=== PATIENT | male | born 1980 | race Caucasian/White ===

== ENCOUNTER 2024-12-29 11:30 | Inpatient (IN) | payer MEDICAID, SELFPAY ==
[2024-12-29] VITALS (58 sets, daily range): BP systolic 33–172; BP diastolic 22–91; PULSE 70–128; RESP 16–33; TEMP 34.8–36.3; O2SAT 35–100; BMI 43.0; BMI 41.1
--- NOTE | 2024-12-29 11:44 | CT_ITS ---
PROCEDURE: BRAIN/HEAD WITHOUT CONTRAST 12/29/2024 REASON FOR EXAM: MENTAL STATUS CHANGE TECHNIQUE: Procedure Code: CTBR Modality: CT Procedure: BRAIN/HEAD WITHOUT CONTRAST Coronal and Sagittal reconstruction series were provided. One or more dose reduction techniques were used (e.g., Automated exposure control, adjustment of the mA and/or kV according to patient size, use of iterative reconstruction technique. RADIATION DOSE SUMMARY: CTDlvol: 44.99 mGy DLP: 846.73 mGycm COMPARISON: None FINDINGS: There is loss of the normal dey-white matter differentiation and narrowing of the ventricles and near-complete effacement of the basilar cisterns consistent with diffuse cerebral edema. There is no clearly defined hyperdense subarachnoid hemorrhage. There is normal hyperdensity along the tentorium. There is no midline shift No skull fracture or scalp hematoma, there is extensive paranasal sinusitis CT/Brain/Head without Contrast IMPRESSION: Diffuse cerebral edema with loss of the dey-white matter differentiation, narr owing of the lateral ventricles and near-complete effacement of the basilar cisterns. Findings suggest anoxia No demonstrated acute hemorrhage or midline shift. Hyperdensity along the tent orium is normal No skull fracture or scalp hematoma Paranasal sinusitis Reading Location: [id number]
--- NOTE | 2024-12-29 11:45 | EKG12_ITS ---
Test Reason : Blood Pressure : */* mmHG Vent. Rate : 63 BPM Atrial Rate : 63 BPM P-R Int : 262 ms QRS Dur : 148 ms QT Int : 494 ms P-R-T Axes : 50 185 83 degrees QTcB Int : 505 ms Sinus rhythm with 1st degree A-V block with occasional Premature ventricular complexes Right bundle branch block Cannot rule out Inferior infarct , age undetermined Abnormal ECG No previous ECGs available Confirmed by ULICES ACKERMAN, MARCELA ([id number]), field map editor EMELI OLIVER ([id number]) on 12/30/2024 1:25:57 PM Referred By: Confirmed By: MARCELA ELENA MD
[2024-12-29] MEDS: Norepinephrine 8 MG in 0.9% Normal Saline (250mL Bag) 242 ML 9.4 MG CONT INF (11:47)
--- NOTE | 2024-12-29 11:47 | EX.ED.CRITCA ---
HPI History of Present Illness Chief Complaint: Cardiac Arrest Narrative Narrative: History and physical limited secondary to patient condition. History obtained from EMS. Didi reported that this was at 910 on a hanging up. It was an open call for about 20 minutes. When law enforcement arrived, patient was found outside, unresponsive, and cardiac arrest. Reportedly law enforcement performed compressions for approximately 10 minutes. Upon arrival, EMS reports that they placed him on a Arpan device and continued CPR. Patient received 3 rounds of epinephrine, then return of circulation spontaneously with palpable pulse. They gave 2 push doses of epinephrine and brought him to the emergency department. However, on arrival, patient was pulseless and cyanotic. 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 CHF (congestive heart failure) CAD (coronary artery disease) Afib Home Medications Medication Instructions Recorded Last Taken Type amiodarone 200 mg tablet 200 mg PO DAILY 12/29/24 Unknown History empagliflozin 10 mg tablet 10 mg PO DAILY 12/29/24 Unknown History (Jardiance) furosemide 40 mg tablet 40 mg PO BID 12/29/24 Unknown History metoprolol tartrate 25 mg tablet 25 mg PO BID 12/29/24 Unknown History oxycodone 5 mg tablet 5 mg PO Q6H PRN PRN pain 12/29/24 Unknown History warfarin 2 mg tablet 2 mg PO DAILY 12/29/24 Unknown History warfarin 4 mg tablet PO 12/29/24 Unknown History Allergy/AdvReac Type Severity Reaction Status Date / Time Penicillins Allergy edema Verified 12/29/24 12:40 Social History Smoking Status: Unknown if ever smoked ROS ROS ED ROS Narrative Review of systems unable to obtain from patient secondary to current condition. EXAM Physical Exam Narrative Exam Narrative: Skin cyanotic, no spontaneous respirations, no palpable pulse. Pupils fixed and dilated. No corneal reflex. Positive open wounds on bilateral thighs with surrounding erythema. Const Vital Signs: 12/29/24 11:34 12/29/24 11:40 12/29/24 11:41 Temperature 94.7 F L Temperature Source Rectal Pulse Rate 72 70 Pulse Rate [2] Respiratory Rate 18 18 Respiratory Effort Respiratory Pattern Normal Blood Pressure 85/45 L Blood Pressure Mean 58 Blood Pressure Source Blood Pressure Location Pulse Ox 92 99 Oxygen Delivery Method Mechanical Ventilator Oxygen Flow Rate (L/min) Fraction of Inspired Oxygen (FIO2) 100 12/29/24 11:44 12/29/24 11:47 12/29/24 11:52 Temperature Temperature Source Pulse Rate Pulse Rate [2] 72 Respiratory Rate Respiratory Effort Respiratory Pattern Blood Pressure 45/30 L 65/36 L Blood Pressure Mean 35 45 Blood Pressure Source Monitor Monitor Blood Pressure Location Left Arm Left Arm Pulse Ox Oxygen Delivery Method Ambu-Bag Oxygen Flow Rate (L/min) 15 Fraction of Inspired Oxygen (FIO2) 12/29/24 11:58 12/29/24 12:09 12/29/24 12:15 Temperature Temperature Source Pulse Rate 89 Pulse Rate [2] Respiratory Rate 22 H Respiratory Effort Respiratory Pattern Blood Pressure 69/36 L 85/48 L 114/54 L Blood Pressure Mean 47 60 74 Blood Pressure Source Monitor Monitor Blood Pressure Location Left Arm Left Arm Pulse Ox 97 Oxygen Delivery Method Mechanical Ventilator Oxygen Flow Rate (L/min) Fraction of Inspired Oxygen (FIO2) 12/29/24 12:18 12/29/24 12:30 12/29/24 12:30 Temperature 95.8 F L Temperature Source Temporal Pulse Rate 97 81 90 Pulse Rate [2] Respiratory Rate 19 H 18 20 H Respiratory Effort Respiratory Pattern Normal Normal Blood Pressure 149/69 H Blood Pressure Mean 95 Blood Pressure Source Blood Pressure Location Pulse Ox 97 98 97 Oxygen Delivery Method Mechanical Ventilator Oxygen Flow Rate (L/min) Fraction of Inspired Oxygen (FIO2) 70 40 12/29/24 12:34 12/29/24 12:45 12/29/24 12:47 Temperature 96 F L Temperature Source Temporal Pulse Rate 75 Pulse Rate [2] Respiratory Rate 20 H Respiratory Effort Mechanically Ventilated Respiratory Pattern Normal Blood Pressure 149/69 H 133/52 H Blood Pressure Mean 95 79 Blood Pressure Source Monitor Blood Pressure Location Pulse Ox 96 Oxygen Delivery Method Mechanical Ventilator Oxygen Flow Rate (L/min) Fraction of Inspired Oxygen (FIO2) 12/29/24 13:00 12/29/24 13:10 12/29/24 13:30 Temperature 95.5 F L Temperature Source Temporal Pulse Rate 71 72 Pulse Rate [2] Respiratory Rate 18 18 Respiratory Effort Respiratory Pattern Blood Pressure 172/76 H 172/76 H 146/65 H Blood Pressure Mean 108 108 92 Blood Pressure Source Monitor Blood Pressure Location Left Arm Pulse Ox 96 95 Oxygen Delivery Method Mechanical Ventilator Mechanical Ventilator Oxygen Flow Rate (L/min) Fraction of Inspired Oxygen (FIO2) 12/29/24 14:00 12/29/24 14:30 12/29/24 14:30 Temperature 96 F L Temperature Source Temporal Pulse Rate 78 80 78 Pulse Rate [2] Respiratory Rate 19 H 19 H 20 H Respiratory Effort Respiratory Pattern Normal Blood Pressure 129/78 H 124/75 H Blood Pressure Mean 95 91 Blood Pressure Source Blood Pressure Location Pulse Ox 97 98 97 Oxygen Delivery Method Mechanical Ventilator Mechanical Ventilator Oxygen Flow Rate (L/min) Fraction of Inspired Oxygen (FIO2) 40 12/29/24 15:00 Temperature 96.6 F L Temperature Source Temporal Pulse Rate 78 Pulse Rate [2] Respiratory Rate 20 H Respiratory Effort Respiratory Pattern Blood Pressure 137/70 H Blood Pressure Mean 92 Blood Pressure Source Blood Pressure Location Pulse Ox 97 Oxygen Delivery Method Mechanical Ventilator Oxygen Flow Rate (L/min) Fraction of Inspired Oxygen (FIO2) MDM MDM MDM Narrative Medical decision making narrative: Patient arrived in cardiac arrest. Arpan device was removed and compressions started immediately upon arrival. Patient did receive 1 ampoule of epinephrine and bicarbonate. He had spontaneous was return of circulation. Rectal temperature low at 94.7, placed on a Melanie hugger. Initial blood pressure 85/45. He was bolused an additional 1 L and placed on the nursing program manager. Igel replaced with endotracheal tube. 8.0 ET tube inserted to 26 at the lips with good color change. He did have equal breath sounds initially without epigastric noise, but ET tube had been pulled back to 26 at the lips after initial placement. CT of the brain, chest x-ray, basic laboratory work and lactic acid obtained including troponins. EKG was obtained and interpreted by myself independently normal sinus rhythm with first-degree block with occasional premature ventricular complexes at 63 bpm but no acute ST changes. No STEMI. I reviewed his laboratory work and he has a leukocytosis of 18.7, hemoglobin 12.9 with hematocrit 45.5, platelet count normal at 261. Carbon dioxide is low at 15.4, BUN is 26 with creatinine 2.35. Glucose is elevated at 275 so I do not think this was a hypoglycemic episode. Anion gap is elevated at 25. I do not feel this is diabetic ketoacidosis considering that he was in cardiac arrest. Hence, I do feel this is why his lactic acid is elevated at 12.8 and I do not think he is septic. AST elevated 97 with ALT 80 which may be secondary to hypotension/shock liver. Initial high-sensitivity troponin is 17. His xqveg-[id number]-hmck glucose was 200. Initial ABG showed pH low at 6.9 with a pCO2 elevated at 80 and pO2 328. Vent settings were changed by respiratory and repeat ABG obtained, now with a pH of 7.1 with pCO2 of 54 with pO2 at 96.5. Bicarb remains low. He is most likely acidotic from cardiac arrest. Patient was bolused a second liter of IV fluids. Additionally he was started on Levophed through the peripheral line. Received a call from the radiologist regarding the CT of the brain results. He has diffuse cerebral edema findings are consistent with diffuse anoxia. Chest x-ray in 1 view interpreted by myself independently shows the tip of the ET tube to be in good position, 2 cm above the iman. There are no pulmonary infiltrates. I reviewed the radiology report which confirms my independent interpretation. I did review outpatient information, and patient reportedly has history of renal cell carcinoma with metastasis to bone. He also has atrial fibrillation on amiodarone and warfarin. INR is currently pending. Given the severity of the results of the CT of the brain, his sister is on the way to the emergency department. His condition will be discussed with both his sister and his mother who will be on the telephone as well. I did receive the results of his INR which he takes for his atrial fibrillation and it is extremely supratherapeutic and elevated at 19. He was administered vitamin K 10 mg intravenously. In discussion with the radiologist, there was no evidence of an acute hemorrhage on the CT scan of the brain. At this point in time, in conversation with his mother and his sister, they are uncomfortable with withdrawal of care at this point in time and would like him admitted to the ICU for social work and palliative care/hospice consultation. I discussed the patient with the hospitalist for admission. Critical care time 33 minutes including time spent with direct care at bedside, arranging admission, and discussion with family. Patient in critical condition. Of note, patient is currently no longer requiring Levophed. The patient began having blood coming from his OG as well as rectally. I had a discussion with his sister currently. She is trying to have her father and her mother arrive, but knows that the signs of hemorrhage are concerning. Patient may be in DIC currently. In discussion with his sister, she is willing to sign a DNR Comfort Care only form. Hence, I do feel that since he is already intubated, that he could remain intubated and be admitted to the ICU here. She acknowledged that no further interventions would be warranted or initiated. If his blood pressure drops, pressors would not be started. She is agreeable to this. I will rediscussed the patient with Dr. Cui for admission to the ICU and palliative care/hospice consult. History & Record Review Discussion w/independent historian: EMS personnel and Family Lab Data Attestation: I reviewed the patient's lab results. Labs: Laboratory Results - last 24 hr 12/29/24 12/29/24 12/29/24 11:32 11:35 13:30 WBC 18.7 H RBC 4.70 Hgb 12.9 L Hct 45.5 MCV 96.8 H MCH 27.4 MCHC 28.4 L RDW Std Deviation 71.7 H RDW Coeff of Lee 20.1 H Plt Count 261 MPV 9.9 Neut % (Auto) Not Reportable Absolute Neuts (auto) 14.4 H Absolute Lymphs (auto) 2.98 Total Counted 100 Neutrophils % (Manual) 71 H Band Neutrophils % 6 H Lymphocytes % (Manual) 16 L Eosinophils % (Manual) 3 Metamyelocytes % 2 H Myelocytes % 2 H Diff Path Review May foll Platelet Estimate ADEQUATE RBC Morphology N CHROM Anisocytosis 1+ PT > 120.0 H INR > 19.5 H* Sodium 141 Potassium 5.0 Chloride 101 Carbon Dioxide 15.4 L Anion Gap 25 H BUN 26 H Creatinine 2.35 H Estim Creat Clear Calc 55.18 Est GFR (MDRD) Non-Af 34 L BUN/Creatinine Ratio 10.9 Glucose 275 H Lactic Acid 12.8 H* Calcium 8.6 Total Bilirubin 0.43 AST 97 H ALT 80 H Alkaline Phosphatase 96 Troponin T High Sens 17 Troponin T Hi Sens 2 Hr Total Protein 6.2 Albumin 3.4 L Globulin 2.8 Albumin/Globulin Ratio 1.2 Urine Color Urine Clarity Urine pH Ur Specific [place] Urine Protein Urine Glucose (UA) Urine Ketones Urine Occult Blood Urine Nitrite Urine Bilirubin Urine Urobilinogen Ur Leukocyte Esterase Urine RBC Urine WBC Ur Squamous Epith Cells Urine Bacteria Urine Mucus POC Glucose 200 H 12/29/24 12/29/24 13:40 14:10 WBC RBC Hgb Hct MCV MCH MCHC RDW Std Deviation RDW Coeff of Lee Plt Count MPV Neut % (Auto) Absolute Neuts (auto) Absolute Lymphs (auto) Total Counted Neutrophils % (Manual) Band Neutrophils % Lymphocytes % (Manual) Eosinophils % (Manual) Metamyelocytes % Myelocytes % Diff Path Review Platelet Estimate RBC Morphology Anisocytosis PT INR Sodium Potassium Chloride Carbon Dioxide Anion Gap BUN Creatinine Estim Creat Clear Calc Est GFR (MDRD) Non-Af BUN/Creatinine Ratio Glucose Lactic Acid Calcium Total Bilirubin AST ALT Alkaline Phosphatase Troponin T High Sens Troponin T Hi Sens 2 Hr 45 H Total Protein Albumin Globulin Albumin/Globulin Ratio Urine Color Yellow Urine Clarity Sl. Cloudy Urine pH 6.5 Ur Specific [place] 1.020 Urine Protein 500 H Urine Glucose (UA) 1000 H Urine Ketones Negative Urine Occult Blood 250 H Urine Nitrite Negative Urine Bilirubin Negative Urine Urobilinogen Normal Ur Leukocyte Esterase 25 H Urine RBC 10-25 SEEN Urine WBC 10-25 SEEN Ur Squamous Epith Cells 5-10 SEEN Urine Bacteria 0 SEEN Urine Mucus 0 SEEN POC Glucose ABG Data ABG results: ABG 12/29/24 12/29/24 12:03 13:16 Specimen Type ART ART Sample Site L Radial L Radial pH 6.92 L* 7.12 L* Bicarbonate Actual 16.6 L 17.6 L Total CO2 19 19 Base Excess -16 L -12 L O2 Saturation 100 H 94 O2 % 100.0 40.0 ABG pCO2 80.6 H* 54.0 H ABG pO2 328 H* 97 Irineo Test Positive Positive Respiration Rate 18 18 O2 Delivery Device Not entered Adult Vent Vent Mode AC AC Tidal Volume 500.0 500.0 POC PEEP 10 5 Crit Call To/Read Back Yes Yes Blood Gas Notified Whom dr jose luis guzman Blood Gas Notified Time 12:05:07 13:18:41 Radiography Chest X-Ray - ED: 1 View, Read by ED Physician, Read by Radiologist and No Acute Disease Diagnostic Testing: Clinical Impression(s) from Imaging Studies Brain CT 12/29/24 11:44 IMPRESSION: Diffuse cerebral edema with loss of the dey-white matter differentiation, narrowing of the lateral ventricles and near-complete effacement of the basilar cisterns. Findings suggest anoxia No demonstrated acute hemorrhage or midline shift. Hyperdensity along the tentorium is normal No skull fracture or scalp hematoma Paranasal sinusitis Reading Location: [id number] Chest X-Ray 12/29/24 12:01 IMPRESSION: No acute pulmonary process Support lines and tubes as described, no complications Reading Location: [facility] Management Discussion w/another healthcare provider: Hospitalist and hardboard factory worker/Case management Critical Care Time Critical care time (excluding procedures): 30-74 minutes (33), Including time spent:, Discussing w/Patient &/or Family/Sanitation Truck Cleaner, Discussing w/Consultants, Arranging Admission or Transfer and Performing Direct Patient Care at Bedside Discharge Plan Dx/Rx/DC Orders Clinical Impression: Cardiopulmonary arrest, Coma after anoxic event, Supratherapeutic INR, Anoxic cerebral edema, Respiratory failure Disposition Disposition: Acute Care [facility]
--- OUTSIDE RECORDS SUMMARY | 2024-12-29 11:52 | XMS RPT_ITS | CCD ---
Author Organization [facility] Care Team Providers Care Conservation Science Teacher Name Role Phone LOKI DR PROSPER ALSTON Primary Care Physician [phone] Prosper Manjarrez Unavailable Oncology Consult Unavailable Unavailable Supportive Oncology Unavailable Unavailable AbuGeorgia Sifuentes Unavailable Unavailable Cardiac Surgery Unavailable Unavailable Severo, Raju Unavailable Doron Gonzalez Unavailable Dr. Prosper Manjarrez Primary Care Unavaila Dr. Rivka Hinton Attending Unavailable AbuBear, Dr. Dorman Referring Unavailable Prosper Manjarrez Unavailable Unavailable Unavailable Loki, Dr. Prosper Carballo Primary Care UnavailMD GEORGIA Harris Attending Unavailable Georgia Brady Admitting Unavailable Han Stover Admitting Unavailable Loki, Dr. Prosper Carballo Primary Care UnavailHan Fuchs Attending Unavailable Loki, Dr. Prosper Carballo Primary Care UnavailDr. Lance Davila Admitting Unavailable Patient, Unavailable Referring Unavailable MD GEORGIA BRADY Attending Unavailable Loki, Dr. Prosper Carballo Primary Care UnavailMD GEORGIA Harris Attending Unavailable DORON GONZALEZ Attending Unavailable PROSPER MANJARREZ Primary Care Unavailable LOKIPROSPER Shea Primary Care Unavailable Loki Prosper ALSTON Primary Care Provider Rachael vailable SEVERORIVKA Referring Unavailable PROSPER MANJARREZ Primary Care Unavailable SEVERO RAJU Referring Unavailable LOKIPROSPER Shea Primary Care Unavailable Mayito Rounding Nurse, Robert Unavailable Unavai lable Garza, Estella S Unavailable Unavailable LOKI DO, DR PROSPER Valenzuela Primary Care Unavailabl e BHAVIK TRIANA Attending Unavailable LOKI DO, DR PROSPER Valenzuela Primary Care Unavailabl e BHAVIK TRIANA Attending Unavailable LOKI DO, DR PROSPER Valenzuela Primary Care Unavailabl e BHAVIK TRIANA Attending Unavailable LOKI DO, DR PROSPER Valenzuela Primary Care Unavailabl e BHAVIK TRIANA Admitting Unavailable BHAVIK TRIANA Attending Unavailable LOKI DO, DR PROSPER Valenzuela Primary Care Unavailabl e BHAVIK TRIANA Attending Unavailable LOKI DO, DR PROSPER Valenzuela Primary Care Unavailabl e LOKI DO, DR PROSPER Valenzuela Attending Unavailabl e JILL WHEAT Consulting Unavaila ble KAPPER EKG MONITOR-WORD PROCESSING SPECIALIST, MURALI Saldaña Referring Unavaila ble KAPPER EKG MONITOR-WORD PROCESSING SPECIALIST, MURALI Saldaña Attending Unavaila ble KAPPER EKG MONITOR-WORD PROCESSING SPECIALIST, MURALI Saldaña Admitting Unavaila ble LOKI DO, DR PROSPER Valenzuela Primary Care Unavailabl e LAURA ACKERMAN, REGINA Consulting Unavailable MARIO COCHRAN MD Attending Unavailable LOKI DO, DR PROSPER Valenzuela Primary Care Unavailabl e LOKI DO, DR PROSPER Valenzuela Primary Care Unavailabl e BHAVIK TRIANA Attending Unavailable ANDI STINSON MD Consulting Unavailable PRISCILLA BULL MD Attending Unavailable REGINA SANCHEZ MD Admitting Unavailable LOKI DO, DR PROSPER Valenzuela Primary Care Unavailabl e NOAH SEPULVEDA MD Consulting Unavailable EMILIO LOPEZ Consulting Unavailable LOKI DO, DR PROSPER Valenzuela Consulting Unavailabl e CORBY REESE MD Consulting Unavaila ble JANINA SEPULVEDA Consulting Unavai lable LOKI DO, DR PROSPER Valenzuela Primary Care Unavailabl e BHAVIK TRIANA Attending Unavailable LIAN FUNG MD Attending Unavailable LOKI DO, DR PROSPER Valenzuela Primary Care Unavailabl LIAN Mayorga MD Attending Unavailable LOKI DO, DR PROSPER Valenzuela Primary Care Unavailabl LIAN Mayorga MD Attending Unavailable LOKI DO, DR PROSPER Valenzuela Primary Care Unavailabl e LOKI DO, DR PROSPER Valenzuela Primary Care Unavailabl e BHAVIK TRIANA Attending Unavailable LOKI DO, DR PROSPER Valenzuela Primary Care Unavailabl e BHAVIK TRIANA Attending Unavailable LOKI DO, DR PROSPER Valenzuela Primary Care Unavailabl e BHAVIK TRIANA Attending Unavailable LOKI DO, DR PROSPER Valenzuela Primary Care Unavailabl e BHAVIK TRIANA Attending Unavailable LOKI DO, DR PROSPER Valenzuela Primary Care Unavailabl BHAVIK Dobbs Attending Unavailable LOKI DO, DR PROSPER Valenzuela Primary Care Unavailabl e BHAVIK TRIANA Attending Unavailable Yessi ACKERMAN, Noah Saldaña Unavailable [place] [address], [facility] Referring Unavailable [facility], [facility] Primary Care Unavailable Estella Hanson Attending Unavailable LOKI, PROSPER DO Consulting Unavailable LOKI, PROSPER DO Referring Unavailable SANCHEZ, SOURAV DO Admitting Unavailable SANCHEZ, SOURAV DO Primary Care Unavailable SANCHEZ, SOURAV DO Attending Unavailable PROVIDER, UNKNOWN Consulting Unavailable SANCHEZ, SOURAV DO Admitting Unavailable SANCHEZ, SOURAV DO Primary Care Unavailable SANCHEZ, SOURAV DO Attending Unavailable LOKI, PROSPER DO Consulting Unavailable PROVIDER, UNKNOWN Consulting Unavailable RIDER DO, DR LISBET Tay Attending Unavailable LOIK DO, DR PROSPER Valenzuela Primary Care Unavailabl LIAN Mayorga Attending Unavailable LOKI DO, DR PROSPER Valenzuela Primary Care Unavailabl e OLKI DO, DR PROSPER Valenzuela Primary Care Unavailabl e LOKI DO, DR PROSPER Valenzuela Attending Unavailabl e LOKI DO, DR PROSPER Valenzuela Primary Care Unavailabl e DONNA MOCK MD Attending Unavail able ELVIS MILLER, EZEQUIEL Attending Unavail able LOKI DO, DR PROSPER Valenzuela Primary Care Unavailabl e ELVIS MILLER, EZEQUIEL Attending Unavail able LOKI DO, DR PROSPER Valenzuela Primary Care Unavailabl e LOKI DO, DR PROSPER Valenzuela Primary Care Unavailabl e EZEQUIEL MULLER Attending Unavail able NIRALI ACKERMAN, DR GUTIERRES Attending Unavailable LOKI DO, DR PROSPER Valenzuela Primary Care Unavailabl rosalio TRIANA MD, DR GUTIERRES Attending Unavailable LOKI DO, DR PROSPER Valenzuela Primary Care Unavailabl e LOKI DO, DR PROSPER Valenzuela Attending Unavailabl e LOKI DO, DR PROSPER Valenzuela Primary Care Unavailabl e HERMAN MURILLO Attending Unava ilable LOKI DO, DR PROSPER Valenzuela Primary Care Unavailabl rosalio TRIANA MD, DR GUTIERRES Attending Unavailable LOKI DO, DR PROSPER Valenzuela Primary Care Unavailabl rosalio TRIANA MD, DR GUTIERRES Attending Unavailable LOKI DO, DR PROSPER Valenzuela Primary Care Unavailabl e ELVIS MILLER, EZEQUIEL Attending Unavail able LOKI DO, DR PROSPER Valenzuela Primary Care Unavailabl e LOKI DO, DR PROSPER Valenzuela Primary Care Unavailabl e LOKI DO, DR PROSPER Valenzuela Attending Unavailabl e LOKI DO, DR PROSPER Valenzuela Attending Unavailabl e LOKI DO, DR PROSPER Valenzuela Primary Care Unavailabl e LOKI DO, DR PROSPER Valenzuela Primary Care Unavailabl e FROMMELT DO, NORMA Attending Unavailable NIRALI ACKERMAN, DR GUTIERRES Attending Unavailable LOKI DO, DR PROSPER Valenzuela Primary Care Unavailadrian TRIANA MD, DR GUTIERRES Attending Unavailable LOKI DO, DR CHENG A Primary Care Unavailadrian TRIANA MD, DR GUTIERRES Attending Unavailable LOKI DO, DR PROSPER Valenzuela Primary Care Unavailabl e ELVIS MILLER, EZEUQIEL Attending Unavail able LOKI DO, DR PROSPER Valenzuela Primary Care Unavailabl e ELVIS MILLER, EZEQUIEL Attending Unavail able LOKI DO, DR PROSPER Valenzuela Primary Care Unavailadrian TRIANA MD, DR GUTIERRES Attending Unavailable LOKI DO, DR PROSPER Valenzuela Primary Care Unavailadrian TRIANA MD, DR GUTIERRES Attending Unavailable LOKI DO, DR PROSPER Valenzuela Primary Care Unavailabl e ELVIS MILLER, EZEQUIEL Attending Unavail able LOKI DO, DR CHENG A Primary Care Unavailadrian TRIANA MD, DR GUTIERRES Attending Unavailable LOKI DO, DR PROSPER Valenzuela Primary Care Unavailadrian TRIANA MD, DR GUTIERRES Attending Unavailable LOKI DO, DR PROSPER Valenzuela Primary Care Unavailabl e LOKI DO, DR CHENG A Primary Care Unavailadrian TRIANA MD, DR GUTIERRES Attending Unavailable LOKI DO, DR PROSPER Valenzuela Primary Care Unavailabl e ELVIS MILLRE, EZEQUIEL Attending Unavail able LORNA ACKERMAN, PAM HAMLIN MD, AISHWARYA Admitting Unavailable AISHWARYA HAMLIN MD Attending Unavailable LOKI DO, DR CHENG A Primary Care Unavailabl e ELVIS MILLER, EZEQUIEL Attending Unavail able LOKI DO, DR CHENG A Primary Care UnavailLIAN Archuleta MD Attending Unavailable LOKI DO, DR PROSPER Valenzuela Primary Care Unavailadrian TRIANA MD, DR GUTIERRES Attending Unavailable LOKI DO, DR CHENG A Primary Care Unavailabl rosalio HAMLIN MD, AISHWARYA Attending Unavailable LOKI DO, DR CHENG A [facility] Allergies Allergy Classification Reported Allergen(s) Allergy Type Date of Onset Reaction(s) Facility Penicillins (antibiotic) (2 sources) Penicillin; Translations: [penicillins] Drug Allergy Swelling [facility] (20 sources) Penicillin; Translations: [penicillins] Drug Allergy Swelling, Throat Swelling, Facial Swelling [facility] (6 sources) Penicillins; Translations: [Penicillins] Allergy to drug (finding) 3 [facility] (2 sources) Penicillins Propensity to adverse reactions 3 [facility] (1 source) Penicillin Drug Allergy [facility] Medications Current Medications Medication Drug Class(es) Dates Sig (Normalized) Sig (Original) acetaminophen 325 mg oral tablet (1 source) take 2 tablets by mouth every four hours as needed acetaminophen 325 mg oral tablet ; 2 tab(s) orally every 4 hours, As Needed for mild to moderate pain Quantity: 0 Refills: 0 Ordered: 29-Aug-2022 Sally Johnson Generic Substitution Allowed acetaminophen 325 mg / HYDROcodone bitartrate 5 mg oral tablet (1 source) Opioid Agonist Start: 10-26-2023 End: 10-29-2023 take 1 tablet by mouth every six hours as needed for pain [place] 325- 5 mg oral tablet Dose = 1 tab(s), Oral, q6h, PRN as needed for pain, X 3 day(s), # 12 tab(s), 0 Refill(s), Abscess, 154.2 Start Date: 10/26/23 Stop Date: 10/29/23 Status: Ordered amiodarone hydrochloride 200 mg oral tablet (20 sources) Antiarrhythmic Start: 10-22-2024 amiodarone 200 mg oral tablet Dose : 200 mg = 1 tab(s), Oral, qDay, # 30 tab(s), 5 Refill(s), Pharmacy: [facility]/pharmacy #[id number], 172.5, cm, 10/22/24 10:08:00 EDT, Height, kg, 10/22/24 10:08:00 EDT, Dosing Weight Start Date: 10/22/24 Status: Ordered Medication Dispense Status: Completed Quantity: 30.0 Unit: tab(s) Total Allowed Fills: 6 Fills Dispensed: 0 Start: 07-10-2024 amiodarone 200 mg oral tablet Dose : 200 mg = 1 tab(s), Oral, qDay, # 30 tab(s), 2 Refill(s), [id number], 172.2, cm, 07/03/24 11:40:00 EDT, Height, kg, 07/03/24 11:40:00 EDT, Dosing Weight Start Date: 07/10/24 Status: Ordered Medication Dispense Status: Completed Quantity: 30.0 Unit: tab(s) Total Allowed Fills: 3 Fills Dispensed: 0 Start: 05-15-2024 amiodarone 200 mg oral tablet Dose : 200 mg = 1 tab(s), Oral, qDay, # 30 tab(s), 0 Refill(s), [id number], 172.2, cm, 05/15/24 14:44:00 EDT, Height, kg, 05/15/24 14:44:00 EDT, Dosing Weight Start Date: 05/15/24 Status: Ordered Quantity: 30.0 Unit: tab(s) Repeat number: 1 Start: 09-05-2022 Amiodarone HCl - 200 MG Oral Tablet Quantity: 0 Refills: 0 Ordered: 05-Sep-2022 DO Start : 05-Sep-2022 Active Start: 08-29-2022 End: 09-27-2022 amiodarone 200 mg oral table t Dose : 200 mg = 1 tab(s), Oral, qDay, # 90 tab(s), 0 Refill(s) Start Date: 09/01/22 Status: Ordered Quantity: 90.0 Unit: tab(s) Repeat number: 1 aspirin 81 mg delayed release oral tablet (1 source) Platelet Aggregation Inhibitor, Nonsteroidal Anti-inflammatory Drug Start: 08-25-2022 take 1 tablet by mouth once daily aspirin 81 mg oral delayed release tablet ; 1 tab(s) orally once a day Quantity: 0 Refills: 0 Ordered: 25-Aug-2022 Sally Johnson Start: 25-Aug-2022 Generic Substitution Allowed betamethasone 0.5 mg/ml / clotrimazole 10 mg/ml topical cream (20 sources) Azole Antifungal, Corticosteroid Start: 11-30-2023 betamethasone-hua trimazole 0.05%-1% topical cream Apply 1 julia, Topical, BID, for 2 weeks then take 1 week off, may repeat if needed, # 45 gram(s), 0 Refill(s), Pharmacy: [facility]/pharmacy #[id number], Cream, 173.5, cm, 11/30/23 15:22:00 EDT, Height, 141.9, kg, 11/30/23 15:22:00 EDT, Dosing Weight Start Date: 11/30/23 Status: Ordered Medication Dispense Status: Completed Quantity: 45.0 Unit: g Total Allowed Fills: 1 Fills Dispensed: 0 Indications: Rash and other nonspecific skin eruption; cephalexin 500 mg oral capsule (3 sources) Cephalosporin Antibacterial Start: 01-25-2024 End: 02-04-2024 cephalexin 500 mg oral capsule Dose : 500 mg = 1 cap(s), Oral, QID, X 10 day(s), # 40 cap(s), 0 Refill(s), 02/04/24 1:22:00 AM EST, 136.4 Start Date: 01/25/24 Stop Date: 02/04/24 Status: Ordered Start: 09-12-2023 cephalexin 500 mg oral capsule 0 Refill(s), 181.8 Start Date: 09/12/23 Status: Ordered Start: 08-31-2023 End: 09-07-2023 cephalexin 500 mg oral capsu le Dose : 500 mg = 1 cap(s), Oral, q6hr, X 7 day(s), # 28 cap(s), 0 Refill(s), 09/07/23 6:55:00 PM EDT, 181.8 Start Date: 08/31/23 Stop Date: 09/07/23 Status: Ordered clindamycin 10 mg/ml topical lotion (5 sources) Lincosamide Antibacterial Start: 08-24-2023 clindamycin 1% topical lotion Apply 1 julia, Topical, BID, # 60 mL, 0 Refill(s), 181 Start Date: 08/24/23 Status: Ordered Start: 09-01-2021 clindamycin 15 0 mg oral capsule Dose : 150 mg = 1 cap(s), 0 Refill(s), 163.5 Start Date: 09/01/21 Status: Ordered Start: 08-03-2021 End: 08-10-2021 clindamycin 300 mg oral caps ule Dose : 300 mg = 1 cap(s), Oral, q6h, X 7 day(s), # 28 cap(s), 0 Refill(s), 08/10/21 11:28:00 EDT, 168.1 Start Date: 08/03/21 Stop Date: 08/10/21 Status: Ordered DME MISCellaneous (12 sources) Start: 08-28-2024 DME MISCellane ous See Instructions, 4x4 nonadherent gauze pads. 1 box., # 1 EA, 2 Refill(s), Surgical wound present, 124.8 Start Date: 08/28/24 Status: Ordered Medication Dispense Status: Completed Quantity: 1.0 Unit: EA Total Allowed Fills: 3 Fills Dispensed: 0 Indications: Other injury of unspecified body region, initial encounter; Start: 08-28-2024 DME MISCellane ous See Instructions, 3x4 inch nonadherent bandage. #50, # 1 EA, 2 Refill(s), Surgical wound present, 124.8 Start Date: 08/28/24 Status: Ordered Medication Dispense Status: Completed Quantity: 1.0 Unit: EA Total Allowed Fills: 3 Fills Dispensed: 0 Indications: Other injury of unspecified body region, initial encounter; Start: 08-28-2024 DME MISCellane ous See Instructions, paper tape. 1 roll, # 1 EA, 2 Refill(s), Surgical wound present, 124.8 Start Date: 08/28/24 Status: Ordered Medication Dispense Status: Completed Quantity: 1.0 Unit: EA Total Allowed Fills: 3 Fills Dispensed: 0 Indications: Other injury of unspecified body region, initial encounter; doxycycline hyclate 100 mg oral capsule (5 sources) Tetracycline-class Drug Start: 10-26-2023 End: 11-05-2023 doxycycline hyclate 100 mg oral capsule Dose : 100 mg = 1 cap(s), Oral, BID, X 10 day(s), # 20 cap(s), 0 Refill(s), 11/05/23 2:18:00 PM EDT, 154.2 Start Date: 10/26/23 Stop Date: 11/05/23 Status: Ordered Start: 10-20-2022 End: 10-30-2022 doxycycline hyclate 100 mg o ral capsule Dose : 100 mg = 1 cap(s), Oral, BID, X 10 day(s), # 20 cap(s), 0 Refill(s), 10/30/22 11:04:00 AM EDT, [id number], Folliculitis, 173, cm, 10/20/22 10:27:00 EDT, Height, 172.1, kg, 10/20/22 10:27:00 EDT, Dosing Weight Start Date: 10/20/22 Stop Date: 10/30/22 Status: Ordered empagliflozin 10 mg oral tablet (20 sources) Sodium-Glucose Cotransporter 2 Inhibitor Start: 05-15-2024 End: 02-22-2025 Jardiance 10 mg oral tablet Dose : 10 mg = 1 tab(s), Oral, qAM, # 90 tab(s), 3 Refill(s), [id number], 172.2, cm, 08/09/24 9:40:00 EDT, Height, kg, 08/09/24 9:40:00 EDT, Dosing Weight Start Date: 08/26/24 Stop Date: 02/22/25 Status: Ordered Medication Dispense Status: Completed Quantity: 90.0 Unit: tab(s) Total Allowed Fills: 4 Fills Dispensed: 0 Start: 09-26-2023 End: 05-13-2024 Jardiance 10 mg oral tablet Dose : 10 mg = 1 tab(s), Oral, qAM, # 30 tab(s), 5 Refill(s), Pharmacy: [facility]/pharmacy #[id number], 172.7, cm, 10/31/23 7:00:00 EDT, Height, kg, 10/31/23 7:00:00 EDT, Dosing Weight Start Date: 11/15/23 Stop Date: 05/13/24 Status: Ordered Quantity: 30.0 Unit: tab(s) Repeat number: 6 famotidine 20 mg oral tablet (20 sources) Histamine-2 Receptor Antagonist Start: 03-11-2024 take 1 tablet by mouth twice daily as needed famotidine 20 mg oral tablet See Instructions, 1 tab(s) Oral BID as needed for heart burn, # 60 tab(s), 5 Refill(s), [id number], 172.5, cm, 03/04/24 13:37:00 EST, Height, kg, 03/04/24 13:37:00 EST, Dosing Weight Start Date: 03/11/24 Status: Ordered Medication Dispense Status: Completed Quantity: 60.0 Unit: tab(s) Total Allowed Fills: 6 Fills Dispensed: 0 Start: 01-22-2024 take 1 tablet by danyelle twice daily as needed famotidine 20 mg oral tablet See Instructions, 1 tab(s) Oral BID as needed for heart burn, # 30 tab(s), 0 Refill(s), [id number], 172.7, cm, 12/27/23 10:34:00 EST, Height, kg, 01/22/24 11:23:00 EST, Dosing Weight Start Date: 01/22/24 Status: Ordered Quantity: 30.0 Unit: tab(s) Repeat number: 1 FLUoxetine 10 mg oral capsule (5 sources) Serotonin Reuptake Inhibitor Start: 08-07-2024 FLUoxetine 10 mg ora l capsule Dose : 10 mg = 1 cap(s), Oral, qDay, # 30 cap(s), 0 Refill(s) Start Date: 08/07/24 Status: Ordered Medication Dispense Status: Completed Quantity: 30.0 Unit: cap(s) Total Allowed Fills: 1 Fills Dispensed: 0 furosemide 40 mg oral tablet (20 sources) Loop Diuretic Start: 04-02-2024 Lasix 40 mg or al tablet Dose : 40 mg = 1 tab(s), Oral, BID, # 180 tab(s), 3 Refill(s), Pharmacy: [facility]/pharmacy #[id number], 172, cm, 03/11/24 15:17:00 EST, Height, kg, 04/02/24 11:06:00 EST, Dosing Weight Start Date: 04/02/24 Status: Ordered Medication Dispense Status: Completed Quantity: 180.0 Unit: tab(s) Total Allowed Fills: 4 Fills Dispensed: 0 Start: 09-27-2023 End: 03-29-2024 Lasix 40 mg oral tablet Dose : 40 mg = 1 tab(s), Oral, BID, # 60 tab(s), 4 Refill(s), Pharmacy: [facility]/pharmacy #[id number], 172.7, cm, 10/31/23 7:00:00 EDT, Height, kg, 10/31/23 7:00:00 EDT, Dosing Weight Start Date: 10/31/23 Stop Date: 03/29/24 Status: Ordered Quantity: 60.0 Unit: tab(s) Repeat number: 5 hydrOXYzine pamoate 25 mg oral capsule (1 source) Antihistamine Start: 01-26-2022 End: 02-02-2022 Vistaril 25 mg oral capsule Dose : 25 mg = 1 cap(s), Oral, QID, PRN as needed for anxiety, X 7 day(s), # 30 cap(s), 0 Refill(s), 02/02/22 11:16:00 EST, Anxiety Start Date: 01/26/22 Stop Date: 02/02/22 Status: Ordered iv contrast (will be provided with radiology test) (1 source) Start: 11-23-2023 End: 11-24-2023 iv contrast (will be provided with radiology test) Indications: Other secondary pulmonary hypertension (HCC) , CTEPH (chronic thromboembolic pulmonary hypertension) (HCC) , SOB (shortness of breath) CT Chest PE -Inject, intravenously, once for 1 dose.No IV access, insert saline lock prior to the beginning of sedation, infusion, injection of imaging exam. Discontinue saline lock post exam. If Pt. has a central line or IVAD, may access for administration according to line specific nursing protocol. Once exam is complete flush line and de-access according to line specific nursing protocol in the CT contrast administration guidelines link. 1 Each 11/23/2023 11/24/2023 Active ketoconazole 20 mg/ml medicated shampoo (3 sources) Azole Antifungal Start: 08-24-2023 ketoconazole 2% topical shampoo USE A WASH TO GROIN FOLDS ONCE DAILY FOR TWO WEEKS THEN DECREASE TO 2-3X WEEKLY FOR MAINTENANCE Start Date: 08/24/23 Status: Ordered linezolid 600 mg oral tablet (6 sources) Oxazolidinone Antibacterial Start: 07-22-2024 End: 07-29-2024 linezolid 600 mg oral tablet Dose : 600 mg = 1 tab(s), Oral, q12h, X 7 day(s), # 14 tab(s), 0 Refill(s), 07/29/24 3:04:00 PM EDT, Pharmacy: [facility]/pharmacy #[id number], Abscess of right thigh, 172, cm, 07/22/24 13:47:00 EDT, Height, 123, kg, 07/22/24 13:47:00 EDT, Dosing Weight Start Date: 07/22/24 Stop Date: 07/29/24 Status: Ordered Quantity: 14.0 Unit: tab(s) Repeat number: 1 Indications: Cutaneous abscess of right lower limb; Start: 02-26-2024 End: 03-07-2024 linezolid 600 mg oral tablet mg = tab(s), Oral, q12h, 0 Refill(s), 135.4 Start Date: 03/04/24 Status: Ordered Repeat number: 1 Lopressor 25mg--USE metoprolol tartrate 25 mg oral tablet (17 sources) Start: 09-01-2022 take 1 tablet by mouth once daily Lopressor 25mg--USE metoprolol tartrate 25 mg oral tablet qDay, 0 Refill(s) Start Date: 09/01/22 Status: Ordered Start: 09-01-2022 take 1 tablet by danyelle th twice daily Lopressor 25mg--USE metoprolol tartrate 25 mg oral tablet BID, 0 Refill(s) Start Date: 09/01/22 Status: Ordered Start: 09-01-2022 Lopressor 25mg --USE metoprolol tartrate 25 mg oral tablet 0 Refill(s) Start Date: 09/01/22 Status: Ordered melatonin 5 mg oral tablet (1 source) take 1 tablet by mouth once daily at bedtime melatonin 5 mg oral tablet ; 1 tab(s) orally once a day (at bedtime) Quantity: 0 Refills: 0 Ordered: 25-Aug-2022 Sally Johnson Generic Substitution Allowed meloxicam 15 mg oral tablet (1 source) Nonsteroidal Anti-inflammatory Drug Start: meloxicam 15 mg oral tablet Dose : 15 mg = 1 tab(s), Oral, qDay, # 30 tab(s), 0 Refill(s), Pharmacy: [facility]/pharmacy #[id number], Arthropathy of right shoulder, 172, cm, 12/08/21 10:24:00 EDT, Height Start Date: 12/08/21 Status: Ordered methylPREDNISolone 4 mg oral tablet (1 source) Corticosteroid Start: End: Medrol Dosepak 4 mg oral tablet 1 packet(s), Oral, qDay, as directed on package labeling, X 6 day(s), # 21 tab(s), 0 Refill(s), 08/02/23 3:37:00 PM EDT, [id number], 174, cm, 07/27/23 14:18:00 EDT, Height, kg, 07/27/23 14:18:00 EDT, Dosing Weight Start Date: 07/27/23 Stop Date: 08/02/23 Status: Ordered metoprolol tartrate 25 mg oral tablet (20 sources) beta-Adrenergic Nitesh Start: metoprolol tartrate 25 mg oral tablet Dose : 25 mg = 1 tab(s), Oral, BID, # 200 tab(s), 3 Refill(s), [id number], 172.7, cm, 10/30/24 14:33:00 EDT, Height, kg, 10/30/24 14:33:00 EDT, Dosing Weight Start Date: 10/30/24 Status: Ordered Medication Dispense Status: Completed Quantity: 200.0 Unit: tab(s) Total Allowed Fills: 4 Fills Dispensed: 0 Start: 10-22-2024 metoprolol tar trate 25 mg oral tablet Dose : 25 mg = 1 tab(s), Oral, BID, # 60 tab(s), 5 Refill(s), Pharmacy: [facility]/pharmacy #[id number], 172.5, cm, 10/22/24 10:08:00 EDT, Height, kg, 10/22/24 10:08:00 EDT, Dosing Weight Start Date: 10/22/24 Status: Ordered Medication Dispense Status: Completed Quantity: 60.0 Unit: tab(s) Total Allowed Fills: 6 Fills Dispensed: 0 Start: 10-31-2023 End: 06-19-2025 metoprolol tartrate 25 mg or al tablet Dose : 25 mg = 1 tab(s), Oral, BID, 0 Refill(s) Start Date: 10/31/23 Status: Ordered Medication Dispense Status: Completed Total Allowed Fills: 1 Fills Dispensed: 0 Start: 09-25-2023 End: 09-25-2023 Toprol-XL Start: 09/25/23 8:0 0:00 AM EDT, Dose = 25 mg, = 1 tab(s), Oral, 09/18/23 17:00:00 EDT Start Date: 09/25/23 Stop Date: 09/25/23 Status: Completed Start: 09-24-2023 End: 09-24-2023 Toprol-XL Start: 09/24/23 5:0 0:00 PM EDT, Dose = 25 mg, = 1 tab(s), Oral, 09/18/23 17:00:00 EDT Start Date: 09/24/23 Stop Date: 09/24/23 Status: Completed Start: 09-17-2023 End: 09-17-2023 Metoprolol Tartrate 25 mg or al tablet Start: 09/17/23 5:00:00 PM EDT, Dose = 25 mg, = 1 tab(s), Oral, 0, 09/12/23 17:35:00 EDT Start Date: 09/17/23 Stop Date: 09/17/23 Status: Completed Start: 09-17-2023 End: 09-17-2023 Metoprolol Tartrate 25 mg or al tablet Start: 09/17/23 8:00:00 AM EDT, Dose = 25 mg, = 1 tab(s), Oral, 0, 09/12/23 17:35:00 EDT Start Date: 09/17/23 Stop Date: 09/17/23 Status: Completed Start: 08-29-2022 End: 09-27-2022 take 1 tablet by mouth twice daily Metoprolol Tartrate 25 MG Oral Tablet TAKE 1 TABLET TWICE DAILY. Quantity: 180 Refills: 3 Ordered: 16-Sep-2022 Rivka Elkins MD Start : 16-Sep-2022 Active 09/16 tyson woodard sent in error. Start: 08-09-2022 End: 08-09-2022 Lopressor Start: 08/09/22 16 :00:00 EDT, Dose = 100 mg, = 1 tab(s), Oral, Hold if SBP (mmHg) Start Date: 08/09/22 Stop Date: 08/09/22 Status: Completed Start: 08-09-2022 End: 08-09-2022 Lopressor Start: 08/09/22 8: 00:00 EDT, Dose = 100 mg, = 1 tab(s), Oral, Hold if SBP (mmHg) Start Date: 08/09/22 Stop Date: 08/09/22 Status: Completed Start: 08-09-2022 End: 08-09-2022 Lopressor Start: 08/09/22 0: 00:00 EDT, Dose = 100 mg, = 1 tab(s), Oral, Hold if SBP (mmHg) Start Date: 08/09/22 Stop Date: 08/09/22 Status: Completed metroNIDAZOLE 500 mg oral tablet (4 sources) Nitroimidazole Antimicrobial Start: 07-30-2024 End: 08-21-2024 metroNIDAZOLE 500 mg oral tablet Dose : 500 mg = 1 tab(s), Oral, q8h, # 42 tab(s), 0 Refill(s), 125.6 Start Date: 08/07/24 Stop Date: 08/21/24 Status: Ordered Quantity: 42.0 Unit: tab(s) Repeat number: 1 minocycline 100 mg oral capsule (3 sources) Tetracycline-class Drug Start: 07-30-2024 End: 08-13-2024 minocycline 100 mg oral capsule Dose : 100 mg = 1 cap(s), Oral, q12hr, X 14 day(s), # 28 cap(s), 0 Refill(s), 08/13/24 4:59:00 PM EDT, Pharmacy: [facility]/pharmacy #[id number], 172.7, cm, 07/30/24 13:53:00 EDT, Height, 122, kg, 07/30/24 13:53:00 EDT, Dosing Weight Start Date: 07/30/24 Stop Date: 08/13/24 Status: Ordered Quantity: 28.0 Unit: cap(s) Repeat number: 1 Multiple Vitamins with Minerals oral tablet (1 source) Start: 08-25-2022 take 1 tablet by mouth once daily Multiple Vitamins with Minerals oral tablet ; 1 tab(s) orally once a day Quantity: 0 Refills: 0 Ordered: 25-Aug-2022 Sally Johnson Start: 25-Aug-2022 Generic Substitution Allowed 24 hr nicotine 0.875 mg/hr transdermal system (6 sources) Cholinergic Nicotinic Agonist Start: 10-20-2022 End: 11-10-2022 apply 1 dose transdermal route once daily nicotine 14mg / 24hrs transdermal patch Dose = 1 patch(es), Transdermal, qDay, use after 21 mg patches, X 21 day(s), # 21 patch(es), 0 Refill(s), [id number], Current smoker, 173, cm, 10/20/22 10:27:00 EDT, Height, kg, 10/20/22 10:27:00 EDT, Dosing Weight Start Date: 10/20/22 Stop Date: 11/10/22 Status: Ordered Start: 10-20-2022 End: 11-10-2022 apply 1 dose transdermal route once daily nicotine 21mg / 24hrs transdermal patch Dose = 1 patch(es), Transdermal, qDay, X 21 day(s), # 21 patch(es), 0 Refill(s), [id number], Current smoker, 173, cm, 10/20/22 10:27:00 EDT, Height, kg, 10/20/22 10:27:00 EDT, Dosing Weight Start Date: 10/20/22 Stop Date: 11/10/22 Status: Ordered Start: 10-20-2022 End: 11-10-2022 apply 1 dose transdermal route once daily nicotine 7mg / 24hrs transdermal patch Dose = 1 patch(es), Transdermal, qDay, use after 14mg patches, X 21 day(s), # 21 patch(es), 0 Refill(s), [id number], Current smoker, 173, cm, 10/20/22 10:27:00 EDT, Height, kg, 10/20/22 10:27:00 EDT, Dosing Weight Start Date: 10/20/22 Stop Date: 11/10/22 Status: Ordered nicotine 21 mg/24 hr transdermal film, extended release (4 sources) Start: 11-06-2020 nicotine 21 mg/24 hr transdermal film, extended release Apply 1 patch(es), Transdermal, qDay, # 21 patch(es), 0 Refill(s), Pharmacy: [facility]/pharmacy #[id number], Tobacco abuse, 172.7, cm, 10/13/20 20:19:00 EDT, Height, 168.6, kg, 11/06/20 9:50:00 EDT, Dosing Weight Start Date: 11/06/20 Status: Ordered nystatin 184729 unt/ml topical cream (1 source) Polyene Antifungal Start: 08-29-2022 nystatin 100,000 units/g topical cream ; Apply topically to affected area (abdomen/groin) 3 times a day Quantity: 15 Refills: 0 Ordered: 29-Aug-2022 Sally Johnson Start: 29-Aug-2022 Generic Substitution Allowed Comments: For external use only. Comment on above: For external use onl y. 60 actuat olodaterol 0.0025 mg/actuat / tiotropium 0.0025 mg/actuat inhalation spray (3 sources) Anticholinergic, beta2-Adrenergic Agonist Start: 07-28-2023 take 1 dose by inhalation every twenty-four hours Stiolto Respimat 60 ACT 2.5 mcg-2.5 mcg/inh inhalation aerosol Dose = 2 puff(s), Inhalation, q24h, replace order for Trelegy due to insurance., # 4 gram(s), 11 Refill(s), [id number], COPD without exacerbation, 173, cm, 07/28/23 10:25:00 EDT, Height, kg, 07/28/23 10:25:00 EDT, Dosing Weight Start Date: 07/28/23 Status: Ordered ondansetron 4 mg oral tablet (20 sources) Serotonin-3 Receptor Antagonist Start: 10-31-2023 Zofran 4 mg oral tablet Dose : 4 mg = 1 tab(s), Oral, q6h, PRN Nausea/Vomiting, 0 Refill(s) Start Date: 10/31/23 Status: Ordered Medication Dispense Status: Completed Total Allowed Fills: 1 Fills Dispensed: 0 Start: 10-26-2023 End: 10-30-2023 ondansetron 4 mg oral tablet , disintegrating Dose : 4 mg = 1 tab(s), Oral, q6h, X 4 day(s), # 16 tab(s), 0 Refill(s), 10/30/23 2:19:00 PM EDT Start Date: 10/26/23 Stop Date: 10/30/23 Status: Ordered oxyCODONE hydrochloride 5 mg oral tablet (20 sources) Opioid Agonist Start: 07-03-2024 oxyCODONE 5 mg oral tablet ( IMMEDIATE release ) Dose : 5 mg = 1 tab(s), Oral, q6hr, PRN for pain, may fill on 11/02/24 Frequency increased, # 120 tab(s), 0 Refill(s), Pharmacy: [facility]/pharmacy #[id number], Cancer related pain Metastatic renal cell carcinoma. S/P Left cytoreductive nephrectomy 08/14/20. 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., 172.5, cm, 10/22/24 10:08:00 EDT, Height, 132.4, kg, 10/22/24 10:08:00 EDT, Dosing Weight Start Date: 10/22/24 Status: Ordered Medication Dispense Status: Completed Quantity: 120.0 Unit: tab(s) Total Allowed Fills: 1 Fills Dispensed: 0 Indications: Neoplasm related pain (acute) (chronic); Malignant neoplasm of unspecified kidney, except renal pelvis; Start: 06-05-2024 oxyCODONE 5 mg oral tablet ( IMMEDIATE release ) Dose : 5 mg = 1 tab(s), Oral, q8h, PRN for pain, # 90 tab(s), 0 Refill(s), Pharmacy: [facility]/pharmacy #[id number], Cancer related pain Metastatic renal cell carcinoma. S/P Left cytoreductive nephrectomy 08/14/20. 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., 172.2, cm, 06/05/24 11:37:00 EDT, Height, 134.3, kg, 06/05/24 10:15:00 EDT, Dosing Weight Start Date: 06/05/24 Status: Ordered Quantity: 90.0 Unit: tab(s) Repeat number: 1 Indications: Malignant neoplasm of unspecified kidney, except renal pelvis; Neoplasm related pain (acute) (chronic); Start: 03-04-2024 oxyCODONE 5 mg oral tablet ( IMMEDIATE release ) Dose : 5 mg = 1 tab(s), Oral, q8h, PRN for pain, # 90 tab(s), 0 Refill(s), [id number], Renal cancer, 172.5, cm, 03/04/24 13:37:00 EST, Height, 135.4, kg, 03/04/24 13:37:00 EST, Dosing Weight Start Date: 03/04/24 Status: Ordered Quantity: 90.0 Unit: tab(s) Repeat number: 1 Indication: Malignant neoplasm of unspecified kidney, except renal pelvis Start: 02-01-2024 oxyCODONE 5 mg oral tablet ( IMMEDIATE release ) Dose : 5 mg = 1 tab(s), Oral, q8h, PRN for pain, # 90 tab(s), 0 Refill(s), [id number], Renal cancer, 172.7, cm, 02/01/24 12:00:00 EST, Height, 135.6, kg, 02/01/24 12:00:00 EST, Dosing Weight Start Date: 02/01/24 Status: Ordered Quantity: 90.0 Unit: tab(s) Repeat number: 1 Indication: Malignant neoplasm of unspecified kidney, except renal pelvis Start: 01-10-2024 oxyCODONE 5 mg oral tablet ( IMMEDIATE release ) Dose : 5 mg = 1 tab(s), Oral, q8h, PRN for pain, # 90 tab(s), 0 Refill(s), [id number], Renal cancer, 172.7, cm, 12/27/23 10:34:00 EST, Height, 141.5, kg, 12/27/23 10:34:00 EST, Dosing Weight Start Date: 01/10/24 Status: Ordered Start: 12-11-2023 oxyCODONE 5 mg oral tablet ( IMMEDIATE release ) Dose : 5 mg = 1 tab(s), Oral, q8h, PRN for pain, # 90 tab(s), 0 Refill(s), [id number], Renal cancer, 173.5, cm, 11/30/23 15:22:00 EDT, Height, 141.9, kg, 11/30/23 15:22:00 EDT, Dosing Weight Start Date: 12/11/23 Status: Ordered Start: 11-16-2023 oxyCODONE 5 mg oral tablet ( IMMEDIATE release ) Dose : 5 mg = 1 tab(s), Oral, q8h, PRN for pain, # 90 tab(s), 0 Refill(s), Pharmacy: [facility]/pharmacy #[id number], Renal cancer, 172.7, cm, 11/16/23 11:33:00 EDT, Height, 142, kg, 11/16/23 11:33:00 EDT, Dosing Weight Start Date: 11/16/23 Status: Ordered Start: 10-18-2023 oxyCODONE 5 mg oral tablet ( IMMEDIATE release ) Dose : 5 mg = 1 tab(s), Oral, q8h, PRN for pain, # 90 tab(s), 0 Refill(s), Pharmacy: [facility]/pharmacy #[id number], Renal cancer, 172.7, cm, 10/06/23 14:19:00 EDT, Height, 150, kg, 10/06/23 14:19:00 EDT, Dosing Weight Start Date: 10/18/23 Status: Ordered Start: 10-06-2023 take 1 tablet by danyelle th every eight hours as needed for pain oxyCODONE 5 mg oral tablet ( IMMEDIATE release ) TAKE 1 TABLET BY MOUTH EVERY 8 HOURS NEEDED FOR PAIN Start Date: 10/06/23 Status: Ordered Start: 09-06-2023 oxyCODONE 5 mg oral tablet ( IMMEDIATE release ) Dose : 5 mg = 1 tab(s), Oral, q8h, PRN as needed for pain, # 90 tab(s), 0 Refill(s), Pharmacy: [facility]/pharmacy #[id number], Renal cancer, 170, cm, 08/24/23 15:59:00 EDT, Height, 181.8, kg, 08/31/23 14:50:00 EDT, Dosing Weight Start Date: 09/06/23 Status: Ordered Start: 08-09-2023 oxyCODONE 5 mg oral tablet ( IMMEDIATE release ) Dose : 5 mg = 1 tab(s), Oral, q8h, PRN as needed for pain, # 90 tab(s), 0 Refill(s), Pharmacy: [facility]/pharmacy #[id number], Renal cancer, 172.7, cm, 08/09/23 8:36:00 EDT, Height, 181, kg, 08/09/23 8:36:00 EDT, Dosing Weight Start Date: 08/09/23 Status: Ordered Start: 03-16-2023 oxyCODONE 5 mg oral tablet ( IMMEDIATE release ) Dose : 5 mg = 1 tab(s), Oral, q8h, PRN as needed for pain, # 90 tab(s), 0 Refill(s), Pharmacy: [id number], Renal cancer, 172.7, cm, 02/16/23 12:03:00 EST, Height, 177.1, kg, 02/16/23 12:03:00 EST, Dosing Weight Start Date: 03/16/23 Status: Ordered Start: 02-03-2023 oxyCODONE 5 mg oral tablet ( IMMEDIATE release ) Dose : 5 mg = 1 tab(s), Oral, q8h, PRN as needed for pain, # 90 tab(s), 0 Refill(s), [id number], Renal cancer, 172.7, cm, 01/19/23 11:28:00 EST, Height, 169.7, kg, 01/19/23 11:28:00 EST, Dosing Weight Start Date: 02/03/23 Status: Ordered Start: 01-19-2023 oxyCODONE 5 mg oral tablet ( IMMEDIATE release ) Dose : 5 mg = 1 tab(s), Oral, q8h, PRN as needed for pain, may fill on 03/04/23, # 90 tab(s), 0 Refill(s), [id number], Renal cancer, 172.7, cm, 01/19/23 11:28:00 EST, Height, 169.7, kg, 01/19/23 11:28:00 EST, Dosing Weight Start Date: 01/19/23 Status: Ordered Start: 12-01-2022 oxyCODONE 5 mg oral tablet ( IMMEDIATE release ) Dose : 5 mg = 1 tab(s), Oral, q8h, PRN as needed for pain, # 90 tab(s), 0 Refill(s), Pharmacy: [facility]/pharmacy #[id number], Renal cancer, 172.7, cm, 11/24/22 11:41:00 EDT, Height, 169.3, kg, 11/24/22 11:41:00 EDT, Dosing Weight Start Date: 12/01/22 Status: Ordered Start: 10-24-2022 oxyCODONE 5 mg oral tablet ( IMMEDIATE release ) Dose : 5 mg = 1 tab(s), Oral, q8h, PRN as needed for pain, # 90 tab(s), 0 Refill(s), Pharmacy: [facility]/pharmacy #[id number], Renal cancer, 173, cm, 10/24/22 14:03:00 EDT, Height, 172.1, kg, 10/20/22 10:27:00 EDT, Dosing Weight Start Date: 10/24/22 Status: Ordered Start: 09-29-2022 oxyCODONE 5 mg oral tablet ( IMMEDIATE release ) Dose : 5 mg = 1 tab(s), Oral, q8h, PRN as needed for pain, # 90 tab(s), 0 Refill(s), Pharmacy: [facility]/pharmacy #[id number], Renal cancer, 172.7, cm, 09/29/22 10:52:00 EDT, Height, 169.2, kg, 09/29/22 10:52:00 EDT, Dosing Weight Start Date: 09/29/22 Status: Ordered Start: 09-01-2020 oxyCODONE 5 mg oral tablet ( IMMEDIATE release ) Dose : 5 mg = 1 tab(s), Oral, q8h, PRN PRN as needed for pain, # 90 tab(s), 0 Refill(s), Pharmacy: [facility]acy #[id number], Renal cancer, 172.7, cm, 06/09/22 11:10:00 EDT, Height, 166.7, kg, 06/09/22 11:10:00 EDT, Dosing Weight Start Date: 06/21/22 Status: Ordered Miralax (20 sources) Osmotic Laxative Start: 01-20-2022 take 255 g by mouth once daily as needed for congestion Miralax 255 gm bottle gram(s) =, Oral, qDay, PRN Congestion, 0 Refill(s) Start Date: 01/20/22 Status: Ordered Start: 01-20-2022 take 255 g by mouth once daily Miralax 255 gm bottle gram(s) =, Oral, qDay, 0 Refill(s) Start Date: 01/20/22 Status: Ordered Start: 11-06-2020 polyethylene g lycol 3350 oral powder for reconstitution Dose : 17 gram(s) =, Oral, qDay, dissolve in water or juice. may use 1-2 times daily., # 255 gram(s), 5 Refill(s), [id number], 172.7, cm, 10/13/20 20:19:00 EDT, Height, kg, 11/06/20 9:50:00 EDT, Dosing Weight Start Date: 11/06/20 Status: Ordered polyethylene gly col 3350 oral powder for reconstitution ; 17 gram(s) orally once a day, As Needed for constipation. May buy Miralax over the counter. Quantity: 0 Refills: 0 Ordered: 29-Aug-2022 Sally Johnson Generic Substitution Allowed polyethylene glycol 3350 oral powder for reconstitution (11 sources) Start: 11-06-2020 polyethylene glycol 3350 oral powder for reconstitution Dose : 17 gram(s) =, Oral, qDay, dissolve in water or juice. may use 1-2 times daily., # 255 gram(s), 5 Refill(s), [id number], 172.7, cm, 10/13/20 20:19:00 EDT, Height, kg, 11/06/20 9:50:00 EDT, Dosing Weight Start Date: 11/06/20 Status: Ordered predniSONE 20 mg oral tablet (1 source) Start: 12-25-2020 End: 01-01-2021 take 2 tablets by mouth once daily, then take 1 tablet by mouth once daily predniSONE 20 mg oral tablet See Instructions, 2 tabs daily for 5 days, then 1 tab daily for 2 days., # 12 tab(s), 0 Refill(s), 01/01/21 14:06:00 EST, [id number], 172, cm, 12/25/20 13:33:00 EST, Height, kg, 12/25/20 13:33:00 EST, Dosing Weight Start Date: 12/25/20 Stop Date: 01/01/21 Status: Ordered riociguat 2.5 mg oral tablet (20 sources) Soluble Guanylate Cyclase Stimulator Start: 07-26-2024 Adempas 2.5 mg oral tablet Dose : 2.5 mg = 1 tab(s), Oral, TID Start Date: 07/26/24 Status: Ordered Medication Dispense Status: Completed Total Allowed Fills: 1 Fills Dispensed: 0 Start: 05-15-2024 Adempas 1 mg o ral tablet Dose : 1 mg = 1 tab(s), Oral, TID, # 90 tab(s), 1 Refill(s), Pharmacy: [facility] #[id number], Pulmonary hypertension, 172.2, cm, 05/15/24 14:44:00 EDT, Height, kg, 05/15/24 14:44:00 EDT, Dosing Weight Start Date: 05/15/24 Status: Ordered Quantity: 90.0 Unit: tab(s) Repeat number: 2 Indications: Pulmonary hypertension, unspecified; Start: 12-14-2023 Adempas 1 mg o ral tablet Dose : 1 mg = 1 tab(s), Oral, TID, # 90 tab(s), 0 Refill(s) Start Date: 12/14/23 Status: Ordered Quantity: 90.0 Unit: tab(s) Repeat number: 1 Start: 11-21-2023 Adempas 0.5 mg oral tablet Dose : 0.5 mg = 1 tab(s), Oral, TID, # 90 tab(s), 0 Refill(s) Start Date: 11/21/23 Status: Ordered Senna Leaves (11 sources) Start: 11-17-2020 senna 8.6 mg o ral tablet Dose : 17.2 mg = 2 tab(s), Oral, BID, PRN as needed for constipation, # 20 tab(s), 0 Refill(s) Start Date: 11/17/20 Status: Ordered sennosides, fdc 8.6 mg oral tablet (20 sources) Start: 10-07-2024 senna (sennosi isamar) 8.6 mg oral tablet Dose : 17.2 mg = 2 tab(s), Oral, BID, PRN as needed for constipation, # 120 tab(s), 5 Refill(s), Pharmacy: [facility]/pharmacy #[id number], 172.7, cm, 09/17/24 10:34:00 EDT, Height, kg, 09/17/24 10:34:00 EDT, Dosing Weight Start Date: 10/07/24 Status: Ordered Medication Dispense Status: Completed Quantity: 120.0 Unit: tab(s) Total Allowed Fills: 6 Fills Dispensed: 0 Start: 11-16-2023 senna (sennosi isamar) 8.6 mg oral tablet Dose : 17.2 mg = 2 tab(s), Oral, BID, PRN as needed for constipation, # 120 tab(s), 3 Refill(s), Pharmacy: [facility]acy #[id number], 172.7, cm, 11/16/23 11:33:00 EDT, Height, kg, 11/16/23 11:33:00 EDT, Dosing Weight Start Date: 11/16/23 Status: Ordered Medication Dispense Status: Completed Quantity: 120.0 Unit: tab(s) Total Allowed Fills: 4 Fills Dispensed: 0 Start: 08-09-2023 senna (sennosi isamar) 8.6 mg oral tablet Dose : 17.2 mg = 2 tab(s), Oral, BID, PRN as needed for constipation, # 120 tab(s), 3 Refill(s), Pharmacy: [facility] #[id number], 172.7, cm, 08/09/23 8:36:00 EDT, Height, kg, 08/09/23 8:36:00 EDT, Dosing Weight Start Date: 08/09/23 Status: Ordered Start: 09-01-2022 senna (sennosi isamar) 8.6 mg oral tablet Dose : 17.2 mg = 2 tab(s), Oral, BID, PRN as needed for constipation, # 120 tab(s), 3 Refill(s), Pharmacy: [facility]acy #[id number], 172.7, cm, 09/01/22 9:58:00 EDT, Height, kg, 09/01/22 9:58:00 EDT, Dosing Weight Start Date: 09/01/22 Status: Ordered Start: 11-17-2020 senna 8.6 mg o ral tablet Dose : 17.2 mg = 2 tab(s), Oral, BID, PRN as needed for constipation, # 20 tab(s), 0 Refill(s) Start Date: 11/17/20 Status: Ordered take [address] [facility] twice daily as needed senna (sennosides) 8.6 mg oral tablet ; 2 tab(s) orally 2 times a day, As Needed Quantity: 0 Refills: 0 Ordered: 11-Aug-2022 Felipe Darlin Generic Substitution Allowed spironolactone 25 mg oral tablet (20 sources) Aldosterone Antagonist Start: 11-04-2024 Aldactone 25 mg oral tablet Dose : 25 mg = 1 tab(s), Oral, qDay, Take with food, # 30 tab(s), 2 Refill(s), Pharmacy: [facility]/pharmacy #[id number], 172.7, cm, 10/30/24 14:33:00 EDT, Height, kg, 10/30/24 14:33:00 EDT, Dosing Weight Start Date: 11/04/24 Status: Ordered Medication Dispense Status: Completed Quantity: 30.0 Unit: tab(s) Total Allowed Fills: 3 Fills Dispensed: 0 Start: 04-08-2024 Aldactone 25 m g oral tablet Dose : 25 mg = 1 tab(s), Oral, qDay, Take with food, # 30 tab(s), 8 Refill(s), Pharmacy: [facility]acy #[id number], 172, cm, 04/04/24 13:44:00 EST, Height, kg, 04/04/24 13:44:00 EST, Dosing Weight Start Date: 04/08/24 Status: Ordered Medication Dispense Status: Completed Quantity: 30.0 Unit: tab(s) Total Allowed Fills: 9 Fills Dispensed: 0 Start: 03-20-2024 Aldactone 25 m g oral tablet Dose : 25 mg = 1 tab(s), Oral, qDay, Take with food, # 30 tab(s), 8 Refill(s), Pharmacy: [facility] #[id number], 172, cm, 03/11/24 15:17:00 EST, Height, kg, 03/11/24 15:30:00 EST, Dosing Weight Start Date: 03/20/24 Status: Ordered Quantity: 30.0 Unit: tab(s) Repeat number: 9 Start: 11-23-2023 Aldactone 25 m g oral tablet Dose : 25 mg = 1 tab(s), Oral, qDay, Take with food, # 30 tab(s), 3 Refill(s), [id number], 172.7, cm, 11/16/23 11:33:00 EDT, Height, kg, 11/16/23 11:33:00 EDT, Dosing Weight Start Date: 11/23/23 Status: Ordered Quantity: 30.0 Unit: tab(s) Repeat number: 4 Start: 10-31-2023 Aldactone 25 m g oral tablet Dose : 25 mg = 1 tab(s), Oral, qDay, Take with food, # 30 tab(s), 3 Refill(s), Pharmacy: [facility] #[id number], 172.7, cm, 10/31/23 7:00:00 EDT, Height, kg, 10/31/23 7:00:00 EDT, Dosing Weight Start Date: 10/31/23 Status: Ordered sulfamethoxazole 800 mg / trimethoprim 160 mg oral tablet (3 sources) Dihydrofolate Reductase Inhibitor Antibacterial, Sulfonamide Antimicrobial Start: 10-20-2024 End: 10-30-2024 take 1 tablet by mouth twice daily sulfamethoxazole-trimethoprim 800 mg-160 mg oral tablet Dose = 1 tab(s), Oral, BID, replace minocycline due to wound culture sensitivity, X 10 day(s), # 20 tab(s), 0 Refill(s), [id number], 172.5, cm, 10/16/24 13:43:00 EDT, Height, 130.5, kg, 10/16/24 13:43:00 EDT, Dosing Weight Start Date: 10/20/24 Stop Date: 10/30/24 Status: Ordered Medication Dispense Status: Completed Quantity: 20.0 Unit: tab(s) Total Allowed Fills: 1 Fills Dispensed: 0 Start: 01-25-2024 End: 02-04-2024 take 1 tablet by mouth twice daily Bactrim DS 800 mg-160 mg oral tablet Dose = 1 tab(s), Oral, BID, X 10 day(s), # 20 tab(s), 0 Refill(s), 136.4 Start Date: 01/25/24 Stop Date: 02/04/24 Status: Ordered Trelegy Ellipta 100 mcg-62.5 mcg-25 mcg/inh inhalation powder (14 sources) Start: 07-28-2023 take 1 dose by mouth once daily Trelegy Ellipta 100 mcg-62.5 mcg-25 mcg/inh inhalation powder Dose = 1 puff(s), Inhalation, qDay, at the same time every day. Following administration, rinse mouth with water after use (do not swallow)., # 1 EA, 11 Refill(s), Pharmacy: [facility][id number], COPD - Chronic obstructive pulmonary disease, 173, cm, 07/28/23 10:25:00 EDT, Height, kg, 07/28/23 10:25:00 EDT, Dosing Weight Start Date: 07/28/23 Status: Ordered Start: 04-14-2023 take 1 dose by mouth once daily Trelegy Ellipta 100 mcg-62.5 mcg-25 mcg/inh inhalation powder Dose = 1 puff(s), Inhalation, qDay, at the same time every day. Following administration, rinse mouth with water after use (do not swallow)., # 1 EA, 0 Refill(s), COPD - Chronic obstructive pulmonary disease Start Date: 04/14/23 Status: Ordered triamcinolone acetonide 1 mg/ml topical cream (12 sources) Corticosteroid Start: 09-12-2023 triamcinolone 0.1% topical cream Apply 1 julia, Topical, BID, # 80 gram(s), 0 Refill(s), Cream, 181.8 Start Date: 09/12/23 Status: Ordered Start: 02-15-2023 triamcinolone 0.1% topical cream Apply 1 julia, Topical, BID, apply a thin film to affected area, # 160 gram(s), 3 Refill(s), Pharmacy: [facility]acy #[id number], Cream, 172.7, cm, 01/19/23 11:28:00 EST, Height, 169.7, kg, 01/19/23 11:28:00 EST, Dosing Weight Start Date: 02/15/23 Status: Ordered Start: 12-01-2022 triamcinolone 0.1% topical cream Apply 1 julia, Topical, BID, apply a thin film to affected area, # 160 gram(s), 3 Refill(s), Pharmacy: [facility]/pharmacy #[id number], Cream, 172.7, cm, 11/24/22 11:41:00 EDT, Height, 169.3, kg, 11/24/22 11:41:00 EDT, Dosing Weight Start Date: 12/01/22 Status: Ordered Start: 11-15-2022 triamcinolone 0.1% topical cream Apply 1 julia, Topical, BID, apply a thin film to affected area, # 80 gram(s), 2 Refill(s), [id number], Cream, 173, cm, 10/27/22 10:35:00 EDT, Height, 176.6, kg, 10/27/22 10:35:00 EDT, Dosing Weight Start Date: 11/15/22 Status: Ordered Start: 10-24-2022 triamcinolone 0.1% topical cream Apply 1 julia, Topical, BID, apply a thin film to affected area, # 80 gram(s), 1 Refill(s), [id number], Cream, 173, cm, 10/24/22 14:03:00 EDT, Height, 172.1, kg, 10/20/22 10:27:00 EDT, Dosing Weight Start Date: 10/24/22 Status: Ordered warfarin sodium 2 mg oral tablet (20 sources) Vitamin K Antagonist Start: 11-04-2024 warfarin 2 mg oral tablet Dose : 2 mg = 1 tab(s), Oral, qDay, # 30 tab(s), 5 Refill(s), [id number], 172.7, cm, 10/30/24 14:33:00 EDT, Height, kg, 10/30/24 14:33:00 EDT, Dosing Weight Start Date: 11/04/24 Status: Ordered Medication Dispense Status: Completed Quantity: 30.0 Unit: tab(s) Total Allowed Fills: 6 Fills Dispensed: 0 Start: 11-04-2024 warfarin 4 mg oral tablet Dose : 4 mg = 1 tab(s), Oral, qDay, 4mg tabs: 1 1/2 tabs MWF 2 tabs all other days, # 30 tab(s), 5 Refill(s), [id number], 172.7, cm, 10/30/24 14:33:00 EDT, Height, kg, 10/30/24 14:33:00 EDT, Dosing Weight Start Date: 11/04/24 Status: Ordered Medication Dispense Status: Completed Quantity: 30.0 Unit: tab(s) Total Allowed Fills: 6 Fills Dispensed: 0 Start: 06-24-2024 warfarin 2 mg oral tablet Dose : 2 mg = 1 tab(s), Oral, qDay, # 30 tab(s), 2 Refill(s), [id number], 172.2, cm, 06/05/24 12:53:00 EDT, Height, kg, 06/05/24 12:53:00 EDT, Dosing Weight Start Date: 06/24/24 Status: Ordered Medication Dispense Status: Completed Quantity: 30.0 Unit: tab(s) Total Allowed Fills: 3 Fills Dispensed: 0 Start: 02-19-2024 warfarin 2 mg oral tablet Dose : 2 mg = 1 tab(s), Oral, qDay, # 30 tab(s), 2 Refill(s), [id number], 172.7, cm, 02/19/24 10:49:00 EST, Height, kg, 02/19/24 10:49:00 EST, Dosing Weight Start Date: 02/19/24 Status: Ordered Quantity: 30.0 Unit: tab(s) Repeat number: 3 Start: 11-15-2023 warfarin 2 mg oral tablet Dose : 2 mg = 1 tab(s), Oral, qDay, # 30 tab(s), 2 Refill(s), [id number], 172.7, cm, 10/31/23 7:00:00 EDT, Height, kg, 10/31/23 7:00:00 EDT, Dosing Weight Start Date: 11/15/23 Status: Ordered Quantity: 30.0 Unit: tab(s) Repeat number: 3 Start: 09-25-2023 End: 09-19-2024 warfarin 5 mg oral tablet Do se : 5 mg = 1 tab(s), Oral, Monday, 0 Refill(s) Start Date: 10/31/23 Status: Ordered Start: 10-20-2022 warfarin 5 mg oral tablet 0 Refill(s) Start Date: 09/12/23 Status: Ordered Start: 09-05-2022 Warfarin Yarau m 5 MG Oral Tablet Quantity: 0 Refills: 0 Ordered: 05-Sep-2022 DO Start : 05-Sep-2022 Active Start: 09-01-2022 warfarin 5 mg oral tablet Dose : 5 mg = 1 tab(s), Oral, qDay, # 30 tab(s), 0 Refill(s) Start Date: 09/01/22 Status: Ordered Start: 08-29-2022 take 1 tablet by danyelle th once daily in the evening warfarin 5 mg oral tablet ; 1 tab(s) orally once a day (in the evening) Quantity: 30 Refills: 0 Ordered: 29-Aug-2022 Sally Johnson Start: 29-Aug-2022 Generic Substitution Allowed Completed/Discontinued Medications Medication Drug Class(es) Dates Sig (Normalized) Sig (Original) acetaminophen 325 mg / oxyCODONE hydrochloride 5 mg oral tablet (4 sources) Opioid Agonist Start: 09-05-2022 oxyCODONE-Acetaminophe n 5-325 MG Oral Tablet Quantity: 0 Refills: 0 Ordered: 05-Sep-2022 DO Start : 05-Sep-2022 Active Cardizem (1 source) Calcium Channel Nitesh Start: 08-01-2022 End: 08-01-2022 Cardizem Start: 08/01/22 17:30:00 EDT, Dose = 15 mg, = 3 mL, IV Push, Once, Stop: 08/01/22 17:30:00 EDT, 08/01/22 17:29:00 EDT Notes: Give BOLUS over 2 minutesPediatric patients: give BOLUS over 5 minutes ( Start Date: 08/01/22 Stop Date: 08/01/22 Status: Completed 0.8 ml enoxaparin sodium 150 mg/ml prefilled syringe (3 sources) Low Molecular Weight Heparin Start: 07-24-2024 End: 07-31-2024 inject 0.8 mL by subcutaneous injection every twelve hours Lovenox 120 mg/0.8 mL injectable solution Dose : 120 mg = 0.8 mL, Subcutaneous, q12h, X 7 day(s), # 11.2 mL, 0 Refill(s), 07/31/24 3:20:00 PM EDT, Pharmacy: [facility]/pharmacy #[id number], 172.7, cm, 07/24/24 14:57:00 EDT, Height, kg, 07/24/24 14:57:00 EDT, Dosing Weight Start Date: 07/24/24 Stop Date: 07/31/24 Status: Ordered Quantity: 11.2 Unit: mL Repeat number: 1 Laxative Formula Oral Tablet (4 sources) Start: 09-05-2022 Laxative Formula Oral Tablet Quantity: 0 Refills: 0 Ordered: 05-Sep-2022 DO Start : 05-Sep-2022 Active perflutren lipid microspheres (Definity) injection 0.5 mL (1 source) Start: 11-23-2022 End: 11-23-2022 perflutren lipid microspheres (Definity) injection 0.5 mL PURELAX 17 GRAM/DOSE POWDER (GRAM) (3 sources) Start: 08-24-2023 PURELAX 17 GRAM/DOSE POWDER (GRAM) PURELAX 17 GRAM/DOSE POWDER (GRAM), 1cup powder, Oral, qDay, PRN Constipation, 0 Refill(s), 181 Start Date: 08/24/23 Status: Ordered Stool Softener TABS (4 sources) Start: 09-05-2022 Stool Softener TABS Quantity: 0 Refills: 0 Ordered: 05-Sep-2022 DO Start : 05-Sep-2022 Active Problems Active Problems Problem Classification Problem Date Documented Da te Episodic/Chronic Acute and unspecified renal failure (2 sources) Acute kidney failure, unspecified; Translations: [Acute renal failure syndrome] Onset: 08-29-2022 Episodic Acute posthemorrhagic anemia (1 source) Acute posthemorrhagic anemia; Translations: [Acute posthemorrhagic anemia] Onset: 09-22-2022 Episodic Administrative/social admission (1 source) Advance directive discussed with patient; Translations: [Other specified counseling] 08-17-2022 Episodic Alcohol-related disorders (20 sources) Alcohol abuse; Translations: [Alcohol abuse, uncomplicated] Onset: 11-27-2022 07-18-2020 Chronic Allergic reactions (1 source) Allergy status to penicillin; Translations: [Allergy status to penicillin] Onset: 08-29-2022 Episodic Anxiety disorders (4 sources) Anxiety disorder; Translations: [Anxiety disorder, unspecified] Onset: 01-26-2022 Chronic Cancer of kidney and renal pelvis (20 sources) Renal cell carcinoma; Translations: [Malignant tumor of kidney] Onset: 05-05-2021 12-02-2020 Chronic Cancer of kidney and renal pelvis (7 sources) History of malignant neoplasm of kidney; Translations: [Personal history of malignant neoplasm of kidney] Onset: 11-27-2022 11-27-2022 Episodic Comment on above: metastatic ... 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 Congestive heart failure; nonhypertensive (10 sources) Congestive heart failure; Translations: [Congestive heart failure, unspecified] Onset: 08-19-2022 08-19-2022 Chronic Congestive heart failure; nonhypertensive (2 sources) Congestive heart failure; nonhypertensive 08-10-2022 Coronary atherosclerosis and other heart disease (1 source) Atherosclerotic heart disease of [place] coronary artery without angina pectoris; Translations: [Athscl heart disease of [place] coronary artery w/o ang pctrs] Onset: 08-29-2022 Chronic Deficiency and other anemia (2 sources) Deficiency and other anemia 08-20-2022 Essential hypertension (1 source) Essential (primary) hypertension; Translations: [Essential (primary) hypertension] Onset: 09-22-2022 Chronic Fluid and electrolyte disorders (7 sources) Hypo-osmolality and or hyponatremia; Translations: [Hypo-osmolality and hyponatremia] Onset: 08-29-2022 Episodic Genitourinary symptoms and ill-defined conditions (2 sources) Hematuria, unspecified; Translations: [Blood in urine] Onset: 08-29-2022 Episodic Hypertension with complications and secondary hypertension (1 source) Hypertensive heart disease with heart failure; Translations: [Hypertensive heart disease with heart failure] Onset: 08-29-2022 Chronic Inflammatory conditions of male genital organs (2 sources) Cellulitis of penis; Translations: [Cellulitis of corpus cavernosum and penis] Onset: 09-12-2023 Chronic Intestinal infection (20 sources) Viral gastroenteritis 07-02-2019 Episodic Lymphadenitis (1 source) Localized enlarged lymph nodes; Translations: [Localized enlarged lymph nodes] Episodic Mood disorders (6 sources) Moderate major depression 08-09-2024 Chronic Other aftercare (12 sources) Long-term current use of drug therapy; Translations: [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] Onset: 12-23-2021 Episodic Other aftercare (3 sources) Patient encounter status; Translations: [Encounter for palliative care] 08-17-2022 Episodic Other aftercare (1 source) Drug therapy finding; Translations: [Encounter for therapeutic drug monitoring] 08-26-2022 Episodic Other aftercare (4 sources) Post-discharge follow-up; Translations: [Other follow-up examination] Episodic Other aftercare (1 source) Encounter for therapeutic drug level monitoring; Translations: [Encounter for therapeutic drug level monitoring] Onset: 09-22-2022 Episodic Other aftercare (1 source) Other care home (current) drug therapy; Translations: [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] Onset: 08-29-2022 Episodic Other aftercare (4 sources) Seen by palliative care medicine service; Translations: [Encounter for palliative care] Onset: 11-16-2023 Episodic Other aftercare (6 sources) Surgical follow-up 08-29-2024 Episodic Other and ill-defined heart disease (9 sources) Mass of thoracic structure; Translations: [Other ill-defined heart diseases] Onset: 11-27-2022 08-10-2022 Chronic Comment on above: found on BONNIE 07/2022 s/p resection; Other and ill-defined heart disease (1 source) Structural disorder of heart; Translations: [Other ill-defined heart diseases] 08-11-2022 Chronic Other and ill-defined heart disease (8 sources) Other ill-defined heart diseases; Translations: [Other ill-defined heart diseases] Onset: 09-22-2022 Chronic Other and ill-defined heart disease (3 sources) Intracardiac thrombosis, not elsewhere classified; Translations: [Intracardiac thrombosis, not elsewhere classified] Onset: 08-10-2022 Chronic Other and unspecified benign neoplasm (2 sources) Benign neoplasm of heart; Translations: [Benign neoplasm of heart] Onset: 08-18-2022 08-19-2022 Episodic Other bone disease and musculoskeletal deformities (1 source) Disorder of bone, unspecified; Translations: [Disorder of bone, unspecified] Onset: 08-29-2022 Episodic Other circulatory disease (2 sources) Low blood pressure; Translations: [Hypotension, unspecified] 08-19-2022 Episodic Other circulatory disease (1 source) Hypotension, unspecified; Translations: [Hypotension, unspecified] Onset: 09-22-2022 Episodic Other circulatory disease (1 source) History of cerebrovascular disease; Translations: [Personal history of other diseases of the circulatory system] Episodic Other connective tissue disease (1 source) Bilateral localized swelling of lower limbs; Translations: [Swelling of limb] 08-26-2022 Episodic Other connective tissue disease (1 source) Disorder of soft tissue; Translations: [Other specified soft tissue disorders] Episodic Other diseases of kidney and ureters (20 sources) Renal mass; Translations: [Other specified disorders of kidney and ureter] Onset: 11-27-2022 08-14-2020 Chronic Other diseases of kidney and ureters (1 source) Disorder of kidney and/or ureter; Translations: [Other specified disorders of kidney and ureter] Onset: 01-20-2022 Chronic Other fractures (6 sources) Fracture of eleventh thoracic vertebra; Translations: [Closed fracture of dorsal [thoracic] vertebra without mention of spinal cord injury] Onset: 11-27-2022 11-27-2022 Episodic Comment on above: d/t lytic bone lesio n; Other gastrointestinal disorders (20 sources) Therapeutic opioid induced constipation; Translations: [Other constipation] 08-23-2022 Episodic Other gastrointestinal disorders (1 source) Ascites; Translations: [Other ascites] Episodic Other gastrointestinal disorders (1 source) Constipation, unspecified; Translations: [Constipation, unspecified] Episodic Other gastrointestinal disorders (4 sources) Drug-induced constipation; Translations: [Drug induced constipation] Onset: 11-16-2023 Episodic Other lower respiratory disease (20 sources) Multiple nodules of lung; Translations: [Other nonspecific abnormal finding of lung field] Onset: 11-27-2022 12-02-2020 Episodic Other lower respiratory disease (1 source) Radiologic infiltrate of lung ; Translations: [Other nonspecific abnormal finding of lung field] 08-11-2022 Episodic Other lower respiratory disease (8 sources) Dyspnea on exertion; Translations: [Shortness of breath] Onset: 11-27-2022 11-23-2022 Episodic Other lower respiratory disease (1 source) Other nonspecific abnormal finding of lung field; Translations: [Other nonspecific abnormal finding of lung field] Onset: 09-22-2022 Episodic Other lower respiratory disease (1 source) Hemoptysis; Translations: [Hemoptysis] Onset: 08-29-2022 Episodic Other lower respiratory disease (1 source) Dyspnea; Translations: [Shortness of breath] 11-23-2023 Episodic Other nervous system disorders (2 sources) Neoplasm related pain (acute) (chronic); Translations: [Neoplasm related pain (acute) (chronic)] Onset: 09-22-2022 Chronic Other nervous system disorders (20 sources) Pain due to neoplastic disease; Translations: [Neoplasm related pain (acute) (chronic)] Onset: 11-16-2023 Chronic Other nervous system disorders (2 sources) Postoperative pain ; Translations: [Other acute postoperative pain] 08-23-2022 Episodic Other nervous system disorders (1 source) Other acute postprocedural pain; Translations: [Other acute postprocedural pain] Onset: 09-22-2022 Episodic Other nutritional; endocrine; and metabolic disorders (3 sources) Body mass index 40+ - severely obese; Translations: [Body mass index (BMI) 50.0-59.9, adult] Onset: 09-12-2023 Chronic Other nutritional; endocrine; and metabolic disorders (4 sources) Obesity; Translations: [Obesity, unspecified] Onset: 03-04-2024 Chronic Other nutritional; endocrine; and metabolic disorders (20 sources) Morbid obesity; Translations: [Morbid (severe) obesity due to excess calories] Onset: 11-27-2022 Chronic Other nutritional; endocrine; and metabolic disorders (1 source) Body mass index (BMI) 50.0-59.9, adult; Translations: [Body mass index [BMI] 50.0-59.9, adult] Onset: 09-22-2022 Chronic Other nutritional; endocrine; and metabolic disorders (1 source) Hypomagnesemia; Translations: [Hypomagnesemia] Onset: 08-29-2022 Chronic Other nutritional; endocrine; and metabolic disorders (3 sources) Morbid (severe) obesity due to excess calories; Translations: [Morbid (severe) obesity due to excess calories] Onset: 08-29-2022 Chronic Other nutritional; endocrine; and metabolic disorders (3 sources) Extreme obesity with alveolar hypoventilation; Translations: [Morbid (severe) obesity with alveolar hypoventilation] Onset: 03-04-2024 Chronic Other nutritional; endocrine; and metabolic disorders (1 source) Obesity, unspecified; Translations: [Obesity, unspecified] Onset: 09-17-2024 Chronic Other nutritional; endocrine; and metabolic disorders (1 source) Morbid (severe) obesity with alveolar hypoventilation; Translations: [Morbid (severe) obesity with alveolar hypoventilation] Onset: 09-17-2024 Chronic Other screening for suspected conditions (not mental disorders or infectious disease) (2 sources) Blood culture positive for microorganism; Translations: [Other nonspecific findings on examination of blood] 08-11-2022 Episodic Other upper respiratory infections (1 source) Acute upper respiratory infection; Translations: [Acute upper respiratory infection, unspecified] Episodic Pathological fracture (3 sources) Pathological fracture, other site, initial encounter for fracture; Translations: [Pathological fracture] Onset: 08-29-2022 Episodic Pleurisy; pneumothorax; pulmonary collapse (2 sources) Atelectasis; Translations: [Pleural effusion, not elsewhere classified] Onset: 10-10-2022 Episodic Pneumonia (except that caused by tuberculosis or sexually transmitted disease) (1 source) Pneumonia, unspecified organism; Translations: [Pneumonia, unspecified organism] Onset: 08-29-2022 Episodic Pulmonary heart disease (13 sources) Pulmonary hypertension; Translations: [Other chronic pulmonary heart diseases] Onset: 09-22-2022 08-19-2022 Chronic Pulmonary heart disease (20 sources) Other pulmonary embolism without acute cor pulmonale; Translations: [Pulmonary embolism] Onset: 08-29-2022 Episodic Comment on above: 07/2022 s/p ECOS Ackerman man; Residual codes; unclassified (6 sources) Obstructive sleep apnea of adult; Translations: [Obstructive sleep apnea (adult)(pediatric)] Onset: 11-27-2022 11-27-2022 Chronic Residual codes; unclassified (2 sources) Obstructive sleep apnea (adult) (pediatric); Translations: [Obstructive sleep apnea (adult) (pediatric)] Onset: 08-29-2022 Chronic Residual codes; unclassified (1 source) Sleep apnea; Translations: [Sleep apnea, unspecified] Onset: 09-12-2023 Chronic Residual codes; unclassified (2 sources) Obstructive sleep apnea syndrome; Translations: [Obstructive sleep apnea (adult) (pediatric)] Onset: 09-17-2024 Chronic Residual codes; unclassified (20 sources) Tobacco user; Translations: [Tobacco use] Onset: 03-04-2024 07-18-2020 Episodic Residual codes; unclassified (1 source) Current drinker; Translations: [Alcohol use, unspecified, uncomplicated] Episodic Residual codes; unclassified (1 source) Acquired absence of kidney; Translations: [Acquired absence of kidney] Onset: 09-22-2022 Episodic Residual codes; unclassified (1 source) Edema; Translations: [Edema, unspecified] Onset: 09-15-2023 Episodic Residual codes; unclassified (1 source) Absent kidney; Translations: [Acquired absence of kidney] Episodic Residual codes; unclassified (1 source) Edema, generalized; Translations: [Generalized edema] Episodic Residual codes; unclassified (1 source) H/O: radiation exposure; Translations: [Personal history of irradiation] Episodic Residual codes; unclassified (1 source) H/O: chemotherapy; Translations: [Personal history of antineoplastic chemotherapy] Episodic Residual codes; unclassified (1 source) Insomnia; Translations: [Insomnia, unspecified] Onset: 09-17-2024 Episodic Respiratory failure; insufficiency; arrest (adult) (2 sources) Acute respiratory failure; Translations: [Acute respiratory failure with hypoxia] Onset: 08-29-2022 Episodic Respiratory failure; insufficiency; arrest (adult) (2 sources) Respiratory failure; insufficiency; arrest (adult) 08-19-2022 Secondary malignancies (20 sources) Secondary malignant neoplasm of bone; Translations: [Secondary malignant neoplasm of bone] Onset: 11-27-2022 12-02-2020 Chronic Secondary malignancies (20 sources) Metastatic renal cell carcinoma 12-22-2020 Chronic Secondary malignancies (20 sources) Secondary malignant neoplasm of bone; Translations: [Secondary malignant neoplasm of bone] Onset: 09-22-2022 Chronic Septicemia (except in labor) (1 source) Septic arterial embolism; Translations: [Septic arterial embolism] Onset: 08-29-2022 Episodic Skin and subcutaneous tissue infections (20 sources) Cellulitis of abdominal wall ; Translations: [Cellulitis of abdominal wall] Onset: 09-12-2023 Episodic Substance-related disorders (20 sources) Cigarette smoker ; Translations: [Nicotine dependence, unspecified, uncomplicated] Onset: 08-29-2022 12-02-2020 Chronic Substance-related disorders (20 sources) Marijuana user; Translations: [Cannabis use, unspecified, uncomplicated] Onset: 11-27-2022 12-02-2020 Episodic Unclassified (20 sources) Chronic disease absent 07-28-2014 Unclassified (20 sources) Fracture of eleventh thoracic vertebra 02-04-2021 Unclassified (2 sources) ATRIAL CLOT 08-09-2022 Comment on above: ATRIAL CLOT Unclassified (2 sources) Body mass index [BMI] 50.0-59.9, adult 08-12-2022 Unclassified (2 sources) Primary hypertension 08-18-2022 Unclassified (1 source) PULMONARY EMBOLECTOMY 08-29-2022 Comment on above: PULMONARY EMBOLECTOM Y Unclassified (1 source) XRAY 40 MINUTES PRIOR TO VISIT 08-24-2022 Comment on above: XRAY 40 MINUTES PRIO R TO VISIT Unclassified (1 source) RN PHONE VISIT 08-24-2022 Comment on above: RN PHONE VISIT Unclassified (1 source) HOSP FUV POST RIGHT ATRIAL MASS REMOVAL EST CARE 08-25-2022 Comment on above: HOSP FUV POST RIGHT ATRIAL MASS REMOVAL EST CARE Unclassified (2 sources) Right atrial mass 08-10-2022 Unclassified (1 source) Pulmonary infiltrates 08-11-2022 Unclassified (1 source) Blood culture positive for microorganism 08-11-2022 Unclassified (1 source) Mass of heart 08-11-2022 Unclassified (1 source) Counseling regarding advance directives and goals of care 08-17-2022 Unclassified (1 source) Constipation due to opioid therapy 08-23-2022 Unclassified (1 source) Anticoagulation management encounter 08-26-2022 Unclassified (1 source) Encounter for monitoring bridging anticoagulation therapy 08-26-2022 Unclassified (1 source) Localized swelling of both lower extremities 08-26-2022 Unclassified (1 source) Thrombus in heart chamber 08-29-2022 Unclassified (1 source) H/O pulmonary thrombosis 08-29-2022 Unclassified (1 source) Contact with and (suspected) exposure to COVID-19; Translations: [Contact with and (suspected) exposure to COVID-19] Onset: 08-29-2022 Unclassified (20 sources) Patient encounter status; Translations: [Encounter for other specified prophylactic measures] Onset: 07-03-2024 11-14-2023 Unclassified (1 source) Encounter for other specified prophylactic measures; Translations: [Encounter for other specified prophylactic measures] Onset: 11-19-2024 Urinary tract infections (1 source) Cystitis; Translations: [Cystitis, unspecified without hematuria] Onset: 08-31-2023 Episodic Past or Other Problems Problem Classification Problem Date Documented Da te Episodic/Chronic Other aftercare (1 source) Encounter for palliative care; Translations: [Encounter for palliative care] Onset: 09-17-2024 Episodic Other gastrointestinal disorders (1 source) Drug induced constipation; Translations: [Drug induced constipation] Onset: 09-17-2024 Episodic Other lower respiratory disease (2 sources) Shortness of breath; Translations: [Shortness of breath] Onset: 11-23-2022 Episodic Other skin disorders (2 sources) Hidradenitis suppurativa; Translations: [Hidradenitis suppurativa] Onset: 01-31-2024 Episodic Residual codes; unclassified (2 sources) Insomnia, unspecified; Translations: [Insomnia, unspecified] Onset: 08-29-2022 Episodic Results Test Name Value Interpretation Reference Range Facility CV VENOUS LEG RT CV VENOUS LEG RT [address] ? [place] [address] ? Patient: LYNDSAY LOPEZ Phone#: : 1980 Age: 44 Gender: M Pt. Type: Out Account: [id number] Location: [facility] Ordering: SOURAV BRADFORD Exam Date: 11/27/2024/7:14 Family Phys: PROSPER LOKI Charge Code: 798371 Physician: [place] Order #: [id number] Dose#: PROCEDURE: VENOUS DOPPLER RT LEG COMPARISON: None. INDICATIONS: R/o DVT TECHNIQUE: Color duplex Doppler ultrasound evaluation analysis was performed in the usual manner. AIR INTELLIGENCE OFFICER: SHANKAR MENENDEZ RVT [facility] RISK FACTORS FOR VENOUS DISEASE: Other R/o DVT EXAMINATION: RIGHT +Present -Reduced o Absent LEFT SPONT PHASIC AUG REFLUX COMP SPONT PHASIC AUG REFLUX COMP + + + o + CFV + + + o + + SFJ + + + o + FV (prox) + FV (mid) + FV (dist) + + + o + POP V + + + o + T/P TRUNK + + + o + PTV + + + o + PERONEAL V + GSV GASTROC SOLEAL V AIR INTELLIGENCE OFFICER'S NOTES: FINDINGS: Continued Report - Page 2 of 2 Patient: LYNDSAY LOPEZ Phone#: : 1980 Age: 44 Gender: M Pt. Type: Out Account: [id number] Location: [facility] Ordering: SOURAV BRADFORD Exam Date: 11/27/2024/7:14 Family Phys: PROSPER LOKI Charge Code: 632773 Physician: [place] Order #: [id number] Dose#: THROMBI: None visible. COMPRESSIBILITY: Normal. OTHER: Negative. CONCLUSION: 1. There is no evidence of superficial or deep vein thrombus. Dictated by: Lisa Barker MD on 11/27/2024 at 9:37 Approved by: Lisa Barker MD on 11/27/2024 at 9:38 Normal [facility] APTTon 11-26-2024 aPTT Coag (Bld) [Time] 45.7 s High 25.4 - 38.4 J [facility] Comment on above: Performed By: #### [id number] #### [facility],[address] [place] [address] [id number] D-DIMER, QUANTITATIVEon 11-13 D-DIMER QUANT <200 Normal 0 - 230 [facility] Comment on above: Performed By: #### [id number] #### [facility],[address] [place] [address] 12648 D-DIMER, QUANTITATIVE Normal [facility] Comment on above: Result Comment: VADIM T D-DIMER Performed By: #### [id number] #### [facility],[address] [place] [address] ED MED ADMINISTRATION DETAIL on 11-26-2024 ED MED ADMINISTRATION DETAIL 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 Given (Tylenol) PO 650 Allergies verified and confirmed 5 rights. Information 21:59 11/25/2024 mg (NOW x1) reviewed with patient including reason for taking this Bandar Roberto, R.N. medication. Verbalizes understanding. - 21:59 Bandar Roberto, Scanned R.N. 1 of 1 Normal [facility] ED NURSES CLINICAL NOTEon ED NURSES CLINICAL NOTE Nurse Narrative - LYNDSAY LOPEZ, : 1980, , Nurse Clinical Narrative [address] [address] [id number] 11/25/2024 20:48:00 Patient: LYNDSAY LOPEZ Sex: Male : 1980 Age: 44y Disposition: Discharge to Home Disposition Decision Time: 01:38 11/26/2024 Departure Time: 01:42 11/26/2024 TRIAGE Acuity: LEVEL 3. Chief Complaint: SKIN LESION and POSSIBLE INSECT BITE . area of ecchymosis, pain and swelling since Monday evening. 19:13 11/25/24. Alert. No acute distress. Reported as (right posterior lower extremity above the calf into the posterior popliteal fossa). It is described as mildly itchy and painful. The patient has had itching- resolved since initially noticed the area of redness. No fever, muscle aches or headache. Treatment BACK PANEL PADDER: None. SEPSIS SCREEN: NEGATIVE. SIRS criteria negative. No possible sources of infection. -- 21:11/25/24 EDT Norma High R.N. Arrived by private vehicle. Historian: (patient). Triage time: 20:59 11/25/2024. -- 20:59 11/25/24 EDT Norma High R.N. 21:11/25/24. BP: 151/93 MAP: 112. HR: 95. RR: 16. O2 saturation: 96% on room air. Temperature: 98.3 F (oral). Pain level now 3/10. Describes the pain as throbbing. -- 21:11/25/24 EDT Norma High R.N. Nurse Narrative - LYNDASY LOPEZ, : 1980, , Measurements: 21:11/25/24 Wt: 122.5 kg, Ht/Hernando: 68.0 in, BMI: 41.05 -- 21:11/25/24 EDT Norma High R.N. Medications: Adempas 2.5 mg tablet -- 21:11/25/24 EDT Norma High R.N. Adempas 2.5 mg tablet -- 21:11/25/24 EDT Norma High R.N.Updated through eRx -- 21:11/25/24 EDT Norma High R.N. Adempas 2.5 mg tablet -- 21:11/25/24 EDT Norma High R.N.Updated through eRx -- 21:11/25/24 EDT Norma High R.N. Adempas 2.5 mg tablet -- 21:11/25/24 EDT Norma High R.N.Updated through eRx -- 21:22 11/25/24 EDT Norma High R.N. Adempas 2.5 mg tablet -- 21:11/25/24 EDT Norma High R.N.Updated through eRx -- 21:22 11/25/24 EDT Norma High R.N. Adempas 2.5 mg tablet -- 21:11 11/25/24 EDT Norma High R.N.Updated through eRx -- 21:22 11/25/24 EDT Norma High R.N. Adempas 2.5 mg tablet -- 21:11 11/25/24 EDT Norma High R.N.Updated through eRx -- 21:22 11/25/24 EDT Norma High R.N. Adempas 2.5 mg tablet -- 21:11 11/25/24 EDT Norma High R.N.Updated through eRx -- 21:22 11/25/24 EDT Norma High R.N. Adempas 2.5 mg tablet -- 21:11 11/25/24 EDT Norma High R.N.Updated through eRx -- 21:22 11/25/24 EDT Norma High R.N. Adempas 2.5 mg tablet -- 21:11 11/25/24 EDT Norma High R.N.Updated through eRx -- 21:22 11/25/24 EDT Norma High R.N. Adempas 2.5 mg tablet -- 21:11 11/25/24 EDT Norma High R.N.Updated through eRx -- 21:22 11/25/24 EDT Norma High R.N. Adempas 2.5 mg tablet -- 21:11 11/25/24 EDT Norma High R.N.Updated through eRx -- 21:22 11/25/24 EDT Norma High R.N. Adempas 2.5 mg tablet -- 21:11 11/25/24 EDT Norma High R.N.Updated through eRx -- 21:22 11/25/24 EDT Norma High R.N. Adempas 2.5 mg tablet -- 21:11 11/25/24 EDT Norma High R.N.Updated through eRx -- 21:22 11/25/24 EDT Norma High R.N. Adempas 2.5 mg tablet -- 21:11 11/25/24 EDT Norma High R.N.Updated through eRx -- 21:22 11/25/24 EDT Norma High R.N. Adempas 2.5 mg tablet -- 21:11 11/25/24 EDT Norma High R.N.Updated through eRx -- 21:22 11/25/24 EDT Norma High R.N. Adempas 2.5 mg tablet -- 21:11 11/25/24 EDT Norma High R.N.Updated through eRx -- 21:22 11/25/24 EDT Norma High R.N. Nurse Enma - LYNDSAY LOPEZ, : 1980, , Adempas 2.5 mg tablet -- 21:11 11/25/24 EDT Norma High R.N.Updated through eRx -- 21:22 11/25/24 EDT Norma High R.N. Adempas 2.5 mg tablet -- 21:11/25/24 EDT Norma High R.N.Updated through eRx -- 21:22 11/25/24 EDT Norma High R.N. Adempas 2.5 mg tablet -- 21:11/25/24 EDT Norma High R.N.Updated through eRx -- 21:22 11/25/24 EDT Norma High R.N. Adempas 2.5 mg tablet -- 21:11/25/24 EDT Norma High R.N.Updated through eRx -- 21:22 11/25/24 EDT Norma High R.N. Adempas 2.5 mg tablet -- 21:11/25/24 EDT Norma High R.N.Updated through eRx -- 21:22 11/25/24 EDT Norma High R.N. Adempas 2.5 mg tablet -- 21:11 11/25/24 EDT Norma High R.N.Updated through eRx -- 21:22 11/25/24 EDT Norma High R.N. Adempas 2.5 mg tablet -- 21:11 11/25/24 EDT Norma High R.N.Updated through eRx -- 21:22 11/25/24 EDT Norma High R.N. Adempas 2.5 mg tablet -- 21:11 11/25/24 EDT Norma High R.N.Updated through eRx -- 21:22 11/25/24 EDT Norma High R.N. Adempas 2.5 mg tablet -- 21:11 11/25/24 EDT Norma Nicole (more content not included)... Normal [facility] ED ORDER SHEET (CPOE ONLY)on 11-26-2024 ED ORDER SHEET (CPOE ONLY) Order Sheet - LYNDSAY LOPEZ, : 1980, , Order Sheet [address] [address] [id number] 11/25/2024 Patient: LYNDSAY LOPEZ Sex: Male : 1980 Age: 44y MEASUREMENTS: Wt: 122.5 kg, Ht/Hernando: 68.0 in, BMI: 41.05 ALLERGIES: Penicillins MEDICATION/IV/DRIP/FLUI D ORDERS Acknowledge Order Description Priority Entered d Completed Acetaminophen (Tylenol) 21:48 11/25/2024 21:50 21:59 PO650 mg (NOW x1) Sourav Bradford D.O. 11/25/2024 11/25/2024 Bandar Trinidad R.N. R.N. Reason for ordering with Clinical consideration given --21:48 11/25/2024 Sourav alerts: Davie Bradford LAB ORDERS Acknowledge Order Description Priority Entered d Collected Completed D-Dimer Stat Stat 21:48 21:50 22:06 11/25/2024 11/25/2024 11/25/2024 Bandar Ching R.N. Seth Lapp, R.N. D.O. PT with INR Stat Stat 21:48 21:50 22:06 11/25/2024 11/25/2024 11/25/2024 1 of 2 Order Sheet - LYNDSAY LOPEZ, : 1980, , Bandar Ching R.N. Seth Lapp, R.N. D.O. PTT Stat Stat 21:48 21:50 22:06 11/25/2024 11/25/2024 11/25/2024 Bandar Ching R.N. Seth Lapp, R.N. D.O. DIAGNOSTIC STUDY ORDERS Acknowledge Order Description Priority Entered d Completed STAFF ORDERS Acknowledge Order Description Priority Entered d Collected Completed [Electronically signed by Sourav Bradford D.O. (11/26/2024 02:08 EDT)] 2 of 2 Normal [facility] ED PHYSICIAN CLINICAL REPORT on 11-26-2024 ED PHYSICIAN CLINICAL REPORT Narrative - LYNDSAY LOPEZ : 1980, , Physician Clinical Narrative [address] [address] [id number] 11/25/2024 20:48:00 Patient: LYNDSAY LOPEZ Sex: Male : 1980 Age: 44y Disposition: Discharge to Home Disposition Decision Time: 01:38 11/26/2024 Measurements Wt: 122.5 kg, Ht/Hernando: 68.0 in, BMI: 41.05 Initial Vital Sign Measured Lamonte Time BP MAP HR RR O2Sat ETCO2 Temp n GCS RTS 21:09 151/93 112 95 16 96% RA 98.3 F 3 11/25/2024 Time Seen: 21:34 11/25/2024. Arrived- By private vehicle. Historian- patient. HISTORY OF PRESENT ILLNESS Chief Complaint: LOWER EXTREMITY PAIN and SWELLING. Symptoms located in the area of the right leg. Additional history - ( Patient presents chief complaint of right lower extremity pain and swelling. Patient has a history of pulmonary embolism and is currently on warfarin. The patient states that he missed his doses of warfarin on 11-22 and 11-23. He states that on 11 he began to notice a tender spot on his posterior right calf approximately 3 inches inferior to the right popliteal fossa. Patient cannot recur any injury or inciting event. She states it may be a spider bite but cannot recall any recent bites or exposures. Pain worsened throughout the weekend and is accompanied by erythema and bruising around the site. He describes dull aching pain that is intermittent and worsened with activity especially walking. No relieving factors noted. 1 of 8 Enma - LYNDSAY LOPEZ DOB: 1980, , Denies fevers chills chest pain shortness of breath nausea or vomiting). REVIEW OF SYSTEMS Focused review of systems was performed. Pertinent positive and negative features per HPI. 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 Stopped 11/25/2024. Adempas 2.5 mg tablet: Stopped 11/25/2024. Adempas 2.5 mg tablet: Stopped 11/25/2024. Adempas 2.5 mg tablet: Stopped 11/25/2024. Adempas 2.5 mg tablet: Stopped 11/25/2024. Adempas 2.5 mg tablet: Stopped 11/25/2024. Adempas 2.5 mg tablet: Stopped 11/25/2024. Adempas 2.5 mg tablet: Stopped 11/25/2024. Adempas 2.5 mg tablet: Stopped 11/25/2024. Adempas 2.5 mg tablet: Stopped 11/25/2024. Adempas 2.5 mg tablet: Stopped 11/25/2024. Adempas 2.5 mg tablet: Stopped 11/25/2024. Adempas 2.5 mg tablet: Stopped 11/25/2024. Adempas 2.5 mg tablet: Stopped 11/25/2024. Adempas 2.5 mg tablet: Stopped 11/25/2024. Adempas 2.5 mg tablet: Stopped 11/25/2024. 2 of 8 Enma - LYNDSAY LOPEZ DOB: 1980, , Adempas 2.5 mg tablet: Stopped 11/25/2024. Adempas 2.5 mg tablet: Stopped 11/25/2024. Adempas 2.5 mg tablet: Stopped 11/25/2024. Adempas 2.5 mg tablet: Stopped 11/25/2024. Adempas 2.5 mg tablet: Stopped 11/25/2024. Adempas 2.5 mg tablet: Stopped 11/25/2024. Adempas 2.5 mg tablet: Stopped 11/25/2024. Adempas 2.5 mg tablet: Stopped 11/25/2024. Adempas 2.5 mg tablet: Stopped 11/25/2024. Adempas 2.5 mg tablet: Stopped 11/25/2024. Adempas 2.5 mg tablet: Stopped 11/25/2024. Adempas 2.5 mg tablet: Stopped 11/25/2024. Adempas 2.5 mg tablet: Stopped 11/25/2024. Adempas 2.5 mg tablet: Stopped 11/25/2024. Adempas 2.5 mg tablet: Stopped 11/25/2024. Adempas 2.5 mg tablet: Stopped 11/25/2024. Adempas 2.5 mg tablet: Stopped 11/25/2024. Adempas 2.5 mg tablet: Stopped 11/25/2024. Adempas 2.5 mg tablet: Stopped 11/25/2024. Adempas 2.5 mg tablet: Stopped 11/25/2024. Adempas 2.5 mg tablet: Stopped 11/25/2024. Adempas 2.5 mg tablet: Stopped 11/25/2024. Adempas 2.5 mg tablet: Stopped 11/25/2024. Adempas 2.5 mg tablet: Stopped 11/25/2024. Adempas 2.5 mg tablet: Stopped 11/25/2024. Adempas 2.5 mg tablet: Stopped 11/25/2024. Adempas 2.5 mg tablet: Stopped 11/25/2024. Adempas 2.5 mg tablet: Stopped 11/25/2024. Adempas 2.5 mg tablet: Stopped 11/25/2024. Adempas 2.5 mg tablet: Stopped 11/25/2024. Adempas 2.5 mg tablet: Stopped 11/25/2024. Adempas 2.5 mg tablet: Stopped 11/25/2024. Adempas 2.5 mg tablet: Stopped 11/25/2024. Adempas 2.5 mg tablet: Stopped 11/25/2024. Adempas 2.5 mg tablet: Stopped 11/25/2024. Adempas 2.5 mg tablet: Stopped 11/25/2024. Adempas 2.5 mg tablet: Stopped 11/25/2024. Adempas 2.5 mg tablet: Stopped 11/25/2024. Adempas 2.5 mg tablet: Stopped 11/25/2024. 3 of 8 Narrative - LYNDSAY LOPEZ, : 1980, , Adempas 2.5 mg tablet: Stopped 11/25/2024. Adempas 2.5 mg tablet: Stopped 11/25/2024. Adempas 2.5 mg tablet: Stopped 11/25/2024. Adempas 2.5 mg tablet: Stopped (more content not included)... Normal [facility] ED SUPER BILLon 11-26-2024 ED [facility] LYNDSAY Haskins, : 1980, , [address] [address] [id number] 11/25/2024 Patient: LYNDSAY LOPEZ Sex: Male : 1980 Age: 44y Item Facility Profession Category Description Code al Code Quantity Fee Total Nurse/E/M EMERGENCY 774002 1 $0.00 $0.00 DEPARTMEN T VISIT MODERATE SEVERITY (99091-16) Grand Total $0.00 Providers Sourav Bradford D.O. Chief Complaint LOWER EXTREMITY PAIN and SWELLING. Principal Diagnosis Acute right lower leg pain. ICD-10 Codes 1 of 2 LYNDSAY Haskins, : 1980, , M79.661: Pain in right lower leg 2 of 2 Normal [facility] ED VISIT SUMMARYon ED VISIT SUMMARY Visit Overview - LYNDSAY DUFFY : 1980, , [place] [address] [id number] 11/25/2024 Patient: LYNDSAY LOPEZ Sex: Male : 1980 Age: 44y 11/26/2024 02:23 AM EDT ED Arrival:20:48 11/25/2024 Status: Recent Travel:no EDT Language:eng Adv Directive:No Isolation Status: Infectious Disease Ethnicity:N Fall Risk:no risk Exposure:no Measurements:5'8" / 172.7 Self-Harm Status:risk Sepsis Screen:negative cm 270.0 lb / 122.5 kg Chief Complaint:POSSIBLE INSECT BITE, SKIN LESION, (area of ecchymosis, pain and swelling since Monday evening), (resolved since initially noticed the area of redness), and (right posterior lower extremity above the calf into the posterior popliteal fossa) ALLERGIES 1 of 6 Visit Overview - LYNDSAY LOPEZ, : 1980, , Penicillins HOME MEDICATIONS Adempas 2.5 mg tablet Adempas 2.5 mg tablet: Stopped 11/25/2024. Adempas 2.5 mg tablet: Stopped 11/25/2024. Adempas 2.5 mg tablet: Stopped 11/25/2024. Adempas 2.5 mg tablet: Stopped 11/25/2024. Adempas 2.5 mg tablet: Stopped 11/25/2024. Adempas 2.5 mg tablet: Stopped 11/25/2024. Adempas 2.5 mg tablet: Stopped 11/25/2024. Adempas 2.5 mg tablet: Stopped 11/25/2024. Adempas 2.5 mg tablet: Stopped 11/25/2024. Adempas 2.5 mg tablet: Stopped 11/25/2024. Adempas 2.5 mg tablet: Stopped 11/25/2024. Adempas 2.5 mg tablet: Stopped 11/25/2024. Adempas 2.5 mg tablet: Stopped 11/25/2024. Adempas 2.5 mg tablet: Stopped 11/25/2024. Adempas 2.5 mg tablet: Stopped 11/25/2024. Adempas 2.5 mg tablet: Stopped 11/25/2024. Adempas 2.5 mg tablet: Stopped 11/25/2024. Adempas 2.5 mg tablet: Stopped 11/25/2024. Adempas 2.5 mg tablet: Stopped 11/25/2024. Adempas 2.5 mg tablet: Stopped 11/25/2024. Adempas 2.5 mg tablet: Stopped 11/25/2024. Adempas 2.5 mg tablet: Stopped 11/25/2024. Adempas 2.5 mg tablet: Stopped 11/25/2024. Adempas 2.5 mg tablet: Stopped 11/25/2024. Adempas 2.5 mg tablet: Stopped 11/25/2024. Adempas 2.5 mg tablet: Stopped 11/25/2024. Adempas 2.5 mg tablet: Stopped 11/25/2024. Adempas 2.5 mg tablet: Stopped 11/25/2024. Adempas 2.5 mg tablet: Stopped 11/25/2024. Adempas 2.5 mg tablet: Stopped 11/25/2024. Adempas 2.5 mg tablet: Stopped 11/25/2024. Adempas 2.5 mg tablet: Stopped 11/25/2024. Adempas 2.5 mg tablet: Stopped 11/25/2024. Adempas 2.5 mg tablet: Stopped 11/25/2024. 2 of 6 Visit Overview - LYNDSAY LOPEZ DOB: 1980, , Adempas 2.5 mg tablet: Stopped 11/25/2024. Adempas 2.5 mg tablet: Stopped 11/25/2024. Adempas 2.5 mg tablet: Stopped 11/25/2024. Adempas 2.5 mg tablet: Stopped 11/25/2024. Adempas 2.5 mg tablet: Stopped 11/25/2024. Adempas 2.5 mg tablet: Stopped 11/25/2024. Adempas 2.5 mg tablet: Stopped 11/25/2024. Adempas 2.5 mg tablet: Stopped 11/25/2024. Adempas 2.5 mg tablet: Stopped 11/25/2024. Adempas 2.5 mg tablet: Stopped 11/25/2024. Adempas 2.5 mg tablet: Stopped 11/25/2024. Adempas 2.5 mg tablet: Stopped 11/25/2024. Adempas 2.5 mg tablet: Stopped 11/25/2024. Adempas 2.5 mg tablet: Stopped 11/25/2024. Adempas 2.5 mg tablet: Stopped 11/25/2024. Adempas 2.5 mg tablet: Stopped 11/25/2024. Adempas 2.5 mg tablet: Stopped 11/25/2024. Adempas 2.5 mg tablet: Stopped 11/25/2024. Adempas 2.5 mg tablet: Stopped 11/25/2024. Adempas 2.5 mg tablet: Stopped 11/25/2024. Adempas 2.5 mg tablet: Stopped 11/25/2024. Adempas 2.5 mg tablet: Stopped 11/25/2024. Adempas 2.5 mg tablet: Stopped 11/25/2024. Adempas 2.5 mg tablet: Stopped 11/25/2024. Adempas 2.5 mg tablet: Stopped 11/25/2024. Adempas 2.5 mg tablet: Stopped 11/25/2024. Adempas 2.5 mg tablet: Stopped 11/25/2024. Adempas 2.5 mg tablet: Stopped 11/25/2024. Adempas 2.5 mg tablet: Stopped 11/25/2024. Adempas 2.5 mg tablet: Stopped 11/25/2024. Adempas 2.5 mg tablet: Stopped 11/25/2024. Adempas 2.5 mg tablet: Stopped 11/25/2024. Adempas 2.5 mg tablet: Stopped 11/25/2024. Adempas 2.5 mg tablet: Stopped 11/25/2024. Adempas 2.5 mg tablet: Stopped 11/25/2024. Adempas 2.5 mg tablet: Stopped 11/25/2024. Adempas 2.5 mg tablet: Stopped 11/25/2024. Adempas 2.5 mg tablet: Stopped 11/25/2024. 3 of 6 Visit Overview - LYNDSAY LOPEZ, : 1980, , Adempas 2.5 mg tablet: Stopped 11/25/2024. Adempas 2.5 mg tablet: Stopped 11/25/2024. Adempas 2.5 mg tablet: Stopped 11/25/2024. Adempas 2.5 mg tablet: Stopped 11/25/2024. Adempas 2.5 mg tablet: Stopped 11/25/2024. Adempas 2.5 mg tablet: Stopped 11/25/2024. Adempas 2.5 mg tablet: Stopped 11/25/2024. Adempas 2.5 mg tablet: Stopped 11/25/2024. Adempas 2.5 mg tablet: Stopped 11/25/2024. Adempas 2.5 mg tablet: Stopped 11/25/2024. Adempas 2.5 mg tablet: Stopped 11/25/2024. Adempas 2. (more content not included)... Normal [facility] ED VITALS FLOW SHEETon 11-26 ED VITALS FLOW SHEET Vitals - BHAVNA LOPEZ ELIJAH, : 1980, , Vital Sign Flow Sheet [place] [id number] [place] [address] [id number] 11/25/2024 Patient: LYNDSAY LOPEZ Sex: Male : 1980 Age: 44y Measurements Wt: 122.5 kg, Ht/Hernando: 68.0 in, BMI: 41.05 Measured Lamonte Time BP MAP HR RR O2Sat ETCO2 Temp n GCS RTS 01:22 134/70 91 68 18 98% 11/26/2024 21:09 151/93 112 95 16 96% RA 98.3 F 3 11/25/2024 1 of 1 Normal [facility] PROTHROMBIN TIME AND INRon 1 INR Coag (PPP) [Relative time] 2.8 {INR} High 0.8 - 1.2 [facility] Comment on above: Result Comment: T HE HEMOSIL THROMBOPLASTIN REAGENT USED IN THE PROTHROMBIN TIME TEST INTERACTS WITH THE DRUG CUBICIN (DAPTOMYCIN) AND WILL RESULT IN FALSELY ELEVATED PT / INR RESULTS INR INTERPRETATION INR INDICATION PREVENTION AND TREATMENT OF THROMBOEMBOLISM ASSOCIATED WITH: 2.0 - 3.0 ATRIAL FIBRILLATION, BIOPROSTHETIC HEART VALVES, PULMONARY EMBOLISM, VENOUS THROMBOSIS, SYSTEMIC EMBOLISM POST MYOCARDIAL INFARCTION 2.5 - 3.5 MECHANICAL HEART VALVES Performed By: #### [id number] #### [facility],[address] [place] [address] PROTHROMBIN TIME AND INR Normal [facility] Comment on above: Result Comment: PROT HROMBIN TIME AND INR Performed By: #### [id number] #### [facility],[address] [place] [address] PT-COUMADIN 30.2 sec High 9.3 - 14.1 [facility] Comment on above: Performed By: #### [id number] #### [facility],[address] [place], [place] [id number] .Auto Diffon 11-19-2024 Basophil, Absolute 0.1 10 3/mcL Normal 0.0-0.3 [facility] Comment on above: Performed By: #### T SH, FT3, JUANCARLOS, LD, FT4, ADIFF, GFR, ANEU, CBC, CMP #### [address] [address] Basophils/100 WBC (Bld) 0.7 % Normal 0.0-2.5 [facility] Comment on above: Performed By: #### T SH, FT3, JUANCARLOS, LD, FT4, ADIFF, GFR, ANEU, CBC, CMP #### [address] [address] Eosinophil, Absolute 0.7 10 3/mcL Normal 0.0-0.7 [facility] Comment on above: Performed By: #### T SH, FT3, JUANCARLOS, LD, FT4, ADIFF, GFR, ANEU, CBC, CMP #### [address] [address] Eosinophils/100 WBC (Bld) 8.4 % High 0.0-6.0 [facility] Comment on above: Performed By: #### T SH, FT3, JUANCARLOS, LD, FT4, ADIFF, GFR, ANEU, CBC, CMP #### [address] [address] Lymphocyte, Absolute 2.0 10 3/mcL Normal 0.9-4.3 [facility] Comment on above: Performed By: #### T SH, FT3, JUANCARLOS, LD, FT4, ADIFF, GFR, ANEU, CBC, CMP #### [address] [address] Lymphocytes/100 WBC (Bld) 24.2 % Normal 20.0-40.0 [facility] Comment on above: Performed By: #### T SH, FT3, JUANCARLOS, LD, FT4, ADIFF, GFR, ANEU, CBC, CMP #### [address] [address] Monocyte, Absolute 0.7 10 3/mcL Normal 0.1-1.4 [facility] Comment on above: Performed By: #### T SH, FT3, JUANCARLOS, LD, FT4, ADIFF, GFR, ANEU, CBC, CMP #### [address] [address] Monocytes/100 WBC (Bld) 8.2 % Normal 2.0-13.0 [facility] Comment on above: Performed By: #### T SH, FT3, JUANCARLOS, LD, FT4, ADIFF, GFR, ANEU, CBC, CMP #### [address] [address] Neutrophils/100 WBC (Bld) 58.5 % Normal 50.0-75.0 [facility] Comment on above: Performed By: #### T SH, FT3, JUANCARLOS, LD, FT4, ADIFF, GFR, ANEU, CBC, CMP #### [place] [address] .GFRon 11-19-2024 Estimated Glomerular Filtration Rate 79 ml/min/1.73sqm Normal [facility] Comment on above: Result Comment: Stages of Chronic Kidney Disease (CKD) Stage Description eGFR(ml/min/1.73 sq.m.) CKD 1 Normal kidney function or >=90 normal kindney function with possible kidney damage (ex. Proteinuria) CKD 2 Kidney damage with mild loss 60-89 of kidney function CKD 3a Mild to moderate loss of kidney 45-59 function CKD 3b Moderate to severe loss of 30-44 of kindey function CKD 4 Severe loss of kidney function 15-29 CKD 5 Kidney failure <15 Note: (go live 2024) the eGFR calculation was updated to the 2020 CKD-EPI creatinine equation without a race factor to calculate the eGFR results. Performed By: #### T SH, FT3, JUANCARLOS, LD, FT4, ADIFF, GFR, ANEU, CBC, CMP #### [place] [address] .NEUABSon 11-19-2024 Neutrophil, Absolute 4.9 10 3/mcL Normal 2.3-8.1 [facility] Comment on above: Performed By: #### T SH, FT3, JUANCARLOS, LD, FT4, ADIFF, GFR, ANEU, CBC, CMP #### [place] [address] CBCon 11-19-2024 Erythrocyte distribution width (RBC) [Ratio] 18.1 % High 11.5-15.5 [facility] Comment on above: Performed By: #### T SH, FT3, JUANCARLOS, LD, FT4, ADIFF, GFR, ANEU, CBC, CMP #### [place] [address] Hematocrit (Bld) [Volume fraction] 44.2 % Normal 40.0-52.0 [facility] Comment on above: Performed By: #### T SH, FT3, JUANCARLOS, LD, FT4, ADIFF, GFR, ANEU, CBC, CMP #### [place] [address] Hgb 14.3 G/dL Normal 13.0-17.5 [facility] Comment on above: Performed By: #### T SH, FT3, JUANCARLOS, LD, FT4, ADIFF, GFR, ANEU, CBC, CMP #### [place] [id number] MCH (RBC) [Entitic mass] 27.5 pg Normal 27.0-33.0 [facility] Comment on above: Performed By: #### T SH, FT3, JUANCARLOS, LD, FT4, ADIFF, GFR, ANEU, CBC, CMP #### [place] [id number] MCHC 32.5 G/dL Normal 32.0-36.0 [facility] Comment on above: Performed By: #### T SH, FT3, JUANCARLOS, LD, FT4, ADIFF, GFR, ANEU, CBC, CMP #### [place] [address] MCV (RBC) [Entitic vol] 84.7 fL Normal 81.0-100.0 [facility] Comment on above: Performed By: #### T SH, FT3, JUANCARLOS, LD, FT4, ADIFF, GFR, ANEU, CBC, CMP #### [place] [address] Platelet 268 10 3/mcL Normal 150-450 [facility] Comment on above: Performed By: #### T SH, FT3, JUANCARLOS, LD, FT4, ADIFF, GFR, ANEU, CBC, CMP #### [place] [address] Platelet mean volume (Bld) [Entitic vol] 7.5 fL Normal 6.4-10.5 [facility] Comment on above: Performed By: #### T SH, FT3, JUANCARLOS, LD, FT4, ADIFF, GFR, ANEU, CBC, CMP #### [place] [address] RBC 5.21 10 6/mcL Normal 4.50-6.00 [facility] Comment on above: Performed By: #### T SH, FT3, JUANCARLOS, LD, FT4, ADIFF, GFR, ANEU, CBC, CMP #### [place] [address] WBC 8.3 10 3/mcL Normal 4.5-10.8 [facility] Comment on above: Performed By: #### T SH, FT3, JUANCARLOS, LD, FT4, ADIFF, GFR, ANEU, CBC, CMP #### [place] [address] CMPon 11-19-2024 Albumin Level 3.4 G/dL Normal 3.2-4.8 [facility] Comment on above: Performed By: #### T SH, FT3, JUANCARLOS, LD, FT4, ADIFF, GFR, ANEU, CBC, CMP #### [place] [address] Albumin/Globulin [Mass ratio] 1.1 {ratio} Normal 0.9-1.6 [facility] Comment on above: Performed By: #### T SH, FT3, JUANCARLOS, LD, FT4, ADIFF, GFR, ANEU, CBC, CMP #### [address] [address] ALP [Catalytic activity/Vol] 82 U/L Normal 38-126 [facility] Comment on above: Performed By: #### T SH, FT3, JUANCARLOS, LD, FT4, ADIFF, GFR, ANEU, CBC, CMP #### [place] [id number] ALT [Catalytic activity/Vol] 16 U/L Normal 12-55 [facility] Comment on above: Performed By: #### T SH, FT3, JUANCARLOS, LD, FT4, ADIFF, GFR, ANEU, CBC, CMP #### [place] [id number] AST [Catalytic activity/Vol] 17 U/L Normal 8-34 [facility] Comment on above: Performed By: #### T SH, FT3, JUANCARLOS, LD, FT4, ADIFF, GFR, ANEU, CBC, CMP #### [address] [address] Bili Total 0.30 mg/dL Normal 0.20-1.20 [facility] Comment on above: Result Comment: Use of this assay is not recommended for patients undergoing treatment with eltrombopag due to the potential for falsely elevated results. Performed By: #### T SH, FT3, JUANCARLOS, LD, FT4, ADIFF, GFR, ANEU, CBC, CMP #### [place] [id number] BUN/Creatinine Ratio 8.6 ratio Low 10.0-22.0 [facility] Comment on above: Performed By: #### T SH, FT3, JUANCARLOS, LD, FT4, ADIFF, GFR, ANEU, CBC, CMP #### [place] [address] Calcium [Mass/Vol] 8.3 mg/dL Low 8.7-10.4 [facility] Comment on above: Performed By: #### T SH, FT3, JUANCARLOS, LD, FT4, ADIFF, GFR, ANEU, CBC, CMP #### [address] [address] Chloride [Moles/Vol] 108 mmol/L Normal 98-110 [facility] Comment on above: Performed By: #### T SH, FT3, JUANCARLOS, LD, FT4, ADIFF, GFR, ANEU, CBC, CMP #### [address] [address] CO2 [Moles/Vol] 23 mmol/L Normal 22-32 [facility] Comment on above: Performed By: #### T SH, FT3, JUANCARLOS, LD, FT4, ADIFF, GFR, ANEU, CBC, CMP #### [address] [address] Creatinine [Mass/Vol] 1.16 mg/dL Normal 0.60-1.40 [facility] Comment on above: Result Comment: Test ing performed on [employer] analyzer using enzymatic creatinine methodology. Performed By: #### T SH, FT3, JUANCARLOS, LD, FT4, ADIFF, GFR, ANEU, CBC, CMP #### [address] [address] Electrolyte Balance 10.0 mEq/L Normal 4.0-15.0 [facility] Comment on above: Performed By: #### T SH, FT3, JUANCARLOS, LD, FT4, ADIFF, GFR, ANEU, CBC, CMP #### [address] [address] Globulin 3.2 G/dL Normal 2.5-4.2 [facility] Comment on above: Performed By: #### T SH, FT3, JUANCARLOS, LD, FT4, ADIFF, GFR, ANEU, CBC, CMP #### [place] [id number] Glucose [Mass/Vol] 81 mg/dL Normal 70-110 [facility] Comment on above: Performed By: #### T SH, FT3, JUANCARLOS, LD, FT4, ADIFF, GFR, ANEU, CBC, CMP #### [address] [address] Potassium [Moles/Vol] 4.1 mmol/L Normal 3.5-5.0 [facility] Comment on above: Performed By: #### T SH, FT3, JUANCARLOS, LD, FT4, ADIFF, GFR, ANEU, CBC, CMP #### [place] [id number] Sodium [Moles/Vol] 141 mmol/L Normal 136-145 [facility] Comment on above: Performed By: #### T SH, FT3, JUANCARLOS, LD, FT4, ADIFF, GFR, ANEU, CBC, CMP #### [address] [address] Total Protein 6.6 G/dL Normal 5.7-8.2 [facility] Comment on above: Performed By: #### T SH, FT3, JUANCARLOS, LD, FT4, ADIFF, GFR, ANEU, CBC, CMP #### [address] [address] Urea nitrogen [Mass/Vol] 10.0 mg/dL Normal 8.0-22.0 [facility] Comment on above: Performed By: #### T SH, FT3, JUANCARLOS, LD, FT4, ADIFF, GFR, ANEU, CBC, CMP #### [place] [address] CORTon 11-19-2024 Cortisol Level 12.1 mcg/dL Normal [facility] Comment on above: Result Comment: Juancarlos isol AM Reference Range 6.5-26.0 mcg/dL Cortisol PM Reference Range 3.5-15.0 mcg/dL Performed By: #### T SH, FT3, JUANCARLOS, LD, FT4, ADIFF, GFR, ANEU, CBC, CMP #### [place] [address] FT3on 11-19-2024 Free T3 [Mass/Vol] 3.49 pg/mL Normal 2.30-4.20 [facility] Comment on above: Performed By: #### T SH, FT3, JUANCARLOS, LD, FT4, ADIFF, GFR, ANEU, CBC, CMP #### [place] [address] FT4on 11-19-2024 Free T4 [Mass/Vol] 1.56 ng/dL Normal 0.89-1.76 [facility] Comment on above: Result Comment: No te - New Reference Range in effect 19 Performed By: #### T SH, FT3, JUANCARLOS, LD, FT4, ADIFF, GFR, ANEU, CBC, CMP #### [place] [address] LABORATORYOrdered By: SYSTEM SYSTEM on 11-19-2024 Albumin BCP dye [Mass/Vol] 3.4 G/dL Normal 3.2 - 4.8 G/dL ADM SS Albumin/Globulin [Mass ratio] 1.1 {ratio} Normal 0.9 - 1.6 ratio AH ADM SS ALP [Catalytic activity/Vol] 82 U/L Normal 38 - 126 U/L ADM SS ALT No additional P-5'-P [Catalytic activity/Vol] 16 U/L Normal 12 - 55 U/L ADM SS AST [Catalytic activity/Vol] 17 U/L Normal 8 - 34 U/L ADM SS Basophils (Bld) [#/Vol] 0.1 103/mcL Normal 0.0 - 0.3 10^3/mcL Workflow SS Basophils/100 WBC (Bld) 0.7 % Normal 0.0 - 2.5 % Workflow SS Bilirubin [Mass/Vol] 0.30 mg/dL Normal 0.20 - 1.20 mg/dL ADM SS Comment on above: Interpretive Data: U se of this assay is not recommended for patients undergoing treatment with eltrombopag due to the potential for falsely elevated results. Calcium [Mass/Vol] 8.3 mg/dL Low 8.7 - 10. 4 mg/dL ADM SS Chloride [Moles/Vol] 108 mmol/L Normal 98 - 11 0 mEq/L ADM SS CO2 [Moles/Vol] 23 mmol/L Normal 22 - 32 mEq/L ADM SS Cortisol [Mass/Vol] 12.1 ug/dL Invalid Interpretation Code ADM SS Comment on above: Interpretive Data: C ortisol AM Reference Range 6.5-26.0 mcg/dL Cortisol PM Reference Range 3.5-15.0 mcg/dL Creatinine [Mass/Vol] 1.16 mg/dL Normal 0.60 - 1.40 mg/dL ADM Comment on above: Interpretive Data: T esting performed on [employer] analyzer using enzymatic creatinine methodology. Electrolyte Balance 10.0 mEq/L Normal 4.0 - 15 .0 mEq/L ADM SS Eosinophils (Bld) [#/Vol] 0.7 103/mcL Normal 0.0 - 0.7 10^3/mcL Workflow SS Eosinophils/100 WBC (Bld) 8.4 % High 0.0 - 6.0 % Workflow SS Erythrocyte distribution width (RBC) [Ratio] 18.1 % High 11.5 - 15.5 % Workflow SS Free T3 [Mass/Vol] 3.49 pg/mL Normal 2.30 - 4. 20 pg/mL ADM SS Free T4 [Mass/Vol] 1.56 ng/dL Normal 0.89 - 1. 76 ng/dL ADM SS Comment on above: Interpretive Data: * *Note - New Reference Range in effect 19 Globulin 3.2 G/dL Normal 2.5 - 4.2 G/dL ADM GLOMERULAR FILTRATION RATE/1.73 SQ M.PREDICTED:ARVRAT:PT: SER/PLAS/BLD:QN:CREATI NINE-BASED FORMULA (CKD-EPI 2020) 79 ml/min/1.73sqm Invalid Interpretation Code ADM SS Comment on above: Interpretive Data: Stages of Chronic Kidney Disease (CKD) Stage Description eGFR(ml/min/1.73 sq.m.) CKD 1 Normal kidney function or >=90 normal kindney function with possible kidney damage (ex. Proteinuria) CKD 2 Kidney damage with mild loss 60-89 of kidney function CKD 3a Mild to moderate loss of kidney 45-59 function CKD 3b Moderate to severe loss of 30-44 of kindey function CKD 4 Severe loss of kidney function 15-29 CKD 5 Kidney failure <15 Note: (go live 2024) the eGFR calculation was updated to the 2020 CKD-EPI creatinine equation without a race factor to calculate the eGFR results. Glucose [Mass/Vol] 81 mg/dL Normal 70 - 110 mg/dL ADM SS Hematocrit (Bld) [Volume fraction] 44.2 % Normal 40.0 - 52.0 % Workflow SS Hemoglobin (Bld) [Mass/Vol] 14.3 G/dL Normal 13.0 - 17.5 G/dL Workflow SS LDH Lactate to pyruvate reaction [Catalytic activity/Vol] 188 1 Normal 120 - 246 U/L ADM SS Lymphocytes (Bld) [#/Vol] 2.0 103/mcL Normal 0.9 - 4.3 10^3/mcL AH Workflow SS Lymphocytes/100 WBC (Bld) 24.2 % Normal 20.0 - 40.0 % AH Workflow SS MCH (RBC) [Entitic mass] 27.5 pg Normal 27.0 - 33.0 pg AH Workflow SS MCHC 32.5 G/dL Normal 32.0 - 36.0 G/dL AH Workflow SS MCV (RBC) [Entitic vol] 84.7 fL Normal 81.0 - 100.0 fL Workflow SS Monocytes (Bld) [#/Vol] 0.7 103/mcL Normal 0.1 - 1.4 10^3/mcL AH Workflow SS Monocytes/100 WBC (Bld) 8.2 % Normal 2.0 - 13.0 % Workflow SS Neutrophils (Bld) [#/Vol] 4.9 103/mcL Normal 2.3 - 8.1 10^3/mcL AH Workflow SS Neutrophils/100 WBC (Bld) 58.5 % Normal 50.0 - 75.0 % Workflow SS Platelet mean volume (Bld) [Entitic vol] 7.5 fL Normal 6.4 - 10.5 fL Workflow SS Platelets (Bld) [#/Vol] 268 103/mcL Normal 150 - 450 10^3/mcL Workflow SS Potassium [Moles/Vol] 4.1 mmol/L Normal 3.5 - 5.0 mEq/L ADM SS Protein [Mass/Vol] 6.6 G/dL Normal 5.7 - 8.2 G/dL ADM SS RBC (Bld) [#/Vol] 5.21 106/mcL Normal 4.50 - 6.0 0 10^6/mcL Workflow SS Sodium [Moles/Vol] 141 mmol/L Normal 136 - 145 mEq/L ADM SS TSH Qn 1.855 mIU/mL Normal 0.550 - 4.780 mIU/mL ADM SS Urea nitrogen [Mass/Vol] 10.0 mg/dL Normal 8.0 - 22.0 mg/dL ADM SS Urea nitrogen/Creatinine [Mass ratio] 8.6 ratio Low 10.0 - 22.0 ratio ADM SS WBC (Bld) [#/Vol] 8.3 103/mcL Normal 4.5 - 10.8 10^3/mcL Workflow SS LDHon 11-19-2024 LDH 188 U/L Normal 120-246 [facility] Comment on above: Performed By: #### T SH, FT3, JUANCARLOS, LD, FT4, ADIFF, GFR, ANEU, CBC, CMP #### [place] [id number] TSHon 11-19-2024 TSH 1.855 mIU/mL Normal 0.550-4.780 [facility] Comment on above: Performed By: #### T SH, FT3, JUANCARLOS, LD, FT4, ADIFF, GFR, ANEU, CBC, CMP #### [address] [address] .Auto Diffon 10-22-2024 Basophil, Absolute 0.1 10 3/mcL Normal 0.0-0.3 [facility] Comment on above: Performed By: #### T SH, FT3, JUANCARLOS, LD, FT4, ADIFF, GFR, ANEU, CBC, CMP #### [address] [address] Basophils/100 WBC (Bld) 0.8 % Normal 0.0-2.5 [facility] Comment on above: Performed By: #### T SH, FT3, JUANCARLOS, LD, FT4, ADIFF, GFR, ANEU, CBC, CMP #### [address] [address] Eosinophil, Absolute 0.8 10 3/mcL High 0.0-0.7 [facility] Comment on above: Performed By: #### T SH, FT3, JUANCARLOS, LD, FT4, ADIFF, GFR, ANEU, CBC, CMP #### [address] [address] Eosinophils/100 WBC (Bld) 8.4 % High 0.0-6.0 [facility] Comment on above: Performed By: #### T SH, FT3, JUANCARLOS, LD, FT4, ADIFF, GFR, ANEU, CBC, CMP #### [address] [address] Lymphocyte, Absolute 1.4 10 3/mcL Normal 0.9-4.3 [facility] Comment on above: Performed By: #### T SH, FT3, JUANCARLOS, LD, FT4, ADIFF, GFR, ANEU, CBC, CMP #### [address] [address] Lymphocytes/100 WBC (Bld) 14.0 % Low 20.0-40.0 [facility] Comment on above: Performed By: #### T SH, FT3, JUANCARLOS, LD, FT4, ADIFF, GFR, ANEU, CBC, CMP #### [address] [address] Monocyte, Absolute 0.7 10 3/mcL Normal 0.1-1.4 [facility] Comment on above: Performed By: #### T SH, FT3, JUANCARLOS, LD, FT4, ADIFF, GFR, ANEU, CBC, CMP #### [address] [address] Monocytes/100 WBC (Bld) 7.4 % Normal 2.0-13.0 [facility] Comment on above: Performed By: #### T SH, FT3, JUANCARLOS, LD, FT4, ADIFF, GFR, ANEU, CBC, CMP #### [address] [address] Neutrophils/100 WBC (Bld) 69.4 % Normal 50.0-75.0 [facility] Comment on above: Performed By: #### T SH, FT3, JUANCARLOS, LD, FT4, ADIFF, GFR, ANEU, CBC, CMP #### [address] [address] .GFRon 10-22-2024 Estimated Glomerular Filtration Rate 64 ml/min/1.73sqm Normal [facility] Comment on above: Result Comment: Stages of Chronic Kidney Disease (CKD) Stage Description eGFR(ml/min/1.73 sq.m.) CKD 1 Normal kidney function or >=90 normal kindney function with possible kidney damage (ex. Proteinuria) CKD 2 Kidney damage with mild loss 60-89 of kidney function CKD 3a Mild to moderate loss of kidney 45-59 function CKD 3b Moderate to severe loss of 30-44 of kindey function CKD 4 Severe loss of kidney function 15-29 CKD 5 Kidney failure <15 Note: (go live 2024) the eGFR calculation was updated to the 2020 CKD-EPI creatinine equation without a race factor to calculate the eGFR results. Performed By: #### T SH, FT3, JUANCARLOS, LD, FT4, ADIFF, GFR, ANEU, CBC, CMP #### [address] [address] .NEUABSon 10-22-2024 Neutrophil, Absolute 6.9 10 3/mcL Normal 2.3-8.1 [facility] Comment on above: Performed By: #### T SH, FT3, JUANCARLOS, LD, FT4, ADIFF, GFR, ANEU, CBC, CMP #### [address] [address] CBCon 10-22-2024 Erythrocyte distribution width (RBC) [Ratio] 17.0 % High 11.5-15.5 [facility] Comment on above: Performed By: #### T SH, FT3, JUANCARLOS, LD, FT4, ADIFF, GFR, ANEU, CBC, CMP #### [place] [address] Hematocrit (Bld) [Volume fraction] 40.8 % Normal 40.0-52.0 [facility] Comment on above: Performed By: #### T SH, FT3, JUANCARLOS, LD, FT4, ADIFF, GFR, ANEU, CBC, CMP #### [place] [address] Hgb 13.4 G/dL Normal 13.0-17.5 [facility] Comment on above: Performed By: #### T SH, FT3, JUANCARLOS, LD, FT4, ADIFF, GFR, ANEU, CBC, CMP #### [place] [address] MCH (RBC) [Entitic mass] 28.2 pg Normal 27.0-33.0 [facility] Comment on above: Performed By: #### T SH, FT3, JUANCARLOS, LD, FT4, ADIFF, GFR, ANEU, CBC, CMP #### [place] [address] MCHC 32.7 G/dL Normal 32.0-36.0 [facility] Comment on above: Performed By: #### T SH, FT3, JUANCARLOS, LD, FT4, ADIFF, GFR, ANEU, CBC, CMP #### [place] [address] MCV (RBC) [Entitic vol] 86.1 fL Normal 81.0-100.0 [facility] Comment on above: Performed By: #### T SH, FT3, JUANCARLOS, LD, FT4, ADIFF, GFR, ANEU, CBC, CMP #### [place] [address] Platelet 245 10 3/mcL Normal 150-450 [facility] Comment on above: Performed By: #### T SH, FT3, JUANCARLOS, LD, FT4, ADIFF, GFR, ANEU, CBC, CMP #### [facility] [address] [place], [place] [address] Platelet mean volume (Bld) [Entitic vol] 6.9 fL Normal 6.4-10.5 [facility] Comment on above: Performed By: #### T SH, FT3, JUANCARLOS, LD, FT4, ADIFF, GFR, ANEU, CBC, CMP #### [place] [address] RBC 4.74 10 6/mcL Normal 4.50-6.00 [facility] Comment on above: Performed By: #### T SH, FT3, JUANCARLOS, LD, FT4, ADIFF, GFR, ANEU, CBC, CMP #### [place] [address] WBC 9.9 10 3/mcL Normal 4.5-10.8 [facility] Comment on above: Performed By: #### T SH, FT3, JUANCARLOS, LD, FT4, ADIFF, GFR, ANEU, CBC, CMP #### [place] [address] CMPon 10-22-2024 Albumin Level 3.4 G/dL Normal 3.2-4.8 [facility] Comment on above: Performed By: #### T SH, FT3, JUANCARLOS, LD, FT4, ADIFF, GFR, ANEU, CBC, CMP #### [place] [address] Albumin/Globulin [Mass ratio] 1.0 {ratio} Normal 0.9-1.6 [facility] Comment on above: Performed By: #### T SH, FT3, JUANCARLOS, LD, FT4, ADIFF, GFR, ANEU, CBC, CMP #### [place] [address] ALP [Catalytic activity/Vol] 91 U/L Normal 38-126 [facility] Comment on above: Performed By: #### T SH, FT3, JUANCARLOS, LD, FT4, ADIFF, GFR, ANEU, CBC, CMP #### [place] [id number] ALT [Catalytic activity/Vol] 11 U/L Low 12-55 [facility] Comment on above: Performed By: #### T SH, FT3, JUANCARLOS, LD, FT4, ADIFF, GFR, ANEU, CBC, CMP #### [address] [address] AST [Catalytic activity/Vol] 12 U/L Normal 8-34 [facility] Comment on above: Performed By: #### T SH, FT3, JUANCARLOS, LD, FT4, ADIFF, GFR, ANEU, CBC, CMP #### [address] [address] Bili Total 0.40 mg/dL Normal 0.20-1.20 [facility] Comment on above: Result Comment: Use of this assay is not recommended for patients undergoing treatment with eltrombopag due to the potential for falsely elevated results. Performed By: #### T SH, FT3, JUANCARLOS, LD, FT4, ADIFF, GFR, ANEU, CBC, CMP #### [address] [address] BUN/Creatinine Ratio 10.1 ratio Normal 10.0-22.0 [facility] Comment on above: Performed By: #### T SH, FT3, JUANCARLOS, LD, FT4, ADIFF, GFR, ANEU, CBC, CMP #### [address] [address] Calcium [Mass/Vol] 9.4 mg/dL Normal 8.7-10.4 [facility] Comment on above: Performed By: #### T SH, FT3, JUANCARLOS, LD, FT4, ADIFF, GFR, ANEU, CBC, CMP #### [address] [address] Chloride [Moles/Vol] 107 mmol/L Normal 98-110 [facility] Comment on above: Performed By: #### T SH, FT3, JUANCARLOS, LD, FT4, ADIFF, GFR, ANEU, CBC, CMP #### [address] [address] CO2 [Moles/Vol] 30 mmol/L Normal 22-32 [facility] Comment on above: Performed By: #### T SH, FT3, JUANCARLOS, LD, FT4, ADIFF, GFR, ANEU, CBC, CMP #### [address] [address] Creatinine [Mass/Vol] 1.38 mg/dL Normal 0.60-1.40 [facility] Comment on above: Result Comment: Test ing performed on [employer] analyzer using enzymatic creatinine methodology. Performed By: #### T SH, FT3, JUANCARLOS, LD, FT4, ADIFF, GFR, ANEU, CBC, CMP #### [address] [address] Electrolyte Balance 4.0 mEq/L Normal 4.0-15.0 [facility] Comment on above: Performed By: #### T SH, FT3, JUANCARLOS, LD, FT4, ADIFF, GFR, ANEU, CBC, CMP #### [address] [address] Globulin 3.3 G/dL Normal 2.5-4.2 [facility] Comment on above: Performed By: #### T SH, FT3, JUANCARLOS, LD, FT4, ADIFF, GFR, ANEU, CBC, CMP #### [address] [address] Glucose [Mass/Vol] 98 mg/dL Normal 70-110 [facility] Comment on above: Performed By: #### T SH, FT3, JUANCARLOS, LD, FT4, ADIFF, GFR, ANEU, CBC, CMP #### [address] [address] Potassium [Moles/Vol] 3.9 mmol/L Normal 3.5-5.0 [facility] Comment on above: Performed By: #### T SH, FT3, JUANCARLOS, LD, FT4, ADIFF, GFR, ANEU, CBC, CMP #### [address] [address] Sodium [Moles/Vol] 141 mmol/L Normal 136-145 [facility] Comment on above: Performed By: #### T SH, FT3, JUANCARLOS, LD, FT4, ADIFF, GFR, ANEU, CBC, CMP #### [address] [address] Total Protein 6.7 G/dL Normal 5.7-8.2 [facility] Comment on above: Performed By: #### T SH, FT3, JUANCARLOS, LD, FT4, ADIFF, GFR, ANEU, CBC, CMP #### [place] [address] Urea nitrogen [Mass/Vol] 14.0 mg/dL Normal 8.0-22.0 [facility] Comment on above: Performed By: #### T SH, FT3, JUANCARLOS, LD, FT4, ADIFF, GFR, ANEU, CBC, CMP #### [place] [address] CORTon 10-22-2024 Cortisol Level 11.6 mcg/dL Normal [facility] Comment on above: Result Comment: Juancarlos isol AM Reference Range 6.5-26.0 mcg/dL Cortisol PM Reference Range 3.5-15.0 mcg/dL Performed By: #### T SH, FT3, JUANCARLOS, LD, FT4, ADIFF, GFR, ANEU, CBC, CMP #### [place] [address] FT3on 10-22-2024 Free T3 [Mass/Vol] 3.59 pg/mL Normal 2.30-4.20 [facility] Comment on above: Performed By: #### T SH, FT3, JUANCARLOS, LD, FT4, ADIFF, GFR, ANEU, CBC, CMP #### [place] [address] FT4on 10-22-2024 Free T4 [Mass/Vol] 1.50 ng/dL Normal 0.89-1.76 [facility] Comment on above: Result Comment: No te - New Reference Range in effect 19 Performed By: #### T SH, FT3, JUANCARLOS, LD, FT4, ADIFF, GFR, ANEU, CBC, CMP #### [place] [address] LABORATORYOrdered By: SYSTEM SYSTEM on 10-22-2024 Albumin BCP dye [Mass/Vol] 3.4 G/dL Normal 3.2 - 4.8 G/dL AH ADM SS Albumin/Globulin [Mass ratio] 1.0 {ratio} Normal 0.9 - 1.6 ratio AH ADM SS ALP [Catalytic activity/Vol] 91 U/L Normal 38 - 126 U/L ADM SS ALT No additional P-5'-P [Catalytic activity/Vol] 11 U/L Low 12 - 55 U/L ADM SS AST [Catalytic activity/Vol] 12 U/L Normal 8 - 34 U/L ADM SS Basophils (Bld) [#/Vol] 0.1 103/mcL Normal 0.0 - 0.3 10^3/mcL Workflow SS Basophils/100 WBC (Bld) 0.8 % Normal 0.0 - 2.5 % Workflow SS Bilirubin [Mass/Vol] 0.40 mg/dL Normal 0.20 - 1.20 mg/dL ADM SS Comment on above: Interpretive Data: U se of this assay is not recommended for patients undergoing treatment with eltrombopag due to the potential for falsely elevated results. Calcium [Mass/Vol] 9.4 mg/dL Normal 8.7 - 10. 4 mg/dL ADM SS Chloride [Moles/Vol] 107 mmol/L Normal 98 - 11 0 mEq/L ADM SS CO2 [Moles/Vol] 30 mmol/L Normal 22 - 32 mEq/L ADM SS Cortisol [Mass/Vol] 11.6 ug/dL Invalid Interpretation Code [facility] Comment on above: Interpretive Data: C ortisol AM Reference Range 6.5-26.0 mcg/dL Cortisol PM Reference Range 3.5-15.0 mcg/dL Creatinine [Mass/Vol] 1.38 mg/dL Normal 0.60 - 1.40 mg/dL [facility] Comment on above: Interpretive Data: T esting performed on [employer] analyzer using enzymatic creatinine methodology. Electrolyte Balance 4.0 mEq/L Normal 4.0 - 15 .0 mEq/L ADM SS Eosinophils (Bld) [#/Vol] 0.8 103/mcL High 0.0 - 0.7 10^3/mcL Workflow SS Eosinophils/100 WBC (Bld) 8.4 % High 0.0 - 6.0 % Workflow SS Erythrocyte distribution width (RBC) [Ratio] 17.0 % High 11.5 - 15.5 % Workflow Estimated Glomerular Filtration Rate 64 ml/min/1.73sqm Invalid Interpretation Code ADM SS Comment on above: Interpretive Data: Stages of Chronic Kidney Disease (CKD) Stage Description eGFR(ml/min/1.73 sq.m.) CKD 1 Normal kidney function or >=90 normal kindney function with possible kidney damage (ex. Proteinuria) CKD 2 Kidney damage with mild loss 60-89 of kidney function CKD 3a Mild to moderate loss of kidney 45-59 function CKD 3b Moderate to severe loss of 30-44 of kindey function CKD 4 Severe loss of kidney function 15-29 CKD 5 Kidney failure <15 Note: (go live 2024) the eGFR calculation was updated to the 2020 CKD-EPI creatinine equation without a race factor to calculate the eGFR results. Free T3 [Mass/Vol] 3.59 pg/mL Normal 2.30 - 4. 20 pg/mL ADM SS Free T4 [Mass/Vol] 1.50 ng/dL Normal 0.89 - 1. 76 ng/dL AH ADM SS Comment on above: Interpretive Data: * *Note - New Reference Range in effect 19 Globulin 3.3 G/dL Normal 2.5 - 4.2 G/dL ADM SS Glucose [Mass/Vol] 98 mg/dL Normal 70 - 110 mg/dL ADM SS Hematocrit (Bld) [Volume fraction] 40.8 % Normal 40.0 - 52.0 % AH Workflow SS Hemoglobin (Bld) [Mass/Vol] 13.4 G/dL Normal 13.0 - 17.5 G/dL AH Workflow SS LDH Lactate to pyruvate reaction [Catalytic activity/Vol] 165 1 Normal 120 - 246 U/L ADM SS Lymphocytes (Bld) [#/Vol] 1.4 103/mcL Normal 0.9 - 4.3 10^3/mcL AH Workflow SS Lymphocytes/100 WBC (Bld) 14.0 % Low 20.0 - 40.0 % AH Workflow SS MCH (RBC) [Entitic mass] 28.2 pg Normal 27.0 - 33.0 pg AH Workflow SS MCHC 32.7 G/dL Normal 32.0 - 36.0 G/dL AH Workflow SS MCV (RBC) [Entitic vol] 86.1 fL Normal 81.0 - 100.0 fL AH Workflow SS Monocytes (Bld) [#/Vol] 0.7 103/mcL Normal 0.1 - 1.4 10^3/mcL AH Workflow SS Monocytes/100 WBC (Bld) 7.4 % Normal 2.0 - 13.0 % Workflow SS Neutrophils (Bld) [#/Vol] 6.9 103/mcL Normal 2.3 - 8.1 10^3/mcL AH Workflow SS Neutrophils/100 WBC (Bld) 69.4 % Normal 50.0 - 75.0 % Workflow SS Platelet mean volume (Bld) [Entitic vol] 6.9 fL Normal 6.4 - 10.5 fL Workflow SS Platelets (Bld) [#/Vol] 245 103/mcL Normal 150 - 450 10^3/mcL AH Workflow SS Potassium [Moles/Vol] 3.9 mmol/L Normal 3.5 - 5.0 mEq/L ADM SS Protein [Mass/Vol] 6.7 G/dL Normal 5.7 - 8.2 G/dL ADM SS RBC (Bld) [#/Vol] 4.74 106/mcL Normal 4.50 - 6.0 0 10^6/mcL Workflow SS Sodium [Moles/Vol] 141 mmol/L Normal 136 - 145 mEq/L ADM SS TSH Qn 3.249 mIU/mL Normal 0.550 - 4.780 mIU/mL ADM SS Urea nitrogen [Mass/Vol] 14.0 mg/dL Normal 8.0 - 22.0 mg/dL ADM SS Urea nitrogen/Creatinine [Mass ratio] 10.1 ratio Normal 10.0 - 22.0 ratio ADM SS WBC (Bld) [#/Vol] 9.9 103/mcL Normal 4.5 - 10.8 10^3/mcL Workflow SS LDHon 10-22-2024 LDH 165 U/L Normal 120-246 [facility] Comment on above: Performed By: #### T SH, FT3, JUANCARLOS, LD, FT4, ADIFF, GFR, ANEU, CBC, CMP #### [address] [address] TSHon 10-22-2024 TSH 3.249 mIU/mL Normal 0.550-4.780 [facility] Comment on above: Performed By: #### T SH, FT3, JUANCARLOS, LD, FT4, ADIFF, GFR, ANEU, CBC, CMP #### [address] [address] CEFTAZIDIME+AVIBACTAM:SUSC:P T:ISOLATE:ORDQN:MICon 10-16-2024 cefTAZidime+Avibactam KEN [Susc] Few Proteus mirabilis [employer] B Beta Hemolytic Strep (Strep agalactiae) Sensitivity testing is not recommended for one of the following reasons: 1. Established susceptibility patterns are available or 2. Interpretative criteria are not available. [facility] cefTAZidime+Avibactam KEN [S usc]on 10-16-2024 GS 1+ Polymorphonuclear cells 1+ Mononuclear cells 1+ Gram Positive Cocci [facility] Proteus mirabilis Proteus mirabilis [facility] CT ABDOMEN/PELVIS W/ORAL CON TRAST ONLYon 10-10-2024 CT ABDOMEN/PELVIS W/ORAL CONTRAST ONLY ORIGINAL EXAMINATION: CT OF THE ABDOMEN AND PELVIS WITHOUT CONTRAST 10/08/2024 12:01 pm TECHNIQUE: CT of the abdomen and pelvis was performed without the administration of intravenous contrast. Multiplanar reformatted images are provided for review. Automated exposure control, iterative reconstruction, and/or weight based adjustment of the mA/kV was utilized to reduce the radiation dose to as low as reasonably achievable. COMPARISON: 06/26/2024. HISTORY: ORDERING SYSTEM PROVIDED HISTORY: Reason for Exam: renal cancer surveillance renal cancer surveillance FINDINGS: Note: RECIST 1.1 is not applicable, as disease is not "evaluable" without IV contrast. LOWER CHEST: CT chest performed same day and reported separately. ORGANS: Scattered stable hepatic cysts. No focal liver lesions. Visualized portions of the spleen, pancreas, and adrenal glands demonstrate no acute abnormality. There is layering hyperdensity within the gallbladder which likely represents small stones or sludge. KIDNEYS AND URINARY TRACT: There is a left nephrectomy. Stable nephrectomy bed. The right kidney is unremarkable.No renal calculi are identified. No evidence for hydronephrosis. PELVIS: The bladder and pelvic organs are unremarkable. GI/BOWEL: No bowel obstruction. Scattered sigmoid diverticulosis diverticulitis. The appendix is unremarkable. There is a left posterolateral flank hernia which contains small the portions of the descending colon. PERITONEUM/RETROPERITON EUM: No lymphadenopathy is noted.No free air or free fluid.There is mild nonaneurysmal aortoiliac atherosclerosis. BONES/SOFT TISSUES: The osseous structures demonstrate no acute abnormality. Pathologic compression deformity of T11. Degenerative changes noted in the lumbar spine. IMPRESSION: Status post left nephrectomy with no evidence of new or recurrent disease. I have personally reviewed the images of this examination and agree with the resident's findings and interpretation. Interpreted by: Rachell Dennis MD Preliminary Report By: Lyndsay Wolfe MD Electronically signed By Rachell Dennis MD Dictated Date: 10/10/2024 8:52:56 AM Prelim Date: 10/10/2024 11:38:10 AM Sign Date: 10/10/2024 11:38:10 AM Ordering Provider: EZEQUIEL LEAL [facility] CT THORAX W/O CONTRASTon CT THORAX W/O CONTRAST ORIGINAL EXAMINATION: CT CHEST WITHOUT CONTRAST 10/08/2024 12:00 pm HISTORY: ORDERING SYSTEM PROVIDED HISTORY: Reason for Exam: renal cancer surveillance renal cancer surveillance. TECHNIQUE: Multiple-row detector helical CT examination of the thorax without IV contrast. Axial, sagittal, and coronal reconstructed images. This exam was performed according to the departmental dose-optimization program which includes automated exposure control, adjustment of the mA and/or kV according to patient size and/or use of iterative reconstruction technique. COMPARISON: CT thorax, 06/26/2024 FINDINGS: Left thyroid nodule measures 1.7 cm. Central vascular catheter seen from a right chest wall approach. The heart is borderline in size.Severe coronary artery calcifications seen. No pericardial effusion. The great vessels are normal in caliber. There is no visible lymphadenopathy within the limits imposed by lack of IV contrast. New nodule with surrounding ground-glass in the right lower lobe measures 7 mm. There other new ground-glass densities in the right lower. Tiny nodule and ground-glass seen in the right lower lobe on image 42. There is a new subpleural nodular density in the left lower lobe measuring 5 mm on image 29. there is no pneumothorax or pleural fluid. No endotracheal or endobronchial lesion identified. Pathologic compression fracture at T11 is unchanged. CT abdomen and pelvis reported separately. Recist 1.1: Lesions from the initial RECIST exam. POTENTIAL TARGET TUMOR LESIONS: None POTENTIAL TARGET LYMPH NODES: None NONTARGET LESIONS (Definite tumor lesions, nontarget lymph nodes, immeasurable lesions such as lymphangitic involvement, ascites, pleural effusions, etc.): Unchanged pathologic compression fracture at approximately T11 IMPRESSION: 1. There are new nodules and ground-glass opacities in the lungs. These lesions could be inflammatory or neoplastic. Close surveillance advised. 2. Unchanged pathologic compression fracture at T11. 3. Incidental left thyroid nodule measuring 1.7 cm. Recommend non-emergent thyroid ultrasound. Reference: J Am Gregoria Radiol. 2015 Mar;12(2): 143-50 4. Other incidental findings, as above. Interpreted by: Helio Francis MD Preliminary Report By: Helio Francis MD Electronically signed By Helio Francis MD Dictated Date: 10/10/2024 11:22:40 AM Prelim Date: 10/10/2024 11:30:58 AM Sign Date: 10/10/2024 11:30:58 AM Ordering Provider: [facility] .Auto Diffon 09-17-2024 Basophil, Absolute 0.1 10 3/mcL Normal 0.0-0.3 [facility] Comment on above: Performed By: #### T SH, FT3, JUANCARLOS, LD, FT4, ADIFF, GFR, ANEU, CBC, CMP #### [address] [address] Basophils/100 WBC (Bld) 1.0 % Normal 0.0-2.5 [facility] Comment on above: Performed By: #### T SH, FT3, JUANCARLOS, LD, FT4, ADIFF, GFR, ANEU, CBC, CMP #### [address] [address] Eosinophil, Absolute 0.7 10 3/mcL Normal 0.0-0.7 [facility] Comment on above: Performed By: #### T SH, FT3, JUANCARLOS, LD, FT4, ADIFF, GFR, ANEU, CBC, CMP #### [address] [address] Eosinophils/100 WBC (Bld) 7.1 % High 0.0-6.0 [facility] Comment on above: Performed By: #### T SH, FT3, JUANCARLOS, LD, FT4, ADIFF, GFR, ANEU, CBC, CMP #### [address] [address] Lymphocyte, Absolute 1.6 10 3/mcL Normal 0.9-4.3 [facility] Comment on above: Performed By: #### T SH, FT3, JUANCARLOS, LD, FT4, ADIFF, GFR, ANEU, CBC, CMP #### [address] [address] Lymphocytes/100 WBC (Bld) 16.1 % Low 20.0-40.0 [facility] Comment on above: Performed By: #### T SH, FT3, JUANCARLOS, LD, FT4, ADIFF, GFR, ANEU, CBC, CMP #### [address] [address] Monocyte, Absolute 0.7 10 3/mcL Normal 0.1-1.4 [facility] Comment on above: Performed By: #### T SH, FT3, JUANCARLOS, LD, FT4, ADIFF, GFR, ANEU, CBC, CMP #### [address] [address] Monocytes/100 WBC (Bld) 6.6 % Normal 2.0-13.0 [facility] Comment on above: Performed By: #### T SH, FT3, JUANCARLOS, LD, FT4, ADIFF, GFR, ANEU, CBC, CMP #### [address] [address] Neutrophils/100 WBC (Bld) 69.2 % Normal 50.0-75.0 [facility] Comment on above: Performed By: #### T SH, FT3, JUANCARLOS, LD, FT4, ADIFF, GFR, ANEU, CBC, CMP #### [address] [address] .GFRon 09-17-2024 Estimated Glomerular Filtration Rate 55 ml/min/1.73sqm Normal [facility] Comment on above: Result Comment: Stages of Chronic Kidney Disease (CKD) Stage Description eGFR(ml/min/1.73 sq.m.) CKD 1 Normal kidney function or >=90 normal kindney function with possible kidney damage (ex. Proteinuria) CKD 2 Kidney damage with mild loss 60-89 of kidney function CKD 3a Mild to moderate loss of kidney 45-59 function CKD 3b Moderate to severe loss of 30-44 of kindey function CKD 4 Severe loss of kidney function 15-29 CKD 5 Kidney failure <15 Note: (go live 2024) the eGFR calculation was updated to the 2020 CKD-EPI creatinine equation without a race factor to calculate the eGFR results. Performed By: #### T SH, FT3, JUANCARLOS, LD, FT4, ADIFF, GFR, ANEU, CBC, CMP #### [place] [address] .NEUABSon 09-17-2024 Neutrophil, Absolute 6.8 10 3/mcL Normal 2.3-8.1 [facility] Comment on above: Performed By: #### T SH, FT3, JUANCARLOS, LD, FT4, ADIFF, GFR, ANEU, CBC, CMP #### [place] [address] CBCon 09-17-2024 Erythrocyte distribution width (RBC) [Ratio] 17.0 % High 11.5-15.5 [facility] Comment on above: Performed By: #### T SH, FT3, JUANCARLOS, LD, FT4, ADIFF, GFR, ANEU, CBC, CMP #### [place] [address] Hematocrit (Bld) [Volume fraction] 36.5 % Low 40.0-52.0 [facility] Comment on above: Performed By: #### T SH, FT3, JUANCARLOS, LD, FT4, ADIFF, GFR, ANEU, CBC, CMP #### [place] [address] Hgb 12.2 G/dL Low 13.0-17.5 [facility] Comment on above: Performed By: #### T SH, FT3, JUANCARLOS, LD, FT4, ADIFF, GFR, ANEU, CBC, CMP #### [place] [address] MCH (RBC) [Entitic mass] 29.7 pg Normal 27.0-33.0 [facility] Comment on above: Performed By: #### T SH, FT3, JUANCARLOS, LD, FT4, ADIFF, GFR, ANEU, CBC, CMP #### [place] [address] MCHC 33.4 G/dL Normal 32.0-36.0 [facility] Comment on above: Performed By: #### T SH, FT3, JUANCARLOS, LD, FT4, ADIFF, GFR, ANEU, CBC, CMP #### [place] [address] MCV (RBC) [Entitic vol] 88.8 fL Normal 81.0-100.0 [facility] Comment on above: Performed By: #### T SH, FT3, JUANCARLOS, LD, FT4, ADIFF, GFR, ANEU, CBC, CMP #### [place] [address] Platelet 288 10 3/mcL Normal 150-450 [facility] Comment on above: Performed By: #### T SH, FT3, JUANCARLOS, LD, FT4, ADIFF, GFR, ANEU, CBC, CMP #### [place] [address] Platelet mean volume (Bld) [Entitic vol] 7.3 fL Normal 6.4-10.5 [facility] Comment on above: Performed By: #### T SH, FT3, JUANCARLOS, LD, FT4, ADIFF, GFR, ANEU, CBC, CMP #### [place] [address] RBC 4.11 10 6/mcL Low 4.50-6.00 [facility] Comment on above: Performed By: #### T SH, FT3, JUANCARLOS, LD, FT4, ADIFF, GFR, ANEU, CBC, CMP #### [place] [address] WBC 9.8 10 3/mcL Normal 4.5-10.8 [facility] Comment on above: Performed By: #### T SH, FT3, JUANCARLOS, LD, FT4, ADIFF, GFR, ANEU, CBC, CMP #### [place] [address] CMPon 09-17-2024 Albumin Level 3.3 G/dL Normal 3.2-4.8 [facility] Comment on above: Performed By: #### T SH, FT3, JUANCARLOS, LD, FT4, ADIFF, GFR, ANEU, CBC, CMP #### [place] [address] Albumin/Globulin [Mass ratio] 1.1 {ratio} Normal 0.9-1.6 [facility] Comment on above: Performed By: #### T SH, FT3, JUANCARLOS, LD, FT4, ADIFF, GFR, ANEU, CBC, CMP #### [place] [address] ALP [Catalytic activity/Vol] 94 U/L Normal 38-126 [facility] Comment on above: Performed By: #### T SH, FT3, JUANCARLOS, LD, FT4, ADIFF, GFR, ANEU, CBC, CMP #### [place] [id number] ALT [Catalytic activity/Vol] 9 U/L Low 12-55 [facility] Comment on above: Performed By: #### T SH, FT3, JUANCARLOS, LD, FT4, ADIFF, GFR, ANEU, CBC, CMP #### [place] [id number] AST [Catalytic activity/Vol] 11 U/L Normal 8-34 [facility] Comment on above: Performed By: #### T SH, FT3, JUANCARLOS, LD, FT4, ADIFF, GFR, ANEU, CBC, CMP #### [place] [address] Bili Total 0.40 mg/dL Normal 0.20-1.20 [facility] Comment on above: Result Comment: Use of this assay is not recommended for patients undergoing treatment with eltrombopag due to the potential for falsely elevated results. Performed By: #### T SH, FT3, JUANCARLOS, LD, FT4, ADIFF, GFR, ANEU, CBC, CMP #### [place] [address] BUN/Creatinine Ratio 13.4 ratio Normal 10.0-22.0 [facility] Comment on above: Performed By: #### T SH, FT3, JUANCARLOS, LD, FT4, ADIFF, GFR, ANEU, CBC, CMP #### [address] [address] Calcium [Mass/Vol] 8.4 mg/dL Low 8.7-10.4 [facility] Comment on above: Performed By: #### T SH, FT3, JUANCARLOS, LD, FT4, ADIFF, GFR, ANEU, CBC, CMP #### [address] [address] Chloride [Moles/Vol] 106 mmol/L Normal 98-110 [facility] Comment on above: Performed By: #### T SH, FT3, JUANCARLOS, LD, FT4, ADIFF, GFR, ANEU, CBC, CMP #### [address] [address] CO2 [Moles/Vol] 25 mmol/L Normal 22-32 [facility] Comment on above: Performed By: #### T SH, FT3, JUANCARLOS, LD, FT4, ADIFF, GFR, ANEU, CBC, CMP #### [address] [address] Creatinine [Mass/Vol] 1.57 mg/dL High 0.60-1.40 [facility] Comment on above: Result Comment: Test ing performed on [employer] analyzer using enzymatic creatinine methodology. Performed By: #### T SH, FT3, JUANCARLOS, LD, FT4, ADIFF, GFR, ANEU, CBC, CMP #### [place] [id number] Electrolyte Balance 10.0 mEq/L Normal 4.0-15.0 [facility] Comment on above: Performed By: #### T SH, FT3, JUANCARLOS, LD, FT4, ADIFF, GFR, ANEU, CBC, CMP #### [place] [id number] Globulin 2.9 G/dL Normal 2.5-4.2 [facility] Comment on above: Performed By: #### T SH, FT3, JUANCARLOS, LD, FT4, ADIFF, GFR, ANEU, CBC, CMP #### [address] [address] Glucose [Mass/Vol] 130 mg/dL High 70-110 [facility] Comment on above: Performed By: #### T SH, FT3, JUANCARLOS, LD, FT4, ADIFF, GFR, ANEU, CBC, CMP #### [address] [address] Potassium [Moles/Vol] 3.6 mmol/L Normal 3.5-5.0 [facility] Comment on above: Performed By: #### T SH, FT3, JUANCARLOS, LD, FT4, ADIFF, GFR, ANEU, CBC, CMP #### [address] [address] Sodium [Moles/Vol] 141 mmol/L Normal 136-145 [facility] Comment on above: Performed By: #### T SH, FT3, JUANCARLOS, LD, FT4, ADIFF, GFR, ANEU, CBC, CMP #### [address] [address] Total Protein 6.2 G/dL Normal 5.7-8.2 [facility] Comment on above: Performed By: #### T SH, FT3, JUANCARLOS, LD, FT4, ADIFF, GFR, ANEU, CBC, CMP #### [place] [id number] Urea nitrogen [Mass/Vol] 21.0 mg/dL Normal 8.0-22.0 [facility] Comment on above: Performed By: #### T SH, FT3, JUANCARLOS, LD, FT4, ADIFF, GFR, ANEU, CBC, CMP #### [address] [address] CORTon 09-17-2024 Cortisol Level 15.6 mcg/dL Normal [facility] Comment on above: Result Comment: Juancarlos isol AM Reference Range 6.5-26.0 mcg/dL Cortisol PM Reference Range 3.5-15.0 mcg/dL Performed By: #### T SH, FT3, JUANCARLOS, LD, FT4, ADIFF, GFR, ANEU, CBC, CMP #### [facility] [address] [place] [address] FT3on 09-17-2024 Free T3 [Mass/Vol] 3.84 pg/mL Normal 2.30-4.20 [facility] Comment on above: Performed By: #### T SH, FT3, JUANCARLOS, LD, FT4, ADIFF, GFR, ANEU, CBC, CMP #### [place] [id number] [place] [address] FT4on 09-17-2024 Free T4 [Mass/Vol] 1.51 ng/dL Normal 0.89-1.76 [facility] Comment on above: Result Comment: No te - New Reference Range in effect 19 Performed By: #### T SH, FT3, JUANCARLOS, LD, FT4, ADIFF, GFR, ANEU, CBC, CMP #### [address] [address] LABORATORYOrdered By: SYSTEM SYSTEM on 09-17-2024 Albumin BCP dye [Mass/Vol] 3.3 G/dL Normal 3.2 - 4.8 G/dL ADM SS Albumin/Globulin [Mass ratio] 1.1 {ratio} Normal 0.9 - 1.6 ratio AH ADM SS ALP [Catalytic activity/Vol] 94 U/L Normal 38 - 126 U/L ADM SS ALT No additional P-5'-P [Catalytic activity/Vol] 9 U/L Low 12 - 55 U/L ADM SS AST [Catalytic activity/Vol] 11 U/L Normal 8 - 34 U/L ADM SS Basophils (Bld) [#/Vol] 0.1 103/mcL Normal 0.0 - 0.3 10^3/mcL Workflow SS Basophils/100 WBC (Bld) 1.0 % Normal 0.0 - 2.5 % Workflow SS Bilirubin [Mass/Vol] 0.40 mg/dL Normal 0.20 - 1.20 mg/dL ADM SS Comment on above: Interpretive Data: U se of this assay is not recommended for patients undergoing treatment with eltrombopag due to the potential for falsely elevated results. Calcium [Mass/Vol] 8.4 mg/dL Low 8.7 - 10. 4 mg/dL ADM SS Chloride [Moles/Vol] 106 mmol/L Normal 98 - 11 0 mEq/L AH ADM SS CO2 [Moles/Vol] 25 mmol/L Normal 22 - 32 mEq/L AH ADM SS Cortisol [Mass/Vol] 15.6 ug/dL Invalid Interpretation Code AH ADM SS Comment on above: Interpretive Data: C ortisol AM Reference Range 6.5-26.0 mcg/dL Cortisol PM Reference Range 3.5-15.0 mcg/dL Creatinine [Mass/Vol] 1.57 mg/dL High 0.60 - 1.40 mg/dL AH ADM SS Comment on above: Interpretive Data: T esting performed on [employer] analyzer using enzymatic creatinine methodology. Electrolyte Balance 10.0 mEq/L Normal 4.0 - 15 .0 mEq/L ADM SS Eosinophils (Bld) [#/Vol] 0.7 103/mcL Normal 0.0 - 0.7 10^3/mcL Workflow SS Eosinophils/100 WBC (Bld) 7.1 % High 0.0 - 6.0 % Workflow SS Erythrocyte distribution width (RBC) [Ratio] 17.0 % High 11.5 - 15.5 % AH Workflow SS Estimated Glomerular Filtration Rate 55 ml/min/1.73sqm Invalid Interpretation Code ADM SS Comment on above: Interpretive Data: Stages of Chronic Kidney Disease (CKD) Stage Description eGFR(ml/min/1.73 sq.m.) CKD 1 Normal kidney function or >=90 normal kindney function with possible kidney damage (ex. Proteinuria) CKD 2 Kidney damage with mild loss 60-89 of kidney function CKD 3a Mild to moderate loss of kidney 45-59 function CKD 3b Moderate to severe loss of 30-44 of kindey function CKD 4 Severe loss of kidney function 15-29 CKD 5 Kidney failure <15 Note: (go live 2024) the eGFR calculation was updated to the 2020 CKD-EPI creatinine equation without a race factor to calculate the eGFR results. Free T3 [Mass/Vol] 3.84 pg/mL Normal 2.30 - 4. 20 pg/mL AH ADM SS Free T4 [Mass/Vol] 1.51 ng/dL Normal 0.89 - 1. 76 ng/dL AH ADM SS Comment on above: Interpretive Data: * *Note - New Reference Range in effect 19 Globulin 2.9 G/dL Normal 2.5 - 4.2 G/dL ADM SS Glucose [Mass/Vol] 130 mg/dL High 70 - 110 mg/dL ADM SS Hematocrit (Bld) [Volume fraction] 36.5 % Low 40.0 - 52.0 % AH Workflow SS Hemoglobin (Bld) [Mass/Vol] 12.2 G/dL Low 13.0 - 17.5 G/dL AH Workflow SS Lymphocytes (Bld) [#/Vol] 1.6 103/mcL Normal 0.9 - 4.3 10^3/mcL AH Workflow SS Lymphocytes/100 WBC (Bld) 16.1 % Low 20.0 - 40.0 % Workflow SS MCH (RBC) [Entitic mass] 29.7 pg Normal 27.0 - 33.0 pg AH Workflow SS MCHC 33.4 G/dL Normal 32.0 - 36.0 G/dL Workflow SS MCV (RBC) [Entitic vol] 88.8 fL Normal 81.0 - 100.0 fL Workflow SS Monocytes (Bld) [#/Vol] 0.7 103/mcL Normal 0.1 - 1.4 10^3/mcL AH Workflow SS Monocytes/100 WBC (Bld) 6.6 % Normal 2.0 - 13.0 % AH Workflow SS Neutrophils (Bld) [#/Vol] 6.8 103/mcL Normal 2.3 - 8.1 10^3/mcL AH Workflow SS Neutrophils/100 WBC (Bld) 69.2 % Normal 50.0 - 75.0 % AH Workflow SS Platelet mean volume (Bld) [Entitic vol] 7.3 fL Normal 6.4 - 10.5 fL Workflow SS Platelets (Bld) [#/Vol] 288 103/mcL Normal 150 - 450 10^3/mcL AH Workflow SS Potassium [Moles/Vol] 3.6 mmol/L Normal 3.5 - 5.0 mEq/L ADM SS Protein [Mass/Vol] 6.2 G/dL Normal 5.7 - 8.2 G/dL ADM SS RBC (Bld) [#/Vol] 4.11 106/mcL Low 4.50 - 6.0 0 10^6/mcL AH Workflow SS Sodium [Moles/Vol] 141 mmol/L Normal 136 - 145 mEq/L ADM SS TSH Qn 2.913 mIU/mL Normal 0.550 - 4.780 mIU/mL ADM SS Urea nitrogen [Mass/Vol] 21.0 mg/dL Normal 8.0 - 22.0 mg/dL ADM SS Urea nitrogen/Creatinine [Mass ratio] 13.4 ratio Normal 10.0 - 22.0 ratio ADM SS WBC (Bld) [#/Vol] 9.8 103/mcL Normal 4.5 - 10.8 10^3/mcL Workflow SS TSHon 09-17-2024 TSH 2.913 mIU/mL Normal 0.550-4.[address] [facility] Comment on above: Performed By: #### T SH, FT3, JUANCARLOS, LD, FT4, ADIFF, GFR, ANEU, CBC, CMP #### [place] [address] .Auto Diffon 08-06-2024 Basophil, Absolute 0.1 10 3/mcL Normal 0.0-0.3 [facility] Comment on above: Performed By: #### C ORT #### [place] [address] #### ADIFF, LD, FT3, TSH, GFR, ANEU, FT4, CMP, CBC #### [address] [address] Basophils/100 WBC (Bld) 0.6 % Normal 0.0-2.5 [facility] Comment on above: Performed By: #### C ORT #### [place] [address] #### ADIFF, LD, FT3, TSH, GFR, ANEU, FT4, CMP, CBC #### [address] [address] Eosinophil, Absolute 0.7 10 3/mcL Normal 0.0-0.7 [facility] Comment on above: Performed By: #### C ORT #### [place] [address] #### ADIFF, LD, FT3, TSH, GFR, ANEU, FT4, CMP, CBC #### [address] [address] Eosinophils/100 WBC (Bld) 6.6 % High 0.0-6.0 [facility] Comment on above: Performed By: #### C ORT #### [place] [address] #### ADIFF, LD, FT3, TSH, GFR, ANEU, FT4, CMP, CBC #### [address] [address] Lymphocyte, Absolute 1.8 10 3/mcL Normal 0.9-4.3 [facility] Comment on above: Performed By: #### C ORT #### [place] [address] #### ADIFF, LD, FT3, TSH, GFR, ANEU, FT4, CMP, CBC #### [address] [address] Lymphocytes/100 WBC (Bld) 17.7 % Low 20.0-40.0 [facility] Comment on above: Performed By: #### C ORT #### [place] [address] #### ADIFF, LD, FT3, TSH, GFR, ANEU, FT4, CMP, CBC #### [address] [address] Monocyte, Absolute 0.9 10 3/mcL Normal 0.1-1.4 [facility] Comment on above: Performed By: #### C ORT #### [place] [address] #### ADIFF, LD, FT3, TSH, GFR, ANEU, FT4, CMP, CBC #### [address] [address] Monocytes/100 WBC (Bld) 8.7 % Normal 2.0-13.0 [facility] Comment on above: Performed By: #### C ORT #### [place] [address] #### ADIFF, LD, FT3, TSH, GFR, ANEU, FT4, CMP, CBC #### [address] [address] Neutrophils/100 WBC (Bld) 66.4 % Normal 50.0-75.0 [facility] Comment on above: Performed By: #### C ORT #### [address] [address] #### ADIFF, LD, FT3, TSH, GFR, ANEU, FT4, CMP, CBC #### [address] [address] .GFRon 08-06-2024 Estimated Glomerular Filtration Rate 46 ml/min/1.73sqm Normal [facility] Comment on above: Result Comment: Stages of Chronic Kidney Disease (CKD) Stage Description eGFR(ml/min/1.73 sq.m.) CKD 1 Normal kidney function or >=90 normal kindney function with possible kidney damage (ex. Proteinuria) CKD 2 Kidney damage with mild loss 60-89 of kidney function CKD 3a Mild to moderate loss of kidney 45-59 function CKD 3b Moderate to severe loss of 30-44 of kindey function CKD 4 Severe loss of kidney function 15-29 CKD 5 Kidney failure <15 Note: (go live 2024) the eGFR calculation was updated to the 2020 CKD-EPI creatinine equation without a race factor to calculate the eGFR results. Performed By: #### U ESTEFANY Valenzuela #### [address] [address] .NEUABSon 08-06-2024 Neutrophil, Absolute 6.7 10 3/mcL Normal 2.3-8.1 [facility] Comment on above: Performed By: #### C ORT #### [address] [address] #### ADIFF, LD, FT3, TSH, GFR, ANEU, FT4, CMP, CBC #### [address] [address] CBCon 08-06-2024 Erythrocyte distribution width (RBC) [Ratio] 17.7 % High 11.5-15.5 [facility] Comment on above: Performed By: #### C ORT #### [address] [address] #### ADIFF, LD, FT3, TSH, GFR, ANEU, FT4, CMP, CBC #### [address] [address] Hematocrit (Bld) [Volume fraction] 38.8 % Low 40.0-52.0 [facility] Comment on above: Performed By: #### C ORT #### [place] [address] #### ADIFF, LD, FT3, TSH, GFR, ANEU, FT4, CMP, CBC #### [place] [address] Hgb 12.7 G/dL Low 13.0-17.5 [facility] Comment on above: Performed By: #### C ORT #### [place] [address] #### ADIFF, LD, FT3, TSH, GFR, ANEU, FT4, CMP, CBC #### [place] [address] MCH (RBC) [Entitic mass] 31.7 pg Normal 27.0-33.0 [facility] Comment on above: Performed By: #### C ORT #### [place] [address] #### ADIFF, LD, FT3, TSH, GFR, ANEU, FT4, CMP, CBC #### [place] [address] MCHC 32.7 G/dL Normal 32.0-36.0 [facility] Comment on above: Performed By: #### C ORT #### [place] [address] #### ADIFF, LD, FT3, TSH, GFR, ANEU, FT4, CMP, CBC #### [place] [id number] MCV (RBC) [Entitic vol] 96.7 fL Normal 81.0-100.0 [facility] Comment on above: Performed By: #### C ORT #### [place] [address] #### ADIFF, LD, FT3, TSH, GFR, ANEU, FT4, CMP, CBC #### [address] [address] Platelet 286 10 3/mcL Normal 150-450 [facility] Comment on above: Performed By: #### C ORT #### [place] [address] #### ADIFF, LD, FT3, TSH, GFR, ANEU, FT4, CMP, CBC #### [address] [address] Platelet mean volume (Bld) [Entitic vol] 8.0 fL Normal 6.4-10.5 [facility] Comment on above: Performed By: #### C ORT #### [place] [address] #### ADIFF, LD, FT3, TSH, GFR, ANEU, FT4, CMP, CBC #### [address] [address] RBC 4.01 10 6/mcL Low 4.50-6.00 [facility] Comment on above: Performed By: #### C ORT #### [place] [address] #### ADIFF, LD, FT3, TSH, GFR, ANEU, FT4, CMP, CBC #### [address] [address] WBC 10.0 10 3/mcL Normal 4.5-10.8 [facility] Comment on above: Performed By: #### C ORT #### [place] [address] #### ADIFF, LD, FT3, TSH, GFR, ANEU, FT4, CMP, CBC #### [address] [address] CMPon 08-06-2024 Albumin Level 3.4 G/dL Low 3.5-5.0 [facility] Comment on above: Performed By: #### U Nicolas UAMICAO #### [address] [address] Albumin/Globulin [Mass ratio] 0.9 {ratio} Low 1.1-2.5 [facility] Comment on above: Performed By: #### U A, UAMICAO #### [address] [address] ALP [Catalytic activity/Vol] 70 U/L Normal 40-135 [facility] Comment on above: Performed By: #### U Nicolas UAMICAO #### [address] [address] ALT [Catalytic activity/Vol] 36 U/L Normal 16-63 [facility] Comment on above: Performed By: #### U Nicolas UAMICAO #### [address] [address] AST [Catalytic activity/Vol] 26 U/L Normal 10-40 [facility] Comment on above: Performed By: #### Nabil Valenzuela UAMICAO #### [address] [address] Bili Total 0.4 mg/dL Normal 0.2-1.0 [facility] Comment on above: Result Comment: Use of this assay is not recommended for patients undergoing treatment with eltrombopag due to the potential for falsely elevated results. Performed By: #### U Nicolas UAMICAO #### [address] [address] BUN/Creatinine Ratio 21 ratio Normal 7-27 [facility] Comment on above: Performed By: #### U Nicolas UAMICAO #### [address] [address] Calcium [Mass/Vol] 8.9 mg/dL Normal 8.4-10.2 [facility] Comment on above: Performed By: #### U Nicolas, UAMICAO #### [address] [address] Chloride [Moles/Vol] 106 mmol/L Normal 98-107 [facility] Comment on above: Performed By: #### U A, UAMICAO #### [address] [address] CO2 [Moles/Vol] 29 mmol/L Normal 22-29 [facility] Comment on above: Performed By: #### U A, UAMICAO #### [address] [address] Creatinine [Mass/Vol] 1.84 mg/dL High 0.67-1.17 [facility] Comment on above: Performed By: #### U A, [place] #### [address] [address] Electrolyte Balance 7.0 mEq/L Normal 4.0-15.0 [facility] Comment on above: Performed By: #### U A, [place] #### [address] [address] Globulin 3.9 G/dL Normal 2.7-4.4 [facility] Comment on above: Performed By: #### U A, [place] #### [address] [address] Glucose [Mass/Vol] 111 mg/dL High 70-105 [facility] Comment on above: Performed By: #### U A, [place] #### [address] [address] Potassium [Moles/Vol] 4.0 mmol/L Normal 3.5-5.1 [facility] Comment on above: Performed By: #### U A, [place] #### [address] [address] Sodium [Moles/Vol] 142 mmol/L Normal 136-145 [facility] Comment on above: Performed By: #### U A, [place] #### [address] [address] Total Protein 7.3 G/dL Normal 6.4-8.2 [facility] Comment on above: Performed By: #### ESTEFANY Ellis #### [address] [address] Urea nitrogen [Mass/Vol] 39 mg/dL High 7-18 [facility] Comment on above: Performed By: #### U ESTEFANY Valenzuela #### [address] [address] CORTon 08-06-2024 Cortisol Level 14.6 mcg/dL Normal [facility] Comment on above: Result Comment: Juancarlos isol AM Reference Range 6.5-26.0 mcg/dL Cortisol PM Reference Range 3.5-15.0 mcg/dL Performed By: #### ESTEFANY Ellis #### [place] [id number] FT3on 08-06-2024 Free T3 [Mass/Vol] 3.43 pg/mL Normal 2.30-4.00 [facility] Comment on above: Performed By: #### C ORT #### [place] [address] #### ADIFF, LD, FT3, TSH, GFR, ANEU, FT4, CMP, CBC #### [place] [id number] FT4on 08-06-2024 Free T4 [Mass/Vol] 1.09 ng/dL Normal 0.76-1.46 [facility] Comment on above: Performed By: #### C ORT #### [place] [address] #### ADIFF, LD, FT3, TSH, GFR, ANEU, FT4, CMP, CBC #### [address] [address] LABORATORYOrdered By: SYSTEM SYSTEM on 08-06-2024 Albumin BCP dye [Mass/Vol] 3.4 G/dL Low 3.5 - 5.0 G/dL AO ADM SS Albumin/Globulin [Mass ratio] 0.9 {ratio} Low 1.1 - 2.5 ratio AO ADM SS ALP [Catalytic activity/Vol] 70 U/L Normal 40 - 135 U/L AO ADM SS ALT With P-5'-P [Catalytic activity/Vol] 36 U/L Normal 16 - 63 U/L AO ADM SS AST With P-5'-P [Catalytic activity/Vol] 26 U/L Normal 10 - 40 U/L AO ADM SS Basophils (Bld) [#/Vol] 0.1 103/mcL Normal 0.0 - 0.3 10^3/mcL AO Workflow SS Basophils/100 WBC (Bld) 0.6 % Normal 0.0 - 2.5 % AO Workflow SS Bilirubin [Mass/Vol] 0.4 mg/dL Normal 0.2 - 1 .0 mg/dL AO ADM SS Comment on above: Interpretive Data: U se of this assay is not recommended for patients undergoing treatment with eltrombopag due to the potential for falsely elevated results. Calcium [Mass/Vol] 8.9 mg/dL Normal 8.4 - 10. 2 mg/dL AO ADM SS Chloride [Moles/Vol] 106 mmol/L Normal 98 - 10 7 mmol/L AO ADM SS CO2 [Moles/Vol] 29 mmol/L Normal 22 - 29 mmol/L AO ADM SS Cortisol [Mass/Vol] 14.6 ug/dL Invalid Interpretation Code AH ADM SS Comment on above: Interpretive Data: C ortisol AM Reference Range 6.5-26.0 mcg/dL Cortisol PM Reference Range 3.5-15.0 mcg/dL Creatinine [Mass/Vol] 1.84 mg/dL High 0.67 - 1.17 mg/dL AO ADM SS Electrolyte Balance 7.0 mEq/L Normal 4.0 - 15 .0 mEq/L AO ADM SS Eosinophil, Absolute 0.7 103/mcL Normal 0.0 - 0 .7 10^3/mcL AO Workflow SS Eosinophils/100 WBC (Bld) 6.6 % High 0.0 - 6.0 % AO Workflow SS Erythrocyte distribution width (RBC) [Ratio] 17.7 % High 11.5 - 15.5 % AO Workflow SS Estimated Glomerular Filtration Rate 46 ml/min/1.73sqm Invalid Interpretation Code AO Chemistry S Comment on above: Interpretive Data: Stages of Chronic Kidney Disease (CKD) Stage Description eGFR(ml/min/1.73 sq.m.) CKD 1 Normal kidney function or >=90 normal kindney function with possible kidney damage (ex. Proteinuria) CKD 2 Kidney damage with mild loss 60-89 of kidney function CKD 3a Mild to moderate loss of kidney 45-59 function CKD 3b Moderate to severe loss of 30-44 of kindey function CKD 4 Severe loss of kidney function 15-29 CKD 5 Kidney failure <15 Note: (go live 2024) the eGFR calculation was updated to the 2020 CKD-EPI creatinine equation without a race factor to calculate the eGFR results. Free T3 [Mass/Vol] 3.43 pg/mL Normal 2.30 - 4. 00 pg/mL AO ADM SS Free T4 [Mass/Vol] 1.09 ng/dL Normal 0.76 - 1. 46 ng/dL AO ADM SS Globulin 3.9 G/dL Normal 2.7 - 4.4 G/dL AO ADM SS Glucose [Mass/Vol] 111 mg/dL High 70 - 105 mg/dL AO ADM SS Hematocrit (Bld) [Volume fraction] 38.8 % Low 40.0 - 52.0 % AO Workflow SS Hemoglobin (Bld) [Mass/Vol] 12.7 G/dL Low 13.0 - 17.5 G/dL AO Workflow SS LDH [Catalytic activity/Vol] 155 U/L Normal 85 - 227 U/L AO ADM SS Lymphocytes (Bld) [#/Vol] 1.8 103/mcL Normal 0.9 - 4.3 10^3/mcL AO Workflow SS Lymphocytes/100 WBC (Bld) 17.7 % Low 20.0 - 40.0 % AO Workflow SS MCH (RBC) [Entitic mass] 31.7 pg Normal 27.0 - 33.0 pg AO Workflow SS MCHC 32.7 G/dL Normal 32.0 - 36.0 G/dL AO Workflow SS MCV (RBC) [Entitic vol] 96.7 fL Normal 81.0 - 100.0 fL AO Workflow SS Monocytes (Bld) [#/Vol] 0.9 103/mcL Normal 0.1 - 1.4 10^3/mcL AO Workflow SS Monocytes/100 WBC (Bld) 8.7 % Normal 2.0 - 13.0 % AO Workflow SS Neutrophils (Bld) [#/Vol] 6.7 103/mcL Normal 2.3 - 8.1 10^3/mcL AO Workflow SS Neutrophils/100 WBC (Bld) 66.4 % Normal 50.0 - 75.0 % AO Workflow SS Platelet mean volume (Bld) [Entitic vol] 8.0 fL Normal 6.4 - 10.5 fL AO Workflow SS Platelets (Bld) [#/Vol] 286 103/mcL Normal 150 - 450 10^3/mcL AO Workflow SS Potassium [Moles/Vol] 4.0 mmol/L Normal 3.5 - 5.1 mmol/L AO ADM SS Protein [Mass/Vol] 7.3 G/dL Normal 6.4 - 8.2 G/dL AO ADM SS RBC (Bld) [#/Vol] 4.01 106/mcL Low 4.50 - 6.0 0 10^6/mcL AO Workflow SS Sodium [Moles/Vol] 142 mmol/L Normal 136 - 145 mmol/L AO ADM SS TSH Qn 0.62 m[IU]/L Normal 0.36 - 3.74 mcIU/mL AO ADM SS Urea nitrogen [Mass/Vol] 39 mg/dL High 7 - 18 mg/dL AO ADM SS Urea nitrogen/Creatinine [Mass ratio] 21 ratio Normal 7 - 27 ratio AO ADM SS WBC (Bld) [#/Vol] 10.0 103/mcL Normal 4.5 - 10.8 10^3/mcL AO Workflow SS LDHon 08-06-2024 LDH 155 U/L Normal 85-227 [facility] Comment on above: Performed By: #### C ORT #### [place] [address] #### ADIFF, LD, FT3, TSH, GFR, ANEU, FT4, CMP, CBC #### [address] [address] TSHon 08-06-2024 TSH Qn 0.62 m[IU]/L Normal 0.36-3.74 [facility] Comment on above: Performed By: #### C ORT #### [place] [address] #### ADIFF, LD, FT3, TSH, GFR, ANEU, FT4, CMP, CBC #### [address] [address] .Auto Diffon 08-01-2024 Basophil, Absolute 0.0 10 3/mcL Normal 0.0-0.3 [facility] Comment on above: Performed By: #### T SH, FT3, JUANCARLOS, LD, FT4, ADIFF, GFR, ANEU, CBC, CMP #### [address] [address] Basophils/100 WBC (Bld) 0.2 % Normal 0.0-2.5 [facility] Comment on above: Performed By: #### T SH, FT3, JUANCARLOS, LD, FT4, ADIFF, GFR, ANEU, CBC, CMP #### [address] [address] Eosinophil, Absolute 0.0 10 3/mcL Normal 0.0-0.7 [facility] Comment on above: Performed By: #### T SH, FT3, JUANCARLOS, LD, FT4, ADIFF, GFR, ANEU, CBC, CMP #### [address] [address] Eosinophils/100 WBC (Bld) 0.2 % Normal 0.0-6.0 [facility] Comment on above: Performed By: #### T SH, FT3, JUANCARLOS, LD, FT4, ADIFF, GFR, ANEU, CBC, CMP #### [address] [address] Lymphocyte, Absolute 1.7 10 3/mcL Normal 0.9-4.3 [facility] Comment on above: Performed By: #### T SH, FT3, JUANCARLOS, LD, FT4, ADIFF, GFR, ANEU, CBC, CMP #### [address] [address] Lymphocytes/100 WBC (Bld) 17.0 % Low 20.0-40.0 [facility] Comment on above: Performed By: #### T SH, FT3, JUANCARLOS, LD, FT4, ADIFF, GFR, ANEU, CBC, CMP #### [address] [address] Monocyte, Absolute 0.5 10 3/mcL Normal 0.1-1.4 [facility] Comment on above: Performed By: #### T SH, FT3, JUANCARLOS, LD, FT4, ADIFF, GFR, ANEU, CBC, CMP #### [address] [address] Monocytes/100 WBC (Bld) 4.8 % Normal 2.0-13.0 [facility] Comment on above: Performed By: #### T SH, FT3, JUANCARLOS, LD, FT4, ADIFF, GFR, ANEU, CBC, CMP #### [address] [address] Neutrophils/100 WBC (Bld) 77.8 % High 50.0-75.0 [facility] Comment on above: Performed By: #### T SH, FT3, JUANCARLOS, LD, FT4, ADIFF, GFR, ANEU, CBC, CMP #### [address] [address] .GFRon 08-01-2024 Estimated Glomerular Filtration Rate 53 ml/min/1.73sqm Normal [facility] Comment on above: Result Comment: Stages of Chronic Kidney Disease (CKD) Stage Description eGFR(ml/min/1.73 sq.m.) CKD 1 Normal kidney function or >=90 normal kindney function with possible kidney damage (ex. Proteinuria) CKD 2 Kidney damage with mild loss 60-89 of kidney function CKD 3a Mild to moderate loss of kidney 45-59 function CKD 3b Moderate to severe loss of 30-44 of kindey function CKD 4 Severe loss of kidney function 15-29 CKD 5 Kidney failure <15 Note: (go live 2024) the eGFR calculation was updated to the 2020 CKD-EPI creatinine equation without a race factor to calculate the eGFR results. Performed By: #### T SH, FT3, JUANCARLOS, LD, FT4, ADIFF, GFR, ANEU, CBC, CMP #### [address] [address] .NEUABSon 08-01-2024 Neutrophil, Absolute 7.9 10 3/mcL Normal 2.3-8.1 [facility] Comment on above: Performed By: #### T SH, FT3, JUANCARLOS, LD, FT4, ADIFF, GFR, ANEU, CBC, CMP #### [address] [address] BMPon 08-01-2024 BUN/Creatinine Ratio 11.7 ratio Normal 10.0-22.0 [facility] Comment on above: Performed By: #### T SH, FT3, JUANCARLOS, LD, FT4, ADIFF, GFR, ANEU, CBC, CMP #### [address] [address] Calcium [Mass/Vol] 8.4 mg/dL Low 8.7-10.4 [facility] Comment on above: Performed By: #### T SH, FT3, JUANCARLOS, LD, FT4, ADIFF, GFR, ANEU, CBC, CMP #### [place] [id number] Chloride [Moles/Vol] 111 mmol/L High 98-110 [facility] Comment on above: Performed By: #### T SH, FT3, JUANCARLOS, LD, FT4, ADIFF, GFR, ANEU, CBC, CMP #### [place] [id number] CO2 [Moles/Vol] 21 mmol/L Low 22-32 [facility] Comment on above: Performed By: #### T SH, FT3, JUANCARLOS, LD, FT4, ADIFF, GFR, ANEU, CBC, CMP #### [place] [id number] Creatinine [Mass/Vol] 1.62 mg/dL High 0.60-1.40 [facility] Comment on above: Result Comment: Test ing performed on [employer] analyzer using enzymatic creatinine methodology. Performed By: #### T SH, FT3, JUANCARLOS, LD, FT4, ADIFF, GFR, ANEU, CBC, CMP #### [address] [address] Electrolyte Balance 12.0 mEq/L Normal 4.0-15.0 [facility] Comment on above: Performed By: #### T SH, FT3, JUANCARLOS, LD, FT4, ADIFF, GFR, ANEU, CBC, CMP #### [address] [address] Glucose [Mass/Vol] 128 mg/dL High 70-110 [facility] Comment on above: Performed By: #### T SH, FT3, JUANCARLOS, LD, FT4, ADIFF, GFR, ANEU, CBC, CMP #### [place] [address] Potassium [Moles/Vol] 4.2 mmol/L Normal 3.5-5.0 [facility] Comment on above: Performed By: #### T SH, FT3, JUANCARLOS, LD, FT4, ADIFF, GFR, ANEU, CBC, CMP #### [place] [address] Sodium [Moles/Vol] 144 mmol/L Normal 136-145 [facility] Comment on above: Performed By: #### T SH, FT3, JUANCARLOS, LD, FT4, ADIFF, GFR, ANEU, CBC, CMP #### [place] [address] Urea nitrogen [Mass/Vol] 19.0 mg/dL Normal 8.0-22.0 [facility] Comment on above: Performed By: #### T SH, FT3, JUANCARLOS, LD, FT4, ADIFF, GFR, ANEU, CBC, CMP #### [place] [address] CBCon 08-01-2024 Erythrocyte distribution width (RBC) [Ratio] 16.5 % High 11.5-15.5 [facility] Comment on above: Performed By: #### T SH, FT3, JUANCARLOS, LD, FT4, ADIFF, GFR, ANEU, CBC, CMP #### [place] [address] Hematocrit (Bld) [Volume fraction] 32.7 % Low 40.0-52.0 [facility] Comment on above: Performed By: #### T SH, FT3, JUANCARLOS, LD, FT4, ADIFF, GFR, ANEU, CBC, CMP #### [place] [address] Hgb 11.0 G/dL Low 13.0-17.5 [facility] Comment on above: Performed By: #### T SH, FT3, JUANCARLOS, LD, FT4, ADIFF, GFR, ANEU, CBC, CMP #### [place] [address] MCH (RBC) [Entitic mass] 31.7 pg Normal 27.0-33.0 [facility] Comment on above: Performed By: #### T SH, FT3, JUANCARLOS, LD, FT4, ADIFF, GFR, ANEU, CBC, CMP #### [place] [address] MCHC 33.5 G/dL Normal 32.0-36.0 [facility] Comment on above: Performed By: #### T SH, FT3, JUANCARLOS, LD, FT4, ADIFF, GFR, ANEU, CBC, CMP #### [place] [address] MCV (RBC) [Entitic vol] 94.7 fL Normal 81.0-100.0 [facility] Comment on above: Performed By: #### T SH, FT3, JUANCARLOS, LD, FT4, ADIFF, GFR, ANEU, CBC, CMP #### [place] [address] Platelet 201 10 3/mcL Normal 150-450 [facility] Comment on above: Performed By: #### T SH, FT3, JUANCARLOS, LD, FT4, ADIFF, GFR, ANEU, CBC, CMP #### [place] [address] Platelet mean volume (Bld) [Entitic vol] 7.3 fL Normal 6.4-10.5 [facility] Comment on above: Performed By: #### T SH, FT3, JUANCARLOS, LD, FT4, ADIFF, GFR, ANEU, CBC, CMP #### [place] [address] RBC 3.45 10 6/mcL Low 4.50-6.00 [facility] Comment on above: Performed By: #### T SH, FT3, JUANCARLOS, LD, FT4, ADIFF, GFR, ANEU, CBC, CMP #### [place] [address] WBC 10.1 10 3/mcL Normal 4.5-10.8 [facility] Comment on above: Performed By: #### T SH, FT3, JUANCARLOS, LD, FT4, ADIFF, GFR, ANEU, CBC, CMP #### [place] [address] Final Surgical Pathology Rep reny 08-01-2024 Final Surgical Pathology Report . Pathology Reports Accession: Collected Date/Time: Received Date/Time: Pathologist: [id number] 07/30/2024 17:34 EDT 07/31/2024 08:34 EDT DEMI LONG MD Final Surgical Pathology Report DIAGNOSIS: RIGHT THIGH ABSCESS: - SKIN AND SUBCUTANEOUS TISSUE WITH ORGANIZING ACUTE AND CHRONIC INFLAMMATION - SEE COMMENT Comment: In some areas, inflammation surrounds trapped squamous epithelium in the dermis, suggestive of benign inclusion cyst. Clinical correlation recommended. CLINICAL INFORMATION: Procedure: INCISION AND DRAINAGE OF RIGHT THIGH DUE TO MULTIPLE ABSCESSES Preoperative diagnosis: MULTIPLE RIGHT THIGH ABSCESSES Postoperative diagnosis: MULTIPLE RIGHT THIGH ABSCESSES SPECIMEN: A RIGHT THIGH ABSCESS GROSS DESCRIPTION: All parts labelled with patient name and [id number] Received in formalin labelled "right thigh abscess" Are 3 irregular patel wrinkled portions of skin ranging from 2 x 1 x 0.4 cm to 4.1 x 2.1 x 1.1 cm. The excision margins are inked black. RS-1 Eduin Palacios, Pathologists' Automation And Controls Manager (ASCP) Performed by EDUIN PALACIOS MICROSCOPIC DESCRIPTION: The microscopic examination is performed, except in the case of Gross Only. Verified by Pathology Report verified by [facility] DEMI LONG Sign out Date: 08/01/2024 11:25 Performing Lab: [facility], [address] [place] [address] Pathology Dept Disclaimer If ancillary studies were utilized, the following Laboratory Developed Test (LDT) disclaimer will apply: Under CLIA requirements, [facility] is qualified to perform high complexity testing. For all ancillary stains, positive and negative controls stain appropriately. Performance characteristics of immunohistochemical and chromogenic in-situ hybridization tests have been determined by [facility]. These tests are used for clinical purposes, They should not be regarded as investigational or for research. Normal [facility] Final Surgical Pathology Report Event Display: SP Gross All parts labelled with patient name and [id number] Received in formalin labelled "right thigh abscess" Are 3 irregular patel wrinkled portions of skin ranging from 2 x 1 x 0.4 cm to 4.1 x 2.1 x 1.1 cm. The excision margins are inked black. RS-1 Eduin Palacios, Pathologists' Automation And Controls Manager (ASCP) Performed by DEMI PHAM MD:VERIFY; Authored Date: [facility] Final Surgical Pathology Report Event Display: SP Signature Pathology Report verified by [facility] DEMI LONG Sign out Date: 08/01/2024 11:25 Performing Lab: [facility], [address] [place] [address] Pathology Dept DEMI LONG MD:VERIFY; Authored Date: [id number] [facility] Final Surgical Pathology Report Event Display: SP Specimen ARIGHT THIGH ABSCESS DEMI LONG MD:VERIFY; Authored Date: [id number] [facility] Final Surgical Pathology Report Event Display: SP Disclaimer If ancillary studies were utilized, the following Laboratory Developed Test (LDT) disclaimer will apply: Under CLIA requirements, [facility] is qualified to perform high complexity testing. For all ancillary stains, positive and negative controls stain appropriately. Performance characteristics of immunohistochemical and chromogenic in-situ hybridization tests have been determined by [facility]. These tests are used for clinical purposes, They should not be regarded as investigational or for research. DEMI LONG MD:VERIFY; Authored Date: [facility] Final Surgical Pathology Report Event Display: SP Micro The microscopic examination is performed, except in the case of Gross Only. DEMI LONG MD:VERIFY; Authored Date: [facility] Final Surgical Pathology Report Event Display: SP Dx RIGHT THIGH ABSCESS: - SKIN AND SUBCUTANEOUS TISSUE WITH ORGANIZING ACUTE AND CHRONIC INFLAMMATION - SEE COMMENT Comment: In some areas, inflammation surrounds trapped squamous epithelium in the dermis, suggestive of benign inclusion cyst. Clinical correlation recommended. DEMI LONG MD:VERIFY; Authored Date: [facility] LABORATORYOrdered By: SYSTEM SYSTEM on 08-01-2024 Basophils (Bld) [#/Vol] 0.0 103/mcL Normal 0.0 - 0.3 10^3/mcL AH Workflow SS Basophils/100 WBC (Bld) 0.2 % Normal 0.0 - 2.5 % AH Workflow SS Calcium [Mass/Vol] 8.4 mg/dL Low 8.7 - 10. 4 mg/dL AH ADM SS Chloride [Moles/Vol] 111 mmol/L High 98 - 11 0 mEq/L AH ADM SS CO2 [Moles/Vol] 21 mmol/L Low 22 - 32 mEq/L AH ADM SS Creatinine [Mass/Vol] 1.62 mg/dL High 0.60 - 1.40 mg/dL AH ADM SS Comment on above: Interpretive Data: T esting performed on [employer] analyzer using enzymatic creatinine methodology. Electrolyte Balance 12.0 mEq/L Normal 4.0 - 15 .0 mEq/L AH ADM SS Eosinophils (Bld) [#/Vol] 0.0 103/mcL Normal 0.0 - 0.7 10^3/mcL AH Workflow SS Eosinophils/100 WBC (Bld) 0.2 % Normal 0.0 - 6.0 % AH Workflow SS Erythrocyte distribution width (RBC) [Ratio] 16.5 % High 11.5 - 15.5 % AH Workflow SS Estimated Glomerular Filtration Rate 53 ml/min/1.73sqm Invalid Interpretation Code Chemistry S Comment on above: Interpretive Data: Stages of Chronic Kidney Disease (CKD) Stage Description eGFR(ml/min/1.73 sq.m.) CKD 1 Normal kidney function or >=90 normal kindney function with possible kidney damage (ex. Proteinuria) CKD 2 Kidney damage with mild loss 60-89 of kidney function CKD 3a Mild to moderate loss of kidney 45-59 function CKD 3b Moderate to severe loss of 30-44 of kindey function CKD 4 Severe loss of kidney function 15-29 CKD 5 Kidney failure <15 Note: (go live 2024) the eGFR calculation was updated to the 2020 CKD-EPI creatinine equation without a race factor to calculate the eGFR results. Glucose [Mass/Vol] 128 mg/dL High 70 - 110 mg/dL AH ADM SS Hematocrit (Bld) [Volume fraction] 32.7 % Low 40.0 - 52.0 % AH Workflow SS Hemoglobin (Bld) [Mass/Vol] 11.0 G/dL Low 13.0 - 17.5 G/dL AH Workflow SS Lymphocytes (Bld) [#/Vol] 1.7 103/mcL Normal 0.9 - 4.3 10^3/mcL AH Workflow SS Lymphocytes/100 WBC (Bld) 17.0 % Low 20.0 - 40.0 % AH Workflow SS MCH (RBC) [Entitic mass] 31.7 pg Normal 27.0 - 33.0 pg AH Workflow SS MCHC 33.5 G/dL Normal 32.0 - 36.0 G/dL AH Workflow SS MCV (RBC) [Entitic vol] 94.7 fL Normal 81.0 - 100.0 fL Workflow SS Monocytes (Bld) [#/Vol] 0.5 103/mcL Normal 0.1 - 1.4 10^3/mcL AH Workflow SS Monocytes/100 WBC (Bld) 4.8 % Normal 2.0 - 13.0 % AH Workflow SS Neutrophils (Bld) [#/Vol] 7.9 103/mcL Normal 2.3 - 8.1 10^3/mcL AH Workflow SS Neutrophils/100 WBC (Bld) 77.8 % High 50.0 - 75.0 % AH Workflow SS Platelet mean volume (Bld) [Entitic vol] 7.3 fL Normal 6.4 - 10.5 fL Workflow SS Platelets (Bld) [#/Vol] 201 103/mcL Normal 150 - 450 10^3/mcL Workflow SS Potassium [Moles/Vol] 4.2 mmol/L Normal 3.5 - 5.0 mEq/L ADM SS PT Coag (PPP) [Time] 14.6 s High 9.0 - 1 4.4 seconds [facility] SS Comment on above: Interpretive Data: E ffective 08/28/07, Protime results may be affected by some antibiotics (i.e. Ciprofloxacin, Azithromycin, Bactrim) which may potentiate the action of oral anticoagulants, with further increases in Protime/INR. PT International Ratio 1.3 ratio Invalid Interpretation Code [facility] SS Comment on above: Interpretive Data: Cindy briggs [place] (CHEST, 1991, 102:312S-25S) recommended therapeutic range for oral anticoagulant therapy is: LOW RISK: Prophylaxis of venous thrombosis INR: 2.0-3.0 Treatment of pulmonary embolism 2.0-3.0 Prevention of systemic embolism 2.0-3.0 HIGH RISK: Mechanical prosthetic valves 2.5-3.5 RBC (Bld) [#/Vol] 3.45 106/mcL Low 4.50 - 6.0 0 10^6/mcL AH Workflow SS Sodium [Moles/Vol] 144 mmol/L Normal 136 - 145 mEq/L ADM SS Urea nitrogen [Mass/Vol] 19.0 mg/dL Normal 8.0 - 22.0 mg/dL ADM SS Urea nitrogen/Creatinine [Mass ratio] 11.7 ratio Normal 10.0 - 22.0 ratio ADM SS WBC (Bld) [#/Vol] 10.1 103/mcL Normal 4.5 - 10.8 10^3/mcL Workflow SS PROon 08-01-2024 INR Coag (PPP) [Relative time] 1.3 {INR} Normal [facility] Comment on above: Result Comment: [employer] [place] (CHEST, 1991, 102:312S-25S) recommended therapeutic range for oral anticoagulant therapy is: LOW RISK: Prophylaxis of venous thrombosis INR: 2.0-3.0 Treatment of pulmonary embolism 2.0-3.0 Prevention of systemic embolism 2.0-3.0 HIGH RISK: Mechanical prosthetic valves 2.5-3.5 Performed By: #### T SH, FT3, JUANCARLOS, LD, FT4, ADIFF, GFR, ANEU, CBC, CMP #### [place] [id number] [address] [place] [address] PT Coag (PPP) [Time] 14.6 s High 9.0-14.4 [facility] Comment on above: Result Comment: Effe ctive 08/28/07, Protime results may be affected by some antibiotics (i.e. Ciprofloxacin, Azithromycin, Bactrim) which may potentiate the action of oral anticoagulants, with further increases in Protime/INR. Performed By: #### T SH, FT3, JUANCARLOS, LD, FT4, ADIFF, GFR, ANEU, CBC, CMP #### [address] [address] .Auto Diffon 07-31-2024 Basophil, Absolute 0.0 10 3/mcL Normal 0.0-0.3 [facility] Comment on above: Performed By: #### T SH, FT3, JUANCARLOS, LD, FT4, ADIFF, GFR, ANEU, CBC, CMP #### [address] [address] Basophils/100 WBC (Bld) 0.2 % Normal 0.0-2.5 [facility] Comment on above: Performed By: #### T SH, FT3, JUANCARLOS, LD, FT4, ADIFF, GFR, ANEU, CBC, CMP #### [address] [address] Eosinophil, Absolute 0.0 10 3/mcL Normal 0.0-0.7 [facility] Comment on above: Performed By: #### T SH, FT3, JUANCARLOS, LD, FT4, ADIFF, GFR, ANEU, CBC, CMP #### [address] [address] Eosinophils/100 WBC (Bld) 0.0 % Normal 0.0-6.0 [facility] Comment on above: Performed By: #### T SH, FT3, JUANCARLOS, LD, FT4, ADIFF, GFR, ANEU, CBC, CMP #### [address] [address] Lymphocyte, Absolute 0.7 10 3/mcL Low 0.9-4.3 [facility] Comment on above: Performed By: #### T SH, FT3, JUANCARLOS, LD, FT4, ADIFF, GFR, ANEU, CBC, CMP #### [address] [address] Lymphocytes/100 WBC (Bld) 6.4 % Low 20.0-40.0 [facility] Comment on above: Performed By: #### T SH, FT3, JUANCARLOS, LD, FT4, ADIFF, GFR, ANEU, CBC, CMP #### [address] [address] Monocyte, Absolute 0.1 10 3/mcL Normal 0.1-1.4 [facility] Comment on above: Performed By: #### T SH, FT3, JUANCARLOS, LD, FT4, ADIFF, GFR, ANEU, CBC, CMP #### [address] [address] Monocytes/100 WBC (Bld) 1.1 % Low 2.0-13.0 [facility] Comment on above: Performed By: #### T SH, FT3, JUANCARLOS, LD, FT4, ADIFF, GFR, ANEU, CBC, CMP #### [address] [address] Neutrophils/100 WBC (Bld) 92.3 % High 50.0-75.0 [facility] Comment on above: Performed By: #### T SH, FT3, JUANCARLOS, LD, FT4, ADIFF, GFR, ANEU, CBC, CMP #### [place] [id number] .GFRon 07-31-2024 Estimated Glomerular Filtration Rate 57 ml/min/1.73sqm Normal [facility] Comment on above: Result Comment: Stages of Chronic Kidney Disease (CKD) Stage Description eGFR(ml/min/1.73 sq.m.) CKD 1 Normal kidney function or >=90 normal kindney function with possible kidney damage (ex. Proteinuria) CKD 2 Kidney damage with mild loss 60-89 of kidney function CKD 3a Mild to moderate loss of kidney 45-59 function CKD 3b Moderate to severe loss of 30-44 of kindey function CKD 4 Severe loss of kidney function 15-29 CKD 5 Kidney failure <15 Note: (go live 2024) the eGFR calculation was updated to the 2020 CKD-EPI creatinine equation without a race factor to calculate the eGFR results. Performed By: #### T SH, FT3, JUANCARLOS, LD, FT4, ADIFF, GFR, ANEU, CBC, CMP #### [place] [id number] .NEUABSon 07-31-2024 Neutrophil, Absolute 9.7 10 3/mcL High 2.3-8.1 [facility] Comment on above: Performed By: #### T SH, FT3, JUANCARLOS, LD, FT4, ADIFF, GFR, ANEU, CBC, CMP #### [address] [id number] [facility]20[facility] BUN/Creatinine Ratio 9.8 ratio Low 10.0-22.0 [facility] Comment on above: Performed By: #### T SH, FT3, JUANCARLOS, LD, FT4, ADIFF, GFR, ANEU, CBC, CMP #### [place] [id number] Calcium [Mass/Vol] 8.8 mg/dL Normal 8.7-10.4 [facility] Comment on above: Performed By: #### T SH, FT3, JUANCARLOS, LD, FT4, ADIFF, GFR, ANEU, CBC, CMP #### [place] [id number] Chloride [Moles/Vol] 111 mmol/L High 98-110 [facility] Comment on above: Performed By: #### T SH, FT3, JUANCARLOS, LD, FT4, ADIFF, GFR, ANEU, CBC, CMP #### [place] [id number] CO2 [Moles/Vol] 24 mmol/L Normal 22-32 [facility] Comment on above: Performed By: #### T SH, FT3, JUANCARLOS, LD, FT4, ADIFF, GFR, ANEU, CBC, CMP #### [place] [id number] Creatinine [Mass/Vol] 1.53 mg/dL High 0.60-1.40 [facility] Comment on above: Result Comment: Test ing performed on [employer] analyzer using enzymatic creatinine methodology. Performed By: #### T SH, FT3, JUANCARLOS, LD, FT4, ADIFF, GFR, ANEU, CBC, CMP #### [place] [address] Electrolyte Balance 4.0 mEq/L Normal 4.0-15.0 [facility] Comment on above: Performed By: #### T SH, FT3, JUANCARLOS, LD, FT4, ADIFF, GFR, ANEU, CBC, CMP #### [address] [address] Glucose [Mass/Vol] 114 mg/dL High 70-110 [facility] Comment on above: Performed By: #### T SH, FT3, JUANCARLOS, LD, FT4, ADIFF, GFR, ANEU, CBC, CMP #### [address] [address] Potassium [Moles/Vol] 5.8 mmol/L High 3.5-5.0 [facility] Comment on above: Performed By: #### T SH, FT3, JUANCARLOS, LD, FT4, ADIFF, GFR, ANEU, CBC, CMP #### [place] [id number] Sodium [Moles/Vol] 139 mmol/L Normal 136-145 [facility] Comment on above: Performed By: #### T SH, FT3, JUANCARLOS, LD, FT4, ADIFF, GFR, ANEU, CBC, CMP #### [place] [id number] Urea nitrogen [Mass/Vol] 15.0 mg/dL Normal 8.0-22.0 [facility] Comment on above: Performed By: #### T SH, FT3, JUANCARLOS, LD, FT4, ADIFF, GFR, ANEU, CBC, CMP #### [address] [address] CBCon 07-31-2024 Erythrocyte distribution width (RBC) [Ratio] 16.5 % High 11.5-15.5 [facility] Comment on above: Performed By: #### T SH, FT3, JUANCARLOS, LD, FT4, ADIFF, GFR, ANEU, CBC, CMP #### [place] [id number] Hematocrit (Bld) [Volume fraction] 41.1 % Normal 40.0-52.0 [facility] Comment on above: Performed By: #### T SH, FT3, JUANCARLOS, LD, FT4, ADIFF, GFR, ANEU, CBC, CMP #### [address] [address] Hgb 13.9 G/dL Normal 13.0-17.5 [facility] Comment on above: Performed By: #### T SH, FT3, JUANCARLOS, LD, FT4, ADIFF, GFR, ANEU, CBC, CMP #### [place] [address] MCH (RBC) [Entitic mass] 32.4 pg Normal 27.0-33.0 [facility] Comment on above: Performed By: #### T SH, FT3, JUANCARLOS, LD, FT4, ADIFF, GFR, ANEU, CBC, CMP #### [place] [address] MCHC 33.8 G/dL Normal 32.0-36.0 [facility] Comment on above: Performed By: #### T SH, FT3, JUANCARLOS, LD, FT4, ADIFF, GFR, ANEU, CBC, CMP #### [place] [address] MCV (RBC) [Entitic vol] 95.9 fL Normal 81.0-100.0 [facility] Comment on above: Performed By: #### T SH, FT3, JUANCARLOS, LD, FT4, ADIFF, GFR, ANEU, CBC, CMP #### [place] [address] Platelet 243 10 3/mcL Normal 150-450 [facility] Comment on above: Performed By: #### T SH, FT3, JUANCARLOS, LD, FT4, ADIFF, GFR, ANEU, CBC, CMP #### [place] [address] Platelet mean volume (Bld) [Entitic vol] 7.3 fL Normal 6.4-10.5 [facility] Comment on above: Performed By: #### T SH, FT3, JUANCARLOS, LD, FT4, ADIFF, GFR, ANEU, CBC, CMP #### [place] [address] RBC 4.29 10 6/mcL Low 4.50-6.00 [facility] Comment on above: Performed By: #### T SH, FT3, JUANCARLOS, LD, FT4, ADIFF, GFR, ANEU, CBC, CMP #### [address] [address] WBC 10.5 10 3/mcL Normal 4.5-10.8 [facility] Comment on above: Performed By: #### T SH, FT3, JUANCARLOS, LD, FT4, ADIFF, GFR, ANEU, CBC, CMP #### [address] [address] Amauri 07-31-2024 Potassium [Moles/Vol] 4.5 mmol/L Normal 3.5-5.0 [facility] Comment on above: Performed By: #### T SH, FT3, JUANCARLOS, LD, FT4, ADIFF, GFR, ANEU, CBC, CMP #### [address] [address] LABORATORYOrdered By: SYSTEM SYSTEM on 07-31-2024 Potassium [Moles/Vol] 4.5 mmol/L Normal 3.5 - 5.0 mEq/L AH ADM SS Basophils (Bld) [#/Vol] 0.0 103/mcL Normal 0.0 - 0.3 10^3/mcL Workflow SS Basophils/100 WBC (Bld) 0.2 % Normal 0.0 - 2.5 % Workflow SS Calcium [Mass/Vol] 8.8 mg/dL Normal 8.7 - 10. 4 mg/dL ADM SS Chloride [Moles/Vol] 111 mmol/L High 98 - 11 0 mEq/L ADM SS CO2 [Moles/Vol] 24 mmol/L Normal 22 - 32 mEq/L ADM SS Creatinine [Mass/Vol] 1.53 mg/dL High 0.60 - 1.40 mg/dL ADM SS Comment on above: Interpretive Data: T esting performed on [employer] analyzer using enzymatic creatinine methodology. Electrolyte Balance 4.0 mEq/L Normal 4.0 - 15 .0 mEq/L AH ADM SS Eosinophils (Bld) [#/Vol] 0.0 103/mcL Normal 0.0 - 0.7 10^3/mcL AH Workflow SS Eosinophils/100 WBC (Bld) 0.0 % Normal 0.0 - 6.0 % AH Workflow SS Erythrocyte distribution width (RBC) [Ratio] 16.5 % High 11.5 - 15.5 % AH Workflow SS Estimated Glomerular Filtration Rate 57 ml/min/1.73sqm Invalid Interpretation Code Chemistry S Comment on above: Interpretive Data: Stages of Chronic Kidney Disease (CKD) Stage Description eGFR(ml/min/1.73 sq.m.) CKD 1 Normal kidney function or >=90 normal kindney function with possible kidney damage (ex. Proteinuria) CKD 2 Kidney damage with mild loss 60-89 of kidney function CKD 3a Mild to moderate loss of kidney 45-59 function CKD 3b Moderate to severe loss of 30-44 of kindey function CKD 4 Severe loss of kidney function 15-29 CKD 5 Kidney failure <15 Note: (go live 2024) the eGFR calculation was updated to the 2020 CKD-EPI creatinine equation without a race factor to calculate the eGFR results. Glucose [Mass/Vol] 114 mg/dL High 70 - 110 mg/dL ADM SS Hematocrit (Bld) [Volume fraction] 41.1 % Normal 40.0 - 52.0 % AH Workflow SS Hemoglobin (Bld) [Mass/Vol] 13.9 G/dL Normal 13.0 - 17.5 G/dL AH Workflow SS Lymphocytes (Bld) [#/Vol] 0.7 103/mcL Low 0.9 - 4.3 10^3/mcL Workflow SS Lymphocytes/100 WBC (Bld) 6.4 % Low 20.0 - 40.0 % AH Workflow SS MCH (RBC) [Entitic mass] 32.4 pg Normal 27.0 - 33.0 pg AH Workflow SS MCHC 33.8 G/dL Normal 32.0 - 36.0 G/dL AH Workflow SS MCV (RBC) [Entitic vol] 95.9 fL Normal 81.0 - 100.0 fL AH Workflow SS Monocytes (Bld) [#/Vol] 0.1 103/mcL Normal 0.1 - 1.4 10^3/mcL Workflow SS Monocytes/100 WBC (Bld) 1.1 % Low 2.0 - 13.0 % AH Workflow SS Neutrophils (Bld) [#/Vol] 9.7 103/mcL High 2.3 - 8.1 10^3/mcL AH Workflow SS Neutrophils/100 WBC (Bld) 92.3 % High 50.0 - 75.0 % AH Workflow SS Platelet mean volume (Bld) [Entitic vol] 7.3 fL Normal 6.4 - 10.5 fL AH Workflow SS Platelets (Bld) [#/Vol] 243 103/mcL Normal 150 - 450 10^3/mcL AH Workflow SS Potassium [Moles/Vol] 5.8 mmol/L High 3.5 - 5.0 mEq/L AH ADM SS RBC (Bld) [#/Vol] 4.29 106/mcL Low 4.50 - 6.0 0 10^6/mcL AH Workflow SS Sodium [Moles/Vol] 139 mmol/L Normal 136 - 145 mEq/L AH ADM SS Urea nitrogen [Mass/Vol] 15.0 mg/dL Normal 8.0 - 22.0 mg/dL AH ADM SS Urea nitrogen/Creatinine [Mass ratio] 9.8 ratio Low 10.0 - 22.0 ratio AH ADM SS WBC (Bld) [#/Vol] 10.5 103/mcL Normal 4.5 - 10.8 10^3/mcL AH Workflow SS .GFRon 07-30-2024 Estimated Glomerular Filtration Rate 67 ml/min/1.73sqm Normal [facility] Comment on above: Result Comment: Stages of Chronic Kidney Disease (CKD) Stage Description eGFR(ml/min/1.73 sq.m.) CKD 1 Normal kidney function or >=90 normal kindney function with possible kidney damage (ex. Proteinuria) CKD 2 Kidney damage with mild loss 60-89 of kidney function CKD 3a Mild to moderate loss of kidney 45-59 function CKD 3b Moderate to severe loss of 30-44 of kindey function CKD 4 Severe loss of kidney function 15-29 CKD 5 Kidney failure <15 Note: (go live 2024) the eGFR calculation was updated to the 2020 CKD-EPI creatinine equation without a race factor to calculate the eGFR results. Performed By: #### T SH, FT3, JUANCARLOS, LD, FT4, ADIFF, GFR, ANEU, CBC, CMP #### [address] [address] APTTon 07-30-2024 aPTT Coag (Bld) [Time] 31.2 s Normal 25.0-35.0 [facility] Comment on above: Result Comment: For Heparin anticoagulation therapy, the recommended therapeutic range is: 54-77 seconds (APTT Correlation with Anti-Xa therapeutic range of 0.3-0.7 units/ml). PLEASE REFERENCE THE PHARMACY PROTOCOL FOR DOSING. Performed By: #### T SH, FT3, JUANCARLOS, LD, FT4, ADIFF, GFR, ANEU, CBC, CMP #### [address] [address] BMPon 07-30-2024 BUN/Creatinine Ratio 10.4 ratio Normal 10.0-22.0 [facility] Comment on above: Performed By: #### T SH, FT3, JUANCARLOS, LD, FT4, ADIFF, GFR, ANEU, CBC, CMP #### [place] [address] Calcium [Mass/Vol] 9.1 mg/dL Normal 8.7-10.4 [facility] Comment on above: Performed By: #### T SH, FT3, JUANCARLOS, LD, FT4, ADIFF, GFR, ANEU, CBC, CMP #### [place] [id number] Chloride [Moles/Vol] 110 mmol/L Normal 98-110 [facility] Comment on above: Performed By: #### T SH, FT3, JUANCARLOS, LD, FT4, ADIFF, GFR, ANEU, CBC, CMP #### [place] [id number] CO2 [Moles/Vol] 22 mmol/L Normal 22-32 [facility] Comment on above: Performed By: #### T SH, FT3, JUANCARLOS, LD, FT4, ADIFF, GFR, ANEU, CBC, CMP #### [place] [address] Creatinine [Mass/Vol] 1.34 mg/dL Normal 0.60-1.40 [facility] Comment on above: Result Comment: Test ing performed on [employer] analyzer using enzymatic creatinine methodology. Performed By: #### T SH, FT3, JUANCARLOS, LD, FT4, ADIFF, GFR, ANEU, CBC, CMP #### [place] [address] Electrolyte Balance 9.0 mEq/L Normal 4.0-15.0 [facility] Comment on above: Performed By: #### T SH, FT3, JUANCARLOS, LD, FT4, ADIFF, GFR, ANEU, CBC, CMP #### [place] [id number] Glucose [Mass/Vol] 96 mg/dL Normal 70-110 [facility] Comment on above: Performed By: #### T SH, FT3, JUANCARLOS, LD, FT4, ADIFF, GFR, ANEU, CBC, CMP #### [place] [id number] Potassium [Moles/Vol] 3.8 mmol/L Normal 3.5-5.0 [facility] Comment on above: Performed By: #### T SH, FT3, JUANCARLOS, LD, FT4, ADIFF, GFR, ANEU, CBC, CMP #### [place] [id number] Sodium [Moles/Vol] 141 mmol/L Normal 136-145 [facility] Comment on above: Performed By: #### T SH, FT3, JUANCARLOS, LD, FT4, ADIFF, GFR, ANEU, CBC, CMP #### [place] [id number] Urea nitrogen [Mass/Vol] 14.0 mg/dL Normal 8.0-22.0 [facility] Comment on above: Performed By: #### T SH, FT3, JUANCARLOS, LD, FT4, ADIFF, GFR, ANEU, CBC, CMP #### [place] [id number] [facility]1983on 07-30-2024 Fibrinogen 488 mg/dL Normal 250-560 [facility] Comment on above: Performed By: #### T SH, FT3, JUANCARLOS, LD, FT4, ADIFF, GFR, ANEU, CBC, CMP #### [place] [id number] [facility] 07-30-2024 Hematocrit (Bld) [Volume fraction] 44.2 % Normal 40.0-52.0 [facility] Comment on above: Performed By: #### T SH, FT3, JUANCARLOS, LD, FT4, ADIFF, GFR, ANEU, CBC, CMP #### [place] [id number] [address] [place] [address] Hgb 14.7 G/dL Normal 13.0-17.5 [facility] Comment on above: Performed By: #### T SH, FT3, JUANCARLOS, LD, FT4, ADIFF, GFR, ANEU, CBC, CMP #### [address] [address] LABORATORYOrdered By: SYSTEM SYSTEM on 07-30-2024 Hematocrit (Bld) [Volume fraction] 44.2 % Normal 40.0 - 52.0 % Workflow SS Hemoglobin (Bld) [Mass/Vol] 14.7 G/dL Normal 13.0 - 17.5 G/dL Workflow SS aPTT Coag (Bld) [Time] 31.2 s Normal 25.0 - 35.0 seconds [facility] SS Comment on above: Interpretive Data: F or Heparin anticoagulation therapy, the recommended therapeutic range is: 54-77 seconds (APTT Correlation with Anti-Xa therapeutic range of 0.3-0.7 units/ml). PLEASE REFERENCE THE PHARMACY PROTOCOL FOR DOSING. Calcium [Mass/Vol] 9.1 mg/dL Normal 8.7 - 10. 4 mg/dL ADM SS Chloride [Moles/Vol] 110 mmol/L Normal 98 - 11 0 mEq/L AH ADM SS CO2 [Moles/Vol] 22 mmol/L Normal 22 - 32 mEq/L ADM SS Creatinine [Mass/Vol] 1.34 mg/dL Normal 0.60 - 1.40 mg/dL AH ADM SS Comment on above: Interpretive Data: T esting performed on [employer] analyzer using enzymatic creatinine methodology. Electrolyte Balance 9.0 mEq/L Normal 4.0 - 15 .0 mEq/L ADM SS Estimated Glomerular Filtration Rate 67 ml/min/1.73sqm Invalid Interpretation Code Chemistry S Comment on above: Interpretive Data: Stages of Chronic Kidney Disease (CKD) Stage Description eGFR(ml/min/1.73 sq.m.) CKD 1 Normal kidney function or >=90 normal kindney function with possible kidney damage (ex. Proteinuria) CKD 2 Kidney damage with mild loss 60-89 of kidney function CKD 3a Mild to moderate loss of kidney 45-59 function CKD 3b Moderate to severe loss of 30-44 of kindey function CKD 4 Severe loss of kidney function 15-29 CKD 5 Kidney failure <15 Note: (go live 2024) the eGFR calculation was updated to the 2020 CKD-EPI creatinine equation without a race factor to calculate the eGFR results. Fibrinogen 488 mg/dL Normal 250 - 560 mg/dL [facility] SS Glucose [Mass/Vol] 96 mg/dL Normal 70 - 110 mg/dL ADM SS Platelets (Bld) [#/Vol] 234 103/mcL Normal 150 - 450 10^3/mcL Workflow SS PT Coag (PPP) [Time] 13.2 s Normal 9.0 - 1 4.4 seconds [facility] Comment on above: Interpretive Data: E ffective 08/28/07, Protime results may be affected by some antibiotics (i.e. Ciprofloxacin, Azithromycin, Bactrim) which may potentiate the action of oral anticoagulants, with further increases in Protime/INR. PT International Ratio 1.2 ratio Invalid Interpretation Code [facility] Comment on above: Interpretive Data: Cindy briggs [employer] (CHEST, 1991, 102:312S-25S) recommended therapeutic range for oral anticoagulant therapy is: LOW RISK: Prophylaxis of venous thrombosis INR: 2.0-3.0 Treatment of pulmonary embolism 2.0-3.0 Prevention of systemic embolism 2.0-3.0 HIGH RISK: Mechanical prosthetic valves 2.5-3.5 Sodium [Moles/Vol] 141 mmol/L Normal 136 - 145 mEq/L ADM SS Urea nitrogen [Mass/Vol] 14.0 mg/dL Normal 8.0 - 22.0 mg/dL ADM SS Urea nitrogen/Creatinine [Mass ratio] 10.4 ratio Normal 10.0 - 22.0 ratio ADM SS PLTon 07-30-2024 Platelet 234 10 3/mcL Normal 150-450 [facility] Comment on above: Performed By: #### T SH, FT3, JUANCARLOS, LD, FT4, ADIFF, GFR, ANEU, CBC, CMP #### [address] [address] PROon 07-30-2024 INR Coag (PPP) [Relative time] 1.2 {INR} Normal [facility] Comment on above: Result Comment: The [place] (CHEST, 1991, 102:312S-25S) recommended therapeutic range for oral anticoagulant therapy is: LOW RISK: Prophylaxis of venous thrombosis INR: 2.0-3.0 Treatment of pulmonary embolism 2.0-3.0 Prevention of systemic embolism 2.0-3.0 HIGH RISK: Mechanical prosthetic valves 2.5-3.5 Performed By: #### T SH, FT3, JUANCARLOS, LD, FT4, ADIFF, GFR, ANEU, CBC, CMP #### [place] [id number] [address] [place] [address] PT Coag (PPP) [Time] 13.2 s Normal 9.0-14.4 [facility] Comment on above: Result Comment: Effe ctive 08/28/07, Protime results may be affected by some antibiotics (i.e. Ciprofloxacin, Azithromycin, Bactrim) which may potentiate the action of oral anticoagulants, with further increases in Protime/INR. Performed By: #### T SH, FT3, JUANCARLOS, LD, FT4, ADIFF, GFR, ANEU, CBC, CMP #### [place] [id number] [address] [place] [address] LABORATORYOrdered By: SYSTEM SYSTEM on 07-27-2024 INR Coag (PPP) [Relative time] 1.2 {INR} Invalid Interpretation Code AO [facility] Comment on above: Interpretive Data: Cindy briggs [place] (CHEST, 1991, 102:312S-25S) recommended therapeutic range for oral anticoagulant therapy is: LOW RISK: Prophylaxis of venous thrombosis INR: 2.0-3.0 Treatment of pulmonary embolism 2.0-3.0 Prevention of systemic embolism 2.0-3.0 HIGH RISK: Mechanical prosthetic valves 2.5-3.5 PT Coag (PPP) [Time] 14.3 s Normal 9.0 - 1 4.4 seconds AO [facility] SS PROon 07-27-2024 PT Coag (PPP) [Time] 14.3 s Normal 9.0-14.4 [facility] Comment on above: Performed By: #### C VFLURV #### [facility] [address] [place], [place] [address] PT International Ratio 1.2 Normal [facility] Comment on above: Result Comment: The [place] [employer] (CHEST, 1992, 102:312S-25S) recommended therapeutic range for oral anticoagulant therapy is: LOW RISK: Prophylaxis of venous thrombosis INR: 2.0-3.0 Treatment of pulmonary embolism 2.0-3.0 Prevention of systemic embolism 2.0-3.0 HIGH RISK: Mechanical prosthetic valves 2.5-3.5 Performed By: #### C VFLURV #### [place] [address] UFENTSon 07-27-2024 Fentanyl (u) Negative Normal Negative [facility] Comment on above: Result Comment: Test ing has been performed FOR MEDICAL PURPOSES ONLY. Performed By: #### C VFLURV #### [place] [address] UOXYSon 07-27-2024 Oxycodone (u) Negative Normal Negative [facility] Comment on above: Result Comment: Test ing has been performed FOR MEDICAL PURPOSES ONLY. Performed By: #### C VFLURV #### [place] [address] .Auto Diffon 07-26-2024 Basophil, Absolute 0.1 10 3/mcL Normal 0.0-0.3 [facility] Comment on above: Performed By: #### ESTEFANY Ellis #### [place] [id number] Basophils/100 WBC (Bld) 1.0 % Normal 0.0-2.5 [facility] Comment on above: Performed By: #### RADHA EllisMICAO #### [address] [address] Eosinophil, Absolute 0.6 10 3/mcL Normal 0.0-0.7 [facility] Comment on above: Performed By: #### RADHA EllisMICINEZ #### [address] [address] Eosinophils/100 WBC (Bld) 5.7 % Normal 0.0-6.0 [facility] Comment on above: Performed By: #### ESTEFANY Ellis #### [address] [address] Lymphocyte, Absolute 1.6 10 3/mcL Normal 0.9-4.3 [facility] Comment on above: Performed By: #### ESTEFANY Ellis #### [address] [address] Lymphocytes/100 WBC (Bld) 15.7 % Low 20.0-40.0 [facility] Comment on above: Performed By: #### JANET EllisAO #### [address] [address] Monocyte, Absolute 0.8 10 3/mcL Normal 0.1-1.4 [facility] Comment on above: Performed By: #### ESTEFANY Ellis #### [address] [address] Monocytes/100 WBC (Bld) 8.5 % Normal 2.0-13.0 [facility] Comment on above: Performed By: #### ESTEFANY Ellis #### [address] [address] Neutrophils/100 WBC (Bld) 69.1 % Normal 50.0-75.0 [facility] Comment on above: Performed By: #### ESTEFANY Ellis #### [address] [address] .GFRon 07-26-2024 Estimated Glomerular Filtration Rate 39 ml/min/1.73sqm Normal [facility] Comment on above: Result Comment: Stages of Chronic Kidney Disease (CKD) Stage Description eGFR(ml/min/1.73 sq.m.) CKD 1 Normal kidney function or >=90 normal kindney function with possible kidney damage (ex. Proteinuria) CKD 2 Kidney damage with mild loss 60-89 of kidney function CKD 3a Mild to moderate loss of kidney 45-59 function CKD 3b Moderate to severe loss of 30-44 of kindey function CKD 4 Severe loss of kidney function 15-29 CKD 5 Kidney failure <15 Note: (go live 2024) the eGFR calculation was updated to the 2020 CKD-EPI creatinine equation without a race factor to calculate the eGFR results. Performed By: #### C VFLURV #### [place] [address] .MDWon 07-26-2024 Monocyte Distribution Width 16.89 Normal 0.00-20.00 [facility] Comment on above: Result Comment: For ED adult patients suspected of sepsis, MDW<=20.0 does not rule out sepsis or risk of sepsis Performed By: #### ESTEFANY Ellis #### [place] [address] .NEUABSon 07-26-2024 Neutrophil, Absolute 6.8 10 3/mcL Normal 2.3-8.1 [facility] Comment on above: Performed By: #### ESTEFANY Ellis #### [place] [address] ACETAon 07-26-2024 Acetaminophen [Mass/Vol] 0.0 ug/mL Low 10.0-30.0 [facility] Comment on above: Performed By: #### ESTEFANY Ellis #### [place] [address] Timmy 07-26-2024 Ethanol Level <3 Normal [facility] Comment on above: Performed By: #### ESTEFANY Ellis #### [place] [address] CBCon 07-26-2024 Erythrocyte distribution width (RBC) [Ratio] 16.6 % High 11.5-15.5 [facility] Comment on above: Performed By: #### ESTEFANY Ellis #### [place] [address] Hematocrit (Bld) [Volume fraction] 47.9 % Normal 40.0-52.0 [facility] Comment on above: Performed By: #### ESTEFANY Ellis #### [place] [address] Hgb 16.2 G/dL Normal 13.0-17.5 [facility] Comment on above: Performed By: #### ESTEFANY Ellis #### [address] [address] MCH (RBC) [Entitic mass] 31.6 pg Normal 27.0-33.0 [facility] Comment on above: Performed By: #### Nabil Valenzuela UAIGNACIO #### [address] [address] MCHC 33.8 G/dL Normal 32.0-36.0 [facility] Comment on above: Performed By: #### ESTEFANY Ellis #### [address] [address] MCV (RBC) [Entitic vol] 93.5 fL Normal 81.0-100.0 [facility] Comment on above: Performed By: #### ESTEFANY Ellis #### [address] [address] Platelet 237 10 3/mcL Normal 150-450 [facility] Comment on above: Performed By: #### ESTEFANY Ellis #### [address] [address] Platelet mean volume (Bld) [Entitic vol] 7.4 fL Normal 6.4-10.5 [facility] Comment on above: Performed By: #### ESTEFANY Ellis #### [address] [address] RBC 5.12 10 6/mcL Normal 4.50-6.00 [facility] Comment on above: Performed By: #### ESTEFANY Ellis #### [address] [address] WBC 9.9 10 3/mcL Normal 4.5-10.8 [facility] Comment on above: Performed By: #### ESTEFANY Ellis #### [address] [address] CMPon 07-26-2024 Albumin Level 3.6 G/dL Normal 3.5-5.0 [facility] Comment on above: Performed By: #### C VFLURV #### [address] [address] Albumin/Globulin [Mass ratio] 0.9 {ratio} Low 1.1-2.5 [facility] Comment on above: Performed By: #### C VFLURV #### [address] [address] ALP [Catalytic activity/Vol] 94 U/L Normal 40-135 [facility] Comment on above: Performed By: #### C VFLURV #### [address] [address] ALT [Catalytic activity/Vol] 29 U/L Normal 16-63 [facility] Comment on above: Performed By: #### C VFLURV #### [address] [address] AST [Catalytic activity/Vol] 16 U/L Normal 10-40 [facility] Comment on above: Performed By: #### C VFLURV #### [address] [address] Bili Total 0.7 mg/dL Normal 0.2-1.0 [facility] Comment on above: Result Comment: Use of this assay is not recommended for patients undergoing treatment with eltrombopag due to the potential for falsely elevated results. Performed By: #### C VFLURV #### [address] [address] BUN/Creatinine Ratio 11 ratio Normal 7-27 [facility] Comment on above: Performed By: #### C VFLURV #### [address] [address] Calcium [Mass/Vol] 9.1 mg/dL Normal 8.4-10.2 [facility] Comment on above: Performed By: #### C VFLURV #### [address] [address] Chloride [Moles/Vol] 103 mmol/L Normal 98-107 [facility] Comment on above: Performed By: #### C VFLURV #### [address] [address] CO2 [Moles/Vol] 27 mmol/L Normal 22-29 [facility] Comment on above: Performed By: #### C VFLURV #### [address] [address] Creatinine [Mass/Vol] 2.09 mg/dL High 0.67-1.17 [facility] Comment on above: Performed By: #### C VFLURV #### [address] [address] Electrolyte Balance 9.0 mEq/L Normal 4.0-15.0 [facility] Comment on above: Performed By: #### C VFLURV #### [address] [address] Globulin 3.9 G/dL Normal 2.7-4.4 [facility] Comment on above: Performed By: #### C VFLURV #### [address] [address] Glucose [Mass/Vol] 126 mg/dL High 70-105 [facility] Comment on above: Performed By: #### C VFLURV #### [address] [address] Potassium [Moles/Vol] 3.5 mmol/L Normal 3.5-5.1 [facility] Comment on above: Performed By: #### C VFLURV #### [address] [address] Sodium [Moles/Vol] 139 mmol/L Normal 136-145 [facility] Comment on above: Performed By: #### C VFLURV #### [address] [address] Total Protein 7.5 G/dL Normal 6.4-8.2 [facility] Comment on above: Performed By: #### C VFLURV #### [address] [address] Urea nitrogen [Mass/Vol] 22 mg/dL High 7-18 [facility] Comment on above: Performed By: #### C VFLURV #### [place] [id number] CVFLURVon 07-26-2024 FLU A PCR Negative Normal Negative [facility] Comment on above: Performed By: #### C VFLURV #### [place] [address] FLU B PCR Negative Normal Negative [facility] Comment on above: Performed By: #### C VFLURV #### [place] [address] RSV PCR Negative Normal Negative [facility] Comment on above: Performed By: #### C VFLURV #### [place] [address] SARS-CoV-2 (COVID-19) RNA GILMAR+probe Ql (Unsp spec) Negative Normal Negative [facility] Comment on above: Result Comment: Resu lts from the Xpert Xpress CoV-2/Flu/RSV plus test should be correlated with the clinical history, epidemiological data, and other data available to the clinical evaluating the patient. Performance of the Xpert Xpress CoV-2/Flu/RSV plus test has only been established in nasopharyngeal swab specimen. Erroneous test results might occur from improper specimen collection, failure to follow the recommended sample collection, handling and storage procedures, technical error, or sample mix-up. False negative results may occur if a virus is present at a level below the analytical limit of detection. Viral nucleic acid may persist in vivo, independent of virus viability. Detection of analyte target(s) does not imply that the corresponding virus(es) are infectious or are the causative agents for clinical symptoms. Recent patient exposure to FluMist or other live attenuated influenza vaccines may cause inaccurate positive results. Performed By: #### C VFLURV #### [place] [address] LABORATORYOrdered By: Carmen Rome on 07-26-2024 Acetaminophen [Mass/Vol] 0.0 ug/mL Low 10.0 - 30.0 mcg/mL AO Chemistry S Amphetamines Screen Ql (U) Negative *NA* (6/13/25 8:36 PM) Invalid Interpretation Code Negative AO ADM SS Appearance (U) Clear (07/26/24 8:36 PM) Normal Clear AO Auto Urine SS Barbiturates Screen Ql (U) Negative *NA* (07/26/24 8:36 PM) Invalid Interpretation Code Negative AO ADM SS Benzodiazepines Ql (U) Negative *NA* (07/26/24 8:36 PM) Invalid Interpretation Code Negative AO ADM SS Benzoylecgonine Screen Ql (U) Negative *NA* (07/26/24 8:36 PM) Invalid Interpretation Code Negative AO ADM SS Bilirubin Ql (U) Small *ABN* (07/26/24 8:36 PM) Invalid Interpretation Code Negative AO Auto Urine SS Cannabinoids Screen Ql (U) Positive *ABN* (07/26/24 8:36 PM) Invalid Interpretation Code Negative AO ADM SS Color (U) Yellow (07/26/24 8:36 PM) Normal AO Auto Urine SS FLUAV RNA GILMAR+probe Ql (Resp) Negative (07/26/24 8:36 PM) Normal Negative AO Auto Urine SS FLUBV RNA GILMAR+probe Ql (Resp) Negative (07/26/24 8:36 PM) Normal Negative AO Auto Urine SS Glucose Test strip (U) [Mass/Vol] 500 mg/dL Invalid Interpretation Code Negative AO Auto Urine SS Hemoglobin Auto test strip (U) [Mass/Vol] Negative (07/26/24 8:36 PM) Normal Negative AO Auto Urine SS Ketones Ql (U) Trace mg/dL Invalid Interpretation Code Negative AO Auto Urine SS Methadone Screen Ql (U) Negative *NA* (07/26/24 8:36 PM) Invalid Interpretation Code Negative AO ADM SS Opiates Screen Ql (U) Negative *NA* (07/26/24 8:36 PM) Invalid Interpretation Code Negative AO ADM SS Phencyclidine Ql (U) Negative *NA* (07/26/24 8:36 PM) Invalid Interpretation Code Negative AO ADM SS RSV RNA GILMAR+probe Ql (Resp) Negative (07/26/24 8:36 PM) Normal Negative AO Auto Urine SS SARS-CoV-2 (COVID-19) RNA GILMAR+probe Ql (Resp) Negative 8 (07/26/24 8:36 PM) Normal Negative AO Auto Urine SS Comment on above: Interpretive Data: R esults from the Xpert Xpress CoV-2/Flu/RSV plus test should be correlated with the clinical history, epidemiological data, and other data available to the clinical evaluating the patient. Performance of the Xpert Xpress CoV-2/Flu/RSV plus test has only been established in nasopharyngeal swab specimen. Erroneous test results might occur from improper specimen collection, failure to follow the recommended sample collection, handling and storage procedures, technical error, or sample mix-up. False negative results may occur if a virus is present at a level below the analytical limit of detection. Viral nucleic acid may persist in vivo, independent of virus viability. Detection of analyte target(s) does not imply that the corresponding virus(es) are infectious or are the causative agents for clinical symptoms. Recent patient exposure to FluMist or other live attenuated influenza vaccines may cause inaccurate positive results. UA Leuk Est Negative (07/26/24 8:36 PM) Normal Negative AO Auto Urine SS UA Nitrite Negative (07/26/24 8:36 PM) Normal Negative AO Auto Urine SS UA pH 6.0 (07/26/24 8:36 PM) Normal 5.0 - 8.0 AO Auto Urine SS UA Protein Negative Normal Negative AO Auto Urine SS UA Spec Grav 1.015 (07/26/24 8:36 PM) Normal 1.015-1.025 AO Auto Urine SS UA Specimen Type Void (07/26/24 8:36 PM) Normal AO Auto Urine SS UA Urobilinogen 0.2 E.U./dL Normal 0.2-1.0 AO Auto Urine SS Urine Drugs screened: See Below 6 (07/26/24 8:36 PM) Normal AO Chemistry S Comment on above: Interpretive Data: T his drug screen is a presumptive screening only. No confirmation will be performed unless requested. Drugs screened include: Threshold Amphetamines/Methamphetamines 1,000 ng/mL Barbiturates 200 ng/mL Benzodiazepine metabolites 200 ng/mL Cannabinoids (THC metabolites) 50 ng/mL Cocaine 300 ng/mL Opiates 300 ng/mL Methadone 300 ng/mL Phencyclidine (PCP) 25 ng/mL Testing has been performed FOR MEDICAL PURPOSES ONLY. LABORATORYOrdered By: SYSTEM SYSTEM on 07-26-2024 Albumin BCP dye [Mass/Vol] 3.6 G/dL Normal 3.5 - 5.0 G/dL AO ADM SS Albumin/Globulin [Mass ratio] 0.9 {ratio} Low 1.1 - 2.5 ratio AO ADM SS ALP [Catalytic activity/Vol] 94 U/L Normal 40 - 135 U/L AO ADM SS ALT With P-5'-P [Catalytic activity/Vol] 29 U/L Normal 16 - 63 U/L AO ADM SS AST With P-5'-P [Catalytic activity/Vol] 16 U/L Normal 10 - 40 U/L AO ADM SS Basophils (Bld) [#/Vol] 0.1 103/mcL Normal 0.0 - 0.3 10^3/mcL AO Workflow SS Basophils/100 WBC (Bld) 1.0 % Normal 0.0 - 2.5 % AO Workflow SS Bilirubin [Mass/Vol] 0.7 mg/dL Normal 0.2 - 1 .0 mg/dL AO ADM SS Comment on above: Interpretive Data: U se of this assay is not recommended for patients undergoing treatment with eltrombopag due to the potential for falsely elevated results. Calcium [Mass/Vol] 9.1 mg/dL Normal 8.4 - 10. 2 mg/dL AO ADM SS Chloride [Moles/Vol] 103 mmol/L Normal 98 - 10 7 mmol/L AO ADM SS CO2 [Moles/Vol] 27 mmol/L Normal 22 - 29 mmol/L AO ADM SS Creatinine [Mass/Vol] 2.09 mg/dL High 0.67 - 1.17 mg/dL AO ADM SS Electrolyte Balance 9.0 mEq/L Normal 4.0 - 15 .0 mEq/L AO ADM SS Eosinophil, Absolute 0.6 103/mcL Normal 0.0 - 0 .7 10^3/mcL AO Workflow SS Eosinophils/100 WBC (Bld) 5.7 % Normal 0.0 - 6.0 % AO Workflow SS Erythrocyte distribution width (RBC) [Ratio] 16.6 % High 11.5 - 15.5 % AO Workflow SS Estimated Glomerular Filtration Rate 39 ml/min/1.73sqm Invalid Interpretation Code AO Chemistry S Comment on above: Interpretive Data: Stages of Chronic Kidney Disease (CKD) Stage Description eGFR(ml/min/1.73 sq.m.) CKD 1 Normal kidney function or >=90 normal kindney function with possible kidney damage (ex. Proteinuria) CKD 2 Kidney damage with mild loss 60-89 of kidney function CKD 3a Mild to moderate loss of kidney 45-59 function CKD 3b Moderate to severe loss of 30-44 of kindey function CKD 4 Severe loss of kidney function 15-29 CKD 5 Kidney failure <15 Note: (go live 2024) the eGFR calculation was updated to the 2020 CKD-EPI creatinine equation without a race factor to calculate the eGFR results. Ethanol [Mass/Vol] mg/dL Invalid Interpretation Code AO ADM SS Globulin 3.9 G/dL Normal 2.7 - 4.4 G/dL AO ADM SS Glucose [Mass/Vol] 126 mg/dL High 70 - 105 mg/dL AO ADM SS Hematocrit (Bld) [Volume fraction] 47.9 % Normal 40.0 - 52.0 % AO Workflow SS Hemoglobin (Bld) [Mass/Vol] 16.2 G/dL Normal 13.0 - 17.5 G/dL AO Workflow SS Lymphocytes (Bld) [#/Vol] 1.6 103/mcL Normal 0.9 - 4.3 10^3/mcL AO Workflow SS Lymphocytes/100 WBC (Bld) 15.7 % Low 20.0 - 40.0 % AO Workflow SS MCH (RBC) [Entitic mass] 31.6 pg Normal 27.0 - 33.0 pg AO Workflow SS MCHC 33.8 G/dL Normal 32.0 - 36.0 G/dL AO Workflow SS MCV (RBC) [Entitic vol] 93.5 fL Normal 81.0 - 100.0 fL AO Workflow SS Monocyte distribution width Auto (Bld) [Entitic vol] 16.89 1 Normal 0.00 - 20.00 AO Workflow SS Comment on above: Result Comment: For ED adult patients suspected of sepsis, MDW<=20.0 does not rule out sepsis or risk of sepsis Monocytes (Bld) [#/Vol] 0.8 103/mcL Normal 0.1 - 1.4 10^3/mcL AO Workflow SS Monocytes/100 WBC (Bld) 8.5 % Normal 2.0 - 13.0 % AO Workflow SS Neutrophils (Bld) [#/Vol] 6.8 103/mcL Normal 2.3 - 8.1 10^3/mcL AO Workflow SS Neutrophils/100 WBC (Bld) 69.1 % Normal 50.0 - 75.0 % AO Workflow SS Platelet mean volume (Bld) [Entitic vol] 7.4 fL Normal 6.4 - 10.5 fL AO Workflow SS Platelets (Bld) [#/Vol] 237 103/mcL Normal 150 - 450 10^3/mcL AO Workflow SS Potassium [Moles/Vol] 3.5 mmol/L Normal 3.5 - 5.1 mmol/L AO ADM SS Protein [Mass/Vol] 7.5 G/dL Normal 6.4 - 8.2 G/dL AO ADM SS RBC (Bld) [#/Vol] 5.12 106/mcL Normal 4.50 - 6.0 0 10^6/mcL AO Workflow SS Salicylates [Mass/Vol] 3.7 mg/dL Normal 2.8 - 20.0 mg/dL AO ADM SS Sodium [Moles/Vol] 139 mmol/L Normal 136 - 145 mmol/L AO ADM SS Urea nitrogen [Mass/Vol] 22 mg/dL High 7 - 18 mg/dL AO ADM SS Urea nitrogen/Creatinine [Mass ratio] 11 ratio Normal 7 - 27 ratio AO ADM SS WBC (Bld) [#/Vol] 9.9 103/mcL Normal 4.5 - 10.8 10^3/mcL AO Workflow SS LABORATORYOrdered By: Domonique Luna on 07-26-2024 fentaNYL Screen Ql (U) Negative 2 *NA* (07/26/24 8:36 PM) Invalid Interpretation Code Negative ADM SS Comment on above: Interpretive Data: T esting has been performed FOR MEDICAL PURPOSES ONLY. oxyCODONE Ql (U) Negative 3 *NA* (07/26/24 8:36 PM) Invalid Interpretation Code Negative [facility] SS Comment on above: Interpretive Data: T esting has been performed FOR MEDICAL PURPOSES ONLY. SALon 07-26-2024 Salicylate Level 3.7 mg/dL Normal 2.8-20.0 [facility] Comment on above: Performed By: #### U A, UAMICAO #### [address] [address] UDRUGon 07-26-2024 Amphetamine (u) Negative Normal Negative [facility] Comment on above: Performed By: #### C VFLURV #### [address] [address] Barbiturate (u) Negative Normal Negative [facility] Comment on above: Performed By: #### C VFLURV #### [address] [address] Benzodiazepine (u) Negative Normal Negative [facility] Comment on above: Performed By: #### C VFLURV #### [address] [address] Cannabinoid (u) Positive Abnormal Negative [facility] Comment on above: Performed By: #### C VFLURV #### [place] [address] Cocaine Ql (U) Negative Normal Negative [facility] Comment on above: Performed By: #### C VFLURV #### [place] [address] Methadone Ql (U) Negative Normal Negative [facility] Comment on above: Performed By: #### C VFLURV #### [place] [address] Opiate (u) Negative Normal Negative [facility] Comment on above: Performed By: #### C VFLURV #### [place] [address] PCP (u) Negative Normal Negative [facility] Comment on above: Performed By: #### C VFLURV #### [address] [address] Urine Drugs screened: See Below [facility] Comment on above: Result Comment: This drug screen is a presumptive screening only. No confirmation will be performed unless requested. Drugs screened include: Threshold Amphetamines/Methamphetamines 1,000 ng/mL Barbiturates 200 ng/mL Benzodiazepine metabolites 200 ng/mL Cannabinoids (THC metabolites) 50 ng/mL Cocaine 300 ng/mL Opiates 300 ng/mL Methadone 300 ng/mL Phencyclidine (PCP) 25 ng/mL Testing has been performed FOR MEDICAL PURPOSES ONLY. Performed By: #### C VFLURV #### [place] [address] URINon 07-26-2024 Color (U) Yellow Normal [facility] Comment on above: Performed By: #### C VFLURV #### [address] [address] Glucose (U) [Mass/Vol] 500 mg/dL Abnormal Negative [facility] Comment on above: Performed By: #### C VFLURV #### [address] [address] Ketones Ql (U) Trace Abnormal Negative [facility] Comment on above: Performed By: #### C VFLURV #### [address] [address] UA Appear Clear Normal Clear [facility] Comment on above: Performed By: #### C VFLURV #### [address] [address] UA Bili Small Abnormal Negative [facility] Comment on above: Performed By: #### C VFLURV #### [address] [address] UA Blood Negative Normal Negative [facility] Comment on above: Performed By: #### C VFLURV #### [address] [address] UA Leuk Est Negative Normal Negative [facility] Comment on above: Performed By: #### C VFLURV #### [address] [address] UA Nitrite Negative Normal Negative [facility] Comment on above: Performed By: #### C VFLURV #### [address] [address] UA pH 6.0 Normal 5.0 - 8.0 [facility] Comment on above: Performed By: #### C VFLURV #### [address] [address] UA Protein Negative Normal Negative [facility] Comment on above: Performed By: #### C VFLURV #### [address] [address] UA Spec Grav 1.015 Normal 1.015-1.025 [facility] Comment on above: Performed By: #### C VFLURV #### [facility] [address] [place], [place] [address] UA Specimen Type Void Normal [facility] Comment on above: Performed By: #### C VFLURV #### [facility] [address] [place], [place] [address] UA Urobilinogen 0.2 E.U./dL Normal 0.2-1.0 [facility] Comment on above: Performed By: #### C VFLURV #### [facility] [address] [place], [place] [address] LEVOFLOXACIN:SUSC:PT:ISOLATE :ORDQN:MICon 07-22-2024 levoFLOXacin KEN [Susc] Few Group B Beta Hemolytic Strep (Strep agalactiae) Sensitivity testing is not recommended for one of the following reasons: 1. Established susceptibility patterns are available or 2. Interpretative criteria are not available. 2 colonies Escherichia coli ESBL Extended-Spectrum B-Lactamase isolate may be clinically resistant to therapy with Penicillins, Cephalosporinsor Aztreonam despite apparent "in vitro" susceptibility to some of these agents. Use of Imipenem is currently restricted to Infectious Disease /Intensivists. Please consult Physicians accordingly. Light Bacteroides fragilis Beta-Lactamase: Positive Susceptibility testing on anaerobic bacteria not done. Many technical and interpretive difficulties are associated with this testing and in many cases antimicrobial therapy is used as an adjunct to primary surgical management. Please contact Microbiology with any questions ([phone]). Few normal skin monie present Sensitivity testing not indicated. [facility] levoFLOXacin KEN [Susc]on Bacteroides fragilis Bacteroides fragilis [facility] Escherichia coli ESBL Escherichia coli ESBL [facility] No organisms seen. [facility] .Auto Diffon 07-03-2024 Basophil, Absolute 0.1 10 3/mcL Normal 0.0-0.3 [facility] Comment on above: Performed By: #### T SH, FT3, JUANCARLOS, LD, FT4, ADIFF, GFR, ANEU, CBC, CMP #### [address] [address] Basophils/100 WBC (Bld) 1.0 % Normal 0.0-2.5 [facility] Comment on above: Performed By: #### T SH, FT3, JUANCARLOS, LD, FT4, ADIFF, GFR, ANEU, CBC, CMP #### [address] [address] Eosinophil, Absolute 0.6 10 3/mcL Normal 0.0-0.7 [facility] Comment on above: Performed By: #### T SH, FT3, JUANCARLOS, LD, FT4, ADIFF, GFR, ANEU, CBC, CMP #### [address] [address] Eosinophils/100 WBC (Bld) 7.4 % High 0.0-6.0 [facility] Comment on above: Performed By: #### T SH, FT3, JUANCARLOS, LD, FT4, ADIFF, GFR, ANEU, CBC, CMP #### [address] [address] Lymphocyte, Absolute 1.3 10 3/mcL Normal 0.9-4.3 [facility] Comment on above: Performed By: #### T SH, FT3, JUANCARLOS, LD, FT4, ADIFF, GFR, ANEU, CBC, CMP #### [address] [address] Lymphocytes/100 WBC (Bld) 15.4 % Low 20.0-40.0 [facility] Comment on above: Performed By: #### T SH, FT3, JUANCARLOS, LD, FT4, ADIFF, GFR, ANEU, CBC, CMP #### [address] [address] Monocyte, Absolute 0.7 10 3/mcL Normal 0.1-1.4 [facility] Comment on above: Performed By: #### T SH, FT3, JUANCARLOS, LD, FT4, ADIFF, GFR, ANEU, CBC, CMP #### [address] [address] Monocytes/100 WBC (Bld) 8.7 % Normal 2.0-13.0 [facility] Comment on above: Performed By: #### T SH, FT3, JUANCARLOS, LD, FT4, ADIFF, GFR, ANEU, CBC, CMP #### [address] [address] Neutrophils/100 WBC (Bld) 67.5 % Normal 50.0-75.0 [facility] Comment on above: Performed By: #### T SH, FT3, JUANCARLOS, LD, FT4, ADIFF, GFR, ANEU, CBC, CMP #### [place] [id number] .GFRon 07-03-2024 Estimated Glomerular Filtration Rate 49 ml/min/1.73sqm Normal [facility] Comment on above: Result Comment: Stages of Chronic Kidney Disease (CKD) Stage Description eGFR(ml/min/1.73 sq.m.) CKD 1 Normal kidney function or >=90 normal kindney function with possible kidney damage (ex. Proteinuria) CKD 2 Kidney damage with mild loss 60-89 of kidney function CKD 3a Mild to moderate loss of kidney 45-59 function CKD 3b Moderate to severe loss of 30-44 of kindey function CKD 4 Severe loss of kidney function 15-29 CKD 5 Kidney failure <15 Note: (go live 2024) the eGFR calculation was updated to the 2020 CKD-EPI creatinine equation without a race factor to calculate the eGFR results. Performed By: #### T SH, FT3, JUANCARLOS, LD, FT4, ADIFF, GFR, ANEU, CBC, CMP #### [address] [address] .NEUABSon 07-03-2024 Neutrophil, Absolute 5.8 10 3/mcL Normal 2.3-8.1 [facility] Comment on above: Performed By: #### T SH, FT3, JUANCARLOS, LD, FT4, ADIFF, GFR, ANEU, CBC, CMP #### [place] [id number] CBCon 07-03-2024 Erythrocyte distribution width (RBC) [Ratio] 16.9 % High 11.5-15.5 [facility] Comment on above: Performed By: #### T SH, FT3, JUANCARLOS, LD, FT4, ADIFF, GFR, ANEU, CBC, CMP #### [place] [address] Hematocrit (Bld) [Volume fraction] 45.6 % Normal 40.0-52.0 [facility] Comment on above: Performed By: #### T SH, FT3, JUANCARLOS, LD, FT4, ADIFF, GFR, ANEU, CBC, CMP #### [place] [address] Hgb 15.6 G/dL Normal 13.0-17.5 [facility] Comment on above: Performed By: #### T SH, FT3, JUANCARLOS, LD, FT4, ADIFF, GFR, ANEU, CBC, CMP #### [place] [address] MCH (RBC) [Entitic mass] 32.8 pg Normal 27.0-33.0 [facility] Comment on above: Performed By: #### T SH, FT3, JUANCARLOS, LD, FT4, ADIFF, GFR, ANEU, CBC, CMP #### [place] [address] MCHC 34.1 G/dL Normal 32.0-36.0 [facility] Comment on above: Performed By: #### T SH, FT3, JUANCARLOS, LD, FT4, ADIFF, GFR, ANEU, CBC, CMP #### [place] [address] MCV (RBC) [Entitic vol] 96.2 fL Normal 81.0-100.0 [facility] Comment on above: Performed By: #### T SH, FT3, JUANCARLOS, LD, FT4, ADIFF, GFR, ANEU, CBC, CMP #### [place] [address] Platelet 234 10 3/mcL Normal 150-450 [facility] Comment on above: Performed By: #### T SH, FT3, JUANCARLOS, LD, FT4, ADIFF, GFR, ANEU, CBC, CMP #### [place] [address] Platelet mean volume (Bld) [Entitic vol] 7.8 fL Normal 6.4-10.5 [facility] Comment on above: Performed By: #### T SH, FT3, JUANCARLOS, LD, FT4, ADIFF, GFR, ANEU, CBC, CMP #### [place] [address] RBC 4.74 10 6/mcL Normal 4.50-6.00 [facility] Comment on above: Performed By: #### T SH, FT3, JUANCARLOS, LD, FT4, ADIFF, GFR, ANEU, CBC, CMP #### [place] [address] WBC 8.6 10 3/mcL Normal 4.5-10.8 [facility] Comment on above: Performed By: #### T SH, FT3, JUANCARLOS, LD, FT4, ADIFF, GFR, ANEU, CBC, CMP #### [place] [address] CMPon 07-03-2024 Albumin Level 3.6 G/dL Normal 3.2-4.8 [facility] Comment on above: Performed By: #### T SH, FT3, JUANCARLOS, LD, FT4, ADIFF, GFR, ANEU, CBC, CMP #### [place] [address] Albumin/Globulin [Mass ratio] 1.1 {ratio} Normal 0.9-1.6 [facility] Comment on above: Performed By: #### T SH, FT3, JUANCARLOS, LD, FT4, ADIFF, GFR, ANEU, CBC, CMP #### [place] [address] ALP [Catalytic activity/Vol] 84 U/L Normal 38-126 [facility] Comment on above: Performed By: #### T SH, FT3, JUANCARLOS, LD, FT4, ADIFF, GFR, ANEU, CBC, CMP #### [place] [address] ALT [Catalytic activity/Vol] 12 U/L Normal 12-55 [facility] Comment on above: Performed By: #### T SH, FT3, JUANCARLOS, LD, FT4, ADIFF, GFR, ANEU, CBC, CMP #### [place] [id number] AST [Catalytic activity/Vol] 14 U/L Normal 8-34 [facility] Comment on above: Performed By: #### T SH, FT3, JUANCARLOS, LD, FT4, ADIFF, GFR, ANEU, CBC, CMP #### [place] [id number] Bili Total 0.20 mg/dL Normal 0.20-1.20 [facility] Comment on above: Result Comment: Use of this assay is not recommended for patients undergoing treatment with eltrombopag due to the potential for falsely elevated results. Performed By: #### T SH, FT3, JUANCARLOS, LD, FT4, ADIFF, GFR, ANEU, CBC, CMP #### [place] [id number] BUN/Creatinine Ratio 18.0 ratio Normal 10.0-22.0 [facility] Comment on above: Performed By: #### T SH, FT3, JUANCARLOS, LD, FT4, ADIFF, GFR, ANEU, CBC, CMP #### [place] [id number] Calcium [Mass/Vol] 8.9 mg/dL Normal 8.7-10.4 [facility] Comment on above: Performed By: #### T SH, FT3, JUANCARLOS, LD, FT4, ADIFF, GFR, ANEU, CBC, CMP #### [address] [address] Chloride [Moles/Vol] 108 mmol/L Normal 98-110 [facility] Comment on above: Performed By: #### T SH, FT3, JUANCARLOS, LD, FT4, ADIFF, GFR, ANEU, CBC, CMP #### [address] [address] CO2 [Moles/Vol] 28 mmol/L Normal 22-32 [facility] Comment on above: Performed By: #### T SH, FT3, JUANCARLOS, LD, FT4, ADIFF, GFR, ANEU, CBC, CMP #### [address] [address] Creatinine [Mass/Vol] 1.72 mg/dL High 0.60-1.40 [facility] Comment on above: Result Comment: Test ing performed on [employer] analyzer using enzymatic creatinine methodology. Performed By: #### T SH, FT3, JUANCARLOS, LD, FT4, ADIFF, GFR, ANEU, CBC, CMP #### [address] [address] Electrolyte Balance 6.0 mEq/L Normal 4.0-15.0 [facility] Comment on above: Performed By: #### T SH, FT3, JUANCARLOS, LD, FT4, ADIFF, GFR, ANEU, CBC, CMP #### [place] [id number] Globulin 3.2 G/dL Normal 2.5-4.2 [facility] Comment on above: Performed By: #### T SH, FT3, JUANCARLOS, LD, FT4, ADIFF, GFR, ANEU, CBC, CMP #### [address] [address] Glucose [Mass/Vol] 112 mg/dL High 70-110 [facility] Comment on above: Performed By: #### T SH, FT3, JUANCARLOS, LD, FT4, ADIFF, GFR, ANEU, CBC, CMP #### [address] [address] Potassium [Moles/Vol] 3.6 mmol/L Normal 3.5-5.0 [facility] Comment on above: Performed By: #### T SH, FT3, JUANCARLOS, LD, FT4, ADIFF, GFR, ANEU, CBC, CMP #### [address] [address] Sodium [Moles/Vol] 142 mmol/L Normal 136-145 [facility] Comment on above: Performed By: #### T SH, FT3, JUANCARLOS, LD, FT4, ADIFF, GFR, ANEU, CBC, CMP #### [place] [id number] Total Protein 6.8 G/dL Normal 5.7-8.2 [facility] Comment on above: Performed By: #### T SH, FT3, JUANCARLOS, LD, FT4, ADIFF, GFR, ANEU, CBC, CMP #### [place] [address] Urea nitrogen [Mass/Vol] 31.0 mg/dL High 8.0-22.0 [facility] Comment on above: Performed By: #### T SH, FT3, JUANCARLOS, LD, FT4, ADIFF, GFR, ANEU, CBC, CMP #### [place] [address] CORTon 07-03-2024 Cortisol Level 24.9 mcg/dL Normal [facility] Comment on above: Result Comment: Juancarlos isol AM Reference Range 6.5-26.0 mcg/dL Cortisol PM Reference Range 3.5-15.0 mcg/dL Performed By: #### T SH, FT3, JUANCARLOS, LD, FT4, ADIFF, GFR, ANEU, CBC, CMP #### [place] [address] FT3on 07-03-2024 Free T3 [Mass/Vol] 3.72 pg/mL Normal 2.30-4.20 [facility] Comment on above: Performed By: #### T SH, FT3, JUANCARLOS, LD, FT4, ADIFF, GFR, ANEU, CBC, CMP #### [place] [address] FT4on 07-03-2024 Free T4 [Mass/Vol] 1.45 ng/dL Normal 0.89-1.76 [facility] Comment on above: Result Comment: No te - New Reference Range in effect 19 Performed By: #### T SH, FT3, JUANCARLOS, LD, FT4, ADIFF, GFR, ANEU, CBC, CMP #### [place] [address] LABORATORYOrdered By: Tim Lee on 07-03-2024 Appearance (U) Clear (07/03/24 11:45 AM) Normal [facility] Auto Urine SS Bacteria LM.HPF (Urine sed) [#/Area] 1 /[HPF] Invalid Interpretation Code AH Auto Urine SS Bilirubin Ql (U) Negative (07/03/24 11:45 AM) Normal AH Auto Urine SS Color (U) Yellow (07/03/24 11:45 AM) Normal AH Auto Urine SS Glucose Test strip (U) [Mass/Vol] >=1000 mg/dL Invalid Interpretation Code AH Auto Urine SS Hemoglobin Auto test strip (U) [Mass/Vol] Trace (07/03/24 11:45 AM) Normal AH Auto Urine SS Ketones Ql (U) Negative Normal AH Auto Ur ine SS UA Leuk Est Moderate *ABN* (07/03/24 11:45 AM) Invalid Interpretation Code AH Auto Urine SS UA Nitrite Negative (07/03/24 11:45 AM) Normal AH Auto Urine SS UA pH 6.0 (07/03/24 11:45 AM) Normal AH Auto Urine SS UA Protein Trace mg/dL Normal AH Auto Urine SS UA RBC 0-2 /HPF Normal AH Auto Urine SS UA Spec Grav 1.020 (07/03/24 11:45 AM) Normal AH Auto Urine SS UA Specimen Type Clean Catch (07/03/24 11:45 AM) Normal AH Auto Urine SS UA Squam Epithelial 0-2 /HPF Normal AH Au to Urine SS UA Transitional Epithelial 0-2 /HPF Normal AH Auto Urine SS UA Urobilinogen 0.2 E.U./dL Normal AH Auto Urine SS WBC LM.HPF (Urine sed) [#/Area] 3-5 /HPF Normal AH Auto Urine SS LABORATORYOrdered By: SYSTEM SYSTEM on 07-03-2024 Albumin BCP dye [Mass/Vol] 3.6 G/dL Normal 3.2 - 4.8 G/dL AH ADM SS Albumin/Globulin [Mass ratio] 1.1 {ratio} Normal 0.9 - 1.6 ratio AH ADM SS ALP [Catalytic activity/Vol] 84 U/L Normal 38 - 126 U/L AH ADM SS ALT No additional P-5'-P [Catalytic activity/Vol] 12 U/L Normal 12 - 55 U/L AH ADM SS AST [Catalytic activity/Vol] 14 U/L Normal 8 - 34 U/L AH ADM SS Basophils (Bld) [#/Vol] 0.1 103/mcL Normal 0.0 - 0.3 10^3/mcL AH Workflow SS Basophils/100 WBC (Bld) 1.0 % Normal 0.0 - 2.5 % Workflow SS Bilirubin [Mass/Vol] 0.20 mg/dL Normal 0.20 - 1.20 mg/dL ADM SS Comment on above: Interpretive Data: U se of this assay is not recommended for patients undergoing treatment with eltrombopag due to the potential for falsely elevated results. Calcium [Mass/Vol] 8.9 mg/dL Normal 8.7 - 10. 4 mg/dL AH ADM SS Chloride [Moles/Vol] 108 mmol/L Normal 98 - 11 0 mEq/L AH ADM SS CO2 [Moles/Vol] 28 mmol/L Normal 22 - 32 mEq/L ADM SS Cortisol [Mass/Vol] 24.9 ug/dL Invalid Interpretation Code ADM SS Comment on above: Interpretive Data: C ortisol AM Reference Range 6.5-26.0 mcg/dL Cortisol PM Reference Range 3.5-15.0 mcg/dL Creatinine [Mass/Vol] 1.72 mg/dL High 0.60 - 1.40 mg/dL ADM SS Comment on above: Interpretive Data: T esting performed on [employer] analyzer using enzymatic creatinine methodology. Electrolyte Balance 6.0 mEq/L Normal 4.0 - 15 .0 mEq/L ADM SS Eosinophils (Bld) [#/Vol] 0.6 103/mcL Normal 0.0 - 0.7 10^3/mcL Workflow SS Eosinophils/100 WBC (Bld) 7.4 % High 0.0 - 6.0 % Workflow SS Erythrocyte distribution width (RBC) [Ratio] 16.9 % High 11.5 - 15.5 % Workflow SS Estimated Glomerular Filtration Rate 49 ml/min/1.73sqm Invalid Interpretation Code ADM SS Comment on above: Interpretive Data: Stages of Chronic Kidney Disease (CKD) Stage Description eGFR(ml/min/1.73 sq.m.) CKD 1 Normal kidney function or >=90 normal kindney function with possible kidney damage (ex. Proteinuria) CKD 2 Kidney damage with mild loss 60-89 of kidney function CKD 3a Mild to moderate loss of kidney 45-59 function CKD 3b Moderate to severe loss of 30-44 of kindey function CKD 4 Severe loss of kidney function 15-29 CKD 5 Kidney failure <15 Note: (go live 2024) the eGFR calculation was updated to the 2020 CKD-EPI creatinine equation without a race factor to calculate the eGFR results. Free T3 [Mass/Vol] 3.72 pg/mL Normal 2.30 - 4. 20 pg/mL ADM SS Free T4 [Mass/Vol] 1.45 ng/dL Normal 0.89 - 1. 76 ng/dL AH ADM SS Comment on above: Interpretive Data: * *Note - New Reference Range in effect 19 Globulin 3.2 G/dL Normal 2.5 - 4.2 G/dL AH ADM SS Glucose [Mass/Vol] 112 mg/dL High 70 - 110 mg/dL ADM SS Hematocrit (Bld) [Volume fraction] 45.6 % Normal 40.0 - 52.0 % AH Workflow SS Hemoglobin (Bld) [Mass/Vol] 15.6 G/dL Normal 13.0 - 17.5 G/dL Workflow SS LDH Lactate to pyruvate reaction [Catalytic activity/Vol] 169 1 Normal 120 - 246 U/L ADM SS Lymphocytes (Bld) [#/Vol] 1.3 103/mcL Normal 0.9 - 4.3 10^3/mcL AH Workflow SS Lymphocytes/100 WBC (Bld) 15.4 % Low 20.0 - 40.0 % AH Workflow SS MCH (RBC) [Entitic mass] 32.8 pg Normal 27.0 - 33.0 pg AH Workflow SS MCHC 34.1 G/dL Normal 32.0 - 36.0 G/dL AH Workflow SS MCV (RBC) [Entitic vol] 96.2 fL Normal 81.0 - 100.0 fL AH Workflow SS Monocytes (Bld) [#/Vol] 0.7 103/mcL Normal 0.1 - 1.4 10^3/mcL AH Workflow SS Monocytes/100 WBC (Bld) 8.7 % Normal 2.0 - 13.0 % AH Workflow SS Neutrophils (Bld) [#/Vol] 5.8 103/mcL Normal 2.3 - 8.1 10^3/mcL AH Workflow SS Neutrophils/100 WBC (Bld) 67.5 % Normal 50.0 - 75.0 % AH Workflow SS Platelet mean volume (Bld) [Entitic vol] 7.8 fL Normal 6.4 - 10.5 fL AH Workflow SS Platelets (Bld) [#/Vol] 234 103/mcL Normal 150 - 450 10^3/mcL AH Workflow SS Potassium [Moles/Vol] 3.6 mmol/L Normal 3.5 - 5.0 mEq/L AH ADM SS Protein [Mass/Vol] 6.8 G/dL Normal 5.7 - 8.2 G/dL ADM SS RBC (Bld) [#/Vol] 4.74 106/mcL Normal 4.50 - 6.0 0 10^6/mcL Workflow SS Sodium [Moles/Vol] 142 mmol/L Normal 136 - 145 mEq/L ADM SS TSH Qn 1.757 mIU/mL Normal 0.550 - 4.780 mIU/mL ADM SS Urea nitrogen [Mass/Vol] 31.0 mg/dL High 8.0 - 22.0 mg/dL ADM SS Urea nitrogen/Creatinine [Mass ratio] 18.0 ratio Normal 10.0 - 22.0 ratio ADM SS WBC (Bld) [#/Vol] 8.6 103/mcL Normal 4.5 - 10.8 10^3/mcL Workflow SS LDHon 07-03-2024 LDH 169 U/L Normal 120-246 [facility] Comment on above: Performed By: #### T SH, FT3, JUANCARLOS, LD, FT4, ADIFF, GFR, ANEU, CBC, CMP #### [place] [id number] TSHon 07-03-2024 TSH 1.757 mIU/mL Normal 0.550-4.780 [facility] Comment on above: Performed By: #### T SH, FT3, JUANCARLOS, LD, FT4, ADIFF, GFR, ANEU, CBC, CMP #### [address] [address] UAon 07-03-2024 Color (U) Yellow Normal [facility] Comment on above: Performed By: #### T SH, FT3, JUANCARLOS, LD, FT4, ADIFF, GFR, ANEU, CBC, CMP #### [place] [address] Glucose (U) [Mass/Vol] mg/dL Abnormal Negative [facility] Comment on above: Performed By: #### T SH, FT3, JUANCARLOS, LD, FT4, ADIFF, GFR, ANEU, CBC, CMP #### [place] [id number] Ketones Ql (U) Negative Normal Neg-Trace [facility] Comment on above: Performed By: #### T SH, FT3, JUANCARLOS, LD, FT4, ADIFF, GFR, ANEU, CBC, CMP #### [place] [address] UA Appear Clear Normal Clear [facility] Comment on above: Performed By: #### T SH, FT3, JUANCARLOS, LD, FT4, ADIFF, GFR, ANEU, CBC, CMP #### [place] [address] UA Blood Trace Normal Neg-Trace [facility] Comment on above: Performed By: #### T SH, FT3, JUANCARLOS, LD, FT4, ADIFF, GFR, ANEU, CBC, CMP #### [place] [address] UA Leuk Est Moderate Abnormal Negative [facility] Comment on above: Performed By: #### T SH, FT3, JUANCARLOS, LD, FT4, ADIFF, GFR, ANEU, CBC, CMP #### [place] [address] UA Nitrite Negative Normal Negative [facility] Comment on above: Performed By: #### T SH, FT3, JUANCARLOS, LD, FT4, ADIFF, GFR, ANEU, CBC, CMP #### [place] [address] UA pH 6.0 Normal 5.0 - 8.0 [facility] Comment on above: Performed By: #### T SH, FT3, JUANCARLOS, LD, FT4, ADIFF, GFR, ANEU, CBC, CMP #### [place] [address] UA Protein Trace Normal Negative [facility] Comment on above: Performed By: #### T SH, FT3, JUANCARLOS, LD, FT4, ADIFF, GFR, ANEU, CBC, CMP #### [place] [address] UA Spec Grav 1.020 Normal 1.006-1.029 [facility] Comment on above: Performed By: #### T SH, FT3, JUANCARLOS, LD, FT4, ADIFF, GFR, ANEU, CBC, CMP #### [place] [address] UA Specimen Type Clean Catch Normal [facility] Comment on above: Performed By: #### T SH, FT3, JUANCARLOS, LD, FT4, ADIFF, GFR, ANEU, CBC, CMP #### [place] [address] UA Urobilinogen 0.2 E.U./dL Normal 0.2-1.0 [facility] Comment on above: Performed By: #### T SH, FT3, JUANCARLOS, LD, FT4, ADIFF, GFR, ANEU, CBC, CMP #### [place] [address] Urobilinogen (U) [Mass/Vol] Negative Normal Neg-Trace [facility] Comment on above: Performed By: #### T SH, FT3, JUANCARLOS, LD, FT4, ADIFF, GFR, ANEU, CBC, CMP #### [place] [address] UAMICon 07-03-2024 UA Bacteria 1+ /hpf Abnormal Negative [facility] Comment on above: Performed By: #### T SH, FT3, JUANCARLOS, LD, FT4, ADIFF, GFR, ANEU, CBC, CMP #### [place] [address] UA RBC 0-2 Normal 0-2 [facility] Comment on above: Performed By: #### T SH, FT3, JUANCARLOS, LD, FT4, ADIFF, GFR, ANEU, CBC, CMP #### [place] [address] UA Squam Epithelial 0-2 Normal 0-20 [facility] Comment on above: Performed By: #### T SH, FT3, JUANCARLOS, LD, FT4, ADIFF, GFR, ANEU, CBC, CMP #### [place] [address] UA Transitional Epithelial 0-2 Normal [facility] Comment on above: Performed By: #### T SH, FT3, JUANCARLOS, LD, FT4, ADIFF, GFR, ANEU, CBC, CMP #### [facility] [address] [place] [id number] UA WBC 3-5 Normal 0-5 [facility] Comment on above: Performed By: #### T SH, FT3, JUANCARLOS, LD, FT4, ADIFF, GFR, ANEU, CBC, CMP #### [facility] [address] [place] [id number] THORAX W/ CONTRASTon 05- CT THORAX W/ CONTRAST ORIGINAL EXAMINATION: CT OF THE CHEST WITH CONTRAST 06/26/2024 2:47 pm TECHNIQUE: CT of the chest was performed with the administration of intravenous contrast. Multiplanar reformatted images are provided for review. Automated exposure control, iterative reconstruction, and/or weight based adjustment of the mA/kV was utilized to reduce the radiation dose to as low as reasonably achievable. COMPARISON: January 19, 2024 HISTORY: ORDERING SYSTEM PROVIDED HISTORY: Reason for Exam: Monitor for progression, no current complaints. FINDINGS: Recist 1.1: POTENTIAL TARGET TUMOR LESIONS (maximum 5 lesions, maximum 2 per organ, longest dimension in axial plane reported, >10 mm, reproducible lesions): None POTENTIAL TARGET LYMPH NODES (>15 mm short axis, maximum 2): None NONTARGET LESIONS (Definite tumor lesions, lymph nodes 10-14 mm short axis, immeasurable lesions such as lymphangitic involvement, ascites, pleural effusions, etc.): Pathologic T11 compression, stable. Pathologic compression of T11 is again identified, and the appearance is similar to the previous exam. There are degenerative changes in the spine elsewhere, with no other compression deformity seen. No other osseous abnormality. Small scattered areas of pulmonary and pleural scarring are similar to prior exam. Minimal tree-in-bud densities are present at the posterior and posterolateral margins of the left lower lobe, new since prior exam. This is presumably small airways inflammatory change. No confluent area of infiltrate is present. No significant pulmonary nodules are visible. No pleural fluid seen. No mediastinal adenopathy is evident. Bilateral gynecomastia is incidentally seen. No other contributory finding. IMPRESSION: 1. Tree-in-bud densities at the left lower lobe most compatible with small airways inflammatory change. No confluent pneumonia is seen. 2. Otherwise stable findings, including pathologic T11 compression. No potential new disease seen. Interpreted by: Rachell Dennis MD Preliminary Report By: Rachell Dennis MD Electronically signed By Rachell Dennis MD Dictated Date: 06/28/2024 1:39:34 PM Prelim Date: 06/28/2024 1:43:53 PM Sign Date: 06/28/2024 1:43:53 PM Ordering Provider: [facility] CT ABDOMEN/PELVIS W/CONTRAST on 06-26-2024 CT ABDOMEN/PELVIS W/CONTRAST ORIGINAL EXAMINATION: CT OF THE ABDOMEN AND PELVIS WITH CONTRAST 06/26/2024 2:49 pm TECHNIQUE: CT of the abdomen and pelvis was performed with the administration of intravenous contrast. Multiplanar reformatted images are provided for review. Automated exposure control, iterative reconstruction, and/or weight based adjustment of the mA/kV was utilized to reduce the radiation dose to as low as reasonably achievable. COMPARISON: 01/19/2024 HISTORY: ORDERING SYSTEM PROVIDED HISTORY: Reason for Exam: Monitor for progression, no current complaints. Renal cell carcinoma 2020 FINDINGS: Recist 1.1: POTENTIAL TARGET TUMOR LESIONS (maximum 5 lesions, maximum 2 per organ, longest dimension in axial plane reported, >10 mm, reproducible lesions): - None POTENTIAL TARGET LYMPH NODES (>15 mm short axis, maximum 2): - None NONTARGET LESIONS (Definite tumor lesions, lymph nodes 10-14 mm short axis, immeasurable lesions such as lymphangitic involvement, ascites, pleural effusions, etc.): - None Lower Chest: Same day CT chest reported separately. Organs: Stable subcentimeter right hepatic lobe hypodensities which likely represent cysts or hemangiomas. Gallbladder, pancreas, spleen and adrenal glands are unremarkable. Kidneys: Left nephrectomy. No suspicious soft tissue lesion within the nephrectomy bed. No right renal mass, calculus or hydronephrosis. Pelvis: Unremarkable bladder. No pelvic or inguinal lymphadenopathy. GI: No dilation or wall thickening of the bowel. Stable posterolateral left hernia containing a short segment of proximal descending colon. No evidence of obstruction or inflammatory changes within the hernia sac. Unremarkable appendix. No free intraperitoneal air. No abdominal lymphadenopathy. Vasculature: Atherosclerotic and nonaneurysmal abdominal aorta. Soft Tissues: No acute soft tissue findings. Bones: No acute osseous findings. Stable pathologic fracture of T11. IMPRESSION: Stable exam with no evidence of recurrent or new potential metastatic disease. I have personally reviewed the images of this examination and agree with the resident's findings and interpretation. Interpreted by: Rachell Dennis MD Preliminary Report By: Eileen Krishnan Electronically signed By Racehll Dennis MD Dictated Date: 06/26/2024 4:19:22 PM Prelim Date: 06/26/2024 4:46:12 PM Sign Date: 06/26/2024 4:46:12 PM Ordering Provider: [facility] .Auto Diffon 06-05-2024 Basophil, Absolute 0.1 10 3/mcL Normal 0.0-0.3 [facility] Comment on above: Performed By: #### T SH, FT3, JUANCARLOS, LD, FT4, ADIFF, GFR, ANEU, CBC, CMP #### [address] [address] Basophils/100 WBC (Bld) 0.7 % Normal 0.0-2.5 [facility] Comment on above: Performed By: #### T SH, FT3, JUANCARLOS, LD, FT4, ADIFF, GFR, ANEU, CBC, CMP #### [address] [address] Eosinophil, Absolute 0.8 10 3/mcL High 0.0-0.7 [facility] Comment on above: Performed By: #### T SH, FT3, JUANCARLOS, LD, FT4, ADIFF, GFR, ANEU, CBC, CMP #### [address] [address] Eosinophils/100 WBC (Bld) 9.8 % High 0.0-6.0 [facility] Comment on above: Performed By: #### T SH, FT3, JUANCARLOS, LD, FT4, ADIFF, GFR, ANEU, CBC, CMP #### [address] [address] Lymphocyte, Absolute 1.4 10 3/mcL Normal 0.9-4.3 [facility] Comment on above: Performed By: #### T SH, FT3, JUANCARLOS, LD, FT4, ADIFF, GFR, ANEU, CBC, CMP #### [address] [address] Lymphocytes/100 WBC (Bld) 16.4 % Low 20.0-40.0 [facility] Comment on above: Performed By: #### T SH, FT3, JUANCARLOS, LD, FT4, ADIFF, GFR, ANEU, CBC, CMP #### [address] [address] Monocyte, Absolute 0.8 10 3/mcL Normal 0.1-1.4 [facility] Comment on above: Performed By: #### T SH, FT3, JUANCARLOS, LD, FT4, ADIFF, GFR, ANEU, CBC, CMP #### [address] [address] Monocytes/100 WBC (Bld) 8.9 % Normal 2.0-13.0 [facility] Comment on above: Performed By: #### T SH, FT3, JUANCARLOS, LD, FT4, ADIFF, GFR, ANEU, CBC, CMP #### [address] [address] Neutrophils/100 WBC (Bld) 64.2 % Normal 50.0-75.0 [facility] Comment on above: Performed By: #### T SH, FT3, JUANCARLOS, LD, FT4, ADIFF, GFR, ANEU, CBC, CMP #### [address] [address] .GFRon 06-05-2024 Estimated Glomerular Filtration Rate 48 ml/min/1.73sqm Normal [facility] Comment on above: Result Comment: Stages of Chronic Kidney Disease (CKD) Stage Description eGFR(ml/min/1.73 sq.m.) CKD 1 Normal kidney function or >=90 normal kindney function with possible kidney damage (ex. Proteinuria) CKD 2 Kidney damage with mild loss 60-89 of kidney function CKD 3a Mild to moderate loss of kidney 45-59 function CKD 3b Moderate to severe loss of 30-44 of kindey function CKD 4 Severe loss of kidney function 15-29 CKD 5 Kidney failure <15 Note: (go live 2024) the eGFR calculation was updated to the 2020 CKD-EPI creatinine equation without a race factor to calculate the eGFR results. Performed By: #### T SH, FT3, JUANCARLOS, LD, FT4, ADIFF, GFR, ANEU, CBC, CMP #### [place] [address] .NEUABSon 06-05-2024 Neutrophil, Absolute 5.5 10 3/mcL Normal 2.3-8.1 [facility] Comment on above: Performed By: #### T SH, FT3, JUANCARLOS, LD, FT4, ADIFF, GFR, ANEU, CBC, CMP #### [place] [address] CBCon 06-05-2024 Erythrocyte distribution width (RBC) [Ratio] 18.9 % High 11.5-15.5 [facility] Comment on above: Performed By: #### T SH, FT3, JUANCARLOS, LD, FT4, ADIFF, GFR, ANEU, CBC, CMP #### [place] [address] Hematocrit (Bld) [Volume fraction] 43.3 % Normal 40.0-52.0 [facility] Comment on above: Performed By: #### T SH, FT3, JUANCARLOS, LD, FT4, ADIFF, GFR, ANEU, CBC, CMP #### [place] [address] Hgb 14.5 G/dL Normal 13.0-17.5 [facility] Comment on above: Performed By: #### T SH, FT3, JUANCARLOS, LD, FT4, ADIFF, GFR, ANEU, CBC, CMP #### [place] [address] MCH (RBC) [Entitic mass] 31.6 pg Normal 27.0-33.0 [facility] Comment on above: Performed By: #### T SH, FT3, JUANCARLOS, LD, FT4, ADIFF, GFR, ANEU, CBC, CMP #### [place] [address] MCHC 33.5 G/dL Normal 32.0-36.0 [facility] Comment on above: Performed By: #### T SH, FT3, JUANCARLOS, LD, FT4, ADIFF, GFR, ANEU, CBC, CMP #### [place] [address] MCV (RBC) [Entitic vol] 94.4 fL Normal 81.0-100.0 [facility] Comment on above: Performed By: #### T SH, FT3, JUANCARLOS, LD, FT4, ADIFF, GFR, ANEU, CBC, CMP #### [place] [address] Platelet 253 10 3/mcL Normal 150-450 [facility] Comment on above: Performed By: #### T SH, FT3, JUANCARLOS, LD, FT4, ADIFF, GFR, ANEU, CBC, CMP #### [place] [address] Platelet mean volume (Bld) [Entitic vol] 7.6 fL Normal 6.4-10.5 [facility] Comment on above: Performed By: #### T SH, FT3, JUANCARLOS, LD, FT4, ADIFF, GFR, ANEU, CBC, CMP #### [place] [address] RBC 4.59 10 6/mcL Normal 4.50-6.00 [facility] Comment on above: Performed By: #### T SH, FT3, JUANCARLOS, LD, FT4, ADIFF, GFR, ANEU, CBC, CMP #### [place] [address] WBC 8.6 10 3/mcL Normal 4.5-10.8 [facility] Comment on above: Performed By: #### T SH, FT3, JUANCARLOS, LD, FT4, ADIFF, GFR, ANEU, CBC, CMP #### [place] [address] CMPon 06-05-2024 Albumin Level 3.8 G/dL Normal 3.2-4.8 [facility] Comment on above: Performed By: #### T SH, FT3, JUANCARLOS, LD, FT4, ADIFF, GFR, ANEU, CBC, CMP #### [place] [address] Albumin/Globulin [Mass ratio] 1.2 {ratio} Normal 0.9-1.6 [facility] Comment on above: Performed By: #### T SH, FT3, JUANCARLOS, LD, FT4, ADIFF, GFR, ANEU, CBC, CMP #### [place] [address] ALP [Catalytic activity/Vol] 83 U/L Normal 38-126 [facility] Comment on above: Performed By: #### T SH, FT3, JUANCARLOS, LD, FT4, ADIFF, GFR, ANEU, CBC, CMP #### [place] [address] ALT [Catalytic activity/Vol] 20 U/L Normal 12-55 [facility] Comment on above: Performed By: #### T SH, FT3, JUANCARLOS, LD, FT4, ADIFF, GFR, ANEU, CBC, CMP #### [place] [id number] AST [Catalytic activity/Vol] 16 U/L Normal 8-34 [facility] Comment on above: Performed By: #### T SH, FT3, JUANCARLOS, LD, FT4, ADIFF, GFR, ANEU, CBC, CMP #### [place] [address] Bili Total 0.40 mg/dL Normal 0.20-1.20 [facility] Comment on above: Result Comment: Use of this assay is not recommended for patients undergoing treatment with eltrombopag due to the potential for falsely elevated results. Performed By: #### T SH, FT3, JUANCARLOS, LD, FT4, ADIFF, GFR, ANEU, CBC, CMP #### [place] [address] BUN/Creatinine Ratio 12.5 ratio Normal 10.0-22.0 [facility] Comment on above: Performed By: #### T SH, FT3, JUANCARLOS, LD, FT4, ADIFF, GFR, ANEU, CBC, CMP #### [place] [id number] Calcium [Mass/Vol] 9.3 mg/dL Normal 8.7-10.4 [facility] Comment on above: Performed By: #### T SH, FT3, JUANCARLOS, LD, FT4, ADIFF, GFR, ANEU, CBC, CMP #### [place] [id number] Chloride [Moles/Vol] 105 mmol/L Normal 98-110 [facility] Comment on above: Performed By: #### T SH, FT3, JUANCARLOS, LD, FT4, ADIFF, GFR, ANEU, CBC, CMP #### [place] [address] CO2 [Moles/Vol] 30 mmol/L Normal 22-32 [facility] Comment on above: Performed By: #### T SH, FT3, JUANCARLOS, LD, FT4, ADIFF, GFR, ANEU, CBC, CMP #### [place] [id number] Creatinine [Mass/Vol] 1.76 mg/dL High 0.60-1.40 [facility] Comment on above: Result Comment: Test ing performed on [employer] analyzer using enzymatic creatinine methodology. Performed By: #### T SH, FT3, JUANCARLOS, LD, FT4, ADIFF, GFR, ANEU, CBC, CMP #### [place] [address] Electrolyte Balance 5.0 mEq/L Normal 4.0-15.0 [facility] Comment on above: Performed By: #### T SH, FT3, JUANCARLOS, LD, FT4, ADIFF, GFR, ANEU, CBC, CMP #### [place] [address] Globulin 3.2 G/dL Normal 1.5-3.8 [facility] Comment on above: Performed By: #### T SH, FT3, JUANCARLOS, LD, FT4, ADIFF, GFR, ANEU, CBC, CMP #### [place] [id number] Glucose [Mass/Vol] 113 mg/dL High 70-110 [facility] Comment on above: Performed By: #### T SH, FT3, JUANCARLOS, LD, FT4, ADIFF, GFR, ANEU, CBC, CMP #### [address] [address] Potassium [Moles/Vol] 4.0 mmol/L Normal 3.5-5.0 [facility] Comment on above: Performed By: #### T SH, FT3, JUANCARLOS, LD, FT4, ADIFF, GFR, ANEU, CBC, CMP #### [place] [id number] Sodium [Moles/Vol] 140 mmol/L Normal 136-145 [facility] Comment on above: Performed By: #### T SH, FT3, JUANCARLOS, LD, FT4, ADIFF, GFR, ANEU, CBC, CMP #### [place] [id number] Total Protein 7.0 G/dL Normal 5.7-8.2 [facility] Comment on above: Performed By: #### T SH, FT3, JUANCARLOS, LD, FT4, ADIFF, GFR, ANEU, CBC, CMP #### [place] [id number] Urea nitrogen [Mass/Vol] 22.0 mg/dL Normal 8.0-22.0 [facility] Comment on above: Performed By: #### T SH, FT3, JUANCARLOS, LD, FT4, ADIFF, GFR, ANEU, CBC, CMP #### [place] [id number] CORTon 06-05-2024 Cortisol Level 14.8 mcg/dL Normal [facility] Comment on above: Result Comment: Juancarlos isol AM Reference Range 6.5-26.0 mcg/dL Cortisol PM Reference Range 3.5-15.0 mcg/dL Performed By: #### T SH, FT3, JUANCARLOS, LD, FT4, ADIFF, GFR, ANEU, CBC, CMP #### [place] [id number] FT3on 06-05-2024 Free T3 [Mass/Vol] 3.29 pg/mL Normal 2.30-4.20 [facility] Comment on above: Performed By: #### T SH, FT3, JUANCARLOS, LD, FT4, ADIFF, GFR, ANEU, CBC, CMP #### [address] [address] FT4on 06-05-2024 Free T4 [Mass/Vol] 1.53 ng/dL Normal 0.89-1.76 [facility] Comment on above: Result Comment: No te - New Reference Range in effect 19 Performed By: #### T SH, FT3, JUANCARLOS, LD, FT4, ADIFF, GFR, ANEU, CBC, CMP #### [address] [address] LABORATORYOrdered By: SYSTEM SYSTEM on 06-05-2024 Albumin BCP dye [Mass/Vol] 3.8 G/dL Normal 3.2 - 4.8 G/dL ADM SS Albumin/Globulin [Mass ratio] 1.2 {ratio} Normal 0.9 - 1.6 ratio ADM SS ALP [Catalytic activity/Vol] 83 U/L Normal 38 - 126 U/L ADM SS ALT No additional P-5'-P [Catalytic activity/Vol] 20 U/L Normal 12 - 55 U/L ADM SS AST [Catalytic activity/Vol] 16 U/L Normal 8 - 34 U/L ADM SS Basophils (Bld) [#/Vol] 0.1 103/mcL Normal 0.0 - 0.3 10^3/mcL Workflow SS Basophils/100 WBC (Bld) 0.7 % Normal 0.0 - 2.5 % Workflow SS Bilirubin [Mass/Vol] 0.40 mg/dL Normal 0.20 - 1.20 mg/dL ADM SS Comment on above: Interpretive Data: U se of this assay is not recommended for patients undergoing treatment with eltrombopag due to the potential for falsely elevated results. Calcium [Mass/Vol] 9.3 mg/dL Normal 8.7 - 10. 4 mg/dL ADM SS Chloride [Moles/Vol] 105 mmol/L Normal 98 - 11 0 mEq/L AH ADM SS CO2 [Moles/Vol] 30 mmol/L Normal 22 - 32 mEq/L ADM SS Cortisol [Mass/Vol] 14.8 ug/dL Invalid Interpretation Code ADM SS Comment on above: Interpretive Data: C ortisol AM Reference Range 6.5-26.0 mcg/dL Cortisol PM Reference Range 3.5-15.0 mcg/dL Creatinine [Mass/Vol] 1.76 mg/dL High 0.60 - 1.40 mg/dL ADM SS Comment on above: Interpretive Data: T esting performed on [employer] analyzer using enzymatic creatinine methodology. Electrolyte Balance 5.0 mEq/L Normal 4.0 - 15 .0 mEq/L ADM SS Eosinophils (Bld) [#/Vol] 0.8 103/mcL High 0.0 - 0.7 10^3/mcL Workflow SS Eosinophils/100 WBC (Bld) 9.8 % High 0.0 - 6.0 % Workflow SS Erythrocyte distribution width (RBC) [Ratio] 18.9 % High 11.5 - 15.5 % Workflow SS Estimated Glomerular Filtration Rate 48 ml/min/1.73sqm Invalid Interpretation Code ADM SS Comment on above: Interpretive Data: Stages of Chronic Kidney Disease (CKD) Stage Description eGFR(ml/min/1.73 sq.m.) CKD 1 Normal kidney function or >=90 normal kindney function with possible kidney damage (ex. Proteinuria) CKD 2 Kidney damage with mild loss 60-89 of kidney function CKD 3a Mild to moderate loss of kidney 45-59 function CKD 3b Moderate to severe loss of 30-44 of kindey function CKD 4 Severe loss of kidney function 15-29 CKD 5 Kidney failure <15 Note: (go live 2024) the eGFR calculation was updated to the 2020 CKD-EPI creatinine equation without a race factor to calculate the eGFR results. Free T3 [Mass/Vol] 3.29 pg/mL Normal 2.30 - 4. 20 pg/mL ADM SS Free T4 [Mass/Vol] 1.53 ng/dL Normal 0.89 - 1. 76 ng/dL ADM SS Comment on above: Interpretive Data: * *Note - New Reference Range in effect 19 Globulin 3.2 G/dL Normal 1.5 - 3.8 G/dL ADM SS Glucose [Mass/Vol] 113 mg/dL High 70 - 110 mg/dL ADM SS Hematocrit (Bld) [Volume fraction] 43.3 % Normal 40.0 - 52.0 % AH Workflow SS Hemoglobin (Bld) [Mass/Vol] 14.5 G/dL Normal 13.0 - 17.5 G/dL AH Workflow SS LDH Lactate to pyruvate reaction [Catalytic activity/Vol] 192 1 Normal 120 - 246 U/L ADM SS Lymphocytes (Bld) [#/Vol] 1.4 103/mcL Normal 0.9 - 4.3 10^3/mcL AH Workflow SS Lymphocytes/100 WBC (Bld) 16.4 % Low 20.0 - 40.0 % AH Workflow SS MCH (RBC) [Entitic mass] 31.6 pg Normal 27.0 - 33.0 pg AH Workflow SS MCHC 33.5 G/dL Normal 32.0 - 36.0 G/dL Workflow SS MCV (RBC) [Entitic vol] 94.4 fL Normal 81.0 - 100.0 fL Workflow SS Monocytes (Bld) [#/Vol] 0.8 103/mcL Normal 0.1 - 1.4 10^3/mcL AH Workflow SS Monocytes/100 WBC (Bld) 8.9 % Normal 2.0 - 13.0 % AH Workflow SS Neutrophils (Bld) [#/Vol] 5.5 103/mcL Normal 2.3 - 8.1 10^3/mcL AH Workflow SS Neutrophils/100 WBC (Bld) 64.2 % Normal 50.0 - 75.0 % AH Workflow SS Platelet mean volume (Bld) [Entitic vol] 7.6 fL Normal 6.4 - 10.5 fL Workflow SS Platelets (Bld) [#/Vol] 253 103/mcL Normal 150 - 450 10^3/mcL AH Workflow SS Potassium [Moles/Vol] 4.0 mmol/L Normal 3.5 - 5.0 mEq/L ADM SS Protein [Mass/Vol] 7.0 G/dL Normal 5.7 - 8.2 G/dL ADM SS RBC (Bld) [#/Vol] 4.59 106/mcL Normal 4.50 - 6.0 0 10^6/mcL AH Workflow SS Sodium [Moles/Vol] 140 mmol/L Normal 136 - 145 mEq/L ADM SS TSH Qn 1.201 mIU/mL Normal 0.550 - 4.780 mIU/mL ADM SS Urea nitrogen [Mass/Vol] 22.0 mg/dL Normal 8.0 - 22.0 mg/dL ADM SS Urea nitrogen/Creatinine [Mass ratio] 12.5 ratio Normal 10.0 - 22.0 ratio ADM SS WBC (Bld) [#/Vol] 8.6 103/mcL Normal 4.5 - 10.8 10^3/mcL AH Workflow SS LDHon 06-05-2024 LDH 192 U/L Normal 120-246 [facility] Comment on above: Performed By: #### T SH, FT3, JUANCARLOS, LD, FT4, ADIFF, GFR, ANEU, CBC, CMP #### [address] [address] TSHon 06-05-2024 TSH 1.201 mIU/mL Normal 0.550-4.780 [facility] Comment on above: Performed By: #### T SH, FT3, JUANCARLOS, LD, FT4, ADIFF, GFR, ANEU, CBC, CMP #### [address] [address] .Auto Diffon 04-30-2024 Basophil, Absolute 0.1 10 3/mcL Normal 0.0-0.3 [facility] Comment on above: Performed By: #### T SH, FT3, JUANCARLOS, LD, FT4, ADIFF, GFR, ANEU, CBC, CMP #### [place] [address] Basophils/100 WBC (Bld) 0.8 % Normal 0.0-2.5 [facility] Comment on above: Performed By: #### T SH, FT3, JUANCARLOS, LD, FT4, ADIFF, GFR, ANEU, CBC, CMP #### [place] [id number] Eosinophil, Absolute 0.4 10 3/mcL Normal 0.0-0.7 [facility] Comment on above: Performed By: #### T SH, FT3, JUANCARLOS, LD, FT4, ADIFF, GFR, ANEU, CBC, CMP #### [place] [id number] Eosinophils/100 WBC (Bld) 4.3 % Normal 0.0-6.0 [facility] Comment on above: Performed By: #### T SH, FT3, JUANCARLOS, LD, FT4, ADIFF, GFR, ANEU, CBC, CMP #### [address] [address] Lymphocyte, Absolute 1.6 10 3/mcL Normal 0.9-4.3 [facility] Comment on above: Performed By: #### T SH, FT3, JUANCARLOS, LD, FT4, ADIFF, GFR, ANEU, CBC, CMP #### [address] [address] Lymphocytes/100 WBC (Bld) 19.7 % Low 20.0-40.0 [facility] Comment on above: Performed By: #### T SH, FT3, JUANCARLOS, LD, FT4, ADIFF, GFR, ANEU, CBC, CMP #### [address] [address] Monocyte, Absolute 0.8 10 3/mcL Normal 0.1-1.4 [facility] Comment on above: Performed By: #### T SH, FT3, JUANCARLOS, LD, FT4, ADIFF, GFR, ANEU, CBC, CMP #### [address] [address] Monocytes/100 WBC (Bld) 9.9 % Normal 2.0-13.0 [facility] Comment on above: Performed By: #### T SH, FT3, JUANCARLOS, LD, FT4, ADIFF, GFR, ANEU, CBC, CMP #### [address] [address] Neutrophils/100 WBC (Bld) 65.3 % Normal 50.0-75.0 [facility] Comment on above: Performed By: #### T SH, FT3, JUANCARLOS, LD, FT4, ADIFF, GFR, ANEU, CBC, CMP #### [address] [address] .GFRon 04-30-2024 Estimated Glomerular Filtration Rate 56 ml/min/1.73sqm Normal [facility] Comment on above: Result Comment: Stages of Chronic Kidney Disease (CKD) Stage Description eGFR(ml/min/1.73 sq.m.) CKD 1 Normal kidney function or >=90 normal kindney function with possible kidney damage (ex. Proteinuria) CKD 2 Kidney damage with mild loss 60-89 of kidney function CKD 3a Mild to moderate loss of kidney 45-59 function CKD 3b Moderate to severe loss of 30-44 of kindey function CKD 4 Severe loss of kidney function 15-29 CKD 5 Kidney failure <15 Note: (go live 2024) the eGFR calculation was updated to the 2020 CKD-EPI creatinine equation without a race factor to calculate the eGFR results. Performed By: #### T SH, FT3, JUANCARLOS, LD, FT4, ADIFF, GFR, ANEU, CBC, CMP #### [place] [address] .NEUABSon 04-30-2024 Neutrophil, Absolute 5.4 10 3/mcL Normal 2.3-8.1 [facility] Comment on above: Performed By: #### T SH, FT3, JUANCARLOS, LD, FT4, ADIFF, GFR, ANEU, CBC, CMP #### [place] [address] CBCon 04-30-2024 Erythrocyte distribution width (RBC) [Ratio] 19.8 % High 11.5-15.5 [facility] Comment on above: Performed By: #### T SH, FT3, JUANCARLOS, LD, FT4, ADIFF, GFR, ANEU, CBC, CMP #### [place] [address] Hematocrit (Bld) [Volume fraction] 41.2 % Normal 40.0-52.0 [facility] Comment on above: Performed By: #### T SH, FT3, JUANCARLOS, LD, FT4, ADIFF, GFR, ANEU, CBC, CMP #### [place] [address] Hgb 13.9 G/dL Normal 13.0-17.5 [facility] Comment on above: Performed By: #### T SH, FT3, JUANCARLOS, LD, FT4, ADIFF, GFR, ANEU, CBC, CMP #### [place] [address] MCH (RBC) [Entitic mass] 31.7 pg Normal 27.0-33.0 [facility] Comment on above: Performed By: #### T SH, FT3, JUANCARLOS, LD, FT4, ADIFF, GFR, ANEU, CBC, CMP #### [place] [address] MCHC 33.8 G/dL Normal 32.0-36.0 [facility] Comment on above: Performed By: #### T SH, FT3, JUANCARLOS, LD, FT4, ADIFF, GFR, ANEU, CBC, CMP #### [place] [address] MCV (RBC) [Entitic vol] 93.9 fL Normal 81.0-100.0 [facility] Comment on above: Performed By: #### T SH, FT3, JUANCARLOS, LD, FT4, ADIFF, GFR, ANEU, CBC, CMP #### [place] [address] Platelet 328 10 3/mcL Normal 150-450 [facility] Comment on above: Performed By: #### T SH, FT3, JUANCARLOS, LD, FT4, ADIFF, GFR, ANEU, CBC, CMP #### [place] [address] Platelet mean volume (Bld) [Entitic vol] 6.8 fL Normal 6.4-10.5 [facility] Comment on above: Performed By: #### T SH, FT3, JUANCARLOS, LD, FT4, ADIFF, GFR, ANEU, CBC, CMP #### [place] [address] RBC 4.39 10 6/mcL Low 4.50-6.00 [facility] Comment on above: Performed By: #### T SH, FT3, JUANCARLOS, LD, FT4, ADIFF, GFR, ANEU, CBC, CMP #### [place] [address] WBC 8.3 10 3/mcL Normal 4.5-10.8 [facility] Comment on above: Performed By: #### T SH, FT3, JUANCARLOS, LD, FT4, ADIFF, GFR, ANEU, CBC, CMP #### [address] [address] CMPon 04-30-2024 Albumin Level 3.7 G/dL Normal 3.2-4.8 [facility] Comment on above: Performed By: #### T SH, FT3, JUANCARLOS, LD, FT4, ADIFF, GFR, ANEU, CBC, CMP #### [place] [address] Albumin/Globulin [Mass ratio] 1.1 {ratio} Normal 0.9-1.6 [facility] Comment on above: Performed By: #### T SH, FT3, JUANCARLOS, LD, FT4, ADIFF, GFR, ANEU, CBC, CMP #### [place] [address] ALP [Catalytic activity/Vol] 74 U/L Normal 38-126 [facility] Comment on above: Performed By: #### T SH, FT3, JUANCARLOS, LD, FT4, ADIFF, GFR, ANEU, CBC, CMP #### [address] [address] ALT [Catalytic activity/Vol] 15 U/L Normal 12-55 [facility] Comment on above: Performed By: #### T SH, FT3, JUANCARLOS, LD, FT4, ADIFF, GFR, ANEU, CBC, CMP #### [address] [address] AST [Catalytic activity/Vol] 22 U/L Normal 8-34 [facility] Comment on above: Performed By: #### T SH, FT3, JUANCARLOS, LD, FT4, ADIFF, GFR, ANEU, CBC, CMP #### [place] [id number] Bili Total 0.60 mg/dL Normal 0.20-1.20 [facility] Comment on above: Result Comment: Use of this assay is not recommended for patients undergoing treatment with eltrombopag due to the potential for falsely elevated results. Performed By: #### T SH, FT3, JUANCARLOS, LD, FT4, ADIFF, GFR, ANEU, CBC, CMP #### [place] [id number] BUN/Creatinine Ratio 14.7 ratio Normal 10.0-22.0 [facility] Comment on above: Performed By: #### T SH, FT3, JUANCARLOS, LD, FT4, ADIFF, GFR, ANEU, CBC, CMP #### [place] [id number] Calcium [Mass/Vol] 9.6 mg/dL Normal 8.7-10.4 [facility] Comment on above: Performed By: #### T SH, FT3, JUANCARLOS, LD, FT4, ADIFF, GFR, ANEU, CBC, CMP #### [place] [id number] Chloride [Moles/Vol] 102 mmol/L Normal 98-110 [facility] Comment on above: Performed By: #### T SH, FT3, JUANCARLOS, LD, FT4, ADIFF, GFR, ANEU, CBC, CMP #### [address] [address] CO2 [Moles/Vol] 27 mmol/L Normal 22-32 [facility] Comment on above: Performed By: #### T SH, FT3, JUANCARLOS, LD, FT4, ADIFF, GFR, ANEU, CBC, CMP #### [place] [id number] Creatinine [Mass/Vol] 1.56 mg/dL High 0.60-1.40 [facility] Comment on above: Result Comment: Test ing performed on [employer] analyzer using enzymatic creatinine methodology. Performed By: #### T SH, FT3, JUANCARLOS, LD, FT4, ADIFF, GFR, ANEU, CBC, CMP #### [place] [id number] Electrolyte Balance 8.0 mEq/L Normal 4.0-15.0 [facility] Comment on above: Performed By: #### T SH, FT3, JUANCARLOS, LD, FT4, ADIFF, GFR, ANEU, CBC, CMP #### [place] [id number] Globulin 3.3 G/dL Normal 1.5-3.8 [facility] Comment on above: Performed By: #### T SH, FT3, JUANCARLOS, LD, FT4, ADIFF, GFR, ANEU, CBC, CMP #### [address] [address] Glucose [Mass/Vol] 96 mg/dL Normal 70-110 [facility] Comment on above: Performed By: #### T SH, FT3, JUANCARLOS, LD, FT4, ADIFF, GFR, ANEU, CBC, CMP #### [place] [id number] Potassium [Moles/Vol] 4.3 mmol/L Normal 3.5-5.0 [facility] Comment on above: Performed By: #### T SH, FT3, JUANCARLOS, LD, FT4, ADIFF, GFR, ANEU, CBC, CMP #### [place] [id number] Sodium [Moles/Vol] 137 mmol/L Normal 136-145 [facility] Comment on above: Performed By: #### T SH, FT3, JUANCARLOS, LD, FT4, ADIFF, GFR, ANEU, CBC, CMP #### [address] [address] Total Protein 7.0 G/dL Normal 5.7-8.2 [facility] Comment on above: Performed By: #### T SH, FT3, JUANCARLOS, LD, FT4, ADIFF, GFR, ANEU, CBC, CMP #### [place] [id number] Urea nitrogen [Mass/Vol] 23.0 mg/dL High 8.0-22.0 [facility] Comment on above: Performed By: #### T SH, FT3, JUANCARLOS, LD, FT4, ADIFF, GFR, ANEU, CBC, CMP #### [address] [address] CORTon 04-30-2024 Cortisol Level 8.3 mcg/dL Normal [facility] Comment on above: Result Comment: Juancarlos isol AM Reference Range 6.5-26.0 mcg/dL Cortisol PM Reference Range 3.5-15.0 mcg/dL Performed By: #### T SH, FT3, JUANCARLOS, LD, FT4, ADIFF, GFR, ANEU, CBC, CMP #### [place] [address] FT3on 04-30-2024 Free T3 [Mass/Vol] 4.16 pg/mL Normal 2.30-4.20 [facility] Comment on above: Performed By: #### T SH, FT3, JUANCARLOS, LD, FT4, ADIFF, GFR, ANEU, CBC, CMP #### [place] [address] FT4on 04-30-2024 Free T4 [Mass/Vol] 1.81 ng/dL High 0.89-1.76 [facility] Comment on above: Result Comment: No te - New Reference Range in effect 19 Performed By: #### T SH, FT3, JUANCARLOS, LD, FT4, ADIFF, GFR, ANEU, CBC, CMP #### [place] [address] LABORATORYOrdered By: SYSTEM SYSTEM on 04-30-2024 Albumin BCP dye [Mass/Vol] 3.7 G/dL Normal 3.2 - 4.8 G/dL ADM SS Albumin/Globulin [Mass ratio] 1.1 {ratio} Normal 0.9 - 1.6 ratio ADM SS ALP [Catalytic activity/Vol] 74 U/L Normal 38 - 126 U/L ADM SS ALT No additional P-5'-P [Catalytic activity/Vol] 15 U/L Normal 12 - 55 U/L ADM SS AST [Catalytic activity/Vol] 22 U/L Normal 8 - 34 U/L ADM SS Basophils (Bld) [#/Vol] 0.1 103/mcL Normal 0.0 - 0.3 10^3/mcL Workflow SS Basophils/100 WBC (Bld) 0.8 % Normal 0.0 - 2.5 % Workflow SS Bilirubin [Mass/Vol] 0.60 mg/dL Normal 0.20 - 1.20 mg/dL ADM SS Comment on above: Interpretive Data: U se of this assay is not recommended for patients undergoing treatment with eltrombopag due to the potential for falsely elevated results. Calcium [Mass/Vol] 9.6 mg/dL Normal 8.7 - 10. 4 mg/dL AH ADM SS Chloride [Moles/Vol] 102 mmol/L Normal 98 - 11 0 mEq/L AH ADM SS CO2 [Moles/Vol] 27 mmol/L Normal 22 - 32 mEq/L AH ADM SS Cortisol [Mass/Vol] 8.3 ug/dL Invalid Interpretation Code AH ADM SS Comment on above: Interpretive Data: C ortisol AM Reference Range 6.5-26.0 mcg/dL Cortisol PM Reference Range 3.5-15.0 mcg/dL Creatinine [Mass/Vol] 1.56 mg/dL High 0.60 - 1.40 mg/dL ADM SS Comment on above: Interpretive Data: T esting performed on [employer] analyzer using enzymatic creatinine methodology. Electrolyte Balance 8.0 mEq/L Normal 4.0 - 15 .0 mEq/L ADM SS Eosinophils (Bld) [#/Vol] 0.4 103/mcL Normal 0.0 - 0.7 10^3/mcL Workflow SS Eosinophils/100 WBC (Bld) 4.3 % Normal 0.0 - 6.0 % Workflow SS Erythrocyte distribution width (RBC) [Ratio] 19.8 % High 11.5 - 15.5 % Workflow SS Estimated Glomerular Filtration Rate 56 ml/min/1.73sqm Invalid Interpretation Code ADM SS Comment on above: Interpretive Data: Stages of Chronic Kidney Disease (CKD) Stage Description eGFR(ml/min/1.73 sq.m.) CKD 1 Normal kidney function or >=90 normal kindney function with possible kidney damage (ex. Proteinuria) CKD 2 Kidney damage with mild loss 60-89 of kidney function CKD 3a Mild to moderate loss of kidney 45-59 function CKD 3b Moderate to severe loss of 30-44 of kindey function CKD 4 Severe loss of kidney function 15-29 CKD 5 Kidney failure <15 Note: (go live 2024) the eGFR calculation was updated to the 2020 CKD-EPI creatinine equation without a race factor to calculate the eGFR results. Free T3 [Mass/Vol] 4.16 pg/mL Normal 2.30 - 4. 20 pg/mL AH ADM SS Free T4 [Mass/Vol] 1.81 ng/dL High 0.89 - 1. 76 ng/dL ADM SS Comment on above: Interpretive Data: * *Note - New Reference Range in effect 19 Globulin 3.3 G/dL Normal 1.5 - 3.8 G/dL ADM SS Glucose [Mass/Vol] 96 mg/dL Normal 70 - 110 mg/dL ADM SS Hematocrit (Bld) [Volume fraction] 41.2 % Normal 40.0 - 52.0 % Workflow SS Hemoglobin (Bld) [Mass/Vol] 13.9 G/dL Normal 13.0 - 17.5 G/dL Workflow SS LDH Lactate to pyruvate reaction [Catalytic activity/Vol] 189 1 Normal 120 - 246 U/L ADM SS Lymphocytes (Bld) [#/Vol] 1.6 103/mcL Normal 0.9 - 4.3 10^3/mcL Workflow SS Lymphocytes/100 WBC (Bld) 19.7 % Low 20.0 - 40.0 % Workflow SS MCH (RBC) [Entitic mass] 31.7 pg Normal 27.0 - 33.0 pg Workflow SS MCHC 33.8 G/dL Normal 32.0 - 36.0 G/dL Workflow SS MCV (RBC) [Entitic vol] 93.9 fL Normal 81.0 - 100.0 fL Workflow SS Monocytes (Bld) [#/Vol] 0.8 103/mcL Normal 0.1 - 1.4 10^3/mcL Workflow SS Monocytes/100 WBC (Bld) 9.9 % Normal 2.0 - 13.0 % Workflow SS Neutrophils (Bld) [#/Vol] 5.4 103/mcL Normal 2.3 - 8.1 10^3/mcL Workflow SS Neutrophils/100 WBC (Bld) 65.3 % Normal 50.0 - 75.0 % Workflow SS Platelet mean volume (Bld) [Entitic vol] 6.8 fL Normal 6.4 - 10.5 fL Workflow SS Platelets (Bld) [#/Vol] 328 103/mcL Normal 150 - 450 10^3/mcL Workflow SS Potassium [Moles/Vol] 4.3 mmol/L Normal 3.5 - 5.0 mEq/L ADM SS Protein [Mass/Vol] 7.0 G/dL Normal 5.7 - 8.2 G/dL ADM SS RBC (Bld) [#/Vol] 4.39 106/mcL Low 4.50 - 6.0 0 10^6/mcL AH Workflow SS Sodium [Moles/Vol] 137 mmol/L Normal 136 - 145 mEq/L AH ADM SS TSH Qn 3.504 mIU/mL Normal 0.550 - 4.780 mIU/mL AH ADM SS Urea nitrogen [Mass/Vol] 23.0 mg/dL High 8.0 - 22.0 mg/dL AH ADM SS Urea nitrogen/Creatinine [Mass ratio] 14.7 ratio Normal 10.0 - 22.0 ratio AH ADM SS WBC (Bld) [#/Vol] 8.3 103/mcL Normal 4.5 - 10.8 10^3/mcL AH Workflow SS LDHon 04-30-2024 LDH 189 U/L Normal 120-246 [facility] Comment on above: Performed By: #### T SH, FT3, JUANCARLOS, LD, FT4, ADIFF, GFR, ANEU, CBC, CMP #### [place] [address] TSHon 04-30-2024 TSH 3.504 mIU/mL Normal 0.550-4.780 [facility] Comment on above: Performed By: #### T SH, FT3, JUANCARLOS, LD, FT4, ADIFF, GFR, ANEU, CBC, CMP #### [place] [address] .Auto Diffon 04-02-2024 Basophil, Absolute 0.1 10 3/mcL Normal 0.0-0.3 [facility] Comment on above: Performed By: #### T SH, FT3, JUANCARLOS, LD, FT4, ADIFF, GFR, ANEU, CBC, CMP #### [place] [address] Basophils/100 WBC (Bld) 1.4 % Normal 0.0-2.5 [facility] Comment on above: Performed By: #### T SH, FT3, JUANCARLOS, LD, FT4, ADIFF, GFR, ANEU, CBC, CMP #### [place] [address] Eosinophil, Absolute 0.8 10 3/mcL High 0.0-0.7 [facility] Comment on above: Performed By: #### T SH, FT3, JUANCARLOS, LD, FT4, ADIFF, GFR, ANEU, CBC, CMP #### [address] [address] Eosinophils/100 WBC (Bld) 8.8 % High 0.0-6.0 [facility] Comment on above: Performed By: #### T SH, FT3, JUANCARLOS, LD, FT4, ADIFF, GFR, ANEU, CBC, CMP #### [address] [address] Lymphocyte, Absolute 1.8 10 3/mcL Normal 0.9-4.3 [facility] Comment on above: Performed By: #### T SH, FT3, JUANCARLOS, LD, FT4, ADIFF, GFR, ANEU, CBC, CMP #### [address] [address] Lymphocytes/100 WBC (Bld) 19.0 % Low 20.0-40.0 [facility] Comment on above: Performed By: #### T SH, FT3, JUANCARLOS, LD, FT4, ADIFF, GFR, ANEU, CBC, CMP #### [address] [address] Monocyte, Absolute 0.7 10 3/mcL Normal 0.1-1.4 [facility] Comment on above: Performed By: #### T SH, FT3, JUANCARLOS, LD, FT4, ADIFF, GFR, ANEU, CBC, CMP #### [address] [address] Monocytes/100 WBC (Bld) 7.6 % Normal 2.0-13.0 [facility] Comment on above: Performed By: #### T SH, FT3, JUANCARLOS, LD, FT4, ADIFF, GFR, ANEU, CBC, CMP #### [address] [address] Neutrophils/100 WBC (Bld) 63.2 % Normal 50.0-75.0 [facility] Comment on above: Performed By: #### T SH, FT3, JUANCARLOS, LD, FT4, ADIFF, GFR, ANEU, CBC, CMP #### [address] [address] .GFRon 04-02-2024 Estimated Glomerular Filtration Rate 41 ml/min/1.73sqm Normal [facility] Comment on above: Result Comment: Stages of Chronic Kidney Disease (CKD) Stage Description eGFR(ml/min/1.73 sq.m.) CKD 1 Normal kidney function or >=90 normal kindney function with possible kidney damage (ex. Proteinuria) CKD 2 Kidney damage with mild loss 60-89 of kidney function CKD 3a Mild to moderate loss of kidney 45-59 function CKD 3b Moderate to severe loss of 30-44 of kindey function CKD 4 Severe loss of kidney function 15-29 CKD 5 Kidney failure <15 Note: (go live 2024) the eGFR calculation was updated to the 2020 CKD-EPI creatinine equation without a race factor to calculate the eGFR results. Performed By: #### T SH, FT3, JUANCARLOS, LD, FT4, ADIFF, GFR, ANEU, CBC, CMP #### [address] [address] .NEUABSon 04-02-2024 Neutrophil, Absolute 5.9 10 3/mcL Normal 2.3-8.1 [facility] Comment on above: Performed By: #### T SH, FT3, JUANCARLOS, LD, FT4, ADIFF, GFR, ANEU, CBC, CMP #### [address] [address] CBCon 04-02-2024 Erythrocyte distribution width (RBC) [Ratio] 18.1 % High 11.5-15.5 [facility] Comment on above: Performed By: #### T SH, FT3, JUANCARLOS, LD, FT4, ADIFF, GFR, ANEU, CBC, CMP #### [address] [address] Hematocrit (Bld) [Volume fraction] 41.1 % Normal 40.0-52.0 [facility] Comment on above: Performed By: #### T SH, FT3, JUANCARLOS, LD, FT4, ADIFF, GFR, ANEU, CBC, CMP #### [address] [address] Hgb 13.7 G/dL Normal 13.0-17.5 [facility] Comment on above: Performed By: #### T SH, FT3, JUANCARLOS, LD, FT4, ADIFF, GFR, ANEU, CBC, CMP #### [place] [address] MCH (RBC) [Entitic mass] 30.5 pg Normal 27.0-33.0 [facility] Comment on above: Performed By: #### T SH, FT3, JUANCARLOS, LD, FT4, ADIFF, GFR, ANEU, CBC, CMP #### [place] [address] MCHC 33.3 G/dL Normal 32.0-36.0 [facility] Comment on above: Performed By: #### T SH, FT3, JUANCARLOS, LD, FT4, ADIFF, GFR, ANEU, CBC, CMP #### [place] [address] MCV (RBC) [Entitic vol] 91.7 fL Normal 81.0-100.0 [facility] Comment on above: Performed By: #### T SH, FT3, JUANCARLOS, LD, FT4, ADIFF, GFR, ANEU, CBC, CMP #### [place] [address] Platelet 273 10 3/mcL Normal 150-450 [facility] Comment on above: Performed By: #### T SH, FT3, JUANCARLOS, LD, FT4, ADIFF, GFR, ANEU, CBC, CMP #### [place] [address] Platelet mean volume (Bld) [Entitic vol] 7.5 fL Normal 6.4-10.5 [facility] Comment on above: Performed By: #### T SH, FT3, JUANCARLOS, LD, FT4, ADIFF, GFR, ANEU, CBC, CMP #### [place] [address] RBC 4.48 10 6/mcL Low 4.50-6.00 [facility] Comment on above: Performed By: #### T SH, FT3, JUANCARLOS, LD, FT4, ADIFF, GFR, ANEU, CBC, CMP #### [address] [address] WBC 9.4 10 3/mcL Normal 4.5-10.8 [facility] Comment on above: Performed By: #### T SH, FT3, JUANCARLOS, LD, FT4, ADIFF, GFR, ANEU, CBC, CMP #### [address] [address] CMPon 04-02-2024 Albumin Level 3.6 G/dL Normal 3.2-4.8 [facility] Comment on above: Performed By: #### T SH, FT3, JUANCARLOS, LD, FT4, ADIFF, GFR, ANEU, CBC, CMP #### [place] [id number] Albumin/Globulin [Mass ratio] 1.0 {ratio} Normal 0.9-1.6 [facility] Comment on above: Performed By: #### T SH, FT3, JUANCARLOS, LD, FT4, ADIFF, GFR, ANEU, CBC, CMP #### [place] [id number] ALP [Catalytic activity/Vol] 95 U/L Normal 38-126 [facility] Comment on above: Performed By: #### T SH, FT3, JUANCARLOS, LD, FT4, ADIFF, GFR, ANEU, CBC, CMP #### [address] [address] ALT [Catalytic activity/Vol] 12 U/L Normal 12-55 [facility] Comment on above: Performed By: #### T SH, FT3, JUANCARLOS, LD, FT4, ADIFF, GFR, ANEU, CBC, CMP #### [address] [address] AST [Catalytic activity/Vol] 17 U/L Normal 8-34 [facility] Comment on above: Performed By: #### T SH, FT3, JUANCARLOS, LD, FT4, ADIFF, GFR, ANEU, CBC, CMP #### [place] [id number] Bili Total 0.50 mg/dL Normal 0.20-1.20 [facility] Comment on above: Result Comment: Use of this assay is not recommended for patients undergoing treatment with eltrombopag due to the potential for falsely elevated results. Performed By: #### T SH, FT3, JUANCARLOS, LD, FT4, ADIFF, GFR, ANEU, CBC, CMP #### [place] [address] BUN/Creatinine Ratio 12.9 ratio Normal 10.0-22.0 [facility] Comment on above: Performed By: #### T SH, FT3, JUANCARLOS, LD, FT4, ADIFF, GFR, ANEU, CBC, CMP #### [place] [address] Calcium [Mass/Vol] 9.1 mg/dL Normal 8.7-10.4 [facility] Comment on above: Performed By: #### T SH, FT3, JUANCARLOS, LD, FT4, ADIFF, GFR, ANEU, CBC, CMP #### [place] [id number] Chloride [Moles/Vol] 102 mmol/L Normal 98-110 [facility] Comment on above: Performed By: #### T SH, FT3, JUANCARLOS, LD, FT4, ADIFF, GFR, ANEU, CBC, CMP #### [place] [id number] CO2 [Moles/Vol] 34 mmol/L High 22-32 [facility] MAIN Comment on above: Performed By: #### T SH, FT3, JUANCARLOS, LD, FT4, ADIFF, GFR, ANEU, CBC, CMP #### [place] [address] Creatinine [Mass/Vol] 2.02 mg/dL High 0.60-1.40 [facility] MAIN Comment on above: Result Comment: Test ing performed on [employer] analyzer using enzymatic creatinine methodology. Performed By: #### T SH, FT3, JUANCARLOS, LD, FT4, ADIFF, GFR, ANEU, CBC, CMP #### [place] [address] Electrolyte Balance 4.0 mEq/L Normal 4.0-15.0 [facility] MAIN Comment on above: Performed By: #### T SH, FT3, JUANCARLOS, LD, FT4, ADIFF, GFR, ANEU, CBC, CMP #### [place] [id number] Globulin 3.5 G/dL Normal 1.5-3.8 [facility] Comment on above: Performed By: #### T SH, FT3, JUANCARLOS, LD, FT4, ADIFF, GFR, ANEU, CBC, CMP #### [place] [id number] Glucose [Mass/Vol] 115 mg/dL High 70-110 [facility]IN Comment on above: Performed By: #### T SH, FT3, JUANCARLOS, LD, FT4, ADIFF, GFR, ANEU, CBC, CMP #### [place] [address] Potassium [Moles/Vol] 4.3 mmol/L Normal 3.5-5.0 [facility]IN Comment on above: Performed By: #### T SH, FT3, JUANCARLOS, LD, FT4, ADIFF, GFR, ANEU, CBC, CMP #### [place] [address] Sodium [Moles/Vol] 140 mmol/L Normal 136-145 [facility] Comment on above: Performed By: #### T SH, FT3, JUANCARLOS, LD, FT4, ADIFF, GFR, ANEU, CBC, CMP #### [place] [address] Total Protein 7.1 G/dL Normal 5.7-8.2 [facility] Comment on above: Performed By: #### T SH, FT3, JUANCARLOS, LD, FT4, ADIFF, GFR, ANEU, CBC, CMP #### [place] [id number] Urea nitrogen [Mass/Vol] 26.0 mg/dL High 8.0-22.0 [facility] Comment on above: Performed By: #### T SH, FT3, JUANCARLOS, LD, FT4, ADIFF, GFR, ANEU, CBC, CMP #### [place] [id number] CORTon 04-02-2024 Cortisol Level 15.4 mcg/dL Normal [facility] Comment on above: Result Comment: Juancarlos isol AM Reference Range 6.5-26.0 mcg/dL Cortisol PM Reference Range 3.5-15.0 mcg/dL Performed By: #### T SH, FT3, JUANCARLOS, LD, FT4, ADIFF, GFR, ANEU, CBC, CMP #### [place] [address] FT3on 04-02-2024 Free T3 [Mass/Vol] 3.44 pg/mL Normal 2.30-4.20 [facility]IN Comment on above: Performed By: #### T SH, FT3, JUANCARLOS, LD, FT4, ADIFF, GFR, ANEU, CBC, CMP #### [place] [address] FT4on 04-02-2024 Free T4 [Mass/Vol] 1.62 ng/dL Normal 0.89-1.76 [facility]IN Comment on above: Result Comment: No te - New Reference Range in effect 19 Performed By: #### T SH, FT3, JUANCARLOS, LD, FT4, ADIFF, GFR, ANEU, CBC, CMP #### [place] [address] LABORATORYOrdered By: SYSTEM SYSTEM on 04-02-2024 Albumin BCP dye [Mass/Vol] 3.6 G/dL Normal 3.2 - 4.8 G/dL ADM SS Albumin/Globulin [Mass ratio] 1.0 {ratio} Normal 0.9 - 1.6 ratio ADM SS ALP [Catalytic activity/Vol] 95 U/L Normal 38 - 126 U/L ADM SS ALT No additional P-5'-P [Catalytic activity/Vol] 12 U/L Normal 12 - 55 U/L ADM SS AST [Catalytic activity/Vol] 17 U/L Normal 8 - 34 U/L ADM SS Basophils (Bld) [#/Vol] 0.1 103/mcL Normal 0.0 - 0.3 10^3/mcL Workflow SS Basophils/100 WBC (Bld) 1.4 % Normal 0.0 - 2.5 % Workflow SS Bilirubin [Mass/Vol] 0.50 mg/dL Normal 0.20 - 1.20 mg/dL ADM SS Comment on above: Interpretive Data: U se of this assay is not recommended for patients undergoing treatment with eltrombopag due to the potential for falsely elevated results. Calcium [Mass/Vol] 9.1 mg/dL Normal 8.7 - 10. 4 mg/dL ADM SS Chloride [Moles/Vol] 102 mmol/L Normal 98 - 11 0 mEq/L ADM SS CO2 [Moles/Vol] 34 mmol/L High 22 - 32 mEq/L ADM SS Cortisol [Mass/Vol] 15.4 ug/dL Invalid Interpretation Code ADM SS Comment on above: Interpretive Data: C ortisol AM Reference Range 6.5-26.0 mcg/dL Cortisol PM Reference Range 3.5-15.0 mcg/dL Creatinine [Mass/Vol] 2.02 mg/dL High 0.60 - 1.40 mg/dL ADM SS Comment on above: Interpretive Data: T esting performed on [employer] analyzer using enzymatic creatinine methodology. Electrolyte Balance 4.0 mEq/L Normal 4.0 - 15 .0 mEq/L ADM SS Eosinophils (Bld) [#/Vol] 0.8 103/mcL High 0.0 - 0.7 10^3/mcL Workflow SS Eosinophils/100 WBC (Bld) 8.8 % High 0.0 - 6.0 % Workflow SS Erythrocyte distribution width (RBC) [Ratio] 18.1 % High 11.5 - 15.5 % Workflow SS Estimated Glomerular Filtration Rate 41 ml/min/1.73sqm Invalid Interpretation Code ADM SS Comment on above: Interpretive Data: Stages of Chronic Kidney Disease (CKD) Stage Description eGFR(ml/min/1.73 sq.m.) CKD 1 Normal kidney function or >=90 normal kindney function with possible kidney damage (ex. Proteinuria) CKD 2 Kidney damage with mild loss 60-89 of kidney function CKD 3a Mild to moderate loss of kidney 45-59 function CKD 3b Moderate to severe loss of 30-44 of kindey function CKD 4 Severe loss of kidney function 15-29 CKD 5 Kidney failure <15 Note: (go live 2024) the eGFR calculation was updated to the 2020 CKD-EPI creatinine equation without a race factor to calculate the eGFR results. Free T3 [Mass/Vol] 3.44 pg/mL Normal 2.30 - 4. 20 pg/mL AH ADM SS Free T4 [Mass/Vol] 1.62 ng/dL Normal 0.89 - 1. 76 ng/dL AH ADM SS Comment on above: Interpretive Data: * *Note - New Reference Range in effect 19 Globulin 3.5 G/dL Normal 1.5 - 3.8 G/dL AH ADM SS Glucose [Mass/Vol] 115 mg/dL High 70 - 110 mg/dL AH ADM SS Hematocrit (Bld) [Volume fraction] 41.1 % Normal 40.0 - 52.0 % AH Workflow SS Hemoglobin (Bld) [Mass/Vol] 13.7 G/dL Normal 13.0 - 17.5 G/dL AH Workflow SS LDH Lactate to pyruvate reaction [Catalytic activity/Vol] 169 1 Normal 120 - 246 U/L ADM SS Lymphocytes (Bld) [#/Vol] 1.8 103/mcL Normal 0.9 - 4.3 10^3/mcL AH Workflow SS Lymphocytes/100 WBC (Bld) 19.0 % Low 20.0 - 40.0 % AH Workflow SS MCH (RBC) [Entitic mass] 30.5 pg Normal 27.0 - 33.0 pg AH Workflow SS MCHC 33.3 G/dL Normal 32.0 - 36.0 G/dL AH Workflow SS MCV (RBC) [Entitic vol] 91.7 fL Normal 81.0 - 100.0 fL AH Workflow SS Monocytes (Bld) [#/Vol] 0.7 103/mcL Normal 0.1 - 1.4 10^3/mcL AH Workflow SS Monocytes/100 WBC (Bld) 7.6 % Normal 2.0 - 13.0 % AH Workflow SS Neutrophils (Bld) [#/Vol] 5.9 103/mcL Normal 2.3 - 8.1 10^3/mcL AH Workflow SS Neutrophils/100 WBC (Bld) 63.2 % Normal 50.0 - 75.0 % AH Workflow SS Platelet mean volume (Bld) [Entitic vol] 7.5 fL Normal 6.4 - 10.5 fL AH Workflow SS Platelets (Bld) [#/Vol] 273 103/mcL Normal 150 - 450 10^3/mcL AH Workflow SS Potassium [Moles/Vol] 4.3 mmol/L Normal 3.5 - 5.0 mEq/L ADM SS Protein [Mass/Vol] 7.1 G/dL Normal 5.7 - 8.2 G/dL ADM SS RBC (Bld) [#/Vol] 4.48 106/mcL Low 4.50 - 6.0 0 10^6/mcL Workflow SS Sodium [Moles/Vol] 140 mmol/L Normal 136 - 145 mEq/L ADM SS TSH Qn 1.657 mIU/mL Normal 0.550 - 4.780 mIU/mL ADM SS Urea nitrogen [Mass/Vol] 26.0 mg/dL High 8.0 - 22.0 mg/dL ADM SS Urea nitrogen/Creatinine [Mass ratio] 12.9 ratio Normal 10.0 - 22.0 ratio ADM SS WBC (Bld) [#/Vol] 9.4 103/mcL Normal 4.5 - 10.8 10^3/mcL Workflow SS LDHon 04-02-2024 LDH 169 U/L Normal 120-246 [facility] Comment on above: Performed By: #### T SH, FT3, JUANCARLOS, LD, FT4, ADIFF, GFR, ANEU, CBC, CMP #### [place] [address] TSHon 04-02-2024 TSH 1.657 mIU/mL Normal 0.550-4.780 [facility] Comment on above: Performed By: #### T SH, FT3, JUANCARLOS, LD, FT4, ADIFF, GFR, ANEU, CBC, CMP #### [place] [address] .Urinalysis Microscopic (AO) on 03-29-2024 UA Bacteria 4+ /hpf Abnormal [facility] Comment on above: Performed By: #### U A, UAMICAO #### [address] [address] UA RBC 0-5 Abnormal None Seen [facility] Comment on above: Performed By: #### U A, UAMICAO #### [address] [address] UA Squam Epithelial 0-5 Abnormal None Seen [facility] Comment on above: Performed By: #### U A, UAMICAO #### [facility] [address] [place], [place] [address] UA WBC 0-5 Abnormal None Seen [facility] Comment on above: Performed By: #### U A, UAMICAO #### [facility] [address] [place], [place] [address] LABORATORYOrdered By: Aishwarya corona on 03-29-2024 Appearance (U) Cloudy *ABN* (03/29/24 4:27 PM) Invalid Interpretation Code Clear AO Auto Urine SS Bacteria LM.HPF (Urine sed) [#/Area] 4 /[HPF] Invalid Interpretation Code AO Auto Urine SS Bilirubin Ql (U) Negative (03/29/24 4:27 PM) Normal Negative AO Auto Urine SS Color (U) Yellow (03/29/24 4:27 PM) Normal AO Auto Urine SS Glucose Test strip (U) [Mass/Vol] 100 mg/dL Invalid Interpretation Code Negative AO Auto Urine SS Hemoglobin Auto test strip (U) [Mass/Vol] Trace *ABN* (03/29/24 4:27 PM) Invalid Interpretation Code Negative AO Auto Urine SS Ketones Ql (U) Negative Normal Negative AO Auto Ur ine SS UA Leuk Est Negative (03/29/24 4:27 PM) Normal Negative AO Auto Urine SS UA Nitrite Negative (03/29/24 4:27 PM) Normal Negative AO Auto Urine SS UA pH 5.0 (03/29/24 4:27 PM) Normal 5.0 - 8.0 AO Auto Urine SS UA Protein Negative Normal Negative AO Auto Urine SS UA RBC 0-5 /HPF Invalid Interpretation Code None Seen AO Auto Urine SS UA Spec Grav 1.010 *ABN* (03/29/24 4:27 PM) Invalid Interpretation Code 1.015-1.025 AO Auto Urine SS UA Specimen Type Void (03/29/24 4:27 PM) Normal AO Auto Urine SS UA Squam Epithelial 0-5 /HPF Invalid Interpretation Code None Seen AO Auto Urine SS UA Urobilinogen 0.2 E.U./dL Normal 0.2-1.0 AO Auto Urine SS WBC LM.HPF (Urine sed) [#/Area] 0-5 /HPF Invalid Interpretation Code None Seen AO Auto Urine SS UAon 03-29-2024 Color (U) Yellow Normal [facility] Comment on above: Performed By: #### U A, UAMICAO #### [place] [address] Glucose (U) [Mass/Vol] 100 mg/dL Abnormal Negative [facility] Comment on above: Performed By: #### U A, UAMICAO #### [place] [address] Ketones Ql (U) Negative Normal Negative [facility] Comment on above: Performed By: #### U A, UAMICAO #### [place] [address] UA Appear Cloudy Abnormal Clear [facility] Comment on above: Performed By: #### U A, UAMICAO #### [place] [address] UA Blood Trace Abnormal Negative [facility] Comment on above: Performed By: #### U A, UAMICAO #### [place] [address] UA Leuk Est Negative Normal Negative [facility] Comment on above: Performed By: #### U A, UAMICAO #### [place] [address] UA Nitrite Negative Normal Negative [facility] Comment on above: Performed By: #### U A, UAMICAO #### [place] [address] UA pH 5.0 Normal 5.0 - 8.0 [facility] Comment on above: Performed By: #### U A, UAMICAO #### [place] [address] UA Protein Negative Normal Negative [facility] Comment on above: Performed By: #### U A, UAMICAO #### [place] [address] UA Spec Grav 1.010 Abnormal 1.015-1.025 [facility] Comment on above: Performed By: #### U A UAMICAO #### [address] [address] UA Specimen Type Void Normal [facility] Comment on above: Performed By: #### U Nicolas UAMICAO #### [place] [id number] [place], [place] [address] UA Urobilinogen 0.2 E.U./dL Normal 0.2-1.0 [facility] Comment on above: Performed By: #### U A UAMICAO #### [address] [address] Urobilinogen (U) [Mass/Vol] Negative Normal Negative [facility] Comment on above: Performed By: #### U Nicolas UAMICAO #### [address] [address] .Auto Diffon 03-04-2024 Basophil, Absolute 0.1 10 3/mcL Normal 0.0-0.3 [facility] Comment on above: Performed By: #### T SH, FT3, JUANCARLOS, LD, FT4, ADIFF, GFR, ANEU, CBC, CMP #### [address] [address] Basophils/100 WBC (Bld) 0.9 % Normal 0.0-2.5 [facility] Comment on above: Performed By: #### T SH, FT3, JUANCARLOS, LD, FT4, ADIFF, GFR, ANEU, CBC, CMP #### [address] [address] Eosinophil, Absolute 0.5 10 3/mcL Normal 0.0-0.7 [facility] Comment on above: Performed By: #### T SH, FT3, JUANCARLOS, LD, FT4, ADIFF, GFR, ANEU, CBC, CMP #### [address] [address] Eosinophils/100 WBC (Bld) 6.5 % High 0.0-6.0 [facility] Comment on above: Performed By: #### T SH, FT3, JUANCARLOS, LD, FT4, ADIFF, GFR, ANEU, CBC, CMP #### [address] [address] Lymphocyte, Absolute 1.6 10 3/mcL Normal 0.9-4.3 [facility] Comment on above: Performed By: #### T SH, FT3, JUANCARLOS, LD, FT4, ADIFF, GFR, ANEU, CBC, CMP #### [address] [address] Lymphocytes/100 WBC (Bld) 20.8 % Normal 20.0-40.0 [facility] Comment on above: Performed By: #### T SH, FT3, JUANCARLOS, LD, FT4, ADIFF, GFR, ANEU, CBC, CMP #### [address] [address] Monocyte, Absolute 0.5 10 3/mcL Normal 0.1-1.4 [facility] Comment on above: Performed By: #### T SH, FT3, JUANCARLOS, LD, FT4, ADIFF, GFR, ANEU, CBC, CMP #### [address] [address] Monocytes/100 WBC (Bld) 5.9 % Normal 2.0-13.0 [facility] Comment on above: Performed By: #### T SH, FT3, JUANCARLOS, LD, FT4, ADIFF, GFR, ANEU, CBC, CMP #### [address] [address] Neutrophils/100 WBC (Bld) 65.9 % Normal 50.0-75.0 [facility] Comment on above: Performed By: #### T SH, FT3, JUANCARLOS, LD, FT4, ADIFF, GFR, ANEU, CBC, CMP #### [address] [address] .GFRon 03-04-2024 GFR 59 ml/min/1.73sqm Normal [facility] Comment on above: Result Comment: GFR Population mean for , Non- Americans Ages 20-29 = 116 mL/min/1.73 sq.m. Ages 30-39 = 107 mL/min/1.73 sq.m. Ages 40-49 = 99 mL/min/1.73 sq.m. Ages 50-59 = 93 mL/min/1.73 sq.m. Ages 60-69 = 85 mL/min/1.73 sq.m. Ages 70+ = 75 mL/min/1.73 sq.m. Chronic Kidney Disease: Less than 60 mL/min/1.73 square meters End Stage Renal Disease: Less than 15 mL/min/1.73 square meters Performed By: #### T SH, FT3, JUANCARLOS, LD, FT4, ADIFF, GFR, ANEU, CBC, CMP #### [address] [address] GFR Non- 49 ml/min/1.73sqm Normal [facility] Comment on above: Result Comment: GFR Population mean for , Non- Americans Ages 20-29 = 116 mL/min/1.73 sq.m. Ages 30-39 = 107 mL/min/1.73 sq.m. Ages 40-49 = 99 mL/min/1.73 sq.m. Ages 50-59 = 93 mL/min/1.73 sq.m. Ages 60-69 = 85 mL/min/1.73 sq.m. Ages 70+ = 75 mL/min/1.73 sq.m. Chronic Kidney Disease: Less than 60 mL/min/1.73 square meters End Stage Renal Disease: Less than 15 mL/min/1.73 square meters Performed By: #### T SH, FT3, JUANCARLOS, LD, FT4, ADIFF, GFR, ANEU, CBC, CMP #### [address] [address] .NEUABSon 03-04-2024 Neutrophil, Absolute 5.1 10 3/mcL Normal 2.3-8.1 [facility] Comment on above: Performed By: #### T SH, FT3, JUANCARLOS, LD, FT4, ADIFF, GFR, ANEU, CBC, CMP #### [address] [address] CBCon 03-04-2024 Erythrocyte distribution width (RBC) [Ratio] 14.7 % Normal 11.5-15.5 [facility] Comment on above: Performed By: #### T SH, FT3, JUANCARLOS, LD, FT4, ADIFF, GFR, ANEU, CBC, CMP #### [place] [address] Hematocrit (Bld) [Volume fraction] 41.7 % Normal 40.0-52.0 [facility] Comment on above: Performed By: #### T SH, FT3, JUANCARLOS, LD, FT4, ADIFF, GFR, ANEU, CBC, CMP #### [place] [address] Hgb 14.0 G/dL Normal 13.0-17.5 [facility] Comment on above: Performed By: #### T SH, FT3, JUANCARLOS, LD, FT4, ADIFF, GFR, ANEU, CBC, CMP #### [place] [address] MCH (RBC) [Entitic mass] 30.5 pg Normal 27.0-33.0 [facility] Comment on above: Performed By: #### T SH, FT3, JUANCARLOS, LD, FT4, ADIFF, GFR, ANEU, CBC, CMP #### [place] [address] MCHC 33.5 G/dL Normal 32.0-36.0 [facility] Comment on above: Performed By: #### T SH, FT3, JUANCARLOS, LD, FT4, ADIFF, GFR, ANEU, CBC, CMP #### [place] [address] MCV (RBC) [Entitic vol] 91.2 fL Normal 81.0-100.0 [facility] Comment on above: Performed By: #### T SH, FT3, JUANCARLOS, LD, FT4, ADIFF, GFR, ANEU, CBC, CMP #### [place] [address] Platelet 147 10 3/mcL Low 150-450 [facility] Comment on above: Performed By: #### T SH, FT3, JUANCARLOS, LD, FT4, ADIFF, GFR, ANEU, CBC, CMP #### [place] [address] Platelet mean volume (Bld) [Entitic vol] 7.0 fL Normal 6.4-10.5 [facility] Comment on above: Performed By: #### T SH, FT3, JUANCARLOS, LD, FT4, ADIFF, GFR, ANEU, CBC, CMP #### [address] [address] RBC 4.58 10 6/mcL Normal 4.50-6.00 [facility] Comment on above: Performed By: #### T SH, FT3, JUANCARLOS, LD, FT4, ADIFF, GFR, ANEU, CBC, CMP #### [place] [address] WBC 7.8 10 3/mcL Normal 4.5-10.8 [facility] Comment on above: Performed By: #### T SH, FT3, JUANCARLOS, LD, FT4, ADIFF, GFR, ANEU, CBC, CMP #### [address] [address] CMPon 03-04-2024 Albumin Level 3.4 G/dL Normal 3.2-4.8 [facility] Comment on above: Performed By: #### T SH, FT3, JUANCARLOS, LD, FT4, ADIFF, GFR, ANEU, CBC, CMP #### [place] [id number] Albumin/Globulin [Mass ratio] 0.9 {ratio} Normal 0.9-1.6 [facility] Comment on above: Performed By: #### T SH, FT3, JUANCARLOS, LD, FT4, ADIFF, GFR, ANEU, CBC, CMP #### [address] [address] ALP [Catalytic activity/Vol] 98 U/L Normal 38-126 [facility] Comment on above: Performed By: #### T SH, FT3, JUANCARLOS, LD, FT4, ADIFF, GFR, ANEU, CBC, CMP #### [place] [id number] ALT [Catalytic activity/Vol] 17 U/L Normal 12-55 [facility] Comment on above: Performed By: #### T SH, FT3, JUANCARLOS, LD, FT4, ADIFF, GFR, ANEU, CBC, CMP #### [address] [address] AST [Catalytic activity/Vol] 13 U/L Normal 8-34 [facility] Comment on above: Performed By: #### T SH, FT3, JUANCARLOS, LD, FT4, ADIFF, GFR, ANEU, CBC, CMP #### [address] [address] Bili Total 0.40 mg/dL Normal 0.20-1.20 [facility] Comment on above: Result Comment: Use of this assay is not recommended for patients undergoing treatment with eltrombopag due to the potential for falsely elevated results. Performed By: #### T SH, FT3, JUANCARLOS, LD, FT4, ADIFF, GFR, ANEU, CBC, CMP #### [place] [id number] BUN/Creatinine Ratio 16.8 ratio Normal 10.0-22.0 [facility] Comment on above: Performed By: #### T SH, FT3, JUANCARLOS, LD, FT4, ADIFF, GFR, ANEU, CBC, CMP #### [address] [address] Calcium [Mass/Vol] 9.3 mg/dL Normal 8.7-10.4 [facility] Comment on above: Performed By: #### T SH, FT3, JUANCARLOS, LD, FT4, ADIFF, GFR, ANEU, CBC, CMP #### [address] [address] Chloride [Moles/Vol] 104 mmol/L Normal 98-110 [facility] Comment on above: Performed By: #### T SH, FT3, JUANCARLOS, LD, FT4, ADIFF, GFR, ANEU, CBC, CMP #### [address] [address] CO2 [Moles/Vol] 29 mmol/L Normal 22-32 [facility] Comment on above: Performed By: #### T SH, FT3, JUANCARLOS, LD, FT4, ADIFF, GFR, ANEU, CBC, CMP #### [address] [address] Creatinine [Mass/Vol] 1.55 mg/dL High 0.60-1.40 [facility] Comment on above: Result Comment: Test ing performed on [employer] analyzer using enzymatic creatinine methodology. Performed By: #### T SH, FT3, JUANCARLOS, LD, FT4, ADIFF, GFR, ANEU, CBC, CMP #### [place] [id number] Electrolyte Balance 9.0 mEq/L Normal 4.0-15.0 [facility] Comment on above: Performed By: #### T SH, FT3, JUANCARLOS, LD, FT4, ADIFF, GFR, ANEU, CBC, CMP #### [place] [id number] Globulin 3.9 G/dL High 1.5-3.8 [facility] Comment on above: Performed By: #### T SH, FT3, JUANCARLOS, LD, FT4, ADIFF, GFR, ANEU, CBC, CMP #### [place] [id number] Glucose [Mass/Vol] 144 mg/dL High 70-110 [facility] Comment on above: Performed By: #### T SH, FT3, JUANCARLOS, LD, FT4, ADIFF, GFR, ANEU, CBC, CMP #### [place] [id number] Potassium [Moles/Vol] 3.6 mmol/L Normal 3.5-5.0 [facility] Comment on above: Performed By: #### T SH, FT3, JUANCARLOS, LD, FT4, ADIFF, GFR, ANEU, CBC, CMP #### [address] [address] Sodium [Moles/Vol] 142 mmol/L Normal 136-145 [facility] Comment on above: Performed By: #### T SH, FT3, JUANCARLOS, LD, FT4, ADIFF, GFR, ANEU, CBC, CMP #### [place] [id number] Total Protein 7.3 G/dL Normal 5.7-8.2 [facility] Comment on above: Performed By: #### T SH, FT3, JUANCARLOS, LD, FT4, ADIFF, GFR, ANEU, CBC, CMP #### [place] [address] Urea nitrogen [Mass/Vol] 26.0 mg/dL High 8.0-22.0 [facility] Comment on above: Performed By: #### T SH, FT3, JUANCARLOS, LD, FT4, ADIFF, GFR, ANEU, CBC, CMP #### [place] [address] CORTon 03-04-2024 Cortisol Level 17.4 mcg/dL Normal [facility] Comment on above: Result Comment: Juancarlos isol AM Reference Range 6.5-26.0 mcg/dL Cortisol PM Reference Range 3.5-15.0 mcg/dL Performed By: #### T SH, FT3, JUANCARLOS, LD, FT4, ADIFF, GFR, ANEU, CBC, CMP #### [place] [address] FT3on 03-04-2024 Free T3 [Mass/Vol] 3.21 pg/mL Normal 2.30-4.20 [facility] Comment on above: Performed By: #### T SH, FT3, JUANCARLOS, LD, FT4, ADIFF, GFR, ANEU, CBC, CMP #### [place] [address] FT4on 03-04-2024 Free T4 [Mass/Vol] 1.35 ng/dL Normal 0.89-1.76 [facility] Comment on above: Result Comment: No te - New Reference Range in effect 19 Performed By: #### T SH, FT3, JUANCARLOS, LD, FT4, ADIFF, GFR, ANEU, CBC, CMP #### [place] [address] LABORATORYOrdered By: SYSTEM SYSTEM on 03-04-2024 Albumin BCP dye [Mass/Vol] 3.4 G/dL Normal 3.2 - 4.8 G/dL ADM SS Albumin/Globulin [Mass ratio] 0.9 {ratio} Normal 0.9 - 1.6 ratio AH ADM SS ALP [Catalytic activity/Vol] 98 U/L Normal 38 - 126 U/L ADM SS ALT No additional P-5'-P [Catalytic activity/Vol] 17 U/L Normal 12 - 55 U/L ADM SS AST [Catalytic activity/Vol] 13 U/L Normal 8 - 34 U/L ADM SS Basophils (Bld) [#/Vol] 0.1 103/mcL Normal 0.0 - 0.3 10^3/mcL Workflow SS Basophils/100 WBC (Bld) 0.9 % Normal 0.0 - 2.5 % Workflow SS Bilirubin [Mass/Vol] 0.40 mg/dL Normal 0.20 - 1.20 mg/dL ADM SS Comment on above: Interpretive Data: U se of this assay is not recommended for patients undergoing treatment with eltrombopag due to the potential for falsely elevated results. Calcium [Mass/Vol] 9.3 mg/dL Normal 8.7 - 10. 4 mg/dL ADM SS Chloride [Moles/Vol] 104 mmol/L Normal 98 - 11 0 mEq/L ADM SS CO2 [Moles/Vol] 29 mmol/L Normal 22 - 32 mEq/L ADM SS Cortisol [Mass/Vol] 17.4 ug/dL Invalid Interpretation Code ADM SS Comment on above: Interpretive Data: C ortisol AM Reference Range 6.5-26.0 mcg/dL Cortisol PM Reference Range 3.5-15.0 mcg/dL Creatinine [Mass/Vol] 1.55 mg/dL High 0.60 - 1.40 mg/dL ADM SS Comment on above: Interpretive Data: T esting performed on [employer] analyzer using enzymatic creatinine methodology. Electrolyte Balance 9.0 mEq/L Normal 4.0 - 15 .0 mEq/L ADM SS Eosinophils (Bld) [#/Vol] 0.5 103/mcL Normal 0.0 - 0.7 10^3/mcL Workflow SS Eosinophils/100 WBC (Bld) 6.5 % High 0.0 - 6.0 % Workflow SS Erythrocyte distribution width (RBC) [Ratio] 14.7 % Normal 11.5 - 15.5 % Workflow SS Free T3 [Mass/Vol] 3.21 pg/mL Normal 2.30 - 4. 20 pg/mL ADM SS Free T4 [Mass/Vol] 1.35 ng/dL Normal 0.89 - 1. 76 ng/dL [facility] Comment on above: Interpretive Data: * *Note - New Reference Range in effect 19 GFR/1.73 sq M.predicted among blacks MDRD (S/P/Bld) [Vol rate/Area] 59 ml/min/1.73sqm Invalid Interpretation Code [facility] Comment on above: Interpretive Data: GFR Population mean for , Non- Americans Ages 20-29 = 116 mL/min/1.73 sq.m. Ages 30-39 = 107 mL/min/1.73 sq.m. Ages 40-49 = 99 mL/min/1.73 sq.m. Ages 50-59 = 93 mL/min/1.73 sq.m. Ages 60-69 = 85 mL/min/1.73 sq.m. Ages 70+ = 75 mL/min/1.73 sq.m. Chronic Kidney Disease: Less than 60 mL/min/1.73 square meters End Stage Renal Disease: Less than 15 mL/min/1.73 square meters GFR/1.73 sq M.predicted among non-blacks MDRD (S/P/Bld) [Vol rate/Area] 49 ml/min/1.73sqm Invalid Interpretation Code [facility] Comment on above: Interpretive Data: GFR Population mean for , Non- Americans Ages 20-29 = 116 mL/min/1.73 sq.m. Ages 30-39 = 107 mL/min/1.73 sq.m. Ages 40-49 = 99 mL/min/1.73 sq.m. Ages 50-59 = 93 mL/min/1.73 sq.m. Ages 60-69 = 85 mL/min/1.73 sq.m. Ages 70+ = 75 mL/min/1.73 sq.m. Chronic Kidney Disease: Less than 60 mL/min/1.73 square meters End Stage Renal Disease: Less than 15 mL/min/1.73 square meters Globulin 3.9 G/dL High 1.5 - 3.8 G/dL [facility] Glucose [Mass/Vol] 144 mg/dL High 70 - 110 mg/dL [facility] Hematocrit (Bld) [Volume fraction] 41.7 % Normal 40.0 - 52.0 % AH Workflow SS Hemoglobin (Bld) [Mass/Vol] 14.0 G/dL Normal 13.0 - 17.5 G/dL AH Workflow SS LDH Lactate to pyruvate reaction [Catalytic activity/Vol] 145 1 Normal 120 - 246 U/L ADM SS Lymphocytes (Bld) [#/Vol] 1.6 103/mcL Normal 0.9 - 4.3 10^3/mcL [facility] Workflow SS Lymphocytes/100 WBC (Bld) 20.8 % Normal 20.0 - 40.0 % AH Workflow SS MCH (RBC) [Entitic mass] 30.5 pg Normal 27.0 - 33.0 pg AH Workflow SS MCHC 33.5 G/dL Normal 32.0 - 36.0 G/dL AH Workflow SS MCV (RBC) [Entitic vol] 91.2 fL Normal 81.0 - 100.0 fL AH Workflow SS Monocytes (Bld) [#/Vol] 0.5 103/mcL Normal 0.1 - 1.4 10^3/mcL AH Workflow SS Monocytes/100 WBC (Bld) 5.9 % Normal 2.0 - 13.0 % AH Workflow SS Neutrophils (Bld) [#/Vol] 5.1 103/mcL Normal 2.3 - 8.1 10^3/mcL AH Workflow SS Neutrophils/100 WBC (Bld) 65.9 % Normal 50.0 - 75.0 % AH Workflow SS Platelet mean volume (Bld) [Entitic vol] 7.0 fL Normal 6.4 - 10.5 fL AH Workflow SS Platelets (Bld) [#/Vol] 147 103/mcL Low 150 - 450 10^3/mcL AH Workflow SS Potassium [Moles/Vol] 3.6 mmol/L Normal 3.5 - 5.0 mEq/L ADM SS Protein [Mass/Vol] 7.3 G/dL Normal 5.7 - 8.2 G/dL ADM SS RBC (Bld) [#/Vol] 4.58 106/mcL Normal 4.50 - 6.0 0 10^6/mcL AH Workflow SS Sodium [Moles/Vol] 142 mmol/L Normal 136 - 145 mEq/L ADM SS TSH Qn 1.424 mIU/mL Normal 0.550 - 4.780 mIU/mL ADM SS Urea nitrogen [Mass/Vol] 26.0 mg/dL High 8.0 - 22.0 mg/dL AH ADM SS Urea nitrogen/Creatinine [Mass ratio] 16.8 ratio Normal 10.0 - 22.0 ratio AH ADM SS WBC (Bld) [#/Vol] 7.8 103/mcL Normal 4.5 - 10.8 10^3/mcL AH Workflow SS LDHon 03-04-2024 LDH 145 U/L Normal 120-246 [facility] Comment on above: Performed By: #### T SH, FT3, JUANCARLOS, LD, FT4, ADIFF, GFR, ANEU, CBC, CMP #### [facility] [address] [place] [address] TSHon 03-04-2024 TSH 1.424 mIU/mL Normal 0.550-4.780 [facility] Comment on above: Performed By: #### T SH, FT3, JUANCARLOS, LD, FT4, ADIFF, GFR, ANEU, CBC, CMP #### [facility] [address] [place] [address] US SOFT TISSUE MASS OF RT AR M OR LEGon 03-02-2024 US SOFT TISSUE MASS OF RT ARM OR LEG ORIGINAL EXAMINATION: SOFT TISSUE ULTRASOUND OF THE RIGHT EXTREMITY03/01/2024 8:06 pm COMPARISON: None TECHNIQUE: Duplex ultrasound using B-mode/dey scaled imaging and Doppler spectral analysis and color flow was obtained of the right extremity. HISTORY: ORDERING SYSTEM PROVIDED HISTORY: Reason for Exam: suspect abscess; CT scan not approved by insurance, swelling and redness in the right upper medial thigh FINDINGS: Scanning of the soft tissues in the area of concern shows an elongated hypoechoic abnormality in the subcutaneous superficial space that is about 11.5 x 1.4 x 7.4 cm. There is no blood flow in this abnormality. The underlying subcutaneous soft tissues are unremarkable. The visualized musculature and soft tissues underlying this abnormality are unremarkable. IMPRESSION: Superficial subcutaneous hypoechoic abnormality is probably a complex fluid collection. Interpreted by: Paige Ray MD Preliminary Report By: Paige Ray MD Electronically signed By Paige Ray MD Dictated Date: 03/02/2024 10:27:05 AM Prelim Date: 03/02/2024 10:29:59 AM Sign Date: 03/02/2024 10:29:59 AM Ordering Provider: [facility] .Auto Diffon 12-23-2024 Basophil, Absolute 0.1 10 3/mcL Normal 0.0-0.3 [facility] Comment on above: Performed By: #### T SH, FT3, JUANCARLOS, LD, FT4, ADIFF, GFR, ANEU, CBC, CMP #### [address] [address] Basophils/100 WBC (Bld) 0.8 % Normal 0.0-2.5 [facility] Comment on above: Performed By: #### T SH, FT3, JUANCARLOS, LD, FT4, ADIFF, GFR, ANEU, CBC, CMP #### [address] [address] Eosinophil, Absolute 0.7 10 3/mcL Normal 0.0-0.7 [facility] Comment on above: Performed By: #### T SH, FT3, JUANCARLOS, LD, FT4, ADIFF, GFR, ANEU, CBC, CMP #### [address] [address] Eosinophils/100 WBC (Bld) 6.7 % High 0.0-6.0 [facility] Comment on above: Performed By: #### T SH, FT3, JUANCARLOS, LD, FT4, ADIFF, GFR, ANEU, CBC, CMP #### [address] [address] Lymphocyte, Absolute 1.8 10 3/mcL Normal 0.9-4.3 [facility] Comment on above: Performed By: #### T SH, FT3, JUANCARLOS, LD, FT4, ADIFF, GFR, ANEU, CBC, CMP #### [address] [address] Lymphocytes/100 WBC (Bld) 16.7 % Low 20.0-40.0 [facility] Comment on above: Performed By: #### T SH, FT3, JUANCARLOS, LD, FT4, ADIFF, GFR, ANEU, CBC, CMP #### [address] [address] Monocyte, Absolute 0.9 10 3/mcL Normal 0.1-1.4 [facility] Comment on above: Performed By: #### T SH, FT3, JUANCARLOS, LD, FT4, ADIFF, GFR, ANEU, CBC, CMP #### [address] [address] Monocytes/100 WBC (Bld) 8.2 % Normal 2.0-13.0 [facility] Comment on above: Performed By: #### T SH, FT3, JUANCARLOS, LD, FT4, ADIFF, GFR, ANEU, CBC, CMP #### [address] [address] Neutrophils/100 WBC (Bld) 67.6 % Normal 50.0-75.0 [facility] Comment on above: Performed By: #### T SH, FT3, JUANCARLOS, LD, FT4, ADIFF, GFR, ANEU, CBC, CMP #### [address] [address] .GFRon 02-05-2024 GFR Non- 40 ml/min/1.73sqm [facility] Comment on above: Result Comment: GFR Population mean for , Non- Americans Ages 20-29 = 116 mL/min/1.73 sq.m. Ages 30-39 = 107 mL/min/1.73 sq.m. Ages 40-49 = 99 mL/min/1.73 sq.m. Ages 50-59 = 93 mL/min/1.73 sq.m. Ages 60-69 = 85 mL/min/1.73 sq.m. Ages 70+ = 75 mL/min/1.73 sq.m. Chronic Kidney Disease: Less than 60 mL/min/1.73 square meters End Stage Renal Disease: Less than 15 mL/min/1.73 square meters Performed By: #### T SH, FT3, JUANCARLOS, LD, FT4, ADIFF, GFR, ANEU, CBC, CMP #### [address] [address] GFR 48 ml/min/1.73sqm [facility] Comment on above: Result Comment: GFR Population mean for , Non- Americans Ages 20-29 = 116 mL/min/1.73 sq.m. Ages 30-39 = 107 mL/min/1.73 sq.m. Ages 40-49 = 99 mL/min/1.73 sq.m. Ages 50-59 = 93 mL/min/1.73 sq.m. Ages 60-69 = 85 mL/min/1.73 sq.m. Ages 70+ = 75 mL/min/1.73 sq.m. Chronic Kidney Disease: Less than 60 mL/min/1.73 square meters End Stage Renal Disease: Less than 15 mL/min/1.73 square meters Performed By: #### T SH, FT3, JUANCARLOS, LD, FT4, ADIFF, GFR, ANEU, CBC, CMP #### [place] [id number] .NEUABSon 02-05-2024 Neutrophil, Absolute 7.3 10 3/mcL Normal 2.3-8.1 [facility] Comment on above: Performed By: #### T SH, FT3, JUANCARLOS, LD, FT4, ADIFF, GFR, ANEU, CBC, CMP #### [place] [address] CBCon 02-05-2024 Erythrocyte distribution width (RBC) [Ratio] 15.5 % Normal 11.5-15.5 [facility] Comment on above: Performed By: #### T SH, FT3, JUANCARLOS, LD, FT4, ADIFF, GFR, ANEU, CBC, CMP #### [place] [address] Hematocrit (Bld) [Volume fraction] 45.5 % Normal 40.0-52.0 [facility] Comment on above: Performed By: #### T SH, FT3, JUANCARLOS, LD, FT4, ADIFF, GFR, ANEU, CBC, CMP #### [place] [address] Hgb 15.3 G/dL Normal 13.0-17.5 [facility] Comment on above: Performed By: #### T SH, FT3, JUANCARLOS, LD, FT4, ADIFF, GFR, ANEU, CBC, CMP #### [place] [address] MCH (RBC) [Entitic mass] 31.3 pg Normal 27.0-33.0 [facility] Comment on above: Performed By: #### T SH, FT3, JUANCARLOS, LD, FT4, ADIFF, GFR, ANEU, CBC, CMP #### [address] [address] MCHC 33.7 G/dL Normal 32.0-36.0 [facility] Comment on above: Performed By: #### T SH, FT3, JUANCARLOS, LD, FT4, ADIFF, GFR, ANEU, CBC, CMP #### [place] [address] MCV (RBC) [Entitic vol] 93.0 fL Normal 81.0-100.0 [facility] Comment on above: Performed By: #### T SH, FT3, JUANCARLOS, LD, FT4, ADIFF, GFR, ANEU, CBC, CMP #### [place] [address] Platelet 308 10 3/mcL Normal 150-450 [facility] Comment on above: Performed By: #### T SH, FT3, JUANCARLOS, LD, FT4, ADIFF, GFR, ANEU, CBC, CMP #### [place] [address] Platelet mean volume (Bld) [Entitic vol] 7.1 fL Normal 6.4-10.5 [facility] Comment on above: Performed By: #### T SH, FT3, JUANCARLOS, LD, FT4, ADIFF, GFR, ANEU, CBC, CMP #### [place] [id number] RBC 4.89 10 6/mcL Normal 4.50-6.00 [facility] Comment on above: Performed By: #### T SH, FT3, JUANCARLOS, LD, FT4, ADIFF, GFR, ANEU, CBC, CMP #### [place] [id number] WBC 10.8 10 3/mcL Normal 4.5-10.8 [facility] Comment on above: Performed By: #### T SH, FT3, JUANCARLOS, LD, FT4, ADIFF, GFR, ANEU, CBC, CMP #### [address] [address] CMPon 02-05-2024 Albumin Level 3.6 G/dL Normal 3.2-4.8 [facility] Comment on above: Performed By: #### T SH, FT3, JUANCARLOS, LD, FT4, ADIFF, GFR, ANEU, CBC, CMP #### [place] [address] Albumin/Globulin [Mass ratio] 0.9 {ratio} Normal 0.9-1.6 [facility] Comment on above: Performed By: #### T SH, FT3, JUANCARLOS, LD, FT4, ADIFF, GFR, ANEU, CBC, CMP #### [place] [address] ALP [Catalytic activity/Vol] 102 U/L Normal 38-126 [facility] Comment on above: Performed By: #### T SH, FT3, JUANCARLOS, LD, FT4, ADIFF, GFR, ANEU, CBC, CMP #### [place] [address] ALT [Catalytic activity/Vol] 17 U/L Normal 12-55 [facility] Comment on above: Performed By: #### T SH, FT3, JUANCARLOS, LD, FT4, ADIFF, GFR, ANEU, CBC, CMP #### [place] [id number] AST [Catalytic activity/Vol] 19 U/L Normal 8-34 [facility] Comment on above: Performed By: #### T SH, FT3, JUANCARLOS, LD, FT4, ADIFF, GFR, ANEU, CBC, CMP #### [place] [id number] Bili Total 0.50 mg/dL Normal 0.20-1.20 [facility] Comment on above: Result Comment: Use of this assay is not recommended for patients undergoing treatment with eltrombopag due to the potential for falsely elevated results. Performed By: #### T SH, FT3, JUANCARLOS, LD, FT4, ADIFF, GFR, ANEU, CBC, CMP #### [place] [address] BUN/Creatinine Ratio 14.6 ratio Normal 10.0-22.0 [facility] Comment on above: Performed By: #### T SH, FT3, JUANCARLOS, LD, FT4, ADIFF, GFR, ANEU, CBC, CMP #### [address] [address] Calcium [Mass/Vol] 9.3 mg/dL Normal 8.7-10.4 [facility] Comment on above: Performed By: #### T SH, FT3, JUANCARLOS, LD, FT4, ADIFF, GFR, ANEU, CBC, CMP #### [address] [address] Chloride [Moles/Vol] 104 mmol/L Normal 98-110 [facility] Comment on above: Performed By: #### T SH, FT3, JUANCARLOS, LD, FT4, ADIFF, GFR, ANEU, CBC, CMP #### [address] [address] CO2 [Moles/Vol] 27 mmol/L Normal 22-32 [facility] Comment on above: Performed By: #### T SH, FT3, JUANCARLOS, LD, FT4, ADIFF, GFR, ANEU, CBC, CMP #### [address] [address] Creatinine [Mass/Vol] 1.85 mg/dL High 0.60-1.40 [facility] Comment on above: Result Comment: Test ing performed on [employer] analyzer using enzymatic creatinine methodology. Performed By: #### T SH, FT3, JUANCARLOS, LD, FT4, ADIFF, GFR, ANEU, CBC, CMP #### [address] [address] Electrolyte Balance 5.0 mEq/L Normal 4.0-15.0 [facility] Comment on above: Performed By: #### T SH, FT3, JUANCARLOS, LD, FT4, ADIFF, GFR, ANEU, CBC, CMP #### [address] [address] Globulin 4.0 G/dL High 1.5-3.8 [facility] Comment on above: Performed By: #### T SH, FT3, JUANCARLOS, LD, FT4, ADIFF, GFR, ANEU, CBC, CMP #### [address] [address] Glucose [Mass/Vol] 105 mg/dL Normal 70-110 [facility] Comment on above: Performed By: #### T SH, FT3, JUANCARLOS, LD, FT4, ADIFF, GFR, ANEU, CBC, CMP #### [place] [id number] Potassium [Moles/Vol] 3.7 mmol/L Normal 3.5-5.0 [facility] Comment on above: Performed By: #### T SH, FT3, JUANCARLOS, LD, FT4, ADIFF, GFR, ANEU, CBC, CMP #### [place] [id number] Sodium [Moles/Vol] 136 mmol/L Normal 136-145 [facility] Comment on above: Performed By: #### T SH, FT3, JUANCARLOS, LD, FT4, ADIFF, GFR, ANEU, CBC, CMP #### [place] [id number] Total Protein 7.6 G/dL Normal 5.7-8.2 [facility] Comment on above: Performed By: #### T SH, FT3, JUANCARLOS, LD, FT4, ADIFF, GFR, ANEU, CBC, CMP #### [place] [id number] Urea nitrogen [Mass/Vol] 27.0 mg/dL High 8.0-22.0 [facility] Comment on above: Performed By: #### T SH, FT3, JUANCARLOS, LD, FT4, ADIFF, GFR, ANEU, CBC, CMP #### [place] [id number] CORTon 02-05-2024 Cortisol Level 18.8 mcg/dL Normal [facility] Comment on above: Result Comment: Juancarlos isol AM Reference Range 6.5-26.0 mcg/dL Cortisol PM Reference Range 3.5-15.0 mcg/dL Performed By: #### T SH, FT3, JUANCARLOS, LD, FT4, ADIFF, GFR, ANEU, CBC, CMP #### [place] [address] FT3on 02-05-2024 Free T3 [Mass/Vol] 3.95 pg/mL Normal 2.30-4.20 [facility] Comment on above: Performed By: #### T SH, FT3, JUANCARLOS, LD, FT4, ADIFF, GFR, ANEU, CBC, CMP #### [place] [address] FT4on 02-05-2024 Free T4 [Mass/Vol] 1.24 ng/dL Normal 0.89-1.76 [facility] Comment on above: Result Comment: No te - New Reference Range in effect 19 Performed By: #### T SH, FT3, JUANCARLOS, LD, FT4, ADIFF, GFR, ANEU, CBC, CMP #### [place] [address] LABORATORYOrdered By: SYSTEM SYSTEM on 02-05-2024 Albumin BCP dye [Mass/Vol] 3.6 G/dL Normal 3.2 - 4.8 G/dL ADM SS Albumin/Globulin [Mass ratio] 0.9 {ratio} Normal 0.9 - 1.6 ratio ADM SS ALP [Catalytic activity/Vol] 102 U/L Normal 38 - 126 U/L ADM SS ALT No additional P-5'-P [Catalytic activity/Vol] 17 U/L Normal 12 - 55 U/L ADM SS AST [Catalytic activity/Vol] 19 U/L Normal 8 - 34 U/L ADM SS Basophils (Bld) [#/Vol] 0.1 103/mcL Normal 0.0 - 0.3 10^3/mcL Workflow SS Basophils/100 WBC (Bld) 0.8 % Normal 0.0 - 2.5 % Workflow SS Bilirubin [Mass/Vol] 0.50 mg/dL Normal 0.20 - 1.20 mg/dL ADM SS Comment on above: Interpretive Data: U se of this assay is not recommended for patients undergoing treatment with eltrombopag due to the potential for falsely elevated results. Calcium [Mass/Vol] 9.3 mg/dL Normal 8.7 - 10. 4 mg/dL ADM SS Chloride [Moles/Vol] 104 mmol/L Normal 98 - 11 0 mEq/L AH ADM SS CO2 [Moles/Vol] 27 mmol/L Normal 22 - 32 mEq/L ADM SS Cortisol [Mass/Vol] 18.8 ug/dL Invalid Interpretation Code AH ADM SS Comment on above: Interpretive Data: C ortisol AM Reference Range 6.5-26.0 mcg/dL Cortisol PM Reference Range 3.5-15.0 mcg/dL Creatinine [Mass/Vol] 1.85 mg/dL High 0.60 - 1.40 mg/dL ADM SS Comment on above: Interpretive Data: T esting performed on [employer] analyzer using enzymatic creatinine methodology. Electrolyte Balance 5.0 mEq/L Normal 4.0 - 15 .0 mEq/L ADM SS Eosinophils (Bld) [#/Vol] 0.7 103/mcL Normal 0.0 - 0.7 10^3/mcL Workflow SS Eosinophils/100 WBC (Bld) 6.7 % High 0.0 - 6.0 % Workflow SS Erythrocyte distribution width (RBC) [Ratio] 15.5 % Normal 11.5 - 15.5 % Workflow SS Free T3 [Mass/Vol] 3.95 pg/mL Normal 2.30 - 4. 20 pg/mL ADM SS Free T4 [Mass/Vol] 1.24 ng/dL Normal 0.89 - 1. 76 ng/dL ADM SS Comment on above: Interpretive Data: * *Note - New Reference Range in effect 19 GFR/1.73 sq M.predicted among blacks MDRD (S/P/Bld) [Vol rate/Area] 48 ml/min/1.73sqm Invalid Interpretation Code ADM SS Comment on above: Interpretive Data: GFR Population mean for , Non- Americans Ages 20-29 = 116 mL/min/1.73 sq.m. Ages 30-39 = 107 mL/min/1.73 sq.m. Ages 40-49 = 99 mL/min/1.73 sq.m. Ages 50-59 = 93 mL/min/1.73 sq.m. Ages 60-69 = 85 mL/min/1.73 sq.m. Ages 70+ = 75 mL/min/1.73 sq.m. Chronic Kidney Disease: Less than 60 mL/min/1.73 square meters End Stage Renal Disease: Less than 15 mL/min/1.73 square meters GFR/1.73 sq M.predicted among non-blacks MDRD (S/P/Bld) [Vol rate/Area] 40 ml/min/1.73sqm Invalid Interpretation Code ADM SS Comment on above: Interpretive Data: GFR Population mean for , Non- Americans Ages 20-29 = 116 mL/min/1.73 sq.m. Ages 30-39 = 107 mL/min/1.73 sq.m. Ages 40-49 = 99 mL/min/1.73 sq.m. Ages 50-59 = 93 mL/min/1.73 sq.m. Ages 60-69 = 85 mL/min/1.73 sq.m. Ages 70+ = 75 mL/min/1.73 sq.m. Chronic Kidney Disease: Less than 60 mL/min/1.73 square meters End Stage Renal Disease: Less than 15 mL/min/1.73 square meters Globulin 4.0 G/dL High 1.5 - 3.8 G/dL ADM SS Glucose [Mass/Vol] 105 mg/dL Normal 70 - 110 mg/dL ADM SS Hematocrit (Bld) [Volume fraction] 45.5 % Normal 40.0 - 52.0 % Workflow SS Hemoglobin (Bld) [Mass/Vol] 15.3 G/dL Normal 13.0 - 17.5 G/dL Workflow SS LDH Lactate to pyruvate reaction [Catalytic activity/Vol] 180 1 Normal 120 - 246 U/L ADM SS Lymphocytes (Bld) [#/Vol] 1.8 103/mcL Normal 0.9 - 4.3 10^3/mcL Workflow SS Lymphocytes/100 WBC (Bld) 16.7 % Low 20.0 - 40.0 % Workflow SS MCH (RBC) [Entitic mass] 31.3 pg Normal 27.0 - 33.0 pg Workflow SS MCHC 33.7 G/dL Normal 32.0 - 36.0 G/dL Workflow SS MCV (RBC) [Entitic vol] 93.0 fL Normal 81.0 - 100.0 fL Workflow SS Monocytes (Bld) [#/Vol] 0.9 103/mcL Normal 0.1 - 1.4 10^3/mcL AH Workflow SS Monocytes/100 WBC (Bld) 8.2 % Normal 2.0 - 13.0 % AH Workflow SS Neutrophils (Bld) [#/Vol] 7.3 103/mcL Normal 2.3 - 8.1 10^3/mcL AH Workflow SS Neutrophils/100 WBC (Bld) 67.6 % Normal 50.0 - 75.0 % AH Workflow SS Platelet mean volume (Bld) [Entitic vol] 7.1 fL Normal 6.4 - 10.5 fL AH Workflow SS Platelets (Bld) [#/Vol] 308 103/mcL Normal 150 - 450 10^3/mcL AH Workflow SS Potassium [Moles/Vol] 3.7 mmol/L Normal 3.5 - 5.0 mEq/L AH ADM SS Protein [Mass/Vol] 7.6 G/dL Normal 5.7 - 8.2 G/dL ADM SS RBC (Bld) [#/Vol] 4.89 106/mcL Normal 4.50 - 6.0 0 10^6/mcL AH Workflow SS Sodium [Moles/Vol] 136 mmol/L Normal 136 - 145 mEq/L ADM SS TSH Qn 2.225 mIU/mL Normal 0.550 - 4.780 mIU/mL ADM SS Urea nitrogen [Mass/Vol] 27.0 mg/dL High 8.0 - 22.0 mg/dL ADM SS Urea nitrogen/Creatinine [Mass ratio] 14.6 ratio Normal 10.0 - 22.0 ratio ADM SS WBC (Bld) [#/Vol] 10.8 103/mcL Normal 4.5 - 10.8 10^3/mcL Workflow SS LDHon 02-05-2024 LDH 180 U/L Normal 120-246 [facility] Comment on above: Performed By: #### T SH, FT3, JUANCARLOS, LD, FT4, ADIFF, GFR, ANEU, CBC, CMP #### [address] [address] TSHon 02-05-2024 TSH 2.225 mIU/mL Normal 0.550-4.780 [facility] Comment on above: Performed By: #### T SH, FT3, JUANCARLOS, LD, FT4, ADIFF, GFR, ANEU, CBC, CMP #### [facility] [address] [place] [address] LEVOFLOXACIN:SUSC:PT:ISOLATE :ORDQN:MICon 01-31-2024 levoFLOXacin KEN [Susc] Few Enterococcus faecalis Heavy normal skin monie present. Sensitivity testing not indicated. [facility] levoFLOXacin KEN [Susc]on Enterococcus faecalis Enterococcus faecalis [facility] GS 1+ Polymorphonuclear cells Rare Gram Positive Rods [facility] CT THORAX W/O CONTRASTon CT THORAX W/O CONTRAST ORIGINAL EXAMINATION: CT OF THE CHEST WITHOUT CONTRAST 01/19/2024 11:22 am TECHNIQUE: CT of the chest was performed without the administration of intravenous contrast. Multiplanar reformatted images are provided for review. Automated exposure control, iterative reconstruction, and/or weight based adjustment of the mA/kV was utilized to reduce the radiation dose to as low as reasonably achievable. COMPARISON: 10/12/2023. HISTORY: ORDERING SYSTEM PROVIDED HISTORY: Reason for Exam: hx RCC FINDINGS: Note: RECIST 1.1 is not applicable, as disease is not "evaluable" without IV contrast. Evaluation of the upper abdomen is dictated separately. Partially imaged left posterolateral flank hernia containing bowel. There is no axillary lymphadenopathy. Interval reduction of numerous mediastinal lymph nodes none of which appear pathologically enlarged per CT criteria. Hilar regions are poorly assessed secondary to lack of IV contrast. Heart is normal in size without pericardial effusion. Right-sided chest port is noted. Sternotomy wires and mediastinal clips. Coronary artery atherosclerotic calcifications. Abandoned epicardial pacing wires. The trachea and mainstem bronchi are patent. Scattered areas of pleuroparenchymal scarring. No pleural effusion or pneumothorax. No new suspicious pulmonary nodule is identified. Stable T11 pathologic fracture. Gynecomastia. Multilevel degenerative changes. Slightly enlarged 1.3 cm cystic lesion centered at the anterior right costochondral articulation (2:24) is favored degenerative although attention on follow-up is recommended. IMPRESSION: Stable exam including pathologic T11 fracture. No new areas of disease. I have personally reviewed the images of this examination and agree with the resident's findings and interpretations. Interpreted by: Rachell Dennis MD Preliminary Report By: Erich Unger Electronically signed By Rachell Dennis MD Dictated Date: 01/22/2024 2:14:42 PM Prelim Date: 01/22/2024 4:37:16 PM Sign Date: 01/22/2024 4:37:16 PM Ordering Provider: [facility] CT ABDOMEN/PELVIS W/O CONTRA STon 01-19-2024 CT ABDOMEN/PELVIS W/O CONTRAST ORIGINAL EXAMINATION: CT OF THE ABDOMEN AND PELVIS WITHOUT CONTRAST 01/19/2024 11:22 am TECHNIQUE: CT of the abdomen and pelvis was performed without the administration of intravenous contrast. Multiplanar reformatted images are provided for review. Automated exposure control, iterative reconstruction, and/or weight based adjustment of the mA/kV was utilized to reduce the radiation dose to as low as reasonably achievable. COMPARISON: CT abdomen and pelvis October 12, 2023 HISTORY: ORDERING SYSTEM PROVIDED HISTORY: Reason for Exam: hx RCC FINDINGS: Note: Recist 1.1 is not applicable as disease is not "evaluable" without IV contrast. Same day CT chest is reported separately. Pathologic fracture of the T11 vertebral body is relatively unchanged. Other degenerative changes of the spine are noted. No acute osseous process. Stable small hepatic cysts. The spleen, pancreas, and adrenal glands are unremarkable. Status post left nephrectomy. There is no abnormal soft tissue at the resection bed. The right kidney is unremarkable. There is no intra-abdominal free air or fluid. There are no pathologically enlarged lymph nodes. The urinary bladder is decompressed limiting evaluation. There is a posterolateral left flank hernia which contains descending colon. No acute GI tract abnormality. No other contributory finding. IMPRESSION: No evidence for recurrent or new disease. I have personally reviewed the images of this examination and agree with the resident's findings and interpretation. Interpreted by: Rachell Dennis MD Preliminary Report By: Tanner Merrill Electronically signed By Rachell Dennis MD Dictated Date: 01/19/2024 11:45:41 AM Prelim Date: 01/19/2024 4:19:39 PM Sign Date: 01/19/2024 4:19:39 PM Ordering Provider: [facility] .Auto Diffon 12-21-2023 Basophil, Absolute 0.1 10 3/mcL Normal 0.0-0.3 [facility] Comment on above: Performed By: #### T SH, FT3, JUANCARLOS, LD, FT4, ADIFF, GFR, ANEU, CBC, CMP #### [address] [address] Basophils/100 WBC (Bld) 0.8 % Normal 0.0-2.5 [facility] Comment on above: Performed By: #### T SH, FT3, JUANCARLOS, LD, FT4, ADIFF, GFR, ANEU, CBC, CMP #### [address] [address] Eosinophil, Absolute 0.7 10 3/mcL Normal 0.0-0.7 [facility] Comment on above: Performed By: #### T SH, FT3, JUANCARLOS, LD, FT4, ADIFF, GFR, ANEU, CBC, CMP #### [address] [address] Eosinophils/100 WBC (Bld) 5.4 % Normal 0.0-6.0 [facility] Comment on above: Performed By: #### T SH, FT3, JUANCARLOS, LD, FT4, ADIFF, GFR, ANEU, CBC, CMP #### [address] [address] Lymphocyte, Absolute 1.4 10 3/mcL Normal 0.9-4.3 [facility] Comment on above: Performed By: #### T SH, FT3, JUANCARLOS, LD, FT4, ADIFF, GFR, ANEU, CBC, CMP #### [address] [address] Lymphocytes/100 WBC (Bld) 11.0 % Low 20.0-40.0 [facility] Comment on above: Performed By: #### T SH, FT3, JUANCARLOS, LD, FT4, ADIFF, GFR, ANEU, CBC, CMP #### [address] [address] Monocyte, Absolute 1.1 10 3/mcL Normal 0.1-1.4 [facility] Comment on above: Performed By: #### T SH, FT3, JUANCARLOS, LD, FT4, ADIFF, GFR, ANEU, CBC, CMP #### [address] [address] Monocytes/100 WBC (Bld) 8.6 % Normal 2.0-13.0 [facility] Comment on above: Performed By: #### T SH, FT3, JUANCARLOS, LD, FT4, ADIFF, GFR, ANEU, CBC, CMP #### [address] [address] Neutrophils/100 WBC (Bld) 74.2 % Normal 50.0-75.0 [facility] Comment on above: Performed By: #### T SH, FT3, JUANCARLOS, LD, FT4, ADIFF, GFR, ANEU, CBC, CMP #### [address] [address] .GFRon 12-21-2023 GFR Non- 49 ml/min/1.73sqm [facility] MAIN Comment on above: Result Comment: GFR Population mean for , Non- Americans Ages 20-29 = 116 mL/min/1.73 sq.m. Ages 30-39 = 107 mL/min/1.73 sq.m. Ages 40-49 = 99 mL/min/1.73 sq.m. Ages 50-59 = 93 mL/min/1.73 sq.m. Ages 60-69 = 85 mL/min/1.73 sq.m. Ages 70+ = 75 mL/min/1.73 sq.m. Chronic Kidney Disease: Less than 60 mL/min/1.73 square meters End Stage Renal Disease: Less than 15 mL/min/1.73 square meters Performed By: #### T SH, FT3, JUANCARLOS, LD, FT4, ADIFF, GFR, ANEU, CBC, CMP #### [address] [address] GFR 60 ml/min/1.73sqm [facility] MAIN Comment on above: Result Comment: GFR Population mean for , Non- Americans Ages 20-29 = 116 mL/min/1.73 sq.m. Ages 30-39 = 107 mL/min/1.73 sq.m. Ages 40-49 = 99 mL/min/1.73 sq.m. Ages 50-59 = 93 mL/min/1.73 sq.m. Ages 60-69 = 85 mL/min/1.73 sq.m. Ages 70+ = 75 mL/min/1.73 sq.m. Chronic Kidney Disease: Less than 60 mL/min/1.73 square meters End Stage Renal Disease: Less than 15 mL/min/1.73 square meters Performed By: #### T SH, FT3, JUANCARLOS, LD, FT4, ADIFF, GFR, ANEU, CBC, CMP #### [address] [address] .NEUABSon 12-21-2023 Neutrophil, Absolute 9.3 10 3/mcL High 2.3-8.1 [facility] MAIN Comment on above: Performed By: #### T SH, FT3, JUANCARLOS, LD, FT4, ADIFF, GFR, ANEU, CBC, CMP #### [place] [address] CBCon 12-21-2023 Erythrocyte distribution width (RBC) [Ratio] 16.5 % High 11.5-15.5 [facility] Comment on above: Performed By: #### T SH, FT3, JUANCARLOS, LD, FT4, ADIFF, GFR, ANEU, CBC, CMP #### [place] [address] Hematocrit (Bld) [Volume fraction] 44.8 % Normal 40.0-52.0 [facility] Comment on above: Performed By: #### T SH, FT3, JUANCARLOS, LD, FT4, ADIFF, GFR, ANEU, CBC, CMP #### [place] [address] Hgb 15.3 G/dL Normal 13.0-17.5 [facility] Comment on above: Performed By: #### T SH, FT3, JUANCARLOS, LD, FT4, ADIFF, GFR, ANEU, CBC, CMP #### [place] [address] MCH (RBC) [Entitic mass] 31.7 pg Normal 27.0-33.0 [facility] Comment on above: Performed By: #### T SH, FT3, JUANCARLOS, LD, FT4, ADIFF, GFR, ANEU, CBC, CMP #### [place] [address] MCHC 34.1 G/dL Normal 32.0-36.0 [facility] Comment on above: Performed By: #### T SH, FT3, JUANCARLOS, LD, FT4, ADIFF, GFR, ANEU, CBC, CMP #### [place] [address] MCV (RBC) [Entitic vol] 93.0 fL Normal 81.0-100.0 [facility] Comment on above: Performed By: #### T SH, FT3, JUANCARLOS, LD, FT4, ADIFF, GFR, ANEU, CBC, CMP #### [place] [address] Platelet 248 10 3/mcL Normal 150-450 [facility] Comment on above: Performed By: #### T SH, FT3, JUANCARLOS, LD, FT4, ADIFF, GFR, ANEU, CBC, CMP #### [place] [address] Platelet mean volume (Bld) [Entitic vol] 7.6 fL Normal 6.4-10.5 [facility] Comment on above: Performed By: #### T SH, FT3, JUANCARLOS, LD, FT4, ADIFF, GFR, ANEU, CBC, CMP #### [place] [address] RBC 4.82 10 6/mcL Normal 4.50-6.00 [facility] Comment on above: Performed By: #### T SH, FT3, JUANCARLOS, LD, FT4, ADIFF, GFR, ANEU, CBC, CMP #### [place] [address] WBC 12.5 10 3/mcL High 4.5-10.8 [facility] Comment on above: Performed By: #### T SH, FT3, JUANCARLOS, LD, FT4, ADIFF, GFR, ANEU, CBC, CMP #### [place] [address] CMPon 12-21-2023 Albumin Level 3.4 G/dL Normal 3.2-4.8 [facility] Comment on above: Performed By: #### T SH, FT3, JUANCARLOS, LD, FT4, ADIFF, GFR, ANEU, CBC, CMP #### [place] [address] Albumin/Globulin [Mass ratio] 0.8 {ratio} Low 0.9-1.6 [facility] Comment on above: Performed By: #### T SH, FT3, JUANCARLOS, LD, FT4, ADIFF, GFR, ANEU, CBC, CMP #### [place] [address] ALP [Catalytic activity/Vol] 106 U/L Normal 38-126 [facility] Comment on above: Performed By: #### T SH, FT3, JUANCARLOS, LD, FT4, ADIFF, GFR, ANEU, CBC, CMP #### [place] [address] ALT [Catalytic activity/Vol] 9 U/L Low 12-55 [facility] Comment on above: Performed By: #### T SH, FT3, JUANCARLOS, LD, FT4, ADIFF, GFR, ANEU, CBC, CMP #### [place] [id number] AST [Catalytic activity/Vol] 11 U/L Normal 8-34 [facility] Comment on above: Performed By: #### T SH, FT3, JUANCARLOS, LD, FT4, ADIFF, GFR, ANEU, CBC, CMP #### [place] [address] Bili Total 0.80 mg/dL Normal 0.20-1.20 [facility] Comment on above: Result Comment: Use of this assay is not recommended for patients undergoing treatment with eltrombopag due to the potential for falsely elevated results. Performed By: #### T SH, FT3, JUANCARLOS, LD, FT4, ADIFF, GFR, ANEU, CBC, CMP #### [place] [address] BUN/Creatinine Ratio 15.6 ratio Normal 10.0-22.0 [facility]IN Comment on above: Performed By: #### T SH, FT3, JUANCARLOS, LD, FT4, ADIFF, GFR, ANEU, CBC, CMP #### [place] [id number] Calcium [Mass/Vol] 9.9 mg/dL Normal 8.7-10.4 [facility] MAIN Comment on above: Performed By: #### T SH, FT3, JUANCARLOS, LD, FT4, ADIFF, GFR, ANEU, CBC, CMP #### [place] [id number] Chloride [Moles/Vol] 104 mmol/L Normal 98-110 [facility] MAIN Comment on above: Performed By: #### T SH, FT3, JUANCARLOS, LD, FT4, ADIFF, GFR, ANEU, CBC, CMP #### [place] [id number] CO2 [Moles/Vol] 31 mmol/L Normal 22-32 [facility] Comment on above: Performed By: #### T SH, FT3, JUANCARLOS, LD, FT4, ADIFF, GFR, ANEU, CBC, CMP #### [place] [address] Creatinine [Mass/Vol] 1.54 mg/dL High 0.60-1.40 [facility] MAIN Comment on above: Result Comment: Test ing performed on [employer] analyzer using enzymatic creatinine methodology. Performed By: #### T SH, FT3, JUANCARLOS, LD, FT4, ADIFF, GFR, ANEU, CBC, CMP #### [place] [address] Electrolyte Balance 6.0 mEq/L Normal 4.0-15.0 [facility] MAIN Comment on above: Performed By: #### T SH, FT3, JUANCARLOS, LD, FT4, ADIFF, GFR, ANEU, CBC, CMP #### [place] [id number] Globulin 4.2 G/dL High 1.5-3.8 [facility] Comment on above: Performed By: #### T SH, FT3, JUANCARLOS, LD, FT4, ADIFF, GFR, ANEU, CBC, CMP #### [address] [address] Glucose [Mass/Vol] 118 mg/dL High 70-110 [facility] MAIN Comment on above: Performed By: #### T SH, FT3, JUANCARLOS, LD, FT4, ADIFF, GFR, ANEU, CBC, CMP #### [address] [address] Potassium [Moles/Vol] 3.7 mmol/L Normal 3.5-5.0 [facility] MAIN Comment on above: Performed By: #### T SH, FT3, JUANCARLOS, LD, FT4, ADIFF, GFR, ANEU, CBC, CMP #### [place] [id number] Sodium [Moles/Vol] 141 mmol/L Normal 136-145 [facility] Comment on above: Performed By: #### T SH, FT3, JUANCARLOS, LD, FT4, ADIFF, GFR, ANEU, CBC, CMP #### [place] [id number] Total Protein 7.6 G/dL Normal 5.7-8.2 [facility] Comment on above: Performed By: #### T SH, FT3, JUANCARLOS, LD, FT4, ADIFF, GFR, ANEU, CBC, CMP #### [place] [id number] Urea nitrogen [Mass/Vol] 24.0 mg/dL High 8.0-22.0 [facility] Comment on above: Performed By: #### T SH, FT3, JUANCARLOS, LD, FT4, ADIFF, GFR, ANEU, CBC, CMP #### [address] [address] CORTon 12-21-2023 Cortisol Level 27.9 mcg/dL Normal [facility] Comment on above: Result Comment: Juancarlos isol AM Reference Range 6.5-26.0 mcg/dL Cortisol PM Reference Range 3.5-15.0 mcg/dL Performed By: #### T SH, FT3, JUANCARLOS, LD, FT4, ADIFF, GFR, ANEU, CBC, CMP #### [address] [address] FT3on 12-21-2023 Free T3 [Mass/Vol] 3.25 pg/mL Normal 2.30-4.20 [facility] MAIN Comment on above: Performed By: #### T SH, FT3, JUANCARLOS, LD, FT4, ADIFF, GFR, ANEU, CBC, CMP #### [address] [address] FT4on 12-21-2023 Free T4 [Mass/Vol] 1.34 ng/dL Normal 0.89-1.76 [facility] MAIN Comment on above: Result Comment: No te - New Reference Range in effect 19 Performed By: #### T SH, FT3, JUANCARLOS, LD, FT4, ADIFF, GFR, ANEU, CBC, CMP #### [address] [address] LABORATORYOrdered By: SYSTEM SYSTEM on 12-21-2023 Albumin BCP dye [Mass/Vol] 3.4 G/dL Normal 3.2 - 4.8 G/dL ADM SS Albumin/Globulin [Mass ratio] 0.8 {ratio} Low 0.9 - 1.6 ratio ADM SS ALP [Catalytic activity/Vol] 106 U/L Normal 38 - 126 U/L ADM SS ALT No additional P-5'-P [Catalytic activity/Vol] 9 U/L Low 12 - 55 U/L ADM SS AST [Catalytic activity/Vol] 11 U/L Normal 8 - 34 U/L ADM SS Basophils (Bld) [#/Vol] 0.1 103/mcL Normal 0.0 - 0.3 10^3/mcL Workflow SS Basophils/100 WBC (Bld) 0.8 % Normal 0.0 - 2.5 % Workflow SS Bilirubin [Mass/Vol] 0.80 mg/dL Normal 0.20 - 1.20 mg/dL ADM SS Comment on above: Interpretive Data: U se of this assay is not recommended for patients undergoing treatment with eltrombopag due to the potential for falsely elevated results. Calcium [Mass/Vol] 9.9 mg/dL Normal 8.7 - 10. 4 mg/dL ADM SS Chloride [Moles/Vol] 104 mmol/L Normal 98 - 11 0 mEq/L AH ADM SS CO2 [Moles/Vol] 31 mmol/L Normal 22 - 32 mEq/L ADM SS Cortisol [Mass/Vol] 27.9 ug/dL Invalid Interpretation Code ADM SS Comment on above: Interpretive Data: C ortisol AM Reference Range 6.5-26.0 mcg/dL Cortisol PM Reference Range 3.5-15.0 mcg/dL Creatinine [Mass/Vol] 1.54 mg/dL High 0.60 - 1.40 mg/dL ADM SS Comment on above: Interpretive Data: T esting performed on [employer] analyzer using enzymatic creatinine methodology. Electrolyte Balance 6.0 mEq/L Normal 4.0 - 15 .0 mEq/L ADM SS Eosinophils (Bld) [#/Vol] 0.7 103/mcL Normal 0.0 - 0.7 10^3/mcL Workflow SS Eosinophils/100 WBC (Bld) 5.4 % Normal 0.0 - 6.0 % Workflow SS Erythrocyte distribution width (RBC) [Ratio] 16.5 % High 11.5 - 15.5 % Workflow SS Free T3 [Mass/Vol] 3.25 pg/mL Normal 2.30 - 4. 20 pg/mL ADM SS Free T4 [Mass/Vol] 1.34 ng/dL Normal 0.89 - 1. 76 ng/dL ADM SS Comment on above: Interpretive Data: * *Note - New Reference Range in effect 19 GFR/1.73 sq M.predicted among blacks MDRD (S/P/Bld) [Vol rate/Area] 60 ml/min/1.73sqm Invalid Interpretation Code ADM SS Comment on above: Interpretive Data: GFR Population mean for , Non- Americans Ages 20-29 = 116 mL/min/1.73 sq.m. Ages 30-39 = 107 mL/min/1.73 sq.m. Ages 40-49 = 99 mL/min/1.73 sq.m. Ages 50-59 = 93 mL/min/1.73 sq.m. Ages 60-69 = 85 mL/min/1.73 sq.m. Ages 70+ = 75 mL/min/1.73 sq.m. Chronic Kidney Disease: Less than 60 mL/min/1.73 square meters End Stage Renal Disease: Less than 15 mL/min/1.73 square meters GFR/1.73 sq M.predicted among non-blacks MDRD (S/P/Bld) [Vol rate/Area] 49 ml/min/1.73sqm Invalid Interpretation Code ADM SS Comment on above: Interpretive Data: GFR Population mean for , Non- Americans Ages 20-29 = 116 mL/min/1.73 sq.m. Ages 30-39 = 107 mL/min/1.73 sq.m. Ages 40-49 = 99 mL/min/1.73 sq.m. Ages 50-59 = 93 mL/min/1.73 sq.m. Ages 60-69 = 85 mL/min/1.73 sq.m. Ages 70+ = 75 mL/min/1.73 sq.m. Chronic Kidney Disease: Less than 60 mL/min/1.73 square meters End Stage Renal Disease: Less than 15 mL/min/1.73 square meters Globulin 4.2 G/dL High 1.5 - 3.8 G/dL ADM SS Glucose [Mass/Vol] 118 mg/dL High 70 - 110 mg/dL ADM SS Hematocrit (Bld) [Volume fraction] 44.8 % Normal 40.0 - 52.0 % Workflow SS Hemoglobin (Bld) [Mass/Vol] 15.3 G/dL Normal 13.0 - 17.5 G/dL Workflow SS LDH Lactate to pyruvate reaction [Catalytic activity/Vol] 143 1 Normal 120 - 246 U/L ADM SS Lymphocytes (Bld) [#/Vol] 1.4 103/mcL Normal 0.9 - 4.3 10^3/mcL Workflow SS Lymphocytes/100 WBC (Bld) 11.0 % Low 20.0 - 40.0 % Workflow SS MCH (RBC) [Entitic mass] 31.7 pg Normal 27.0 - 33.0 pg Workflow SS MCHC 34.1 G/dL Normal 32.0 - 36.0 G/dL Workflow SS MCV (RBC) [Entitic vol] 93.0 fL Normal 81.0 - 100.0 fL Workflow SS Monocytes (Bld) [#/Vol] 1.1 103/mcL Normal 0.1 - 1.4 10^3/mcL Workflow SS Monocytes/100 WBC (Bld) 8.6 % Normal 2.0 - 13.0 % AH Workflow SS Neutrophils (Bld) [#/Vol] 9.3 103/mcL High 2.3 - 8.1 10^3/mcL AH Workflow SS Neutrophils/100 WBC (Bld) 74.2 % Normal 50.0 - 75.0 % AH Workflow SS Platelet mean volume (Bld) [Entitic vol] 7.6 fL Normal 6.4 - 10.5 fL Workflow SS Platelets (Bld) [#/Vol] 248 103/mcL Normal 150 - 450 10^3/mcL AH Workflow SS Potassium [Moles/Vol] 3.7 mmol/L Normal 3.5 - 5.0 mEq/L ADM SS Protein [Mass/Vol] 7.6 G/dL Normal 5.7 - 8.2 G/dL ADM SS RBC (Bld) [#/Vol] 4.82 106/mcL Normal 4.50 - 6.0 0 10^6/mcL AH Workflow SS Sodium [Moles/Vol] 141 mmol/L Normal 136 - 145 mEq/L ADM SS TSH Qn 2.088 mIU/mL Normal 0.550 - 4.780 mIU/mL ADM SS Urea nitrogen [Mass/Vol] 24.0 mg/dL High 8.0 - 22.0 mg/dL ADM SS Urea nitrogen/Creatinine [Mass ratio] 15.6 ratio Normal 10.0 - 22.0 ratio ADM SS WBC (Bld) [#/Vol] 12.5 103/mcL High 4.5 - 10.8 10^3/mcL Workflow SS LDHon 12-21-2023 LDH 143 U/L Normal 120-246 [facility] Comment on above: Performed By: #### T SH, FT3, JUANCARLOS, LD, FT4, ADIFF, GFR, ANEU, CBC, CMP #### [address] [address] TSHon 12-21-2023 TSH 2.088 mIU/mL Normal 0.550-4.780 [facility] Comment on above: Performed By: #### T SH, FT3, JUANCARLOS, LD, FT4, ADIFF, GFR, ANEU, CBC, CMP #### [address] [address] LABORATORYOrdered By: Thee Black on 11-30-2023 Cholesterol [Mass/Vol] 169 mg/dL Normal 0 - 2 00 mg/dL AO ADM SS Comment on above: Interpretive Data: C holesterol Reference Interval: Less than 200 Desirable 200-239 Borderline high risk 240 and above High risk Cholesterol in HDL [Mass/Vol] 38 mg/dL Low 40 - 60 mg/dL AO ADM SS Cholesterol in LDL [Mass/Vol] 101 mg/dL Normal 0 - 130 mg/dL AO ADM SS Triglyceride [Mass/Vol] 150 mg/dL Normal 0 - 150 mg/dL AO ADM SS Comment on above: Interpretive Data: T riglyceride Reference Interval: Less than 150 Normal 150-199 Borderline high risk 200-499 High risk 500 or higher Very high risk LABORATORYOrdered By: SYSTEM SYSTEM on 11-30-2023 Glucose [Mass/Vol] 98 mg/dL Normal 70 - 105 mg/dL AO ADM SS CNPNon 11-16-2023 CNPN Telephone ([id number]) LYNDSAY LOPEZ ([id number]) 1980 M Date Time Provider Department 11/16/23 SHYANNE DOCKERY [id number] During your visit today, we recorded the following information about you: Shyanne Dockery 11/16/2023 11:19 AM Signed Referring: Images on the way Referring Provider: NOAH SEPULVEDA [[id number]] Allergies As of Date: 11/16/2023 (Not on File) Date Reviewed: Never Reviewed Reason for Visit: New CTEPH Referral [Other] Problem List As Of Date: 11/16/2023 (None) Encounter Status:Closed by SHYANNE DOCKERY on 11/22/23 Normal [facility] LABORATORYOrdered By: SYSTEM SYSTEM on 11-16-2023 Albumin BCP dye [Mass/Vol] 3.9 G/dL Normal 3.2 - 4.8 G/dL AH ADM SS Albumin/Globulin [Mass ratio] 1.0 {ratio} Normal 0.9 - 1.6 ratio AH ADM SS ALP [Catalytic activity/Vol] 104 U/L Normal 38 - 126 U/L AH ADM SS ALT No additional P-5'-P [Catalytic activity/Vol] 29 U/L Normal 12 - 55 U/L AH ADM SS AST [Catalytic activity/Vol] 32 U/L Normal 8 - 34 U/L AH ADM SS Basophils (Bld) [#/Vol] 0.1 103/mcL Normal 0.0 - 0.3 10^3/mcL AH Workflow SS Basophils/100 WBC (Bld) 0.8 % Normal 0.0 - 2.5 % Workflow SS Bilirubin [Mass/Vol] 0.80 mg/dL Normal 0.20 - 1.20 mg/dL AH ADM SS Comment on above: Interpretive Data: U se of this assay is not recommended for patients undergoing treatment with eltrombopag due to the potential for falsely elevated results. Calcium [Mass/Vol] 9.5 mg/dL Normal 8.7 - 10. 4 mg/dL AH ADM SS Chloride [Moles/Vol] 105 mmol/L Normal 98 - 11 0 mEq/L AH ADM SS CO2 [Moles/Vol] 26 mmol/L Normal 22 - 32 mEq/L AH ADM SS Creatinine [Mass/Vol] 1.74 mg/dL High 0.60 - 1.40 mg/dL ADM SS Comment on above: Interpretive Data: T esting performed on [employer] analyzer using enzymatic creatinine methodology. Electrolyte Balance 7.0 mEq/L Normal 4.0 - 15 .0 mEq/L AH ADM SS Eosinophils (Bld) [#/Vol] 0.8 103/mcL High 0.0 - 0.7 10^3/mcL Workflow SS Eosinophils/100 WBC (Bld) 8.5 % High 0.0 - 6.0 % Workflow SS Erythrocyte distribution width (RBC) [Ratio] 16.9 % High 11.5 - 15.5 % Workflow SS Free T3 [Mass/Vol] 3.81 pg/mL Normal 2.30 - 4. 20 pg/mL AH ADM SS Free T4 [Mass/Vol] 1.40 ng/dL Normal 0.89 - 1. 76 ng/dL AH ADM SS Comment on above: Interpretive Data: * *Note - New Reference Range in effect 19 GFR/1.73 sq M.predicted among blacks MDRD (S/P/Bld) [Vol rate/Area] 52 ml/min/1.73sqm Invalid Interpretation Code [facility] Comment on above: Interpretive Data: GFR Population mean for , Non- Americans Ages 20-29 = 116 mL/min/1.73 sq.m. Ages 30-39 = 107 mL/min/1.73 sq.m. Ages 40-49 = 99 mL/min/1.73 sq.m. Ages 50-59 = 93 mL/min/1.73 sq.m. Ages 60-69 = 85 mL/min/1.73 sq.m. Ages 70+ = 75 mL/min/1.73 sq.m. Chronic Kidney Disease: Less than 60 mL/min/1.73 square meters End Stage Renal Disease: Less than 15 mL/min/1.73 square meters GFR/1.73 sq M.predicted among non-blacks MDRD (S/P/Bld) [Vol rate/Area] 43 ml/min/1.73sqm Invalid Interpretation Code [facility] Comment on above: Interpretive Data: GFR Population mean for , Non- Americans Ages 20-29 = 116 mL/min/1.73 sq.m. Ages 30-39 = 107 mL/min/1.73 sq.m. Ages 40-49 = 99 mL/min/1.73 sq.m. Ages 50-59 = 93 mL/min/1.73 sq.m. Ages 60-69 = 85 mL/min/1.73 sq.m. Ages 70+ = 75 mL/min/1.73 sq.m. Chronic Kidney Disease: Less than 60 mL/min/1.73 square meters End Stage Renal Disease: Less than 15 mL/min/1.73 square meters Globulin 3.9 G/dL High 1.5 - 3.8 G/dL [facility] Glucose [Mass/Vol] 108 mg/dL Normal 70 - 110 mg/dL [facility] Hematocrit (Bld) [Volume fraction] 48.9 % Normal 40.0 - 52.0 % [facility] Hemoglobin (Bld) [Mass/Vol] 16.5 G/dL Normal 13.0 - 17.5 G/dL AH Workflow SS LDH Lactate to pyruvate reaction [Catalytic activity/Vol] 244 1 Normal 120 - 246 U/L ADM SS Lymphocytes (Bld) [#/Vol] 1.5 103/mcL Normal 0.9 - 4.3 10^3/mcL AH Workflow SS Lymphocytes/100 WBC (Bld) 15.6 % Low 20.0 - 40.0 % Workflow SS MCH (RBC) [Entitic mass] 30.8 pg Normal 27.0 - 33.0 pg Workflow SS MCHC 33.8 G/dL Normal 32.0 - 36.0 G/dL Workflow SS MCV (RBC) [Entitic vol] 91.2 fL Normal 81.0 - 100.0 fL Workflow SS Monocytes (Bld) [#/Vol] 0.9 103/mcL Normal 0.1 - 1.4 10^3/mcL Workflow SS Monocytes/100 WBC (Bld) 8.8 % Normal 2.0 - 13.0 % Workflow SS Neutrophils (Bld) [#/Vol] 6.4 103/mcL Normal 2.3 - 8.1 10^3/mcL Workflow SS Neutrophils/100 WBC (Bld) 66.3 % Normal 50.0 - 75.0 % Workflow SS Platelet mean volume (Bld) [Entitic vol] 7.8 fL Normal 6.4 - 10.5 fL Workflow SS Platelets (Bld) [#/Vol] 248 103/mcL Normal 150 - 450 10^3/mcL Workflow SS Potassium [Moles/Vol] 4.0 mmol/L Normal 3.5 - 5.0 mEq/L ADM SS Protein [Mass/Vol] 7.8 G/dL Normal 5.7 - 8.2 G/dL ADM SS Comment on above: Interpretive Data: * *Note - New Reference Range in effect 19 RBC (Bld) [#/Vol] 5.36 106/mcL Normal 4.50 - 6.0 0 10^6/mcL Workflow SS Sodium [Moles/Vol] 138 mmol/L Normal 136 - 145 mEq/L ADM SS TSH Qn 1.361 mIU/mL Normal 0.550 - 4.780 mIU/mL ADM SS Comment on above: Interpretive Data: * *Note - New Reference Range in effect 19 Urea nitrogen [Mass/Vol] 33.0 mg/dL High 8.0 - 22.0 mg/dL AH ADM SS Urea nitrogen/Creatinine [Mass ratio] 19.0 ratio Normal 10.0 - 22.0 ratio AH ADM SS WBC (Bld) [#/Vol] 9.7 103/mcL Normal 4.5 - 10.8 10^3/mcL AH Workflow SS LABORATORYOrdered By: SYSTEM SYSTEM on 11-03-2023 Calcium [Mass/Vol] 9.2 mg/dL Normal 8.4 - 10. 2 mg/dL AO ADM SS Chloride [Moles/Vol] 102 mmol/L Normal 98 - 10 7 mmol/L AO ADM SS CO2 [Moles/Vol] 29 mmol/L Normal 22 - 29 mmol/L AO ADM SS Creatinine [Mass/Vol] 1.97 mg/dL High 0.70 - 1.30 mg/dL AO ADM SS Comment on above: Interpretive Data: T esting performed on [employer] EX[employer] analyzer using a modified kinetic Portillo technique. Electrolyte Balance 9.0 mEq/L Normal 4.0 - 15 .0 mEq/L AO ADM SS GFR/1.73 sq M.predicted among blacks MDRD (S/P/Bld) [Vol rate/Area] 45 ml/min/1.73sqm Invalid Interpretation Code AO Chemistry S Comment on above: Interpretive Data: GFR Population mean for , Non- Americans Ages 20-29 = 116 mL/min/1.73 sq.m. Ages 30-39 = 107 mL/min/1.73 sq.m. Ages 40-49 = 99 mL/min/1.73 sq.m. Ages 50-59 = 93 mL/min/1.73 sq.m. Ages 60-69 = 85 mL/min/1.73 sq.m. Ages 70+ = 75 mL/min/1.73 sq.m. Chronic Kidney Disease: Less than 60 mL/min/1.73 square meters End Stage Renal Disease: Less than 15 mL/min/1.73 square meters GFR/1.73 sq M.predicted among non-blacks MDRD (S/P/Bld) [Vol rate/Area] 37 ml/min/1.73sqm Invalid Interpretation Code AO Chemistry S Comment on above: Interpretive Data: GFR Population mean for , Non- Americans Ages 20-29 = 116 mL/min/1.73 sq.m. Ages 30-39 = 107 mL/min/1.73 sq.m. Ages 40-49 = 99 mL/min/1.73 sq.m. Ages 50-59 = 93 mL/min/1.73 sq.m. Ages 60-69 = 85 mL/min/1.73 sq.m. Ages 70+ = 75 mL/min/1.73 sq.m. Chronic Kidney Disease: Less than 60 mL/min/1.73 square meters End Stage Renal Disease: Less than 15 mL/min/1.73 square meters Glucose [Mass/Vol] 103 mg/dL Normal 70 - 105 mg/dL AO ADM SS Potassium [Moles/Vol] 4.2 mmol/L Normal 3.5 - 5.1 mmol/L AO ADM SS Sodium [Moles/Vol] 140 mmol/L Normal 136 - 145 mmol/L AO ADM SS Urea nitrogen [Mass/Vol] 31 mg/dL High 7 - 18 mg/dL AO ADM SS Urea nitrogen/Creatinine [Mass ratio] 16 ratio Normal 7 - 27 ratio AO ADM SS LABORATORYOrdered By: SYSTEM SYSTEM on 10-31-2023 PT Coag (PPP) [Time] 38.5 s High 9.0 - 1 4.4 seconds Tiff Comment on above: Interpretive Data: E ffective 08/28/07, Protime results may be affected by some antibiotics (i.e. Ciprofloxacin, Azithromycin, Bactrim) which may potentiate the action of oral anticoagulants, with further increases in Protime/INR. PT International Ratio 3.3 ratio Invalid Interpretation Code Tiff Comment on above: Interpretive Data: Cindy briggs [employer] [place] [employer] (CHEST, 1991, [id number]) recommended therapeutic range for oral anticoagulant therapy is: LOW RISK: Prophylaxis of venous thrombosis INR: 2.0-3.0 Treatment of pulmonary embolism 2.0-3.0 Prevention of systemic embolism 2.0-3.0 HIGH RISK: Mechanical prosthetic valves 2.5-3.5 .Auto Diffon 10-19-2023 Basophil, Absolute 0.1 10 3/mcL Normal 0.0-0.3 [facility] ([place]) Comment on above: Performed By: #### C MP, ADIFF, GFR, TSH, FT3, FT4, CBC, JUANCARLOS, LD, ANEU ####[address] [address] Basophils/100 WBC (Bld) 1.2 % Normal 0.0-2.5 [facility] ([place]) Comment on above: Performed By: #### C MP, ADIFF, GFR, TSH, FT3, FT4, CBC, JUANCARLOS, LD, ANEU ####[address] [address] Eosinophil, Absolute 0.8 10 3/mcL High 0.0-0.7 [facility] ([place]) Comment on above: Performed By: #### C MP, ADIFF, GFR, TSH, FT3, FT4, CBC, JUANCARLOS, LD, ANEU ####[address] [address] Eosinophils/100 WBC (Bld) 12.2 % High 0.0-6.0 [facility] ([place]) Comment on above: Performed By: #### C MP, ADIFF, GFR, TSH, FT3, FT4, CBC, JUANCARLOS, LD, ANEU ####[address] [address] Lymphocyte, Absolute 1.3 10 3/mcL Normal 0.9-4.3 [facility] ([place]) Comment on above: Performed By: #### C MP, ADIFF, GFR, TSH, FT3, FT4, CBC, JUANCARLOS, LD, ANEU ####[address] [address] Lymphocytes/100 WBC (Bld) 19.0 % Low 20.0-40.0 [facility] ([place]) Comment on above: Performed By: #### C MP, ADIFF, GFR, TSH, FT3, FT4, CBC, JUANCARLOS, LD, ANEU ####[address] [address] Monocyte, Absolute 0.6 10 3/mcL Normal 0.1-1.4 [facility] ([place]) Comment on above: Performed By: #### C MP, ADIFF, GFR, TSH, FT3, FT4, CBC, JUANCARLOS, LD, ANEU ####[employer] [address] Monocytes/100 WBC (Bld) 8.6 % Normal 2.0-13.0 [facility] ([place]) Comment on above: Performed By: #### C MP, ADIFF, GFR, TSH, FT3, FT4, CBC, JUANCARLOS, LD, ANEU ####[address] [address] Neutrophils/100 WBC (Bld) 59.0 % Normal 50.0-75.0 [facility] ([place]) Comment on above: Performed By: #### C MP, ADIFF, GFR, TSH, FT3, FT4, CBC, JUANCARLOS, LD, ANEU ####[address] [address] .GFRon 10-19-2023 GFR Non- 55 ml/min/1.73sqm Normal [facility] ([place]) Comment on above: Result Comment: GFR Population mean for , Non- Americans Ages 20-29 = 116 mL/min/1.73 sq.m. Ages 30-39 = 107 mL/min/1.73 sq.m. Ages 40-49 = 99 mL/min/1.73 sq.m. Ages 50-59 = 93 mL/min/1.73 sq.m. Ages 60-69 = 85 mL/min/1.73 sq.m. Ages 70+ = 75 mL/min/1.73 sq.m.Chronic Kidney Disease: Less than 60 mL/min/1.73 square metersEnd Stage Renal Disease: Less than 15 mL/min/1.73 square meters Performed By: #### C MP, ADIFF, GFR, TSH, FT3, FT4, CBC, JUANCARLOS, LD, ANEU ####[address] [address] GFR >60 Normal [facility] ([place]) Comment on above: Result Comment: GFR Population mean for , Non- Americans Ages 20-29 = 116 mL/min/1.73 sq.m. Ages 30-39 = 107 mL/min/1.73 sq.m. Ages 40-49 = 99 mL/min/1.73 sq.m. Ages 50-59 = 93 mL/min/1.73 sq.m. Ages 60-69 = 85 mL/min/1.73 sq.m. Ages 70+ = 75 mL/min/1.73 sq.m.Chronic Kidney Disease: Less than 60 mL/min/1.73 square metersEnd Stage Renal Disease: Less than 15 mL/min/1.73 square meters Performed By: #### C MP, ADIFF, GFR, TSH, FT3, FT4, CBC, JUANCARLOS, LD, ANEU ####[place] [address] .NEUABSon 10-19-2023 Neutrophil, Absolute 4.0 10 3/mcL Normal 2.3-8.1 [facility] ([place]) Comment on above: Performed By: #### C MP, ADIFF, GFR, TSH, FT3, FT4, CBC, JUANCARLOS, LD, ANEU ####[place] [address] CBCon 10-19-2023 Erythrocyte distribution width (RBC) [Ratio] 16.7 % High 11.5-15.5 [facility] ([place]) Comment on above: Performed By: #### C MP, ADIFF, GFR, TSH, FT3, FT4, CBC, JUANCARLOS, LD, ANEU ####[place] [address] Hematocrit (Bld) [Volume fraction] 44.6 % Normal 40.0-52.0 [facility] ([place]) Comment on above: Performed By: #### C MP, ADIFF, GFR, TSH, FT3, FT4, CBC, JUANCARLOS, LD, ANEU ####[place] [address] Hgb 14.7 G/dL Normal 13.0-17.5 [facility] ([place]) Comment on above: Performed By: #### C MP, ADIFF, GFR, TSH, FT3, FT4, CBC, JUANCARLOS, LD, ANEU ####[place] [address] MCH (RBC) [Entitic mass] 30.4 pg Normal 27.0-33.0 [facility] ([place]) Comment on above: Performed By: #### C MP, ADIFF, GFR, TSH, FT3, FT4, CBC, JUANCARLOS, LD, ANEU ####[place] [address] MCHC 32.9 G/dL Normal 32.0-36.0 [facility] ([place]) Comment on above: Performed By: #### C MP, ADIFF, GFR, TSH, FT3, FT4, CBC, JUANCARLOS, LD, ANEU ####[place] [address] MCV (RBC) [Entitic vol] 92.6 fL Normal 81.0-100.0 [facility] ([place]) Comment on above: Performed By: #### C MP, ADIFF, GFR, TSH, FT3, FT4, CBC, JUANCARLOS, LD, ANEU ####[place] [address] Platelet 176 10 3/mcL Normal 150-450 [facility] ([place]) Comment on above: Performed By: #### C MP, ADIFF, GFR, TSH, FT3, FT4, CBC, JUANCARLOS, LD, ANEU ####[place] [address] Platelet mean volume (Bld) [Entitic vol] 7.7 fL Normal 6.4-10.5 [facility] ([place]) Comment on above: Performed By: #### C MP, ADIFF, GFR, TSH, FT3, FT4, CBC, JUANCARLOS, LD, ANEU ####[place] [address] RBC 4.82 10 6/mcL Normal 4.50-6.00 [facility] ([place] Comment on above: Performed By: #### C MP, ADIFF, GFR, TSH, FT3, FT4, CBC, JUANCARLOS, LD, ANEU ####[place] [address] WBC 6.7 10 3/mcL Normal 4.5-10.8 [facility] ([place] Comment on above: Performed By: #### C MP, ADIFF, GFR, TSH, FT3, FT4, CBC, JUANCARLOS, LD, ANEU ####[address] [address] CMPon 10-19-2023 Albumin Level 3.4 G/dL Normal 3.2-4.8 [facility] ([place]) Comment on above: Performed By: #### C MP, ADIFF, GFR, TSH, FT3, FT4, CBC, JUANCARLOS, LD, ANEU ####[place] [address] Albumin/Globulin [Mass ratio] 0.9 {ratio} Normal 0.9-1.6 [facility] ([place]) Comment on above: Performed By: #### C MP, ADIFF, GFR, TSH, FT3, FT4, CBC, JUANCARLOS, LD, ANEU ####[place] [address] ALP [Catalytic activity/Vol] 112 U/L Normal 38-126 [facility] ([place]) Comment on above: Performed By: #### C MP, ADIFF, GFR, TSH, FT3, FT4, CBC, JUANCARLOS, LD, ANEU ####[place] [address] ALT [Catalytic activity/Vol] 18 U/L Normal 12-55 [facility] ([place]) Comment on above: Performed By: #### C MP, ADIFF, GFR, TSH, FT3, FT4, CBC, JUANCARLOS, LD, ANEU ####[place] [address] AST [Catalytic activity/Vol] 19 U/L Normal 8-34 [facility] ([place]) Comment on above: Performed By: #### C MP, ADIFF, GFR, TSH, FT3, FT4, CBC, JUANCARLOS, LD, ANEU ####[place] [address] Bili Total 0.80 mg/dL Normal 0.20-1.20 [facility] ([place]) Comment on above: Result Comment: Use of this assay is not recommended for patients undergoing treatment with eltrombopag due to the potential for falsely elevated results. Performed By: #### C MP, ADIFF, GFR, TSH, FT3, FT4, CBC, JUANCARLOS, LD, ANEU ####[place] [address] BUN/Creatinine Ratio 14.3 ratio Normal 10.0-22.0 [facility] ([place]) Comment on above: Performed By: #### C MP, ADIFF, GFR, TSH, FT3, FT4, CBC, JUANCARLOS, LD, ANEU ####[place] [address] Calcium [Mass/Vol] 9.2 mg/dL Normal 8.7-10.4 [facility] ([place]) Comment on above: Performed By: #### C MP, ADIFF, GFR, TSH, FT3, FT4, CBC, JUANCARLOS, LD, ANEU ####[place] [address] Chloride [Moles/Vol] 103 mmol/L Normal 98-110 [facility] ([place]) Comment on above: Performed By: #### C MP, ADIFF, GFR, TSH, FT3, FT4, CBC, JUANCARLOS, LD, ANEU ####[place] [address] CO2 [Moles/Vol] 30 mmol/L Normal 22-32 [facility] ([place] Comment on above: Performed By: #### C MP, ADIFF, GFR, TSH, FT3, FT4, CBC, JUANCARLOS, LD, ANEU ####[place] [address] Creatinine [Mass/Vol] 1.40 mg/dL Normal 0.60-1.40 [facility] ([place]) Comment on above: Result Comment: Test ing performed on [employer] analyzer using enzymatic creatinine methodology. Performed By: #### C MP, ADIFF, GFR, TSH, FT3, FT4, CBC, JUANCARLOS, LD, ANEU ####[place] [address] Electrolyte Balance 6.0 mEq/L Normal 4.0-15.0 [facility] ([place]) Comment on above: Performed By: #### C MP, ADIFF, GFR, TSH, FT3, FT4, CBC, JUANCARLOS, LD, ANEU ####[place] [address] Globulin 3.6 G/dL Normal 1.5-3.8 [facility] ([place]) Comment on above: Performed By: #### C MP, ADIFF, GFR, TSH, FT3, FT4, CBC, JUANCARLOS, LD, ANEU ####[address] [address] Glucose [Mass/Vol] 104 mg/dL Normal 70-110 [facility] ([place]) Comment on above: Performed By: #### C MP, ADIFF, GFR, TSH, FT3, FT4, CBC, JUANCARLOS, LD, ANEU ####[address] [address] Potassium [Moles/Vol] 3.6 mmol/L Normal 3.5-5.0 [facility] ([place]) Comment on above: Performed By: #### C MP, ADIFF, GFR, TSH, FT3, FT4, CBC, JUANCARLOS, LD, ANEU ####[place] [id number] Sodium [Moles/Vol] 139 mmol/L Normal 136-145 [facility] ([place]) Comment on above: Performed By: #### C MP, ADIFF, GFR, TSH, FT3, FT4, CBC, JUANCARLOS, LD, ANEU ####[place] [address] Total Protein 7.0 G/dL Normal 5.7-8.2 [facility] ([place]) Comment on above: Result Comment: No te - New Reference Range in effect 19 Performed By: #### C MP, ADIFF, GFR, TSH, FT3, FT4, CBC, JUANCARLOS, LD, ANEU ####[address] [address] Urea nitrogen [Mass/Vol] 20.0 mg/dL Normal 8.0-22.0 [facility] ([place]) Comment on above: Performed By: #### C MP, ADIFF, GFR, TSH, FT3, FT4, CBC, JUANCARLOS, LD, ANEU ####[place] [address] CORTon 10-19-2023 Cortisol Level 13.2 mcg/dL Normal [facility] ([place]) Comment on above: Result Comment: Juancarlos isol AM Reference Range 6.5-26.0 mcg/dLCortisol PM Reference Range 3.5-15.0 mcg/dL Performed By: #### C MP, ADIFF, GFR, TSH, FT3, FT4, CBC, JUANCARLOS, LD, ANEU ####[place] [address] FT3on 10-19-2023 Free T3 [Mass/Vol] 3.73 pg/mL Normal 2.30-4.20 [facility] ([place]) Comment on above: Performed By: #### C MP, ADIFF, GFR, TSH, FT3, FT4, CBC, JUANCARLOS, LD, ANEU ####[place] [address] FT4on 10-19-2023 Free T4 [Mass/Vol] 1.20 ng/dL Normal 0.89-1.76 [facility] ([place]) Comment on above: Result Comment: No te - New Reference Range in effect 19 Performed By: #### C MP, ADIFF, GFR, TSH, FT3, FT4, CBC, JUANCARLOS, LD, ANEU ####[place] [address] LABORATORYOrdered By: SYSTEM SYSTEM on 10-19-2023 Albumin BCP dye [Mass/Vol] 3.4 G/dL Normal 3.2 - 4.8 G/dL ADM SS Albumin/Globulin [Mass ratio] 0.9 {ratio} Normal 0.9 - 1.6 ratio ADM SS ALP [Catalytic activity/Vol] 112 U/L Normal 38 - 126 U/L ADM SS ALT No additional P-5'-P [Catalytic activity/Vol] 18 U/L Normal 12 - 55 U/L ADM SS AST [Catalytic activity/Vol] 19 U/L Normal 8 - 34 U/L ADM SS Basophils (Bld) [#/Vol] 0.1 103/mcL Normal 0.0 - 0.3 10^3/mcL Workflow SS Basophils/100 WBC (Bld) 1.2 % Normal 0.0 - 2.5 % Workflow SS Bilirubin [Mass/Vol] 0.80 mg/dL Normal 0.20 - 1.20 mg/dL ADM SS Comment on above: Interpretive Data: U se of this assay is not recommended for patients undergoing treatment with eltrombopag due to the potential for falsely elevated results. Calcium [Mass/Vol] 9.2 mg/dL Normal 8.7 - 10. 4 mg/dL ADM SS Chloride [Moles/Vol] 103 mmol/L Normal 98 - 11 0 mEq/L ADM SS CO2 [Moles/Vol] 30 mmol/L Normal 22 - 32 mEq/L ADM SS Cortisol [Mass/Vol] 13.2 ug/dL Invalid Interpretation Code ADM SS Comment on above: Interpretive Data: C ortisol AM Reference Range 6.5-26.0 mcg/dL Cortisol PM Reference Range 3.5-15.0 mcg/dL Creatinine [Mass/Vol] 1.40 mg/dL Normal 0.60 - 1.40 mg/dL ADM SS Comment on above: Interpretive Data: T esting performed on [employer] analyzer using enzymatic creatinine methodology. Electrolyte Balance 6.0 mEq/L Normal 4.0 - 15 .0 mEq/L ADM SS Eosinophils (Bld) [#/Vol] 0.8 103/mcL High 0.0 - 0.7 10^3/mcL Workflow SS Eosinophils/100 WBC (Bld) 12.2 % High 0.0 - 6.0 % Workflow Erythrocyte distribution width (RBC) [Ratio] 16.7 % High 11.5 - 15.5 % Workflow Free T3 [Mass/Vol] 3.73 pg/mL Normal 2.30 - 4. 20 pg/mL [facility] Free T4 [Mass/Vol] 1.20 ng/dL Normal 0.89 - 1. 76 ng/dL ADM Comment on above: Interpretive Data: * *Note - New Reference Range in effect 19 GFR/1.73 sq M.predicted among blacks MDRD (S/P/Bld) [Vol rate/Area] ml/min/1.73sqm Invalid Interpretation Code ADM SS Comment on above: Interpretive Data: GFR Population mean for , Non- Americans Ages 20-29 = 116 mL/min/1.73 sq.m. Ages 30-39 = 107 mL/min/1.73 sq.m. Ages 40-49 = 99 mL/min/1.73 sq.m. Ages 50-59 = 93 mL/min/1.73 sq.m. Ages 60-69 = 85 mL/min/1.73 sq.m. Ages 70+ = 75 mL/min/1.73 sq.m. Chronic Kidney Disease: Less than 60 mL/min/1.73 square meters End Stage Renal Disease: Less than 15 mL/min/1.73 square meters GFR/1.73 sq M.predicted among non-blacks MDRD (S/P/Bld) [Vol rate/Area] 55 ml/min/1.73sqm Invalid Interpretation Code ADM SS Comment on above: Interpretive Data: GFR Population mean for , Non- Americans Ages 20-29 = 116 mL/min/1.73 sq.m. Ages 30-39 = 107 mL/min/1.73 sq.m. Ages 40-49 = 99 mL/min/1.73 sq.m. Ages 50-59 = 93 mL/min/1.73 sq.m. Ages 60-69 = 85 mL/min/1.73 sq.m. Ages 70+ = 75 mL/min/1.73 sq.m. Chronic Kidney Disease: Less than 60 mL/min/1.73 square meters End Stage Renal Disease: Less than 15 mL/min/1.73 square meters Globulin 3.6 G/dL Normal 1.5 - 3.8 G/dL ADM SS Glucose [Mass/Vol] 104 mg/dL Normal 70 - 110 mg/dL ADM SS Hematocrit (Bld) [Volume fraction] 44.6 % Normal 40.0 - 52.0 % Workflow SS Hemoglobin (Bld) [Mass/Vol] 14.7 G/dL Normal 13.0 - 17.5 G/dL Workflow SS LDH Lactate to pyruvate reaction [Catalytic activity/Vol] 187 1 Normal 120 - 246 U/L ADM SS Lymphocytes (Bld) [#/Vol] 1.3 103/mcL Normal 0.9 - 4.3 10^3/mcL Workflow SS Lymphocytes/100 WBC (Bld) 19.0 % Low 20.0 - 40.0 % Workflow SS MCH (RBC) [Entitic mass] 30.4 pg Normal 27.0 - 33.0 pg AH Workflow SS MCHC 32.9 G/dL Normal 32.0 - 36.0 G/dL AH Workflow SS MCV (RBC) [Entitic vol] 92.6 fL Normal 81.0 - 100.0 fL AH Workflow SS Monocytes (Bld) [#/Vol] 0.6 103/mcL Normal 0.1 - 1.4 10^3/mcL AH Workflow SS Monocytes/100 WBC (Bld) 8.6 % Normal 2.0 - 13.0 % AH Workflow SS Neutrophils (Bld) [#/Vol] 4.0 103/mcL Normal 2.3 - 8.1 10^3/mcL AH Workflow SS Neutrophils/100 WBC (Bld) 59.0 % Normal 50.0 - 75.0 % AH Workflow SS Platelet mean volume (Bld) [Entitic vol] 7.7 fL Normal 6.4 - 10.5 fL AH Workflow SS Platelets (Bld) [#/Vol] 176 103/mcL Normal 150 - 450 10^3/mcL AH Workflow SS Potassium [Moles/Vol] 3.6 mmol/L Normal 3.5 - 5.0 mEq/L ADM SS Protein [Mass/Vol] 7.0 G/dL Normal 5.7 - 8.2 G/dL ADM SS Comment on above: Interpretive Data: * *Note - New Reference Range in effect 19 RBC (Bld) [#/Vol] 4.82 106/mcL Normal 4.50 - 6.0 0 10^6/mcL AH Workflow SS Sodium [Moles/Vol] 139 mmol/L Normal 136 - 145 mEq/L ADM SS TSH Qn 4.392 mIU/mL Normal 0.550 - 4.780 mIU/mL AH ADM SS Comment on above: Interpretive Data: * *Note - New Reference Range in effect 19 Urea nitrogen [Mass/Vol] 20.0 mg/dL Normal 8.0 - 22.0 mg/dL AH ADM SS Urea nitrogen/Creatinine [Mass ratio] 14.3 ratio Normal 10.0 - 22.0 ratio AH ADM SS WBC (Bld) [#/Vol] 6.7 103/mcL Normal 4.5 - 10.8 10^3/mcL AH Workflow SS LDHon 10-19-2023 LDH 187 U/L Normal 120-246 [facility] ([place]) Comment on above: Performed By: #### C MP, ADIFF, GFR, TSH, FT3, FT4, CBC, JUANCARLOS, LD, ANEU ####[address] [address] TSHon 10-19-2023 TSH 4.392 mIU/mL Normal 0.550-4.780 [facility] ([place]) Comment on above: Result Comment: No te - New Reference Range in effect 19 Performed By: #### C MP, ADIFF, GFR, TSH, FT3, FT4, CBC, JUANCARLOS, LD, ANEU ####[place] [address] CT ABDOMEN/PELVIS W/CONTRAST on 10-12-2023 CT ABDOMEN/PELVIS W/CONTRAST Normal [facility] ([place]) CT THORAX W/ CONTRASTon 09-14 CT THORAX W/ CONTRAST Normal [facility] ([place]) .Auto Diffon 09-25-2023 Basophil, Absolute 0.1 10 3/mcL Normal 0.0-0.3 [facility] ([place]) Comment on above: Performed By: #### P RO, MG, BMP, ADIFF, CBC, GFR, ANEU ####[address] [address] Basophils/100 WBC (Bld) 0.6 % Normal 0.0-2.5 [facility] ([place]) Comment on above: Performed By: #### P RO, MG, BMP, ADIFF, CBC, GFR, ANEU ####[address] [address] Eosinophil, Absolute 0.3 10 3/mcL Normal 0.0-0.7 [facility] ([place]) Comment on above: Performed By: #### P RO, MG, BMP, ADIFF, CBC, GFR, ANEU ####[address] [address] Eosinophils/100 WBC (Bld) 2.8 % Normal 0.0-6.0 [facility] ([place]) Comment on above: Performed By: #### P RO, MG, BMP, ADIFF, CBC, GFR, ANEU ####[address] [address] Lymphocyte, Absolute 1.2 10 3/mcL Normal 0.9-4.3 [facility] ([place]) Comment on above: Performed By: #### P RO, MG, BMP, ADIFF, CBC, GFR, ANEU ####[address] [address] Lymphocytes/100 WBC (Bld) 10.0 % Low 20.0-40.0 [facility] ([place]) Comment on above: Performed By: #### P RO, MG, BMP, ADIFF, CBC, GFR, ANEU ####[address] [address] Monocyte, Absolute 1.0 10 3/mcL Normal 0.1-1.4 [facility] ([place]) Comment on above: Performed By: #### P RO, MG, BMP, ADIFF, CBC, GFR, ANEU ####[address] [address] Monocytes/100 WBC (Bld) 8.1 % Normal 2.0-13.0 [facility] ([place]) Comment on above: Performed By: #### P RO, MG, BMP, ADIFF, CBC, GFR, ANEU ####[address] [address] Neutrophils/100 WBC (Bld) 78.5 % High 50.0-75.0 [facility] ([place]) Comment on above: Performed By: #### P RO, MG, BMP, ADIFF, CBC, GFR, ANEU ####[address] [address] .GFRon 09-25-2023 GFR >60 Normal [facility] ([place]) Comment on above: Result Comment: GFR Population mean for , Non- Americans Ages 20-29 = 116 mL/min/1.73 sq.m. Ages 30-39 = 107 mL/min/1.73 sq.m. Ages 40-49 = 99 mL/min/1.73 sq.m. Ages 50-59 = 93 mL/min/1.73 sq.m. Ages 60-69 = 85 mL/min/1.73 sq.m. Ages 70+ = 75 mL/min/1.73 sq.m.Chronic Kidney Disease: Less than 60 mL/min/1.73 square metersEnd Stage Renal Disease: Less than 15 mL/min/1.73 square meters Performed By: #### P RO, MG, BMP, ADIFF, CBC, GFR, ANEU ####[address] [address] GFR Non- 50 ml/min/1.73sqm Normal [facility] ([place]) Comment on above: Result Comment: GFR Population mean for , Non- Americans Ages 20-29 = 116 mL/min/1.73 sq.m. Ages 30-39 = 107 mL/min/1.73 sq.m. Ages 40-49 = 99 mL/min/1.73 sq.m. Ages 50-59 = 93 mL/min/1.73 sq.m. Ages 60-69 = 85 mL/min/1.73 sq.m. Ages 70+ = 75 mL/min/1.73 sq.m.Chronic Kidney Disease: Less than 60 mL/min/1.73 square metersEnd Stage Renal Disease: Less than 15 mL/min/1.73 square meters Performed By: #### P RO, MG, BMP, ADIFF, CBC, GFR, ANEU ####[address] [address] .NEUABSon 09-25-2023 Neutrophil, Absolute 9.4 10 3/mcL High 2.3-8.1 [facility] ([place]) Comment on above: Performed By: #### P RO, MG, BMP, ADIFF, CBC, GFR, ANEU ####[address] [address] BMPon 09-25-2023 BUN/Creatinine Ratio 23.8 ratio High 10.0-22.0 [facility] ([place]) Comment on above: Performed By: #### P RO, MG, BMP, ADIFF, CBC, GFR, ANEU ####[address] [address] Calcium [Mass/Vol] 8.8 mg/dL Normal 8.7-10.4 [facility] ([place]) Comment on above: Performed By: #### P RO, MG, BMP, ADIFF, CBC, GFR, ANEU ####[place] [address] Chloride [Moles/Vol] 101 mmol/L Normal 98-110 [facility] ([place]) Comment on above: Performed By: #### P RO, MG, BMP, ADIFF, CBC, GFR, ANEU ####[place] [address] CO2 [Moles/Vol] 38 mmol/L High 22-32 [facility] ([place]) Comment on above: Performed By: #### P RO, MG, BMP, ADIFF, CBC, GFR, ANEU ####[place] [address] Creatinine [Mass/Vol] 1.51 mg/dL High 0.60-1.40 [facility] ([place]) Comment on above: Performed By: #### P RO, MG, BMP, ADIFF, CBC, GFR, ANEU ####[place] [address] Electrolyte Balance 1.0 mEq/L Low 4.0-15.0 [facility] ([place]) Comment on above: Performed By: #### P RO, MG, BMP, ADIFF, CBC, GFR, ANEU ####[place] [address] Glucose [Mass/Vol] 112 mg/dL High 70-110 [facility] ([place]) Comment on above: Performed By: #### P RO, MG, BMP, ADIFF, CBC, GFR, ANEU ####[place] [address] Potassium [Moles/Vol] 4.3 mmol/L Normal 3.5-5.0 [facility] ([place]) Comment on above: Performed By: #### P RO, MG, BMP, ADIFF, CBC, GFR, ANEU ####[place] [address] Sodium [Moles/Vol] 140 mmol/L Normal 136-145 [facility] ([place]) Comment on above: Performed By: #### P RO, MG, BMP, ADIFF, CBC, GFR, ANEU ####[place] [address] Urea nitrogen [Mass/Vol] 36.0 mg/dL High 8.0-22.0 [facility] ([place] Comment on above: Performed By: #### P RO, MG, BMP, ADIFF, CBC, GFR, ANEU ####[place] [address] CBCon 09-25-2023 Erythrocyte distribution width (RBC) [Ratio] 16.4 % High 11.5-15.5 [facility] ([place] Comment on above: Performed By: #### P RO, MG, BMP, ADIFF, CBC, GFR, ANEU ####[place] [address] Hematocrit (Bld) [Volume fraction] 44.8 % Normal 40.0-52.0 [facility] ([place] Comment on above: Performed By: #### P RO, MG, BMP, ADIFF, CBC, GFR, ANEU ####[place] [address] Hgb 14.2 G/dL Normal 13.0-17.5 [facility] ([place] Comment on above: Performed By: #### P RO, MG, BMP, ADIFF, CBC, GFR, ANEU ####[place] [address] MCH (RBC) [Entitic mass] 30.7 pg Normal 27.0-33.0 [facility] ([place] Comment on above: Performed By: #### P RO, MG, BMP, ADIFF, CBC, GFR, ANEU ####[place] [address] MCHC 31.8 G/dL Low 32.0-36.0 [facility] ([place] Comment on above: Performed By: #### P RO, MG, BMP, ADIFF, CBC, GFR, ANEU ####[place] [address] MCV (RBC) [Entitic vol] 96.5 fL Normal 81.0-100.0 [facility] ([place] Comment on above: Performed By: #### P RO, MG, BMP, ADIFF, CBC, GFR, ANEU ####[place] [address] Platelet 206 10 3/mcL Normal 150-450 [facility] ([place] Comment on above: Performed By: #### P RO, MG, BMP, ADIFF, CBC, GFR, ANEU ####[place] [address] Platelet mean volume (Bld) [Entitic vol] 8.3 fL Normal 6.4-10.5 [facility] ([place]) Comment on above: Performed By: #### P RO, MG, BMP, ADIFF, CBC, GFR, ANEU ####[place] [address] RBC 4.64 10 6/mcL Normal 4.50-6.00 [facility] ([place]) Comment on above: Performed By: #### P RO, MG, BMP, ADIFF, CBC, GFR, ANEU ####[place] [address] WBC 12.0 10 3/mcL High 4.5-10.8 [facility] ([place]) Comment on above: Performed By: #### P RO, MG, BMP, ADIFF, CBC, GFR, ANEU ####[place] [address] LABORATORYOrdered By: SYSTEM SYSTEM on 09-25-2023 Basophils (Bld) [#/Vol] 0.1 103/mcL Normal 0.0 - 0.3 10^3/mcL AH Workflow SS Basophils/100 WBC (Bld) 0.6 % Normal 0.0 - 2.5 % AH Workflow SS Calcium [Mass/Vol] 8.8 mg/dL Normal 8.7 - 10. 4 mg/dL AH ADM SS Chloride [Moles/Vol] 101 mmol/L Normal 98 - 11 0 mEq/L AH ADM SS CO2 [Moles/Vol] 38 mmol/L High 22 - 32 mEq/L AH ADM SS Creatinine [Mass/Vol] 1.51 mg/dL High 0.60 - 1.40 mg/dL AH ADM SS Electrolyte Balance 1.0 mEq/L Low 4.0 - 15 .0 mEq/L AH ADM SS Eosinophils (Bld) [#/Vol] 0.3 103/mcL Normal 0.0 - 0.7 10^3/mcL AH Workflow SS Eosinophils/100 WBC (Bld) 2.8 % Normal 0.0 - 6.0 % AH Workflow SS Erythrocyte distribution width (RBC) [Ratio] 16.4 % High 11.5 - 15.5 % AH Workflow SS GFR/1.73 sq M.predicted among blacks MDRD (S/P/Bld) [Vol rate/Area] ml/min/1.73sqm Invalid Interpretation Code [employer] [employer] S Comment on above: Interpretive Data: GFR Population mean for , Non- Americans Ages 20-29 = 116 mL/min/1.73 sq.m. Ages 30-39 = 107 mL/min/1.73 sq.m. Ages 40-49 = 99 mL/min/1.73 sq.m. Ages 50-59 = 93 mL/min/1.73 sq.m. Ages 60-69 = 85 mL/min/1.73 sq.m. Ages 70+ = 75 mL/min/1.73 sq.m. Chronic Kidney Disease: Less than 60 mL/min/1.73 square meters End Stage Renal Disease: Less than 15 mL/min/1.73 square meters GFR/1.73 sq M.predicted among non-blacks MDRD (S/P/Bld) [Vol rate/Area] 50 ml/min/1.73sqm Invalid Interpretation Code [employer] S Comment on above: Interpretive Data: GFR Population mean for , Non- Americans Ages 20-29 = 116 mL/min/1.73 sq.m. Ages 30-39 = 107 mL/min/1.73 sq.m. Ages 40-49 = 99 mL/min/1.73 sq.m. Ages 50-59 = 93 mL/min/1.73 sq.m. Ages 60-69 = 85 mL/min/1.73 sq.m. Ages 70+ = 75 mL/min/1.73 sq.m. Chronic Kidney Disease: Less than 60 mL/min/1.73 square meters End Stage Renal Disease: Less than 15 mL/min/1.73 square meters Glucose [Mass/Vol] 112 mg/dL High 70 - 110 mg/dL ADM SS Hematocrit (Bld) [Volume fraction] 44.8 % Normal 40.0 - 52.0 % Workflow SS Hemoglobin (Bld) [Mass/Vol] 14.2 G/dL Normal 13.0 - 17.5 G/dL Workflow SS Lymphocytes (Bld) [#/Vol] 1.2 103/mcL Normal 0.9 - 4.3 10^3/mcL Workflow SS Lymphocytes/100 WBC (Bld) 10.0 % Low 20.0 - 40.0 % Workflow SS Magnesium [Mass/Vol] 2.4 mg/dL Normal 1.6 - 2 .4 mg/dL ADM SS MCH (RBC) [Entitic mass] 30.7 pg Normal 27.0 - 33.0 pg Workflow SS MCHC 31.8 G/dL Low 32.0 - 36.0 G/dL Workflow SS MCV (RBC) [Entitic vol] 96.5 fL Normal 81.0 - 100.0 fL Workflow SS Monocytes (Bld) [#/Vol] 1.0 103/mcL Normal 0.1 - 1.4 10^3/mcL Workflow SS Monocytes/100 WBC (Bld) 8.1 % Normal 2.0 - 13.0 % Workflow SS Neutrophils (Bld) [#/Vol] 9.4 103/mcL High 2.3 - 8.1 10^3/mcL Workflow SS Neutrophils/100 WBC (Bld) 78.5 % High 50.0 - 75.0 % Workflow SS Platelet mean volume (Bld) [Entitic vol] 8.3 fL Normal 6.4 - 10.5 fL Workflow SS Platelets (Bld) [#/Vol] 206 103/mcL Normal 150 - 450 10^3/mcL Workflow SS Potassium [Moles/Vol] 4.3 mmol/L Normal 3.5 - 5.0 mEq/L ADM SS PT Coag (PPP) [Time] 38.3 s High 9.0 - 1 4.4 seconds [facility] SS Comment on above: Interpretive Data: E ffective 08/28/07, Protime results may be affected by some antibiotics (i.e. Ciprofloxacin, Azithromycin, Bactrim) which may potentiate the action of oral anticoagulants, with further increases in Protime/INR. PT International Ratio 3.3 ratio Invalid Interpretation Code AH [facility] SS Comment on above: Interpretive Data: Cindy briggs [employer] (CHEST, 1991, [id number]) recommended therapeutic range for oral anticoagulant therapy is: LOW RISK: Prophylaxis of venous thrombosis INR: 2.0-3.0 Treatment of pulmonary embolism 2.0-3.0 Prevention of systemic embolism 2.0-3.0 HIGH RISK: Mechanical prosthetic valves 2.5-3.5 RBC (Bld) [#/Vol] 4.64 106/mcL Normal 4.50 - 6.0 0 10^6/mcL AH Workflow SS Sodium [Moles/Vol] 140 mmol/L Normal 136 - 145 mEq/L AH ADM SS Urea nitrogen [Mass/Vol] 36.0 mg/dL High 8.0 - 22.0 mg/dL ADM SS Urea nitrogen/Creatinine [Mass ratio] 23.8 ratio High 10.0 - 22.0 ratio AH ADM SS WBC (Bld) [#/Vol] 12.0 103/mcL High 4.5 - 10.8 10^3/mcL Workflow SS MGon 09-25-2023 Magnesium [Mass/Vol] 2.4 mg/dL Normal 1.6-2.4 [facility] ([place]) Comment on above: Performed By: #### P RO, MG, BMP, ADIFF, CBC, GFR, ANEU ####[place] [id number] PROon 09-25-2023 INR Coag (PPP) [Relative time] 3.3 {INR} Normal [facility] ([place]) Comment on above: Order Comment: order ed secondary to warfarin order Result Comment: [employer] [place] [place] [employer] (CHEST, 1991, [id number])recommended therapeutic range for oral anticoagulant therapy is:LOW RISK: Prophylaxis of venous thrombosis INR: 2.0-3.0 Treatment of pulmonary embolism 2.0-3.0 Prevention of systemic embolism 2.0-3.0HIGH RISK: Mechanical prosthetic valves 2.5-3.5 Performed By: #### P RO, MG, BMP, ADIFF, CBC, GFR, ANEU ####[address] [id number] PT Coag (PPP) [Time] 38.3 s High 9.0-14.4 [facility] ([place]) Comment on above: Order Comment: order ed secondary to warfarin order Result Comment: Effe ctive 08/28/07, Protime results may be affected by some antibiotics (i.e. Ciprofloxacin, Azithromycin, Bactrim) which may potentiate the action of oral anticoagulants, with further increases in Protime/INR. Performed By: #### P RO, MG, BMP, ADIFF, CBC, GFR, ANEU ####[address] [address] XR CHEST 1 VIEWon 09-25-2023 XR CHEST 1 VIEW Normal [facility] ([place]) .Auto Diffon 09-24-2023 Basophil, Absolute 0.0 10 3/mcL Normal 0.0-0.3 [facility] ([place]) Comment on above: Performed By: #### C BC, ANEU, ADIFF, BMP, PBNP, PRO, GFR, MG ####[address] [address] Basophils/100 WBC (Bld) 0.2 % Normal 0.0-2.5 [facility] ([place]) Comment on above: Performed By: #### C BC, ANEU, ADIFF, BMP, PBNP, PRO, GFR, MG ####[address] [address] Eosinophil, Absolute 0.0 10 3/mcL Normal 0.0-0.7 [facility] ([place]) Comment on above: Performed By: #### C BC, ANEU, ADIFF, BMP, PBNP, PRO, GFR, MG ####[address] [address] Eosinophils/100 WBC (Bld) 0.1 % Normal 0.0-6.0 [facility] ([place]) Comment on above: Performed By: #### C BC, ANEU, ADIFF, BMP, PBNP, PRO, GFR, MG ####[address] [address] Lymphocyte, Absolute 0.6 10 3/mcL Low 0.9-4.3 [facility] ([place]) Comment on above: Performed By: #### C BC, ANEU, ADIFF, BMP, PBNP, PRO, GFR, MG ####[address] [address] Lymphocytes/100 WBC (Bld) 6.1 % Low 20.0-40.0 [facility] ([place]) Comment on above: Performed By: #### C BC, ANEU, ADIFF, BMP, PBNP, PRO, GFR, MG ####[address] [address] Monocyte, Absolute 0.2 10 3/mcL Normal 0.1-1.4 [facility] ([place]) Comment on above: Performed By: #### C BC, ANEU, ADIFF, BMP, PBNP, PRO, GFR, MG ####[address] [address] Monocytes/100 WBC (Bld) 2.4 % Normal 2.0-13.0 [facility] ([place]) Comment on above: Performed By: #### C BC, ANEU, ADIFF, BMP, PBNP, PRO, GFR, MG ####[address] [address] Neutrophils/100 WBC (Bld) 91.2 % High 50.0-75.0 [facility] ([place]) Comment on above: Performed By: #### C BC, ANEU, ADIFF, BMP, PBNP, PRO, GFR, MG ####[address] [address] .GFRon 09-24-2023 GFR >60 Normal [facility] ([place]) Comment on above: Result Comment: GFR Population mean for , Non- Americans Ages 20-29 = 116 mL/min/1.73 sq.m. Ages 30-39 = 107 mL/min/1.73 sq.m. Ages 40-49 = 99 mL/min/1.73 sq.m. Ages 50-59 = 93 mL/min/1.73 sq.m. Ages 60-69 = 85 mL/min/1.73 sq.m. Ages 70+ = 75 mL/min/1.73 sq.m.Chronic Kidney Disease: Less than 60 mL/min/1.73 square metersEnd Stage Renal Disease: Less than 15 mL/min/1.73 square meters Performed By: #### C BC, ANEU, ADIFF, BMP, PBNP, PRO, GFR, MG ####[address] [address] GFR Non- 52 ml/min/1.73sqm Normal [facility] ([place]) Comment on above: Result Comment: GFR Population mean for , Non- Americans Ages 20-29 = 116 mL/min/1.73 sq.m. Ages 30-39 = 107 mL/min/1.73 sq.m. Ages 40-49 = 99 mL/min/1.73 sq.m. Ages 50-59 = 93 mL/min/1.73 sq.m. Ages 60-69 = 85 mL/min/1.73 sq.m. Ages 70+ = 75 mL/min/1.73 sq.m.Chronic Kidney Disease: Less than 60 mL/min/1.73 square metersEnd Stage Renal Disease: Less than 15 mL/min/1.73 square meters Performed By: #### C BC, ANEU, ADIFF, BMP, PBNP, PRO, GFR, MG ####[address] [address] .NEUABSon 09-24-2023 Neutrophil, Absolute 9.3 10 3/mcL High 2.3-8.1 [facility] ([place]) Comment on above: Performed By: #### C BC, ANEU, ADIFF, BMP, PBNP, PRO, GFR, MG ####[address] [address] BMPon 09-24-2023 BUN/Creatinine Ratio 21.2 ratio Normal 10.0-22.0 [facility] ([place]) Comment on above: Performed By: #### C BC, ANEU, ADIFF, BMP, PBNP, PRO, GFR, MG ####[address] [address] Calcium [Mass/Vol] 9.2 mg/dL Normal 8.7-10.4 [facility] ([place]) Comment on above: Performed By: #### C BC, ANEU, ADIFF, BMP, PBNP, PRO, GFR, MG ####[address] [address] Chloride [Moles/Vol] 100 mmol/L Normal 98-110 [facility] ([place]) Comment on above: Performed By: #### C BC, ANEU, ADIFF, BMP, PBNP, PRO, GFR, MG ####[address] [address] CO2 [Moles/Vol] 36 mmol/L High 22-32 [facility] ([place]) Comment on above: Performed By: #### C BC, ANEU, ADIFF, BMP, PBNP, PRO, GFR, MG ####[address] [address] Creatinine [Mass/Vol] 1.46 mg/dL High 0.60-1.40 [facility] ([place]) Comment on above: Performed By: #### C BC, ANEU, ADIFF, BMP, PBNP, PRO, GFR, MG ####[address] [address] Electrolyte Balance 3.0 mEq/L Low 4.0-15.0 [facility] ([place]) Comment on above: Performed By: #### C BC, ANEU, ADIFF, BMP, PBNP, PRO, GFR, MG ####[address] [address] Glucose [Mass/Vol] 134 mg/dL High 70-110 [facility] ([place]) Comment on above: Performed By: #### C BC, ANEU, ADIFF, BMP, PBNP, PRO, GFR, MG ####[address] [address] Potassium [Moles/Vol] 4.1 mmol/L Normal 3.5-5.0 [facility] ([place]) Comment on above: Performed By: #### C BC, ANEU, ADIFF, BMP, PBNP, PRO, GFR, MG ####[address] [address] Sodium [Moles/Vol] 139 mmol/L Normal 136-145 [facility] ([place]) Comment on above: Performed By: #### C BC, ANEU, ADIFF, BMP, PBNP, PRO, GFR, MG ####[place] [address] Urea nitrogen [Mass/Vol] 31.0 mg/dL High 8.0-22.0 [facility] ([place]) Comment on above: Performed By: #### C BC, ANEU, ADIFF, BMP, PBNP, PRO, GFR, MG ####[place] [address] CBCon 09-24-2023 Erythrocyte distribution width (RBC) [Ratio] 17.5 % High 11.5-15.5 [facility] ([place]) Comment on above: Performed By: #### C BC, ANEU, ADIFF, BMP, PBNP, PRO, GFR, MG ####[place] [address] Hematocrit (Bld) [Volume fraction] 43.5 % Normal 40.0-52.0 [facility] ([place]) Comment on above: Performed By: #### C BC, ANEU, ADIFF, BMP, PBNP, PRO, GFR, MG ####[place] [address] Hgb 14.4 G/dL Normal 13.0-17.5 [facility] ([place]) Comment on above: Performed By: #### C BC, ANEU, ADIFF, BMP, PBNP, PRO, GFR, MG ####[place] [address] MCH (RBC) [Entitic mass] 32.2 pg Normal 27.0-33.0 [facility] ([place]) Comment on above: Performed By: #### C BC, ANEU, ADIFF, BMP, PBNP, PRO, GFR, MG ####[place] [address] MCHC 33.1 G/dL Normal 32.0-36.0 [facility] ([place]) Comment on above: Performed By: #### C BC, ANEU, ADIFF, BMP, PBNP, PRO, GFR, MG ####[place] [address] MCV (RBC) [Entitic vol] 97.3 fL Normal 81.0-100.0 [facility] ([place]) Comment on above: Performed By: #### C BC, ANEU, ADIFF, BMP, PBNP, PRO, GFR, MG ####[place] [address] Platelet 189 10 3/mcL Normal 150-450 [facility] ([place]) Comment on above: Performed By: #### C BC, ANEU, ADIFF, BMP, PBNP, PRO, GFR, MG ####[place] [address] Platelet mean volume (Bld) [Entitic vol] 8.3 fL Normal 6.4-10.5 [facility] ([place]) Comment on above: Performed By: #### C BC, ANEU, ADIFF, BMP, PBNP, PRO, GFR, MG ####[place] [address] RBC 4.47 10 6/mcL Low 4.50-6.00 [facility] ([place]) Comment on above: Performed By: #### C BC, ANEU, ADIFF, BMP, PBNP, PRO, GFR, MG ####[place] [address] WBC 10.2 10 3/mcL Normal 4.5-10.8 [facility] ([place]) Comment on above: Performed By: #### C BC, ANEU, ADIFF, BMP, PBNP, PRO, GFR, MG ####[place] [address] LABORATORYOrdered By: SYSTEM SYSTEM on 09-24-2023 Basophils (Bld) [#/Vol] 0.0 103/mcL Normal 0.0 - 0.3 10^3/mcL AH Workflow SS Basophils/100 WBC (Bld) 0.2 % Normal 0.0 - 2.5 % AH Workflow SS Calcium [Mass/Vol] 9.2 mg/dL Normal 8.7 - 10. 4 mg/dL AH ADM SS Chloride [Moles/Vol] 100 mmol/L Normal 98 - 11 0 mEq/L AH ADM SS CO2 [Moles/Vol] 36 mmol/L High 22 - 32 mEq/L ADM SS Creatinine [Mass/Vol] 1.46 mg/dL High 0.60 - 1.40 mg/dL ADM SS Electrolyte Balance 3.0 mEq/L Low 4.0 - 15 .0 mEq/L ADM SS Eosinophils (Bld) [#/Vol] 0.0 103/mcL Normal 0.0 - 0.7 10^3/mcL Workflow SS Eosinophils/100 WBC (Bld) 0.1 % Normal 0.0 - 6.0 % Workflow SS Erythrocyte distribution width (RBC) [Ratio] 17.5 % High 11.5 - 15.5 % Workflow SS GFR/1.73 sq M.predicted among blacks MDRD (S/P/Bld) [Vol rate/Area] ml/min/1.73sqm Invalid Interpretation Code [facility] S Comment on above: Interpretive Data: GFR Population mean for , Non- Americans Ages 20-29 = 116 mL/min/1.73 sq.m. Ages 30-39 = 107 mL/min/1.73 sq.m. Ages 40-49 = 99 mL/min/1.73 sq.m. Ages 50-59 = 93 mL/min/1.73 sq.m. Ages 60-69 = 85 mL/min/1.73 sq.m. Ages 70+ = 75 mL/min/1.73 sq.m. Chronic Kidney Disease: Less than 60 mL/min/1.73 square meters End Stage Renal Disease: Less than 15 mL/min/1.73 square meters GFR/1.73 sq M.predicted among non-blacks MDRD (S/P/Bld) [Vol rate/Area] 52 ml/min/1.73sqm Invalid Interpretation Code [facility] Chemistry S Comment on above: Interpretive Data: GFR Population mean for , Non- Americans Ages 20-29 = 116 mL/min/1.73 sq.m. Ages 30-39 = 107 mL/min/1.73 sq.m. Ages 40-49 = 99 mL/min/1.73 sq.m. Ages 50-59 = 93 mL/min/1.73 sq.m. Ages 60-69 = 85 mL/min/1.73 sq.m. Ages 70+ = 75 mL/min/1.73 sq.m. Chronic Kidney Disease: Less than 60 mL/min/1.73 square meters End Stage Renal Disease: Less than 15 mL/min/1.73 square meters Glucose [Mass/Vol] 134 mg/dL High 70 - 110 mg/dL ADM SS Hematocrit (Bld) [Volume fraction] 43.5 % Normal 40.0 - 52.0 % Workflow SS Hemoglobin (Bld) [Mass/Vol] 14.4 G/dL Normal 13.0 - 17.5 G/dL Workflow SS Lymphocytes (Bld) [#/Vol] 0.6 103/mcL Low 0.9 - 4.3 10^3/mcL Workflow SS Lymphocytes/100 WBC (Bld) 6.1 % Low 20.0 - 40.0 % Workflow SS Magnesium [Mass/Vol] 2.3 mg/dL Normal 1.6 - 2 .4 mg/dL ADM SS MCH (RBC) [Entitic mass] 32.2 pg Normal 27.0 - 33.0 pg Workflow SS MCHC 33.1 G/dL Normal 32.0 - 36.0 G/dL Workflow SS MCV (RBC) [Entitic vol] 97.3 fL Normal 81.0 - 100.0 fL Workflow SS Monocytes (Bld) [#/Vol] 0.2 103/mcL Normal 0.1 - 1.4 10^3/mcL Workflow SS Monocytes/100 WBC (Bld) 2.4 % Normal 2.0 - 13.0 % Workflow SS Natriuretic peptide.B prohormone N-Terminal IA [Mass/Vol] 1240 pg/mL High 0 - 450 pg/mL ADM SS Neutrophils (Bld) [#/Vol] 9.3 103/mcL High 2.3 - 8.1 10^3/mcL Workflow SS Neutrophils/100 WBC (Bld) 91.2 % High 50.0 - 75.0 % Workflow SS Platelet mean volume (Bld) [Entitic vol] 8.3 fL Normal 6.4 - 10.5 fL Workflow SS Platelets (Bld) [#/Vol] 189 103/mcL Normal 150 - 450 10^3/mcL Workflow SS Potassium [Moles/Vol] 4.1 mmol/L Normal 3.5 - 5.0 mEq/L ADM SS PT Coag (PPP) [Time] 30.2 s High 9.0 - 1 4.4 seconds [facility] SS Comment on above: Interpretive Data: E ffective 08/28/07, Protime results may be affected by some antibiotics (i.e. Ciprofloxacin, Azithromycin, Bactrim) which may potentiate the action of oral anticoagulants, with further increases in Protime/INR. PT International Ratio 2.6 ratio Invalid Interpretation Code [facility] SS Comment on above: Interpretive Data: T he [place] (CHEST, 1991, 102:[id number]) recommended therapeutic range for oral anticoagulant therapy is: LOW RISK: Prophylaxis of venous thrombosis INR: 2.0-3.0 Treatment of pulmonary embolism 2.0-3.0 Prevention of systemic embolism 2.0-3.0 HIGH RISK: Mechanical prosthetic valves 2.5-3.5 RBC (Bld) [#/Vol] 4.47 106/mcL Low 4.50 - 6.0 0 10^6/mcL Workflow SS Sodium [Moles/Vol] 139 mmol/L Normal 136 - 145 mEq/L AH ADM SS Urea nitrogen [Mass/Vol] 31.0 mg/dL High 8.0 - 22.0 mg/dL ADM SS Urea nitrogen/Creatinine [Mass ratio] 21.2 ratio Normal 10.0 - 22.0 ratio AH ADM SS WBC (Bld) [#/Vol] 10.2 103/mcL Normal 4.5 - 10.8 10^3/mcL Workflow SS MGon 09-24-2023 Magnesium [Mass/Vol] 2.3 mg/dL Normal 1.6-2.4 [facility] ([place]) Comment on above: Performed By: #### C BC, ANEU, ADIFF, BMP, PBNP, PRO, GFR, MG ####[place] [id number] [place] [address] PBNPon 09-24-2023 Natriuretic peptide B (Bld) [Mass/Vol] 1240 pg/mL High 0-450 [facility] ([place]) Comment on above: Performed By: #### C BC, ANEU, ADIFF, BMP, PBNP, PRO, GFR, MG ####[place] [address] [place] [address] PROon 09-24-2023 INR Coag (PPP) [Relative time] 2.6 {INR} Normal [facility] ([place]) Comment on above: Order Comment: order ed secondary to warfarin order Result Comment: The [place] [place] (CHEST, 1992, [id number])recommended therapeutic range for oral anticoagulant therapy is:LOW RISK: Prophylaxis of venous thrombosis INR: 2.0-3.0 Treatment of pulmonary embolism 2.0-3.0 Prevention of systemic embolism 2.0-3.0HIGH RISK: Mechanical prosthetic valves 2.5-3.5 Performed By: #### C BC, ANEU, ADIFF, BMP, PBNP, PRO, GFR, MG ####[address] [address] PT Coag (PPP) [Time] 30.2 s High 9.0-14.4 [facility] ([place]) Comment on above: Order Comment: order ed secondary to warfarin order Result Comment: Effe ctive 08/28/07, Protime results may be affected by some antibiotics (i.e. Ciprofloxacin, Azithromycin, Bactrim) which may potentiate the action of oral anticoagulants, with further increases in Protime/INR. Performed By: #### C BC, ANEU, ADIFF, BMP, PBNP, PRO, GFR, MG ####[place] [address] .Auto Diffon 09-23-2023 Basophil, Absolute 0.0 10 3/mcL Normal 0.0-0.3 [facility]) Comment on above: Performed By: #### A RHONDA, CBC, GFR, MG, ADIFF, BMP, PRO ####[address] [address] Basophils/100 WBC (Bld) 0.6 % Normal 0.0-2.5 [facility] ([place]) Comment on above: Performed By: #### A RHONDA, CBC, GFR, MG, ADIFF, BMP, PRO ####[place] [address] Eosinophil, Absolute 0.8 10 3/mcL High 0.0-0.7 [facility] ([place]) Comment on above: Performed By: #### A RHONDA, CBC, GFR, MG, ADIFF, BMP, PRO ####[address] [address] Eosinophils/100 WBC (Bld) 11.3 % High 0.0-6.0 [facility] ([place]) Comment on above: Performed By: #### A RHONDA, CBC, GFR, MG, ADIFF, BMP, PRO ####[address] [address] Lymphocyte, Absolute 0.8 10 3/mcL Low 0.9-4.3 [facility] ([place]) Comment on above: Performed By: #### A RHONDA, CBC, GFR, MG, ADIFF, BMP, PRO ####[address] [address] Lymphocytes/100 WBC (Bld) 11.2 % Low 20.0-40.0 [facility] ([place]) Comment on above: Performed By: #### A RHONDA, CBC, GFR, MG, ADIFF, BMP, PRO ####[address] [address] Monocyte, Absolute 0.9 10 3/mcL Normal 0.1-1.4 [facility] ([place]) Comment on above: Performed By: #### A RHONDA, CBC, GFR, MG, ADIFF, BMP, PRO ####[address] [address] Monocytes/100 WBC (Bld) 12.6 % Normal 2.0-13.0 [facility] ([place]) Comment on above: Performed By: #### A RHONDA, CBC, GFR, MG, ADIFF, BMP, PRO ####[address] [address] Neutrophils/100 WBC (Bld) 64.3 % Normal 50.0-75.0 [facility] ([place]) Comment on above: Performed By: #### A RHONDA, CBC, GFR, MG, ADIFF, BMP, PRO ####[address] [address] .GFRon 09-23-2023 GFR Non- 52 ml/min/1.73sqm Normal [facility] ([place]) Comment on above: Result Comment: GFR Population mean for , Non- Americans Ages 20-29 = 116 mL/min/1.73 sq.m. Ages 30-39 = 107 mL/min/1.73 sq.m. Ages 40-49 = 99 mL/min/1.73 sq.m. Ages 50-59 = 93 mL/min/1.73 sq.m. Ages 60-69 = 85 mL/min/1.73 sq.m. Ages 70+ = 75 mL/min/1.73 sq.m.Chronic Kidney Disease: Less than 60 mL/min/1.73 square metersEnd Stage Renal Disease: Less than 15 mL/min/1.73 square meters Performed By: #### A RHONDA, CBC, GFR, MG, ADIFF, BMP, PRO ####[address] [address] GFR >60 Normal [facility] ([place]) Comment on above: Result Comment: GFR Population mean for , Non- Americans Ages 20-29 = 116 mL/min/1.73 sq.m. Ages 30-39 = 107 mL/min/1.73 sq.m. Ages 40-49 = 99 mL/min/1.73 sq.m. Ages 50-59 = 93 mL/min/1.73 sq.m. Ages 60-69 = 85 mL/min/1.73 sq.m. Ages 70+ = 75 mL/min/1.73 sq.m.Chronic Kidney Disease: Less than 60 mL/min/1.73 square metersEnd Stage Renal Disease: Less than 15 mL/min/1.73 square meters Performed By: #### A RHONDA, CBC, GFR, MG, ADIFF, BMP, PRO ####[address] [address] .NEUABSon 09-23-2023 Neutrophil, Absolute 4.5 10 3/mcL Normal 2.3-8.1 [facility] ([place]) Comment on above: Performed By: #### A RHONDA, CBC, GFR, MG, ADIFF, BMP, PRO ####[address] [address] BMPon 09-23-2023 BUN/Creatinine Ratio 18.2 ratio Normal 10.0-22.0 [facility] ([place]) Comment on above: Performed By: #### A RHONDA, CBC, GFR, MG, ADIFF, BMP, PRO ####[address] [address] Calcium [Mass/Vol] 8.9 mg/dL Normal 8.7-10.4 [facility] ([place]) Comment on above: Performed By: #### A RHONDA, CBC, GFR, MG, ADIFF, BMP, PRO ####[address] [address] Chloride [Moles/Vol] 96 mmol/L Low 98-110 [facility] ([place]) Comment on above: Performed By: #### A RHONDA, CBC, GFR, MG, ADIFF, BMP, PRO ####[address] [address] CO2 [Moles/Vol] 40 mmol/L Critically abnormal 22-32 [facility] ([place]) Comment on above: Performed By: #### A RHONDA, CBC, GFR, MG, ADIFF, BMP, PRO ####[address] [address] Creatinine [Mass/Vol] 1.48 mg/dL High 0.60-1.40 [facility] ([place]) Comment on above: Performed By: #### A RHONDA, CBC, GFR, MG, ADIFF, BMP, PRO ####[address] [address] Electrolyte Balance 2.0 mEq/L Low 4.0-15.0 [facility] ([place]) Comment on above: Performed By: #### A RHONDA, CBC, GFR, MG, ADIFF, BMP, PRO ####[address] [address] Glucose [Mass/Vol] 107 mg/dL Normal 70-110 [facility] ([place]) Comment on above: Performed By: #### A RHONDA, CBC, GFR, MG, ADIFF, BMP, PRO ####[address] [address] Potassium [Moles/Vol] 3.9 mmol/L Normal 3.5-5.0 [facility] ([place]) Comment on above: Performed By: #### A RHONDA, CBC, GFR, MG, ADIFF, BMP, PRO ####[place] [address] Sodium [Moles/Vol] 138 mmol/L Normal 136-145 [facility] ([place]) Comment on above: Performed By: #### A RHONDA, CBC, GFR, MG, ADIFF, BMP, PRO ####[place] [address] Urea nitrogen [Mass/Vol] 27.0 mg/dL High 8.0-22.0 [facility] ([place]) Comment on above: Performed By: #### A RHONDA, CBC, GFR, MG, ADIFF, BMP, PRO ####[place] [address] CBCon 09-23-2023 Erythrocyte distribution width (RBC) [Ratio] 16.9 % High 11.5-15.5 [facility] ([place] Comment on above: Performed By: #### A RHONDA, CBC, GFR, MG, ADIFF, BMP, PRO ####[place] [address] Hematocrit (Bld) [Volume fraction] 42.9 % Normal 40.0-52.0 [facility] ([place]) Comment on above: Performed By: #### A RHONDA, CBC, GFR, MG, ADIFF, BMP, PRO ####[place] [address] Hgb 14.1 G/dL Normal 13.0-17.5 [facility] ([place] Comment on above: Performed By: #### A RHONDA, CBC, GFR, MG, ADIFF, BMP, PRO ####[place] [address] MCH (RBC) [Entitic mass] 31.6 pg Normal 27.0-33.0 [facility] ([place] Comment on above: Performed By: #### A RHONDA, CBC, GFR, MG, ADIFF, BMP, PRO ####[place] [address] MCHC 33.0 G/dL Normal 32.0-36.0 [facility] ([place] Comment on above: Performed By: #### A RHONDA, CBC, GFR, MG, ADIFF, BMP, PRO ####[place] [address] MCV (RBC) [Entitic vol] 95.9 fL Normal 81.0-100.0 [facility] ([place] Comment on above: Performed By: #### A RHONDA, CBC, GFR, MG, ADIFF, BMP, PRO ####[place] [address] Platelet 175 10 3/mcL Normal 150-450 [facility] ([place] Comment on above: Performed By: #### A RHONDA, CBC, GFR, MG, ADIFF, BMP, PRO ####[place] [address] Platelet mean volume (Bld) [Entitic vol] 7.7 fL Normal 6.4-10.5 [facility] ([place]) Comment on above: Performed By: #### A RHONDA, CBC, GFR, MG, ADIFF, BMP, PRO ####[place] [address] RBC 4.47 10 6/mcL Low 4.50-6.00 [facility] ([place]) Comment on above: Performed By: #### A RHONDA, CBC, GFR, MG, ADIFF, BMP, PRO ####[place] [address] WBC 7.0 10 3/mcL Normal 4.5-10.8 [facility] ([place]) Comment on above: Performed By: #### A RHONDA, CBC, GFR, MG, ADIFF, BMP, PRO ####[place] [address] LABORATORYOrdered By: SYSTEM SYSTEM on 09-23-2023 Basophils (Bld) [#/Vol] 0.0 103/mcL Normal 0.0 - 0.3 10^3/mcL AH Workflow SS Basophils/100 WBC (Bld) 0.6 % Normal 0.0 - 2.5 % AH Workflow SS Calcium [Mass/Vol] 8.9 mg/dL Normal 8.7 - 10. 4 mg/dL AH ADM SS Chloride [Moles/Vol] 96 mmol/L Low 98 - 11 0 mEq/L ADM SS CO2 [Moles/Vol] 40 mmol/L Invalid Interpretation Code 22 - 32 mEq/L ADM SS Creatinine [Mass/Vol] 1.48 mg/dL High 0.60 - 1.40 mg/dL ADM SS Electrolyte Balance 2.0 mEq/L Low 4.0 - 15 .0 mEq/L ADM SS Eosinophils (Bld) [#/Vol] 0.8 103/mcL High 0.0 - 0.7 10^3/mcL Workflow SS Eosinophils/100 WBC (Bld) 11.3 % High 0.0 - 6.0 % Workflow SS Erythrocyte distribution width (RBC) [Ratio] 16.9 % High 11.5 - 15.5 % Workflow SS GFR/1.73 sq M.predicted among blacks MDRD (S/P/Bld) [Vol rate/Area] ml/min/1.73sqm Invalid Interpretation Code [facility] S Comment on above: Interpretive Data: GFR Population mean for , Non- Americans Ages 20-29 = 116 mL/min/1.73 sq.m. Ages 30-39 = 107 mL/min/1.73 sq.m. Ages 40-49 = 99 mL/min/1.73 sq.m. Ages 50-59 = 93 mL/min/1.73 sq.m. Ages 60-69 = 85 mL/min/1.73 sq.m. Ages 70+ = 75 mL/min/1.73 sq.m. Chronic Kidney Disease: Less than 60 mL/min/1.73 square meters End Stage Renal Disease: Less than 15 mL/min/1.73 square meters GFR/1.73 sq M.predicted among non-blacks MDRD (S/P/Bld) [Vol rate/Area] 52 ml/min/1.73sqm Invalid Interpretation Code [facility] S Comment on above: Interpretive Data: GFR Population mean for , Non- Americans Ages 20-29 = 116 mL/min/1.73 sq.m. Ages 30-39 = 107 mL/min/1.73 sq.m. Ages 40-49 = 99 mL/min/1.73 sq.m. Ages 50-59 = 93 mL/min/1.73 sq.m. Ages 60-69 = 85 mL/min/1.73 sq.m. Ages 70+ = 75 mL/min/1.73 sq.m. Chronic Kidney Disease: Less than 60 mL/min/1.73 square meters End Stage Renal Disease: Less than 15 mL/min/1.73 square meters Glucose [Mass/Vol] 107 mg/dL Normal 70 - 110 mg/dL ADM SS Hematocrit (Bld) [Volume fraction] 42.9 % Normal 40.0 - 52.0 % AH Workflow SS Hemoglobin (Bld) [Mass/Vol] 14.1 G/dL Normal 13.0 - 17.5 G/dL AH Workflow SS Lymphocytes (Bld) [#/Vol] 0.8 103/mcL Low 0.9 - 4.3 10^3/mcL AH Workflow SS Lymphocytes/100 WBC (Bld) 11.2 % Low 20.0 - 40.0 % AH Workflow SS Magnesium [Mass/Vol] 2.0 mg/dL Normal 1.6 - 2 .4 mg/dL ADM SS MCH (RBC) [Entitic mass] 31.6 pg Normal 27.0 - 33.0 pg AH Workflow SS MCHC 33.0 G/dL Normal 32.0 - 36.0 G/dL AH Workflow SS MCV (RBC) [Entitic vol] 95.9 fL Normal 81.0 - 100.0 fL AH Workflow SS Monocytes (Bld) [#/Vol] 0.9 103/mcL Normal 0.1 - 1.4 10^3/mcL AH Workflow SS Monocytes/100 WBC (Bld) 12.6 % Normal 2.0 - 13.0 % AH Workflow SS Neutrophils (Bld) [#/Vol] 4.5 103/mcL Normal 2.3 - 8.1 10^3/mcL AH Workflow SS Neutrophils/100 WBC (Bld) 64.3 % Normal 50.0 - 75.0 % AH Workflow SS Platelet mean volume (Bld) [Entitic vol] 7.7 fL Normal 6.4 - 10.5 fL AH Workflow SS Platelets (Bld) [#/Vol] 175 103/mcL Normal 150 - 450 10^3/mcL AH Workflow SS Potassium [Moles/Vol] 3.9 mmol/L Normal 3.5 - 5.0 mEq/L ADM SS PT Coag (PPP) [Time] 26.9 s High 9.0 - 1 4.4 seconds [facility] Comment on above: Interpretive Data: E ffective 08/28/07, Protime results may be affected by some antibiotics (i.e. Ciprofloxacin, Azithromycin, Bactrim) which may potentiate the action of oral anticoagulants, with further increases in Protime/INR. PT International Ratio 2.3 ratio Invalid Interpretation Code [facility] Comment on above: Interpretive Data: T brigitte [employer] (CHEST, 1991, [id number]) recommended therapeutic range for oral anticoagulant therapy is: LOW RISK: Prophylaxis of venous thrombosis INR: 2.0-3.0 Treatment of pulmonary embolism 2.0-3.0 Prevention of systemic embolism 2.0-3.0 HIGH RISK: Mechanical prosthetic valves 2.5-3.5 RBC (Bld) [#/Vol] 4.47 106/mcL Low 4.50 - 6.0 0 10^6/mcL Workflow SS Sodium [Moles/Vol] 138 mmol/L Normal 136 - 145 mEq/L AH ADM SS Urea nitrogen [Mass/Vol] 27.0 mg/dL High 8.0 - 22.0 mg/dL ADM SS Urea nitrogen/Creatinine [Mass ratio] 18.2 ratio Normal 10.0 - 22.0 ratio AH ADM SS WBC (Bld) [#/Vol] 7.0 103/mcL Normal 4.5 - 10.8 10^3/mcL Workflow SS MGon 09-23-2023 Magnesium [Mass/Vol] 2.0 mg/dL Normal 1.6-2.4 [facility] ([place]) Comment on above: Performed By: #### A RHONDA, CBC, GFR, MG, ADIFF, BMP, PRO ####[place] [address] PROon 09-23-2023 INR Coag (PPP) [Relative time] 2.3 {INR} Normal [facility] ([place]) Comment on above: Order Comment: order ed secondary to warfarin order Result Comment: [employer] [place] [employer] (CHEST, 1991, 102:312S-25S)recommended therapeutic range for oral anticoagulant therapy is:LOW RISK: Prophylaxis of venous thrombosis INR: 2.0-3.0 Treatment of pulmonary embolism 2.0-3.0 Prevention of systemic embolism 2.0-3.0HIGH RISK: Mechanical prosthetic valves 2.5-3.5 Performed By: #### A RHONDA, CBC, GFR, MG, ADIFF, BMP, PRO ####[address] [address] PT Coag (PPP) [Time] 26.9 s High 9.0-14.4 [facility] ([place]) Comment on above: Order Comment: order ed secondary to warfarin order Result Comment: Effe ctive 08/28/07, Protime results may be affected by some antibiotics (i.e. Ciprofloxacin, Azithromycin, Bactrim) which may potentiate the action of oral anticoagulants, with further increases in Protime/INR. Performed By: #### A RHONDA, CBC, GFR, MG, ADIFF, BMP, PRO ####[address] [address] .Auto Diffon 09-22-2023 Basophil, Absolute 0.0 10 3/mcL Normal 0.0-0.3 [facility] ([place] Comment on above: Performed By: #### C BC, MG, PRO, ANEU, GFR, ADIFF, BMP ####[place] [address] Basophils/100 WBC (Bld) 0.8 % Normal 0.0-2.5 [facility] ([place]) Comment on above: Performed By: #### C BC, MG, PRO, ANEU, GFR, ADIFF, BMP ####[address] [address] Eosinophil, Absolute 0.6 10 3/mcL Normal 0.0-0.7 [facility] ([place]) Comment on above: Performed By: #### C BC, MG, PRO, ANEU, GFR, ADIFF, BMP ####[place] [address] Eosinophils/100 WBC (Bld) 9.8 % High 0.0-6.0 [facility] ([place] Comment on above: Performed By: #### C BC, MG, PRO, ANEU, GFR, ADIFF, BMP ####[place] [address] Lymphocyte, Absolute 0.7 10 3/mcL Low 0.9-4.3 [facility] ([place]) Comment on above: Performed By: #### C BC, MG, PRO, ANEU, GFR, ADIFF, BMP ####[address] [address] Lymphocytes/100 WBC (Bld) 11.7 % Low 20.0-40.0 [facility] ([place] Comment on above: Performed By: #### C BC, MG, PRO, ANEU, GFR, ADIFF, BMP ####[address] [address] Monocyte, Absolute 0.7 10 3/mcL Normal 0.1-1.4 [facility] ([place]) Comment on above: Performed By: #### C BC, MG, PRO, ANEU, GFR, ADIFF, BMP ####[address] [address] Monocytes/100 WBC (Bld) 12.0 % Normal 2.0-13.0 [facility] ([place]) Comment on above: Performed By: #### C BC, MG, PRO, ANEU, GFR, ADIFF, BMP ####[address] [address] Neutrophils/100 WBC (Bld) 65.7 % Normal 50.0-75.0 [facility] ([place]) Comment on above: Performed By: #### C BC, MG, PRO, ANEU, GFR, ADIFF, BMP ####[address] [address] .GFRon 09-22-2023 GFR >60 Normal [facility] ([place]) Comment on above: Result Comment: GFR Population mean for , Non- Americans Ages 20-29 = 116 mL/min/1.73 sq.m. Ages 30-39 = 107 mL/min/1.73 sq.m. Ages 40-49 = 99 mL/min/1.73 sq.m. Ages 50-59 = 93 mL/min/1.73 sq.m. Ages 60-69 = 85 mL/min/1.73 sq.m. Ages 70+ = 75 mL/min/1.73 sq.m.Chronic Kidney Disease: Less than 60 mL/min/1.73 square metersEnd Stage Renal Disease: Less than 15 mL/min/1.73 square meters Performed By: #### C BC, MG, PRO, ANEU, GFR, ADIFF, BMP ####[place] [address] GFR Non- 51 ml/min/1.73sqm Normal [facility] ([place]) Comment on above: Result Comment: GFR Population mean for , Non- Americans Ages 20-29 = 116 mL/min/1.73 sq.m. Ages 30-39 = 107 mL/min/1.73 sq.m. Ages 40-49 = 99 mL/min/1.73 sq.m. Ages 50-59 = 93 mL/min/1.73 sq.m. Ages 60-69 = 85 mL/min/1.73 sq.m. Ages 70+ = 75 mL/min/1.73 sq.m.Chronic Kidney Disease: Less than 60 mL/min/1.73 square metersEnd Stage Renal Disease: Less than 15 mL/min/1.73 square meters Performed By: #### C BC, MG, PRO, ANEU, GFR, ADIFF, BMP ####[place] [address] .NEUABSon 09-22-2023 Neutrophil, Absolute 4.1 10 3/mcL Normal 2.3-8.1 [facility] ([place]) Comment on above: Performed By: #### C BC, MG, PRO, ANEU, GFR, ADIFF, BMP ####[place] [address] BMPon 09-22-2023 CO2 [Moles/Vol] mmol/L Critically abnormal 22-32 [facility] ([place]) Comment on above: Performed By: #### C BC, MG, PRO, ANEU, GFR, ADIFF, BMP ####[place] [address] Electrolyte Balance Unable to Calculate Normal 4.0-15. 0 [facility] ([place]) Comment on above: Result Comment: Unab le to calculate this test result accurately. Results used to calculate this test are outside the reportable range. Performed By: #### C BC, MG, PRO, ANEU, GFR, ADIFF, BMP ####[address] [address] BUN/Creatinine Ratio 15.4 ratio Normal 10.0-22.0 [facility] ([place] Comment on above: Performed By: #### C BC, MG, PRO, ANEU, GFR, ADIFF, BMP ####[address] [address] Calcium [Mass/Vol] 9.6 mg/dL Normal 8.7-10.4 [facility] ([place]) Comment on above: Performed By: #### C BC, MG, PRO, ANEU, GFR, ADIFF, BMP ####[address] [address] Chloride [Moles/Vol] 94 mmol/L Low 98-110 [facility] ([place]) Comment on above: Performed By: #### C BC, MG, PRO, ANEU, GFR, ADIFF, BMP ####[place] [address] Creatinine [Mass/Vol] 1.49 mg/dL High 0.60-1.40 [facility] ([place]) Comment on above: Performed By: #### C BC, MG, PRO, ANEU, GFR, ADIFF, BMP ####[address] [address] Glucose [Mass/Vol] 100 mg/dL Normal 70-110 [facility] ([place]) Comment on above: Performed By: #### C BC, MG, PRO, ANEU, GFR, ADIFF, BMP ####[address] [address] Potassium [Moles/Vol] 3.8 mmol/L Normal 3.5-5.0 [facility] ([place]) Comment on above: Performed By: #### C BC, MG, PRO, ANEU, GFR, ADIFF, BMP ####[address] [address] Sodium [Moles/Vol] 139 mmol/L Normal 136-145 [facility] ([place]) Comment on above: Performed By: #### C BC, MG, PRO, ANEU, GFR, ADIFF, BMP ####[place] [address] Urea nitrogen [Mass/Vol] 23.0 mg/dL High 8.0-22.0 [facility] ([place]) Comment on above: Performed By: #### C BC, MG, PRO, ANEU, GFR, ADIFF, BMP ####[place] [address] CBCon 09-22-2023 Erythrocyte distribution width (RBC) [Ratio] 16.2 % High 11.5-15.5 [facility] ([place]) Comment on above: Performed By: #### C BC, MG, PRO, ANEU, GFR, ADIFF, BMP ####[place] [address] Hematocrit (Bld) [Volume fraction] 43.5 % Normal 40.0-52.0 [facility] ([place]) Comment on above: Performed By: #### C BC, MG, PRO, ANEU, GFR, ADIFF, BMP ####[place] [address] Hgb 14.2 G/dL Normal 13.0-17.5 [facility] ([place]) Comment on above: Performed By: #### C BC, MG, PRO, ANEU, GFR, ADIFF, BMP ####[place] [address] MCH (RBC) [Entitic mass] 30.8 pg Normal 27.0-33.0 [facility] ([place]) Comment on above: Performed By: #### C BC, MG, PRO, ANEU, GFR, ADIFF, BMP ####[place] [address] MCHC 32.5 G/dL Normal 32.0-36.0 [facility] ([place]) Comment on above: Performed By: #### C BC, MG, PRO, ANEU, GFR, ADIFF, BMP ####[place] [address] MCV (RBC) [Entitic vol] 94.9 fL Normal 81.0-100.0 [facility] ([place]) Comment on above: Performed By: #### C BC, MG, PRO, ANEU, GFR, ADIFF, BMP ####[place] [address] Platelet 180 10 3/mcL Normal 150-450 [facility] ([place]) Comment on above: Performed By: #### C BC, MG, PRO, ANEU, GFR, ADIFF, BMP ####[place] [address] Platelet mean volume (Bld) [Entitic vol] 7.7 fL Normal 6.4-10.5 [facility] ([place]) Comment on above: Performed By: #### C BC, MG, PRO, ANEU, GFR, ADIFF, BMP ####[place] [address] RBC 4.59 10 6/mcL Normal 4.50-6.00 [facility] ([place]) Comment on above: Performed By: #### C BC, MG, PRO, ANEU, GFR, ADIFF, BMP ####[place] [address] WBC 6.2 10 3/mcL Normal 4.5-10.8 [facility] ([place]) Comment on above: Performed By: #### C BC, MG, PRO, ANEU, GFR, ADIFF, BMP ####[place] [address] MGon 09-22-2023 Magnesium [Mass/Vol] 1.7 mg/dL Normal 1.6-2.4 [facility] ([place]) Comment on above: Performed By: #### C BC, MG, PRO, ANEU, GFR, ADIFF, BMP ####[place] [address] PROon 09-22-2023 INR Coag (PPP) [Relative time] 2.1 {INR} Normal [facility] ([place]) Comment on above: Order Comment: order ed secondary to warfarin order Result Comment: [employer] [place] [employer] (CHEST, 1992, 102:312S-25S)recommended therapeutic range for oral anticoagulant therapy is:LOW RISK: Prophylaxis of venous thrombosis INR: 2.0-3.0 Treatment of pulmonary embolism 2.0-3.0 Prevention of systemic embolism 2.0-3.0HIGH RISK: Mechanical prosthetic valves 2.5-3.5 Performed By: #### C BC, MG, PRO, ANEU, GFR, ADIFF, BMP ####[address] [address] PT Coag (PPP) [Time] 24.1 s High 9.0-14.4 [facility] ([place]) Comment on above: Order Comment: order ed secondary to warfarin order Result Comment: Effe ctive 08/28/07, Protime results may be affected by some antibiotics (i.e. Ciprofloxacin, Azithromycin, Bactrim) which may potentiate the action of oral anticoagulants, with further increases in Protime/INR. Performed By: #### C BC, MG, PRO, ANEU, GFR, ADIFF, BMP ####[place] [address] .Auto Diffon 09-21-2023 Basophil, Absolute 0.1 10 3/mcL Normal 0.0-0.3 [facility] ([place] Comment on above: Performed By: #### C BC, BMP, GFR, MG, PRO, ANEU, ADIFF ####[place] [address] Basophils/100 WBC (Bld) 0.9 % Normal 0.0-2.5 [facility] ([place]) Comment on above: Performed By: #### C BC, BMP, GFR, MG, PRO, ANEU, ADIFF ####[place] [address] Eosinophil, Absolute 0.5 10 3/mcL Normal 0.0-0.7 [facility] ([place] Comment on above: Performed By: #### C BC, BMP, GFR, MG, PRO, ANEU, ADIFF ####[place] [address] Eosinophils/100 WBC (Bld) 8.4 % High 0.0-6.0 [facility] ([place]) Comment on above: Performed By: #### C BC, BMP, GFR, MG, PRO, ANEU, ADIFF ####[address] [address] Lymphocyte, Absolute 0.7 10 3/mcL Low 0.9-4.3 [facility] ([place] Comment on above: Performed By: #### C BC, BMP, GFR, MG, PRO, ANEU, ADIFF ####[address] [address] Lymphocytes/100 WBC (Bld) 11.5 % Low 20.0-40.0 [facility] ([place]) Comment on above: Performed By: #### C BC, BMP, GFR, MG, PRO, ANEU, ADIFF ####[address] [address] Monocyte, Absolute 0.8 10 3/mcL Normal 0.1-1.4 [facility] ([place]) Comment on above: Performed By: #### C BC, BMP, GFR, MG, PRO, ANEU, ADIFF ####[address] [address] Monocytes/100 WBC (Bld) 12.7 % Normal 2.0-13.0 [facility] ([place] Comment on above: Performed By: #### C BC, BMP, GFR, MG, PRO, ANEU, ADIFF ####[address] [address] Neutrophils/100 WBC (Bld) 66.5 % Normal 50.0-75.0 [facility] ([place]) Comment on above: Performed By: #### C BC, BMP, GFR, MG, PRO, ANEU, ADIFF ####[address] [address] .GFRon 09-21-2023 GFR Non- 54 ml/min/1.73sqm Normal [facility] ([place]) Comment on above: Result Comment: GFR Population mean for , Non- Americans Ages 20-29 = 116 mL/min/1.73 sq.m. Ages 30-39 = 107 mL/min/1.73 sq.m. Ages 40-49 = 99 mL/min/1.73 sq.m. Ages 50-59 = 93 mL/min/1.73 sq.m. Ages 60-69 = 85 mL/min/1.73 sq.m. Ages 70+ = 75 mL/min/1.73 sq.m.Chronic Kidney Disease: Less than 60 mL/min/1.73 square metersEnd Stage Renal Disease: Less than 15 mL/min/1.73 square meters Performed By: #### C BC, BMP, GFR, MG, PRO, ANEU, ADIFF ####[address] [address] GFR >60 Normal [facility] ([place]) Comment on above: Result Comment: GFR Population mean for , Non- Americans Ages 20-29 = 116 mL/min/1.73 sq.m. Ages 30-39 = 107 mL/min/1.73 sq.m. Ages 40-49 = 99 mL/min/1.73 sq.m. Ages 50-59 = 93 mL/min/1.73 sq.m. Ages 60-69 = 85 mL/min/1.73 sq.m. Ages 70+ = 75 mL/min/1.73 sq.m.Chronic Kidney Disease: Less than 60 mL/min/1.73 square metersEnd Stage Renal Disease: Less than 15 mL/min/1.73 square meters Performed By: #### C BC, BMP, GFR, MG, PRO, ANEU, ADIFF ####[address] [address] .NEUABSon 09-21-2023 Neutrophil, Absolute 4.1 10 3/mcL Normal 2.3-8.1 [facility] ([place] Comment on above: Performed By: #### C BC, BMP, GFR, MG, PRO, ANEU, ADIFF ####[address] [address] BGon 09-21-2023 Base excess Calc (Bld) [Moles/Vol] 14.7 mmol/L Normal [facility] ([place]) Comment on above: Performed By: #### B G ####[address] [address] CO2 [Moles/Vol] 41.2 mmol/L Critically abnormal 22.0-30.0 [facility] ([place]) Comment on above: Performed By: #### B G ####[address] [address] HCO3 (Bld) [Moles/Vol] 39.7 mmol/L High 21.0-29.0 [facility] ([place]) Comment on above: Performed By: #### B G ####[address] [address] Oxygen (Bld) [Partial pressure] 101.6 mm[Hg] Normal 74.0-108.0 [facility] ([place] Comment on above: Performed By: #### B G ####[place] [address] Oxygen saturation in Blood 98.1 % High 92.0-96.0 [facility] ([place] Comment on above: Performed By: #### B G ####[place] [address] pCO2 49.1 mmHg High 32.0-46.0 [facility] ([place]) Comment on above: Performed By: #### B G ####[place] [address] pH (Bld) 7.526 [pH] High 7.380-7.460 [facility] ([place]) Comment on above: Performed By: #### B G ####[place] [address] BMPon 09-21-2023 CO2 [Moles/Vol] mmol/L Critically abnormal 22-32 [facility] ([place] Comment on above: Performed By: #### C BC, BMP, GFR, MG, PRO, ANEU, ADIFF ####[place] [address] Electrolyte Balance Unable to Calculate Normal 4.0-15. 0 [facility] ([place]) Comment on above: Result Comment: Unab le to calculate this test result accurately. Results used to calculate this test are outside the reportable range. Performed By: #### C BC, BMP, GFR, MG, PRO, ANEU, ADIFF ####[place] [address] BUN/Creatinine Ratio 14.0 ratio Normal 10.0-22.0 [facility] ([place] Comment on above: Performed By: #### C BC, BMP, GFR, MG, PRO, ANEU, ADIFF ####[address] [address] Calcium [Mass/Vol] 9.7 mg/dL Normal 8.7-10.4 [facility] ([place] Comment on above: Performed By: #### C BC, BMP, GFR, MG, PRO, ANEU, ADIFF ####[address] [address] Chloride [Moles/Vol] 94 mmol/L Low 98-110 [facility] ([place] Comment on above: Performed By: #### C BC, BMP, GFR, MG, PRO, ANEU, ADIFF ####[address] [address] Creatinine [Mass/Vol] 1.43 mg/dL High 0.60-1.40 [facility] ([place]) Comment on above: Performed By: #### C BC, BMP, GFR, MG, PRO, ANEU, ADIFF ####[address] [address] Glucose [Mass/Vol] 101 mg/dL Normal 70-110 [facility] ([place] Comment on above: Performed By: #### C BC, BMP, GFR, MG, PRO, ANEU, ADIFF ####[address] [address] Potassium [Moles/Vol] 4.1 mmol/L Normal 3.5-5.0 [facility] ([place]) Comment on above: Performed By: #### C BC, BMP, GFR, MG, PRO, ANEU, ADIFF ####[address] [address] Sodium [Moles/Vol] 141 mmol/L Normal 136-145 [facility] ([place]) Comment on above: Performed By: #### C BC, BMP, GFR, MG, PRO, ANEU, ADIFF ####[address] [address] Urea nitrogen [Mass/Vol] 20.0 mg/dL Normal 8.0-22.0 [facility] ([place] Comment on above: Performed By: #### C BC, BMP, GFR, MG, PRO, ANEU, ADIFF ####[place] [address] CBCon 09-21-2023 Erythrocyte distribution width (RBC) [Ratio] 16.2 % High 11.5-15.5 [facility] ([place]) Comment on above: Performed By: #### C BC, BMP, GFR, MG, PRO, ANEU, ADIFF ####[place] [address] Hematocrit (Bld) [Volume fraction] 42.3 % Normal 40.0-52.0 [facility] ([place] Comment on above: Performed By: #### C BC, BMP, GFR, MG, PRO, ANEU, ADIFF ####[place] [address] Hgb 13.8 G/dL Normal 13.0-17.5 [facility] ([place]) Comment on above: Performed By: #### C BC, BMP, GFR, MG, PRO, ANEU, ADIFF ####[place] [address] MCH (RBC) [Entitic mass] 30.6 pg Normal 27.0-33.0 [facility] ([place] Comment on above: Performed By: #### C BC, BMP, GFR, MG, PRO, ANEU, ADIFF ####[place] [address] MCHC 32.6 G/dL Normal 32.0-36.0 [facility] ([place] Comment on above: Performed By: #### C BC, BMP, GFR, MG, PRO, ANEU, ADIFF ####[place] [address] MCV (RBC) [Entitic vol] 93.8 fL Normal 81.0-100.0 [facility] ([place] Comment on above: Performed By: #### C BC, BMP, GFR, MG, PRO, ANEU, ADIFF ####[place] [address] Platelet 199 10 3/mcL Normal 150-450 [facility] ([place]) Comment on above: Performed By: #### C BC, BMP, GFR, MG, PRO, ANEU, ADIFF ####[place] [address] Platelet mean volume (Bld) [Entitic vol] 7.6 fL Normal 6.4-10.5 [facility] ([place]) Comment on above: Performed By: #### C BC, BMP, GFR, MG, PRO, ANEU, ADIFF ####[place] [address] RBC 4.51 10 6/mcL Normal 4.50-6.00 [facility] ([place] Comment on above: Performed By: #### C BC, BMP, GFR, MG, PRO, ANEU, ADIFF ####[place] [address] WBC 6.1 10 3/mcL Normal 4.5-10.8 [facility] ([place]) Comment on above: Performed By: #### C BC, BMP, GFR, MG, PRO, ANEU, ADIFF ####[place] [address] CRURon 09-21-2023 U Creatinine 11.1 mg/dL Normal [facility] ([place]) Comment on above: Performed By: #### N AUR, CRUR ####[place] [address] LABORATORYOrdered By: SYSTEM SYSTEM on 09-21-2023 Uric Acid Lvl 9.5 mg/dL High 3.7 - 9.2 mg/dL ADM SS Comment on above: Interpretive Data: * *Note - New Reference Range in effect 19 LABORATORYOrdered By: Tim Lee on 09-21-2023 Creatinine (U) [Mass/Vol] 11.1 mg/dL Invalid Interpretation Code ADM SS Sodium (U) [Moles/Vol] 134 mmol/L Invalid Interpretation Code ADM SS LABORATORYOrdered By: Laney Andersen on 09-21-2023 Base Excess 14.7 mmol/L Invalid Interpretation Code Main Rapid Comm SS CO2 [Moles/Vol] 41.2 mmol/L Invalid Interpretation Code 22.0 - 30.0 mmol/L AH Main Rapid Comm SS HCO3 (Bld) [Moles/Vol] 39.7 mmol/L High 21.0 - 29.0 mmol/L AH Main Rapid Comm SS Oxygen (Bld) [Partial pressure] 101.6 mm[Hg] Normal 74.0 - 108.0 mm Hg AH Main Rapid Comm SS pCO2 49.1 mm[Hg] High 32.0 - 46.0 mm Hg AH Main Rapid Comm SS pH (Bld) 7.526 [pH] High 7.380 - 7.460 AH Main Rapid Comm SS LABORATORYOrdered By: Sussy Samaniego on 09-21-2023 Glucose [Mass/Vol] 107 mg/dL Normal 70 - 110 mg/dL [facility] MGon 09-21-2023 Magnesium [Mass/Vol] 1.7 mg/dL Normal 1.6-2.4 [facility]) Comment on above: Performed By: #### C BC, BMP, GFR, MG, PRO, ANEU, ADIFF ####[place] [address] NAURon 09-21-2023 Sodium [Moles/Vol] 134 mmol/L Normal [facility] ([place]) Comment on above: Performed By: #### N SINGH TAVERA ####[place] [address] PROon 09-21-2023 INR Coag (PPP) [Relative time] 2.2 {INR} Normal [facility]) Comment on above: Order Comment: order ed secondary to warfarin order Result Comment: [employer] [place] [place] (CHEST, 1992, 102:312S-25S)recommended therapeutic range for oral anticoagulant therapy is:LOW RISK: Prophylaxis of venous thrombosis INR: 2.0-3.0 Treatment of pulmonary embolism 2.0-3.0 Prevention of systemic embolism 2.0-3.0HIGH RISK: Mechanical prosthetic valves 2.5-3.5 Performed By: #### P RO ####[place] [address] Performed By: #### C BC, BMP, GFR, MG, PRO, ANEU, ADIFF ####[place] [address] PT Coag (PPP) [Time] 25.3 s High 9.0-14.4 [facility] ([place]) Comment on above: Order Comment: order ed secondary to warfarin order Result Comment: Effe ctive 08/28/07, Protime results may be affected by some antibiotics (i.e. Ciprofloxacin, Azithromycin, Bactrim) which may potentiate the action of oral anticoagulants, with further increases in Protime/INR. Performed By: #### P RO ####[place] [address] PT Coag (PPP) [Time] 25.1 s High 9.0-14.4 [facility] ([place]) Comment on above: Result Comment: Effe ctive 08/28/07, Protime results may be affected by some antibiotics (i.e. Ciprofloxacin, Azithromycin, Bactrim) which may potentiate the action of oral anticoagulants, with further increases in Protime/INR. Performed By: #### C BC, BMP, GFR, MG, PRO, ANEU, ADIFF ####[place] [address] URICon 09-21-2023 Uric Acid Lvl 9.5 mg/dL High 3.7-9.2 [facility] ([place]) Comment on above: Result Comment: No te - New Reference Range in effect 19 Performed By: #### U ERENDIRA ####[place] [address] .Auto Diffon 09-20-2023 Basophil, Absolute 0.0 10 3/mcL Normal 0.0-0.3 [facility] ([place]) Comment on above: Performed By: #### C BC, ADIFF, ANEU ####[place] [address] Basophils/100 WBC (Bld) 0.6 % Normal 0.0-2.5 [facility] ([place]) Comment on above: Performed By: #### C BC, ADIFF, ANEU ####[id number] [place] [address] Eosinophil, Absolute 0.5 10 3/mcL Normal 0.0-0.7 [facility] ([place]) Comment on above: Performed By: #### ELLI MOODY, ANEU ####[address] [address] Eosinophils/100 WBC (Bld) 7.4 % High 0.0-6.0 [facility] ([place]) Comment on above: Performed By: #### ELLI MOODY, ANEU ####[address] [address] Lymphocyte, Absolute 0.7 10 3/mcL Low 0.9-4.3 [facility] ([place]) Comment on above: Performed By: #### ELLI MOODY, ANEU ####[address] [address] Lymphocytes/100 WBC (Bld) 11.2 % Low 20.0-40.0 [facility] ([place]) Comment on above: Performed By: #### ELLI MOODY, ANEU ####[address] [address] Monocyte, Absolute 0.7 10 3/mcL Normal 0.1-1.4 [facility] ([place]) Comment on above: Performed By: #### ELLI MOODY, ANEU ####[address] [address] Monocytes/100 WBC (Bld) 11.3 % Normal 2.0-13.0 [facility] ([place]) Comment on above: Performed By: #### C ELLI KAMINSKI, ANEU ####[address] [address] Neutrophils/100 WBC (Bld) 69.5 % Normal 50.0-75.0 [facility] ([place]) Comment on above: Performed By: #### ELLI MOODY, ANEU ####[address] [address] Basophil, Absolute 0.1 10 3/mcL Normal 0.0-0.3 [facility] ([place]) Comment on above: Performed By: #### M GKATIE, GFR, CBC, BMP, ADIFF ####[address] [address] Basophils/100 WBC (Bld) 1.0 % Normal 0.0-2.5 [facility] ([place]) Comment on above: Performed By: #### M G, ANEU, GFR, CBC, BMP, ADIFF ####[address] [address] Eosinophil, Absolute 0.4 10 3/mcL Normal 0.0-0.7 [facility] ([place]) Comment on above: Performed By: #### M G, ANEU, GFR, CBC, BMP, ADIFF ####[address] [address] Eosinophils/100 WBC (Bld) 7.8 % High 0.0-6.0 [facility] ([place]) Comment on above: Performed By: #### M G, ANEU, GFR, CBC, BMP, ADIFF ####[address] [address] Lymphocyte, Absolute 0.7 10 3/mcL Low 0.9-4.3 [facility] ([place]) Comment on above: Performed By: #### M G, ANEU, GFR, CBC, BMP, ADIFF ####[address] [address] Lymphocytes/100 WBC (Bld) 12.6 % Low 20.0-40.0 [facility] ([place]) Comment on above: Performed By: #### M G, ANEU, GFR, CBC, BMP, ADIFF ####[address] [address] Monocyte, Absolute 0.7 10 3/mcL Normal 0.1-1.4 [facility] ([place]) Comment on above: Performed By: #### M G, ANEU, GFR, CBC, BMP, ADIFF ####[address] [address] Monocytes/100 WBC (Bld) 12.0 % Normal 2.0-13.0 [facility] ([place]) Comment on above: Performed By: #### M G, ANEU, GFR, CBC, BMP, ADIFF ####[address] [address] Neutrophils/100 WBC (Bld) 66.6 % Normal 50.0-75.0 [facility] ([place]) Comment on above: Performed By: #### M G, ANEU, GFR, CBC, BMP, ADIFF ####[address] [address] .GFRon 09-20-2023 GFR Non- >60 Normal [facility] ([place]) Comment on above: Result Comment: GFR Population mean for , Non- Americans Ages 20-29 = 116 mL/min/1.73 sq.m. Ages 30-39 = 107 mL/min/1.73 sq.m. Ages 40-49 = 99 mL/min/1.73 sq.m. Ages 50-59 = 93 mL/min/1.73 sq.m. Ages 60-69 = 85 mL/min/1.73 sq.m. Ages 70+ = 75 mL/min/1.73 sq.m.Chronic Kidney Disease: Less than 60 mL/min/1.73 square metersEnd Stage Renal Disease: Less than 15 mL/min/1.73 square meters Performed By: #### M G, ANEU, GFR, CBC, BMP, ADIFF ####[address] [address] GFR >60 Normal [facility] ([place]) Comment on above: Result Comment: GFR Population mean for , Non- Americans Ages 20-29 = 116 mL/min/1.73 sq.m. Ages 30-39 = 107 mL/min/1.73 sq.m. Ages 40-49 = 99 mL/min/1.73 sq.m. Ages 50-59 = 93 mL/min/1.73 sq.m. Ages 60-69 = 85 mL/min/1.73 sq.m. Ages 70+ = 75 mL/min/1.73 sq.m.Chronic Kidney Disease: Less than 60 mL/min/1.73 square metersEnd Stage Renal Disease: Less than 15 mL/min/1.73 square meters Performed By: #### M G, ANEU, GFR, CBC, BMP, ADIFF ####[address] [address] .NEUABSon 09-20-2023 Neutrophil, Absolute 4.6 10 3/mcL Normal 2.3-8.1 [facility] ([place]) Comment on above: Performed By: #### C BC, ADIFF, ANEU ####[place] [address] Neutrophil, Absolute 3.8 10 3/mcL Normal 2.3-8.1 [facility] ([place] Comment on above: Performed By: #### M G, ANEU, GFR, CBC, BMP, ADIFF ####[place] [address] BMPon 09-20-2023 CO2 [Moles/Vol] mmol/L Critically abnormal 22-32 [facility] ([place]) Comment on above: Performed By: #### M G, ANEU, GFR, CBC, BMP, ADIFF ####[place] [address] Electrolyte Balance Unable to Calculate Normal 4.0-15. 0 [facility] ([place]) Comment on above: Result Comment: Unab le to calculate this test result accurately. Results used to calculate this test are outside the reportable range. Performed By: #### M G, ANEU, GFR, CBC, BMP, ADIFF ####[place] [address] BUN/Creatinine Ratio 15.9 ratio Normal 10.0-22.0 [facility] ([place] Comment on above: Performed By: #### M G, ANEU, GFR, CBC, BMP, ADIFF ####[place] [address] Calcium [Mass/Vol] 9.2 mg/dL Normal 8.7-10.4 [facility] ([place]) Comment on above: Performed By: #### M G, ANEU, GFR, CBC, BMP, ADIFF ####[place] [address] Chloride [Moles/Vol] 96 mmol/L Low 98-110 [facility] ([place] Comment on above: Performed By: #### M G, ANEU, GFR, CBC, BMP, ADIFF ####[address] [address] Creatinine [Mass/Vol] 1.26 mg/dL Normal 0.60-1.40 [facility] ([place]) Comment on above: Performed By: #### M G, ANEU, GFR, CBC, BMP, ADIFF ####[address] [address] Glucose [Mass/Vol] 97 mg/dL Normal 70-110 [facility] ([place] Comment on above: Performed By: #### M G, ANEU, GFR, CBC, BMP, ADIFF ####[address] [address] Potassium [Moles/Vol] 4.0 mmol/L Normal 3.5-5.0 [facility] ([place]) Comment on above: Performed By: #### M G, ANEU, GFR, CBC, BMP, ADIFF ####[place] [address] Sodium [Moles/Vol] 140 mmol/L Normal 136-145 [facility] ([place] Comment on above: Performed By: #### M G, ANEU, GFR, CBC, BMP, ADIFF ####[place] [address] Urea nitrogen [Mass/Vol] 20.0 mg/dL Normal 8.0-22.0 [facility] ([place] Comment on above: Performed By: #### M G, ANEU, GFR, CBC, BMP, ADIFF ####[address] [address] CBCon 09-20-2023 Erythrocyte distribution width (RBC) [Ratio] 16.3 % High 11.5-15.5 [facility] ([place] Comment on above: Order Comment: order ed secondary to warfarin order Performed By: #### C ELLI KAMINSKI, ANEU ####[place] [address] Hematocrit (Bld) [Volume fraction] 41.0 % Normal 40.0-52.0 [facility] ([place] Comment on above: Order Comment: order ed secondary to warfarin order Performed By: #### C ELLI KAMINSKI, ANEU ####[place] [address] Hgb 13.3 G/dL Normal 13.0-17.5 [facility] ([place] Comment on above: Order Comment: order ed secondary to warfarin order Performed By: #### C ELLI KAMINSKI, ANEU ####[place] [address] MCH (RBC) [Entitic mass] 30.4 pg Normal 27.0-33.0 [facility] ([place] Comment on above: Order Comment: order ed secondary to warfarin order Performed By: #### C ELLI KAMINSKI, ANEU ####[place] [address] MCHC 32.3 G/dL Normal 32.0-36.0 [facility] ([place] Comment on above: Order Comment: order ed secondary to warfarin order Performed By: #### C ELLI KAMINSKI, ANEU ####[place] [address] MCV (RBC) [Entitic vol] 93.9 fL Normal 81.0-100.0 [facility] ([place] Comment on above: Order Comment: order ed secondary to warfarin order Performed By: #### C ELLI KAMINSKI, ANEU ####[place] [address] Platelet 190 10 3/mcL Normal 150-450 [facility] ([place] Comment on above: Order Comment: order ed secondary to warfarin order Performed By: #### C ELLI KAMINSKI, ANEU ####[place] [address] Platelet mean volume (Bld) [Entitic vol] 7.4 fL Normal 6.4-10.5 [facility] ([place] Comment on above: Order Comment: order ed secondary to warfarin order Performed By: #### C ELLI KAMINSKI, ANEU ####[place] [address] RBC 4.37 10 6/mcL Low 4.50-6.00 [facility] ([place] Comment on above: Order Comment: order ed secondary to warfarin order Performed By: #### C SONYA KAMINSKIIFF, ANEU ####[place] [address] WBC 6.6 10 3/mcL Normal 4.5-10.8 [facility] ([place] Comment on above: Order Comment: order ed secondary to warfarin order Performed By: #### C BC, ADIFF, ANEU ####[place] [address] Erythrocyte distribution width (RBC) [Ratio] 16.2 % High 11.5-15.5 [facility] ([place] Comment on above: Performed By: #### M G, ANEU, GFR, CBC, BMP, ADIFF ####[place] [address] Hematocrit (Bld) [Volume fraction] 41.6 % Normal 40.0-52.0 [facility] ([place] Comment on above: Performed By: #### M G, ANEU, GFR, CBC, BMP, ADIFF ####[place] [address] Hgb 13.6 G/dL Normal 13.0-17.5 [facility] ([place] Comment on above: Performed By: #### M G, ANEU, GFR, CBC, BMP, ADIFF ####[place] [address] MCH (RBC) [Entitic mass] 30.9 pg Normal 27.0-33.0 [facility] ([place] Comment on above: Performed By: #### M G, ANEU, GFR, CBC, BMP, ADIFF ####[place] [address] MCHC 32.7 G/dL Normal 32.0-36.0 [facility] ([place] Comment on above: Performed By: #### M G, ANEU, GFR, CBC, BMP, ADIFF ####[place] [address] MCV (RBC) [Entitic vol] 94.6 fL Normal 81.0-100.0 [facility] ([place] Comment on above: Performed By: #### M G, ANEU, GFR, CBC, BMP, ADIFF ####[address] [address] Platelet 212 10 3/mcL Normal 150-450 [facility] ([place] Comment on above: Performed By: #### M G, ANEU, GFR, CBC, BMP, ADIFF ####[address] [address] Platelet mean volume (Bld) [Entitic vol] 7.3 fL Normal 6.4-10.5 [facility] ([place]) Comment on above: Performed By: #### M G, ANEU, GFR, CBC, BMP, ADIFF ####[place] [address] RBC 4.40 10 6/mcL Low 4.50-6.00 [facility] ([place] Comment on above: Performed By: #### M G, ANEU, GFR, CBC, BMP, ADIFF ####[place] [address] WBC 5.8 10 3/mcL Normal 4.5-10.8 [facility] ([place]) Comment on above: Performed By: #### M G, ANEU, GFR, CBC, BMP, ADIFF ####[place] [address] MGon 09-20-2023 Magnesium [Mass/Vol] 2.0 mg/dL Normal 1.6-2.4 [facility] ([place] Comment on above: Performed By: #### M G, ANEU, GFR, CBC, BMP, ADIFF ####[place] [address] PROon 09-20-2023 INR Coag (PPP) [Relative time] 2.3 {INR} Normal [facility] ([place]) Comment on above: Result Comment: The [place] [employer] (CHEST, 1992, 102:312S-25S)recommended therapeutic range for oral anticoagulant therapy is:LOW RISK: Prophylaxis of venous thrombosis INR: 2.0-3.0 Treatment of pulmonary embolism 2.0-3.0 Prevention of systemic embolism 2.0-3.0HIGH RISK: Mechanical prosthetic valves 2.5-3.5 Performed By: #### P RO ####[address] [address] PT Coag (PPP) [Time] 26.6 s High 9.0-14.4 [facility] ([place]) Comment on above: Result Comment: Effe ctive 08/28/07, Protime results may be affected by some antibiotics (i.e. Ciprofloxacin, Azithromycin, Bactrim) which may potentiate the action of oral anticoagulants, with further increases in Protime/INR. Performed By: #### P RO ####[place] [address] .Auto Diffon 09-19-2023 Basophil, Absolute 0.1 10 3/mcL Normal 0.0-0.3 [facility] ([place]) Comment on above: Performed By: #### G FR, MG, CBC, BMP, ANEU, ADIFF ####[place] [address] Basophils/100 WBC (Bld) 1.0 % Normal 0.0-2.5 [facility] ([place] Comment on above: Performed By: #### G FR, MG, CBC, BMP, ANEU, ADIFF ####[address] [address] Eosinophil, Absolute 0.4 10 3/mcL Normal 0.0-0.7 [facility] ([place] Comment on above: Performed By: #### G FR, MG, CBC, BMP, ANEU, ADIFF ####[address] [address] Eosinophils/100 WBC (Bld) 7.3 % High 0.0-6.0 [facility] ([place] Comment on above: Performed By: #### G FR, MG, CBC, BMP, ANEU, ADIFF ####[address] [address] Lymphocyte, Absolute 0.7 10 3/mcL Low 0.9-4.3 [facility] ([place] Comment on above: Performed By: #### G FR, MG, CBC, BMP, ANEU, ADIFF ####[address] [address] Lymphocytes/100 WBC (Bld) 11.7 % Low 20.0-40.0 [facility] ([place]) Comment on above: Performed By: #### G FR, MG, CBC, BMP, ANEU, ADIFF ####[place] [address] [address] [place] [address] Monocyte, Absolute 0.5 10 3/mcL Normal 0.1-1.4 [facility] ([place] Comment on above: Performed By: #### G FR, MG, CBC, BMP, ANEU, ADIFF ####[address] [address] Monocytes/100 WBC (Bld) 9.3 % Normal 2.0-13.0 [facility] ([place]) Comment on above: Performed By: #### G FR, MG, CBC, BMP, ANEU, ADIFF ####[address] [address] Neutrophils/100 WBC (Bld) 70.7 % Normal 50.0-75.0 [facility] ([place] Comment on above: Performed By: #### G FR, MG, CBC, BMP, ANEU, ADIFF ####[address] [address] .GFRon 09-19-2023 GFR >60 Normal [facility] ([place] Comment on above: Result Comment: GFR Population mean for , Non- Americans Ages 20-29 = 116 mL/min/1.73 sq.m. Ages 30-39 = 107 mL/min/1.73 sq.m. Ages 40-49 = 99 mL/min/1.73 sq.m. Ages 50-59 = 93 mL/min/1.73 sq.m. Ages 60-69 = 85 mL/min/1.73 sq.m. Ages 70+ = 75 mL/min/1.73 sq.m.Chronic Kidney Disease: Less than 60 mL/min/1.73 square metersEnd Stage Renal Disease: Less than 15 mL/min/1.73 square meters Performed By: #### M G, GFR, BMP ####[address] [address] GFR Non- >60 Normal [facility] ([place] Comment on above: Result Comment: GFR Population mean for , Non- Americans Ages 20-29 = 116 mL/min/1.73 sq.m. Ages 30-39 = 107 mL/min/1.73 sq.m. Ages 40-49 = 99 mL/min/1.73 sq.m. Ages 50-59 = 93 mL/min/1.73 sq.m. Ages 60-69 = 85 mL/min/1.73 sq.m. Ages 70+ = 75 mL/min/1.73 sq.m.Chronic Kidney Disease: Less than 60 mL/min/1.73 square metersEnd Stage Renal Disease: Less than 15 mL/min/1.73 square meters Performed By: #### M G, GFR, BMP ####[address] [address] GFR Non- >60 Normal [facility] ([place] Comment on above: Result Comment: GFR Population mean for , Non- Americans Ages 20-29 = 116 mL/min/1.73 sq.m. Ages 30-39 = 107 mL/min/1.73 sq.m. Ages 40-49 = 99 mL/min/1.73 sq.m. Ages 50-59 = 93 mL/min/1.73 sq.m. Ages 60-69 = 85 mL/min/1.73 sq.m. Ages 70+ = 75 mL/min/1.73 sq.m.Chronic Kidney Disease: Less than 60 mL/min/1.73 square metersEnd Stage Renal Disease: Less than 15 mL/min/1.73 square meters Performed By: #### G FR, MG, CBC, BMP, ANEU, ADIFF ####[address] [address] GFR >60 Normal [facility] ([place] Comment on above: Result Comment: GFR Population mean for , Non- Americans Ages 20-29 = 116 mL/min/1.73 sq.m. Ages 30-39 = 107 mL/min/1.73 sq.m. Ages 40-49 = 99 mL/min/1.73 sq.m. Ages 50-59 = 93 mL/min/1.73 sq.m. Ages 60-69 = 85 mL/min/1.73 sq.m. Ages 70+ = 75 mL/min/1.73 sq.m.Chronic Kidney Disease: Less than 60 mL/min/1.73 square metersEnd Stage Renal Disease: Less than 15 mL/min/1.73 square meters Performed By: #### G FR, MG, CBC, BMP, ANEU, ADIFF ####[address] [address] .NEUABSon 09-19-2023 Neutrophil, Absolute 4.0 10 3/mcL Normal 2.3-8.1 [facility] ([place] Comment on above: Performed By: #### G FR, MG, CBC, BMP, ANEU, ADIFF ####[place] [address] BMPon 09-19-2023 CO2 [Moles/Vol] mmol/L Critically abnormal 22-32 [facility] ([place] Comment on above: Performed By: #### M G, GFR, BMP ####[place] [address] Electrolyte Balance See comment Normal 4.0-15.0 [facility] ([place] Comment on above: Result Comment: Unab le to calculate this test result accurately. Results used to calculate this test are outside the reportable range. Performed By: #### M G, GFR, BMP ####[place] [address] BUN/Creatinine Ratio 16.5 ratio Normal 10.0-22.0 [facility] ([place] Comment on above: Performed By: #### M G, GFR, BMP ####[place] [address] Calcium [Mass/Vol] 9.1 mg/dL Normal 8.7-10.4 [facility] ([place] Comment on above: Performed By: #### M G, GFR, BMP ####[place] [address] Chloride [Moles/Vol] 96 mmol/L Low 98-110 [facility] ([place] Comment on above: Performed By: #### M G, GFR, BMP ####[id number] [place] [address] Creatinine [Mass/Vol] 1.27 mg/dL Normal 0.60-1.40 [facility] ([place]) Comment on above: Performed By: #### Piper Castro, GFR, BMP ####[place] [address] Glucose [Mass/Vol] 92 mg/dL Normal 70-110 [facility] ([place] Comment on above: Performed By: #### Piper Castro, GFR, BMP ####[address] [address] Potassium [Moles/Vol] 3.7 mmol/L Normal 3.5-5.0 [facility] ([place] Comment on above: Performed By: #### Piper Castro, GFR, BMP ####[place] [address] Sodium [Moles/Vol] 140 mmol/L Normal 136-145 [facility] ([place] Comment on above: Performed By: #### Piper Castro, GFR, BMP ####[place] [address] Urea nitrogen [Mass/Vol] 21.0 mg/dL Normal 8.0-22.0 [facility] ([place] Comment on above: Performed By: #### Piper Castro, GFR, BMP ####[place] [address] CO2 [Moles/Vol] mmol/L Critically abnormal 22-32 [facility] ([place] Comment on above: Performed By: #### G FR, MG, CBC, BMP, ANEU, ADIFF ####[place] [address] Electrolyte Balance Unable to Calculate Normal 4.0-15. 0 [facility] ([place] Comment on above: Result Comment: Unab le to calculate this test result accurately. Results used to calculate this test are outside the reportable range. Performed By: #### G FR, MG, CBC, BMP, ANEU, ADIFF ####[place] [address] BUN/Creatinine Ratio 17.7 ratio Normal 10.0-22.0 [facility] ([place] Comment on above: Performed By: #### G FR, MG, CBC, BMP, ANEU, ADIFF ####[address] [address] Calcium [Mass/Vol] 8.7 mg/dL Normal 8.7-10.4 [facility] ([place] Comment on above: Performed By: #### G FR, MG, CBC, BMP, ANEU, ADIFF ####[address] [address] Chloride [Moles/Vol] 98 mmol/L Normal 98-110 [facility] ([place] Comment on above: Performed By: #### G FR, MG, CBC, BMP, ANEU, ADIFF ####[address] [address] Creatinine [Mass/Vol] 1.24 mg/dL Normal 0.60-1.40 [facility] ([place] Comment on above: Performed By: #### G FR, MG, CBC, BMP, ANEU, ADIFF ####[place] [address] Glucose [Mass/Vol] 123 mg/dL High 70-110 [facility] ([place] Comment on above: Performed By: #### G FR, MG, CBC, BMP, ANEU, ADIFF ####[address] [address] Potassium [Moles/Vol] 3.5 mmol/L Normal 3.5-5.0 [facility] ([place] Comment on above: Performed By: #### G FR, MG, CBC, BMP, ANEU, ADIFF ####[address] [address] Sodium [Moles/Vol] 142 mmol/L Normal 136-145 [facility] ([place] Comment on above: Performed By: #### G FR, MG, CBC, BMP, ANEU, ADIFF ####[address] [address] Urea nitrogen [Mass/Vol] 22.0 mg/dL Normal 8.0-22.0 [facility] ([place] Comment on above: Performed By: #### G FR, MG, CBC, BMP, ANEU, ADIFF ####[place] [address] CBCon 09-19-2023 Erythrocyte distribution width (RBC) [Ratio] 16.2 % High 11.5-15.5 [facility] ([place] Comment on above: Performed By: #### G FR, MG, CBC, BMP, ANEU, ADIFF ####[place] [address] Hematocrit (Bld) [Volume fraction] 40.3 % Normal 40.0-52.0 [facility] ([place] Comment on above: Performed By: #### G FR, MG, CBC, BMP, ANEU, ADIFF ####[place] [address] Hgb 13.0 G/dL Normal 13.0-17.5 [facility] ([place] Comment on above: Performed By: #### G FR, MG, CBC, BMP, ANEU, ADIFF ####[place] [address] MCH (RBC) [Entitic mass] 30.7 pg Normal 27.0-33.0 [facility] ([place] Comment on above: Performed By: #### G FR, MG, CBC, BMP, ANEU, ADIFF ####[place] [address] MCHC 32.4 G/dL Normal 32.0-36.0 [facility] ([place] Comment on above: Performed By: #### G FR, MG, CBC, BMP, ANEU, ADIFF ####[place] [address] MCV (RBC) [Entitic vol] 94.8 fL Normal 81.0-100.0 [facility] ([place] Comment on above: Performed By: #### G FR, MG, CBC, BMP, ANEU, ADIFF ####[place] [address] Platelet 210 10 3/mcL Normal 150-450 [facility] ([place] Comment on above: Performed By: #### G FR, MG, CBC, BMP, ANEU, ADIFF ####[place] [address] Platelet mean volume (Bld) [Entitic vol] 7.4 fL Normal 6.4-10.5 [facility] ([place] Comment on above: Performed By: #### G FR, MG, CBC, BMP, ANEU, ADIFF ####[place] [address] [place] [address] RBC 4.25 10 6/mcL Low 4.50-6.00 [facility] ([place] Comment on above: Performed By: #### G FR, MG, CBC, BMP, ANEU, ADIFF ####[place] [address] [place] [address] WBC 5.7 10 3/mcL Normal 4.5-10.8 [facility] ([place] Comment on above: Performed By: #### G FR, MG, CBC, BMP, ANEU, ADIFF ####[place] [address] CT ANGIOGRAPHY CHEST W/CONTR Isi 09-19-2023 CT ANGIOGRAPHY CHEST W/CONTRAST Normal [facility] ([place]) MGon 09-19-2023 Magnesium [Mass/Vol] 1.6 mg/dL Normal 1.6-2.4 [facility] ([place] Comment on above: Performed By: #### M G, GFR, BMP ####[place] [address] Magnesium [Mass/Vol] 1.6 mg/dL Normal 1.6-2.4 [facility] ([place] Comment on above: Performed By: #### G FR, MG, CBC, BMP, ANEU, ADIFF ####[place] [address] PROon 09-19-2023 INR Coag (PPP) [Relative time] 2.8 {INR} Normal [facility] ([place] Comment on above: Order Comment: Proti me drawn in tube. Called Piper Neal RN for recollect. Told her she may need to refresh her tube stock. 09/19/2023 11:07:30 EDT Result Comment: [employer] [place] [employer] (CHEST, 1992, 102:312S-25S)recommended therapeutic range for oral anticoagulant therapy is:LOW RISK: Prophylaxis of venous thrombosis INR: 2.0-3.0 Treatment of pulmonary embolism 2.0-3.0 Prevention of systemic embolism 2.0-3.0HIGH RISK: Mechanical prosthetic valves 2.5-3.5 Performed By: #### P RO ####[address] [address] PT Coag (PPP) [Time] 32.3 s High 9.0-14.4 [facility] ([place] Comment on above: Order Comment: Proti me drawn in tube. Called Piper Neal RN for recollect. Told her she may need to refresh her tube stock. 09/19/2023 11:07:30 EDT Result Comment: Effe ctive 08/28/07, Protime results may be affected by some antibiotics (i.e. Ciprofloxacin, Azithromycin, Bactrim) which may potentiate the action of oral anticoagulants, with further increases in Protime/INR. Performed By: #### P RO ####[place] [address] .Auto Diffon 09-18-2023 Basophil, Absolute 0.1 10 3/mcL Normal 0.0-0.3 [facility] ([place] Comment on above: Performed By: #### A DIFF, HFP, CBC, ANEU ####[address] [address] Basophils/100 WBC (Bld) 1.2 % Normal 0.0-2.5 [facility] ([place] Comment on above: Performed By: #### A DIFF, HFP, CBC, ANEU ####[address] [address] Eosinophil, Absolute 0.3 10 3/mcL Normal 0.0-0.7 [facility] ([place] Comment on above: Performed By: #### A DIFF, HFP, CBC, ANEU ####[address] [address] Eosinophils/100 WBC (Bld) 5.2 % Normal 0.0-6.0 [facility] ([place] Comment on above: Performed By: #### A DIFF, HFP, CBC, ANEU ####[address] [address] Lymphocyte, Absolute 0.8 10 3/mcL Low 0.9-4.3 [facility] ([place] Comment on above: Performed By: #### A DIFF, HFP, CBC, ANEU ####[address] [address] Lymphocytes/100 WBC (Bld) 12.7 % Low 20.0-40.0 [facility] ([place] Comment on above: Performed By: #### A DIFF, HFP, CBC, ANEU ####[address] [address] Monocyte, Absolute 0.8 10 3/mcL Normal 0.1-1.4 [facility] ([place] Comment on above: Performed By: #### A DIFF, HFP, CBC, ANEU ####[address] [address] Monocytes/100 WBC (Bld) 12.8 % Normal 2.0-13.0 [facility] ([place] Comment on above: Performed By: #### A DIFF, HFP, CBC, ANEU ####[address] [address] Neutrophils/100 WBC (Bld) 68.1 % Normal 50.0-75.0 [facility] ([place] Comment on above: Performed By: #### A DIFF, HFP, CBC, ANEU ####[address] [address] .GFRon 09-18-2023 GFR >60 Normal [facility] ([place] Comment on above: Result Comment: GFR Population mean for , Non- Americans Ages 20-29 = 116 mL/min/1.73 sq.m. Ages 30-39 = 107 mL/min/1.73 sq.m. Ages 40-49 = 99 mL/min/1.73 sq.m. Ages 50-59 = 93 mL/min/1.73 sq.m. Ages 60-69 = 85 mL/min/1.73 sq.m. Ages 70+ = 75 mL/min/1.73 sq.m.Chronic Kidney Disease: Less than 60 mL/min/1.73 square metersEnd Stage Renal Disease: Less than 15 mL/min/1.73 square meters Performed By: #### B MP, GFR, MG ####[address] [address] GFR Non- >60 Normal [facility] ([place] Comment on above: Result Comment: GFR Population mean for , Non- Americans Ages 20-29 = 116 mL/min/1.73 sq.m. Ages 30-39 = 107 mL/min/1.73 sq.m. Ages 40-49 = 99 mL/min/1.73 sq.m. Ages 50-59 = 93 mL/min/1.73 sq.m. Ages 60-69 = 85 mL/min/1.73 sq.m. Ages 70+ = 75 mL/min/1.73 sq.m.Chronic Kidney Disease: Less than 60 mL/min/1.73 square metersEnd Stage Renal Disease: Less than 15 mL/min/1.73 square meters Performed By: #### B MP, GFR, MG ####[address] [address] GFR >60 Normal [facility] ([place] Comment on above: Result Comment: GFR Population mean for , Non- Americans Ages 20-29 = 116 mL/min/1.73 sq.m. Ages 30-39 = 107 mL/min/1.73 sq.m. Ages 40-49 = 99 mL/min/1.73 sq.m. Ages 50-59 = 93 mL/min/1.73 sq.m. Ages 60-69 = 85 mL/min/1.73 sq.m. Ages 70+ = 75 mL/min/1.73 sq.m.Chronic Kidney Disease: Less than 60 mL/min/1.73 square metersEnd Stage Renal Disease: Less than 15 mL/min/1.73 square meters Performed By: #### B MP, PRO, GFR, MG ####[address] [address] GFR Non- >60 Normal [facility] ([place] Comment on above: Result Comment: GFR Population mean for , Non- Americans Ages 20-29 = 116 mL/min/1.73 sq.m. Ages 30-39 = 107 mL/min/1.73 sq.m. Ages 40-49 = 99 mL/min/1.73 sq.m. Ages 50-59 = 93 mL/min/1.73 sq.m. Ages 60-69 = 85 mL/min/1.73 sq.m. Ages 70+ = 75 mL/min/1.73 sq.m.Chronic Kidney Disease: Less than 60 mL/min/1.73 square metersEnd Stage Renal Disease: Less than 15 mL/min/1.73 square meters Performed By: #### B MP, PRO, GFR, MG ####[address] [address] .NEUABSon 09-18-2023 Neutrophil, Absolute 4.2 10 3/mcL Normal 2.3-8.1 [facility] ([place] Comment on above: Performed By: #### A DIFF, HFP, CBC, ANEU ####[address] [address] BMPon 09-18-2023 BUN/Creatinine Ratio 18.1 ratio Normal 10.0-22.0 [facility] ([place] Comment on above: Performed By: #### B MP, GFR, MG ####[address] [address] Calcium [Mass/Vol] 8.4 mg/dL Low 8.7-10.4 [facility] ([place] Comment on above: Performed By: #### B MP, GFR, MG ####[address] [address] Chloride [Moles/Vol] 101 mmol/L Normal 98-110 [facility] ([place] Comment on above: Performed By: #### B MP, GFR, MG ####[address] [address] CO2 [Moles/Vol] 37 mmol/L High 22-32 [facility] [place] Comment on above: Performed By: #### B MP, GFR, MG ####[address] [address] Creatinine [Mass/Vol] 1.27 mg/dL Normal 0.60-1.40 [facility] ([place]) Comment on above: Performed By: #### B MP, GFR, MG ####[address] [address] Electrolyte Balance 2.0 mEq/L Low 4.0-15.0 [facility] ([place]) Comment on above: Performed By: #### B MP, GFR, MG ####[address] [address] Glucose [Mass/Vol] 96 mg/dL Normal 70-110 [facility] ([place]) Comment on above: Performed By: #### B MP, GFR, MG ####[address] [address] Potassium [Moles/Vol] 3.9 mmol/L Normal 3.5-5.0 [facility] ([place]) Comment on above: Performed By: #### B MP, GFR, MG ####[address] [address] Sodium [Moles/Vol] 140 mmol/L Normal 136-145 [facility] ([place]) Comment on above: Performed By: #### B MP, GFR, MG ####[address] [address] Urea nitrogen [Mass/Vol] 23.0 mg/dL High 8.0-22.0 [facility] ([place]) Comment on above: Performed By: #### B MP, GFR, MG ####[address] [address] BUN/Creatinine Ratio 19.4 ratio Normal 10.0-22.0 [facility] ([place]) Comment on above: Performed By: #### B MP, PRO, GFR, MG ####[address] [address] Calcium [Mass/Vol] 8.7 mg/dL Normal 8.7-10.4 [facility] ([place]) Comment on above: Performed By: #### B MP, PRO, GFR, MG ####[address] [address] Chloride [Moles/Vol] 102 mmol/L Normal 98-110 [facility] ([place]) Comment on above: Performed By: #### B MP, PRO, GFR, MG ####[place] [address] CO2 [Moles/Vol] 37 mmol/L High 22-32 [facility] ([place]) Comment on above: Performed By: #### B MP, PRO, GFR, MG ####[place] [address] Creatinine [Mass/Vol] 1.29 mg/dL Normal 0.60-1.40 [facility] ([place]) Comment on above: Performed By: #### B MP, PRO, GFR, MG ####[place] [address] Electrolyte Balance 2.0 mEq/L Low 4.0-15.0 [facility] ([place]) Comment on above: Performed By: #### B MP, PRO, GFR, MG ####[place] [address] Glucose [Mass/Vol] 103 mg/dL Normal 70-110 [facility] ([place]) Comment on above: Performed By: #### B MP, PRO, GFR, MG ####[place] [address] Potassium [Moles/Vol] 3.7 mmol/L Normal 3.5-5.0 [facility] ([place]) Comment on above: Performed By: #### B MP, PRO, GFR, MG ####[place] [address] Sodium [Moles/Vol] 141 mmol/L Normal 136-145 [facility] ([place]) Comment on above: Performed By: #### B MP, PRO, GFR, MG ####[place] [address] Urea nitrogen [Mass/Vol] 25.0 mg/dL High 8.0-22.0 [facility] ([place]) Comment on above: Performed By: #### B MP, PRO, GFR, MG ####[place] [address] CBCon 09-18-2023 Erythrocyte distribution width (RBC) [Ratio] 16.7 % High 11.5-15.5 [facility] ([place]) Comment on above: Performed By: #### A DIFF, HFP, CBC, ANEU ####[address] [address] Hematocrit (Bld) [Volume fraction] 41.4 % Normal 40.0-52.0 [facility] ([place]) Comment on above: Performed By: #### A DIFF, HFP, CBC, ANEU ####[address] [address] Hgb 13.2 G/dL Normal 13.0-17.5 [facility] ([place]) Comment on above: Performed By: #### A DIFF, HFP, CBC, ANEU ####[address] [address] MCH (RBC) [Entitic mass] 30.7 pg Normal 27.0-33.0 [facility] ([place]) Comment on above: Performed By: #### A DIFF, HFP, CBC, ANEU ####[place] [address] MCHC 32.0 G/dL Normal 32.0-36.0 [facility] ([place]) Comment on above: Performed By: #### A DIFF, HFP, CBC, ANEU ####[address] [address] MCV (RBC) [Entitic vol] 95.9 fL Normal 81.0-100.0 [facility] ([place]) Comment on above: Performed By: #### A DIFF, HFP, CBC, ANEU ####[address] [address] Platelet 205 10 3/mcL Normal 150-450 [facility] ([place]) Comment on above: Performed By: #### A DIFF, HFP, CBC, ANEU ####[address] [address] Platelet mean volume (Bld) [Entitic vol] 7.6 fL Normal 6.4-10.5 [facility] ([place]) Comment on above: Performed By: #### A DIFF, HFP, CBC, ANEU ####[address] [address] RBC 4.32 10 6/mcL Low 4.50-6.00 [facility] ([place]) Comment on above: Performed By: #### A DIFF, HFP, CBC, ANEU ####[address] [address] WBC 6.2 10 3/mcL Normal 4.5-10.8 [facility] ([place]) Comment on above: Performed By: #### A DIFF, HFP, CBC, ANEU ####[address] [address] HFPon 09-18-2023 Bili Indirect 0.3 mg/dL Normal 0.1-10.0 [facility] ([place]) Comment on above: Performed By: #### A DIFF, HFP, CBC, ANEU ####[place] [address] Albumin Level 3.0 G/dL Low 3.2-4.8 [facility] ([place]) Comment on above: Performed By: #### A DIFF, HFP, CBC, ANEU ####[address] [address] Albumin/Globulin [Mass ratio] 0.9 {ratio} Normal 0.9-1.6 [facility] ([place]) Comment on above: Performed By: #### A DIFF, HFP, CBC, ANEU ####[address] [address] ALP [Catalytic activity/Vol] 153 U/L High 38-126 [facility] ([place]) Comment on above: Performed By: #### A DIFF, HFP, CBC, ANEU ####[address] [address] ALT [Catalytic activity/Vol] 14 U/L Normal 12-55 [facility] ([place]) Comment on above: Performed By: #### A DIFF, HFP, CBC, ANEU ####[address] [address] AST [Catalytic activity/Vol] 20 U/L Normal 8-34 [facility] ([place]) Comment on above: Performed By: #### A DIFF, HFP, CBC, ANEU ####[address] [address] Bili Direct 0.8 mg/dL High 0.0-0.4 [facility] ([place]) Comment on above: Result Comment: Use of this assay is not recommended for patients undergoing treatment with eltrombopag due to the potential for falsely elevated results. Performed By: #### A DIFF, HFP, CBC, ANEU ####[place] [address] Bili Total 1.10 mg/dL Normal 0.20-1.20 [facility] ([place]) Comment on above: Result Comment: Use of this assay is not recommended for patients undergoing treatment with eltrombopag due to the potential for falsely elevated results. Performed By: #### A DIFF, HFP, CBC, ANEU ####[place] [address] Globulin 3.3 G/dL Normal 1.5-3.8 [facility] ([place]) Comment on above: Performed By: #### A DIFF, HFP, CBC, ANEU ####[place] [address] Total Protein 6.3 G/dL Normal 5.7-8.2 [facility] ([place]) Comment on above: Result Comment: No te - New Reference Range in effect 19 Performed By: #### A DIFF, HFP, CBC, ANEU ####[place] [address] LABORATORYOrdered By: SYSTEM SYSTEM on 09-18-2023 Albumin BCP dye [Mass/Vol] 3.0 G/dL Low 3.2 - 4.8 G/dL ADM SS Albumin/Globulin [Mass ratio] 0.9 {ratio} Normal 0.9 - 1.6 ratio AH ADM SS ALP [Catalytic activity/Vol] 153 U/L High 38 - 126 U/L AH ADM SS ALT No additional P-5'-P [Catalytic activity/Vol] 14 U/L Normal 12 - 55 U/L AH ADM SS AST [Catalytic activity/Vol] 20 U/L Normal 8 - 34 U/L ADM SS Bili Indirect 0.3 mg/dL Normal 0.1 - 10.0 mg/dL Chemistry S Bilirubin [Mass/Vol] 1.10 mg/dL Normal 0.20 - 1.20 mg/dL AH ADM SS Comment on above: Interpretive Data: U se of this assay is not recommended for patients undergoing treatment with eltrombopag due to the potential for falsely elevated results. Bilirubin.conjugated [Mass/Vol] 0.8 mg/dL High 0.0 - 0.4 mg/dL ADM SS Comment on above: Interpretive Data: U se of this assay is not recommended for patients undergoing treatment with eltrombopag due to the potential for falsely elevated results. Globulin 3.3 G/dL Normal 1.5 - 3.8 G/dL ADM SS Protein [Mass/Vol] 6.3 G/dL Normal 5.7 - 8.2 G/dL ADM SS Comment on above: Interpretive Data: * *Note - New Reference Range in effect 19 MGon 09-18-2023 Magnesium [Mass/Vol] 2.0 mg/dL Normal 1.6-2.4 [facility]) Comment on above: Performed By: #### B MP, GFR, MG ####[address] [address] Magnesium [Mass/Vol] 1.4 mg/dL Low 1.6-2.4 [facility]) Comment on above: Performed By: #### B MP, PRO, GFR, MG ####[address] [address] NM PULMONARY PERFUSION ONLYo n 09-18-2023 NM PULMONARY PERFUSION ONLY Normal [facility] ([place]) PROon 09-18-2023 INR Coag (PPP) [Relative time] 3.3 {INR} Normal [facility] ([place]) Comment on above: Order Comment: pleas e fill the tube at least 90%. called jose Result Comment: The [place] [employer] (CHEST, 1992, 102:312S-25S)recommended therapeutic range for oral anticoagulant therapy is:LOW RISK: Prophylaxis of venous thrombosis INR: 2.0-3.0 Treatment of pulmonary embolism 2.0-3.0 Prevention of systemic embolism 2.0-3.0HIGH RISK: Mechanical prosthetic valves 2.5-3.5 Performed By: #### B MP, PRO, GFR, MG ####[address] [address] PT Coag (PPP) [Time] 38.7 s High 9.0-14.4 [facility] ([place]) Comment on above: Order Comment: pleas e fill the tube at least 90%. called jose Result Comment: Effe ctive 08/28/07, Protime results may be affected by some antibiotics (i.e. Ciprofloxacin, Azithromycin, Bactrim) which may potentiate the action of oral anticoagulants, with further increases in Protime/INR. Performed By: #### B MP, PRO, GFR, MG ####[place] [address] [place] [address] XR CHEST 2 VIEWSon XR CHEST 2 VIEWS Normal [facility] ([place]) .GFRon 09-17-2023 GFR 58 ml/min/1.73sqm Normal [facility] ([place]) Comment on above: Result Comment: GFR Population mean for , Non- Americans Ages 20-29 = 116 mL/min/1.73 sq.m. Ages 30-39 = 107 mL/min/1.73 sq.m. Ages 40-49 = 99 mL/min/1.73 sq.m. Ages 50-59 = 93 mL/min/1.73 sq.m. Ages 60-69 = 85 mL/min/1.73 sq.m. Ages 70+ = 75 mL/min/1.73 sq.m.Chronic Kidney Disease: Less than 60 mL/min/1.73 square metersEnd Stage Renal Disease: Less than 15 mL/min/1.73 square meters Performed By: #### M G, GFR, BMP ####[address] [place], [place] [address] GFR Non- 48 ml/min/1.73sqm Normal [facility] ([place]) Comment on above: Result Comment: GFR Population mean for , Non- Americans Ages 20-29 = 116 mL/min/1.73 sq.m. Ages 30-39 = 107 mL/min/1.73 sq.m. Ages 40-49 = 99 mL/min/1.73 sq.m. Ages 50-59 = 93 mL/min/1.73 sq.m. Ages 60-69 = 85 mL/min/1.73 sq.m. Ages 70+ = 75 mL/min/1.73 sq.m.Chronic Kidney Disease: Less than 60 mL/min/1.73 square metersEnd Stage Renal Disease: Less than 15 mL/min/1.73 square meters Performed By: #### Piper Castro, GFR, BMP ####[address] [place], [place] [address] BMPon 09-17-2023 BUN/Creatinine Ratio 16 ratio Normal 7-27 [facility] ([place]) Comment on above: Performed By: #### Piper Castro, GFR, BMP ####[address] [place], [place] [address] Calcium [Mass/Vol] 8.6 mg/dL Normal 8.4-10.2 [facility] ([place]) Comment on above: Performed By: #### Piper Castro, GFR, BMP ####[address] [place], [place] [address] Chloride [Moles/Vol] 104 mmol/L Normal 98-107 [facility] ([place]) Comment on above: Performed By: #### Piper Castro, GFR, BMP ####[address] [place], [place] [address] CO2 [Moles/Vol] 36 mmol/L High 22-29 [facility] ([place]) Comment on above: Performed By: #### Piper Castro, GFR, BMP ####[address] [place], [place] [address] Creatinine [Mass/Vol] 1.59 mg/dL High 0.70-1.30 [facility] ([place]) Comment on above: Performed By: #### Piper Castro, GFR, BMP ####[address] [place], [place] [address] Electrolyte Balance 3.0 mEq/L Low 4.0-15.0 [facility] ([place]) Comment on above: Performed By: #### M G, GFR, BMP ####[address] [place], [place] [address] Glucose [Mass/Vol] 93 mg/dL Normal 70-105 [facility] ([place]) Comment on above: Performed By: #### Piper G, GFR, BMP ####[address] [place], [place] [address] Potassium [Moles/Vol] 4.6 mmol/L Normal 3.5-5.1 [facility] ([place]) Comment on above: Performed By: #### Piper G, GFR, BMP ####[address] [place], [place] [address] Sodium [Moles/Vol] 143 mmol/L Normal 136-145 [facility] ([place]) Comment on above: Performed By: #### Piper G, GFR, BMP ####[address] [place], [place] [address] Urea nitrogen [Mass/Vol] 25 mg/dL High 7-18 [facility] ([place]) Comment on above: Performed By: #### Piper G, GFR, BMP ####[address] [place], [place] [address] CBLon 09-17-2023 CBL Normal [facility]) LABORATORYOrdered By: SYSTEM SYSTEM on 09-17-2023 Calcium [Mass/Vol] 8.6 mg/dL Normal 8.4 - 10. 2 mg/dL AO ADM SS Chloride [Moles/Vol] 104 mmol/L Normal 98 - 10 7 mmol/L AO ADM SS CO2 [Moles/Vol] 36 mmol/L High 22 - 29 mmol/L AO ADM SS Creatinine [Mass/Vol] 1.59 mg/dL High 0.70 - 1.30 mg/dL AO ADM SS Electrolyte Balance 3.0 mEq/L Low 4.0 - 15 .0 mEq/L AO ADM SS GFR/1.73 sq M.predicted among blacks MDRD (S/P/Bld) [Vol rate/Area] 58 ml/min/1.73sqm Invalid Interpretation Code AO Chemistry S Comment on above: Interpretive Data: GFR Population mean for , Non- Americans Ages 20-29 = 116 mL/min/1.73 sq.m. Ages 30-39 = 107 mL/min/1.73 sq.m. Ages 40-49 = 99 mL/min/1.73 sq.m. Ages 50-59 = 93 mL/min/1.73 sq.m. Ages 60-69 = 85 mL/min/1.73 sq.m. Ages 70+ = 75 mL/min/1.73 sq.m. Chronic Kidney Disease: Less than 60 mL/min/1.73 square meters End Stage Renal Disease: Less than 15 mL/min/1.73 square meters GFR/1.73 sq M.predicted among non-blacks MDRD (S/P/Bld) [Vol rate/Area] 48 ml/min/1.73sqm Invalid Interpretation Code AO Chemistry S Comment on above: Interpretive Data: GFR Population mean for , Non- Americans Ages 20-29 = 116 mL/min/1.73 sq.m. Ages 30-39 = 107 mL/min/1.73 sq.m. Ages 40-49 = 99 mL/min/1.73 sq.m. Ages 50-59 = 93 mL/min/1.73 sq.m. Ages 60-69 = 85 mL/min/1.73 sq.m. Ages 70+ = 75 mL/min/1.73 sq.m. Chronic Kidney Disease: Less than 60 mL/min/1.73 square meters End Stage Renal Disease: Less than 15 mL/min/1.73 square meters Glucose [Mass/Vol] 93 mg/dL Normal 70 - 105 mg/dL AO ADM SS Magnesium [Mass/Vol] 1.6 mg/dL Low 1.8 - 2 .4 mg/dL AO ADM SS Potassium [Moles/Vol] 4.6 mmol/L Normal 3.5 - 5.1 mmol/L AO ADM SS Sodium [Moles/Vol] 143 mmol/L Normal 136 - 145 mmol/L AO ADM SS Urea nitrogen [Mass/Vol] 25 mg/dL High 7 - 18 mg/dL AO ADM SS Urea nitrogen/Creatinine [Mass ratio] 16 ratio Normal 7 - 27 ratio AO ADM SS LABORATORYOrdered By: Carmen Rome on 09-17-2023 PT Coag (PPP) [Time] 44.0 s High 9.0 - 1 4.4 seconds AO Coagulation S PT International Ratio 3.8 1 Invalid Interpretation Code AO Coagulation S Comment on above: Interpretive Data: T he [place] [employer] (CHEST, 1991, 102:312S-25S) recommended therapeutic range for oral anticoagulant therapy is: LOW RISK: Prophylaxis of venous thrombosis INR: 2.0-3.0 Treatment of pulmonary embolism 2.0-3.0 Prevention of systemic embolism 2.0-3.0 HIGH RISK: Mechanical prosthetic valves 2.5-3.5 MGon 09-17-2023 Magnesium [Mass/Vol] 1.6 mg/dL Low 1.8-2.4 [facility] ([place]) Comment on above: Performed By: #### Piper Castro GFR, BMP ####[address] [place], [place] [address] PROon 09-17-2023 PT Coag (PPP) [Time] 44.0 s High 9.0-14.4 [facility] ([place]) Comment on above: Order Comment: order ed secondary to warfarin order Performed By: #### Piper Castro GFR, BMP ####[address] [place], [place] [address] PT International Ratio 3.8 Normal [facility] ([place]) Comment on above: Order Comment: order ed secondary to warfarin order Result Comment: The [place] [employer] (CHEST, 1991, 102:312S-25S)recommended therapeutic range for oral anticoagulant therapy is:LOW RISK: Prophylaxis of venous thrombosis INR: 2.0-3.0 Treatment of pulmonary embolism 2.0-3.0 Prevention of systemic embolism 2.0-3.0HIGH RISK: Mechanical prosthetic valves 2.5-3.5 Performed By: #### Piper Castro GFR, BMP ####[address] [place], [place] [address] .GFRon 09-16-2023 GFR Non- 55 ml/min/1.73sqm Normal [facility] ([place]) Comment on above: Result Comment: GFR Population mean for , Non- Americans Ages 20-29 = 116 mL/min/1.73 sq.m. Ages 30-39 = 107 mL/min/1.73 sq.m. Ages 40-49 = 99 mL/min/1.73 sq.m. Ages 50-59 = 93 mL/min/1.73 sq.m. Ages 60-69 = 85 mL/min/1.73 sq.m. Ages 70+ = 75 mL/min/1.73 sq.m.Chronic Kidney Disease: Less than 60 mL/min/1.73 square metersEnd Stage Renal Disease: Less than 15 mL/min/1.73 square meters Performed By: #### B MP, MG, PRO, TROPHS, GFR ####[address] [place], [place] [address] GFR 66 ml/min/1.73sqm Normal [facility] ([place]) Comment on above: Result Comment: GFR Population mean for , Non- Americans Ages 20-29 = 116 mL/min/1.73 sq.m. Ages 30-39 = 107 mL/min/1.73 sq.m. Ages 40-49 = 99 mL/min/1.73 sq.m. Ages 50-59 = 93 mL/min/1.73 sq.m. Ages 60-69 = 85 mL/min/1.73 sq.m. Ages 70+ = 75 mL/min/1.73 sq.m.Chronic Kidney Disease: Less than 60 mL/min/1.73 square metersEnd Stage Renal Disease: Less than 15 mL/min/1.73 square meters Performed By: #### B MP, MG, PRO, TROPHS, GFR ####[address] [place], [place] [address] BMPon 09-16-2023 BUN/Creatinine Ratio 15 ratio Normal 7-27 [facility] ([place]) Comment on above: Performed By: #### B MP, MG, PRO, TROPHS, GFR ####[address] [place], [place] [address] Calcium [Mass/Vol] 9.1 mg/dL Normal 8.4-10.2 [facility] ([place]) Comment on above: Performed By: #### B MP, MG, PRO, TROPHS, GFR ####[address] [place], [place] [address] Chloride [Moles/Vol] 102 mmol/L Normal 98-107 [facility] ([place]) Comment on above: Performed By: #### B MP, MG, PRO, TROPHS, GFR ####[address] [place], [place] [address] CO2 [Moles/Vol] 30 mmol/L High 22-29 [facility] ([place]) Comment on above: Performed By: #### B MP, MG, PRO, TROPHS, GFR ####[address] [place], [place] [address] Creatinine [Mass/Vol] 1.41 mg/dL High 0.70-1.30 [facility] ([place]) Comment on above: Performed By: #### B MP, MG, PRO, TROPHS, GFR ####[address] [place], [place] [address] Electrolyte Balance 7.0 mEq/L Normal 4.0-15.0 [facility] ([place]) Comment on above: Performed By: #### B MP, MG, PRO, TROPHS, GFR ####[address] [place], [place] [address] Glucose [Mass/Vol] 122 mg/dL High 70-105 [facility] ([place]) Comment on above: Performed By: #### B MP, MG, PRO, TROPHS, GFR ####[address] [place], [place] [address] Potassium [Moles/Vol] 5.3 mmol/L High 3.5-5.1 [facility] ([place]) Comment on above: Performed By: #### B MP, MG, PRO, TROPHS, GFR ####[address] [place], [place] [address] Sodium [Moles/Vol] 139 mmol/L Normal 136-145 [facility] ([place]) Comment on above: Performed By: #### B MP, MG, PRO, TROPHS, GFR ####[address] [place], [place] [address] Urea nitrogen [Mass/Vol] 21 mg/dL High 7-18 [facility] ([place]) Comment on above: Performed By: #### B MP, MG, PRO, TROPHS, GFR ####[address] [place], [place] [address] LABORATORYOrdered By: SYSTEM SYSTEM on 09-16-2023 Calcium [Mass/Vol] 9.1 mg/dL Normal 8.4 - 10. 2 mg/dL AO ADM SS Chloride [Moles/Vol] 102 mmol/L Normal 98 - 10 7 mmol/L AO ADM SS CO2 [Moles/Vol] 30 mmol/L High 22 - 29 mmol/L AO ADM SS Creatinine [Mass/Vol] 1.41 mg/dL High 0.70 - 1.30 mg/dL AO ADM SS Electrolyte Balance 7.0 mEq/L Normal 4.0 - 15 .0 mEq/L AO ADM SS GFR/1.73 sq M.predicted among blacks MDRD (S/P/Bld) [Vol rate/Area] 66 ml/min/1.73sqm Invalid Interpretation Code AO Chemistry S Comment on above: Interpretive Data: GFR Population mean for , Non- Americans Ages 20-29 = 116 mL/min/1.73 sq.m. Ages 30-39 = 107 mL/min/1.73 sq.m. Ages 40-49 = 99 mL/min/1.73 sq.m. Ages 50-59 = 93 mL/min/1.73 sq.m. Ages 60-69 = 85 mL/min/1.73 sq.m. Ages 70+ = 75 mL/min/1.73 sq.m. Chronic Kidney Disease: Less than 60 mL/min/1.73 square meters End Stage Renal Disease: Less than 15 mL/min/1.73 square meters GFR/1.73 sq M.predicted among non-blacks MDRD (S/P/Bld) [Vol rate/Area] 55 ml/min/1.73sqm Invalid Interpretation Code AO Chemistry S Comment on above: Interpretive Data: GFR Population mean for , Non- Americans Ages 20-29 = 116 mL/min/1.73 sq.m. Ages 30-39 = 107 mL/min/1.73 sq.m. Ages 40-49 = 99 mL/min/1.73 sq.m. Ages 50-59 = 93 mL/min/1.73 sq.m. Ages 60-69 = 85 mL/min/1.73 sq.m. Ages 70+ = 75 mL/min/1.73 sq.m. Chronic Kidney Disease: Less than 60 mL/min/1.73 square meters End Stage Renal Disease: Less than 15 mL/min/1.73 square meters Glucose [Mass/Vol] 122 mg/dL High 70 - 105 mg/dL AO ADM SS Magnesium [Mass/Vol] 1.8 mg/dL Normal 1.8 - 2 .4 mg/dL AO ADM SS Potassium [Moles/Vol] 5.3 mmol/L High 3.5 - 5.1 mmol/L AO ADM SS Sodium [Moles/Vol] 139 mmol/L Normal 136 - 145 mmol/L AO ADM SS Troponin I.cardiac DL <= 0.01 ng/mL [Mass/Vol] 24 ng/L Normal 0 - 76 ng/L AO ADM SS Comment on above: Interpretive Data: H igh Sensitive Troponin I Reference Ranges: Female: 0-51 ng/L Male: 0-76 ng/L Testing performed on [employer] using a homogeneous sandwich chemiluminescent immunoassay based on [employer] technology. Urea nitrogen [Mass/Vol] 21 mg/dL High 7 - 18 mg/dL AO ADM SS Urea nitrogen/Creatinine [Mass ratio] 15 ratio Normal 7 - 27 ratio AO ADM SS Vancomycin trough [Mass/Vol] 22.3 ug/mL High 5.0 - 20.0 mcg/mL AO ADM SS LABORATORYOrdered By: Kaitlynn Damian on 09-16-2023 INR Coag (PPP) [Relative time] 2.8 {INR} Invalid Interpretation Code AO [employer] SS Comment on above: Interpretive Data: Cindy briggs [place] [employer] (CHEST, 1991, 102:312S-25S) recommended therapeutic range for oral anticoagulant therapy is: LOW RISK: Prophylaxis of venous thrombosis INR: 2.0-3.0 Treatment of pulmonary embolism 2.0-3.0 Prevention of systemic embolism 2.0-3.0 HIGH RISK: Mechanical prosthetic valves 2.5-3.5 PT Coag (PPP) [Time] 32.2 s High 9.0 - 1 4.4 seconds AO [facility] SS LDose Vancomycin:(trough) See eMAR (09/16/23 4:30 AM) Normal AO Chemistry S MGon 09-16-2023 Magnesium [Mass/Vol] 1.8 mg/dL Normal 1.8-2.4 [facility] ([place]) Comment on above: Performed By: #### B MP, MG, PRO, TROPHS, GFR ####[address] [place], [place] [address] PROon 09-16-2023 PT Coag (PPP) [Time] 32.2 s High 9.0-14.4 [facility] ([place]) Comment on above: Order Comment: order ed secondary to warfarin order Performed By: #### B MP, MG, PRO, TROPHS, GFR ####[address] [place], [place] [address] PT International Ratio 2.8 Normal [facility] ([place]) Comment on above: Order Comment: order ed secondary to warfarin order Result Comment: The [place] [employer] (CHEST, 1992, 102:312S-25S)recommended therapeutic range for oral anticoagulant therapy is:LOW RISK: Prophylaxis of venous thrombosis INR: 2.0-3.0 Treatment of pulmonary embolism 2.0-3.0 Prevention of systemic embolism 2.0-3.0HIGH RISK: Mechanical prosthetic valves 2.5-3.5 Performed By: #### B MP, MG, PRO, TROPHS, GFR ####[address] [place], [place] [address] TROPHSon 09-16-2023 High Sensitivity Troponin I 24 ng/L Normal 0-76 [facility] ([place]) Comment on above: Result Comment: High Sensitive Troponin I Reference Ranges:Female: 0-51 ng/LMale: 0-76 ng/LTesting performed on [employer] using a homogeneous sandwich chemiluminescent immunoassay based on [employer] technology. Performed By: #### B MP, MG, PRO, TROPHS, GFR ####[address] [place], [place] [address] VANCTon 09-16-2023 LDose Vancomycin:(trough) See eMAR Normal [facility] ([place]) Comment on above: Order Comment: Pleas e draw trough prior to hanging dose Performed By: #### V ANCT ####[address] [place], [place] [address] Vancomycin Tr 22.3 mcg/mL High 5.0-20.0 [facility] ([place]) Comment on above: Order Comment: Pleas e draw trough prior to hanging dose Performed By: #### V ANCT ####[address] [place], [place] [address] .GFRon 09-15-2023 GFR 64 ml/min/1.73sqm Normal [facility] ([place]) Comment on above: Result Comment: GFR Population mean for , Non- Americans Ages 20-29 = 116 mL/min/1.73 sq.m. Ages 30-39 = 107 mL/min/1.73 sq.m. Ages 40-49 = 99 mL/min/1.73 sq.m. Ages 50-59 = 93 mL/min/1.73 sq.m. Ages 60-69 = 85 mL/min/1.73 sq.m. Ages 70+ = 75 mL/min/1.73 sq.m.Chronic Kidney Disease: Less than 60 mL/min/1.73 square metersEnd Stage Renal Disease: Less than 15 mL/min/1.73 square meters Performed By: #### B MP, GFR, PRO, MG ####[address] [place], [place] [address] GFR Non- 52 ml/min/1.73sqm Normal [facility] ([place]) Comment on above: Result Comment: GFR Population mean for , Non- Americans Ages 20-29 = 116 mL/min/1.73 sq.m. Ages 30-39 = 107 mL/min/1.73 sq.m. Ages 40-49 = 99 mL/min/1.73 sq.m. Ages 50-59 = 93 mL/min/1.73 sq.m. Ages 60-69 = 85 mL/min/1.73 sq.m. Ages 70+ = 75 mL/min/1.73 sq.m.Chronic Kidney Disease: Less than 60 mL/min/1.73 square metersEnd Stage Renal Disease: Less than 15 mL/min/1.73 square meters Performed By: #### B MP, GFR, PRO, MG ####[address] [place], [place] [address] BMPon 09-15-2023 BUN/Creatinine Ratio 14 ratio Normal 7-27 [facility] ([place]) Comment on above: Performed By: #### B MP, GFR, PRO, MG ####[address] [place], [place] [address] Calcium [Mass/Vol] 9.0 mg/dL Normal 8.4-10.2 [facility] ([place]) Comment on above: Performed By: #### B MP, GFR, PRO, MG ####[address] [place], [place] [address] Chloride [Moles/Vol] 103 mmol/L Normal 98-107 [facility] ([place]) Comment on above: Performed By: #### B MP, GFR, PRO, MG ####[address] [place], [place] [address] CO2 [Moles/Vol] 31 mmol/L High 22-29 [facility] ([place]) Comment on above: Performed By: #### B MP, GFR, PRO, MG ####[address] [place], [place] [address] Creatinine [Mass/Vol] 1.46 mg/dL High 0.70-1.30 [facility] ([place]) Comment on above: Performed By: #### B MP, GFR, PRO, MG ####[address] [place], [place] [address] Electrolyte Balance 7.0 mEq/L Normal 4.0-15.0 [facility] ([place]) Comment on above: Performed By: #### B MP, GFR, PRO, MG ####[address] [place], [place] [address] Glucose [Mass/Vol] 102 mg/dL Normal 70-105 [facility] ([place]) Comment on above: Performed By: #### B MP, GFR, PRO, MG ####[address] [place], [place] [address] Potassium [Moles/Vol] 5.2 mmol/L High 3.5-5.1 [facility] ([place]) Comment on above: Performed By: #### B MP, GFR, PRO, MG ####[address] [place], [place] [address] Sodium [Moles/Vol] 141 mmol/L Normal 136-145 [facility] ([place]) Comment on above: Performed By: #### B MP, GFR, PRO, MG ####[address] [place], [place] [address] Urea nitrogen [Mass/Vol] 20 mg/dL High 7-18 [facility] ([place]) Comment on above: Performed By: #### B MP, GFR, PRO, MG ####[address] [place], [place] [address] LABORATORYOrdered By: SYSTEM SYSTEM on 09-15-2023 Natriuretic peptide.B prohormone N-Terminal [Mass/Vol] 2068 pg/mL High 0 - 125 pg/mL AO ADM SS Comment on above: Interpretive Data: N T-proBNP results of less than 300 pg/mL effectively rules out acute congestive heart failure with 99% negative predictive value. Troponin I.cardiac DL <= 0.01 ng/mL [Mass/Vol] 22 ng/L Normal 0 - 76 ng/L AO ADM SS Comment on above: Interpretive Data: H igh Sensitive Troponin I Reference Ranges: Female: 0-51 ng/L Male: 0-76 ng/L Testing performed on [employer] using a homogeneous sandwich chemiluminescent immunoassay based on VirtualU technology. Troponin I.cardiac DL <= 0.01 ng/mL [Mass/Vol] 16 ng/L Normal 0 - 76 ng/L AO ADM SS Comment on above: Interpretive Data: H igh Sensitive Troponin I Reference Ranges: Female: 0-51 ng/L Male: 0-76 ng/L Testing performed on [employer] using a homogeneous sandwich chemiluminescent immunoassay based on VirtualU technology. Calcium [Mass/Vol] 9.0 mg/dL Normal 8.4 - 10. 2 mg/dL AO ADM SS Chloride [Moles/Vol] 103 mmol/L Normal 98 - 10 7 mmol/L AO ADM SS CO2 [Moles/Vol] 31 mmol/L High 22 - 29 mmol/L AO ADM SS Creatinine [Mass/Vol] 1.46 mg/dL High 0.70 - 1.30 mg/dL AO ADM SS Electrolyte Balance 7.0 mEq/L Normal 4.0 - 15 .0 mEq/L AO ADM SS GFR/1.73 sq M.predicted among blacks MDRD (S/P/Bld) [Vol rate/Area] 64 ml/min/1.73sqm Invalid Interpretation Code AO Chemistry S Comment on above: Interpretive Data: GFR Population mean for , Non- Americans Ages 20-29 = 116 mL/min/1.73 sq.m. Ages 30-39 = 107 mL/min/1.73 sq.m. Ages 40-49 = 99 mL/min/1.73 sq.m. Ages 50-59 = 93 mL/min/1.73 sq.m. Ages 60-69 = 85 mL/min/1.73 sq.m. Ages 70+ = 75 mL/min/1.73 sq.m. Chronic Kidney Disease: Less than 60 mL/min/1.73 square meters End Stage Renal Disease: Less than 15 mL/min/1.73 square meters GFR/1.73 sq M.predicted among non-blacks MDRD (S/P/Bld) [Vol rate/Area] 52 ml/min/1.73sqm Invalid Interpretation Code AO Chemistry S Comment on above: Interpretive Data: GFR Population mean for , Non- Americans Ages 20-29 = 116 mL/min/1.73 sq.m. Ages 30-39 = 107 mL/min/1.73 sq.m. Ages 40-49 = 99 mL/min/1.73 sq.m. Ages 50-59 = 93 mL/min/1.73 sq.m. Ages 60-69 = 85 mL/min/1.73 sq.m. Ages 70+ = 75 mL/min/1.73 sq.m. Chronic Kidney Disease: Less than 60 mL/min/1.73 square meters End Stage Renal Disease: Less than 15 mL/min/1.73 square meters Glucose [Mass/Vol] 102 mg/dL Normal 70 - 105 mg/dL AO ADM SS Magnesium [Mass/Vol] 2.0 mg/dL Normal 1.8 - 2 .4 mg/dL AO ADM SS Potassium [Moles/Vol] 5.2 mmol/L High 3.5 - 5.1 mmol/L AO ADM SS Sodium [Moles/Vol] 141 mmol/L Normal 136 - 145 mmol/L AO ADM SS Urea nitrogen [Mass/Vol] 20 mg/dL High 7 - 18 mg/dL AO ADM SS Urea nitrogen/Creatinine [Mass ratio] 14 ratio Normal 7 - 27 ratio AO ADM SS LABORATORYOrdered By: Leelee Leong on 09-15-2023 INR Coag (PPP) [Relative time] 2.3 {INR} Invalid Interpretation Code AO HemoHub SS Comment on above: Interpretive Data: T brigitte [place] [employer] (CHEST, 1991, 102:312S-25S) recommended therapeutic range for oral anticoagulant therapy is: LOW RISK: Prophylaxis of venous thrombosis INR: 2.0-3.0 Treatment of pulmonary embolism 2.0-3.0 Prevention of systemic embolism 2.0-3.0 HIGH RISK: Mechanical prosthetic valves 2.5-3.5 PT Coag (PPP) [Time] 27.2 s High 9.0 - 1 4.4 seconds AO HemoHub SS MGon 09-15-2023 Magnesium [Mass/Vol] 2.0 mg/dL Normal 1.8-2.4 [facility] ([place]) Comment on above: Performed By: #### B MP, GFR, PRO, MG ####[address] [place], [place] [address] PBNPon 09-15-2023 Natriuretic peptide B (Bld) [Mass/Vol] 2068 pg/mL High 0-125 [facility] ([place]) Comment on above: Result Comment: NT-p roBNP results of less than 300 pg/mL effectivelyrules out acute congestive heart failure with 99% negative predictive value. Performed By: #### P BNP, TROPHS ####[address] [place], [place] [address] PROon 09-15-2023 PT Coag (PPP) [Time] 27.2 s High 9.0-14.4 [facility] ([place]) Comment on above: Order Comment: order ed secondary to warfarin order Performed By: #### B MP, GFR, PRO, MG ####[address] [place], [place] [address] PT International Ratio 2.3 Normal [facility] ([place]) Comment on above: Order Comment: order ed secondary to warfarin order Result Comment: [employer] [place] [employer] (CHEST, 1991, 102:312S-25S)recommended therapeutic range for oral anticoagulant therapy is:LOW RISK: Prophylaxis of venous thrombosis INR: 2.0-3.0 Treatment of pulmonary embolism 2.0-3.0 Prevention of systemic embolism 2.0-3.0HIGH RISK: Mechanical prosthetic valves 2.5-3.5 Performed By: #### B MP, GFR, PRO, MG ####[address] [place], [place] [address] TROPHSon 09-15-2023 High Sensitivity Troponin I 22 ng/L Normal 0-76 [facility] ([place]) Comment on above: Result Comment: High Sensitive Troponin I Reference Ranges:Female: 0-51 ng/LMale: 0-76 ng/LTesting performed on [employer] using a homogeneous sandwich chemiluminescent immunoassay based on VirtualU technology. Performed By: #### P BNP, TROPHS ####[address] [place], [place] [address] High Sensitivity Troponin I 16 ng/L Normal 0-76 [facility] ([place]) Comment on above: Result Comment: High Sensitive Troponin I Reference Ranges:Female: 0-51 ng/LMale: 0-76 ng/LTesting performed on [employer] using a homogeneous sandwich chemiluminescent immunoassay based on VirtualU technology. Performed By: #### T ROPHS ####[address] [place], [place] [address] XR CHEST 2 VIEWSon 4 XR CHEST 2 VIEWS Normal [facility] ([place]) .Auto Diffon 09-14-2023 Basophil, Absolute 0.1 10 3/mcL Normal 0.0-0.2 [facility] ([place]) Comment on above: Performed By: #### A RHONDA, GFR, MG, HFP, PRO, CBC, ADIFF, BMP ####[address] [place], [place] [address] Basophils/100 WBC (Bld) 0.9 % Normal 0.0-2.5 [facility] ([place]) Comment on above: Performed By: #### A RHONDA, GFR, MG, HFP, PRO, CBC, ADIFF, BMP ####[address] [place], [place] [address] Eosinophil, Absolute 0.3 10 3/mcL Normal 0.0-0.4 [facility] ([place] Comment on above: Performed By: #### A RHONDA, GFR, MG, HFP, PRO, CBC, ADIFF, BMP ####[address] [place], [place] [address] Eosinophils/100 WBC (Bld) 4.1 % Normal 0.0-7.0 [facility] ([place]) Comment on above: Performed By: #### A RHONDA, GFR, MG, HFP, PRO, CBC, ADIFF, BMP ####[address] [place], [place] [address] Lymphocyte, Absolute 0.8 10 3/mcL Normal 0.8-3.9 [facility] ([place]) Comment on above: Performed By: #### A RHONDA, GFR, MG, HFP, PRO, CBC, ADIFF, BMP ####[address] [place], [place] [address] Lymphocytes/100 WBC (Bld) 11.2 % Normal 10.0-50.0 [facility] ([place] Comment on above: Performed By: #### A RHONDA, GFR, MG, HFP, PRO, CBC, ADIFF, BMP ####[address] [place], [place] [address] Monocyte, Absolute 0.8 10 3/mcL Normal 0.2-1.0 [facility] ([place] Comment on above: Performed By: #### A RHONDA, GFR, MG, HFP, PRO, CBC, ADIFF, BMP ####[address] [place], [place] [address] Monocytes/100 WBC (Bld) 11.3 % Normal 1.7-13.0 [facility] ([place]) Comment on above: Performed By: #### A RHONDA, GFR, MG, HFP, PRO, CBC, ADIFF, BMP ####[address] [place], [place] [address] Neutrophils/100 WBC (Bld) 72.5 % Normal 37.0-80.0 [facility] ([place]) Comment on above: Performed By: #### A RHONDA, GFR, MG, HFP, PRO, CBC, ADIFF, BMP ####[address] [place], [place] [address] .GFRon 09-14-2023 GFR 61 ml/min/1.73sqm Normal [facility] ([place]) Comment on above: Result Comment: GFR Population mean for , Non- Americans Ages 20-29 = 116 mL/min/1.73 sq.m. Ages 30-39 = 107 mL/min/1.73 sq.m. Ages 40-49 = 99 mL/min/1.73 sq.m. Ages 50-59 = 93 mL/min/1.73 sq.m. Ages 60-69 = 85 mL/min/1.73 sq.m. Ages 70+ = 75 mL/min/1.73 sq.m.Chronic Kidney Disease: Less than 60 mL/min/1.73 square metersEnd Stage Renal Disease: Less than 15 mL/min/1.73 square meters Performed By: #### A RHONDA, GFR, MG, HFP, PRO, CBC, ADIFF, BMP ####[address] [place], [place] [address] GFR Non- 50 ml/min/1.73sqm Normal [facility] ([place]) Comment on above: Result Comment: GFR Population mean for , Non- Americans Ages 20-29 = 116 mL/min/1.73 sq.m. Ages 30-39 = 107 mL/min/1.73 sq.m. Ages 40-49 = 99 mL/min/1.73 sq.m. Ages 50-59 = 93 mL/min/1.73 sq.m. Ages 60-69 = 85 mL/min/1.73 sq.m. Ages 70+ = 75 mL/min/1.73 sq.m.Chronic Kidney Disease: Less than 60 mL/min/1.73 square metersEnd Stage Renal Disease: Less than 15 mL/min/1.73 square meters Performed By: #### A RHONDA, GFR, MG, HFP, PRO, CBC, ADIFF, BMP ####[address] [place], [place] [address] .NEUABSon 09-14-2023 Neutrophil, Absolute 5.3 10 3/mcL Normal 2.9-6.2 [facility] ([place] Comment on above: Performed By: #### A RHONDA, GFR, MG, HFP, PRO, CBC, ADIFF, BMP ####[address] [place], [place] [address] BMPon 09-14-2023 BUN/Creatinine Ratio 14 ratio Normal 7-27 [facility] ([place]) Comment on above: Performed By: #### A RHONDA, GFR, MG, HFP, PRO, CBC, ADIFF, BMP ####[address] [place], [place] [address] Calcium [Mass/Vol] 8.6 mg/dL Normal 8.4-10.2 [facility] ([place]) Comment on above: Performed By: #### A RHONDA, GFR, MG, HFP, PRO, CBC, ADIFF, BMP ####[address] [place], [place] [address] Chloride [Moles/Vol] 105 mmol/L Normal 98-107 [facility] ([place]) Comment on above: Performed By: #### A RHONDA, GFR, MG, HFP, PRO, CBC, ADIFF, BMP ####[place] [address] [place], [place] [address] CO2 [Moles/Vol] 31 mmol/L High 22-29 [facility] ([place]) Comment on above: Performed By: #### A RHONDA, GFR, MG, HFP, PRO, CBC, ADIFF, BMP ####[address] [place], [place] [address] Creatinine [Mass/Vol] 1.52 mg/dL High 0.70-1.30 [facility] ([place]) Comment on above: Performed By: #### A RHONDA, GFR, MG, HFP, PRO, CBC, ADIFF, BMP ####[place] [address] [place], [place] [address] Electrolyte Balance 4.0 mEq/L Normal 4.0-15.0 [facility] ([place]) Comment on above: Performed By: #### A RHONDA, GFR, MG, HFP, PRO, CBC, ADIFF, BMP ####[place] [address] [place], [place] [address] Glucose [Mass/Vol] 101 mg/dL Normal 70-105 [facility] ([place] Comment on above: Performed By: #### A RHONDA, GFR, MG, HFP, PRO, CBC, ADIFF, BMP ####[address] [place], [place] [address] Potassium [Moles/Vol] 5.1 mmol/L Normal 3.5-5.1 [facility] ([place]) Comment on above: Performed By: #### A RHONDA, GFR, MG, HFP, PRO, CBC, ADIFF, BMP ####[address] [place], [place] [address] Sodium [Moles/Vol] 140 mmol/L Normal 136-145 [facility] ([place] Comment on above: Performed By: #### A RHONDA, GFR, MG, HFP, PRO, CBC, ADIFF, BMP ####[address] [place], [place] [address] Urea nitrogen [Mass/Vol] 21 mg/dL High 7-18 [facility] ([place]) Comment on above: Performed By: #### A RHONDA, GFR, MG, HFP, PRO, CBC, ADIFF, BMP ####[address] [place], [place] [address] CBCon 09-14-2023 Erythrocyte distribution width (RBC) [Ratio] 17.2 % High 11.5-14.5 [facility] ([place]) Comment on above: Performed By: #### A RHONDA, GFR, MG, HFP, PRO, CBC, ADIFF, BMP ####[address] [place], [place] [address] Hematocrit (Bld) [Volume fraction] 41.3 % Low 42.0-52.0 [facility] ([place] Comment on above: Performed By: #### A RHONDA, GFR, MG, HFP, PRO, CBC, ADIFF, BMP ####[address] [place], [place] [address] Hgb 13.1 G/dL Low 14.0-18.0 [facility] ([place] Comment on above: Performed By: #### A RHONDA, GFR, MG, HFP, PRO, CBC, ADIFF, BMP ####[address] [place], [place] [address] MCH (RBC) [Entitic mass] 31.3 pg High 27.0-31.2 [facility] ([place] Comment on above: Performed By: #### A RHONDA, GFR, MG, HFP, PRO, CBC, ADIFF, BMP ####[address] [place], [place] [address] MCHC 31.8 G/dL Normal 31.8-35.4 [facility] ([place]) Comment on above: Performed By: #### A RHONDA, GFR, MG, HFP, PRO, CBC, ADIFF, BMP ####[address] [place], [place] [address] MCV (RBC) [Entitic vol] 98.2 fL High 80.0-94.0 [facility] ([place]) Comment on above: Performed By: #### A RHONDA, GFR, MG, HFP, PRO, CBC, ADIFF, BMP ####[address] [place], [place] [address] Platelet 224 10 3/mcL Normal 130-400 [facility] ([place]) Comment on above: Performed By: #### A RHONDA, GFR, MG, HFP, PRO, CBC, ADIFF, BMP ####[address] [place], [place] [address] Platelet mean volume (Bld) [Entitic vol] 7.6 fL Normal 7.4-10.4 [facility] ([place]) Comment on above: Performed By: #### A RHONDA, GFR, MG, HFP, PRO, CBC, ADIFF, BMP ####[address] [place], [place] [address] RBC 4.20 10 6/mcL Normal 4.04-6.13 [facility] ([place] Comment on above: Performed By: #### A RHONDA, GFR, MG, HFP, PRO, CBC, ADIFF, BMP ####[address] [place], [place] [address] WBC 7.3 10 3/mcL Normal 4.6-10.8 [facility] ([place] Comment on above: Performed By: #### A RHONDA, GFR, MG, HFP, PRO, CBC, ADIFF, BMP ####[address] [place], [place] [address] HFPon 09-14-2023 Bili Indirect 0.2 mg/dL Normal [facility] ([place] Comment on above: Performed By: #### A RHONDA, GFR, MG, HFP, PRO, CBC, ADIFF, BMP ####[address] [place], [place] [address] Albumin Level 3.1 G/dL Low 3.5-5.0 [facility] ([place] Comment on above: Performed By: #### A RHONDA, GFR, MG, HFP, PRO, CBC, ADIFF, BMP ####[address] [place], [place] [address] Albumin/Globulin [Mass ratio] 0.8 {ratio} Low 1.1-2.5 [facility] ([place] Comment on above: Performed By: #### A RHONDA, GFR, MG, HFP, PRO, CBC, ADIFF, BMP ####[address] [place], [place] [address] ALP [Catalytic activity/Vol] 180 U/L High 40-135 [facility] ([place] Comment on above: Performed By: #### A RHONDA, GFR, MG, HFP, PRO, CBC, ADIFF, BMP ####[address] [place], [place] [address] ALT [Catalytic activity/Vol] 16 U/L Normal 16-63 [facility] ([place] Comment on above: Performed By: #### A RHONDA, GFR, MG, HFP, PRO, CBC, ADIFF, BMP ####[address] [place], [place] [address] AST [Catalytic activity/Vol] 16 U/L Normal 10-40 [facility] ([place]) Comment on above: Performed By: #### A RHONDA, GFR, MG, HFP, PRO, CBC, ADIFF, BMP ####[address] [place], [place] [address] Bili Direct 0.7 mg/dL High 0.0-0.2 [facility] ([place]) Comment on above: Result Comment: Use of this assay is not recommended for patients undergoing treatment with eltrombopag due to the potential for falsely elevated results. Performed By: #### A RHONDA, GFR, MG, HFP, PRO, CBC, ADIFF, BMP ####[address] [place], [place] [address] Bili Total 0.9 mg/dL Normal 0.2-1.0 [facility] ([place]) Comment on above: Result Comment: Use of this assay is not recommended for patients undergoing treatment with eltrombopag due to the potential for falsely elevated results. Performed By: #### A RHODNA, GFR, MG, HFP, PRO, CBC, ADIFF, BMP ####[address] [place], [place] [address] Globulin 3.8 G/dL Normal [facility] ([place]) Comment on above: Performed By: #### A RHONDA, GFR, MG, HFP, PRO, CBC, ADIFF, BMP ####[address] [place], [place] [address] Total Protein 6.9 G/dL Normal 6.4-8.2 [facility] ([place]) Comment on above: Performed By: #### A RHONDA, GFR, MG, HFP, PRO, CBC, ADIFF, BMP ####[address] [place], [place] [address] LABORATORYOrdered By: Leelee Leong on 09-14-2023 LDose Vancomycin:(trough) See eMAR (09/14/23 8:35 AM) Normal AO Chemistry S LABORATORYOrdered By: SYSTEM SYSTEM on 09-14-2023 Vancomycin trough [Mass/Vol] 24.7 ug/mL High 5.0 - 20.0 mcg/mL AO ADM SS Albumin BCP dye [Mass/Vol] 3.1 G/dL Low 3.5 - 5.0 G/dL AO ADM SS Albumin/Globulin [Mass ratio] 0.8 {ratio} Low 1.1 - 2.5 ratio AO ADM SS ALP [Catalytic activity/Vol] 180 U/L High 40 - 135 U/L AO ADM SS ALT With P-5'-P [Catalytic activity/Vol] 16 U/L Normal 16 - 63 U/L AO ADM SS AST With P-5'-P [Catalytic activity/Vol] 16 U/L Normal 10 - 40 U/L AO ADM SS Basophil, Absolute 0.1 103/mcL Normal 0.0 - 0.2 10^3/mcL AO Workflow SS Basophils/100 WBC (Bld) 0.9 % Normal 0.0 - 2.5 % AO Workflow SS Bilirubin [Mass/Vol] 0.9 mg/dL Normal 0.2 - 1 .0 mg/dL AO ADM SS Comment on above: Interpretive Data: U se of this assay is not recommended for patients undergoing treatment with eltrombopag due to the potential for falsely elevated results. Bilirubin.direct [Mass/Vol] 0.7 mg/dL High 0.0 - 0.2 mg/dL AO ADM SS Comment on above: Interpretive Data: U se of this assay is not recommended for patients undergoing treatment with eltrombopag due to the potential for falsely elevated results. Bilirubin.direct [Mass/Vol] 0.2 mg/dL Invalid Interpretation Code AO Chemistry S Eosinophil, Absolute 0.3 103/mcL Normal 0.0 - 0 .4 10^3/mcL AO Workflow SS Eosinophils/100 WBC (Bld) 4.1 % Normal 0.0 - 7.0 % AO Workflow SS Erythrocyte distribution width (RBC) [Ratio] 17.2 % High 11.5 - 14.5 % AO Workflow SS Globulin 3.8 G/dL Invalid Interpretation Code AO ADM SS Hematocrit (Bld) [Volume fraction] 41.3 % Low 42.0 - 52.0 % AO Workflow SS Hemoglobin (Bld) [Mass/Vol] 13.1 G/dL Low 14.0 - 18.0 G/dL AO Workflow SS Lymphocyte, Absolute 0.8 103/mcL Normal 0.8 - 3 .9 10^3/mcL AO Workflow SS Lymphocytes/100 WBC (Bld) 11.2 % Normal 10.0 - 50.0 % AO Workflow SS MCH (RBC) [Entitic mass] 31.3 pg High 27.0 - 31.2 pg AO Workflow SS MCHC 31.8 G/dL Normal 31.8 - 35.4 G/dL AO Workflow SS MCV (RBC) [Entitic vol] 98.2 fL High 80.0 - 94.0 fL AO Workflow SS Monocyte, Absolute 0.8 103/mcL Normal 0.2 - 1.0 10^3/mcL AO Workflow SS Monocytes/100 WBC (Bld) 11.3 % Normal 1.7 - 13.0 % AO Workflow SS Neutrophil, Absolute 5.3 103/mcL Normal 2.9 - 6 .2 10^3/mcL AO Workflow SS Neutrophils/100 WBC (Bld) 72.5 % Normal 37.0 - 80.0 % AO Workflow SS Platelet mean volume (Bld) [Entitic vol] 7.6 fL Normal 7.4 - 10.4 fL AO Workflow SS Platelets (Bld) [#/Vol] 224 103/mcL Normal 130 - 400 10^3/mcL AO Workflow SS Protein [Mass/Vol] 6.9 G/dL Normal 6.4 - 8.2 G/dL AO ADM SS RBC (Bld) [#/Vol] 4.20 106/mcL Normal 4.04 - 6.1 3 10^6/mcL AO Workflow SS WBC (Bld) [#/Vol] 7.3 103/mcL Normal 4.6 - 10.8 10^3/mcL AO Workflow SS MGon 09-14-2023 Magnesium [Mass/Vol] 2.0 mg/dL Normal 1.8-2.4 [facility] ([place]) Comment on above: Performed By: #### A RHONDA, GFR, MG, HFP, PRO, CBC, ADIFF, BMP ####[address] [place], [place] [address] PROon 09-14-2023 PT Coag (PPP) [Time] 25.4 s High 9.0-14.4 [facility] ([place]) Comment on above: Order Comment: order ed secondary to warfarin order Performed By: #### A RHONDA, GFR, MG, HFP, PRO, CBC, ADIFF, BMP ####[address] [place], [place] [address] PT International Ratio 2.2 Normal [facility] ([place]) Comment on above: Order Comment: order ed secondary to warfarin order Result Comment: [employer] [place] [employer] (CHEST, 1992, 102:312S-25S)recommended therapeutic range for oral anticoagulant therapy is:LOW RISK: Prophylaxis of venous thrombosis INR: 2.0-3.0 Treatment of pulmonary embolism 2.0-3.0 Prevention of systemic embolism 2.0-3.0HIGH RISK: Mechanical prosthetic valves 2.5-3.5 Performed By: #### A RHONDA, GFR, MG, HFP, PRO, CBC, ADIFF, BMP ####[address] [place], [place] [address] VANCTon 09-14-2023 LDose Vancomycin:(trough) See eMAR Normal [facility] ([place]) Comment on above: Performed By: #### V ANCT ####[address] [place], [place] [address] Vancomycin Tr 24.7 mcg/mL High 5.0-20.0 [facility] ([place] Comment on above: Performed By: #### V ANCT ####[address] [place], [place] [address] .Auto Diffon 09-13-2023 Basophil, Absolute 0.1 10 3/mcL Normal 0.0-0.2 [facility] ([place]) Comment on above: Performed By: #### B MP, PRO, A1C, CBC, MG, GFR, ADIFF, ANEU ####[address] [place], [place] [address] Basophils/100 WBC (Bld) 1.1 % Normal 0.0-2.5 [facility] ([place]) Comment on above: Performed By: #### B MP, PRO, A1C, CBC, MG, GFR, ADIFF, ANEU ####[address] [place], [place] [address] Eosinophil, Absolute 0.3 10 3/mcL Normal 0.0-0.4 [facility] ([place] Comment on above: Performed By: #### B MP, PRO, A1C, CBC, MG, GFR, ADIFF, ANEU ####[address] [place], [place] [address] Eosinophils/100 WBC (Bld) 3.7 % Normal 0.0-7.0 [facility] ([place] Comment on above: Performed By: #### B MP, PRO, A1C, CBC, MG, GFR, ADIFF, ANEU ####[address] [place], [place] [address] Lymphocyte, Absolute 0.8 10 3/mcL Normal 0.8-3.9 [facility] ([place] Comment on above: Performed By: #### B MP, PRO, A1C, CBC, MG, GFR, ADIFF, ANEU ####[id number] [place], [place] [address] Lymphocytes/100 WBC (Bld) 11.5 % Normal 10.0-50.0 [facility] ([place]) Comment on above: Performed By: #### B MP, PRO, A1C, CBC, MG, GFR, ADIFF, ANEU ####[id number] [place], [place] [address] Monocyte, Absolute 0.7 10 3/mcL Normal 0.2-1.0 [facility] ([place]) Comment on above: Performed By: #### B MP, PRO, A1C, CBC, MG, GFR, ADIFF, ANEU ####[address] [place], [place] [address] Monocytes/100 WBC (Bld) 9.7 % Normal 1.7-13.0 [facility] ([place]) Comment on above: Performed By: #### B MP, PRO, A1C, CBC, MG, GFR, ADIFF, ANEU ####[id number] [place], [place] [address] Neutrophils/100 WBC (Bld) 74.0 % Normal 37.0-80.0 [facility] [facility] ([place]) Comment on above: Performed By: #### B MP, PRO, A1C, CBC, MG, GFR, ADIFF, ANEU ####[address] [place], [place] [address] .GFRon 09-13-2023 GFR Non- 53 ml/min/1.73sqm Normal [facility] ([place]) Comment on above: Result Comment: GFR Population mean for , Non- Americans Ages 20-29 = 116 mL/min/1.73 sq.m. Ages 30-39 = 107 mL/min/1.73 sq.m. Ages 40-49 = 99 mL/min/1.73 sq.m. Ages 50-59 = 93 mL/min/1.73 sq.m. Ages 60-69 = 85 mL/min/1.73 sq.m. Ages 70+ = 75 mL/min/1.73 sq.m.Chronic Kidney Disease: Less than 60 mL/min/1.73 square metersEnd Stage Renal Disease: Less than 15 mL/min/1.73 square meters Performed By: #### B MP, PRO, A1C, CBC, MG, GFR, ADIFF, ANEU ####[address] [place], [place] [address] GFR 64 ml/min/1.73sqm Normal [facility] ([place]) Comment on above: Result Comment: GFR Population mean for , Non- Americans Ages 20-29 = 116 mL/min/1.73 sq.m. Ages 30-39 = 107 mL/min/1.73 sq.m. Ages 40-49 = 99 mL/min/1.73 sq.m. Ages 50-59 = 93 mL/min/1.73 sq.m. Ages 60-69 = 85 mL/min/1.73 sq.m. Ages 70+ = 75 mL/min/1.73 sq.m.Chronic Kidney Disease: Less than 60 mL/min/1.73 square metersEnd Stage Renal Disease: Less than 15 mL/min/1.73 square meters Performed By: #### B MP, PRO, A1C, CBC, MG, GFR, ADIFF, ANEU ####[address] [place], [place] [address] .NEUABSon 09-13-2023 Neutrophil, Absolute 5.1 10 3/mcL Normal 2.9-6.2 [facility] ([place] Comment on above: Performed By: #### B MP, PRO, A1C, CBC, MG, GFR, ADIFF, ANEU ####[address] [place], [place] [address] .Urinalysis Microscopic (AO) on 09-13-2023 UA RBC None Seen Normal None Seen [facility] ([place]) Comment on above: Performed By: #### U A, UAMICAO ####[address] [place], [place] [address] UA Squam Epithelial 0-5 Abnormal None Seen [facility] ([place]) Comment on above: Performed By: #### U A UAMICAO ####[address] [place], [place] [address] UA WBC 0-5 Abnormal None Seen [facility] ([place] Comment on above: Performed By: #### U A UAMICAO ####[address] [place], [place] [address] A1Con 09-13-2023 Glucose [Mass/Vol] 126 mg/dL Normal [facility] ([place]) Comment on above: Result Comment: Isma mated Average Glucose calculated by equation ((28.7xA1C)-46.7) Performed By: #### B MP, PRO, A1C, CBC, MG, GFR, ADIFF, ANEU ####[address] [place], [place] [address] HbA1c (Bld) [Mass fraction] 6.0 % Normal 4.3-6.4 [facility] ([place] Comment on above: Performed By: #### B MP, PRO, A1C, CBC, MG, GFR, ADIFF, ANEU ####[address] [place], [place] [address] BMPon 09-13-2023 BUN/Creatinine Ratio 13 ratio Normal 7-27 [facility] ([place]) Comment on above: Performed By: #### B MP, PRO, A1C, CBC, MG, GFR, ADIFF, ANEU ####[address] [place], [place] [address] Calcium [Mass/Vol] 8.7 mg/dL Normal 8.4-10.2 [facility] ([place] Comment on above: Performed By: #### B MP, PRO, A1C, CBC, MG, GFR, ADIFF, ANEU ####[address] [place], [place] [address] Chloride [Moles/Vol] 105 mmol/L Normal 98-107 [facility] [place] Comment on above: Performed By: #### B MP, PRO, A1C, CBC, MG, GFR, ADIFF, ANEU ####[address] [place], [place] [address] CO2 [Moles/Vol] 26 mmol/L Normal 22-29 [facility] ([place] Comment on above: Performed By: #### B MP, PRO, A1C, CBC, MG, GFR, ADIFF, ANEU ####[address] [place], [place] [address] Creatinine [Mass/Vol] 1.45 mg/dL High 0.70-1.30 [facility] ([place]) Comment on above: Performed By: #### B MP, PRO, A1C, CBC, MG, GFR, ADIFF, ANEU ####[address] [place], [place] [address] Electrolyte Balance 10.0 mEq/L Normal 4.0-15.0 [facility] ([place] Comment on above: Performed By: #### B MP, PRO, A1C, CBC, MG, GFR, ADIFF, ANEU ####[address] [place], [place] [address] Glucose [Mass/Vol] 98 mg/dL Normal 70-105 [facility] ([place] Comment on above: Performed By: #### B MP, PRO, A1C, CBC, MG, GFR, ADIFF, ANEU ####[address] [place], [place] [address] Potassium [Moles/Vol] 4.7 mmol/L Normal 3.5-5.1 [facility] ([place] Comment on above: Performed By: #### B MP, PRO, A1C, CBC, MG, GFR, ADIFF, ANEU ####[address] [place], [place] [address] Sodium [Moles/Vol] 141 mmol/L Normal 136-145 [facility] ([place] Comment on above: Performed By: #### B MP, PRO, A1C, CBC, MG, GFR, ADIFF, ANEU ####[address] [place], [place] [address] Urea nitrogen [Mass/Vol] 19 mg/dL High 7-18 [facility] ([place] Comment on above: Performed By: #### B MP, PRO, A1C, CBC, MG, GFR, ADIFF, ANEU ####[address] [place], [place] [address] CBCon 09-13-2023 Erythrocyte distribution width (RBC) [Ratio] 16.5 % High 11.5-14.5 [facility] ([place]) Comment on above: Performed By: #### B MP, PRO, A1C, CBC, MG, GFR, ADIFF, ANEU ####[address] [place], [place] [address] Hematocrit (Bld) [Volume fraction] 40.5 % Low 42.0-52.0 [facility] ([place] Comment on above: Performed By: #### B MP, PRO, A1C, CBC, MG, GFR, ADIFF, ANEU ####[address] [place], [place] [address] Hgb 13.1 G/dL Low 14.0-18.0 [facility] ([place] Comment on above: Performed By: #### B MP, PRO, A1C, CBC, MG, GFR, ADIFF, ANEU ####[address] [place], [place] [address] MCH (RBC) [Entitic mass] 31.0 pg Normal 27.0-31.2 [facility] ([place] Comment on above: Performed By: #### B MP, PRO, A1C, CBC, MG, GFR, ADIFF, ANEU ####[address] [place], [place] [address] MCHC 32.4 G/dL Normal 31.8-35.4 [facility] ([place] Comment on above: Performed By: #### B MP, PRO, A1C, CBC, MG, GFR, ADIFF, ANEU ####[address] [place], [place] [address] MCV (RBC) [Entitic vol] 95.5 fL High 80.0-94.0 [facility] ([place] Comment on above: Performed By: #### B MP, PRO, A1C, CBC, MG, GFR, ADIFF, ANEU ####[address] [place], [place] [address] Platelet 215 10 3/mcL Normal 130-400 [facility] ([place]) Comment on above: Performed By: #### B MP, PRO, A1C, CBC, MG, GFR, ADIFF, ANEU ####[address] [place], [place] [address] Platelet mean volume (Bld) [Entitic vol] 7.7 fL Normal 7.4-10.4 [facility] ([place] Comment on above: Performed By: #### B MP, PRO, A1C, CBC, MG, GFR, ADIFF, ANEU ####[address] [place], [place] [address] RBC 4.25 10 6/mcL Normal 4.04-6.13 [facility] ([place] Comment on above: Performed By: #### B MP, PRO, A1C, CBC, MG, GFR, ADIFF, ANEU ####[address] [place], [place] [address] WBC 6.9 10 3/mcL Normal 4.6-10.8 [facility] ([place] Comment on above: Performed By: #### B MP, PRO, A1C, CBC, MG, GFR, ADIFF, ANEU ####[address] [place], [place] [address] LABORATORYOrdered By: SYSTEM SYSTEM on 09-13-2023 Basophil, Absolute 0.1 103/mcL Normal 0.0 - 0.2 10^3/mcL AO Workflow SS Basophils/100 WBC (Bld) 1.1 % Normal 0.0 - 2.5 % AO Workflow SS Eosinophil, Absolute 0.3 103/mcL Normal 0.0 - 0 .4 10^3/mcL AO Workflow SS Eosinophils/100 WBC (Bld) 3.7 % Normal 0.0 - 7.0 % AO Workflow SS Erythrocyte distribution width (RBC) [Ratio] 16.5 % High 11.5 - 14.5 % AO Workflow SS Glucose [Mass/Vol] 126 mg/dL Invalid Interpretation Code AO Chemistry S HbA1c (Bld) [Mass fraction] 6.0 % Normal 4.3 - 6.4 % AO ADM SS Hematocrit (Bld) [Volume fraction] 40.5 % Low 42.0 - 52.0 % AO Workflow SS Hemoglobin (Bld) [Mass/Vol] 13.1 G/dL Low 14.0 - 18.0 G/dL AO Workflow SS Lymphocyte, Absolute 0.8 103/mcL Normal 0.8 - 3 .9 10^3/mcL AO Workflow SS Lymphocytes/100 WBC (Bld) 11.5 % Normal 10.0 - 50.0 % AO Workflow SS MCH (RBC) [Entitic mass] 31.0 pg Normal 27.0 - 31.2 pg AO Workflow SS MCHC 32.4 G/dL Normal 31.8 - 35.4 G/dL AO Workflow SS MCV (RBC) [Entitic vol] 95.5 fL High 80.0 - 94.0 fL AO Workflow SS Monocyte, Absolute 0.7 103/mcL Normal 0.2 - 1.0 10^3/mcL AO Workflow SS Monocytes/100 WBC (Bld) 9.7 % Normal 1.7 - 13.0 % AO Workflow SS Neutrophil, Absolute 5.1 103/mcL Normal 2.9 - 6 .2 10^3/mcL AO Workflow SS Neutrophils/100 WBC (Bld) 74.0 % Normal 37.0 - 80.0 % AO Workflow SS Platelet mean volume (Bld) [Entitic vol] 7.7 fL Normal 7.4 - 10.4 fL AO Workflow SS Platelets (Bld) [#/Vol] 215 103/mcL Normal 130 - 400 10^3/mcL AO Workflow SS RBC (Bld) [#/Vol] 4.25 106/mcL Normal 4.04 - 6.1 3 10^6/mcL AO Workflow SS WBC (Bld) [#/Vol] 6.9 103/mcL Normal 4.6 - 10.8 10^3/mcL AO Workflow SS LABORATORYOrdered By: Carmen Rome on 09-13-2023 Appearance (U) Clear (09/13/23 3:09 AM) Normal Clear AO Auto Urine SS Bilirubin Ql (U) Small *ABN* (09/13/23 3:09 AM) Invalid Interpretation Code Negative AO Auto Urine SS Color (U) Yellow (09/13/23 3:09 AM) Normal AO Auto Urine SS Glucose Test strip (U) [Mass/Vol] Negative Normal Negative AO Auto Urine SS Hemoglobin Auto test strip (U) [Mass/Vol] Trace *ABN* (09/13/23 3:09 AM) Invalid Interpretation Code Negative AO Auto Urine SS Ketones Ql (U) Negative Normal Negative AO Auto Ur ine SS UA Leuk Est Negative (09/13/23 3:09 AM) Normal Negative AO Auto Urine SS UA Nitrite Negative (09/13/23 3:09 AM) Normal Negative AO Auto Urine SS UA pH 5.5 (09/13/23 3:09 AM) Normal 5.0 - 8.0 AO Auto Urine SS UA Protein 100 mg/dL Invalid Interpretation Code Negative AO Auto Urine SS UA RBC None Seen /HPF Normal None Seen AO Auto Ur ine SS UA Spec Grav >=1.030 *ABN* (09/13/23 3:09 AM) Invalid Interpretation Code 1.015-1.025 AO Auto Urine SS UA Specimen Type Clean Catch (09/13/23 3:09 AM) Normal AO Auto Urine SS UA Squam Epithelial 0-5 /HPF Invalid Interpretation Code None Seen AO Auto Urine SS UA Urobilinogen 1.0 E.U./dL Normal 0.2-1.0 AO Auto Urine SS WBC LM.HPF (Urine sed) [#/Area] 0-5 /HPF Invalid Interpretation Code None Seen AO Auto Urine SS MGon 09-13-2023 Magnesium [Mass/Vol] 1.7 mg/dL Low 1.8-2.4 [facility] ([place]) Comment on above: Performed By: #### B MP, PRO, A1C, CBC, MG, GFR, ADIFF, ANEU ####[facility] [place], [place] [address] MRSAPCRon 09-13-2023 MRSA (PCR) Not detected Normal Not Detected [facility] ([place]) Comment on above: Result Comment: Note s 1990 Performed By: #### M RSAPCR ####[address] [address] MRSA PCR Int Normal [facility] ([place]) Comment on above: Result Comment: MRSA DNA not detected by Real-Time Polymerase Chain Reaction (PCR). A negative result may be due to intermittent colonization. Colonization may vary depending on patient treatment, patient status, or exposure to high-risk environments.As with all PCR based in vitro diagnostic tests, extremely low levels of target below the limit of detection of the assay may be detected, but results may not be reproducible.See Below Performed By: #### M RSAPCR ####[place] [address] PROon 09-13-2023 PT Coag (PPP) [Time] 22.6 s High 9.0-14.4 [facility] ([place]) Comment on above: Order Comment: order ed secondary to warfarin order Performed By: #### B MP, PRO, A1C, CBC, MG, GFR, ADIFF, ANEU ####[address] [place], [place] [address] PT International Ratio 2.0 Normal [facility] ([place]) Comment on above: Order Comment: order ed secondary to warfarin order Result Comment: The [place] (CHEST, 1992, 102:[id number])recommended therapeutic range for oral anticoagulant therapy is:LOW RISK: Prophylaxis of venous thrombosis INR: 2.0-3.0 Treatment of pulmonary embolism 2.0-3.0 Prevention of systemic embolism 2.0-3.0HIGH RISK: Mechanical prosthetic valves 2.5-3.5 Performed By: #### B MP, PRO, A1C, CBC, MG, GFR, ADIFF, ANEU ####[address] [place], [place] [address] UAon 09-13-2023 Color (U) Yellow Normal [facility] ([place] Comment on above: Performed By: #### U A, UAMICAO ####[address] [place], [place] [address] Glucose (U) [Mass/Vol] Negative Normal Negative [facility] ([place] Comment on above: Performed By: #### U A, UAMICAO ####[address] [place], [place] [address] Ketones Ql (U) Negative Normal Negative [facility] ([place] Comment on above: Performed By: #### U A, UAMICAO ####[address] [place], [place] [address] UA Appear Clear Normal Clear [facility] ([place] Comment on above: Performed By: #### U A, UAMICAO ####[address] [place], [place] [address] UA Bili Small Abnormal Negative [facility] ([place] Comment on above: Performed By: #### U A, UAMICAO ####[address] [place], [place] [address] UA Blood Trace Abnormal Negative [facility] ([place] Comment on above: Performed By: #### U A, UAMICAO ####[address] [place], [place] [address] UA Leuk Est Negative Normal Negative [facility] ([place] Comment on above: Performed By: #### U A, UAMICAO ####[address] [place], [place] [address] UA Nitrite Negative Normal Negative [facility] ([place] Comment on above: Performed By: #### U A, UAMICAO ####[address] [place], [place] [address] UA pH 5.5 Normal 5.0 - 8.0 [facility] ([place] Comment on above: Performed By: #### U A, UAMICAO ####[address] [place], [place] [address] UA Protein 100 mg/dL Abnormal Negative [facility] ([place] Comment on above: Performed By: #### U A, UAMICAO ####[address] [place], [place] [address] UA Spec Grav >=1.030 Abnormal 1.015-1.025 [facility] ([place] Comment on above: Performed By: #### U A, UAMICAO ####[address] [place], [place] [address] UA Specimen Type Clean Catch Normal [facility] ([place] Comment on above: Performed By: #### U A, UAMICAO ####[address] [place], [place] [address] UA Urobilinogen 1.0 E.U./dL Normal 0.2-1.0 [facility] ([place] Comment on above: Performed By: #### U A, UAMICAO ####[address] [place], [place] [address] .Auto DiffOrdered By: SYSTEM SYSTEM on 09-12-2023 Basophil, Absolute 0.1 103/mcL Normal 0.0-0.2 AO Wo rkflow SS Comment on above: Performed By: #### M DW, ANEU, GFR, BMP, ADIFF, CBC ####[address] [place], [place] [address] Basophils/100 WBC (Bld) 1.2 % Normal 0.0-2.5 AO Workflow SS Comment on above: Performed By: #### M DW, ANEU, GFR, BMP, ADIFF, CBC ####[address] [place], [place] [address] Eosinophil, Absolute 0.2 103/mcL Normal 0.0-0.4 AO Workflow SS Comment on above: Performed By: #### M DW, ANEU, GFR, BMP, ADIFF, CBC ####[address] [place], [place] [address] Eosinophils/100 WBC (Bld) 3.0 % Normal 0.0-7.0 AO Workflow SS Comment on above: Performed By: #### M DW, ANEU, GFR, BMP, ADIFF, CBC ####[address] [place], [place] [address] Lymphocyte, Absolute 0.7 103/mcL Low 0.8-3.9 AO Workflow SS Comment on above: Performed By: #### M DW, ANEU, GFR, BMP, ADIFF, CBC ####[address] [place], [place] [address] Lymphocytes/100 WBC (Bld) 9.3 % Low 10.0-50.0 AO Workflow SS Comment on above: Performed By: #### M DW, ANEU, GFR, BMP, ADIFF, CBC ####[address] [place], [place] [address] Monocyte, Absolute 0.4 103/mcL Normal 0.2-1.0 AO Wo rkflow SS Comment on above: Performed By: #### M DW, ANEU, GFR, BMP, ADIFF, CBC ####[address] [place], [place] [address] Monocytes/100 WBC (Bld) 6.1 % Normal 1.7-13.0 AO Workflow SS Comment on above: Performed By: #### M DW, ANEU, GFR, BMP, ADIFF, CBC ####[address] [place], [place] [address] Neutrophils/100 WBC (Bld) 80.4 % High 37.0-80.0 AO Workflow SS Comment on above: Performed By: #### M DW, ANEU, GFR, BMP, ADIFF, CBC ####[address] [place], [place] [address] .GFRon 09-12-2023 GFR 56 ml/min/1.73sqm Normal [facility] ([place]) Comment on above: Result Comment: GFR Population mean for , Non- Americans Ages 20-29 = 116 mL/min/1.73 sq.m. Ages 30-39 = 107 mL/min/1.73 sq.m. Ages 40-49 = 99 mL/min/1.73 sq.m. Ages 50-59 = 93 mL/min/1.73 sq.m. Ages 60-69 = 85 mL/min/1.73 sq.m. Ages 70+ = 75 mL/min/1.73 sq.m.Chronic Kidney Disease: Less than 60 mL/min/1.73 square metersEnd Stage Renal Disease: Less than 15 mL/min/1.73 square meters Performed By: #### M DW, ANEU, GFR, BMP, ADIFF, CBC ####[address] [place], [place] [address] GFR Non- 47 ml/min/1.73sqm Normal [facility] ([place]) Comment on above: Result Comment: GFR Population mean for , Non- Americans Ages 20-29 = 116 mL/min/1.73 sq.m. Ages 30-39 = 107 mL/min/1.73 sq.m. Ages 40-49 = 99 mL/min/1.73 sq.m. Ages 50-59 = 93 mL/min/1.73 sq.m. Ages 60-69 = 85 mL/min/1.73 sq.m. Ages 70+ = 75 mL/min/1.73 sq.m.Chronic Kidney Disease: Less than 60 mL/min/1.73 square metersEnd Stage Renal Disease: Less than 15 mL/min/1.73 square meters Performed By: #### M DW, ANEU, GFR, BMP, ADIFF, CBC ####[address] [place], [place] [address] .MDWon 09-12-2023 Monocyte Distribution Width 17.87 Normal 0.00-20.00 [facility] ([place] Comment on above: Result Comment: For ED adult patients suspected of sepsis, MDW<=20.0 does not rule out sepsis or risk of sepsis Performed By: #### M DW, ANEU, GFR, BMP, ADIFF, CBC ####[address] [place], [place] [address] .NEUABSOrdered By: SYSTEM SY STEM on 09-12-2023 Neutrophil, Absolute 5.7 103/mcL Normal 2.9-6.2 AO Workflow SS Comment on above: Performed By: #### M DW, ANEU, GFR, BMP, ADIFF, CBC ####[address] [place], [place] [address] BMPon 09-12-2023 BUN/Creatinine Ratio 12 ratio Normal 7-27 [facility] ([place] Comment on above: Performed By: #### M DW, ANEU, GFR, BMP, ADIFF, CBC ####[address] [place], [place] [address] Calcium [Mass/Vol] 8.8 mg/dL Normal 8.4-10.2 [facility] ([place] Comment on above: Performed By: #### M DW, ANEU, GFR, BMP, ADIFF, CBC ####[address] [place], [place] [address] Chloride [Moles/Vol] 104 mmol/L Normal 98-107 [facility] ([place] Comment on above: Performed By: #### M DW, ANEU, GFR, BMP, ADIFF, CBC ####[address] [place], [place] [address] CO2 [Moles/Vol] 32 mmol/L High 22-29 [facility] ([place] Comment on above: Performed By: #### M DW, ANEU, GFR, BMP, ADIFF, CBC ####[address] [place], [place] [address] Creatinine [Mass/Vol] 1.62 mg/dL High 0.70-1.30 [facility] ([place]) Comment on above: Performed By: #### M DW, ANEU, GFR, BMP, ADIFF, CBC ####[address] [place], [place] [address] Electrolyte Balance 7.0 mEq/L Normal 4.0-15.0 [facility] ([place] Comment on above: Performed By: #### M DW, ANEU, GFR, BMP, ADIFF, CBC ####[address] [place], [place] [address] Glucose [Mass/Vol] 159 mg/dL High 70-105 [facility] ([place] Comment on above: Performed By: #### M DW, ANEU, GFR, BMP, ADIFF, CBC ####[address] [place], [place] [address] Potassium [Moles/Vol] 4.1 mmol/L Normal 3.5-5.1 [facility] ([place] Comment on above: Performed By: #### M DW, ANEU, GFR, BMP, ADIFF, CBC ####[address] [place], [place] [address] Sodium [Moles/Vol] 143 mmol/L Normal 136-145 [facility] ([place] Comment on above: Performed By: #### M DW, ANEU, GFR, BMP, ADIFF, CBC ####[address] [place], [place] [address] Urea nitrogen [Mass/Vol] 20 mg/dL High 7-18 [facility] ([place] Comment on above: Performed By: #### M DW, ANEU, GFR, BMP, ADIFF, CBC ####[address] [place], [place] [address] CBCOrdered By: SYSTEM SYSTEM on 09-12-2023 Erythrocyte distribution width (RBC) [Ratio] 16.2 % High 11.5-14.5 AO Workflow SS Comment on above: Performed By: #### M DW, ANEU, GFR, BMP, ADIFF, CBC ####[address] [place], [place] [address] Hematocrit (Bld) [Volume fraction] 40.9 % Low 42.0-52.0 AO Workflow SS Comment on above: Performed By: #### M DW, ANEU, GFR, BMP, ADIFF, CBC ####[address] [place], [place] [address] MCH (RBC) [Entitic mass] 31.4 pg High 27.0-31.2 AO Workflow SS Comment on above: Performed By: #### M DW, ANEU, GFR, BMP, ADIFF, CBC ####[address] [place], [place] [address] MCHC 33.0 G/dL Normal 31.8-35.4 AO Workflow SS Comment on above: Performed By: #### M DW, ANEU, GFR, BMP, ADIFF, CBC ####[address] [place] [address] MCV (RBC) [Entitic vol] 95.2 fL High 80.0-94.0 AO Workflow SS Comment on above: Performed By: #### M DW, ANEU, GFR, BMP, ADIFF, CBC ####[address] [place], [place] [address] Platelet mean volume (Bld) [Entitic vol] 7.3 fL Low 7.4-10.4 AO Workflow SS Comment on above: Performed By: #### M DW, ANEU, GFR, BMP, ADIFF, CBC ####[address] [place], [place] [address] CBCon 09-12-2023 Hgb 13.5 G/dL Low 14.0-18.0 [facility] ([place] Comment on above: Performed By: #### M DW, ANEU, GFR, BMP, ADIFF, CBC ####[address] [place], [place] [address] Platelet 240 10 3/mcL Normal 130-400 [facility] ([place] Comment on above: Performed By: #### M DW, ANEU, GFR, BMP, ADIFF, CBC ####[address] [place], [place] [address] RBC 4.30 10 6/mcL Normal 4.04-6.13 [facility] ([place] Comment on above: Performed By: #### M DW, ANEU, GFR, BMP, ADIFF, CBC ####[address] [place], [place] [address] WBC 7.1 10 3/mcL Normal 4.6-10.8 [facility] ([place] Comment on above: Performed By: #### M DW, ANEU, GFR, BMP, ADIFF, CBC ####[address] [place], [place] [address] CT ABD/PELVIS W/ IV CONTRAST ONLYon 09-12-2023 CT ABD/PELVIS W/ IV CONTRAST ONLY Normal [facility] ([place] LABORATORYOrdered By: Ta Quintero on 09-12-2023 MRSA (PCR) Not Detected 1 (09/12/23 8:01 PM) Normal Not Detected Auto Viro/Sero SS Comment on above: Result Comment: Note s 1990 MRSA PCR Int MRSA DNA not detecte d by Real-Time Polymerase Chain Reaction (PCR). A negative result may be due to intermittent colonization. Colonization may vary depending on patient treatment, patient status, or exposure to high-risk environments.As with all PCR based in vitro diagnostic tests, extremely low levels of target below the limit of detection of the assay may be detected, but results may not be reproducible. Invalid Interpretation Code AH Auto Viro/Sero SS LABORATORYOrdered By: SYSTEM SYSTEM on 09-12-2023 Lactate [Moles/Vol] 1.4 mmol/L Normal 0.4 - 2. 0 mmol/L AO ADM SS Hemoglobin (Bld) [Mass/Vol] 13.5 G/dL Low 14.0 - 18.0 G/dL AO Workflow SS Monocyte distribution width Auto (Bld) [Entitic vol] 17.87 1 Normal 0.00 - 20.00 AO Workflow SS Comment on above: Result Comment: For ED adult patients suspected of sepsis, MDW<=20.0 does not rule out sepsis or risk of sepsis Platelets (Bld) [#/Vol] 240 103/mcL Normal 130 - 400 10^3/mcL AO Workflow SS RBC (Bld) [#/Vol] 4.30 106/mcL Normal 4.04 - 6.1 3 10^6/mcL AO Workflow SS WBC (Bld) [#/Vol] 7.1 103/mcL Normal 4.6 - 10.8 10^3/mcL AO Workflow SS LACon 09-12-2023 Lactic Acid Lvl 1.4 mmol/L Normal 0.4-2.0 [facility] ([place] Comment on above: Performed By: #### L AC ####[place] [address] [place], [place] [address] No Panel Informationon 09-11 Microscopic examination of blood, culture Blood Culture: No Growth at 5 days. [facility] PROon 09-12-2023 PT Coag (PPP) [Time] 22.7 s High 9.0-14.4 [facility] ([place] Comment on above: Performed By: #### P RO ####[facility] [place], [place] [address] PT International Ratio 2.0 Normal [facility] ([place] Comment on above: Result Comment: [employer] [place] [employer] (CHEST, 1992, 102:312S-25S)recommended therapeutic range for oral anticoagulant therapy is:LOW RISK: Prophylaxis of venous thrombosis INR: 2.0-3.0 Treatment of pulmonary embolism 2.0-3.0 Prevention of systemic embolism 2.0-3.0HIGH RISK: Mechanical prosthetic valves 2.5-3.5 Performed By: #### P RO ####[address] [place], [place] [address] US SCROTUM CONTENTSon 2023 US SCROTUM CONTENTS Normal [facility] ([place]) CURon 09-02-2023 CUR Normal [facility] ([place]) .Urinalysis Microscopic (AO) on 08-31-2023 UA Bacteria Trace Abnormal [facility] ([place]) Comment on above: Performed By: #### U A, UAMICAO ####[id number] [place], [place] [address] UA RBC LOADED Abnormal None Seen [facility] ([place]) Comment on above: Performed By: #### U A, UAMICAO ####[id number] [place], [place] [address] UA Squam Epithelial 0-5 Abnormal None Seen [facility] ([place]) Comment on above: Performed By: #### U A, UAMICAO ####Diogo [id number] [place], [place] [address] UA WBC None Seen Normal None Seen [facility] ([place]) Comment on above: Performed By: #### U A, UAMICAO ####Diogo [id number] [place] [id number] APTTon 08-31-2023 aPTT Coag (Bld) [Time] 33.2 s Normal 25.0-35.0 [facility] ([place]) Comment on above: Result Comment: For Heparin anticoagulation therapy, the recommendedtherapeutic range is: 45.4-75.9 seconds. Patients on heparin therapy may have an extreme result. Performed By: #### P RO, APTT ####[address]ogo [id number] [place], [place] [address] LABORATORYOrdered By: Thee Black on 08-31-2023 Appearance (U) Cloudy *ABN* (08/31/23 5:14 PM) Invalid Interpretation Code Clear AO Auto Urine SS Bacteria LM.HPF (Urine sed) [#/Area] Trace /HPF Invalid Interpretation Code AO Auto Urine SS Bilirubin Ql (U) Small *ABN* (08/31/23 5:14 PM) Invalid Interpretation Code Negative AO Auto Urine SS Color (U) Red *ABN* (08/31/23 5:14 PM) Invalid Interpretation Code AO Auto Urine SS Glucose Test strip (U) [Mass/Vol] Negative Normal Negative AO Auto Urine SS Hemoglobin Auto test strip (U) [Mass/Vol] Large *ABN* (08/31/23 5:14 PM) Invalid Interpretation Code Negative AO Auto Urine SS Ketones Ql (U) Negative Normal Negative AO Auto Ur ine SS UA Leuk Est Negative (08/31/23 5:14 PM) Normal Negative AO Auto Urine SS UA Nitrite Positive *ABN* (08/31/23 5:14 PM) Invalid Interpretation Code Negative AO Auto Urine SS UA pH 6.0 (08/31/23 5:14 PM) Normal 5.0 - 8.0 AO Auto Urine SS UA Protein >=300 mg/dL Invalid Interpretation Code Negative AO Auto Urine SS UA RBC LOADED /HPF Invalid Interpretation Code None Seen AO Auto Urine SS UA Spec Grav >=1.030 *ABN* (08/31/23 5:14 PM) Invalid Interpretation Code 1.015-1.025 AO Auto Urine SS UA Specimen Type Clean Catch (08/31/23 5:14 PM) Normal AO Auto Urine SS UA Squam Epithelial 0-5 /HPF Invalid Interpretation Code None Seen AO Auto Urine SS UA Urobilinogen >=8.0 E.U./dL Invalid Interpretation Code 0.2-1.0 AO Auto Urine SS WBC LM.HPF (Urine sed) [#/Area] None Seen /HPF Normal None Seen AO Auto Urine SS LABORATORYOrdered By: Ta Starkey on 08-31-2023 aPTT Coag (PPP) [Time] 33.2 s Normal 25.0 - 35.0 seconds AO [facility] SS Comment on above: Interpretive Data: F or Heparin anticoagulation therapy, the recommended therapeutic range is: 45.4-75.9 seconds. Patients on heparin therapy may have an extreme result. INR Coag (PPP) [Relative time] 1.5 {INR} Invalid Interpretation Code AO [facility] SS Comment on above: Interpretive Data: Cindy briggs [employer] [employer] (CHEST, 1991, 102:[id number]) recommended therapeutic range for oral anticoagulant therapy is: LOW RISK: Prophylaxis of venous thrombosis INR: 2.0-3.0 Treatment of pulmonary embolism 2.0-3.0 Prevention of systemic embolism 2.0-3.0 HIGH RISK: Mechanical prosthetic valves 2.5-3.5 PT Coag (PPP) [Time] 17.3 s High 9.0 - 1 4.4 seconds AO [facility] SS PROon 08-31-2023 PT Coag (PPP) [Time] 17.3 s High 9.0-14.4 [facility] ([place]) Comment on above: Performed By: #### P RO, APTT ####Diogo [id number] [place] [phone] PT International Ratio 1.5 Normal [facility] ([place]) Comment on above: Result Comment: [employer] [place] [employer] (CHEST, 1992, 102:[id number])recommended therapeutic range for oral anticoagulant therapy is:LOW RISK: Prophylaxis of venous thrombosis INR: 2.0-3.0 Treatment of pulmonary embolism 2.0-3.0 Prevention of systemic embolism 2.0-3.0HIGH RISK: Mechanical prosthetic valves 2.5-3.5 Performed By: #### P RO, APTT ####[address] [place] [id number] UAon 08-31-2023 Color (U) Red Abnormal [facility] ([place]) Comment on above: Performed By: #### U A, UAMICAO ####[address] [place] [address] Glucose (U) [Mass/Vol] Negative Normal Negative [facility] ([place]) Comment on above: Performed By: #### U A, UAMICAO ####[address] [place] [address] Ketones Ql (U) Negative Normal Negative [facility] ([place]) Comment on above: Performed By: #### U A, UAMICAO ####[address] [place] [address] UA Appear Cloudy Abnormal Clear [facility] ([place]) Comment on above: Performed By: #### U A, UAMICAO ####[address] [place] [address] UA Bili Small Abnormal Negative [facility] ([place]) Comment on above: Performed By: #### U A, UAMICAO ####[address] [place] [phone] UA Blood Large Abnormal Negative [facility] ([place]) Comment on above: Performed By: #### U A, UAMICAO ####[address] [place], [place] [address] UA Leuk Est Negative Normal Negative [facility] ([place]) Comment on above: Performed By: #### U A, UAMICAO ####[address] [place], [place] [address] UA Nitrite Positive Abnormal Negative [facility] ([place]) Comment on above: Performed By: #### U A UAMICAO ####[address] [place] [phone] UA pH 6.0 Normal 5.0 - 8.0 [facility] ([place]) Comment on above: Performed By: #### U A, UAMICAO ####[id number] [place] [address] UA Protein >=300 Abnormal Negative [facility] ([place]) Comment on above: Performed By: #### U A UAMICAO ####[address] [place] [address] UA Spec Grav >=1.030 Abnormal 1.015-1.025 [facility] ([place]) Comment on above: Performed By: #### U A UAMICAO ####[id number] [place] [address] UA Specimen Type Clean Catch Normal [facility] ([place]) Comment on above: Performed By: #### U A UAMICAO ####Diogo [id number] [place] [address] UA Urobilinogen >=8.0 Abnormal 0.2-1.0 [facility] ([place]) Comment on above: Performed By: #### U A, UAMICAO ####Diogo [id number] [place] [phone] .Auto Diffon 08-24-2023 Basophil, Absolute 0.1 10 3/mcL Normal 0.0-0.3 [facility] ([place]) Comment on above: Performed By: #### C BC, ANEU, GFR, LD, ADIFF, CMP ####[address] [address] Basophils/100 WBC (Bld) 0.9 % Normal 0.0-2.5 [facility] ([place]) Comment on above: Performed By: #### C BC, ANEU, GFR, LD, ADIFF, CMP ####[address] [address] Eosinophil, Absolute 0.2 10 3/mcL Normal 0.0-0.7 [facility] ([place]) Comment on above: Performed By: #### C BC, ANEU, GFR, LD, ADIFF, CMP ####[address] [address] Eosinophils/100 WBC (Bld) 3.9 % Normal 0.0-6.0 [facility] ([place]) Comment on above: Performed By: #### C BC, ANEU, GFR, LD, ADIFF, CMP ####[address] [address] Lymphocyte, Absolute 0.7 10 3/mcL Low 0.9-4.3 [facility] ([place]) Comment on above: Performed By: #### C BC, ANEU, GFR, LD, ADIFF, CMP ####[address] [address] Lymphocytes/100 WBC (Bld) 12.0 % Low 20.0-40.0 [facility] ([place]) Comment on above: Performed By: #### C BC, ANEU, GFR, LD, ADIFF, CMP ####[address] [address] Monocyte, Absolute 0.6 10 3/mcL Normal 0.1-1.4 [facility] ([place]) Comment on above: Performed By: #### C BC, ANEU, GFR, LD, ADIFF, CMP ####[address] [address] Monocytes/100 WBC (Bld) 10.1 % Normal 2.0-13.0 [facility] ([place]) Comment on above: Performed By: #### C BC, ANEU, GFR, LD, ADIFF, CMP ####[address] [address] Neutrophils/100 WBC (Bld) 73.1 % Normal 50.0-75.0 [facility] ([place]) Comment on above: Performed By: #### C BC, ANEU, GFR, LD, ADIFF, CMP ####[address] [address] .GFRon 08-24-2023 GFR >60 Normal [facility] ([place]) Comment on above: Result Comment: GFR Population mean for , Non- Americans Ages 20-29 = 116 mL/min/1.73 sq.m. Ages 30-39 = 107 mL/min/1.73 sq.m. Ages 40-49 = 99 mL/min/1.73 sq.m. Ages 50-59 = 93 mL/min/1.73 sq.m. Ages 60-69 = 85 mL/min/1.73 sq.m. Ages 70+ = 75 mL/min/1.73 sq.m.Chronic Kidney Disease: Less than 60 mL/min/1.73 square metersEnd Stage Renal Disease: Less than 15 mL/min/1.73 square meters Performed By: #### C BC, ANEU, GFR, LD, ADIFF, CMP ####[address] [address] GFR Non- >60 Normal [facility] ([place]) Comment on above: Result Comment: GFR Population mean for , Non- Americans Ages 20-29 = 116 mL/min/1.73 sq.m. Ages 30-39 = 107 mL/min/1.73 sq.m. Ages 40-49 = 99 mL/min/1.73 sq.m. Ages 50-59 = 93 mL/min/1.73 sq.m. Ages 60-69 = 85 mL/min/1.73 sq.m. Ages 70+ = 75 mL/min/1.73 sq.m.Chronic Kidney Disease: Less than 60 mL/min/1.73 square metersEnd Stage Renal Disease: Less than 15 mL/min/1.73 square meters Performed By: #### C BC, ANEU, GFR, LD, ADIFF, CMP ####[address] [address] .NEUABSon 08-24-2023 Neutrophil, Absolute 4.4 10 3/mcL Normal 2.3-8.1 [facility] ([place]) Comment on above: Performed By: #### C BC, ANEU, GFR, LD, ADIFF, CMP ####[address] [address] CBCon 08-24-2023 Erythrocyte distribution width (RBC) [Ratio] 16.6 % High 11.5-15.5 [facility] ([place]) Comment on above: Performed By: #### C BC, ANEU, GFR, LD, ADIFF, CMP ####[place] [address] Hematocrit (Bld) [Volume fraction] 42.2 % Normal 40.0-52.0 [facility] ([place]) Comment on above: Performed By: #### C BC, ANEU, GFR, LD, ADIFF, CMP ####[place] [address] Hgb 14.0 G/dL Normal 13.0-17.5 [facility] ([place]) Comment on above: Performed By: #### C BC, ANEU, GFR, LD, ADIFF, CMP ####[place] [address] MCH (RBC) [Entitic mass] 31.6 pg Normal 27.0-33.0 [facility] ([place]) Comment on above: Performed By: #### C BC, ANEU, GFR, LD, ADIFF, CMP ####[place] [address] MCHC 33.2 G/dL Normal 32.0-36.0 [facility] ([place]) Comment on above: Performed By: #### C BC, ANEU, GFR, LD, ADIFF, CMP ####[place] [address] MCV (RBC) [Entitic vol] 95.3 fL Normal 81.0-100.0 [facility] ([place]) Comment on above: Performed By: #### C BC, ANEU, GFR, LD, ADIFF, CMP ####[place] [address] Platelet 221 10 3/mcL Normal 150-450 [facility] ([place]) Comment on above: Performed By: #### C BC, ANEU, GFR, LD, ADIFF, CMP ####[place] [address] Platelet mean volume (Bld) [Entitic vol] 7.3 fL Normal 6.4-10.5 [facility] ([place]) Comment on above: Performed By: #### C BC, ANEU, GFR, LD, ADIFF, CMP ####[address] [address] RBC 4.43 10 6/mcL Low 4.50-6.00 [facility] ([place]) Comment on above: Performed By: #### C BC, ANEU, GFR, LD, ADIFF, CMP ####[place] [address] WBC 6.0 10 3/mcL Normal 4.5-10.8 [facility] ([place]) Comment on above: Performed By: #### C BC, ANEU, GFR, LD, ADIFF, CMP ####[place] [address] CMPon 08-24-2023 Albumin Level 3.3 G/dL Normal 3.2-4.8 [facility] ([place]) Comment on above: Performed By: #### C BC, ANEU, GFR, LD, ADIFF, CMP ####[place] [address] Albumin/Globulin [Mass ratio] 1.0 {ratio} Normal 0.9-1.6 [facility] ([place]) Comment on above: Performed By: #### C BC, ANEU, GFR, LD, ADIFF, CMP ####[place] [address] ALP [Catalytic activity/Vol] 180 U/L High 38-126 [facility] ([place]) Comment on above: Performed By: #### C BC, ANEU, GFR, LD, ADIFF, CMP ####[address] [address] ALT [Catalytic activity/Vol] 16 U/L Normal 12-55 [facility] ([place]) Comment on above: Performed By: #### C BC, ANEU, GFR, LD, ADIFF, CMP ####[place] [address] AST [Catalytic activity/Vol] 21 U/L Normal 8-34 [facility] ([place]) Comment on above: Performed By: #### C BC, ANEU, GFR, LD, ADIFF, CMP ####[address] [address] Bili Total 1.30 mg/dL High 0.20-1.20 [facility] ([place]) Comment on above: Result Comment: Use of this assay is not recommended for patients undergoing treatment with eltrombopag due to the potential for falsely elevated results. Performed By: #### C BC, ANEU, GFR, LD, ADIFF, CMP ####[address] [address] BUN/Creatinine Ratio 17.1 ratio Normal 10.0-22.0 [facility] ([place]) Comment on above: Performed By: #### C BC, ANEU, GFR, LD, ADIFF, CMP ####[address] [address] Calcium [Mass/Vol] 8.5 mg/dL Low 8.7-10.4 [facility] ([place]) Comment on above: Performed By: #### C BC, ANEU, GFR, LD, ADIFF, CMP ####[address] [address] Chloride [Moles/Vol] 106 mmol/L Normal 98-110 [facility] ([place]) Comment on above: Performed By: #### C BC, ANEU, GFR, LD, ADIFF, CMP ####[address] [address] CO2 [Moles/Vol] 28 mmol/L Normal 22-32 [facility] ([place]) Comment on above: Performed By: #### C BC, ANEU, GFR, LD, ADIFF, CMP ####[address] [address] Creatinine [Mass/Vol] 1.23 mg/dL Normal 0.60-1.40 [facility] ([place]) Comment on above: Performed By: #### C BC, ANEU, GFR, LD, ADIFF, CMP ####[address] [address] Electrolyte Balance 6.0 mEq/L Normal 4.0-15.0 [facility] ([place]) Comment on above: Performed By: #### C BC, ANEU, GFR, LD, ADIFF, CMP ####[address] [address] Globulin 3.3 G/dL Normal 1.5-3.8 [facility] ([place]) Comment on above: Performed By: #### C BC, ANEU, GFR, LD, ADIFF, CMP ####[address] [address] Glucose [Mass/Vol] 139 mg/dL High 70-110 [facility] ([place]) Comment on above: Performed By: #### C BC, ANEU, GFR, LD, ADIFF, CMP ####[address] [address] Potassium [Moles/Vol] 4.4 mmol/L Normal 3.5-5.0 [facility] ([place]) Comment on above: Performed By: #### C BC, ANEU, GFR, LD, ADIFF, CMP ####[place] [address] Sodium [Moles/Vol] 140 mmol/L Normal 136-145 [facility] ([place]) Comment on above: Performed By: #### C BC, ANEU, GFR, LD, ADIFF, CMP ####[place] [address] Total Protein 6.6 G/dL Normal 5.7-8.2 [facility] ([place]) Comment on above: Result Comment: No te - New Reference Range in effect 19 Performed By: #### C BC, ANEU, GFR, LD, ADIFF, CMP ####[address] [address] Urea nitrogen [Mass/Vol] 21.0 mg/dL Normal 8.0-22.0 [facility] ([place]) Comment on above: Performed By: #### C BC, ANEU, GFR, LD, ADIFF, CMP ####[address] [address] LABORATORYOrdered By: SYSTEM SYSTEM on 07-11-2024 Albumin BCP dye [Mass/Vol] 3.3 G/dL Normal 3.2 - 4.8 G/dL ADM SS Albumin/Globulin [Mass ratio] 1.0 {ratio} Normal 0.9 - 1.6 ratio AH ADM SS ALP [Catalytic activity/Vol] 180 U/L High 38 - 126 U/L ADM SS ALT No additional P-5'-P [Catalytic activity/Vol] 16 U/L Normal 12 - 55 U/L ADM SS AST [Catalytic activity/Vol] 21 U/L Normal 8 - 34 U/L ADM SS Basophils (Bld) [#/Vol] 0.1 103/mcL Normal 0.0 - 0.3 10^3/mcL Workflow SS Basophils/100 WBC (Bld) 0.9 % Normal 0.0 - 2.5 % Workflow SS Bilirubin [Mass/Vol] 1.30 mg/dL High 0.20 - 1.20 mg/dL ADM SS Comment on above: Interpretive Data: U se of this assay is not recommended for patients undergoing treatment with eltrombopag due to the potential for falsely elevated results. Calcium [Mass/Vol] 8.5 mg/dL Low 8.7 - 10. 4 mg/dL ADM SS Chloride [Moles/Vol] 106 mmol/L Normal 98 - 11 0 mEq/L ADM SS CO2 [Moles/Vol] 28 mmol/L Normal 22 - 32 mEq/L ADM SS Creatinine [Mass/Vol] 1.23 mg/dL Normal 0.60 - 1.40 mg/dL ADM SS Electrolyte Balance 6.0 mEq/L Normal 4.0 - 15 .0 mEq/L ADM SS Eosinophils (Bld) [#/Vol] 0.2 103/mcL Normal 0.0 - 0.7 10^3/mcL Workflow SS Eosinophils/100 WBC (Bld) 3.9 % Normal 0.0 - 6.0 % Workflow SS Erythrocyte distribution width (RBC) [Ratio] 16.6 % High 11.5 - 15.5 % Workflow SS GFR/1.73 sq M.predicted among blacks MDRD (S/P/Bld) [Vol rate/Area] ml/min/1.73sqm Invalid Interpretation Code ADM SS Comment on above: Interpretive Data: GFR Population mean for , Non- Americans Ages 20-29 = 116 mL/min/1.73 sq.m. Ages 30-39 = 107 mL/min/1.73 sq.m. Ages 40-49 = 99 mL/min/1.73 sq.m. Ages 50-59 = 93 mL/min/1.73 sq.m. Ages 60-69 = 85 mL/min/1.73 sq.m. Ages 70+ = 75 mL/min/1.73 sq.m. Chronic Kidney Disease: Less than 60 mL/min/1.73 square meters End Stage Renal Disease: Less than 15 mL/min/1.73 square meters GFR/1.73 sq M.predicted among non-blacks MDRD (S/P/Bld) [Vol rate/Area] ml/min/1.73sqm Invalid Interpretation Code ADM SS Comment on above: Interpretive Data: GFR Population mean for , Non- Americans Ages 20-29 = 116 mL/min/1.73 sq.m. Ages 30-39 = 107 mL/min/1.73 sq.m. Ages 40-49 = 99 mL/min/1.73 sq.m. Ages 50-59 = 93 mL/min/1.73 sq.m. Ages 60-69 = 85 mL/min/1.73 sq.m. Ages 70+ = 75 mL/min/1.73 sq.m. Chronic Kidney Disease: Less than 60 mL/min/1.73 square meters End Stage Renal Disease: Less than 15 mL/min/1.73 square meters Globulin 3.3 G/dL Normal 1.5 - 3.8 G/dL ADM SS Glucose [Mass/Vol] 139 mg/dL High 70 - 110 mg/dL ADM SS Hematocrit (Bld) [Volume fraction] 42.2 % Normal 40.0 - 52.0 % Workflow SS Hemoglobin (Bld) [Mass/Vol] 14.0 G/dL Normal 13.0 - 17.5 G/dL Workflow SS LDH Lactate to pyruvate reaction [Catalytic activity/Vol] 173 1 Normal 120 - 246 U/L ADM SS Lymphocytes (Bld) [#/Vol] 0.7 103/mcL Low 0.9 - 4.3 10^3/mcL Workflow SS Lymphocytes/100 WBC (Bld) 12.0 % Low 20.0 - 40.0 % AH Workflow SS MCH (RBC) [Entitic mass] 31.6 pg Normal 27.0 - 33.0 pg AH Workflow SS MCHC 33.2 G/dL Normal 32.0 - 36.0 G/dL AH Workflow SS MCV (RBC) [Entitic vol] 95.3 fL Normal 81.0 - 100.0 fL AH Workflow SS Monocytes (Bld) [#/Vol] 0.6 103/mcL Normal 0.1 - 1.4 10^3/mcL AH Workflow SS Monocytes/100 WBC (Bld) 10.1 % Normal 2.0 - 13.0 % AH Workflow SS Neutrophils (Bld) [#/Vol] 4.4 103/mcL Normal 2.3 - 8.1 10^3/mcL AH Workflow SS Neutrophils/100 WBC (Bld) 73.1 % Normal 50.0 - 75.0 % AH Workflow SS Platelet mean volume (Bld) [Entitic vol] 7.3 fL Normal 6.4 - 10.5 fL AH Workflow SS Platelets (Bld) [#/Vol] 221 103/mcL Normal 150 - 450 10^3/mcL AH Workflow SS Potassium [Moles/Vol] 4.4 mmol/L Normal 3.5 - 5.0 mEq/L AH ADM SS Protein [Mass/Vol] 6.6 G/dL Normal 5.7 - 8.2 G/dL AH ADM SS Comment on above: Interpretive Data: * *Note - New Reference Range in effect 19 RBC (Bld) [#/Vol] 4.43 106/mcL Low 4.50 - 6.0 0 10^6/mcL AH Workflow SS Sodium [Moles/Vol] 140 mmol/L Normal 136 - 145 mEq/L AH ADM SS Urea nitrogen [Mass/Vol] 21.0 mg/dL Normal 8.0 - 22.0 mg/dL AH ADM SS Urea nitrogen/Creatinine [Mass ratio] 17.1 ratio Normal 10.0 - 22.0 ratio AH ADM SS WBC (Bld) [#/Vol] 6.0 103/mcL Normal 4.5 - 10.8 10^3/mcL AH Workflow SS LDHon 08-24-2023 LDH 173 U/L Normal 120-246 [facility] ([place]) Comment on above: Performed By: #### C BC, ANEU, GFR, LD, ADIFF, CMP ####[address] [address] .Auto Diffon 07-27-2023 Basophil, Absolute 0.1 10 3/mcL Normal 0.0-0.3 [facility] ([place]) Comment on above: Performed By: #### C MP, ADIFF, ANEU, LD, FT4, CBC, JUANCARLOS, TSH, GFR, FT3 ####[address] [address] Basophils/100 WBC (Bld) 0.9 % Normal 0.0-2.5 [facility] ([place]) Comment on above: Performed By: #### C MP, ADIFF, ANEU, LD, FT4, CBC, JUANCARLOS, TSH, GFR, FT3 ####[place] [address] Eosinophil, Absolute 0.4 10 3/mcL Normal 0.0-0.7 [facility] ([place]) Comment on above: Performed By: #### C MP, ADIFF, ANEU, LD, FT4, CBC, JUANCARLOS, TSH, GFR, FT3 ####[address] [address] Eosinophils/100 WBC (Bld) 5.4 % Normal 0.0-6.0 [facility] ([place] Comment on above: Performed By: #### C MP, ADIFF, ANEU, LD, FT4, CBC, JUANCARLOS, TSH, GFR, FT3 ####[address] [address] Lymphocyte, Absolute 1.0 10 3/mcL Normal 0.9-4.3 [facility] ([place] Comment on above: Performed By: #### C MP, ADIFF, ANEU, LD, FT4, CBC, JUANCARLOS, TSH, GFR, FT3 ####[address] [address] Lymphocytes/100 WBC (Bld) 14.9 % Low 20.0-40.0 [facility] ([place] Comment on above: Performed By: #### C MP, ADIFF, ANEU, LD, FT4, CBC, JUANCARLOS, TSH, GFR, FT3 ####[address] [address] Monocyte, Absolute 0.7 10 3/mcL Normal 0.1-1.4 [facility] ([place]) Comment on above: Performed By: #### C MP, ADIFF, ANEU, LD, FT4, CBC, JUANCARLOS, TSH, GFR, FT3 ####[address] [address] Monocytes/100 WBC (Bld) 10.4 % Normal 2.0-13.0 [facility] ([place] Comment on above: Performed By: #### C MP, ADIFF, ANEU, LD, FT4, CBC, JUANCARLOS, TSH, GFR, FT3 ####[address] [address] Neutrophils/100 WBC (Bld) 68.4 % Normal 50.0-75.0 [facility] ([place] Comment on above: Performed By: #### C MP, ADIFF, ANEU, LD, FT4, CBC, JUANCARLOS, TSH, GFR, FT3 ####[address] [address] .GFRon 07-27-2023 GFR >60 Normal [facility] ([place]) Comment on above: Result Comment: GFR Population mean for , Non- Americans Ages 20-29 = 116 mL/min/1.73 sq.m. Ages 30-39 = 107 mL/min/1.73 sq.m. Ages 40-49 = 99 mL/min/1.73 sq.m. Ages 50-59 = 93 mL/min/1.73 sq.m. Ages 60-69 = 85 mL/min/1.73 sq.m. Ages 70+ = 75 mL/min/1.73 sq.m.Chronic Kidney Disease: Less than 60 mL/min/1.73 square metersEnd Stage Renal Disease: Less than 15 mL/min/1.73 square meters Performed By: #### C MP, ADIFF, ANEU, LD, FT4, CBC, JUANCARLOS, TSH, GFR, FT3 ####[address] [address] GFR Non- >60 Normal [facility] ([place]) Comment on above: Result Comment: GFR Population mean for , Non- Americans Ages 20-29 = 116 mL/min/1.73 sq.m. Ages 30-39 = 107 mL/min/1.73 sq.m. Ages 40-49 = 99 mL/min/1.73 sq.m. Ages 50-59 = 93 mL/min/1.73 sq.m. Ages 60-69 = 85 mL/min/1.73 sq.m. Ages 70+ = 75 mL/min/1.73 sq.m.Chronic Kidney Disease: Less than 60 mL/min/1.73 square metersEnd Stage Renal Disease: Less than 15 mL/min/1.73 square meters Performed By: #### C MP, ADIFF, ANEU, LD, FT4, CBC, JUANCARLOS, TSH, GFR, FT3 ####[place] [address] .NEUABSon 07-27-2023 Neutrophil, Absolute 4.7 10 3/mcL Normal 2.3-8.1 [facility] ([place]) Comment on above: Performed By: #### C MP, ADIFF, ANEU, LD, FT4, CBC, JUANCARLOS, TSH, GFR, FT3 ####[place] [address] CBCon 07-27-2023 Erythrocyte distribution width (RBC) [Ratio] 16.7 % High 11.5-15.5 [facility] ([place] Comment on above: Performed By: #### C MP, ADIFF, ANEU, LD, FT4, CBC, JUANCARLOS, TSH, GFR, FT3 ####[place] [address] Hematocrit (Bld) [Volume fraction] 42.9 % Normal 40.0-52.0 [facility] ([place] Comment on above: Performed By: #### C MP, ADIFF, ANEU, LD, FT4, CBC, JUANCARLOS, TSH, GFR, FT3 ####[place] [address] Hgb 14.3 G/dL Normal 13.0-17.5 [facility] ([place]) Comment on above: Performed By: #### C MP, ADIFF, ANEU, LD, FT4, CBC, JUANCARLOS, TSH, GFR, FT3 ####[place] [address] MCH (RBC) [Entitic mass] 31.6 pg Normal 27.0-33.0 [facility] ([place]) Comment on above: Performed By: #### C MP, ADIFF, ANEU, LD, FT4, CBC, JUANCARLOS, TSH, GFR, FT3 ####[place] [address] MCHC 33.3 G/dL Normal 32.0-36.0 [facility] ([place] Comment on above: Performed By: #### C MP, ADIFF, ANEU, LD, FT4, CBC, JUANCARLOS, TSH, GFR, FT3 ####[place] [address] MCV (RBC) [Entitic vol] 94.8 fL Normal 81.0-100.0 [facility] ([place] Comment on above: Performed By: #### C MP, ADIFF, ANEU, LD, FT4, CBC, JUANCARLOS, TSH, GFR, FT3 ####[place] [address] Platelet 229 10 3/mcL Normal 150-450 [facility] ([place]) Comment on above: Performed By: #### C MP, ADIFF, ANEU, LD, FT4, CBC, JUANCARLOS, TSH, GFR, FT3 ####[place] [address] Platelet mean volume (Bld) [Entitic vol] 7.3 fL Normal 6.4-10.5 [facility] ([place]) Comment on above: Performed By: #### C MP, ADIFF, ANEU, LD, FT4, CBC, JUANCARLOS, TSH, GFR, FT3 ####[place] [address] RBC 4.52 10 6/mcL Normal 4.50-6.00 [facility] ([place]) Comment on above: Performed By: #### C MP, ADIFF, ANEU, LD, FT4, CBC, JUANCARLOS, TSH, GFR, FT3 ####[address] [address] WBC 6.9 10 3/mcL Normal 4.5-10.8 [facility] ([place]) Comment on above: Performed By: #### C MP, ADIFF, ANEU, LD, FT4, CBC, JUANCARLOS, TSH, GFR, FT3 ####[address] [address] CMPon 07-27-2023 Albumin Level 3.3 G/dL Normal 3.2-4.8 [facility] ([place]) Comment on above: Performed By: #### C MP, ADIFF, ANEU, LD, FT4, CBC, JUANCARLOS, TSH, GFR, FT3 ####[place] [id number] Albumin/Globulin [Mass ratio] 0.9 {ratio} Normal 0.9-1.6 [facility] ([place]) Comment on above: Performed By: #### C MP, ADIFF, ANEU, LD, FT4, CBC, JUANCARLOS, TSH, GFR, FT3 ####[place] [address] ALP [Catalytic activity/Vol] 200 U/L High 38-126 [facility] [facility] ([place]) Comment on above: Performed By: #### C MP, ADIFF, ANEU, LD, FT4, CBC, JUANCARLOS, TSH, GFR, FT3 ####[address] [address] ALT [Catalytic activity/Vol] 16 U/L Normal 12-55 [facility] ([place]) Comment on above: Performed By: #### C MP, ADIFF, ANEU, LD, FT4, CBC, JUANCARLOS, TSH, GFR, FT3 ####[address] [address] AST [Catalytic activity/Vol] 18 U/L Normal 8-34 [facility] ([place] Comment on above: Performed By: #### C MP, ADIFF, ANEU, LD, FT4, CBC, JUANCARLOS, TSH, GFR, FT3 ####[place] [id number] Bili Total 0.90 mg/dL Normal 0.20-1.20 [facility] ([place]) Comment on above: Result Comment: Use of this assay is not recommended for patients undergoing treatment with eltrombopag due to the potential for falsely elevated results. Performed By: #### C MP, ADIFF, ANEU, LD, FT4, CBC, JUANCARLOS, TSH, GFR, FT3 ####[place] [address] BUN/Creatinine Ratio 9.7 ratio Low 10.0-22.0 [facility] ([place] Comment on above: Performed By: #### C MP, ADIFF, ANEU, LD, FT4, CBC, JUANCARLOS, TSH, GFR, FT3 ####[place] [address] Calcium [Mass/Vol] 8.6 mg/dL Low 8.7-10.4 [facility] ([place] Comment on above: Performed By: #### C MP, ADIFF, ANEU, LD, FT4, CBC, JUANCARLOS, TSH, GFR, FT3 ####[place] [address] Chloride [Moles/Vol] 105 mmol/L Normal 98-110 [facility] ([place] Comment on above: Performed By: #### C MP, ADIFF, ANEU, LD, FT4, CBC, JUANCARLOS, TSH, GFR, FT3 ####[place] [address] CO2 [Moles/Vol] 30 mmol/L Normal 22-32 [facility] ([place] Comment on above: Performed By: #### C MP, ADIFF, ANEU, LD, FT4, CBC, JUANCARLOS, TSH, GFR, FT3 ####[place] [address] Creatinine [Mass/Vol] 1.24 mg/dL Normal 0.60-1.40 [facility] ([place]) Comment on above: Performed By: #### C MP, ADIFF, ANEU, LD, FT4, CBC, JUANCARLOS, TSH, GFR, FT3 ####[place] [address] Electrolyte Balance 5.0 mEq/L Normal 4.0-15.0 [facility] ([place]) Comment on above: Performed By: #### C MP, ADIFF, ANEU, LD, FT4, CBC, JUANCARLOS, TSH, GFR, FT3 ####[address] [address] Globulin 3.7 G/dL Normal 1.5-3.8 [facility] ([place] Comment on above: Performed By: #### C MP, ADIFF, ANEU, LD, FT4, CBC, JUANCARLOS, TSH, GFR, FT3 ####[address] [address] Glucose [Mass/Vol] 108 mg/dL Normal 70-110 [facility] ([place] Comment on above: Performed By: #### C MP, ADIFF, ANEU, LD, FT4, CBC, JUANCARLOS, TSH, GFR, FT3 ####[address] [address] Potassium [Moles/Vol] 4.3 mmol/L Normal 3.5-5.0 [facility] ([place] Comment on above: Performed By: #### C MP, ADIFF, ANEU, LD, FT4, CBC, JUANCARLOS, TSH, GFR, FT3 ####[address] [address] Sodium [Moles/Vol] 140 mmol/L Normal 136-145 [facility] ([place] Comment on above: Performed By: #### C MP, ADIFF, ANEU, LD, FT4, CBC, JUANCARLOS, TSH, GFR, FT3 ####[address] [address] Total Protein 7.0 G/dL Normal 5.7-8.2 [facility] ([place]) Comment on above: Result Comment: No te - New Reference Range in effect 19 Performed By: #### C MP, ADIFF, ANEU, LD, FT4, CBC, JUANCARLOS, TSH, GFR, FT3 ####[address] [address] Urea nitrogen [Mass/Vol] 12.0 mg/dL Normal 8.0-22.0 [facility] ([place] Comment on above: Performed By: #### C MP, ADIFF, ANEU, LD, FT4, CBC, JUANCARLOS, TSH, GFR, FT3 ####[place] [address] CORTon 07-27-2023 Cortisol Level 19.1 mcg/dL Normal [facility] ([place]) Comment on above: Result Comment: Juancarlos isol AM Reference Range 6.5-26.0 mcg/dLCortisol PM Reference Range 3.5-15.0 mcg/dL Performed By: #### C MP, ADIFF, ANEU, LD, FT4, CBC, JUANCARLOS, TSH, GFR, FT3 ####[place] [address] FT3on 07-27-2023 Free T3 [Mass/Vol] 2.85 pg/mL Normal 2.30-4.20 [facility] ([place] Comment on above: Performed By: #### C MP, ADIFF, ANEU, LD, FT4, CBC, JUANCARLOS, TSH, GFR, FT3 ####[place] [address] FT4on 07-27-2023 Free T4 [Mass/Vol] 1.15 ng/dL Normal 0.89-1.76 [facility] ([place] Comment on above: Result Comment: No te - New Reference Range in effect 19 Performed By: #### C MP, ADIFF, ANEU, LD, FT4, CBC, JUANCARLOS, TSH, GFR, FT3 ####[place] [address] LABORATORYOrdered By: SYSTEM SYSTEM on 07-27-2023 Albumin BCP dye [Mass/Vol] 3.3 G/dL Normal 3.2 - 4.8 G/dL AH ADM SS Albumin/Globulin [Mass ratio] 0.9 {ratio} Normal 0.9 - 1.6 ratio AH ADM SS ALP [Catalytic activity/Vol] 200 U/L High 38 - 126 U/L AH ADM SS ALT No additional P-5'-P [Catalytic activity/Vol] 16 U/L Normal 12 - 55 U/L AH ADM SS AST [Catalytic activity/Vol] 18 U/L Normal 8 - 34 U/L AH ADM SS Basophils (Bld) [#/Vol] 0.1 103/mcL Normal 0.0 - 0.3 10^3/mcL Workflow SS Basophils/100 WBC (Bld) 0.9 % Normal 0.0 - 2.5 % Workflow SS Bilirubin [Mass/Vol] 0.90 mg/dL Normal 0.20 - 1.20 mg/dL ADM SS Comment on above: Interpretive Data: U se of this assay is not recommended for patients undergoing treatment with eltrombopag due to the potential for falsely elevated results. Calcium [Mass/Vol] 8.6 mg/dL Low 8.7 - 10. 4 mg/dL ADM SS Chloride [Moles/Vol] 105 mmol/L Normal 98 - 11 0 mEq/L ADM SS CO2 [Moles/Vol] 30 mmol/L Normal 22 - 32 mEq/L ADM SS Cortisol [Mass/Vol] 19.1 ug/dL Invalid Interpretation Code ADM SS Comment on above: Interpretive Data: C ortisol AM Reference Range 6.5-26.0 mcg/dL Cortisol PM Reference Range 3.5-15.0 mcg/dL Creatinine [Mass/Vol] 1.24 mg/dL Normal 0.60 - 1.40 mg/dL ADM SS Electrolyte Balance 5.0 mEq/L Normal 4.0 - 15 .0 mEq/L ADM SS Eosinophils (Bld) [#/Vol] 0.4 103/mcL Normal 0.0 - 0.7 10^3/mcL Workflow SS Eosinophils/100 WBC (Bld) 5.4 % Normal 0.0 - 6.0 % Workflow SS Erythrocyte distribution width (RBC) [Ratio] 16.7 % High 11.5 - 15.5 % Workflow SS Free T3 [Mass/Vol] 2.85 pg/mL Normal 2.30 - 4. 20 pg/mL ADM SS Free T4 [Mass/Vol] 1.15 ng/dL Normal 0.89 - 1. 76 ng/dL ADM SS Comment on above: Interpretive Data: * *Note - New Reference Range in effect 19 GFR/1.73 sq M.predicted among blacks MDRD (S/P/Bld) [Vol rate/Area] ml/min/1.73sqm Invalid Interpretation Code AH ADM SS Comment on above: Interpretive Data: GFR Population mean for , Non- Americans Ages 20-29 = 116 mL/min/1.73 sq.m. Ages 30-39 = 107 mL/min/1.73 sq.m. Ages 40-49 = 99 mL/min/1.73 sq.m. Ages 50-59 = 93 mL/min/1.73 sq.m. Ages 60-69 = 85 mL/min/1.73 sq.m. Ages 70+ = 75 mL/min/1.73 sq.m. Chronic Kidney Disease: Less than 60 mL/min/1.73 square meters End Stage Renal Disease: Less than 15 mL/min/1.73 square meters GFR/1.73 sq M.predicted among non-blacks MDRD (S/P/Bld) [Vol rate/Area] ml/min/1.73sqm Invalid Interpretation Code [facility] Comment on above: Interpretive Data: GFR Population mean for , Non- Americans Ages 20-29 = 116 mL/min/1.73 sq.m. Ages 30-39 = 107 mL/min/1.73 sq.m. Ages 40-49 = 99 mL/min/1.73 sq.m. Ages 50-59 = 93 mL/min/1.73 sq.m. Ages 60-69 = 85 mL/min/1.73 sq.m. Ages 70+ = 75 mL/min/1.73 sq.m. Chronic Kidney Disease: Less than 60 mL/min/1.73 square meters End Stage Renal Disease: Less than 15 mL/min/1.73 square meters Globulin 3.7 G/dL Normal 1.5 - 3.8 G/dL ADM SS Glucose [Mass/Vol] 108 mg/dL Normal 70 - 110 mg/dL ADM SS Hematocrit (Bld) [Volume fraction] 42.9 % Normal 40.0 - 52.0 % Workflow SS Hemoglobin (Bld) [Mass/Vol] 14.3 G/dL Normal 13.0 - 17.5 G/dL Workflow SS LDH Lactate to pyruvate reaction [Catalytic activity/Vol] 197 1 Normal 120 - 246 U/L ADM SS Lymphocytes (Bld) [#/Vol] 1.0 103/mcL Normal 0.9 - 4.3 10^3/mcL AH Workflow SS Lymphocytes/100 WBC (Bld) 14.9 % Low 20.0 - 40.0 % AH Workflow SS MCH (RBC) [Entitic mass] 31.6 pg Normal 27.0 - 33.0 pg AH Workflow SS MCHC 33.3 G/dL Normal 32.0 - 36.0 G/dL AH Workflow SS MCV (RBC) [Entitic vol] 94.8 fL Normal 81.0 - 100.0 fL AH Workflow SS Monocytes (Bld) [#/Vol] 0.7 103/mcL Normal 0.1 - 1.4 10^3/mcL AH Workflow SS Monocytes/100 WBC (Bld) 10.4 % Normal 2.0 - 13.0 % AH Workflow SS Neutrophils (Bld) [#/Vol] 4.7 103/mcL Normal 2.3 - 8.1 10^3/mcL AH Workflow SS Neutrophils/100 WBC (Bld) 68.4 % Normal 50.0 - 75.0 % AH Workflow SS Platelet mean volume (Bld) [Entitic vol] 7.3 fL Normal 6.4 - 10.5 fL AH Workflow SS Platelets (Bld) [#/Vol] 229 103/mcL Normal 150 - 450 10^3/mcL AH Workflow SS Potassium [Moles/Vol] 4.3 mmol/L Normal 3.5 - 5.0 mEq/L AH ADM SS Protein [Mass/Vol] 7.0 G/dL Normal 5.7 - 8.2 G/dL ADM SS Comment on above: Interpretive Data: * *Note - New Reference Range in effect 19 RBC (Bld) [#/Vol] 4.52 106/mcL Normal 4.50 - 6.0 0 10^6/mcL AH Workflow SS Sodium [Moles/Vol] 140 mmol/L Normal 136 - 145 mEq/L AH ADM SS TSH Qn 7.227 mIU/mL High 0.550 - 4.780 mIU/mL AH ADM SS Comment on above: Interpretive Data: * *Note - New Reference Range in effect 19 Urea nitrogen [Mass/Vol] 12.0 mg/dL Normal 8.0 - 22.0 mg/dL ADM SS Urea nitrogen/Creatinine [Mass ratio] 9.7 ratio Low 10.0 - 22.0 ratio AH ADM SS WBC (Bld) [#/Vol] 6.9 103/mcL Normal 4.5 - 10.8 10^3/mcL AH Workflow SS LDHon 07-27-2023 LDH 197 U/L Normal 120-246 [facility] ([place]) Comment on above: Performed By: #### C MP, ADIFF, ANEU, LD, FT4, CBC, JUANCARLOS, TSH, GFR, FT3 ####[address] [address] TSHon 07-27-2023 TSH 7.227 mIU/mL High 0.550-4.780 [facility] ([place]) Comment on above: Result Comment: No te - New Reference Range in effect 19 Performed By: #### C MP, ADIFF, ANEU, LD, FT4, CBC, JUANCARLOS, TSH, GFR, FT3 ####[place] [address] CT ABDOMEN/PELVIS W/CONTRAST on 07-20-2023 CT ABDOMEN/PELVIS W/CONTRAST Normal [facility] ([place]) CT THORAX W/ CONTRASTon CT THORAX W/ CONTRAST Normal [facility] ([place]) .Auto Diffon 02-16-2023 Basophil, Absolute 0.1 10 3/mcL Normal 0.0-0.3 [facility] ([place]) Comment on above: Performed By: #### A DIFF, GFR, CBC, FT3, ANEU, LD, FT4, TSH, CMP, JUANCARLOS ####[address] [address] Basophils/100 WBC (Bld) 1.0 % Normal 0.0-2.5 [facility] ([place] Comment on above: Performed By: #### A DIFF, GFR, CBC, FT3, ANEU, LD, FT4, TSH, CMP, JUANCARLOS ####[address] [address] Eosinophil, Absolute 0.3 10 3/mcL Normal 0.0-0.7 [facility] ([place]) Comment on above: Performed By: #### A DIFF, GFR, CBC, FT3, ANEU, LD, FT4, TSH, CMP, JUANCARLOS ####[address] [address] Eosinophils/100 WBC (Bld) 3.2 % Normal 0.0-6.0 [facility] ([place] Comment on above: Performed By: #### A DIFF, GFR, CBC, FT3, ANEU, LD, FT4, TSH, CMP, JUANCARLOS ####[address] [address] Lymphocyte, Absolute 1.1 10 3/mcL Normal 0.9-4.3 [facility] ([place] Comment on above: Performed By: #### A DIFF, GFR, CBC, FT3, ANEU, LD, FT4, TSH, CMP, JUANCARLOS ####[address] [address] Lymphocytes/100 WBC (Bld) 12.6 % Low 20.0-40.0 [facility] ([place] Comment on above: Performed By: #### A DIFF, GFR, CBC, FT3, ANEU, LD, FT4, TSH, CMP, JUANCARLOS ####[address] [address] Monocyte, Absolute 0.6 10 3/mcL Normal 0.1-1.4 [facility] ([place] Comment on above: Performed By: #### A DIFF, GFR, CBC, FT3, ANEU, LD, FT4, TSH, CMP, JUANCARLOS ####[address] [address] Monocytes/100 WBC (Bld) 6.9 % Normal 2.0-13.0 [facility] ([place] Comment on above: Performed By: #### A DIFF, GFR, CBC, FT3, ANEU, LD, FT4, TSH, CMP, JUANCARLOS ####[address] [address] Neutrophils/100 WBC (Bld) 76.3 % High 50.0-75.0 [facility] ([place] Comment on above: Performed By: #### A DIFF, GFR, CBC, FT3, ANEU, LD, FT4, TSH, CMP, JUANCARLOS ####[address] [address] .GFRon 02-16-2023 GFR >60 Normal [facility] ([place] Comment on above: Result Comment: GFR Population mean for , Non- Americans Ages 20-29 = 116 mL/min/1.73 sq.m. Ages 30-39 = 107 mL/min/1.73 sq.m. Ages 40-49 = 99 mL/min/1.73 sq.m. Ages 50-59 = 93 mL/min/1.73 sq.m. Ages 60-69 = 85 mL/min/1.73 sq.m. Ages 70+ = 75 mL/min/1.73 sq.m.Chronic Kidney Disease: Less than 60 mL/min/1.73 square metersEnd Stage Renal Disease: Less than 15 mL/min/1.73 square meters Performed By: #### A DIFF, GFR, CBC, FT3, ANEU, LD, FT4, TSH, CMP, JUANCARLOS ####[address] [address] GFR Non- 56 ml/min/1.73sqm Normal [facility] ([place]) Comment on above: Result Comment: GFR Population mean for , Non- Americans Ages 20-29 = 116 mL/min/1.73 sq.m. Ages 30-39 = 107 mL/min/1.73 sq.m. Ages 40-49 = 99 mL/min/1.73 sq.m. Ages 50-59 = 93 mL/min/1.73 sq.m. Ages 60-69 = 85 mL/min/1.73 sq.m. Ages 70+ = 75 mL/min/1.73 sq.m.Chronic Kidney Disease: Less than 60 mL/min/1.73 square metersEnd Stage Renal Disease: Less than 15 mL/min/1.73 square meters Performed By: #### A DIFF, GFR, CBC, FT3, ANEU, LD, FT4, TSH, CMP, JUANCARLOS ####[address] [address] .NEUABSon 02-16-2023 Neutrophil, Absolute 6.4 10 3/mcL Normal 2.3-8.1 [facility] ([place] Comment on above: Performed By: #### A DIFF, GFR, CBC, FT3, ANEU, LD, FT4, TSH, CMP, JUANCARLOS ####[place] [address] CBCon 02-16-2023 Erythrocyte distribution width (RBC) [Ratio] 21.0 % High 11.5-15.5 [facility] ([place] Comment on above: Performed By: #### A DIFF, GFR, CBC, FT3, ANEU, LD, FT4, TSH, CMP, JUANCARLOS ####[place] [address] Hematocrit (Bld) [Volume fraction] 42.3 % Normal 40.0-52.0 [facility] ([place] Comment on above: Performed By: #### A DIFF, GFR, CBC, FT3, ANEU, LD, FT4, TSH, CMP, JUANCARLOS ####[place] [address] Hgb 13.6 G/dL Normal 13.0-17.5 [facility] ([place] Comment on above: Performed By: #### A DIFF, GFR, CBC, FT3, ANEU, LD, FT4, TSH, CMP, JUANCARLOS ####[place] [address] MCH (RBC) [Entitic mass] 28.7 pg Normal 27.0-33.0 [facility] ([place] Comment on above: Performed By: #### A DIFF, GFR, CBC, FT3, ANEU, LD, FT4, TSH, CMP, JUANCARLOS ####[place] [address] MCHC 32.2 G/dL Normal 32.0-36.0 [facility] ([place] Comment on above: Performed By: #### A DIFF, GFR, CBC, FT3, ANEU, LD, FT4, TSH, CMP, JUANCARLOS ####[place] [address] MCV (RBC) [Entitic vol] 89.3 fL Normal 81.0-100.0 [facility] ([place] Comment on above: Performed By: #### A DIFF, GFR, CBC, FT3, ANEU, LD, FT4, TSH, CMP, JUANCARLOS ####[place] [address] Platelet 237 10 3/mcL Normal 150-450 [facility] ([place]) Comment on above: Performed By: #### A DIFF, GFR, CBC, FT3, ANEU, LD, FT4, TSH, CMP, JUANCARLOS ####[place] [address] Platelet mean volume (Bld) [Entitic vol] 7.8 fL Normal 6.4-10.5 [facility] ([place] Comment on above: Performed By: #### A DIFF, GFR, CBC, FT3, ANEU, LD, FT4, TSH, CMP, JUANCARLOS ####[place] [id number] RBC 4.74 10 6/mcL Normal 4.50-6.00 [facility] ([place] Comment on above: Performed By: #### A DIFF, GFR, CBC, FT3, ANEU, LD, FT4, TSH, CMP, JUANCARLOS ####[place] [id number] WBC 8.4 10 3/mcL Normal 4.5-10.8 [facility] ([place] Comment on above: Performed By: #### A DIFF, GFR, CBC, FT3, ANEU, LD, FT4, TSH, CMP, JUANCARLOS ####[place] [address] CMPon 02-16-2023 Albumin Level 3.1 G/dL Low 3.2-4.8 [facility] ([place] Comment on above: Performed By: #### A DIFF, GFR, CBC, FT3, ANEU, LD, FT4, TSH, CMP, JUANCARLOS ####[place] [address] Albumin/Globulin [Mass ratio] 0.8 {ratio} Low 0.9-1.6 [facility] ([place] Comment on above: Performed By: #### A DIFF, GFR, CBC, FT3, ANEU, LD, FT4, TSH, CMP, JUANCARLOS ####[place] [address] ALP [Catalytic activity/Vol] 137 U/L High 38-126 [facility] ([place] Comment on above: Performed By: #### A DIFF, GFR, CBC, FT3, ANEU, LD, FT4, TSH, CMP, JUANCARLOS ####[place] [address] ALT [Catalytic activity/Vol] 16 U/L Normal 12-55 [facility] ([place] Comment on above: Performed By: #### A DIFF, GFR, CBC, FT3, ANEU, LD, FT4, TSH, CMP, JUANCARLOS ####[place] [id number] AST [Catalytic activity/Vol] 17 U/L Normal 8-34 [facility] ([place] Comment on above: Performed By: #### A DIFF, GFR, CBC, FT3, ANEU, LD, FT4, TSH, CMP, JUANCARLOS ####[place] [address] Bili Total 0.70 mg/dL Normal 0.20-1.20 [facility] ([place] Comment on above: Result Comment: Use of this assay is not recommended for patients undergoing treatment with eltrombopag due to the potential for falsely elevated results. Performed By: #### A DIFF, GFR, CBC, FT3, ANEU, LD, FT4, TSH, CMP, JUANCARLOS ####[place] [address] BUN/Creatinine Ratio 14.5 ratio Normal 10.0-22.0 [facility] ([place] Comment on above: Performed By: #### A DIFF, GFR, CBC, FT3, ANEU, LD, FT4, TSH, CMP, JUANCARLOS ####[place] [id number] Calcium [Mass/Vol] 8.6 mg/dL Low 8.7-10.4 [facility] ([place] Comment on above: Performed By: #### A DIFF, GFR, CBC, FT3, ANEU, LD, FT4, TSH, CMP, JUANCARLOS ####[place] [id number] Chloride [Moles/Vol] 104 mmol/L Normal 98-110 [facility] ([place] Comment on above: Performed By: #### A DIFF, GFR, CBC, FT3, ANEU, LD, FT4, TSH, CMP, JUANCARLOS ####[address] [address] CO2 [Moles/Vol] 32 mmol/L Normal 22-32 [facility] ([place] Comment on above: Performed By: #### A DIFF, GFR, CBC, FT3, ANEU, LD, FT4, TSH, CMP, JUANCARLOS ####[address] [address] Creatinine [Mass/Vol] 1.38 mg/dL Normal 0.60-1.40 [facility] ([place] Comment on above: Performed By: #### A DIFF, GFR, CBC, FT3, ANEU, LD, FT4, TSH, CMP, JUANCARLOS ####[place] [address] Electrolyte Balance 3.0 mEq/L Low 4.0-15.0 [facility] ([place] Comment on above: Performed By: #### A DIFF, GFR, CBC, FT3, ANEU, LD, FT4, TSH, CMP, JUANCARLOS ####[place] [address] Globulin 3.7 G/dL Normal 1.5-3.8 [facility] ([place] Comment on above: Performed By: #### A DIFF, GFR, CBC, FT3, ANEU, LD, FT4, TSH, CMP, JUANCARLOS ####[place] [address] Glucose [Mass/Vol] 218 mg/dL High 70-110 [facility] ([place] Comment on above: Performed By: #### A DIFF, GFR, CBC, FT3, ANEU, LD, FT4, TSH, CMP, JUANCARLOS ####[place] [address] Potassium [Moles/Vol] 3.6 mmol/L Normal 3.5-5.0 [facility] ([place] Comment on above: Performed By: #### A DIFF, GFR, CBC, FT3, ANEU, LD, FT4, TSH, CMP, JUANCARLOS ####[address] [address] Sodium [Moles/Vol] 139 mmol/L Normal 136-145 [facility] ([place] Comment on above: Performed By: #### A DIFF, GFR, CBC, FT3, ANEU, LD, FT4, TSH, CMP, JUANCARLOS ####[place] [address] Total Protein 6.8 G/dL Normal 5.7-8.2 [facility] ([place] Comment on above: Result Comment: No te - New Reference Range in effect 19 Performed By: #### A DIFF, GFR, CBC, FT3, ANEU, LD, FT4, TSH, CMP, JUANCARLOS ####[place] [address] Urea nitrogen [Mass/Vol] 20.0 mg/dL Normal 8.0-22.0 [facility] ([place] Comment on above: Performed By: #### A DIFF, GFR, CBC, FT3, ANEU, LD, FT4, TSH, CMP, JUANCARLOS ####[place] [address] CORTon 02-16-2023 Cortisol Level 16.8 mcg/dL Normal [facility] ([place] Comment on above: Result Comment: Juancarlos isol AM Reference Range 6.5-26.0 mcg/dLCortisol PM Reference Range 3.5-15.0 mcg/dL Performed By: #### A DIFF, GFR, CBC, FT3, ANEU, LD, FT4, TSH, CMP, JUANCARLOS ####[place] [address] FT3on 02-16-2023 Free T3 [Mass/Vol] 3.07 pg/mL Normal 2.30-4.20 [facility] ([place] Comment on above: Performed By: #### A DIFF, GFR, CBC, FT3, ANEU, LD, FT4, TSH, CMP, JUANCARLOS ####[place] [address] FT4on 02-16-2023 Free T4 [Mass/Vol] 1.17 ng/dL Normal 0.89-1.76 [facility] ([place] Comment on above: Result Comment: No te - New Reference Range in effect 19 Performed By: #### A DIFF, GFR, CBC, FT3, ANEU, LD, FT4, TSH, CMP, JUANCARLOS ####[place] [id number] [address] [place] [address] LABORATORYOrdered By: SYSTEM SYSTEM on 02-16-2023 Albumin BCP dye [Mass/Vol] 3.1 G/dL Low 3.2 - 4.8 G/dL ADM SS Albumin/Globulin [Mass ratio] 0.8 {ratio} Low 0.9 - 1.6 ratio AH ADM SS ALP [Catalytic activity/Vol] 137 U/L High 38 - 126 U/L AH ADM SS ALT No additional P-5'-P [Catalytic activity/Vol] 16 U/L Normal 12 - 55 U/L AH ADM SS AST [Catalytic activity/Vol] 17 U/L Normal 8 - 34 U/L AH ADM SS Basophils (Bld) [#/Vol] 0.1 103/mcL Normal 0.0 - 0.3 10^3/mcL Workflow SS Basophils/100 WBC (Bld) 1.0 % Normal 0.0 - 2.5 % AH Workflow SS Bilirubin [Mass/Vol] 0.70 mg/dL Normal 0.20 - 1.20 mg/dL AH ADM SS Comment on above: Interpretive Data: U se of this assay is not recommended for patients undergoing treatment with eltrombopag due to the potential for falsely elevated results. Calcium [Mass/Vol] 8.6 mg/dL Low 8.7 - 10. 4 mg/dL AH ADM SS Chloride [Moles/Vol] 104 mmol/L Normal 98 - 11 0 mEq/L AH ADM SS CO2 [Moles/Vol] 32 mmol/L Normal 22 - 32 mEq/L AH ADM SS Cortisol [Mass/Vol] 16.8 ug/dL Invalid Interpretation Code AH ADM SS Comment on above: Interpretive Data: C ortisol AM Reference Range 6.5-26.0 mcg/dL Cortisol PM Reference Range 3.5-15.0 mcg/dL Creatinine [Mass/Vol] 1.38 mg/dL Normal 0.60 - 1.40 mg/dL AH ADM SS Electrolyte Balance 3.0 mEq/L Low 4.0 - 15 .0 mEq/L AH ADM SS Eosinophils (Bld) [#/Vol] 0.3 103/mcL Normal 0.0 - 0.7 10^3/mcL Workflow SS Eosinophils/100 WBC (Bld) 3.2 % Normal 0.0 - 6.0 % Workflow SS Erythrocyte distribution width (RBC) [Ratio] 21.0 % High 11.5 - 15.5 % AH Workflow SS Free T3 [Mass/Vol] 3.07 pg/mL Normal 2.30 - 4. 20 pg/mL AH ADM SS Free T4 [Mass/Vol] 1.17 ng/dL Normal 0.89 - 1. 76 ng/dL ADM SS Comment on above: Interpretive Data: * *Note - New Reference Range in effect 19 GFR/1.73 sq M.predicted among blacks MDRD (S/P/Bld) [Vol rate/Area] ml/min/1.73sqm Invalid Interpretation Code AH ADM SS Comment on above: Interpretive Data: GFR Population mean for , Non- Americans Ages 20-29 = 116 mL/min/1.73 sq.m. Ages 30-39 = 107 mL/min/1.73 sq.m. Ages 40-49 = 99 mL/min/1.73 sq.m. Ages 50-59 = 93 mL/min/1.73 sq.m. Ages 60-69 = 85 mL/min/1.73 sq.m. Ages 70+ = 75 mL/min/1.73 sq.m. Chronic Kidney Disease: Less than 60 mL/min/1.73 square meters End Stage Renal Disease: Less than 15 mL/min/1.73 square meters GFR/1.73 sq M.predicted among non-blacks MDRD (S/P/Bld) [Vol rate/Area] 56 ml/min/1.73sqm Invalid Interpretation Code AH ADM SS Comment on above: Interpretive Data: GFR Population mean for , Non- Americans Ages 20-29 = 116 mL/min/1.73 sq.m. Ages 30-39 = 107 mL/min/1.73 sq.m. Ages 40-49 = 99 mL/min/1.73 sq.m. Ages 50-59 = 93 mL/min/1.73 sq.m. Ages 60-69 = 85 mL/min/1.73 sq.m. Ages 70+ = 75 mL/min/1.73 sq.m. Chronic Kidney Disease: Less than 60 mL/min/1.73 square meters End Stage Renal Disease: Less than 15 mL/min/1.73 square meters Globulin 3.7 G/dL Normal 1.5 - 3.8 G/dL ADM SS Glucose [Mass/Vol] 218 mg/dL High 70 - 110 mg/dL ADM SS Hematocrit (Bld) [Volume fraction] 42.3 % Normal 40.0 - 52.0 % AH Workflow SS Hemoglobin (Bld) [Mass/Vol] 13.6 G/dL Normal 13.0 - 17.5 G/dL Workflow SS LDH Lactate to pyruvate reaction [Catalytic activity/Vol] 189 1 Normal 120 - 246 U/L ADM SS Lymphocytes (Bld) [#/Vol] 1.1 103/mcL Normal 0.9 - 4.3 10^3/mcL AH Workflow SS Lymphocytes/100 WBC (Bld) 12.6 % Low 20.0 - 40.0 % AH Workflow SS MCH (RBC) [Entitic mass] 28.7 pg Normal 27.0 - 33.0 pg Workflow SS MCHC 32.2 G/dL Normal 32.0 - 36.0 G/dL Workflow SS MCV (RBC) [Entitic vol] 89.3 fL Normal 81.0 - 100.0 fL AH Workflow SS Monocytes (Bld) [#/Vol] 0.6 103/mcL Normal 0.1 - 1.4 10^3/mcL AH Workflow SS Monocytes/100 WBC (Bld) 6.9 % Normal 2.0 - 13.0 % AH Workflow SS Neutrophils (Bld) [#/Vol] 6.4 103/mcL Normal 2.3 - 8.1 10^3/mcL AH Workflow SS Neutrophils/100 WBC (Bld) 76.3 % High 50.0 - 75.0 % Workflow SS Platelet mean volume (Bld) [Entitic vol] 7.8 fL Normal 6.4 - 10.5 fL AH Workflow SS Platelets (Bld) [#/Vol] 237 103/mcL Normal 150 - 450 10^3/mcL AH Workflow SS Potassium [Moles/Vol] 3.6 mmol/L Normal 3.5 - 5.0 mEq/L ADM SS Protein [Mass/Vol] 6.8 G/dL Normal 5.7 - 8.2 G/dL AH ADM SS Comment on above: Interpretive Data: * *Note - New Reference Range in effect 19 RBC (Bld) [#/Vol] 4.74 106/mcL Normal 4.50 - 6.0 0 10^6/mcL AH Workflow SS Sodium [Moles/Vol] 139 mmol/L Normal 136 - 145 mEq/L AH ADM SS TSH Qn 6.717 mIU/mL High 0.550 - 4.780 mIU/mL AH ADM SS Comment on above: Interpretive Data: * *Note - New Reference Range in effect 19 Urea nitrogen [Mass/Vol] 20.0 mg/dL Normal 8.0 - 22.0 mg/dL ADM SS Urea nitrogen/Creatinine [Mass ratio] 14.5 ratio Normal 10.0 - 22.0 ratio AH ADM SS WBC (Bld) [#/Vol] 8.4 103/mcL Normal 4.5 - 10.8 10^3/mcL Workflow SS LDHon 02-16-2023 LDH 189 U/L Normal 120-246 [facility] ([place]) Comment on above: Performed By: #### A DIFF, GFR, CBC, FT3, ANEU, LD, FT4, TSH, CMP, JUANCARLOS ####[place] [address] TSHon 02-16-2023 TSH 6.717 mIU/mL High 0.550-4.780 [facility] ([place]) Comment on above: Result Comment: No te - New Reference Range in effect 19 Performed By: #### A DIFF, GFR, CBC, FT3, ANEU, LD, FT4, TSH, CMP, JUANCARLOS ####[place] [address] .Auto Diffon 01-19-2023 Basophil, Absolute 0.1 10 3/mcL Normal 0.0-0.3 [facility] ([place]) Comment on above: Performed By: #### F T3, ANEU, TSH, GFR, ADIFF, CBC, LD, CMP, FT4, JUANCARLOS ####[id number] [place] [address] Basophils/100 WBC (Bld) 0.9 % Normal 0.0-2.5 [facility] ([place] Comment on above: Performed By: #### F T3, ANEU, TSH, GFR, ADIFF, CBC, LD, CMP, FT4, JUANCARLOS ####[address] [address] Eosinophil, Absolute 0.4 10 3/mcL Normal 0.0-0.7 [facility] ([place]) Comment on above: Performed By: #### F T3, ANEU, TSH, GFR, ADIFF, CBC, LD, CMP, FT4, JUANCARLOS ####[address] [address] Eosinophils/100 WBC (Bld) 4.2 % Normal 0.0-6.0 [facility] ([place] Comment on above: Performed By: #### F T3, ANEU, TSH, GFR, ADIFF, CBC, LD, CMP, FT4, JUANCARLOS ####[address] [address] Lymphocyte, Absolute 1.0 10 3/mcL Normal 0.9-4.3 [facility] ([place] Comment on above: Performed By: #### F T3, ANEU, TSH, GFR, ADIFF, CBC, LD, CMP, FT4, JUANCARLOS ####[address] [address] Lymphocytes/100 WBC (Bld) 11.0 % Low 20.0-40.0 [facility] ([place] Comment on above: Performed By: #### F T3, ANEU, TSH, GFR, ADIFF, CBC, LD, CMP, FT4, JUANCARLOS ####[address] [address] Monocyte, Absolute 0.5 10 3/mcL Normal 0.1-1.4 [facility] ([place] Comment on above: Performed By: #### F T3, ANEU, TSH, GFR, ADIFF, CBC, LD, CMP, FT4, JUANCARLOS ####[address] [address] Monocytes/100 WBC (Bld) 5.4 % Normal 2.0-13.0 [facility] ([place] Comment on above: Performed By: #### F T3, ANEU, TSH, GFR, ADIFF, CBC, LD, CMP, FT4, JUANCARLOS ####[address] [address] Neutrophils/100 WBC (Bld) 78.5 % High 50.0-75.0 [facility] ([place]) Comment on above: Performed By: #### F T3, ANEU, TSH, GFR, ADIFF, CBC, LD, CMP, FT4, JUANCARLOS ####[address] [address] .GFRon 01-19-2023 GFR >60 Normal [facility] ([place]) Comment on above: Result Comment: GFR Population mean for , Non- Americans Ages 20-29 = 116 mL/min/1.73 sq.m. Ages 30-39 = 107 mL/min/1.73 sq.m. Ages 40-49 = 99 mL/min/1.73 sq.m. Ages 50-59 = 93 mL/min/1.73 sq.m. Ages 60-69 = 85 mL/min/1.73 sq.m. Ages 70+ = 75 mL/min/1.73 sq.m.Chronic Kidney Disease: Less than 60 mL/min/1.73 square metersEnd Stage Renal Disease: Less than 15 mL/min/1.73 square meters Performed By: #### F T3, ANEU, TSH, GFR, ADIFF, CBC, LD, CMP, FT4, JUANCARLOS ####[address] [address] GFR Non- 58 ml/min/1.73sqm Normal [facility] ([place]) Comment on above: Result Comment: GFR Population mean for , Non- Americans Ages 20-29 = 116 mL/min/1.73 sq.m. Ages 30-39 = 107 mL/min/1.73 sq.m. Ages 40-49 = 99 mL/min/1.73 sq.m. Ages 50-59 = 93 mL/min/1.73 sq.m. Ages 60-69 = 85 mL/min/1.73 sq.m. Ages 70+ = 75 mL/min/1.73 sq.m.Chronic Kidney Disease: Less than 60 mL/min/1.73 square metersEnd Stage Renal Disease: Less than 15 mL/min/1.73 square meters Performed By: #### F T3, ANEU, TSH, GFR, ADIFF, CBC, LD, CMP, FT4, JUANCARLOS ####[place] [address] .NEUABSon 01-19-2023 Neutrophil, Absolute 7.1 10 3/mcL Normal 2.3-8.1 [facility] ([place] Comment on above: Performed By: #### F T3, ANEU, TSH, GFR, ADIFF, CBC, LD, CMP, FT4, JUANCARLOS ####[place] [address] CBCon 01-19-2023 Erythrocyte distribution width (RBC) [Ratio] 22.5 % High 11.5-15.5 [facility] ([place] Comment on above: Performed By: #### F T3, ANEU, TSH, GFR, ADIFF, CBC, LD, CMP, FT4, JUANCARLOS ####[place] [address] Hematocrit (Bld) [Volume fraction] 44.4 % Normal 40.0-52.0 [facility] ([place] Comment on above: Performed By: #### F T3, ANEU, TSH, GFR, ADIFF, CBC, LD, CMP, FT4, JUANCARLOS ####[place] [address] Hgb 14.3 G/dL Normal 13.0-17.5 [facility] ([place] Comment on above: Performed By: #### F T3, ANEU, TSH, GFR, ADIFF, CBC, LD, CMP, FT4, JUANCARLOS ####[place] [address] MCH (RBC) [Entitic mass] 27.8 pg Normal 27.0-33.0 [facility] ([place] Comment on above: Performed By: #### F T3, ANEU, TSH, GFR, ADIFF, CBC, LD, CMP, FT4, JUANCARLOS ####[place] [address] MCHC 32.3 G/dL Normal 32.0-36.0 [facility] ([place] Comment on above: Performed By: #### F T3, ANEU, TSH, GFR, ADIFF, CBC, LD, CMP, FT4, JUANCARLOS ####[place] [address] MCV (RBC) [Entitic vol] 86.3 fL Normal 81.0-100.0 [facility] ([place] Comment on above: Performed By: #### F T3, ANEU, TSH, GFR, ADIFF, CBC, LD, CMP, FT4, JUANCARLOS ####[place] [address] Platelet 245 10 3/mcL Normal 150-450 [facility] ([place]) Comment on above: Performed By: #### F T3, ANEU, TSH, GFR, ADIFF, CBC, LD, CMP, FT4, JUANCARLOS ####[place] [address] Platelet mean volume (Bld) [Entitic vol] 7.0 fL Normal 6.4-10.5 [facility] ([place]) Comment on above: Performed By: #### F T3, ANEU, TSH, GFR, ADIFF, CBC, LD, CMP, FT4, JUANCARLOS ####[place] [address] RBC 5.14 10 6/mcL Normal 4.50-6.00 [facility] ([place] Comment on above: Performed By: #### F T3, ANEU, TSH, GFR, ADIFF, CBC, LD, CMP, FT4, JUANCARLOS ####[place] [address] WBC 9.1 10 3/mcL Normal 4.5-10.8 [facility] ([place] Comment on above: Performed By: #### F T3, ANEU, TSH, GFR, ADIFF, CBC, LD, CMP, FT4, JUANCARLOS ####[place] [address] CMPon 01-19-2023 Albumin Level 3.4 G/dL Normal 3.2-4.8 [facility] ([place]) Comment on above: Performed By: #### F T3, ANEU, TSH, GFR, ADIFF, CBC, LD, CMP, FT4, JUANCARLOS ####[place] [address] Albumin/Globulin [Mass ratio] 0.9 {ratio} Normal 0.9-1.6 [facility] ([place]) Comment on above: Performed By: #### F T3, ANEU, TSH, GFR, ADIFF, CBC, LD, CMP, FT4, JUANCARLOS ####[place] [address] ALP [Catalytic activity/Vol] 126 U/L Normal 38-126 [facility] ([place]) Comment on above: Performed By: #### F T3, ANEU, TSH, GFR, ADIFF, CBC, LD, CMP, FT4, JUANCARLOS ####[place] [address] ALT [Catalytic activity/Vol] 18 U/L Normal 12-55 [facility] ([place]) Comment on above: Performed By: #### F T3, ANEU, TSH, GFR, ADIFF, CBC, LD, CMP, FT4, JUANCARLOS ####[place] [address] AST [Catalytic activity/Vol] 19 U/L Normal 8-34 [facility] ([place]) Comment on above: Performed By: #### F T3, ANEU, TSH, GFR, ADIFF, CBC, LD, CMP, FT4, JUANCARLOS ####[place] [address] Bili Total 0.60 mg/dL Normal 0.20-1.20 [facility] ([place]) Comment on above: Result Comment: Use of this assay is not recommended for patients undergoing treatment with eltrombopag due to the potential for falsely elevated results. Performed By: #### F T3, ANEU, TSH, GFR, ADIFF, CBC, LD, CMP, FT4, JUANCARLOS ####[place] [address] BUN/Creatinine Ratio 14.2 ratio Normal 10.0-22.0 [facility] ([place] Comment on above: Performed By: #### F T3, ANEU, TSH, GFR, ADIFF, CBC, LD, CMP, FT4, JUANCARLOS ####[place] [address] Calcium [Mass/Vol] 8.7 mg/dL Normal 8.7-10.4 [facility] ([place] Comment on above: Performed By: #### F T3, ANEU, TSH, GFR, ADIFF, CBC, LD, CMP, FT4, JUANCARLOS ####[place] [address] Chloride [Moles/Vol] 107 mmol/L Normal 98-110 [facility] ([place] Comment on above: Performed By: #### F T3, ANEU, TSH, GFR, ADIFF, CBC, LD, CMP, FT4, JUANCARLOS ####[place] [address] CO2 [Moles/Vol] 29 mmol/L Normal 22-32 [facility] ([place] Comment on above: Performed By: #### F T3, ANEU, TSH, GFR, ADIFF, CBC, LD, CMP, FT4, JUANCARLOS ####[place] [address] Creatinine [Mass/Vol] 1.34 mg/dL Normal 0.60-1.40 [facility] ([place]) Comment on above: Performed By: #### F T3, ANEU, TSH, GFR, ADIFF, CBC, LD, CMP, FT4, JUANCARLOS ####[place] [address] Electrolyte Balance 5.0 mEq/L Normal 4.0-15.0 [facility] ([place] Comment on above: Performed By: #### F T3, ANEU, TSH, GFR, ADIFF, CBC, LD, CMP, FT4, JUANCARLOS ####[place] [address] Globulin 3.6 G/dL Normal 1.5-3.8 [facility] ([place] Comment on above: Performed By: #### F T3, ANEU, TSH, GFR, ADIFF, CBC, LD, CMP, FT4, JUANCARLOS ####[place] [address] Glucose [Mass/Vol] 163 mg/dL High 70-110 [facility] ([place] Comment on above: Performed By: #### F T3, ANEU, TSH, GFR, ADIFF, CBC, LD, CMP, FT4, JUANCARLOS ####[place] [address] Potassium [Moles/Vol] 4.2 mmol/L Normal 3.5-5.0 [facility] ([place]) Comment on above: Performed By: #### F T3, ANEU, TSH, GFR, ADIFF, CBC, LD, CMP, FT4, JUANCARLOS ####[place] [address] Sodium [Moles/Vol] 141 mmol/L Normal 136-145 [facility] ([place] Comment on above: Performed By: #### F T3, ANEU, TSH, GFR, ADIFF, CBC, LD, CMP, FT4, JUANCARLOS ####[place] [address] Total Protein 7.0 G/dL Normal 5.7-8.2 [facility] ([place]) Comment on above: Result Comment: No te - New Reference Range in effect 19 Performed By: #### F T3, ANEU, TSH, GFR, ADIFF, CBC, LD, CMP, FT4, JUANCARLOS ####[place] [address] Urea nitrogen [Mass/Vol] 19.0 mg/dL Normal 8.0-22.0 [facility] ([place] Comment on above: Performed By: #### F T3, ANEU, TSH, GFR, ADIFF, CBC, LD, CMP, FT4, JUANCARLOS ####[place] [address] CORTon 01-19-2023 Cortisol Level 22.7 mcg/dL Normal [facility] ([place]) Comment on above: Result Comment: Juancarlos isol AM Reference Range 6.5-26.0 mcg/dLCortisol PM Reference Range 3.5-15.0 mcg/dL Performed By: #### F T3, ANEU, TSH, GFR, ADIFF, CBC, LD, CMP, FT4, JUANCARLOS ####[place] [address] FT3on 01-19-2023 Free T3 [Mass/Vol] 3.72 pg/mL Normal 2.30-4.20 [facility] ([place] Comment on above: Performed By: #### F T3, ANEU, TSH, GFR, ADIFF, CBC, LD, CMP, FT4, JUANCARLOS ####[place] [address] FT4on 01-19-2023 Free T4 [Mass/Vol] 1.07 ng/dL Normal 0.89-1.76 [facility] ([place]) Comment on above: Result Comment: No te - New Reference Range in effect 19 Performed By: #### F T3, ANEU, TSH, GFR, ADIFF, CBC, LD, CMP, FT4, JUANCARLOS ####[place] [address] LABORATORYOrdered By: SYSTEM SYSTEM on 01-19-2023 Albumin BCP dye [Mass/Vol] 3.4 G/dL Normal 3.2 - 4.8 G/dL ADM SS Albumin/Globulin [Mass ratio] 0.9 {ratio} Normal 0.9 - 1.6 ratio AH ADM SS ALP [Catalytic activity/Vol] 126 U/L Normal 38 - 126 U/L ADM SS ALT No additional P-5'-P [Catalytic activity/Vol] 18 U/L Normal 12 - 55 U/L ADM SS AST [Catalytic activity/Vol] 19 U/L Normal 8 - 34 U/L ADM SS Basophils (Bld) [#/Vol] 0.1 103/mcL Normal 0.0 - 0.3 10^3/mcL Workflow SS Basophils/100 WBC (Bld) 0.9 % Normal 0.0 - 2.5 % Workflow SS Bilirubin [Mass/Vol] 0.60 mg/dL Normal 0.20 - 1.20 mg/dL ADM SS Comment on above: Interpretive Data: U se of this assay is not recommended for patients undergoing treatment with eltrombopag due to the potential for falsely elevated results. Calcium [Mass/Vol] 8.7 mg/dL Normal 8.7 - 10. 4 mg/dL ADM SS Chloride [Moles/Vol] 107 mmol/L Normal 98 - 11 0 mEq/L AH ADM SS CO2 [Moles/Vol] 29 mmol/L Normal 22 - 32 mEq/L ADM SS Cortisol [Mass/Vol] 22.7 ug/dL Invalid Interpretation Code AH ADM SS Comment on above: Interpretive Data: C ortisol AM Reference Range 6.5-26.0 mcg/dL Cortisol PM Reference Range 3.5-15.0 mcg/dL Creatinine [Mass/Vol] 1.34 mg/dL Normal 0.60 - 1.40 mg/dL ADM SS Electrolyte Balance 5.0 mEq/L Normal 4.0 - 15 .0 mEq/L ADM SS Eosinophils (Bld) [#/Vol] 0.4 103/mcL Normal 0.0 - 0.7 10^3/mcL Workflow SS Eosinophils/100 WBC (Bld) 4.2 % Normal 0.0 - 6.0 % Workflow SS Erythrocyte distribution width (RBC) [Ratio] 22.5 % High 11.5 - 15.5 % Workflow SS Free T3 [Mass/Vol] 3.72 pg/mL Normal 2.30 - 4. 20 pg/mL ADM SS Free T4 [Mass/Vol] 1.07 ng/dL Normal 0.89 - 1. 76 ng/dL ADM SS Comment on above: Interpretive Data: * *Note - New Reference Range in effect 19 GFR/1.73 sq M.predicted among blacks MDRD (S/P/Bld) [Vol rate/Area] ml/min/1.73sqm Invalid Interpretation Code ADM SS Comment on above: Interpretive Data: GFR Population mean for , Non- Americans Ages 20-29 = 116 mL/min/1.73 sq.m. Ages 30-39 = 107 mL/min/1.73 sq.m. Ages 40-49 = 99 mL/min/1.73 sq.m. Ages 50-59 = 93 mL/min/1.73 sq.m. Ages 60-69 = 85 mL/min/1.73 sq.m. Ages 70+ = 75 mL/min/1.73 sq.m. Chronic Kidney Disease: Less than 60 mL/min/1.73 square meters End Stage Renal Disease: Less than 15 mL/min/1.73 square meters GFR/1.73 sq M.predicted among non-blacks MDRD (S/P/Bld) [Vol rate/Area] 58 ml/min/1.73sqm Invalid Interpretation Code ADM SS Comment on above: Interpretive Data: GFR Population mean for , Non- Americans Ages 20-29 = 116 mL/min/1.73 sq.m. Ages 30-39 = 107 mL/min/1.73 sq.m. Ages 40-49 = 99 mL/min/1.73 sq.m. Ages 50-59 = 93 mL/min/1.73 sq.m. Ages 60-69 = 85 mL/min/1.73 sq.m. Ages 70+ = 75 mL/min/1.73 sq.m. Chronic Kidney Disease: Less than 60 mL/min/1.73 square meters End Stage Renal Disease: Less than 15 mL/min/1.73 square meters Globulin 3.6 G/dL Normal 1.5 - 3.8 G/dL ADM SS Glucose [Mass/Vol] 163 mg/dL High 70 - 110 mg/dL ADM SS Hematocrit (Bld) [Volume fraction] 44.4 % Normal 40.0 - 52.0 % Workflow SS Hemoglobin (Bld) [Mass/Vol] 14.3 G/dL Normal 13.0 - 17.5 G/dL Workflow SS LDH Lactate to pyruvate reaction [Catalytic activity/Vol] 220 1 Normal 120 - 246 U/L ADM SS Lymphocytes (Bld) [#/Vol] 1.0 103/mcL Normal 0.9 - 4.3 10^3/mcL Workflow SS Lymphocytes/100 WBC (Bld) 11.0 % Low 20.0 - 40.0 % Workflow SS MCH (RBC) [Entitic mass] 27.8 pg Normal 27.0 - 33.0 pg Workflow SS MCHC 32.3 G/dL Normal 32.0 - 36.0 G/dL Workflow SS MCV (RBC) [Entitic vol] 86.3 fL Normal 81.0 - 100.0 fL Workflow SS Monocytes (Bld) [#/Vol] 0.5 103/mcL Normal 0.1 - 1.4 10^3/mcL Workflow SS Monocytes/100 WBC (Bld) 5.4 % Normal 2.0 - 13.0 % AH Workflow SS Neutrophils (Bld) [#/Vol] 7.1 103/mcL Normal 2.3 - 8.1 10^3/mcL AH Workflow SS Neutrophils/100 WBC (Bld) 78.5 % High 50.0 - 75.0 % AH Workflow SS Platelet mean volume (Bld) [Entitic vol] 7.0 fL Normal 6.4 - 10.5 fL AH Workflow SS Platelets (Bld) [#/Vol] 245 103/mcL Normal 150 - 450 10^3/mcL AH Workflow SS Potassium [Moles/Vol] 4.2 mmol/L Normal 3.5 - 5.0 mEq/L AH ADM SS Protein [Mass/Vol] 7.0 G/dL Normal 5.7 - 8.2 G/dL AH ADM SS Comment on above: Interpretive Data: * *Note - New Reference Range in effect 19 RBC (Bld) [#/Vol] 5.14 106/mcL Normal 4.50 - 6.0 0 10^6/mcL AH Workflow SS Sodium [Moles/Vol] 141 mmol/L Normal 136 - 145 mEq/L AH ADM SS TSH Qn 7.932 mIU/mL High 0.550 - 4.780 mIU/mL AH ADM SS Comment on above: Interpretive Data: * *Note - New Reference Range in effect 19 Urea nitrogen [Mass/Vol] 19.0 mg/dL Normal 8.0 - 22.0 mg/dL AH ADM SS Urea nitrogen/Creatinine [Mass ratio] 14.2 ratio Normal 10.0 - 22.0 ratio AH ADM SS WBC (Bld) [#/Vol] 9.1 103/mcL Normal 4.5 - 10.8 10^3/mcL AH Workflow SS LDHon 01-19-2023 LDH 220 U/L Normal 120-246 [facility] ([place]) Comment on above: Performed By: #### F T3, ANEU, TSH, GFR, ADIFF, CBC, LD, CMP, FT4, JUANCARLOS ####[address] [address] TSHon 01-19-2023 TSH 7.932 mIU/mL High 0.550-4.780 [facility] ([place]) Comment on above: Result Comment: No te - New Reference Range in effect 19 Performed By: #### F T3, ANEU, TSH, GFR, ADIFF, CBC, LD, CMP, FT4, JUANCARLOS ####[address] [address] Beta 2 glycoprotein 1 Ab IgA and IgG and IgM panel (S)on 11-29-2022 Beta 2 glycoprotein 1 IgA Qn (S) <0.6 Normal <20.0 [facility] Comment on above: Result Comment: Elev ated levels of IgA anti-Beta 2 Glycoprotein-I have not been included in the laboratory criteria for anti-phospholipid syndrome according to an international consensus (J Thromb Haemost 2006 4:295). It may be helpful in identifying subgroups of patients at risk for specific clinical manifestations of anti-phospholipid syndrome. A significant proportion of IgA anti-Beta 2 Glycoprotein- positive tests has no apparent association with any clinical manifestation of anti-phospholipid syndrome. Performed By: #### 5 6152-2 #### KITTY Stokes ([id number]) [facility] ([facility]) [address] [place] [address] Beta 2 glycoprotein 1 IgG Qn (S) <1.4 Normal <20.0 [facility] Comment on above: Result Comment: Elev ated levels of IgG anti-Beta 2 Glycoprotein-I on 2 occasions at least 12 weeks apart are laboratory criteria for anti-phospholipid syndrome according to an international consensus (J Thromb Haemost 2006 4:295). Performed By: #### 5 6152-2 #### KITTY Stokes ([id number]) [facility] ([facility]) [address] [place] [address] Beta 2 glycoprotein 1 IgM Qn (S) <0.2 Normal <20.0 [facility] Comment on above: Result Comment: Elev ated levels of IgM anti-Beta 2 Glycoprotein-I on 2 occasions at least 12 weeks apart are laboratory criteria for anti-phospholipid syndrome according to an international consensus (J Thromb Haemost 2006 4:295). IgM anti-Beta 2 Glycoprotein-I tends to give false positive results in the low positive range, especially in the presence of rheumatoid factor or cryoglobulins. Performed By: #### 5 6152-2 #### KITTY Stokes ([id number]) [facility] ([facility]) [id number] [place] [address] Cardiolipin Ab IA Qn (S)on Cardiolipin IgA Qn <0.5 Normal <20.0 [facility] Comment on above: Result Comment: Elev ated levels of IgA anti-cardiolipin have not been included in the laboratory criteria for anti-phospholipid syndrome according to an international consensus (J Thromb Haemost 2006 4:295). It may be helpful in identifying subgroups of patients at risk for specific clinical manifestations of anti-phospholipid syndrome. Performed By: #### 3 180-7 #### KITTY Stokes ([id number]) [facility] ([facility]) [address] [place], [place] [address] Cardiolipin IgG IA Qn (S) <1.6 Normal <20.0 [facility] Comment on above: Result Comment: Elev ated levels of IgG anti-cardiolipin on 2 occasions at least 12 weeks apart are laboratory criteria for anti-phospholipid syndrome according to an international consensus (J Thromb Haemost 2006 4:295). Performed By: #### 3 180-7 #### KITTY Stokes ([id number]) [facility] ([facility]) [address] [place] [address] Cardiolipin IgM IA Qn (S) <0.2 Normal <20.0 [facility] Comment on above: Result Comment: Elev ated levels of IgM anti-cardiolipin on 2 occasions at least 12 weeks apart are laboratory criteria for anti-phospholipid syndrome according to an international consensus (J Thromb Haemost 2006 4:295). IgM anti-cardiolipin tends to give false positive results in the low positive range, especially in the presence of rheumatoid factor or cryoglobulins. Performed By: #### 3 180-7 #### KITTY Stokes ([id number]) [facility] ([facility]) [address] [place] [address] [facility] TransthoracicOrdere d By: Rivka Elkins on 11-27-2022 LV A4C EF 66.3 [facility] Work Phone: [facility] Work Phone: [facility] [address], [address], [place] [address] TRANSTHORACIC ECHOCARDIOGRAM REPORT Patient Name: LYNDSAY LOPEZ Reading Physician: Niko Elkins MD Study Date: 11/23/2022 Ordering Provider: Niko ELKINS MRN/PID: [id number] Fellow: Nurse: Mary Jo Oneil RN Date of /Age: 4 1980 / 42 years 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 Technically challenging study due to poor acoustic windows and body habitus. Definity used as a contrast agent for endocardial border definition. Total contrast used for this procedure was 2 mL via IV push. PHYSICIAN INTERPRETATION: Left Ventricle: The left ventricular systolic function is normal, with an estimated ejection fraction of 65-70%. There are no regional wall motion abnormalities. The left ventricular cavity size is normal. Spectral Doppler shows a normal pattern of left ventricular diastolic filling. Left Atrium: The left atrium is normal in size. Right Ventricle: The right ventricle is mildly enlarged. Unable to determine right ventricular systolic function. Right Atrium: The right atrium is normal in size. Aortic Valve: The aortic valve was not well visualized. There is no evidence of aortic valve regurgitation. Mitral Valve: The mitral valve was not well visualized. There is no evidence of mitral valve regurgitation. Tricuspid Valve: The tricuspid valve was not well visualized. There is trace tricuspid regurgitation. Pulmonic Valve: The pulmonic valve is not well visualized. The pulmonic valve regurgitation was not well visualized. Pericardium: There is no pericardial effusion noted. Aorta: The aortic root is normal. CONCLUSIONS: 1. Left ventricular systolic function is normal with a 65-70% estimated ejection fraction. 2. Poorly visualized anatomical structures due to suboptimal image quality. QUANTITATIVE DATA SUMMARY: LV SYSTOLIC FUNCTION BY 2D PLANIMETRY (MOD): Normal Ranges: EF-A4C View: 66.3 % (>=55%) EF-A2C View: 62.2 % EF-Biplane: 63.3 % LV DIASTOLIC FUNCTION: Normal Ranges: MV Peak A: 0.83 m/s (0.42-0.7 m/s) MV e' 1.22 m/s (>8.0) MV lateral e' 0.11 m/s MV medial e' 0.09 m/s MV DT: 187 msec (150-240 msec) Niko Elkins MD Electronically signed on 11/27/2022 at 4:47:40 PM Final Rivka Tim MD - 11/27/2022 [facility] [address], [address], [place] [id number] TRANSTHORACIC ECHOCARDIOGRAM REPORT Patient Name: LYNDSAY Chowdhury Physician: Niko Elkins MD Study Date: 11/23/2022 Ordering Provider: Niko ELKINS MRN/PID: [id number] Fellow: Nurse: Mary Jo Oneil RN Date of /Age: 4 1980 / 42 years Fleet Dispatch Manager: Carmencita Bernard GARRETT Gender: M Additional Staff: Height: 172.72 cm Admit Date: Weight: 163.30 kg Admission Status: Outpatient BSA: 2.62 m2 Department Location: [facility] Blood Pressure: 122 /58 mmHg Study Type: TRANSTHORACIC ECHO (TTE) COMPLETE Diagnosis/ICD: Shortness of breath-R06.02; Typical atrial flutter-I48.3 Indication: A Flutter, SOB CPT Code: Echo Complete w Full Doppler-80323 Study Detail: The following Echo studies were performed: 2D, M-Mode, Doppler and color flow. Technically challenging study due to poor acoustic windows and body habitus. Definity used as a contrast agent for endocardial border definition. Total contrast used for this procedure was 2 mL via IV push. PHYSICIAN INTERPRETATION: Left Ventricle: The left ventricular systolic function is normal, with an estimated ejection fraction of 65-70%. There are no regional wall motion abnormalities. The left ventricular cavity size is normal. Spectral Doppler shows a normal pattern of left ventricular diastolic filling. Left Atrium: The left atrium is normal in size. Right Ventricle: The right ventricle is mildly enlarged. Unable to determine right ventricular systolic function. Right Atrium: The right atrium is normal in size. Aortic Valve: The aortic valve was not well visualized. There is no evidence of aortic valve regurgitation. Mitral Valve: The mitral valve was not well visualized. There is no evidence of mitral valve regurgitation. Tricuspid Valve: The tricuspid valve was not well visualized. There is trace tricuspid regurgitation. Pulmonic Valve: The pulmonic valve is not well visualized. The pulmonic valve regurgitation was not well visualized. Pericardium: There is no pericardial effusion noted. Aorta: The aortic root is normal. CONCLUSIONS: 1. Left ventricular systolic function is normal with a 65-70% estimated ejection fraction. 2. Poorly visualized anatomical structures due to suboptimal image quality. QUANTITATIVE DATA SUMMARY: LV SYSTOLIC FUNCTION BY 2D PLANIMETRY (MOD): Normal Ranges: EF-A4C View: 66.3 % (>=55%) EF-A2C View: 62.2 % EF-Biplane: 63.3 % LV DIASTOLIC FUNCTION: Normal Ranges: MV Peak A: 0.83 m/s (0.42-0.7 m/s) MV e' 1.22 m/s (>8.0) MV lateral e' 0.11 m/s MV medial e' 0.09 m/s MV DT: 187 msec (150-240 msec) [id number] Rivka Elkins MD Electronically signed on 11/27/2022 at 4:47:40 PM Final [facility] Work Phone: .Auto Diffon 11-24-2022 Basophil, Absolute 0.1 10 3/mcL Normal 0.0-0.3 [facility] ([place]) Comment on above: Performed By: #### F T4, JUANCARLOS, ANEU, FT3, TSH, CMP, GFR, CBC, ADIFF, LD ####[address] [address] Basophils/100 WBC (Bld) 0.7 % Normal 0.0-2.5 [facility] ([place]) Comment on above: Performed By: #### F T4, JUANCARLOS, ANEU, FT3, TSH, CMP, GFR, CBC, ADIFF, LD ####[address] [address] Eosinophil, Absolute 0.9 10 3/mcL High 0.0-0.7 [facility] ([place]) Comment on above: Performed By: #### F T4, JUANCARLOS, ANEU, FT3, TSH, CMP, GFR, CBC, ADIFF, LD ####[address] [address] Eosinophils/100 WBC (Bld) 12.1 % High 0.0-6.0 [facility] ([place]) Comment on above: Performed By: #### F T4, JUANCARLOS, ANEU, FT3, TSH, CMP, GFR, CBC, ADIFF, LD ####[address] [address] Lymphocyte, Absolute 1.0 10 3/mcL Normal 0.9-4.3 [facility] ([place]) Comment on above: Performed By: #### F T4, JUANCARLOS, ANEU, FT3, TSH, CMP, GFR, CBC, ADIFF, LD ####[address] [address] Lymphocytes/100 WBC (Bld) 14.2 % Low 20.0-40.0 [facility] ([place]) Comment on above: Performed By: #### F T4, JUANCARLOS, ANEU, FT3, TSH, CMP, GFR, CBC, ADIFF, LD ####[address] [address] Monocyte, Absolute 0.6 10 3/mcL Normal 0.1-1.4 [facility] ([place]) Comment on above: Performed By: #### F T4, JUANCARLOS, ANEU, FT3, TSH, CMP, GFR, CBC, ADIFF, LD ####[address] [address] Monocytes/100 WBC (Bld) 7.7 % Normal 2.0-13.0 [facility] ([place]) Comment on above: Performed By: #### F T4, JUANCARLOS, ANEU, FT3, TSH, CMP, GFR, CBC, ADIFF, LD ####[address] [address] Neutrophils/100 WBC (Bld) 65.3 % Normal 50.0-75.0 [facility] ([place]) Comment on above: Performed By: #### F T4, JUANCARLOS, ANEU, FT3, TSH, CMP, GFR, CBC, ADIFF, LD ####[address] [address] .GFRon 11-24-2022 GFR >60 Normal [facility] ([place]) Comment on above: Result Comment: GFR Population mean for , Non- Americans Ages 20-29 = 116 mL/min/1.73 sq.m. Ages 30-39 = 107 mL/min/1.73 sq.m. Ages 40-49 = 99 mL/min/1.73 sq.m. Ages 50-59 = 93 mL/min/1.73 sq.m. Ages 60-69 = 85 mL/min/1.73 sq.m. Ages 70+ = 75 mL/min/1.73 sq.m.Chronic Kidney Disease: Less than 60 mL/min/1.73 square metersEnd Stage Renal Disease: Less than 15 mL/min/1.73 square meters Performed By: #### F T4, JUANCARLOS, ANEU, FT3, TSH, CMP, GFR, CBC, ADIFF, LD ####[address] [address] GFR Non- 58 ml/min/1.73sqm Normal [facility] ([place]) Comment on above: Result Comment: GFR Population mean for , Non- Americans Ages 20-29 = 116 mL/min/1.73 sq.m. Ages 30-39 = 107 mL/min/1.73 sq.m. Ages 40-49 = 99 mL/min/1.73 sq.m. Ages 50-59 = 93 mL/min/1.73 sq.m. Ages 60-69 = 85 mL/min/1.73 sq.m. Ages 70+ = 75 mL/min/1.73 sq.m.Chronic Kidney Disease: Less than 60 mL/min/1.73 square metersEnd Stage Renal Disease: Less than 15 mL/min/1.73 square meters Performed By: #### F T4, JUANCARLOS, ANEU, FT3, TSH, CMP, GFR, CBC, ADIFF, LD ####[address] [address] .NEUABSon 11-24-2022 Neutrophil, Absolute 4.8 10 3/mcL Normal 2.3-8.1 [facility] ([place]) Comment on above: Performed By: #### F T4, JUANCARLOS, ANEU, FT3, TSH, CMP, GFR, CBC, ADIFF, LD ####[place] [address] CBCon 11-24-2022 Erythrocyte distribution width (RBC) [Ratio] 19.3 % High 11.5-15.5 [facility] ([place]) Comment on above: Performed By: #### F T4, JUANCARLOS, ANEU, FT3, TSH, CMP, GFR, CBC, ADIFF, LD ####[place] [address] Hematocrit (Bld) [Volume fraction] 41.3 % Normal 40.0-52.0 [facility] ([place]) Comment on above: Performed By: #### F T4, JUANCARLOS, ANEU, FT3, TSH, CMP, GFR, CBC, ADIFF, LD ####[place] [address] Hgb 13.1 G/dL Normal 13.0-17.5 [facility] ([place]) Comment on above: Performed By: #### F T4, JUANCARLOS, ANEU, FT3, TSH, CMP, GFR, CBC, ADIFF, LD ####[place] [address] MCH (RBC) [Entitic mass] 27.0 pg Normal 27.0-33.0 [facility] ([place]) Comment on above: Performed By: #### F T4, JUANCARLOS, ANEU, FT3, TSH, CMP, GFR, CBC, ADIFF, LD ####[place] [address] MCHC 31.8 G/dL Low 32.0-36.0 [facility] ([place]) Comment on above: Performed By: #### F T4, JUANCARLOS, ANEU, FT3, TSH, CMP, GFR, CBC, ADIFF, LD ####[place] [address] MCV (RBC) [Entitic vol] 85.0 fL Normal 81.0-100.0 [facility] ([place]) Comment on above: Performed By: #### F T4, JUANCARLOS, ANEU, FT3, TSH, CMP, GFR, CBC, ADIFF, LD ####[place] [address] Platelet 233 10 3/mcL Normal 150-450 [facility] ([place]) Comment on above: Performed By: #### F T4, JUANCARLOS, ANEU, FT3, TSH, CMP, GFR, CBC, ADIFF, LD ####[place] [address] Platelet mean volume (Bld) [Entitic vol] 7.7 fL Normal 6.4-10.5 [facility] ([place]) Comment on above: Performed By: #### F T4, JUANCARLOS, ANEU, FT3, TSH, CMP, GFR, CBC, ADIFF, LD ####[place] [address] RBC 4.86 10 6/mcL Normal 4.50-6.00 [facility] ([place]) Comment on above: Performed By: #### F T4, JUANCARLOS, ANEU, FT3, TSH, CMP, GFR, CBC, ADIFF, LD ####[place] [address] WBC 7.4 10 3/mcL Normal 4.5-10.8 [facility] ([place]) Comment on above: Performed By: #### F T4, JUANCARLOS, ANEU, FT3, TSH, CMP, GFR, CBC, ADIFF, LD ####[place] [address] CMPon 11-24-2022 Albumin Level 3.5 G/dL Normal 3.2-4.8 [facility] ([place]) Comment on above: Performed By: #### F T4, JUANCARLOS, ANEU, FT3, TSH, CMP, GFR, CBC, ADIFF, LD ####[address] [address] Albumin/Globulin [Mass ratio] 0.9 {ratio} Normal 0.9-1.6 [facility] ([place]) Comment on above: Performed By: #### F T4, JUANCARLOS, ANEU, FT3, TSH, CMP, GFR, CBC, ADIFF, LD ####[address] [address] ALP [Catalytic activity/Vol] 123 U/L Normal 38-126 [facility]) Comment on above: Performed By: #### F T4, JUANCARLOS, ANEU, FT3, TSH, CMP, GFR, CBC, ADIFF, LD ####[address] [address] ALT [Catalytic activity/Vol] 19 U/L Normal 12-55 [facility]) Comment on above: Performed By: #### F T4, JUANCARLOS, ANEU, FT3, TSH, CMP, GFR, CBC, ADIFF, LD ####[place] [id number] AST [Catalytic activity/Vol] 20 U/L Normal 8-34 [facility]) Comment on above: Performed By: #### F T4, JUANCARLOS, ANEU, FT3, TSH, CMP, GFR, CBC, ADIFF, LD ####[place] [id number] Bili Total 0.50 mg/dL Normal 0.20-1.20 [facility] ([place]) Comment on above: Result Comment: Use of this assay is not recommended for patients undergoing treatment with eltrombopag due to the potential for falsely elevated results. Performed By: #### F T4, JUANCARLOS, ANEU, FT3, TSH, CMP, GFR, CBC, ADIFF, LD ####[place] [address] BUN/Creatinine Ratio 11.2 ratio Normal 10.0-22.0 [facility] ([place]) Comment on above: Performed By: #### F T4, JUANCARLOS, ANEU, FT3, TSH, CMP, GFR, CBC, ADIFF, LD ####[address] [address] Calcium [Mass/Vol] 8.9 mg/dL Normal 8.7-10.4 [facility] ([place]) Comment on above: Performed By: #### F T4, JUANCARLOS, ANEU, FT3, TSH, CMP, GFR, CBC, ADIFF, LD ####[address] [address] Chloride [Moles/Vol] 106 mmol/L Normal 98-110 [facility] ([place]) Comment on above: Performed By: #### F T4, JUANCARLOS, ANEU, FT3, TSH, CMP, GFR, CBC, ADIFF, LD ####[address] [address] CO2 [Moles/Vol] 28 mmol/L Normal 22-32 [facility] ([place]) Comment on above: Performed By: #### F T4, JUANCARLOS, ANEU, FT3, TSH, CMP, GFR, CBC, ADIFF, LD ####[address] [address] Creatinine [Mass/Vol] 1.34 mg/dL Normal 0.60-1.40 [facility] ([place]) Comment on above: Performed By: #### F T4, JUANCARLOS, ANEU, FT3, TSH, CMP, GFR, CBC, ADIFF, LD ####[place] [address] Electrolyte Balance 5.0 mEq/L Normal 4.0-15.0 [facility] ([place]) Comment on above: Performed By: #### F T4, JUANCARLOS, ANEU, FT3, TSH, CMP, GFR, CBC, ADIFF, LD ####[place] [id number] Globulin 3.7 G/dL Normal 1.5-3.8 [facility] ([place]) Comment on above: Performed By: #### F T4, JUANCARLOS, ANEU, FT3, TSH, CMP, GFR, CBC, ADIFF, LD ####[address] [address] Glucose [Mass/Vol] 123 mg/dL High 70-110 [facility] ([place]) Comment on above: Performed By: #### F T4, JUANCARLOS, ANEU, FT3, TSH, CMP, GFR, CBC, ADIFF, LD ####[address] [address] Potassium [Moles/Vol] 4.8 mmol/L Normal 3.5-5.0 [facility] ([place]) Comment on above: Performed By: #### F T4, JUANCARLOS, ANEU, FT3, TSH, CMP, GFR, CBC, ADIFF, LD ####[place] [id number] Sodium [Moles/Vol] 139 mmol/L Normal 136-145 [facility] ([place]) Comment on above: Performed By: #### F T4, JUANCARLOS, ANEU, FT3, TSH, CMP, GFR, CBC, ADIFF, LD ####[place] [address] Total Protein 7.2 G/dL Normal 5.7-8.2 [facility] ([place]) Comment on above: Result Comment: No te - New Reference Range in effect 19 Performed By: #### F T4, JUANCARLOS, ANEU, FT3, TSH, CMP, GFR, CBC, ADIFF, LD ####[place] [address] Urea nitrogen [Mass/Vol] 15.0 mg/dL Normal 8.0-22.0 [facility] ([place]) Comment on above: Performed By: #### F T4, JUANCARLOS, ANEU, FT3, TSH, CMP, GFR, CBC, ADIFF, LD ####[place] [address] CORTon 11-24-2022 Cortisol Level 12.6 mcg/dL Normal [facility] ([place]) Comment on above: Result Comment: Juancarlos isol AM Reference Range 6.5-26.0 mcg/dLCortisol PM Reference Range 3.5-15.0 mcg/dL Performed By: #### F T4, JUANCARLOS, ANEU, FT3, TSH, CMP, GFR, CBC, ADIFF, LD ####[place] [address] [address] [place] [address] FT3on 11-24-2022 Free T3 [Mass/Vol] 3.14 pg/mL Normal 2.30-4.20 [facility] ([place]) Comment on above: Performed By: #### F T4, JUANCARLOS, ANEU, FT3, TSH, CMP, GFR, CBC, ADIFF, LD ####[address] [address] FT4on 11-24-2022 Free T4 [Mass/Vol] 1.01 ng/dL Normal 0.89-1.76 [facility] ([place]) Comment on above: Result Comment: No te - New Reference Range in effect 19 Performed By: #### F T4, JUANCARLOS, ANEU, FT3, TSH, CMP, GFR, CBC, ADIFF, LD ####[place] [address] LABORATORYOrdered By: SYSTEM SYSTEM on 11-24-2022 Albumin BCP dye [Mass/Vol] 3.5 G/dL Invalid Interpretation Code 3.2 - 4.8 G/dL ADM SS Albumin/Globulin [Mass ratio] 0.9 {ratio} Invalid Interpretation Code 0.9 - 1.6 ratio ADM SS ALP [Catalytic activity/Vol] 123 U/L Invalid Interpretation Code 38 - 126 U/L ADM SS ALT No additional P-5'-P [Catalytic activity/Vol] 19 U/L Invalid Interpretation Code 12 - 55 U/L ADM SS AST [Catalytic activity/Vol] 20 U/L Invalid Interpretation Code 8 - 34 U/L ADM SS Basophils (Bld) [#/Vol] 0.1 103/mcL Invalid Interpretation Code 0.0 - 0.3 10^3/mcL Workflow SS Basophils/100 WBC (Bld) 0.7 % Invalid Interpretation Code 0.0 - 2.5 % Workflow SS Bilirubin [Mass/Vol] 0.50 mg/dL Invalid Interpretation Code 0.20 - 1.20 mg/dL ADM SS Comment on above: Interpretive Data: U se of this assay is not recommended for patients undergoing treatment with eltrombopag due to the potential for falsely elevated results. Calcium [Mass/Vol] 8.9 mg/dL Invalid Interpretation Code 8.7 - 10.4 mg/dL AH ADM SS Chloride [Moles/Vol] 106 mmol/L Invalid Interpretation Code 98 - 110 mEq/L AH ADM SS CO2 [Moles/Vol] 28 mmol/L Invalid Interpretation Code 22 - 32 mEq/L AH ADM SS Cortisol [Mass/Vol] 12.6 ug/dL Invalid Interpretation Code ADM SS Comment on above: Interpretive Data: C ortisol AM Reference Range 6.5-26.0 mcg/dL Cortisol PM Reference Range 3.5-15.0 mcg/dL Creatinine [Mass/Vol] 1.34 mg/dL Invalid Interpretation Code 0.60 - 1.40 mg/dL ADM SS Electrolyte Balance 5.0 mEq/L Invalid Interpretation Code 4.0 - 15.0 mEq/L ADM SS Eosinophils (Bld) [#/Vol] 0.9 103/mcL Invalid Interpretation Code 0.0 - 0.7 10^3/mcL AH Workflow SS Eosinophils/100 WBC (Bld) 12.1 % Invalid Interpretation Code 0.0 - 6.0 % Workflow SS Erythrocyte distribution width (RBC) [Ratio] 19.3 % Invalid Interpretation Code 11.5 - 15.5 % AH Workflow SS Free T3 [Mass/Vol] 3.14 pg/mL Invalid Interpretation Code 2.30 - 4.20 pg/mL ADM SS Free T4 [Mass/Vol] 1.01 ng/dL Invalid Interpretation Code 0.89 - 1.76 ng/dL ADM SS Comment on above: Interpretive Data: * *Note - New Reference Range in effect 19 GFR/1.73 sq M.predicted among blacks MDRD (S/P/Bld) [Vol rate/Area] ml/min/1.73sqm Invalid Interpretation Code ADM SS Comment on above: Interpretive Data: GFR Population mean for , Non- Americans Ages 20-29 = 116 mL/min/1.73 sq.m. Ages 30-39 = 107 mL/min/1.73 sq.m. Ages 40-49 = 99 mL/min/1.73 sq.m. Ages 50-59 = 93 mL/min/1.73 sq.m. Ages 60-69 = 85 mL/min/1.73 sq.m. Ages 70+ = 75 mL/min/1.73 sq.m. Chronic Kidney Disease: Less than 60 mL/min/1.73 square meters End Stage Renal Disease: Less than 15 mL/min/1.73 square meters GFR/1.73 sq M.predicted among non-blacks MDRD (S/P/Bld) [Vol rate/Area] 58 ml/min/1.73sqm Invalid Interpretation Code ADM SS Comment on above: Interpretive Data: GFR Population mean for , Non- Americans Ages 20-29 = 116 mL/min/1.73 sq.m. Ages 30-39 = 107 mL/min/1.73 sq.m. Ages 40-49 = 99 mL/min/1.73 sq.m. Ages 50-59 = 93 mL/min/1.73 sq.m. Ages 60-69 = 85 mL/min/1.73 sq.m. Ages 70+ = 75 mL/min/1.73 sq.m. Chronic Kidney Disease: Less than 60 mL/min/1.73 square meters End Stage Renal Disease: Less than 15 mL/min/1.73 square meters Globulin 3.7 G/dL Invalid Interpretation Code 1.5 - 3.8 G/dL ADM SS Glucose [Mass/Vol] 123 mg/dL Invalid Interpretation Code 70 - 110 mg/dL ADM SS Hematocrit (Bld) [Volume fraction] 41.3 % Invalid Interpretation Code 40.0 - 52.0 % Workflow SS Hemoglobin (Bld) [Mass/Vol] 13.1 G/dL Invalid Interpretation Code 13.0 - 17.5 G/dL Workflow SS LDH Lactate to pyruvate reaction [Catalytic activity/Vol] 249 1 Invalid Interpretation Code 120 - 246 U/L ADM SS Lymphocytes (Bld) [#/Vol] 1.0 103/mcL Invalid Interpretation Code 0.9 - 4.3 10^3/mcL Workflow SS Lymphocytes/100 WBC (Bld) 14.2 % Invalid Interpretation Code 20.0 - 40.0 % Workflow SS MCH (RBC) [Entitic mass] 27.0 pg Invalid Interpretation Code 27.0 - 33.0 pg Workflow SS MCHC 31.8 G/dL Invalid Interpretation Code 32.0 - 36.0 G/dL Workflow SS MCV (RBC) [Entitic vol] 85.0 fL Invalid Interpretation Code 81.0 - 100.0 fL AH Workflow SS Monocytes (Bld) [#/Vol] 0.6 103/mcL Invalid Interpretation Code 0.1 - 1.4 10^3/mcL AH Workflow SS Monocytes/100 WBC (Bld) 7.7 % Invalid Interpretation Code 2.0 - 13.0 % AH Workflow SS Neutrophils (Bld) [#/Vol] 4.8 103/mcL Invalid Interpretation Code 2.3 - 8.1 10^3/mcL AH Workflow SS Neutrophils/100 WBC (Bld) 65.3 % Invalid Interpretation Code 50.0 - 75.0 % AH Workflow SS Platelet mean volume (Bld) [Entitic vol] 7.7 fL Invalid Interpretation Code 6.4 - 10.5 fL AH Workflow SS Platelets (Bld) [#/Vol] 233 103/mcL Invalid Interpretation Code 150 - 450 10^3/mcL AH Workflow SS Potassium [Moles/Vol] 4.8 mmol/L Invalid Interpretation Code 3.5 - 5.0 mEq/L AH ADM SS Protein [Mass/Vol] 7.2 G/dL Invalid Interpretation Code 5.7 - 8.2 G/dL AH ADM SS Comment on above: Interpretive Data: * *Note - New Reference Range in effect 19 RBC (Bld) [#/Vol] 4.86 106/mcL Invalid Interpretation Code 4.50 - 6.00 10^6/mcL AH Workflow SS Sodium [Moles/Vol] 139 mmol/L Invalid Interpretation Code 136 - 145 mEq/L AH ADM SS TSH Qn 5.707 mIU/mL Invalid Interpretation Code 0.550 - 4.780 mIU/mL AH ADM SS Comment on above: Interpretive Data: * *Note - New Reference Range in effect 19 Urea nitrogen [Mass/Vol] 15.0 mg/dL Invalid Interpretation Code 8.0 - 22.0 mg/dL AH ADM SS Urea nitrogen/Creatinine [Mass ratio] 11.2 ratio Invalid Interpretation Code 10.0 - 22.0 ratio AH ADM SS WBC (Bld) [#/Vol] 7.4 103/mcL Invalid Interpretation Code 4.5 - 10.8 10^3/mcL AH Workflow SS LDHon 11-24-2022 LDH 249 U/L High 120-246 [facility] ([place]) Comment on above: Performed By: #### F T4, JUANCARLOS, ANEU, FT3, TSH, CMP, GFR, CBC, ADIFF, LD ####[place] [address] [address] [place] [address] TSHon 11-24-2022 TSH 5.707 mIU/mL High 0.550-4.780 [facility] ([place]) Comment on above: Result Comment: No te - New Reference Range in effect 19 Performed By: #### F T4, JUANCARLOS, ANEU, FT3, TSH, CMP, GFR, CBC, ADIFF, LD ####[place] [address] [address] [place] [address] TRANSTHORACIC ECHO (TTE) COM PLETEon 11-23-2022 TRANSTHORACIC ECHO (TTE) COMPLETE [facility] [address], [address], [place] [address] TRANSTHORACIC ECHOCARDIOGRAM REPORT Patient Name: LYNDSAY Chowdhury Physician: Niko Elkins MD Study Date: 11/23/2022 Ordering Provider: Niko ELKINS MRN/PID: [id number] Fellow: Nurse: Mary Jo Oneil RN Date of /Age: 4 1980 / 42 years 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 Technically challenging study due to poor acoustic windows and body habitus. Definity used as a contrast agent for endocardial border definition. Total contrast used for this procedure was 2 mL via IV push. PHYSICIAN INTERPRETATION: Left Ventricle: The left ventricular systolic function is normal, with an estimated ejection fraction of 65-70%. There are no regional wall motion abnormalities. The left ventricular cavity size is normal. Spectral Doppler shows a normal pattern of left ventricular diastolic filling. Left Atrium: The left atrium is normal in size. Right Ventricle: The right ventricle is mildly enlarged. Unable to determine right ventricular systolic function. Right Atrium: The right atrium is normal in size. Aortic Valve: The aortic valve was not well visualized. There is no evidence of aortic valve regurgitation. Mitral Valve: The mitral valve was not well visualized. There is no evidence of mitral valve regurgitation. Tricuspid Valve: The tricuspid valve was not well visualized. There is trace tricuspid regurgitation. Pulmonic Valve: The pulmonic valve is not well visualized. The pulmonic valve regurgitation was not well visualized. Pericardium: There is no pericardial effusion noted. Aorta: The aortic root is normal. CONCLUSIONS: 1. Left ventricular systolic function is normal with a 65-70% estimated ejection fraction. 2. Poorly visualized anatomical structures due to suboptimal image quality. QUANTITATIVE DATA SUMMARY: LV SYSTOLIC FUNCTION BY 2D PLANIMETRY (MOD): Normal Ranges: EF-A4C View: 66.3 % (>=55%) EF-A2C View: 62.2 % EF-Biplane: 63.3 % LV DIASTOLIC FUNCTION: Normal Ranges: MV Peak A: 0.83 m/s (0.42-0.7 m/s) MV e' 1.22 m/s (>8.0) MV lateral e' 0.11 m/s MV medial e' 0.09 m/s MV DT: 187 msec (150-240 msec) [id number] Rivka Elkins MD Electronically signed on 11/27/2022 at 4:47:40 PM Final Normal [facility] .Auto Diffon 10-27-2022 Basophil, Absolute 0.1 10 3/mcL Normal 0.0-0.3 [facility] ([place]) Comment on above: Performed By: #### C BC, JUANCARLOS, FT4, ANEU, CMP, ADIFF, LD, GFR, TSH, FT3 ####[facility] [place] [address] Basophils/100 WBC (Bld) 1.1 % Normal 0.0-2.5 [facility] ([place]) Comment on above: Performed By: #### C BC, JUANCARLOS, FT4, ANEU, CMP, ADIFF, LD, GFR, TSH, FT3 ####[address] [address] Eosinophil, Absolute 0.9 10 3/mcL High 0.0-0.7 [facility] ([place]) Comment on above: Performed By: #### C BC, JUANCARLOS, FT4, ANEU, CMP, ADIFF, LD, GFR, TSH, FT3 ####[address] [address] Eosinophils/100 WBC (Bld) 12.2 % High 0.0-6.0 [facility] ([place]) Comment on above: Performed By: #### C BC, JUANCARLOS, FT4, ANEU, CMP, ADIFF, LD, GFR, TSH, FT3 ####[address] [address] Lymphocyte, Absolute 1.1 10 3/mcL Normal 0.9-4.3 [facility] ([place]) Comment on above: Performed By: #### C BC, JUANCARLOS, FT4, ANEU, CMP, ADIFF, LD, GFR, TSH, FT3 ####[address] [address] Lymphocytes/100 WBC (Bld) 15.2 % Low 20.0-40.0 [facility] ([place]) Comment on above: Performed By: #### C BC, JUANCARLOS, FT4, ANEU, CMP, ADIFF, LD, GFR, TSH, FT3 ####[address] [address] Monocyte, Absolute 0.7 10 3/mcL Normal 0.1-1.4 [facility] ([place]) Comment on above: Performed By: #### C BC, JUANCARLOS, FT4, ANEU, CMP, ADIFF, LD, GFR, TSH, FT3 ####[address] [address] Monocytes/100 WBC (Bld) 9.6 % Normal 2.0-13.0 [facility] ([place]) Comment on above: Performed By: #### C BC, JUANCARLOS, FT4, ANEU, CMP, ADIFF, LD, GFR, TSH, FT3 ####[address] [address] Neutrophils/100 WBC (Bld) 61.9 % Normal 50.0-75.0 [facility] ([place]) Comment on above: Performed By: #### C BC, JUANCARLOS, FT4, ANEU, CMP, ADIFF, LD, GFR, TSH, FT3 ####[address] [address] .GFRon 10-27-2022 GFR >60 Normal [facility] ([place]) Comment on above: Result Comment: GFR Population mean for , Non- Americans Ages 20-29 = 116 mL/min/1.73 sq.m. Ages 30-39 = 107 mL/min/1.73 sq.m. Ages 40-49 = 99 mL/min/1.73 sq.m. Ages 50-59 = 93 mL/min/1.73 sq.m. Ages 60-69 = 85 mL/min/1.73 sq.m. Ages 70+ = 75 mL/min/1.73 sq.m.Chronic Kidney Disease: Less than 60 mL/min/1.73 square metersEnd Stage Renal Disease: Less than 15 mL/min/1.73 square meters Performed By: #### C BC, JUANCARLOS, FT4, ANEU, CMP, ADIFF, LD, GFR, TSH, FT3 ####[address] [address] GFR Non- 54 ml/min/1.73sqm Normal [facility] ([place]) Comment on above: Result Comment: GFR Population mean for , Non- Americans Ages 20-29 = 116 mL/min/1.73 sq.m. Ages 30-39 = 107 mL/min/1.73 sq.m. Ages 40-49 = 99 mL/min/1.73 sq.m. Ages 50-59 = 93 mL/min/1.73 sq.m. Ages 60-69 = 85 mL/min/1.73 sq.m. Ages 70+ = 75 mL/min/1.73 sq.m.Chronic Kidney Disease: Less than 60 mL/min/1.73 square metersEnd Stage Renal Disease: Less than 15 mL/min/1.73 square meters Performed By: #### C BC, JUANCARLOS, FT4, ANEU, CMP, ADIFF, LD, GFR, TSH, FT3 ####[place] [address] .NEUABSon 10-27-2022 Neutrophil, Absolute 4.4 10 3/mcL Normal 2.3-8.1 [facility] ([place]) Comment on above: Performed By: #### C BC, JUANCARLOS, FT4, ANEU, CMP, ADIFF, LD, GFR, TSH, FT3 ####[place] [address] CBCon 10-27-2022 Erythrocyte distribution width (RBC) [Ratio] 17.2 % High 11.5-15.5 [facility] ([place]) Comment on above: Performed By: #### C BC, JUANCARLOS, FT4, ANEU, CMP, ADIFF, LD, GFR, TSH, FT3 ####[place] [address] Hematocrit (Bld) [Volume fraction] 37.8 % Low 40.0-52.0 [facility] ([place]) Comment on above: Performed By: #### C BC, JUANCARLOS, FT4, ANEU, CMP, ADIFF, LD, GFR, TSH, FT3 ####[place] [address] Hgb 12.0 G/dL Low 13.0-17.5 [facility] ([place]) Comment on above: Performed By: #### C BC, JUANCARLOS, FT4, ANEU, CMP, ADIFF, LD, GFR, TSH, FT3 ####[place] [address] MCH (RBC) [Entitic mass] 27.4 pg Normal 27.0-33.0 [facility] ([place]) Comment on above: Performed By: #### C BC, JUANCARLOS, FT4, ANEU, CMP, ADIFF, LD, GFR, TSH, FT3 ####[place] [address] MCHC 31.8 G/dL Low 32.0-36.0 [facility] ([place]) Comment on above: Performed By: #### C BC, JUANCARLOS, FT4, ANEU, CMP, ADIFF, LD, GFR, TSH, FT3 ####[place] [address] MCV (RBC) [Entitic vol] 86.1 fL Normal 81.0-100.0 [facility] ([place] Comment on above: Performed By: #### C BC, JUANCARLOS, FT4, ANEU, CMP, ADIFF, LD, GFR, TSH, FT3 ####[place] [address] Platelet 239 10 3/mcL Normal 150-450 [facility] ([place]) Comment on above: Performed By: #### C BC, JUANCARLOS, FT4, ANEU, CMP, ADIFF, LD, GFR, TSH, FT3 ####[place] [address] Platelet mean volume (Bld) [Entitic vol] 7.8 fL Normal 6.4-10.5 [facility] ([place] Comment on above: Performed By: #### C BC, JUANCARLOS, FT4, ANEU, CMP, ADIFF, LD, GFR, TSH, FT3 ####[place] [address] RBC 4.39 10 6/mcL Low 4.50-6.00 [facility] ([place] Comment on above: Performed By: #### C BC, JUANCARLOS, FT4, ANEU, CMP, ADIFF, LD, GFR, TSH, FT3 ####[place] [address] WBC 7.1 10 3/mcL Normal 4.5-10.8 [facility] ([place] Comment on above: Performed By: #### C BC, JUANCARLOS, FT4, ANEU, CMP, ADIFF, LD, GFR, TSH, FT3 ####[place] [address] CMPon 10-27-2022 Albumin Level 3.3 G/dL Normal 3.2-4.8 [facility] ([place]) Comment on above: Performed By: #### C BC, JUANCARLOS, FT4, ANEU, CMP, ADIFF, LD, GFR, TSH, FT3 ####[address] [address] Albumin/Globulin [Mass ratio] 1.0 {ratio} Normal 0.9-1.6 [facility] ([place]) Comment on above: Performed By: #### C BC, JUANCARLOS, FT4, ANEU, CMP, ADIFF, LD, GFR, TSH, FT3 ####[address] [address] ALP [Catalytic activity/Vol] 98 U/L Normal 38-126 [facility] ([place]) Comment on above: Performed By: #### C BC, JUANCARLOS, FT4, ANEU, CMP, ADIFF, LD, GFR, TSH, FT3 ####[address] [address] ALT [Catalytic activity/Vol] 12 U/L Normal 12-55 [facility] ([place]) Comment on above: Performed By: #### C BC, JUANCARLOS, FT4, ANEU, CMP, ADIFF, LD, GFR, TSH, FT3 ####[address] [address] AST [Catalytic activity/Vol] 14 U/L Normal 8-34 [facility] ([place] Comment on above: Performed By: #### C BC, JUANCARLOS, FT4, ANEU, CMP, ADIFF, LD, GFR, TSH, FT3 ####[place] [id number] Bili Total 0.30 mg/dL Normal 0.20-1.20 [facility] ([place]) Comment on above: Result Comment: Use of this assay is not recommended for patients undergoing treatment with eltrombopag due to the potential for falsely elevated results. Performed By: #### C BC, JUANCARLOS, FT4, ANEU, CMP, ADIFF, LD, GFR, TSH, FT3 ####[place] [address] BUN/Creatinine Ratio 13.2 ratio Normal 10.0-22.0 [facility] ([place]) Comment on above: Performed By: #### C BC, JUANCARLOS, FT4, ANEU, CMP, ADIFF, LD, GFR, TSH, FT3 ####[address] [address] Calcium [Mass/Vol] 8.8 mg/dL Normal 8.7-10.4 [facility] ([place]) Comment on above: Performed By: #### C BC, JUANCARLOS, FT4, ANEU, CMP, ADIFF, LD, GFR, TSH, FT3 ####[address] [address] Chloride [Moles/Vol] 108 mmol/L Normal 98-110 [facility] ([place]) Comment on above: Performed By: #### C BC, JUANCARLOS, FT4, ANEU, CMP, ADIFF, LD, GFR, TSH, FT3 ####[place] [id number] CO2 [Moles/Vol] 31 mmol/L Normal 22-32 [facility] ([place]) Comment on above: Performed By: #### C BC, JUANCARLOS, FT4, ANEU, CMP, ADIFF, LD, GFR, TSH, FT3 ####[place] [address] Creatinine [Mass/Vol] 1.44 mg/dL High 0.60-1.40 [facility] ([place]) Comment on above: Performed By: #### C BC, JUANCARLOS, FT4, ANEU, CMP, ADIFF, LD, GFR, TSH, FT3 ####[place] [address] Electrolyte Balance 6.0 mEq/L Normal 4.0-15.0 [facility] ([place]) Comment on above: Performed By: #### C BC, JUANCARLOS, FT4, ANEU, CMP, ADIFF, LD, GFR, TSH, FT3 ####[place] [address] Globulin 3.4 G/dL Normal 1.5-3.8 [facility] ([place] Comment on above: Performed By: #### C BC, JUANCARLOS, FT4, ANEU, CMP, ADIFF, LD, GFR, TSH, FT3 ####[place] [address] Glucose [Mass/Vol] 136 mg/dL High 70-110 [facility] ([place] Comment on above: Performed By: #### C BC, JUANCARLOS, FT4, ANEU, CMP, ADIFF, LD, GFR, TSH, FT3 ####[place] [address] Potassium [Moles/Vol] 4.4 mmol/L Normal 3.5-5.0 [facility] ([place]) Comment on above: Performed By: #### C BC, JUANCARLOS, FT4, ANEU, CMP, ADIFF, LD, GFR, TSH, FT3 ####[address] [address] Sodium [Moles/Vol] 145 mmol/L Normal 136-145 [facility] ([place]) Comment on above: Performed By: #### C BC, JUANCARLOS, FT4, ANEU, CMP, ADIFF, LD, GFR, TSH, FT3 ####[place] [address] Total Protein 6.7 G/dL Normal 5.7-8.2 [facility] ([place]) Comment on above: Result Comment: No te - New Reference Range in effect 19 Performed By: #### C BC, JUANCARLOS, FT4, ANEU, CMP, ADIFF, LD, GFR, TSH, FT3 ####[place] [address] Urea nitrogen [Mass/Vol] 19.0 mg/dL Normal 8.0-22.0 [facility] ([place]) Comment on above: Performed By: #### C BC, JUANCARLOS, FT4, ANEU, CMP, ADIFF, LD, GFR, TSH, FT3 ####[address] [address] CORTon 10-27-2022 Cortisol Level 17.6 mcg/dL Normal [facility] ([place]) Comment on above: Result Comment: Juancarlos isol AM Reference Range 6.5-26.0 mcg/dLCortisol PM Reference Range 3.5-15.0 mcg/dL Performed By: #### C BC, JUANCARLOS, FT4, ANEU, CMP, ADIFF, LD, GFR, TSH, FT3 ####[place] [id number] FT3on 10-27-2022 Free T3 [Mass/Vol] 2.77 pg/mL Normal 2.30-4.20 [facility] ([place]) Comment on above: Performed By: #### C BC, JUANCARLOS, FT4, ANEU, CMP, ADIFF, LD, GFR, TSH, FT3 ####[place] [address] FT4on 10-27-2022 Free T4 [Mass/Vol] 0.96 ng/dL Normal 0.89-1.76 [facility] ([place]) Comment on above: Result Comment: No te - New Reference Range in effect 19 Performed By: #### C BC, JUANCARLOS, FT4, ANEU, CMP, ADIFF, LD, GFR, TSH, FT3 ####[place] [address] LABORATORYOrdered By: SYSTEM SYSTEM on 10-27-2022 Albumin BCP dye [Mass/Vol] 3.3 G/dL Invalid Interpretation Code 3.2 - 4.8 G/dL ADM SS Albumin/Globulin [Mass ratio] 1.0 {ratio} Invalid Interpretation Code 0.9 - 1.6 ratio AH ADM SS ALP [Catalytic activity/Vol] 98 U/L Invalid Interpretation Code 38 - 126 U/L ADM SS ALT No additional P-5'-P [Catalytic activity/Vol] 12 U/L Invalid Interpretation Code 12 - 55 U/L ADM SS AST [Catalytic activity/Vol] 14 U/L Invalid Interpretation Code 8 - 34 U/L ADM SS Basophils (Bld) [#/Vol] 0.1 103/mcL Invalid Interpretation Code 0.0 - 0.3 10^3/mcL Workflow SS Basophils/100 WBC (Bld) 1.1 % Invalid Interpretation Code 0.0 - 2.5 % Workflow SS Bilirubin [Mass/Vol] 0.30 mg/dL Invalid Interpretation Code 0.20 - 1.20 mg/dL ADM SS Comment on above: Interpretive Data: U se of this assay is not recommended for patients undergoing treatment with eltrombopag due to the potential for falsely elevated results. Calcium [Mass/Vol] 8.8 mg/dL Invalid Interpretation Code 8.7 - 10.4 mg/dL AH ADM SS Chloride [Moles/Vol] 108 mmol/L Invalid Interpretation Code 98 - 110 mEq/L AH ADM SS CO2 [Moles/Vol] 31 mmol/L Invalid Interpretation Code 22 - 32 mEq/L AH ADM SS Cortisol [Mass/Vol] 17.6 ug/dL Invalid Interpretation Code AH ADM SS Comment on above: Interpretive Data: C ortisol AM Reference Range 6.5-26.0 mcg/dL Cortisol PM Reference Range 3.5-15.0 mcg/dL Creatinine [Mass/Vol] 1.44 mg/dL Invalid Interpretation Code 0.60 - 1.40 mg/dL AH ADM SS Electrolyte Balance 6.0 mEq/L Invalid Interpretation Code 4.0 - 15.0 mEq/L AH ADM SS Eosinophils (Bld) [#/Vol] 0.9 103/mcL Invalid Interpretation Code 0.0 - 0.7 10^3/mcL AH Workflow SS Eosinophils/100 WBC (Bld) 12.2 % Invalid Interpretation Code 0.0 - 6.0 % AH Workflow SS Erythrocyte distribution width (RBC) [Ratio] 17.2 % Invalid Interpretation Code 11.5 - 15.5 % AH Workflow SS Free T3 [Mass/Vol] 2.77 pg/mL Invalid Interpretation Code 2.30 - 4.20 pg/mL AH ADM SS Free T4 [Mass/Vol] 0.96 ng/dL Invalid Interpretation Code 0.89 - 1.76 ng/dL AH ADM SS Comment on above: Interpretive Data: * *Note - New Reference Range in effect 19 GFR/1.73 sq M.predicted among blacks MDRD (S/P/Bld) [Vol rate/Area] ml/min/1.73sqm Invalid Interpretation Code AH ADM SS Comment on above: Interpretive Data: GFR Population mean for , Non- Americans Ages 20-29 = 116 mL/min/1.73 sq.m. Ages 30-39 = 107 mL/min/1.73 sq.m. Ages 40-49 = 99 mL/min/1.73 sq.m. Ages 50-59 = 93 mL/min/1.73 sq.m. Ages 60-69 = 85 mL/min/1.73 sq.m. Ages 70+ = 75 mL/min/1.73 sq.m. Chronic Kidney Disease: Less than 60 mL/min/1.73 square meters End Stage Renal Disease: Less than 15 mL/min/1.73 square meters GFR/1.73 sq M.predicted among non-blacks MDRD (S/P/Bld) [Vol rate/Area] 54 ml/min/1.73sqm Invalid Interpretation Code ADM SS Comment on above: Interpretive Data: GFR Population mean for , Non- Americans Ages 20-29 = 116 mL/min/1.73 sq.m. Ages 30-39 = 107 mL/min/1.73 sq.m. Ages 40-49 = 99 mL/min/1.73 sq.m. Ages 50-59 = 93 mL/min/1.73 sq.m. Ages 60-69 = 85 mL/min/1.73 sq.m. Ages 70+ = 75 mL/min/1.73 sq.m. Chronic Kidney Disease: Less than 60 mL/min/1.73 square meters End Stage Renal Disease: Less than 15 mL/min/1.73 square meters Globulin 3.4 G/dL Invalid Interpretation Code 1.5 - 3.8 G/dL ADM SS Glucose [Mass/Vol] 136 mg/dL Invalid Interpretation Code 70 - 110 mg/dL ADM SS Hematocrit (Bld) [Volume fraction] 37.8 % Invalid Interpretation Code 40.0 - 52.0 % Workflow SS Hemoglobin (Bld) [Mass/Vol] 12.0 G/dL Invalid Interpretation Code 13.0 - 17.5 G/dL AH Workflow SS LDH Lactate to pyruvate reaction [Catalytic activity/Vol] 215 1 Invalid Interpretation Code 120 - 246 U/L ADM SS Lymphocytes (Bld) [#/Vol] 1.1 103/mcL Invalid Interpretation Code 0.9 - 4.3 10^3/mcL Workflow SS Lymphocytes/100 WBC (Bld) 15.2 % Invalid Interpretation Code 20.0 - 40.0 % Workflow SS MCH (RBC) [Entitic mass] 27.4 pg Invalid Interpretation Code 27.0 - 33.0 pg AH Workflow SS MCHC 31.8 G/dL Invalid Interpretation Code 32.0 - 36.0 G/dL Workflow SS MCV (RBC) [Entitic vol] 86.1 fL Invalid Interpretation Code 81.0 - 100.0 fL Workflow SS Monocytes (Bld) [#/Vol] 0.7 103/mcL Invalid Interpretation Code 0.1 - 1.4 10^3/mcL AH Workflow SS Monocytes/100 WBC (Bld) 9.6 % Invalid Interpretation Code 2.0 - 13.0 % AH Workflow SS Neutrophils (Bld) [#/Vol] 4.4 103/mcL Invalid Interpretation Code 2.3 - 8.1 10^3/mcL AH Workflow SS Neutrophils/100 WBC (Bld) 61.9 % Invalid Interpretation Code 50.0 - 75.0 % AH Workflow SS Platelet mean volume (Bld) [Entitic vol] 7.8 fL Invalid Interpretation Code 6.4 - 10.5 fL AH Workflow SS Platelets (Bld) [#/Vol] 239 103/mcL Invalid Interpretation Code 150 - 450 10^3/mcL AH Workflow SS Potassium [Moles/Vol] 4.4 mmol/L Invalid Interpretation Code 3.5 - 5.0 mEq/L AH ADM SS Protein [Mass/Vol] 6.7 G/dL Invalid Interpretation Code 5.7 - 8.2 G/dL AH ADM SS Comment on above: Interpretive Data: * *Note - New Reference Range in effect 19 RBC (Bld) [#/Vol] 4.39 106/mcL Invalid Interpretation Code 4.50 - 6.00 10^6/mcL AH Workflow SS Sodium [Moles/Vol] 145 mmol/L Invalid Interpretation Code 136 - 145 mEq/L AH ADM SS TSH Qn 5.430 mIU/mL Invalid Interpretation Code 0.550 - 4.780 mIU/mL AH ADM SS Comment on above: Interpretive Data: * *Note - New Reference Range in effect 19 Urea nitrogen [Mass/Vol] 19.0 mg/dL Invalid Interpretation Code 8.0 - 22.0 mg/dL AH ADM SS Urea nitrogen/Creatinine [Mass ratio] 13.2 ratio Invalid Interpretation Code 10.0 - 22.0 ratio AH ADM SS WBC (Bld) [#/Vol] 7.1 103/mcL Invalid Interpretation Code 4.5 - 10.8 10^3/mcL AH Workflow SS LABORATORYOrdered By: Anamaria Pandey on 10-27-2022 INR Coag (PPP) [Relative time] 2.3 {INR} Invalid Interpretation Code AO [facility] SS Comment on above: Interpretive Data: Cindy briggs [employer] [place] [employer] (CHEST, 1992, 102:312S-25S) recommended therapeutic range for oral anticoagulant therapy is: LOW RISK: Prophylaxis of venous thrombosis INR: 2.0-3.0 Treatment of pulmonary embolism 2.0-3.0 Prevention of systemic embolism 2.0-3.0 HIGH RISK: Mechanical prosthetic valves 2.5-3.5 PT Coag (PPP) [Time] 26.4 s High 9.0 - 1 4.2 seconds AO [facility] SS LDHon 10-27-2022 LDH 215 U/L Normal 120-246 [facility] ([place]) Comment on above: Performed By: #### C BC, JUANCARLOS, FT4, ANEU, CMP, ADIFF, LD, GFR, TSH, FT3 ####[address] [address] PROon 10-27-2022 PT Coag (PPP) [Time] 26.4 s High 9.0-14.2 [facility] ([place]) Comment on above: Performed By: #### P RO ####[facility] [place], [place] [address] PT International Ratio 2.3 Normal [facility] ([place]) Comment on above: Result Comment: The [place] (CHEST, 1992, 102:312S-25S)recommended therapeutic range for oral anticoagulant therapy is:LOW RISK: Prophylaxis of venous thrombosis INR: 2.0-3.0 Treatment of pulmonary embolism 2.0-3.0 Prevention of systemic embolism 2.0-3.0HIGH RISK: Mechanical prosthetic valves 2.5-3.5 Performed By: #### P RO ####[place] [address] [place], [place] [address] TSHon 10-27-2022 TSH 5.430 mIU/mL High 0.550-4.780 [facility] ([place]) Comment on above: Result Comment: No te - New Reference Range in effect 19 Performed By: #### C BC, JUANCARLOS, FT4, ANEU, CMP, ADIFF, LD, GFR, TSH, FT3 ####[address] [address] LABORATORYOrdered By: Anamaria Pandey on 10-21-2022 INR Coag (PPP) [Relative time] 2.6 {INR} Invalid Interpretation Code AO [facility] SS Comment on above: Interpretive Data: T he [place] [employer] (CHEST, 1991, 102:312S-25S) recommended therapeutic range for oral anticoagulant therapy is: LOW RISK: Prophylaxis of venous thrombosis INR: 2.0-3.0 Treatment of pulmonary embolism 2.0-3.0 Prevention of systemic embolism 2.0-3.0 HIGH RISK: Mechanical prosthetic valves 2.5-3.5 PT Coag (PPP) [Time] 29.8 s High 9.0 - 1 4.2 seconds AO Tiff SS PROon 10-21-2022 PT Coag (PPP) [Time] 29.8 s High 9.0-14.2 [facility] ([place]) Comment on above: Performed By: #### P RO ####[place] [id number] [address] [place] [id number] PT International Ratio 2.6 Normal [facility] ([place]) Comment on above: Result Comment: The [place] [employer] (CHEST, 1991, 102:312S-25S)recommended therapeutic range for oral anticoagulant therapy is:LOW RISK: Prophylaxis of venous thrombosis INR: 2.0-3.0 Treatment of pulmonary embolism 2.0-3.0 Prevention of systemic embolism 2.0-3.0HIGH RISK: Mechanical prosthetic valves 2.5-3.5 Performed By: #### P RO ####[address] [address] Office Visit (Cardiac Surger y)on 10-10-2022 Follow-up visit Provider Impressions He underwent removal of right atrial mass and pulmonary embolectomy on 08/18/2022. He has made an excellent recovery overall. He will be starting cardiac rehab soon. He continues on anticoagulation. I have reassured him and discharged him from the surgical clinic, but happy to see him at any point if required. Chief Complaint Patient is here for a P/OP visit following removal of right atrial mass and pulmonary embolectomy done on 08/18/2022. Aissatou BECKER, RN-BC. History of Present IllnessThis was a virtual appointment over telephone He underwent removal of right atrial mass and pulmonary embolectomy on 08/18/2022. He has made an excellent recovery. The mass was reported as showing no evidence of malignancy. He is symptomatically much minimal shortness of breath. There was no complaints related to the wound. He has been referred for cardiac rehab and under follow-up with Dr Elkins. *Active Problems Problems H/O renal cell carcinoma (V10.52) (Z85.528) metastatic ... s/p left nephrectomy August 2020 ? s/p radiation therapy ? 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 Real Wilburn]: Normal coronaries in a right co-dominant system. Conclusions: nonobstructive CAD. History of Heart surgery [08/18/2022, Dr. Georgia Brady]: Removal of right atrial mass and pulmonary thromboembolectomy History of Nephrectomy August 2020 - left History of Thrombectomy [08/18/2022, Dr. 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 oxyCODONE-Acetaminophen 5-325 MG Oral Tablet Stool Softener TABS Warfarin Sodium 5 MG Oral Tablet Results/Data CXR shows improved appearances compared to preop. Letter Closing If you have any questions please do not hesitate to contact my office. Sincerely, Signatures Electronically signed by : Georgia Brady MD; Oct 10 2022 6:15PM EST (Author) Normal [employer] TH CHEST 2 VIEW PA AND LATon 10-10-2022 TH CHEST 2 VIEW PA AND LAT Normal [facility] LABORATORYOrdered By: Ta Starkey on 10-06-2022 INR Coag (PPP) [Relative time] 2.7 {INR} Invalid Interpretation Code AO [facility] SS Comment on above: Interpretive Data: Cindy briggs [employer] [employer] (CHEST, 1992, 102:312S-25S) recommended therapeutic range for oral anticoagulant therapy is: LOW RISK: Prophylaxis of venous thrombosis INR: 2.0-3.0 Treatment of pulmonary embolism 2.0-3.0 Prevention of systemic embolism 2.0-3.0 HIGH RISK: Mechanical prosthetic valves 2.5-3.5 PT Coag (PPP) [Time] 31.7 s High 9.0 - 1 4.2 seconds AO [facility] SS LABORATORYOrdered By: SYSTEM SYSTEM on 09-29-2022 Albumin BCP dye [Mass/Vol] 3.3 G/dL Invalid Interpretation Code 3.2 - 4.8 G/dL ADM SS Albumin/Globulin [Mass ratio] 0.9 {ratio} Invalid Interpretation Code 0.9 - 1.6 ratio AH ADM SS ALP [Catalytic activity/Vol] 97 U/L Invalid Interpretation Code 38 - 126 U/L ADM SS ALT No additional P-5'-P [Catalytic activity/Vol] 12 U/L Invalid Interpretation Code 12 - 55 U/L ADM SS AST [Catalytic activity/Vol] 13 U/L Invalid Interpretation Code 8 - 34 U/L AH ADM SS Basophils (Bld) [#/Vol] 0.1 103/mcL Invalid Interpretation Code 0.0 - 0.3 10^3/mcL Workflow SS Basophils/100 WBC (Bld) 0.9 % Invalid Interpretation Code 0.0 - 2.5 % AH Workflow SS Bilirubin [Mass/Vol] 0.30 mg/dL Invalid Interpretation Code 0.20 - 1.20 mg/dL ADM SS Comment on above: Interpretive Data: U se of this assay is not recommended for patients undergoing treatment with eltrombopag due to the potential for falsely elevated results. Calcium [Mass/Vol] 8.4 mg/dL Invalid Interpretation Code 8.7 - 10.4 mg/dL ADM SS Chloride [Moles/Vol] 104 mmol/L Invalid Interpretation Code 98 - 110 mEq/L AH ADM SS CO2 [Moles/Vol] 29 mmol/L Invalid Interpretation Code 22 - 32 mEq/L ADM SS Cortisol [Mass/Vol] 18.3 ug/dL Invalid Interpretation Code ADM SS Comment on above: Interpretive Data: C ortisol AM Reference Range 6.5-26.0 mcg/dL Cortisol PM Reference Range 3.5-15.0 mcg/dL Creatinine [Mass/Vol] 1.46 mg/dL Invalid Interpretation Code 0.60 - 1.40 mg/dL ADM SS Electrolyte Balance 9.0 mEq/L Invalid Interpretation Code 4.0 - 15.0 mEq/L ADM SS Eosinophils (Bld) [#/Vol] 0.5 103/mcL Invalid Interpretation Code 0.0 - 0.7 10^3/mcL Workflow SS Eosinophils/100 WBC (Bld) 6.6 % Invalid Interpretation Code 0.0 - 6.0 % Workflow SS Erythrocyte distribution width (RBC) [Ratio] 16.8 % Invalid Interpretation Code 11.5 - 15.5 % Workflow SS Free T3 [Mass/Vol] 2.95 pg/mL Invalid Interpretation Code 2.30 - 4.20 pg/mL ADM SS Free T4 [Mass/Vol] 1.00 ng/dL Invalid Interpretation Code 0.89 - 1.76 ng/dL ADM SS Comment on above: Interpretive Data: * *Note - New Reference Range in effect 19 GFR/1.73 sq M.predicted among blacks MDRD (S/P/Bld) [Vol rate/Area] ml/min/1.73sqm Invalid Interpretation Code [facility] Comment on above: Interpretive Data: GFR Population mean for , Non- Americans Ages 20-29 = 116 mL/min/1.73 sq.m. Ages 30-39 = 107 mL/min/1.73 sq.m. Ages 40-49 = 99 mL/min/1.73 sq.m. Ages 50-59 = 93 mL/min/1.73 sq.m. Ages 60-69 = 85 mL/min/1.73 sq.m. Ages 70+ = 75 mL/min/1.73 sq.m. Chronic Kidney Disease: Less than 60 mL/min/1.73 square meters End Stage Renal Disease: Less than 15 mL/min/1.73 square meters GFR/1.73 sq M.predicted among non-blacks MDRD (S/P/Bld) [Vol rate/Area] 53 ml/min/1.73sqm Invalid Interpretation Code [facility] Comment on above: Interpretive Data: GFR Population mean for , Non- Americans Ages 20-29 = 116 mL/min/1.73 sq.m. Ages 30-39 = 107 mL/min/1.73 sq.m. Ages 40-49 = 99 mL/min/1.73 sq.m. Ages 50-59 = 93 mL/min/1.73 sq.m. Ages 60-69 = 85 mL/min/1.73 sq.m. Ages 70+ = 75 mL/min/1.73 sq.m. Chronic Kidney Disease: Less than 60 mL/min/1.73 square meters End Stage Renal Disease: Less than 15 mL/min/1.73 square meters Globulin 3.5 G/dL Invalid Interpretation Code 1.5 - 3.8 G/dL ADM SS Glucose [Mass/Vol] 157 mg/dL Invalid Interpretation Code 70 - 110 mg/dL ADM SS Hematocrit (Bld) [Volume fraction] 36.3 % Invalid Interpretation Code 40.0 - 52.0 % Workflow SS Hemoglobin (Bld) [Mass/Vol] 11.5 G/dL Invalid Interpretation Code 13.0 - 17.5 G/dL Workflow SS LDH Lactate to pyruvate reaction [Catalytic activity/Vol] 208 1 Invalid Interpretation Code 120 - 246 U/L ADM SS Lymphocytes (Bld) [#/Vol] 1.3 103/mcL Invalid Interpretation Code 0.9 - 4.3 10^3/mcL AH Workflow SS Lymphocytes/100 WBC (Bld) 16.3 % Invalid Interpretation Code 20.0 - 40.0 % AH Workflow SS MCH (RBC) [Entitic mass] 28.5 pg Invalid Interpretation Code 27.0 - 33.0 pg AH Workflow SS MCHC 31.8 G/dL Invalid Interpretation Code 32.0 - 36.0 G/dL AH Workflow SS MCV (RBC) [Entitic vol] 89.8 fL Invalid Interpretation Code 81.0 - 100.0 fL AH Workflow SS Monocytes (Bld) [#/Vol] 0.6 103/mcL Invalid Interpretation Code 0.1 - 1.4 10^3/mcL AH Workflow SS Monocytes/100 WBC (Bld) 7.1 % Invalid Interpretation Code 2.0 - 13.0 % AH Workflow SS Neutrophils (Bld) [#/Vol] 5.7 103/mcL Invalid Interpretation Code 2.3 - 8.1 10^3/mcL AH Workflow SS Neutrophils/100 WBC (Bld) 69.1 % Invalid Interpretation Code 50.0 - 75.0 % AH Workflow SS Platelet mean volume (Bld) [Entitic vol] 7.4 fL Invalid Interpretation Code 6.4 - 10.5 fL AH Workflow SS Platelets (Bld) [#/Vol] 297 103/mcL Invalid Interpretation Code 150 - 450 10^3/mcL AH Workflow SS Potassium [Moles/Vol] 4.0 mmol/L Invalid Interpretation Code 3.5 - 5.0 mEq/L ADM SS Protein [Mass/Vol] 6.8 G/dL Invalid Interpretation Code 5.7 - 8.2 G/dL ADM SS Comment on above: Interpretive Data: * *Note - New Reference Range in effect 19 RBC (Bld) [#/Vol] 4.05 106/mcL Invalid Interpretation Code 4.50 - 6.00 10^6/mcL AH Workflow SS Sodium [Moles/Vol] 142 mmol/L Invalid Interpretation Code 136 - 145 mEq/L ADM SS TSH Qn 5.498 mIU/mL Invalid Interpretation Code 0.550 - 4.780 mIU/mL ADM SS Comment on above: Interpretive Data: * *Note - New Reference Range in effect 19 Urea nitrogen [Mass/Vol] 18.0 mg/dL Invalid Interpretation Code 8.0 - 22.0 mg/dL AH ADM SS Urea nitrogen/Creatinine [Mass ratio] 12.3 ratio Invalid Interpretation Code 10.0 - 22.0 ratio AH ADM SS WBC (Bld) [#/Vol] 8.2 103/mcL Invalid Interpretation Code 4.5 - 10.8 10^3/mcL AH Workflow SS Clinic Note - Heme Onc-New V isiton 09-22-2022 Clinic Note - Heme Onc-New Visit Normal [facility] Clinic Note - Intakeon 09-22 Clinic Note - Intake Normal [facility] Oncology Nurse Navigator-sec ond opinionon 09-19-2022 Oncology Nurse Navigator-second opinion Normal [facility] Electrocardiogram 12 Leadon 09-05-2022 Electrocardiogram 12 Lead Normal [facility] No Panel Informationon 09-05 [email or web address]?[email or web address] [email or web address]?[email or web address] 144&Date=05-09-2022&Chelsey e=[id number]&Elsa tType=ECG&Site=1&Output Type=PDF&Ext=PDF [facility] Work Phone: Normal sinus rhythm [facility] Work Phone: Abnormal [facility] Work Phone: [phone] [facility] Work Phone: [phone] [facility] Work Phone: 183 1 [facility] Work Phone: 124 1 [facility] Work Phone: 220 1 [facility] Work Phone: 11 1 [facility] Work Phone: 66 1 [facility] Work Phone: 100 1 [facility] Work Phone: 61 1 [facility] Work Phone: [phone] [facility] Work Phone: 114 1 [facility] Work Phone: 192 1 [facility] Work Phone: 63 1 [facility] Work Phone: Office Visit (Cardiology)on 09-05-2022 Follow-up visit Diagnoses/Problems Assessed H/O renal cell carcinoma (V10.52) (Z85.528) metastatic ... s/p left nephrectomy August 2020 ? s/p radiation therapy ? 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) found on BONNIE 07/2022 s/p resection Morbid obesity (278.01) (E66.01) Atrial flutter (427.32) (I48.92) 07/2022 Diogo with PE, again post op 07/2022 [facility] after resection 3 RA masses SOB (shortness of breath) on exertion (786.05) (R06.02) Hospital discharge follow-up (V67.59) (Z09) Orders Atrial flutter, Pulmonary embolism, Right atrial mass, SOB (shortness of breath) on exertion Echocardiogram; Status:Hold For - Scheduling,Exact Date; Requested for:Approx [id number]; Cardiac Rehab Referral Evaluation and Treatment Evaluate AND Treat Status: Hold For - Scheduling Requested for: [id number] Agreement : I agree to have my patient participate in the phase III outpatient cardiac rehabilitation program after completion of the phase II program. Consent : I consent to have my patient participate in the cardiac rehabilitation program. I will continue regular medical care of my patient throughout his/her participation in the program. Individualized Treatment Plan and Exercise Prescription : Defer the patients ITP and exercise prescription to be developed by the staff for your review and approval I authorize the Cardiac Rehabilitation Department to : Current lab values are helpful in order to assess the lipid status and individualize diet therapy. A venous blood sample will be drawn and lipids analyzed at the laboratory I authorize the Cardiac Rehabilitation Department to : Schedule a symptom limited graded exercise test with 12 lead ECG prior to starting cardiac rehabilitation and at discharge, if needed. IO EKG Electrocardiogram- 12 Lead; Status:Active - Perform Order; Requested for:[id number]; IO Event Monitor 30 days; Status:Active - Perform Order; Requested for:[id number]; Obstructive sleep apnea, adult Adult Sleep Medicine Referral Evaluation and Treatment Evaluate AND Treat Status: Hold For - Scheduling Requested for: [id number] SocHx: Current every day smoker Tobacco Use Screening; Status:Complete; Done: [id number] Patient Instructions 1. Right atrial mass. 3 masses resected July 2022. Etiology unclear. Final pathology is not viewable to me. This may be related to his renal cell carcinoma status post nephrectomy in 2020 or may be part of the clot process that led to pulmonary embolism. Await pathology. Repeat echo 2 months. 2. Atrial flutter. This happened when he presented with his pulmonary embolism at [facility]. It happened postoperatively after his open heart surgery. Continue amiodarone continue Coumadin. After total of 3 months transition from Coumadin to Eliquis. We need to watch renal function as his creatinine was up to 1.9. In 2 months I will have him wear a 30-day event recorder to see theThe A-flutter happened before surgery. It may recur. 3. CAD. Mild nonobstructive disease. 4. Hypertension controlled 5. Obstructive sleep apnea. Following up in the sleep clinic will be essential to optimize his management. This may help reduce the burden of atrial flutter. 6. Tobacco abuse. He was smoking up until the point he was in the hospital. He is smoke-free at this time. 7. Morbid obesity. This remains a compelling issue. This is contributing to his sleep apnea may be contributing to his atrial flutter. Weight loss is essential. I will refer him to cardiac rehab which will be done in [place] near his home. Echo 2 months 30-day event recorder 2 months return to see me 3-1/2 months. All records from the hospitalizations were reviewed. I personally reviewed multiple echoes and catheterizations. Strawberry of atrial flutter. He has obstructive sleep apnea. History of Present Illness I am seeing Lyndsay in hospital follow-up. Admitted to [facility] with a pulmonary embolism. He underwent Ecos. That he was found to be in atrial flutter. He had a BONNIE in preparation for cardioversion. On BONNIE 3 right atrial masses identified. Transferred to [facility]. Ultimately underwent open heart surgery with resection of the 3 masses. I still not able to see the pathology. Unclear if this was due to his renal cell carcinoma from 2020 or if it was thrombus. Postoperatively he had episodes of atrial flutter. Placed on amiodarone and warfarin. Unclear why Eliquis was not used. Catheterization revealed insignificant plaquing of his coronary arteries. LV function on several echo is normal. LV function on the intraoperative BONNIE was moderately impaired. Since discharge feeling better and getting stronger. He stopped smoking. Breathing is easier. He was diagnosed with sleep apnea but was unable to tolerate CPAP in the hospital. No palpitations or val (more content not included)... Normal [facility] Tobacco Screening.on 023 Fall risk assessment a) No falls within the last year [facility] Work Phone: Tobacco use status CPHS b) No [facility] Work Phone: CBCon 08-29-2022 Erythrocyte distribution width (RBC) [Ratio] 15.0 % High 11.5 - 14.5 [facility] Comment on above: Performed By: #### C BC ####[id number] [place] [address] Hematocrit (Bld) [Volume fraction] 32.9 % Low 41.0 - 52.0 [facility] Comment on above: Performed By: #### C BC ####[id number] [place] [address] Hemoglobin (Bld) [Mass/Vol] 10.0 g/dL Low 13.5 - 17.5 [facility] Comment on above: Performed By: #### C BC ####[id number] [place] [address] MCHC (RBC) [Mass/Vol] 30.4 g/dL Low 32.0 - 36.0 [facility] Comment on above: Performed By: #### C BC ####[id number] [place] [address] MCV (RBC) [Entitic vol] 100 fL Normal 80 - 100 [facility] Comment on above: Performed By: #### C BC ####[id number] [place] [address] NUCLEATED RBC 0.0 /100 WBC Normal 0.0-0.0 [facility] Comment on above: Performed By: #### C BC ####[id number] [place] [address] Platelets (Bld) [#/Vol] 375 10*3/uL Normal 150 - 450 [facility] Comment on above: Performed By: #### C BC ####[id number] [place] [address] RBC 3.28 x10E12/L Low 4.50 - 5.90 [facility] Comment on above: Performed By: #### C BC ####[id number] [place] [address] WBC (Bld) [#/Vol] 10.0 10*3/uL Normal 4.4 - 11.3 [facility] Comment on above: Performed By: #### C BC ####[id number] [place] [address] Daily Progress Note-Cardiac Surgeryon 08-29-2022 Daily Progress Note-Cardiac Surgery Normal [facility] Daily Progress Note-Vascular Medicineon 08-29-2022 Daily Progress Note-Vascular Medicine Normal [facility] HEPARIN ASSAY,UFHon 08-30-19 23 HEPARIN ASSAY,UFH 0.5 IU/mL Normal [facility] [place] Comment on above: Result Comment: The therapeutic reference range for UFH may be either 0.3-0.6 IU/mL or 0.3-0.7 IU/mL based on the clinical setting for anticoagulant therapy and the associated nomogram used. For heparin dosing guidelines based on clinical scenario and Heparin Assay results, please refer to local Pharmacy and the [facility] Guidelines for Anticoagulation therapy available on the [facility] intranet at:[email or web address] citySqulaselect medical [email or web address]/[email or web address]_Guidelines_for_[email or web address].aspx Performed By: #### H JESSICA ####[id number] [place] [address] Heparin assay, UFHon 023 Heparin unfractionated Chromogenic method Qn (PPP) 0.5 {IU/mL} [facility] Work Phone: Comment on above: The therapeutic refe rence range for UFH may be either 0.3-0.6 IU/mL or 0.3-0.7 IU/mL based on the clinical setting for anticoagulant therapy and the associated nomogram used. For heparin dosing guidelines based on clinical scenario and Heparin Assay results, please refer to local Pharmacy and the [facility] Guidelines for Anticoagulation therapy available on the [facility] intranet at:[email or web address]/Pharmacy/Pages/[facility]_Guidelines_for_Anticoagu.aspx Laboratory - Coagulationon 0 08-29-2022 INR Coag (PPP) [Relative time] 2.9 {INR} above high threshold 0.9 - 1.1 [facility] Work Phone: PT Coag (PPP) [Time] 33.0 s above high threshold 9.8 - 12.8 [facility] Work Phone: Comment on above: Note new reference jose luis ch as of 08/02/2022 at 10:00am. Laboratory - Hematology and Cell countson 08-29-2022 Erythrocyte distribution width (RBC) [Ratio] 15.0 % above high threshold See Below [facility] Work Phone: Comment on above: Reference Range: 11. 5 - 14.5 Hematocrit (Bld) [Volume fraction] 32.9 % below low threshold See Below [facility] Work Phone: Comment on above: Reference Range: 41. 0 - 52.0 Hemoglobin (Bld) [Mass/Vol] 10.0 g/dL below low threshold See Below [facility] Work Phone: Comment on above: Reference Range: 13. 5 - 17.5 MCHC (RBC) [Mass/Vol] 30.4 g/dL below low threshold See Below [facility] Work Phone: Comment on above: Reference Range: 32. 0 - 36.0 MCV (RBC) [Entitic vol] 100 fL 80 - 100 [facility] Work Phone: Platelets (Bld) [#/Vol] 375 10*3/uL 150 - 450 [facility] Work Phone: RBC (Bld) [#/Vol] 3.28 {x10E12/L} below low threshold See Below [facility] Work Phone: Comment on above: Reference Range: 4.5 0 - 5.90 WBC (Bld) [#/Vol] 10.0 10*3/uL 4.4 - 11.3 [facility] Work Phone: MAGNESIUMon 08-29-2022 Magnesium [Mass/Vol] 2.11 mg/dL Normal 1.60 - 2.40 [facility] Comment on above: Performed By: #### M G ####[id number] [place] [address] Magnesium, Serumon 3 Magnesium [Mass/Vol] 2.11 mg/dL See Below [facility] Work Phone: Comment on above: Reference Range: 1.6 0 - 2.40 No Panel Informationon 08-29 0.0 {/100_WBC} 0.0-0.0 [facility] Work Phone: PT/INRon 08-29-2022 PT Coag (PPP) [Time] 33.0 s High 9.8 - 12.8 [facility] Comment on above: Result Comment: Note new reference range as of 08/02/2022 at 10:00am. Performed By: #### P TINR ####[id number] [place] [address] PT, INR 2.9 High 0.9 - 1.1 [facility] Comment on above: Performed By: #### P TINR ####[id number] [place] [address] RENAL FUNCTION PANELon 08-29 Albumin [Mass/Vol] 3.5 g/dL Normal 3.4 - 5.0 [facility] Comment on above: Performed By: #### R ENAL ####[id number] [place] [address] Anion gap [Moles/Vol] 14 mmol/L Normal 10 - 20 [facility] Comment on above: Performed By: #### R ENAL ####[id number] [place] [address] Calcium [Mass/Vol] 8.8 mg/dL Normal 8.6 - 10.6 [facility] Comment on above: Performed By: #### R ENAL ####[id number] [place] [address] Chloride [Moles/Vol] 106 mmol/L Normal 98 - 107 [facility] Comment on above: Performed By: #### R ENAL ####[id number] [place] [address] Creatinine [Mass/Vol] 1.49 mg/dL High 0.50 - 1.30 [facility] Comment on above: Performed By: #### R ENAL ####[id number] [place] [address] GFR/1.73 sq M.predicted among non-blacks MDRD (S/P/Bld) [Vol rate/Area] 59 mL/min/{1.73_m2} Abnormal >90 [facility] Comment on above: Result Comment: CALC ULATIONS OF ESTIMATED GFR ARE PERFORMED USING THE 2020 CKD-EPI STUDY REFIT EQUATION WITHOUT THE RACE VARIABLE FOR THE IDMS-TRACEABLE CREATININE METHODS.https://jasn.asnjournals.org/content//A SN.7832100222 Performed By: #### R ENAL ####[id number] [place] [address] Glucose [Mass/Vol] 96 mg/dL Normal 74 - 99 [facility] Comment on above: Performed By: #### R ENAL ####[id number] [place] [address] HCO3 (Bld) [Moles/Vol] 26 mmol/L Normal 21 - 32 [facility] Comment on above: Performed By: #### R ENAL ####[id number] [place] [address] Phosphate [Mass/Vol] 3.8 mg/dL Normal 2.5 - 4.9 [facility] Comment on above: Result Comment: The performance characteristics of phosphorus testing in heparinized plasma have been validated by the individual laboratory site where testing is performed. Testing on heparinized plasma is not approved by the FDA; however, such approval is not necessary. Performed By: #### R ENAL ####[id number] [place] [address] Potassium [Moles/Vol] 4.8 mmol/L Normal 3.5 - 5.3 [facility] Comment on above: Performed By: #### R ENAL ####[id number] [place] [address] Sodium [Moles/Vol] 141 mmol/L Normal 136 - 145 [facility] Comment on above: Performed By: #### R ENAL ####[id number] [place] [address] Urea nitrogen [Mass/Vol] 22 mg/dL Normal 6 - 23 [facility] Comment on above: Performed By: #### R ENAL ####[id number] [place] [address] Renal Function Panelon 08-29 Albumin BCP dye [Mass/Vol] 3.5 g/dL 3.4 - 5.0 [facility] Work Phone: Anion gap [Moles/Vol] 14 mmol/L 10 - 20 [facility] Work Phone: Calcium [Mass/Vol] 8.8 mg/dL 8.6 - 10.6 -[facility] Work Phone: Chloride [Moles/Vol] 106 mmol/L 98 - 107 -[facility] Work Phone: CO2 [Moles/Vol] 26 mmol/L 21 - 32 -[facility] Work Phone: Creatinine [Mass/Vol] 1.49 mg/dL above high threshold See Below [facility]: Comment on above: Reference Range: 0.5 0 - 1.30 Glucose [Mass/Vol] 96 mg/dL 74 - 99 -[facility] Work Phone: Phosphate [Mass/Vol] 3.8 mg/dL 2.5 - 4.9 -[facility] Work Phone: Comment on above: The performance chidi acteristics of phosphorus testing in heparinized plasma have been validated by the individual laboratory site where testing is performed. Testing on heparinized plasma is not approved by the FDA; however, such approval is not necessary. Potassium [Moles/Vol] 4.8 mmol/L 3.5 - 5.3 [facility] Work Phone: Sodium [Moles/Vol] 141 mmol/L 136 - 145 -[facility] Work Phone: Urea nitrogen [Mass/Vol] 22 mg/dL 6 - 23 [facility] Work Phone: Renal Function Panel 59 {mL/min/1.73m2} Abnormal >90 [facility] Work [facility]: Comment on above: CALCULATIONS OF ISMA MATED GFR ARE PERFORMED USING THE 2020 CKD-EPI STUDY REFIT EQUATION WITHOUT THE RACE VARIABLE FOR THE IDMS-TRACEABLE CREATININE METHODS.https://jasn.asnjournals.org/content/early//A SN.8616703887 CBCon 08-28-2022 Erythrocyte distribution width (RBC) [Ratio] 14.6 % High 11.5 - 14.5 [facility] Comment on above: Performed By: #### C BC ####[id number] [place] [address] Hematocrit (Bld) [Volume fraction] 32.5 % Low 41.0 - 52.0 [facility] Comment on above: Performed By: #### C BC ####[id number] [place] [address] Hemoglobin (Bld) [Mass/Vol] 9.9 g/dL Low 13.5 - 17.5 [facility] Comment on above: Performed By: #### C BC ####[id number] [place] [address] MCHC (RBC) [Mass/Vol] 30.5 g/dL Low 32.0 - 36.0 [facility] Comment on above: Performed By: #### C BC ####[id number] [place] [address] MCV (RBC) [Entitic vol] 101 fL High 80 - 100 [facility] Comment on above: Performed By: #### C BC ####[id number] [place] [address] NUCLEATED RBC 0.0 /100 WBC Normal 0.0-0.0 [facility] Comment on above: Performed By: #### C BC ####[id number] [place] [address] Platelets (Bld) [#/Vol] 383 10*3/uL Normal 150 - 450 [facility] Comment on above: Performed By: #### C BC ####[id number] [place] [address] RBC 3.21 x10E12/L Low 4.50 - 5.90 [facility] Comment on above: Performed By: #### C BC ####[id number] [place] [address] WBC (Bld) [#/Vol] 8.9 10*3/uL Normal 4.4 - 11.3 [facility] Comment on above: Performed By: #### C ####[id number] [place] [address] Clinical Event Note-Epicardi al wireson 08-28-2022 Clinical Event Note-Epicardial wires Normal [facility] Daily Progress Note-Cardiac Surgeryon 08-28-2022 Daily Progress Note-Cardiac Surgery Normal [facility] Daily Progress Note-Vascular Medicineon 08-28-2022 Daily Progress Note-Vascular Medicine Normal [facility] Laboratory - Coagulationon 0 08-28-2022 INR Coag (PPP) [Relative time] 2.1 {INR} above high threshold 0.9 - 1.1 [facility] Work Phone: PT Coag (PPP) [Time] 23.8 s above high threshold 9.8 - 12.8 [facility] Work Phone: Comment on above: Note new reference r dima as of 08/02/2022 at 10:00am. Laboratory - Hematology and Cell countson 08-28-2022 Erythrocyte distribution width (RBC) [Ratio] 14.6 % above high threshold See Below [facility] Work Phone: Comment on above: Reference Range: 11. 5 - 14.5 Hematocrit (Bld) [Volume fraction] 32.5 % below low threshold See Below [facility] Work Phone: Comment on above: Reference Range: 41. 0 - 52.0 Hemoglobin (Bld) [Mass/Vol] 9.9 g/dL below low threshold See Below [facility] Work Phone: Comment on above: Reference Range: 13. 5 - 17.5 MCHC (RBC) [Mass/Vol] 30.5 g/dL below low threshold See Below [facility] Work Phone: Comment on above: Reference Range: 32. 0 - 36.0 MCV (RBC) [Entitic vol] 101 fL above high threshold 80 - 100 [facility] Work Phone: Platelets (Bld) [#/Vol] 383 10*3/uL 150 - 450 [facility] Work Phone: RBC (Bld) [#/Vol] 3.21 {x10E12/L} below low threshold See Below [facility] Work Phone: Comment on above: Reference Range: 4.5 0 - 5.90 WBC (Bld) [#/Vol] 8.9 10*3/uL 4.4 - 11.3 [facility] Work Phone: MAGNESIUMon 08-28-2022 Magnesium [Mass/Vol] 2.22 mg/dL Normal 1.60 - 2.40 [facility] Comment on above: Performed By: #### M G ####[id number] [place] [address] Magnesium, Serumon 3 Magnesium [Mass/Vol] 2.22 mg/dL See Below [facility] Work Phone: Comment on above: Reference Range: 1.6 0 - 2.40 No Panel Informationon 08-28 0.0 {/100_WBC} 0.0-0.0 [facility] Work Phone: PT/INRon 08-28-2022 PT Coag (PPP) [Time] 23.8 s High 9.8 - 12.8 [facility] Comment on above: Result Comment: Note new reference range as of 08/02/2022 at 10:00am. Performed By: #### P TINR ####[id number] [place] [address] PT, INR 2.1 High 0.9 - 1.1 [facility] Comment on above: Performed By: #### P TINR ####[id number] [place] [address] PROTHROMBIN TIME Canceled Normal [facility] Comment on above: Order Comment: TEST PT/INR WAS CANCELLED, 08/28/2022 08:22 NO SPECIMEN RECEIVED IN LAB. Result Comment: Note new reference range as of 08/02/2022 at 10:00am. Performed By: #### P TINR ####[id number] [place] [address] PT, INR Canceled Normal [facility] Comment on above: Order Comment: TEST PT/INR WAS CANCELLED, 08/28/2022 08:22 NO SPECIMEN RECEIVED IN LAB. Performed By: #### P TINR ####[id number] [place] [address] RENAL FUNCTION PANELon 08-28 Albumin [Mass/Vol] 3.6 g/dL Normal 3.4 - 5.0 [facility] Comment on above: Performed By: #### R ENAL ####[id number] [place] [address] Anion gap [Moles/Vol] 16 mmol/L Normal 10 - 20 [facility] Comment on above: Performed By: #### R ENAL ####[id number] [place] [address] Calcium [Mass/Vol] 8.8 mg/dL Normal 8.6 - 10.6 [facility] Comment on above: Performed By: #### R ENAL ####[id number] [place] [address] Chloride [Moles/Vol] 103 mmol/L Normal 98 - 107 [facility] Comment on above: Performed By: #### R ENAL ####[id number] [place] [address] Creatinine [Mass/Vol] 1.54 mg/dL High 0.50 - 1.30 [facility] Comment on above: Performed By: #### R ENAL ####[id number] [place] [address] GFR/1.73 sq M.predicted among non-blacks MDRD (S/P/Bld) [Vol rate/Area] 57 mL/min/{1.73_m2} Abnormal >90 [facility] Comment on above: Result Comment: CALC ULATIONS OF ESTIMATED GFR ARE PERFORMED USING THE 2020 CKD-EPI STUDY REFIT EQUATION WITHOUT THE RACE VARIABLE FOR THE IDMS-TRACEABLE CREATININE METHODS.https://jasn.asnjournals.org/content//A SN.3420797357 Performed By: #### R ENAL ####[id number] [place] [address] Glucose [Mass/Vol] 93 mg/dL Normal 74 - 99 [facility] Comment on above: Performed By: #### R ENAL ####[id number] [place] [address] HCO3 (Bld) [Moles/Vol] 27 mmol/L Normal 21 - 32 [facility] Comment on above: Performed By: #### R ENAL ####[id number] [place] [address] Phosphate [Mass/Vol] 3.3 mg/dL Normal 2.5 - 4.9 [facility] Comment on above: Result Comment: The performance characteristics of phosphorus testing in heparinized plasma have been validated by the individual laboratory site where testing is performed. Testing on heparinized plasma is not approved by the FDA; however, such approval is not necessary. Performed By: #### R ENAL ####[id number] [place] [address] Potassium [Moles/Vol] 4.6 mmol/L Normal 3.5 - 5.3 [facility] Comment on above: Performed By: #### R ENAL ####[id number] [place] [address] Sodium [Moles/Vol] 141 mmol/L Normal 136 - 145 [facility] Comment on above: Performed By: #### R ENAL ####[id number] [place] [address] Urea nitrogen [Mass/Vol] 25 mg/dL High 6 - 23 [facility] Comment on above: Performed By: #### R ENAL ####[id number] [place] [address] Renal Function Panelon 08-28 Albumin BCP dye [Mass/Vol] 3.6 g/dL 3.4 - 5.0 [facility] Work Phone: Anion gap [Moles/Vol] 16 mmol/L 10 - 20 [facility] Work Phone: Calcium [Mass/Vol] 8.8 mg/dL 8.6 - 10.6 [facility] Work Phone: Chloride [Moles/Vol] 103 mmol/L 98 - 107 -[email or web address]@ [email or web address] Work Phone: CO2 [Moles/Vol] 27 mmol/L 21 - [employer] [facility] [facility] Work Phone: Creatinine [Mass/Vol] 1.54 mg/dL above high threshold See Below [facility] [employer] Work Phone: Comment on above: Reference Range: 0.5 0 - 1.30 Glucose [Mass/Vol] 93 mg/dL 74 - 99 [employer] Work Phone: Phosphate [Mass/Vol] 3.3 mg/dL 2.5 - 4.9 [employer] Work Phone: Comment on above: The performance chidi acteristics of phosphorus testing in heparinized plasma have been validated by the individual laboratory site where testing is performed. Testing on heparinized plasma is not approved by the FDA; however, such approval is not necessary. Potassium [Moles/Vol] 4.6 mmol/L 3.5 - 5.3 [facility] Work Phone: Sodium [Moles/Vol] 141 mmol/L 136 - 145 [employer] [facility] Work Phone: Urea nitrogen [Mass/Vol] 25 mg/dL above high threshold 6 - 23 [facility] Work Phone: Renal Function Panel 57 {mL/min/1.73m2} Abnormal >90 [facility] [employer] Work Phone: Comment on above: CALCULATIONS OF ISMA MATED GFR ARE PERFORMED USING THE 2020 CKD-EPI STUDY REFIT EQUATION WITHOUT THE RACE VARIABLE FOR THE IDMS-TRACEABLE CREATININE METHODS.https://jasn.asnjournals.org/content//A SN.4091060950 CBCon 08-27-2022 Erythrocyte distribution width (RBC) [Ratio] 14.4 % Normal 11.5 - 14.5 [facility] Comment on above: Performed By: #### C BC ####[id number] [place] [address] Hematocrit (Bld) [Volume fraction] 33.1 % Low 41.0 - 52.0 [facility] Comment on above: Performed By: #### C BC ####[id number] [place] [address] Hemoglobin (Bld) [Mass/Vol] 10.1 g/dL Low 13.5 - 17.5 [facility] Comment on above: Performed By: #### C BC ####[id number] [place] [address] MCHC (RBC) [Mass/Vol] 30.5 g/dL Low 32.0 - 36.0 [facility] Comment on above: Performed By: #### C BC ####[id number] [place] [address] MCV (RBC) [Entitic vol] 102 fL High 80 - 100 [facility] Comment on above: Performed By: #### C BC ####[id number] [place] [address] NUCLEATED RBC 0.0 /100 WBC Normal 0.0-0.0 [facility] Comment on above: Performed By: #### C BC ####[id number] [place] [address] Platelets (Bld) [#/Vol] 390 10*3/uL Normal 150 - 450 [facility] Comment on above: Performed By: #### C BC ####[id number] [place] [address] RBC 3.26 x10E12/L Low 4.50 - 5.90 [facility] Comment on above: Performed By: #### C BC ####[id number] [place] [address] WBC (Bld) [#/Vol] 9.4 10*3/uL Normal 4.4 - 11.3 [facility] Comment on above: Performed By: #### C BC ####[id number] [place] [address] Daily Progress Note-Cardiac Surgeryon 08-27-2022 Daily Progress Note-Cardiac Surgery Normal [facility] Daily Progress Note-Vascular Medicineon 08-27-2022 Daily Progress Note-Vascular Medicine Normal [facility] HEPARIN ASSAY,UFHon 08-28-19 23 HEPARIN ASSAY,UFH 0.4 IU/mL Normal [facility], [place] [facility] Comment on above: Result Comment: The therapeutic reference range for UFH may be either 0.3-0.6 IU/mL or 0.3-0.7 IU/mL based on the clinical setting for anticoagulant therapy and the associated nomogram used. For heparin dosing guidelines based on clinical scenario and Heparin Assay results, please refer to local Pharmacy and the [facility] Guidelines for Anticoagulation therapy available on the [facility] intranet at:[email or web address] Performed By: #### H AUF ####[id number] [place] [address] Heparin assay, UFHon 023 Heparin unfractionated Chromogenic method Qn (PPP) 0.4 {IU/mL} [facility] Work Phone: Comment on above: The therapeutic refe rence range for UFH may be either 0.3-0.6 IU/mL or 0.3-0.7 IU/mL based on the clinical setting for anticoagulant therapy and the associated nomogram used. For heparin dosing guidelines based on clinical scenario and Heparin Assay results, please refer to local Pharmacy and the [facility] Guidelines for Anticoagulation therapy available on the [facility] intranet at:[email or web address] Laboratory - Coagulationon 0 08-27-2022 INR Coag (PPP) [Relative time] 1.5 {INR} above high threshold 0.9 - 1.1 [facility] Work Phone: PT Coag (PPP) [Time] 16.5 s above high threshold 9.8 - 12.8 [facility] Work Phone: Comment on above: Note new reference r dima as of 08/02/2022 at 10:00am. INR Coag (PPP) [Relative time] Canceled [facility] Work Phone: PT Coag (PPP) [Time] Canceled [facility] Work Phone: Comment on above: Note new reference r dima as of 08/02/2022 at 10:00am. Laboratory - Hematology and Cell countson 08-27-2022 Erythrocyte distribution width (RBC) [Ratio] 14.4 % See Below [facility] Work Phone: Comment on above: Reference Range: 11. 5 - 14.5 Hematocrit (Bld) [Volume fraction] 33.1 % below low threshold See Below [facility] Work Phone: Comment on above: Reference Range: 41. 0 - 52.0 Hemoglobin (Bld) [Mass/Vol] 10.1 g/dL below low threshold See Below [facility] Work Phone: Comment on above: Reference Range: 13. 5 - 17.5 MCHC (RBC) [Mass/Vol] 30.5 g/dL below low threshold See Below [facility] Work Phone: Comment on above: Reference Range: 32. 0 - 36.0 MCV (RBC) [Entitic vol] 102 fL above high threshold 80 - 100 [facility] Work Phone: Platelets (Bld) [#/Vol] 390 10*3/uL 150 - 450 [facility] Work Phone: RBC (Bld) [#/Vol] 3.26 {x10E12/L} below low threshold See Below [facility] Work Phone: Comment on above: Reference Range: 4.5 0 - 5.90 WBC (Bld) [#/Vol] 9.4 10*3/uL 4.4 - 11.3 [facility] Work Phone: MAGNESIUMon 08-27-2022 Magnesium [Mass/Vol] 2.26 mg/dL Normal 1.60 - 2.40 [facility] Comment on above: Performed By: #### M G ####[id number] [place] [address] Magnesium, Serumon Magnesium [Mass/Vol] 2.26 mg/dL See Below -[facility] Work Phone: Comment on above: Reference Range: 1.6 0 - 2.40 No Panel Informationon 08-27 0.0 {/100_WBC} 0.0-0.0 -[facility] Work Phone: PT/INRon 08-27-2022 PT Coag (PPP) [Time] 16.5 s High 9.8 - 12.8 [facility] Comment on above: Result Comment: Note new reference range as of 08/02/2022 at 10:00am. Performed By: #### P TINR ####[id number] [place] [address] PT, INR 1.5 High 0.9 - 1.1 [facility] Comment on above: Performed By: #### P TINR ####[id number] [place] [address] RENAL FUNCTION PANELon 08-27 Albumin [Mass/Vol] 3.6 g/dL Normal 3.4 - 5.0 [facility] Comment on above: Performed By: #### R ENAL ####[id number] [place] [address] Anion gap [Moles/Vol] 15 mmol/L Normal 10 - 20 [facility] Comment on above: Performed By: #### R ENAL ####[id number] [place] [address] Calcium [Mass/Vol] 9.0 mg/dL Normal 8.6 - 10.6 [facility] Comment on above: Performed By: #### R ENAL ####[id number] [place] [address] Chloride [Moles/Vol] 100 mmol/L Normal 98 - 107 [facility] Comment on above: Performed By: #### R ENAL ####[id number] [place] [address] Creatinine [Mass/Vol] 1.73 mg/dL High 0.50 - 1.30 [facility] Comment on above: Performed By: #### R ENAL ####[id number] [place] [address] GFR/1.73 sq M.predicted among non-blacks MDRD (S/P/Bld) [Vol rate/Area] 50 mL/min/{1.73_m2} Abnormal >90 [facility] Comment on above: Result Comment: CALC ULATIONS OF ESTIMATED GFR ARE PERFORMED USING THE 2020 CKD-EPI STUDY REFIT EQUATION WITHOUT THE RACE VARIABLE FOR THE IDMS-TRACEABLE CREATININE METHODS.https://jasn.asnjournals.org/content/early/A SN.8871660427 Performed By: #### R ENAL ####[id number] [place] [address] Glucose [Mass/Vol] 99 mg/dL Normal 74 - 99 [facility] Comment on above: Performed By: #### R ENAL ####[id number] [place] [address] HCO3 (Bld) [Moles/Vol] 29 mmol/L Normal 21 - 32 [facility] Comment on above: Performed By: #### R ENAL ####[id number] [place] [address] Phosphate [Mass/Vol] 4.7 mg/dL Normal 2.5 - 4.9 [facility] Comment on above: Result Comment: The performance characteristics of phosphorus testing in heparinized plasma have been validated by the individual laboratory site where testing is performed. Testing on heparinized plasma is not approved by the FDA; however, such approval is not necessary. Performed By: #### R ENAL ####[id number] [place] [address] Potassium [Moles/Vol] 4.6 mmol/L Normal 3.5 - 5.3 [facility] Comment on above: Performed By: #### R ENAL ####[id number] [place] [address] Sodium [Moles/Vol] 139 mmol/L Normal 136 - 145 [facility] Comment on above: Performed By: #### R ENAL ####[id number] [place] [address] Urea nitrogen [Mass/Vol] 29 mg/dL High 6 - 23 [facility] Comment on above: Performed By: #### R ENAL ####[id number] [place] [address] Renal Function Panelon 08-27 Albumin BCP dye [Mass/Vol] 3.6 g/dL 3.4 - 5.0 [facility] Work Phone: Anion gap [Moles/Vol] 15 mmol/L 10 - 20 [facility] Work Phone: Calcium [Mass/Vol] 9.0 mg/dL 8.6 - 10.6 [facility] Work Phone: Chloride [Moles/Vol] 100 mmol/L 98 - 107 [facility] Work Phone: CO2 [Moles/Vol] 29 mmol/L 21 - 32 [facility] Work Phone: Creatinine [Mass/Vol] 1.73 mg/dL above high threshold See Below -[facility] Work Phone: Comment on above: Reference Range: 0.5 0 - 1.30 Glucose [Mass/Vol] 99 mg/dL 74 - 99 [facility] Work Phone: Phosphate [Mass/Vol] 4.7 mg/dL 2.5 - 4.9 -[facility] Work Phone: Comment on above: The performance chidi acteristics of phosphorus testing in heparinized plasma have been validated by the individual laboratory site where testing is performed. Testing on heparinized plasma is not approved by the FDA; however, such approval is not necessary. Potassium [Moles/Vol] 4.6 mmol/L 3.5 - 5.3 - [facility] Work Phone: Sodium [Moles/Vol] 139 mmol/L 136 - 145 [facility] Work Phone: Urea nitrogen [Mass/Vol] 29 mg/dL above high threshold 6 - 23 -[facility] Work Phone: Renal Function Panel 50 {mL/min/1.73m2} Abnormal >90 [facility] Work Phone: Comment on above: CALCULATIONS OF ISMA MATED GFR ARE PERFORMED USING THE 2020 CKD-EPI STUDY REFIT EQUATION WITHOUT THE RACE VARIABLE FOR THE IDMS-TRACEABLE CREATININE METHODS.https://jasn.asnjournals.org/content/early/A .1488264935 CBCon 08-26-2022 Erythrocyte distribution width (RBC) [Ratio] 14.2 % Normal 11.5 - 14.5 [facility] Comment on above: Performed By: #### C BC ####[id number] [place] [address] Hematocrit (Bld) [Volume fraction] 33.6 % Low 41.0 - 52.0 [facility] Comment on above: Performed By: #### C BC ####[id number] [place] [address] Hemoglobin (Bld) [Mass/Vol] 10.1 g/dL Low 13.5 - 17.5 [facility] Comment on above: Performed By: #### C BC ####[id number] [place] [address] MCHC (RBC) [Mass/Vol] 30.1 g/dL Low 32.0 - 36.0 [facility] Comment on above: Performed By: #### C BC ####[id number] [place] [address] MCV (RBC) [Entitic vol] 103 fL High 80 - 100 [facility] Comment on above: Performed By: #### C BC ####[id number] [place] [address] NUCLEATED RBC 0.0 /100 WBC Normal 0.0-0.0 [facility] Comment on above: Performed By: #### C BC ####[id number] [place] [address] Platelets (Bld) [#/Vol] 354 10*3/uL Normal 150 - 450 [facility] Comment on above: Performed By: #### C BC ####[id number] [place] [address] RBC 3.27 x10E12/L Low 4.50 - 5.90 [facility] Comment on above: Performed By: #### C BC ####[id number] [place] [address] WBC (Bld) [#/Vol] 8.6 10*3/uL Normal 4.4 - 11.3 [facility] Comment on above: Performed By: #### C BC ####[id number] [place] [address] Daily Progress Note-Cardiac Surgeryon 08-26-2022 Daily Progress Note-Cardiac Surgery Normal [facility] Daily Progress Note-Vascular Medicineon 08-26-2022 Daily Progress Note-Vascular Medicine Normal [facility] HEPARIN ASSAY,UFHon 08-27-19 23 HEPARIN ASSAY,UFH 0.4 IU/mL Normal [facility], [place], [facility] Comment on above: Result Comment: The therapeutic reference range for UFH may be either 0.3-0.6 IU/mL or 0.3-0.7 IU/mL based on the clinical setting for anticoagulant therapy and the associated nomogram used. For heparin dosing guidelines based on clinical scenario and Heparin Assay results, please refer to local Pharmacy and [facility] [place] [place] Guidelines for Anticoagulation therapy available on the [facility] intranet at:[email or web address] Performed By: #### H AUF ####[id number] [place] [address] Heparin assay, UFHon 023 Heparin unfractionated Chromogenic method Qn (PPP) 0.4 {IU/mL} [employer] Work Phone: Comment on above: The therapeutic refe rence range for UFH may be either 0.3-0.6 IU/mL or 0.3-0.7 IU/mL based on the clinical setting for anticoagulant therapy and the associated nomogram used. For heparin dosing guidelines based on clinical scenario and Heparin Assay results, please refer to local Pharmacy and [facility] [place] [place] Guidelines for Anticoagulation therapy available on the [facility] intranet at:[email or web address] Laboratory - Coagulationon 0 08-26-2022 INR Coag (PPP) [Relative time] 1.4 {INR} above high threshold 0.9 - 1.1 [employer] Work Phone: PT Coag (PPP) [Time] 15.9 s above high threshold 9.8 - 12.8 [facility] [employer] Work Phone: Comment on above: Note new reference r dima as of 08/02/2022 at 10:00am. Laboratory - Hematology and Cell countson 08-26-2022 Erythrocyte distribution width (RBC) [Ratio] 14.2 % See Below [facility] Work Phone: Comment on above: Reference Range: 11. 5 - 14.5 Hematocrit (Bld) [Volume fraction] 33.6 % below low threshold See Below [facility] Work Phone: Comment on above: Reference Range: 41. 0 - 52.0 Hemoglobin (Bld) [Mass/Vol] 10.1 g/dL below low threshold See Below [facility] Work Phone: Comment on above: Reference Range: 13. 5 - 17.5 MCHC (RBC) [Mass/Vol] 30.1 g/dL below low threshold See Below [facility] Work Phone: Comment on above: Reference Range: 32. 0 - 36.0 MCV (RBC) [Entitic vol] 103 fL above high threshold 80 - 100 -[facility] Work Phone: Platelets (Bld) [#/Vol] 354 10*3/uL 150 - 450 -[facility] Work Phone: RBC (Bld) [#/Vol] 3.27 {x10E12/L} below low threshold See Below [facility] Work Phone: Comment on above: Reference Range: 4.5 0 - 5.90 WBC (Bld) [#/Vol] 8.6 10*3/uL 4.4 - 11.3 -[facility] Work Phone: MAGNESIUMon 08-26-2022 Magnesium [Mass/Vol] 2.34 mg/dL Normal 1.60 - 2.40 [facility] Comment on above: Performed By: #### M G ####[id number] [place] [address] Magnesium, Serumon 3 Magnesium [Mass/Vol] 2.34 mg/dL See Below -[facility] Work Phone: Comment on above: Reference Range: 1.6 0 - 2.40 No Panel Informationon 08-26 0.0 {/100_WBC} 0.0-0.0 [facility] mary [facility] Work Phone: Nutrition Therapy-Follow Upo n 08-26-2022 Nutrition Therapy-Follow Up Normal [facility] PT/INRon 08-26-2022 PROTHROMBIN TIME Canceled Normal [facility] Comment on above: Order Comment: TEST PT/INR WAS CANCELLED, 08/26/2022 09:13 NO SPECIMEN RECEIVED IN LAB. Result Comment: Note new reference range as of 08/02/2022 at 10:00am. Performed By: #### P TINR ####[id number] [place] [address] PT, INR Canceled Normal [facility] Comment on above: Order Comment: TEST PT/INR WAS CANCELLED, 08/26/2022 09:13 NO SPECIMEN RECEIVED IN LAB. Performed By: #### P TINR ####[id number] [place] [address] PT Coag (PPP) [Time] 15.9 s High 9.8 - 12.8 [facility] Comment on above: Result Comment: Note new reference range as of 08/02/2022 at 10:00am. Performed By: #### P TINR ####[id number] [place] [address] PT, INR 1.4 High 0.9 - 1.1 [facility] Comment on above: Performed By: #### P TINR ####[id number] [place] [address] RENAL FUNCTION PANELon 08-26 Albumin [Mass/Vol] 3.6 g/dL Normal 3.4 - 5.0 [facility] Comment on above: Performed By: #### R ENAL ####[id number] [place] [address] Anion gap [Moles/Vol] 14 mmol/L Normal - 20 [facility] Comment on above: Performed By: #### R ENAL ####[id number] [place] [address] Calcium [Mass/Vol] 9.1 mg/dL Normal 8.6 - 10.6 [facility] Comment on above: Performed By: #### R ENAL ####[id number] [place] [address] Chloride [Moles/Vol] 97 mmol/L Low 98 - 107 [facility] Comment on above: Performed By: #### R ENAL ####[id number] [place] [address] Creatinine [Mass/Vol] 1.70 mg/dL High 0.50 - 1.30 [facility] Comment on above: Performed By: #### R ENAL ####[id number] [place] [address] GFR/1.73 sq M.predicted among non-blacks MDRD (S/P/Bld) [Vol rate/Area] 51 mL/min/{1.73_m2} Abnormal >90 [facility] Comment on above: Result Comment: CALC ULATIONS OF ESTIMATED GFR ARE PERFORMED USING THE 2020 CKD-EPI STUDY REFIT EQUATION WITHOUT THE RACE VARIABLE FOR THE IDMS-TRACEABLE CREATININE METHODS.https://jasn.asnjournals.org/content/early/A SN.4212333206 Performed By: #### R ENAL ####[id number] [place] [address] Glucose [Mass/Vol] 102 mg/dL High 74 - 99 [facility] Comment on above: Performed By: #### R ENAL ####[id number] [place] [address] HCO3 (Bld) [Moles/Vol] 32 mmol/L Normal 21 - 32 [facility] Comment on above: Performed By: #### R ENAL ####[id number] [place] [address] Phosphate [Mass/Vol] 4.4 mg/dL Normal 2.5 - 4.9 [facility] Comment on above: Result Comment: The performance characteristics of phosphorus testing in heparinized plasma have been validated by the individual laboratory site where testing is performed. Testing on heparinized plasma is not approved by the FDA; however, such approval is not necessary. Performed By: #### R ENAL ####[id number] [place] [address] Potassium [Moles/Vol] 5.0 mmol/L Normal 3.5 - 5.3 [facility] Comment on above: Performed By: #### R ENAL ####[id number] [place] [address] Sodium [Moles/Vol] 138 mmol/L Normal 136 - 145 [facility] Comment on above: Performed By: #### R ENAL ####[id number] [place] [address] Urea nitrogen [Mass/Vol] 29 mg/dL High 6 - 23 [facility] Comment on above: Performed By: #### R ENAL ####[id number] [place] [address] Renal Function Panelon 08-26 Albumin BCP dye [Mass/Vol] 3.6 g/dL 3.4 - 5.0 [facility] Work Phone: Anion gap [Moles/Vol] 14 mmol/L 10 - 20 [facility] Work Phone: Calcium [Mass/Vol] 9.1 mg/dL 8.6 - 10.6 [facility] Work Phone: Chloride [Moles/Vol] 97 mmol/L below low threshold 98 - 107 [facility] Work Phone: CO2 [Moles/Vol] 32 mmol/L 21 - 32 [facility] Work Phone: Creatinine [Mass/Vol] 1.70 mg/dL above high threshold See Below [facility] Work Phone: Comment on above: Reference Range: 0.5 0 - 1.30 Glucose [Mass/Vol] 102 mg/dL above high threshold 74 - 99 [facility] Work Phone: Phosphate [Mass/Vol] 4.4 mg/dL 2.5 - 4.9 [facility] Work Phone: Comment on above: The performance chidi acteristics of phosphorus testing in heparinized plasma have been validated by the individual laboratory site where testing is performed. Testing on heparinized plasma is not approved by the FDA; however, such approval is not necessary. Potassium [Moles/Vol] 5.0 mmol/L 3.5 - 5.3 [facility] Work Phone: Sodium [Moles/Vol] 138 mmol/L 136 - 145 [facility] Work Phone: Urea nitrogen [Mass/Vol] 29 mg/dL above high threshold 6 - 23 [facility] Work Phone: Renal Function Panel 51 {mL/min/1.73m2} Abnormal >90 [facility] Work Phone: Comment on above: CALCULATIONS OF ISMA MATED GFR ARE PERFORMED USING THE 2020 CKD-EPI STUDY REFIT EQUATION WITHOUT THE RACE VARIABLE FOR THE IDMS-TRACEABLE CREATININE METHODS.https://jasn.asnjournals.org/content//A .6261975269 CBCon 08-25-2022 Erythrocyte distribution width (RBC) [Ratio] 14.1 % Normal 11.5 - 14.5 [facility] Comment on above: Performed By: #### C BC ####[id number] [place] [address] Hematocrit (Bld) [Volume fraction] 32.8 % Low 41.0 - 52.0 [facility] Comment on above: Performed By: #### C BC ####[id number] [place] [address] Hemoglobin (Bld) [Mass/Vol] 10.2 g/dL Low 13.5 - 17.5 [facility] Comment on above: Performed By: #### C BC ####[id number] [place] [address] MCHC (RBC) [Mass/Vol] 31.1 g/dL Low 32.0 - 36.0 [facility] Comment on above: Performed By: #### C BC ####[id number] [place] [address] MCV (RBC) [Entitic vol] 99 fL Normal 80 - 100 [facility] Comment on above: Performed By: #### C BC ####[id number] [place] [address] NUCLEATED RBC 0.0 /100 WBC Normal 0.0-0.0 [facility] Comment on above: Performed By: #### C BC ####[id number] [place] [address] Platelets (Bld) [#/Vol] 316 10*3/uL Normal 150 - 450 [facility] Comment on above: Performed By: #### C BC ####[id number] [place] [address] RBC 3.31 x10E12/L Low 4.50 - 5.90 [facility] Comment on above: Performed By: #### C BC ####[id number] [place] [address] WBC (Bld) [#/Vol] 8.6 10*3/uL Normal 4.4 - 11.3 [facility] Comment on above: Performed By: #### C BC ####[id number] [place] [address] Daily Progress Note-Cardiac Surgeryon 08-25-2022 Daily Progress Note-Cardiac Surgery Normal [facility] Daily Progress Note-Supporti ve Oncologyon 08-25-2022 Daily Progress Note-Supportive Oncology Normal [facility] Daily Progress Note-Vascular Medicineon 08-25-2022 Daily Progress Note-Vascular Medicine Normal [facility] HEPARIN ASSAY,UFHon 08-26-19 23 HEPARIN ASSAY,UFH 0.3 IU/mL Normal [facility], [place] Comment on above: Result Comment: The therapeutic reference range for UFH may be either 0.3-0.6 IU/mL or 0.3-0.7 IU/mL based on the clinical setting for anticoagulant therapy and the associated nomogram used. For heparin dosing guidelines based on clinical scenario and Heparin Assay results, please refer to local Pharmacy and the [facility] Guidelines for Anticoagulation therapy available on the [facility] intranet at:[email or web address] Performed By: #### H AUF ####[id number] [address] [place] [address] Heparin assay, UFHon 023 Heparin unfractionated Chromogenic method Qn (PPP) 0.3 {IU/mL} [facility] Work Phone: Comment on above: The therapeutic refe rence range for UFH may be either 0.3-0.6 IU/mL or 0.3-0.7 IU/mL based on the clinical setting for anticoagulant therapy and the associated nomogram used. For heparin dosing guidelines based on clinical scenario and Heparin Assay results, please refer to local Pharmacy and [facility] [place], [place] Guidelines for Anticoagulation therapy available on the [facility] intranet at:[email or web address] Laboratory - Coagulationon 0 08-25-2022 INR Coag (PPP) [Relative time] Canceled [facility] Work Phone: INR Coag (PPP) [Relative time] 1.3 {INR} above high threshold 0.9 - 1.1 [facility] Work Phone: PT Coag (PPP) [Time] Canceled [facility] Work Phone: Comment on above: Note new reference r dima as of 08/02/2022 at 10:00am. PT Coag (PPP) [Time] 14.4 s above high threshold 9.8 - 12.8 [facility] Work Phone: Comment on above: Note new reference r dima as of 08/02/2022 at 10:00am. Laboratory - Hematology and Cell countson 08-25-2022 Erythrocyte distribution width (RBC) [Ratio] 14.1 % See Below [facility] Work Phone: Comment on above: Reference Range: 11. 5 - 14.5 Hematocrit (Bld) [Volume fraction] 32.8 % below low threshold See Below [facility] Work Phone: Comment on above: Reference Range: 41. 0 - 52.0 Hemoglobin (Bld) [Mass/Vol] 10.2 g/dL below low threshold See Below [facility] Work Phone: Comment on above: Reference Range: 13. 5 - 17.5 MCHC (RBC) [Mass/Vol] 31.1 g/dL below low threshold See Below [facility] Work Phone: Comment on above: Reference Range: 32. 0 - 36.0 MCV (RBC) [Entitic vol] 99 fL 80 - 100 [facility] Work Phone: Platelets (Bld) [#/Vol] 316 10*3/uL 150 - 450 [facility] Work Phone: RBC (Bld) [#/Vol] 3.31 {x10E12/L} below low threshold See Below [facility] Work Phone: Comment on above: Reference Range: 4.5 0 - 5.90 WBC (Bld) [#/Vol] 8.6 10*3/uL 4.4 - 11.3 -[facility] Work Phone: MAGNESIUMon 08-25-2022 Magnesium [Mass/Vol] 2.23 mg/dL Normal 1.60 - 2.40 [facility] Comment on above: Performed By: #### M G ####[id number] [place] [address] Magnesium, Serumon 3 Magnesium [Mass/Vol] 2.23 mg/dL See Below [facility] Work Phone: Comment on above: Reference Range: 1.6 0 - 2.40 No Panel Informationon 08-25 0.0 {/100_WBC} 0.0-0.0 [facility] Work Phone: Order Reconciliationon 08-25 Order Reconciliation Normal [facility] PT/INRon 08-25-2022 PT Coag (PPP) [Time] 14.4 s High 9.8 - 12.8 [facility] Comment on above: Result Comment: Note new reference range as of 08/02/2022 at 10:00am. Performed By: #### P TINR ####[id number] [place] [address] PT, INR 1.3 High 0.9 - 1.1 [facility] Comment on above: Performed By: #### P TINR ####[id number] [place] [address] RENAL FUNCTION PANELon 08-25 Albumin [Mass/Vol] 3.6 g/dL Normal 3.4 - 5.0 [facility] Comment on above: Performed By: #### R ENAL ####[id number] [place] [address] Anion gap [Moles/Vol] 12 mmol/L Normal 10 - 20 [facility] Comment on above: Performed By: #### R ENAL ####[id number] [place] [address] Calcium [Mass/Vol] 8.9 mg/dL Normal 8.6 - 10.6 [facility] Comment on above: Performed By: #### R ENAL ####[id number] [place] [address] Chloride [Moles/Vol] 94 mmol/L Low 98 - 107 [facility] Comment on above: Performed By: #### R ENAL ####[id number] [place] [address] Creatinine [Mass/Vol] 1.37 mg/dL High 0.50 - 1.30 [facility] Comment on above: Performed By: #### R ENAL ####[id number] [place] [address] GFR/1.73 sq M.predicted among non-blacks MDRD (S/P/Bld) [Vol rate/Area] 66 mL/min/{1.73_m2} Normal >90 [facility] Comment on above: Result Comment: CALC ULATIONS OF ESTIMATED GFR ARE PERFORMED USING THE 2020 CKD-EPI STUDY REFIT EQUATION WITHOUT THE RACE VARIABLE FOR THE IDMS-TRACEABLE CREATININE METHODS.https://jasn.asnjournals.org/content/early/A SN.8687409392 Performed By: #### R ENAL ####[id number] [place] [address] Glucose [Mass/Vol] 109 mg/dL High 74 - 99 [facility] Comment on above: Performed By: #### R ENAL ####[id number] [place] [address] HCO3 (Bld) [Moles/Vol] 36 mmol/L High 21 - 32 [facility] Comment on above: Performed By: #### R ENAL ####[id number] [place] [address] Phosphate [Mass/Vol] 4.5 mg/dL Normal 2.5 - 4.9 [facility] Comment on above: Result Comment: The performance characteristics of phosphorus testing in heparinized plasma have been validated by the individual laboratory site where testing is performed. Testing on heparinized plasma is not approved by the FDA; however, such approval is not necessary. Performed By: #### R ENAL ####[id number] [place] [address] Potassium [Moles/Vol] 4.2 mmol/L Normal 3.5 - 5.3 [facility] Comment on above: Performed By: #### R ENAL ####[id number] [place] [address] Sodium [Moles/Vol] 138 mmol/L Normal 136 - 145 [facility] Comment on above: Performed By: #### R ENAL ####[id number] [place] [address] Urea nitrogen [Mass/Vol] 28 mg/dL High 6 - 23 [facility] Comment on above: Performed By: #### R ENAL ####[id number] [place] [address] Rehab Note-physical therapis t - Student physical therapist\\.br\\on 08-25-2022 Rehab Note-physical therapist - Student physical therapist\\.br\\ Normal [facility] Renal Function Panelon 08-25 Albumin BCP dye [Mass/Vol] 3.6 g/dL 3.4 - 5.0 [facility] Work Phone: Anion gap [Moles/Vol] 12 mmol/L 10 - 20 [facility] Work Phone: Calcium [Mass/Vol] 8.9 mg/dL 8.6 - 10.6 [facility] Work Phone: Chloride [Moles/Vol] 94 mmol/L below low threshold 98 - 107 [facility] Work Phone: CO2 [Moles/Vol] 36 mmol/L above high threshold 21 - 32 [facility] Work Phone: Creatinine [Mass/Vol] 1.37 mg/dL above high threshold See Below [facility] Work Phone: Comment on above: Reference Range: 0.5 0 - 1.30 Glucose [Mass/Vol] 109 mg/dL above high threshold 74 - 99 [facility] Work Phone: Phosphate [Mass/Vol] 4.5 mg/dL 2.5 - 4.9 [facility] Work Phone: Comment on above: The performance chidi acteristics of phosphorus testing in heparinized plasma have been validated by the individual laboratory site where testing is performed. Testing on heparinized plasma is not approved by the FDA; however, such approval is not necessary. Potassium [Moles/Vol] 4.2 mmol/L 3.5 - 5.3 [facility] Work Phone: Sodium [Moles/Vol] 138 mmol/L 136 - 145 [facility] Work Phone: Urea nitrogen [Mass/Vol] 28 mg/dL above high threshold 6 - 23 [facility] Work Phone: Renal Function Panel 66 {mL/min/1.73m2} >90 [facility] Work Phone: Comment on above: CALCULATIONS OF ISMA MATED GFR ARE PERFORMED USING THE 2020 CKD-EPI STUDY REFIT EQUATION WITHOUT THE RACE VARIABLE FOR THE IDMS-TRACEABLE CREATININE METHODS.https://jasn.asnjournals.org/content/early/A SN.1177696468 CBCon 08-24-2022 Erythrocyte distribution width (RBC) [Ratio] 13.9 % Normal 11.5 - 14.5 [facility] Comment on above: Performed By: #### C BC ####[id number] [place] [address] Hematocrit (Bld) [Volume fraction] 31.1 % Low 41.0 - 52.0 [facility] Comment on above: Performed By: #### C BC ####[id number] [place] [address] Hemoglobin (Bld) [Mass/Vol] 10.0 g/dL Low 13.5 - 17.5 [facility] Comment on above: Performed By: #### C BC ####[id number] [place] [address] MCHC (RBC) [Mass/Vol] 32.2 g/dL Normal 32.0 - 36.0 [facility] Comment on above: Performed By: #### C BC ####[id number] [place] [address] MCV (RBC) [Entitic vol] 98 fL Normal 80 - 100 [facility] Comment on above: Performed By: #### C BC ####[id number] [place] [address] NUCLEATED RBC 0.0 /100 WBC Normal 0.0-0.0 [facility] Comment on above: Performed By: #### C BC ####[id number] [place] [address] Platelets (Bld) [#/Vol] 265 10*3/uL Normal 150 - 450 [facility] Comment on above: Performed By: #### C BC ####[id number] [place] [address] RBC 3.17 x10E12/L Low 4.50 - 5.90 [facility] Comment on above: Performed By: #### C BC ####[id number] [place] [address] WBC (Bld) [#/Vol] 7.8 10*3/uL Normal 4.4 - 11.3 [facility] Comment on above: Performed By: #### C BC ####[id number] Daily Progress Note-Cardiac Surgeryon 08-24-2022 Daily Progress Note-Cardiac Surgery Normal [facility] Daily Progress Note-Vascular Medicineon 08-24-2022 Daily Progress Note-Vascular Medicine Normal [facility] EMR ADDONon 08-24-2022 ADDON CONFIRMATION REQUEST REC'D Normal [facility] Comment on above: Performed By: #### E MRAD ####NO LOCATION NEEDED GLUCOSE-POCTon 08-24-2022 Glucose [Mass/Vol] 96 mg/dL Normal 74 - 99 [facility] Comment on above: Performed By: #### G EDI ####[id number] [place] [address] Glucose [Mass/Vol] 97 mg/dL Normal 74 - 99 [facility] Comment on above: Performed By: #### G EDI ####[id number] [place] [address] HEPARIN ASSAY,UFHon 08-25-19 23 HEPARIN ASSAY,UFH 0.3 IU/mL Normal [facility] [place] Comment on above: Result Comment: The therapeutic reference range for UFH may be either 0.3-0.6 IU/mL or 0.3-0.7 IU/mL based on the clinical setting for anticoagulant therapy and the associated nomogram used. For heparin dosing guidelines based on clinical scenario and Heparin Assay results, please refer to local Pharmacy and the [facility] Guidelines for Anticoagulation therapy available on the [facility] intranet at:[email or web address]_Guidelines_for_[email or web address] Performed By: #### H AUF ####[id number] [id number] HEPARIN ASSAY,UFH 0.3 IU/mL Normal [facility], [place] Comment on above: Result Comment: The therapeutic reference range for UFH may be either 0.3-0.6 IU/mL or 0.3-0.7 IU/mL based on the clinical setting for anticoagulant therapy and the associated nomogram used. For heparin dosing guidelines based on clinical scenario and Heparin Assay results, please refer to local Pharmacy and [facility] [place], [place] Guidelines for Anticoagulation therapy available on the [facility] intranet at:[email or web address]_Guidelines_for_[email or web address].aspx Performed By: #### H AUF ####[id number] [id number] HEPARIN ASSAY,UFH 0.5 IU/mL Normal [facility] [place] Comment on above: Result Comment: The therapeutic reference range for UFH may be either 0.3-0.6 IU/mL or 0.3-0.7 IU/mL based on the clinical setting for anticoagulant therapy and the associated nomogram used. For heparin dosing guidelines based on clinical scenario and Heparin Assay results, please refer to local Pharmacy and the [facility] Guidelines for Anticoagulation therapy available on the [facility] intranet at:[email or web address]_Guidelines_[email or web address].aspx Performed By: #### H AUF ####[id number] [place] [address] Heparin assay, UFHon 07-12-2 023 Heparin unfractionated Chromogenic method Qn (PPP) 0.3 {IU/mL} [facility] Work Phone: Comment on above: The therapeutic refe rence range for UFH may be either 0.3-0.6 IU/mL or 0.3-0.7 IU/mL based on the clinical setting for anticoagulant therapy and the associated nomogram used. For heparin dosing guidelines based on clinical scenario and Heparin Assay results, please refer to local Pharmacy and the [facility] Guidelines for Anticoagulation therapy available on the [facility] intranet at:[email or web address]/[email or web address]_Guidelines_for_Anticoagu.aspx Heparin unfractionated Chromogenic method Qn (PPP) 0.3 {IU/mL} [facility] Work Phone: Comment on above: The therapeutic refe rence range for UFH may be either 0.3-0.6 IU/mL or 0.3-0.7 IU/mL based on the clinical setting for anticoagulant therapy and the associated nomogram used. For heparin dosing guidelines based on clinical scenario and Heparin Assay results, please refer to local Pharmacy and the [facility] Guidelines for Anticoagulation therapy available on the [facility] intranet at:[email or web address]/[email or web address]_Guidelines_for_Anticoagu.aspx Heparin unfractionated Chromogenic method Qn (PPP) 0.5 {IU/mL} [facility] Work Phone: Comment on above: The therapeutic refe rence range for UFH may be either 0.3-0.6 IU/mL or 0.3-0.7 IU/mL based on the clinical setting for anticoagulant therapy and the associated nomogram used. For heparin dosing guidelines based on clinical scenario and Heparin Assay results, please refer to local Pharmacy and the [facility] Guidelines for Anticoagulation therapy available on the [facility] intranet at:[email or web address]_Guidelines_for_[email or web address] Laboratory - Chemistry and C hemistry - challengeon 08-24-2022 Glucose [Mass/Vol] 96 mg/dL 74 - 99 -[facility] Work Phone: Laboratory - Coagulationon 0 08-24-2022 INR Coag (PPP) [Relative time] 1.3 {INR} above high threshold 0.9 - 1.1 [facility] [employer] Work Phone: PT Coag (PPP) [Time] 14.4 s above high threshold 9.8 - 12.8 [facility] Work Phone: Comment on above: Note new reference r dima as of 08/02/2022 at 10:00am. Laboratory - Hematology and Cell countson 08-24-2022 Erythrocyte distribution width (RBC) [Ratio] 13.9 % See Below [facility] [employer] Work Phone: Comment on above: Reference Range: 11. 5 - 14.5 Hematocrit (Bld) [Volume fraction] 31.1 % below low threshold See Below [employer] Work Phone: Comment on above: Reference Range: 41. 0 - 52.0 Hemoglobin (Bld) [Mass/Vol] 10.0 g/dL below low threshold See Below [employer] Work Phone: Comment on above: Reference Range: 13. 5 - 17.5 MCHC (RBC) [Mass/Vol] 32.2 g/dL See Below [employer] Work Phone: Comment on above: Reference Range: 32. 0 - 36.0 MCV (RBC) [Entitic vol] 98 fL 80 - 100 [facility] [employer] Work Phone: Platelets (Bld) [#/Vol] 265 10*3/uL 150 - 450 [facility] [employer] Work Phone: RBC (Bld) [#/Vol] 3.17 {x10E12/L} below low threshold See Below [facility] [employer] Work Phone: Comment on above: Reference Range: 4.5 0 - 5.90 WBC (Bld) [#/Vol] 7.8 10*3/uL 4.4 - 11.3 [facility] Work Phone: MAGNESIUMon 08-24-2022 Magnesium [Mass/Vol] 2.10 mg/dL Normal 1.60 - 2.40 [facility] Comment on above: Performed By: #### M G ####[id number] [place] [address] Magnesium, Serumon 3 Magnesium [Mass/Vol] 2.10 mg/dL See Below [facility] Work Phone: Comment on above: Reference Range: 1.6 0 - 2.40 No Panel Informationon 08-24 0.0 {/100_WBC} 0.0-0.0 [facility] Work Phone: PT/INRon 08-24-2022 PT Coag (PPP) [Time] 14.4 s High 9.8 - 12.8 [facility] Comment on above: Result Comment: Note new reference range as of 08/02/2022 at 10:00am. Performed By: #### P TINR ####[id number] [place] [address] PT, INR 1.3 High 0.9 - 1.1 [facility] Comment on above: Performed By: #### P TINR ####[id number] [place] [address] RENAL FUNCTION PANELon 08-24 Albumin [Mass/Vol] 3.5 g/dL Normal 3.4 - 5.0 [facility] Comment on above: Performed By: #### R ENAL ####[id number] [place] [address] Anion gap [Moles/Vol] 15 mmol/L Normal 10 - 20 [facility] Comment on above: Performed By: #### R ENAL ####[id number] [place] [address] Calcium [Mass/Vol] 9.1 mg/dL Normal 8.6 - 10.6 [facility] Comment on above: Performed By: #### R ENAL ####[id number] [place] [address] Chloride [Moles/Vol] 92 mmol/L Low 98 - 107 [facility] Comment on above: Performed By: #### R ENAL ####[id number] [place] [address] Creatinine [Mass/Vol] 1.44 mg/dL High 0.50 - 1.30 [facility] Comment on above: Performed By: #### R ENAL ####[id number] [place] [address] GFR/1.73 sq M.predicted among non-blacks MDRD (S/P/Bld) [Vol rate/Area] 62 mL/min/{1.73_m2} Normal >90 [facility] Comment on above: Result Comment: CALC ULATIONS OF ESTIMATED GFR ARE PERFORMED USING THE 2020 CKD-EPI STUDY REFIT EQUATION WITHOUT THE RACE VARIABLE FOR THE IDMS-TRACEABLE CREATININE METHODS.https://jasn.asnjournals.org/content//A SN.2823050057 Performed By: #### R ENAL ####[id number] [place] [address] Glucose [Mass/Vol] 102 mg/dL High 74 - 99 [facility] Comment on above: Performed By: #### R ENAL ####[id number] [place] [address] HCO3 (Bld) [Moles/Vol] 34 mmol/L High 21 - 32 [facility] Comment on above: Performed By: #### R ENAL ####[id number] [place] [address] Phosphate [Mass/Vol] 4.1 mg/dL Normal 2.5 - 4.9 [facility] Comment on above: Result Comment: The performance characteristics of phosphorus testing in heparinized plasma have been validated by the individual laboratory site where testing is performed. Testing on heparinized plasma is not approved by the FDA; however, such approval is not necessary. Performed By: #### R ENAL ####[id number] [place] [address] Potassium [Moles/Vol] 3.5 mmol/L Normal 3.5 - 5.3 [facility] Comment on above: Performed By: #### R ENAL ####[id number] [place] [address] Sodium [Moles/Vol] 137 mmol/L Normal 136 - 145 [facility] Comment on above: Performed By: #### R ENAL ####[id number] [place] [address] Urea nitrogen [Mass/Vol] 32 mg/dL High 6 - 23 [facility] Comment on above: Performed By: #### R ENAL ####[id number] [place] [address] Radiologyon 08-24-2022 XR Chest 2 Views Normal -[facility] Work Phone: Renal Function Panelon 08-24 Albumin BCP dye [Mass/Vol] 3.5 g/dL 3.4 - 5.0 [facility] Work Phone: Anion gap [Moles/Vol] 15 mmol/L 10 - 20 [facility] Work Phone: Calcium [Mass/Vol] 9.1 mg/dL 8.6 - 10.6 [facility] Work Phone: Chloride [Moles/Vol] 92 mmol/L below low threshold 98 - 107 [facility] Work Phone: CO2 [Moles/Vol] 34 mmol/L above high threshold 21 - 32 [facility] Work Phone: Creatinine [Mass/Vol] 1.44 mg/dL above high threshold See Below [facility] Work Phone: Comment on above: Reference Range: 0.5 0 - 1.30 Glucose [Mass/Vol] 102 mg/dL above high threshold 74 - 99 [facility] Work Phone: Phosphate [Mass/Vol] 4.1 mg/dL 2.5 - 4.9 [facility] Work Phone: Comment on above: The performance chidi acteristics of phosphorus testing in heparinized plasma have been validated by the individual laboratory site where testing is performed. Testing on heparinized plasma is not approved by the FDA; however, such approval is not necessary. Potassium [Moles/Vol] 3.5 mmol/L 3.5 - 5.3 [facility] Work Phone: Sodium [Moles/Vol] 137 mmol/L 136 - 145 [facility] Work Phone: Urea nitrogen [Mass/Vol] 32 mg/dL above high threshold 6 - 23 [facility] Work Phone: Renal Function Panel 62 {mL/min/1.73m2} >90 [facility] Work Phone: Comment on above: CALCULATIONS OF ISMA MATED GFR ARE PERFORMED USING THE 2020 CKD-EPI STUDY REFIT EQUATION WITHOUT THE RACE VARIABLE FOR THE IDMS-TRACEABLE CREATININE METHODS.https://jasn.asnjournals.org/content//A SN.4157771129 TH CHEST 2 VIEW PA AND LATon 08-24-2022 CHEST 2 VIEW PA AND LAT Normal [facility] CALCIUM, IONIZEDon 3 CALCIUM,IONIZED 1.12 mmol/L Normal 1.10 - 1.33 [facility], [place] Comment on above: Result Comment: The performance characteristics of ionized calcium tested in heparinized plasma or serum have been validated by the individual laboratory site where testing is performed. Testing on heparinized plasma or serum is not approved by the FDA; however, such approval is not necessary. Performed By: #### I ONC1 ####[id number] [place] [address] CBCon 08-23-2022 Erythrocyte distribution width (RBC) [Ratio] 13.7 % Normal 11.5 - 14.5 [facility] Comment on above: Performed By: #### C BC ####[id number] [place] [address] Hematocrit (Bld) [Volume fraction] 31.0 % Low 41.0 - 52.0 [facility] Comment on above: Performed By: #### C BC ####[id number] [place] [address] Hemoglobin (Bld) [Mass/Vol] 10.0 g/dL Low 13.5 - 17.5 [facility] Comment on above: Performed By: #### C BC ####[id number] [place] [address] MCHC (RBC) [Mass/Vol] 32.3 g/dL Normal 32.0 - 36.0 [facility] Comment on above: Performed By: #### C BC ####[id number] [place] [address] MCV (RBC) [Entitic vol] 97 fL Normal 80 - 100 [facility] Comment on above: Performed By: #### C BC ####[id number] [place] [address] NUCLEATED RBC 0.0 /100 WBC Normal 0.0-0.0 [facility] Comment on above: Performed By: #### C BC ####[id number] [place] [address] Platelets (Bld) [#/Vol] 212 10*3/uL Normal 150 - 450 [facility] Comment on above: Performed By: #### C BC ####[id number] [place] [address] RBC 3.19 x10E12/L Low 4.50 - 5.90 [facility] Comment on above: Performed By: #### C BC ####[id number] [place] [address] WBC (Bld) [#/Vol] 8.8 10*3/uL Normal 4.4 - 11.3 [facility] Comment on above: Performed By: #### C BC ####[id number] [place] [address] Erythrocyte distribution width (RBC) [Ratio] 13.7 % Normal 11.5 - 14.5 [facility] Comment on above: Performed By: #### C BC ####[id number] [place] [address] Hematocrit (Bld) [Volume fraction] 31.1 % Low 41.0 - 52.0 [facility] Comment on above: Performed By: #### C BC ####[id number] [place] [address] Hemoglobin (Bld) [Mass/Vol] 10.6 g/dL Low 13.5 - 17.5 [facility] Comment on above: Performed By: #### C BC ####[id number] [place] [address] MCHC (RBC) [Mass/Vol] 34.1 g/dL Normal 32.0 - 36.0 [facility] Comment on above: Performed By: #### C BC ####[id number] [place] [address] MCV (RBC) [Entitic vol] 94 fL Normal 80 - 100 [facility] Comment on above: Performed By: #### C BC ####[id number] [place] [address] NUCLEATED RBC 0.0 /100 WBC Normal 0.0-0.0 [facility] Comment on above: Performed By: #### C BC ####[id number] [place] [address] Platelets (Bld) [#/Vol] 235 10*3/uL Normal 150 - 450 [facility] Comment on above: Performed By: #### C BC ####[id number] [place] [address] RBC 3.32 x10E12/L Low 4.50 - 5.90 [facility] Comment on above: Performed By: #### C BC ####[id number] [place] [address] WBC (Bld) [#/Vol] 10.6 10*3/uL Normal 4.4 - 11.3 [facility] Comment on above: Performed By: #### C BC ####[id number] [place] [address] COAGULATION SCREENon 023 aPTT Coag (Bld) [Time] 44 s High 27 - 38 [facility] Comment on above: Result Comment: Note new reference range as of 08/02/2022 at 10:00am. Performed By: #### C OAGS ####[id number] [place] [address] PT Coag (PPP) [Time] 14.0 s High 9.8 - 12.8 [facility] Comment on above: Result Comment: Note new reference range as of 08/02/2022 at 10:00am. Performed By: #### C OAGS ####[id number] [place] [address] PT, INR 1.2 High 0.9 - 1.1 [facility] Comment on above: Performed By: #### C OAGS ####[id number] [place] [address] Calcium, Ionized Levelon Calcium, Ionized Level 1.12 mmol/L See Below [facility] Work Phone: Comment on above: Reference Range: 1.1 0 - 1.33 The performance characteristics of ionized calcium tested in heparinized plasma or serum have been validated by the individual laboratory site where testing is performed. Testing on heparinized plasma or serum is not approved by the FDA; however, such approval is not necessary. Daily Progress Note - Critic al Careon 08-23-2022 Daily Progress Note - Critical Care Normal [facility] Daily Progress Note - Critic al Care-CTICUon 08-23-2022 Daily Progress Note - Critical Care-CTICU Normal [facility] Daily Progress Note-Supporti ve Oncologyon 08-23-2022 Daily Progress Note-Supportive Oncology Normal [facility] Daily Progress Note-Vascular Medicineon 08-23-2022 Daily Progress Note-Vascular Medicine Normal [facility] Electrocardiogram 12 Leadon 08-23-2022 Electrocardiogram 12 Lead Normal [facility] GLUCOSE-POCTon 08-23-2022 Glucose [Mass/Vol] 105 mg/dL High 74 - 99 [facility] Comment on above: Performed By: #### G EDI ####[id number] [place] [address] Glucose [Mass/Vol] 110 mg/dL High 74 - 99 [facility] Comment on above: Performed By: #### G EDI ####[id number] [place] [address] Glucose [Mass/Vol] 124 mg/dL High 74 - 99 [facility] Comment on above: Performed By: #### G EDI ####[id number] [place] [address] HEPARIN ASSAY,UFHon 08-24-19 23 HEPARIN ASSAY,UFH 0.3 IU/mL Normal [facility], [place] Comment on above: Result Comment: The therapeutic reference range for UFH may be either 0.3-0.6 IU/mL or 0.3-0.7 IU/mL based on the clinical setting for anticoagulant therapy and the associated nomogram used. For heparin dosing guidelines based on clinical scenario and Heparin Assay results, please refer to local Pharmacy and [facility] [place], [place] Guidelines for Anticoagulation therapy available on the [facility] intranet at:[email or web address]_Guidelines_[email or web address].aspx Performed By: #### H AUF ####[id number] [place] [address] HEPARIN ASSAY,UFH 0.3 IU/mL Normal [facility], [place] Comment on above: Result Comment: The therapeutic reference range for UFH may be either 0.3-0.6 IU/mL or 0.3-0.7 IU/mL based on the clinical setting for anticoagulant therapy and the associated nomogram used. For heparin dosing guidelines based on clinical scenario and Heparin Assay results, please refer to local Pharmacy and [facility] [place] [place] Guidelines for Anticoagulation therapy available on the [facility] intranet at:[email or web address]/[email or web address]/[email or web address]_Guidelines_for_[email or web address].aspx Performed By: #### H AUF ####[id number] [place] [address] HEPARIN ASSAY,UFH 0.2 IU/mL Normal [facility], [place] Comment on above: Result Comment: The therapeutic reference range for UFH may be either 0.3-0.6 IU/mL or 0.3-0.7 IU/mL based on the clinical setting for anticoagulant therapy and the associated nomogram used. For heparin dosing guidelines based on clinical scenario and Heparin Assay results, please refer to local Pharmacy and the [facility] Guidelines for Anticoagulation therapy available on the [facility] intranet at:[email or web address]/Pharmacy/Pages/[facility]_Guidelines_for_Anticoagu.aspx Performed By: #### H AUF ####[id number] [place] [address] Heparin assay, UFHon 07-11-2 023 Heparin unfractionated Chromogenic method Qn (PPP) 0.3 {IU/mL} [facility] Work Phone: Comment on above: The therapeutic refe rence range for UFH may be either 0.3-0.6 IU/mL or 0.3-0.7 IU/mL based on the clinical setting for anticoagulant therapy and the associated nomogram used. For heparin dosing guidelines based on clinical scenario and Heparin Assay results, please refer to local Pharmacy and the [facility] Guidelines for Anticoagulation therapy available on the [facility] intranet at:[email or web address]/[email or web address]/Pages/[facility]_Guidelines_for_Anticoagu.aspx Heparin unfractionated Chromogenic method Qn (PPP) 0.3 {IU/mL} [facility] Work Phone: Comment on above: The therapeutic refe rence range for UFH may be either 0.3-0.6 IU/mL or 0.3-0.7 IU/mL based on the clinical setting for anticoagulant therapy and the associated nomogram used. For heparin dosing guidelines based on clinical scenario and Heparin Assay results, please refer to local Pharmacy and the [facility] Guidelines for Anticoagulation therapy available on the [facility] intranet at:[email or web address]_Guidelines_for_Anticoagu.aspx Heparin unfractionated Chromogenic method Qn (PPP) 0.2 {IU/mL} [facility] Work Phone: Comment on above: The therapeutic refe rence range for UFH may be either 0.3-0.6 IU/mL or 0.3-0.7 IU/mL based on the clinical setting for anticoagulant therapy and the associated nomogram used. For heparin dosing guidelines based on clinical scenario and Heparin Assay results, please refer to local Pharmacy and [facility] [place] [place] Guidelines for Anticoagulation therapy available on the [facility] intranet at:[email or web address]_Guidelines_for_[email or web address] Laboratory - Blood bankon ABO group Nom (Bld) O [facility] Work Phone: Blood group antibody screen Ql Negative [facility] Work Phone: Rh immune globulin screen (Bld) [Interp] Positive [facility] Work Phone: Laboratory - Chemistry and C hemistry - challengeon 08-23-2022 Glucose [Mass/Vol] 97 mg/dL 74 - 99 [facility] Work Phone: Glucose [Mass/Vol] 105 mg/dL above high threshold 74 - 99 [facility] Work Phone: Glucose [Mass/Vol] 110 mg/dL above high threshold 74 - 99 [facility] Work Phone: Glucose [Mass/Vol] 124 mg/dL above high threshold 74 - 99 [facility] Work Phone: Laboratory - Coagulationon 0 08-23-2022 aPTT Coag (PPP) [Time] 44 s above hig h threshold 27 - 38 [facility] Work Phone: Comment on above: Note new reference r dima as of 08/02/2022 at 10:00am. INR Coag (PPP) [Relative time] 1.2 {INR} above high threshold 0.9 - 1.1 [facility] Work Phone: PT Coag (PPP) [Time] 14.0 s above high threshold 9.8 - 12.8 [facility] Work Phone: Comment on above: Note new reference r dima as of 08/02/2022 at 10:00am. Laboratory - Hematology and Cell countson 08-23-2022 Erythrocyte distribution width (RBC) [Ratio] 13.7 % See Below [facility] Work Phone: Comment on above: Reference Range: 11. 5 - 14.5 Hematocrit (Bld) [Volume fraction] 31.0 % below low threshold See Below [facility] Work Phone: Comment on above: Reference Range: 41. 0 - 52.0 Hemoglobin (Bld) [Mass/Vol] 10.0 g/dL below low threshold See Below [facility] Work Phone: Comment on above: Reference Range: 13. 5 - 17.5 MCHC (RBC) [Mass/Vol] 32.3 g/dL See Below [facility] Work Phone: Comment on above: Reference Range: 32. 0 - 36.0 MCV (RBC) [Entitic vol] 97 fL 80 - 100 [facility] Work Phone: Platelets (Bld) [#/Vol] 212 10*3/uL 150 - 450 [facility] Work Phone: RBC (Bld) [#/Vol] 3.19 {x10E12/L} below low threshold See Below [facility] Work Phone: Comment on above: Reference Range: 4.5 0 - 5.90 WBC (Bld) [#/Vol] 8.8 10*3/uL 4.4 - 11.3 [facility] Work Phone: Erythrocyte distribution width (RBC) [Ratio] 13.7 % See Below [facility] Work Phone: Comment on above: Reference Range: 11. 5 - 14.5 Hematocrit (Bld) [Volume fraction] 31.1 % below low threshold See Below [facility] Work Phone: Comment on above: Reference Range: 41. 0 - 52.0 Hemoglobin (Bld) [Mass/Vol] 10.6 g/dL below low threshold See Below [facility] Work Phone: Comment on above: Reference Range: 13. 5 - 17.5 MCHC (RBC) [Mass/Vol] 34.1 g/dL See Below [facility] Work Phone: Comment on above: Reference Range: 32. 0 - 36.0 MCV (RBC) [Entitic vol] 94 fL 80 - 100 [facility] Work Phone: Platelets (Bld) [#/Vol] 235 10*3/uL 150 - 450 [facility] Work Phone: RBC (Bld) [#/Vol] 3.32 {x10E12/L} below low threshold See Below [facility] Work Phone: Comment on above: Reference Range: 4.5 0 - 5.90 WBC (Bld) [#/Vol] 10.6 10*3/uL 4.4 - 11.3 [facility] Work Phone: MAGNESIUMon 08-23-2022 Magnesium [Mass/Vol] 2.00 mg/dL Normal 1.60 - 2.40 [facility] Comment on above: Performed By: #### M G ####[id number] [place] [address] Magnesium, Serumon 3 Magnesium [Mass/Vol] 2.00 mg/dL See Below [facility] Work Phone: Comment on above: Reference Range: 1.6 0 - 2.40 No Panel Informationon 08-23 0.0 {/100_WBC} 0.0-0.0 [facility] Work Phone: [email or web address] – [email or web address]?RetrieveTestByDa teTime?[email or web address]&Date=12-20-2022&Chelsey [email or web address]&Elsa tType=ECG&Site=1&Output Type=PDF&Ext=PDF [facility] Work Phone: Normal sinus rhythm [facility] Work Phone: Borderline Abnormal [facility] Work Phone: [phone] [facility] Work Phone: [phone] [facility] Work Phone: 195 1 [facility] Work Phone: 115 1 [facility] Work Phone: 217 1 [facility] Work Phone: 13 1 [facility] Work Phone: 74 1 [facility] Work Phone: 87 1 [facility] Work Phone: 73 1 [facility] Work Phone: 472 1 [facility] Work Phone: 410 1 [facility] Work Phone: 118 1 [facility] Work Phone: 204 1 [facility] Work Phone: 80 1 [facility] Work Phone: 0.0 {/100_WBC} 0.0-0.0 [facility] Work Phone: OT Evaluation v2-individual therapy - OT student under superon 08-23-2022 OT Evaluation v2-individual therapy - OT student under super Normal [facility] RENAL FUNCTION PANELon 08-23 Albumin [Mass/Vol] 3.5 g/dL Normal 3.4 - 5.0 [facility] Comment on above: Performed By: #### R ENAL ####[id number] [place] [address] Anion gap [Moles/Vol] 13 mmol/L Normal 10 - 20 [facility] Comment on above: Performed By: #### R ENAL ####[id number] [place] [address] Calcium [Mass/Vol] 8.7 mg/dL Normal 8.6 - 10.6 [facility] Comment on above: Performed By: #### R ENAL ####[id number] [place] [address] Chloride [Moles/Vol] 92 mmol/L Low 98 - 107 [facility] Comment on above: Performed By: #### R ENAL ####[id number] [place] [address] Creatinine [Mass/Vol] 1.54 mg/dL High 0.50 - 1.30 [facility] Comment on above: Performed By: #### R ENAL ####[id number] [place] [address] GFR/1.73 sq M.predicted among non-blacks MDRD (S/P/Bld) [Vol rate/Area] 57 mL/min/{1.73_m2} Abnormal >90 [facility] Comment on above: Result Comment: CALC ULATIONS OF ESTIMATED GFR ARE PERFORMED USING THE 2020 CKD-EPI STUDY REFIT EQUATION WITHOUT THE RACE VARIABLE FOR THE IDMS-TRACEABLE CREATININE METHODS.https://jasn.asnjournals.org/content//A SN.2145816000 Performed By: #### R ENAL ####[id number] [place] [address] Glucose [Mass/Vol] 123 mg/dL High 74 - 99 [facility] Comment on above: Performed By: #### R ENAL ####[id number] [place] [address] HCO3 (Bld) [Moles/Vol] 34 mmol/L High 21 - 32 [facility] Comment on above: Performed By: #### R ENAL ####[id number] [place] [address] Phosphate [Mass/Vol] 4.1 mg/dL Normal 2.5 - 4.9 [facility] Comment on above: Result Comment: The performance characteristics of phosphorus testing in heparinized plasma have been validated by the individual laboratory site where testing is performed. Testing on heparinized plasma is not approved by the FDA; however, such approval is not necessary. Performed By: #### R ENAL ####[id number] [place] [address] Potassium [Moles/Vol] 3.7 mmol/L Normal 3.5 - 5.3 [facility] Comment on above: Performed By: #### R ENAL ####[id number] [place] [address] Sodium [Moles/Vol] 135 mmol/L Low 136 - 145 [facility] Comment on above: Performed By: #### R ENAL ####[id number] [place] [address] Urea nitrogen [Mass/Vol] 34 mg/dL High 6 - 23 [facility] Comment on above: Performed By: #### R ENAL ####[id number] [place] [address] Radiologyon 08-23-2022 XR Chest Single view Normal [facility] Work Phone: Renal Function Panelon 08-23 Albumin BCP dye [Mass/Vol] 3.5 g/dL 3.4 - 5.0 [facility] Work Phone: Anion gap [Moles/Vol] 13 mmol/L 10 - 20 [facility] Work Phone: Calcium [Mass/Vol] 8.7 mg/dL 8.6 - 10.6 -[facility] Work Phone: Chloride [Moles/Vol] 92 mmol/L below low threshold 98 - 107 [facility] Work Phone: CO2 [Moles/Vol] 34 mmol/L above high threshold 21 - 32 [facility] Work Phone: Creatinine [Mass/Vol] 1.54 mg/dL above high threshold See Below [facility] Work Phone: Comment on above: Reference Range: 0.5 0 - 1.30 Glucose [Mass/Vol] 123 mg/dL above high threshold 74 - 99 [facility] Work Phone: Phosphate [Mass/Vol] 4.1 mg/dL 2.5 - 4.9 -C [facility] Work Phone: Comment on above: The performance chidi acteristics of phosphorus testing in heparinized plasma have been validated by the individual laboratory site where testing is performed. Testing on heparinized plasma is not approved by the FDA; however, such approval is not necessary. Potassium [Moles/Vol] 3.7 mmol/L 3.5 - 5.3 [facility] Work Phone: Sodium [Moles/Vol] 135 mmol/L below low threshold 136 - 145 [facility] Work Phone: Urea nitrogen [Mass/Vol] 34 mg/dL above high threshold 6 - 23 [facility] Work Phone: Renal Function Panel 57 {mL/min/1.73m2} Abnormal >90 [facility] Work Phone: Comment on above: CALCULATIONS OF ISMA MATED GFR ARE PERFORMED USING THE 2020 CKD-EPI STUDY REFIT EQUATION WITHOUT THE RACE VARIABLE FOR THE IDMS-TRACEABLE CREATININE METHODS.https://jasn.asnjournals.org/content//A SN.1517877589 TH CHEST 1 VIEWon 08-23-2022 TH CHEST 1 VIEW Normal [facility] TYPE + SCREENon 08-23-2022 ABO TYPE O Normal [facility] Comment on above: Performed By: #### T +S ####[id number] [place] [address] RH TYPE Positive Normal [facility] Comment on above: Performed By: #### T +S ####[id number] [place] [address] UA MICROSCOPICon 08-23-2022 Mucus Ql (Urine sed) 1+ /LPF Normal [facility] Comment on above: Performed By: #### U AMIC ####[id number] [place] [address] RBC 4 /HPF Normal 0-5 [facility] Comment on above: Performed By: #### U AMIC ####[id number] [place] [address] SQUAMOUS EPITH. CELLS 2 /HPF Normal [facility] Comment on above: Performed By: #### U AMIC ####[id number] [place] [address] WBC 2 /HPF Normal 0-5 [facility] Comment on above: Performed By: #### U AMIC ####[id number] [place] [address] URINALYSISon 08-23-2022 Appearance (U) CLEAR Normal CLEAR [facility] Comment on above: Performed By: #### U A ####[id number] [place] [address] Bilirubin Ql (U) Negative Normal NEGATIVE [facility] Comment on above: Performed By: #### U A ####[id number] [place] [address] Color (U) RED Normal STRAW,YELLOW [facility] Comment on above: Performed By: #### U A ####[id number] [place] [address] Glucose Ql (U) Negative Normal NEGATIVE [facility] Comment on above: Performed By: #### U A ####[id number] [place] [address] Hemoglobin Ql (U) MODERATE (2+) Abnormal NEGATIVE [facility] Comment on above: Performed By: #### U A ####[id number] [place] [address] Ketones Ql (U) Negative Normal NEGATIVE [facility] Comment on above: Performed By: #### U A ####[id number] [place] [address] Leukocyte esterase Test strip Ql (U) TRACE Abnormal NEGATIVE [facility] Comment on above: Performed By: #### U A ####[id number] [place] [address] Nitrite Ql (U) Negative Normal NEGATIVE [facility] Comment on above: Performed By: #### U A ####[id number] [place] [address] pH (U) 5.0 [pH] Normal 5.0 - 8.0 [facility] Comment on above: Performed By: #### U A ####[id number] [place] [address] Protein Ql (U) 30 (1+) Abnormal NEGATIVE [facility] Comment on above: Performed By: #### U A ####[id number] [place] [address] Specific gravity (U) [Rel density] 1.015 Normal 1.005 - 1.035 [facility] Comment on above: Performed By: #### U A ####[id number] [place] [address] Urobilinogen (U) [Mass/Vol] mg/dL Normal 0.0 - 1.9 [facility] Comment on above: Performed By: #### U A ####[id number] [place] [address] Urinalysison 08-23-2022 Color (U) RED See Below [facility] Work Phone: Comment on above: Reference Range: STR AW,YELLOW Glucose Ql (U) Negative NEGATIVE [facility] Work Phone: Ketones Ql (U) Negative NEGATIVE [facility] Work Phone: Leukocyte esterase Test strip Ql (U) TRACE Abnormal NEGATIVE [facility] Work Phone: pH (U) 5.0 [pH] 5.0 - 8.0 [facility] Work Phone: Protein (U) [Mass/Vol] 30 (1+) Abnormal NEGATIVE [facility] Work Phone: RBC (U) [#/Vol] MODERATE (2+) Abnormal NEGATIVE [facility] Work Phone: Specific gravity (U) [Rel density] 1.015 1 See Below [facility] Work Phone: Comment on above: Reference Range: 1.0 05 - 1.035 Urinalysis Negative NEGATIVE [facility] Work Phone: Urinalysis <2.0 0.0 - 1.9 [facility] Work Phone: Urinalysis CLEAR CLEAR [facility] Work Phone: Urinalysis, Microscopicon Urinalysis, Microscopic 1+ [facility] Work Phone: Urinalysis, Microscopic 2 {/HPF} 0-5 [facility] Work Phone: Urinalysis, Microscopic 4 {/HPF} 0-5 [facility] Work Phone: ARTERIAL FULL PANELon 2022 Anion gap [Moles/Vol] 8 mmol/L Low 10 - 25 [facility] Comment on above: Performed By: #### A FPA4 ####[id number] [place] [address] BASE EXCESS-BLOOD 7.1 mmol/L High -2.0 - 3.0 [facility] [place] Comment on above: Performed By: #### A FPA4 ####[id number] [place] [address] BICARB, CALCULATED 32.5 mmol/L High 22.0 - 26.0 [facility] Comment on above: Performed By: #### A FPA4 ####[id number] [place] [address] CALCIUM,IONIZED 1.15 mmol/L Normal 1.10 - 1.33 [facility] [place] Comment on above: Performed By: #### A FPA4 ####[id number] [place] [address] Chloride [Moles/Vol] 95 mmol/L Low 98 - 107 [facility] Comment on above: Performed By: #### A FPA4 ####[id number] [place] [address] Glucose [Mass/Vol] 94 mg/dL Normal 74 - 99 [facility] Comment on above: Performed By: #### A FPA4 ####[id number] [place] [address] Hematocrit (Bld) [Volume fraction] 33.0 % Low 41.0 - 52.0 [facility] Comment on above: Performed By: #### A FPA4 ####[id number] [place] [address] Hemoglobin (Bld) [Mass/Vol] 11.0 g/dL Low 13.5 - 17.5 [facility] Comment on above: Performed By: #### A FPA4 ####[id number] [place] [address] Lactate [Moles/Vol] 1.0 mmol/L Normal 0.4 - 2.0 [facility] Comment on above: Performed By: #### A FPA4 ####[id number] [place] [address] OXY HGB 95.4 % Normal 94.0 - 98.0 [facility] Comment on above: Performed By: #### A FPA4 ####[id number] [place] [address] Oxygen (Bld) [Partial pressure] 98 mm[Hg] High 85 - 95 [facility] Comment on above: Performed By: #### A FPA4 ####[id number] [place] [address] PATIENT TEMPERATURE 37.0 degrees C Normal [facility] Comment on above: Result Comment: NOTE : PATIENT RESULTS ARE NOT CORRECTED FOR TEMPERATURE. Performed By: #### A FPA4 ####[id number] [place] [address] PCO2 49 mmHg High 38 - 42 [facility] Comment on above: Performed By: #### A FPA4 ####[id number] [place] [address] pH (Bld) 7.43 [pH] High 7.38 - 7.42 [facility] Comment on above: Performed By: #### A FPA4 ####[id number] [place] [address] Potassium [Moles/Vol] 3.8 mmol/L Normal 3.5 - 5.3 [facility] Comment on above: Performed By: #### A FPA4 ####[id number] [place] [address] SO2 97 % Normal 94 - 100 [facility] Comment on above: Performed By: #### A FPA4 ####[id number] [place] [address] Sodium [Moles/Vol] 132 mmol/L Low 136 - 145 [facility] Comment on above: Performed By: #### A FPA4 ####[id number] [place] [address] Anion gap [Moles/Vol] 7 mmol/L Low 10 - 25 [facility] Comment on above: Performed By: #### A FPA4 ####[id number] [place] [address] BASE EXCESS-BLOOD 8.4 mmol/L High -2.0 - 3.0 [facility] [place] Comment on above: Performed By: #### A FPA4 ####[id number] [place] [address] BICARB, CALCULATED 33.9 mmol/L High 22.0 - 26.0 [facility] Comment on above: Performed By: #### A FPA4 ####[id number] [place] [address] CALCIUM,IONIZED 1.20 mmol/L Normal 1.10 - 1.33 [facility], [place] [place] [facility] Comment on above: Performed By: #### A FPA4 ####[id number] [place] [address] Chloride [Moles/Vol] 95 mmol/L Low 98 - 107 [facility] Comment on above: Performed By: #### A FPA4 ####[id number] [place] [address] Glucose [Mass/Vol] 92 mg/dL Normal 74 - 99 [facility] Comment on above: Performed By: #### A FPA4 ####[id number] [place] [address] Hematocrit (Bld) [Volume fraction] 31.0 % Low 41.0 - 52.0 [facility] Comment on above: Performed By: #### A FPA4 ####[id number] [place] [address] Hemoglobin (Bld) [Mass/Vol] 10.2 g/dL Low 13.5 - 17.5 [facility] Comment on above: Performed By: #### A FPA4 ####[id number] [place] [address] Lactate [Moles/Vol] 1.0 mmol/L Normal 0.4 - 2.0 [facility] Comment on above: Performed By: #### A FPA4 ####[id number] [place] [address] OXY HGB 95.8 % Normal 94.0 - 98.0 [facility] Comment on above: Performed By: #### A FPA4 ####[id number] [place] [address] Oxygen (Bld) [Partial pressure] 106 mm[Hg] High 85 - 95 [facility] Comment on above: Performed By: #### A FPA4 ####[id number] [place] [address] PATIENT TEMPERATURE 37.0 degrees C Normal [facility] Comment on above: Result Comment: NOTE : PATIENT RESULTS ARE NOT CORRECTED FOR TEMPERATURE. Performed By: #### A FPA4 ####[id number] [place] [address] PCO2 51 mmHg High 38 - 42 [facility] Comment on above: Performed By: #### A FPA4 ####[id number] [place] [address] pH (Bld) 7.43 [pH] High 7.38 - 7.42 [facility] Comment on above: Performed By: #### A FPA4 ####[id number] [place] [address] Potassium [Moles/Vol] 3.7 mmol/L Normal 3.5 - 5.3 [facility] Comment on above: Performed By: #### A FPA4 ####[id number] [place] [address] SO2 100 % Normal 94 - 100 [facility] Comment on above: Performed By: #### A FPA4 ####[id number] [place] [address] Sodium [Moles/Vol] 132 mmol/L Low 136 - 145 [facility] Comment on above: Performed By: #### A FPA4 ####[id number] [place] [address] CALCIUM, IONIZEDon 3 CALCIUM,IONIZED 1.11 mmol/L Normal 1.10 - 1.33 [facility], [place] [place] [facility] Comment on above: Result Comment: The performance characteristics of ionized calcium tested in heparinized plasma or serum have been validated by the individual laboratory site where testing is performed. Testing on heparinized plasma or serum is not approved by the FDA; however, such approval is not necessary. Performed By: #### I ONC1 ####[id number] [place] [address] CBCon 08-22-2022 Erythrocyte distribution width (RBC) [Ratio] 13.6 % Normal 11.5 - 14.5 [facility] Comment on above: Performed By: #### C BC ####[id number] [place] [address] Hematocrit (Bld) [Volume fraction] 32.0 % Low 41.0 - 52.0 [facility] Comment on above: Performed By: #### C BC ####[id number] [place] [address] Hemoglobin (Bld) [Mass/Vol] 10.8 g/dL Low 13.5 - 17.5 [facility] Comment on above: Performed By: #### C BC ####[id number] [place] [address] MCHC (RBC) [Mass/Vol] 33.8 g/dL Normal 32.0 - 36.0 [facility] Comment on above: Performed By: #### C BC ####[id number] [place] [address] MCV (RBC) [Entitic vol] 93 fL Normal 80 - 100 [facility] Comment on above: Performed By: #### C BC ####[id number] [place] [address] NUCLEATED RBC 0.0 /100 WBC Normal 0.0-0.0 [facility] Comment on above: Performed By: #### C BC ####[id number] [place] [address] Platelets (Bld) [#/Vol] 207 10*3/uL Normal 150 - 450 [facility] Comment on above: Performed By: #### C BC ####[id number] [place] [address] RBC 3.44 x10E12/L Low 4.50 - 5.90 [facility] Comment on above: Performed By: #### C BC ####[id number] [place] [address] WBC (Bld) [#/Vol] 11.1 10*3/uL Normal 4.4 - 11.3 [facility] Comment on above: Performed By: #### C BC ####[id number] [place] [address] Erythrocyte distribution width (RBC) [Ratio] 14.1 % Normal 11.5 - 14.5 [facility] Comment on above: Performed By: #### C BC ####[id number] [place] [address] Hematocrit (Bld) [Volume fraction] 33.7 % Low 41.0 - 52.0 [facility] Comment on above: Performed By: #### C BC ####[id number] [place] [address] Hemoglobin (Bld) [Mass/Vol] 10.2 g/dL Low 13.5 - 17.5 [facility] Comment on above: Performed By: #### C BC ####[id number] [place] [address] MCHC (RBC) [Mass/Vol] 30.3 g/dL Low 32.0 - 36.0 [facility] Comment on above: Performed By: #### C BC ####[id number] [place] [address] MCV (RBC) [Entitic vol] 105 fL High 80 - 100 [facility] Comment on above: Performed By: #### C BC ####[id number] [place] [address] NUCLEATED RBC 0.0 /100 WBC Normal 0.0-0.0 [facility] Comment on above: Performed By: #### C BC ####[id number] [place] [address] Platelets (Bld) [#/Vol] 167 10*3/uL Normal 150 - 450 [facility] Comment on above: Performed By: #### C BC ####[id number] [place] [address] RBC 3.20 x10E12/L Low 4.50 - 5.90 [facility] Comment on above: Performed By: #### C BC ####[id number] [place] [address] WBC (Bld) [#/Vol] 13.1 10*3/uL High 4.4 - 11.3 [facility] Comment on above: Performed By: #### C BC ####[id number] [place] [address] CBC AND DIFFERENTIALon 08-22 % AUTOMATED IMMATURE GRAN 0.5 % Normal 0.0 - 0.9 [facility] Comment on above: Result Comment: Nicki ture Granulocyte Count (IG) includes promyelocytes, myelocytes and metamyelocytes but does not include bands. Percent differential counts (%) should be interpreted in the context of the absolute cell counts (cells/L). Performed By: #### C BCDF ####[id number] [place] [address] Basophils (Bld) [#/Vol] 0.07 10*3/uL Normal 0.00 - 0.10 [facility] Comment on above: Performed By: #### C BCDF ####[id number] [place] [address] Basophils/100 WBC (Bld) 0.6 % Normal 0.0 - 2.0 [facility] Comment on above: Performed By: #### C BCDF ####[id number] [place] [address] Eosinophils (Bld) [#/Vol] 0.33 10*3/uL Normal 0.00 - 0.70 [facility] Comment on above: Performed By: #### C BCDF ####[id number] [place] [address] Eosinophils/100 WBC (Bld) 2.9 % Normal 0.0 - 6.0 [facility] Comment on above: Performed By: #### C BCDF ####[id number] [place] [address] Erythrocyte distribution width (RBC) [Ratio] 13.7 % Normal 11.5 - 14.5 [facility] Comment on above: Performed By: #### C BCDF ####[id number] [place] [address] Hematocrit (Bld) [Volume fraction] 30.8 % Low 41.0 - 52.0 [facility] Comment on above: Performed By: #### C BCDF ####[id number] [place] [address] Hemoglobin (Bld) [Mass/Vol] 10.1 g/dL Low 13.5 - 17.5 [facility] Comment on above: Performed By: #### C BCDF ####[id number] [place] [address] Lymphocytes (Bld) [#/Vol] 1.31 10*3/uL Normal 1.20 - 4.80 [facility] Comment on above: Performed By: #### C BCDF ####[id number] [place] [address] Lymphocytes/100 WBC (Bld) 11.4 % Normal 13.0 - 44.0 [facility] Comment on above: Performed By: #### C BCDF ####[id number] [place] [address] MCHC (RBC) [Mass/Vol] 32.8 g/dL Normal 32.0 - 36.0 [facility] Comment on above: Performed By: #### C BCDF ####[id number] [place] [address] MCV (RBC) [Entitic vol] 94 fL Normal 80 - 100 [facility] Comment on above: Performed By: #### C BCDF ####[id number] [place] [address] Monocytes (Bld) [#/Vol] 0.84 10*3/uL Normal 0.10 - 1.00 [facility] Comment on above: Performed By: #### C BCDF ####[id number] [place] [address] Monocytes/100 WBC (Bld) 7.3 % Normal 2.0 - 10.0 [facility] Comment on above: Performed By: #### C BCDF ####[id number] [place] [address] Neutrophils (Bld) [#/Vol] 8.84 10*3/uL High 1.20 - 7.70 [facility] Comment on above: Performed By: #### C BCDF ####[id number] [place] [address] Neutrophils/100 WBC (Bld) 77.3 % Normal 40.0 - 80.0 [facility] Comment on above: Performed By: #### C BCDF ####[id number] [place] [address] NUCLEATED RBC 0.0 /100 WBC Normal 0.0-0.0 [facility] Comment on above: Performed By: #### C BCDF ####[id number] [place] [address] Platelets (Bld) [#/Vol] 204 10*3/uL Normal 150 - 450 [facility] Comment on above: Performed By: #### C BCDF ####[id number] [place] [address] RBC 3.27 x10E12/L Low 4.50 - 5.90 [facility] Comment on above: Performed By: #### C BCDF ####[id number] [place] [address] WBC (Bld) [#/Vol] 11.5 10*3/uL High 4.4 - 11.3 [facility] Comment on above: Performed By: #### C BCDF ####[id number] [place] [address] COAGULATION SCREENon 023 aPTT Coag (Bld) [Time] 31 s Normal 27 - 38 [facility] Comment on above: Result Comment: Note new reference range as of 08/02/2022 at 10:00am. Performed By: #### C OAGS ####[id number] [place] [address] PT Coag (PPP) [Time] 13.9 s High 9.8 - 12.8 [facility] Comment on above: Result Comment: Note new reference range as of 08/02/2022 at 10:00am. Performed By: #### C OAGS ####[id number] [place] [address] PT, INR 1.2 High 0.9 - 1.1 [facility] Comment on above: Performed By: #### C OAGS ####[id number] [place] [address] Calcium, Ionized Levelon Calcium, Ionized Level 1.11 mmol/L See Below [facility] [employer] Work Phone: Comment on above: Reference Range: 1.1 0 - 1.33 The performance characteristics of ionized calcium tested in heparinized plasma or serum have been validated by the individual laboratory site where testing is performed. Testing on heparinized plasma or serum is not approved by the FDA; however, such approval is not necessary. Complete Blood Count + Diffe rentialon 08-22-2022 Basophils/100 WBC (Bld) 0.6 % 0.0 - 2.0 [employer] Work Phone: Erythrocyte distribution width (RBC) [Ratio] 13.7 % See Below [employer] Work Phone: Comment on above: Reference Range: 11. 5 - 14.5 Hematocrit (Bld) [Volume fraction] 30.8 % below low threshold See Below [employer] Work Phone: Comment on above: Reference Range: 41. 0 - 52.0 Hemoglobin (Bld) [Mass/Vol] 10.1 g/dL below low threshold See Below [employer] Work Phone: Comment on above: Reference Range: 13. 5 - 17.5 Lymphocytes/100 WBC (Bld) 11.4 % See Below [facility] Work Phone: Comment on above: Reference Range: 13. 0 - 44.0 MCHC (RBC) [Mass/Vol] 32.8 g/dL See Below [facility] Work Phone: Comment on above: Reference Range: 32. 0 - 36.0 MCV (RBC) [Entitic vol] 94 fL 80 - 100 [employer] Work Phone: Monocytes/100 WBC (Bld) 7.3 % 2.0 - 10.0 [employer] Work Phone: Neutrophils/100 WBC (Bld) 77.3 % See Below [facility] Work Phone: Comment on above: Reference Range: 40. 0 - 80.0 Platelets (Bld) [#/Vol] 204 10*3/uL 150 - 450 [employer] Work Phone: RBC (Bld) [#/Vol] 3.27 {x10E12/L} below low threshold See Below [employer] Work Phone: Comment on above: Reference Range: 4.5 0 - 5.90 WBC (Bld) [#/Vol] 11.5 10*3/uL above high threshold 4.4 - 11.3 [employer] Work Phone: Complete Blood Count + Differential 0.07 {x10E9/L} See Below [employer] Work Phone: Comment on above: Reference Range: 0.0 0 - 0.10 Complete Blood Count + Differential 0.33 {x10E9/L} See Below [facility] Work Phone: Comment on above: Reference Range: 0.0 0 - 0.70 Complete Blood Count + Differential 0.84 {x10E9/L} See Below [facility] Work Phone: Comment on above: Reference Range: 0.1 0 - 1.00 Complete Blood Count + Differential 1.31 {x10E9/L} See Below [employer] Work Phone: Comment on above: Reference Range: 1.2 0 - 4.80 Complete Blood Count + Differential 8.84 {x10E9/L} above high threshold See Below [facility] Work Phone: Comment on above: Reference Range: 1.2 0 - 7.70 Complete Blood Count + Differential 2.9 % 0.0 - 6.0 [employer] Work Phone: Complete Blood Count + Differential 0.5 % 0.0 - 0.9 [employer] Work Phone: Comment on above: Immature Granulocyte Count (IG) includes promyelocytes, myelocytes and metamyelocytes but does not include bands. Percent differential counts (%) should be interpreted in the context of the absolute cell counts (cells/L). Complete Blood Count + Differential 0.0 {/100_WBC} 0.0-0.0 [employer] Work Phone: Daily Progress Note - Critic al Careon 08-22-2022 Daily Progress Note - Critical Care Normal [facility] Daily Progress Note - Critic al Care-CTICUon 08-22-2022 Daily Progress Note - Critical Care-CTICU Normal [facility] Daily Progress Note-Supporti ve Oncologyon 08-22-2022 Daily Progress Note-Supportive Oncology Normal [facility] Daily Progress Note-Vascular Medicineon 08-22-2022 Daily Progress Note-Vascular Medicine Normal [facility] Electrocardiogram 12 Leadon 08-22-2022 Electrocardiogram 12 Lead Normal [facility] GLUCOSE-POCTon 08-22-2022 Glucose [Mass/Vol] 95 mg/dL Normal 74 - 99 [facility] Comment on above: Performed By: #### G EDI ####[id number] [place] [address] Glucose [Mass/Vol] 106 mg/dL High 74 - 99 [facility] Comment on above: Performed By: #### G EDI ####[id number] [place] [address] Glucose [Mass/Vol] 84 mg/dL Normal 74 - 99 [facility] Comment on above: Performed By: #### G EDI ####[id number] [place] [address] HEPARIN ASSAY,UFHon 08-23-19 HEPARIN ASSAY,UFH 0.2 IU/mL Normal [facility], [place] Comment on above: Result Comment: The therapeutic reference range for UFH may be either 0.3-0.6 IU/mL or 0.3-0.7 IU/mL based on the clinical setting for anticoagulant therapy and the associated nomogram used. For heparin dosing guidelines based on clinical scenario and Heparin Assay results, please refer to local Pharmacy and [facility] [place], [place] Guidelines for Anticoagulation therapy available on the [facility] intranet at:[email or web address]/Pharmacy/Pages/[facility]_Guidelines_for_Anticoagu.aspx Performed By: #### H AUF ####[id number] [place] [address] HEPARIN ASSAY,UFH 0.1 IU/mL Normal [facility], [place] Comment on above: Result Comment: The therapeutic reference range for UFH may be either 0.3-0.6 IU/mL or 0.3-0.7 IU/mL based on the clinical setting for anticoagulant therapy and the associated nomogram used. For heparin dosing guidelines based on clinical scenario and Heparin Assay results, please refer to local Pharmacy and the [facility] Guidelines for Anticoagulation therapy available on the [facility] intranet at:[email or web address] citySqulaselect medical [email or web address]_Guidelines_for_Anticoagu.aspx Performed By: #### H AUF ####[id number] [place] [address] HEPARIN ASSAY,UFH Canceled Normal [facility], [place] [place] [facility] Comment on above: Order Comment: TEST HEPARIN ASSAY,UFH WAS CANCELLED, 08/22/2022 09:23 Result Comment: The therapeutic reference range for UFH may be either 0.3-0.6 IU/mL or 0.3-0.7 IU/mL based on the clinical setting for anticoagulant therapy and the associated nomogram used. For heparin dosing guidelines based on clinical scenario and Heparin Assay results, please refer to local Pharmacy and the [facility] Guidelines for Anticoagulation therapy available on the [facility] intranet at:[email or web address]/Pharmacy/Pages/[facility]_Guidelines_for_Anticoagu.aspx Performed By: #### H AUF ####[id number] [id number] HEPARIN ASSAY,UFH <0.1 Normal [facility], [place] [place] [facility] Comment on above: Result Comment: The therapeutic reference range for UFH may be either 0.3-0.6 IU/mL or 0.3-0.7 IU/mL based on the clinical setting for anticoagulant therapy and the associated nomogram used. For heparin dosing guidelines based on clinical scenario and Heparin Assay results, please refer to local Pharmacy and [facility] [place] [place] Guidelines for Anticoagulation therapy available on the [facility] intranet at:[email or web address]/Pharmacy/Pages/[facility]_Guidelines_for_Anticoagu.aspx Performed By: #### H AUF ####[id number] [id number] HEPARIN ASSAY,UFH <0.1 Normal [facility], [place] [place] [facility] Comment on above: Result Comment: The therapeutic reference range for UFH may be either 0.3-0.6 IU/mL or 0.3-0.7 IU/mL based on the clinical setting for anticoagulant therapy and the associated nomogram used. For heparin dosing guidelines based on clinical scenario and Heparin Assay results, please refer to local Pharmacy and [facility] [place] [place] Guidelines for Anticoagulation therapy available on the [facility] intranet at:[email or web address]_Guidelines_for_Anticoagu.aspx Performed By: #### H AUF ####[id number] [place] [address] HEPARIN ASSAY,UFH Canceled Normal [facility], [place] [place] [facility] Comment on above: Order Comment: TEST HEPARIN ASSAY,UFH WAS CANCELLED, 08/21/2022 22:53 QNS, RESUBMIT. Result Comment: The therapeutic reference range for UFH may be either 0.3-0.6 IU/mL or 0.3-0.7 IU/mL based on the clinical setting for anticoagulant therapy and the associated nomogram used. For heparin dosing guidelines based on clinical scenario and Heparin Assay results, please refer to local Pharmacy and the [facility] Guidelines for Anticoagulation therapy available on the [facility] intranet at:[email or web address]_Guidelines_for_Anticoagu.aspx Performed By: #### H [facility] ####[id number] [place] [address] Heparin assay, UFHon -10-2 023 Heparin unfractionated Chromogenic method Qn (PPP) 0.2 {IU/mL} [employer] Work Phone: Comment on above: The therapeutic refe rence range for UFH may be either 0.3-0.6 IU/mL or 0.3-0.7 IU/mL based on the clinical setting for anticoagulant therapy and the associated nomogram used. For heparin dosing guidelines based on clinical scenario and Heparin Assay results, please refer to local Pharmacy and [facility] [place] [place] Guidelines for Anticoagulation therapy available on the [facility] intranet at:[email or web address]://[employer] Limitedselect medical [facility]/Pharmacy/Pages/[facility]_Guidelines_for_Anticoagu.aspx Heparin unfractionated Chromogenic method Qn (PPP) 0.1 {IU/mL} [employer] Work Phone: Comment on above: The therapeutic refe rence range for UFH may be either 0.3-0.6 IU/mL or 0.3-0.7 IU/mL based on the clinical setting for anticoagulant therapy and the associated nomogram used. For heparin dosing guidelines based on clinical scenario and Heparin Assay results, please refer to local Pharmacy and the [facility] Guidelines for Anticoagulation therapy available on the [facility] intranet at:[email or web address]_Guidelines_for_Anticoagu.aspx Heparin unfractionated Chromogenic method Qn (PPP) <0.1 [facility] Work Phone: Comment on above: The therapeutic refe rence range for UFH may be either 0.3-0.6 IU/mL or 0.3-0.7 IU/mL based on the clinical setting for anticoagulant therapy and the associated nomogram used. For heparin dosing guidelines based on clinical scenario and Heparin Assay results, please refer to local Pharmacy and the [facility] Guidelines for Anticoagulation therapy available on the [facility] intranet at:[email or web address]/Pages/[facility] CenterIndus InsightsPione[facility]_Guidelines_for_Anticoagu.aspx Laboratory - Chemistry and C hemistry - challengeon 08-22-2022 Glucose [Mass/Vol] 95 mg/dL 74 - 99 -[facility] Work Phone: Glucose [Mass/Vol] 106 mg/dL above high threshold 74 - 99 -[facility] Work Phone: Anion gap 4 (BldA) [Moles/Vol] 8 mmol/L below low threshold 10 - 25 -[facility] Work Phone: Base excess Calc (Bld) [Moles/Vol] 7.1 mmol/L above high threshold -2.0 - 3.0 -[facility] Work Phone: Calcium.ionized (BldA) [Moles/Vol] 1.15 mmol/L See Below [facility] Work Phone: Comment on above: Reference Range: 1.1 0 - 1.33 Chloride (BldA) [Moles/Vol] 95 mmol/L below low threshold 98 - 107 [facility] Work Phone: CO2 (Bld) [Partial pressure] 49 mm[Hg] above high threshold 38 - 42 [facility] Work Phone: Glucose [Mass/Vol] 94 mg/dL 74 - 99 -[facility] Work Phone: HCO3 (Bld) [Moles/Vol] 32.5 mmol/L above hig h threshold See Below [facility]ENTERIceot[facility] ArizonaLow[facility] Work Phone: Comment on above: Reference Range: 22. 0 - 26.0 Lactate (BldA) [Moles/Vol] 1.0 mmol/L 0.4 - 2.0 [facility]ENTERFamilyLinkLow[facility] Work Phone: Oxygen (Bld) [Partial pressure] 98 mm[Hg] above high threshold 85 - 95 [facility] Work Phone: Oxyhemoglobin (BldA) [Mass fraction] 95.4 % See Below [facility] Work Phone: Comment on above: Reference Range: 94. 0 - 98.0 pH (Bld) 7.43 [pH] above high threshold See Below [facility] Work Phone: Comment on above: Reference Range: 7.3 8 - 7.42 Potassium (BldA) [Moles/Vol] 3.8 mmol/L 3.5 - 5.3 [facility] Work Phone: Sodium (BldA) [Moles/Vol] 132 mmol/L below low threshold 136 - 145 [facility] Work Phone: Glucose [Mass/Vol] 84 mg/dL 74 - 99 [facility] Work Phone: Anion gap 4 (BldA) [Moles/Vol] 7 mmol/L below low threshold 10 - 25 [facility]ENTER[facility] Work Phone: Base excess Calc (Bld) [Moles/Vol] 8.4 mmol/L above high threshold -2.0 - 3.0 [facility]ENTER[facility] Work Phone: Calcium.ionized (BldA) [Moles/Vol] 1.20 mmol/L See Below [facility] Work Phone: Comment on above: Reference Range: 1.1 0 - 1.33 Chloride (BldA) [Moles/Vol] 95 mmol/L below low threshold 98 - 107 [facility] [employer] Work Phone: CO2 (Bld) [Partial pressure] 51 mm[Hg] above high threshold 38 - 42 [facility] [employer] Work Phone: Glucose [Mass/Vol] 92 mg/dL 74 - 99 [facility] Work Phone: HCO3 (Bld) [Moles/Vol] 33.9 mmol/L above hig h threshold See Below [facility] [employer] Work Phone: Comment on above: Reference Range: 22. 0 - 26.0 Lactate (BldA) [Moles/Vol] 1.0 mmol/L 0.4 - 2.0 [employer] [employer] Work Phone: Oxygen (Bld) [Partial pressure] 106 mm[Hg] above high threshold 85 - 95 [employer] [employer] Work Phone: Oxyhemoglobin (BldA) [Mass fraction] 95.8 % See Below [facility] [employer] Work Phone: Comment on above: Reference Range: 94. 0 - 98.0 pH (Bld) 7.43 [pH] above high threshold See Below [facility] [employer] Work Phone: Comment on above: Reference Range: 7.3 8 - 7.42 Potassium (BldA) [Moles/Vol] 3.7 mmol/L 3.5 - 5.3 [facility] [employer] Work Phone: Sodium (BldA) [Moles/Vol] 132 mmol/L below low threshold 136 - 145 [facility] [employer] Work Phone: Laboratory - Coagulationon 0 08-22-2022 aPTT Coag (PPP) [Time] 31 s 27 - 38 [employer] [employer] Work Phone: Comment on above: Note new reference jose luis ch as of 08/02/2022 at 10:00am. INR Coag (PPP) [Relative time] 1.2 {INR} above high threshold 0.9 - 1.1 [facility] Work Phone: PT Coag (PPP) [Time] 13.9 s above high threshold 9.8 - 12.8 [facility] Work Phone: Comment on above: Note new reference r dima as of 08/02/2022 at 10:00am. Laboratory - Hematology and Cell countson 08-22-2022 Erythrocyte distribution width (RBC) [Ratio] 13.6 % See Below [facility] Work Phone: Comment on above: Reference Range: 11. 5 - 14.5 Hematocrit (Bld) [Volume fraction] 32.0 % below low threshold See Below [facility] Work Phone: Comment on above: Reference Range: 41. 0 - 52.0 Hemoglobin (Bld) [Mass/Vol] 10.8 g/dL below low threshold See Below [facility] Work Phone: Comment on above: Reference Range: 13. 5 - 17.5 MCHC (RBC) [Mass/Vol] 33.8 g/dL See Below [facility] Work Phone: Comment on above: Reference Range: 32. 0 - 36.0 MCV (RBC) [Entitic vol] 93 fL 80 - 100 [facility] Work Phone: Platelets (Bld) [#/Vol] 207 10*3/uL 150 - 450 [facility] Work Phone: RBC (Bld) [#/Vol] 3.44 {x10E12/L} below low threshold See Below [facility] Work Phone: Comment on above: Reference Range: 4.5 0 - 5.90 WBC (Bld) [#/Vol] 11.1 10*3/uL 4.4 - 11.3 [facility] Work Phone: Hematocrit Est (Bld) [Volume fraction] 33.0 % below low threshold See Below [facility] Work Phone: Comment on above: Reference Range: 41. 0 - 52.0 Hemoglobin (Bld) [Mass/Vol] 11.0 g/dL below low threshold See Below [facility] Work Phone: Comment on above: Reference Range: 13. 5 - 17.5 Hematocrit Est (Bld) [Volume fraction] 31.0 % below low threshold See Below [facility] Work Phone: Comment on above: Reference Range: 41. 0 - 52.0 Hemoglobin (Bld) [Mass/Vol] 10.2 g/dL below low threshold See Below [facility] Work Phone: Comment on above: Reference Range: 13. 5 - 17.5 MAGNESIUMon 08-22-2022 Magnesium [Mass/Vol] 1.98 mg/dL Normal 1.60 - 2.40 [facility] Comment on above: Performed By: #### M G ####[id number] [place] [address] Magnesium [Mass/Vol] 2.05 mg/dL Normal 1.60 - 2.40 [facility] Comment on above: Performed By: #### M G ####[id number] [place] [address] Magnesium, Serumon 3 Magnesium [Mass/Vol] 1.98 mg/dL See Below [facility] Work Phone: Comment on above: Reference Range: 1.6 0 - 2.40 Magnesium [Mass/Vol] 2.05 mg/dL See Below [facility] Work Phone: Comment on above: Reference Range: 1.6 0 - 2.40 No Panel Informationon 08-22 0.0 {/100_WBC} 0.0-0.0 [facility] Work Phone: [email or web address]://[facility] – TULSAForticomFAIRVIEW RANGE MEDICAL [facility] B01 :[email or web address]?RetrieveTestByDa teTime?[email or web address]&Date=11-19-2022&Chelsey e=[id number]&Elsa tType=ECG&Site=1&Output Type=PDF&Ext=PDF [facility] Work Phone: Atrial flutter with variable A-V block with frequent ventricular-paced complexes [facility] Work Phone: Abnormal [facility] Work Phone: [phone] [facility] Work Phone: [phone] [facility] Work Phone: 165 1 [facility] Work Phone: 89 1 [facility] Work Phone: 201 1 [facility] Work Phone: 18 1 [facility] Work Phone: 68 1 [facility] Work Phone: 100 1 [facility] Work Phone: 256 1 [facility] Work Phone: [phone] [facility] Work Phone: [phone] [facility] Work Phone: 118 1 [facility] Work Phone: 208 1 [facility] Work Phone: 107 1 [facility] Work Phone: PT Evaluation [id number] onon 08-22-2022 PT Evaluation [id number] Normal [facility] RENAL FUNCTION PANELon 08-22 Albumin [Mass/Vol] 3.5 g/dL Normal 3.4 - 5.0 [facility] Comment on above: Performed By: #### R ENAL ####[id number] [place] [address] Anion gap [Moles/Vol] 13 mmol/L Normal 10 - 20 [facility] Comment on above: Performed By: #### R ENAL ####[id number] [place] [address] Calcium [Mass/Vol] 8.8 mg/dL Normal 8.6 - 10.6 [facility] Comment on above: Performed By: #### R ENAL ####[id number] [place] [address] Chloride [Moles/Vol] 94 mmol/L Low 98 - 107 [facility] Comment on above: Performed By: #### R ENAL ####[id number] [place] [address] Creatinine [Mass/Vol] 1.51 mg/dL High 0.50 - 1.30 [facility] Comment on above: Performed By: #### R ENAL ####[id number] [place] [address] GFR/1.73 sq M.predicted among non-blacks MDRD (S/P/Bld) [Vol rate/Area] 58 mL/min/{1.73_m2} Abnormal >90 [facility] Comment on above: Result Comment: CALC ULATIONS OF ESTIMATED GFR ARE PERFORMED USING THE 2020 CKD-EPI STUDY REFIT EQUATION WITHOUT THE RACE VARIABLE FOR THE IDMS-TRACEABLE CREATININE METHODS.https://jasn.asnjournals.org/content//A SN.8561572041 Performed By: #### R ENAL ####[id number] [place] [address] Glucose [Mass/Vol] 112 mg/dL High 74 - 99 [facility] Comment on above: Performed By: #### R ENAL ####[id number] [place] [address] HCO3 (Bld) [Moles/Vol] 33 mmol/L High 21 - 32 [facility] Comment on above: Performed By: #### R ENAL ####[id number] [place] [address] Phosphate [Mass/Vol] 3.6 mg/dL Normal 2.5 - 4.9 [facility] Comment on above: Result Comment: The performance characteristics of phosphorus testing in heparinized plasma have been validated by the individual laboratory site where testing is performed. Testing on heparinized plasma is not approved by the FDA; however, such approval is not necessary. Performed By: #### R ENAL ####[id number] [place] [address] Potassium [Moles/Vol] 3.9 mmol/L Normal 3.5 - 5.3 [facility] Comment on above: Performed By: #### R ENAL ####[id number] [place] [address] Sodium [Moles/Vol] 136 mmol/L Normal 136 - 145 [facility] Comment on above: Performed By: #### R ENAL ####[id number] [place] [address] Urea nitrogen [Mass/Vol] 34 mg/dL High 6 - 23 [facility] Comment on above: Performed By: #### R ENAL ####[id number] [place] [address] Albumin [Mass/Vol] 3.5 g/dL Normal 3.4 - 5.0 [facility] Comment on above: Performed By: #### R ENAL ####[id number] [place] [address] Anion gap [Moles/Vol] 15 mmol/L Normal 10 - 20 [facility] Comment on above: Performed By: #### R ENAL ####[id number] [place] [address] Calcium [Mass/Vol] 8.9 mg/dL Normal 8.6 - 10.6 [facility] Comment on above: Performed By: #### R ENAL ####[id number] [place] [address] Chloride [Moles/Vol] 94 mmol/L Low 98 - 107 [facility] Comment on above: Performed By: #### R ENAL ####[id number] [place] [address] Creatinine [Mass/Vol] 1.34 mg/dL High 0.50 - 1.30 [facility] Comment on above: Performed By: #### R ENAL ####[id number] [place] [address] GFR/1.73 sq M.predicted among non-blacks MDRD (S/P/Bld) [Vol rate/Area] 67 mL/min/{1.73_m2} Normal >90 [facility] Comment on above: Result Comment: CALC ULATIONS OF ESTIMATED GFR ARE PERFORMED USING THE 2020 CKD-EPI STUDY REFIT EQUATION WITHOUT THE RACE VARIABLE FOR THE IDMS-TRACEABLE CREATININE METHODS.https://jasn.asnjournals.org/content/early//A SN.5514639129 Performed By: #### R ENAL ####[id number] [place] [address] Glucose [Mass/Vol] 85 mg/dL Normal 74 - 99 [facility] Comment on above: Performed By: #### R ENAL ####[id number] [place] [address] HCO3 (Bld) [Moles/Vol] 32 mmol/L Normal 21 - 32 [facility] Comment on above: Performed By: #### R ENAL ####[id number] [place] [address] Phosphate [Mass/Vol] 4.3 mg/dL Normal 2.5 - 4.9 [facility] Comment on above: Result Comment: The performance characteristics of phosphorus testing in heparinized plasma have been validated by the individual laboratory site where testing is performed. Testing on heparinized plasma is not approved by the FDA; however, such approval is not necessary. Performed By: #### R ENAL ####[id number] [place] [address] Potassium [Moles/Vol] 3.8 mmol/L Normal 3.5 - 5.3 [facility] Comment on above: Performed By: #### R ENAL ####[id number] [place] [address] Sodium [Moles/Vol] 137 mmol/L Normal 136 - 145 [facility] Comment on above: Performed By: #### R ENAL ####[id number] [place] [address] Urea nitrogen [Mass/Vol] 32 mg/dL High 6 - 23 [facility] Comment on above: Performed By: #### R ENAL ####[id number] [place] [address] Albumin [Mass/Vol] 3.5 g/dL Normal 3.4 - 5.0 [facility] Comment on above: Performed By: #### R ENAL ####[id number] [place] [address] Anion gap [Moles/Vol] 20 mmol/L Normal 10 - 20 [facility] Comment on above: Performed By: #### R ENAL ####[id number] [place] [address] Calcium [Mass/Vol] 8.8 mg/dL Normal 8.6 - 10.6 [facility] Comment on above: Performed By: #### R ENAL ####[id number] [place] [address] Chloride [Moles/Vol] 93 mmol/L Low 98 - 107 [facility] Comment on above: Performed By: #### R ENAL ####[id number] [place] [address] Creatinine [Mass/Vol] 1.71 mg/dL High 0.50 - 1.30 [facility] Comment on above: Performed By: #### R ENAL ####[id number] [place] [address] GFR/1.73 sq M.predicted among non-blacks MDRD (S/P/Bld) [Vol rate/Area] 50 mL/min/{1.73_m2} Abnormal >90 [facility] Comment on above: Result Comment: CALC ULATIONS OF ESTIMATED GFR ARE PERFORMED USING THE 2020 CKD-EPI STUDY REFIT EQUATION WITHOUT THE RACE VARIABLE FOR THE IDMS-TRACEABLE CREATININE METHODS.https://jasn.asnjournals.org/content//A SN.8765489698 Performed By: #### R ENAL ####[id number] [place] [address] Glucose [Mass/Vol] 87 mg/dL Normal 74 - 99 [facility] Comment on above: Performed By: #### R ENAL ####[id number] [place] [address] HCO3 (Bld) [Moles/Vol] 32 mmol/L Normal 21 - 32 [facility] Comment on above: Performed By: #### R ENAL ####[id number] [place] [address] Phosphate [Mass/Vol] 4.9 mg/dL Normal 2.5 - 4.9 [facility] Comment on above: Result Comment: The performance characteristics of phosphorus testing in heparinized plasma have been validated by the individual laboratory site where testing is performed. Testing on heparinized plasma is not approved by the FDA; however, such approval is not necessary. Performed By: #### R ENAL ####[id number] [place] [address] Potassium [Moles/Vol] 3.8 mmol/L Normal 3.5 - 5.3 [facility] Comment on above: Performed By: #### R ENAL ####[id number] [place] [address] Sodium [Moles/Vol] 141 mmol/L Normal 136 - 145 [facility] Comment on above: Performed By: #### R ENAL ####[id number] [place] [address] Urea nitrogen [Mass/Vol] 35 mg/dL High 6 - 23 [facility] Comment on above: Performed By: #### R ENAL ####[id number] [place] [address] Radiologyon 08-22-2022 XR Chest Single view Normal [facility] Work Phone: Renal Function Panelon 08-22 Albumin BCP dye [Mass/Vol] 3.5 g/dL 3.4 - 5.0 [facility] Work Phone: Anion gap [Moles/Vol] 13 mmol/L 10 - 20 [facility] Work Phone: Calcium [Mass/Vol] 8.8 mg/dL 8.6 - 10.6 -[facility] Work Phone: Chloride [Moles/Vol] 94 mmol/L below low threshold 98 - 107 [facility] Work Phone: CO2 [Moles/Vol] 33 mmol/L above high threshold 21 - 32 [facility] Work Phone: Creatinine [Mass/Vol] 1.51 mg/dL above high threshold See Below [facility] Work Phone: Comment on above: Reference Range: 0.5 0 - 1.30 Glucose [Mass/Vol] 112 mg/dL above high threshold 74 - 99 [facility] Work Phone: Phosphate [Mass/Vol] 3.6 mg/dL 2.5 - 4.9 -[facility] Work Phone: Comment on above: The performance chidi acteristics of phosphorus testing in heparinized plasma have been validated by the individual laboratory site where testing is performed. Testing on heparinized plasma is not approved by the FDA; however, such approval is not necessary. Potassium [Moles/Vol] 3.9 mmol/L 3.5 - 5.3 [facility] Work Phone: Sodium [Moles/Vol] 136 mmol/L 136 - 145 -[facility] Work Phone: Urea nitrogen [Mass/Vol] 34 mg/dL above high threshold 6 - 23 [facility] Work Phone: Renal Function Panel 58 {mL/min/1.73m2} Abnormal >90 [facility] Work Phone: Comment on above: CALCULATIONS OF ISMA MATED GFR ARE PERFORMED USING THE 2020 CKD-EPI STUDY REFIT EQUATION WITHOUT THE RACE VARIABLE FOR THE IDMS-TRACEABLE CREATININE METHODS.https://jasn.asnjournals.org/content//A SN.6793272312 Albumin BCP dye [Mass/Vol] 3.5 g/dL 3.4 - 5.0 [facility] Work Phone: Anion gap [Moles/Vol] 15 mmol/L 10 - 20 [facility] Work Phone: Calcium [Mass/Vol] 8.9 mg/dL 8.6 - 10.6 [facility] Work Phone: Chloride [Moles/Vol] 94 mmol/L below low threshold 98 - 107 [facility] Work Phone: CO2 [Moles/Vol] 32 mmol/L 21 - 32 [facility] Work Phone: Creatinine [Mass/Vol] 1.34 mg/dL above high threshold See Below [facility] Work Phone: Comment on above: Reference Range: 0.5 0 - 1.30 Glucose [Mass/Vol] 85 mg/dL 74 - 99 [facility] Work Phone: Phosphate [Mass/Vol] 4.3 mg/dL 2.5 - 4.9 [facility] Work Phone: Comment on above: The performance chidi acteristics of phosphorus testing in heparinized plasma have been validated by the individual laboratory site where testing is performed. Testing on heparinized plasma is not approved by the FDA; however, such approval is not necessary. Potassium [Moles/Vol] 3.8 mmol/L 3.5 - 5.3 [facility] Work Phone: Sodium [Moles/Vol] 137 mmol/L 136 - 145 [facility] Work Phone: Urea nitrogen [Mass/Vol] 32 mg/dL above high threshold 6 - 23 [facility] Work Phone: Renal Function Panel 67 {mL/min/1.73m2} >90 [facility] Work Phone: Comment on above: CALCULATIONS OF ISMA MATED GFR ARE PERFORMED USING THE 2020 CKD-EPI STUDY REFIT EQUATION WITHOUT THE RACE VARIABLE FOR THE IDMS-TRACEABLE CREATININE METHODS.https://jasn.asnjournals.org/content/early/A SN.6408968733 TH CHEST 1 VIEWon 08-22-2022 TH CHEST 1 VIEW Normal [facility] ARTERIAL FULL PANELon 2022 Anion gap [Moles/Vol] 6 mmol/L Low 10 - 25 [facility] Comment on above: Performed By: #### A FPA4 ####[id number] [place] [address] BASE EXCESS-BLOOD 8.4 mmol/L High -2.0 - 3.0 [facility] [place] Comment on above: Performed By: #### A FPA4 ####[id number] [place] [address] BICARB, CALCULATED 33.4 mmol/L High 22.0 - 26.0 [facility] Comment on above: Performed By: #### A FPA4 ####[id number] [place] [address] CALCIUM,IONIZED 1.14 mmol/L Normal 1.10 - 1.33 [facility] [place] Comment on above: Performed By: #### A FPA4 ####[id number] [place] [address] Chloride [Moles/Vol] 98 mmol/L Normal 98 - 107 [facility] Comment on above: Performed By: #### A FPA4 ####[id number] [place] [address] Glucose [Mass/Vol] 105 mg/dL High 74 - 99 [facility] Comment on above: Performed By: #### A FPA4 ####[id number] [place] [address] Hematocrit (Bld) [Volume fraction] 37.0 % Low 41.0 - 52.0 [facility] Comment on above: Performed By: #### A FPA4 ####[id number] [place] [address] Hemoglobin (Bld) [Mass/Vol] 12.2 g/dL Low 13.5 - 17.5 [facility] Comment on above: Performed By: #### A FPA4 ####[id number] [place] [address] Lactate [Moles/Vol] 1.0 mmol/L Normal 0.4 - 2.0 [facility] Comment on above: Performed By: #### A FPA4 ####[id number] [place] [address] OXY HGB 94.7 % Normal 94.0 - 98.0 [facility] Comment on above: Performed By: #### A FPA4 ####[id number] [place] [address] Oxygen (Bld) [Partial pressure] 79 mm[Hg] Low 85 - 95 [facility] Comment on above: Performed By: #### A FPA4 ####[id number] [place] [address] PATIENT TEMPERATURE 37.0 degrees C Normal [facility] Comment on above: Result Comment: NOTE : PATIENT RESULTS ARE NOT CORRECTED FOR TEMPERATURE. Performed By: #### A FPA4 ####[id number] [place] [address] PCO2 47 mmHg High 38 - 42 [facility] Comment on above: Performed By: #### A FPA4 ####[id number] [place] [address] pH (Bld) 7.46 [pH] High 7.38 - 7.42 [facility] Comment on above: Performed By: #### A FPA4 ####[id number] [place] [address] Potassium [Moles/Vol] 3.5 mmol/L Normal 3.5 - 5.3 [facility] Comment on above: Performed By: #### A FPA4 ####[id number] [place] [address] SO2 97 % Normal 94 - 100 [facility] Comment on above: Performed By: #### A FPA4 ####[id number] [place] [address] Sodium [Moles/Vol] 134 mmol/L Low 136 - 145 [facility] Comment on above: Performed By: #### A FPA4 ####[id number] [place] [address] Anion gap [Moles/Vol] 4 mmol/L Low 10 - 25 [facility] Comment on above: Performed By: #### A FPA4 ####[id number] [place] [address] BASE EXCESS-BLOOD 8.3 mmol/L High -2.0 - 3.0 [facility] [place] Comment on above: Performed By: #### A FPA4 ####[id number] [place] [address] BICARB, CALCULATED 33.4 mmol/L High 22.0 - 26.0 [facility] Comment on above: Performed By: #### A FPA4 ####[id number] [place] [address] CALCIUM,IONIZED 1.09 mmol/L Low 1.10 - 1.33 [facility] [place] Comment on above: Performed By: #### A FPA4 ####[id number] [place] [address] Chloride [Moles/Vol] 103 mmol/L Normal 98 - 107 [facility] Comment on above: Performed By: #### A FPA4 ####[id number] [place] [address] Glucose [Mass/Vol] 80 mg/dL Normal 74 - 99 [facility] Comment on above: Performed By: #### A FPA4 ####[id number] [place] [address] Hematocrit (Bld) [Volume fraction] 30.0 % Low 41.0 - 52.0 [facility] Comment on above: Performed By: #### A FPA4 ####[id number] [place] [address] Hemoglobin (Bld) [Mass/Vol] 9.9 g/dL Low 13.5 - 17.5 [facility] Comment on above: Performed By: #### A FPA4 ####[id number] [place] [address] Lactate [Moles/Vol] 0.7 mmol/L Normal 0.4 - 2.0 [facility] Comment on above: Performed By: #### A FPA4 ####[id number] [place] [address] OXY HGB 94.9 % Normal 94.0 - 98.0 [facility] Comment on above: Performed By: #### A FPA4 ####[id number] [place] [address] Oxygen (Bld) [Partial pressure] 81 mm[Hg] Low 85 - 95 [facility] Comment on above: Performed By: #### A FPA4 ####[id number] [place] [address] PATIENT TEMPERATURE 37.0 degrees C Normal [facility] Comment on above: Result Comment: NOTE : PATIENT RESULTS ARE NOT CORRECTED FOR TEMPERATURE. Performed By: #### A FPA4 ####[id number] [place] [address] PCO2 48 mmHg High 38 - 42 [facility] Comment on above: Performed By: #### A FPA4 ####[id number] [place] [address] pH (Bld) 7.45 [pH] High 7.38 - 7.42 [facility] Comment on above: Performed By: #### A FPA4 ####[id number] [place] [address] Potassium [Moles/Vol] 3.6 mmol/L Normal 3.5 - 5.3 [facility] Comment on above: Performed By: #### A FPA4 ####[id number] [place] [address] SO2 97 % Normal 94 - 100 [facility] Comment on above: Performed By: #### A FPA4 ####[id number] [place] [address] Sodium [Moles/Vol] 137 mmol/L Normal 136 - 145 [facility] Comment on above: Performed By: #### A FPA4 ####[id number] [place] [address] Anion gap [Moles/Vol] 6 mmol/L Low 10 - 25 [facility] Comment on above: Performed By: #### A FPA4 ####[id number] [place] [address] BASE EXCESS-BLOOD 5.2 mmol/L High -2.0 - 3.0 [facility] [place] Comment on above: Performed By: #### A FPA4 ####[id number] [place] [address] BICARB, CALCULATED 29.9 mmol/L High 22.0 - 26.0 [facility] Comment on above: Performed By: #### A FPA4 ####[id number] [place] [address] CALCIUM,IONIZED 1.08 mmol/L Low 1.10 - 1.33 [facility] [place] Comment on above: Performed By: #### A FPA4 ####[id number] [place] [address] Chloride [Moles/Vol] 103 mmol/L Normal 98 - 107 [facility] Comment on above: Performed By: #### A FPA4 ####[id number] [place] [address] Glucose [Mass/Vol] 129 mg/dL High 74 - 99 [facility] Comment on above: Performed By: #### A FPA4 ####[id number] [place] [address] Hematocrit (Bld) [Volume fraction] 25.0 % Low 41.0 - 52.0 [facility] Comment on above: Performed By: #### A FPA4 ####[id number] [place] [address] Hemoglobin (Bld) [Mass/Vol] 8.3 g/dL Low 13.5 - 17.5 [facility] Comment on above: Performed By: #### A FPA4 ####[id number] [place] [address] Lactate [Moles/Vol] 0.8 mmol/L Normal 0.4 - 2.0 [facility] Comment on above: Performed By: #### A FPA4 ####[id number] [place] [address] OXY HGB 97.2 % Normal 94.0 - 98.0 [facility] Comment on above: Performed By: #### A FPA4 ####[id number] [place] [address] Oxygen (Bld) [Partial pressure] 145 mm[Hg] High 85 - 95 [facility] Comment on above: Performed By: #### A FPA4 ####[id number] [place] [address] PATIENT TEMPERATURE 37.0 degrees C Normal [facility] Comment on above: Result Comment: NOTE : PATIENT RESULTS ARE NOT CORRECTED FOR TEMPERATURE. Performed By: #### A FPA4 ####[id number] [place] [address] PCO2 44 mmHg High 38 - 42 [facility] Comment on above: Performed By: #### A FPA4 ####[id number] [place] [address] pH (Bld) 7.44 [pH] High 7.38 - 7.42 [facility] Comment on above: Performed By: #### A FPA4 ####[id number] [place] [address] Potassium [Moles/Vol] 3.2 mmol/L Low 3.5 - 5.3 [facility] Comment on above: Performed By: #### A FPA4 ####[id number] [place] [address] SO2 99 % Normal 94 - 100 [facility] Comment on above: Performed By: #### A FPA4 ####[id number] [place] [address] Sodium [Moles/Vol] 136 mmol/L Normal 136 - 145 [facility] Comment on above: Performed By: #### A FPA4 ####[id number] [place] [address] BASIC METABOLIC PANELon 07-0 Anion gap [Moles/Vol] 16 mmol/L Normal 10 - 20 [facility] Comment on above: Performed By: #### B MP ####[id number] [place] [address] Calcium [Mass/Vol] 9.0 mg/dL Normal 8.6 - 10.6 [facility] Comment on above: Performed By: #### B MP ####[id number] [place] [address] Chloride [Moles/Vol] 94 mmol/L Low 98 - 107 [facility] Comment on above: Performed By: #### B MP ####[id number] [place] [address] Creatinine [Mass/Vol] 1.53 mg/dL High 0.50 - 1.30 [facility] Comment on above: Performed By: #### B MP ####[id number] [place] [address] GFR/1.73 sq M.predicted among non-blacks MDRD (S/P/Bld) [Vol rate/Area] 57 mL/min/{1.73_m2} Abnormal >90 [facility] Comment on above: Result Comment: CALC ULATIONS OF ESTIMATED GFR ARE PERFORMED USING THE 2020 CKD-EPI STUDY REFIT EQUATION WITHOUT THE RACE VARIABLE FOR THE IDMS-TRACEABLE CREATININE METHODS.https://jasn.asnjournals.org/content//A SN.[email or web address] Performed By: #### B MP ####[id number] [place] [address] Glucose [Mass/Vol] 103 mg/dL High 74 - 99 [facility] Comment on above: Performed By: #### B MP ####[id number] [place] [address] HCO3 (Bld) [Moles/Vol] 32 mmol/L Normal 21 - 32 [facility] Comment on above: Performed By: #### B MP ####[id number] [place] [address] Potassium [Moles/Vol] 3.8 mmol/L Normal 3.5 - 5.3 [facility] Comment on above: Performed By: #### B MP ####[id number] [place] [address] Sodium [Moles/Vol] 138 mmol/L Normal 136 - 145 [facility] Comment on above: Performed By: #### B MP ####[id number] [place] [address] Urea nitrogen [Mass/Vol] 33 mg/dL High 6 - 23 [facility] Comment on above: Performed By: #### B MP ####[id number] [place] [address] CALCIUM, IONIZEDon 3 CALCIUM,IONIZED 1.11 mmol/L Normal 1.10 - 1.33 [facility], [place] Comment on above: Result Comment: The performance characteristics of ionized calcium tested in heparinized plasma or serum have been validated by the individual laboratory site where testing is performed. Testing on heparinized plasma or serum is not approved by the FDA; however, such approval is not necessary. Performed By: #### I ONC1 ####[id number] [place] [address] CALCIUM,IONIZED 1.12 mmol/L Normal 1.10 - 1.33 [facility] [place] Comment on above: Result Comment: The performance characteristics of ionized calcium tested in heparinized plasma or serum have been validated by the individual laboratory site where testing is performed. Testing on heparinized plasma or serum is not approved by the FDA; however, such approval is not necessary. Performed By: #### I ONC1 ####[id number] [place] [address] CBCon 08-21-2022 Erythrocyte distribution width (RBC) [Ratio] 13.6 % Normal 11.5 - 14.5 [facility] Comment on above: Performed By: #### C BC ####[id number] [place] [address] Hematocrit (Bld) [Volume fraction] 30.1 % Low 41.0 - 52.0 [facility] Comment on above: Performed By: #### C BC ####[id number] [place] [address] Hemoglobin (Bld) [Mass/Vol] 10.0 g/dL Low 13.5 - 17.5 [facility] Comment on above: Performed By: #### C BC ####[id number] [place] [address] MCHC (RBC) [Mass/Vol] 33.2 g/dL Normal 32.0 - 36.0 [facility] Comment on above: Performed By: #### C BC ####[id number] [place] [address] MCV (RBC) [Entitic vol] 95 fL Normal 80 - 100 [facility] Comment on above: Performed By: #### C BC ####[id number] [place] [address] NUCLEATED RBC 0.0 /100 WBC Normal 0.0-0.0 [facility] Comment on above: Performed By: #### C BC ####[id number] [place] [address] Platelets (Bld) [#/Vol] 167 10*3/uL Normal 150 - 450 [facility] Comment on above: Performed By: #### C BC ####[id number] [place] [address] RBC 3.18 x10E12/L Low 4.50 - 5.90 [facility] Comment on above: Performed By: #### C BC ####[id number] [place] [address] WBC (Bld) [#/Vol] 12.3 10*3/uL High 4.4 - 11.3 [facility] Comment on above: Performed By: #### C BC ####[id number] [place] [address] CBC AND DIFFERENTIALon 08-21 % AUTOMATED IMMATURE GRAN 0.5 % Normal 0.0 - 0.9 [facility] Comment on above: Result Comment: Nicki ture Granulocyte Count (IG) includes promyelocytes, myelocytes and metamyelocytes but does not include bands. Percent differential counts (%) should be interpreted in the context of the absolute cell counts (cells/L). Performed By: #### C BCDF ####[id number] [place] [address] Basophils (Bld) [#/Vol] 0.06 10*3/uL Normal 0.00 - 0.10 [facility] Comment on above: Performed By: #### C BCDF ####[id number] [place] [address] Basophils/100 WBC (Bld) 0.5 % Normal 0.0 - 2.0 [facility] Comment on above: Performed By: #### C BCDF ####[id number] [place] [address] Eosinophils (Bld) [#/Vol] 0.33 10*3/uL Normal 0.00 - 0.70 [facility] Comment on above: Performed By: #### C BCDF ####[id number] [place] [address] Eosinophils/100 WBC (Bld) 2.5 % Normal 0.0 - 6.0 [facility] Comment on above: Performed By: #### C BCDF ####[id number] [place] [address] Erythrocyte distribution width (RBC) [Ratio] 13.8 % Normal 11.5 - 14.5 [facility] Comment on above: Performed By: #### C BCDF ####[id number] [place] [address] Hematocrit (Bld) [Volume fraction] 30.9 % Low 41.0 - 52.0 [facility] Comment on above: Performed By: #### C BCDF ####[id number] [place] [address] Hemoglobin (Bld) [Mass/Vol] 10.1 g/dL Low 13.5 - 17.5 [facility] Comment on above: Performed By: #### C BCDF ####[id number] [place] [address] Lymphocytes (Bld) [#/Vol] 1.10 10*3/uL Low 1.20 - 4.80 [facility] Comment on above: Performed By: #### C BCDF ####[id number] [place] [address] Lymphocytes/100 WBC (Bld) 8.3 % Normal 13.0 - 44.0 [facility] Comment on above: Performed By: #### C BCDF ####[id number] [place] [address] MCHC (RBC) [Mass/Vol] 32.7 g/dL Normal 32.0 - 36.0 [facility] Comment on above: Performed By: #### C BCDF ####[id number] [place] [address] MCV (RBC) [Entitic vol] 95 fL Normal 80 - 100 [facility] Comment on above: Performed By: #### C BCDF ####[id number] [place] [address] Monocytes (Bld) [#/Vol] 0.66 10*3/uL Normal 0.10 - 1.00 [facility] Comment on above: Performed By: #### C BCDF ####[id number] [place] [address] Monocytes/100 WBC (Bld) 5.0 % Normal 2.0 - 10.0 [facility] Comment on above: Performed By: #### C BCDF ####[id number] [place] [address] Neutrophils (Bld) [#/Vol] 10.98 10*3/uL High 1.20 - 7.70 [facility] Comment on above: Performed By: #### C BCDF ####[id number] [place] [address] Neutrophils/100 WBC (Bld) 83.2 % Normal 40.0 - 80.0 [facility] Comment on above: Performed By: #### C BCDF ####[id number] [place] [address] NUCLEATED RBC 0.0 /100 WBC Normal 0.0-0.0 [facility] Comment on above: Performed By: #### C BCDF ####[id number] [place] [address] Platelets (Bld) [#/Vol] 165 10*3/uL Normal 150 - 450 [facility] Comment on above: Performed By: #### C BCDF ####[id number] [place] [address] RBC 3.25 x10E12/L Low 4.50 - 5.90 [facility] Comment on above: Performed By: #### C BCDF ####[id number] [place] [address] WBC (Bld) [#/Vol] 13.2 10*3/uL High 4.4 - 11.3 [facility] Comment on above: Performed By: #### C BCDF ####[id number] [place] [address] COAGULATION SCREENon 023 aPTT Coag (Bld) [Time] 29 s Normal 27 - 38 [facility] Comment on above: Result Comment: Note new reference range as of 08/02/2022 at 10:00am. Performed By: #### C OAGS ####[id number] [place] [address] PT Coag (PPP) [Time] 14.6 s High 9.8 - 12.8 [facility] Comment on above: Result Comment: Note new reference range as of 08/02/2022 at 10:00am. Performed By: #### C OAGS ####[id number] [place] [address] PT, INR 1.3 High 0.9 - 1.1 [facility] Comment on above: Performed By: #### C OAGS ####[id number] [place] [address] aPTT Coag (Bld) [Time] 29 s Normal 27 - 38 [facility] Comment on above: Result Comment: Note new reference range as of 08/02/2022 at 10:00am. Performed By: #### C OAGS ####[id number] [place] [address] PT Coag (PPP) [Time] 15.0 s High 9.8 - 12.8 [facility] Comment on above: Result Comment: Note new reference range as of 08/02/2022 at 10:00am. Performed By: #### C OAGS ####[id number] [place] [address] PT, INR 1.3 High 0.9 - 1.1 [facility] Comment on above: Performed By: #### C OAGS ####[id number] [place] [address] Calcium, Ionized Levelon Calcium, Ionized Level 1.11 mmol/L See Below [facility] [employer] Work Phone: Comment on above: Reference Range: 1.1 0 - 1.33 The performance characteristics of ionized calcium tested in heparinized plasma or serum have been validated by the individual laboratory site where testing is performed. Testing on heparinized plasma or serum is not approved by the FDA; however, such approval is not necessary. Calcium, Ionized Level 1.12 mmol/L See Below [facility] Work Phone: Comment on above: Reference Range: 1.1 0 - 1.33 The performance characteristics of ionized calcium tested in heparinized plasma or serum have been validated by the individual laboratory site where testing is performed. Testing on heparinized plasma or serum is not approved by the FDA; however, such approval is not necessary. Complete Blood Count + William cantu 08-21-2022 Basophils/100 WBC (Bld) 0.5 % 0.0 - 2.0 [facility] Work Phone: Erythrocyte distribution width (RBC) [Ratio] 13.8 % See Below [facility] Work Phone: Comment on above: Reference Range: 11. 5 - 14.5 Hematocrit (Bld) [Volume fraction] 30.9 % below low threshold See Below [facility] Work Phone: Comment on above: Reference Range: 41. 0 - 52.0 Hemoglobin (Bld) [Mass/Vol] 10.1 g/dL below low threshold See Below [facility] Work Phone: Comment on above: Reference Range: 13. 5 - 17.5 Lymphocytes/100 WBC (Bld) 8.3 % See Below [facility] Work Phone: Comment on above: Reference Range: 13. 0 - 44.0 MCHC (RBC) [Mass/Vol] 32.7 g/dL See Below [facility] Work Phone: Comment on above: Reference Range: 32. 0 - 36.0 MCV (RBC) [Entitic vol] 95 fL 80 - 100 [facility] Work Phone: Monocytes/100 WBC (Bld) 5.0 % 2.0 - 10.0 [facility] Work Phone: Neutrophils/100 WBC (Bld) 83.2 % See Below [facility] Work Phone: Comment on above: Reference Range: 40. 0 - 80.0 Platelets (Bld) [#/Vol] 165 10*3/uL 150 - 450 [facility] Work Phone: RBC (Bld) [#/Vol] 3.25 {x10E12/L} below low threshold See Below [facility] Work Phone: Comment on above: Reference Range: 4.5 0 - 5.90 WBC (Bld) [#/Vol] 13.2 10*3/uL above high threshold 4.4 - 11.3 [facility] Work Phone: Complete Blood Count + Differential 0.06 {x10E9/L} See Below [employer] Work Phone: Comment on above: Reference Range: 0.0 0 - 0.10 Complete Blood Count + Differential 0.33 {x10E9/L} See Below [employer] Work Phone: Comment on above: Reference Range: 0.0 0 - 0.70 Complete Blood Count + Differential 0.66 {x10E9/L} See Below [employer] Work Phone: Comment on above: Reference Range: 0.1 0 - 1.00 Complete Blood Count + Differential 1.10 {x10E9/L} below low threshold See Below [employer] Work Phone: Comment on above: Reference Range: 1.2 0 - 4.80 Complete Blood Count + Differential 10.98 {x10E9/L} above high threshold See Below [facility] Work Phone: Comment on above: Reference Range: 1.2 0 - 7.70 Complete Blood Count + Differential 2.5 % 0.0 - 6.0 [employer] Work Phone: Complete Blood Count + Differential 0.5 % 0.0 - 0.9 [employer] Work Phone: Comment on above: Immature Granulocyte Count (IG) includes promyelocytes, myelocytes and metamyelocytes but does not include bands. Percent differential counts (%) should be interpreted in the context of the absolute cell counts (cells/L). Complete Blood Count + Differential 0.0 {/100_WBC} 0.0-0.0 [facility] [employer] Work Phone: Consult-Vascular Medicineon 08-21-2022 Consult-Vascular Medicine Normal [facility] Daily Progress Note - Critic al Careon 08-21-2022 Daily Progress Note - Critical Care Normal [facility] Daily Progress Note - Critic al Care-CTICUon 08-21-2022 Daily Progress Note - Critical Care-CTICU Normal [facility] Electrocardiogram 12 Leadon 08-21-2022 Electrocardiogram 12 Lead Normal [facility] GLUCOSE-POCTon 08-21-2022 Glucose [Mass/Vol] 75 mg/dL Normal 74 - 99 [facility] Comment on above: Performed By: #### G EDI ####[id number] [place] [address] Glucose [Mass/Vol] 134 mg/dL High 74 - 99 [facility] Comment on above: Performed By: #### G EDI ####[id number] [place] [address] Glucose [Mass/Vol] 130 mg/dL High 74 - 99 [facility] Comment on above: Performed By: #### G EDI ####[id number] [place] [address] HEPARIN ASSAY,UFHon 08-22-19 23 HEPARIN ASSAY,UFH <0.1 Normal [facility], [place] Comment on above: Result Comment: The therapeutic reference range for UFH may be either 0.3-0.6 IU/mL or 0.3-0.7 IU/mL based on the clinical setting for anticoagulant therapy and the associated nomogram used. For heparin dosing guidelines based on clinical scenario and Heparin Assay results, please refer to local Pharmacy and the [facility] Guidelines for Anticoagulation therapy available on the [facility] intranet at:[email or web address] Performed By: #### H AUF ####[id number] [place] [address] HEPARIN ASSAY,UFH <0.1 Normal [facility] [place] Comment on above: Result Comment: The therapeutic reference range for UFH may be either 0.3-0.6 IU/mL or 0.3-0.7 IU/mL based on the clinical setting for anticoagulant therapy and the associated nomogram used. For heparin dosing guidelines based on clinical scenario and Heparin Assay results, please refer to local Pharmacy and the [facility] Guidelines for Anticoagulation therapy available on the [facility] intranet at:[email or web address] Performed By: #### H AUF ####[id number] [id number] HEPARIN ASSAY,UFH <0.1 Normal [facility] [place] Comment on above: Result Comment: The therapeutic reference range for UFH may be either 0.3-0.6 IU/mL or 0.3-0.7 IU/mL based on the clinical setting for anticoagulant therapy and the associated nomogram used. For heparin dosing guidelines based on clinical scenario and Heparin Assay results, please refer to local Pharmacy and [facility] [place], [place] Guidelines for Anticoagulation therapy available on the [facility] intranet at:[email or web address]_Guidelines_[email or web address] Performed By: #### H AUF ####[id number] [place] [address] HEPARIN ASSAY,UFH Canceled Normal [facility] [place] Comment on above: Order Comment: TEST HEPARIN ASSAY,UFH WAS CANCELLED, 08/21/2022 04:28 SPECIMEN UNSUITABLEFOR TESTING. RECEIVED IN LAB >1 HR FROM COLLECTION.. Result Comment: The therapeutic reference range for UFH may be either 0.3-0.6 IU/mL or 0.3-0.7 IU/mL based on the clinical setting for anticoagulant therapy and the associated nomogram used. For heparin dosing guidelines based on clinical scenario and Heparin Assay results, please refer to local Pharmacy and the [facility] Guidelines for Anticoagulation therapy available on the [facility] intranet at:[email or web address]_[email or web address] Performed By: #### H AUF ####[id number] [place] [address] HEPARIN ASSAY,UFH <0.1 Normal [facility] [place] Comment on above: Result Comment: The therapeutic reference range for UFH may be either 0.3-0.6 IU/mL or 0.3-0.7 IU/mL based on the clinical setting for anticoagulant therapy and the associated nomogram used. For heparin dosing guidelines based on clinical scenario and Heparin Assay results, please refer to local Pharmacy and the [facility] Guidelines for Anticoagulation therapy available on the [facility] intranet at:[email or web address]_Guidelines_[email or web address] Performed By: #### H AUF ####[id number] [place] [address] Heparin assay, UFHon 023 Heparin unfractionated Chromogenic method Qn (PPP) <0.1 [facility] Work Phone: Comment on above: The therapeutic refe rence range for UFH may be either 0.3-0.6 IU/mL or 0.3-0.7 IU/mL based on the clinical setting for anticoagulant therapy and the associated nomogram used. For heparin dosing guidelines based on clinical scenario and Heparin Assay results, please refer to local Pharmacy and [facility] [place] [place] Guidelines for Anticoagulation therapy available on the [facility] intranet at:[email or web address]_Guidelines_[email or web address] Heparin unfractionated Chromogenic method Qn (PPP) Canceled [facility] Work Phone: Comment on above: The therapeutic refe rence range for UFH may be either 0.3-0.6 IU/mL or 0.3-0.7 IU/mL based on the clinical setting for anticoagulant therapy and the associated nomogram used. For heparin dosing guidelines based on clinical scenario and Heparin Assay results, please refer to local Pharmacy and the [facility] Guidelines for Anticoagulation therapy available on the [facility] intranet at:[email or web address]_Guidelines_[email or web address] Heparin unfractionated Chromogenic method Qn (PPP) <0.1 [facility] Work Phone: Comment on above: The therapeutic refe rence range for UFH may be either 0.3-0.6 IU/mL or 0.3-0.7 IU/mL based on the clinical setting for anticoagulant therapy and the associated nomogram used. For heparin dosing guidelines based on clinical scenario and Heparin Assay results, please refer to local Pharmacy and [facility] [place] [place] Guidelines for Anticoagulation therapy available on the [facility] intranet at:[email or web address]_Guidelines_for_[email or web address].aspx Heparin unfractionated Chromogenic method Qn (PPP) <0.1 [facility] Work Phone: Comment on above: The therapeutic refe rence range for UFH may be either 0.3-0.6 IU/mL or 0.3-0.7 IU/mL based on the clinical setting for anticoagulant therapy and the associated nomogram used. For heparin dosing guidelines based on clinical scenario and Heparin Assay results, please refer to local Pharmacy and [facility] [place] [place] Guidelines for Anticoagulation therapy available on the [facility] intranet at:[email or web address]_Guidelines_[email or web address] Heparin unfractionated Chromogenic method Qn (PPP) <0.1 [facility] Work Phone: Comment on above: The therapeutic refe rence range for UFH may be either 0.3-0.6 IU/mL or 0.3-0.7 IU/mL based on the clinical setting for anticoagulant therapy and the associated nomogram used. For heparin dosing guidelines based on clinical scenario and Heparin Assay results, please refer to local Pharmacy and [facility] [place] [place] Guidelines for Anticoagulation therapy available on the [facility] intranet at:[email or web address]_Guidelines_for_Anticoagu.aspx Heparin unfractionated Chromogenic method Qn (PPP) Canceled [facility] Work Phone: Comment on above: The therapeutic refe rence range for UFH may be either 0.3-0.6 IU/mL or 0.3-0.7 IU/mL based on the clinical setting for anticoagulant therapy and the associated nomogram used. For heparin dosing guidelines based on clinical scenario and Heparin Assay results, please refer to local Pharmacy and the [facility] Guidelines for Anticoagulation therapy available on the [facility] intranet at:[email or web address]_Guidelines_[email or web address] Laboratory - Chemistry and C hemistry - challengeon 08-21-2022 Anion gap [Moles/Vol] 16 mmol/L 10 - 20 [facility] Work Phone: Calcium [Mass/Vol] 9.0 mg/dL 8.6 - 10.6 [facility] Work Phone: Chloride [Moles/Vol] 94 mmol/L below low threshold 98 - 107 [facility] Work Phone: CO2 [Moles/Vol] 32 mmol/L 21 - 32 [facility] Work Phone: Creatinine [Mass/Vol] 1.53 mg/dL above high threshold See Below [facility] Work Phone: Comment on above: Reference Range: 0.5 0 - 1.30 Glucose [Mass/Vol] 103 mg/dL above high threshold 74 - 99 [facility] Work Phone: Potassium [Moles/Vol] 3.8 mmol/L 3.5 - 5.3 [facility] Work Phone: Sodium [Moles/Vol] 138 mmol/L 136 - 145 [facility] Work Phone: Urea nitrogen [Mass/Vol] 33 mg/dL above high threshold 6 - 23 [facility] Work Phone: Anion gap 4 (BldA) [Moles/Vol] 6 mmol/L below low threshold 10 - 25 [facility] Communications Work Phone: Base excess Calc (Bld) [Moles/Vol] 8.4 mmol/L above high threshold -2.0 - 3.0 [employer] Work Phone: Calcium.ionized (BldA) [Moles/Vol] 1.14 mmol/L See Below [employer] Work Phone: Comment on above: Reference Range: 1.1 0 - 1.33 Chloride (BldA) [Moles/Vol] 98 mmol/L 98 - 107 [employer] Work Phone: CO2 (Bld) [Partial pressure] 47 mm[Hg] above high threshold 38 - 42 [employer] Work Phone: Glucose [Mass/Vol] 105 mg/dL above high threshold 74 - 99 [employer] Work Phone: HCO3 (Bld) [Moles/Vol] 33.4 mmol/L above hig h threshold See Below [employer] Work Phone: Comment on above: Reference Range: 22. 0 - 26.0 Lactate (BldA) [Moles/Vol] 1.0 mmol/L 0.4 - 2.0 [employer] Work Phone: Oxygen (Bld) [Partial pressure] 79 mm[Hg] below low threshold 85 - 95 [employer] Work Phone: Oxyhemoglobin (BldA) [Mass fraction] 94.7 % See Below [employer] Work Phone: Comment on above: Reference Range: 94. 0 - 98.0 pH (Bld) 7.46 [pH] above high threshold See Below [employer] Work Phone: Comment on above: Reference Range: 7.3 8 - 7.42 Potassium (BldA) [Moles/Vol] 3.5 mmol/L 3.5 - 5.3 [employer] Work Phone: Sodium (BldA) [Moles/Vol] 134 mmol/L below low threshold 136 - 145 [facility] [employer] Work Phone: Glucose [Mass/Vol] 75 mg/dL 74 - 99 [employer] Work Phone: Anion gap 4 (BldA) [Moles/Vol] 4 mmol/L below low threshold 10 - 25 [employer] Work Phone: Base excess Calc (Bld) [Moles/Vol] 8.3 mmol/L above high threshold -2.0 - 3.0 [employer] Work Phone: Calcium.ionized (BldA) [Moles/Vol] 1.09 mmol/L below low threshold See Below [employer] Work Phone: Comment on above: Reference Range: 1.1 0 - 1.33 Chloride (BldA) [Moles/Vol] 103 mmol/L 98 - 107 [employer] Work Phone: CO2 (Bld) [Partial pressure] 48 mm[Hg] above high threshold 38 - 42 [employer] Work Phone: Glucose [Mass/Vol] 80 mg/dL 74 - 99 [employer] Work Phone: HCO3 (Bld) [Moles/Vol] 33.4 mmol/L above hig h threshold See Below [employer] Work Phone: Comment on above: Reference Range: 22. 0 - 26.0 Lactate (BldA) [Moles/Vol] 0.7 mmol/L 0.4 - 2.0 [employer] Work Phone: Oxygen (Bld) [Partial pressure] 81 mm[Hg] below low threshold 85 - 95 [employer] Work Phone: Oxyhemoglobin (BldA) [Mass fraction] 94.9 % See Below [employer] Work Phone: Comment on above: Reference Range: 94. 0 - 98.0 pH (Bld) 7.45 [pH] above high threshold See Below [facility] Work Phone: Comment on above: Reference Range: 7.3 8 - 7.42 Potassium (BldA) [Moles/Vol] 3.6 mmol/L 3.5 - 5.3 -[facility] Work Phone: Sodium (BldA) [Moles/Vol] 137 mmol/L 136 - 145 [facility] Work Phone: Anion gap 4 (BldMV) [Moles/Vol] 6 mmol/L below low threshold 10 - 25 [facility] Work Phone: Base excess Calc (BldMV) [Moles/Vol] 3.9 mmol/L [facility] Work Phone: Calcium.ionized (BldMV) [Moles/Vol] 1.05 mmol/L below low threshold See Below [facility] Work Phone: Comment on above: Reference Range: 1.1 0 - 1.33 Chloride [Moles/Vol] 102 mmol/L 98 - 107 -[facility] Work Phone: CO2 (BldMV) [Partial pressure] 51 {mmHg} [facility] Work Phone: Glucose [Mass/Vol] 123 mg/dL above high threshold 74 - 99 [facility] Work Phone: HCO3 (BldMV) [Moles/Vol] 30.2 mmol/L -[facility] Work Phone: Lactate (BldMV) [Moles/Vol] 0.8 mmol/L 0.4 - 2.0 [facility] Work Phone: Oxygen (BldMV) [Partial pressure] 47 {mmHg} -[facility] Work Phone: Oxyhemoglobin (BldMV) [Mass fraction] 70.3 % See Below [employer] Work Phone: Comment on above: Reference Range: 45. 0 - 75.0 pH (BldMV) 7.38 1 [employer] Work Phone: Potassium (BldMV) [Moles/Vol] 3.0 mmol/L below low threshold 3.5 - 5.3 [employer] Work Phone: Sodium (BldMV) [Moles/Vol] 135 mmol/L below low threshold 136 - 145 [employer] Work Phone: Anion gap 4 (BldA) [Moles/Vol] 6 mmol/L below low threshold 10 - 25 [employer] Work Phone: Base excess Calc (Bld) [Moles/Vol] 5.2 mmol/L above high threshold -2.0 - 3.0 [employer] Work Phone: Calcium.ionized (BldA) [Moles/Vol] 1.08 mmol/L below low threshold See Below [employer] Work Phone: Comment on above: Reference Range: 1.1 0 - 1.33 Chloride (BldA) [Moles/Vol] 103 mmol/L 98 - 107 [employer] Work Phone: CO2 (Bld) [Partial pressure] 44 mm[Hg] above high threshold 38 - 42 [employer] Work Phone: Glucose [Mass/Vol] 129 mg/dL above high threshold 74 - 99 [employer] Work Phone: HCO3 (Bld) [Moles/Vol] 29.9 mmol/L above hig h threshold See Below [employer] Work Phone: Comment on above: Reference Range: 22. 0 - 26.0 Lactate (BldA) [Moles/Vol] 0.8 mmol/L 0.4 - 2.0 [employer] Work Phone: Oxygen (Bld) [Partial pressure] 145 mm[Hg] above high threshold 85 - 95 [employer] Work Phone: Oxyhemoglobin (BldA) [Mass fraction] 97.2 % See Below [employer] Work Phone: Comment on above: Reference Range: 94. 0 - 98.0 pH (Bld) 7.44 [pH] above high threshold See Below [employer] Work Phone: Comment on above: Reference Range: 7.3 8 - 7.42 Potassium (BldA) [Moles/Vol] 3.2 mmol/L below low threshold 3.5 - 5.3 [employer] Work Phone: Sodium (BldA) [Moles/Vol] 136 mmol/L 136 - 145 [employer] Work Phone: Glucose [Mass/Vol] 134 mg/dL above high threshold 74 - 99 [employer] Work Phone: Laboratory - Coagulationon 0 - aPTT Coag (PPP) [Time] 29 s 27 - 38 [employer] Work Phone: Comment on above: Note new reference r dima as of 08/02/2022 at 10:00am. INR Coag (PPP) [Relative time] 1.3 {INR} above high threshold 0.9 - 1.1 [employer] Work Phone: PT Coag (PPP) [Time] 14.6 s above high threshold 9.8 - 12.8 [employer] Work Phone: Comment on above: Note new reference r dima as of 08/02/2022 at 10:00am. aPTT Coag (PPP) [Time] 29 s 27 - 38 [employer] [employer] Work Phone: Comment on above: Note new reference r dima as of 08/02/2022 at 10:00am. INR Coag (PPP) [Relative time] 1.3 {INR} above high threshold 0.9 - 1.1 [facility] Work Phone: PT Coag (PPP) [Time] 15.0 s above high threshold 9.8 - 12.8 [employer] Work Phone: Comment on above: Note new reference r dima as of 08/02/2022 at 10:00am. Laboratory - Hematology and Cell countson 08-21-2022 Erythrocyte distribution width (RBC) [Ratio] 14.1 % See Below [facility] Work Phone: Comment on above: Reference Range: 11. 5 - 14.5 Hematocrit (Bld) [Volume fraction] 33.7 % below low threshold See Below [facility] Work Phone: Comment on above: Reference Range: 41. 0 - 52.0 Hemoglobin (Bld) [Mass/Vol] 10.2 g/dL below low threshold See Below [facility] [employer] Work Phone: Comment on above: Reference Range: 13. 5 - 17.5 MCHC (RBC) [Mass/Vol] 30.3 g/dL below low threshold See Below [facility] [employer] Work Phone: Comment on above: Reference Range: 32. 0 - 36.0 MCV (RBC) [Entitic vol] 105 fL above high threshold 80 - 100 [facility] [employer] Work Phone: Platelets (Bld) [#/Vol] 167 10*3/uL 150 - 450 [employer] Work Phone: RBC (Bld) [#/Vol] 3.20 {x10E12/L} below low threshold See Below [facility] Work Phone: Comment on above: Reference Range: 4.5 0 - 5.90 WBC (Bld) [#/Vol] 13.1 10*3/uL above high threshold 4.4 - 11.3 [employer] Work Phone: Hematocrit Est (Bld) [Volume fraction] 37.0 % below low threshold See Below [facility] Work Phone: Comment on above: Reference Range: 41. 0 - 52.0 Hemoglobin (Bld) [Mass/Vol] 12.2 g/dL below low threshold See Below [facility] Work Phone: Comment on above: Reference Range: 13. 5 - 17.5 Erythrocyte distribution width (RBC) [Ratio] 13.6 % See Below [facility] Work Phone: Comment on above: Reference Range: 11. 5 - 14.5 Hematocrit (Bld) [Volume fraction] 30.1 % below low threshold See Below [facility] Work Phone: Comment on above: Reference Range: 41. 0 - 52.0 Hemoglobin (Bld) [Mass/Vol] 10.0 g/dL below low threshold See Below [facility] Work Phone: Comment on above: Reference Range: 13. 5 - 17.5 MCHC (RBC) [Mass/Vol] 33.2 g/dL See Below [facility] Work Phone: Comment on above: Reference Range: 32. 0 - 36.0 MCV (RBC) [Entitic vol] 95 fL 80 - 100 [facility] [facility] Work Phone: Platelets (Bld) [#/Vol] 167 10*3/uL 150 - 450 [employer] Work Phone: RBC (Bld) [#/Vol] 3.18 {x10E12/L} below low threshold See Below [facility] Work Phone: Comment on above: Reference Range: 4.5 0 - 5.90 WBC (Bld) [#/Vol] 12.3 10*3/uL above high threshold 4.4 - 11.3 [facility] Work Phone: Hematocrit Est (Bld) [Volume fraction] 30.0 % below low threshold See Below [facility] Work Phone: Comment on above: Reference Range: 41. 0 - 52.0 Hemoglobin (Bld) [Mass/Vol] 9.9 g/dL below low threshold See Below [facility] Work Phone: Comment on above: Reference Range: 13. 5 - 17.5 Hematocrit Est (Bld) [Volume fraction] 43.0 % See Below [facility] Work Phone: Comment on above: Reference Range: 41. 0 - 52.0 Hemoglobin (Bld) [Mass/Vol] 14.4 g/dL See Below [facility] Work Phone: Comment on above: Reference Range: 13. 5 - 17.5 Hematocrit Est (Bld) [Volume fraction] 25.0 % below low threshold See Below [facility] [employer] Work Phone: Comment on above: Reference Range: 41. 0 - 52.0 Hemoglobin (Bld) [Mass/Vol] 8.3 g/dL below low threshold See Below [employer] Work Phone: Comment on above: Reference Range: 13. 5 - 17.5 MAGNESIUMon 08-21-2022 Magnesium [Mass/Vol] 2.40 mg/dL Normal 1.60 - 2.40 [facility] Comment on above: Performed By: #### M G ####[id number] [place] [address] Magnesium [Mass/Vol] 2.52 mg/dL High 1.60 - 2.40 [facility] Comment on above: Performed By: #### M G ####[id number] [place] [address] MV FULL PANELon 08-21-2022 Anion gap [Moles/Vol] 6 mmol/L Low 10 - 25 [facility] Comment on above: Performed By: #### M VPA4 ####[id number] [place] [address] BASE EXCESS-BLOOD 3.9 mmol/L Normal [facility] [place] Comment on above: Performed By: #### M VPA4 ####[id number] [place] [address] BICARB, CALCULATED 30.2 mmol/L Normal [facility] Comment on above: Performed By: #### M VPA4 ####[id number] [place] [address] CALCIUM,IONIZED 1.05 mmol/L Low 1.10 - 1.33 [facility] [place] Comment on above: Performed By: #### M VPA4 ####[id number] [place] [address] Chloride [Moles/Vol] 102 mmol/L Normal 98 - 107 [facility] Comment on above: Performed By: #### M VPA4 ####[id number] [place] [address] Glucose [Mass/Vol] 123 mg/dL High 74 - 99 [facility] Comment on above: Performed By: #### M VPA4 ####[id number] [place] [address] Hematocrit (Bld) [Volume fraction] 43.0 % Normal 41.0 - 52.0 [facility] Comment on above: Performed By: #### M VPA4 ####[id number] [place] [address] Hemoglobin (Bld) [Mass/Vol] 14.4 g/dL Normal 13.5 - 17.5 [facility] Comment on above: Performed By: #### M VPA4 ####[id number] [place] [address] Lactate [Moles/Vol] 0.8 mmol/L Normal 0.4 - 2.0 [facility] Comment on above: Performed By: #### M VPA4 ####[id number] [place] [address] OXY HGB 70.3 % Normal 45.0 - 75.0 [facility] Comment on above: Performed By: #### M VPA4 ####[id number] [place] [address] Oxygen (Bld) [Partial pressure] 47 mm[Hg] Normal [facility] Comment on above: Performed By: #### M VPA4 ####[id number] [place] [address] PATIENT TEMPERATURE 37.0 degrees Normal [facility] Comment on above: Result Comment: NOTE : PATIENT RESULTS ARE NOT CORRECTED FOR TEMPERATURE. Performed By: #### M VPA4 ####[id number] [place] [address] PCO2 51 mmHg Normal [facility] Comment on above: Performed By: #### M VPA4 ####[id number] [place] [address] pH (Bld) 7.38 [pH] Normal [facility] Comment on above: Performed By: #### M VPA4 ####[id number] [place] [address] Potassium [Moles/Vol] 3.0 mmol/L Low 3.5 - 5.3 [facility] Comment on above: Performed By: #### M VPA4 ####[id number] [place] [address] SO2 72 % Normal [facility] Comment on above: Performed By: #### M VPA4 ####[id number] [place] [address] Sodium [Moles/Vol] 135 mmol/L Low 136 - 145 [facility] Comment on above: Performed By: #### M VPA4 ####[id number] [place] [address] Magnesium, Serumon 3 Magnesium [Mass/Vol] 2.40 mg/dL See Below [facility] Work Phone: Comment on above: Reference Range: 1.6 0 - 2.40 Magnesium [Mass/Vol] 2.52 mg/dL above high threshold See Below [facility] Work Phone: Comment on above: Reference Range: 1.6 0 - 2.40 No Panel Informationon 08-21 0.0 {/100_WBC} 0.0-0.0 [facility] Work Phone: [email or web address]&Date=10-20-2022&Chelsey e=[email or web address]&Elsa tType=ECG&Site=1&Output Type=PDF&Ext=PDF [facility] Work Phone: Atrial flutter with variable A-V block [facility] Work Phone: [phone] Abnormal [facility] Work Phone: [phone] [facility] Work Phone: [phone] [facility] Work Phone: [phone] 1 [facility] Work Phone: [phone] 1 [facility] Work Phone: [phone] [facility] Work Phone: [phone] [facility] Work Phone: [phone] 265 1 [facility] Work Phone: [phone] 481 1 [facility] Work Phone: [phone] 1 [facility] Work Phone: [phone] 108 1 [facility] Work Phone: [phone] 214 1 [facility] Work Phone: [phone] 122 1 [facility] Work Phone: [phone] 57 {mL/min/1.73m2} Abnormal >90 [facility] Work Phone: Comment on above: CALCULATIONS OF ISMA MATED GFR ARE PERFORMED USING THE 2020 CKD-EPI STUDY REFIT EQUATION WITHOUT THE RACE VARIABLE FOR THE IDMS-TRACEABLE CREATININE METHODS.https://jasn.asnjournals.org/content/early//A SN.5477531772 0.0 {/100_WBC} 0.0-0.0 [facility] Work Phone: 72 % [facility] Work Phone: 37.0 {degrees} [facility] Work Phone: Comment on above: NOTE: PATIENT RESULT S ARE NOT CORRECTED FOR TEMPERATURE. RENAL FUNCTION PANELon 08-21 Albumin [Mass/Vol] 3.6 g/dL Normal 3.4 - 5.0 [facility] Comment on above: Performed By: #### R ENAL ####[id number] [place] [address] Anion gap [Moles/Vol] 14 mmol/L Normal 10 - 20 [facility] Comment on above: Performed By: #### R ENAL ####[id number] [place] [address] Calcium [Mass/Vol] 8.7 mg/dL Normal 8.6 - 10.6 [facility] Comment on above: Performed By: #### R ENAL ####[id number] [place] [address] Chloride [Moles/Vol] 97 mmol/L Low 98 - 107 [facility] Comment on above: Performed By: #### R ENAL ####[id number] [place] [address] Creatinine [Mass/Vol] 1.62 mg/dL High 0.50 - 1.30 [facility] Comment on above: Performed By: #### R ENAL ####[id number] [place] [address] GFR/1.73 sq M.predicted among non-blacks MDRD (S/P/Bld) [Vol rate/Area] 54 mL/min/{1.73_m2} Abnormal >90 [facility] Comment on above: Result Comment: CALC ULATIONS OF ESTIMATED GFR ARE PERFORMED USING THE 2020 CKD-EPI STUDY REFIT EQUATION WITHOUT THE RACE VARIABLE FOR THE IDMS-TRACEABLE CREATININE METHODS.https://jasn.asnjournals.org/content//A SN.3480908016 Performed By: #### R ENAL ####[id number] [place] [address] Glucose [Mass/Vol] 79 mg/dL Normal 74 - 99 [facility] Comment on above: Performed By: #### R ENAL ####[id number] [place] [address] HCO3 (Bld) [Moles/Vol] 34 mmol/L High 21 - 32 [facility] Comment on above: Performed By: #### R ENAL ####[id number] [place] [address] Phosphate [Mass/Vol] 4.8 mg/dL Normal 2.5 - 4.9 [facility] Comment on above: Result Comment: The performance characteristics of phosphorus testing in heparinized plasma have been validated by the individual laboratory site where testing is performed. Testing on heparinized plasma is not approved by the FDA; however, such approval is not necessary. Performed By: #### R ENAL ####[id number] [place] [address] Potassium [Moles/Vol] 3.9 mmol/L Normal 3.5 - 5.3 [facility] Comment on above: Performed By: #### R ENAL ####[id number] [place] [address] Sodium [Moles/Vol] 141 mmol/L Normal 136 - 145 [facility] Comment on above: Performed By: #### R ENAL ####[id number] [place] [address] Urea nitrogen [Mass/Vol] 34 mg/dL High 6 - 23 [facility] Comment on above: Performed By: #### R ENAL ####[id number] [place] [address] Albumin [Mass/Vol] 3.6 g/dL Normal 3.4 - 5.0 [facility] Comment on above: Performed By: #### R ENAL ####[id number] [place] [address] Anion gap [Moles/Vol] 15 mmol/L Normal 10 - 20 [facility] Comment on above: Performed By: #### R ENAL ####[id number] [place] [address] Calcium [Mass/Vol] 8.9 mg/dL Normal 8.6 - 10.6 [facility] Comment on above: Performed By: #### R ENAL ####[id number] [place] [address] Chloride [Moles/Vol] 96 mmol/L Low 98 - 107 [facility] Comment on above: Performed By: #### R ENAL ####[id number] [place] [address] Creatinine [Mass/Vol] 1.52 mg/dL High 0.50 - 1.30 [facility] Comment on above: Performed By: #### R ENAL ####[id number] [place] [address] GFR/1.73 sq M.predicted among non-blacks MDRD (S/P/Bld) [Vol rate/Area] 58 mL/min/{1.73_m2} Abnormal >90 [facility] Comment on above: Result Comment: CALC ULATIONS OF ESTIMATED GFR ARE PERFORMED USING THE 2020 CKD-EPI STUDY REFIT EQUATION WITHOUT THE RACE VARIABLE FOR THE IDMS-TRACEABLE CREATININE METHODS.https://jasn.asnjournals.org/content/early/A SN.2791287176 Performed By: #### R ENAL ####[id number] [place] [address] Glucose [Mass/Vol] 141 mg/dL High 74 - 99 [facility] Comment on above: Performed By: #### R ENAL ####[id number] [place] [address] HCO3 (Bld) [Moles/Vol] 33 mmol/L High 21 - 32 [facility] Comment on above: Performed By: #### R ENAL ####[id number] [place] [address] Phosphate [Mass/Vol] 4.1 mg/dL Normal 2.5 - 4.9 [facility] Comment on above: Result Comment: The performance characteristics of phosphorus testing in heparinized plasma have been validated by the individual laboratory site where testing is performed. Testing on heparinized plasma is not approved by the FDA; however, such approval is not necessary. Performed By: #### R ENAL ####[id number] [place] [address] Potassium [Moles/Vol] 4.0 mmol/L Normal 3.5 - 5.3 [facility] Comment on above: Performed By: #### R ENAL ####[id number] [place] [address] Sodium [Moles/Vol] 140 mmol/L Normal 136 - 145 [facility] Comment on above: Performed By: #### R ENAL ####[id number] [place] [address] Urea nitrogen [Mass/Vol] 34 mg/dL High 6 - 23 [facility] Comment on above: Performed By: #### R ENAL ####[id number] [place] [address] Radiologyon 08-21-2022 XR Chest Single view Normal [facility] Work Phone: Renal Function Panelon 08-21 Albumin BCP dye [Mass/Vol] 3.5 g/dL 3.4 - 5.0 [facility] Work Phone: Anion gap [Moles/Vol] 20 mmol/L 10 - 20 [facility] Work Phone: Calcium [Mass/Vol] 8.8 mg/dL 8.6 - 10.6 [facility] Work Phone: Chloride [Moles/Vol] 93 mmol/L below low threshold 98 - 107 [facility] Work Phone: CO2 [Moles/Vol] 32 mmol/L 21 - 32 -Cardio logy [facility] Work Phone: Creatinine [Mass/Vol] 1.71 mg/dL above high threshold See Below [facility] Work [facility]: Comment on above: Reference Range: 0.5 0 - 1.30 Glucose [Mass/Vol] 87 mg/dL 74 - 99 -[facility] Work Phone: Phosphate [Mass/Vol] 4.9 mg/dL 2.5 - 4.9 - [facility] Work Phone: Comment on above: The performance chidi acteristics of phosphorus testing in heparinized plasma have been validated by the individual laboratory site where testing is performed. Testing on heparinized plasma is not approved by the FDA; however, such approval is not necessary. Potassium [Moles/Vol] 3.8 mmol/L 3.5 - 5.3 [facility] Work Phone: Sodium [Moles/Vol] 141 mmol/L 136 - 145 [facility] [employer] [facility] Work Phone: Urea nitrogen [Mass/Vol] 35 mg/dL above high threshold 6 - 23 [facility] Work Phone: Renal Function Panel 50 {mL/min/1.73m2} Abnormal >90 [facility] Work Phone: Comment on above: CALCULATIONS OF ISMA MATED GFR ARE PERFORMED USING THE 2020 CKD-EPI STUDY REFIT EQUATION WITHOUT THE RACE VARIABLE FOR THE IDMS-TRACEABLE CREATININE METHODS.https://jasn.asnjournals.org/content/early//A SN.7937244283 Albumin BCP dye [Mass/Vol] 3.6 g/dL 3.4 - 5.0 [facility] Work Phone: Anion gap [Moles/Vol] 14 mmol/L 10 - 20 [facility] Work Phone: Calcium [Mass/Vol] 8.7 mg/dL 8.6 - 10.6 -Car [employer] Work Phone: Chloride [Moles/Vol] 97 mmol/L below low threshold 98 - 107 -[facility] Work Phone: CO2 [Moles/Vol] 34 mmol/L above high threshold 21 - 32 [facility] Work Phone: Creatinine [Mass/Vol] 1.62 mg/dL above high threshold See Below [facility] Work Phone: Comment on above: Reference Range: 0.5 0 - 1.30 Glucose [Mass/Vol] 79 mg/dL 74 - 99 -Car [employer] [facility] Work Phone: Phosphate [Mass/Vol] 4.8 mg/dL 2.5 - 4.9 [facility] Work Phone: Comment on above: The performance chidi acteristics of phosphorus testing in heparinized plasma have been validated by the individual laboratory site where testing is performed. Testing on heparinized plasma is not approved by the FDA; however, such approval is not necessary. Potassium [Moles/Vol] 3.9 mmol/L 3.5 - 5.3 [facility] Work Phone: Sodium [Moles/Vol] 141 mmol/L 136 - 145 [employer] Work Phone: Urea nitrogen [Mass/Vol] 34 mg/dL above high threshold 6 - 23 [facility] Work Phone: Renal Function Panel 54 {mL/min/1.73m2} Abnormal >90 [facility] [employer] Work Phone: Comment on above: CALCULATIONS OF ISMA MATED GFR ARE PERFORMED USING THE 2020 CKD-EPI STUDY REFIT EQUATION WITHOUT THE RACE VARIABLE FOR THE IDMS-TRACEABLE CREATININE METHODS.https://jasn.asnjournals.org/content//A SN.2737584990 Albumin BCP dye [Mass/Vol] 3.6 g/dL 3.4 - 5.0 -[facility] Work Phone: Anion gap [Moles/Vol] 15 mmol/L 10 - 20 - [facility] Work Phone: Calcium [Mass/Vol] 8.9 mg/dL 8.6 - 10.6 -[facility] Work Phone: Chloride [Moles/Vol] 96 mmol/L below low threshold 98 - 107 -[facility] Work Phone: CO2 [Moles/Vol] 33 mmol/L above high threshold 21 - 32 [facility] [facility] Work Phone: Creatinine [Mass/Vol] 1.52 mg/dL above high threshold See Below [facility] Work Phone: Comment on above: Reference Range: 0.5 0 - 1.30 Glucose [Mass/Vol] 141 mg/dL above high threshold 74 - 99 [facility] Work Phone: Phosphate [Mass/Vol] 4.1 mg/dL 2.5 - 4.9 -[facility] Work Phone: Comment on above: The performance chidi acteristics of phosphorus testing in heparinized plasma have been validated by the individual laboratory site where testing is performed. Testing on heparinized plasma is not approved by the FDA; however, such approval is not necessary. Potassium [Moles/Vol] 4.0 mmol/L 3.5 - 5.3 - [facility] Work Phone: Sodium [Moles/Vol] 140 mmol/L 136 - 145 [facility] Work Phone: Urea nitrogen [Mass/Vol] 34 mg/dL above high threshold 6 - 23 -[facility] -[place] Work Phone: Renal Function Panel 58 {mL/min/1.73m2} Abnormal >90 [facility] [employer] Work Phone: Comment on above: CALCULATIONS OF ISMA MATED GFR ARE PERFORMED USING THE 2020 CKD-EPI STUDY REFIT EQUATION WITHOUT THE RACE VARIABLE FOR THE IDMS-TRACEABLE CREATININE METHODS.https://jasn.asnjournals.org/content/early//A SN.6347983894 TH CHEST 1 VIEWon 08-21-2022 TH CHEST 1 VIEW Normal [facility] VANCOMYCINon 08-21-2022 VANCOMYCIN Canceled Normal [facility] Comment on above: Order Comment: TEST VANCOMYCIN WAS CANCELLED, 08/21/2022 04:23 NO SPECIMEN RECEIVED IN LAB. Result Comment: .The rapeutic Ranges: Peak: All ages: 30.0-40.0 ug/mL. Trough: Age <18y: 5.0-10.0 ug/mL. Age >/= 18y: 5.0-20.0 ug/mL. Vancomycin trough concentrations drawn immediately prior to the next dose at steady-state are preferred for monitoring patients treated with vancomycin. Ref.: Am J Health-Syst Pharm 66: 83-98, 2008. Performed By: #### V ANCU ####[id number] [place] [address] APTTon 08-20-2022 aPTT Coag (Bld) [Time] 27 s Normal 27 - 38 [facility] Comment on above: Result Comment: Note new reference range as of 08/02/2022 at 10:00am. Performed By: #### A PTT ####[id number] [place] [address] ARTERIAL FULL PANELon 2022 Anion gap [Moles/Vol] 6 mmol/L Low 10 - 25 [facility] Comment on above: Performed By: #### A FPA4 ####[id number] [place] [address] BASE EXCESS-BLOOD 7.7 mmol/L High -2.0 - 3.0 [facility], [place] Comment on above: Performed By: #### A FPA4 ####[id number] [place] [address] BICARB, CALCULATED 33.6 mmol/L High 22.0 - 26.0 [facility] Comment on above: Performed By: #### A FPA4 ####[id number] [place] [address] CALCIUM,IONIZED 1.17 mmol/L Normal 1.10 - 1.33 [facility] [place] Comment on above: Performed By: #### A FPA4 ####[id number] [place] [address] Chloride [Moles/Vol] 102 mmol/L Normal 98 - 107 [facility] Comment on above: Performed By: #### A FPA4 ####[id number] [place] [address] Glucose [Mass/Vol] 145 mg/dL High 74 - 99 [facility] Comment on above: Performed By: #### A FPA4 ####[id number] [place] [address] Hematocrit (Bld) [Volume fraction] 32.0 % Low 41.0 - 52.0 [facility] Comment on above: Performed By: #### A FPA4 ####[id number] [place] [address] Hemoglobin (Bld) [Mass/Vol] 10.6 g/dL Low 13.5 - 17.5 [facility] Comment on above: Performed By: #### A FPA4 ####[id number] [place] [address] Lactate [Moles/Vol] 0.9 mmol/L Normal 0.4 - 2.0 [facility] Comment on above: Performed By: #### A FPA4 ####[id number] [place] [address] OXY HGB 94.8 % Normal 94.0 - 98.0 [facility] Comment on above: Performed By: #### A FPA4 ####[id number] [place] [address] Oxygen (Bld) [Partial pressure] 81 mm[Hg] Low 85 - 95 [facility] Comment on above: Performed By: #### A FPA4 ####[id number] [place] [address] PATIENT TEMPERATURE 37.0 degrees C Normal [facility] Comment on above: Result Comment: NOTE : PATIENT RESULTS ARE NOT CORRECTED FOR TEMPERATURE. Performed By: #### A FPA4 ####[id number] [place] [address] PCO2 53 mmHg High 38 - 42 [facility] Comment on above: Performed By: #### A FPA4 ####[id number] [place] [address] pH (Bld) 7.41 [pH] Normal 7.38 - 7.42 [facility] Comment on above: Performed By: #### A FPA4 ####[id number] [place] [address] Potassium [Moles/Vol] 4.6 mmol/L Normal 3.5 - 5.3 [facility] Comment on above: Performed By: #### A FPA4 ####[id number] [place] [address] SO2 98 % Normal 94 - 100 [facility] Comment on above: Performed By: #### A FPA4 ####[id number] [place] [address] Sodium [Moles/Vol] 137 mmol/L Normal 136 - 145 [facility] Comment on above: Performed By: #### A FPA4 ####[id number] [place] [address] Anion gap [Moles/Vol] 9 mmol/L Low 10 - 25 [facility] Comment on above: Performed By: #### A FPA4 ####[id number] [place] [address] BASE EXCESS-BLOOD 6.1 mmol/L High -2.0 - 3.0 [facility] [place] Comment on above: Performed By: #### A FPA4 ####[id number] [place] [address] BICARB, CALCULATED 30.6 mmol/L High 22.0 - 26.0 [facility] Comment on above: Performed By: #### A FPA4 ####[id number] [place] [address] CALCIUM,IONIZED 1.16 mmol/L Normal 1.10 - 1.33 [facility] [place] Comment on above: Performed By: #### A FPA4 ####[id number] [place] [address] Chloride [Moles/Vol] 101 mmol/L Normal 98 - 107 [facility] Comment on above: Performed By: #### A FPA4 ####[id number] [place] [address] Glucose [Mass/Vol] 171 mg/dL High 74 - 99 [facility] Comment on above: Performed By: #### A FPA4 ####[id number] [place] [address] Hematocrit (Bld) [Volume fraction] 32.0 % Low 41.0 - 52.0 [facility] Comment on above: Performed By: #### A FPA4 ####[id number] [place] [address] Hemoglobin (Bld) [Mass/Vol] 10.8 g/dL Low 13.5 - 17.5 [facility] Comment on above: Performed By: #### A FPA4 ####[id number] [place] [address] Lactate [Moles/Vol] 1.3 mmol/L Normal 0.4 - 2.0 [facility] Comment on above: Performed By: #### A FPA4 ####[id number] [place] [address] OXY HGB 95.8 % Normal 94.0 - 98.0 [facility] Comment on above: Performed By: #### A FPA4 ####[id number] [place] [address] Oxygen (Bld) [Partial pressure] 107 mm[Hg] High 85 - 95 [facility] Comment on above: Performed By: #### A FPA4 ####[id number] [place] [address] PATIENT TEMPERATURE 37.0 degrees C Normal [facility] Comment on above: Result Comment: NOTE : PATIENT RESULTS ARE NOT CORRECTED FOR TEMPERATURE. Performed By: #### A FPA4 ####[id number] [place] [address] PCO2 43 mmHg High 38 - 42 [facility] Comment on above: Performed By: #### A FPA4 ####[id number] [place] [address] pH (Bld) 7.46 [pH] High 7.38 - 7.42 [facility] Comment on above: Performed By: #### A FPA4 ####[id number] [place] [address] Potassium [Moles/Vol] 4.4 mmol/L Normal 3.5 - 5.3 [facility] Comment on above: Performed By: #### A FPA4 ####[id number] [place] [address] SO2 99 % Normal 94 - 100 [facility] Comment on above: Performed By: #### A FPA4 ####[id number] [place] [address] Sodium [Moles/Vol] 136 mmol/L Normal 136 - 145 [facility] Comment on above: Performed By: #### A FPA4 ####[id number] [place] [address] BASIC METABOLIC PANELon 07-0 8-2022 Anion gap [Moles/Vol] 13 mmol/L Normal 10 - 20 [facility] Comment on above: Performed By: #### B MP ####[id number] [place] [address] Calcium [Mass/Vol] 9.1 mg/dL Normal 8.6 - 10.6 [facility] Comment on above: Performed By: #### B MP ####[id number] [place] [address] Chloride [Moles/Vol] 97 mmol/L Low 98 - 107 [facility] Comment on above: Performed By: #### B MP ####[id number] [place] [address] Creatinine [Mass/Vol] 1.51 mg/dL High 0.50 - 1.30 [facility] Comment on above: Performed By: #### B MP ####[id number] [place] [address] GFR/1.73 sq M.predicted among non-blacks MDRD (S/P/Bld) [Vol rate/Area] 58 mL/min/{1.73_m2} Abnormal >90 [facility] Comment on above: Result Comment: CALC ULATIONS OF ESTIMATED GFR ARE PERFORMED USING THE 2020 CKD-EPI STUDY REFIT EQUATION WITHOUT THE RACE VARIABLE FOR THE IDMS-TRACEABLE CREATININE METHODS.https://jasn.asnjournals.org/content//A SN.5901981045 Performed By: #### B MP ####[id number] [place] [address] Glucose [Mass/Vol] 131 mg/dL High 74 - 99 [facility] Comment on above: Performed By: #### B MP ####[id number] [place] [address] HCO3 (Bld) [Moles/Vol] 33 mmol/L High 21 - 32 [facility] Comment on above: Performed By: #### B MP ####[id number] [place] [address] Potassium [Moles/Vol] 3.9 mmol/L Normal 3.5 - 5.3 [facility] Comment on above: Performed By: #### B MP ####[id number] [place] [address] Sodium [Moles/Vol] 139 mmol/L Normal 136 - 145 [facility] Comment on above: Performed By: #### B MP ####[id number] [place] [address] Urea nitrogen [Mass/Vol] 31 mg/dL High 6 - 23 [facility] Comment on above: Performed By: #### B MP ####[id number] [place] [address] CALCIUM, IONIZEDon 3 CALCIUM,IONIZED 1.11 mmol/L Normal 1.10 - 1.33 [facility], [place] Comment on above: Result Comment: The performance characteristics of ionized calcium tested in heparinized plasma or serum have been validated by the individual laboratory site where testing is performed. Testing on heparinized plasma or serum is not approved by the FDA; however, such approval is not necessary. Performed By: #### I ONC1 ####[id number] [place] [address] CBC AND DIFFERENTIALon 08-20 % AUTOMATED IMMATURE GRAN 0.7 % Normal 0.0 - 0.9 [facility] Comment on above: Result Comment: Nicki ture Granulocyte Count (IG) includes promyelocytes, myelocytes and metamyelocytes but does not include bands. Percent differential counts (%) should be interpreted in the context of the absolute cell counts (cells/L). Performed By: #### C BCDF ####[id number] [place] [address] Basophils (Bld) [#/Vol] 0.06 10*3/uL Normal 0.00 - 0.10 [facility] Comment on above: Performed By: #### C BCDF ####[id number] [place] [address] Basophils/100 WBC (Bld) 0.4 % Normal 0.0 - 2.0 [facility] Comment on above: Performed By: #### C BCDF ####[id number] [place] [address] Eosinophils (Bld) [#/Vol] 0.21 10*3/uL Normal 0.00 - 0.70 [facility] Comment on above: Performed By: #### C BCDF ####[id number] [place] [address] Eosinophils/100 WBC (Bld) 1.3 % Normal 0.0 - 6.0 [facility] Comment on above: Performed By: #### C BCDF ####[id number] [place] [address] Erythrocyte distribution width (RBC) [Ratio] 14.1 % Normal 11.5 - 14.5 [facility] Comment on above: Performed By: #### C BCDF ####[id number] [place] [address] Hematocrit (Bld) [Volume fraction] 32.5 % Low 41.0 - 52.0 [facility] Comment on above: Performed By: #### C BCDF ####[id number] [place] [address] Hemoglobin (Bld) [Mass/Vol] 10.3 g/dL Low 13.5 - 17.5 [facility] Comment on above: Performed By: #### C BCDF ####[id number] [place] [address] Lymphocytes (Bld) [#/Vol] 0.90 10*3/uL Low 1.20 - 4.80 [facility] Comment on above: Performed By: #### C BCDF ####[id number] [place] [address] Lymphocytes/100 WBC (Bld) 5.7 % Normal 13.0 - 44.0 [facility] Comment on above: Performed By: #### C BCDF ####[id number] [place] [address] MCHC (RBC) [Mass/Vol] 31.7 g/dL Low 32.0 - 36.0 [facility] Comment on above: Performed By: #### C BCDF ####[id number] [place] [address] MCV (RBC) [Entitic vol] 101 fL High 80 - 100 [facility] Comment on above: Performed By: #### C BCDF ####[id number] [place] [address] Monocytes (Bld) [#/Vol] 0.82 10*3/uL Normal 0.10 - 1.00 [facility] Comment on above: Performed By: #### C BCDF ####[id number] [place] [address] Monocytes/100 WBC (Bld) 5.2 % Normal 2.0 - 10.0 [facility] Comment on above: Performed By: #### C BCDF ####[id number] [place] [address] Neutrophils (Bld) [#/Vol] 13.56 10*3/uL High 1.20 - 7.70 [facility] Comment on above: Performed By: #### C BCDF ####[id number] [place] [address] Neutrophils/100 WBC (Bld) 86.7 % Normal 40.0 - 80.0 [facility] Comment on above: Performed By: #### C BCDF ####[id number] [place] [address] NUCLEATED RBC 0.0 /100 WBC Normal 0.0-0.0 [facility] Comment on above: Performed By: #### C BCDF ####[id number] [place] [address] Platelets (Bld) [#/Vol] 176 10*3/uL Normal 150 - 450 [facility] Comment on above: Performed By: #### C BCDF ####[id number] [place] [address] RBC 3.23 x10E12/L Low 4.50 - 5.90 [facility] Comment on above: Performed By: #### C BCDF ####[id number] [place] [address] WBC (Bld) [#/Vol] 15.7 10*3/uL High 4.4 - 11.3 [facility] Comment on above: Performed By: #### C BCDF ####[id number] [place] [address] % AUTOMATED IMMATURE GRAN 0.7 % Normal 0.0 - 0.9 [facility] Comment on above: Result Comment: Nicki ture Granulocyte Count (IG) includes promyelocytes, myelocytes and metamyelocytes but does not include bands. Percent differential counts (%) should be interpreted in the context of the absolute cell counts (cells/L). Performed By: #### C BCDF ####[id number] [place] [address] Basophils (Bld) [#/Vol] 0.09 10*3/uL Normal 0.00 - 0.10 [facility] Comment on above: Performed By: #### C BCDF ####[id number] [place] [address] Basophils/100 WBC (Bld) 0.5 % Normal 0.0 - 2.0 [facility] Comment on above: Performed By: #### C BCDF ####[id number] [place] [address] Eosinophils (Bld) [#/Vol] 0.13 10*3/uL Normal 0.00 - 0.70 [facility] Comment on above: Performed By: #### C BCDF ####[id number] [place] [address] Eosinophils/100 WBC (Bld) 0.7 % Normal 0.0 - 6.0 [facility] Comment on above: Performed By: #### C BCDF ####[id number] [place] [address] Erythrocyte distribution width (RBC) [Ratio] 13.9 % Normal 11.5 - 14.5 [facility] Comment on above: Performed By: #### C BCDF ####[id number] [place] [address] Hematocrit (Bld) [Volume fraction] 31.2 % Low 41.0 - 52.0 [facility] Comment on above: Performed By: #### C BCDF ####[id number] [place] [address] Hemoglobin (Bld) [Mass/Vol] 10.4 g/dL Low 13.5 - 17.5 [facility] Comment on above: Performed By: #### C BCDF ####[id number] [place] [address] Lymphocytes (Bld) [#/Vol] 0.91 10*3/uL Low 1.20 - 4.80 [facility] Comment on above: Performed By: #### C BCDF ####[id number] [place] [address] Lymphocytes/100 WBC (Bld) 4.8 % Normal 13.0 - 44.0 [facility] Comment on above: Performed By: #### C BCDF ####[id number] [place] [address] MCHC (RBC) [Mass/Vol] 33.3 g/dL Normal 32.0 - 36.0 [facility] Comment on above: Performed By: #### C BCDF ####[id number] [place] [address] MCV (RBC) [Entitic vol] 95 fL Normal 80 - 100 [facility] Comment on above: Performed By: #### C BCDF ####[id number] [place] [address] Monocytes (Bld) [#/Vol] 1.14 10*3/uL High 0.10 - 1.00 [facility] Comment on above: Performed By: #### C BCDF ####[id number] [place] [address] Monocytes/100 WBC (Bld) 6.0 % Normal 2.0 - 10.0 [facility] Comment on above: Performed By: #### C BCDF ####[id number] [place] [address] Neutrophils (Bld) [#/Vol] 16.68 10*3/uL High 1.20 - 7.70 [facility] Comment on above: Performed By: #### C BCDF ####[id number] [place] [address] Neutrophils/100 WBC (Bld) 87.3 % Normal 40.0 - 80.0 [facility] Comment on above: Performed By: #### C BCDF ####[id number] [place] [address] NUCLEATED RBC 0.0 /100 WBC Normal 0.0-0.0 [facility] Comment on above: Performed By: #### C BCDF ####[id number] [place] [address] Platelets (Bld) [#/Vol] 185 10*3/uL Normal 150 - 450 [facility] Comment on above: Performed By: #### C BCDF ####[id number] [place] [address] RBC 3.29 x10E12/L Low 4.50 - 5.90 [facility] Comment on above: Performed By: #### C BCDF ####[id number] [place] [address] WBC (Bld) [#/Vol] 19.1 10*3/uL High 4.4 - 11.3 [facility] Comment on above: Performed By: #### C BCDF ####[id number] [place] [address] COAGULATION SCREENon 023 aPTT Coag (Bld) [Time] 28 s Normal 27 - 38 [facility] Comment on above: Result Comment: Note new reference range as of 08/02/2022 at 10:00am. Performed By: #### C OAGS ####[id number] [place] [address] PT Coag (PPP) [Time] 15.7 s High 9.8 - 12.8 [facility] Comment on above: Result Comment: Note new reference range as of 08/02/2022 at 10:00am. Performed By: #### C OAGS ####[id number] [place] [address] PT, INR 1.4 High 0.9 - 1.1 [facility] Comment on above: Performed By: #### C OAGS ####[id number] [place] [address] Daily Progress Note - Critic al Careon 08-20-2022 Daily Progress Note - Critical Care Normal [facility] Daily Progress Note - Critic al Care-CTICUon 08-20-2022 Daily Progress Note - Critical Care-CTICU Normal [facility] GLUCOSE-POCTon 08-20-2022 Glucose [Mass/Vol] 121 mg/dL High 74 - 99 [facility] Comment on above: Performed By: #### G EDI ####[id number] [place] [address] Glucose [Mass/Vol] 115 mg/dL High 74 - 99 [facility] Comment on above: Performed By: #### G EDI ####[id number] [place] [address] Glucose [Mass/Vol] 123 mg/dL High 74 - 99 [facility] Comment on above: Performed By: #### G EDI ####[id number] [place] [address] Glucose [Mass/Vol] 125 mg/dL High 74 - 99 [facility] Comment on above: Performed By: #### G EDI ####[id number] [place] [address] Glucose [Mass/Vol] 120 mg/dL High 74 - 99 [facility] Comment on above: Performed By: #### G EDI ####[id number] [place] [address] HEPARIN ASSAY,UFHon 08-21-19 HEPARIN ASSAY,UFH <0.1 Normal [facility] [place] Comment on above: Result Comment: The therapeutic reference range for UFH may be either 0.3-0.6 IU/mL or 0.3-0.7 IU/mL based on the clinical setting for anticoagulant therapy and the associated nomogram used. For heparin dosing guidelines based on clinical scenario and Heparin Assay results, please refer to local Pharmacy and the [facility] Guidelines for Anticoagulation therapy available on the [facility] intranet at:[email or web address] Performed By: #### H AUF ####[id number] [place] [address] HEPARIN ASSAY,UFH <0.1 Normal [facility] [place] Comment on above: Result Comment: The therapeutic reference range for UFH may be either 0.3-0.6 IU/mL or 0.3-0.7 IU/mL based on the clinical setting for anticoagulant therapy and the associated nomogram used. For heparin dosing guidelines based on clinical scenario and Heparin Assay results, please refer to local Pharmacy and the [facility] Guidelines for Anticoagulation therapy available on the [facility] intranet at:[email or web address].aspx Performed By: #### H AUF ####[id number] [place] [address] Heparin assay, UFHon 023 Heparin unfractionated Chromogenic method Qn (PPP) Canceled [facility] Work Phone: Comment on above: The therapeutic refe rence range for UFH may be either 0.3-0.6 IU/mL or 0.3-0.7 IU/mL based on the clinical setting for anticoagulant therapy and the associated nomogram used. For heparin dosing guidelines based on clinical scenario and Heparin Assay results, please refer to local Pharmacy and [facility] [place] [place] Guidelines for Anticoagulation therapy available on the [facility] intranet at:[email or web address] MAGNESIUMon 08-20-2022 Magnesium [Mass/Vol] 2.22 mg/dL Normal 1.60 - 2.40 [facility] Comment on above: Performed By: #### M G ####[id number] [place] [address] Magnesium [Mass/Vol] 2.24 mg/dL Normal 1.60 - 2.40 [facility] Comment on above: Performed By: #### M G ####[id number] [place] [address] MV FULL PANELon 08-20-2022 Anion gap [Moles/Vol] 4 mmol/L Low 10 - 25 [facility] Comment on above: Performed By: #### M VPA4 ####[id number] [place] [address] BASE EXCESS-BLOOD 9.7 mmol/L Normal [facility] [place] Comment on above: Performed By: #### M VPA4 ####[id number] [place] [address] BICARB, CALCULATED 36.7 mmol/L Normal [facility] Comment on above: Performed By: #### M VPA4 ####[id number] [place] [address] CALCIUM,IONIZED 1.20 mmol/L Normal 1.10 - 1.33 [facility] [place] Comment on above: Performed By: #### M VPA4 ####[id number] [place] [address] Chloride [Moles/Vol] 100 mmol/L Normal 98 - 107 [facility] Comment on above: Performed By: #### M VPA4 ####[id number] [place] [address] Glucose [Mass/Vol] 132 mg/dL High 74 - 99 [facility] Comment on above: Performed By: #### M VPA4 ####[id number] [place] [address] Hematocrit (Bld) [Volume fraction] 32.0 % Low 41.0 - 52.0 [facility] Comment on above: Performed By: #### M VPA4 ####[id number] [place] [address] Hemoglobin (Bld) [Mass/Vol] 10.8 g/dL Low 13.5 - 17.5 [facility] Comment on above: Performed By: #### M VPA4 ####[id number] [place] [address] Lactate [Moles/Vol] 1.0 mmol/L Normal 0.4 - 2.0 [facility] Comment on above: Performed By: #### M VPA4 ####[id number] [place] [address] OXY HGB 61.0 % Normal 45.0 - 75.0 [facility] Comment on above: Performed By: #### M VPA4 ####[id number] [place] [address] Oxygen (Bld) [Partial pressure] 43 mm[Hg] Normal [facility] Comment on above: Performed By: #### M VPA4 ####[id number] [place] [address] PATIENT TEMPERATURE 37.0 degrees Normal [facility] Comment on above: Result Comment: NOTE : PATIENT RESULTS ARE NOT CORRECTED FOR TEMPERATURE. Performed By: #### M VPA4 ####[id number] [place] [address] PCO2 62 mmHg Normal [facility] Comment on above: Performed By: #### M VPA4 ####[id number] [place] [address] pH (Bld) 7.38 [pH] Normal [facility] Comment on above: Performed By: #### M VPA4 ####[id number] [place] [address] Potassium [Moles/Vol] 4.4 mmol/L Normal 3.5 - 5.3 [facility] Comment on above: Performed By: #### M VPA4 ####[id number] [place] [address] SO2 62 % Normal [facility] Comment on above: Performed By: #### M VPA4 ####[id number] [place] [address] Sodium [Moles/Vol] 136 mmol/L Normal 136 - 145 [facility] Comment on above: Performed By: #### M VPA4 ####[id number] [place] [address] RENAL FUNCTION PANELon 08-20 Albumin [Mass/Vol] 3.4 g/dL Normal 3.4 - 5.0 [facility] Comment on above: Performed By: #### R ENAL ####[id number] [place] [address] Anion gap [Moles/Vol] 14 mmol/L Normal 10 - 20 [facility] Comment on above: Performed By: #### R ENAL ####[id number] [place] [address] Calcium [Mass/Vol] 8.7 mg/dL Normal 8.6 - 10.6 [facility] Comment on above: Performed By: #### R ENAL ####[id number] [place] [address] Chloride [Moles/Vol] 99 mmol/L Normal 98 - 107 [facility] Comment on above: Performed By: #### R ENAL ####[id number] [place] [address] Creatinine [Mass/Vol] 1.68 mg/dL High 0.50 - 1.30 [facility] Comment on above: Performed By: #### R ENAL ####[id number] [place] [address] GFR/1.73 sq M.predicted among non-blacks MDRD (S/P/Bld) [Vol rate/Area] 51 mL/min/{1.73_m2} Abnormal >90 [facility] Comment on above: Result Comment: CALC ULATIONS OF ESTIMATED GFR ARE PERFORMED USING THE 2020 CKD-EPI STUDY REFIT EQUATION WITHOUT THE RACE VARIABLE FOR THE IDMS-TRACEABLE CREATININE METHODS.https://jasn.asnjournals.org/content/early/A SN.1856863878 Performed By: #### R ENAL ####[id number] [place] [address] Glucose [Mass/Vol] 124 mg/dL High 74 - 99 [facility] Comment on above: Performed By: #### R ENAL ####[id number] [place] [address] HCO3 (Bld) [Moles/Vol] 31 mmol/L Normal 21 - 32 [facility] Comment on above: Performed By: #### R ENAL ####[id number] [place] [address] Phosphate [Mass/Vol] 6.4 mg/dL High 2.5 - 4.9 [facility] Comment on above: Result Comment: The performance characteristics of phosphorus testing in heparinized plasma have been validated by the individual laboratory site where testing is performed. Testing on heparinized plasma is not approved by the FDA; however, such approval is not necessary. Performed By: #### R ENAL ####[id number] [place] [address] Potassium [Moles/Vol] 4.3 mmol/L Normal 3.5 - 5.3 [facility] Comment on above: Performed By: #### R ENAL ####[id number] [place] [address] Sodium [Moles/Vol] 140 mmol/L Normal 136 - 145 [facility] Comment on above: Performed By: #### R ENAL ####[id number] [place] [address] Urea nitrogen [Mass/Vol] 30 mg/dL High 6 - 23 [facility] Comment on above: Performed By: #### R ENAL ####[id number] [place] [address] Albumin [Mass/Vol] 3.6 g/dL Normal 3.4 - 5.0 [facility] Comment on above: Performed By: #### R ENAL ####[id number] [place] [address] Anion gap [Moles/Vol] 15 mmol/L Normal 10 - 20 [facility] Comment on above: Performed By: #### R ENAL ####[id number] [place] [address] Calcium [Mass/Vol] 8.8 mg/dL Normal 8.6 - 10.6 [facility] Comment on above: Performed By: #### R ENAL ####[id number] [place] [address] Chloride [Moles/Vol] 98 mmol/L Normal 98 - 107 [facility] Comment on above: Performed By: #### R ENAL ####[id number] [place] [address] Creatinine [Mass/Vol] 1.94 mg/dL High 0.50 - 1.30 [facility] Comment on above: Performed By: #### R ENAL ####[id number] [place] [address] GFR/1.73 sq M.predicted among non-blacks MDRD (S/P/Bld) [Vol rate/Area] 43 mL/min/{1.73_m2} Abnormal >90 [facility] Comment on above: Result Comment: CALC ULATIONS OF ESTIMATED GFR ARE PERFORMED USING THE 2020 CKD-EPI STUDY REFIT EQUATION WITHOUT THE RACE VARIABLE FOR THE IDMS-TRACEABLE CREATININE METHODS.https://jasn.asnjournals.org/content/early//A SN.1391166477 Performed By: #### R ENAL ####[id number] [place] [address] Glucose [Mass/Vol] 171 mg/dL High 74 - 99 [facility] Comment on above: Performed By: #### R ENAL ####[id number] [place] [address] HCO3 (Bld) [Moles/Vol] 29 mmol/L Normal 21 - 32 [facility] Comment on above: Performed By: #### R ENAL ####[id number] [place] [address] Phosphate [Mass/Vol] 5.9 mg/dL High 2.5 - 4.9 [facility] Comment on above: Result Comment: The performance characteristics of phosphorus testing in heparinized plasma have been validated by the individual laboratory site where testing is performed. Testing on heparinized plasma is not approved by the FDA; however, such approval is not necessary. Performed By: #### R ENAL ####[id number] [place] [address] Potassium [Moles/Vol] 4.3 mmol/L Normal 3.5 - 5.3 [facility] Comment on above: Performed By: #### R ENAL ####[id number] [place] [address] Sodium [Moles/Vol] 138 mmol/L Normal 136 - 145 [facility] Comment on above: Performed By: #### R ENAL ####[id number] [place] [address] Urea nitrogen [Mass/Vol] 27 mg/dL High 6 - 23 [facility] Comment on above: Performed By: #### R ENAL ####[id number] [place] [address] TH CHEST 1 VIEWon 08-20-2022 TH CHEST 1 VIEW Normal [facility] TYPE + SCREENon 08-20-2022 ABO TYPE O Normal [facility] Comment on above: Performed By: #### T +S ####[id number] [place] [address] RH TYPE Positive Normal [facility] Comment on above: Performed By: #### T +S ####[id number] [place] [address] VANCOMYCINon 08-20-2022 VANCOMYCIN 18.0 ug/mL Normal [facility] Comment on above: Result Comment: .The rapeutic Ranges: Peak: All ages: 30.0-40.0 ug/mL. Trough: Age <18y: 5.0-10.0 ug/mL. Age >/= 18y: 5.0-20.0 ug/mL. Vancomycin trough concentrations drawn immediately prior to the next dose at steady-state are preferred for monitoring patients treated with vancomycin. Ref.: Am J Health-Syst Pharm 66: 83-98, 2008. Performed By: #### V ANCU ####[id number] [place] [address] Vancomycin Level, Randomon 0 08-20-2022 Vancomycin [Mass/Vol] Canceled [facility] Work Phone: Comment on above: .Therapeutic Ranges: Peak: All ages: 30.0-40.0 ug/mL. Trough: Age <18y: 5.0-10.0 ug/mL. Age >/= 18y: 5.0-20.0 ug/mL. Vancomycin trough concentrations drawn immediately prior to the next dose at steady-state are preferred for monitoring patients treated with vancomycin. Ref.: Am J Health-Syst Pharm 66: 83-98, 2008. ARTERIAL FULL PANELon 2022 Anion gap [Moles/Vol] 7 mmol/L Low 10 - 25 [facility] Comment on above: Performed By: #### A FPA4 ####[id number] [place] [address] BASE EXCESS-BLOOD -2.2 mmol/L Low -2.0 - 3.0 [facility] Comment on above: Performed By: #### A FPA4 ####[id number] [place] [address] BICARB, CALCULATED 22.3 mmol/L Normal 22.0 - 26.0 [facility] Comment on above: Performed By: #### A FPA4 ####[id number] [place] [address] CALCIUM,IONIZED 0.98 mmol/L Low 1.10 - 1.33 [facility] [place] Comment on above: Performed By: #### A FPA4 ####[id number] [place] [address] Chloride [Moles/Vol] 113 mmol/L High 98 - 107 [facility] Comment on above: Performed By: #### A FPA4 ####[id number] [place] [address] CPAP 5.0 cm H2O Normal [facility] Comment on above: Performed By: #### A FPA4 ####[id number] [place] [address] FIO2 40 % Normal [facility] Comment on above: Performed By: #### A FPA4 ####[id number] [place] [address] Glucose [Mass/Vol] 113 mg/dL High 74 - 99 [facility] Comment on above: Performed By: #### A FPA4 ####[id number] [place] [address] Hematocrit (Bld) [Volume fraction] 25.0 % Low 41.0 - 52.0 [facility] Comment on above: Performed By: #### A FPA4 ####[id number] [place] [address] Hemoglobin (Bld) [Mass/Vol] 8.4 g/dL Low 13.5 - 17.5 [facility] Comment on above: Performed By: #### A FPA4 ####[id number] [place] [address] Lactate [Moles/Vol] 0.8 mmol/L Normal 0.4 - 2.0 [facility] Comment on above: Performed By: #### A FPA4 ####[id number] [place] [address] OXY HGB 95.9 % Normal 94.0 - 98.0 [facility] Comment on above: Performed By: #### A FPA4 ####[id number] [place] [address] Oxygen (Bld) [Partial pressure] 88 mm[Hg] Normal 85 - 95 [facility] Comment on above: Performed By: #### A FPA4 ####[id number] [place] [address] PATIENT TEMPERATURE 37.0 degrees C Normal [facility] Comment on above: Result Comment: NOTE : PATIENT RESULTS ARE NOT CORRECTED FOR TEMPERATURE. Performed By: #### A FPA4 ####[id number] [place] [address] PCO2 36 mmHg Low 38 - 42 [facility] Comment on above: Performed By: #### A FPA4 ####[id number] [place] [address] pH (Bld) 7.40 [pH] Normal 7.38 - 7.42 [facility] Comment on above: Performed By: #### A FPA4 ####[id number] [place] [address] Potassium [Moles/Vol] 4.2 mmol/L Normal 3.5 - 5.3 [facility] Comment on above: Performed By: #### A FPA4 ####[id number] [place] [address] PRESSURE SUPPORT 5 cm H2O Normal [facility] Comment on above: Performed By: #### A FPA4 ####[id number] [place] [address] SITE OF ARTERIAL PUNCTURE EPO 0.02 Normal [facility] Comment on above: Performed By: #### A FPA4 ####[id number] [place] [address] SO2 99 % Normal 94 - 100 [facility] Comment on above: Performed By: #### A FPA4 ####[id number] [place] [address] Sodium [Moles/Vol] 138 mmol/L Normal 136 - 145 [facility] Comment on above: Performed By: #### A FPA4 ####[id number] [place] [address] Anion gap [Moles/Vol] 7 mmol/L Low 10 - 25 [facility] Comment on above: Performed By: #### A FPA4 ####[id number] [place] [address] BASE EXCESS-BLOOD 4.1 mmol/L High -2.0 - 3.0 [facility] [place] Comment on above: Performed By: #### A FPA4 ####[id number] [place] [address] BICARB, CALCULATED 26.9 mmol/L High 22.0 - 26.0 [facility] Comment on above: Performed By: #### A FPA4 ####[id number] [place] [address] CALCIUM,IONIZED 1.12 mmol/L Normal 1.10 - 1.33 [facility] [place] Comment on above: Performed By: #### A FPA4 ####[id number] [place] [address] Chloride [Moles/Vol] 106 mmol/L Normal 98 - 107 [facility] Comment on above: Performed By: #### A FPA4 ####[id number] [place] [address] Glucose [Mass/Vol] 96 mg/dL Normal 74 - 99 [facility] Comment on above: Performed By: #### A FPA4 ####[id number] [id number] Hematocrit (Bld) [Volume fraction] 32.0 % Low 41.0 - 52.0 [facility] Comment on above: Performed By: #### A FPA4 ####[id number] [place] [address] Hemoglobin (Bld) [Mass/Vol] 10.8 g/dL Low 13.5 - 17.5 [facility] Comment on above: Performed By: #### A FPA4 ####[id number] [place] [address] Lactate [Moles/Vol] 1.7 mmol/L Normal 0.4 - 2.0 [facility] Comment on above: Performed By: #### A FPA4 ####[id number] [place] [address] OXY HGB 96.4 % Normal 94.0 - 98.0 [facility] Comment on above: Performed By: #### A FPA4 ####[id number] [place] [address] Oxygen (Bld) [Partial pressure] 101 mm[Hg] High 85 - 95 [facility] Comment on above: Performed By: #### A FPA4 ####[id number] [place] [address] PATIENT TEMPERATURE 37.0 degrees C Normal [facility] Comment on above: Result Comment: NOTE : PATIENT RESULTS ARE NOT CORRECTED FOR TEMPERATURE. Performed By: #### A FPA4 ####[id number] [place] [address] PCO2 33 mmHg Low 38 - 42 [facility] Comment on above: Performed By: #### A FPA4 ####[id number] [place] [address] pH (Bld) 7.52 [pH] High 7.38 - 7.42 [facility] Comment on above: Performed By: #### A FPA4 ####[id number] [place] [address] Potassium [Moles/Vol] 4.3 mmol/L Normal 3.5 - 5.3 [facility] Comment on above: Performed By: #### A FPA4 ####[id number] [place] [address] SO2 99 % Normal 94 - 100 [facility] Comment on above: Performed By: #### A FPA4 ####[id number] [place] [address] Sodium [Moles/Vol] 136 mmol/L Normal 136 - 145 [facility] Comment on above: Performed By: #### A FPA4 ####[id number] [place] [address] Anion gap [Moles/Vol] 10 mmol/L Normal 10 - 25 [facility] Comment on above: Performed By: #### A FPA4 ####[id number] [place] [address] BASE EXCESS-BLOOD 3.2 mmol/L High -2.0 - 3.0 [facility] [place] Comment on above: Performed By: #### A FPA4 ####[id number] [place] [address] BICARB, CALCULATED 26.9 mmol/L High 22.0 - 26.0 [facility] Comment on above: Performed By: #### A FPA4 ####[id number] [place] [address] CALCIUM,IONIZED 1.14 mmol/L Normal 1.10 - 1.33 [facility] [place] Comment on above: Performed By: #### A FPA4 ####[id number] [place] [address] Chloride [Moles/Vol] 104 mmol/L Normal 98 - 107 [facility] Comment on above: Performed By: #### A FPA4 ####[id number] [place] [address] Glucose [Mass/Vol] 245 mg/dL High 74 - 99 [facility] Comment on above: Performed By: #### A FPA4 ####[id number] [place] [address] Hematocrit (Bld) [Volume fraction] 33.0 % Low 41.0 - 52.0 [facility] Comment on above: Performed By: #### A FPA4 ####[id number] [place] [address] Hemoglobin (Bld) [Mass/Vol] 10.9 g/dL Low 13.5 - 17.5 [facility] Comment on above: Performed By: #### A FPA4 ####[id number] [place] [address] Lactate [Moles/Vol] 3.3 mmol/L High 0.4 - 2.0 [facility] Comment on above: Performed By: #### A FPA4 ####[id number] [place] [address] OXY HGB 96.4 % Normal 94.0 - 98.0 [facility] Comment on above: Performed By: #### A FPA4 ####[id number] [place] [address] Oxygen (Bld) [Partial pressure] 124 mm[Hg] High 85 - 95 [facility] Comment on above: Performed By: #### A FPA4 ####[id number] [place] [address] PATIENT TEMPERATURE 37.0 degrees C Normal [facility] Comment on above: Result Comment: NOTE : PATIENT RESULTS ARE NOT CORRECTED FOR TEMPERATURE. Performed By: #### A FPA4 ####[id number] [place] [address] PCO2 37 mmHg Low 38 - 42 [facility] Comment on above: Performed By: #### A FPA4 ####[id number] [place] [address] pH (Bld) 7.47 [pH] High 7.38 - 7.42 [facility] Comment on above: Performed By: #### A FPA4 ####[id number] [place] [address] Potassium [Moles/Vol] 4.4 mmol/L Normal 3.5 - 5.3 [facility] Comment on above: Performed By: #### A FPA4 ####[id number] [place] [address] SO2 99 % Normal 94 - 100 [facility] Comment on above: Performed By: #### A FPA4 ####[id number] [place] [address] Sodium [Moles/Vol] 136 mmol/L Normal 136 - 145 [facility] Comment on above: Performed By: #### A FPA4 ####[id number] [place] [address] Anion gap [Moles/Vol] 14 mmol/L Normal 10 - 25 [facility] Comment on above: Order Comment: Barbosa d- RB to PAM BOUCHAHINE, 08/19/2022 04:21 Performed By: #### A FPA4 ####[id number] [place] [address] BASE EXCESS-BLOOD 0.1 mmol/L Normal -2.0 - 3.0 [facility] [place] Comment on above: Order Comment: Barbosa d- RB to PAM BOUCHAHINE, 08/19/2022 04:21 Performed By: #### A FPA4 ####[id number] [place] [address] BICARB, CALCULATED 23.5 mmol/L Normal 22.0 - 26.0 [facility] Comment on above: Order Comment: Barbosa d- RB to PAM BOUCHAHINE, 08/19/2022 04:21 Performed By: #### A FPA4 ####[id number] [place] [address] CALCIUM,IONIZED 1.16 mmol/L Normal 1.10 - 1.33 [facility] [place] Comment on above: Order Comment: Barbosa d- RB to PAM BOUCHAHINE, 08/19/2022 04:21 Performed By: #### A FPA4 ####[id number] [place] [address] Chloride [Moles/Vol] 103 mmol/L Normal 98 - 107 [facility] Comment on above: Order Comment: Barbosa d- RB to PAM BOUCHAHINE, 08/19/2022 04:21 Performed By: #### A FPA4 ####[id number] [place] [address] Glucose [Mass/Vol] 304 mg/dL High 74 - 99 [facility] Comment on above: Order Comment: Barbosa d- RB to PAM BOBIENVENIDOAHINE, 08/19/2022 04:21 Performed By: #### A FPA4 ####[id number] [place] [address] Hematocrit (Bld) [Volume fraction] 32.0 % Low 41.0 - 52.0 [facility] Comment on above: Order Comment: Barbosa d- RB to PAM BOUCHAHINE, 08/19/2022 04:21 Performed By: #### A FPA4 ####[id number] [place] [address] Hemoglobin (Bld) [Mass/Vol] 10.8 g/dL Low 13.5 - 17.5 [facility] Comment on above: Order Comment: Barbosa d- RB to PAM BOUCHAHINE, 08/19/2022 04:21 Performed By: #### A FPA4 ####[id number] [place] [address] Lactate [Moles/Vol] 5.4 mmol/L Critically high 0.4 - 2.0 [facility] Comment on above: Order Comment: Barbosa d- RB to PAM BOUCHAHINE, 08/19/2022 04:21 Result Comment: Call ed- RB to PAM BOUCHAHINE, 08/19/2022 04:21 Performed By: #### A FPA4 ####[id number] [place] [address] OXY HGB 96.2 % Normal 94.0 - 98.0 [facility] Comment on above: Order Comment: Barbosa d- RB to PAM BOUCHAHINE, 08/19/2022 04:21 Performed By: #### A FPA4 ####[id number] [place] [address] Oxygen (Bld) [Partial pressure] 143 mm[Hg] High 85 - 95 [facility] Comment on above: Order Comment: Barbosa d- RB to PAM BOUCHAHINE, 08/19/2022 04:21 Performed By: #### A FPA4 ####[id number] [place] [address] PATIENT TEMPERATURE 37.0 degrees C Normal [facility] Comment on above: Order Comment: Barbosa d- RB to PAM BOUCHAHINE, 08/19/2022 04:21 Result Comment: NOTE : PATIENT RESULTS ARE NOT CORRECTED FOR TEMPERATURE. Performed By: #### A FPA4 ####[id number] [place] [address] PCO2 33 mmHg Low 38 - 42 [facility] Comment on above: Order Comment: Barbosa d- RB to PAM BOUCHAHINE, 08/19/2022 04:21 Performed By: #### A FPA4 ####[id number] [place] [address] pH (Bld) 7.46 [pH] High 7.38 - 7.42 [facility] Comment on above: Order Comment: Barbosa d- RB to PAM BOUCHAHINE, 08/19/2022 04:21 Performed By: #### A FPA4 ####[id number] [place] [address] Potassium [Moles/Vol] 4.7 mmol/L Normal 3.5 - 5.3 [facility] Comment on above: Order Comment: Barbosa d- RB to PAM BOUCHAHINE, 08/19/2022 04:21 Performed By: #### A FPA4 ####[id number] [place] [address] SO2 99 % Normal 94 - 100 [facility] Comment on above: Order Comment: Barbosa d- RB to PAM BOUCHAHINE, 08/19/2022 04:21 Performed By: #### A FPA4 ####[id number] [place] [address] Sodium [Moles/Vol] 136 mmol/L Normal 136 - 145 [facility] Comment on above: Order Comment: Barbosa d- RB to PAM BOUCHAHINE, 08/19/2022 04:21 Performed By: #### A FPA4 ####[id number] [place] [address] Anion gap [Moles/Vol] 19 mmol/L Normal 10 - 25 [facility] Comment on above: Order Comment: Barbosa d- RB to DR ISLAS, 08/19/2022 02:05 Performed By: #### A FPA4 ####[id number] [place] [address] BASE EXCESS-BLOOD -5.0 mmol/L Low -2.0 - 3.0 [facility] Comment on above: Order Comment: Barbosa d- RB to DR ISLAS, 08/19/2022 02:05 Performed By: #### A FPA4 ####[id number] [place] [address] BICARB, CALCULATED 19.8 mmol/L Low 22.0 - 26.0 [facility] Comment on above: Order Comment: Barbosa d- RB to DR ISLAS, 08/19/2022 02:05 Performed By: #### A FPA4 ####[id number] [place] [address] CALCIUM,IONIZED 1.16 mmol/L Normal 1.10 - 1.33 [facility] [place] Comment on above: Order Comment: Barbosa d- RB to DR ISLAS, 08/19/2022 02:05 Performed By: #### A FPA4 ####[id number] [place] [address] Chloride [Moles/Vol] 102 mmol/L Normal 98 - 107 [facility] Comment on above: Order Comment: Barbosa d- RB to DR ISLAS, 08/19/2022 02:05 Performed By: #### A FPA4 ####[id number] [place] [address] Glucose [Mass/Vol] 332 mg/dL High 74 - 99 [facility] Comment on above: Order Comment: Barbosa d- RB to DR ISLAS, 08/19/2022 02:05 Performed By: #### A FPA4 ####[id number] [place] [address] Hematocrit (Bld) [Volume fraction] 32.0 % Low 41.0 - 52.0 [facility] Comment on above: Order Comment: Barbosa d- RB to DR ISLAS, 08/19/2022 02:05 Performed By: #### A FPA4 ####[id number] [place] [address] Hemoglobin (Bld) [Mass/Vol] 10.7 g/dL Low 13.5 - 17.5 [facility] Comment on above: Order Comment: Barbosa d- RB to DR ISLAS, 08/19/2022 02:05 Performed By: #### A FPA4 ####[id number] [id number] Lactate [Moles/Vol] 8.6 mmol/L Critically high 0.4 - 2.0 [facility] Comment on above: Order Comment: Barbosa d- RB to DR ISLAS, 08/19/2022 02:05 Result Comment: Call ed- RB to DR ISLAS, 08/19/2022 02:05 Performed By: #### A FPA4 ####[id number] [id number] OXY HGB 96.2 % Normal 94.0 - 98.0 [facility] Comment on above: Order Comment: Barbosa d- RB to DR ISLAS, 08/19/2022 02:05 Performed By: #### A FPA4 ####[id number] [place] [address] Oxygen (Bld) [Partial pressure] 140 mm[Hg] High 85 - 95 [facility] Comment on above: Order Comment: Barbosa d- RB to DR ISLAS, 08/19/2022 02:05 Performed By: #### A FPA4 ####[id number] [place] [address] PATIENT TEMPERATURE 37.0 degrees C Normal [facility] Comment on above: Order Comment: Barbosa d- RB to DR ISLAS, 08/19/2022 02:05 Result Comment: NOTE : PATIENT RESULTS ARE NOT CORRECTED FOR TEMPERATURE. Performed By: #### A FPA4 ####[id number] [place] [address] PCO2 35 mmHg Low 38 - 42 [facility] Comment on above: Order Comment: Barbosa d- RB to DR ISLAS, 08/19/2022 02:05 Performed By: #### A FPA4 ####[id number] [place] [address] pH (Bld) 7.36 [pH] Low 7.38 - 7.42 [facility] Comment on above: Order Comment: Barbosa d- RB to DR ISLAS, 08/19/2022 02:05 Performed By: #### A FPA4 ####[id number] [place] [address] Potassium [Moles/Vol] 4.7 mmol/L Normal 3.5 - 5.3 [facility] Comment on above: Order Comment: Barbosa d- RB to DR ISLAS, 08/19/2022 02:05 Performed By: #### A FPA4 ####[id number] [place] [address] SO2 99 % Normal 94 - 100 [facility] Comment on above: Order Comment: Barbosa d- RB to DR ISLAS, 08/19/2022 02:05 Performed By: #### A FPA4 ####[id number] [place] [address] Sodium [Moles/Vol] 136 mmol/L Normal 136 - 145 [facility] Comment on above: Order Comment: Barbosa d- RB to DR ISLAS, 08/19/2022 02:05 Performed By: #### A FPA4 ####[id number] [place] [address] Anion gap [Moles/Vol] 21 mmol/L Normal 10 - 25 [facility] Comment on above: Order Comment: Barbosa d- RB to TERE ISLAS, 08/19/2022 00:40 Called- RB to SAMEAM SHAHZOËTANI, 08/19/2022 00:40 Performed By: #### A FPA4 ####[id number] [place] [address] BASE EXCESS-BLOOD -8.3 mmol/L Low -2.0 - 3.0 [facility] Comment on above: Order Comment: Barbosa d- RB to SAMEJACKELINE CONTRERASTANI, 08/19/2022 00:40 Called- RB to SAMEAM SHAHRESTANI, 08/19/2022 00:40 Performed By: #### A FPA4 ####[id number] [place] [address] BICARB, CALCULATED 17.1 mmol/L Low 22.0 - 26.0 [facility] Comment on above: Order Comment: Barbosa d- RB to SAMEJACKELINE CONTRERASTANI, 08/19/2022 00:40 Called- RB to SAMEAM SHAHZOËTANI, 08/19/2022 00:40 Performed By: #### A FPA4 ####[id number] [place] [address] CALCIUM,IONIZED 1.14 mmol/L Normal 1.10 - 1.33 [facility], [place] Comment on above: Order Comment: Barbosa d- RB to SAMEJCAKELINE CONTRERASTANI, 08/19/2022 00:40 Called- RB to SAMEJACKELINE SHAHZOËTANI, 08/19/2022 00:40 Performed By: #### A FPA4 ####[id number] [place] [address] Chloride [Moles/Vol] 102 mmol/L Normal 98 - 107 [facility] Comment on above: Order Comment: Barbosa d- RB to SAMEAM SHAHRESTANI, 08/19/2022 00:40 Called- RB to SAMEAM SHAHRESTANI, 08/19/2022 00:40 Performed By: #### A FPA4 ####[id number] [place] [address] Glucose [Mass/Vol] 330 mg/dL High 74 - 99 [facility] Comment on above: Order Comment: Barbosa d- RB to SAMEAM SHAHRESTANI, 08/19/2022 00:40 Called- RB to SAMEAM SHAHRESTANI, 08/19/2022 00:40 Performed By: #### A FPA4 ####[id number] [place] [address] Hematocrit (Bld) [Volume fraction] 33.0 % Low 41.0 - 52.0 [facility] Comment on above: Order Comment: Barbosa d- RB to SAMEJACKELINE SHAHZOËTANI, 08/19/2022 00:40 Called- RB to SAMEAM SHAHRESTANI, 08/19/2022 00:40 Performed By: #### A FPA4 ####[id number] [place] [address] Hemoglobin (Bld) [Mass/Vol] 10.9 g/dL Low 13.5 - 17.5 [facility] Comment on above: Order Comment: Barbosa d- RB to SAMEJACKELINE SHAHZOËTANI, 08/19/2022 00:40 Called- RB to SAMEAM SHAHRESTANI, 08/19/2022 00:40 Performed By: #### A FPA4 ####[id number] [place] [address] Lactate [Moles/Vol] 10.9 mmol/L Critically high 0.4 - 2.0 [facility] Comment on above: Order Comment: Barbosa d- RB to SAMEJACKELINE CONTRERASTANI, 08/19/2022 00:40 Called- RB to SAMEAM SHAHRESTANI, 08/19/2022 00:40 Result Comment: Call ed- RB to SAMEAM SHAHRESTANI, 08/19/2022 00:40 Called- RB to SAMEAM SHAHRESTANI, 08/19/2022 00:40 Performed By: #### A FPA4 ####[id number] [place] [address] OXY HGB 96.2 % Normal 94.0 - 98.0 [facility] Comment on above: Order Comment: Barbosa d- RB to SAMEAM SHAHRESTANI, 08/19/2022 00:40 Called- RB to SAMEAM SHAHRESTANI, 08/19/2022 00:40 Performed By: #### A FPA4 ####[id number] [place] [address] Oxygen (Bld) [Partial pressure] 142 mm[Hg] High 85 - 95 [facility] Comment on above: Order Comment: Barbosa d- RB to SAMEAM SHAHRESTANI, 08/19/2022 00:40 Called- RB to SAMEAM SHAHRESTANI, 08/19/2022 00:40 Performed By: #### A FPA4 ####[id number] [place] [address] PATIENT TEMPERATURE 37.0 degrees C Normal [facility] Comment on above: Order Comment: Barbosa d- RB to SAMEAM SHAHRESTANI, 08/19/2022 00:40 Called- RB to SAMEAM SHAHRESTANI, 08/19/2022 00:40 Result Comment: NOTE : PATIENT RESULTS ARE NOT CORRECTED FOR TEMPERATURE. Performed By: #### A FPA4 ####[id number] [id number] PCO2 34 mmHg Low 38 - 42 [facility] Comment on above: Order Comment: Barbosa d- RB to SAMEAM SHAHRESTANI, 08/19/2022 00:40 Called- RB to SAMEAM SHAHRESTANI, 08/19/2022 00:40 Performed By: #### A FPA4 ####[id number] [place] [address] pH (Bld) 7.31 [pH] Low 7.38 - 7.42 [facility] Comment on above: Order Comment: Barbosa d- RB to SAMEAM SHAHRESTANI, 08/19/2022 00:40 Called- RB to SAMEAM SHAHRESTANI, 08/19/2022 00:40 Performed By: #### A FPA4 ####[id number] [place] [address] Potassium [Moles/Vol] 4.6 mmol/L Normal 3.5 - 5.3 [facility] Comment on above: Order Comment: Barbosa d- RB to SAMEAM SHAHRESTANI, 08/19/2022 00:40 Called- RB to SAMEAM SHAHRESTANI, 08/19/2022 00:40 Performed By: #### A FPA4 ####[id number] [place] [address] SO2 99 % Normal 94 - 100 [facility] Comment on above: Order Comment: Barbosa d- RB to TERE CONTRERASTANI, 08/19/2022 00:40 Called- RB to TERE CONTRERASTANI, 08/19/2022 00:40 Performed By: #### A FPA4 ####[id number] [id number] Sodium [Moles/Vol] 135 mmol/L Low 136 - 145 [facility] Comment on above: Order Comment: Barbosa d- RB to TERE CONTRERASTANI, 08/19/2022 00:40 Called- RB to TERE CONTRERASTANI, 08/19/2022 00:40 Performed By: #### A FPA4 ####[id number] [id number] Anion gap [Moles/Vol] 23 mmol/L Normal 10 - 25 [facility] Comment on above: Order Comment: Barbosa d- RB to TERE MONTENEGROI, 08/18/2022 23:32 Performed By: #### A FPA4 ####[id number] [id number] BASE EXCESS-BLOOD -9.8 mmol/L Low -2.0 - 3.0 [facility] Comment on above: Order Comment: Barbosa d- RB to TERE CONTRERASTANI, 08/18/2022 23:32 Performed By: #### A FPA4 ####[id number] [place] [address] BICARB, CALCULATED 16.0 mmol/L Low 22.0 - 26.0 [facility] Comment on above: Order Comment: Barbosa d- RB to TERE CONTRERASTANI, 08/18/2022 23:32 Performed By: #### A FPA4 ####[id number] [id number] CALCIUM,IONIZED 1.15 mmol/L Normal 1.10 - 1.33 [facility], [place] Comment on above: Order Comment: Barbosa d- RB to SAMEAM BENTANI, 08/18/2022 23:32 Performed By: #### A FPA4 ####[id number] [place] [address] Chloride [Moles/Vol] 102 mmol/L Normal 98 - 107 [facility] Comment on above: Order Comment: Barbosa d- RB to SAMEAM SHAHZOËTANI, 08/18/2022 23:32 Performed By: #### A FPA4 ####[id number] [place] [address] Glucose [Mass/Vol] 329 mg/dL High 74 - 99 [facility] Comment on above: Order Comment: Barbosa d- RB to SAMEAM SHAHZOËTANI, 08/18/2022 23:32 Performed By: #### A FPA4 ####[id number] [place] [address] Hematocrit (Bld) [Volume fraction] 31.0 % Low 41.0 - 52.0 [facility] Comment on above: Order Comment: Barbosa d- RB to SAMEJACKELINE CONTRERASTANI, 08/18/2022 23:32 Performed By: #### A FPA4 ####[id number] [place] [address] Hemoglobin (Bld) [Mass/Vol] 10.4 g/dL Low 13.5 - 17.5 [facility] Comment on above: Order Comment: Barbosa d- RB to SAMEAM SHAHZOËTANI, 08/18/2022 23:32 Performed By: #### A FPA4 ####[id number] [place] [address] Lactate [Moles/Vol] 12.1 mmol/L Critically high 0.4 - 2.0 [facility] Comment on above: Order Comment: Barbosa d- RB to SAMEAM SHAHZOËTANI, 08/18/2022 23:32 Result Comment: Call ed- RB to SAMEAM SHAHZOËTANI, 08/18/2022 23:32 Performed By: #### A FPA4 ####[id number] [place] [address] OXY HGB 95.9 % Normal 94.0 - 98.0 [facility] Comment on above: Order Comment: Barbosa d- RB to TERE ISLAS, 08/18/2022 23:32 Performed By: #### A FPA4 ####[id number] [place] [address] Oxygen (Bld) [Partial pressure] 139 mm[Hg] High 85 - 95 [facility] Comment on above: Order Comment: Barbosa d- RB to TERE ISLAS, 08/18/2022 23:32 Performed By: #### A FPA4 ####[id number] [place] [address] PATIENT TEMPERATURE 37.0 degrees C Normal [facility] Comment on above: Order Comment: Barbosa d- RB to TERE ISLAS, 08/18/2022 23:32 Result Comment: NOTE : PATIENT RESULTS ARE NOT CORRECTED FOR TEMPERATURE. Performed By: #### A FPA4 ####[id number] [place] [address] PCO2 34 mmHg Low 38 - 42 [facility] Comment on above: Order Comment: Barbosa d- RB to TERE ISLAS, 08/18/2022 23:32 Performed By: #### A FPA4 ####[id number] [place] [address] pH (Bld) 7.28 [pH] Low 7.38 - 7.42 [facility] Comment on above: Order Comment: Barbosa d- RB to TERE ISLAS, 08/18/2022 23:32 Performed By: #### A FPA4 ####[id number] [place] [address] Potassium [Moles/Vol] 5.0 mmol/L Normal 3.5 - 5.3 [facility] Comment on above: Order Comment: Barboas d- RB to TERE ISLAS, 08/18/2022 23:32 Performed By: #### A FPA4 ####[id number] [place] [address] SO2 99 % Normal 94 - 100 [facility] Comment on above: Order Comment: Barbosa d- RB to TERE ISLAS, 08/18/2022 23:32 Performed By: #### A FPA4 ####[id number] [place] [address] Sodium [Moles/Vol] 136 mmol/L Normal 136 - 145 [facility] Comment on above: Order Comment: Barbosa d- RB to TERE ISLAS, 08/18/2022 23:32 Performed By: #### A FPA4 ####[id number] [place] [address] Anion gap [Moles/Vol] 24 mmol/L Normal 10 - 25 [facility] Comment on above: Order Comment: RB TO TERE ISLAS , 08/18/2022 23:19 Performed By: #### A FPA4 ####[id number] [place] [address] BASE EXCESS-BLOOD -9.9 mmol/L Low -2.0 - 3.0 [facility] Comment on above: Order Comment: RB TO TERE ISLAS , 08/18/2022 23:19 Performed By: #### A FPA4 ####[id number] [place] [address] BICARB, CALCULATED 16.1 mmol/L Low 22.0 - 26.0 [facility] Comment on above: Order Comment: RB TO TERE ISLAS , 08/18/2022 23:19 Performed By: #### A FPA4 ####[id number] [place] [address] CALCIUM,IONIZED 1.15 mmol/L Normal 1.10 - 1.33 [facility], [place] Comment on above: Order Comment: RB TO TERE ISLAS , 08/18/2022 23:19 Performed By: #### A FPA4 ####[id number] [place] [address] Chloride [Moles/Vol] 102 mmol/L Normal 98 - 107 [facility] Comment on above: Order Comment: RB TO TERE ISLAS , 08/18/2022 23:19 Performed By: #### A FPA4 ####[id number] [place] [address] Glucose [Mass/Vol] 331 mg/dL High 74 - 99 [facility] Comment on above: Order Comment: RB TO TERE ISLAS , 08/18/2022 23:19 Performed By: #### A FPA4 ####[id number] [place] [address] Hematocrit (Bld) [Volume fraction] 32.0 % Low 41.0 - 52.0 [facility] Comment on above: Order Comment: RB TO TERE ISLAS , 08/18/2022 23:19 Performed By: #### A FPA4 ####[id number] [place] [address] Hemoglobin (Bld) [Mass/Vol] 10.5 g/dL Low 13.5 - 17.5 [facility] Comment on above: Order Comment: RB TO TERE ISLAS , 08/18/2022 23:19 Performed By: #### A FPA4 ####[id number] [place] [address] Lactate [Moles/Vol] 12.3 mmol/L Critically high 0.4 - 2.0 [facility] Comment on above: Order Comment: RB TO TERE ISLAS , 08/18/2022 23:19 Result Comment: RB T O TERE ISLAS , 08/18/2022 23:19 Performed By: #### A FPA4 ####[id number] [place] [address] OXY HGB 96.3 % Normal 94.0 - 98.0 [facility] Comment on above: Order Comment: RB TO TERE ISLAS , 08/18/2022 23:19 Performed By: #### A FPA4 ####[id number] [place] [address] Oxygen (Bld) [Partial pressure] 116 mm[Hg] High 85 - 95 [facility] Comment on above: Order Comment: RB TO TERE ISLAS , 08/18/2022 23:19 Performed By: #### A FPA4 ####[id number] [place] [address] PATIENT TEMPERATURE 37.0 degrees C Normal [facility] Comment on above: Order Comment: RB TO TERE ISLAS , 08/18/2022 23:19 Result Comment: NOTE : PATIENT RESULTS ARE NOT CORRECTED FOR TEMPERATURE. Performed By: #### A FPA4 ####[id number] [place] [address] PCO2 35 mmHg Low 38 - 42 [facility] Comment on above: Order Comment: RB TO TERE ISLAS , 08/18/2022 23:19 Performed By: #### A FPA4 ####[id number] [place] [address] pH (Bld) 7.27 [pH] Low 7.38 - 7.42 [facility] Comment on above: Order Comment: RB TO TERE ISLAS , 08/18/2022 23:19 Performed By: #### A FPA4 ####[id number] [place] [address] Potassium [Moles/Vol] 4.7 mmol/L Normal 3.5 - 5.3 [facility] Comment on above: Order Comment: RB TO TERE ISLAS , 08/18/2022 23:19 Performed By: #### A FPA4 ####[id number] [place] [address] SO2 99 % Normal 94 - 100 [facility] Comment on above: Order Comment: RB TO TERE ISLAS , 08/18/2022 23:19 Performed By: #### A FPA4 ####[id number] [place] [address] Sodium [Moles/Vol] 137 mmol/L Normal 136 - 145 [facility] Comment on above: Order Comment: RB TO TERE ISLAS , 08/18/2022 23:19 Performed By: #### A FPA4 ####[id number] [place] [address] BLOOD CULTURE, BACTERIALon 0 08-19-2022 BLOOD CULTURE, BACTERIAL Normal [facility] Comment on above: Performed By: #### B LDC ####[id number] [place] [address] BLOOD CULTURE, BACTERIAL Normal [facility] Comment on above: Performed By: #### B LDC ####[id number] [place] [address] CALCIUM, IONIZEDon 3 CALCIUM,IONIZED 1.07 mmol/L Low 1.10 - 1.33 [facility], [place] Comment on above: Result Comment: The performance characteristics of ionized calcium tested in heparinized plasma or serum have been validated by the individual laboratory site where testing is performed. Testing on heparinized plasma or serum is not approved by the FDA; however, such approval is not necessary. Performed By: #### I ONC1 ####[id number] [place] [address] CBC AND DIFFERENTIALon 08-19 % AUTOMATED IMMATURE GRAN 1.0 % High 0.0 - 0.9 [facility] Comment on above: Result Comment: Nicki ture Granulocyte Count (IG) includes promyelocytes, myelocytes and metamyelocytes but does not include bands. Percent differential counts (%) should be interpreted in the context of the absolute cell counts (cells/L). Performed By: #### C BCDF ####[id number] [place] [address] Basophils (Bld) [#/Vol] 0.06 10*3/uL Normal 0.00 - 0.10 [facility] Comment on above: Performed By: #### C BCDF ####[id number] [place] [address] Basophils/100 WBC (Bld) 0.3 % Normal 0.0 - 2.0 [facility] Comment on above: Performed By: #### C BCDF ####[id number] [place] [address] Eosinophils (Bld) [#/Vol] 0.02 10*3/uL Normal 0.00 - 0.70 [facility] Comment on above: Performed By: #### C BCDF ####[id number] [place] [address] Eosinophils/100 WBC (Bld) 0.1 % Normal 0.0 - 6.0 [facility] Comment on above: Performed By: #### C BCDF ####[id number] [place] [address] Erythrocyte distribution width (RBC) [Ratio] 13.7 % Normal 11.5 - 14.5 [facility] Comment on above: Performed By: #### C BCDF ####[id number] [place] [address] Hematocrit (Bld) [Volume fraction] 30.7 % Low 41.0 - 52.0 [facility] Comment on above: Performed By: #### C BCDF ####[id number] [place] [address] Hemoglobin (Bld) [Mass/Vol] 10.5 g/dL Low 13.5 - 17.5 [facility] Comment on above: Performed By: #### C BCDF ####[id number] [place] [address] Lymphocytes (Bld) [#/Vol] 1.15 10*3/uL Low 1.20 - 4.80 [facility] Comment on above: Performed By: #### C BCDF ####[id number] [place] [address] Lymphocytes/100 WBC (Bld) 5.8 % Normal 13.0 - 44.0 [facility] Comment on above: Performed By: #### C BCDF ####[id number] [place] [address] MCHC (RBC) [Mass/Vol] 34.2 g/dL Normal 32.0 - 36.0 [facility] Comment on above: Performed By: #### C BCDF ####[id number] [place] [address] MCV (RBC) [Entitic vol] 94 fL Normal 80 - 100 [facility] Comment on above: Performed By: #### C BCDF ####[id number] [place] [address] Monocytes (Bld) [#/Vol] 1.34 10*3/uL High 0.10 - 1.00 [facility] Comment on above: Performed By: #### C BCDF ####[id number] [place] [address] Monocytes/100 WBC (Bld) 6.7 % Normal 2.0 - 10.0 [facility] Comment on above: Performed By: #### C BCDF ####[id number] [place] [address] Neutrophils (Bld) [#/Vol] 17.10 10*3/uL High 1.20 - 7.70 [facility] Comment on above: Performed By: #### C BCDF ####[id number] [place] [address] Neutrophils/100 WBC (Bld) 86.1 % Normal 40.0 - 80.0 [facility] Comment on above: Performed By: #### C BCDF ####[id number] [place] [address] NUCLEATED RBC 0.0 /100 WBC Normal 0.0-0.0 [facility] Comment on above: Performed By: #### C BCDF ####[id number] [place] [address] Platelets (Bld) [#/Vol] 182 10*3/uL Normal 150 - 450 [facility] Comment on above: Performed By: #### C BCDF ####[id number] [place] [address] RBC 3.28 x10E12/L Low 4.50 - 5.90 [facility] Comment on above: Performed By: #### C BCDF ####[id number] [place] [address] WBC (Bld) [#/Vol] 19.9 10*3/uL High 4.4 - 11.3 [facility] Comment on above: Performed By: #### C BCDF ####[id number] [place] [address] % AUTOMATED IMMATURE GRAN 1.3 % High 0.0 - 0.9 [facility] Comment on above: Result Comment: Nicki ture Granulocyte Count (IG) includes promyelocytes, myelocytes and metamyelocytes but does not include bands. Percent differential counts (%) should be interpreted in the context of the absolute cell counts (cells/L). Performed By: #### C BCDF ####[id number] [place] [address] Basophils (Bld) [#/Vol] 0.04 10*3/uL Normal 0.00 - 0.10 [facility] Comment on above: Performed By: #### C BCDF ####[id number] [place] [address] Basophils/100 WBC (Bld) 0.2 % Normal 0.0 - 2.0 [facility] Comment on above: Performed By: #### C BCDF ####[id number] [place] [address] Eosinophils (Bld) [#/Vol] 0.00 10*3/uL Normal 0.00 - 0.70 [facility] Comment on above: Performed By: #### C BCDF ####[id number] [place] [address] Eosinophils/100 WBC (Bld) 0.0 % Normal 0.0 - 6.0 [facility] Comment on above: Performed By: #### C BCDF ####[id number] [place] [address] Erythrocyte distribution width (RBC) [Ratio] 13.4 % Normal 11.5 - 14.5 [facility] Comment on above: Performed By: #### C BCDF ####[id number] [place] [address] Hematocrit (Bld) [Volume fraction] 30.7 % Low 41.0 - 52.0 [facility] Comment on above: Performed By: #### C BCDF ####[id number] [place] [address] Hemoglobin (Bld) [Mass/Vol] 10.0 g/dL Low 13.5 - 17.5 [facility] Comment on above: Performed By: #### C BCDF ####[id number] [place] [address] Lymphocytes (Bld) [#/Vol] 0.81 10*3/uL Low 1.20 - 4.80 [facility] Comment on above: Performed By: #### C BCDF ####[id number] [place] [address] Lymphocytes/100 WBC (Bld) 3.4 % Normal 13.0 - 44.0 [facility] Comment on above: Performed By: #### C BCDF ####[id number] [place] [address] MCHC (RBC) [Mass/Vol] 32.6 g/dL Normal 32.0 - 36.0 [facility] Comment on above: Performed By: #### C BCDF ####[id number] [place] [address] MCV (RBC) [Entitic vol] 97 fL Normal 80 - 100 [facility] Comment on above: Performed By: #### C BCDF ####[id number] [place] [address] Monocytes (Bld) [#/Vol] 0.75 10*3/uL Normal 0.10 - 1.00 [facility] Comment on above: Performed By: #### C BCDF ####[id number] [place] [address] Monocytes/100 WBC (Bld) 3.1 % Normal 2.0 - 10.0 [facility] Comment on above: Performed By: #### C BCDF ####[id number] [place] [address] Neutrophils (Bld) [#/Vol] 22.12 10*3/uL High 1.20 - 7.70 [facility] Comment on above: Performed By: #### C BCDF ####[id number] [place] [address] Neutrophils/100 WBC (Bld) 92.0 % Normal 40.0 - 80.0 [facility] Comment on above: Performed By: #### C BCDF ####[id number] [place] [address] NUCLEATED RBC 0.0 /100 WBC Normal 0.0-0.0 [facility] Comment on above: Performed By: #### C BCDF ####[id number] [place] [address] Platelets (Bld) [#/Vol] 194 10*3/uL Normal 150 - 450 [facility] Comment on above: Performed By: #### C BCDF ####[id number] [place] [address] RBC 3.16 x10E12/L Low 4.50 - 5.90 [facility] Comment on above: Performed By: #### C BCDF ####[id number] [place] [address] WBC (Bld) [#/Vol] 24.0 10*3/uL High 4.4 - 11.3 [facility] Comment on above: Performed By: #### C BCDF ####[id number] [place] [address] COAGULATION SCREENon 023 aPTT Coag (Bld) [Time] 28 s Normal 27 - 38 [facility] Comment on above: Result Comment: Note new reference range as of 08/02/2022 at 10:00am. Performed By: #### C OAGS ####[id number] [place] [address] PT Coag (PPP) [Time] 15.4 s High 9.8 - 12.8 [facility] Comment on above: Result Comment: Note new reference range as of 08/02/2022 at 10:00am. Performed By: #### C OAGS ####[id number] [place] [address] PT, INR 1.4 High 0.9 - 1.1 [facility] Comment on above: Performed By: #### C OAGS ####[id number] [place] [address] Cult, Bloodon 08-19-2022 Bacteria identified Cx Nom (Bld) [facility] Work Phone: Bacteria identified Cx Nom (Bld) [facility] Work Phone: Cult, Resp. Lower + smearon 08-19-2022 Bacteria identified Respiratory culture Nom (Unsp spec) [facility] Work Phone: Cult, Urineon 08-19-2022 Bacteria identified Cx Nom (U) [facility] Work Phone: Daily Progress Note - Critic al Care-CTICUon 08-19-2022 Daily Progress Note - Critical Care-CTICU Normal [facility] EMR ADDONon 08-19-2022 ADDON CONFIRMATION REQUEST REC'D Normal [facility] Comment on above: Performed By: #### E MRAD ####NO LOCATION NEEDED GLUCOSE-POCTon 08-19-2022 Glucose [Mass/Vol] 149 mg/dL High 74 - 99 [facility] Comment on above: Performed By: #### G EDI ####[id number] [place] [address] Glucose [Mass/Vol] 127 mg/dL High 74 - 99 [facility] Comment on above: Performed By: #### G EDI ####[id number] [place] [address] Glucose [Mass/Vol] 95 mg/dL Normal 74 - 99 [facility] Comment on above: Performed By: #### G EDI ####[id number] [place] [address] Glucose [Mass/Vol] 96 mg/dL Normal 74 - 99 [facility] Comment on above: Performed By: #### G EDI ####[id number] [place] [address] Glucose [Mass/Vol] 146 mg/dL High 74 - 99 [facility] Comment on above: Performed By: #### G EDI ####[id number] [place] [address] Glucose [Mass/Vol] 232 mg/dL High 74 - 99 [facility] Comment on above: Performed By: #### G EDI ####[id number] [place] [address] Glucose [Mass/Vol] 282 mg/dL High 74 - 99 [facility] Comment on above: Performed By: #### G EDI ####[id number] [place] [address] Glucose [Mass/Vol] 268 mg/dL High 74 - [address] [place] [address] Comment on above: Performed By: #### G EDI ####[id number] [place] [address] Glucose [Mass/Vol] 287 mg/dL High 74 - 99 [facility] Comment on above: Performed By: #### G EDI ####[id number] [place] [address] Glucose [Mass/Vol] 290 mg/dL High 74 - 99 [facility] [facility] Comment on above: Performed By: #### G EDI ####[id number] [place] [address] Glucose [Mass/Vol] 284 mg/dL High 74 - 99 [facility] Comment on above: Performed By: #### G EDI ####[id number] [place] [address] LIPID PANEL (CORONARY RISK 2 )on 08-19-2022 Cholesterol [Mass/Vol] 66 mg/dL Normal 0 - 199 [facility] Comment on above: Result Comment: . AG E DESIRABLE BORDERLINE HIGH HIGH 0-19 Y 0 - 169 170 - 199 >/= 200 20-24 Y 0 - 189 190 - 224 >/= 225 >24 Y 0 - 199 200 - 239 >/= 240 All ranges are based on fasting samples. Specific therapeutic targets will vary based on patient-specific cardiac risk.. Pediatric guidelines reference:Pediatrics 2011, 128(S5). Adult guidelines reference: NCEP ATPIII Guidelines, NIRANJAN 2001, 258:2486-97. Venipuncture immediately after or during the administration of Metamizole may lead to falsely low results. Testing should be performed immediately prior to Metamizole dosing. Performed By: #### L IPID ####[id number] [place] [address] Cholesterol in HDL [Mass/Vol] 22.4 mg/dL Abnormal [facility] Comment on above: Result Comment: . AG E VERY LOW LOW NORMAL HIGH 0-19 Y < 35 < 40 40-45 ---- 20-24 Y ---- < 40 >45 ---- >24 Y ---- < 40 40-60 >60. Performed By: #### L IPID ####[id number] [place] [address] Cholesterol in LDL [Mass/Vol] 31 mg/dL Normal 0 - 99 [facility] Comment on above: Result Comment: . NE CHAPARRO BA AGE DESIRABLE OPTIMAL HIGH HIGH VERY HIGH 0-19 Y 0 - 109 --- 110-129 >/= 130 ---- 20-24 Y 0 - 119 --- 120-159 >/= 160 ---- >24 Y 0 - 99 100-129 130-159 160-189 >/=190. Performed By: #### L IPID ####[id number] [place] [address] Cholesterol in VLDL [Mass/Vol] 13 mg/dL Normal 0 - 40 [facility] Comment on above: Performed By: #### L IPID ####[id number] [place] [address] Cholesterol.total/Chol esterol in HDL [Mass ratio] 2.9 {ratio} Normal [facility] Comment on above: Result Comment: REF VALUESDESIRABLE < 3.4HIGH RISK > 5.0 Performed By: #### L IPID ####[id number] [place] [address] Triglyceride [Mass/Vol] 64 mg/dL Normal 0 - 149 [facility] Comment on above: Result Comment: . AG E DESIRABLE BORDERLINE HIGH HIGH VERY HIGH 0 D-90 D 19 - 174 ---- ---- ----91 D- 9 Y 0 - 74 75 - 99 >/= 100 ---- 10-19 Y 0 - 89 90 - 129 >/= 130 ---- 20-24 Y 0 - 114 115 - 149 >/= 150 ---- >24 Y 0 - 149 150 - 199 200- 499 >/= 500. Venipuncture immediately after or during the administration of Metamizole may lead to falsely low results. Testing should be performed immediately prior to Metamizole dosing. Performed By: #### L IPID ####[id number] [place] [address] MAGNESIUMon 08-19-2022 Magnesium [Mass/Vol] 2.15 mg/dL Normal 1.60 - 2.40 [facility] Comment on above: Performed By: #### M G ####[id number] [place] [address] Magnesium [Mass/Vol] 2.41 mg/dL High 1.60 - 2.40 [facility] Comment on above: Performed By: #### M G ####[id number] [place] [address] Nutrition Therapy-Assessment on 08-19-2022 Nutrition Therapy-Assessment Normal [facility] RENAL FUNCTION PANELon 08-19 Albumin [Mass/Vol] 3.5 g/dL Normal 3.4 - 5.0 [facility] Comment on above: Performed By: #### R ENAL ####[id number] [place] [address] Anion gap [Moles/Vol] 13 mmol/L Normal 10 - 20 [facility] Comment on above: Performed By: #### R ENAL ####[id number] [place] [address] Calcium [Mass/Vol] 8.5 mg/dL Low 8.6 - 10.6 [facility] Comment on above: Performed By: #### R ENAL ####[id number] [place] [address] Chloride [Moles/Vol] 102 mmol/L Normal 98 - 107 [facility] Comment on above: Performed By: #### R ENAL ####[id number] [place] [address] Creatinine [Mass/Vol] 1.95 mg/dL High 0.50 - 1.30 [facility] Comment on above: Performed By: #### R ENAL ####[id number] [place] [address] GFR/1.73 sq M.predicted among non-blacks MDRD (S/P/Bld) [Vol rate/Area] 43 mL/min/{1.73_m2} Abnormal >90 [facility] Comment on above: Result Comment: CALC ULATIONS OF ESTIMATED GFR ARE PERFORMED USING THE 2020 CKD-EPI STUDY REFIT EQUATION WITHOUT THE RACE VARIABLE FOR THE IDMS-TRACEABLE CREATININE METHODS.https://jasn.asnjournals.org/content/early/A SN.9724720888 Performed By: #### R ENAL ####[id number] [place] [address] Glucose [Mass/Vol] 137 mg/dL High 74 - 99 [facility] Comment on above: Performed By: #### R ENAL ####[id number] [place] [address] HCO3 (Bld) [Moles/Vol] 29 mmol/L Normal 21 - 32 [facility] Comment on above: Performed By: #### R ENAL ####[id number] [place] [address] Phosphate [Mass/Vol] 5.7 mg/dL High 2.5 - 4.9 [facility] Comment on above: Result Comment: The performance characteristics of phosphorus testing in heparinized plasma have been validated by the individual laboratory site where testing is performed. Testing on heparinized plasma is not approved by the FDA; however, such approval is not necessary. Performed By: #### R ENAL ####[id number] [place] [address] Potassium [Moles/Vol] 5.2 mmol/L Normal 3.5 - 5.3 [facility] Comment on above: Performed By: #### R ENAL ####[id number] [place] [address] Sodium [Moles/Vol] 139 mmol/L Normal 136 - 145 [facility] Comment on above: Performed By: #### R ENAL ####[id number] [place] [address] Urea nitrogen [Mass/Vol] 21 mg/dL Normal 6 - 23 [facility] Comment on above: Performed By: #### R ENAL ####[id number] [place] [address] Albumin [Mass/Vol] 3.9 g/dL Normal 3.4 - 5.0 [facility] Comment on above: Performed By: #### R ENAL ####[id number] [place] [address] Anion gap [Moles/Vol] 24 mmol/L High 10 - 20 [facility] Comment on above: Performed By: #### R ENAL ####[id number] [place] [address] Calcium [Mass/Vol] 8.6 mg/dL Normal 8.6 - 10.6 [facility] Comment on above: Performed By: #### R ENAL ####[id number] [place] [address] Chloride [Moles/Vol] 100 mmol/L Normal 98 - 107 [facility] Comment on above: Performed By: #### R ENAL ####[id number] [place] [address] Creatinine [Mass/Vol] 1.94 mg/dL High 0.50 - 1.30 [facility] Comment on above: Performed By: #### R ENAL ####[id number] [place] [address] GFR/1.73 sq M.predicted among non-blacks MDRD (S/P/Bld) [Vol rate/Area] 43 mL/min/{1.73_m2} Abnormal >90 [facility] Comment on above: Result Comment: CALC ULATIONS OF ESTIMATED GFR ARE PERFORMED USING THE 2020 CKD-EPI STUDY REFIT EQUATION WITHOUT THE RACE VARIABLE FOR THE IDMS-TRACEABLE CREATININE METHODS.https://jasn.asnjournals.org/content//A SN.9681043897 Performed By: #### R ENAL ####[id number] [place] [address] Glucose [Mass/Vol] 321 mg/dL High 74 - 99 [facility] Comment on above: Performed By: #### R ENAL ####[id number] [place] [address] HCO3 (Bld) [Moles/Vol] 18 mmol/L Low 21 - 32 [facility] Comment on above: Performed By: #### R ENAL ####[id number] [place] [address] Phosphate [Mass/Vol] 3.8 mg/dL Normal 2.5 - 4.9 [facility] Comment on above: Result Comment: The performance characteristics of phosphorus testing in heparinized plasma have been validated by the individual laboratory site where testing is performed. Testing on heparinized plasma is not approved by the FDA; however, such approval is not necessary. Performed By: #### R ENAL ####[id number] [place] [address] Potassium [Moles/Vol] 4.6 mmol/L Normal 3.5 - 5.3 [facility] Comment on above: Performed By: #### R ENAL ####[id number] [place] [address] Sodium [Moles/Vol] 137 mmol/L Normal 136 - 145 [facility] Comment on above: Performed By: #### R ENAL ####[id number] [place] [address] Urea nitrogen [Mass/Vol] 21 mg/dL Normal 6 - 23 [facility] Comment on above: Performed By: #### R ENAL ####[id number] [place] [address] RESPIRATORY CULT./SM,LOWERon 07-07-2023 RESPIRATORY CULT./SM,LOWER Normal [facility] Comment on above: Performed By: #### R ESPL ####[id number] [place] [address] TH CHEST 1 VIEWon 08-19-2022 TH CHEST 1 VIEW Normal [facility] TH CHEST 1 VIEW Normal [facility] UA MICROSCOPICon 08-19-2022 BACTERIA 1+ /HPF Abnormal [facility] Comment on above: Performed By: #### U AMIC ####[id number] [place] [address] HYALINE CAST 2+ /LPF Abnormal [facility] Comment on above: Performed By: #### U AMIC ####[id number] [place] [address] Mucus Ql (Urine sed) 1+ /LPF Normal [facility] Comment on above: Performed By: #### U AMIC ####[id number] [place] [address] RBC 13 /HPF Abnormal 0-5 [facility] Comment on above: Performed By: #### U AMIC ####[id number] [place] [address] SQUAMOUS EPITH. CELLS 1 /HPF Normal [facility] Comment on above: Performed By: #### U AMIC ####[id number] [place] [address] WBC 29 /HPF Abnormal 0-5 [facility] Comment on above: Performed By: #### U AMIC ####[id number] [place] [address] Lab Specimen Source Normal [facility] Comment on above: Performed By: #### U AMIC ####[id number] [place] [address] Performed By: #### U ARFX ####[id number] [place] [address] URINALYSIS WITH CULTURE IF I NDICATEDon 08-19-2022 Bilirubin Ql (U) Negative Normal NEGATIVE [facility] Comment on above: Performed By: #### U ARFX ####[id number] [place] [address] Glucose Ql (U) Negative Normal NEGATIVE [facility] Comment on above: Performed By: #### U ARFX ####[id number] [place] [address] Hemoglobin Ql (U) MODERATE (2+) Abnormal NEGATIVE [facility] Comment on above: Performed By: #### U ARFX ####[id number] [place] [address] Ketones Ql (U) Negative Normal NEGATIVE [facility] Comment on above: Performed By: #### U ARFX ####[id number] [place] [address] Leukocyte esterase Test strip Ql (U) Negative Normal NEGATIVE [facility] Comment on above: Performed By: #### U ARFX ####[id number] [place] [address] Nitrite Ql (U) Negative Normal NEGATIVE [facility] Comment on above: Performed By: #### U ARFX ####[id number] [place] [address] pH (U) 6.0 [pH] Normal 5.0 - 8.0 [facility] Comment on above: Performed By: #### U ARFX ####[id number] [place] [address] Protein Ql (U) 100 (2+) Abnormal NEGATIVE [facility] Comment on above: Performed By: #### U ARFX ####[id number] [place] [address] Specific gravity (U) [Rel density] 1.018 Normal 1.005 - 1.035 [facility] Comment on above: Performed By: #### U ARFX ####[id number] [place] [address] Urobilinogen (U) [Mass/Vol] mg/dL Normal 0.0 - 1.9 [facility] Comment on above: Performed By: #### U ARFX ####[id number] [place] [address] Appearance (U) HAZY Normal CLEAR [facility] Comment on above: Performed By: #### U ARFX ####[id number] [place] [address] Color (U) RED Normal STRAW,YELLOW [facility] Comment on above: Performed By: #### U ARFX ####[id number] [place] [address] URINE CULTURE,BACTERIALon URINE CULTURE,BACTERIAL Normal [facility] Comment on above: Performed By: #### U RINC ####[id number] [place] [address] VENOUS FULL PANELon 08-20-19 23 Anion gap [Moles/Vol] 14 mmol/L Normal 10 - 25 [facility] Comment on above: Order Comment: Barbosa d- RB to PAM BOUCHAHINE, 08/19/2022 04:20 Performed By: #### V FPA4 ####[id number] [id number] BASE EXCESS-BLOOD -0.4 mmol/L Normal -2.0 - 3.0 [facility] Comment on above: Order Comment: Barbosa d- RB to PAM BOUCHAHINE, 08/19/2022 04:20 Performed By: #### V FPA4 ####[id number] [id number] BICARB, CALCULATED 24.1 mmol/L Normal 22.0 - 26.0 [facility] Comment on above: Order Comment: Barbosa d- RB to PAM BOUCHAHINE, 08/19/2022 04:20 Performed By: #### V FPA4 ####[id number] [id number] CALCIUM,IONIZED 1.14 mmol/L Normal 1.10 - 1.33 [facility], [place] Comment on above: Order Comment: Barbosa d- RB to PAM BOUCHAHINE, 08/19/2022 04:20 Performed By: #### V FPA4 ####[id number] [place] [address] Chloride [Moles/Vol] 103 mmol/L Normal 98 - 107 [facility] Comment on above: Order Comment: Barbosa d- RB to PAM BOUCHAHINE, 08/19/2022 04:20 Performed By: #### V FPA4 ####[id number] [place] [address] Glucose [Mass/Vol] 294 mg/dL High 74 - 99 [facility] Comment on above: Order Comment: Barbosa d- RB to PAM BOUCHAHINE, 08/19/2022 04:20 Performed By: #### V FPA4 ####[id number] [place] [address] Hematocrit (Bld) [Volume fraction] 32.0 % Low 41.0 - 52.0 [facility] Comment on above: Order Comment: Barbosa d- RB to PAM BOUCHAHINE, 08/19/2022 04:20 Performed By: #### V FPA4 ####[id number] [place] [address] Hemoglobin (Bld) [Mass/Vol] 10.6 g/dL Low 13.5 - 17.5 [facility] Comment on above: Order Comment: Barbosa d- RB to PAM BOUCHAHINE, 08/19/2022 04:20 Performed By: #### V FPA4 ####[id number] [place] [address] Lactate [Moles/Vol] 5.1 mmol/L Critically high 0.4 - 2.0 [facility] Comment on above: Order Comment: Barbosa d- RB to PAM BOUCHAHINE, 08/19/2022 04:20 Result Comment: Call ed- RB to PAM BOUCHAHINE, 08/19/2022 04:20 Performed By: #### V FPA4 ####[id number] [place] [address] OXY HGB 78.1 % High 45.0 - 75.0 [facility] Comment on above: Order Comment: Barbosa d- RB to PAM BOUCHAHINE, 08/19/2022 04:20 Performed By: #### V FPA4 ####[id number] [place] [address] Oxygen (Bld) [Partial pressure] 49 mm[Hg] High 35 - 45 [facility] Comment on above: Order Comment: Barbosa d- RB to PAM BOUCHAHINE, 08/19/2022 04:20 Performed By: #### V FPA4 ####[id number] [place] [address] PATIENT TEMPERATURE 37.0 degrees C Normal [facility] Comment on above: Order Comment: Barbosa d- RB to PAM BOUCHAHINE, 08/19/2022 04:20 Result Comment: NOTE : PATIENT RESULTS ARE NOT CORRECTED FOR TEMPERATURE. Performed By: #### V FPA4 ####[id number] [place] [address] PCO2 38 mmHg Low 41 - 51 [facility] Comment on above: Order Comment: Barbosa d- RB to PAM BOUCHAHINE, 08/19/2022 04:20 Performed By: #### V FPA4 ####[id number] [place] [address] pH (Bld) 7.41 [pH] Normal 7.33 - 7.43 [facility] Comment on above: Order Comment: Barbosa d- RB to PAM BOUCHAHINE, 08/19/2022 04:20 Performed By: #### V FPA4 ####[id number] [place] [address] Potassium [Moles/Vol] 4.6 mmol/L Normal 3.5 - 5.3 [facility] Comment on above: Order Comment: Barbosa d- RB to PAM BOUCHAHINE, 08/19/2022 04:20 Performed By: #### V FPA4 ####[id number] [place] [address] SO2 80 % High 45 - 75 [facility] Comment on above: Order Comment: Barbosa d- RB to PAM BOUCHAHINE, 08/19/2022 04:20 Performed By: #### V FPA4 ####[id number] [place] [address] Sodium [Moles/Vol] 136 mmol/L Normal 136 - 145 [facility] Comment on above: Order Comment: Barbosa d- RB to PAM MACIEL, 08/19/2022 04:20 Performed By: #### V FPA4 ####[id number] [place] [address] Anion gap [Moles/Vol] 19 mmol/L Normal 10 - 25 [facility] Comment on above: Order Comment: Barbosa d- RB to TERE MONTENEGROI, 08/19/2022 00:40 Performed By: #### V FPA4 ####[id number] [place] [address] BASE EXCESS-BLOOD -5.7 mmol/L Low -2.0 - 3.0 [facility] Comment on above: Order Comment: Barbosa d- RB to TERE MONTENEGROI, 08/19/2022 00:40 Performed By: #### V FPA4 ####[id number] [place] [address] BICARB, CALCULATED 20.1 mmol/L Low 22.0 - 26.0 [facility] Comment on above: Order Comment: Barbosa d- RB to TERE CONTRERASTANI, 08/19/2022 00:40 Performed By: #### V FPA4 ####[id number] [place] [address] CALCIUM,IONIZED 1.18 mmol/L Normal 1.10 - 1.33 [facility], [place] Comment on above: Order Comment: Barbosa d- RB to SAMEAM SHAHZOËTANI, 08/19/2022 00:40 Performed By: #### V FPA4 ####[id number] [place] [address] Chloride [Moles/Vol] 102 mmol/L Normal 98 - 107 [facility] Comment on above: Order Comment: Barbosa d- RB to SAMEAM SHAHZOËTANI, 08/19/2022 00:40 Performed By: #### V FPA4 ####[id number] [place] [address] Glucose [Mass/Vol] 348 mg/dL High 74 - 99 [facility] Comment on above: Order Comment: Barbosa d- RB to TERE ISLAS, 08/19/2022 00:40 Performed By: #### V FPA4 ####[id number] [place] [address] Hematocrit (Bld) [Volume fraction] 27.0 % Low 41.0 - 52.0 [facility] Comment on above: Order Comment: Barbosa d- RB to TERE ISLAS, 08/19/2022 00:40 Performed By: #### V FPA4 ####[id number] [place] [address] Hemoglobin (Bld) [Mass/Vol] 9.1 g/dL Low 13.5 - 17.5 [facility] Comment on above: Order Comment: Barbosa d- RB to TERE ISLAS, 08/19/2022 00:40 Performed By: #### V FPA4 ####[id number] [place] [address] Lactate [Moles/Vol] 10.0 mmol/L Critically high 0.4 - 2.0 [facility] Comment on above: Order Comment: Barbosa d- RB to TERE ISLAS, 08/19/2022 00:40 Result Comment: Call ed- RB to TERE ISLAS, 08/19/2022 00:40 Performed By: #### V FPA4 ####[id number] [place] [address] OXY HGB 65.0 % Normal 45.0 - 75.0 [facility] Comment on above: Order Comment: Barbosa d- RB to TERE ISLAS, 08/19/2022 00:40 Performed By: #### V FPA4 ####[id number] [place] [address] Oxygen (Bld) [Partial pressure] 42 mm[Hg] Normal 35 - 45 [facility] Comment on above: Order Comment: Barbosa d- RB to SAMEJACKELINE CNOTRERASTANI, 08/19/2022 00:40 Performed By: #### V FPA4 ####[id number] [place] [address] PATIENT TEMPERATURE 37.0 degrees C Normal [facility] Comment on above: Order Comment: Barbosa d- RB to SAMEJACKELINE CONTRERASTANI, 08/19/2022 00:40 Result Comment: NOTE : PATIENT RESULTS ARE NOT CORRECTED FOR TEMPERATURE. Performed By: #### V FPA4 ####[id number] [place] [address] PCO2 40 mmHg Low 41 - 51 [facility] Comment on above: Order Comment: Barbosa d- RB to SAMEJACKELINE CONTRERASTANI, 08/19/2022 00:40 Performed By: #### V FPA4 ####[id number] [place] [address] pH (Bld) 7.31 [pH] Low 7.33 - 7.43 [facility] Comment on above: Order Comment: Barbosa d- RB to SAMEJACKELINE CONTRERASTANI, 08/19/2022 00:40 Performed By: #### V FPA4 ####[id number] [place] [address] Potassium [Moles/Vol] 4.7 mmol/L Normal 3.5 - 5.3 [facility] Comment on above: Order Comment: Barbosa d- RB to SAMEAM BENTANI, 08/19/2022 00:40 Performed By: #### V FPA4 ####[id number] [place] [address] SO2 67 % Normal 45 - 75 [facility] Comment on above: Order Comment: Barbosa d- RB to SAMEAM SHAHZOËTANI, 08/19/2022 00:40 Performed By: #### V FPA4 ####[id number] [place] [address] Sodium [Moles/Vol] 136 mmol/L Normal 136 - 145 [facility] Comment on above: Order Comment: Barbosa d- RB to SAMEAM SHAHZOËTANI, 08/19/2022 00:40 Performed By: #### V FPA4 ####[id number] [place] [address] ACT-HIGH RANGEon 08-18-2022 ACT-HIGH RANGE 106 SECONDS Normal 96 - 152 [facility] Comment on above: Result Comment: Note new reference range as of 2018. Target ACT range will vary based on the patient population, clinical status, and surgical intervention occurring. Performed By: #### A CTP ####[id number] [place] [address] ACT-HIGH RANGE 455 SECONDS High 96 - 152 [facility] Comment on above: Result Comment: Note new reference range as of 2018. Target ACT range will vary based on the patient population, clinical status, and surgical intervention occurring. Performed By: #### A CTP ####[id number] [place] [address] ACT-HIGH RANGE 457 SECONDS High 96 - 152 [facility] Comment on above: Result Comment: Note new reference range as of 2018. Target ACT range will vary based on the patient population, clinical status, and surgical intervention occurring. Performed By: #### A CTP ####[id number] [place] [address] ACT-HIGH RANGE 412 SECONDS High 96 - 152 [facility] Comment on above: Result Comment: Note new reference range as of 2018. Target ACT range will vary based on the patient population, clinical status, and surgical intervention occurring. Performed By: #### A CTP ####[id number] [place] [address] ACT-HIGH RANGE 435 SECONDS High 96 - 152 [facility] Comment on above: Result Comment: Note new reference range as of 2018. Target ACT range will vary based on the patient population, clinical status, and surgical intervention occurring. Performed By: #### A CTP ####[id number] [place] [address] ACT-HIGH RANGE 399 SECONDS High 96 - 152 [facility] Comment on above: Result Comment: Note new reference range as of 2018. Target ACT range will vary based on the patient population, clinical status, and surgical intervention occurring. Performed By: #### A CTP ####[id number] [place] [address] ACT-HIGH RANGE 407 SECONDS High 96 - 152 [facility] Comment on above: Result Comment: Note new reference range as of 2018. Target ACT range will vary based on the patient population, clinical status, and surgical intervention occurring. Performed By: #### A CTP ####[id number] [place] [address] ACT-HIGH RANGE 103 SECONDS Normal 96 - 152 [facility] Comment on above: Result Comment: Note new reference range as of 2018. Target ACT range will vary based on the patient population, clinical status, and surgical intervention occurring. Performed By: #### A CTP ####[id number] [id number] ARTERIAL BLOOD GASon 023 APPARATUS Canceled Normal [facility] Comment on above: Order Comment: TEST ARTERIAL BLOOD GAS WAS CANCELLED, 08/18/2022 15:29 SAMPLE UNSUITABLE FORTESTING. SYRINGE NOT PROPERLY CAPPED AND EXPOSED TO AIR.. Performed By: #### B LGA2 ####[id number] [place] [address] BASE EXCESS-BLOOD Canceled Normal -2.0 - 3.0 [facility], [place] Comment on above: Order Comment: TEST ARTERIAL BLOOD GAS WAS CANCELLED, 08/18/2022 15:29 SAMPLE UNSUITABLE FORTESTING. SYRINGE NOT PROPERLY CAPPED AND EXPOSED TO AIR.. Performed By: #### B LGA2 ####[id number] [place] [address] BICARB, CALCULATED Canceled Normal 22.0 - 26.0 [facility] Comment on above: Order Comment: TEST ARTERIAL BLOOD GAS WAS CANCELLED, 08/18/2022 15:29 SAMPLE UNSUITABLE FORTESTING. SYRINGE NOT PROPERLY CAPPED AND EXPOSED TO AIR.. Performed By: #### B LGA2 ####[id number] [place] [address] CPAP Canceled Normal [facility] Comment on above: Order Comment: TEST ARTERIAL BLOOD GAS WAS CANCELLED, 08/18/2022 15:29 SAMPLE UNSUITABLE FORTESTING. SYRINGE NOT PROPERLY CAPPED AND EXPOSED TO AIR.. Performed By: #### B LGA2 ####[id number] [place] [address] EPAP CMH2O Canceled Normal [facility] Comment on above: Order Comment: TEST ARTERIAL BLOOD GAS WAS CANCELLED, 08/18/2022 15:29 SAMPLE UNSUITABLE FORTESTING. SYRINGE NOT PROPERLY CAPPED AND EXPOSED TO AIR.. Performed By: #### B LGA2 ####[id number] [place] [address] FIO2 Canceled Normal [facility] Comment on above: Order Comment: TEST ARTERIAL BLOOD GAS WAS CANCELLED, 08/18/2022 15:29 SAMPLE UNSUITABLE FORTESTING. SYRINGE NOT PROPERLY CAPPED AND EXPOSED TO AIR.. Performed By: #### B LGA2 ####[id number] [place] [address] FLOW Canceled Normal [facility] Comment on above: Order Comment: TEST ARTERIAL BLOOD GAS WAS CANCELLED, 08/18/2022 15:29 SAMPLE UNSUITABLE FORTESTING. SYRINGE NOT PROPERLY CAPPED AND EXPOSED TO AIR.. Performed By: #### B LGA2 ####[id number] [place] [address] FREQUENCY (BPM) Canceled Normal [facility] Comment on above: Order Comment: TEST ARTERIAL BLOOD GAS WAS CANCELLED, 08/18/2022 15:29 SAMPLE UNSUITABLE FORTESTING. SYRINGE NOT PROPERLY CAPPED AND EXPOSED TO AIR.. Performed By: #### B LGA2 ####[id number] [place] [address] HIGH PEEP CMH2O Canceled Normal [facility] Comment on above: Order Comment: TEST ARTERIAL BLOOD GAS WAS CANCELLED, 08/18/2022 15:29 SAMPLE UNSUITABLE FORTESTING. SYRINGE NOT PROPERLY CAPPED AND EXPOSED TO AIR.. Performed By: #### B LGA2 ####[id number] [place] [address] INSPIRATORY TIME Canceled Normal [facility] Comment on above: Order Comment: TEST ARTERIAL BLOOD GAS WAS CANCELLED, 08/18/2022 15:29 SAMPLE UNSUITABLE FORTESTING. SYRINGE NOT PROPERLY CAPPED AND EXPOSED TO AIR.. Performed By: #### B LGA2 ####[id number] [id number] INSPIRATORY/EXPIRATORY RATIO Canceled Normal [facility] Comment on above: Order Comment: TEST ARTERIAL BLOOD GAS WAS CANCELLED, 08/18/2022 15:29 SAMPLE UNSUITABLE FORTESTING. SYRINGE NOT PROPERLY CAPPED AND EXPOSED TO AIR.. Performed By: #### B LGA2 ####[id number] [id number] IPAP CMH2O Canceled Normal [facility] Comment on above: Order Comment: TEST ARTERIAL BLOOD GAS WAS CANCELLED, 08/18/2022 15:29 SAMPLE UNSUITABLE FORTESTING. SYRINGE NOT PROPERLY CAPPED AND EXPOSED TO AIR.. Performed By: #### B LGA2 ####[id number] [place] [address] LOW PEEP CMH2O Canceled Normal [facility] Comment on above: Order Comment: TEST ARTERIAL BLOOD GAS WAS CANCELLED, 08/18/2022 15:29 SAMPLE UNSUITABLE FORTESTING. SYRINGE NOT PROPERLY CAPPED AND EXPOSED TO AIR.. Performed By: #### B LGA2 ####[id number] [id number] OXY HGB Canceled Normal [facility] Comment on above: Order Comment: TEST ARTERIAL BLOOD GAS WAS CANCELLED, 08/18/2022 15:29 SAMPLE UNSUITABLE FORTESTING. SYRINGE NOT PROPERLY CAPPED AND EXPOSED TO AIR.. Performed By: #### B LGA2 ####[id number] [id number] PATIENT TEMPERATURE Canceled Normal [facility] Comment on above: Order Comment: TEST ARTERIAL BLOOD GAS WAS CANCELLED, 08/18/2022 15:29 SAMPLE UNSUITABLE FORTESTING. SYRINGE NOT PROPERLY CAPPED AND EXPOSED TO AIR.. Result Comment: NOTE : PATIENT RESULTS ARE NOT CORRECTED FOR TEMPERATURE. Performed By: #### B LGA2 ####[id number] [place] [address] PC CONTROL Canceled Normal [facility] Comment on above: Order Comment: TEST ARTERIAL BLOOD GAS WAS CANCELLED, 08/18/2022 15:29 SAMPLE UNSUITABLE FORTESTING. SYRINGE NOT PROPERLY CAPPED AND EXPOSED TO AIR.. Performed By: #### B LGA2 ####[id number] [place] [address] PCO2 Canceled Normal [facility] Comment on above: Order Comment: TEST ARTERIAL BLOOD GAS WAS CANCELLED, 08/18/2022 15:29 SAMPLE UNSUITABLE FORTESTING. SYRINGE NOT PROPERLY CAPPED AND EXPOSED TO AIR.. Performed By: #### B LGA2 ####[id number] [place] [address] PEAK PRESSURE Canceled Normal [facility] Comment on above: Order Comment: TEST ARTERIAL BLOOD GAS WAS CANCELLED, 08/18/2022 15:29 SAMPLE UNSUITABLE FORTESTING. SYRINGE NOT PROPERLY CAPPED AND EXPOSED TO AIR.. Performed By: #### B LGA2 ####[id number] [id number] PEEP CMH2O Canceled Normal [facility] Comment on above: Order Comment: TEST ARTERIAL BLOOD GAS WAS CANCELLED, 08/18/2022 15:29 SAMPLE UNSUITABLE FORTESTING. SYRINGE NOT PROPERLY CAPPED AND EXPOSED TO AIR.. Performed By: #### B LGA2 ####[id number] [place] [address] pH Canceled Normal [facility] Comment on above: Order Comment: TEST ARTERIAL BLOOD GAS WAS CANCELLED, 08/18/2022 15:29 SAMPLE UNSUITABLE FORTESTING. SYRINGE NOT PROPERLY CAPPED AND EXPOSED TO AIR.. Performed By: #### B LGA2 ####[id number] [place] [address] PO2 Canceled Normal [facility] Comment on above: Order Comment: TEST ARTERIAL BLOOD GAS WAS CANCELLED, 08/18/2022 15:29 SAMPLE UNSUITABLE FORTESTING. SYRINGE NOT PROPERLY CAPPED AND EXPOSED TO AIR.. Performed By: #### B LGA2 ####[id number] [id number] PRESSURE SUPPORT Canceled Normal [facility] Comment on above: Order Comment: TEST ARTERIAL BLOOD GAS WAS CANCELLED, 08/18/2022 15:29 SAMPLE UNSUITABLE FORTESTING. SYRINGE NOT PROPERLY CAPPED AND EXPOSED TO AIR.. Performed By: #### B LGA2 ####[id number] [id number] SO2 Canceled Normal [facility] Comment on above: Order Comment: TEST ARTERIAL BLOOD GAS WAS CANCELLED, 08/18/2022 15:29 SAMPLE UNSUITABLE FORTESTING. SYRINGE NOT PROPERLY CAPPED AND EXPOSED TO AIR.. Performed By: #### B LGA2 ####[id number] [id number] SPONTANEOUS TIDAL VOLUME Canceled Normal [facility] Comment on above: Order Comment: TEST ARTERIAL BLOOD GAS WAS CANCELLED, 08/18/2022 15:29 SAMPLE UNSUITABLE FORTESTING. SYRINGE NOT PROPERLY CAPPED AND EXPOSED TO AIR.. Performed By: #### B LGA2 ####[id number] [place] [address] TIDAL VOLUME Canceled Normal [facility] Comment on above: Order Comment: TEST ARTERIAL BLOOD GAS WAS CANCELLED, 08/18/2022 15:29 SAMPLE UNSUITABLE FORTESTING. SYRINGE NOT PROPERLY CAPPED AND EXPOSED TO AIR.. Performed By: #### B LGA2 ####[id number] [place] [address] TOTAL MINUTE VOLUME Canceled Normal [facility] Comment on above: Order Comment: TEST ARTERIAL BLOOD GAS WAS CANCELLED, 08/18/2022 15:29 SAMPLE UNSUITABLE FORTESTING. SYRINGE NOT PROPERLY CAPPED AND EXPOSED TO AIR.. Performed By: #### B LGA2 ####[id number] [id number] VENTILATOR MODE Canceled Normal [facility] Comment on above: Order Comment: TEST ARTERIAL BLOOD GAS WAS CANCELLED, 08/18/2022 15:29 SAMPLE UNSUITABLE FORTESTING. SYRINGE NOT PROPERLY CAPPED AND EXPOSED TO AIR.. Performed By: #### B LGA2 ####[id number] [id number] VENTILATOR RATE Canceled Normal [facility] Comment on above: Order Comment: TEST ARTERIAL BLOOD GAS WAS CANCELLED, 08/18/2022 15:29 SAMPLE UNSUITABLE FORTESTING. SYRINGE NOT PROPERLY CAPPED AND EXPOSED TO AIR.. Performed By: #### B LGA2 ####[id number] [place] [address] ARTERIAL FULL PANELon 2022 Anion gap [Moles/Vol] 21 mmol/L Normal 10 - 25 [facility] Comment on above: Order Comment: PHART LACTA LAURA KISS RB, 08/18/2022 20:50 Performed By: #### A FPA4 ####[id number] [place] [address] BASE EXCESS-BLOOD -9.5 mmol/L Low -2.0 - 3.0 [facility] Comment on above: Order Comment: PHART LACTA LAURA KISS RB, 08/18/2022 20:50 Performed By: #### A FPA4 ####[id number] [place] [address] BICARB, CALCULATED 17.6 mmol/L Low 22.0 - 26.0 [facility] Comment on above: Order Comment: PHART LACTA LAURA KISS RB, 08/18/2022 20:50 Performed By: #### A FPA4 ####[id number] [place] [address] CALCIUM,IONIZED 1.12 mmol/L Normal 1.10 - 1.33 [facility], [place] Comment on above: Order Comment: PHART LACTA LAURA KISS RB, 08/18/2022 20:50 Performed By: #### A FPA4 ####[id number] [place] [address] Chloride [Moles/Vol] 103 mmol/L Normal 98 - 107 [facility] Comment on above: Order Comment: PHART LACTA LAURA KISS RB, 08/18/2022 20:50 Performed By: #### A FPA4 ####[id number] [place] [address] Glucose [Mass/Vol] 307 mg/dL High 74 - 99 [facility] Comment on above: Order Comment: PHART LACTA LAURA KISS RB, 08/18/2022 20:50 Performed By: #### A FPA4 ####[id number] [place] [address] Hematocrit (Bld) [Volume fraction] 36.0 % Low 41.0 - 52.0 [facility] Comment on above: Order Comment: PHART LACTA LAURA KISS RB, 08/18/2022 20:50 Performed By: #### A FPA4 ####[id number] [id number] Hemoglobin (Bld) [Mass/Vol] 11.9 g/dL Low 13.5 - 17.5 [facility] Comment on above: Order Comment: PHART LACTA LAURA KISS RB, 08/18/2022 20:50 Performed By: #### A FPA4 ####[id number] [id number] Lactate [Moles/Vol] 12.2 mmol/L Critically high 0.4 - 2.0 [facility] Comment on above: Order Comment: PHART LACTA LAURA KISS RB, 08/18/2022 20:50 Result Comment: PHAR T LACTA LAURA KISS RB, 08/18/2022 20:50 Performed By: #### A FPA4 ####[id number] [id number] OXY HGB 96.1 % Normal 94.0 - 98.0 [facility] Comment on above: Order Comment: PHART LACTA LAURA KISS RB, 08/18/2022 20:50 Performed By: #### A FPA4 ####[id number] [place] [address] Oxygen (Bld) [Partial pressure] 124 mm[Hg] High 85 - 95 [facility] Comment on above: Order Comment: PHART LACTA LAURA KISS RB, 08/18/2022 20:50 Performed By: #### A FPA4 ####[id number] [place] [address] PATIENT TEMPERATURE 37.0 degrees C Normal [facility] Comment on above: Order Comment: PHART LACTA LAURA KISS RB, 08/18/2022 20:50 Result Comment: NOTE : PATIENT RESULTS ARE NOT CORRECTED FOR TEMPERATURE. Performed By: #### A FPA4 ####[id number] [place] [address] PCO2 42 mmHg Normal 38 - 42 [facility] Comment on above: Order Comment: PHART LACTA LAURA KISS RB, 08/18/2022 20:50 Performed By: #### A FPA4 ####[id number] [place] [address] pH (Bld) 7.23 [pH] Critically low 7.38 - 7.42 [facility] Comment on above: Order Comment: PHART LACTA LAURA KISS RB, 08/18/2022 20:50 Result Comment: PHAR T LACTA LAURA KISS RB, 08/18/2022 20:50 Performed By: #### A FPA4 ####[id number] [place] [address] Potassium [Moles/Vol] 4.0 mmol/L Normal 3.5 - 5.3 [facility] Comment on above: Order Comment: PHART LACTA LAURA KISS RB, 08/18/2022 20:50 Performed By: #### A FPA4 ####[id number] [place] [address] SO2 98 % Normal 94 - 100 [facility] Comment on above: Order Comment: PHART LACTA LAURA KISS RB, 08/18/2022 20:50 Performed By: #### A FPA4 ####[id number] [place] [address] Sodium [Moles/Vol] 138 mmol/L Normal 136 - 145 [facility] Comment on above: Order Comment: PHART LACTA LAURA KISS RB, 08/18/2022 20:50 Performed By: #### A FPA4 ####[id number] [place] [address] Anion gap [Moles/Vol] 20 mmol/L Normal 10 - 25 [facility] Comment on above: Order Comment: RB TO CHANCE HOPE, 08/18/2022 19:21 Performed By: #### A FPA4 ####[id number] [place] [address] BASE EXCESS-BLOOD -10.1 mmol/L Low -2.0 - 3.0 [facility] Comment on above: Order Comment: RB TO CHANCE HOPE, 08/18/2022 19:21 Performed By: #### A FPA4 ####[id number] [place] [address] BICARB, CALCULATED 17.2 mmol/L Low 22.0 - 26.0 [facility] Comment on above: Order Comment: RB TO CHANCE HOPE, 08/18/2022 19:21 Performed By: #### A FPA4 ####[id number] [id number] CALCIUM,IONIZED 1.11 mmol/L Normal 1.10 - 1.33 [facility], [place] Comment on above: Order Comment: RB TO CHANCE HOPE, 08/18/2022 19:21 Performed By: #### A FPA4 ####[id number] [place] [address] Chloride [Moles/Vol] 102 mmol/L Normal 98 - 107 [facility] Comment on above: Order Comment: RB TO CHANCE HOPE, 08/18/2022 19:21 Performed By: #### A FPA4 ####[id number] [place] [address] Glucose [Mass/Vol] 255 mg/dL High 74 - 99 [facility] Comment on above: Order Comment: RB TO CHANCE HOPE, 08/18/2022 19:21 Performed By: #### A FPA4 ####[id number] [place] [address] Hematocrit (Bld) [Volume fraction] 37.0 % Low 41.0 - 52.0 [facility] Comment on above: Order Comment: RB TO CHANCE HOPE, 08/18/2022 19:21 Performed By: #### A FPA4 ####[id number] [place] [address] Hemoglobin (Bld) [Mass/Vol] 12.3 g/dL Low 13.5 - 17.5 [facility] Comment on above: Order Comment: RB TO CHANCE HOPE, 08/18/2022 19:21 Performed By: #### A FPA4 ####[id number] [place] [address] Lactate [Moles/Vol] 11.3 mmol/L Critically high 0.4 - 2.0 [facility] Comment on above: Order Comment: RB TO CHANCE HOPE, 08/18/2022 19:21 Result Comment: RB T O CHANCE HOPE, 08/18/2022 19:21 Performed By: #### A FPA4 ####[id number] [place] [address] OXY HGB 96.1 % Normal 94.0 - 98.0 [facility] Comment on above: Order Comment: RB TO CHANCE HOPE, 08/18/2022 19:21 Performed By: #### A FPA4 ####[id number] [place] [address] Oxygen (Bld) [Partial pressure] 98 mm[Hg] High 85 - 95 [facility] Comment on above: Order Comment: RB TO CHANCE HOPE, 08/18/2022 19:21 Performed By: #### A FPA4 ####[id number] [place] [address] PATIENT TEMPERATURE 37.0 degrees C Normal [facility] Comment on above: Order Comment: RB TO CHANCE HOPE, 08/18/2022 19:21 Result Comment: NOTE : PATIENT RESULTS ARE NOT CORRECTED FOR TEMPERATURE. Performed By: #### A FPA4 ####[id number] [place] [address] PCO2 42 mmHg Normal 38 - 42 [facility] Comment on above: Order Comment: RB TO CHANCE HOPE, 08/18/2022 19:21 Performed By: #### A FPA4 ####[id number] [place] [address] pH (Bld) 7.22 [pH] Critically low 7.38 - 7.42 [facility] Comment on above: Order Comment: RB TO CHANCE CONTRERASTINE, 08/18/2022 19:21 Result Comment: RB T O CHANCE CONTRERASTINE, 08/18/2022 19:21 Performed By: #### A FPA4 ####[id number] [place] [address] Potassium [Moles/Vol] 3.6 mmol/L Normal 3.5 - 5.3 [facility] Comment on above: Order Comment: RB TO CHANCE CONTRERASTINE, 08/18/2022 19:21 Performed By: #### A FPA4 ####[id number] [place] [address] SO2 99 % Normal 94 - 100 [facility] Comment on above: Order Comment: RB TO CHANCE CONTRERASTINE, 08/18/2022 19:21 Performed By: #### A FPA4 ####[id number] [place] [address] Sodium [Moles/Vol] 136 mmol/L Normal 136 - 145 [facility] Comment on above: Order Comment: RB TO CHNACE CONTRERASTINE, 08/18/2022 19:21 Performed By: #### A FPA4 ####[id number] [id number] Anion gap [Moles/Vol] 20 mmol/L Normal 10 - 25 [facility] Comment on above: Order Comment: RB TO LISSET GAN, 08/18/2022 17:37RB TO LISSET MALIK, 08/18/2022 17:37 Performed By: #### A FPA4 ####[id number] [place] [address] BASE EXCESS-BLOOD -8.9 mmol/L Low -2.0 - 3.0 [facility] Comment on above: Order Comment: RB TO LISSET MALIK, 08/18/2022 17:37RB TO LISSET MALIK, 08/18/2022 17:37 Performed By: #### A FPA4 ####[id number] [place] [address] BICARB, CALCULATED 18.4 mmol/L Low 22.0 - 26.0 [facility] Comment on above: Order Comment: RB TO LISSET MALIK, 08/18/2022 17:37RB TO LISSET MALIK, 08/18/2022 17:37 Performed By: #### A FPA4 ####[id number] [place] [address] CALCIUM,IONIZED 1.18 mmol/L Normal 1.10 - 1.33 [facility], [place] Comment on above: Order Comment: RB TO LISSET MALIK, 08/18/2022 17:37RB TO LISSET MALIK, 08/18/2022 17:37 Performed By: #### A FPA4 ####[id number] [place] [address] Chloride [Moles/Vol] 104 mmol/L Normal 98 - 107 [facility] Comment on above: Order Comment: RB TO LISSET MALIK, 08/18/2022 17:37RB TO LISSET MALIK, 08/18/2022 17:37 Performed By: #### A FPA4 ####[id number] [place] [address] Glucose [Mass/Vol] 213 mg/dL High 74 - 99 [facility] Comment on above: Order Comment: RB TO LISSET MALIK, 08/18/2022 17:37RB TO LISSET MALIK, 08/18/2022 17:37 Performed By: #### A FPA4 ####[id number] [place] [address] Hematocrit (Bld) [Volume fraction] 37.0 % Low 41.0 - 52.0 [facility] Comment on above: Order Comment: RB TO LISSET MALIK, 08/18/2022 17:37RB TO LISSET MALIK, 08/18/2022 17:37 Performed By: #### A FPA4 ####[id number] [place] [address] Hemoglobin (Bld) [Mass/Vol] 12.3 g/dL Low 13.5 - 17.5 [facility] Comment on above: Order Comment: RB TO LISSET MALIK, 08/18/2022 17:37RB TO LISSET MALIK, 08/18/2022 17:37 Performed By: #### A FPA4 ####[id number] [place] [address] Lactate [Moles/Vol] 10.4 mmol/L Critically high 0.4 - 2.0 [facility] Comment on above: Order Comment: RB TO LISSET MALIK, 08/18/2022 17:37RB TO LISSET MALIK, 08/18/2022 17:37 Result Comment: RB T O LISSET MALIK, 08/18/2022 17:37RB TO LISSET MALIK, 08/18/2022 17:37 Performed By: #### A FPA4 ####[id number] [id number] OXY HGB 96.6 % Normal 94.0 - 98.0 [facility] Comment on above: Order Comment: RB TO LISSET MALIK, 08/18/2022 17:37RB TO LISSET MALIK, 08/18/2022 17:37 Performed By: #### A FPA4 ####[id number] [id number] Oxygen (Bld) [Partial pressure] 104 mm[Hg] High 85 - 95 [facility] Comment on above: Order Comment: RB TO LISSET MALIK, 08/18/2022 17:37RB TO LISSET MALIK, 08/18/2022 17:37 Performed By: #### A FPA4 ####[id number] [id number] PATIENT TEMPERATURE 37.0 degrees C Normal [facility] Comment on above: Order Comment: RB TO LISSET MALIK, 08/18/2022 17:37RB TO LISSET MALIK, 08/18/2022 17:37 Result Comment: NOTE : PATIENT RESULTS ARE NOT CORRECTED FOR TEMPERATURE. Performed By: #### A FPA4 ####[id number] [place] [address] PCO2 44 mmHg High 38 - 42 [facility] Comment on above: Order Comment: RB TO LISSET MALIK, 08/18/2022 17:37RB TO LISSET MALIK, 08/18/2022 17:37 Performed By: #### A FPA4 ####[id number] [place] [address] pH (Bld) 7.23 [pH] Critically low 7.38 - 7.42 [facility] Comment on above: Order Comment: RB TO LISSET MALIK, 08/18/2022 17:37RB TO LISSET MALIK, 08/18/2022 17:37 Result Comment: RB T O LISSET MALIK, 08/18/2022 17:37RB TO LISSET MALIK, 08/18/2022 17:37 Performed By: #### A FPA4 ####[id number] [place] [address] Potassium [Moles/Vol] 3.6 mmol/L Normal 3.5 - 5.3 [facility] Comment on above: Order Comment: RB TO LISSET MALIK, 08/18/2022 17:37RB TO LISSET MALIK, 08/18/2022 17:37 Performed By: #### A FPA4 ####[id number] [place] [address] SO2 99 % Normal 94 - 100 [facility] Comment on above: Order Comment: RB TO LISSET MALIK, 08/18/2022 17:37RB TO LISSET MALIK, 08/18/2022 17:37 Performed By: #### A FPA4 ####[id number] [place] [address] Sodium [Moles/Vol] 139 mmol/L Normal 136 - 145 [facility] Comment on above: Order Comment: RB TO LISSET MALIK, 08/18/2022 17:37RB TO LISSET MALIK, 08/18/2022 17:37 Performed By: #### A FPA4 ####[id number] [place] [address] Anion gap [Moles/Vol] 18 mmol/L Normal 10 - 25 [facility] Comment on above: Performed By: #### A FPA4 ####[id number] [place] [address] BASE EXCESS-BLOOD -7.4 mmol/L Low -2.0 - 3.0 [facility] Comment on above: Performed By: #### A FPA4 ####[id number] [place] [address] BICARB, CALCULATED 20.5 mmol/L Low 22.0 - 26.0 [facility] Comment on above: Performed By: #### A FPA4 ####[id number] [place] [address] CALCIUM,IONIZED 1.14 mmol/L Normal 1.10 - 1.33 [facility], [place] Comment on above: Performed By: #### A FPA4 ####[id number] [place] [address] Chloride [Moles/Vol] 104 mmol/L Normal 98 - 107 [facility] Comment on above: Performed By: #### A FPA4 ####[id number] [place] [address] Glucose [Mass/Vol] 190 mg/dL High 74 - 99 [facility] Comment on above: Performed By: #### A FPA4 ####[id number] [place] [address] Hematocrit (Bld) [Volume fraction] 39.0 % Low 41.0 - 52.0 [facility] Comment on above: Performed By: #### A FPA4 ####[id number] [place] [address] Hemoglobin (Bld) [Mass/Vol] 13.1 g/dL Low 13.5 - 17.5 [facility] Comment on above: Performed By: #### A FPA4 ####[id number] [place] [address] Lactate [Moles/Vol] 9.3 mmol/L Critically high 0.4 - 2.0 [facility] Comment on above: Performed By: #### A FPA4 ####[id number] [place] [address] OXY HGB 93.8 % Low 94.0 - 98.0 [facility] Comment on above: Performed By: #### A FPA4 ####[id number] [place] [address] Oxygen (Bld) [Partial pressure] 80 mm[Hg] Low 85 - 95 [facility] Comment on above: Performed By: #### A FPA4 ####[id number] [place] [address] PATIENT TEMPERATURE 37.0 degrees C Normal [facility] Comment on above: Result Comment: NOTE : PATIENT RESULTS ARE NOT CORRECTED FOR TEMPERATURE. Performed By: #### A FPA4 ####[id number] [place] [address] PCO2 50 mmHg High 38 - 42 [facility] Comment on above: Performed By: #### A FPA4 ####[id number] [place] [address] pH (Bld) 7.22 [pH] Critically low 7.38 - 7.42 [facility] Comment on above: Performed By: #### A FPA4 ####[id number] [place] [address] Potassium [Moles/Vol] 3.7 mmol/L Normal 3.5 - 5.3 [facility] Comment on above: Performed By: #### A FPA4 ####[id number] [place] [address] SO2 96 % Normal 94 - 100 [facility] Comment on above: Performed By: #### A FPA4 ####[id number] [place] [address] Sodium [Moles/Vol] 139 mmol/L Normal 136 - 145 [facility] Comment on above: Performed By: #### A FPA4 ####[id number] [place] [address] Anion gap [Moles/Vol] 17 mmol/L Normal 10 - 25 [facility] Comment on above: Order Comment: RB TO JEREMY ARRIAZA, 08/18/2022 14:18 Performed By: #### A FPA4 ####[id number] [place] [address] BASE EXCESS-BLOOD -5.4 mmol/L Low -2.0 - 3.0 [facility] Comment on above: Order Comment: RB TO JEREMY ARRIAZA, 08/18/2022 14:18 Performed By: #### A FPA4 ####[id number] [place] [address] BICARB, CALCULATED 23.2 mmol/L Normal 22.0 - 26.0 [facility] Comment on above: Order Comment: RB TO JEREMY ARRIAZA, 08/18/2022 14:18 Performed By: #### A FPA4 ####[id number] [place] [address] CALCIUM,IONIZED 1.16 mmol/L Normal 1.10 - 1.33 [facility] [place] Comment on above: Order Comment: RB TO JEREMY ARRIAZA, 08/18/2022 14:18 Performed By: #### A FPA4 ####[id number] [place] [address] Chloride [Moles/Vol] 103 mmol/L Normal 98 - 107 [facility] Comment on above: Order Comment: RB TO JEREMY ARRIAZA, 08/18/2022 14:18 Performed By: #### A FPA4 ####[id number] [place] [address] Glucose [Mass/Vol] 191 mg/dL High 74 - 99 [facility] Comment on above: Order Comment: RB TO JEREMY SOFIYA, 08/18/2022 14:18 Performed By: #### A FPA4 ####[id number] [place] [address] Hematocrit (Bld) [Volume fraction] 40.0 % Low 41.0 - 52.0 [facility] Comment on above: Order Comment: RB TO JEREMY ARRIAZA, 08/18/2022 14:18 Performed By: #### A FPA4 ####[id number] [place] [address] Hemoglobin (Bld) [Mass/Vol] 13.3 g/dL Low 13.5 - 17.5 [facility] Comment on above: Order Comment: RB TO JEREMY SOFIYA, 08/18/2022 14:18 Performed By: #### A FPA4 ####[id number] [place] [address] Lactate [Moles/Vol] 7.6 mmol/L Critically high 0.4 - 2.0 [facility] Comment on above: Order Comment: RB TO JEREMY SOFIYA, 08/18/2022 14:18 Result Comment: RB T O JEREMY SOFIYA, 08/18/2022 14:18 Performed By: #### A FPA4 ####[id number] [place] [address] OXY HGB 93.7 % Low 94.0 - 98.0 [facility] Comment on above: Order Comment: RB TO JEREMY SOFIYA, 08/18/2022 14:18 Performed By: #### A FPA4 ####[id number] [place] [address] Oxygen (Bld) [Partial pressure] 84 mm[Hg] Low 85 - 95 [facility] Comment on above: Order Comment: RB TO JEREMY SOFIYA, 08/18/2022 14:18 Performed By: #### A FPA4 ####[id number] [place] [address] PATIENT TEMPERATURE 37.0 degrees C Normal [facility] Comment on above: Order Comment: RB TO JEREMY SOFIYA, 08/18/2022 14:18 Result Comment: NOTE : PATIENT RESULTS ARE NOT CORRECTED FOR TEMPERATURE. Performed By: #### A FPA4 ####[id number] [place] [address] PCO2 58 mmHg High 38 - 42 [facility] Comment on above: Order Comment: RB TO JEREMY SOFIYA, 08/18/2022 14:18 Performed By: #### A FPA4 ####[id number] [place] [address] pH (Bld) 7.21 [pH] Critically low 7.38 - 7.42 [facility] Comment on above: Order Comment: RB TO JEREMY SOFIYA, 08/18/2022 14:18 Result Comment: RB T O JEREMY SOFIYA, 08/18/2022 14:18 Performed By: #### A FPA4 ####[id number] [place] [address] Potassium [Moles/Vol] 4.0 mmol/L Normal 3.5 - 5.3 [facility] Comment on above: Order Comment: RB TO JEREMY SOFIYA, 08/18/2022 14:18 Performed By: #### A FPA4 ####[id number] [place] [address] SO2 96 % Normal 94 - 100 [facility] Comment on above: Order Comment: RB TO JEREMY ARRIAZA, 08/18/2022 14:18 Performed By: #### A FPA4 ####[id number] [place] [address] Sodium [Moles/Vol] 139 mmol/L Normal 136 - 145 [facility] Comment on above: Order Comment: RB TO JEREMY ARRIAZA, 08/18/2022 14:18 Performed By: #### A FPA4 ####[id number] [place] [address] Anion gap [Moles/Vol] 16 mmol/L Normal 10 - 25 [facility] Comment on above: Performed By: #### A FPA4 ####[id number] [place] [address] BASE EXCESS-BLOOD -5.5 mmol/L Low -2.0 - 3.0 [facility] Comment on above: Performed By: #### A FPA4 ####[id number] [place] [address] BICARB, CALCULATED 22.3 mmol/L Normal 22.0 - 26.0 [facility] Comment on above: Performed By: #### A FPA4 ####[id number] [place] [address] CALCIUM,IONIZED 1.10 mmol/L Normal 1.10 - 1.33 [facility] [place] Comment on above: Performed By: #### A FPA4 ####[id number] [place] [address] Chloride [Moles/Vol] 104 mmol/L Normal 98 - 107 [facility] Comment on above: Performed By: #### A FPA4 ####[id number] [place] [address] FIO2 80 % Normal [facility] Comment on above: Performed By: #### A FPA4 ####[id number] [place] [address] Glucose [Mass/Vol] 170 mg/dL High 74 - 99 [facility] Comment on above: Performed By: #### A FPA4 ####[id number] [place] [address] Hematocrit (Bld) [Volume fraction] 40.0 % Low 41.0 - 52.0 [facility] Comment on above: Performed By: #### A FPA4 ####[id number] [place] [address] Lactate [Moles/Vol] 6.0 mmol/L Critically high 0.4 - 2.0 [facility] Comment on above: Performed By: #### A FPA4 ####[id number] [place] [address] Oxygen (Bld) [Partial pressure] 197 mm[Hg] High 85 - 95 [facility] Comment on above: Performed By: #### A FPA4 ####[id number] [place] [address] PATIENT TEMPERATURE 37.0 degrees C Normal [facility] Comment on above: Result Comment: NOTE : PATIENT RESULTS ARE NOT CORRECTED FOR TEMPERATURE. Performed By: #### A FPA4 ####[id number] [place] [address] PCO2 52 mmHg High 38 - 42 [facility] Comment on above: Performed By: #### A FPA4 ####[id number] [place] [address] pH (Bld) 7.24 [pH] Critically low 7.38 - 7.42 [facility] Comment on above: Performed By: #### A FPA4 ####[id number] [place] [address] Potassium [Moles/Vol] 3.9 mmol/L Normal 3.5 - 5.3 [facility] Comment on above: Performed By: #### A FPA4 ####[id number] [place] [address] SO2 99 % Normal 94 - 100 [facility] Comment on above: Performed By: #### A FPA4 ####[id number] [place] [address] Sodium [Moles/Vol] 138 mmol/L Normal 136 - 145 [facility] Comment on above: Performed By: #### A FPA4 ####[id number] [place] [address] Anion gap [Moles/Vol] 13 mmol/L Normal 10 - 25 [facility] Comment on above: Performed By: #### A FPA4 ####[id number] [place] [address] BASE EXCESS-BLOOD -3.6 mmol/L Low -2.0 - 3.0 [facility] Comment on above: Performed By: #### A FPA4 ####[id number] [place] [address] BICARB, CALCULATED 23.5 mmol/L Normal 22.0 - 26.0 [facility] Comment on above: Performed By: #### A FPA4 ####[id number] [place] [address] CALCIUM,IONIZED 1.10 mmol/L Normal 1.10 - 1.33 [facility] [place] Comment on above: Performed By: #### A FPA4 ####[id number] [place] [address] Chloride [Moles/Vol] 104 mmol/L Normal 98 - 107 [facility] Comment on above: Performed By: #### A FPA4 ####[id number] [place] [address] FIO2 80 % Normal [facility] Comment on above: Performed By: #### A FPA4 ####[id number] [place] [address] Glucose [Mass/Vol] 161 mg/dL High 74 - 99 [facility] Comment on above: Performed By: #### A FPA4 ####[id number] [place] [address] Hematocrit (Bld) [Volume fraction] 38.0 % Low 41.0 - 52.0 [facility] Comment on above: Performed By: #### A FPA4 ####[id number] [place] [address] Lactate [Moles/Vol] 4.7 mmol/L Critically high 0.4 - 2.0 [facility] Comment on above: Performed By: #### A FPA4 ####[id number] [place] [address] Oxygen (Bld) [Partial pressure] 266 mm[Hg] High 85 - 95 [facility] Comment on above: Performed By: #### A FPA4 ####[id number] [place] [address] PATIENT TEMPERATURE 37.0 degrees C Normal [facility] Comment on above: Result Comment: NOTE : PATIENT RESULTS ARE NOT CORRECTED FOR TEMPERATURE. Performed By: #### A FPA4 ####[id number] [place] [address] PCO2 50 mmHg High 38 - 42 [facility] Comment on above: Performed By: #### A FPA4 ####[id number] [place] [address] pH (Bld) 7.28 [pH] Low 7.38 - 7.42 [facility] Comment on above: Performed By: #### A FPA4 ####[id number] [place] [address] Potassium [Moles/Vol] 3.9 mmol/L Normal 3.5 - 5.3 [facility] Comment on above: Performed By: #### A FPA4 ####[id number] [place] [address] SO2 100 % Normal 94 - 100 [facility] Comment on above: Performed By: #### A FPA4 ####[id number] [place] [address] Sodium [Moles/Vol] 137 mmol/L Normal 136 - 145 [facility] Comment on above: Performed By: #### A FPA4 ####[id number] [place] [address] Anion gap [Moles/Vol] 12 mmol/L Normal 10 - 25 [facility] Comment on above: Performed By: #### A FPA4 ####[id number] [place] [address] BASE EXCESS-BLOOD -1.7 mmol/L Normal -2.0 - 3.0 [facility] Comment on above: Performed By: #### A FPA4 ####[id number] [place] [address] BICARB, CALCULATED 24.7 mmol/L Normal 22.0 - 26.0 [facility] Comment on above: Performed By: #### A FPA4 ####[id number] [place] [address] CALCIUM,IONIZED 1.17 mmol/L Normal 1.10 - 1.33 [facility] [place] Comment on above: Performed By: #### A FPA4 ####[id number] [place] [address] Chloride [Moles/Vol] 104 mmol/L Normal 98 - 107 [facility] Comment on above: Performed By: #### A FPA4 ####[id number] [place] [address] FIO2 80 % Normal [facility] Comment on above: Performed By: #### A FPA4 ####[id number] [place] [address] Glucose [Mass/Vol] 151 mg/dL High 74 - 99 [facility] Comment on above: Performed By: #### A FPA4 ####[id number] [place] [address] Hematocrit (Bld) [Volume fraction] 36.0 % Low 41.0 - 52.0 [facility] Comment on above: Performed By: #### A FPA4 ####[id number] [place] [address] Lactate [Moles/Vol] 3.8 mmol/L High 0.4 - 2.0 [facility] Comment on above: Performed By: #### A FPA4 ####[id number] [place] [address] Oxygen (Bld) [Partial pressure] 264 mm[Hg] High 85 - 95 [facility] Comment on above: Performed By: #### A FPA4 ####[id number] [place] [address] PATIENT TEMPERATURE 37.0 degrees C Normal [facility] Comment on above: Result Comment: NOTE : PATIENT RESULTS ARE NOT CORRECTED FOR TEMPERATURE. Performed By: #### A FPA4 ####[id number] [place] [address] PCO2 48 mmHg High 38 - 42 [facility] Comment on above: Performed By: #### A FPA4 ####[id number] [place] [address] pH (Bld) 7.32 [pH] Low 7.38 - 7.42 [facility] Comment on above: Performed By: #### A FPA4 ####[id number] [place] [address] Potassium [Moles/Vol] 4.0 mmol/L Normal 3.5 - 5.3 [facility] Comment on above: Performed By: #### A FPA4 ####[id number] [place] [address] SO2 100 % Normal 94 - 100 [facility] Comment on above: Performed By: #### A FPA4 ####[id number] [place] [address] Sodium [Moles/Vol] 137 mmol/L Normal 136 - 145 [facility] Comment on above: Performed By: #### A FPA4 ####[id number] [place] [address] Anion gap [Moles/Vol] 10 mmol/L Normal 10 - 25 [facility] Comment on above: Performed By: #### A FPA4 ####[id number] [place] [address] BASE EXCESS-BLOOD 0.3 mmol/L Normal -2.0 - 3.0 [facility] [place] Comment on above: Performed By: #### A FPA4 ####[id number] [place] [address] BICARB, CALCULATED 25.4 mmol/L Normal 22.0 - 26.0 [facility] Comment on above: Performed By: #### A FPA4 ####[id number] [place] [address] CALCIUM,IONIZED 1.00 mmol/L Low 1.10 - 1.33 [facility] [place] Comment on above: Performed By: #### A FPA4 ####[id number] [place] [address] Chloride [Moles/Vol] 106 mmol/L Normal 98 - 107 [facility] Comment on above: Performed By: #### A FPA4 ####[id number] [place] [address] FIO2 100 % Normal [facility] Comment on above: Performed By: #### A FPA4 ####[id number] [place] [address] Glucose [Mass/Vol] 140 mg/dL High 74 - 99 [facility] Comment on above: Performed By: #### A FPA4 ####[id number] [place] [address] HCT,CALCULATED SEE COMMENT Normal 41.0 - 52.0 [facility] Comment on above: Result Comment: NOT CALCULATED Performed By: #### A FPA4 ####[id number] [place] [address] HGB SEE COMMENT Normal 13.5 - 17.5 [facility] Comment on above: Result Comment: NOT CALCULATED Performed By: #### A FPA4 ####[id number] [place] [address] Performed By: #### C OXA1 ####[id number] [place] [address] Lactate [Moles/Vol] 2.3 mmol/L High 0.4 - 2.0 [facility] Comment on above: Performed By: #### A FPA4 ####[id number] [place] [address] OXY HGB SEE COMMENT Normal 94.0 - 98.0 [facility] Comment on above: Result Comment: NOT CALCULATED Performed By: #### A FPA4 ####[id number] [place] [address] Performed By: #### C OXA1 ####[id number] [place] [address] Oxygen (Bld) [Partial pressure] 205 mm[Hg] High 85 - 95 [facility] Comment on above: Performed By: #### A FPA4 ####[id number] [place] [address] PATIENT TEMPERATURE 37.0 degrees C Normal [facility] Comment on above: Result Comment: NOTE : PATIENT RESULTS ARE NOT CORRECTED FOR TEMPERATURE. Performed By: #### A FPA4 ####[id number] [place] [address] PCO2 42 mmHg Normal 38 - 42 [facility] Comment on above: Performed By: #### A FPA4 ####[id number] [place] [address] pH (Bld) 7.39 [pH] Normal 7.38 - 7.42 [facility] Comment on above: Performed By: #### A FPA4 ####[id number] [place] [address] Potassium [Moles/Vol] 5.2 mmol/L Normal 3.5 - 5.3 [facility] Comment on above: Performed By: #### A FPA4 ####[id number] [place] [address] SO2 SEE COMMENT Normal 94 - 100 [facility] Comment on above: Result Comment: NOT CALCULATED Performed By: #### A FPA4 ####[id number] [place] [address] Sodium [Moles/Vol] 136 mmol/L Normal 136 - 145 [facility] Comment on above: Performed By: #### A FPA4 ####[id number] [place] [address] Anion gap [Moles/Vol] 9 mmol/L Low 10 - 25 [facility] Comment on above: Performed By: #### A FPA4 ####[id number] [place] [address] BASE EXCESS-BLOOD 1.5 mmol/L Normal -2.0 - 3.0 [facility] [place] Comment on above: Performed By: #### A FPA4 ####[id number] [place] [address] BICARB, CALCULATED 26.6 mmol/L High 22.0 - 26.0 [facility] Comment on above: Performed By: #### A FPA4 ####[id number] [place] [address] CALCIUM,IONIZED 1.06 mmol/L Low 1.10 - 1.33 [facility] [place] Comment on above: Performed By: #### A FPA4 ####[id number] [place] [address] Chloride [Moles/Vol] 102 mmol/L Normal 98 - 107 [facility] Comment on above: Performed By: #### A FPA4 ####[id number] [place] [address] FIO2 100 % Normal [facility] Comment on above: Performed By: #### A FPA4 ####[id number] [place] [address] Glucose [Mass/Vol] 169 mg/dL High 74 - 99 [facility] Comment on above: Performed By: #### A FPA4 ####[id number] [place] [address] Hematocrit (Bld) [Volume fraction] 36.0 % Low 41.0 - 52.0 [facility] Comment on above: Performed By: #### A FPA4 ####[id number] Hemoglobin (Bld) [Mass/Vol] 12.1 g/dL Low 13.5 - 17.5 [facility] Comment on above: Performed By: #### A FPA4 ####[id number] Performed By: #### C OXA1 ####[id number] Lactate [Moles/Vol] 2.1 mmol/L High 0.4 - 2.0 [facility] Comment on above: Performed By: #### A FPA4 ####[id number] OXY HGB 97.4 % Normal 94.0 - 98.0 [facility] Comment on above: Performed By: #### A FPA4 ####[id number] Performed By: #### C OXA1 ####[id number], [place] Oxygen (Bld) [Partial pressure] 319 mm[Hg] High 85 - 95 [facility] Comment on above: Performed By: #### A FPA4 ####[id number] PATIENT TEMPERATURE 37.0 degrees C Normal [facility] Comment on above: Result Comment: NOTE : PATIENT RESULTS ARE NOT CORRECTED FOR TEMPERATURE. Performed By: #### A FPA4 ####[id number] PCO2 43 mmHg High 38 - 42 [facility] Comment on above: Performed By: #### A FPA4 ####[id number] [place] [address] pH (Bld) 7.40 [pH] Normal 7.38 - 7.42 [facility] Comment on above: Performed By: #### A FPA4 ####[id number] [place] [address] Potassium [Moles/Vol] 6.0 mmol/L High 3.5 - 5.3 [facility] Comment on above: Performed By: #### A FPA4 ####[id number] [place] [address] SO2 100 % Normal 94 - 100 [facility] Comment on above: Performed By: #### A FPA4 ####[id number] [place] [address] Sodium [Moles/Vol] 132 mmol/L Low 136 - 145 [facility] Comment on above: Performed By: #### A FPA4 ####[id number] [place] [address] Anion gap [Moles/Vol] 10 mmol/L Normal 10 - 25 [facility] Comment on above: Performed By: #### A FPA4 ####[id number] [place] [address] BASE EXCESS-BLOOD 1.1 mmol/L Normal -2.0 - 3.0 [facility] [place] Comment on above: Performed By: #### A FPA4 ####[id number] [place] [address] BICARB, CALCULATED 27.1 mmol/L High 22.0 - 26.0 [facility] Comment on above: Performed By: #### A FPA4 ####[id number] [place] [address] CALCIUM,IONIZED 1.09 mmol/L Low 1.10 - 1.33 [facility] [place] Comment on above: Performed By: #### A FPA4 ####[id number] [place] [address] Chloride [Moles/Vol] 101 mmol/L Normal 98 - 107 [facility] Comment on above: Performed By: #### A FPA4 ####[id number] [place] [address] FIO2 90 % Normal [facility] Comment on above: Performed By: #### A FPA4 ####[id number] [place] [address] Glucose [Mass/Vol] 169 mg/dL High 74 - 99 [facility] Comment on above: Performed By: #### A FPA4 ####[id number] [place] [address] Hematocrit (Bld) [Volume fraction] 35.0 % Low 41.0 - 52.0 [facility] Comment on above: Performed By: #### A FPA4 ####[id number] [place] [address] Hemoglobin (Bld) [Mass/Vol] 11.6 g/dL Low 13.5 - 17.5 [facility] Comment on above: Performed By: #### A FPA4 ####[id number] [place] [address] Performed By: #### C OXA1 ####[id number] [place] [address] Lactate [Moles/Vol] 1.8 mmol/L Normal 0.4 - 2.0 [facility] Comment on above: Performed By: #### A FPA4 ####[id number] [place] [address] OXY HGB 96.7 % Normal 94.0 - 98.0 [facility] Comment on above: Performed By: #### A FPA4 ####[id number] [place] [address] Performed By: #### C OXA1 ####[id number] [place] [address] Oxygen (Bld) [Partial pressure] 176 mm[Hg] High 85 - 95 [facility] Comment on above: Performed By: #### A FPA4 ####[id number] [place] [address] PATIENT TEMPERATURE 37.0 degrees C Normal [facility] Comment on above: Result Comment: NOTE : PATIENT RESULTS ARE NOT CORRECTED FOR TEMPERATURE. Performed By: #### A FPA4 ####[id number] [place] [address] PCO2 48 mmHg High 38 - 42 [facility] Comment on above: Performed By: #### A FPA4 ####[id number] [place] [address] pH (Bld) 7.36 [pH] Low 7.38 - 7.42 [facility] Comment on above: Performed By: #### A FPA4 ####[id number] [place] [address] Potassium [Moles/Vol] 6.3 mmol/L Critically high 3.5 - 5.3 [facility] Comment on above: Performed By: #### A FPA4 ####[id number] [place] [address] SO2 99 % Normal 94 - 100 [facility] Comment on above: Performed By: #### A FPA4 ####[id number] [place] [address] Sodium [Moles/Vol] 132 mmol/L Low 136 - 145 [facility] Comment on above: Performed By: #### A FPA4 ####[id number] [place] [address] Anion gap [Moles/Vol] 9 mmol/L Low 10 - 25 [facility] Comment on above: Performed By: #### A FPA4 ####[id number] [place] [address] BASE EXCESS-BLOOD 3.1 mmol/L High -2.0 - 3.0 [facility] [place] Comment on above: Performed By: #### A FPA4 ####[id number] [place] [address] BICARB, CALCULATED 29.8 mmol/L High 22.0 - 26.0 [facility] Comment on above: Performed By: #### A FPA4 ####[id number] [place] [address] CALCIUM,IONIZED 1.10 mmol/L Normal 1.10 - 1.33 [facility] [place] Comment on above: Performed By: #### A FPA4 ####[id number] [place] [address] Chloride [Moles/Vol] 100 mmol/L Normal 98 - 107 [facility] Comment on above: Performed By: #### A FPA4 ####[id number] [place] [address] FIO2 100 % Normal [facility] Comment on above: Performed By: #### A FPA4 ####[id number] [place] [address] Glucose [Mass/Vol] 174 mg/dL High 74 - 99 [facility] Comment on above: Performed By: #### A FPA4 ####[id number] [place] [address] Hematocrit (Bld) [Volume fraction] 37.0 % Low 41.0 - 52.0 [facility] Comment on above: Performed By: #### A FPA4 ####[id number] [place] [address] Lactate [Moles/Vol] 1.6 mmol/L Normal 0.4 - 2.0 [facility] Comment on above: Performed By: #### A FPA4 ####[id number] [place] [address] Oxygen (Bld) [Partial pressure] 345 mm[Hg] High 85 - 95 [facility] Comment on above: Performed By: #### A FPA4 ####[id number] [place] [address] PATIENT TEMPERATURE 37.0 degrees C Normal [facility] Comment on above: Result Comment: NOTE : PATIENT RESULTS ARE NOT CORRECTED FOR TEMPERATURE. Performed By: #### A FPA4 ####[id number] [place] [address] PCO2 54 mmHg High 38 - 42 [facility] Comment on above: Performed By: #### A FPA4 ####[id number] [place] [address] pH (Bld) 7.35 [pH] Low 7.38 - 7.42 [facility] Comment on above: Performed By: #### A FPA4 ####[id number] [place] [address] Potassium [Moles/Vol] 6.0 mmol/L High 3.5 - 5.3 [facility] Comment on above: Performed By: #### A FPA4 ####[id number] [place] [address] SO2 100 % Normal 94 - 100 [facility] Comment on above: Performed By: #### A FPA4 ####[id number] [place] [address] Sodium [Moles/Vol] 133 mmol/L Low 136 - 145 [facility] Comment on above: Performed By: #### A FPA4 ####[id number] [place] [address] Anion gap [Moles/Vol] 5 mmol/L Low 10 - 25 [facility] Comment on above: Performed By: #### A FPA4 ####[id number] [place] [address] BASE EXCESS-BLOOD 4.6 mmol/L High -2.0 - 3.0 [facility] [place] Comment on above: Performed By: #### A FPA4 ####[id number] [place] [address] BICARB, CALCULATED 31.6 mmol/L High 22.0 - 26.0 [facility] Comment on above: Performed By: #### A FPA4 ####[id number] [place] [address] CALCIUM,IONIZED 1.10 mmol/L Normal 1.10 - 1.33 [facility], [place] Comment on above: Performed By: #### A FPA4 ####[id number] [place] [address] Chloride [Moles/Vol] 101 mmol/L Normal 98 - 107 [facility] Comment on above: Performed By: #### A FPA4 ####[id number] [place] [address] FIO2 100 % Normal [facility] Comment on above: Performed By: #### A FPA4 ####[id number] [place] [address] Glucose [Mass/Vol] 182 mg/dL High 74 - 99 [facility] Comment on above: Performed By: #### A FPA4 ####[id number] [place] [address] HCT,CALCULATED SEE COMMENT Normal 41.0 - 52.0 [facility] Comment on above: Result Comment: NOT CALCULATED Performed By: #### A FPA4 ####[id number] [place] [address] Lactate [Moles/Vol] 1.6 mmol/L Normal 0.4 - 2.0 [facility] Comment on above: Performed By: #### A FPA4 ####[id number] [place] [address] Oxygen (Bld) [Partial pressure] 387 mm[Hg] High 85 - 95 [facility] Comment on above: Performed By: #### A FPA4 ####[id number] [place] [address] PATIENT TEMPERATURE 37.0 degrees C Normal [facility] Comment on above: Result Comment: NOTE : PATIENT RESULTS ARE NOT CORRECTED FOR TEMPERATURE. Performed By: #### A FPA4 ####[id number] [place] [address] PCO2 56 mmHg High 38 - 42 [facility] Comment on above: Performed By: #### A FPA4 ####[id number] [place] [address] pH (Bld) 7.36 [pH] Low 7.38 - 7.42 [facility] Comment on above: Performed By: #### A FPA4 ####[id number] [place] [address] Potassium [Moles/Vol] 6.0 mmol/L High 3.5 - 5.3 [facility] Comment on above: Performed By: #### A FPA4 ####[id number] [place] [address] SO2 SEE COMMENT Normal 94 - 100 [facility] Comment on above: Result Comment: NOT CALCULATED Performed By: #### A FPA4 ####[id number] [place] [address] Sodium [Moles/Vol] 132 mmol/L Low 136 - 145 [facility] Comment on above: Performed By: #### A FPA4 ####[id number] [place] [address] Anion gap [Moles/Vol] 4 mmol/L Low 10 - 25 [facility] Comment on above: Performed By: #### A FPA4 ####[id number] [place] [address] BASE EXCESS-BLOOD 4.3 mmol/L High -2.0 - 3.0 [facility] [place] Comment on above: Performed By: #### A FPA4 ####[id number] [place] [address] BICARB, CALCULATED 30.3 mmol/L High 22.0 - 26.0 [facility] Comment on above: Performed By: #### A FPA4 ####[id number] [place] [address] CALCIUM,IONIZED 1.10 mmol/L Normal 1.10 - 1.33 [facility] [place] Comment on above: Performed By: #### A FPA4 ####[id number] [place] [address] Chloride [Moles/Vol] 103 mmol/L Normal 98 - 107 [facility] Comment on above: Performed By: #### A FPA4 ####[id number] [place] [address] FIO2 55 % Normal [facility] Comment on above: Performed By: #### A FPA4 ####[id number] [place] [address] Glucose [Mass/Vol] 172 mg/dL High 74 - 99 [facility] Comment on above: Performed By: #### A FPA4 ####[id number] [place] [address] Hematocrit (Bld) [Volume fraction] 40.0 % Low 41.0 - 52.0 [facility] Comment on above: Performed By: #### A FPA4 ####[id number] [place] [address] Lactate [Moles/Vol] 1.2 mmol/L Normal 0.4 - 2.0 [facility] Comment on above: Performed By: #### A FPA4 ####[id number] [place] [address] Oxygen (Bld) [Partial pressure] 467 mm[Hg] High 85 - 95 [facility] Comment on above: Performed By: #### A FPA4 ####[id number] [place] [address] PATIENT TEMPERATURE 37.0 degrees C Normal [facility] Comment on above: Result Comment: NOTE : PATIENT RESULTS ARE NOT CORRECTED FOR TEMPERATURE. Performed By: #### A FPA4 ####[id number] [place] [address] PCO2 50 mmHg High 38 - 42 [facility] Comment on above: Performed By: #### A FPA4 ####[id number] [place] [address] pH (Bld) 7.39 [pH] Normal 7.38 - 7.42 [facility] Comment on above: Performed By: #### A FPA4 ####[id number] [place] [address] Potassium [Moles/Vol] 5.6 mmol/L High 3.5 - 5.3 [facility] Comment on above: Performed By: #### A FPA4 ####[id number] [place] [address] SO2 100 % Normal 94 - 100 [facility] Comment on above: Performed By: #### A FPA4 ####[id number] [place] [address] Sodium [Moles/Vol] 132 mmol/L Low 136 - 145 [facility] Comment on above: Performed By: #### A FPA4 ####[id number] [place] [address] Anion gap [Moles/Vol] 3 mmol/L Low 10 - 25 [facility] Comment on above: Performed By: #### A FPA4 ####[id number] [place] [address] BASE EXCESS-BLOOD 5.7 mmol/L High -2.0 - 3.0 [facility] [place] Comment on above: Performed By: #### A FPA4 ####[id number] [place] [address] BICARB, CALCULATED 33.4 mmol/L High 22.0 - 26.0 [facility] Comment on above: Performed By: #### A FPA4 ####[id number] [place] [address] CALCIUM,IONIZED 1.19 mmol/L Normal 1.10 - 1.33 [facility] [place] Comment on above: Performed By: #### A FPA4 ####[id number] [place] [address] Chloride [Moles/Vol] 103 mmol/L Normal 98 - 107 [facility] Comment on above: Performed By: #### A FPA4 ####[id number] [place] [address] FIO2 56 % Normal [facility] Comment on above: Performed By: #### A FPA4 ####[id number] [place] [address] Glucose [Mass/Vol] 108 mg/dL High 74 - 99 [facility] Comment on above: Performed By: #### A FPA4 ####[id number] [place] [address] Hematocrit (Bld) [Volume fraction] 40.0 % Low 41.0 - 52.0 [facility] Comment on above: Performed By: #### A FPA4 ####[id number] [place] [address] Lactate [Moles/Vol] 0.9 mmol/L Normal 0.4 - 2.0 [facility] Comment on above: Performed By: #### A FPA4 ####[id number] [place] [address] Oxygen (Bld) [Partial pressure] 235 mm[Hg] High 85 - 95 [facility] Comment on above: Performed By: #### A FPA4 ####[id number] [place] [address] PATIENT TEMPERATURE 37.0 degrees C Normal [facility] Comment on above: Result Comment: NOTE : PATIENT RESULTS ARE NOT CORRECTED FOR TEMPERATURE. Performed By: #### A FPA4 ####[id number] [place] [address] PCO2 62 mmHg High 38 - 42 [facility] Comment on above: Performed By: #### A FPA4 ####[id number] [place] [address] pH (Bld) 7.34 [pH] Low 7.38 - 7.42 [facility] Comment on above: Performed By: #### A FPA4 ####[id number] [place] [address] Potassium [Moles/Vol] 4.8 mmol/L Normal 3.5 - 5.3 [facility] Comment on above: Performed By: #### A FPA4 ####[id number] [place] [address] SO2 100 % Normal 94 - 100 [facility] Comment on above: Performed By: #### A FPA4 ####[id number] [place] [address] Sodium [Moles/Vol] 135 mmol/L Low 136 - 145 [facility] Comment on above: Performed By: #### A FPA4 ####[id number] [place] [address] CALCIUM, IONIZEDon 3 CALCIUM,IONIZED 1.07 mmol/L Low 1.10 - 1.33 [facility], [place] Comment on above: Result Comment: The performance characteristics of ionized calcium tested in heparinized plasma or serum have been validated by the individual laboratory site where testing is performed. Testing on heparinized plasma or serum is not approved by the FDA; however, such approval is not necessary. Performed By: #### I ONC1 ####[id number] [place] [address] CBCon 08-18-2022 Erythrocyte distribution width (RBC) [Ratio] 13.8 % Normal 11.5 - 14.5 [facility] Comment on above: Performed By: #### C BC ####[id number] [place] [address] Hematocrit (Bld) [Volume fraction] 40.5 % Low 41.0 - 52.0 [facility] Comment on above: Performed By: #### C BC ####[id number] [place] [address] Hemoglobin (Bld) [Mass/Vol] 12.9 g/dL Low 13.5 - 17.5 [facility] Comment on above: Performed By: #### C BC ####[id number] [place] [address] MCHC (RBC) [Mass/Vol] 31.9 g/dL Low 32.0 - 36.0 [facility] Comment on above: Performed By: #### C BC ####[id number] [place] [address] MCV (RBC) [Entitic vol] 99 fL Normal 80 - 100 [facility] Comment on above: Performed By: #### C BC ####[id number] [place] [address] NUCLEATED RBC 0.0 /100 WBC Normal 0.0-0.0 [facility] Comment on above: Performed By: #### C BC ####[id number] [place] [address] Platelets (Bld) [#/Vol] 256 10*3/uL Normal 150 - 450 [facility] Comment on above: Performed By: #### C BC ####[id number] [place] [address] RBC 4.11 x10E12/L Low 4.50 - 5.90 [facility] Comment on above: Performed By: #### C BC ####[id number] [place] [address] WBC (Bld) [#/Vol] 42.5 10*3/uL High 4.4 - 11.3 [facility] Comment on above: Performed By: #### C BC ####[id number] [place] [address] Erythrocyte distribution width (RBC) [Ratio] 13.7 % Normal 11.5 - 14.5 [facility] Comment on above: Performed By: #### C BC ####[id number] [place] [address] Hematocrit (Bld) [Volume fraction] 41.2 % Normal 41.0 - 52.0 [facility] Comment on above: Performed By: #### C BC ####[id number] [place] [address] Hemoglobin (Bld) [Mass/Vol] 12.5 g/dL Low 13.5 - 17.5 [facility] Comment on above: Performed By: #### C BC ####[id number] [place] [address] MCHC (RBC) [Mass/Vol] 30.3 g/dL Low 32.0 - 36.0 [facility] Comment on above: Performed By: #### C BC ####[id number] [place] [address] MCV (RBC) [Entitic vol] 101 fL High 80 - 100 [facility] Comment on above: Performed By: #### C BC ####[id number] [place] [address] NUCLEATED RBC 0.0 /100 WBC Normal 0.0-0.0 [facility] Comment on above: Performed By: #### C BC ####[id number] [place] [address] Platelets (Bld) [#/Vol] 188 10*3/uL Normal 150 - 450 [facility] Comment on above: Performed By: #### C BC ####[id number] [place] [address] RBC 4.08 x10E12/L Low 4.50 - 5.90 [facility] Comment on above: Performed By: #### C BC ####[id number] [place] [address] WBC (Bld) [#/Vol] 9.9 10*3/uL Normal 4.4 - 11.3 [facility] Comment on above: Performed By: #### C BC ####[id number] [place] [address] CBC AND DIFFERENTIALon 08-18 % AUTOMATED IMMATURE GRAN 2.3 % High 0.0 - 0.9 [facility] Comment on above: Result Comment: Nicki ture Granulocyte Count (IG) includes promyelocytes, myelocytes and metamyelocytes but does not include bands. Percent differential counts (%) should be interpreted in the context of the absolute cell counts (cells/L). Performed By: #### C BCDF ####[id number] [place] [address] Basophils (Bld) [#/Vol] 0.11 10*3/uL High 0.00 - 0.10 [facility] Comment on above: Performed By: #### C BCDF ####[id number] [place] [address] Basophils/100 WBC (Bld) 0.3 % Normal 0.0 - 2.0 [facility] Comment on above: Performed By: #### C BCDF ####[id number] [place] [address] Eosinophils (Bld) [#/Vol] 0.01 10*3/uL Normal 0.00 - 0.70 [facility] Comment on above: Performed By: #### C BCDF ####[id number] [place] [address] Eosinophils/100 WBC (Bld) 0.0 % Normal 0.0 - 6.0 [facility] Comment on above: Performed By: #### C BCDF ####[id number] [place] [address] Erythrocyte distribution width (RBC) [Ratio] 13.5 % Normal 11.5 - 14.5 [facility] Comment on above: Performed By: #### C BCDF ####[id number] [place] [address] Hematocrit (Bld) [Volume fraction] 35.9 % Low 41.0 - 52.0 [facility] Comment on above: Performed By: #### C BCDF ####[id number] [place] [address] Hemoglobin (Bld) [Mass/Vol] 12.0 g/dL Low 13.5 - 17.5 [facility] Comment on above: Performed By: #### C BCDF ####[id number] [place] [address] Lymphocytes (Bld) [#/Vol] 0.80 10*3/uL Low 1.20 - 4.80 [facility] Comment on above: Performed By: #### C BCDF ####[id number] [place] [address] Lymphocytes/100 WBC (Bld) 2.2 % Normal 13.0 - 44.0 [facility] Comment on above: Performed By: #### C BCDF ####[id number] [place] [address] MCHC (RBC) [Mass/Vol] 33.4 g/dL Normal 32.0 - 36.0 [facility] Comment on above: Performed By: #### C BCDF ####[id number] [place] [address] MCV (RBC) [Entitic vol] 98 fL Normal 80 - 100 [facility] Comment on above: Performed By: #### C BCDF ####[id number] [place] [address] Monocytes (Bld) [#/Vol] 2.04 10*3/uL High 0.10 - 1.00 [facility] Comment on above: Performed By: #### C BCDF ####[id number] [place] [address] Monocytes/100 WBC (Bld) 5.5 % Normal 2.0 - 10.0 [facility] Comment on above: Performed By: #### C BCDF ####[id number] [place] [address] Neutrophils (Bld) [#/Vol] 33.28 10*3/uL High 1.20 - 7.70 [facility] Comment on above: Performed By: #### C BCDF ####[id number] [place] [address] Neutrophils/100 WBC (Bld) 89.7 % Normal 40.0 - 80.0 [facility] Comment on above: Performed By: #### C BCDF ####[id number] [place] [address] NUCLEATED RBC 0.0 /100 WBC Normal 0.0-0.0 [facility] Comment on above: Performed By: #### C BCDF ####[id number] [place] [address] Platelets (Bld) [#/Vol] 225 10*3/uL Normal 150 - 450 [facility] Comment on above: Performed By: #### C BCDF ####[id number] [place] [address] RBC 3.65 x10E12/L Low 4.50 - 5.90 [facility] Comment on above: Performed By: #### C BCDF ####[id number] [place] [address] WBC (Bld) [#/Vol] 37.1 10*3/uL High 4.4 - 11.3 [facility] Comment on above: Performed By: #### C BCDF ####[id number] [place] [address] COOX PANEL, ARTERIALon 08-18 CO HGB 1.6 % Abnormal [facility] Comment on above: Result Comment: REF VALUESNONSMOKERS 0.5-1.5%SMOKERS 0.5-10.0% Performed By: #### C OXA1 ####[id number] [place] [address] DEOXY HGB 0.6 % Normal 0.0 - 5.0 [facility] Comment on above: Performed By: #### C OXA1 ####[id number] [place] [address] Hemoglobin (Bld) [Mass/Vol] 13.2 g/dL Low 13.5 - 17.5 [facility] Comment on above: Performed By: #### C OXA1 ####[id number] [place] [address] Performed By: #### A FPA4 ####[id number] [place] [address] MET HGB 0.9 % Normal 0.0 - 1.5 [facility] Comment on above: Performed By: #### C OXA1 ####[id number] [place] [address] OXY HGB 96.8 % Normal 94.0 - 98.0 [facility] Comment on above: Performed By: #### C OXA1 ####[id number] [place] [address] Performed By: #### A FPA4 ####[id number] 99[address] CO HGB 1.9 % Abnormal [facility] Comment on above: Result Comment: REF VALUESNONSMOKERS 0.5-1.5%SMOKERS 0.5-10.0% Performed By: #### C OXA1 ####[id number] [place] [address] DEOXY HGB 0.0 % Normal 0.0 - 5.0 [facility] Comment on above: Performed By: #### C OXA1 ####[id number] [place] [address] Hemoglobin (Bld) [Mass/Vol] 12.6 g/dL Low 13.5 - 17.5 [facility] Comment on above: Performed By: #### C OXA1 ####[id number] [place] [address] Performed By: #### A FPA4 ####[id number] [place] [address] MET HGB 0.6 % Normal 0.0 - 1.5 [facility] Comment on above: Performed By: #### C OXA1 ####[id number] [address] OXY HGB 97.4 % Normal 94.0 - 98.0 [facility] Comment on above: Performed By: #### C OXA1 ####[id number] [address] Performed By: #### A FPA4 ####[id number] CO HGB 1.7 % Abnormal [facility] Comment on above: Result Comment: REF VALUESNONSMOKERS 0.5-1.5%SMOKERS 0.5-10.0% Performed By: #### C OXA1 ####[id number] [address] DEOXY HGB 0.3 % Normal 0.0 - 5.0 [facility] Comment on above: Performed By: #### C OXA1 ####[id number] [address] Hemoglobin (Bld) [Mass/Vol] 11.9 g/dL Low 13.5 - 17.5 [facility] Comment on above: Performed By: #### C OXA1 ####[id number] [address] Performed By: #### A FPA4 ####[id number] MET HGB 0.6 % Normal 0.0 - 1.5 [facility] Comment on above: Performed By: #### C OXA1 ####[id number] [address] OXY HGB 97.4 % Normal 94.0 - 98.0 [facility] Comment on above: Performed By: #### C OXA1 ####[id number] [address] Performed By: #### A FPA4 ####[id number] [address] CO HGB SEE COMMENT Normal [facility] Comment on above: Result Comment: REF VALUESNONSMOKERS 0.5-1.5%SMOKERS 0.5-10.0%NOT CALCULATED Performed By: #### C OXA1 ####[id number] [place] [address] DEOXY HGB SEE COMMENT Normal 0.0 - 5.0 [facility] Comment on above: Result Comment: NOT CALCULATED Performed By: #### C OXA1 ####[id number] [place] [address] MET HGB SEE COMMENT Normal 0.0 - 1.5 [facility] Comment on above: Result Comment: NOT CALCULATED Performed By: #### C OXA1 ####[id number] [place] [address] CO HGB 1.7 % Abnormal [facility] Comment on above: Result Comment: REF VALUESNONSMOKERS 0.5-1.5%SMOKERS 0.5-10.0% Performed By: #### C OXA1 ####[id number] [place] [address] DEOXY HGB 0.2 % Normal 0.0 - 5.0 [facility] Comment on above: Performed By: #### C OXA1 ####[id number] [place] [address] MET HGB 0.7 % Normal 0.0 - 1.5 [facility] Comment on above: Performed By: #### C OXA1 ####[id number] [place] [address] CO HGB 1.4 % Normal [facility] Comment on above: Result Comment: REF VALUESNONSMOKERS 0.5-1.5%SMOKERS 0.5-10.0% Performed By: #### C OXA1 ####[id number] [place] [address] DEOXY HGB 1.0 % Normal 0.0 - 5.0 [facility] Comment on above: Performed By: #### C OXA1 ####[id number] [place] [address] MET HGB 0.9 % Normal 0.0 - 1.5 [facility] Comment on above: Performed By: #### C OXA1 ####[id number] 99[address] CO HGB 1.7 % Abnormal [facility] Comment on above: Result Comment: REF VALUESNONSMOKERS 0.5-1.5%SMOKERS 0.5-10.0% Performed By: #### C OXA1 ####[id number] 99[address] DEOXY HGB 0.2 % Normal 0.0 - 5.0 [facility] Comment on above: Performed By: #### C OXA1 ####[id number] [place] [address] Hemoglobin (Bld) [Mass/Vol] 12.2 g/dL Low 13.5 - 17.5 [facility] Comment on above: Performed By: #### C OXA1 ####[id number] [place] [address] Performed By: #### A FPA4 ####[id number] [address] MET HGB 0.8 % Normal 0.0 - 1.5 [facility] Comment on above: Performed By: #### C OXA1 ####[id number] 99[address] OXY HGB 97.2 % Normal 94.0 - 98.0 [facility] Comment on above: Performed By: #### C OXA1 ####[id number] [place] [address] Performed By: #### A FPA4 ####[id number] 99[address] CO HGB SEE COMMENT Normal [facility] Comment on above: Result Comment: REF VALUESNONSMOKERS 0.5-1.5%SMOKERS 0.5-10.0%NOT CALCULATED Performed By: #### C OXA1 ####[id number] [address] DEOXY HGB SEE COMMENT Normal 0.0 - 5.0 [facility] Comment on above: Result Comment: NOT CALCULATED Performed By: #### C OXA1 ####[id number] 99[address] HGB SEE COMMENT Normal 13.5 - 17.5 [facility] Comment on above: Result Comment: NOT CALCULATED Performed By: #### C OXA1 ####[id number] [address] Performed By: #### A FPA4 ####[id number] [address] MET HGB SEE COMMENT Normal 0.0 - 1.5 [facility] Comment on above: Result Comment: NOT CALCULATED Performed By: #### C OXA1 ####[id number] 99[address] OXY HGB SEE COMMENT Normal 94.0 - 98.0 [facility] Comment on above: Result Comment: NOT CALCULATED Performed By: #### C OXA1 ####[id number] [address] Performed By: #### A FPA4 ####[id number] [place] [address] CO HGB 1.5 % Normal [facility] Comment on above: Result Comment: REF VALUESNONSMOKERS 0.5-1.5%SMOKERS 0.5-10.0% Performed By: #### C OXA1 ####[id number] [address] DEOXY HGB 0.3 % Normal 0.0 - 5.0 [facility] Comment on above: Performed By: #### C OXA1 ####[id number] 99[address] Hemoglobin (Bld) [Mass/Vol] 13.2 g/dL Low 13.5 - 17.5 [facility] Comment on above: Performed By: #### C OXA1 ####[id number] [address] Performed By: #### A FPA4 ####[id number] [place] [address] MET HGB 0.9 % Normal 0.0 - 1.5 [facility] Comment on above: Performed By: #### C OXA1 ####[id number] [place] [address] OXY HGB 97.2 % Normal 94.0 - 98.0 [facility] Comment on above: Performed By: #### C OXA1 ####[id number] [place] [address] Performed By: #### A FPA4 ####[id number] [place] [address] CO HGB 1.7 % Abnormal [facility] Comment on above: Result Comment: REF VALUESNONSMOKERS 0.5-1.5%SMOKERS 0.5-10.0% Performed By: #### C OXA1 ####[id number] [place] [address] DEOXY HGB 0.2 % Normal 0.0 - 5.0 [facility] Comment on above: Performed By: #### C OXA1 ####[id number] [id number] Hemoglobin (Bld) [Mass/Vol] 13.2 g/dL Low 13.5 - 17.5 [facility] Comment on above: Performed By: #### C OXA1 ####[id number] [place] [address] Performed By: #### A FPA4 ####[id number] MET HGB 0.7 % Normal 0.0 - 1.5 [facility] Comment on above: Performed By: #### C OXA1 ####[id number] [place] [address] OXY HGB 97.5 % Normal 94.0 - 98.0 [facility] Comment on above: Performed By: #### C OXA1 ####[id number] [place] [address] Performed By: #### A FPA4 ####[id number] [place] [address] COOX PANEL,VENOUSon 08-19-19 23 CO HGB 1.9 % Abnormal [facility] Comment on above: Result Comment: REF VALUESNONSMOKERS 0.5-1.5%SMOKERS 0.5-10.0% Performed By: #### C OXV1 ####[id number] [place] [address] MET HGB 0.9 % Normal 0.0 - 1.5 [facility] Comment on above: Performed By: #### C OXV1 ####[id number] [place] [address] Cult, Fungus +smearon 2022 Fungus identified Cx Nom (Unsp spec) [facility] Work Phone: EMR ADDONon 08-18-2022 ADDON CONFIRMATION REQUEST REC'D Normal [facility] Comment on above: Performed By: #### E MRAD ####NO LOCATION NEEDED FUNGAL CULTURE/SM, MISCon FUNGAL CULTURE/SM, MISC Normal [facility] Comment on above: Performed By: #### F [employer] ####[id number] [place] [address] GLUCOSE-POCTon 08-18-2022 Glucose [Mass/Vol] 253 mg/dL High 74 - 99 [facility] Comment on above: Performed By: #### G EDI ####[id number] [place] [address] Glucose [Mass/Vol] 148 mg/dL High 74 - 99 [facility] Comment on above: Performed By: #### G EDI ####[id number] [place] [address] Glucose [Mass/Vol] 181 mg/dL High 74 - 99 [facility] Comment on above: Performed By: #### G EDI ####[id number] [place] [address] HEPARIN ASSAY,UFHon 08-19-19 23 HEPARIN ASSAY,UFH 0.4 IU/mL Normal [facility], [place] Comment on above: Result Comment: The therapeutic reference range for UFH may be either 0.3-0.6 IU/mL or 0.3-0.7 IU/mL based on the clinical setting for anticoagulant therapy and the associated nomogram used. For heparin dosing guidelines based on clinical scenario and Heparin Assay results, please refer to local Pharmacy and the [facility] Guidelines for Anticoagulation therapy available on the [facility] intranet at:[email or web address] Performed By: #### H AUF ####[id number] [place] [address] HEPATIC FUNCTION PANELon ALP [Catalytic activity/Vol] 60 U/L Normal 33 - 120 [facility] Comment on above: Performed By: #### H EPFP ####[id number] [place] [address] ALT [Catalytic activity/Vol] 22 U/L Normal 10 - 52 [facility] Comment on above: Result Comment: Kristi ents treated with Sulfasalazine may generate falsely decreased results for ALT. Performed By: #### H EPFP ####[id number] [place] [address] AST [Catalytic activity/Vol] 31 U/L Normal 9 - 39 [facility] Comment on above: Performed By: #### H EPFP ####[id number] [place] [address] Bilirubin [Mass/Vol] 0.8 mg/dL Normal 0.0 - 1.2 [facility] Comment on above: Performed By: #### H EPFP ####[id number] [place] [address] Bilirubin.indirect [Mass/Vol] 0.5 mg/dL High 0.0 - 0.3 [facility] Comment on above: Performed By: #### H EPFP ####[id number] [place] [address] Protein [Mass/Vol] 5.4 g/dL Low 6.4 - 8.2 [facility] Comment on above: Performed By: #### H EPFP ####[id number] [place] [address] Intraoperative Transesophage al Echoon 08-18-2022 Intraoperative Transesophageal Echo Normal [facility] MAGNESIUMon 08-18-2022 Magnesium [Mass/Vol] 1.44 mg/dL Low 1.60 - 2.40 [facility] Comment on above: Performed By: #### M G ####[id number] [place] [address] Magnesium [Mass/Vol] 2.06 mg/dL Normal 1.60 - 2.40 [facility] Comment on above: Performed By: #### M G ####[id number] [place] [address] MISCELLANEOUS CULT./SM.BACT. on 08-18-2022 MISCELLANEOUS CULT./SM.BACT. Normal [facility] Comment on above: Performed By: #### M ISCC ####[id number] [place] [address] MV FULL PANELon 08-18-2022 Anion gap [Moles/Vol] 19 mmol/L Normal 10 - 25 [facility] Comment on above: Order Comment: RB TO ANDREINA FISHER, 08/18/2022 18:08 Performed By: #### M VPA4 ####[id number] [place] [address] BASE EXCESS-BLOOD -8.3 mmol/L Normal [facility] Comment on above: Order Comment: RB TO ANDREINA FISHER, 08/18/2022 18:08 Performed By: #### M VPA4 ####[id number] [place] [address] BICARB, CALCULATED 19.6 mmol/L Normal [facility] Comment on above: Order Comment: RB TO ANDREINA FISHER, 08/18/2022 18:08 Performed By: #### M VPA4 ####[id number] [place] [address] CALCIUM,IONIZED 1.15 mmol/L Normal 1.10 - 1.33 [facility], [place] Comment on above: Order Comment: RB TO ANDREINA FISHER, 08/18/2022 18:08 Performed By: #### M VPA4 ####[id number] [place] [address] Chloride [Moles/Vol] 101 mmol/L Normal 98 - 107 [facility] Comment on above: Order Comment: RB TO ANDREINA VELAJAI, 08/18/2022 18:08 Performed By: #### M VPA4 ####[id number] [place] [address] Glucose [Mass/Vol] 217 mg/dL High 74 - 99 [facility] Comment on above: Order Comment: RB TO ANDREINA PHILLIP, 08/18/2022 18:08 Performed By: #### M VPA4 ####[id number] [place] [address] Hematocrit (Bld) [Volume fraction] 37.0 % Low 41.0 - 52.0 [facility] Comment on above: Order Comment: RB TO ANDREINA FISHER, 08/18/2022 18:08 Performed By: #### M VPA4 ####[id number] [place] [address] Hemoglobin (Bld) [Mass/Vol] 12.3 g/dL Low 13.5 - 17.5 [facility] Comment on above: Order Comment: RB TO ANDREINA FISHER, 08/18/2022 18:08 Performed By: #### M VPA4 ####[id number] [place] [address] Lactate [Moles/Vol] 10.9 mmol/L Critically high 0.4 - 2.0 [facility] Comment on above: Order Comment: RB TO ANDREINA PHILLIP, 08/18/2022 18:08 Result Comment: RB T O ANDREINA FISHER, 08/18/2022 18:08 Performed By: #### M VPA4 ####[id number] [place] [address] OXY HGB 81.5 % High 45.0 - 75.0 [facility] Comment on above: Order Comment: RB TO ANDREINA FISHER, 08/18/2022 18:08 Performed By: #### M VPA4 ####[id number] [place] [address] Oxygen (Bld) [Partial pressure] 57 mm[Hg] Normal [facility] Comment on above: Order Comment: RB TO ANDREINA VELAJAI, 08/18/2022 18:08 Performed By: #### M VPA4 ####[id number] [place] [address] PATIENT TEMPERATURE 37.0 degrees Normal [facility] Comment on above: Order Comment: RB TO ANDREINA PHILLIP, 08/18/2022 18:08 Result Comment: NOTE : PATIENT RESULTS ARE NOT CORRECTED FOR TEMPERATURE. Performed By: #### M VPA4 ####[id number] [place] [address] PCO2 49 mmHg Normal [facility] Comment on above: Order Comment: RB TO ANDREINA FISHER, 08/18/2022 18:08 Performed By: #### M VPA4 ####[id number] [place] [address] pH (Bld) 7.21 [pH] Normal [facility] Comment on above: Order Comment: RB TO ANDREINA FISHER, 08/18/2022 18:08 Performed By: #### M VPA4 ####[id number] [place] [address] Potassium [Moles/Vol] 3.6 mmol/L Normal 3.5 - 5.3 [facility] Comment on above: Order Comment: RB TO ANDREINA FISHER, 08/18/2022 18:08 Performed By: #### M VPA4 ####[id number] [place] [address] SO2 84 % Normal [facility] Comment on above: Order Comment: RB TO ANDREINA FISHER, 08/18/2022 18:08 Performed By: #### M VPA4 ####[id number] [place] [address] Sodium [Moles/Vol] 136 mmol/L Normal 136 - 145 [facility] Comment on above: Order Comment: RB TO ANDREINA FISHER, 08/18/2022 18:08 Performed By: #### M VPA4 ####[id number] [place] [address] Anion gap [Moles/Vol] 18 mmol/L Normal 10 - 25 [facility] Comment on above: Performed By: #### M VPA4 ####[id number] [place] [address] BASE EXCESS-BLOOD -7.6 mmol/L Normal [facility] Comment on above: Performed By: #### M VPA4 ####[id number] [place] [address] BICARB, CALCULATED 21.3 mmol/L Normal [facility] Comment on above: Performed By: #### M VPA4 ####[id number] [place] [address] CALCIUM,IONIZED 1.14 mmol/L Normal 1.10 - 1.33 [facility], [place] Comment on above: Performed By: #### M VPA4 ####[id number] [place] [address] Chloride [Moles/Vol] 101 mmol/L Normal 98 - 107 [facility] Comment on above: Performed By: #### M VPA4 ####[id number] [place] [address] Glucose [Mass/Vol] 175 mg/dL High 74 - 99 [facility] Comment on above: Performed By: #### M VPA4 ####[id number] [place] [address] Hematocrit (Bld) [Volume fraction] 39.0 % Low 41.0 - 52.0 [facility] Comment on above: Performed By: #### M VPA4 ####[id number] [place] [address] Hemoglobin (Bld) [Mass/Vol] 13.0 g/dL Low 13.5 - 17.5 [facility] Comment on above: Performed By: #### M VPA4 ####[id number] [place] [address] Lactate [Moles/Vol] 7.8 mmol/L Critically high 0.4 - 2.0 [facility] Comment on above: Performed By: #### M VPA4 ####[id number] [place] [address] OXY HGB 73.8 % Normal 45.0 - 75.0 [facility] Comment on above: Performed By: #### M VPA4 ####[id number] [place] [address] Oxygen (Bld) [Partial pressure] 53 mm[Hg] Normal [facility] Comment on above: Performed By: #### M VPA4 ####[id number] [place] [address] PATIENT TEMPERATURE 37.0 degrees Normal [facility] Comment on above: Result Comment: NOTE : PATIENT RESULTS ARE NOT CORRECTED FOR TEMPERATURE. Performed By: #### M VPA4 ####[id number] [place] [address] PCO2 57 mmHg Normal [facility] Comment on above: Performed By: #### M VPA4 ####[id number] [place] [address] pH (Bld) 7.18 [pH] Normal [facility] Comment on above: Performed By: #### M VPA4 ####[id number] [place] [address] Potassium [Moles/Vol] 3.6 mmol/L Normal 3.5 - 5.3 [facility] Comment on above: Performed By: #### M VPA4 ####[id number] [place] [address] SO2 76 % Normal [facility] Comment on above: Performed By: #### M VPA4 ####[id number] [place] [address] Sodium [Moles/Vol] 137 mmol/L Normal 136 - 145 [facility] Comment on above: Performed By: #### M VPA4 ####[id number] [place] [address] Operative Reports - CMCon Operative Reports - [facility] [place] Normal [facility] PLATELETSon 08-18-2022 PLATELETS ORDER RECD Normal [facility] Comment on above: Result Comment: If t his patient is Rh Negative and if the Plateletproduct transfused is Rh Positive, review the useof WinRho Prophylaxis for this patient. Performed By: #### P LT ####[id number] [place] [address] Preop Checkliston 08-18-2022 Preop Checklist Normal [facility] RENAL FUNCTION PANELon 08-18 Albumin [Mass/Vol] 3.3 g/dL Low 3.4 - 5.0 [facility] Comment on above: Performed By: #### R ENAL ####[id number] [place] [address] Performed By: #### H EPFP ####[id number] [place] [address] Anion gap [Moles/Vol] 24 mmol/L High 10 - 20 [facility] Comment on above: Performed By: #### R ENAL ####[id number] [place] [address] Calcium [Mass/Vol] 8.6 mg/dL Normal 8.6 - 10.6 [facility] Comment on above: Performed By: #### R ENAL ####[id number] [place] [address] Chloride [Moles/Vol] 103 mmol/L Normal 98 - 107 [facility] Comment on above: Performed By: #### R ENAL ####[id number] [place] [address] Creatinine [Mass/Vol] 1.86 mg/dL High 0.50 - 1.30 [facility] Comment on above: Performed By: #### R ENAL ####[id number] [place] [address] GFR/1.73 sq M.predicted among non-blacks MDRD (S/P/Bld) [Vol rate/Area] 45 mL/min/{1.73_m2} Abnormal >90 [facility] Comment on above: Result Comment: CALC ULATIONS OF ESTIMATED GFR ARE PERFORMED USING THE 2020 CKD-EPI STUDY REFIT EQUATION WITHOUT THE RACE VARIABLE FOR THE IDMS-TRACEABLE CREATININE METHODS.https://jasn.asnjournals.org/content//A SN.8130701874 Performed By: #### R ENAL ####[id number] [place] [address] Glucose [Mass/Vol] 223 mg/dL High 74 - 99 [facility] Comment on above: Performed By: #### R ENAL ####[id number] [place] [address] HCO3 (Bld) [Moles/Vol] 19 mmol/L Low 21 - 32 [facility] Comment on above: Performed By: #### R ENAL ####[id number] [place] [address] Phosphate [Mass/Vol] 1.8 mg/dL Low 2.5 - 4.9 [facility] Comment on above: Result Comment: The performance characteristics of phosphorus testing in heparinized plasma have been validated by the individual laboratory site where testing is performed. Testing on heparinized plasma is not approved by the FDA; however, such approval is not necessary. Performed By: #### R ENAL ####[id number] [place] [address] Potassium [Moles/Vol] 3.6 mmol/L Normal 3.5 - 5.3 [facility] Comment on above: Performed By: #### R ENAL ####[id number] [place] [address] Sodium [Moles/Vol] 142 mmol/L Normal 136 - 145 [facility] Comment on above: Performed By: #### R ENAL ####[id number] [place] [address] Urea nitrogen [Mass/Vol] 20 mg/dL Normal 6 - 23 [facility] Comment on above: Performed By: #### R ENAL ####[id number] [place] [address] Anion gap [Moles/Vol] 14 mmol/L Normal 10 - 20 [facility] Comment on above: Order Comment: POTAS SIUM AND CALCIUM Called- RB to [facility], 08/18/2022 16:11 Performed By: #### R ENAL ####[id number] [place] [address] Calcium [Mass/Vol] 4.8 mg/dL Critically low 8.6 - 10.6 [facility] Comment on above: Order Comment: POTAS SIUM AND CALCIUM Called- RB to [facility] [place], 08/18/2022 16:11 Result Comment: POTA SSIUM AND CALCIUM Called- RB to [facility] [place], 08/18/2022 16:11 Performed By: #### R ENAL ####[id number] [place] [address] Chloride [Moles/Vol] 122 mmol/L High 98 - 107 [facility] Comment on above: Order Comment: POTAS SIUM AND CALCIUM Called- RB to [place] [place], 08/18/2022 16:11 Performed By: #### R ENAL ####[id number] [place] [address] HCO3 (Bld) [Moles/Vol] 13 mmol/L Low 21 - 32 [facility] Comment on above: Order Comment: POTAS SIUM AND CALCIUM Called- RB to [facility] [place], 08/18/2022 16:11 Performed By: #### R ENAL ####[id number] [place] [address] Potassium [Moles/Vol] 2.3 mmol/L Critically low 3.5 - 5.3 [facility] Comment on above: Order Comment: POTAS SIUM AND CALCIUM Called- RB to [facility] [place], 08/18/2022 16:11 Result Comment: POTA SSIUM AND CALCIUM Called- RB to [facility] [place], 08/18/2022 16:11 Performed By: #### R ENAL ####[id number] [place] [address] Sodium [Moles/Vol] 147 mmol/L High 136 - 145 [facility] Comment on above: Order Comment: POTAS SIUM AND CALCIUM Called- RB to [facility], 08/18/2022 16:11 Performed By: #### R ENAL ####[id number] [place] [address] Albumin [Mass/Vol] 1.6 g/dL Low 3.4 - 5.0 [facility] Comment on above: Order Comment: POTAS SIUM AND CALCIUM Called- RB to [facility] [place], 08/18/2022 16:11 Performed By: #### R ENAL ####[id number] [place] [address] Creatinine [Mass/Vol] 1.02 mg/dL Normal 0.50 - 1.30 [facility] Comment on above: Order Comment: POTAS SIUM AND CALCIUM Called- RB to [facility] [place], 08/18/2022 16:11 Performed By: #### R ENAL ####[id number] [place] [address] eGFR MALE >90 Normal >90 [facility] Comment on above: Order Comment: POTAS SIUM AND CALCIUM Called- RB to [facility], 08/18/2022 16:11 Result Comment: CALC ULATIONS OF ESTIMATED GFR ARE PERFORMED USING THE 2020 CKD-EPI STUDY REFIT EQUATION WITHOUT THE RACE VARIABLE FOR THE IDMS-TRACEABLE CREATININE METHODS.https://jasn.asnjournals.org/content//A SN.1522058384 Performed By: #### R ENAL ####[id number] [place] [address] Glucose [Mass/Vol] 94 mg/dL Normal 74 - 99 [facility] Comment on above: Order Comment: POTAS SIUM AND CALCIUM Called- RB to [facility], 08/18/2022 16:11 Performed By: #### R ENAL ####[id number] [place] [address] Phosphate [Mass/Vol] 2.4 mg/dL Low 2.5 - 4.9 [facility] Comment on above: Order Comment: POTAS SIUM AND CALCIUM Called- RB to [facility], 08/18/2022 16:11 Result Comment: The performance characteristics of phosphorus testing in heparinized plasma have been validated by the individual laboratory site where testing is performed. Testing on heparinized plasma is not approved by the FDA; however, such approval is not necessary. Performed By: #### R ENAL ####[id number] [place] [address] Urea nitrogen [Mass/Vol] 12 mg/dL Normal 6 - 23 [facility] Comment on above: Order Comment: POTAS SIUM AND CALCIUM Called- RB to [facility], 08/18/2022 16:11 Performed By: #### R ENAL ####[id number] [place] [address] Albumin [Mass/Vol] 3.1 g/dL Low 3.4 - 5.0 [facility] Comment on above: Performed By: #### R ENAL ####[id number] [place] [address] Anion gap [Moles/Vol] 12 mmol/L Normal 10 - 20 [facility] Comment on above: Performed By: #### R ENAL ####[id number] [place] [address] Calcium [Mass/Vol] 8.9 mg/dL Normal 8.6 - 10.6 [facility] Comment on above: Performed By: #### R ENAL ####[id number] [place] [address] Chloride [Moles/Vol] 102 mmol/L Normal 98 - 107 [facility] Comment on above: Performed By: #### R ENAL ####[id number] [place] [address] Creatinine [Mass/Vol] 1.39 mg/dL High 0.50 - 1.30 [facility] Comment on above: Performed By: #### R ENAL ####[id number] [place] [address] GFR/1.73 sq M.predicted among non-blacks MDRD (S/P/Bld) [Vol rate/Area] 64 mL/min/{1.73_m2} Normal >90 [facility] Comment on above: Result Comment: CALC ULATIONS OF ESTIMATED GFR ARE PERFORMED USING THE 2020 CKD-EPI STUDY REFIT EQUATION WITHOUT THE RACE VARIABLE FOR THE IDMS-TRACEABLE CREATININE METHODS.https://jasn.asnjournals.org/content//A SN.1003289318 Performed By: #### R ENAL ####[id number] [place] [address] Glucose [Mass/Vol] 98 mg/dL Normal 74 - 99 [facility] Comment on above: Performed By: #### R ENAL ####[id number] [place] [address] HCO3 (Bld) [Moles/Vol] 32 mmol/L Normal 21 - 32 [facility] Comment on above: Performed By: #### R ENAL ####[id number] [place] [address] Phosphate [Mass/Vol] 5.3 mg/dL High 2.5 - 4.9 [facility] Comment on above: Result Comment: The performance characteristics of phosphorus testing in heparinized plasma have been validated by the individual laboratory site where testing is performed. Testing on heparinized plasma is not approved by the FDA; however, such approval is not necessary. Performed By: #### R ENAL ####[id number] [place] [address] Potassium [Moles/Vol] 4.7 mmol/L Normal 3.5 - 5.3 [facility] Comment on above: Performed By: #### R ENAL ####[id number] [place] [address] Sodium [Moles/Vol] 141 mmol/L Normal 136 - 145 [facility] Comment on above: Performed By: #### R ENAL ####[id number] [place] [address] Urea nitrogen [Mass/Vol] 19 mg/dL Normal 6 - 23 [facility] Comment on above: Performed By: #### R ENAL ####[id number] [place] [address] TH CHEST 1 VIEWon 08-18-2022 TH CHEST [address] [facility] Surgical Pathology Depar tmenton 08-18-2022 [facility] Surgical Pathology Department Normal [facility] Comment on above: Performed By: #### U HCS ####[facility] Surgical Pathology [id number] [place] [address] VENOUS FULL PANELon 08-19-19 23 Anion gap [Moles/Vol] 22 mmol/L Normal 10 - 25 [facility] Comment on above: Order Comment: PHVEN LACTV CALLED TO LAURA BRAD RB, 08/18/2022 20:49 Performed By: #### V FPA4 ####[id number] [place] [address] BASE EXCESS-BLOOD -8.9 mmol/L Low -2.0 - 3.0 [facility] Comment on above: Order Comment: PHVEN LACTV CALLED TO LAURA BRAD , 08/18/2022 20:49 Performed By: #### V FPA4 ####[id number] [place] [address] BICARB, CALCULATED 18.8 mmol/L Low 22.0 - 26.0 [facility] Comment on above: Order Comment: PHVEN LACTV CALLED TO LAURA BRAD RB, 08/18/2022 20:49 Performed By: #### V FPA4 ####[id number] [place] [address] CALCIUM,IONIZED 1.12 mmol/L Normal 1.10 - 1.33 [facility] [place] Comment on above: Order Comment: PHVEN LACTV CALLED TO LAURA BRAD RB, 08/18/2022 20:49 Performed By: #### V FPA4 ####[id number] [place] [address] Chloride [Moles/Vol] 102 mmol/L Normal 98 - 107 [facility] Comment on above: Order Comment: PHVEN LACTV CALLED TO LAURA BRAD RB, 08/18/2022 20:49 Performed By: #### V FPA4 ####[id number] [place] [address] Glucose [Mass/Vol] 314 mg/dL High 74 - 99 [facility] Comment on above: Order Comment: PHVEN LACTV CALLED TO LAURA SALINAS , 08/18/2022 20:49 Performed By: #### V FPA4 ####[id number] [place] [address] Hematocrit (Bld) [Volume fraction] 35.0 % Low 41.0 - 52.0 [facility] Comment on above: Order Comment: PHVEN LACTV CALLED TO LAURA KISS , 08/18/2022 20:49 Performed By: #### V FPA4 ####[id number] [place] [address] Hemoglobin (Bld) [Mass/Vol] 11.8 g/dL Low 13.5 - 17.5 [facility] Comment on above: Order Comment: PHVEN LACTV CALLED TO LAURA KISS , 08/18/2022 20:49 Performed By: #### V FPA4 ####[id number] [place] [address] Lactate [Moles/Vol] 12.4 mmol/L Critically high 0.4 - 2.0 [facility] Comment on above: Order Comment: PHVEN LACTV CALLED TO LAURA SALINAS , 08/18/2022 20:49 Result Comment: PHVE N LACTV CALLED TO LAURA SALINAS , 08/18/2022 20:49 Performed By: #### V FPA4 ####[id number] [place] [address] OXY HGB 80.6 % High 45.0 - 75.0 [facility] Comment on above: Order Comment: PHVEN LACTV CALLED TO LAURA KISS , 08/18/2022 20:49 Performed By: #### V FPA4 ####[id number] [place] [address] Oxygen (Bld) [Partial pressure] 56 mm[Hg] High 35 - 45 [facility] Comment on above: Order Comment: PHVEN LACTV CALLED TO LAURA SALINAS , 08/18/2022 20:49 Performed By: #### V FPA4 ####[id number] [place] [address] PATIENT TEMPERATURE 37.0 degrees C Normal [facility] Comment on above: Order Comment: PHVEN LACTV CALLED TO LAURA KISS RB, 08/18/2022 20:49 Result Comment: NOTE : PATIENT RESULTS ARE NOT CORRECTED FOR TEMPERATURE. Performed By: #### V FPA4 ####[id number] [id number] PCO2 47 mmHg Normal 41 - 51 [facility] Comment on above: Order Comment: PHVEN LACTV CALLED TO LAURA KISS RB, 08/18/2022 20:49 Performed By: #### V FPA4 ####[id number] [id number] pH (Bld) 7.21 [pH] Critically low 7.33 - 7.43 [facility] Comment on above: Order Comment: PHVEN LACTV CALLED TO LAURA KISS RB, 08/18/2022 20:49 Result Comment: PHVE N LACTV CALLED TO LAURA KISS , 08/18/2022 20:49 Performed By: #### V FPA4 ####[id number] [id number] Potassium [Moles/Vol] 4.1 mmol/L Normal 3.5 - 5.3 [facility] Comment on above: Order Comment: PHVEN LACTV CALLED TO LAURA KISS RB, 08/18/2022 20:49 Performed By: #### V FPA4 ####[id number] [id number] SO2 82 % High 45 - 75 [facility] Comment on above: Order Comment: PHVEN LACTV CALLED TO LAURA KISS RB, 08/18/2022 20:49 Performed By: #### V FPA4 ####[id number] [id number] Sodium [Moles/Vol] 139 mmol/L Normal 136 - 145 [facility] Comment on above: Order Comment: PHVEN LACTV CALLED TO LAURA KISS RB, 08/18/2022 20:49 Performed By: #### V FPA4 ####[id number] [place] [address] Anion gap [Moles/Vol] 10 mmol/L Normal 10 - 25 [facility] Comment on above: Performed By: #### V FPA4 ####[id number] [place] [address] BASE EXCESS-BLOOD 1.9 mmol/L Normal -2.0 - 3.0 [facility] [place] Comment on above: Performed By: #### V FPA4 ####[id number] [place] [address] BICARB, CALCULATED 29.8 mmol/L High 22.0 - 26.0 [facility] Comment on above: Performed By: #### V FPA4 ####[id number] [place] [address] CALCIUM,IONIZED 1.12 mmol/L Normal 1.10 - 1.33 [facility] [place] Comment on above: Performed By: #### V FPA4 ####[id number] [place] [address] Chloride [Moles/Vol] 100 mmol/L Normal 98 - 107 [facility] Comment on above: Performed By: #### V FPA4 ####[id number] [place] [address] FIO2 90 % Normal [facility] Comment on above: Performed By: #### V FPA4 ####[id number] [place] [address] Glucose [Mass/Vol] 179 mg/dL High 74 - 99 [facility] Comment on above: Performed By: #### V FPA4 ####[id number] [place] [address] Hematocrit (Bld) [Volume fraction] 36.0 % Low 41.0 - 52.0 [facility] Comment on above: Performed By: #### V FPA4 ####[id number] [place] [address] Hemoglobin (Bld) [Mass/Vol] 12.1 g/dL Low 13.5 - 17.5 [facility] Comment on above: Performed By: #### V FPA4 ####[id number] [place] [address] Lactate [Moles/Vol] 1.4 mmol/L Normal 0.4 - 2.0 [facility] Comment on above: Performed By: #### V FPA4 ####[id number] [place] [address] OXY HGB 84.4 % High 45.0 - 75.0 [facility] Comment on above: Performed By: #### V FPA4 ####[id number] [place] [address] Oxygen (Bld) [Partial pressure] 56 mm[Hg] High 35 - 45 [facility] Comment on above: Performed By: #### V FPA4 ####[id number] [place] [address] PATIENT TEMPERATURE 37.0 degrees C Normal [facility] Comment on above: Result Comment: NOTE : PATIENT RESULTS ARE NOT CORRECTED FOR TEMPERATURE. Performed By: #### V FPA4 ####[id number] [place] [address] PCO2 62 mmHg High 41 - 51 [facility] Comment on above: Performed By: #### V FPA4 ####[id number] [place] [address] pH (Bld) 7.29 [pH] Low 7.33 - 7.43 [facility] Comment on above: Performed By: #### V FPA4 ####[id number] [place] [address] Potassium [Moles/Vol] 6.0 mmol/L High 3.5 - 5.3 [facility] Comment on above: Performed By: #### V FPA4 ####[id number] [place] [address] SO2 87 % High 45 - 75 [facility] Comment on above: Performed By: #### V FPA4 ####[id number] [place] [address] Sodium [Moles/Vol] 134 mmol/L Low 136 - 145 [facility] Comment on above: Performed By: #### V FPA4 ####[id number] [place] [address] CBCon 08-17-2022 Erythrocyte distribution width (RBC) [Ratio] 13.7 % Normal 11.5 - 14.5 [facility] Comment on above: Performed By: #### C BC ####[id number] [place] [address] Hematocrit (Bld) [Volume fraction] 41.8 % Normal 41.0 - 52.0 [facility] Comment on above: Performed By: #### C BC ####[id number] [place] [address] Hemoglobin (Bld) [Mass/Vol] 12.9 g/dL Low 13.5 - 17.5 [facility] Comment on above: Performed By: #### C BC ####[id number] [place] [address] MCHC (RBC) [Mass/Vol] 30.9 g/dL Low 32.0 - 36.0 [facility] Comment on above: Performed By: #### C BC ####[id number] [place] [address] MCV (RBC) [Entitic vol] 102 fL High 80 - 100 [facility] Comment on above: Performed By: #### C BC ####[id number] [place] [address] NUCLEATED RBC 0.0 /100 WBC Normal 0.0-0.0 [facility] Comment on above: Performed By: #### C BC ####[id number] [place] [address] Platelets (Bld) [#/Vol] 223 10*3/uL Normal 150 - 450 [facility] Comment on above: Performed By: #### C BC ####[id number] [place] [address] RBC 4.11 x10E12/L Low 4.50 - 5.90 [facility] Comment on above: Performed By: #### C BC ####[id number] [place] [address] WBC (Bld) [#/Vol] 10.8 10*3/uL Normal 4.4 - 11.3 [facility] Comment on above: Performed By: #### C BC ####[id number] [place] [address] COAGULATION SCREENon 023 aPTT Coag (Bld) [Time] 57 s High 27 - 38 [facility] Comment on above: Result Comment: Note new reference range as of 08/02/2022 at 10:00am. Performed By: #### C OAGS ####[id number] [place] [address] PT Coag (PPP) [Time] 13.6 s High 9.8 - 12.8 [facility] Comment on above: Result Comment: Note new reference range as of 08/02/2022 at 10:00am. Performed By: #### C OAGS ####[id number] [place] [address] PT, INR 1.2 High 0.9 - 1.1 [facility] Comment on above: Performed By: #### C OAGS ####[id number] [place] [address] Clinical Event Note-cardiac surgeryon 08-17-2022 Clinical Event Note-cardiac surgery Normal [facility] Consult-Supportive Oncologyo n 08-17-2022 Consult-Supportive Oncology Normal [facility] Daily Progress Note-Cardiolo gyon 08-17-2022 Daily Progress Note-Cardiology Normal [facility] HEPARIN ASSAY,UFHon 08-18-19 23 HEPARIN ASSAY,UFH 0.3 IU/mL Normal [facility] [place] Comment on above: Result Comment: The therapeutic reference range for UFH may be either 0.3-0.6 IU/mL or 0.3-0.7 IU/mL based on the clinical setting for anticoagulant therapy and the associated nomogram used. For heparin dosing guidelines based on clinical scenario and Heparin Assay results, please refer to local Pharmacy and the [facility] Guidelines for Anticoagulation therapy available on the [facility] intranet at:[email or web address] Performed By: #### H AUF ####[id number] [place] [address] MAGNESIUMon 08-17-2022 Magnesium [Mass/Vol] 2.30 mg/dL Normal 1.60 - 2.40 [facility] Comment on above: Performed By: #### M G ####[id number] [place] [address] PLATELETSon 08-17-2022 PLATELETS ORDER RECD Normal [facility] Comment on above: Result Comment: If t his patient is Rh Negative and if the Plateletproduct transfused is Rh Positive, review the useof WinRho Prophylaxis for this patient. Performed By: #### P LT ####[id number] [place] [address] Preop Checkliston 08-17-2022 Preop Checklist Normal [facility] RENAL FUNCTION PANELon 08-17 Albumin [Mass/Vol] 3.0 g/dL Low 3.4 - 5.0 [facility] Comment on above: Performed By: #### R ENAL ####[id number] [place] [address] Anion gap [Moles/Vol] 12 mmol/L Normal 10 - 20 [facility] Comment on above: Performed By: #### R ENAL ####[id number] [place] [address] Calcium [Mass/Vol] 8.9 mg/dL Normal 8.6 - 10.6 [facility] Comment on above: Performed By: #### R ENAL ####[id number] [place] [address] Chloride [Moles/Vol] 98 mmol/L Normal 98 - 107 [facility] Comment on above: Performed By: #### R ENAL ####[id number] [place] [address] Creatinine [Mass/Vol] 1.52 mg/dL High 0.50 - 1.30 [facility] Comment on above: Performed By: #### R ENAL ####[id number] [place] [address] GFR/1.73 sq M.predicted among non-blacks MDRD (S/P/Bld) [Vol rate/Area] 58 mL/min/{1.73_m2} Abnormal >90 [facility] Comment on above: Result Comment: CALC ULATIONS OF ESTIMATED GFR ARE PERFORMED USING THE 2020 CKD-EPI STUDY REFIT EQUATION WITHOUT THE RACE VARIABLE FOR THE IDMS-TRACEABLE CREATININE METHODS.https://jasn.asnjournals.org/content//A SN.8672410428 Performed By: #### R ENAL ####[id number] [place] [address] Glucose [Mass/Vol] 104 mg/dL High 74 - 99 [facility] Comment on above: Performed By: #### R ENAL ####[id number] [place] [address] HCO3 (Bld) [Moles/Vol] 32 mmol/L Normal 21 - 32 [facility] Comment on above: Performed By: #### R ENAL ####[id number] [place] [address] Phosphate [Mass/Vol] 5.4 mg/dL High 2.5 - 4.9 [facility] Comment on above: Result Comment: The performance characteristics of phosphorus testing in heparinized plasma have been validated by the individual laboratory site where testing is performed. Testing on heparinized plasma is not approved by the FDA; however, such approval is not necessary. Performed By: #### R ENAL ####[id number] [place] [address] Potassium [Moles/Vol] 4.4 mmol/L Normal 3.5 - 5.3 [facility] Comment on above: Performed By: #### R ENAL ####[id number] [place] [address] Sodium [Moles/Vol] 138 mmol/L Normal 136 - 145 [facility] Comment on above: Performed By: #### R ENAL ####[id number] [place] [address] Urea nitrogen [Mass/Vol] 21 mg/dL Normal 6 - 23 [facility] Comment on above: Performed By: #### R ENAL ####[id number], [place] REQUEST-LEUKOREDUCED RED WINSTON LSon 08-17-2022 REQUEST-LEUKOREDUCED RED CELLS ORDER RECD Normal [facility] Comment on above: Performed By: #### O HOSPICE BEREAVEMENT COORDINATOR ####[id number], [place] Rapid Response Nurse Noteon 08-17-2022 Rapid Response Nurse Note Normal [facility] Rehab Note-physical therapy assistanton 08-17-2022 Rehab Note-geophysical prospecting permit agent Normal [facility] TYPE + SCREENon 08-17-2022 ABO TYPE O Normal [facility] Comment on above: Performed By: #### T +S ####[id number], [place] RH TYPE Positive Normal [facility] Comment on above: Performed By: #### T +S ####[id number] [place] [address] CBCon 08-16-2022 Erythrocyte distribution width (RBC) [Ratio] 13.9 % Normal 11.5 - 14.5 [facility] Comment on above: Performed By: #### C BC ####[id number] [place] [address] Hematocrit (Bld) [Volume fraction] 43.4 % Normal 41.0 - 52.0 [facility] Comment on above: Performed By: #### C BC ####[id number] [place] [address] Hemoglobin (Bld) [Mass/Vol] 13.3 g/dL Low 13.5 - 17.5 [facility] Comment on above: Performed By: #### C BC ####[id number], [place] MCHC (RBC) [Mass/Vol] 30.6 g/dL Low 32.0 - 36.0 [facility] Comment on above: Performed By: #### C BC ####[id number] [place] [address] MCV (RBC) [Entitic vol] 103 fL High 80 - 100 [facility] Comment on above: Performed By: #### C BC ####[id number] [place] [address] NUCLEATED RBC 0.0 /100 WBC Normal 0.0-0.0 [facility] Comment on above: Performed By: #### C BC ####[id number] [place] [address] Platelets (Bld) [#/Vol] 224 10*3/uL Normal 150 - 450 [facility] Comment on above: Performed By: #### C BC ####[id number] [place] [address] RBC 4.23 x10E12/L Low 4.50 - 5.90 [facility] Comment on above: Performed By: #### C BC ####[id number] [place] [address] WBC (Bld) [#/Vol] 10.5 10*3/uL Normal 4.4 - 11.3 [facility] Comment on above: Performed By: #### C BC ####[id number] [place] [address] CORONAVIRUS 2019, SCREEN ASY MPTOMATICon 08-16-2022 SARS-CoV-2 (COVID-19) RNA GILMAR+probe Ql (Unsp spec) Not detected Normal Not Detected [facility] Comment on above: Result Comment: .Thi s assay is designed to detect the ORF1ab and/or S genes of SARS-CoV-2 vianucleic acid amplification. A Not Detected result does not [id number] infection since the adequacy of sample collection and/or low viralburden may result in presence of viral nucleic acids below the clinicalsensitivity of this test method.Fact sheet for providers: www.fda.gov/media/660021/downloadFact sheet for patients: www.fda.gov/media/348837/downloadThis test has received FDA Emergency Use Authorization (EUA) and has beenverified by [facility] ([facility]). This testis only authorized for the duration of time that circumstances exist tojustify the authorization of the emergency use of in vitro diagnostic testsfor the detection of SARS-CoV-2 virus and/or diagnosis of COVID-19 infectionunder section 564(b)(1) of the Act, 21 U.S.C. 360bbb-3(b)(1), unless theauthorization is terminated or revoked sooner.[facility] is certified under CLIA-88 asqualified to perform high complexity testing. Testing is performed in the[facility] laboratories located at [address] [place] [address]. Performed By: #### C OVSC ####[id number] [place] [address] Lab Specimen Source Nasal, Nasopharyngeal Normal [facility] Comment on above: Performed By: #### C OVSC ####[id number] [facility] [address] Clinical Event Note-Cardiac surgery - OR dateon 08-16-2022 Clinical Event Note-Cardiac surgery - OR date Normal [facility] Covid 19 Resultson 3 SARS-CoV-2 (COVID-19) RNA GILMAR+probe Ql (Unsp spec) Normal [facility] Daily Progress Note-Cardiolo gyon 08-16-2022 Daily Progress Note-Cardiology Normal [facility] HEPARIN ASSAY,UFHon 08-17-19 23 HEPARIN ASSAY,UFH 0.3 IU/mL Normal [facility], [place] Comment on above: Result Comment: The therapeutic reference range for UFH may be either 0.3-0.6 IU/mL or 0.3-0.7 IU/mL based on the clinical setting for anticoagulant therapy and the associated nomogram used. For heparin dosing guidelines based on clinical scenario and Heparin Assay results, please refer to local Pharmacy and the [facility] Guidelines for Anticoagulation therapy available on the [facility] intranet at:[email or web address] Performed By: #### H AUF ####[id number] [place] [address] HEPARIN ASSAY,UFH 0.3 IU/mL Normal [facility], [place] Comment on above: Result Comment: The therapeutic reference range for UFH may be either 0.3-0.6 IU/mL or 0.3-0.7 IU/mL based on the clinical setting for anticoagulant therapy and the associated nomogram used. For heparin dosing guidelines based on clinical scenario and Heparin Assay results, please refer to local Pharmacy and the [facility] Guidelines for Anticoagulation therapy available on the [facility] intranet at:[email or web address]/[email or web address]_Guidelines_for_[email or web address].aspx Performed By: #### H AUF ####[id number] [place] [address] MAGNESIUMon 08-16-2022 Magnesium [Mass/Vol] 1.91 mg/dL Normal 1.60 - 2.40 [facility] Comment on above: Performed By: #### M G ####[id number] [place] [address] RENAL FUNCTION PANELon 08-16 Albumin [Mass/Vol] 3.1 g/dL Low 3.4 - 5.0 [facility] Comment on above: Performed By: #### R ENAL ####[id number] [place] [address] Anion gap [Moles/Vol] 16 mmol/L Normal 10 - 20 [facility] Comment on above: Performed By: #### R ENAL ####[id number] [place] [address] Calcium [Mass/Vol] 8.8 mg/dL Normal 8.6 - 10.6 [facility] Comment on above: Performed By: #### R ENAL ####[id number] [place] [address] Chloride [Moles/Vol] 98 mmol/L Normal 98 - 107 [facility] Comment on above: Performed By: #### R ENAL ####[id number] [place] [address] Creatinine [Mass/Vol] 1.47 mg/dL High 0.50 - 1.30 [facility] Comment on above: Performed By: #### R ENAL ####[id number] [place] [address] GFR/1.73 sq M.predicted among non-blacks MDRD (S/P/Bld) [Vol rate/Area] 60 mL/min/{1.73_m2} Normal >90 [facility] Comment on above: Result Comment: CALC ULATIONS OF ESTIMATED GFR ARE PERFORMED USING THE 2020 CKD-EPI STUDY REFIT EQUATION WITHOUT THE RACE VARIABLE FOR THE IDMS-TRACEABLE CREATININE METHODS.https://jasn.asnjournals.org/content/early//A SN.2415946473 Performed By: #### R ENAL ####[id number] [place] [address] Glucose [Mass/Vol] 174 mg/dL High 74 - 99 [facility] Comment on above: Performed By: #### R ENAL ####[id number] [place] [address] HCO3 (Bld) [Moles/Vol] 30 mmol/L Normal 21 - 32 [facility] Comment on above: Performed By: #### R ENAL ####[id number] [place] [address] Phosphate [Mass/Vol] 4.5 mg/dL Normal 2.5 - 4.9 [facility] Comment on above: Result Comment: The performance characteristics of phosphorus testing in heparinized plasma have been validated by the individual laboratory site where testing is performed. Testing on heparinized plasma is not approved by the FDA; however, such approval is not necessary. Performed By: #### R ENAL ####[id number] [place] [address] Potassium [Moles/Vol] 5.2 mmol/L Normal 3.5 - 5.3 [facility] Comment on above: Performed By: #### R ENAL ####[id number] [place] [address] Sodium [Moles/Vol] 139 mmol/L Normal 136 - 145 [facility] Comment on above: Performed By: #### R ENAL ####[id number] [place] [address] Urea nitrogen [Mass/Vol] 20 mg/dL Normal 6 - 23 [facility] Comment on above: Performed By: #### R ENAL ####[id number] [place] [address] REQUEST-LEUKOREDUCED RED WINSTON LSon 08-16-2022 REQUEST-LEUKOREDUCED RED CELLS ORDER RECD Normal [facility] Comment on above: Performed By: #### O HOSPICE BEREAVEMENT COORDINATOR ####[id number] [place] [address] STAPH/MRSA SCREENon 08-17-19 23 STAPH/MRSA SCREEN Normal [facility], [place] Comment on above: Performed By: #### S TAPH ####[id number], [place] TH CHEST 1 VIEWon 08-16-2022 TH CHEST 1 VIEW Normal [facility] THYROXINE,FREEon 08-16-2022 THYROXINE,FREE 0.95 ng/dL Normal 0.78 - 1.48 [facility] Comment on above: Result Comment: Thyr oxine Free testing is performed using different testing methodology at [facility] than at [facility]. Direct result comparisons should only be made within the same method. Performed By: #### T 4FRE ####[id number], [place] TSHon 08-16-2022 TSH Qn 7.31 m[IU]/L High 0.44 - 3.98 [facility] Comment on above: Result Comment: TSH testing is performed using different testing methodology at [facility] than at [facility]. Direct result comparisons should only be made within the same method. Performed By: #### T SH2 ####[id number] [place] [address] TYPE + SCREENon 08-16-2022 ABO TYPE O Normal [facility] Comment on above: Performed By: #### T +S ####[id number] [place] [address] RH TYPE Positive Normal [facility] Comment on above: Performed By: #### T +S ####[id number] [place] [address] URINALYSIS WITH CULTURE IF I NDICATEDon 08-16-2022 Appearance (U) CLEAR Normal CLEAR [facility] Comment on above: Performed By: #### U ARFX ####[id number] [place] [address] Bilirubin Ql (U) Negative Normal NEGATIVE [facility] Comment on above: Performed By: #### U ARFX ####[id number] [place] [address] Color (U) YELLOW Normal STRAW,YELLOW [facility] Comment on above: Performed By: #### U ARFX ####[id number] [place] [address] Glucose Ql (U) Negative Normal NEGATIVE [facility] Comment on above: Performed By: #### U ARFX ####[id number] [place] [address] Hemoglobin Ql (U) Negative Normal NEGATIVE [facility] [place] Comment on above: Performed By: #### U ARFX ####[id number] [place] [address] Ketones Ql (U) Negative Normal NEGATIVE [facility] Comment on above: Performed By: #### U ARFX ####[id number] [place] [address] Leukocyte esterase Test strip Ql (U) Negative Normal NEGATIVE [facility] Comment on above: Performed By: #### U ARFX ####[id number] [place] [address] Nitrite Ql (U) Negative Normal NEGATIVE [facility] Comment on above: Performed By: #### U ARFX ####[id number] [place] [address] pH (U) 7.0 [pH] Normal 5.0 - 8.0 [facility] Comment on above: Performed By: #### U ARFX ####[id number] [place] [address] Protein Ql (U) Negative Normal NEGATIVE [facility] Comment on above: Performed By: #### U ARFX ####[id number] [place] [address] Specific gravity (U) [Rel density] 1.017 Normal 1.005 - 1.035 [facility] Comment on above: Performed By: #### U ARFX ####[id number] [place] [address] Urobilinogen (U) [Mass/Vol] mg/dL Normal 0.0 - 1.9 [facility] Comment on above: Performed By: #### U ARFX ####[id number] [place] [address] CBCon 08-15-2022 Erythrocyte distribution width (RBC) [Ratio] 13.5 % Normal 11.5 - 14.5 [facility] Comment on above: Performed By: #### C BC ####[id number] [place] [address] Hematocrit (Bld) [Volume fraction] 41.2 % Normal 41.0 - 52.0 [facility] Comment on above: Performed By: #### C BC ####[id number] [place] [address] Hemoglobin (Bld) [Mass/Vol] 12.9 g/dL Low 13.5 - 17.5 [facility] Comment on above: Performed By: #### C BC ####[id number] [place] [address] MCHC (RBC) [Mass/Vol] 31.3 g/dL Low 32.0 - 36.0 [facility] Comment on above: Performed By: #### C BC ####[id number] [place] [address] MCV (RBC) [Entitic vol] 101 fL High 80 - 100 [facility] Comment on above: Performed By: #### C BC ####[id number] [place] [address] NUCLEATED RBC 0.0 /100 WBC Normal 0.0-0.0 [facility] Comment on above: Performed By: #### C BC ####[id number] [place] [address] Platelets (Bld) [#/Vol] 227 10*3/uL Normal 150 - 450 [facility] Comment on above: Performed By: #### C BC ####[id number] [place] [address] RBC 4.09 x10E12/L Low 4.50 - 5.90 [facility] Comment on above: Performed By: #### C BC ####[id number] [place] [address] WBC (Bld) [#/Vol] 11.5 10*3/uL High 4.4 - 11.3 [facility] Comment on above: Performed By: #### C BC ####[id number] [place] [address] Clinical Event Note-Cardiac Surgery Updateon 08-15-2022 Clinical Event Note-Cardiac Surgery Update Normal [facility] Clinical Event Note-s/p LHCo n 08-15-2022 Clinical Event Note-s/p LHC Normal [facility] Consult-Supportive Oncologyo n 08-15-2022 Consult-Supportive Oncology Normal [facility] Daily Progress Note-Cardiolo gyon 08-15-2022 Daily Progress Note-Cardiology Normal [facility] ELECTROLYTE, URINE SPOTon OSMOLALITY,URINE SPOT 392 mOsm/kg Normal 200 - 1200 [facility] Comment on above: Performed By: #### E LCS2 ####[id number] [place] [address] CHLORIDE,URINE SPOT 38 mmol/L Normal Not Established [facility] Comment on above: Performed By: #### E LCS2 ####[id number] [place] [address] CHLORIDE/CREAT RATIO 36 mmol/g Creat Normal 23 - 275 [facility] Comment on above: Performed By: #### E LCS2 ####[id number] [place] [address] CREATININE,URINE 107.0 mg/dL Normal 20.0 - 370.0 [facility] Comment on above: Performed By: #### E LCS2 ####[id number] [place] [address] POT/CREAT RATIO 46 mmol/g Creat Normal Not Established [facility] Comment on above: Performed By: #### E LCS2 ####[id number] [place] [address] POTASSIUM,URINE SPOT 49 mmol/L Normal Not Established [facility] Comment on above: Performed By: #### E LCS2 ####[id number] [place] [address] Sodium (U) [Moles/Vol] 46 mmol/L Normal Not Established [facility] Comment on above: Performed By: #### E LCS2 ####[id number] [place] [address] SODIUM/CREAT RATIO 43 mmol/g Creat Normal Not Established [facility] Comment on above: Performed By: #### E LCS2 ####[id number] [place] [address] UREA NITROGEN,URINE 517 mg/dL Normal Not Established [facility] Comment on above: Performed By: #### E LCS2 ####[id number] [place] [address] UREA NITROGEN/CREAT RATIO 4.8 g/g Creat Normal Not Established [facility] Comment on above: Performed By: #### E LCS2 ####[id number] [place] [address] HEPARIN ASSAY,UFHon 08-16-19 HEPARIN ASSAY,UFH Canceled Normal [facility], [place] Comment on above: Order Comment: TEST HEPARIN ASSAY,UFH WAS CANCELLED, 08/15/2022 16:16 SPECIMEN UNSUITABLEFOR TESTING. RECEIVED IN LAB >1 HR FROM COLLECTION.. Result Comment: The therapeutic reference range for UFH may be either 0.3-0.6 IU/mL or 0.3-0.7 IU/mL based on the clinical setting for anticoagulant therapy and the associated nomogram used. For heparin dosing guidelines based on clinical scenario and Heparin Assay results, please refer to local Pharmacy and the [facility] Guidelines for Anticoagulation therapy available on the [facility] intranet at:[email or web address] Performed By: #### H AUF ####[id number] [place] [address] HEPARIN ASSAY,UFH 1.2 IU/mL Critically abnormal [facility] Comment on above: Order Comment: HAUF REPORTED TO MORGAN CHRISTIAN, 08/15/2022 08:31 Result Comment: The therapeutic reference range for UFH may be either 0.3-0.6 IU/mL or 0.3-0.7 IU/mL based on the clinical setting for anticoagulant therapy and the associated nomogram used. For heparin dosing guidelines based on clinical scenario and Heparin Assay results, please refer to [facility] and the [facility] Guidelines for Anticoagulation therapy available on the [facility] intranet at:[email or web address] REPORTED TO MORGAN CHRISTIAN, 08/15/2022 08:31 Performed By: #### H AUF ####[id number] [place] [address] HEPARIN ASSAY,UFH Canceled Normal [facility], [place] Comment on above: Order Comment: TEST HEPARIN ASSAY,UFH WAS CANCELLED, 08/15/2022 06:23 QNS, RESUBMIT. Result Comment: The therapeutic reference range for UFH may be either 0.3-0.6 IU/mL or 0.3-0.7 IU/mL based on the clinical setting for anticoagulant therapy and the associated nomogram used. For heparin dosing guidelines based on clinical scenario and Heparin Assay results, please refer to local Pharmacy and the [facility] Guidelines for Anticoagulation therapy available on the [facility] intranet at:[email or web address] Performed By: #### H AUF ####[id number] [place] [address] Left Heart Catheterizationon 08-15-2022 Left Heart Catheterization Normal [facility] MAGNESIUMon 08-15-2022 Magnesium [Mass/Vol] 1.91 mg/dL Normal 1.60 - 2.40 [facility] Comment on above: Performed By: #### M G ####[id number] [place] [address] PLATELETSon 08-15-2022 PLATELETS ORDER RECD Normal [facility] Comment on above: Result Comment: If t his patient is Rh Negative and if the Plateletproduct transfused is Rh Positive, review the useof WinRho Prophylaxis for this patient. Performed By: #### P LT ####[id number] [place] [address] RENAL FUNCTION PANELon 08-15 Albumin [Mass/Vol] 3.1 g/dL Low 3.4 - 5.0 [facility] Comment on above: Performed By: #### R ENAL ####[id number] [place] [address] Anion gap [Moles/Vol] 12 mmol/L Normal 10 - 20 [facility] Comment on above: Performed By: #### R ENAL ####[id number] [place] [address] Calcium [Mass/Vol] 8.8 mg/dL Normal 8.6 - 10.6 [facility] Comment on above: Performed By: #### R ENAL ####[id number] [place] [address] Chloride [Moles/Vol] 101 mmol/L Normal 98 - 107 [facility] Comment on above: Performed By: #### R ENAL ####[id number] [place] [address] Creatinine [Mass/Vol] 1.44 mg/dL High 0.50 - 1.30 [facility] Comment on above: Performed By: #### R ENAL ####[id number] [place] [address] GFR/1.73 sq M.predicted among non-blacks MDRD (S/P/Bld) [Vol rate/Area] 62 mL/min/{1.73_m2} Normal >90 [facility] Comment on above: Result Comment: CALC ULATIONS OF ESTIMATED GFR ARE PERFORMED USING THE 2020 CKD-EPI STUDY REFIT EQUATION WITHOUT THE RACE VARIABLE FOR THE IDMS-TRACEABLE CREATININE METHODS.https://jasn.asnjournals.org/content//A SN.1154812134 Performed By: #### R ENAL ####[id number] [place] [address] Glucose [Mass/Vol] 104 mg/dL High 74 - 99 [facility] Comment on above: Performed By: #### R ENAL ####[id number] [place] [address] HCO3 (Bld) [Moles/Vol] 33 mmol/L High 21 - 32 [facility] Comment on above: Performed By: #### R ENAL ####[id number] [place] [address] Phosphate [Mass/Vol] 4.8 mg/dL Normal 2.5 - 4.9 [facility] Comment on above: Result Comment: The performance characteristics of phosphorus testing in heparinized plasma have been validated by the individual laboratory site where testing is performed. Testing on heparinized plasma is not approved by the FDA; however, such approval is not necessary. Performed By: #### R ENAL ####[id number] [place] [address] Potassium [Moles/Vol] 4.7 mmol/L Normal 3.5 - 5.3 [facility] Comment on above: Performed By: #### R ENAL ####[id number] [place] [address] Sodium [Moles/Vol] 141 mmol/L Normal 136 - 145 [facility] Comment on above: Performed By: #### R ENAL ####[id number] [place] [address] Urea nitrogen [Mass/Vol] 18 mg/dL Normal 6 - 23 [facility] Comment on above: Performed By: #### R ENAL ####[id number], [place] REQUEST-LEUKOREDUCED RED WINSTON LSon 08-15-2022 REQUEST-LEUKOREDUCED RED CELLS ORDER RECD Normal [facility] Comment on above: Performed By: #### O HOSPICE BEREAVEMENT COORDINATOR ####[id number], [place] MRI CARDIAC W/WO CONTRAST FOR MORPH/FUNCT AND VALVE DZon 08-15-2022 TH MRI CARDIAC W/WO CONTRAST FOR MORPH/FUNCT AND VALVE DZ Normal [facility] CBCon 08-14-2022 Erythrocyte distribution width (RBC) [Ratio] 13.6 % Normal 11.5 - 14.5 [facility] Comment on above: Performed By: #### C BC ####[id number], [place] Hematocrit (Bld) [Volume fraction] 42.6 % Normal 41.0 - 52.0 [facility] Comment on above: Performed By: #### C BC ####[id number] [place] [address] Hemoglobin (Bld) [Mass/Vol] 13.3 g/dL Low 13.5 - 17.5 [facility] Comment on above: Performed By: #### C BC ####[id number] [place] [address] MCHC (RBC) [Mass/Vol] 31.2 g/dL Low 32.0 - 36.0 [facility] Comment on above: Performed By: #### C BC ####[id number] [place] [address] MCV (RBC) [Entitic vol] 101 fL High 80 - 100 [facility] Comment on above: Performed By: #### C BC ####[id number] [place] [address] NUCLEATED RBC 0.0 /100 WBC Normal 0.0-0.0 [facility] Comment on above: Performed By: #### C BC ####[id number] [place] [address] Platelets (Bld) [#/Vol] 246 10*3/uL Normal 150 - 450 [facility] Comment on above: Performed By: #### C BC ####[id number] [place] [address] RBC 4.20 x10E12/L Low 4.50 - 5.90 [facility] Comment on above: Performed By: #### C BC ####[id number] [place] [address] WBC (Bld) [#/Vol] 12.5 10*3/uL High 4.4 - 11.3 [facility] Comment on above: Performed By: #### C BC ####[id number] [place] [address] Daily Progress Note-Cardiolo gyon 08-14-2022 Daily Progress Note-Cardiology Normal [facility] EMR ADDONon 08-14-2022 ADDON CONFIRMATION REQUEST REC'D Normal [facility] Comment on above: Performed By: #### E MRAD ####NO LOCATION NEEDED ADDON CONFIRMATION REQUEST REC'D Normal [facility] Comment on above: Performed By: #### E MRAD ####NO LOCATION NEEDED FOLATE, SERUMon 08-14-2022 Folate [Mass/Vol] 9.0 ng/mL Normal >5.0 [facility], [place] Comment on above: Result Comment: Low <3.4Borderline 3.4-5.0Normal >5.0. Biotin interference may cause falsely elevated results. Patients taking a Biotin dose of up to 5 mg/day should refrain from taking Biotin for 24 hours before sample collection. Providers may contact their local laboratory for further information. Performed By: #### F OLA2 ####[id number] [place] [address] HEPARIN ASSAY,UFHon 08-15-19 23 HEPARIN ASSAY,UFH 0.3 IU/mL Normal [facility], [place] Comment on above: Result Comment: The therapeutic reference range for UFH may be either 0.3-0.6 IU/mL or 0.3-0.7 IU/mL based on the clinical setting for anticoagulant therapy and the associated nomogram used. For heparin dosing guidelines based on clinical scenario and Heparin Assay results, please refer to local Pharmacy and the [facility] Guidelines for Anticoagulation therapy available on the [facility] intranet at:[email or web address] Performed By: #### H AUF ####[id number] [place] [address] MAGNESIUMon 08-14-2022 Magnesium [Mass/Vol] 1.80 mg/dL Normal 1.60 - 2.40 [facility] Comment on above: Performed By: #### M G ####[id number] [place] [address] RENAL FUNCTION PANELon 08-14 Albumin [Mass/Vol] 2.8 g/dL Low 3.4 - 5.0 [facility] Comment on above: Performed By: #### R ENAL ####[id number] [place] [address] Anion gap [Moles/Vol] 14 mmol/L Normal 10 - 20 [facility] Comment on above: Performed By: #### R ENAL ####[id number] [place] [address] Calcium [Mass/Vol] 8.5 mg/dL Low 8.6 - 10.6 [facility] Comment on above: Performed By: #### R ENAL ####[id number] [place] [address] Chloride [Moles/Vol] 98 mmol/L Normal 98 - 107 [facility] Comment on above: Performed By: #### R ENAL ####[id number] [place] [address] Creatinine [Mass/Vol] 1.41 mg/dL High 0.50 - 1.30 [facility] Comment on above: Performed By: #### R ENAL ####[id number] [place] [address] GFR/1.73 sq M.predicted among non-blacks MDRD (S/P/Bld) [Vol rate/Area] 63 mL/min/{1.73_m2} Normal >90 [facility] Comment on above: Result Comment: CALC ULATIONS OF ESTIMATED GFR ARE PERFORMED USING THE 2020 CKD-EPI STUDY REFIT EQUATION WITHOUT THE RACE VARIABLE FOR THE IDMS-TRACEABLE CREATININE METHODS.https://jasn.asnjournals.org/content//A SN.3399317546 Performed By: #### R ENAL ####[id number] [place] [address] Glucose [Mass/Vol] 99 mg/dL Normal 74 - 99 [facility] Comment on above: Performed By: #### R ENAL ####[id number] [place] [address] HCO3 (Bld) [Moles/Vol] 33 mmol/L High 21 - 32 [facility] Comment on above: Performed By: #### R ENAL ####[id number] [place] [address] Phosphate [Mass/Vol] 4.6 mg/dL Normal 2.5 - 4.9 [facility] Comment on above: Result Comment: The performance characteristics of phosphorus testing in heparinized plasma have been validated by the individual laboratory site where testing is performed. Testing on heparinized plasma is not approved by the FDA; however, such approval is not necessary. Performed By: #### R ENAL ####[id number] [place] [address] Potassium [Moles/Vol] 4.5 mmol/L Normal 3.5 - 5.3 [facility] Comment on above: Performed By: #### R ENAL ####[id number] [place] [address] Sodium [Moles/Vol] 140 mmol/L Normal 136 - 145 [facility] Comment on above: Performed By: #### R ENAL ####[id number] [place] [address] Urea nitrogen [Mass/Vol] 21 mg/dL Normal 6 - 23 [facility] Comment on above: Performed By: #### R ENAL ####[id number] [place] [address] VITAMIN B12on 08-14-2022 Cobalamin (Vitamin B12) [Mass/Vol] 501 pg/mL Normal 211 - 911 [facility] Comment on above: Performed By: #### V TB12 ####[id number] [place] [address] CBC AND DIFFERENTIALon 08-13 % AUTOMATED IMMATURE GRAN 1.8 % High 0.0 - 0.9 [facility] Comment on above: Result Comment: Nicki ture Granulocyte Count (IG) includes promyelocytes, myelocytes and metamyelocytes but does not include bands. Percent differential counts (%) should be interpreted in the context of the absolute cell counts (cells/L). Performed By: #### C BCDF ####[id number] [place] [address] Basophils (Bld) [#/Vol] 0.06 10*3/uL Normal 0.00 - 0.10 [facility] Comment on above: Performed By: #### C BCDF ####[id number] [place] [address] Basophils/100 WBC (Bld) 0.5 % Normal 0.0 - 2.0 [facility] Comment on above: Performed By: #### C BCDF ####[id number] [place] [address] Eosinophils (Bld) [#/Vol] 0.21 10*3/uL Normal 0.00 - 0.70 [facility] Comment on above: Performed By: #### C BCDF ####[id number] [place] [address] Eosinophils/100 WBC (Bld) 1.7 % Normal 0.0 - 6.0 [facility] Comment on above: Performed By: #### C BCDF ####[id number] [place] [address] Erythrocyte distribution width (RBC) [Ratio] 13.7 % Normal 11.5 - 14.5 [facility] Comment on above: Performed By: #### C BCDF ####[id number] [place] [address] Hematocrit (Bld) [Volume fraction] 43.7 % Normal 41.0 - 52.0 [facility] Comment on above: Performed By: #### C BCDF ####[id number] [place] [address] Hemoglobin (Bld) [Mass/Vol] 13.5 g/dL Normal 13.5 - 17.5 [facility] Comment on above: Performed By: #### C BCDF ####[id number] [place] [address] Lymphocytes (Bld) [#/Vol] 1.53 10*3/uL Normal 1.20 - 4.80 [facility] Comment on above: Performed By: #### C BCDF ####[id number] [place] [address] Lymphocytes/100 WBC (Bld) 12.3 % Normal 13.0 - 44.0 [facility] Comment on above: Performed By: #### C BCDF ####[id number] [place] [address] MCHC (RBC) [Mass/Vol] 30.9 g/dL Low 32.0 - 36.0 [facility] Comment on above: Performed By: #### C BCDF ####[id number] [place] [address] MCV (RBC) [Entitic vol] 101 fL High 80 - 100 [facility] Comment on above: Performed By: #### C BCDF ####[id number] [place] [address] Monocytes (Bld) [#/Vol] 0.90 10*3/uL Normal 0.10 - 1.00 [facility] Comment on above: Performed By: #### C BCDF ####[id number] [place] [address] Monocytes/100 WBC (Bld) 7.2 % Normal 2.0 - 10.0 [facility] Comment on above: Performed By: #### C BCDF ####[id number] [place] [address] Neutrophils (Bld) [#/Vol] 9.50 10*3/uL High 1.20 - 7.70 [facility] Comment on above: Performed By: #### C BCDF ####[id number] [place] [address] Neutrophils/100 WBC (Bld) 76.5 % Normal 40.0 - 80.0 [facility] Comment on above: Performed By: #### C BCDF ####[id number] [place] [address] NUCLEATED RBC 0.0 /100 WBC Normal 0.0-0.0 [facility] Comment on above: Performed By: #### C BCDF ####[id number] [place] [address] Platelets (Bld) [#/Vol] 250 10*3/uL Normal 150 - 450 [facility] Comment on above: Performed By: #### C BCDF ####[id number] [place] [address] RBC 4.34 x10E12/L Low 4.50 - 5.90 [facility] Comment on above: Performed By: #### C BCDF ####[id number] [place] [address] WBC (Bld) [#/Vol] 12.4 10*3/uL High 4.4 - 11.3 [facility] Comment on above: Performed By: #### C BCDF ####[id number] [place] [address] % AUTOMATED IMMATURE GRAN Canceled Normal [facility] Comment on above: Order Comment: TEST CBC AND DIFFERENTIAL WAS CANCELLED, 08/13/2022 09:39 DUPLICATE ORDER. Result Comment: Nicki ture Granulocyte Count (IG) includes promyelocytes, myelocytes and metamyelocytes but does not include bands. Percent differential counts (%) should be interpreted in the context of the absolute cell counts (cells/L). Performed By: #### C BCDF ####[id number] [place] [address] % BASOPHIL Canceled Normal [facility] Comment on above: Order Comment: TEST CBC AND DIFFERENTIAL WAS CANCELLED, 08/13/2022 09:39 DUPLICATE ORDER. Performed By: #### C BCDF ####[id number] [place] [address] % EOSINOPHIL Canceled Normal [facility] Comment on above: Order Comment: TEST CBC AND DIFFERENTIAL WAS CANCELLED, 08/13/2022 09:39 DUPLICATE ORDER. Performed By: #### C BCDF ####[id number] [place] [address] % LYMPHOCYTE Canceled Normal [facility] Comment on above: Order Comment: TEST CBC AND DIFFERENTIAL WAS CANCELLED, 08/13/2022 09:39 DUPLICATE ORDER. Performed By: #### C BCDF ####[id number] [place] [address] % MONOCYTE Canceled Normal [facility] Comment on above: Order Comment: TEST CBC AND DIFFERENTIAL WAS CANCELLED, 08/13/2022 09:39 DUPLICATE ORDER. Performed By: #### C BCDF ####[id number] [place] [address] % NEUTROPHIL Canceled Normal [facility] Comment on above: Order Comment: TEST CBC AND DIFFERENTIAL WAS CANCELLED, 08/13/2022 09:39 DUPLICATE ORDER. Performed By: #### C BCDF ####[id number] [place] [address] BASOPHIL Canceled Normal [facility] Comment on above: Order Comment: TEST CBC AND DIFFERENTIAL WAS CANCELLED, 08/13/2022 09:39 DUPLICATE ORDER. Performed By: #### C BCDF ####[id number] [place] [address] DIFFERENTIAL Canceled Normal [facility] Comment on above: Order Comment: TEST CBC AND DIFFERENTIAL WAS CANCELLED, 08/13/2022 09:39 DUPLICATE ORDER. Performed By: #### C BCDF ####[id number] [place] [address] EOSINOPHIL Canceled Normal [facility] Comment on above: Order Comment: TEST CBC AND DIFFERENTIAL WAS CANCELLED, 08/13/2022 09:39 DUPLICATE ORDER. Performed By: #### C BCDF ####[id number] [place] [address] HCT Canceled Normal [facility] Comment on above: Order Comment: TEST CBC AND DIFFERENTIAL WAS CANCELLED, 08/13/2022 09:39 DUPLICATE ORDER. Performed By: #### C BCDF ####[id number] [place] [address] HGB Canceled Normal [facility] Comment on above: Order Comment: TEST CBC AND DIFFERENTIAL WAS CANCELLED, 08/13/2022 09:39 DUPLICATE ORDER. Performed By: #### C BCDF ####[id number] [place] [address] LYMPHOCYTE Canceled Normal [facility] Comment on above: Order Comment: TEST CBC AND DIFFERENTIAL WAS CANCELLED, 08/13/2022 09:39 DUPLICATE ORDER. Performed By: #### C BCDF ####[id number] [place] [address] MCHC Canceled Normal [facility] Comment on above: Order Comment: TEST CBC AND DIFFERENTIAL WAS CANCELLED, 08/13/2022 09:39 DUPLICATE ORDER. Performed By: #### C BCDF ####[id number] [place] [address] MCV Canceled Normal [facility] Comment on above: Order Comment: TEST CBC AND DIFFERENTIAL WAS CANCELLED, 08/13/2022 09:39 DUPLICATE ORDER. Performed By: #### C BCDF ####[id number] [place] [address] MONOCYTE Canceled Normal [facility] Comment on above: Order Comment: TEST CBC AND DIFFERENTIAL WAS CANCELLED, 08/13/2022 09:39 DUPLICATE ORDER. Performed By: #### C BCDF ####[id number] [place] [address] NEUTROPHIL Canceled Normal [facility] Comment on above: Order Comment: TEST CBC AND DIFFERENTIAL WAS CANCELLED, 08/13/2022 09:39 DUPLICATE ORDER. Performed By: #### C BCDF ####[id number] [place] [address] NUCLEATED RBC Canceled Normal [facility] Comment on above: Order Comment: TEST CBC AND DIFFERENTIAL WAS CANCELLED, 08/13/2022 09:39 DUPLICATE ORDER. Performed By: #### C BCDF ####[id number] [place] [address] PLT Canceled Normal [facility] Comment on above: Order Comment: TEST CBC AND DIFFERENTIAL WAS CANCELLED, 08/13/2022 09:39 DUPLICATE ORDER. Performed By: #### C BCDF ####[id number] [place] [address] RBC Canceled Normal [facility] Comment on above: Order Comment: TEST CBC AND DIFFERENTIAL WAS CANCELLED, 08/13/2022 09:39 DUPLICATE ORDER. Performed By: #### C BCDF ####[id number] [place] [address] RDW-CV Canceled Normal [facility] Comment on above: Order Comment: TEST CBC AND DIFFERENTIAL WAS CANCELLED, 08/13/2022 09:39 DUPLICATE ORDER. Performed By: #### C BCDF ####[id number] [place] [address] WBC Canceled Normal [facility] Comment on above: Order Comment: TEST CBC AND DIFFERENTIAL WAS CANCELLED, 08/13/2022 09:39 DUPLICATE ORDER. Performed By: #### C BCDF ####[id number] [place] [address] Daily Progress Note-Cardiolo gyon 08-13-2022 Daily Progress Note-Cardiology Normal [facility] Discharge [id number] Discharge Profile2 Normal [facility] HEPARIN ASSAY,UFHon 08-14-19 23 HEPARIN ASSAY,UFH 0.4 IU/mL Normal [facility] [place] Comment on above: Result Comment: The therapeutic reference range for UFH may be either 0.3-0.6 IU/mL or 0.3-0.7 IU/mL based on the clinical setting for anticoagulant therapy and the associated nomogram used. For heparin dosing guidelines based on clinical scenario and Heparin Assay results, please refer to local Pharmacy and the [facility] Guidelines for Anticoagulation therapy available on the [facility] intranet at:[email or web address] Performed By: #### H AUF ####[id number] [place] [address] HEPARIN ASSAY,UFH Canceled Normal [facility] [place] Comment on above: Order Comment: TEST HEPARIN ASSAY,UFH WAS CANCELLED, 08/13/2022 08:58 QNS, PLEASE RESUBMIT.. Result Comment: The therapeutic reference range for UFH may be either 0.3-0.6 IU/mL or 0.3-0.7 IU/mL based on the clinical setting for anticoagulant therapy and the associated nomogram used. For heparin dosing guidelines based on clinical scenario and Heparin Assay results, please refer to local Pharmacy and [facility] [place] [place] Guidelines for Anticoagulation therapy available on the [facility] intranet at:[email or web address] Performed By: #### H AUF ####[id number] [place] [address] MAGNESIUMon 08-13-2022 Magnesium [Mass/Vol] 1.95 mg/dL Normal 1.60 - 2.40 [facility] Comment on above: Performed By: #### M G ####[id number] [place] [address] MAGNESIUM Canceled Normal [facility] Comment on above: Order Comment: TEST MAGNESIUM WAS CANCELLED, 08/13/2022 09:39 DUPLICATE ORDER. Performed By: #### M G ####[id number] [place] [address] RENAL FUNCTION PANELon 08-13 Albumin [Mass/Vol] 2.9 g/dL Low 3.4 - 5.0 [facility] Comment on above: Performed By: #### R ENAL ####[id number] [place] [address] Anion gap [Moles/Vol] 14 mmol/L Normal 10 - 20 [facility] Comment on above: Performed By: #### R ENAL ####[id number] [place] [address] Calcium [Mass/Vol] 8.7 mg/dL Normal 8.6 - 10.6 [facility] Comment on above: Performed By: #### R ENAL ####[id number] [place] [address] Chloride [Moles/Vol] 99 mmol/L Normal 98 - 107 [facility] Comment on above: Performed By: #### R ENAL ####[id number] [place] [address] Creatinine [Mass/Vol] 1.34 mg/dL High 0.50 - 1.30 [facility] Comment on above: Performed By: #### R ENAL ####[id number] [place] [address] GFR/1.73 sq M.predicted among non-blacks MDRD (S/P/Bld) [Vol rate/Area] 67 mL/min/{1.73_m2} Normal >90 [facility] Comment on above: Result Comment: CALC ULATIONS OF ESTIMATED GFR ARE PERFORMED USING THE 2020 CKD-EPI STUDY REFIT EQUATION WITHOUT THE RACE VARIABLE FOR THE IDMS-TRACEABLE CREATININE METHODS.https://jasn.asnjournals.org/content/early/A SN.[email or web address] Performed By: #### R ENAL ####[id number] [place] [address] Glucose [Mass/Vol] 113 mg/dL High 74 - 99 [facility] Comment on above: Performed By: #### R ENAL ####[id number] [place] [address] HCO3 (Bld) [Moles/Vol] 28 mmol/L Normal 21 - 32 [facility] Comment on above: Performed By: #### R ENAL ####[id number] [place] [address] Phosphate [Mass/Vol] 3.9 mg/dL Normal 2.5 - 4.9 [facility] Comment on above: Result Comment: The performance characteristics of phosphorus testing in heparinized plasma have been validated by the individual laboratory site where testing is performed. Testing on heparinized plasma is not approved by the FDA; however, such approval is not necessary. Performed By: #### R ENAL ####[id number] [place] [address] Potassium [Moles/Vol] 4.7 mmol/L Normal 3.5 - 5.3 [facility] Comment on above: Performed By: #### R ENAL ####[id number] [place] [address] Sodium [Moles/Vol] 136 mmol/L Normal 136 - 145 [facility] Comment on above: Performed By: #### R ENAL ####[id number] [place] [address] Urea nitrogen [Mass/Vol] 22 mg/dL Normal 6 - 23 [facility] Comment on above: Performed By: #### R ENAL ####[id number] [place] [address] ALBUMIN Canceled Normal [facility] Comment on above: Order Comment: TEST RENAL FUNCTION PANEL WAS CANCELLED, 08/13/2022 09:39 DUPLICATE ORDER. Performed By: #### R ENAL ####[id number] [place] [address] ANION GAP Canceled Normal [facility] Comment on above: Order Comment: TEST RENAL FUNCTION PANEL WAS CANCELLED, 08/13/2022 09:39 DUPLICATE ORDER. Performed By: #### R ENAL ####[id number] [place] [address] BICARBONATE Canceled Normal [facility] Comment on above: Order Comment: TEST RENAL FUNCTION PANEL WAS CANCELLED, 08/13/2022 09:39 DUPLICATE ORDER. Performed By: #### R ENAL ####[id number] [place] [address] CALCIUM Canceled Normal [facility] Comment on above: Order Comment: TEST RENAL FUNCTION PANEL WAS CANCELLED, 08/13/2022 09:39 DUPLICATE ORDER. Performed By: #### R ENAL ####[id number] [place] [address] CHLORIDE Canceled Normal [facility] Comment on above: Order Comment: TEST RENAL FUNCTION PANEL WAS CANCELLED, 08/13/2022 09:39 DUPLICATE ORDER. Performed By: #### R ENAL ####[id number] [place] [address] CREATININE Canceled Normal [facility] Comment on above: Order Comment: TEST RENAL FUNCTION PANEL WAS CANCELLED, 08/13/2022 09:39 DUPLICATE ORDER. Performed By: #### R ENAL ####[id number] [place] [address] eGFR FEMALE Canceled Normal [facility] Comment on above: Order Comment: TEST RENAL FUNCTION PANEL WAS CANCELLED, 08/13/2022 09:39 DUPLICATE ORDER. Result Comment: CALC ULATIONS OF ESTIMATED GFR ARE PERFORMED USING THE 2020 CKD-EPI STUDY REFIT EQUATION WITHOUT THE RACE VARIABLE FOR THE IDMS-TRACEABLE CREATININE METHODS.https://jasn.asnjournals.org/content/early//A SN.2042431483 Performed By: #### R ENAL ####[id number] [place] [address] eGFR MALE Canceled Normal [facility] Comment on above: Order Comment: TEST RENAL FUNCTION PANEL WAS CANCELLED, 08/13/2022 09:39 DUPLICATE ORDER. Result Comment: CALC ULATIONS OF ESTIMATED GFR ARE PERFORMED USING THE 2020 CKD-EPI STUDY REFIT EQUATION WITHOUT THE RACE VARIABLE FOR THE IDMS-TRACEABLE CREATININE METHODS.https://jasn.asnjournals.org/content/early/A SN.9261514964 Performed By: #### R ENAL ####[id number] [place] [address] GLUCOSE Canceled Normal [facility] Comment on above: Order Comment: TEST RENAL FUNCTION PANEL WAS CANCELLED, 08/13/2022 09:39 DUPLICATE ORDER. Performed By: #### R ENAL ####[id number] [place] [address] PHOSPHORUS Canceled Normal [facility] Comment on above: Order Comment: TEST RENAL FUNCTION PANEL WAS CANCELLED, 08/13/2022 09:39 DUPLICATE ORDER. Result Comment: The performance characteristics of phosphorus testing in heparinized plasma have been validated by the individual laboratory site where testing is performed. Testing on heparinized plasma is not approved by the FDA; however, such approval is not necessary. Performed By: #### R ENAL ####[id number] [place] [address] POTASSIUM Canceled Normal [facility] Comment on above: Order Comment: TEST RENAL FUNCTION PANEL WAS CANCELLED, 08/13/2022 09:39 DUPLICATE ORDER. Performed By: #### R ENAL ####[id number] [place] [address] SODIUM Canceled Normal [facility] Comment on above: Order Comment: TEST RENAL FUNCTION PANEL WAS CANCELLED, 08/13/2022 09:39 DUPLICATE ORDER. Performed By: #### R ENAL ####[id number] [place] [address] UREA NITROGEN Canceled Normal [facility] Comment on above: Order Comment: TEST RENAL FUNCTION PANEL WAS CANCELLED, 08/13/2022 09:39 DUPLICATE ORDER. Performed By: #### R ENAL ####[id number] [place] [address] CBC AND DIFFERENTIALon 08-12 % AUTOMATED IMMATURE GRAN 2.1 % High 0.0 - 0.9 [facility] Comment on above: Result Comment: Nicki ture Granulocyte Count (IG) includes promyelocytes, myelocytes and metamyelocytes but does not include bands. Percent differential counts (%) should be interpreted in the context of the absolute cell counts (cells/L). Performed By: #### C BCDF ####[id number] [place] [address] Basophils (Bld) [#/Vol] 0.11 10*3/uL High 0.00 - 0.10 [facility] Comment on above: Performed By: #### C BCDF ####[id number] [place] [address] Basophils/100 WBC (Bld) 0.9 % Normal 0.0 - 2.0 [facility] Comment on above: Performed By: #### C BCDF ####[id number] [place] [address] Eosinophils (Bld) [#/Vol] 0.32 10*3/uL Normal 0.00 - 0.70 [facility] Comment on above: Performed By: #### C BCDF ####[id number] [place] [address] Eosinophils/100 WBC (Bld) 2.6 % Normal 0.0 - 6.0 [facility] Comment on above: Performed By: #### C BCDF ####[id number] [place] [address] Erythrocyte distribution width (RBC) [Ratio] 13.6 % Normal 11.5 - 14.5 [facility] Comment on above: Performed By: #### C BCDF ####[id number] [place] [address] Hematocrit (Bld) [Volume fraction] 41.5 % Normal 41.0 - 52.0 [facility] Comment on above: Performed By: #### C BCDF ####[id number] [place] [address] Hemoglobin (Bld) [Mass/Vol] 13.5 g/dL Normal 13.5 - 17.5 [facility] Comment on above: Performed By: #### C BCDF ####[id number] [place] [address] Lymphocytes (Bld) [#/Vol] 1.81 10*3/uL Normal 1.20 - 4.80 [facility] Comment on above: Performed By: #### C BCDF ####[id number] [place] [address] Lymphocytes/100 WBC (Bld) 14.5 % Normal 13.0 - 44.0 [facility] Comment on above: Performed By: #### C BCDF ####[id number] [place] [address] MCHC (RBC) [Mass/Vol] 32.5 g/dL Normal 32.0 - 36.0 [facility] Comment on above: Performed By: #### C BCDF ####[id number] [place] [address] MCV (RBC) [Entitic vol] 99 fL Normal 80 - 100 [facility] Comment on above: Performed By: #### C BCDF ####[id number] [place] [address] Monocytes (Bld) [#/Vol] 0.84 10*3/uL Normal 0.10 - 1.00 [facility] Comment on above: Performed By: #### C BCDF ####[id number] [place] [address] Monocytes/100 WBC (Bld) 6.8 % Normal 2.0 - 10.0 [facility] Comment on above: Performed By: #### C BCDF ####[id number] [place] [address] Neutrophils (Bld) [#/Vol] 9.10 10*3/uL High 1.20 - 7.70 [facility] Comment on above: Performed By: #### C BCDF ####[id number] [place] [address] Neutrophils/100 WBC (Bld) 73.1 % Normal 40.0 - 80.0 [facility] Comment on above: Performed By: #### C BCDF ####[id number] [place] [address] NUCLEATED RBC 0.4 /100 WBC Normal 0.0-0.0 [facility] Comment on above: Performed By: #### C BCDF ####[id number] [place] [address] Platelets (Bld) [#/Vol] 244 10*3/uL Normal 150 - 450 [facility] Comment on above: Performed By: #### C BCDF ####[id number] [place] [address] RBC 4.21 x10E12/L Low 4.50 - 5.90 [facility] Comment on above: Performed By: #### C BCDF ####[id number] [place] [address] WBC (Bld) [#/Vol] 12.4 10*3/uL High 4.4 - 11.3 [facility] Comment on above: Performed By: #### C BCDF ####[id number] [place] [address] Clinical Event Note-cardiac surgery updateon 08-12-2022 Clinical Event Note-cardiac surgery update Normal [facility] Consult-Oncologyon 3 Consult-Oncology Normal [facility] Daily Progress Note - Critic al Care-CICUon 08-12-2022 Daily Progress Note - Critical Care-CICU Normal [facility] Daily Progress Note-Cardiolo gyon 08-12-2022 Daily Progress Note-Cardiology Normal [facility] HEPARIN ASSAY,UFHon 08-13-19 23 HEPARIN ASSAY,UFH 0.3 IU/mL Normal [facility] [place] Comment on above: Result Comment: The therapeutic reference range for UFH may be either 0.3-0.6 IU/mL or 0.3-0.7 IU/mL based on the clinical setting for anticoagulant therapy and the associated nomogram used. For heparin dosing guidelines based on clinical scenario and Heparin Assay results, please refer to local Pharmacy and the [facility] Guidelines for Anticoagulation therapy available on the [facility] intranet at:[email or web address] Performed By: #### H AUF ####[id number] [place] [address] HEPARIN ASSAY,UFH 0.4 IU/mL Normal [facility] [place] Comment on above: Result Comment: The therapeutic reference range for UFH may be either 0.3-0.6 IU/mL or 0.3-0.7 IU/mL based on the clinical setting for anticoagulant therapy and the associated nomogram used. For heparin dosing guidelines based on clinical scenario and Heparin Assay results, please refer to local Pharmacy and the [facility] Guidelines for Anticoagulation therapy available on the [facility] intranet at:[email or web address]_[email or web address].aspx Performed By: #### H AUF ####[id number] [place] [address] MAGNESIUMon 08-12-2022 Magnesium [Mass/Vol] 1.95 mg/dL Normal 1.60 - 2.40 [facility] Comment on above: Performed By: #### M G ####[id number] [place] [address] RENAL FUNCTION PANELon 08-12 Albumin [Mass/Vol] 2.8 g/dL Low 3.4 - 5.0 [facility] Comment on above: Performed By: #### R ENAL ####[id number] [place] [address] Anion gap [Moles/Vol] 12 mmol/L Normal 10 - 20 [facility] Comment on above: Performed By: #### R ENAL ####[id number] [place] [address] Calcium [Mass/Vol] 9.0 mg/dL Normal 8.6 - 10.6 [facility] Comment on above: Performed By: #### R ENAL ####[id number] [place] [address] Chloride [Moles/Vol] 100 mmol/L Normal 98 - 107 [facility] Comment on above: Performed By: #### R ENAL ####[id number] [place] [address] Creatinine [Mass/Vol] 1.24 mg/dL Normal 0.50 - 1.30 [facility] Comment on above: Performed By: #### R ENAL ####[id number] [place] [address] GFR/1.73 sq M.predicted among non-blacks MDRD (S/P/Bld) [Vol rate/Area] 74 mL/min/{1.73_m2} Normal >90 [facility] Comment on above: Result Comment: CALC ULATIONS OF ESTIMATED GFR ARE PERFORMED USING THE 2020 CKD-EPI STUDY REFIT EQUATION WITHOUT THE RACE VARIABLE FOR THE IDMS-TRACEABLE CREATININE METHODS.https://jasn.asnjournals.org/content/early//A SN.5531455325 Performed By: #### R ENAL ####[id number] [place] [address] Glucose [Mass/Vol] 108 mg/dL High 74 - 99 [facility] Comment on above: Performed By: #### R ENAL ####[id number] [place] [address] HCO3 (Bld) [Moles/Vol] 30 mmol/L Normal 21 - 32 [facility] Comment on above: Performed By: #### R ENAL ####[id number] [place] [address] Phosphate [Mass/Vol] 4.3 mg/dL Normal 2.5 - 4.9 [facility] Comment on above: Result Comment: The performance characteristics of phosphorus testing in heparinized plasma have been validated by the individual laboratory site where testing is performed. Testing on heparinized plasma is not approved by the FDA; however, such approval is not necessary. Performed By: #### R ENAL ####[id number] [place] [address] Potassium [Moles/Vol] 4.7 mmol/L Normal 3.5 - 5.3 [facility] Comment on above: Performed By: #### R ENAL ####[id number] [place] [address] Sodium [Moles/Vol] 137 mmol/L Normal 136 - 145 [facility] Comment on above: Performed By: #### R ENAL ####[id number] [place] [address] Urea nitrogen [Mass/Vol] 22 mg/dL Normal 6 - 23 [facility] Comment on above: Performed By: #### R ENAL ####[id number] [place] [address] TH CHEST 1 VIEWon 08-12-2022 TH CHEST 1 VIEW Normal [facility] Transesophageal Echoon 08-12 Transesophageal Echo Normal [facility] BLOOD CULTURE, BACTERIALon 0 08-11-2022 BLOOD CULTURE, BACTERIAL Normal [facility] Comment on above: Performed By: #### B LDC ####[id number] [place] [address] CBC AND DIFFERENTIALon 08-11 % AUTOMATED IMMATURE GRAN 1.9 % High 0.0 - 0.9 [facility] Comment on above: Result Comment: Nicki ture Granulocyte Count (IG) includes promyelocytes, myelocytes and metamyelocytes but does not include bands. Percent differential counts (%) should be interpreted in the context of the absolute cell counts (cells/L). Performed By: #### C BCDF ####[id number] [place] [address] Basophils (Bld) [#/Vol] 0.06 10*3/uL Normal 0.00 - 0.10 [facility] Comment on above: Performed By: #### C BCDF ####[id number] [place] [address] Basophils/100 WBC (Bld) 0.5 % Normal 0.0 - 2.0 [facility] Comment on above: Performed By: #### C BCDF ####[id number] [place] [address] Eosinophils (Bld) [#/Vol] 0.29 10*3/uL Normal 0.00 - 0.70 [facility] Comment on above: Performed By: #### C BCDF ####[id number] [place] [address] Eosinophils/100 WBC (Bld) 2.5 % Normal 0.0 - 6.0 [facility] Comment on above: Performed By: #### C BCDF ####[id number] [place] [address] Erythrocyte distribution width (RBC) [Ratio] 13.4 % Normal 11.5 - 14.5 [facility] Comment on above: Performed By: #### C BCDF ####[id number] [place] [address] Hematocrit (Bld) [Volume fraction] 38.5 % Low 41.0 - 52.0 [facility] Comment on above: Performed By: #### C BCDF ####[id number] [place] [address] Hemoglobin (Bld) [Mass/Vol] 12.8 g/dL Low 13.5 - 17.5 [facility] Comment on above: Performed By: #### C BCDF ####[id number] [place] [address] Lymphocytes (Bld) [#/Vol] 1.77 10*3/uL Normal 1.20 - 4.80 [facility] Comment on above: Performed By: #### C BCDF ####[id number] [place] [address] Lymphocytes/100 WBC (Bld) 15.2 % Normal 13.0 - 44.0 [facility] Comment on above: Performed By: #### C BCDF ####[id number] [place] [address] MCHC (RBC) [Mass/Vol] 33.2 g/dL Normal 32.0 - 36.0 [facility] Comment on above: Performed By: #### C BCDF ####[id number] [place] [address] MCV (RBC) [Entitic vol] 96 fL Normal 80 - 100 [facility] Comment on above: Performed By: #### C BCDF ####[id number] [place] [address] Monocytes (Bld) [#/Vol] 1.13 10*3/uL High 0.10 - 1.00 [facility] Comment on above: Performed By: #### C BCDF ####[id number] [place] [address] Monocytes/100 WBC (Bld) 9.7 % Normal 2.0 - 10.0 [facility] Comment on above: Performed By: #### C BCDF ####[id number] [place] [address] Neutrophils (Bld) [#/Vol] 8.17 10*3/uL High 1.20 - 7.70 [facility] Comment on above: Performed By: #### C BCDF ####[id number] [place] [address] Neutrophils/100 WBC (Bld) 70.2 % Normal 40.0 - 80.0 [facility] Comment on above: Performed By: #### C BCDF ####[id number] [place] [address] NUCLEATED RBC 0.0 /100 WBC Normal 0.0-0.0 [facility] Comment on above: Performed By: #### C BCDF ####[id number] [place] [address] Platelets (Bld) [#/Vol] 255 10*3/uL Normal 150 - 450 [facility] Comment on above: Performed By: #### C BCDF ####[id number] [place] [address] RBC 4.00 x10E12/L Low 4.50 - 5.90 [facility] Comment on above: Performed By: #### C BCDF ####[id number] [place] [address] WBC (Bld) [#/Vol] 11.6 10*3/uL High 4.4 - 11.3 [facility] Comment on above: Performed By: #### C BCDF ####[id number] [place] [address] Clinical Note - Pharmacy v2- Medication Educationon 08-11-2022 Clinical Note - Pharmacy v2-Medication Education Normal [facility] Consult-Infectious Diseaseon 08-11-2022 Consult-Infectious Disease Normal [facility] Daily Progress Note - Critic al Care-CICUon 08-11-2022 Daily Progress Note - Critical Care-CICU Normal [facility] Daily Progress Note-Cardiac Surgeryon 08-11-2022 Daily Progress Note-Cardiac Surgery Normal [facility] HEPARIN ASSAY,UFHon 08-12-19 HEPARIN ASSAY,UFH 0.2 IU/mL Normal [facility], [place] Comment on above: Result Comment: The therapeutic reference range for UFH may be either 0.3-0.6 IU/mL or 0.3-0.7 IU/mL based on the clinical setting for anticoagulant therapy and the associated nomogram used. For heparin dosing guidelines based on clinical scenario and Heparin Assay results, please refer to local Pharmacy and the [facility] Guidelines for Anticoagulation therapy available on the [facility] intranet at:[email or web address] [email or web address] [email or web address]_Guidelines_for_[email or web address].aspx Performed By: #### H AUF ####[id number] [place] [address] HEPARIN ASSAY,UFH 0.3 IU/mL Normal [facility] [place] Comment on above: Result Comment: The therapeutic reference range for UFH may be either 0.3-0.6 IU/mL or 0.3-0.7 IU/mL based on the clinical setting for anticoagulant therapy and the associated nomogram used. For heparin dosing guidelines based on clinical scenario and Heparin Assay results, please refer to local Pharmacy and the [facility] Guidelines for Anticoagulation therapy available on the [facility] intranet at:[email or web address]_Guidelines_for_Anticoagu.aspx Performed By: #### H AUF ####[id number] [place] [address] HEPARIN ASSAY,UFH 0.2 IU/mL Normal [facility] [place] Comment on above: Result Comment: The therapeutic reference range for UFH may be either 0.3-0.6 IU/mL or 0.3-0.7 IU/mL based on the clinical setting for anticoagulant therapy and the associated nomogram used. For heparin dosing guidelines based on clinical scenario and Heparin Assay results, please refer to local Pharmacy and the [facility] Guidelines for Anticoagulation therapy available on the [facility] intranet at:[email or web address]/Pages/[facility]_Guidelines_for_Anticoagu.aspx Performed By: #### H AUF ####[id number] [place] [address] HEPARIN ASSAY,UFH 0.4 IU/mL Normal [facility], [place] Comment on above: Result Comment: The therapeutic reference range for UFH may be either 0.3-0.6 IU/mL or 0.3-0.7 IU/mL based on the clinical setting for anticoagulant therapy and the associated nomogram used. For heparin dosing guidelines based on clinical scenario and Heparin Assay results, please refer to local Pharmacy and the [facility] Guidelines for Anticoagulation therapy available on the [facility] intranet at:[email or web address]/[email or web address]_Guidelines_for_Anticoagu.aspx Performed By: #### H AUF ####[id number] [id number] HEPARIN ASSAY,UFH 0.2 IU/mL Normal [facility] [place] Comment on above: Result Comment: The therapeutic reference range for UFH may be either 0.3-0.6 IU/mL or 0.3-0.7 IU/mL based on the clinical setting for anticoagulant therapy and the associated nomogram used. For heparin dosing guidelines based on clinical scenario and Heparin Assay results, please refer to local Pharmacy and the [facility] Guidelines for Anticoagulation therapy available on the [facility] intranet at:[email or web address]_Guidelines_for_Anticoagu.aspx Performed By: #### H AUF ####[id number] [place] [address] MAGNESIUMon 08-11-2022 Magnesium [Mass/Vol] 1.86 mg/dL Normal 1.60 - 2.40 [facility] Comment on above: Performed By: #### M G ####[id number] [place] [address] PT Evaluation v2-individual therapyon 08-11-2022 PT Evaluation v2-individual therapy Normal [facility] RENAL FUNCTION PANELon 08-11 Albumin [Mass/Vol] 2.8 g/dL Low 3.4 - 5.0 [facility] Comment on above: Performed By: #### R ENAL ####[id number] [place] [address] Anion gap [Moles/Vol] 14 mmol/L Normal 10 - 20 [facility] Comment on above: Performed By: #### R ENAL ####[id number] [place] [address] Calcium [Mass/Vol] 8.4 mg/dL Low 8.6 - 10.6 [facility] Comment on above: Performed By: #### R ENAL ####[id number] [place] [address] Chloride [Moles/Vol] 97 mmol/L Low 98 - 107 [facility] Comment on above: Performed By: #### R ENAL ####[id number] [place] [address] Creatinine [Mass/Vol] 1.28 mg/dL Normal 0.50 - 1.30 [facility] Comment on above: Performed By: #### R ENAL ####[id number] [place] [address] GFR/1.73 sq M.predicted among non-blacks MDRD (S/P/Bld) [Vol rate/Area] 71 mL/min/{1.73_m2} Normal >90 [facility] Comment on above: Result Comment: CALC ULATIONS OF ESTIMATED GFR ARE PERFORMED USING THE 2020 CKD-EPI STUDY REFIT EQUATION WITHOUT THE RACE VARIABLE FOR THE IDMS-TRACEABLE CREATININE METHODS.https://jasn.asnjournals.org/content//A SN.9175772705 Performed By: #### R ENAL ####[id number] [place] [address] Glucose [Mass/Vol] 89 mg/dL Normal 74 - 99 [facility] Comment on above: Performed By: #### R ENAL ####[id number] [place] [address] HCO3 (Bld) [Moles/Vol] 33 mmol/L High 21 - 32 [facility] Comment on above: Performed By: #### R ENAL ####[id number] [place] [address] Phosphate [Mass/Vol] 4.2 mg/dL Normal 2.5 - 4.9 [facility] Comment on above: Result Comment: The performance characteristics of phosphorus testing in heparinized plasma have been validated by the individual laboratory site where testing is performed. Testing on heparinized plasma is not approved by the FDA; however, such approval is not necessary. Performed By: #### R ENAL ####[id number] [place] [address] Potassium [Moles/Vol] 4.7 mmol/L Normal 3.5 - 5.3 [facility] Comment on above: Performed By: #### R ENAL ####[id number] [place] [address] Sodium [Moles/Vol] 139 mmol/L Normal 136 - 145 [facility] Comment on above: Performed By: #### R ENAL ####[id number] [place] [address] Urea nitrogen [Mass/Vol] 24 mg/dL High 6 - 23 [facility] Comment on above: Performed By: #### R ENAL ####[id number] [place] [address] TH CHEST 1 VIEWon 08-11-2022 CHEST 1 VIEW Normal [facility] US VENOUS DUPLEX LOWER EXTRE MITY VEINS BILATERALon 08-11-2022 US VENOUS DUPLEX LOWER EXTREMITY VEINS BILATERAL Normal [facility] Admission Risk Screen - Adul ton 08-10-2022 Admission Risk Screen - Adult Normal [facility] BNPon 08-10-2022 Natriuretic peptide B (Bld) [Mass/Vol] 231 pg/mL High 0 - 99 [facility] Comment on above: Result Comment: . <1 00 pg/mL - Heart failure -142 pg/mL - Intermediate probability of acute heart. failure exacerbation. Correlate with clinical. context and patient history. >=300 pg/mL - Heart Failure likely. Correlate with clinical. context and patient history. Biotin interference may cause falsely decreased results. Patients taking a Biotin dose of up to 5 mg/day should refrain from taking Biotin for 24 hours before sample collection. Providers may contact their local laboratory for further information. Performed By: #### B NP2 ####[id number] [place] [address] CBCon 08-10-2022 Erythrocyte distribution width (RBC) [Ratio] 13.3 % Normal 11.5 - 14.5 [facility] Comment on above: Performed By: #### C BC ####[id number] [place] [address] Hematocrit (Bld) [Volume fraction] 39.0 % Low 41.0 - 52.0 [facility] Comment on above: Performed By: #### C BC ####[id number] [place] [address] Hemoglobin (Bld) [Mass/Vol] 12.9 g/dL Low 13.5 - 17.5 [facility] Comment on above: Performed By: #### C BC ####[id number] [place] [address] MCHC (RBC) [Mass/Vol] 33.1 g/dL Normal 32.0 - 36.0 [facility] Comment on above: Performed By: #### C BC ####[id number] [place] [address] MCV (RBC) [Entitic vol] 96 fL Normal 80 - 100 [facility] Comment on above: Performed By: #### C BC ####[id number] [place] [address] NUCLEATED RBC 0.0 /100 WBC Normal 0.0-0.0 [facility] Comment on above: Performed By: #### C BC ####[id number] [place] [address] Platelets (Bld) [#/Vol] 260 10*3/uL Normal 150 - 450 [facility] Comment on above: Performed By: #### C BC ####[id number] [place] [address] RBC 4.06 x10E12/L Low 4.50 - 5.90 [facility] Comment on above: Performed By: #### C BC ####[id number] [place] [address] WBC (Bld) [#/Vol] 12.5 10*3/uL High 4.4 - 11.3 [facility] Comment on above: Performed By: #### C BC ####[id number] [place] [address] CBC AND DIFFERENTIALon 08-10 % AUTOMATED IMMATURE GRAN 2.0 % High 0.0 - 0.9 [facility] Comment on above: Result Comment: Nicki ture Granulocyte Count (IG) includes promyelocytes, myelocytes and metamyelocytes but does not include bands. Percent differential counts (%) should be interpreted in the context of the absolute cell counts (cells/L). Performed By: #### C BCDF ####[id number] [place] [address] Basophils (Bld) [#/Vol] 0.06 10*3/uL Normal 0.00 - 0.10 [facility] Comment on above: Performed By: #### C BCDF ####[id number] [place] [address] Basophils/100 WBC (Bld) 0.5 % Normal 0.0 - 2.0 [facility] Comment on above: Performed By: #### C BCDF ####[id number] [place] [address] Eosinophils (Bld) [#/Vol] 0.31 10*3/uL Normal 0.00 - 0.70 [facility] Comment on above: Performed By: #### C BCDF ####[id number] [place] [address] Eosinophils/100 WBC (Bld) 2.8 % Normal 0.0 - 6.0 [facility] Comment on above: Performed By: #### C BCDF ####[id number] [place] [address] Erythrocyte distribution width (RBC) [Ratio] 13.7 % Normal 11.5 - 14.5 [facility] Comment on above: Performed By: #### C BCDF ####[id number] [place] [address] Hematocrit (Bld) [Volume fraction] 42.5 % Normal 41.0 - 52.0 [facility] Comment on above: Performed By: #### C BCDF ####[id number] [place] [address] Hemoglobin (Bld) [Mass/Vol] 13.1 g/dL Low 13.5 - 17.5 [facility] Comment on above: Performed By: #### C BCDF ####[id number] [place] [address] Lymphocytes (Bld) [#/Vol] 1.77 10*3/uL Normal 1.20 - 4.80 [facility] Comment on above: Performed By: #### C BCDF ####[id number] [place] [address] Lymphocytes/100 WBC (Bld) 15.9 % Normal 13.0 - 44.0 [facility] Comment on above: Performed By: #### C BCDF ####[id number] [place] [address] MCHC (RBC) [Mass/Vol] 30.8 g/dL Low 32.0 - 36.0 [facility] Comment on above: Performed By: #### C BCDF ####[id number] [place] [address] MCV (RBC) [Entitic vol] 101 fL High 80 - 100 [facility] Comment on above: Performed By: #### C BCDF ####[id number] [place] [address] Monocytes (Bld) [#/Vol] 1.33 10*3/uL High 0.10 - 1.00 [facility] Comment on above: Performed By: #### C BCDF ####[id number] [place] [address] Monocytes/100 WBC (Bld) 11.9 % Normal 2.0 - 10.0 [facility] Comment on above: Performed By: #### C BCDF ####[id number] [place] [address] Neutrophils (Bld) [#/Vol] 7.45 10*3/uL Normal 1.20 - 7.70 [facility] Comment on above: Performed By: #### C BCDF ####[id number] [place] [address] Neutrophils/100 WBC (Bld) 66.9 % Normal 40.0 - 80.0 [facility] Comment on above: Performed By: #### C BCDF ####[id number] [place] [address] NUCLEATED RBC 0.0 /100 WBC Normal 0.0-0.0 [facility] Comment on above: Performed By: #### C BCDF ####[id number] [place] [address] Platelets (Bld) [#/Vol] 260 10*3/uL Normal 150 - 450 [facility] Comment on above: Performed By: #### C BCDF ####[id number] [place] [address] RBC 4.21 x10E12/L Low 4.50 - 5.90 [facility] Comment on above: Performed By: #### C BCDF ####[id number] [place] [address] WBC (Bld) [#/Vol] 11.1 10*3/uL Normal 4.4 - 11.3 [facility] Comment on above: Performed By: #### C BCDF ####[id number] [place] [address] COAGULATION SCREENon 023 aPTT Coag (Bld) [Time] 122 s Critically high 27 - 38 [facility] Comment on above: Order Comment: Familia perez- RB to CATIE STOVER, 08/09/2022 23:59 Result Comment: Note new reference range as of 08/02/2022 at 10:00am.. Called- RB to CATIE STOVER, 08/09/2022 23:59 Performed By: #### C OAGS ####[id number] [place] [address] PT Coag (PPP) [Time] 17.3 s High 9.8 - 12.8 [facility] Comment on above: Order Comment: Familia perez- RB to CATIE STOVER, 08/09/2022 23:59 Result Comment: Note new reference range as of 08/02/2022 at 10:00am. Performed By: #### C OAGS ####[id number] [place] [address] PT, INR 1.5 High 0.9 - 1.1 [facility] Comment on above: Order Comment: Familia perez- RB to CATIE STOVER, 08/09/2022 23:59 Performed By: #### C OAGS ####[id number] [place] [address] Consult-Cardiac Surgeryon Consult-Cardiac Surgery Normal [facility] Rvzqhtt-Pisugtuuygof-Jfmw Sa lvageon 08-10-2022 Tvamxda-Kohbeoxlfpwo-W imb Salvage Normal [facility] Daily Progress Note - Critic al Careon 08-10-2022 Daily Progress Note - Critical Care Normal [facility] Discharge Planning Pbdi4wt 0 08-10-2022 Discharge Planning Note2 Normal [facility] EMR ADDONon 08-10-2022 ADDON CONFIRMATION REQUEST REC'D Normal [facility] Comment on above: Performed By: #### E MRAD ####NO LOCATION NEEDED Electrocardiogram 12 Leadon 08-10-2022 Electrocardiogram 12 Lead Normal [facility] HEMOGLOBIN A1Con 08-10-2022 Glucose [Mass/Vol] 120 mg/dL Normal [facility] Comment on above: Performed By: #### H BA1E ####[id number] [place] [address] HbA1c (Bld) [Mass fraction] 5.8 % Abnormal [facility] Comment on above: Result Comment: Diag nosis of Diabetes-Adults Non-Diabetic: < or = 5.6% Increased risk for developing diabetes: 5.7-6.4% Diagnostic of diabetes: > or = 6.5%. Monitoring of Diabetes Age (y) Therapeutic Goal (%) Adults: >18 <7.0 Pediatrics: 13-18 <7.5 7-12 <8.0 0- 6 7.5-8.5 [place] [employer]. Diabetes Care 33(S1), Feb 2009. Performed By: #### H BA1E ####[id number] [place] [address] HEPARIN ASSAY,UFHon 08-11-19 HEPARIN ASSAY,UFH 0.3 IU/mL Normal [facility] [place] Comment on above: Result Comment: The therapeutic reference range for UFH may be either 0.3-0.6 IU/mL or 0.3-0.7 IU/mL based on the clinical setting for anticoagulant therapy and the associated nomogram used. For heparin dosing guidelines based on clinical scenario and Heparin Assay results, please refer to local Pharmacy and the [facility] Guidelines for Anticoagulation therapy available on the [facility] intranet at:[email or web address] Performed By: #### H AUF ####[id number] [place] [address] HEPARIN ASSAY,UFH 0.7 IU/mL Normal [facility], [place] Comment on above: Result Comment: The therapeutic reference range for UFH may be either 0.3-0.6 IU/mL or 0.3-0.7 IU/mL based on the clinical setting for anticoagulant therapy and the associated nomogram used. For heparin dosing guidelines based on clinical scenario and Heparin Assay results, please refer to local Pharmacy and the [facility] Guidelines for Anticoagulation therapy available on the [facility] intranet at:[email or web address] Performed By: #### H AUF ####[id number] [place] [address] HEPATIC FUNCTION PANELon Albumin [Mass/Vol] 2.7 g/dL Low 3.4 - 5.0 [facility] Comment on above: Performed By: #### H EPFP ####[id number] [place] [address] Performed By: #### R ENAL ####[id number] [place] [address] ALP [Catalytic activity/Vol] 85 U/L Normal 33 - 120 [facility] Comment on above: Performed By: #### H EPFP ####[id number] [place] [address] ALT [Catalytic activity/Vol] 33 U/L Normal 10 - 52 [facility] Comment on above: Result Comment: Kristi ents treated with Sulfasalazine may generate falsely decreased results for ALT. Performed By: #### H EPFP ####[id number] [place] [address] AST [Catalytic activity/Vol] 30 U/L Normal 9 - 39 [facility] Comment on above: Performed By: #### H EPFP ####[id number] [place] [address] Bilirubin [Mass/Vol] 0.6 mg/dL Normal 0.0 - 1.2 [facility] Comment on above: Performed By: #### H EPFP ####[id number] [place] [address] Bilirubin.indirect [Mass/Vol] 0.3 mg/dL Normal 0.0 - 0.3 [facility] Comment on above: Performed By: #### H EPFP ####[id number] [place] [address] Protein [Mass/Vol] 5.8 g/dL Low 6.4 - 8.2 [facility] Comment on above: Performed By: #### H EPFP ####[id number] [place] [address] LACTATEon 08-10-2022 LACTATE Canceled Normal [facility] Comment on above: Order Comment: TEST LACTATE WAS CANCELLED, 08/10/2022 07:51 NO SPECIMEN RECEIVED IN LAB. Result Comment: Isabela puncture immediately after or during the administration of Metamizole may lead to falsely low results. Testing should be performed immediately prior to Metamizole dosing. Performed By: #### L ACT ####[id number] [place] [address] Lactate [Moles/Vol] 0.7 mmol/L Normal 0.4 - 2.0 [facility] Comment on above: Result Comment: Isabela puncture immediately after or during the administration of Metamizole may lead to falsely low results. Testing should be performed immediately prior to Metamizole dosing. Performed By: #### L ACT ####[id number] [place] [address] LEGIONELLA AG, URINEon 08-10 LEGIONELLA AG, URINE Negative Normal Negative [facility] Comment on above: Result Comment: NEGA TIVE FOR LEGIONELLA PNEUMOPHILIASEROGROUP 1 ANTIGEN IN URINE,SUGGESTING NO CURRENT OR PAST INFECTION. Performed By: #### L EGUR ####[id number] [place] [address] Lab Specimen Source Normal [facility] Comment on above: Performed By: #### L EGUR ####[id number] [place] [address] LIPID PANEL (CORONARY RISK 2 )on 08-10-2022 Cholesterol [Mass/Vol] 71 mg/dL Normal 0 - 199 [facility] Comment on above: Result Comment: . AG E DESIRABLE BORDERLINE HIGH HIGH 0-19 Y 0 - 169 170 - 199 >/= 200 20-24 Y 0 - 189 190 - 224 >/= 225 >24 Y 0 - 199 200 - 239 >/= 240 All ranges are based on fasting samples. Specific therapeutic targets will vary based on patient-specific cardiac risk.. Pediatric guidelines reference:Pediatrics 2011, 128(S5). Adult guidelines reference: NCEP ATPIII Guidelines, NIRANJAN 2001, 258:2486-97. Venipuncture immediately after or during the administration of Metamizole may lead to falsely low results. Testing should be performed immediately prior to Metamizole dosing. Performed By: #### L IPID ####[id number] [place] [address] Cholesterol in HDL [Mass/Vol] 19.7 mg/dL Abnormal [facility] Comment on above: Result Comment: . AG E VERY LOW LOW NORMAL HIGH 0-19 Y < 35 < 40 40-45 ---- 20-24 Y ---- < 40 >45 ---- >24 Y ---- < 40 40-60 >60. Performed By: #### L IPID ####[id number] [place] [address] Cholesterol in LDL [Mass/Vol] 33 mg/dL Normal 0 - 99 [facility] Comment on above: Result Comment: . NE CHAPARRO BA AGE DESIRABLE OPTIMAL HIGH HIGH VERY HIGH 0-19 Y 0 - 109 --- 110-129 >/= 130 ---- 20-24 Y 0 - 119 --- 120-159 >/= 160 ---- >24 Y 0 - 99 100-129 130-159 160-189 >/=190. Performed By: #### L IPID ####[id number] [place] [address] Cholesterol in VLDL [Mass/Vol] 19 mg/dL Normal 0 - 40 [facility] Comment on above: Performed By: #### L IPID ####[id number] [place] [address] Cholesterol.total/Chol esterol in HDL [Mass ratio] 3.6 {ratio} Normal [facility] Comment on above: Result Comment: REF VALUESDESIRABLE < 3.4HIGH RISK > 5.0 Performed By: #### L IPID ####[id number] [place] [address] Triglyceride [Mass/Vol] 93 mg/dL Normal 0 - 149 [facility] Comment on above: Result Comment: . AG E DESIRABLE BORDERLINE HIGH HIGH VERY HIGH 0 D-90 D 19 - 174 ---- ---- ----91 D- 9 Y 0 - 74 75 - 99 >/= 100 ---- 10-19 Y 0 - 89 90 - 129 >/= 130 ---- 20-24 Y 0 - 114 115 - 149 >/= 150 ---- >24 Y 0 - 149 150 - 199 200- 499 >/= 500. Venipuncture immediately after or during the administration of Metamizole may lead to falsely low results. Testing should be performed immediately prior to Metamizole dosing. Performed By: #### L IPID ####[id number] [place] [address] MAGNESIUMon 08-10-2022 Magnesium [Mass/Vol] 2.03 mg/dL Normal 1.60 - 2.40 [facility] Comment on above: Performed By: #### M G ####[id number] [place] [address] Magnesium [Mass/Vol] 2.15 mg/dL Normal 1.60 - 2.40 [facility] Comment on above: Performed By: #### M G ####[id number] [place] [address] Order Reconciliationon 08-10 Order Reconciliation Normal [facility] PROCALCITONINon 08-10-2022 PROCALCITONIN 0.15 ng/mL Abnormal <=0.07 [facility] Comment on above: Result Comment: Proc alcitonin (PCT) results measured serially canaid in decision-making for antibiotic discontinuation inpatients with suspected or confirmed sepsis in conjunctionwith additional clinical information. Antibioticdiscontinuation may be considered with a change in PCT of>80% from the peak result or when PCT falls below 0.50 ng/mL..Procalcitonin results should not be used in isolation butshould be interpreted in conjunction with additional clinicaland laboratory findings. Procalcitonin results should not beused to guide the initiation of antibiotic therapy..Falsely low PCT values in the presence of bacterial infectionmay occur in early infection, with atypical pathogens,localized infections, and subacute infectious endocarditis..Falsely elevated results outside of severe bacterialinfection/sepsis may be seen in patients with renal failureor insufficiency, severe trauma or berkowitz, recent majorabdominal/cardiac surgery, acute multi-organ failure, rarelyin patients with medullary thyroid carcinoma and rareneuroendocrine tumors, and non-specific interfering antibodies(heterophile antibodies, rheumatoid factor, human anti-mouseantibodies (HAMA), etc)..Performance of the PCT test in pediatric patients (<18yo), women, immunocompromised patients, and patients onimmunomodulatory medications has not been evaluated. Performed By: #### P CALC ####[id number] [place] [address] PT Evaluation v2-attemptedon 08-10-2022 PT Evaluation v2-attempted Normal [facility] Patient Profile - Adult v2on 08-10-2022 Patient Profile - Adult v2 Normal [facility] RENAL FUNCTION PANELon 08-10 Albumin [Mass/Vol] 2.8 g/dL Low 3.4 - 5.0 [facility] Comment on above: Performed By: #### R ENAL ####[id number] [place] [address] Anion gap [Moles/Vol] 12 mmol/L Normal 10 - 20 [facility] Comment on above: Performed By: #### R ENAL ####[id number] [place] [address] Calcium [Mass/Vol] 8.4 mg/dL Low 8.6 - 10.6 [facility] Comment on above: Performed By: #### R ENAL ####[id number] [place] [address] Chloride [Moles/Vol] 98 mmol/L Normal 98 - 107 [facility] Comment on above: Performed By: #### R ENAL ####[id number] [place] [address] Creatinine [Mass/Vol] 1.21 mg/dL Normal 0.50 - 1.30 [facility] Comment on above: Performed By: #### R ENAL ####[id number] [place] [address] GFR/1.73 sq M.predicted among non-blacks MDRD (S/P/Bld) [Vol rate/Area] 76 mL/min/{1.73_m2} Normal >90 [facility] Comment on above: Result Comment: CALC ULATIONS OF ESTIMATED GFR ARE PERFORMED USING THE 2020 CKD-EPI STUDY REFIT EQUATION WITHOUT THE RACE VARIABLE FOR THE IDMS-TRACEABLE CREATININE METHODS.https://jasn.asnjournals.org/content/early//A SN.8932455832 Performed By: #### R ENAL ####[id number] [place] [address] Glucose [Mass/Vol] 94 mg/dL Normal 74 - 99 [facility] Comment on above: Performed By: #### R ENAL ####[id number] [place] [address] HCO3 (Bld) [Moles/Vol] 31 mmol/L Normal 21 - 32 [facility] Comment on above: Performed By: #### R ENAL ####[id number] [place] [address] Phosphate [Mass/Vol] 4.2 mg/dL Normal 2.5 - 4.9 [facility] Comment on above: Result Comment: The performance characteristics of phosphorus testing in heparinized plasma have been validated by the individual laboratory site where testing is performed. Testing on heparinized plasma is not approved by the FDA; however, such approval is not necessary. Performed By: #### R ENAL ####[id number] [place] [address] Potassium [Moles/Vol] 5.0 mmol/L Normal 3.5 - 5.3 [facility] Comment on above: Performed By: #### R ENAL ####[id number] [place] [address] Sodium [Moles/Vol] 136 mmol/L Normal 136 - 145 [facility] Comment on above: Performed By: #### R ENAL ####[id number] [place] [address] Urea nitrogen [Mass/Vol] 23 mg/dL Normal 6 - 23 [facility] Comment on above: Performed By: #### R ENAL ####[id number] [place] [address] Anion gap [Moles/Vol] 13 mmol/L Normal 10 - 20 [facility] Comment on above: Performed By: #### R ENAL ####[id number] [place] [address] Calcium [Mass/Vol] 8.5 mg/dL Low 8.6 - 10.6 [facility] Comment on above: Performed By: #### R ENAL ####[id number] [place] [address] Chloride [Moles/Vol] 99 mmol/L Normal 98 - 107 [facility] Comment on above: Performed By: #### R ENAL ####[id number] [place] [address] Creatinine [Mass/Vol] 1.15 mg/dL Normal 0.50 - 1.30 [facility] Comment on above: Performed By: #### R ENAL ####[id number] [place] [address] GFR/1.73 sq M.predicted among non-blacks MDRD (S/P/Bld) [Vol rate/Area] 81 mL/min/{1.73_m2} Normal >90 [facility] Comment on above: Result Comment: CALC ULATIONS OF ESTIMATED GFR ARE PERFORMED USING THE 2020 CKD-EPI STUDY REFIT EQUATION WITHOUT THE RACE VARIABLE FOR THE IDMS-TRACEABLE CREATININE METHODS.https://jasn.asnjournals.org/content//A SN.0433771800 Performed By: #### R ENAL ####[id number] [place] [address] Glucose [Mass/Vol] 94 mg/dL Normal 74 - 99 [facility] Comment on above: Performed By: #### R ENAL ####[id number] [place] [address] HCO3 (Bld) [Moles/Vol] 32 mmol/L Normal 21 - 32 [facility] Comment on above: Performed By: #### R ENAL ####[id number] [place] [address] Phosphate [Mass/Vol] 4.7 mg/dL Normal 2.5 - 4.9 [facility] Comment on above: Result Comment: The performance characteristics of phosphorus testing in heparinized plasma have been validated by the individual laboratory site where testing is performed. Testing on heparinized plasma is not approved by the FDA; however, such approval is not necessary. Performed By: #### R ENAL ####[id number] [place] [address] Potassium [Moles/Vol] 5.0 mmol/L Normal 3.5 - 5.3 [facility] Comment on above: Performed By: #### R ENAL ####[id number] [place] [address] Sodium [Moles/Vol] 139 mmol/L Normal 136 - 145 [facility] Comment on above: Performed By: #### R ENAL ####[id number] [place] [address] Urea nitrogen [Mass/Vol] 26 mg/dL High 6 - 23 [facility] Comment on above: Performed By: #### R ENAL ####[id number] [place] [address] S.PNEUMONIAE AG,Uon 08-11-19 23 S.PNEUMONIAE AG,U Negative Normal Negative [facility], [place] Comment on above: Result Comment: Pres umptive negative for pneumococcal pneumonia, suggesting no current or recent infection. Infection due to S. pneumoniae cannot be ruled out since the antigen present in the sample may be below the detection limit of the test. Performed By: #### S PNAG ####[id number] [place] [address] TH ABDOMEN AP VIEWon 08-10-2 023 ABDOMEN AP VIEW Normal [facility] TH CHEST 1 VIEWon 06-28-2023 TH CHEST 1 VIEW Normal [facility] TH CT ANGIO CHEST FOR PEon 0 08-10-2022 CT ANGIO CHEST FOR PE Normal [facility] TROPONIN I, HIGH SENSITIVITY on 08-10-2022 TROPONIN I, HIGH SENSITIVITY 13 ng/L Normal 0 - 53 [facility] Comment on above: Result Comment: .Les s than 99th percentile of normal range cutoff-Female and children under 18 years old <35 ng/L; Male <54 ng/L: NegativeRepeat testing should be performed if clinically indicated..Female and children under 18 years old 35-120 ng/L; Male 54-120 ng/L:Consistent with possible cardiac damage and possible increased clinicalrisk. Serial measurements may help to assess extent of myocardial damage..>120 ng/L: Consistent with cardiac damage, increased clinical risk andmyocardial infarction. Serial measurements may help assess extent ofmyocardial damage..NOTE: Children less than 1 year old may have higher baseline troponinlevels and results should be interpreted in conjunction with the overallclinical context..NOTE: Troponin I testing is performed using a different[facility] methodology [facility] than at [facility]. Direct result comparisons should onlybe made within the same method. Performed By: #### T [facility] ####[id number] [place] [address] TYPE + SCREENon 08-10-2022 ABO TYPE O Normal [facility] Comment on above: Performed By: #### T +S ####[id number] [id number] RH TYPE Positive Normal [facility] Comment on above: Performed By: #### T +S ####[id number] [place] [address] VAS LAB Venous Duplex Ultra sound DVTon 08-10-2022 VAS LAB Venous Duplex Ultrasound DVT Normal [facility] LABORATORYOrdered By: Pam Paul on 08-09-2022 aPTT Coag (PPP) [Time] 54.8 s Invalid Interpretation Code 25.0 - 35.0 seconds AH Auto Coag SS Heparin dose (APTT) Unknown (08/09/22 7:22 PM) Invalid Interpretation Code AH Auto Coag SS LABORATORYOrdered By: SYSTEM SYSTEM on 08-09-2022 Basophils (Bld) [#/Vol] 0.1 103/mcL Invalid Interpretation Code 0.0 - 0.3 10^3/mcL Workflow SS Basophils/100 WBC (Bld) 0.9 % Invalid Interpretation Code 0.0 - 2.5 % AH Workflow SS Calcium [Mass/Vol] 8.5 mg/dL Invalid Interpretation Code 8.7 - 10.4 mg/dL ADM SS Chloride [Moles/Vol] 103 mmol/L Invalid Interpretation Code 98 - 110 mEq/L ADM SS CO2 [Moles/Vol] 32 mmol/L Invalid Interpretation Code 22 - 32 mEq/L ADM SS Creatinine [Mass/Vol] 1.24 mg/dL Invalid Interpretation Code 0.60 - 1.40 mg/dL ADM SS Electrolyte Balance 1.0 mEq/L Invalid Interpretation Code 4.0 - 15.0 mEq/L ADM SS Eosinophils (Bld) [#/Vol] 0.3 103/mcL Invalid Interpretation Code 0.0 - 0.7 10^3/mcL Workflow SS Eosinophils/100 WBC (Bld) 2.7 % Invalid Interpretation Code 0.0 - 6.0 % AH Workflow SS Erythrocyte distribution width (RBC) [Ratio] 14.4 % Invalid Interpretation Code 11.5 - 15.5 % Workflow SS GFR/1.73 sq M.predicted among blacks MDRD (S/P/Bld) [Vol rate/Area] ml/min/1.73sqm Invalid Interpretation Code ADM SS GFR/1.73 sq M.predicted among non-blacks MDRD (S/P/Bld) [Vol rate/Area] ml/min/1.73sqm Invalid Interpretation Code ADM SS Glucose [Mass/Vol] 107 mg/dL Invalid Interpretation Code 70 - 110 mg/dL ADM SS Hematocrit (Bld) [Volume fraction] 39.2 % Invalid Interpretation Code 40.0 - 52.0 % Workflow SS Hemoglobin (Bld) [Mass/Vol] 12.8 G/dL Invalid Interpretation Code 13.0 - 17.5 G/dL AH Workflow SS Lymphocytes (Bld) [#/Vol] 1.6 103/mcL Invalid Interpretation Code 0.9 - 4.3 10^3/mcL Workflow SS Lymphocytes/100 WBC (Bld) 14.7 % Invalid Interpretation Code 20.0 - 40.0 % AH Workflow SS Magnesium [Mass/Vol] 1.8 mg/dL Invalid Interpretation Code 1.6 - 2.4 mg/dL AH ADM SS MCH (RBC) [Entitic mass] 32.0 pg Invalid Interpretation Code 27.0 - 33.0 pg AH Workflow SS MCHC 32.6 G/dL Invalid Interpretation Code 32.0 - 36.0 G/dL AH Workflow SS MCV (RBC) [Entitic vol] 98.2 fL Invalid Interpretation Code 81.0 - 100.0 fL AH Workflow SS Monocytes (Bld) [#/Vol] 1.4 103/mcL Invalid Interpretation Code 0.1 - 1.4 10^3/mcL AH Workflow SS Monocytes/100 WBC (Bld) 13.3 % Invalid Interpretation Code 2.0 - 13.0 % AH Workflow SS Neutrophils (Bld) [#/Vol] 7.3 103/mcL Invalid Interpretation Code 2.3 - 8.1 10^3/mcL AH Workflow SS Neutrophils/100 WBC (Bld) 68.4 % Invalid Interpretation Code 50.0 - 75.0 % AH Workflow SS Platelet mean volume (Bld) [Entitic vol] 8.0 fL Invalid Interpretation Code 6.4 - 10.5 fL Workflow SS Platelets (Bld) [#/Vol] 249 103/mcL Invalid Interpretation Code 150 - 450 10^3/mcL AH Workflow SS Potassium [Moles/Vol] 4.7 mmol/L Invalid Interpretation Code 3.5 - 5.0 mEq/L ADM SS Comment on above: Result Comment: Spec imen slightly hemolyzed. RBC (Bld) [#/Vol] 3.99 106/mcL Invalid Interpretation Code 4.50 - 6.00 10^6/mcL AH Workflow SS Sodium [Moles/Vol] 136 mmol/L Invalid Interpretation Code 136 - 145 mEq/L ADM SS Urea nitrogen [Mass/Vol] 24.0 mg/dL Invalid Interpretation Code 8.0 - 22.0 mg/dL ADM SS Urea nitrogen/Creatinine [Mass ratio] 19.4 ratio Invalid Interpretation Code 10.0 - 22.0 ratio ADM SS WBC (Bld) [#/Vol] 10.6 103/mcL Invalid Interpretation Code 4.5 - 10.8 10^3/mcL Workflow SS LABORATORYOrdered By: SYSTEM SYSTEM on 06-26-2023 Basophils (Bld) [#/Vol] 0.1 103/mcL Invalid Interpretation Code 0.0 - 0.3 10^3/mcL Workflow SS Basophils/100 WBC (Bld) 1.0 % Invalid Interpretation Code 0.0 - 2.5 % AH Workflow SS Calcium [Mass/Vol] 8.8 mg/dL Invalid Interpretation Code 8.7 - 10.4 mg/dL ADM SS Chloride [Moles/Vol] 100 mmol/L Invalid Interpretation Code 98 - 110 mEq/L ADM SS CO2 [Moles/Vol] 34 mmol/L Invalid Interpretation Code 22 - 32 mEq/L ADM SS Creatinine [Mass/Vol] 1.25 mg/dL Invalid Interpretation Code 0.60 - 1.40 mg/dL ADM SS Electrolyte Balance 3.0 mEq/L Invalid Interpretation Code 4.0 - 15.0 mEq/L ADM SS Eosinophils (Bld) [#/Vol] 0.2 103/mcL Invalid Interpretation Code 0.0 - 0.7 10^3/mcL Workflow SS Eosinophils/100 WBC (Bld) 2.1 % Invalid Interpretation Code 0.0 - 6.0 % Workflow SS Erythrocyte distribution width (RBC) [Ratio] 14.8 % Invalid Interpretation Code 11.5 - 15.5 % Workflow SS GFR/1.73 sq M.predicted among blacks MDRD (S/P/Bld) [Vol rate/Area] ml/min/1.73sqm Invalid Interpretation Code ADM SS GFR/1.73 sq M.predicted among non-blacks MDRD (S/P/Bld) [Vol rate/Area] ml/min/1.73sqm Invalid Interpretation Code ADM SS Glucose [Mass/Vol] 101 mg/dL Invalid Interpretation Code 70 - 110 mg/dL ADM SS Hematocrit (Bld) [Volume fraction] 39.0 % Invalid Interpretation Code 40.0 - 52.0 % Workflow SS Hemoglobin (Bld) [Mass/Vol] 12.7 G/dL Invalid Interpretation Code 13.0 - 17.5 G/dL Workflow SS Lymphocytes (Bld) [#/Vol] 1.4 103/mcL Invalid Interpretation Code 0.9 - 4.3 10^3/mcL Workflow SS Lymphocytes/100 WBC (Bld) 12.9 % Invalid Interpretation Code 20.0 - 40.0 % AH Workflow SS Magnesium [Mass/Vol] 1.9 mg/dL Invalid Interpretation Code 1.6 - 2.4 mg/dL ADM SS MCH (RBC) [Entitic mass] 31.8 pg Invalid Interpretation Code 27.0 - 33.0 pg AH Workflow SS MCHC 32.6 G/dL Invalid Interpretation Code 32.0 - 36.0 G/dL Workflow SS MCV (RBC) [Entitic vol] 97.7 fL Invalid Interpretation Code 81.0 - 100.0 fL AH Workflow SS Monocytes (Bld) [#/Vol] 1.4 103/mcL Invalid Interpretation Code 0.1 - 1.4 10^3/mcL AH Workflow SS Monocytes/100 WBC (Bld) 12.2 % Invalid Interpretation Code 2.0 - 13.0 % AH Workflow SS Neutrophils (Bld) [#/Vol] 8.1 103/mcL Invalid Interpretation Code 2.3 - 8.1 10^3/mcL Workflow SS Neutrophils/100 WBC (Bld) 71.8 % Invalid Interpretation Code 50.0 - 75.0 % Workflow SS Platelet mean volume (Bld) [Entitic vol] 8.0 fL Invalid Interpretation Code 6.4 - 10.5 fL Workflow SS Platelets (Bld) [#/Vol] 245 103/mcL Invalid Interpretation Code 150 - 450 10^3/mcL Workflow SS Potassium [Moles/Vol] 4.8 mmol/L Invalid Interpretation Code 3.5 - 5.0 mEq/L ADM SS RBC (Bld) [#/Vol] 3.99 106/mcL Invalid Interpretation Code 4.50 - 6.00 10^6/mcL Workflow SS Sodium [Moles/Vol] 137 mmol/L Invalid Interpretation Code 136 - 145 mEq/L ADM SS Urea nitrogen [Mass/Vol] 25.0 mg/dL Invalid Interpretation Code 8.0 - 22.0 mg/dL ADM SS Urea nitrogen/Creatinine [Mass ratio] 20.0 ratio Invalid Interpretation Code 10.0 - 22.0 ratio ADM SS WBC (Bld) [#/Vol] 11.3 103/mcL Invalid Interpretation Code 4.5 - 10.8 10^3/mcL Workflow SS LABORATORYOrdered By: Rohan Aponte on 08-08-2022 aPTT Coag (PPP) [Time] 123.0 s Invalid Interpretation Code 25.0 - 35.0 seconds AH Auto Coag SS Heparin dose (APTT) Unknown (08/08/22 1:27 AM) Invalid Interpretation Code AH Auto Coag SS LABORATORYOrdered By: Luzma Samuel on 08-07-2022 aPTT Coag (PPP) [Time] 143.6 s Invalid Interpretation Code 25.0 - 35.0 seconds AH Auto Coag SS Comment on above: Result Comment: Read back by Jane Pratt RN. 08/07/2022 19:46:47 EDT Heparin dose (APTT) Heparin IV (08/07/22 7:14 PM) Invalid Interpretation Code AH Auto Coag SS INR Coag (PPP) [Relative time] 1.3 {INR} Invalid Interpretation Code AH Auto Coag SS PT Coag (PPP) [Time] 15.1 s Invalid Interpretation Code 9.0 - 14.8 seconds AH Auto Coag SS LABORATORYOrdered By: SYSTEM SYSTEM on 08-07-2022 Basophils (Bld) [#/Vol] 0.1 103/mcL Invalid Interpretation Code 0.0 - 0.3 10^3/mcL Workflow SS Basophils/100 WBC (Bld) 0.6 % Invalid Interpretation Code 0.0 - 2.5 % Workflow SS Calcium [Mass/Vol] 8.7 mg/dL Invalid Interpretation Code 8.7 - 10.4 mg/dL ADM SS Chloride [Moles/Vol] 99 mmol/L Invalid Interpretation Code 98 - 110 mEq/L ADM SS CO2 [Moles/Vol] 34 mmol/L Invalid Interpretation Code 22 - 32 mEq/L ADM SS Creatinine [Mass/Vol] 1.25 mg/dL Invalid Interpretation Code 0.60 - 1.40 mg/dL ADM SS Electrolyte Balance 0.0 mEq/L Invalid Interpretation Code 4.0 - 15.0 mEq/L ADM SS Eosinophils (Bld) [#/Vol] 0.2 103/mcL Invalid Interpretation Code 0.0 - 0.7 10^3/mcL AH Workflow SS Eosinophils/100 WBC (Bld) 1.7 % Invalid Interpretation Code 0.0 - 6.0 % Workflow SS Erythrocyte distribution width (RBC) [Ratio] 14.7 % Invalid Interpretation Code 11.5 - 15.5 % Workflow SS GFR/1.73 sq M.predicted among blacks MDRD (S/P/Bld) [Vol rate/Area] ml/min/1.73sqm Invalid Interpretation Code ADM SS GFR/1.73 sq M.predicted among non-blacks MDRD (S/P/Bld) [Vol rate/Area] ml/min/1.73sqm Invalid Interpretation Code AH ADM SS Glucose [Mass/Vol] 128 mg/dL Invalid Interpretation Code 70 - 110 mg/dL ADM SS Hematocrit (Bld) [Volume fraction] 39.0 % Invalid Interpretation Code 40.0 - 52.0 % AH Workflow SS Hemoglobin (Bld) [Mass/Vol] 12.8 G/dL Invalid Interpretation Code 13.0 - 17.5 G/dL AH Workflow SS Lymphocytes (Bld) [#/Vol] 1.3 103/mcL Invalid Interpretation Code 0.9 - 4.3 10^3/mcL AH Workflow SS Lymphocytes/100 WBC (Bld) 9.6 % Invalid Interpretation Code 20.0 - 40.0 % AH Workflow SS MCH (RBC) [Entitic mass] 32.2 pg Invalid Interpretation Code 27.0 - 33.0 pg AH Workflow SS MCHC 32.8 G/dL Invalid Interpretation Code 32.0 - 36.0 G/dL AH Workflow SS MCV (RBC) [Entitic vol] 98.3 fL Invalid Interpretation Code 81.0 - 100.0 fL AH Workflow SS Monocytes (Bld) [#/Vol] 1.4 103/mcL Invalid Interpretation Code 0.1 - 1.4 10^3/mcL AH Workflow SS Monocytes/100 WBC (Bld) 10.3 % Invalid Interpretation Code 2.0 - 13.0 % AH Workflow SS Neutrophils (Bld) [#/Vol] 10.8 103/mcL Invalid Interpretation Code 2.3 - 8.1 10^3/mcL AH Workflow SS Neutrophils/100 WBC (Bld) 77.8 % Invalid Interpretation Code 50.0 - 75.0 % AH Workflow SS Platelet mean volume (Bld) [Entitic vol] 8.2 fL Invalid Interpretation Code 6.4 - 10.5 fL AH Workflow SS Platelets (Bld) [#/Vol] 201 103/mcL Invalid Interpretation Code 150 - 450 10^3/mcL AH Workflow SS Potassium [Moles/Vol] 5.0 mmol/L Invalid Interpretation Code 3.5 - 5.0 mEq/L AH ADM SS RBC (Bld) [#/Vol] 3.97 106/mcL Invalid Interpretation Code 4.50 - 6.00 10^6/mcL Workflow SS Sodium [Moles/Vol] 133 mmol/L Invalid Interpretation Code 136 - 145 mEq/L ADM SS Urea nitrogen [Mass/Vol] 28.0 mg/dL Invalid Interpretation Code 8.0 - 22.0 mg/dL ADM SS Urea nitrogen/Creatinine [Mass ratio] 22.4 ratio Invalid Interpretation Code 10.0 - 22.0 ratio ADM SS WBC (Bld) [#/Vol] 13.9 103/mcL Invalid Interpretation Code 4.5 - 10.8 10^3/mcL Workflow SS LABORATORYOrdered By: Ekta Ardon on 08-06-2022 Barometric Pressure 708 mm[Hg] Invalid Interpretation Code Auto Chem SS Base excess Calc (Bld) [Moles/Vol] 1.9 mmol/L Invalid Interpretation Code Auto Chem SS CO2 (Bld) [Partial pressure] 69.2 mm[Hg] Invalid Interpretation Code 32.0 - 46.0 mm Hg Auto Chem SS Comment on above: Result Comment: .. CO2 [Moles/Vol] 33.1 mmol/L Invalid Interpretation Code 22.0 - 30.0 mmol/L Auto Chem SS HCO3 (Bld) [Moles/Vol] 31.0 mmol/L Invalid Interpretation Code 21.0 - 29.0 mmol/L Auto Chem SS Oxygen (Bld) [Partial pressure] 92.5 mm[Hg] Invalid Interpretation Code 74.0 - 108.0 mm Hg Auto Chem SS pH (Bld) 7.269 [pH] Invalid Interpretation Code 7.380 - 7.460 Auto Chem SS LABORATORYOrdered By: SYSTEM SYSTEM on 08-05-2022 Albumin BCP dye [Mass/Vol] 2.6 G/dL Invalid Interpretation Code 3.2 - 4.8 G/dL ADM SS Albumin/Globulin [Mass ratio] 0.7 {ratio} Invalid Interpretation Code 0.9 - 1.6 ratio ADM SS ALP [Catalytic activity/Vol] 76 U/L Invalid Interpretation Code 38 - 126 U/L ADM SS ALT No additional P-5'-P [Catalytic activity/Vol] 17 U/L Invalid Interpretation Code 12 - 55 U/L ADM SS AST [Catalytic activity/Vol] 10 U/L Invalid Interpretation Code 8 - 34 U/L ADM SS Bilirubin [Mass/Vol] 0.50 mg/dL Invalid Interpretation Code 0.20 - 1.20 mg/dL ADM SS Globulin 3.6 G/dL Invalid Interpretation Code 1.5 - 3.8 G/dL ADM SS Protein [Mass/Vol] 6.2 G/dL Invalid Interpretation Code 5.7 - 8.2 G/dL ADM SS Magnesium [Mass/Vol] 2.0 mg/dL Invalid Interpretation Code 1.6 - 2.4 mg/dL ADM SS Phosphate [Mass/Vol] 4.0 mg/dL Invalid Interpretation Code 2.4 - 5.1 mg/dL ADM SS LABORATORYOrdered By: Camron Anders on 08-05-2022 Base excess Calc (BldV) [Moles/Vol] 0.6 mmol/L Invalid Interpretation Code -3.0 - 3.0 mmol/L Auto Chem SS CO2 (BldV) [Partial pressure] 71.7 mm[Hg] Invalid Interpretation Code 41.0 - 51.0 mm Hg Auto Chem SS CO2 Calc (BldV) [Moles/Vol] 32.4 mmol/L Invalid Interpretation Code 22.0 - 32.0 mmol/L Auto Chem SS HCO3 (Bld) [Moles/Vol] 30.2 mmol/L Invalid Interpretation Code 21.0 - 30.0 mmol/L Auto Chem SS Lactate [Moles/Vol] 0.9 mmol/L Invalid Interpretation Code 0.2 - 2.0 mmol/L Auto Chem SS Oxygen (BldV) [Partial pressure] 48.1 mm[Hg] Invalid Interpretation Code 35.0 - 40.0 mm Hg Auto Chem SS pH (BldV) 7.242 [pH] Invalid Interpretation Code 7.380 - 7.460 Auto Chem SS LABORATORYOrdered By: Gertrude Velarde on 08-05-2022 Blood Glucose Testing Reason Routine (08/05/22 8:00 AM) [facility] Glucose [Mass/Vol] 128 mg/dL Invalid Interpretation Code 70 - 110 mg/dL [facility] Blood Glucose Testing Reason Routine (08/05/22 4:30 AM) [facility] Glucose [Mass/Vol] 130 mg/dL Invalid Interpretation Code 70 - 110 mg/dL [facility] LABORATORYOrdered By: Thee Corey on 08-05-2022 Lactate [Moles/Vol] 0.9 mmol/L Invalid Interpretation Code 0.2 - 2.0 mmol/L Auto Chem SS LABORATORYOrdered By: [employer] SYSTEM on 08-04-2022 Albumin BCP dye [Mass/Vol] 2.7 G/dL Invalid Interpretation Code 3.2 - 4.8 G/dL ADM SS Albumin/Globulin [Mass ratio] 0.8 {ratio} Invalid Interpretation Code 0.9 - 1.6 ratio ADM SS ALP [Catalytic activity/Vol] 71 U/L Invalid Interpretation Code 38 - 126 U/L ADM SS ALT No additional P-5'-P [Catalytic activity/Vol] 22 U/L Invalid Interpretation Code 12 - 55 U/L ADM SS AST [Catalytic activity/Vol] 12 U/L Invalid Interpretation Code 8 - 34 U/L ADM SS Bili Indirect 0.2 mg/dL Invalid Interpretation Code 0.1 - 10.0 mg/dL Chemistry S Bilirubin [Mass/Vol] 0.50 mg/dL Invalid Interpretation Code 0.20 - 1.20 mg/dL ADM SS Bilirubin.conjugated [Mass/Vol] 0.3 mg/dL Invalid Interpretation Code 0.0 - 0.4 mg/dL ADM SS Globulin 3.4 G/dL Invalid Interpretation Code 1.5 - 3.8 G/dL ADM SS Protein [Mass/Vol] 6.1 G/dL Invalid Interpretation Code 5.7 - 8.2 G/dL AH ADM SS LABORATORYOrdered By: Domonique Luna on 08-04-2022 Base excess Calc (BldV) [Moles/Vol] 0.4 mmol/L Invalid Interpretation Code -3.0 - 3.0 mmol/L AH Auto Chem SS CO2 (BldV) [Partial pressure] 66.1 mm[Hg] Invalid Interpretation Code 41.0 - 51.0 mm Hg AH Auto Chem SS CO2 Calc (BldV) [Moles/Vol] 31.3 mmol/L Invalid Interpretation Code 22.0 - 32.0 mmol/L AH Auto Chem SS HCO3 (Bld) [Moles/Vol] 29.3 mmol/L Invalid Interpretation Code 21.0 - 30.0 mmol/L Auto Chem SS Lactate [Moles/Vol] 1.4 mmol/L Invalid Interpretation Code 0.2 - 2.0 mmol/L Auto Chem SS Oxygen (BldV) [Partial pressure] 41.7 mm[Hg] Invalid Interpretation Code 35.0 - 40.0 mm Hg Auto Chem SS pH (BldV) 7.264 [pH] Invalid Interpretation Code 7.380 - 7.460 Auto Chem SS LABORATORYOrdered By: Alexandra Lopez on 08-04-2022 Blood Glucose Testing Reason Routine (08/04/22 11:33 AM) [facility] Glucose [Mass/Vol] 167 mg/dL Invalid Interpretation Code 70 - 110 mg/dL [facility] No Panel Informationon 08-03 Culture Urine No growth at 48 hours. [facility] LABORATORYOrdered By: JOSE SHELIA CONTRIBUTOR_SYSTEM on 08-02-2022 Acetylcholine R/B Ql Negative Invalid Interpretation Code Negative [facility] Comment on above: Result Comment: Anti -acetylcholine receptor binding antibody test is used as an aid in diagnosis of myasthenia gravis. A negative result cannot exclude myasthenia gravis. Clinical correlation is required. Performed By: [facility] [place] [address] Pharmaceutical Sales Representative: Gualberto Gordon III, M.D. CLIA#: [id number] Acetylcholine Rec/Bind nmol/L Invalid Interpretation Code <0.21nmol/L [facility] Comment on above: Result Comment: Perf ormed By: [facility] Mark Forged [facility] [place] [address] Pharmaceutical Sales Representative: Gualberto Gordon III, M.D. CLIA#: [id number] LABORATORYOrdered By: Avis Smith on 08-02-2022 Fibrinogen Coag (PPP) [Mass/Vol] mg/dL Invalid Interpretation Code 250 - 560 mg/dL Auto Coag SS INR Coag (PPP) [Relative time] 1.2 {INR} Invalid Interpretation Code AH Auto Coag SS PT Coag (PPP) [Time] 13.8 s Invalid Interpretation Code 9.0 - 14.8 seconds AH Auto Coag SS LABORATORYOrdered By: Sue Rojas on 08-02-2022 Appearance (U) Clear (08/02/22 9:04 AM) Invalid Interpretation Code Clear AH Auto Urine SS Bacteria LM.HPF (Urine sed) [#/Area] Trace /HPF Invalid Interpretation Code Negative/HPF AH Auto Urine SS Bilirubin Ql (U) Negative (08/02/22 9:04 AM) Invalid Interpretation Code Neg-Trace AH Auto Urine SS Color (U) DARK YELLOW Invalid Interpretation Code AH Auto Urine SS Glucose Test strip (U) [Mass/Vol] Negative Invalid Interpretation Code Negativemg/d L AH Auto Urine SS Hemoglobin Auto test strip (U) [Mass/Vol] Small *ABN* (08/02/22 9:04 AM) Invalid Interpretation Code Neg-Trace AH Auto Urine SS Ketones Ql (U) Negative Invalid Interpretation Code Neg-Tracemg/ dL AH Auto Urine SS UA Leuk Est Trace *NA* (08/02/22 9:04 AM) Invalid Interpretation Code Negative AH Auto Urine SS UA Mucous 2+ /HPF Invalid Interpretation Code AH Auto Urine SS UA Nitrite Negative (08/02/22 9:04 AM) Invalid Interpretation Code Negative AH Auto Urine SS UA pH 6.0 (08/02/22 9:04 AM) Invalid Interpretation Code 5.0 - 8.0 AH Auto Urine SS UA Protein 300 mg/dL Invalid Interpretation Code Negativemg/d L AH Auto Urine SS UA RBC 0-2 /HPF Invalid Interpretation Code 0-2/HPF AH Auto Urine SS UA Spec Grav >=1.030 *ABN* (08/02/22 9:04 AM) Invalid Interpretation Code 1.006-1.029 AH Auto Urine SS UA Specimen Type Void (08/02/22 9:04 AM) Invalid Interpretation Code AH Auto Urine SS UA Squam Epithelial 3-5 /HPF Invalid Interpretation Code 0-20/HPF AH Auto Urine SS UA Urobilinogen 1.0 E.U./dL Invalid Interpretation Code 0.2-1.0E.U./ dL AH Auto Urine SS WBC LM.HPF (Urine sed) [#/Area] 10-20 /HPF Invalid Interpretation Code 0-5/HPF AH Auto Urine SS LABORATORYOrdered By: Cristino De La Rosa on 08-02-2022 M. pneumoniae IgG IA Ql (S) Positive *NA* (08/02/22 3:49 AM) Invalid Interpretation Code AH Auto Viro/Sero SS LABORATORYOrdered By: Rosalba Damon on 08-02-2022 M. pneumoniae IgM IA Ql (S) Negative (08/02/22 3:49 AM) Invalid Interpretation Code AH Man Viro/Sero SS Laboratory - Microbiology an d Antimicrobial susceptibilityOrdered By: [facility] on 08-02-2022 Bacteria identified Cx Nom (Bld) Culture has been received in lab and is no growth to date. Culture will be held for four weeks. [facility] No Panel Informationon 08-02 Legionella Urine Ag Presumptive negative for L. pneumophila serogroup 1 antigen in urine, suggesting no recent or current infection. Legionnaire's disease cannot be ruled out since other serogroups and species may also cause disease. [facility] Streptococcus Pneumoniae Urine Antig Presumptive negative for pneumococcal pneumonia, suggesting no current or recent pneumococcal infection. Infection due to Strep pneumoniae cannot be ruled out since the antigen present in the sample may be below the detection limit of the test. [facility] Comment on above: This test has not be en evaluated on patients taking antibiotics for greater than 24 hours or on patients who have recently completed an antibiotic regimen. The accuracy of this test has not been proven in young children. LABORATORYOrdered By: Klarissa malone on 08-01-2022 ACINETOBACTER CALCOACETICUS-BAUMANNI I COMPLEX DNA:PRTHR:PT:BLD.POS GROWTH:ORD:NON-PROBE.A MP.TAR Not Detected *NA* (08/01/22 10:38 PM) Invalid Interpretation Code Not Detected AH Auto Microbiology GL SS BACTERIAL METHICILLIN RESISTANCE MECA+MECC GENES+SCCMEC+ORFX JUNCTION:PRTHR:PT:ISOL ATE/SPECIMEN:ORD:MOLGE N Not Applicable *NA* (08/01/22 10:38 PM) Invalid Interpretation Code Not Detected AH Auto Microbiology GL SS BACTEROIDES FRAGILIS DNA:PRTHR:PT:BLD.POS GROWTH:ORD:NON-PROBE.A MP.TAR Not Detected *NA* (08/01/22 10:38 PM) Invalid Interpretation Code Not Detected AH Auto Microbiology GL SS BCID Comment See Comment (08/01/22 10:38 PM) Invalid Interpretation Code AH Auto Microbiology GL SS C. albicans DNA GILMAR+non-probe Ql (Pos bld culture) Not Detected *NA* (08/01/22 10:38 PM) Invalid Interpretation Code Not Detected AH Auto Microbiology GL SS C. glabrata DNA GILMAR+non-probe Ql (Pos bld culture) Not Detected *NA* (08/01/22 10:38 PM) Invalid Interpretation Code Not Detected AH Auto Microbiology GL SS C. krusei DNA GILMAR+non-probe Ql (Pos bld culture) Not Detected *NA* (08/01/22 10:38 PM) Invalid Interpretation Code Not Detected AH Auto Microbiology GL SS C. parapsilosis DNA GILMAR+non-probe Ql (Pos bld culture) Not Detected *NA* (08/01/22 10:38 PM) Invalid Interpretation Code Not Detected AH Auto Microbiology GL SS C. tropicalis DNA GILMAR+non-probe Ql (Pos bld culture) Not Detected *NA* (08/01/22 10:38 PM) Invalid Interpretation Code Not Detected AH Auto Microbiology GL SS KRUNAL AURIS DNA:PRTHR:PT:BLD.POS GROWTH:ORD:NON-PROBE.A MP.TAR Not Detected *NA* (08/01/22 10:38 PM) Invalid Interpretation Code Not Detected AH Auto Microbiology GL SS Carbapenem resistance erwin OXA-48-like gene Molgen Ql (Islt/Spec) Not Applicable *NA* (08/01/22 10:38 PM) Invalid Interpretation Code Not Detected AH Auto Microbiology GL SS Carbapenem resistance blaIMP gene Molgen Ql (Islt/Spec) Not Applicable *NA* (08/01/22 10:38 PM) Invalid Interpretation Code Not Detected AH Auto Microbiology GL SS Carbapenem resistance blaKPC gene Molgen Ql (Islt/Spec) Not Applicable *NA* (08/01/22 10:38 PM) Invalid Interpretation Code Not Detected AH Auto Microbiology GL SS Carbapenem resistance blaNDM gene Molgen Ql (Islt/Spec) Not Applicable *NA* (08/01/22 10:38 PM) Invalid Interpretation Code Not Detected AH Auto Microbiology GL SS Carbapenem resistance blaVIM gene Molgen Ql (Islt/Spec) Not Applicable *NA* (08/01/22 10:38 PM) Invalid Interpretation Code Not Detected AH Auto Microbiology GL SS Cephalosporin resistance erwin(CTX-M) gene Molgen Ql (Islt/Spec) Not Applicable *NA* (08/01/22 10:38 PM) Invalid Interpretation Code Not Detected AH Auto Microbiology GL SS Colistin resistance mcr-1 gene Molgen Ql (Islt/Spec) Not Applicable *NA* (08/01/22 10:38 PM) Invalid Interpretation Code Not Detected AH Auto Microbiology GL SS CRYPTOCOCCUS GATTII+NEOFORMANS DNA:PRTHR:PT:BLD.POS GROWTH:ORD:NON-PROBE.A MP.TAR Not Detected *NA* (08/01/22 10:38 PM) Invalid Interpretation Code Not Detected AH Auto Microbiology GL SS E. cloacae complex DNA GILMAR+non-probe Ql (Pos bld culture) Not Detected *NA* (08/01/22 10:38 PM) Invalid Interpretation Code Not Detected AH Auto Microbiology GL SS E. coli DNA GILMAR+non-probe Ql (Pos bld culture) Not Detected *NA* (08/01/22 10:38 PM) Invalid Interpretation Code Not Detected [facility] Auto Microbiology GL SS ENTEROBACTERALES DNA:PRTHR:PT:BLD.POS GROWTH:ORD:NON-PROBE.A MP.TAR Not Detected *NA* (08/01/22 10:38 PM) Invalid Interpretation Code Not Detected [facility] Auto Microbiology GL SS ENTEROCOCCUS FAECALIS DNA:PRTHR:PT:BLD.POS GROWTH:ORD:NON-PROBE.A MP.TAR Not Detected *NA* (08/01/22 10:38 PM) Invalid Interpretation Code Not Detected [facility] Auto Microbiology GL SS ENTEROCOCCUS FAECIUM DNA:PRTHR:PT:BLD.POS GROWTH:ORD:NON-PROBE.A MP.TAR Not Detected *NA* (08/01/22 10:38 PM) Invalid Interpretation Code Not Detected [facility] Auto Microbiology GL SS H. influenzae DNA GILMAR+non-probe Ql (Pos bld culture) Not Detected *NA* (08/01/22 10:38 PM) Invalid Interpretation Code Not Detected [facility] Auto Microbiology GL SS K. oxytoca DNA GILMAR+non-probe Ql (Pos bld culture) Not Detected *NA* (08/01/22 10:38 PM) Invalid Interpretation Code Not Detected [facility] Auto Microbiology GL SS KLEBSIELLA AEROGENES DNA:PRTHR:PT:BLD.POS GROWTH:ORD:NON-PROBE.A MP.TAR Not Detected *NA* (08/01/22 10:38 PM) Invalid Interpretation Code Not Detected [facility] Auto Microbiology GL SS KLEBSIELLA PNEUMONIAE+KLEBSIELLA VARIICOLA+KLEBSIELLA QUASIPNEUMONIAE DNA:PRTHR:PT:BLD.POS GROWTH:ORD:NON-PROBE.A MP.TAR Not Detected *NA* (08/01/22 10:38 PM) Invalid Interpretation Code Not Detected [facility] Auto Microbiology GL SS L. monocytogenes DNA GILMAR+non-probe Ql (Pos bld culture) Not Detected *NA* (08/01/22 10:38 PM) Invalid Interpretation Code Not Detected [facility] Auto Microbiology GL SS Methicillin resistance mecA+mecC genes Molgen Ql (Islt/Spec) Not Applicable *NA* (08/01/22 10:38 PM) Invalid Interpretation Code Not Detected [facility] Microbiology GL SS N. meningitidis DNA GILMAR+non-probe Ql (Pos bld culture) Not Detected *NA* (08/01/22 10:38 PM) Invalid Interpretation Code Not Detected [facility] Microbiology GL SS P. aeruginosa DNA GILMAR+non-probe Ql (Pos bld culture) Not Detected *NA* (08/01/22 10:38 PM) Invalid Interpretation Code Not Detected [facility] Auto Microbiology GL SS Proteus sp DNA GILMAR+non-probe Ql (Pos bld culture) Not Detected *NA* (08/01/22 10:38 PM) Invalid Interpretation Code Not Detected [facility] Auto Microbiology GL SS S. agalactiae DNA GILMAR+non-probe Ql (Pos bld culture) Not Detected *NA* (08/01/22 10:38 PM) Invalid Interpretation Code Not Detected [facility] Microbiology GL SS S. aureus DNA GILMAR+non-probe Ql (Pos bld culture) Not Detected *NA* (08/01/22 10:38 PM) Invalid Interpretation Code Not Detected [facility] Auto Microbiology GL SS S. marcescens DNA GILMAR+non-probe Ql (Pos bld culture) Not Detected *NA* (08/01/22 10:38 PM) Invalid Interpretation Code Not Detected [facility] Auto Microbiology GL SS S. pneumoniae DNA GILMAR+non-probe Ql (Pos bld culture) Not Detected *NA* (08/01/22 10:38 PM) Invalid Interpretation Code Not Detected [facility] Auto Microbiology GL SS S. pyogenes DNA GILMAR+non-probe Ql (Pos bld culture) Not Detected *NA* (08/01/22 10:38 PM) Invalid Interpretation Code Not Detected [facility] Auto Microbiology GL SS SALMONELLA SP DNA:PRTHR:PT:BLD.POS GROWTH:ORD:NON-PROBE.A MP.TAR Not Detected *NA* (08/01/22 10:38 PM) Invalid Interpretation Code Not Detected [facility] Auto Microbiology GL SS STAPHYLOCOCCUS EPIDERMIDIS DNA:PRTHR:PT:BLD.POS GROWTH:ORD:NON-PROBE.A MP.TAR Not Detected *NA* (08/01/22 10:38 PM) Invalid Interpretation Code Not Detected [facility] Auto Microbiology GL SS STAPHYLOCOCCUS LUGDUNENSIS DNA:PRTHR:PT:BLD.POS GROWTH:ORD:NON-PROBE.A MP.TAR Not Detected *NA* (08/01/22 10:38 PM) Invalid Interpretation Code Not Detected [facility] Auto Microbiology GL SS Staphylococcus sp DNA GILMAR+non-probe Ql (Pos bld culture) Detected *ABN* (08/01/22 10:38 PM) Invalid Interpretation Code Not Detected [facility] Auto Microbiology GL SS STENOTROPHOMONAS MALTOPHILIA DNA:PRTHR:PT:BLD.POS GROWTH:ORD:NON-PROBE.A MP.TAR Not Detected *NA* (08/01/22 10:38 PM) Invalid Interpretation Code Not Detected [facility] Auto Microbiology GL SS Streptococcus sp DNA GILMAR+non-probe Ql (Pos bld culture) Not Detected *NA* (08/01/22 10:38 PM) Invalid Interpretation Code Not Detected [facility] Auto Microbiology GL SS Vancomycin resistance Shanna + vanB genes Molgen Ql (Islt/Spec) Not Applicable *NA* (08/01/22 10:38 PM) Invalid Interpretation Code Not Detected [facility] Auto Microbiology GL SS LABORATORYOrdered By: SYSTEM SYSTEM on 08-01-2022 Albumin BCP dye [Mass/Vol] 3.2 G/dL Invalid Interpretation Code 3.2 - 4.8 G/dL AH ADM SS Albumin/Globulin [Mass ratio] 0.9 {ratio} Invalid Interpretation Code 0.9 - 1.6 ratio AH ADM SS ALP [Catalytic activity/Vol] 77 U/L Invalid Interpretation Code 38 - 126 U/L AH ADM SS ALT No additional P-5'-P [Catalytic activity/Vol] 19 U/L Invalid Interpretation Code 12 - 55 U/L AH ADM SS AST [Catalytic activity/Vol] 16 U/L Invalid Interpretation Code 8 - 34 U/L AH ADM SS Bilirubin [Mass/Vol] 0.90 mg/dL Invalid Interpretation Code 0.20 - 1.20 mg/dL AH ADM SS Globulin 3.7 G/dL Invalid Interpretation Code 1.5 - 3.8 G/dL AH ADM SS Protein [Mass/Vol] 6.9 G/dL Invalid Interpretation Code 5.7 - 8.2 G/dL AH ADM SS Troponin I.cardiac DL <= 0.01 ng/mL [Mass/Vol] 31.90 ng/L Invalid Interpretation Code 0.00 - 54.00 ng/L AH ADM SS Natriuretic peptide.B prohormone N-Terminal [Mass/Vol] 1681 pg/mL Invalid Interpretation Code 0 - 125 pg/mL AO ADM SS Troponin I.cardiac DL <= 0.01 ng/mL [Mass/Vol] 44.0 ng/L Invalid Interpretation Code 0.0 - 76.2 ng/L AO ADM SS Calcium [Mass/Vol] 8.8 mg/dL Invalid Interpretation Code 8.4 - 10.2 mg/dL AO ADM SS Chloride [Moles/Vol] 101 mmol/L Invalid Interpretation Code 98 - 107 mmol/L AO ADM SS CO2 [Moles/Vol] 26 mmol/L Invalid Interpretation Code 22 - 29 mmol/L AO ADM SS Creatinine [Mass/Vol] 1.52 mg/dL Invalid Interpretation Code 0.70 - 1.30 mg/dL AO ADM SS Electrolyte Balance 11.0 mEq/L Invalid Interpretation Code 4.0 - 15.0 mEq/L AO ADM SS GFR/1.73 sq M.predicted among blacks MDRD (S/P/Bld) [Vol rate/Area] 61 ml/min/1.73sqm Invalid Interpretation Code AO Chemistry S GFR/1.73 sq M.predicted among non-blacks MDRD (S/P/Bld) [Vol rate/Area] 50 ml/min/1.73sqm Invalid Interpretation Code AO Chemistry S Glucose [Mass/Vol] 107 mg/dL Invalid Interpretation Code 70 - 105 mg/dL AO ADM SS Potassium [Moles/Vol] 4.5 mmol/L Invalid Interpretation Code 3.5 - 5.1 mmol/L AO ADM SS Sodium [Moles/Vol] 138 mmol/L Invalid Interpretation Code 136 - 145 mmol/L AO ADM SS Urea nitrogen [Mass/Vol] 20 mg/dL Invalid Interpretation Code 7 - 18 mg/dL AO ADM SS Urea nitrogen/Creatinine [Mass ratio] 13 ratio Invalid Interpretation Code 7 - 27 ratio AO ADM SS LABORATORYOrdered By: Sally Davis on 08-01-2022 INR Coag (PPP) [Relative time] 1.3 {INR} Invalid Interpretation Code AH Auto Coag SS PT Coag (PPP) [Time] 15.7 s Invalid Interpretation Code 9.0 - 14.8 seconds AH Auto Coag SS LABORATORYOrdered By: Kaitlynn Damian on 08-01-2022 Basophil, Absolute 0.1 103/mcL Invalid Interpretation Code 0.0 - 0.2 10^3/mcL AO Workflow SS Basophils/100 WBC (Bld) 0.7 % Invalid Interpretation Code 0.0 - 2.5 % AO Workflow SS Eosinophil, Absolute 0.3 103/mcL Invalid Interpretation Code 0.0 - 0.4 10^3/mcL AO Workflow SS Eosinophils/100 WBC (Bld) 2.2 % Invalid Interpretation Code 0.0 - 7.0 % AO Workflow SS Erythrocyte distribution width (RBC) [Ratio] 15.2 % Invalid Interpretation Code 11.5 - 14.5 % AO Workflow SS Hematocrit (Bld) [Volume fraction] 49.3 % Invalid Interpretation Code 42.0 - 52.0 % AO Workflow SS Hemoglobin (Bld) [Mass/Vol] 16.2 G/dL Invalid Interpretation Code 14.0 - 18.0 G/dL AO Workflow SS Lymphocyte, Absolute 2.1 103/mcL Invalid Interpretation Code 0.8 - 3.9 10^3/mcL AO Workflow SS Lymphocytes/100 WBC (Bld) 15.1 % Invalid Interpretation Code 10.0 - 50.0 % AO Workflow SS MCH (RBC) [Entitic mass] 32.3 pg Invalid Interpretation Code 27.0 - 31.2 pg AO Workflow SS MCHC 32.9 G/dL Invalid Interpretation Code 31.8 - 35.4 G/dL AO Workflow SS MCV (RBC) [Entitic vol] 98.2 fL Invalid Interpretation Code 80.0 - 94.0 fL AO Workflow SS Monocyte distribution width Auto (Bld) [Entitic vol] 21.03 Invalid Interpretation Code 0.00 - 20.00 AO Workflow SS Comment on above: Result Comment: For adults in ED, MDW>20.0 may be associated with a higher risk of sepsis during the first 12hrs of hospital admission Monocyte, Absolute 1.2 103/mcL Invalid Interpretation Code 0.2 - 1.0 10^3/mcL AO Workflow SS Monocytes/100 WBC (Bld) 8.9 % Invalid Interpretation Code 1.7 - 13.0 % AO Workflow SS Neutrophil, Absolute 10.1 103/mcL Invalid Interpretation Code 2.9 - 6.2 10^3/mcL AO Workflow SS Neutrophils/100 WBC (Bld) 73.1 % Invalid Interpretation Code 37.0 - 80.0 % AO Workflow SS Platelet mean volume (Bld) [Entitic vol] 7.8 fL Invalid Interpretation Code 7.4 - 10.4 fL AO Workflow SS Platelets (Bld) [#/Vol] 144 103/mcL Invalid Interpretation Code 130 - 400 10^3/mcL AO Workflow SS RBC (Bld) [#/Vol] 5.02 106/mcL Invalid Interpretation Code 4.04 - 6.13 10^6/mcL AO Workflow SS WBC (Bld) [#/Vol] 13.8 103/mcL Invalid Interpretation Code 4.6 - 10.8 10^3/mcL AO Workflow SS LABORATORYOrdered By: Ta Starkey on 08-01-2022 Fibrin D-dimer DDU (PPP) [Mass/Vol] 909 ng/mL D-DU Invalid Interpretation Code 0 - 230 ng/mL D-DU AO HemoHub SS No Panel Informationon 08-01 GSAER Gram Positive Cocci in clusters [facility] Microscopic examination of blood, culture Staphylococcus coagulase negative Isolated from aerobe bottle only. 1 of 2 sets positive. Organism is a potential contaminant. Clinical Significance undetermined. Please contact Microbiology if further work-up is required. [facility] Microscopic examination of blood, culture Blood Culture: No Growth at 5 days. [facility] LABORATORYOrdered By: SYSTEM SYSTEM on 06-09-2022 Albumin BCP dye [Mass/Vol] 3.0 G/dL Invalid Interpretation Code 3.2 - 4.8 G/dL ADM SS Albumin/Globulin [Mass ratio] 0.9 {ratio} Invalid Interpretation Code 0.9 - 1.6 ratio ADM SS ALP [Catalytic activity/Vol] 81 U/L Invalid Interpretation Code 38 - 126 U/L ADM SS ALT No additional P-5'-P [Catalytic activity/Vol] 26 U/L Invalid Interpretation Code 12 - 55 U/L ADM SS AST [Catalytic activity/Vol] 17 U/L Invalid Interpretation Code 8 - 34 U/L AH ADM SS Basophils (Bld) [#/Vol] 0.1 103/mcL Invalid Interpretation Code 0.0 - 0.3 10^3/mcL AH Workflow SS Basophils/100 WBC (Bld) 1.0 % Invalid Interpretation Code 0.0 - 2.5 % Workflow SS Bilirubin [Mass/Vol] 0.40 mg/dL Invalid Interpretation Code 0.20 - 1.20 mg/dL ADM SS Calcium [Mass/Vol] 8.8 mg/dL Invalid Interpretation Code 8.7 - 10.4 mg/dL ADM SS Chloride [Moles/Vol] 105 mmol/L Invalid Interpretation Code 98 - 110 mEq/L ADM SS CO2 [Moles/Vol] 33 mmol/L Invalid Interpretation Code 22 - 32 mEq/L ADM SS Cortisol [Mass/Vol] 15.3 ug/dL Invalid Interpretation Code ADM SS Creatinine [Mass/Vol] 1.11 mg/dL Invalid Interpretation Code 0.60 - 1.40 mg/dL ADM SS Electrolyte Balance 3.0 mEq/L Invalid Interpretation Code 4.0 - 15.0 mEq/L ADM SS Eosinophils (Bld) [#/Vol] 0.7 103/mcL Invalid Interpretation Code 0.0 - 0.7 10^3/mcL AH Workflow SS Eosinophils/100 WBC (Bld) 8.2 % Invalid Interpretation Code 0.0 - 6.0 % AH Workflow SS Erythrocyte distribution width (RBC) [Ratio] 14.0 % Invalid Interpretation Code 11.5 - 15.5 % Workflow SS Free T3 [Mass/Vol] 3.73 pg/mL Invalid Interpretation Code 2.30 - 4.20 pg/mL ADM SS Free T4 [Mass/Vol] 1.00 ng/dL Invalid Interpretation Code 0.89 - 1.76 ng/dL AH ADM SS GFR/1.73 sq M.predicted among blacks MDRD (S/P/Bld) [Vol rate/Area] ml/min/1.73sqm Invalid Interpretation Code AH ADM SS GFR/1.73 sq M.predicted among non-blacks MDRD (S/P/Bld) [Vol rate/Area] ml/min/1.73sqm Invalid Interpretation Code ADM SS Globulin 3.5 G/dL Invalid Interpretation Code 1.5 - 3.8 G/dL ADM SS Glucose [Mass/Vol] 120 mg/dL Invalid Interpretation Code 70 - 110 mg/dL ADM SS Hematocrit (Bld) [Volume fraction] 49.5 % Invalid Interpretation Code 40.0 - 52.0 % Workflow SS Hemoglobin (Bld) [Mass/Vol] 16.5 G/dL Invalid Interpretation Code 13.0 - 17.5 G/dL Workflow SS LDH Lactate to pyruvate reaction [Catalytic activity/Vol] 350 1 Invalid Interpretation Code 120 - 246 U/L ADM SS Lymphocytes (Bld) [#/Vol] 1.7 103/mcL Invalid Interpretation Code 0.9 - 4.3 10^3/mcL Workflow SS Lymphocytes/100 WBC (Bld) 20.5 % Invalid Interpretation Code 20.0 - 40.0 % Workflow SS MCH (RBC) [Entitic mass] 32.7 pg Invalid Interpretation Code 27.0 - 33.0 pg Workflow SS MCHC 33.3 G/dL Invalid Interpretation Code 32.0 - 36.0 G/dL Workflow SS MCV (RBC) [Entitic vol] 98.4 fL Invalid Interpretation Code 81.0 - 100.0 fL Workflow SS Monocytes (Bld) [#/Vol] 0.6 103/mcL Invalid Interpretation Code 0.1 - 1.4 10^3/mcL Workflow SS Monocytes/100 WBC (Bld) 7.6 % Invalid Interpretation Code 2.0 - 13.0 % Workflow SS Neutrophils (Bld) [#/Vol] 5.2 103/mcL Invalid Interpretation Code 2.3 - 8.1 10^3/mcL Workflow SS Neutrophils/100 WBC (Bld) 62.7 % Invalid Interpretation Code 50.0 - 75.0 % Workflow SS Platelet mean volume (Bld) [Entitic vol] 7.9 fL Invalid Interpretation Code 6.4 - 10.5 fL Workflow SS Platelets (Bld) [#/Vol] 148 103/mcL Invalid Interpretation Code 150 - 450 10^3/mcL Workflow SS Potassium [Moles/Vol] 4.6 mmol/L Invalid Interpretation Code 3.5 - 5.0 mEq/L ADM SS Protein [Mass/Vol] 6.5 G/dL Invalid Interpretation Code 5.7 - 8.2 G/dL ADM SS RBC (Bld) [#/Vol] 5.03 106/mcL Invalid Interpretation Code 4.50 - 6.00 10^6/mcL Workflow SS Sodium [Moles/Vol] 141 mmol/L Invalid Interpretation Code 136 - 145 mEq/L ADM SS TSH Qn 1.831 mIU/mL Invalid Interpretation Code 0.550 - 4.780 mIU/mL ADM SS Urea nitrogen [Mass/Vol] 13.0 mg/dL Invalid Interpretation Code 8.0 - 22.0 mg/dL ADM SS Urea nitrogen/Creatinine [Mass ratio] 11.7 ratio Invalid Interpretation Code 10.0 - 22.0 ratio ADM SS WBC (Bld) [#/Vol] 8.3 103/mcL Invalid Interpretation Code 4.5 - 10.8 10^3/mcL Workflow SS LABORATORYOrdered By: SYSTEM SYSTEM on 05-12-2022 Albumin BCP dye [Mass/Vol] 3.2 G/dL Invalid Interpretation Code 3.2 - 4.8 G/dL ADM SS Albumin/Globulin [Mass ratio] 1.0 {ratio} Invalid Interpretation Code 0.9 - 1.6 ratio ADM SS ALP [Catalytic activity/Vol] 83 U/L Invalid Interpretation Code 38 - 126 U/L ADM SS ALT No additional P-5'-P [Catalytic activity/Vol] 27 U/L Invalid Interpretation Code 12 - 55 U/L ADM SS AST [Catalytic activity/Vol] 19 U/L Invalid Interpretation Code 8 - 34 U/L ADM SS Basophils (Bld) [#/Vol] 0.0 103/mcL Invalid Interpretation Code 0.0 - 0.3 10^3/mcL Workflow SS Basophils/100 WBC (Bld) 0.6 % Invalid Interpretation Code 0.0 - 2.5 % Workflow SS Bilirubin [Mass/Vol] 0.40 mg/dL Invalid Interpretation Code 0.20 - 1.20 mg/dL ADM SS Calcium [Mass/Vol] 8.4 mg/dL Invalid Interpretation Code 8.7 - 10.4 mg/dL ADM SS Chloride [Moles/Vol] 107 mmol/L Invalid Interpretation Code 98 - 110 mEq/L ADM SS CO2 [Moles/Vol] 28 mmol/L Invalid Interpretation Code 22 - 32 mEq/L ADM SS Cortisol [Mass/Vol] 12.5 ug/dL Invalid Interpretation Code AH ADM SS Creatinine [Mass/Vol] 1.23 mg/dL Invalid Interpretation Code 0.60 - 1.40 mg/dL ADM SS Electrolyte Balance 5.0 mEq/L Invalid Interpretation Code 4.0 - 15.0 mEq/L ADM SS Eosinophils (Bld) [#/Vol] 0.5 103/mcL Invalid Interpretation Code 0.0 - 0.7 10^3/mcL AH Workflow SS Eosinophils/100 WBC (Bld) 6.0 % Invalid Interpretation Code 0.0 - 6.0 % Workflow SS Erythrocyte distribution width (RBC) [Ratio] 14.1 % Invalid Interpretation Code 11.5 - 15.5 % Workflow SS Free T3 [Mass/Vol] 3.43 pg/mL Invalid Interpretation Code 2.30 - 4.20 pg/mL ADM SS Free T4 [Mass/Vol] 1.13 ng/dL Invalid Interpretation Code 0.89 - 1.76 ng/dL ADM SS GFR/1.73 sq M.predicted among blacks MDRD (S/P/Bld) [Vol rate/Area] ml/min/1.73sqm Invalid Interpretation Code ADM SS GFR/1.73 sq M.predicted among non-blacks MDRD (S/P/Bld) [Vol rate/Area] ml/min/1.73sqm Invalid Interpretation Code ADM SS Globulin 3.3 G/dL Invalid Interpretation Code 1.5 - 3.8 G/dL ADM SS Glucose [Mass/Vol] 129 mg/dL Invalid Interpretation Code 70 - 110 mg/dL ADM SS Hematocrit (Bld) [Volume fraction] 50.6 % Invalid Interpretation Code 40.0 - 52.0 % Workflow SS Hemoglobin (Bld) [Mass/Vol] 16.5 G/dL Invalid Interpretation Code 13.0 - 17.5 G/dL Workflow SS LDH Lactate to pyruvate reaction [Catalytic activity/Vol] 253 1 Invalid Interpretation Code 120 - 246 U/L ADM SS Lymphocytes (Bld) [#/Vol] 1.5 103/mcL Invalid Interpretation Code 0.9 - 4.3 10^3/mcL Workflow SS Lymphocytes/100 WBC (Bld) 19.3 % Invalid Interpretation Code 20.0 - 40.0 % Workflow SS MCH (RBC) [Entitic mass] 32.5 pg Invalid Interpretation Code 27.0 - 33.0 pg AH Workflow SS MCHC 32.6 G/dL Invalid Interpretation Code 32.0 - 36.0 G/dL AH Workflow SS MCV (RBC) [Entitic vol] 99.7 fL Invalid Interpretation Code 81.0 - 100.0 fL AH Workflow SS Monocytes (Bld) [#/Vol] 0.4 103/mcL Invalid Interpretation Code 0.1 - 1.4 10^3/mcL AH Workflow SS Monocytes/100 WBC (Bld) 4.8 % Invalid Interpretation Code 2.0 - 13.0 % AH Workflow SS Neutrophils (Bld) [#/Vol] 5.5 103/mcL Invalid Interpretation Code 2.3 - 8.1 10^3/mcL AH Workflow SS Neutrophils/100 WBC (Bld) 69.3 % Invalid Interpretation Code 50.0 - 75.0 % AH Workflow SS Platelet mean volume (Bld) [Entitic vol] 7.4 fL Invalid Interpretation Code 6.4 - 10.5 fL AH Workflow SS Platelets (Bld) [#/Vol] 146 103/mcL Invalid Interpretation Code 150 - 450 10^3/mcL AH Workflow SS Potassium [Moles/Vol] 4.2 mmol/L Invalid Interpretation Code 3.5 - 5.0 mEq/L AH ADM SS Protein [Mass/Vol] 6.5 G/dL Invalid Interpretation Code 5.7 - 8.2 G/dL AH ADM SS RBC (Bld) [#/Vol] 5.07 106/mcL Invalid Interpretation Code 4.50 - 6.00 10^6/mcL AH Workflow SS Sodium [Moles/Vol] 140 mmol/L Invalid Interpretation Code 136 - 145 mEq/L ADM SS TSH Qn 1.845 mIU/mL Invalid Interpretation Code 0.550 - 4.780 mIU/mL AH ADM SS Urea nitrogen [Mass/Vol] 11.0 mg/dL Invalid Interpretation Code 8.0 - 22.0 mg/dL AH ADM SS Urea nitrogen/Creatinine [Mass ratio] 8.9 ratio Invalid Interpretation Code 10.0 - 22.0 ratio AH ADM SS WBC (Bld) [#/Vol] 8.0 103/mcL Invalid Interpretation Code 4.5 - 10.8 10^3/mcL AH Workflow SS LABORATORYOrdered By: SYSTEM SYSTEM on 03-17-2022 Albumin BCP dye [Mass/Vol] 3.2 G/dL Invalid Interpretation Code 3.2 - 4.8 G/dL ADM SS Albumin/Globulin [Mass ratio] 0.9 {ratio} Invalid Interpretation Code 0.9 - 1.6 ratio ADM SS ALP [Catalytic activity/Vol] 88 U/L Invalid Interpretation Code 38 - 126 U/L ADM SS ALT No additional P-5'-P [Catalytic activity/Vol] 31 U/L Invalid Interpretation Code 12 - 55 U/L ADM SS AST [Catalytic activity/Vol] 25 U/L Invalid Interpretation Code 8 - 34 U/L ADM SS Basophils (Bld) [#/Vol] 0.1 103/mcL Invalid Interpretation Code 0.0 - 0.3 10^3/mcL Workflow SS Basophils/100 WBC (Bld) 0.9 % Invalid Interpretation Code 0.0 - 2.5 % Workflow SS Bili Indirect 0.2 mg/dL Invalid Interpretation Code 0.1 - 10.0 mg/dL Chemistry S Bilirubin [Mass/Vol] 0.40 mg/dL Invalid Interpretation Code 0.20 - 1.20 mg/dL ADM SS Bilirubin.conjugated [Mass/Vol] 0.2 mg/dL Invalid Interpretation Code 0.0 - 0.4 mg/dL ADM SS Calcium [Mass/Vol] 9.0 mg/dL Invalid Interpretation Code 8.7 - 10.4 mg/dL ADM SS Chloride [Moles/Vol] 105 mmol/L Invalid Interpretation Code 98 - 110 mEq/L ADM SS CO2 [Moles/Vol] 29 mmol/L Invalid Interpretation Code 22 - 32 mEq/L ADM SS Cortisol [Mass/Vol] 14.9 ug/dL Invalid Interpretation Code ADM SS Creatinine [Mass/Vol] 1.18 mg/dL Invalid Interpretation Code 0.60 - 1.40 mg/dL ADM SS Electrolyte Balance 6.0 mEq/L Invalid Interpretation Code 4.0 - 15.0 mEq/L ADM SS Eosinophils (Bld) [#/Vol] 0.6 103/mcL Invalid Interpretation Code 0.0 - 0.7 10^3/mcL Workflow SS Eosinophils/100 WBC (Bld) 7.5 % Invalid Interpretation Code 0.0 - 6.0 % Workflow SS Erythrocyte distribution width (RBC) [Ratio] 14.1 % Invalid Interpretation Code 11.5 - 15.5 % Workflow SS Free T3 [Mass/Vol] 3.55 pg/mL Invalid Interpretation Code 2.30 - 4.20 pg/mL ADM SS Free T4 [Mass/Vol] 1.05 ng/dL Invalid Interpretation Code 0.89 - 1.76 ng/dL AH ADM SS GFR/1.73 sq M.predicted among blacks MDRD (S/P/Bld) [Vol rate/Area] ml/min/1.73sqm Invalid Interpretation Code Chemistry S GFR/1.73 sq M.predicted among non-blacks MDRD (S/P/Bld) [Vol rate/Area] ml/min/1.73sqm Invalid Interpretation Code Chemistry S Globulin 3.6 G/dL Invalid Interpretation Code 1.5 - 3.8 G/dL ADM SS Glucose [Mass/Vol] 138 mg/dL Invalid Interpretation Code 70 - 110 mg/dL ADM SS Hematocrit (Bld) [Volume fraction] 50.5 % Invalid Interpretation Code 40.0 - 52.0 % Workflow SS Hemoglobin (Bld) [Mass/Vol] 16.6 G/dL Invalid Interpretation Code 13.0 - 17.5 G/dL Workflow SS LDH Lactate to pyruvate reaction [Catalytic activity/Vol] 218 1 Invalid Interpretation Code 120 - 246 U/L ADM SS Lymphocytes (Bld) [#/Vol] 1.6 103/mcL Invalid Interpretation Code 0.9 - 4.3 10^3/mcL AH Workflow SS Lymphocytes/100 WBC (Bld) 19.0 % Invalid Interpretation Code 20.0 - 40.0 % AH Workflow SS MCH (RBC) [Entitic mass] 32.9 pg Invalid Interpretation Code 27.0 - 33.0 pg AH Workflow SS MCHC 32.9 G/dL Invalid Interpretation Code 32.0 - 36.0 G/dL AH Workflow SS MCV (RBC) [Entitic vol] 100.1 fL Invalid Interpretation Code 81.0 - 100.0 fL AH Workflow SS Monocytes (Bld) [#/Vol] 0.3 103/mcL Invalid Interpretation Code 0.1 - 1.4 10^3/mcL AH Workflow SS Monocytes/100 WBC (Bld) 3.7 % Invalid Interpretation Code 2.0 - 13.0 % AH Workflow SS Neutrophils (Bld) [#/Vol] 5.8 103/mcL Invalid Interpretation Code 2.3 - 8.1 10^3/mcL AH Workflow SS Neutrophils/100 WBC (Bld) 68.9 % Invalid Interpretation Code 50.0 - 75.0 % Workflow SS Platelet mean volume (Bld) [Entitic vol] 7.3 fL Invalid Interpretation Code 6.4 - 10.5 fL Workflow SS Platelets (Bld) [#/Vol] 230 103/mcL Invalid Interpretation Code 150 - 450 10^3/mcL Workflow SS Potassium [Moles/Vol] 4.3 mmol/L Invalid Interpretation Code 3.5 - 5.0 mEq/L ADM SS Protein [Mass/Vol] 6.8 G/dL Invalid Interpretation Code 5.7 - 8.2 G/dL ADM SS RBC (Bld) [#/Vol] 5.05 106/mcL Invalid Interpretation Code 4.50 - 6.00 10^6/mcL Workflow SS Sodium [Moles/Vol] 140 mmol/L Invalid Interpretation Code 136 - 145 mEq/L ADM SS TSH Qn 3.518 mIU/mL Invalid Interpretation Code 0.550 - 4.780 mIU/mL ADM SS Urea nitrogen [Mass/Vol] 14.0 mg/dL Invalid Interpretation Code 8.0 - 22.0 mg/dL ADM SS Urea nitrogen/Creatinine [Mass ratio] 11.9 ratio Invalid Interpretation Code 10.0 - 22.0 ratio ADM SS WBC (Bld) [#/Vol] 8.4 103/mcL Invalid Interpretation Code 4.5 - 10.8 10^3/mcL Workflow SS LABORATORYOrdered By: SYSTEM SYSTEM on 01-20-2022 Albumin BCP dye [Mass/Vol] 3.3 G/dL Invalid Interpretation Code 3.2 - 4.8 G/dL ADM SS Albumin/Globulin [Mass ratio] 0.9 {ratio} Invalid Interpretation Code 0.9 - 1.6 ratio ADM SS ALP [Catalytic activity/Vol] 86 U/L Invalid Interpretation Code 38 - 126 U/L ADM SS ALT No additional P-5'-P [Catalytic activity/Vol] 34 U/L Invalid Interpretation Code 12 - 55 U/L ADM SS AST [Catalytic activity/Vol] 27 U/L Invalid Interpretation Code 8 - 34 U/L ADM SS Bili Indirect 0.4 mg/dL Invalid Interpretation Code 0.1 - 10.0 mg/dL Chemistry S Bilirubin [Mass/Vol] 0.60 mg/dL Invalid Interpretation Code 0.20 - 1.20 mg/dL AH ADM SS Bilirubin.conjugated [Mass/Vol] 0.2 mg/dL Invalid Interpretation Code 0.0 - 0.4 mg/dL AH ADM SS Cortisol [Mass/Vol] 14.0 ug/dL Invalid Interpretation Code 6.5 - 26.0 mcg/dL AH ADM SS Free T3 [Mass/Vol] 4.32 pg/mL Invalid Interpretation Code 2.30 - 4.20 pg/mL AH ADM SS Free T4 [Mass/Vol] 1.07 ng/dL Invalid Interpretation Code 0.89 - 1.76 ng/dL AH ADM SS GFR/1.73 sq M.predicted among blacks MDRD (S/P/Bld) [Vol rate/Area] ml/min/1.73sqm Invalid Interpretation Code CC Chemistry S GFR/1.73 sq M.predicted among non-blacks MDRD (S/P/Bld) [Vol rate/Area] ml/min/1.73sqm Invalid Interpretation Code CC Chemistry S Globulin 3.5 G/dL Invalid Interpretation Code 1.5 - 3.8 G/dL ADM SS LDH Lactate to pyruvate reaction [Catalytic activity/Vol] 203 1 Invalid Interpretation Code 120 - 246 U/L ADM SS Protein [Mass/Vol] 6.8 G/dL Invalid Interpretation Code 5.7 - 8.2 G/dL ADM SS TSH Qn 2.745 mIU/mL Invalid Interpretation Code 0.550 - 4.780 mIU/mL ADM SS Basophil, Absolute 0.0 103/mcL Invalid Interpretation Code 0.0 - 0.3 10^3/mcL CC Workflow SS Basophils/100 WBC (Bld) 0.2 % Invalid Interpretation Code 0.0 - 2.5 % CC Workflow SS Eosinophil, Absolute 0.7 103/mcL Invalid Interpretation Code 0.0 - 0.7 10^3/mcL CC Workflow SS Eosinophils/100 WBC (Bld) 7.8 % Invalid Interpretation Code 0.0 - 6.0 % CC Workflow SS Erythrocyte distribution width (RBC) [Ratio] 14.4 % Invalid Interpretation Code 11.5 - 15.5 % CC Workflow SS Hematocrit (Bld) [Volume fraction] 50.7 % Invalid Interpretation Code 40.0 - 52.0 % CC Workflow SS Hgb 17.0 G/dL Invalid Interpretation Code 13.0 - 17.5 G/dL CC Workflow SS Lymphocyte, Absolute 1.6 103/mcL Invalid Interpretation Code 0.9 - 4.3 10^3/mcL CC Workflow SS Lymphocytes/100 WBC (Bld) 18.3 % Invalid Interpretation Code 20.0 - 40.0 % CC Workflow SS MCH (RBC) [Entitic mass] 33.8 pg Invalid Interpretation Code 27.0 - 33.0 pg CC Workflow SS MCHC 33.7 G/dL Invalid Interpretation Code 32.0 - 36.0 G/dL CC Workflow SS MCV (RBC) [Entitic vol] 100.1 fL Invalid Interpretation Code 81.0 - 100.0 fL CC Workflow SS Monocyte, Absolute 0.6 103/mcL Invalid Interpretation Code 0.1 - 1.4 10^3/mcL CC Workflow SS Monocytes/100 WBC (Bld) 6.8 % Invalid Interpretation Code 2.0 - 13.0 % CC Workflow SS Neutrophil, Absolute 5.9 103/mcL Invalid Interpretation Code 2.3 - 8.1 10^3/mcL CC Workflow SS Neutrophils/100 WBC (Bld) 66.7 % Invalid Interpretation Code 50.0 - 75.0 % CC Workflow SS Platelet 198 103/mcL Invalid Interpretation Code 150 - 450 10^3/mcL CC Workflow SS Platelet mean volume (Bld) [Entitic vol] 7.3 fL Invalid Interpretation Code 6.4 - 10.5 fL CC Workflow SS RBC 5.06 106/mcL Invalid Interpretation Code 4.50 - 6.00 10^6/mcL CC Workflow SS WBC 8.8 103/mcL Invalid Interpretation Code 4.5 - 10.8 10^3/mcL CC Workflow SS LABORATORYOrdered By: Chata Fuchs on 01-20-2022 BUN/Creatinine Ratio 12.6 ratio Invalid Interpretation Code 10.0 - 22.0 ratio CC GWP SS Calcium.ionized (Bld) [Moles/Vol] 1.13 mmol/L Invalid Interpretation Code 1.12 - 1.32 mmol/L CC GWP SS Chloride [Moles/Vol] 101 mmol/L Invalid Interpretation Code 98 - 110 mEq/L CC [facility] SS CO2 [Moles/Vol] 23 mmol/L Invalid Interpretation Code 22 - 32 mEq/L CC [facility] SS Creatinine [Mass/Vol] 1.22 mg/dL Invalid Interpretation Code 0.60 - 1.40 mg/dL CC [facility] SS Electrolyte Balance 7.0 mEq/L Invalid Interpretation Code 4.0 - 15.0 mEq/L [facility] Glucose [Mass/Vol] 110 mg/dL Invalid Interpretation Code 70 - 110 mg/dL [facility] SS Potassium [Moles/Vol] 4.6 mmol/L Invalid Interpretation Code 3.5 - 5.0 mEq/L [facility] SS Sodium [Moles/Vol] 131 mmol/L Invalid Interpretation Code 136 - 145 mEq/L [facility] SS Urea nitrogen [Mass/Vol] 15.4 mg/dL Invalid Interpretation Code 8.0 - 22.0 mg/dL [facility] LABORATORYOrdered By: SYSTEM SYSTEM on 12-23-2021 Albumin BCP dye [Mass/Vol] 3.2 G/dL Invalid Interpretation Code 3.2 - 4.8 G/dL ADM SS Albumin/Globulin [Mass ratio] 1.0 {ratio} Invalid Interpretation Code 0.9 - 1.6 ratio ADM SS ALP [Catalytic activity/Vol] 90 U/L Invalid Interpretation Code 38 - 126 U/L ADM SS ALT No additional P-5'-P [Catalytic activity/Vol] 30 U/L Invalid Interpretation Code 12 - 55 U/L ADM SS AST [Catalytic activity/Vol] 21 U/L Invalid Interpretation Code 8 - 34 U/L ADM SS Basophil, Absolute 0.0 103/mcL Invalid Interpretation Code 0.0 - 0.3 10^3/mcL CC Workflow SS Basophils/100 WBC (Bld) 0.3 % Invalid Interpretation Code 0.0 - 2.5 % CC Workflow SS Bili Indirect 0.3 mg/dL Invalid Interpretation Code 0.1 - 10.0 mg/dL Chemistry S Bilirubin [Mass/Vol] 0.50 mg/dL Invalid Interpretation Code 0.20 - 1.20 mg/dL ADM SS Bilirubin.conjugated [Mass/Vol] 0.2 mg/dL Invalid Interpretation Code 0.0 - 0.4 mg/dL ADM SS Cortisol [Mass/Vol] 10.2 ug/dL Invalid Interpretation Code 6.5 - 26.0 mcg/dL ADM SS Eosinophil, Absolute 0.8 103/mcL Invalid Interpretation Code 0.0 - 0.7 10^3/mcL CC Workflow SS Eosinophils/100 WBC (Bld) 8.8 % Invalid Interpretation Code 0.0 - 6.0 % CC Workflow SS Erythrocyte distribution width (RBC) [Ratio] 14.2 % Invalid Interpretation Code 11.5 - 15.5 % CC Workflow SS Free T3 [Mass/Vol] 3.80 pg/mL Invalid Interpretation Code 2.30 - 4.20 pg/mL ADM SS Free T4 [Mass/Vol] 1.10 ng/dL Invalid Interpretation Code 0.89 - 1.76 ng/dL ADM SS GFR/1.73 sq M.predicted among blacks MDRD (S/P/Bld) [Vol rate/Area] ml/min/1.73sqm Invalid Interpretation Code CC Chemistry S GFR/1.73 sq M.predicted among non-blacks MDRD (S/P/Bld) [Vol rate/Area] 53 ml/min/1.73sqm Invalid Interpretation Code CC Chemistry S Globulin 3.3 G/dL Invalid Interpretation Code 1.5 - 3.8 G/dL ADM SS Hematocrit (Bld) [Volume fraction] 50.4 % Invalid Interpretation Code 40.0 - 52.0 % CC Workflow SS Hgb 17.2 G/dL Invalid Interpretation Code 13.0 - 17.5 G/dL CC Workflow SS LDH Lactate to pyruvate reaction [Catalytic activity/Vol] 194 1 Invalid Interpretation Code 120 - 246 U/L ADM SS Lymphocyte, Absolute 1.6 103/mcL Invalid Interpretation Code 0.9 - 4.3 10^3/mcL CC Workflow SS Lymphocytes/100 WBC (Bld) 17.6 % Invalid Interpretation Code 20.0 - 40.0 % CC Workflow SS MCH (RBC) [Entitic mass] 33.9 pg Invalid Interpretation Code 27.0 - 33.0 pg CC Workflow SS MCHC 34.1 G/dL Invalid Interpretation Code 32.0 - 36.0 G/dL CC Workflow SS MCV (RBC) [Entitic vol] 99.3 fL Invalid Interpretation Code 81.0 - 100.0 fL CC Workflow SS Monocyte, Absolute 0.6 103/mcL Invalid Interpretation Code 0.1 - 1.4 10^3/mcL CC Workflow SS Monocytes/100 WBC (Bld) 7.0 % Invalid Interpretation Code 2.0 - 13.0 % CC Workflow SS Neutrophil, Absolute 6.1 103/mcL Invalid Interpretation Code 2.3 - 8.1 10^3/mcL CC Workflow SS Neutrophils/100 WBC (Bld) 66.0 % Invalid Interpretation Code 50.0 - 75.0 % CC Workflow SS Platelet 198 103/mcL Invalid Interpretation Code 150 - 450 10^3/mcL CC Workflow SS Platelet Estimate Normal *NA* (12/23/21 10:21 AM) Invalid Interpretation Code CC Workflow SS Platelet mean volume (Bld) [Entitic vol] 7.1 fL Invalid Interpretation Code 6.4 - 10.5 fL CC Workflow SS Protein [Mass/Vol] 6.5 G/dL Invalid Interpretation Code 5.7 - 8.2 G/dL ADM SS RBC 5.08 106/mcL Invalid Interpretation Code 4.50 - 6.00 10^6/mcL CC Workflow SS RBC morphology finding Nom (Bld) See Below 1 *NA* (12/23/21 10:21 AM) Invalid Interpretation Code CC Workflow SS Comment on above: Result Comment: RBC Morphology appears Normal RBC morphology finding Nom (Bld) See Below 2 *NA* (12/23/21 10:21 AM) Invalid Interpretation Code CC Workflow SS Comment on above: Result Comment: RBC Morphology appears Normal TSH Qn 2.139 mIU/mL Invalid Interpretation Code 0.550 - 4.780 mIU/mL ADM SS WBC 9.2 103/mcL Invalid Interpretation Code 4.5 - 10.8 10^3/mcL CC Workflow SS LABORATORYOrdered By: Estella Bernard on 12-23-2021 BUN/Creatinine Ratio 10.3 ratio Invalid Interpretation Code 10.0 - 22.0 ratio CC GWP SS Calcium.ionized (Bld) [Moles/Vol] 1.08 mmol/L Invalid Interpretation Code 1.12 - 1.32 mmol/L CC GWP SS Chloride [Moles/Vol] 100 mmol/L Invalid Interpretation Code 98 - 110 mEq/L CC GWP SS CO2 [Moles/Vol] 21 mmol/L Invalid Interpretation Code 22 - 32 mEq/L CC GWP SS Creatinine [Mass/Vol] 1.47 mg/dL Invalid Interpretation Code 0.60 - 1.40 mg/dL CC GWP SS Electrolyte Balance 9.0 mEq/L Invalid Interpretation Code 4.0 - 15.0 mEq/L CC GWP SS Glucose [Mass/Vol] 107 mg/dL Invalid Interpretation Code 70 - 110 mg/dL CC GWP SS Potassium [Moles/Vol] 5.0 mmol/L Invalid Interpretation Code 3.5 - 5.0 mEq/L CC GWP SS Sodium [Moles/Vol] 130 mmol/L Invalid Interpretation Code 136 - 145 mEq/L CC GWP SS Urea nitrogen [Mass/Vol] 15.2 mg/dL Invalid Interpretation Code 8.0 - 22.0 mg/dL CC GWP SS LABORATORYOrdered By: SYSTEM SYSTEM on 09-22-2021 Albumin BCP dye [Mass/Vol] 3.4 G/dL Invalid Interpretation Code 3.2 - 4.8 G/dL ADM SS Albumin/Globulin [Mass ratio] 1.0 {ratio} Invalid Interpretation Code 0.9 - 1.6 ratio ADM SS ALP [Catalytic activity/Vol] 89 U/L Invalid Interpretation Code 38 - 126 U/L ADM SS ALT No additional P-5'-P [Catalytic activity/Vol] 24 U/L Invalid Interpretation Code 12 - 55 U/L ADM SS AST [Catalytic activity/Vol] 22 U/L Invalid Interpretation Code 8 - 34 U/L ADM SS Basophils (Bld) [#/Vol] 0.1 103/mcL Invalid Interpretation Code 0.0 - 0.3 10^3/mcL AH Workflow SS Basophils/100 WBC (Bld) 0.7 % Invalid Interpretation Code 0.0 - 2.5 % Workflow SS Bilirubin [Mass/Vol] 0.60 mg/dL Invalid Interpretation Code 0.20 - 1.20 mg/dL ADM SS Calcium [Mass/Vol] 9.0 mg/dL Invalid Interpretation Code 8.7 - 10.4 mg/dL ADM SS Chloride [Moles/Vol] 103 mmol/L Invalid Interpretation Code 98 - 110 mEq/L ADM SS CO2 [Moles/Vol] 32 mmol/L Invalid Interpretation Code 22 - 32 mEq/L ADM SS Creatinine [Mass/Vol] 1.24 mg/dL Invalid Interpretation Code 0.60 - 1.40 mg/dL ADM SS Electrolyte Balance 5.0 mEq/L Invalid Interpretation Code 4.0 - 15.0 mEq/L ADM SS Eosinophils (Bld) [#/Vol] 0.5 103/mcL Invalid Interpretation Code 0.0 - 0.7 10^3/mcL AH Workflow SS Eosinophils/100 WBC (Bld) 6.6 % Invalid Interpretation Code 0.0 - 6.0 % Workflow SS Erythrocyte distribution width (RBC) [Ratio] 15.6 % Invalid Interpretation Code 11.5 - 15.5 % Workflow SS Free T3 [Mass/Vol] 4.30 pg/mL Invalid Interpretation Code 2.30 - 4.20 pg/mL ADM SS Free T4 [Mass/Vol] 1.10 ng/dL Invalid Interpretation Code 0.89 - 1.76 ng/dL ADM SS GFR/1.73 sq M.predicted among blacks MDRD (S/P/Bld) [Vol rate/Area] ml/min/1.73sqm Invalid Interpretation Code AH ADM SS GFR/1.73 sq M.predicted among non-blacks MDRD (S/P/Bld) [Vol rate/Area] ml/min/1.73sqm Invalid Interpretation Code ADM SS Globulin 3.5 G/dL Invalid Interpretation Code 1.5 - 3.8 G/dL ADM SS Glucose [Mass/Vol] 104 mg/dL Invalid Interpretation Code 70 - 110 mg/dL ADM SS Hematocrit (Bld) [Volume fraction] 50.4 % Invalid Interpretation Code 40.0 - 52.0 % Workflow SS Hemoglobin (Bld) [Mass/Vol] 16.6 G/dL Invalid Interpretation Code 13.0 - 17.5 G/dL Workflow SS LDH Lactate to pyruvate reaction [Catalytic activity/Vol] 215 1 Invalid Interpretation Code 120 - 246 U/L ADM SS Lymphocytes (Bld) [#/Vol] 1.2 103/mcL Invalid Interpretation Code 0.9 - 4.3 10^3/mcL Workflow SS Lymphocytes/100 WBC (Bld) 15.8 % Invalid Interpretation Code 20.0 - 40.0 % Workflow SS MCH (RBC) [Entitic mass] 32.3 pg Invalid Interpretation Code 27.0 - 33.0 pg Workflow SS MCHC 32.8 G/dL Invalid Interpretation Code 32.0 - 36.0 G/dL Workflow SS MCV (RBC) [Entitic vol] 98.4 fL Invalid Interpretation Code 81.0 - 100.0 fL Workflow SS Monocyte distribution width Auto (Bld) [Entitic vol] Not Performed 1 *NA* (09/22/21 9:20 AM) Invalid Interpretation Code 0.00 - 20.00 Hematology S Comment on above: Result Comment: MDW testing performed only on adult ER patients between the ages of 18-89 years. Monocytes (Bld) [#/Vol] 0.5 103/mcL Invalid Interpretation Code 0.1 - 1.4 10^3/mcL AH Workflow SS Monocytes/100 WBC (Bld) 6.4 % Invalid Interpretation Code 2.0 - 13.0 % AH Workflow SS Neutrophils (Bld) [#/Vol] 5.4 103/mcL Invalid Interpretation Code 2.3 - 8.1 10^3/mcL AH Workflow SS Neutrophils/100 WBC (Bld) 70.5 % Invalid Interpretation Code 50.0 - 75.0 % AH Workflow SS Platelet mean volume (Bld) [Entitic vol] 6.9 fL Invalid Interpretation Code 6.4 - 10.5 fL AH Workflow SS Platelets (Bld) [#/Vol] 202 103/mcL Invalid Interpretation Code 150 - 450 10^3/mcL AH Workflow SS Potassium [Moles/Vol] 4.2 mmol/L Invalid Interpretation Code 3.5 - 5.0 mEq/L ADM SS Comment on above: Result Comment: Spec imen slightly hemolyzed. Protein [Mass/Vol] 6.9 G/dL Invalid Interpretation Code 5.7 - 8.2 G/dL ADM SS RBC (Bld) [#/Vol] 5.12 106/mcL Invalid Interpretation Code 4.50 - 6.00 10^6/mcL AH Workflow SS Sodium [Moles/Vol] 140 mmol/L Invalid Interpretation Code 136 - 145 mEq/L ADM SS TSH Qn 3.354 mIU/mL Invalid Interpretation Code 0.550 - 4.780 mIU/mL ADM SS Urea nitrogen [Mass/Vol] 16.0 mg/dL Invalid Interpretation Code 8.0 - 22.0 mg/dL ADM SS Urea nitrogen/Creatinine [Mass ratio] 12.9 ratio Invalid Interpretation Code 10.0 - 22.0 ratio AH ADM SS WBC 7.6 103/mcL Invalid Interpretation Code 4.5 - 10.8 10^3/mcL Workflow SS LABORATORYOrdered By: SYSTEM SYSTEM on 06-30-2021 Albumin BCP dye [Mass/Vol] 3.1 G/dL Invalid Interpretation Code 3.2 - 4.8 G/dL ADM SS Albumin/Globulin [Mass ratio] 0.9 {ratio} Invalid Interpretation Code 0.9 - 1.6 ratio ADM SS ALP [Catalytic activity/Vol] 94 U/L Invalid Interpretation Code 38 - 126 U/L ADM SS ALT No additional P-5'-P [Catalytic activity/Vol] 23 U/L Invalid Interpretation Code 12 - 55 U/L AH ADM SS AST [Catalytic activity/Vol] 23 U/L Invalid Interpretation Code 8 - 34 U/L AH ADM SS Basophils (Bld) [#/Vol] 0.00 103/mcL Invalid Interpretation Code 0.00 - 0.27 10^3/mcL AH Remisol SS Basophils/100 WBC (Bld) 0.6 % Invalid Interpretation Code 0.0 - 2.5 % AH Remisol SS Bilirubin [Mass/Vol] 0.50 mg/dL Invalid Interpretation Code 0.20 - 1.20 mg/dL AH ADM SS Calcium [Mass/Vol] 9.0 mg/dL Invalid Interpretation Code 8.7 - 10.4 mg/dL AH ADM SS Chloride [Moles/Vol] 107 mmol/L Invalid Interpretation Code 98 - 110 mEq/L AH ADM SS CO2 [Moles/Vol] 28 mmol/L Invalid Interpretation Code 22 - 32 mEq/L AH ADM SS Cortisol [Mass/Vol] 10.5 ug/dL Invalid Interpretation Code 6.5 - 26.0 mcg/dL AH ADM SS Creatinine [Mass/Vol] 1.26 mg/dL Invalid Interpretation Code 0.60 - 1.40 mg/dL AH ADM SS Electrolyte Balance 1.0 mEq/L Invalid Interpretation Code 4.0 - 15.0 mEq/L AH ADM SS Eosinophils (Bld) [#/Vol] 0.50 103/mcL Invalid Interpretation Code 0.00 - 0.65 10^3/mcL AH Remisol SS Eosinophils/100 WBC (Bld) 6.1 % Invalid Interpretation Code 0.0 - 6.0 % AH Remisol SS Erythrocyte distribution width (RBC) [Ratio] 15.0 % Invalid Interpretation Code 11.5 - 15.5 % AH Remisol SS Free T3 [Mass/Vol] 3.85 mcg/mL Invalid Interpretation Code 2.30 - 4.20 mcg/mL AH ADM SS Free T4 [Mass/Vol] 1.09 mcg/dL Invalid Interpretation Code 0.89 - 1.76 mcg/dL AH ADM SS GFR/1.73 sq M.predicted among blacks MDRD (S/P/Bld) [Vol rate/Area] ml/min/1.73sqm Invalid Interpretation Code AH ADM SS GFR/1.73 sq M.predicted among non-blacks MDRD (S/P/Bld) [Vol rate/Area] ml/min/1.73sqm Invalid Interpretation Code AH ADM SS Globulin 3.4 G/dL Invalid Interpretation Code 1.5 - 3.8 G/dL AH ADM SS Glucose [Mass/Vol] 110 mg/dL Invalid Interpretation Code 70 - 110 mg/dL AH ADM SS Hematocrit (Bld) [Volume fraction] 50.4 % Invalid Interpretation Code 40.0 - 52.0 % AH Remisol SS Hemoglobin (Bld) [Mass/Vol] 17.0 G/dL Invalid Interpretation Code 13.0 - 17.5 G/dL AH Remisol SS LDH Lactate to pyruvate reaction [Catalytic activity/Vol] 239 1 Invalid Interpretation Code 120 - 246 U/L AH ADM SS Lymphocytes (Bld) [#/Vol] 1.10 103/mcL Invalid Interpretation Code 0.90 - 4.32 10^3/mcL AH Remisol SS Lymphocytes/100 WBC (Bld) 13.7 % Invalid Interpretation Code 20.0 - 40.0 % AH Remisol SS MCH (RBC) [Entitic mass] 32.8 pg Invalid Interpretation Code 27.0 - 33.0 pg AH Remisol SS MCHC (RBC) [Mass/Vol] 33.8 G/dL Invalid Interpretation Code 32.0 - 36.0 G/dL AH Remisol SS MCV (RBC) [Entitic vol] 97.2 fL Invalid Interpretation Code 81.0 - 100.0 fL AH Remisol SS Monocytes (Bld) [#/Vol] 0.50 103/mcL Invalid Interpretation Code 0.09 - 1.40 10^3/mcL AH Remisol SS Monocytes/100 WBC (Bld) 6.9 % Invalid Interpretation Code 2.0 - 13.0 % AH Remisol SS Neutrophils (Bld) [#/Vol] 5.60 103/mcL Invalid Interpretation Code 2.25 - 8.10 10^3/mcL AH Remisol SS Neutrophils/100 WBC (Bld) 72.7 % Invalid Interpretation Code 50.0 - 75.0 % AH Remisol SS Platelet mean volume (Bld) [Entitic vol] 7.4 fL Invalid Interpretation Code 6.4 - 10.5 fL AH Remisol SS Platelets (Bld) [#/Vol] 205 103/mcL Invalid Interpretation Code 150 - 450 10^3/mcL AH Remisol SS Potassium [Moles/Vol] 4.7 mmol/L Invalid Interpretation Code 3.5 - 5.0 mEq/L AH ADM SS Comment on above: Result Comment: Spec imen slightly hemolyzed. Protein [Mass/Vol] 6.5 G/dL Invalid Interpretation Code 5.7 - 8.2 G/dL AH ADM SS RBC (Bld) [#/Vol] 5.18 106/mcL Invalid Interpretation Code 4.50 - 6.00 10^6/mcL AH Remisol SS Sodium [Moles/Vol] 136 mmol/L Invalid Interpretation Code 136 - 145 mEq/L ADM SS TSH Qn 2.564 mIU/mL Invalid Interpretation Code 0.550 - 4.780 mIU/mL AH ADM SS Urea nitrogen [Mass/Vol] 15.0 mg/dL Invalid Interpretation Code 8.0 - 22.0 mg/dL AH ADM SS Urea nitrogen/Creatinine [Mass ratio] 11.9 ratio Invalid Interpretation Code 10.0 - 22.0 ratio ADM SS WBC (Bld) [#/Vol] 7.70 103/mcL Invalid Interpretation Code 4.50 - 10.80 10^3/mcL Remisol SS LABORATORYOrdered By: SYSTEM SYSTEM on 06-02-2021 Albumin [Mass/Vol] 3.0 G/dL Invalid Interpretation Code 3.2 - 4.8 G/dL ADM SS Albumin/Globulin [Mass ratio] 0.7 {ratio} Invalid Interpretation Code 0.9 - 1.6 ratio AH ADM SS ALP [Catalytic activity/Vol] 97 U/L Invalid Interpretation Code 38 - 126 U/L AH ADM SS ALT [Catalytic activity/Vol] 32 U/L Invalid Interpretation Code 12 - 55 U/L AH ADM SS AST [Catalytic activity/Vol] 27 U/L Invalid Interpretation Code 8 - 34 U/L AH ADM SS Comment on above: Result Comment: Spec imen slightly hemolyzed. Results may be falsely elevated. Base excess Calc (BldMV) [Moles/Vol] 6.0 mEq/L Invalid Interpretation Code 4.0 - 15.0 mEq/L AH ADM SS Basophils (Bld) [#/Vol] 0.10 103/mcL Invalid Interpretation Code 0.00 - 0.27 10^3/mcL AH Remisol SS Basophils/100 WBC (Bld) 1.3 % Invalid Interpretation Code 0.0 - 2.5 % AH Remisol SS Bilirubin [Mass/Vol] 0.50 mg/dL Invalid Interpretation Code 0.20 - 1.20 mg/dL AH ADM SS Calcium [Mass/Vol] 8.8 mg/dL Invalid Interpretation Code 8.4 - 10.1 mg/dL AH ADM SS Chloride [Moles/Vol] 105 mmol/L Invalid Interpretation Code 98 - 110 mEq/L ADM SS CO2 [Moles/Vol] 27 mmol/L Invalid Interpretation Code 22 - 32 mEq/L ADM SS Cortisol [Mass/Vol] 14.5 ug/dL Invalid Interpretation Code 6.5 - 26.0 mcg/dL ADM SS Creatinine [Mass/Vol] 1.45 mg/dL Invalid Interpretation Code 0.60 - 1.40 mg/dL AH ADM SS Eosinophils (Bld) [#/Vol] 0.50 103/mcL Invalid Interpretation Code 0.00 - 0.65 10^3/mcL Remisol SS Eosinophils/100 WBC (Bld) 6.3 % Invalid Interpretation Code 0.0 - 6.0 % Remisol SS Erythrocyte distribution width (RBC) [Ratio] 15.0 % Invalid Interpretation Code 11.5 - 15.5 % Remisol SS Free T3 [Mass/Vol] 3.77 mcg/mL Invalid Interpretation Code 2.30 - 4.20 mcg/mL ADM SS Free T4 [Mass/Vol] 1.16 mcg/dL Invalid Interpretation Code 0.89 - 1.76 mcg/dL AH ADM SS GFR/1.73 sq M.predicted among blacks MDRD (S/P/Bld) [Vol rate/Area] ml/min/1.73sqm Invalid Interpretation Code AH ADM SS GFR/1.73 sq M.predicted among non-blacks MDRD (S/P/Bld) [Vol rate/Area] 53 ml/min/1.73sqm Invalid Interpretation Code ADM SS Globulin (S) [Mass/Vol] 4.1 G/dL Invalid Interpretation Code 1.5 - 3.8 G/dL AH ADM SS Glucose [Mass/Vol] 110 mg/dL Invalid Interpretation Code 70 - 110 mg/dL AH ADM SS Hematocrit (Bld) [Volume fraction] 51.8 % Invalid Interpretation Code 40.0 - 52.0 % Remisol SS Hemoglobin (Bld) [Mass/Vol] 17.3 G/dL Invalid Interpretation Code 13.0 - 17.5 G/dL AH Remisol SS LDH [Catalytic activity/Vol] 288 U/L Invalid Interpretation Code 120 - 246 U/L AH ADM SS Comment on above: Result Comment: Spec imen slightly hemolyzed. Results may be falsely elevated. Lymphocytes (Bld) [#/Vol] 1.30 103/mcL Invalid Interpretation Code 0.90 - 4.32 10^3/mcL AH Remisol SS Lymphocytes/100 WBC (Bld) 16.7 % Invalid Interpretation Code 20.0 - 40.0 % AH Remisol SS MCH (RBC) [Entitic mass] 32.5 pg Invalid Interpretation Code 27.0 - 33.0 pg AH Remisol SS MCHC (RBC) [Mass/Vol] 33.4 G/dL Invalid Interpretation Code 32.0 - 36.0 G/dL AH Remisol SS MCV (RBC) [Entitic vol] 97.2 fL Invalid Interpretation Code 81.0 - 100.0 fL AH Remisol SS Monocytes (Bld) [#/Vol] 0.60 103/mcL Invalid Interpretation Code 0.09 - 1.40 10^3/mcL AH Remisol SS Monocytes/100 WBC (Bld) 7.7 % Invalid Interpretation Code 2.0 - 13.0 % AH Remisol SS Neutrophils (Bld) [#/Vol] 5.10 103/mcL Invalid Interpretation Code 2.25 - 8.10 10^3/mcL AH Remisol SS Neutrophils/100 WBC (Bld) 68.0 % Invalid Interpretation Code 50.0 - 75.0 % AH Remisol SS Platelet mean volume (Bld) [Entitic vol] 7.2 fL Invalid Interpretation Code 6.4 - 10.5 fL AH Remisol SS Platelets (Bld) [#/Vol] 223 103/mcL Invalid Interpretation Code 150 - 450 10^3/mcL AH Remisol SS Potassium [Moles/Vol] 5.0 mmol/L Invalid Interpretation Code 3.5 - 5.0 mEq/L AH ADM SS Comment on above: Result Comment: Spec imen slightly hemolyzed. Results may be falsely elevated. Protein [Mass/Vol] 7.1 G/dL Invalid Interpretation Code 6.0 - 8.5 G/dL AH ADM SS RBC (Bld) [#/Vol] 5.33 106/mcL Invalid Interpretation Code 4.50 - 6.00 10^6/mcL AH Remisol SS Sodium [Moles/Vol] 138 mmol/L Invalid Interpretation Code 136 - 145 mEq/L AH ADM SS TSH Qn 2.106 mIU/mL Invalid Interpretation Code 0.550 - 4.780 mIU/mL AH ADM SS Urea nitrogen [Mass/Vol] 25.0 mg/dL Invalid Interpretation Code 8.0 - 22.0 mg/dL AH ADM SS Urea nitrogen/Creatinine [Mass ratio] 17.2 ratio Invalid Interpretation Code 10.0 - 22.0 ratio AH ADM SS WBC (Bld) [#/Vol] 7.50 103/mcL Invalid Interpretation Code 4.50 - 10.80 10^3/mcL AH Remisol SS LABORATORYOrdered By: SYSTEM SYSTEM on 05-05-2021 Albumin [Mass/Vol] 2.8 G/dL Invalid Interpretation Code 3.2 - 4.8 G/dL AH ADM SS Albumin/Globulin [Mass ratio] 0.7 {ratio} Invalid Interpretation Code 0.9 - 1.6 ratio AH ADM SS ALP [Catalytic activity/Vol] 99 U/L Invalid Interpretation Code 38 - 126 U/L AH ADM SS ALT [Catalytic activity/Vol] 28 U/L Invalid Interpretation Code 12 - 55 U/L AH ADM SS AST [Catalytic activity/Vol] 13 U/L Invalid Interpretation Code 8 - 34 U/L AH ADM SS Base excess Calc (BldMV) [Moles/Vol] 6.0 mEq/L Invalid Interpretation Code 4.0 - 15.0 mEq/L AH ADM SS Basophils (Bld) [#/Vol] 0.10 103/mcL Invalid Interpretation Code 0.00 - 0.27 10^3/mcL AH Remisol SS Basophils/100 WBC (Bld) 0.8 % Invalid Interpretation Code 0.0 - 2.5 % AH Remisol SS Bilirubin [Mass/Vol] 0.3 mg/dL Invalid Interpretation Code 0.2 - 1.2 mg/dL AH ADM SS Calcium [Mass/Vol] 8.3 mg/dL Invalid Interpretation Code 8.4 - 10.1 mg/dL AH ADM SS Chloride [Moles/Vol] 106 mmol/L Invalid Interpretation Code 98 - 110 mEq/L AH ADM SS CO2 [Moles/Vol] 26 mmol/L Invalid Interpretation Code 22 - 32 mEq/L AH ADM SS Creatinine [Mass/Vol] 1.15 mg/dL Invalid Interpretation Code 0.60 - 1.40 mg/dL AH ADM SS Eosinophils (Bld) [#/Vol] 0.50 103/mcL Invalid Interpretation Code 0.00 - 0.65 10^3/mcL AH Remisol SS Eosinophils/100 WBC (Bld) 6.6 % Invalid Interpretation Code 0.0 - 6.0 % AH Remisol SS Erythrocyte distribution width (RBC) [Ratio] 14.7 % Invalid Interpretation Code 11.5 - 15.5 % AH Remisol SS GFR/1.73 sq M.predicted among blacks MDRD (S/P/Bld) [Vol rate/Area] ml/min/1.73sqm Invalid Interpretation Code AH ADM SS GFR/1.73 sq M.predicted among non-blacks MDRD (S/P/Bld) [Vol rate/Area] ml/min/1.73sqm Invalid Interpretation Code ADM SS Globulin (S) [Mass/Vol] 4.1 G/dL Invalid Interpretation Code 1.5 - 3.8 G/dL ADM SS Glucose [Mass/Vol] 121 mg/dL Invalid Interpretation Code 70 - 110 mg/dL AH ADM SS Hematocrit (Bld) [Volume fraction] 48.3 % Invalid Interpretation Code 40.0 - 52.0 % AH Remisol SS Hemoglobin (Bld) [Mass/Vol] 15.7 G/dL Invalid Interpretation Code 13.0 - 17.5 G/dL Remisol SS LDH [Catalytic activity/Vol] 184 U/L Invalid Interpretation Code 120 - 246 U/L ADM SS Lymphocytes (Bld) [#/Vol] 1.40 103/mcL Invalid Interpretation Code 0.90 - 4.32 10^3/mcL AH Remisol SS Lymphocytes/100 WBC (Bld) 19.2 % Invalid Interpretation Code 20.0 - 40.0 % AH Remisol SS MCH (RBC) [Entitic mass] 31.8 pg Invalid Interpretation Code 27.0 - 33.0 pg AH Remisol SS MCHC (RBC) [Mass/Vol] 32.5 G/dL Invalid Interpretation Code 32.0 - 36.0 G/dL AH Remisol SS MCV (RBC) [Entitic vol] 97.9 fL Invalid Interpretation Code 81.0 - 100.0 fL AH Remisol SS Monocytes (Bld) [#/Vol] 0.50 103/mcL Invalid Interpretation Code 0.09 - 1.40 10^3/mcL AH Remisol SS Monocytes/100 WBC (Bld) 6.1 % Invalid Interpretation Code 2.0 - 13.0 % AH Remisol SS Neutrophils (Bld) [#/Vol] 5.00 103/mcL Invalid Interpretation Code 2.25 - 8.10 10^3/mcL AH Remisol SS Neutrophils/100 WBC (Bld) 67.3 % Invalid Interpretation Code 50.0 - 75.0 % AH Remisol SS Platelet mean volume (Bld) [Entitic vol] 7.2 fL Invalid Interpretation Code 6.4 - 10.5 fL AH Remisol SS Platelets (Bld) [#/Vol] 277 103/mcL Invalid Interpretation Code 150 - 450 10^3/mcL AH Remisol SS Potassium [Moles/Vol] 4.6 mmol/L Invalid Interpretation Code 3.5 - 5.0 mEq/L AH ADM SS Protein [Mass/Vol] 6.9 G/dL Invalid Interpretation Code 6.0 - 8.5 G/dL AH ADM SS RBC (Bld) [#/Vol] 4.94 106/mcL Invalid Interpretation Code 4.50 - 6.00 10^6/mcL AH Remisol SS Sodium [Moles/Vol] 138 mmol/L Invalid Interpretation Code 136 - 145 mEq/L AH ADM SS Urea nitrogen [Mass/Vol] 16.0 mg/dL Invalid Interpretation Code 8.0 - 22.0 mg/dL AH ADM SS Urea nitrogen/Creatinine [Mass ratio] 13.9 ratio Invalid Interpretation Code 10.0 - 22.0 ratio AH ADM SS WBC (Bld) [#/Vol] 7.50 103/mcL Invalid Interpretation Code 4.50 - 10.80 10^3/mcL AH Remisol SS Cortisol [Mass/Vol] 12.3 ug/dL Invalid Interpretation Code 6.5 - 26.0 mcg/dL AH ADM SS Free T3 [Mass/Vol] 3.76 mcg/mL Invalid Interpretation Code 2.30 - 4.20 mcg/mL AH ADM SS Free T4 [Mass/Vol] 1.06 mcg/dL Invalid Interpretation Code 0.89 - 1.76 mcg/dL AH ADM SS TSH Qn 3.685 mIU/mL Invalid Interpretation Code 0.550 - 4.780 mIU/mL AH ADM SS LABORATORYOrdered By: SYSTEM SYSTEM on 04-07-2021 Albumin [Mass/Vol] 3.0 G/dL Invalid Interpretation Code 3.2 - 4.8 G/dL AH ADM SS Albumin/Globulin [Mass ratio] 0.8 {ratio} Invalid Interpretation Code 0.9 - 1.6 ratio AH ADM SS ALP [Catalytic activity/Vol] 98 U/L Invalid Interpretation Code 38 - 126 U/L AH ADM SS ALT [Catalytic activity/Vol] 34 U/L Invalid Interpretation Code 12 - 55 U/L ADM SS AST [Catalytic activity/Vol] 17 U/L Invalid Interpretation Code 8 - 34 U/L AH ADM SS Base excess Calc (BldMV) [Moles/Vol] 3.0 mEq/L Invalid Interpretation Code 4.0 - 15.0 mEq/L AH ADM SS Basophils (Bld) [#/Vol] 0.10 103/mcL Invalid Interpretation Code 0.00 - 0.27 10^3/mcL AH Remisol SS Basophils/100 WBC (Bld) 0.9 % Invalid Interpretation Code 0.0 - 2.5 % AH Remisol SS Bilirubin [Mass/Vol] 0.6 mg/dL Invalid Interpretation Code 0.2 - 1.2 mg/dL AH ADM SS Calcium [Mass/Vol] 9.0 mg/dL Invalid Interpretation Code 8.4 - 10.1 mg/dL AH ADM SS Chloride [Moles/Vol] 106 mmol/L Invalid Interpretation Code 98 - 110 mEq/L AH ADM SS CO2 [Moles/Vol] 29 mmol/L Invalid Interpretation Code 22 - 32 mEq/L AH ADM SS Creatinine [Mass/Vol] 1.25 mg/dL Invalid Interpretation Code 0.60 - 1.40 mg/dL AH ADM SS Eosinophils (Bld) [#/Vol] 0.50 103/mcL Invalid Interpretation Code 0.00 - 0.65 10^3/mcL AH Remisol SS Eosinophils/100 WBC (Bld) 5.9 % Invalid Interpretation Code 0.0 - 6.0 % AH Remisol SS Erythrocyte distribution width (RBC) [Ratio] 14.9 % Invalid Interpretation Code 11.5 - 15.5 % AH Remisol SS Free T3 [Mass/Vol] 3.91 mcg/mL Invalid Interpretation Code 2.30 - 4.20 mcg/mL AH ADM SS Free T4 [Mass/Vol] 1.23 mcg/dL Invalid Interpretation Code 0.89 - 1.76 mcg/dL AH ADM SS GFR/1.73 sq M.predicted among blacks MDRD (S/P/Bld) [Vol rate/Area] ml/min/1.73sqm Invalid Interpretation Code AH ADM SS GFR/1.73 sq M.predicted among non-blacks MDRD (S/P/Bld) [Vol rate/Area] ml/min/1.73sqm Invalid Interpretation Code AH ADM SS Globulin (S) [Mass/Vol] 4.0 G/dL Invalid Interpretation Code 1.5 - 3.8 G/dL AH ADM SS Glucose [Mass/Vol] 113 mg/dL Invalid Interpretation Code 70 - 110 mg/dL AH ADM SS Hematocrit (Bld) [Volume fraction] 51.8 % Invalid Interpretation Code 40.0 - 52.0 % AH Remisol SS Hemoglobin (Bld) [Mass/Vol] 17.1 G/dL Invalid Interpretation Code 13.0 - 17.5 G/dL AH Remisol SS LDH [Catalytic activity/Vol] 169 U/L Invalid Interpretation Code 120 - 246 U/L AH ADM SS Lymphocytes (Bld) [#/Vol] 1.30 103/mcL Invalid Interpretation Code 0.90 - 4.32 10^3/mcL AH Remisol SS Lymphocytes/100 WBC (Bld) 16.5 % Invalid Interpretation Code 20.0 - 40.0 % AH Remisol SS MCH (RBC) [Entitic mass] 32.8 pg Invalid Interpretation Code 27.0 - 33.0 pg AH Remisol SS MCHC (RBC) [Mass/Vol] 32.9 G/dL Invalid Interpretation Code 32.0 - 36.0 G/dL AH Remisol SS MCV (RBC) [Entitic vol] 99.6 fL Invalid Interpretation Code 81.0 - 100.0 fL AH Remisol SS Monocytes (Bld) [#/Vol] 0.60 103/mcL Invalid Interpretation Code 0.09 - 1.40 10^3/mcL AH Remisol SS Monocytes/100 WBC (Bld) 7.8 % Invalid Interpretation Code 2.0 - 13.0 % AH Remisol SS Neutrophils (Bld) [#/Vol] 5.30 103/mcL Invalid Interpretation Code 2.25 - 8.10 10^3/mcL AH Remisol SS Neutrophils/100 WBC (Bld) 68.9 % Invalid Interpretation Code 50.0 - 75.0 % AH Remisol SS Platelet mean volume (Bld) [Entitic vol] 7.5 fL Invalid Interpretation Code 6.4 - 10.5 fL AH Remisol SS Platelets (Bld) [#/Vol] 259 103/mcL Invalid Interpretation Code 150 - 450 10^3/mcL AH Remisol SS Potassium [Moles/Vol] 4.7 mmol/L Invalid Interpretation Code 3.5 - 5.0 mEq/L AH ADM SS Protein [Mass/Vol] 7.0 G/dL Invalid Interpretation Code 6.0 - 8.5 G/dL AH ADM SS RBC (Bld) [#/Vol] 5.20 106/mcL Invalid Interpretation Code 4.50 - 6.00 10^6/mcL AH Remisol SS Sodium [Moles/Vol] 138 mmol/L Invalid Interpretation Code 136 - 145 mEq/L AH ADM SS TSH Qn 1.755 mIU/mL Invalid Interpretation Code 0.550 - 4.780 mIU/mL AH ADM SS Urea nitrogen [Mass/Vol] 15.0 mg/dL Invalid Interpretation Code 8.0 - 22.0 mg/dL AH ADM SS Urea nitrogen/Creatinine [Mass ratio] 12.0 ratio Invalid Interpretation Code 10.0 - 22.0 ratio AH ADM SS WBC (Bld) [#/Vol] 7.70 103/mcL Invalid Interpretation Code 4.50 - 10.80 10^3/mcL AH Remisol SS LABORATORYOrdered By: Estella Rodriguez on 03-17-2021 Albumin [Mass/Vol] 2.9 G/dL Invalid Interpretation Code 3.2 - 4.8 G/dL AH ADM SS Albumin/Globulin [Mass ratio] 0.7 {ratio} Invalid Interpretation Code 0.9 - 1.6 ratio AH ADM SS ALP [Catalytic activity/Vol] 92 U/L Invalid Interpretation Code 38 - 126 U/L AH ADM SS ALT [Catalytic activity/Vol] 26 U/L Invalid Interpretation Code 12 - 55 U/L AH ADM SS AST [Catalytic activity/Vol] 14 U/L Invalid Interpretation Code 8 - 34 U/L AH ADM SS Base excess Calc (BldMV) [Moles/Vol] 6.0 mEq/L Invalid Interpretation Code 4.0 - 15.0 mEq/L ADM SS Bilirubin [Mass/Vol] 0.4 mg/dL Invalid Interpretation Code 0.2 - 1.2 mg/dL AH ADM SS Calcium [Mass/Vol] 9.1 mg/dL Invalid Interpretation Code 8.4 - 10.1 mg/dL ADM SS Chloride [Moles/Vol] 102 mmol/L Invalid Interpretation Code 98 - 110 mEq/L ADM SS CO2 [Moles/Vol] 30 mmol/L Invalid Interpretation Code 22 - 32 mEq/L ADM SS Creatinine [Mass/Vol] 1.34 mg/dL Invalid Interpretation Code 0.60 - 1.40 mg/dL AH ADM SS Globulin (S) [Mass/Vol] 4.0 G/dL Invalid Interpretation Code 1.5 - 3.8 G/dL ADM SS Glucose [Mass/Vol] 105 mg/dL Invalid Interpretation Code 70 - 110 mg/dL ADM SS LDH [Catalytic activity/Vol] 205 U/L Invalid Interpretation Code 120 - 246 U/L ADM SS Potassium [Moles/Vol] 4.1 mmol/L Invalid Interpretation Code 3.5 - 5.0 mEq/L ADM SS Protein [Mass/Vol] 6.9 G/dL Invalid Interpretation Code 6.0 - 8.5 G/dL ADM SS Sodium [Moles/Vol] 138 mmol/L Invalid Interpretation Code 136 - 145 mEq/L ADM SS Urea nitrogen [Mass/Vol] 14.0 mg/dL Invalid Interpretation Code 8.0 - 22.0 mg/dL ADM SS Urea nitrogen/Creatinine [Mass ratio] 10.4 ratio Invalid Interpretation Code 10.0 - 22.0 ratio AH ADM SS LABORATORYOrdered By: SYSTEM SYSTEM on 03-17-2021 Basophils (Bld) [#/Vol] 0.10 103/mcL Invalid Interpretation Code 0.00 - 0.27 10^3/mcL AH Remisol SS Basophils/100 WBC (Bld) 1.1 % Invalid Interpretation Code 0.0 - 2.5 % AH Remisol SS Eosinophils (Bld) [#/Vol] 0.40 103/mcL Invalid Interpretation Code 0.00 - 0.65 10^3/mcL AH Remisol SS Eosinophils/100 WBC (Bld) 6.6 % Invalid Interpretation Code 0.0 - 6.0 % AH Remisol SS Erythrocyte distribution width (RBC) [Ratio] 15.0 % Invalid Interpretation Code 11.5 - 15.5 % AH Remisol SS GFR/1.73 sq M.predicted among blacks MDRD (S/P/Bld) [Vol rate/Area] ml/min/1.73sqm Invalid Interpretation Code AH ADM SS GFR/1.73 sq M.predicted among non-blacks MDRD (S/P/Bld) [Vol rate/Area] 59 ml/min/1.73sqm Invalid Interpretation Code AH ADM SS Hematocrit (Bld) [Volume fraction] 44.3 % Invalid Interpretation Code 40.0 - 52.0 % AH Remisol SS Hemoglobin (Bld) [Mass/Vol] 14.8 G/dL Invalid Interpretation Code 13.0 - 17.5 G/dL AH Remisol SS Lymphocytes (Bld) [#/Vol] 1.30 103/mcL Invalid Interpretation Code 0.90 - 4.32 10^3/mcL AH Remisol SS Lymphocytes/100 WBC (Bld) 20.6 % Invalid Interpretation Code 20.0 - 40.0 % AH Remisol SS MCH (RBC) [Entitic mass] 33.1 pg Invalid Interpretation Code 27.0 - 33.0 pg AH Remisol SS MCHC (RBC) [Mass/Vol] 33.3 G/dL Invalid Interpretation Code 32.0 - 36.0 G/dL AH Remisol SS MCV (RBC) [Entitic vol] 99.3 fL Invalid Interpretation Code 81.0 - 100.0 fL AH Remisol SS Monocytes (Bld) [#/Vol] 0.50 103/mcL Invalid Interpretation Code 0.09 - 1.40 10^3/mcL AH Remisol SS Monocytes/100 WBC (Bld) 7.9 % Invalid Interpretation Code 2.0 - 13.0 % AH Remisol SS Neutrophils (Bld) [#/Vol] 3.90 103/mcL Invalid Interpretation Code 2.25 - 8.10 10^3/mcL AH Remisol SS Neutrophils/100 WBC (Bld) 63.8 % Invalid Interpretation Code 50.0 - 75.0 % AH Remisol SS Platelet mean volume (Bld) [Entitic vol] 6.5 fL Invalid Interpretation Code 6.4 - 10.5 fL AH Remisol SS Platelets (Bld) [#/Vol] 216 103/mcL Invalid Interpretation Code 150 - 450 10^3/mcL AH Remisol SS RBC (Bld) [#/Vol] 4.47 106/mcL Invalid Interpretation Code 4.50 - 6.00 10^6/mcL AH Remisol SS WBC (Bld) [#/Vol] 6.10 103/mcL Invalid Interpretation Code 4.50 - 10.80 10^3/mcL AH Remisol SS LABORATORYOrdered By: Tim Lee on 03-17-2021 Free T3 [Mass/Vol] 3.36 mcg/mL Invalid Interpretation Code 2.30 - 4.20 mcg/mL Chemistry S Free T4 [Mass/Vol] 1.06 mcg/dL Invalid Interpretation Code 0.89 - 1.76 mcg/dL Chemistry S TSH Qn 7.291 mIU/mL Invalid Interpretation Code 0.550 - 4.780 mIU/mL AH Chemistry S LABORATORYOrdered By: SYSTEM SYSTEM on 01-27-2021 Albumin [Mass/Vol] 2.9 G/dL Invalid Interpretation Code 3.2 - 4.8 G/dL AH ADM SS Albumin/Globulin [Mass ratio] 0.7 {ratio} Invalid Interpretation Code 0.9 - 1.6 ratio AH ADM SS ALP [Catalytic activity/Vol] 87 U/L Invalid Interpretation Code 38 - 126 U/L AH ADM SS ALT [Catalytic activity/Vol] 23 U/L Invalid Interpretation Code 12 - 55 U/L AH ADM SS AST [Catalytic activity/Vol] 28 U/L Invalid Interpretation Code 8 - 34 U/L AH ADM SS Base excess Calc (BldMV) [Moles/Vol] 5.0 mEq/L Invalid Interpretation Code 4.0 - 15.0 mEq/L AH ADM SS Basophils (Bld) [#/Vol] 0.10 103/mcL Invalid Interpretation Code 0.00 - 0.27 10^3/mcL AH Remisol SS Basophils/100 WBC (Bld) 1.2 % Invalid Interpretation Code 0.0 - 2.5 % AH Remisol SS Bilirubin [Mass/Vol] 0.4 mg/dL Invalid Interpretation Code 0.2 - 1.2 mg/dL AH ADM SS Calcium [Mass/Vol] 8.7 mg/dL Invalid Interpretation Code 8.4 - 10.1 mg/dL AH ADM SS Chloride [Moles/Vol] 104 mmol/L Invalid Interpretation Code 98 - 110 mEq/L AH ADM SS CO2 [Moles/Vol] 32 mmol/L Invalid Interpretation Code 22 - 32 mEq/L AH ADM SS Creatinine [Mass/Vol] 1.17 mg/dL Invalid Interpretation Code 0.60 - 1.40 mg/dL AH ADM SS Eosinophils (Bld) [#/Vol] 0.60 103/mcL Invalid Interpretation Code 0.00 - 0.65 10^3/mcL AH Remisol SS Eosinophils/100 WBC (Bld) 7.5 % Invalid Interpretation Code 0.0 - 6.0 % AH Remisol SS Erythrocyte distribution width (RBC) [Ratio] 15.0 % Invalid Interpretation Code 11.5 - 15.5 % AH Remisol SS GFR/1.73 sq M.predicted among blacks MDRD (S/P/Bld) [Vol rate/Area] ml/min/1.73sqm Invalid Interpretation Code AH ADM SS GFR/1.73 sq M.predicted among non-blacks MDRD (S/P/Bld) [Vol rate/Area] ml/min/1.73sqm Invalid Interpretation Code ADM SS Globulin (S) [Mass/Vol] 3.9 G/dL Invalid Interpretation Code 1.5 - 3.8 G/dL AH ADM SS Glucose [Mass/Vol] 114 mg/dL Invalid Interpretation Code 70 - 110 mg/dL AH ADM SS Hematocrit (Bld) [Volume fraction] 47.9 % Invalid Interpretation Code 40.0 - 52.0 % AH Remisol SS Hemoglobin (Bld) [Mass/Vol] 15.8 G/dL Invalid Interpretation Code 13.0 - 17.5 G/dL AH Remisol SS LDH [Catalytic activity/Vol] 177 U/L Invalid Interpretation Code 120 - 246 U/L AH ADM SS Lymphocytes (Bld) [#/Vol] 1.30 103/mcL Invalid Interpretation Code 0.90 - 4.32 10^3/mcL AH Remisol SS Lymphocytes/100 WBC (Bld) 17.2 % Invalid Interpretation Code 20.0 - 40.0 % AH Remisol SS MCH (RBC) [Entitic mass] 33.0 pg Invalid Interpretation Code 27.0 - 33.0 pg AH Remisol SS MCHC (RBC) [Mass/Vol] 33.0 G/dL Invalid Interpretation Code 32.0 - 36.0 G/dL AH Remisol SS MCV (RBC) [Entitic vol] 100.1 fL Invalid Interpretation Code 81.0 - 100.0 fL AH Remisol SS Monocytes (Bld) [#/Vol] 0.50 103/mcL Invalid Interpretation Code 0.09 - 1.40 10^3/mcL AH Remisol SS Monocytes/100 WBC (Bld) 6.9 % Invalid Interpretation Code 2.0 - 13.0 % AH Remisol SS Neutrophils (Bld) [#/Vol] 5.30 103/mcL Invalid Interpretation Code 2.25 - 8.10 10^3/mcL AH Remisol SS Neutrophils/100 WBC (Bld) 67.2 % Invalid Interpretation Code 50.0 - 75.0 % AH Remisol SS Platelet mean volume (Bld) [Entitic vol] 7.0 fL Invalid Interpretation Code 6.4 - 10.5 fL AH Remisol SS Platelets (Bld) [#/Vol] 262 103/mcL Invalid Interpretation Code 150 - 450 10^3/mcL AH Remisol SS Potassium [Moles/Vol] 4.5 mmol/L Invalid Interpretation Code 3.5 - 5.0 mEq/L AH ADM SS Protein [Mass/Vol] 6.8 G/dL Invalid Interpretation Code 6.0 - 8.5 G/dL AH ADM SS RBC (Bld) [#/Vol] 4.79 106/mcL Invalid Interpretation Code 4.50 - 6.00 10^6/mcL AH Remisol SS Sodium [Moles/Vol] 141 mmol/L Invalid Interpretation Code 136 - 145 mEq/L AH ADM SS Urea nitrogen [Mass/Vol] 12.0 mg/dL Invalid Interpretation Code 8.0 - 22.0 mg/dL AH ADM SS Urea nitrogen/Creatinine [Mass ratio] 10.3 ratio Invalid Interpretation Code 10.0 - 22.0 ratio AH ADM SS WBC (Bld) [#/Vol] 7.80 103/mcL Invalid Interpretation Code 4.50 - 10.80 10^3/mcL AH Remisol SS Vital Signs Date Time Vital Sign Value Performing Clinician Facility 11-25-2024 16:54-0400 Blood Pressure Location DONNA MOCK MD [facility] 11-25-2024 16:54-0400 Blood Pressure Method DONNA MOCK MD [facility] 11-25-2024 16:54-0400 Body temperature 96.98 [degF] DONNA MOCK MD [facility] 11-25-2024 16:54-0400 Body weight 122.7 kg DONNA MOCK MD [facility] 11-25-2024 16:54-0400 Diastolic Blood Pressure Non-Invasive 90 mm[Hg] DONNA MOCK MD [facility] 11-25-2024 16:54-0400 Heart rate 97 /min DONNA MOCK MD [facility] 11-25-2024 16:54-0400 Respiratory rate 16 /min DONNA MOCK MD [facility] 11-25-2024 16:54-0400 Systolic Blood Pressure Non-Invasive 126 mm[Hg] DONNA MOCK MD [facility] 11-19-2024 11:00-0400 Diastolic Blood Pressure Non-Invasive 77 mm[Hg] DR BHAVIK TRIANA MD [facility] 11-19-2024 11:00-0400 Heart rate 65 /min DR BHAVIK TRIANA MD [facility] 11-19-2024 11:00-0400 Reason For Taking VItal Signs DR BHAVIK TRIANA MD [facility] 11-19-2024 11:00-0400 Systolic Blood Pressure Non-Invasive 145 mm[Hg] DR BHAVIK TRIANA MD [facility] 11-19-2024 09:58-0400 Respiratory rate 18 /min DR BHAVIK TRIANA MD [facility] 11-19-2024 09:57-0400 Body height 172.[address] BHAVIK TRIANA MD [facility] 11-19-2024 09:57-0400 Body weight 43.99 kg/m2 DR BHAVIK TRIANA MD [facility] 11-19-2024 09:57-0400 Body weight 131.[address] BHAVIK TRIANA MD [facility] 11-19-2024 09:32-0400 Body temperature 97.52 [degF] DR BHAVIK TRIANA MD [facility] 11-19-2024 09:32-0400 Diastolic Blood Pressure Non-Invasive 78 mm[Hg] DR BHAVIK TRIANA MD [facility] 11-19-2024 09:32-0400 Heart rate 66 /min DR BHAVIK TRIANA MD [facility] 11-19-2024 09:32-0400 Systolic Blood Pressure Non-Invasive 144 mm[Hg] DR BHAVIK TRIANA MD [facility] 11-19-2024 08:27-0400 Body weight 131.[address] BHAVIK TRIANA MD [facility] 06-05-2024 14:02-0400 Diastolic Blood Pressure Non-Invasive 60 mm[Hg] [employer]IST [facility] 06-05-2024 14:02-0400 Heart rate 64 /min [employer] PROCESSING [employer]IST [facility] 06-05-2024 14:02-0400 Systolic Blood Pressure Non-Invasive 98 mm[Hg] [employer] E[employer] MON[employer] PROCESSING [employer]IST [facility] 06-05-2024 12:53-0400 Body height 172.2 cm [employer] E[employer] MON[employer] PROCESSING SPECIALIST [facility] 06-05-2024 12:53-0400 Body weight 134.3 kg [employer] E[employer] MON[employer] PROCESSING [employer]IST [facility] 06-05-2024 12:53-0400 Body weight 45.29 kg/m2 [employer] PROCESSING [employer]IST [facility] 06-05-2024 12:39-0400 Body temperature 97.7 [degF] [employer] E[employer] MON[employer] PROCESSING SPECIALIST [facility] 06-05-2024 12:39-0400 Diastolic Blood Pressure Non-Invasive 72 mm[Hg] [employer] EKG MON[employer] PROCESSING SPECIALIST [facility] 06-05-2024 12:39-0400 Heart rate 66 /min [employer] EKG MON[employer]-WORD PROCESSING SPECIALIST [facility] 06-05-2024 12:39-0400 Systolic Blood Pressure Non-Invasive 105 mm[Hg] EZEQUIEL [employer] EKG MONITOR-WORD PROCESSING SPECIALIST [facility] 06-05-2024 10:14-0400 Body weight 134.3 kg EZEQUIEL [employer] EKG MON[employer]-WORD PROCESSING SPECIALIST [facility] 04-30-2024 14:35-0400 Respiratory rate 18 /min DR BHAVIK TRIANA MD [facility] 04-30-2024 14:34-0400 Body height 172.[address] BHAVIK TRIANA MD [facility] 04-30-2024 14:34-0400 Body weight 132.[address] BHAVIK TRIANA MD [facility] 04-30-2024 14:34-0400 Body weight 44.78 kg/m2 DR BHAVIK TRIANA MD [facility] 04-30-2024 14:31-0400 Blood Pressure Cuff Size DR BHAVIK TRIANA MD [facility] 04-30-2024 14:31-[address] BHAVIK TRIANA MD [facility] 04-30-2024 14:31-[address] BHAVIK TRIANA MD [facility] 04-30-2024 14:31-0400 Body temperature 97.34 [degF] DR BHAVIK TRIANA MD [facility] 04-30-2024 14:31-0400 Diastolic Blood Pressure Non-Invasive 71 mm[Hg] DR BHAVIK TRIANA MD [facility] 04-30-2024 14:31-0400 Heart rate 68 /min DR BHAVIK TRIANA MD [facility] 04-30-2024 14:31-0400 Systolic Blood Pressure Non-Invasive 124 mm[Hg] DR BHAVIK TRIANA MD [facility] 04-30-2024 12:56-0400 Body weight 132.[address] BHAVIK TRIANA MD [facility] 04-02-2024 15:15-0500 Body height 172 cm [employer] E[employer] MON[employer] PROCESSING [employer]IST [facility] 04-02-2024 15:15-0500 Body weight 138.2 kg [employer] E[employer]IST [facility] 04-02-2024 15:15-0500 Body weight 46.71 kg/m2 [employer] E[employer] PROCESS[employer]IST [facility] 04-02-2024 15:14-0500 Diastolic Blood Pressure Non-Invasive 59 mm[Hg] [employer] EKG MON[employer] PROCESSING [employer]IST [facility] 04-02-2024 15:14-0500 Heart rate 62 /min [employer] EKG MON[employer] PROCESSING [employer]IST [facility] 04-02-2024 15:14-0500 Systolic Blood Pressure Non-Invasive 116 mm[Hg] [employer] EKG MON[employer] PROCESSING SPECIALIST [facility] 04-02-2024 14:13-0500 Blood Pressure Cuff Size [employer] EKG MON[employer] PROCESSING [employer]IST [facility] 04-02-2024 14:13-0500 Blood Pressure Location [employer] EKG [employer] PROCESSING [employer]IST [facility] 04-02-2024 14:13-0500 Blood Pressure Method [employer] EKG [employer] PROCESSING [employer]IST [facility] 04-02-2024 14:13-0500 Body temperature 97.7 [degF] [employer] EKG MON[employer] PROCESSING [employer]IST [facility] 04-02-2024 14:13-0500 Diastolic Blood Pressure Non-Invasive 61 mm[Hg] [employer] EKG MON[employer] PROCESSING SPECIALIST [facility] 04-02-2024 14:13-0500 Heart rate 67 /min [employer] EKG [employer] PROCESSING [employer]IST [facility] 04-02-2024 14:13-0500 Systolic Blood Pressure Non-Invasive 116 mm[Hg] [employer] EKG MON[employer] PROCESSING [employer]IST [facility] 04-02-2024 11:06-0500 Body weight 138.2 kg [employer] EKG MON[employer] PROCESSING [employer]IST [facility] 03-04-2024 14:16-0500 Diastolic Blood Pressure Non-Invasive 51 mm[Hg] DR BHAVIK TRIANA MD [facility] 03-04-2024 14:16-0500 Heart rate 67 /min DR BHAVIK TRIANA MD [facility] 03-04-2024 14:16-0500 Systolic Blood Pressure Non-Invasive 109 mm[Hg] DR BHAVIK TRIANA MD [facility] 03-04-2024 13:37-0500 Body height 172.[address] BHAVIK TRIANA MD [facility] 03-04-2024 13:37-0500 Body weight 135.[address] BHAVIK TRIANA MD [facility] 03-04-2024 13:37-0500 Body weight 45.5 kg/m2 DR BHAVIK TRIANA MD [address] [place] [address] 03-04-2024 13:34-0500 Body temperature 98.24 [degF] DR BHAVIK TRIANA MD [address] [place] [address] 03-04-2024 13:34-0500 Diastolic Blood Pressure Non-Invasive 62 mm[Hg] DR BHAVIK TRIANA MD [address] [place] [address] 03-04-2024 13:34-0500 Heart rate 70 /min DR BHAVIK TRIANA MD [address] 03-04-2024 13:34-0500 Systolic Blood Pressure Non-Invasive 120 mm[Hg] DR BHAVIK TRIANA MD [facility] 03-04-2024 11:53-0500 Body weight 135.[address] BHAVIK TRIANA MD [facility] 02-05-2024 15:26-0500 Diastolic Blood Pressure Non-Invasive 62 mm[Hg] [employer] EKG MON[employer] PROCESSING SPECIALIST [facility] 02-05-2024 15:26-0500 Heart rate 63 /min [employer] EKG MON[employer] PROCESSING SPECIALIST [facility] 02-05-2024 15:26-0500 Systolic Blood Pressure Non-Invasive 109 mm[Hg] [employer]IEL [employer]AL EKG MONIT[employer]-WORD PROCESSING SPECIALIST [facility] 02-05-2024 13:54-0500 Body height 172.7 cm [employer] EKG MON[employer]-WORD PROCESSING SPECIALIST [facility] 02-05-2024 13:54-0500 Body weight 139.4 kg [employer] EKG MONIT[employer]-WORD PROCESSING SPECIALIST [facility] 02-05-2024 13:54-0500 Body weight 46.74 kg/m2 [employer] PROCESSING [employer]IST [facility] 02-05-2024 13:44-0500 Body temperature 97.52 [degF] [employer] MON[employer]-WORD PROCESSING SPECIALIST [facility] 02-05-2024 13:44-0500 Diastolic Blood Pressure Non-Invasive 65 mm[Hg] [employer] MON[employer]-WORD PROCESSING SPECIALIST [facility] 02-05-2024 13:44-0500 Heart rate 65 /min [employer] MON[employer]-WORD PROCESSING SPECIALIST [facility] 02-05-2024 13:44-0500 Systolic Blood Pressure Non-Invasive 118 mm[Hg] [employer] MON[employer]-WORD PROCESSING SPECIALIST [facility] 02-05-2024 09:26-0500 Body weight 139.4 kg [employer] EKG MONITOR-WORD PROCESSING SPECIALIST [facility] 01-25-2024 00:59-0500 Blood Pressure Location NORMA GARCIA DO [facility] 01-25-2024 00:59-0500 Blood Pressure Method NORMA GARCIA DO [facility] 01-25-2024 00:59-0500 Body height 172.7 cm NORMA GARCIA DO [facility] 01-25-2024 00:59-0500 Body temperature 98.06 [degF] NORMA GARCIA DO [facility] 01-25-2024 00:59-0500 Body weight 136.4 kg NORMA GARCIA DO [facility] 01-25-2024 00:59-0500 Diastolic Blood Pressure Non-Invasive 54 mm[Hg] NORMA GARCIA DO [facility] 01-25-2024 00:59-0500 Heart rate 78 /min NORMA BOYERT DO [facility] 01-25-2024 00:59-0500 Respiratory rate 16 /min [facility] 01-25-2024 00:59-0500 Systolic Blood Pressure Non-Invasive 111 mm[Hg] [facility] 12-21-2023 10:52-0500 Diastolic Blood Pressure Non-Invasive 65 mm[Hg] [employer]ZEQU[employer]EL [employer]AL EKG MONITOR-WORD PROCESSING SPECIALIST [facility] 12-21-2023 10:52-0500 Heart rate 80 /min [employer]QU[employer] EKG MONIT[employer]-WORD PROCESSING SPECIALIST [facility] 12-21-2023 10:52-0500 Respiratory rate 16 /min [employer] EKG MONITOR-WORD PROCESSING SPECIALIST [facility] 12-21-2023 10:52-0500 Systolic Blood Pressure Non-Invasive 120 mm[Hg] [employer] EKG MONITOR-WORD PROCESSING SPECIALIST [facility] 12-21-2023 09:59-0500 Body height 175.3 cm [employer] EKG MONITOR-WORD PROCESSING SPECIALIST [facility] 12-21-2023 09:59-0500 Body weight 139.4 kg [employer] EKG MONIT[employer]-WORD PROCESSING SPECIALIST [facility] 12-21-2023 09:59-0500 Body weight 45.36 kg/m2 [employer] EKG MONIT[employer]-WORD PROCESSING SPECIALIST [facility] 12-21-2023 09:56-0500 Body temperature 98.24 [degF] [employer] EKG MONIT[employer]-WORD PROCESSING SPECIALIST [facility] 12-21-2023 09:56-0500 Diastolic Blood Pressure Non-Invasive 65 mm[Hg] EZEQUIEL LEAL EKG MONITOR-WORD PROCESSING SPECIALIST [facility] 12-21-2023 09:56-0500 Heart rate 66 /min [employer] EKG MONITOR-WORD PROCESSING SPECIALIST [facility] 12-21-2023 09:56-0500 Systolic Blood Pressure Non-Invasive 118 mm[Hg] EZEQUIEL LEAL EKG MONITOR-WORD PROCESSING SPECIALIST [facility] 12-21-2023 09:05-0500 Body weight 139.4 kg [employer] EKG MONITOR-WORD PROCESSING SPECIALIST [facility] 11-16-2023 13:32-0400 Diastolic Blood Pressure Non-Invasive 58 mm[Hg] DR BHAVIK TRIANA MD [facility] 11-16-2023 13:32-0400 Heart rate 60 /min DR BHAVIK TRIANA MD [facility] 11-16-2023 13:32-0400 Reason For Taking VItal Signs DR BHAVIK TRIANA MD [facility] 11-16-2023 13:32-0400 Respiratory rate 20 /min DR BHAVIK TRIANA MD [facility] 11-16-2023 13:32-0400 Systolic Blood Pressure Non-Invasive 109 mm[Hg] DR BHAVIK TRIANA MD [facility] 11-16-2023 11:33-0400 Body height 172.[address] BHAVIK TRIANA MD [facility] 11-16-2023 11:33-0400 Body weight [address] BHAVIK TRIANA MD [facility] 11-16-2023 11:33-0400 Body weight 47.61 kg/m2 DR BHAVIK TRIANA MD [facility] 11-16-2023 11:32-0400 Body temperature 97.34 [degF] DR BHAVIK TRIANA MD [facility] 11-16-2023 11:32-0400 Diastolic Blood Pressure Non-Invasive 67 mm[Hg] DR BHAVIK TRIANA MD [facility] 11-16-2023 11:32-0400 Heart rate 61 /min DR BHAVIK TRIANA MD [facility] 11-16-2023 11:32-0400 Reason For Taking VItal Signs DR BHAVIK TRIANA MD [address] [place] [address] 11-16-2023 11:32-0400 Respiratory rate 20 /min DR BHAVIK TRIANA MD [address] [place] [address] 11-16-2023 11:32-0400 Systolic Blood Pressure Non-Invasive 100 mm[Hg] DR BHAVIK TRIANA MD [facility] 11-16-2023 10:23-0400 Body weight [address] BHAVIK TRIANA MD [address] [place] [address] 10-31-2023 09:45-0400 Diastolic Blood Pressure Non-Invasive 52 mm[Hg] NOAH SEPULVEDA MD [address] 10-31-2023 09:45-0400 Heart rate 60 /min NOAH SEPULVEDA MD [address] 10-31-2023 09:45-0400 Systolic Blood Pressure Non-Invasive 98 mm[Hg] NOAH SEPULVEDA MD [facility] 10-31-2023 09:26-0400 Diastolic Blood Pressure Non-Invasive 62 mm[Hg] NOAH SEPULVEDA MD [facility] 10-31-2023 09:26-0400 Heart rate 60 /min NOAH SEPULVEDA MD [facility] 10-31-2023 09:26-0400 Systolic Blood Pressure Non-Invasive 112 mm[Hg] NOAH SEPULVEDA MD [facility] 10-31-2023 09:00-0400 Diastolic Blood Pressure Non-Invasive 64 mm[Hg] NOAH SEPULVEDA MD [facility] 10-31-2023 09:00-0400 Heart rate 57 /min NOAH SEPULVEDA MD [facility] 10-31-2023 09:00-0400 Systolic Blood Pressure Non-Invasive 111 mm[Hg] NOAH SEPULVEDA MD [address] [place] [address] 10-31-2023 06:10-0400 Blood Pressure Location NOAH SEPULVEDA MD [address] [place] [address] 10-31-2023 06:10-0400 Blood Pressure Method NOAH SEPULVEDA MD [address] [place] [address] 10-31-2023 06:10-0400 Body height 172.7 cm NOAH SEPULVEDA MD [address] [place] [address] 10-31-2023 06:10-0400 Body temperature 97.7 [degF] NOAH SEPULVEDA MD [address] 10-31-2023 06:10-0400 Body weight 150.5 kg NOAH SEPULVEDA MD [address] 10-31-2023 06:10-0400 Respiratory rate 16 /min NOAH SEPULVEDA MD [facility] 10-26-2023 14:11-0400 Body height 172.2 cm NORMA GARCIA DO [facility] 10-26-2023 14:11-0400 Body temperature 96.8 [degF] NORMA GARCIA DO [facility] 10-26-2023 14:11-0400 Body weight 154.2 kg NORMA GARCIA DO [facility] 10-26-2023 14:11-0400 Diastolic Blood Pressure Non-Invasive 78 mm[Hg] NORMA GARCIA DO [facility] 10-26-2023 14:11-0400 Heart rate 74 /min NORAM GARCIA DO [facility] 10-26-2023 14:11-0400 Respiratory rate 18 /min NORMA GARCIA DO [facility] 10-26-2023 14:11-0400 Systolic Blood Pressure Non-Invasive 130 mm[Hg] NORMA GARCIA DO [facility] 10-19-2023 15:26-0400 Diastolic Blood Pressure Non-Invasive 66 mm[Hg] DR BHAVIK TRIANA MD [facility] 10-19-2023 15:26-0400 Heart rate 65 /min DR BHAVIK TRIANA MD [address] 10-19-2023 15:26-0400 Systolic Blood Pressure Non-Invasive 109 mm[Hg] DR BHAVIK TRIANA MD [facility] 10-19-2023 14:41-0400 Body temperature 98.06 [degF] DR BHAVIK TRIANA MD [address] [place] [address] 10-19-2023 14:41-0400 Diastolic Blood Pressure Non-Invasive 57 mm[Hg] DR BHAVIK TRIANA MD [facility] 10-19-2023 14:41-0400 Heart rate 65 /min DR BHAVIK TRIANA MD [address] [place] [address] 10-19-2023 14:41-0400 Respiratory rate 20 /min DR BHAVIK TRIANA MD [address] [place] [address] 10-19-2023 14:41-0400 Systolic Blood Pressure Non-Invasive 100 mm[Hg] DR BHAVIK TRIANA MD [address] [place] [address] 10-19-2023 14:31-0400 Body height 172.[address] BHAVIK TRIANA MD [address] [place] [address] 10-19-2023 14:31-0400 Body weight 153.[address] BHAVIK TRIANA MD [facility] 10-19-2023 14:31-0400 Body weight 51.33 kg/m2 DR BHAVIK TRIANA MD [facility] 10-19-2023 11:37-0400 Body weight 153.[address] BHAVIK TRIANA MD [facility] 09-25-2023 15:08-0400 Blood Pressure Cuff Size REGINA SANCHEZ MD [facility] 09-25-2023 15:08-0400 Blood Pressure Location REGINA SANCHEZ MD [address] [place] [address] 09-25-2023 15:08-0400 Blood Pressure Method REGINA SANCHEZ MD [address] [place] [address] 09-25-2023 15:08-0400 Body temperature 98.24 [degF] REGINA SANCHEZ MD [address] [place] [address] 09-25-2023 15:08-0400 Diastolic Blood Pressure Non-Invasive 85 mm[Hg] REGINA SANCHEZ MD [address] [place] [address] 09-25-2023 15:08-0400 Heart rate 64 /min REGINA SANCHEZ MD [address] [place] [address] 09-25-2023 15:08-0400 Reason For Taking VItal Signs REGINA SANCHEZ MD [facility] 09-25-2023 15:08-0400 Respiratory rate 18 /min REGINA SANCHEZ MD [facility] 09-25-2023 15:08-0400 Systolic Blood Pressure Non-Invasive 131 mm[Hg] REGINA SANCHEZ MD [facility] 09-25-2023 09:15-0400 Heart rate 56 /min REGINA SANCHEZ MD [facility] 09-25-2023 06:46-0400 Blood Pressure Cuff Size REGINA SANCHEZ MD [facility] 09-25-2023 06:46-0400 Blood Pressure Location REGINA SANCHEZ MD [address] [place] [address] 09-25-2023 06:46-0400 Blood Pressure Method REGINA SANCHEZ MD [address] 09-25-2023 06:46-0400 Diastolic Blood Pressure Non-Invasive 68 mm[Hg] REGINA SANCHEZ MD [address] [place] [address] 09-25-2023 06:46-0400 Heart rate 62 /min REGINA SANCHEZ MD [address] [place] [address] 09-25-2023 06:46-0400 Reason For Taking VItal Signs REGINA SANCHEZ MD [address] [place] [address] 09-25-2023 06:46-0400 Respiratory rate 18 /min REGINA SANCHEZ MD [address] [place] [address] 09-25-2023 06:46-0400 Systolic Blood Pressure Non-Invasive 138 mm[Hg] REGINA SANCHEZ MD [address] [place] [address] 09-24-2023 21:28-0400 Blood Pressure Cuff Size REGINA SANCHEZ MD [address] 09-24-2023 21:28-0400 Blood Pressure Location REGINA SANCHEZ MD [address] 09-24-2023 21:28-0400 Blood Pressure Method REGINA SANCHEZ MD [address] [place] [address] 09-24-2023 21:28-0400 Body temperature 97.52 [degF] REGINA SANCHEZ MD [address] [place] [address] 09-24-2023 21:28-0400 Diastolic Blood Pressure Non-Invasive 60 mm[Hg] REGINA SANCHEZ MD [address] 09-24-2023 21:28-0400 Heart rate 72 /min REGINA SANCHEZ MD [address] [place] [address] 09-24-2023 21:28-0400 Reason For Taking VItal Signs REGINA SANCHEZ MD [address] [place] [address] 09-24-2023 21:28-0400 Respiratory rate 17 /min REGINA SANCHEZ MD [address] [place] [address] 09-24-2023 21:28-0400 Systolic Blood Pressure Non-Invasive 121 mm[Hg] REGINA SANCHEZ MD [address] 09-24-2023 17:06-0400 Heart rate 74 /min REGINA SANCHEZ MD [address] [place] [address] 09-24-2023 14:37-0400 Body temperature 98.96 [degF] REGINA SANCHEZ MD [address] [place] [address] 09-24-2023 14:37-0400 Heart rate 62 /min REGINA SANCHEZ MD [address] [place] [address] 09-23-2023 08:43-0400 Body weight 163.7 kg REGINA SANCHEZ MD [address] [place] [address] 09-22-2023 15:27-0400 Heart rate 69 /min REGINA SANCHEZ MD [address] [place] [address] 09-22-2023 07:49-0400 Body weight 158.2 kg REGINA SANCHEZ MD [address] [place] [address] 09-22-2023 07:15-0400 Body temperature 96.62 [degF] REGINA SANCHEZ MD [address] [place] [address] 09-21-2023 23:17-0400 Heart rate 64 /min REGINA SANCHEZ MD [address] [place] [address] 09-21-2023 20:13-0400 Heart rate 72 /min REGINA SANCHEZ MD [address] [place] [address] 09-21-2023 18:03-0400 Body temperature 98.6 [degF] REGINA SANCHEZ MD [address] [place] [address] 09-21-2023 11:49-0400 SaO2% (BldA) [Mass fraction] 98.1 % REGINA SANCHEZ MD [facility] 09-21-2023 06:06-0400 Body weight 168.3 kg REGINA SANCHEZ MD [facility] 09-20-2023 06:59-0400 Mean blood pressure 99 mm[Hg] REGINA SANCHEZ MD [facility] 09-18-2023 16:39-0400 Body temperature 97.88 [degF] REGINA SANCHEZ MD [facility] 09-18-2023 16:18-0400 Body temperature 93.02 [degF] REGINA SANCHEZ MD [facility] 09-18-2023 02:04-0400 Body height 172.7 cm REGINA SANCHEZ MD [facility] 09-18-2023 02:04-0400 Body weight 64.78 kg/m2 REGINA SANCHEZ MD [facility] 09-17-2023 23:08-0400 Body temperature 97.52 [degF] MURALI MAGANA EKG MONITOR-WORD PROCESSING SPECIALIST [facility] 09-17-2023 23:08-0400 Diastolic Blood Pressure Non-Invasive 90 mm[Hg] MURALI MAGANA EKG MONITOR-WORD PROCESSING SPECIALIST [facility] 09-17-2023 23:08-0400 Heart rate 74 /min MURALI MAGANA EKG MONITOR-WORD PROCESSING SPECIALIST [facility] 09-17-2023 23:08-0400 Reason For Taking VItal Signs MURALI MAGANA EKG MONITOR-WORD PROCESSING SPECIALIST [facility] Comment on above: Result Comment: Patient being transferre d 09-17-2023 23:08-0400 Respiratory rate 20 /min MURALI MAGANA EKG MONITOR-WORD PROCESSING SPECIALIST [facility] 09-17-2023 23:08-0400 Systolic Blood Pressure Non-Invasive 160 mm[Hg] MURALI KAPPER EKG MONITOR-WORD PROCESSING SPECIALIST [facility] 09-17-2023 19:38-0400 Diastolic Blood Pressure Non-Invasive 92 mm[Hg] MURALI KAPPER EKG MONITOR-WORD PROCESSING SPECIALIST [facility] 09-17-2023 19:38-0400 Systolic Blood Pressure Non-Invasive 155 mm[Hg] MURALI KAPPER EKG MONITOR-WORD PROCESSING SPECIALIST [facility] 09-17-2023 19:03-0400 Body temperature 97.88 [degF] MURALI KAPPER EKG MONITOR-WORD PROCESSING SPECIALIST [facility] 09-17-2023 19:03-0400 Diastolic Blood Pressure Non-Invasive 92 mm[Hg] MURALI KAPPER EKG MONITOR-WORD PROCESSING SPECIALIST [facility] 09-17-2023 19:03-0400 Heart rate 64 /min MURALI KAPPER EKG MONITOR-WORD PROCESSING SPECIALIST [facility] 09-17-2023 19:03-0400 Reason For Taking VItal Signs MURALI KAPPER EKG MONITOR-WORD PROCESSING SPECIALIST [facility] 09-17-2023 19:03-0400 Respiratory rate 20 /min MURALI KAPPER EKG MONITOR-WORD PROCESSING SPECIALIST [facility] 09-17-2023 19:03-0400 Systolic Blood Pressure Non-Invasive 162 mm[Hg] MURALI KAPPER EKG MONITOR-WORD PROCESSING SPECIALIST [facility] 09-17-2023 16:45-0400 Heart rate 75 /min MURALI KAPPER EKG MONITOR-WORD PROCESSING SPECIALIST [facility] 09-17-2023 16:32-0400 Heart rate 82 /min MURALI KAPPER EKG MONITOR-WORD PROCESSING SPECIALIST [facility] 09-17-2023 16:31-0400 Body temperature 98.06 [degF] MURALI KAPPER EKG MONITOR-WORD PROCESSING SPECIALIST [facility] 09-17-2023 16:31-0400 Heart rate 70 /min MURALI KAPPER EKG MONITOR-WORD PROCESSING SPECIALIST [facility] 09-17-2023 16:31-0400 Reason For Taking VItal Signs MURALI MAGANA EKG MONITOR-WORD PROCESSING SPECIALIST [facility] 09-17-2023 16:31-0400 Respiratory rate 20 /min MURALI MOYER EKG MONITOR-WORD PROCESSING SPECIALIST [facility] 09-17-2023 08:30-0400 Heart rate 70 /min MURALI KAPPER EKG MONITOR-WORD PROCESSING SPECIALIST [facility] 09-16-2023 23:00-0400 Heart rate 64 /min MURALI KAPPER EKG MONITOR-WORD PROCESSING SPECIALIST [facility] 09-16-2023 18:13-0400 Body weight 193.2 kg MURALI KAPPER EKG MONITOR-WORD PROCESSING SPECIALIST [address] [place] [address] 09-14-2023 16:20-0400 Heart rate 66 /min MURALI KAPPER EKG MONITOR-WORD PROCESSING SPECIALIST [facility] 09-14-2023 10:30-0400 Heart rate 63 /min MURALI KAPPER EKG MONITOR-WORD PROCESSING SPECIALIST [facility] 09-14-2023 06:22-0400 Body temperature 97.52 [degF] MURALI KAPPER EKG MONITOR-WORD PROCESSING SPECIALIST [facility] 09-12-2023 15:31-0400 Body height 172.7 cm MURALI KAPPER EKG MONITOR-WORD PROCESSING SPECIALIST [facility] 09-12-2023 15:31-0400 Body weight 196.3 kg MURALI WINTERISABELA EKG MONITOR-WORD PROCESSING SPECIALIST [facility] 09-12-2023 15:31-0400 Body weight 65.82 kg/m2 MURALI CHINO EKG MONITOR-WORD PROCESSING SPECIALIST [facility] 08-31-2023 17:49-0400 Diastolic Blood Pressure Non-Invasive 88 mm[Hg] MARIO COCHRAN MD [facility] 08-31-2023 17:49-0400 Heart rate 70 /min MARIO COCHRAN MD [facility] 08-31-2023 17:49-0400 Respiratory rate 16 /min MARIO COCHRAN MD [facility] 08-31-2023 17:49-0400 Systolic Blood Pressure Non-Invasive 146 mm[Hg] MARIO COCHRAN MD [facility] 08-31-2023 14:50-0400 Body temperature 97.7 [degF] MARIO COCHRAN MD [facility] 08-31-2023 14:50-0400 Body weight 181.8 kg MARIO COCHRAN MD [facility] 08-31-2023 14:50-0400 Diastolic Blood Pressure Non-Invasive 100 mm[Hg] MARIO COCHRAN MD [facility] 08-31-2023 14:50-0400 Heart rate 68 /min MARIO COCHRAN MD [facility] 08-31-2023 14:50-0400 Respiratory rate 16 /min MARIO COCHRAN MD [facility] 08-31-2023 14:50-0400 Systolic Blood Pressure Non-Invasive 158 mm[Hg] MARIO COCHRAN MD [facility] 08-24-2023 16:45-0400 Diastolic Blood Pressure Non-Invasive 90 mm[Hg] DR BHAVIK TRIANA MD [facility] 08-24-2023 16:45-0400 Heart rate 66 /min DR BHAVIK TRIANA MD [facility] 08-24-2023 16:45-0400 Respiratory Rate - Anes 18 br/min DR BHAVIK TRIANA MD [facility] 08-24-2023 16:45-0400 Systolic Blood Pressure Non-Invasive 152 mm[Hg] DR BHAVIK TRIANA MD [facility] 08-24-2023 16:02-0400 Diastolic Blood Pressure Non-Invasive 83 mm[Hg] DR BHAVIK TRIANA MD [facility] 08-24-2023 16:02-0400 Heart rate 68 /min DR BHAVIK TRIANA MD [facility] 08-24-2023 16:02-0400 Systolic Blood Pressure Non-Invasive 161 mm[Hg] DR BHAVIK TRIANA MD [facility] 08-24-2023 16:01-0400 Body temperature 97.34 [degF] DR BHAVIK TRIANA MD [facility] 08-24-2023 16:01-0400 Respiratory rate 18 /min DR BHAVIK TRIANA MD [facility] 08-24-2023 15:59-0400 Body height [address] BHAVIK TRIANA MD [facility] 07-27-2023 13:32-0400 Body weight 183.[address] BHAVIK TRIANA MD [facility] 02-16-2023 13:02-0500 Diastolic Blood Pressure Non-Invasive 84 mm[Hg] DR BHAVIK TRIANA MD [facility] 02-16-2023 13:02-0500 Heart rate 63 /min DR BHAVIK TRIANA MD [address] [place] [address] 02-16-2023 13:02-0500 Respiratory rate 18 /min DR BHAVIK TRIANA MD [address] [place] [address] 02-16-2023 13:02-0500 Systolic Blood Pressure Non-Invasive 144 mm[Hg] DR BHAVIK TRIANA MD [address] [place] [address] 02-16-2023 12:04-0500 Respiratory rate 18 /min DR BHAVIK TRIANA MD [address] 02-16-2023 12:03-0500 Body height 172.[address] BHAVIK TRIANA MD [address] 02-16-2023 12:03-0500 Body weight 177.[address] BHAVIK TRIANA MD [address] [place] [address] 02-16-2023 12:03-0500 Body weight 59.38 kg/m2 DR BHAVIK TRIANA MD [address] 02-16-2023 11:59-0500 Body temperature 97.7 [degF] DR BHAVIK TRIANA MD [address] 02-16-2023 11:59-0500 Diastolic Blood Pressure Non-Invasive 87 mm[Hg] DR BHAVIK TRIANA MD [address] [place] [address] 02-16-2023 11:59-0500 Heart rate 66 /min DR BHAVIK TRIANA MD [address] [place] [address] 02-16-2023 11:59-0500 Systolic Blood Pressure Non-Invasive 176 mm[Hg] DR BHAVIK TRIANA MD [address] [place] [address] 02-16-2023 10:11-0500 Body weight 177.[address] BHAVIK TRIANA MD [address] [place] [address] 01-19-2023 12:10-0500 Diastolic Blood Pressure Non-Invasive 98 mm[Hg] DR BHAVIK TRIANA MD [address] [place] [address] 01-19-2023 12:10-0500 Heart rate 86 /min DR BHAVIK TRIANA MD [address] [place] [address] 01-19-2023 12:10-0500 Respiratory rate 18 /min DR BHAVIK TRIANA MD [address] [place] [address] 01-19-2023 12:10-0500 Systolic Blood Pressure Non-Invasive 187 mm[Hg] DR BHAVIK TRIANA MD [address] 01-19-2023 11:28-0500 Body height 172.[address] BHAVIK TRIANA MD [address] 01-19-2023 11:28-0500 Body weight 169.[address] BHAVIK TRIANA MD [address] 01-19-2023 11:28-0500 Body weight 56.9 kg/m2 DR BHAVIK TRIANA MD [address] 01-19-2023 11:19-0500 Body temperature 97.52 [degF] DR BHAVIK TRIANA MD [address] 01-19-2023 11:19-0500 Diastolic Blood Pressure Non-Invasive 86 mm[Hg] DR BHAVIK TRIANA MD [address] [place] [address] 01-19-2023 11:19-0500 Heart rate 70 /min DR BHAVIK TRIANA MD [address] 01-19-2023 11:19-0500 Reason For Taking VItal Signs DR BHAVIK TRIANA MD [address] [place] [address] 01-19-2023 11:19-0500 Respiratory rate 16 /min DR BHAVIK TRIANA MD [address] 01-19-2023 11:19-0500 Systolic Blood Pressure Non-Invasive 146 mm[Hg] DR BHAVIK TRIANA MD [facility] 01-19-2023 09:55-0500 Body weight 169.[address] BHAVIK TRIANA MD [facility] 11-24-2022 12:24-0400 Diastolic Blood Pressure Non-Invasive [address] BHAVIK TRIANA MD [facility] 11-24-2022 12:24-0400 Heart rate 64 /min DR BHAVIK TRIANA MD [facility] 11-24-2022 12:24-0400 Reason For Taking VItal Signs DR BHAVIK TRIANA MD [address] [place] [address] 11-24-2022 12:24-0400 Systolic Blood Pressure Non-Invasive [address] BHAVIK TRIANA MD [facility] 11-24-2022 11:41-0400 Body height 172.[address] BHAVIK TRIANA MD [address] [place] [address] 11-24-2022 11:41-0400 Body weight 169.[address] BHAVIK TRIANA MD [address] [place] [address] 11-24-2022 11:41-0400 Body weight 56.76 kg/m2 DR BHAVIK TRIANA MD [facility] 11-24-2022 11:25-0400 Body temperature 98.06 [degF] DR BHAVIK TRIANA MD [facility] 11-24-2022 11:25-0400 Diastolic Blood Pressure Non-Invasive [address] BHAVIK TRIANA MD [address] [place] [address] 11-24-2022 11:25-0400 Heart rate 67 /min DR BHAVIK TRIANA MD [facility] 11-24-2022 11:25-0400 Systolic Blood Pressure Non-Invasive [address] BHAVIK TRIANA MD [facility] 11-24-2022 11:25-0400 Reason For Taking VItal Signs DR BHAVIK TRIANA MD [facility] 11-24-2022 09:31-0400 Body weight 169.[address] BHAVIK TRIANA MD [facility] 10-27-2022 10:42-0400 Body temperature 97.34 [degF] DR BHAVIK TRIANA MD [facility] 10-27-2022 10:42-0400 Diastolic Blood Pressure Non-Invasive [address] BHAVIK TRIANA MD [facility] 10-27-2022 10:42-0400 Heart rate 63 /min DR BHAVIK TRIANA MD [address] [place] [address] 10-27-2022 10:42-0400 Systolic Blood Pressure Non-Invasive [address] BHAVIK TRIANA MD [address] [place] [address] 10-27-2022 10:35-0400 Body height [address] BHAVIK TRIANA MD [address] [place] [address] 10-27-2022 10:35-0400 Body weight 176.[address] BHAVIK TRIANA MD [facility] 10-27-2022 10:35-0400 Body weight 59.01 kg/m2 DR BHAVIK TRIANA MD [facility] 10-27-2022 09:45-0400 Body weight 176.[address] BHAVIK TRIANA MD [facility] 09-29-2022 11:10-0400 Body temperature 97.34 [degF] DR BHAVIK TRIANA MD [facility] 09-29-2022 11:01-0400 Diastolic Blood Pressure Non-Invasive [address] BHAVIK TRIANA MD [facility] 09-29-2022 11:01-0400 Heart rate 64 /min DR BHAVIK TRIANA MD [facility] 09-29-2022 11:01-0400 Systolic Blood Pressure Non-Invasive [address] BHAVIK TRIANA MD [facility] 09-29-2022 10:52-0400 Body height 172.[address] BHAVIK TRIANA MD [facility] 09-29-2022 10:52-0400 Body weight 169.[address] BHAVIK TRIANA MD [facility] 09-29-2022 10:52-0400 Body weight 56.73 kg/m2 DR BHAVIK TRIANA MD [facility] 09-29-2022 09:08-0400 Body weight 169.[address] BHAVIK TRIANA MD [facility] 09-05-2022 09:58-0400 Body height 172.72 cm Prosper A Loki Work Phone: GP-Bedfgatsih-Dbh ma Work Phone: 09-05-2022 09:58-0400 Body mass index (BMI) [Ratio] 54.74 kg/m2 Prosper A Loki Work Phone: ZA-Pvvxeardac-Ckt ma Work Phone: 09-05-2022 09:58-0400 Body surface area Derived from formula 2.62 m2 Prosper A Loki Work Phone: VH-Xwwvqhxlcg-Abd ma Work Phone: 09-05-2022 09:58-0400 Body weight 163.31 kg Prosper A Loki Work Phone: EG-Bntjfupqxz-Ytu ma Work Phone: 09-05-2022 09:58-0400 Diastolic blood pressure 58 mm[Hg] Prosper A Loki Work Phone: QY-Nwegomnhow-Xzz ma Work Phone: 09-05-2022 09:58-0400 Heart rate 64 /min Prosper A Loki Work Phone: ES-Pbbniwrhvb-Yxv ma Work Phone: 09-05-2022 09:58-0400 SaO2% (BldA) [Mass fraction] 93 % Prosper A Loki Work Phone: UH-Uyruaddyxv-Aqa jb Work Phone: 09-05-2022 09:58-0400 Systolic blood pressure 122 mm[Hg] Prosper A Loki Work Phone: VI-Xtifqolfih-Rvl ma Work Phone: 08-29-2022 11:44-0400 Body temperature 98.6 [degF] Prosper Loki Other Phone: [facility] 08-29-2022 11:44-0400 Diastolic blood pressure 68 mm[Hg] Prosper Loki Other Phone: [facility] 08-29-2022 11:44-0400 Heart rate 67 /min Prosper Loki Other Phone: [facility] 08-29-2022 11:44-0400 Respiratory rate 18 /min Prosper Loki Other Phone: [facility] 08-29-2022 11:44-0400 SaO2% (BldA) [Mass fraction] 93 % Prosper Loki Other Phone: [facility] 08-29-2022 11:44-0400 Systolic blood pressure 106 mm[Hg] Prosper Loki Other Phone: [facility] 08-29-2022 08:32-0400 Body weight 158.9 kg Prosper Loki Other Phone: [facility] 08-22-2022 08:38-0400 Body temperature 37.0 {degrees_C} Prosper A Loki Work Phone: BP-Blapfpydrn-Shp pr Work Phone: Comment on above: NOTE: PATIENT RESULTS ARE NOT CORRECTED FOR TEMPERATURE. 08-22-2022 08:38-0400 SaO2% (BldA) [Mass fraction] 97 % Prosper A Loki Work Phone: YG-Unsyfpkxrj-Blu ma Work Phone: 08-22-2022 03:32-0400 Body temperature 37.0 {degrees_C} Prosper A Loki Work Phone: TN-Aroenyzdow-Ict ma Work Phone: Comment on above: NOTE: PATIENT RESULTS ARE NOT CORRECTED FOR TEMPERATURE. 08-22-2022 03:32-0400 SaO2% (BldA) [Mass fraction] 100 % Prosper A Loki Work Phone: ND-Lmtwpfhofu-Kwm ma Work Phone: 08-21-2022 18:12-0400 Body temperature 37.0 {degrees_C} Prosper A Loki Work Phone: TU-Ygizmphylv-Ffx ma Work Phone: Comment on above: NOTE: PATIENT RESULTS ARE NOT CORRECTED FOR TEMPERATURE. 08-21-2022 18:12-0400 SaO2% (BldA) [Mass fraction] 97 % Prosper A Loki Work Phone: XJ-Ktacekyqyq-Cyi ma Work Phone: 08-21-2022 11:24-0400 Body temperature 37.0 {degrees_C} Prosper A Loki Work Phone: ZX-Jkyjawowbe-Nwi ma Work Phone: Comment on above: NOTE: PATIENT RESULTS ARE NOT CORRECTED FOR TEMPERATURE. 08-21-2022 11:24-0400 SaO2% (BldA) [Mass fraction] 97 % Prosper A Loki Work Phone: EI-Qcplwcpkix-Oxp ma Work Phone: 08-21-2022 05:59-0400 Body temperature 37.0 {degrees_C} Prosper A Loki Work Phone: FW-Dagfdctent-Zsh ma Work Phone: Comment on above: NOTE: PATIENT RESULTS ARE NOT CORRECTED FOR TEMPERATURE. 08-21-2022 05:59-0400 SaO2% (BldA) [Mass fraction] 99 % Prosper Valenzuela Loki Work Phone: OL-Fmeantolig-Vbu ma Work Phone: 08-09-2022 16:31-0400 Heart rate 127 /min JOI SORIANO MD [facility] 08-09-2022 15:45-0400 Body temperature 98.24 [degF] JOI SORIANO MD [facility] 08-09-2022 15:45-0400 Diastolic Blood Pressure Non-Invasive 95 1 JOI SORIANO MD [facility] 08-09-2022 15:45-0400 Heart rate 127 /min JOI SORIANO MD [facility] 08-09-2022 15:45-0400 Reason For Taking VItal Signs JOI SORIANO MD [facility] 08-09-2022 15:45-0400 Respiratory rate 18 /min JOI SORIANO MD [facility] 08-09-2022 15:45-0400 Systolic Blood Pressure Non-Invasive 124 1 JOI SORIANO MD [facility] 08-09-2022 11:55-0400 Heart rate 127 /min JOI SORIANO MD [facility] 08-09-2022 11:19-0400 Blood Pressure Location JOI SORIANO MD [facility] 08-09-2022 11:19-0400 Blood Pressure Method JOI SORIANO MD [facility] 08-09-2022 11:19-0400 Diastolic Blood Pressure Non-Invasive 98 1 JOI SORIANO MD [facility] 08-09-2022 11:19-0400 Heart rate 122 /min JOI SORIANO MD [facility] 08-09-2022 11:19-0400 Respiratory rate 20 /min JOI SORIANO MD [facility] 08-09-2022 11:19-0400 Systolic Blood Pressure Non-Invasive 124 1 JOI SORIANO MD [facility] 08-09-2022 11:15-0400 Blood Pressure Location JOI SORIANO MD [facility] 08-09-2022 11:15-0400 Blood Pressure Method JOI SORIANO MD [facility] 08-09-2022 11:15-0400 Diastolic Blood Pressure Non-Invasive 87 1 JOI SORIANO MD [facility] 08-09-2022 11:15-0400 Respiratory rate 20 /min JOI SORIANO MD [facility] 08-09-2022 11:15-0400 Systolic Blood Pressure Non-Invasive 113 1 JOI SORIANO MD [facility] 08-09-2022 08:03-0400 Heart rate 128 /min JOI SORIANO MD [facility] 08-09-2022 07:49-0400 Body temperature 98.42 [degF] JOI SORIANO MD [facility] 08-09-2022 07:49-0400 Mean blood pressure 98 mm[Hg] JOI SORIANO MD [facility] 08-09-2022 07:49-0400 Reason For Taking VItal Signs JOI SORIANO MD [facility] 08-09-2022 04:17-0400 Body temperature 98.24 [degF] JOI SORIANO MD [facility] 08-09-2022 04:17-0400 Mean blood pressure 97 mm[Hg] JOI SORIANO MD [facility] 08-09-2022 04:17-0400 Reason For Taking VItal Signs JOI SORIANO MD [facility] 08-09-2022 01:03-0400 Heart rate 129 /min JOI SORIANO MD [facility] 08-09-2022 00:53-0400 Heart rate 132 /min JOI SORIANO MD [facility] 08-08-2022 20:14-0400 Mean blood pressure 98 mm[Hg] JOI SORIANO MD [facility] 08-06-2022 23:15-0400 Body temperature 97.88 [degF] JOI SORIANO MD [facility] 08-06-2022 07:30-0400 SaO2% (BldA) [Mass fraction] 96.7 % JOI SORIANO MD [facility] 08-05-2022 15:04-0400 SaO2% (BldA) [Mass fraction] 78.8 % JOI SORIANO MD [facility] 08-04-2022 14:58-0400 SaO2% (BldA) [Mass fraction] 68.7 % JOI SORIANO MD [facility] 08-03-2022 12:12-0400 Blood Pressure Method JOI SORIANO MD [facility] 08-01-2022 22:16-0400 Body height 172 cm JOI SORIANO MD [facility] 08-01-2022 22:16-0400 Body weight 159 kg JOI SORIANO MD [facility] 08-01-2022 22:16-0400 Body weight 53.75 kg/m2 JOI SORIANO MD [facility] 08-01-2022 21:15-0400 Body temperature 98.96 [degF] JOHNSON DURESKA DO [facility] 08-01-2022 21:15-0400 Diastolic Blood Pressure Non-Invasive 104 1 JOHNSON DURESKA DO [facility] 08-01-2022 21:15-0400 Heart rate 136 /min JOHNSON DURESKA DO [facility] 08-01-2022 21:15-0400 Respiratory rate 24 /min JOHNSON DURESKA DO [facility] 08-01-2022 21:15-0400 Systolic Blood Pressure Non-Invasive 139 1 JOHNSON DURESKA DO [facility] 08-01-2022 21:06-0400 Body temperature 98.96 [degF] JOHNSON DURESKA DO [facility] 08-01-2022 21:06-0400 Diastolic Blood Pressure Non-Invasive 104 1 JOHNSON DURESKA DO [facility] 08-01-2022 21:06-0400 Heart rate 136 /min JOHNSON DURESKA DO [facility] 08-01-2022 21:06-0400 Respiratory rate 24 /min JOHNSON DURESKA DO [facility] 08-01-2022 21:06-0400 Systolic Blood Pressure Non-Invasive 139 1 JOHNSON DURESKA DO [facility] 08-01-2022 20:38-0400 Diastolic Blood Pressure Non-Invasive 88 1 JOHNSON DURESKA DO [facility] 08-01-2022 20:38-0400 Heart rate 138 /min JOHNSON DURESKA DO [facility] 08-01-2022 20:38-0400 Respiratory rate 24 /min JOHNSON DURESKA DO [facility] 08-01-2022 20:38-0400 Systolic Blood Pressure Non-Invasive 137 1 JOHNSON DURESKA DO [facility] 08-01-2022 19:00-0400 Heart rate 140 /min JOHNSON DURESKA DO [facility] 08-01-2022 18:28-0400 Heart rate 143 /min JOHNSON DURESKA DO [facility] 08-01-2022 18:08-0400 Heart rate 143 /min JOHNSON DURESKA DO [facility] 08-01-2022 15:58-0400 Heart rate 145 /min JOHNSON DURESKA DO [facility] 08-01-2022 15:22-0400 Blood Pressure Location JOHNSON DURESKA DO [facility] 08-01-2022 15:22-0400 Body temperature 98.78 [degF] JOHNSON DURESKA DO [facility] 08-01-2022 15:22-0400 Body weight 159 kg JOHNSON DURESKA DO [facility] 06-09-2022 11:53-0400 Diastolic Blood Pressure Non-Invasive [address] BHAVIK TRIANA MD [facility] 06-09-2022 11:53-0400 Heart rate 71 /min DR BHAVIK TRIANA MD [facility] 06-09-2022 11:53-0400 Respiratory rate 20 /min DR BHAVIK TRIANA MD [facility] 06-09-2022 11:53-0400 Systolic Blood Pressure Non-Invasive [address] BHAVIK TRIANA MD [facility] 06-09-2022 11:10-0400 Body height 172.[address] BHAVIK TRIANA MD [address] [place] [address] 06-09-2022 11:10-0400 Body weight 166.[address] BHAVIK TRIANA MD [address] [place] [address] 06-09-2022 11:10-0400 Body weight 55.89 kg/m2 DR BHAVIK TRIANA MD [address] [place] [address] 06-09-2022 11:06-0400 Body temperature 97.7 [degF] DR BHAVIK TRIANA MD [address] [place] [address] 06-09-2022 11:06-0400 Diastolic Blood Pressure Non-Invasive [address] BHAVIK TRIANA MD [address] [place] [address] 06-09-2022 11:06-0400 Heart rate 77 /min DR BHAVIK TRIANA MD [address] [place] [address] 06-09-2022 11:06-0400 Systolic Blood Pressure Non-Invasive [address] BHAVIK TRIANA MD [address] [place] [address] 06-09-2022 10:54-0400 Body weight 166.[address] BHAVIK TRIANA MD [facility] 05-12-2022 11:37-0400 Diastolic Blood Pressure Non-Invasive [address] BHAVIK TRIANA MD [address] [place] [address] 05-12-2022 11:37-0400 Heart rate 74 /min DR BHAVIK TRIANA MD [address] [place] [address] 05-12-2022 11:37-0400 Respiratory rate 18 /min DR BHAVIK TRIANA MD [facility] 05-12-2022 11:37-0400 Systolic Blood Pressure Non-Invasive [address] BHAVIK TRIANA MD [address] [place] [address] 05-12-2022 10:27-0400 Body temperature 97.88 [degF] DR BHAVIK TRIANA MD [facility] 05-12-2022 10:27-0400 Diastolic Blood Pressure Non-Invasive [address] BHAVIK TRIANA MD [facility] 05-12-2022 10:27-0400 Heart rate 84 /min DR BHAVIK TRIANA MD [address] [place] [address] 05-12-2022 10:27-0400 Respiratory rate 18 /min DR BHAVIK TRIANA MD [facility] 05-12-2022 10:27-0400 Systolic Blood Pressure Non-Invasive [address] BHAVIK TRIANA MD [facility] 05-12-2022 10:26-0400 Body height 172.[address] BHAVIK TRIANA MD [address] [place] [address] 05-12-2022 10:26-0400 Body weight 167.[address] BHAVIK TRIANA MD [facility] 05-12-2022 10:26-0400 Body weight 56.06 kg/m2 DR BHAVIK TRIANA MD [facility] 05-12-2022 09:30-0400 Body weight 167.[address] BHAVIK TRIANA MD [facility] 03-17-2022 12:44-0500 Diastolic Blood Pressure Non-Invasive [address] BHAVIK TRIANA MD [facility] 03-17-2022 12:44-0500 Heart rate 72 /min DR BHAVIK TRIANA MD [facility] 03-17-2022 12:44-0500 Systolic Blood Pressure Non-Invasive [address] BHAVIK TRIANA MD [facility] 03-17-2022 12:00-0500 Diastolic Blood Pressure Non-Invasive [address] BHAVIK TRIANA MD [facility] 03-17-2022 12:00-0500 Heart rate 78 /min DR BHAVIK TRIANA MD [facility] 03-17-2022 12:00-0500 Systolic Blood Pressure Non-Invasive [address] BHAVIK TRIANA MD [facility] 03-17-2022 11:52-0500 Body height 172.[address] BHAVIK TRIANA MD [facility] 03-17-2022 11:52-0500 Body weight 166.[address] BHAVIK TRIANA MD [facility] 03-17-2022 11:52-0500 Body weight 55.76 kg/m2 DR BHAVIK TRIANA MD [address] [place] [address] 03-17-2022 11:49-0500 Body temperature 97.7 [degF] DR BHAVIK TRIANA MD [address] [place] [address] 03-17-2022 11:49-0500 Diastolic Blood Pressure Non-Invasive [address] BHAVIK TRIANA MD [facility] 03-17-2022 11:49-0500 Heart rate 82 /min DR BHAVIK TRIANA MD [facility] 03-17-2022 11:49-0500 Respiratory rate 18 /min DR BHAVIK TRIANA MD [facility] 03-17-2022 11:49-0500 Systolic Blood Pressure Non-Invasive [address] BHAVIK TRIANA MD [facility] 03-17-2022 10:26-0500 Body weight 166.[address] BHAVIK TRIANA MD [facility] 03-07-2022 11:29-0500 Body temperature 97.52 [degF] DR BHAVIK TRIANA MD [facility] 03-07-2022 11:29-0500 Diastolic Blood Pressure Non-Invasive [address] BHAVIK TRIANA MD [facility] 03-07-2022 11:29-0500 Heart rate 72 /min DR BHAVIK TRIANA MD [facility] 03-07-2022 11:29-0500 Respiratory rate 18 /min DR BHAVIK TRIANA MD [facility] 03-07-2022 11:29-0500 Systolic Blood Pressure Non-Invasive [address] BHAVIK TRIANA MD [address] [place] [address] 03-07-2022 11:00-0500 Diastolic Blood Pressure Non-Invasive [address] BHAVIK TRIANA MD [address] 03-07-2022 11:00-0500 Heart rate 79 /min DR BHAVIK TRIANA MD [address] 03-07-2022 11:00-0500 Systolic Blood Pressure Non-Invasive [address] BHAVIK TRIANA MD [facility] 03-07-2022 10:45-0500 Diastolic Blood Pressure Non-Invasive [address] BHAVIK TRIANA MD [facility] 03-07-2022 10:45-0500 Heart rate 80 /min DR BHAVIK TRIANA MD [facility] 03-07-2022 10:45-0500 Respiratory rate 14 /min DR BHAVIK TRIANA MD [facility] 03-07-2022 10:45-0500 Systolic Blood Pressure Non-Invasive [address] BHAVIK TRIANA MD [facility] 03-07-2022 08:32-0500 Body temperature 98.42 [degF] DR BHAVIK TRIANA MD [facility] 03-07-2022 08:32-0500 Heart rate 77 /min DR BHAVIK TRIANA MD [facility] 03-07-2022 08:11-0500 Body height 172.[address] BHAVIK TRIANA MD [facility] 03-07-2022 08:11-0500 Body weight 161.[address] BHAVIK TRIANA MD [facility] 03-07-2022 08:11-0500 Body weight 54.05 kg/m2 DR BHAVIK TRIANA MD [facility] 01-26-2022 11:06-0500 Body temperature 97.88 [degF] DONNA MOCK MD [facility] 01-26-2022 11:06-0500 Diastolic Blood Pressure Non-Invasive 110 1 DONNA MOCK MD [facility] 01-26-2022 11:06-0500 Heart rate 84 /min DONNA MOCK MD [facility] 01-26-2022 11:06-0500 Respiratory rate 22 /min DONNA MOCK MD [facility] 01-26-2022 11:06-0500 Systolic Blood Pressure Non-Invasive 167 1 DONNA MOCK MD [facility] 01-20-2022 12:22-0500 Diastolic Blood Pressure Non-Invasive [address] BHAVIK TRIANA MD [facility] 01-20-2022 12:22-0500 Heart rate 71 /min DR BHAVIK TRIANA MD [facility] 01-20-2022 12:22-0500 Systolic Blood Pressure Non-Invasive [address] BHAVIK TRIANA MD [facility] 01-20-2022 10:39-0500 Body height 172.[address] BHAVIK TRIANA MD [facility] 01-20-2022 10:39-0500 Body weight [address] BHAVIK TRIANA MD [facility] 01-20-2022 10:39-0500 Body weight 55.99 kg/m2 DR BHAVIK TRIANA MD [facility] 01-20-2022 10:35-0500 Body temperature 97.52 [degF] DR BHAVIK TRIANA MD [facility] 01-20-2022 10:35-0500 Diastolic Blood Pressure Non-Invasive [address] BHAVIK TRIANA MD [address] [place] [address] 01-20-2022 10:35-0500 Heart rate 77 /min DR BHAVIK TRAINA MD [address] [place] [address] 01-20-2022 10:35-0500 Systolic Blood Pressure Non-Invasive [address] BHAVIK TRIANA MD [address] [place] [address] 01-20-2022 08:57-0500 Body weight [address] BHAVIK TRIANA MD [address] [place] [address] 12-23-2021 12:54-0500 Diastolic Blood Pressure Non-Invasive [address] BHAVIK TRIANA MD [facility] 12-23-2021 12:54-0500 Heart rate 76 /min DR BHAVIK TRIANA MD [facility] 12-23-2021 12:54-0500 Systolic Blood Pressure Non-Invasive [address] BHAVIK TRIANA MD [facility] 12-23-2021 12:07-0500 Body height 172.[address] BHAVIK TRIANA MD [address] [place] [address] 12-23-2021 12:07-0500 Body weight 164.[address] BHAVIK TRIANA MD [facility] 12-23-2021 12:07-0500 Body weight 55.02 kg/m2 DR BHAVIK TRIANA MD [facility] 12-23-2021 11:59-0500 Body temperature 98.06 [degF] DR BHAVIK TRIANA MD [facility] 12-23-2021 11:59-0500 Diastolic Blood Pressure Non-Invasive [address] BHAVIK TRIANA MD [facility] 12-23-2021 11:59-0500 Heart rate 76 /min DR BHAVIK TRIANA MD [address] [place] [address] 12-23-2021 11:59-0500 Systolic Blood Pressure Non-Invasive [address] BHAVIK TRIANA MD [address] 12-23-2021 09:58-0500 Body weight 164.[address] BHAVIK TRIANA MD [address] 09-22-2021 12:27-0400 Body temperature 97.7 [degF] DR BHAVIK TRIANA MD [address] [place] [address] 09-22-2021 12:27-0400 Diastolic blood pressure 97 mm[Hg] DR BHAVIK TRIANA MD [address] 09-22-2021 12:27-0400 Heart rate 74 /min DR BHAVIK TRIANA MD [address] 09-22-2021 12:27-0400 Respiratory rate 18 /min DR BHAVIK TRIANA MD [address] [place] [address] 09-22-2021 12:27-0400 Systolic blood pressure 155 mm[Hg] DR BHAVIK TRIANA MD [address] [place] [address] 09-22-2021 11:06-0400 Body temperature 98.42 [degF] DR BHAVIK TRIANA MD [address] [place] [address] 09-22-2021 11:06-0400 Diastolic blood pressure 68 mm[Hg] DR BHAVIK TRIANA MD [address] 09-22-2021 11:06-0400 Heart rate 66 /min DR BHAVIK TRIANA MD [address] [place] [address] 09-22-2021 11:06-0400 Respiratory rate 18 /min DR BHAVIK TRIANA MD [facility] 09-22-2021 11:06-0400 Systolic blood pressure 132 mm[Hg] DR BHAVIK TRIANA MD [facility] 08-03-2021 11:40-0400 Diastolic blood pressure 102 mm[Hg] DR MEI VALENTIN MD [facility] 08-03-2021 11:40-0400 Systolic blood pressure 156 mm[Hg] DR MEI VALENTIN MD [facility] 08-03-2021 11:23-0400 Body temperature 98.6 [degF] DR MEI VALENTIN MD [facility] 08-03-2021 11:23-0400 Diastolic blood pressure 115 mm[Hg] DR MEI VALENTIN MD [facility] 08-03-2021 11:23-0400 Heart rate 99 /min DR MEI VALENTIN MD [facility] 08-03-2021 11:23-0400 Respiratory rate 18 /min DR MEI VALENTIN MD [facility] 08-03-2021 11:23-0400 Systolic blood pressure 182 mm[Hg] DR MEI VALENTIN MD [facility] 06-30-2021 11:50-0400 diastolic 87 mm[Hg] DR BHAVIK TRIANA MD [facility] 06-30-2021 11:50-0400 Heart rate 74 /min DR BHAVIK TRIANA MD [facility] 06-30-2021 11:50-0400 Respiratory rate 18 /min DR BHAVIK TRIANA MD [facility] 06-30-2021 11:50-0400 systolic 151 mm[Hg] DR BHAVIK TRIANA MD [facility] 06-30-2021 10:23-0400 Body temperature 97.34 [degF] DR BHAVIK TRIANA MD [facility] 06-30-2021 10:23-0400 Diastolic Blood Pressure NBP [address] BHAVIK TRIANA MD [facility] 06-30-2021 10:23-0400 Heart rate 68 /min DR BHAVIK TRIANA MD [facility] 06-30-2021 10:23-0400 Systolic Blood Pressure NBP [address] BHAVIK TRIANA MD [facility] 06-02-2021 11:45-0400 diastolic 100 mm[Hg] DR BHAVIK TRIANA MD [facility] 06-02-2021 11:45-0400 Heart rate 75 /min DR BHAVIK TRIANA MD [facility] 06-02-2021 11:45-0400 Respiratory rate 18 /min DR BHAVIK TRIANA MD [facility] 06-02-2021 11:45-0400 systolic 149 mm[Hg] DR BHAVIK TRIANA MD [facility] 06-02-2021 10:58-0400 Body temperature 98.24 [degF] DR BHAVIK TRIANA MD [facility] 06-02-2021 10:58-0400 Diastolic blood pressure 65 mm[Hg] DR BHAVIK TRIANA MD [facility] 06-02-2021 10:58-0400 Heart rate 90 /min DR BHAVIK TRIANA MD [facility] 06-02-2021 10:58-0400 Systolic blood pressure 121 mm[Hg] DR BHAVIK TRIANA MD [facility] 06-02-2021 10:29-0400 Body temperature 97.52 [degF] DR BHAVIK TRIANA MD [facility] 06-02-2021 10:29-0400 Diastolic blood pressure 102 mm[Hg] DR BHAVIK TRIANA MD [facility] 06-02-2021 10:29-0400 Heart rate 77 /min DR BHAVIK TRIANA MD [facility] 06-02-2021 10:29-0400 Systolic blood pressure 141 mm[Hg] DR BHAVIK TRIANA MD [facility] 05-05-2021 13:04-0400 Diastolic blood pressure 72 mm[Hg] DR BHAVIK TRIANA MD [facility] 05-05-2021 13:04-0400 Heart rate 80 /min DR BHAVIK TRIANA MD [facility] 05-05-2021 13:04-0400 Respiratory rate 16 /min DR BHAVIK TRIANA MD [facility] 05-05-2021 13:04-0400 Systolic blood pressure 146 mm[Hg] DR BHAVIK TRIANA MD [facility] 05-05-2021 11:25-0400 Body temperature 97.52 [degF] DR BHAVIK TRIANA MD [facility] 05-05-2021 11:25-0400 diastolic 89 mm[Hg] DR BHAVIK RTIANA MD [facility] 05-05-2021 11:25-0400 Heart rate 83 /min DR BHAVIK TRIANA MD [facility] 05-05-2021 11:25-0400 Respiratory rate 18 /min DR BHAVIK TRIANA MD [facility] 05-05-2021 11:25-0400 systolic 157 mm[Hg] DR BHAVIK TRIANA MD [facility] 04-07-2021 12:47-0500 diastolic 92 mm[Hg] DR BHAVIK TRIANA MD [facility] 04-07-2021 12:47-0500 Heart rate 77 /min DR BHAVIK TRIANA MD [facility] 04-07-2021 12:47-0500 Respiratory rate 18 /min DR BHAVIK TRIANA MD [facility] 04-07-2021 12:47-0500 systolic 145 mm[Hg] DR BHAVIK TRIANA MD [facility] 04-07-2021 10:48-0500 Body temperature 97.52 [degF] DR BHAVIK TRIANA MD [facility] 04-07-2021 10:48-0500 diastolic 81 mm[Hg] DR BHAVIK TRIANA MD [facility] 04-07-2021 10:48-0500 Heart rate 72 /min DR BHAVIK TRIANA MD [facility] 04-07-2021 10:48-0500 Respiratory rate 20 /min DR BHAVIK TRIANA MD [facility] 04-07-2021 10:48-0500 systolic 141 mm[Hg] DR BHAVIK TRIANA MD [facility] 03-17-2021 13:02-0500 Diastolic blood pressure 87 mm[Hg] DR BHAVIK TRIANA MD [facility] 03-17-2021 13:02-0500 Heart rate 83 /min DR BHAVIK TRIANA MD [facility] 03-17-2021 13:02-0500 Respiratory rate 18 /min DR BHAVIK TRIANA MD [facility] 03-17-2021 13:02-0500 Systolic blood pressure 160 mm[Hg] DR BHAVIK TRIANA MD [facility] 03-17-2021 11:26-0500 Body temperature 97.7 [degF] DR BHAVIK TRIANA MD [facility] 03-17-2021 11:26-0500 diastolic 90 mm[Hg] DR BHAVIK TRIANA MD [facility] 03-17-2021 11:26-0500 Heart rate 109 /min DR BHAVIK TRIANA MD [facility] 03-17-2021 11:26-0500 Respiratory rate 20 /min DR BHAVIK TRIANA MD [facility] 03-17-2021 11:26-0500 systolic 136 mm[Hg] DR BHAVIK TRIANA MD [facility] 01-27-2021 14:24-0500 Diastolic blood pressure 90 mm[Hg] DR BHAVIK TRIANA MD [facility] 01-27-2021 14:24-0500 Heart rate 91 /min DR BHAVIK TRAINA MD [facility] 01-27-2021 14:24-0500 Systolic blood pressure 152 mm[Hg] DR BHAVIK TRIANA MD [facility] 01-27-2021 13:42-0500 diastolic 70 mm[Hg] DR BHAVIK TRIANA MD [facility] 01-27-2021 13:42-0500 Heart rate 86 /min DR BHAVIK TRIANA MD [facility] 01-27-2021 13:42-0500 systolic 150 mm[Hg] DR BHAVIK TRIANA MD [facility] 01-27-2021 12:37-0500 Body temperature 97.52 [degF] DR BHAVIK TRIANA MD [facility] 01-27-2021 12:37-0500 diastolic 94 mm[Hg] DR BHAVIK TRIANA MD [facility] 01-27-2021 12:37-0500 Respiratory rate 20 /min DR BHAVIK TRIANA MD [facility] 01-27-2021 12:37-0500 systolic 182 mm[Hg] DR BHAVIK TRIANA MD [facility] 12-16-2020 13:55-0400 diastolic 94 mm[Hg] DR BHAVIK TRIANA MD [facility] 12-16-2020 13:55-0400 Heart rate 90 /min DR BHAVIK TRIANA MD [facility] 12-16-2020 13:55-0400 Respiratory rate 18 /min DR BHAVIK TRIANA MD [facility] 12-16-2020 13:55-0400 systolic 152 mm[Hg] DR BHAVIK TRIANA MD [facility] 12-16-2020 11:28-0400 Body temperature 97.88 [degF] DR BHAVIK TRIANA MD [facility] 12-16-2020 11:28-0400 diastolic 82 mm[Hg] DR BHAVIK TRIANA MD [facility] 12-16-2020 11:28-0400 Heart rate 86 /min DR BHAVIK TRIANA MD [facility] 12-16-2020 11:28-0400 Respiratory rate 18 /min DR BHAVIK TRIANA MD [facility] 12-16-2020 11:28-0400 systolic 139 mm[Hg] DR BHAVIK TRIANA MD [facility] 11-25-2020 12:50-0400 Diastolic blood pressure 70 mm[Hg] DR BHAVIK TRIANA MD [facility] 11-25-2020 12:50-0400 Mean blood pressure 92 mm[Hg] DR BHAVIK TRIANA MD [facility] 11-25-2020 12:50-0400 Systolic blood pressure 136 mm[Hg] DR BHAVIK TRIANA MD [facility] 11-25-2020 10:38-0400 Body weight 169.[address] BHAVIK TRIANA MD [facility] 11-25-2020 10:15-0400 Body temperature 97.7 [degF] DR BHAVIK TRIANA MD [facility] 11-25-2020 10:15-0400 diastolic 75 mm[Hg] DR BHAVIK TRIANA MD [facility] 11-25-2020 10:15-0400 Heart rate 80 /min DR BHAVIK TRIANA MD [facility] 11-25-2020 10:15-0400 Respiratory rate 18 /min DR BHAVIK TRIANA MD [facility] 11-25-2020 10:15-0400 systolic 131 mm[Hg] DR BHAVIK TRIANA MD [facility] Encounters Encounter Date Encounter Type Care Provider Facility Start: 12-16-[address] BHAVIK TRIANA MD Facilit y:A Start: 11-27-2024 End: 11-27-2024 ambulatory [facility] Start: 11-25-2024 End: 11-26-2024 Emergency department patient visit PROSPER [facility] Start: 11-25-2024 End: 11-25-2024 Emergency department patient visit DONNA MOCK MD [facility] Start: 11-19-[address] BHAVIK TRIANA MD Facilit y:[facility] Start: 11-19-2024 End: 11-19-[address] BHAVIK TRIANA MD Facility:A Start: 11-19-2024 End: 11-19-[address] BHAVIK TRIANA MD [facility] Start: 10-22-[address] BHAVIK TRIANA MD Facilit y:[facility] Start: 10-22-2024 End: 10-22-2024 ambulatory EZEQUIEL LEAL EKG MONITOR-WORD PROCESSING SPECIALIST Facility:A Start: 10-22-2024 End: 10-22-2024 Patient encounter procedure EZEQUIEL LEAL EKG MONITOR-WORD PROCESSING SPECIALIST [facility] Start: 10-16-2024 End: 10-20-[address] PROSPER MANJARREZ DO Facility:[facility] Start: 10-16-2024 End: 10-20-[address] PROSPER MANJARREZ DO [facility] Start: 10-08-2024 End: 10-08-[address] PROSPER MANJARREZ DO Facility:[facility] Start: 10-08-2024 End: 10-08-2024 Patient encounter procedure EZEQUIEL ELVIS EKG MONITOR-WORD PROCESSING SPECIALIST [facility] Start: 09-17-2024 End: 09-17-[address] BHAVIK TRIANA MD Facility:A Start: 09-17-2024 End: 09-17-[address] BHAVIK TRIANA MD [facility] Start: 08-07-2024 End: 08-07-[address] BHAVIK TRIANA MD Facility:A Start: 08-07-2024 End: 08-07-[address] BHAVIK TRIANA MD [facility] Start: 08-06-2024 End: 08-06-[address] BHAVIK TRIANA MD Facility:[facility] Start: 08-06-2024 End: 08-06-[address] BHAVIK TRIANA MD [facility] Start: 07-30-2024 End: 08-01-2024 ambulatory PAM ROME MD Facility:A Start: 07-30-2024 End: 08-01-2024 Observation AISHWARYA HAMLIN MD [facility] Start: 07-26-2024 End: 07-27-2024 Emergency department patient visit DR LISBET J RIDER DO [facility] Start: 07-26-2024 End: 07-26-2024 Admission to establishment AISHWARYA HAMLIN MD [facility] Start: 07-26-2024 End: 07-26-2024 ambulatory AISHWARYA HAMLIN MD Facility:A Start: 07-22-2024 End: 07-26-2024 ambulatory HERMAN ORDAZ EKG MONITOR-WORD PROCESSING SPECIALIST Facility:[facility] Start: 07-22-2024 End: 07-26-2024 Outreach Lab HERMNA ORDAZ EKG MONITOR-WORD PROCESSING SPECIALIST [facility] Start: 07-18-2024 ambulatory LIAN FUNG Facility: [facility] Start: 07-03-2024 End: 07-03-[address] BHAVIK TRIANA MD Facility:A Start: 07-03-2024 End: 07-03-[address] BHAVIK TRIANA MD [facility] Start: 06-26-2024 End: 06-26-[address] BHAVIK TRIANA MD Facility:[facility] Start: 06-26-2024 End: 06-26-[address] BHAVIK TRIANA MD [facility] Start: 06-05-2024 End: 06-05-[address] PROSPER MANJARREZ DO Facility:A Start: 06-05-2024 End: 06-05-2024 Patient encounter procedure EZEQUIEL LEAL EKG MONITOR-WORD PROCESSING SPECIALIST [facility] Start: 05-16-2024 ambulatory EZEQUIEL LEAL EKG MONITOR-WORD PROCESSING SPECIALIST Facility:[facility] Start: 04-30-2024 End: 04-30-[address] PROSPER MANJARREZ DO Facility:A Start: 04-30-2024 End: 04-30-[address] BHAVIK TRIANA MD [facility] Start: 04-02-2024 End: 04-02-2024 ambulatory EZEQUIEL LEAL EKG MONITOR-WORD PROCESSING SPECIALIST Facility:A Start: 04-02-2024 End: 04-02-2024 Patient encounter procedure EZEQUIEL LEAL EKG MONITOR-WORD PROCESSING SPECIALIST [facility] Start: 03-27-2024 End: 03-31-2024 ambulatory EZEQUIEL LEAL EKG MONITOR-WORD PROCESSING SPECIALIST Facility:[facility] Start: 03-27-2024 End: 03-31-2024 Outreach Lab EZEQUIEL LEAL EKG MONITOR-WORD PROCESSING SPECIALIST [facility] Start: 03-12-2024 ambulatory [facility] Facility:[facility] Start: 03-04-2024 End: 03-04-[address] BHAVIK TRIANA MD Facility:A Start: 03-04-2024 End: 03-04-[address] BHAVIK TRIANA MD [facility] Start: 03-01-2024 End: 03-01-[address] PROSPER MANJARREZ DO Facility:[facility] Start: 02-29-[address] PROSPER BARCLAY DO Facility:[facility] Start: 02-05-2024 End: 02-05-2024 ambulatory EZEQUIEL LEAL EKG MONITOR-WORD PROCESSING SPECIALIST Facility:A Start: 02-05-2024 End: 02-05-2024 Patient encounter procedure EZEQUIEL LEAL EKG MONITOR-WORD PROCESSING SPECIALIST [facility] Start: 01-31-2024 End: 02-04-[address] PROSPER MANJARREZ DO Facility:[facility] Start: 01-31-2024 End: 02-04-[address] PROSPER MANJARREZ DO [facility] Start: 01-25-2024 End: 01-25-2024 Emergency department patient visit NORMA GARCIA DO [facility] Start: 01-19-2024 End: 01-19-2024 ambulatory EZEQUIELCHASE LEAL EKG MONITOR-WORD PROCESSING SPECIALIST Facility:[facility] Start: 01-19-2024 End: 01-19-2024 Patient encounter procedure EZEQUIEL LEAL EKG MONITOR-WORD PROCESSING SPECIALIST [facility] Start: 12-21-2023 End: 12-21-2023 ambulatory EZEQUIEL LEAL EKG MONITOR-WORD PROCESSING SPECIALIST Facility: Start: 12-21-2023 End: 12-21-2023 Patient encounter procedure EZEQUIEL LEAL EKG MONITOR-WORD PROCESSING SPECIALIST [facility] Start: 11-30-2023 End: 11-30-[address] PROSPER MANJARREZ DO [facility] Start: 11-30-2023 End: 11-30-2023 Well adult monitoring check done DR PROSPER MANJARREZ DO [facility] Start: 11-23-2023 End: 11-23-2023 Chart abstracting Yasir Bradford APRN.HOME VISITS NURSE Work Phone: Pulmonary Medicine Comment on above: Multidisciplinary Di scussion (CTEPH) Other secondary pulm onary hypertension (HCC) (Primary Dx); CTEPH (chronic thromboembolic pulmonary hypertension) (HCC); SOB (shortness of breath); History of pulmonary embolism Start: 11-17-2023 End: 11-21-2023 Chart abstracting Yasir Bradford APRN.HOME VISITS NURSE Work Phone: Pulmonary Medicine Comment on above: Consult (External re ferral for CTEPH ) Start: 11-16-2023 End: 11-22-2023 Telephone encounter Shyanne Dockery Pulmonary Medicine Comment on above: New CTEPH Referral Start: 11-16-2023 End: 11-16-[address] BHAVIK TRIANA MD [facility] Start: 11-03-2023 End: 11-03-2023 Patient encounter procedure NOAH SEPULVEDA MD [facility] Start: 10-31-2023 End: 10-31-2023 SAME DAY STAY NOAH SEPULVEDA MD [facility] Start: 10-26-2023 End: 10-26-2023 Emergency department patient visit NORMA GARCIA DO [facility] Start: 10-19-2023 End: 10-19-[address] BHAVIK TRIANA MD [facility] Start: 10-14-[address] PROSPER BARCLAY DO Facility:A Start: 10-12-2023 End: 10-12-[address] PROSPER MANJARREZ DO Facility:[facility] Start: 10-12-2023 End: 10-12-[address] BHAVIK TRIANA MD [facility] Start: 09-20-[address] PROSPER BARCLAY DO Facility:[facility] Start: 09-18-2023 End: 09-25-2023 Evaluation and management of inpatient REGINA SANCHEZ MD [facility] Start: 09-12-2023 End: 09-18-2023 Evaluation and management of inpatient MURALI MAGANA EKG MONITOR-WORD PROCESSING SPECIALIST [facility] Start: 08-31-2023 End: 08-31-2023 Emergency department patient visit MARIO COCHRAN MD [facility] Start: 08-24-2023 End: 08-24-[address] PROSPER NOWAKR DO Facility:A Start: 08-24-2023 End: 08-24-[address] BHAVIK TRIANA MD [facility] Start: 08-09-2023 End: 08-09-2023 ambulatory LIAN FUNG MD Facility:A Start: 07-27-2023 End: 07-27-[address] PROSPER MANJARREZ DO Facility:A Start: 07-27-2023 End: 07-27-[address] BHAVIK TRIANA MD [facility] Start: 07-20-2023 End: 07-20-[address] PROSPER NOWAKR DO Facility:[facility] Start: 07-20-2023 End: 07-20-[address] BHAVIK TRIANA MD [facility] Start: 03-13-[address] PROSPER Valenzuela BUL LER DO Facility:A Start: 02-16-[address] PROSPER Valenzuela BUL LER DO Facility:[facility] Start: 02-16-2023 End: 02-16-[address] PROSPER Valenzuela LOKI DO Facility:A Start: 02-16-2023 End: 02-16-[address] BHAVIK TRIANA MD [facility] Start: 01-19-2023 End: 01-19-[address] PROSPER MANJARREZ DO Facility:A Start: 01-19-2023 End: 01-19-[address] BHAVIK TRIANA MD [facility] Start: 12-16-[address] PROSPER BARCLAY DO Facility:A Start: 12-01-2022 End: 12-01-2022 ambulatory LIAN FUNG MD Facility:A Start: 12-01-2022 End: 12-01-2022 Patient encounter procedure LIAN FUNG MD [facility] Start: 11-29-2022 End: 11-30-2022 ambulatory PROSPER MANJARREZ [facility] Start: 11-29-2022 End: 11-30-2022 ambulatory DORON Stokes [facility] Start: 11-24-2022 End: 11-24-[address] PROSPER MANJARREZ DO Facility:A Start: 11-24-2022 End: 11-24-[address] BHAVIK TRIANA MD [facility] Start: 11-23-2022 End: 11-23-2022 ambulatory [facility] Start: 11-23-2022 End: 11-23-2022 Subsequent hospital visit by physician Andrew [facility] Comment on above: Typical atrial flutt er (CMS/HCC); Right atrial mass; SOB (shortness of breath) on exertion Typical atrial flutt er (CMS/HCC); Right atrial mass; SOB (shortness of breath) on exertion; Atypical atrial flutter (CMS/HCC); Pulmonary thrombosis (CMS/HCC) Start: 10-27-2022 End: 10-27-[address] PROSPER MANJARREZ DO Facility:A Start: 10-27-2022 End: 10-27-[address] BHAVIK TRIANA MD [facility] Start: 10-27-2022 End: 10-03-[address] PROSPER MANJARREZ DO Facility:[facility] Start: 10-27-2022 End: 10-03-2023 Lab-Standing Order DR PROSPER MANJARREZ DO [facility] Start: 10-24-2022 End: 10-24-2022 ambulatory LIAN FUNG MD Facility:A Start: 10-24-2022 End: 10-24-2022 Patient encounter procedure LIAN FUNG MD [facility] Start: 10-11-2022 NPV, Provider: Doron Gonzalez, Status: Pen, Time: 3:00 PM Prosper A Loki Work Phone: [facility] [address] Work Phone: Start: 10-10-2022 Patient encounter procedure Br ett A Loki Work Phone: [facility] [address] Work Phone: Start: 10-10-2022 Postop follow up vis it related to original px Prosper A Loki Work Phone: [facility] [place] Work Phone: Start: 10-10-2022 TAYLA, Provider : Georgia Brady, Status: Pen, Time: 2:45 PM Prosper A Loki Work Phone: ZM-Xtyfbnrsqp-Xwkbeb [address] [place] Work Phone: Start: 10-10-[address] Prosper Manjarrez Facility:[facility] Start: 10-10-[address] Prosper flores Loki Facility:[facility] Start: 10-03-2022 AUDIT Prosper Valenzuela Loki Work Phone: [facility] [address] [place] Work Phone: Start: 09-29-2022 End: 09-29-[address] BHAVIK TRIANA MD [facility] Start: 09-22-2022 ambulatory Han Stover Facility:[facility] Start: 09-16-2022 AUDIT Prosper Manjarrez Work Phone: SW-Mem[facility] Work Phone: Start: 09-05-[address] Prosper Manjarrez Facility:[id number] Start: 08-10-2022 End: 08-29-2022 Evaluation and management of inpatient Georgia [facility] TT03 Rm 3027 01 Start: 08-01-2022 End: 08-09-2022 Evaluation and management of inpatient JOI SORIANO MD [facility] Start: 08-01-2022 End: 08-01-2022 Emergency department patient visit JOHNSON CUNNINGHAM DO [facility] Start: 06-09-2022 End: 06-09-[address] BHAVIK TRIANA MD [facility] Start: 05-12-2022 End: 05-12-[address] BHAVIK TRIANA MD [facility] Start: 03-17-2022 End: 03-17-[address] BHAVIK TRIANA MD [facility] Start: 03-08-2022 End: 03-08-[address] BHAVIK TRIANA MD [facility] Start: 03-07-2022 End: 03-07-[address] BHAVIK TRIANA MD [facility] Start: 01-26-2022 End: 01-26-2022 Emergency department patient visit DONNA MOCK MD [facility] Start: 01-20-2022 End: 01-20-[address] BHAVIK TRIANA MD [facility] Start: 12-23-2021 End: 12-23-[address] BHAVIK TRIANA MD [facility] Start: 09-22-2021 End: 09-22-[address] BHAVIK TRIANA MD [facility] Start: 09-15-2021 End: 09-15-[address] BHAVIK TRIANA MD [facility] Start: 08-03-2021 End: 08-03-2021 Emergency department patient visit DR MEI VALENTIN MD [facility] Start: 06-30-2021 End: 06-30-[address] BHAVIK TRIANA MD [facility] Start: 06-02-2021 End: 06-02-[address] BHAVIK TRIANA MD [facility] Start: 05-05-2021 End: 05-05-[address] BHAVIK TRIANA MD [facility] Start: 04-28-2021 End: 04-28-[address] BHAVIK TRIANA MD [facility] Start: 04-07-2021 End: 04-07-[address] BHAVIK TRIANA MD [facility] Start: 03-17-2021 End: 03-17-[address] BHAVIK TRIANA MD [facility] Start: 03-09-2021 End: 03-09-[address] BHAVIK TRIANA MD [facility] Start: 02-04-2021 End: 02-04-[address] PAMELA MEI MD [facility] Start: 01-27-2021 End: 01-27-[address] BHAVIK TRIANA MD [facility] Start: 01-06-2021 End: 01-06-[address] BHAVIK TRIANA MD [facility] Start: 12-30-2020 End: 12-30-[address] BHAVIK TRIANA MD [facility] Start: 12-16-2020 End: 12-16-[address] BHAVIK TRIANA MD [facility] Start: 11-25-2020 End: 11-25-[address] BHAVIK TRIANA MD [facility] Procedures Date Procedure Procedure Detail Performing Clinician Start: 07-30-2024 Incision AND drainage M ROSS HAMLIN MD Comment on above: Exploration of bleed ing right thigh wound with suture ligation and cauterization of bleeding sites Incision and drainag e and debridement of right thigh multiple abscesses Start: 01-25-[address] Donn MANJARREZ DO Comment on above: back of right thigh drainage Start: 11-29-2022 ANTI-CARDIOLIPIN ANT IBODY (IGA, IGG, AND IGM) DORON GONZALEZ Start: 11-29-2022 BETA-2 GLYCOPROTEIN ANTIBODIES DORON GONZALEZ Start: 11-23-2022 HOLTER OR EVENT CARD IAC MONITOR RIVKA ELKINS Start: 11-23-2022 TRANSTHORACIC ECHO ( TTE) COMPLETE RIVKA SEVERO Start: 11-23-2022 Echo tthrc r-t 2d w/ wom-mode compl spec&colr d Rivka Elkins MD Work Phone: Start: 08-23-[address] Sara Manjarrez Comment on above: Performed By: #### T +S ####[id number] [place] [address] Start: 08-20-[address] Sara Manjarrez Comment on above: Performed By: #### T +S ####[id number] [place] [address] Start: 08-19-[address] Iris Manjarrez Start: 08-19-2022 Lipid 1996 panel - S bob or Plasma Par Stress Start: 08-18-2022 End: 08-18-2022 Arterial Full Panel -Stat Chuckie Sofiya Start: 08-18-2022 End: 08-18-2022 Gas panel - Arterial blood Chuckie Sofiya Start: 08-18-2022 Incision of atrium of heart HERMAN ORDAZ EKG MONITOR-WORD PROCESSING SPECIALIST Comment on above: with removal of of r ight atrial mass Start: 08-18-2022 Removal of pulmonary embolus HERMAN ORDAZ EKG MONITOR-WORD PROCESSING SPECIALIST Start: 08-17-[address] Sara Manjarrez Comment on above: Performed By: #### T +S ####[id number] [place] [address] Start: 08-17-[address] Jose Luis TRIANA MD Start: 08-16-[address] Sara Manjarrez Comment on above: Performed By: #### T +S ####[id number] [id number] Start: 08-16-2022 Thyrotropin [Units/v olume] in Serum or Plasma Par Stress Start: 08-10-[address] Iris Manjarrez Start: 08-10-[address] 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 Real Wilburn]: Normal coronaries in a right co-dominant system. Conclusions: nonobstructive CAD.; Chemotherapy DR BHAVIK TRIANA MD Comment on above: 3 weeks ago Kidney excision Prosper tamez Work Phone: Comment on above: August 2020 - left; Operation on heart Prosper burgosler Work Phone: Comment on above: [08/18/2022, Dr. 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) SOB (shortness of breath) Expected: 11/23/2023, Expires: 02/22/2024 [facility] Comment on above: Expected: 11/23/2023 , Expires: 02/22/2024 Start: 11-23-2023 End: 02-22-2024 BETA 2 GLYCOPROTEIN, IGM BETA 2 GLYCOPROTEIN, IGM Lab Routine 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) SOB (shortness of breath) Expected: 11/23/2023, Expires: 02/22/2024 [facility] Comment on above: Expected: 11/23/2023 , Expires: 02/22/2024 Start: 11-23-2023 End: 02-22-2024 Cardiolipin IgA Ab [Units/volume] in Serum by Immunoassay CARDIOLIPIN IGA ABS Lab Routine 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) SOB (shortness of breath) Expected: 11/23/2023, Expires: 02/22/2024 [facility] Comment on above: Expected: 11/23/2023 , Expires: 02/22/2024 Start: 11-23-2023 End: 02-22-2024 CARDIOLIPIN IGG ABS CARDIOLIPIN IGG ABS Lab Routine 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) SOB (shortness of breath) Expected: 11/23/2023, Expires: 02/22/2024 [facility] Comment on above: Expected: 11/23/2023 , Expires: 02/22/2024 Start: 11-23-2023 End: 02-22-2024 CARDIOLIPIN IGM ABS CARDIOLIPIN IGM ABS Lab Routine 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) SOB (shortness of breath) Expected: 11/23/2023, Expires: 02/22/2024 [facility] Comment on above: Expected: 11/23/2023 , Expires: 02/22/2024 Start: 11-23-2023 End: 02-22-2024 CBC W Auto Differential panel - Blood COMPLETE BLOOD COUNT AND DIFFERENTIAL Lab Routine 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) SOB (shortness of breath) Expected: 11/23/2023, Expires: 02/22/2024 [facility] Work Phone: Comment on above: Expected: 11/23/2023 , Expires: 02/22/2024 Start: 11-23-2023 End: 02-22-2024 Comprehensive metabolic 2000 panel - Serum or Plasma COMPREHENSIVE METABOLIC PANEL Lab Routine 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) SOB (shortness of breath) Expected: 11/23/2023, Expires: 02/22/2024 [facility] Comment on above: Expected: 11/23/2023 , Expires: 02/22/2024 Start: 11-23-2023 End: 02-22-2024 Natriuretic peptide.B prohormone N-Terminal [Mass/volume] in Serum or Plasma NT PRO BNP Lab Routine 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) SOB (shortness of breath) Expected: 11/23/2023, Expires: 02/22/2024 [facility] Comment on above: Expected: 11/23/2023 , Expires: 02/22/2024 Start: 08-30-2023 Creatinine measurement Creatinine Le claire [facility] Start: 08-30-2023 Potassium measurement Potassium Teddy stokes [facility] Start: 08-25-2023 Diabetes mellitus screening Diabetes Screening [facility] Start: 08-17-2023 Thyroid stimulating hormone measurement TSH Level [facility] Start: 08-11-2023 Hemoglobin A1c measurement Marcia betes: Hemoglobin A1C [facility] Start: 05-30-2023 End: 05-30-2023 Patient encounter procedure 05/30/2023 2:00 PM EDT Office Visit [facility] [address] [place] [address] [place] [address] [address], [place] [id number] [facility] Start: 11-29-2022 NPV, Provider: Doron Gonzalez, Status: Pen, Time: 3:00 PM NPV, Provider: Doron Gonzalez, Status: Pen, Time: 3:00 PM IJ-Dwpuctsstm-[facility] [address] [place] Work Phone: Start: 11-03-2022 EVENT KYUNG, Provider : HEATH HHVI MONITORS,[id number], Status: Pen, Time: 11:00 AM EVENT KYUNG, Provider: HEATH HHVI MONITORS,[id number], Status: Pen, Time: 11:00 AM FS-Fasvbdedbu-Hjwaz Work Phone: Start: 11-03-2022 ECHO, Provider: CANDIDA ACUNAI,[id number], Status: Pen, Time: 10:00 AM ECHO, Provider: HEATH ACUNAI,[id number], Status: Pen, Time: 10:00 AM CF-Clkeqybugj-Vbwpi Work Phone: Start: 10-14-2022 Influenza vaccination Influenza Vacc ine (#1) [facility] Start: 10-11-2022 NPV, Provider: Doron Gonzalez, Status: Pen, Time: 3:00 PM NPV, Provider: Doron Gonzalez, Status: Pen, Time: 3:00 PM GO-Oirxtpnbvh-Axoiu Work Phone: Start: 10-11-2022 Patient encounter procedure [facility] Start: 10-07-2022 Patient encounter procedure [facility] [place] Start: 10-07-2022 POV, Provider: Georgia Brady, Status: Pen, Time: 1:30 PM POV, Provider: Georgia Brady, Status: Pen, Time: 1:30 PM US-Lwosutvpqx-Sycem Work Phone: Start: 09-08-2022 Patient encounter procedure [facility] [place] Start: 09-05-2022 Patient encounter procedure [facility] [place] [address] Start: 08-29-2022 End: 08-30-2023 Heparin Flush 100 unit/ mL Injectable Open Dosing ; via Groshong - MediportVolume = 5 mL IntraVenous Flush OnceClinician Notes: Upon final de-accessing of implanted port. Start: 29-Aug-2022 End: 29-Aug-2023 Ordered: 29-Aug-2022 Sally Johnson Intent Comments: Upon final de-accessing of implanted port. [facility] Comment on above: Upon final de-access ing of implanted port. Start: 08-10-2022 Pulmonary embolism Pulmonary e mbolism Date: 10-Aug-2022 [facility] Start: 08-10-2022 Swelling of both upp er extremities Swelling of both upper extremities Date: 10-Aug-2022 [facility] Start: 06-10-2021 COVID-19 Vaccine (4 - Moderna series) COVID-19 Vaccine (4 - Moderna series) [facility] Start: 05-17-2001 DTaP/Tdap/Td Vaccine s (1 - Tdap) DTaP/Tdap/Td Vaccines (1 - Tdap) [facility] Start: 05-17-1998 Hepatitis A Vaccines (1 of 2 - Risk 2-dose series) Hepatitis A Vaccines (1 of 2 - Risk 2-dose series) [facility] Start: 05-17-1997 Hepatitis C screening Hepatitis C Sc [facility] Start: 05-17-1985 Pneumococcal Vaccine : Pediatrics (0 to 5 Years) and At-Risk Patients (6 to 64 Years) (1 - PCV) Pneumococcal Vaccine: Pediatrics (0 to 5 Years) and At-Risk Patients (6 to 64 Years) (1 - PCV) [facility] Start: 05-17-1980 MMR Vaccines (1 of 1 - Standard series) MMR Vaccines (1 of 1 - Standard series) [facility] Start: 1979 Hepatitis B Vaccines (1 of 3 - 3-dose series) Hepatitis B Vaccines (1 of 3 - 3-dose series) [facility] Start: 1979 HIV screening HIV Screening [facility] Start: 1979 Yearly Adult Physical Yearly Adult P [facility] End: 12-22-2024 CTA Pulmonary arteries for pulmonary embolus W contrast IV CT CHEST W IVCON PE Radiology STAT 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) SOB (shortness of breath) 1 Occurrences starting 11/23/2023 until 12/22/2024 [facility] Comment on above: 1 Occurrences starti ng 11/23/2023 until 12/22/2024 End: 11-22-2024 ECHO WITH AGITATED SALINE CONTRAST ECHO WITH AGITATED SALINE CONTRAST Cardiology Routine 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) SOB (shortness of breath) 1 Occurrences starting 11/23/2023 until 11/22/2024 [facility] Comment on above: 1 Occurrences starti ng 11/23/2023 until 11/22/2024 End: 11-23-2022 Holter monitor study [facility] Service Area Work Phone: Comment on above: Once for 1 Occurrenc es starting 11/23/2022 until 11/23/2022 LUNG DIFFUSION CAPAC ITY (DLCO) LUNG DIFFUSION CAPACITY (DLCO) PFT Routine 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) SOB (shortness of breath) Ordered: 11/23/2023 [facility] Comment on above: Ordered: 11/23/2023 LUNG VOLUMES LUNG VOLUMES PFT Routine 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) SOB (shortness of breath) Ordered: 11/23/2023 [facility] Comment on above: Ordered: 11/23/2023 End: 12-22-2024 NM Lung Ventilation and Perfusion NM LUNG VENT / PERF VQ Radiology Routine 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) SOB (shortness of breath) 1 Occurrences starting 11/23/2023 until 12/22/2024 [facility] Comment on above: 1 Occurrences starti ng 11/23/2023 until 12/22/2024 SIX MINUTE WALK SIX MINUTE WALK PFT Routine 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) SOB (shortness of breath) Ordered: 11/23/2023 [facility] Comment on above: Ordered: 11/23/2023 SPIROMETRY WITH DILA TOR IF OBSTRUCTED SPIROMETRY WITH DILATOR IF OBSTRUCTED PFT Routine 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) SOB (shortness of breath) Ordered: 11/23/2023 [facility] Comment on above: Ordered: 11/23/2023 End: 11-22-2024 US Lower extremity veins - bilateral US LEG VEIN DVT [facility] Vascular Lab Routine 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) SOB (shortness of breath) 1 Occurrences starting 11/23/2023 until 11/22/2024 [facility] Comment on above: 1 Occurrences starti ng 11/23/2023 until 11/22/2024 Immunizations Immunization Date Immunization Notes Care Provider Fa cility 04-15-2021 SARS-CoV-2 (COVID-19 ) mRNA-[address] BHAVIK TRIANA MD [facility] 10-15-2020 SARS-CoV-2 (COVID-19 ) mRNA-[address] BHAVIK TRIANA MD [facility] Comment on above: Result Comment: 202007: [id number] 09-17-2020 SARS-CoV-2 (COVID-19 ) mRNA-[address] BHAVIK TRIANA MD [facility] Comment on above: Result Comment: 2020: [id number] Payers Date Payer Category Payer Self-pay 2023 Medicaid [id number] 2023 Unknown [id number] 2021 Unknown 2021 Unknown [id number] 1980 Unknown [id number] 2.16.8 40.1.736701.3.579.2.1046 1979 Unknown [id number] 2.16. 840.1.455519.3.579.2.356 1979 Unknown [id number] 2.16. 840.1.834514.3.579.2.356 1979 Unknown [id number] 2.16. 840.1.040944.3.579.2.356 1979 Unknown [id number] 2.16. 840.1.316027.3.579.2.356 1979 Unknown [id number] 2.16.84 0.1.853152.3.579.2.1245 1979 Unknown [id number] 2.16.84 0.1.043212.3.579.2.1245 1979 Unknown [id number] 2.16.8 40.1.387132.3.579.2.627 1979 Unknown [id number] 2.16.8 40.1.298032.3.579.2.627 1979 Unknown [id number] 2.16.8 40.1.011251.3.579.2.627 1979 Unknown [id number] 2.16.8 40.1.190638.3.579.2.627 1979 Unknown [id number] 2.16.8 40.1.979220.3.579.2. 1979 Unknown [id number] 2.16.8 40.1.715028.3.579.2. 1979 Unknown [id number] 2.16.8 40.1.931923.3.579.2. 1979 Unknown [id number] 2.16.8 40.1.156997.3.579.2. 1979 Unknown [id number] 2.16.8 40.1.404770.3.579.2. 1979 Unknown [id number] 2.16.8 40.1.154833.3.579.2. 1979 Unknown [id number] .16.8 40.1.926683.3.579.2. 1979 Unknown [id number] 2.16.8 40.1.872861.3.579.2. 1979 Unknown [id number] 2.16.8 40.1.692062.3.579.2. 1979 Unknown [id number] .16.8 40.1.364248.3.579.2. 1979 Unknown [id number] 2.16.8 40.1.844882.3.579.2. 1979 Unknown [id number] .16.8 40.1.085091.3.579.2. 1979 Unknown [id number] .16.8 40.1.038737.3.579.2. 1979 Unknown [id number] 2.16.8 40.1.148506.3.579.2. 1979 Unknown [id number] .16.8 40.1.602234.3.579.2. 1979 Unknown [id number] 2.16.8 40.1.832530.3.579.2. 1979 Unknown [id number] 2.16. 840.1.015535.3.579.2. 1979 Unknown [id number] 2.16. 840.1.329324.3.579.2. 1979 Unknown [id number] 2.16. 840.1.252142.3.579.2. 1979 Unknown [id number] 2.16. 840.1.931899.3.579.2. 1979 Unknown [id number] 2.16. 840.1.683852.3.579.2 1979 Unknown [id number] 2.16. 840.1.655165.3.579.2 1979 Unknown [id number] 2.16. 840.1.807977.3.579.2 1979 Unknown [id number] 2.16. 840.1.463263.3.579.2 1979 Unknown [id number] 2.16. 840.1.426414.3.579.2 1979 Unknown [id number] 2.16.8 40.1.804016.3.579.2 1979 Unknown [id number] 2.16.8 40.1.018198.3.579.2 1979 Unknown [id number] 2.16.8 40.1.437742.3.579.2 1979 Unknown [id number] 2.16.8 40.1.454814.3.579.2 1979 Unknown [id number] .16.8 40.1.341038.3.579.2 1979 Unknown [id number] 2.16.8 40.1.008701.3.579.2 1979 Unknown [id number] 2.16.8 40.1.153788.3.579.2.7 1979 Unknown [id number] 2.16.8 40.1.914359.3.579.2. 1979 Unknown [id number] 2.16. 840.1.515650.3.579.2. 1979 Unknown [id number] 2.16. 840.1.914901.3.579.2. 1979 Unknown [id number] 2.16. 840.1.727119.3.579.2. 1979 Unknown [id number] 2.16. 840.1.720826.3.579.2. 1979 Unknown [id number] 2.16. 840.1.984445.3.579.2. 1979 Unknown [id number] 2.16. 840.1.569728.3.579.2. 1979 Unknown [id number] 2.16. 840.1.765256.3.579.2. 1979 Unknown [id number] 2.16. 840.1.246934.3.579.2. 1979 Unknown [id number] 2.16. 840.1.003039.3.579.2. 1979 Unknown [id number] 2.16.8 40.1.549436.3.579.2. 1979 Unknown [id number] 2.16.8 40.1.341471.3.579.2. 1979 Unknown [id number] 2.16.8 40.1.182621.3.579.2. 1979 Unknown [id number] 2.16.8 40.1.233919.3.579.2. 1979 Unknown [id number] 2.16.8 40.1.468686.3.579.2. 1979 Unknown [id number] 2.16.8 40.1.505298.3.579.2.627 1979 Unknown [id number] 2.16.8 40.1.898465.3.579.2.627 1979 Unknown [id number] 2.16.8 40.1.478371.3.579.2.627 1979 Unknown [id number] 2.16.84 0.1.356228.3.579.2.7 1979 Unknown [id number] 2.16.840 .1.216500.3.579.2.1247 1979 Unknown [id number] 2.16.8 40.1.676572.3.579.2.651 1979 Unknown [id number] 2.16.8 40.1.762228.3.579.2.651 Unknown [id number] 2.16.8 40.1.580576.3.579.2.462 Social History Date Type Detail Facility Start: 08-07-2020 End: 07-26-2024 Heavy tobacco smoker (finding) [facility] Comment on above: Daily Tobacco/Smoke Exposure Sex Assigned At Male [facility] Tobacco smoking consumption unknown [facility] Work Phone: Start: 11-29-2022 Lives with father Lives with father [facility] Comment on above: One 6-pack two or th ree times a week; 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; 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; 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; Start: 09-02-2022 Tobacco smoking status Ex-smoker (fi nding) [facility] Comment on above: Daily Tobacco/Smoke Exposure Start: 11-29-2022 Patient Health Questionnaire 2 item (PHQ-2) [Reported] [facility] Start: 1980 Sex Assigned At Not on file [facility] Work Phone: Start: 11-19-2022 End: 11-29-2022 Exposure to SARS-CoV-2 (event) Not sure [facility] Start: 12-03-2020 Sex Male (finding) [facility] Start: 11-19-2024 End: 11-25-2024 Not applicable (qualifier value) [facility] Functional Status Date Assessment Result Facility 11-25-2024 Functional Status [facility] 11-25-2024 [facility] 11-19-2024 Functional Status Up ad zhou [facility] 06-05-2024 Functional Status Awake [facility] 04-30-2024 Functional Status Awake [facility] 04-02-2024 Functional Status Sensory Deficits None A [facility] 03-04-2024 Functional Status Awake [facility] 02-05-2024 Functional Status Watching TV [facility] 02-05-2024 Functional Status Repositions self [facility] 01-25-2024 Functional Status ID band on, Allergy Band on, Call device within reach, Bed in low position, Wheels locked, Upper/Half-Length side-rails up, personal items within reach, Bedside Cart Locked [facility] 12-21-2023 Functional Status ID band on, Call device within reach, personal items within reach, Non-Slip footwear [facility] 11-16-2023 Functional Status Up to chair [facility] 10-31-2023 Functional Status Up ad zhou [facility] 10-31-2023 Functional Status Independent [facility] 10-31-2023 Functional Status Maintained [facility] 10-26-2023 Functional Status Awake [facility] 10-19-2023 Functional Status Awake [facility] 09-25-2023 Functional Status Room check performed [facility] 09-25-2023 Functional Status Lunch Percent 100 [facility] 09-25-[address] [facility] 09-25-2023 Functional Status Done [facility] 09-25-[address] [facility] 09-25-[address] [facility] 09-24-2023 Functional Status Nurse Lisette goss q2hrs Performed 11pm-3am [facility] 09-24-2023 [facility] 09-24-2023 [facility] 09-24-2023 Functional Status [facility] 09-23-2023 Functional Status 100 [facility] 09-23-2023 Functional Status [facility] 09-23-2023 Functional Status [facility] 09-23-2023 Functional Status Supervision [facility] 09-23-2023 Functional Status [facility] 09-23-2023 Functional Status [facility] 09-22-2023 Functional Status [facility] 09-22-2023 Functional Status [facility] 09-22-2023 Functional Status [facility] 09-21-2023 Functional Status elevated on pillows [facility] 09-21-2023 Functional Status NPO Status Maintained A [facility] 09-21-2023 Functional Status [facility] 09-20-2023 Functional Status [facility] 09-20-2023 Functional Status [facility] 09-20-2023 Functional Status [facility] 09-19-2023 Functional Status [facility] 09-18-2023 Functional Status Single level home [facility] 09-18-2023 Functional Status Sensory Deficits None A [facility] 09-17-2023 Functional Status Repositions self [facility] 09-17-2023 [facility] Functional Status Nurse Safety Harriet goss q2hrs Performed 7am-7pm [facility] 09-17-2023 Functional Status [facility] 09-17-2023 Functional Status Lunch Percent 75 [facility] 09-17-2023 Functional Status Up to Chair Returned to bed [facility] 09-17-2023 Functional Status [facility] 09-17-2023 Functional Status Door open, toileting offered, supervised while toileting, Room check performed [facility] 09-16-2023 Functional Status bilateral knee high removed/off [facility] 09-16-2023 Functional Status Diogo [facility] 09-16-2023 Functional Status Diogo [facility] 09-16-2023 Functional Status [facility] 09-16-2023 Functional Status [facility] 09-15-2023 Functional Status [facility] 09-15-2023 Functional Status Diogo [facility] 09-15-2023 Functional Status Linen Change Done [facility] 09-14-2023 Functional Status Diogo [facility] 09-13-2023 Functional Status Diogo [facility] 09-13-2023 Functional Status Mobile home [facility] 09-13-2023 [facility] Status Hospital bed, turn and position system [facility] 08-31-2023 Functional Status Standard Safet y ID band on, Allergy Band on, Call device within reach, Bed in low position, Wheels locked, Upper/Half-Length side-rails up, Bedside Cart Locked, Safety level maintained [facility] 08-24-2023 Functional Status Awake [facility] 02-16-2023 Functional Status Awake, Up ad zhou [facility] 01-19-2023 Functional Status Awake, Up ad zhou [facility] 11-24-2022 Functional Status Repositions self [facility] 10-27-2022 Functional Status ID band on, Call device within reach [facility] 09-29-2022 Functional Status Awake [facility] 08-09-2022 Functional Status Room check performed [facility] 08-09-2022 [facility] 08-09-[facility] Functional Status Done [facility] 08-09-2022 Functional Status [facility]ariatric bed [facility] 08-08-[facility] Status [facility] 08-06-[facility]22 Functional Status SCD On/Re-appl ied bilateral knee [facility] 08-06-2022 Functional Status [facility]ogo [place] [facility] 08-06-2022 Functional Status SCD Removed/Of f bilateral knee [facility] 08-06-2022 Functional Status Mod I [facility] 08-06-2022 Functional Status Oral Care Independent [facility] 08-06-2022 [facility]05[facility] Functional Status [facility] 08-05-2022 Functional Status Di[facility] 08-05-2022 Functional Status [facility] 08-04-2022 Functional Status Diogo [place] [facility] 08-04-2022 Functional Status [facility] 08-04-2022 Functional Status [facility] 08-04-2022 Functional Status [facility] 08-03-2022 Functional Status NPO Status ice chips and sips taken [facility] 08-03-2022 Functional Status Ambulation in Room [facility] 08-03-2022 Functional Status [facility] 08-03-2022 Functional Status Supervised [facility] 08-02-2022 Functional Status Work [facility] 08-01-2022 Functional Status Sensory Deficits None [facility] 08-01-2022 Functional Status Standard Safet y ID band on, Allergy Band on, Call device within reach, Bed in low position, Wheels locked, Upper/Half-Length side-rails up, Bedside Cart Locked [facility] 08-01-2022 [facility] 06-09-[facility]22 [facility]-12-[facility] Functional Status Standard Safet y Safety level maintained [facility] 05-12-2022 Functional Status Awake, Up ad zhou [facility] 03-17-2022 Functional Status Resting [facility] 03-07-2022 Functional Status [facility] ad zhou [facility] 03-07-2022 Functional Status Maintained [facility] 01-26-2022 Functional Status Standard Safet y ID band on, Call device within reach, Bed in low position, Wheels locked, Upper/Half-Length side-rails up, Bedside Cart Locked, Safety level maintained [facility] 01-20-2022 Functional Status Remains up in chair [facility] 01-20-[address] [facility] 12-23-2021 Functional Status Awake [facility] 09-22-2021 Functional Status Standard Safet y Safety level maintained [facility] 09-22-2021 Functional Status Room check performed [facility] 08-03-2021 Functional Status Independent [facility] 06-30-2021 Functional Status [facility] 06-30-2021 Functional Status [facility] 06-02-2021 Functional Status [facility] Functional observable [facility] Mental Status Date Assessment Result Facility 11-19-2024 Mental Status Orientation Oriented x 4 [facility] 06-05-2024 Mental Status Orientation Oriented x 4 [facility] 03-04-2024 Mental Status Orientation Oriented x 4 [facility] 02-05-2024 Mental Status Orientation Oriented x 4 [facility] 01-25-2024 Mental Status Oriented x 4 [facility] 12-21-2023 Mental Status Orientation Oriented x 4 [facility] 11-16-2023 Mental Status Orientation Oriented x 4 [facility] 10-31-2023 Mental Status Orientation Oriented x 4 [facility] 10-31-2023 Mental Status [facility] 10-26-2023 Mental Status Oriented x 4 [facility] 09-25-2023 Mental Status Oriented x 4 [facility] 09-24-2023 Mental Status [facility] 09-17-2023 Mental Status Orientation Oriented x 4 [facility] 09-17-2023 Mental Status [facility] 09-16-2023 Mental Status [facility] 09-15-2023 Mental Status [facility] 08-31-2023 Mental Status Orientation Oriented x 4 [facility] 08-24-2023 Mental Status Orientation Oriented x 4 [facility] 02-16-2023 Mental Status Orientation Oriented x 4 [facility] 01-19-2023 Mental Status Orientation Oriented x 4 [facility] 10-27-2022 Mental Status Orientation Oriented x 4 [facility] 08-13-2022 Cognitive functi ons [id number] [facility] 08-09-2022 Mental Status Orientation Oriented x 4 [facility] 08-09-2022 Mental Status [facility] 08-09-2022 Mental Status [facility] 08-01-2022 Mental Status Oriented x 4 [facility] 08-01-2022 Mental Status [facility] 06-09-2022 Mental Status Orientation Oriented x 4 [facility] 05-12-2022 Mental Status Orientation Oriented x 4 [facility] 03-17-2022 Mental Status Orientation Oriented x 4 [facility] 03-07-2022 Mental Status Orientation Oriented x 4 [facility] 03-07-2022 Mental Status [facility] 01-26-2022 Mental Status Orientation Oriented x 4 [facility] 01-20-2022 Mental Status Orientation Oriented x 4 [facility] 09-22-2021 Mental Status Orientation Oriented x 4 [facility] 08-03-2021 Mental Status Oriented x 4 [facility] 06-30-2021 Mental Status [facility] 06-02-2021 Mental Status [facility] Clinical Notes 08-03-2021 to 11-19-2024 LaboratoryRadiology Note Date & Type Note Facility 11-19-2024 Summary of episode note LYNDSAY LOPEZ :1980 Visit Date:11/19/2024 Your Visit Summary Your Diagnosis Encounter for immunotherapy Metastatic renal cell carcinoma. S/P Left cytoreductive nephrectomy 08/14/20. 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 Metastatic renal cell carcinoma. S/P Left cytoreductive nephrectomy 08/14/20. 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 Tests Performed .Auto Differential .Estimated Glomerular Filtration Rate .Neutro Absolute CBC CMP Cortisol Level Free T3 Free T4 LDH TSH Your Care Team Attending Physician - BHAVIK TRIANA MD Primary Care Physician - PROSPER MANJARREZ DO Vitals Temperature (Oral) 97.5 F (36.4 C) Heart Rate 66 Respiratory Rate 18 Blood Pressure 144/78 Height 67.99 in (172.7 cm) Weight 289.30 lb (131.2 kg) BMI 43.99 What to do next Instructions From Your Doctor You have received the following therapy today: Chemotherapy/Immunotherapy Call your physician if any of the following problems occur: Nausea/Vomiting Mouth Sores Diarrhea Fever Prolonged bleeding or easy bruising Pain or discomfort at the injection site Scheduled Follow-Up Appointments Appointment Type When With Where Contact Information StatusPC Nurse Protime 11/27/2024 03:45 PM EDT [address] [phone] Confirmed INF/OSP Labwork 12/17/2024 10:30 AM EST Infusion Therapy Confirmed INF Chemo: Infusion 120 min (2 hours) 12/17/2024 11:45 AM EST Infusion Therapy Confirmed CT Chest w/o Contrast 12/31/2024 03:00 PM [facility] [phone] Chest w/o Contrast 01/07/2025 09:00 AM [facility] [phone] Confirmed HEM ONC OV Follow Up w/ Active Treatme 01/14/2025 08:45 AM BHAVIK SWAN MD [facility] Confirmed Medications What How Much When Why Instructions Unchanged amiodarone (amiodarone 200 mg oral tablet) 1 tab(s) by mouth Once a day Unchanged betamethasone-clotrimazole topical (betamethasone-clotrimazole 0.05%-1% topical cream) 1 application Topical Two (2) times a day Rash for 2 weeks then take 1 week off, may repeat if needed Unchanged empagliflozin (Jardiance 10 mg oral tablet) 1 tab(s) by mouth Once a day (in the morning) Unchanged famotidine (famotidine 20 mg oral tablet) See instructions 1 tab(s) Oral BID as needed for heart burn Unchanged furosemide (Lasix 40 mg oral tablet) 1 tab(s) by mouth Two (2) times a day Unchanged metoprolol (metoprolol tartrate 25 mg oral tablet) 1 tab(s) by mouth Two (2) times a day Unchanged ondansetron (Zofran 4 mg oral tablet) 1 tab(s) by mouth Every 6 hours as needed for Nausea/Vomiting Unchanged oxyCODONE (oxyCODONE 5 mg oral tablet ( IMMEDIATE release )) 1 tab(s) by mouth Every 6 hours as needed for for pain Cancer related pain Metastatic renal cell carcinoma. S/P Left cytoreductive nephrectomy 08/14/20. 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 may fill on Frequency increased Unchanged riociguat (Adempas 2.5 mg oral tablet) 1 tab(s) by mouth Three (3) times a day Unchanged senna (senna (sennosides) 8.6 mg oral tablet) 2 tab(s) by mouth Two (2) times a day as needed for as needed for constipation Unchanged spironolactone (Aldactone 25 mg oral tablet) 1 tab(s) by mouth Once a day Take with food Unchanged warfarin (warfarin 2 mg oral tablet) 1 tab(s) by mouth Once a day Unchanged warfarin (warfarin 4 mg oral tablet) 1 tab(s) by mouth Once a day 4mg tabs: 1 1/ 2 tabs MWF 2 tabs all other days Test Results .Auto Differential (11/19/2024) Neutrophil % - 58.5 % Lymphocyte % - 24.2 % Monocyte % - 8.2 % Eosinophil % - 8.4 % Basophil % - 0.7 % Lymphocyte, Absolute - 2.0 10^3/mcL Monocyte, Absolute - 0.7 10^3/mcL Eosinophil, Absolute - 0.7 10^3/mcL Basophil, Absolute - 0.1 10^3/mcL .Estimated Glomerular Filtration Rate (11/19/2024) Estimated Glomerular Filtration Rate - 79 ml/min/1.73sqm .Neutro Absolute (11/19/2024) Neutrophil, Absolute - 4.9 10^3/mcL CBC (11/19/2024) WBC - 8.3 10^3/mcL RBC - 5.21 10^6/mcL Hgb - 14.3 G/dL Hct - 44.2 % MCV - 84.7 fL MCH - 27.5 pg MCHC - 32.5 G/dL RDW - 18.1 % Platelet - 268 10^3/mcL MPV - 7.5 fL CMP (11/19/2024) Glucose Level - 81 mg/dL Sodium Level - 141 mEq/L Potassium Level - 4.1 mEq/L Chloride - 108 mEq/L CO2 - 23 mEq/L Electrolyte Balance - 10.0 mEq/L BUN - 10.0 mg/dL Creatinine Lvl (s) - 1.16 mg/dL BUN/Creatinine Ratio - 8.6 ratio Calcium Lvl - 8.3 mg/dL Total Protein - 6.6 G/dL Albumin Level - 3.4 G/dL Globulin - 3.2 G/dL A/G Ratio - 1.1 ratio Bili Total - 0.30 mg/dL Alk Phos - 82 U/L AST/SGOT - 17 U/L ALT/SGPT - 16 U/L Cortisol Level (11/19/2024) Cortisol Level - 12.1 mcg/dL Free T3 (11/19/2024) Free T3 - 3.49 pg/mL Free T4 (11/19/2024) Free T4 - 1.56 ng/dL LDH (11/19/2024) LDH - 188 U/L TSH (11/19/2024) TSH - 1.855 mIU/mL Allergies penicillin Swelling Additional Information VACCINATE! IT SAVES LIVES! Members of the community who have not yet received the COVID-19 vaccine and would like to receive it can visit one of [facility] vaccine clinics. There are many vaccine clinic locations within the [facility]. For locations and available times, please visit [email or web address] . It is important to note that some COVID mobile vaccine clinics are held outdoors and may be canceled in rainy or stormy conditions. To learn more about pediatric vaccinations (ages 5-11), we invite you to visit the [facility] webpage. [email or web address] To learn more about the COVID-19 vaccine, we invite you to visit the CDC website for a list of frequently asked questions. https://www.cdc.gov/coronavirus/2019 -ncov/vaccines/faq.html [facility] Patient Portal Access Instructions: Stay connected with your healthcare team and access your personal medical information anytime with the [facility] Patient Portal.If you would like a full copy of your medical records, please contact the [facility] Medical Records Department, Monday through Monday between 8a.m. and 4:30p.m. Please follow the directions below to access the portal: 1.Access the email account you provided upon registration to the hospital.2.Look for an invitation email from [facility].3.Open the email and access the invitation link: Accept Invitation to [facility].Fill in the required delaney to create your account. To access your account, visit [email or web address] or scan the yuilop SL code above. Click the blue button labeled "Access Patient Portal" and then log in with the username and password that you created in the steps above. You can then view a summary of results, a summary of your visits, and the ability to download your summaries to your computer or send the information securely to a physician. Remember that your healthcare information is confidential, so carefully consider who you will allow to register on the [facility] Patient Portal for access to your information. You can also access the [facility] Patient Portal on the Tourjive. Simply click on "Health Records" under "Health Data" and then click on the Plannify logo. HOW TO SAFELY DISPOSE OF PRESCRIPTION MEDICATIONS Please use one of the following methods to safely dispose of your unused medications. 1.Use a drug disposal kit: the drug disposal pouch allows you to safely discard your old and unused drugs. Ask your nurse to give you one when you are discharged.2.Visit a local take-back location: Many local pharmacies and police departments have programs that collect old and unwanted prescription drugs. Call your local pharmacy or go to http://Huan Xiong.Oddslife/8D6Bu0w to find one close to you.3.Make use of household items: Use cat litter or old coffee grounds to dispose medications if other options are not available. Mix your drugs with these household products, seal them in an airtight container and throw it into the garbage. Call [facility]: [phone] to be sure your drugs can be disposed of in this way. Some medicines may require a different approach.4.Never flush your medications down the toilet. IF YOU HAVE BEEN PRESCRIBED AN OPIOID FOR PAIN If you have been prescribed an opioid (such as hydrocodone, oxycodone or morphine), it is critical to understand the possible side effects and risks of opioid pain medications. Even when taken as directed, opioids can have several side effects including: Tolerance, meaning you might need to take more of a medication for the same pain relief. Nausea, vomiting and/or constipation. Sleepiness, dizziness, dry mouth, confusion, depression or itching. Physical dependence, meaning you have withdrawal symptoms when a medication is stopped, can develop within a few days. KNOW YOUR RESPONSIBILITIES It is important to know exactly how much and how often to take the opioid pain medications you are prescribed. Never take opioids in higher amounts or more often than prescribed. Do not combine opioids with alcohol or other drugs that cause drowsiness, such as benzodiazepines, also known as benzos, including diazepam and alprazolam, muscle relaxants or sleep aids. Never sell or share prescription opioids. This is illegal. Store opioids in a secure place and out of reach of others (including children, family, friends and visitors). The last page of this document has been signed and retained as a CHART COPY. Signatures Patient Education Materials Medication Leaflets My discharge plan and instructions have been reviewed and explained to me and IJESSICA DAVID D understand my current condition and have read and understand these discharge instructions. I have received a written copy of the plan/instructions. If I have questions, I am aware that I should contact my doctor. Patient/Record Keeper Signature: ___ Date/Time: Relationship to Patient: _ Witness Name/Signature: Date/Time: [facility] 10-22-2024 Note Chief Complaint pain History of Present Illness I saw the patient in infusion today. He has generally been doing okay since our last encounter. He does have ongoing pain particularly in his back. This has not changed in character though he has been using his oxycodone a bit more frequently than 3 times daily. He tends to run out near the end of the month. He has been tolerating his current treatment well. He denies any increasing shortness of breath, cough or hemoptysis. His weight has been stable. He denies any fever or chills. The wound on his right thigh has healed completely. He has noted some erythema on the left thigh and was started on antibiotic. He is also using a "draw out formula" to help with the wound. Review of Systems He denies any headache or loss of consciousness. He denies any chest pain or palpitations. He has chronic stable edema. He denies any increasing weight or abdominal girth. Physical Exam Vitals and Measurements T: 36.4 C (Oral) HR: 63 RR: 18 BP: 119/55 HT: 172.5 cm WT: 132.4 kg BMI: 44.49 And shows no rash. He has lower extremity edema. Pupils are reactive. Oral mucosa is moist. Lungs are clear. Heart sounds are regular. Abdomen is soft and nontender. It is very obese. He moves all extremities. He is awake and alert. Imaging Results and Diagnostics (10/08/2024 11:[address] Abdomen/Pelvis w/Oral Contrast Only) ORIGINAL EXAMINATION: CT OF THE ABDOMEN AND PELVIS WITHOUT CONTRAST 10/08/2024 12:01 pm TECHNIQUE: CT of the abdomen and pelvis was performed without the administration of intravenous contrast. Multiplanar reformatted images are provided for review. Automated exposure control, iterative reconstruction, and/or weight based adjustment of the mA/kV was utilized to reduce the radiation dose to as low as reasonably achievable. COMPARISON: 06/26/2024. HISTORY: ORDERING SYSTEM PROVIDED HISTORY: Reason for Exam: renal cancer surveillance renal cancer surveillance FINDINGS: Note: RECIST 1.1 is not applicable, as disease is not "evaluable" without IV contrast. LOWER CHEST: CT chest performed same day and reported separately. ORGANS: Scattered stable hepatic cysts. No focal liver lesions. Visualized portions of the spleen, pancreas, and adrenal glands demonstrate no acute abnormality. There is layering hyperdensity within the gallbladder which likely represents small stones or sludge. KIDNEYS AND URINARY TRACT: There is a left nephrectomy. Stable nephrectomy bed. The right kidney is unremarkable.No renal calculi are identified. No evidence for hydronephrosis. PELVIS: The bladder and pelvic organs are unremarkable. GI/BOWEL: No bowel obstruction. Scattered sigmoid diverticulosis diverticulitis. The appendix is unremarkable. There is a left posterolateral flank hernia which contains small the portions of the descending colon. PERITONEUM/RETROPERITONEUM: No lymphadenopathy is noted.No free air or free fluid.There is mild nonaneurysmal aortoiliac atherosclerosis. BONES/SOFT TISSUES: The osseous structures demonstrate no acute abnormality. Pathologic compression deformity of T11. Degenerative changes noted in the lumbar spine. IMPRESSION: Status post left nephrectomy with no evidence of new or recurrent disease. I have personally reviewed the images of this examination and agree with the resident's findings and interpretation. Interpreted by: Rachell Dennis MD Preliminary Report By: Lyndsay Wolfe MD Electronically signed By Rachell Dennis MD Dictated Date: 10/10/2024 8:52:56 AM Prelim Date: 10/10/2024 11:38:10 AM Sign Date: 10/10/2024 11:38:10 AM Ordering Provider: EZEQUIEL LEAL [1] Social History Alcohol - Medium Risk, 11/07/2016 Use: Past. Type: Beer. Frequency: 1-2 times per month. Previous treatment: Outpatient. Has alcohol use interfered with work or home life: No. Do you ever drink more than intended: Yes. Has anyone been hurt or at risk by your drinking: Yes. Ready to change: Yes., 07/26/2024 Employment/School Status: Employed., 12/16/2020 Home/Environment Living situation: Home with assistance. Safe place to go: Yes. Domestic Concerns: None. 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 Lives In: Single level home, 1st floor bedroom, 1st floor bathroom, 1st floor laundry. Current Home Treatments Blood Pressure monitoring. Marital Status: Unmarried., 07/26/2024 Nutrition/Health Type of diet: Regular. Appetite Fair. Eating Difficulties None., 12/21/2023 Caffeine intake amount: couple bottles a week., 10/20/2022 Substance Abuse - Denies Substance Abuse, 11/07/2016 Use: Current. Type: Marijuana. Frequency: 1-2 times per week. IV drug use; No. Ready to change: No. Concerns about substance abuse in household: No., 07/26/2024 Tobacco Nicotine Use: 10 or more cigarettes (1/2 pack or more)/day in last 30 days, Quit July; started again the end of August or beginning of September. Type: Cigarettes. Tobacco use per day: 15. Started at age: 13 Years. Ready to change: Yes. Smoking Cessation Information Instructed to not smoke day of surgery., 07/26/2024 Family History Bladder cancer: Negative: Mother, Father, Sister and Grandparent. Crohn's disease: Sister. Diabetes: Father. Gastrointestinal ulcer: Father. HTN - Hypertension: Mother and Father. Heart attack: Father. Heart disease: Negative: Mother, Father, Sister and Grandparent. Hypertension: Negative: Sister and Grandparent. Kidney disease: Negative: Mother, Father, Sister and Grandparent. Kidney stone: Mother and Sister.Negative: Father and Grandparent. Prostate cancer: Negative: Father. Renal cancer: Negative: Mother, Father, Sister and Grandparent. Rheumatoid arthritis: Mother. Health Status Family Member(s) Assessment/Plan 1. Palliative care encounter Plan to see him again in 1 month. 2. Cancer related pain I have renewed his oxycodone for use every 6 hours as needed. 3. Therapeutic opioid-induced constipation (OIC) 4. Metastatic renal cell carcinoma. S/P Left cytoreductive nephrectomy 08/14/20. 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 He continues on current treatment. There are some small nodules noted on CT scan that could be inflammatory or related to metastatic disease. Another CT scan has been ordered for December. In the meantime, no change in therapy was suggested. 5. Metastasis to bone 6. Pathologic fracture of vertebra The pathological fracture stable on his most recent CT scans. 7. Thigh abscess He appears to have a recurrence which is being attended to by his PCP. 8. Chronic obstructive pulmonary disease 9. Obesity hypoventilation syndrome The patient is still obese but his laboratories have shown that his serum bicarbonate has been consistently less than 32. He may not necessarily be retaining carbon dioxide at this time. 10. Heart failure with preserved ejection fraction Patient's heart failure was multifactorial and in large part probably related to his OHS. He has not seen his biology tutor up in [place] for some time. I did suggest that we ought to consider another sleep study to help with his sleep disordered breathing which would probably significantly improve his right heart function and previously documented pulmonary hypertension. I did talk to him about scheduling another sleep study and he is somewhat ambivalent at this point. I told him that we would talk about this at her next visit. It probably would be worthwhile to get another echocardiogram if he does not wish to schedule with the outside biology tutor. 11. Other secondary pulmonary hypertension 12. Paroxysmal atrial fibrillation 13. Obstructive sleep apnea 14. History of pulmonary embolism He continues on warfarin. 15. Obesity He has been able to hold off the weight that he lost last year. Return to Office Orders HEM ONC Return to Office - Future -- Opdivo, Follow Up w/JULIA Active Treatment, *Est. 11/19/24 +/- 4 day(s), Future Order, HEM ONC HEM ONC Return to Office - Future -- Opdivo, Follow Up w/JULIA Active Treatment, *Est. 12/17/24 +/- 4 day(s), Future Order, HEM ONC Medication Administration Given 9s1 100 mL + [id number] 480 mg, IV Piggyback. For: Metastatic renal cell carcinoma. S/P Left cytoreductive nephrectomy 08/14/20. 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 Problem List/Past Medical History Ongoing Abscess of right leg Cancer related pain History of pulmonary embolism Moderate major depression Morbid obesity due to excess calories Palliative care encounter Paroxysmal atrial fibrillation Postop check T11 vertebral fracture Therapeutic opioid-induced constipation (OIC) Tobacco abuse Cigarette smoker Active Lung nodule, multiple Active Marijuana user Active Secondary malignant neoplasm of bone (disorder) Active Historical Alcohol abuse Left renal mass. 9.6-cm. With perinephric fat invasion. With lytic bony lesion and pulmonary nodules concerning for mets. BS, 07/2020 - neg. CT brain, 07/2020 - neg. S/P Radical nephrectomy 08/14/20. Viral gastroenteritis Renal cell carcinoma (disorder) Active Procedure/Surgical History Incision AND drainage: 07/30/24 Drainage: 01/25/24 Pulmonary embolectomy: 08/18/22 Atriotomy: 08/18/22 Cardioversion: 07/2022 Implantable venous access port: 02/2022 Tooth extraction: 08/28/21 Nephrectomy, including partial ureterectomy, any open approach including rib resection; radical, with regional lymphadenectomy and/or vena caval thrombectomy: 08/14/20 Tonsillectomy: 1988 Chemotherapy Boost radiation therapy Allergies penicillin Swelling Medications What How Much When Why Instructions Last Dose Unchanged amiodarone (amiodarone 200 mg oral tablet) 1 tab(s) by mouth Once a day Unchanged betamethasone-clotrimazole topical (betamethasone-clotrimazole 0.05%-1% topical cream) 1 application Topical Two (2) times a day Rash for 2 weeks then take 1 week off, may repeat if needed Unchanged DME (DME MISCellaneous) See instructions Surgical wound present paper tape. 1 roll Unchanged DME (DME MISCellaneous) See instructions Surgical wound present 3x4 inch nonadherent bandage. #50 Unchanged DME (DME MISCellaneous) See instructions Surgical wound present 4x4 nonadherent gauze pads. 1 box. Unchanged empagliflozin (Jardiance 10 mg oral tablet) 1 tab(s) by mouth Once a day (in the morning) Unchanged famotidine (famotidine 20 mg oral tablet) See instructions 1 tab(s) Oral BID as needed for heart burn Unchanged FLUoxetine (FLUoxetine 10 mg oral capsule) 1 cap by mouth Once a day Unchanged furosemide (Lasix 40 mg oral tablet) 1 tab(s) by mouth Two (2) times a day Unchanged metoprolol (metoprolol tartrate 25 mg oral tablet) 1 tab(s) by mouth Two (2) times a day Unchanged ondansetron (Zofran 4 mg oral tablet) 1 tab(s) by mouth Every 6 hours as needed for Nausea/Vomiting Unchanged oxyCODONE (oxyCODONE 5 mg oral tablet ( IMMEDIATE release )) 1 tab(s) by mouth Every 8 hours as needed for for pain Cancer related pain Metastatic renal cell carcinoma. S/P Left cytoreductive nephrectomy 08/14/20. 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 Unchanged oxyCODONE (oxyCODONE 5 mg oral tablet ( IMMEDIATE release )) 1 tab(s) by mouth Every 8 hours as needed for for pain Cancer related pain Metastatic renal cell carcinoma. S/P Left cytoreductive nephrectomy 08/14/20. 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 may fill after Unchanged riociguat (Adempas 2.5 mg oral tablet) 1 tab(s) by mouth Three (3) times a day Unchanged senna (senna (sennosides) 8.6 mg oral tablet) 2 tab(s) by mouth Two (2) times a day as needed for as needed for constipation Unchanged spironolactone (Aldactone 25 mg oral tablet) 1 tab(s) by mouth Once a day Take with food Unchanged sulfamethoxazole-trimethoprim (sulfamethoxazole-trimethoprim 800 mg-160 mg oral tablet) 1 tab(s) by mouth Two (2) times a day Duration: 10 Days replace minocycline due to wound culture sensitivity Unchanged warfarin (warfarin 2 mg oral tablet) 1 tab(s) by mouth Once a day [1] CT Abdomen/Pelvis w/Oral Contrast Only; RACHELL DENNIS MD 10/08/2024 11:54 EDT Digitally Signed by LIAN FUNG MD on 10/22/2024 12:12 PM [facility] 10-22-2024 Summary of episode note LYNDSAY LOPEZ :1980 Visit Date:10/22/2024 Your Visit Summary Your Diagnosis Metastatic renal cell carcinoma. S/P Left cytoreductive nephrectomy 08/14/20. 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 Metastatic renal cell carcinoma. S/P Left cytoreductive nephrectomy 08/14/20. 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 Secondary malignant neoplasm of bone (disorder) Active Tests Performed .Auto Differential .Estimated Glomerular Filtration Rate .Neutro Absolute CBC CMP Cortisol Level Free T3 Free T4 LDH TSH Your Care Team Attending Physician - EZEQUIEL LEAL EKG MONITOR-WORD PROCESSING SPECIALIST Primary Care Physician - PROSPER MANJARREZ DO Vitals Temperature (Oral) 97.5 F (36.4 C) Heart Rate 63 Respiratory Rate 18 Blood Pressure 119/55 Height 67.91 in (172.5 cm) Weight 291.94 lb (132.4 kg) BMI 44.49 What to do next Instructions From Your Doctor You have received the following therapy today: Chemotherapy/Immunotherapy Call your physician if any of the following problems occur: Nausea/Vomiting Mouth Sores Diarrhea Fever Prolonged bleeding or easy bruising Pain or discomfort at the injection site Scheduled Follow-Up Appointments Appointment Type When With Where Contact Information StatusPC Nurse Protime 10/23/2024 02:15 PM EDT [facility] [place] [address] [place] [address] Confirmed PC OV 10/25/2024 02:00 PM EDT PROSPER MANJARREZ DO [facility] [place] Confirmed HEM ONC OV Follow Up w/ Active Treatme 11/19/2024 09:30 AM EDT BHAVIK TRIANA MD [facility] Confirmed Medications What How Much When Why Instructions Unchanged amiodarone (amiodarone 200 mg oral tablet) 1 tab(s) by mouth Once a day Unchanged betamethasone-clotrimazole topical (betamethasone-clotrimazole 0.05%-1% topical cream) 1 application Topical Two (2) times a day Rash for 2 weeks then take 1 week off, may repeat if needed Unchanged DME (DME MISCellaneous) See instructions Surgical wound present paper tape. 1 roll Unchanged DME (DME MISCellaneous) See instructions Surgical wound present 3x4 inch nonadherent bandage. #50 Unchanged DME (DME MISCellaneous) See instructions Surgical wound present 4x4 nonadherent gauze pads. 1 box. Unchanged empagliflozin (Jardiance 10 mg oral tablet) 1 tab(s) by mouth Once a day (in the morning) Unchanged famotidine (famotidine 20 mg oral tablet) See instructions 1 tab(s) Oral BID as needed for heart burn Unchanged FLUoxetine (FLUoxetine 10 mg oral capsule) 1 cap by mouth Once a day Unchanged furosemide (Lasix 40 mg oral tablet) 1 tab(s) by mouth Two (2) times a day Unchanged metoprolol (metoprolol tartrate 25 mg oral tablet) 1 tab(s) by mouth Two (2) times a day Unchanged ondansetron (Zofran 4 mg oral tablet) 1 tab(s) by mouth Every 6 hours as needed for Nausea/Vomiting Unchanged oxyCODONE (oxyCODONE 5 mg oral tablet ( IMMEDIATE release )) 1 tab(s) by mouth Every 8 hours as needed for for pain Cancer related pain Metastatic renal cell carcinoma. S/P Left cytoreductive nephrectomy 08/14/20. 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 Unchanged oxyCODONE (oxyCODONE 5 mg oral tablet ( IMMEDIATE release )) 1 tab(s) by mouth Every 8 hours as needed for for pain Cancer related pain Metastatic renal cell carcinoma. S/P Left cytoreductive nephrectomy 08/14/20. 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 may fill after Unchanged riociguat (Adempas 2.5 mg oral tablet) 1 tab(s) by mouth Three (3) times a day Unchanged senna (senna (sennosides) 8.6 mg oral tablet) 2 tab(s) by mouth Two (2) times a day as needed for as needed for constipation Unchanged spironolactone (Aldactone 25 mg oral tablet) 1 tab(s) by mouth Once a day Take with food Unchanged sulfamethoxazole-trimethoprim (sulfamethoxazole-trimethoprim 800 mg-160 mg oral tablet) 1 tab(s) by mouth Two (2) times a day Duration: 10 Days replace minocycline due to wound culture sensitivity Unchanged warfarin (warfarin 2 mg oral tablet) 1 tab(s) by mouth Once a day Test Results .Auto Differential (10/22/2024) Neutrophil % - 69.4 % Lymphocyte % - 14.0 % Monocyte % - 7.4 % Eosinophil % - 8.4 % Basophil % - 0.8 % Lymphocyte, Absolute - 1.4 10^3/mcL Monocyte, Absolute - 0.7 10^3/mcL Eosinophil, Absolute - 0.8 10^3/mcL Basophil, Absolute - 0.1 10^3/mcL .Estimated Glomerular Filtration Rate (10/22/2024) Estimated Glomerular Filtration Rate - 64 ml/min/1.73sqm .Neutro Absolute (10/22/2024) Neutrophil, Absolute - 6.9 10^3/mcL CBC (10/22/2024) WBC - 9.9 10^3/mcL RBC - 4.74 10^6/mcL Hgb - 13.4 G/dL Hct - 40.8 % MCV - 86.1 fL MCH - 28.2 pg MCHC - 32.7 G/dL RDW - 17.0 % Platelet - 245 10^3/mcL MPV - 6.9 fL CMP (10/22/2024) Glucose Level - 98 mg/dL Sodium Level - 141 mEq/L Potassium Level - 3.9 mEq/L Chloride - 107 mEq/L CO2 - 30 mEq/L Electrolyte Balance - 4.0 mEq/L BUN - 14.0 mg/dL Creatinine Lvl (s) - 1.38 mg/dL BUN/Creatinine Ratio - 10.1 ratio Calcium Lvl - 9.4 mg/dL Total Protein - 6.7 G/dL Albumin Level - 3.4 G/dL Globulin - 3.3 G/dL A/G Ratio - 1.0 ratio Bili Total - 0.40 mg/dL Alk Phos - 91 U/L AST/SGOT - 12 U/L ALT/SGPT - 11 U/L Cortisol Level (10/22/2024) Cortisol Level - 11.6 mcg/dL Free T3 (10/22/2024) Free T3 - 3.59 pg/mL Free T4 (10/22/2024) Free T4 - 1.50 ng/dL LDH (10/22/2024) LDH - 165 U/L TSH (10/22/2024) TSH - 3.249 mIU/mL Allergies penicillin Swelling Additional Information VACCINATE! IT SAVES LIVES! Members of the community who have not yet received the COVID-19 vaccine and would like to receive it can visit one of [facility] vaccine clinics. There are many vaccine clinic locations within the [facility]. For locations and available times, please visit [email or web address] . It is important to note that some COVID mobile vaccine clinics are held outdoors and may be canceled in rainy or stormy conditions. To learn more about pediatric vaccinations (ages 5-11), we invite you to visit the [facility] webpage. [email or web address]/pages [email or web address] To learn more about the COVID-19 vaccine, we invite you to visit the CDC website for a list of frequently asked questions. https://www.cdc.gov/coronavirus/2019 -ncov/vaccines/faq.html [email or web address] Patient Portal Access Instructions: Stay connected with your healthcare team and access your personal medical information anytime with the [facility] Patient Portal.If you would like a full copy of your medical records, please contact the [facility] Medical Records Department, Monday through Monday between 8a.m. and 4:30p.m. Please follow the directions below to access the portal: 1.Access the email account you provided upon registration to the [facility].2.Look for an invitation email from [facility].3.Open the email and access the invitation link: Accept Invitation to [facility].Fill in the required delaney to create your account. Sign into [email or web address] with your username and password that you created in the above steps to stay up to date. You can then view a summary of results, a summary of your visits, and the ability to download your summaries to your computer or send the information securely to a physician. Remember that your healthcare information is confidential, so carefully consider who you will allow to register on the [facility] Patient Portal for access to your information. You can also access the [facility] Patient Portal on the Tourjive. Simply click on "Health Records" under "Health Data" and then click on the Plannify logo. HOW TO SAFELY DISPOSE OF PRESCRIPTION MEDICATIONS Please use one of the following methods to safely dispose of your unused medications. 1.Use a drug disposal kit: the drug disposal pouch allows you to safely discard your old and unused drugs. Ask your nurse to give you one when you are discharged.2.Visit a local take-back location: Many local pharmacies and police departments have programs that collect old and unwanted prescription drugs. Call your local pharmacy or go to http://bit.Oddslife/3T1Kp9q to find one close to you.3.Make use of household items: Use cat litter or old coffee grounds to dispose medications if other options are not available. Mix your drugs with these household products, seal them in an airtight container and throw it into the garbage. Call [facility]: [phone] to be sure your drugs can be disposed of in this way. Some medicines may require a different approach.4.Never flush your medications down the toilet. IF YOU HAVE BEEN PRESCRIBED AN OPIOID FOR PAIN If you have been prescribed an opioid (such as hydrocodone, oxycodone or morphine), it is critical to understand the possible side effects and risks of opioid pain medications. Even when taken as directed, opioids can have several side effects including: Tolerance, meaning you might need to take more of a medication for the same pain relief. Nausea, vomiting and/or constipation. Sleepiness, dizziness, dry mouth, confusion, depression or itching. Physical dependence, meaning you have withdrawal symptoms when a medication is stopped, can develop within a few days. KNOW YOUR RESPONSIBILITIES It is important to know exactly how much and how often to take the opioid pain medications you are prescribed. Never take opioids in higher amounts or more often than prescribed. Do not combine opioids with alcohol or other drugs that cause drowsiness, such as benzodiazepines, also known as benzos, including diazepam and alprazolam, muscle relaxants or sleep aids. Never sell or share prescription opioids. This is illegal. Store opioids in a secure place and out of reach of others (including children, family, friends and visitors). The last page of this document has been signed and retained as a CHART COPY. Signatures Patient Education Materials Medication Leaflets My discharge plan and instructions have been reviewed and explained to me and IJESSICA DAVID D understand my current condition and have read and understand these discharge instructions. I have received a written copy of the plan/instructions. If I have questions, I am aware that I should contact my doctor. Patient/Record Keeper Signature: ___ Date/Time: Relationship to Patient: _ Witness Name/Signature: Date/Time: [facility] 10-19-2024 Note . MICRO - Microbiology PROCEDURE: Culture Wound Aerobic with Gram Stain [*1] SOURCE: Abscess BODY SITE: Buttock COLLECTED DATE/TIME: 10/16/2024 16:24 EDT RECEIVED DATE/TIME: 10/16/2024 19:03 EDT START DATE/TIME: 10/16/2024 19:03 EDT FREE TEXT SOURCE: FINAL REPORTS Final Report [] Verified Date/Time/Personnel: 10/19/2024 08:39 EDT Few Proteus mirabilis Light Group B Beta Hemolytic Strep (Strep agalactiae) Sensitivity testing is not recommended for one of the following reasons: 1. Established susceptibility patterns are available or 2. Interpretative criteria are not available. PRELIMINARY REPORTS Preliminary Report [] Verified Date/Time/Personnel: 10/18/2024 10:14 EDT Few Proteus mirabilis KEN to follow Light Group B Beta Hemolytic Strep (Strep agalactiae) Sensitivity testing is not recommended for one of the following reasons: 1. Established susceptibility patterns are available or 2. Interpretative criteria are not available. Preliminary Report [] Verified Date/Time/Personnel: 10/17/2024 11:05 EDT Culture results pending. STAINS GS [] Verified Date/Time/Personnel: 10/16/2024 19:27 EDT 1+ Polymorphonuclear cells 1+ Mononuclear cells 1+ Gram Positive Cocci SUSCEPTIBILITY RESULTS Proteus mirabilis Antibiotic KEN Dilut KEN Inter Amikacin <=16 Susceptible Amoxicillin/ <=8/4 Susceptible Clavulanate Ampicillin <=8 Susceptible Ampicillin/ <=4/2 Susceptible Sulbactam Aztreonam <=4 Susceptible Cefazolin <=2 Susceptible Cefepime <=2 Susceptible Ceftolozane/ <=2 Susceptible Tazobactam Ceftriaxone <=1 Susceptible Ciprofloxacin <=0.25 Susceptible Ertapenem <=0.5 Susceptible Gentamicin <=2 Susceptible ID Panel Not Not Applicable Applicable Levofloxacin <=0.5 Susceptible Meropenem <=1 Susceptible Minocycline >8 Resistant MICRO - Microbiology SUSCEPTIBILITY RESULTS Proteus mirabilis Antibiotic KEN Dilut KEN Inter Moxifloxacin <=2 Susceptible Piperacillin/ <=8 Susceptible Tazobactam Tetracycline >8 Resistant Trimethoprim/ <=0.5/9.5 Susceptible Sulfa Performing Locations *1: This test was performed at: [facility], [address] [place] [address], [id number] , [facility] 09-17-2024 Note Chief Complaint pain History of Present Illness I saw the patient in infusion today. Since our last encounter he did have a excision of the abscess on his right thigh. He was in the hospital for 2 days because of some bleeding postoperatively. It seems to have healed up well now. He feels that he is having more pain in his back. This often coincides with him being very physically active. Today he is having pain that is 5 out of 10. He is scheduled to have more scans later this month. He is having no other new problems. Review of Systems He reports occasional constipation that seems to go along with poor dietary choices. He denies any shortness of breath or cough. Send no chest pain or palpitations. He has no rash. Physical Exam Vitals and Measurements T: 36.2 C (Oral) HR: 60 BP: 125/78 HT: 172.7 cm WT: 133.6 kg BMI: 44.79 Skin shows no rash or edema. Pupils are reactive. Oral mucosa is moist. Lungs are clear. Heart sounds are regular but distant. Abdomen is soft and obese without tenderness. Moves all extremities. He is awake and alert. Social History Smoking Status - 11/07/2016 Current every day smoker Alcohol - Medium Risk, 11/07/2016 Use: Past. Type: Beer. Frequency: 1-2 times per month. Previous treatment: Outpatient. Has alcohol use interfered with work or home life: No. Do you ever drink more than intended: Yes. Has anyone been hurt or at risk by your drinking: Yes. Ready to change: Yes., 07/26/2024 Employment/School Status: Employed., 12/16/2020 Home/Environment Living situation: Home with assistance. Safe place to go: Yes. Domestic Concerns: None. 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 Lives In: Single level home, 1st floor bedroom, 1st floor bathroom, 1st floor laundry. Current Home Treatments Blood Pressure monitoring. Marital Status: Unmarried., 07/26/2024 Nutrition/Health Type of diet: Regular. Appetite Fair. Eating Difficulties None., 12/21/2023 Caffeine intake amount: couple bottles a week., 10/20/2022 Substance Abuse - Denies Substance Abuse, 11/07/2016 Use: Current. Type: Marijuana. Frequency: 1-2 times per week. IV drug use; No. Ready to change: No. Concerns about substance abuse in household: No., 07/26/2024 Tobacco Nicotine Use: 10 or more cigarettes (1/2 pack or more)/day in last 30 days, Quit July; started again the end of August or beginning of September. Type: Cigarettes. Tobacco use per day: 15. Started at age: 13 Years. Ready to change: Yes. Smoking Cessation Information Instructed to not smoke day of surgery., 07/26/2024 Family History Bladder cancer: Negative: Mother, Father, Sister and Grandparent. Crohn's disease: Sister. Diabetes: Father. Gastrointestinal ulcer: Father. HTN - Hypertension: Mother and Father. Heart attack: Father. Heart disease: Negative: Mother, Father, Sister and Grandparent. Hypertension: Negative: Sister and Grandparent. Kidney disease: Negative: Mother, Father, Sister and Grandparent. Kidney stone: Mother and Sister.Negative: Father and Grandparent. Prostate cancer: Negative: Father. Renal cancer: Negative: Mother, Father, Sister and Grandparent. Rheumatoid arthritis: Mother. Health Status Family Member(s) Assessment/Plan 1. Palliative care encounter I plan to see him again in 1 month. 2. Cancer-related pain I have renewed his oxycodone for October 04. 3. Therapeutic opioid-induced constipation (OIC) Use senna as needed. 4. Insomnia 5. Metastatic renal cell carcinoma. S/P Left cytoreductive nephrectomy 08/14/20. 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 He continues on current treatment with scans planned later this month. 5. Metastatic renal cell carcinoma. S/P Left cytoreductive nephrectomy 08/14/20. 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 6. Metastasis to bone 7. Abscess of right hip This appears to be healing. 8. Chronic obstructive pulmonary disease 9. Obesity hypoventilation syndrome 10. Heart failure with preserved ejection fraction 11. Other secondary pulmonary hypertension 12. Paroxysmal atrial fibrillation 13. Obstructive sleep apnea 14. Pulmonary embolism 15. Obesity Return to Office Orders HEM ONC Return to Office - Future -- Nivolumab Q28D, Follow Up w/ Active Treatment, *Est. 10/15/24 +/- 4 day(s), Future Order, day(s), HEM ONC Medication Administration Given 9s1 100 mL + [id number] 480 mg, IV Piggyback. For: Metastatic renal cell carcinoma. S/P Left cytoreductive nephrectomy 08/14/20. 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 Problem List/Past Medical History Ongoing Abscess of right leg Cancer related pain History of pulmonary embolism Metastatic renal cell carcinoma. S/P Left cytoreductive nephrectomy 08/14/20. 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 Moderate major depression Morbid obesity due to excess calories Palliative care encounter Paroxysmal atrial fibrillation Postop check T11 vertebral fracture Therapeutic opioid-induced constipation (OIC) Tobacco abuse Cigarette smoker Active Lung nodule, multiple Active Marijuana user Active Secondary malignant neoplasm of bone (disorder) Active Historical Alcohol abuse Left renal mass. 9.6-cm. With perinephric fat invasion. With lytic bony lesion and pulmonary nodules concerning for mets. BS, 07/2020 - neg. CT brain, 07/2020 - neg. S/P Radical nephrectomy 08/14/20. Viral gastroenteritis Renal cell carcinoma (disorder) Active Procedure/Surgical History Incision AND drainage: 07/30/24 Drainage: 01/25/24 Pulmonary embolectomy: 08/18/22 Atriotomy: 08/18/22 Cardioversion: 07/2022 Implantable venous access port: 02/2022 Tooth extraction: 08/28/21 Nephrectomy, including partial ureterectomy, any open approach including rib resection; radical, with regional lymphadenectomy and/or vena caval thrombectomy: 08/14/20 Tonsillectomy: 1988 Boost radiation therapy Chemotherapy Allergies penicillin Swelling Medications What How Much When Why Instructions Last Dose Unchanged amiodarone (amiodarone 200 mg oral tablet) 1 tab(s) by mouth Once a day Unchanged betamethasone-clotrimazole topical (betamethasone-clotrimazole 0.05%-1% topical cream) 1 application Topical Two (2) times a day Rash for 2 weeks then take 1 week off, may repeat if needed Unchanged DME (DME MISCellaneous) See instructions Surgical wound present paper tape. 1 roll Unchanged DME (DME MISCellaneous) See instructions Surgical wound present 3x4 inch nonadherent bandage. #50 Unchanged DME (DME MISCellaneous) See instructions Surgical wound present 4x4 nonadherent gauze pads. 1 box. Unchanged empagliflozin (Jardiance 10 mg oral tablet) 1 tab(s) by mouth Once a day (in the morning) Unchanged famotidine (famotidine 20 mg oral tablet) See instructions 1 tab(s) Oral BID as needed for heart burn Unchanged FLUoxetine (FLUoxetine 10 mg oral capsule) 1 cap by mouth Once a day Unchanged furosemide (Lasix 40 mg oral tablet) 1 tab(s) by mouth Two (2) times a day Unchanged metoprolol (metoprolol tartrate 25 mg oral tablet) 1 tab(s) by mouth Two (2) times a day Unchanged ondansetron (Zofran 4 mg oral tablet) 1 tab(s) by mouth Every 6 hours as needed for Nausea/Vomiting Unchanged oxyCODONE (oxyCODONE 5 mg oral tablet ( IMMEDIATE release )) 1 tab(s) by mouth Every 8 hours as needed for for pain Cancer related pain Metastatic renal cell carcinoma. S/P Left cytoreductive nephrectomy 08/14/20. 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 may fill after Unchanged oxyCODONE (oxyCODONE 5 mg oral tablet ( IMMEDIATE release )) 1 tab(s) by mouth Every 8 hours as needed for for pain Cancer related pain Metastatic renal cell carcinoma. S/P Left cytoreductive nephrectomy 08/14/20. 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 Unchanged riociguat (Adempas 2.5 mg oral tablet) 1 tab(s) by mouth Three (3) times a day Unchanged senna (senna (sennosides) 8.6 mg oral tablet) 2 tab(s) by mouth Two (2) times a day as needed for as needed for constipation Unchanged spironolactone (Aldactone 25 mg oral tablet) 1 tab(s) by mouth Once a day Take with food Unchanged warfarin (warfarin 2 mg oral tablet) 1 tab(s) by mouth Once a day Digitally Signed by LIAN FUNG MD on 09/17/2024 12:10 PM [facility] 09-17-2024 Summary of episode note JESSICA LYNDSAY Perez :1980 Visit Date:09/17/2024 Your Visit Summary Your Diagnosis Metastatic renal cell carcinoma. S/P Left cytoreductive nephrectomy 08/14/20. 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 Metastatic renal cell carcinoma. S/P Left cytoreductive nephrectomy 08/14/20. 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 Secondary malignant neoplasm of bone (disorder) Active Tests Performed .Auto Differential .Estimated Glomerular Filtration Rate .Neutro Absolute CBC CMP Cortisol Level Free T3 Free T4 TSH Your Care Team Attending Physician - BHAVIK TRIANA MD Primary Care Physician - PROSPER MANJARREZ DO Vitals Temperature (Oral) 97.2 F (36.2 C) Heart Rate 60 Blood Pressure 125/78 Height 67.99 in (172.7 cm) Weight 294.59 lb (133.6 kg) BMI 44.79 What to do next Instructions From Your Doctor You have received the following therapy today: Chemotherapy/Immunotherapy Call your physician if any of the following problems occur: Nausea/Vomiting Mouth Sores Diarrhea Fever Prolonged bleeding or easy bruising Pain or discomfort at the injection site Scheduled Follow-Up Appointments Appointment Type When With Where Contact Information StatusCT Chest w/o Contrast 10/08/2024 11:00 AM EDT [facility] [phone] Abdomen/Pelvis w/Oral Contrast Only 10/08/2024 11:30 AM EDT [facility] [phone] Confirmed PC Nurse Protime 10/14/2024 02:15 PM EDT [facility] Ivelisse Cao Confirmed HEM ONC OV Follow Up w/ Active Treatme 10/15/2024 09:15 AM EDT BHAVIK TRIANA MD [facility] Confirmed PC OV 10/25/2024 02:00 PM EDT PROSPER MANJARREZ DO [facility] Ivelisse Cao Confirmed Medications What How Much When Why Instructions Unchanged amiodarone (amiodarone 200 mg oral tablet) 1 tab(s) by mouth Once a day Unchanged betamethasone-clotrimazole topical (betamethasone-clotrimazole 0.05%-1% topical cream) 1 application Topical Two (2) times a day Rash for 2 weeks then take 1 week off, may repeat if needed Unchanged DME (DME MISCellaneous) See instructions Surgical wound present paper tape. 1 roll Unchanged DME (DME MISCellaneous) See instructions Surgical wound present 3x4 inch nonadherent bandage. #50 Unchanged DME (DME MISCellaneous) See instructions Surgical wound present 4x4 nonadherent gauze pads. 1 box. Unchanged empagliflozin (Jardiance 10 mg oral tablet) 1 tab(s) by mouth Once a day (in the morning) Unchanged famotidine (famotidine 20 mg oral tablet) See instructions 1 tab(s) Oral BID as needed for heart burn Unchanged FLUoxetine (FLUoxetine 10 mg oral capsule) 1 cap by mouth Once a day Unchanged furosemide (Lasix 40 mg oral tablet) 1 tab(s) by mouth Two (2) times a day Unchanged metoprolol (metoprolol tartrate 25 mg oral tablet) 1 tab(s) by mouth Two (2) times a day Unchanged ondansetron (Zofran 4 mg oral tablet) 1 tab(s) by mouth Every 6 hours as needed for Nausea/Vomiting Unchanged oxyCODONE (oxyCODONE 5 mg oral tablet ( IMMEDIATE release )) 1 tab(s) by mouth Every 8 hours as needed for for pain Cancer related pain Metastatic renal cell carcinoma. S/P Left cytoreductive nephrectomy 08/14/20. 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 may fill after Unchanged oxyCODONE (oxyCODONE 5 mg oral tablet ( IMMEDIATE release )) 1 tab(s) by mouth Every 8 hours as needed for for pain Cancer related pain Metastatic renal cell carcinoma. S/P Left cytoreductive nephrectomy 08/14/20. 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 Unchanged riociguat (Adempas 2.5 mg oral tablet) 1 tab(s) by mouth Three (3) times a day Unchanged senna (senna (sennosides) 8.6 mg oral tablet) 2 tab(s) by mouth Two (2) times a day as needed for as needed for constipation Unchanged spironolactone (Aldactone 25 mg oral tablet) 1 tab(s) by mouth Once a day Take with food Unchanged warfarin (warfarin 2 mg oral tablet) 1 tab(s) by mouth Once a day Test Results .Auto Differential (09/17/2024) Neutrophil % - 69.2 % Lymphocyte % - 16.1 % Monocyte % - 6.6 % Eosinophil % - 7.1 % Basophil % - 1.0 % Lymphocyte, Absolute - 1.6 10^3/mcL Monocyte, Absolute - 0.7 10^3/mcL Eosinophil, Absolute - 0.7 10^3/mcL Basophil, Absolute - 0.1 10^3/mcL .Estimated Glomerular Filtration Rate (09/17/2024) Estimated Glomerular Filtration Rate - 55 ml/min/1.73sqm .Neutro Absolute (09/17/2024) Neutrophil, Absolute - 6.8 10^3/mcL CBC (09/17/2024) WBC - 9.8 10^3/mcL RBC - 4.11 10^6/mcL Hgb - 12.2 G/dL Hct - 36.5 % MCV - 88.8 fL MCH - 29.7 pg MCHC - 33.4 G/dL RDW - 17.0 % Platelet - 288 10^3/mcL MPV - 7.3 fL CMP (09/17/2024) Glucose Level - 130 mg/dL Sodium Level - 141 mEq/L Potassium Level - 3.6 mEq/L Chloride - 106 mEq/L CO2 - 25 mEq/L Electrolyte Balance - 10.0 mEq/L BUN - 21.0 mg/dL Creatinine Lvl (s) - 1.57 mg/dL BUN/Creatinine Ratio - 13.4 ratio Calcium Lvl - 8.4 mg/dL Total Protein - 6.2 G/dL Albumin Level - 3.3 G/dL Globulin - 2.9 G/dL A/G Ratio - 1.1 ratio Bili Total - 0.40 mg/dL Alk Phos - 94 U/L AST/SGOT - 11 U/L ALT/SGPT - 9 U/L Cortisol Level (09/17/2024) Cortisol Level - 15.6 mcg/dL Free T3 (09/17/2024) Free T3 - 3.84 pg/mL Free T4 (09/17/2024) Free T4 - 1.51 ng/dL TSH (09/17/2024) TSH - 2.913 mIU/mL Allergies penicillin Swelling Additional Information VACCINATE! IT SAVES LIVES! Members of the community who have not yet received the COVID-19 vaccine and would like to receive it can visit one of [facility] vaccine clinics. There are many vaccine clinic locations within the [facility]. For locations and available times, please visit [email or web address] . It is important to note that some COVID mobile vaccine clinics are held outdoors and may be canceled in rainy or stormy conditions. To learn more about pediatric vaccinations (ages 5-11), we invite you to visit the [facility] webpage. [email or web address]/pages [email or web address] [email or web address] To learn more about the COVID-19 vaccine, we invite you to visit the CDC website for a list of frequently asked questions. https://www.cdc.gov/coronavirus/2019 -ncov/vaccines/faq.html [facility] [employer] Patient Portal Access Instructions: Stay connected with your healthcare team and access your personal medical information anytime with the [facility] Patient Portal.If you would like a full copy of your medical records, please contact the [facility] Medical Records Department, Monday through Monday between 8a.m. and 4:30p.m. Please follow the directions below to access the portal: 1.Access the email account you provided upon registration to the [facility].2.Look for an invitation email from [facility].3.Open the email and access the invitation link: Accept Invitation to [facility]4.Fill in the required delaney to create your account. Sign into [email or web address] with your username and password that you created in the above steps to stay up to date. You can then view a summary of results, a summary of your visits, and the ability to download your summaries to your computer or send the information securely to a physician. Remember that your healthcare information is confidential, so carefully consider who you will allow to register on the [facility] Patient Portal for access to your information. You can also access the [facility] Patient Portal on the [employer] julia. Simply click on "Health Records" under "Health Data" and then click on the [employer] logo. HOW TO SAFELY DISPOSE OF PRESCRIPTION MEDICATIONS Please use one of the following methods to safely dispose of your unused medications. 1.Use a drug disposal kit: the drug disposal pouch allows you to safely discard your old and unused drugs. Ask your nurse to give you one when you are discharged.2.Visit a local take-back location: Many local pharmacies and police departments have programs that collect old and unwanted prescription drugs. Call your local pharmacy or go to http://bit.ly/3C7Jd0i to find one close to you.3.Make use of household items: Use cat litter or old coffee grounds to dispose medications if other options are not available. Mix your drugs with these household products, seal them in an airtight container and throw it into the garbage. Call [facility]: [phone] to be sure your drugs can be disposed of in this way. Some medicines may require a different approach.4.Never flush your medications down the toilet. IF YOU HAVE BEEN PRESCRIBED AN OPIOID FOR PAIN If you have been prescribed an opioid (such as hydrocodone, oxycodone or morphine), it is critical to understand the possible side effects and risks of opioid pain medications. Even when taken as directed, opioids can have several side effects including: Tolerance, meaning you might need to take more of a medication for the same pain relief. Nausea, vomiting and/or constipation. Sleepiness, dizziness, dry mouth, confusion, depression or itching. Physical dependence, meaning you have withdrawal symptoms when a medication is stopped, can develop within a few days. KNOW YOUR RESPONSIBILITIES It is important to know exactly how much and how often to take the opioid pain medications you are prescribed. Never take opioids in higher amounts or more often than prescribed. Do not combine opioids with alcohol or other drugs that cause drowsiness, such as benzodiazepines, also known as benzos, including diazepam and alprazolam, muscle relaxants or sleep aids. Never sell or share prescription opioids. This is illegal. Store opioids in a secure place and out of reach of others (including children, family, friends and visitors). The last page of this document has been signed and retained as a CHART COPY. Signatures Patient Education Materials Medication Leaflets My discharge plan and instructions have been reviewed and explained to me and IJESSICA DAVID D understand my current condition and have read and understand these discharge instructions. I have received a written copy of the plan/instructions. If I have questions, I am aware that I should contact my doctor. Patient/Record Keeper Signature: ___ Date/Time: Relationship to Patient: _ Witness Name/Signature: Date/Time: [facility] 09-14-2024 Evaluation + Plan note Future Appointments Appointment Date:10/08/2024 11:00:00 AM Scheduled Provider: Location:[facility] Appointment Type:CT Chest w/o Contrast Appointment Date:10/08/2024 11:30:00 AM Scheduled Provider: Location:[facility] Appointment Type:CT Abdomen/Pelvis w/Oral Contrast Only Appointment Date:10/14/2024 02:15:00 PM Scheduled Provider: Location:[facility] Appointment Type:PC Nurse Protime Appointment Date:10/15/2024 08:30:00 AM Scheduled Provider: Location:[facility] Appointment Type:INF/OSP Labwork Appointment Date:10/15/2024 09:15:00 AM Scheduled Provider:BHAVIK TRIANA MD Location:HEM ONC Appointment Type:HEM ONC OV Follow Up w/ Active Treatme Appointment Date:10/15/2024 09:45:00 AM Scheduled Provider: Location:[facility] Appointment Type:INF Chemo: Infusion 120 min (2 hours) Appointment Date:10/15/2024 10:30:00 AM Scheduled Provider:LIAN FUNG MD Location:[facility] Palliative Appointment Type:PALL OV Follow Up Appointment Date:10/25/2024 02:00:00 PM Scheduled Provider:PROSPER MANJARREZ DO Location:[facility] Appointment Type:PC OV Future Scheduled TestsCortisol Level 10/15/24Basic Metabolic Panel 02/19/24Antinuclear Antibody Screen, Serum 10/06/23C-Reactive Protein 10/06/23Lactate Dehydrogenase 10/15/24yroid Stimulating Hormone 10/15/24Free T4 10/15/24Anti-Centromere Ab by IFA(RDL) 10/06/23Rheumatoid Factor 10/06/23Complete Blood Count 05/15/24Complete Blood Count 10/15/24Complete Blood Count 08/06/24Complete Blood Count 02/19/24Free T3 10/15/24Lipid Profile 05/15/24Lipid Profile 11/27/23IV 1/2 Ab 10/06/23Complete Metabolic Panel 05/15/24Complete Metabolic Panel 10/15/24Complete Metabolic Panel 11/27/23CT Abdomen/Pelvis w/Oral Contrast Only 8/26/25CT Femur w/o Contrast Right 03/04/24CT Thorax w/o Contrast 10/08/24CT Thorax w/o Contrast 01/11/24CT Thorax w/o Contrast 05/21/24CT Abdomen and Pelvis w/o contrast 01/11/24CT Abdomen and Pelvis w/o contrast 05/21/24 [facility] 08-07-2024 Summary of episode note LYNDSAY LOPEZ :1980 Visit Date:08/07/2024 Your Visit Summary Your Diagnosis Metastatic renal cell carcinoma. S/P Left cytoreductive nephrectomy 08/14/20. 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 Your Care Team Attending Physician - BHAVIK TRIANA MD Primary Care Physician - PROSPER MANJARREZ DO Vitals Weight 276.95 lb (125.6 kg) What to do next Instructions From Your Doctor You have received the following therapy today: Chemotherapy/Immunotherapy Call your physician if any of the following problems occur: Nausea/Vomiting Mouth Sores Diarrhea Fever Prolonged bleeding or easy bruising Pain or discomfort at the injection site Scheduled Follow-Up Appointments Appointment Type When With Where Contact Information StatusGS OV Post Op 08/08/2024 02:00 PM SKYT [facility] [place] Confirmed PC OV TCM 30 08/09/2024 11:00 AM EDT PROSPER MANJARREZ DO [facility] [place] Confirmed PALL OV Follow Up 08/28/2024 11:00 AM EDT LIAN FUNG MD Palliative Care Confirmed HEM ONC OV Follow Up w/EKG MONITOR Active Treat 09/17/2024 10:30 AM EDT EZEQUIEL LEAL EKG MONITOR-WORD PROCESSING SPECIALIST [facility] Confirmed Medications What How Much When Why Instructions Changed metroNIDAZOLE (metroNIDAZOLE 500 mg oral tablet) 1 tab(s) by mouth Three (3) times a day Duration: 14 Days Changed metroNIDAZOLE (metroNIDAZOLE 500 mg oral tablet) 1 tab(s) by mouth Every 8 hours Duration: 14 Days Unchanged amiodarone (amiodarone 200 mg oral tablet) 1 tab(s) by mouth Once a day Unchanged betamethasone-clotrimazole topical (betamethasone-clotrimazole 0.05%-1% topical cream) 1 application Topical Two (2) times a day Rash for 2 weeks then take 1 week off, may repeat if needed Unchanged empagliflozin (Jardiance 10 mg oral tablet) 1 tab(s) by mouth Once a day (in the morning) Duration: 30 Days Unchanged famotidine (famotidine 20 mg oral tablet) See instructions 1 tab(s) Oral BID as needed for heart burn Unchanged FLUoxetine (FLUoxetine 10 mg oral capsule) 1 cap by mouth Once a day Unchanged furosemide (Lasix 40 mg oral tablet) 1 tab(s) by mouth Two (2) times a day Unchanged metoprolol (metoprolol tartrate 25 mg oral tablet) 1 tab(s) by mouth Two (2) times a day Unchanged minocycline (minocycline 100 mg oral capsule) 1 cap by mouth Every 12 hours Duration: 14 Days Unchanged ondansetron (Zofran 4 mg oral tablet) 1 tab(s) by mouth Every 6 hours as needed for Nausea/Vomiting Unchanged oxyCODONE (oxyCODONE 5 mg oral tablet ( IMMEDIATE release )) 1 tab(s) by mouth Every 8 hours as needed for for pain Cancer related pain Metastatic renal cell carcinoma. S/P Left cytoreductive nephrectomy 08/14/20. 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 may fill after Unchanged oxyCODONE (oxyCODONE 5 mg oral tablet ( IMMEDIATE release )) 1 tab(s) by mouth Every 8 hours as needed for for pain Cancer related pain Metastatic renal cell carcinoma. S/P Left cytoreductive nephrectomy 08/14/20. 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 Unchanged riociguat (Adempas 2.5 mg oral tablet) 1 tab(s) by mouth Three (3) times a day Unchanged senna (senna (sennosides) 8.6 mg oral tablet) 2 tab(s) by mouth Two (2) times a day as needed for as needed for constipation Unchanged spironolactone (Aldactone 25 mg oral tablet) 1 tab(s) by mouth Once a day Take with food Unchanged warfarin (warfarin 2 mg oral tablet) 1 tab(s) by mouth Once a day Allergies penicillin Swelling Additional Information VACCINATE! IT SAVES LIVES! Members of the community who have not yet received the COVID-19 vaccine and would like to receive it can visit one of [facility] vaccine clinics. There are many vaccine clinic locations within the [facility]. For locations and available times, please visit [email or web address] . It is important to note that some COVID mobile vaccine clinics are held outdoors and may be canceled in rainy or stormy conditions. To learn more about pediatric vaccinations (ages 5-11), we invite you to visit the [facility] webpage. [email or web address] To learn more about the COVID-19 vaccine, we invite you to visit the CDC website for a list of frequently asked questions. https://www.cdc.gov/coronavirus/2019 -ncov/vaccines/faq.html [facility] [employer] Patient Portal Access Instructions: Stay connected with your healthcare team and access your personal medical information anytime with the [facility] Patient Portal.If you would like a full copy of your medical records, please contact the [facility] Medical Records Department, Monday through Monday between 8a.m. and 4:30p.m. Please follow the directions below to access the portal: 1.Access the email account you provided upon registration to the hospital.2.Look for an invitation email from [facility].3.Open the email and access the invitation link: Accept Invitation to [facility]4.Fill in the required delaney to create your account. Sign into [email or web address] with your username and password that you created in the above steps to stay up to date. You can then view a summary of results, a summary of your visits, and the ability to download your summaries to your computer or send the information securely to a physician. Remember that your healthcare information is confidential, so carefully consider who you will allow to register on the [facility] Patient Portal for access to your information. You can also access the [facility] Patient Portal on the [employer] julia. Simply click on "Health Records" under "Health Data" and then click on the [facility] logo. HOW TO SAFELY DISPOSE OF PRESCRIPTION MEDICATIONS Please use one of the following methods to safely dispose of your unused medications. 1.Use a drug disposal kit: the drug disposal pouch allows you to safely discard your old and unused drugs. Ask your nurse to give you one when you are discharged.2.Visit a local take-back location: Many local pharmacies and police departments have programs that collect old and unwanted prescription drugs. Call your local pharmacy or go to http://Huan Xiong.Oddslife/7T5Hf4n to find one close to you.3.Make use of household items: Use cat litter or old coffee grounds to dispose medications if other options are not available. Mix your drugs with these household products, seal them in an airtight container and throw it into the garbage. Call [facility]: [phone] to be sure your drugs can be disposed of in this way. Some medicines may require a different approach.4.Never flush your medications down the toilet. IF YOU HAVE BEEN PRESCRIBED AN OPIOID FOR PAIN If you have been prescribed an opioid (such as hydrocodone, oxycodone or morphine), it is critical to understand the possible side effects and risks of opioid pain medications. Even when taken as directed, opioids can have several side effects including: Tolerance, meaning you might need to take more of a medication for the same pain relief. Nausea, vomiting and/or constipation. Sleepiness, dizziness, dry mouth, confusion, depression or itching. Physical dependence, meaning you have withdrawal symptoms when a medication is stopped, can develop within a few days. KNOW YOUR RESPONSIBILITIES It is important to know exactly how much and how often to take the opioid pain medications you are prescribed. Never take opioids in higher amounts or more often than prescribed. Do not combine opioids with alcohol or other drugs that cause drowsiness, such as benzodiazepines, also known as benzos, including diazepam and alprazolam, muscle relaxants or sleep aids. Never sell or share prescription opioids. This is illegal. Store opioids in a secure place and out of reach of others (including children, family, friends and visitors). The last page of this document has been signed and retained as a CHART COPY. Signatures Patient Education Materials Medication Leaflets My discharge plan and instructions have been reviewed and explained to me and IJESSICA DAVID D understand my current condition and have read and understand these discharge instructions. I have received a written copy of the plan/instructions. If I have questions, I am aware that I should contact my doctor. Patient/Record Keeper Signature: ___ Date/Time: Relationship to Patient: _ Witness Name/Signature: Date/Time: [facility] 08-01-2024 Nurse Progress note I have assisted and/or overseen the care and medication administration for this patient by Piper MCDANIEL. I have reviewed and agree with her charting. Digitally Signed by Luzma Watson RN on 08/01/2024 01:18 PM [facility] 08-01-2024 Note Discharge Instructions Thank you for allowing [facility] to assist you with your healthcare needs. The following is important discharge information regarding your hospital visit. Your Care Team PROSPER MANJARREZ DO What to do next Instructions From Your Doctor Please change your dressing to your right thigh once a day. Take 1 dose of Lovenox today, 08/01/2024 Can begin Coumadin tomorrow, 08/02/2024 Can also begin using Lovenox twice a day tomorrow, 08/02/2024 Please follow-up with your PCP regarding Coumadin dosing Scheduled Follow-Up Appointments Appointment Type When With Where Contact Information StatusINF/OSP Labwork 08/07/2024 09:30 AM EDT Infusion Therapy Confirmed HEM ONC OV Follow Up w/ Active Treatme 08/07/2024 10:15 AM EDT BHAVIK TRIANA MD Hematology and Oncology Confirmed INF Chemo: Infusion 120 min (2 hours) 08/07/2024 10:30 AM EDT Infusion Therapy Confirmed GS OV Post Op 08/08/2024 02:00 PM EDT AISHWARYA HAMLIN [facility] General [facility] [place] Confirmed PALL OV Follow Up 08/28/2024 11:00 AM EDT LIAN FUNG MD Palliative Care Confirmed Follow Up Appointments Follow Up with Nicolas jo RN visit has been scheduled for 08/06 and 08/15. When:Within 1-2 days Follow Up with PROSPER MANJARREZ When:Within 1-2 days Where:[address] [facility] [place] [address]- [phone] Business (1) Follow Up with HOME MEDS- patient had home medication brought in. Please send home with patient. Follow Up with AISHWARYA HAMLIN MD, Surgery When:08/08/2024 02:00 PM EDT Where:[address] [place] [address]- Additional Information: Please call the office to schedule a hospital follow up appointment. The Following Activity and Diet Have Been Ordered for You Discharge Activity - Ordered -- May Shower, No heavy lifting greater than 10 to 15 pounds.May shower no tub baths, 07/31/24 12:30:00 EDT Discharge Diet - Ordered -- Type of Diet: Regular, 07/31/24 12:30:00 EDT The Following Equipment Has Been Ordered for You Discharge Home Equipment Discharge Wound Care - Ordered -- Leave incision open to air., 07/31/24 12:30:00 EDT The Following Treatments Have Been Ordered for You Discharge Labs No qualifying data available. Discharge Radiology No qualifying data available. Other Therapies No qualifying data available. Post Acute Orders No qualifying data available. Someone Will Contact You Regarding These Home Health Referrals No home referrals have been ordered for you. No one will call you. Allergies penicillin Swelling Medications Please ask your primary doctor or pharmacist before taking any other medication not listed, including over the counter drugs, herbal medications, vitamins and or supplements as they may interact with your home medications. What How Much When Why Instructions Last Dose Unchanged amiodarone (amiodarone 200 mg oral tablet) 1 tab(s) by mouth Once a day Unchanged betamethasone-clotrimazole topical (betamethasone-clotrimazole 0.05%-1% topical cream) 1 application Topical Two (2) times a day Rash for 2 weeks then take 1 week off, may repeat if needed Unchanged empagliflozin (Jardiance 10 mg oral tablet) 1 tab(s) by mouth Once a day (in the morning) Duration: 30 Days Unchanged famotidine (famotidine 20 mg oral tablet) See instructions 1 tab(s) Oral BID as needed for heart burn Unchanged furosemide (Lasix 40 mg oral tablet) 1 tab(s) by mouth Two (2) times a day Unchanged metoprolol (metoprolol tartrate 25 mg oral tablet) 1 tab(s) by mouth Two (2) times a day Unchanged metroNIDAZOLE (metroNIDAZOLE 500 mg oral tablet) 1 tab(s) by mouth Three (3) times a day Duration: 14 Days Pickup at [facility]pharmacy #[id number] Unchanged minocycline (minocycline 100 mg oral capsule) 1 cap by mouth Every 12 hours Duration: 14 [id number] Unchanged ondansetron (Zofran 4 mg oral tablet) 1 tab(s) by mouth Every 6 hours as needed for Nausea/Vomiting Unchanged oxyCODONE (oxyCODONE 5 mg oral tablet ( IMMEDIATE release )) 1 tab(s) by mouth Every 8 hours as needed for for pain Cancer related pain Metastatic renal cell carcinoma. S/P Left cytoreductive nephrectomy 08/14/20. 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 may fill after Unchanged oxyCODONE (oxyCODONE 5 mg oral tablet ( IMMEDIATE release )) 1 tab(s) by mouth Every 8 hours as needed for for pain Cancer related pain Metastatic renal cell carcinoma. S/P Left cytoreductive nephrectomy 08/14/20. 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 Unchanged riociguat (Adempas 2.5 mg oral tablet) 1 tab(s) by mouth Three (3) times a day Unchanged senna (senna (sennosides) 8.6 mg oral tablet) 2 tab(s) by mouth Two (2) times a day as needed for as needed for constipation Unchanged spironolactone (Aldactone 25 mg oral tablet) 1 tab(s) by mouth Once a day Take with food Unchanged warfarin (warfarin 2 mg oral tablet) 1 tab(s) by mouth Once a day Pharmacy Information [facility]/pharmacy #[id number]: [address], [place] [phone] Please take this list to your next doctor s visit. Bring all medications you take, including over the counter medications, herbals and other supplements with you to your doctor s visit. Patients and families are reminded to discard old lists and to update any records with all medication providers or retail pharmacies. Medication Leaflets minocycline (okdy michaud) Minocin, Minocin PAC, Solodyn, Ximino What is the most important information I should know about minocycline? Follow all directions on your medicine label and package. Tell each of your healthcare providers about all your medical conditions, allergies, and all medicines you use. What is minocycline? Minocycline is a tetracycline antibiotic that is used to treat many different bacterial infections, such as urinary tract infections, respiratory infections, skin infections, severe acne, gonorrhea, tick fever, chlamydia, and others. Minocycline may also be used for purposes not listed in this medication guide. What should I discuss with my healthcare provider before taking minocycline? You should not take this medicine if you are allergic to minocycline or to similar antibiotics such as demeclocycline, doxycycline, or tetracycline. If you are using minocycline to treat gonorrhea, your doctor may test you to make sure you do not also have syphilis, another sexually transmitted disease. Tell your doctor if you have ever had: liver disease; kidney disease; or asthma or sulfite allergy. You should not use minocycline if you are . It could harm the unborn baby or cause permanent tooth discoloration later in life. Use effective control to prevent while you are using this medicine, whether you are a man or a woman. Tell your doctor right away if a occurs while either the mother or the father is taking minocycline. The use of this medicine by either parent may cause tooth discoloration later in the baby's life. Minocycline can make control pills less effective. Ask your doctor about using a non-hormonal control (condom, diaphragm with spermicide) to prevent . Minocycline passes into breast milk and may affect bone and tooth development in a nursing baby. You should not breast-feed while you are taking minocycline. Do not give this medicine to a child without medical advice. Minocycline can cause permanent yellowing or graying of the teeth in children younger than 8 years old. How should I take minocycline? Follow all directions on your prescription label and read all medication guides or instruction sheets. Use the medicine exactly as directed. Take this medicine with a full glass of water. You may take minocycline with or without food. Do not crush, chew, or break an extended-release capsule or tablet. Swallow it whole. Use this medicine for the full prescribed length of time, even if your symptoms quickly improve. Skipping doses can increase your risk of infection that is resistant to medication. Minocycline will not treat a viral infection such as the flu or a common cold. If you use this medicine long-term, you may need frequent medical tests. You may also need to stop taking minocycline for a short time if you need surgery. This medicine can affect the results of certain medical tests. Tell any doctor who treats you that you are using minocycline. Store at room temperature away from moisture, heat, and light. Throw away any minocycline not used before the expiration date on the medicine label. What happens if I miss a dose? Take the medicine as soon as you can, but skip the missed dose if it is almost time for your next dose. Do not take two doses at one time. What happens if I overdose? Seek emergency medical attention or call the Poison Help line at . Overdose symptoms may include dizziness, nausea, or vomiting. What should I avoid while taking minocycline? For 2 hours before or after you take minocycline: Avoid taking antacids, laxatives, multivitamins, or supplements that contain calcium, magnesium, or iron. These other medicines can make it harder for your body to absorb minocycline. Avoid driving or hazardous activity until you know how this medicine will affect you. Your reactions could be impaired. Antibiotic medicines can cause diarrhea, which may be a sign of a new infection. If you have diarrhea that is watery or bloody, call your doctor. Do not use anti-diarrhea medicine unless your doctor tells you to. Minocycline could make you sunburn more easily. Avoid sunlight or tanning beds. Wear protective clothing and use sunscreen (SPF 30 or higher) when you are outdoors. What are the possible side effects of minocycline? Get emergency medical help if you have signs of an allergic reaction (hives, difficult breathing, fever, swollen glands, joint pain, swelling in your face or throat) or a severe skin reaction (fever, sore throat, burning in your eyes, skin pain, red or purple skin rash that spreads and causes blistering and peeling). Seek medical treatment if you have a serious drug reaction that can affect many parts of your body. Symptoms may include: skin rash, fever, swollen glands, muscle aches, severe weakness, unusual bruising, or yellowing of your skin or eyes. Call your doctor at once if you have: bronchospasm (wheezing, chest tightness, trouble breathing); a seizure; kidney problems--little or no urination, swelling in your feet or ankles, feeling tired or short of breath; low blood cell counts--fever, chills, tiredness, mouth sores, skin sores, easy bruising, unusual bleeding, pale skin, cold hands and feet, feeling light-headed or short of breath; increased pressure inside the skull--severe headaches, ringing in your ears, dizziness, vision problems, pain behind your eyes; or signs of liver or pancreas problems--loss of appetite, upper stomach pain (that may spread to your back), nausea or vomiting, loss of appetite, easy bruising or bleeding, dark urine, jaundice (yellowing of the skin or eyes). Common side effects may include: numbness, tingling, burning pain; hair loss; discoloration of you skin or nails. dizziness, spinning sensation; muscle or joint pain; nausea, diarrhea, loss of appetite; swollen tongue, cough, trouble swallowing; rash, itching; or headache. This is not a complete list of side effects and others may occur. Call your doctor for medical advice about side effects. You may report side effects to FDA at 7-748-CBD-1362. What other drugs will affect minocycline? Tell your doctor about all your other medicines, especially: isotretinoin; a penicillin antibiotic--amoxicillin, ampicillin, dicloxacillin, oxacillin, penicillin, ticarcillin, Amoxil, Moxatag, Augmentin, Principen, and others; a blood thinner--warfarin, Coumadin, Jantoven; or ergot medicine--dihydroergotamine, ergotamine, ergonovine, methylergonovine. This list is not complete. Other drugs may affect minocycline, including prescription and druo-eew-ghevukq medicines, vitamins, and herbal products. Not all possible drug interactions are listed here. Where can I get more information? Your pharmacist can provide more information about minocycline. Remember, keep this and all other medicines out of the reach of children, never share your medicines with others, and use this medication only for the indication prescribed. Every effort has been made to ensure that the information provided by [employer]') is accurate, up-to-date, and complete, but no guarantee is made to that effect. Drug information contained herein may be time sensitive. [employer] information has been compiled for use by healthcare practitioners and consumers in the [place] and therefore [employer] does not warrant that uses outside of the [place] are appropriate, unless specifically indicated otherwise. [employer] drug information does not endorse drugs, diagnose patients or recommend therapy. [employer] drug information is an informational resource designed to assist licensed healthcare practitioners in caring for their patients and/or to serve consumers viewing this service as a supplement to, and not a substitute for, the expertise, skill, knowledge and judgment of healthcare practitioners. The absence of a warning for a given drug or drug combination in no way should be construed to indicate that the drug or drug combination is safe, effective or appropriate for any given patient. [employer] does not assume any responsibility for any aspect of healthcare administered with the aid of information [employer] provides. The information contained herein is not intended to cover all possible uses, directions, precautions, warnings, drug interactions, allergic reactions, or adverse effects. If you have questions about the drugs you are taking, check with your doctor, nurse or pharmacist. Copyright 2445-2654 [employer]. Version: 17.01. Revision Date: 09/15/2022. oxycodone (ox i KOE done) Oxaydo, OxyCONTIN, Roxicodone, RoxyBond, Xtampza ER What is the most important information I should know about oxycodone? MISUSE OF OPIOID MEDICINE CAN CAUSE ADDICTION, OVERDOSE, OR . Fatal side effects may occur if you also drink alcohol or use other drugs that cause drowsiness or slow breathing. Using opioid medicine during may cause life-threatening withdrawal symptoms in the . What is oxycodone? Oxycodone is an opioid pain medication used to treat moderate to severe pain. Oxycodone is usually given after other treatments did not work or were not tolerated. Extended-release oxycodone is for johovy-gwb-tijxu treatment of severe and chronic pain that requires longer treatment. This medicine is not for use on an as-needed basis. Oxycodone may also be used for purposes not listed in this medication guide. What should I discuss with my healthcare provider before taking oxycodone? You should not use oxycodone if you are allergic to it, or if you have severe asthma, breathing problems or a stomach or bowel obstruction (including paralytic ileus). Tell your doctor if you have ever had: other breathing problems, sleep apnea (breathing that stops during sleep); a head injury, brain tumor, high pressure inside the skull, or seizures, drug or alcohol addiction, or mental illness; if you have used an MAO inhibitor in the past 14 days, such as isocarboxazid, linezolid, methylene blue injection, phenelzine, or tranylcypromine; urination problems, problems with your gallbladder, pancreas, thyroid, or adrenal gland; or liver or kidney disease. Most forms of oxycodone are not approved for use in people under 18 years old. The extended-release tablets should not be given to a child younger than 11 years old. Tell your doctor if you also use stimulant medicine, opioid medicine, herbal products, or medicine for depression, mental illness, Parkinson's disease, migraine headaches, serious infections, or prevention of nausea and vomiting. An interaction with oxycodone could cause a serious condition called serotonin syndrome. May harm an unborn baby. Tell your doctor if you are or plan to become . If you use oxycodone during , your baby could be born with life-threatening withdrawal symptoms, and may need medical treatment for several weeks. Do not breastfeed. Oxycodone in breast milk can cause life-threatening side effects in a nursing baby. Long-term oxycodone may affect fertility in men or women. could be harder to achieve while either parent is using this medicine. How should I take oxycodone? Follow the directions on your prescription label and read all medication guides or instruction sheets. Never use oxycodone in larger amounts, or for longer than prescribed. Tell your doctor if you feel an increased urge to use more of this medicine. Never share opioid medicine with another person, especially someone with a history of drug addiction. MISUSE CAN CAUSE ADDICTION, OVERDOSE, OR . Keep the medicine where others cannot get to it. Selling or giving away this medicine is against the law. Never crush a pill or use the liquid to inhale the mixture or inject it into your vein. This could result in . Your dose needs may change if you switch to a different brand, strength, or form of this medicine. Avoid medication errors by using exactly as directed on the label, or as prescribed by your doctor. Stop taking all other ttdqnx-fty-scuql opioid pain medicines when you start taking extended-release oxycodone. Swallow the extended-release forms whole to avoid exposure to a potentially fatal overdose. Do not crush, chew, break, open, or dissolve. Take the extended-release capsules with food. Read and carefully follow the instructions for use on how to prepare and take this medicine if you cannot swallow extended release capsules whole or you use a feeding tube. Ask your doctor or pharmacist if you don't understand these instructions. Measure liquid medicine with the supplied measuring device (not a kitchen spoon). You may be given other medications to help prevent or treat certain side effects. You may have withdrawal symptoms if you stop using oxycodone suddenly. Ask your doctor before stopping the medicine. Store at room temperature away from moisture and heat. Keep your medicine in a place where no one can use it improperly. Do not keep leftover medicine. Just one dose can cause in someone using it accidentally or improperly. Ask your pharmacist about a drug take-back program, or flush the unused medicine down the toilet. What happens if I miss a dose? Since oxycodone is used for pain, you are not likely to miss a dose. Skip any missed dose if it is almost time for your next dose. Do not use two doses at one time. What happens if I overdose? Seek emergency medical attention or call the Poison Help line at . An overdose can be fatal, especially in a child or person using opioid medicine without a prescription. Your doctor may recommend you get naloxone (a medicine to reverse an opioid overdose) and keep it with you at all times. A person caring for you can give the naloxone if you stop breathing or don't wake up. Your caregiver must still get emergency medical help and may need to perform CPR (cardiopulmonary resuscitation) on you while waiting for help to arrive. Anyone can buy naloxone from a pharmacy or local health department. Make sure any person caring for you knows where you keep naloxone and how to use it. What should I avoid while taking oxycodone? Do not drink alcohol or any products that contain alcohol. Dangerous side effects or could occur. Avoid driving or hazardous activity until you know how this medicine will affect you. Dizziness or drowsiness can causing falls, accidents, or severe injuries. Also avoid getting up too fast from a sitting or lying position, or you may feel dizzy. What are the possible side effects of oxycodone? Get emergency medical help if you have signs of an allergic reaction: hives, difficult breathing, swelling of your face, lips, tongue, or throat. Opioid medicine can slow or stop your breathing, and may occur, especially if you drink alcohol or use other drugs that cause drowsiness or slow breathing. A person caring for you should give naloxone and/or seek emergency medical attention if you have slow breathing with long pauses, blue colored lips, or if you are hard to wake up. Call your doctor at once if you have: slow heart rate, weak pulse, fainting, slow breathing (breathing may stop); chest pain, fast or pounding heartbeats; a seizure, extreme drowsiness; or decreased adrenal gland hormones--nausea, vomiting, stomach pain, loss of appetite, feeling tired or light-headed, muscle or joint pain, skin discoloration, craving salty foods. Serious breathing problems may be more likely in older adults and in those who are debilitated or have wasting syndrome or chronic breathing disorders. Seek medical attention right away if you have symptoms of serotonin syndrome, such as: agitation, hallucinations, fever, sweating, shivering, fast heart rate, muscle stiffness, twitching, loss of coordination, nausea, vomiting, or diarrhea. Common side effects may include: sleep problems (insomnia), itching; drowsiness, headache, dizziness, tiredness; or constipation, stomach pain, nausea, vomiting. This is not a complete list of side effects and others may occur. Call your doctor for medical advice about side effects. You may report side effects to FDA at 5-616-ZMW-0197. What other drugs will affect oxycodone? You may have a fatal oxycodone overdose if you start or stop using certain medicines. Tell your doctor about all your medications. Tell your doctor about all your medications especially if you use medicine to treat HIV, antibiotic, antifungal medication, or seizure medication. Many other drugs can be dangerous when used with opioid medicine. Tell your doctor if you also use: medicine for allergies, asthma, blood pressure, motion sickness, irritable bowel, or overactive bladder; other opioid medicines, a benzodiazepine sedative like Valium, Klonopin, or Xanax; sleep medicine, muscle relaxers, or other drugs that make you drowsy; or drugs that affect serotonin, such as antidepressants, stimulants, or medicine for migraines or Parkinson's disease. This list is not complete and many other drugs may affect oxycodone. This includes prescription and ubzn-dch-aakumds medicines, vitamins, and herbal products. Not all possible drug interactions are listed here. Where can I get more information? Your doctor or pharmacist can provide more information about oxycodone. Remember, keep this and all other medicines out of the reach of children, never share your medicines with others, and use this medication only for the indication prescribed. Every effort has been made to ensure that the information provided by [employer]. [employer]') is accurate, up-to-date, and complete, but no guarantee is made to that effect. Drug information contained herein may be time sensitive. [employer] information has been compiled for use by healthcare practitioners and consumers in the [place] and therefore [employer] does not warrant that uses outside of the [place] are appropriate, unless specifically indicated otherwise. [employer]'s drug information does not endorse drugs, diagnose patients or recommend therapy. [employer] drug information is an informational resource designed to assist licensed healthcare practitioners in caring for their patients and/or to serve consumers viewing this service as a supplement to, and not a substitute for, the expertise, skill, knowledge and judgment of healthcare practitioners. The absence of a warning for a given drug or drug combination in no way should be construed to indicate that the drug or drug combination is safe, effective or appropriate for any given patient. [employer] does not assume any responsibility for any aspect of healthcare administered with the aid of information [employer] provides. The information contained herein is not intended to cover all possible uses, directions, precautions, warnings, drug interactions, allergic reactions, or adverse effects. If you have questions about the drugs you are taking, check with your doctor, nurse or pharmacist. Copyright 9248-5935 [employer]. Version: 17.. Revision Date: 03/07/2023. Education Materials What to Do After Your General Surgery This sheet will give you general information on what to do when you are home after surgery. However, you should always follow any specific instructions given to you by your surgeon. Pain Medication Please follow the directions on the label of your medication and use your discharge medication list provided by the hospital. Do not take pain medication on an empty stomach. This may cause a stomachache. Constipation is common while taking oral pain medication after surgery. Use a stool softener (Colace) or gentle laxative (milk of magnesia) if needed. As soon as your pain allows, use less of any narcotic pain medication. You may take xbcb-oud-zohmxfs pain medication if you no longer need your prescribed pain medication. Jgzk-ijv-ofpltqa pain medications are Tylenol or Advil/Motrin (ibuprofen). Do not take Tylenol if you are still taking [place] or Percocet. They are the same type of medication, and too much acetaminophen can hurt your liver. Activity It is OK to use stairs. Do not lift more than 15 pounds. After surgery, you may feel tired. Rest is important for healing. Slowly increase your activity level by walking and doing normal activities as you feel comfortable. Do not drive while taking narcotic pain medication. They should be out of your system for [address]. Diet Eating smaller meals instead of three large meals is good. This may help with your appetite and nutrition. Good nutrition will help you heal. Follow diet instructions that you were taught after surgery. Infection Prevention Washing your hands is one of the best ways to prevent infection. Always wash your hands before and after touching your incision or bandage. Hands carry germs that can cause infections. Try not to touch your incision. Keep the Incision Clean Wear clean, loose-fitting clothes to prevent clothes from rubbing on the incision. Put clean sheets on your bed when you get home. Do not let other people or animals touch the incision. Showering You may start to shower 48 hours after your surgery. Use a clean washcloth and towel on your incision before you use it on any other area of your body. Adjust the shower spray to gentle and use warm water. Gently wash over your incision using antibacterial soap and water and pat it dry. Do not rub the incision. Do not soak or submerge in the bathtub or hot tub until your surgeon says it is OK. Wound Care If you have a clear, see-through bandage over your incision(s), you may shower with it in place. The bandage is waterproof. o It is normal to see a small amount of reddish fluid under the clear bandage. You may remove your bandage after 48 hours. If you are in the hospital longer than 48 hours, it is OK to remove your bandage when you get home. If you have thin white tape strips (Steri-Strips) over your incision, keep them dry. Do not remove them unless they begin curling up at the sides and are almost falling off. [place] or sutures are generally removed within seven to 14 days at your follow-up appointment. Drain Care If you have a drain, empty it two to three times per day or if it gets half full. Write down the time it was emptied and amount of fluid on a piece of paper. Bring your paper with times and fluid amounts to your follow-up appointment to show your surgeon. Call Your Doctor If: You have a fever of 101 degrees or higher. It is not uncommon to have a low-grade fever after surgery. You have new redness or fluid around the incision that smells bad or looks like pus. Your skin is very painful, red, warm and/or swollen around the incision. You have a lot of bleeding (push with pressure on the area if this happens). You have bad stomach pain or you start throwing up. If you are unable to reach your surgeon, go to the hospital. Follow Up If a follow-up appointment has not been made, please call your surgeon s office. Most appointments are 10 14 days after surgery. If you have any problems or concerns before then, call the surgeon s office. Additional Information VACCINATE! IT SAVES LIVES! Members of the community who have not yet received the COVID-19 vaccine and would like to receive it can visit one of [facility] vaccine clinics. There are many vaccine clinic locations within the [facility]. For locations and available times, please visit [email or web address] It is important to note that some COVID mobile vaccine clinics are held outdoors and may be canceled in rainy or stormy conditions. To learn more about pediatric vaccinations (ages 5-11), we invite you to visit the [facility] webpage. [email or web address]/pages [email or web address] [email or web address] To learn more about the COVID-19 vaccine, we invite you to visit the CDC website for a list of frequently asked questions.https://www.cdc.gov/deluca virus/2019-ncov/vaccines/faq.html [facility] [employer] [employer] Patient Portal Access Instructions: Stay connected with your healthcare team and access your personal medical information anytime with the [facility] [employer] Patient Portal. Please follow the directions below to create your [employer] account: 1.Access the email account you provided upon registration to the hospital/physician office.2.Look for an invitation email from [facility].3.Open the email and access the invitation link: Accept Invitation to [facility].4.Fill in the required delaney to create your account. To access your account, visit [employer]. Click the blue button labeled "Access Patient Portal" and then log in with the username and password that you created in the steps above. You will be able to view your test results, lab results, a summary of your visits, upcoming appointments and more. There is also a convenient messaging option where you can send secure messages to your provider. In addition, you will have the ability to download any documents or summaries to your computer and/or send the information securely to a physician. Remember that your healthcare information is confidential, so carefully consider who you will allow to register on the [facility] [employer] Patient Portal for access to your information. You can also access the [facility] Patient Portal on the [employer] julia. Simply click on "Patient Portal" and then log into your account. If you would like to receive a full copy of your medical records, please contact the [facility] Medical Records Department by calling [phone], Monday through Monday between 8 a.m. and 4:30 p.m. HOW TO SAFELY DISPOSE OF PRESCRIPTION MEDICATIONS Please use one of the following methods to safely dispose of your unused medications. 1.Use a drug disposal kit: the drug disposal pouch allows you to safely discard your old and unused drugs. Ask your nurse to give you one when you are discharged.2.Visit a local take-back location: Many local pharmacies and police departments have programs that collect old and unwanted prescription drugs. Call your local pharmacy or go to http://Huan Xiong.Oddslife/3Y0Mx9w to find one close to you.3.Make use of household items: Use cat litter or old coffee grounds to dispose medications if other options are not available. Mix your drugs with these household products, seal them in an airtight container and throw it into the garbage. Call [facility]: [phone] to be sure your drugs can be disposed of in this way. Some medicines may require a different approach.4.Never flush your medications down the toilet. IF YOU HAVE BEEN PRESCRIBED AN OPIOID FOR PAIN If you have been prescribed an opioid (such as hydrocodone, oxycodone or morphine), it is critical to understand the possible side effects and risks of opioid pain medications. Even when taken as directed, opioids can have several side effects including: Tolerance, meaning you might need to take more of a medication for the same pain relief. Nausea, vomiting and/or constipation. Sleepiness, dizziness, dry mouth, confusion, depression or itching. Physical dependence, meaning you have withdrawal symptoms when a medication is stopped, can develop within a few days. KNOW YOUR RESPONSIBILITIES It is important to know exactly how much and how often to take the opioid pain medications you are prescribed. Never take opioids in higher amounts or more often than prescribed. Do not combine opioids with alcohol or other drugs that cause drowsiness, such as benzodiazepines, also known as benzos, including diazepam and alprazolam, muscle relaxants or sleep aids. Never sell or share prescription opioids. This is illegal. Store opioids in a secure place and out of reach of others (including children, family, friends and visitors). The last page of this document has been signed and retained as a CHART COPY. Signatures Patient Education Materials 8- Post Op General Surgery (01/2020)(CUSTOM) Medication Leaflets minocycline, oxycodone My discharge plan and instructions have been reviewed and explained to me and IJESSICA DAVID D understand my current condition and have read and understand these discharge instructions. I have received a written copy of the plan/instructions. If I have questions, I am aware that I should contact my doctor. Patient/Record Keeper Signature: ___ Date/Time: Relationship to Patient: _ Witness Name/Signature: Date/Time: [facility] 08-01-2024 Note Event Display: SP Cl in Info Procedure: INCISION AND DRAINAGE OF RIGHT THIGH DUE TO MULTIPLE ABSCESSES Preoperative diagnosis: MULTIPLE RIGHT THIGH ABSCESSES Postoperative diagnosis: MULTIPLE RIGHT THIGH ABSCESSES DEMI LONG MD:VERIFY; Authored Date: [id number] [facility] 08-01-2024 Discharge summary Date of Service 08/01/2024 Discharge Diagnosis Incision and drainage right thigh abscesses Hospital Course This patient is a 44-year-old male with history of obesity and also history of renal cell carcinoma for which he has been off and on chemotherapy. In the last 6 to 8 months has had a history of recurrent cutaneous infection and abscesses particularly in a patch of skin in the upper medial right thigh. Patient was treated with antibiotics but had never had formal drainage. Was brought to the hospital for elective incision and drainage of multiple right thigh abscesses. He did return to the OR for exploration of bleeding right thigh with suture ligation and cauterization of bleeding sites. He was then sent to the floor for recovery. Patient was to be discharged to home on 07/31/2024 and prior to discharge to he had some additional bleeding in his right thigh. Area was reevaluated, silver nitrate was applied to several sites of oozing. Pressure dressing was placed and patient was kept overnight for continued evaluation and recheck of laboratory data. Patient was stable for discharge on 08/01/2024, all anticoagulation was held during hospitalization. Patient was able to tolerate a regular diet. He was able to ambulate without difficulties. On the day of discharge, white blood cell count 10.1, Hgb 11.1, PT 14.6, INR 1.3, creatinine 1.62. Patient was instructed to take 1 dose of Lovenox on the day of discharge and begin his Coumadin on 08/02/2024. He was also instructed to begin twice a day Lovenox on 08/02/2024. Patient will follow-up with his PCP regarding dosing of Coumadin as well as discontinuing his Lovenox. He will follow-up with us in the office in 1 week. Patient was given oral antibiotics for discharge, he was treated with IV antibiotics during hospitalization. All discharge instructions were reviewed with patient, he verbalized an understanding and was in agreement with the plan of care. Discharged home in stable condition. Allergies penicillin Swelling Procedures Incision and drainage of inner right thigh abscesses Consults No qualifying data available. Subjective Patient awake and alert, no further bleeding reported from inner right thigh surgical sites. Physical Exam Vitals and Measurements T: 36.4 C (Oral) TMIN: 36.4 C (Oral) TMAX: 36.7 C (Oral) HR: 79 (Apical) RR: 18 BP: 122/61 SpO2: 99% Weight Dosing Weight: 122 kg (07/31/24) Dosing Weight: 122 kg (07/30/24) General: Awake and alert and in no apparent distress. Able to answer questions and speak in full sentences. Sitting upright. HEENT: Mucous membranes moist and pink. Lungs: Chest rise symmetrical. Respirations unlabored. Clear to auscultation bilaterally. Abdomen: Soft and nontender. Nondistended. No guarding or rigidity. Bowel sounds 4 quadrants. Extremities: Freely moving. Skin: Normal color for ethnicity. No pallor or diaphoresis. No jaundice. Right thigh surgical sites examined, no active bleeding. Wound beds are pink, no signs of necrotic tissue. Redressed with wet-to-dry dressings. Psychiatric: Calm and cooperative. Pending Labs and Studies WBC: 10.1 10^3/mcL (08/01/24 04:03:00) RBC: 3.45 10^6/mcL Low (08/01/24 04:03:00) Hgb: 11 G/dL Low (08/01/24 04:03:00) Hct: 32.7 % Low (08/01/24 04:03:00) MCV: 94.7 fL (08/01/24 04:03:00) MCH: 31.7 pg (08/01/24 04:03:00) MCHC: 33.5 G/dL (08/01/24 04:03:00) RDW: 16.5 % High (08/01/24 04:03:00) Platelet: 201 10^3/mcL (08/01/24 04:03:00) MPV: 7.3 fL (08/01/24 04:03:00) Monocyte Distribution Width: 16.89 (07/26/24 20:36:00) Neutrophil %: 77.8 % High (08/01/24 04:03:00) Lymphocyte %: 17 % Low (08/01/24 04:03:00) Monocyte %: 4.8 % (08/01/24 04:03:00) Eosinophil %: 0.2 % (08/01/24 04:03:00) Basophil %: 0.2 % (08/01/24 04:03:00) Neutrophil, Absolute: 7.9 10^3/mcL (08/01/24 04:03:00) Lymphocyte, Absolute: 1.7 10^3/mcL (08/01/24 04:03:00) Monocyte, Absolute: 0.5 10^3/mcL (08/01/24 04:03:00) Eosinophil, Absolute: 0 10^3/mcL (08/01/24 04:03:00) Basophil, Absolute: 0 10^3/mcL (08/01/24 04:03:00) APTT: 31.2 seconds (07/30/24 14:02:00) Protime: 14.6 seconds High (08/01/24 04:03:00) PT International Ratio: 1.3 ratio (08/01/24 04:03:00) Fibrinogen: 488 mg/dL (07/30/24 14:02:00) UA Specimen Type: Void (07/26/24 20:36:00) UA Color: Yellow (07/26/24 20:36:00) UA Appear: Clear (07/26/24 20:36:00) UA Spec Grav: 1.015 (07/26/24 20:36:00) UA Glucose: 500 Abnormal (07/26/24 20:36:00) UA Bili: Small Abnormal (07/26/24 20:36:00) UA Ketones: Trace Abnormal (07/26/24 20:36:00) UA Blood: Negative. (07/26/24 20:36:00) UA pH: 6.0 (07/26/24 20:36:00) UA Protein: Negative.1 (07/26/24 20:36:00) UA Urobilinogen: 0.2 (07/26/24 20:36:00) UA Nitrite: Negative. (07/26/24 20:36:00) UA Leuk Est: Negative. (07/26/24 20:36:00) UA RBC: 0-2 (07/03/24 11:45:00) UA WBC: 3-5 (07/03/24 11:45:00) UA Squam Epithelial: 0-2 (07/03/24 11:45:00) UA Transitional Epithelial: 0-2 (07/03/24 11:45:00) UA Bacteria: 1+ Abnormal (07/03/24 11:45:00) Glucose Level: 128 mg/dL High (08/01/24 04:03:00) Sodium Level: 144 mEq/L (08/01/24 04:03:00) Potassium Level: 4.2 mEq/L (08/01/24 04:03:00) Chloride: 111 mEq/L High (08/01/24 04:03:00) CO2: 21 mEq/L Low (08/01/24 04:03:00) Electrolyte Balance: 12 mEq/L (08/01/24 04:03:00) BUN: 19 mg/dL (08/01/24 04:03:00) Creatinine Lvl (s): 1.62 mg/dL High (08/01/24 04:03:00) Estimated Glomerular Filtration Rate: 53 ml/min/1.73sqm (08/01/24 04:03:00) BUN/Creatinine Ratio: 11.7 ratio (08/01/24 04:03:00) Calcium Lvl: 8.4 mg/dL Low (08/01/24 04:03:00) Total Protein: 7.5 G/dL (07/26/24 20:36:00) Albumin Level: 3.6 G/dL (07/26/24 20:36:00) Globulin: 3.9 G/dL (07/26/24 20:36:00) A/G Ratio: 0.9 ratio Low (07/26/24 20:36:00) Bili Total: 0.7 mg/dL (07/26/24 20:36:00) Alk Phos: 94 U/L (07/26/24 20:36:00) AST/SGOT: 16 U/L (07/26/24 20:36:00) ALT/SGPT: 29 U/L (07/26/24 20:36:00) LDH: 169 U/L (07/03/24 10:11:00) TSH: 1.757 mIU/mL (07/03/24 10:11:00) Free T4: 1.45 ng/dL (07/03/24 10:11:00) Free T3: 3.72 pg/mL (07/03/24 10:11:00) Cortisol Level: 24.9 mcg/dL (07/03/24 10:11:00) Acetaminophen Lvl: 0 mcg/mL Low (07/26/24 20:36:00) Salicylate Level: 3.7 mg/dL (07/26/24 20:36:00) Ethanol Level: <3 (07/26/24 20:36:00) Amphetamine (u): Negative EXL (07/26/24 20:36:00) Barbiturate (u): Negative EXL (07/26/24 20:36:00) Cannabinoid (u): Positive DSX Abnormal (07/26/24 20:36:00) Cocaine (u): Negative EXL (07/26/24 20:36:00) Fentanyl (u): Negative-DSX (07/26/24 20:36:00) Benzodiazepine (u): Negative EXL (07/26/24 20:36:00) Methadone (u): Negative EXL (07/26/24 20:36:00) Opiate (u): Negative EXL (07/26/24 20:36:00) Oxycodone (u): Negative-DSX (07/26/24 20:36:00) PCP (u): Negative EXL (07/26/24 20:36:00) Urine Drugs screened: See Below (07/26/24 20:36:00) SARS-CoV-2 PCR: Cepheid Neg (07/26/24 20:36:00) FLU A PCR: Cepheid Neg (07/26/24 20:36:00) FLU B PCR: Cepheid Neg (07/26/24 20:36:00) RSV PCR: Cepheid Neg (07/26/24 20:36:00) Culture Wound Deep Panel: Auth (Verified) POS Critical (07/22/24 16:10:00) Code Status Code Status - Ordered -- 07/31/24 8:01:00 EDT, Full Code, Constant Order Admission Date 07/30/2024 Discharge Date 08/01/2024 Patient Instructions Please change your dressing to your right thigh once a day. Take 1 dose of Lovenox today, 08/01/2024 Can begin Coumadin tomorrow, 08/02/2024 Can also begin using Lovenox twice a day tomorrow, 08/02/2024 Please follow-up with your PCP regarding Coumadin dosing Medications Unchanged amiodarone (amiodarone 200 mg oral tablet)1 tab(s) by mouth once a day. Refills: 2. betamethasone-clotrimazole topical (betamethasone-clotrimazole 0.05%-1% topical cream)1 application Topical two (2) times a day. for 2 weeks then take 1 week off, may repeat if needed. Refills: 0. empagliflozin (Jardiance 10 mg oral tablet)1 tab(s) by mouth once a day (in the morning) for 30 Days. Refills: 5. famotidine (famotidine 20 mg oral tablet)1 tab(s) Oral BID as needed for heart burn. Refills: 5. furosemide (Lasix 40 mg oral tablet)1 tab(s) by mouth two (2) times a day. Refills: 3. metoprolol (metoprolol tartrate 25 mg oral tablet)1 tab(s) by mouth two (2) times a day. metroNIDAZOLE (metroNIDAZOLE 500 mg oral tablet)1 tab(s) by mouth three (3) times a day for 14 Days. Refills: 0. minocycline (minocycline 100 mg oral capsule)1 cap by mouth every 12 hours for 14 Days. Refills: 0. ondansetron (Zofran 4 mg oral tablet)1 tab(s) by mouth every 6 hours as needed Nausea/Vomiting. oxyCODONE (oxyCODONE 5 mg oral tablet ( IMMEDIATE release ))1 tab(s) by mouth every 8 hours as needed for pain. may fill after 08/05/24. Refills: 0. oxyCODONE (oxyCODONE 5 mg oral tablet ( IMMEDIATE release ))1 tab(s) by mouth every 8 hours as needed for pain. Refills: 0. riociguat (Adempas 2.5 mg oral tablet)1 tab(s) by mouth three (3) times a day. senna (senna (sennosides) 8.6 mg oral tablet)2 tab(s) by mouth two (2) times a day as needed as needed for constipation. Refills: 3. spironolactone (Aldactone 25 mg oral tablet)1 tab(s) by mouth once a day. Take with food. Refills: 8. warfarin (warfarin 2 mg oral tablet)1 tab(s) by mouth once a day. Refills: 2. Follow Up Follow Up with HOME MEDS- patient had home medication brought in. Please send home with patient. Follow Up with AISHWARYA HAMLIN MD, Surgery When:08/08/2024 02:00 PM EDT Where:[address] [facility] [address] [facility] [place] [place] [address]- Additional Information: Please call the office to schedule a hospital follow up appointment. Follow Up Appointments No qualifying data available. Follow Up Labs/Studies Discharge Labs No Follow-up Labs Discharge Studies No Follow-up Studies Discharge Diet Discharge Diet - Ordered -- Type of Diet: Regular, 07/31/24 12:30:00 EDT Discharge Activity Discharge Activity - Ordered -- May Shower, No heavy lifting greater than 10 to 15 pounds.May shower no tub baths, 07/31/24 12:30:00 EDT Condition on Discharge Stable Discharge Disposition Home Information Provided To Patient Time Spent 20 minutes Digitally Signed by DELICIA MORALES on 08/01/2024 11:03 AM [facility] 07-31-2024 Nurse Progress note I have overseen and/or assisted Piper MCDANIEL with the care and medication administration of this patient. I have reviewed and agree with her charting Digitally Signed by Luzma Watson RN on 07/31/2024 03:26 PM [facility] 07-31-2024 Surgery Hospital Progress note Date of Service 07/31/2024 1430 Called to recheck patient's surgical sites as they were oozing. Patient was initially discharged. Site evaluated with small amount of oozing at the most distal site. Silver nitrate applied. Has very small amount of oozing. Tight pressure dressing applied. Patient tolerated procedure well. Will hold discharge and continue to monitor overnight with possible discharge in the a.m. Will hold any anticoagulations today, no Coumadin, no Lovenox Will recheck labs in the a.m. Nursing encouraged to notify if bleeding continues. Digitally Signed by DELICIA MORALES on 07/31/2024 02:53 PM [facility] 07-31-2024 Hospital Discharge instructions Patient Education 07/31/2024 12:46:01 8- Post Op General Surgery (01/2020)(CUSTOM) What to Do After Your General Surgery This sheet will give you general information on what to do when you are home after surgery. However, you should always follow any specific instructions given to you by your surgeon. Pain Medication Please follow the directions on the label of your medication and use your discharge medication list provided by the hospital. Do not take pain medication on an empty stomach. This may cause a stomachache. Constipation is common while taking oral pain medication after surgery. Use a stool softener (Colace) or gentle laxative (milk of magnesia) if needed. As soon as your pain allows, use less of any narcotic pain medication. You may take tuga-mng-iqnnary pain medication if you no longer need your prescribed pain medication. Ausm-bxv-tlunfga pain medications are Tylenol or Advil/Motrin (ibuprofen). Do not take Tylenol if you are still taking [place] or Percocet. They are the same type of medication, and too much acetaminophen can hurt your liver. Activity It is OK to use stairs. Do not lift more than 15 pounds. After surgery, you may feel tired. Rest is important for healing. Slowly increase your activity level by walking and doing normal activities as you feel comfortable. Do not drive while taking narcotic pain medication. They should be out of your system for [address]. Diet Eating smaller meals instead of three large meals is good. This may help with your appetite and nutrition. Good nutrition will help you heal. Follow diet instructions that you were taught after surgery. Infection Prevention Washing your hands is one of the best ways to prevent infection. Always wash your hands before and after touching your incision or bandage. Hands carry germs that can cause infections. Try not to touch your incision. Keep the Incision Clean Wear clean, loose-fitting clothes to prevent clothes from rubbing on the incision. Put clean sheets on your bed when you get home. Do not let other people or animals touch the incision. Showering You may start to shower 48 hours after your surgery. Use a clean washcloth and towel on your incision before you use it on any other area of your body. Adjust the shower spray to gentle and use warm water. Gently wash over your incision using antibacterial soap and water and pat it dry. Do not rub the incision. Do not soak or submerge in the bathtub or hot tub until your surgeon says it is OK. Wound Care If you have a clear, see-through bandage over your incision(s), you may shower with it in place. The bandage is waterproof. oIt is normal to see a small amount of reddish fluid under the clear bandage. You may remove your bandage after 48 hours. If you are in the hospital longer than 48 hours, it is OK to remove your bandage when you get home. If you have thin white tape strips (Steri-Strips) over your incision, keep them dry. Do not remove them unless they begin curling up at the sides and are almost falling off. [place] or sutures are generally removed within seven to 14 days at your follow-up appointment. Drain Care If you have a drain, empty it two to three times per day or if it gets half full. Write down the time it was emptied and amount of fluid on a piece of paper. Bring your paper with times and fluid amounts to your follow-up appointment to show your surgeon. Call Your Doctor If: You have a fever of 101 degrees or higher. It is not uncommon to have a low-grade fever after surgery. You have new redness or fluid around the incision that smells bad or looks like pus. Your skin is very painful, red, warm and/or swollen around the incision. You have a lot of bleeding (push with pressure on the area if this happens). You have bad stomach pain or you start throwing up. If you are unable to reach your surgeon, go to the hospital. Follow Up If a follow-up appointment has not been made, please call your surgeon s office. Most appointments are 10 14 days after surgery. If you have any problems or concerns before then, call the surgeon s office. Follow Up Care 07/23/2024 11:31:42 With:Nicolas jo RN visit has been scheduled for 08/06 and 08/15. Address:Unknown When:1-2 days With:PROSPER MANJARREZ Address: [address] [place] [address]- [phone] Business (1) When:1-2 days With:AISHWARYA HAMLIN MD, Surgery Address: [address] [facility] [address] [place] [address]- When:08/08/2024 14:00:00 Comments:Please call the office to schedule a hospital follow up appointment. With:[facility]- patient had home medication brought in. Please send home with patient. Address: When: Unknown [facility] 07-31-2024 Note Discharge Instructions Thank you for allowing [facility] to assist you with your healthcare needs. The following is important discharge information regarding your hospital visit. Your Care Team PROSPER MANJARREZ DO What to do next Instructions From Your Doctor Please keep dressing intact until seen in the office tomorrow. Do not take any Lovenox today You can begin Coumadin dose tonight Begin Lovenox dose tomorrow, 08/01/2024 Scheduled Follow-Up Appointments Appointment Type When With Where Contact Information StatusGS OV Post Op 08/01/2024 02:40 PM EDT AISHWARYA HAMLIN MD[facility] Confirmed GS OV Post Op 08/05/2024 02:10 PM EDT AISHWARYA HAMLIN MD [facility] Confirmed PALL OV Follow Up 08/28/2024 11:00 AM EDT LIAN FUNG MD [facility] Confirmed Follow Up Appointments Follow Up with AISHWARYA HAMLIN MD, Surgery When:Within 3-5 days Where:[address] [facility] [address] [place] [address]- [phone] Additional Information: Please call the office to schedule a hospital follow up appointment. The Following Activity and Diet Have Been Ordered for You Discharge Activity - Ordered -- May Shower, No heavy lifting greater than 10 to 15 pounds.May shower no tub baths, 07/31/24 12:30:00 EDT Discharge Diet - Ordered -- Type of Diet: Regular, 07/31/24 12:30:00 EDT The Following Equipment Has Been Ordered for You Discharge Home Equipment Discharge Wound Care - Ordered -- Leave incision open to air., 07/31/24 12:30:00 EDT The Following Treatments Have Been Ordered for You Discharge Labs No qualifying data available. Discharge Radiology No qualifying data available. Other Therapies No qualifying data available. Post Acute Orders No qualifying data available. Someone Will Contact You Regarding These Home Health Referrals No home referrals have been ordered for you. No one will call you. Allergies penicillin Swelling Medications Please ask your primary doctor or pharmacist before taking any other medication not listed, including over the counter drugs, herbal medications, vitamins and or supplements as they may interact with your home medications. What How Much When Why Instructions Last Dose Unchanged amiodarone (amiodarone 200 mg oral tablet) 1 tab(s) by mouth Once a day Unchanged betamethasone-clotrimazole topical (betamethasone-clotrimazole 0.05%-1% topical cream) 1 application Topical Two (2) times a day Rash for 2 weeks then take 1 week off, may repeat if needed Unchanged empagliflozin (Jardiance 10 mg oral tablet) 1 tab(s) by mouth Once a day (in the morning) Duration: 30 Days Unchanged enoxaparin (Lovenox 120 mg/ 0.8 mL injectable solution) 0.8 Milliliter Subcutaneous Every 12 hours Duration: 7 Days Unchanged famotidine (famotidine 20 mg oral tablet) See instructions 1 tab(s) Oral BID as needed for heart burn Unchanged furosemide (Lasix 40 mg oral tablet) 1 tab(s) by mouth Two (2) times a day Unchanged metoprolol (metoprolol tartrate 25 mg oral tablet) 1 tab(s) by mouth Two (2) times a day Unchanged metroNIDAZOLE (metroNIDAZOLE 500 mg oral tablet) 1 tab(s) by mouth Three (3) times a day Duration: 14 Days Pickup at [facility]/pharmacy #[id number] Unchanged minocycline (minocycline 100 mg oral capsule) 1 cap by mouth Every 12 hours Duration: 14 Days Pickup at [facility]/pharmacy #[id number] Unchanged ondansetron (Zofran 4 mg oral tablet) 1 tab(s) by mouth Every 6 hours as needed for Nausea/Vomiting Unchanged oxyCODONE (oxyCODONE 5 mg oral tablet ( IMMEDIATE release )) 1 tab(s) by mouth Every 8 hours as needed for for pain Cancer related pain Metastatic renal cell carcinoma. S/P Left cytoreductive nephrectomy 08/14/20. 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 may fill after Unchanged oxyCODONE (oxyCODONE 5 mg oral tablet ( IMMEDIATE release )) 1 tab(s) by mouth Every 8 hours as needed for for pain Cancer related pain Metastatic renal cell carcinoma. S/P Left cytoreductive nephrectomy 08/14/20. 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 Unchanged riociguat (Adempas 2.5 mg oral tablet) 1 tab(s) by mouth Three (3) times a day Unchanged senna (senna (sennosides) 8.6 mg oral tablet) 2 tab(s) by mouth Two (2) times a day as needed for as needed for constipation Unchanged spironolactone (Aldactone 25 mg oral tablet) 1 tab(s) by mouth Once a day Take with food Unchanged warfarin (warfarin 2 mg oral tablet) 1 tab(s) by mouth Once a day Pharmacy Information [facility]/pharmacy #[id number]: [address], [place] [id number] [phone] Please take this list to your next doctor s visit. Bring all medications you take, including over the counter medications, herbals and other supplements with you to your doctor s visit. Patients and families are reminded to discard old lists and to update any records with all medication providers or retail pharmacies. Medication Leaflets minocycline (mye no RYDER michaud) Minocin, Minocin PAC, Solodyn, Ximino What is the most important information I should know about minocycline? Follow all directions on your medicine label and package. Tell each of your healthcare providers about all your medical conditions, allergies, and all medicines you use. What is minocycline? Minocycline is a tetracycline antibiotic that is used to treat many different bacterial infections, such as urinary tract infections, respiratory infections, skin infections, severe acne, gonorrhea, tick fever, chlamydia, and others. Minocycline may also be used for purposes not listed in this medication guide. What should I discuss with my healthcare provider before taking minocycline? You should not take this medicine if you are allergic to minocycline or to similar antibiotics such as demeclocycline, doxycycline, or tetracycline. If you are using minocycline to treat gonorrhea, your doctor may test you to make sure you do not also have syphilis, another sexually transmitted disease. Tell your doctor if you have ever had: liver disease; kidney disease; or asthma or sulfite allergy. You should not use minocycline if you are . It could harm the unborn baby or cause permanent tooth discoloration later in life. Use effective control to prevent while you are using this medicine, whether you are a man or a woman. Tell your doctor right away if a occurs while either the mother or the father is taking minocycline. The use of this medicine by either parent may cause tooth discoloration later in the baby's life. Minocycline can make control pills less effective. Ask your doctor about using a non-hormonal control (condom, diaphragm with spermicide) to prevent . Minocycline passes into breast milk and may affect bone and tooth development in a nursing baby. You should not breast-feed while you are taking minocycline. Do not give this medicine to a child without medical advice. Minocycline can cause permanent yellowing or graying of the teeth in children younger than 8 years old. How should I take minocycline? Follow all directions on your prescription label and read all medication guides or instruction sheets. Use the medicine exactly as directed. Take this medicine with a full glass of water. You may take minocycline with or without food. Do not crush, chew, or break an extended-release capsule or tablet. Swallow it whole. Use this medicine for the full prescribed length of time, even if your symptoms quickly improve. Skipping doses can increase your risk of infection that is resistant to medication. Minocycline will not treat a viral infection such as the flu or a common cold. If you use this medicine long-term, you may need frequent medical tests. You may also need to stop taking minocycline for a short time if you need surgery. This medicine can affect the results of certain medical tests. Tell any doctor who treats you that you are using minocycline. Store at room temperature away from moisture, heat, and light. Throw away any minocycline not used before the expiration date on the medicine label. What happens if I miss a dose? Take the medicine as soon as you can, but skip the missed dose if it is almost time for your next dose. Do not take two doses at one time. What happens if I overdose? Seek emergency medical attention or call the Poison Help line at . Overdose symptoms may include dizziness, nausea, or vomiting. What should I avoid while taking minocycline? For 2 hours before or after you take minocycline: Avoid taking antacids, laxatives, multivitamins, or supplements that contain calcium, magnesium, or iron. These other medicines can make it harder for your body to absorb minocycline. Avoid driving or hazardous activity until you know how this medicine will affect you. Your reactions could be impaired. Antibiotic medicines can cause diarrhea, which may be a sign of a new infection. If you have diarrhea that is watery or bloody, call your doctor. Do not use anti-diarrhea medicine unless your doctor tells you to. Minocycline could make you sunburn more easily. Avoid sunlight or tanning beds. Wear protective clothing and use sunscreen (SPF 30 or higher) when you are outdoors. What are the possible side effects of minocycline? Get emergency medical help if you have signs of an allergic reaction (hives, difficult breathing, fever, swollen glands, joint pain, swelling in your face or throat) or a severe skin reaction (fever, sore throat, burning in your eyes, skin pain, red or purple skin rash that spreads and causes blistering and peeling). Seek medical treatment if you have a serious drug reaction that can affect many parts of your body. Symptoms may include: skin rash, fever, swollen glands, muscle aches, severe weakness, unusual bruising, or yellowing of your skin or eyes. Call your doctor at once if you have: bronchospasm (wheezing, chest tightness, trouble breathing); a seizure; kidney problems--little or no urination, swelling in your feet or ankles, feeling tired or short of breath; low blood cell counts--fever, chills, tiredness, mouth sores, skin sores, easy bruising, unusual bleeding, pale skin, cold hands and feet, feeling light-headed or short of breath; increased pressure inside the skull--severe headaches, ringing in your ears, dizziness, vision problems, pain behind your eyes; or signs of liver or pancreas problems--loss of appetite, upper stomach pain (that may spread to your back), nausea or vomiting, loss of appetite, easy bruising or bleeding, dark urine, jaundice (yellowing of the skin or eyes). Common side effects may include: numbness, tingling, burning pain; hair loss; discoloration of you skin or nails. dizziness, spinning sensation; muscle or joint pain; nausea, diarrhea, loss of appetite; swollen tongue, cough, trouble swallowing; rash, itching; or headache. This is not a complete list of side effects and others may occur. Call your doctor for medical advice about side effects. You may report side effects to FDA at 6-012-EUI-4742. What other drugs will affect minocycline? Tell your doctor about all your other medicines, especially: isotretinoin; a penicillin antibiotic--amoxicillin, ampicillin, dicloxacillin, oxacillin, penicillin, ticarcillin, Amoxil, Moxatag, Augmentin, Principen, and others; a blood thinner--warfarin, Coumadin, Jantoven; or ergot medicine--dihydroergotamine, ergotamine, ergonovine, methylergonovine. This list is not complete. Other drugs may affect minocycline, including prescription and aaph-gms-fcsqjuu medicines, vitamins, and herbal products. Not all possible drug interactions are listed here. Where can I get more information? Your pharmacist can provide more information about minocycline. Remember, keep this and all other medicines out of the reach of children, never share your medicines with others, and use this medication only for the indication prescribed. Every effort has been made to ensure that the information provided by [employer]') is accurate, up-to-date, and complete, but no guarantee is made to that effect. Drug information contained herein may be time sensitive. [employer] information has been compiled for use by healthcare practitioners and consumers in the [place] and therefore [employer] does not warrant that uses outside of the [place] are appropriate, unless specifically indicated otherwise. [employer] drug information does not endorse drugs, diagnose patients or recommend therapy. [employer] drug information is an informational resource designed to assist licensed healthcare practitioners in caring for their patients and/or to serve consumers viewing this service as a supplement to, and not a substitute for, the expertise, skill, knowledge and judgment of healthcare practitioners. The absence of a warning for a given drug or drug combination in no way should be construed to indicate that the drug or drug combination is safe, effective or appropriate for any given patient. [facility] does not assume any responsibility for any aspect of healthcare administered with the aid of information [facility] provides. The information contained herein is not intended to cover all possible uses, directions, precautions, warnings, drug interactions, allergic reactions, or adverse effects. If you have questions about the drugs you are taking, check with your doctor, nurse or pharmacist. Copyright 6968-2428 [facility] [employer]. Version: 17.. Revision Date: 09/15/2022. oxycodone (ox i KOE done) Oxaydo, OxyCONTIN, Roxicodone, RoxyBond, Xtampza ER What is the most important information I should know about oxycodone? MISUSE OF OPIOID MEDICINE CAN CAUSE ADDICTION, OVERDOSE, OR . Fatal side effects may occur if you also drink alcohol or use other drugs that cause drowsiness or slow breathing. Using opioid medicine during may cause life-threatening withdrawal symptoms in the . What is oxycodone? Oxycodone is an opioid pain medication used to treat moderate to severe pain. Oxycodone is usually given after other treatments did not work or were not tolerated. Extended-release oxycodone is for uxofbh-hks-etfvi treatment of severe and chronic pain that requires longer treatment. This medicine is not for use on an as-needed basis. Oxycodone may also be used for purposes not listed in this medication guide. What should I discuss with my healthcare provider before taking oxycodone? You should not use oxycodone if you are allergic to it, or if you have severe asthma, breathing problems or a stomach or bowel obstruction (including paralytic ileus). Tell your doctor if you have ever had: other breathing problems, sleep apnea (breathing that stops during sleep); a head injury, brain tumor, high pressure inside the skull, or seizures, drug or alcohol addiction, or mental illness; if you have used an MAO inhibitor in the past 14 days, such as isocarboxazid, linezolid, methylene blue injection, phenelzine, or tranylcypromine; urination problems, problems with your gallbladder, pancreas, thyroid, or adrenal gland; or liver or kidney disease. Most forms of oxycodone are not approved for use in people under 18 years old. The extended-release tablets should not be given to a child younger than 11 years old. Tell your doctor if you also use stimulant medicine, opioid medicine, herbal products, or medicine for depression, mental illness, Parkinson's disease, migraine headaches, serious infections, or prevention of nausea and vomiting. An interaction with oxycodone could cause a serious condition called serotonin syndrome. May harm an unborn baby. Tell your doctor if you are or plan to become . If you use oxycodone during , your baby could be born with life-threatening withdrawal symptoms, and may need medical treatment for several weeks. Do not breastfeed. Oxycodone in breast milk can cause life-threatening side effects in a nursing baby. Long-term oxycodone may affect fertility in men or women. could be harder to achieve while either parent is using this medicine. How should I take oxycodone? Follow the directions on your prescription label and read all medication guides or instruction sheets. Never use oxycodone in larger amounts, or for longer than prescribed. Tell your doctor if you feel an increased urge to use more of this medicine. Never share opioid medicine with another person, especially someone with a history of drug addiction. MISUSE CAN CAUSE ADDICTION, OVERDOSE, OR . Keep the medicine where others cannot get to it. Selling or giving away this medicine is against the law. Never crush a pill or use the liquid to inhale the mixture or inject it into your vein. This could result in . Your dose needs may change if you switch to a different brand, strength, or form of this medicine. Avoid medication errors by using exactly as directed on the label, or as prescribed by your doctor. Stop taking all other gzomxo-hhu-gkotc opioid pain medicines when you start taking extended-release oxycodone. Swallow the extended-release forms whole to avoid exposure to a potentially fatal overdose. Do not crush, chew, break, open, or dissolve. Take the extended-release capsules with food. Read and carefully follow the instructions for use on how to prepare and take this medicine if you cannot swallow extended release capsules whole or you use a feeding tube. Ask your doctor or pharmacist if you don't understand these instructions. Measure liquid medicine with the supplied measuring device (not a kitchen spoon). You may be given other medications to help prevent or treat certain side effects. You may have withdrawal symptoms if you stop using oxycodone suddenly. Ask your doctor before stopping the medicine. Store at room temperature away from moisture and heat. Keep your medicine in a place where no one can use it improperly. Do not keep leftover medicine. Just one dose can cause in someone using it accidentally or improperly. Ask your pharmacist about a drug take-back program, or flush the unused medicine down the toilet. What happens if I miss a dose? Since oxycodone is used for pain, you are not likely to miss a dose. Skip any missed dose if it is almost time for your next dose. Do not use two doses at one time. What happens if I overdose? Seek emergency medical attention or call the Poison Help line at . An overdose can be fatal, especially in a child or person using opioid medicine without a prescription. Your doctor may recommend you get naloxone (a medicine to reverse an opioid overdose) and keep it with you at all times. A person caring for you can give the naloxone if you stop breathing or don't wake up. Your caregiver must still get emergency medical help and may need to perform CPR (cardiopulmonary resuscitation) on you while waiting for help to arrive. Anyone can buy naloxone from a pharmacy or local health department. Make sure any person caring for you knows where you keep naloxone and how to use it. What should I avoid while taking oxycodone? Do not drink alcohol or any products that contain alcohol. Dangerous side effects or could occur. Avoid driving or hazardous activity until you know how this medicine will affect you. Dizziness or drowsiness can causing falls, accidents, or severe injuries. Also avoid getting up too fast from a sitting or lying position, or you may feel dizzy. What are the possible side effects of oxycodone? Get emergency medical help if you have signs of an allergic reaction: hives, difficult breathing, swelling of your face, lips, tongue, or throat. Opioid medicine can slow or stop your breathing, and may occur, especially if you drink alcohol or use other drugs that cause drowsiness or slow breathing. A person caring for you should give naloxone and/or seek emergency medical attention if you have slow breathing with long pauses, blue colored lips, or if you are hard to wake up. Call your doctor at once if you have: slow heart rate, weak pulse, fainting, slow breathing (breathing may stop); chest pain, fast or pounding heartbeats; a seizure, extreme drowsiness; or decreased adrenal gland hormones--nausea, vomiting, stomach pain, loss of appetite, feeling tired or light-headed, muscle or joint pain, skin discoloration, craving salty foods. Serious breathing problems may be more likely in older adults and in those who are debilitated or have wasting syndrome or chronic breathing disorders. Seek medical attention right away if you have symptoms of serotonin syndrome, such as: agitation, hallucinations, fever, sweating, shivering, fast heart rate, muscle stiffness, twitching, loss of coordination, nausea, vomiting, or diarrhea. Common side effects may include: sleep problems (insomnia), itching; drowsiness, headache, dizziness, tiredness; or constipation, stomach pain, nausea, vomiting. This is not a complete list of side effects and others may occur. Call your doctor for medical advice about side effects. You may report side effects to FDA at 9-675-XLM-5697. What other drugs will affect oxycodone? You may have a fatal oxycodone overdose if you start or stop using certain medicines. Tell your doctor about all your medications. Tell your doctor about all your medications especially if you use medicine to treat HIV, antibiotic, antifungal medication, or seizure medication. Many other drugs can be dangerous when used with opioid medicine. Tell your doctor if you also use: medicine for allergies, asthma, blood pressure, motion sickness, irritable bowel, or overactive bladder; other opioid medicines, a benzodiazepine sedative like Valium, Klonopin, or Xanax; sleep medicine, muscle relaxers, or other drugs that make you drowsy; or drugs that affect serotonin, such as antidepressants, stimulants, or medicine for migraines or Parkinson's disease. This list is not complete and many other drugs may affect oxycodone. This includes prescription and zspd-feg-cicvtam medicines, vitamins, and herbal products. Not all possible drug interactions are listed here. Where can I get more information? Your doctor or pharmacist can provide more information about oxycodone. Remember, keep this and all other medicines out of the reach of children, never share your medicines with others, and use this medication only for the indication prescribed. Every effort has been made to ensure that the information provided by [employer]') is accurate, up-to-date, and complete, but no guarantee is made to that effect. Drug information contained herein may be time sensitive. [employer] information has been compiled for use by healthcare practitioners and consumers in the [place] and therefore [employer] does not warrant that uses outside of the [place] are appropriate, unless specifically indicated otherwise. [employer] drug information does not endorse drugs, diagnose patients or recommend therapy. [employer] drug information is an informational resource designed to assist licensed healthcare practitioners in caring for their patients and/or to serve consumers viewing this service as a supplement to, and not a substitute for, the expertise, skill, knowledge and judgment of healthcare practitioners. The absence of a warning for a given drug or drug combination in no way should be construed to indicate that the drug or drug combination is safe, effective or appropriate for any given patient. [employer] does not assume any responsibility for any aspect of healthcare administered with the aid of information [employer] provides. The information contained herein is not intended to cover all possible uses, directions, precautions, warnings, drug interactions, allergic reactions, or adverse effects. If you have questions about the drugs you are taking, check with your doctor, nurse or pharmacist. Copyright [id number] [employer]. Version: 17.. Revision Date: 03/07/2023. Education Materials What to Do After Your General Surgery This sheet will give you general information on what to do when you are home after surgery. However, you should always follow any specific instructions given to you by your surgeon. Pain Medication Please follow the directions on the label of your medication and use your discharge medication list provided by the hospital. Do not take pain medication on an empty stomach. This may cause a stomachache. Constipation is common while taking oral pain medication after surgery. Use a stool softener (Colace) or gentle laxative (milk of magnesia) if needed. As soon as your pain allows, use less of any narcotic pain medication. You may take ihys-ava-rtvjtmo pain medication if you no longer need your prescribed pain medication. Lirc-wmk-qzlqtut pain medications are Tylenol or Advil/Motrin (ibuprofen). Do not take Tylenol if you are still taking [place] or Percocet. They are the same type of medication, and too much acetaminophen can hurt your liver. Activity It is OK to use stairs. Do not lift more than 15 pounds. After surgery, you may feel tired. Rest is important for healing. Slowly increase your activity level by walking and doing normal activities as you feel comfortable. Do not drive while taking narcotic pain medication. They should be out of your system for [address]. Diet Eating smaller meals instead of three large meals is good. This may help with your appetite and nutrition. Good nutrition will help you heal. Follow diet instructions that you were taught after surgery. Infection Prevention Washing your hands is one of the best ways to prevent infection. Always wash your hands before and after touching your incision or bandage. Hands carry germs that can cause infections. Try not to touch your incision. Keep the Incision Clean Wear clean, loose-fitting clothes to prevent clothes from rubbing on the incision. Put clean sheets on your bed when you get home. Do not let other people or animals touch the incision. Showering You may start to shower 48 hours after your surgery. Use a clean washcloth and towel on your incision before you use it on any other area of your body. Adjust the shower spray to gentle and use warm water. Gently wash over your incision using antibacterial soap and water and pat it dry. Do not rub the incision. Do not soak or submerge in the bathtub or hot tub until your surgeon says it is OK. Wound Care If you have a clear, see-through bandage over your incision(s), you may shower with it in place. The bandage is waterproof. o It is normal to see a small amount of reddish fluid under the clear bandage. You may remove your bandage after 48 hours. If you are in the hospital longer than 48 hours, it is OK to remove your bandage when you get home. If you have thin white tape strips (Steri-Strips) over your incision, keep them dry. Do not remove them unless they begin curling up at the sides and are almost falling off. [place] or sutures are generally removed within seven to 14 days at your follow-up appointment. Drain Care If you have a drain, empty it two to three times per day or if it gets half full. Write down the time it was emptied and amount of fluid on a piece of paper. Bring your paper with times and fluid amounts to your follow-up appointment to show your surgeon. Call Your Doctor If: You have a fever of 101 degrees or higher. It is not uncommon to have a low-grade fever after surgery. You have new redness or fluid around the incision that smells bad or looks like pus. Your skin is very painful, red, warm and/or swollen around the incision. You have a lot of bleeding (push with pressure on the area if this happens). You have bad stomach pain or you start throwing up. If you are unable to reach your surgeon, go to the hospital. Follow Up If a follow-up appointment has not been made, please call your surgeon s office. Most appointments are 10 14 days after surgery. If you have any problems or concerns before then, call the surgeon s office. Additional Information VACCINATE! IT SAVES LIVES! Members of the community who have not yet received the COVID-19 vaccine and would like to receive it can visit one of [facility] vaccine clinics. There are many vaccine clinic locations within the [facility]. For locations and available times, please visit [email or web address] It is important to note that some COVID mobile vaccine clinics are held outdoors and may be canceled in rainy or stormy conditions. To learn more about pediatric vaccinations (ages 5-11), we invite you to visit the [facility] webpage. [email or web address] To learn more about the COVID-19 vaccine, we invite you to visit the CDC website for a list of frequently asked questions.https://www.cdc.gov/deluca virus/2019-ncov/vaccines/faq.html [facility] Patient Portal Access Instructions: Stay connected with your healthcare team and access your personal medical information anytime with the [facility] Patient Portal. Please follow the directions below to create your [facility] account: 1.Access the email account you provided upon registration to the hospital/physician office.2.Look for an invitation email from [facility].3.Open the email and access the invitation link: Accept Invitation to [facility].4.Fill in the required delaney to create your account. To access your account, visit [email or web address]. Click the blue button labeled "Access Patient Portal" and then log in with the username and password that you created in the steps above. You will be able to view your test results, lab results, a summary of your visits, upcoming appointments and more. There is also a convenient messaging option where you can send secure messages to your provider. In addition, you will have the ability to download any documents or summaries to your computer and/or send the information securely to a physician. Remember that your healthcare information is confidential, so carefully consider who you will allow to register on the [facility] [employer] Patient Portal for access to your information. You can also access the [facility] Patient Portal on the [facility] julia. Simply click on "Patient Portal" and then log into your account. If you would like to receive a full copy of your medical records, please contact the [facility] Medical Records Department by calling [phone], Monday through Monday between 8 a.m. and 4:30 p.m. HOW TO SAFELY DISPOSE OF PRESCRIPTION MEDICATIONS Please use one of the following methods to safely dispose of your unused medications. 1.Use a drug disposal kit: the drug disposal pouch allows you to safely discard your old and unused drugs. Ask your nurse to give you one when you are discharged.2.Visit a local take-back location: Many local pharmacies and police departments have programs that collect old and unwanted prescription drugs. Call your local pharmacy or go to http://Huan Xiong.Oddslife/5T0Xz6y to find one close to you.3.Make use of household items: Use cat litter or old coffee grounds to dispose medications if other options are not available. Mix your drugs with these household products, seal them in an airtight container and throw it into the garbage. Call [facility]: [phone] to be sure your drugs can be disposed of in this way. Some medicines may require a different approach.4.Never flush your medications down the toilet. IF YOU HAVE BEEN PRESCRIBED AN OPIOID FOR PAIN If you have been prescribed an opioid (such as hydrocodone, oxycodone or morphine), it is critical to understand the possible side effects and risks of opioid pain medications. Even when taken as directed, opioids can have several side effects including: Tolerance, meaning you might need to take more of a medication for the same pain relief. Nausea, vomiting and/or constipation. Sleepiness, dizziness, dry mouth, confusion, depression or itching. Physical dependence, meaning you have withdrawal symptoms when a medication is stopped, can develop within a few days. KNOW YOUR RESPONSIBILITIES It is important to know exactly how much and how often to take the opioid pain medications you are prescribed. Never take opioids in higher amounts or more often than prescribed. Do not combine opioids with alcohol or other drugs that cause drowsiness, such as benzodiazepines, also known as benzos, including diazepam and alprazolam, muscle relaxants or sleep aids. Never sell or share prescription opioids. This is illegal. Store opioids in a secure place and out of reach of others (including children, family, friends and visitors). The last page of this document has been signed and retained as a CHART COPY. Signatures Patient Education Materials 8- Post Op General Surgery (01/2020)(CUSTOM) Medication Leaflets minocycline, oxycodone My discharge plan and instructions have been reviewed and explained to me and IJESSICA DAVID D understand my current condition and have read and understand these discharge instructions. I have received a written copy of the plan/instructions. If I have questions, I am aware that I should contact my doctor. Patient/Record Keeper Signature: ___ Date/Time: Relationship to Patient: _ Witness Name/Signature: Date/Time: [facility] 07-31-2024 Discharge summary Date of Service 07/31/2024 Discharge Diagnosis Exploration of right thigh wound with suture ligation and cauterization of bleeding sites Hospital Course This patient is a 44-year-old male with history of obesity and also history of renal cell carcinoma for which he has been off and on chemotherapy. In the last 6 to 8 months he had a history of chronic recurrent cutaneous infection and abscesses particularly in a patch of skin in the upper medial right thigh. Patient was treated with antibiotics and but never had any formal drainage. He was brought to the hospital for elective incision and drainage of multiple right thigh abscesses. Patient did have to return to the OR for exploration of bleeding right thigh with suture ligation and cauterization of bleeding sites. He was then sent to the floor for recovery. Patient was monitored closely overnight. He remained hemodynamically stable and afebrile. In the morning, laboratory data was received, WBCs 10.5, Hgb stable 13.9, HCT 41.1, potassium 5.8, this was treated prior to discharge, BUN 15, creatinine 1.53. Prior to discharge to home, potassium was treated with Lokelma as well as a recheck at 12 noon prior to discharge. Patient was instructed to keep his dressing clean and dry until seen in the office in [place] tomorrow. Instructions were given regarding anticoagulation that included no Lovenox injections today, Coumadin dose to begin tonight, and Lovenox to be resumed tomorrow. All discharge instructions were reviewed with patient prior to discharge to home. He verbalized an understanding. Patient was able to tolerate a regular diet without any nausea or vomiting. He was ambulatory in the room. Patient's pain was controlled with oral petting medication. He will be continued on oral antibiotics upon discharge to home. Discharged home in stable condition. Allergies penicillin Swelling Procedures Exploration of right thigh wound with suture ligation and cauterization of bleeding sites Consults No qualifying data available. Objective Vitals and Measurements T: 36.6 C (Oral) TMIN: 8.17 C TMAX: 36.6 C (Oral) HR: 79 RR: 18 BP: 126/71 SpO2: 94% HT: 172.7 cm WT: 122.0 kg BMI: 40.9 Weight Dosing Weight: 122 kg (07/31/24) Dosing Weight: 122 kg (07/30/24) Pending Labs and Studies WBC: 10.5 10^3/mcL (07/31/24 06:37:00) RBC: 4.29 10^6/mcL Low (07/31/24 06:37:00) Hgb: 13.9 G/dL (07/31/24 06:37:00) Hct: 41.1 % (07/31/24 06:37:00) MCV: 95.9 fL (07/31/24 06:37:00) MCH: 32.4 pg (07/31/24 06:37:00) MCHC: 33.8 G/dL (07/31/24 06:37:00) RDW: 16.5 % High (07/31/24 06:37:00) Platelet: 243 10^3/mcL (07/31/24 06:37:00) MPV: 7.3 fL (07/31/24 06:37:00) Monocyte Distribution Width: 16.89 (07/26/24 20:36:00) Neutrophil %: 92.3 % High (07/31/24 06:37:00) Lymphocyte %: 6.4 % Low (07/31/24 06:37:00) Monocyte %: 1.1 % Low (07/31/24 06:37:00) Eosinophil %: 0 % (07/31/24 06:37:00) Basophil %: 0.2 % (07/31/24 06:37:00) Neutrophil, Absolute: 9.7 10^3/mcL High (07/31/24 06:37:00) Lymphocyte, Absolute: 0.7 10^3/mcL Low (07/31/24 06:37:00) Monocyte, Absolute: 0.1 10^3/mcL (07/31/24 06:37:00) Eosinophil, Absolute: 0 10^3/mcL (07/31/24 06:37:00) Basophil, Absolute: 0 10^3/mcL (07/31/24 06:37:00) APTT: 31.2 seconds (07/30/24 14:02:00) Protime: 13.2 seconds (07/30/24 14:02:00) PT International Ratio: 1.2 ratio (07/30/24 14:02:00) Fibrinogen: 488 mg/dL (07/30/24 14:02:00) UA Specimen Type: Void (07/26/24 20:36:00) UA Color: Yellow (07/26/24 20:36:00) UA Appear: Clear (07/26/24 20:36:00) UA Spec Grav: 1.015 (07/26/24 20:36:00) UA Glucose: 500 Abnormal (07/26/24 20:36:00) UA Bili: Small Abnormal (07/26/24 20:36:00) UA Ketones: Trace Abnormal (07/26/24 20:36:00) UA Blood: Negative. (07/26/24 20:36:00) UA pH: 6.0 (07/26/24 20:36:00) UA Protein: Negative.1 (07/26/24 20:36:00) UA Urobilinogen: 0.2 (07/26/24 20:36:00) UA Nitrite: Negative. (07/26/24 20:36:00) UA Leuk Est: Negative. (07/26/24 20:36:00) UA RBC: 0-2 (07/03/24 11:45:00) UA WBC: 3-5 (07/03/24 11:45:00) UA Squam Epithelial: 0-2 (07/03/24 11:45:00) UA Transitional Epithelial: 0-2 (07/03/24 11:45:00) UA Bacteria: 1+ Abnormal (07/03/24 11:45:00) Glucose Level: 114 mg/dL High (07/31/24 06:37:00) Sodium Level: 139 mEq/L (07/31/24 06:37:00) Potassium Level: 5.8 mEq/L High (07/31/24 06:37:00) Chloride: 111 mEq/L High (07/31/24 06:37:00) CO2: 24 mEq/L (07/31/24 06:37:00) Electrolyte Balance: 4 mEq/L (07/31/24 06:37:00) BUN: 15 mg/dL (07/31/24 06:37:00) Creatinine Lvl (s): 1.53 mg/dL High (07/31/24 06:37:00) Estimated Glomerular Filtration Rate: 57 ml/min/1.73sqm (07/31/24 06:37:00) BUN/Creatinine Ratio: 9.8 ratio Low (07/31/24 06:37:00) Calcium Lvl: 8.8 mg/dL (07/31/24 06:37:00) Total Protein: 7.5 G/dL (07/26/24 20:36:00) Albumin Level: 3.6 G/dL (07/26/24 20:36:00) Globulin: 3.9 G/dL (07/26/24 20:36:00) A/G Ratio: 0.9 ratio Low (07/26/24 20:36:00) Bili Total: 0.7 mg/dL (07/26/24 20:36:00) Alk Phos: 94 U/L (07/26/24 20:36:00) AST/SGOT: 16 U/L (07/26/24 20:36:00) ALT/SGPT: 29 U/L (07/26/24 20:36:00) LDH: 169 U/L (07/03/24 10:11:00) TSH: 1.757 mIU/mL (07/03/24 10:11:00) Free T4: 1.45 ng/dL (07/03/24 10:11:00) Free T3: 3.72 pg/mL (07/03/24 10:11:00) Cortisol Level: 24.9 mcg/dL (07/03/24 10:11:00) Acetaminophen Lvl: 0 mcg/mL Low (07/26/24 20:36:00) Salicylate Level: 3.7 mg/dL (07/26/24 20:36:00) Ethanol Level: <3 (07/26/24 20:36:00) Amphetamine (u): Negative EXL (07/26/24 20:36:00) Barbiturate (u): Negative EXL (07/26/24 20:36:00) Cannabinoid (u): Positive DSX Abnormal (07/26/24 20:36:00) Cocaine (u): Negative EXL (07/26/24 20:36:00) Fentanyl (u): Negative-DSX (07/26/24 20:36:00) Benzodiazepine (u): Negative EXL (07/26/24 20:36:00) Methadone (u): Negative EXL (07/26/24 20:36:00) Opiate (u): Negative EXL (07/26/24 20:36:00) Oxycodone (u): Negative-DSX (07/26/24 20:36:00) PCP (u): Negative EXL (07/26/24 20:36:00) Urine Drugs screened: See Below (07/26/24 20:36:00) SARS-CoV-2 PCR: Cepheid Neg (07/26/24 20:36:00) FLU A PCR: Cepheid Neg (07/26/24 20:36:00) FLU B PCR: Cepheid Neg (07/26/24 20:36:00) RSV PCR: Cepheid Neg (07/26/24 20:36:00) Culture Wound Deep Panel: Auth (Verified) POS Critical (07/22/24 16:10:00) Code Status Code Status - Ordered -- 07/31/24 8:01:00 EDT, Full Code, Constant Order Admission Date 07/30/2024 Discharge Date 07/31/2024 Patient Instructions Please keep dressing intact until seen in the office tomorrow. Do not take any Lovenox today You can begin Coumadin dose tonight Begin Lovenox dose tomorrow, 08/01/2024 Medications Unchanged amiodarone (amiodarone 200 mg oral tablet)1 tab(s) by mouth once a day. Refills: 2. betamethasone-clotrimazole topical (betamethasone-clotrimazole 0.05%-1% topical cream)1 application Topical two (2) times a day. for 2 weeks then take 1 week off, may repeat if needed. Refills: 0. empagliflozin (Jardiance 10 mg oral tablet)1 tab(s) by mouth once a day (in the morning) for 30 Days. Refills: 5. enoxaparin (Lovenox 120 mg/0.8 mL injectable solution)0.8 Milliliter Subcutaneous every 12 hours for 7 Days. Refills: 0. famotidine (famotidine 20 mg oral tablet)1 tab(s) Oral BID as needed for heart burn. Refills: 5. furosemide (Lasix 40 mg oral tablet)1 tab(s) by mouth two (2) times a day. Refills: 3. metoprolol (metoprolol tartrate 25 mg oral tablet)1 tab(s) by mouth two (2) times a day. metroNIDAZOLE (metroNIDAZOLE 500 mg oral tablet)1 tab(s) by mouth three (3) times a day for 14 Days. Refills: 0. minocycline (minocycline 100 mg oral capsule)1 cap by mouth every 12 hours for 14 Days. Refills: 0. ondansetron (Zofran 4 mg oral tablet)1 tab(s) by mouth every 6 hours as needed Nausea/Vomiting. oxyCODONE (oxyCODONE 5 mg oral tablet ( IMMEDIATE release ))1 tab(s) by mouth every 8 hours as needed for pain. may fill after 08/05/24. Refills: 0. oxyCODONE (oxyCODONE 5 mg oral tablet ( IMMEDIATE release ))1 tab(s) by mouth every 8 hours as needed for pain. Refills: 0. riociguat (Adempas 2.5 mg oral tablet)1 tab(s) by mouth three (3) times a day. senna (senna (sennosides) 8.6 mg oral tablet)2 tab(s) by mouth two (2) times a day as needed as needed for constipation. Refills: 3. spironolactone (Aldactone 25 mg oral tablet)1 tab(s) by mouth once a day. Take with food. Refills: 8. warfarin (warfarin 2 mg oral tablet)1 tab(s) by mouth once a day. Refills: 2. Follow Up Follow Up with AISHWARYA HAMLIN MD, Surgery When:08/01/2024 02:40 PM EDT Where:[address] [facility] [address] [facility] [place] [address]- Follow Up Appointments No qualifying data available. Follow Up Labs/Studies Discharge Labs No Follow-up Labs Discharge Studies No Follow-up Studies Discharge Diet No qualifying data available. Discharge Activity No qualifying data available. Condition on Discharge Stable Readmission Risk/Palliative Score No qualifying data available. Discharge Disposition Home Information Provided To Patient Time Spent 20 minutes Digitally Signed by DELICIA MORALES on 07/31/2024 09:08 AM [facility] 07-31-2024 Surgery Hospital Progress note Date of Service 07/31/2024 Chief Complaint Postoperative: Postsurgical Subjective Patient seen resting supine in bed, sleeping but awakens. Objective Vitals and Measurements T: 36.6 C (Oral) TMIN: 8.17 C TMAX: 36.6 C (Oral) HR: 72 RR: 18 BP: 95/51 SpO2: 100% HT: 172.7 cm WT: 122.0 kg BMI: 40.9 Intake and Output 7AM Yesterday to 7AM Today Intake and Output (Last 24 hours) Intake Administration Information 900.00 Oral Intake 100.00 Output Urine Voided 750.00 Intra-Op EBL 165.00 Stool Count 0.00 Total Summary Total Intake 1000.00 Total Output 915.00 Fluid Balance 85.00 Physical Exam General: Awake and alert and in no apparent distress. Able to answer questions and speak in full sentences. Supine in bed. HEENT: Mucous membranes moist and pink. Heart: Regular rate and rhythm. S1-S2 are present. Lungs: Chest rise symmetrical. Respirations unlabored. Clear to auscultation bilaterally. Abdomen: Soft and nontender. Nondistended. No guarding or rigidity. Bowel sounds 4 quadrants. Extremities: Freely moving. Skin: Normal color for ethnicity. No pallor or diaphoresis. No jaundice. Right thigh around dressing intact. Psychiatric: Calm and cooperative. Weight Dosing Weight: 122 kg (07/31/24) Dosing Weight: 122 kg (07/30/24) Medications Medications (9) Active Scheduled: (2) acetaminophen PMX 1,000 mg 100 mL, IV Piggyback, q6hr ertapenem 1 gram(s), IV Piggyback, qDay Continuous: (1) Lactated Ringers 1,000 mL 1,000 mL, Intravenous, 75 mL/hr PRN: (6) acetaminophen 325 mg Tablet 650 mg 2 tab(s), Oral, q4h acetaminophen-HYDROcodone 325-5 mg tablet 1 tab(s), Oral, q4h dextrose 50% Solution Disp syringe 50 mL 25 gram(s) 50 mL, IV Push, As Directed morphine 2 mg/mL 1 mL syringe 2 mg 1 mL, IV Push, q3h morphine 4 mg/mL 1mL INJ 4 mg 1 mL, IV Push, q3h ondansetron 2 mg/ 1 mL 2 mL INJ 4 mg 2 mL, IV Push, q4h Lab Results 07/31 06:37 WBC: 10.5 Hgb: 13.9 Hct: 41.1 Platelet: 243 Neutrophil %: 92.3 H Glucose Level: 114 H Sodium Level: 139 Potassium Level: 5.8 H BUN: 15.0 Creatinine Lvl (s): 1.53 H 07/30 20:49 Hgb: 14.7 Hct: 44.2 07/30 14:02 Platelet: 234 Protime: 13.2 PT International Ratio: 1.2 Glucose Level: 96 Sodium Level: 141 Potassium Level: 3.8 BUN: 14.0 Creatinine Lvl (s): 1.34 EKG No qualifying data available. Assessment/Plan Orders: ertapenem, Start: 07/31/24 8:00:00 EDT, Dose = 1 gram(s), IV Piggyback, qDay, Rate: 100 mL/hr, Infuse over: 30 minute(s), 0, 07/31/24 8:00:00 EDT This patient is a 44-year-old male who is postoperative day #1 following exploration of right thigh wound with suture ligation and cauterization of bleeding sites. Vitals, labs, I's/O reviewed. Tmax 36.6, currently hemodynamically stable and on 3 L nasal cannula. WBC 10.5, Hgb 13.9, HCT 41.1, potassium 5.8, BUN 15, creatinine 1.53 Urine output 750 cc / 24 hours Upon examination's morning, the patient is resting supine in bed, he awakens easily. Respirations are easy and nonlabored. Abdomen soft, nondistended, bowel sounds are present. Right thigh wound dressing intact. Pain is currently controlled. Patient is also currently n.p.o. with sips and chips only. IVs infusing. Plan: - Continue IV antibiotics - Strict I's/O's - DVT prophylaxis with SCDs currently -Continue multimodality pain control - Encourage patient to be up out of bed to chair, ambulation as tolerated -aggressive use of incentive spirometry - Continue IV fluids Case discussed with Dr. Hamlin, please see his addendum to follow. Digitally Signed by DELICIA MORALES on 07/31/2024 08:01 AM [facility] 07-31-2024 Surgery Hospital Progress note Date of Service 07/31/2024 Chief Complaint Postoperative: Postsurgical Subjective Patient seen resting supine in bed, sleeping but awakens. Objective Vitals and Measurements T: 36.6 C (Oral) TMIN: 8.17 C TMAX: 36.6 C (Oral) HR: 72 RR: 18 BP: 95/51 SpO2: 100% HT: 172.7 cm WT: 122.0 kg BMI: 40.9 Intake and Output 7AM Yesterday to 7AM Today Intake and Output (Last 24 hours) Intake Administration Information 900.00 Oral Intake 100.00 Output Urine Voided 750.00 Intra-Op EBL 165.00 Stool Count 0.00 Total Summary Total Intake 1000.00 Total Output 915.00 Fluid Balance 85.00 Physical Exam General: Awake and alert and in no apparent distress. Able to answer questions and speak in full sentences. Supine in bed. HEENT: Mucous membranes moist and pink. Heart: Regular rate and rhythm. S1-S2 are present. Lungs: Chest rise symmetrical. Respirations unlabored. Clear to auscultation bilaterally. Abdomen: Soft and nontender. Nondistended. No guarding or rigidity. Bowel sounds 4 quadrants. Extremities: Freely moving. Skin: Normal color for ethnicity. No pallor or diaphoresis. No jaundice. Right thigh around dressing intact. Psychiatric: Calm and cooperative. Weight Dosing Weight: 122 kg (07/31/24) Dosing Weight: 122 kg (07/30/24) Medications Medications (9) Active Scheduled: (2) acetaminophen PMX 1,000 mg 100 mL, IV Piggyback, q6hr ertapenem 1 gram(s), IV Piggyback, qDay Continuous: (1) Lactated Ringers 1,000 mL 1,000 mL, Intravenous, 75 mL/hr PRN: (6) acetaminophen 325 mg Tablet 650 mg 2 tab(s), Oral, q4h acetaminophen-HYDROcodone 325-5 mg tablet 1 tab(s), Oral, q4h dextrose 50% Solution Disp syringe 50 mL 25 gram(s) 50 mL, IV Push, As Directed morphine 2 mg/mL 1 mL syringe 2 mg 1 mL, IV Push, q3h morphine 4 mg/mL 1mL INJ 4 mg 1 mL, IV Push, q3h ondansetron 2 mg/ 1 mL 2 mL INJ 4 mg 2 mL, IV Push, q4h Lab Results 07/31 06:37 WBC: 10.5 Hgb: 13.9 Hct: 41.1 Platelet: 243 Neutrophil %: 92.3 H Glucose Level: 114 H Sodium Level: 139 Potassium Level: 5.8 H BUN: 15.0 Creatinine Lvl (s): 1.53 H 07/30 20:49 Hgb: 14.7 Hct: 44.2 07/30 14:02 Platelet: 234 Protime: 13.2 PT International Ratio: 1.2 Glucose Level: 96 Sodium Level: 141 Potassium Level: 3.8 BUN: 14.0 Creatinine Lvl (s): 1.34 EKG No qualifying data available. Assessment/Plan Orders: ertapenem, Start: 07/31/24 8:00:00 EDT, Dose = 1 gram(s), IV Piggyback, qDay, Rate: 100 mL/hr, Infuse over: 30 minute(s), 0, 07/31/24 8:00:00 EDT This patient is a 44-year-old male who is postoperative day #1 following exploration of right thigh wound with suture ligation and cauterization of bleeding sites. Vitals, labs, I's/O reviewed. Tmax 36.6, currently hemodynamically stable and on 3 L nasal cannula. WBC 10.5, Hgb 13.9, HCT 41.1, potassium 5.8, BUN 15, creatinine 1.53 Urine output 750 cc / 24 hours Upon examination's morning, the patient is resting supine in bed, he awakens easily. Respirations are easy and nonlabored. Abdomen soft, nondistended, bowel sounds are present. Right thigh wound dressing intact. Pain is currently controlled. Patient is also currently n.p.o. with sips and chips only. IVs infusing. Plan: - Continue IV antibiotics - Strict I's/O's - DVT prophylaxis with SCDs currently -Continue multimodality pain control - Encourage patient to be up out of bed to chair, ambulation as tolerated -aggressive use of incentive spirometry - Continue IV fluids Case discussed with Dr. Hamlin, please see his addendum to follow. Digitally Signed by DELICIA MORALES on 07/31/2024 08:01 AM [facility] 07-31-2024 Anesthesiology Consult note Patient: LYNDSAY LOPEZ Age: 44 years Sex: Male : 1980 Associated Diagnoses: None Author: PAM ROME MD Postoperative Information Post Operative Info: Post op day: POD0. Patient location: PACU. Assessment Postanesthesia assessment Vitals: Vital signs from flowsheet : Vital Signs 07/31/2024 1:13 EDT Temperature Oral 36 DegC 07/31/2024 1:11 EDT Peripheral Pulse Rate 66 bpm Systolic Blood Pressure Non-Invasive 121 mmHg Diastolic Blood Pressure Non-Invasive 75 mmHg Blood Pressure Method Automatic Blood Pressure Location Right arm Blood Pressure Cuff Size Medium 07/31/2024 0:51 EDT Systolic Blood Pressure Non-Invasive 113 mmHg Diastolic Blood Pressure Non-Invasive 71 mmHg Mean Arterial Pressure (NBP) 83 mmHg 07/31/2024 0:51 EDT Heart Rate Monitored 60 bpm 07/31/2024 0:51 EDT Respiratory Rate 16 br/min 07/31/2024 0:50 EDT Heart Rate Monitored 60 bpm 07/31/2024 0:30 EDT Heart Rate Monitored 60 bpm 07/31/2024 0:30 EDT Respiratory Rate 20 br/min Systolic Blood Pressure Non-Invasive 122 mmHg Diastolic Blood Pressure Non-Invasive 66 mmHg 07/31/2024 0:28 EDT Heart Rate Monitored 62 bpm 07/31/2024 0:26 EDT Heart Rate Monitored 63 bpm 07/31/2024 0:21 EDT Systolic Blood Pressure Non-Invasive 116 mmHg Diastolic Blood Pressure Non-Invasive 71 mmHg Mean Arterial Pressure (NBP) 84 mmHg 07/31/2024 0:21 EDT Heart Rate Monitored 70 bpm 07/31/2024 0:21 EDT Respiratory Rate 16 br/min 07/31/2024 0:07 EDT Heart Rate Monitored 66 bpm 07/31/2024 0:07 EDT Systolic Blood Pressure Non-Invasive 112 mmHg Diastolic Blood Pressure Non-Invasive 73 mmHg Mean Arterial Pressure (NBP) 87 mmHg 07/31/2024 0:07 EDT Respiratory Rate 16 br/min 07/30/2024 23:50 EDT Respiratory Rate - Anes 0 br/min br/min 07/30/2024 23:47 EDT Heart Rate Monitored 56 bpm LOW 07/30/2024 23:47 EDT Temperature Temporal Artery 36.3 DegC Respiratory Rate 12 br/min LOW Systolic Blood Pressure Non-Invasive 95 mmHg Diastolic Blood Pressure Non-Invasive 55 mmHg LOW 07/30/2024 23:45 EDT Respiratory Rate - Anes 0 br/min br/min 07/30/2024 23:43 EDT Systolic Blood Pressure Non-Invasive 97 mmHg mmHg Diastolic Blood Pressure Non-Invasive 42 mmHg mmHg 07/30/2024 23:40 EDT Heart Rate Monitored 60 bpm bpm Respiratory Rate - Anes 0 br/min br/min Systolic Blood Pressure Non-Invasive 78 mmHg mmHg Diastolic Blood Pressure Non-Invasive 39 mmHg mmHg 07/30/2024 23:37 EDT Systolic Blood Pressure Non-Invasive 90 mmHg mmHg Diastolic Blood Pressure Non-Invasive 42 mmHg mmHg 07/30/2024 23:35 EDT Heart Rate Monitored 57 bpm bpm Respiratory Rate - Anes 13 br/min br/min 07/30/2024 23:34 EDT Systolic Blood Pressure Non-Invasive 82 mmHg mmHg Diastolic Blood Pressure Non-Invasive 41 mmHg mmHg 07/30/2024 23:31 EDT Systolic Blood Pressure Non-Invasive 85 mmHg mmHg Diastolic Blood Pressure Non-Invasive 42 mmHg mmHg 07/30/2024 23:30 EDT Temperature (Route Not Specified) 36.22 DegC DegC Heart Rate Monitored 62 bpm bpm Respiratory Rate - Anes 17 br/min br/min 07/30/2024 23:28 EDT Systolic Blood Pressure Non-Invasive 105 mmHg mmHg Diastolic Blood Pressure Non-Invasive 61 mmHg mmHg 07/30/2024 23:25 EDT Temperature (Route Not Specified) 36.37 DegC DegC Heart Rate Monitored 71 bpm bpm Respiratory Rate - Anes 18 br/min br/min Systolic Blood Pressure Non-Invasive 102 mmHg mmHg Diastolic Blood Pressure Non-Invasive 59 mmHg mmHg 07/30/2024 23:22 EDT Systolic Blood Pressure Non-Invasive 84 mmHg mmHg Diastolic Blood Pressure Non-Invasive 39 mmHg mmHg 07/30/2024 23:20 EDT Temperature (Route Not Specified) 36.37 DegC DegC Heart Rate Monitored 63 bpm bpm Respiratory Rate - Anes 14 br/min br/min 07/30/2024 23:19 EDT Systolic Blood Pressure Non-Invasive 93 mmHg mmHg Diastolic Blood Pressure Non-Invasive 47 mmHg mmHg 07/30/2024 23:16 EDT Systolic Blood Pressure Non-Invasive 87 mmHg mmHg Diastolic Blood Pressure Non-Invasive 48 mmHg mmHg 07/30/2024 23:15 EDT Heart Rate Monitored 66 bpm bpm Respiratory Rate - Anes 33 br/min br/min 07/30/2024 23:13 EDT Systolic Blood Pressure Non-Invasive 75 mmHg mmHg Diastolic Blood Pressure Non-Invasive 48 mmHg mmHg 07/30/2024 23:10 EDT Heart Rate Monitored 79 bpm bpm Respiratory Rate - Anes 0 br/min br/min Systolic Blood Pressure Non-Invasive 95 mmHg mmHg Diastolic Blood Pressure Non-Invasive 57 mmHg mmHg 07/30/2024 22:31 EDT Heart Rate Monitored 67 bpm 07/30/2024 22:31 EDT Systolic Blood Pressure Non-Invasive 92 mmHg Diastolic Blood Pressure Non-Invasive 51 mmHg LOW Mean Arterial Pressure (NBP) 63 mmHg 07/30/2024 22:30 EDT Heart Rate Monitored 67 bpm 07/30/2024 22:02 EDT Heart Rate Monitored 78 bpm 07/30/2024 22:02 EDT Respiratory Rate 16 br/min Systolic Blood Pressure Non-Invasive 116 mmHg Diastolic Blood Pressure Non-Invasive 77 mmHg 07/30/2024 22:01 EDT Systolic Blood Pressure Non-Invasive 116 mmHg Diastolic Blood Pressure Non-Invasive 77 mmHg Mean Arterial Pressure (NBP) 91 mmHg 07/30/2024 21:46 EDT Heart Rate Monitored 70 bpm 07/30/2024 21:46 EDT Systolic Blood Pressure Non-Invasive 112 mmHg Diastolic Blood Pressure Non-Invasive 73 mmHg Mean Arterial Pressure (NBP) 86 mmHg 07/30/2024 21:45 EDT Heart Rate Monitored 74 bpm 07/30/2024 21:33 EDT Heart Rate Monitored 63 bpm 07/30/2024 21:31 EDT Heart Rate Monitored 59 bpm LOW 07/30/2024 21:31 EDT Systolic Blood Pressure Non-Invasive 108 mmHg Diastolic Blood Pressure Non-Invasive 63 mmHg Mean Arterial Pressure (NBP) 77 mmHg 07/30/2024 21:31 EDT Respiratory Rate 16 br/min 07/30/2024 21:30 EDT Heart Rate Monitored 62 bpm 07/30/2024 21:01 EDT Heart Rate Monitored 61 bpm 07/30/2024 21:01 EDT Systolic Blood Pressure Non-Invasive 96 mmHg Diastolic Blood Pressure Non-Invasive 45 mmHg Mean Arterial Pressure (NBP) 61 mmHg 07/30/2024 21:00 EDT Heart Rate Monitored 61 bpm 07/30/2024 20:30 EDT Heart Rate Monitored 60 bpm 07/30/2024 20:30 EDT Respiratory Rate 16 br/min Systolic Blood Pressure Non-Invasive 109 mmHg Diastolic Blood Pressure Non-Invasive 75 mmHg 07/30/2024 20:00 EDT Heart Rate Monitored 61 bpm 07/30/2024 20:00 EDT Temperature Temporal Artery 36.3 DegC Respiratory Rate 20 br/min Systolic Blood Pressure Non-Invasive 116 mmHg Diastolic Blood Pressure Non-Invasive 72 mmHg 07/30/2024 19:34 EDT Heart Rate Monitored 59 bpm LOW Respiratory Rate 20 br/min Systolic Blood Pressure Non-Invasive 122 mmHg Diastolic Blood Pressure Non-Invasive 83 mmHg 07/30/2024 19:15 EDT Heart Rate Monitored 57 bpm LOW Respiratory Rate 16 br/min Systolic Blood Pressure Non-Invasive 113 mmHg Diastolic Blood Pressure Non-Invasive 65 mmHg 07/30/2024 18:45 EDT Heart Rate Monitored 61 bpm Systolic Blood Pressure Non-Invasive 117 mmHg Diastolic Blood Pressure Non-Invasive 71 mmHg 07/30/2024 18:30 EDT Heart Rate Monitored 67 bpm Respiratory Rate 16 br/min Systolic Blood Pressure Non-Invasive 118 mmHg Diastolic Blood Pressure Non-Invasive 73 mmHg 07/30/2024 18:17 EDT Heart Rate Monitored 68 bpm Systolic Blood Pressure Non-Invasive 131 mmHg Diastolic Blood Pressure Non-Invasive 94 mmHg HI 07/30/2024 18:04 EDT Heart Rate Monitored 73 bpm Respiratory Rate 16 br/min Systolic Blood Pressure Non-Invasive 131 mmHg Diastolic Blood Pressure Non-Invasive 93 mmHg HI 07/30/2024 17:44 EDT Temperature Temporal Artery 36.3 DegC Heart Rate Monitored 59 bpm LOW Respiratory Rate 12 br/min LOW Systolic Blood Pressure Non-Invasive 102 mmHg Diastolic Blood Pressure Non-Invasive 56 mmHg LOW 07/30/2024 17:40 EDT Heart Rate Monitored 56 bpm bpm Respiratory Rate - Anes 0 br/min br/min 07/30/2024 17:38 EDT Systolic Blood Pressure Non-Invasive 94 mmHg mmHg Diastolic Blood Pressure Non-Invasive 49 mmHg mmHg 07/30/2024 17:35 EDT Heart Rate Monitored 53 bpm bpm Respiratory Rate - Anes 13 br/min br/min Systolic Blood Pressure Non-Invasive 86 mmHg mmHg Diastolic Blood Pressure Non-Invasive 51 mmHg mmHg 07/30/2024 17:32 EDT Systolic Blood Pressure Non-Invasive 89 mmHg mmHg Diastolic Blood Pressure Non-Invasive 48 mmHg mmHg 07/30/2024 17:30 EDT Temperature (Route Not Specified) 35.99 DegC DegC Heart Rate Monitored 54 bpm bpm Respiratory Rate - Anes 13 br/min br/min 07/30/2024 17:29 EDT Systolic Blood Pressure Non-Invasive 104 mmHg mmHg Diastolic Blood Pressure Non-Invasive 57 mmHg mmHg 07/30/2024 17:26 EDT Systolic Blood Pressure Non-Invasive 100 mmHg mmHg Diastolic Blood Pressure Non-Invasive 56 mmHg mmHg 07/30/2024 17:25 EDT Temperature (Route Not Specified) 36.01 DegC DegC Heart Rate Monitored 55 bpm bpm Respiratory Rate - Anes 14 br/min br/min 07/30/2024 17:23 EDT Systolic Blood Pressure Non-Invasive 99 mmHg mmHg Diastolic Blood Pressure Non-Invasive 59 mmHg mmHg 07/30/2024 17:20 EDT Temperature (Route Not Specified) 35.99 DegC DegC Heart Rate Monitored 56 bpm bpm Respiratory Rate - Anes 14 br/min br/min Systolic Blood Pressure Non-Invasive 97 mmHg mmHg Diastolic Blood Pressure Non-Invasive 57 mmHg mmHg 07/30/2024 17:17 EDT Systolic Blood Pressure Non-Invasive 90 mmHg mmHg Diastolic Blood Pressure Non-Invasive 50 mmHg mmHg 07/30/2024 17:15 EDT Temperature (Route Not Specified) 8.17 DegC DegC Heart Rate Monitored 67 bpm bpm Respiratory Rate - Anes 18 br/min br/min 07/30/2024 17:14 EDT Systolic Blood Pressure Non-Invasive 105 mmHg mmHg Diastolic Blood Pressure Non-Invasive 73 mmHg mmHg 07/30/2024 17:11 EDT Systolic Blood Pressure Non-Invasive 93 mmHg mmHg Diastolic Blood Pressure Non-Invasive 51 mmHg mmHg 07/30/2024 17:10 EDT Temperature (Route Not Specified) 35.85 DegC DegC Heart Rate Monitored 50 bpm bpm Respiratory Rate - Anes 13 br/min br/min 07/30/2024 17:08 EDT Systolic Blood Pressure Non-Invasive 99 mmHg mmHg Diastolic Blood Pressure Non-Invasive 55 mmHg mmHg 07/30/2024 17:05 EDT Temperature (Route Not Specified) 35.2 DegC DegC Heart Rate Monitored 53 bpm bpm Respiratory Rate - Anes 11 br/min br/min Systolic Blood Pressure Non-Invasive 89 mmHg mmHg Diastolic Blood Pressure Non-Invasive 57 mmHg mmHg 07/30/2024 17:02 EDT Systolic Blood Pressure Non-Invasive 80 mmHg mmHg Diastolic Blood Pressure Non-Invasive 46 mmHg mmHg 07/30/2024 17:00 EDT Heart Rate Monitored 66 bpm bpm Respiratory Rate - Anes 0 br/min br/min 07/30/2024 16:59 EDT Systolic Blood Pressure Non-Invasive 114 mmHg mmHg Diastolic Blood Pressure Non-Invasive 66 mmHg mmHg 07/30/2024 16:56 EDT Systolic Blood Pressure Non-Invasive 117 mmHg mmHg Diastolic Blood Pressure Non-Invasive 72 mmHg mmHg 07/30/2024 16:55 EDT Respiratory Rate - Anes 0 br/min br/min 07/30/2024 13:40 EDT Temperature Temporal Artery 36.1 DegC Peripheral Pulse Rate 72 bpm Respiratory Rate 18 br/min Systolic Blood Pressure Non-Invasive 107 mmHg Diastolic Blood Pressure Non-Invasive 64 mmHg . Mental status: at preoperative baseline. Respiratory function: respirations are non-labored, Stable. Respiratory support: none. CV function: Stable. Cardiovascular support: none. Pain: Satisfactory. Nausea status: Satisfactory. Postoperative hydration status: within normal limits. Notes: Patient is sufficiently recovered from anesthesia to participate in the evaluation. No follow-up care needed. No complications post-anesthesia.. Digitally Signed by PAM ROME MD on 07/31/2024 01:53 AM [facility] 07-30-[address] Hamlin called due to bleeding through wound dressing. Attempt to stop bleeding at bedside unsuccessful. Returning to OR for exploration of groin. Discussed with pt and agrees to proceed with general anesthesia and LMA. Digitally Signed by PAM ROME MD on 07/30/2024 11:06 PM [facility] 07-30-2024 Surgery Hospital Progress note Date of Service 07/30/2024 Surgery postop progress note: Several minutes after the patient came to recovery room after surgery I was asked to evaluate the patient's dressing which was saturated with blood and clots. At the bedside I took the dressing down and there appeared to be an active pulsatile bleeder just under the skin on one of the posterior open wounds. This was ligated with a 3-0 Vicryl suture ligature which appeared to stop that bleeder and in addition silver nitrate topical sticks were applied directly to the area. It appeared that good hemostasis of that area had been achieved and the other wounds did not appear to show any active bleeding. A new dressing was applied with saline moist strip gauze followed by multiple 4 x 4's and ABD pads and a 6 inch megan wrap was used to wrap the upper thigh and around the waist to securely hold the new dressing in place. After being in the operating room with another patient for approximately 3 hours I came back to recovery room and reevaluated the patient's wound and again the dressing appeared to be saturated with blood and there appeared to be clotted blood indicating that there was probably further ongoing bleeding. The patient hemodynamically was stable and his hemoglobin was still 14 but given the continued saturation of the dressing with clotted blood I feel that it is appropriate to take the patient back into the operating room placed him back in the operative position take down the dressing with good exposure and carefully evaluate the wounds and make sure there no ongoing active bleeding sources and control any bleeding there is an what ever way necessary before redressing the wounds. Furthermore we will keep the patient in the hospital overnight as an observation as opposed to the original plan of discharging him home. The plan to take him back to the operating room to explore the wound and control any bleeding was explained to the patient and his family and he understands and agrees to proceed. Digitally Signed by AISHWARYA HAMLIN MD on 07/30/2024 11:02 PM [facility] 07-30-2024 Nurse Progress note pressure held numerous times for 20 minutes at a time, wound continues to drip blood Digitally Signed by HENOK Causey on 07/30/2024 09:40 PM [facility] 07-30-2024 Anesthesiology Consult note Patient: LYNDSAY LOPEZ Age: 44 years Sex: Male : 1980 Associated Diagnoses: None Author: PAM ROME MD Postoperative Information Post Operative Info: Post op day: POD0. Patient location: PACU. Assessment Postanesthesia assessment Vitals: Vital signs from flowsheet : Vital Signs 07/30/2024 18:45 EDT Heart Rate Monitored 61 bpm Systolic Blood Pressure Non-Invasive 117 mmHg Diastolic Blood Pressure Non-Invasive 71 mmHg 07/30/2024 18:30 EDT Heart Rate Monitored 67 bpm Respiratory Rate 16 br/min Systolic Blood Pressure Non-Invasive 118 mmHg Diastolic Blood Pressure Non-Invasive 73 mmHg 07/30/2024 18:17 EDT Heart Rate Monitored 68 bpm Systolic Blood Pressure Non-Invasive 131 mmHg Diastolic Blood Pressure Non-Invasive 94 mmHg HI 07/30/2024 18:04 EDT Heart Rate Monitored 73 bpm Respiratory Rate 16 br/min Systolic Blood Pressure Non-Invasive 131 mmHg Diastolic Blood Pressure Non-Invasive 93 mmHg HI 07/30/2024 17:44 EDT Temperature Temporal Artery 36.3 DegC Heart Rate Monitored 59 bpm LOW Respiratory Rate 12 br/min LOW Systolic Blood Pressure Non-Invasive 102 mmHg Diastolic Blood Pressure Non-Invasive 56 mmHg LOW 07/30/2024 17:40 EDT Heart Rate Monitored 56 bpm bpm Respiratory Rate - Anes 0 br/min br/min 07/30/2024 17:38 EDT Systolic Blood Pressure Non-Invasive 94 mmHg mmHg Diastolic Blood Pressure Non-Invasive 49 mmHg mmHg 07/30/2024 17:35 EDT Heart Rate Monitored 53 bpm bpm Respiratory Rate - Anes 13 br/min br/min Systolic Blood Pressure Non-Invasive 86 mmHg mmHg Diastolic Blood Pressure Non-Invasive 51 mmHg mmHg 07/30/2024 17:32 EDT Systolic Blood Pressure Non-Invasive 89 mmHg mmHg Diastolic Blood Pressure Non-Invasive 48 mmHg mmHg 07/30/2024 17:30 EDT Temperature (Route Not Specified) 35.99 DegC DegC Heart Rate Monitored 54 bpm bpm Respiratory Rate - Anes 13 br/min br/min 07/30/2024 17:29 EDT Systolic Blood Pressure Non-Invasive 104 mmHg mmHg Diastolic Blood Pressure Non-Invasive 57 mmHg mmHg 07/30/2024 17:26 EDT Systolic Blood Pressure Non-Invasive 100 mmHg mmHg Diastolic Blood Pressure Non-Invasive 56 mmHg mmHg 07/30/2024 17:25 EDT Temperature (Route Not Specified) 36.01 DegC DegC Heart Rate Monitored 55 bpm bpm Respiratory Rate - Anes 14 br/min br/min 07/30/2024 17:23 EDT Systolic Blood Pressure Non-Invasive 99 mmHg mmHg Diastolic Blood Pressure Non-Invasive 59 mmHg mmHg 07/30/2024 17:20 EDT Temperature (Route Not Specified) 35.99 DegC DegC Heart Rate Monitored 56 bpm bpm Respiratory Rate - Anes 14 br/min br/min Systolic Blood Pressure Non-Invasive 97 mmHg mmHg Diastolic Blood Pressure Non-Invasive 57 mmHg mmHg 07/30/2024 17:17 EDT Systolic Blood Pressure Non-Invasive 90 mmHg mmHg Diastolic Blood Pressure Non-Invasive 50 mmHg mmHg 07/30/2024 17:15 EDT Temperature (Route Not Specified) 8.17 DegC DegC Heart Rate Monitored 67 bpm bpm Respiratory Rate - Anes 18 br/min br/min 07/30/2024 17:14 EDT Systolic Blood Pressure Non-Invasive 105 mmHg mmHg Diastolic Blood Pressure Non-Invasive 73 mmHg mmHg 07/30/2024 17:11 EDT Systolic Blood Pressure Non-Invasive 93 mmHg mmHg Diastolic Blood Pressure Non-Invasive 51 mmHg mmHg 07/30/2024 17:10 EDT Temperature (Route Not Specified) 35.85 DegC DegC Heart Rate Monitored 50 bpm bpm Respiratory Rate - Anes 13 br/min br/min 07/30/2024 17:08 EDT Systolic Blood Pressure Non-Invasive 99 mmHg mmHg Diastolic Blood Pressure Non-Invasive 55 mmHg mmHg 07/30/2024 17:05 EDT Temperature (Route Not Specified) 35.2 DegC DegC Heart Rate Monitored 53 bpm bpm Respiratory Rate - Anes 11 br/min br/min Systolic Blood Pressure Non-Invasive 89 mmHg mmHg Diastolic Blood Pressure Non-Invasive 57 mmHg mmHg 07/30/2024 17:02 EDT Systolic Blood Pressure Non-Invasive 80 mmHg mmHg Diastolic Blood Pressure Non-Invasive 46 mmHg mmHg 07/30/2024 17:00 EDT Heart Rate Monitored 66 bpm bpm Respiratory Rate - Anes 0 br/min br/min 07/30/2024 16:59 EDT Systolic Blood Pressure Non-Invasive 114 mmHg mmHg Diastolic Blood Pressure Non-Invasive 66 mmHg mmHg 07/30/2024 16:56 EDT Systolic Blood Pressure Non-Invasive 117 mmHg mmHg Diastolic Blood Pressure Non-Invasive 72 mmHg mmHg 07/30/2024 16:55 EDT Respiratory Rate - Anes 0 br/min br/min 07/30/2024 13:40 EDT Temperature Temporal Artery 36.1 DegC Peripheral Pulse Rate 72 bpm Respiratory Rate 18 br/min Systolic Blood Pressure Non-Invasive 107 mmHg Diastolic Blood Pressure Non-Invasive 64 mmHg . Mental status: at preoperative baseline. Respiratory function: respirations are non-labored, Stable. Respiratory support: none. CV function: Stable. Cardiovascular support: none. Pain: Satisfactory. Nausea status: Satisfactory. Postoperative hydration status: within normal limits. Notes: Patient is sufficiently recovered from anesthesia to participate in the evaluation. No follow-up care needed. No complications post-anesthesia.. Digitally Signed by PAM ROME MD on 07/30/2024 07:17 PM [facility] 07-30-2024 History and physical note Date of Service 07/30/2024 History and Physical Update I have examined the patient; reviewed the History and Physical and there are no changes to the History and Physical unless noted below. Digitally Signed by AISHWARYA HAMLIN MD on 07/30/2024 04:32 PM [facility] 07-30-2024 Anesthesiology Consult note Patient: LYNDSAY LOPEZ Age: 44 years Sex: Male : 1980 Associated Diagnoses: None Author: PAM ROME MD Preoperative Information No solid food for >8 hours; no clear liquids for >2 hours Anesthesia history Patient's history: negative. History of Present Illness 44yoM with PMH abscess, of right leg, alcohol abuse (2023), anxiety, arthritis, bleeding hemorrhoid, BMI 42.41, COPD, pulmonary embolism (2022), renal mass, metastic renal cell carcinoma, acid reflux (controlled with Pepcid) multiple nodules of the lung, paroxysmal atrial fibrillation, pulmonary hypertension, renal cell carcinoma, secondary malignant neoplasm of bone, T11 vertebral fracture, UTI presenting for I&D thigh abscess. Denies CP, SOB, fever, recent cough, cold or congestion; >4 METS, no GERD sx, N or V today. Health Status Allergies: Allergic Reactions (Selected) Severity Not Documented Penicillin- Swelling., Allergies (1) ActiveSeverityReaction penicillinSwelling Current medications: (Selected) Inpatient Medications Ordered Dextrose 50% IV Push: 25 gram(s), 50 mL, IV Push, AsDirected, PRN: Low blood sugar LR 1,000 mL: 20 mL/hr, Intravenous NS 1,000 mL: 20 mL/hr, Intravenous Future EPINEPHrine 0.1 mg/mL injectable solution: 0.3 mg, 3 mL, Intramuscular INF, Once, Day 1, PRN: Other (see order comments) NS 1000 mL Bolus: 1,000 mL, IV Bolus, Once, Day 1, PRN: Other (see order comments) Zero Time Placeholder: None, Day of Tx, Day 1 albuterol 2.5 mg/3 mL (0.083%) inhalation solution: 2.5 mg, 3 mL, Inhalation, Once, Day 1, PRN: Other (see order comments) diphenhydrAMINE: 50 mg, 1 mL, IV Push (INF), Once, Day 1, PRN: Other (see order comments) famotidine: 20 mg, 2 mL, IV Push (INF), Once, Day 1, PRN: Other (see order comments) hydrocortisone 100 mg preservative-free injection: 100 mg, IV Push (INF), Once, Day 1, PRN: Other (see order comments) nivolumab (DoT): 480 mg, 48 mL, 296 mL/hr, IV Piggyback, Day of Tx, Day 1 Prescriptions Prescribed Aldactone 25 mg oral tablet: 25 mg, 1 tab(s), Oral, qDay, Take with food, 30 tab(s), 8 Refill(s) Jardiance 10 mg oral tablet: 10 mg, 1 tab(s), Oral, qAM, for 30 day(s), 30 tab(s), 5 Refill(s) Lasix 40 mg oral tablet: 40 mg, 1 tab(s), Oral, BID, 180 tab(s), 3 Refill(s) Lovenox 120 mg/0.8 mL injectable solution: 120 mg, 0.8 mL, Subcutaneous, q12h, for 7 day(s), 11.2 mL, 0 Refill(s) amiodarone 200 mg oral tablet: 200 mg, 1 tab(s), Oral, qDay, 30 tab(s), 2 Refill(s) betamethasone-clotrimazole 0.05%-1% topical cream: 1 julia, Topical, BID, for 2 weeks then take 1 week off, may repeat if needed, 45 gram(s), 0 Refill(s) famotidine 20 mg oral tablet: See Instructions, 1 tab(s) Oral BID as needed for heart burn, 60 tab(s), 5 Refill(s) oxyCODONE 5 mg oral tablet ( IMMEDIATE release ): 5 mg, 1 tab(s), Oral, q8h, PRN: for pain, 90 tab(s), 0 Refill(s) oxyCODONE 5 mg oral tablet ( IMMEDIATE release ): 5 mg, 1 tab(s), Oral, q8h, may fill after 08/05/24, PRN: for pain, 90 tab(s), 0 Refill(s) senna (sennosides) 8.6 mg oral tablet: 17.2 mg, 2 tab(s), Oral, BID, PRN: as needed for constipation, 120 tab(s), 3 Refill(s) warfarin 2 mg oral tablet: 2 mg, 1 tab(s), Oral, qDay, 30 tab(s), 2 Refill(s) Documented Medications Documented Adempas 2.5 mg oral tablet: 2.5 mg, 1 tab(s), Oral, TID Zofran 4 mg oral tablet: 4 mg, 1 tab(s), Oral, q6h, PRN: Nausea/Vomiting, 0 Refill(s) metoprolol tartrate 25 mg oral tablet: 25 mg, 1 tab(s), Oral, BID, 0 Refill(s), Medications (3) Active Scheduled: (0) Continuous: (2) Lactated Ringers 1,000 mL 1,000 mL, Intravenous, 20 mL/hr NS (0.9% nacl) 1,000 mL 1,000 mL, Intravenous, 20 mL/hr PRN: (1) dextrose 50% Solution Disp syringe 50 mL 25 gram(s) 50 mL, IV Push, AsDirected Problem list: Medical Abscess of right leg / SNOMED CT 436454837 / Confirmed Cigarette smoker Active / SNOMED CT 377783995 / Confirmed T11 vertebral fracture / SNOMED CT 8095170861 / Confirmed History of pulmonary embolism / SNOMED CT 434645649 / Confirmed Marijuana user Active / SNOMED CT 7170608857 / Confirmed Metastatic renal cell carcinoma. S/P Left cytoreductive nephrectomy 08/14/20. 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 / SNOMED CT 9005082273 / Confirmed Morbid obesity due to excess calories / SNOMED CT 443432050 / Confirmed Lung nodule, multiple Active / SNOMED CT 6005075042 / Confirmed Cancer related pain / SNOMED CT 9523410142 / Confirmed Paroxysmal atrial fibrillation / SNOMED CT 453597727 / Confirmed Palliative care encounter / SNOMED CT 395796776 / Confirmed Secondary malignant neoplasm of bone (disorder) Active / SNOMED CT 356154263 / Confirmed Therapeutic opioid-induced constipation (OIC) / SNOMED CT 7760644950 / Confirmed Tobacco abuse / SNOMED CT 547523438 / Confirmed, Active Problems (30) Abscess of right leg Anxiety Arthritis Back pain Cancer related pain Constipation COPD - Chronic obstructive pulmonary disease PIERSON (dyspnea on exertion) Encounter for immunotherapy Glasses History of chemotherapy History of pulmonary embolism History of radiation therapy Metastatic renal cell carcinoma. S/P Left cytoreductive nephrectomy 08/14/20. Final path - ccRCC with Morbid obesity due to excess calories Noncompliance with CPAP treatment Pain management Palliative care encounter Paroxysmal atrial fibrillation Port-A-Cath in place Pulmonary hypertension Severe pain Sleep apnea T11 vertebral fracture Therapeutic opioid-induced constipation (OIC) Tobacco abuse Cigarette smoker Active Lung nodule, multiple Active Marijuana user Active Secondary malignant neoplasm of bone (disorder) Active Histories Past Medical History: Resolved Viral gastroenteritis (913918522): Resolved. Alcohol abuse (71719814): Resolved. Comments: 01/31/2024 EST 21:08 HAN - PROSPER MANJARREZ DO No alcohol use since August 2023 Left renal mass. 9.6-cm. With perinephric fat invasion. With lytic bony lesion and pulmonary nodules concerning for mets. BS, 07/2020 - neg. CT brain, 07/2020 - neg. S/P Radical nephrectomy 08/14/20. ([id number]): Resolved. Renal cell carcinoma (disorder) Active (9264423474): Resolved. Family History: Kidney stone Mother Sister Rheumatoid arthritis Mother Heart attack Father Gastrointestinal ulcer Father Crohn's disease Sister HTN - Hypertension Mother Father Diabetes Father Procedure history: Drainage ([id number]) on 01/25/2024 at 43 Years. Comments: 02/01/2024 12:05 Piper Ceballos back of right thigh drainage Atriotomy ([id number]) on 08/18/2022 at 42 Years. Comments: 07/26/2024 7:31 HENOK Giraldo with removal of of right atrial mass Pulmonary embolectomy ([id number]) on 08/18/2022 at 42 Years. Cardioversion ([id number]) in the month of 07/2022 at 42 Years. Implantable venous access port ([id number]) in the month of 02/2022 at 41 Years. Tooth extraction ([id number]) on 08/28/2021 at 41 Years. Nephrectomy, including partial ureterectomy, any open approach including rib resection; radical, with regional lymphadenectomy and/or vena caval thrombectomy (62006) on 08/14/2020 at 40 Years. Tonsillectomy (497502276) in 1988 at 7 Years. Chemotherapy (321052382). Comments: 11/17/2020 9:50 HENOK Bucio 3 weeks ago Boost radiation therapy ([id number]). Comments: 11/17/2020 9:51 HENOK Bucio 11-17-20 Social History: Social & Psychosocial Habits Alcohol 07/30/2024Risk Assessment: Medium Risk 07/30/2024 Use: Past Type: Beer Frequency: 1-2 times per month Previous treatment: Outpatient Has alcohol use interfered with work or home life: No Do you ever drink more than intended: Yes Has anyone been hurt or at risk by your drinking: Yes Ready to change: Yes Comment: Quit JULY 16, 2020 - 08/14/2020 10:33 - HENOK Purdy; I will drink still once in awhile - 04/14/2023 11:00 - Mely Beth CMA Employment/School 07/24/2024 Status: Employed Substance Abuse 07/30/2024Risk Assessment: Denies Substance Abuse 07/30/2024 Use: Current Type: Marijuana Frequency: 1-2 times per week IV drug use: No Ready to change: No Concerns about substance abuse in household: No Tobacco 07/30/2024 Tobacco Use: 10 or more cigarettes (, Quit July; started again the end of August or beginning of September Type: Cigarettes Tobacco use per day: 15 Started at age: 13 Years Ready to change: Yes Smoking Cessation Information Instructed to not smoke d Comment: Daily Tobacco/Smoke Exposure - 10/25/2018 09:49 - Mely Beth CMA Home/Environment 07/30/2024 Living situation: Home with assistance Safe place to go: Yes Domestic Concerns None 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 - 12/21/2023 09:21 - Edel Pena CMA Physical Examination Vital Signs (last 24 hrs) Last Charted Temp Uatykcqd47.1 DegC (JUL 30 13:40) KUQ065 mmHg (JUL 30 13:40) DBP64 mmHg (JUL 30 13:40) Measurements from flowsheet : Measurements 07/30/2024 13:40 EDT Height 172.7 cm Height in inches 68 inch(es) Admission Weight 122.0 kg Weight Lbs 268.4 lb Weight Method Actual [place] Body Weight 68.38 kg Type of Scale Used Bed scale Admission Body Mass Index 40.9 m2 General: Alert and oriented, No acute distress. Airway: Normal mouth, Normal neck range of motion. Mallampati classification: II (soft palate, fauces, uvula visible). Dentition Evaluation: Missing teeth. Neck: Supple. Respiratory: Lungs are clear to auscultation, Respirations are non-labored. Cardiovascular: Normal rate, Regular rhythm. Heart Sounds: Normal. Neurologic: Alert, Oriented. Review / Management Results review: Labs (Last four charted values) Plt 234(JUL 30) Na 141(JUL 30) K 3.8(JUL 30) CO2 22(JUL 30) Cl 110(JUL 30) Cr 1.34(JUL 30) BUN 14.0(JUL 30) Glucose 96(JUL 30) Ca 9.1(JUL 30) PT 13.2(JUL 30) INR 1.2(JUL 30) PTT 31.2(JUL 30) . Documentation reviewed: Current records. Assessment and Plan [place] [employer] (ASA) physical status classification: Class IV. Anesthetic Preoperative Plan Premedication: intravenous. Anesthetic technique: General. Induction: intravenously. Maintenance airway: Laryngeal mask airway. Postoperative pain management: Per surgeon. Risks discussed: nausea, vomiting, headache, sore throat, dental injury, hypotension, allergic reaction, serious complications. Informed consent: signed by patient. Digitally Signed by PAM ROME MD on 07/30/2024 04:50 PM [facility] 07-26-2024 Hospital Discharge instructions Follow Up Care 07/26/2024 19:39:05 With:PROSPER MANJARREZ DO Address: [address] [place] [address]- [phone] When:2-4 days [facility] 07-26-2024 Note . MICRO - Microbiology PROCEDURE: Culture Wound Deep Aerobe/Anaerobe w Gram Stain [*1] SOURCE: Drainage BODY SITE: Leg R COLLECTED DATE/TIME: 07/22/2024 16:10 EDT RECEIVED DATE/TIME: 07/22/2024 21:24 EDT START DATE/TIME: 07/22/2024 21:24 EDT FREE TEXT SOURCE: FINAL REPORTS Final Report [] Verified Date/Time/Personnel: 07/26/2024 13:47 EDT Few Group B Beta Hemolytic Strep (Strep agalactiae) Sensitivity testing is not recommended for one of the following reasons: 1. Established susceptibility patterns are available or 2. Interpretative criteria are not available. 2 colonies Escherichia coli ESBL Extended-Spectrum B-Lactamase isolate may be clinically resistant to therapy with Penicillins, Cephalosporinsor Aztreonam despite apparent "in vitro" susceptibility to some of these agents. Use of Imipenem is currently restricted to Infectious Disease /Intensivists. Please consult Physicians accordingly. Light Bacteroides fragilis Beta-Lactamase: Positive Susceptibility testing on anaerobic bacteria not done. Many technical and interpretive difficulties are associated with this testing and in many cases antimicrobial therapy is used as an adjunct to primary surgical management. Please contact Microbiology with any questions ([phone]). Few normal skin monie present Sensitivity testing not indicated. PRELIMINARY REPORTS Preliminary Report [] Verified Date/Time/Personnel: 07/25/2024 14:21 EDT Few Group B Beta Hemolytic Strep (Strep agalactiae) Sensitivity testing is not recommended for one of the following reasons: 1. Established susceptibility patterns are available or 2. Interpretative criteria are not available. 2 colonies Escherichia coli ESBL Extended-Spectrum B-Lactamase isolate may be clinically resistant to therapy with Penicillins, Cephalosporinsor Aztreonam despite apparent "in vitro" susceptibility to some of these agents. Use of Imipenem is currently restricted to Infectious Disease /Intensivists. Please consult Physicians accordingly. Light Bacteroides fragilis Beta-Lactamase: Positive Susceptibility testing on anaerobic bacteria not done. Many technical and interpretive difficulties are associated with this testing and in many cases antimicrobial therapy is used as an adjunct to primary surgical management. Please contact Microbiology with any questions ([phone]). Few normal skin monie present Sensitivity testing not indicated. MICRO - Microbiology PRELIMINARY REPORTS Preliminary Report [] Verified Date/Time/Personnel: 07/25/2024 07:55 EDT Few Group B Beta Hemolytic Strep (Strep agalactiae) Sensitivity testing is not recommended for one of the following reasons: 1. Established susceptibility patterns are available or 2. Interpretative criteria are not available. 2 colonies Escherichia coli ESBL Extended-Spectrum B-Lactamase isolate may be clinically resistant to therapy with Penicillins, Cephalosporinsor Aztreonam despite apparent "in vitro" susceptibility to some of these agents. Use of Imipenem is currently restricted to Infectious Disease /Intensivists. Please consult Physicians accordingly. Few normal skin monie present Sensitivity testing not indicated. No anaerobes isolated to date. Preliminary Report [] Verified Date/Time/Personnel: 07/24/2024 11:55 EDT Few Group B Beta Hemolytic Strep (Strep agalactiae) Sensitivity testing is not recommended for one of the following reasons: 1. Established susceptibility patterns are available or 2. Interpretative criteria are not available. 2 colonies Escherichia coli KEN to follow Few normal skin monie present Sensitivity testing not indicated. No anaerobes isolated to date. Preliminary Report [] Verified Date/Time/Personnel: 07/23/2024 11:02 EDT Culture results pending. STAINS GS [] Verified Date/Time/Personnel: 07/22/2024 22:12 EDT No organisms seen. SUSCEPTIBILITY RESULTS Escherichia coli ESBL Antibiotic KEN Dilut KEN Inter Amikacin <=16 Susceptible Amoxicillin/ 16/8 Resistant Clavulanate Ampicillin >16 Resistant Ampicillin/ 16/8 Resistant Sulbactam Aztreonam >16 Resistant Cefazolin >16 Resistant Cefepime 16 Resistant Ceftolozane/ <=2 Susceptible Tazobactam Ceftriaxone >32 Suspected ESBL Talent Sourcing Specialist Cefuroxime >16 Resistant Ciprofloxacin >2 Resistant Ertapenem <=0.5 Susceptible Gentamicin <=2 Susceptible ID Panel Not Not Applicable Applicable Imipenem <=1 Susceptible MICRO - Microbiology SUSCEPTIBILITY RESULTS Escherichia coli ESBL Antibiotic KEN Dilut KEN Inter Levofloxacin >4 Resistant Meropenem <=1 Susceptible Minocycline <=4 Susceptible Moxifloxacin >4 Resistant Tetracycline <=4 Susceptible Trimethoprim/ >2/38 Resistant Sulfa Bacteroides fragilis Antibiotic KEN Dilut KEN Inter ID Panel Not Not Applicable Applicable Performing Locations *1: Th (more content not included)... [facility] Summary of episode note LYNDSAY LOPEZ :1980 Visit Date:07/03/2024 Your Visit Summary Your Diagnosis Encounter for immunotherapy Metastatic renal cell carcinoma. S/P Left cytoreductive nephrectomy 08/14/20. 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 Metastatic renal cell carcinoma. S/P Left cytoreductive nephrectomy 08/14/20. 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 Secondary malignant neoplasm of bone (disorder) Active Tests Performed .Auto Differential .Estimated Glomerular Filtration Rate .Neutro Absolute CBC CMP Cortisol Level Free T3 Free T4 LDH TSH Urinalysis w/ C&S if Indicated -- Results Pending -- You will be contacted within 72 hours with your results. Your Care Team Attending Physician - BHAVIK TRIANA MD Primary Care Physician - PROSPER MANJARREZ DO Vitals Temperature (Oral) 97.5 F (36.4 C) Heart Rate 62 Respiratory Rate 18 Blood Pressure 110/61 Height 67.80 in (172.2 cm) Weight 285.99 lb (129.7 kg) BMI 43.74 What to do next Instructions From Your Doctor You have received the following therapy today: Nivolumab Immunotherapy Call your physician if any of the following problems occur: Nausea/Vomiting Mouth Sores Diarrhea Fever Prolonged bleeding or easy bruising Pain or discomfort at the injection site Scheduled Follow-Up Appointments Appointment Type When With Where Contact Information StatusEcho - Echocardiogram Adult 07/23/2024 11:00 AM [facility] [phone] Confirmed HEM ONC OV Follow Up w/ Active Treatme 07/31/2024 10:15 AM BHAVIK ZAPATA MD Hematology and Oncology Confirmed PALL OV Follow Up 08/28/2024 11:00 AM LIAN COVINGTON MD Palliative Care Confirmed Medications What How Much When Why Instructions Unchanged amiodarone (amiodarone 200 mg oral tablet) 1 tab(s) by mouth Once a day Unchanged betamethasone-clotrimazole topical (betamethasone-clotrimazole 0.05%-1% topical cream) 1 application Topical Two (2) times a day Rash for 2 weeks then take 1 week off, may repeat if needed Unchanged empagliflozin (Jardiance 10 mg oral tablet) 1 tab(s) by mouth Once a day (in the morning) Duration: 30 Days Unchanged famotidine (famotidine 20 mg oral tablet) See instructions 1 tab(s) Oral BID as needed for heart burn Unchanged furosemide (Lasix 40 mg oral tablet) 1 tab(s) by mouth Two (2) times a day Unchanged metoprolol (metoprolol tartrate 25 mg oral tablet) 1 tab(s) by mouth Two (2) times a day Unchanged ondansetron (Zofran 4 mg oral tablet) 1 tab(s) by mouth Every 6 hours as needed for Nausea/Vomiting Unchanged oxyCODONE (oxyCODONE 5 mg oral tablet ( IMMEDIATE release )) 1 tab(s) by mouth Every 8 hours as needed for for pain Cancer related pain Metastatic renal cell carcinoma. S/P Left cytoreductive nephrectomy 08/14/20. 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 Unchanged riociguat (Adempas 1 mg oral tablet) 1 tab(s) by mouth Three (3) times a day Pulmonary hypertension Unchanged senna (senna (sennosides) 8.6 mg oral tablet) 2 tab(s) by mouth Two (2) times a day as needed for as needed for constipation Unchanged spironolactone (Aldactone 25 mg oral tablet) 1 tab(s) by mouth Once a day Take with food Unchanged warfarin (warfarin 2 mg oral tablet) 1 tab(s) by mouth Once a day Test Results .Auto Differential (07/03/2024) Neutrophil % - 67.5 % Lymphocyte % - 15.4 % Monocyte % - 8.7 % Eosinophil % - 7.4 % Basophil % - 1.0 % Lymphocyte, Absolute - 1.3 10^3/mcL Monocyte, Absolute - 0.7 10^3/mcL Eosinophil, Absolute - 0.6 10^3/mcL Basophil, Absolute - 0.1 10^3/mcL .Estimated Glomerular Filtration Rate (07/03/2024) Estimated Glomerular Filtration Rate - 49 ml/min/1.73sqm .Neutro Absolute (07/03/2024) Neutrophil, Absolute - 5.8 10^3/mcL CBC (07/03/2024) WBC - 8.6 10^3/mcL RBC - 4.74 10^6/mcL Hgb - 15.6 G/dL Hct - 45.6 % MCV - 96.2 fL MCH - 32.8 pg MCHC - 34.1 G/dL RDW - 16.9 % Platelet - 234 10^3/mcL MPV - 7.8 fL CMP (07/03/2024) Glucose Level - 112 mg/dL Sodium Level - 142 mEq/L Potassium Level - 3.6 mEq/L Chloride - 108 mEq/L CO2 - 28 mEq/L Electrolyte Balance - 6.0 mEq/L BUN - 31.0 mg/dL Creatinine Lvl (s) - 1.72 mg/dL BUN/Creatinine Ratio - 18.0 ratio Calcium Lvl - 8.9 mg/dL Total Protein - 6.8 G/dL Albumin Level - 3.6 G/dL Globulin - 3.2 G/dL A/G Ratio - 1.1 ratio Bili Total - 0.20 mg/dL Alk Phos - 84 U/L AST/SGOT - 14 U/L ALT/SGPT - 12 U/L Cortisol Level (07/03/2024) Cortisol Level - 24.9 mcg/dL Free T3 (07/03/2024) Free T3 - 3.72 pg/mL Free T4 (07/03/2024) Free T4 - 1.45 ng/dL LDH (07/03/2024) LDH - 169 U/L TSH (07/03/2024) TSH - 1.757 mIU/mL Allergies penicillin Swelling Additional Information VACCINATE! IT SAVES LIVES! Members of the community who have not yet received the COVID-19 vaccine and would like to receive it can visit one of [facility] vaccine clinics. There are many vaccine clinic locations within the [facility]. For locations and available times, please visit [email or web address] . It is important to note that some COVID mobile vaccine clinics are held outdoors and may be canceled in rainy or stormy conditions. To learn more about pediatric vaccinations (ages 5-11), we invite you to visit the [facility] webpage. [email or web address]/pages [email or web address] [email or web address].html To learn more about the COVID-19 vaccine, we invite you to visit the CDC website for a list of frequently asked questions. https://www.cdc.gov/coronavirus/2019 -ncov/vaccines/faq.html [facility] Patient Portal Access Instructions: Stay connected with your healthcare team and access your personal medical information anytime with the [facility] Patient Portal.If you would like a full copy of your medical records, please contact the [facility] Medical Records Department, Monday through Monday between 8a.m. and 4:30p.m. Please follow the directions below to access the portal: 1.Access the email account you provided upon registration to the [facility].2.Look for an invitation email from [facility].3.Open the email and access the invitation link: Accept Invitation to [facility]4.Fill in the required delaney to create your account. Sign into [email or web address] with your username and password that you created in the above steps to stay up to date. You can then view a summary of results, a summary of your visits, and the ability to download your summaries to your computer or send the information securely to a physician. Remember that your healthcare information is confidential, so carefully consider who you will allow to register on the [facility] Patient Portal for access to your information. You can also access the [facility] Patient Portal on the [employer] julia. Simply click on "Health Records" under "Health Data" and then click on the Plannify logo. HOW TO SAFELY DISPOSE OF PRESCRIPTION MEDICATIONS Please use one of the following methods to safely dispose of your unused medications. 1.Use a drug disposal kit: the drug disposal pouch allows you to safely discard your old and unused drugs. Ask your nurse to give you one when you are discharged.2.Visit a local take-back location: Many local pharmacies and police departments have programs that collect old and unwanted prescription drugs. Call your local pharmacy or go to http://Huan Xiong.Oddslife/[email or web address] to find one close to you.3.Make use of household items: Use cat litter or old coffee grounds to dispose medications if other options are not available. Mix your drugs with these household products, seal them in an airtight container and throw it into the garbage. Call [facility]: [phone] to be sure your drugs can be disposed of in this way. Some medicines may require a different approach.4.Never flush your medications down the toilet. IF YOU HAVE BEEN PRESCRIBED AN OPIOID FOR PAIN If you have been prescribed an opioid (such as hydrocodone, oxycodone or morphine), it is critical to understand the possible side effects and risks of opioid pain medications. Even when taken as directed, opioids can have several side effects including: Tolerance, meaning you might need to take more of a medication for the same pain relief. Nausea, vomiting and/or constipation. Sleepiness, dizziness, dry mouth, confusion, depression or itching. Physical dependence, meaning you have withdrawal symptoms when a medication is stopped, can develop within a few days. KNOW YOUR RESPONSIBILITIES It is important to know exactly how much and how often to take the opioid pain medications you are prescribed. Never take opioids in higher amounts or more often than prescribed. Do not combine opioids with alcohol or other drugs that cause drowsiness, such as benzodiazepines, also known as benzos, including diazepam and alprazolam, muscle relaxants or sleep aids. Never sell or share prescription opioids. This is illegal. Store opioids in a secure place and out of reach of others (including children, family, friends and visitors). The last page of this document has been signed and retained as a CHART COPY. Signatures Patient Education Materials Medication Leaflets My discharge plan and instructions have been reviewed and explained to me and IJESSICA DAVID D understand my current condition and have read and understand these discharge instructions. I have received a written copy of the plan/instructions. If I have questions, I am aware that I should contact my doctor. Patient/Record Keeper Signature: ___ Date/Time: Relationship to Patient: _ Witness Name/Signature: Date/Time: [facility] 06-26-2024 Note Exam Date Time Procedure Performing Provider Status 06/26/24 2:[address] Abdomen/Pelvis w/Contrast ZACARIAS DENNIS MD; Auth (Verified) [id number] ORIGINAL EXAMINATION: CT OF THE ABDOMEN AND PELVIS WITH CONTRAST 06/26/2024 2:49 pm TECHNIQUE: CT of the abdomen and pelvis was performed with the administration of intravenous contrast. Multiplanar reformatted images are provided for review. Automated exposure control, iterative reconstruction, and/or weight based adjustment of the mA/kV was utilized to reduce the radiation dose to as low as reasonably achievable. COMPARISON: 01/19/2024 HISTORY: ORDERING SYSTEM PROVIDED HISTORY: Reason for Exam: Monitor for progression, no current complaints. Renal cell carcinoma 2020 FINDINGS: Recist 1.1: POTENTIAL TARGET TUMOR LESIONS (maximum 5 lesions, maximum 2 per organ, longest dimension in axial plane reported, >10 mm, reproducible lesions): - None POTENTIAL TARGET LYMPH NODES (>15 mm short axis, maximum 2): - None NONTARGET LESIONS (Definite tumor lesions, lymph nodes 10-14 mm short axis, immeasurable lesions such as lymphangitic involvement, ascites, pleural effusions, etc.): - None Lower Chest: Same day CT chest reported separately. Organs: Stable subcentimeter right hepatic lobe hypodensities which likely represent cysts or hemangiomas. Gallbladder, pancreas, spleen and adrenal glands are unremarkable. Kidneys: Left nephrectomy. No suspicious soft tissue lesion within the nephrectomy bed. No right renal mass, calculus or hydronephrosis. Pelvis: Unremarkable bladder. No pelvic or inguinal lymphadenopathy. GI: No dilation or wall thickening of the bowel. Stable posterolateral left hernia containing a short segment of proximal descending colon. No evidence of obstruction or inflammatory changes within the hernia sac. Unremarkable appendix. No free intraperitoneal air. No abdominal lymphadenopathy. Vasculature: Atherosclerotic and nonaneurysmal abdominal aorta. Soft Tissues: No acute soft tissue findings. Bones: No acute osseous findings. Stable pathologic fracture of T11. IMPRESSION: Stable exam with no evidence of recurrent or new potential metastatic disease. I have personally reviewed the images of this examination and agree with the resident's findings and interpretation. Interpreted by: Rachell Dennis MD Preliminary Report By: Eileen Krishnan Electronically signed By Rachell Dennis MD Dictated Date: 06/26/2024 4:19:22 PM Prelim Date: 06/26/2024 4:46:12 PM Sign Date: 06/26/2024 4:46:12 PM Ordering Provider: [facility]04-23-2025 Summary of episode note LYNDSAY LOPEZ :1980 Visit Date:06/05/2024 Your Visit Summary Your Diagnosis Metastatic renal cell carcinoma. S/P Left cytoreductive nephrectomy 08/14/20. Final path - ccRCC withsarcomatoid features. Metastatic renal cell carcinoma. S/P Left cytoreductive nephrectomy 08/14/20. Final path - ccRCC withsarcomatoid features. Secondary malignant neoplasm of bone (disorder) Active Tests Performed .Auto Differential .Estimated Glomerular Filtration Rate .Neutro Absolute CBC CMP Cortisol Level Free T3 Free T4 LDH TSH Your Care Team Attending Physician - EZEQUIEL LEAL EKG MONITOR-WORD PROCESSING SPECIALIST Primary Care Physician - PROSPER MANJARREZ DO Vitals Temperature (Oral) 97.7 F (36.5 C) Heart Rate 66 Blood Pressure 105/72 Height 67.80 in (172.2 cm) Weight 296.13 lb (134.3 kg) BMI 45.29 What to do next Instructions From Your Doctor You have received the following therapy today: Chemotherapy/Immunotherapy Call your physician if any of the following problems occur: Nausea/Vomiting Mouth Sores Diarrhea Fever Prolonged bleeding or easy bruising Pain or discomfort at the injection site Scheduled Follow-Up Appointments Appointment Type When With Where Contact Information Status Wellness Annual 06/13/2024 02:30 PM EDT PROSPER MANJARREZ DO [facility] Confirmed yyCT Abdomen and Pelvis w/ Contrast 3 06/26/2024 01:00 PM EDT [facility] [phone] Confirmed yyCT Chest w/ Contrast 3 06/26/2024 01:30 PM EDT [facility] [phone] Confirmed HEM ONC OV Follow Up w/ Active Treatme 07/03/2024 10:30 AM EDT BHAVIK TRIANA MD Hematology and Oncology Confirmed PALL OV Follow Up 07/03/2024 11:00 AM EDT LIAN FUNG MD Palliative Care Confirmed Medications What How Much When Why Instructions Unchanged amiodarone (amiodarone 200 mg oral tablet) 1 tab(s) by mouth Once a day Unchanged betamethasone-clotrimazole topical (betamethasone-clotrimazole 0.05%- 1% topical cream) 1 application Topical Two (2) times a day Rash for 2 weeks then take 1 week off, may repeat if needed Unchanged empagliflozin (Jardiance 10 mg oral tablet) 1 tab(s) by mouth Once a day (in the morning) Duration: 30 Days Unchanged famotidine (famotidine 20 mg oral tablet) See instructions 1 tab(s) Oral BID as needed for heart burn Unchanged furosemide (Lasix 40 mg oral tablet) 1 tab(s) by mouth Two (2) times a day Unchanged metoprolol (metoprolol tartrate 25 mg oral tablet) 1 tab(s) by mouth Two (2) times a day Unchanged ondansetron (Zofran 4 mg oral tablet) 1 tab(s) by mouth Every 6 hours as needed for Nausea/Vomiting Unchanged oxyCODONE (oxyCODONE 5 mg oral tablet ( IMMEDIATE release )) 1 tab(s) by mouth Every 8 hours as needed for for pain Cancer related pain Metastatic renal cell carcinoma. S/P Left cytoreductive nephrectomy 08/14/20. Final path - ccRCC withsarcomatoid features. Unchanged riociguat (Adempas 1 mg oral tablet) 1 tab(s) by mouth Three (3) times a day Pulmonary hypertension Unchanged senna (senna (sennosides) 8.6 mg oral tablet) 2 tab(s) by mouth Two (2) times a day as needed for as needed for constipation Unchanged spironolactone (Aldactone 25 mg oral tablet) 1 tab(s) by mouth Once a day Take with food Unchanged warfarin (warfarin 2 mg oral tablet) 1 tab(s) by mouth Once a day Test Results .Auto Differential (06/05/2024) Neutrophil % - 64.2 % Lymphocyte % - 16.4 % Monocyte % - 8.9 % Eosinophil % - 9.8 % Basophil % - 0.7 % Lymphocyte, Absolute - 1.4 10^3/mcL Monocyte, Absolute - 0.8 10^3/mcL Eosinophil, Absolute - 0.810^3/mcL Basophil, Absolute - 0.1 10^3/mcL .Estimated Glomerular Filtration Rate (06/05/2024) Estimated Glomerular Filtration Rate - 48 ml/min/1.73sqm .Neutro Absolute (06/05/2024) Neutrophil, Absolute - 5.5 10^3/mcL CBC (06/05/2024) WBC - 8.6 10^3/mcL RBC - 4.59 10^6/mcL Hgb - 14.5 G/dL Hct - 43.3 % MCV - 94.4 fL MCH - 31.6 pg MCHC - 33.5 G/dL RDW - 18.9 % Platelet - 253 10^3/mcL MPV - 7.6 fL CMP (06/05/2024) Glucose Level - 113 mg/dL Sodium Level - 140 mEq/L Potassium Level - 4.0 mEq/L Chloride - 105 mEq/LCO2 - 30 mEq/L Electrolyte Balance - 5.0 mEq/L BUN - 22.0 mg/dL Creatinine Lvl (s) - 1.76 mg/dL BUN/Creatinine Ratio - 12.5 ratio Calcium Lvl - 9.3 mg/dL Total Protein - 7.0 G/dL Albumin Level - 3.8 G/dL Globulin - 3.2 G/dL A/G Ratio - 1.2 ratio Bili Total - 0.40 mg/dL Alk Phos - 83 U/L AST/SGOT - 16 U/L ALT/SGPT - 20 U/L Cortisol Level (06/05/2024) Cortisol Level - 14.8 mcg/dL Free T3 (06/05/2024) Free T3 - 3.29 pg/mL Free T4 (06/05/2024) Free T4 - 1.53 ng/dL LDH (06/05/2024) LDH - 192 U/L TSH (06/05/2024) TSH - 1.201 mIU/mL Allergies penicillin Swelling Additional Information VACCINATE! IT SAVES LIVES! Members of the community who have not yet received the COVID-19 vaccine and would like to receive it can visit one of [facility] vaccine clinics. There are many vaccine clinic locations within the [facility]. For locations and available times, please visit [email or web address] It is important to note that some COVID mobile vaccine clinics are held outdoors and may be canceled in rainy or stormy conditions. To learn more about pediatric vaccinations (ages 5-11), we invite you to visit the [facility] webpage. https://www.[facility].org/pages/[email or web address]-[email or web address] stions.htmlTo learn more about the COVID-19 vaccine, we invite you to visit the CDC website for a list of frequently asked questions. https://www.cdc.gov/coronavirus/2019-ncov/vaccines/faq.html [facility] Patient Portal Access Instructions: Stay connected with your healthcare team and access your personal medical information anytime with the [facility] Patient Portal.If you would like a full copy of your medical records, please contact the [facility] Medical Records Department, Monday through Monday between 8a.m. and 4:30p.m. Please follow the directions below to access the portal: 1.Access the email account you provided upon registration to the hospital.2.Look for an invitation email from [facility].3.Open the email and access the invitation link: Accept Invitation to [facility]4.Fill in the required delaney to create your account. Sign into [email or web address] with your username and password that you created in the above steps to stay up to date. You can then view a summary of results, a summary of your visits, and the ability to download your summaries to your computer or send the information securely to a physician. Remember that your healthcare information is confidential, so carefully consider who you will allow to register on the [facility] Patient Portal for access to your information. You can also access the [facility] Patient Portal on the [employer]. Simply click on "Health Records" under "HealthData" and then click on the Plannify logo. HOW TO SAFELY DISPOSE OF PRESCRIPTION MEDICATIONS Please use one of the following methods to safely dispose of your unused medications. 1.Use a drug disposal kit: the drug disposal pouch allows you to safely discard your old and unuseddrugs. Ask your nurse to give you one when you are discharged.2.Visit a local take-back location: Many local pharmacies and police departments have programs that collect old and unwanted prescriptiondrugs. Call your local pharmacy or go to http://Huan Xiong.Oddslife/1Z6Te4g to find one close to you.3.Make use of household items: Use cat litter or old coffee grounds to dispose medications if other options arenot available. Mix your drugs with these household products, seal them in an airtight container andthrow it into the garbage. Call [facility]: [phone] to be sure your drugs can be disposed of in this way. Some medicines may require a different approach.4.Never flush your medications down the toilet. IF YOU HAVE BEEN PRESCRIBED AN OPIOID FOR PAIN If you have been prescribed an opioid (such as hydrocodone, oxycodone or morphine), it is critical to understand the possible side effects and risks of opioid pain medications. Even when taken as directed, opioids can have several side effects including: Tolerance, meaning you might need to take more of a medication for the same pain relief. Nausea, vomiting and/or constipation. Sleepiness, dizziness, dry mouth, confusion, depression or itching. Physical dependence, meaning you have withdrawal symptoms when a medication is stopped, can develop within a few days. KNOW YOUR RESPONSIBILITIES It is important to know exactly how much and how often to take the opioid pain medications you are prescribed. Never take opioids in higher amounts or more often than prescribed. Do not combine opioids with alcohol or other drugs that cause drowsiness, such as benzodiazepines, also known as benzos, including diazepam and alprazolam, muscle relaxants or sleep aids. Never sell or share prescription opioids. This is illegal. Store opioids in a secure place and out of reach of others (including children, family, friends and visitors). The last page of this document has been signed and retained as a CHART COPY. Signatures Patient Education Materials Medication Leaflets My discharge plan and instructions have been reviewed and explained to me and IJESSICA DAVID D understand my current condition and have read and understand these discharge instructions. I have received a written copy of the plan/instructions. If I have questions, I am aware that I should contact my doctor. Patient/Record Keeper Signature: Date/Time: Relationship to Patient: Witness Name/Signature: [id number] Summary of episode note LYNDSAY LOPEZ :1980 Visit Date:04/30/2024 Your Visit Summary Your Diagnosis Metastatic renal cell carcinoma. S/P Left cytoreductive nephrectomy 08/14/20. Final path - ccRCC withsarcomatoid features. Metastatic renal cell carcinoma. S/P Left cytoreductive nephrectomy 08/14/20. Final path - ccRCC withsarcomatoid features. Other care home (current) drug therapy Secondary malignant neoplasm of bone (disorder) Active Tests Performed .Auto Differential .Estimated Glomerular Filtration Rate .Neutro Absolute CBC CMP Cortisol Level Free T3 Free T4 LDH TSH Your Care Team Attending Physician - BHAVIK TRIANA MD Primary Care Physician - PROSPER MANJARREZ DO Vitals Temperature (Oral) 97.3 F (36.3 C) Heart Rate 68 Respiratory Rate 18 Blood Pressure 124/71 Height 67.80 in (172.2 cm) Weight 292.82 lb (132.8 kg) BMI 44.78 What to do next Scheduled Follow-Up Appointments Appointment Type When With Where Contact Information StatusyyCT ABD and Pelvis w/o Contrast 05/21/2024 01:15 PM EDT [facility] [phone] Confirmed yyCT Chest w/o Contrast 05/21/2024 01:45 PM EDT [facility] [phone] Confirmed PC Nurse Protime 05/22/2024 02:15 PM EDT [facility] [address] [place] [address] Confirmed HEM ONC OV Follow Up w/ Active Treatme 05/28/2024 10:15 AM EDT BHAVIK TRIANA MD Hematology and Oncology Confirmed PALL OV Follow Up 05/28/2024 01:00 PM EDT LIAN FUNG MD Palliative Care Confirmed PC OV 05/29/2024 02:00 PM EDT PROSPER MANJARREZ DO [id number] [place] [address] Confirmed Medications What How Much When Why Instructions Unchanged amiodarone (amiodarone 200 mg oral tablet) 1 tab(s) by mouth Once a day Unchanged betamethasone-clotrimazole topical (betamethasone-clotrimazole 0.05%- 1% topical cream) 1 application Topical Two (2) times a day Rash for 2 weeks then take 1 week off, may repeat if needed Unchanged empagliflozin (Jardiance 10 mg oral tablet) 1 tab(s) by mouth Once a day (in the morning) Duration: 30 Days Unchanged famotidine (famotidine 20 mg oral tablet) See instructions 1 tab(s) Oral BID as needed for heart burn Unchanged furosemide (Lasix 40 mg oral tablet) 1 tab(s) by mouth Two (2) times a day Unchanged metoprolol (metoprolol tartrate 25 mg oral tablet) 1 tab(s) by mouth Two (2) times a day Unchanged ondansetron (Zofran 4 mg oral tablet) 1 tab(s) by mouth Every 6 hours as needed for Nausea/Vomiting Unchanged oxyCODONE (oxyCODONE 5 mg oral tablet ( IMMEDIATE release )) 1 tab(s) by mouth Every 8 hours as needed for for pain Cancer related pain Metastatic renal cell carcinoma. S/P Left cytoreductive nephrectomy 08/14/20. Final path - ccRCC withsarcomatoid features. may fill on Unchanged riociguat (Adempas 1 mg oral tablet) 1 tab(s) by mouth Three (3) times a day Unchanged senna (senna (sennosides) 8.6 mg oral tablet) 2 tab(s) by mouth Two (2) times a day as needed for as needed for constipation Unchanged spironolactone (Aldactone 25 mg oral tablet) 1 tab(s) by mouth Once a day Take with food Unchanged warfarin (warfarin 2 mg oral tablet) 1 tab(s) by mouth Once a day Test Results .Auto Differential (04/30/2024) Neutrophil % - 65.3 % Lymphocyte % - 19.7 % Monocyte % - 9.9 % Eosinophil % - 4.3 % Basophil % - 0.8 % Lymphocyte, Absolute - 1.6 10^3/mcL Monocyte, Absolute - 0.8 10^3/mcL Eosinophil, Absolute - 0.410^3/mcL Basophil, Absolute - 0.1 10^3/mcL .Estimated Glomerular Filtration Rate (04/30/2024) Estimated Glomerular Filtration Rate - 56 ml/min/1.73sqm .Neutro Absolute (04/30/2024) Neutrophil, Absolute - 5.4 10^3/mcL CBC (04/30/2024) WBC - 8.3 10^3/mcL RBC - 4.39 10^6/mcL Hgb - 13.9 G/dL Hct - 41.2 % MCV - 93.9 fL MCH - 31.7 pg MCHC - 33.8 G/dL RDW - 19.8 % Platelet - 328 10^3/mcL MPV - 6.8 fL CMP (04/30/2024) Glucose Level - 96 mg/dL Sodium Level - 137 mEq/L Potassium Level - 4.3 mEq/L Chloride - 102 mEq/L CO2 - 27 mEq/L Electrolyte Balance - 8.0 mEq/L BUN - 23.0 mg/dL Creatinine Lvl (s) - 1.56 mg/dL BUN/Creatinine Ratio - 14.7 ratio Calcium Lvl - 9.6 mg/dL Total Protein - 7.0 G/dL Albumin Level - 3.7 G/dL Globulin - 3.3 G/dL A/G Ratio - 1.1 ratio Bili Total - 0.60 mg/dL Alk Phos - 74 U/L AST/SGOT - 22 U/L ALT/SGPT - 15 U/L Cortisol Level (04/30/2024) Cortisol Level - 8.3 mcg/dL Free T3 (04/30/2024) Free T3 - 4.16 pg/mL Free T4 (04/30/2024) Free T4 - 1.81 ng/dL LDH (04/30/2024) LDH - 189 U/L TSH (04/30/2024) TSH - 3.504 mIU/mL Allergies penicillin Swelling Additional Information VACCINATE! IT SAVES LIVES! Members of the community who have not yet received the COVID-19 vaccine and would like to receive it can visit one of [facility] vaccine clinics. There are many vaccine clinic locations within the [facility]. For locations and available times, please visit [email or web address]/. It is important to note that some COVID mobile vaccine clinics are held outdoors and may be canceled in rainy or stormy conditions. To learn more about pediatric vaccinations (ages 5-11), we invite you to visit the [facility] webpage. https://www.[email or web address]/pages/5408-Ytdvd-Yuajwxmziyk-Jxihgjqknw-Fvbhn-Bss stions.htmlTo learn more about the COVID-19 vaccine, we invite you to visit the CDC website for a list of frequently asked questions. https://www.cdc.gov/coronavirus/2019-ncov/vaccines/faq.html [facility] Patient Portal Access Instructions: Stay connected with your healthcare team and access your personal medical information anytime with the [facility] Patient Portal.If you would like a full copy of your medical records, please contact the [facility] Medical Records Department, Monday through Monday between 8a.m. and 4:30p.m. Please follow the directions below to access the portal: 1.Access the email account you provided upon registration to the hospital.2.Look for an invitation email from [facility].3.Open the email and access the invitation link: Accept Invitation to [facility]4.Fill in the required delaney to create your account. Sign into [email or web address] with your username and password that you created in the above steps to stay up to date. You can then view a summary of results, a summary of your visits, and the ability to download your summaries to your computer or send the information securely to a physician. Remember that your healthcare information is confidential, so carefully consider who you will allow to register on the [facility] Patient Portal for access to your information. You can also access the [facility] Patient Portal on the Tourjive. Simply click on "Health Records" under "HealthData" and then click on the Plannify logo. HOW TO SAFELY DISPOSE OF PRESCRIPTION MEDICATIONS Please use one of the following methods to safely dispose of your unused medications. 1.Use a drug disposal kit: the drug disposal pouch allows you to safely discard your old and unuseddrugs. Ask your nurse to give you one when you are discharged.2.Visit a local take-back location: Many local pharmacies and police departments have programs that collect old and unwanted prescriptiondrugs. Call your local pharmacy or go to http://Huan Xiong.Oddslife/0Q8Ip9w to find one close to you.3.Make use of household items: Use cat litter or old coffee grounds to dispose medications if other options arenot available. Mix your drugs with these household products, seal them in an airtight container andthrow it into the garbage. Call [facility]: [phone] to be sure your drugs can be disposed of in this way. Some medicines may require a different approach.4.Never flush your medications down the toilet. IF YOU HAVE BEEN PRESCRIBED AN OPIOID FOR PAIN If you have been prescribed an opioid (such as hydrocodone, oxycodone or morphine), it is critical to understand the possible side effects and risks of opioid pain medications. Even when taken as directed, opioids can have several side effects including: Tolerance, meaning you might need to take more of a medication for the same pain relief. Nausea, vomiting and/or constipation. Sleepiness, dizziness, dry mouth, confusion, depression or itching. Physical dependence, meaning you have withdrawal symptoms when a medication is stopped, can develop within a few days. KNOW YOUR RESPONSIBILITIES It is important to know exactly how much and how often to take the opioid pain medications you are prescribed. Never take opioids in higher amounts or more often than prescribed. Do not combine opioids with alcohol or other drugs that cause drowsiness, such as benzodiazepines, also known as benzos, including diazepam and alprazolam, muscle relaxants or sleep aids. Never sell or share prescription opioids. This is illegal. Store opioids in a secure place and out of reach of others (including children, family, friends and visitors). The last page of this document has been signed and retained as a CHART COPY. Signatures Patient Education Materials Medication Leaflets My discharge plan and instructions have been reviewed and explained to me and JESSICA Oleary DAVID D understand my current condition and have read and understand these discharge instructions. I have received a written copy of the plan/instructions. If I have questions, I am aware that I should contact my doctor. Patient/Record Keeper Signature: Date/Time: Relationship to Patient: Witness Name/Signature: Date/Time: [id number] Note. MICRO - Microbiology PROCEDURE: Urine Culture [*1] SOURCE: Urine BODY SITE: COLLECTED DATE/TIME: 04/02/2024 14:21 EST RECEIVED DATE/TIME: 04/02/2024 20:30 EST START DATE/TIME: 04/02/2024 20:30 EST FREE TEXT SOURCE: FINAL REPORTS Final Report [] Verified Date/Time/Personnel: 04/04/2024 09:20 EST >100,000 cfu/ml Enterobacter cloacae complex PRELIMINARY REPORTS Preliminary Report [] Verified Date/Time/Personnel: 04/03/2024 10:21 EST >100,000 cfu/ml Enterobacter cloacae complex KEN to follow SUSCEPTIBILITY RESULTS Enterobacter cloacae complex Antibiotic KEN Dilut KNE Inter Ampicillin 16 Intermediate Ampicillin/ 16/8 Intermediate Sulbactam Aztreonam <=4 Susceptible Cefazolin >16 Resistant Ceftriaxone <=1 Susceptible Cefuroxime >16 Resistant Ciprofloxacin <=0.25 Susceptible Ertapenem <=0.5 Susceptible Gentamicin <=2 Susceptible ID Panel Not Not Applicable Applicable Imipenem <=1 Susceptible Levofloxacin <=0.5 Susceptible Meropenem <=1 Susceptible Minocycline >8 Resistant Nitrofurantoin 64 Intermediate Piperacillin/ <=8 Susceptible Tazobactam Trimethoprim/ <=0.5/9.5 Susceptible Sulfa Performing Locations *1: This test was performed at: [facility], [address] [place] [address], [id number] , [facility] [id number] Summary of episode note LYNDSAY LOPEZ :1980 Visit Date:04/02/2024 Your Visit Summary Your Diagnosis Metastatic renal cell carcinoma. S/P Left cytoreductive nephrectomy 08/14/20. Final path - ccRCC withsarcomatoid features. Metastatic renal cell carcinoma. S/P Left cytoreductive nephrectomy 08/14/20. Final path - ccRCC withsarcomatoid features. 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 Your Care Team Attending Physician - EZEQUIEL LEAL Primary Care Physician - PROSPER MANJARREZ DO Vitals Temperature (Oral) 97.7 F (36.5 C) Heart Rate 67 Blood Pressure 116/61 Weight 304.73 lb (138.2 kg) What to do next Instructions From Your Doctor You have received the following therapy today: Chemotherapy/Immunotherapy Call your physician if any of the following problems occur: Nausea/Vomiting Mouth Sores Diarrhea Fever Prolonged bleeding or easy bruising Pain or discomfort at the injection site Scheduled Follow-Up Appointments Appointment Type When With Where Contact Information StatusGS OV 04/04/2024 02:00 PM AISHWARYA MASTERSON MD [facility] General [facility] [place] Confirmed CV OV 04/10/2024 10:30 AM HAN StarkeyDiogo [facility] CVC Confirmed PC Nurse Protime 04/24/2024 02:15 PM EDT [facility] [address] [place] [address] Confirmed HEM ONC OV Follow Up w/EKG MONITOR Active Treat 04/30/2024 01:30 PM EDT EZEQUIEL LEAL [facility] Confirmed PALL OV Follow Up 05/28/2024 01:00 PM EDT LIAN FUNG [facility] Confirmed PC OV 05/29/2024 02:00 PM PROSPER MEADOWS DO [facility] [place] [address] [place] [address] Confirmed Medications What How Much When Why Instructions Changed furosemide (Lasix 40 mg oral tablet) 1 tab(s) by mouth Two (2) times a day Changed oxyCODONE (oxyCODONE 5 mg oral tablet ( IMMEDIATE release )) 1 tab(s) by mouth Every 8 hours as needed for for pain Cancer related pain Metastatic renal cell carcinoma. S/P Left cytoreductive nephrectomy 08/14/20. Final path - ccRCC withsarcomatoid features. may fill on Changed oxyCODONE (oxyCODONE 5 mg oral tablet ( IMMEDIATE release )) 1 tab(s) by mouth Every 8 hours as needed for for pain Renal cancer Cancer related pain may fill on Unchanged amiodarone (amiodarone 200 mg oral tablet) 1 tab(s) by mouth Once a day Unchanged betamethasone-clotrimazole topical (betamethasone-clotrimazole 0.05%- 1% topical cream) 1 application Topical Two (2) times a day Rash for 2 weeks then take 1 week off, may repeat if needed Unchanged empagliflozin (Jardiance 10 mg oral tablet) 1 tab(s) by mouth Once a day (in the morning) Duration: 30 Days Unchanged famotidine (famotidine 20 mg oral tablet) See instructions 1 tab(s) Oral BID as needed for heart burn Unchanged linezolid (linezolid 600 mg oral tablet) 1 tab(s) by mouth Every 12 hours Abscess of leg Duration: 10 Days Unchanged linezolid (linezolid 600 mg oral tablet) by mouth Every 12 hours Unchanged metoprolol (metoprolol tartrate 25 mg oral tablet) 1 tab(s) by mouth Two (2) times a day Unchanged ondansetron (Zofran 4 mg oral tablet) 1 tab(s) by mouth Every 6 hours as needed for Nausea/Vomiting Unchanged riociguat (Adempas 1 mg oral tablet) 1 tab(s) by mouth Three (3) times a day Unchanged senna (senna (sennosides) 8.6 mg oral tablet) 2 tab(s) by mouth Two (2) times a day as needed for as needed for constipation Unchanged spironolactone (Aldactone 25 mg oral tablet) 1 tab(s) by mouth Once a day Take with food Unchanged warfarin (warfarin 2 mg oral tablet) 1 tab(s) by mouth Once a day Test Results .Auto Differential (04/02/2024) Neutrophil % - 63.2 % Lymphocyte % - 19.0 % Monocyte % - 7.6 % Eosinophil % - 8.8 % Basophil % - 1.4 % Lymphocyte, Absolute - 1.8 10^3/mcL Monocyte, Absolute - 0.7 10^3/mcL Eosinophil, Absolute - 0.810^3/mcL Basophil, Absolute - 0.1 10^3/mcL .Estimated Glomerular Filtration Rate (04/02/2024) Estimated Glomerular Filtration Rate - 41 ml/min/1.73sqm .Neutro Absolute (04/02/2024) Neutrophil, Absolute - 5.9 10^3/mcL CBC (04/02/2024) WBC - 9.4 10^3/mcL RBC - 4.48 10^6/mcL Hgb - 13.7 G/dL Hct - 41.1 % MCV - 91.7 fL MCH - 30.5 pg MCHC - 33.3 G/dL RDW - 18.1 % Platelet - 273 10^3/mcL MPV - 7.5 fL CMP (04/02/2024) Glucose Level - 115 mg/dL Sodium Level - 140 mEq/L Potassium Level - 4.3 mEq/L Chloride - 102 mEq/LCO2 - 34 mEq/L Electrolyte Balance - 4.0 mEq/L BUN - 26.0 mg/dL Creatinine Lvl (s) - 2.02 mg/dL BUN/Creatinine Ratio - 12.9 ratio Calcium Lvl - 9.1 mg/dL Total Protein - 7.1 G/dL Albumin Level - 3.6 G/dL Globulin - 3.5 G/dL A/G Ratio - 1.0 ratio Bili Total - 0.50 mg/dL Alk Phos - 95 U/L AST/SGOT - 17 U/L ALT/SGPT - 12 U/L Cortisol Level (04/02/2024) Cortisol Level - 15.4 mcg/dL Free T3 (04/02/2024) Free T3 - 3.44 pg/mL Free T4 (04/02/2024) Free T4 - 1.62 ng/dL LDH (04/02/2024) LDH - 169 U/L TSH (04/02/2024) TSH - 1.657 mIU/mL Allergies penicillin Swelling Additional Information VACCINATE! IT SAVES LIVES! Members of the community who have not yet received the COVID-19 vaccine and would like to receive it can visit one of [facility] vaccine clinics. There are many vaccine clinic locations within the [facility]. For locations and available times, please visit [email or web address] It is important to note that some COVID mobile vaccine clinics are held outdoors and may be canceled in rainy or stormy conditions. To learn more about pediatric vaccinations (ages 5-11), we invite you to visit the [facility] webpage. [email or web address] learn more about the COVID-19 vaccine, we invite you to visit the CDC website for a list of frequently asked questions. https://www.cdc.gov/coronavirus/2019-ncov/vaccines/faq.html [facility] Patient Portal Access Instructions: Stay connected with your healthcare team and access your personal medical information anytime with the [facility] Patient Portal.If you would like a full copy of your medical records, please contact the [facility] Medical Records Department, Monday through Monday between 8a.m. and 4:30p.m. Please follow the directions below to access the portal: 1.Access the email account you provided upon registration to the hospital.2.Look for an invitation email from [facility].3.Open the email and access the invitation link: Accept Invitation to [facility]4.Fill in the required delaney to create your account. Sign into [email or web address] with your username and password that you created in the above steps to stay up to date. You can then view a summary of results, a summary of your visits, and the ability to download your summaries to your computer or send the information securely to a physician. Remember that your healthcare information is confidential, so carefully consider who you will allow to register on the [facility] Patient Portal for access to your information. You can also access the [facility] Patient Portal on the Tourjive. Simply click on "Health Records" under "[employer]" and then click on the Plannify logo. HOW TO SAFELY DISPOSE OF PRESCRIPTION MEDICATIONS Please use one of the following methods to safely dispose of your unused medications. 1.Use a drug disposal kit: the drug disposal pouch allows you to safely discard your old and unuseddrugs. Ask your nurse to give you one when you are discharged.2.Visit a local take-back location: Many local pharmacies and police departments have programs that collect old and unwanted prescriptiondrugs. Call your local pharmacy or go to http://Huan Xiong.Oddslife/9Q9Wr3g to find one close to you.3.Make use of household items: Use cat litter or old coffee grounds to dispose medications if other options arenot available. Mix your drugs with these household products, seal them in an airtight container andthrow it into the garbage. Call [facility]: [phone] to be sure your drugs can be disposed of in this way. Some medicines may require a different approach.4.Never flush your medications down the toilet. IF YOU HAVE BEEN PRESCRIBED AN OPIOID FOR PAIN If you have been prescribed an opioid (such as hydrocodone, oxycodone or morphine), it is critical to understand the possible side effects and risks of opioid pain medications. Even when taken as directed, opioids can have several side effects including: Tolerance, meaning you might need to take more of a medication for the same pain relief. Nausea, vomiting and/or constipation. Sleepiness, dizziness, dry mouth, confusion, depression or itching. Physical dependence, meaning you have withdrawal symptoms when a medication is stopped, can develop within a few days. KNOW YOUR RESPONSIBILITIES It is important to know exactly how much and how often to take the opioid pain medications you are prescribed. Never take opioids in higher amounts or more often than prescribed. Do not combine opioids with alcohol or other drugs that cause drowsiness, such as benzodiazepines, also known as benzos, including diazepam and alprazolam, muscle relaxants or sleep aids. Never sell or share prescription opioids. This is illegal. Store opioids in a secure place and out of reach of others (including children, family, friends and visitors). The last page of this document has been signed and retained as a CHART COPY. Signatures Patient Education Materials Medication Leaflets My discharge plan and instructions have been reviewed and explained to me and I,JESSICA LYNDSAY Lele understand my current condition and have read and understand these discharge instructions. I have received a written copy of the plan/instructions. If I have questions, I am aware that I should contact my doctor. Patient/Record Keeper Signature: Date/Time: Relationship to Patient: Witness Name/Signature: Date/Time: [id number] Note Chief Complaint pain History of Present Illness I saw the patient in infusion today. He has generally been doing well since our last visit though he has developed a abscess under the skin on his right thigh. It is improving with antibiotics (linezolid) prescribed by his PCP. Otherwise he been doing well with current treatment. Most recent scan shows stable disease. He has control of his pain with the ongoing use of oxycodone which he uses 2-3 times daily. He has been eating well.His weight has been better controlled and his edema has been much better controlled with current treatment. He is having no nausea or vomiting. Review of Systems He has no fevers or chills. He denies any chest pain or palpitations. He said no shortness of breath exacerbation. Edema is better. Physical Exam Vitals and Measurements T: 36.8 C (Oral) HR: 67 BP: 109/51 HT: 172.5 cm WT: 135.4 kg BMI: 45.5 Skin shows no rash. Pupils are reactive. Oral mucosa is moist. Lungs are clear. Heart sounds are regular. Abdomen is soft and nontender. Moves all extremities. Awake and alert. Social History Smoking Status - 11/07/2016 Current every day smoker Alcohol - Medium Risk, 11/07/2016 Use: Past. Type: Beer. Frequency: Daily. Previous treatment: Outpatient. Has alcohol use interferedwith work or home life: No. Do you ever drink more than intended: Yes. Has anyone been hurt or at risk by your drinking: Yes. Ready to change: Yes., 10/31/2023 Employment/School Status: Employed., 12/16/2020 Home/Environment Domestic Concerns: None. Living situation: Home with assistance. 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 Safe place to go: Yes. Lives In: Single level home, 1st floor bedroom, 1st floor bathroom, 1st floor laundry., 08/14/2020 Nutrition/Health Type of diet: Regular. Appetite Fair. Eating Difficulties None., 12/21/2023 Caffeine intake amount: couple bottles a week., 10/20/2022 Substance Abuse - Denies Substance Abuse, 11/07/2016 Use: Current. Type: Marijuana. Frequency: 1-2 times per month. IV drug use; No. Ready to change: No. Concerns about substance abuse in household: No., 08/14/2020 Tobacco Nicotine Use: 10 or more cigarettes (1/2 pack or more)/day in last 30 days, Quit July; started again the end of August or beginning of September. Type: Cigarettes. Started at age: 13 Years. Ready to change: Yes., 10/20/2022 Family History Bladder cancer: Negative: Mother, Father, Sister, Brother, Daughter, Son and Grandparent. Crohn's disease: Sister. Diabetes: Father. HTN - Hypertension: Mother and Father. Heart attack: Father. Heart disease: Negative: Mother, Father, Sister, Brother, Daughter, Son and Grandparent. Hypertension: Mother and Father.Negative: Sister, Brother, Daughter, Son and Grandparent. Kidney disease: Negative: Mother, Father, Sister, Brother, Daughter, Son and Grandparent. Kidney stone: Mother and Sister.Negative: Father, Brother, Daughter, Son and Grandparent. Prostate cancer: Negative: Father, Brother and Son. Renal cancer: Negative: Mother, Father, Sister, Brother, Daughter, Son and Grandparent. Rheumatoid arthritis: Mother. Health Status Family Member(s) Assessment/Plan 1. Palliative care encounter Plan to see him again in 1 month. 2. Cancer related pain I have renewed his oxycodone after review of his OARRS report. 3. Metastatic renal cell carcinoma. S/P Left cytoreductive nephrectomy 08/14/20. 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 He continues with current treatment. 4. Metastasis to bone 5. Therapeutic opioid-induced constipation (OIC) His bowels been moving well with current regimen. 6. Chronic obstructive pulmonary disease 7. Obesity hypoventilation syndrome 8. Heart failure with preserved ejection fraction 9. Other secondary pulmonary hypertension 10. Paroxysmal atrial fibrillation 11. History of pulmonary embolism 12. Tobacco use 13. Obesity Medication Administration Given 9s1 100 mL + [id number] 480 mg, IV Piggyback. For: Metastatic renal cell carcinoma. S/P Left cytoreductive nephrectomy 08/14/20. 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 Problem List/Past Medical History Ongoing Cancer related pain History of pulmonary embolism Left renal mass. 9.6-cm. With perinephric fat invasion. With lytic bony lesion and pulmonary nodules concerning for mets. BS, 07/2020 - neg. CT brain, 07/2020 - neg. S/P Radical nephrectomy 08/14/20. Metastatic renal cell carcinoma. S/P Left cytoreductive nephrectomy 08/14/20. Final path - ccRCC withsarcomatoid features. Morbid obesity due to excess calories No chronic diseases present Palliative care encounter T11 vertebral fracture Therapeutic opioid-induced constipation (OIC) Tobacco abuse Viral gastroenteritis Cigarette smoker Active Lung nodule, multiple Active Marijuana user Active Secondary malignant neoplasm of bone (disorder) Active Historical Alcohol abuse Renal cell carcinoma (disorder) Active Procedure/Surgical History Drainage: 01/25/24 Open heart surgery: 08/17/22 Tooth extraction: 08/28/21 Nephrectomy, including partial ureterectomy, any open approach including rib resection; radical, with regional lymphadenectomy and/or vena caval thrombectomy: 08/14/20 Tonsillectomy Boost radiation therapy Chemotherapy Allergies penicillin Swelling Medications What How Much When Why Instructions Last Dose Changed linezolid (linezolid 600 mg oral tablet) 1 tab(s) by mouth Every 12 hours Abscess of leg Duration: 10 Days Changed linezolid (linezolid 600 mg oral tablet) by mouth Every 12 hours Unchanged amiodarone (amiodarone 200 mg oral tablet) 1 tab(s) by mouth Once a day Unchanged betamethasone-clotrimazole topical (betamethasone-clotrimazole 0.05%- 1% topical cream) 1 application Topical Two (2) times a day Rash for 2 weeks then take 1 week off, may repeat if needed Unchanged empagliflozin (Jardiance 10 mg oral tablet) 1 tab(s) by mouth Once a day (in the morning) Duration: 30 Days Unchanged famotidine (famotidine 20 mg oral tablet) See instructions 1 tab(s) Oral BID as needed for heart burn Unchanged furosemide (Lasix 40 mg oral tablet) 1 tab(s) by mouth Two (2) times a day Duration: 30 Days Unchanged metoprolol (metoprolol tartrate 25 mg oral tablet) 1 tab(s) by mouth Two (2) times a day Unchanged ondansetron (Zofran 4 mg oral tablet) 1 tab(s) by mouth Every 6 hours as needed for Nausea/Vomiting Unchanged oxyCODONE (oxyCODONE 5 mg oral tablet ( IMMEDIATE release )) 1 tab(s) by mouth Every 8 hours as needed for for pain Renal cancer Unchanged riociguat (Adempas 1 mg oral tablet) 1 tab(s) by mouth Three (3) times a day Unchanged senna (senna (sennosides) 8.6 mg oral tablet) 2 tab(s) by mouth Two (2) times a day as needed for as needed for constipation Unchanged spironolactone (Aldactone 25 mg oral tablet) 1 tab(s) by mouth Once a day Take with food Unchanged warfarin (warfarin 2 mg oral tablet) 1 tab(s) by mouth Once a day Digitally Signed by LIAN FUNG MD on 03/04/2024 05:39 PM [id number] Summary of episode note LYNDSAY LOPEZ :1980 Visit Date:03/04/2024 Your Visit Summary Your Diagnosis Metastatic renal cell carcinoma. S/P Left cytoreductive nephrectomy 08/14/20. Final path - ccRCC withsarcomatoid features. Metastatic renal cell carcinoma. S/P Left cytoreductive nephrectomy 08/14/20. Final path - ccRCC withsarcomatoid features. 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 Secondary malignant neoplasm of bone (disorder) Active Tests Performed .Auto Differential .Estimated Glomerular Filtration Rate .Neutro Absolute CBC CMP Cortisol Level Free T3 Free T4 LDH TSH Your Care Team Attending Physician - BHAVIK TRIANA MD Primary Care Physician - PROSPER MANJARREZ DO Vitals Temperature (Oral) 98.2 F (36.8 C) Heart Rate 70 Blood Pressure 120/62 Height 67.91 in (172.5 cm) Weight 298.56 lb (135.4 kg) BMI 45.5 What to do next Instructions From Your Doctor You have received the following therapy today: Chemotherapy/Immunotherapy Call your physician if any of the following problems occur: Nausea/Vomiting Mouth Sores Diarrhea Fever Prolonged bleeding or easy bruising Pain or discomfort at the injection site Scheduled Follow-Up Appointments Appointment Type When With Where Contact Information StatusCT Femur w/o Contrast Right 03/04/2024 03:30 PM EST [facility] [phone] Confirmed PC Nurse 03/27/2024 10:[address] [address] Confirmed HEM ONC OV Follow Up w/Active Treatment 04/02/2024 01:00 PM BHAVIK SWAN MD [facility] Confirmed PC OV 05/29/2024 02:00 PM EDT PROSPER MANJARREZ DO [address] [address] Confirmed Medications What How Much When Why Instructions Changed linezolid (linezolid 600 mg oral tablet) by mouth Every 12 hours Changed linezolid (linezolid 600 mg oral tablet) 1 tab(s) by mouth Every 12 hours Abscess of leg Duration: 10 Days Unchanged amiodarone (amiodarone 200 mg oral tablet) 1 tab(s) by mouth Once a day Unchanged betamethasone-clotrimazole topical (betamethasone-clotrimazole 0.05%- 1% topical cream) 1 application Topical Two (2) times a day Rash for 2 weeks then take 1 week off, may repeat if needed Unchanged empagliflozin (Jardiance 10 mg oral tablet) 1 tab(s) by mouth Once a day (in the morning) Duration: 30 Days Unchanged famotidine (famotidine 20 mg oral tablet) See instructions 1 tab(s) Oral BID as needed for heart burn Unchanged furosemide (Lasix 40 mg oral tablet) 1 tab(s) by mouth Two (2) times a day Duration: 30 Days Unchanged metoprolol (metoprolol tartrate 25 mg oral tablet) 1 tab(s) by mouth Two (2) times a day Unchanged ondansetron (Zofran 4 mg oral tablet) 1 tab(s) by mouth Every 6 hours as needed for Nausea/Vomiting Unchanged oxyCODONE (oxyCODONE 5 mg oral tablet ( IMMEDIATE release )) 1 tab(s) by mouth Every 8 hours as needed for for pain Renal cancer Unchanged riociguat (Adempas 1 mg oral tablet) 1 tab(s) by mouth Three (3) times a day Unchanged senna (senna (sennosides) 8.6 mg oral tablet) 2 tab(s) by mouth Two (2) times a day as needed for as needed for constipation Unchanged spironolactone (Aldactone 25 mg oral tablet) 1 tab(s) by mouth Once a day Take with food Unchanged warfarin (warfarin 2 mg oral tablet) 1 tab(s) by mouth Once a day Test Results .Auto Differential (03/04/2024) Neutrophil % - 65.9 % Lymphocyte % - 20.8 % Monocyte % - 5.9 % Eosinophil % - 6.5 % Basophil % - 0.9 % Lymphocyte, Absolute - 1.6 10^3/mcL Monocyte, Absolute - 0.5 10^3/mcL Eosinophil, Absolute - 0.510^3/mcL Basophil, Absolute - 0.1 10^3/mcL .Estimated Glomerular Filtration Rate (03/04/2024) GFR Non- - 49 ml/min/1.73sqm GFR - 59 ml/min/1.73sqm .Neutro Absolute (03/04/2024) Neutrophil, Absolute - 5.1 10^3/mcL CBC (03/04/2024) WBC - 7.8 10^3/mcL RBC - 4.58 10^6/mcL Hgb - 14.0 G/dL Hct - 41.7 % MCV - 91.2 fL MCH - 30.5 pg MCHC - 33.5 G/dL RDW - 14.7 % Platelet - 147 10^3/mcL MPV - 7.0 fL CMP (03/04/2024) Glucose Level - 144 mg/dL Sodium Level - 142 mEq/L Potassium Level - 3.6 mEq/L Chloride - 104 mEq/LCO2 - 29 mEq/L Electrolyte Balance - 9.0 mEq/L BUN - 26.0 mg/dL Creatinine Lvl (s) - 1.55 mg/dL BUN/Creatinine Ratio - 16.8 ratio Calcium Lvl - 9.3 mg/dL Total Protein - 7.3 G/dL Albumin Level - 3.4 G/dL Globulin - 3.9 G/dL A/G Ratio - 0.9 ratio Bili Total - 0.40 mg/dL Alk Phos - 98 U/L AST/SGOT - 13 U/L ALT/SGPT - 17 U/L Cortisol Level (03/04/2024) Cortisol Level - 17.4 mcg/dL Free T3 (03/04/2024) Free T3 - 3.21 pg/mL Free T4 (03/04/2024) Free T4 - 1.35 ng/dL LDH (03/04/2024) LDH - 145 U/L TSH (03/04/2024) TSH - 1.424 mIU/mL Allergies penicillin Swelling Additional Information VACCINATE! IT SAVES LIVES! Members of the community who have not yet received the COVID-19 vaccine and would like to receive it can visit one of [facility] vaccine clinics. There are many vaccine clinic locations within the [facility]. For locations and available times, please visit [email or web address] It is important to note that some COVID mobile vaccine clinics are held outdoors and may be canceled in rainy or stormy conditions. To learn more about pediatric vaccinations (ages 5-11), we invite you to visit the [facility] webpage. [email or web address] learn more about the COVID-19 vaccine, we invite you to visit the CDC website for a list of frequently asked questions. https://www.cdc.gov/coronavirus/2019-ncov/vaccines/faq.html [facility] Patient Portal Access Instructions: Stay connected with your healthcare team and access your personal medical information anytime with the [facility] Patient Portal.If you would like a full copy of your medical records, please contact the [facility] Medical Records Department, Monday through Monday between 8a.m. and 4:30p.m. Please follow the directions below to access the portal: 1.Access the email account you provided upon registration to the hospital.2.Look for an invitation email from [facility].3.Open the email and access the invitation link: Accept Invitation to [facility]4.Fill in the required delaney to create your account. Sign into [email or web address] with your username and password that you created in the above steps to stay up to date. You can then view a summary of results, a summary of your visits, and the ability to download your summaries to your computer or send the information securely to a physician. Remember that your healthcare information is confidential, so carefully consider who you will allow to register on the [facility] Patient Portal for access to your information. You can also access the [facility] Patient Portal on the [employer] julia. Simply click on "Health Records" under "HealthDaEyegroove" and then click on the [facility] logo. HOW TO SAFELY DISPOSE OF PRESCRIPTION MEDICATIONS Please use one of the following methods to safely dispose of your unused medications. 1.Use a drug disposal kit: the drug disposal pouch allows you to safely discard your old and unuseddrugs. Ask your nurse to give you one when you are discharged.2.Visit a local take-back location: Many local pharmacies and police departments have programs that collect old and unwanted prescriptiondrugs. Call your local pharmacy or go to http://Huan Xiong.Oddslife/2Z9Mn1l to find one close to you.3.Make use of household items: Use cat litter or old coffee grounds to dispose medications if other options arenot available. Mix your drugs with these household products, seal them in an airtight container andthrow it into the garbage. Call [facility]: [phone] to be sure your drugs can be disposed of in this way. Some medicines may require a different approach.4.Never flush your medications down the toilet. IF YOU HAVE BEEN PRESCRIBED AN OPIOID FOR PAIN If you have been prescribed an opioid (such as hydrocodone, oxycodone or morphine), it is critical to understand the possible side effects and risks of opioid pain medications. Even when taken as directed, opioids can have several side effects including: Tolerance, meaning you might need to take more of a medication for the same pain relief. Nausea, vomiting and/or constipation. Sleepiness, dizziness, dry mouth, confusion, depression or itching. Physical dependence, meaning you have withdrawal symptoms when a medication is stopped, can develop within a few days. KNOW YOUR RESPONSIBILITIES It is important to know exactly how much and how often to take the opioid pain medications you are prescribed. Never take opioids in higher amounts or more often than prescribed. Do not combine opioids with alcohol or other drugs that cause drowsiness, such as benzodiazepines, also known as benzos, including diazepam and alprazolam, muscle relaxants or sleep aids. Never sell or share prescription opioids. This is illegal. Store opioids in a secure place and out of reach of others (including children, family, friends and visitors). The last page of this document has been signed and retained as a CHART COPY. Signatures Patient Education Materials Medication Leaflets My discharge plan and instructions have been reviewed and explained to me and I,LYNDSAY LOPEZ understand my current condition and have read and understand these discharge instructions. I have received a written copy of the plan/instructions. If I have questions, I am aware that I should contact my doctor. Patient/Record Keeper Signature: Date/Time: Relationship to Patient: Witness Name/Signature: [id number] Summary of episode note LYNDSAY LOPEZ :1980 Visit Date:02/05/2024 Your Visit Summary Your Diagnosis Metastatic renal cell carcinoma. S/P Left cytoreductive nephrectomy 08/14/20. Final path - ccRCC withsarcomatoid features. Metastatic renal cell carcinoma. S/P Left cytoreductive nephrectomy 08/14/20. Final path - ccRCC withsarcomatoid features. Tests Performed .Auto Differential .Estimated Glomerular Filtration Rate .Neutro Absolute CBC CMP Cortisol Level Free T3 Free T4 LDH TSH Your Care Team Attending Physician - EZEQUIEL LEAL Primary Care Physician - PROSPER MANJARREZ DO Vitals Temperature (Oral) 97.5 F (36.4 C) Heart Rate 65 Blood Pressure 118/65 Height 67.99 in (172.7 cm) Weight 307.38 lb (139.4 kg) BMI 46.74 What to do next Instructions From Your Doctor You have received the following therapy today: Chemotherapy/Immunotherapy Call your physician if any of the following problems occur: Nausea/Vomiting Mouth Sores Diarrhea Fever Prolonged bleeding or easy bruising Pain or discomfort at the injection site Scheduled Follow-Up Appointments Appointment Type When With Where Contact Information StatusPC Nurse 02/28/2024 10:45 AM EST [facility] [address] [id number] Confirmed INF/OSP Labwork 03/04/2024 12:15 PM EST Infusion Therapy Confirmed HEM ONC OV Follow Up w/Active Treatment 03/04/2024 01:00 PM EST EZEQUIEL LEAL [facility] Confirmed INF Chemo: Infusion 120 min (2 hours) 03/04/2024 01:30 PM EST Infusion Therapy Confirmed PALL OV Follow Up 03/14/2024 11:30 AM EST LIAN FUNG MD Palliative Care Confirmed Medications What How Much When Why Instructions Unchanged amiodarone (amiodarone 200 mg oral tablet) 1 tab(s) by mouth Once a day Unchanged betamethasone-clotrimazole topical (betamethasone-clotrimazole 0.05%- 1% topical cream) 1 application Topical Two (2) times a day Rash for 2 weeks then take 1 week off, may repeat if needed Unchanged empagliflozin (Jardiance 10 mg oral tablet) 1 tab(s) by mouth Once a day (in the morning) Duration: 30 Days Unchanged famotidine (famotidine 20 mg oral tablet) See instructions 1 tab(s) Oral BID as needed for heart burn Unchanged furosemide (Lasix 40 mg oral tablet) 1 tab(s) by mouth Two (2) times a day Duration: 30 Days Unchanged metoprolol (metoprolol tartrate 25 mg oral tablet) 1 tab(s) by mouth Two (2) times a day Unchanged ondansetron (Zofran 4 mg oral tablet) 1 tab(s) by mouth Every 6 hours as needed for Nausea/Vomiting Unchanged oxyCODONE (oxyCODONE 5 mg oral tablet ( IMMEDIATE release )) 1 tab(s) by mouth Every 8 hours as needed for for pain Renal cancer Unchanged riociguat (Adempas 1 mg oral tablet) 1 tab(s) by mouth Three (3) times a day Unchanged senna (senna (sennosides) 8.6 mg oral tablet) 2 tab(s) by mouth Two (2) times a day as needed for as needed for constipation Unchanged spironolactone (Aldactone 25 mg oral tablet) 1 tab(s) by mouth Once a day Take with food Unchanged warfarin (warfarin 2 mg oral tablet) 1 tab(s) by mouth Once a day Test Results .Auto Differential (02/05/2024) Neutrophil % - 67.6 % Lymphocyte % - 16.7 % Monocyte % - 8.2 % Eosinophil % - 6.7 % Basophil % - 0.8 % Lymphocyte, Absolute - 1.8 10^3/mcL Monocyte, Absolute - 0.9 10^3/mcL Eosinophil, Absolute - 0.710^3/mcL Basophil, Absolute - 0.1 10^3/mcL .Estimated Glomerular Filtration Rate (02/05/2024) GFR Non- - 40 ml/min/1.73sqm GFR - 48 ml/min/1.73sqm .Neutro Absolute (02/05/2024) Neutrophil, Absolute - 7.3 10^3/mcL CBC (02/05/2024) WBC - 10.8 10^3/mcL RBC - 4.89 10^6/mcL Hgb - 15.3 G/dL Hct - 45.5 % MCV - 93.0 fL MCH - 31.3 pg MCHC - 33.7 G/dL RDW - 15.5 % Platelet - 308 10^3/mcL MPV - 7.1 fL CMP (02/05/2024) Glucose Level - 105 mg/dL Sodium Level - 136 mEq/L Potassium Level - 3.7 mEq/L Chloride - 104 mEq/LCO2 - 27 mEq/L Electrolyte Balance - 5.0 mEq/L BUN - 27.0 mg/dL Creatinine Lvl (s) - 1.85 mg/dL BUN/Creatinine Ratio - 14.6 ratio Calcium Lvl - 9.3 mg/dL Total Protein - 7.6 G/dL Albumin Level - 3.6 G/dL Globulin - 4.0 G/dL A/G Ratio - 0.9 ratio Bili Total - 0.50 mg/dL Alk Phos - 102 U/L AST/SGOT -19 U/L ALT/SGPT - 17 U/L Cortisol Level (02/05/2024) Cortisol Level - 18.8 mcg/dL Free T3 (02/05/2024) Free T3 - 3.95 pg/mL Free T4 (02/05/2024) Free T4 - 1.24 ng/dL LDH (02/05/2024) LDH - 180 U/L TSH (02/05/2024) TSH - 2.225 mIU/mL Allergies penicillin Swelling Additional Information VACCINATE! IT SAVES LIVES! Members of the community who have not yet received the COVID-19 vaccine and would like to receive it can visit one of [facility] vaccine clinics. There are many vaccine clinic locations within the [facility]. For locations and available times, please visit [email or web address] It is important to note that some COVID mobile vaccine clinics are held outdoors and may be canceled in rainy or stormy conditions. To learn more about pediatric vaccinations (ages 5-11), we invite you to visit the [facility] webpage. [email or web address]/[email or web address] [email or web address] learn more about the COVID-19 vaccine, we invite you to visit the CDC website for a list of frequently asked questions. https://www.cdc.gov/coronavirus/2019-ncov/vaccines/faq.html [facility] Patient Portal Access Instructions: Stay connected with your healthcare team and access your personal medical information anytime with the [facility] Patient Portal.If you would like a full copy of your medical records, please contact the [facility] Medical Records Department, Monday through Monday between 8a.m. and 4:30p.m. Please follow the directions below to access the portal: 1.Access the email account you provided upon registration to the hospital.2.Look for an invitation email from [facility].3.Open the email and access the invitation link: Accept Invitation to [facility]4.Fill in the required delaney to create your account. Sign into [email or web address] with your username and password that you created in the above steps to stay up to date. You can then view a summary of results, a summary of your visits, and the ability to download your summaries to your computer or send the information securely to a physician. Remember that your healthcare information is confidential, so carefully consider who you will allow to register on the [facility] Patient Portal for access to your information. You can also access the [facility] Patient Portal on the [employer]. Simply click on "Health Records" under "HealthData" and then click on the [employer] logo. HOW TO SAFELY DISPOSE OF PRESCRIPTION MEDICATIONS Please use one of the following methods to safely dispose of your unused medications. 1.Use a drug disposal kit: the drug disposal pouch allows you to safely discard your old and unuseddrugs. Ask your nurse to give you one when you are discharged.2.Visit a local take-back location: Many local pharmacies and police departments have programs that collect old and unwanted prescriptiondrugs. Call your local pharmacy or go to http://Huan Xiong.Oddslife/1J4El4d to find one close to you.3.Make use of household items: Use cat litter or old coffee grounds to dispose medications if other options arenot available. Mix your drugs with these household products, seal them in an airtight container andthrow it into the garbage. Call [facility]: [phone] to be sure your drugs can be disposed of in this way. Some medicines may require a different approach.4.Never flush your medications down the toilet. IF YOU HAVE BEEN PRESCRIBED AN OPIOID FOR PAIN If you have been prescribed an opioid (such as hydrocodone, oxycodone or morphine), it is critical to understand the possible side effects and risks of opioid pain medications. Even when taken as directed, opioids can have several side effects including: Tolerance, meaning you might need to take more of a medication for the same pain relief. Nausea, vomiting and/or constipation. Sleepiness, dizziness, dry mouth, confusion, depression or itching. Physical dependence, meaning you have withdrawal symptoms when a medication is stopped, can develop within a few days. KNOW YOUR RESPONSIBILITIES It is important to know exactly how much and how often to take the opioid pain medications you are prescribed. Never take opioids in higher amounts or more often than prescribed. Do not combine opioids with alcohol or other drugs that cause drowsiness, such as benzodiazepines, also known as benzos, including diazepam and alprazolam, muscle relaxants or sleep aids. Never sell or share prescription opioids. This is illegal. Store opioids in a secure place and out of reach of others (including children, family, friends and visitors). The last page of this document has been signed and retained as a CHART COPY. Signatures Patient Education Materials Medication Leaflets My discharge plan and instructions have been reviewed and explained to me and IJESSICA DAVID D understand my current condition and have read and understand these discharge instructions. I have received a written copy of the plan/instructions. If I have questions, I am aware that I should contact my doctor. Patient/Record Keeper Signature: Date/Time: Relationship to Patient: Witness Name/Signature: Date/Time: [id number] Note. MICRO - Microbiology PROCEDURE: Culture Wound Aerobic with Gram Stain [*1] SOURCE: Abscess BODY SITE: Thigh COLLECTED DATE/TIME: 01/31/2024 15:17 EST RECEIVED DATE/TIME: 01/31/2024 19:51 EST START DATE/TIME: 01/31/2024 19:51 EST FREE TEXT SOURCE: right posterior thigh FINAL REPORTS Final Report [] Verified Date/Time/Personnel: 02/03/2024 08:33 EST Few Enterococcus faecalis Heavy normal skin monie present. Sensitivity testing not indicated. PRELIMINARY REPORTS Preliminary Report [] Verified Date/Time/Personnel: 02/02/2024 11:56 EST Few Enterococcus faecalis KEN to follow Heavy normal skin monie present. Sensitivity testing not indicated. Preliminary Report [] Verified Date/Time/Personnel: 02/01/2024 11:18 EST Culture results pending. STAINS GS [] Verified Date/Time/Personnel: 01/31/2024 21:11 EST 1+ Polymorphonuclear cells Rare Gram Positive Rods SUSCEPTIBILITY RESULTS Enterococcus faecalis Antibiotic KEN Dilut KEN Inter Ampicillin <=2 Susceptible Ciprofloxacin <=1 Susceptible Gentamicin >500 Resistant synergy ID Panel Not Not Applicable Applicable Levofloxacin <=1 Susceptible Penicillin 2 Susceptible Vancomycin 1 Susceptible Performing Locations *1: This test was performed at: [facility], [address] [place] [address], [id number] , [facility]12-12-2024 Hospital Discharge instructions Patient Education 01/25/2024 01:22:57 Abscess, Incision And Drainage Abscess (Incision & Drainage) An abscess is sometimes called a boil. It happens when bacteria get trapped under the skin and start to grow. Pus forms inside the abscess as the body responds to the bacteria. An abscess can happen with an insect bite, ingrown hair, blocked oil gland, pimple, cyst, or puncture wound. Your healthcare provider has drained the pus from your abscess. If the abscess pocket was large, your healthcare provider may have put in gauze packing. Your provider will need to remove it on your next visit. He or she may also replace it at that time. You may not need antibiotics to treat a simple abscess, unless the infection is spreading into the skin around the wound (cellulitis). The wound will take about 1 to 2 weeks to heal, depending on the size of the abscess. Healthy tissue will grow from the bottom and sides of the opening until it seals over. Home care These tips can help your wound heal: The wound may drain for the first 2 days. Cover the wound with a clean dry dressing. Change the dressing if it becomes soaked with blood or pus. If a gauze packing was placed inside the abscess pocket, you may be told to remove it yourself. Youmay do this in the shower. Once the packing is removed, you should wash the area in the shower, or clean the area as directed by your provider. Continue to do this until the skin opening has closed. Make sure you wash your hands after changing the packing or cleaning the wound. If you were prescribed antibiotics, take them as directed until they are all gone. You may use acetaminophen or ibuprofen to control pain, unless another pain medicine was prescribed. If you have liver disease or ever had a stomach ulcer, talk with your doctor before using these medicines. Follow-up care Follow up with your healthcare provider, or as advised. If a gauze packing was put in your wound, it should be removed in 1 to 2 days. Check your wound every day for any signs that the infection is getting worse. The signs are listed below. When to seek medical advice Call your healthcare provider right away if any of these occur: Increasing redness or swelling Red streaks in the skin leading away from the wound Increasing local pain or swelling Continued pus draining from the wound 2 days after treatment Fever of 100.4 F (38 C) or higher, or as directed by your healthcare provider Boil returns when you are at home [phone] [employer]. [address] [place] [address]. All rights reserved. This information is not intended as a substitute for professional medical care. Always follow yourhealthcare professional's instructions. Follow Up Care 01/25/2024 00:51:29 With:PROSPER MANJARREZ DO Address: [place] [phone] When:2-4 days [facility] 12-12-2024 Note Discharge Instructions Thank you for allowing [facility] to assist you with your healthcare needs. The following is importantdischarge information regarding your hospital visit. Diagnosis from Today's Visit Abscess What to Do Next Instructions from Your Care Team No qualifying data available. Post Acute Orders No qualifying data available. You Need to Schedule the Following Appointments Follow Up with PROSPER MANJARREZ DO When:Within 2-4 days Where:[place] [address]- [phone] Allergies penicillin Swelling Medications Please ask your primary doctor or pharmacist before taking any other medication not listed, including over the counter drugs, herbal medications, vitamins and or supplements as they may interact withyour home medications. What How Much When Why Instructions Last Dose New cephalexin (cephalexin 500 mg oral capsule) 1 cap by mouth Four (4) times a day Duration: 10 Days Printed Prescription New sulfamethoxazole-trimethoprim (Bactrim DS 800 mg-160 mg oral tablet) 1 tab(s) by mouth Two (2) times a day Duration: 10 Days Printed Prescription Unchanged amiodarone (amiodarone 200 mg oral tablet) 1 tab(s) by mouth Once a day Unchanged betamethasone-clotrimazole topical (betamethasone-clotrimazole 0.05%- 1% topical cream) 1 application Topical Two (2) times a day Rash for 2 weeks then take 1 week off, may repeat if needed Unchanged empagliflozin (Jardiance 10 mg oral tablet) 1 tab(s) by mouth Once a day (in the morning) Duration: 30 Days Unchanged famotidine (famotidine 20 mg oral tablet) See instructions 1 tab(s) Oral BID as needed for heart burn Unchanged furosemide (Lasix 40 mg oral tablet) 1 tab(s) by mouth Two (2) times a day Duration: 30 Days Unchanged metoprolol (metoprolol tartrate 25 mg oral tablet) 1 tab(s) by mouth Two (2) times a day Unchanged ondansetron (Zofran 4 mg oral tablet) 1 tab(s) by mouth Every 6 hours as needed for Nausea/Vomiting Unchanged oxyCODONE (oxyCODONE 5 mg oral tablet ( IMMEDIATE release )) 1 tab(s) by mouth Every 8 hours as needed for for pain Renal cancer Unchanged riociguat (Adempas 1 mg oral tablet) 1 tab(s) by mouth Three (3) times a day Unchanged senna (senna (sennosides) 8.6 mg oral tablet) 2 tab(s) by mouth Two (2) times a day as needed for as needed for constipation Unchanged spironolactone (Aldactone 25 mg oral tablet) 1 tab(s) by mouth Once a day Take with food Unchanged warfarin (warfarin 2 mg oral tablet) 1 tab(s) by mouth Once a day Please take this list to your next doctor s visit. Bring all medications you take, including over the counter medications, herbals and other supplements with you to your doctor s visit. Patients and families are reminded to discard old lists and to update any records with all medication providers or retail pharmacies. Medication Leaflets sulfamethoxazole and trimethoprim (oral/injection) (SUL fa meth OX a zole and trye METH oh prim) Bactrim, Bactrim DS, Sulfatrim Pediatric What is the most important information I should know about sulfamethoxazole and trimethoprim? Use only as directed. Tell your doctor if you use other medicines or have other medical conditions or allergies. What is sulfamethoxazole and trimethoprim? Sulfamethoxazole and trimethoprim is a combination antibiotic used to treat ear infections, urinarytract infections, bronchitis, traveler's diarrhea, shigellosis, and Pneumocystis jiroveci pneumonia. Sulfamethoxazole and trimethoprim may also be used for purposes not listed in this medication guide. What should I discuss with my healthcare provider before using sulfamethoxazole and trimethoprim? You should not use this medicine if you are allergic to sulfamethoxazole or trimethoprim, or if youhave: severe liver disease; kidney disease that is not being treated or monitored; anemia (low red blood cells) caused by folic acid deficiency; a history of low blood platelets after taking trimethoprim or any sulfa drug; or if you take dofetilide. May cause defects. Do not use if you are . Tell your doctor if you become . Do not breastfeed. This medicine should not be given to a child younger than 2 months old. Tell your doctor if you have ever had: kidney or liver disease; a folate (folic acid) deficiency; asthma or severe allergies; HIV or AIDS; a thyroid disorder; malnourishment; alcoholism; an electrolyte imbalance (such as low blood sodium or high potassium); porphyria, or yalhawb-9-jtvcogxjr dehydrogenase (G6PD) deficiency; or if you use a blood thinner (such as warfarin) and you have routine 'INR' or prothrombin time tests. How should I use sulfamethoxazole and trimethoprim? Follow all directions on your prescription label and read all medication guides or instruction sheets. Use the medicine exactly as directed. Sulfamethoxazole and trimethoprim oral is taken by mouth. Shake the oral suspension (liquid). Measure a dose with the supplied measuring device (not a kitchen spoon). Sulfamethoxazole and trimethoprim injection is given in a vein. Be sure you understand how to properly mix this medicine with a liquid (diluent) and how to store the mixture. Ask your doctor or pharmacist if you don't understand how to use an injection. Prepare an injection only when you are ready to give it. Call your pharmacist if the medicine lookscloudy, has changed colors, or has particles in it. Mixed medicine must be used within 2 to 6 hours depending on the amount of diluent in the mixture. Follow your doctor's instructions. Do not refrigerate mixed medicine. Do not reuse a needle or syringe. Place them in a puncture-proof 'sharps' container and dispose of it following state or local laws. Keep out of the reach of children and pets. Drink plenty of fluids to prevent kidney stones. Antibiotic medicines can cause diarrhea. Tell your doctor if you have diarrhea that is watery or bloody. Keep using this medicine even if your symptoms quickly improve. Skipping doses could make your infection resistant to medication. Sulfamethoxazole and trimethoprim will not treat a viral infection (flu or a common cold). You may need blood and urine tests, and this medicine may be stopped based on the results. Store at room temperature away from moisture, heat, and light. Do not refrigerate. What happens if I miss a dose? Use the medicine as soon as you can, but skip the missed dose if it is almost time for your next dose. Do not use two doses at one time. What happens if I overdose? Seek emergency medical attention or call the Poison Help line at . Overdose symptoms may include loss of appetite, vomiting, fever, blood in your urine, yellowing of your skin or eyes, confusion, or loss of consciousness. What should I avoid while using sulfamethoxazole and trimethoprim? If you use the injection form of this medicine, do not eat or drink anything that contains propylene glycol (an ingredient in many processed foods, soft drinks, and medicines). Dangerous effects could occur. Sulfamethoxazole and trimethoprim could make you sunburn more easily. Avoid sunlight or tanning beds. Wear protective clothing and use sunscreen (SPF 30 or higher) when you are outdoors. What are the possible side effects of sulfamethoxazole and trimethoprim? Get emergency medical help if you have signs of an allergic reaction (hives, cough, chest pain, shortness of breath, swelling in your face or throat) or a severe skin reaction (fever, sore throat, burning eyes, skin pain, red or purple skin rash with blistering and peeling). Seek medical treatment if you have a serious drug reaction that can affect many parts of your body.Symptoms may include: skin rash, fever, swollen glands, joint pain, muscle aches, severe weakness, pale skin, unusual bruising, or yellowing of your skin or eyes. Call your doctor at once if you have: severe stomach pain, diarrhea that is watery or bloody (even if it occurs months after your last dose); any skin rash, no matter how mild; yellowing of your skin or eyes; a seizure; new or unusual joint pain; increased or decreased urination; swelling, bruising, or irritation around the IV needle; increased thirst, dry mouth, fruity breath odor; new or worsening cough, fever, trouble breathing; high blood potassium--nausea, weakness, tingly feeling, chest pain, irregular heartbeats, loss of movement; low blood sodium--headache, confusion, problems with thinking or memory, weakness, feeling unsteady; or low blood cell counts--fever, chills, mouth sores, skin sores, easy bruising, unusual bleeding, pale skin, cold hands and feet, feeling light-headed or short of breath. Common side effects may include: nausea, vomiting, loss of appetite; or skin rash. This is not a complete list of side effects and others may occur. Call your doctor for medical advice about side effects. You may report side effects to FDA at 4-321-QUX-7859. What other drugs will affect sulfamethoxazole and trimethoprim? You may need more frequent check-ups or medical tests if you also use medicine to treat depression,diabetes, seizures, or HIV. Tell your doctor about all your current medicines. Many drugs can affect sulfamethoxazole and trimethoprim, especially: amantadine, digoxin, cyclosporine, indomethacin, leucovorin, methotrexate, procainamide, pyrimethamine; an 'MEGAN inhibitor' heart or blood presure medication (benazepril, enalapril, lisinopril, quinapril,ramipril, and others); or a diuretic or 'water pill'. This list is not complete and many other drugs may affect sulfamethoxazole and trimethoprim. This includes prescription and qcev-ldh-busgkgn medicines, vitamins, and herbal products. Not all possibledrug interactions are listed here. Where can I get more information? Your pharmacist can provide more information about sulfamethoxazole and trimethoprim. Remember, keep this and all other medicines out of the reach of children, never share your medicines with others, and use this medication only for the indication prescribed. Every effort has been made to ensure that the information provided by [employer] is accurate, up-to-date, and complete, but no guarantee is made to that effect. Drug information contained herein may be time sensitive. [employer] information has been compiled for use by healthcare practitioners and consumers in the [place] and therefore [employer] does not warrant that uses outside of the [place] are appropriate, unless specifically indicated otherwise. [employer] drug information does not endorse drugs, diagnose patients or recommend therapy. [employer] drug information isan informational resource designed to assist licensed healthcare practitioners in caring for their p atients and/or to serve consumers viewing this service as a supplement to, and not a substitute for, the expertise, skill, knowledge and judgment of healthcare practitioners. The absence of a warningfor a given drug or drug combination in no way should be construed to indicate that the drug or drug combination is safe, effective or appropriate for any given patient. [employer] does not assume any responsibility for any aspect of healthcare administered with the aid of information [employer] provides. The information contained herein is not intended to cover all possible uses, directions, precautions, warnings, drug interactions, allergic reactions, or adverse effects. If you have questions about the drugs you are taking, check with your doctor, nurse or pharmacist. Copyright 4372-0271 [employer]. Version: 13.. Revision Date: 09/15/2022. cephalexin (sef a DAXA in) What is the most important information I should know about cephalexin? You should not use this medicine if you are allergic to cephalexin or to similar antibiotics, such as Ceftin, Cefzil, Omnicef, and others. Tell your doctor if you are allergic to any drugs, especially penicillins or other antibiotics. What is cephalexin? Cephalexin is a cephalosporin (SEF a low spor in) antibiotic that is used to treat bacterial infections of the lungs, ear, skin, bones, bladder, and kidneys. Cephalexin is used to treat infections in adults and children who are at least 1 year old. Cephalexin may also be used for purposes not listed in this medication guide. What should I discuss with my healthcare provider before taking cephalexin? You should not use this medicine if you are allergic to cephalexin or any other cephalosporin antibiotic (cefdinir, cefadroxil, cefoxitin, cefprozil, ceftriaxone, cefuroxime, Omnicef, and others). Tell your doctor if you have ever had: an allergy to any drug (especially penicillin); liver or kidney disease; or intestinal problems, such as colitis. The liquid form of cephalexin may contain sugar. This may affect you if you have diabetes. Tell your doctor if you are or breast-feeding. How should I take cephalexin? Follow all directions on your prescription label and read all medication guides or instruction sheets. Use the medicine exactly as directed. Do not use cephalexin to treat any condition that has not been checked by your doctor. Measure liquid medicine carefully. Use the dosing syringe provided, or use a medicine dose-measuring device (not a kitchen spoon). Use this medicine for the full prescribed length of time, even if your symptoms quickly improve. Skipping doses can increase your risk of infection that is resistant to medication. Cephalexin will not treat a viral infection such as the flu or a common cold. Do not share cephalexin with another person, even if they have the same symptoms you have. This medicine can affect the results of certain medical tests. Tell any doctor who treats you that you are using cephalexin. Store the tablets and capsules at room temperature away from moisture, heat, and light. Store the liquid medicine in the refrigerator. Throw away any unused liquid after 14 days. What happens if I miss a dose? Take the medicine as soon as you can, but skip the missed dose if it is almost time for your next dose. Do not take two doses at one time. What happens if I overdose? Seek emergency medical attention or call the Poison Help line at . Overdose symptoms may include nausea, vomiting, stomach pain, diarrhea, and blood in your urine. What should I avoid while taking cephalexin? Antibiotic medicines can cause diarrhea, which may be a sign of a new infection. If you have diarrhea that is watery or bloody, call your doctor before using anti-diarrhea medicine. What are the possible side effects of cephalexin? Get emergency medical help if you have signs of an allergic reaction (hives, difficult breathing, swelling in your face or throat) or a severe skin reaction (fever, sore throat, burning eyes, skin pain, red or purple skin rash with blistering and peeling). Call your doctor at once if you have: severe stomach pain, diarrhea that is watery or bloody (even if it occurs months after your last dose); unusual tiredness, feeling light-headed or short of breath; easy bruising, unusual bleeding, purple or red spots under your skin; a seizure; pale skin, cold hands and feet; yellowed skin, dark colored urine; fever, weakness; or pain in your side or lower back, painful urination. Common side effects may include: diarrhea; nausea, vomiting; indigestion, stomach pain; or vaginal itching or discharge. This is not a complete list of side effects and others may occur. Call your doctor for medical advice about side effects. You may report side effects to FDA at 2-168-VPW-1548. What other drugs will affect cephalexin? Tell your doctor about all your other medicines, especially: metformin; or probenecid. This list is not complete. Other drugs may affect cephalexin, including prescription and cdpy-sas-chxffnd medicines, vitamins, and herbal products. Not all possible drug interactions are listed here. Where can I get more information? Your pharmacist can provide more information about cephalexin. Remember, keep this and all other medicines out of the reach of children, never share your medicines with others, and use this medication only for the indication prescribed. Every effort has been made to ensure that the information provided by [employer] is accurate, up-to-date, and complete, but no guarantee is made to that effect. Drug information contained herein may be time sensitive. [employer] information has been compiled for use by healthcare practitioners and consumers in the [place] and therefore [employer] does not warrant that uses outside of the [place] are appropriate, unless specifically indicated otherwise. [employer] drug information does not endorse drugs, diagnose patients or recommend therapy. [employer] drug information isan informational resource designed to assist licensed healthcare practitioners in caring for their p atients and/or to serve consumers viewing this service as a supplement to, and not a substitute for, the expertise, skill, knowledge and judgment of healthcare practitioners. The absence of a warningfor a given drug or drug combination in no way should be construed to indicate that the drug or drug combination is safe, effective or appropriate for any given patient. [facility] does not assume any responsibility for any aspect of healthcare administered with the aid of information [facility] provides. The information contained herein is not intended to cover all possible uses, directions, precautions, warnings, drug interactions, allergic reactions, or adverse effects. If you have questions about the drugs you are taking, check with your doctor, nurse or pharmacist. Copyright 2683-0355 [employer]. Version: 01.13. Revision Date: 09/14/2022. Education Materials Abscess (Incision & Drainage) An abscess is sometimes called a boil. It happens when bacteria get trapped under the skin and start to grow. Pus forms inside the abscess as the body responds to the bacteria. An abscess can happen with an insect bite, ingrown hair, blocked oil gland, pimple, cyst, or puncture wound. Your healthcare provider has drained the pus from your abscess. If the abscess pocket was large, your healthcare provider may have put in gauze packing. Your provider will need to remove it on your next visit. He or she may also replace it at that time. You may not need antibiotics to treat a simple abscess, unless the infection is spreading into the skin around the wound (cellulitis). The wound will take about 1 to 2 weeks to heal, depending on the size of the abscess. Healthy tissue will grow from the bottom and sides of the opening until it seals over. Home care These tips can help your wound heal: The wound may drain for the first 2 days. Cover the wound with a clean dry dressing. Change the dressing if it becomes soaked with blood or pus. If a gauze packing was placed inside the abscess pocket, you may be told to remove it yourself. Youmay do this in the shower. Once the packing is removed, you should wash the area in the shower, or clean the area as directed by your provider. Continue to do this until the skin opening has closed. Make sure you wash your hands after changing the packing or cleaning the wound. If you were prescribed antibiotics, take them as directed until they are all gone. You may use acetaminophen or ibuprofen to control pain, unless another pain medicine was prescribed. If you have liver disease or ever had a stomach ulcer, talk with your doctor before using these medicines. Follow-up care Follow up with your healthcare provider, or as advised. If a gauze packing was put in your wound, it should be removed in 1 to 2 days. Check your wound every day for any signs that the infection is getting worse. The signs are listed below. When to seek medical advice Call your healthcare provider right away if any of these occur: Increasing redness or swelling Red streaks in the skin leading away from the wound Increasing local pain or swelling Continued pus draining from the wound 2 days after treatment Fever of 100.4 F (38 C) or higher, or as directed by your healthcare provider Boil returns when you are at home 4459-2079 [employer]. [address] [place] [address], [place] [address]. All rights reserved. This information is not intended as a substitute for professional medical care. Always follow yourhealthcare professional's instructions. Additional Information VACCINATE! IT SAVES LIVES! Members of the community who have not yet received the COVID-19 vaccine and would like to receive it can visit one of [facility] vaccine clinics. There are many vaccine clinic locations within the [facility]. For locations and available times, please visit [email or web address] It is important to note that some COVID mobile vaccine clinics are held outdoors and may be canceled in rainy or stormy conditions. To learn more about pediatric vaccinations (ages 5-11), we invite you to visit the [facility] webpage. [email or web address]/[email or web address] [email or web address] learn more about the COVID-19 vaccine, we invite you to visit the CDC website for a list of frequently asked questions. https://www.cdc.gov/coronavirus/2019-ncov/vaccines/faq.html [facility] Patient [facility] Access Instructions: Stay connected with your healthcare team and access your personal medical information anytime with the [facility] Patient Portal. If you would like a full copy of your medical records please contact the [facility] Medical Records Department Monday through Monday between 8a.m. and 4:30p.m. Please follow the directions below to access the portal: 1.Access the email account you provided upon registration to the [facility].2.Look for an invitation email from [facility].3.Open the email and access the invitation link: Accept Invitation to [facility].Fill in the required delaney to create your account. Sign into [email or web address] with your username and password that you created in the above steps to stay up to date. You can then view a summary of results, a summary of your visits, and the ability to download your summaries to your computer or send the information securely to a physician. Remember that your healthcare information is confidential, so carefully consider who you will allow to register on the [facility] Patient Portal for access to your information. You can also access the [facility] Patient Portal on the [employer]. Simply click on "Health Records" under "HealthData" and then click on the [employer] logo. HOW TO SAFELY DISPOSE OF PRESCRIPTION MEDICATIONS Please use one of the following methods to safely dispose of your unused medications. 1.Use a drug disposal kit: the drug disposal pouch allows you to safely discard your old and unuseddrugs. Ask your nurse to give you one when you are discharged.2.Visit a local take-back location: Many local pharmacies and police departments have programs that collect old and unwanted prescriptiondrugs. Call your local pharmacy or go to http://Huan Xiong.Oddslife/1L3Vn1k to find one close to you.3.Make use of household items: Use cat litter or old coffee grounds to dispose medications if other options arenot available. Mix your drugs with these household products, seal them in an airtight container andthrow it into the garbage. Call [facility]: [phone] to be sure your drugs can be disposed of in this way. Some medicines may require a different approach.4.Never flush your medications down the toilet. IF YOU HAVE BEEN PRESCRIBED AN OPIOIDS FOR PAIN If you have been prescribed an opioid (such as hydrocodone, oxycodone or morphine), it is critical to understand the possible side effects and risks of opioid pain medications. Even when taken as directed, opioids can have several side effects including: Tolerance, meaning you might need to take more of a medication for the same pain relief. Nausea, vomiting and/or constipation. Sleepiness, dizziness, dry mouth, confusion, depression or itching. Physical dependence, meaning you have withdrawal symptoms when a medication is stopped ? this can develop within a few days. KNOW YOUR RESPONSIBILITIES It is important to know exactly how much and how often to take the opioid pain medications you are prescribed. Never take opioids in higher amounts or more often than prescribed. Do not combine opioids with alcohol or other drugs that cause drowsiness, such as benzodiazepines, also known as benzos,including diazepam and alprazolam, muscle relaxants or sleep aids. Never sell or share prescriptionopioids. This is illegal. Store opioids in a secure place and out of reach of others (including children, family, friends and visitors). The last page(s) of this document has been signed and retained as a CHART COPY Signatures Patient Education Materials Abscess, Incision And Drainage Medication Leaflets sulfamethoxazole and trimethoprim (oral/injection), cephalexin My discharge plan and instructions have been reviewed and explained to me and IJESSICA DAVID D understand my current condition and have read and understand these discharge instructions. I have received a written copy of the plan/instructions. If I have questions, I am aware that I should contact my doctor. Patient/Record Keeper Signature: Date/Time: Relationship to Patient: Witness Name/Signature: Date/Time: [facility]12-06-2024 Note ORIGINAL EXAMINATION: CT OF THE ABDOMEN AND PELVIS WITHOUT CONTRAST 01/19/2024 11:22 am TECHNIQUE: CT of the abdomen and pelvis was performed without the administration of intravenous contrast. Multiplanar reformatted images are provided for review. Automated exposure control, iterative reconstruction, and/or weight based adjustment of the mA/kV was utilized to reduce the radiation dose to as low as reasonably achievable. COMPARISON: CT abdomen and pelvis October 12, 2023 HISTORY: ORDERING SYSTEM PROVIDED HISTORY: Reason for Exam: hx [facility] FINDINGS: Note: Recist 1.1 is not applicable as disease is not "evaluable" without IV contrast. Same day CT chest is reported separately. Pathologic fracture of the T11 vertebral body is relatively unchanged. Other degenerative changes of the spine are noted. No acute osseous process. Stable small hepatic cysts. The spleen, pancreas, and adrenal glands are unremarkable. Status post left nephrectomy. There is no abnormal soft tissue at the resection bed. The right kidney is unremarkable. There is no intra-abdominal free air or fluid. There are no pathologically enlarged lymph nodes. The urinary bladder is decompressed limiting evaluation. There is a posterolateral left flank hernia which contains descending colon. No acute GI tract abnormality. No other contributory finding. IMPRESSION: No evidence for recurrent or new disease. I have personally reviewed the images of this examination and agree with the resident's findings and interpretation. Interpreted by: Rachell Dennis MD Preliminary Report By: Tanner Merrill Electronically signed By Rachell Dennis MD Dictated Date: 01/19/2024 11:45:41 AM Prelim Date: 01/19/2024 4:19:39 PM Sign Date: 01/19/2024 4:19:39 PM Ordering Provider: [facility]11-07-2024 Summary of episode note LYNDSAY LOPEZ :1980 Visit Date:12/21/2023 Your Visit Summary Your Diagnosis Metastatic renal cell carcinoma. S/P Left cytoreductive nephrectomy 08/14/20. Final path - ccRCC withsarcomatoid features. Metastatic renal cell carcinoma. S/P Left cytoreductive nephrectomy 08/14/20. Final path - ccRCC withsarcomatoid features. 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 Secondary malignant neoplasm of bone (disorder) Active Tests Performed .Auto Differential .Estimated Glomerular Filtration Rate .Neutro Absolute CBC CMP Cortisol Level Free T3 Free T4 LDH TSH Your Care Team Attending Physician - EZEQUIEL LEAL EKG MONITOR-WORD PROCESSING SPECIALIST Primary Care Physician - PROSPER MANJARREZ DO Vitals Temperature (Oral) 98.2 F (36.8 C) Heart Rate 66 Blood Pressure 118/65 Height 69.02 in (175.3 cm) Weight 307.38 lb (139.4 kg) BMI 45.36 What to do next Instructions From Your Doctor You have received the following therapy today: Chemotherapy/Immunotherapy Call your physician if any of the following problems occur: Nausea/Vomiting Mouth Sores Diarrhea Fever Prolonged bleeding or easy bruising Pain or discomfort at the injection site Scheduled Follow-Up Appointments Appointment Type When With Where Contact Information StatusCV OV CHF 12/27/2023 10:45 AM [facility] CVC Confirmed PC Nurse Protime 12/27/2023 02:15 PM [facility] [address] [place] [address] Confirmed yyCT ABD and Pelvis w/o Contrast 01/15/2024 10:00 AM [facility] [phone] Confirmed yyCT Chest w/o Contrast 01/15/2024 10:30 AM [facility] [phone] Confirmed HEM ONC OV Follow Up w/Active Treatment 01/25/2024 10:00 AM BHAVIK SWAN MD [facility] Confirmed Medications What How Much When Why Instructions Unchanged amiodarone (amiodarone 200 mg oral tablet) 1 tab(s) by mouth Once a day Unchanged betamethasone-clotrimazole topical (betamethasone-clotrimazole 0.05%- 1% topical cream) 1 application Topical Two (2) times a day Rash for 2 weeks then take 1 week off, may repeat if needed Unchanged empagliflozin (Jardiance 10 mg oral tablet) 1 tab(s) by mouth Once a day (in the morning) Duration: 30 Days Unchanged furosemide (Lasix 40 mg oral tablet) 1 tab(s) by mouth Two (2) times a day Duration: 30 Days Unchanged metoprolol (metoprolol tartrate 25 mg oral tablet) 1 tab(s) by mouth Two (2) times a day Unchanged ondansetron (Zofran 4 mg oral tablet) 1 tab(s) by mouth Every 6 hours as needed for Nausea/Vomiting Unchanged oxyCODONE (oxyCODONE 5 mg oral tablet ( IMMEDIATE release )) 1 tab(s) by mouth Every 8 hours as needed for for pain Renal cancer Unchanged riociguat (Adempas 1 mg oral tablet) 1 tab(s) by mouth Three (3) times a day Unchanged senna (senna (sennosides) 8.6 mg oral tablet) 2 tab(s) by mouth Two (2) times a day as needed for as needed for constipation Unchanged spironolactone (Aldactone 25 mg oral tablet) 1 tab(s) by mouth Once a day Take with food Unchanged warfarin (warfarin 2 mg oral tablet) 1 tab(s) by mouth Once a day Test Results .Auto Differential (12/21/2023) Neutrophil % - 74.2 % Lymphocyte % - 11.0 % Monocyte % - 8.6 % Eosinophil % - 5.4 % Basophil % - 0.8 % Lymphocyte, Absolute - 1.4 10^3/mcL Monocyte, Absolute - 1.1 10^3/mcL Eosinophil, Absolute - 0.710^3/mcL Basophil, Absolute - 0.1 10^3/mcL .Estimated Glomerular Filtration Rate (12/21/2023) GFR Non- - 49 ml/min/1.73sqm GFR - 60 ml/min/1.73sqm .Neutro Absolute (12/21/2023) Neutrophil, Absolute - 9.3 10^3/mcL CBC (12/21/2023) WBC - 12.5 10^3/mcL RBC - 4.82 10^6/mcL Hgb - 15.3 G/dL Hct - 44.8 % MCV - 93.0 fL MCH - 31.7 pg MCHC - 34.1 G/dL RDW - 16.5 % Platelet - 248 10^3/mcL MPV - 7.6 fL CMP (12/21/2023) Glucose Level - 118 mg/dL Sodium Level - 141 mEq/L Potassium Level - 3.7 mEq/L Chloride - 104 mEq/LCO2 - 31 mEq/L Electrolyte Balance - 6.0 mEq/L BUN - 24.0 mg/dL Creatinine Lvl (s) - 1.54 mg/dL BUN/Creatinine Ratio - 15.6 ratio Calcium Lvl - 9.9 mg/dL Total Protein - 7.6 G/dL Albumin Level - 3.4 G/dL Globulin - 4.2 G/dL A/G Ratio - 0.8 ratio Bili Total - 0.80 mg/dL Alk Phos - 106 U/L AST/SGOT -11 U/L ALT/SGPT - 9 U/L Cortisol Level (12/21/2023) Cortisol Level - 27.9 mcg/dL Free T3 (12/21/2023) Free T3 - 3.25 pg/mL Free T4 (12/21/2023) Free T4 - 1.34 ng/dL LDH (12/21/2023) LDH - 143 U/L TSH (12/21/2023) TSH - 2.088 mIU/mL Allergies penicillin Swelling Additional Information VACCINATE! IT SAVES LIVES! Members of the community who have not yet received the COVID-19 vaccine and would like to receive it can visit one of [facility] vaccine clinics. There are many vaccine clinic locations within the [facility]. For locations and available times, please visit [email or web address] It is important to note that some COVID mobile vaccine clinics are held outdoors and may be canceled in rainy or stormy conditions. To learn more about pediatric vaccinations (ages 5-11), we invite you to visit the [facility] webpage. [email or web address] learn more about the COVID-19 vaccine, we invite you to visit the CDC website for a list of frequently asked questions. https://www.cdc.gov/coronavirus/2019-ncov/vaccines/faq.html [facility] [employer] Patient Portal Access Instructions: Stay connected with your healthcare team and access your personal medical information anytime with the [facility] Patient Portal.If you would like a full copy of your medical records, please contact the [facility] Medical Records Department, Monday through Monday between 8a.m. and 4:30p.m. Please follow the directions below to access the portal: 1.Access the email account you provided upon registration to the hospital.2.Look for an invitation email from [facility].3.Open the email and access the invitation link: Accept Invitation to [facility]4.Fill in the required delaney to create your account. Sign into [email or web address] with your username and password that you created in the above steps to stay up to date. You can then view a summary of results, a summary of your visits, and the ability to download your summaries to your computer or send the information securely to a physician. Remember that your healthcare information is confidential, so carefully consider who you will allow to register on the [facility] Patient Portal for access to your information. You can also access the [facility] Patient Portal on the [employer]. Simply click on "Health Records" under "HealthData" and then click on the [employer] logo. HOW TO SAFELY DISPOSE OF PRESCRIPTION MEDICATIONS Please use one of the following methods to safely dispose of your unused medications. 1.Use a drug disposal kit: the drug disposal pouch allows you to safely discard your old and unuseddrugs. Ask your nurse to give you one when you are discharged.2.Visit a local take-back location: Many local pharmacies and police departments have programs that collect old and unwanted prescriptiondrugs. Call your local pharmacy or go to http://Huan Xiong.Oddslife/8Y8Ni2d to find one close to you.3.Make use of household items: Use cat litter or old coffee grounds to dispose medications if other options arenot available. Mix your drugs with these household products, seal them in an airtight container andthrow it into the garbage. Call [facility]: [phone] to be sure your drugs can be disposed of in this way. Some medicines may require a different approach.4.Never flush your medications down the toilet. IF YOU HAVE BEEN PRESCRIBED AN OPIOID FOR PAIN If you have been prescribed an opioid (such as hydrocodone, oxycodone or morphine), it is critical to understand the possible side effects and risks of opioid pain medications. Even when taken as directed, opioids can have several side effects including: Tolerance, meaning you might need to take more of a medication for the same pain relief. Nausea, vomiting and/or constipation. Sleepiness, dizziness, dry mouth, confusion, depression or itching. Physical dependence, meaning you have withdrawal symptoms when a medication is stopped, can develop within a few days. KNOW YOUR RESPONSIBILITIES It is important to know exactly how much and how often to take the opioid pain medications you are prescribed. Never take opioids in higher amounts or more often than prescribed. Do not combine opioids with alcohol or other drugs that cause drowsiness, such as benzodiazepines, also known as benzos, including diazepam and alprazolam, muscle relaxants or sleep aids. Never sell or share prescription opioids. This is illegal. Store opioids in a secure place and out of reach of others (including children, family, friends and visitors). The last page of this document has been signed and retained as a CHART COPY. Signatures Patient Education Materials Medication Leaflets My discharge plan and instructions have been reviewed and explained to me and I,LYNDSAY LOPEZ understand my current condition and have read and understand these discharge instructions. I have received a written copy of the plan/instructions. If I have questions, I am aware that I should contact my doctor. Patient/Record Keeper Signature: Date/Time: Relationship to Patient: Witness Name/Signature: Date/Time: [id number] NoteHNO ID: [id number] Author: YASIR BRADFORD APRN.HOME VISITS NURSE Service: ? Author Type: Nurse Specialist Type: Progress Notes Filed: 11/23/2023 06:20 Note Text: CTEPH MULTIDISCIPLINARY CONFERENCE Name: Lyndsay Lopez Age: [id number] year old Gender: male Was discussed at the CTEPH conference on: November 23, 2023 The following information was reviewed: History, echo, RHC and imaging studies Discussion Highlights: - Hx pAF/atrial flutter, RA mass in July 2022 s/p EKOS, nonobstructive CAD, RCC s/p nephrectomy, AKHIL, COPD. - Echo mild LVH, normal EF. RV mod to severely dilated, reduced systolic function, RVSP 60 mmHg. Moderate TR. Right atrium dilated. - RHC RAP 15, mPAP 43, PCWP 13, CI 2.2, PVR 5 BOND. - VQ mismatch in basal branches bilaterally. - CT No glaring parenchymal changes. Webbing in posterior basal RLL. CTEPH Team Recommendations: Needs high quality dual energy CT. Full initial CTEPH eval. Team Members Present: Lanie Salas MD, Onesimo Ramos MD, Shyanne Dockery, MALOU Reyes, MARISA Pulido, and [facility] History of Present illness Narrative* Yasir Bradford APRN.CNS - 11/23/2023 6:12 AM EDT CTEPH MULTIDISCIPLINARY CONFERENCE Name: Lyndsay Lopez Age: [age] year old Gender: male Was discussed at the CTEPH conference on: November 23, 2023 The following information was reviewed: History, echo, RHC and imaging studies Discussion Highlights: - Hx pAF/atrial flutter, RA mass in July 2022 s/p EKOS, nonobstructive CAD, RCC s/p nephrectomy, AKHIL, COPD. - Echo mild LVH, normal EF. RV mod to severely dilated, reduced systolic function, RVSP 60 mmHg. Moderate TR. Right atrium dilated. - RHC RAP 15, mPAP 43, PCWP 13, CI 2.2, PVR 5 BOND. - VQ mismatch in basal branches bilaterally. - CT No glaring parenchymal changes. Webbing in posterior basal RLL. CTEPH Team Recommendations: Needs high quality dual energy CT. Full initial CTEPH eval. Team Members Present: Lanie Salas MD, Onesimo Ramos MD, Shyanne Dockery, MALOU Reyes, MARISA Pulido, and Rachell Sears MD documented in [facility] NoteHNO ID: [id number] Author: ONESIMO RAMOS MD Service: ? Author Type: Physician Type: Progress Notes Filed: 11/21/2023 17:16 Note Text: Patient referred by Noah Bolden MD We have received the following records: Brief HPI: 43 yo M with history of pAF/atrial flutter on amiodarone and Eliquis (current medication list has warfarin), BONNIE in July 2022 showing irregular mass in RRA concerning for thrombus for which patient was transferred to for clot removal and EKOS, mild nonobstructive CAD, history of alcohol abuse, tobacco abuse, metastatic renal cell carcinoma s/p left nephrectomy, radiation, and chemotherapy, vertebral body fracture T11, AKHIL not on CPAP, COPD, and morbid obesity. IVC filter No VQ scan Yes Date 09/18/2023: Impression: Perfusion only: Intermediate probability of pulmonary embolism CT chest with contrast Yes Date 10/12/2023: Stable pathologic T11 compression Although mediastinal nodes are more numerous than is typical, they are normal in size and no enlarged nodes are seen No other potential disease is evident CT chest with contrast 09/19/2023: No evidence for pulmonary embolism Stable T11 compression deformity Mediastinal adenopathy is very similar to the prior study New small right pleural effusion Echocardiogram Yes Date 09/15/2023: Summary: Procedure narrative: Transthoracic echocardiography was performed. Image quality was poor. The study was technically limited due to body habitus. Definity used. Left ventricle: The cavity size is normal. Wall thickness is mildly increased. Systolic function is normal. The estimated ejection fraction is 55-60%. Regional wall motion abnormalities cannot be excluded. Unable to assess diastolic function. Aortic valve: Thickening, consistent with sclerosis. Right ventricle: The cavity size is moderately to severely increased. Systolic function is reduced. Systolic pressure is increased. The RV systolic pressure by Doppler is 60 mmHg. Tricuspid valve: There is moderate regurgitation. Right atrium: The atrium is dilated. The estimated right atrial pressure is 15 mmHg. Inferior vena cava: The IVC is dilated. Right heart catheterization Yes Date 10/31/2023: RA 15 RV 70/15 PA 70/30 mPAP 43 TPG 30 PA sat 67%, Hgb 14.7 g/dL CI 2.2 CO 6 PVR 5 BOND Right heart catheterization Yes Date 09/21/2023 RA 17 Pulmonary pressure 63/23 (37) PCWP 20 CI 2.46 Coronary angiogram No Pulmonary angiogram No Hypercoagulable panel Yes 11/29/2022: B2GP and anticardiolipin Abs WNL PFTs No Creatinine Yes Date 09/25/2023 Value 1.5 Weight 150 kg BMI: No On anticoagulation Yes - warfarin INR 2.9 08/2022 APTT 27 08/2022 Yasir Bradford APRN.HOME VISITS NURSE November 17, 2023 3:39 PM I have reviewed the above data. My impression is that Lyndsay Perez Jessica has PVR 5, RCC, no evidence of CTEPH. Will discuss at MDT. Onesimo Ramos [facility]10-04-2024 History of Present illness Narrative* Onesimo Ramos MD - 11/17/2023 3:36 PM EDT Patient referred by Noah Bolden MD We have received the following records: Brief HPI: 43 yo M with history of pAF/atrial flutter on amiodarone and Eliquis (current medicationlist has warfarin), BONNIE in July 2022 showing irregular mass in RRA concerning for thrombus for which patient was transferred to for clot removal and EKOS, mild nonobstructive CAD, history of alcohol abuse, tobacco abuse, metastatic renal cell carcinoma s/p left nephrectomy, radiation, and chemotherapy, vertebral body fracture T11, AKHIL not on CPAP, COPD, and morbid obesity. IVC filter No VQ scan Yes Date 09/18/2023: Impression: Perfusion only: Intermediate probability of pulmonary embolism CT chest with contrast Yes Date 10/12/2023: Stable pathologic T11 compression Although mediastinal nodes are more numerous than is typical, they are normal in size and no enlarged nodes are seen No other potential disease is evident CT chest with contrast 09/19/2023: No evidence for pulmonary embolism Stable T11 compression deformity Mediastinal adenopathy is very similar to the prior study New small right pleural effusion Echocardiogram Yes Date 09/15/2023: Summary: Procedure narrative: Transthoracic echocardiography was performed. Image quality was poor. The study was technically limited due to body habitus. Definity used. Left ventricle: The cavity size is normal. Wall thickness is mildly increased. Systolic function isnormal. The estimated ejection fraction is 55-60%. Regional wall motion abnormalities cannot be excluded. Unable to assess diastolic function. Aortic valve: Thickening, consistent with sclerosis. Right ventricle: The cavity size is moderately to severely increased. Systolic function is reduced.Systolic pressure is increased. The RV systolic pressure by Doppler is 60 mmHg. Tricuspid valve: There is moderate regurgitation. Right atrium: The atrium is dilated. The estimated right atrial pressure is 15 mmHg. Inferior vena cava: The IVC is dilated. Right heart catheterization Yes Date 10/31/2023: RA 15 RV 70/15 PA 70/30 mPAP 43 TPG 30 PA sat 67%, Hgb 14.7 g/dL CI 2.2 CO 6 PVR 5 BOND Right heart catheterization Yes Date 09/21/2023 RA 17 Pulmonary pressure 63/23 (37) PCWP 20 CI 2.46 Coronary angiogram No Pulmonary angiogram No Hypercoagulable panel Yes 11/29/2022: B2GP and anticardiolipin Abs WNL PFTs No Creatinine Yes Date 09/25/2023 Value 1.5 Weight 150 kg BMI: No On anticoagulation Yes - warfarin INR 2.9 08/2022 APTT 27 08/2022 Yasir Bradford APRN.HOME VISITS NURSE November 17, 2023 3:39 PM I have reviewed the above data. My impression is that Lyndsay Lopez has PVR 5, RCC, no evidence of CTEPH. Will discuss at MDT. Onesimo Ramos MD documented in this encounterOhio[facility] Note Chief Complaint Palliative Care follow up for pain and symptom management History of Present Illness I saw Lyndsay while he was down in infusion. He states this morning he was having pain in his upper and middle back, during that time he rated his pain 4-5 out of 10. During visit he states his back was feeling better. He remains on oxycodone 5 mg tablets 1 tablet every 8 hours as needed for pain typically utilizing 3 doses per day. He states if he does have a lot of pain then sometimes he will utilize an additional dose. He states the oxycodone does help take the edge off and it helps dull the pain. The oxycodone makes the pain tolerable that he is able to walk and do light work. His appetite is good. He denies any nausea or emesis. He remains on senna 1 tablet in the morning and 2 tablets in the evening to help regulate his bowels. He has not needed to utilize any MiraLAX in the past 3 weeks. Review of Systems Denies loss of consciousness, fever, chills, weight loss/gain, changes in appetite, lightheadedness, dizziness, shortness of breath, chest pain/pressure, palpitations, abdominal pain, nausea, emesis,indigestion, dysuria, diarrhea, or constipation. All other systems symptoms reviewed and are negative. Physical Exam Vitals and Measurements T: 36.3 C (Oral) HR: 61 RR: 20 BP: 100/67 HT: 172.7 cm WT: 142 kg BMI: 47.61 General Appearance: Sitting in recliner, in no acute distress Head: Atraumatic, normocephalic EENT: Pupils reactive, sclera white, conjunctiva clear, oral mucosa moist Neck: Supple, trachea midline Cardiac: S1S2, RRR, no murmur; no peripheral edema Lungs: Clear/diminished anteriorly and posteriorly, no shortness of breath, cough, or wheezes Abdomen: Soft, nontender, nondistended, bowel sounds present x4 Musculoskeletal: No joint pain, swelling, or erythema Extremities: Moves all extremities Neurological: Alert and oriented x4, appropriate and cooperative Skin: Pale, warm, dry; no rashes noted Psychiatric: No physical or emotional agitation noted Social History Smoking Status - 11/07/2016 Current every day smoker Alcohol - Medium Risk, 11/07/2016 Use: Past. Type: Beer. Frequency: Daily. Previous treatment: Outpatient. Has alcohol use interferedwith work or home life: No. Do you ever drink more than intended: Yes. Has anyone been hurt or at risk by your drinking: Yes. Ready to change: Yes., 10/31/2023 Employment/School Status: Employed., 12/16/2020 Home/Environment Domestic Concerns: None. Living situation: Home with assistance. 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 Safe place to go: Yes. Lives In: Single level home, 1st floor bedroom, 1st floor bathroom, 1st floor laundry., 08/14/2020 Nutrition/Health Caffeine intake amount: couple bottles a week., 10/20/2022 Type of diet: Regular. Appetite Excellent. Eating Difficulties None., 08/14/2020 Substance Abuse - Denies Substance Abuse, 11/07/2016 Use: Current. Type: Marijuana. Frequency: 1-2 times per month. IV drug use; No. Ready to change: No. Concerns about substance abuse in household: No., 08/14/2020 Tobacco Nicotine Use: 10 or more cigarettes (1/2 pack or more)/day in last 30 days, Quit July; started again the end of August or beginning of September. Type: Cigarettes. Started at age: 13 Years. Ready to change: Yes., 10/20/2022 Family History Bladder cancer: Negative: Mother, Father, Sister, Brother, Daughter, Son and Grandparent. Crohn's disease: Sister. Diabetes: Father. HTN - Hypertension: Mother and Father. Heart attack: Father. Heart disease: Negative: Mother, Father, Sister, Brother, Daughter, Son and Grandparent. Hypertension: Mother and Father.Negative: Sister, Brother, Daughter, Son and Grandparent. Kidney disease: Negative: Mother, Father, Sister, Brother, Daughter, Son and Grandparent. Kidney stone: Mother and Sister.Negative: Father, Brother, Daughter, Son and Grandparent. Prostate cancer: Negative: Father, Brother and Son. Renal cancer: Negative: Mother, Father, Sister, Brother, Daughter, Son and Grandparent. Rheumatoid arthritis: Mother. Health Status Family Member(s) Assessment/Plan 1. Palliative care encounter Palliative care follow-up for pain management and symptom management. 2. Metastatic renal cell carcinoma. S/P Left cytoreductive nephrectomy 08/14/20. 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 Remains on nivolumab 3. Secondary malignant neoplasm of bone (disorder) Active 4. Cancer related pain Lyndsay states this morning he was having pain in his upper and middle back, during that time he rated his pain 4-5 out of 10. During visit he states his back was feeling better. He remains on oxycodone 5 mg tablets 1 tablet every 8 hours as needed for pain typically utilizing 3 doses per day. He states if he does have a lot of pain then sometimes he will utilize an additional dose. He states the oxycodone does help take the edge off and it helps dull the pain. The oxycodone makes the pain tolerable that he is able to walk and do light work. I recommend he continue current pain medication regimen since it is effective in managing his pain. 5. Therapeutic opioid-induced constipation (OIC) Lyndsay remains on senna 1 tablet in the morning and 2 tablets in the evening to help regulate his bowels. He has not needed to utilize any MiraLAX in the past 3 weeks. I recommend he continue current bowel regimen since it is effective in helping to regulate his bowels. Orders: oxyCODONE(oxyCODONE 5 mg oral tablet ( IMMEDIATE release )), 5 mg= 1 tab(s), Oral, q8h, PRN senna(senna (sennosides) 8.6 mg oral tablet), 17.2 mg= 2 tab(s), Oral, BID, PRN, 3 refills Please have him follow-up with Dr. Fung in 4 weeks Medication Administration Given [id number] 480 mg + 9s1 100 mL, IV Piggyback. For: Problem List/Past Medical History Ongoing Alcohol abuse Cancer related pain History of pulmonary embolism Left renal mass. 9.6-cm. With perinephric fat invasion. With lytic bony lesion and pulmonary nodules concerning for mets. BS, 07/2020 - neg. CT brain, 07/2020 - neg. S/P Radical nephrectomy 08/14/20. Metastatic renal cell carcinoma. S/P Left cytoreductive nephrectomy 08/14/20. Final path - ccRCC withsarcomatoid features. Morbid obesity due to excess calories No chronic diseases present Palliative care encounter T11 vertebral fracture Therapeutic opioid-induced constipation (OIC) Tobacco abuse Viral gastroenteritis Cigarette smoker Active Lung nodule, multiple Active Marijuana user Active Secondary malignant neoplasm of bone (disorder) Active Historical Renal cell carcinoma (disorder) Active Procedure/Surgical History Open heart surgery: 08/17/22 Tooth extraction: 08/28/21 Nephrectomy, including partial ureterectomy, any open approach including rib resection; radical, with regional lymphadenectomy and/or vena caval thrombectomy: 08/14/20 Tonsillectomy Boost radiation therapy Chemotherapy Allergies penicillin Swelling Medications What How Much When Why Instructions Last Dose Unchanged amiodarone (amiodarone 200 mg oral tablet) 1 tab(s) by mouth Once a day Unchanged empagliflozin (Jardiance 10 mg oral tablet) 1 tab(s) by mouth Once a day (in the morning) Duration: 30 Days Unchanged fluticasone/ umeclidinium/ vilanterol (Trelegy Ellipta 100 mcg-62.5 mcg-25 mcg/ inh inhalation powder) 1 puff(s) by inhalation Once a day COPD - Chronic obstructive pulmonary disease at the same time every day. Following administration, rinse mouth with water after use (do not swallow). Unchanged furosemide (Lasix 40 mg oral tablet) 1 tab(s) by mouth Two (2) times a day Duration: 30 Days Unchanged metoprolol (metoprolol tartrate 25 mg oral tablet) 1 tab(s) by mouth Two (2) times a day Unchanged ondansetron (Zofran 4 mg oral tablet) 1 tab(s) by mouth Every 6 hours as needed for Nausea/Vomiting Unchanged oxyCODONE (oxyCODONE 5 mg oral tablet ( IMMEDIATE release )) 1 tab(s) by mouth Every 8 hours as needed for for pain [id number] Unchanged senna (senna (sennosides) 8.6 mg oral tablet) 2 tab(s) by mouth Two (2) times a day as needed for as needed for constipation [id number] Unchanged spironolactone (Aldactone 25 mg oral tablet) 1 tab(s) by mouth Once a day Take with food Unchanged warfarin (warfarin 2 mg oral tablet) 1 tab(s) by mouth Once a day Unchanged warfarin (warfarin 5 mg oral tablet) 0.5 tab(s) by mouth Every Mon/Mon///Mon/Mon Unchanged warfarin (warfarin 5 mg oral tablet) 1 tab(s) by mouth Every Monday [id number] [address], [place] [id number] [phone] Digitally Signed by REILLY COLEMAN on 11/16/2023 01:12 PM [id number] Summary of episode note LYNDSAY LOPEZ :1980 Visit Date:11/16/2023 Your Visit Summary Your Diagnosis Metastatic renal cell carcinoma. S/P Left cytoreductive nephrectomy 08/14/20. Final path - ccRCC withsarcomatoid features. Secondary malignant neoplasm of bone (disorder) Active Tests Performed .Auto Differential .Estimated Glomerular Filtration Rate .Neutro Absolute CBC CMP Free T3 Free T4 LDH TSH Your Care Team Attending Physician - BHAVIK TRIANA MD Primary Care Physician - PROSPER MANJARREZ DO Vitals Temperature (Oral) 97.3 F (36.3 C) Heart Rate 61 Respiratory Rate 20 Blood Pressure 100/67 Height 67.99 in (172.7 cm) Weight 313.11 lb (142 kg) BMI 47.61 What to do next Instructions From Your Doctor You have received the following therapy today: Chemotherapy/Immunotherapy Call your physician if any of the following problems occur: Nausea/Vomiting Mouth Sores Diarrhea Fever Prolonged bleeding or easy bruising Pain or discomfort at the injection site Scheduled Follow-Up Appointments Appointment Type When With Where Contact Information StatusPALL OV Follow Up 11/16/2023 01:30 PM EDT REILLY COLEMAN [facility] Confirmed PC Nurse Branden 11/29/2023 02:15 PM EDT [address] [phone] Confirmed PC Wellness Annual 11/30/2023 03:30 PM EDT PROSPER MANJARREZ DO [address] [phone] Confirmed CV OV CHF 12/06/2023 11:00 AM EDT [facility] Confirmed HEM ONC OV Follow Up w/Active Treatment 12/14/2023 10:00 AM EDT BHAVIK TRIANA MD [facility] Confirmed Medications What How Much When Why Instructions Unchanged amiodarone (amiodarone 200 mg oral tablet) 1 tab(s) by mouth Once a day Unchanged empagliflozin (Jardiance 10 mg oral tablet) 1 tab(s) by mouth Once a day (in the morning) Duration: 30 Days Unchanged fluticasone/ umeclidinium/ vilanterol (Trelegy Ellipta 100 mcg-62.5 mcg-25 mcg/ inh inhalation powder) 1 puff(s) by inhalation Once a day COPD - Chronic obstructive pulmonary disease at the same time every day. Following administration, rinse mouth with water after use (do not swallow). Unchanged furosemide (Lasix 40 mg oral tablet) 1 tab(s) by mouth Two (2) times a day Duration: 30 Days Unchanged metoprolol (metoprolol tartrate 25 mg oral tablet) 1 tab(s) by mouth Two (2) times a day Unchanged ondansetron (Zofran 4 mg oral tablet) 1 tab(s) by mouth Every 6 hours as needed for Nausea/Vomiting Unchanged oxyCODONE (oxyCODONE 5 mg oral tablet ( IMMEDIATE release )) 1 tab(s) by mouth Every 8 hours as needed for for pain Renal cancer Unchanged senna (senna (sennosides) 8.6 mg oral tablet) 2 tab(s) by mouth Two (2) times a day as needed for as needed for constipation Unchanged spironolactone (Aldactone 25 mg oral tablet) 1 tab(s) by mouth Once a day Take with food Unchanged warfarin (warfarin 2 mg oral tablet) 1 tab(s) by mouth Once a day Unchanged warfarin (warfarin 5 mg oral tablet) 0.5 tab(s) by mouth Every Mon/Mon///Mon/Mon Unchanged warfarin (warfarin 5 mg oral tablet) 1 tab(s) by mouth Every Monday Test Results .Auto Differential (11/16/2023) Neutrophil % - 66.3 % Lymphocyte % - 15.6 % Monocyte % - 8.8 % Eosinophil % - 8.5 % Basophil % - 0.8 % Lymphocyte, Absolute - 1.5 10^3/mcL Monocyte, Absolute - 0.9 10^3/mcL Eosinophil, Absolute - 0.810^3/mcL Basophil, Absolute - 0.1 10^3/mcL .Estimated Glomerular Filtration Rate (11/16/2023) GFR Non- - 43 ml/min/1.73sqm GFR - 52 ml/min/1.73sqm .Neutro Absolute (11/16/2023) Neutrophil, Absolute - 6.4 10^3/mcL CBC (11/16/2023) WBC - 9.7 10^3/mcL RBC - 5.36 10^6/mcL Hgb - 16.5 G/dL Hct - 48.9 % MCV - 91.2 fL MCH - 30.8 pg MCHC - 33.8 G/dL RDW - 16.9 % Platelet - 248 10^3/mcL MPV - 7.8 fL CMP (11/16/2023) Glucose Level - 108 mg/dL Sodium Level - 138 mEq/L Potassium Level - 4.0 mEq/L Chloride - 105 mEq/LCO2 - 26 mEq/L Electrolyte Balance - 7.0 mEq/L BUN - 33.0 mg/dL Creatinine Lvl (s) - 1.74 mg/dL BUN/Creatinine Ratio - 19.0 ratio Calcium Lvl - 9.5 mg/dL Total Protein - 7.8 G/dL Albumin Level - 3.9 G/dL Globulin - 3.9 G/dL A/G Ratio - 1.0 ratio Bili Total - 0.80 mg/dL Alk Phos - 104 U/L AST/SGOT -32 U/L ALT/SGPT - 29 U/L Free T3 (11/16/2023) Free T3 - 3.81 pg/mL Free T4 (11/16/2023) Free T4 - 1.40 ng/dL LDH (11/16/2023) LDH - 244 U/L TSH (11/16/2023) TSH - 1.361 mIU/mL Allergies penicillin Swelling Additional Information VACCINATE! IT SAVES LIVES! Members of the community who have not yet received the COVID-19 vaccine and would like to receive it can visit one of [facility] vaccine clinics. There are many vaccine clinic locations within the [facility]. For locations and available times, please visit [email or web address] It is important to note that some COVID mobile vaccine clinics are held outdoors and may be canceled in rainy or stormy conditions. To learn more about pediatric vaccinations (ages 5-11), we invite you to visit the [facility] webpage. [email or web address] learn more about the COVID-19 vaccine, we invite you to visit the CDC website for a list of frequently asked questions. https://www.cdc.gov/coronavirus/2019-ncov/vaccines/faq.html [facility] [employer] Patient Portal Access Instructions: Stay connected with your healthcare team and access your personal medical information anytime with the [facility] Patient Portal.If you would like a full copy of your medical records, please contact the [facility] Medical Records Department, Monday through Monday between 8a.m. and 4:30p.m. Please follow the directions below to access the portal: 1.Access the email account you provided upon registration to the hospital.2.Look for an invitation email from [facility].3.Open the email and access the invitation link: Accept Invitation to [facility]4.Fill in the required delaney to create your account. Sign into [email or web address] with your username and password that you created in the above steps to stay up to date. You can then view a summary of results, a summary of your visits, and the ability to download your summaries to your computer or send the information securely to a physician. Remember that your healthcare information is confidential, so carefully consider who you will allow to register on the [facility] Patient Portal for access to your information. You can also access the [facility] Patient Portal on the [employer]. Simply click on "Health Records" under "HealthData" and then click on the [employer] logo. HOW TO SAFELY DISPOSE OF PRESCRIPTION MEDICATIONS Please use one of the following methods to safely dispose of your unused medications. 1.Use a drug disposal kit: the drug disposal pouch allows you to safely discard your old and unuseddrugs. Ask your nurse to give you one when you are discharged.2.Visit a local take-back location: Many local pharmacies and police departments have programs that collect old and unwanted prescriptiondrugs. Call your local pharmacy or go to http://Huan Xiong.Oddslife/1X3Cz0k to find one close to you.3.Make use of household items: Use cat litter or old coffee grounds to dispose medications if other options arenot available. Mix your drugs with these household products, seal them in an airtight container andthrow it into the garbage. Call [facility]: [phone] to be sure your drugs can be disposed of in this way. Some medicines may require a different approach.4.Never flush your medications down the toilet. IF YOU HAVE BEEN PRESCRIBED AN OPIOID FOR PAIN If you have been prescribed an opioid (such as hydrocodone, oxycodone or morphine), it is critical to understand the possible side effects and risks of opioid pain medications. Even when taken as directed, opioids can have several side effects including: Tolerance, meaning you might need to take more of a medication for the same pain relief. Nausea, vomiting and/or constipation. Sleepiness, dizziness, dry mouth, confusion, depression or itching. Physical dependence, meaning you have withdrawal symptoms when a medication is stopped, can develop within a few days. KNOW YOUR RESPONSIBILITIES It is important to know exactly how much and how often to take the opioid pain medications you are prescribed. Never take opioids in higher amounts or more often than prescribed. Do not combine opioids with alcohol or other drugs that cause drowsiness, such as benzodiazepines, also known as benzos, including diazepam and alprazolam, muscle relaxants or sleep aids. Never sell or share prescription opioids. This is illegal. Store opioids in a secure place and out of reach of others (including children, family, friends and visitors). The last page of this document has been signed and retained as a CHART COPY. Signatures Patient Education Materials Medication Leaflets My discharge plan and instructions have been reviewed and explained to me and I,LYNDSAY LOPEZ understand my current condition and have read and understand these discharge instructions. I have received a written copy of the plan/instructions. If I have questions, I am aware that I should contact my doctor. Patient/Record Keeper Signature: Date/Time: Relationship to Patient: Witness Name/Signature: Date/Time: [id number] Telephone encounter Note* Telephone Encounter - Shyanne Dockery - 11/16/2023 11:18 AM EDT Images from the original note were not included. Referring: Images on the way [facility]10-03-2024 Miscellaneous Notes* Telephone Encounter - Shyanne Dockery - 11/16/2023 11:18 AM EDT Images from the original note were not included. Referring: Images on the way [facility] Hospital Discharge instructions Patient Education 10/31/2023 11:01:33 Cardiac SD - Right Heart Cath (Internal Jugular) Discharge Instructions 09/2021(CUSTOM) RIGHT HEART CATHETERIZATION DISCHARGE INSTRUCTIONS AFTER -PROCEDURE ACTIVITIES Do not bend your neck or quickly turn your head for the remainder of the day. No heavy lifting above 10 pounds for the remainder of the day. Do not bend over for 24 hours. You may return to normal activities the following day. Do not shower for 24 hours after procedure. You may remove the dressing on your neck in 24 hours and leave site open to air. No driving for 24 hours. WHAT TO WATCH FOR Monitor procedure site and IV site for signs of bleeding. If bleeding occurs, hold light pressure on the puncture site until bleeding resolves. Monitor for any signs of infection which include: Temperature above 101 degrees Fahrenheit The site becomes red and inflamed or warm to the touch Any pus or foul-smelling drainage coming out of the procedure site Increased pain that does not resolve (Some bruising and tenderness is normal). Follow Up Care 10/20/2023 13:45:49 With:NOAH SEPULVEDA MD Address: [address] [place] [address] [address] [place] [address]- [phone] When:11/17/2023 10:00:00 [facility] 09-17-2024 Summary of episode note Discharge Instructions Thank you for allowing [facility] to assist you with your healthcare needs. The following is importantdischarge information regarding your hospital visit. Your Care Team PROSPER MANJARREZ DO What to do next Scheduled Follow-Up Appointments Appointment Type When With Where Contact Information StatusPC Nurse Protime 11/01/2023 02:15 PM EDT [address] [phone] Confirmed INF/OSP Labwork 11/16/2023 09:45 AM EDT Infusion Therapy Confirmed HEM ONC OV Follow Up w/Active Treatment 11/16/2023 10:30 AM EDT [facility] Confirmed INF Chemo: Infusion 120 min (2 hours) 11/16/2023 11:00 AM EDT Infusion Therapy Confirmed PALL OV Follow Up 11/16/2023 01:30 PM EDT [facility] Confirmed CV OV CHF [facility] 11/17/2023 10:00 AM EDT [facility] Confirmed PC Wellness Annual 11/30/2023 03:30 PM EDT PROSPER MANJARREZ DO [facility] [place] [address] [place] [address] Confirmed Follow Up Appointments Follow Up with NOAH SEPULVEDA MD When:11/17/2023 10:00 AM EDT Where:[address] [facility] [place] [address]- [phone] The Following Treatments Have Been Ordered for You Discharge Labs Discharge Outpatient Labwork - Ordered -- bmp, increased diuretic ordered, follow-up within: 3-5 days, Results Notify to: NOAH SEPULVEDA MD, get drawn monday or monday, 10/31/23 11:16:00 EDT Discharge Radiology No qualifying data available. Other Therapies No qualifying data available. Post Acute Orders No qualifying data available. Allergies penicillin Swelling Medications Please ask your primary doctor or pharmacist before taking any other medication not listed, including over the counter drugs, herbal medications, vitamins and or supplements as they may interact withyour home medications. What How Much When Why Instructions Last Dose New spironolactone (Aldactone 25 mg oral tablet) 1 tab(s) by mouth Once a day Refills: 3 Take with food Pickup at [id number] Changed furosemide (Lasix 40 mg oral tablet) 1 tab(s) by mouth Two (2) times a day Duration: 30 Days Pickup at [facility] #[id number] Unchanged amiodarone (amiodarone 200 mg oral tablet) 1 tab(s) by mouth Once a day Unchanged doxycycline (doxycycline hyclate 100 mg oral capsule) 1 cap by mouth Two (2) times a day Duration: 10 Days Unchanged empagliflozin (Jardiance 10 mg oral tablet) 1 tab(s) by mouth Once a day (in the morning) Duration: 30 Days Unchanged fluticasone/ umeclidinium/ vilanterol (Trelegy Ellipta 100 mcg-62.5 mcg-25 mcg/ inh inhalation powder) 1 puff(s) by inhalation Once a day COPD - Chronic obstructive pulmonary disease at the same time every day. Following administration, rinse mouth with water after use (do not swallow). Unchanged metoprolol (metoprolol tartrate 25 mg oral tablet) 1 tab(s) by mouth Two (2) times a day Unchanged ondansetron (Zofran 4 mg oral tablet) 1 tab(s) by mouth Every 6 hours as needed for Nausea/Vomiting Unchanged oxyCODONE (oxyCODONE 5 mg oral tablet ( IMMEDIATE release )) 1 tab(s) by mouth Every 8 hours as needed for for pain Renal cancer Unchanged senna (senna (sennosides) 8.6 mg oral tablet) 2 tab(s) by mouth Two (2) times a day as needed for as needed for constipation Unchanged warfarin (warfarin 5 mg oral tablet) 0.5 tab(s) by mouth Every Mon/Mon///Mon/Mon Unchanged warfarin (warfarin 5 mg oral tablet) 1 tab(s) by mouth Every Monday Pharmacy Information [facility]/pharmacy #[id number]: [address], [place] [phone] Please take this list to your next doctor s visit. Bring all medications you take, including over the counter medications, herbals and other supplements with you to your doctor s visit. Patients and families are reminded to discard old lists and to update any records with all medication providers or retail pharmacies. Medication Leaflets spironolactone (spir ON oh LAK tone) Aldactone, CaroSpir What is the most important information I should know about spironolactone? You should not use spironolactone if you Ruby's disease, high levels of potassium in your blood,if you are unable to urinate, or if you are also taking eplerenone. What is spironolactone? Spironolactone is a potassium-sparing diuretic (water pill) that prevents your body from absorbing too much salt and keeps your potassium levels from getting too low. Spironolactone is used to treat heart failure, high blood pressure (hypertension), or hypokalemia (low potassium levels in the blood). Spironolactone also treats fluid retention (edema) in people with congestive heart failure, cirrhosis of the liver, or a kidney disorder called nephrotic syndrome. Spironolactone is also used to diagnose or treat a condition in which you have too much aldosteronein your body. Aldosterone is a hormone produced by your adrenal glands to help regulate the salt and water balance in your body. Spironolactone may also be used for purposes not listed in this medication guide. What should I discuss with my healthcare provider before taking spironolactone? You should not use spironolactone if you are allergic to it, or if you have: Ruby's disease (an adrenal gland disorder); high levels of potassium in your blood (hyperkalemia); if you are unable to urinate; or if you are also taking eplerenone. Tell your doctor if you have ever had: an electrolyte imbalance (such as low levels of calcium, magnesium, or sodium in your blood); kidney disease; liver disease; or heart disease. Tell your doctor if you are or plan to become . Having congestive heart failure, cirrhosis, or uncontrolled high blood pressure during may lead to medical problems in the mother or the baby. Your doctor should decide whether you take spironolactone if you are . It may not be safe to breastfeed while using this medicine. Ask your doctor about any risk. How should I take spironolactone? Follow all directions on your prescription label and read all medication guides or instruction sheets. Your doctor may occasionally change your dose. Use the medicine exactly as directed. Do not share this medicine with another person, even if they have the same symptoms you have. You may take spironolactone with or without food, but take it the same way each time. You will need frequent medical tests. This medicine can affect the results of certain medical tests. Tell any doctor who treats you that you are using spironolactone. If you need surgery, tell your surgeon you currently use this medicine. You may need to stop for a short time. If you are being treated for high blood pressure, keep using this medication even if you feel well.High blood pressure often has no symptoms. You may need to use blood pressure medication for the rest of your life. Store at room temperature away from heat, light, and moisture. What happens if I miss a dose? Take the medicine as soon as you can, but skip the missed dose if it is almost time for your next dose. Do not take two doses at one time. What happens if I overdose? Seek emergency medical attention or call the Poison Help line at . What should I avoid while taking spironolactone? Drinking alcohol can increase certain side effects. Do not use potassium supplements or salt substitutes, unless your doctor has told you to. Avoid a diet high in salt. Too much salt will cause your body to retain water and can make this medication less effective. Avoid driving or hazardous activity until you know how this medicine will affect you. Your reactions could be impaired. Avoid getting up too fast from a sitting or lying position, or you may feel dizzy. What are the possible side effects of spironolactone? Get emergency medical help if you have signs of an allergic reaction: hives; difficulty breathing; swelling of your face, lips, tongue, or throat. Call your doctor at once if you have: a light-headed feeling, like you might pass out; little or no urination; high potassium level--nausea, weakness, tingly feeling, chest pain, irregular heartbeats, loss of movement; o signs of other electrolyte imbalances--increased thirst or urination, confusion, vomiting, muscle pain, slurred speech, severe weakness, numbness, loss of coordination, feeling unsteady. Common side effects may include: breast swelling or tenderness. This is not a complete list of side effects and others may occur. Call your doctor for medical advice about side effects. You may report side effects to FDA at 9-178-NYT-1511. What other drugs will affect spironolactone? Using spironolactone with other drugs that make you dizzy can worsen this effect. Ask your doctor before using opioid medication, a sleeping pill, a muscle relaxer, or medicine for anxiety, depression, or seizures. Tell your doctor about all your other medicines, especially: colchicine; digoxin; lithium; loperamide; trimethoprim; heart or blood pressure medicine (especially another diuretic); medicine to prevent a blood clot; or NSAIDs (nonsteroidal anti-inflammatory drugs)--aspirin, ibuprofen (Advil, Motrin), naproxen (Aleve), celecoxib, diclofenac, indomethacin, meloxicam, and others. This list is not complete. Other drugs may affect spironolactone, including prescription and eadh-luu-runujka medicines, vitamins, and herbal products. Not all possible drug interactions are listed here. Where can I get more information? Your pharmacist can provide more information about spironolactone. Remember, keep this and all other medicines out of the reach of children, never share your medicines with others, and use this medication only for the indication prescribed. Every effort has been made to ensure that the information provided by [employer]') is accurate, up-to-date, and complete, but no guarantee is made to that effect. Drug information contained herein may be time sensitive. [employer] information has been compiled for use by healthcare practitioners and consumers in the [place] and therefore [employer] does not warrant that uses outside of the [place] are appropriate, unless specifically indicated otherwise. [employer] drug information does not endorse drugs, diagnose patients or recommend therapy. [employer] drug information isan informational resource designed to assist licensed healthcare practitioners in caring for their p atients and/or to serve consumers viewing this service as a supplement to, and not a substitute for, the expertise, skill, knowledge and judgment of healthcare practitioners. The absence of a warningfor a given drug or drug combination in no way should be construed to indicate that the drug or drug combination is safe, effective or appropriate for any given patient. [employer] does not assume any responsibility for any aspect of healthcare administered with the aid of information [employer] provides. The information contained herein is not intended to cover all possible uses, directions, precautions, warnings, drug interactions, allergic reactions, or adverse effects. If you have questions about the drugs you are taking, check with your doctor, nurse or pharmacist. Copyright [id number] [employer]. Version: .. Revision Date: 04/27/2019. Education Materials RIGHT HEART CATHETERIZATION DISCHARGE INSTRUCTIONS AFTER -PROCEDURE ACTIVITIES Do not bend your neck or quickly turn your head for the remainder of the day. No heavy lifting above 10 pounds for the remainder of the day. Do not bend over for 24 hours. You may return to normal activities the following day. Do not shower for 24 hours after procedure. You may remove the dressing on your neck in 24 hours and leave site open to air. No driving for 24 hours. WHAT TO WATCH FOR Monitor procedure site and IV site for signs of bleeding. If bleeding occurs, hold light pressure on the puncture site until bleeding resolves. Monitor for any signs of infection which include: Temperature above 101 degrees Fahrenheit The site becomes red and inflamed or warm to the touch Any pus or foul-smelling drainage coming out of the procedure site Increased pain that does not resolve (Some bruising and tenderness is normal). Additional Information VACCINATE! IT SAVES LIVES! Members of the community who have not yet received the COVID-19 vaccine and would like to receive it can visit one of [facility] vaccine clinics. There are many vaccine clinic locations within the [facility]. For locations and available times, please visit [email or web address] It is important to note that some COVID mobile vaccine clinics are held outdoors and may be canceled in rainy or stormy conditions. To learn more about pediatric vaccinations (ages 5-11), we invite you to visit the [facility] webpage. https://www.[email or web address]/pages/[email or web address]-Iupoqksrzyf-Tpwmrxkyia-Kxoou-Dhk stions.htmlTo learn more about the COVID-19 vaccine, we invite you to visit the CDC website for a list of frequently asked questions.https://www.cdc.gov/coronavirus/2019-ncov/vaccines/faq.html [facility] Patient Portal Access Instructions: Stay connected with your healthcare team and access your personal medical information anytime with the [facility] Patient Portal. Please follow the directions below to create your [facility] account: 1.Access the email account you provided upon registration to the hospital/physician office.2.Look for an invitation email from [facility].3.Open the email and access the invitation link: AcceptInvitation to [facility].4.Fill in the required delaney to create your account. To access your account, visit [email or web address]. Click the blue button labeled "Access Patient Portal" and then log in with the username and password that you created in the steps above. You will be able to view your test results, lab results, a summary of your visits, upcoming appointments and more. There is also a convenient messaging option where you can send secure messages to your p rovider. In addition, you will have the ability to download any documents or summaries to your computer and/or send the information securely to a physician. Remember that your healthcare information is confidential, so carefully consider who you will allowto register on the [facility] Patient Portal for access to your information. You can also access the [facility] Patient Portal on the [facility] julia. Simply click on "Patient Portal" and then log into your account. If you would like to receive a full copy of your medical records, please contact the [facility] Medical Records Department by calling [phone], Monday through Monday between 8 a.m. and 4:30 p.m. HOW TO SAFELY DISPOSE OF PRESCRIPTION MEDICATIONS Please use one of the following methods to safely dispose of your unused medications. 1.Use a drug disposal kit: the drug disposal pouch allows you to safely discard your old and unuseddrugs. Ask your nurse to give you one when you are discharged.2.Visit a local take-back location: Many local pharmacies and police departments have programs that collect old and unwanted prescriptiondrugs. Call your local pharmacy or go to http://Qyer.com/0T2Xx1s to find one close to you.3.Make use of household items: Use cat litter or old coffee grounds to dispose medications if other options arenot available. Mix your drugs with these household products, seal them in an airtight container andthrow it into the garbage. Call [facility]: [phone] to be sure your drugs can be disposed of in this way. Some medicines may require a different approach.4.Never flush your medications down the toilet. IF YOU HAVE BEEN PRESCRIBED AN OPIOID FOR PAIN If you have been prescribed an opioid (such as hydrocodone, oxycodone or morphine), it is critical to understand the possible side effects and risks of opioid pain medications. Even when taken as directed, opioids can have several side effects including: Tolerance, meaning you might need to take more of a medication for the same pain relief. Nausea, vomiting and/or constipation. Sleepiness, dizziness, dry mouth, confusion, depression or itching. Physical dependence, meaning you have withdrawal symptoms when a medication is stopped, can develop within a few days. KNOW YOUR RESPONSIBILITIES It is important to know exactly how much and how often to take the opioid pain medications you are prescribed. Never take opioids in higher amounts or more often than prescribed. Do not combine opioids with alcohol or other drugs that cause drowsiness, such as benzodiazepines, also known as benzos, including diazepam and alprazolam, muscle relaxants or sleep aids. Never sell or share prescription opioids. This is illegal. Store opioids in a secure place and out of reach of others (including children, family, friends and visitors). The last page of this document has been signed and retained as a CHART COPY. Signatures Patient Education Materials Cardiac SD - Right Heart Cath (Internal Jugular) Discharge Instructions 09/2021(CUSTOM) Medication Leaflets spironolactone My discharge plan and instructions have been reviewed and explained to me and I,LYNDSAY LOPEZ understand my current condition and have read and understand these discharge instructions. I have received a written copy of the plan/instructions. If I have questions, I am aware that I should contact my doctor. Patient/Record Keeper Signature: Date/Time: Relationship to Patient: Witness Name/Signature: [id number] Discharge instructions Patient Education 10/26/2023 14:19:50 Abscess, Incision And Drainage Abscess (Incision & Drainage) An abscess is sometimes called a boil. It happens when bacteria get trapped under the skin and start to grow. Pus forms inside the abscess as the body responds to the bacteria. An abscess can happen with an insect bite, ingrown hair, blocked oil gland, pimple, cyst, or puncture wound. Your healthcare provider has drained the pus from your abscess. If the abscess pocket was large, your healthcare provider may have put in gauze packing. Your provider will need to remove it on your next visit. He or she may also replace it at that time. You may not need antibiotics to treat a simple abscess, unless the infection is spreading into the skin around the wound (cellulitis). The wound will take about 1 to 2 weeks to heal, depending on the size of the abscess. Healthy tissue will grow from the bottom and sides of the opening until it seals over. Home care These tips can help your wound heal: The wound may drain for the first 2 days. Cover the wound with a clean dry dressing. Change the dressing if it becomes soaked with blood or pus. If a gauze packing was placed inside the abscess pocket, you may be told to remove it yourself. Youmay do this in the shower. Once the packing is removed, you should wash the area in the shower, or clean the area as directed by your provider. Continue to do this until the skin opening has closed. Make sure you wash your hands after changing the packing or cleaning the wound. If you were prescribed antibiotics, take them as directed until they are all gone. You may use acetaminophen or ibuprofen to control pain, unless another pain medicine was prescribed. If you have liver disease or ever had a stomach ulcer, talk with your doctor before using these medicines. Follow-up care Follow up with your healthcare provider, or as advised. If a gauze packing was put in your wound, it should be removed in 1 to 2 days. Check your wound every day for any signs that the infection is getting worse. The signs are listed below. When to seek medical advice Call your healthcare provider right away if any of these occur: Increasing redness or swelling Red streaks in the skin leading away from the wound Increasing local pain or swelling Continued pus draining from the wound 2 days after treatment Fever of 100.4 F (38 C) or higher, or as directed by your healthcare provider Boil returns when you are at home 2707-5020 [employer]. [address] [place] [address]. All rights reserved. This information is not intended as a substitute for professional medical care. Always follow yourhealthcare professional's instructions. Follow Up Care 10/26/2023 13:49:52 With:PROSPER MANJARREZ DO Address: [address] [facility] [place] [address]- [phone] When:2-4 days [facility] 09-12-2024 Note Discharge Instructions Thank you for allowing [facility] to assist you with your healthcare needs. The following is importantdischarge information regarding your hospital visit. Diagnosis from Today's Visit Abscess What to Do Next Instructions from Your Care Team No qualifying data available. Post Acute Orders No qualifying data available. You Need to Schedule the Following Appointments Follow Up with PROSPER MANJARREZ DO When:Within 2-4 days Where:[address] [facility] [place] [address]- [phone] Allergies penicillin Swelling Medications Please ask your primary doctor or pharmacist before taking any other medication not listed, including over the counter drugs, herbal medications, vitamins and or supplements as they may interact withyour home medications. What How Much When Why Instructions Last Dose New acetaminophen-hydrocodone ([place] 325- 5 mg oral tablet) 1 tab(s) by mouth Every 6 hours as needed for as needed for pain Abscess Duration: 3 Days Printed Prescription New doxycycline (doxycycline hyclate 100 mg oral capsule) 1 cap by mouth Two (2) times a day Duration: 10 Days Printed Prescription New ondansetron (ondansetron 4 mg oral tablet, disintegrating) 1 tab(s) by mouth Every 6 hours Duration: 4 Days Printed Prescription Unchanged amiodarone (amiodarone 200 mg oral tablet) 1 tab(s) by mouth Once a day Unchanged empagliflozin (Jardiance 10 mg oral tablet) 1 tab(s) by mouth Once a day (in the morning) Duration: 30 Days Unchanged fluticasone/ umeclidinium/ vilanterol (Trelegy Ellipta 100 mcg-62.5 mcg-25 mcg/ inh inhalation powder) 1 puff(s) by inhalation Once a day COPD - Chronic obstructive pulmonary disease at the same time every day. Following administration, rinse mouth with water after use (do not swallow). Unchanged furosemide (Lasix 40 mg oral tablet) 1 tab(s) by mouth Every day Duration: 30 Days Unchanged metoprolol (Lopressor 25mg--USE metoprolol tartrate 25 mg oral tablet) Once a day Unchanged oxyCODONE (oxyCODONE 5 mg oral tablet ( IMMEDIATE release )) 1 tab(s) by mouth Every 8 hours as needed for for pain Renal cancer Unchanged senna (senna (sennosides) 8.6 mg oral tablet) 2 tab(s) by mouth Two (2) times a day as needed for as needed for constipation Unchanged warfarin 5 Milligram by mouth Every week Unchanged warfarin (warfarin 5 mg oral tablet) 0.5 tab(s) by mouth Every 48 hours Duration: 30 Days as directed Please take this list to your next doctor s visit. Bring all medications you take, including over the counter medications, herbals and other supplements with you to your doctor s visit. Patients and families are reminded to discard old lists and to update any records with all medication providers or retail pharmacies. Education Materials Abscess (Incision & Drainage) An abscess is sometimes called a boil. It happens when bacteria get trapped under the skin and start to grow. Pus forms inside the abscess as the body responds to the bacteria. An abscess can happen with an insect bite, ingrown hair, blocked oil gland, pimple, cyst, or puncture wound. Your healthcare provider has drained the pus from your abscess. If the abscess pocket was large, your healthcare provider may have put in gauze packing. Your provider will need to remove it on your next visit. He or she may also replace it at that time. You may not need antibiotics to treat a simple abscess, unless the infection is spreading into the skin around the wound (cellulitis). The wound will take about 1 to 2 weeks to heal, depending on the size of the abscess. Healthy tissue will grow from the bottom and sides of the opening until it seals over. Home care These tips can help your wound heal: The wound may drain for the first 2 days. Cover the wound with a clean dry dressing. Change the dressing if it becomes soaked with blood or pus. If a gauze packing was placed inside the abscess pocket, you may be told to remove it yourself. Youmay do this in the shower. Once the packing is removed, you should wash the area in the shower, or clean the area as directed by your provider. Continue to do this until the skin opening has closed. Make sure you wash your hands after changing the packing or cleaning the wound. If you were prescribed antibiotics, take them as directed until they are all gone. You may use acetaminophen or ibuprofen to control pain, unless another pain medicine was prescribed. If you have liver disease or ever had a stomach ulcer, talk with your doctor before using these medicines. Follow-up care Follow up with your healthcare provider, or as advised. If a gauze packing was put in your wound, it should be removed in 1 to 2 days. Check your wound every day for any signs that the infection is getting worse. The signs are listed below. When to seek medical advice Call your healthcare provider right away if any of these occur: Increasing redness or swelling Red streaks in the skin leading away from the wound Increasing local pain or swelling Continued pus draining from the wound 2 days after treatment Fever of 100.4 F (38 C) or higher, or as directed by your healthcare provider Boil returns when you are at home [id number] [employer]. [address] [place] [address]. All rights reserved. This information is not intended as a substitute for professional medical care. Always follow yourhealthcare professional's instructions. Additional Information VACCINATE! IT SAVES LIVES! Members of the community who have not yet received the COVID-19 vaccine and would like to receive it can visit one of [facility] vaccine clinics. There are many vaccine clinic locations within the [facility]. For locations and available times, please visit www.[email or web address]/. It is important to note that some COVID mobile vaccine clinics are held outdoors and may be canceled in rainy or stormy conditions. To learn more about pediatric vaccinations (ages 5-11), we invite you to visit the [facility] webpage. [email or web address].[email or web address]/pages/[email or web address]-Stbvo-Elxnayxiqwc-Kcxinxlxjl-Gaxjf-Oum stions.htmlTo learn more about the COVID-19 vaccine, we invite you to visit the CDC website for a list of frequently asked questions. https://www.cdc.gov/coronavirus/2019-ncov/vaccines/faq.html [facility] Patient Portal Access Instructions: Stay connected with your healthcare team and access your personal medical information anytime with the [facility] Patient Portal. If you would like a full copy of your medical records please contact the [facility] Medical Records Department Monday through Monday between 8a.m. and 4:30p.m. Please follow the directions below to access the portal: 1.Access the email account you provided upon registration to the hospital.2.Look for an invitation email from [facility].3.Open the email and access the invitation link: Accept Invitation to [facility]4.Fill in the required delaney to create your account. Sign into [email or web address] with your username and password that you created in the above steps to stay up to date. You can then view a summary of results, a summary of your visits, and the ability to download your summaries to your computer or send the information securely to a physician. Remember that your healthcare information is confidential, so carefully consider who you will allow to register on the [facility] Patient Portal for access to your information. You can also access the [facility] Patient Portal on the [employer] julia. Simply click on "Health Records" under "HealthDaEyegroove" and then click on the Plannify logo. HOW TO SAFELY DISPOSE OF PRESCRIPTION MEDICATIONS Please use one of the following methods to safely dispose of your unused medications. 1.Use a drug disposal kit: the drug disposal pouch allows you to safely discard your old and unuseddrugs. Ask your nurse to give you one when you are discharged.2.Visit a local take-back location: Many local pharmacies and police departments have programs that collect old and unwanted prescriptiondrugs. Call your local pharmacy or go to http://Huan Xiong.Oddslife/4R9Yc3b to find one close to you.3.Make use of household items: Use cat litter or old coffee grounds to dispose medications if other options arenot available. Mix your drugs with these household products, seal them in an airtight container andthrow it into the garbage. Call [facility]: [phone] to be sure your drugs can be disposed of in this way. Some medicines may require a different approach.4.Never flush your medications down the toilet. IF YOU HAVE BEEN PRESCRIBED AN OPIOIDS FOR PAIN If you have been prescribed an opioid (such as hydrocodone, oxycodone or morphine), it is critical to understand the possible side effects and risks of opioid pain medications. Even when taken as directed, opioids can have several side effects including: Tolerance, meaning you might need to take more of a medication for the same pain relief. Nausea, vomiting and/or constipation. Sleepiness, dizziness, dry mouth, confusion, depression or itching. Physical dependence, meaning you have withdrawal symptoms when a medication is stopped ? this can develop within a few days. KNOW YOUR RESPONSIBILITIES It is important to know exactly how much and how often to take the opioid pain medications you are prescribed. Never take opioids in higher amounts or more often than prescribed. Do not combine opioids with alcohol or other drugs that cause drowsiness, such as benzodiazepines, also known as benzos,including diazepam and alprazolam, muscle relaxants or sleep aids. Never sell or share prescriptionopioids. This is illegal. Store opioids in a secure place and out of reach of others (including children, family, friends and visitors). The last page(s) of this document has been signed and retained as a CHART COPY Signatures Patient Education Materials Abscess, Incision And Drainage Medication Leaflets My discharge plan and instructions have been reviewed and explained to me and I,LYNDSAY LOPEZ understand my current condition and have read and understand these discharge instructions. I have received a written copy of the plan/instructions. If I have questions, I am aware that I should contact my doctor. Patient/Record Keeper Signature: Date/Time: Relationship to Patient: Witness Name/Signature: Date/Time: [facility]09-05-2024 Summary of episode note LYNDSAY LOPEZ :1980 Visit Date:10/19/2023 Your Visit Summary Your Diagnosis Metastatic renal cell carcinoma. S/P Left cytoreductive nephrectomy 08/14/20. Final path - ccRCC withsarcomatoid features. Metastatic renal cell carcinoma. S/P Left cytoreductive nephrectomy 08/14/20. Final path - ccRCC withsarcomatoid features. Secondary malignant neoplasm of bone (disorder) Active Tests Performed .Auto Differential .Estimated Glomerular Filtration Rate .Neutro Absolute CBC CMP Cortisol Level Free T3 Free T4 LDH TSH Your Care Team Attending Physician - BHAVIK TRIANA MD Primary Care Physician - PROSPER MANJARREZ DO Vitals Temperature (Oral) 98.1 F (36.7 C) Heart Rate (Apical) 65 Respiratory Rate 20 Blood Pressure 100/57 Height 67.99 in (172.7 cm) Weight 337.59 lb (153.1 kg) BMI 51.33 What to do next Scheduled Follow-Up Appointments Appointment Type When With Where Contact Information StatusPC Nurse Protime 11/01/2023 02:15 PM EDT [address] [phone] Confirmed HEM ONC OV Follow Up w/Active Treatment 11/16/2023 10:30 AM EDT EZEQUIEL LEAL EKG MONITOR-WORD PROCESSING SPECIALIST [facility] Confirmed PALL OV Follow Up 11/16/2023 01:30 PM EDT REILLY COLEMAN EKG MONITOR-WORD PROCESSING SPECIALIST [facility] Confirmed CV OV [facility] 11/17/2023 10:00 AM EDT [facility] [place] Confirmed PC Wellness Annual 11/30/2023 03:30 PM EDT PROSPER MANJARREZ DO [address] [phone] Confirmed Medications What How Much When Why Instructions Changed warfarin 5 Milligram by mouth Every week Changed warfarin (warfarin 5 mg oral tablet) 0.5 tab(s) by mouth Every 48 hours Duration: 30 Days as directed Unchanged amiodarone (amiodarone 200 mg oral tablet) 1 tab(s) by mouth Once a day Unchanged empagliflozin (Jardiance 10 mg oral tablet) 1 tab(s) by mouth Once a day (in the morning) Duration: 30 Days Unchanged fluticasone/ umeclidinium/ vilanterol (Trelegy Ellipta 100 mcg-62.5 mcg-25 mcg/ inh inhalation powder) 1 puff(s) by inhalation Once a day COPD - Chronic obstructive pulmonary disease at the same time every day. Following administration, rinse mouth with water after use (do not swallow). Unchanged furosemide (Lasix 40 mg oral tablet) 1 tab(s) by mouth Every day Duration: 30 Days Unchanged metoprolol (Lopressor 25mg--USE metoprolol tartrate 25 mg oral tablet) Once a day Unchanged oxyCODONE (oxyCODONE 5 mg oral tablet ( IMMEDIATE release )) 1 tab(s) by mouth Every 8 hours as needed for for pain Renal cancer Unchanged senna (senna (sennosides) 8.6 mg oral tablet) 2 tab(s) by mouth Two (2) times a day as needed for as needed for constipation Test Results .Auto Differential (10/19/2023) Neutrophil % - 59.0 % Lymphocyte % - 19.0 % Monocyte % - 8.6 % Eosinophil % - 12.2 % Basophil % - 1.2 % Lymphocyte, Absolute - 1.3 10^3/mcL Monocyte, Absolute - 0.6 10^3/mcL Eosinophil, Absolute - 0.8 10^3/mcL Basophil, Absolute - 0.1 10^3/mcL .Estimated Glomerular Filtration Rate (10/19/2023) GFR Non- - 55 ml/min/1.73sqm GFR - >60 ml/min/1.73sqm .Neutro Absolute (10/19/2023) Neutrophil, Absolute - 4.0 10^3/mcL CBC (10/19/2023) WBC - 6.7 10^3/mcL RBC - 4.82 10^6/mcL Hgb - 14.7 G/dL Hct - 44.6 % MCV - 92.6 fL MCH - 30.4 pg MCHC - 32.9 G/dL RDW - 16.7 % Platelet - 176 10^3/mcL MPV - 7.7 fL CMP (10/19/2023) Glucose Level - 104 mg/dL Sodium Level - 139 mEq/L Potassium Level - 3.6 mEq/L Chloride - 103 mEq/LCO2 - 30 mEq/L Electrolyte Balance - 6.0 mEq/L BUN - 20.0 mg/dL Creatinine Lvl (s) - 1.40 mg/dL BUN/Creatinine Ratio - 14.3 ratio Calcium Lvl - 9.2 mg/dL Total Protein - 7.0 G/dL Albumin Level - 3.4 G/dL Globulin - 3.6 G/dL A/G Ratio - 0.9 ratio Bili Total - 0.80 mg/dL Alk Phos - 112 U/L AST/SGOT -19 U/L ALT/SGPT - 18 U/L Cortisol Level (10/19/2023) Cortisol Level - 13.2 mcg/dL Free T3 (10/19/2023) Free T3 - 3.73 pg/mL Free T4 (10/19/2023) Free T4 - 1.20 ng/dL LDH (10/19/2023) LDH - 187 U/L TSH (10/19/2023) TSH - 4.392 mIU/mL Allergies penicillin Swelling Additional Information VACCINATE! IT SAVES LIVES! Members of the community who have not yet received the COVID-19 vaccine and would like to receive it can visit one of [facility] vaccine clinics. There are many vaccine clinic locations within the [facility]. For locations and available times, please visit www.gettheshot.coronavirus.[place].gov/. It is important to note that some COVID mobile vaccine clinics are held outdoors and may be canceled in rainy or stormy conditions. To learn more about pediatric vaccinations (ages 5-11), we invite you to visit the [facility] webpage. https://www.[facility].org/pages/8280-Ywxup-Ydpxwkggwhe-Juoaityuul-Sqcgh-Qra stions.htmlTo learn more about the COVID-19 vaccine, we invite you to visit the CDC website for a list of frequently asked questions. https://www.cdc.gov/coronavirus/2019-ncov/vaccines/faq.html [facility] [employer] Patient Portal Access Instructions: Stay connected with your healthcare team and access your personal medical information anytime with the [facility] Patient Portal.If you would like a full copy of your medical records, please contact the [facility] Medical Records Department, Monday through Monday between 8a.m. and 4:30p.m. Please follow the directions below to access the portal: 1.Access the email account you provided upon registration to the [facility].2.Look for an invitation email from [facility].3.Open the email and access the invitation link: Accept Invitation to [facility]4.Fill in the required delaney to create your account. Sign into [email or web address] with your username and password that you created in the above steps to stay up to date. You can then view a summary of results, a summary of your visits, and the ability to download your summaries to your computer or send the information securely to a physician. Remember that your healthcare information is confidential, so carefully consider who you will allow to register on the [facility] Patient Portal for access to your information. You can also access the [facility] Patient Portal on the [employer]. Simply click on "Health Records" under "[facility]egro[facility]" and then click on the [employer] logo. HOW TO SAFELY DISPOSE OF PRESCRIPTION MEDICATIONS Please use one of the following methods to safely dispose of your unused medications. 1.Use a drug disposal kit: the drug disposal pouch allows you to safely discard your old and unuseddrugs. Ask your nurse to give you one when you are discharged.2.Visit a local take-back location: Many local pharmacies and police departments have programs that collect old and unwanted prescriptiondrugs. Call your local pharmacy or go to http://Huan Xiong.Oddslife/8U6Jf9p to find one close to you.3.Make use of household items: Use cat litter or old coffee grounds to dispose medications if other options arenot available. Mix your drugs with these household products, seal them in an airtight container andthrow it into the garbage. Call [facility]: [phone] to be sure your drugs can be disposed of in this way. Some medicines may require a different approach.4.Never flush your medications down the toilet. IF YOU HAVE BEEN PRESCRIBED AN OPIOID FOR PAIN If you have been prescribed an opioid (such as hydrocodone, oxycodone or morphine), it is critical to understand the possible side effects and risks of opioid pain medications. Even when taken as directed, opioids can have several side effects including: Tolerance, meaning you might need to take more of a medication for the same pain relief. Nausea, vomiting and/or constipation. Sleepiness, dizziness, dry mouth, confusion, depression or itching. Physical dependence, meaning you have withdrawal symptoms when a medication is stopped, can develop within a few days. KNOW YOUR RESPONSIBILITIES It is important to know exactly how much and how often to take the opioid pain medications you are prescribed. Never take opioids in higher amounts or more often than prescribed. Do not combine opioids with alcohol or other drugs that cause drowsiness, such as benzodiazepines, also known as benzos, including diazepam and alprazolam, muscle relaxants or sleep aids. Never sell or share prescription opioids. This is illegal. Store opioids in a secure place and out of reach of others (including children, family, friends and visitors). The last page of this document has been signed and retained as a CHART COPY. Signatures Patient Education Materials Medication Leaflets My discharge plan and instructions have been reviewed and explained to me and ILYNDSAY LOPEZ understand my current condition and have read and understand these discharge instructions. I have received a written copy of the plan/instructions. If I have questions, I am aware that I should contact my doctor. Patient/Record Keeper Signature: Date/Time: Relationship to Patient: Witness Name/Signature: Date/Time[id number] Note ORIGINAL EXAMINATION: CT OF THE CHEST WITH CONTRAST 10/12/2023 11:15 am TECHNIQUE: CT of the chest was performed with the administration of intravenous contrast. Multiplanar reformatted images are provided for review. Automated exposure control, iterative reconstruction, and/or weight based adjustment of the mA/kV was utilized to reduce the radiation dose to as low as reasonably achievable. COMPARISON: September 19, 2023 HISTORY: ORDERING SYSTEM PROVIDED HISTORY: Reason for Exam: Monitor for progression FINDINGS: Recist 1.1: POTENTIAL TARGET TUMOR LESIONS (maximum 5 lesions, maximum 2 per organ, longest dimension in axial plane reported, >10 mm, reproducible lesions): None POTENTIAL TARGET LYMPH NODES (>15 mm short axis, maximum 2): None NONTARGET LESIONS (Definite tumor lesions, lymph nodes 10-14 mm short axis, immeasurable lesions such as lymphangitic involvement, ascites, pleural effusions, etc.): Stable T11 pathologic compression. Pathologic T11 compression deformity is again identified, similar in appearance to the previous study. Minor degenerative changes are noted in the thoracic spine. No other osseous abnormality identified. Small scattered areas of pulmonary and pleural scarring are noted. No focal consolidation is evident and there is no pleural fluid seen. Mediastinal lymph nodes are more numerous than is typical, although there are no pathologically enlarged node seen. Nodes appear less prominent than seen previously. No other significant interval change is evident. Incidental gynecomastia noted bilaterally. IMPRESSION: 1. Stable pathologic T11 compression. 2. Although mediastinal nodes are more numerous than is typical, they are normal in size and no enlarged nodes are seen. 3. No other potential disease is evident. Interpreted by: Rachell Dennis MD Preliminary Report By: Rachell Dennis MD Electronically signed By Rachell Dennis MD Dictated Date: 10/12/2023 11:40:52 AM Prelim Date: 10/12/2023 11:44:32 AM Sign Date: 10/12/2023 11:44:32 AM Ordering Provider: [facility]08-29-2024 Note ORIGINAL EXAMINATION: CT OF THE ABDOMEN AND PELVIS WITH CONTRAST 10/12/2023 11:15 am TECHNIQUE: CT of the abdomen and pelvis was performed with the administration of intravenous contrast. Multiplanar reformatted images are provided for review. Automated exposure control, iterative reconstruction, and/or weight based adjustment of the mA/kV was utilized to reduce the radiation dose to as low as reasonably achievable. COMPARISON: September 12, 2023 HISTORY: ORDERING SYSTEM PROVIDED HISTORY: Reason for Exam: Monitor for progression FINDINGS: Recist 1.1: POTENTIAL TARGET TUMOR LESIONS (maximum 5 lesions, maximum 2 per organ, longest dimension in axial plane reported, >10 mm, reproducible lesions): None POTENTIAL TARGET LYMPH NODES (>15 mm short axis, maximum 2): None NONTARGET LESIONS (Definite tumor lesions, lymph nodes 10-14 mm short axis, immeasurable lesions such as lymphangitic involvement, ascites, pleural effusions, etc.): None CT chest is also performed and is reported separately. T11 pathologic fracture is again identified, and this is very similar in appearance to the previous study. No other osseous abnormality seen. Liver, spleen, adrenal glands and pancreas are unremarkable. The right kidney appears normal. Patient is status post left nephrectomy. No unusual soft tissue is identified at the nephrectomy bed. There is a small posterolateral left flank hernia present containing minimal bowel without evidence for obstruction. No adenopathy, free air or free fluid is identified. The urinary bladder is grossly normal. Previously seen diffuse anasarca has resolved. The pannus is incompletely imaged, but previously seen skin thickening and subcutaneous induration appears resolved. No GI tract abnormality is visible. No additional contributory finding seen. IMPRESSION: 1. Stable T11 pathologic fracture. 2. No other potential metastatic disease. No residual or recurrent disease seen. 3. Resolution of anasarca, and resolution of presumed previously seen pannus cellulitis. Interpreted by: Rachell Dennis MD Preliminary Report By: Rachell Dennis MD Electronically signed By Rachell Dennis MD Dictated Date: 10/12/2023 11:31:48 AM Prelim Date: 10/12/2023 11:36:14 AM Sign Date: 10/12/2023 11:36:14 AM Ordering Provider: [facility]08-12-2024 Discharge summary Date of Service 09/25/23 Discharge Diagnosis Acute on chronic diastolic (congestive) heart failure (I50.33 - ICD-10-CM) Acute on chronic diastolic (congestive) heart failure (I50.33 - ICD-10-CM) Secondary malignant neoplasm of bone (C79.51 - ICD-10-CM) Body mass index [BMI] 60.0-69.9, adult (Z68.44 - ICD-10-CM) Other primary thrombophilia (D68.59 - ICD-10-CM) Cellulitis of abdominal wall (L03.311 - ICD-10-CM) Other ascites (R18.8 - ICD-10-CM) Acute kidney failure, unspecified (N17.9 - ICD-10-CM) Morbid (severe) obesity due to excess calories (E66.01 - ICD-10-CM) Fluid overload, unspecified (E87.70 - ICD-10-CM) Alcohol abuse, uncomplicated (F10.10 - ICD-10-CM) Cannabis use, unspecified, uncomplicated (F12.90 - ICD-10-CM) Nicotine dependence, cigarettes, uncomplicated (F17.210 - ICD-10-CM) Other psychoactive substance use, unspecified, uncomplicated (F19.90 - ICD-10-CM) Personal history of other diseases of the circulatory system (Z86.79 - ICD-10-CM) Acute upper respiratory infection, unspecified (J06.9 - ICD-10-CM) Personal history of other malignant neoplasm of kidney (Z85.528 - ICD-10-CM) Acquired absence of kidney (Z90.5 - ICD-10-CM) Personal history of pulmonary embolism (Z86.711 - ICD-10-CM) Chronic obstructive pulmonary disease, unspecified (J44.9 - ICD-10-CM) Other specified soft tissue disorders (M79.89 - ICD-10-CM) Localized enlarged lymph nodes (R59.0 - ICD-10-CM) Generalized edema (R60.1 - ICD-10-CM) Abnormal coagulation profile (R79.1 - ICD-10-CM) Constipation, unspecified (K59.00 - ICD-10-CM) Cellulitis of corpus cavernosum and penis (N48.22 - ICD-10-CM) Personal history of irradiation (Z92.3 - ICD-10-CM) Personal history of antineoplastic chemotherapy (Z92.21 - ICD-10-CM) Pulmonary hypertension, unspecified (I27.20 - ICD-10-CM) Additional Orders: Other status: Communication Order (scheduled),09/25/23 13:53:00 EDT, now, 09/25/23 13:53:00 EDT, Please pull ochoa(Complete) Other status: Discharge,09/25/23 14:09:00 EDT, Discharged to: Home(Complete) Ordered: Discharge Activity,Resume your pre-hospitalization activity, 09/25/23 14:09:00 EDT Ordered: Discharge Diet,Type of Diet: Regular, 09/25/23 14:09:00 EDT Ordered: Discharge Outpatient Labwork,BMP BMP, Mg level, Acute heart failure exacerbation, Results Notify to: PROSPER MANJARREZ DO, 09/25/23 14:09:00 EDT Discontinued: Ochoa Catheter Insertion/Care,09/18/23 12:30:00 EDT, Nurse Driven Removal Protocol, Critically ill, Cath Care: Daily, Strict I and O monitoring Ordered: Jardiance 10 mg oral tablet,Dose : 10 mg = 1 tab(s), Oral, qAM, # 30 tab(s), 1 Refill(s), Pharmacy: [facility]/pharmacy #[id number], 172.7, cm, 09/18/23 2:04:00 EDT, Height, kg, 09/23/23 8:43:00 EDT, Dosing Weight Ordered: Lasix 40 mg oral tablet,Dose : 40 mg = 1 tab(s), Oral, Daily, # 30 tab(s), 1 Refill(s), Pharmacy: [facility]/pharmacy #[id number], 172.7, cm, 09/18/23 2:04:00 EDT, Height, kg, 09/23/23 8:43:00 EDT, Dosing Weight Discontinued: Telemetry Monitoring,09/18/23 1:46:56 EDT, Constant order Other status: warfarin,Start: 09/24/23 8:00:00 EDT, Dose = 2.5 mg, = 1 tab(s), Oral, qDay, 0, 09/24/23 8:00:00 EDT(Suspend) Ordered: warfarin 5 mg oral tablet,Dose : 2.5 mg = 0.5 tab(s), Oral, q48h, as directed, # 7.5 tab(s), 11 Refill(s), Pharmacy: [facility]/pharmacy #[id number], 172.7, cm, 09/18/23 2:04:00 EDT, Height, kg, 248:43:00 EDT, Dosing Weight Hospital Course 43-year-old male with a history of metastatic renal cell carcinoma status post left-sided nephrectomy in 2020, HFpEF, obesity, COPD, PE on Coumadin, smoker and alcohol abuse presented due to bilateral lower extremity swelling, orthopnea, 40 pound weight gain, increased swelling in scrotum. He was admitted to [facility] for management heart failure then [facility] He was started on lasix drip at 10 ggt and put out 10L of urine over 24 hours. Continued on antibiotics for cellulitis of the scrotum identified on imaging without any associated sepsis. He diuresed over 20L of urine. Underwent CTA due to history of PE with concern for strain which was negative. Right heart cath performed and results are pending. Nephrology followed due to acutekidney injury, presence of solitary kidney, and metastatic renal cell carcinoma. Patient was transition to oral diuretics. He was evaluated by pulmonology and heart failure specialist prior to discharge. Plan is daily Lasix 40 and Jardiance 10. Heart failure specialist will follow-up and treat him for his pulmonary hypertension. Patient may require additional diagnostic test which can be performed on an outpatient basis. He lost roughly 80 pounds during his hospital stay from diuresis. Allergies penicillin Swelling Procedures Right heart cath 09/21/23: Official report pending RAP 18 RV pressure 64/18 PAP 64/26 (35) PCWP 20 Consults Consult to Physician - Ordered -- 09/18/23 1:49:00 EDT, NOAH SEPULVEDA MD, Routine, goals of diureses, gdmt Consult to Physician - Ordered -- 09/18/23 14:06:00 EDT, LIAN CULVER MD, Routine, follow medically, Scrotal cellulitis, CHF,difficult Ochoa's [needed for strict I and O monitoring] Consult to Physician - Ordered -- 09/21/23 8:12:00 EDT, CORBY REESE MD, Routine, solitary kidney, maria esther, on lasix drip, s/pcta Consult to Physician - Ordered -- 09/24/23 11:00:00 EDT, NOAH SEPULVEDA MD, Routine, group II and IV PHTN (HF consult) Consult to Physician - Ordered -- 09/24/23 11:00:00 EDT, EMILIO LOPEZ MD, Routine, PHTN Imaging Results and Diagnostics Transthoracic Echocardiography M-mode, complete 2D, complete spectral Doppler, and color Doppler Patient: LYNDSAY LOPEZ Study date: 09/15/2023 Study Time: 02:33 PM (MRN) Gender: Male 1980 Age: 43 year(s) date: BMI: 65.5 kg/m Ht/Wt: 68 in 431 lb BP: 154/97 Reading physician: NOAH SEPULVEDA Fleet Dispatch Manager: Pattie Long RVT, [facility] Ordering physician: MURALI MAGANA History: Tricuspid regurgitation. Billing diagnosis codes: Dyspnea, unspecified (R06.00). Edema, unspecified (R60.9). Summary: 1. Procedure narrative: Transthoracic echocardiography was performed. Image quality was poor. The study was technically limited due to body habitus. 8 ml of intravenous contrast (Definity) was administered to opacify the LV. 2. Left ventricle: The cavity size is normal. Wall thickness is mildly increased. Systolic functionis normal. The estimated ejection fraction is 55-60%. Regional wall motion abnormalities cannot be excluded. Unable to assess diastolic function. 3. Aortic valve: Thickening, consistent with sclerosis. 4. Right ventricle: The cavity size is moderately to severely increased. Systolic function is reduced. Systolic pressure is increased. The RV systolic pressure by Doppler is 60 mm Hg. 5. Tricuspid valve: There is moderate regurgitation. 6. Right atrium: The atrium is dilated. The estimated right atrial pressure is 15 mm Hg. 7. Inferior vena cava: The IVC is dilated. [1] XR Chest 1 View Result Date: September 25, 2023 Verified By: PAIGE RAY MD CLINICAL STATEMENT: IMPRESSION: No vascular congestion. Persistent small right pleural effusion and basilaratelectasis unchanged. CT Angiography Chest w/ Contrast Result Date: September 19, 2023 Verified By: RACHELL DENNIS MD CLINICAL STATEMENT: IMPRESSION: 1. No evidence for pulmonary embolism.2. Stable T11 compression deformity.3. Mediastinal adenopathy is very similar to the prior study.4. New small right pleural effusion. NM Pulmonary Perfusion Imaging Result Date: September 18, 2023 Verified By: FABIAN NEWELL MD CLINICAL STATEMENT: IMPRESSION: Perfusion only: Intermediate probability of pulmonary embolism. XR Chest 2 Views Result Date: September 18, 2023 Verified By: PAIGE RAY MD CLINICAL STATEMENT: IMPRESSION: There is right basilar atelectasis and probably small right pleural effusionsimilar to or slightly improved from the earlier chest radiograph. Physical Exam Vitals and Measurements T: 36.8 C (Oral) TMIN: 36.4 C (Oral) TMAX: 36.8 C (Oral) HR: 64 RR: 18 BP: 131/85 SpO2: 94% WT: 158.7 kg Weight Current Weight Dosing Weight: 163.7 kg (09/23/23) Current Weight: 158.7 kg (09/25/23) Dosing Weight: 158.2 kg (09/22/23) Current Weight: 158 kg (09/24/23) general: well appearing, no distress cardiac: rrr lungs: ctabl Code Status No qualifying data available. Admission Date 09/18/23 Discharge Date 09/25/23 Patient Instructions Take lasix 40mg daily starting 09/26. Take coumadin 2.5 daily and follow up with your doctor for an INR. Follow up with all doctors involved in your care. Medications New Prescription empagliflozin (Jardiance 10 mg oral tablet)1 tab(s) by mouth once a day (in the morning) for 30 Days. Refills: 1. furosemide (Lasix 40 mg oral tablet)1 tab(s) by mouth every day for 30 Days. Refills: 1. Changed warfarin (warfarin 5 mg oral tablet)0.5 tab(s) by mouth every 48 hours for 30 Days. as directed. Refills: 11. Unchanged amiodarone (amiodarone 200 mg oral tablet)1 tab(s) by mouth once a day. fluticasone/umeclidinium/vilanterol (Trelegy Ellipta 100 mcg-62.5 mcg-25 mcg/inh inhalation powder)1 puff(s) by inhalation once a day. at the same time every day. Following administration, rinse mouth with water after use (do not swallow).. Refills: 11. metoprolol (Lopressor 25mg--USE metoprolol tartrate 25 mg oral tablet)two (2) times a day. senna (senna (sennosides) 8.6 mg oral tablet)2 tab(s) by mouth two (2) times a day as needed as needed for constipation. Refills: 3. triamcinolone topical (triamcinolone 0.1% topical cream)1 application Topical two (2) times a day. Discontinued cephalexin (cephalexin 500 mg oral capsule) clindamycin topical (clindamycin 1% topical lotion)1 application Topical two (2) times a day. ketoconazole topical (ketoconazole 2% topical shampoo)USE A WASH TO GROIN FOLDS ONCE DAILY FOR TWO WEEKS THEN DECREASE TO 2-3X WEEKLY FOR MAINTENANCE. Misc Medication (PURELAX 17 GRAM/DOSE POWDER (GRAM))1cup powder by mouth once a day as needed Constipation. olodaterol-tiotropium (Stiolto Respimat 60 ACT 2.5 mcg-2.5 mcg/inh inhalation aerosol)2 puff(s) by inhalation every 24 hours. replace order for Trelegy due to insurance.. Refills: 11. oxyCODONE (oxyCODONE 5 mg oral tablet ( IMMEDIATE release ))1 tab(s) by mouth every 8 hours as needed as needed for pain. Refills: 0. Follow Up Follow Up with LIAN BERNARD MD When:In 3 weeks [facility] [facility] [address] [address] [phone] Follow Up with ANDI STINSON MD, Internal Medicine When:In 3 weeks Where:[address] [facility] [place] [place] [address]- Follow Up with NOAH SEPULVEDA MD When:In 2 weeks Where:[address] [place] [address]- [phone] Follow Up with EMILIO LOPEZ MD When:In 2 weeks Where:[address] [place] [address]- [phone] Follow Up with MERLY ARAIZA MD When:In 2 weeks Where:[address] [place] [address]- Follow Up with PROSPER MANJARREZ DO When:Within 1-2 days Where:[address] [facility] [place] [address]- Additional Information: Please call the office to schedule a hospital follow-up appointment. Follow Up Appointments No qualifying data available. Follow Up Labs/Studies Discharge Labs Discharge Outpatient Labwork - Ordered -- BMP BMP, Mg level, Acute heart failure exacerbation, Results Notify to: PROSPER MANJARREZ DO, 09/25/23 14:09:00 EDT Discharge Studies No Follow-up Studies Discharge Diet Discharge Diet - Ordered -- Type of Diet: Regular, 09/25/23 14:09:00 EDT Discharge Activity Discharge Activity - Ordered -- Resume your pre-hospitalization activity, 09/25/23 14:09:00 EDT Condition on Discharge fair Discharge Disposition home Information Provided To patient Time Spent 50min [1] Echocardiogram, Adult - CV; HathornePattie 09/15/2023 13:58 EDT Digitally Signed by PRISCILLA BULL MD on 09/25/2023 06:16 PM [id number]iology Progress note Date of Service 09/25/2023 negative except for what was mentioned Chief Complaint 43-year-old man with renal cell carcinoma s/p nephrectomy, on nivolumab immunotherapy, large PE s/pEKOS 07/2022 with transfer to for further care, on warfarin, who is admitted to the hospital 09/18/2023 for respiratory failure and cellulitis of the scrotum and abdominal wall, respiratory failure, noted to have a recent admission at [facility] for cellulitis. Heart failure cardiology was consulted to manage heart failure, the patient did well on furosemide infusion and pushes, continues to diurese well without diuretics, RHC done 09/21/2023, pending final report. RAP 18 RV pressure 64/18 PAP 64/26 (35) PCWP 20 Chest imaging reviewed, no significant pulmonary edema on CT and x-ray on different occasions. Recent VQ scan 09/18/2023 shows moderate size perfusion defect on the right lung consistent with previous PE location. CTA shows no acute PE. TTE shows dilated right-sided chambers > left with abnormal septal motion, as well as notched RVO VTI. Recently patient had an episode of presyncope at [facility]. Subjective Denies chest pain, worsening shortness of breath, pain or fever. No over night events. No new complaints. Recent imaging, diagnostics and labs reviewed. Objective Vitals and Measurements T: 36.4 C (Oral) TMIN: 36.4 C (Oral) TMAX: 37.2 C (Oral) HR: 56 (Apical) RR: 18 BP: 138/68 SpO2: 92% WT: 158.7 kg Intake and Output 7AM Yesterday to 7AM Today Intake and Output (Last 24 hours) Intake Oral Intake 590.00 Output Urinary Catheter Output: 5275.00 Stool Count 0.00 Total Summary Total Intake 590.00 Total Output 5275.00 Fluid Balance -4685.00 Physical Exam General Appearance: Appears to be stable Head: Atraumatic and normocephalic EENT: EOMI, PERRLA Neck: No thyromegaly, No JVD. Cardiac: S1 and S2 normal. RRR. Lungs: Good air entry bilaterally. Abdomen: Soft, nontender, nondistended. Musculoskeletal: Full range of motion upper and lower extremities. Extremities: No lower extremity pitting edema bilaterally. Weight Current Weight Dosing Weight: 163.7 kg (09/23/23) Current Weight: 158.7 kg (09/25/23) Dosing Weight: 158.2 kg (09/22/23) Current Weight: 158 kg (09/24/23) Medications Medications (26) Active Scheduled: (13) albuterol - ipratropium 2.5 mg-0.5 mg/3 mL Inhal Sejal UD 3 mL, Inhalation, QIDRT amiodarone 200 mg tablet 200 mg 1 tab(s), Oral, qDay budesonide 0.25 mg/2 mL Susp UD 0.25 mg 2 mL, Inhalation, BIDRT fluticasone nasal 0.05 mg/inh Polk 100 mcg 2 spray(s), Nostril, each, BID furosemide 40 mg/4 mL vial 40 mg 4 mL, IV Push, BID magnesium oxide 400 mg Tablet 400 mg 1 tab(s), Oral, BID metoprolol succinate 25 mg ER tablet 25 mg 1 tab(s), Oral, BID Nicoderm patch REMOVAL 1 EA, Miscellaneous, q24h nicotine 21 mg/24 hr ER patch 21 mg 1 patch(es), Transdermal, q24h No metformin for 48 hrs post contrast 1 EA, Miscellaneous, Unscheduled senna 8.6 mg Tablet 8.6 mg 1 tab(s), Oral, BID triamcinolone topical 0.1% Cream 15 Gram(s) 1 julia, Topical, BID warfarin 2.5 mg tablet 2.5 mg 1 tab(s), Oral, qDay Continuous: (0) PRN: (13) acetaminophen 325 mg Tablet 650 mg 2 tab(s), Oral, q4h acetaminophen-HYDROcodone 325-10 mg tablet 1 tab(s), Oral, q4h acetaminophen-HYDROcodone 325-5 mg tablet 1 tab(s), Oral, q4h albuterol - ipratropium 2.5 mg-0.5 mg/3 mL Inhal Sejal UD 3 mL, Inhalation, q4hRT benzonatate 100 mg Capsule 200 mg 2 cap(s), Oral, TID dextrose 50% Solution Disp syringe 50 mL 12.5 gram(s) 25 mL, IV Push, AsDirected lactulose 20 g/30 mL UD cup 20 gram(s) 30 mL, Oral, qDay melatonin 3 mg tablet 3 mg 1 tab(s), Oral, qHS melatonin 3 mg tablet 3 mg 1 tab(s), Oral, qHS ondansetron 2 mg/ 1 mL 2 mL INJ 4 mg 2 mL, IV Push, q4h polyethylene glycol 3350 - UD packet 17 gram(s) 15 mL, Oral, qDay senna 8.6 mg Tablet 17.2 mg 2 tab(s), Oral, BID sodium chloride nasal 0.65% [place] 2 spray(s), Nostril, each, q2h Lab Results 09/24 05:35 WBC: 12.0 H Hgb: 14.2 Hct: 44.8 Platelet: 206 Neutrophil %: 78.5 H Protime: 38.3 H PT International Ratio: 3.3 Glucose Level: 112 H Sodium Level: 140 Potassium Level: 4.3 BUN: 36.0 H Creatinine Lvl (s): 1.51 H 09/23 06:05 WBC: 10.2 Hgb: 14.4 Hct: 43.5 Platelet: 189 Neutrophil %: 91.2 H Protime: 30.2 H PT International Ratio: 2.6 Glucose Level: 134 H Sodium Level: 139 Potassium Level: 4.1 BUN: 31.0 H Creatinine Lvl (s): 1.46 H EKG No qualifying data available. 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, 3, and 4 #CTA negative for PE #Elevated proBNP #Moderate TR #MARIA ESTHER, improving #Cellulitis of scrotum and abdomen #URI #Right pleural effusion, small #Paroxysmal atrial fibrillation/atrial flutter [07/2022, on amiodarone, lopressor & Coumadin andfor PE], BONNIE on 07/2022 showing multiple irregular masses in the RA cavity concerning for thrombus [transferred to [place] had a clot removal], #Hx of PE [right PE] with acute clot burden status post EKOS [on Coumadin] #Hx of RCC, metastatic status post left nephrectomy #Hx of AKHIL #Hx of COPD - Latest EKG reviewed - Latest EKG reviewed - Latest imaging reviewed - Latest echocardiogram reviewed - Latest ischemic work-up reviewed New onset acute decompensated heart failure with preserved ejection fraction Would recommend initiating Lasix 40 p.o. daily from September 27, 2023 onwards to allow for diuretic holiday given slow uptrend of creatinine in order to prevent MARIA ESTHER Recommend BMP in 3 to 5 days Follow-up with CHF team, Dr. Sepulveda, as an outpatient Given concern for WHO group 4 pulmonary hypertension in the setting of abnormal VQ scan, would recommend continued follow-up with pulmonology as an outpatient we will then refer patient to pulmonary hypertension center as an outpatient Consider Aldactone to optimize GDMT therapy as an outpatient. Hold off on Jardiance due to history of scrotal cellulitis Thank you for allowing us to participate in the care of this patient. Case discussed with attendingphysician. We will sign off. Do not hesitate to contact us if you have any questions or concerns Digitally Signed by CLIFF LARSEN MD on 09/25/2023 05:04 PM [id number] Discharge instructions Patient Education 09/25/2023 14:47:31 Heart Failure, Diagnosis, Tgzl-lu-Kmhg Heart Failure, Diagnosis Heart failure means that your heart is not able to pump blood in the right way. This makes it hard for your body to work well. Heart failure is usually a long- term (chronic) condition. You must take good care of yourself and follow your treatment plan from your doctor. What are the causes? This condition may be caused by: High blood pressure. Build up of cholesterol and fat in the arteries. Heart attack. This injures the heart muscle. Heart valves that do not open and close properly. Damage of the heart muscle. This is also called cardiomyopathy. Lung disease. Abnormal heart rhythms. What increases the risk? The risk of heart failure goes up as a person ages. This condition is also more likely to develop in people who: Are overweight. Are male. Smoke or chew tobacco. Abuse alcohol or illegal drugs. Have taken medicines that can damage the heart. Have diabetes. Have abnormal heart rhythms. Have thyroid problems. Have low blood counts (anemia). What are the signs or symptoms? Symptoms of this condition include: Shortness of breath. Coughing. Swelling of the feet, ankles, legs, or belly. Losing weight for no reason. Trouble breathing. Waking from sleep because of the need to sit up and get more air. Rapid heartbeat. Being very tired. Feeling dizzy, or feeling like you may pass out (faint). Having no desire to eat. Feeling like you may vomit (nauseous). Peeing (urinating) more at night. Feeling confused. How is this treated? This condition may be treated with: Medicines. These can be given to treat blood pressure and to make the heart muscles stronger. Changes in your daily life. These may include eating a healthy diet, staying at a healthy body weight, quitting tobacco and illegal drug use, or doing exercises. Surgery. Surgery can be done to open blocked valves, or to put devices in the heart, such as pacemakers. A donor heart (heart transplant). You will receive a healthy heart from a donor. Follow these instructions at home: Treat other conditions as told by your doctor. These may include high blood pressure, diabetes, thyroid disease, or abnormal heart rhythms. Learn as much as you can about heart failure. Get support as you need it. Keep all follow-up visits as told by your doctor. This is important. Summary Heart failure means that your heart is not able to pump blood in the right way. This condition is caused by high blood pressure, heart attack, or damage of the heart muscle. Symptoms of this condition include shortness of breath and swelling of the feet, ankles, legs, or belly. You may also feel very tired or feel like you may vomit. You may be treated with medicines, surgery, or changes in your daily life. Treat other health conditions as told by your doctor. This information is not intended to replace advice given to you by your health care provider. Make sure you discuss any questions you have with your health care provider. Document Released: 11/08/2008 Document Revised: 04/19/2019 Document Reviewed: 04/19/2019 [employer] Patient Education 2020 [employer]. Follow Up Care 09/17/2023 12:01:06 With:LIAN BERNARD MD Address: [address] [place] [address] [address] [place] [address] [phone] When:Within 3 Week(s) With:ANDI STINSON MD, Internal Medicine Address: [address] [facility] [place], [place] [id number]- When:Within 3 Week(s) With:NOAH SEPULVEDA MD Address: [address] [place] [address] [address] [facility] [address] [phone] When:Within 2 Week(s) With:EMILIO LOPEZ MD Address: [address] [place] [address] [address] [place] [address] [phone] When:Within 2 Week(s) With:MERLY ARAIZA MD Address: [address] [facility] [address] [facility] [place] [address]- When:Within 2 Week(s) With:PROSPER MANJARREZ DO Address: [address] [place] [address]- When:1-2 days Comments:Please call the office to schedule a hospital follow-up appointment. [facility] 08-12-2024 Note Discharge Instructions Thank you for allowing [facility] to assist you with your healthcare needs. The following is importantdischarge information regarding your hospital visit. Your Care Team PROSPER MANJARREZ DO What to do next Instructions From Your Doctor Take lasix 40mg daily starting 09/26. Take coumadin 2.5 daily and follow up with your doctor for an INR. Follow up with all doctors involved in your care. Scheduled Follow-Up Appointments Appointment Type When With Where Contact Information StatusyyCT Abdomen and Pelvis w/ Contrast 3 10/12/2023 10:30 AM EDT [facility] [phone] Confirmed yyCT Chest w/ Contrast 3 10/12/2023 11:00 AM EDT [facility] [phone] Confirmed INF Labwork 10/19/2023 12:15 PM EDT Infusion Therapy Confirmed PALL OV Follow Up 10/19/2023 01:00 PM EDT [facility] Confirmed HEM ONC OV Follow Up w/Active Treatment 10/19/2023 01:30 PM EDT BHAVIK TRIANA MD [facility] Confirmed INF Chemo: Infusion 60 min (1 hour) 10/19/2023 02:00 PM EDT Infusion Therapy Confirmed [facility] Annual 11/30/2023 03:30 PM EDT PROSPER MANJARREZ DO [facility] [address] [place] [address] Confirmed Follow Up Appointments Follow Up with LIAN BERNARD MD When:In 3 weeks Where:[address] [facility] [address] [place] [address] [phone] Follow Up with ANDI STINSON MD, Internal Medicine When:In 3 weeks Where:[address] [facility] [place] [place] [address]- Follow Up with NOAH SEPULVEDA MD When:In 2 weeks Where:[address] [facility] [address] [place] [address]- [phone] Follow Up with EMILIO LOPEZ MD When:In 2 weeks Where:[address] [facility] [address] [place] [address]- [phone] Follow Up with MERLY ARAIZA MD When:In 2 weeks Where:[address] [facility] [address] [place] [address]- Follow Up with PROSPER MANJARREZ DO When:Within 1-2 days Where:[address] [facility] [place] [address]- Additional Information: Please call the office to schedule a hospital follow-up appointment. The Following Activity and Diet Have Been Ordered for You Discharge Activity - Ordered -- Resume your pre-hospitalization activity, 09/25/23 14:09:00 EDT Discharge Diet - Ordered -- Type of Diet: Regular, 09/25/23 14:09:00 EDT The Following Equipment Has Been Ordered for You No qualifying data available. The Following Treatments Have Been Ordered for You Discharge Labs Discharge Outpatient Labwork - Ordered -- BMP BMP, Mg level, Acute heart failure exacerbation, Results Notify to: PROSPER MANJARREZ DO, 09/25/23 14:09:00 EDT Discharge Radiology No qualifying data available. Other Therapies No qualifying data available. Post Acute Orders No qualifying data available. Someone Will Contact You Regarding These Home Health Referrals No home referrals have been ordered for you. No one will call you. Allergies penicillin Swelling Medications Please ask your primary doctor or pharmacist before taking any other medication not listed, including over the counter drugs, herbal medications, vitamins and or supplements as they may interact withyour home medications. What How Much When Why Instructions Last Dose New furosemide (Lasix 40 mg oral tablet) 1 tab(s) by mouth Every day Duration: 30 Days Refills: 1 Pickup at [facility]/pharmacy #[id number] Changed warfarin (warfarin 5 mg oral tablet) 0.5 tab(s) by mouth Every 48 hours Duration: 30 Days as directed Pickup at [facility]/pharmacy #[id number] Unchanged amiodarone (amiodarone 200 mg oral tablet) 1 tab(s) by mouth Once a day Unchanged fluticasone/ umeclidinium/ vilanterol (Trelegy Ellipta 100 mcg-62.5 mcg-25 mcg/ inh inhalation powder) 1 puff(s) by inhalation Once a day COPD - Chronic obstructive pulmonary disease at the same time every day. Following administration, rinse mouth with water after use (do not swallow). Unchanged metoprolol (Lopressor 25mg--USE metoprolol tartrate 25 mg oral tablet) Two (2) times a day Unchanged senna (senna (sennosides) 8.6 mg oral tablet) 2 tab(s) by mouth Two (2) times a day as needed for as needed for constipation Unchanged triamcinolone topical (triamcinolone 0.1% topical cream) 1 application Topical Two (2) times a day Pharmacy Information [facility]/pharmacy #[id number]: [address] [place], [place] [id number] [phone] What How Much When Why Comments Stop Taking cephalexin (cephalexin 500 mg oral capsule) Stop Taking clindamycin topical (clindamycin 1% topical lotion) 1 application Topical Two (2) times a day Stop Taking ketoconazole topical (ketoconazole 2% topical shampoo) USE A WASH TO GROIN FOLDS ONCE DAILY FOR TWO WEEKS THEN DECREASE TO 2-3X WEEKLY FOR MAINTENANCE Stop Taking Misc Medication (PURELAX 17 GRAM/ DOSE POWDER (GRAM)) 1cup powder by mouth Once a day as needed for Constipation Stop Taking olodaterol-tiotropium (Stiolto Respimat 60 ACT 2.5 mcg-2.5 mcg/ inh inhalation aerosol) 2 puff(s) by inhalation Every 24 hours COPD without exacerbation replace order for Trelegy due to insurance. Stop Taking oxyCODONE (oxyCODONE 5 mg oral tablet ( IMMEDIATE release )) 1 tab(s) by mouth Every 8 hours as needed for as needed for pain Renal cancer Please take this list to your next doctor s visit. Bring all medications you take, including over the counter medications, herbals and other supplements with you to your doctor s visit. Patients and families are reminded to discard old lists and to update any records with all medication providers or retail pharmacies. Medication Leaflets furosemide (oral/injection) (fur [place] se mide) Furoscix, Lasix What is the most important information I should know about furosemide? You should not use this medicine if you are unable to urinate. Using more than your recommended dose will not make this medicine more effective. High doses of furosemide may cause irreversible hearing loss. Tell your doctor about all your other medicines. Some drugs should not be used with furosemide. What is furosemide? Furosemide is used to treat fluid retention (edema) in people with congestive heart failure, liver disease, or a kidney disorder such as nephrotic syndrome. Furosemide is also used to treat high blood pressure (hypertension). The Furoscix brand of furosemide is only used in adults. Furosemide may also be used for purposes not listed in this medication guide. What should I discuss with my healthcare provider before using furosemide? You should not use furosemide if you are allergic to it, if you are unable to urinate or have hepatic cirrhosis. You should not use Furoscix if you have ascites or have allergies to medical adhesives. Tell your doctor if you have ever had: an electrolyte imbalance (such as low levels of potassium or magnesium in your blood); enlarged prostate, bladder obstruction, or other urination problems; gout; lupus; diabetes; an allergy to sulfa drugs; kidney disease; or cirrhosis or other liver disease. Tell your doctor if you have an MRI (magnetic resonance imaging) or any type of scan using a radioactive dye that is injected into a vein. Contrast dyes and furosemide can harm your kidneys. It is not known if furosemide will harm an unborn baby. Tell your doctor if you are or plan to become . It may not be safe to breastfeed while using this medicine. Ask your doctor about any risk. Furosemide may slow breast milk production. How should I use furosemide? Follow all directions on your prescription label and read all medication guides or instruction sheets. Use the medicine exactly as directed. Furosemide oral is taken by mouth. Furosemide injection is given in a muscle, under the skin, or aditya vein. A healthcare provider will give you this injection if you are unable to take the medicine by mouth. Furoscix infusion lasts about 5 hours. Furoscix should not get wet. Do not bathe, shower, swim or exercise while wearing the infusor. Also do not apply any products such as lotions or creams in the area where the infusor is placed. It is not recommended to travel by car or airplane while using Furoscix. Also do not use the infusor within 12 inches of mobile phones, tablets, computers, or wireless accessories such as remote control, or [employer] devices. Do not reuse a needle, syringe or cartridge. Place them in a puncture-proof 'sharps' container and dispose of it following state or local laws. Keep out of the reach of children and pets. You may receive your first dose in a hospital or clinic setting if you have severe liver disease. Do not use more than your recommended dose. High doses of furosemide may cause irreversible hearingloss. Measure liquid medicine with the supplied measuring device (not a kitchen spoon). Doses are based on weight in children and teenagers. Your child's dose may change if the child gains or loses weight. Furosemide will make you urinate more often and you may get dehydrated easily. Follow your doctor'sinstructions about using potassium supplements or getting enough salt and potassium in your diet. This medicine can affect the results of certain medical tests. Tell any doctor who treats you that you are using furosemide. Your blood pressure will need to be checked often and you may need other medical tests. If you have high blood pressure, keep using this medicine even if you feel well. High blood pressure often has no symptoms. If you need surgery, tell the surgeon ahead of time that you are using furosemide. Store at room temperature away from moisture, heat, and light. Throw away any unused oral liquid after 90 days. What happens if I miss a dose? Furosemide is sometimes used only once, if you are not on a dosing schedule. If you are using the medication regularly, use the medicine as soon as you can, but skip the missed dose if it is almost time for your next dose. Do not use two doses at one time. What happens if I overdose? Seek emergency medical attention or call the Poison Help line at . Overdose symptoms may include feeling very thirsty or hot, heavy sweating, hot and dry skin, extreme weakness, or fainting. What should I avoid while using furosemide? Avoid getting up too fast from a sitting or lying position, or you may feel dizzy. Avoid becoming dehydrated. Follow your doctor's instructions about the type and amount of liquids you should drink while you are using furosemide. Drinking alcohol with this medicine can cause side effects. Furosemide could make you sunburn more easily. Avoid sunlight or tanning beds. Wear protective clothing and use sunscreen (SPF 30 or higher) when you are outdoors. If you have high blood pressure, ask a doctor or pharmacist before taking any medicines that can raise your blood pressure, such as diet pills or qjsky-tub-cwyv medicine. What are the possible side effects of furosemide? Get emergency medical help if you have signs of an allergic reaction (hives, difficult breathing, swelling in your face or throat) or a severe skin reaction (fever, sore throat, burning eyes, skin pain, red or purple skin rash with blistering and peeling). Call your doctor at once if you have: a light-headed feeling, like you might pass out; ringing in your ears, hearing loss; muscle spasms or contractions; pale skin, easy bruising, unusual bleeding; high blood sugar--increased thirst, increased urination, dry mouth, fruity breath odor; kidney problems--swelling, urinating less, feeling tired or short of breath; signs of liver or pancreas problems--loss of appetite, upper stomach pain (that may spread to your back), nausea or vomiting, dark urine, jaundice (yellowing of the skin or eyes); or signs of an electrolyte imbalance--increased thirst or urination, constipation, muscle weakness, leg cramps, numbness or tingling, feeling jittery, fluttering in your chest. Common side effects may include: diarrhea, constipation, loss of appetite; numbness or tingling; headache, dizziness; or blurred vision. This is not a complete list of side effects and others may occur. Call your doctor for medical advice about side effects. You may report side effects to FDA at 9-110-MXU-7812. What other drugs will affect furosemide? Sometimes it is not safe to use certain medicines at the same time. Some drugs can affect your blood levels of other drugs you use, which may increase side effects or make the medicines less effective If you also take sucralfate, take your furosemide dose 2 hours before or 2 hours after you take sucralfate. Tell your doctor about all your other medicines, especially: another diuretic, especially ethacrynic acid; methotrexate; chloral hydrate; lithium; phenytoin; an antibiotic; cancer medicine, such as cisplatin; heart or blood pressure medicine; or NSAIDs (nonsteroidal anti-inflammatory drugs)--aspirin, ibuprofen (Advil, Motrin), naproxen (Aleve), celecoxib, diclofenac, indomethacin, meloxicam, and others. This list is not complete. Other drugs may affect furosemide, including prescription and cmsn-bqs-kyiuiwv medicines, vitamins, and herbal products. Not all possible drug interactions are listed here. Where can I get more information? Your doctor or pharmacist can provide more information about furosemide. Remember, keep this and all other medicines out of the reach of children, never share your medicines with others, and use this medication only for the indication prescribed. Every effort has been made to ensure that the information provided by [employer]') is accurate, up-to-date, and complete, but no guarantee is made to that effect. Drug information contained herein may be time sensitive. [employer] information has been compiled for use by healthcare practitioners and consumers in the [place] and therefore [employer] does not warrant that uses outside of the [place] are appropriate, unless specifically indicated otherwise. [employer] drug information does not endorse drugs, diagnose patients or recommend therapy. [employer] drug information isan informational resource designed to assist licensed healthcare practitioners in caring for their p atients and/or to serve consumers viewing this service as a supplement to, and not a substitute for, the expertise, skill, knowledge and judgment of healthcare practitioners. The absence of a warningfor a given drug or drug combination in no way should be construed to indicate that the drug or drug combination is safe, effective or appropriate for any given patient. [employer] does not assume any responsibility for any aspect of healthcare administered with the aid of information [employer] provides. The information contained herein is not intended to cover all possible uses, directions, precautions, warnings, drug interactions, allergic reactions, or adverse effects. If you have questions about the drugs you are taking, check with your doctor, nurse or pharmacist. Copyright [employer]. Version: 20.. Revision Date: 07/25/2023. Education Materials Heart Failure, Diagnosis Heart failure means that your heart is not able to pump blood in the right way. This makes it hard for your body to work well. Heart failure is usually a long- term (chronic) condition. You must take good care of yourself and follow your treatment plan from your doctor. What are the causes? This condition may be caused by: High blood pressure. Build up of cholesterol and fat in the arteries. Heart attack. This injures the heart muscle. Heart valves that do not open and close properly. Damage of the heart muscle. This is also called cardiomyopathy. Lung disease. Abnormal heart rhythms. What increases the risk? The risk of heart failure goes up as a person ages. This condition is also more likely to develop in people who: Are overweight. Are male. Smoke or chew tobacco. Abuse alcohol or illegal drugs. Have taken medicines that can damage the heart. Have diabetes. Have abnormal heart rhythms. Have thyroid problems. Have low blood counts (anemia). What are the signs or symptoms? Symptoms of this condition include: Shortness of breath. Coughing. Swelling of the feet, ankles, legs, or belly. Losing weight for no reason. Trouble breathing. Waking from sleep because of the need to sit up and get more air. Rapid heartbeat. Being very tired. Feeling dizzy, or feeling like you may pass out (faint). Having no desire to eat. Feeling like you may vomit (nauseous). Peeing (urinating) more at night. Feeling confused. How is this treated? This condition may be treated with: Medicines. These can be given to treat blood pressure and to make the heart muscles stronger. Changes in your daily life. These may include eating a healthy diet, staying at a healthy body weight, quitting tobacco and illegal drug use, or doing exercises. Surgery. Surgery can be done to open blocked valves, or to put devices in the heart, such as pacemakers. A donor heart (heart transplant). You will receive a healthy heart from a donor. Follow these instructions at home: Treat other conditions as told by your doctor. These may include high blood pressure, diabetes, thyroid disease, or abnormal heart rhythms. Learn as much as you can about heart failure. Get support as you need it. Keep all follow-up visits as told by your doctor. This is important. Summary Heart failure means that your heart is not able to pump blood in the right way. This condition is caused by high blood pressure, heart attack, or damage of the heart muscle. Symptoms of this condition include shortness of breath and swelling of the feet, ankles, legs, or belly. You may also feel very tired or feel like you may vomit. You may be treated with medicines, surgery, or changes in your daily life. Treat other health conditions as told by your doctor. This information is not intended to replace advice given to you by your health care provider. Make sure you discuss any questions you have with your health care provider. Document Released: 11/08/2008 Document Revised: 04/19/2019 Document Reviewed: 04/19/2019 [employer] Patient Education 2020 [employer] Additional Information VACCINATE! IT SAVES LIVES! Members of the community who have not yet received the COVID-19 vaccine and would like to receive it can visit one of [facility] vaccine clinics. There are many vaccine clinic locations within the [facility]. For locations and available times, please visit [email or web address] It is important to note that some COVID mobile vaccine clinics are held outdoors and may be canceled in rainy or stormy conditions. To learn more about pediatric vaccinations (ages 5-11), we invite you to visit the [facility] webpage. [email or web address] learn more about the COVID-19 vaccine, we invite you to visit the CDC website for a list of frequently asked questions.https://www.cdc.gov/coronavirus/2019-ncov/vaccines/faq.html [facility] Patient Portal Access Instructions: Stay connected with your healthcare team and access your personal medical information anytime with the [facility] Patient Portal. Please follow the directions below to create your [facility] account: 1.Access the email account you provided upon registration to the hospital/physician office.2.Look for an invitation email from [facility].3.Open the email and access the invitation link: AcceptInvitation to [facility].4.Fill in the required delaney to create your account. To access your account, visit [email or web address]. Click the blue button labeled "Access Patient Portal" and then log in with the username and password that you created in the steps above. You will be able to view your test results, lab results, a summary of your visits, upcoming appointments and more. There is also a convenient messaging option where you can send secure messages to your p rovider. In addition, you will have the ability to download any documents or summaries to your computer and/or send the information securely to a physician. Remember that your healthcare information is confidential, so carefully consider who you will allowto register on the [facility] [employer] Patient Portal for access to your information. You can also access the [facility] Patient Portal on the [facility] julia. Simply click on "Patient Portal" and then log into your account. If you would like to receive a full copy of your medical records, please contact the [facility] Medical Records Department by calling [phone], Monday through Monday between 8 a.m. and 4:30 p.m. HOW TO SAFELY DISPOSE OF PRESCRIPTION MEDICATIONS Please use one of the following methods to safely dispose of your unused medications. 1.Use a drug disposal kit: the drug disposal pouch allows you to safely discard your old and unuseddrugs. Ask your nurse to give you one when you are discharged.2.Visit a local take-back location: Many local pharmacies and police departments have programs that collect old and unwanted prescriptiondrugs. Call your local pharmacy or go to http://Huan Xiong.Oddslife/3L4Mu3x to find one close to you.3.Make use of household items: Use cat litter or old coffee grounds to dispose medications if other options arenot available. Mix your drugs with these household products, seal them in an airtight container andthrow it into the garbage. Call [facility]: [phone] to be sure your drugs can be disposed of in this way. Some medicines may require a different approach.4.Never flush your medications down the toilet. IF YOU HAVE BEEN PRESCRIBED AN OPIOID FOR PAIN If you have been prescribed an opioid (such as hydrocodone, oxycodone or morphine), it is critical to understand the possible side effects and risks of opioid pain medications. Even when taken as directed, opioids can have several side effects including: Tolerance, meaning you might need to take more of a medication for the same pain relief. Nausea, vomiting and/or constipation. Sleepiness, dizziness, dry mouth, confusion, depression or itching. Physical dependence, meaning you have withdrawal symptoms when a medication is stopped, can develop within a few days. KNOW YOUR RESPONSIBILITIES It is important to know exactly how much and how often to take the opioid pain medications you are prescribed. Never take opioids in higher amounts or more often than prescribed. Do not combine opioids with alcohol or other drugs that cause drowsiness, such as benzodiazepines, also known as benzos, including diazepam and alprazolam, muscle relaxants or sleep aids. Never sell or share prescription opioids. This is illegal. Store opioids in a secure place and out of reach of others (including children, family, friends and visitors). The last page of this document has been signed and retained as a CHART COPY. Signatures Patient Education Materials Heart Failure, Diagnosis, [facility] Medication Leaflets furosemide (oral/injection) My discharge plan and instructions have been reviewed and explained to me and IJESSICA DAVID D understand my current condition and have read and understand these discharge instructions. I have received a written copy of the plan/instructions. If I have questions, I am aware that I should contact my doctor. Patient/Record Keeper Signature: Date/Time: Relationship to Patient: Witness Name/Signature: [facility]Time[id number] Neph[facility] Progress note Date of Service September 25, 2023 Subjective No new complaints. Denies shortness of breath at rest. No orthopnea. Excellent urine output. Appetite fair. Objective Vitals and Measurements T: 36.4 C (Oral) TMIN: 36.4 C (Oral) TMAX: 37.2 C (Oral) HR: 56 (Apical) RR: 18 BP: 138/68 SpO2: 92% WT: 158.7 kg Intake and Output 7AM Yesterday to 7AM Today Intake and Output (Last 24 hours) Intake Oral Intake 590.00 Output Urinary Catheter Output: 5275.00 Stool Count 0.00 Total Summary Total Intake 590.00 Total Output 5275.00 Fluid Balance -4685.00 Physical Exam General: No distress on 2 L nasal cannula HEENT: Mucosa was moist, sclera anicteric, extraocular muscles intact, JVD present Lungs: No crackles on pulmonary exam Heart: Regular with no murmurs rubs or gallops Abdomen: Positive bowel sounds, soft, no palpable masses Extremities: Improved edema. Now has wrinkles in lower extremities Skin: No rashes, normal turgor Weight Current Weight Dosing Weight: 163.7 kg (09/23/23) Current Weight: 158.7 kg (09/25/23) Dosing Weight: 158.2 kg (09/22/23) Current Weight: 158 kg (09/24/23) Medications Medications (26) Active Scheduled: (13) albuterol - ipratropium 2.5 mg-0.5 mg/3 mL Inhal Sejal UD 3 mL, Inhalation, QIDRT amiodarone 200 mg tablet 200 mg 1 tab(s), Oral, qDay budesonide 0.25 mg/2 mL Susp UD 0.25 mg 2 mL, Inhalation, BIDRT fluticasone nasal 0.05 mg/inh [place] 100 mcg 2 spray(s), Nostril, each, BID furosemide 40 mg/4 mL vial 40 mg 4 mL, IV Push, BID magnesium oxide 400 mg Tablet 400 mg 1 tab(s), Oral, BID metoprolol succinate 25 mg ER tablet 25 mg 1 tab(s), Oral, BID Nicoderm patch REMOVAL 1 EA, Miscellaneous, q24h nicotine 21 mg/24 hr ER patch 21 mg 1 patch(es), Transdermal, q24h No metformin for 48 hrs post contrast 1 EA, Miscellaneous, Unscheduled senna 8.6 mg Tablet 8.6 mg 1 tab(s), Oral, BID triamcinolone topical 0.1% Cream 15 Gram(s) 1 julia, Topical, BID warfarin 2.5 mg tablet 2.5 mg 1 tab(s), Oral, qDay Continuous: (0) PRN: (13) acetaminophen 325 mg Tablet 650 mg 2 tab(s), Oral, q4h acetaminophen-HYDROcodone 325-10 mg tablet 1 tab(s), Oral, q4h acetaminophen-HYDROcodone 325-5 mg tablet 1 tab(s), Oral, q4h albuterol - ipratropium 2.5 mg-0.5 mg/3 mL Inhal Sejal UD 3 mL, Inhalation, q4hRT benzonatate 100 mg Capsule 200 mg 2 cap(s), Oral, TID dextrose 50% Solution Disp syringe 50 mL 12.5 gram(s) 25 mL, IV Push, AsDirected lactulose 20 g/30 mL UD cup 20 gram(s) 30 mL, Oral, qDay melatonin 3 mg tablet 3 mg 1 tab(s), Oral, qHS melatonin 3 mg tablet 3 mg 1 tab(s), Oral, qHS ondansetron 2 mg/ 1 mL 2 mL INJ 4 mg 2 mL, IV Push, q4h polyethylene glycol 3350 - UD packet 17 gram(s) 15 mL, Oral, qDay senna 8.6 mg Tablet 17.2 mg 2 tab(s), Oral, BID sodium chloride nasal 0.65% [place] 2 spray(s), Nostril, each, q2h Lab Results 09/24 05:35 WBC: 12.0 H Hgb: 14.2 Hct: 44.8 Platelet: 206 Neutrophil %: 78.5 H Protime: 38.3 H PT International Ratio: 3.3 Glucose Level: 112 H Sodium Level: 140 Potassium Level: 4.3 BUN: 36.0 H Creatinine Lvl (s): 1.51 H 09/23 06:05 WBC: 10.2 Hgb: 14.4 Hct: 43.5 Platelet: 189 Neutrophil %: 91.2 H Protime: 30.2 H PT International Ratio: 2.6 Glucose Level: 134 H Sodium Level: 139 Potassium Level: 4.1 BUN: 31.0 H Creatinine Lvl (s): 1.46 H EKG No qualifying data available. Assessment/Plan 1. Chronic kidney disease stage IIIa: Patient has excellent urine output. Has had greater than 6 L in the last several days. This is on a moderate amount of Lasix 40 mg IV twice daily. Continue diuresis as long as blood pressure and kidney function will tolerate. Patient does have a known solitary kidney due to prior nephrectomy. 2. Heart failure with preserved ejection fraction and known pulmonary hypertension: The patient hadsignificant edema and fluid overload. Has had excellent diuresis. Now has evidence of wrinkling in his lower extremities. Lungs are clear on exam. Still JVD. Keep negative I's and O's as long as lowell ated by blood pressure and kidney function. Digitally Signed by ABIGAIL MORRIS MD on 09/25/2023 10:49 AM [id number] Heart failure Consult note Date of Service 09/25/23 Reason for Consultation CHF/pulmonary hypertension management Referring Physician General Cardiology History of Present Illness 43-year-old male with past medical history of paroxysmal atrial fibrillation/atrial flutter on amiodarone and Eliquis, history of BONNIE in July 2022 showing multiple irregular mass in the RA concerningfor thrombus for which patient was transferred to [facility] for clot removal and EKOS, mild n onobstructive CAD, history of alcohol abuse, history of tobacco abuse, history of metastatic RCC status post left-sided nephrectomy on radiation and chemotherapy, T11 vertebral body fracture, AKHIL noton CPAP, COPD, and morbid obesity presented to the emergency department at 09/12/2023 for complaintsof shortness of breath. Patient was admitted [facility] for further management. Patient was then transferred to [facility] on 09/18/2023 for further management. Cardiology team consulted for CHF management and concern for right-sided heart failure. Patient was placed on IV diuresis. Nephrology and pulmonology also consulted during stay for management. Patient underwent right heart cardiac catheterization during stay which showed right atrial pressure of 18, RV pressure 64/18, pulmonary pressure 64/26, and wedge of 20. CHF team consulted for CHF and pulmonary hypertension management.Patient is currently being diuresed and optimized on goal-directed medical therapy. Subjective No acute events overnight No new complaints Patient urine output 6000 mL in 24 hours Patient net -5200 mg in 24 hours Review of Systems Per HPI, Complete ROS otherwise negative Physical Exam Vitals and Measurements T: 36.4 C (Oral) TMIN: 36.4 C (Oral) TMAX: 37.2 C (Oral) HR: 56 (Apical) RR: 18 BP: 138/68 SpO2: 92% WT: 158.7 kg Weight Current Weight Dosing Weight: 163.7 kg (09/23/23) Current Weight: 158.7 kg (09/25/23) Dosing Weight: 158.2 kg (09/22/23) Current Weight: 158 kg (09/24/23) General: AAOX3, NAD, morbidly obese male HEENT: Anicteric sclera, MMM Neck: Trachea midline, no JVD appreciated CVS: RRR, normal S1/S2, scar on sternum, right chest Chemo-Port Lung: CTAB, no wheezes/rhonchi/rales Abd: Soft, NT/ND Extrem: WWP, wrinkled bilateral lower extremity with trace edema Skin: Warm, Intact Neuro: AAOX3, spontaneous movement of all extremities Psych: Appropriate mood & affect Lab Results CMP 09/25/23 05:35 09/24/23 06:05 09/23/23 06:11 Glucose Level 112 mg/dL H 134 mg/dL H 107 mg/dL Sodium Level 140 mEq/L 139 mEq/L 138 mEq/L Potassium Level 4.3 mEq/L 4.1 mEq/L 3.9 mEq/L Chloride 101 mEq/L 100 mEq/L 96 mEq/L L CO2 38 mEq/L H 36 mEq/L H 40 mEq/L C Electrolyte Balance 1.0 mEq/L L 3.0 mEq/L L 2.0 mEq/L L BUN 36.0 mg/dL H 31.0 mg/dL H 27.0 mg/dL H Creatinine Lvl (s) 1.51 mg/dL H 1.46 mg/dL H 1.48 mg/dL H BUN/Creatinine Ratio 23.8 ratio H 21.2 ratio 18.2 ratio Calcium Lvl 8.8 mg/dL 9.2 mg/dL 8.9 mg/dL CBC 09/25/23 05:35 09/24/23 06:05 09/23/23 06:11 Hct 44.8 % 43.5 % 42.9 % Hgb 14.2 G/dL 14.4 G/dL 14.1 G/dL MCH 30.7 pg 32.2 pg 31.6 pg MCHC 31.8 G/dL L 33.1 G/dL 33.0 G/dL MCV 96.5 fL 97.3 fL 95.9 fL MPV 8.3 fL 8.3 fL 7.7 fL Platelet 206 10^3/mcL 189 10^3/mcL 175 10^3/mcL RBC 4.64 10^6/mcL 4.47 10^6/mcL L 4.47 10^6/mcL L RDW 16.4 % H 17.5 % H 16.9 % H WBC 12.0 10^3/mcL H 10.2 10^3/mcL 7.0 10^3/mcL Cardiac Enzymes Cardiac Enzymes High Sensitivity Troponin I: 24 ng/L (09/16/23 05:24:00) N-Terminal proBNP: 1240 pg/mL High (09/24/23 06:05:00) Lipids No qualifying data available. Imaging Results and Diagnostics XR Chest 1 View Result Date: September 25, 2023 Verified By: PAIGE RAY MD CLINICAL STATEMENT: IMPRESSION: No vascular congestion. Persistent small right pleural effusion and basilaratelectasis unchanged. CT Angiography Chest w/ Contrast Result Date: September 19, 2023 Verified By: RACHELL DENNIS MD CLINICAL STATEMENT: IMPRESSION: 1. No evidence for pulmonary embolism.2. Stable T11 compression deformity.3. Mediastinal adenopathy is very similar to the prior study.4. New small right pleural effusion. NM Pulmonary Perfusion Imaging Result Date: September 18, 2023 Verified By: FABIAN NEWELL MD CLINICAL STATEMENT: IMPRESSION: Perfusion only: Intermediate probability of pulmonary embolism. XR Chest 2 Views Result Date: September 18, 2023 Verified By: PAIGE RAY MD CLINICAL STATEMENT: IMPRESSION: There is right basilar atelectasis and probably small right pleural effusionsimilar to or slightly improved from the earlier chest radiograph. Transthoracic Echocardiography Study date: 09/15/2023 Study Time: 02:33 PM Summary: 1. Procedure narrative: Transthoracic echocardiography was performed. Image quality was poor. The study was technically limited due to body habitus. 8 ml of intravenous contrast (Definity) was administered to opacify the LV. 2. Left ventricle: The cavity size is normal. Wall thickness is mildly increased. Systolic functionis normal. The estimated ejection fraction is 55-60%. Regional wall motion abnormalities cannot be excluded. Unable to assess diastolic function. 3. Aortic valve: Thickening, consistent with sclerosis. 4. Right ventricle: The cavity size is moderately to severely increased. Systolic function is reduced. Systolic pressure is increased. The RV systolic pressure by Doppler is 60 mm Hg. 5. Tricuspid valve: There is moderate regurgitation. 6. Right atrium: The atrium is dilated. The estimated right atrial pressure is 15 mm Hg. 7. Inferior vena cava: The IVC is dilated. Study data: Patient unit: RENE. Patient room number: 0234. Transthoracic echocardiography. M-mode, complete 2D, complete spectral Doppler, and color Doppler. Study status: Routine. Patient status: Inpatient. Objective: Edema, increased shortness. Location: Echo laboratory. Procedure room # 234. Procedure: Transthoracic echocardiography was performed. Image quality was poor. The study was technically limited due to body habitus. 8 ml of intravenous contrast (Definity) was administered to opacify the LV. Left ventricle: The cavity size is normal. Wall thickness is mildly increased. Systolic function isnormal. The estimated ejection fraction is 55-60%. Regional wall motion abnormalities cannot be excluded. The wall mass is 202 g. The wall mass index is 66 g/m . Unable to assess diastolic function. Ventricular septum: There is diastolic flattening and systolic flattening. Left atrium: Not well visualized. The volume index by biplane method is 25 ml/m . Right ventricle: The cavity size is moderately to severely increased. Systolic function is reduced.Systolic pressure is increased. The RV systolic pressure by Doppler is 60 mm Hg. Right atrium: The atrium is dilated. The estimated right atrial pressure is 15 mm Hg. Mitral valve: Not well visualized. The pressure half-time is 83 ms. The peak E/A ratio is 1.42. Thevalve area (LVOT continuity) is 2.4 cm . Doppler: There is no significant regurgitation. The mean diastolic gradientis 2 mm Hg. The valve area by pressure half-time is 2.7 cm . Aortic valve: The valve is trileaflet. Thickening, consistent with sclerosis. Cusp separation is normal. The peak systolic velocity is 1.5 m/sec. The systolic velocity-time integral is 25.5 cm. The mean systolic gradient is 4 mm Hg. The LVOT to aortic valve VTI ratio is 0.83. The valve area by VTI is 2.6 cm . The valve area by peak velocity is 2.1 cm . Doppler: Transvalvular velocity is within the normal range. There is no stenosis. There is no regurgitation. Tricuspid valve: Not well visualized. The regurgitant peak velocity is 3.4 m/sec. Doppler: There ismoderate regurgitation. Pulmonic valve: Not well visualized. The peak systolic velocity is 0.98 m/sec. 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, 3, and 4 #CTA negative for PE #Elevated proBNP #Moderate TR #MARIA ESTHER, improving #Cellulitis of scrotum and abdomen #URI #Right pleural effusion, small #Paroxysmal atrial fibrillation/atrial flutter [07/2022, on amiodarone, lopressor & Coumadin andfor PE], BONNIE on 07/2022 showing multiple irregular masses in the RA cavity concerning for thrombus [transferred to [place] had a clot removal], #Hx of PE [right PE] with acute clot burden status post EKOS [on Coumadin] #Hx of RCC, metastatic status post left nephrectomy #Hx of AKHIL #Hx of COPD - Latest EKG reviewed - Latest EKG reviewed - Latest imaging reviewed - Latest echocardiogram reviewed - Latest ischemic work-up reviewed Recommendations: - Patient's volume status has improved during stay - All testing done during stay reviewed. I am concerned given positive VQ scan done during stay that patient has underlying CTEPH which is contributing to his pulmonary hypertension. Outpatient will consider riociguat and evaluation by [facility] pulmonary hypertension team for possible pulmonary artery angiography and consideration of advanced therapies - Salt/Water restriction (<2g/d, <2L/d respectively), daily weight, strict I+Os - Monitor & replace electrolytes as needed, goal K >4 mEq/L, Mg >2 mg/dL - Inpatient CHF regimen ACEi/ARB/ARNI: None After/Pre: None BBlockade: Metoprolol succinate 25 mg twice daily Coronary: None Diuretic: IV furosemide 40 mg twice daily, consider PO furosemide 40 mg twice daily on discharge MRAntag: None SGLT2: None Others: Amiodarone 200 mg daily Device: None Advanced Therapies: None - CHF team will sign off at this time Feel free to repage if needed Obtain outpatient labs including CBC, BMP, magnesium level within 3 days of discharge Follow-up with CHF team (Dr. Sepulveda) as outpatient in 1 week from discharge Patient seen and discussed with Dr. Yessi Melgar II, MD PGY- Cardiovascular Disease Fellow Pager: [phone] Problem List/Past Medical History Ongoing Alcohol abuse Left renal mass. 9.6-cm. With perinephric fat invasion. With lytic bony lesion and pulmonary nodules concerning for mets. BS, 07/2020 - neg. CT brain, 07/2020 - neg. S/P Radical nephrectomy 08/14/20. Metastatic renal cell carcinoma. S/P Left cytoreductive nephrectomy 08/14/20. Final path - ccRCC withsarcomatoid features. Morbid obesity due to excess calories No chronic diseases present T11 vertebral fracture Tobacco abuse Viral gastroenteritis Cigarette smoker Active Lung nodule, multiple Active Marijuana user Active Secondary malignant neoplasm of bone (disorder) Active Historical Renal cell carcinoma (disorder) Active Procedure/Surgical History Open heart surgery: 08/17/22 Tooth extraction: 08/28/21 Nephrectomy, including partial ureterectomy, any open approach including rib resection; radical, with regional lymphadenectomy and/or vena caval thrombectomy: 08/14/20 Tonsillectomy Boost radiation therapy Chemotherapy Medications Inpatient amiodarone, 200 mg= 1 tab(s), Oral, qDay Dextrose 50% IV Push, 12.5 gram(s)= 25 mL, IV Push, AsDirected, PRN DuoNeb, 3 mL, Inhalation, q4hRT, PRN DuoNeb 0.5 mg - 2.5 mg/3 mL inhalation soln, 3 mL, Inhalation, QIDRT Flonase 50 mcg/inh nasal spray, 100 mcg= 2 spray(s), Nostril, each, BID lactulose, 20 gram(s)= 30 mL, Oral, qDay, PRN Lasix, 40 mg= 4 mL, IV Push, BID magnesium oxide, 400 mg= 1 tab(s), Oral, BID melatonin, 3 mg= 1 tab(s), Oral, qHS, PRN melatonin, 3 mg= 1 tab(s), Oral, qHS, PRN Miralax Powder Packet, 17 gram(s)= 15 mL, Oral, qDay, PRN Nicoderm C-Q 21 mg/24 hr transdermal film, extended release, 21 mg= 1 patch(es), Transdermal, q24h nicotine (Nicoderm Patch REMOVAL), 1 EA, Miscellaneous, q24h NO METFORMIN (Glucophage) X 48hrs-patient has received contrast, 1 EA, Miscellaneous, Unscheduled [place] 325- 5 mg oral tablet, 1 tab(s), Oral, q4h, PRN [place] 325-10 mg oral tablet, 1 tab(s), Oral, q4h, PRN Pulmicort Respules 0.25 mg/2 mL inhalation suspension, 0.25 mg= 2 mL, Inhalation, BIDRT Saline Mist, 2 spray(s), Nostril, each, q2h, PRN senna, 8.6 mg= 1 tab(s), Oral, BID senna (sennosides) 8.6 mg oral tablet, 17.2 mg= 2 tab(s), Oral, BID, PRN Tessalon Perles, 200 mg= 2 cap(s), Oral, TID, PRN Toprol-XL, 25 mg= 1 tab(s), Oral, BID triamcinolone 0.1% topical cream, 1 julia, Topical, BID Tylenol, 650 mg= 2 tab(s), Oral, q4h, PRN warfarin, 2.5 mg= 1 tab(s), Oral, qDay Zofran, 4 mg= 2 mL, IV Push, q4h, PRN Home amiodarone 200 mg oral tablet, 200 mg= 1 tab(s), Oral, qDay cephalexin 500 mg oral capsule clindamycin 1% topical lotion, 1 julia, Topical, BID ketoconazole 2% topical shampoo Lopressor 25mg--USE metoprolol tartrate 25 mg oral tablet, BID oxyCODONE 5 mg oral tablet ( IMMEDIATE release ), 5 mg= 1 tab(s), Oral, q8h, PRN PURELAX 17 GRAM/DOSE POWDER (GRAM), 1cup powder, Oral, qDay, PRN senna (sennosides) 8.6 mg oral tablet, 17.2 mg= 2 tab(s), Oral, BID, PRN, 3 refills Stiolto Respimat 60 ACT 2.5 mcg-2.5 mcg/inh inhalation aerosol, 2 puff(s), Inhalation, q24h, 11 refills Trelegy Ellipta 100 mcg-62.5 mcg-25 mcg/inh inhalation powder, 1 puff(s), Inhalation, qDay, 11 refills triamcinolone 0.1% topical cream, 1 julia, Topical, BID warfarin 5 mg oral tablet warfarin 5 mg oral tablet, 2.5 mg= 0.5 tab(s), Oral, qDay, 11 refills Allergies penicillin Swelling Social History Smoking Status - 11/07/2016 Current every day smoker Alcohol - Medium Risk, 11/07/2016 Use: Past. Type: Beer. Frequency: Daily. Previous treatment: Outpatient. Has alcohol use interferedwith work or home life: No. Do you ever drink more than intended: Yes. Has anyone been hurt or at risk by your drinking: Yes. Ready to change: Yes., 04/14/2023 Employment/School Status: Employed., 12/16/2020 Home/Environment Domestic Concerns: None. Living situation: Home with assistance. 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 Safe place to go: Yes. Lives In: Single level home, 1st floor bedroom, 1st floor bathroom, 1st floor laundry., 08/14/2020 Nutrition/Health Caffeine intake amount: couple bottles a week., 10/20/2022 Type of diet: Regular. Appetite Excellent. Eating Difficulties None., 08/14/2020 Substance Abuse - Denies Substance Abuse, 11/07/2016 Use: Current. Type: Marijuana. Frequency: 1-2 times per month. IV drug use; No. Ready to change: No. Concerns about substance abuse in household: No., 08/14/2020 Tobacco Nicotine Use: 10 or more cigarettes (1/2 pack or more)/day in last 30 days, Quit July; started again the end of August or beginning of September. Type: Cigarettes. Started at age: 13 Years. Ready to change: Yes., 10/20/2022 Family History Bladder cancer: Negative: Mother, Father, Sister, Brother, Daughter, Son and Grandparent. Crohn's disease: Sister. Diabetes: Father. HTN - Hypertension: Mother and Father. Heart attack: Father. Heart disease: Negative: Mother, Father, Sister, Brother, Daughter, Son and Grandparent. Hypertension: Mother and Father.Negative: Sister, Brother, Daughter, Son and Grandparent. Kidney disease: Negative: Mother, Father, Sister, Brother, Daughter, Son and Grandparent. Kidney stone: Mother and Sister.Negative: Father, Brother, Daughter, Son and Grandparent. Prostate cancer: Negative: Father, Brother and Son. Renal cancer: Negative: Mother, Father, Sister, Brother, Daughter, Son and Grandparent. Rheumatoid arthritis: Mother. Health Status Family Member(s) Immunizations SARS-CoV-2 (COVID-19) mRNA-1273 vaccine: 0.25 unknown unit (04/15/21) SARS-CoV-2 (COVID-19) mRNA-1273 vaccine: 0.5 unknown unit (10/15/20) SARS-CoV-2 (COVID-19) mRNA-1273 vaccine: 0.5 unknown unit (09/17/20) Digitally Signed by RACHELL MELGAR MD on 09/25/2023 04:01 PM Digitally Signed by NOAH SEPULVEDA MD [id number] Note ORIGINAL EXAMINATION: ONE XRAY VIEW OF THE CHEST09/25/2023 8:28 am Portable upright COMPARISON: 09/18/2023 HISTORY: ORDERING SYSTEM PROVIDED HISTORY: Reason for Exam: F/U Vascular Congestion, FINDINGS: Stable heart and mediastinum with postop changes and a right-sided central venous port. No vascular congestion or other signs of pulmonary edema. There is mild right basilar opacity from pleural effusion and atelectasis. Right infrahilar density is most likely summation artifact from vessels and rotation. Left lung is clear. IMPRESSION: No vascular congestion. Persistent small right pleural effusion and basilar atelectasis unchanged. Interpreted by: Paige Ray MD Preliminary Report By: Paige Ray MD Electronically signed By Paige Ray MD Dictated Date: 09/25/2023 8:53:13 AM Prelim Date: 09/25/2023 8:54:32 AM Sign Date: 09/25/2023 8:54:32 AM Ordering Provider: RACHELL MELGARMed[facility] [id number] Cardiology Progress note Date of Service Chief Complaint ADHF Subjective NAEO Objective Vitals and Measurements T: 36.2 C (Oral) TMIN: 36.2 C (Oral) TMAX: 36.6 C (Oral) HR: 70 (Apical) RR: 18 BP: 135/68 SpO2: 92% WT: 158 kg Intake and Output 7AM Yesterday to 7AM Today Intake and Output (Last 24 hours) Intake Oral Intake 1420.00 Supplement Intake 0.00 Output Urinary Catheter Output: 6975.00 Stool Count 1.00 Total Summary Total Intake 1420.00 Total Output 6975.00 Fluid Balance -5555.00 Physical Exam General: Alert, oriented, deep sleep arousable, on nasal cannula, morbid obesity Cardiovascular: Warm, well-perfused, lower extremity swelling elevated JVP, loud S2 Weight Current Weight Dosing Weight: 163.7 kg (09/23/23) Current Weight: 158 kg (09/24/23) Dosing Weight: 158.2 kg (09/22/23) Current Weight: 178.5 kg (09/20/23) Medications Medications (26) Active Scheduled: (13) albuterol - ipratropium 2.5 mg-0.5 mg/3 mL Inhal Sejal UD 3 mL, Inhalation, QIDRT amiodarone 200 mg tablet 200 mg 1 tab(s), Oral, qDay budesonide 0.25 mg/2 mL Susp UD 0.25 mg 2 mL, Inhalation, BIDRT empagliflozin 10 mg tablet 10 mg 1 tab(s), Oral, qAM fluticasone nasal 0.05 mg/inh [place] 100 mcg 2 spray(s), Nostril, each, BID magnesium oxide 400 mg Tablet 400 mg 1 tab(s), Oral, BID metoprolol succinate 25 mg ER tablet 25 mg 1 tab(s), Oral, BID Nicoderm patch REMOVAL 1 EA, Miscellaneous, q24h nicotine 21 mg/24 hr ER patch 21 mg 1 patch(es), Transdermal, q24h No metformin for 48 hrs post contrast 1 EA, Miscellaneous, Unscheduled senna 8.6 mg Tablet 8.6 mg 1 tab(s), Oral, BID triamcinolone topical 0.1% Cream 15 Gram(s) 1 julia, Topical, BID warfarin 2.5 mg tablet 2.5 mg 1 tab(s), Oral, qDay Continuous: (0) PRN: (13) acetaminophen 325 mg Tablet 650 mg 2 tab(s), Oral, q4h acetaminophen-HYDROcodone 325-10 mg tablet 1 tab(s), Oral, q4h acetaminophen-HYDROcodone 325-5 mg tablet 1 tab(s), Oral, q4h albuterol - ipratropium 2.5 mg-0.5 mg/3 mL Inhal Sejal UD 3 mL, Inhalation, q4hRT benzonatate 100 mg Capsule 200 mg 2 cap(s), Oral, TID dextrose 50% Solution Disp syringe 50 mL 12.5 gram(s) 25 mL, IV Push, AsDirected lactulose 20 g/30 mL UD cup 20 gram(s) 30 mL, Oral, qDay melatonin 3 mg tablet 3 mg 1 tab(s), Oral, qHS melatonin 3 mg tablet 3 mg 1 tab(s), Oral, qHS ondansetron 2 mg/ 1 mL 2 mL INJ 4 mg 2 mL, IV Push, q4h polyethylene glycol 3350 - UD packet 17 gram(s) 15 mL, Oral, qDay senna 8.6 mg Tablet 17.2 mg 2 tab(s), Oral, BID sodium chloride nasal 0.65% [place] 2 spray(s), Nostril, each, q2h Lab Results 09/23 06:05 WBC: 10.2 Hgb: 14.4 Hct: 43.5 Platelet: 189 Neutrophil %: 91.2 H Protime: 30.2 H PT International Ratio: 2.6 Glucose Level: 134 H Sodium Level: 139 Potassium Level: 4.1 BUN: 31.0 H Creatinine Lvl (s): 1.46 H 09/22 06:11 WBC: 7.0 Hgb: 14.1 Hct: 42.9 Platelet: 175 Neutrophil %: 64.3 Protime: 26.9 H PT International Ratio: 2.3 Glucose Level: 107 Sodium Level: 138 Potassium Level: 3.9 BUN: 27.0 H Creatinine Lvl (s): 1.48 H EKG No qualifying data available. Assessment/Plan Orders: Consult to Physician, 09/24/23 11:00:00 EDT, EMILIO LOPEZ MD, Routine, PHTN Consult to Physician, 09/24/23 11:00:00 EDT, NOAH SEPULVEDA MD, Routine, group II and IV PHTN (HF consult) Pulmonary hypertension WHO group 4 and possibly group 2 Acute on chronic heart failure LVEF 55-60% 09/2023 History of large PE s/p EKOS 07/2022 on warfarin Possible right atrial thrombus Metastatic renal cell carcinoma s/p left nephrectomy 2020 Smoking, history of alcohol use Acute on chronic renal failure Morbid obesity BMI 65 CVC: AQ 43-year-old man with renal cell carcinoma s/p nephrectomy, on nivolumab immunotherapy, large PE s/pEKOS 07/2022 with transfer to for further care, on warfarin, who is admitted to the hospital 09/18/2023 for respiratory failure and cellulitis of the scrotum and abdominal wall, respiratory failure, noted to have a recent admission at [facility] for cellulitis. Heart failure cardiology was consulted to manage heart failure, the patient did well on furosemide infusion and pushes, continues to diurese well without diuretics, RHC done 09/21/2023, pending final report. RAP 18 RV pressure 64/18 PAP 64/26 (35) PCWP 20 Chest imaging reviewed, no significant pulmonary edema on CT and x-ray on different occasions. Recent VQ scan 09/18/2023 shows moderate size perfusion defect on the right lung consistent with previous PE location. CTA shows no acute PE. TTE shows dilated right-sided chambers > left with abnormal septal motion, as well as notched RVO VTI. Recently patient had an episode of presyncope at [facility]. Recommendation: Discontinue empagliflozin (scrotal cellulitis), patient continues to auto diurese, will continue furosemide and monitor renal function Heart failure and pulmonary consult for pulmonary hypertension group 4, possible group 2 mixed given elevated wedge pressure, may need repeat right heart cath Once wedge is optimized, may be a candidate for balloon pulmonary angioplasty at (he receives care for acute PE there 07/2022), or [facility] Discussed with Dr. Felisha Medeiros MD Court Collections Officer Messenger julia or Pager [phone] Digitally Signed by FER MEDEIROS MD on 09/24/2023 11:24 AM [facility] [id number] Pulmonary Consult note Date of Service 09/24/2023 Reason for Consultation Pulmonary Hypertension Referring Physician Dr. Medeiros, Cardiology Service History of Present Illness This is a 43-year-old male with a history of metastatic renal cell carcinoma status post left-sidednephrectomy in 2020, obesity, history of pulmonary embolism and July 2022, nicotine dependence who is currently mated for volume overload and decompensated heart failure. Patient was diagnosed with an acute pulmonary embolism in July 2022 and received catheter directed thrombolysis after being admitted to the medical ICU with acute pulmonary embolism. At that time, the patient had some irregular masses noted in the right atrium with concern for clot in transit and he was subsequently transferred to [facility] for evaluation of thrombectomy. The patient did undergo a procedure with resection of masses but it is unclear if these are clot or related to his underlying malignancy. Since then, the patient has been on anticoagulation with suboptimal adherence. The patient has beentransition to Coumadin after DOAC. He is a continued smoker and has continued alcohol dependence. There have been many recommendations to pursue optimization of suspected sleep disordered breathing, with the patient has not been able to complete a sleep study. The patient was admitted with volume overload and has undergone diuresis with a significant amount of weight loss during this hospital stay. Echocardiogram has evidence of pulmonary hypertension. Thepatient underwent a right heart catheterization and reportedly the patient's wedge pressures were elevated. The patient had a perfusion scan that was indeterminate for PE. Physical Exam Vitals and Measurements T: 37.2 C (Oral) TMIN: 36.2 C (Oral) TMAX: 37.2 C (Oral) HR: 74 (Apical) RR: 18 BP: 138/72 SpO2: 97% WT: 158 kg Weight Current Weight Dosing Weight: 163.7 kg (09/23/23) Current Weight: 158 kg (09/24/23) Dosing Weight: 158.2 kg (09/22/23) Current Weight: 178.5 kg (09/20/23) - GENERAL: No acute distress. - HEENT: EOMI. moist mucous membranes. - LUNGS: Diminished bilaterally. No accessory muscle use. - CARDIOVASCULAR: Regular rate and rhythm. - ABDOMEN: Soft, obese - EXTREMITIES: Trace edema, wrinkling of the skin in the bilateral shins with chronic venous stasischanges. Lab Results 09/23 06:05 WBC: 10.2 Hgb: 14.4 Hct: 43.5 Platelet: 189 Neutrophil %: 91.2 H Protime: 30.2 H PT International Ratio: 2.6 Glucose Level: 134 H Sodium Level: 139 Potassium Level: 4.1 BUN: 31.0 H Creatinine Lvl (s): 1.46 H Assessment/Plan Assessment: Pulmonary hypertension, multifactorial. Suspect contributions from undiagnosed sleep apnea, obesityhypoventilation syndrome, diastolic heart failure, with possible chronic thromboembolic pulmonary hypertension Nicotine dependence with ongoing smoking Chronic alcohol use leading to suboptimal medication adherence Severe obesity Contraction alkalosis History of metastatic renal cell carcinoma status post nephrectomy, currently on immunotherapy withnivolumab Continue volume overload Currently being treated for cellulitis Recommendations: Volume optimization per cardiology team. If there is a persistently elevated wedge, patient may benefit from continued diuretics Given patient's history of pulmonary embolism and indeterminate VQ scan, patient should be evaluated by a pulmonary hypertension center with expertise in chronic thromboembolic pulmonary hypertension. This could potentially be done as an outpatient. There are many other aspects of the patient's pulmonary hypertension that could be optimized including treatment of suspected sleep disordered breathing, smoking cessation, cessation of chronic alcohol use. Thank you very much for this consultation Problem List/Past Medical History Ongoing Alcohol abuse Left renal mass. 9.6-cm. With perinephric fat invasion. With lytic bony lesion and pulmonary nodules concerning for mets. BS, 07/2020 - neg. CT brain, 07/2020 - neg. S/P Radical nephrectomy 08/14/20. Metastatic renal cell carcinoma. S/P Left cytoreductive nephrectomy 08/14/20. Final path - ccRCC withsarcomatoid features. Morbid obesity due to excess calories No chronic diseases present T11 vertebral fracture Tobacco abuse Viral gastroenteritis Cigarette smoker Active Lung nodule, multiple Active Marijuana user Active Secondary malignant neoplasm of bone (disorder) Active Historical Renal cell carcinoma (disorder) Active Procedure/Surgical History Open heart surgery: 08/17/22 Tooth extraction: 08/28/21 Nephrectomy, including partial ureterectomy, any open approach including rib resection; radical, with regional lymphadenectomy and/or vena caval thrombectomy: 08/14/20 Tonsillectomy Boost radiation therapy Chemotherapy Medications Inpatient amiodarone, 200 mg= 1 tab(s), Oral, qDay Dextrose 50% IV Push, 12.5 gram(s)= 25 mL, IV Push, AsDirected, PRN DuoNeb, 3 mL, Inhalation, q4hRT, PRN DuoNeb 0.5 mg - 2.5 mg/3 mL inhalation soln, 3 mL, Inhalation, QIDRT Flonase 50 mcg/inh nasal spray, 100 mcg= 2 spray(s), Nostril, each, BID lactulose, 20 gram(s)= 30 mL, Oral, qDay, PRN Lasix, 40 mg= 4 mL, IV Push, BID magnesium oxide, 400 mg= 1 tab(s), Oral, BID melatonin, 3 mg= 1 tab(s), Oral, qHS, PRN melatonin, 3 mg= 1 tab(s), Oral, qHS, PRN Miralax Powder Packet, 17 gram(s)= 15 mL, Oral, qDay, PRN Nicoderm C-Q 21 mg/24 hr transdermal film, extended release, 21 mg= 1 patch(es), Transdermal, q24h nicotine (Nicoderm Patch REMOVAL), 1 EA, Miscellaneous, q24h NO METFORMIN (Glucophage) X 48hrs-patient has received contrast, 1 EA, Miscellaneous, Unscheduled [place] 325- 5 mg oral tablet, 1 tab(s), Oral, q4h, PRN [place] 325-10 mg oral tablet, 1 tab(s), Oral, q4h, PRN Pulmicort Respules 0.25 mg/2 mL inhalation suspension, 0.25 mg= 2 mL, Inhalation, BIDRT Saline Mist, 2 spray(s), Nostril, each, q2h, PRN senna, 8.6 mg= 1 tab(s), Oral, BID senna (sennosides) 8.6 mg oral tablet, 17.2 mg= 2 tab(s), Oral, BID, PRN Tessalon Perles, 200 mg= 2 cap(s), Oral, TID, PRN Toprol-XL, 25 mg= 1 tab(s), Oral, BID triamcinolone 0.1% topical cream, 1 julia, Topical, BID Tylenol, 650 mg= 2 tab(s), Oral, q4h, PRN warfarin, 2.5 mg= 1 tab(s), Oral, qDay Zofran, 4 mg= 2 mL, IV Push, q4h, PRN Home amiodarone 200 mg oral tablet, 200 mg= 1 tab(s), Oral, qDay cephalexin 500 mg oral capsule clindamycin 1% topical lotion, 1 julia, Topical, BID ketoconazole 2% topical shampoo Lopressor 25mg--USE metoprolol tartrate 25 mg oral tablet, BID oxyCODONE 5 mg oral tablet ( IMMEDIATE release ), 5 mg= 1 tab(s), Oral, q8h, PRN PURELAX 17 GRAM/DOSE POWDER (GRAM), 1cup powder, Oral, qDay, PRN senna (sennosides) 8.6 mg oral tablet, 17.2 mg= 2 tab(s), Oral, BID, PRN, 3 refills Stiolto Respimat 60 ACT 2.5 mcg-2.5 mcg/inh inhalation aerosol, 2 puff(s), Inhalation, q24h, 11 refills Trelegy Ellipta 100 mcg-62.5 mcg-25 mcg/inh inhalation powder, 1 puff(s), Inhalation, qDay, 11 refills triamcinolone 0.1% topical cream, 1 julia, Topical, BID warfarin 5 mg oral tablet warfarin 5 mg oral tablet, 2.5 mg= 0.5 tab(s), Oral, qDay, 11 refills Allergies penicillin Swelling Social History Smoking Status - 11/07/2016 Current every day smoker Alcohol - Medium Risk, 11/07/2016 Use: Past. Type: Beer. Frequency: Daily. Previous treatment: Outpatient. Has alcohol use interferedwith work or home life: No. Do you ever drink more than intended: Yes. Has anyone been hurt or at risk by your drinking: Yes. Ready to change: Yes., 04/14/2023 Employment/School Status: Employed., 12/16/2020 Home/Environment Domestic Concerns: None. Living situation: Home with assistance. 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 Safe place to go: Yes. Lives In: Single level home, 1st floor bedroom, 1st floor bathroom, 1st floor laundry., 08/14/2020 Nutrition/Health Caffeine intake amount: couple bottles a week., 10/20/2022 Type of diet: Regular. Appetite Excellent. Eating Difficulties None., 08/14/2020 Substance Abuse - Denies Substance Abuse, 11/07/2016 Use: Current. Type: Marijuana. Frequency: 1-2 times per month. IV drug use; No. Ready to change: No. Concerns about substance abuse in household: No., 08/14/2020 Tobacco Nicotine Use: 10 or more cigarettes (1/2 pack or more)/day in last 30 days, Quit July; started again the end of August or beginning of September. Type: Cigarettes. Started at age: 13 Years. Ready to change: Yes., 10/20/2022 Family History Bladder cancer: Negative: Mother, Father, Sister, Brother, Daughter, Son and Grandparent. Crohn's disease: Sister. Diabetes: Father. HTN - Hypertension: Mother and Father. Heart attack: Father. Heart disease: Negative: Mother, Father, Sister, Brother, Daughter, Son and Grandparent. Hypertension: Mother and Father.Negative: Sister, Brother, Daughter, Son and Grandparent. Kidney disease: Negative: Mother, Father, Sister, Brother, Daughter, Son and Grandparent. Kidney stone: Mother and Sister.Negative: Father, Brother, Daughter, Son and Grandparent. Prostate cancer: Negative: Father, Brother and Son. Renal cancer: Negative: Mother, Father, Sister, Brother, Daughter, Son and Grandparent. Rheumatoid arthritis: Mother. Health Status Family Member(s) Immunizations SARS-CoV-2 (COVID-19) mRNA-1273 vaccine: 0.25 unknown unit (04/15/21) SARS-CoV-2 (COVID-19) mRNA-1273 vaccine: 0.5 unknown unit (10/15/20) SARS-CoV-2 (COVID-19) mRNA-1273 vaccine: 0.5 unknown unit (09/17/20) Digitally Signed by EMILIO LOPEZ MD on 09/24/2023 08:30 PM Digitally Signed by EMILIO LOPEZ MD on 09/24/2023 08:30 PM [id number] Note Date of Service 09/24/23 Subjective 43-year-old male with a history of metastatic renal cell carcinoma status post left-sided nephrectomy in 2020, HFpEF, obesity, COPD, PE on Coumadin, smoker and alcohol abuse presented due to bilateral lower extremity swelling, orthopnea, 40 pound weight gain, increased swelling in scrotum. He was admitted to [facility] for management heart failure then transferred to [facility] for evaluation by [facility] ridology service. He was started on lasix drip at 10 ggt and put out 10L of urine over 24 hours. Continued on antibiotics for cellulitis of the scrotum identified on imaging without any associated sepsis. He diuresed over 20L of urine. Underwent CTA due to history of PE with concern for strain which was negative. Right heart cath performed and results are pending. Nephrology followed due to acutekidney injury, presence of solitary kidney, and metastatic renal cell carcinoma. Plan is to transition patient to an oral diuretic regimen gradually. Hes feeling well no concerns. Objective Vitals and Measurements T: 37.2 C (Oral) TMIN: 36.2 C (Oral) TMAX: 37.2 C (Oral) HR: 74 (Apical) RR: 18 BP: 138/72 SpO2: 97% WT: 158 kg Intake and Output 7AM Yesterday to 7AM Today Intake and Output (Last 24 hours) Intake Oral Intake 580.00 Supplement Intake 0.00 Output Urinary Catheter Output: 6900.00 Stool Count 1.00 Total Summary Total Intake 580.00 Total Output 6900.00 Fluid Balance -6320.00 Physical Exam Weight Current Weight Dosing Weight: 163.7 kg (09/23/23) Current Weight: 158 kg (09/24/23) Dosing Weight: 158.2 kg (09/22/23) Current Weight: 178.5 kg (09/20/23) Medications Medications (26) Active Scheduled: (13) albuterol - ipratropium 2.5 mg-0.5 mg/3 mL Inhal Sejal UD 3 mL, Inhalation, QIDRT amiodarone 200 mg tablet 200 mg 1 tab(s), Oral, qDay budesonide 0.25 mg/2 mL Susp UD 0.25 mg 2 mL, Inhalation, BIDRT fluticasone nasal 0.05 mg/inh [place] 100 mcg 2 spray(s), Nostril, each, BID furosemide 40 mg/4 mL vial 40 mg 4 mL, IV Push, BID magnesium oxide 400 mg Tablet 400 mg 1 tab(s), Oral, BID metoprolol succinate 25 mg ER tablet 25 mg 1 tab(s), Oral, BID Nicoderm patch REMOVAL 1 EA, Miscellaneous, q24h nicotine 21 mg/24 hr ER patch 21 mg 1 patch(es), Transdermal, q24h No metformin for 48 hrs post contrast 1 EA, Miscellaneous, Unscheduled senna 8.6 mg Tablet 8.6 mg 1 tab(s), Oral, BID triamcinolone topical 0.1% Cream 15 Gram(s) 1 julia, Topical, BID warfarin 2.5 mg tablet 2.5 mg 1 tab(s), Oral, qDay Continuous: (0) PRN: (13) acetaminophen 325 mg Tablet 650 mg 2 tab(s), Oral, q4h acetaminophen-HYDROcodone 325-10 mg tablet 1 tab(s), Oral, q4h acetaminophen-HYDROcodone 325-5 mg tablet 1 tab(s), Oral, q4h albuterol - ipratropium 2.5 mg-0.5 mg/3 mL Inhal Sejal UD 3 mL, Inhalation, q4hRT benzonatate 100 mg Capsule 200 mg 2 cap(s), Oral, TID dextrose 50% Solution Disp syringe 50 mL 12.5 gram(s) 25 mL, IV Push, AsDirected lactulose 20 g/30 mL UD cup 20 gram(s) 30 mL, Oral, qDay melatonin 3 mg tablet 3 mg 1 tab(s), Oral, qHS melatonin 3 mg tablet 3 mg 1 tab(s), Oral, qHS ondansetron 2 mg/ 1 mL 2 mL INJ 4 mg 2 mL, IV Push, q4h polyethylene glycol 3350 - UD packet 17 gram(s) 15 mL, Oral, qDay senna 8.6 mg Tablet 17.2 mg 2 tab(s), Oral, BID sodium chloride nasal 0.65% [place] 2 spray(s), Nostril, each, q2h Lab Results 09/23 06:05 WBC: 10.2 Hgb: 14.4 Hct: 43.5 Platelet: 189 Neutrophil %: 91.2 H Protime: 30.2 H PT International Ratio: 2.6 Glucose Level: 134 H Sodium Level: 139 Potassium Level: 4.1 BUN: 31.0 H Creatinine Lvl (s): 1.46 H EKG No qualifying data available. Assessment/Plan Acute on chronic diastolic heart failure Renal cell carcinoma status post left nephrectomy Metastatic renal cell carcinoma on immunotherapy with NIVOLUMAB once a month Acute kidney injury multifactorial Cellulitis of the abdomen History of pulmonary embolism chronically on Coumadin Class III obesity Cigarette smoker Alcohol use disorder without dependence or withdrawal Chronic lower back pain Chronic constipation dvt prophylaxis- he is therapeutic INR w/ coumadin Today no new complaints. Cardiology and nephrology following. Cardiology consulted pulm and heart failure services due to pulmonary hypertension while we figure out what the best medication regimen for this patient. He has no additional concerns. INR 2.6 today. Adjusted his coumadin to 2.5 daily. Will follow up inr daily. Continue remaining regimen. 09/22 Today started on diamox by cardiology. Nephrology ordered steroids for MARIA ESTHER. Plan is continue to monitor the patient and transition to oral diuretics when able. INR 2.3. Adjusted coumadin to 2.5 daily. Continue remaining regimen. 09/21 Since yesterday patient had right heart cath to evaluate severity of pulm HTN, will follow up results. Nephrology following due to patient metastatic RCC, solitary kidney and MARIA ESTHER. Discussed case w/ Dr. Stinson who notes patient needs to be gradually transitioned to some diuretic regimen. To do this without harm will take time and monitoring. He no longer has any signs of cellulitic infection, will discontinue antibiotics at this time. Continue coumadin due to history of PE. Chronically he takes 5 qd. INR 2.1 Still therapeutic. He is off lasix drip at this time. Okay for regular floor. Order placed. 09/20 Since yesterday, Cr increased. He has solitary kidney and is with mild MARIA ESTHER. Consulted nephrology tohelp protect kidney function. Discussed case with nephrology. Cardiology planning for right heart cath. Urology evaluated and noted okay to leave ochoa catheter in at this time. Penile edema improved. Noevidence cellulitis scrotum at this time. Continue current level of care for monitoring arrhythmia as cardiac meds titrated. 09/19 Today he continues to put out large volume of urine. He is overall feeling much better today. He has lost atleast 30 pounds after review of weights. Cr this am appropriate. Cl low, ordered KCl to help w/ loss and mitigate alkalosis. Continue current lasix drip. Lasix drip requires intense monitoring for drug toxicity and daily labs. Continue current regimen. This is an acute exacerbation of a chronic problem. Yesterday had CTA performed to assess PE and it was negative. Cardiology following. No contrast nephropathy identified today. Hes still on antibiotics for cellulitis. Continue the same. Diuresis also helping with patients swelling. Hes at therapeutic INR still. Started coumadin at 5mg daily as is his outpatient regimen. Discussed case w/ Dr. Newell. 09/18 Patient is admitted for acute on chronic heart failure. He was started on a Lasix drip at 10 yesterday and since then has put out over 10 L of urine. I verified with staff and technicians that this was accurate and they verified indeed he did put out at least 10 L of urine. His labs today are pending. Will follow up results. We paged labs to get them immediately given the volume he is voiding. Will pause drip until labs return. Started KCl aggressively given volume voiding to mitigate alkalosis. Goal K>4.5 Will follow up INR and see whether coumadin can be restarted. Continue cefdinir and doxy. Continue step down level of care for now with volume voiding and current electrolytes at risk severe derangement and needs cardiac monitoring. Digitally Signed by PRISCILLA BULL MD on 09/24/2023 07:11 PM [id number] Cardiology Progress note Date of Service Chief Complaint ADHF Subjective NAEO Objective Vitals and Measurements T: 36.2 C (Oral) TMIN: 36.2 C (Oral) TMAX: 36.6 C (Oral) HR: 70 (Apical) RR: 18 BP: 135/68 SpO2: 92% WT: 158 kg Intake and Output 7AM Yesterday to 7AM Today Intake and Output (Last 24 hours) Intake Oral Intake 1420.00 Supplement Intake 0.00 Output Urinary Catheter Output: 6975.00 Stool Count 1.00 Total Summary Total Intake 1420.00 Total Output 6975.00 Fluid Balance -5555.00 Physical Exam General: Alert, oriented, deep sleep arousable, on nasal cannula, morbid obesity Cardiovascular: Warm, well-perfused, lower extremity swelling elevated JVP, loud S2 Weight Current Weight Dosing Weight: 163.7 kg (09/23/23) Current Weight: 158 kg (09/24/23) Dosing Weight: 158.2 kg (09/22/23) Current Weight: 178.5 kg (09/20/23) Medications Medications (26) Active Scheduled: (13) albuterol - ipratropium 2.5 mg-0.5 mg/3 mL Inhal Sejal UD 3 mL, Inhalation, QIDRT amiodarone 200 mg tablet 200 mg 1 tab(s), Oral, qDay budesonide 0.25 mg/2 mL Susp UD 0.25 mg 2 mL, Inhalation, BIDRT empagliflozin 10 mg tablet 10 mg 1 tab(s), Oral, qAM fluticasone nasal 0.05 mg/inh Polk 100 mcg 2 spray(s), Nostril, each, BID magnesium oxide 400 mg Tablet 400 mg 1 tab(s), Oral, BID metoprolol succinate 25 mg ER tablet 25 mg 1 tab(s), Oral, BID Nicoderm patch REMOVAL 1 EA, Miscellaneous, q24h nicotine 21 mg/24 hr ER patch 21 mg 1 patch(es), Transdermal, q24h No metformin for 48 hrs post contrast 1 EA, Miscellaneous, Unscheduled senna 8.6 mg Tablet 8.6 mg 1 tab(s), Oral, BID triamcinolone topical 0.1% Cream 15 Gram(s) 1 julia, Topical, BID warfarin 2.5 mg tablet 2.5 mg 1 tab(s), Oral, qDay Continuous: (0) PRN: (13) acetaminophen 325 mg Tablet 650 mg 2 tab(s), Oral, q4h acetaminophen-HYDROcodone 325-10 mg tablet 1 tab(s), Oral, q4h acetaminophen-HYDROcodone 325-5 mg tablet 1 tab(s), Oral, q4h albuterol - ipratropium 2.5 mg-0.5 mg/3 mL Inhal Sejal UD 3 mL, Inhalation, q4hRT benzonatate 100 mg Capsule 200 mg 2 cap(s), Oral, TID dextrose 50% Solution Disp syringe 50 mL 12.5 gram(s) 25 mL, IV Push, AsDirected lactulose 20 g/30 mL UD cup 20 gram(s) 30 mL, Oral, qDay melatonin 3 mg tablet 3 mg 1 tab(s), Oral, qHS melatonin 3 mg tablet 3 mg 1 tab(s), Oral, qHS ondansetron 2 mg/ 1 mL 2 mL INJ 4 mg 2 mL, IV Push, q4h polyethylene glycol 3350 - UD packet 17 gram(s) 15 mL, Oral, qDay senna 8.6 mg Tablet 17.2 mg 2 tab(s), Oral, BID sodium chloride nasal 0.65% Polk 2 spray(s), Nostril, each, q2h Lab Results 09/23 06:05 WBC: 10.2 Hgb: 14.4 Hct: 43.5 Platelet: 189 Neutrophil %: 91.2 H Protime: 30.2 H PT International Ratio: 2.6 Glucose Level: 134 H Sodium Level: 139 Potassium Level: 4.1 BUN: 31.0 H Creatinine Lvl (s): 1.46 H 09/22 06:11 WBC: 7.0 Hgb: 14.1 Hct: 42.9 Platelet: 175 Neutrophil %: 64.3 Protime: 26.9 H PT International Ratio: 2.3 Glucose Level: 107 Sodium Level: 138 Potassium Level: 3.9 BUN: 27.0 H Creatinine Lvl (s): 1.48 H EKG No qualifying data available. Assessment/Plan Orders: Consult to Physician, 09/24/23 11:00:00 EDT, EMILIO LOPEZ MD, Routine, PHTN Consult to Physician, 09/24/23 11:00:00 EDT, NOAH SEPULVEDA MD, Routine, group II and IV PHTN (HF consult) Pulmonary hypertension WHO group 4 and possibly group 2 Acute on chronic heart failure LVEF 55-60% 09/2023 History of large PE s/p EKOS 07/2022 on warfarin Possible right atrial thrombus Metastatic renal cell carcinoma s/p left nephrectomy 2020 Smoking, history of alcohol use Acute on chronic renal failure Morbid obesity BMI 65 CVC: AQ 43-year-old man with renal cell carcinoma s/p nephrectomy, on nivolumab immunotherapy, large PE s/pEKOS 07/2022 with transfer to for further care, on warfarin, who is admitted to the hospital 09/18/2023 for respiratory failure and cellulitis of the scrotum and abdominal wall, respiratory failure, noted to have a recent admission at [facility] for cellulitis. Heart failure cardiology was consulted to manage heart failure, the patient did well on furosemide infusion and pushes, continues to diurese well without diuretics, RHC done 09/21/2023, pending final report. RAP 18 RV pressure 64/18 PAP 64/26 (35) PCWP 20 Chest imaging reviewed, no significant pulmonary edema on CT and x-ray on different occasions. Recent VQ scan 09/18/2023 shows moderate size perfusion defect on the right lung consistent with previous PE location. CTA shows no acute PE. TTE shows dilated right-sided chambers > left with abnormal septal motion, as well as notched RVO VTI. Recently patient had an episode of presyncope at [facility]. Recommendation: Discontinue empagliflozin (scrotal cellulitis), patient continues to auto diurese, will continue furosemide and monitor renal function Heart failure and pulmonary consult for pulmonary hypertension group 4, possible group 2 mixed given elevated wedge pressure, may need repeat right heart cath Once wedge is optimized, may be a candidate for balloon pulmonary angioplasty at (he receives care for acute PE there 07/2022), or [facility] Discussed with Dr. Felisha Medeiros MD Court Collections Officer Messenger julia or Pager [phone] Digitally Signed by FER MEDEIROS MD on 09/24/2023 11:24 AM [id number] Nephrology Progress note Subjective Seen and examined resting. Chart was reviewed. Discussed with nursing no active issues overnight. Objective Vitals and Measurements T: 36.2 C (Oral) TMIN: 36.2 C (Oral) TMAX: 36.6 C (Oral) HR: 70 (Apical) RR: 18 BP: 135/68 SpO2: 92% WT: 158 kg Intake and Output 7AM Yesterday to 7AM Today Intake and Output (Last 24 hours) Intake Oral Intake 1420.00 Supplement Intake 0.00 Output Urinary Catheter Output: 6975.00 Stool Count 1.00 Total Summary Total Intake 1420.00 Total Output 6975.00 Fluid Balance -5555.00 Physical Exam Gen: comfortable, No sign of any acute distress, 2 L nasal cannula HEENT: No pallor, No icterus, +4 JVD, no carotid bruit Lungs: Clear to auscultation, good air entry CVS: Regular rate and rhythm, no murmur, no rubs Abd: Soft, nontender, no organomegaly, No flank pain Neuro: Alert, no deficits Ext: +2 edema Ochoa catheter Left chest port [ [1] Weight Current Weight Dosing Weight: 163.7 kg (09/23/23) Current Weight: 158 kg (09/24/23) Dosing Weight: 158.2 kg (09/22/23) Current Weight: 178.5 kg (09/20/23) Medications Medications (26) Active Scheduled: (13) albuterol - ipratropium 2.5 mg-0.5 mg/3 mL Inhal Sejal UD 3 mL, Inhalation, QIDRT amiodarone 200 mg tablet 200 mg 1 tab(s), Oral, qDay budesonide 0.25 mg/2 mL Susp UD 0.25 mg 2 mL, Inhalation, BIDRT empagliflozin 10 mg tablet 10 mg 1 tab(s), Oral, qAM fluticasone nasal 0.05 mg/inh Polk 100 mcg 2 spray(s), Nostril, each, BID magnesium oxide 400 mg Tablet 400 mg 1 tab(s), Oral, BID metoprolol succinate 25 mg ER tablet 25 mg 1 tab(s), Oral, BID Nicoderm patch REMOVAL 1 EA, Miscellaneous, q24h nicotine 21 mg/24 hr ER patch 21 mg 1 patch(es), Transdermal, q24h No metformin for 48 hrs post contrast 1 EA, Miscellaneous, Unscheduled senna 8.6 mg Tablet 8.6 mg 1 tab(s), Oral, BID triamcinolone topical 0.1% Cream 15 Gram(s) 1 julia, Topical, BID warfarin 2.5 mg tablet 2.5 mg 1 tab(s), Oral, qDay Continuous: (0) PRN: (13) acetaminophen 325 mg Tablet 650 mg 2 tab(s), Oral, q4h acetaminophen-HYDROcodone 325-10 mg tablet 1 tab(s), Oral, q4h acetaminophen-HYDROcodone 325-5 mg tablet 1 tab(s), Oral, q4h albuterol - ipratropium 2.5 mg-0.5 mg/3 mL Inhal Sejal UD 3 mL, Inhalation, q4hRT benzonatate 100 mg Capsule 200 mg 2 cap(s), Oral, TID dextrose 50% Solution Disp syringe 50 mL 12.5 gram(s) 25 mL, IV Push, AsDirected lactulose 20 g/30 mL UD cup 20 gram(s) 30 mL, Oral, qDay melatonin 3 mg tablet 3 mg 1 tab(s), Oral, qHS melatonin 3 mg tablet 3 mg 1 tab(s), Oral, qHS ondansetron 2 mg/ 1 mL 2 mL INJ 4 mg 2 mL, IV Push, q4h polyethylene glycol 3350 - UD packet 17 gram(s) 15 mL, Oral, qDay senna 8.6 mg Tablet 17.2 mg 2 tab(s), Oral, BID sodium chloride nasal 0.65% Polk 2 spray(s), Nostril, each, q2h Lab Results 09/23 06:05 WBC: 10.2 Hgb: 14.4 Hct: 43.5 Platelet: 189 Neutrophil %: 91.2 H Protime: 30.2 H PT International Ratio: 2.6 Glucose Level: 134 H Sodium Level: 139 Potassium Level: 4.1 BUN: 31.0 H Creatinine Lvl (s): 1.46 H 09/22 06:11 WBC: 7.0 Hgb: 14.1 Hct: 42.9 Platelet: 175 Neutrophil %: 64.3 Protime: 26.9 H PT International Ratio: 2.3 Glucose Level: 107 Sodium Level: 138 Potassium Level: 3.9 BUN: 27.0 H Creatinine Lvl (s): 1.48 H EKG No qualifying data available. Assessment/Plan 1. Acute kidney injury with underlying chronic kidney disease baseline creatinine 1.2 to 1.3 mg/dL 2. Metastatic renal cell carcinoma on immunotherapy with NIVOLUMAB once a month 3. Diastolic heart failure 4. Pulmonary hypertension 5. Pulmonary embolism 6. Solitary functioning right kidney status post left nephrectomy 2020 7. Metabolic alkalosis [1 [2] Renal function remains unchanged. Acute kidney injury as a result of contrast nephropathy delayed with need for diuresis. Difficult assess patient intravascular volume status. If okay with cardiologywill continue to monitor of loop diuretics. Metabolic alkalosis improving with Diamox. Indeterminate VQ scan but CT angiogram negative for any pulmonary embolism. Patient did receive one- time dose ofSolu-Medrol for possible interstitial nephritis. Gentle hydration overnight. Will continue to follow labs. Follow labs. See orders. [1] Progress Note; ANDI STINSON MD 09/23/2023 12:16 EDT [2] Progress Note; ANDI STINSON MD 09/23/2023 12:16 EDT Digitally Signed by ANDI STINSON MD on 09/24/2023 11:05 AM [id number] Note Date of Service 09/23/23 Subjective 43-year-old male with a history of metastatic renal cell carcinoma status post left-sided nephrectomy in 2020, HFpEF, obesity, COPD, PE on Coumadin, smoker and alcohol abuse presented due to bilateral lower extremity swelling, orthopnea, 40 pound weight gain, increased swelling in scrotum. He was admitted to [facility] for management heart failure then transferred to [facility] for evaluation by caridology service. He was started on lasix drip at 10 ggt and put out 10L of urine over 24 hours. Continued on antibiotics for cellulitis of the scrotum identified on imaging without any associated sepsis. He diuresed over 20L of urine. Underwent CTA due to history of PE with concern for strain which was negative. Right heart cath performed and results are pending. Nephrology followed due to acutekidney injury, presence of solitary kidney, and metastatic renal cell carcinoma. Plan is to transition patient to an oral diuretic regimen gradually. Objective Vitals and Measurements T: 36.6 C (Oral) TMIN: 35.9 C (Oral) TMAX: 36.6 C (Oral) HR: 70 RR: 20 BP: 148/91 SpO2: 93% WT: 163.7 kg Intake and Output 7AM Yesterday to 7AM Today Intake and Output (Last 24 hours) Intake Oral Intake 410.00 Output Urinary Catheter Output: 4050.00 Stool Count 0.00 Total Summary Total Intake 410.00 Total Output 4050.00 Fluid Balance -3640.00 Physical Exam Weight Current Weight Dosing Weight: 163.7 kg (09/23/23) Current Weight: 178.5 kg (09/20/23) Dosing Weight: 158.2 kg (09/22/23) Medications Medications (26) Active Scheduled: (13) albuterol - ipratropium 2.5 mg-0.5 mg/3 mL Inhal Sejal UD 3 mL, Inhalation, QIDRT amiodarone 200 mg tablet 200 mg 1 tab(s), Oral, qDay budesonide 0.25 mg/2 mL Susp UD 0.25 mg 2 mL, Inhalation, BIDRT empagliflozin 10 mg tablet 10 mg 1 tab(s), Oral, qAM fluticasone nasal 0.05 mg/inh Polk 100 mcg 2 spray(s), Nostril, each, BID magnesium oxide 400 mg Tablet 400 mg 1 tab(s), Oral, BID metoprolol succinate 25 mg ER tablet 25 mg 1 tab(s), Oral, BID Nicoderm patch REMOVAL 1 EA, Miscellaneous, q24h nicotine 21 mg/24 hr ER patch 21 mg 1 patch(es), Transdermal, q24h No metformin for 48 hrs post contrast 1 EA, Miscellaneous, Unscheduled senna 8.6 mg Tablet 8.6 mg 1 tab(s), Oral, BID triamcinolone topical 0.1% Cream 15 Gram(s) 1 julia, Topical, BID warfarin 5 mg tablet 5 mg 1 tab(s), Oral, qDay Continuous: (0) PRN: (13) acetaminophen 325 mg Tablet 650 mg 2 tab(s), Oral, q4h acetaminophen-HYDROcodone 325-10 mg tablet 1 tab(s), Oral, q4h acetaminophen-HYDROcodone 325-5 mg tablet 1 tab(s), Oral, q4h albuterol - ipratropium 2.5 mg-0.5 mg/3 mL Inhal Sejal UD 3 mL, Inhalation, q4hRT benzonatate 100 mg Capsule 200 mg 2 cap(s), Oral, TID dextrose 50% Solution Disp syringe 50 mL 12.5 gram(s) 25 mL, IV Push, AsDirected lactulose 20 g/30 mL UD cup 20 gram(s) 30 mL, Oral, qDay melatonin 3 mg tablet 3 mg 1 tab(s), Oral, qHS melatonin 3 mg tablet 3 mg 1 tab(s), Oral, qHS ondansetron 2 mg/ 1 mL 2 mL INJ 4 mg 2 mL, IV Push, q4h polyethylene glycol 3350 - UD packet 17 gram(s) 15 mL, Oral, qDay senna 8.6 mg Tablet 17.2 mg 2 tab(s), Oral, BID sodium chloride nasal 0.65% Polk 2 spray(s), Nostril, each, q2h Lab Results 09/22 06:11 WBC: 7.0 Hgb: 14.1 Hct: 42.9 Platelet: 175 Neutrophil %: 64.3 Protime: 26.9 H PT International Ratio: 2.3 Glucose Level: 107 Sodium Level: 138 Potassium Level: 3.9 BUN: 27.0 H Creatinine Lvl (s): 1.48 H 09/21 05:03 WBC: 6.2 Hgb: 14.2 Hct: 43.5 Platelet: 180 Neutrophil %: 65.7 Protime: 24.1 H PT International Ratio: 2.1 Glucose Level: 100 Sodium Level: 139 Potassium Level: 3.8 BUN: 23.0 H Creatinine Lvl (s): 1.49 H EKG No qualifying data available. Assessment/Plan Acute on chronic diastolic heart failure Renal cell carcinoma status post left nephrectomy Metastatic renal cell carcinoma on immunotherapy with NIVOLUMAB once a month Acute kidney injury multifactorial Cellulitis of the abdomen History of pulmonary embolism chronically on Coumadin Class III obesity Cigarette smoker Alcohol use disorder without dependence or withdrawal Chronic lower back pain Chronic constipation dvt prophylaxis- he is therapeutic INR w/ coumadin Today started on diamox by cardiology. Nephrology ordered steroids for MARIA ESTHER. Plan is continue to monitor the patient and transition to oral diuretics when able. INR 2.3. Adjusted coumadin to 2.5 daily. Continue remaining regimen. 09/21 Since yesterday patient had right heart cath to evaluate severity of pulm HTN, will follow up results. Nephrology following due to patient metastatic RCC, solitary kidney and MARIA ESTHER. Discussed case w/ Dr. Stinson who notes patient needs to be gradually transitioned to some diuretic regimen. To do this without harm will take time and monitoring. He no longer has any signs of cellulitic infection, will discontinue antibiotics at this time. Continue coumadin due to history of PE. Chronically he takes 5 qd. INR 2.1 Still therapeutic. He is off lasix drip at this time. Okay for regular floor. Order placed. 09/20 Since yesterday, Cr increased. He has solitary kidney and is with mild MARIA ESTHER. Consulted nephrology tohelp protect kidney function. Discussed case with nephrology. Cardiology planning for right heart cath. Urology evaluated and noted okay to leave ochoa catheter in at this time. Penile edema improved. Noevidence cellulitis scrotum at this time. Continue current level of care for monitoring arrhythmia as cardiac meds titrated. 09/19 Today he continues to put out large volume of urine. He is overall feeling much better today. He has lost atleast 30 pounds after review of weights. Cr this am appropriate. Cl low, ordered KCl to help w/ loss and mitigate alkalosis. Continue current lasix drip. Lasix drip requires intense monitoring for drug toxicity and daily labs. Continue current regimen. This is an acute exacerbation of a chronic problem. Yesterday had CTA performed to assess PE and it was negative. Cardiology following. No contrast nephropathy identified today. Hes still on antibiotics for cellulitis. Continue the same. Diuresis also helping with patients swelling. Hes at therapeutic INR still. Started coumadin at 5mg daily as is his outpatient regimen. Discussed case w/ Dr. Newell. 09/18 Patient is admitted for acute on chronic heart failure. He was started on a Lasix drip at 10 yesterday and since then has put out over 10 L of urine. I verified with staff and technicians that this was accurate and they verified indeed he did put out at least 10 L of urine. His labs today are pending. Will follow up results. We paged labs to get them immediately given the volume he is voiding. Will pause drip until labs return. Started KCl aggressively given volume voiding to mitigate alkalosis. Goal K>4.5 Will follow up INR and see whether coumadin can be restarted. Continue cefdinir and doxy. Continue step down level of care for now with volume voiding and current electrolytes at risk severe derangement and needs cardiac monitoring. Digitally Signed by PRISCILLA BULL MD on 09/23/2023 03:19 PM [id number] Nephrology Progress note Subjective Patient seen and examined. Resting comfortably. Chart reviewed. Discussed with nursing. Objective Vitals and Measurements T: 35.9 C (Oral) TMIN: 35.9 C (Oral) TMAX: 36.6 C (Oral) HR: 70 (Apical) RR: 18 BP: 112/67 SpO2: 94% WT: 163.7 kg Intake and Output 7AM Yesterday to 7AM Today Intake and Output (Last 24 hours) Intake Oral Intake 650.00 Output Urinary Catheter Output: 4450.00 Stool Count 0.00 Total Summary Total Intake 650.00 Total Output 4450.00 Fluid Balance -3800.00 Physical Exam Gen: comfortable, No sign of any acute distress, 2 L nasal cannula HEENT: No pallor, No icterus, +4 JVD, no carotid bruit Lungs: Clear to auscultation, good air entry CVS: Regular rate and rhythm, no murmur, no rubs Abd: Soft, nontender, no organomegaly, No flank pain Neuro: Alert, no deficits Ext: +2 edema Ochoa catheter Left chest port [1] Weight Current Weight Dosing Weight: 163.7 kg (09/23/23) Current Weight: 178.5 kg (09/20/23) Dosing Weight: 158.2 kg (09/22/23) Medications Medications (26) Active Scheduled: (13) albuterol - ipratropium 2.5 mg-0.5 mg/3 mL Inhal Sejal UD 3 mL, Inhalation, QIDRT amiodarone 200 mg tablet 200 mg 1 tab(s), Oral, qDay budesonide 0.25 mg/2 mL Susp UD 0.25 mg 2 mL, Inhalation, BIDRT empagliflozin 10 mg tablet 10 mg 1 tab(s), Oral, qAM fluticasone nasal 0.05 mg/inh Polk 100 mcg 2 spray(s), Nostril, each, BID magnesium oxide 400 mg Tablet 400 mg 1 tab(s), Oral, BID metoprolol succinate 25 mg ER tablet 25 mg 1 tab(s), Oral, BID Nicoderm patch REMOVAL 1 EA, Miscellaneous, q24h nicotine 21 mg/24 hr ER patch 21 mg 1 patch(es), Transdermal, q24h No metformin for 48 hrs post contrast 1 EA, Miscellaneous, Unscheduled senna 8.6 mg Tablet 8.6 mg 1 tab(s), Oral, BID triamcinolone topical 0.1% Cream 15 Gram(s) 1 julia, Topical, BID warfarin 5 mg tablet 5 mg 1 tab(s), Oral, qDay Continuous: (0) PRN: (13) acetaminophen 325 mg Tablet 650 mg 2 tab(s), Oral, q4h acetaminophen-HYDROcodone 325-10 mg tablet 1 tab(s), Oral, q4h acetaminophen-HYDROcodone 325-5 mg tablet 1 tab(s), Oral, q4h albuterol - ipratropium 2.5 mg-0.5 mg/3 mL Inhal Sejal UD 3 mL, Inhalation, q4hRT benzonatate 100 mg Capsule 200 mg 2 cap(s), Oral, TID dextrose 50% Solution Disp syringe 50 mL 12.5 gram(s) 25 mL, IV Push, AsDirected lactulose 20 g/30 mL UD cup 20 gram(s) 30 mL, Oral, qDay melatonin 3 mg tablet 3 mg 1 tab(s), Oral, qHS melatonin 3 mg tablet 3 mg 1 tab(s), Oral, qHS ondansetron 2 mg/ 1 mL 2 mL INJ 4 mg 2 mL, IV Push, q4h polyethylene glycol 3350 - UD packet 17 gram(s) 15 mL, Oral, qDay senna 8.6 mg Tablet 17.2 mg 2 tab(s), Oral, BID sodium chloride nasal 0.65% Polk 2 spray(s), Nostril, each, q2h Lab Results 09/22 06:11 WBC: 7.0 Hgb: 14.1 Hct: 42.9 Platelet: 175 Neutrophil %: 64.3 Protime: 26.9 H PT International Ratio: 2.3 Glucose Level: 107 Sodium Level: 138 Potassium Level: 3.9 BUN: 27.0 H Creatinine Lvl (s): 1.48 H 09/21 05:03 WBC: 6.2 Hgb: 14.2 Hct: 43.5 Platelet: 180 Neutrophil %: 65.7 Protime: 24.1 H PT International Ratio: 2.1 Glucose Level: 100 Sodium Level: 139 Potassium Level: 3.8 BUN: 23.0 H Creatinine Lvl (s): 1.49 H EKG No qualifying data available. Assessment/Plan 1. Acute kidney injury with underlying chronic kidney disease baseline creatinine 1.2 to 1.3 mg/dL 2. Metastatic renal cell carcinoma on immunotherapy with NIVOLUMAB once a month 3. Diastolic heart failure 4. Pulmonary hypertension 5. Pulmonary embolism 6. Solitary functioning right kidney status post left nephrectomy 2020 7. Metabolic alkalosis [1] [2] Renal function seems to have plateaued out. Urine output is adequate. Peripheral eosinophils are noted probably suggestive of some form of interstitial nephritis. One-time dose of IV steroids for this reason. Metabolic alkalosis as a result of volume contraction Diamox already dosed by cardiology will continue to follow renal function with this measures. Loop diuretics currently on hold. Patient is auto diuresing relatively well. Replace electrolytes. Follow labs. See orders. [1] Progress Note; ANDI STINSON MD 09/22/2023 09:49 EDT [2] Progress Note; ANDI STINSON MD 09/22/2023 09:49 EDT Digitally Signed by ANDI STINSON MD on 09/23/2023 12:18 PM [id number] Cardiology Progress note Date of Service 09/23/2023 Subjective Patient SOB. No CP Objective Vitals and Measurements T: 35.9 C (Oral) TMIN: 35.9 C (Oral) TMAX: 36.7 C (Oral) HR: 70 (Apical) RR: 18 BP: 112/67 SpO2: 94% WT: 163.7 kg Intake and Output 7AM Yesterday to 7AM Today Intake and Output (Last 24 hours) Intake Oral Intake 530.00 Output Urinary Catheter Output: 4450.00 Stool Count 0.00 Total Summary Total Intake 530.00 Total Output 4450.00 Fluid Balance -3920.00 Physical Exam GENERAL: Well nourished; no acute distress. ASSISTIVE DEVICES: None. PSYCHIATRIC: Alert and oriented x 3, cooperative, mood normal, affect normal. HEAD: Normocephalic, nontraumatic head. EYES:within normal limits. ENT: within normal limits. NECK: Supple, no posterior midline tenderness. Normal range of motion. No thyromegaly noted. CARDIAC: Regular rate, regular rhythm, no murmurs noted. positive JVD. normal S1 normal S2 no S3 noS4 RESPIRATORY: Regular rate and depth; no distress, RIGHT lung clear, LEFT lung clear. Breath sounds normal. ABDOMEN: Soft, nontender. Normal bowel sounds. EXTREMITIES: Bilateral+1 lower extremity pitting edema. No lymphedema. NEURO: Cranial Nerves II-XII grossly intact; MUSCULOSKELETAL:. No scoliosis. DERM: Warm and dry. Normal turgor. No observed exanthem. No significant dandruff. Weight Current Weight Dosing Weight: 163.7 kg (09/23/23) Current Weight: 178.5 kg (09/20/23) Dosing Weight: 158.2 kg (09/22/23) Medications Medications (27) Active Scheduled: (14) acetazolamide SYRINGE 250 mg 2.5 mL, IV Push (INT), Once albuterol - ipratropium 2.5 mg-0.5 mg/3 mL Inhal Sejal UD 3 mL, Inhalation, QIDRT amiodarone 200 mg tablet 200 mg 1 tab(s), Oral, qDay budesonide 0.25 mg/2 mL Susp UD 0.25 mg 2 mL, Inhalation, BIDRT empagliflozin 10 mg tablet 10 mg 1 tab(s), Oral, qAM fluticasone nasal 0.05 mg/inh Polk 100 mcg 2 spray(s), Nostril, each, BID magnesium oxide 400 mg Tablet 400 mg 1 tab(s), Oral, BID metoprolol succinate 25 mg ER tablet 25 mg 1 tab(s), Oral, BID Nicoderm patch REMOVAL 1 EA, Miscellaneous, q24h nicotine 21 mg/24 hr ER patch 21 mg 1 patch(es), Transdermal, q24h No metformin for 48 hrs post contrast 1 EA, Miscellaneous, Unscheduled senna 8.6 mg Tablet 8.6 mg 1 tab(s), Oral, BID triamcinolone topical 0.1% Cream 15 Gram(s) 1 julia, Topical, BID warfarin 5 mg tablet 5 mg 1 tab(s), Oral, qDay Continuous: (0) PRN: (13) acetaminophen 325 mg Tablet 650 mg 2 tab(s), Oral, q4h acetaminophen-HYDROcodone 325-10 mg tablet 1 tab(s), Oral, q4h acetaminophen-HYDROcodone 325-5 mg tablet 1 tab(s), Oral, q4h albuterol - ipratropium 2.5 mg-0.5 mg/3 mL Inhal Sejal UD 3 mL, Inhalation, q4hRT benzonatate 100 mg Capsule 200 mg 2 cap(s), Oral, TID dextrose 50% Solution Disp syringe 50 mL 12.5 gram(s) 25 mL, IV Push, AsDirected lactulose 20 g/30 mL UD cup 20 gram(s) 30 mL, Oral, qDay melatonin 3 mg tablet 3 mg 1 tab(s), Oral, qHS melatonin 3 mg tablet 3 mg 1 tab(s), Oral, qHS ondansetron 2 mg/ 1 mL 2 mL INJ 4 mg 2 mL, IV Push, q4h polyethylene glycol 3350 - UD packet 17 gram(s) 15 mL, Oral, qDay senna 8.6 mg Tablet 17.2 mg 2 tab(s), Oral, BID sodium chloride nasal 0.65% [place] 2 spray(s), Nostril, each, q2h Lab Results 09/22 06:11 WBC: 7.0 Hgb: 14.1 Hct: 42.9 Platelet: 175 Neutrophil %: 64.3 Protime: 26.9 H PT International Ratio: 2.3 Glucose Level: 107 Sodium Level: 138 Potassium Level: 3.9 BUN: 27.0 H Creatinine Lvl (s): 1.48 H 09/21 05:03 WBC: 6.2 Hgb: 14.2 Hct: 43.5 Platelet: 180 Neutrophil %: 65.7 Protime: 24.1 H PT International Ratio: 2.1 Glucose Level: 100 Sodium Level: 139 Potassium Level: 3.8 BUN: 23.0 H Creatinine Lvl (s): 1.49 H EKG No qualifying data available. Assessment/Plan Orders: acetaZOLAMIDE(Diamox), 250 mg= 2.5 mL, IV Push (INT), Once empagliflozin(Jardiance), 10 mg= 1 tab(s), Oral, qAM Basic Metabolic Panel(BMP), 09/24/23 5:00:00 EDT, Next AM Draw (one day only), Blood, Once, Preferred Lab: [facility], Stop date 09/24/23 5:00:00 EDT N-Terminal proBNP(BNP), 09/24/23 5:00:00 EDT, Next AM Draw (one day only), Blood, Once, Preferred Lab: [facility], Stop date 09/24/23 5:00:00 EDT IMPRESSON: 1. Acute HFpEF. Has fluid overload CTA negative for PE Elevated proBNP [2067] Moderate TR 2. Hx of atrial flutter [07/2022, on amiodarone, lopressor & Coumadin and for PE], BONNIE on 07/2022 showing multiple irregular masses in the RA cavity concerning for thrombus [transferred to [place] had a clot removal], Hx of PE [right PE] with acute clot burden status post EKOS [on Coumadin] 3. Hx of RCC, metastatic status post left nephrectomy 4. ARF stable Off diuretic per renal service PLAN: See orders Digitally Signed by MERLY PATEL MD on 09/23/2023 10:40 AM [id number] Note Date of Service 09/22/23 Subjective 43-year-old male with a history of metastatic renal cell carcinoma status post left-sided nephrectomy in 2020, HFpEF, obesity, COPD, PE on Coumadin, smoker and alcohol abuse presented due to bilateral lower extremity swelling, orthopnea, 40 pound weight gain, increased swelling in scrotum. He was admitted to [facility] for management heart failure then transferred to [facility] for evaluation by [facility] ridology service. He was started on lasix drip at 10 ggt and put out 10L of urine over 24 hours. Continued on antibiotics for cellulitis of the scrotum identified on imaging without any associated sepsis. He diuresed over 20L of urine. Underwent CTA due to history of PE with concern for strain which was negative. Right heart cath performed and results are pending. Nephrology followed due to acutekidney injury, presence of solitary kidney, and metastatic renal cell carcinoma. Plan is to transition patient to an oral diuretic regimen gradually. No new complaints today. Tolerating his diet without nausea or vomiting. Objective Vitals and Measurements T: 36.6 C (Oral) TMIN: 35.9 C (Axillary) TMAX: 37.0 C (Axillary) HR: 71 RR: 20 BP: 122/78 SpO2: 95%WT: 158.2 kg Intake and Output 7AM Yesterday to 7AM Today Intake and Output (Last 24 hours) Intake Oral Intake 1500.00 Output Urinary Catheter Output: 5300.00 Stool Count 0.00 Total Summary Total Intake 1500.00 Total Output 5300.00 Fluid Balance -3800.00 Physical Exam general: laying flat in bed appears comfortable cardiac: RRR Weight Current Weight Dosing Weight: 158.2 kg (09/22/23) Current Weight: 178.5 kg (09/20/23) Dosing Weight: 168.3 kg (09/21/23) Medications Medications (25) Active Scheduled: (12) albuterol - ipratropium 2.5 mg-0.5 mg/3 mL Inhal Sejal UD 3 mL, Inhalation, QIDRT amiodarone 200 mg tablet 200 mg 1 tab(s), Oral, qDay budesonide 0.25 mg/2 mL Susp UD 0.25 mg 2 mL, Inhalation, BIDRT fluticasone nasal 0.05 mg/inh [place] 100 mcg 2 spray(s), Nostril, each, BID magnesium oxide 400 mg Tablet 400 mg 1 tab(s), Oral, BID metoprolol succinate 25 mg ER tablet 25 mg 1 tab(s), Oral, BID Nicoderm patch REMOVAL 1 EA, Miscellaneous, q24h nicotine 21 mg/24 hr ER patch 21 mg 1 patch(es), Transdermal, q24h No metformin for 48 hrs post contrast 1 EA, Miscellaneous, Unscheduled senna 8.6 mg Tablet 8.6 mg 1 tab(s), Oral, BID triamcinolone topical 0.1% Cream 15 Gram(s) 1 julia, Topical, BID warfarin 5 mg tablet 5 mg 1 tab(s), Oral, qDay Continuous: (0) PRN: (13) acetaminophen 325 mg Tablet 650 mg 2 tab(s), Oral, q4h acetaminophen-HYDROcodone 325-10 mg tablet 1 tab(s), Oral, q4h acetaminophen-HYDROcodone 325-5 mg tablet 1 tab(s), Oral, q4h albuterol - ipratropium 2.5 mg-0.5 mg/3 mL Inhal Sejal UD 3 mL, Inhalation, q4hRT benzonatate 100 mg Capsule 200 mg 2 cap(s), Oral, TID dextrose 50% Solution Disp syringe 50 mL 12.5 gram(s) 25 mL, IV Push, AsDirected lactulose 20 g/30 mL UD cup 20 gram(s) 30 mL, Oral, qDay melatonin 3 mg tablet 3 mg 1 tab(s), Oral, qHS melatonin 3 mg tablet 3 mg 1 tab(s), Oral, qHS ondansetron 2 mg/ 1 mL 2 mL INJ 4 mg 2 mL, IV Push, q4h polyethylene glycol 3350 - UD packet 17 gram(s) 15 mL, Oral, qDay senna 8.6 mg Tablet 17.2 mg 2 tab(s), Oral, BID sodium chloride nasal 0.65% [place] 2 spray(s), Nostril, each, q2h Lab Results 09/21 05:03 WBC: 6.2 Hgb: 14.2 Hct: 43.5 Platelet: 180 Neutrophil %: 65.7 Protime: 24.1 H PT International Ratio: 2.1 Glucose Level: 100 Sodium Level: 139 Potassium Level: 3.8 BUN: 23.0 H Creatinine Lvl (s): 1.49 H 09/20 03:54 WBC: 6.1 Hgb: 13.8 Hct: 42.3 Platelet: 199 Neutrophil %: 66.5 Protime: 25.3 H Protime: 25.1 H PT International Ratio: 2.2 PT International Ratio: 2.2 Glucose Level: 101 Sodium Level: 141 Potassium Level: 4.1 BUN: 20.0 Creatinine Lvl (s): 1.43 H EKG No qualifying data available. Assessment/Plan Acute on chronic diastolic heart failure Renal cell carcinoma status post left nephrectomy Metastatic renal cell carcinoma on immunotherapy with NIVOLUMAB once a month Acute kidney injury multifactorial Cellulitis of the abdomen History of pulmonary embolism chronically on Coumadin Class III obesity Cigarette smoker Alcohol use disorder without dependence or withdrawal Chronic lower back pain Chronic constipation dvt prophylaxis- he is therapeutic INR w/ coumadin Since yesterday patient had right heart cath to evaluate severity of pulm HTN, will follow up results. Nephrology following due to patient metastatic RCC, solitary kidney and MARIA ESTHER. Discussed case w/ Dr. Stinson who notes patient needs to be gradually transitioned to some diuretic regimen. To do this without harm will take time and monitoring. He no longer has any signs of cellulitic infection, will discontinue antibiotics at this time. Continue coumadin due to history of PE. Chronically he takes 5 qd. INR 2.1 Still therapeutic. He is off lasix drip at this time. Okay for regular floor. Order placed. 09/20 Since yesterday, Cr increased. He has solitary kidney and is with mild MARIA ESTHER. Consulted nephrology tohelp protect kidney function. Discussed case with nephrology. Cardiology planning for right heart cath. Urology evaluated and noted okay to leave ochoa catheter in at this time. Penile edema improved. Noevidence cellulitis scrotum at this time. Continue current level of care for monitoring arrhythmia as cardiac meds titrated. 09/19 Today he continues to put out large volume of urine. He is overall feeling much better today. He has lost atleast 30 pounds after review of weights. Cr this am appropriate. Cl low, ordered KCl to help w/ loss and mitigate alkalosis. Continue current lasix drip. Lasix drip requires intense monitoring for drug toxicity and daily labs. Continue current regimen. This is an acute exacerbation of a chronic problem. Yesterday had CTA performed to assess PE and it was negative. Cardiology following. No contrast nephropathy identified today. Hes still on antibiotics for cellulitis. Continue the same. Diuresis also helping with patients swelling. Hes at therapeutic INR still. Started coumadin at 5mg daily as is his outpatient regimen. Discussed case w/ Dr. Newell. 09/18 Patient is admitted for acute on chronic heart failure. He was started on a Lasix drip at 10 yesterday and since then has put out over 10 L of urine. I verified with staff and technicians that this was accurate and they verified indeed he did put out at least 10 L of urine. His labs today are pending. Will follow up results. We paged labs to get them immediately given the volume he is voiding. Will pause drip until labs return. Started KCl aggressively given volume voiding to mitigate alkalosis. Goal K>4.5 Will follow up INR and see whether coumadin can be restarted. Continue cefdinir and doxy. Continue step down level of care for now with volume voiding and current electrolytes at risk severe derangement and needs cardiac monitoring. Anticipated Date of Discharge ~ Digitally Signed by PRISCILLA BULL MD on 09/22/2023 03:05 PM [id number] Urology Progress note Date of Service 09/21/2023 History of Present Illness Patient overall feeling well. Evaluated by nephrology for slight increase in creatinine level and diuretics are being held. Urine output on Lasix drip over the last several days with significant volume loss. Physical Exam Vitals and Measurements T: 36.8 C (Oral) TMIN: 36.0 C (Oral) TMAX: 37.2 C (Oral) HR: 70 (Monitored) RR: 18 BP: 108/88 SpO2:94% WT: 168.3 kg Weight Current Weight Dosing Weight: 168.3 kg (09/21/23) Current Weight: 178.5 kg (09/20/23) Dosing Weight: 193.2 kg (09/18/23) Abdomen is soft. There is decreased scrotal and penile edema. I do not detect any evidence of scrotal cellulitis or crepitus. Still could not identify the glans penis and meatus because of edematous penile shaft skin. Ochoa is draining clear Lab Results 09/20 03:54 WBC: 6.1 Hgb: 13.8 Hct: 42.3 Platelet: 199 Neutrophil %: 66.5 Protime: 25.3 H Protime: 25.1 H PT International Ratio: 2.2 PT International Ratio: 2.2 Glucose Level: 101 Sodium Level: 141 Potassium Level: 4.1 BUN: 20.0 Creatinine Lvl (s): 1.43 H 09/19 15:13 WBC: 6.6 Hgb: 13.3 Hct: 41.0 Platelet: 190 Neutrophil %: 69.5 09/19 13:48 Protime: 26.6 H PT International Ratio: 2.3 09/19 04:23 WBC: 5.8 Hgb: 13.6 Hct: 41.6 Platelet: 212 Neutrophil %: 66.6 Glucose Level: 97 Sodium Level: 140 Potassium Level: 4.0 BUN: 20.0 Creatinine Lvl (s): 1.26 Assessment/Plan 1. 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 There was bony metastatic disease on imaging in the past including a T11 lytic lesion with compression deformity. Overall patient has been stable from an oncological standpoint. Renal functionnormal 2. History of atrial thrombus pulmonary embolism 08/05 status post thrombectomy at the [facility] patient usually on long-term anticoagulation with Coumadin. Current INR elevated at 3.8. 3. scrotal cellulitis which is improving IV antibiotics. Significantly improved on examination today. No findings to suggest necrotizing fasciitis 4. Volume overload requiring Lasix drip with need to place Ochoa catheter to monitor volume status 5. Acute injury with slight rising creatinine level and solitary kidney. Reviewed nephrology note. Diuretics being held temporarily. 6. Significant penile and scrotal edema with retracted none palpable or visualized glans penis or meatus status post cystoscopic placement of Ochoa catheter over a wire on 09/18/2023 At this point we will maintain Ochoa catheter. Urology will sign off and okay to remove Ochoa catheter once patient appears to be euvolemic and further workup including any invasive procedures are complete. Problem List/Past Medical History Ongoing Alcohol abuse Left renal mass. 9.6-cm. With perinephric fat invasion. With lytic bony lesion and pulmonary nodules concerning for mets. BS, 07/2020 - neg. CT brain, 07/2020 - neg. S/P Radical nephrectomy 08/14/20. Metastatic renal cell carcinoma. S/P Left cytoreductive nephrectomy 08/14/20. Final path - ccRCC withsarcomatoid features. Morbid obesity due to excess calories No chronic diseases present T11 vertebral fracture Tobacco abuse Viral gastroenteritis Cigarette smoker Active Lung nodule, multiple Active Marijuana user Active Secondary malignant neoplasm of bone (disorder) Active Historical Renal cell carcinoma (disorder) Active Procedure/Surgical History Open heart surgery: 08/17/22 Tooth extraction: 08/28/21 Nephrectomy, including partial ureterectomy, any open approach including rib resection; radical, with regional lymphadenectomy and/or vena caval thrombectomy: 08/14/20 Tonsillectomy Boost radiation therapy Chemotherapy Medications Inpatient amiodarone, 200 mg= 1 tab(s), Oral, qDay cefdinir, 300 mg= 1 cap(s), Oral, BID Dextrose 50% IV Push, 12.5 gram(s)= 25 mL, IV Push, AsDirected, PRN doxycycline DuoNeb, 3 mL, Inhalation, q4hRT, PRN DuoNeb 0.5 mg - 2.5 mg/3 mL inhalation soln, 3 mL, Inhalation, QIDRT Flonase 50 mcg/inh nasal spray, 100 mcg= 2 spray(s), Nostril, each, BID lactulose, 20 gram(s)= 30 mL, Oral, qDay, PRN Lasix, 40 mg= 4 mL, IV Push, BID magnesium oxide, 400 mg= 1 tab(s), Oral, BID melatonin, 3 mg= 1 tab(s), Oral, qHS, PRN melatonin, 3 mg= 1 tab(s), Oral, qHS, PRN Miralax Powder Packet, 17 gram(s)= 15 mL, Oral, qDay, PRN Nicoderm C-Q 21 mg/24 hr transdermal film, extended release, 21 mg= 1 patch(es), Transdermal, q24h nicotine (Nicoderm Patch REMOVAL), 1 EA, Miscellaneous, q24h [place] 325- 5 mg oral tablet, 1 tab(s), Oral, q4h, PRN [place] 325-10 mg oral tablet, 1 tab(s), Oral, q4h, PRN Pulmicort Respules 0.25 mg/2 mL inhalation suspension, 0.25 mg= 2 mL, Inhalation, BIDRT Saline Mist, 2 spray(s), Nostril, each, q2h, PRN senna, 8.6 mg= 1 tab(s), Oral, BID senna (sennosides) 8.6 mg oral tablet, 17.2 mg= 2 tab(s), Oral, BID, PRN Tessalon Perles, 200 mg= 2 cap(s), Oral, TID, PRN Toprol-XL, 25 mg= 1 tab(s), Oral, BID triamcinolone 0.1% topical cream, 1 julia, Topical, BID Tylenol, 650 mg= 2 tab(s), Oral, q4h, PRN warfarin, 5 mg= 1 tab(s), Oral, qDay Zofran, 4 mg= 2 mL, IV Push, q4h, PRN Home amiodarone 200 mg oral tablet, 200 mg= 1 tab(s), Oral, qDay cephalexin 500 mg oral capsule clindamycin 1% topical lotion, 1 julia, Topical, BID ketoconazole 2% topical shampoo Lopressor 25mg--USE metoprolol tartrate 25 mg oral tablet, BID oxyCODONE 5 mg oral tablet ( IMMEDIATE release ), 5 mg= 1 tab(s), Oral, q8h, PRN PURELAX 17 GRAM/DOSE POWDER (GRAM), 1cup powder, Oral, qDay, PRN senna (sennosides) 8.6 mg oral tablet, 17.2 mg= 2 tab(s), Oral, BID, PRN, 3 refills Stiolto Respimat 60 ACT 2.5 mcg-2.5 mcg/inh inhalation aerosol, 2 puff(s), Inhalation, q24h, 11 refills Trelegy Ellipta 100 mcg-62.5 mcg-25 mcg/inh inhalation powder, 1 puff(s), Inhalation, qDay, 11 refills triamcinolone 0.1% topical cream, 1 julia, Topical, BID warfarin 5 mg oral tablet warfarin 5 mg oral tablet, 2.5 mg= 0.5 tab(s), Oral, qDay, 11 refills Allergies penicillin Swelling Social History Smoking Status - 11/07/2016 Current every day smoker Alcohol - Medium Risk, 11/07/2016 Use: Past. Type: Beer. Frequency: Daily. Previous treatment: Outpatient. Has alcohol use interferedwith work or home life: No. Do you ever drink more than intended: Yes. Has anyone been hurt or at risk by your drinking: Yes. Ready to change: Yes., 04/14/2023 Employment/School Status: Employed., 12/16/2020 Home/Environment Domestic Concerns: None. Living situation: Home with assistance. 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 Safe place to go: Yes. Lives In: Single level home, 1st floor bedroom, 1st floor bathroom, 1st floor laundry., 08/14/2020 Nutrition/Health Caffeine intake amount: couple bottles a week., 10/20/2022 Type of diet: Regular. Appetite Excellent. Eating Difficulties None., 08/14/2020 Substance Abuse - Denies Substance Abuse, 11/07/2016 Use: Current. Type: Marijuana. Frequency: 1-2 times per month. IV drug use; No. Ready to change: No. Concerns about substance abuse in household: No., 08/14/2020 Tobacco Nicotine Use: 10 or more cigarettes (1/2 pack or more)/day in last 30 days, Quit July; started again the end of August or beginning of September. Type: Cigarettes. Started at age: 13 Years. Ready to change: Yes., 10/20/2022 Family History Bladder cancer: Negative: Mother, Father, Sister, Brother, Daughter, Son and Grandparent. Crohn's disease: Sister. Diabetes: Father. HTN - Hypertension: Mother and Father. Heart attack: Father. Heart disease: Negative: Mother, Father, Sister, Brother, Daughter, Son and Grandparent. Hypertension: Mother and Father.Negative: Sister, Brother, Daughter, Son and Grandparent. Kidney disease: Negative: Mother, Father, Sister, Brother, Daughter, Son and Grandparent. Kidney stone: Mother and Sister.Negative: Father, Brother, Daughter, Son and Grandparent. Prostate cancer: Negative: Father, Brother and Son. Renal cancer: Negative: Mother, Father, Sister, Brother, Daughter, Son and Grandparent. Rheumatoid arthritis: Mother. Health Status Family Member(s) Immunizations SARS-CoV-2 (COVID-19) mRNA-1273 vaccine: 0.25 unknown unit (04/15/21) SARS-CoV-2 (COVID-19) mRNA-1273 vaccine: 0.5 unknown unit (10/15/20) SARS-CoV-2 (COVID-19) mRNA-1273 vaccine: 0.5 unknown unit (09/17/20) Digitally Signed by LIAN BERNARD MD on 09/21/2023 04:01 PM [id number] Consult note Date of Service September 21, 2023 Reason for Consultation Renal sufficiency Referring Physician Hospitalist History of Present Illness 43-year-old gentleman who has a history of renal cell carcinoma status post left-sided nephrectomy in 2020, biopsy showing ccRCC with sarcomatoid features and secondary malignancy of the bone followswith Dr. Bhavik Triana patient is receiving immunotherapy once a month with,NIVOLUMAB, pulmonary embolism on Coumadin, and apparent history of HFpEF echocardiogram done on this hospitalization September 14 showing an ejection fraction of 55 to 60% aortic valve thickening and sclerosis RV systolic pressure 60 mmHg. The IVC is dilated. In addition to this patient has renal sufficiency with a creatinine 1.43 mg/dL. We have been asked to see and comment for this reason. Patient initially presented with acute kidney injury with a creatinine of around 1.52 mg/dL. Which then peaked to as high as 1.6 mg/dL and for a while there had somewhat stabilized around 1.26 mg/dL. Looking at his previous trends and creatinine patient's baseline creatinine is anywhere between 1.3 to 1.4 mg/dL. He underwent a CT angiogram on September 18 which showed him to have no evidence of any pulmonary embolism mediastinal adenopathy very similar to prior studies. CT abdomen and pelvis which was done on September 12, 2023 showed him to have findings of cellulitis involving the pannus without any soft tissue air organization. The kidneys itself demonstrated no hydronephrosis within the right kidney. The right ureter and the bladder was unremarkable. He does have a Ochoa catheter in place. Diuresing relatively well. He is put outalmost 10 L. Otherwise patient is resting comfortably send 2 L of oxygen. He denies being any more short of breath. No chest pain no palpitations no nausea vomiting no fever chills no gross blood in stools or urine no rash or any recent weight loss. Review of Systems Gen: comfortable, No sign of any acute distress, 2 L nasal cannula HEENT: No pallor, No icterus, +4 JVD, no carotid bruit Lungs: Clear to auscultation, good air entry CVS: Regular rate and rhythm, no murmur, no rubs Abd: Soft, nontender, no organomegaly, No flank pain Neuro: Alert, no deficits Ext: +2 edema Ochoa catheter Left chest port Physical Exam Vitals and Measurements T: 36.1 C (Oral) TMIN: 36.0 C (Oral) TMAX: 37.2 C (Oral) HR: 66 RR: 20 BP: 157/93 SpO2: 99% WT: 168.3 kg Weight Current Weight Dosing Weight: 168.3 kg (09/21/23) Current Weight: 178.5 kg (09/20/23) Dosing Weight: 193.2 kg (09/18/23) Lab Results 09/20 03:54 WBC: 6.1 Hgb: 13.8 Hct: 42.3 Platelet: 199 Neutrophil %: 66.5 Protime: 25.3 H Protime: 25.1 H PT International Ratio: 2.2 PT International Ratio: 2.2 Glucose Level: 101 Sodium Level: 141 Potassium Level: 4.1 BUN: 20.0 Creatinine Lvl (s): 1.43 H 09/19 15:13 WBC: 6.6 Hgb: 13.3 Hct: 41.0 Platelet: 190 Neutrophil %: 69.5 09/19 13:48 Protime: 26.6 H PT International Ratio: 2.3 09/19 04:23 WBC: 5.8 Hgb: 13.6 Hct: 41.6 Platelet: 212 Neutrophil %: 66.6 Glucose Level: 97 Sodium Level: 140 Potassium Level: 4.0 BUN: 20.0 Creatinine Lvl (s): 1.26 Assessment/Plan 1. Acute kidney injury with underlying chronic kidney disease baseline creatinine 1.2 to 1.3 mg/dL 2. Metastatic renal cell carcinoma on immunotherapy with NIVOLUMAB once a month 3. Diastolic heart failure 4. Pulmonary hypertension 5. Pulmonary embolism 6. Solitary functioning right kidney status post left nephrectomy 2020 7. Metabolic alkalosis Renal sufficiency likely reflective of contrast nephropathy and a component of prerenal state from being aggressive diuresised. For now agree with holding diuretics, restart once renal function back to baseline. Metabolic alkalosis probably reflective of volume contraction, Will get an ABG to evaluate this further. Otherwise patient has a hyperfiltrating solitary right kidney as a result of left nephrectomy. Would anticipate some fluctuation in GFR with this. For now we will just continue to follow labs. Anticipate renal function should improve by diuretic holiday. Replace electrolytes. Meanwhile it is important to maintain renal protective measures: 1. Maintain mean arterial pressure greater than 65 2. Avoid any nephrotoxins such as NSAIDs and limit the use of contrast This document was transcribed via voice recognition software and may contain typographical errors. Problem List/Past Medical History Ongoing Alcohol abuse Left renal mass. 9.6-cm. With perinephric fat invasion. With lytic bony lesion and pulmonary nodules concerning for mets. BS, 07/2020 - neg. CT brain, 07/2020 - neg. S/P Radical nephrectomy 08/14/20. Metastatic renal cell carcinoma. S/P Left cytoreductive nephrectomy 08/14/20. Final path - ccRCC withsarcomatoid features. Morbid obesity due to excess calories No chronic diseases present T11 vertebral fracture Tobacco abuse Viral gastroenteritis Cigarette smoker Active Lung nodule, multiple Active Marijuana user Active Secondary malignant neoplasm of bone (disorder) Active Historical Renal cell carcinoma (disorder) Active Procedure/Surgical History Open heart surgery: 08/17/22 Tooth extraction: 08/28/21 Nephrectomy, including partial ureterectomy, any open approach including rib resection; radical, with regional lymphadenectomy and/or vena caval thrombectomy: 08/14/20 Tonsillectomy Boost radiation therapy Chemotherapy Medications Inpatient amiodarone, 200 mg= 1 tab(s), Oral, qDay cefdinir, 300 mg= 1 cap(s), Oral, BID Dextrose 50% IV Push, 12.5 gram(s)= 25 mL, IV Push, AsDirected, PRN doxycycline DuoNeb, 3 mL, Inhalation, q4hRT, PRN DuoNeb 0.5 mg - 2.5 mg/3 mL inhalation soln, 3 mL, Inhalation, QIDRT Flonase 50 mcg/inh nasal spray, 100 mcg= 2 spray(s), Nostril, each, BID lactulose, 20 gram(s)= 30 mL, Oral, qDay, PRN Lasix, 40 mg= 4 mL, IV Push, BID magnesium oxide, 400 mg= 1 tab(s), Oral, BID melatonin, 3 mg= 1 tab(s), Oral, qHS, PRN melatonin, 3 mg= 1 tab(s), Oral, qHS, PRN Miralax Powder Packet, 17 gram(s)= 15 mL, Oral, qDay, PRN Nicoderm C-Q 21 mg/24 hr transdermal film, extended release, 21 mg= 1 patch(es), Transdermal, q24h nicotine (Nicoderm Patch REMOVAL), 1 EA, Miscellaneous, q24h [place] 325- 5 mg oral tablet, 1 tab(s), Oral, q4h, PRN [place] 325-10 mg oral tablet, 1 tab(s), Oral, q4h, PRN Pulmicort Respules 0.25 mg/2 mL inhalation suspension, 0.25 mg= 2 mL, Inhalation, BIDRT Saline Mist, 2 spray(s), Nostril, each, q2h, PRN senna, 8.6 mg= 1 tab(s), Oral, BID senna (sennosides) 8.6 mg oral tablet, 17.2 mg= 2 tab(s), Oral, BID, PRN Tessalon Perles, 200 mg= 2 cap(s), Oral, TID, PRN Toprol-XL, 25 mg= 1 tab(s), Oral, BID triamcinolone 0.1% topical cream, 1 julia, Topical, BID Tylenol, 650 mg= 2 tab(s), Oral, q4h, PRN warfarin, 5 mg= 1 tab(s), Oral, qDay Zofran, 4 mg= 2 mL, IV Push, q4h, PRN Home amiodarone 200 mg oral tablet, 200 mg= 1 tab(s), Oral, qDay cephalexin 500 mg oral capsule clindamycin 1% topical lotion, 1 julia, Topical, BID ketoconazole 2% topical shampoo Lopressor 25mg--USE metoprolol tartrate 25 mg oral tablet, BID oxyCODONE 5 mg oral tablet ( IMMEDIATE release ), 5 mg= 1 tab(s), Oral, q8h, PRN PURELAX 17 GRAM/DOSE POWDER (GRAM), 1cup powder, Oral, qDay, PRN senna (sennosides) 8.6 mg oral tablet, 17.2 mg= 2 tab(s), Oral, BID, PRN, 3 refills Stiolto Respimat 60 ACT 2.5 mcg-2.5 mcg/inh inhalation aerosol, 2 puff(s), Inhalation, q24h, 11 refills Trelegy Ellipta 100 mcg-62.5 mcg-25 mcg/inh inhalation powder, 1 puff(s), Inhalation, qDay, 11 refills triamcinolone 0.1% topical cream, 1 julia, Topical, BID warfarin 5 mg oral tablet warfarin 5 mg oral tablet, 2.5 mg= 0.5 tab(s), Oral, qDay, 11 refills Allergies penicillin Swelling Social History Smoking Status - 11/07/2016 Current every day smoker Alcohol - Medium Risk, 11/07/2016 Use: Past. Type: Beer. Frequency: Daily. Previous treatment: Outpatient. Has alcohol use interferedwith work or home life: No. Do you ever drink more than intended: Yes. Has anyone been hurt or at risk by your drinking: Yes. Ready to change: Yes., 04/14/2023 Employment/School Status: Employed., 12/16/2020 Home/Environment Domestic Concerns: None. Living situation: Home with assistance. 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 Safe place to go: Yes. Lives In: Single level home, 1st floor bedroom, 1st floor bathroom, 1st floor laundry., 08/14/2020 Nutrition/Health Caffeine intake amount: couple bottles a week., 10/20/2022 Type of diet: Regular. Appetite Excellent. Eating Difficulties None., 08/14/2020 Substance Abuse - Denies Substance Abuse, 11/07/2016 Use: Current. Type: Marijuana. Frequency: 1-2 times per month. IV drug use; No. Ready to change: No. Concerns about substance abuse in household: No., 08/14/2020 Tobacco Nicotine Use: 10 or more cigarettes (1/2 pack or more)/day in last 30 days, Quit July; started again the end of August or beginning of September. Type: Cigarettes. Started at age: 13 Years. Ready to change: Yes., 10/20/2022 Family History Bladder cancer: Negative: Mother, Father, Sister, Brother, Daughter, Son and Grandparent. Crohn's disease: Sister. Diabetes: Father. HTN - Hypertension: Mother and Father. Heart attack: Father. Heart disease: Negative: Mother, Father, Sister, Brother, Daughter, Son and Grandparent. Hypertension: Mother and Father.Negative: Sister, Brother, Daughter, Son and Grandparent. Kidney disease: Negative: Mother, Father, Sister, Brother, Daughter, Son and Grandparent. Kidney stone: Mother and Sister.Negative: Father, Brother, Daughter, Son and Grandparent. Prostate cancer: Negative: Father, Brother and Son. Renal cancer: Negative: Mother, Father, Sister, Brother, Daughter, Son and Grandparent. Rheumatoid arthritis: Mother. Health Status Family Member(s) Immunizations SARS-CoV-2 (COVID-19) mRNA-1273 vaccine: 0.25 unknown unit (04/15/21) SARS-CoV-2 (COVID-19) mRNA-1273 vaccine: 0.5 unknown unit (10/15/20) SARS-CoV-2 (COVID-19) mRNA-1273 vaccine: 0.5 unknown unit (09/17/20) Digitally Signed by ANDI STINSON MD on 09/21/2023 11:18 AM [id number] ORIGINAL EXAMINATION: CTA OF THE CHEST 09/19/2023 3:25 pm TECHNIQUE: CTA of the chest was performed after the administration of intravenous contrast. Multiplanar reformatted images are provided for review. MIP images are provided for review. Automated exposure control, iterative reconstruction, and/or weight based adjustment of the mA/kV was utilized to reduce the radiation dose to as low as reasonably achievable. COMPARISON: July 20, 2023 HISTORY: ORDERING SYSTEM PROVIDED HISTORY: Reason for Exam: r/o [place], Hx of large PE FINDINGS: T11 compression deformity with some adjacent lucency is evident, very similar to the prior exam. There are degenerative changes in the spine. No acute osseous abnormality identified. Small scattered areas of pulmonary and pleural scarring are visible. A small amount of right pleural fluid is evident, new since the previous study. No focal area of consolidation is identified. No left-sided pleural fluid seen. Mediastinal adenopathy is evident, fairly similar to the previous study. No pulmonary artery defect is identified on this exam. No additional contributory abnormality. IMPRESSION: 1. No evidence for pulmonary embolism. 2. Stable T11 compression deformity. 3. Mediastinal adenopathy is very similar to the prior study. 4. New small right pleural effusion. Interpreted by: Rachell Dennis MD Preliminary Report By: Rachell Dennis MD Electronically signed By Rachell Dennis MD Dictated Date: 09/19/2023 3:31:21 PM Prelim Date: 09/19/2023 3:34:51 PM Sign Date: 09/19/2023 3:34:51 PM Ordering Provider: [facility]08-05-2024 Cardiology Consult note Date of Service 09/18/2023 Reason for Consultation Diuresis, heart failure Referring Physician Dr. Duque History of Present Illness 43-year-old male morbidly obese male with PMH of atrial flutter [07/2022, on amiodarone, lopressor and Coumadin], BONNIE on 07/2022 showing multiple irregular masses in the RA cavity concerning for thrombus [transferred to [place] had a clot removal, PE with acute clot burden status post EKOS, CAD [mild nonobstructive CAD, [facility] on 08/15/2022], alcohol abuse [10 beers daily, down to 10 beer 3-4 times a week], tobacco abuse, metastatic RCC [s/p left nephrectomy 08/2020, radiation chemo [, T11 vertebral body fracture electrolyte occlusion, AKHIL [not using CPAP], COPD presented to the hospital and transferred from [facility] because of increased lower extremity swelling and difficulty lying flat. It was also noticed that his scrotum is increasing swelling in his abdominal girth increasing having difficulty lying flat because of shortness of breath and back pain. Patient also had runny nose and a cough went to the emergency department. CT abdomen pelvis found to have cellulitis of her pannusand ultrasound scrotum found to have cellulitis with swelling. Patient was started on antibiotics for cellulitis. Patient was started on IV Lasix 20 mg twice daily for acute fluid overload. Found to have INR supratherapeutic at 3.8 on transfer to [facility]. On examining the patient today patient was lying flat on the bed with supplemental 2 L oxygenation.He denied any taking any diuresis at home. After the surgery last year for the clot removal, patient has been feeling shortness of breath on walking, he is able to lie flat. However, he still continues to smoke and have alcohol abuse which is declining. Recently patient had a UTI as well and now came with the cellulitis picture. Cardiology consulted for the diuresis effect and the GDMT. Echo on 09/15/2023: technically limited due to body habitus. 8 ml of intravenous contrast (Definity) was administered to opacify the LV. 2. Left ventricle: The cavity size is normal. Wall thickness is mildly increased. Systolic functionis normal. The estimated ejection fraction is 55-60%. Regional wall motion abnormalities cannot be excluded. Unable to assess diastolic function. 3. Aortic valve: Thickening, consistent with sclerosis. 4. Right ventricle: The cavity size is moderately to severely increased. Systolic function is reduced. Systolic pressure is increased. The RV systolic pressure by Doppler is 60 mm Hg. 5. Tricuspid valve: There is moderate regurgitation. 6. Right atrium: The atrium is dilated. The estimated right atrial pressure is 15 mm Hg. 7. Inferior vena cava: The IVC is dilated. Review of Systems General: Denies fever, chills, night sweats, Weight changes Skin: Denies rash itching bruising Head: Denies headache or trauma Eyes: Denies blurred double vision vision loss or any vision changes ENT: Denies hearing loss or ringing in ears, ear pain, ear drainage, nasal drainage sinus congestion, sneezing, bloody noses or sore throat Respiratory: Denies cough, shortness of breath, hemoptysis or sputum productive Cardiovascular: Denies chest pain, orthopnea, palpitations, dyspnea on exertion, edema or intermittent claudication GI: Denies abdominal pain,constipation, appetite changes, bloody or dark tarry stools or blood in emesis : Positive scrotal swelling and pain discomfort Musculoskeletal: Denies muscle weakness joint pain redness or swelling Neurological: Denies loss of consciousness, numbness, tingling, weakness in extremities changes in speech, fainting or seizures Psych: Denies depression, racing thoughts, anxiety Endocrine: Denies polyuria, polydipsia, polyphagia, heat or cold intolerances, Heme: Denies easy bruising, history of anemia, petechiae or purpura Physical Exam Vitals and Measurements T: 36.4 C (Oral) HR: 88 (Apical) RR: 22 BP: 135/104 SpO2: 93% HT: 172.7 cm WT: 193.2 kg BMI: 64.78 Weight Dosing Weight: 193.2 kg (09/18/23) GEN: Morbidly obese. Alert and interactive. HEENT: NC/AT. PERRLA, EOMI. Normal external auditory canal and tympanic membrane. NECK: Supple. Normal ROM. Trachea midline. No LAD, no thyromegaly. RESPIRATORY: Normal respiratory effort. CTABL. CVS: RRR. Normal S1/S2. No M/R/G. No JVD. ABDOMEN: Soft, non-tender, non-distended. +BS. EXTREMITIES: Eczematous changes. 1+ bilateral lower extremity pitting edema.. Normal tone and ROM. Strength 5/5. NEURO: AAOx3. Cranial nerves II to XII intact. Sensation normal. Reflex symmetric. Gait normal. SKIN: Warm. Intact. No rashes, lesions or erythema. Lab Results 09/17 05:41 WBC: 6.2 Hgb: 13.2 Hct: 41.4 Platelet: 205 Neutrophil %: 68.1 Assessment/Plan Acute right-sided heart failure Pulmonary hypertension Elevated proBNP [2067] Moderate TR MARIA ESTHER Cellulitis of scrotum and abdomen URI Right pleural effusion, small Hx of atrial flutter [07/2022, on amiodarone, lopressor & Coumadin and for PE], BONNIE on 07/2022 showing multiple irregular masses in the RA cavity concerning for thrombus [transferred to [place] had a clot removal], Hx of PE with acute clot burden status post EKOS [on Coumadin] Hx of RCC, metastatic status post left nephrectomy Hx of AKHIL Hx of COPD Plan: Patient has scrotal swelling with cellulitis Which we increased from previous echo to 60 mm Pulmonary hypertension multifactorial in terms of AKHIL, COPD and increased clot burden last year Will put an order for right heart cath evaluation Please consider CTA chest or VQ scan for possible clot burden if any Patient was started on IV Lasix 20 twice daily, increased to Lasix IV 40 twice daily Increasing serum creatinine 1.49 today from 1.2 baseline Scrotal edema Patient has been on diuretic therapy Echo on 09/15/2023 showed EF of 55 to 60%. Unable to assess diastolic function. Aortic valve consistent with sclerosis RVSP increased to 60 mmHg Moderate TR Hypercoagulable state, INR 3.8 on 09/17/2023 Patient has history of large clot burden PE and right atrial masses with atrial flutter on 07/2022, patient underwent clot removal given Patient is on long-term Coumadin after that. Patient is on antibiotics Rest per primary team management. Assessment and plan discussed with Dr. Jeong, please follow for addendum. Problem List/Past Medical History Ongoing Alcohol abuse Left renal mass. 9.6-cm. With perinephric fat invasion. With lytic bony lesion and pulmonary nodules concerning for mets. BS, 07/2020 - neg. CT brain, 07/2020 - neg. S/P Radical nephrectomy 08/14/20. Metastatic renal cell carcinoma. S/P Left cytoreductive nephrectomy 08/14/20. Final path - ccRCC withsarcomatoid features. Morbid obesity due to excess calories No chronic diseases present T11 vertebral fracture Tobacco abuse Viral gastroenteritis Cigarette smoker Active Lung nodule, multiple Active Marijuana user Active Secondary malignant neoplasm of bone (disorder) Active Historical Renal cell carcinoma (disorder) Active Procedure/Surgical History Open heart surgery: 08/17/22 Tooth extraction: 08/28/21 Nephrectomy, including partial ureterectomy, any open approach including rib resection; radical, with regional lymphadenectomy and/or vena caval thrombectomy: 08/14/20 Tonsillectomy Boost radiation therapy Chemotherapy Medications Inpatient amiodarone, 200 mg= 1 tab(s), Oral, qDay cefdinir, 300 mg= 1 cap(s), Oral, BID Dextrose 50% IV Push, 12.5 gram(s)= 25 mL, IV Push, AsDirected, PRN doxycycline DuoNeb, 3 mL, Inhalation, q4hRT, PRN DuoNeb 0.5 mg - 2.5 mg/3 mL inhalation soln, 3 mL, Inhalation, QIDRT Flonase 50 mcg/inh nasal spray, 100 mcg= 2 spray(s), Nostril, each, BID lactulose, 20 gram(s)= 30 mL, Oral, qDay, PRN Lasix, 40 mg= 4 mL, IV Push, BID melatonin, 3 mg= 1 tab(s), Oral, qHS, PRN melatonin, 3 mg= 1 tab(s), Oral, qHS, PRN Metoprolol Tartrate 25 mg oral tablet, 25 mg= 1 tab(s), Oral, BID Miralax Powder Packet, 17 gram(s)= 15 mL, Oral, qDay, PRN Miralax Powder Packet, 17 gram(s)= 15 mL, Oral, Daily, PRN Nicoderm C-Q 21 mg/24 hr transdermal film, extended release, 21 mg= 1 patch(es), Transdermal, q24h nicotine (Nicoderm Patch REMOVAL), 1 EA, Miscellaneous, q24h [place] 325- 5 mg oral tablet, 1 tab(s), Oral, q4h, PRN [place] 325-10 mg oral tablet, 1 tab(s), Oral, q4h, PRN Pulmicort Respules 0.25 mg/2 mL inhalation suspension, 0.25 mg= 2 mL, Inhalation, BIDRT Saline Mist, 2 spray(s), Nostril, each, q2h, PRN senna, 8.6 mg= 1 tab(s), Oral, BID senna (sennosides) 8.6 mg oral tablet, 17.2 mg= 2 tab(s), Oral, BID, PRN Tessalon Perles, 200 mg= 2 cap(s), Oral, TID, PRN triamcinolone 0.1% topical cream, 1 julia, Topical, BID Tylenol, 650 mg= 2 tab(s), Oral, q4h, PRN Zofran, 4 mg= 2 mL, IV Push, q4h, PRN Home amiodarone 200 mg oral tablet, 200 mg= 1 tab(s), Oral, qDay cephalexin 500 mg oral capsule clindamycin 1% topical lotion, 1 julia, Topical, BID ketoconazole 2% topical shampoo Lopressor 25mg--USE metoprolol tartrate 25 mg oral tablet, BID oxyCODONE 5 mg oral tablet ( IMMEDIATE release ), 5 mg= 1 tab(s), Oral, q8h, PRN PURELAX 17 GRAM/DOSE POWDER (GRAM), 1cup powder, Oral, qDay, PRN senna (sennosides) 8.6 mg oral tablet, 17.2 mg= 2 tab(s), Oral, BID, PRN, 3 refills Stiolto Respimat 60 ACT 2.5 mcg-2.5 mcg/inh inhalation aerosol, 2 puff(s), Inhalation, q24h, 11 refills Trelegy Ellipta 100 mcg-62.5 mcg-25 mcg/inh inhalation powder, 1 puff(s), Inhalation, qDay, 11 refills triamcinolone 0.1% topical cream, 1 julia, Topical, BID warfarin 5 mg oral tablet warfarin 5 mg oral tablet, 2.5 mg= 0.5 tab(s), Oral, qDay, 11 refills Allergies penicillin Swelling Social History Smoking Status - 11/07/2016 Current every day smoker Alcohol - Medium Risk, 11/07/2016 Use: Past. Type: Beer. Frequency: Daily. Previous treatment: Outpatient. Has alcohol use interferedwith work or home life: No. Do you ever drink more than intended: Yes. Has anyone been hurt or at risk by your drinking: Yes. Ready to change: Yes., 04/14/2023 Employment/School Status: Employed., 12/16/2020 Home/Environment Domestic Concerns: None. Living situation: Home with assistance. 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 Safe place to go: Yes. Lives In: Single level home, 1st floor bedroom, 1st floor bathroom, 1st floor laundry., 08/14/2020 Nutrition/Health Caffeine intake amount: couple bottles a week., 10/20/2022 Type of diet: Regular. Appetite Excellent. Eating Difficulties None., 08/14/2020 Substance Abuse - Denies Substance Abuse, 11/07/2016 Use: Current. Type: Marijuana. Frequency: 1-2 times per month. IV drug use; No. Ready to change: No. Concerns about substance abuse in household: No., 08/14/2020 Tobacco Nicotine Use: 10 or more cigarettes (1/2 pack or more)/day in last 30 days, Quit July; started again the end of August or beginning of September. Type: Cigarettes. Started at age: 13 Years. Ready to change: Yes., 10/20/2022 Family History Bladder cancer: Negative: Mother, Father, Sister, Brother, Daughter, Son and Grandparent. Crohn's disease: Sister. Diabetes: Father. HTN - Hypertension: Mother and Father. Heart attack: Father. Heart disease: Negative: Mother, Father, Sister, Brother, Daughter, Son and Grandparent. Hypertension: Mother and Father.Negative: Sister, Brother, Daughter, Son and Grandparent. Kidney disease: Negative: Mother, Father, Sister, Brother, Daughter, Son and Grandparent. Kidney stone: Mother and Sister.Negative: Father, Brother, Daughter, Son and Grandparent. Prostate cancer: Negative: Father, Brother and Son. Renal cancer: Negative: Mother, Father, Sister, Brother, Daughter, Son and Grandparent. Rheumatoid arthritis: Mother. Health Status Family Member(s) Immunizations SARS-CoV-2 (COVID-19) mRNA-1273 vaccine: 0.25 unknown unit (04/15/21) SARS-CoV-2 (COVID-19) mRNA-1273 vaccine: 0.5 unknown unit (10/15/20) SARS-CoV-2 (COVID-19) mRNA-1273 vaccine: 0.5 unknown unit (09/17/20) Digitally Signed by KENAN NEWELL MD on 09/18/2023 12:06 PM [id number] Urology Consult note Date of Service 09/18/2023 Reason for Consultation Difficult Ochoa catheter, scrotal edema, penile edema, scrotal cellulitis, metastatic renal cell carcinoma Referring Physician Hospitalist team History of Present Illness This is a 43-year-old male with morbid obesity with a history of renal cell carcinoma status post left-sided nephrectomy 2020 for advanced renal cell carcinoma. See below discussion. Only admitted them overload and significant lower extremity edema and scrotal edema. There was question for panniculitis and scrotal cellulitis and patient was started on broad-spectrum antibiotics. He is about to begin receiving a Lasix drip. He needs to stand to void which is difficult because of his obesity and it was felt best to place Ochoa catheter before Lasix drip to monitor output in light of patient's severe volume overload Physical Exam Vitals and Measurements T: 36.6 C (Rectal) TMIN: 33.9 C (Axillary) TMAX: 36.6 C (Rectal) HR: 110 (Monitored) RR: 20 BP: 153/94 SpO2: 98% HT: 172.7 cm WT: 193.2 kg BMI: 64.78 Weight Dosing Weight: 193.2 kg (09/18/23) Exam the scrotum is significantly edematous. I do not appreciate any evidence of Sudeep's gangrene or necrotizing fasciitis or crepitus. The penile sensitively edematous and I cannot palpate or visualize the meatus or distal penile shaft or glans. Lab Results 09/17 10:50 Protime: 38.7 H PT International Ratio: 3.3 09/17 10:12 Glucose Level: 103 Sodium Level: 141 Potassium Level: 3.7 BUN: 25.0 H Creatinine Lvl (s): 1.29 09/17 05:41 WBC: 6.2 Hgb: 13.2 Hct: 41.4 Platelet: 205 Neutrophil %: 68.1 Assessment/Plan 1. 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 There was bony metastatic disease on imaging in the past including a T11 lytic lesion with compression deformity. Overall patient has been stable from an oncological standpoint. Renal functionnormal 2. History of atrial thrombus pulmonary embolism 08/05 status post thrombectomy at the [facility] patient usually on long-term anticoagulation with Coumadin. Current INR elevated at 3.8. 3. scrotal cellulitis which is improving IV antibiotics. Significantly improved on examination today. No findings to suggest necrotizing fasciitis 4. Volume overload requiring Lasix drip with need to place Ochoa catheter to monitor volume status Cystourethroscopy with placement of Ochoa catheter 09/18/2023: The redundant distal edematous penile skin is still prepped and draped I was unable to palpate or identify the glans or distal penile shaft because of significant penoscrotal edema and retraction. I attempted to place a guidewire without direct visualization and attempted to place a 14 coud catheter both without success. I then reprepped and draped and used a flexible cystoscope to identify the meatus. I advanced this through the edematous redundant distal penile shaft skin and was able to visualize the meatus which appeared normal.I passed a 0.38 floppy tip guidewire through the scope under direct vision into the urethral meatusand advanced this without difficulty into the bladder. I then backed out the scope and was unable to pass a 16 huslia tip catheter due to resistance so I cut the tip off of a 14 Lao coud and thiswas passed without difficulty over the wire into the bladder. About 200 cc of clear urine is obtained and 10 cc inflated into the balloon and bedside drainage bag placed. At this point, agree with broad-spectrum antibiotics and maintain Ochoa catheter during diuresis. Scrotal cellulitis appears to be improving. Will follow-up. Problem List/Past Medical History Ongoing Alcohol abuse Left renal mass. 9.6-cm. With perinephric fat invasion. With lytic bony lesion and pulmonary nodules concerning for mets. BS, 07/2020 - neg. CT brain, 07/2020 - neg. S/P Radical nephrectomy 08/14/20. Metastatic renal cell carcinoma. S/P Left cytoreductive nephrectomy 08/14/20. Final path - ccRCC withsarcomatoid features. Morbid obesity due to excess calories No chronic diseases present T11 vertebral fracture Tobacco abuse Viral gastroenteritis Cigarette smoker Active Lung nodule, multiple Active Marijuana user Active Secondary malignant neoplasm of bone (disorder) Active Historical Renal cell carcinoma (disorder) Active Procedure/Surgical History Open heart surgery: 08/17/22 Tooth extraction: 08/28/21 Nephrectomy, including partial ureterectomy, any open approach including rib resection; radical, with regional lymphadenectomy and/or vena caval thrombectomy: 08/14/20 Tonsillectomy Boost radiation therapy Chemotherapy Medications Inpatient amiodarone, 200 mg= 1 tab(s), Oral, qDay cefdinir, 300 mg= 1 cap(s), Oral, BID Dextrose 50% IV Push, 12.5 gram(s)= 25 mL, IV Push, AsDirected, PRN doxycycline DuoNeb, 3 mL, Inhalation, q4hRT, PRN DuoNeb 0.5 mg - 2.5 mg/3 mL inhalation soln, 3 mL, Inhalation, QIDRT Flonase 50 mcg/inh nasal spray, 100 mcg= 2 spray(s), Nostril, each, BID furosemide for IV 100 mg [10 mg/hr] + Sodium Chloride 0.9% intravenous solution 90 mL lactulose, 20 gram(s)= 30 mL, Oral, qDay, PRN magnesium oxide, 400 mg= 1 tab(s), Oral, BID melatonin, 3 mg= 1 tab(s), Oral, qHS, PRN melatonin, 3 mg= 1 tab(s), Oral, qHS, PRN Miralax Powder Packet, 17 gram(s)= 15 mL, Oral, qDay, PRN Miralax Powder Packet, 17 gram(s)= 15 mL, Oral, Daily, PRN Nicoderm C-Q 21 mg/24 hr transdermal film, extended release, 21 mg= 1 patch(es), Transdermal, q24h nicotine (Nicoderm Patch REMOVAL), 1 EA, Miscellaneous, q24h [place] 325- 5 mg oral tablet, 1 tab(s), Oral, q4h, PRN [place] 325-10 mg oral tablet, 1 tab(s), Oral, q4h, PRN Pulmicort Respules 0.25 mg/2 mL inhalation suspension, 0.25 mg= 2 mL, Inhalation, BIDRT Saline Mist, 2 spray(s), Nostril, each, q2h, PRN senna, 8.6 mg= 1 tab(s), Oral, BID senna (sennosides) 8.6 mg oral tablet, 17.2 mg= 2 tab(s), Oral, BID, PRN Tessalon Perles, 200 mg= 2 cap(s), Oral, TID, PRN Toprol-XL, 25 mg= 1 tab(s), Oral, BID triamcinolone 0.1% topical cream, 1 julia, Topical, BID Tylenol, 650 mg= 2 tab(s), Oral, q4h, PRN Zofran, 4 mg= 2 mL, IV Push, q4h, PRN Home amiodarone 200 mg oral tablet, 200 mg= 1 tab(s), Oral, qDay cephalexin 500 mg oral capsule clindamycin 1% topical lotion, 1 julia, Topical, BID ketoconazole 2% topical shampoo Lopressor 25mg--USE metoprolol tartrate 25 mg oral tablet, BID oxyCODONE 5 mg oral tablet ( IMMEDIATE release ), 5 mg= 1 tab(s), Oral, q8h, PRN PURELAX 17 GRAM/DOSE POWDER (GRAM), 1cup powder, Oral, qDay, PRN senna (sennosides) 8.6 mg oral tablet, 17.2 mg= 2 tab(s), Oral, BID, PRN, 3 refills Stiolto Respimat 60 ACT 2.5 mcg-2.5 mcg/inh inhalation aerosol, 2 puff(s), Inhalation, q24h, 11 refills Trelegy Ellipta 100 mcg-62.5 mcg-25 mcg/inh inhalation powder, 1 puff(s), Inhalation, qDay, 11 refills triamcinolone 0.1% topical cream, 1 julia, Topical, BID warfarin 5 mg oral tablet warfarin 5 mg oral tablet, 2.5 mg= 0.5 tab(s), Oral, qDay, 11 refills Allergies penicillin Swelling Social History Smoking Status - 11/07/2016 Current every day smoker Alcohol - Medium Risk, 11/07/2016 Use: Past. Type: Beer. Frequency: Daily. Previous treatment: Outpatient. Has alcohol use interferedwith work or home life: No. Do you ever drink more than intended: Yes. Has anyone been hurt or at risk by your drinking: Yes. Ready to change: Yes., 04/14/2023 Employment/School Status: Employed., 12/16/2020 Home/Environment Domestic Concerns: None. Living situation: Home with assistance. 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 Safe place to go: Yes. Lives In: Single level home, 1st floor bedroom, 1st floor bathroom, 1st floor laundry., 08/14/2020 Nutrition/Health Caffeine intake amount: couple bottles a week., 10/20/2022 Type of diet: Regular. Appetite Excellent. Eating Difficulties None., 08/14/2020 Substance Abuse - Denies Substance Abuse, 11/07/2016 Use: Current. Type: Marijuana. Frequency: 1-2 times per month. IV drug use; No. Ready to change: No. Concerns about substance abuse in household: No., 08/14/2020 Tobacco Nicotine Use: 10 or more cigarettes (1/2 pack or more)/day in last 30 days, Quit July; started again the end of August or beginning of September. Type: Cigarettes. Started at age: 13 Years. Ready to change: Yes., 10/20/2022 Family History Bladder cancer: Negative: Mother, Father, Sister, Brother, Daughter, Son and Grandparent. Crohn's disease: Sister. Diabetes: Father. HTN - Hypertension: Mother and Father. Heart attack: Father. Heart disease: Negative: Mother, Father, Sister, Brother, Daughter, Son and Grandparent. Hypertension: Mother and Father.Negative: Sister, Brother, Daughter, Son and Grandparent. Kidney disease: Negative: Mother, Father, Sister, Brother, Daughter, Son and Grandparent. Kidney stone: Mother and Sister.Negative: Father, Brother, Daughter, Son and Grandparent. Prostate cancer: Negative: Father, Brother and Son. Renal cancer: Negative: Mother, Father, Sister, Brother, Daughter, Son and Grandparent. Rheumatoid arthritis: Mother. Health Status Family Member(s) Immunizations SARS-CoV-2 (COVID-19) mRNA-1273 vaccine: 0.25 unknown unit (04/15/21) SARS-CoV-2 (COVID-19) mRNA-1273 vaccine: 0.5 unknown unit (10/15/20) SARS-CoV-2 (COVID-19) mRNA-1273 vaccine: 0.5 unknown unit (09/17/20) Digitally Signed by LIAN BERNARD MD on 09/18/2023 05:42 PM [id number] ORIGINAL EXAMINATION: NUCLEAR MEDICINE PERFUSION SCAN. 09/18/2023 TECHNIQUE: Ventilation not performed as part of droplet safety precautions. 7.5 millicuries of Tc 99m MAA was administered intravenously prior to SPECT CT imaging of the lungs. COMPARISON: Chest radiograph September 18, 2023. HISTORY: Reason for Exam: R/o PE, worsening SOB x 1 week FINDINGS: SPECT CT perfusion imaging demonstrates mildly heterogeneous perfusion. Heterogeneity of the perfusion is most apparent in the left lower lobe and lung bases. Small and moderate-sized areas of decreased perfusion are suggested in the left lower lobe. IMPRESSION: Perfusion only: Intermediate probability of pulmonary embolism. Interpreted by: Fabian Newell MD Preliminary Report By: Fabian Newell MD Electronically signed By Fabian Newell MD Dictated Date: 09/18/2023 4:26:21 PM Prelim Date: 09/18/2023 4:44:23 PM Sign Date: 09/18/2023 4:44:23 PM Ordering Provider: [facility]08-05-2024 Note ORIGINAL EXAMINATION: TWO XRAY VIEWS OF THE CHEST09/18/2023 2:11 pm COMPARISON: 09/15/2023 HISTORY: ORDERING SYSTEM PROVIDED HISTORY: Reason for Exam: R/o pleural effusion, previous open heart surgery, shortness of breath FINDINGS: Stable heart and mediastinum with postop changes. There is a right jugular central venous port as previously. No vascular congestion or lung consolidation. There is some right basilar opacity and mild blunting of the costophrenic angle. Lateral views are overall suboptimal due to body habitus limitations. No large pleural effusion on the lateral view. Mild right basilar atelectasis. IMPRESSION: There is right basilar atelectasis and probably small right pleural effusion similar to or slightly improved from the earlier chest radiograph. Interpreted by: Paige Ray MD Preliminary Report By: Paige Ray MD Electronically signed By Paige Ray MD Dictated Date: 09/18/2023 3:02:40 PM Prelim Date: 09/18/2023 3:04:08 PM Sign Date: 09/18/2023 3:04:08 PM Ordering Provider: [facility]08-05-2024 Evaluation + Plan note Extracted from: Title:History and Physical Author:OSMAR DUQUE Date:09/18/23 43-year-old male with a hist ory of renal cell carcinoma status post left-sided nephrectomy, HFpEF, obesity, COPD, PE on AC, smoking alcohol abuse is presenting with acute diastolic heart failure causing cellulitis of his scrotum and abdomen which responded to antibiotics but still needs additional fluid removed given that he is Lasix na ve Lasix to 20 IV twice daily is a reasonable choice initially however since he has no longer responding will escalate to 40 twice daily if his renal function does not remain stable recommend switching to Bumex. Will ask heart failure to weigh in regarding goals of diuresis and goal-directed medical therapy. Acute diastolic heart failure will diurese with Lasix 40 IV twice daily keep K above 4 mag above 2 monitor renal function, if it worsens switch to Bumex appreciate cardiology input Renal cell carcinoma status post left-sided nephrectomy 2020 monitor renal function Cellulitis of his scrotum and abdomen responded to IV antibiotics transition to p.o. doxycycline 100 twice daily and cefdinir 300 twice daily will continue URI will place on droplet precautions no need to test that he is not hypoxic and I suspect this presentation is more overload, if he becomes hypoxic and rule out COVID. Tessalon as needed, Flonase 2 sprays in each nostril twice daily History of PE with Coumadin INR 3.8 follow repeat today if it trends down restart home Coumadin Obesity increases risk of morbidity mortality Smoker uncontrolled nicotine patch Alcohol abuse does not appear to be in alcohol withdrawal stable Chronic low back pain pain control Constipation uncontrolled stool softener DVT prophylaxis INR 3.8 Full code, patient admitted for the above Future Appointments Appointment Date:09/27/2023 01:20:00 PM Scheduled Provider:PROSPER MANJARREZ DO Location:[facility] Appointment Type:[facility] Follow-Up Appointment Date:10/06/2023 11:15:00 AM Scheduled Provider: Location:[facility] Appointment Type:[facility] Appointment Date:10/12/2023 10:30:00 AM Scheduled Provider: Location:[facility] Appointment Type:yyCT Abdomen and Pelvis w/ Contrast 3 Appointment Date:10/12/2023 11:00:00 AM Scheduled Provider: Location:[facility] Appointment Type:yyCT Chest w/ Contrast 3 Appointment Date:10/19/2023 12:15:00 PM Scheduled Provider: Location:[facility] Appointment Type:[facility] Labwork Appointment Date:10/19/2023 01:00:00 PM Scheduled Provider:LIAN FUNG MD Location:[facility] Appointment Type:PALL OV Follow Up Appointment Date:10/19/2023 01:30:00 PM Scheduled Provider:BHAVIK TRIANA MD Location:[facility] Appointment Type:[facility] OV Follow Up w/Active Treatment Appointment Date:10/19/2023 02:00:00 PM Scheduled Provider: Location:[facility] Appointment Type:INF Chemo: Infusion 60 min (1 hour) Appointment Date:11/30/2023 03:30:00 PM Scheduled Provider:PROSPER MANJARREZ DO Location:[facility] Appointment Type:PC Wellness Annual Future Scheduled Tests Laboratory* Cortisol Level 09/21/23 * Cortisol Level 10/19/23 * Lactate Dehydrogenase 09/21/23 * Lactate Dehydrogenase 10/19/23 * Thyroid Stimulating Hormone 09/21/23 * Thyroid Stimulating Hormone 10/19/23 * Free T4 09/21/23 * Free T4 10/19/23 * Complete Blood Count 09/21/23 * Complete Blood Count 10/19/23 * Free T3 09/21/23 * Free T3 10/19/23 * Lipid Profile 11/27/23 * Complete Metabolic Panel 09/21/23 * Complete Metabolic Panel 10/19/23 * Complete Metabolic Panel 11/27/23 Radiology* CT Abdomen/Pelvis w/Oral Contrast Only 03/09/23 * CT Thorax w/ Contrast 10/12/23 * CT Thorax w/o Contrast 03/09/23 * CT Abdomen and Pelvis w/ contrast 10/12/23 [facility] 08-05-2024 Cardiology Consult note Date of Service 09/18/2023 Reason for Consultation Diuresis, heart failure Referring Physician Dr. Duque History of Present Illness 43-year-old male morbidly obese male with PMH of atrial flutter [07/2022, on amiodarone, lopressor and Coumadin], BONNIE on 07/2022 showing multiple irregular masses in the RA cavity concerning for thrombus [transferred to [place] had a clot removal, PE with acute clot burden status post EKOS, CAD [mild nonobstructive CAD, C on 08/15/2022], alcohol abuse [10 beers daily, down to 10 beer 3-4 times a week], tobacco abuse, metastatic RCC [s/p left nephrectomy 08/2020, radiation chemo [, T11 vertebral body fracture electrolyte occlusion, AKHIL [not using CPAP], COPD presented to the hospital and transferred from [facility] because of increased lower extremity swelling and difficulty lying flat. It was also noticed that his scrotum is increasing swelling in his abdominal girth increasing having difficulty lying flat because of shortness of breath and back pain. Patient also had runny nose and a cough went to the emergency department. CT abdomen pelvis found to have cellulitis of her pannusand ultrasound scrotum found to have cellulitis with swelling. Patient was started on antibiotics for cellulitis. Patient was started on IV Lasix 20 mg twice daily for acute fluid overload. Found to have INR supratherapeutic at 3.8 on transfer to [facility]. On examining the patient today patient was lying flat on the bed with supplemental 2 L oxygenation.He denied any taking any diuresis at home. After the surgery last year for the clot removal, patient has been feeling shortness of breath on walking, he is able to lie flat. However, he still continues to smoke and have alcohol abuse which is declining. Recently patient had a UTI as well and now came with the cellulitis picture. Cardiology consulted for the diuresis effect and the GDMT. Echo on 09/15/2023: technically limited due to body habitus. 8 ml of intravenous contrast (Definity) was administered to opacify the LV. 2. Left ventricle: The cavity size is normal. Wall thickness is mildly increased. Systolic functionis normal. The estimated ejection fraction is 55-60%. Regional wall motion abnormalities cannot be excluded. Unable to assess diastolic function. 3. Aortic valve: Thickening, consistent with sclerosis. 4. Right ventricle: The cavity size is moderately to severely increased. Systolic function is reduced. Systolic pressure is increased. The RV systolic pressure by Doppler is 60 mm Hg. 5. Tricuspid valve: There is moderate regurgitation. 6. Right atrium: The atrium is dilated. The estimated right atrial pressure is 15 mm Hg. 7. Inferior vena cava: The IVC is dilated. Review of Systems General: Denies fever, chills, night sweats, Weight changes Skin: Denies rash itching bruising Head: Denies headache or trauma Eyes: Denies blurred double vision vision loss or any vision changes ENT: Denies hearing loss or ringing in ears, ear pain, ear drainage, nasal drainage sinus congestion, sneezing, bloody noses or sore throat Respiratory: Denies cough, shortness of breath, hemoptysis or sputum productive Cardiovascular: Denies chest pain, orthopnea, palpitations, dyspnea on exertion, edema or intermittent claudication GI: Denies abdominal pain,constipation, appetite changes, bloody or dark tarry stools or blood in emesis : Positive scrotal swelling and pain discomfort Musculoskeletal: Denies muscle weakness joint pain redness or swelling Neurological: Denies loss of consciousness, numbness, tingling, weakness in extremities changes in speech, fainting or seizures Psych: Denies depression, racing thoughts, anxiety Endocrine: Denies polyuria, polydipsia, polyphagia, heat or cold intolerances, Heme: Denies easy bruising, history of anemia, petechiae or purpura Physical Exam Vitals and Measurements T: 36.4 C (Oral) HR: 88 (Apical) RR: 22 BP: 135/104 SpO2: 93% HT: 172.7 cm WT: 193.2 kg BMI: 64.78 Weight Dosing Weight: 193.2 kg (09/18/23) GEN: Morbidly obese. Alert and interactive. HEENT: NC/AT. PERRLA, EOMI. Normal external auditory canal and tympanic membrane. NECK: Supple. Normal ROM. Trachea midline. No LAD, no thyromegaly. RESPIRATORY: Normal respiratory effort. CTABL. CVS: RRR. Normal S1/S2. No M/R/G. No JVD. ABDOMEN: Soft, non-tender, non-distended. +BS. EXTREMITIES: Eczematous changes. 1+ bilateral lower extremity pitting edema.. Normal tone and ROM. Strength 5/5. NEURO: AAOx3. Cranial nerves II to XII intact. Sensation normal. Reflex symmetric. Gait normal. SKIN: Warm. Intact. No rashes, lesions or erythema. Lab Results 09/17 05:41 WBC: 6.2 Hgb: 13.2 Hct: 41.4 Platelet: 205 Neutrophil %: 68.1 Assessment/Plan Acute right-sided heart failure Pulmonary hypertension Elevated proBNP [2067] Moderate TR MARIA ESTHER Cellulitis of scrotum and abdomen URI Right pleural effusion, small Hx of atrial flutter [07/2022, on amiodarone, lopressor & Coumadin and for PE], BONNIE on 07/2022 showing multiple irregular masses in the RA cavity concerning for thrombus [transferred to [place] had a clot removal], Hx of PE with acute clot burden status post EKOS [on Coumadin] Hx of RCC, metastatic status post left nephrectomy Hx of AKHIL Hx of COPD Plan: Patient has scrotal swelling with cellulitis Which we increased from previous echo to 60 mm Pulmonary hypertension multifactorial in terms of AKHIL, COPD and increased clot burden last year Will put an order for right heart cath evaluation Please consider CTA chest or VQ scan for possible clot burden if any Patient was started on IV Lasix 20 twice daily, increased to Lasix IV 40 twice daily Increasing serum creatinine 1.49 today from 1.2 baseline Scrotal edema Patient has been on diuretic therapy Echo on 09/15/2023 showed EF of 55 to 60%. Unable to assess diastolic function. Aortic valve consistent with sclerosis RVSP increased to 60 mmHg Moderate TR Hypercoagulable state, INR 3.8 on 09/17/2023 Patient has history of large clot burden PE and right atrial masses with atrial flutter on 07/2022, patient underwent clot removal given Patient is on long-term Coumadin after that. Patient is on antibiotics Rest per primary team management. Assessment and plan discussed with Dr. Jeong, please follow for addendum. Problem List/Past Medical History Ongoing Alcohol abuse Left renal mass. 9.6-cm. With perinephric fat invasion. With lytic bony lesion and pulmonary nodules concerning for mets. BS, 07/2020 - neg. CT brain, 07/2020 - neg. S/P Radical nephrectomy 08/14/20. Metastatic renal cell carcinoma. S/P Left cytoreductive nephrectomy 08/14/20. Final path - ccRCC withsarcomatoid features. Morbid obesity due to excess calories No chronic diseases present T11 vertebral fracture Tobacco abuse Viral gastroenteritis Cigarette smoker Active Lung nodule, multiple Active Marijuana user Active Secondary malignant neoplasm of bone (disorder) Active Historical Renal cell carcinoma (disorder) Active Procedure/Surgical History Open heart surgery: 08/17/22 Tooth extraction: 08/28/21 Nephrectomy, including partial ureterectomy, any open approach including rib resection; radical, with regional lymphadenectomy and/or vena caval thrombectomy: 08/14/20 Tonsillectomy Boost radiation therapy Chemotherapy Medications Inpatient amiodarone, 200 mg= 1 tab(s), Oral, qDay cefdinir, 300 mg= 1 cap(s), Oral, BID Dextrose 50% IV Push, 12.5 gram(s)= 25 mL, IV Push, AsDirected, PRN doxycycline DuoNeb, 3 mL, Inhalation, q4hRT, PRN DuoNeb 0.5 mg - 2.5 mg/3 mL inhalation soln, 3 mL, Inhalation, QIDRT Flonase 50 mcg/inh nasal spray, 100 mcg= 2 spray(s), Nostril, each, BID lactulose, 20 gram(s)= 30 mL, Oral, qDay, PRN Lasix, 40 mg= 4 mL, IV Push, BID melatonin, 3 mg= 1 tab(s), Oral, qHS, PRN melatonin, 3 mg= 1 tab(s), Oral, qHS, PRN Metoprolol Tartrate 25 mg oral tablet, 25 mg= 1 tab(s), Oral, BID Miralax Powder Packet, 17 gram(s)= 15 mL, Oral, qDay, PRN Miralax Powder Packet, 17 gram(s)= 15 mL, Oral, Daily, PRN Nicoderm C-Q 21 mg/24 hr transdermal film, extended release, 21 mg= 1 patch(es), Transdermal, q24h nicotine (Nicoderm Patch REMOVAL), 1 EA, Miscellaneous, q24h [place] 325- 5 mg oral tablet, 1 tab(s), Oral, q4h, PRN [place] 325-10 mg oral tablet, 1 tab(s), Oral, q4h, PRN Pulmicort Respules 0.25 mg/2 mL inhalation suspension, 0.25 mg= 2 mL, Inhalation, BIDRT Saline Mist, 2 spray(s), Nostril, each, q2h, PRN senna, 8.6 mg= 1 tab(s), Oral, BID senna (sennosides) 8.6 mg oral tablet, 17.2 mg= 2 tab(s), Oral, BID, PRN Tessalon Perles, 200 mg= 2 cap(s), Oral, TID, PRN triamcinolone 0.1% topical cream, 1 julia, Topical, BID Tylenol, 650 mg= 2 tab(s), Oral, q4h, PRN Zofran, 4 mg= 2 mL, IV Push, q4h, PRN Home amiodarone 200 mg oral tablet, 200 mg= 1 tab(s), Oral, qDay cephalexin 500 mg oral capsule clindamycin 1% topical lotion, 1 julia, Topical, BID ketoconazole 2% topical shampoo Lopressor 25mg--USE metoprolol tartrate 25 mg oral tablet, BID oxyCODONE 5 mg oral tablet ( IMMEDIATE release ), 5 mg= 1 tab(s), Oral, q8h, PRN PURELAX 17 GRAM/DOSE POWDER (GRAM), 1cup powder, Oral, qDay, PRN senna (sennosides) 8.6 mg oral tablet, 17.2 mg= 2 tab(s), Oral, BID, PRN, 3 refills Stiolto Respimat 60 ACT 2.5 mcg-2.5 mcg/inh inhalation aerosol, 2 puff(s), Inhalation, q24h, 11 refills Trelegy Ellipta 100 mcg-62.5 mcg-25 mcg/inh inhalation powder, 1 puff(s), Inhalation, qDay, 11 refills triamcinolone 0.1% topical cream, 1 julia, Topical, BID warfarin 5 mg oral tablet warfarin 5 mg oral tablet, 2.5 mg= 0.5 tab(s), Oral, qDay, 11 refills Allergies penicillin Swelling Social History Smoking Status - 11/07/2016 Current every day smoker Alcohol - Medium Risk, 11/07/2016 Use: Past. Type: Beer. Frequency: Daily. Previous treatment: Outpatient. Has alcohol use interferedwith work or home life: No. Do you ever drink more than intended: Yes. Has anyone been hurt or at risk by your drinking: Yes. Ready to change: Yes., 04/14/2023 Employment/School Status: Employed., 12/16/2020 Home/Environment Domestic Concerns: None. Living situation: Home with assistance. 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 Safe place to go: Yes. Lives In: Single level home, 1st floor bedroom, 1st floor bathroom, 1st floor laundry., 08/14/2020 Nutrition/Health Caffeine intake amount: couple bottles a week., 10/20/2022 Type of diet: Regular. Appetite Excellent. Eating Difficulties None., 08/14/2020 Substance Abuse - Denies Substance Abuse, 11/07/2016 Use: Current. Type: Marijuana. Frequency: 1-2 times per month. IV drug use; No. Ready to change: No. Concerns about substance abuse in household: No., 08/14/2020 Tobacco Nicotine Use: 10 or more cigarettes (1/2 pack or more)/day in last 30 days, Quit July; started again the end of August or beginning of September. Type: Cigarettes. Started at age: 13 Years. Ready to change: Yes., 10/20/2022 Family History Bladder cancer: Negative: Mother, Father, Sister, Brother, Daughter, Son and Grandparent. Crohn's disease: Sister. Diabetes: Father. HTN - Hypertension: Mother and Father. Heart attack: Father. Heart disease: Negative: Mother, Father, Sister, Brother, Daughter, Son and Grandparent. Hypertension: Mother and Father.Negative: Sister, Brother, Daughter, Son and Grandparent. Kidney disease: Negative: Mother, Father, Sister, Brother, Daughter, Son and Grandparent. Kidney stone: Mother and Sister.Negative: Father, Brother, Daughter, Son and Grandparent. Prostate cancer: Negative: Father, Brother and Son. Renal cancer: Negative: Mother, Father, Sister, Brother, Daughter, Son and Grandparent. Rheumatoid arthritis: Mother. Health Status Family Member(s) Immunizations SARS-CoV-2 (COVID-19) mRNA-1273 vaccine: 0.25 unknown unit (04/15/21) SARS-CoV-2 (COVID-19) mRNA-1273 vaccine: 0.5 unknown unit (10/15/20) SARS-CoV-2 (COVID-19) mRNA-1273 vaccine: 0.5 unknown unit (09/17/20) Digitally Signed by KENAN NEWELL MD on 09/18/2023 12:06 PM [id number] NoteSinus rhythm Prolonged [place] interval RBBB and LPFB Electronic Signature: YORDY BADILLO MD 09/19/2023 22:09:[address] [place] [address] 08-05-2024 History and physical note Date of Service 09/18/2023 Chief Complaint Acute HFpEF, scrotal cellulitis abdominal cellulitis, URI History of Present Illness 43-year-old male with a history of renal cell carcinoma status post left-sided nephrectomy in 2020,HFpEF, obesity, COPD, PE on Coumadin, smoker and alcohol abuse who presents with increased lower extremity swelling and difficulty laying flat. Patient says that he has noticed his scrotum increase in swelling in his abdomen increasing girth and had trouble laying flat because of shortness of breath and back pain he also has a little bit of a runny nose and cough so he went to the emergency department [place] In the emergency room at [place] Scrotal ultrasound showed Very extensive diffuse scrotal soft tissue edema/cellulitis. CT abdomen pelvis with contrast showed 1. Findings of cellulitis involving the pannus without soft tissue air or organized fluid collection. Please note, the scrotum or perineal soft tissues are not captured on this exam. 2. Favored hyperplastic/reactive inguinal and right external iliac chain lymphadenopathy. Attention on follow-up recommended. 2. Small volume ascites and diffuse anasarca. Patient was started on vancomycin and Unasyn for concern of cellulitis Started on Lasix 20 IV twice daily for acute fluid overload Patient developed a MARIA ESTHER with a creatinine 1.59 baseline 1.2 He was initially diuresing well but felt like the Lasix had lost its effect INR was supratherapeutic at 3.8 and thus was held Patient was transferred to [facility] [place] for assistance with cardiology for goals of diuresis as his weight as outpatient primary care visit was 300 pounds and is up to 340 Upon arrival for patient says that he is still having trouble laying flat due to shortness of breath and still feels like his scrotum and legs are swollen he says that they are not quite as tender after getting the antibiotics he does take oxycodone at home for which she is okay de-escalating to Tylenol or Vicodin due to constipation Review of Systems All pertinent positive and negative review of systems as per HPI, all other review of systems reviewed and negative Physical Exam Vitals and Measurements No qualifying data available. GENERAL:Well nourished ; no acute distress. ASSISTIVE DEVICES: None PSYCHIATRIC: appropriate HEENT moist mucous membranes extraocular muscles intact rhinorrhea CARDIOVASCULAR: Regular rate, regular rhythm, no murmurs noted. Notrace lower extremity pitting edema. No lymphedema. Dorsalis Pedis pulses+2/4 blaterally . Posterior Tibialis pulses+2/4 bilaterally . RESPIRATORY: Moderate air entry ABDOMEN soft, no guarding, nontender, nondistended, positive bowel sounds, NEURO: No gross deficits MSK edema of the lower extremities significant edema of the scrotum and lower abdomen with erythemaof the scrotum and lower abdomen Lab Results No 36 Hour Lab Data Assessment/Plan 43-year-old male with a history of renal cell carcinoma status post left-sided nephrectomy, HFpEF, obesity, COPD, PE on AC, smoking alcohol abuse is presenting with acute diastolic heart failure causing cellulitis of his scrotum and abdomen which responded to antibiotics but still needs additional fluid removed given that he is Lasix na ve Lasix to 20 IV twice daily is a reasonable choice initially however since he has no longer responding will escalate to 40 twice daily if his renal function does not remain stable recommend switching to Bumex. Will ask heart failure to weigh in regarding goals of diuresis and goal-directed medical therapy. Acute diastolic heart failure will diurese with Lasix 40 IV twice daily keep K above 4 mag above 2 monitor renal function, if it worsens switch to Bumex appreciate cardiology input Renal cell carcinoma status post left-sided nephrectomy 2020 monitor renal function Cellulitis of his scrotum and abdomen responded to IV antibiotics transition to p.o. doxycycline 100 twice daily and cefdinir 300 twice daily will continue URI will place on droplet precautions no need to test that he is not hypoxic and I suspect this presentation is more overload, if he becomes hypoxic and rule out COVID. Tessalon as needed, Flonase 2 sprays in each nostril twice daily History of PE with Coumadin INR 3.8 follow repeat today if it trends down restart home Coumadin Obesity increases risk of morbidity mortality Smoker uncontrolled nicotine patch Alcohol abuse does not appear to be in alcohol withdrawal stable Chronic low back pain pain control Constipation uncontrolled stool softener DVT prophylaxis INR 3.8 Full code, patient admitted for the above Problem List/Past Medical History Ongoing Alcohol abuse Left renal mass. 9.6-cm. With perinephric fat invasion. With lytic bony lesion and pulmonary nodules concerning for mets. BS, 07/2020 - neg. CT brain, 07/2020 - neg. S/P Radical nephrectomy 08/14/20. Metastatic renal cell carcinoma. S/P Left cytoreductive nephrectomy 08/14/20. Final path - ccRCC withsarcomatoid features. Morbid obesity due to excess calories No chronic diseases present T11 vertebral fracture Tobacco abuse Viral gastroenteritis Cigarette smoker Active Lung nodule, multiple Active Marijuana user Active Secondary malignant neoplasm of bone (disorder) Active Historical Renal cell carcinoma (disorder) Active Procedure/Surgical History Open heart surgery: 08/17/22 Tooth extraction: 08/28/21 Nephrectomy, including partial ureterectomy, any open approach including rib resection; radical, with regional lymphadenectomy and/or vena caval thrombectomy: 08/14/20 Tonsillectomy Boost radiation therapy Chemotherapy Medications Home Medications (13) Active amiodarone 200 mg oral tablet 200 mg = 1 tab(s), Oral, qDay cephalexin 500 mg oral capsule clindamycin 1% topical lotion 1 julia, Topical, BID ketoconazole 2% topical shampoo Lopressor 25mg--USE metoprolol tartrate 25 mg oral tablet , BID oxyCODONE 5 mg oral tablet ( IMMEDIATE release ) 5 mg = 1 tab(s), PRN, Oral, q8h PURELAX 17 GRAM/DOSE POWDER (GRAM) 1cup powder, PRN, Oral, qDay senna (sennosides) 8.6 mg oral tablet 17.2 mg = 2 tab(s), PRN, Oral, BID Stiolto Respimat 60 ACT 2.5 mcg-2.5 mcg/inh inhalation aerosol 2 puff(s), Inhalation, q24h Trelegy Ellipta 100 mcg-62.5 mcg-25 mcg/inh inhalation powder 1 puff(s), Inhalation, qDay triamcinolone 0.1% topical cream 1 julia, Topical, BID warfarin 5 mg oral tablet 2.5 mg = 0.5 tab(s), Oral, qDay warfarin 5 mg oral tablet Allergies penicillin Swelling Social History Smoking Status - 11/07/2016 Current every day smoker Alcohol - Medium Risk, 11/07/2016 Use: Past. Type: Beer. Frequency: Daily. Previous treatment: Outpatient. Has alcohol use interferedwith work or home life: No. Do you ever drink more than intended: Yes. Has anyone been hurt or at risk by your drinking: Yes. Ready to change: Yes., 04/14/2023 Employment/School Status: Employed., 12/16/2020 Home/Environment Domestic Concerns: None. Living situation: Home with assistance. 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 Safe place to go: Yes. Lives In: Single level home, 1st floor bedroom, 1st floor bathroom, 1st floor laundry., 08/14/2020 Nutrition/Health Caffeine intake amount: couple bottles a week., 10/20/2022 Type of diet: Regular. Appetite Excellent. Eating Difficulties None., 08/14/2020 Substance Abuse - Denies Substance Abuse, 11/07/2016 Use: Current. Type: Marijuana. Frequency: 1-2 times per month. IV drug use; No. Ready to change: No. Concerns about substance abuse in household: No., 08/14/2020 Tobacco Nicotine Use: 10 or more cigarettes (1/2 pack or more)/day in last 30 days, Quit July; started again the end of August or beginning of September. Type: Cigarettes. Started at age: 13 Years. Ready to change: Yes., 10/20/2022 Family History Bladder cancer: Negative: Mother, Father, Sister, Brother, Daughter, Son and Grandparent. Crohn's disease: Sister. Diabetes: Father. HTN - Hypertension: Mother and Father. Heart attack: Father. Heart disease: Negative: Mother, Father, Sister, Brother, Daughter, Son and Grandparent. Hypertension: Mother and Father.Negative: Sister, Brother, Daughter, Son and Grandparent. Kidney disease: Negative: Mother, Father, Sister, Brother, Daughter, Son and Grandparent. Kidney stone: Mother and Sister.Negative: Father, Brother, Daughter, Son and Grandparent. Prostate cancer: Negative: Father, Brother and Son. Renal cancer: Negative: Mother, Father, Sister, Brother, Daughter, Son and Grandparent. Rheumatoid arthritis: Mother. Health Status Family Member(s) Immunizations SARS-CoV-2 (COVID-19) mRNA-1273 vaccine: 0.25 unknown unit (04/15/21) SARS-CoV-2 (COVID-19) mRNA-1273 vaccine: 0.5 unknown unit (10/15/20) SARS-CoV-2 (COVID-19) mRNA-1273 vaccine: 0.5 unknown unit (09/17/20) Code Status Code Status - Ordered -- 09/18/23 1:46:00 EDT, Full Code, Constant Order Digitally Signed by OSMAR DUQUE MD on 09/18/2023 03:30 [id number] Progress note Pt has refused past 12 breathing aerosols. Had a lengthy conversation about the stagnant progress of his respiratory needs during this hospital stay. Pt remains adamant that the aerosols are what caused him to feel less responsive days ago. Now that pt is stable of current medicine regime, [employer] offered to re-try aerosols. Pt refused Let pt know that he is able to bring in home maintenance inhalers if it made him more comfortable Digitally Signed by Ruthy Oconnor RT on 09/17/2023 11:24 AM [facility]08-04-2024 [facility] Progress note Pt has refused past 12 breathing aerosols. Had a lengthy conversation about the stagnant progress of his respiratory needs during this hospital stay. Pt remains adamant that the aerosols are what caused him to feel less responsive days ago. Now that pt is stable of current medicine regime, [employer] offered to re-try aerosols. Pt refused Let pt know that he is able to bring in home maintenance inhalers if it made him more comfortable Digitally Signed by Ruthy Oconnor RT on 09/17/2023 11:24 AM [facility]08-04-2024 Note Date of Service 09/17/2023 Chief Complaint scrotal edema Subjective Patient seen and evaluated this morning while resting in bed. He has moist- sounding respirations again today and is complaining of a headache in the back of his head. His face continues to turn purple when he repositions or coughs. Patient advised that his echo shows same EF 55-60%, unknown diastolic dysfunction which is similar to 07/2022 echo. He now has wall motion abnormalities and his RVSP has increased to 60 from 33 last year. Recommend that patient transfer to [facility] so that he can be seen by the cardiology to help with medication adjustments and make further recommendations. Patient onlyhas one kidney due to renal cell carcinoma and has a baseline GFR 58-60 in the remaining kidney (down to 48 this am). He continues to complain of discomfort from his scrotal edema but, honestly, cannot see "down there" so does not know when that really started. He initially thought he had inner thigh edema when he presented. He may have had scrotal edema for a while but had more discomfort due to cellulitis. The scrotum itself is more of a pink color today but was only mildly erythematous when he came in. Will continue lasix 20 mg IV BID today instead of switching to oral as planned as that seems to be more effective in pulling off fluids. Weights for patient have been all over the place. On admission, he was recorded as being 431.9 lbs and is down to 425 lbs this morning. Patient feels that he usually is around 400 lbs and was just in to see his PCP in 07/2023 and was 400 lbs at that time. He has had about a 30 lb weight gain in about 6 weeks time. Patient was switched to oral antibiotics for the cellulitis yesterday. Will continue to diurese today and transfer for consult to cardiology for further recommendations. Patient denies any fever, chills, chest pain, abdominal pain, nausea or dysuria. All questions answered. Objective Vitals and Measurements T: 36.4 C (Oral) TMIN: 36.4 C (Oral) TMAX: 36.7 C (Oral) HR: 70 (Apical) RR: 20 BP: 152/80 SpO2: 95% WT: 193.2 kg WT: 193.2 kg Intake and Output 7AM Yesterday to 7AM Today Intake and Output (Last 24 hours) Intake Oral Intake 1060.00 Output Stool Count 3.00 Urine Count 3.00 Total Summary Total Intake 1060.00 Total Output 0.00 Fluid Balance 1060.00 Physical Exam General: No acute distress. Patient is alert, chronically ill-appearing. Skin: Healing rash noted across the chest as well as midsternal surgical scar. Skin is warm, dry and intact. HEENT: Head is normocephalic, atraumatic. Pupils are equal, round and reactive. Neck: Supple. No lymphadenopathy, thyromegaly. Lungs: Bilaterally clear but diminished without crepitation or wheeze. Mild conversational dyspnea. Heart: Heart is regular rhythm, S1, S2. No murmurs, gallops or rubs. Abdomen: Abdomen is soft, nontender, obese. Bowels sounds present in all quadrants. Scrotum/penis pink in color with severe generalized edema. Extremities: No clubbing, cyanosis, or edema. Peripheral pulses palpable. No calf tenderness. Neurological: Patient is awake and alert to person, place and time. Following simple commands, moving all extremities. Weight Current Weight Dosing Weight: 193.2 kg (09/16/23) Current Weight: 193.2 kg (09/16/23) Dosing Weight: 196.3 kg (09/12/23) Current Weight: 194.8 kg (09/16/23) Medications Medications (28) Active Scheduled: (14) albuterol - ipratropium 2.5 mg-0.5 mg/3 mL Inhal Sejal UD 3 mL, Inhalation, QIDRT amiodarone 200 mg tablet 200 mg 1 tab(s), Oral, qDay cefdinir 300 mg, Oral, BID doxycycline hyclate 100 mg Capsule 100 mg 1 cap(s), Oral, BID furosemide 20 mg/2 mL vial 20 mg 2 mL, IV Push, Once lidocaine patch REMOVAL 1 EA, Miscellaneous, q24h lidocaine patch REMOVAL 1 EA, Miscellaneous, q24h lidocaine topical 4% patch 1 patch(es), Transdermal, q24h metoprolol tartrate 25 mg tablet 25 mg 1 tab(s), Oral, BID miconazole topical 2% Powder 1 julia, Topical, BID Nicoderm patch REMOVAL 1 EA, Miscellaneous, q24h nicotine 21 mg/24 hr ER patch 21 mg 1 patch(es), Transdermal, q24h triamcinolone topical 0.1% Cream 15 Gram(s) 1 julia, Topical, BID warfarin 2.5 mg tablet 2.5 mg 1 tab(s), Oral, qDay Continuous: (0) PRN: (14) acetaminophen 325 mg Tablet 650 mg 2 tab(s), Oral, q4h acetaminophen 325 mg Tablet 650 mg 2 tab(s), Oral, q4h albuterol - ipratropium 2.5 mg-0.5 mg/3 mL Inhal Sejal UD 3 mL, Inhalation, q4hRT benzonatate 100 mg Capsule 100 mg 1 cap(s), Oral, TID calcium carbonate 500 mg Chewable 500 mg 1 tab(s), Chewed, TID docusate-senna (Senokot S) 50 mg-8.6 mg Tablet 2 tab(s), Oral, BID guaifenesin 100 mg/5 mL Liquid SUGAR-FREE 120 mL 200 mg 10 mL, Oral, q4h LORAZEPam 2 mg/mL 1 mL vial 1 mg 0.5 mL, IV Push, q30min melatonin 3 mg tablet 6 mg 2 tab(s), Oral, qHS morphine 2 mg/mL 1 mL syringe 2 mg 1 mL, IV Push, q3h ondansetron 2 mg/ 1 mL 2 mL INJ 4 mg 2 mL, IV Push, q4h oxycodone 5 mg tablet (immediate release) 5 mg 1 tab(s), Oral, q6hr oxycodone 5 mg tablet (immediate release) 10 mg 2 tab(s), Oral, q6hr polyethylene glycol 3350 - UD packet 17 gram(s) 15 mL, Oral, Daily Lab Results 09/16 05:14 Protime: 44.0 H PT International Ratio: 3.8 Glucose Level: 93 Sodium Level: 143 Potassium Level: 4.6 BUN: 25 H Creatinine Lvl (s): 1.59 H 09/15 05:24 Protime: 32.2 H PT International Ratio: 2.8 Glucose Level: 122 H Sodium Level: 139 Potassium Level: 5.3 H BUN: 21 H Creatinine Lvl (s): 1.41 H Imaging Results and Diagnostics XR Chest 2 Views Result Date: September 15, 2023 Verified By: WILLIS LAI DO CLINICAL STATEMENT: IMPRESSION: Small right pleural effusion and basilar opacities. US Scrotum Contents Result Date: September 12, 2023 Verified By: PAIGE RAY MD CLINICAL STATEMENT: IMPRESSION: Very extensive diffuse scrotal soft tissue edema/cellulitis. No discrete drainable fluid collections are seen on this study. Normal testicles with no evidence of torsion or mass. I have personally reviewed the images of this examination and agree with the resident's findings and interpretation. CT Abd/Pelvis w/ IV Contrast Only Result Date: September 12, 2023 Verified By: RACHELL DENNIS MD CLINICAL STATEMENT: IMPRESSION: 1. Findings of cellulitis involving the pannus without soft tissue air or organized fluid collection. Please note, the scrotum or perineal soft tissues are not captured on this exam. 2. Favored hyperplastic/reactive inguinal and right external iliac chain lymphadenopathy. Attention on follow-up recommended. 3. Small volume ascites and diffuse anasarca. I have personally reviewed the images of this examination and agree with the resident's findings and interpretations. EKG No qualifying data available. Assessment/Plan 1. Edema Acute, ongoing. Feel that scrotal edema is now more likely due to fluid overload rather than the cellulitis. Continue lasix 20 mg IV BID. BNP 2067. Baseline weight is around 400 lbs which was confirmed on PCP's note dated 07/28/2023. His weight was around 431.9 lbs on arrival and down to 425 this am. Chest x-ray demonstrated small right pleural effusion and basilar opacities. Echocardiogram done -shows EF 55-60%, unknown diastolic function, wall motion abnormalities and RVSP 60. Troponin negative x 2. Right side heart cath in 07/2022 negative for obstruction. 2. Abdominal wall cellulitis Acute, new onset, unknown cause, erythema largely resolved. No leukocytosis. Lactic acid negative. Discontinued Vancomycin IV and Unasyn yesterday. Will continue doxycycline 100 mg PO BID and Cefdinir 300 mg PO BID. Monitor area for worsening/improvement. 3. Cellulitis of penis Acute, new onset. Plan as above. 4. Sleep apnea Chronic. Patient does not use CPAP currently. He may wear oxygen as needed. 5. COPD - Chronic obstructive pulmonary disease Chronic. Continue duoneb aerosols as needed. Patient does not want any more aerosols as he feels they make him nauseated. 6. Alcohol abuse Chronic. Will continue lorazepam as needed for alcohol withdrawal. Will hold off on CIWA for now. 7. Cigarette smoker Active Chronic, daily smoker. Encouraged cessation. May have nicotine patch daily. 8. BMI 50.0-59.9, adult Chronic. BMI 62 today. Encouraged diet and exercise. Obesity complicating all facets of care. Patient sees Palliative care due to bone mets to thoracic pain. Call placed to transfer center at [facility] as patient will require urgent cardiology consult. DVT prophylaxis with warfarin. INC 3.8 this am - on hold today. Repeat INR in am. Code status: Full Code. Labs, diagnostic test and progress notes reviewed as noted in HPI. Plan of care discussed with patient. All questions answered. Patient verbalizes understanding and is agreeable with plan of care. This case was discussed with collaborating physician, Dr. Regina Sanchez. Anticipated Date of Discharge ?? Time Spent 45 minutes spent reviewing past diagnostic tests, reviewing lab results, vital sign trends, medicalhistory, reviewing medications and ordering home medications, examining patient, discussed plan of care with care team, collaborating with physician, and documenting in chart. Digitally Signed by MURALI MAGANA on 09/17/2023 02:28 PM [facility]08-04-2024 [facility] Progress note At rest on 2L, Pt SpO2 93%, HR66 O2 taken off by [employer] At rest on room air, Pt SpO2 82%, HR78 O2 placed back on Pt at 2L Pt qualifies for supplemental O2 at this time Digitally Signed by Ruthy Oconnor RT on 09/17/2023 09:06 AM [place] [id number] [facility] Progress note Pt has refused last 8 scheduled breathing treatments. States no current SOB Digitally Signed by Ruthy Oconnor RT on 09/16/2023 11:27 AM [facility]08-03-2024 Note Date of Service 09/16/2023 Chief Complaint edema Subjective Patient seen and evaluated this morning. Patient looks much better today. Yesterday patient had moist-sounding respirations and nausea. Troponin was checked x 2 and was negative. BNP was elevated to 2067. Increased Lasix to 40 mg IV BID. Weight is down today about 5 lbs. Overall, patient looks muchimproved. We have not been able to wean patient off of oxygen. He does have sleep apnea but does not wear a CPAP at home. He is also likely to have obesity hypoventilation syndrome. Chest x-ray revealed small right pleural effusion and bibasilar opacities. We will work on qualifying patient for oxygen today. We will change him to oral lasix today after one more IV dose. Patient encouraged to follow-up with [facility] cardiology. He states that he had to go [place] larger hospital to follow-up with cardiology and felt that he would always have to go to [place] for cardiology. Reviewed patient's chart and he was transferred last July 2022 from [facility] to [facility] due to right atrial mass and thrombus. He had a right heart cath at [facility] to remove the mass and thrombus and that revealed nonobstructive cardiomyopathy. His post-op follow-up visit indicated that he did not have to return to [facility] again. Depending on the results of his repeat echo yesterday, he would likely be able to follow-up with local cardiology to follow his heart failure. Patient complaining of constipation today and nursing stated that he has PRNs available for him. His cellulitis appears to be significantly better today. He does still have edema of his scrotum but feel that it is due to right-sided heart failure plus/minus the cellulitis. It may just take time for the edema to decrease but the lasix should help. Patient denies any fever, chills, chest pain, abdominal pain, nausea or dysuria. All questions answered. Objective Vitals and Measurements T: 36.3 C (Oral) TMIN: 36.3 C (Oral) TMAX: 36.8 C (Oral) HR: 76 (Apical) RR: 20 BP: 176/95 SpO2: 94% WT: 194.8 kg Intake and Output 7AM Yesterday to 7AM Today Intake and Output (Last 24 hours) Intake Oral Intake 400.00 Output Emesis 800.00 Urine Voided 2325.00 Urine Count 3.00 Emesis Count 2.00 Total Summary Total Intake 400.00 Total Output 3125.00 Fluid Balance -2725.00 Physical Exam General: No acute distress. Patient is alert, chronically ill-appearing. Skin: No rash. Skin is warm, dry and intact. HEENT: Head is normocephalic, atraumatic. Pupils are equal, round and reactive. Neck: Supple. No lymphadenopathy, thyromegaly. Lungs: Bilaterally clear but diminished without crepitation or wheeze. Unlabored. Heart: Heart is regular rhythm, S1, S2. No murmurs, gallops or rubs. Abdomen: Abdomen is soft, nontender, morbidly obese. Bowels sounds present in all quadrants. Extremities: No clubbing, cyanosis, or edema. Peripheral pulses palpable. No calf tenderness. Neurological: Patient is awake and alert to person, place and time. Following simple commands, moving all extremities. Weight Current Weight Dosing Weight: 196.3 kg (09/12/23) Current Weight: 194.8 kg (09/16/23) Current Weight: 197 kg (09/15/23) Medications Medications (28) Active Scheduled: (14) albuterol - ipratropium 2.5 mg-0.5 mg/3 mL Inhal Sejal UD 3 mL, Inhalation, QIDRT amiodarone 200 mg tablet 200 mg 1 tab(s), Oral, qDay ampicillin-sulbactam MB+ 3 gram(s) 100 mL, IV Piggyback, q6hr furosemide 40 mg/4 mL vial 40 mg 4 mL, IV Push, BID lidocaine patch REMOVAL 1 EA, Miscellaneous, q24h lidocaine patch REMOVAL 1 EA, Miscellaneous, q24h lidocaine topical 4% patch 1 patch(es), Transdermal, q24h metoprolol tartrate 25 mg tablet 25 mg 1 tab(s), Oral, BID miconazole topical 2% Powder 1 julia, Topical, BID Nicoderm patch REMOVAL 1 EA, Miscellaneous, q24h nicotine 21 mg/24 hr ER patch 21 mg 1 patch(es), Transdermal, q24h triamcinolone topical 0.1% Cream 15 Gram(s) 1 julia, Topical, BID vancomycin 2,000 mg 40 mL, IV Piggyback, q24h warfarin 2.5 mg tablet 2.5 mg 1 tab(s), Oral, qDay Continuous: (0) PRN: (14) acetaminophen 325 mg Tablet 650 mg 2 tab(s), Oral, q4h acetaminophen 325 mg Tablet 650 mg 2 tab(s), Oral, q4h albuterol - ipratropium 2.5 mg-0.5 mg/3 mL Inhal Sejal UD 3 mL, Inhalation, q4hRT benzonatate 100 mg Capsule 100 mg 1 cap(s), Oral, TID calcium carbonate 500 mg Chewable 500 mg 1 tab(s), Chewed, TID docusate-senna (Senokot S) 50 mg-8.6 mg Tablet 2 tab(s), Oral, BID guaifenesin 100 mg/5 mL Liquid SUGAR-FREE 120 mL 200 mg 10 mL, Oral, q4h LORAZEPam 2 mg/mL 1 mL vial 1 mg 0.5 mL, IV Push, q30min melatonin 3 mg tablet 6 mg 2 tab(s), Oral, qHS morphine 2 mg/mL 1 mL syringe 2 mg 1 mL, IV Push, q3h ondansetron 2 mg/ 1 mL 2 mL INJ 4 mg 2 mL, IV Push, q4h oxycodone 5 mg tablet (immediate release) 5 mg 1 tab(s), Oral, q6hr oxycodone 5 mg tablet (immediate release) 10 mg 2 tab(s), Oral, q6hr polyethylene glycol 3350 - UD packet 17 gram(s) 15 mL, Oral, Daily Lab Results 09/15 05:24 Protime: 32.2 H PT International Ratio: 2.8 Glucose Level: 122 H Sodium Level: 139 Potassium Level: 5.3 H BUN: 21 H Creatinine Lvl (s): 1.41 H 09/14 05:44 Protime: 27.2 H PT International Ratio: 2.3 Glucose Level: 102 Sodium Level: 141 Potassium Level: 5.2 H BUN: 20 H Creatinine Lvl (s): 1.46 H Imaging Results and Diagnostics XR Chest 2 Views Result Date: September 15, 2023 Verified By: WILLIS LAI DO CLINICAL STATEMENT: IMPRESSION: Small right pleural effusion and basilar opacities. US Scrotum Contents Result Date: September 12, 2023 Verified By: PAIGE RAY MD CLINICAL STATEMENT: IMPRESSION: Very extensive diffuse scrotal soft tissue edema/cellulitis. No discrete drainable fluid collections are seen on this study. Normal testicles with no evidence of torsion or mass. I have personally reviewed the images of this examination and agree with the resident's findings and interpretation. CT Abd/Pelvis w/ IV Contrast Only Result Date: September 12, 2023 Verified By: RACHELL DENNIS MD CLINICAL STATEMENT: IMPRESSION: 1. Findings of cellulitis involving the pannus without soft tissue air or organized fluid collection. Please note, the scrotum or perineal soft tissues are not captured on this exam. 2. Favored hyperplastic/reactive inguinal and right external iliac chain lymphadenopathy. Attention on follow-up recommended. 3. Small volume ascites and diffuse anasarca. I have personally reviewed the images of this examination and agree with the resident's findings and interpretations. EKG No qualifying data available. Assessment/Plan 1. Edema Acute, ongoing. Feel that scrotal edema is now more likely due to right-sided heart failure rather than the cellulitis. Increased lasix to 40 mg IV BID yesterday. BNP 2067. Patient had a 5 lb weight loss in 24 hours. Chest x-ray demonstrated small right pleural effusion and basilar opacities. Echocardiogram done - no report yet. Troponin negative x 2. Right side heart cath in 07/2022 negative for obstruction. 2. Abdominal wall cellulitis Acute, new onset, unknown cause, erythema largely resolved. No leukocytosis. Lactic acid negative. Discontinued Vancomycin IV and Unasyn today. Will start doxycycline 100 mg PO BID and Augmentin 1 tab PO BID. Monitor area for worsening/improvement. Repeat CBC and BMP in the am. 3. Cellulitis of penis Acute, new onset. Plan as above. 4. Sleep apnea Chronic. Patient does not use CPAP currently. He may wear oxygen as needed. 5. COPD - Chronic obstructive pulmonary disease Chronic. Continue duoneb aerosols as needed. Patient does not want any more aerosols as he feels they make him nauseated. 6. Alcohol abuse Chronic. Will start Ativan IV as needed for alcohol withdrawal. Will hold off on CIWA for now. 7. Cigarette smoker Active Chronic, daily smoker. Encouraged cessation. May have nicotine patch daily. 8. BMI 50.0-59.9, adult Chronic. BMI 62 today. Encouraged diet and exercise. DVT prophylaxis with warfarin, INR 2.8 today. Code status: Full Code. Labs, diagnostic test and progress notes reviewed as noted in HPI. Plan of care discussed with patient. All questions answered. Patient verbalizes understanding and is agreeable with plan of care. This case was discussed with collaborating physician, Dr. Regina Sanchez. Anticipated Date of Discharge next 24-48 hours Time Spent 45 minutes spent reviewing past diagnostic tests, reviewing lab results, vital sign trends, medicalhistory, reviewing medications and ordering home medications, examining patient, discussed plan of care with care team, reviewed records from 07/2022, collaborating with physician, and documenting in chart. Digitally Signed by MURALI MAGANA on 09/16/2023 10:54 AM [facility]08-03-2024 Nurse Progress note Pt up to restroom without O2, ambulated back to bed and SaO2 87% on room air. Increased to 94% on 3L O2 per n/c. Digitally Signed by Fern Montes RN on 09/16/2023 10:41 AM [facility]08-02-2024 Nurse Progress note Radiology results reported to [facility], per Otilia Hammonds CNP on return call no new orders at this time. Pt is appropriately covered with ATB at this time, will continue to monitor closely and notify her of any change in condition. Digitally Signed by Nusrat Bennett LPN on 09/15/2023 11:24 PM [facility]08-02-2024 Note ORIGINAL EXAMINATION: TWO XRAY VIEWS OF THE CHEST 09/15/2023 3:25 pm COMPARISON: [facility] chest radiograph 08/04/2022. HISTORY: ORDERING SYSTEM PROVIDED HISTORY: Reason for Exam: dypsnea FINDINGS: Small right pleural effusion with adjacent atelectasis. Suggestion of posterior basilar opacities along the lateral radiograph. No pneumothoraces. Cardiomediastinal silhouette is stable from prior and mildly enlarged. Right-sided MediPort in place. Interval median sternotomy. IMPRESSION: Small right pleural effusion and basilar opacities. Interpreted by: Willis Lai Preliminary Report By: Willis Lai Electronically signed By Willis Lai Dictated Date: 09/15/2023 8:52:14 PM Prelim Date: 09/15/2023 8:54:43 PM Sign Date: 09/15/2023 8:54:43 PM Ordering Provider: MURALI [facility]08-02-2024 Note Date of Service 09/15/2023 Chief Complaint shortness of breath, nausea Subjective Patient seen and evaluated this morning while resting in bed. He states he is very nauseated this morning and proceeds to start dry-heaving and then vomiting. Patient's scrotum appears to be more of a normal pink skin color today so his cellulitis appears to be resolving. The edema in scrotum appears to be slightly better today but still present. Patient was given 40 mg Lasix IV with 3025 cc of urine out yesterday. Patient has moist-sounding respirations and his face becomes purple with any movement and with coughing or dry heaving. He states "I think I'm having problems with my heart now." He denies any chest pain but has remained on 2L of oxygen throughout his stay. Will check an echocardiogram today to make sure heart failure is not worsening. Will order chest x-ray to check for pulmonary edema or infectious process. Pneumonia seems unlikely given he has been on IV antibiotics for several days now. Patient denies any chest pain, fever, chills, abdominal pain, or dysuria. Will ordertroponin to rule out cardiac event and BNP to assess fluid overload. All questions answered. Objective Vitals and Measurements T: 36.6 C (Oral) TMIN: 36.3 C (Oral) TMAX: 36.6 C (Oral) HR: 76 (Apical) RR: 20 BP: 154/97 SpO2: 96% WT: 197 kg Intake and Output 7AM Yesterday to 7AM Today Intake and Output (Last 24 hours) Intake Oral Intake 400.00 Output Urine Output Initial 1325.00 Urine Voided 2100.00 Urine Count 2.00 Emesis Count 1.00 Total Summary Total Intake 400.00 Total Output 3425.00 Fluid Balance -3025.00 Physical Exam General: No acute distress. Patient is alert, chronically ill-appearing. Skin: No rash. Skin is warm, dry and intact. HEENT: Head is normocephalic, atraumatic. Pupils are equal, round and reactive. Neck: Supple. No lymphadenopathy, thyromegaly. Lungs: Bilaterally clear but diminished without crepitation or wheeze. Unlabored. Moist-sounding respirations. Heart: Heart is regular rhythm, S1, S2. No murmurs, gallops or rubs. Abdomen: Abdomen is soft, nontender, morbidly obese. Bowels sounds present in all quadrants. Extremities: No clubbing, cyanosis, or edema. Peripheral pulses palpable. No calf tenderness. Neurological: Patient is awake and alert to person, place and time. Following simple commands, moving all extremities. Weight Current Weight Dosing Weight: 196.3 kg (09/12/23) Current Weight: 197 kg (09/15/23) Current Weight: 199.1 kg (09/14/23) Medications Medications (28) Active Scheduled: (14) albuterol - ipratropium 2.5 mg-0.5 mg/3 mL Inhal Sejal UD 3 mL, Inhalation, QIDRT amiodarone 200 mg tablet 200 mg 1 tab(s), Oral, qDay ampicillin-sulbactam MB+ 3 gram(s) 100 mL, IV Piggyback, q6hr furosemide 40 mg/4 mL vial 40 mg 4 mL, IV Push, qDay lidocaine patch REMOVAL 1 EA, Miscellaneous, q24h lidocaine patch REMOVAL 1 EA, Miscellaneous, q24h lidocaine topical 4% patch 1 patch(es), Transdermal, q24h metoprolol tartrate 25 mg tablet 25 mg 1 tab(s), Oral, BID miconazole topical 2% Powder 1 julia, Topical, BID Nicoderm patch REMOVAL 1 EA, Miscellaneous, q24h nicotine 21 mg/24 hr ER patch 21 mg 1 patch(es), Transdermal, q24h triamcinolone topical 0.1% Cream 15 Gram(s) 1 julia, Topical, BID vancomycin 1,500 mg 30 mL, IV Piggyback, q12h warfarin 2.5 mg tablet 2.5 mg 1 tab(s), Oral, qDay Continuous: (0) PRN: (14) acetaminophen 325 mg Tablet 650 mg 2 tab(s), Oral, q4h acetaminophen 325 mg Tablet 650 mg 2 tab(s), Oral, q4h albuterol - ipratropium 2.5 mg-0.5 mg/3 mL Inhal Sejal UD 3 mL, Inhalation, q4hRT benzonatate 100 mg Capsule 100 mg 1 cap(s), Oral, TID calcium carbonate 500 mg Chewable 500 mg 1 tab(s), Chewed, TID docusate-senna (Senokot S) 50 mg-8.6 mg Tablet 2 tab(s), Oral, BID guaifenesin 100 mg/5 mL Liquid SUGAR-FREE 120 mL 200 mg 10 mL, Oral, q4h LORAZEPam 2 mg/mL 1 mL vial 1 mg 0.5 mL, IV Push, q30min melatonin 3 mg tablet 6 mg 2 tab(s), Oral, qHS morphine 2 mg/mL 1 mL syringe 2 mg 1 mL, IV Push, q3h ondansetron 2 mg/ 1 mL 2 mL INJ 4 mg 2 mL, IV Push, q4h oxycodone 5 mg tablet (immediate release) 5 mg 1 tab(s), Oral, q6hr oxycodone 5 mg tablet (immediate release) 10 mg 2 tab(s), Oral, q6hr polyethylene glycol 3350 - UD packet 17 gram(s) 15 mL, Oral, Daily Lab Results 09/14 05:44 Protime: 27.2 H PT International Ratio: 2.3 Glucose Level: 102 Sodium Level: 141 Potassium Level: 5.2 H BUN: 20 H Creatinine Lvl (s): 1.46 H 08/01 05:46 WBC: 7.3 Hgb: 13.1 L Hct: 41.3 L Platelet: 224 Neutrophil %: 72.5 Protime: 25.4 H PT International Ratio: 2.2 Glucose Level: 101 Sodium Level: 140 Potassium Level: 5.1 BUN: 21 H Creatinine Lvl (s): 1.52 H Imaging Results and Diagnostics US Scrotum Contents Result Date: September 12, 2023 Verified By: PAIGE RAY MD CLINICAL STATEMENT: IMPRESSION: Very extensive diffuse scrotal soft tissue edema/cellulitis. No discrete drainable fluid collections are seen on this study. Normal testicles with no evidence of torsion or mass. I have personally reviewed the images of this examination and agree with the resident's findings and interpretation. CT Abd/Pelvis w/ IV Contrast Only Result Date: September 12, 2023 Verified By: RACHELL DENNIS MD CLINICAL STATEMENT: IMPRESSION: 1. Findings of cellulitis involving the pannus without soft tissue air or organized fluid collection. Please note, the scrotum or perineal soft tissues are not captured on this exam. 2. Favored hyperplastic/reactive inguinal and right external iliac chain lymphadenopathy. Attention on follow-up recommended. 3. Small volume ascites and diffuse anasarca. I have personally reviewed the images of this examination and agree with the resident's findings and interpretations. EKG No qualifying data available. Assessment/Plan 1. Edema Acute, ongoing. Feel that scrotal edema is now more likely due to right-sided heart failure rather than the cellulitis. Increase lasix to 40 mg IV BID. Send patient for chest x-ray and echocardiogramtoday. Check troponin now and in 6 hours with BNP. 2. Abdominal wall cellulitis Acute, new onset, unknown cause, erythema largely resolved. No leukocytosis. Lactic acid negative. Continue Vancomycin IV - pharmacy to dose. Continue Unasyn 3 grams IV q6 hours. Will likely transition to doxycycline and augmentin tomorrow if patient feeling better. Monitor area for worsening/improvement. Repeat CBC and BMP in the am. 3. Cellulitis of penis Acute, new onset. Plan as above. 4. Sleep apnea Chronic. Patient does not use CPAP currently. He may wear oxygen as needed. 5. COPD - Chronic obstructive pulmonary disease Chronic. Continue duoneb aerosols as needed. Patient does not want any more aerosols as he feels they make him nauseated. 6. Alcohol abuse Chronic. Will start Ativan IV as needed for alcohol withdrawal. Will hold off on CIWA for now. 7. Cigarette smoker Active Chronic, daily smoker. Encouraged cessation. May have nicotine patch daily. 8. BMI 50.0-59.9, adult Chronic. BMI 62 today. Encouraged diet and exercise. DVT prophylaxis with warfarin, INR 2.3 today. Code status: Full Code. Labs, diagnostic test and progress notes reviewed as noted in HPI. Plan of care discussed with patient. All questions answered. Patient verbalizes understanding and is agreeable with plan of care. This case was discussed with collaborating physician, Dr. Regina Sanchez. Anticipated Date of Discharge unsure at this point Time Spent 45 minutes spent reviewing past diagnostic tests, reviewing lab results, vital sign trends, medicalhistory, reviewing medications and ordering home medications, examining patient, discussed plan of care with care team, collaborating with physician, and documenting in chart. Digitally Signed by MURALI MAGANA on 09/15/2023 02:50 PM [facility]08-02-2024 Note* Exam Date Time Procedure Performing Provider Status 09/15/23 1:58 PM Echocardiogram, Adult - CV Auth (Verified) [facility] 08-02-2024 Nurse Progress note At approximately 0900, myself, Murali BUCKNER, and Adrianne physical therapist responded to this patient yelling for help from the solarium. Per pt, while eating her breakfast, she became dizzy, lightheaded andnauseous. She said she feared she was going to fall out of her chair. Staff used the maylin lift to transport pt back to bed. By the time she was back to bed, symptoms resolved. Patient claimed she had been yelling for "a while" before anyone heard her, so I provided her with the nursing station phone number for future meals. Digitally Signed by Andreina Martin RN on 09/15/2023 10:24 AM [facility]07-30-2024 Note Date of Service 09/12/2023 Chief Complaint Pt alert and oriented. States noticed scrotum swelling since Monday. States progressively worse. History of Present Illness Patient is a 43-year-old male, who follows with Dr. Prosper Manjarrez with a past medical history significant for renal cell carcinoma, morbid obesity, COPD, pulmonary embolism on warfarin, alcohol and tobacco abuse, presents to [facility] emergency department with the chief complaint of abdominal wall cellulitis and scrotal edema. Patient states that he was seen on 08/30 due to urinary frequency and hematuria and was started on antibiotics for urinary tract infection. About 3 days ago, he started having swelling of his scrotum. At first, he thought he had edema of his thigh but thenrealized it was his scrotum that was edematous. The edema continued to increase and he has had fairly significant pain in his scrotum due to this. He also reports penile edema but reports that he is still able to urinate although he feels that it is getting more difficult. He denies any fever, chills, cough, shortness of breath, chest pain, abdominal pain, nausea or diarrhea. In the emergency department, CT of the abdomen/pelvis revealed findings of cellulitis involving thepannus without soft tissue air or organized fluid collection, please note, the scrotum or perineal soft tissues are not captured on this exam; favored hyperplastic/reactive inguinal and right external iliac chain lymphadenopathy; and small volume ascites and diffuse anasarca. Ultrasound of scrotum revealed very extensive diffuse scrotal soft tissue edema/cellulitis. No discrete drainable fluid collections are seen on this study. Normal testicles with no evidence of torsion or mass. CBC was unremarkable. BMP significant for glucose 159, BUN 20 and creatinine 1.62. INR 2.0.Lactic acid within normal limits. Urology was consulted regarding this patient but felt that patient was stable to stay at [facility] for antibiotic treatment of scrotal cellulitis because he has no evidence of Sudeep's gangrene. The case was discussed with the ED physician who recommended admission dueto significant cellulitis and need for IV antibiotics. Patient will be transferred to medical surgical unit for further evaluation and treatment. We will continue Vancomycin IV - pharmacy to dose. Sta rt Cefazolin 2 grams IV q8 hours. We will elevate scrotum when patient in bed. Continue to monitor area for improvement/worsening. Repeat CBC and BMP in the am. Patient seen and evaluated this afternoon while resting in bed in the ED. He states that he first noticed swelling initially but then had increased pain. Discussed with him the plan of admission and continuing IV antibiotics. Patient requesting assistance with getting cleaned up once he goes up to the floor. Patient assured that we will help him get cleaned up. On exam, patient has erythema and edema of entire scrotum and penis. His pannus is also erythematous, firm and warm to touch. Patient states as the pain increased he was unable to walk much less perform self-care. He will transfer to medical surgical unit as soon as bed is ready. All questions answered. Review of Systems Review of Systems: Reviewed in detail, including general health, HEENT, cardiovascular, respiratory, gastrointestinal, genitourinary, endocrine, musculoskeletal, neurologic, vascular, skin, and psychiatric. All are negative except for those listed in the History of Present Illness. Physical Exam Vitals and Measurements T: 36.0 C (Oral) HR: 63 RR: 20 BP: 148/72 SpO2: 94% No qualifying data available. General: No acute distress. Patient is alert, chronically ill-appearing. Skin: No rash. Skin is warm, dry and intact. HEENT: Head is normocephalic, atraumatic. Pupils are equal, round and reactive. Neck: Supple. No lymphadenopathy, thyromegaly. Lungs: Bilaterally clear but diminished without crepitation or wheeze. Unlabored. Heart: Heart is regular rhythm, S1, S2. No murmurs, gallops or rubs. Abdomen: Abdomen is firm, morbidly obese, and tender to palpation in pannus. Erythema and edema noted to pannus, scrotum and penis. Bowels sounds present in all quadrants. Extremities: No clubbing, cyanosis, or edema. Peripheral pulses palpable. No calf tenderness. Neurological: Patient is awake and alert to person, place and time. Following simple commands, moving all extremities. Lab Results 09/11 09:00 WBC: 7.1 Hgb: 13.5 L Hct: 40.9 L Platelet: 240 Neutrophil %: 80.4 H Protime: 22.7 H PT International Ratio: 2.0 Glucose Level: 159 H Sodium Level: 143 Potassium Level: 4.1 BUN: 20 H Creatinine Lvl (s): 1.62 H Imaging Results and Diagnostics US Scrotum Contents Result Date: September 12, 2023 Verified By: PAIGE RAY MD CLINICAL STATEMENT: IMPRESSION: Very extensive diffuse scrotal soft tissue edema/cellulitis. No discrete drainable fluid collections are seen on this study. Normal testicles with no evidence of torsion or mass. I have personally reviewed the images of thisexamination and agree with the resident's findings and interpretation. CT Abd/Pelvis w/ IV Contrast Only Result Date: September 12, 2023 Verified By: RACHELL DENNIS MD CLINICAL STATEMENT: IMPRESSION: 1. Findings of cellulitis involving the pannus without soft tissue air or organized fluid collection. Please note, the scrotum or perineal soft tissues are not captured on this exam. 2. Favored hyperplastic/reactive inguinal and right external iliac chain lymphadenopathy. Attention on follow-up recommended. 3. Small volume ascites and diffuse anasarca. I have personally reviewed the images of this examination and agree with the resident's findings and interpretations. Assessment/Plan 1. Abdominal wall cellulitis Acute, new onset, unknown cause. No leukocytosis. Lactic acid negative. Continue Vancomycin IV - pharmacy to dose. Start Cefazolin 2 grams IV q 8 hours. Monitor area for worsening/improvement. RepeatCBC and BMP in the am. 2. Cellulitis of penis Acute, new onset. Plan as above. 3. Sleep apnea Chronic. Patient does not use CPAP currently. He may wear oxygen as needed. 4. COPD - Chronic obstructive pulmonary disease Chronic. Start duoneb aerosols as needed and scheduled. 5. Alcohol abuse Chronic. Will start Ativan IV as needed for alcohol withdrawal. Will hold off on CIWA for now. 6. Cigarette smoker Active Chronic, daily smoker. Encouraged cessation. May have nicotine patch daily. 7. BMI 50.0-59.9, adult Chronic. BMI 62 today. Encouraged diet and exercise. DVT prophylaxis with Coumadin, daily INR. INR currently 2.0. Code status: Full Code. Labs, diagnostic test and progress notes reviewed as noted in HPI. Plan of care discussed with patient. All questions answered. Patient verbalizes understanding and is agreeable with plan of care. This case was discussed with collaborating physician, Dr. James Ferrer. 75 minutes spent reviewing past diagnostic tests, reviewing lab results, vital sign trends, medicalhistory, reviewing medications and ordering home medications, examining patient, discussed plan of care with care team, collaborating with physician, and documenting in chart. Problem List/Past Medical History Ongoing Alcohol abuse Left renal mass. 9.6-cm. With perinephric fat invasion. With lytic bony lesion and pulmonary nodules concerning for mets. BS, 07/2020 - neg. CT brain, 07/2020 - neg. S/P Radical nephrectomy 08/14/20. Metastatic renal cell carcinoma. S/P Left cytoreductive nephrectomy 08/14/20. Final path - ccRCC withsarcomatoid features. Morbid obesity due to excess calories No chronic diseases present T11 vertebral fracture Tobacco abuse Viral gastroenteritis Cigarette smoker Active Lung nodule, multiple Active Marijuana user Active Secondary malignant neoplasm of bone (disorder) Active Historical Renal cell carcinoma (disorder) Active Procedure/Surgical History Open heart surgery: 08/17/22 Tooth extraction: 08/28/21 Nephrectomy, including partial ureterectomy, any open approach including rib resection; radical, with regional lymphadenectomy and/or vena caval thrombectomy: 08/14/20 Tonsillectomy Boost radiation therapy Chemotherapy Medications Home Medications (13) Active amiodarone 200 mg oral tablet 200 mg = 1 tab(s), Oral, qDay cephalexin 500 mg oral capsule clindamycin 1% topical lotion 1 julia, Topical, BID ketoconazole 2% topical shampoo Lopressor 25mg--USE metoprolol tartrate 25 mg oral tablet , BID oxyCODONE 5 mg oral tablet ( IMMEDIATE release ) 5 mg = 1 tab(s), PRN, Oral, q8h PURELAX 17 GRAM/DOSE POWDER (GRAM) 1cup powder, PRN, Oral, qDay senna (sennosides) 8.6 mg oral tablet 17.2 mg = 2 tab(s), PRN, Oral, BID Stiolto Respimat 60 ACT 2.5 mcg-2.5 mcg/inh inhalation aerosol 2 puff(s), Inhalation, q24h Trelegy Ellipta 100 mcg-62.5 mcg-25 mcg/inh inhalation powder 1 puff(s), Inhalation, qDay triamcinolone 0.1% topical cream 1 julia, Topical, BID warfarin 5 mg oral tablet 2.5 mg = 0.5 tab(s), Oral, qDay warfarin 5 mg oral tablet Allergies penicillin Swelling Social History Smoking Status - 11/07/2016 Current every day smoker Alcohol - Medium Risk, 11/07/2016 Use: Past. Type: Beer. Frequency: Daily. Previous treatment: Outpatient. Has alcohol use interferedwith work or home life: No. Do you ever drink more than intended: Yes. Has anyone been hurt or at risk by your drinking: Yes. Ready to change: Yes., 04/14/2023 Employment/School Status: Employed., 12/16/2020 Home/Environment Domestic Concerns: None. Living situation: Home with assistance. 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 Safe place to go: Yes. Lives In: Single level home, 1st floor bedroom, 1st floor bathroom, 1st floor laundry., 08/14/2020 Nutrition/Health Caffeine intake amount: couple bottles a week., 10/20/2022 Type of diet: Regular. Appetite Excellent. Eating Difficulties None., 08/14/2020 Substance Abuse - Denies Substance Abuse, 11/07/2016 Use: Current. Type: Marijuana. Frequency: 1-2 times per month. IV drug use; No. Ready to change: No. Concerns about substance abuse in household: No., 08/14/2020 Tobacco Nicotine Use: 10 or more cigarettes (1/2 pack or more)/day in last 30 days, Quit July; started again the end of August or beginning of September. Type: Cigarettes. Started at age: 13 Years. Ready to change: Yes., 10/20/2022 Family History Bladder cancer: Negative: Mother, Father, Sister, Brother, Daughter, Son and Grandparent. Crohn's disease: Sister. Diabetes: Father. HTN - Hypertension: Mother and Father. Heart attack: Father. Heart disease: Negative: Mother, Father, Sister, Brother, Daughter, Son and Grandparent. Hypertension: Mother and Father.Negative: Sister, Brother, Daughter, Son and Grandparent. Kidney disease: Negative: Mother, Father, Sister, Brother, Daughter, Son and Grandparent. Kidney stone: Mother and Sister.Negative: Father, Brother, Daughter, Son and Grandparent. Prostate cancer: Negative: Father, Brother and Son. Renal cancer: Negative: Mother, Father, Sister, Brother, Daughter, Son and Grandparent. Rheumatoid arthritis: Mother. Health Status Family Member(s) Immunizations SARS-CoV-2 (COVID-19) mRNA-1273 vaccine: 0.25 unknown unit (04/15/21) SARS-CoV-2 (COVID-19) mRNA-1273 vaccine: 0.5 unknown unit (10/15/20) SARS-CoV-2 (COVID-19) mRNA-1273 vaccine: 0.5 unknown unit (09/17/20) Code Status Code Status - Ordered -- 09/12/23 13:08:00 EDT, Full Code, Constant Order Digitally Signed by MURALI MAGANA on 09/12/2023 04:40 PM Digitally Signed by JAMES FERRER MD [facility]07-30-2024 Evaluation + Plan noteExtracted from: Title:History and Physical Author:MURALI MAGANA Date:09/12/23 1. Abdominal wall cellulitis Acute, new onset, unknown cause. No leukocytosis. Lactic acid negative. Continue Vancomycin IV - pharmacy to dose. Start Cefazolin 2 grams IV q 8 hours. Monitor area for worsening/improvement. Repeat CBC and BMP in the am. 2. Cellulitis of penis Acute, new onset. Plan as above. 3. Sleep apnea Chronic. Patient does not use CPAP currently. He may wear oxygen as needed. 4. COPD - Chronic obstructive pulmonary disease Chronic. Start duoneb aerosols as needed and scheduled. 5. Alcohol abuse Chronic. Will start Ativan IV as needed for alcohol withdrawal. Will hold off on CIWA for now. 6. Cigarette smoker Active Chronic, daily smoker. Encouraged cessation. May have nicotine patch daily. 7. BMI 50.0-59.9, adult Chronic. BMI 62 today. Encouraged diet and exercise. DVT prophylaxis with Coumadin, daily INR. INR currently 2.0. Code status: Full Code. Labs, diagnostic test and progress notes reviewed as noted in HPI. Plan of care discussed with patient. All questions answered. Patient verbalizes understanding and is agreeable with plan of care. This case was discussed with collaborating physician, Dr. James Ferrer. 75 minutes spent reviewing past diagnostic tests, reviewing lab results, vital sign trends, medical history, reviewing medications and ordering home medications, examining patient, discussed plan of care with care team, collaborating with physician, and documenting in chart. Future Appointments Appointment Date:09/21/2023 01:00:00 PM Scheduled Provider: Location:[facility] Appointment Type:[facility] Labwork Appointment Date:09/21/2023 01:15:00 PM Scheduled Provider: Location:[facility] Appointment Type:INF Chemo: Infusion 60 min (1 hour) Appointment Date:10/12/2023 10:30:00 AM Scheduled Provider: Location:[facility] Appointment Type:yyCT Abdomen and Pelvis w/ Contrast 3 Appointment Date:10/12/2023 11:00:00 AM Scheduled Provider: Location:[facility] Appointment Type:yyCT Chest w/ Contrast 3 Appointment Date:10/19/2023 12:15:00 PM Scheduled Provider: Location:[facility] Appointment Type:INF Labwork Appointment Date:10/19/2023 01:00:00 PM Scheduled Provider:LIAN FUNG MD Location:[facility] Appointment Type:PALL OV Follow Up Appointment Date:10/19/2023 01:30:00 PM Scheduled Provider:BHAVIK TRIANA MD Location:[facility] Appointment Type:[facility] OV Follow Up w/Active Treatment Appointment Date:10/19/2023 02:00:00 PM Scheduled Provider: Location:[facility] Appointment Type:INF Chemo: Infusion 60 min (1 hour) Appointment Date:11/30/2023 03:30:00 PM Scheduled Provider:PROSPER MANJARREZ DO Location:[facility] Appointment Type:PC Wellness Annual Future Scheduled Tests Laboratory* Cortisol Level 09/21/23 * Cortisol Level 10/19/23 * Lactate Dehydrogenase 09/21/23 * Lactate Dehydrogenase 10/19/23 * Thyroid Stimulating Hormone 09/21/23 * Thyroid Stimulating Hormone 10/19/23 * Free T4 09/21/23 * Free T4 10/19/23 * Complete Blood Count 09/21/23 * Complete Blood Count 10/19/23 * Free T3 09/21/23 * Free T3 10/19/23 * Lipid Profile 11/27/23 * Complete Metabolic Panel 09/21/23 * Complete Metabolic Panel 10/19/23 * Complete Metabolic Panel 11/27/23 Radiology* CT Abdomen/Pelvis w/Oral Contrast Only 03/09/23 * CT Thorax w/ Contrast 10/12/23 * CT Thorax w/o Contrast 03/09/23 * CT Abdomen and Pelvis w/ contrast 10/12/23 [facility] 07-30-2024 Note ORIGINAL EXAMINATION: ULTRASOUND OF THE SCROTUM/TESTICLES WITH COLOR DOPPLER FLOW EVALUATION09/12/2023 11:21 am Scrotal Ultrasound with Duplex Doppler evaluation TECHNIQUE: Duplex ultrasound using B-mode/dey scaled imaging, Doppler spectral analysis and color flow Doppler was obtained of the testicles. Grayscale, color Doppler and spectral waveform evaluation COMPARISON: None. CT abdomen and pelvis obtained same day does not capture the scrotum. HISTORY: ORDERING SYSTEM PROVIDED HISTORY: Reason for Exam: scrotal abscess/cellulitis, history of UTI, scrotal swelling. Patient states no pain. FINDINGS: The exam is limited due to significant skin thickening and edema. Right testicle: 4.1 x 3.3 x 3.0 cm Left testicle: 4.6 x 3.2 x 2.9 cm Visualization of the bilateral testicles is severely limited due to skin thickening and edema. The visualized portions of the testicles show normal echogenicity. Color flow in the testicles is difficult to demonstrate due to depth from the skin surface. Spectral evaluation shows arterial waveforms in both testicles, venous waveforms are difficult to demonstrate for technical reasons. There is no obvious enlargement or hyperemia of the epididymis on either side. No distinct hydrocele or varicocele are seen. There is very extensive scrotal soft tissue edema/cellulitis. No discrete localized or drainable fluid collection is seen on these images. IMPRESSION: Very extensive diffuse scrotal soft tissue edema/cellulitis. No discrete drainable fluid collections are seen on this study. Normal testicles with no evidence of torsion or mass. I have personally reviewed the images of this examination and agree with the resident's findings and interpretation. Interpreted by: Paige Ray MD Preliminary Report By: Tanner Merrill Electronically signed By Paige Ray MD Dictated Date: 09/12/2023 11:37:42 AM Prelim Date: 09/12/2023 11:48:07 AM Sign Date: 09/12/2023 11:48:07 AM Ordering Provider: [facility]07-30-2024 Note ORIGINAL EXAMINATION: CT OF THE ABDOMEN AND PELVIS WITH CONTRAST 09/12/2023 10:49 am TECHNIQUE: CT of the abdomen and pelvis was performed with the administration of intravenous contrast. Multiplanar reformatted images are provided for review. Automated exposure control, iterative reconstruction, and/or weight based adjustment of the mA/kV was utilized to reduce the radiation dose to as low as reasonably achievable. COMPARISON: CT abdomen 07/20/2023 HISTORY: ORDERING SYSTEM PROVIDED HISTORY: Reason for Exam: Scrotal and abdominal cellulitis FINDINGS: Evaluation is somewhat limited secondary to quantum mottle from patient body habitus. The lung bases demonstrate scattered areas of subsegmental atelectasis/scarring. The heart is mildly enlarged without pericardial effusion. The liver appears diffusely hypoattenuating likely representing hepatic steatosis. No focal splenic lesion. The adrenal glands and adrenal glands are unremarkable. The gallbladder is collapsed with mild wall thickening and trace pericholecystic fluid. The left kidney is surgically absent. The right kidney demonstrates no hydronephrosis. The right ureter and bladder are unremarkable. Nondilated loops of small bowel. This a normal appendix is felt to be identified. The colon demonstrates no acute abnormality. Unchanged posterolateral left flank body wall hernia containing fat and a portion of the colon, similar to prior. Atherosclerotic nonaneurysmal abdominal aorta. Small volume ascites. No free intraperitoneal air. Scattered phleboliths. The prostate is unremarkable. There is skin thickening most notably involving the pannus with significant subcutaneous edema that extends superiorly into the flanks. There is no evidence of soft tissue gas or organized fluid collection within this region. There are multiple inguinal lymph nodes which measure up to 1.7 cm within the right inguinal region. 1.8 cm right external iliac chain lymph node (2, 108). The scrotum and inferior pelvic soft tissues not captured. Multilevel degenerative changes of the spine. There is an unchanged pathologic fracture of T11. IMPRESSION: 1. Findings of cellulitis involving the pannus without soft tissue air or organized fluid collection. Please note, the scrotum or perineal soft tissues are not captured on this exam. 2. Favored hyperplastic/reactive inguinal and right external iliac chain lymphadenopathy. Attention on follow-up recommended. 3. Small volume ascites and diffuse anasarca. I have personally reviewed the images of this examination and agree with the resident's findings and interpretations. Interpreted by: Rachell Dennis MD Preliminary Report By: Erich Unger Electronically signed By Rachell Dennis MD Dictated Date: 09/12/2023 10:59:46 AM Prelim Date: 09/12/2023 11:18:41 AM Sign Date: 09/12/2023 12:10:17 PM Ordering Provider: [place] [id number] Hospital Discharge instructions Follow Up Care 09/12/2023 08:25:16 With:PROSPER MANJARREZ DO Address: [address] [facility] [place] [phone] When: Unknown [facility] 07-18-2024 Hospital Discharge instructions Patient Education 08/31/2023 18:35:50 Hematuria Blood in the Urine Blood in the urine (hematuria) has many possible causes. If it occurs after an injury (such as a car accident or fall), it is most often a sign of bruising to the kidney or bladder. Common causes of blood in the urine include urinary tract infections, kidney stones, inflammation, tumors, or certainother diseases of the kidney or bladder. Menstruation can cause blood to appear in the urine sample, although it is not coming from the urinary tract. If only a trace amount of blood is present, it will show up on the urine test, even though the urine may be yellow and not pink or red. This may occur with any of the above conditions, as well as heavy exercise or high fever. In this case, your doctor may want to repeat the urine test on another day. This will show if the blood is still present. If it is, then other tests can be done to find out t he cause. Home care Follow these home care guidelines: If your urine does not appear bloody (pink, brown or red) then you do not need to restrict your activity in any way. If you can see blood in your urine, rest and avoid heavy exertion until your next exam. Do not use aspirin, blood thinners, or anti-platelet or anti- inflammatory medicines. These include ibuprofen and naproxen. These thin the blood and may increase bleeding. Follow-up care Follow up with your healthcare provider, or as advised. If you were injured and had blood in your urine, you should have a repeat urine test in 1 to 2 days. Contact your doctor for this test. A radiologist will review any X-rays that were taken. You will be told of any new findings that mayaffect your care. When to seek medical advice Call your healthcare provider right away if any of these occur: Bright red blood or blood clots in the urine (if you did not have this before) Weakness, dizziness or fainting New groin, abdominal, or back pain Fever of 100.4 F (38 C) or higher, or as directed by your healthcare provider Repeated vomiting Bleeding from the nose or gums or easy bruising [id number] [employer]. [address] [place] [address]. All rights reserved. This information is not intended as a substitute for professional medical care. Always follow yourhealthcare professional's instructions. 08/31/2023 18:35:46 Bladder Infection, Male (Adult) Bladder Infection, Male (Adult) You have a bladder infection. Urine is normally free of bacteria. But bacteria can get into the urinary tract from the skin around the rectum or it may travel in the blood from elsewhere in the body. This is called a urinary tract infection (UTI). An infection can occur anywhere in the urinary tract. It could be in a kidney (pyelonephritis)or in the bladder (cystitis) and urethra (urethritis). The urethra is the tube that drains the urine from the bladder through the tip of the penis. The most common place for a UTI is in the bladder. This is called a bladder infection. Most bladderinfections are easily treated. They are not serious unless the infection spreads up to the kidney. The terms bladder infection, UTI, and cystitis are often used to describe the same thing, but they aren t always the same. Cystitis is an inflammation of the bladder. The most common cause of cystitis is an infection. Keep in mind: Infections in the urine are called UTIs. Cystitis is usually caused by a UTI. Not all UTIs and cases of cystitis are bladder infections. Bladder infections are the most common type of cystitis. Symptoms of a bladder infection The infection causes inflammation in the urethra and bladder. This inflammation causes many of the symptoms. The most common symptoms of a bladder infection are: Pain or burning when urinating Having to go more often than usual Feeling like you need to go right away Only a small amount comes out Blood in urine Discomfort in your belly (abdomen), usually in the lower abdomen, above the pubic bone Cloudy, strong, or bad smelling urine Unable to urinate (retention) Urinary incontinence Fever Loss of appetite Older adults may also feel confused. Causes of a bladder infection Bladder infections are not contagious. You can't get one from someone else, from a toilet seat, or from sharing a bath. The most common cause of bladder infections is bacteria from the bowels. The bacteria get onto the skin around the opening of the urethra. From there they can get into the urine and travel up to the bladder. This causes inflammation and an infection. This usually happens because of: An enlarged prostate Poor cleaning of the genitals Procedures that put a tube in your bladder, like a Ochoa catheter Bowel incontinence Older age Not emptying your bladder (The urine stays there, giving the bacteria a chance to grow.) Dehydration (This allows urine to stay in the bladder longer.) Constipation (This can cause the bowels to push on the bladder or urethra and keep the bladder fromemptying.) Treatment Bladder infections are treated with antibiotics. They usually clear up quickly without complications. Treatment helps prevent a more serious kidney infection. Medicines Medicines can help in the treatment of a bladder infection: You may have been given phenazopyridine to ease burning when you urinate. It will cause your urine to be bright orange. It can stain clothing. You may have been prescribed antibiotics. Take this medicine until you have finished it, even if you feel better. Taking all of the medicine will make sure the infection has cleared. You can use acetaminophen or ibuprofen for pain, fever, or discomfort, unless another medicine was prescribed. You can also alternate them, or use both together. They work differently and are a different class of medicines, so taking them together is not an overdose. If you have chronic liver or kidney disease, talk with your healthcare provider before using these medicines. Also talk with your provider if you ve had a stomach ulcer or GI bleeding or are taking blood thinner medicines. Home care Here are some guidelines to help you care for yourself at home: Drink plenty of fluids, unless your healthcare provider told you not to. Fluids will prevent dehydration and flush out your bladder. Use good personal hygiene. Wipe from front to back after using the toilet, and clean your penis regularly. If you aren t circumcised, retract the foreskin when cleaning. Urinate more frequently, and don t try to hold it in for long periods of time, if possible. Wear loose-fitting clothes and cotton underwear. Avoid tight-fitting pants. This helps keep you clean and dry. Change your diet to prevent constipation. This means eating more fresh foods and more fiber, and less junk and fatty foods. Avoid sex until your symptoms are gone. Avoid caffeine, alcohol, and spicy foods. These can irritate the bladder. Follow-up care Follow up with your healthcare provider, or as advised if all symptoms have not cleared up within 5days. It is important to keep your follow-up appointment. You can talk with your provider to see ifyou need more tests of the urinary tract. This is especially important if you have infections that keep coming back. If a culture was done, you will be told if your treatment needs to be changed. If directed, you cancall to find out the results. If X-rays were taken, you will be told of any findings that may affect your care. Call 911 Call 911 if any of these occur: Trouble breathing Difficulty waking up Feeling confused Fainting or loss of consciousness Rapid heart rate When to seek medical advice Call your healthcare provider right away if any of these occur: Fever of 100.4 F (38 C) or higher, or as directed by your healthcare provider Your symptoms don t improve after 2 days of treatment Back or abdominal pain that gets worse Repeated vomiting, or you aren t able to keep medicine down Weakness or dizziness [id number] [employer]. [address] [place] [address]. All rights reserved. This information is not intended as a substitute for professional medical care. Always follow yourhealthcare professional's instructions. Follow Up Care 08/31/2023 14:39:14 With:Your current garden consultant Address:Unknown When:2-4 days Comments:Schedule appointment as soon as possibleReturn to ED if symptoms worsenIncrease fluids follow-up for recheck and follow-up testing as soon as possible return for intractable vomiting fever uncontrollable shaking chills With:PROSPER NOWAKR Address: [address] [facility] [place] [phone] Business (1) When:2-4 days Comments:Schedule appointment as soon as possibleReturn to ED if symptoms worsenReturn for intractable vomiting uncontrollable shaking chills or feverFollow-up for urine culture results and recheckFollow-up for prostate testing [facility] 07-18-2024 Emergency department Discharge summary Discharge Instructions Thank you for allowing [facility] to assist you with your healthcare needs. The following is importantdischarge information regarding your hospital visit. Diagnosis from Today's Visit Bladder infection Hematuria What to Do Next Instructions from Your Care Team No qualifying data available. Post Acute Orders No qualifying data available. You Need to Schedule the Following Appointments Follow Up with Your current garden consultant When:Within 2-4 days Additional Information: Schedule appointment as soon as possible Return to ED if symptoms worsen Increase fluids follow-up for recheck and follow-up testing as soon as possible return for intractable vomiting fever uncontrollable shaking chills Follow Up with PROSPER MANJARREZ When:Within 2-4 days Where:[address] [facility] [place] [address] [phone] Business (1) Additional Information: Schedule appointment as soon as possible Return to ED if symptoms worsen Return for intractable vomiting uncontrollable shaking chills or fever Follow-up for urine culture results and recheck Follow-up for prostate testing Allergies penicillin Swelling Medications Please ask your primary doctor or pharmacist before taking any other medication not listed, including over the counter drugs, herbal medications, vitamins and or supplements as they may interact withyour home medications. What How Much When Why Instructions Last Dose New cephalexin (cephalexin 500 mg oral capsule) 1 cap by mouth Every 6 hours Duration: 7 Days Printed Prescription Unchanged amiodarone (amiodarone 200 mg oral tablet) 1 tab(s) by mouth Once a day Unchanged clindamycin topical (clindamycin 1% topical lotion) 1 application Topical Two (2) times a day Unchanged fluticasone/ umeclidinium/ vilanterol (Trelegy Ellipta 100 mcg-62.5 mcg-25 mcg/ inh inhalation powder) 1 puff(s) by inhalation Once a day COPD - Chronic obstructive pulmonary disease at the same time every day. Following administration, rinse mouth with water after use (do not swallow). Unchanged ketoconazole topical (ketoconazole 2% topical shampoo) USE A WASH TO GROIN FOLDS ONCE DAILY FOR TWO WEEKS THEN DECREASE TO 2-3X WEEKLY FOR MAINTENANCE Unchanged metoprolol (Lopressor 25mg--USE metoprolol tartrate 25 mg oral tablet) Two (2) times a day Unchanged Misc Medication (PURELAX 17 GRAM/ DOSE POWDER (GRAM)) 1cup powder by mouth Once a day as needed for Constipation Unchanged olodaterol-tiotropium (Stiolto Respimat 60 ACT 2.5 mcg-2.5 mcg/ inh inhalation aerosol) 2 puff(s) by inhalation Every 24 hours COPD without exacerbation replace order for Trelegy due to insurance. Unchanged oxyCODONE (oxyCODONE 5 mg oral tablet ( IMMEDIATE release )) 1 tab(s) by mouth Every 8 hours as needed for as needed for pain Renal cancer Unchanged senna (senna (sennosides) 8.6 mg oral tablet) 2 tab(s) by mouth Two (2) times a day as needed for as needed for constipation Unchanged warfarin (warfarin 5 mg oral tablet) 0.5 tab(s) by mouth Once a day as directed Please take this list to your next doctor s visit. Bring all medications you take, including over the counter medications, herbals and other supplements with you to your doctor s visit. Patients and families are reminded to discard old lists and to update any records with all medication providers or retail pharmacies. Education [employer] Blood in the Urine Blood in the urine (hematuria) has many possible causes. If it occurs after an injury (such as a car accident or fall), it is most often a sign of bruising to the kidney or bladder. Common causes of blood in the urine include urinary tract infections, kidney stones, inflammation, tumors, or certainother diseases of the kidney or bladder. Menstruation can cause blood to appear in the urine sample, although it is not coming from the urinary tract. If only a trace amount of blood is present, it will show up on the urine test, even though the urine may be yellow and not pink or red. This may occur with any of the above conditions, as well as heavy exercise or high fever. In this case, your doctor may want to repeat the urine test on another day. This will show if the blood is still present. If it is, then other tests can be done to find out t he cause. Home care Follow these home care guidelines: If your urine does not appear bloody (pink, brown or red) then you do not need to restrict your activity in any way. If you can see blood in your urine, rest and avoid heavy exertion until your next exam. Do not use aspirin, blood thinners, or anti-platelet or anti- inflammatory medicines. These include ibuprofen and naproxen. These thin the blood and may increase bleeding. Follow-up care Follow up with your healthcare provider, or as advised. If you were injured and had blood in your urine, you should have a repeat urine test in 1 to 2 days. Contact your doctor for this test. A radiologist will review any X-rays that were taken. You will be told of any new findings that mayaffect your care. When to seek medical advice Call your healthcare provider right away if any of these occur: Bright red blood or blood clots in the urine (if you did not have this before) Weakness, dizziness or fainting New groin, abdominal, or back pain Fever of 100.4 F (38 C) or higher, or as directed by your healthcare provider Repeated vomiting Bleeding from the nose or gums or easy bruising [id number] [employer]. [address] [place], [place] [id number]. All rights reserved. This information is not intended as a substitute for professional medical care. Always follow yourhealthcare professional's instructions. Bladder Infection, Male (Adult) You have a bladder infection. Urine is normally free of bacteria. But bacteria can get into the urinary tract from the skin around the rectum or it may travel in the blood from elsewhere in the body. This is called a urinary tract infection (UTI). An infection can occur anywhere in the urinary tract. It could be in a kidney (pyelonephritis)or in the bladder (cystitis) and urethra (urethritis). The urethra is the tube that drains the urine from the bladder through the tip of the penis. The most common place for a UTI is in the bladder. This is called a bladder infection. Most bladderinfections are easily treated. They are not serious unless the infection spreads up to the kidney. The terms bladder infection, UTI, and cystitis are often used to describe the same thing, but they aren t always the same. Cystitis is an inflammation of the bladder. The most common cause of cystitis is an infection. Keep in mind: Infections in the urine are called UTIs. Cystitis is usually caused by a UTI. Not all UTIs and cases of cystitis are bladder infections. Bladder infections are the most common type of cystitis. Symptoms of a bladder infection The infection causes inflammation in the urethra and bladder. This inflammation causes many of the symptoms. The most common symptoms of a bladder infection are: Pain or burning when urinating Having to go more often than usual Feeling like you need to go right away Only a small amount comes out Blood in urine Discomfort in your belly (abdomen), usually in the lower abdomen, above the pubic bone Cloudy, strong, or bad smelling urine Unable to urinate (retention) Urinary incontinence Fever Loss of appetite Older adults may also feel confused. Causes of a bladder infection Bladder infections are not contagious. You can't get one from someone else, from a toilet seat, or from sharing a bath. The most common cause of bladder infections is bacteria from the bowels. The bacteria get onto the skin around the opening of the urethra. From there they can get into the urine and travel up to the bladder. This causes inflammation and an infection. This usually happens because of: An enlarged prostate Poor cleaning of the genitals Procedures that put a tube in your bladder, like a Ochoa catheter Bowel incontinence Older age Not emptying your bladder (The urine stays there, giving the bacteria a chance to grow.) Dehydration (This allows urine to stay in the bladder longer.) Constipation (This can cause the bowels to push on the bladder or urethra and keep the bladder fromemptying.) Treatment Bladder infections are treated with antibiotics. They usually clear up quickly without complications. Treatment helps prevent a more serious kidney infection. Medicines Medicines can help in the treatment of a bladder infection: You may have been given phenazopyridine to ease burning when you urinate. It will cause your urine to be bright orange. It can stain clothing. You may have been prescribed antibiotics. Take this medicine until you have finished it, even if you feel better. Taking all of the medicine will make sure the infection has cleared. You can use acetaminophen or ibuprofen for pain, fever, or discomfort, unless another medicine was prescribed. You can also alternate them, or use both together. They work differently and are a different class of medicines, so taking them together is not an overdose. If you have chronic liver or kidney disease, talk with your healthcare provider before using these medicines. Also talk with your provider if you ve had a stomach ulcer or GI bleeding or are taking blood thinner medicines. Home care Here are some guidelines to help you care for yourself at home: Drink plenty of fluids, unless your healthcare provider told you not to. Fluids will prevent dehydration and flush out your bladder. Use good personal hygiene. Wipe from front to back after using the toilet, and clean your penis regularly. If you aren t circumcised, retract the foreskin when cleaning. Urinate more frequently, and don t try to hold it in for long periods of time, if possible. Wear loose-fitting clothes and cotton underwear. Avoid tight-fitting pants. This helps keep you clean and dry. Change your diet to prevent constipation. This means eating more fresh foods and more fiber, and less junk and fatty foods. Avoid sex until your symptoms are gone. Avoid caffeine, alcohol, and spicy foods. These can irritate the bladder. Follow-up care Follow up with your healthcare provider, or as advised if all symptoms have not cleared up within 5days. It is important to keep your follow-up appointment. You can talk with your provider to see ifyou need more tests of the urinary tract. This is especially important if you have infections that keep coming back. If a culture was done, you will be told if your treatment needs to be changed. If directed, you cancall to find out the results. If X-rays were taken, you will be told of any findings that may affect your care. Call 911 Call 911 if any of these occur: Trouble breathing Difficulty waking up Feeling confused Fainting or loss of consciousness Rapid heart rate When to seek medical advice Call your healthcare provider right away if any of these occur: Fever of 100.4 F (38 C) or higher, or as directed by your healthcare provider Your symptoms don t improve after 2 days of treatment Back or abdominal pain that gets worse Repeated vomiting, or you aren t able to keep medicine down Weakness or dizziness [id number] [employer]. [address] [place] [address]. All rights reserved. This information is not intended as a substitute for professional medical care. Always follow yourhealthcare professional's instructions. Additional Information VACCINATE! IT SAVES LIVES! Members of the community who have not yet received the COVID-19 vaccine and would like to receive it can visit one of [facility] vaccine clinics. There are many vaccine clinic locations within the [facility]. For locations and available times, please visit [email or web address] It is important to note that some COVID mobile vaccine clinics are held outdoors and may be canceled in rainy or stormy conditions. To learn more about pediatric vaccinations (ages 5-11), we invite you to visit the [facility] webpage. [email or web address]/[email or web address] [email or web address] learn more about the COVID-19 vaccine, we invite you to visit the CDC website for a list of frequently asked questions. https://www.cdc.gov/coronavirus/2019-ncov/vaccines/faq.html [facility] Patient Portal Access Instructions: Stay connected with your healthcare team and access your personal medical information anytime with the [facility] Patient Portal. If you would like a full copy of your medical records please contact the [facility] Medical Records Department Monday through Monday between 8a.m. and 4:30p.m. Please follow the directions below to access the portal: 1.Access the email account you provided upon registration to the [facility].2.Look for an invitation email from [facility].3.Open the email and access the invitation link: Accept Invitation to [facility]4.Fill in the required delaney to create your account. Sign into [email or web address] with your username and password that you created in the above steps to stay up to date. You can then view a summary of results, a summary of your visits, and the ability to download your summaries to your computer or send the information securely to a physician. Remember that your healthcare information is confidential, so carefully consider who you will allow to register on the [facility] Patient Portal for access to your information. You can also access the [facility] Patient Portal on the [employer]. Simply click on "Health Records" under "HealthData" and then click on the [employer] logo. HOW TO SAFELY DISPOSE OF PRESCRIPTION MEDICATIONS Please use one of the following methods to safely dispose of your unused medications. 1.Use a drug disposal kit: the drug disposal pouch allows you to safely discard your old and unuseddrugs. Ask your nurse to give you one when you are discharged.2.Visit a local take-back location: Many local pharmacies and police departments have programs that collect old and unwanted prescriptiondrugs. Call your local pharmacy or go to http://bit.Oddslife/5F7Ow9v to find one close to you.3.Make use of household items: Use cat litter or old coffee grounds to dispose medications if other options arenot available. Mix your drugs with these household products, seal them in an airtight container andthrow it into the garbage. Call [facility]: [phone] to be sure your drugs can be disposed of in this way. Some medicines may require a different approach.4.Never flush your medications down the toilet. IF YOU HAVE BEEN PRESCRIBED AN OPIOIDS FOR PAIN If you have been prescribed an opioid (such as hydrocodone, oxycodone or morphine), it is critical to understand the possible side effects and risks of opioid pain medications. Even when taken as directed, opioids can have several side effects including: Tolerance, meaning you might need to take more of a medication for the same pain relief. Nausea, vomiting and/or constipation. Sleepiness, dizziness, dry mouth, confusion, depression or itching. Physical dependence, meaning you have withdrawal symptoms when a medication is stopped ? this can develop within a few days. KNOW YOUR RESPONSIBILITIES It is important to know exactly how much and how often to take the opioid pain medications you are prescribed. Never take opioids in higher amounts or more often than prescribed. Do not combine opioids with alcohol or other drugs that cause drowsiness, such as benzodiazepines, also known as benzos,including diazepam and alprazolam, muscle relaxants or sleep aids. Never sell or share prescriptionopioids. This is illegal. Store opioids in a secure place and out of reach of others (including children, family, friends and visitors). The last page(s) of this document has been signed and retained as a CHART COPY Signatures Patient Education Materials Hematuria Bladder Infection, Male (Adult) Medication Leaflets My discharge plan and instructions have been reviewed and explained to me and IJESSICA DAVID D understand my current condition and have read and understand these discharge instructions. I have received a written copy of the plan/instructions. If I have questions, I am aware that I should contact my doctor. Patient/Record Keeper Signature: Date/Time: Relationship to Patient: Witness Name/Signature: Date/Time: [facility]07-11-2024 Summary of episode note LYNDSAY LOPEZ :1980 Visit Date:08/24/2023 Your Visit Summary Your Diagnosis Metastatic renal cell carcinoma. S/P Left cytoreductive nephrectomy 08/14/20. Final path - ccRCC withsarcomatoid features. Tests Performed .Auto Differential .Estimated Glomerular Filtration Rate .Neutro Absolute CBC CMP LDH Your Care Team Attending Physician - BHAVIK TRIANA MD Primary Care Physician - PROSPER MANJARREZ DO Vitals Temperature (Oral) 97.3 F (36.3 C) Heart Rate 68 Respiratory Rate 18 Blood Pressure 161/83 SpO2 94% Height 66.93 in (170.0 cm) What to do next Instructions From Your Doctor You have received the following therapy today: Chemotherapy/Immunotherapy Call your physician if any of the following problems occur: Nausea/Vomiting Mouth Sores Diarrhea Fever Prolonged bleeding or easy bruising Pain or discomfort at the injection site Scheduled Follow-Up Appointments Appointment Type When With Where Contact Information StatusPALL OV Follow Up 09/14/2023 01:30 PM EDT LIAN FUNG MD Palliative Care Confirmed HEM ONC OV Follow Up w/Active Treatment 10/19/2023 01:30 PM EDT BHAVIK TRIANA MD Hematology and Oncology Confirmed [facility] Wellness Annual 11/30/2023 03:30 PM EDT PROSPER MANJARREZ DO [address] [id number] Confirmed Medications What How Much When Why Instructions Unchanged amiodarone (amiodarone 200 mg oral tablet) 1 tab(s) by mouth Once a day Unchanged clindamycin topical (clindamycin 1% topical lotion) 1 application Topical Two (2) times a day Unchanged fluticasone/ umeclidinium/ vilanterol (Trelegy Ellipta 100 mcg-62.5 mcg-25 mcg/ inh inhalation powder) 1 puff(s) by inhalation Once a day COPD - Chronic obstructive pulmonary disease at the same time every day. Following administration, rinse mouth with water after use (do not swallow). Unchanged ketoconazole topical (ketoconazole 2% topical shampoo) USE A WASH TO GROIN FOLDS ONCE DAILY FOR TWO WEEKS THEN DECREASE TO 2-3X WEEKLY FOR MAINTENANCE Unchanged metoprolol (Lopressor 25mg--USE metoprolol tartrate 25 mg oral tablet) Two (2) times a day Unchanged Misc Medication (PURELAX 17 GRAM/ DOSE POWDER (GRAM)) 1cup powder by mouth Once a day as needed for Constipation Unchanged olodaterol-tiotropium (Stiolto Respimat 60 ACT 2.5 mcg-2.5 mcg/ inh inhalation aerosol) 2 puff(s) by inhalation Every 24 hours COPD without exacerbation replace order for Trelegy due to insurance. Unchanged oxyCODONE (oxyCODONE 5 mg oral tablet ( IMMEDIATE release )) 1 tab(s) by mouth Every 8 hours as needed for as needed for pain Renal cancer Unchanged senna (senna (sennosides) 8.6 mg oral tablet) 2 tab(s) by mouth Two (2) times a day as needed for as needed for constipation Unchanged warfarin (warfarin 5 mg oral tablet) 0.5 tab(s) by mouth Once a day as directed Test Results .Auto Differential (08/24/2023) Neutrophil % - 73.1 % Lymphocyte % - 12.0 % Monocyte % - 10.1 % Eosinophil % - 3.9 % Basophil % - 0.9 % Lymphocyte, Absolute - 0.7 10^3/mcL Monocyte, Absolute - 0.6 10^3/mcL Eosinophil, Absolute - 0.2 10^3/mcL Basophil, Absolute - 0.1 10^3/mcL .Estimated Glomerular Filtration Rate (08/24/2023) GFR Non- - >60 ml/min/1.73sqm GFR - >60 ml/min/1.73sqm .Neutro Absolute (08/24/2023) Neutrophil, Absolute - 4.4 10^3/mcL CBC (08/24/2023) WBC - 6.0 10^3/mcL RBC - 4.43 10^6/mcL Hgb - 14.0 G/dL Hct - 42.2 % MCV - 95.3 fL MCH - 31.6 pg MCHC - 33.2 G/dL RDW - 16.6 % Platelet - 221 10^3/mcL MPV - 7.3 fL CMP (08/24/2023) Glucose Level - 139 mg/dL Sodium Level - 140 mEq/L Potassium Level - 4.4 mEq/L Chloride - 106 mEq/LCO2 - 28 mEq/L Electrolyte Balance - 6.0 mEq/L BUN - 21.0 mg/dL Creatinine Lvl (s) - 1.23 mg/dL BUN/Creatinine Ratio - 17.1 ratio Calcium Lvl - 8.5 mg/dL Total Protein - 6.6 G/dL Albumin Level - 3.3 G/dL Globulin - 3.3 G/dL A/G Ratio - 1.0 ratio Bili Total - 1.30 mg/dL Alk Phos - 180 U/L AST/SGOT - 21 U/L ALT/SGPT - 16 U/L LDH (08/24/2023) LDH - 173 U/L Allergies penicillin Swelling Additional Information VACCINATE! IT SAVES LIVES! Members of the community who have not yet received the COVID-19 vaccine and would like to receive it can visit one of [facility] vaccine clinics. There are many vaccine clinic locations within the [facility]. For locations and available times, please visit [email or web address] It is important to note that some COVID mobile vaccine clinics are held outdoors and may be canceled in rainy or stormy conditions. To learn more about pediatric vaccinations (ages 5-11), we invite you to visit the [facility] webpage. [email or web address]/[email or web address] learn more about the COVID-19 vaccine, we invite you to visit the CDC website for a list of frequently asked questions. https://www.cdc.gov/coronavirus/2019-ncov/vaccines/faq.html [facility] Patient Portal Access Instructions: Stay connected with your healthcare team and access your personal medical information anytime with the [facility] Patient Portal.If you would like a full copy of your medical records, please contact the [facility] Medical Records Department, Monday through Monday between 8a.m. and 4:30p.m. Please follow the directions below to access the portal: 1.Access the email account you provided upon registration to the [facility].2.Look for an invitation email from [facility].3.Open the email and access the invitation link: Accept Invitation to [facility]4.Fill in the required delaney to create your account. Sign into [email or web address] with your username and password that you created in the above steps to stay up to date. You can then view a summary of results, a summary of your visits, and the ability to download your summaries to your computer or send the information securely to a physician. Remember that your healthcare information is confidential, so carefully consider who you will allow to register on the [facility] Patient Portal for access to your information. You can also access the [facility] Patient Portal on the [employer] julia. Simply click on "Health Records" under "HealthData" and then click on the [employer] logo. HOW TO SAFELY DISPOSE OF PRESCRIPTION MEDICATIONS Please use one of the following methods to safely dispose of your unused medications. 1.Use a drug disposal kit: the drug disposal pouch allows you to safely discard your old and unuseddrugs. Ask your nurse to give you one when you are discharged.2.Visit a local take-back location: Many local pharmacies and police departments have programs that collect old and unwanted prescriptiondrugs. Call your local pharmacy or go to http://bit.ly/1V2Pi4n to find one close to you.3.Make use of household items: Use cat litter or old coffee grounds to dispose medications if other options arenot available. Mix your drugs with these household products, seal them in an airtight container andthrow it into the garbage. Call [facility]: [phone] to be sure your drugs can be disposed of in this way. Some medicines may require a different approach.4.Never flush your medications down the toilet. IF YOU HAVE BEEN PRESCRIBED AN OPIOID FOR PAIN If you have been prescribed an opioid (such as hydrocodone, oxycodone or morphine), it is critical to understand the possible side effects and risks of opioid pain medications. Even when taken as directed, opioids can have several side effects including: Tolerance, meaning you might need to take more of a medication for the same pain relief. Nausea, vomiting and/or constipation. Sleepiness, dizziness, dry mouth, confusion, depression or itching. Physical dependence, meaning you have withdrawal symptoms when a medication is stopped, can develop within a few days. KNOW YOUR RESPONSIBILITIES It is important to know exactly how much and how often to take the opioid pain medications you are prescribed. Never take opioids in higher amounts or more often than prescribed. Do not combine opioids with alcohol or other drugs that cause drowsiness, such as benzodiazepines, also known as benzos, including diazepam and alprazolam, muscle relaxants or sleep aids. Never sell or share prescription opioids. This is illegal. Store opioids in a secure place and out of reach of others (including children, family, friends and visitors). The last page of this document has been signed and retained as a CHART COPY. Signatures Patient Education Materials Medication Leaflets My discharge plan and instructions have been reviewed and explained to me and IJESSICA DAVID D understand my current condition and have read and understand these discharge instructions. I have received a written copy of the plan/instructions. If I have questions, I am aware that I should contact my doctor. Patient/Record Keeper Signature: Date/Time: Relationship to Patient: Witness Name/Signature: [id number] Note ORIGINAL EXAMINATION: CT OF THE CHEST WITH CONTRAST 07/20/2023 3:39 pm TECHNIQUE: CT of the chest was performed with the administration of intravenous contrast. Multiplanar reformatted images are provided for review. Automated exposure control, iterative reconstruction, and/or weight based adjustment of the mA/kV was utilized to reduce the radiation dose to as low as reasonably achievable. COMPARISON: August 01, 2022 HISTORY: ORDERING SYSTEM PROVIDED HISTORY: Reason for Exam: monitor for progression Hx lt kidney ca, monitor for progression. No current complaints. FINDINGS: Recist 1.1: POTENTIAL TARGET TUMOR LESIONS (maximum 5 lesions, maximum 2 per organ, longest dimension in axial plane reported, >10 mm, reproducible lesions): None POTENTIAL TARGET LYMPH NODES (>15 mm short axis, maximum 2): None NONTARGET LESIONS (Definite tumor lesions, lymph nodes 10-14 mm short axis, immeasurable lesions such as lymphangitic involvement, ascites, pleural effusions, etc.): T11 compression fracture, stable. Right lower paratracheal lymph node 1.4 cm, previously 8 mm. Pathologic T11 compression fracture is similar in appearance to the prior exam. Degenerative changes are present elsewhere in the thoracic spine. No other osseous abnormality. Small scattered areas of pulmonary and pleural scarring are noted. No focal consolidation is evident and there are no discrete nodules. No pleural fluid seen. Multiple small mediastinal lymph nodes are evident. There is a single enlarged right lower paratracheal lymph node. No additional adenopathy is visible. No additional contributory finding. IMPRESSION: Right lower paratracheal adenopathy new since the prior exam. Other findings are stable with no other potential new disease seen. Interpreted by: Rachell Dennis MD Preliminary Report By: Rachell Dennis MD Electronically signed By Rachell Dennis MD Dictated Date: 07/20/2023 4:03:57 PM Prelim Date: 07/20/2023 4:27:06 PM Sign Date: 07/20/2023 4:27:06 PM Ordering Provider: [facility]06-06-2024 Note ORIGINAL EXAMINATION: CT OF THE ABDOMEN AND PELVIS WITH CONTRAST 07/20/2023 3:38 pm TECHNIQUE: CT of the abdomen and pelvis was performed with the administration of intravenous contrast. Multiplanar reformatted images are provided for review. Automated exposure control, iterative reconstruction, and/or weight based adjustment of the mA/kV was utilized to reduce the radiation dose to as low as reasonably achievable. COMPARISON: August 04, 2022 HISTORY: ORDERING SYSTEM PROVIDED HISTORY: Reason for Exam: monitor for progression Hx lt kidney ca, monitor for progression. No current complaints. FINDINGS: Recist 1.1: POTENTIAL TARGET TUMOR LESIONS (maximum 5 lesions, maximum 2 per organ, longest dimension in axial plane reported, >10 mm, reproducible lesions): None POTENTIAL TARGET LYMPH NODES (>15 mm short axis, maximum 2): None NONTARGET LESIONS (Definite tumor lesions, lymph nodes 10-14 mm short axis, immeasurable lesions such as lymphangitic involvement, ascites, pleural effusions, etc.): Pathologic T11 fracture, stable. CT chest also performed and reported separately. The T11 vertebra shows central compression deformity, with areas of lucency present. This is compatible with a pathologic compression fracture, and the finding is similar to the previous exam. No other osseous abnormality identified. The exam is difficult due to prominent streak artifact from patient body habitus. Liver, spleen, adrenal glands and pancreas are grossly normal. There is no definite right renal abnormality. Patient is status post left nephrectomy, and there is no unusual soft tissue identified at the nephrectomy bed. There is a posterolateral left flank body wall hernia containing fat and a portion of the colon, similar in appearance to the previous study. No adenopathy, free air or free fluid is visible. The urinary bladder is grossly normal. No GI tract abnormality is identified. The patient's pannus shows infiltrative increased density within the fat with overlying skin thickening. These findings are new since the previous exam. No additional contributory abnormality is seen. IMPRESSION: 1. Status post left nephrectomy with no evidence for residual or recurrent disease. 2. Stable T11 pathologic fracture. 3. No other evidence for metastatic disease. 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 S/P Left cytoreductive nephrectomy 08/14/20. Final path - ccRCC withsarcomatoid features. Tests Performed .Auto Differential .Estimated Glomerular Filtration Rate .Neutro Absolute CBC CMP Cortisol Level Free T3 Free T4 LDH TSH Your Care Team Attending Physician - BHAVIK TRIANA MD Primary Care Physician - PROSPER MANJARREZ DO Vitals Temperature (Oral) 36.5 C Heart Rate 66 Respiratory Rate 18 Blood Pressure 176/87 Height 172.7 cm Weight 177.1 kg BMI 59.38 What to do next Instructions From Your Doctor You have received the following therapy today: Immunotherapy Call your physician if any of the following problems occur: Nausea/Vomiting Mouth Sores Diarrhea Fever Prolonged bleeding or easy bruising Pain or discomfort at the injection site Scheduled Follow-Up Appointments Appointment Type When With Where Contact InformationCT Chest w/o Contrast 03/09/2023 10:30 AM [facility] [phone] Abdomen/Pelvis w/Oral Contrast Only 03/09/2023 11:00 AM [facility] [phone] PALL OV Follow Up 03/16/2023 10:00 AM EST LIAN FUNG MD Palliative Care HEM ONC OV Follow Up w/Active Treatment 03/16/2023 10:30 AM EST BHAVIK TRIANA MD Hematology and Oncology Medications What How Much When Why Instructions Changed metoprolol (Lopressor 25mg--USE metoprolol tartrate 25 mg oral tablet) Two (2) times a day Unchanged amiodarone (amiodarone 200 mg oral tablet) 1 tab(s) by mouth Once a day Unchanged oxyCODONE (oxyCODONE 5 mg oral tablet ( IMMEDIATE release )) 1 tab(s) by mouth Every 8 hours as needed for as needed for pain Renal cancer Unchanged polyethylene glycol 3350 (Miralax 255 gm bottle) by mouth Once a day as needed for Congestion Unchanged senna (senna (sennosides) 8.6 mg oral tablet) 2 tab(s) by mouth Two (2) times a day as needed for as needed for constipation Unchanged triamcinolone topical (triamcinolone 0.1% topical cream) 1 application Topical Two (2) times a day apply a thin film to affected area Unchanged warfarin (warfarin 5 mg oral tablet) 0.5 tab(s) by mouth Once a day as directed Test Results .Auto Differential (02/16/2023) Neutrophil % - 76.3 % Lymphocyte % - 12.6 % Monocyte % - 6.9 % Eosinophil % - 3.2 % Basophil % - 1.0 % Lymphocyte, Absolute - 1.1 10^3/mcL Monocyte, Absolute - 0.6 10^3/mcL Eosinophil, Absolute - 0.310^3/mcL Basophil, Absolute - 0.1 10^3/mcL .Estimated Glomerular Filtration Rate (02/16/2023) GFR Non- - 56 ml/min/1.73sqm GFR - >60 ml/min/1.73sqm .Neutro Absolute (02/16/2023) Neutrophil, Absolute - 6.4 10^3/mcL CBC (02/16/2023) WBC - 8.4 10^3/mcL RBC - 4.74 10^6/mcL Hgb - 13.6 G/dL Hct - 42.3 % MCV - 89.3 fL MCH - 28.7 pg MCHC - 32.2 G/dL RDW - 21.0 % Platelet - 237 10^3/mcL MPV - 7.8 fL CMP (02/16/2023) Glucose Level - 218 mg/dL Sodium Level - 139 mEq/L Potassium Level - 3.6 mEq/L Chloride - 104 mEq/LCO2 - 32 mEq/L Electrolyte Balance - 3.0 mEq/L BUN - 20.0 mg/dL Creatinine Lvl (s) - 1.38 mg/dL BUN/Creatinine Ratio - 14.5 ratio Calcium Lvl - 8.6 mg/dL Total Protein - 6.8 G/dL Albumin Level - 3.1 G/dL Globulin - 3.7 G/dL A/G Ratio - 0.8 ratio Bili Total - 0.70 mg/dL Alk Phos - 137 U/L AST/SGOT - 17 U/L ALT/SGPT - 16 U/L Cortisol Level (02/16/2023) Cortisol Level - 16.8 mcg/dL Free T3 (02/16/2023) Free T3 - 3.07 pg/mL Free T4 (02/16/2023) Free T4 - 1.17 ng/dL LDH (02/16/2023) LDH - 189 U/L TSH (02/16/2023) TSH - 6.717 mIU/mL Allergies penicillin (Swelling) Additional Information VACCINATE! IT SAVES LIVES! Members of the community who have not yet received the COVID-19 vaccine and would like to receive it can visit one of [facility] vaccine clinics. There are many vaccine clinic locations within the [facility]. For locations and available times, please visit [email or web address]/. It is important to note that some COVID mobile vaccine clinics are held outdoors and may be canceled in rainy or stormy conditions. To learn more about pediatric vaccinations (ages 5-11), we invite you to visit the [facility] webpage. https://www.akronCrisps.org/pages/[email or web address]-Vkfxxprqxd-[email or web address] stions.htmlTo learn more about the COVID-19 vaccine, we invite you to visit the CDC website for a list of frequently asked questions. https://www.cdc.gov/coronavirus/2019-ncov/vaccines/faq.html [facility] Patient Portal Access Instructions: Stay connected with your healthcare team and access your personal medical information anytime with the [facility] Patient Portal.If you would like a full copy of your medical records, please contact the [facility] Medical Records Department, Monday through Monday between 8a.m. and 4:30p.m. Please follow the directions below to access the portal: 1.Access the email account you provided upon registration to the hospital.2.Look for an invitation email from [facility].3.Open the email and access the invitation link: Accept Invitation to [facility]4.Fill in the required delaney to create your account. Sign into [email or web address] with your username and password that you created in the above steps to stay up to date. You can then view a summary of results, a summary of your visits, and the ability to download your summaries to your computer or send the information securely to a physician. Remember that your healthcare information is confidential, so carefully consider who you will allow to register on the [facility] Patient Portal for access to your information. You can also access the [facility] Patient Portal on the [employer] julia. Simply click on "Health Records" under "HealthData" and then click on the Diogo logo. HOW TO SAFELY DISPOSE OF PRESCRIPTION MEDICATIONS Please use one of the following methods to safely dispose of your unused medications. 1.Use a drug disposal kit: the drug disposal pouch allows you to safely discard your old and unuseddrugs. Ask your nurse to give you one when you are discharged.2.Visit a local take-back location: Many local pharmacies and police departments have programs that collect old and unwanted prescriptiondrugs. Call your local pharmacy or go to http://Huan Xiong.Oddslife/8W0Ej9y to find one close to you.3.Make use of household items: Use cat litter or old coffee grounds to dispose medications if other options arenot available. Mix your drugs with these household products, seal them in an airtight container andthrow it into the garbage. Call [facility]: [phone] to be sure your drugs can be disposed of in this way. Some medicines may require a different approach.4.Never flush your medications down the toilet. IF YOU HAVE BEEN PRESCRIBED AN OPIOID FOR PAIN If you have been prescribed an opioid (such as hydrocodone, oxycodone or morphine), it is critical to understand the possible side effects and risks of opioid pain medications. Even when taken as directed, opioids can have several side effects including: Tolerance, meaning you might need to take more of a medication for the same pain relief. Nausea, vomiting and/or constipation. Sleepiness, dizziness, dry mouth, confusion, depression or itching. Physical dependence, meaning you have withdrawal symptoms when a medication is stopped, can develop within a few days. KNOW YOUR RESPONSIBILITIES It is important to know exactly how much and how often to take the opioid pain medications you are prescribed. Never take opioids in higher amounts or more often than prescribed. Do not combine opioids with alcohol or other drugs that cause drowsiness, such as benzodiazepines, also known as benzos, including diazepam and alprazolam, muscle relaxants or sleep aids. Never sell or share prescription opioids. This is illegal. Store opioids in a secure place and out of reach of others (including children, family, friends and visitors). The last page of this document has been signed and retained as a CHART COPY. Signatures Patient Education Materials Medication Leaflets My discharge plan and instructions have been reviewed and explained to me and IJESSICA DAVID D understand my current condition and have read and understand these discharge instructions. I have received a written copy of the plan/instructions. If I have questions, I am aware that I should contact my doctor. Patient/Record Keeper Signature: Date/Time: Relationship to Patient: Witness Name/Signature: [facility]Time[id number] Discharge [facility] Patient Education 01/19/2023 11:29:35 Managing Chemotherapy Side Effects, Adult Managing Chemotherapy Side Effects, Adult Chemotherapy is a treatment that uses medicine to kill cancer cells. Chemotherapy causes side effects. The specific side effects depend on the specific medicines used. Most of the side effects of chemotherapy go away once treatment is finished. Until then, work closely with your health care providers and take an active role in managing your side effects. What are common side effects? Tiredness (fatigue). Increased risk of infections, bruising, or bleeding. Nausea and vomiting. Constipation or diarrhea. Appetite loss. Hair loss. Mouth or throat sores. Tingling, pain, or numbness in the hands and feet. Dry, sensitive, itchy, or sore skin. Confusion, anxiety, or mood swings. Memory changes. How can I help manage my side effects? Medicines Take bofc-wso-vxandwd and prescription medicines only as told by your health care provider. Talk with your health care provider before taking vitamins, supplements, and ruha-ajv-vitvbiq medicines. Some of these can interfere with chemotherapy. Activity Get plenty of rest. Get regular exercise by doing activities such as walking, gentle yoga, or sarah chi. Return to your normal activities as told by your health care provider. Ask your health care provider what activities are safe for you. Eating and drinking Talk to a dietitian about what you should eat and drink during cancer treatment. Drink enough fluid to keep your urine pale yellow. If you have side effects that affect eating, these tips may help: ?Eat smaller meals and snacks often. ?Drink high-nutrition and high-calorie shakes or supplements. ?Eat bland and soft foods that are easy to eat. ?Do not eat foods that are hot, spicy, or hard to swallow. Do not eat raw or undercooked meat, eggs, or seafood. Always wash fresh fruits and vegetables well before eating them. General instructions Learn as much as you can about your condition. Keep all follow-up visits as told by your health care provider. This is important. Use mouth rinse only as told by your health care provider. Protect your skin from the sun by using sunscreen or wearing protective clothing and a hat. If you have sore or itchy skin: ?Wear soft, comfortable clothing. ?Apply creams and ointments to your skin as told by your health care provider. If you lose your hair, wear a wig, hat, or scarf to cover your head. You may want to have someone shave your head as you start to lose hair. Meet with a hair and community service specialist for makeup and skin care tips. How can I prevent infection and bleeding? Chemotherapy may lower your blood counts and put you at risk for infection and bleeding. Here are some ways to help prevent problems. Vaccines Talk to your health care provider about vaccines. You should not get any live vaccines, such as thepolio, MMR, chicken pox, and shingles vaccines. Do not be around people who have had live vaccines. Make sure you get a yearly flu shot. People who will be near you should also get a yearly flu shot. Social activity Stay away from crowded places where you could be exposed to germs. Do not be around people who may be sick. Do not share food or utensils with other people. Wear a mask when outside the home if your blood counts are low. Cleanliness Wash your hands often. Also make sure that other members of your household wash their hands often. Huntley your teeth daily using a soft toothbrush. General tips Take your temperature regularly, especially if you have chills or feel warm. Check with your health care provider before you: ?Travel. ?Have a dental procedure. If you get chemotherapy through an IV or port, check the site every day for signs of infection. Check for redness, swelling, pain, fluid, and warmth. Avoid activities that put you at risk for injury. Use an electric razor to shave instead of a blade. Questions to ask your health care provider What are the most common side effects of my treatment? How will they affect my daily life? What can I do to manage them? When can I expect them to end? What are some possible long-term side effects? What are possible complications? What support services are available? When should I contact my cancer care provider? What number can I call with questions or concerns? Where to find support Cancer affects the entire family. Find out what family support resources are available from your cancer treatment center. For more support, turn to: Your cancer care team. Friends and family. Your methodist community. Other people with cancer. Online support groups. Where to find more information National Cancer [place]: www.cancer.gov [place] [employer]: www.cancer.org Contact a health care provider if: You bleed or bruise often. You have: ?A skin rash or dry or itchy skin. ?A headache or stiff neck. ?Cold or flu symptoms. ?A cough. ?Nausea or vomiting. ?Diarrhea. ?Frequent urination, burning when passing urine, or foul-smelling urine. ?Blood in your urine or stool. You cannot eat because of mouth or throat pain. You are sad, confused, anxious, or depressed. Get help right away if: You have: ?A fever. ?Redness, swelling, pain, fluid, or warmth near an IV site. ?Bleeding that you cannot stop. ?A seizure. You cannot swallow. You have chest pain. You have trouble breathing. Summary Chemotherapy is a treatment that uses medicine to kill cancer cells. Chemotherapy causes side effects. The specific side effects depend on the specific medicines used. Learn as much as you can about your condition. Ask about side effects to watch for and how to treatthem. Seek out support and resources from others. Find out what family support resources are available from your cancer treatment center. Let your health care provider know if you notice any new or unusual symptoms. This information is not intended to replace advice given to you by your health care provider. Make sure you discuss any questions you have with your health care provider. Document Released: 04/26/2018 Document Revised: 04/26/2018 Document Reviewed: 04/26/2018 Perkle Patient Education 2020 [employer]. 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 S/P Left cytoreductive nephrectomy 08/14/20. Final path - ccRCC withsarcomatoid features. 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 Tests Performed .Auto Differential .Estimated Glomerular Filtration Rate .Neutro Absolute CBC CMP Cortisol Level Free T3 Free T4 LDH TSH Your Care Team Attending Physician - BHAVIK TRIANA MD Primary Care Physician - PROSPER MANJARREZ DO Vitals Temperature (Oral) 36.4 C Heart Rate 70 Respiratory Rate 16 Blood Pressure 146/86 Height 172.7 cm Weight 169.7 kg BMI 56.9 What to do next Instructions From Your Doctor You have received the following therapy today: Chemotherapy/Immunotherapy Call your physician if any of the following problems occur: Nausea/Vomiting Mouth Sores Diarrhea Fever Prolonged bleeding or easy bruising Pain or discomfort at the injection site Scheduled Follow-Up Appointments Appointment Type When With Where Contact InformationINF Labwork 02/16/2023 09:15 AM EST Infusion Therapy HEM ONC OV Follow Up w/Active Treatment 02/16/2023 10:00 AM BHAVIK SWAN MD Hematology and Oncology INF Chemo: Infusion 120 min (2 hours) 02/16/2023 10:30 AM EST Infusion Therapy PALL OV Follow Up 03/16/2023 10:00 AM EST LIAN FUNG MD Palliative Care Medications What How Much When Why Instructions Unchanged amiodarone (amiodarone 200 mg oral tablet) 1 tab(s) by mouth Once a day Unchanged metoprolol (Lopressor 25mg--USE metoprolol tartrate 25 mg oral tablet) Unchanged oxyCODONE (oxyCODONE 5 mg oral tablet ( IMMEDIATE release )) 1 tab(s) by mouth Every 8 hours as needed for as needed for pain Renal cancer Unchanged polyethylene glycol 3350 (Miralax 255 gm bottle) by mouth Once a day as needed for Congestion Unchanged senna (senna (sennosides) 8.6 mg oral tablet) 2 tab(s) by mouth Two (2) times a day as needed for as needed for constipation Unchanged triamcinolone topical (triamcinolone 0.1% topical cream) 1 application Topical Two (2) times a day apply a thin film to affected area Unchanged warfarin (warfarin 5 mg oral tablet) 0.5 tab(s) by mouth Once a day as directed Test Results .Auto Differential (01/19/2023) Neutrophil % - 78.5 % Lymphocyte % - 11.0 % Monocyte % - 5.4 % Eosinophil % - 4.2 % Basophil % - 0.9 % Lymphocyte, Absolute - 1.0 10^3/mcL Monocyte, Absolute - 0.5 10^3/mcL Eosinophil, Absolute - 0.410^3/mcL Basophil, Absolute - 0.1 10^3/mcL .Estimated Glomerular Filtration Rate (01/19/2023) GFR Non- - 58 ml/min/1.73sqm GFR - >60 ml/min/1.73sqm .Neutro Absolute (01/19/2023) Neutrophil, Absolute - 7.1 10^3/mcL CBC (01/19/2023) WBC - 9.1 10^3/mcL RBC - 5.14 10^6/mcL Hgb - 14.3 G/dL Hct - 44.4 % MCV - 86.3 fL MCH - 27.8 pg MCHC - 32.3 G/dL RDW - 22.5 % Platelet - 245 10^3/mcL MPV - 7.0 fL CMP (01/19/2023) Glucose Level - 163 mg/dL Sodium Level - 141 mEq/L Potassium Level - 4.2 mEq/L Chloride - 107 mEq/LCO2 - 29 mEq/L Electrolyte Balance - 5.0 mEq/L BUN - 19.0 mg/dL Creatinine Lvl (s) - 1.34 mg/dL BUN/Creatinine Ratio - 14.2 ratio Calcium Lvl - 8.7 mg/dL Total Protein - 7.0 G/dL Albumin Level - 3.4 G/dL Globulin - 3.6 G/dL A/G Ratio - 0.9 ratio Bili Total - 0.60 mg/dL Alk Phos - 126 U/L AST/SGOT - 19 U/L ALT/SGPT - 18 U/L Cortisol Level (01/19/2023) Cortisol Level - 22.7 mcg/dL Free T3 (01/19/2023) Free T3 - 3.72 pg/mL Free T4 (01/19/2023) Free T4 - 1.07 ng/dL LDH (01/19/2023) LDH - 220 U/L TSH (01/19/2023) TSH - 7.932 mIU/mL Allergies penicillin (Swelling) Education Materials Managing Chemotherapy Side Effects, Adult Chemotherapy is a treatment that uses medicine to kill cancer cells. Chemotherapy causes side effects. The specific side effects depend on the specific medicines used. Most of the side effects of chemotherapy go away once treatment is finished. Until then, work closely with your health care providers and take an active role in managing your side effects. What are common side effects? Tiredness (fatigue). Increased risk of infections, bruising, or bleeding. Nausea and vomiting. Constipation or diarrhea. Appetite loss. Hair loss. Mouth or throat sores. Tingling, pain, or numbness in the hands and feet. Dry, sensitive, itchy, or sore skin. Confusion, anxiety, or mood swings. Memory changes. How can I help manage my side effects? Medicines Take geso-zsj-jjdsexh and prescription medicines only as told by your health care provider. Talk with your health care provider before taking vitamins, supplements, and mero-eog-gwmbwwd medicines. Some of these can interfere with chemotherapy. Activity Get plenty of rest. Get regular exercise by doing activities such as walking, gentle yoga, or sarah chi. Return to your normal activities as told by your health care provider. Ask your health care provider what activities are safe for you. Eating and drinking Talk to a dietitian about what you should eat and drink during cancer treatment. Drink enough fluid to keep your urine pale yellow. If you have side effects that affect eating, these tips may help: ? Eat smaller meals and snacks often. ? Drink high-nutrition and high-calorie shakes or supplements. ? Eat bland and soft foods that are easy to eat. ? Do not eat foods that are hot, spicy, or hard to swallow. Do not eat raw or undercooked meat, eggs, or seafood. Always wash fresh fruits and vegetables well before eating them. General instructions Learn as much as you can about your condition. Keep all follow-up visits as told by your health care provider. This is important. Use mouth rinse only as told by your health care provider. Protect your skin from the sun by using sunscreen or wearing protective clothing and a hat. If you have sore or itchy skin: ? Wear soft, comfortable clothing. ? Apply creams and ointments to your skin as told by your health care provider. If you lose your hair, wear a wig, hat, or scarf to cover your head. You may want to have someone shave your head as you start to lose hair. Meet with a hair and community service specialist for makeup and skin care tips. How can I prevent infection and bleeding? Chemotherapy may lower your blood counts and put you at risk for infection and bleeding. Here are some ways to help prevent problems. Vaccines Talk to your health care provider about vaccines. You should not get any live vaccines, such as thepolio, MMR, chicken pox, and shingles vaccines. Do not be around people who have had live vaccines. Make sure you get a yearly flu shot. People who will be near you should also get a yearly flu shot. Social activity Stay away from crowded places where you could be exposed to germs. Do not be around people who may be sick. Do not share food or utensils with other people. Wear a mask when outside the home if your blood counts are low. Cleanliness Wash your hands often. Also make sure that other members of your household wash their hands often. Huntley your teeth daily using a soft toothbrush. General tips Take your temperature regularly, especially if you have chills or feel warm. Check with your health care provider before you: ? Travel. ? Have a dental procedure. If you get chemotherapy through an IV or port, check the site every day for signs of infection. Check for redness, swelling, pain, fluid, and warmth. Avoid activities that put you at risk for injury. Use an electric razor to shave instead of a blade. Questions to ask your health care provider What are the most common side effects of my treatment? How will they affect my daily life? What can I do to manage them? When can I expect them to end? What are some possible long-term side effects? What are possible complications? What support services are available? When should I contact my cancer care provider? What number can I call with questions or concerns? Where to find support Cancer affects the entire family. Find out what family support resources are available from your cancer treatment center. For more support, turn to: Your cancer care team. Friends and family. Your methodist community. Other people with cancer. Online support groups. Where to find more information National Cancer [place]: www.cancer.gov [place] [employer]: www.cancer.org Contact a health care provider if: You bleed or bruise often. You have: ? A skin rash or dry or itchy skin. ? A headache or stiff neck. ? Cold or flu symptoms. ? A cough. ? Nausea or vomiting. ? Diarrhea. ? Frequent urination, burning when passing urine, or foul-smelling urine. ? Blood in your urine or stool. You cannot eat because of mouth or throat pain. You are sad, confused, anxious, or depressed. Get help right away if: You have: ? A fever. ? Redness, swelling, pain, fluid, or warmth near an IV site. ? Bleeding that you cannot stop. ? A seizure. You cannot swallow. You have chest pain. You have trouble breathing. Summary Chemotherapy is a treatment that uses medicine to kill cancer cells. Chemotherapy causes side effects. The specific side effects depend on the specific medicines used. Learn as much as you can about your condition. Ask about side effects to watch for and how to treatthem. Seek out support and resources from others. Find out what family support resources are available from your cancer treatment center. Let your health care provider know if you notice any new or unusual symptoms. This information is not intended to replace advice given to you by your health care provider. Make sure you discuss any questions you have with your health care provider. Document Released: 04/26/2018 Document Revised: 04/26/2018 Document Reviewed: 04/26/2018 Perkle Patient Education 2020 [employer]. Additional Information VACCINATE! IT SAVES LIVES! Members of the community who have not yet received the COVID-19 vaccine and would like to receive it can visit one of [facility] vaccine clinics. There are many vaccine clinic locations within the [facility]. For locations and available times, please visit www.gettheshot.[email or web address].[place].gov/. It is important to note that some COVID mobile vaccine clinics are held outdoors and may be canceled in rainy or stormy conditions. To learn more about pediatric vaccinations (ages 5-11), we invite you to visit the [facility] webpage. https://www.[facility].org/pages/1965-Zpwsk-Wkhwirtkgxp-Chmoivscfq-Ytmte-Odu stions.htmlTo learn more about the COVID-19 vaccine, we invite you to visit the CDC website for a list of frequently asked questions. https://www.cdc.gov/coronavirus/2019-ncov/vaccines/faq.html [facility] Patient Portal Access Instructions: Stay connected with your healthcare team and access your personal medical information anytime with the [facility] Patient Portal.If you would like a full copy of your medical records, please contact the [facility] Medical Records Department, Monday through Monday between 8a.m. and 4:30p.m. Please follow the directions below to access the portal: 1.Access the email account you provided upon registration to the [facility].2.Look for an invitation email from [facility].3.Open the email and access the invitation link: [facility].Fill in the required delaney to create your account. Sign into [email or web address] Nouri[employer]airy with your username and password that you created in the above steps to stay up to date. You can then view a summary of results, a summary of your visits, and the ability to download your summaries to your computer or send the information securely to a physician. Remember that your healthcare information is confidential, so carefully consider who you will allow to register on the [facility] [employer] Patient Portal for access to your information. You can also access the [facility] Patient Portal on the [employer] ujlia. Simply click on "Health Records" under "HealthDaEyegroove" and then click on the Plann[employer] logo. HOW TO SAFELY DISPOSE OF PRESCRIPTION MEDICATIONS Please use one of the following methods to safely dispose of your unused medications. 1.Use a drug disposal kit: the drug disposal pouch allows you to safely discard your old and unuseddrugs. Ask your nurse to give you one when you are discharged.2.Visit a local take-back location: Many local pharmacies and police departments have programs that collect old and unwanted prescriptiondrugs. Call your local pharmacy or go to http://bit.Oddslife/3I1Yk9e to find one close to you.3.Make use of household items: Use cat litter or old coffee grounds to dispose medications if other options arenot available. Mix your drugs with these household products, seal them in an airtight container andthrow it into the garbage. Call [facility]: [phone] to be sure your drugs can be disposed of in this way. Some medicines may require a different approach.4.Never flush your medications down the toilet. IF YOU HAVE BEEN PRESCRIBED AN OPIOID FOR PAIN If you have been prescribed an opioid (such as hydrocodone, oxycodone or morphine), it is critical to understand the possible side effects and risks of opioid pain medications. Even when taken as directed, opioids can have several side effects including: Tolerance, meaning you might need to take more of a medication for the same pain relief. Nausea, vomiting and/or constipation. Sleepiness, dizziness, dry mouth, confusion, depression or itching. Physical dependence, meaning you have withdrawal symptoms when a medication is stopped, can develop within a few days. KNOW YOUR RESPONSIBILITIES It is important to know exactly how much and how often to take the opioid pain medications you are prescribed. Never take opioids in higher amounts or more often than prescribed. Do not combine opioids with alcohol or other drugs that cause drowsiness, such as benzodiazepines, also known as benzos, including diazepam and alprazolam, muscle relaxants or sleep aids. Never sell or share prescription opioids. This is illegal. Store opioids in a secure place and out of reach of others (including children, family, friends and visitors). The last page of this document has been signed and retained as a CHART COPY. Signatures Patient Education Materials Managing Chemotherapy Side Effects, Adult Medication Leaflets My discharge plan and instructions have been reviewed and explained to me and I,LYNDSAY LOPEZ understand my current condition and have read and understand these discharge instructions. I have received a written copy of the plan/instructions. If I have questions, I am aware that I should contact my doctor. 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 S/P Left cytoreductive nephrectomy 08/14/20. Final path - ccRCC withsarcomatoid features. Secondary malignant neoplasm of bone (disorder) Active Tests Performed .Auto Differential .Estimated Glomerular Filtration Rate .Neutro Absolute CBC CMP Cortisol Level Free T3 Free T4 LDH TSH Your Care Team Attending Physician - BHAVIK TRIANA MD Primary Care Physician - PROSPER MANJARREZ DO Vitals Temperature (Oral) 36.7 C Heart Rate 67 Blood Pressure 153/86 Height 172.7 cm Weight 169.3 kg BMI 56.76 What to do next Instructions From Your Doctor You have received the following therapy today: Immunotherapy -Nivolumab Call your physician if any of the following problems occur: Nausea/Vomiting Mouth Sores Diarrhea Fever Prolonged bleeding or easy bruising Pain or discomfort at the injection site Scheduled Follow-Up Appointments Appointment Type When With Where Contact InformationTelephone 12/01/2022 01:00 PM LIAN COVINGTON MD Palliative Care INF Labwork 12/22/2022 09:30 AM EST Infusion Therapy INF Chemo: Infusion 120 min (2 hours) 12/22/2022 09:45 AM EST Infusion Therapy INF Labwork 01/19/2023 09:15 AM EST Infusion Therapy HEM ONC OV Follow Up w/Active Treatment 01/19/2023 10:00 AM BHAVIK SWAN MD Hematology and Oncology INF Chemo: Infusion 120 min (2 hours) 01/19/2023 10:30 AM EST Infusion Therapy Medications What How Much When Why Instructions Unchanged amiodarone (amiodarone 200 mg oral tablet) 1 tab(s) by mouth Once a day Unchanged metoprolol (Lopressor 25mg--USE metoprolol tartrate 25 mg oral tablet) Unchanged oxyCODONE (oxyCODONE 5 mg oral tablet ( IMMEDIATE release )) 1 tab(s) by mouth Every 8 hours as needed for as needed for pain Renal cancer Unchanged polyethylene glycol 3350 (Miralax 255 gm bottle) by mouth Once a day as needed for Congestion Unchanged senna (senna (sennosides) 8.6 mg oral tablet) 2 tab(s) by mouth Two (2) times a day as needed for as needed for constipation Unchanged triamcinolone topical (triamcinolone 0.1% topical cream) 1 application Topical Two (2) times a day apply a thin film to affected area Unchanged warfarin (warfarin 5 mg oral tablet) 0.5 tab(s) by mouth Once a day as directed Test Results .Auto Differential (11/24/2022) Neutrophil % - 65.3 % Lymphocyte % - 14.2 % Monocyte % - 7.7 % Eosinophil % - 12.1 % Basophil % - 0.7 % Lymphocyte, Absolute - 1.0 10^3/mcL Monocyte, Absolute - 0.6 10^3/mcL Eosinophil, Absolute - 0.9 10^3/mcL Basophil, Absolute - 0.1 10^3/mcL .Estimated Glomerular Filtration Rate (11/24/2022) GFR Non- - 58 ml/min/1.73sqm GFR - >60 ml/min/1.73sqm .Neutro Absolute (11/24/2022) Neutrophil, Absolute - 4.8 10^3/mcL CBC (11/24/2022) WBC - 7.4 10^3/mcL RBC - 4.86 10^6/mcL Hgb - 13.1 G/dL Hct - 41.3 % MCV - 85.0 fL MCH - 27.0 pg MCHC - 31.8 G/dL RDW - 19.3 % Platelet - 233 10^3/mcL MPV - 7.7 fL CMP (11/24/2022) Glucose Level - 123 mg/dL Sodium Level - 139 mEq/L Potassium Level - 4.8 mEq/L Chloride - 106 mEq/LCO2 - 28 mEq/L Electrolyte Balance - 5.0 mEq/L BUN - 15.0 mg/dL Creatinine Lvl (s) - 1.34 mg/dL BUN/Creatinine Ratio - 11.2 ratio Calcium Lvl - 8.9 mg/dL Total Protein - 7.2 G/dL Albumin Level - 3.5 G/dL Globulin - 3.7 G/dL A/G Ratio - 0.9 ratio Bili Total - 0.50 mg/dL Alk Phos - 123 U/L AST/SGOT - 20 U/L ALT/SGPT - 19 U/L Cortisol Level (11/24/2022) Cortisol Level - 12.6 mcg/dL Free T3 (11/24/2022) Free T3 - 3.14 pg/mL Free T4 (11/24/2022) Free T4 - 1.01 ng/dL LDH (11/24/2022) LDH - 249 U/L TSH (11/24/2022) TSH - 5.707 mIU/mL Allergies penicillin (Swelling) Additional Information VACCINATE! IT SAVES LIVES! Members of the community who have not yet received the COVID-19 vaccine and would like to receive it can visit one of [facility] vaccine clinics. There are many vaccine clinic locations within the [facility]. For locations and available times, please visit [email or web address]/. It is important to note that some COVID mobile vaccine clinics are held outdoors and may be canceled in rainy or stormy conditions. To learn more about pediatric vaccinations (ages 5-11), we invite you to visit the [facility] webpage. [email or web address]/[email or web address] [email or web address] learn more about the COVID-19 vaccine, we invite you to visit the CDC website for a list of frequently asked questions. https://www.cdc.gov/coronavirus/2019-ncov/vaccines/faq.html [facility] Patient Portal Access Instructions: Stay connected with your healthcare team and access your personal medical information anytime with the [facility] Patient Portal.If you would like a full copy of your medical records, please contact the [facility] Medical Records Department, Monday through Monday between 8a.m. and 4:30p.m. Please follow the directions below to access the portal: 1.Access the email account you provided upon registration to the hospital.2.Look for an invitation email from [facility].3.Open the email and access the invitation link: Accept Invitation to [facility]4.Fill in the required delaney to create your account. Sign into [email or web address] with your username and password that you created in the above steps to stay up to date. You can then view a summary of results, a summary of your visits, and the ability to download your summaries to your computer or send the information securely to a physician. Remember that your healthcare information is confidential, so carefully consider who you will allow to register on the [facility] Patient Portal for access to your information. You can also access the [facility] Patient Portal on the [employer] julia. Simply click on "Health Records" under "[employer]" and then click on the [employer] logo. HOW TO SAFELY DISPOSE OF PRESCRIPTION MEDICATIONS Please use one of the following methods to safely dispose of your unused medications. 1.Use a drug disposal kit: the drug disposal pouch allows you to safely discard your old and unuseddrugs. Ask your nurse to give you one when you are discharged.2.Visit a local take-back location: Many local pharmacies and police departments have programs that collect old and unwanted prescriptiondrugs. Call your local pharmacy or go to http://Huan Xiong.Oddslife/7Y8Oa5p to find one close to you.3.Make use of household items: Use cat litter or old coffee grounds to dispose medications if other options arenot available. Mix your drugs with these household products, seal them in an airtight container andthrow it into the garbage. Call [facility]: [phone] to be sure your drugs can be disposed of in this way. Some medicines may require a different approach.4.Never flush your medications down the toilet. IF YOU HAVE BEEN PRESCRIBED AN OPIOID FOR PAIN If you have been prescribed an opioid (such as hydrocodone, oxycodone or morphine), it is critical to understand the possible side effects and risks of opioid pain medications. Even when taken as directed, opioids can have several side effects including: Tolerance, meaning you might need to take more of a medication for the same pain relief. Nausea, vomiting and/or constipation. Sleepiness, dizziness, dry mouth, confusion, depression or itching. Physical dependence, meaning you have withdrawal symptoms when a medication is stopped, can develop within a few days. KNOW YOUR RESPONSIBILITIES It is important to know exactly how much and how often to take the opioid pain medications you are prescribed. Never take opioids in higher amounts or more often than prescribed. Do not combine opioids with alcohol or other drugs that cause drowsiness, such as benzodiazepines, also known as benzos, including diazepam and alprazolam, muscle relaxants or sleep aids. Never sell or share prescription opioids. This is illegal. Store opioids in a secure place and out of reach of others (including children, family, friends and visitors). The last page of this document has been signed and retained as a CHART COPY. Signatures Patient Education Materials Medication Leaflets My discharge plan and instructions have been reviewed and explained to me and I,LYNDSAY LOPEZ understand my current condition and have read and understand these discharge instructions. I have received a written copy of the plan/instructions. If I have questions, I am aware that I should contact my doctor. 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 S/P Left cytoreductive nephrectomy 08/14/20. Final path - ccRCC withsarcomatoid features. Tests Performed .Auto Differential .Estimated Glomerular Filtration Rate .Neutro Absolute CBC CMP Cortisol Level Free T3 Free T4 LDH TSH Your Care Team Attending Physician - BHAVIK TRIANA MD Primary Care Physician - PROSPER MANJARREZ DO Vitals Temperature (Oral) 36.3 C Heart Rate 63 Blood Pressure 129/59 Height 173 cm Weight 176.6 kg BMI 59.01 What to do next Instructions From Your Doctor You have received the following therapy today: Chemotherapy/Immunotherapy Call your physician if any of the following problems occur: Nausea/Vomiting Mouth Sores Diarrhea Fever Prolonged bleeding or easy bruising Pain or discomfort at the injection site Scheduled Follow-Up Appointments Appointment Type When With Where Contact InformationHEM ONC OV Follow Up w/Active Treatment 11/24/2022 10:30 AM SKYT BHAVIK TRIANA MD Hematology and Oncology PALL OV Follow Up 11/24/2022 11:30 AM EDT LIAN FUNG MD Palliative Care Medications What How Much When Why Instructions Unchanged amiodarone (amiodarone 200 mg oral tablet) 1 tab(s) by mouth Once a day Unchanged doxycycline (doxycycline hyclate 100 mg oral capsule) 1 cap by mouth Two (2) times a day Folliculitis Duration: 10 Days Unchanged metoprolol (Lopressor 25mg--USE metoprolol tartrate 25 mg oral tablet) Unchanged nicotine (nicotine 14mg / 24hrs transdermal patch) 1 patch(es) Transdermal Once a day Current smoker Duration: 21 Days use after 21 mg patches Unchanged nicotine (nicotine 21mg / 24hrs transdermal patch) 1 patch(es) Transdermal Once a day Current smoker Duration: 21 Days Unchanged nicotine (nicotine 7mg / 24hrs transdermal patch) 1 patch(es) Transdermal Once a day Current smoker Duration: 21 Days use after 14mg patches Unchanged oxyCODONE (oxyCODONE 5 mg oral tablet ( IMMEDIATE release )) 1 tab(s) by mouth Every 8 hours as needed for as needed for pain Renal cancer Unchanged polyethylene glycol 3350 (Miralax 255 gm bottle) by mouth Once a day as needed for Congestion Unchanged senna (senna (sennosides) 8.6 mg oral tablet) 2 tab(s) by mouth Two (2) times a day as needed for as needed for constipation Unchanged triamcinolone topical (triamcinolone 0.1% topical cream) 1 application Topical Two (2) times a day apply a thin film to affected area Unchanged warfarin (warfarin 5 mg oral tablet) 0.5 tab(s) by mouth Once a day as directed Test Results .Auto Differential (10/27/2022) Neutrophil % - 61.9 % Lymphocyte % - 15.2 % Monocyte % - 9.6 % Eosinophil % - 12.2 % Basophil % - 1.1 % Lymphocyte, Absolute - 1.1 10^3/mcL Monocyte, Absolute - 0.7 10^3/mcL Eosinophil, Absolute - 0.9 10^3/mcL Basophil, Absolute - 0.1 10^3/mcL .Estimated Glomerular Filtration Rate (10/27/2022) GFR Non- - 54 ml/min/1.73sqm GFR - >60 ml/min/1.73sqm .Neutro Absolute (10/27/2022) Neutrophil, Absolute - 4.4 10^3/mcL CBC (10/27/2022) WBC - 7.1 10^3/mcL RBC - 4.39 10^6/mcL Hgb - 12.0 G/dL Hct - 37.8 % MCV - 86.1 fL MCH - 27.4 pg MCHC - 31.8 G/dL RDW - 17.2 % Platelet - 239 10^3/mcL MPV - 7.8 fL CMP (10/27/2022) Glucose Level - 136 mg/dL Sodium Level - 145 mEq/L Potassium Level - 4.4 mEq/L Chloride - 108 mEq/LCO2 - 31 mEq/L Electrolyte Balance - 6.0 mEq/L BUN - 19.0 mg/dL Creatinine Lvl (s) - 1.44 mg/dL BUN/Creatinine Ratio - 13.2 ratio Calcium Lvl - 8.8 mg/dL Total Protein - 6.7 G/dL Albumin Level - 3.3 G/dL Globulin - 3.4 G/dL A/G Ratio - 1.0 ratio Bili Total - 0.30 mg/dL Alk Phos - 98 U/L AST/SGOT - 14 U/L ALT/SGPT - 12 U/L Cortisol Level (10/27/2022) Cortisol Level - 17.6 mcg/dL Free T3 (10/27/2022) Free T3 - 2.77 pg/mL Free T4 (10/27/2022) Free T4 - 0.96 ng/dL LDH (10/27/2022) LDH - 215 U/L TSH (10/27/2022) TSH - 5.430 mIU/mL Allergies penicillin (Swelling) Signatures Patient Education Materials Medication Leaflets My discharge plan and instructions have been reviewed and explained to me and IJESSICA DAVID D understand my current condition and have read and understand these discharge instructions. I have received a written copy of the plan/instructions. If I have questions, I am aware that I should contact my doctor. 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 S/P Left cytoreductive nephrectomy 08/14/20. Final path - ccRCC withsarcomatoid features. 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 Tests Performed .Auto Differential .Estimated Glomerular Filtration Rate .Neutro Absolute CBC CMP Cortisol Level Free T3 Free T4 LDH TSH Your Care Team Attending Physician - BHAVIK TRIANA MD Primary Care Physician - PROSPER MANJARREZ DO Vitals Temperature (Oral) 36.3 C Heart Rate 64 Blood Pressure 141/78 Height 172.7 cm Weight 169.2 kg BMI 56.73 What to do next Instructions From Your Doctor You have received the following therapy today: Immunotherapy Call your physician if any of the following problems occur: Nausea/Vomiting Mouth Sores Diarrhea Fever Prolonged bleeding or easy bruising Pain or discomfort at the injection site Scheduled Follow-Up Appointments Appointment Type When With Where Contact InformationPC OV 10/20/2022 10:30 AM PROSPER MEADOWS DO [facility] HEM ONC OV Follow Up w/Active Treatment 10/27/2022 10:15 AM EDT BHAVIK TRIANA MD [place] [facility] Test Results .Auto Differential (09/29/2022) Neutrophil % - 69.1 % Lymphocyte % - 16.3 % Monocyte % - 7.1 % Eosinophil % - 6.6 % Basophil % - 0.9 % Lymphocyte, Absolute - 1.3 10^3/mcL Monocyte, Absolute - 0.6 10^3/mcL Eosinophil, Absolute - 0.510^3/mcL Basophil, Absolute - 0.1 10^3/mcL .Estimated Glomerular Filtration Rate (09/29/2022) GFR Non- - 53 ml/min/1.73sqm GFR - >60 ml/min/1.73sqm .Neutro Absolute (09/29/2022) Neutrophil, Absolute - 5.7 10^3/mcL CBC (09/29/2022) WBC - 8.2 10^3/mcL RBC - 4.05 10^6/mcL Hgb - 11.5 G/dL Hct - 36.3 % MCV - 89.8 fL MCH - 28.5 pg MCHC - 31.8 G/dL RDW - 16.8 % Platelet - 297 10^3/mcL MPV - 7.4 fL CMP (09/29/2022) Glucose Level - 157 mg/dL Sodium Level - 142 mEq/L Potassium Level - 4.0 mEq/L Chloride - 104 mEq/LCO2 - 29 mEq/L Electrolyte Balance - 9.0 mEq/L BUN - 18.0 mg/dL Creatinine Lvl (s) - 1.46 mg/dL BUN/Creatinine Ratio - 12.3 ratio Calcium Lvl - 8.4 mg/dL Total Protein - 6.8 G/dL Albumin Level - 3.3 G/dL Globulin - 3.5 G/dL A/G Ratio - 0.9 ratio Bili Total - 0.30 mg/dL Alk Phos - 97 U/L AST/SGOT - 13 U/L ALT/SGPT - 12 U/L Cortisol Level (09/29/2022) Cortisol Level - 18.3 mcg/dL Free T3 (09/29/2022) Free T3 - 2.95 pg/mL Free T4 (09/29/2022) Free T4 - 1.00 ng/dL LDH (09/29/2022) LDH - 208 U/L TSH (09/29/2022) TSH - 5.498 mIU/mL Signatures Patient Education Materials Medication Leaflets My discharge plan and instructions have been reviewed and explained to me and IJESSICA DAVID D understand my current condition and have read and understand these discharge instructions. I have received a written copy of the plan/instructions. If I have questions, I am aware that I should contact my doctor. Patient/Record Keeper Signature: Date/Time: Relationship to Patient: Witness Name/Signature: Date/Time: [id number] [facility]07[facility] Reason for referral (narrative)* Reason for Referral: management on RA thrombi during hospitalization for submassive PE. He is now s/p right atrial mass removal and pulmonary thrombectomy via median sternotomy [facility]07-06-2023 [facility]07-06-2023 History of Present illness Narrative* This was a virtual appointment over telephone * He underwent removal of right atrial mass and pulmonary embolectomy on 08/18/2022. * He has made an excellent recovery. * The mass was reported as showing no evidence of malignancy. * He is symptomatically much minimal shortness of breath. There was no complaints related to the wound. * He has been referred for cardiac rehab and under follow-up with Dr Elkins. -[facility] [address] Work Phone: [phone] 616-648707-06-2023 History of Present illness Narrative* This was a virtual appointment over telephone * He underwent removal of right atrial mass and pulmonary embolectomy on 08/18/2022. * He has made an excellent recovery. * The mass was reported as showing no evidence of malignancy. * He is symptomatically much minimal shortness of breath. There was no complaints related to the wound. * He has been referred for cardiac rehab and under follow-up with Dr Elkins. [facility] [address] [place] Work Phone: [phone] 548-102507-06-2023 [facility]07-06-2023 [facility] 08-15-2022 [facility] Discharge summary Date of Service 08/09/2022 Discharge Diagnosis Acute hypoxic and hypercapnic respiratory failure Pulmonary embolism of right main pulmonary artery status post EKOS 08/02/2022 Atrial flutter -- Multiple right atrial masses vs thrombi Hemoptysis Hyponatremia resolved Possible UTI completed antibiotic course Leukocytosis resolved Metastatic renal cell carcinoma Morbid obesity Possible AKHIL pending sleep study Tobacco and alcohol use Hospital Course Patient is a 42-year-old gentleman with past medical history significant for metastatic renal cell carcinoma, (status post left nephrectomy 08/2020, radiation, ipilimumab, nivolumab), T11 vertebral body fracture due to lytic bone lesion, likely AKHIL pending sleep study who presented from outside hospital on 08/01/2022 with chief complaint of shortness of breath as well as chest pain. He was found toevaluate a D-dimer and CTA was performed consistent with right main pulmonary artery clot with concern for right heart strain. He was transferred to [facility] and admitted under MICU & started on heparin by weight. Vascular surgery was consulted and underwent EKOS on 08/02/2022. Oncology on consultation for metastatic renal cancer. He was also being treated with antibiotics for possibleurinary tract infection. Urine culture negative for growth. Patient developed atrial flutter and cardiology consulted. Patient was started on beta-nitesh and dose was gradually increased to 100 mg every 8 hours. Patient was transferred out of ICU service on 08/06/2022. Patient was experiencing off and on hemoptysis s/t to pulmonary infarction. Given persistent tachycardia, electrophysiology was also involved and Patient was taken for BONNIE and cardioversion today on 08/09/2022 and found to have multiple irregular masses in the right atrial cavity with likelihood of thrombus however masses cannotbe excluded, EF 50-55%. Critical findings of BONNIE were notified and discussed with pulmonology Dr. Lopez who recommended that patient should be transferred to higher level of care for considerationof percutaneous thrombectomy and vascular intervention. Patient was agreeable to transfer. Patient was accepted at [facility] by Dr. Jiménez and was subsequently transferred to [facility] for further intervention same night. Allergies penicillin (Swelling) Consults Consult to Physician - Ordered -- 08/02/22 8:05:00 EDT, PROSPER CORDON MD, Routine, PE in R main pulmonary artery Consult to Physician - Ordered -- 08/03/22 9:46:00 EDT, BHAVIK TRIANA MD, Routine, known to provider, renal cell CA Consult to Physician - Ordered -- 08/03/22 9:47:00 EDT, JOLYNN GUAN MD, Routine, tachy arrythmia, PE s/p EKOS Imaging Results and Diagnostics CT Abdomen/Pelvis w/Contrast Result Date: August 04, 2022 Verified By: RAY MARTE MD CLINICAL STATEMENT: IMPRESSION: Confluent ground-glass and patchy opacities in the right middle and rightlower lobe. Correlate clinically and follow-up to resolution. No acute findings in the abdomen or pelvis. No evidence of new or recurrentdisease in the left nephrectomy bed. I have personally reviewed the images ofthis examination and agree with theresident's findings and interpretation. XR Chest 1 View Result Date: August 04, 2022 Verified By: ANDI TINOCO MD CLINICAL STATEMENT: IMPRESSION: Mild right atelectasis and or consolidation, also seen on the comparison. XR Chest 1 View Result Date: August 03, 2022 Verified By: CLINICAL STATEMENT: IMPRESSION: Ill-defined hazy opacification in the right lower lung. Considerationsinclude sequelae of pulmonary infarct as well as subsegmental atelectasis.Infectious/inflammatory etiologies are considered less likely especiallygiven current clinical picture. Preliminary Report was Dictated bya Resident Preliminary Report By: Trenton Cannon Dictated Time: 08/03/2022 6:55:11 AM PrelimTime: 08/03/2022 7:02:37 AM Ordering Provider: IVAN SAMS nodes 10-14 mm short axis,immeasurablelesions such as lymphangitic involvement, ascites, pleuraleffusions, etc.):? Unchanged lytic lesionwith pathological compression deformity at T11. Worsening areas of right lung base ground-glass andconsolidative opacitiesin comparison to CT thorax 08/01/2022. Liver, gallbladder, spleen, pancreas and adrenal glands are unremarkable. Right kidney is unremarkable. No hydronephrosis or urolithiasis. Patient isstatus post left nephrectomy. No new or residual disease noted in thenephrectomy bed. Uri nary bladder is unremarkable. Unremarkable prostate. Small bowel, colon and appendix are normal in caliber. There is no definitebowel wall thickening, intraperitoneal free air or focal fluid collection. Prominent subcentimeter stable celiac axis and portal caval lymph nodes arenonspecific. No pathologic lymphadenopathy. Nonaneurysmal abdominal aorta. No acute fracture. Unchanged lytic lesion pathological compression deformityat T11. Mild anasarca. Left lateral lumbar hernia containing a fewnonobstructed loops of bowel. IMPRESSION:Confluent ground-glass and patchy opacities in the right middleand rightlower lobe. Correlate clinically and follow-up to resolution. No acute findings in the abdomen or pelvis. No evidence of new or recurrentdisease in the left nephrectomy bed. I have personally reviewed the images of this examination and agree with theresident's findings and interpretation. IR Pulmonary Angio/EKOS Cath Place Result Date: August 02, 2022 Verified By: CLINICAL STATEMENT: IMPRESSION: XR Chest 1 View Result Date: August 02, 2022 Verified By: JANICE MITCHELL MD CLINICAL STATEMENT: IMPRESSION: Right infrahilar hazy opacifications likely on the basis of subsegmentalatelectasis. A developing infectious/inflammatory etiology cannot be ruledout however. I have personally reviewed the images of this examination and agree with theresident's findings and interpretation. Physical Exam Vitals and Measurements T: 36.8 C (Oral) TMIN: 36.8 C (Oral) TMAX: 37.1 C (Oral) HR: 127(Apical) RR: 18 BP: 124/95 SpO2: 91% Weight Current Weight Dosing Weight: 159 kg (08/01/22) Current Weight: 165.2 kg (08/07/22) General: Patient is not in acute distress Neck: Supple, No JVD HEENT: Normocephalic, atraumatic, Cardiac: RRR, tachycardic, no murmurs, rubs, or gallops appreciated Lungs: B/L air entry present, no wheezes, rhonchi, or rales appreciated Abdomen: Morbidly obese, bowel sounds audible, abdomen is soft, nontender, non-distended, Musculoskeletal: Preserved ROM in all 4 extremities Extremities: No clubbing or cyanosis, pitting edema Skin: Warm, well perfused, no bruises Neurological: Alert and orientated x3, No gross focal neurological deficits Code Status No qualifying data available. Admission Date 08/01/2022 Discharge Date 08/09/2022 Follow Up Appointments No qualifying data available. Follow Up Labs/Studies Discharge Labs No Follow-up Labs Discharge Studies No Follow-up Studies Discharge Diet No qualifying data available. Discharge Activity No qualifying data available. Condition on Discharge Fair Discharge Disposition [facility] Digitally Signed by MIKE RIVERA MD on 08/10/2022 12:54 AM [place] [id number] Oncology Progress note Subjective He was feeling better No chest pain Shortness of breath improved Objective Vitals and Measurements T: 36.8 C (Oral) TMIN: 36.8 C (Oral) TMAX: 37.1 C (Oral) HR: 127(Apical) RR: 18 BP: 124/95 SpO2: 91% Intake and Output 7AM Yesterday to 7AM Today Intake and Output (Last 24 hours) Intake Administration Information 100.00 Output Urine Voided 2500.00 Total Summary Total Intake 100.00 Total Output 2500.00 Fluid Balance -2400.00 Physical Exam In no apparent distress 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 Respiratory: No breathing difficulty Weight Current Weight Dosing Weight: 159 kg (08/01/22) Current Weight: 165.2 kg (08/07/22) Medications Medications (19) Active Scheduled: (8) lidocaine 1% (MPF) 2 mL vial pf 2.5 mg 0.25 mL, Intradermal, prep pharm lidocaine patch REMOVAL 1 EA, Miscellaneous, q24h lidocaine topical 4% patch 1 patch(es), Transdermal, q24h menthol (Biofreeze) gel packet 1 julia, Topical, qDay metoprolol tartrate 100 mg tablet 100 mg 1 tab(s), Oral, q8h miconazole topical 2% Powder 1 julia, Topical, BID Nicoderm patch REMOVAL 1 EA, Miscellaneous, q24h nicotine 14 mg/24 hr ER patch 14 mg 1 patch(es), Transdermal, q24h Continuous: (2) Dextrose 5% with 0.45% NACL 1,000 mL 1,000 mL, Intravenous, 20 mL/hr heparin 25,000 unit(s) + Dextrose 5% Premix Diluent 250 mL 250 mL, Intravenous, 25 mL/hr PRN: (9) acetaminophen 325 mg Tablet 650 mg 2 tab(s), Oral, q4h heparin 5,000 units/mL (1 mL) vial 8,750 unit(s) 1.75 mL, IV Push, q6h heparin 5,000 units/mL (1 mL) vial 6,360 unit(s) 1.27 mL, IV Push, q6h melatonin 5 mg tablet 5 mg 1 tab(s), Oral, qHS ondansetron 2 mg/ 1 mL 2 mL INJ 4 mg 2 mL, IV Push, q4h oxycodone 5 mg tablet (immediate release) 5 mg 1 tab(s), Oral, q4h oxycodone 5 mg tablet (immediate release) 10 mg 2 tab(s), Oral, q4h polyethylene glycol 3350 - UD packet 17 gram(s) 15 mL, Oral, BID senna 8.6 mg Tablet 8.6 mg 1 tab(s), Oral, qDay Lab Results 08/09 04:23 WBC: 10.6 Hgb: 12.8 L Hct: 39.2 L Platelet: 249 Neutrophil %: 68.4 Glucose Level: 107 Sodium Level: 136 Potassium Level: 4.7 BUN: 24.0 H Creatinine Lvl (s): 1.24 08/08 09:33 WBC: 11.3 H Hgb: 12.7 L Hct: 39.0 L Platelet: 245 Neutrophil %: 71.8 Glucose Level: 101 Sodium Level: 137 Potassium Level: 4.8 BUN: 25.0 H Creatinine Lvl (s): 1.25 EKG Electrocardiogram - Ordered -- 08/09/22 10:19:00 EDT, IN [facility]OR RECEIVING Assessment/Plan Renal cancer Oncology consultation for metastatic renal cell carcinoma Patient was admitted to the hospital on account of increasing shortness of breath and chest discomfort in the right second CT angiogram of the chest showed large pulmonary emboli in the right distal main artery and distal branches on the right side. Evidence of right heart strain was seen. 08/02/2022: Dr. Cordon performed EKOS catheter based thrombolysis of the right pulmonary artery thrombus Patient was treated with heparin. Patient was now on apixaban Patient has stage IV renal cell carcinoma Metastatic renal cell carcinoma. S/P Left cytoreductive nephrectomy 08/14/20. Final path - ccRCC withsarcomatoid features. Metastatic renal cell carcinoma Patient is receiving nivolumab Stable disease Treatment will be held Continue IV heparin Later on changed to oral anticoagulant Immunotherapy will be held this week. 08/04/2022: CT scan of abdomen and pelvis did not show any evidence of cancer progression Patient's case was discussed with Dr. Sepulveda from cardiology He is being treated for tachycardia Patient is being transferred to [place] for cardioversion. Blood clot seen on the BONNIE Overall patient was feeling better Digitally Signed by BHAVIK TRIANA MD on 08/09/2022 06:34 PM [id number] Pulmonary Progress note Date of Service 08/09/2022 Chief Complaint 42-year-old gentleman who presented to outside ED with chief complaint of shortness of breath as well as chest pain. He has a past medical history of metastatic renal cell carcinoma (status post leftnephrectomy 08/2020, radiation, ipilimumab, nivolumab), T11 vertebral body fracture due to lytic bone lesion, likely AKHIL pending sleep study . Patient admitted to [facility] acute submassive PE he is status post catheter directed thrombolysis. Post thrombolysis, the patient was having some hemoptysis that was thought to be secondary to a pulmonary infarction seen on CT scan. Last 24 hours: Chest pain has improved, the patient had a BONNIE planned due to persistent tachyarrhythmia. BONNIE showed large relatively mobile density in the right atrium so procedure was aborted. Objective Vitals and Measurements T: 36.9 C (Oral) TMIN: 36.8 C (Oral) TMAX: 37.1 C (Oral) HR: 127(Apical) RR: 20 BP: 124/98 SpO2: 93% Intake and Output 7AM Yesterday to 7AM Today Intake and Output (Last 24 hours) Intake Administration Information 100.00 Output Urine Voided 1300.00 Total Summary Total Intake 100.00 Total Output 1300.00 Fluid Balance -1200.00 Physical Exam HEENT: Clear Heart: Regular, tachy Lungs: Clear breath sounds bilaterally no wheezing Abdomen: Soft no tenderness Lower extremities: No edema Neuro: Alert, follows command moves all 4 extremities Weight Current Weight Dosing Weight: 159 kg (08/01/22) Current Weight: 165.2 kg (08/07/22) Medications Medications (19) Active Scheduled: (8) lidocaine 1% (MPF) 2 mL vial pf 2.5 mg 0.25 mL, Intradermal, prep pharm lidocaine patch REMOVAL 1 EA, Miscellaneous, q24h lidocaine topical 4% patch 1 patch(es), Transdermal, q24h menthol (Biofreeze) gel packet 1 julia, Topical, qDay metoprolol tartrate 100 mg tablet 100 mg 1 tab(s), Oral, q8h miconazole topical 2% Powder 1 julia, Topical, BID Nicoderm patch REMOVAL 1 EA, Miscellaneous, q24h nicotine 14 mg/24 hr ER patch 14 mg 1 patch(es), Transdermal, q24h Continuous: (2) Dextrose 5% with 0.45% NACL 1,000 mL 1,000 mL, Intravenous, 20 mL/hr heparin 25,000 unit(s) + Dextrose 5% Premix Diluent 250 mL 250 mL, Intravenous, 25 mL/hr PRN: (9) acetaminophen 325 mg Tablet 650 mg 2 tab(s), Oral, q4h heparin 5,000 units/mL (1 mL) vial 8,750 unit(s) 1.75 mL, IV Push, q6h heparin 5,000 units/mL (1 mL) vial 6,360 unit(s) 1.27 mL, IV Push, q6h melatonin 5 mg tablet 5 mg 1 tab(s), Oral, qHS ondansetron 2 mg/ 1 mL 2 mL INJ 4 mg 2 mL, IV Push, q4h oxycodone 5 mg tablet (immediate release) 5 mg 1 tab(s), Oral, q4h oxycodone 5 mg tablet (immediate release) 10 mg 2 tab(s), Oral, q4h polyethylene glycol 3350 - UD packet 17 gram(s) 15 mL, Oral, BID senna 8.6 mg Tablet 8.6 mg 1 tab(s), Oral, qDay Lab Results 08/09 04:23 WBC: 10.6 Hgb: 12.8 L Hct: 39.2 L Platelet: 249 Neutrophil %: 68.4 Glucose Level: 107 Sodium Level: 136 Potassium Level: 4.7 BUN: 24.0 H Creatinine Lvl (s): 1.24 08/08 09:33 WBC: 11.3 H Hgb: 12.7 L Hct: 39.0 L Platelet: 245 Neutrophil %: 71.8 Glucose Level: 101 Sodium Level: 137 Potassium Level: 4.8 BUN: 25.0 H Creatinine Lvl (s): 1.25 EKG Electrocardiogram - Ordered -- 08/09/22 10:19:00 EDT, IN CVOR RECEIVING Assessment/Plan Renal cancer 1. Acute pulmonary emboli status post catheter directed thrombolysis/EKOS. With hemoptysis due to pulm infarction 2. Echodensity seen in the right atrium on BONNIE 3. Metastatic renal Carcinoma status post left-sided nephrectomy 2020, still followed by oncology. 4. A-fib/flutter. With rapid ventricular rate 5. Obesity with probable obstructive sleep apnea. Plan: 1. Due to concerns about embol embolus seen on the recent BONNIE, I recommended transfer to a higher level of care where there may be percutaneous thrombectomy options to be evaluated. 2. Transition back to heparin by weight 3. 2 L of oxygen, nocturnal BiPAP 15/8 cmH2O for suspected obstructive sleep apnea, patient scheduled for outpatient sleep study. Digitally Signed by EMILIO LOPEZ MD on 08/09/2022 05:14 PM [id number] Note Date of Service 08/09/2022 Chief Complaint Tachycardia, shortness of breath Subjective Patient is a 42-year-old gentleman with past medical history significant for metastatic renal cell carcinoma, (status post left nephrectomy 08/2020, radiation, ipilimumab, nivolumab), T11 vertebral body fracture due to lytic bone lesion, likely AKHIL pending sleep study who presented from outside hospital on 08/01/2022 with chief complaint of shortness of breath as well as chest pain. He was found toevaluate a D-dimer and CTA was performed consistent with right main pulmonary artery clot with concern for right heart strain. He was transferred to [facility] and admitted under MICU started on heparin by weight. Vascular surgery was consulted and underwent EKOS on 08/02/2022. Oncology on consultation for metastatic renal cancer. He was also being treated with antibiotics for possible urinary tract infection. Patient developed atrial flutter and cardiology on consultation. Patient was started on beta-nitesh and dose was gradually increased to 100 mg every 8 hours. Patient was transferred out of ICU service on 08/06/2022. Given persistent tachycardia, electrophysiology was also involved and plan is to perform BONNIE and cardioversion today. Patient seen and examined today morning at bedside. Telemetry reviewed and heart rate remains in 120s. No other acute events reported overnight. Currently on 2 L nasal oxygen. Denies any worsening shortness of breath, chest pain, palpitations. Hemoptysis seems to be improving after switching to Eliquis. Objective Vitals and Measurements T: 36.9 C (Oral) TMIN: 36.5 C (Oral) TMAX: 37.1 C (Oral) HR: 128(Apical) RR: 18 BP: 121/85 SpO2: 100% Intake and Output 7AM Yesterday to 7AM Today Intake and Output (Last 24 hours) Intake Administration Information 160.00 Oral Intake 760.00 Output Urine Voided 1625.00 Total Summary Total Intake 920.00 Total Output 1625.00 Fluid Balance -705.00 Physical Exam General: Patient is not in acute distress Neck: Supple, No JVD HEENT: Normocephalic, atraumatic, Cardiac: RRR, tachycardic S1 and S2 present, no murmurs, rubs, or gallops appreciated Lungs: Clear to auscultation bilaterally, no wheezes, rhonchi, or rales appreciated Abdomen: Morbidly obese, bowel sounds audible, abdomen is soft, nontender, non-distended, Musculoskeletal: Preserved ROM in all 4 extremities Extremities: No clubbing or cyanosis, pitting edema Skin: Warm, well perfused, no bruises Neurological: Alert and orientated x3, No gross focal neurological deficits Weight Current Weight Dosing Weight: 159 kg (08/01/22) Current Weight: 165.2 kg (08/07/22) Medications Medications (18) Active Scheduled: (10) apixaban 5 mg tablet 5 mg 1 tab(s), Oral, BID lidocaine 1% (MPF) 2 mL vial pf 2.5 mg 0.25 mL, Intradermal, prep pharm lidocaine patch REMOVAL 1 EA, Miscellaneous, q24h lidocaine topical 4% patch 1 patch(es), Transdermal, q24h magnesium sulfate 2 gram(s) 50 mL, IV Piggyback, Once menthol (Biofreeze) gel packet 1 julia, Topical, qDay metoprolol tartrate 100 mg tablet 100 mg 1 tab(s), Oral, q8h miconazole topical 2% Powder 1 julia, Topical, BID Nicoderm patch REMOVAL 1 EA, Miscellaneous, q24h nicotine 14 mg/24 hr ER patch 14 mg 1 patch(es), Transdermal, q24h Continuous: (1) Dextrose 5% with 0.45% NACL 1,000 mL 1,000 mL, Intravenous, 20 mL/hr PRN: (7) acetaminophen 325 mg Tablet 650 mg 2 tab(s), Oral, q4h melatonin 5 mg tablet 5 mg 1 tab(s), Oral, qHS ondansetron 2 mg/ 1 mL 2 mL INJ 4 mg 2 mL, IV Push, q4h oxycodone 5 mg tablet (immediate release) 5 mg 1 tab(s), Oral, q4h oxycodone 5 mg tablet (immediate release) 10 mg 2 tab(s), Oral, q4h polyethylene glycol 3350 - UD packet 17 gram(s) 15 mL, Oral, BID senna 8.6 mg Tablet 8.6 mg 1 tab(s), Oral, qDay Lab Results 08/09 04:23 WBC: 10.6 Hgb: 12.8 L Hct: 39.2 L Platelet: 249 Neutrophil %: 68.4 Glucose Level: 107 Sodium Level: 136 Potassium Level: 4.7 BUN: 24.0 H Creatinine Lvl (s): 1.24 08/08 09:33 WBC: 11.3 H Hgb: 12.7 L Hct: 39.0 L Platelet: 245 Neutrophil %: 71.8 Glucose Level: 101 Sodium Level: 137 Potassium Level: 4.8 BUN: 25.0 H Creatinine Lvl (s): 1.25 Imaging Results and Diagnostics CT Abdomen/Pelvis w/Contrast Result Date: August 04, 2022 Verified By: RAY MARTE MD CLINICAL STATEMENT: IMPRESSION: Confluent ground-glass and patchy opacities in the right middle and rightlower lobe. Correlate clinically and follow-up to resolution. No acute findings in the abdomen or pelvis. No evidence of new or recurrentdisease in the left nephrectomy bed. I have personally reviewed the images ofthis examination and agree with theresident's findings and interpretation. XR Chest 1 View Result Date: August 04, 2022 Verified By: ANDI TINOCO MD CLINICAL STATEMENT: IMPRESSION: Mild right atelectasis and or consolidation, also seen on the comparison. XR Chest 1 View Result Date: August 03, 2022 Verified By: CLINICAL STATEMENT: IMPRESSION: Ill-defined hazy opacification in the right lower lung. Considerationsinclude sequelae of pulmonary infarct as well as subsegmental atelectasis.Infectious/inflammatory etiologies are considered less likely especiallygiven current clinical picture. Preliminary Report was Dictated bya Resident Preliminary Report By: Trenton Cannon Dictated Time: 08/03/2022 6:55:11 AM PrelimTime: 08/03/2022 7:02:37 AM Ordering Provider: IVAN SAMS nodes 10-14 mm short axis,immeasurablelesions such as lymphangitic involvement, ascites, pleuraleffusions, etc.):? Unchanged lytic lesionwith pathological compression deformity at T11. Worsening areas of right lung base ground-glass andconsolidative opacitiesin comparison to CT thorax 08/01/2022. Liver, gallbladder, spleen, pancreas and adrenal glands are unremarkable. Right kidney is unremarkable. No hydronephrosis or urolithiasis. Patient isstatus post left nephrectomy. No new or residual disease noted in thenephrectomy bed. Uri nary bladder is unremarkable. Unremarkable prostate. Small bowel, colon and appendix are normal in caliber. There is no definitebowel wall thickening, intraperitoneal free air or focal fluid collection. Prominent subcentimeter stable celiac axis and portal caval lymph nodes arenonspecific. No pathologic lymphadenopathy. Nonaneurysmal abdominal aorta. No acute fracture. Unchanged lytic lesion pathological compression deformityat T11. Mild anasarca. Left lateral lumbar hernia containing a fewnonobstructed loops of bowel. IMPRESSION:Confluent ground-glass and patchy opacities in the right middleand rightlower lobe. Correlate clinically and follow-up to resolution. No acute findings in the abdomen or pelvis. No evidence of new or recurrentdisease in the left nephrectomy bed. I have personally reviewed the images of this examination and agree with theresident's findings and interpretation. IR Pulmonary Angio/EKOS Cath Place Result Date: August 02, 2022 Verified By: CLINICAL STATEMENT: IMPRESSION: XR Chest 1 View Result Date: August 02, 2022 Verified By: JANICE MITCHELL MD CLINICAL STATEMENT: IMPRESSION: Right infrahilar hazy opacifications likely on the basis of subsegmentalatelectasis. A developing infectious/inflammatory etiology cannot be ruledout however. I have personally reviewed the images of this examination and agree with theresident's findings and interpretation. EKG No qualifying data available. Assessment/Plan Acute hypoxic and hypercapnic respiratory failure Pulmonary embolism of right main pulmonary artery status post EKOS 08/02/2022 Atrial flutter Hemoptysis Hyponatremia resolved Possible UTI completed antibiotic course Leukocytosis resolved Metastatic renal cell carcinoma Morbid obesity Possible AKHIL pending sleep study Tobacco and alcohol use Plan: 1. Regarding acute hypoxic respiratory failure/pulmonary embolism Patient underwent EKOS on 08/02/2022. Currently on 2 L nasal cannula oxygen. After discussing with hematology/oncology and cardiology, patient was transitioned to apixaban 5 mgtwice daily. Patient seems almost 1 week of IV heparin by weight during the stay. Continue to wean off oxygen as tolerated. He was experiencing he notices that seems to be improving after transition to oral anticoagulation. 2. Regarding atrial flutter, Cardiology/EP following. Dose of beta-nitesh was increased to 100 mg 3 times daily. Remains tachycardic with heart rates in 130s. Plan for BONNIE with cardioversion today followed by antiarrhythmic as per EP. Appreciate input from cardiology/EP. 3. Regarding UTI Patient completed antibiotics for possible UT during his MICU stay.. Denies any current symptoms of UTI. 4. Regarding metastatic renal cell carcinoma, hematology/oncology following. Patient currently on nivolumab that is being held this week. 5. BiPAP for underlying suspected obstructive sleep apnea as per pulmonology. Patient is scheduled for sleep study next month. 6. 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 Plan of care discussed with patient at bedside. Digitally Signed by MKIE RIVERA MD on 08/09/2022 01:51 PM [id number] Note Date of Service 08/09/2022 Chief Complaint Tachycardia, shortness of breath Subjective Patient is a 42-year-old gentleman with past medical history significant for metastatic renal cell carcinoma, (status post left nephrectomy 08/2020, radiation, ipilimumab, nivolumab), T11 vertebral body fracture due to lytic bone lesion, likely AKHIL pending sleep study who presented from outside hospital on 08/01/2022 with chief complaint of shortness of breath as well as chest pain. He was found toevaluate a D-dimer and CTA was performed consistent with right main pulmonary artery clot with concern for right heart strain. He was transferred to [facility] and admitted under MICU started on heparin by weight. Vascular surgery was consulted and underwent EKOS on 08/02/2022. Oncology on consultation for metastatic renal cancer. He was also being treated with antibiotics for possible urinary tract infection. Patient developed atrial flutter and cardiology on consultation. Patient was started on beta-nitesh and dose was gradually increased to 100 mg every 8 hours. Patient was transferred out of ICU service on 08/06/2022. Given persistent tachycardia, electrophysiology was also involved and plan is to perform BONNIE and cardioversion today. Patient seen and examined today morning at bedside. Telemetry reviewed and heart rate remains in 120s. No other acute events reported overnight. Currently on 2 L nasal oxygen. Denies any worsening shortness of breath, chest pain, palpitations. Hemoptysis seems to be improving after switching to Eliquis. Objective Vitals and Measurements T: 36.9 C (Oral) TMIN: 36.5 C (Oral) TMAX: 37.1 C (Oral) HR: 128(Apical) RR: 18 BP: 121/85 SpO2: 100% Intake and Output 7AM Yesterday to 7AM Today Intake and Output (Last 24 hours) Intake Administration Information 160.00 Oral Intake 760.00 Output Urine Voided 1625.00 Total Summary Total Intake 920.00 Total Output 1625.00 Fluid Balance -705.00 Physical Exam General: Patient is not in acute distress Neck: Supple, No JVD HEENT: Normocephalic, atraumatic, Cardiac: RRR, tachycardic S1 and S2 present, no murmurs, rubs, or gallops appreciated Lungs: Clear to auscultation bilaterally, no wheezes, rhonchi, or rales appreciated Abdomen: Morbidly obese, bowel sounds audible, abdomen is soft, nontender, non-distended, Musculoskeletal: Preserved ROM in all 4 extremities Extremities: No clubbing or cyanosis, pitting edema Skin: Warm, well perfused, no bruises Neurological: Alert and orientated x3, No gross focal neurological deficits Weight Current Weight Dosing Weight: 159 kg (08/01/22) Current Weight: 165.2 kg (08/07/22) Medications Medications (18) Active Scheduled: (10) apixaban 5 mg tablet 5 mg 1 tab(s), Oral, BID lidocaine 1% (MPF) 2 mL vial pf 2.5 mg 0.25 mL, Intradermal, prep pharm lidocaine patch REMOVAL 1 EA, Miscellaneous, q24h lidocaine topical 4% patch 1 patch(es), Transdermal, q24h magnesium sulfate 2 gram(s) 50 mL, IV Piggyback, Once menthol (Biofreeze) gel packet 1 julia, Topical, qDay metoprolol tartrate 100 mg tablet 100 mg 1 tab(s), Oral, q8h miconazole topical 2% Powder 1 julia, Topical, BID Nicoderm patch REMOVAL 1 EA, Miscellaneous, q24h nicotine 14 mg/24 hr ER patch 14 mg 1 patch(es), Transdermal, q24h Continuous: (1) Dextrose 5% with 0.45% NACL 1,000 mL 1,000 mL, Intravenous, 20 mL/hr PRN: (7) acetaminophen 325 mg Tablet 650 mg 2 tab(s), Oral, q4h melatonin 5 mg tablet 5 mg 1 tab(s), Oral, qHS ondansetron 2 mg/ 1 mL 2 mL INJ 4 mg 2 mL, IV Push, q4h oxycodone 5 mg tablet (immediate release) 5 mg 1 tab(s), Oral, q4h oxycodone 5 mg tablet (immediate release) 10 mg 2 tab(s), Oral, q4h polyethylene glycol 3350 - UD packet 17 gram(s) 15 mL, Oral, BID senna 8.6 mg Tablet 8.6 mg 1 tab(s), Oral, qDay Lab Results 08/09 04:23 WBC: 10.6 Hgb: 12.8 L Hct: 39.2 L Platelet: 249 Neutrophil %: 68.4 Glucose Level: 107 Sodium Level: 136 Potassium Level: 4.7 BUN: 24.0 H Creatinine Lvl (s): 1.24 08/08 09:33 WBC: 11.3 H Hgb: 12.7 L Hct: 39.0 L Platelet: 245 Neutrophil %: 71.8 Glucose Level: 101 Sodium Level: 137 Potassium Level: 4.8 BUN: 25.0 H Creatinine Lvl (s): 1.25 Imaging Results and Diagnostics CT Abdomen/Pelvis w/Contrast Result Date: August 04, 2022 Verified By: RAY MARTE MD CLINICAL STATEMENT: IMPRESSION: Confluent ground-glass and patchy opacities in the right middle and rightlower lobe. Correlate clinically and follow-up to resolution. No acute findings in the abdomen or pelvis. No evidence of new or recurrentdisease in the left nephrectomy bed. I have personally reviewed the images ofthis examination and agree with theresident's findings and interpretation. XR Chest 1 View Result Date: August 04, 2022 Verified By: ANDI TINOCO MD CLINICAL STATEMENT: IMPRESSION: Mild right atelectasis and or consolidation, also seen on the comparison. XR Chest 1 View Result Date: August 03, 2022 Verified By: CLINICAL STATEMENT: IMPRESSION: Ill-defined hazy opacification in the right lower lung. Considerationsinclude sequelae of pulmonary infarct as well as subsegmental atelectasis.Infectious/inflammatory etiologies are considered less likely especiallygiven current clinical picture. Preliminary Report was Dictated bya Resident Preliminary Report By: Trenton Cannon Dictated Time: 08/03/2022 6:55:11 AM PrelimTime: 08/03/2022 7:02:37 AM Ordering Provider: IVAN SAMS nodes 10-14 mm short axis,immeasurablelesions such as lymphangitic involvement, ascites, pleuraleffusions, etc.):? Unchanged lytic lesionwith pathological compression deformity at T11. Worsening areas of right lung base ground-glass andconsolidative opacitiesin comparison to CT thorax 08/01/2022. Liver, gallbladder, spleen, pancreas and adrenal glands are unremarkable. Right kidney is unremarkable. No hydronephrosis or urolithiasis. Patient isstatus post left nephrectomy. No new or residual disease noted in thenephrectomy bed. Uri nary bladder is unremarkable. Unremarkable prostate. Small bowel, colon and appendix are normal in caliber. There is no definitebowel wall thickening, intraperitoneal free air or focal fluid collection. Prominent subcentimeter stable celiac axis and portal caval lymph nodes arenonspecific. No pathologic lymphadenopathy. Nonaneurysmal abdominal aorta. No acute fracture. Unchanged lytic lesion pathological compression deformityat T11. Mild anasarca. Left lateral lumbar hernia containing a fewnonobstructed loops of bowel. IMPRESSION:Confluent ground-glass and patchy opacities in the right middleand rightlower lobe. Correlate clinically and follow-up to resolution. No acute findings in the abdomen or pelvis. No evidence of new or recurrentdisease in the left nephrectomy bed. I have personally reviewed the images of this examination and agree with theresident's findings and interpretation. IR Pulmonary Angio/EKOS Cath Place Result Date: August 02, 2022 Verified By: CLINICAL STATEMENT: IMPRESSION: XR Chest 1 View Result Date: August 02, 2022 Verified By: JANICE MITCHELL MD CLINICAL STATEMENT: IMPRESSION: Right infrahilar hazy opacifications likely on the basis of subsegmentalatelectasis. A developing infectious/inflammatory etiology cannot be ruledout however. I have personally reviewed the images of this examination and agree with theresident's findings and interpretation. EKG No qualifying data available. Assessment/Plan Acute hypoxic and hypercapnic respiratory failure Pulmonary embolism of right main pulmonary artery status post EKOS 08/02/2022 Atrial flutter Hemoptysis Hyponatremia resolved Possible UTI completed antibiotic course Leukocytosis resolved Metastatic renal cell carcinoma Morbid obesity Possible AKHIL pending sleep study Tobacco and alcohol use Plan: 1. Regarding acute hypoxic respiratory failure/pulmonary embolism Patient underwent EKOS on 08/02/2022. Currently on 2 L nasal cannula oxygen. After discussing with hematology/oncology and cardiology, patient was transitioned to apixaban 5 mgtwice daily. Patient seems almost 1 week of IV heparin by weight during the stay. Continue to wean off oxygen as tolerated. He was experiencing he notices that seems to be improving after transition to oral anticoagulation. 2. Regarding atrial flutter, Cardiology/EP following. Dose of beta-nitesh was increased to 100 mg 3 times daily. Remains tachycardic with heart rates in 130s. Plan for BONNIE with cardioversion today followed by antiarrhythmic as per EP. Appreciate input from cardiology/EP. 3. Regarding UTI Patient completed antibiotics for possible UT during his MICU stay.. Denies any current symptoms of UTI. 4. Regarding metastatic renal cell carcinoma, hematology/oncology following. Patient currently on nivolumab that is being held this week. 5. BiPAP for underlying suspected obstructive sleep apnea as per pulmonology. Patient is scheduled for sleep study next month. 6. 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 Plan of care discussed with patient at bedside. Digitally Signed by MIKE RIVERA MD on 08/09/2022 01:51 PM [id number] Note Date of Service 08/09/2022 Chief Complaint Tachycardia, shortness of breath Subjective Patient is a 42-year-old gentleman with past medical history significant for metastatic renal cell carcinoma, (status post left nephrectomy 08/2020, radiation, ipilimumab, nivolumab), T11 vertebral body fracture due to lytic bone lesion, likely AKHIL pending sleep study who presented from outside hospital on 08/01/2022 with chief complaint of shortness of breath as well as chest pain. He was found toevaluate a D-dimer and CTA was performed consistent with right main pulmonary artery clot with concern for right heart strain. He was transferred to [facility] and admitted under MICU started on heparin by weight. Vascular surgery was consulted and underwent EKOS on 08/02/2022. Oncology on consultation for metastatic renal cancer. He was also being treated with antibiotics for possible urinary tract infection. Patient developed atrial flutter and cardiology on consultation. Patient was started on beta-nitesh and dose was gradually increased to 100 mg every 8 hours. Patient was transferred out of ICU service on 08/06/2022. Given persistent tachycardia, electrophysiology was also involved and plan is to perform BONNIE and cardioversion today. Patient seen and examined today morning at bedside. Telemetry reviewed and heart rate remains in 120s. No other acute events reported overnight. Currently on 2 L nasal oxygen. Denies any worsening shortness of breath, chest pain, palpitations. Hemoptysis seems to be improving after switching to Eliquis. Objective Vitals and Measurements T: 36.9 C (Oral) TMIN: 36.5 C (Oral) TMAX: 37.1 C (Oral) HR: 128(Apical) RR: 18 BP: 121/85 SpO2: 100% Intake and Output 7AM Yesterday to 7AM Today Intake and Output (Last 24 hours) Intake Administration Information 160.00 Oral Intake 760.00 Output Urine Voided 1625.00 Total Summary Total Intake 920.00 Total Output 1625.00 Fluid Balance -705.00 Physical Exam General: Patient is not in acute distress Neck: Supple, No JVD HEENT: Normocephalic, atraumatic, Cardiac: RRR, tachycardic S1 and S2 present, no murmurs, rubs, or gallops appreciated Lungs: Clear to auscultation bilaterally, no wheezes, rhonchi, or rales appreciated Abdomen: Morbidly obese, bowel sounds audible, abdomen is soft, nontender, non-distended, Musculoskeletal: Preserved ROM in all 4 extremities Extremities: No clubbing or cyanosis, pitting edema Skin: Warm, well perfused, no bruises Neurological: Alert and orientated x3, No gross focal neurological deficits Weight Current Weight Dosing Weight: 159 kg (08/01/22) Current Weight: 165.2 kg (08/07/22) Medications Medications (18) Active Scheduled: (10) apixaban 5 mg tablet 5 mg 1 tab(s), Oral, BID lidocaine 1% (MPF) 2 mL vial pf 2.5 mg 0.25 mL, Intradermal, prep pharm lidocaine patch REMOVAL 1 EA, Miscellaneous, q24h lidocaine topical 4% patch 1 patch(es), Transdermal, q24h magnesium sulfate 2 gram(s) 50 mL, IV Piggyback, Once menthol (Biofreeze) gel packet 1 julia, Topical, qDay metoprolol tartrate 100 mg tablet 100 mg 1 tab(s), Oral, q8h miconazole topical 2% Powder 1 julia, Topical, BID Nicoderm patch REMOVAL 1 EA, Miscellaneous, q24h nicotine 14 mg/24 hr ER patch 14 mg 1 patch(es), Transdermal, q24h Continuous: (1) Dextrose 5% with 0.45% NACL 1,000 mL 1,000 mL, Intravenous, 20 mL/hr PRN: (7) acetaminophen 325 mg Tablet 650 mg 2 tab(s), Oral, q4h melatonin 5 mg tablet 5 mg 1 tab(s), Oral, qHS ondansetron 2 mg/ 1 mL 2 mL INJ 4 mg 2 mL, IV Push, q4h oxycodone 5 mg tablet (immediate release) 5 mg 1 tab(s), Oral, q4h oxycodone 5 mg tablet (immediate release) 10 mg 2 tab(s), Oral, q4h polyethylene glycol 3350 - UD packet 17 gram(s) 15 mL, Oral, BID senna 8.6 mg Tablet 8.6 mg 1 tab(s), Oral, qDay Lab Results 08/09 04:23 WBC: 10.6 Hgb: 12.8 L Hct: 39.2 L Platelet: 249 Neutrophil %: 68.4 Glucose Level: 107 Sodium Level: 136 Potassium Level: 4.7 BUN: 24.0 H Creatinine Lvl (s): 1.24 08/08 09:33 WBC: 11.3 H Hgb: 12.7 L Hct: 39.0 L Platelet: 245 Neutrophil %: 71.8 Glucose Level: 101 Sodium Level: 137 Potassium Level: 4.8 BUN: 25.0 H Creatinine Lvl (s): 1.25 Imaging Results and Diagnostics CT Abdomen/Pelvis w/Contrast Result Date: August 04, 2022 Verified By: RAY MARTE MD CLINICAL STATEMENT: IMPRESSION: Confluent ground-glass and patchy opacities in the right middle and rightlower lobe. Correlate clinically and follow-up to resolution. No acute findings in the abdomen or pelvis. No evidence of new or recurrentdisease in the left nephrectomy bed. I have personally reviewed the images ofthis examination and agree with theresident's findings and interpretation. XR Chest 1 View Result Date: August 04, 2022 Verified By: ANDI TINOCO MD CLINICAL STATEMENT: IMPRESSION: Mild right atelectasis and or consolidation, also seen on the comparison. XR Chest 1 View Result Date: August 03, 2022 Verified By: CLINICAL STATEMENT: IMPRESSION: Ill-defined hazy opacification in the right lower lung. Considerationsinclude sequelae of pulmonary infarct as well as subsegmental atelectasis.Infectious/inflammatory etiologies are considered less likely especiallygiven current clinical picture. Preliminary Report was Dictated bya Resident Preliminary Report By: Trenton Cannon Dictated Time: 08/03/2022 6:55:11 AM PrelimTime: 08/03/2022 7:02:37 AM Ordering Provider: IVAN SAMS nodes 10-14 mm short axis,immeasurablelesions such as lymphangitic involvement, ascites, pleuraleffusions, etc.):? Unchanged lytic lesionwith pathological compression deformity at T11. Worsening areas of right lung base ground-glass andconsolidative opacitiesin comparison to CT thorax 08/01/2022. Liver, gallbladder, spleen, pancreas and adrenal glands are unremarkable. Right kidney is unremarkable. No hydronephrosis or urolithiasis. Patient isstatus post left nephrectomy. No new or residual disease noted in thenephrectomy bed. Uri nary bladder is unremarkable. Unremarkable prostate. Small bowel, colon and appendix are normal in caliber. There is no definitebowel wall thickening, intraperitoneal free air or focal fluid collection. Prominent subcentimeter stable celiac axis and portal caval lymph nodes arenonspecific. No pathologic lymphadenopathy. Nonaneurysmal abdominal aorta. No acute fracture. Unchanged lytic lesion pathological compression deformityat T11. Mild anasarca. Left lateral lumbar hernia containing a fewnonobstructed loops of bowel. IMPRESSION:Confluent ground-glass and patchy opacities in the right middleand rightlower lobe. Correlate clinically and follow-up to resolution. No acute findings in the abdomen or pelvis. No evidence of new or recurrentdisease in the left nephrectomy bed. I have personally reviewed the images of this examination and agree with theresident's findings and interpretation. IR Pulmonary Angio/EKOS Cath Place Result Date: August 02, 2022 Verified By: CLINICAL STATEMENT: IMPRESSION: XR Chest 1 View Result Date: August 02, 2022 Verified By: JANICE MITCHELL MD CLINICAL STATEMENT: IMPRESSION: Right infrahilar hazy opacifications likely on the basis of subsegmentalatelectasis. A developing infectious/inflammatory etiology cannot be ruledout however. I have personally reviewed the images of this examination and agree with theresident's findings and interpretation. EKG No qualifying data available. Assessment/Plan Acute hypoxic and hypercapnic respiratory failure Pulmonary embolism of right main pulmonary artery status post EKOS 08/02/2022 Atrial flutter Hemoptysis Hyponatremia resolved Possible UTI completed antibiotic course Leukocytosis resolved Metastatic renal cell carcinoma Morbid obesity Possible AKHIL pending sleep study Tobacco and alcohol use Plan: 1. Regarding acute hypoxic respiratory failure/pulmonary embolism Patient underwent EKOS on 08/02/2022. Currently on 2 L nasal cannula oxygen. After discussing with hematology/oncology and cardiology, patient was transitioned to apixaban 5 mgtwice daily. Patient seems almost 1 week of IV heparin by weight during the stay. Continue to wean off oxygen as tolerated. He was experiencing he notices that seems to be improving after transition to oral anticoagulation. 2. Regarding atrial flutter, Cardiology/EP following. Dose of beta-nitesh was increased to 100 mg 3 times daily. Remains tachycardic with heart rates in 130s. Plan for BONNIE with cardioversion today followed by antiarrhythmic as per EP. Appreciate input from cardiology/EP. 3. Regarding UTI Patient completed antibiotics for possible UT during his MICU stay.. Denies any current symptoms of UTI. 4. Regarding metastatic renal cell carcinoma, hematology/oncology following. Patient currently on nivolumab that is being held this week. 5. BiPAP for underlying suspected obstructive sleep apnea as per pulmonology. Patient is scheduled for sleep study next month. 6. 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 Plan of care discussed with patient at bedside. Digitally Signed by MIKE RIVERA MD on 08/09/2022 01:51 PM [id number] Anesthesiology Consult note Patient: LYNDSAY LOPEZ Age: 42 years Sex: Male : 1980 Associated Diagnoses: None Author: MAR BERNARD MD Preoperative Information Greater than 8 hours Anesthesia history Patient's history: negative. Family's history: negative. History of Present Illness Multiple medical problems and recent pulmonary embolism for BONNIE/Cardioversion Review of Systems Ear/Nose/Mouth/Throat: See Problem List. Respiratory: See Problem List. Cardiovascular: See Problem List. Gastrointestinal: See Problem List. Genitourinary: See Problem List. Endocrine: See Problem List. Musculoskeletal: See Problem List. Integumentary: See Problem List. Neurologic: See Problem List. See problem list and procedure results for specifics. Health Status Allergies: Allergic Reactions (Selected) Severity Not Documented Penicillin- Swelling., Allergies (1) ActiveReaction penicillinSwelling Current medications: (Selected) Inpatient Medications Ordered Biofreeze gel packet: 1 julia, Topical, qDay D51/2NS 1,000 mL: 20 mL/hr, Intravenous Lopressor: 100 mg, 1 tab(s), Oral, q8h Miralax Powder Packet: 17 gram(s), 15 mL, Oral, BID, PRN: Constipation Nicoderm C-Q 14 mg/24 hr transdermal film, extended release: 14 mg, 1 patch(es), Transdermal, q24h Tylenol: 650 mg, 2 tab(s), Oral, q4h, PRN: Pain, scale 1-3 Zofran: 4 mg, 2 mL, IV Push, q4h, PRN: Nausea/Vomiting apixaban: 5 mg, 1 tab(s), Oral, BID lidocaine (lidocaine Patch REMOVAL): 1 EA, Miscellaneous, q24h lidocaine 1% preservative-free injectable solution: 2.5 mg, 0.25 mL, Intradermal, prep pharm lidocaine 4% topical patch: 1 patch(es), Transdermal, q24h melatonin: 5 mg, 1 tab(s), Oral, qHS, PRN: Sleep miconazole 2% topical powder: 1 julia, Topical, BID nicotine (Nicoderm Patch REMOVAL): 1 EA, Miscellaneous, q24h oxyCODONE 5 mg oral tablet ( IMMEDIATE release ): 10 mg, 2 tab(s), Oral, q4h, PRN: Pain, scale 7-10 oxyCODONE 5 mg oral tablet ( IMMEDIATE release ): 5 mg, 1 tab(s), Oral, q4h, PRN: Pain, scale 4-6 senna: 8.6 mg, 1 tab(s), Oral, qDay, PRN: Constipation Future EPINEPHrine 1 mg/mL injectable solution: 0.3 mg, 0.3 mL, Intramuscular INF, Once, Day 1, PRN: Other(see order comments) NS 1000 mL Bolus: 1,000 mL, IV Bolus, Once, Day 1, PRN: Other (see order comments) Zero Time Placeholder: None, Day of Tx, Day 1 diphenhydrAMINE: 50 mg, 1 mL, IV Push (INF), Once, Day 1, PRN: Other (see order comments) famotidine: 20 mg, 2 mL, IV Push (INF), Once, Day 1, PRN: Other (see order comments) hydrocortisone 100 mg preservative-free injection: 100 mg, IV Push (INF), Once, Day 1, PRN: Other (see order comments) nivolumab (DoT): 480 mg, 48 mL, 296 mL/hr, IV Piggyback, Day of Tx, Day 1 Prescriptions Prescribed oxyCODONE 5 mg oral tablet ( IMMEDIATE release ): 5 mg, 1 tab(s), Oral, q8h, PRN: as needed for pain, 90 tab(s), 0 Refill(s) Documented Medications Documented Miralax 255 gm bottle: gram(s), Oral, qDay, PRN: Congestion, 0 Refill(s) senna 8.6 mg oral tablet: 17.2 mg, 2 tab(s), Oral, BID, PRN: as needed for constipation, 20 tab(s),0 Refill(s), Medications (17) Active Scheduled: (9) apixaban 5 mg tablet 5 mg 1 tab(s), Oral, BID lidocaine 1% (MPF) 2 mL vial pf 2.5 mg 0.25 mL, Intradermal, prep pharm lidocaine patch REMOVAL 1 EA, Miscellaneous, q24h lidocaine topical 4% patch 1 patch(es), Transdermal, q24h menthol (Biofreeze) gel packet 1 julia, Topical, qDay metoprolol tartrate 100 mg tablet 100 mg 1 tab(s), Oral, q8h miconazole topical 2% Powder 1 julia, Topical, BID Nicoderm patch REMOVAL 1 EA, Miscellaneous, q24h nicotine 14 mg/24 hr ER patch 14 mg 1 patch(es), Transdermal, q24h Continuous: (1) Dextrose 5% with 0.45% NACL 1,000 mL 1,000 mL, Intravenous, 20 mL/hr PRN: (7) acetaminophen 325 mg Tablet 650 mg 2 tab(s), Oral, q4h melatonin 5 mg tablet 5 mg 1 tab(s), Oral, qHS ondansetron 2 mg/ 1 mL 2 mL INJ 4 mg 2 mL, IV Push, q4h oxycodone 5 mg tablet (immediate release) 5 mg 1 tab(s), Oral, q4h oxycodone 5 mg tablet (immediate release) 10 mg 2 tab(s), Oral, q4h polyethylene glycol 3350 - UD packet 17 gram(s) 15 mL, Oral, BID senna 8.6 mg Tablet 8.6 mg 1 tab(s), Oral, qDay Problem list: Medical Alcohol abuse / SNOMED CT 25485124 / Confirmed Cigarette smoker Active / SNOMED CT 669917335 / Confirmed T11 vertebral fracture / SNOMED CT 9682771276 / Confirmed Marijuana user Active / SNOMED CT 5223024402 / Confirmed Metastatic renal cell carcinoma. S/P Left cytoreductive nephrectomy 08/14/20. Final path - ccRCC withsarcomatoid features. / SNOMED CT 0159515535 / Confirmed Lung nodule, multiple Active / SNOMED CT 4511746280 / Confirmed No chronic diseases present / SNOMED CT [id number] / Confirmed Left renal mass. 9.6-cm. With perinephric fat invasion. With lytic bony lesion and pulmonary nodules concerning for mets. BS, 07/2020 - neg. CT brain, 07/2020 - neg. S/P Radical nephrectomy 08/14/20. / SNOMED CT 670097303 / Confirmed Secondary malignant neoplasm of bone (disorder) Active / SNOMED CT 808213964 / Confirmed Tobacco abuse / SNOMED CT 113448693 / Confirmed Viral gastroenteritis / SNOMED CT 776345166 / Confirmed Resolved: Renal cell carcinoma (disorder) Active / SNOMED CT 9201317808 Canceled: Left renal mass. 9.6-cm. With perinephric fat invasion. With lytic bony lesion and pulmonary nodules concerning for mets. / SNOMED CT 086586195 Canceled: Left renal mass. 9.6-cm. With perinephric fat invasion. With lytic bony lesion and pulmonary nodules concerning for mets. CT brain, 07/2020 - neg. / SNOMED CT 071792503 Canceled: Left renal mass. 9.6-cm. With perinephric fat invasion. With lytic bony lesion and pulmonary nodules concerning for mets. BS, 07/2020 - neg. CT brain, 07/2020 - neg. / SNOMED CT 434627027, Active Problems (26) Alcohol abuse Anxiety Arthritis At risk for sleep apnea Back pain Bleeding hemorrhoid BMI 50.0-59.9, adult Constipation COPD - Chronic obstructive pulmonary disease PIERSON (dyspnea on exertion) Elevated hemoglobin A1c Glasses Left renal mass. 9.6-cm. With perinephric fat invasion. With lytic bony lesion and pulmonary nodules Metastatic renal cell carcinoma. S/P Left cytoreductive nephrectomy 08/14/20. Final path - ccRCC with No chronic diseases present Pain management Rash Severe pain Sleep apnea T11 vertebral fracture Tobacco abuse Viral gastroenteritis Cigarette smoker Active Lung nodule, multiple Active Marijuana user Active Secondary malignant neoplasm of bone (disorder) Active Histories Past Medical History: Active No chronic diseases present ([id number]) Resolved Renal cell carcinoma (disorder) Active ([id number]): Resolved. Family History: Kidney stone Mother Sister Rheumatoid arthritis Mother Hypertension Mother Father Heart attack Father Crohn's disease Sister HTN - Hypertension Mother Father Diabetes Father Procedure history: Tooth extraction ([id number]) on 08/28/2021 at 41 Years. Nephrectomy, including partial ureterectomy, any open approach including rib resection; radical, with regional lymphadenectomy and/or vena caval thrombectomy ([id number]) on 08/14/2020 at 40 Years. Tonsillectomy ([id number]). Chemotherapy (952602142). Comments: 11/17/2020 9:50 HENOK Bucio 3 weeks ago Boost radiation therapy ([id number]). Comments: 11/17/2020 9:51 HENOK Bucio J 10-5-21 Social History Social & Psychosocial Habits Alcohol 11/07/2016Risk Assessment: Medium Risk 03/07/2022 Use: Current Type: Beer Frequency: Daily Previous treatment: Outpatient Has alcohol use interfered with work or home life: No Do you ever drink more than intended: Yes Has anyone been hurt or at risk by your drinking: Yes Ready to change: Yes Comment: Quit JULY 16, 2020 - 08/14/2020 10:33 - HENOK Purdy Employment/School 12/16/2020 Status: Employed Substance Abuse 11/07/2016Risk Assessment: Denies Substance Abuse 08/14/2020 Use: Current Type: Marijuana Frequency: 1-2 times per month IV drug use: No Ready to change: No Concerns about substance abuse in household: No Tobacco 08/07/2020 Tobacco Use: 10 or more cigarettes (1/ Type: Cigarettes Started at age: 13 Years Ready to change: Yes Comment: Daily Tobacco/Smoke Exposure - 10/25/2018 09:49 - Mely [facility] Home/Environment 08/14/2020 Domestic Concerns None Living situation: Home with assistance 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 Physical Examination Vital Signs 08/09/2022 11:19 EDT Heart Rate Monitored 122 bpm HI Respiratory Rate 20 br/min Systolic Blood Pressure Non-Invasive 124 mmHg Diastolic Blood Pressure Non-Invasive 98 mmHg HI Blood Pressure Method Automatic Blood Pressure Location Left arm 08/09/2022 11:15 EDT Heart Rate Monitored 122 bpm HI Respiratory Rate 20 br/min Systolic Blood Pressure Non-Invasive 113 mmHg Diastolic Blood Pressure Non-Invasive 87 mmHg Blood Pressure Method Automatic Blood Pressure Location Left arm 08/09/2022 11:13 EDT Systolic Blood Pressure Non-Invasive 102 mmHg mmHg Diastolic Blood Pressure Non-Invasive 73 mmHg mmHg 08/09/2022 11:10 EDT Heart Rate Monitored 122 bpm bpm 08/09/2022 11:09 EDT Systolic Blood Pressure Non-Invasive 96 mmHg mmHg Diastolic Blood Pressure Non-Invasive 78 mmHg mmHg 08/09/2022 11:06 EDT Systolic Blood Pressure Non-Invasive 95 mmHg mmHg Diastolic Blood Pressure Non-Invasive 65 mmHg mmHg 08/09/2022 11:05 EDT Heart Rate Monitored 120 bpm bpm 08/09/2022 11:04 EDT Systolic Blood Pressure Non-Invasive 91 mmHg mmHg Diastolic Blood Pressure Non-Invasive 62 mmHg mmHg 08/09/2022 11:00 EDT Heart Rate Monitored 124 bpm bpm Systolic Blood Pressure Non-Invasive 90 mmHg mmHg Diastolic Blood Pressure Non-Invasive 72 mmHg mmHg 08/09/2022 10:57 EDT Systolic Blood Pressure Non-Invasive 93 mmHg mmHg Diastolic Blood Pressure Non-Invasive 72 mmHg mmHg 08/09/2022 10:55 EDT Heart Rate Monitored 123 bpm bpm Systolic Blood Pressure Non-Invasive 97 mmHg mmHg Diastolic Blood Pressure Non-Invasive 69 mmHg mmHg 08/09/2022 10:51 EDT Systolic Blood Pressure Non-Invasive 112 mmHg mmHg Diastolic Blood Pressure Non-Invasive 88 mmHg mmHg 08/09/2022 10:50 EDT Heart Rate Monitored 123 bpm bpm 08/09/2022 10:49 EDT Systolic Blood Pressure Non-Invasive 97 mmHg mmHg Diastolic Blood Pressure Non-Invasive 82 mmHg mmHg 08/09/2022 10:45 EDT Heart Rate Monitored 126 bpm bpm Systolic Blood Pressure Non-Invasive 142 mmHg mmHg Diastolic Blood Pressure Non-Invasive 101 mmHg mmHg 08/09/2022 10:42 EDT Systolic Blood Pressure Non-Invasive 126 mmHg mmHg Diastolic Blood Pressure Non-Invasive 90 mmHg mmHg 08/09/2022 10:40 EDT Heart Rate Monitored 126 bpm bpm 08/09/2022 8:03 EDT Apical Heart Rate 128 bpm >HHI 08/09/2022 7:49 EDT Temperature Oral 36.9 DegC Heart Rate Monitored 128 bpm HI Respiratory Rate 18 br/min Systolic Blood Pressure Non-Invasive 121 mmHg Diastolic Blood Pressure Non-Invasive 85 mmHg Mean Arterial Pressure (NBP) 98 mmHg Reason For Taking VItal Signs Routine 08/09/2022 4:17 EDT Temperature Oral 36.8 DegC Heart Rate Monitored 127 bpm HI Respiratory Rate 18 br/min Systolic Blood Pressure Non-Invasive 120 mmHg Diastolic Blood Pressure Non-Invasive 86 mmHg Mean Arterial Pressure (NBP) 97 mmHg Reason For Taking VItal Signs Routine 08/09/2022 1:03 EDT Apical Heart Rate 129 bpm >HHI 08/09/2022 0:53 EDT Temperature Oral 37.1 DegC Peripheral Pulse Rate 132 bpm >HHI Respiratory Rate 18 br/min Systolic Blood Pressure Non-Invasive 124 mmHg Diastolic Blood Pressure Non-Invasive 78 mmHg 08/08/2022 20:14 EDT Temperature Oral 36.8 DegC Heart Rate Monitored 128 bpm HI Respiratory Rate 20 br/min Systolic Blood Pressure Non-Invasive 144 mmHg HI Diastolic Blood Pressure Non-Invasive 80 mmHg Mean Arterial Pressure (NBP) 98 mmHg Reason For Taking VItal Signs Routine 08/08/2022 16:13 EDT Apical Heart Rate 131 bpm >HHI 08/08/2022 16:10 EDT Heart Rate Monitored 126 bpm HI Respiratory Rate 20 br/min Systolic Blood Pressure Non-Invasive 114 mmHg Diastolic Blood Pressure Non-Invasive 69 mmHg Mean Arterial Pressure (NBP) 83 mmHg Reason For Taking VItal Signs Routine 08/08/2022 13:46 EDT Heart Rate Monitored 128 bpm HI 08/08/2022 11:42 EDT Temperature Oral 36.5 DegC Heart Rate Monitored 126 bpm HI Respiratory Rate 20 br/min Systolic Blood Pressure Non-Invasive 112 mmHg Diastolic Blood Pressure Non-Invasive 39 mmHg Mean Arterial Pressure (NBP) 62 mmHg 08/08/2022 9:45 EDT Apical Heart Rate 129 bpm >HHI 08/08/2022 9:16 EDT Temperature Oral 36.7 DegC Heart Rate Monitored 126 bpm HI Respiratory Rate 20 br/min Systolic Blood Pressure Non-Invasive 115 mmHg Diastolic Blood Pressure Non-Invasive 81 mmHg Mean Arterial Pressure (NBP) 92 mmHg Reason For Taking VItal Signs Routine 08/08/2022 4:15 EDT Temperature Oral 36.8 DegC Heart Rate Monitored 127 bpm HI Respiratory Rate 20 br/min Systolic Blood Pressure Non-Invasive 129 mmHg Diastolic Blood Pressure Non-Invasive 81 mmHg Mean Arterial Pressure (NBP) 95 mmHg 08/08/2022 0:19 EDT Apical Heart Rate 128 bpm >HHI 08/08/2022 0:15 EDT Heart Rate Monitored 129 bpm HI Respiratory Rate 21 br/min HI Systolic Blood Pressure Non-Invasive 133 mmHg Diastolic Blood Pressure Non-Invasive 88 mmHg Reason For Taking VItal Signs Routine Vital Signs(last 24 hrs) Last Charted Temp Oral36.9 DegC (AUG 09 07:49) Heart Rate MonitoredH 122bpm (AUG 09 11:19) Resp Rate 20 br/min (AUG 09 11:19) QIU958 mmHg (AUG 09 11:19) DBPH 98mmHg (AUG 09 11:19) Measurements from flowsheet : Measurements 08/08/2022 13:17 EDT [place] Body Weight 70 kg Pain assessment: Pain Assessment 08/09/2022 11:19 EDT Pain Scale Type 0-10 Pain scale 08/09/2022 11:15 EDT Pain Scale Type 0-10 Pain scale 08/09/2022 7:49 EDT Primary Pain Location Lower back Primary Pain Location Lower back Primary Pain Intensity 2 Primary Pain Intensity 2 Primary Pain Non-Pharma Intervention Repositioning, Rest Primary Pain Non-Pharma Intervention Repositioning, Rest Primary Pain Nonverbal Response Appears restful Primary Pain Nonverbal Response Appears restful Pain Scale Type 0-10 Pain scale 08/09/2022 4:17 EDT Primary Pain Intensity 0 Primary Pain Nonverbal Response Nods No Pain Scale Type 0-10 Pain scale 08/09/2022 2:03 EDT Pain Scale Assessment PAINAD Primary Pain Location Lower back Primary Pain Intensity 2 08/09/2022 1:03 EDT Primary Pain Intensity 7 08/09/2022 0:53 EDT Primary Pain Location Lower back Primary Pain Intensity 7 Primary Pain Pharma Intervention Medication Primary Pain Non-Pharma Intervention Repositioning, Rest Pain Scale Type 0-10 Pain scale 08/08/2022 20:14 EDT Primary Pain Intensity 0 Primary Pain Nonverbal Response Nods No Pain Scale Type 0-10 Pain scale 08/08/2022 16:10 EDT Primary Pain Intensity 0 Primary Pain Nonverbal Response Nods No Pain Scale Type 0-10 Pain scale 08/08/2022 11:42 EDT Primary Pain Intensity 0 Primary Pain Nonverbal Response Nods No Pain Scale Type 0-10 Pain scale 08/08/2022 9:16 EDT Primary Pain Intensity 2 Primary Pain Nonverbal Response Nods No Pain Scale Type 0-10 Pain scale 08/08/2022 7:30 EDT Pain Scale Assessment 0-10 Pain scale Primary Pain Location Generalized Primary Pain Intensity 0 08/08/2022 5:42 EDT Primary Pain Intensity 7 08/08/2022 4:15 EDT Primary Pain Location Lower back Primary Pain Intensity 3 Primary Pain Pharma Intervention Medication Pain Scale Type 0-10 Pain scale 08/08/2022 0:15 EDT Primary Pain Location Lower back Primary Pain Intensity 6 Primary Pain Pharma Intervention Medication Pain Scale Type 0-10 Pain scale . General: Alert and oriented. Airway: Normal temporomandibular joint mobility, Normal mouth, Normal throat, Normal neck range of motion, Trachea midline. Mallampati classification: II (soft palate, fauces, uvula visible). Head: Normocephalic. Dentition Evaluation: Intact, Own teeth, Denies loose/chipped teeth. Neck: Supple. Respiratory: Lungs are clear to auscultation, Respirations are non-labored. Cardiovascular: Normal rate, No murmur. Heart Sounds: Normal. Neurologic: Alert, Oriented. Review / Management Results review: Labs (Last four charted values) WBC 10.6(WILLIAM 27)H 11.3(WILLIAM 26)H 13.9(WILLIAM 25)H 13.4(WILLIAM 24) Hgb L 12.8(WILLIAM 27)L 12.7(WILLIAM 26)L 12.8(WILLIAM 25)13.5(WILLIAM 24) Hct L 39.2(WILLIAM 27)L 39.0(WILLIAM 26)L 39.0(WILLIAM 25)41.1(WILLIAM 24) Plt 249(WILLIAM 27)245(WILLIAM 26)201(WILLIAM 25)177(WILLIAM 24) Na 136(WILLIAM 27)137(WILLIAM 26)L 133(WILLIAM 25)L 133(WILLIAM 24) K 4.7(WILLIAM 27)4.8(WILLIAM 26)5.0(WILLIAM 25)H 5.2(WILLIAM 24) CO2 32(WILLIAM 27)H 34(WILLIAM 26)H 34(WILLIAM 25)H 34(WILLIAM 24) Cl 103(WILLIAM 27)100(WILLIAM 26)99(WILLIAM 25)98(WILLIAM 24) Cr 1.24(WILLIAM 27)1.25(WILLIAM 26)1.25(WILLIAM 25)1.18(WILLIAM 24) BUN H 24.0(WILLIAM 27)H 25.0(WILLIAM 26)H 28.0(WILLIAM 25)H 23.0(WILLIAM 24) Glucose 107(WILLIAM 27)101(WILLIAM 26)H 128(WILLIAM 25)H 117(WILLIAM 24) Mg 1.8(WILLIAM 27)1.9(WILLIAM 26)2.0(WILLIAM 23)2.0(WILLIAM 22) Phos 4.0(WILLIAM 23) Ca L 8.5(WILLIAM 27)8.8(WILLIAM 26)8.7(AUG 07)9.1(AUG 06) PT H 15.1(AUG 07)13.8(AUG 02)H 15.7(AUG 01) INR 1.3(AUG 07)1.2(AUG 02)1.3(AUG 01) PTT C 123.0(AUG 08)C 143.6(AUG 07)H 64.7(AUG 07)C 172.2(AUG 07) , Lab results 08/09/2022 12:03 EDT Anesthesiology Consultation Post anesthesia Evaluation Cardioversion - JPM 08/09/2022 12:02 EDT magnesium sulfate 2 gram(s) gram(s) 08/09/2022 11:54 EDT Date/Time of Report 08/09/2022 11:39 Report Given To RN, HAMMAD RN Report Mode Phone Transfer Report Vital signs, LOC, Orientation, Comfort status, I&O, Fluid replacement status (IV) Patient Disposition Other: PATIENT ROOM Mode of Departure Bed Present at Departure IV, Monitor, Oxygen 08/09/2022 11:19 EDT Heart Rate Monitored 122 bpm HI Respiratory Rate 20 br/min Systolic Blood Pressure Non-Invasive 124 mmHg Diastolic Blood Pressure Non-Invasive 98 mmHg HI Blood Pressure Method Automatic Blood Pressure Location Left arm Pain Scale Type 0-10 Pain scale Monitor Alarms On and Limits Checked Heart Rhythm Irregular Cardiac Rhythm Atrial fibrillation Alarms On and Functional Yes Heart Rate Alarm Set At - Low 50 Heart Rate Alarm Set At - High 150 Cough Loose, Occasional, Able to clear secretions Sputum Amount Small Sputum Color Light, [place] Sputum Consistency Thick Oxygen Therapy Venti-Mask Oxygen Saturation 99 % Oxygen Flow Rate 8 Level of Consciousness Arousable with minimal stimulation Affect/Behavior Appropriate, Calm, Cooperative Orientation Oriented x 4 Jo Motor (2) Moves 4 extremities voluntarily or on command Jo Respirations (1) Spontaneous respiration with support Jo Blood Pressure (2) BP 20% above or below preanesthetic level Jo Pulse (2) Pulse 20% above or below preanesthetic level Jo Oxygen Saturation (2) 94% or more Jo Level of Consciousness (1) Arouses on calling Jo III Score 10 Orientation Assessment Oriented x 4 Pt./Caregiver Remote Cont.Visual Monitor Verbalizes/Nonverbally indicates understanding Activity Status ADL Resting Standard Safety ID band on, Allergy Band on, Wheels locked 08/09/2022 11:18 EDT SN - CAt - Case Attendee SN - CAt - Case Attendee SN - CAt - Role Performed NONPROFIT DIRECTOR SN - CAt - Role Performed Procedure Nurse 08/09/2022 11:18 EDT SN - CAt - Case Attendee SN - CAt - Case Attendee SN - CAt - Case Attendee SN - CAt - Case Attendee SN - CAt - Case Attendee SN - CAt - Case Attendee SN - CAt - Case Attendee SN - CAt - Case Attendee SN - CAt - Case Attendee SN - CAt - Case Attendee SN - CAt - Case Attendee SN - CAt - Case Attendee SN - CAt - Case Attendee SN - CAt - Case Attendee SN - CAt - Role Performed Primary Surgeon (Modified) SN - CAt - Role Performed Anesthesiologist (Modified) SN - CAt - Role Performed Screen Writer (Modified) SN - CAt - Role Performed STS (Modified) SN - CAt - Role Performed Medical Student (Modified) SN - CAt - Role Performed Procedure Nurse (Modified) 08/09/2022 11:16 EDT Out of Room Remains in Current Location Special Procedures 08/09/2022 11:15 EDT SN - CTm - Anesthesia Stop Time Anesthesia Stop Anesthesia Final Record 08/09/2022 11:15 EDT Heart Rate Monitored 122 bpm HI Respiratory Rate 20 br/min Systolic Blood Pressure Non-Invasive 113 mmHg Diastolic Blood Pressure Non-Invasive 87 mmHg Blood Pressure Method Automatic Blood Pressure Location Left arm Pain Scale Type 0-10 Pain scale Monitor Alarms On and Limits Checked Heart Rhythm Irregular Cardiac Rhythm Atrial fibrillation Alarms On and Functional Yes Heart Rate Alarm Set At - Low 50 Heart Rate Alarm Set At - High 150 Respiratory Symptoms Short of breath lying flat Respirations Labored Suction Method Oral Cough Loose, Occasional, Able to clear secretions Suction Device [place] Sputum Amount Small Sputum Color Light, [place] Sputum Consistency Thick Oxygen Therapy Venti-Mask Oxygen Saturation 99 % Oxygen Flow Rate 10 Level of Consciousness Arousable with minimal stimulation Affect/Behavior Appropriate, Calm, Cooperative Orientation Oriented x 4 Jo Motor (1) Spinal or spontaneous movement Jo Respirations (1) Spontaneous respiration with support Jo Blood Pressure (2) BP 20% above or below preanesthetic level Jo Pulse (2) Pulse 20% above or below preanesthetic level Jo Oxygen Saturation (2) 94% or more Jo Level of Consciousness (1) Arouses on calling Jo III Score 9 Orientation Assessment Oriented x 4 Pt./Caregiver Remote Cont.Visual Monitor Verbalizes/Nonverbally indicates understanding Activity Status ADL Sleeping Standard Safety ID band on, Allergy Band on, Wheels locked Lactated Ringers Injection 100 mL mL 08/09/2022 11:13 EDT Systolic Blood Pressure Non-Invasive 102 mmHg mmHg Diastolic Blood Pressure Non-Invasive 73 mmHg mmHg 08/09/2022 11:10 EDT Heart Rate Monitored 122 bpm bpm Oxygen Saturation 97.8 % % 08/09/2022 11:09 EDT Systolic Blood Pressure Non-Invasive 96 mmHg mmHg Diastolic Blood Pressure Non-Invasive 78 mmHg mmHg 08/09/2022 11:06 EDT SN - GCD - Post-operative Diagnosis ATRIAL FIBRILLATION 08/09/2022 11:06 EDT SN - CTm - Surgery Stop 08/09/2022 11:06 08/09/2022 11:06 EDT Systolic Blood Pressure Non-Invasive 95 mmHg mmHg Diastolic Blood Pressure Non-Invasive 65 mmHg mmHg SN - CTm - Surgery Stop Surgery Stop CVOR Intraop Record CVOR Intraop Record (Modified) CVOR Recovery Cardioversion Record CVOR Recovery Record 08/09/2022 11:05 EDT Heart Rate Monitored 120 bpm bpm Oxygen Saturation 78.3 % % 08/09/2022 11:04 EDT Systolic Blood Pressure Non-Invasive 91 mmHg mmHg Diastolic Blood Pressure Non-Invasive 62 mmHg mmHg 08/09/2022 11:03 EDT SN - Proc - Actual Procedure TRANSESOPHAGEAL ECHOCARDIOGRAM (Modified) 08/09/2022 11:01 EDT propofol 30 mg mg 08/09/2022 11:00 EDT Heart Rate Monitored 124 bpm bpm Systolic Blood Pressure Non-Invasive 90 mmHg mmHg Diastolic Blood Pressure Non-Invasive 72 mmHg mmHg Oxygen Saturation 97.2 % % propofol 20 mg mg 08/09/2022 10:57 EDT Systolic Blood Pressure Non-Invasive 93 mmHg mmHg Diastolic Blood Pressure Non-Invasive 72 mmHg mmHg 08/09/2022 10:55 EDT Heart Rate Monitored 123 bpm bpm Systolic Blood Pressure Non-Invasive 97 mmHg mmHg Diastolic Blood Pressure Non-Invasive 69 mmHg mmHg Oxygen Saturation 92.6 % % propofol 20 mg mg 08/09/2022 10:51 EDT SN - Proc - Anesthesia Type General SN - Proc - EBL 0 mL 08/09/2022 10:51 EDT Systolic Blood Pressure Non-Invasive 112 mmHg mmHg Diastolic Blood Pressure Non-Invasive 88 mmHg mmHg propofol 30 mg mg 08/09/2022 10:50 EDT SN - PP - Body Position OP Supine 08/09/2022 10:50 EDT Heart Rate Monitored 123 bpm bpm Oxygen Saturation 97.7 % % 08/09/2022 10:49 EDT Systolic Blood Pressure Non-Invasive 97 mmHg mmHg Diastolic Blood Pressure Non-Invasive 82 mmHg mmHg 08/09/2022 10:48 EDT SN - GCD - ASA Class 2 SN - GCD - Case Level Flat-Fee 08/09/2022 10:47 EDT SN - CTm - Surgery Start 08/09/2022 10:40 08/09/2022 10:46 EDT propofol 120 mg mg 08/09/2022 10:45 EDT Heart Rate Monitored 126 bpm bpm Systolic Blood Pressure Non-Invasive 142 mmHg mmHg Diastolic Blood Pressure Non-Invasive 101 mmHg mmHg Oxygen Saturation 100 % % 08/09/2022 10:42 EDT Systolic Blood Pressure Non-Invasive 126 mmHg mmHg Diastolic Blood Pressure Non-Invasive 90 mmHg mmHg Intra-Op EBL 0 mL 08/09/2022 10:40 EDT Heart Rate Monitored 126 bpm bpm Oxygen Saturation 99.1 % % SN - CTm - Surgery Start Surgery Start 08/09/2022 10:36 EDT SN - CTm - Anesthesia Start Time Anesthesia Start Lactated Ringers Injection Begin Bag 1,000 mL mL 08/09/2022 10:35 EDT Oxygen Saturation 98.8 % % 08/09/2022 10:21 EDT Accompanied By Staff Monitor, Nurse, Transporter Out of Room Went to Current Location Special Procedures Transport via Bed 08/09/2022 10:19 EDT Electrocardiogram - EKG - CV Ordered (In Progress) 08/09/2022 10:03 EDT lidocaine topical 1 patch(es) patch(es) 08/09/2022 10:00 EDT Transesophageal Echocardiogram - CV Arrived (In Progress) 08/09/2022 9:00 EDT apixaban Not Done: Physician Order (Not Done) menthol topical Not Done: Patient Refused (Not Done) Nicoderm Patch REMOVAL 1 EA EA 08/09/2022 8:45 EDT Worker's Comp Patient No (Unauth) PT Attempts Attempted PT but pt is very agitated. He reports trying to sleep as he did not get sleep last night, but is monitors are keeping him up. Pt is scheduled for a BONNIE today and requests a later time if possible. (Unauth) PT Initiate/Continue Treatment Yes (Unauth) Physical Therapy Daily Notes Form Physical Therapy Daily Notes Form (Unauth) Physical Therapy Progress Note Physical Therapy Daily Notes (Unauth) 08/09/2022 8:03 EDT Apical Heart Rate 128 bpm >HHI apixaban 5 mg mg (In Error) metoprolol 100 mg mg miconazole topical 1 julia julia nicotine 14 mg mg 08/09/2022 7:49 EDT Temperature Oral 36.9 DegC Heart Rate Monitored 128 bpm HI Respiratory Rate 18 br/min Systolic Blood Pressure Non-Invasive 121 mmHg Diastolic Blood Pressure Non-Invasive 85 mmHg Mean Arterial Pressure (NBP) 98 mmHg Reason For Taking VItal Signs Routine Primary Pain Location Lower back Primary Pain Location Lower back Primary Pain Intensity 2 Primary Pain Intensity 2 Primary Pain Non-Pharma Intervention Repositioning, Rest Primary Pain Non-Pharma Intervention Repositioning, Rest Primary Pain Nonverbal Response Appears restful Primary Pain Nonverbal Response Appears restful Pain Scale Type 0-10 Pain scale Nail Bed Color [place] Capillary Refill < 2 seconds Heart Sounds ICU [id number] Heart Rhythm Regular Dorsalis Pedis Pulse, Left 1+ Thready Dorsalis Pedis Pulse, Right 1+ Thready Radial Pulse, Left 2+ Normal Radial Pulse, Right 2+ Normal Leg edema Edema Ratin+ mild/4mm Cardiac Rhythm Sinus tachycardia Monitoring Lead II, V1/MCL1 Alarms On and Functional Yes Heart Rate Alarm Set At - Low 50 Heart Rate Alarm Set At - High 120 Respiratory Symptoms Difficulty breathing with activity Respirations Unlabored Respiratory Pattern Regular Breath Sounds Auscultated Anterior and posterior All Lobes Breath Sounds Diminished Cough Occasional, Productive Oxygen Therapy Nasal cannula 0L-6L Oxygen Saturation 100 % Oxygen Flow Rate 2 Abdomen Description Non-distended Abdomen Palpation Non-Tender, Soft Bowel Sounds All Quadrants Present Urinary Elimination Voiding, no difficulties Facial Movement Makes facial grimaces, Symmetric resting/crying Skin Symptoms Bruising All Extremity Description Normal for ethnicity Skin Temperature Warm Temperature All Extremities Warm Skin Description Normal for ethnicity, Dry Skin Integrity Not intact Skin Turgor Non-Elastic Mucous Membrane Color [place] Mucous Membrane Description Moist Sensory Perception [place] Slightly limited Moisture [place] Rarely moist Activity Haroon Walks occasionally Mobility Har[place] Slightly limited Nutrition Haroon Adequate Friction and Shear Haroon No apparent problem Haroon Score 19 Hospital Acquired Pressure Injury Risk None/minimal risk (score 19-23) Groin Right Skin Abnormality Type: Procedure site Wound Status: No complications Groin Bilateral Skin Abnormality Type: Excoriation Incision, Wound Dressing: Open to air Wound Status: No complications Implanted port Right 19g 08/01/2022 Central IV Activity: Assessed Central IV Number of Lumens: Single Central IV Patency Proximal Port: Flushes easily, 20ml normal saline flush Central IV Dressing Condition: Clean, Dry, Intact Central IV Dressing / Activity: Port CHG dressing with proper placement Central IV Line Care: Alcohol port cap(s) in place Central IV Site Condition: No complications Central IV Equipment: PRN Adaptor Wrist Right 08/02/2022 20 gauge Peripheral IV Activity: Assessed Peripheral IV Dressing Condition: Clean, Dry, Intact Peripheral IV Dressing Activity: Transparent dressing Peripheral IV Line Status/Patency: Flushes easily, 10ml normal saline flush Peripheral IV Site Condition: No complications Peripheral IV Equipment: PRN Adaptor Neurological Language Able to speak clearly, Follows simple commands Neurological Symptoms Patient denies Gait Unable to assess Extremity Movement Equal Swallowing Difficulty None Characteristics of Communication Appropriate Characteristics of Speech Clear Facial Symmetry Symmetric Level of Consciousness Alert Aspiration Risk None Eye Opening Response [place] Spontaneously Best Motor Response Dominga Obeys simple commands Best Verbal Response Norton Oriented Norton Coma Score 15 GERMAN Yes Left Pupil Description Regular, Round Right Pupil Description Regular, Round Left Pupil Reaction Brisk Right Pupil Reaction Brisk Pupil Size, Left 3 mm Pupil Size, Right 3 mm Strength All Extremities Moderate Left Upper Extremity Sensation Intact Right Upper Extremity Sensation Intact Left Lower Extremity Sensation Intact Right Lower Extremity Sensation Intact CN V Facial Sensation Light touch equal bilaterally CN VII Facial Expression and Symmetry Facial movement symmetrical CN VIII Hearing Spoken word equally audible left/right CN IX, X Swallowing, Gag Reflex Swallowing present Campa Screen Daily History of Fall in Last 3 Months Campa No Presence of Secondary Diagnosis [place] Yes Use of Ambulatory Aid [place] None, bedrest, wheelchair, nurse IV/PRN Adapter Fall Risk [place] Yes Gait Weak or Impaired Fall Risk [place] Normal, bedrest, immobile Mental Status Fall Risk [place] Oriented to own ability [place] Fall Risk Score 35 Violence Risk Confused No Violence Risk Irritable No Violence Risk Boisterous No Violence Risk Verbal Threats No Violence Risk Physical Threats No Violence Risk Attacking Objects No Violence Risk Predictor Score 0 Violence Risk Intervention None Violence Risk Current Interventions None Affect/Behavior Appropriate, Calm, Cooperative Orientation Oriented x 4 BMAT Existing Patient Condition/Safety No order for Strict Bedrest BMAT Level 1: Sit and Shake Sit, side bed/reach midline/shake hands BMAT Level 2: Stretch and Point Seated position, straighten 1 knee; Flex ankle & point toes BMAT Level 3: Stand Patient unable BMAT Mobility Level 2 Activity Status ADL Remains up in chair Standard Safety ID band on, Allergy Band on, Call device within reach, Bed in low position, Wheels locked, Upper/Half-Length side-rails up, Phone within reach, personal items within reach, Assistive devices within reach, Safety level maintained High Risk Safety Room check performed Demonstrates Correct Call Light Use Yes 08/09/2022 7:25 EDT Bed Bath Minimum assistance Skin Care Done Skin Care Product Applied Shampoo cap, CHG bath Sachi Care Minimum assistance Linen Change Patient refused 08/09/2022 7:16 EDT Oxygen Therapy Nasal cannula 0L-6L Oxygen Activity Oxygen On Oxygen Flow Rate 2 08/09/2022 4:23 EDT WBC 10.6 10^3/mcL RBC 3.99 10^6/mcL LOW Hgb 12.8 G/dL LOW Hct 39.2 % LOW MCV 98.2 fL MCH 32.0 pg MCHC 32.6 G/dL RDW 14.4 % Platelet 249 10^3/mcL MPV 8.0 fL Neutrophil % 68.4 % Lymphocyte % 14.7 % LOW Monocyte % 13.3 % HI Eosinophil % 2.7 % Basophil % 0.9 % Neutrophil, Absolute 7.3 10^3/mcL Lymphocyte, Absolute 1.6 10^3/mcL Monocyte, Absolute 1.4 10^3/mcL Eosinophil, Absolute 0.3 10^3/mcL Basophil, Absolute 0.1 10^3/mcL Glucose Level 107 mg/dL Sodium Level 136 mEq/L Potassium Level 4.7 mEq/L Chloride 103 mEq/L CO2 32 mEq/L Electrolyte Balance 1.0 mEq/L LOW BUN 24.0 mg/dL HI Creatinine Lvl (s) 1.24 mg/dL BUN/Creatinine Ratio 19.4 ratio Calcium Lvl 8.5 mg/dL LOW Magnesium Lvl 1.8 mg/dL GFR Non- >60 ml/min/1.73sqm NA GFR >60 ml/min/1.73sqm NA Creatinine Clearance Calc 76.05 mL/min 08/09/2022 4:17 EDT Temperature Oral 36.8 DegC Heart Rate Monitored 127 bpm HI Respiratory Rate 18 br/min Systolic Blood Pressure Non-Invasive 120 mmHg Diastolic Blood Pressure Non-Invasive 86 mmHg Mean Arterial Pressure (NBP) 97 mmHg Reason For Taking VItal Signs Routine Primary Pain Intensity 0 Primary Pain Nonverbal Response Nods No Pain Scale Type 0-10 Pain scale Nail Bed Color [place] Capillary Refill < 2 seconds Dorsalis Pedis Pulse, Left 1+ Thready Dorsalis Pedis Pulse, Right 1+ [place] Radial Pulse, Left 2+ Normal Radial Pulse, Right 2+ Normal Leg edema Edema Ratin+ mild/4mm Cardiac Rhythm Sinus tachycardia Monitoring Lead II, V1/MCL1 Alarms On and Functional Yes Heart Rate Alarm Set At - Low 50 Heart Rate Alarm Set At - High 120 Respirations Unlabored Respiratory Pattern Regular Breath Sounds Auscultated Anterior only All Lobes Breath Sounds Diminished Cough Productive Sputum Amount Small Sputum Color Blood-Tinged Sputum Consistency Thick Oxygen Therapy Nasal cannula 0L-6L Oxygen Saturation 99 % Oxygen Flow Rate 2 Abdomen Description Non-distended, Symmetric, Soft Abdomen Palpation Non-Tender Bowel Sounds All Quadrants Present Urinary Elimination Voiding, no difficulties Urine Color Yellow Urine Description Clear Facial Movement Makes facial grimaces Skin Symptoms Bruising All Extremity Description [place], Normal for ethnicity Skin Temperature Warm Temperature All Extremities Warm Skin Description [place], Dry Skin Integrity Not intact Skin Turgor Non-Elastic Mucous Membrane Color [place] Mucous Membrane Description Moist Continuous IV Infusions Adapted Implanted port Right 19g 08/01/2022 Central IV Activity: Assessed Central IV Number of Lumens: Single Central IV Patency Proximal Port: Flushes easily, 10ml normal saline flush, Aspirated, Good blood return Central IV Dressing Condition: Clean, Dry, Intact Central IV Dressing / Activity: Port CHG dressing with proper placement Central IV Line Care: Alcohol port cap(s) in place, Alcohol port cap(s) changed Central IV Site Condition: No complications Central IV Equipment: PRN Adaptor Wrist Right 08/02/2022 20 gauge Peripheral IV Activity: Assessed Peripheral IV Dressing Condition: Clean Peripheral IV Dressing Activity: Transparent dressing Peripheral IV Line Status/Patency: Flushes easily Peripheral IV Site Condition: No complications Peripheral IV Equipment: PRN Adaptor Neurological Language Able to speak clearly, Follows simple commands Neurological Symptoms Patient denies Gait Steady Extremity Movement Equal Swallowing Difficulty None Characteristics of Communication Appropriate Characteristics of Speech Clear Facial Symmetry Symmetric Level of Consciousness Alert Aspiration Risk None Eye Opening Response Dominga Spontaneously Best Motor Response Dominga Obeys simple commands Best Verbal Response Norton Oriented Norton Coma Score 15 GERMAN Yes Left Pupil Description Regular Right Pupil Description Regular Left Pupil Reaction Brisk Right Pupil Reaction Brisk Pupil Size, Left 3 mm Pupil Size, Right 3 mm Strength All Extremities Moderate Left Upper Extremity Sensation Intact Right Upper Extremity Sensation Intact Left Lower Extremity Sensation Intact Right Lower Extremity Sensation Intact CN VII Facial Expression and Symmetry Facial movement symmetrical CN VIII Hearing Spoken word equally audible left/right CN IX, X Swallowing, Gag Reflex Swallowing present Violence Risk Confused No Violence Risk Irritable No Violence Risk Boisterous No Violence Risk Verbal Threats No Violence Risk Physical Threats No Violence Risk Attacking Objects No Violence Risk Predictor Score 0 Violence Risk Intervention None Violence Risk Current Interventions None Affect/Behavior Appropriate, Calm, Cooperative Orientation Oriented x 4 Orientation Assessment Oriented x 4 Activity Status ADL Remains up in chair, Repositions self Beds/Devices bariatric bed Assistive Equipment elevated on pillows Activity Assistance Moderate assistance Standard Safety ID band on, Allergy Band on, Call device within reach, Bed in low position, Wheels locked, Upper/Half-Length side-rails up, Phone within reach, personal items within reach, Bedside Cart Locked, Safety level maintained High Risk Safety Room check performed Demonstrates Correct Call Light Use Yes Degrees Head of Bed Elevated 30 08/09/2022 4:12 EDT Patient Tolerance BiPAP/CPAP on stand-by 08/09/2022 2:03 EDT Pain Scale Assessment PAINAD Primary Pain Location Lower back Primary Pain Intensity 2 Reason for PRN medication Pain management PRN medication effectiveness Partial PRN Medication Effectiveness Evaluation PRN Medication Effectiveness Evaluation 08/09/2022 1:09 EDT Rise Time 2 second(s) Respiratory Rate Total 24 br/min Noninvasive Frequency, Mandatory 8 br/min Noninvasive FiO2 30 % Noninvasive Tidal Volume, Exhaled 0.595 L Noninvasive Minute Volume 15.2 L/min Non-Invasive Inspiratory Time (IT) 0.8 second(s) Mask/ETT Selection 1 Exhalation port selection Other: Non Invasive On and Functional Yes Non Invasive Vent Apnea 20 second(s) Non InvasiveVent Low Pressure/Disconnect 8 cmH20 Non InvasiveVent High Pressure 26 cmH20 Non InvasiveVent Low Rate 8 br/min Non InvasiveVent High Rate 40 br/min Non InvasiveVent Low Minute Volume 2 L/min BiPAP/CPAP Mode BiPAP BiPAP/CPAP Machine Model Conjectur V60 BiPAP/CPAP Machine ID [id number] Estimated Leak 7 L/min Mask/Delivery Type Full face mask Mask Size Large Patient Tolerance BiPAP/CPAP Well Nares Condition on BIPAP/CPAP No breakdown noted Inspiratory Pressure 15 cmH20 Expiratory Pressure 8 cmH20 BIPAP/CPAP Daily Charge BIPAP on 08/09/2022 1:03 EDT Apical Heart Rate 129 bpm >HHI Primary Pain Intensity 7 Oxygen Therapy BiPAP metoprolol 100 mg mg oxyCODONE 10 mg mg 08/09/2022 0:53 EDT Temperature Oral 37.1 DegC Peripheral Pulse Rate 132 bpm >HHI Respiratory Rate 18 br/min Systolic Blood Pressure Non-Invasive 124 mmHg Diastolic Blood Pressure Non-Invasive 78 mmHg Primary Pain Location Lower back Primary Pain Intensity 7 Primary Pain Pharma Intervention Medication Primary Pain Non-Pharma Intervention Repositioning, Rest Pain Scale Type 0-10 Pain scale Monitor Alarms On and Limits Checked Nail Bed Color [place] Capillary Refill < 2 seconds Heart Sounds ICU S1S2 Heart Rhythm Regular Leg edema Edema Ratin+ mild/4mm Cardiac Rhythm Sinus tachycardia Monitoring Lead II, V1/MCL1 Alarms On and Functional Yes Heart Rate Alarm Set At - Low 50 Heart Rate Alarm Set At - High 120 Respiratory Symptoms Difficulty breathing with activity Respirations Unlabored Respiratory Pattern Regular Breath Sounds Auscultated Posterior only All Lobes Breath Sounds Diminished Cough Productive Sputum Amount Small Sputum Color Clear, Blood-Tinged Sputum Consistency Thick Oxygen Therapy Nasal cannula 0L-6L Oxygen Saturation 98 % Oxygen Flow Rate 2 Urinary Elimination Voiding, no difficulties Urine Color Yellow Urine Description Clear All Extremity Description [place] Temperature All Extremities Warm Skin Description [place], Dry Mucous Membrane Color [place] Mucous Membrane Description Moist Implanted port Right 19g 08/01/2022 Central IV Activity: Assessed Central IV Number of Lumens: Single Central IV Patency Proximal Port: Flushes easily, 10ml normal saline flush, Good blood return Central IV Dressing Condition: Clean, Dry, Intact Central IV Dressing / Activity: Port CHG dressing with proper placement Central IV Line Care: Alcohol port cap(s) in place Central IV Site Condition: No complications Central IV Equipment: PRN Adaptor Wrist Right 08/02/2022 20 gauge Peripheral IV Activity: Assessed Peripheral IV Dressing Condition: Clean, Dry, Intact Peripheral IV Dressing Activity: Transparent dressing Peripheral IV Line Status/Patency: Flushes easily, 3ml normal saline flush Peripheral IV Site Condition: No complications Peripheral IV Equipment: PRN Adaptor Neurological Language Able to speak clearly Neurological Symptoms Patient denies Gait Unable to assess Extremity Movement Equal Swallowing Difficulty None Characteristics of Communication Appropriate Characteristics of Speech Clear Facial Symmetry Symmetric Level of Consciousness Alert Aspiration Risk None Strength All Extremities Moderate Left Upper Extremity Sensation Intact Right Upper Extremity Sensation Intact Left Lower Extremity Sensation Intact Right Lower Extremity Sensation Intact Activity Status ADL Remains up in chair Standard Safety Safety level maintained High Risk Safety Room check performed Demonstrates Correct Call Light Use Yes 08/08/2022 23:00 EDT Post Void Residual 325 mL Urine Voided 500 mL Urine Voided 800 mL 08/08/2022 21:54 EDT Mechanical VTE Prophylaxis Education Not Done: Task Duplication (Not Done) Mechanical VTE Prophylaxis Education Not Done: Task Duplication (Not Done) Mechanical VTE Prophylaxis Education Not Done: Task Duplication (Not Done) Able To Drink Order Detail Not Done: Task Duplication (Not Done) Able To Sign Consents Order Detail Not Done: Task Duplication (Not Done) Code Status Order Detail Not Done: Task Duplication (Not Done) IV Order Detail Not Done: Task Duplication (Not Done) Dialysis Schedule Order Detail Not Done: Task Duplication (Not Done) Has Diabetes Order Detail Not Done: Task Duplication (Not Done) Isolation Precautions Order Detail Not Done: Task (more content not included)... [id number] Consult note Patient: LYNDSAY LOPEZ Age: 42 years Sex: Male : 1980 Associated Diagnoses: None Author: MAR BERNARD MD Postoperative Information Post Operative Info: Post op day: Post Anesthesia Care Unit. Patient location: OR Holding. Assessment Postanesthesia assessment Vitals: Vital signs from flowsheet : Vital Signs 08/09/2022 11:19 EDT Heart Rate Monitored 122 bpm HI Respiratory Rate 20 br/min Systolic Blood Pressure Non-Invasive 124 mmHg Diastolic Blood Pressure Non-Invasive 98 mmHg HI Blood Pressure Method Automatic Blood Pressure Location Left arm 08/09/2022 11:15 EDT Heart Rate Monitored 122 bpm HI Respiratory Rate 20 br/min Systolic Blood Pressure Non-Invasive 113 mmHg Diastolic Blood Pressure Non-Invasive 87 mmHg Blood Pressure Method Automatic Blood Pressure Location Left arm 08/09/2022 11:13 EDT Systolic Blood Pressure Non-Invasive 102 mmHg mmHg Diastolic Blood Pressure Non-Invasive 73 mmHg mmHg 08/09/2022 11:10 EDT Heart Rate Monitored 122 bpm bpm 08/09/2022 11:09 EDT Systolic Blood Pressure Non-Invasive 96 mmHg mmHg Diastolic Blood Pressure Non-Invasive 78 mmHg mmHg 08/09/2022 11:06 EDT Systolic Blood Pressure Non-Invasive 95 mmHg mmHg Diastolic Blood Pressure Non-Invasive 65 mmHg mmHg 08/09/2022 11:05 EDT Heart Rate Monitored 120 bpm bpm 08/09/2022 11:04 EDT Systolic Blood Pressure Non-Invasive 91 mmHg mmHg Diastolic Blood Pressure Non-Invasive 62 mmHg mmHg 08/09/2022 11:00 EDT Heart Rate Monitored 124 bpm bpm Systolic Blood Pressure Non-Invasive 90 mmHg mmHg Diastolic Blood Pressure Non-Invasive 72 mmHg mmHg 08/09/2022 10:57 EDT Systolic Blood Pressure Non-Invasive 93 mmHg mmHg Diastolic Blood Pressure Non-Invasive 72 mmHg mmHg 08/09/2022 10:55 EDT Heart Rate Monitored 123 bpm bpm Systolic Blood Pressure Non-Invasive 97 mmHg mmHg Diastolic Blood Pressure Non-Invasive 69 mmHg mmHg 08/09/2022 10:51 EDT Systolic Blood Pressure Non-Invasive 112 mmHg mmHg Diastolic Blood Pressure Non-Invasive 88 mmHg mmHg 08/09/2022 10:50 EDT Heart Rate Monitored 123 bpm bpm 08/09/2022 10:49 EDT Systolic Blood Pressure Non-Invasive 97 mmHg mmHg Diastolic Blood Pressure Non-Invasive 82 mmHg mmHg 08/09/2022 10:45 EDT Heart Rate Monitored 126 bpm bpm Systolic Blood Pressure Non-Invasive 142 mmHg mmHg Diastolic Blood Pressure Non-Invasive 101 mmHg mmHg 08/09/2022 10:42 EDT Systolic Blood Pressure Non-Invasive 126 mmHg mmHg Diastolic Blood Pressure Non-Invasive 90 mmHg mmHg 08/09/2022 10:40 EDT Heart Rate Monitored 126 bpm bpm 08/09/2022 8:03 EDT Apical Heart Rate 128 bpm >HHI 08/09/2022 7:49 EDT Temperature Oral 36.9 DegC Heart Rate Monitored 128 bpm HI Respiratory Rate 18 br/min Systolic Blood Pressure Non-Invasive 121 mmHg Diastolic Blood Pressure Non-Invasive 85 mmHg Mean Arterial Pressure (NBP) 98 mmHg Reason For Taking VItal Signs Routine 08/09/2022 4:17 EDT Temperature Oral 36.8 DegC Heart Rate Monitored 127 bpm HI Respiratory Rate 18 br/min Systolic Blood Pressure Non-Invasive 120 mmHg Diastolic Blood Pressure Non-Invasive 86 mmHg Mean Arterial Pressure (NBP) 97 mmHg Reason For Taking VItal Signs Routine 08/09/2022 1:03 EDT Apical Heart Rate 129 bpm >HHI 08/09/2022 0:53 EDT Temperature Oral 37.1 DegC Peripheral Pulse Rate 132 bpm >HHI Respiratory Rate 18 br/min Systolic Blood Pressure Non-Invasive 124 mmHg Diastolic Blood Pressure Non-Invasive 78 mmHg 08/08/2022 20:14 EDT Temperature Oral 36.8 DegC Heart Rate Monitored 128 bpm HI Respiratory Rate 20 br/min Systolic Blood Pressure Non-Invasive 144 mmHg HI Diastolic Blood Pressure Non-Invasive 80 mmHg Mean Arterial Pressure (NBP) 98 mmHg Reason For Taking VItal Signs Routine 08/08/2022 16:13 EDT Apical Heart Rate 131 bpm >HHI 08/08/2022 16:10 EDT Heart Rate Monitored 126 bpm HI Respiratory Rate 20 br/min Systolic Blood Pressure Non-Invasive 114 mmHg Diastolic Blood Pressure Non-Invasive 69 mmHg Mean Arterial Pressure (NBP) 83 mmHg Reason For Taking VItal Signs Routine 08/08/2022 13:46 EDT Heart Rate Monitored 128 bpm HI 08/08/2022 11:42 EDT Temperature Oral 36.5 DegC Heart Rate Monitored 126 bpm HI Respiratory Rate 20 br/min Systolic Blood Pressure Non-Invasive 112 mmHg Diastolic Blood Pressure Non-Invasive 39 mmHg Mean Arterial Pressure (NBP) 62 mmHg 08/08/2022 9:45 EDT Apical Heart Rate 129 bpm >HHI 08/08/2022 9:16 EDT Temperature Oral 36.7 DegC Heart Rate Monitored 126 bpm HI Respiratory Rate 20 br/min Systolic Blood Pressure Non-Invasive 115 mmHg Diastolic Blood Pressure Non-Invasive 81 mmHg Mean Arterial Pressure (NBP) 92 mmHg Reason For Taking VItal Signs Routine 08/08/2022 4:15 EDT Temperature Oral 36.8 DegC Heart Rate Monitored 127 bpm HI Respiratory Rate 20 br/min Systolic Blood Pressure Non-Invasive 129 mmHg Diastolic Blood Pressure Non-Invasive 81 mmHg Mean Arterial Pressure (NBP) 95 mmHg 08/08/2022 0:19 EDT Apical Heart Rate 128 bpm >HHI 08/08/2022 0:15 EDT Heart Rate Monitored 129 bpm HI Respiratory Rate 21 br/min HI Systolic Blood Pressure Non-Invasive 133 mmHg Diastolic Blood Pressure Non-Invasive 88 mmHg Reason For Taking VItal Signs Routine , Oxygen Therapy : Oxygen Therapy & Oxygenation Information 08/09/2022 11:19 EDT Oxygen Therapy Venti-Mask Oxygen Saturation 99 % Oxygen Flow Rate 8 08/09/2022 11:15 EDT Oxygen Therapy Venti-Mask Oxygen Saturation 99 % Oxygen Flow Rate 10 08/09/2022 11:10 EDT Oxygen Saturation 97.8 % % 08/09/2022 11:05 EDT Oxygen Saturation 78.3 % % 08/09/2022 11:00 EDT Oxygen Saturation 97.2 % % 08/09/2022 10:55 EDT Oxygen Saturation 92.6 % % 08/09/2022 10:50 EDT Oxygen Saturation 97.7 % % 08/09/2022 10:45 EDT Oxygen Saturation 100 % % 08/09/2022 10:40 EDT Oxygen Saturation 99.1 % % 08/09/2022 10:35 EDT Oxygen Saturation 98.8 % % 08/09/2022 7:49 EDT Oxygen Therapy Nasal cannula 0L-6L Oxygen Saturation 100 % Oxygen Flow Rate 2 08/09/2022 7:16 EDT Oxygen Therapy Nasal cannula 0L-6L Oxygen Activity Oxygen On Oxygen Flow Rate 2 08/09/2022 4:17 EDT Oxygen Therapy Nasal cannula 0L-6L Oxygen Saturation 99 % Oxygen Flow Rate 2 08/09/2022 1:09 EDT Inspiratory Pressure 15 cmH20 Expiratory Pressure 8 cmH20 08/09/2022 1:03 EDT Oxygen Therapy BiPAP 08/09/2022 0:53 EDT Oxygen Therapy Nasal cannula 0L-6L Oxygen Saturation 98 % Oxygen Flow Rate 2 08/08/2022 20:14 EDT Oxygen Therapy Nasal cannula 0L-6L Oxygen Saturation 99 % Oxygen Flow Rate 2 08/08/2022 16:10 EDT Oxygen Therapy Nasal cannula 0L-6L Oxygen Saturation 99 % Oxygen Flow Rate 2 08/08/2022 13:46 EDT Oxygen Saturation 94 % 08/08/2022 11:42 EDT Oxygen Therapy Nasal cannula 0L-6L Oxygen Saturation 93 % Oxygen Flow Rate 2 08/08/2022 9:16 EDT Oxygen Therapy Nasal cannula 0L-6L Oxygen Saturation 92 % LOW Oxygen Flow Rate 2 08/08/2022 7:11 EDT Oxygen Therapy Nasal cannula 0L-6L Oxygen Activity Oxygen On Oxygen Flow Rate 2 08/08/2022 4:15 EDT Oxygen Therapy Humidification, Nasal cannula 0L-6L Oxygen Saturation 100 % Oxygen Flow Rate 2 08/08/2022 4:05 EDT Inspiratory Pressure 15 cmH20 Expiratory Pressure 8 cmH20 08/08/2022 0:15 EDT Oxygen Therapy BiPAP Oxygen Saturation 100 % . Mental status: at preoperative baseline. Respiratory function: respirations are non-labored, Stable. Respiratory support: none. CV function: Stable. Cardiovascular support: none. Pain: Satisfactory. Nausea status: Satisfactory. Postoperative hydration status: within normal limits. Notes: Patient is sufficiently recovered from anesthesia to participate in the evaluation. No follow-up care needed. No complications post-anesthesia.. 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 He was found toevaluate a D-dimer and CTA was performed consistent with right main pulmonary artery clot with concern for right heart strain. [facility] and admitted under MICU started on heparin by weight. Vascular surgery was consulted and underwent EKOS on 08/02/2022. Oncology on consultation for metastatic renal cancer. He was also being treated with antibiotics for possible urinary tract infection. Patient developed atrial flutter and cardiology on consultation. Patient was started on beta-nitesh and dose was gradually increased to 100 mg every 8 hours. Patient was transferred out of ICU service on 08/06/2022. Given persistent tachycardia, electrophysiology was also involved and plan is to perform BONNIE and cardioversion today. Patient seen and examined today morning at bedside. Telemetry reviewed and heart rate remains in 120s. No other acute events reported overnight. Currently on 2 L nasal oxygen. Denies any worsening shortness of breath, chest pain, palpitations. Hemoptysis seems to be improving after switching to Eliquis. Objective Vitals and Measurements T: 36.9 C (Oral) TMIN: 36.5 C (Oral) TMAX: 37.1 C (Oral) HR: 128(Apical) RR: 18 BP: 121/85 SpO2: 100% Intake and Output 7AM Yesterday to 7AM Today Intake and Output (Last 24 hours) Intake Administration Information 160.00 Oral Intake 760.00 Output Urine Voided 1625.00 Total Summary Total Intake 920.00 Total Output 1625.00 Fluid Balance -705.00 Physical Exam General: Patient is not in acute distress Neck: Supple, No JVD HEENT: Normocephalic, atraumatic, Cardiac: RRR, tachycardic S1 and S2 present, no murmurs, rubs, or gallops appreciated Lungs: Clear to auscultation bilaterally, no wheezes, rhonchi, or rales appreciated Abdomen: Morbidly obese, bowel sounds audible, abdomen is soft, nontender, non-distended, Musculoskeletal: Preserved ROM in all 4 extremities Extremities: No clubbing or cyanosis, pitting edema Skin: Warm, well perfused, no bruises Neurological: Alert and orientated x3, No gross focal neurological deficits Weight Current Weight Dosing Weight: 159 kg (08/01/22) Current Weight: 165.2 kg (08/07/22) Medications Medications (18) Active Scheduled: (10) apixaban 5 mg tablet 5 mg 1 tab(s), Oral, BID lidocaine 1% (MPF) 2 mL vial pf 2.5 mg 0.25 mL, Intradermal, prep pharm lidocaine patch REMOVAL 1 EA, Miscellaneous, q24h lidocaine topical 4% patch 1 patch(es), Transdermal, q24h magnesium sulfate 2 gram(s) 50 mL, IV Piggyback, Once menthol (Biofreeze) gel packet 1 julia, Topical, qDay metoprolol tartrate 100 mg tablet 100 mg 1 tab(s), Oral, q8h miconazole topical 2% Powder 1 julia, Topical, BID Nicoderm patch REMOVAL 1 EA, Miscellaneous, q24h nicotine 14 mg/24 hr ER patch 14 mg 1 patch(es), Transdermal, q24h Continuous: (1) Dextrose 5% with 0.45% NACL 1,000 mL 1,000 mL, Intravenous, 20 mL/hr PRN: (7) acetaminophen 325 mg Tablet 650 mg 2 tab(s), Oral, q4h melatonin 5 mg tablet 5 mg 1 tab(s), Oral, qHS ondansetron 2 mg/ 1 mL 2 mL INJ 4 mg 2 mL, IV Push, q4h oxycodone 5 mg tablet (immediate release) 5 mg 1 tab(s), Oral, q4h oxycodone 5 mg tablet (immediate release) 10 mg 2 tab(s), Oral, q4h polyethylene glycol 3350 - UD packet 17 gram(s) 15 mL, Oral, BID senna 8.6 mg Tablet 8.6 mg 1 tab(s), Oral, qDay Lab Results 08/09 04:23 WBC: 10.6 Hgb: 12.8 L Hct: 39.2 L Platelet: 249 Neutrophil %: 68.4 Glucose Level: 107 Sodium Level: 136 Potassium Level: 4.7 BUN: 24.0 H Creatinine Lvl (s): 1.24 08/08 09:33 WBC: 11.3 H Hgb: 12.7 L Hct: 39.0 L Platelet: 245 Neutrophil %: 71.8 Glucose Level: 101 Sodium Level: 137 Potassium Level: 4.8 BUN: 25.0 H Creatinine Lvl (s): 1.25 Imaging Results and Diagnostics CT Abdomen/Pelvis w/Contrast Result Date: August 04, 2022 Verified By: RAY MARTE MD CLINICAL STATEMENT: IMPRESSION: Confluent ground-glass and patchy opacities in the right middle and rightlower lobe. Correlate clinically and follow-up to resolution. No acute findings in the abdomen or pelvis. No evidence of new or recurrentdisease in the left nephrectomy bed. I have personally reviewed the images ofthis examination and agree with theresident's findings and interpretation. XR Chest 1 View Result Date: August 04, 2022 Verified By: ANDI TINOCO MD CLINICAL STATEMENT: IMPRESSION: Mild right atelectasis and or consolidation, also seen on the comparison. XR Chest 1 View Result Date: August 03, 2022 Verified By: CLINICAL STATEMENT: IMPRESSION: Ill-defined hazy opacification in the right lower lung. Considerationsinclude sequelae of pulmonary infarct as well as subsegmental atelectasis.Infectious/inflammatory etiologies are considered less likely especiallygiven current clinical picture. Preliminary Report was Dictated bya Resident Preliminary Report By: Trenton Cannon Dictated Time: 08/03/2022 6:55:11 AM PrelimTime: 08/03/2022 7:02:37 AM Ordering Provider: IVAN SAMS nodes 10-14 mm short axis,immeasurablelesions such as lymphangitic involvement, ascites, pleuraleffusions, etc.):? Unchanged lytic lesionwith pathological compression deformity at T11. Worsening areas of right lung base ground-glass andconsolidative opacitiesin comparison to CT thorax 08/01/2022. Liver, gallbladder, spleen, pancreas and adrenal glands are unremarkable. Right kidney is unremarkable. No hydronephrosis or urolithiasis. Patient isstatus post left nephrectomy. No new or residual disease noted in thenephrectomy bed. Uri nary bladder is unremarkable. Unremarkable prostate. Small bowel, colon and appendix are normal in caliber. There is no definitebowel wall thickening, intraperitoneal free air or focal fluid collection. Prominent subcentimeter stable celiac axis and portal caval lymph nodes arenonspecific. No pathologic lymphadenopathy. Nonaneurysmal abdominal aorta. No acute fracture. Unchanged lytic lesion pathological compression deformityat T11. Mild anasarca. Left lateral lumbar hernia containing a fewnonobstructed loops of bowel. IMPRESSION:Confluent ground-glass and patchy opacities in the right middleand rightlower lobe. Correlate clinically and follow-up to resolution. No acute findings in the abdomen or pelvis. No evidence of new or recurrentdisease in the left nephrectomy bed. I have personally reviewed the images of this examination and agree with theresident's findings and interpretation. IR Pulmonary Angio/EKOS Cath Place Result Date: August 02, 2022 Verified By: CLINICAL STATEMENT: IMPRESSION: XR Chest 1 View Result Date: August 02, 2022 Verified By: JANICE MITCHELL MD CLINICAL STATEMENT: IMPRESSION: Right infrahilar hazy opacifications likely on the basis of subsegmentalatelectasis. A developing infectious/inflammatory etiology cannot be ruledout however. I have personally reviewed the images of this examination and agree with theresident's findings and interpretation. EKG No qualifying data available. Assessment/Plan Acute hypoxic and hypercapnic respiratory failure Pulmonary embolism of right main pulmonary artery status post EKOS 08/02/2022 Atrial flutter Hemoptysis Hyponatremia resolved Possible UTI completed antibiotic course Leukocytosis resolved Metastatic renal cell carcinoma Morbid obesity Possible AKHIL pending sleep study Tobacco and alcohol use Plan: 1. Regarding acute hypoxic respiratory failure/pulmonary embolism Patient underwent EKOS on 08/02/2022. Currently on 2 L nasal cannula oxygen. After discussing with hematology/oncology and cardiology, patient was transitioned to apixaban 5 mgtwice daily. Patient seems almost 1 week of IV heparin by weight during the stay. Continue to wean off oxygen as tolerated. He was experiencing he notices that seems to be improving after transition to oral anticoagulation. 2. Regarding atrial flutter, Cardiology/EP following. Dose of beta-nitesh was increased to 100 mg 3 times daily. Remains tachycardic with heart rates in 130s. Plan for BONNIE with cardioversion today followed by antiarrhythmic as per EP. Appreciate input from cardiology/EP. 3. Regarding UTI Patient completed antibiotics for possible UT during his MICU stay.. Denies any current symptoms of UTI. 4. Regarding metastatic renal cell carcinoma, hematology/oncology following. Patient currently on nivolumab that is being held this week. 5. BiPAP for underlying suspected obstructive sleep apnea as per pulmonology. Patient is scheduled for sleep study next month. 6. 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 Plan of care discussed with patient at bedside. Digitally Signed by MIKE RIVERA MD on 08/09/2022 01:51 PM [id number] Oncology Progress note Subjective Pain and shortness of breath improved Patient started eating better Weakness Objective Vitals and Measurements T: 36.8 C (Oral) TMIN: 36.5 C (Oral) TMAX: 36.8 C (Oral) HR: 128(Monitored) RR: 20 BP: 144/80 SpO2:99% Intake and Output 7AM Yesterday to 7AM Today Intake and Output (Last 24 hours) Intake Administration Information 482.00 Oral Intake 1240.00 Output Urine Voided 1925.00 Total Summary Total Intake 1722.00 Total Output 1925.00 Fluid Balance -203.00 Physical Exam In no apparent distress 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 Respiratory: No breathing difficulty Weight Current Weight Dosing Weight: 159 kg (08/01/22) Current Weight: 165.2 kg (08/07/22) Medications Medications (17) Active Scheduled: (9) apixaban 5 mg tablet 5 mg 1 tab(s), Oral, BID lidocaine 1% (MPF) 2 mL vial pf 2.5 mg 0.25 mL, Intradermal, prep pharm lidocaine patch REMOVAL 1 EA, Miscellaneous, q24h lidocaine topical 4% patch 1 patch(es), Transdermal, q24h menthol (Biofreeze) gel packet 1 julia, Topical, qDay metoprolol tartrate 100 mg tablet 100 mg 1 tab(s), Oral, q8h miconazole topical 2% Powder 1 julia, Topical, BID Nicoderm patch REMOVAL 1 EA, Miscellaneous, q24h nicotine 14 mg/24 hr ER patch 14 mg 1 patch(es), Transdermal, q24h Continuous: (1) Dextrose 5% with 0.45% NACL 1,000 mL 1,000 mL, Intravenous, 20 mL/hr PRN: (7) acetaminophen 325 mg Tablet 650 mg 2 tab(s), Oral, q4h melatonin 5 mg tablet 5 mg 1 tab(s), Oral, qHS ondansetron 2 mg/ 1 mL 2 mL INJ 4 mg 2 mL, IV Push, q4h oxycodone 5 mg tablet (immediate release) 5 mg 1 tab(s), Oral, q4h oxycodone 5 mg tablet (immediate release) 10 mg 2 tab(s), Oral, q4h polyethylene glycol 3350 - UD packet 17 gram(s) 15 mL, Oral, BID senna 8.6 mg Tablet 8.6 mg 1 tab(s), Oral, qDay Lab Results 08/08 09:33 WBC: 11.3 H Hgb: 12.7 L Hct: 39.0 L Platelet: 245 Neutrophil %: 71.8 Glucose Level: 101 Sodium Level: 137 Potassium Level: 4.8 BUN: 25.0 H Creatinine Lvl (s): 1.25 08/07 19:14 Protime: 15.1 H PT International Ratio: 1.3 EKG EKG - Completed -- 08/07/22 12:47:00 EDT Assessment/Plan Renal cancer Oncology consultation for metastatic renal cell carcinoma Patient was admitted to the hospital on account of increasing shortness of breath and chest discomfort in the right second CT angiogram of the chest showed large pulmonary emboli in the right distal main artery and distal branches on the right side. Evidence of right heart strain was seen. 08/02/2022: Dr. Cordon performed EKOS catheter based thrombolysis of the right pulmonary artery thrombus Patient was treated with heparin. Patient was now on apixaban Patient has stage IV renal cell carcinoma Metastatic renal cell carcinoma. S/P Left cytoreductive nephrectomy 08/14/20. Final path - ccRCC withsarcomatoid features. Metastatic renal cell carcinoma Patient is receiving nivolumab Stable disease Continue IV heparin Later on changed to oral anticoagulant Immunotherapy will be held this week. 08/04/2022: CT scan of abdomen and pelvis did not show any evidence of cancer progression Patient's case was discussed with Dr. Sepulveda from cardiology He is being treated for tachycardia There are plans to perform cardioversion tomorrow. Patient still had tachycardia He was feeling more comfortable Digitally Signed by BHAVIK TRIANA MD on 08/08/2022 08:57 PM [id number] Note Date of Service 08/08/2022 Chief Complaint Acute hypoxic and hypercapnic respiratory, atrial flutter Subjective Patient is a 42-year-old gentleman with past medical history significant for metastatic renal cell carcinoma, (status post left nephrectomy 08/2020, radiation, ipilimumab, nivolumab), T11 vertebral body fracture due to lytic bone lesion, likely AKHIL pending sleep study who presented from outside hospital on 08/01/2022 with chief complaint of shortness of breath as well as chest pain. He was found toevaluate a D-dimer and CTA was performed consistent with right main pulmonary artery clot with concern for right heart strain. He was transferred to [facility] and admitted under MICU started on heparin by weight. Vascular surgery was consulted and underwent EKOS on 08/02/2022. Oncology on consultation for metastatic renal cancer. He was also being treated with antibiotics for possible urinary tract infection. Patient developed atrial flutter and cardiology on consultation. Patient was started on beta-nitesh and dose was gradually increased to 100 mg every 8 hours. Given persistent tachycardia, electrophysiology was also involved and plan is to perform BONNIE and cardioversion. Patient was transferred out of ICU service on 08/06/2022. Patient seen and examined today morning at bedside. No acute events reported overnight. Currently requiring 2 L nasal cannula oxygen. Does experience occasional chest pain that is multifactorial from his pulm infarction and musculoskeletal in nature. Heart rate remains in the 130s and currently n.p.o. for BONNIE cardioversion today. Denies any palpitations, worsening shortness of breath, worsening cough however is experiencing occasional episodes of hemoptysis. Objective Vitals and Measurements T: 36.8 C (Oral) TMIN: 36.8 C (Oral) TMAX: 37 C (Oral) HR: 127(Monitored) RR: 20 BP: 129/81 SpO2: 100% WT: 165.2 kg Intake and Output 7AM Yesterday to 7AM Today Intake and Output (Last 24 hours) Intake Administration Information 322.00 Oral Intake 480.00 Output Urine Voided 2900.00 Stool Count 1.00 Total Summary Total Intake 802.00 Total Output 2900.00 Fluid Balance -2098.00 Physical Exam General: Patient is not in acute distress Neck: Supple, No JVD HEENT: Normocephalic, atraumatic, Cardiac: Regular rate and rhythm, S1 and S2 present, no murmurs, rubs, or gallops appreciated Lungs: Clear to auscultation bilaterally, no wheezes, rhonchi, or rales appreciated Abdomen: Morbidly obese, bowel sounds audible, abdomen is soft, nontender, non-distended, Musculoskeletal: Preserved ROM in all 4 extremities Extremities: No clubbing or cyanosis, pitting edema Skin: Warm, well perfused, no bruises Neurological: Alert and orientated x3, No gross focal neurological deficits Weight Current Weight Dosing Weight: 159 kg (08/01/22) Current Weight: 165.2 kg (08/07/22) Medications Medications (19) Active Scheduled: (8) lidocaine 1% (MPF) 2 mL vial pf 2.5 mg 0.25 mL, Intradermal, prep pharm lidocaine patch REMOVAL 1 EA, Miscellaneous, q24h lidocaine topical 4% patch 1 patch(es), Transdermal, q24h menthol (Biofreeze) gel packet 1 julia, Topical, qDay metoprolol tartrate 100 mg tablet 100 mg 1 tab(s), Oral, q8h miconazole topical 2% Powder 1 julia, Topical, BID Nicoderm patch REMOVAL 1 EA, Miscellaneous, q24h nicotine 14 mg/24 hr ER patch 14 mg 1 patch(es), Transdermal, q24h Continuous: (2) Dextrose 5% with 0.45% NACL 1,000 mL 1,000 mL, Intravenous, 20 mL/hr heparin 25,000 unit(s) [15.723 unit(s)/kg/hr] + Dextrose 5% Premix Diluent 250 mL 250 mL, Intravenous, 25 mL/hr PRN: (9) acetaminophen 325 mg Tablet 650 mg 2 tab(s), Oral, q4h heparin 5,000 units/mL (1 mL) vial 8,750 unit(s) 1.75 mL, IV Push, q6h heparin 5,000 units/mL (1 mL) vial 6,360 unit(s) 1.27 mL, IV Push, q6h melatonin 5 mg tablet 5 mg 1 tab(s), Oral, qHS ondansetron 2 mg/ 1 mL 2 mL INJ 4 mg 2 mL, IV Push, q4h oxycodone 5 mg tablet (immediate release) 5 mg 1 tab(s), Oral, q4h oxycodone 5 mg tablet (immediate release) 10 mg 2 tab(s), Oral, q4h polyethylene glycol 3350 - UD packet 17 gram(s) 15 mL, Oral, BID senna 8.6 mg Tablet 8.6 mg 1 tab(s), Oral, qDay Lab Results 08/07 19:14 Protime: 15.1 H PT International Ratio: 1.3 08/07 05:12 WBC: 13.9 H Hgb: 12.8 L Hct: 39.0 L Platelet: 201 Neutrophil %: 77.8 H Glucose Level: 128 H Sodium Level: 133 L Potassium Level: 5.0 BUN: 28.0 H Creatinine Lvl (s): 1.25 Imaging Results and Diagnostics CT Abdomen/Pelvis w/Contrast Result Date: August 04, 2022 Verified By: RAY MARTE MD CLINICAL STATEMENT: IMPRESSION: Confluent ground-glass and patchy opacities in the right middle and rightlower lobe. Correlate clinically and follow-up to resolution. No acute findings in the abdomen or pelvis. No evidence of new or recurrentdisease in the left nephrectomy bed. I have personally reviewed the images ofthis examination and agree with theresident's findings and interpretation. XR Chest 1 View Result Date: August 04, 2022 Verified By: ANDI TINOCO MD CLINICAL STATEMENT: IMPRESSION: Mild right atelectasis and or consolidation, also seen on the comparison. XR Chest 1 View Result Date: August 03, 2022 Verified By: CLINICAL STATEMENT: IMPRESSION: Ill-defined hazy opacification in the right lower lung. Considerationsinclude sequelae of pulmonary infarct as well as subsegmental atelectasis.Infectious/inflammatory etiologies are considered less likely especiallygiven current clinical picture. Preliminary Report was Dictated bya Resident Preliminary Report By: Trenton Cannon Dictated Time: 08/03/2022 6:55:11 AM PrelimTime: 08/03/2022 7:02:37 AM Ordering Provider: IVAN SAMS nodes 10-14 mm short axis,immeasurablelesions such as lymphangitic involvement, ascites, pleuraleffusions, etc.):? Unchanged lytic lesionwith pathological compression deformity at T11. Worsening areas of right lung base ground-glass andconsolidative opacitiesin comparison to CT thorax 08/01/2022. Liver, gallbladder, spleen, pancreas and adrenal glands are unremarkable. Right kidney is unremarkable. No hydronephrosis or urolithiasis. Patient isstatus post left nephrectomy. No new or residual disease noted in thenephrectomy bed. Uri nary bladder is unremarkable. Unremarkable prostate. Small bowel, colon and appendix are normal in caliber. There is no definitebowel wall thickening, intraperitoneal free air or focal fluid collection. Prominent subcentimeter stable celiac axis and portal caval lymph nodes arenonspecific. No pathologic lymphadenopathy. Nonaneurysmal abdominal aorta. No acute fracture. Unchanged lytic lesion pathological compression deformityat T11. Mild anasarca. Left lateral lumbar hernia containing a fewnonobstructed loops of bowel. IMPRESSION:Confluent ground-glass and patchy opacities in the right middleand rightlower lobe. Correlate clinically and follow-up to resolution. No acute findings in the abdomen or pelvis. No evidence of new or recurrentdisease in the left nephrectomy bed. I have personally reviewed the images of this examination and agree with theresident's findings and interpretation. IR Pulmonary Angio/EKOS Cath Place Result Date: August 02, 2022 Verified By: CLINICAL STATEMENT: IMPRESSION: XR Chest 1 View Result Date: August 02, 2022 Verified By: JANICE MITCHELL MD CLINICAL STATEMENT: IMPRESSION: Right infrahilar hazy opacifications likely on the basis of subsegmentalatelectasis. A developing infectious/inflammatory etiology cannot be ruledout however. I have personally reviewed the images of this examination and agree with theresident's findings and interpretation. EKG EKG - Completed -- 08/07/22 12:47:00 EDT Assessment/Plan Acute hypoxic and hypercapnic respiratory failure Pulmonary embolism of right main pulmonary artery status post EKOS Atrial flutter Hemoptysis Hyponatremia Possible UTI Leukocytosis Metastatic renal cell carcinoma Morbid obesity Possible AKHIL pending sleep study Tobacco and alcohol use Plan: 1. Patient underwent EKOS on 08/02/2022. Patient remains on heparin by weight. Currently on 2 L nasal cannula oxygen. He is experiencing occasional hemoptysis likely secondary to pulmonary infarction.Anticipate improvement after switching to oral anticoagulation hopefully today after cardioversion. We will transition him to apixaban 5 mg twice daily as patient is already on heparin by weight for 1 week after the procedure. Discussed with hematology/oncology Dr. Triana. Continue to wean off oxygen as tolerated. Appreciate input from pulmonology. 2. Regarding atrial flutter, dose of beta-nitesh was increased to 100 mg 3 times daily. Toleratingwell however remains tachycardic with heart rate in 130s. Plan for BONNIE with cardioversion today followed by antiarrhythmic as per EP. Appreciate input from cardiology/EP. 3. Patient completed antibiotics for possible UTI. Denies any current symptoms of UTI. 4. Oncology following for metastatic renal carcinoma. Patient currently on nivolumab that is being held this week due to acute pulmonary embolism. 5. Continue BiPAP for underlying obstructive sleep apnea as per pulmonology. Patient is scheduled for sleep study next month. 6. Hyponatremia Pending a.m. labs. 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 Patient is high risk of clinical deterioration given multiple comorbidities, including morbid obesity, atrial flutter and new diagnosis of pulmonary embolism with right heart strain. Plan of care discussed with patient at bedside. Digitally Signed by MIKE RIVERA MD on 08/08/2022 08:59 AM [id number] Pulmonary Progress note Date of Service 08/08/2022 Chief Complaint None Subjective 42-year-old gentleman who presented to outside ED with chief complaint of shortness of breath as well as chest pain. He has a past medical history of metastatic renal cell carcinoma (status post leftnephrectomy 08/2020, radiation, ipilimumab, nivolumab), T11 vertebral body fracture due to lytic bone lesion, likely AKHIL pending sleep study . Patient admitted to [facility] acute submassive PE he is day 2 status post catheter directed thrombolysis, currently on IV heparin, still have cough productive will monitor the bloody secretions/hemoptysis Which is improving. Last 24 hours: Hemoptysis improving, cardiology plan is to proceed with BONNIE and cardioversion as patient remains in atrial fibrillation rapid ventricular rate Objective Vitals and Measurements T: 36.5 C (Oral) TMIN: 36.5 C (Oral) TMAX: 37 C (Oral) HR: 128(Monitored) RR: 20 BP: 112/39 SpO2: 94% WT: 165.2 kg Physical Exam HEENT: Clear Heart: Regular regular Lungs: Clear breath sounds bilaterally no wheezing Abdomen: Soft no tenderness Lower extremities: No edema Neuro: Alert, follows command moves all 4 extremities Weight Current Weight Dosing Weight: 159 kg (08/01/22) Current Weight: 165.2 kg (08/07/22) Medications Medications (17) Active Scheduled: (9) apixaban 5 mg tablet 5 mg 1 tab(s), Oral, BID lidocaine 1% (MPF) 2 mL vial pf 2.5 mg 0.25 mL, Intradermal, prep pharm lidocaine patch REMOVAL 1 EA, Miscellaneous, q24h lidocaine topical 4% patch 1 patch(es), Transdermal, q24h menthol (Biofreeze) gel packet 1 julia, Topical, qDay metoprolol tartrate 100 mg tablet 100 mg 1 tab(s), Oral, q8h miconazole topical 2% Powder 1 julia, Topical, BID Nicoderm patch REMOVAL 1 EA, Miscellaneous, q24h nicotine 14 mg/24 hr ER patch 14 mg 1 patch(es), Transdermal, q24h Continuous: (1) Dextrose 5% with 0.45% NACL 1,000 mL 1,000 mL, Intravenous, 20 mL/hr PRN: (7) acetaminophen 325 mg Tablet 650 mg 2 tab(s), Oral, q4h melatonin 5 mg tablet 5 mg 1 tab(s), Oral, qHS ondansetron 2 mg/ 1 mL 2 mL INJ 4 mg 2 mL, IV Push, q4h oxycodone 5 mg tablet (immediate release) 5 mg 1 tab(s), Oral, q4h oxycodone 5 mg tablet (immediate release) 10 mg 2 tab(s), Oral, q4h polyethylene glycol 3350 - UD packet 17 gram(s) 15 mL, Oral, BID senna 8.6 mg Tablet 8.6 mg 1 tab(s), Oral, qDay Lab Results 08/08 09:33 WBC: 11.3 H Hgb: 12.7 L Hct: 39.0 L Platelet: 245 Neutrophil %: 71.8 Glucose Level: 101 Sodium Level: 137 Potassium Level: 4.8 BUN: 25.0 H Creatinine Lvl (s): 1.25 08/07 19:14 Protime: 15.1 H PT International Ratio: 1.3 08/07 05:12 WBC: 13.9 H Hgb: 12.8 L Hct: 39.0 L Platelet: 201 Neutrophil %: 77.8 H Glucose Level: 128 H Sodium Level: 133 L Potassium Level: 5.0 BUN: 28.0 H Creatinine Lvl (s): 1.25 EKG EKG - Completed -- 08/07/22 12:47:00 EDT Assessment/Plan 1. Acute submassive pulmonary emboli status post catheter directed thrombolysis/EKOS. With hemoptysis due to pulm infarction 2. Obesity with probable obstructive sleep apnea. 3. Metastatic renal Carcinoma status post left-sided nephrectomy 2020, still followed by oncology. 4. A-fib/flutter. With rapid ventricular rate Plan: 1. 2 L of oxygen, nocturnal BiPAP 15/8 cmH2O for suspected obstructive sleep apnea, patient scheduled for outpatient sleep study. 3. Oral Eliquis. 3. Cardiology are following and the plan to proceed with BONNIE and cardioversion as patient remains atrial fibrillation rapid ventricular rate Digitally Signed by MIRTA WICK MD on 08/08/2022 02:08 PM [id number] Anesthesiology Consult note Patient: LYNDSAY LOPEZ Age: 42 years Sex: Male : 1980 Associated Diagnoses: None Author: NORMA DAUGHERTY DO Preoperative Information Greater than 6 hours Anesthesia history Patient's history: negative. Family's history: negative. Review of Systems Ear/Nose/Mouth/Throat: Negative except as documented in history of present illness. Respiratory: Negative except as documented in history of present illness. Cardiovascular: Negative except as documented in history of present illness. Gastrointestinal: Negative except as documented in history of present illness. Genitourinary: Negative except as documented in history of present illness. Endocrine: Negative except as documented in history of present illness. Musculoskeletal: Negative except as documented in history of present illness. Integumentary: Negative except as documented in history of present illness. Neurologic: Negative except as documented in history of present illness. Health Status Allergies: Allergic Reactions (Selected) Severity Not Documented Penicillin- Swelling., Allergies (1) ActiveReaction penicillinSwelling Current medications: (Selected) Inpatient Medications Ordered Biofreeze gel packet: Start: 08/04/22 9:00:00 EDT, Dose = 1 julia, Topical, qDay, Apply to: right lower back, Gel, 08/04/22 9:00:00 EDT D51/2NS 1,000 mL: Start: 08/07/22 12:47:00 EDT, Rate: 20 mL/hr, 08/07/22 12:47:00 EDT Heparin HBW Bolus 5000 units/mL: Start: 08/01/22 22:01:00 EDT, Dose = 6,360 unit(s), = 1.27 mL, IV Push, q6h, PRN, Protocol, Weight Based Heparin, 08/01/22 22:01:00 EDT Heparin HBW Bolus 5000 units/mL: Start: 08/01/22 22:01:00 EDT, Dose = 8,750 unit(s), = 1.75 mL, IV Push, q6h, PRN, Protocol, Weight Based Heparin, 08/01/22 22:01:00 EDT Heparin for IV 25,000 unit(s) [15.723 unit(s)/kg/hr] + Dextrose 5% Premix Diluent 250 mL: Start: 08/01/22 22:01:00 EDT, Rate: 25 mL/hr, 08/01/22 22:01:00 EDT Lopressor: Start: 08/06/22 16:00:00 EDT, Dose = 100 mg, = 1 tab(s), Oral, q8h, Hold if SBP (mmHg) < 90, Hold if HR (bpm) < 60, 0, 08/06/22 8:17:00 EDT Miralax Powder Packet: Start: 08/04/22 9:05:00 EDT, Dose = 17 gram(s), = 15 mL, Oral, BID, PRN, Constipation, 08/04/22 9:05:00 EDT Nicoderm C-Q 14 mg/24 hr transdermal film, extended release: Start: 08/02/22 9:00:00 EDT, Dose = 1 patch(es), ER Film, Transdermal, q24h, 14 day(s), Stop: 08/15/22 9:00:00 EDT, 08/02/22 8:49:00 EDT Tylenol: Start: 08/03/22 15:50:00 EDT, Dose = 650 mg, = 2 tab(s), Oral, q4h, PRN, Pain, scale 1-3, 08/03/22 15:50:00 EDT Zofran: Start: 08/03/22 15:50:00 EDT, Dose = 4 mg, = 2 mL, IV Push, q4h, PRN, Nausea/Vomiting, 08/03/22 15:50:00 EDT lidocaine (lidocaine Patch REMOVAL): Start: 08/08/22 9:00:00 EDT, q24h, 08/04/22 20:59:00 EDT lidocaine 1% preservative-free injectable solution: Start: 08/07/22 13:00:00 EDT, Dose = 2.5 mg, = 0.25 mL, Intradermal, prep pharm, 08/07/22 12:47:00 EDT lidocaine 4% topical patch: Start: 08/07/22 21:00:00 EDT, Dose = 1 patch(es), Film, Transdermal, q24h, Apply to: right lower back, 08/04/22 8:59:00 EDT melatonin: Start: 08/02/22 8:50:00 EDT, Dose = 5 mg, = 1 tab(s), Oral, qHS, PRN, Sleep, 08/02/22 8:50:00 EDT miconazole 2% topical powder: Start: 08/04/22 1:26:00 EDT, Dose = 1 julia, Topical, BID, Apply to: groin, Powder, 08/04/22 1:26:00 EDT nicotine (Nicoderm Patch REMOVAL): Start: 08/03/22 9:00:00 EDT, q24h, 08/03/22 8:49:00 EDT oxyCODONE 5 mg oral tablet ( IMMEDIATE release ): Start: 08/04/22 9:06:00 EDT, Dose = 10 mg, = 2 tab(s), Oral, q4h, PRN, Pain, scale 7-10, 08/04/22 9:06:00 EDT oxyCODONE 5 mg oral tablet ( IMMEDIATE release ): Start: 08/04/22 9:06:00 EDT, Dose = 5 mg, = 1 tab(s), Oral, q4h, PRN, Pain, scale 4-6, 08/04/22 9:06:00 EDT senna: Start: 08/04/22 9:06:00 EDT, Dose = 8.6 mg, = 1 tab(s), Oral, qDay, PRN, Constipation, 08/04/22 9:06:00 EDT Future EPINEPHrine 1 mg/mL injectable solution: Start: 08/04/22 7:00:00 EDT, Dose = 0.3 mg, = 0.3 mL, Intramuscular INF, Once, PRN, Other (see order comments), Routine, Stop: 08/05/22 6:59:00 EDT, Order forfuture visit, 0, Day 1, 08/04/22 7:00:00 EDT NS 1000 mL Bolus: Start: 08/04/22 7:00:00 EDT, Dose = 1,000 mL, Soln, IV Bolus, Once, PRN, Other (see order comments), Routine, Stop: 08/05/22 6:59:00 EDT, Order for future visit, Rate: 500 mL/hr, hour(s), Day 1, 08/04/22 7:00:00 EDT Zero Time Placeholder: Start: 08/04/22, 08/04/22 7:00:00 EDT diphenhydrAMINE: Start: 08/04/22 7:00:00 EDT, Dose = 50 mg, = 1 mL, IV Push (INF), Once, PRN, Other(see order comments), Routine, Stop: 08/05/22 6:59:00 EDT, Order for future visit, 0, Day 1, 08/04/22 7:00:00 EDT famotidine: Start: 08/04/22 7:00:00 EDT, Dose = 20 mg, = 2 mL, IV Push (INF), Once, PRN, Other (seeorder comments), Routine, Stop: 08/05/22 6:59:00 EDT, Order for future visit, 0, Day 1, 08/04/22 7:00:00 EDT hydrocortisone 100 mg preservative-free injection: Start: 08/04/22 7:00:00 EDT, Dose = 100 mg, IV Push (INF), Once, PRN, Other (see order comments), Routine, Stop: 08/05/22 6:59:00 EDT, Order for future visit, 0, Day 1, 08/04/22 7:00:00 EDT nivolumab (DoT): Start: 08/04/22, Dose = 480 mg, = 48 mL, IV Piggyback, Day of Tx, Routine, Order for future visit, Day 1, Rate: 296 mL/hr, Infuse over: 30 minute(s), 0, 08/04/22 7:00:00 EDT Prescriptions Prescribed oxyCODONE 5 mg oral tablet ( IMMEDIATE release ): Dose : 5 mg = 1 tab(s), Oral, q8h, PRN PRN as needed for pain, # 90 tab(s), 0 Refill(s), Pharmacy: [facility]/pharmacy #[id number], Renal cancer, 172.7, cm, 06/09/22 11:10:00 EDT, Height, 166.7, kg, 06/09/22 11:10:00 EDT, Dosing Weight Documented Medications Documented Miralax 255 gm bottle: gram(s) =, Oral, qDay, PRN Congestion, 0 Refill(s) senna 8.6 mg oral tablet: Dose : 17.2 mg = 2 tab(s), Oral, BID, PRN as needed for constipation, # 20 tab(s), 0 Refill(s), Medications (19) Active Scheduled: (8) lidocaine 1% (MPF) 2 mL vial pf 2.5 mg 0.25 mL, Intradermal, prep pharm lidocaine patch REMOVAL 1 EA, Miscellaneous, q24h lidocaine topical 4% patch 1 patch(es), Transdermal, q24h menthol (Biofreeze) gel packet 1 julia, Topical, qDay metoprolol tartrate 100 mg tablet 100 mg 1 tab(s), Oral, q8h miconazole topical 2% Powder 1 julia, Topical, BID Nicoderm patch REMOVAL 1 EA, Miscellaneous, q24h nicotine 14 mg/24 hr ER patch 14 mg 1 patch(es), Transdermal, q24h Continuous: (2) Dextrose 5% with 0.45% NACL 1,000 mL 1,000 mL, Intravenous, 20 mL/hr heparin 25,000 unit(s) [15.723 unit(s)/kg/hr] + Dextrose 5% Premix Diluent 250 mL 250 mL, Intravenous, 25 mL/hr PRN: (9) acetaminophen 325 mg Tablet 650 mg 2 tab(s), Oral, q4h heparin 5,000 units/mL (1 mL) vial 8,750 unit(s) 1.75 mL, IV Push, q6h heparin 5,000 units/mL (1 mL) vial 6,360 unit(s) 1.27 mL, IV Push, q6h melatonin 5 mg tablet 5 mg 1 tab(s), Oral, qHS ondansetron 2 mg/ 1 mL 2 mL INJ 4 mg 2 mL, IV Push, q4h oxycodone 5 mg tablet (immediate release) 5 mg 1 tab(s), Oral, q4h oxycodone 5 mg tablet (immediate release) 10 mg 2 tab(s), Oral, q4h polyethylene glycol 3350 - UD packet 17 gram(s) 15 mL, Oral, BID senna 8.6 mg Tablet 8.6 mg 1 tab(s), Oral, qDay Problem list: Medical Alcohol abuse / SNOMED CT 35780428 / Confirmed Cigarette smoker Active / SNOMED CT 646860362 / Confirmed T11 vertebral fracture / SNOMED CT 3458552249 / Confirmed Marijuana user Active / SNOMED CT 5797808841 / Confirmed Metastatic renal cell carcinoma. S/P Left cytoreductive nephrectomy 08/14/20. Final path - ccRCC withsarcomatoid features. / SNOMED CT 9792324594 / Confirmed Lung nodule, multiple Active / SNOMED CT 2117989511 / Confirmed No chronic diseases present / SNOMED CT [id number] / Confirmed Left renal mass. 9.6-cm. With perinephric fat invasion. With lytic bony lesion and pulmonary nodules concerning for mets. BS, 07/2020 - neg. CT brain, 07/2020 - neg. S/P Radical nephrectomy 08/14/20. / SNOMED CT 160657595 / Confirmed Secondary malignant neoplasm of bone (disorder) Active / SNOMED CT 191977240 / Confirmed Tobacco abuse / SNOMED CT 000873349 / Confirmed Viral gastroenteritis / SNOMED CT 866958347 / Confirmed, Active Problems (26) Alcohol abuse Anxiety Arthritis At risk for sleep apnea Back pain Bleeding hemorrhoid BMI 50.0-59.9, adult Constipation COPD - Chronic obstructive pulmonary disease PIERSON (dyspnea on exertion) Elevated hemoglobin A1c Glasses Left renal mass. 9.6-cm. With perinephric fat invasion. With lytic bony lesion and pulmonary nodules Metastatic renal cell carcinoma. S/P Left cytoreductive nephrectomy 08/14/20. Final path - ccRCC with No chronic diseases present Pain management Rash Severe pain Sleep apnea T11 vertebral fracture Tobacco abuse Viral gastroenteritis Cigarette smoker Active Lung nodule, multiple Active Marijuana user Active Secondary malignant neoplasm of bone (disorder) Active Histories Past Medical History: Active No chronic diseases present ([id number]) Resolved Renal cell carcinoma (disorder) Active ([id number]): Resolved. Family History: Kidney stone Mother Sister Rheumatoid arthritis Mother Hypertension Mother Father Heart attack Father Crohn's disease Sister HTN - Hypertension Mother Father Diabetes Father Procedure history: Tooth extraction ([id number]) on 08/28/2021 at 41 Years. Nephrectomy, including partial ureterectomy, any open approach including rib resection; radical, with regional lymphadenectomy and/or vena caval thrombectomy ([id number]) on 08/14/2020 at 40 Years. Tonsillectomy ([id number]). Chemotherapy ([id number]). Comments: 11/17/2020 9:50 HENOK Bucio 3 weeks ago Boost radiation therapy ([id number]). Comments: 11/17/2020 9:51 HENOK Bucio 11-17-20 Social History Social & Psychosocial Habits Alcohol 11/07/2016Risk Assessment: Medium Risk 03/07/2022 Use: Current Type: Beer Frequency: Daily Previous treatment: Outpatient Has alcohol use interfered with work or home life: No Do you ever drink more than intended: Yes Has anyone been hurt or at risk by your drinking: Yes Ready to change: Yes Comment: Quit JULY 16, 2020 - 08/14/2020 10:33 - HENOK Purdy Employment/School 12/16/2020 Status: Employed Substance Abuse 11/07/2016Risk Assessment: Denies Substance Abuse 08/14/2020 Use: Current Type: Marijuana Frequency: 1-2 times per month IV drug use: No Ready to change: No Concerns about substance abuse in household: No Tobacco 08/07/2020 Tobacco Use: 10 or more cigarettes (1/ Type: Cigarettes Started at age: 13 Years Ready to change: Yes Comment: Daily Tobacco/Smoke Exposure - 10/25/2018 09:49 - Mely Beth CMA Home/Environment 08/14/2020 Domestic Concerns None Living situation: Home with assistance 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 Physical Examination General: Alert and oriented. Airway: Normal temporomandibular joint mobility, Normal mouth, Normal throat, Normal neck range of motion, Trachea midline. Mallampati classification: II (soft palate, fauces, uvula visible). Head: Normocephalic. Dentition Evaluation: Intact, Own teeth, Denies loose/chipped teeth. Neck: Supple. Respiratory: Lungs are clear to auscultation, Respirations are non-labored. Cardiovascular: Normal rate, No murmur. Heart Sounds: Normal. Gastrointestinal: Soft. Musculoskeletal Normal range of motion. Integumentary: Intact, Warm, Dry. Neurologic: Alert, Oriented. Review / Management Results review: Lab results 08/08/2022 8:19 EDT Mechanical VTE Prophylaxis Education Not Done: Task Duplication (Not Done) Sequential Compression Device Form Not Done (Not Done) 08/08/2022 7:30 EDT Pain Scale Assessment 0-10 Pain scale Primary Pain Location Generalized Primary Pain Intensity 0 Reason for PRN medication Pain management PRN medication effectiveness Yes PRN Medication Effectiveness Evaluation PRN Medication Effectiveness Evaluation 08/08/2022 7:11 EDT Oxygen Therapy Nasal cannula 0L-6L Oxygen Activity Oxygen On Oxygen Flow Rate 2 08/08/2022 7:00 EDT Urine Voided 600 mL 08/08/2022 6:08 EDT Mechanical VTE Prophylaxis Education Not Done: Task Duplication (Not Done) Sequential Compression Device Form Not Done (Not Done) 08/08/2022 6:07 EDT Individuals Taught Patient Learning Readiness low motivation level Barriers to Learning None evident Teaching Method Explanation, Teach-back Teaching Evaluation Verbalizes/Nonverbally indicates understanding Identify Action of Anticoagulant Yes Identify Reason/Purpose of Anticoagulant Yes Reason/Purpose of Anticoagulant Rx or prevent blood clots Identify Generic and Trade Names of Med Not done this session 08/08/2022 5:42 EDT Primary Pain Intensity 7 Activity Status ADL Awake, Remains up in chair Standard Safety ID band on, Allergy Band on, Call device within reach, Bed in low position, Wheels locked, Safety level maintained High Risk Safety Room check performed Demonstrates Correct Call Light Use Yes COVID 19 Surge in Effect Yes oxyCODONE 10 mg mg 08/08/2022 4:20 EDT Violence Risk Confused No Violence Risk Irritable No Violence Risk Boisterous No Violence Risk Verbal Threats No Violence Risk Physical Threats No Violence Risk Attacking Objects No Violence Risk Predictor Score 0 Violence Risk Intervention None Violence Risk Current Interventions None Able To Drink Order Detail No Able To Sign Consents Order Detail Yes Code Status Order Detail Full code IV Order Detail No Dialysis Schedule Order Detail N/A Has Diabetes Order Detail No Isolation Precautions Order Detail None Nurse Collect Order Detail 0 Oxygen Order Detail No Order Detail N/A Prior Valve Replacement Order Detail No Transport Mode Order Detail MTT with Monitor Can Top Setter Details Form Can Top Setter Details Form 08/08/2022 4:19 EDT Mechanical VTE Prophylaxis Education Not Done: Task Duplication (Not Done) Sequential Compression Device Form Not Done (Not Done) 08/08/2022 4:17 EDT Implanted port Right 19g 08/01/2022 Central IV Activity: Assessed Central IV Number of Lumens: Single Central IV Patency Proximal Port: Continuous infusion Central IV Dressing Condition: Clean, Dry, Intact Central IV Dressing / Activity: Port CHG dressing with proper placement Central IV Line Care: Alcohol port cap(s) in place Central IV Site Condition: No complications Central IV Equipment: IV Pump, PRN Adaptor Wrist Right 08/02/2022 20 gauge Peripheral IV Activity: Assessed Peripheral IV Dressing Condition: Dry, Intact Peripheral IV Dressing Activity: Transparent dressing Peripheral IV Line Status/Patency: Flushes easily Peripheral IV Site Condition: No complications Peripheral IV Equipment: PRN Adaptor 08/08/2022 4:15 EDT Temperature Oral 36.8 DegC Heart Rate Monitored 127 bpm HI Respiratory Rate 20 br/min Systolic Blood Pressure Non-Invasive 129 mmHg Diastolic Blood Pressure Non-Invasive 81 mmHg Mean Arterial Pressure (NBP) 95 mmHg Primary Pain Location Lower back Primary Pain Intensity 3 Primary Pain Pharma Intervention Medication Pain Scale Type 0-10 Pain scale Heart Sounds ICU S1S2 Heart Rhythm Regular Alarms On and Functional Yes Heart Rate Alarm Set At - Low 50 Heart Rate Alarm Set At - High 120 Respirations Unlabored Respiratory Pattern Regular Breath Sounds Auscultated Anterior only All Lobes Breath Sounds Diminished, Equal Cough Persistent, Productive, Able to clear secretions Sputum Amount Small Sputum Color Blood-Tinged Sputum Consistency Thick Oxygen Therapy Humidification, Nasal cannula 0L-6L Oxygen Saturation 100 % Oxygen Flow Rate 2 Tracheal Position Midline Neurological Symptoms Patient denies Level of Consciousness Arousable with minimal stimulation Eye Opening Response [place] Spontaneously Best Motor Response [place] Obeys simple commands Best Verbal Response Norton Oriented Norton Coma Score 15 GERMAN Yes Affect/Behavior Appropriate, Calm, Cooperative Orientation Oriented x 4 Activity Status ADL Remains up in chair Standard Safety ID band on, Allergy Band on, Call device within reach, Bed in low position, Wheels locked, Safety level maintained High Risk Safety Room check performed Demonstrates Correct Call Light Use Yes COVID 19 Surge in Effect Yes 08/08/2022 4:05 EDT Rise Time 2 second(s) Respiratory Rate Total 22 br/min Noninvasive Frequency, Mandatory 8 br/min Noninvasive FiO2 30 % Noninvasive Tidal Volume, Exhaled 0.468 L Noninvasive Minute Volume 7.7 L/min Non-Invasive Inspiratory Time (IT) 0.8 second(s) Mask/ETT Selection 1 Exhalation port selection Other: Non Invasive On and Functional Yes Non Invasive Vent Apnea 20 second(s) Non InvasiveVent Low Pressure/Disconnect 8 cmH20 Non InvasiveVent High Pressure 26 cmH20 Non InvasiveVent Low Rate 8 br/min Non InvasiveVent High Rate 40 br/min Non InvasiveVent Low Minute Volume 2 L/min BiPAP/CPAP Mode BiPAP BiPAP/CPAP Machine Model Kristen V60 BiPAP/CPAP Machine ID [id number] Estimated Leak 4 L/min Mask/Delivery Type Full face mask Mask Size Large Patient Tolerance BiPAP/CPAP Well Nares Condition on BIPAP/CPAP No breakdown noted Inspiratory Pressure 15 cmH20 Expiratory Pressure 8 cmH20 08/08/2022 3:19 EDT Activity Status ADL Sleeping Standard Safety ID band on, Allergy Band on, Call device within reach, Bed in low position, Wheels locked, Upper/Half-Length side-rails up, Phone within reach, personal items within reach, Safety level maintained High Risk Safety Room check performed Demonstrates Correct Call Light Use Yes COVID 19 Surge in Effect Yes 08/08/2022 2:08 EDT Activity Status ADL Remains up in chair, Sleeps intermittently Standard Safety ID band on, Allergy Band on, Call device within reach, Bed in low position, Wheels locked, Upper/Half-Length side-rails up, Phone within reach, personal items within reach, Safety level maintained High Risk Safety Room check performed Demonstrates Correct Call Light Use Yes COVID 19 Surge in Effect Yes 08/08/2022 2:05 EDT heparin unit(s)/kg/hr unit(s) Dextrose 5% Premix Diluent Dextrose 5% Premix Diluent mL 08/08/2022 1:27 EDT Heparin dose (APTT) Unknown APTT 123.0 seconds CRIT 08/08/2022 0:19 EDT Apical Heart Rate 128 bpm >HHI lidocaine topical 1 patch(es) patch(es) metoprolol 100 mg mg 08/08/2022 0:17 EDT Activity Status ADL Remains up in chair, Sleeps intermittently Standard Safety ID band on, Allergy Band on, Call device within reach, Bed in low position, Wheels locked, Upper/Half-Length side-rails up, Phone within reach, personal items within reach, Safety level maintained High Risk Safety Room check performed Demonstrates Correct Call Light Use Yes COVID 19 Surge in Effect Yes 08/08/2022 0:15 EDT Heart Rate Monitored 129 bpm HI Respiratory Rate 21 br/min HI Systolic Blood Pressure Non-Invasive 133 mmHg Diastolic Blood Pressure Non-Invasive 88 mmHg Reason For Taking VItal Signs Routine Primary Pain Location Lower back Primary Pain Intensity 6 Primary Pain Pharma Intervention Medication Pain Scale Type 0-10 Pain scale Cardiac Rhythm Sinus tachycardia Monitoring Lead II, V5/MCL5 [place] Interval 0.12 second(s) QRS Duration 0.09 second(s) QT Interval 0.30 second(s) QTc Interval 0.44 second(s) Respirations Unlabored Respiratory Pattern Regular Breath Sounds Auscultated Anterior and posterior All Lobes Breath Sounds Clear, Diminished Oxygen Therapy BiPAP Oxygen Saturation 100 % Facial Movement Symmetric resting/crying Neurological Language Able to speak clearly Neurological Symptoms Patient denies Characteristics of Communication Appropriate Characteristics of Speech Clear Facial Symmetry Symmetric Level of Consciousness Arousable with minimal stimulation CN V Facial Sensation Corneal reflex present CN VII Facial Expression and Symmetry Facial movement symmetrical CN IX, X Swallowing, Gag Reflex Swallowing present Affect/Behavior Appropriate, Calm, Cooperative Orientation Oriented x 4 08/07/2022 23:51 EDT Cardiac Rhythm Sinus tachycardia Monitoring Lead II, V1/MCL1 NJ Interval 0.10 second(s) QRS Duration 0.09 second(s) QT Interval 0.28 second(s) QTc Interval 41 second(s) Alarms On and Functional Yes Heart Rate Alarm Set At - Low 50 Heart Rate Alarm Set At - High 120 08/07/2022 23:17 EDT Urine Voided 1,000 mL 08/07/2022 23:05 EDT Rise Time 2 second(s) Respiratory Rate Total 30 br/min HI Noninvasive Frequency, Mandatory 8 br/min Noninvasive FiO2 30 % Noninvasive Tidal Volume, Exhaled 0.555 L Noninvasive Minute Volume 17.4 L/min Non-Invasive Inspiratory Time (IT) 0.8 second(s) Mask/ETT Selection 1 Exhalation port selection Other: Non Invasive On and Functional Yes Non Invasive Vent Apnea 20 second(s) Non InvasiveVent Low Pressure/Disconnect 8 cmH20 Non InvasiveVent High Pressure 26 cmH20 Non InvasiveVent Low Rate 8 br/min Non InvasiveVent High Rate 40 br/min Non InvasiveVent Low Minute Volume 2 L/min BiPAP/CPAP Mode BiPAP BiPAP/CPAP Machine Model Kristen V60 BiPAP/CPAP Machine ID [id number] Estimated Leak 0 L/min Mask/Delivery Type Full face mask Mask Size Large Patient Tolerance BiPAP/CPAP Fair Nares Condition on BIPAP/CPAP No breakdown noted Inspiratory Pressure 15 cmH20 Expiratory Pressure 8 cmH20 08/07/2022 23:03 EDT BIPAP/CPAP Daily Charge BIPAP on 08/07/2022 21:59 EDT heparin 21,000 unit(s) unit(s) Dextrose 5% Premix Diluent 210 mL mL Dextrose 5% with 0.45% NaCl 112 mL mL 08/07/2022 21:37 EDT Ed-Activity Expectations Verbalizes/Nonverbally indicates understanding Ed-Medication Side Effects Verbalizes/Nonverbally indicates understanding Ed-Diet/Nutrition Verbalizes/Nonverbally indicates understanding Ed-Breathing Techniques Needs further teaching Nx-Zjoeif-Bo Care/Appointment Needs further teaching Edu-Med Generic/Brand Name,Purpose,Action Needs further teaching Ed-Disease Process Needs further teaching Ed-Patient/Caregiver about Hand Hygiene Needs further teaching 08/07/2022 21:35 EDT Individuals Taught Patient Learning Readiness low motivation level Barriers to Learning None evident Teaching Method Explanation Teaching Evaluation Needs reinforcement Mechanical VTE Prophylaxis Education Not Done: See ICU flow (Not Done) Mechanical VTE Prophylaxis Education Not Done: See ICU flow (Not Done) Identify Action of Anticoagulant Yes Identify Reason/Purpose of Anticoagulant Yes Reason/Purpose of Anticoagulant Rx of pulmonary embolism Identify Side Effects of Anticoagulant Not done this session Identify Activities Causing Cuts/Bruises Not done this session Id. Problems Requiring Phy. Notification Not done this session Id. Importance of Follow-Up Lab Work Yes Identify Generic and Trade Names of Med Not done this session Sequential Compression Device Form Not Done (Not Done) Sequential Compression Device Form Not Done (Not Done) 08/07/2022 21:34 EDT Activity Status ADL Remains up in chair Standard Safety Safety level maintained Able To Drink Order Detail Yes Able To Sign Consents Order Detail Yes Code Status Order Detail Full code IV Order Detail Yes Dialysis Schedule Order Detail N/A Has Diabetes Order Detail No Isolation Precautions Order Detail None Nurse Collect Order Detail 0 Oxygen Order Detail Yes Order Detail N/A Prior Valve Replacement Order Detail No Transport Mode Order Detail MTT with Monitor Can Top Setter Details Form Can Top Setter Details Form 08/07/2022 21:27 EDT BiPAP/CPAP Machine Model Kristen V60 Patient Tolerance BiPAP/CPAP on stand-by 08/07/2022 21:00 EDT miconazole topical Not Done: Patient Refused (Not Done) Oral Intake 480 mL 08/07/2022 20:46 EDT heparin 19 unit(s)/kg/hr unit(s) Dextrose 5% Premix Diluent Dextrose 5% Premix Diluent mL 08/07/2022 19:50 EDT heparin unit(s)/kg/hr unit(s) Dextrose 5% Premix Diluent Dextrose 5% Premix Diluent mL 08/07/2022 19:22 EDT Implanted port Right 19g 08/01/2022 Central IV Activity: Assessed Central IV Site Condition: No complications Wrist Right 08/02/2022 20 gauge Peripheral IV Activity: Assessed Peripheral IV Site Condition: No complications 08/07/2022 19:16 EDT Temperature Oral 37 DegC Heart Rate Monitored 128 bpm HI Respiratory Rate 25 br/min HI Systolic Blood Pressure Non-Invasive 131 mmHg Diastolic Blood Pressure Non-Invasive 86 mmHg Mean Arterial Pressure (NBP) 100 mmHg Reason For Taking VItal Signs Routine Primary Pain Intensity 0 Primary Pain Nonverbal Response Nods No Pain Scale Type 0-10 Pain scale Monitor Alarms On and Limits Checked Heart Sounds ICU S1S2 Heart Rhythm Regular Cardiac Rhythm Sinus tachycardia Alarms On and Functional Yes Heart Rate Alarm Set At - Low 50 Heart Rate Alarm Set At - High 140 Respiratory Pattern Regular Breath Sounds Auscultated Anterior only All Lobes Breath Sounds Clear, Diminished Cough Productive, Strong Sputum Amount Small Sputum Color Blood-Tinged Sputum Consistency Thick Oxygen Therapy Humidification, Nasal cannula 0L-6L Oxygen Saturation 94 % Oxygen Flow Rate 2 Continuous IV Infusions d5.45ns@20 Neurological Symptoms Patient denies Extremity Movement Equal Facial Symmetry Symmetric Level of Consciousness Arousable with minimal stimulation GERMAN Yes Strength All Extremities Moderate Activity Status ADL Remains up in chair Standard Safety ID band on, Call device within reach High Risk Safety Room check performed Demonstrates Correct Call Light Use Yes heparin 22 unit(s)/kg/hr unit(s) Dextrose 5% Premix Diluent Dextrose 5% Premix Diluent mL 08/07/2022 19:14 EDT Heparin dose (APTT) Heparin IV APTT 143.6 seconds CRIT Protime 15.1 seconds HI PT International Ratio 1.3 ratio NA 08/07/2022 17:27 EDT heparin Begin Bag 2.5 mL unit(s) Dextrose 5% Premix Diluent Begin Bag 250 mL mL 08/07/2022 17:11 EDT Activity Status ADL Remains up in chair Standard Safety Safety level maintained 08/07/2022 17:10 EDT Current Weight 165.2 kg Type of Scale Used Standing 08/07/2022 17:00 EDT Violence Risk Confused No Violence Risk Irritable No Violence Risk Boisterous No Violence Risk Verbal Threats No Violence Risk Physical Threats No Violence Risk Attacking Objects No Violence Risk Predictor Score 0 Violence Risk Intervention None Violence Risk Current Interventions None Urine Voided 275 mL 08/07/2022 16:55 EDT Mechanical VTE Prophylaxis Education Not Done: See ICU flow (Not Done) Mechanical VTE Prophylaxis Education Not Done: See ICU flow (Not Done) Able To Drink Order Detail Not Done: See ICU flow (Not Done) Able To Sign Consents Order Detail Not Done: See ICU flow (Not Done) Code Status Order Detail Not Done: See ICU flow (Not Done) IV Order Detail Not Done: See ICU flow (Not Done) Dialysis Schedule Order Detail Not Done: See ICU flow (Not Done) Has Diabetes Order Detail Not Done: See ICU flow (Not Done) Isolation Precautions Order Detail Not Done: See ICU flow (Not Done) Nurse Collect Order Detail Not Done: See ICU flow (Not Done) Oxygen Order Detail Not Done: See ICU flow (Not Done) Order Detail Not Done: See ICU flow (Not Done) Prior Valve Replacement Order Detail Not Done: See ICU flow (Not Done) Transport Mode Order Detail Not Done: See ICU flow (Not Done) Can Top Setter Details Form Not Done (Not Done) Sequential Compression Device Form Not Done (Not Done) Sequential Compression Device Form Not Done (Not Done) 08/07/2022 15:45 EDT Apical Heart Rate 130 bpm >HHI metoprolol 100 mg mg Dextrose 5% with 0.45% NaCl Begin Bag 1,000 mL mL 08/07/2022 15:43 EDT Temperature Oral 36.9 DegC Heart Rate Monitored 130 bpm HI Respiratory Rate 28 br/min HI Systolic Blood Pressure Non-Invasive 128 mmHg Diastolic Blood Pressure Non-Invasive 91 mmHg HI Mean Arterial Pressure (NBP) 101 mmHg Reason For Taking VItal Signs Routine Primary Pain Intensity 0 Primary Pain Nonverbal Response Nods No Pain Scale Type 0-10 Pain scale Monitor Alarms On and Limits Checked Nail Bed Color [place] Capillary Refill < 2 seconds Heart Sounds ICU S1S2 Heart Rhythm Regular Dorsalis Pedis Pulse, Left 1+ Thready Dorsalis Pedis Pulse, Right 1+ Thready Posttibial Pulse, Left 1+ Thready Posttibial Pulse, Right 1+ Thready Radial Pulse, Left 2+ Normal Radial Pulse, Right 2+ Normal Leg edema Edema Ratin+ mild/4mm Cardiac Rhythm Sinus tachycardia Monitoring Lead II, V1/MCL1 NJ Interval 0.13 second(s) QRS Duration 0.07 second(s) QT Interval 0.26 second(s) QTc Interval 0.38 second(s) Alarms On and Functional Yes Heart Rate Alarm Set At - Low 50 Heart Rate Alarm Set At - High 140 NSBP Alarm Low 90 NSBP Alarm High 160 HI Respirations Unlabored Respiratory Pattern Regular Breath Sounds Auscultated Anterior only All Lobes Breath Sounds Clear, Diminished Cough and Deep Breathe Done Cough Occasional, Productive Sputum Amount Small Sputum Color Blood-Tinged Sputum Consistency Thick Oxygen Therapy Humidification, Nasal cannula 0L-6L Oxygen Saturation 99 % Oxygen Flow Rate 2 Abdomen Description Symmetric, Soft Abdomen Palpation Soft Bowel Sounds All Quadrants Present Urinary Elimination Voiding, no difficulties Facial Movement Makes facial grimaces Skin Symptoms Bruising All Extremity Description [place] Skin Temperature Warm Temperature All Extremities Warm Skin Description Normal for ethnicity Skin Integrity Not intact Skin Turgor Non-Elastic Mucous Membrane Color [place] Mucous Membrane Description Moist Groin Right Skin Abnormality Type: Procedure site Wound Status: No complications Groin Bilateral Skin Abnormality Type: Excoriation Wound Status: No complications Continuous IV Infusions d51/2ns@20 Implanted port Right 19g 08/01/2022 Central IV Activity: Assessed Central IV Number of Lumens: Single Central IV Patency Proximal Port: Continuous infusion Central IV Dressing Condition: Dry, Intact Central IV Dressing / Activity: Port CHG dressing with proper placement Central IV Line Care: Alcohol port cap(s) in place, Date/time/initials present, Needleless Protector End Cap(s) in place Central IV Equipment: IV Pump Wrist Right 08/02/2022 20 gauge Peripheral IV Activity: Assessed Peripheral IV Dressing Condition: Dry, Intact Peripheral IV Dressing Activity: Transparent dressing Peripheral IV Line Status/Patency: Flushes easily Peripheral IV Line Care: Alcohol port cap(s) in place Peripheral IV Site Condition: No complications Peripheral IV Equipment: PRN Adaptor Neurological Language Follows simple commands Neurological Symptoms Patient denies Gait Unable to assess Extremity Movement Equal Swallowing Difficulty None Characteristics of Communication Appropriate Characteristics of Speech Clear Facial Symmetry Symmetric Level of Consciousness Alert Aspiration Risk None Eye Opening Response Norton Spontaneously Best Motor Response Norton Obeys simple commands Best Verbal Response Norton Oriented Norton Coma Score 15 GERMAN Yes Left Pupil Description Regular Right Pupil Description Regular Left Pupil Reaction Brisk Right Pupil Reaction Brisk Pupil Size, Left 3 mm Pupil Size, Right 3 mm Strength All Extremities Moderate Left Upper Extremity Sensation Intact Right Upper Extremity Sensation Intact Left Lower Extremity Sensation Intact Right Lower Extremity Sensation Intact CN V Facial Sensation Corneal reflex present CN VII Facial Expression and Symmetry Facial movement symmetrical CN IX, X Swallowing, Gag Reflex Swallowing present Affect/Behavior Calm, Cooperative Orientation Oriented x 4, Follows simple commands Activity Status ADL Remains up in chair Standard Safety ID band on, Call device within reach High Risk Safety Room check performed Demonstrates Correct Call Light Use Yes heparin 22 unit(s)/kg/hr unit(s) Dextrose 5% Premix Diluent Dextrose 5% Premix Diluent mL 08/07/2022 15:35 EDT Hospitalist Progress Note Progress Note 08/07/2022 15:00 EDT Urine Voided 1,025 mL 08/07/2022 14:00 EDT Standard Safety Safety level maintained High Risk Safety Room check performed 08/07/2022 13:13 EDT Electrocardiogram - EKG - CV Signed 08/07/2022 13:02 EDT Notify date/time 08/07/2022 13:02 Provider Notified MIKE RIVERA MD Notification Method Phone Information Communicated Nurse communication Details Communicated Dr. Wick recommends bridging to eliquis as soon as possible 10mg BID for 7 days then switch to 5 mg BID; with hemoptisis and high aptt with heparin drip eliquis would be a better choice Notification Outcome Orders received Person Reporting Result(s) Cindy Miranda RN Details of Results Received wait until after BONNIE tomorrow then will bridge to eliquis Results Read Back Yes 08/07/2022 12:54 EDT Notify date/time 08/07/2022 12:54 Provider Notified [email or web address] (For Consultation Assignment Only NO other Orders) Notification Method Pager Person Reporting Result(s) Cindy Miranda RN 08/07/2022 12:49 EDT Pulmonology Progress Note Progress Note 08/07/2022 12:49 EDT Cardiac EP Progress Note Progress Note 08/07/2022 12:45 EDT Heparin dose (APTT) Heparin IV APTT 64.7 seconds HI 08/07/2022 11:44 EDT Temperature Oral 37 DegC Heart Rate Monitored 128 bpm HI Respiratory Rate 28 br/min HI Systolic Blood Pressure Non-Invasive 136 mmHg Diastolic Blood Pressure Non-Invasive 87 mmHg Mean Arterial Pressure (NBP) 100 mmHg Reason For Taking VItal Signs Routine Primary Pain Location Chest Primary Pain Laterality Right Primary Pain Intensity 2 Pain Scale Type 0-10 Pain scale Monitor Alarms On and Limits Checked Heart Rhythm Regular Cardiac Rhythm Sinus tachycardia Monitoring Lead II, V5/MCL5 Alarms On and Functional Yes Oxygen Therapy Nasal cannula 0L-6L Oxygen Saturation 96 % Oxygen Flow Rate 2 Tolerating Oral Intake Yes Activity Status ADL Remains up in chair Standard Safety Safety level maintained High Risk Safety Room check performed heparin 22 unit(s)/kg/hr unit(s) Dextrose 5% Premix Diluent Dextrose 5% Premix Diluent mL 08/07/2022 9:33 EDT menthol topical 1 julia julia nicotine 14 mg mg 08/07/2022 9:20 EDT heparin Begin Bag 2.5 mL unit(s) Dextrose 5% Premix Diluent Begin Bag 250 mL mL 08/07/2022 9:00 EDT Nicoderm Patch REMOVAL 1 EA 08/07/2022 8:56 EDT Oxygen Therapy Nasal cannula 0L-6L Oxygen Activity Oxygen On Oxygen Flow Rate 2 Stool Count 1 EA 08/07/2022 7:55 EDT miconazole topical 1 julia julia 08/07/2022 7:44 EDT Apical Heart Rate 128 bpm >HHI metoprolol 100 mg mg 08/07/2022 7:38 EDT Temperature Oral 36.9 DegC Heart Rate Monitored 127 bpm HI Respiratory Rate 26 br/min HI Systolic Blood Pressure Non-Invasive 116 mmHg Diastolic Blood Pressure Non-Invasive 85 mmHg Mean Arterial Pressure (NBP) 95 mmHg Reason For Taking VItal Signs Routine Primary Pain Location Chest Primary Pain Laterality Right Primary Pain Intensity 6 Primary Pain Aggravating Factors Breathing Pain Scale Type 0-10 Pain scale Monitor Alarms On and Limits Checked Nail Bed Color [place] Capillary Refill < 2 seconds Heart Sounds ICU S1S2 Heart Rhythm Regular Dorsalis Pedis Pulse, Left 2+ Normal Dorsalis Pedis Pulse, Right 2+ Normal Posttibial Pulse, Left 1+ Thready Posttibial Pulse, Right 1+ Thready Radial Pulse, Left 2+ Normal Radial Pulse, Right 2+ Normal Cardiac Rhythm Sinus tachycardia Monitoring Lead II, V5/MCL5 [place] Interval 0.13 second(s) QRS Duration 0.1 second(s) QT Interval 0.27 second(s) QTc Interval 0.39 second(s) Alarms On and Functional Yes Heart Rate Alarm Set At - Low 50 Heart Rate Alarm Set At - High 140 NSBP Alarm Low 90 NSBP Alarm High 160 HI Respirations Unlabored Respiratory Pattern Regular Breath Sounds Auscultated Anterior only All Lobes Breath Sounds Clear, Diminished Oxygen Therapy Nasal cannula 0L-6L Oxygen Saturation 94 % Oxygen Flow Rate 2 Tracheal Position Midline Abdomen Description Symmetric, Rounded Abdomen Palpation Soft Bowel Sounds All Quadrants Present Tolerating Oral Intake Yes Urinary Elimination Voiding, no difficulties Facial Movement Makes facial grimaces Skin Symptoms Bruising All Extremity Description Normal for ethnicity Skin Temperature Warm Temperature All Extremities Warm Skin Description Normal for ethnicity Skin Integrity Not intact Skin Turgor Non-Elastic Mucous Membrane Color [place] Mucous Membrane Description Moist Sensory Perception Haroon Slightly limited Moisture Haroon Occasionally moist Activity Haroon Walks occasionally Mobility Haroon Slightly limited Nutrition Haroon Adequate Friction and Shear Haroon Potential problem Haroon Score 17 Hospital Acquired Pressure Injury Risk Low risk (score 15-18) Groin Right Skin Abnormality Type: Procedure site Incision, Wound Dressing/Activity: Open to air Wound Status: No complications Groin Bilateral Skin Abnormality Type: Excoriation Wound Status: No complications Incision, Wound Topical Agent: Powders Continuous IV Infusions prn adapted Implanted port Right 19g 08/01/2022 Central IV Activity: Assessed Central IV Number of Lumens: Single Central IV Patency Proximal Port: Flushes easily, Good blood return Central IV Dressing Condition: Clean, Dry, Intact Central IV Dressing / Activity: Port CHG dressing with proper placement Central IV Line Care: Alcohol port cap(s) in place Central IV Site Condition: No complications Central IV Equipment: IV Pump Wrist Right 08/02/2022 20 gauge Peripheral IV Activity: Assessed Peripheral IV Dressing Condition: Clean, Dry, Intact Peripheral IV Dressing Activity: Transparent dressing Peripheral IV Line Status/Patency: Flushes easily, Good blood return Peripheral IV Line Care: Alcohol port cap(s) in place, Secured with tape Peripheral IV Site Condition: No complications Peripheral IV Equipment: PRN Adaptor Neurological Language Able to speak clearly, Follows simple commands Extremity Movement Equal Swallowing Difficulty None Characteristics of Communication Appropriate Characteristics of Speech Clear Facial Symmetry Symmetric Level of Consciousness Arousable with minimal stimulation Aspiration Risk None Eye Opening Response Dominga To voice Best Motor Response Norton Obeys simple commands Best Verbal Response Dom[place] Oriented Norton Coma Score 14 GERMAN Yes Left Pupil Description Regular Right Pupil Description Regular Left Pupil Reaction Sluggish Right Pupil Reaction Sluggish Pupil Size, Left 3 mm Pupil Size, Right 3 mm Strength All Extremities Moderate Left Upper Extremity Sensation Intact Right Upper Extremity Sensation Intact Left Lower Extremity Sensation Intact Right Lower Extremity Sensation Intact CN V Facial Sensation Corneal reflex present, Light touch equal bilaterally CN VII Facial Expression and Symmetry Facial movement symmetrical, Wrinkles forehead CN IX, X Swallowing, Gag Reflex Swallowing present, Gag reflex present Campa Screen Daily History of Fall in Last 3 Months Campa No Presence of Secondary Diagnosis Camp[place] Yes Use of Ambulatory Aid [place] None, bedrest, wheelchair, nurse IV/PRN Adapter Fall Risk [place] Yes Gait Weak or Impaired Fall Risk [place] Normal, bedrest, immobile Mental Status Fall Risk [place] Oriented to own ability [place] Fall Risk Score 35 Violence Risk Confused No Violence Risk Irritable Yes (Modified) Violence Risk Boisterous No Violence Risk Verbal Threats No Violence Risk Physical Threats No Violence Risk Attacking Objects No Violence Risk Predictor Score 1 (Modified) Violence Risk Intervention None Violence Risk Current Interventions None Affect/Behavior Agitated Orientation Oriented x 4, Follows simple commands Orientation Assessment Oriented to person, Oriented to place, Oriented to time, Oriented to situation Activity Status ADL Remains up in chair Skin Care Preventative Intervention(s) heel(s)s elevated, turn and position system Standard Safety ID band on, Allergy Band on, Call device within reach, Bed in low position, Wheels locked, Upper/Half-Length side-rails up High Risk Safety Room check performed 08/07/2022 7:20 EDT Bed Bath Refused (Modified) 08/07/2022 7:00 EDT Urine Voided 725 mL 08/07/2022 6:59 EDT heparin unit(s)/kg/hr unit(s) Dextrose 5% Premix Diluent Dextrose 5% Premix Diluent mL 08/07/2022 6:18 EDT Heparin dose (APTT) Heparin IV APTT 172.2 seconds CRIT 08/07/2022 6:08 EDT Mechanical VTE Prophylaxis Education Not Done: Task Duplication (Not Done) Sequential Compression Device Form Not Done (Not Done) 08/07/2022 5:12 EDT WBC 13.9 10^3/mcL HI RBC 3.97 10^6/mcL LOW Hgb 12.8 G/dL LOW Hct 39.0 % LOW MCV 98.3 fL MCH 32.2 pg MCHC 32.8 G/dL RDW 14.7 % Platelet 201 10^3/mcL MPV 8.2 fL Neutrophil % 77.8 % HI Lymphocyte % 9.6 % LOW Monocyte % 10.3 % Eosinophil % 1.7 % Basophil % 0.6 % Neutrophil, Absolute 10.8 10^3/mcL HI Lymphocyte, Absolute 1.3 10^3/mcL Monocyte, Absolute 1.4 10^3/mcL Eosinophil, Absolute 0.2 10^3/mcL Basophil, Absolute 0.1 10^3/mcL Glucose Level 128 mg/dL HI Sodium Level 133 mEq/L LOW Potassium Level 5.0 mEq/L Chloride 99 mEq/L CO2 34 mEq/L HI Electrolyte Balance 0.0 mEq/L LOW BUN 28.0 mg/dL HI Creatinine Lvl (s) 1.25 mg/dL BUN/Creatinine Ratio 22.4 ratio HI Calcium Lvl 8.7 mg/dL GFR Non- >60 ml/min/1.73sqm NA GFR >60 ml/min/1.73sqm NA Creatinine Clearance Calc 73.02 mL/min 08/07/2022 4:04 EDT Heart Rate Monitored 126 bpm HI Respiratory Rate 20 br/min Systolic Blood Pressure Non-Invasive 115 mmHg Diastolic Blood Pressure Non-Invasive 98 mmHg HI Mean Arterial Pressure (NBP) 105 mmHg Reason For Taking VItal Signs Routine Primary Pain Intensity 0 Primary Pain Nonverbal Response Appears restful Pain Scale Type 0-10 Pain scale Monitor Alarms On and Limits Checked Nail Bed Color [place] Capillary Refill < 2 seconds Heart Sounds ICU S1S2 Heart Rhythm Regular Cardiac Rhythm Sinus tachycardia Monitoring Lead II, V1/MCL1 Alarms On and Functional Yes Heart Rate Alarm Set At - Low 50 Heart Rate Alarm Set At - High 140 Respirations Unlabored Respiratory Pattern Regular Cough Occasional Oxygen Therapy CPAP Oxygen Saturation 97 % Abdomen Description Rounded Abdomen Palpation Non-Tender Urinary Elimination Voiding, no difficulties All Extremity Description Normal for ethnicity Skin Temperature Warm Skin Description Normal for ethnicity Skin Integrity Not intact < (more content not included)... 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 He was found toevaluate a D-dimer and CTA was performed consistent with right main pulmonary artery clot with concern for right heart strain. He was transferred to [facility] and admitted under MICU started on heparin by weight. Vascular surgery was consulted and underwent EKOS on 08/02/2022. Oncology on consultation for metastatic renal cancer. He was also being treated with antibiotics for possible urinary tract infection. Patient developed atrial flutter and cardiology on consultation. Patient was started on beta-nitesh and dose was gradually increased to 100 mg every 8 hours. Given persistent tachycardia, electrophysiology was also involved and plan is to perform BONNIE and cardioversion. Patient was transferred out of ICU service on 08/06/2022. Patient seen and examined today morning at bedside. No acute events reported overnight. Currently requiring 2 L nasal cannula oxygen. Does experience occasional chest pain that is multifactorial from his pulm infarction and musculoskeletal in nature. Heart rate remains in the 130s and currently n.p.o. for BONNIE cardioversion today. Denies any palpitations, worsening shortness of breath, worsening cough however is experiencing occasional episodes of hemoptysis. Objective Vitals and Measurements T: 36.8 C (Oral) TMIN: 36.8 C (Oral) TMAX: 37 C (Oral) HR: 127(Monitored) RR: 20 BP: 129/81 SpO2: 100% WT: 165.2 kg Intake and Output 7AM Yesterday to 7AM Today Intake and Output (Last 24 hours) Intake Administration Information 322.00 Oral Intake 480.00 Output Urine Voided 2900.00 Stool Count 1.00 Total Summary Total Intake 802.00 Total Output 2900.00 Fluid Balance -2098.00 Physical Exam General: Patient is not in acute distress Neck: Supple, No JVD HEENT: Normocephalic, atraumatic, Cardiac: Regular rate and rhythm, S1 and S2 present, no murmurs, rubs, or gallops appreciated Lungs: Clear to auscultation bilaterally, no wheezes, rhonchi, or rales appreciated Abdomen: Morbidly obese, bowel sounds audible, abdomen is soft, nontender, non-distended, Musculoskeletal: Preserved ROM in all 4 extremities Extremities: No clubbing or cyanosis, pitting edema Skin: Warm, well perfused, no bruises Neurological: Alert and orientated x3, No gross focal neurological deficits Weight Current Weight Dosing Weight: 159 kg (08/01/22) Current Weight: 165.2 kg (08/07/22) Medications Medications (19) Active Scheduled: (8) lidocaine 1% (MPF) 2 mL vial pf 2.5 mg 0.25 mL, Intradermal, prep pharm lidocaine patch REMOVAL 1 EA, Miscellaneous, q24h lidocaine topical 4% patch 1 patch(es), Transdermal, q24h menthol (Biofreeze) gel packet 1 julia, Topical, qDay metoprolol tartrate 100 mg tablet 100 mg 1 tab(s), Oral, q8h miconazole topical 2% Powder 1 julia, Topical, BID Nicoderm patch REMOVAL 1 EA, Miscellaneous, q24h nicotine 14 mg/24 hr ER patch 14 mg 1 patch(es), Transdermal, q24h Continuous: (2) Dextrose 5% with 0.45% NACL 1,000 mL 1,000 mL, Intravenous, 20 mL/hr heparin 25,000 unit(s) [15.723 unit(s)/kg/hr] + Dextrose 5% Premix Diluent 250 mL 250 mL, Intravenous, 25 mL/hr PRN: (9) acetaminophen 325 mg Tablet 650 mg 2 tab(s), Oral, q4h heparin 5,000 units/mL (1 mL) vial 8,750 unit(s) 1.75 mL, IV Push, q6h heparin 5,000 units/mL (1 mL) vial 6,360 unit(s) 1.27 mL, IV Push, q6h melatonin 5 mg tablet 5 mg 1 tab(s), Oral, qHS ondansetron 2 mg/ 1 mL 2 mL INJ 4 mg 2 mL, IV Push, q4h oxycodone 5 mg tablet (immediate release) 5 mg 1 tab(s), Oral, q4h oxycodone 5 mg tablet (immediate release) 10 mg 2 tab(s), Oral, q4h polyethylene glycol 3350 - UD packet 17 gram(s) 15 mL, Oral, BID senna 8.6 mg Tablet 8.6 mg 1 tab(s), Oral, qDay Lab Results 08/07 19:14 Protime: 15.1 H PT International Ratio: 1.3 08/07 05:12 WBC: 13.9 H Hgb: 12.8 L Hct: 39.0 L Platelet: 201 Neutrophil %: 77.8 H Glucose Level: 128 H Sodium Level: 133 L Potassium Level: 5.0 BUN: 28.0 H Creatinine Lvl (s): 1.25 Imaging Results and Diagnostics CT Abdomen/Pelvis w/Contrast Result Date: August 04, 2022 Verified By: RAY MARTE MD CLINICAL STATEMENT: IMPRESSION: Confluent ground-glass and patchy opacities in the right middle and rightlower lobe. Correlate clinically and follow-up to resolution. No acute findings in the abdomen or pelvis. No evidence of new or recurrentdisease in the left nephrectomy bed. I have personally reviewed the images ofthis examination and agree with theresident's findings and interpretation. XR Chest 1 View Result Date: August 04, 2022 Verified By: ANDI TINOCO MD CLINICAL STATEMENT: IMPRESSION: Mild right atelectasis and or consolidation, also seen on the comparison. XR Chest 1 View Result Date: August 03, 2022 Verified By: CLINICAL STATEMENT: IMPRESSION: Ill-defined hazy opacification in the right lower lung. Considerationsinclude sequelae of pulmonary infarct as well as subsegmental atelectasis.Infectious/inflammatory etiologies are considered less likely especiallygiven current clinical picture. Preliminary Report was Dictated bya Resident Preliminary Report By: Trenton Cannon Dictated Time: 08/03/2022 6:55:11 AM PrelimTime: 08/03/2022 7:02:37 AM Ordering Provider: IVAN SAMS nodes 10-14 mm short axis,immeasurablelesions such as lymphangitic involvement, ascites, pleuraleffusions, etc.):? Unchanged lytic lesionwith pathological compression deformity at T11. Worsening areas of right lung base ground-glass andconsolidative opacitiesin comparison to CT thorax 08/01/2022. Liver, gallbladder, spleen, pancreas and adrenal glands are unremarkable. Right kidney is unremarkable. No hydronephrosis or urolithiasis. Patient isstatus post left nephrectomy. No new or residual disease noted in thenephrectomy bed. Uri nary bladder is unremarkable. Unremarkable prostate. Small bowel, colon and appendix are normal in caliber. There is no definitebowel wall thickening, intraperitoneal free air or focal fluid collection. Prominent subcentimeter stable celiac axis and portal caval lymph nodes arenonspecific. No pathologic lymphadenopathy. Nonaneurysmal abdominal aorta. No acute fracture. Unchanged lytic lesion pathological compression deformityat T11. Mild anasarca. Left lateral lumbar hernia containing a fewnonobstructed loops of bowel. IMPRESSION:Confluent ground-glass and patchy opacities in the right middleand rightlower lobe. Correlate clinically and follow-up to resolution. No acute findings in the abdomen or pelvis. No evidence of new or recurrentdisease in the left nephrectomy bed. I have personally reviewed the images of this examination and agree with theresident's findings and interpretation. IR Pulmonary Angio/EKOS Cath Place Result Date: August 02, 2022 Verified By: CLINICAL STATEMENT: IMPRESSION: XR Chest 1 View Result Date: August 02, 2022 Verified By: JANICE MITCHELL MD CLINICAL STATEMENT: IMPRESSION: Right infrahilar hazy opacifications likely on the basis of subsegmentalatelectasis. A developing infectious/inflammatory etiology cannot be ruledout however. I have personally reviewed the images of this examination and agree with theresident's findings and interpretation. EKG EKG - Completed -- 08/07/22 12:47:00 EDT Assessment/Plan Acute hypoxic and hypercapnic respiratory failure Pulmonary embolism of right main pulmonary artery status post EKOS Atrial flutter Hemoptysis Hyponatremia Possible UTI Leukocytosis Metastatic renal cell carcinoma Morbid obesity Possible AKHIL pending sleep study Tobacco and alcohol use Plan: 1. Patient underwent EKOS on 08/02/2022. Patient remains on heparin by weight. Currently on 2 L nasal cannula oxygen. He is experiencing occasional hemoptysis likely secondary to pulmonary infarction.Anticipate improvement after switching to oral anticoagulation hopefully today after cardioversion. We will transition him to apixaban 5 mg twice daily as patient is already on heparin by weight for 1 week after the procedure. Discussed with hematology/oncology Dr. Triana. Continue to wean off oxygen as tolerated. Appreciate input from pulmonology. 2. Regarding atrial flutter, dose of beta-nitesh was increased to 100 mg 3 times daily. Toleratingwell however remains tachycardic with heart rate in 130s. Plan for BONNIE with cardioversion today followed by antiarrhythmic as per EP. Appreciate input from cardiology/EP. 3. Patient completed antibiotics for possible UTI. Denies any current symptoms of UTI. 4. Oncology following for metastatic renal carcinoma. Patient currently on nivolumab that is being held this week due to acute pulmonary embolism. 5. Continue BiPAP for underlying obstructive sleep apnea as per pulmonology. Patient is scheduled for sleep study next month. 6. Hyponatremia Pending a.m. labs. 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 Patient is high risk of clinical deterioration given multiple comorbidities, including morbid obesity, atrial flutter and new diagnosis of pulmonary embolism with right heart strain. Plan of care discussed with patient at bedside. 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 He was found toevaluate a D-dimer and CTA was performed consistent with right main pulmonary artery clot with concern for right heart strain. He was transferred to [facility] and admitted under MICU started on heparin by weight. Vascular surgery was consulted and underwent EKOS on 08/02/2022. Oncology on consultation for metastatic renal cancer. He was also being treated with antibiotics for possible urinary tract infection. Patient developed atrial flutter and cardiology on consultation. Patient was started on beta-nitesh and dose was gradually increased to 100 mg every 8 hours. Given persistent tachycardia, electrophysiology was also involved and plan is to perform BONNIE and cardioversion home on Monday. Patient was transferred out of ICU service on 08/06/2022. Patient seen and examined today morning at bedside. He is feeling better overall however does have shortness of breath. Currently requiring 2 L nasal cannula oxygen. He did complain of cough and producing bloody sputum. Telemetry reviewed and patient is persistently tachycardic with heart rate in 120s however denies any palpitations or chest pain. Objective Vitals and Measurements T: 37 C (Oral) TMIN: 36.6 C (Axillary) TMAX: 37.4 C (Oral) HR: 128(Monitored) RR: 28 BP: 136/87 SpO2: 96% Intake and Output 7AM Yesterday to 7AM Today Intake and Output (Last 24 hours) Intake Administration Information 264.84 Oral Intake 450.00 Output Urine Voided 725.00 Stool Count 1.00 Urine Count 2.00 Total Summary Total Intake 714.84 Total Output 725.00 Fluid Balance -10.16 Physical Exam General: Patient is not in acute distress Neck: Supple, No JVD HEENT: Normocephalic, atraumatic, Cardiac: Regular rate and rhythm, S1 and S2 present, no murmurs, rubs, or gallops appreciated Lungs: Clear to auscultation bilaterally, no wheezes, rhonchi, or rales appreciated Abdomen: Morbidly obese, bowel sounds audible, abdomen is soft, nontender, non-distended, Musculoskeletal: Preserved ROM in all 4 extremities Extremities: No clubbing or cyanosis, pitting edema Skin: Warm, well perfused, no bruises Neurological: Alert and orientated x3, No gross focal neurological deficits Weight Dosing Weight: 159 kg (08/01/22) Medications Medications (19) Active Scheduled: (8) lidocaine 1% (MPF) 2 mL vial pf 2.5 mg 0.25 mL, Intradermal, prep pharm lidocaine patch REMOVAL 1 EA, Miscellaneous, q24h lidocaine topical 4% patch 1 patch(es), Transdermal, q24h menthol (Biofreeze) gel packet 1 julia, Topical, qDay metoprolol tartrate 100 mg tablet 100 mg 1 tab(s), Oral, q8h miconazole topical 2% Powder 1 julia, Topical, BID Nicoderm patch REMOVAL 1 EA, Miscellaneous, q24h nicotine 14 mg/24 hr ER patch 14 mg 1 patch(es), Transdermal, q24h Continuous: (2) Dextrose 5% with 0.45% NACL 1,000 mL 1,000 mL, Intravenous, 20 mL/hr heparin 25,000 unit(s) [15.723 unit(s)/kg/hr] + Dextrose 5% Premix Diluent 250 mL 250 mL, Intravenous, 25 mL/hr PRN: (9) acetaminophen 325 mg Tablet 650 mg 2 tab(s), Oral, q4h heparin 5,000 units/mL (1 mL) vial 8,750 unit(s) 1.75 mL, IV Push, q6h heparin 5,000 units/mL (1 mL) vial 6,360 unit(s) 1.27 mL, IV Push, q6h melatonin 5 mg tablet 5 mg 1 tab(s), Oral, qHS ondansetron 2 mg/ 1 mL 2 mL INJ 4 mg 2 mL, IV Push, q4h oxycodone 5 mg tablet (immediate release) 5 mg 1 tab(s), Oral, q4h oxycodone 5 mg tablet (immediate release) 10 mg 2 tab(s), Oral, q4h polyethylene glycol 3350 - UD packet 17 gram(s) 15 mL, Oral, BID senna 8.6 mg Tablet 8.6 mg 1 tab(s), Oral, qDay Lab Results 08/07 05:12 WBC: 13.9 H Hgb: 12.8 L Hct: 39.0 L Platelet: 201 Neutrophil %: 77.8 H Glucose Level: 128 H Sodium Level: 133 L Potassium Level: 5.0 BUN: 28.0 H Creatinine Lvl (s): 1.25 08/06 04:20 WBC: 13.4 H Hgb: 13.5 Hct: 41.1 Platelet: 177 Neutrophil %: 80.6 H Glucose Level: 117 H Sodium Level: 133 L Potassium Level: 5.2 H BUN: 23.0 H Creatinine Lvl (s): 1.18 Imaging Results and [address] CT Abdomen/Pelvis w/Contrast Result Date: August 04, 2022 Verified By: RAY MARTE MD CLINICAL STATEMENT: IMPRESSION: Confluent ground-glass and patchy opacities in the right middle and rightlower lobe. Correlate clinically and follow-up to resolution. No acute findings in the abdomen or pelvis. No evidence of new or recurrentdisease in the left nephrectomy bed. I have personally reviewed the images ofthis examination and agree with theresident's findings and interpretation. XR Chest 1 View Result Date: August 04, 2022 Verified By: ANDI TINOCO MD CLINICAL STATEMENT: IMPRESSION: Mild right atelectasis and or consolidation, also seen on the comparison. XR Chest 1 View Result Date: August 03, 2022 Verified By: CLINICAL STATEMENT: IMPRESSION: Ill-defined hazy opacification in the right lower lung. Considerationsinclude sequelae of pulmonary infarct as well as subsegmental atelectasis.Infectious/inflammatory etiologies are considered less likely especiallygiven current clinical picture. Preliminary Report was Dictated bya Resident Preliminary Report By: Trenton Cannon Dictated Time: 08/03/2022 6:55:11 AM PrelimTime: 08/03/2022 7:02:37 AM Ordering Provider: IVAN SAMS nodes 10-14 mm short axis,immeasurablelesions such as lymphangitic involvement, ascites, pleuraleffusions, etc.):? Unchanged lytic lesionwith pathological compression deformity at T11. Worsening areas of right lung base ground-glass andconsolidative opacitiesin comparison to CT thorax 08/01/2022. Liver, gallbladder, spleen, pancreas and adrenal glands are unremarkable. Right kidney is unremarkable. No hydronephrosis or urolithiasis. Patient isstatus post left nephrectomy. No new or residual disease noted in thenephrectomy bed. Uri nary bladder is unremarkable. Unremarkable prostate. Small bowel, colon and appendix are normal in caliber. There is no definitebowel wall thickening, intraperitoneal free air or focal fluid collection. Prominent subcentimeter stable celiac axis and portal caval lymph nodes arenonspecific. No pathologic lymphadenopathy. Nonaneurysmal abdominal aorta. No acute fracture. Unchanged lytic lesion pathological compression deformityat T11. Mild anasarca. Left lateral lumbar hernia containing a fewnonobstructed loops of bowel. IMPRESSION:Confluent ground-glass and patchy opacities in the right middleand rightlower lobe. Correlate clinically and follow-up to resolution. No acute findings in the abdomen or pelvis. No evidence of new or recurrentdisease in the left nephrectomy bed. I have personally reviewed the images of this examination and agree with theresident's findings and interpretation. IR Pulmonary Angio/EKOS Cath Place Result Date: August 02, 2022 Verified By: CLINICAL STATEMENT: IMPRESSION: XR Chest 1 View Result Date: August 02, 2022 Verified By: JANICE MITCHELL MD CLINICAL STATEMENT: IMPRESSION: Right infrahilar hazy opacifications likely on the basis of subsegmentalatelectasis. A developing infectious/inflammatory etiology cannot be ruledout however. I have personally reviewed the images of this examination and agree with theresident's findings and interpretation. EKG Electrocardiogram (EKG) - InProcess -- 08/07/22 12:47:00 EDT Assessment/Plan Acute hypoxic and hypercapnic respiratory failure Pulmonary embolism of right main pulmonary artery status post EKOS Atrial flutter Hemoptysis Hyponatremia Possible UTI Leukocytosis Metastatic renal cell carcinoma Morbid obesity Possible AKHIL pending sleep study Tobacco and alcohol use Plan: 1. Patient remains on heparin by weight. Currently on 2 L nasal cannula oxygen. Continue to wean off as tolerated. He is experiencing occasional hemoptysis likely secondary to pulmonary infarction. Anticipate improvement after switching to oral anticoagulation hopefully tomorrow after BONNIE. Continueto monitor closely. 2. Regarding atrial flutter, dose of beta-nitesh was increased to 100 mg 3 times daily. Toleratingwell however remains tachycardic. Patient will need cardioversion and antiarrhythmic. EP on board and plan is to perform BONNIE with cardioversion and possible antiarrhythmic afterwards. Appreciate input from cardiology/EP. 3. Patient completed antibiotics for possible UTI. Denies any current symptoms of UTI. 4. Oncology following for metastatic renal carcinoma. Patient currently on nivolumab that is being held due to acute change in his condition. 5. Continue BiPAP for underlying obstructive sleep apnea as per pulmonology. Patient is scheduled for sleep study next month. 6. Hyponatremia Repeat BMP tomorrow morning. Currently asymptomatic. Counseled on tobacco and alcohol cessation. Patient is high risk of clinical deterioration given multiple comorbidities, including morbid obesity, atrial flutter and new diagnosis of pulmonary embolism with right heart strain. Plan of care discussed with patient at bedside. Offered to call family however declined. Digitally Signed by MIKE RIVERA MD on 08/07/2022 08:01 PM [id number] Pulmonary Progress note Date of Service 08/07/2022 Chief Complaint Hemoptysis Subjective 42-year-old gentleman who presented to outside ED with chief complaint of shortness of breath as well as chest pain. He has a past medical history of metastatic renal cell carcinoma (status post leftnephrectomy 08/2020, radiation, ipilimumab, nivolumab), T11 vertebral body fracture due to lytic bone lesion, likely AKHIL pending sleep study . Patient admitted to [facility] acute submassive PE he is day 2 status post catheter directed thrombolysis, currently on IV heparin, still have cough productive will monitor the bloody secretions/hemoptysis, it is absolutely not massive, and this is due to pulm infarction. Objective Vitals and Measurements T: 37 C (Oral) TMIN: 36.6 C (Axillary) TMAX: 37.4 C (Oral) HR: 128(Monitored) RR: 28 BP: 136/87 SpO2: 96% Physical Exam HEENT: Clear Heart: Regular rhythm no additional heart sounds Lungs: Clear breath sounds bilaterally no wheezing Abdomen: Soft no tenderness Lower extremities: No edema Neuro: Alert, follows command moves all 4 extremities. Weight Dosing Weight: 159 kg (08/01/22) Medications Medications (19) Active Scheduled: (8) lidocaine 1% (MPF) 2 mL vial pf 2.5 mg 0.25 mL, Intradermal, prep pharm lidocaine patch REMOVAL 1 EA, Miscellaneous, q24h lidocaine topical 4% patch 1 patch(es), Transdermal, q24h menthol (Biofreeze) gel packet 1 julia, Topical, qDay metoprolol tartrate 100 mg tablet 100 mg 1 tab(s), Oral, q8h miconazole topical 2% Powder 1 julia, Topical, BID Nicoderm patch REMOVAL 1 EA, Miscellaneous, q24h nicotine 14 mg/24 hr ER patch 14 mg 1 patch(es), Transdermal, q24h Continuous: (2) Dextrose 5% with 0.45% NACL 1,000 mL 1,000 mL, Intravenous, 20 mL/hr heparin 25,000 unit(s) [15.723 unit(s)/kg/hr] + Dextrose 5% Premix Diluent 250 mL 250 mL, Intravenous, 25 mL/hr PRN: (9) acetaminophen 325 mg Tablet 650 mg 2 tab(s), Oral, q4h heparin 5,000 units/mL (1 mL) vial 8,750 unit(s) 1.75 mL, IV Push, q6h heparin 5,000 units/mL (1 mL) vial 6,360 unit(s) 1.27 mL, IV Push, q6h melatonin 5 mg tablet 5 mg 1 tab(s), Oral, qHS ondansetron 2 mg/ 1 mL 2 mL INJ 4 mg 2 mL, IV Push, q4h oxycodone 5 mg tablet (immediate release) 5 mg 1 tab(s), Oral, q4h oxycodone 5 mg tablet (immediate release) 10 mg 2 tab(s), Oral, q4h polyethylene glycol 3350 - UD packet 17 gram(s) 15 mL, Oral, BID senna 8.6 mg Tablet 8.6 mg 1 tab(s), Oral, qDay Lab Results 08/07 05:12 WBC: 13.9 H Hgb: 12.8 L Hct: 39.0 L Platelet: 201 Neutrophil %: 77.8 H Glucose Level: 128 H Sodium Level: 133 L Potassium Level: 5.0 BUN: 28.0 H Creatinine Lvl (s): 1.25 08/06 04:20 WBC: 13.4 H Hgb: 13.5 Hct: 41.1 Platelet: 177 Neutrophil %: 80.6 H Glucose Level: 117 H Sodium Level: 133 L Potassium Level: 5.2 H BUN: 23.0 H Creatinine Lvl (s): 1.18 08/06 01:00 Potassium Level: 5.8 H EKG Electrocardiogram (EKG) - Ordered -- 08/07/22 12:47:00 EDT Assessment/Plan 1. Acute submassive pulmonary emboli status post catheter directed thrombolysis/EKOS. With hemoptysis due to pulm infarction 2. Obesity with probable obstructive sleep apnea. 3. Metastatic renal Carcinoma status post left-sided nephrectomy 2020, still followed by oncology. 4. A-fib/flutter. Plan: 1. Currently on 2 L Roxiprin nasal cannula has done well, will adjust BiPAP to 15/8 cmH2O at night for proper obstructive sleep apnea till sleep study is done with patient on the schedule for later next month. 2. We will change anticoagulation from IV heparin that it has been fluctuating with diabetes. aPTT been attempted to high, will place him on Eliquis 10 mg p.o. twice daily if that is okay with vascular surgery. 3. Remains on beta-nitesh seem to be well-tolerated. Digitally Signed by MIRTA WICK MD on 08/07/2022 12:52 PM [id number] Note Date of Service 08/07/2022 Chief Complaint Atrial flutter Subjective 42-year-old male with metastatic RCC and PE status post cardiac arrest with lateral pulmonary emboli and EKOS thrombectomy, alcohol use, obstructive sleep apnea noted to have atrial flutter with rapid ventricular response and RV dysfunction. He is currently on medical treatment in the surgical intensive care unit awaiting a BONNIE guided cardioversion zoroastrianism of sinus rhythm. The echocardiogram shows evidence of a preserved left ventricle function and a severely reduced RV function likely fromthe pulmonary emboli. On metoprolol succinate treatment and intravenous heparin. Objective Vitals and Measurements T: 37 C (Oral) TMIN: 36.6 C (Axillary) TMAX: 37.4 C (Oral) HR: 128(Monitored) RR: 28 BP: 136/87 SpO2: 96% Intake and Output 7AM Yesterday to 7AM Today Intake and Output (Last 24 hours) Intake Administration Information 264.84 Oral Intake 450.00 Output Urine Voided 725.00 Stool Count 1.00 Urine Count 2.00 Total Summary Total Intake 714.84 Total Output 725.00 Fluid Balance -10.16 Physical Exam Physical Exam: General: well appearing, no acute distress Respiratory: normal chest wall expansion, CTA B, no r/r/w, no rubs Cardiovascular: RRR, no m/r/g, Normal S1 and S2 Abdomen: Soft, non-tender, non-distended, normal bowel sounds in all quadrants, no hepatosplenomegaly, no tympany Integumentary: warm, dry, and pink, with no rash, purpura, or petechia Neurological: 2+ patellar reflexes, Cranial Nerves II-XII grossly intact, no tics, normal sensationto pressure and light touch Weight Dosing Weight: 159 kg (08/01/22) Medications Medications (19) Active Scheduled: (8) lidocaine 1% (MPF) 2 mL vial pf 2.5 mg 0.25 mL, Intradermal, prep pharm lidocaine patch REMOVAL 1 EA, Miscellaneous, q24h lidocaine topical 4% patch 1 patch(es), Transdermal, q24h menthol (Biofreeze) gel packet 1 julia, Topical, qDay metoprolol tartrate 100 mg tablet 100 mg 1 tab(s), Oral, q8h miconazole topical 2% Powder 1 julia, Topical, BID Nicoderm patch REMOVAL 1 EA, Miscellaneous, q24h nicotine 14 mg/24 hr ER patch 14 mg 1 patch(es), Transdermal, q24h Continuous: (2) Dextrose 5% with 0.45% NACL 1,000 mL 1,000 mL, Intravenous, 20 mL/hr heparin 25,000 unit(s) [15.723 unit(s)/kg/hr] + Dextrose 5% Premix Diluent 250 mL 250 mL, Intravenous, 25 mL/hr PRN: (9) acetaminophen 325 mg Tablet 650 mg 2 tab(s), Oral, q4h heparin 5,000 units/mL (1 mL) vial 8,750 unit(s) 1.75 mL, IV Push, q6h heparin 5,000 units/mL (1 mL) vial 6,360 unit(s) 1.27 mL, IV Push, q6h melatonin 5 mg tablet 5 mg 1 tab(s), Oral, qHS ondansetron 2 mg/ 1 mL 2 mL INJ 4 mg 2 mL, IV Push, q4h oxycodone 5 mg tablet (immediate release) 5 mg 1 tab(s), Oral, q4h oxycodone 5 mg tablet (immediate release) 10 mg 2 tab(s), Oral, q4h polyethylene glycol 3350 - UD packet 17 gram(s) 15 mL, Oral, BID senna 8.6 mg Tablet 8.6 mg 1 tab(s), Oral, qDay Lab Results 08/07 05:12 WBC: 13.9 H Hgb: 12.8 L Hct: 39.0 L Platelet: 201 Neutrophil %: 77.8 H Glucose Level: 128 H Sodium Level: 133 L Potassium Level: 5.0 BUN: 28.0 H Creatinine Lvl (s): 1.25 08/06 04:20 WBC: 13.4 H Hgb: 13.5 Hct: 41.1 Platelet: 177 Neutrophil %: 80.6 H Glucose Level: 117 H Sodium Level: 133 L Potassium Level: 5.2 H BUN: 23.0 H Creatinine Lvl (s): 1.18 08/06 01:00 Potassium Level: 5.8 H EKG Electrocardiogram (EKG) - Ordered -- 08/07/22 12:47:00 EDT Assessment/Plan Orders: Dextrose 5% with 0.45% NaCl intravenous solution 1,000 mL, Start: 08/07/22 12:47:00 EDT, Rate: 20 mL/hr, 08/07/22 12:47:00 EDT lidocaine, Start: 08/07/22 13:00:00 EDT, Dose = 2.5 mg, = 0.25 mL, Intradermal, prep pharm, 08/07/22 12:47:00 EDT Call Parameters Cardioversion (CV) Communication Order (scheduled) Complete EKG Comments: Entered secondary to EKG order. Electrocardiogram IV Catheter Insertion/Care NPO after Midnight NPO for Procedure Patient Education Prn Adapter Prothrombin Time - Panel Sign Consent Sign Consent Skin Prep/Scrub Vital Signs Void/Diapers alumni relations coordinator to procedure/surgery Weight A flutter. Currently still tachycardic. Will require conversion to sinus rhythm following a BONNIE to rule out any major left atrial appendage thrombi. We will continue with anticoagulation and likely initiate antiarrhythmic therapy for sinus rhythm maintenance long-term. In view of the comorbidities and body habitus this may be required to be performed under anesthesiology guidance. The patient's respiratory status will be to be reassessed in the a.m. prior to the procedure. Digitally Signed by RAJAN OROZCO MD on 08/07/2022 12:50 PM [id number] Note Date of Service 08/06/2022 Chief Complaint Atrial flutter Subjective 42-year-old male with metastatic RCC and PE status post cardiac arrest with lateral pulmonary emboli and EKOS thrombectomy, alcohol use, obstructive sleep apnea noted to have atrial flutter with rapid ventricular response and RV dysfunction. He is currently on medical treatment in the surgical intensive care unit awaiting a BONNIE guided cardioversion zoroastrianism of sinus rhythm. The echocardiogram shows evidence of a preserved left ventricle function and a severely reduced RV function likely fromthe pulmonary emboli. On metoprolol succinate treatment and intravenous heparin. Objective Vitals and Measurements T: 36.8 C (Oral) TMIN: 36.6 C (Oral) TMAX: 37 C (Oral) HR: 125(Monitored) RR: 20 BP: 102/62 SpO2: 96% Intake and Output 7AM Yesterday to 7AM Today Intake and Output (Last 24 hours) Intake Administration Information 253.00 Oral Intake 500.00 Output Urine Voided 2100.00 Urine Count 1.00 Total Summary Total Intake 753.00 Total Output 2100.00 Fluid Balance -1347.00 Physical Exam Physical Exam: General: well appearing, no acute distress Respiratory: normal chest wall expansion, CTA B, no r/r/w, no rubs Cardiovascular: RRR, no m/r/g, Normal S1 and S2 Abdomen: Soft, non-tender, non-distended, normal bowel sounds in all quadrants, no hepatosplenomegaly, no tympany Integumentary: warm, dry, and pink, with no rash, purpura, or petechia Neurological: 2+ patellar reflexes, Cranial Nerves II-XII grossly intact, no tics, normal sensationto pressure and light touch Weight Dosing Weight: 159 kg (08/01/22) Medications Medications (18) Active Scheduled: (8) lidocaine patch REMOVAL 1 EA, Miscellaneous, q24h lidocaine topical 4% patch 1 patch(es), Transdermal, q24h menthol (Biofreeze) gel packet 1 julia, Topical, qDay metoprolol tartrate 100 mg tablet 100 mg 1 tab(s), Oral, q8h miconazole topical 2% Powder 1 julia, Topical, BID Nicoderm patch REMOVAL 1 EA, Miscellaneous, q24h nicotine 14 mg/24 hr ER patch 14 mg 1 patch(es), Transdermal, q24h Pharmacy To Dose 1 EA, Miscellaneous, Daily Continuous: (1) heparin 25,000 unit(s) [15.723 unit(s)/kg/hr] + Dextrose 5% Premix Diluent 250 mL 250 mL, Intravenous, 25 mL/hr PRN: (9) acetaminophen 325 mg Tablet 650 mg 2 tab(s), Oral, q4h heparin 5,000 units/mL (1 mL) vial 8,750 unit(s) 1.75 mL, IV Push, q6h heparin 5,000 units/mL (1 mL) vial 6,360 unit(s) 1.27 mL, IV Push, q6h melatonin 5 mg tablet 5 mg 1 tab(s), Oral, qHS ondansetron 2 mg/ 1 mL 2 mL INJ 4 mg 2 mL, IV Push, q4h oxycodone 5 mg tablet (immediate release) 5 mg 1 tab(s), Oral, q4h oxycodone 5 mg tablet (immediate release) 10 mg 2 tab(s), Oral, q4h polyethylene glycol 3350 - UD packet 17 gram(s) 15 mL, Oral, BID senna 8.6 mg Tablet 8.6 mg 1 tab(s), Oral, qDay Lab Results 08/06 04:20 WBC: 13.4 H Hgb: 13.5 Hct: 41.1 Platelet: 177 Neutrophil %: 80.6 H Glucose Level: 117 H Sodium Level: 133 L Potassium Level: 5.2 H BUN: 23.0 H Creatinine Lvl (s): 1.18 08/06 01:00 Potassium Level: 5.8 H 08/05 15:04 Glucose Level: 141 H Sodium Level: 131 L Potassium Level: 5.6 H BUN: 27.0 H Creatinine Lvl (s): 1.24 08/05 04:02 WBC: 14.1 H Hgb: 14.3 Hct: 44.0 Platelet: 154 Neutrophil %: 82.2 H Glucose Level: 128 H Sodium Level: 132 L Potassium Level: 5.2 H BUN: 23.0 H Creatinine Lvl (s): 1.20 EKG No qualifying data available. Assessment/Plan Renal cancer Atrial flutter: Continues to be on adequate rate control. On intravenous heparin awaiting a BONNIE guided cardioversion. Tolerating oral metoprolol for rate control without any major side effects. Plans for BONNIE guided cardioversion on 08/08/2022. Overall doing well and stable. Plan: As above continue with rate control and awaiting a BONNIE guided cardioversion for sinus rhythm zoroastrianism. Digitally Signed by RAJAN OROZCO MD on 08/06/2022 02:19 PM [id number] Note Date of Service 08/06/2022 Subjective 42-year-old gentleman who presented to outside ED with chief complaint of shortness of breath as well as chest pain. He has a past medical history of metastatic renal cell carcinoma (status post leftnephrectomy 08/2020, radiation, ipilimumab, nivolumab), T11 vertebral body fracture due to lytic bone lesion, likely AKHIL pending sleep study. The patient reportedly had 3 days of right-sided chest pain and shortness of breath and felt like "[he] was going to ." The patient was found to have bilateral pulmonary emboli with evidence of right heart strain and was initially managed in the medical ICU. He underwent pulmonary EKOS and was then managed in the surgical ICU. In the last 24 hours: Continue with atrial flutter. Tolerating p.o. Lopressor. Respiratory status improved. Oxygen has been weaned down. Today I rounded on the patient with the nursing staff, rounding critical care nurse, and the entirecritical care team available. I've reviewed the detailed handwritten notes as well as any dictations performed. In addition to this I would like to add the following: Objective Vitals and Measurements T: 36.8 C (Oral) TMIN: 36.2 C (Oral) TMAX: 37 C (Oral) HR: 126(Monitored) RR: 28 BP: 141/99 SpO2: 97% Intake and Output 7AM Yesterday to 7AM Today Intake and Output (Last 24 hours) Intake Administration Information 259.00 Oral Intake 1380.00 Output Urine Voided 2500.00 Total Summary Total Intake 1639.00 Total Output 2500.00 Fluid Balance -861.00 Physical Exam - GENERAL: No acute distress. - HEENT: EOMI. moist mucous membranes. - LUNGS: Decreased bilaterally. No wheezes. - CARDIOVASCULAR: Tachycardic, regular - ABDOMEN: Obese, soft - EXTREMITIES: No edema. - SKIN: No rashes or lesions. Warm. - NEUROLOGIC: No focal neurological deficits. - PSYCHIATRIC: Cooperative. Appropriate mood and affect. Weight Dosing Weight: 159 kg (08/01/22) Medications Medications (20) Active Scheduled: (9) folic acid 1 mg tablet 1 mg 1 tab(s), Oral, qDay lidocaine patch REMOVAL 1 EA, Miscellaneous, q24h lidocaine topical 4% patch 1 patch(es), Transdermal, q24h menthol (Biofreeze) gel packet 1 julia, Topical, qDay metoprolol tartrate 100 mg tablet 100 mg 1 tab(s), Oral, BID miconazole topical 2% Powder 1 julia, Topical, BID Nicoderm patch REMOVAL 1 EA, Miscellaneous, q24h nicotine 14 mg/24 hr ER patch 14 mg 1 patch(es), Transdermal, q24h thiamine (w/calcium) 100 mg tablet 100 mg 1 tab(s), Oral, qDay Continuous: (1) heparin 25,000 unit(s) [15.723 unit(s)/kg/hr] + Dextrose 5% Premix Diluent 250 mL 250 mL, Intravenous, 25 mL/hr PRN: (10) acetaminophen 325 mg Tablet 650 mg 2 tab(s), Oral, q4h heparin 5,000 units/mL (1 mL) vial 8,750 unit(s) 1.75 mL, IV Push, q6h heparin 5,000 units/mL (1 mL) vial 6,360 unit(s) 1.27 mL, IV Push, q6h melatonin 5 mg tablet 5 mg 1 tab(s), Oral, qHS ondansetron 2 mg/ 1 mL 2 mL INJ 4 mg 2 mL, IV Push, q4h oxycodone 5 mg tablet (immediate release) 5 mg 1 tab(s), Oral, q4h oxycodone 5 mg tablet (immediate release) 10 mg 2 tab(s), Oral, q4h polyethylene glycol 3350 - UD packet 17 gram(s) 15 mL, Oral, BID senna 8.6 mg Tablet 8.6 mg 1 tab(s), Oral, qDay sodium zirconium cyclosilicate 10 g REC packet 10 gram(s) 1 packet(s), Oral, q8hr Lab Results 08/06 04:20 WBC: 13.4 H Hgb: 13.5 Hct: 41.1 Platelet: 177 Neutrophil %: 80.6 H Glucose Level: 117 H Sodium Level: 133 L Potassium Level: 5.2 H BUN: 23.0 H Creatinine Lvl (s): 1.18 08/06 01:00 Potassium Level: 5.8 H 08/05 15:04 Glucose Level: 141 H Sodium Level: 131 L Potassium Level: 5.6 H BUN: 27.0 H Creatinine Lvl (s): 1.24 08/05 04:02 WBC: 14.1 H Hgb: 14.3 Hct: 44.0 Platelet: 154 Neutrophil %: 82.2 H Glucose Level: 128 H Sodium Level: 132 L Potassium Level: 5.2 H BUN: 23.0 H Creatinine Lvl (s): 1.20 EKG EKG - Completed -- 08/04/22 8:00:00 EDT Assessment/Plan Assessment: Pulmonary embolism right main pulmonary artery Likely pulmonary infarct Leukocytosis , possible UTI Hypoxemic respiratory failure Atrial flutter/tachyarrhythmia Comorbidities include: Metastatic renal cell carcinoma, tobacco use, obesity, likely AKHIL, regular alcohol use Plan: Wean nasal cannula to maintain saturation more than 92% heparin by weight for now Cardiology consulted for atrial flutter. Appreciate recommendations. Patient has been increased to metoprolol 100 mg twice daily. We will increase this further to 100 p.o. 3 times daily. There is consideration for other antiarrhythmics or procedures to achieve rhythm control. Appreciate input from Dr. Triana of oncology Discontinued ceftriaxone We will transfer patient to the coronary care unit under the hospitalist service with pulmonary to continue to follow for BiPAP Change diet to low potassium. Pablo Juarez M.D., [facility] Digitally Signed by PABLO JUAREZ MD on 08/06/2022 08:57 AM [id number] Cardiology Consult note Date of Service 08/05/2022 Reason for Consultation Atrial flutter Referring Physician General cardiology service History of Present Illness Lyndsay Lopez is a 42-year-old male with a significant past medical history of metastatic renal cell carcinoma s/p Left cytoreductive nephrectomy 08/14/20 (now receiving nivolumab), T11 vertebral body fracture due to lytic bone lesion, obesity, tobacco use, EtOH use, and possible AKHIL who presented on 08/01/2022 with shortness of breath and chest pain found to have pulmonary embolism with significant clot burden in the right main pulmonary artery and RV strain. Patient underwent bilateral pulmonary EKOS thrombolysis on 08/02/2022. Hospitalization complicated by atrial flutter with RVR. Review of Systems A thorough 14 point review of system was done, and is negative except for what was listed above in the HPI section Physical Exam Vitals and Measurements T: 36.2 C (Oral) TMIN: 36.0 C (Oral) TMAX: 36.7 C (Oral) HR: 122(Monitored) RR: 28 BP: 113/96 SpO2:99% Weight Dosing Weight: 159 kg (08/01/22) GENERAL: Patient is under no acute distress,and in no discomfort HEAD: Normocephalic, Atraumatic EYES/EARS: Pupils are equal and reactive, No scleral icterus. NOSE: Normal appearing nasal nares MOUTH Good oral hygiene, Moist oral mucosa, no pharyngeal erythema or exudates noted, undeviated uvula NECK: Supple, Nontender, No thyromegaly, No JVD, Midline trachea, No lymphadenopathy PULMONARY: Normal breathing effort, clear to auscultation bilaterally CARDIAC: tachycardia, no murmur, gallops, or rubs. No lower extremity edema. ABDOMEN: soft, Nontender, Normal active bowel sounds BACK: No obvious deformities. : Deferred MSK: Warm bilaterally chronic skin changes noted SKIN: No PATHOLOGIC moles, rashes, lesions or ulcers were noted other than what is listed above NEURO: Alert and Oriented 4, Cranial nerves II to XII grossly intact. No focal. deficits grossly noted PSYCH: Pleasant, Good attention Lab Results 08/05 04:02 WBC: 14.1 H Hgb: 14.3 Hct: 44.0 Platelet: 154 Neutrophil %: 82.2 H Glucose Level: 128 H Sodium Level: 132 L Potassium Level: 5.2 H BUN: 23.0 H Creatinine Lvl (s): 1.20 08/04 14:58 Potassium Level: 5.0 08/04 14:38 Potassium Level: 5.0 08/04 06:24 WBC: 14.6 H Hgb: 15.1 Hct: 46.9 Platelet: 182 Neutrophil %: 82.5 H Glucose Level: 115 H Sodium Level: 137 Potassium Level: 6.1 C BUN: 27.0 H Creatinine Lvl (s): 1.41 H Imaging Results and Diagnostics CT Abdomen/Pelvis w/Contrast Result Date: August 04, 2022 Verified By: RAY MARTE MD CLINICAL STATEMENT: IMPRESSION: Confluent ground-glass and patchy opacities in the right middle and rightlower lobe. Correlate clinically and follow-up to resolution. No acute findings in the abdomen or pelvis. No evidence of new or recurrentdisease in the left nephrectomy bed. I have personally reviewed the images ofthis examination and agree with theresident's findings and interpretation. XR Chest 1 View Result Date: August 04, 2022 Verified By: ANDI TINOCO MD CLINICAL STATEMENT: IMPRESSION: Mild right atelectasis and or consolidation, also seen on the comparison. XR Chest 1 View Result Date: August 03, 2022 Verified By: CLINICAL STATEMENT: IMPRESSION: Ill-defined hazy opacification in the right lower lung. Considerationsinclude sequelae of pulmonary infarct as well as subsegmental atelectasis.Infectious/inflammatory etiologies are considered less likely especiallygiven current clinical picture. Preliminary Report was Dictated bya Resident Preliminary Report By: Trenton Cannon Dictated Time: 08/03/2022 6:55:11 AM PrelimTime: 08/03/2022 7:02:37 AM Ordering Provider: IVAN SAMS nodes 10-14 mm short axis,immeasurablelesions such as lymphangitic involvement, ascites, pleuraleffusions, etc.):? Unchanged lytic lesionwith pathological compression deformity at T11. Worsening areas of right lung base ground-glass andconsolidative opacitiesin comparison to CT thorax 08/01/2022. Liver, gallbladder, spleen, pancreas and adrenal glands are unremarkable. Right kidney is unremarkable. No hydronephrosis or urolithiasis. Patient isstatus post left nephrectomy. No new or residual disease noted in thenephrectomy bed. Uri nary bladder is unremarkable. Unremarkable prostate. Small bowel, colon and appendix are normal in caliber. There is no definitebowel wall thickening, intraperitoneal free air or focal fluid collection. Prominent subcentimeter stable celiac axis and portal caval lymph nodes arenonspecific. No pathologic lymphadenopathy. Nonaneurysmal abdominal aorta. No acute fracture. Unchanged lytic lesion pathological compression deformityat T11. Mild anasarca. Left lateral lumbar hernia containing a fewnonobstructed loops of bowel. IMPRESSION:Confluent ground-glass and patchy opacities in the right middleand rightlower lobe. Correlate clinically and follow-up to resolution. No acute findings in the abdomen or pelvis. No evidence of new or recurrentdisease in the left nephrectomy bed. I have personally reviewed the images of this examination and agree with theresident's findings and interpretation. IR Pulmonary Angio/EKOS Cath Place Result Date: August 02, 2022 Verified By: CLINICAL STATEMENT: IMPRESSION: XR Chest 1 View Result Date: August 02, 2022 Verified By: JANICE MITCHELL MD CLINICAL STATEMENT: IMPRESSION: Right infrahilar hazy opacifications likely on the basis of subsegmentalatelectasis. A developing infectious/inflammatory etiology cannot be ruledout however. I have personally reviewed the images of this examination and agree with theresident's findings and interpretation. 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 Hospitalization complicated by atrial flutter with RVR. Transthoracic echocardiogram demonstrates preserved LVEF with severely reduced RV. Patient on metoprolol succinate 50 mg twice daily. Given significant reduction in RV would cautiously uptitrate beta- nitesh. Could consider digoxin for better rate control strategy once hyperkalemia has improved. General cardiology colleagues also on board. Ultimately patient will do better with zoroastrianism of sinus rhythm. Recommend BONNIE/DCCV under anesthesia as patient has episodes of hypoxia and concern for decompensation. May also consider ablation in outpatient setting. [id number] score only 1 however given hypercoagulable state would recommendanticoagulation at discharge. Remaining management per primary Assessment and plan was discussed with Dr. Alvarenga. Any changes in assessment/plan, will be added as an addendum to this note by the attending physician. This note was transcribed via voice recognition software. Please forgive any errors or typos resulting from the use of this technology. Lesley Green DO, MS Court Collections Officer (PGY-5) Pager [phone]/ Cortext Problem List/Past Medical History Ongoing Alcohol abuse Left renal mass. 9.6-cm. With perinephric fat invasion. With lytic bony lesion and pulmonary nodules concerning for mets. BS, 07/2020 - neg. CT brain, 07/2020 - neg. S/P Radical nephrectomy 08/14/20. Metastatic renal cell carcinoma. S/P Left cytoreductive nephrectomy 08/14/20. Final path - ccRCC withsarcomatoid features. No chronic diseases present T11 vertebral fracture Tobacco abuse Viral gastroenteritis Cigarette smoker Active Lung nodule, multiple Active Marijuana user Active Secondary malignant neoplasm of bone (disorder) Active Historical Renal cell carcinoma (disorder) Active Procedure/Surgical History Tooth extraction: 08/28/21 Nephrectomy, including partial ureterectomy, any open approach including rib resection; radical, with regional lymphadenectomy and/or vena caval thrombectomy: 08/14/20 Tonsillectomy Boost radiation therapy Chemotherapy Medications Inpatient Biofreeze gel packet, 1 julia, Topical, qDay folic acid, 1 mg= 1 tab(s), Oral, qDay Heparin for IV 25,000 unit(s) [15.723 unit(s)/kg/hr] + Dextrose 5% Premix Diluent 250 mL Heparin HBW Bolus 5000 units/mL, 8750 unit(s)= 1.75 mL, 70 unit(s)/kg, IV Push, q6h, PRN Heparin HBW Bolus 5000 units/mL, 6360 unit(s)= 1.27 mL, 40 unit(s)/kg, IV Push, q6h, PRN lidocaine (lidocaine Patch REMOVAL), 1 EA, Miscellaneous, q24h lidocaine 4% topical patch, 1 patch(es), Transdermal, q24h Lokelma, 10 gram(s)= 1 packet(s), Oral, q8hr, PRN Lopressor, 50 mg= 1 tab(s), Oral, BID melatonin, 5 mg= 1 tab(s), Oral, qHS, PRN miconazole 2% topical powder, 1 julia, Topical, BID Miralax Powder Packet, 17 gram(s)= 15 mL, Oral, BID, PRN Nicoderm C-Q 14 mg/24 hr transdermal film, extended release, 14 mg= 1 patch(es), Transdermal, q24h nicotine (Nicoderm Patch REMOVAL), 1 EA, Miscellaneous, q24h oxyCODONE 5 mg oral tablet ( IMMEDIATE release ), 5 mg= 1 tab(s), Oral, q4h, PRN oxyCODONE 5 mg oral tablet ( IMMEDIATE release ), 10 mg= 2 tab(s), Oral, q4h, PRN senna, 8.6 mg= 1 tab(s), Oral, qDay, PRN thiamine, 100 mg= 1 tab(s), Oral, qDay Tylenol, 650 mg= 2 tab(s), Oral, q4h, PRN Zofran, 4 mg= 2 mL, IV Push, q4h, PRN Home Miralax 255 gm bottle, Oral, qDay, PRN oxyCODONE 5 mg oral tablet ( IMMEDIATE release ), 5 mg= 1 tab(s), Oral, q8h, PRN senna 8.6 mg oral tablet, 17.2 mg= 2 tab(s), Oral, BID, PRN Allergies penicillin (Swelling) Social History Smoking Status - 11/07/2016 Current every day smoker Alcohol - Medium Risk, 11/07/2016 Use: Current. Type: Beer. Frequency: Daily. Previous treatment: Outpatient. Has alcohol use interfered with work or home life: No. Do you ever drink more than intended: Yes. Has anyone been hurt or at risk by your drinking: Yes. Ready to change: Yes., 03/07/2022 Employment/School Status: Employed., 12/16/2020 Home/Environment Domestic Concerns: None. Living situation: Home with assistance. 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 Safe place to go: Yes. Lives In: Single level home, 1st floor bedroom, 1st floor bathroom, 1st floor laundry., 08/14/2020 Nutrition/Health Caffeine intake amount: 1 can of pop once a week., 11/06/2020 Type of diet: Regular. Appetite Excellent. Eating Difficulties None., 08/14/2020 Substance Abuse - Denies Substance Abuse, 11/07/2016 Use: Current. Type: Marijuana. Frequency: 1-2 times per month. IV drug use; No. Ready to change: No. Concerns about substance abuse in household: No., 08/14/2020 Tobacco Nicotine Use: 10 or more cigarettes (1/2 pack or more)/day in last 30 days. Type: Cigarettes. Started at age: 13 Years. Ready to change: Yes., 08/07/2020 Family History Bladder cancer: Negative: Mother, Father, Sister, Brother, Daughter, Son and Grandparent. Crohn's disease: Sister. Diabetes: Father. HTN - Hypertension: Mother and Father. Heart attack: Father. Heart disease: Negative: Mother, Father, Sister, Brother, Daughter, Son and Grandparent. Hypertension: Mother and Father.Negative: Sister, Brother, Daughter, Son and Grandparent. Kidney disease: Negative: Mother, Father, Sister, Brother, Daughter, Son and Grandparent. Kidney stone: Mother and Sister.Negative: Father, Brother, Daughter, Son and Grandparent. Prostate cancer: Negative: Father, Brother and Son. Renal cancer: Negative: Mother, Father, Sister, Brother, Daughter, Son and Grandparent. Rheumatoid arthritis: Mother. Immunizations SARS-CoV-2 (COVID-19) mRNA-1273 vaccine: 0.25 unknown unit (04/15/21) SARS-CoV-2 (COVID-19) mRNA-1273 vaccine: 0.5 unknown unit (10/15/20) SARS-CoV-2 (COVID-19) mRNA-1273 vaccine: 0.5 unknown unit (09/17/20) Digitally Signed by LESLEY GREEN DO on 08/05/2022 03:41 PM [id number] Progress note Date of Service 08/05/22 Chief Complaint SOB RFC Atrial flutter HPI 42-year-old man with past medical history of medical history of metastatic renal cell carcinoma (status post left nephrectomy 08/2020, radiation, ipilimumab, nivolumab), T11 vertebral body fracture due to lytic bone lesion, suspected AKHIL/OHS tobacco abuse, alcohol abuse and morbid obesity came into the emergency department at [facility] due to complaints of shortness of breath and chest pain. Initial CT angio of the chest showed right main pulmonary artery embolism with concern for right heart strain. Patient was transferred to the [facility] for further management under MICU care. During stay vascular surgery was consulted for EKOS thrombolysis. Patient also underwent transthoracic echoc ardiogram during stay which showed LVEF of 55 to 60% with moderately to severely reduced RV function. Postoperative course complicated by tachyarrhythmia. Initial EKG concerning for 2:1 atrial flutter. Cardiology consulted for atrial flutter. Subjective No acute events overnight No new complaints Objective Vitals and Measurements T: 36.7 C (Oral) TMIN: 36.0 C (Oral) TMAX: 36.7 C (Oral) HR: 121(Monitored) RR: 21 BP: 131/87 SpO2:95% Intake and Output 7AM Yesterday to 7AM Today Intake and Output (Last 24 hours) Intake Administration Information 453.03 Oral Intake 2620.00 Output Urine Voided 2075.00 Urine Count 1.00 Total Summary Total Intake 3073.03 Total Output 2075.00 Fluid Balance 998.03 Physical Exam General: AAOX3, mild distress, morbidly obese man HEENT: Anicteric sclera, MMM Neck: Trachea midline, no JVD appreciated CVS: Irregular rate, regular rhythm, normal S1/S2, no murmurs/rubs/gallops Lung: Decreased lung sounds at the bases, increased work of breathing Abd: Soft, NT/ND Extrem: WWP, trace LE edema Skin: Warm, Intact Neuro: AAOX3, spontaneous movement of all extremities Psych: Appropriate mood & affect Weight Dosing Weight: 159 kg (08/01/22) Medications Medications (20) Active Scheduled: (9) folic acid 1 mg tablet 1 mg 1 tab(s), Oral, qDay lidocaine patch REMOVAL 1 EA, Miscellaneous, q24h lidocaine topical 4% patch 1 patch(es), Transdermal, q24h menthol (Biofreeze) gel packet 1 julia, Topical, qDay metoprolol tartrate 100 mg tablet 100 mg 1 tab(s), Oral, BID miconazole topical 2% Powder 1 julia, Topical, BID Nicoderm patch REMOVAL 1 EA, Miscellaneous, q24h nicotine 14 mg/24 hr ER patch 14 mg 1 patch(es), Transdermal, q24h thiamine (w/calcium) 100 mg tablet 100 mg 1 tab(s), Oral, qDay Continuous: (1) heparin 25,000 unit(s) [15.723 unit(s)/kg/hr] + Dextrose 5% Premix Diluent 250 mL 250 mL, Intravenous, 25 mL/hr PRN: (10) acetaminophen 325 mg Tablet 650 mg 2 tab(s), Oral, q4h heparin 5,000 units/mL (1 mL) vial 8,750 unit(s) 1.75 mL, IV Push, q6h heparin 5,000 units/mL (1 mL) vial 6,360 unit(s) 1.27 mL, IV Push, q6h melatonin 5 mg tablet 5 mg 1 tab(s), Oral, qHS ondansetron 2 mg/ 1 mL 2 mL INJ 4 mg 2 mL, IV Push, q4h oxycodone 5 mg tablet (immediate release) 5 mg 1 tab(s), Oral, q4h oxycodone 5 mg tablet (immediate release) 10 mg 2 tab(s), Oral, q4h polyethylene glycol 3350 - UD packet 17 gram(s) 15 mL, Oral, BID senna 8.6 mg Tablet 8.6 mg 1 tab(s), Oral, qDay sodium zirconium cyclosilicate 10 g REC packet 10 gram(s) 1 packet(s), Oral, q8hr Lab Results 08/05 04:02 WBC: 14.1 H Hgb: 14.3 Hct: 44.0 Platelet: 154 Neutrophil %: 82.2 H Glucose Level: 128 H Sodium Level: 132 L Potassium Level: 5.2 H BUN: 23.0 H Creatinine Lvl (s): 1.20 08/04 14:58 Potassium Level: 5.0 08/04 14:38 Potassium Level: 5.0 08/04 06:24 WBC: 14.6 H Hgb: 15.1 Hct: 46.9 Platelet: 182 Neutrophil %: 82.5 H Glucose Level: 115 H Sodium Level: 137 Potassium Level: 6.1 C BUN: 27.0 H Creatinine Lvl (s): 1.41 H Imaging Results and Diagnostics CT Abdomen/Pelvis w/Contrast Result Date: August 04, 2022 Verified By: RAY MARTE MD CLINICAL STATEMENT: IMPRESSION: Confluent ground-glass and patchy opacities in the right middle and rightlower lobe. Correlate clinically and follow-up to resolution. No acute findings in the abdomen or pelvis. No evidence of new or recurrentdisease in the left nephrectomy bed. I have personally reviewed the images ofthis examination and agree with theresident's findings and interpretation. XR Chest 1 View Result Date: August 04, 2022 Verified By: ANDI TINOCO MD CLINICAL STATEMENT: IMPRESSION: Mild right atelectasis and or consolidation, also seen on the comparison. XR Chest 1 View Result Date: August 03, 2022 Verified By: CLINICAL STATEMENT: IMPRESSION: Ill-defined hazy opacification in the right lower lung. Considerationsinclude sequelae of pulmonary infarct as well as subsegmental atelectasis.Infectious/inflammatory etiologies are considered less likely especiallygiven current clinical picture. Preliminary Report was Dictated bya Resident Preliminary Report By: Trenton Cannon Dictated Time: 08/03/2022 6:55:11 AM PrelimTime: 08/03/2022 7:02:37 AM Ordering Provider: IVAN SAMS nodes 10-14 mm short axis,immeasurablelesions such as lymphangitic involvement, ascites, pleuraleffusions, etc.):? Unchanged lytic lesionwith pathological compression deformity at T11. Worsening areas of right lung base ground-glass andconsolidative opacitiesin comparison to CT thorax 08/01/2022. Liver, gallbladder, spleen, pancreas and adrenal glands are unremarkable. Right kidney is unremarkable. No hydronephrosis or urolithiasis. Patient isstatus post left nephrectomy. No new or residual disease noted in thenephrectomy bed. Uri nary bladder is unremarkable. Unremarkable prostate. Small bowel, colon and appendix are normal in caliber. There is no definitebowel wall thickening, intraperitoneal free air or focal fluid collection. Prominent subcentimeter stable celiac axis and portal caval lymph nodes arenonspecific. No pathologic lymphadenopathy. Nonaneurysmal abdominal aorta. No acute fracture. Unchanged lytic lesion pathological compression deformityat T11. Mild anasarca. Left lateral lumbar hernia containing a fewnonobstructed loops of bowel. IMPRESSION:Confluent ground-glass and patchy opacities in the right middleand rightlower lobe. Correlate clinically and follow-up to resolution. No acute findings in the abdomen or pelvis. No evidence of new or recurrentdisease in the left nephrectomy bed. I have personally reviewed the images of this examination and agree with theresident's findings and interpretation. IR Pulmonary Angio/EKOS Cath Place Result Date: August 02, 2022 Verified By: CLINICAL STATEMENT: IMPRESSION: XR Chest 1 View Result Date: August 02, 2022 Verified By: JANICE MITCHELL MD CLINICAL STATEMENT: IMPRESSION: Right infrahilar hazy opacifications likely on the basis of subsegmentalatelectasis. A developing infectious/inflammatory etiology cannot be ruledout however. I have personally reviewed the images of this examination and agree with theresident's findings and interpretation. Transthoracic Echocardiography Study date: 08/02/2022 Study Time: 07:16 AM 1. Left ventricle: Systolic function is probably normal. The estimated ejection fraction is 55-60%.Wall motion is normal; there are no regional wall motion abnormalities. Unable to assess diastolic function. 2. Aortic valve: Thickening, consistent with sclerosis. 3. Right ventricle: Systolic function is moderately to severely reduced. Systolic pressure is mildly increased. The RV systolic pressure by Doppler is 33 mm Hg. 4. Right atrium: The atrium is mildly dilated. The estimated right atrial pressure is 8 mm Hg. 5. This was a technically limited study. Study data: Patient unit: MICU. Patient room number: 3714. Transthoracic echocardiography. M-mode, complete 2D, complete spectral Doppler, and color Doppler. Study status: Routine. Patient status: Inpatient. Objective: Chest pain; PE. Location: ICU Procedure room # 3714. Procedure: Transthoracic echocardiography was performed for diagnosis. Image quality was poor. The study was technically limited due to body habitus. 2 ml of intravenous contrast (Definity) was administered to opacify the LV. Left ventricle: Wall thickness could not be accurately determined. Systolic function is probably normal. The estimated ejection fraction is 55-60%. Wall motion is normal; there are no regional wall motion abnormalities. Unable to assess diastolic function. Unable to evaluate severity grade due to technically limited study. Left atrium: Not visualized. Right ventricle: Not well visualized. The cavity size is normal. Systolic function is moderately toseverely reduced. Systolic pressure is mildly increased. The RV systolic pressure by Doppler is 33 mm Hg. Right atrium: The atrium is mildly dilated. The estimated right atrial pressure is 8 mm Hg. Mitral valve: Poorly visualized. The leaflets are normal thickness. The pressure half-time is 26 ms. The valve area (LVOT continuity) is 3.3 cm . Doppler: Transvalvular velocity is within the normal range. There is no evidence for stenosis. There is no significant regurgitation. The mean diastolic gradient is 4 mm Hg. The valve area by pressurehalf-time is 8.5 cm . Aortic valve: Poorly visualized. The valve is probably trileaflet. Thickening, consistent with sclerosis. The peak systolic velocity is 1 m/sec. The systolic velocity-time integral is 13.8 cm. The mean systolic gradient is 2 mm Hg. The LVOT to aortic valve VTI ratio is 0.87. The valve area by VTI is 2.9 cm . The valve area by peak velocity is 2.5 cm . Doppler: Transvalvular velocity is within the normal range. There is no stenosis. There is no regurgitation. Tricuspid valve: Not well visualized. The valve is structurally normal. The regurgitant peak velocity is 2.5 m/sec. Doppler: There is no evidence for stenosis. There is no regurgitation. Pulmonic valve: Poorly visualized. The peak systolic velocity is 1.06 m/sec. Doppler: There is no evidence for stenosis. There is no regurgitation. Aorta: Aortic root: The aortic root is normal. Systemic veins: Inferior vena cava: The IVC is normal-sized. Respirophasic diameter changes are in the normal range(> 50%). EKG EKG - Completed -- 08/03/22 9:45:00 EDT EKG - Completed -- 08/04/22 8:00:00 EDT Assessment/Plan #2:1 Atrial flutter #Massive pulmonary embolism #RV strain #Leukocytosis #Hyperkalemia, resolved #Acute hypoxic respiratory failure #Metastatic renal cell carcinoma #History of T11 fracture due to bony metastasis #Tobacco abuse #Alcohol abuse #AKHIL/OHS? #Morbid obesity - Latest EKG reviewed - Latest imaging reviewed - Latest echocardiogram reviewed Recommendations: - Anticoagulation: IV heparin drip - Rhythm control: None - Rate control: Increasing to Metoprolol tartrate 100 mg twice daily - Consulted electrophysiology, appreciate recommendations - Ordered VBG stat - Ordered liver function panel stat - Ordered lactic acid stat Patient seen and discussed with Dr. Yessi Melgar II, MD PGY-4 Cardiovascular Disease Fellow Pager: [phone] Digitally Signed by RACHELL MELGAR MD on 08/05/2022 03:24 PM [id number] Oncology Progress note Subjective Shortness of breath Weakness No chest pain Objective Vitals and Measurements T: 36.7 C (Oral) TMIN: 36.0 C (Oral) TMAX: 36.7 C (Oral) HR: 122(Monitored) RR: 22 BP: 116/94 SpO2:100% Intake and Output 7AM Yesterday to 7AM Today Intake and Output (Last 24 hours) Intake Administration Information 453.03 Oral Intake 2620.00 Output Urine Voided 2075.00 Urine Count 1.00 Total Summary Total Intake 3073.03 Total Output 2075.00 Fluid Balance 998.03 Physical Exam In no apparent distress 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 Pulm: No breathing difficulty Weight Dosing Weight: 159 kg (08/01/22) Medications Medications (20) Active Scheduled: (9) folic acid 1 mg tablet 1 mg 1 tab(s), Oral, qDay lidocaine patch REMOVAL 1 EA, Miscellaneous, q24h lidocaine topical 4% patch 1 patch(es), Transdermal, q24h menthol (Biofreeze) gel packet 1 julia, Topical, qDay metoprolol tartrate 100 mg tablet 100 mg 1 tab(s), Oral, BID miconazole topical 2% Powder 1 julia, Topical, BID Nicoderm patch REMOVAL 1 EA, Miscellaneous, q24h nicotine 14 mg/24 hr ER patch 14 mg 1 patch(es), Transdermal, q24h thiamine (w/calcium) 100 mg tablet 100 mg 1 tab(s), Oral, qDay Continuous: (1) heparin 25,000 unit(s) [15.723 unit(s)/kg/hr] + Dextrose 5% Premix Diluent 250 mL 250 mL, Intravenous, 25 mL/hr PRN: (10) acetaminophen 325 mg Tablet 650 mg 2 tab(s), Oral, q4h heparin 5,000 units/mL (1 mL) vial 8,750 unit(s) 1.75 mL, IV Push, q6h heparin 5,000 units/mL (1 mL) vial 6,360 unit(s) 1.27 mL, IV Push, q6h melatonin 5 mg tablet 5 mg 1 tab(s), Oral, qHS ondansetron 2 mg/ 1 mL 2 mL INJ 4 mg 2 mL, IV Push, q4h oxycodone 5 mg tablet (immediate release) 5 mg 1 tab(s), Oral, q4h oxycodone 5 mg tablet (immediate release) 10 mg 2 tab(s), Oral, q4h polyethylene glycol 3350 - UD packet 17 gram(s) 15 mL, Oral, BID senna 8.6 mg Tablet 8.6 mg 1 tab(s), Oral, qDay sodium zirconium cyclosilicate 10 g REC packet 10 gram(s) 1 packet(s), Oral, q8hr Lab Results 08/05 15:04 Glucose Level: 141 H Sodium Level: 131 L Potassium Level: 5.6 H BUN: 27.0 H Creatinine Lvl (s): 1.24 08/05 04:02 WBC: 14.1 H Hgb: 14.3 Hct: 44.0 Platelet: 154 Neutrophil %: 82.2 H Glucose Level: 128 H Sodium Level: 132 L Potassium Level: 5.2 H BUN: 23.0 H Creatinine Lvl (s): 1.20 08/04 14:58 Potassium Level: 5.0 08/04 14:38 Potassium Level: 5.0 EKG EKG - Completed -- 08/04/22 8:00:00 EDT Assessment/Plan Oncology consultation for metastatic renal cell carcinoma Patient was admitted to the hospital on account of increasing shortness of breath and chest discomfort in the right second CT angiogram of the chest showed large pulmonary emboli in the right distal main artery and distal branches on the right side. Evidence of right heart strain was seen. 08/02/2022: Dr. Cordon performed EKOS catheter based thrombolysis of the right pulmonary artery thrombus Patient was now on heparin. Patient has stage IV renal cell carcinoma Metastatic renal cell carcinoma. S/P Left cytoreductive nephrectomy 08/14/20. Final path - ccRCC withsarcomatoid features. Metastatic renal cell carcinoma Patient is receiving nivolumab Stable disease Continue IV heparin Later on changed to oral anticoagulant Immunotherapy will be held this week. 08/04/2022: CT scan of abdomen and pelvis did not show any evidence of cancer progression Patient's case was discussed with Dr. Sepulveda from cardiology He is being treated for tachycardia Digitally Signed by BHAVIK TRIANA MD on 08/05/2022 06:30 PM [id number] Cardiology Progress note Date of Service 08/05/22 Chief Complaint SOB RFC Atrial flutter HPI 42-year-old man with past medical history of medical history of metastatic renal cell carcinoma (status post left nephrectomy 08/2020, radiation, ipilimumab, nivolumab), T11 vertebral body fracture due to lytic bone lesion, suspected AKHIL/OHS tobacco abuse, alcohol abuse and morbid obesity came into the emergency department at [facility] due to complaints of shortness of breath and chest pain. Initial CT angio of the chest showed right main pulmonary artery embolism with concern for right heart strain. Patient was transferred to the [facility] for further management under MICU care. During stay vascular surgery was consulted for EKOS thrombolysis. Patient also underwent transthoracic echoc ardiogram during stay which showed LVEF of 55 to 60% with moderately to severely reduced RV function. Postoperative course complicated by tachyarrhythmia. Initial EKG concerning for 2:1 atrial flutter. Cardiology consulted for atrial flutter. Subjective No acute events overnight No new complaints Objective Vitals and Measurements T: 36.7 C (Oral) TMIN: 36.0 C (Oral) TMAX: 36.7 C (Oral) HR: 121(Monitored) RR: 21 BP: 131/87 SpO2:95% Intake and Output 7AM Yesterday to 7AM Today Intake and Output (Last 24 hours) Intake Administration Information 453.03 Oral Intake 2620.00 Output Urine Voided 5.00 Urine Count 1.00 Total Summary Total Intake 3073.03 Total Output 5.00 Fluid Balance 998.03 Physical Exam General: AAOX3, mild distress, morbidly obese man HEENT: Anicteric sclera, MMM Neck: Trachea midline, no JVD appreciated CVS: Irregular rate, regular rhythm, normal S1/S2, no murmurs/rubs/gallops Lung: Decreased lung sounds at the bases, increased work of breathing Abd: Soft, NT/ND Extrem: WWP, trace LE edema Skin: Warm, Intact Neuro: AAOX3, spontaneous movement of all extremities Psych: Appropriate mood & affect Weight Dosing Weight: 159 kg (08/01/22) Medications Medications (20) Active Scheduled: (9) folic acid 1 mg tablet 1 mg 1 tab(s), Oral, qDay lidocaine patch REMOVAL 1 EA, Miscellaneous, q24h lidocaine topical 4% patch 1 patch(es), Transdermal, q24h menthol (Biofreeze) gel packet 1 julia, Topical, qDay metoprolol tartrate 100 mg tablet 100 mg 1 tab(s), Oral, BID miconazole topical 2% Powder 1 julia, Topical, BID Nicoderm patch REMOVAL 1 EA, Miscellaneous, q24h nicotine 14 mg/24 hr ER patch 14 mg 1 patch(es), Transdermal, q24h thiamine (w/calcium) 100 mg tablet 100 mg 1 tab(s), Oral, qDay Continuous: (1) heparin 25,000 unit(s) [15.723 unit(s)/kg/hr] + Dextrose 5% Premix Diluent 250 mL 250 mL, Intravenous, 25 mL/hr PRN: (10) acetaminophen 325 mg Tablet 650 mg 2 tab(s), Oral, q4h heparin 5,000 units/mL (1 mL) vial 8,750 unit(s) 1.75 mL, IV Push, q6h heparin 5,000 units/mL (1 mL) vial 6,360 unit(s) 1.27 mL, IV Push, q6h melatonin 5 mg tablet 5 mg 1 tab(s), Oral, qHS ondansetron 2 mg/ 1 mL 2 mL INJ 4 mg 2 mL, IV Push, q4h oxycodone 5 mg tablet (immediate release) 5 mg 1 tab(s), Oral, q4h oxycodone 5 mg tablet (immediate release) 10 mg 2 tab(s), Oral, q4h polyethylene glycol 3350 - UD packet 17 gram(s) 15 mL, Oral, BID senna 8.6 mg Tablet 8.6 mg 1 tab(s), Oral, qDay sodium zirconium cyclosilicate 10 g REC packet 10 gram(s) 1 packet(s), Oral, q8hr Lab Results 08/05 04:02 WBC: 14.1 H Hgb: 14.3 Hct: 44.0 Platelet: 154 Neutrophil %: 82.2 H Glucose Level: 128 H Sodium Level: 132 L Potassium Level: 5.2 H BUN: 23.0 H Creatinine Lvl (s): 1.20 08/04 14:58 Potassium Level: 5.0 08/04 14:38 Potassium Level: 5.0 08/04 06:24 WBC: 14.6 H Hgb: 15.1 Hct: 46.9 Platelet: 182 Neutrophil %: 82.5 H Glucose Level: 115 H Sodium Level: 137 Potassium Level: 6.1 C BUN: 27.0 H Creatinine Lvl (s): 1.41 H Imaging Results and Diagnostics CT Abdomen/Pelvis w/Contrast Result Date: August 04, 2022 Verified By: RAY MARTE MD CLINICAL STATEMENT: IMPRESSION: Confluent ground-glass and patchy opacities in the right middle and rightlower lobe. Correlate clinically and follow-up to resolution. No acute findings in the abdomen or pelvis. No evidence of new or recurrentdisease in the left nephrectomy bed. I have personally reviewed the images ofthis examination and agree with theresident's findings and interpretation. XR Chest 1 View Result Date: August 04, 2022 Verified By: ANDI TINOCO MD CLINICAL STATEMENT: IMPRESSION: Mild right atelectasis and or consolidation, also seen on the comparison. XR Chest 1 View Result Date: August 03, 2022 Verified By: CLINICAL STATEMENT: IMPRESSION: Ill-defined hazy opacification in the right lower lung. Considerationsinclude sequelae of pulmonary infarct as well as subsegmental atelectasis.Infectious/inflammatory etiologies are considered less likely especiallygiven current clinical picture. Preliminary Report was Dictated bya Resident Preliminary Report By: Trenton Cannon Dictated Time: 08/03/2022 6:55:11 AM PrelimTime: 08/03/2022 7:02:37 AM Ordering Provider: IVAN SAMS nodes 10-14 mm short axis,immeasurablelesions such as lymphangitic involvement, ascites, pleuraleffusions, etc.):? Unchanged lytic lesionwith pathological compression deformity at T11. Worsening areas of right lung base ground-glass andconsolidative opacitiesin comparison to CT thorax 08/01/2022. Liver, gallbladder, spleen, pancreas and adrenal glands are unremarkable. Right kidney is unremarkable. No hydronephrosis or urolithiasis. Patient isstatus post left nephrectomy. No new or residual disease noted in thenephrectomy bed. Uri nary bladder is unremarkable. Unremarkable prostate. Small bowel, colon and appendix are normal in caliber. There is no definitebowel wall thickening, intraperitoneal free air or focal fluid collection. Prominent subcentimeter stable celiac axis and portal caval lymph nodes arenonspecific. No pathologic lymphadenopathy. Nonaneurysmal abdominal aorta. No acute fracture. Unchanged lytic lesion pathological compression deformityat T11. Mild anasarca. Left lateral lumbar hernia containing a fewnonobstructed loops of bowel. IMPRESSION:Confluent ground-glass and patchy opacities in the right middleand rightlower lobe. Correlate clinically and follow-up to resolution. No acute findings in the abdomen or pelvis. No evidence of new or recurrentdisease in the left nephrectomy bed. I have personally reviewed the images of this examination and agree with theresident's findings and interpretation. IR Pulmonary Angio/EKOS Cath Place Result Date: August 02, 2022 Verified By: CLINICAL STATEMENT: IMPRESSION: XR Chest 1 View Result Date: August 02, 2022 Verified By: JANICE MITCHELL MD CLINICAL STATEMENT: IMPRESSION: Right infrahilar hazy opacifications likely on the basis of subsegmentalatelectasis. A developing infectious/inflammatory etiology cannot be ruledout however. I have personally reviewed the images of this examination and agree with theresident's findings and interpretation. Transthoracic Echocardiography Study date: 08/02/2022 Study Time: 07:16 AM 1. Left ventricle: Systolic function is probably normal. The estimated ejection fraction is 55-60%.Wall motion is normal; there are no regional wall motion abnormalities. Unable to assess diastolic function. 2. Aortic valve: Thickening, consistent with sclerosis. 3. Right ventricle: Systolic function is moderately to severely reduced. Systolic pressure is mildly increased. The RV systolic pressure by Doppler is 33 mm Hg. 4. Right atrium: The atrium is mildly dilated. The estimated right atrial pressure is 8 mm Hg. 5. This was a technically limited study. Study data: Patient unit: MICU. Patient room number: 3714. Transthoracic echocardiography. M-mode, complete 2D, complete spectral Doppler, and color Doppler. Study status: Routine. Patient status: Inpatient. Objective: Chest pain; PE. Location: ICU Procedure room # 3714. Procedure: Transthoracic echocardiography was performed for diagnosis. Image quality was poor. The study was technically limited due to body habitus. 2 ml of intravenous contrast (Definity) was administered to opacify the LV. Left ventricle: Wall thickness could not be accurately determined. Systolic function is probably normal. The estimated ejection fraction is 55-60%. Wall motion is normal; there are no regional wall motion abnormalities. Unable to assess diastolic function. Unable to evaluate severity grade due to technically limited study. Left atrium: Not visualized. Right ventricle: Not well visualized. The cavity size is normal. Systolic function is moderately toseverely reduced. Systolic pressure is mildly increased. The RV systolic pressure by Doppler is 33 mm Hg. Right atrium: The atrium is mildly dilated. The estimated right atrial pressure is 8 mm Hg. Mitral valve: Poorly visualized. The leaflets are normal thickness. The pressure half-time is 26 ms. The valve area (LVOT continuity) is 3.3 cm . Doppler: Transvalvular velocity is within the normal range. There is no evidence for stenosis. There is no significant regurgitation. The mean diastolic gradient is 4 mm Hg. The valve area by pressurehalf-time is 8.5 cm . Aortic valve: Poorly visualized. The valve is probably trileaflet. Thickening, consistent with sclerosis. The peak systolic velocity is 1 m/sec. The systolic velocity-time integral is 13.8 cm. The mean systolic gradient is 2 mm Hg. The LVOT to aortic valve VTI ratio is 0.87. The valve area by VTI is 2.9 cm . The valve area by peak velocity is 2.5 cm . Doppler: Transvalvular velocity is within the normal range. There is no stenosis. There is no regurgitation. Tricuspid valve: Not well visualized. The valve is structurally normal. The regurgitant peak velocity is 2.5 m/sec. Doppler: There is no evidence for stenosis. There is no regurgitation. Pulmonic valve: Poorly visualized. The peak systolic velocity is 1.06 m/sec. Doppler: There is no evidence for stenosis. There is no regurgitation. Aorta: Aortic root: The aortic root is normal. Systemic veins: Inferior vena cava: The IVC is normal-sized. Respirophasic diameter changes are in the normal range(> 50%). EKG EKG - Completed -- 08/03/22 9:45:00 EDT EKG - Completed -- 08/04/22 8:00:00 EDT Assessment/Plan #2:1 Atrial flutter #Massive pulmonary embolism #RV strain #Leukocytosis #Hyperkalemia, resolved #Acute hypoxic respiratory failure #Metastatic renal cell carcinoma #History of T11 fracture due to bony metastasis #Tobacco abuse #Alcohol abuse #AKHIL/OHS? #Morbid obesity - Latest EKG reviewed - Latest imaging reviewed - Latest echocardiogram reviewed Recommendations: - Anticoagulation: IV heparin drip - Rhythm control: None - Rate control: Increasing to Metoprolol tartrate 100 mg twice daily - Consulted electrophysiology, appreciate recommendations - Ordered VBG stat - Ordered liver function panel stat - Ordered lactic acid stat Patient seen and discussed with Dr. Yessi Melgar II, MD PGY-4 Cardiovascular Disease Fellow Pager: [phone] Digitally Signed by RACHELL MELGAR MD on 08/05/2022 03:24 PM [id number] Cardiology Consult note Date of Service 08/05/2022 Reason for Consultation Atrial flutter Referring Physician General cardiology service History of Present Illness Lyndsay Lopez is a 42-year-old male with a significant past medical history of metastatic renal cell carcinoma s/p Left cytoreductive nephrectomy 08/14/20 (now receiving nivolumab), T11 vertebral body fracture due to lytic bone lesion, obesity, tobacco use, EtOH use, and possible AKHIL who presented on 08/01/2022 with shortness of breath and chest pain found to have pulmonary embolism with significant clot burden in the right main pulmonary artery and RV strain. Patient underwent bilateral pulmonary EKOS thrombolysis on 08/02/2022. Hospitalization complicated by atrial flutter with RVR. Review of Systems A thorough 14 point review of system was done, and is negative except for what was listed above in the HPI section Physical Exam Vitals and Measurements T: 36.2 C (Oral) TMIN: 36.0 C (Oral) TMAX: 36.7 C (Oral) HR: 122(Monitored) RR: 28 BP: 113/96 SpO2:99% Weight Dosing Weight: 159 kg (08/01/22) GENERAL: Patient is under no acute distress,and in no discomfort HEAD: Normocephalic, Atraumatic EYES/EARS: Pupils are equal and reactive, No scleral icterus. NOSE: Normal appearing nasal nares MOUTH Good oral hygiene, Moist oral mucosa, no pharyngeal erythema or exudates noted, undeviated uvula NECK: Supple, Nontender, No thyromegaly, No JVD, Midline trachea, No lymphadenopathy PULMONARY: Normal breathing effort, clear to auscultation bilaterally CARDIAC: tachycardia, no murmur, gallops, or rubs. No lower extremity edema. ABDOMEN: soft, Nontender, Normal active bowel sounds BACK: No obvious deformities. : Deferred MSK: Warm bilaterally chronic skin changes noted SKIN: No PATHOLOGIC moles, rashes, lesions or ulcers were noted other than what is listed above NEURO: Alert and Oriented 4, Cranial nerves II to XII grossly intact. No focal. deficits grossly noted PSYCH: Pleasant, Good attention Lab Results 08/05 04:02 WBC: 14.1 H Hgb: 14.3 Hct: 44.0 Platelet: 154 Neutrophil %: 82.2 H Glucose Level: 128 H Sodium Level: 132 L Potassium Level: 5.2 H BUN: 23.0 H Creatinine Lvl (s): 1.20 08/04 14:58 Potassium Level: 5.0 08/04 14:38 Potassium Level: 5.0 08/04 06:24 WBC: 14.6 H Hgb: 15.1 Hct: 46.9 Platelet: 182 Neutrophil %: 82.5 H Glucose Level: 115 H Sodium Level: 137 Potassium Level: 6.1 C BUN: 27.0 H Creatinine Lvl (s): 1.41 H Imaging Results and Diagnostics CT Abdomen/Pelvis w/Contrast Result Date: August 04, 2022 Verified By: RAY MARTE MD CLINICAL STATEMENT: IMPRESSION: Confluent ground-glass and patchy opacities in the right middle and rightlower lobe. Correlate clinically and follow-up to resolution. No acute findings in the abdomen or pelvis. No evidence of new or recurrentdisease in the left nephrectomy bed. I have personally reviewed the images ofthis examination and agree with theresident's findings and interpretation. XR Chest 1 View Result Date: August 04, 2022 Verified By: ANDI TINOCO MD CLINICAL STATEMENT: IMPRESSION: Mild right atelectasis and or consolidation, also seen on the comparison. XR Chest 1 View Result Date: August 03, 2022 Verified By: CLINICAL STATEMENT: IMPRESSION: Ill-defined hazy opacification in the right lower lung. Considerationsinclude sequelae of pulmonary infarct as well as subsegmental atelectasis.Infectious/inflammatory etiologies are considered less likely especiallygiven current clinical picture. Preliminary Report was Dictated bya Resident Preliminary Report By: Trenton Cannon Dictated Time: 08/03/2022 6:55:11 AM PrelimTime: 08/03/2022 7:02:37 AM Ordering Provider: IVAN SAMS nodes 10-14 mm short axis,immeasurablelesions such as lymphangitic involvement, ascites, pleuraleffusions, etc.):? Unchanged lytic lesionwith pathological compression deformity at T11. Worsening areas of right lung base ground-glass andconsolidative opacitiesin comparison to CT thorax 08/01/2022. Liver, gallbladder, spleen, pancreas and adrenal glands are unremarkable. Right kidney is unremarkable. No hydronephrosis or urolithiasis. Patient isstatus post left nephrectomy. No new or residual disease noted in thenephrectomy bed. Uri nary bladder is unremarkable. Unremarkable prostate. Small bowel, colon and appendix are normal in caliber. There is no definitebowel wall thickening, intraperitoneal free air or focal fluid collection. Prominent subcentimeter stable celiac axis and portal caval lymph nodes arenonspecific. No pathologic lymphadenopathy. Nonaneurysmal abdominal aorta. No acute fracture. Unchanged lytic lesion pathological compression deformityat T11. Mild anasarca. Left lateral lumbar hernia containing a fewnonobstructed loops of bowel. IMPRESSION:Confluent ground-glass and patchy opacities in the right middleand rightlower lobe. Correlate clinically and follow-up to resolution. No acute findings in the abdomen or pelvis. No evidence of new or recurrentdisease in the left nephrectomy bed. I have personally reviewed the images of this examination and agree with theresident's findings and interpretation. IR Pulmonary Angio/EKOS Cath Place Result Date: August 02, 2022 Verified By: CLINICAL STATEMENT: IMPRESSION: XR Chest 1 View Result Date: August 02, 2022 Verified By: JANICE MITCHELL MD CLINICAL STATEMENT: IMPRESSION: Right infrahilar hazy opacifications likely on the basis of subsegmentalatelectasis. A developing infectious/inflammatory etiology cannot be ruledout however. I have personally reviewed the images of this examination and agree with theresident's findings and interpretation. 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 Hospitalization complicated by atrial flutter with RVR. Transthoracic echocardiogram demonstrates preserved LVEF with severely reduced RV. Patient on metoprolol succinate 50 mg twice daily. Given significant reduction in RV would cautiously uptitrate beta- nitesh. Could consider digoxin for better rate control strategy once hyperkalemia has improved. General cardiology colleagues also on board. Ultimately patient will do better with zoroastrianism of sinus rhythm. Recommend BONNIE/DCCV under anesthesia as patient has episodes of hypoxia and concern for decompensation. May also consider ablation in outpatient setting. [id number] score only 1 however given hypercoagulable state would recommendanticoagulation at discharge. Remaining management per primary Assessment and plan was discussed with Dr. Alvarenga. Any changes in assessment/plan, will be added as an addendum to this note by the attending physician. This note was transcribed via voice recognition software. Please forgive any errors or typos resulting from the use of this technology. Lesley Green DO, MS Court Collections Officer (PGY-5) Pager [phone]/ Cort[employer] Problem List/Past Medical History Ongoing Alcohol abuse Left renal mass. 9.6-cm. With perinephric fat invasion. With lytic bony lesion and pulmonary nodules concerning for mets. BS, 07/2020 - neg. CT brain, 07/2020 - neg. S/P Radical nephrectomy 08/14/20. Metastatic renal cell carcinoma. S/P Left cytoreductive nephrectomy 08/14/20. Final path - ccRCC withsarcomatoid features. No chronic diseases present T11 vertebral fracture Tobacco abuse Viral gastroenteritis Cigarette smoker Active Lung nodule, multiple Active Marijuana user Active Secondary malignant neoplasm of bone (disorder) Active Historical Renal cell carcinoma (disorder) Active Procedure/Surgical History Tooth extraction: 08/28/21 Nephrectomy, including partial ureterectomy, any open approach including rib resection; radical, with regional lymphadenectomy and/or vena caval thrombectomy: 08/14/20 Tonsillectomy Boost radiation therapy Chemotherapy Medications Inpatient Biofreeze gel packet, 1 julia, Topical, qDay folic acid, 1 mg= 1 tab(s), Oral, qDay Heparin for IV 25,000 unit(s) [15.723 unit(s)/kg/hr] + Dextrose 5% Premix Diluent 250 mL Heparin HBW Bolus 5000 units/mL, 8750 unit(s)= 1.75 mL, 70 unit(s)/kg, IV Push, q6h, PRN Heparin HBW Bolus 5000 units/mL, 6360 unit(s)= 1.27 mL, 40 unit(s)/kg, IV Push, q6h, PRN lidocaine (lidocaine Patch REMOVAL), 1 EA, Miscellaneous, q24h lidocaine 4% topical patch, 1 patch(es), Transdermal, q24h Lokelma, 10 gram(s)= 1 packet(s), Oral, q8hr, PRN Lopressor, 50 mg= 1 tab(s), Oral, BID melatonin, 5 mg= 1 tab(s), Oral, qHS, PRN miconazole 2% topical powder, 1 julia, Topical, BID Miralax Powder Packet, 17 gram(s)= 15 mL, Oral, BID, PRN Nicoderm C-Q 14 mg/24 hr transdermal film, extended release, 14 mg= 1 patch(es), Transdermal, q24h nicotine (Nicoderm Patch REMOVAL), 1 EA, Miscellaneous, q24h oxyCODONE 5 mg oral tablet ( IMMEDIATE release ), 5 mg= 1 tab(s), Oral, q4h, PRN oxyCODONE 5 mg oral tablet ( IMMEDIATE release ), 10 mg= 2 tab(s), Oral, q4h, PRN senna, 8.6 mg= 1 tab(s), Oral, qDay, PRN thiamine, 100 mg= 1 tab(s), Oral, qDay Tylenol, 650 mg= 2 tab(s), Oral, q4h, PRN Zofran, 4 mg= 2 mL, IV Push, q4h, PRN Home Miralax 255 gm bottle, Oral, qDay, PRN oxyCODONE 5 mg oral tablet ( IMMEDIATE release ), 5 mg= 1 tab(s), Oral, q8h, PRN senna 8.6 mg oral tablet, 17.2 mg= 2 tab(s), Oral, BID, PRN Allergies penicillin (Swelling) Social History Smoking Status - 11/07/2016 Current every day smoker Alcohol - Medium Risk, 11/07/2016 Use: Current. Type: Beer. Frequency: Daily. Previous treatment: Outpatient. Has alcohol use interfered with work or home life: No. Do you ever drink more than intended: Yes. Has anyone been hurt or at risk by your drinking: Yes. Ready to change: Yes., 03/07/2022 Employment/School Status: Employed., 12/16/2020 Home/Environment Domestic Concerns: None. Living situation: Home with assistance. 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 Safe place to go: Yes. Lives In: Single level home, 1st floor bedroom, 1st floor bathroom, 1st floor laundry., 08/14/2020 Nutrition/Health Caffeine intake amount: 1 can of pop once a week., 11/06/2020 Type of diet: Regular. Appetite Excellent. Eating Difficulties None., 08/14/2020 Substance Abuse - Denies Substance Abuse, 11/07/2016 Use: Current. Type: Marijuana. Frequency: 1-2 times per month. IV drug use; No. Ready to change: No. Concerns about substance abuse in household: No., 08/14/2020 Tobacco Nicotine Use: 10 or more cigarettes (1/2 pack or more)/day in last 30 days. Type: Cigarettes. Started at age: 13 Years. Ready to change: Yes., 08/07/2020 Family History Bladder cancer: Negative: Mother, Father, Sister, Brother, Daughter, Son and Grandparent. Crohn's disease: Sister. Diabetes: Father. HTN - Hypertension: Mother and Father. Heart attack: Father. Heart disease: Negative: Mother, Father, Sister, Brother, Daughter, Son and Grandparent. Hypertension: Mother and Father.Negative: Sister, Brother, Daughter, Son and Grandparent. Kidney disease: Negative: Mother, Father, Sister, Brother, Daughter, Son and Grandparent. Kidney stone: Mother and Sister.Negative: Father, Brother, Daughter, Son and Grandparent. Prostate cancer: Negative: Father, Brother and Son. Renal cancer: Negative: Mother, Father, Sister, Brother, Daughter, Son and Grandparent. Rheumatoid arthritis: Mother. Immunizations SARS-CoV-2 (COVID-19) mRNA-1273 vaccine: 0.25 unknown unit (04/15/21) SARS-CoV-2 (COVID-19) mRNA-1273 vaccine: 0.5 unknown unit (10/15/20) SARS-CoV-2 (COVID-19) mRNA-1273 vaccine: 0.5 unknown unit (09/17/20) Digitally Signed by LESLEY GREEN DO on 08/05/2022 03:41 PM [id number] Note Date of Service 08/05/2022 Chief Complaint Patient is a 42-year-old gentleman who presented to outside ED with chief complaint of shortness ofbreath as well as chest pain. He has a past medical history of metastatic renal cell carcinoma (status post left nephrectomy 08/2020, radiation, ipilimumab, nivolumab), T11 vertebral body fracture dueto lytic bone lesion, likely AKHIL pending sleep study. The patient reportedly had 3 days of right-sided chest pain and shortness of breath and felt like "[he] was going to ." The patient was found to have bilateral pulmonary emboli with evidence of right heart strain and was initially managed in the medical ICU. He underwent pulmonary EKOS and was then managed in the surgical ICU. In the last 24 hours: Patient remains tachycardic on 6 L nasal cannula. He is having recurrent apneas overnight with desaturations, though he continues decline CPAP. Objective Vitals and Measurements T: 36.2 C (Oral) TMIN: 36.0 C (Oral) TMAX: 36.7 C (Oral) HR: 122(Monitored) RR: 28 BP: 113/96 SpO2:99% Intake and Output 7AM Yesterday to 7AM Today Intake and Output (Last 24 hours) Intake Administration Information 326.03 Oral Intake 1480.00 Output Urine Voided 2000.00 Urine Count 1.00 Total Summary Total Intake 1806.03 Total Output 2000.00 Fluid Balance -193.97 Physical Exam - GENERAL: No acute distress. - HEENT: EOMI. moist mucous membranes. - LUNGS: Decreased bilaterally. No wheezes. - CARDIOVASCULAR: Tachycardic, regular - ABDOMEN: Obese, soft - EXTREMITIES: No edema. - SKIN: No rashes or lesions. Warm. - NEUROLOGIC: No focal neurological deficits. - PSYCHIATRIC: Cooperative. Appropriate mood and affect. Weight Dosing Weight: 159 kg (08/01/22) Medications Medications (21) Active Scheduled: (10) cefTRIAXone IVP syringe 2 gram(s) 20 mL, IV Push (INT), qDay folic acid 1 mg tablet 1 mg 1 tab(s), Oral, qDay lidocaine patch REMOVAL 1 EA, Miscellaneous, q24h lidocaine topical 4% patch 1 patch(es), Transdermal, q24h menthol (Biofreeze) gel packet 1 julia, Topical, qDay metoprolol tartrate 50 mg tablet 50 mg 1 tab(s), Oral, BID miconazole topical 2% Powder 1 julia, Topical, BID Nicoderm patch REMOVAL 1 EA, Miscellaneous, q24h nicotine 14 mg/24 hr ER patch 14 mg 1 patch(es), Transdermal, q24h thiamine (w/calcium) 100 mg tablet 100 mg 1 tab(s), Oral, qDay Continuous: (1) heparin 25,000 unit(s) [15.723 unit(s)/kg/hr] + Dextrose 5% Premix Diluent 250 mL 250 mL, Intravenous, 25 mL/hr PRN: (10) acetaminophen 325 mg Tablet 650 mg 2 tab(s), Oral, q4h heparin 5,000 units/mL (1 mL) vial 8,750 unit(s) 1.75 mL, IV Push, q6h heparin 5,000 units/mL (1 mL) vial 6,360 unit(s) 1.27 mL, IV Push, q6h melatonin 5 mg tablet 5 mg 1 tab(s), Oral, qHS ondansetron 2 mg/ 1 mL 2 mL INJ 4 mg 2 mL, IV Push, q4h oxycodone 5 mg tablet (immediate release) 5 mg 1 tab(s), Oral, q4h oxycodone 5 mg tablet (immediate release) 10 mg 2 tab(s), Oral, q4h polyethylene glycol 3350 - UD packet 17 gram(s) 15 mL, Oral, BID senna 8.6 mg Tablet 8.6 mg 1 tab(s), Oral, qDay sodium zirconium cyclosilicate 10 g REC packet 10 gram(s) 1 packet(s), Oral, q8hr Lab Results 08/05 04:02 WBC: 14.1 H Hgb: 14.3 Hct: 44.0 Platelet: 154 Neutrophil %: 82.2 H Glucose Level: 128 H Sodium Level: 132 L Potassium Level: 5.2 H BUN: 23.0 H Creatinine Lvl (s): 1.20 08/04 14:58 Potassium Level: 5.0 08/04 14:38 Potassium Level: 5.0 08/04 06:24 WBC: 14.6 H Hgb: 15.1 Hct: 46.9 Platelet: 182 Neutrophil %: 82.5 H Glucose Level: 115 H Sodium Level: 137 Potassium Level: 6.1 C BUN: 27.0 H Creatinine Lvl (s): 1.41 H EKG EKG - Completed -- 08/03/22 9:45:00 EDT EKG - Completed -- 08/04/22 8:00:00 EDT Assessment: Pulmonary embolism right main pulmonary artery Likely pulmonary infarct Leukocytosis , possible UTI Hypoxemic respiratory failure Atrial flutter/tachyarrhythmia Comorbidities include: Metastatic renal cell carcinoma, tobacco use, obesity, likely AKHIL, regular alcohol use Plan: Wean nasal cannula to maintain saturation more than 92% Continue heparin by weight for now Cardiology consulted for atrial flutter. Appreciate recommendations. Patient has been increased to metoprolol 50 mg twice daily. There is consideration for other antiarrhythmics or procedures to achieve rhythm control. Appreciate input from Dr. Triana of oncology Discontinue ceftriaxone Chest pain is multifactorial with a component of musculoskeletal as well as pulmonary infarcts. Will apply lidocaine patch, Biofreeze. Tylenol and oxycodone as needed for pain Patient's heart rates remain elevated. We will continue to monitor him in ICU status while he is heart rate is optimized. Time Spent 30 minutes critical care time Digitally Signed by EMILIO LOPEZ MD on 08/05/2022 10:51 AM [id number] Note ORIGINAL EXAMINATION: CT OF THE ABDOMEN AND PELVIS WITH CONTRAST 08/04/2022 3:47 pm TECHNIQUE: CT of the abdomen and pelvis was performed with the administration of intravenous contrast. Multiplanar reformatted images are provided for review. Automated exposure control, iterative reconstruction, and/or weight based adjustment of the mA/kV was utilized to reduce the radiation dose to as low as reasonably achievable. COMPARISON: 03/08/2022. HISTORY: ORDERING SYSTEM PROVIDED HISTORY: Reason for Exam: pt states sob, rt lung/chest pain since last Monday. Left renal cancer status post nephrectomy October 2020. FINDINGS: Recist 1.1: POTENTIAL TARGET TUMOR LESIONS (maximum 5 lesions, maximum 2 per organ, longest dimension in axial plane reported, >10 mm, reproducible lesions): None POTENTIAL TARGET LYMPH NODES (>15 mm short axis, maximum 2): None NONTARGET LESIONS (Definite tumor lesions, lymph nodes 10-14 mm short axis, immeasurable lesions such as lymphangitic involvement, ascites, pleural effusions, etc.):? Unchanged lytic lesion with pathological compression deformity at T11. Worsening areas of right lung base ground-glass and consolidative opacities in comparison to CT thorax 08/01/2022. Liver, gallbladder, spleen, pancreas and adrenal glands are unremarkable. Right kidney is unremarkable. No hydronephrosis or urolithiasis. Patient is status post left nephrectomy. No new or residual disease noted in the nephrectomy bed. Urinary bladder is unremarkable. Unremarkable prostate. Small bowel, colon and appendix are normal in caliber. There is no definite bowel wall thickening, intraperitoneal free air or focal fluid collection. Prominent subcentimeter stable celiac axis and portal caval lymph nodes are nonspecific. No pathologic lymphadenopathy. Nonaneurysmal abdominal aorta. No acute fracture. Unchanged lytic lesion pathological compression deformity at T11. Mild anasarca. Left lateral lumbar hernia containing a few nonobstructed loops of bowel. IMPRESSION: Confluent ground-glass and patchy opacities in the right middle and right lower lobe. Correlate clinically and follow-up to resolution. No acute findings in the abdomen or pelvis. No evidence of new or recurrent disease in the left nephrectomy bed. I have personally reviewed the images of this examination and agree with the resident's findings and interpretation. Interpreted by: Ray Marte Preliminary Report By: Alfie Cristobal Electronically signed By Ray Marte Dictated Date: 08/04/2022 7:50:53 PM Prelim Date: 08/04/2022 8:07:18 PM Sign Date: 08/04/2022 10:04:02 PM Ordering Provider: TAMI VELASQUEZ [id number] Cardiology Progress note Date of Service 08/04/22 Chief Complaint SOB RFC Atrial flutter HPI 42-year-old man with past medical history of medical history of metastatic renal cell carcinoma (status post left nephrectomy 08/2020, radiation, ipilimumab, nivolumab), T11 vertebral body fracture due to lytic bone lesion, suspected AKHIL/OHS tobacco abuse, alcohol abuse and morbid obesity came into the emergency department at [facility] due to complaints of shortness of breath and chest pain. Initial CT angio of the chest showed right main pulmonary artery embolism with concern for right heart strain. Patient was transferred to the [facility] for further management under MICU care. During stay vascular surgery was consulted for EKOS thrombolysis. Patient also underwent transthoracic echoc ardiogram during stay which showed LVEF of 55 to 60% with moderately to severely reduced RV function. Postoperative course complicated by tachyarrhythmia. Initial EKG concerning for 2:1 atrial flutter. Cardiology consulted for atrial flutter. Subjective No acute events overnight No new complaints Intake and Output 7AM Yesterday to 7AM Today Intake and Output (Last 24 hours) Intake Administration Information 369.08 Oral Intake 360.00 Output Urine Voided 1200.00 Stool Count 1.00 Urine Count 4.00 Total Summary Total Intake 729.08 Total Output 1200.00 Fluid Balance -470.92 Physical Exam General: AAOX3, mild distress, morbidly obese man HEENT: Anicteric sclera, MMM Neck: Trachea midline, no JVD appreciated CVS: Irregular rate, regular rhythm, normal S1/S2, no murmurs/rubs/gallops Lung: Decreased lung sounds at the bases, increased work of breathing Abd: Soft, NT/ND Extrem: WWP, trace LE edema Skin: Warm, Intact Neuro: AAOX3, spontaneous movement of all extremities Psych: Appropriate mood & affect Weight Dosing Weight: 159 kg (08/01/22) Medications Medications (17) Active Scheduled: (8) cefTRIAXone IVP syringe 2 gram(s) 20 mL, IV Push (INT), qDay folic acid 1 mg tablet 1 mg 1 tab(s), Oral, qDay metoprolol tartrate 25 mg tablet 25 mg 1 tab(s), Oral, BID miconazole topical 2% Powder 1 julia, Topical, BID Nicoderm patch REMOVAL 1 EA, Miscellaneous, q24h nicotine 14 mg/24 hr ER patch 14 mg 1 patch(es), Transdermal, q24h sodium zirconium cyclosilicate 10 g REC packet 10 gram(s) 1 packet(s), Oral, Once thiamine (w/calcium) 100 mg tablet 100 mg 1 tab(s), Oral, qDay Continuous: (1) heparin 25,000 unit(s) [15.723 unit(s)/kg/hr] + Dextrose 5% Premix Diluent 250 mL 250 mL, Intravenous, 25 mL/hr PRN: (8) acetaminophen 325 mg Tablet 650 mg 2 tab(s), Oral, q4h acetaminophen-OXYcodone 325 mg-5 mg Tablet 1 tab(s), Oral, q4h acetaminophen-OXYcodone 325 mg-5 mg Tablet 2 tab(s), Oral, q4h heparin 5,000 units/mL (1 mL) vial 8,750 unit(s) 1.75 mL, IV Push, q6h heparin 5,000 units/mL (1 mL) vial 6,360 unit(s) 1.27 mL, IV Push, q6h melatonin 5 mg tablet 5 mg 1 tab(s), Oral, qHS ondansetron 2 mg/ 1 mL 2 mL INJ 4 mg 2 mL, IV Push, q4h sodium zirconium cyclosilicate 10 g REC packet 10 gram(s) 1 packet(s), Oral, q8hr Lab Results 08/04 06:24 WBC: 14.6 H Hgb: 15.1 Hct: 46.9 Platelet: 182 Neutrophil %: 82.5 H Glucose Level: 115 H Sodium Level: 137 Potassium Level: 6.1 C BUN: 27.0 H Creatinine Lvl (s): 1.41 H 08/03 11:34 Glucose Level: 99 Sodium Level: 137 Potassium Level: 4.8 BUN: 26.0 H Creatinine Lvl (s): 1.16 08/03 04:41 WBC: 17.6 H Hgb: 14.4 Hct: 44.4 Platelet: 195 Neutrophil %: 83.3 H Glucose Level: 122 H Sodium Level: 141 Potassium Level: 5.6 H BUN: 26.0 H Creatinine Lvl (s): 1.23 Imaging Results and Diagnostics XR Chest 1 View Result Date: August 03, 2022 Verified By: CLINICAL STATEMENT: IMPRESSION: IR Pulmonary Angio/EKOS Cath Place Result Date: August 02, 2022 Verified By: CLINICAL STATEMENT: IMPRESSION: XR Chest 1 View Result Date: August 02, 2022 Verified By: JANICE MITCHELL MD CLINICAL STATEMENT: IMPRESSION: Right infrahilar hazy opacifications likely on the basis of subsegmentalatelectasis. A developing infectious/inflammatory etiology cannot be ruledout however. I have personally reviewed the images of this examination and agree with theresident's findings and interpretation. Transthoracic Echocardiography Study date: 08/02/2022 Study Time: 07:16 AM 1. Left ventricle: Systolic function is probably normal. The estimated ejection fraction is 55-60%.Wall motion is normal; there are no regional wall motion abnormalities. Unable to assess diastolic function. 2. Aortic valve: Thickening, consistent with sclerosis. 3. Right ventricle: Systolic function is moderately to severely reduced. Systolic pressure is mildly increased. The RV systolic pressure by Doppler is 33 mm Hg. 4. Right atrium: The atrium is mildly dilated. The estimated right atrial pressure is 8 mm Hg. 5. This was a technically limited study. Study data: Patient unit: MICU. Patient room number: 3714. Transthoracic echocardiography. M-mode, complete 2D, complete spectral Doppler, and color Doppler. Study status: Routine. Patient status: Inpatient. Objective: Chest pain; PE. Location: ICU Procedure room # 3714. Procedure: Transthoracic echocardiography was performed for diagnosis. Image quality was poor. The study was technically limited due to body habitus. 2 ml of intravenous contrast (Definity) was administered to opacify the LV. Left ventricle: Wall thickness could not be accurately determined. Systolic function is probably normal. The estimated ejection fraction is 55-60%. Wall motion is normal; there are no regional wall motion abnormalities. Unable to assess diastolic function. Unable to evaluate severity grade due to technically limited study. Left atrium: Not visualized. Right ventricle: Not well visualized. The cavity size is normal. Systolic function is moderately toseverely reduced. Systolic pressure is mildly increased. The RV systolic pressure by Doppler is 33 mm Hg. Right atrium: The atrium is mildly dilated. The estimated right atrial pressure is 8 mm Hg. Mitral valve: Poorly visualized. The leaflets are normal thickness. The pressure half-time is 26 ms. The valve area (LVOT continuity) is 3.3 cm . Doppler: Transvalvular velocity is within the normal range. There is no evidence for stenosis. There is no significant regurgitation. The mean diastolic gradient is 4 mm Hg. The valve area by pressurehalf-time is 8.5 cm . Aortic valve: Poorly visualized. The valve is probably trileaflet. Thickening, consistent with sclerosis. The peak systolic velocity is 1 m/sec. The systolic velocity-time integral is 13.8 cm. The mean systolic gradient is 2 mm Hg. The LVOT to aortic valve VTI ratio is 0.87. The valve area by VTI is 2.9 cm . The valve area by peak velocity is 2.5 cm . Doppler: Transvalvular velocity is within the normal range. There is no stenosis. There is no regurgitation. Tricuspid valve: Not well visualized. The valve is structurally normal. The regurgitant peak velocity is 2.5 m/sec. Doppler: There is no evidence for stenosis. There is no regurgitation. Pulmonic valve: Poorly visualized. The peak systolic velocity is 1.06 m/sec. Doppler: There is no evidence for stenosis. There is no regurgitation. Aorta: Aortic root: The aortic root is normal. Systemic veins: Inferior vena cava: The IVC is normal-sized. Respirophasic diameter changes are in the normal range(> 50%). EKG Electrocardiogram (EKG) - InProcess -- 08/03/22 9:45:00 EDT Electrocardiogram (EKG) - Ordered -- 08/04/22 8:00:00 EDT Assessment/Plan #2:1 Atrial flutter #Massive pulmonary embolism #RV strain #Leukocytosis #Hyperkalemia increasing to #Acute hypoxic respiratory failure #Metastatic renal cell carcinoma #History of T11 fracture due to bony metastasis #Tobacco abuse #Alcohol abuse #AKHIL/OHS? #Morbid obesity - Latest EKG reviewed - Latest imaging reviewed - Latest echocardiogram reviewed Recommendations: - Anticoagulation: IV heparin drip - Rhythm control: None - Rate control: Increasing to Metoprolol tartrate 50 mg twice daily - Ordered VBG stat - Ordered potassium level stat - Ordered liver function panel stat - Ordered lactic acid stat Patient seen and discussed with Dr. Yessi Melgar II, MD PGY-4 Cardiovascular Disease Fellow Pager: [phone] Digitally Signed by RACHELL MELGAR MD on 08/04/2022 04:20 PM Digitally Signed by RACHELL MELGAR MD on 08/04/2022 04:27 PM [id number] Note ORIGINAL EXAMINATION: CT OF THE ABDOMEN AND PELVIS WITH CONTRAST 08/04/2022 3:47 pm TECHNIQUE: CT of the abdomen and pelvis was performed with the administration of intravenous contrast. Multiplanar reformatted images are provided for review. Automated exposure control, iterative reconstruction, and/or weight based adjustment of the mA/kV was utilized to reduce the radiation dose to as low as reasonably achievable. COMPARISON: 03/08/2022. HISTORY: ORDERING SYSTEM PROVIDED HISTORY: Reason for Exam: pt states sob, rt lung/chest pain since last Monday. Left renal cancer status post nephrectomy October 2020. FINDINGS: Recist 1.1: POTENTIAL TARGET TUMOR LESIONS (maximum 5 lesions, maximum 2 per organ, longest dimension in axial plane reported, >10 mm, reproducible lesions): None POTENTIAL TARGET LYMPH NODES (>15 mm short axis, maximum 2): None NONTARGET LESIONS (Definite tumor lesions, lymph nodes 10-14 mm short axis, immeasurable lesions such as lymphangitic involvement, ascites, pleural effusions, etc.):? Unchanged lytic lesion with pathological compression deformity at T11. Worsening areas of right lung base ground-glass and consolidative opacities in comparison to CT thorax 08/01/2022. Liver, gallbladder, spleen, pancreas and adrenal glands are unremarkable. Right kidney is unremarkable. No hydronephrosis or urolithiasis. Patient is status post left nephrectomy. No new or residual disease noted in the nephrectomy bed. Urinary bladder is unremarkable. Unremarkable prostate. Small bowel, colon and appendix are normal in caliber. There is no definite bowel wall thickening, intraperitoneal free air or focal fluid collection. Prominent subcentimeter stable celiac axis and portal caval lymph nodes are nonspecific. No pathologic lymphadenopathy. Nonaneurysmal abdominal aorta. No acute fracture. Unchanged lytic lesion pathological compression deformity at T11. Mild anasarca. Left lateral lumbar hernia containing a few nonobstructed loops of bowel. IMPRESSION: Confluent ground-glass and patchy opacities in the right middle and right lower lobe. Correlate clinically and follow-up to resolution. No acute findings in the abdomen or pelvis. No evidence of new or recurrent disease in the left nephrectomy bed. I have personally reviewed the images of this examination and agree with the resident's findings and interpretation. Interpreted by: Ray Marte Preliminary Report By: Alfie Cristobal Electronically signed By Ray Marte Dictated Date: 08/04/2022 7:50:53 PM Prelim Date: 08/04/2022 8:07:18 PM Sign Date: 08/04/2022 10:04:02 PM Ordering Provider: [facility]06-22-2023 Note Date of Service 08/04/2022 Subjective Patient is a 42-year-old gentleman who presented to outside ED with chief complaint of shortness ofbreath as well as chest pain. He has a past medical history of metastatic renal cell carcinoma (status post left nephrectomy 08/2020, radiation, ipilimumab, nivolumab), T11 vertebral body fracture dueto lytic bone lesion, likely AKHIL pending sleep study. The patient reportedly had 3 days of right-sided chest pain and shortness of breath and felt like "[he] was going to ." The patient was found to have bilateral pulmonary emboli with evidence of right heart strain and was initially managed in the medical ICU. He underwent pulmonary EKOS and was then managed in the surgical ICU. In the last 24 hours: Feels breathing has significantly improved. Main complaint is significant right anterior and posterior chest wall pain. Worse with movement, inspiration and palpation. Has been transitioned off the high flow nasal cannula to 3 to 6 L nasal cannula. He is currently sitting in chair comfortably not in respiratory distress. Remains tachycardic. Tolerating diet well Intake and Output 7AM Yesterday to 7AM Today Intake and Output (Last 24 hours) Intake Administration Information 369.08 Oral Intake 360.00 Output Urine Voided 1200.00 Stool Count 1.00 Urine Count 4.00 Total Summary Total Intake 729.08 Total Output 1200.00 Fluid Balance -470.92 Physical Exam - GENERAL: No acute distress. - HEENT: EOMI. moist mucous membranes. - LUNGS: Decreased bilaterally. No wheezes. - CARDIOVASCULAR: Tachycardic, regular - ABDOMEN: Obese, soft - EXTREMITIES: No edema. - SKIN: No rashes or lesions. Warm. - NEUROLOGIC: No focal neurological deficits. - PSYCHIATRIC: Cooperative. Appropriate mood and affect. Weight Dosing Weight: 159 kg (08/01/22) Medications Medications (21) Active Scheduled: (12) cefTRIAXone IVP syringe 2 gram(s) 20 mL, IV Push (INT), qDay folic acid 1 mg tablet 1 mg 1 tab(s), Oral, qDay lidocaine patch REMOVAL 1 EA, Miscellaneous, q24h lidocaine patch REMOVAL 1 EA, Miscellaneous, Once lidocaine topical 4% patch 1 patch(es), Transdermal, q24h menthol (Biofreeze) gel packet 1 julia, Topical, qDay metoprolol tartrate 25 mg tablet 25 mg 1 tab(s), Oral, BID miconazole topical 2% Powder 1 julia, Topical, BID Nicoderm patch REMOVAL 1 EA, Miscellaneous, q24h nicotine 14 mg/24 hr ER patch 14 mg 1 patch(es), Transdermal, q24h sodium zirconium cyclosilicate 10 g REC packet 10 gram(s) 1 packet(s), Oral, Once thiamine (w/calcium) 100 mg tablet 100 mg 1 tab(s), Oral, qDay Continuous: (1) heparin 25,000 unit(s) [15.723 unit(s)/kg/hr] + Dextrose 5% Premix Diluent 250 mL 250 mL, Intravenous, 25 mL/hr PRN: (8) acetaminophen 325 mg Tablet 650 mg 2 tab(s), Oral, q4h acetaminophen-OXYcodone 325 mg-5 mg Tablet 1 tab(s), Oral, q4h acetaminophen-OXYcodone 325 mg-5 mg Tablet 2 tab(s), Oral, q4h heparin 5,000 units/mL (1 mL) vial 8,750 unit(s) 1.75 mL, IV Push, q6h heparin 5,000 units/mL (1 mL) vial 6,360 unit(s) 1.27 mL, IV Push, q6h melatonin 5 mg tablet 5 mg 1 tab(s), Oral, qHS ondansetron 2 mg/ 1 mL 2 mL INJ 4 mg 2 mL, IV Push, q4h sodium zirconium cyclosilicate 10 g REC packet 10 gram(s) 1 packet(s), Oral, q8hr Lab Results 08/04 06:24 WBC: 14.6 H Hgb: 15.1 Hct: 46.9 Platelet: 182 Neutrophil %: 82.5 H Glucose Level: 115 H Sodium Level: 137 Potassium Level: 6.1 C BUN: 27.0 H Creatinine Lvl (s): 1.41 H 08/03 11:34 Glucose Level: 99 Sodium Level: 137 Potassium Level: 4.8 BUN: 26.0 H Creatinine Lvl (s): 1.16 08/03 04:41 WBC: 17.6 H Hgb: 14.4 Hct: 44.4 Platelet: 195 Neutrophil %: 83.3 H Glucose Level: 122 H Sodium Level: 141 Potassium Level: 5.6 H BUN: 26.0 H Creatinine Lvl (s): 1.23 EKG Electrocardiogram (EKG) - InProcess -- 08/03/22 9:45:00 EDT Electrocardiogram (EKG) - Ordered -- 08/04/22 8:00:00 EDT Assessment/Plan Assessment: Pulmonary embolism right main pulmonary artery Likely pulmonary infarct Leukocytosis , possible UTI Hypoxemic respiratory failure Atrial flutter/tachyarrhythmia Comorbidities include: Metastatic renal cell carcinoma, tobacco use, obesity, likely AKHIL, regular alcohol use Plan: Wean nasal cannula to maintain saturation more than 92% Continue heparin by weight for now Cardiology consulted for atrial flutter. Patient currently on metoprolol 25 mg twice daily. Ongoingtachycardia may be due to his pain. If he remains tachycardic after adequate pain control can increase metoprolol to 50 mg twice daily Consultation to primary oncologist plan for CT abdomen pelvis to reevaluate cancer status Continue empiric ceftriaxone due to pyuria. Can be discontinued if urine culture came back negative. Facundoma for hyperkalemia. Repeat BMP Appears to be having musculoskeletal chest wall pain. Will apply lidocaine patch, Biofreeze. Tylenol and oxycodone as needed for pain If heart rate improves okay to transfer out of ICU 30 minutes critical care time Digitally Signed by JOI SORIANO MD on 08/04/2022 09:07 AM [id number] Note ORIGINAL HISTORY: Hypoxia COMPARISON: Previous day FINDINGS: Lung volumes are low. A right port is unchanged. There are mild streaky and patchy airspace opacities in the right base. Pulmonary vasculature is unremarkable in appearance. IMPRESSION: Mild right atelectasis and or consolidation, also seen on the comparison. Interpreted by: Andi Tinoco MD Preliminary Report By: Andi Tinoco MD Electronically signed By Andi Tinoco MD Dictated Date: 08/04/2022 9:04:07 AM Prelim Date: 08/04/2022 9:04:46 AM Sign Date: 08/04/2022 9:04:46 AM Ordering Provider: RACHELL OSBORNE [id number] Cardiology Progress note Date of Service 08/04/22 Chief Complaint SOB RFC Atrial flutter HPI 42-year-old man with past medical history of medical history of metastatic renal cell carcinoma (status post left nephrectomy 08/2020, radiation, ipilimumab, nivolumab), T11 vertebral body fracture due to lytic bone lesion, suspected AKHIL/OHS tobacco abuse, alcohol abuse and morbid obesity came into the emergency department at [facility] due to complaints of shortness of breath and chest pain. Initial CT angio of the chest showed right main pulmonary artery embolism with concern for right heart strain. Patient was transferred to the [facility] for further management under MICU care. During stay vascular surgery was consulted for EKOS thrombolysis. Patient also underwent transthoracic echoc ardiogram during stay which showed LVEF of 55 to 60% with moderately to severely reduced RV function. Postoperative course complicated by tachyarrhythmia. Initial EKG concerning for 2:1 atrial flutter. Cardiology consulted for atrial flutter. Subjective No acute events overnight No new complaints Intake and Output 7AM Yesterday to 7AM Today Intake and Output (Last 24 hours) Intake Administration Information 369.08 Oral Intake 360.00 Output Urine Voided 1200.00 Stool Count 1.00 Urine Count 4.00 Total Summary Total Intake 729.08 Total Output 1200.00 Fluid Balance -470.92 Physical Exam General: AAOX3, mild distress, morbidly obese man HEENT: Anicteric sclera, MMM Neck: Trachea midline, no JVD appreciated CVS: Irregular rate, regular rhythm, normal S1/S2, no murmurs/rubs/gallops Lung: Decreased lung sounds at the bases, increased work of breathing Abd: Soft, NT/ND Extrem: WWP, trace LE edema Skin: Warm, Intact Neuro: AAOX3, spontaneous movement of all extremities Psych: Appropriate mood & affect Weight Dosing Weight: 159 kg (08/01/22) Medications Medications (17) Active Scheduled: (8) cefTRIAXone IVP syringe 2 gram(s) 20 mL, IV Push (INT), qDay folic acid 1 mg tablet 1 mg 1 tab(s), Oral, qDay metoprolol tartrate 25 mg tablet 25 mg 1 tab(s), Oral, BID miconazole topical 2% Powder 1 julia, Topical, BID Nicoderm patch REMOVAL 1 EA, Miscellaneous, q24h nicotine 14 mg/24 hr ER patch 14 mg 1 patch(es), Transdermal, q24h sodium zirconium cyclosilicate 10 g REC packet 10 gram(s) 1 packet(s), Oral, Once thiamine (w/calcium) 100 mg tablet 100 mg 1 tab(s), Oral, qDay Continuous: (1) heparin 25,000 unit(s) [15.723 unit(s)/kg/hr] + Dextrose 5% Premix Diluent 250 mL 250 mL, Intravenous, 25 mL/hr PRN: (8) acetaminophen 325 mg Tablet 650 mg 2 tab(s), Oral, q4h acetaminophen-OXYcodone 325 mg-5 mg Tablet 1 tab(s), Oral, q4h acetaminophen-OXYcodone 325 mg-5 mg Tablet 2 tab(s), Oral, q4h heparin 5,000 units/mL (1 mL) vial 8,750 unit(s) 1.75 mL, IV Push, q6h heparin 5,000 units/mL (1 mL) vial 6,360 unit(s) 1.27 mL, IV Push, q6h melatonin 5 mg tablet 5 mg 1 tab(s), Oral, qHS ondansetron 2 mg/ 1 mL 2 mL INJ 4 mg 2 mL, IV Push, q4h sodium zirconium cyclosilicate 10 g REC packet 10 gram(s) 1 packet(s), Oral, q8hr Lab Results 08/04 06:24 WBC: 14.6 H Hgb: 15.1 Hct: 46.9 Platelet: 182 Neutrophil %: 82.5 H Glucose Level: 115 H Sodium Level: 137 Potassium Level: 6.1 C BUN: 27.0 H Creatinine Lvl (s): 1.41 H 08/03 11:34 Glucose Level: 99 Sodium Level: 137 Potassium Level: 4.8 BUN: 26.0 H Creatinine Lvl (s): 1.16 08/03 04:41 WBC: 17.6 H Hgb: 14.4 Hct: 44.4 Platelet: 195 Neutrophil %: 83.3 H Glucose Level: 122 H Sodium Level: 141 Potassium Level: 5.6 H BUN: 26.0 H Creatinine Lvl (s): 1.23 Imaging Results and Diagnostics XR Chest 1 View Result Date: August 03, 2022 Verified By: CLINICAL STATEMENT: IMPRESSION: IR Pulmonary Angio/EKOS Cath Place Result Date: August 02, 2022 Verified By: CLINICAL STATEMENT: IMPRESSION: XR Chest 1 View Result Date: August 02, 2022 Verified By: JANICE MITCHELL MD CLINICAL STATEMENT: IMPRESSION: Right infrahilar hazy opacifications likely on the basis of subsegmentalatelectasis. A developing infectious/inflammatory etiology cannot be ruledout however. I have personally reviewed the images of this examination and agree with theresident's findings and interpretation. Transthoracic Echocardiography Study date: 08/02/2022 Study Time: 07:16 AM 1. Left ventricle: Systolic function is probably normal. The estimated ejection fraction is 55-60%.Wall motion is normal; there are no regional wall motion abnormalities. Unable to assess diastolic function. 2. Aortic valve: Thickening, consistent with sclerosis. 3. Right ventricle: Systolic function is moderately to severely reduced. Systolic pressure is mildly increased. The RV systolic pressure by Doppler is 33 mm Hg. 4. Right atrium: The atrium is mildly dilated. The estimated right atrial pressure is 8 mm Hg. 5. This was a technically limited study. Study data: Patient unit: MICU. Patient room number: 3714. Transthoracic echocardiography. M-mode, complete 2D, complete spectral Doppler, and color Doppler. Study status: Routine. Patient status: Inpatient. Objective: Chest pain; PE. Location: ICU Procedure room # 3714. Procedure: Transthoracic echocardiography was performed for diagnosis. Image quality was poor. The study was technically limited due to body habitus. 2 ml of intravenous contrast (Definity) was administered to opacify the LV. Left ventricle: Wall thickness could not be accurately determined. Systolic function is probably normal. The estimated ejection fraction is 55-60%. Wall motion is normal; there are no regional wall motion abnormalities. Unable to assess diastolic function. Unable to evaluate severity grade due to technically limited study. Left atrium: Not visualized. Right ventricle: Not well visualized. The cavity size is normal. Systolic function is moderately toseverely reduced. Systolic pressure is mildly increased. The RV systolic pressure by Doppler is 33 mm Hg. Right atrium: The atrium is mildly dilated. The estimated right atrial pressure is 8 mm Hg. Mitral valve: Poorly visualized. The leaflets are normal thickness. The pressure half-time is 26 ms. The valve area (LVOT continuity) is 3.3 cm . Doppler: Transvalvular velocity is within the normal range. There is no evidence for stenosis. There is no significant regurgitation. The mean diastolic gradient is 4 mm Hg. The valve area by pressurehalf-time is 8.5 cm . Aortic valve: Poorly visualized. The valve is probably trileaflet. Thickening, consistent with sclerosis. The peak systolic velocity is 1 m/sec. The systolic velocity-time integral is 13.8 cm. The mean systolic gradient is 2 mm Hg. The LVOT to aortic valve VTI ratio is 0.87. The valve area by VTI is 2.9 cm . The valve area by peak velocity is 2.5 cm . Doppler: Transvalvular velocity is within the normal range. There is no stenosis. There is no regurgitation. Tricuspid valve: Not well visualized. The valve is structurally normal. The regurgitant peak velocity is 2.5 m/sec. Doppler: There is no evidence for stenosis. There is no regurgitation. Pulmonic valve: Poorly visualized. The peak systolic velocity is 1.06 m/sec. Doppler: There is no evidence for stenosis. There is no regurgitation. Aorta: Aortic root: The aortic root is normal. Systemic veins: Inferior vena cava: The IVC is normal-sized. Respirophasic diameter changes are in the normal range(> 50%). EKG Electrocardiogram (EKG) - InProcess -- 08/03/22 9:45:00 EDT Electrocardiogram (EKG) - Ordered -- 08/04/22 8:00:00 EDT Assessment/Plan #2:1 Atrial flutter #Massive pulmonary embolism #RV strain #Leukocytosis #Hyperkalemia increasing to #Acute hypoxic respiratory failure #Metastatic renal cell carcinoma #History of T11 fracture due to bony metastasis #Tobacco abuse #Alcohol abuse #AKHIL/OHS? #Morbid obesity - Latest EKG reviewed - Latest imaging reviewed - Latest echocardiogram reviewed Recommendations: - Anticoagulation: IV heparin drip - Rhythm control: None - Rate control: Increasing to Metoprolol tartrate 50 mg twice daily - Ordered VBG stat - Ordered potassium level stat - Ordered liver function panel stat - Ordered lactic acid stat Patient seen and discussed with Dr. Yessi Melgar II, MD PGY-4 Cardiovascular Disease Fellow Pager: [phone] Digitally Signed by RACHELL MELGAR MD on 08/04/2022 04:20 PM Digitally Signed by RACHELL MELGAR MD on 08/04/2022 04:27 PM [id number] Note ORIGINAL HISTORY: Hypoxia COMPARISON: Previous day FINDINGS: Lung volumes are low. A right port is unchanged. There are mild streaky and patchy airspace opacities in the right base. Pulmonary vasculature is unremarkable in appearance. IMPRESSION: Mild right atelectasis and or consolidation, also seen on the comparison. Interpreted by: Andi Tinoco MD Preliminary Report By: Andi Tinoco MD Electronically signed By Andi Tinoco MD Dictated Date: 08/04/2022 9:04:07 AM Prelim Date: 08/04/2022 9:04:46 AM Sign Date: 08/04/2022 9:04:46 AM Ordering Provider: [facility]06-21-2023 Oncology Consult note Date of Service 08/03/2022 Reason for Consultation metastatic renal cancer This is a split/shared visit between Dr. Triana and myself History of Present Illness Patient is a 42-year-old male with past medical history of metastatic renal cell carcinoma, T11 vertebral body fracture, AKHIL. Patient presented to the hospital with shortness of breath and chest painon 08/01. CTA of the chest was done and showed large pulmonary embolism in the right distal main pulmonary artery, right middle and right lower lobe pulmonary arteries, evidence of heart strain. Vascul ar surgery was consulted for EKOS that was done on 08/02. Patient remains in SICU due to high oxygendemands, currently on high flow, critical care managing. Patient is known to the cancer center for management of metastatic renal cell carcinoma. Patient was diagnosed in 2020. He underwent left cytoreductive nephrectomy. 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 In October patient was started on nivolumab and ipi limumab. After 4 cycles ipilimumab was discontinued and patient was continued on nivolumab. Most recently he received cycle 24 on 07/07. He was due for cycle 25 on 08/04. Today patient is resting in bed. He reports he came into the hospital with worsening shortness of breath and chest pain over the past few days. Patient was found to have large PE with heart strain. Patient denied any worsening swelling, pain or redness in the legs. He does report he is feeling better since coming in the hospital. He is currently on high flow nasal cannula at 68% FiO2. He denies any previous history of blood clots. He does report his father had a blood clot and heart attack in his 60s. He denies any further family history of blood clots, strokes or heart attack or miscarriages. Patient denies any recent surgeries or travel. He does report he is not very active at home. Patient reports tobacco use for 29 years roughly 1 to 1/2 packs/day. Patient also reports alcohol use roughly 4 days a week. Will hold off on treatment tomorrow. Will order CT abd/pelvis to evaluate cancerstatus, last scan done in February. Lab Results Test Name Test Result Date/TimeWBC 17.6 10^3/mcL (High) 08/03/2022 04:41 EDT Hgb 14.4 G/dL 08/03/2022 04:41 EDT Platelet 195 10^3/mcL 08/03/2022 04:41 EDT Review of Systems 14 system review is negative except as charted in the HPI Physical Exam Vitals and Measurements T: 36.8 C (Oral) TMIN: 36.4 C (Oral) TMAX: 36.8 C (Oral) HR: 138(Monitored) RR: 20 BP: 134/95 SpO2:100% General Appearance: no acute distress Eyes: PERRLA Nose: External nose normal Ears: External ears normal Throat: Trachea midline Neck: no mass Lymph nodes: Not palpable Cardiac: RRR S1 and S2 no murmur Lungs: clear bilaterally Abdomen: soft non-tender BSx4 Neurological: A&Ox3 follows commands Skin: warm dry and intact Musculoskeletal: strength intact Psychiatric: appropriate mood and affect Weight Dosing Weight: 159 kg (08/01/22) Lab Results 08/03 04:41 WBC: 17.6 H Hgb: 14.4 Hct: 44.4 Platelet: 195 Neutrophil %: 83.3 H Glucose Level: 122 H Sodium Level: 141 Potassium Level: 5.6 H BUN: 26.0 H Creatinine Lvl (s): 1.23 08/02 17:21 Hgb: 15.7 Hct: 48.8 Platelet: 169 Protime: 13.8 PT International Ratio: 1.2 08/02 11:34 WBC: 18.6 H Hgb: 15.0 Hct: 46.4 Platelet: 167 Neutrophil %: 90.8 H Glucose Level: 183 H Sodium Level: 137 Potassium Level: 4.8 BUN: 26.0 H Creatinine Lvl (s): 1.55 H 08/01 22:38 WBC: 15.0 H Hgb: 15.7 Hct: 48.2 Platelet: 149 L Neutrophil %: 94.3 H Protime: 15.7 H PT International Ratio: 1.3 Glucose Level: 160 H Sodium Level: 136 Potassium Level: 4.5 BUN: 20.0 Creatinine Lvl (s): 1.37 Imaging Results and Diagnostics (08/03/2022 06:32 EDT XR Chest 1 View) IMPRESSION: Ill-defined hazy opacification in the right lower lung. Considerations include sequelae of pulmonary infarct as well as subsegmental atelectasis. Infectious/inflammatory etiologies are considered less likely especially given current clinical picture. [1] (08/01/2022 18:[address] Angiography Chest w/ Contrast) IMPRESSION: Large pulmonary embolism in the distal right main pulmonary artery, right middle and right lower lobar pulmonary arteries, with non opacification of the distal branches. Evidence of right heart strain. [2] Assessment/Plan Metastatic renal cell carcinoma, diagnosed in 2020, currently on nivolumab, C24 given on 07/07, C25 was due 08/04, will hold off on treatment while patient is in the hospital, will order CT abdomen/pelvis to evaluate cancer status, last scan was done in [place], CTA of the chest showed large PE in the right distal main artery, right middle and right lower lobe pulmonary arteries with heart strain Vascular surgery following, EKOS done on 08/02 Patient currently on IV heparin, oral anticoagulation prior to discharge Patient currently on high flow nasal cannula, critical care managing Possible UTI, patient on ceftriaxone, urine culture pending Please see Dr. Triana's addendum for further recommendations Problem List/Past Medical History Ongoing Alcohol abuse Left renal mass. 9.6-cm. With perinephric fat invasion. With lytic bony lesion and pulmonary nodules concerning for mets. BS, 07/2020 - neg. CT brain, 07/2020 - neg. S/P Radical nephrectomy 08/14/20. Metastatic renal cell carcinoma. S/P Left cytoreductive nephrectomy 08/14/20. Final path - ccRCC withsarcomatoid features. No chronic diseases present T11 vertebral fracture Tobacco abuse Viral gastroenteritis Cigarette smoker Active Lung nodule, multiple Active Marijuana user Active Secondary malignant neoplasm of bone (disorder) Active Historical Renal cell carcinoma (disorder) Active Procedure/Surgical History Tooth extraction: 08/28/21 Nephrectomy, including partial ureterectomy, any open approach including rib resection; radical, with regional lymphadenectomy and/or vena caval thrombectomy: 08/14/20 Tonsillectomy Boost radiation therapy Chemotherapy Medications folic acid, 1 mg= 1 tab(s), Oral, qDay Heparin for IV 25,000 unit(s) [15.723 unit(s)/kg/hr] + Dextrose 5% Premix Diluent 250 mL Heparin HBW Bolus 5000 units/mL, 8750 unit(s)= 1.75 mL, 70 unit(s)/kg, IV Push, q6h, PRN Heparin HBW Bolus 5000 units/mL, 6360 unit(s)= 1.27 mL, 40 unit(s)/kg, IV Push, q6h, PRN melatonin, 5 mg= 1 tab(s), Oral, qHS, PRN Miralax 255 gm bottle, Oral, qDay, PRN Nicoderm C-Q 14 mg/24 hr transdermal film, extended release, 14 mg= 1 patch(es), Transdermal, q24h nicotine (Nicoderm Patch REMOVAL), 1 EA, Miscellaneous, q24h oxyCODONE 5 mg oral tablet ( IMMEDIATE release ), 5 mg= 1 tab(s), Oral, q8h, PRN Rocephin, 2 gram(s)= 20 mL, IV Push (INT), qDay senna 8.6 mg oral tablet, 17.2 mg= 2 tab(s), Oral, BID, PRN thiamine, 100 mg= 1 tab(s), Oral, qDay Allergies penicillin (Swelling) Family History Bladder cancer: Negative: Mother, Father, Sister, Brother, Daughter, Son and Grandparent. Crohn's disease: Sister. Diabetes: Father. HTN - Hypertension: Mother and Father. Heart attack: Father. Heart disease: Negative: Mother, Father, Sister, Brother, Daughter, Son and Grandparent. Hypertension: Mother and Father.Negative: Sister, Brother, Daughter, Son and Grandparent. Kidney disease: Negative: Mother, Father, Sister, Brother, Daughter, Son and Grandparent. Kidney stone: Mother and Sister.Negative: Father, Brother, Daughter, Son and Grandparent. Prostate cancer: Negative: Father, Brother and Son. Renal cancer: Negative: Mother, Father, Sister, Brother, Daughter, Son and Grandparent. Rheumatoid arthritis: Mother. Social History Smoking Status - 11/07/2016 Current every day smoker Alcohol - Medium Risk, 11/07/2016 Use: Current. Type: Beer. Frequency: Daily. Previous treatment: Outpatient. Has alcohol use interfered with work or home life: No. Do you ever drink more than intended: Yes. Has anyone been hurt or at risk by your drinking: Yes. Ready to change: Yes., 03/07/2022 Employment/School Status: Employed., 12/16/2020 Home/Environment Domestic Concerns: None. Living situation: Home with assistance. 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 Safe place to go: Yes. Lives In: Single level home, 1st floor bedroom, 1st floor bathroom, 1st floor laundry., 08/14/2020 Nutrition/Health Caffeine intake amount: 1 can of pop once a week., 11/06/2020 Type of diet: Regular. Appetite Excellent. Eating Difficulties None., 08/14/2020 Substance Abuse - Denies Substance Abuse, 11/07/2016 Use: Current. Type: Marijuana. Frequency: 1-2 times per month. IV drug use; No. Ready to change: No. Concerns about substance abuse in household: No., 08/14/2020 Tobacco Nicotine Use: 10 or more cigarettes (1/2 pack or more)/day in last 30 days. Type: Cigarettes. Started at age: 13 Years. Ready to change: Yes., 08/07/2020 [1] XR Chest 1 View; 08/03/2022 06:32 EDT [2] CT Angiography Chest w/ Contrast; RAY MARTE MD 08/01/2022 18:58 EDT Digitally Signed by TAMI VELASQUEZ on 08/03/2022 12:01 PM [id number] Cardiology Consult note Date of Service 08/03/22 Reason for Consultation Atrial flutter Referring Physician SICU History of Present Illness 42-year-old man with past medical history of medical history of metastatic renal cell carcinoma (status post left nephrectomy 08/2020, radiation, ipilimumab, nivolumab), T11 vertebral body fracture due to lytic bone lesion, suspected AKHIL/OHS tobacco abuse, alcohol abuse and morbid obesity came into the emergency department at [facility] due to complaints of shortness of breath and chest pain. Initial CT angio of the chest showed right main pulmonary artery embolism with concern for right heart strain. Patient was [facility] for further management under MICU care. During stay vascular surgery was consulted for EKOS thrombolysis. Patient also underwent transthoracic echoc ardiogram during stay which showed LVEF of 55 to 60% with moderately to severely reduced RV function. Postoperative course complicated by tachyarrhythmia. Initial EKG concerning for 2:1 atrial flutter. Cardiology consulted for atrial flutter. Review of Systems Per HPI, Complete ROS otherwise negative Physical Exam Vitals and Measurements Weight Dosing Weight: 159 kg (08/01/22) General: AAOX3, mild distress, morbidly obese man HEENT: Anicteric sclera, MMM Neck: Trachea midline, no JVD appreciated CVS: Irregular rate, regular rhythm, normal S1/S2, no murmurs/rubs/gallops Lung: Decreased lung sounds at the bases, increased work of breathing Abd: Soft, NT/ND Extrem: WWP, trace LE edema Skin: Warm, Intact Neuro: AAOX3, spontaneous movement of all extremities Psych: Appropriate mood & affect Lab Results 08/03 11:34 Glucose Level: 99 Sodium Level: 137 Potassium Level: 4.8 BUN: 26.0 H Creatinine Lvl (s): 1.16 08/03 04:41 WBC: 17.6 H Hgb: 14.4 Hct: 44.4 Platelet: 195 Neutrophil %: 83.3 H Glucose Level: 122 H Sodium Level: 141 Potassium Level: 5.6 H BUN: 26.0 H Creatinine Lvl (s): 1.23 08/02 17:21 Hgb: 15.7 Hct: 48.8 Platelet: 169 Protime: 13.8 PT International Ratio: 1.2 08/02 11:34 WBC: 18.6 H Hgb: 15.0 Hct: 46.4 Platelet: 167 Neutrophil %: 90.8 H Glucose Level: 183 H Sodium Level: 137 Potassium Level: 4.8 BUN: 26.0 H Creatinine Lvl (s): 1.55 H Imaging Results and Diagnostics XR Chest 1 View Result Date: August 03, 2022 Verified By: CLINICAL STATEMENT: IMPRESSION: IR Pulmonary Angio/EKOS Cath Place Result Date: August 02, 2022 Verified By: CLINICAL STATEMENT: IMPRESSION: XR Chest 1 View Result Date: August 02, 2022 Verified By: JANICE MITCHELL MD CLINICAL STATEMENT: IMPRESSION: Right infrahilar hazy opacifications likely on the basis of subsegmentalatelectasis. A developing infectious/inflammatory etiology cannot be ruledout however. I have personally reviewed the images of this examination and agree with theresident's findings and interpretation. Transthoracic Echocardiography Study date: 08/02/2022 Study Time: 07:16 AM 1. Left ventricle: Systolic function is probably normal. The estimated ejection fraction is 55-60%.Wall motion is normal; there are no regional wall motion abnormalities. Unable to assess diastolic function. 2. Aortic valve: Thickening, consistent with sclerosis. 3. Right ventricle: Systolic function is moderately to severely reduced. Systolic pressure is mildly increased. The RV systolic pressure by Doppler is 33 mm Hg. 4. Right atrium: The atrium is mildly dilated. The estimated right atrial pressure is 8 mm Hg. 5. This was a technically limited study. Study data: Patient unit: MICU. Patient room number: 3714. Transthoracic echocardiography. M-mode, complete 2D, complete spectral Doppler, and color Doppler. Study status: Routine. Patient status: Inpatient. Objective: Chest pain; PE. Location: ICU Procedure room # 3714. Procedure: Transthoracic echocardiography was performed for diagnosis. Image quality was poor. The study was technically limited due to body habitus. 2 ml of intravenous contrast (Definity) was administered to opacify the LV. Left ventricle: Wall thickness could not be accurately determined. Systolic function is probably normal. The estimated ejection fraction is 55-60%. Wall motion is normal; there are no regional wall motion abnormalities. Unable to assess diastolic function. Unable to evaluate severity grade due to technically limited study. Left atrium: Not visualized. Right ventricle: Not well visualized. The cavity size is normal. Systolic function is moderately toseverely reduced. Systolic pressure is mildly increased. The RV systolic pressure by Doppler is 33 mm Hg. Right atrium: The atrium is mildly dilated. The estimated right atrial pressure is 8 mm Hg. Mitral valve: Poorly visualized. The leaflets are normal thickness. The pressure half-time is 26 ms. The valve area (LVOT continuity) is 3.3 cm . Doppler: Transvalvular velocity is within the normal range. There is no evidence for stenosis. There is no significant regurgitation. The mean diastolic gradient is 4 mm Hg. The valve area by pressurehalf-time is 8.5 cm . Aortic valve: Poorly visualized. The valve is probably trileaflet. Thickening, consistent with sclerosis. The peak systolic velocity is 1 m/sec. The systolic velocity-time integral is 13.8 cm. The mean systolic gradient is 2 mm Hg. The LVOT to aortic valve VTI ratio is 0.87. The valve area by VTI is 2.9 cm . The valve area by peak velocity is 2.5 cm . Doppler: Transvalvular velocity is within the normal range. There is no stenosis. There is no regurgitation. Tricuspid valve: Not well visualized. The valve is structurally normal. The regurgitant peak velocity is 2.5 m/sec. Doppler: There is no evidence for stenosis. There is no regurgitation. Pulmonic valve: Poorly visualized. The peak systolic velocity is 1.06 m/sec. Doppler: There is no evidence for stenosis. There is no regurgitation. Aorta: Aortic root: The aortic root is normal. Systemic veins: Inferior vena cava: The IVC is normal-sized. Respirophasic diameter changes are in the normal range(> 50%). Assessment/Plan #2:1 Atrial flutter #Massive pulmonary embolism #RV strain #Leukocytosis #Acute hypoxic respiratory failure #Metastatic renal cell carcinoma #History of T11 fracture due to bony metastasis #Tobacco abuse #Alcohol abuse #AKHIL/OHS? #Morbid obesity - Latest EKG reviewed - Latest imaging reviewed - Latest echocardiogram reviewed Plan: - Anticoagulation: IV heparin drip - Rhythm control: None - Rate control: Starting metoprolol to tartrate 25 mg twice daily Patient seen and discussed with Dr. Yessi Melgar II, MD PGY-4 Cardiovascular Disease Fellow Pager: [phone] Problem List/Past Medical History Ongoing Alcohol abuse Left renal mass. 9.6-cm. With perinephric fat invasion. With lytic bony lesion and pulmonary nodules concerning for mets. BS, 07/2020 - neg. CT brain, 07/2020 - neg. S/P Radical nephrectomy 08/14/20. Metastatic renal cell carcinoma. S/P Left cytoreductive nephrectomy 08/14/20. Final path - ccRCC withsarcomatoid features. No chronic diseases present T11 vertebral fracture Tobacco abuse Viral gastroenteritis Cigarette smoker Active Lung nodule, multiple Active Marijuana user Active Secondary malignant neoplasm of bone (disorder) Active Historical Renal cell carcinoma (disorder) Active Procedure/Surgical History Tooth extraction: 08/28/21 Nephrectomy, including partial ureterectomy, any open approach including rib resection; radical, with regional lymphadenectomy and/or vena caval thrombectomy: 08/14/20 Tonsillectomy Boost radiation therapy Chemotherapy Medications Inpatient folic acid, 1 mg= 1 tab(s), Oral, qDay Heparin for IV 25,000 unit(s) [15.723 unit(s)/kg/hr] + Dextrose 5% Premix Diluent 250 mL Heparin HBW Bolus 5000 units/mL, 8750 unit(s)= 1.75 mL, 70 unit(s)/kg, IV Push, q6h, PRN Heparin HBW Bolus 5000 units/mL, 6360 unit(s)= 1.27 mL, 40 unit(s)/kg, IV Push, q6h, PRN Lopressor, 25 mg= 1 tab(s), Oral, BID melatonin, 5 mg= 1 tab(s), Oral, qHS, PRN Nicoderm C-Q 14 mg/24 hr transdermal film, extended release, 14 mg= 1 patch(es), Transdermal, q24h nicotine (Nicoderm Patch REMOVAL), 1 EA, Miscellaneous, q24h Percocet 325/5, 1 tab(s), Oral, q4h, PRN Percocet 325/5, 2 tab(s), Oral, q4h, PRN Rocephin, 2 gram(s)= 20 mL, IV Push (INT), qDay thiamine, 100 mg= 1 tab(s), Oral, qDay Tylenol, 650 mg= 2 tab(s), Oral, q4h, PRN Zofran, 4 mg= 2 mL, IV Push, q4h, PRN Home Miralax 255 gm bottle, Oral, qDay, PRN oxyCODONE 5 mg oral tablet ( IMMEDIATE release ), 5 mg= 1 tab(s), Oral, q8h, PRN senna 8.6 mg oral tablet, 17.2 mg= 2 tab(s), Oral, BID, PRN Allergies penicillin (Swelling) Social History Smoking Status - 11/07/2016 Current every day smoker Alcohol - Medium Risk, 11/07/2016 Use: Current. Type: Beer. Frequency: Daily. Previous treatment: Outpatient. Has alcohol use interfered with work or home life: No. Do you ever drink more than intended: Yes. Has anyone been hurt or at risk by your drinking: Yes. Ready to change: Yes., 03/07/2022 Employment/School Status: Employed., 12/16/2020 Home/Environment Domestic Concerns: None. Living situation: Home with assistance. 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 Safe place to go: Yes. Lives In: Single level home, 1st floor bedroom, 1st floor bathroom, 1st floor laundry., 08/14/2020 Nutrition/Health Caffeine intake amount: 1 can of pop once a week., 11/06/2020 Type of diet: Regular. Appetite Excellent. Eating Difficulties None., 08/14/2020 Substance Abuse - Denies Substance Abuse, 11/07/2016 Use: Current. Type: Marijuana. Frequency: 1-2 times per month. IV drug use; No. Ready to change: No. Concerns about substance abuse in household: No., 08/14/2020 Tobacco Nicotine Use: 10 or more cigarettes (1/2 pack or more)/day in last 30 days. Type: Cigarettes. Started at age: 13 Years. Ready to change: Yes., 08/07/2020 Family History Bladder cancer: Negative: Mother, Father, Sister, Brother, Daughter, Son and Grandparent. Crohn's disease: Sister. Diabetes: Father. HTN - Hypertension: Mother and Father. Heart attack: Father. Heart disease: Negative: Mother, Father, Sister, Brother, Daughter, Son and Grandparent. Hypertension: Mother and Father.Negative: Sister, Brother, Daughter, Son and Grandparent. Kidney disease: Negative: Mother, Father, Sister, Brother, Daughter, Son and Grandparent. Kidney stone: Mother and Sister.Negative: Father, Brother, Daughter, Son and Grandparent. Prostate cancer: Negative: Father, Brother and Son. Renal cancer: Negative: Mother, Father, Sister, Brother, Daughter, Son and Grandparent. Rheumatoid arthritis: Mother. Immunizations SARS-CoV-2 (COVID-19) mRNA-1273 vaccine: 0.25 unknown unit (04/15/21) SARS-CoV-2 (COVID-19) mRNA-1273 vaccine: 0.5 unknown unit (10/15/20) SARS-CoV-2 (COVID-19) mRNA-1273 vaccine: 0.5 unknown unit (09/17/20) Digitally Signed by RACHELL MELGAR MD on 08/03/2022 07:10 PM Digitally Signed by RACHELL MELGAR MD on 08/03/2022 07:43 PM [id number] Cardiology Consult note Date of Service 08/03/22 Reason for Consultation Atrial flutter Referring Physician SICU History of Present Illness 42-year-old man with past medical history of medical history of metastatic renal cell carcinoma (status post left nephrectomy 08/2020, radiation, ipilimumab, nivolumab), T11 vertebral body fracture due to lytic bone lesion, suspected AKHIL/OHS tobacco abuse, alcohol abuse and morbid obesity came into the emergency department at [facility] due to complaints of shortness of breath and chest pain. Initial CT angio of the chest showed right main pulmonary artery embolism with concern for right heart strain. Patient was transferred to the [facility] for further management under MICU care. During stay vascular surgery was consulted for EKOS thrombolysis. Patient also underwent transthoracic echoc ardiogram during stay which showed LVEF of 55 to 60% with moderately to severely reduced RV function. Postoperative course complicated by tachyarrhythmia. Initial EKG concerning for 2:1 atrial flutter. Cardiology consulted for atrial flutter. Review of Systems Per HPI, Complete ROS otherwise negative Physical Exam Vitals and Measurements Weight Dosing Weight: 159 kg (08/01/22) General: AAOX3, mild distress, morbidly obese man HEENT: Anicteric sclera, MMM Neck: Trachea midline, no JVD appreciated CVS: Irregular rate, regular rhythm, normal S1/S2, no murmurs/rubs/gallops Lung: Decreased lung sounds at the bases, increased work of breathing Abd: Soft, NT/ND Extrem: WWP, trace LE edema Skin: Warm, Intact Neuro: AAOX3, spontaneous movement of all extremities Psych: Appropriate mood & affect Lab Results 08/03 11:34 Glucose Level: 99 Sodium Level: 137 Potassium Level: 4.8 BUN: 26.0 H Creatinine Lvl (s): 1.16 08/03 04:41 WBC: 17.6 H Hgb: 14.4 Hct: 44.4 Platelet: 195 Neutrophil %: 83.3 H Glucose Level: 122 H Sodium Level: 141 Potassium Level: 5.6 H BUN: 26.0 H Creatinine Lvl (s): 1.23 08/02 17:21 Hgb: 15.7 Hct: 48.8 Platelet: 169 Protime: 13.8 PT International Ratio: 1.2 08/02 11:34 WBC: 18.6 H Hgb: 15.0 Hct: 46.4 Platelet: 167 Neutrophil %: 90.8 H Glucose Level: 183 H Sodium Level: 137 Potassium Level: 4.8 BUN: 26.0 H Creatinine Lvl (s): 1.55 H Imaging Results and Diagnostics XR Chest 1 View Result Date: August 03, 2022 Verified By: CLINICAL STATEMENT: IMPRESSION: IR Pulmonary Angio/EKOS Cath Place Result Date: August 02, 2022 Verified By: CLINICAL STATEMENT: IMPRESSION: XR Chest 1 View Result Date: August 02, 2022 Verified By: JANICE MITCHELL MD CLINICAL STATEMENT: IMPRESSION: Right infrahilar hazy opacifications likely on the basis of subsegmentalatelectasis. A developing infectious/inflammatory etiology cannot be ruledout however. I have personally reviewed the images of this examination and agree with theresident's findings and interpretation. Transthoracic Echocardiography Study date: 08/02/2022 Study Time: 07:16 AM 1. Left ventricle: Systolic function is probably normal. The estimated ejection fraction is 55-60%.Wall motion is normal; there are no regional wall motion abnormalities. Unable to assess diastolic function. 2. Aortic valve: Thickening, consistent with sclerosis. 3. Right ventricle: Systolic function is moderately to severely reduced. Systolic pressure is mildly increased. The RV systolic pressure by Doppler is 33 mm Hg. 4. Right atrium: The atrium is mildly dilated. The estimated right atrial pressure is 8 mm Hg. 5. This was a technically limited study. Study data: Patient unit: MICU. Patient room number: 3714. Transthoracic echocardiography. M-mode, complete 2D, complete spectral Doppler, and color Doppler. Study status: Routine. Patient status: Inpatient. Objective: Chest pain; PE. Location: ICU Procedure room # 3714. Procedure: Transthoracic echocardiography was performed for diagnosis. Image quality was poor. The study was technically limited due to body habitus. 2 ml of intravenous contrast (Definity) was administered to opacify the LV. Left ventricle: Wall thickness could not be accurately determined. Systolic function is probably normal. The estimated ejection fraction is 55-60%. Wall motion is normal; there are no regional wall motion abnormalities. Unable to assess diastolic function. Unable to evaluate severity grade due to technically limited study. Left atrium: Not visualized. Right ventricle: Not well visualized. The cavity size is normal. Systolic function is moderately toseverely reduced. Systolic pressure is mildly increased. The RV systolic pressure by Doppler is 33 mm Hg. Right atrium: The atrium is mildly dilated. The estimated right atrial pressure is 8 mm Hg. Mitral valve: Poorly visualized. The leaflets are normal thickness. The pressure half-time is 26 ms. The valve area (LVOT continuity) is 3.3 cm . Doppler: Transvalvular velocity is within the normal range. There is no evidence for stenosis. There is no significant regurgitation. The mean diastolic gradient is 4 mm Hg. The valve area by pressurehalf-time is 8.5 cm . Aortic valve: Poorly visualized. The valve is probably trileaflet. Thickening, consistent with sclerosis. The peak systolic velocity is 1 m/sec. The systolic velocity-time integral is 13.8 cm. The mean systolic gradient is 2 mm Hg. The LVOT to aortic valve VTI ratio is 0.87. The valve area by VTI is 2.9 cm . The valve area by peak velocity is 2.5 cm . Doppler: Transvalvular velocity is within the normal range. There is no stenosis. There is no regurgitation. Tricuspid valve: Not well visualized. The valve is structurally normal. The regurgitant peak velocity is 2.5 m/sec. Doppler: There is no evidence for stenosis. There is no regurgitation. Pulmonic valve: Poorly visualized. The peak systolic velocity is 1.06 m/sec. Doppler: There is no evidence for stenosis. There is no regurgitation. Aorta: Aortic root: The aortic root is normal. Systemic veins: Inferior vena cava: The IVC is normal-sized. Respirophasic diameter changes are in the normal range(> 50%). Assessment/Plan #2:1 Atrial flutter #Massive pulmonary embolism #RV strain #Leukocytosis #Acute hypoxic respiratory failure #Metastatic renal cell carcinoma #History of T11 fracture due to bony metastasis #Tobacco abuse #Alcohol abuse #AKHIL/OHS? #Morbid obesity - Latest EKG reviewed - Latest imaging reviewed - Latest echocardiogram reviewed Plan: - Anticoagulation: IV heparin drip - Rhythm control: None - Rate control: Starting metoprolol to tartrate 25 mg twice daily Patient seen and discussed with Dr. Yessi Melgar II, MD PGY-4 Cardiovascular Disease Fellow Pager: [phone] Problem List/Past Medical History Ongoing Alcohol abuse Left renal mass. 9.6-cm. With perinephric fat invasion. With lytic bony lesion and pulmonary nodules concerning for mets. BS, 07/2020 - neg. CT brain, 07/2020 - neg. S/P Radical nephrectomy 08/14/20. Metastatic renal cell carcinoma. S/P Left cytoreductive nephrectomy 08/14/20. Final path - ccRCC withsarcomatoid features. No chronic diseases present T11 vertebral fracture Tobacco abuse Viral gastroenteritis Cigarette smoker Active Lung nodule, multiple Active Marijuana user Active Secondary malignant neoplasm of bone (disorder) Active Historical Renal cell carcinoma (disorder) Active Procedure/Surgical History Tooth extraction: 08/28/21 Nephrectomy, including partial ureterectomy, any open approach including rib resection; radical, with regional lymphadenectomy and/or vena caval thrombectomy: 08/14/20 Tonsillectomy Boost radiation therapy Chemotherapy Medications Inpatient folic acid, 1 mg= 1 tab(s), Oral, qDay Heparin for IV 25,000 unit(s) [15.723 unit(s)/kg/hr] + Dextrose 5% Premix Diluent 250 mL Heparin HBW Bolus 5000 units/mL, 8750 unit(s)= 1.75 mL, 70 unit(s)/kg, IV Push, q6h, PRN Heparin HBW Bolus 5000 units/mL, 6360 unit(s)= 1.27 mL, 40 unit(s)/kg, IV Push, q6h, PRN Lopressor, 25 mg= 1 tab(s), Oral, BID melatonin, 5 mg= 1 tab(s), Oral, qHS, PRN Nicoderm C-Q 14 mg/24 hr transdermal film, extended release, 14 mg= 1 patch(es), Transdermal, q24h nicotine (Nicoderm Patch REMOVAL), 1 EA, Miscellaneous, q24h Percocet 325/5, 1 tab(s), Oral, q4h, PRN Percocet 325/5, 2 tab(s), Oral, q4h, PRN Rocephin, 2 gram(s)= 20 mL, IV Push (INT), qDay thiamine, 100 mg= 1 tab(s), Oral, qDay Tylenol, 650 mg= 2 tab(s), Oral, q4h, PRN Zofran, 4 mg= 2 mL, IV Push, q4h, PRN Home Miralax 255 gm bottle, Oral, qDay, PRN oxyCODONE 5 mg oral tablet ( IMMEDIATE release ), 5 mg= 1 tab(s), Oral, q8h, PRN senna 8.6 mg oral tablet, 17.2 mg= 2 tab(s), Oral, BID, PRN Allergies penicillin (Swelling) Social History Smoking Status - 11/07/2016 Current every day smoker Alcohol - Medium Risk, 11/07/2016 Use: Current. Type: Beer. Frequency: Daily. Previous treatment: Outpatient. Has alcohol use interfered with work or home life: No. Do you ever drink more than intended: Yes. Has anyone been hurt or at risk by your drinking: Yes. Ready to change: Yes., 03/07/2022 Employment/School Status: Employed., 12/16/2020 Home/Environment Domestic Concerns: None. Living situation: Home with assistance. 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 Safe place to go: Yes. Lives In: Single level home, 1st floor bedroom, 1st floor bathroom, 1st floor laundry., 08/14/2020 Nutrition/Health Caffeine intake amount: 1 can of pop once a week., 11/06/2020 Type of diet: Regular. Appetite Excellent. Eating Difficulties None., 08/14/2020 Substance Abuse - Denies Substance Abuse, 11/07/2016 Use: Current. Type: Marijuana. Frequency: 1-2 times per month. IV drug use; No. Ready to change: No. Concerns about substance abuse in household: No., 08/14/2020 Tobacco Nicotine Use: 10 or more cigarettes (1/2 pack or more)/day in last 30 days. Type: Cigarettes. Started at age: 13 Years. Ready to change: Yes., 08/07/2020 Family History Bladder cancer: Negative: Mother, Father, Sister, Brother, Daughter, Son and Grandparent. Crohn's disease: Sister. Diabetes: Father. HTN - Hypertension: Mother and Father. Heart attack: Father. Heart disease: Negative: Mother, Father, Sister, Brother, Daughter, Son and Grandparent. Hypertension: Mother and Father.Negative: Sister, Brother, Daughter, Son and Grandparent. Kidney disease: Negative: Mother, Father, Sister, Brother, Daughter, Son and Grandparent. Kidney stone: Mother and Sister.Negative: Father, Brother, Daughter, Son and Grandparent. Prostate cancer: Negative: Father, Brother and Son. Renal cancer: Negative: Mother, Father, Sister, Brother, Daughter, Son and Grandparent. Rheumatoid arthritis: Mother. Immunizations SARS-CoV-2 (COVID-19) mRNA-1273 vaccine: 0.25 unknown unit (04/15/21) SARS-CoV-2 (COVID-19) mRNA-1273 vaccine: 0.5 unknown unit (10/15/20) SARS-CoV-2 (COVID-19) mRNA-1273 vaccine: 0.5 unknown unit (09/17/20) Digitally Signed by RACHELL MELGAR MD on 08/03/2022 07:10 PM Digitally Signed by RACHELL MELGAR MD on 08/03/2022 07:43 PM [id number] Oncology Consult note Date of Service 08/03/2022 Reason for Consultation metastatic renal cancer This is a split/shared visit between Dr. Triana and myself History of Present Illness Patient is a 42-year-old male with past medical history of metastatic renal cell carcinoma, T11 vertebral body fracture, AKHIL. Patient presented to the hospital with shortness of breath and chest painon 08/01. CTA of the chest was done and showed large pulmonary embolism in the right distal main pulmonary artery, right middle and right lower lobe pulmonary arteries, evidence of heart strain. Vascul ar surgery was consulted for EKOS that was done on 08/02. Patient remains in SICU due to high oxygendemands, currently on high flow, critical care managing. Patient is known to the cancer center for management of metastatic renal cell carcinoma. Patient was diagnosed in 2020. He underwent left cytoreductive nephrectomy. 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 In October patient was started on nivolumab and ipi limumab. After 4 cycles ipilimumab was discontinued and patient was continued on nivolumab. Most recently he received cycle 24 on 07/07. He was due for cycle 25 on 08/04. Today patient is resting in bed. He reports he came into the hospital with worsening shortness of breath and chest pain over the past few days. Patient was found to have large PE with heart strain. Patient denied any worsening swelling, pain or redness in the legs. He does report he is feeling better since coming in the hospital. He is currently on high flow nasal cannula at 68% FiO2. He denies any previous history of blood clots. He does report his father had a blood clot and heart attack in his 60s. He denies any further family history of blood clots, strokes or heart attack or miscarriages. Patient denies any recent surgeries or travel. He does report he is not very active at home. Patient reports tobacco use for 29 years roughly 1 to 1/2 packs/day. Patient also reports alcohol use roughly 4 days a week. Will hold off on treatment tomorrow. Will order CT abd/pelvis to evaluate cancerstatus, last scan done in February. Lab Results Test Name Test Result Date/TimeWBC 17.6 10^3/mcL (High) 08/03/2022 04:41 EDT Hgb 14.4 G/dL 08/03/2022 04:41 EDT Platelet 195 10^3/mcL 08/03/2022 04:41 EDT Review of Systems 14 system review is negative except as charted in the HPI Physical Exam Vitals and Measurements T: 36.8 C (Oral) TMIN: 36.4 C (Oral) TMAX: 36.8 C (Oral) HR: 138(Monitored) RR: 20 BP: 134/95 SpO2:100% General Appearance: no acute distress Eyes: PERRLA Nose: External nose normal Ears: External ears normal Throat: Trachea midline Neck: no mass Lymph nodes: Not palpable Cardiac: RRR S1 and S2 no murmur Lungs: clear bilaterally Abdomen: soft non-tender BSx4 Neurological: A&Ox3 follows commands Skin: warm dry and intact Musculoskeletal: strength intact Psychiatric: appropriate mood and affect Weight Dosing Weight: 159 kg (08/01/22) Lab Results 08/03 04:41 WBC: 17.6 H Hgb: 14.4 Hct: 44.4 Platelet: 195 Neutrophil %: 83.3 H Glucose Level: 122 H Sodium Level: 141 Potassium Level: 5.6 H BUN: 26.0 H Creatinine Lvl (s): 1.23 08/02 17:21 Hgb: 15.7 Hct: 48.8 Platelet: 169 Protime: 13.8 PT International Ratio: 1.2 08/02 11:34 WBC: 18.6 H Hgb: 15.0 Hct: 46.4 Platelet: 167 Neutrophil %: 90.8 H Glucose Level: 183 H Sodium Level: 137 Potassium Level: 4.8 BUN: 26.0 H Creatinine Lvl (s): 1.55 H 08/01 22:38 WBC: 15.0 H Hgb: 15.7 Hct: 48.2 Platelet: 149 L Neutrophil %: 94.3 H Protime: 15.7 H PT International Ratio: 1.3 Glucose Level: 160 H Sodium Level: 136 Potassium Level: 4.5 BUN: 20.0 Creatinine Lvl (s): 1.37 Imaging Results and Diagnostics (08/03/2022 06:32 EDT XR Chest 1 View) IMPRESSION: Ill-defined hazy opacification in the right lower lung. Considerations include sequelae of pulmonary infarct as well as subsegmental atelectasis. Infectious/inflammatory etiologies are considered less likely especially given current clinical picture. [1] (08/01/2022 18:[address] Angiography Chest w/ Contrast) IMPRESSION: Large pulmonary embolism in the distal right main pulmonary artery, right middle and right lower lobar pulmonary arteries, with non opacification of the distal branches. Evidence of right heart strain. [2] Assessment/Plan Metastatic renal cell carcinoma, diagnosed in 2020, currently on nivolumab, C24 given on 07/07, C25 was due 08/04, will hold off on treatment while patient is in the hospital, will order CT abdomen/pelvis to evaluate cancer status, last scan was done in February PE, CTA of the chest showed large PE in the right distal main artery, right middle and right lower lobe pulmonary arteries with heart strain Vascular surgery following, EKOS done on 08/02 Patient currently on IV heparin, oral anticoagulation prior to discharge Patient currently on high flow nasal cannula, critical care managing Possible UTI, patient on ceftriaxone, urine culture pending Please see Dr. Triana's addendum for further recommendations Problem List/Past Medical History Ongoing Alcohol abuse Left renal mass. 9.6-cm. With perinephric fat invasion. With lytic bony lesion and pulmonary nodules concerning for mets. BS, 07/2020 - neg. CT brain, 07/2020 - neg. S/P Radical nephrectomy 08/14/20. Metastatic renal cell carcinoma. S/P Left cytoreductive nephrectomy 08/14/20. Final path - ccRCC withsarcomatoid features. No chronic diseases present T11 vertebral fracture Tobacco abuse Viral gastroenteritis Cigarette smoker Active Lung nodule, multiple Active Marijuana user Active Secondary malignant neoplasm of bone (disorder) Active Historical Renal cell carcinoma (disorder) Active Procedure/Surgical History Tooth extraction: 08/28/21 Nephrectomy, including partial ureterectomy, any open approach including rib resection; radical, with regional lymphadenectomy and/or vena caval thrombectomy: 08/14/20 Tonsillectomy Boost radiation therapy Chemotherapy Medications folic acid, 1 mg= 1 tab(s), Oral, qDay Heparin for IV 25,000 unit(s) [15.723 unit(s)/kg/hr] + Dextrose 5% Premix Diluent 250 mL Heparin HBW Bolus 5000 units/mL, 8750 unit(s)= 1.75 mL, 70 unit(s)/kg, IV Push, q6h, PRN Heparin HBW Bolus 5000 units/mL, 6360 unit(s)= 1.27 mL, 40 unit(s)/kg, IV Push, q6h, PRN melatonin, 5 mg= 1 tab(s), Oral, qHS, PRN Miralax 255 gm bottle, Oral, qDay, PRN Nicoderm C-Q 14 mg/24 hr transdermal film, extended release, 14 mg= 1 patch(es), Transdermal, q24h nicotine (Nicoderm Patch REMOVAL), 1 EA, Miscellaneous, q24h oxyCODONE 5 mg oral tablet ( IMMEDIATE release ), 5 mg= 1 tab(s), Oral, q8h, PRN Rocephin, 2 gram(s)= 20 mL, IV Push (INT), qDay senna 8.6 mg oral tablet, 17.2 mg= 2 tab(s), Oral, BID, PRN thiamine, 100 mg= 1 tab(s), Oral, qDay Allergies penicillin (Swelling) Family History Bladder cancer: Negative: Mother, Father, Sister, Brother, Daughter, Son and Grandparent. Crohn's disease: Sister. Diabetes: Father. HTN - Hypertension: Mother and Father. Heart attack: Father. Heart disease: Negative: Mother, Father, Sister, Brother, Daughter, Son and Grandparent. Hypertension: Mother and Father.Negative: Sister, Brother, Daughter, Son and Grandparent. Kidney disease: Negative: Mother, Father, Sister, Brother, Daughter, Son and Grandparent. Kidney stone: Mother and Sister.Negative: Father, Brother, Daughter, Son and Grandparent. Prostate cancer: Negative: Father, Brother and Son. Renal cancer: Negative: Mother, Father, Sister, Brother, Daughter, Son and Grandparent. Rheumatoid arthritis: Mother. Social History Smoking Status - 11/07/2016 Current every day smoker Alcohol - Medium Risk, 11/07/2016 Use: Current. Type: Beer. Frequency: Daily. Previous treatment: Outpatient. Has alcohol use interfered with work or home life: No. Do you ever drink more than intended: Yes. Has anyone been hurt or at risk by your drinking: Yes. Ready to change: Yes., 03/07/2022 Employment/School Status: Employed., 12/16/2020 Home/Environment Domestic Concerns: None. Living situation: Home with assistance. 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 Safe place to go: Yes. Lives In: Single level home, 1st floor bedroom, 1st floor bathroom, 1st floor laundry., 08/14/2020 Nutrition/Health Caffeine intake amount: 1 can of pop once a week., 11/06/2020 Type of diet: Regular. Appetite Excellent. Eating Difficulties None., 08/14/2020 Substance Abuse - Denies Substance Abuse, 11/07/2016 Use: Current. Type: Marijuana. Frequency: 1-2 times per month. IV drug use; No. Ready to change: No. Concerns about substance abuse in household: No., 08/14/2020 Tobacco Nicotine Use: 10 or more cigarettes (1/2 pack or more)/day in last 30 days. Type: Cigarettes. Started at age: 13 Years. Ready to change: Yes., 08/07/2020 [1] XR Chest 1 View; 08/03/2022 06:32 EDT [2] CT Angiography Chest w/ Contrast; RAY MARTE MD 08/01/2022 18:58 EDT Digitally Signed by TAMI VELASQUEZ on 08/03/2022 12:01 PM [id number] Note ORIGINAL Images acquired, not reported on this accession number. [id number] Note ORIGINAL Images acquired, not reported on this accession number.[facility] 08-02-2022 Vascular surgery Consult note Date of Service 08/02/2022 Reason for Consultation Pulmonary embolism with RV strain Referring Physician MICU History of Present Illness This is a pleasant 47-year-old gentleman that came in with worsening shortness of breath over the last couple days. Was found to have a large massive PE on the right side. He had evidence of RV strain. He is remaining fairly symptomatic with this on a heparin drip. Does have a history of metastaticrenal cell carcinoma. Does have a smoking history. Vascular surgery consult and discussed with do EKOS thrombolysis. Review of Systems All negative set for the HPI Physical Exam Vitals and Measurements T: 36.5 C (Oral) TMIN: 36.5 C (Oral) TMAX: 37.0 C (Oral) HR: 133(Monitored) RR: 27 BP: 156/123 SpO2: 97.6% HT: 172 cm WT: 159 kg BMI: 53.75 Weight Dosing Weight: 159 kg (08/01/22) Patient awake, alert No apparent distress Afebrile vital signs stable HEENT: Normocephalic atraumatic Pupils equal reactive Moist mucous membrane Neck supple Lungs coarse Heart tacky Abdomen soft, obese Palpable radial pulses Mild edema Lab Results 08/02 11:34 WBC: 18.6 H Hgb: 15.0 Hct: 46.4 Platelet: 167 Neutrophil %: 90.8 H Glucose Level: 183 H Sodium Level: 137 Potassium Level: 4.8 BUN: 26.0 H Creatinine Lvl (s): 1.55 H 08/01 22:38 WBC: 15.0 H Hgb: 15.7 Hct: 48.2 Platelet: 149 L Neutrophil %: 94.3 H Protime: 15.7 H PT International Ratio: 1.3 Glucose Level: 160 H Sodium Level: 136 Potassium Level: 4.5 BUN: 20.0 Creatinine Lvl (s): 1.37 EKG EC08/02/22: ATRIAL FLUTTER TACHYCARDIA Anteroseptal infarct, age indeterminate l Electronic Signature: ALBARO CORREIA MD 08/02/2022 13:34:40 Assessment/Plan Orders: alteplase 10 mg + Sodium Chloride 0.9% intravenous solution 240 mL, Start: 08/02/22 15:08:00 EDT, STAT, as directed by physician 1. Pulmonary embolism. We will plan for pulmonary EKOS to the right side Problem List/Past Medical History Ongoing Alcohol abuse Left renal mass. 9.6-cm. With perinephric fat invasion. With lytic bony lesion and pulmonary nodules concerning for mets. BS, 07/2020 - neg. CT brain, 07/2020 - neg. S/P Radical nephrectomy 08/14/20. Metastatic renal cell carcinoma. S/P Left cytoreductive nephrectomy 08/14/20. Final path - ccRCC withsarcomatoid features. No chronic diseases present T11 vertebral fracture Tobacco abuse Viral gastroenteritis Cigarette smoker Active Lung nodule, multiple Active Marijuana user Active Secondary malignant neoplasm of bone (disorder) Active Historical Renal cell carcinoma (disorder) Active Procedure/Surgical History Tooth extraction: 08/28/21 Nephrectomy, including partial ureterectomy, any open approach including rib resection; radical, with regional lymphadenectomy and/or vena caval thrombectomy: 08/14/20 Tonsillectomy Boost radiation therapy Chemotherapy Medications Inpatient alteplase 10 mg + Normal Saline 240 mL folic acid Heparin for IV 25,000 unit(s) [15.723 unit(s)/kg/hr] + Dextrose 5% Premix Diluent 250 mL Heparin HBW Bolus 5000 units/mL, 8750 unit(s)= 1.75 mL, 70 unit(s)/kg, IV Push, q6h, PRN Heparin HBW Bolus 5000 units/mL, 6360 unit(s)= 1.27 mL, 40 unit(s)/kg, IV Push, q6h, PRN melatonin, 5 mg= 1 tab(s), Oral, qHS, PRN Nicoderm C-Q 14 mg/24 hr transdermal film, extended release, 14 mg= 1 patch(es), Transdermal, q24h nicotine (Nicoderm Patch REMOVAL), 1 EA, Miscellaneous, q24h nicotine (Nicoderm Patch REMOVAL), 1 EA, Miscellaneous, Once thiamine, 100 mg= 1 mL, IV Push, qDay Home Miralax 255 gm bottle, Oral, qDay, PRN oxyCODONE 5 mg oral tablet ( IMMEDIATE release ), 5 mg= 1 tab(s), Oral, q8h, PRN senna 8.6 mg oral tablet, 17.2 mg= 2 tab(s), Oral, BID, PRN Allergies penicillin (Swelling) Social History Smoking Status - 11/07/2016 Current every day smoker Alcohol - Medium Risk, 11/07/2016 Use: Current. Type: Beer. Frequency: Daily. Previous treatment: Outpatient. Has alcohol use interfered with work or home life: No. Do you ever drink more than intended: Yes. Has anyone been hurt or at risk by your drinking: Yes. Ready to change: Yes., 03/07/2022 Employment/School Status: Employed., 12/16/2020 Home/Environment Domestic Concerns: None. Living situation: Home with assistance. 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 Safe place to go: Yes. Lives In: Single level home, 1st floor bedroom, 1st floor bathroom, 1st floor laundry., 08/14/2020 Nutrition/Health Caffeine intake amount: 1 can of pop once a week., 11/06/2020 Type of diet: Regular. Appetite Excellent. Eating Difficulties None., 08/14/2020 Substance Abuse - Denies Substance Abuse, 11/07/2016 Use: Current. Type: Marijuana. Frequency: 1-2 times per month. IV drug use; No. Ready to change: No. Concerns about substance abuse in household: No., 08/14/2020 Tobacco Nicotine Use: 10 or more cigarettes (1/2 pack or more)/day in last 30 days. Type: Cigarettes. Started at age: 13 Years. Ready to change: Yes., 08/07/2020 Family History Bladder cancer: Negative: Mother, Father, Sister, Brother, Daughter, Son and Grandparent. Crohn's disease: Sister. Diabetes: Father. HTN - Hypertension: Mother and Father. Heart attack: Father. Heart disease: Negative: Mother, Father, Sister, Brother, Daughter, Son and Grandparent. Hypertension: Mother and Father.Negative: Sister, Brother, Daughter, Son and Grandparent. Kidney disease: Negative: Mother, Father, Sister, Brother, Daughter, Son and Grandparent. Kidney stone: Mother and Sister.Negative: Father, Brother, Daughter, Son and Grandparent. Prostate cancer: Negative: Father, Brother and Son. Renal cancer: Negative: Mother, Father, Sister, Brother, Daughter, Son and Grandparent. Rheumatoid arthritis: Mother. Immunizations SARS-CoV-2 (COVID-19) mRNA-1273 vaccine: 0.25 unknown unit (04/15/21) SARS-CoV-2 (COVID-19) mRNA-1273 vaccine: 0.5 unknown unit (10/15/20) SARS-CoV-2 (COVID-19) mRNA-1273 vaccine: 0.5 unknown unit (09/17/20) Digitally Signed by PROSPER CORDON MD on 08/02/2022 06:16 PM [id number] History and physical note Date of Service 08/02/22 Chief Complaint Shortness of breath and chest pain History of Present Illness Patient is a 42-year-old gentleman who presented to outside ED with chief complaint of shortness ofbreath as well as chest pain. He has a past medical history of metastatic renal cell carcinoma (status post left nephrectomy 08/2020, radiation, ipilimumab, nivolumab), T11 vertebral body fracture dueto lytic bone lesion, likely AKHIL pending sleep study. Patient states that for the past 3 days he had a right-sided chest pain that was described as sharpin nature, with radiation down to his abdomen. Also had associated shortness of breath with the symptoms. Denies any lightheaded dizziness. Has had nausea with poor oral intake. His symptoms have waxed and waned, but have been persistent. States he was getting severely short of breath with exertion, and decided to present to outside ED for the symptoms. Outside ED, found to have elevated D-dimer and CTA was subsequently performed. CTA showed right main pulmonary artery clot with concern for right heart strain. Patient subsequently started on heparin by weight, and transferred to [facility] for further evaluation management. Review of Systems General-patient denies fevers or chills Head-denies lightheadedness or dizziness Eyes-denies blurry vision or double vision CV-chest pain, no palpitations Respiratory-shortness of breath improved, no wheezes GI-denies abdominal pain, nausea or vomiting MSK-denies joint pain Neuro-numbness and tingling bilateral feet Physical Exam Vitals and Measurements T: 37.0 C (Oral) TMIN: 36.9 C (Oral) TMAX: 37.0 C (Oral) HR: 133(Monitored) RR: 25 BP: 161/98 SpO2:87% HT: 172 cm WT: 159 kg BMI: 53.75 Weight Dosing Weight: 159 kg (08/01/22) General-alert and oriented, no acute distress Head-normocephalic, atraumatic Eyes-no scleral icterus, EOMI CV-sinus tachycardia on telemetry, no murmurs Respiratory-diminished breath sounds bilaterally, no wheezes or crackles Abdomen-distended but soft, nontender to palpation MSK-no gross joint abnormalities Extremities-1+ nonpitting edema equal bilaterally Lab Results 08/01 22:38 WBC: 15.0 H Hgb: 15.7 Hct: 48.2 Platelet: 149 L Neutrophil %: 94.3 H Protime: 15.7 H PT International Ratio: 1.3 Glucose Level: 160 H Sodium Level: 136 Potassium Level: 4.5 BUN: 20.0 Creatinine Lvl (s): 1.37 Assessment/Plan 1. Pulmonary embolism right main pulmonary artery 2. Leukocytosis concern for community-acquired pneumonia 3. Alcohol use 4. Obesity 5. Tobacco use 6. 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 Found to have pulmonary embolism, significant clot burden in the right main pulmonary artery. Hemodynamically stable, was saturating well on room air while awake. -Continue with heparin by weight, PE dosing -Echocardiogram -We will hold off on vascular surgery consult for now -Patient does have significant sinus tachycardia right now, likely sequela of pulmonary embolism versus use of beta agonist breathing treatment at outside ED Patient also has a leukocytosis on CBC. Noted to be diaphoretic during exam. Urinalysis is pending at this time, blood cultures have been drawn. Review of CT of chest shows some groundglass and patchy opacity in the right lung. Possibly due to PE, but cannot rule out infection. -Empirically cover him with azithromycin and ceftriaxone -Urine atypicals -Titrate antibiotics accordingly Patient does have a significant alcohol use history. States he used to drink about 12 beers per day, no significant history of alcohol withdrawal. Does continue to drink about 4 times per week, 8 beers per session. -Start thiamine and folate -Monitor for signs of withdrawal Patient did become hypoxic overnight, likely has AKHIL based on body habitus. Patient states he has been told this before as well. We will place him on CPAP overnight. DVT prophylaxis with heparin by weight Full code Problem List/Past Medical History Ongoing Alcohol abuse Left renal mass. 9.6-cm. With perinephric fat invasion. With lytic bony lesion and pulmonary nodules concerning for mets. BS, 07/2020 - neg. CT brain, 07/2020 - neg. S/P Radical nephrectomy 08/14/20. Metastatic renal cell carcinoma. S/P Left cytoreductive nephrectomy 08/14/20. Final path - ccRCC withsarcomatoid features. No chronic diseases present T11 vertebral fracture Tobacco abuse Viral gastroenteritis Cigarette smoker Active Lung nodule, multiple Active Marijuana user Active Secondary malignant neoplasm of bone (disorder) Active Historical Renal cell carcinoma (disorder) Active Procedure/Surgical History Tooth extraction: 08/28/21 Nephrectomy, including partial ureterectomy, any open approach including rib resection; radical, with regional lymphadenectomy and/or vena caval thrombectomy: 08/14/20 Tonsillectomy Boost radiation therapy Chemotherapy Medications Home Medications (3) Active Miralax 255 gm bottle , PRN, Oral, qDay oxyCODONE 5 mg oral tablet ( IMMEDIATE release ) 5 mg = 1 tab(s), PRN, Oral, q8h senna 8.6 mg oral tablet 17.2 mg = 2 tab(s), PRN, Oral, BID Allergies penicillin (Swelling) Social History Smokes 1 pack/day for the last 25 years Alcohol use, almost daily, 8 beers per day Denies recreational drugs 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 Crohn's disease: Sister. Diabetes: Father. HTN - Hypertension: Mother and Father. Heart attack: Father. Heart disease: Negative: Mother, Father, Sister, Brother, Daughter, Son and Grandparent. Hypertension: Mother and Father.Negative: Sister, Brother, Daughter, Son and Grandparent. Kidney disease: Negative: Mother, Father, Sister, Brother, Daughter, Son and Grandparent. Kidney stone: Mother and Sister.Negative: Father, Brother, Daughter, Son and Grandparent. Prostate cancer: Negative: Father, Brother and Son. Renal cancer: Negative: Mother, Father, Sister, Brother, Daughter, Son and Grandparent. Rheumatoid arthritis: Mother. Immunizations SARS-CoV-2 (COVID-19) mRNA-1273 vaccine: 0.25 unknown unit (04/15/21) SARS-CoV-2 (COVID-19) mRNA-1273 vaccine: 0.5 unknown unit (10/15/20) SARS-CoV-2 (COVID-19) mRNA-1273 vaccine: 0.5 unknown unit (09/17/20) Code Status No qualifying data available. Digitally Signed by FE RAMIREZ DO on 08/02/2022 08:17 AM [id number] Evaluation + Plan noteExtracted from: Title:History and Physical Author:FE RAMIREZ Date:08/02/22 1. Pulmonary embolism right main pulmonary artery 2. Leukocytosis concern for community-acquired pneumonia 3. Alcohol use 4. Obesity 5. Tobacco use 6. 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 Found to have pulmonary embolism, significant clot burden in the right main pulmonary artery. Hemodynamically stable, was saturating well on room air while awake. -Continue with heparin by weight, PE dosing -Echocardiogram -We will hold off on vascular surgery consult for now -Patient does have significant sinus tachycardia right now, likely sequela of pulmonary embolism versus use of beta agonist breathing treatment at outside ED Patient also has a leukocytosis on CBC. Noted to be diaphoretic during exam. Urinalysis is pending at this time, blood cultures have been drawn. Review of CT of chest shows some groundglass and patchy opacity in the right lung. Possibly due to PE, but cannot rule out infection. -Empirically cover him with azithromycin and ceftriaxone -Urine atypicals -Titrate antibiotics accordingly Patient does have a significant alcohol use history. States he used to drink about 12 beers per day, no significant history of alcohol withdrawal. Does continue to drink about 4 times per week, 8 beers per session. -Start thiamine and folate -Monitor for signs of withdrawal Patient did become hypoxic overnight, likely has AKHIL based on body habitus. Patient states he has been told this before as well. We will place him on CPAP overnight. DVT prophylaxis with heparin by weight Full code Addendum by PABLO JUAREZ MD on August 02, 2022 14:34:13 EDT For full details please refer to the H&P or transfer note as written/dictated by the biomedical photographer which I have reviewed. In addition to this I'd like to add the following: Today I rounded on the patient with the medical residents, nursing staff, rounding critical care nurse, and the entire critical care team available. I've reviewed the resident's detailed handwritten notes as well as any dictations performed. In addition to this I would like to add the followin-year-old male with metastatic renal cell cancer admitted with large right-sided PE with pulmonary infarct tachycardia and increased dyspnea with hypoxemia. Patient started on a heparin infusion states he is feeling a bit better. However with the degree of clot burden so the patient is at risk and would benefit from EKOS. Vascular surgery was consulted and they are planning to take the patient today for the procedure The patient has likely obstructive sleep apnea and is having episodes of desaturations here. I am going to add high flow nasal cannula to his regimen to function as CPAP to help stabilize his oxygen saturations. In the meantime we will also order a CPAP with a nasal mask this evening. The patient is planning on getting a sleep study as an outpatient after discharge. Patient will likely transfer to the surgical ICU after the EKOS procedure. We will continue to follow there. Pablo Juarez M.D., [facility] Future Appointments Appointment Date:08/11/2022 09:45:00 AM Scheduled Provider: Location:INF Appointment Type:INF Labwork Appointment Date:08/11/2022 10:30:00 AM Scheduled Provider:JEANNINE MENDEZ Location:[facility] Appointment Type:[facility] OV Follow Up w/Active Treatment Appointment Date:08/11/2022 11:00:00 AM Scheduled Provider: Location:INF Appointment Type:INF Chemo: Infusion 120 min (2 hours) Appointment Date:08/24/2022 08:00:00 PM Scheduled Provider: Location:[facility] Appointment Type:[facility] PSG (Polysomnograph) Appointment Date:09/01/2022 11:00:00 AM Scheduled Provider:LIAN FUNG MD Location:[facility] Pall[facility] Appointment Type:[facility] OV Follow Up Future Scheduled Tests Laboratory* Cortisol Level 08/04/22 * Lactate Dehydrogenase 08/04/22 * Thyroid Stimulating Hormone 08/04/22 * Free T4 08/04/22 * Complete Blood Count 08/04/22 * Free T3 08/04/22 * Complete Metabolic Panel 08/04/22 Radiology* CT Thorax w/ Contrast 08/18/21 * XR Shoulder Minimum 2 Views Right 12/08/21 * CT Abdomen and Pelvis w/ contrast 08/18/21 [facility] 06-20-[facility] Note ORIGINAL EXAMINATION: ONE XRAY VIEW OF THE CHEST 08/02/2022 6:21 am COMPARISON: CTA chest 08/01/2022, CT thorax 09/15/2021. HISTORY: ORDERING SYSTEM PROVIDED HISTORY: Reason for Exam: concern for pneumonia FINDINGS: Body habitus obscures some detail. Right IJV tunneled catheter port in stable position. Stable cardiomediastinal silhouette. Streaky opacifications predominant the right infrahilar region. No pleural effusion or pneumothorax. No acute osseous abnormality. IMPRESSION: Right infrahilar hazy opacifications likely on the basis of subsegmental atelectasis. A developing infectious/inflammatory etiology cannot be ruled out however. I have personally reviewed the images of this examination and agree with the resident's findings and interpretation. Interpreted by: Janice Mitchell MD Preliminary Report By: Trenton Cannon Electronically signed By Janice Mitchell MD Dictated Date: 08/02/2022 6:38:40 AM Prelim Date: 08/02/2022 6:44:19 AM Sign Date: 08/02/2022 8:02:35 AM Ordering Provider: FE [facility]06-20-2023 Note ORIGINAL EXAMINATION: ONE XRAY VIEW OF THE CHEST 08/02/2022 6:21 am COMPARISON: CTA chest 08/01/2022, CT thorax 09/15/2021. HISTORY: ORDERING SYSTEM PROVIDED HISTORY: Reason for Exam: concern for pneumonia FINDINGS: Body habitus obscures some detail. Right IJV tunneled catheter port in stable position. Stable cardiomediastinal silhouette. Streaky opacifications predominant the right infrahilar region. No pleural effusion or pneumothorax. No acute osseous abnormality. IMPRESSION: Right infrahilar hazy opacifications likely on the basis of subsegmental atelectasis. A developing infectious/inflammatory etiology cannot be ruled out however. I have personally reviewed the images of this examination and agree with the resident's findings and interpretation. Interpreted by: Janice Mitchell MD Preliminary Report By: Trenton Cannon Electronically signed By Janice Mitchell MD Dictated Date: 08/02/2022 6:38:40 AM Prelim Date: 08/02/2022 6:44:19 AM Sign Date: 08/02/2022 8:02:35 AM Ordering Provider: [facility] [place]06[facility] Nurse Progress note Pt states he wants to walk to the bathroom and not wear his cpap and oxygen. I educated the patienton importance of bedrest due to PE and R heart strain. Patient stated " this is ridiculousness, my feet are numb". vehicle trimmer and Dr. Ramirez to bedside. Again, patient states "what? this could kill me? yeah.. right". Interventions of repositioning, medication, or elevation were discussed with patient,patient declined. Patient then stated "piss off". Pt was left with his call light in hand, bed alarm on and lowest position. Digitally Signed by Brandy Rodrigues RN on 08/02/2022 02:42 AM [id number] History and physical note Date of Service 08/02/22 Chief Complaint Shortness of breath and chest pain History of Present Illness Patient is a 42-year-old gentleman who presented to outside ED with chief complaint of shortness ofbreath as well as chest pain. He has a past medical history of metastatic renal cell carcinoma (status post left nephrectomy 08/2020, radiation, ipilimumab, nivolumab), T11 vertebral body fracture dueto lytic bone lesion, likely AKHIL pending sleep study. Patient states that for the past 3 days he had a right-sided chest pain that was described as sharpin nature, with radiation down to his abdomen. Also had associated shortness of breath with the symptoms. Denies any lightheaded dizziness. Has had nausea with poor oral intake. His symptoms have waxed and waned, but have been persistent. States he was getting severely short of breath with exertion, and decided to present to outside ED for the symptoms. Outside ED, found to have elevated D-dimer and CTA was subsequently performed. CTA showed right main pulmonary artery clot with concern for right heart strain. Patient subsequently started on heparin by weight, and transferred to [facility] for further evaluation management. Review of Systems General-patient denies fevers or chills Head-denies lightheadedness or dizziness Eyes-denies blurry vision or double vision CV-chest pain, no palpitations Respiratory-shortness of breath improved, no wheezes GI-denies abdominal pain, nausea or vomiting MSK-denies joint pain Neuro-numbness and tingling bilateral feet Physical Exam Vitals and Measurements T: 37.0 C (Oral) TMIN: 36.9 C (Oral) TMAX: 37.0 C (Oral) HR: 133(Monitored) RR: 25 BP: 161/98 SpO2:87% HT: 172 cm WT: 159 kg BMI: 53.75 Weight Dosing Weight: 159 kg (08/01/22) General-alert and oriented, no acute distress Head-normocephalic, atraumatic Eyes-no scleral icterus, EOMI CV-sinus tachycardia on telemetry, no murmurs Respiratory-diminished breath sounds bilaterally, no wheezes or crackles Abdomen-distended but soft, nontender to palpation MSK-no gross joint abnormalities Extremities-1+ nonpitting edema equal bilaterally Lab Results 08/01 22:38 WBC: 15.0 H Hgb: 15.7 Hct: 48.2 Platelet: 149 L Neutrophil %: 94.3 H Protime: 15.7 H PT International Ratio: 1.3 Glucose Level: 160 H Sodium Level: 136 Potassium Level: 4.5 BUN: 20.0 Creatinine Lvl (s): 1.37 Assessment/Plan 1. Pulmonary embolism right main pulmonary artery 2. Leukocytosis concern for community-acquired pneumonia 3. Alcohol use 4. Obesity 5. Tobacco use 6. 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 Found to have pulmonary embolism, significant clot burden in the right main pulmonary artery. Hemodynamically stable, was saturating well on room air while awake. -Continue with heparin by weight, PE dosing -Echocardiogram -We will hold off on vascular surgery consult for now -Patient does have significant sinus tachycardia right now, likely sequela of pulmonary embolism versus use of beta agonist breathing treatment at outside ED Patient also has a leukocytosis on CBC. Noted to be diaphoretic during exam. Urinalysis is pending at this time, blood cultures have been drawn. Review of CT of chest shows some groundglass and patchy opacity in the right lung. Possibly due to PE, but cannot rule out infection. -Empirically cover him with azithromycin and ceftriaxone -Urine atypicals -Titrate antibiotics accordingly Patient does have a significant alcohol use history. States he used to drink about 12 beers per day, no significant history of alcohol withdrawal. Does continue to drink about 4 times per week, 8 beers per session. -Start thiamine and folate -Monitor for signs of withdrawal Patient did become hypoxic overnight, likely has AKHIL based on body habitus. Patient states he has been told this before as well. We will place him on CPAP overnight. DVT prophylaxis with heparin by weight Full code Problem List/Past Medical History Ongoing Alcohol abuse Left renal mass. 9.6-cm. With perinephric fat invasion. With lytic bony lesion and pulmonary nodules concerning for mets. BS, 07/2020 - neg. CT brain, 07/2020 - neg. S/P Radical nephrectomy 08/14/20. Metastatic renal cell carcinoma. S/P Left cytoreductive nephrectomy 08/14/20. Final path - ccRCC withsarcomatoid features. No chronic diseases present T11 vertebral fracture Tobacco abuse Viral gastroenteritis Cigarette smoker Active Lung nodule, multiple Active Marijuana user Active Secondary malignant neoplasm of bone (disorder) Active Historical Renal cell carcinoma (disorder) Active Procedure/Surgical History Tooth extraction: 08/28/21 Nephrectomy, including partial ureterectomy, any open approach including rib resection; radical, with regional lymphadenectomy and/or vena caval thrombectomy: 08/14/20 Tonsillectomy Boost radiation therapy Chemotherapy Medications Home Medications (3) Active Miralax 255 gm bottle , PRN, Oral, qDay oxyCODONE 5 mg oral tablet ( IMMEDIATE release ) 5 mg = 1 tab(s), PRN, Oral, q8h senna 8.6 mg oral tablet 17.2 mg = 2 tab(s), PRN, Oral, BID Allergies penicillin (Swelling) Social History Smokes 1 pack/day for the last 25 years Alcohol use, almost daily, 8 beers per day Denies recreational drugs 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 Crohn's disease: Sister. Diabetes: Father. HTN - Hypertension: Mother and Father. Heart attack: Father. Heart disease: Negative: Mother, Father, Sister, Brother, Daughter, Son and Grandparent. Hypertension: Mother and Father.Negative: Sister, Brother, Daughter, Son and Grandparent. Kidney disease: Negative: Mother, Father, Sister, Brother, Daughter, Son and Grandparent. Kidney stone: Mother and Sister.Negative: Father, Brother, Daughter, Son and Grandparent. Prostate cancer: Negative: Father, Brother and Son. Renal cancer: Negative: Mother, Father, Sister, Brother, Daughter, Son and Grandparent. Rheumatoid arthritis: Mother. Immunizations SARS-CoV-2 (COVID-19) mRNA-1273 vaccine: 0.25 unknown unit (04/15/21) SARS-CoV-2 (COVID-19) mRNA-1273 vaccine: 0.5 unknown unit (10/15/20) SARS-CoV-2 (COVID-19) mRNA-1273 vaccine: 0.5 unknown unit (09/17/20) Code Status No qualifying data available. Digitally Signed by FE RAMIREZ DO on 08/02/2022 08:17 AM [id number] Note ORIGINAL EXAMINATION: CTA OF THE CHEST 08/01/2022 7:03 pm TECHNIQUE: CTA of the chest was performed after the administration of intravenous contrast. Multiplanar reformatted images are provided for review. MIP images are provided for review. Automated exposure control, iterative reconstruction, and/or weight based adjustment of the mA/kV was utilized to reduce the radiation dose to as low as reasonably achievable. COMPARISON: CT chest March 08, 2022 HISTORY: ORDERING SYSTEM PROVIDED HISTORY: Reason for Exam: difficulty breathing; suspect PE FINDINGS: Pulmonary Arteries: Pulmonary arteries are adequately opacified for evaluation. Large pulmonary embolus in the distal right main pulmonary artery, right middle and right lower lobar pulmonary arteries with non opacification of the distal branches non-opacified. Mediastinum: Right ventricle is larger than the left ventricle and there is straightening of the interventricular septum. Reflux of contrast into the IVC. Catheter terminates in the right atrium. Relative paucity of contrast in the right atrium compared to the right ventricle favoring contrast mixing over thrombus. Mild enlarged mediastinal lymph nodes. Lungs/pleura: Areas of peripheral ground-glass and patchy opacity is likely related to the right-sided pulmonary embolism. No pleural effusion or pneumothorax. Upper Abdomen: Limited images of the upper abdomen are unremarkable. Soft Tissues/Bones: No acute bone or soft tissue abnormality. Unchanged appearance to compression deformity with sclerosis and lucency of T11 vertebral body. IMPRESSION: Large pulmonary embolism in the distal right main pulmonary artery, right middle and right lower lobar pulmonary arteries, with non opacification of the distal branches. Evidence of right heart strain. Communicated results to Dr. Daysi Torres at 7:14 p.m. on 08/01/2022. RECOMMENDATIONS: Unavailable Interpreted by: Ray Marte Preliminary Report By: Ray Marte Electronically signed By Ray Marte Dictated Date: 08/01/2022 7:10:11 PM Prelim Date: 08/01/2022 7:17:18 PM Sign Date: 08/01/2022 7:17:18 PM Ordering Provider: DAYSI TORRES [facility]06-19-2023 Note ORIGINAL EXAMINATION: CTA OF THE CHEST 08/01/2022 7:03 pm TECHNIQUE: CTA of the chest was performed after the administration of intravenous contrast. Multiplanar reformatted images are provided for review. MIP images are provided for review. Automated exposure control, iterative reconstruction, and/or weight based adjustment of the mA/kV was utilized to reduce the radiation dose to as low as reasonably achievable. COMPARISON: CT chest March 08, 2022 HISTORY: ORDERING SYSTEM PROVIDED HISTORY: Reason for Exam: difficulty breathing; suspect PE FINDINGS: Pulmonary Arteries: Pulmonary arteries are adequately opacified for evaluation. Large pulmonary embolus in the distal right main pulmonary artery, right middle and right lower lobar pulmonary arteries with non opacification of the distal branches non-opacified. Mediastinum: Right ventricle is larger than the left ventricle and there is straightening of the interventricular septum. Reflux of contrast into the IVC. Catheter terminates in the right atrium. Relative paucity of contrast in the right atrium compared to the right ventricle favoring contrast mixing over thrombus. Mild enlarged mediastinal lymph nodes. Lungs/pleura: Areas of peripheral ground-glass and patchy opacity is likely related to the right-sided pulmonary embolism. No pleural effusion or pneumothorax. Upper Abdomen: Limited images of the upper abdomen are unremarkable. Soft Tissues/Bones: No acute bone or soft tissue abnormality. Unchanged appearance to compression deformity with sclerosis and lucency of T11 vertebral body. IMPRESSION: Large pulmonary embolism in the distal right main pulmonary artery, right middle and right lower lobar pulmonary arteries, with non opacification of the distal branches. Evidence of right heart strain. Communicated results to Dr. Daysi Torres at 7:14 p.m. on 08/01/2022. RECOMMENDATIONS: Unavailable Interpreted by: Ray Marte Preliminary Report By: Ray Marte Electronically signed By Ray Marte Dictated Date: 08/01/2022 7:10:11 PM Prelim Date: 08/01/2022 7:17:18 PM Sign Date: 08/01/2022 7:17:18 PM Ordering Provider: 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 S/P Left cytoreductive nephrectomy 08/14/20. Final path - ccRCC withsarcomatoid features. 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 Tests Performed .Auto Differential .Estimated Glomerular Filtration Rate .Neutro Absolute CBC CMP Cortisol Level Free T3 Free T4 LDH TSH Your Care Team Attending Physician - BHAVIK TRIANA MD Primary Care Physician - PROSPER MANJARREZ DO Vitals Temperature (Oral) 36.5 C Heart Rate 77 Blood Pressure 138/67 Height 172.7 cm Weight 166.7 kg BMI 55.89 What to do next Instructions From Your Doctor You have received the following therapy today: Chemotherapy/Immunotherapy Call your physician if any of the following problems occur: Nausea/Vomiting Mouth Sores Diarrhea Fever Prolonged bleeding or easy bruising Pain or discomfort at the injection site Scheduled Follow-Up Appointments Appointment Type When With Where Contact InformationINF Labwork 07/07/2022 08:15 AM EDT Infusion Therapy HEM ONC OV Follow Up w/Active Treatment 07/07/2022 09:00 AM EDT BHAVIK TRIANA MD Hematology and Oncology INF Chemo: Infusion 120 min (2 hours) 07/07/2022 09:30 AM EDT Infusion Therapy PALL OV Follow Up 07/07/2022 11:00 AM EDT LIAN FUNG MD Palliative Care Medications What How Much When Why Instructions Unchanged oxyCODONE (oxyCODONE 5 mg oral tablet ( IMMEDIATE release )) 1 tab(s) by mouth Every 8 hours as needed for as needed for pain Renal cancer Unchanged polyethylene glycol 3350 (Miralax 255 gm bottle) by mouth Once a day as needed for Congestion Unchanged senna (senna 8.6 mg oral tablet) 2 tab(s) by mouth Two (2) times a day as needed for as needed for constipation Test Results .Auto Differential (06/09/2022) Neutrophil % - 62.7 % Lymphocyte % - 20.5 % Monocyte % - 7.6 % Eosinophil % - 8.2 % Basophil % - 1.0 % Lymphocyte, Absolute - 1.7 10^3/mcL Monocyte, Absolute - 0.6 10^3/mcL Eosinophil, Absolute - 0.710^3/mcL Basophil, Absolute - 0.1 10^3/mcL .Estimated Glomerular Filtration Rate (06/09/2022) GFR Non- - >60 ml/min/1.73sqm GFR - >60 ml/min/1.73sqm .Neutro Absolute (06/09/2022) Neutrophil, Absolute - 5.2 10^3/mcL CBC (06/09/2022) WBC - 8.3 10^3/mcL RBC - 5.03 10^6/mcL Hgb - 16.5 G/dL Hct - 49.5 % MCV - 98.4 fL MCH - 32.7 pg MCHC - 33.3 G/dL RDW - 14.0 % Platelet - 148 10^3/mcL MPV - 7.9 fL CMP (06/09/2022) Glucose Level - 120 mg/dL Sodium Level - 141 mEq/L Potassium Level - 4.6 mEq/L Chloride - 105 mEq/LCO2 - 33 mEq/L Electrolyte Balance - 3.0 mEq/L BUN - 13.0 mg/dL Creatinine Lvl (s) - 1.11 mg/dL BUN/Creatinine Ratio - 11.7 ratio Calcium Lvl - 8.8 mg/dL Total Protein - 6.5 G/dL Albumin Level - 3.0 G/dL Globulin - 3.5 G/dL A/G Ratio - 0.9 ratio Bili Total - 0.40 mg/dL Alk Phos - 81 U/L AST/SGOT - 17 U/L ALT/SGPT - 26 U/L Cortisol Level (06/09/2022) Cortisol Level - 15.3 mcg/dL Free T3 (06/09/2022) Free T3 - 3.73 pg/mL Free T4 (06/09/2022) Free T4 - 1.00 ng/dL LDH (06/09/2022) LDH - 350 U/L TSH (06/09/2022) TSH - 1.831 mIU/mL Allergies penicillin (Swelling) Additional Information VACCINATE! IT SAVES LIVES! Members of the community who have not yet received the COVID-19 vaccine and would like to receive it can visit one of [facility] vaccine clinics. There are many vaccine clinic locations within the [facility]. For locations and available times, please visit [email or web address] It is important to note that some COVID mobile vaccine clinics are held outdoors and may be canceled in rainy or stormy conditions. To learn more about pediatric vaccinations (ages 5-11), we invite you to visit the [facility] webpage. https://www.[email or web address].org/pages/[email or web address]-Byayeqrukva-Fotsdnzfpu-Vesgy-[email or web address] stions.htmlTo learn more about the COVID-19 vaccine, we invite you to visit the CDC website for a list of frequently asked questions. https://www.cdc.gov/coronavirus/2019-ncov/vaccines/faq.html [facility] [employer] Patient Portal Access Instructions: Stay connected with your healthcare team and access your personal medical information anytime with the [facility] Patient Portal.If you would like a full copy of your medical records, please contact the [facility] Medical Records Department, Monday through Monday between 8a.m. and 4:30p.m. Please follow the directions below to access the portal: 1.Access the email account you provided upon registration [facility] the [facility].2.Look for an invitation email from [facility].3.Open the email and access the invitation link: Accept Invitation to [facility]4.Fill in the required delaney to create your account. Sign into [email or web address] with your username and password that you created in the above steps to stay up to date. You can then view a summary of results, a summary of your visits, and the ability to download your summaries to your computer or send the information securely to a physician. Remember that your healthcare information is confidential, so carefully consider who you will allow to register on the [facility] Patient Portal for access to your information. You can also access the [facility] Patient Portal on the [employer] julia. Simply click on "Health Records" under "HealthData" and then click on the [employer] logo. HOW TO SAFELY DISPOSE OF PRESCRIPTION MEDICATIONS Please use one of the following methods to safely dispose of your unused medications. 1.Use a drug disposal kit: the drug disposal pouch allows you to safely discard your old and unuseddrugs. Ask your nurse to give you one when you are discharged.2.Visit a local take-back location: Many local pharmacies and police departments have programs that collect old and unwanted prescriptiondrugs. Call your local pharmacy or go to http://Huan Xiong.Oddslife/7A6Xz9y to find one close to you.3.Make use of household items: Use cat litter or old coffee grounds to dispose medications if other options arenot available. Mix your drugs with these household products, seal them in an airtight container andthrow it into the garbage. Call [facility]: [phone] to be sure your drugs can be disposed of in this way. Some medicines may require a different approach.4.Never flush your medications down the toilet. IF YOU HAVE BEEN PRESCRIBED AN OPIOID FOR PAIN If you have been prescribed an opioid (such as hydrocodone, oxycodone or morphine), it is critical to understand the possible side effects and risks of opioid pain medications. Even when taken as directed, opioids can have several side effects including: Tolerance, meaning you might need to take more of a medication for the same pain relief. Nausea, vomiting and/or constipation. Sleepiness, dizziness, dry mouth, confusion, depression or itching. Physical dependence, meaning you have withdrawal symptoms when a medication is stopped, can develop within a few days. KNOW YOUR RESPONSIBILITIES It is important to know exactly how much and how often to take the opioid pain medications you are prescribed. Never take opioids in higher amounts or more often than prescribed. Do not combine opioids with alcohol or other drugs that cause drowsiness, such as benzodiazepines, also known as benzos, including diazepam and alprazolam, muscle relaxants or sleep aids. Never sell or share prescription opioids. This is illegal. Store opioids in a secure place and out of reach of others (including children, family, friends and visitors). The last page of this document has been signed and retained as a CHART COPY. Signatures Patient Education Materials Medication Leaflets My discharge plan and instructions have been reviewed and explained to me and IJESSICA DAVID D understand my current condition and have read and understand these discharge instructions. I have received a written copy of the plan/instructions. If I have questions, I am aware that I should contact my doctor. 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 S/P Left cytoreductive nephrectomy 08/14/20. Final path - ccRCC withsarcomatoid features. Other care home (current) drug therapy Tests Performed .Auto Differential .Estimated Glomerular Filtration Rate .Neutro Absolute CBC CMP Cortisol Level Free T3 Free T4 LDH TSH Your Care Team Attending Physician - BHAVIK TRIANA MD Primary Care Physician - PROSPER MANJARREZ DO Vitals Temperature (Oral) 36.6 C Heart Rate 84 Respiratory Rate 18 Blood Pressure 146/91 Height 172.7 cm Weight 167.2 kg BMI 56.06 What to do next Instructions From Your Doctor You have received the following therapy today: Chemotherapy/Immunotherapy Call your physician if any of the following problems occur: Nausea/Vomiting Mouth Sores Diarrhea Fever Prolonged bleeding or easy bruising Pain or discomfort at the injection site Scheduled Follow-Up Appointments Appointment Type When With Where Contact InformationHEM ONC OV Follow Up w/Active Treatment 06/09/2022 10:00 AM EDT BHAVIK TRIANA MD [facility] Medications What How Much When Why Instructions Unchanged oxyCODONE (oxyCODONE 5 mg oral tablet ( IMMEDIATE release )) 1 tab(s) by mouth Every 8 hours as needed for as needed for pain Renal cancer Unchanged polyethylene glycol 3350 (Miralax 255 gm bottle) by mouth Once a day as needed for Congestion Unchanged senna (senna 8.6 mg oral tablet) 2 tab(s) by mouth Two (2) times a day as needed for as needed for constipation Test Results .Auto Differential (05/12/2022) Neutrophil % - 69.3 % Lymphocyte % - 19.3 % Monocyte % - 4.8 % Eosinophil % - 6.0 % Basophil % - 0.6 % Lymphocyte, Absolute - 1.5 10^3/mcL Monocyte, Absolute - 0.4 10^3/mcL Eosinophil, Absolute - 0.510^3/mcL Basophil, Absolute - 0.0 10^3/mcL .Estimated Glomerular Filtration Rate (05/12/2022) GFR Non- - >60 ml/min/1.73sqm GFR - >60 ml/min/1.73sqm .Neutro Absolute (05/12/2022) Neutrophil, Absolute - 5.5 10^3/mcL CBC (05/12/2022) WBC - 8.0 10^3/mcL RBC - 5.07 10^6/mcL Hgb - 16.5 G/dL Hct - 50.6 % MCV - 99.7 fL MCH - 32.5 pg MCHC - 32.6 G/dL RDW - 14.1 % Platelet - 146 10^3/mcL MPV - 7.4 fL CMP (05/12/2022) Glucose Level - 129 mg/dL Sodium Level - 140 mEq/L Potassium Level - 4.2 mEq/L Chloride - 107 mEq/LCO2 - 28 mEq/L Electrolyte Balance - 5.0 mEq/L BUN - 11.0 mg/dL Creatinine Lvl (s) - 1.23 mg/dL BUN/Creatinine Ratio - 8.9 ratio Calcium Lvl - 8.4 mg/dL Total Protein - 6.5 G/dL Albumin Level - 3.2 G/dL Globulin - 3.3 G/dL A/G Ratio - 1.0 ratio Bili Total - 0.40 mg/dL Alk Phos - 83 U/L AST/SGOT - 19 U/L ALT/SGPT - 27 U/L Cortisol Level (05/12/2022) Cortisol Level - 12.5 mcg/dL Free T3 (05/12/2022) Free T3 - 3.43 pg/mL Free T4 (05/12/2022) Free T4 - 1.13 ng/dL LDH (05/12/2022) LDH - 253 U/L TSH (05/12/2022) TSH - 1.845 mIU/mL Allergies penicillin (Swelling) Additional Information VACCINATE! IT SAVES LIVES! Members of the community who have not yet received the COVID-19 vaccine and would like to receive it can visit one of [facility] vaccine clinics. There are many vaccine clinic locations within the [facility]. For locations and available times, please visit [email or web address]/. It is important to note that some COVID mobile vaccine clinics are held outdoors and may be canceled in rainy or stormy conditions. To learn more about pediatric vaccinations (ages 5-11), we invite you to visit the [facility] webpage. https://www.[facility].org/pages/6837-Ndboq-Rkktjmiarlv-Gdwoyvurem-Regwb-Wco stions.htmlTo learn more about the COVID-19 vaccine, we invite you to visit the CDC website for a list of frequently asked questions. https://www.cdc.gov/coronavirus/2019-ncov/vaccines/faq.html [facility] Patient Portal Access Instructions: Stay connected with your healthcare team and access your personal medical information anytime with the [facility] Patient Portal.If you would like a full copy of your medical records, please contact the [facility] Medical Records Department, Monday through Monday between 8a.m. and 4:30p.m. Please follow the directions below to access the portal: 1.Access the email account you provided upon registration [facility] the [facility].2.Look for an invitation email from [facility].3.Open the email and access the invitation link: Accept Invitation to [facility]4.Fill in the required delaney to create your account. Sign into [email or web address] with your username and password that you created in the above steps to stay up to date. You can then view a summary of results, a summary of your visits, and the ability to download your summaries to your computer or send the information securely to a physician. Remember that your healthcare information is confidential, so carefully consider who you will allow to register on the [facility] Patient Portal for access to your information. You can also access the [facility] Patient Portal on the [employer]. Simply click on "Health Records" under "HealthData" and then click on the [employer] logo. HOW TO SAFELY DISPOSE OF PRESCRIPTION MEDICATIONS Please use one of the following methods to safely dispose of your unused medications. 1.Use a drug disposal kit: the drug disposal pouch allows you to safely discard your old and unuseddrugs. Ask your nurse to give you one when you are discharged.2.Visit a local take-back location: Many local pharmacies and police departments have programs that collect old and unwanted prescriptiondrugs. Call your local pharmacy or go to http://bit.Oddslife/5T5Bs0y to find one close to you.3.Make use of household items: Use cat litter or old coffee grounds to dispose medications if other options arenot available. Mix your drugs with these household products, seal them in an airtight container andthrow it into the garbage. Call [facility]: [phone] to be sure your drugs can be disposed of in this way. Some medicines may require a different approach.4.Never flush your medications down the toilet. IF YOU HAVE BEEN PRESCRIBED AN OPIOID FOR PAIN If you have been prescribed an opioid (such as hydrocodone, oxycodone or morphine), it is critical to understand the possible side effects and risks of opioid pain medications. Even when taken as directed, opioids can have several side effects including: Tolerance, meaning you might need to take more of a medication for the same pain relief. Nausea, vomiting and/or constipation. Sleepiness, dizziness, dry mouth, confusion, depression or itching. Physical dependence, meaning you have withdrawal symptoms when a medication is stopped, can develop within a few days. KNOW YOUR RESPONSIBILITIES It is important to know exactly how much and how often to take the opioid pain medications you are prescribed. Never take opioids in higher amounts or more often than prescribed. Do not combine opioids with alcohol or other drugs that cause drowsiness, such as benzodiazepines, also known as benzos, including diazepam and alprazolam, muscle relaxants or sleep aids. Never sell or share prescription opioids. This is illegal. Store opioids in a secure place and out of reach of others (including children, family, friends and visitors). The last page of this document has been signed and retained as a CHART COPY. Signatures Patient Education Materials Medication Leaflets My discharge plan and instructions have been reviewed and explained to me and IJESSICA DAVID D understand my current condition and have read and understand these discharge instructions. I have received a written copy of the plan/instructions. If I have questions, I am aware that I should contact my doctor. Patient/Record Keeper Signature: Date/Time: Relationship to Patient: Witness Name/Signature: Date/Time[id number] Summary of episode note LYNDSAY LOPEZ :1980 Visit Date:03/17/2022 Your Visit Summary Your Diagnosis Malignant neoplasm of unspecified kidney, except renal pelvis, Metastatic renal cell carcinoma. S/PLeft cytoreductive nephrectomy 08/14/20. 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 Your Care Team Attending Physician - BHAVIK TRIANA MD Primary Care Physician - PROSPER MANJARREZ DO Vitals Temperature (Oral) 36.5 C Heart Rate 78 Respiratory Rate 18 Blood Pressure 143/71 Height 172.7 cm Weight 166.3 kg BMI 55.76 What to do next Instructions From Your Doctor You have received the following therapy today: Chemotherapy/Immunotherapy Call your physician if any of the following problems occur: Nausea/Vomiting Mouth Sores Diarrhea Fever Prolonged bleeding or easy bruising Pain or discomfort at the injection site Scheduled Follow-Up Appointments Appointment Type When With Where Contact InformationIR Procedure Follow Up 03/21/2022 09:00 AM HAN LAUREN HEM ONC OV Follow Up w/Active Treatment 04/14/2022 10:15 AM BHAVIK SWAN MD Hematology and Oncology PALL OV Follow Up 05/12/2022 11:00 AM LIAN COVINGTON MD Palliative Care Medications What How Much When Why Instructions Unchanged oxyCODONE (oxyCODONE 5 mg oral tablet ( IMMEDIATE release )) 1 tab(s) by mouth Every 8 hours as needed for as needed for pain Renal cancer Unchanged polyethylene glycol 3350 (Miralax 255 gm bottle) by mouth Once a day as needed for Congestion Unchanged senna (senna 8.6 mg oral tablet) 2 tab(s) by mouth Two (2) times a day as needed for as needed for constipation Test Results .Auto Differential (03/17/2022) Neutrophil % - 68.9 % Lymphocyte % - 19.0 % Monocyte % - 3.7 % Eosinophil % - 7.5 % Basophil % - 0.9 % Lymphocyte, Absolute - 1.6 10^3/mcL Monocyte, Absolute - 0.3 10^3/mcL Eosinophil, Absolute - 0.610^3/mcL Basophil, Absolute - 0.1 10^3/mcL .Estimated Glomerular Filtration Rate (03/17/2022) GFR Non- - >60 ml/min/1.73sqm GFR - >60 ml/min/1.73sqm .Neutro Absolute (03/17/2022) Neutrophil, Absolute - 5.8 10^3/mcL Basic Metabolic Panel (03/17/2022) Glucose Level - 138 mg/dL Sodium Level - 140 mEq/L Potassium Level - 4.3 mEq/L Chloride - 105 mEq/LCO2 - 29 mEq/L Electrolyte Balance - 6.0 mEq/L BUN - 14.0 mg/dL Creatinine Lvl (s) - 1.18 mg/dL BUN/Creatinine Ratio - 11.9 ratio Calcium Lvl - 9.0 mg/dL CBC (03/17/2022) WBC - 8.4 10^3/mcL RBC - 5.05 10^6/mcL Hgb - 16.6 G/dL Hct - 50.5 % MCV - 100.1 fL MCH - 32.9 pg MCHC - 32.9 G/dL RDW - 14.1 % Platelet - 230 10^3/mcL MPV - 7.3 fL Free T3 (03/17/2022) Free T3 - 3.55 pg/mL Free T4 (03/17/2022) Free T4 - 1.05 ng/dL Hepatic Function Panel ([facility]) (03/17/2022) Total Protein - 6.8 G/dL Albumin Level - 3.2 G/dL Globulin - 3.6 G/dL A/G Ratio - 0.9 ratio Bili Total - 0.40 mg/dL Bili Direct - 0.2 mg/dL Bili Indirect - 0.2 mg/dL Alk Phos - 88 U/L AST/SGOT - 25 U/L ALT/SGPT - 31 U/L LDH (03/17/2022) LDH - 218 U/L TSH (03/17/2022) TSH - 3.518 mIU/mL Allergies penicillin (Swelling) Additional Information VACCINATE! IT SAVES LIVES! Members of the community who have not yet received the COVID-19 vaccine and would like to receive it can visit one of [facility] vaccine clinics. There are many vaccine clinic locations within the [facility]. For locations and available times, please visit [email or web address]. It is important to note that some COVID mobile vaccine clinics are held outdoors and may be canceled in rainy orstormy conditions. To learn more about pediatric vaccinations (ages 5-11), we invite you to visit the [facility] webpage. https://www.[email or web address].org/pages/4167-Weuwx-Fafsqvbotlb-Scqwahaxux-Satbz-Tuj stions.htmlTo learn more about the COVID-19 vaccine, we invite you to visit the [facility] website for a list of frequently asked questions. [email or web address]/[email or web address]-Agfxqkyiwy _Asked-Questions.pdf [facility] Patient Portal Access Instructions: Stay connected with your healthcare team and access your personal medical information anytime with the [facility] Patient Portal.If you would like a full copy of your medical records, please contact the [facility] Medical Records Department, Monday through Monday between 8a.m. and 4:30p.m. Please follow the directions below to access the portal: 1.Access the email account you provided upon registration to the hospital.2.Look for an invitation email from [facility].3.Open the email and access the invitation link: Accept Invitation to [facility]4.Fill in the required delaney to create your account. Sign into [email or web address] with your username and password that you created in the above steps to stay up to date. You can then view a summary of results, a summary of your visits, and the ability to download your summaries to your computer or send the information securely to a physician. Remember that your healthcare information is confidential, so carefully consider who you will allow to register on the [facility] Patient Portal for access to your information. You can also access the [facility] Patient Portal on the [facility]. Simply click on "Health Records" under "HealthData" and then click on the [facility] logo. HOW TO SAFELY DISPOSE OF PRESCRIPTION MEDICATIONS Please use one of the following methods to safely dispose of your unused medications. 1.Use a drug disposal kit: the drug disposal pouch allows you to safely discard your old and unuseddrugs. Ask your nurse to give you one when you are discharged.2.Visit a local take-back location: Many local pharmacies and police departments have programs that collect old and unwanted prescriptiondrugs. Call your local pharmacy or go to http://Huan Xiong.Oddslife/5K0Fc2y to find one close to you.3.Make use of household items: Use cat litter or old coffee grounds to dispose medications if other options arenot available. Mix your drugs with these household products, seal them in an airtight container andthrow it into the garbage. Call [facility]: [phone] to be sure your drugs can be disposed of in this way. Some medicines may require a different approach.4.Never flush your medications down the toilet. IF YOU HAVE BEEN PRESCRIBED AN OPIOID FOR PAIN If you have been prescribed an opioid (such as hydrocodone, oxycodone or morphine), it is critical to understand the possible side effects and risks of opioid pain medications. Even when taken as directed, opioids can have several side effects including: Tolerance, meaning you might need to take more of a medication for the same pain relief. Nausea, vomiting and/or constipation. Sleepiness, dizziness, dry mouth, confusion, depression or itching. Physical dependence, meaning you have withdrawal symptoms when a medication is stopped, can develop within a few days. KNOW YOUR RESPONSIBILITIES It is important to know exactly how much and how often to take the opioid pain medications you are prescribed. Never take opioids in higher amounts or more often than prescribed. Do not combine opioids with alcohol or other drugs that cause drowsiness, such as benzodiazepines, also known as benzos, including diazepam and alprazolam, muscle relaxants or sleep aids. Never sell or share prescription opioids. This is illegal. Store opioids in a secure place and out of reach of others (including children, family, friends and visitors). The last page of this document has been signed and retained as a CHART COPY. Signatures Patient Education Materials Medication Leaflets My discharge plan and instructions have been reviewed and explained to me and IJESSICA DAVID D understand my current condition and have read and understand these discharge instructions. I have received a written copy of the plan/instructions. If I have questions, I am aware that I should contact my doctor. Patient/Record Keeper Signature: Date/Time: Relationship to Patient: Witness Name/Signature: Date/Time: [id number] Note ORIGINAL PROCEDURE: Ultrasound and fluoroscopic guided internal jugular vein chest port placement performed on 03/07/2022. INDICATION: Vascular access. TECHNIQUE/FINDINGS: The procedure was performed in the VIR Suite following informed consent and a Time Out. The patient received preprocedure IV antibiotics. Local anesthesia was obtained using 2% lidocaine with epinephrine. With the patient in the supine position, the right neck and upper chest were prepped and draped in the usual sterile fashion. Procedure performed with all elements of maximal sterile barrier technique, hand hygiene, skin preparation, and sterile ultrasound techniques. The right internal jugular vein was evaluated by ultrasound and was found to be widely patent. An appropriate skin entry site was identified using ultrasound. The right internal jugular vein was accessed using a 21-G needle using ultrasound guidance. A sonographic image was captured and archived at the time of needle access. A 0.018 inch guidewire was advanced into the vein using fluoroscopic guidance. A 5-F micropuncture catheter was placed over the guidewire. A site several centimeters below the inferior margin of the clavicle was identified as the port reservoir pocket. A transverse incision was made with a #15 blade scalpel and a port pocket was created using blunt dissection. The catheter was tunneled through the chest incision to the lateral neck dermatotomy. The port was placed into the subcutaneous pocket. Using the intravascular length measured by the 0.018 inch guidewire, the catheter was cut to its final length. Using fluoroscopic guidance, the micropuncture catheter was exchanged over a 0.035 inch guidewire for a peel-away sheath. The port catheter was advanced through the peel-away sheath and positioned with the tip in the upper right atrium. A fluoroscopic image was obtained which confirmed the tip of the catheter in the upper right atrium. The port was accessed with a Nunes needle and the catheter lumen aspirated and flushed freely. The catheter lumen was flushed with Heparin 100 units / mL. The port was left without an access needle. The right neck dermatotomy incision was closed with a skin adhesive. The port pocket insertion incision was closed with interrupted subcutaneous 4-0 Vicryl sutures and skin adhesive. The port was dressed in the usual fashion. There were no immediate complications. The patient tolerated the procedure well. Total Fluoroscopy Time: 1.3 minutes. Reference Air Kerma (DEBORAH): 95 mGy. IMPRESSION: Successful placement of a single lumen 8-F chest Power Port via the right internal jugular vein. Interpreted by: Andi Spencer MD Preliminary Report By: Andi Spencer MD Electronically signed By Andi Spencer MD Dictated Date: 03/07/2022 3:31:18 PM Prelim Date: 03/07/2022 3:32:38 PM Sign Date: 03/07/2022 3:32:38 PM Ordering Provider: [facility]01[facility]23-[facility]23 Evaluation + Plan noteExtracted from: Title:IR pre procedure H&P Author:ELIAZAR BANKS PA-C Date:03/07/22 IR PREPROCEDURE H&P UPDATE IF A HISTORY AND PHYSICAL EXAMINATION HAS BEEN COMPLETED PRIOR TO ADMISSION TO THE HOSPITAL, AN UPDATED EXAMINATION MUST BE COMPLETED AND DOCUMENTED WITHIN 24 HOURS AFTER ADMISSION OR REGISTRATION BUT BEFORE A SURGICAL PROCEDURE. I have examined the patient, reviewed the H&P, and there are no changes unless noted below: _ The most recent H&P/Office Note has been performed on 02/17/2022 and can be found on paper, which has been scanned into the [facility] PACS/RIS system. _ Future Appointments Appointment Date:03/08/2022 09:30:00 AM Scheduled Provider: Location:RAD Appointment Type:yyCT Abdomen and Pelvis w/ Contrast 3 Appointment Date:03/08/2022 10:00:00 AM Scheduled Provider: Location:RAD Appointment Type:yyCT Chest w/ Contrast 3 Appointment Date:03/17/2022 09:30:00 AM Scheduled Provider: Location:INF Appointment Type:INF Labwork Appointment Date:03/17/2022 10:15:00 AM Scheduled Provider:BHAVIK TRIANA MD Location:HEM ONC Appointment Type:HEM ONC OV Follow Up w/Active Treatment Appointment Date:03/17/2022 10:45:00 AM Scheduled Provider: Location:INF Appointment Type:INF Chemo: Infusion 120 min (2 hours) Appointment Date:03/17/2022 11:00:00 AM Scheduled Provider:LIAN FUNG MD Location:[facility] Palliative Appointment Type:PALL OV Follow Up Appointment Date:03/21/2022 09:00:00 AM Scheduled Provider: Location:IR Appointment Type:IR Procedure Follow Up Future Scheduled Tests Laboratory* Basic Metabolic Panel w/ Ionized Calcium (CC) 03/17/22 * Basic Metabolic Panel w/ Ionized Calcium (CC) 12/09/21 * Cortisol, Free Serum 06/30/21 * Cortisol, Free Serum 06/02/21 * Cortisol, Free Serum 05/05/21 * Hepatic Function Panel 12/09/21 * Lactate Dehydrogenase 06/30/21 * Lactate Dehydrogenase 06/02/21 * Lactate Dehydrogenase 05/05/21 * Lactate Dehydrogenase 03/17/22 * Lactate Dehydrogenase 12/09/21 * Thyroid Stimulating Hormone 06/30/21 * Thyroid Stimulating Hormone 06/02/21 * Thyroid Stimulating Hormone 05/05/21 * Thyroid Stimulating Hormone 03/17/22 * Free T4 06/30/21 * Free T4 06/02/21 * Free T4 05/05/21 * Free T4 03/17/22 * Hepatic Function Panel (Cancer [facility]) 03/17/22 * Complete Blood Count 06/30/21 * Complete Blood Count 06/02/21 * Complete Blood Count 05/05/21 * Complete Blood Count 03/17/22 * Complete Blood Count 12/09/21 * Cortisol Drawn in AM 03/17/22 * Free T3 06/30/21 * Free T3 06/02/21 * Free T3 05/05/21 * Free T3 03/17/22 * Complete Metabolic Panel 06/30/21 * Complete Metabolic Panel 06/02/21 * Complete Metabolic Panel 05/05/21 Radiology* IR Procedure Follow Up 03/21/22 * CT Thorax w/ Contrast 03/08/22 * CT Thorax w/ Contrast 08/18/21 * XR Shoulder Minimum 2 Views Right 12/08/21 * CT Abdomen and Pelvis w/ contrast 03/08/22 * CT Abdomen and Pelvis w/ contrast 08/18/21 [facility] 01-23-2023 Hospital Discharge instructions Patient Education 03/07/2022 11:40:16 Radiology- Port Placement (CUSTOM) [place] Port Placement Discharge Instructions Interventional Radiology [facility] [address] [place] [address] Your physician has requested that you have a port placed. The port is usually placed in the upper chest and lies completely under the skin. A special needle is used to access the port when needed. The port will allow for frequent intravenous medication administration or blood draws without startingan IV each time. The port can be left in place for several years and can be removed when your physician feels it is no longer needed during a short procedure. Diet: Resume your normal diet as tolerated. Activity: Avoid strenuous activity for 3 days. You will need to sponge bathe for the first 3 days. After 3 days, you may shower. Do not submerge the site in the bath tub, swimming pool, or hot tub for 7 days. Dressing: Keep the incision site dry for 3 days. Remove the dressing after three days and leave it open to air. Do not remove the steri-strips. They will come off on their own in time. Pain Control: Azgw-evw-lrbjevs pain medication should be used for pain or discomfort. Please check with the physician who sent you for this procedure for their specific recommendations. If you were sedated for this procedure: Avoid alcoholic beverages for 24 hours after your procedure. Do not drive or operate heavy machinery for 24 hours after your procedure. Do not make any legal decisions for 24 hours after your procedure. Medication: Please resume on Site Care: Carry your card with port information at all times. All blood samples should be taken from the port. Your port will need flushed every 4 weeks when not in use. Please talk with the physician who ordered the port to coordinate this. Ask your primary physician for a prescription for EMLA Cream. This cream can be applied over the port site to numb the skin when you know the port is going to be accessed. When to seek medial care: Foul odor, pus drainage, redness, or swelling at puncture site. Excessive bleeding from puncture site. Fever greater than 101 degrees and chills. If you experience any of these issues during the first 24 hours, please follow the instruction below: 8:00 am- 5:00 pm call [phone] After 5:00 pm call [phone] After 24 hours, contact the physician who ordered this procedure for you. Special Instructions: Follow Up Care 01/20/2022 14:10:01 With:BHAVIK TRIANA MD Address: [address] [place] [address] Hematology [place] [address] [phone] When: Unknown Comments:Follow-up as scheduled [facility] 01-23-2023 Summary of episode note Discharge Instructions Thank you for allowing [facility] to assist you with your healthcare needs. The following is importantdischarge information regarding your hospital visit. Your Care Team PROSPER MANJARREZ DO What to do next Scheduled Follow-Up Appointments Appointment Type When With Where Contact InformationyyCT Abdomen and Pelvis w/ Contrast 3 03/08/2022 09:30 AM EST [facility] yyCT Chest w/ Contrast 3 03/08/2022 10:00 AM EST [facility] INF Labwork 03/17/2022 09:30 AM EST Infusion Therapy HEM ONC OV Follow Up w/Active Treatment 03/17/2022 10:15 AM EST BHAVIK TRIANA MD Hematology and Oncology INF Chemo: Infusion 120 min (2 hours) 03/17/2022 10:45 AM EST Infusion Therapy PALL OV Follow Up 03/17/2022 11:00 AM EST LIAN FUNG MD Palliative Care IR Procedure Follow Up 03/21/2022 09:00 AM EST IR Follow Up Appointments Follow Up with BHAVIK TRIANA MD When Why: Follow-up as scheduled Where: [facility] [address] [place] [address] [place]ology [place] [address]- [phone] The Following Activity and Diet Have Been Ordered for You No qualifying data available. No qualifying data available. The Following Equipment Has Been Ordered for You No qualifying data available. The Following Treatments Have Been Ordered for You Discharge Labs No qualifying data available. Discharge Radiology No qualifying data available. Other Therapies No qualifying data available. Post Acute Orders No qualifying data available. Someone Will Contact You Regarding These Home Health Referrals No home referrals have been ordered for you. No one will call you. Allergies penicillin (Swelling) Medications Please ask your primary doctor or pharmacist before taking any other medication not listed, including over the counter drugs, herbal medications, vitamins and or supplements as they may interact withyour home medications. What How Much When Why Instructions Last Dose Unchanged oxyCODONE (oxyCODONE 5 mg oral tablet ( IMMEDIATE release )) 1 tab(s) by mouth Every 8 hours as needed for as needed for pain Renal cancer Unchanged polyethylene glycol 3350 (Miralax 255 gm bottle) by mouth Once a day as needed for Congestion Unchanged senna (senna 8.6 mg oral tablet) 2 tab(s) by mouth Two (2) times a day as needed for as needed for constipation Please take this list to your next doctor s visit. Bring all medications you take, including over the counter medications, herbals and other supplements with you to your doctor s visit. Patients and families are reminded to discard old lists and to update any records with all medication providers or retail pharmacies. Education Materials [place] Port Placement Discharge Instructions Interventional Radiology [facility] [address] [address] Your physician has requested that you have a port placed. The port is usually placed in the upper chest and lies completely under the skin. A special needle is used to access the port when needed. The port will allow for frequent intravenous medication administration or blood draws without startingan IV each time. The port can be left in place for several years and can be removed when your physician feels it is no longer needed during a short procedure. Diet: Resume your normal diet as tolerated. Activity: Avoid strenuous activity for 3 days. You will need to sponge bathe for the first 3 days. After 3 days, you may shower. Do not submerge the site in the bath tub, swimming pool, or hot tub for 7 days. Dressing: Keep the incision site dry for 3 days. Remove the dressing after three days and leave it open to air. Do not remove the steri-strips. They will come off on their own in time. Pain Control: Cick-bhh-iukgrfh pain medication should be used for pain or discomfort. Please check with the physician who sent you for this procedure for their specific recommendations. If you were sedated for this procedure: Avoid alcoholic beverages for 24 hours after your procedure. Do not drive or operate heavy machinery for 24 hours after your procedure. Do not make any legal decisions for 24 hours after your procedure. Medication: Please resume on Site Care: Carry your card with port information at all times. All blood samples should be taken from the port. Your port will need flushed every 4 weeks when not in use. Please talk with the physician who ordered the port to coordinate this. Ask your primary physician for a prescription for EMLA Cream. This cream can be applied over the port site to numb the skin when you know the port is going to be accessed. When to seek medial care: Foul odor, pus drainage, redness, or swelling at puncture site. Excessive bleeding from puncture site. Fever greater than 101 degrees and chills. If you experience any of these issues during the first 24 hours, please follow the instruction below: 8:00 am- 5:00 pm call [phone] After 5:00 pm call [phone] After 24 hours, contact the physician who ordered this procedure for you. Special Instructions: Additional Information VACCINATE! IT SAVES LIVES! Members of the community who have not yet received the COVID-19 vaccine and would like to receive it can visit one of [facility] vaccine clinics. There are many vaccine clinic locations within the [facility]. For locations and available times, please visit [email or web address]/. It is important to note that some COVID mobile vaccine clinics are held outdoors and may be canceled in rainy or stormy conditions. To learn more about pediatric vaccinations (ages 5-11), we invite you to visit the [facility] webpage. [email or web address].[email or web address]/pages/[email or web address]-Rnrwq-Znpkiujaabq-Ctwegxtgsw-Qrcjh-Suo stions.htmlTo learn more about the COVID-19 vaccine, we invite you to visit the [facility] website for a list of frequently asked questions. [email or web address]-[email or web address]-Mvcvgqld/[email or web address]-Hdwqykm-[email or web address] _Asked-Questions.pdf [facility] Patient Portal Access Instructions: Stay connected with your healthcare team and access your personal medical information anytime with the [facility] Patient Portal.If you would like a full copy of your medical records, please contact the [facility] Medical Records Department, Monday through Monday between 8a.m. and 4:30p.m. Please follow the directions below to access the portal: 1.Access the email account you provided upon registration to the [facility].2.Look for an invitation email from [facility].3.Open the email and access the invitation link: Accept Invitation to [facility]4.Fill in the required delaney to create your account. Sign into [email or web address] [employer] with your username and password that you created in the above steps to stay up to date. You can then view a summary of results, a summary of your visits, and the ability to download your summaries to your computer or send the information securely to a physician. Remember that your healthcare information is confidential, so carefully consider who you will allow to register on the [facility] Patient Portal for access to your information. You can also access the [facility] Patient Portal on the [employer]. Simply click on "Health Records" under "HealthData" and then click on the [facility] logo. HOW TO SAFELY DISPOSE OF PRESCRIPTION MEDICATIONS Please use one of the following methods to safely dispose of your unused medications. 1.Use a drug disposal kit: the drug disposal pouch allows you to safely discard your old and unuseddrugs. Ask your nurse to give you one when you are discharged.2.Visit a local take-back location: Many local pharmacies and police departments have programs that collect old and unwanted prescriptiondrugs. Call your local pharmacy or go to http://bit.ly/0I8Bi9b to find one close to you.3.Make use of household items: Use cat litter or old coffee grounds to dispose medications if other options arenot available. Mix your drugs with these household products, seal them in an airtight container andthrow it into the garbage. Call [facility]: [phone] to be sure your drugs can be disposed of in this way. Some medicines may require a different approach.4.Never flush your medications down the toilet. IF YOU HAVE BEEN PRESCRIBED AN OPIOID FOR PAIN If you have been prescribed an opioid (such as hydrocodone, oxycodone or morphine), it is critical to understand the possible side effects and risks of opioid pain medications. Even when taken as directed, opioids can have several side effects including: Tolerance, meaning you might need to take more of a medication for the same pain relief. Nausea, vomiting and/or constipation. Sleepiness, dizziness, dry mouth, confusion, depression or itching. Physical dependence, meaning you have withdrawal symptoms when a medication is stopped, can develop within a few days. KNOW YOUR RESPONSIBILITIES It is important to know exactly how much and how often to take the opioid pain medications you are prescribed. Never take opioids in higher amounts or more often than prescribed. Do not combine opioids with alcohol or other drugs that cause drowsiness, such as benzodiazepines, also known as benzos, including diazepam and alprazolam, muscle relaxants or sleep aids. Never sell or share prescription opioids. This is illegal. Store opioids in a secure place and out of reach of others (including children, family, friends and visitors). The last page of this document has been signed and retained as a CHART COPY. Signatures Patient Education Materials Radiology- Port Placement (CUSTOM) Medication Leaflets My discharge plan and instructions have been reviewed and explained to me and IJESSICA DAVID D understand my current condition and have read and understand these discharge instructions. I have received a written copy of the plan/instructions. If I have questions, I am aware that I should contact my doctor. Patient/Record Keeper Signature: Date/Time: Relationship to Patient: Witness Name/Signature: Date/Time: [id number] Note ORIGINAL PROCEDURE: Ultrasound and fluoroscopic guided internal jugular vein chest port placement performed on 03/07/2022. INDICATION: Vascular access. TECHNIQUE/FINDINGS: The procedure was performed in the VIR Suite following informed consent and a Time Out. The patient received preprocedure IV antibiotics. Local anesthesia was obtained using 2% lidocaine with epinephrine. With the patient in the supine position, the right neck and upper chest were prepped and draped in the usual sterile fashion. Procedure performed with all elements of maximal sterile barrier technique, hand hygiene, skin preparation, and sterile ultrasound techniques. The right internal jugular vein was evaluated by ultrasound and was found to be widely patent. An appropriate skin entry site was identified using ultrasound. The right internal jugular vein was accessed using a 21-G needle using ultrasound guidance. A sonographic image was captured and archived at the time of needle access. A 0.018 inch guidewire was advanced into the vein using fluoroscopic guidance. A 5-F micropuncture catheter was placed over the guidewire. A site several centimeters below the inferior margin of the clavicle was identified as the port reservoir pocket. A transverse incision was made with a #15 blade scalpel and a port pocket was created using blunt dissection. The catheter was tunneled through the chest incision to the lateral neck dermatotomy. The port was placed into the subcutaneous pocket. Using the intravascular length measured by the 0.018 inch guidewire, the catheter was cut to its final length. Using fluoroscopic guidance, the micropuncture catheter was exchanged over a 0.035 inch guidewire for a peel-away sheath. The port catheter was advanced through the peel-away sheath and positioned with the tip in the upper right atrium. A fluoroscopic image was obtained which confirmed the tip of the catheter in the upper right atrium. The port was accessed with a Nunes needle and the catheter lumen aspirated and flushed freely. The catheter lumen was flushed with Heparin 100 units / mL. The port was left without an access needle. The right neck dermatotomy incision was closed with a skin adhesive. The port pocket insertion incision was closed with interrupted subcutaneous 4-0 Vicryl sutures and skin adhesive. The port was dressed in the usual fashion. There were no immediate complications. The patient tolerated the procedure well. Total Fluoroscopy Time: 1.3 minutes. Reference Air Kerma (DEBORAH): 95 mGy. IMPRESSION: Successful placement of a single lumen 8-F chest Power Port via the right internal jugular vein. Interpreted by: Andi Spencer MD Preliminary Report By: Andi Spencer MD Electronically signed By Andi Spencer MD Dictated Date: 03/07/2022 3:31:18 PM Prelim Date: 03/07/2022 3:32:38 PM Sign Date: 03/07/2022 3:32:38 PM Ordering Provider: [facility]01-23-2023 Note IR Procedure Record Summary Primary Physician: ANDI SPENCER MD Finalized Date/Time: 03/07/22 11:07:10 Pt. Name: LYNDSAY LOPEZO.B./Sex: 1980 Male Med Rec #: [id number] Physician: Financial #: [id number] Pt. Type: S Room/Bed: [facility]/A Admit/Disch: 03/07/22 07:53:32 - Institution: Allergies identified in patient's electronic medical record at time of printing on 03/07/22 Entry 1 Substance penicillin Reaction Type Allergy Last Modified By: HENOK Schmidt 07/28/14 09:09:16 Case Attendance- IR Entry 1 Entry 2 Entry 3 Case Attendee ANDI SPENCER MD, Rad Tech Gabi Gasca Role Performed Primary Surgeon Scrub Technologist Circulating Technologist Details Time In 03/07/22 10:39:00 03/07/22 10:10:00 03/07/22 10:10:00 Time Out 03/07/22 11:04:00 03/07/22 11:09:00 03/07/22 11:09:00 Procedure/Preference IR Tunneled Catheter IR Tunneled Catheter IR Tunneled Catheter Card Insertion/Port SN Insertion/Port SN Insertion/Port SN Last Modified By: Gabi Geronimo Megan R Rad Fierstos, Megan R Rad Tech 03/07/22 11:04:50 Tech 03/07/22 11:04:50 Tech 03/07/22 11:04:50 Entry 4 Case Attendee HENOK Bhat Role Performed Procedure Nurse Details Time In 03/07/22 10:10:00 Time Out 03/07/22 11:09:00 Procedure/Preference IR Tunneled Catheter Card Insertion/Port SN Last Modified By: Gabi Geronimo Fountain Jerk 03/07/22 11:04:50 Radiology Procedures- IR Entry 1 Procedure/Preference IR Tunneled Catheter Actual Procedure IR PORT PLACEMENT SN Card Insertion/Port SN Primary Procedure Yes Primary Surgeon ANDI SPENCER MD Anesthesia/Sedation Local Type Additional Procedure Times Start 03/07/22 10:39:00 Stop 03/07/22 11:04:00 Specialty Service SN Radiology Procedure EBL 2 mL Last Modified By: Gabi Geronimo Fountain Jerk 03/07/22 11:04:54 Radiology Procedure Details - IR Entry 1 Radiology Sedation Case Times Sedation Total Time 0min Radiology - Fluid/Drainage Radiology Contrast Contrast Used? No Radiology Flouroscopy Fluoroscopy Used? Yes Fluoro Dose (mGy) 95 Fluoro Time 1.3minutes Radiology Local Local Used? Yes Local Type: lidocaine w/ epinephrine Local Dose 20ml Radiology Procedure Site Site/Location right neck/chest Site Condition No complications Suture 4.0 Vicryl Suture, Dressing Type Gauze sponge 4 X 4, Liquiband Skin Adhesive Transparent Technologist Notes Medcomp 8Fr Dignity port inserted in rt chest Last Modified By: Gabi Geronimo Fountain Jerk 03/07/22 11:03:46 General Case Data - IR Entry 1 Case Information Room IR 18 Case Level IR Level 2 Wound Class None Specialty SN Radiology Procedure ASA Class None Diagnosis Preop Diagnosis port placement Postop Same As Preop Yes Postop Diagnosis port placement Last Modified By: HENOK Bhat 03/07/22 10:31:32 Procedure Case Times- IR Entry 1 Patient In Procedure Patient In OR 03/07/22 10:10:00 Patient Out of OR 03/07/22 11:09:00 Procedure Start/Stop Procedure Start Time 03/07/22 10:39:00 Procedure Stop Time 03/07/22 11:04:00 Last Modified By: Gabi Geronimo R Fountain Jerk 03/07/22 11:04:41 Immediate Post Procedure Note - IR Entry 1 Immediate Post Yes Procedure Note displayed for Physician to review Closure Technique Closure Technique Primary Last Modified By: HENOK Bhat 03/07/22 10:31:08 Immediate Post Procedure Note - IR Signed By: ANDI SPENCER MD 03/07/22 11:04 Allergy Information- IR Entry 1 Allergies Reviewed? Yes Allergies Reviewed Medical Record With Last Modified By: HENOK Bhat 03/07/22 10:25:28 Radiology Protocols/Time Out- IR Entry 1 Preprocedure Clinician Verifies Correct patient ID When Clinically Confirmation of correct using name & date Indicated side(s) and site(s), or MRN, Accurate Correct diagnostic and procedure, complete radiology tests Informed Consent, H & P available, Required update immediately blood products, prior to procedure, if implants, devices applicable and/or special equipment available OR/Procedure Room/Bedside Time 03/07/22 10:39:00 Clinician Verifies Correct patient identity including EMR & records using name and date or medical record number, Accurate procedure consent form, Correct patient position, Necessary equipment is available, Anticipated non-routine events with surgical team (case duration, estimated blood loss, patient specific concerns)., Fernando patient factors for recovery and management identified with surgical team. When Applicable Confirmation correct Team Members ANDI SPENCER MD, side and site marked, Present for Time Out Ansley Fountain Jerk Kari Relevant images and A, Gabi Geronimo results are properly Fountain JerkPerlita Parks RN labeled and Lamonte appropriately displayed, Confirm/obtain preop antibiotic order., Alcohol based prep dry, Double verification of sterility indicators complete Instrument Sterility Team Members ANDI SPENCER MD, Verifying Sterility Renélosandra Fountain Jerk Kari A Procedure IR Tunneled Catheter Insertion/Port SN Last Modified By: Gabi Geronimo Fountain Jerk 03/07/22 11:00:33 Skin Prep- IR Entry 1 Procedure IR Tunneled Catheter Insertion/Port SN Skin Prep Prep Area Chest, Neck Side Right By Ansley Fountain Jerk Kari A Prep Agents Chloraprep Hair Removal Method Clipped in OR Last Modified By: Gabi Geronimo Fountain Jerk 03/07/22 10:59:36 Patient Positioning- IR Entry 1 Procedure IR Tunneled Catheter Body Position OP Supine Insertion/Port SN Feet Uncrossed? Yes Pressure Points Yes Checked Last Modified By: Gabi Geronimo Fountain Jerk 03/07/22 10:59:36 Implants- IR Entry 1 Implant/Explant Implant Implant Description PORT MINI 8FR DIGNITY ATTACHABLE 1/EA [id number] Wasted? No Lot Number [id number] Fisheries Technical Officer medcomp Size 8F Expiration Date 01/12/26 Implant Site right IJ Quantity 1 Last Modified By: HENOK Bhat 03/07/22 10:34:36 Radiology Procedure Plan - IR Entry 1 Radiology - Nursing Care Plan Outcome Statement The patient Outcome Statement The patient receives demonstrates knowledge Cont. appropriate of the expected medication(s), safely responses to the administered during the operative/invasive perioperative/invasive procedure., The period., The patient is patient's value system, free from signs and lifestyle, ethnicity, symptoms of injury and culture are caused by extraneous considered, respected, objects (equipment, and incorporated in the instrumentation, perioperative plan of sponges, or sharps). care., The patient is free from signs and symptoms of infection., The patient is free from signs and symptoms of injury related to positioning. Radiology - Action Plan Outcomes Met? Yes Conservation Science Teacher HENOK Bhat Completing Procedure Plan Last Modified By: HENOK Bhat 03/07/22 10:31:19 Case Comments Finalized By: Gabi Geronimo Fountain Jerk Document Signatures Signed By: Gabi Geronimo 03/07/22 11:07 [id number] History and physical note IR PREPROCEDURE H&P UPDATE IF A HISTORY AND PHYSICAL EXAMINATION HAS BEEN COMPLETED PRIOR TO ADMISSION TO THE HOSPITAL, AN UPDATED EXAMINATION MUST BE COMPLETED AND DOCUMENTED WITHIN 24 HOURS AFTER ADMISSION OR REGISTRATION BUT BEFORE A SURGICAL PROCEDURE. I have examined the patient, reviewed the H&P, and there are no changes unless noted below: _ The most recent H&P/Office Note has been performed on 02/17/2022 and can be found on paper, which has been scanned into the [facility] PACS/RIS system. _ Digitally Signed by YADY BANKS PA-C on 03/07/2022 10:04 AM Digitally Signed by ROCKY ENGLISH MD on 03/07/2022 02:21 PM [id number] Discharge instructions Patient Education 01/26/2022 11:17:52 Anxiety Reaction Anxiety Reaction Anxiety is the feeling we all get when we think something bad might happen. It is a normal responseto stress and usually causes only a mild reaction. When anxiety becomes more severe, it can interfere with daily life. In some cases, you may not even be aware of what it is you re anxious about. There may also be a genetic link or it may be a learned behavior in the home. Both psychological and physical triggers cause stress reaction. It's often a response to fear or emotional stress, real or imagined. This stress may come from home, family, work, or social relationships. During an anxiety reaction, you may feel: Helpless Nervous Depressed Irritable Your body may show signs of anxiety in many ways. You may experience: Dry mouth Shakiness Dizziness Weakness Trouble breathing Breathing fast (hyperventilating) Chest pressure Sweating Headache Nausea Diarrhea Tiredness Inability to sleep Sexual problems Home care Try to locate the sources of stress in your life. They may not be obvious. These may include: oDaily hassles of life (such as traffic jams, missed appointments, or car troubles) oMajor life changes, both good (new baby or job promotion) and bad (loss of job or loss of loved one) oOverload: feeling that you have too many responsibilities and can't take care of all of them at once oFeeling helpless or feeling that your problems are beyond what you re able to solve Notice how your body reacts to stress. Learn to listen to your body signals. This will help you take action before the stress becomes severe. When you can, do something about the source of your stress. (Avoid hassles, limit the amount of change that happens in your life at one time and take a break when you feel overloaded). Unfortunately, many stressful situations can't be avoided. It is necessary to learn how to better manage stress. There are many proven methods that will reduce your anxiety. These include simple things like exercise, good nutrition, and adequate rest. Also, there are certain techniques that are helpful: oRelaxation oBreathing exercises oVisualization oBiofeedback oMeditation For more information about this, consult your healthcare provider or go to a local bookstore and review the many books and tapes available on this subject. Follow-up care If you feel that your anxiety is not responding to self-help measures, contact your healthcare provider or make an appointment with a counselor. You may need short-term psychological counseling and temporary medicine to help you manage stress. Call 911 Call 911 if any of these happen: Trouble breathing Confusion Drowsiness or trouble wakening Fainting or loss of consciousness Rapid heart rate Seizure New chest pain that becomes more severe, lasts longer, or spreads into your shoulder, arm, neck, jaw, or back When to seek medical advice Call your healthcare provider right away if any of these happen: Your symptoms get worse Severe headache not relieved by rest and mild pain reliever [id number] [employer]. [address] [place] [address]. All rights reserved. This information is not intended as a substitute for professional medical care. Always follow yourhealthcare professional's instructions. Follow Up Care 01/26/2022 11:00:39 With:[facility] Address: When:2-4 days With:PROSPER MANJARREZ DO Address: [place] [address] [phone] When:2-4 days [facility] 12-14-2022 Emergency department Discharge summary Discharge Instructions Thank you for allowing [facility] to assist you with your healthcare needs. The following is importantdischarge information regarding your hospital visit. Diagnosis from Today's Visit Anxiety Anxiety What to Do Next Instructions from Your Care Team No qualifying data available. Post Acute Orders No qualifying data available. You Need to Schedule the Following Appointments Follow Up with [facility] When Within 2-4 days Where: Follow Up with PROSPER MANJARREZ DO When Within 2-4 days Where: [address] [place], [place] [id number] [phone] Allergies penicillin (Swelling) Medications Please ask your primary doctor or pharmacist before taking any other medication not listed, including over the counter drugs, herbal medications, vitamins and or supplements as they may interact withyour home medications. What How Much When Why Instructions Last Dose New hydrOXYzine (Vistaril 25 mg oral capsule) 1 cap by mouth Four (4) times a day as needed for as needed for anxiety Anxiety Duration: 7 Days Printed Prescription Unchanged oxyCODONE (oxyCODONE 5 mg oral tablet ( IMMEDIATE release )) 1 tab(s) by mouth Every 8 hours Renal cancer Unchanged polyethylene glycol 3350 (Miralax 255 gm bottle) by mouth Once a day Unchanged senna (senna 8.6 mg oral tablet) 2 tab(s) by mouth Two (2) times a day as needed for as needed for constipation Please take this list to your next doctor s visit. Bring all medications you take, including over the counter medications, herbals and other supplements with you to your doctor s visit. Patients and families are reminded to discard old lists and to update any records with all medication providers or retail pharmacies. Education Materials Anxiety Reaction Anxiety is the feeling we all get when we think something bad might happen. It is a normal responseto stress and usually causes only a mild reaction. When anxiety becomes more severe, it can interfere with daily life. In some cases, you may not even be aware of what it is you re anxious about. There may also be a genetic link or it may be a learned behavior in the home. Both psychological and physical triggers cause stress reaction. It's often a response to fear or emotional stress, real or imagined. This stress may come from home, family, work, or social relationships. During an anxiety reaction, you may feel: Helpless Nervous Depressed Irritable Your body may show signs of anxiety in many ways. You may experience: Dry mouth Shakiness Dizziness Weakness Trouble breathing Breathing fast (hyperventilating) Chest pressure Sweating Headache Nausea Diarrhea Tiredness Inability to sleep Sexual problems Home care Try to locate the sources of stress in your life. They may not be obvious. These may include: oDaily hassles of life (such as traffic jams, missed appointments, or car troubles) oMajor life changes, both good (new baby or job promotion) and bad (loss of job or loss of loved one) oOverload: feeling that you have too many responsibilities and can't take care of all of them at once oFeeling helpless or feeling that your problems are beyond what you re able to solve Notice how your body reacts to stress. Learn to listen to your body signals. This will help you take action before the stress becomes severe. When you can, do something about the source of your stress. (Avoid hassles, limit the amount of change that happens in your life at one time and take a break when you feel overloaded). Unfortunately, many stressful situations can't be avoided. It is necessary to learn how to better manage stress. There are many proven methods that will reduce your anxiety. These include simple things like exercise, good nutrition, and adequate rest. Also, there are certain techniques that are helpful: oRelaxation oBreathing exercises oVisualization oBiofeedback oMeditation For more information about this, consult your healthcare provider or go to a local bookstore and review the many books and tapes available on this subject. Follow-up care If you feel that your anxiety is not responding to self-help measures, contact your healthcare provider or make an appointment with a counselor. You may need short-term psychological counseling and temporary medicine to help you manage stress. Call 911 Call 911 if any of these happen: Trouble breathing Confusion Drowsiness or trouble wakening Fainting or loss of consciousness Rapid heart rate Seizure New chest pain that becomes more severe, lasts longer, or spreads into your shoulder, arm, neck, jaw, or back When to seek medical advice Call your healthcare provider right away if any of these happen: Your symptoms get worse Severe headache not relieved by rest and mild pain reliever [phone] [employer]. [address] [place] [address]. All rights reserved. This information is not intended as a substitute for professional medical care. Always follow yourhealthcare professional's instructions. Additional Information VACCINATE! IT SAVES LIVES! Members of the community who have not yet received the COVID-19 vaccine and would like to receive it can visit one of [facility] vaccine clinics. There are many vaccine clinic locations within the [facility]. For locations and available times, please visit [email or web address]. It is important to note that some COVID mobile vaccine clinics are held outdoors and may be canceled in rainy orstormy conditions. To learn more about pediatric vaccinations (ages 5-11), we invite you to visit the [facility] webpage. [email or web address]/pages/[email or web address]-[email or web address] stions.htmlTo learn more about the COVID-19 vaccine, we invite you to visit the [employer] website for a list of frequently asked questions. https://[facility] [facility]/assets/Qvgkrlog-[email or web address]-Armnbqeg/[email or web address]-[email or web address]-Zopbuknblz _Asked-Questions.pdf [facility] Patient [facility] Access Instructions: Stay connected with your healthcare team and access your personal medical information anytime with the [facility] Patient Portal. If you would like a full copy of your medical records please contact the [facility] Medical Records Department Monday through Monday between 8a.m. and 4:30p.m. Please follow the directions below to access the portal: 1.Access the email account you provided upon registration to the [facility].2.Look for an invitation email from [facility].3.Open the email and access the invitation link: Accept Invitation to [facility]4.Fill in the required delaney to create your account. Sign into [email or web address] with your username and password that you created in the above steps to stay up to date. You can then view a summary of results, a summary of your visits, and the ability to download your summaries to your computer or send the information securely to a physician. Remember that your healthcare information is confidential, so carefully consider who you will allow to register on the [facility] [employer] Patient Portal for access to your information. You can also access the [employer] Patient Portal on the [employer] julia. Simply click on "Health Records" under "HealthData" and then click on the [employer] logo. HOW TO SAFELY DISPOSE OF PRESCRIPTION MEDICATIONS Please use one of the following methods to safely dispose of your unused medications. 1.Use a drug disposal kit: the drug disposal pouch allows you to safely discard your old and unuseddrugs. Ask your nurse to give you one when you are discharged.2.Visit a local take-back location: Many local pharmacies and police departments have programs that collect old and unwanted prescriptiondrugs. Call your local pharmacy or go to http://bit.Oddslife/1P5Zv6l to find one close to you.3.Make use of household items: Use cat litter or old coffee grounds to dispose medications if other options arenot available. Mix your drugs with these household products, seal them in an airtight container andthrow it into the garbage. Call [facility]: [phone] to be sure your drugs can be disposed of in this way. Some medicines may require a different approach.4.Never flush your medications down the toilet. IF YOU HAVE BEEN PRESCRIBED AN OPIOIDS FOR PAIN If you have been prescribed an opioid (such as hydrocodone, oxycodone or morphine), it is critical to understand the possible side effects and risks of opioid pain medications. Even when taken as directed, opioids can have several side effects including: Tolerance, meaning you might need to take more of a medication for the same pain relief. Nausea, vomiting and/or constipation. Sleepiness, dizziness, dry mouth, confusion, depression or itching. Physical dependence, meaning you have withdrawal symptoms when a medication is stopped ? this can develop within a few days. KNOW YOUR RESPONSIBILITIES It is important to know exactly how much and how often to take the opioid pain medications you are prescribed. Never take opioids in higher amounts or more often than prescribed. Do not combine opioids with alcohol or other drugs that cause drowsiness, such as benzodiazepines, also known as benzos,including diazepam and alprazolam, muscle relaxants or sleep aids. Never sell or share prescriptionopioids. This is illegal. Store opioids in a secure place and out of reach of others (including children, family, friends and visitors). The last page(s) of this document has been signed and retained as a CHART COPY Signatures Patient Education Materials Anxiety Reaction Medication Leaflets My discharge plan and instructions have been reviewed and explained to me and IJESSICA DAVID D understand my current condition and have read and understand these discharge instructions. I have received a written copy of the plan/instructions. If I have questions, I am aware that I should contact my doctor. 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 9.6-cm. With perinephric fat invasion. With lytic bony lesion and pulmonary nodules concerning for mets. BS, 07/2020 - neg. CT brain, 07/2020 - neg. S/P Radical nephrectomy 08/14/20. Metastatic renal cell carcinoma. S/P Left cytoreductive nephrectomy 08/14/20. Final path - ccRCC withsarcomatoid features. 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 Tests Performed .Auto Differential .Estimated Glomerular Filtration Rate .Neutro Absolute BMP w/ Ionized Calcium ([facility]) CBC Cortisol Drawn in AM Free T3 Free T4 Hepatic Function Panel ([facility]) LDH TSH Your Care Team Attending Physician - BHAVIK TRIANA MD Primary Care Physician - PROSPER MANJARREZ DO Vitals Temperature (Oral) 36.4 C Heart Rate 77 Blood Pressure 150/88 Height 172.7 cm Weight 167 kg BMI 55.99 What to do next Instructions From Your Doctor You have received the following therapy today: Chemotherapy/Immunotherapy Call your physician if any of the following problems occur: Nausea/Vomiting Mouth Sores Diarrhea Fever Prolonged bleeding or easy bruising Pain or discomfort at the injection site Scheduled Follow-Up Appointments Appointment Type When With Where Contact InformationTelephone 02/03/2022 02:30 PM LIAN MINER MD Palliative Care INF Labwork 02/17/2022 09:15 AM EST Infusion Therapy HEM ONC OV Follow Up w/Active Treatment 02/17/2022 10:00 AM BHAVIK SWAN MD Hematology and Oncology INF Chemo: Infusion 120 min (2 hours) 02/17/2022 10:30 AM EST Infusion Therapy yyCT Abdomen and Pelvis w/ Contrast 3 03/03/2022 10:30 AM [facility] yyCT Chest w/ Contrast 3 03/03/2022 11:00 AM [facility] Medications What How Much When Why Instructions Unchanged oxyCODONE (oxyCODONE 5 mg oral tablet ( IMMEDIATE release )) 1 tab(s) by mouth Every 8 hours Renal cancer Unchanged polyethylene glycol 3350 (Miralax 255 gm bottle) by mouth Once a day Unchanged senna (senna 8.6 mg oral tablet) 2 tab(s) by mouth Two (2) times a day as needed for as needed for constipation Test Results .Auto Differential (01/20/2022) Neutrophil % - 66.7 % Lymphocyte % - 18.3 % Monocyte % - 6.8 % Eosinophil % - 7.8 % Basophil % - 0.2 % Lymphocyte, Absolute - 1.6 10^3/mcL Monocyte, Absolute - 0.6 10^3/mcL Eosinophil, Absolute - 0.710^3/mcL Basophil, Absolute - 0.0 10^3/mcL .Estimated Glomerular Filtration Rate (01/20/2022) GFR Non- - >60 ml/min/1.73sqm GFR - >60 ml/min/1.73sqm .Neutro Absolute (01/20/2022) Neutrophil, Absolute - 5.9 10^3/mcL BMP w/ Ionized Calcium ([facility]) (01/20/2022) Glucose Level - 110 mg/dL Sodium Level - 131 mEq/L Potassium Level - 4.6 mEq/L Chloride - 101 mEq/LCO2 - 23 mEq/L Electrolyte Balance - 7.0 mEq/L BUN - 15.4 mg/dL Creatinine Lvl (s) - 1.22 mg/dL BUN/Creatinine Ratio - 12.6 ratio Calcium Ionized - 1.13 mmol/L CBC (01/20/2022) WBC - 8.8 10^3/mcL RBC - 5.06 10^6/mcL Hgb - 17.0 G/dL Hct - 50.7 % MCV - 100.1 fL MCH - 33.8 pg MCHC - 33.7 G/dL RDW - 14.4 % Platelet - 198 10^3/mcL MPV - 7.3 fL Cortisol Drawn in AM (01/20/2022) Cortisol, AM - 14.0 mcg/dL Free T3 (01/20/2022) Free T3 - 4.32 pg/mL Free T4 (01/20/2022) Free T4 - 1.07 ng/dL Hepatic Function Panel ([facility]) (01/20/2022) Total Protein - 6.8 G/dL Albumin Level - 3.3 G/dL Globulin - 3.5 G/dL A/G Ratio - 0.9 ratio Bili Total - 0.60 mg/dL Bili Direct - 0.2 mg/dL Bili Indirect - 0.4 mg/dL Alk Phos - 86 U/L AST/SGOT - 27 U/L ALT/SGPT - 34 U/L LDH (01/20/2022) LDH - 203 U/L TSH (01/20/2022) TSH - 2.745 mIU/mL Allergies penicillin (Swelling) Additional Information VACCINATE! IT SAVES LIVES! Members of the community who have not yet received the COVID-19 vaccine and would like to receive it can visit one of [facility] vaccine clinics. There are many vaccine clinic locations within the [facility]. For locations and available times, please visit [email or web address]. It is important to note that some COVID mobile vaccine clinics are held outdoors and may be canceled in rainy orstormy conditions. To learn more about pediatric vaccinations (ages 5-11), we invite you to visit the [facility] webpage. https://[email or web address] [email or web address]/pages/[email or web address]-Oaswa-Uhfmvclaemo-Merkdiigem-Rfyem-Mid stions.htmlTo learn more about the COVID-19 vaccine, we invite you to visit the [facility] website for a list of frequently asked questions. [email or web address]-[email or web address]/rmshb-Ivmqdeo-Muispezncd _Asked-Questions.pdf [facility] [employer] Patient Portal Access Instructions: Stay connected with your healthcare team and access your personal medical information anytime with the [facility] Patient Portal.If you would like a full copy of your medical records, please contact the [facility] Medical Records Department, Monday through Monday between 8a.m. and 4:30p.m. Please follow the directions below to access the portal: 1.Access the email account you provided upon registration to the [facility].2.Look for an invitation email from [facility].3.Open the email and access the invitation link: Accept Invitation to [facility].Fill in the required delaney to create your account. Sign into [email or web address] with your username and password that you created in the above steps to stay up to date. You can then view a summary of results, a summary of your visits, and the ability to download your summaries to your computer or send the information securely to a physician. Remember that your healthcare information is confidential, so carefully consider who you will allow to register on the [facility] Patient Portal for access to your information. You can also access the [facility] Patient Portal on the [facility]. Simply click on "Health Records" under "HealthData" and then click on the [employer] logo. HOW TO SAFELY DISPOSE OF PRESCRIPTION MEDICATIONS Please use one of the following methods to safely dispose of your unused medications. 1.Use a drug disposal kit: the drug disposal pouch allows you to safely discard your old and unuseddrugs. Ask your nurse to give you one when you are discharged.2.Visit a local take-back location: Many local pharmacies and police departments have programs that collect old and unwanted prescriptiondrugs. Call your local pharmacy or go to http://Huan Xiong.Oddslife/0J9By8b to find one close to you.3.Make use of household items: Use cat litter or old coffee grounds to dispose medications if other options arenot available. Mix your drugs with these household products, seal them in an airtight container andthrow it into the garbage. Call [facility]: [phone] to be sure your drugs can be disposed of in this way. Some medicines may require a different approach.4.Never flush your medications down the toilet. IF YOU HAVE BEEN PRESCRIBED AN OPIOID FOR PAIN If you have been prescribed an opioid (such as hydrocodone, oxycodone or morphine), it is critical to understand the possible side effects and risks of opioid pain medications. Even when taken as directed, opioids can have several side effects including: Tolerance, meaning you might need to take more of a medication for the same pain relief. Nausea, vomiting and/or constipation. Sleepiness, dizziness, dry mouth, confusion, depression or itching. Physical dependence, meaning you have withdrawal symptoms when a medication is stopped, can develop within a few days. KNOW YOUR RESPONSIBILITIES It is important to know exactly how much and how often to take the opioid pain medications you are prescribed. Never take opioids in higher amounts or more often than prescribed. Do not combine opioids with alcohol or other drugs that cause drowsiness, such as benzodiazepines, also known as benzos, including diazepam and alprazolam, muscle relaxants or sleep aids. Never sell or share prescription opioids. This is illegal. Store opioids in a secure place and out of reach of others (including children, family, friends and visitors). The last page of this document has been signed and retained as a CHART COPY. Signatures Patient Education Materials Medication Leaflets My discharge plan and instructions have been reviewed and explained to me and I,LYNDSAY LOPEZ understand my current condition and have read and understand these discharge instructions. I have received a written copy of the plan/instructions. If I have questions, I am aware that I should contact my doctor. 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 S/P Left cytoreductive nephrectomy 08/14/20. Final path - ccRCC withsarcomatoid features. Other care home (current) drug therapy Tests Performed .Auto Differential .Estimated Glomerular Filtration Rate .Morphology .Neutro Absolute BMP w/ Ionized Calcium ([facility]) CBC Cortisol Drawn in AM Free T3 Free T4 Hepatic Function Panel LDH TSH Your Care Team Attending Physician - BHAVIK TRIANA MD Primary Care Physician - PROSPER MANJARREZ DO Vitals Temperature (Oral) 36.7 C Heart Rate (Apical) 76 Blood Pressure 137/91 Height 172.7 cm Weight 164.1 kg BMI 55.02 What to do next Scheduled Follow-Up Appointments Appointment Type When With Where Contact Information OV 12/29/2021 10:30 AM PROSPER CORCORAN DO [address] [id number] HEM ONC OV Follow Up w/Active Treatment 01/20/2022 09:15 AM BHAVIK SWAN MD Hematology and Oncology Follow Up Appointments Follow Up with Call Physician Referral When Medications What How Much When Why Instructions Unchanged meloxicam (meloxicam 15 mg oral tablet) 1 tab(s) by mouth Once a day Arthropathy of right shoulder Unchanged oxyCODONE (oxyCODONE 5 mg oral tablet ( IMMEDIATE release )) 1 tab(s) by mouth Every 8 hours Renal cancer Unchanged senna (senna 8.6 mg oral tablet) 2 tab(s) by mouth Two (2) times a day as needed for as needed for constipation Test Results .Auto Differential (12/23/2021) Neutrophil % - 66.0 % Lymphocyte % - 17.6 % Monocyte % - 7.0 % Eosinophil % - 8.8 % Basophil % - 0.3 % Lymphocyte, Absolute - 1.6 10^3/mcL Monocyte, Absolute - 0.6 10^3/mcL Eosinophil, Absolute - 0.810^3/mcL Basophil, Absolute - 0.0 10^3/mcL .Estimated Glomerular Filtration Rate (12/23/2021) GFR Non- - 53 ml/min/1.73sqm GFR - >60 ml/min/1.73sqm .Morphology (12/23/2021) RBC Morph - See Notes RBC Morph - See Notes Platelet Estimate - Adequate .Neutro Absolute (12/23/2021) Neutrophil, Absolute - 6.1 10^3/mcL BMP w/ Ionized Calcium ([facility]) (12/23/2021) Glucose Level - 107 mg/dL Sodium Level - 130 mEq/L Potassium Level - 5.0 mEq/L Chloride - 100 mEq/LCO2 - 21 mEq/L Electrolyte Balance - 9.0 mEq/L BUN - 15.2 mg/dL Creatinine Lvl (s) - 1.47 mg/dL BUN/Creatinine Ratio - 10.3 ratio Calcium Ionized - 1.08 mmol/L CBC (12/23/2021) WBC - 9.2 10^3/mcL RBC - 5.08 10^6/mcL Hgb - 17.2 G/dL Hct - 50.4 % MCV - 99.3 fL MCH - 33.9 pg MCHC - 34.1 G/dL RDW - 14.2 % Platelet - 198 10^3/mcL MPV - 7.1 fL Cortisol Drawn in AM (12/23/2021) Cortisol, AM - 10.2 mcg/dL Free T3 (12/23/2021) Free T3 - 3.80 pg/mL Free T4 (12/23/2021) Free T4 - 1.10 ng/dL Hepatic Function Panel (12/23/2021) Total Protein - 6.5 G/dL Albumin Level - 3.2 G/dL Globulin - 3.3 G/dL A/G Ratio - 1.0 ratio Bili Total - 0.50 mg/dL Bili Direct - 0.2 mg/dL Bili Indirect - 0.3 mg/dL Alk Phos - 90 U/L AST/SGOT - 21 U/L ALT/SGPT - 30 U/L LDH (12/23/2021) LDH - 194 U/L TSH (12/23/2021) TSH - 2.139 mIU/mL Allergies penicillin (Swelling) Signatures Patient Education Materials Medication Leaflets My discharge plan and instructions have been reviewed and explained to me and IJESSICA DAVID D understand my current condition and have read and understand these discharge instructions. I have received a written copy of the plan/instructions. If I have questions, I am aware that I should contact my doctor. Patient/Record Keeper Signature: Date/Time: Relationship to Patient: Witness Name/Signature: Date/Time[id number] Discharge instructions Follow Up Care 11/25/2021 14:49:17 With:Call Physician Referral Address:Unknown When: Unknown [facility] 08-10-2022 Summary of episode note Discharge Instructions Thank you for allowing [facility] to assist you with your healthcare needs. The following is importantdischarge information regarding your hospital visit. 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 S/P Left cytoreductive nephrectomy 08/14/20. Final path - ccRCC withsarcomatoid features., Metastatic renal cell carcinoma. S/P Left cytoreductive nephrectomy 08/14/20. 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., Metastatic renal cell carcinoma. S/P Left cytoreductive nephrectomy 08/14/20. 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., Metastatic renal cell carcinoma. S/P Left cytoreductive nephrectomy 08/14/20. 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., Metastatic renal cell carcinoma. S/P Left cytoreductive nephrectomy 08/14/20. 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 Other care home (current) drug therapy, Other care home (current) drug therapy, Other care home (current) drug therapy, Other care home (current) drug therapy, Other care home (current) drug therapy What to do next Instructions From Your Doctor You have received the following therapy today: Chemotherapy/Immunotherapy Call your physician if any of the following problems occur: Nausea/Vomiting Mouth Sores Diarrhea Fever Prolonged bleeding or easy bruising Pain or discomfort at the injection site Scheduled Follow-Up Appointments Appointment Type When With Where Contact InformationHEM ONC OV Follow Up w/Active Treatment 10/20/2021 09:15 AM BHAVIK ZAPATA MD Hematology and Oncology PALL OV Follow Up 11/03/2021 11:00 AM LIAN COVINGTON MD Palliative Care The Following Activity and Diet Have Been Ordered for You No qualifying data available. No qualifying data available. The Following Equipment Has Been Ordered for You No qualifying data available. The Following Treatments Have Been Ordered for You Discharge Labs No qualifying data available. Discharge Radiology No qualifying data available. Other Therapies No qualifying data available. Post Acute Orders No qualifying data available. Someone Will Contact You Regarding These Home Health Referrals No home referrals have been ordered for you. No one will call you. Allergies penicillin (Swelling) Medications Please ask your primary doctor or pharmacist before taking any other medication not listed, including over the counter drugs, herbal medications, vitamins and or supplements as they may interact withyour home medications. What How Much When Why Instructions Last Dose Unchanged oxyCODONE (oxyCODONE 5 mg oral tablet ( IMMEDIATE release )) 1 tab(s) by mouth Every 8 hours Renal cancer Unchanged senna (senna 8.6 mg oral tablet) 2 tab(s) by mouth Two (2) times a day as needed for as needed for constipation Please take this list to your next doctor s visit. Bring all medications you take, including over the counter medications, herbals and other supplements with you to your doctor s visit. Patients and families are reminded to discard old lists and to update any records with all medication providers or retail pharmacies. Additional Information VACCINATE! IT SAVES LIVES! Members of the community who have not yet received the COVID-19 vaccine and would like to receive it can visit one of [facility] vaccine clinics. There are many vaccine clinic locations within the [facility]. For locations and available times, please visit [email or web address]/. It is important to note that some COVID mobile vaccine clinics are held outdoors and may be canceled in rainy or stormy conditions. To learn more about pediatric vaccinations (ages 5-11), we invite you to visit the [facility] webpage. https://www.[email or web address]/pages/9985-Moqde-Zuofnyabdhk-Ilgmzlpzhs-Apgmm-Sls stions.htmlTo learn more about the COVID-19 vaccine, we invite you to visit the [facility] website for a list of frequently asked questions. [email or web address]-[email or web address]/[email or web address]-Slyodtq-Wuithbromb _Asked-Questions.pdf [facility] [employer] Patient Portal Access Instructions: Stay connected with your healthcare team and access your personal medical information anytime with the [facility] [employer] Patient Portal.If you would like a full copy of your medical records, please contact the [facility] Medical Records Department, Monday through Monday between 8a.m. and 4:30p.m. Please follow the directions below to access the portal: 1.Access the email account you provided upon registration to the [facility].2.Look for an invitation email from [facility].3.Open the email and access the invitation link: Accept Invitation to [facility].Fill in the required delaney to create your account. Sign into [email or web address] with your username and password that you created in the above steps to stay up to date. You can then view a summary of results, a summary of your visits, and the ability to download your summaries to your computer or send the information securely to a physician. Remember that your healthcare information is confidential, so carefully consider who you will allow to register on the [facility] Patient Portal for access to your information. You can also access the [facility] Patient Portal on the [employer]. Simply click on "Health Records" under "[employer]" and then click on the [employer] logo. HOW TO SAFELY DISPOSE OF PRESCRIPTION MEDICATIONS Please use one of the following methods to safely dispose of your unused medications. 1.Use a drug disposal kit: the drug disposal pouch allows you to safely discard your old and unuseddrugs. Ask your nurse to give you one when you are discharged.2.Visit a local take-back location: Many local pharmacies and police departments have programs that collect old and unwanted prescriptiondrugs. Call your local pharmacy or go to http://Huan Xiong.Oddslife/1K2Qx5s to find one close to you.3.Make use of household items: Use cat litter or old coffee grounds to dispose medications if other options arenot available. Mix your drugs with these household products, seal them in an airtight container andthrow it into the garbage. Call [facility]: [phone] to be sure your drugs can be disposed of in this way. Some medicines may require a different approach.4.Never flush your medications down the toilet. IF YOU HAVE BEEN PRESCRIBED AN OPIOID FOR PAIN If you have been prescribed an opioid (such as hydrocodone, oxycodone or morphine), it is critical to understand the possible side effects and risks of opioid pain medications. Even when taken as directed, opioids can have several side effects including: Tolerance, meaning you might need to take more of a medication for the same pain relief. Nausea, vomiting and/or constipation. Sleepiness, dizziness, dry mouth, confusion, depression or itching. Physical dependence, meaning you have withdrawal symptoms when a medication is stopped, can develop within a few days. KNOW YOUR RESPONSIBILITIES It is important to know exactly how much and how often to take the opioid pain medications you are prescribed. Never take opioids in higher amounts or more often than prescribed. Do not combine opioids with alcohol or other drugs that cause drowsiness, such as benzodiazepines, also known as benzos, including diazepam and alprazolam, muscle relaxants or sleep aids. Never sell or share prescription opioids. This is illegal. Store opioids in a secure place and out of reach of others (including children, family, friends and visitors). The last page of this document has been signed and retained as a CHART COPY. Signatures Patient Education Materials Medication Leaflets My discharge plan and instructions have been reviewed and explained to me and IJESSICA DAVID D understand my current condition and have read and understand these discharge instructions. I have received a written copy of the plan/instructions. If I have questions, I am aware that I should contact my doctor. Patient/Record Keeper Signature: Date/Time: Relationship to Patient: Witness Name/Signature: Date/Time: [id number] Note ORIGINAL EXAMINATION: CT OF THE ABDOMEN AND PELVIS WITH CONTRAST TECHNIQUE: CT of the abdomen and pelvis was performed with the administration of intravenous contrast. Multiplanar reformatted images are provided for review. Automated exposure control, iterative reconstruction, and/or weight based adjustment of the mA/kV was utilized to reduce the radiation dose to as low as reasonably achievable. COMPARISON: 03/09/2021. HISTORY: ORDERING SYSTEM PROVIDED HISTORY: Reason for Exam: monitor for progression FINDINGS: Recist 1.1: POTENTIAL TARGET TUMOR LESIONS (maximum 5 lesions, maximum 2 per organ, longest dimension in axial plane reported, >10 mm, reproducible lesions): None POTENTIAL TARGET LYMPH NODES (>15 mm short axis, maximum 2): None NONTARGET LESIONS (Definite tumor lesions, lymph nodes 10-14 mm short axis, immeasurable lesions such as lymphangitic involvement, ascites, pleural effusions, etc.): None Same day CT chest is reported separately. Exam is limited due to body habitus. Sclerotic lesion seen within the T11 vertebral body is stable and described on same day CT chest. Liver is unremarkable. The gallbladder is normal. The spleen, adrenal glands, and pancreas are unremarkable. Patient is status post left simple nephrectomy. No abnormal enhancing soft tissue within the surgical site. The right kidney is unremarkable. Nonaneurysmal abdominal aorta. No retroperitoneal lymphadenopathy. There is a borderline omaira hepatis lymph node measuring 10 mm, which is considered normal in size for given location. There is a posterolateral wall hernia. Descending and transverse colon are seen in the hernia sac without fluid collection or inflammatory changes to suggest obstruction. The appendix is visualized and normal. The small bowel is unremarkable. No pelvic lymphadenopathy or free fluid identified. The bladder is collapsed limiting its evaluation. The prostate is unremarkable. IMPRESSION: No residual, recurrent, or new metastatic disease on today's study. I have personally reviewed the images of this examination, agree with resident's findings and interpretation. Interpreted by: Rachell Dennis MD Preliminary Report By: Trenton Cannon Electronically signed By Rachell Dennis MD Dictated Date: 09/15/2021 2:52:01 PM Prelim Date: 09/15/2021 4:15:11 PM Sign Date: 09/15/2021 4:15:11 PM Ordering Provider: [facility]08-03-2022 Note ORIGINAL EXAMINATION: CT OF THE CHEST WITH CONTRAST 09/15/2021 9:44 am TECHNIQUE: CT of the chest was performed with the administration of intravenous contrast. Multiplanar reformatted images are provided for review. Automated exposure control, iterative reconstruction, and/or weight based adjustment of the mA/kV was utilized to reduce the radiation dose to as low as reasonably achievable. COMPARISON: April 28, 2021 HISTORY: ORDERING SYSTEM PROVIDED HISTORY: Reason for Exam: monitor for progression Renal cancer FINDINGS: Recist 1.1: POTENTIAL TARGET TUMOR LESIONS (maximum 5 lesions, maximum 2 per organ, longest dimension in axial plane reported, >10 mm, reproducible lesions): None POTENTIAL TARGET LYMPH NODES (>15 mm short axis, maximum 2): None NONTARGET LESIONS (Definite tumor lesions, lymph nodes 10-14 mm short axis, immeasurable lesions such as lymphangitic involvement, ascites, pleural effusions, etc.): T11 bone lesion similar to prior exam, with pathologic fracture. A lesion is again evident within T11 with some pathologic compression deformity. These findings are similar to the previous exam. Degenerative changes are noted in the spine. No other osseous lesion. No focal area of consolidation is evident and there is no pleural fluid seen. No mediastinal adenopathy seen. Bilateral gynecomastia noted. No additional contributory finding. IMPRESSION: Stable T11 lesion since prior exam. No new area of disease seen. Interpreted by: Rachell Dennis MD Preliminary Report By: Rachell Dennis MD Electronically signed By Rachell Dennis MD Dictated Date: 09/15/2021 2:45:44 PM Prelim Date: 09/15/2021 2:49:24 PM Sign Date: 09/15/2021 2:49:24 PM Ordering Provider: [facility]08-03-2022 Note ORIGINAL EXAMINATION: CT OF THE ABDOMEN AND PELVIS WITH CONTRAST TECHNIQUE: CT of the abdomen and pelvis was performed with the administration of intravenous contrast. Multiplanar reformatted images are provided for review. Automated exposure control, iterative reconstruction, and/or weight based adjustment of the mA/kV was utilized to reduce the radiation dose to as low as reasonably achievable. COMPARISON: 03/09/2021. HISTORY: ORDERING SYSTEM PROVIDED HISTORY: Reason for Exam: monitor for progression FINDINGS: Recist 1.1: POTENTIAL TARGET TUMOR LESIONS (maximum 5 lesions, maximum 2 per organ, longest dimension in axial plane reported, >10 mm, reproducible lesions): None POTENTIAL TARGET LYMPH NODES (>15 mm short axis, maximum 2): None NONTARGET LESIONS (Definite tumor lesions, lymph nodes 10-14 mm short axis, immeasurable lesions such as lymphangitic involvement, ascites, pleural effusions, etc.): None Same day CT chest is reported separately. Exam is limited due to body habitus. Sclerotic lesion seen within the T11 vertebral body is stable and described on same day CT chest. Liver is unremarkable. The gallbladder is normal. The spleen, adrenal glands, and pancreas are unremarkable. Patient is status post left simple nephrectomy. No abnormal enhancing soft tissue within the surgical site. The right kidney is unremarkable. Nonaneurysmal abdominal aorta. No retroperitoneal lymphadenopathy. There is a borderline omaira hepatis lymph node measuring 10 mm, which is considered normal in size for given location. There is a posterolateral wall hernia. Descending and transverse colon are seen in the hernia sac without fluid collection or inflammatory changes to suggest obstruction. The appendix is visualized and normal. The small bowel is unremarkable. No pelvic lymphadenopathy or free fluid identified. The bladder is collapsed limiting its evaluation. The prostate is unremarkable. IMPRESSION: No residual, recurrent, or new metastatic disease on today's study. I have personally reviewed the images of this examination, agree with resident's findings and interpretation. Interpreted by: Rachell Dennis MD Preliminary Report By: Trenton Cannon Electronically signed By Rachell Dennis MD Dictated Date: 09/15/2021 2:52:01 PM Prelim Date: 09/15/2021 4:15:11 PM Sign Date: 09/15/2021 4:15:11 PM Ordering Provider: [place] [id number] Note ORIGINAL EXAMINATION: CT OF THE CHEST WITH CONTRAST 09/15/2021 9:44 am TECHNIQUE: CT of the chest was performed with the administration of intravenous contrast. Multiplanar reformatted images are provided for review. Automated exposure control, iterative reconstruction, and/or weight based adjustment of the mA/kV was utilized to reduce the radiation dose to as low as reasonably achievable. COMPARISON: April 28, 2021 HISTORY: ORDERING SYSTEM PROVIDED HISTORY: Reason for Exam: monitor for progression Renal cancer FINDINGS: Recist 1.1: POTENTIAL TARGET TUMOR LESIONS (maximum 5 lesions, maximum 2 per organ, longest dimension in axial plane reported, >10 mm, reproducible lesions): None POTENTIAL TARGET LYMPH NODES (>15 mm short axis, maximum 2): None NONTARGET LESIONS (Definite tumor lesions, lymph nodes 10-14 mm short axis, immeasurable lesions such as lymphangitic involvement, ascites, pleural effusions, etc.): T11 bone lesion similar to prior exam, with pathologic fracture. A lesion is again evident within T11 with some pathologic compression deformity. These findings are similar to the previous exam. Degenerative changes are noted in the spine. No other osseous lesion. No focal area of consolidation is evident and there is no pleural fluid seen. No mediastinal adenopathy seen. Bilateral gynecomastia noted. No additional contributory finding. IMPRESSION: Stable T11 lesion since prior exam. No new area of disease seen. Interpreted by: Rachell Dennis MD Preliminary Report By: Rachell Dennis MD Electronically signed By Rachell Dennis MD Dictated Date: 09/15/2021 2:45:44 PM Prelim Date: 09/15/2021 2:49:24 PM Sign Date: 09/15/2021 2:49:24 PM Ordering Provider: [facility] [id number] Hospital Discharge instructions Patient Education 08/03/2021 11:29:20 Dental Abscess Dental Abscess An abscess is a pocket of pus at the tip of a tooth root in your jaw bone. It is caused by an infection at the root of the tooth. It can cause pain and swelling of the gum, cheek, or jaw. Pain may spread from the tooth to your ear or the area of your jaw on the same side. If the abscess isn t treated, it appears as a bubble or swelling on the gum near the tooth. The pressure that builds in this swelling is the source of the pain. More serious infections cause your face to swell. An abscess can be caused by a crack in the tooth, a cavity, a gum infection, or a combination of these. Once the pulp of the tooth is exposed, bacteria can spread down the roots to the tip. If the bacteria are not stopped, they can damage the bone and soft tissue, and an abscess can form. Home care Follow these guidelines when caring for yourself at home: Don't have hot and cold foods and drinks. Your tooth may be sensitive to changes in temperature. Don t chew on the side of the infected tooth. If your tooth is chipped or cracked, or if there is a large open cavity, put oil of cloves directlyon the tooth to relieve pain. You can buy oil of cloves at drugstores. Some pharmacies carry an fcin-wsd-qeqtkew "toothache kit." This contains a paste that you can put on the exposed tooth to make it less sensitive. Put a cold pack on your jaw over the sore area to help reduce pain. You may use qyww-byh-htqgbgc medicine to ease pain, unless another medicine was prescribed. If you have chronic liver or kidney disease, talk with your healthcare provider before using acetaminophen or ibuprofen. Also talk with your provider if you ve had a stomach ulcer or GI bleeding. An antibiotic will be prescribed. Take it until finished, even if you are feeling better after a few days. Follow-up care Follow up with your dentist or an oral surgeon, or as advised. Once an infection occurs in a tooth,it will continue to be a problem until the infection is drained. This is done through surgery or a root canal. Or you may need to have your tooth pulled. Call 911 Call 911 if any of these occur: Unusual drowsiness Headache or stiff neck Weakness or fainting Difficulty swallowing, breathing, or opening your mouth Swollen eyelids When to seek medical advice Call your healthcare provider right away if any of these occur: Your face becomes more swollen or red Pain gets worse or spreads to your neck Fever of 100.4 F (38.0 C) or higher, or as directed by your healthcare provider Pus drains from the tooth [id number] [employer]. [address] [place] [address]. All rights reserved. This information is not intended as a substitute for professional medical care. Always follow yourhealthcare professional's instructions. Follow Up Care 08/03/2021 11:16:56 With:Dr. Iniguez Address: [phone] When:2-4 days [facility] Anesthesiology Consult note* MAR BERNARD MD: PERFORM, SIGN, VERIFY, SIGN Event Display: Anesthesiology Consultation Authored Date: Patient: LYNDSAY LOPEZ Age: 42 years Sex: Male : 1980 Associated Diagnoses: None Author: MAR BERNARD MD Preoperative Information Greater than 8 hours Anesthesia history Patient's history: negative. Family's history: negative. History of Present Illness Multiple medical problems and recent pulmonary embolism for BONNIE/Cardioversion Review of Systems Ear/Nose/Mouth/Throat: See Problem List. Respiratory: See Problem List. Cardiovascular: See Problem List. Gastrointestinal: See Problem List. Genitourinary: See Problem List. Endocrine: See Problem List. Musculoskeletal: See Problem List. Integumentary: See Problem List. Neurologic: See Problem List. See problem list and procedure results for specifics. Health Status Allergies: Allergic Reactions (Selected) Severity Not Documented Penicillin- Swelling., Allergies (1) ActiveReaction penicillinSwelling Current medications: (Selected) Inpatient Medications Ordered Biofreeze gel packet: 1 julia, Topical, qDay D51/2NS 1,000 mL: 20 mL/hr, Intravenous Lopressor: 100 mg, 1 tab(s), Oral, q8h Miralax Powder Packet: 17 gram(s), 15 mL, Oral, BID, PRN: Constipation Nicoderm C-Q 14 mg/24 hr transdermal film, extended release: 14 mg, 1 patch(es), Transdermal, q24h Tylenol: 650 mg, 2 tab(s), Oral, q4h, PRN: Pain, scale 1-3 Zofran: 4 mg, 2 mL, IV Push, q4h, PRN: Nausea/Vomiting apixaban: 5 mg, 1 tab(s), Oral, BID lidocaine (lidocaine Patch REMOVAL): 1 EA, Miscellaneous, q24h lidocaine 1% preservative-free injectable solution: 2.5 mg, 0.25 mL, Intradermal, prep pharm lidocaine 4% topical patch: 1 patch(es), Transdermal, q24h melatonin: 5 mg, 1 tab(s), Oral, qHS, PRN: Sleep miconazole 2% topical powder: 1 julia, Topical, BID nicotine (Nicoderm Patch REMOVAL): 1 EA, Miscellaneous, q24h oxyCODONE 5 mg oral tablet ( IMMEDIATE release ): 10 mg, 2 tab(s), Oral, q4h, PRN: Pain, scale 7-10 oxyCODONE 5 mg oral tablet ( IMMEDIATE release ): 5 mg, 1 tab(s), Oral, q4h, PRN: Pain, scale 4-6 senna: 8.6 mg, 1 tab(s), Oral, qDay, PRN: Constipation Future EPINEPHrine 1 mg/mL injectable solution: 0.3 mg, 0.3 mL, Intramuscular INF, Once, Day 1, PRN: Other(see order comments) NS 1000 mL Bolus: 1,000 mL, IV Bolus, Once, Day 1, PRN: Other (see order comments) Zero Time Placeholder: None, Day of Tx, Day 1 diphenhydrAMINE: 50 mg, 1 mL, IV Push (INF), Once, Day 1, PRN: Other (see order comments) famotidine: 20 mg, 2 mL, IV Push (INF), Once, Day 1, PRN: Other (see order comments) hydrocortisone 100 mg preservative-free injection: 100 mg, IV Push (INF), Once, Day 1, PRN: Other (see order comments) nivolumab (DoT): 480 mg, 48 mL, 296 mL/hr, IV Piggyback, Day of Tx, Day 1 Prescriptions Prescribed oxyCODONE 5 mg oral tablet ( IMMEDIATE release ): 5 mg, 1 tab(s), Oral, q8h, PRN: as needed for pain, 90 tab(s), 0 Refill(s) Documented Medications Documented Miralax 255 gm bottle: gram(s), Oral, qDay, PRN: Congestion, 0 Refill(s) senna 8.6 mg oral tablet: 17.2 mg, 2 tab(s), Oral, BID, PRN: as needed for constipation, 20 tab(s),0 Refill(s), Medications (17) Active Scheduled: (9) apixaban 5 mg tablet 5 mg 1 tab(s), Oral, BID lidocaine 1% (MPF) 2 mL vial pf 2.5 mg 0.25 mL, Intradermal, prep pharm lidocaine patch REMOVAL 1 EA, Miscellaneous, q24h lidocaine topical 4% patch 1 patch(es), Transdermal, q24h menthol (Biofreeze) gel packet 1 julia, Topical, qDay metoprolol tartrate 100 mg tablet 100 mg 1 tab(s), Oral, q8h miconazole topical 2% Powder 1 julia, Topical, BID Nicoderm patch REMOVAL 1 EA, Miscellaneous, q24h nicotine 14 mg/24 hr ER patch 14 mg 1 patch(es), Transdermal, q24h Continuous: (1) Dextrose 5% with 0.45% NACL 1,000 mL 1,000 mL, Intravenous, 20 mL/hr PRN: (7) acetaminophen 325 mg Tablet 650 mg 2 tab(s), Oral, q4h melatonin 5 mg tablet 5 mg 1 tab(s), Oral, qHS ondansetron 2 mg/ 1 mL 2 mL INJ 4 mg 2 mL, IV Push, q4h oxycodone 5 mg tablet (immediate release) 5 mg 1 tab(s), Oral, q4h oxycodone 5 mg tablet (immediate release) 10 mg 2 tab(s), Oral, q4h polyethylene glycol 3350 - UD packet 17 gram(s) 15 mL, Oral, BID senna 8.6 mg Tablet 8.6 mg 1 tab(s), Oral, qDay Problem list: Medical Alcohol abuse / SNOMED CT [id number] / Confirmed Cigarette smoker Active / SNOMED CT [id number] / Confirmed T11 vertebral fracture / SNOMED CT 6396038195 / Confirmed Marijuana user Active / SNOMED CT 5580010849 / Confirmed Metastatic renal cell carcinoma. S/P Left cytoreductive nephrectomy 08/14/20. Final path - ccRCC withsarcomatoid features. / SNOMED CT [id number] / Confirmed Lung nodule, multiple Active / SNOMED CT 8384258509 / Confirmed No chronic diseases present / SNOMED CT [id number] / Confirmed Left renal mass. 9.6-cm. With perinephric fat invasion. With lytic bony lesion and pulmonary nodules concerning for mets. BS, 07/2020 - neg. CT brain, 07/2020 - neg. S/P Radical nephrectomy 08/14/20. / SNOMED CT [id number] / Confirmed Secondary malignant neoplasm of bone (disorder) Active / SNOMED CT 780065960 / Confirmed Tobacco abuse / SNOMED CT 978759869 / Confirmed Viral gastroenteritis / SNOMED CT 744199360 / Confirmed Resolved: Renal cell carcinoma (disorder) Active / SNOMED CT [id number] Canceled: Left renal mass. 9.6-cm. With perinephric fat invasion. With lytic bony lesion and pulmonary nodules concerning for mets. / SNOMED CT [id number] Canceled: Left renal mass. 9.6-cm. With perinephric fat invasion. With lytic bony lesion and pulmonary nodules concerning for mets. CT brain, 07/2020 - neg. / SNOMED CT [id number] Canceled: Left renal mass. 9.6-cm. With perinephric fat invasion. With lytic bony lesion and pulmonary nodules concerning for mets. BS, 07/2020 - neg. CT brain, 07/2020 - neg. / SNOMED CT 342590730, Active Problems (26) Alcohol abuse Anxiety Arthritis At risk for sleep apnea Back pain Bleeding hemorrhoid BMI 50.0-59.9, adult Constipation COPD - Chronic obstructive pulmonary disease PIERSON (dyspnea on exertion) Elevated hemoglobin A1c Glasses Left renal mass. 9.6-cm. With perinephric fat invasion. With lytic bony lesion and pulmonary nodules Metastatic renal cell carcinoma. S/P Left cytoreductive nephrectomy 08/14/20. Final path - ccRCC with No chronic diseases present Pain management Rash Severe pain Sleep apnea T11 vertebral fracture Tobacco abuse Viral gastroenteritis Cigarette smoker Active Lung nodule, multiple Active Marijuana user Active Secondary malignant neoplasm of bone (disorder) Active Histories Past Medical History: Active No chronic diseases present ([id number]) Resolved Renal cell carcinoma (disorder) Active ([id number]): Resolved. Family History: Kidney stone Mother Sister Rheumatoid arthritis Mother Hypertension Mother Father Heart attack Father Crohn's disease Sister HTN - Hypertension Mother Father Diabetes Father Procedure history: Tooth extraction ([id number]) on 08/28/2021 at 41 Years. Nephrectomy, including partial ureterectomy, any open approach including rib resection; radical, with regional lymphadenectomy and/or vena caval thrombectomy ([id number]) on 08/14/2020 at 40 Years. Tonsillectomy ([id number]). Chemotherapy ([id number]). Comments: 11/17/2020 9:50 HENOK Bucio 3 weeks ago Boost radiation therapy ([id number]). Comments: 11/17/2020 9:51 HENOK Bucio 11-17-20 Social History Social & Psychosocial Habits Alcohol 11/07/2016Risk Assessment: Medium Risk 03/07/2022 Use: Current Type: Beer Frequency: Daily Previous treatment: Outpatient Has alcohol use interfered with work or home life: No Do you ever drink more than intended: Yes Has anyone been hurt or at risk by your drinking: Yes Ready to change: Yes Comment: Quit JULY 16, 2020 - 08/14/2020 10:33 - HENOK Purdy Employment/School 12/16/2020 Status: Employed Substance Abuse 11/07/2016Risk Assessment: Denies Substance Abuse 08/14/2020 Use: Current Type: Marijuana Frequency: 1-2 times per month IV drug use: No Ready to change: No Concerns about substance abuse in household: No Tobacco 08/07/2020 Tobacco Use: 10 or more cigarettes (1/ Type: Cigarettes Started at age: 13 Years Ready to change: Yes Comment: Daily Tobacco/Smoke Exposure - 10/25/2018 09:49 - Mely Beth CMA Home/Environment 08/14/2020 Domestic Concerns None Living situation: Home with assistance 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 Physical Examination Vital Signs 08/09/2022 11:19 EDT Heart Rate Monitored 122 bpm HI Respiratory Rate 20 br/min Systolic Blood Pressure Non-Invasive 124 mmHg Diastolic Blood Pressure Non-Invasive 98 mmHg HI Blood Pressure Method Automatic Blood Pressure Location Left arm 08/09/2022 11:15 EDT Heart Rate Monitored 122 bpm HI Respiratory Rate 20 br/min Systolic Blood Pressure Non-Invasive 113 mmHg Diastolic Blood Pressure Non-Invasive 87 mmHg Blood Pressure Method Automatic Blood Pressure Location Left arm 08/09/2022 11:13 EDT Systolic Blood Pressure Non-Invasive 102 mmHg mmHg Diastolic Blood Pressure Non-Invasive 73 mmHg mmHg 08/09/2022 11:10 EDT Heart Rate Monitored 122 bpm bpm 08/09/2022 11:09 EDT Systolic Blood Pressure Non-Invasive 96 mmHg mmHg Diastolic Blood Pressure Non-Invasive 78 mmHg mmHg 08/09/2022 11:06 EDT Systolic Blood Pressure Non-Invasive 95 mmHg mmHg Diastolic Blood Pressure Non-Invasive 65 mmHg mmHg 08/09/2022 11:05 EDT Heart Rate Monitored 120 bpm bpm 08/09/2022 11:04 EDT Systolic Blood Pressure Non-Invasive 91 mmHg mmHg Diastolic Blood Pressure Non-Invasive 62 mmHg mmHg 08/09/2022 11:00 EDT Heart Rate Monitored 124 bpm bpm Systolic Blood Pressure Non-Invasive 90 mmHg mmHg Diastolic Blood Pressure Non-Invasive 72 mmHg mmHg 08/09/2022 10:57 EDT Systolic Blood Pressure Non-Invasive 93 mmHg mmHg Diastolic Blood Pressure Non-Invasive 72 mmHg mmHg 08/09/2022 10:55 EDT Heart Rate Monitored 123 bpm bpm Systolic Blood Pressure Non-Invasive 97 mmHg mmHg Diastolic Blood Pressure Non-Invasive 69 mmHg mmHg 08/09/2022 10:51 EDT Systolic Blood Pressure Non-Invasive 112 mmHg mmHg Diastolic Blood Pressure Non-Invasive 88 mmHg mmHg 08/09/2022 10:50 EDT Heart Rate Monitored 123 bpm bpm 08/09/2022 10:49 EDT Systolic Blood Pressure Non-Invasive 97 mmHg mmHg Diastolic Blood Pressure Non-Invasive 82 mmHg mmHg 08/09/2022 10:45 EDT Heart Rate Monitored 126 bpm bpm Systolic Blood Pressure Non-Invasive 142 mmHg mmHg Diastolic Blood Pressure Non-Invasive 101 mmHg mmHg 08/09/2022 10:42 EDT Systolic Blood Pressure Non-Invasive 126 mmHg mmHg Diastolic Blood Pressure Non-Invasive 90 mmHg mmHg 08/09/2022 10:40 EDT Heart Rate Monitored 126 bpm bpm 08/09/2022 8:03 EDT Apical Heart Rate 128 bpm >HHI 08/09/2022 7:49 EDT Temperature Oral 36.9 DegC Heart Rate Monitored 128 bpm HI Respiratory Rate 18 br/min Systolic Blood Pressure Non-Invasive 121 mmHg Diastolic Blood Pressure Non-Invasive 85 mmHg Mean Arterial Pressure (NBP) 98 mmHg Reason For Taking VItal Signs Routine 08/09/2022 4:17 EDT Temperature Oral 36.8 DegC Heart Rate Monitored 127 bpm HI Respiratory Rate 18 br/min Systolic Blood Pressure Non-Invasive 120 mmHg Diastolic Blood Pressure Non-Invasive 86 mmHg Mean Arterial Pressure (NBP) 97 mmHg Reason For Taking VItal Signs Routine 08/09/2022 1:03 EDT Apical Heart Rate 129 bpm >HHI 08/09/2022 0:53 EDT Temperature Oral 37.1 DegC Peripheral Pulse Rate 132 bpm >HHI Respiratory Rate 18 br/min Systolic Blood Pressure Non-Invasive 124 mmHg Diastolic Blood Pressure Non-Invasive 78 mmHg 08/08/2022 20:14 EDT Temperature Oral 36.8 DegC Heart Rate Monitored 128 bpm HI Respiratory Rate 20 br/min Systolic Blood Pressure Non-Invasive 144 mmHg HI Diastolic Blood Pressure Non-Invasive 80 mmHg Mean Arterial Pressure (NBP) 98 mmHg Reason For Taking VItal Signs Routine 08/08/2022 16:13 EDT Apical Heart Rate 131 bpm >HHI 08/08/2022 16:10 EDT Heart Rate Monitored 126 bpm HI Respiratory Rate 20 br/min Systolic Blood Pressure Non-Invasive 114 mmHg Diastolic Blood Pressure Non-Invasive 69 mmHg Mean Arterial Pressure (NBP) 83 mmHg Reason For Taking VItal Signs Routine 08/08/2022 13:46 EDT Heart Rate Monitored 128 bpm HI 08/08/2022 11:42 EDT Temperature Oral 36.5 DegC Heart Rate Monitored 126 bpm HI Respiratory Rate 20 br/min Systolic Blood Pressure Non-Invasive 112 mmHg Diastolic Blood Pressure Non-Invasive 39 mmHg <LLOW Mean Arterial Pressure (NBP) 62 mmHg 08/08/2022 9:45 EDT Apical Heart Rate 129 bpm >HHI 08/08/2022 9:16 EDT Temperature Oral 36.7 DegC Heart Rate Monitored 126 bpm HI Respiratory Rate 20 br/min Systolic Blood Pressure Non-Invasive 115 mmHg Diastolic Blood Pressure Non-Invasive 81 mmHg Mean Arterial Pressure (NBP) 92 mmHg Reason For Taking VItal Signs Routine 08/08/2022 4:15 EDT Temperature Oral 36.8 DegC Heart Rate Monitored 127 bpm HI Respiratory Rate 20 br/min Systolic Blood Pressure Non-Invasive 129 mmHg Diastolic Blood Pressure Non-Invasive 81 mmHg Mean Arterial Pressure (NBP) 95 mmHg 08/08/2022 0:19 EDT Apical Heart Rate 128 bpm >HHI 08/08/2022 0:15 EDT Heart Rate Monitored 129 bpm HI Respiratory Rate 21 br/min HI Systolic Blood Pressure Non-Invasive 133 mmHg Diastolic Blood Pressure Non-Invasive 88 mmHg Reason For Taking VItal Signs Routine Vital Signs(last 24 hrs) Last Charted Temp Oral36.9 DegC (AUG 09 07:49) Heart Rate MonitoredH 122bpm (AUG 09 11:19) Resp Rate 20 br/min (AUG 09 11:19) PEB327 mmHg (AUG 09 11:19) DBPH 98mmHg (AUG 09 11:19) Measurements from flowsheet : Measurements 08/08/2022 13:17 EDT [place] Body Weight 70 kg Pain assessment: Pain Assessment 08/09/2022 11:19 EDT Pain Scale Type 0-10 Pain scale 08/09/2022 11:15 EDT Pain Scale Type 0-10 Pain scale 08/09/2022 7:49 EDT Primary Pain Location Lower back Primary Pain Location Lower back Primary Pain Intensity 2 Primary Pain Intensity 2 Primary Pain Non-Pharma Intervention Repositioning, Rest Primary Pain Non-Pharma Intervention Repositioning, Rest Primary Pain Nonverbal Response Appears restful Primary Pain Nonverbal Response Appears restful Pain Scale Type 0-10 Pain scale 08/09/2022 4:17 EDT Primary Pain Intensity 0 Primary Pain Nonverbal Response Nods No Pain Scale Type 0-10 Pain scale 08/09/2022 2:03 EDT Pain Scale Assessment PAINAD Primary Pain Location Lower back Primary Pain Intensity 2 08/09/2022 1:03 EDT Primary Pain Intensity 7 08/09/2022 0:53 EDT Primary Pain Location Lower back Primary Pain Intensity 7 Primary Pain Pharma Intervention Medication Primary Pain Non-Pharma Intervention Repositioning, Rest Pain Scale Type 0-10 Pain scale 08/08/2022 20:14 EDT Primary Pain Intensity 0 Primary Pain Nonverbal Response Nods No Pain Scale Type 0-10 Pain scale 08/08/2022 16:10 EDT Primary Pain Intensity 0 Primary Pain Nonverbal Response Nods No Pain Scale Type 0-10 Pain scale 08/08/2022 11:42 EDT Primary Pain Intensity 0 Primary Pain Nonverbal Response Nods No Pain Scale Type 0-10 Pain scale 08/08/2022 9:16 EDT Primary Pain Intensity 2 Primary Pain Nonverbal Response Nods No Pain Scale Type 0-10 Pain scale 08/08/2022 7:30 EDT Pain Scale Assessment 0-10 Pain scale Primary Pain Location Generalized Primary Pain Intensity 0 08/08/2022 5:42 EDT Primary Pain Intensity 7 08/08/2022 4:15 EDT Primary Pain Location Lower back Primary Pain Intensity 3 Primary Pain Pharma Intervention Medication Pain Scale Type 0-10 Pain scale 08/08/2022 0:15 EDT Primary Pain Location Lower back Primary Pain Intensity 6 Primary Pain Pharma Intervention Medication Pain Scale Type 0-10 Pain scale . General: Alert and oriented. Airway: Normal temporomandibular joint mobility, Normal mouth, Normal throat, Normal neck range of motion, Trachea midline. Mallampati classification: II (soft palate, fauces, uvula visible). Head: Normocephalic. Dentition Evaluation: Intact, Own teeth, Denies loose/chipped teeth. Neck: Supple. Respiratory: Lungs are clear to auscultation, Respirations are non-labored. Cardiovascular: Normal rate, No murmur. Heart Sounds: Normal. Neurologic: Alert, Oriented. Review / Management Results review: Labs (Last four charted values) WBC 10.6(AUG 09)H 11.3(AUG 08)H 13.9(AUG 07)H 13.4(WILLIAM 24) Hgb L 12.8(WILLIAM 27)L 12.7(WILLIAM 26)L 12.8(WILLIAM 25)13.5(WILLIAM 24) Hct L 39.2(WILLIAM 27)L 39.0(WILLIAM 26)L 39.0(WILLIAM 25)41.1(WILLIAM 24) Plt 249(WILLIAM 27)245(WILLIAM 26)201(WILLIAM 25)177(WILLIAM 24) Na 136(WILLIAM 27)137(WILLIAM 26)L 133(WILLIAM 25)L 133(WILLIAM 24) K 4.7(WILLIAM 27)4.8(WILLIAM 26)5.0(WILLIAM 25)H 5.2(WILLIAM 24) CO2 32(WILLIAM 27)H 34(WILLIAM 26)H 34(WILLIAM 25)H 34(WILLIAM 24) Cl 103(WILLIAM 27)100(WILLIAM 26)99(WILLIAM 25)98(WILLIAM 24) Cr 1.24(WILLIAM 27)1.25(WILLIAM 26)1.25(WILLIAM 25)1.18(WILLIAM 24) BUN H 24.0(WILLIAM 27)H 25.0(WILLIAM 26)H 28.0(WILLIAM 25)H 23.0(WILLIAM 24) Glucose 107(WILLIAM 27)101(WILLIAM 26)H 128(WILLIAM 25)H 117(WILLIAM 24) Mg 1.8(WILLIAM 27)1.9(WILLIAM 26)2.0(WILLIAM 23)2.0(WILLIAM 22) Phos 4.0(WILLIAM 23) Ca L 8.5(WILLIAM 27)8.8(WILLIAM 26)8.7(WILLIAM 25)9.1(WILLIAM 24) PT H 15.1(WILLIAM 25)13.8(WILLIAM 20)H 15.7(WILLIAM 19) INR 1.3(WILLIAM 25)1.2(WILLIAM 20)1.3(WILLIAM 19) PTT C 123.0(WILLAIM 26)C 143.6(WILLIAM 25)H 64.7(WILLIAM 25)C 172.2(WILLIAM 25) , Lab results 08/09/2022 12:03 EDT Anesthesiology Consultation Post anesthesia Evaluation Cardioversion - JPM 08/09/2022 12:02 EDT magnesium sulfate 2 gram(s) gram(s) 08/09/2022 11:54 EDT Date/Time of Report 08/09/2022 11:39 Report Given To RN, HAMMAD RN Report Mode Phone Transfer Report Vital signs, LOC, Orientation, Comfort status, I&O, Fluid replacement status (IV) Patient Disposition Other: PATIENT ROOM Mode of Departure Bed Present at Departure IV, Monitor, Oxygen 08/09/2022 11:19 EDT Heart Rate Monitored 122 bpm HI Respiratory Rate 20 br/min Systolic Blood Pressure Non-Invasive 124 mmHg Diastolic Blood Pressure Non-Invasive 98 mmHg HI Blood Pressure Method Automatic Blood Pressure Location Left arm Pain Scale Type 0-10 Pain scale Monitor Alarms On and Limits Checked Heart Rhythm Irregular Cardiac Rhythm Atrial fibrillation Alarms On and Functional Yes Heart Rate Alarm Set At - Low 50 Heart Rate Alarm Set At - High 150 Cough Loose, Occasional, Able to clear secretions Sputum Amount Small Sputum Color Light, [place] Sputum Consistency Thick Oxygen Therapy Venti-Mask Oxygen Saturation 99 % Oxygen Flow Rate 8 Level of Consciousness Arousable with minimal stimulation Affect/Behavior Appropriate, Calm, Cooperative Orientation Oriented x 4 Jo Motor (2) Moves 4 extremities voluntarily or on command Jo Respirations (1) Spontaneous respiration with support Jo Blood Pressure (2) BP 20% above or below preanesthetic level Jo Pulse (2) Pulse 20% above or below preanesthetic level Jo Oxygen Saturation (2) 94% or more Jo Level of Consciousness (1) Arouses on calling Jo III Score 10 Orientation Assessment Oriented x 4 Pt./Caregiver Remote Cont.Visual Monitor Verbalizes/Nonverbally indicates understanding Activity Status ADL Resting Standard Safety ID band on, Allergy Band on, Wheels locked 08/09/2022 11:18 EDT SN - CAt - Case Attendee SN - CAt - Case Attendee SN - CAt - Role Performed NONPROFIT DIRECTOR SN - CAt - Role Performed Procedure Nurse 08/09/2022 11:18 EDT SN - CAt - Case Attendee SN - CAt - Case Attendee SN - CAt - Case Attendee SN - CAt - Case Attendee SN - CAt - Case Attendee SN - CAt - Case Attendee SN - CAt - Case Attendee SN - CAt - Case Attendee SN - CAt - Case Attendee SN - CAt - Case Attendee SN - CAt - Case Attendee SN - CAt - Case Attendee SN - CAt - Case Attendee SN - CAt - Case Attendee SN - CAt - Role Performed Primary Surgeon (Modified) SN - CAt - Role Performed Anesthesiologist (Modified) SN - CAt - Role Performed Screen Writer (Modified) SN - CAt - Role Performed STS (Modified) SN - CAt - Role Performed Medical Student (Modified) SN - CAt - Role Performed Procedure Nurse (Modified) 08/09/2022 11:16 EDT Out of Room Remains in Current Location Special Procedures 08/09/2022 11:15 EDT SN - CTm - Anesthesia Stop Time Anesthesia Stop Anesthesia Final Record 08/09/2022 11:15 EDT Heart Rate Monitored 122 bpm HI Respiratory Rate 20 br/min Systolic Blood Pressure Non-Invasive 113 mmHg Diastolic Blood Pressure Non-Invasive 87 mmHg Blood Pressure Method Automatic Blood Pressure Location Left arm Pain Scale Type 0-10 Pain scale Monitor Alarms On and Limits Checked Heart Rhythm Irregular Cardiac Rhythm Atrial fibrillation Alarms On and Functional Yes Heart Rate Alarm Set At - Low 50 Heart Rate Alarm Set At - High 150 Respiratory Symptoms Short of breath lying flat Respirations Labored Suction Method Oral Cough Loose, Occasional, Able to clear secretions Suction Device [place] Sputum Amount Small Sputum Color Light, [place] Sputum Consistency Thick Oxygen Therapy Venti-Mask Oxygen Saturation 99 % Oxygen Flow Rate 10 Level of Consciousness Arousable with minimal stimulation Affect/Behavior Appropriate, Calm, Cooperative Orientation Oriented x 4 Jo Motor (1) Spinal or spontaneous movement Jo Respirations (1) Spontaneous respiration with support Jo Blood Pressure (2) BP 20% above or below preanesthetic level Jo Pulse (2) Pulse 20% above or below preanesthetic level Jo Oxygen Saturation (2) 94% or more Jo Level of Consciousness (1) Arouses on calling Jo III Score 9 Orientation Assessment Oriented x 4 Pt./Caregiver Remote Cont.Visual Monitor Verbalizes/Nonverbally indicates understanding Activity Status ADL Sleeping Standard Safety ID band on, Allergy Band on, Wheels locked Lactated Ringers Injection 100 mL mL 08/09/2022 11:13 EDT Systolic Blood Pressure Non-Invasive 102 mmHg mmHg Diastolic Blood Pressure Non-Invasive 73 mmHg mmHg 08/09/2022 11:10 EDT Heart Rate Monitored 122 bpm bpm Oxygen Saturation 97.8 % % 08/09/2022 11:09 EDT Systolic Blood Pressure Non-Invasive 96 mmHg mmHg Diastolic Blood Pressure Non-Invasive 78 mmHg mmHg 08/09/2022 11:06 EDT SN - GCD - Post-operative Diagnosis ATRIAL FIBRILLATION 08/09/2022 11:06 EDT SN - CTm - Surgery Stop 08/09/2022 11:06 08/09/2022 11:06 EDT Systolic Blood Pressure Non-Invasive 95 mmHg mmHg Diastolic Blood Pressure Non-Invasive 65 mmHg mmHg SN - CTm - Surgery Stop Surgery Stop CVOR Intraop Record CVOR Intraop Record (Modified) CVOR Recovery Cardioversion Record CVOR Recovery Record 08/09/2022 11:05 EDT Heart Rate Monitored 120 bpm bpm Oxygen Saturation 78.3 % % 08/09/2022 11:04 EDT Systolic Blood Pressure Non-Invasive 91 mmHg mmHg Diastolic Blood Pressure Non-Invasive 62 mmHg mmHg 08/09/2022 11:03 EDT SN - Proc - Actual Procedure TRANSESOPHAGEAL ECHOCARDIOGRAM (Modified) 08/09/2022 11:01 EDT propofol 30 mg mg 08/09/2022 11:00 EDT Heart Rate Monitored 124 bpm bpm Systolic Blood Pressure Non-Invasive 90 mmHg mmHg Diastolic Blood Pressure Non-Invasive 72 mmHg mmHg Oxygen Saturation 97.2 % % propofol 20 mg mg 08/09/2022 10:57 EDT Systolic Blood Pressure Non-Invasive 93 mmHg mmHg Diastolic Blood Pressure Non-Invasive 72 mmHg mmHg 08/09/2022 10:55 EDT Heart Rate Monitored 123 bpm bpm Systolic Blood Pressure Non-Invasive 97 mmHg mmHg Diastolic Blood Pressure Non-Invasive 69 mmHg mmHg Oxygen Saturation 92.6 % % propofol 20 mg mg 08/09/2022 10:51 EDT SN - Proc - Anesthesia Type General SN - Proc - EBL 0 mL 08/09/2022 10:51 EDT Systolic Blood Pressure Non-Invasive 112 mmHg mmHg Diastolic Blood Pressure Non-Invasive 88 mmHg mmHg propofol 30 mg mg 08/09/2022 10:50 EDT SN - PP - Body Position OP Supine 08/09/2022 10:50 EDT Heart Rate Monitored 123 bpm bpm Oxygen Saturation 97.7 % % 08/09/2022 10:49 EDT Systolic Blood Pressure Non-Invasive 97 mmHg mmHg Diastolic Blood Pressure Non-Invasive 82 mmHg mmHg 08/09/2022 10:48 EDT SN - GCD - ASA Class 2 SN - GCD - Case Level Flat-Fee 08/09/2022 10:47 EDT SN - CTm - Surgery Start 08/09/2022 10:40 08/09/2022 10:46 EDT propofol 120 mg mg 08/09/2022 10:45 EDT Heart Rate Monitored 126 bpm bpm Systolic Blood Pressure Non-Invasive 142 mmHg mmHg Diastolic Blood Pressure Non-Invasive 101 mmHg mmHg Oxygen Saturation 100 % % 08/09/2022 10:42 EDT Systolic Blood Pressure Non-Invasive 126 mmHg mmHg Diastolic Blood Pressure Non-Invasive 90 mmHg mmHg Intra-Op EBL 0 mL 08/09/2022 10:40 EDT Heart Rate Monitored 126 bpm bpm Oxygen Saturation 99.1 % % SN - CTm - Surgery Start Surgery Start 08/09/2022 10:36 EDT SN - CTm - Anesthesia Start Time Anesthesia Start Lactated Ringers Injection Begin Bag 1,000 mL mL 08/09/2022 10:35 EDT Oxygen Saturation 98.8 % % 08/09/2022 10:21 EDT Accompanied By Staff Monitor, Nurse, Transporter Out of Room Went to Current Location Special Procedures Transport via Bed 08/09/2022 10:19 EDT Electrocardiogram - EKG - CV Ordered (In Progress) 08/09/2022 10:03 EDT lidocaine topical 1 patch(es) patch(es) 08/09/2022 10:00 EDT Transesophageal Echocardiogram - CV Arrived (In Progress) 08/09/2022 9:00 EDT apixaban Not Done: Physician Order (Not Done) menthol topical Not Done: Patient Refused (Not Done) Nicoderm Patch REMOVAL 1 EA EA 08/09/2022 8:45 EDT Worker's Comp Patient No (Unauth) PT Attempts Attempted PT but pt is very agitated. He reports trying to sleep as he did not get sleep last night, but is monitors are keeping him up. Pt is scheduled for a BONNIE today and requests a later time if possible. (Unauth) PT Initiate/Continue Treatment Yes (Unauth) Physical Therapy Daily Notes Form Physical Therapy Daily Notes Form (Unauth) Physical Therapy Progress Note Physical Therapy Daily Notes (Unauth) 08/09/2022 8:03 EDT Apical Heart Rate 128 bpm >HHI apixaban 5 mg mg (In Error) metoprolol 100 mg mg miconazole topical 1 julia julia nicotine 14 mg mg 08/09/2022 7:49 EDT Temperature Oral 36.9 DegC Heart Rate Monitored 128 bpm HI Respiratory Rate 18 br/min Systolic Blood Pressure Non-Invasive 121 mmHg Diastolic Blood Pressure Non-Invasive 85 mmHg Mean Arterial Pressure (NBP) 98 mmHg Reason For Taking VItal Signs Routine Primary Pain Location Lower back Primary Pain Location Lower back Primary Pain Intensity 2 Primary Pain Intensity 2 Primary Pain Non-Pharma Intervention Repositioning, Rest Primary Pain Non-Pharma Intervention Repositioning, Rest Primary Pain Nonverbal Response Appears restful Primary Pain Nonverbal Response Appears restful Pain Scale Type 0-10 Pain scale Nail Bed Color [place] Capillary Refill < 2 seconds Heart Sounds ICU S1S2 Heart Rhythm Regular Dorsalis Pedis Pulse, Left 1+ Thready Dorsalis Pedis Pulse, Right 1+ Thready Radial Pulse, Left 2+ Normal Radial Pulse, Right 2+ Normal Leg edema Edema Ratin+ mild/4mm Cardiac Rhythm Sinus tachycardia Monitoring Lead II, V1/MCL1 Alarms On and Functional Yes Heart Rate Alarm Set At - Low 50 Heart Rate Alarm Set At - High 120 Respiratory Symptoms Difficulty breathing with activity Respirations Unlabored Respiratory Pattern Regular Breath Sounds Auscultated Anterior and posterior All Lobes Breath Sounds Diminished Cough Occasional, Productive Oxygen Therapy Nasal cannula 0L-6L Oxygen Saturation 100 % Oxygen Flow Rate 2 Abdomen Description Non-distended Abdomen Palpation Non-Tender, Soft Bowel Sounds All Quadrants Present Urinary Elimination Voiding, no difficulties Facial Movement Makes facial grimaces, Symmetric resting/crying Skin Symptoms Bruising All Extremity Description Normal for ethnicity Skin Temperature Warm Temperature All Extremities Warm Skin Description Normal for ethnicity, Dry Skin Integrity Not intact Skin Turgor Non-Elastic Mucous Membrane Color [place] Mucous Membrane Description Moist Sensory Perception [place] Slightly limited Moisture [place] Rarely moist Activity Haroon Walks occasionally Mobility Har[place] Slightly limited Nutrition Haroon Adequate Friction and Shear Haroon No apparent problem Haroon Score 19 Hospital Acquired Pressure Injury Risk None/minimal risk (score 19-23) Groin Right Skin Abnormality Type: Procedure site Wound Status: No complications Groin Bilateral Skin Abnormality Type: Excoriation Incision, Wound Dressing: Open to air Wound Status: No complications Implanted port Right 19g 08/01/2022 Central IV Activity: Assessed Central IV Number of Lumens: Single Central IV Patency Proximal Port: Flushes easily, 20ml normal saline flush Central IV Dressing Condition: Clean, Dry, Intact Central IV Dressing / Activity: Port CHG dressing with proper placement Central IV Line Care: Alcohol port cap(s) in place Central IV Site Condition: No complications Central IV Equipment: PRN Adaptor Wrist Right 08/02/2022 20 gauge Peripheral IV Activity: Assessed Peripheral IV Dressing Condition: Clean, Dry, Intact Peripheral IV Dressing Activity: Transparent dressing Peripheral IV Line Status/Patency: Flushes easily, 10ml normal saline flush Peripheral IV Site Condition: No complications Peripheral IV Equipment: PRN Adaptor Neurological Language Able to speak clearly, Follows simple commands Neurological Symptoms Patient denies Gait Unable to assess Extremity Movement Equal Swallowing Difficulty None Characteristics of Communication Appropriate Characteristics of Speech Clear Facial Symmetry Symmetric Level of Consciousness Alert Aspiration Risk None Eye Opening Response [place] Spontaneously Best Motor Response Norton Obeys simple commands Best Verbal Response Norton Oriented Norton Coma Score 15 GERMAN Yes Left Pupil Description Regular, Round Right Pupil Description Regular, Round Left Pupil Reaction Brisk Right Pupil Reaction Brisk Pupil Size, Left 3 mm Pupil Size, Right 3 mm Strength All Extremities Moderate Left Upper Extremity Sensation Intact Right Upper Extremity Sensation Intact Left Lower Extremity Sensation Intact Right Lower Extremity Sensation Intact CN V Facial Sensation Light touch equal bilaterally CN VII Facial Expression and Symmetry Facial movement symmetrical CN VIII Hearing Spoken word equally audible left/right CN IX, X Swallowing, Gag Reflex Swallowing present Camp[place] Screen Daily History of Fall in Last 3 Months Campa No Presence of Secondary Diagnosis [place] Yes Use of Ambulatory Aid [place] None, bedrest, wheelchair, nurse IV/PRN Adapter Fall Risk [place] Yes Gait Weak or Impaired Fall Risk [place] Normal, bedrest, immobile Mental Status Fall Risk [place] Oriented to own ability [place] Fall Risk Score 35 Violence Risk Confused No Violence Risk Irritable No Violence Risk Boisterous No Violence Risk Verbal Threats No Violence Risk Physical Threats No Violence Risk Attacking Objects No Violence Risk Predictor Score 0 Violence Risk Intervention None Violence Risk Current Interventions None Affect/Behavior Appropriate, Calm, Cooperative Orientation Oriented x 4 BMAT Existing Patient Condition/Safety No order for Strict Bedrest BMAT Level 1: Sit and Shake Sit, side bed/reach midline/shake hands BMAT Level 2: Stretch and Point Seated position, straighten 1 knee; Flex ankle & point toes BMAT Level 3: Stand Patient unable BMAT Mobility Level 2 Activity Status ADL Remains up in chair Standard Safety ID band on, Allergy Band on, Call device within reach, Bed in low position, Wheels locked, Upper/Half-Length side-rails up, Phone within reach, personal items within reach, Assistive devices within reach, Safety level maintained High Risk Safety Room check performed Demonstrates Correct Call Light Use Yes 08/09/2022 7:25 EDT Bed Bath Minimum assistance Skin Care Done Skin Care Product Applied Shampoo cap, CHG bath Sachi Care Minimum assistance Linen Change Patient refused 08/09/2022 7:16 EDT Oxygen Therapy Nasal cannula 0L-6L Oxygen Activity Oxygen On Oxygen Flow Rate 2 08/09/2022 4:23 EDT WBC 10.6 10^3/mcL RBC 3.99 10^6/mcL LOW Hgb 12.8 G/dL LOW Hct 39.2 % LOW MCV 98.2 fL MCH 32.0 pg MCHC 32.6 G/dL RDW 14.4 % Platelet 249 10^3/mcL MPV 8.0 fL Neutrophil % 68.4 % Lymphocyte % 14.7 % LOW Monocyte % 13.3 % HI Eosinophil % 2.7 % Basophil % 0.9 % Neutrophil, Absolute 7.3 10^3/mcL Lymphocyte, Absolute 1.6 10^3/mcL Monocyte, Absolute 1.4 10^3/mcL Eosinophil, Absolute 0.3 10^3/mcL Basophil, Absolute 0.1 10^3/mcL Glucose Level 107 mg/dL Sodium Level 136 mEq/L Potassium Level 4.7 mEq/L Chloride 103 mEq/L CO2 32 mEq/L Electrolyte Balance 1.0 mEq/L LOW BUN 24.0 mg/dL HI Creatinine Lvl (s) 1.24 mg/dL BUN/Creatinine Ratio 19.4 ratio Calcium Lvl 8.5 mg/dL LOW Magnesium Lvl 1.8 mg/dL GFR Non- >60 ml/min/1.73sqm NA GFR >60 ml/min/1.73sqm NA Creatinine Clearance Calc 76.05 mL/min 08/09/2022 4:17 EDT Temperature Oral 36.8 DegC Heart Rate Monitored 127 bpm HI Respiratory Rate 18 br/min Systolic Blood Pressure Non-Invasive 120 mmHg Diastolic Blood Pressure Non-Invasive 86 mmHg Mean Arterial Pressure (NBP) 97 mmHg Reason For Taking VItal Signs Routine Primary Pain Intensity 0 Primary Pain Nonverbal Response Nods No Pain Scale Type 0-10 Pain scale Nail Bed Color [place] Capillary Refill < 2 seconds Dorsalis Pedis Pulse, Left 1+ Thready Dorsalis Pedis Pulse, Right 1+ Thready Radial Pulse, Left 2+ Normal Radial Pulse, Right 2+ Normal Leg edema Edema Ratin+ mild/4mm Cardiac Rhythm Sinus tachycardia Monitoring Lead II, V1/MCL1 Alarms On and Functional Yes Heart Rate Alarm Set At - Low 50 Heart Rate Alarm Set At - High 120 Respirations Unlabored Respiratory Pattern Regular Breath Sounds Auscultated Anterior only All Lobes Breath Sounds Diminished Cough Productive Sputum Amount Small Sputum Color Blood-Tinged Sputum Consistency Thick Oxygen Therapy Nasal cannula 0L-6L Oxygen Saturation 99 % Oxygen Flow Rate 2 Abdomen Description Non-distended, Symmetric, Soft Abdomen Palpation Non-Tender Bowel Sounds All Quadrants Present Urinary Elimination Voiding, no difficulties Urine Color Yellow Urine Description Clear Facial Movement Makes facial grimaces Skin Symptoms Bruising All Extremity Description [place], Normal for ethnicity Skin Temperature Warm Temperature All Extremities Warm Skin Description [place], Dry Skin Integrity Not intact Skin Turgor Non-Elastic Mucous Membrane Color [place] Mucous Membrane Description Moist Continuous IV Infusions Adapted Implanted port Right 19g 08/01/2022 Central IV Activity: Assessed Central IV Number of Lumens: Single Central IV Patency Proximal Port: Flushes easily, 10ml normal saline flush, Aspirated, Good blood return Central IV Dressing Condition: Clean, Dry, Intact Central IV Dressing / Activity: Port CHG dressing with proper placement Central IV Line Care: Alcohol port cap(s) in place, Alcohol port cap(s) changed Central IV Site Condition: No complications Central IV Equipment: PRN Adaptor Wrist Right 08/02/2022 20 gauge Peripheral IV Activity: Assessed Peripheral IV Dressing Condition: Clean Peripheral IV Dressing Activity: Transparent dressing Peripheral IV Line Status/Patency: Flushes easily Peripheral IV Site Condition: No complications Peripheral IV Equipment: PRN Adaptor Neurological Language Able to speak clearly, Follows simple commands Neurological Symptoms Patient denies Gait Steady Extremity Movement Equal Swallowing Difficulty None Characteristics of Communication Appropriate Characteristics of Speech Clear Facial Symmetry Symmetric Level of Consciousness Alert Aspiration Risk None Eye Opening Response [place] Spontaneously Best Motor Response [place] Obeys simple commands Best Verbal Response Norton Oriented [place] Coma Score 15 GERMAN Yes Left Pupil Description Regular Right Pupil Description Regular Left Pupil Reaction Brisk Right Pupil Reaction Brisk Pupil Size, Left 3 mm Pupil Size, Right 3 mm Strength All Extremities Moderate Left Upper Extremity Sensation Intact Right Upper Extremity Sensation Intact Left Lower Extremity Sensation Intact Right Lower Extremity Sensation Intact CN VII Facial Expression and Symmetry Facial movement symmetrical CN VIII Hearing Spoken word equally audible left/right CN IX, X Swallowing, Gag Reflex Swallowing present Violence Risk Confused No Violence Risk Irritable No Violence Risk Boisterous No Violence Risk Verbal Threats No Violence Risk Physical Threats No Violence Risk Attacking Objects No Violence Risk Predictor Score 0 Violence Risk Intervention None Violence Risk Current Interventions None Affect/Behavior Appropriate, Calm, Cooperative Orientation Oriented x 4 Orientation Assessment Oriented x 4 Activity Status ADL Remains up in chair, Repositions self Beds/Devices bariatric bed Assistive Equipment elevated on pillows Activity Assistance Moderate assistance Standard Safety ID band on, Allergy Band on, Call device within reach, Bed in low position, Wheels locked, Upper/Half-Length side-rails up, Phone within reach, personal items within reach, Bedside Cart Locked, Safety level maintained High Risk Safety Room check performed Demonstrates Correct Call Light Use Yes Degrees Head of Bed Elevated 30 08/09/2022 4:12 EDT Patient Tolerance BiPAP/CPAP on stand-by 08/09/2022 2:03 EDT Pain Scale Assessment PAINAD Primary Pain Location Lower back Primary Pain Intensity 2 Reason for PRN medication Pain management PRN medication effectiveness Partial PRN Medication Effectiveness Evaluation PRN Medication Effectiveness Evaluation 08/09/2022 1:09 EDT Rise Time 2 second(s) Respiratory Rate Total 24 br/min Noninvasive Frequency, Mandatory 8 br/min Noninvasive FiO2 30 % Noninvasive Tidal Volume, Exhaled 0.595 L Noninvasive Minute Volume 15.2 L/min Non-Invasive Inspiratory Time (IT) 0.8 second(s) Mask/ETT Selection 1 Exhalation port selection Other: Non Invasive On and Functional Yes Non Invasive Vent Apnea 20 second(s) Non InvasiveVent Low Pressure/Disconnect 8 cmH20 Non InvasiveVent High Pressure 26 cmH20 Non InvasiveVent Low Rate 8 br/min Non InvasiveVent High Rate 40 br/min Non InvasiveVent Low Minute Volume 2 L/min BiPAP/CPAP Mode BiPAP BiPAP/CPAP Machine Model Kristen V60 BiPAP/CPAP Machine ID [id number] Estimated Leak 7 L/min Mask/Delivery Type Full face mask Mask Size Large Patient Tolerance BiPAP/CPAP Well Nares Condition on BIPAP/CPAP No breakdown noted Inspiratory Pressure 15 cmH20 Expiratory Pressure 8 cmH20 BIPAP/CPAP Daily Charge BIPAP on 08/09/2022 1:03 EDT Apical Heart Rate 129 bpm >HHI Primary Pain Intensity 7 Oxygen Therapy BiPAP metoprolol 100 mg mg oxyCODONE 10 mg mg 08/09/2022 0:53 EDT Temperature Oral 37.1 DegC Peripheral Pulse Rate 132 bpm >HHI Respiratory Rate 18 br/min Systolic Blood Pressure Non-Invasive 124 mmHg Diastolic Blood Pressure Non-Invasive 78 mmHg Primary Pain Location Lower back Primary Pain Intensity 7 Primary Pain Pharma Intervention Medication Primary Pain Non-Pharma Intervention Repositioning, Rest Pain Scale Type 0-10 Pain scale Monitor Alarms On and Limits Checked Nail Bed Color [place] Capillary Refill < 2 seconds Heart Sounds ICU S1S2 Heart Rhythm Regular Leg edema Edema Ratin+ mild/4mm Cardiac Rhythm Sinus tachycardia Monitoring Lead II, V1/MCL1 Alarms On and Functional Yes Heart Rate Alarm Set At - Low 50 Heart Rate Alarm Set At - High 120 Respiratory Symptoms Difficulty breathing with activity Respirations Unlabored Respiratory Pattern Regular Breath Sounds Auscultated Posterior only All Lobes Breath Sounds Diminished Cough Productive Sputum Amount Small Sputum Color Clear, Blood-Tinged Sputum Consistency Thick Oxygen Therapy Nasal cannula 0L-6L Oxygen Saturation 98 % Oxygen Flow Rate 2 Urinary Elimination Voiding, no difficulties Urine Color Yellow Urine Description Clear All Extremity Description [place] Temperature All Extremities Warm Skin Description [place], Dry Mucous Membrane Color [place] Mucous Membrane Description Moist Implanted port Right 19g 08/01/2022 Central IV Activity: Assessed Central IV Number of Lumens: Single Central IV Patency Proximal Port: Flushes easily, 10ml normal saline flush, Good blood return Central IV Dressing Condition: Clean, Dry, Intact Central IV Dressing / Activity: Port CHG dressing with proper placement Central IV Line Care: Alcohol port cap(s) in place Central IV Site Condition: No complications Central IV Equipment: PRN Adaptor Wrist Right 08/02/2022 20 gauge Peripheral IV Activity: Assessed Peripheral IV Dressing Condition: Clean, Dry, Intact Peripheral IV Dressing Activity: Transparent dressing Peripheral IV Line Status/Patency: Flushes easily, 3ml normal saline flush Peripheral IV Site Condition: No complications Peripheral IV Equipment: PRN Adaptor Neurological Language Able to speak clearly Neurological Symptoms Patient denies Gait Unable to assess Extremity Movement Equal Swallowing Difficulty None Characteristics of Communication Appropriate Characteristics of Speech Clear Facial Symmetry Symmetric Level of Consciousness Alert Aspiration Risk None Strength All Extremities Moderate Left Upper Extremity Sensation Intact Right Upper Extremity Sensation Intact Left Lower Extremity Sensation Intact Right Lower Extremity Sensation Intact Activity Status ADL Remains up in chair Standard Safety Safety level maintained High Risk Safety Room check performed Demonstrates Correct Call Light Use Yes 08/08/2022 23:00 EDT Post Void Residual 325 mL Urine Voided 500 mL Urine Voided 800 mL 08/08/2022 21:54 EDT Mechanical VTE Prophylaxis Education Not Done: Task Duplication (Not Done) Mechanical VTE Prophylaxis Education Not Done: Task Duplication (Not Done) Mechanical VTE Prophylaxis Education Not Done: Task Duplication (Not Done) Able To Drink Order Detail Not Done: Task Duplication (Not Done) Able To Sign Consents Order Detail Not Done: Task Duplication (Not Done) Code Status Order Detail Not Done: Task Duplication (Not Done) IV Order Detail Not Done: Task Duplication (Not Done) Dialysis Schedule Order Detail Not Done: Task Duplication (Not Done) Has Diabetes Order Detail Not Done: Task Duplication (Not Done) Isolation Precautions Order Detail Not Done: Task Duplication (Not Done) Nurse Collect Order Detail Not Done: Task Duplication (Not Done) Oxygen Order Detail Not Done: Task Duplication (Not Done) Order Detail Not Done: Task Duplication (Not Done) Prior Valve Replacement Order Detail Not Done: Task Duplication (Not Done) Transport Mode Order Detail Not Done: Task Duplication (Not Done) Can Top Setter Details Form Not Done (Not Done) Sequential Compression Device Form Not Done (Not Done) Sequential Compression Device Form Not Done (Not Done) Sequential Compression Device Form Not Done (Not Done) 08/08/2022 21:44 EDT apixaban 5 mg mg miconazole topical 1 julia julia 08/08/2022 21:12 EDT BIPAP/CPAP Daily Charge In Error (In Error) 08/08/2022 20:56 EDT Oncology Progress Note Progress Note 08/08/2022 20:14 EDT Temperature Oral 36.8 DegC Heart Rate Monitored 128 bpm HI Respiratory Rate 20 br/min Systolic Blood Pressure Non-Invasive 144 mmHg HI Diastolic Blood Pressure Non-Invasive 80 mmHg Mean Arterial Pressure (NBP) 98 mmHg Reason For Taking VItal Signs Routine Primary Pain Intensity 0 Primary Pain Nonverbal Response Nods No Pain Scale Type 0-10 Pain scale Monitor Alarms On and Limits Checked Nail Bed Color [place] Capillary Refill < 2 seconds Heart Sounds ICU S1S2 (Modified) Heart Rhythm Regular Dorsalis Pedis Pulse, Left 1+ Thready Dorsalis Pedis Pulse, Right 1+ Thready Leg edema Edema Ratin+ mild/4mm Cardiac Rhythm Sinus tachycardia Monitoring Lead II, V1/MCL1 Alarms On and Functional Yes Heart Rate Alarm Set At - Low 50 Heart Rate Alarm Set At - High 120 NSBP Alarm Low 90 NSBP Alarm High 160 HI Respiratory Symptoms Difficulty breathing with activity Respirations Unlabored Respiratory Pattern Regular Breath Sounds Auscultated Anterior only All Lobes Breath Sounds Diminished Oxygen Therapy Nasal cannula 0L-6L Oxygen Saturation 99 % Oxygen Flow Rate 2 Abdomen Description Non-distended Abdomen Palpation Non-Tender Bowel Sounds All Quadrants Present Urinary Elimination Voiding, no difficulties Facial Movement Makes facial grimaces Skin Symptoms Bruising All Extremity Description Normal for ethnicity Skin Temperature Warm Temperature All Extremities Warm Skin Description Normal for ethnicity, Dry Skin Integrity Not intact Skin Turgor Non-Elastic Mucous Membrane Color [place] Mucous Membrane Description Moist Groin Right Skin Abnormality Type: Procedure site Groin Bilateral Skin Abnormality Type: Excoriation Incision, Wound Dressing: Open to air Continuous IV Infusions adapted Implanted port Right 19g 08/01/2022 Central IV Activity: Assessed Central IV Number of Lumens: Single Central IV Patency Proximal Port: Flushes easily Central IV Dressing Condition: Dry, Intact Central IV Dressing / Activity: Port CHG dressing with proper placement Central IV Line Care: Alcohol port cap(s) in place Central IV Site Condition: No complications Central IV Equipment: PRN Adaptor Wrist Right 08/02/2022 20 gauge Peripheral IV Activity: Assessed Peripheral IV Dressing Condition: Clean, Dry, Intact Peripheral IV Dressing Activity: Transparent dressing Peripheral IV Line Status/Patency: Flushes easily Peripheral IV Site Condition: No complications Peripheral IV Equipment: PRN Adaptor Neurological Language Able to speak clearly Neurological Symptoms Patient denies Gait Steady Extremity Movement Equal Swallowing Difficulty None Characteristics of Communication Appropriate Characteristics of Speech Clear Facial Symmetry Symmetric Level of Consciousness Alert Aspiration Risk None Eye Opening Response Norton Spontaneously Best Motor Response Norton Obeys simple commands Best Verbal Response Dominga Oriented Dominga Coma Score 15 GERMAN Yes Left Pupil Description Regular Right Pupil Description Regular Left Pupil Reaction Brisk Right Pupil Reaction Brisk Pupil Size, Left 3 mm Pupil Size, Right 3 mm Strength All Extremities Moderate CN VII Facial Expression and Symmetry Facial movement symmetrical CN IX, X Swallowing, Gag Reflex Swallowing present Affect/Behavior Calm, Cooperative Orientation Oriented x 4 Orientation Assessment Oriented x 4 Activity Status ADL Awake, Repositions self Standard Safety ID band on, Call device within reach, Bed in low position, Wheels locked, Upper/Half-Length side-rails up, Phone within reach High Risk Safety Room check performed Demonstrates Correct Call Light Use Yes 08/08/2022 20:03 EDT Notify date/time 08/08/2022 20:03 Notification Method Answering service Information Communicated Nurse communication Details Communicated would you like alfredo given tonight, scheduled BONNIE for in the morning. Person Reporting Result(s) Cindy Nela RN 08/08/2022 16:35 EDT Discharge To, Anticipated Home with family care Transition Planning Note Transition Planning Ongoing Assessment 08/08/2022 16:13 EDT Apical Heart Rate 131 bpm >HHI metoprolol 100 mg mg 08/08/2022 16:10 EDT Heart Rate Monitored 126 bpm HI Respiratory Rate 20 br/min Systolic Blood Pressure Non-Invasive 114 mmHg Diastolic Blood Pressure Non-Invasive 69 mmHg Mean Arterial Pressure (NBP) 83 mmHg Reason For Taking VItal Signs Routine Primary Pain Intensity 0 Primary Pain Nonverbal Response Nods No Pain Scale Type 0-10 Pain scale Monitor Alarms On and Limits Checked Heart Sounds ICU S1S2 Heart Rhythm Regular Cardiac Rhythm Sinus tachycardia Monitoring Lead II, V1/MCL1 Alarms On and Functional Yes Heart Rate Alarm Set At - Low 50 Heart Rate Alarm Set At - High 120 NSBP Alarm Low 90 NSBP Alarm High 160 HI Oxygen Therapy Nasal cannula 0L-6L Oxygen Saturation 99 % Oxygen Flow Rate 2 Continuous IV Infusions Adapted Activity Status ADL Remains up in chair Standard Safety ID band on, Call device within reach, Bed in low position, Wheels locked, Upper/Half-Length side-rails up, Safety level maintained, Hazards removed from floor, Precautions maintained High Risk Safety Room located near nursing station, Door open, Room check performed Demonstrates Correct Call Light Use Yes 08/08/2022 14:59 EDT Dextrose 5% with 0.45% NaCl 160 mL mL 08/08/2022 14:49 EDT apixaban 5 mg mg polyethylene glycol 3350 17 gram(s) gram(s) water , tap 240 mL mL 08/08/2022 14:06 EDT Pulmonology Progress Note Progress Note 08/08/2022 13:46 EDT Heart Rate Monitored 128 bpm HI Oxygen Saturation 94 % Activity Status ADL Remains up in chair Standard Safety ID band on, Call device within reach, Bed in low position, Wheels locked, Upper/Half-Length side-rails up, Safety level maintained High Risk Safety Room check performed 08/08/2022 13:17 EDT [place] Body Weight 70 kg Appetite Excellent Nutrition Plan of Care Dietitian follow up/monitor, Encourage PO feedings, Participate in team conference Nutrition Follow-Up Needed Yes Days until Gear Setter Follow Up Seven days Adult Nutrition Initial Asmt/Plan Form Adult Nutrition Initial Asmt/Plan Form Adult Nutrition Initial Assessment/Plan Adult Nutrition Assessment/Plan 08/08/2022 12:57 EDT Bed Bath Moderate assistance Skin Care Done Skin Care Product Applied Shampoo/Body wash (no rinse) Sachi Care Moderate assistance Linen Change Done 08/08/2022 11:46 EDT Notify date/time 08/08/2022 11:46 Provider Notified MIEK RIVERA MD Notification Method Phone Information Communicated Nurse communication Details Communicated cardioversion is delayed until tomorrow. Should pt be restarted on HBW or eloquis? Notification Outcome Orders not received Person Reporting Result(s) Wilmar Details of Results Received Dr. Rivera will consult with cardiology and put orders in Results Read Back Yes 08/08/2022 11:42 EDT Temperature Oral 36.5 DegC Heart Rate Monitored 126 bpm HI Respiratory Rate 20 br/min Systolic Blood Pressure Non-Invasive 112 mmHg Diastolic Blood Pressure Non-Invasive 39 mmHg <LLOW Mean Arterial Pressure (NBP) 62 mmHg Primary Pain Intensity 0 Primary Pain Nonverbal Response Nods No Pain Scale Type 0-10 Pain scale Monitor Alarms On and Limits Checked Nail Bed Color [place] Capillary Refill < 2 seconds Heart Sounds ICU S1S2 Heart Rhythm Regular Dorsalis Pedis Pulse, Left 1+ Thready Dorsalis Pedis Pulse, Right 1+ Thready Radial Pulse, Left 2+ Normal Radial Pulse, Right 2+ Normal Leg edema Edema Ratin+ mild/4mm Cardiac Rhythm Sinus tachycardia Monitoring Lead II Alarms On and Functional Yes Heart Rate Alarm Set At - Low 50 Heart Rate Alarm Set At - High 120 NSBP Alarm Low 90 NSBP Alarm High 160 HI Respiratory Symptoms Shortness of breath Respirations Unlabored Respiratory Pattern Regular Breath Sounds Auscultated Anterior only All Lobes Breath Sounds Diminished Oxygen Therapy Nasal cannula 0L-6L Oxygen Saturation 93 % Oxygen Flow Rate 2 Tracheal Position Midline Abdomen Description Non-distended, Symmetric, Soft Abdomen Palpation Non-Tender Bowel Sounds All Quadrants Present Urinary Elimination Voiding, no difficulties Facial Movement Makes facial grimaces Skin Symptoms Bruising All Extremity Description [place] Skin Temperature Warm Temperature All Extremities Warm Skin Description [place] Skin Integrity Not intact Skin Turgor Non-Elastic Mucous Membrane Color [place] Mucous Membrane Description Moist Groin Right Skin Abnormality Type: Procedure site Wound Status: No complications Groin Bilateral Skin Abnormality Type: Excoriation Wound Status: No complications Continuous IV Infusions D5 0.45NS@20 Implanted port Right 19g 08/01/2022 Central IV Activity: Assessed Central IV Number of Lumens: Single Central IV Patency Proximal Port: Continuous infusion Central IV Dressing Condition: Dry, Intact Central IV Dressing / Activity: Port CHG dressing with proper placement Central IV Line Care: Alcohol port cap(s) in place, Date/time/initials present Central IV Site Condition: No complications Central IV Equipment: IV Pump Wrist Right 08/02/2022 20 gauge Peripheral IV Activity: Assessed Peripheral IV Dressing Condition: Clean, Dry, Intact Peripheral IV Dressing Activity: Transparent dressing Peripheral IV Line Status/Patency: Flushes easily Peripheral IV Site Condition: No complications Peripheral IV Equipment: PRN Adaptor Neurological Language Able to speak clearly Neurological Symptoms Patient denies Characteristics of Communication Appropriate Characteristics of Speech Clear Facial Symmetry Symmetric Level of Consciousness Arousable with minimal stimulation Eye Opening Response Norton Spontaneously Best Motor Response Dominga Obeys simple commands Best Verbal Response Norton Oriented Norton Coma Score 15 GERMAN Yes Left Pupil Description Regular Right Pupil Description Regular Left Pupil Reaction Brisk Right Pupil Reaction Brisk Pupil Size, Left 3 mm Pupil Size, Right 3 mm CN V Facial Sensation Corneal reflex present CN VII Facial Expression and Symmetry Facial movement symmetrical CN IX, X Swallowing, Gag Reflex Swallowing present Affect/Behavior Cooperative Orientation Oriented x 4 Orientation Assessment Oriented x 4 Activity Status ADL Up to chair Beds/Devices bariatric bed Assistive Equipment elevated on pillows Activity Assistance Moderate assistance Standard Safety ID band on, Call device within reach, Bed in low position, Wheels locked, Upper/Half-Length side-rails up, Safety level maintained High Risk Safety Room check performed Demonstrates Correct Call Light Use Yes Degrees Head of Bed Elevated 30 08/08/2022 11:05 EDT Transesophageal Echocardiogram - CV Ordered (In Progress) 08/08/2022 9:59 EDT Belongings At Bedside Cell phone, Shirt, Shoes, Undergarments Personal Home Medications Received No home medications were brought in Belongings Sent Home None Belongings to Security/Secured in Dept None Able To Drink Order Detail No Able To Sign Consents Order Detail Yes Code Status Order Detail Full code IV Order Detail Yes Dialysis Schedule Order Detail N/A Has Diabetes Order Detail No Isolation Precautions Order Detail None Nurse Collect Order Detail 0 Oxygen Order Detail Yes Order Detail N/A Prior Valve Replacement Order Detail No Transport Mode Order Detail MTT with Monitor Can Top Setter Details Form Can Top Setter Details Form 08/08/2022 9:45 EDT Apical Heart Rate 129 bpm >HHI Lidoderm Patch REMOVAL 1 EA EA menthol topical 1 julia julia metoprolol 100 mg mg miconazole topical 1 julia julia Nicoderm Patch REMOVAL 1 EA EA nicotine 14 mg mg 08/08/2022 9:42 EDT apixaban Not Done: Not Appropriate at this Time (Not Done) lidocaine topical Not Done: Not Appropriate at this Time (Not Done) 08/08/2022 9:33 EDT WBC 11.3 10^3/mcL HI RBC 3.99 10^6/mcL LOW Hgb 12.7 G/dL LOW Hct 39.0 % LOW MCV 97.7 fL MCH 31.8 pg MCHC 32.6 G/dL RDW 14.8 % Platelet 245 10^3/mcL MPV 8.0 fL Neutrophil % 71.8 % Lymphocyte % 12.9 % LOW Monocyte % 12.2 % Eosinophil % 2.1 % Basophil % 1.0 % Neutrophil, Absolute 8.1 10^3/mcL Lymphocyte, Absolute 1.4 10^3/mcL Monocyte, Absolute 1.4 10^3/mcL Eosinophil, Absolute 0.2 10^3/mcL Basophil, Absolute 0.1 10^3/mcL Glucose Level 101 mg/dL Sodium Level 137 mEq/L Potassium Level 4.8 mEq/L Chloride 100 mEq/L CO2 34 mEq/L HI Electrolyte Balance 3.0 mEq/L LOW BUN 25.0 mg/dL HI Creatinine Lvl (s) 1.25 mg/dL BUN/Creatinine Ratio 20.0 ratio Calcium Lvl 8.8 mg/dL Magnesium Lvl 1.9 mg/dL GFR Non- >60 ml/min/1.73sqm NA GFR >60 ml/min/1.73sqm NA Creatinine Clearance Calc 73.02 mL/min 08/08/2022 9:16 EDT Temperature Oral 36.7 DegC Heart Rate Monitored 126 bpm HI Respiratory Rate 20 br/min Systolic Blood Pressure Non-Invasive 115 mmHg Diastolic Blood Pressure Non-Invasive 81 mmHg Mean Arterial Pressure (NBP) 92 mmHg Reason For Taking VItal Signs Routine Primary Pain Intensity 2 Primary Pain Nonverbal Response Nods No Pain Scale Type 0-10 Pain scale Monitor Alarms On and Limits Checked Nail Bed Color [place] Capillary Refill < 2 seconds Heart Sounds ICU S1S2 Heart Rhythm Regular Dorsalis Pedis Pulse, Left 1+ Thready Dorsalis Pedis Pulse, Right 1+ Thready Radial Pulse, Left 2+ Normal Radial Pulse, Right 2+ Normal Leg edema Edema Ratin+ mild/4mm Cardiac Rhythm Sinus tachycardia Monitoring Lead II, V1/MCL1 Alarms On and Functional Yes Heart Rate Alarm Set At - Low 50 Heart Rate Alarm Set At - High 120 NSBP Alarm Low 90 NSBP Alarm High 160 HI Respirations Unlabored Respiratory Pattern Regular Patient Airway Status Patent with support Breath Sounds Auscultated Anterior only All Lobes Breath Sounds Clear, Diminished Sputum Amount Small Sputum Color Blood-Tinged Sputum Consistency Thick Oxygen Therapy Nasal cannula 0L-6L Oxygen Saturation 92 % LOW Oxygen Flow Rate 2 Tracheal Position Midline Abdomen Description Non-distended Abdomen Palpation Non-Tender Bowel Sounds All Quadrants Present Urinary Elimination Voiding, no difficulties Facial Movement Symmetric resting/crying Skin Symptoms Bruising All Extremity Description [place], Normal for ethnicity Skin Temperature Warm Temperature All Extremities Warm Skin Description [place], Normal for ethnicity Skin Integrity Not intact Skin Turgor Non-Elastic Mucous Membrane Color [place] Mucous Membrane Description Moist Sensory Perception [place] Slightly limited Moisture Har[place] Rarely moist Activity Haroon Walks occasionally Mobility Har[place] Slightly limited Nutrition Har[place] Probably inadequate Friction and Shear Haroon No apparent problem Haroon Score 18 Hospital Acquired Pressure Injury Risk Low risk (score 15-18) Groin Right Skin Abnormality Type: Procedure site Wound Status: No complications Groin Bilateral Skin Abnormality Type: Excoriation Incision, Wound Dressing/Activity: Assessed Incision, Wound Dressing: Open to air Wound Status: No complications Continuous IV Infusions D5 0.45NS@20 Implanted port Right 19g 08/01/2022 Central IV Activity: Assessed Central IV Number of Lumens: Single Central IV Patency Proximal Port: Flushes easily, Good blood return Central IV Dressing Condition: Clean, Dry, Intact Central IV Dressing / Activity: Port CHG dressing with proper placement Central IV Line Care: Alcohol port cap(s) in place, Needleless Protector End Cap(s) in place Central IV Site Condition: No complications Central IV Equipment: IV Pump Wrist Right 08/02/2022 20 gauge Peripheral IV Activity: Assessed Peripheral IV Dressing Condition: Clean, Dry, Intact Peripheral IV Dressing Activity: Transparent dressing Peripheral IV Line Status/Patency: Flushes easily Peripheral IV Site Condition: No complications Peripheral IV Equipment: PRN Adaptor Neurological Language Able to speak clearly Neurological Symptoms Patient denies Gait Steady Extremity Movement Equal Swallowing Difficulty None Characteristics of Communication Appropriate Characteristics of Speech Clear Facial Symmetry Symmetric Level of Consciousness Alert Aspiration Risk None Eye Opening Response [place] Spontaneously Best Motor Response Dominga Obeys simple commands Best Verbal Response Norton Oriented Norton Coma Score 15 GERMAN Yes Left Pupil Description Regular Right Pupil Description Regular Left Pupil Reaction Brisk Right Pupil Reaction Brisk Pupil Size, Left 3 mm Pupil Size, Right 3 mm Strength All Extremities Moderate Left Upper Extremity Sensation Intact Right Upper Extremity Sensation Intact Left Lower Extremity Sensation Intact Right Lower Extremity Sensation Intact CN V Facial Sensation Corneal reflex present CN VII Facial Expression and Symmetry Facial movement symmetrical CN VIII Hearing Spoken word equally audible left/right CN IX, X Swallowing, Gag Reflex Swallowing present, Gag reflex present Campa Screen Daily History of Fall in Last 3 Months [place] No Presence of Secondary Diagnosis [place] Yes Use of Ambulatory Aid [place] None, bedrest, wheelchair, nurse IV/PRN Adapter Fall Risk [place] Yes Gait Weak or Impaired Fall Risk [place] Normal, bedrest, immobile Mental Status Fall Risk [place] Oriented to own ability [place] Fall Risk Score 35 Violence Risk Confused No Violence Risk Irritable No Violence Risk Boisterous No Violence Risk Verbal Threats No Violence Risk Physical Threats No Violence Risk Attacking Objects No Violence Risk Predictor Score 0 Violence Risk Intervention None Violence Risk Current Interventions None Affect/Behavior Appropriate, Calm, Cooperative Orientation Oriented x 4 Orientation Assessment Oriented x 4 Activity Status ADL Up to chair Beds/Devices bariatric bed Assistive Equipment elevated on pillows Activity Assistance Moderate assistance Skin Care Preventative Intervention(s) heel(s)s elevated Standard Safety ID band on, Allergy Band on, Call device within reach, Bed in low position, Wheels locked, Upper/Half-Length side-rails up, Phone within reach, personal items within reach High Risk Safety Room check performed Demonstrates Correct Call Light Use Yes Degrees Head of Bed Elevated 30 08/08/2022 9:00 EDT Basic Command Following Intact Assist Level-Lower Extremity Bathing Moderate assistance Device/Equipment-Lower Extremity Bathin None Level-Lower Extremity Bathing Other: seated/standing Assist Level-Lower Extremity Dressing Total A Device/Equipment-Lower Extremity Dressi None Level-Lower Extremity Dressing Seated OT Transfer Device None Transfer Sit to Stand Mod I Transfer Stand to Sit Mod I Other Mobility Training Other Mobility Training Ambulation Level Mod I Ambulation Distance 120 ft Ambulation Device Utilized None Ambulation Quality Ambulation Quality Stairs Ambulation Assist Mod I Number of Stairs 3 Stair Railing Utilized None Orientation Assessment Oriented x 4 Orientation Assessment Oriented x 4 Worker's Comp Patient No Worker's Comp Patient No OT Education Grid OT Education Grid PT Education Grid PT Education Grid OT Treatment Patient Response Nsg ok'd tx Pt in chair, agreed to tx. Pt c/o some SOB, but doing "ok." Pt left in chair in care of nsg. OT Treatment Response Pt progressing with ADL's, standing, mobility. No goals met. Pt SOB with activity, tolerated increased mobility. Cont poc to progress ind with self care General Cognition WFL OT Sit to Stand Mod I OT Stand to Sit Mod I OT Ambulation Level Mod I OT Device Utilized None Put On Take Off Upper Body Clothing A Little (3) Put On Take Off Lower Body Clothing A Lot (2) Bathing? A Lot (2) Toileting? A Little (3) Take Care Of Personal Grooming None (4) Eating Meals None (4) OT Update Discharge Recommendation No OT Initiate/Continue Treatment Yes OT Goals OT Goals PT Treatment Response Pt showing indp with all mobiltiy seen, able to increase gait distance and initaited steps. Will continue to improve endurance/balance to ensure indp. pt returned to sitting, call light in reach. PT Treatment Patient Response pt sitting in chair, agrees to tx. going to procedure soon Turning Over In Bed None (4) Sit Down/Stand Up From Chair with Arms None (4) Move From Back To Sit On Bedside None (4) Moving To And From Bed To Chair None (4) Need To Walk In Hospital Room None (4) Climbing 3-5 Steps With A Railing None (4) PT Update Discharge Recommendation No PT Initiate/Continue Treatment Yes Therapy Pain Intensity 0 Therapy Pain Intensity 0 Mobility/Balance Training Provided Yes OT ADL Training Provided Yes OT Balance Training Provided Yes OT Functional Mobility Provided Yes Balance Training Yes Static Sitting Independent Dynamic Sitting Mod I Static Standing Independent Dynamic Standing Mod I Therapy Patient Monitors Pulse Oximeter, hall monitor Basic Mobility Raw Score 24 Daily Activity Raw Score 18 Occupational Therapy Daily Note Form Occupational Therapy Daily Note Form Physical Therapy Daily Notes Form Physical Therapy Daily Notes Form Physical Therapy Progress Note Physical Therapy Daily Notes Occupational Therapy Progress Note OT Daily Note 08/08/2022 8:[address] Adams's [place] Preanesthesia Evaluation* 08/08/2022 8:49 EDT Hospitalist Progress Note Progress Note (Modified) 08/08/2022 8:19 EDT Mechanical VTE Prophylaxis Education Not Done: Task Duplication (Not Done) Sequential Compression Device Form Not Done (Not Done) 08/08/2022 7:30 EDT Pain Scale Assessment 0-10 Pain scale Primary Pain Location Generalized Primary Pain Intensity 0 Reason for PRN medication Pain management PRN medication effectiveness Yes PRN Medication Effectiveness Evaluation PRN Medication Effectiveness Evaluation 08/08/2022 7:11 EDT Oxygen Therapy Nasal cannula 0L-6L Oxygen Activity Oxygen On Oxygen Flow Rate 2 08/08/2022 7:00 EDT Oral Intake 760 mL Urine Voided 600 mL Urine Voided 325 mL 08/08/2022 6:08 EDT Mechanical VTE Prophylaxis Education Not Done: Task Duplication (Not Done) Sequential Compression Device Form Not Done (Not Done) 08/08/2022 6:07 EDT Individuals Taught Patient Learning Readiness low motivation level Barriers to Learning None evident Teaching Method Explanation, Teach-back Teaching Evaluation Verbalizes/Nonverbally indicates understanding Identify Action of Anticoagulant Yes Identify Reason/Purpose of Anticoagulant Yes Reason/Purpose of Anticoagulant Rx or prevent blood clots Identify Generic and Trade Names of Med Not done this session 08/08/2022 5:42 EDT Primary Pain Intensity 7 Activity Status ADL Awake, Remains up in chair Standard Safety ID band on, Allergy Band on, Call device within reach, Bed in low position, Wheels locked, Safety level maintained High Risk Safety Room check performed Demonstrates Correct Call Light Use Yes COVID 19 Surge in Effect Yes oxyCODONE 10 mg mg 08/08/2022 4:20 EDT Violence Risk Confused No Violence Risk Irritable No Violence Risk Boisterous No Violence Risk Verbal Threats No Violence Risk Physical Threats No Violence Risk Attacking Objects No Violence Risk Predictor Score 0 Violence Risk Intervention None Violence Risk Current Interventions None Able To Drink Order Detail No Able To Sign Consents Order Detail Yes Code Status Order Detail Full code IV Order Detail No Dialysis Schedule Order Detail N/A Has Diabetes Order Detail No Isolation Precautions Order Detail None Nurse Collect Order Detail 0 Oxygen Order Detail No Order Detail N/A Prior Valve Replacement Order Detail No Transport Mode Order Detail MTT with Monitor Can Top Setter Details Form Can Top Setter Details Form 08/08/2022 4:19 EDT Mechanical VTE Prophylaxis Education Not Done: Task Duplication (Not Done) Sequential Compression Device Form Not Done (Not Done) 08/08/2022 4:17 EDT Implanted port Right 19g 08/01/2022 Central IV Activity: Assessed Central IV Number of Lumens: Single Central IV Patency Proximal Port: Continuous infusion Central IV Dressing Condition: Clean, Dry, Intact Central IV Dressing / Activity: Port CHG dressing with proper placement Central IV Line Care: Alcohol port cap(s) in place Central IV Site Condition: No complications Central IV Equipment: IV Pump, PRN Adaptor Wrist Right 08/02/2022 20 gauge Peripheral IV Activity: Assessed Peripheral IV Dressing Condition: Dry, Intact Peripheral IV Dressing Activity: Transparent dressing Peripheral IV Line Status/Patency: Flushes easily Peripheral IV Site Condition: No complications Peripheral IV Equipment: PRN Adaptor 08/08/2022 4:15 EDT Temperature Oral 36.8 DegC Heart Rate Monitored 127 bpm HI Respiratory Rate 20 br/min Systolic Blood Pressure Non-Invasive 129 mmHg Diastolic Blood Pressure Non-Invasive 81 mmHg Mean Arterial Pressure (NBP) 95 mmHg Primary Pain Location Lower back Primary Pain Intensity 3 Primary Pain Pharma Intervention Medication Pain Scale Type 0-10 Pain scale Heart Sounds ICU [id number] Heart Rhythm Regular Alarms On and Functional Yes Heart Rate Alarm Set At - Low 50 Heart Rate Alarm Set At - High 120 Respirations Unlabored Respiratory Pattern Regular Breath Sounds Auscultated Anterior only All Lobes Breath Sounds Diminished, Equal Cough Persistent, Productive, Able to clear secretions Sputum Amount Small Sputum Color Blood-Tinged Sputum Consistency Thick Oxygen Therapy Humidification, Nasal cannula 0L-6L Oxygen Saturation 100 % Oxygen Flow Rate 2 Tracheal Position Midline Neurological Symptoms Patient denies Level of Consciousness Arousable with minimal stimulation Eye Opening Response [place] Spontaneously Best Motor Response Dominga Obeys simple commands Best Verbal Response Dominga Oriented Dominga Coma Score 15 GERMAN Yes Affect/Behavior Appropriate, Calm, Cooperative Orientation Oriented x 4 Activity Status ADL Remains up in chair Standard Safety ID band on, Allergy Band on, Call device within reach, Bed in low position, Wheels locked, Safety level maintained High Risk Safety Room check performed Demonstrates Correct Call Light Use Yes COVID 19 Surge in Effect Yes 08/08/2022 4:05 EDT Rise Time 2 second(s) Respiratory Rate Total 22 br/min Noninvasive Frequency, Mandatory 8 br/min Noninvasive FiO2 30 % Noninvasive Tidal Volume, Exhaled 0.468 L Noninvasive Minute Volume 7.7 L/min Non-Invasive Inspiratory Time (IT) 0.8 second(s) Mask/ETT Selection 1 Exhalation port selection Other: Non Invasive On and Functional Yes Non Invasive Vent Apnea 20 second(s) Non InvasiveVent Low Pressure/Disconnect 8 cmH20 Non InvasiveVent High Pressure 26 cmH20 Non InvasiveVent Low Rate 8 br/min Non InvasiveVent High Rate 40 br/min Non InvasiveVent Low Minute Volume 2 L/min BiPAP/CPAP Mode BiPAP BiPAP/CPAP Machine Model Kristen V60 BiPAP/CPAP Machine ID [id number] Estimated Leak 4 L/min Mask/Delivery Type Full face mask Mask Size Large Patient Tolerance BiPAP/CPAP Well Nares Condition on BIPAP/CPAP No breakdown noted Inspiratory Pressure 15 cmH20 Expiratory Pressure 8 cmH20 08/08/2022 3:19 EDT Activity Status ADL Sleeping Standard Safety ID band on, Allergy Band on, Call device within reach, Bed in low position, Wheels locked, Upper/Half-Length side-rails up, Phone within reach, personal items within reach, Safety level maintained High Risk Safety Room check performed Demonstrates Correct Call Light Use Yes COVID 19 Surge in Effect Yes 08/08/2022 2:08 EDT Activity Status ADL Remains up in chair, Sleeps intermittently Standard Safety ID band on, Allergy Band on, Call device within reach, Bed in low position, Wheels locked, Upper/Half-Length side-rails up, Phone within reach, personal items within reach, Safety level maintained High Risk Safety Room check performed Demonstrates Correct Call Light Use Yes COVID 19 Surge in Effect Yes 08/08/2022 2:05 EDT heparin unit(s)/kg/hr unit(s) Dextrose 5% Premix Diluent Dextrose 5% Premix Diluent mL 08/08/2022 1:27 EDT Heparin dose (APTT) Unknown APTT 123.0 seconds CRIT 08/08/2022 0:19 EDT Apical Heart Rate 128 bpm >HHI lidocaine topical 1 patch(es) patch(es) metoprolol 100 mg mg 08/08/2022 0:17 EDT Activity Status ADL Remains up in chair, Sleeps intermittently Standard Safety ID band on, Allergy Band on, Call device within reach, Bed in low position, Wheels locked, Upper/Half-Length side-rails up, Phone within reach, personal items within reach, Safety level maintained High Risk Safety Room check performed Demonstrates Correct Call Light Use Yes COVID 19 Surge in Effect Yes 08/08/2022 0:15 EDT Heart Rate Monitored 129 bpm HI Respiratory Rate 21 br/min HI Systolic Blood Pressure Non-Invasive 133 mmHg Diastolic Blood Pressure Non-Invasive 88 mmHg Reason For Taking VItal Signs Routine Primary Pain Location Lower back Primary Pain Intensity 6 Primary Pain Pharma Intervention Medication Pain Scale Type 0-10 Pain scale Cardiac Rhythm Sinus tachycardia Monitoring Lead II, V5/MCL5 [place] Interval 0.12 second(s) QRS Duration 0.09 second(s) QT Interval 0.30 second(s) QTc Interval 0.44 second(s) Respirations Unlabored Respiratory Pattern Regular Breath Sounds Auscultated Anterior and posterior All Lobes Breath Sounds Clear, Diminished Oxygen Therapy BiPAP Oxygen Saturation 100 % Facial Movement Symmetric resting/crying Neurological Language Able to speak clearly Neurological Symptoms Patient denies Characteristics of Communication Appropriate Characteristics of Speech Clear Facial Symmetry Symmetric Level of Consciousness Arousable with minimal stimulation CN V Facial Sensation Corneal reflex present CN VII Facial Expression and Symmetry Facial movement symmetrical CN IX, X Swallowing, Gag Reflex Swallowing present Affect/Behavior Appropriate, Calm, Cooperative Orientation Oriented x 4 . Assessment and Plan [place] [employer] (ASA) physical status classification: Class III. Anesthetic Preoperative Plan Premedication: intravenous. Anesthetic technique: General. Induction: intravenously. Maintenance airway: Mask. Special techniques. Special Monitoring. Postoperative pain management: Per surgeon. Risks discussed: nausea, vomiting, headache, sore throat, dental injury, hypotension, allergic reaction, serious complications, Heart Problems, Lung Problems, Stroke, Intraoperative Recall, . Informed consent: signed by patient. After completion of focused history and physical examination, anesthetic options with their inherent risks and benefits were discussed. Common minor and rare but serious or potentially life-threatening complications were included in this discussion(Specific items discussed: nausea, sore throat, dysphagia, heart problems, lung problems, strokes, heart attacks, intraoperative recall and ). All of the patient's questions were answered. The patient verbalizes understanding of the agreed upon anesthetic plan and agrees to proceed. Digitally Signed by MAR BERNARD MD on 08/09/2022 12:06 PM Digitally Signed by MAR BERNARD MD on 08/09/2022 12:08 PM * MAR BERNARD MD: PERFORM, SIGN, VERIFY Event Display: Anesthesiology Consultation Authored Date: [id number] Patient: LYNDSAY LOPEZ Age: 42 years Sex: Male : 1980 Associated Diagnoses: None Author: MAR BERNARD MD Postoperative Information Post Operative Info: Post op day: Post Anesthesia Care Unit. Patient location: OR Holding. Assessment Postanesthesia assessment Vitals: Vital signs from flowsheet : Vital Signs 08/09/2022 11:19 EDT Heart Rate Monitored 122 bpm HI Respiratory Rate 20 br/min Systolic Blood Pressure Non-Invasive 124 mmHg Diastolic Blood Pressure Non-Invasive 98 mmHg HI Blood Pressure Method Automatic Blood Pressure Location Left arm 08/09/2022 11:15 EDT Heart Rate Monitored 122 bpm HI Respiratory Rate 20 br/min Systolic Blood Pressure Non-Invasive 113 mmHg Diastolic Blood Pressure Non-Invasive 87 mmHg Blood Pressure Method Automatic Blood Pressure Location Left arm 08/09/2022 11:13 EDT Systolic Blood Pressure Non-Invasive 102 mmHg mmHg Diastolic Blood Pressure Non-Invasive 73 mmHg mmHg 08/09/2022 11:10 EDT Heart Rate Monitored 122 bpm bpm 08/09/2022 11:09 EDT Systolic Blood Pressure Non-Invasive 96 mmHg mmHg Diastolic Blood Pressure Non-Invasive 78 mmHg mmHg 08/09/2022 11:06 EDT Systolic Blood Pressure Non-Invasive 95 mmHg mmHg Diastolic Blood Pressure Non-Invasive 65 mmHg mmHg 08/09/2022 11:05 EDT Heart Rate Monitored 120 bpm bpm 08/09/2022 11:04 EDT Systolic Blood Pressure Non-Invasive 91 mmHg mmHg Diastolic Blood Pressure Non-Invasive 62 mmHg mmHg 08/09/2022 11:00 EDT Heart Rate Monitored 124 bpm bpm Systolic Blood Pressure Non-Invasive 90 mmHg mmHg Diastolic Blood Pressure Non-Invasive 72 mmHg mmHg 08/09/2022 10:57 EDT Systolic Blood Pressure Non-Invasive 93 mmHg mmHg Diastolic Blood Pressure Non-Invasive 72 mmHg mmHg 08/09/2022 10:55 EDT Heart Rate Monitored 123 bpm bpm Systolic Blood Pressure Non-Invasive 97 mmHg mmHg Diastolic Blood Pressure Non-Invasive 69 mmHg mmHg 08/09/2022 10:51 EDT Systolic Blood Pressure Non-Invasive 112 mmHg mmHg Diastolic Blood Pressure Non-Invasive 88 mmHg mmHg 08/09/2022 10:50 EDT Heart Rate Monitored 123 bpm bpm 08/09/2022 10:49 EDT Systolic Blood Pressure Non-Invasive 97 mmHg mmHg Diastolic Blood Pressure Non-Invasive 82 mmHg mmHg 08/09/2022 10:45 EDT Heart Rate Monitored 126 bpm bpm Systolic Blood Pressure Non-Invasive 142 mmHg mmHg Diastolic Blood Pressure Non-Invasive 101 mmHg mmHg 08/09/2022 10:42 EDT Systolic Blood Pressure Non-Invasive 126 mmHg mmHg Diastolic Blood Pressure Non-Invasive 90 mmHg mmHg 08/09/2022 10:40 EDT Heart Rate Monitored 126 bpm bpm 08/09/2022 8:03 EDT Apical Heart Rate 128 bpm >HHI 08/09/2022 7:49 EDT Temperature Oral 36.9 DegC Heart Rate Monitored 128 bpm HI Respiratory Rate 18 br/min Systolic Blood Pressure Non-Invasive 121 mmHg Diastolic Blood Pressure Non-Invasive 85 mmHg Mean Arterial Pressure (NBP) 98 mmHg Reason For Taking VItal Signs Routine 08/09/2022 4:17 EDT Temperature Oral 36.8 DegC Heart Rate Monitored 127 bpm HI Respiratory Rate 18 br/min Systolic Blood Pressure Non-Invasive 120 mmHg Diastolic Blood Pressure Non-Invasive 86 mmHg Mean Arterial Pressure (NBP) 97 mmHg Reason For Taking VItal Signs Routine 08/09/2022 1:03 EDT Apical Heart Rate 129 bpm >HHI 08/09/2022 0:53 EDT Temperature Oral 37.1 DegC Peripheral Pulse Rate 132 bpm >HHI Respiratory Rate 18 br/min Systolic Blood Pressure Non-Invasive 124 mmHg Diastolic Blood Pressure Non-Invasive 78 mmHg 08/08/2022 20:14 EDT Temperature Oral 36.8 DegC Heart Rate Monitored 128 bpm HI Respiratory Rate 20 br/min Systolic Blood Pressure Non-Invasive 144 mmHg HI Diastolic Blood Pressure Non-Invasive 80 mmHg Mean Arterial Pressure (NBP) 98 mmHg Reason For Taking VItal Signs Routine 08/08/2022 16:13 EDT Apical Heart Rate 131 bpm >HHI 08/08/2022 16:10 EDT Heart Rate Monitored 126 bpm HI Respiratory Rate 20 br/min Systolic Blood Pressure Non-Invasive 114 mmHg Diastolic Blood Pressure Non-Invasive 69 mmHg Mean Arterial Pressure (NBP) 83 mmHg Reason For Taking VItal Signs Routine 08/08/2022 13:46 EDT Heart Rate Monitored 128 bpm HI 08/08/2022 11:42 EDT Temperature Oral 36.5 DegC Heart Rate Monitored 126 bpm HI Respiratory Rate 20 br/min Systolic Blood Pressure Non-Invasive 112 mmHg Diastolic Blood Pressure Non-Invasive 39 mmHg <LLOW Mean Arterial Pressure (NBP) 62 mmHg 08/08/2022 9:45 EDT Apical Heart Rate 129 bpm >HHI 08/08/2022 9:16 EDT Temperature Oral 36.7 DegC Heart Rate Monitored 126 bpm HI Respiratory Rate 20 br/min Systolic Blood Pressure Non-Invasive 115 mmHg Diastolic Blood Pressure Non-Invasive 81 mmHg Mean Arterial Pressure (NBP) 92 mmHg Reason For Taking VItal Signs Routine 08/08/2022 4:15 EDT Temperature Oral 36.8 DegC Heart Rate Monitored 127 bpm HI Respiratory Rate 20 br/min Systolic Blood Pressure Non-Invasive 129 mmHg Diastolic Blood Pressure Non-Invasive 81 mmHg Mean Arterial Pressure (NBP) 95 mmHg 08/08/2022 0:19 EDT Apical Heart Rate 128 bpm >HHI 08/08/2022 0:15 EDT Heart Rate Monitored 129 bpm HI Respiratory Rate 21 br/min HI Systolic Blood Pressure Non-Invasive 133 mmHg Diastolic Blood Pressure Non-Invasive 88 mmHg Reason For Taking VItal Signs Routine , Oxygen Therapy : Oxygen Therapy & Oxygenation Information 08/09/2022 11:19 EDT Oxygen Therapy Venti-Mask Oxygen Saturation 99 % Oxygen Flow Rate 8 08/09/2022 11:15 EDT Oxygen Therapy Venti-Mask Oxygen Saturation 99 % Oxygen Flow Rate 10 08/09/2022 11:10 EDT Oxygen Saturation 97.8 % % 08/09/2022 11:05 EDT Oxygen Saturation 78.3 % % 08/09/2022 11:00 EDT Oxygen Saturation 97.2 % % 08/09/2022 10:55 EDT Oxygen Saturation 92.6 % % 08/09/2022 10:50 EDT Oxygen Saturation 97.7 % % 08/09/2022 10:45 EDT Oxygen Saturation 100 % % 08/09/2022 10:40 EDT Oxygen Saturation 99.1 % % 08/09/2022 10:35 EDT Oxygen Saturation 98.8 % % 08/09/2022 7:49 EDT Oxygen Therapy Nasal cannula 0L-6L Oxygen Saturation 100 % Oxygen Flow Rate 2 08/09/2022 7:16 EDT Oxygen Therapy Nasal cannula 0L-6L Oxygen Activity Oxygen On Oxygen Flow Rate 2 08/09/2022 4:17 EDT Oxygen Therapy Nasal cannula 0L-6L Oxygen Saturation 99 % Oxygen Flow Rate 2 08/09/2022 1:09 EDT Inspiratory Pressure 15 cmH20 Expiratory Pressure 8 cmH20 08/09/2022 1:03 EDT Oxygen Therapy BiPAP 08/09/2022 0:53 EDT Oxygen Therapy Nasal cannula 0L-6L Oxygen Saturation 98 % Oxygen Flow Rate 2 08/08/2022 20:14 EDT Oxygen Therapy Nasal cannula 0L-6L Oxygen Saturation 99 % Oxygen Flow Rate 2 08/08/2022 16:10 EDT Oxygen Therapy Nasal cannula 0L-6L Oxygen Saturation 99 % Oxygen Flow Rate 2 08/08/2022 13:46 EDT Oxygen Saturation 94 % 08/08/2022 11:42 EDT Oxygen Therapy Nasal cannula 0L-6L Oxygen Saturation 93 % Oxygen Flow Rate 2 08/08/2022 9:16 EDT Oxygen Therapy Nasal cannula 0L-6L Oxygen Saturation 92 % LOW Oxygen Flow Rate 2 08/08/2022 7:11 EDT Oxygen Therapy Nasal cannula 0L-6L Oxygen Activity Oxygen On Oxygen Flow Rate 2 08/08/2022 4:15 EDT Oxygen Therapy Humidification, Nasal cannula 0L-6L Oxygen Saturation 100 % Oxygen Flow Rate 2 08/08/2022 4:05 EDT Inspiratory Pressure 15 cmH20 Expiratory Pressure 8 cmH20 08/08/2022 0:15 EDT Oxygen Therapy BiPAP Oxygen Saturation 100 % . Mental status: at preoperative baseline. Respiratory function: respirations are non-labored, Stable. Respiratory support: none. CV function: Stable. Cardiovascular support: none. Pain: Satisfactory. Nausea status: Satisfactory. Postoperative hydration status: within normal limits. Notes: Patient is sufficiently recovered from anesthesia to participate in the evaluation. No follow-up care needed. No complications post-anesthesia.. Digitally Signed by MAR BERNARD MD on 08/09/2022 12:03 PM * NORMA DAUGHERTY DO: PERFORM, SIGN, VERIFY Event Display: Anesthesiology Consultation Authored Date: [id number] Patient: LYNDSAY LOPEZ Age: 42 years Sex: Male : 1980 Associated Diagnoses: None Author: NORMA DAUGHERTY DO Preoperative Information Greater than 6 hours Anesthesia history Patient's history: negative. Family's history: negative. Review of Systems Ear/Nose/Mouth/Throat: Negative except as documented in history of present illness. Respiratory: Negative except as documented in history of present illness. Cardiovascular: Negative except as documented in history of present illness. Gastrointestinal: Negative except as documented in history of present illness. Genitourinary: Negative except as documented in history of present illness. Endocrine: Negative except as documented in history of present illness. Musculoskeletal: Negative except as documented in history of present illness. Integumentary: Negative except as documented in history of present illness. Neurologic: Negative except as documented in history of present illness. Health Status Allergies: Allergic Reactions (Selected) Severity Not Documented Penicillin- Swelling., Allergies (1) ActiveReaction penicillinSwelling Current medications: (Selected) Inpatient Medications Ordered Biofreeze gel packet: Start: 08/04/22 9:00:00 EDT, Dose = 1 julia, Topical, qDay, Apply to: right lower back, Gel, 08/04/22 9:00:00 EDT D51/2NS 1,000 mL: Start: 08/07/22 12:47:00 EDT, Rate: 20 mL/hr, 08/07/22 12:47:00 EDT Heparin HBW Bolus 5000 units/mL: Start: 08/01/22 22:01:00 EDT, Dose = 6,360 unit(s), = 1.27 mL, IV Push, q6h, PRN, Protocol, Weight Based Heparin, 08/01/22 22:01:00 EDT Heparin HBW Bolus 5000 units/mL: Start: 08/01/22 22:01:00 EDT, Dose = 8,750 unit(s), = 1.75 mL, IV Push, q6h, PRN, Protocol, Weight Based Heparin, 08/01/22 22:01:00 EDT Heparin for IV 25,000 unit(s) [15.723 unit(s)/kg/hr] + Dextrose 5% Premix Diluent 250 mL: Start: 08/01/22 22:01:00 EDT, Rate: 25 mL/hr, 08/01/22 22:01:00 EDT Lopressor: Start: 08/06/22 16:00:00 EDT, Dose = 100 mg, = 1 tab(s), Oral, q8h, Hold if SBP (mmHg) < 90, Hold if HR (bpm) < 60, 0, 08/06/22 8:17:00 EDT Miralax Powder Packet: Start: 08/04/22 9:05:00 EDT, Dose = 17 gram(s), = 15 mL, Oral, BID, PRN, Constipation, 08/04/22 9:05:00 EDT Nicoderm C-Q 14 mg/24 hr transdermal film, extended release: Start: 08/02/22 9:00:00 EDT, Dose = 1 patch(es), ER Film, Transdermal, q24h, 14 day(s), Stop: 08/15/22 9:00:00 EDT, 08/02/22 8:49:00 EDT Tylenol: Start: 08/03/22 15:50:00 EDT, Dose = 650 mg, = 2 tab(s), Oral, q4h, PRN, Pain, scale 1-3, 08/03/22 15:50:00 EDT Zofran: Start: 08/03/22 15:50:00 EDT, Dose = 4 mg, = 2 mL, IV Push, q4h, PRN, Nausea/Vomiting, 08/03/22 15:50:00 EDT lidocaine (lidocaine Patch REMOVAL): Start: 08/08/22 9:00:00 EDT, q24h, 08/04/22 20:59:00 EDT lidocaine 1% preservative-free injectable solution: Start: 08/07/22 13:00:00 EDT, Dose = 2.5 mg, = 0.25 mL, Intradermal, prep pharm, 08/07/22 12:47:00 EDT lidocaine 4% topical patch: Start: 08/07/22 21:00:00 EDT, Dose = 1 patch(es), Film, Transdermal, q24h, Apply to: right lower back, 08/04/22 8:59:00 EDT melatonin: Start: 08/02/22 8:50:00 EDT, Dose = 5 mg, = 1 tab(s), Oral, qHS, PRN, Sleep, 08/02/22 8:50:00 EDT miconazole 2% topical powder: Start: 08/04/22 1:26:00 EDT, Dose = 1 julia, Topical, BID, Apply to: groin, Powder, 08/04/22 1:26:00 EDT nicotine (Nicoderm Patch REMOVAL): Start: 08/03/22 9:00:00 EDT, q24h, 08/03/22 8:49:00 EDT oxyCODONE 5 mg oral tablet ( IMMEDIATE release ): Start: 08/04/22 9:06:00 EDT, Dose = 10 mg, = 2 tab(s), Oral, q4h, PRN, Pain, scale 7-10, 08/04/22 9:06:00 EDT oxyCODONE 5 mg oral tablet ( IMMEDIATE release ): Start: 08/04/22 9:06:00 EDT, Dose = 5 mg, = 1 tab(s), Oral, q4h, PRN, Pain, scale 4-6, 08/04/22 9:06:00 EDT senna: Start: 08/04/22 9:06:00 EDT, Dose = 8.6 mg, = 1 tab(s), Oral, qDay, PRN, Constipation, 08/04/22 9:06:00 EDT Future EPINEPHrine 1 mg/mL injectable solution: Start: 08/04/22 7:00:00 EDT, Dose = 0.3 mg, = 0.3 mL, Intramuscular INF, Once, PRN, Other (see order comments), Routine, Stop: 08/05/22 6:59:00 EDT, Order forfuture visit, 0, Day 1, 08/04/22 7:00:00 EDT NS 1000 mL Bolus: Start: 08/04/22 7:00:00 EDT, Dose = 1,000 mL, Soln, IV Bolus, Once, PRN, Other (see order comments), Routine, Stop: 08/05/22 6:59:00 EDT, Order for future visit, Rate: 500 mL/hr, hour(s), Day 1, 08/04/22 7:00:00 EDT Zero Time Placeholder: Start: 08/04/22, 08/04/22 7:00:00 EDT diphenhydrAMINE: Start: 08/04/22 7:00:00 EDT, Dose = 50 mg, = 1 mL, IV Push (INF), Once, PRN, Other(see order comments), Routine, Stop: 08/05/22 6:59:00 EDT, Order for future visit, 0, Day 1, 08/04/22 7:00:00 EDT famotidine: Start: 08/04/22 7:00:00 EDT, Dose = 20 mg, = 2 mL, IV Push (INF), Once, PRN, Other (seeorder comments), Routine, Stop: 08/05/22 6:59:00 EDT, Order for future visit, 0, Day 1, 08/04/22 7:00:00 EDT hydrocortisone 100 mg preservative-free injection: Start: 08/04/22 7:00:00 EDT, Dose = 100 mg, IV Push (INF), Once, PRN, Other (see order comments), Routine, Stop: 08/05/22 6:59:00 EDT, Order for future visit, 0, Day 1, 08/04/22 7:00:00 EDT nivolumab (DoT): Start: 08/04/22, Dose = 480 mg, = 48 mL, IV Piggyback, Day of Tx, Routine, Order for future visit, Day 1, Rate: 296 mL/hr, Infuse over: 30 minute(s), 0, 08/04/22 7:00:00 EDT Prescriptions Prescribed oxyCODONE 5 mg oral tablet ( IMMEDIATE release ): Dose : 5 mg = 1 tab(s), Oral, q8h, PRN PRN as needed for pain, # 90 tab(s), 0 Refill(s), Pharmacy: [facility]/pharmacy #[id number], Renal cancer, 172.7, cm, 06/09/22 11:10:00 EDT, Height, 166.7, kg, 06/09/22 11:10:00 EDT, Dosing Weight Documented Medications Documented Miralax 255 gm bottle: gram(s) =, Oral, qDay, PRN Congestion, 0 Refill(s) senna 8.6 mg oral tablet: Dose : 17.2 mg = 2 tab(s), Oral, BID, PRN as needed for constipation, # 20 tab(s), 0 Refill(s), Medications (19) Active Scheduled: (8) lidocaine 1% (MPF) 2 mL vial pf 2.5 mg 0.25 mL, Intradermal, prep pharm lidocaine patch REMOVAL 1 EA, Miscellaneous, q24h lidocaine topical 4% patch 1 patch(es), Transdermal, q24h menthol (Biofreeze) gel packet 1 julia, Topical, qDay metoprolol tartrate 100 mg tablet 100 mg 1 tab(s), Oral, q8h miconazole topical 2% Powder 1 julia, Topical, BID Nicoderm patch REMOVAL 1 EA, Miscellaneous, q24h nicotine 14 mg/24 hr ER patch 14 mg 1 patch(es), Transdermal, q24h Continuous: (2) Dextrose 5% with 0.45% NACL 1,000 mL 1,000 mL, Intravenous, 20 mL/hr heparin 25,000 unit(s) [15.723 unit(s)/kg/hr] + Dextrose 5% Premix Diluent 250 mL 250 mL, Intravenous, 25 mL/hr PRN: (9) acetaminophen 325 mg Tablet 650 mg 2 tab(s), Oral, q4h heparin 5,000 units/mL (1 mL) vial 8,750 unit(s) 1.75 mL, IV Push, q6h heparin 5,000 units/mL (1 mL) vial 6,360 unit(s) 1.27 mL, IV Push, q6h melatonin 5 mg tablet 5 mg 1 tab(s), Oral, qHS ondansetron 2 mg/ 1 mL 2 mL INJ 4 mg 2 mL, IV Push, q4h oxycodone 5 mg tablet (immediate release) 5 mg 1 tab(s), Oral, q4h oxycodone 5 mg tablet (immediate release) 10 mg 2 tab(s), Oral, q4h polyethylene glycol 3350 - UD packet 17 gram(s) 15 mL, Oral, BID senna 8.6 mg Tablet 8.6 mg 1 tab(s), Oral, qDay Problem list: Medical Alcohol abuse / SNOMED CT 80655760 / Confirmed Cigarette smoker Active / SNOMED CT 936326105 / Confirmed T11 vertebral fracture / SNOMED CT 7563125486 / Confirmed Marijuana user Active / SNOMED CT 4027259823 / Confirmed Metastatic renal cell carcinoma. S/P Left cytoreductive nephrectomy 08/14/20. Final path - ccRCC withsarcomatoid features. / SNOMED CT 3176186567 / Confirmed Lung nodule, multiple Active / SNOMED CT 4078197279 / Confirmed No chronic diseases present / SNOMED CT [id number] / Confirmed Left renal mass. 9.6-cm. With perinephric fat invasion. With lytic bony lesion and pulmonary nodules concerning for mets. BS, 07/2020 - neg. CT brain, 07/2020 - neg. S/P Radical nephrectomy 08/14/20. / SNOMED CT 778147087 / Confirmed Secondary malignant neoplasm of bone (disorder) Active / SNOMED CT 473874966 / Confirmed Tobacco abuse / SNOMED CT 789478112 / Confirmed Viral gastroenteritis / SNOMED CT 016094844 / Confirmed, Active Problems (26) Alcohol abuse Anxiety Arthritis At risk for sleep apnea Back pain Bleeding hemorrhoid BMI 50.0-59.9, adult Constipation COPD - Chronic obstructive pulmonary disease PIERSON (dyspnea on exertion) Elevated hemoglobin A1c Glasses Left renal mass. 9.6-cm. With perinephric fat invasion. With lytic bony lesion and pulmonary nodules Metastatic renal cell carcinoma. S/P Left cytoreductive nephrectomy 08/14/20. Final path - ccRCC with No chronic diseases present Pain management Rash Severe pain Sleep apnea T11 vertebral fracture Tobacco abuse Viral gastroenteritis Cigarette smoker Active Lung nodule, multiple Active Marijuana user Active Secondary malignant neoplasm of bone (disorder) Active Histories Past Medical History: Active No chronic diseases present ([id number]) Resolved Renal cell carcinoma (disorder) Active ([id number]): Resolved. Family History: Kidney stone Mother Sister Rheumatoid arthritis Mother Hypertension Mother Father Heart attack Father Crohn's disease Sister HTN - Hypertension Mother Father Diabetes Father Procedure history: Tooth extraction ([id number]) on 08/28/2021 at 41 Years. Nephrectomy, including partial ureterectomy, any open approach including rib resection; radical, with regional lymphadenectomy and/or vena caval thrombectomy ([id number]) on 08/14/2020 at 40 Years. Tonsillectomy ([id number]). Chemotherapy ([id number]). Comments: 11/17/2020 9:50 HENOK Bucio 3 weeks ago Boost radiation therapy ([id number]). Comments: 11/17/2020 9:51 HENOK Bucio 11-17-20 Social History Social & Psychosocial Habits Alcohol 11/07/2016Risk Assessment: Medium Risk 03/07/2022 Use: Current Type: Beer Frequency: Daily Previous treatment: Outpatient Has alcohol use interfered with work or home life: No Do you ever drink more than intended: Yes Has anyone been hurt or at risk by your drinking: Yes Ready to change: Yes Comment: Quit JULY 16, 2020 - 08/14/2020 10:33 - HENOK Purdy Employment/School 12/16/2020 Status: Employed Substance Abuse 11/07/2016Risk Assessment: Denies Substance Abuse 08/14/2020 Use: Current Type: Marijuana Frequency: 1-2 times per month IV drug use: No Ready to change: No Concerns about substance abuse in household: No Tobacco 08/07/2020 Tobacco Use: 10 or more cigarettes (1/ Type: Cigarettes Started at age: 13 Years Ready to change: Yes Comment: Daily Tobacco/Smoke Exposure - 10/25/2018 09:49 - Mely Beth CMA Home/Environment 08/14/2020 Domestic Concerns None Living situation: Home with assistance 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 Physical Examination General: Alert and oriented. Airway: Normal temporomandibular joint mobility, Normal mouth, Normal throat, Normal neck range of motion, Trachea midline. Mallampati classification: II (soft palate, fauces, uvula visible). Head: Normocephalic. Dentition Evaluation: Intact, Own teeth, Denies loose/chipped teeth. Neck: Supple. Respiratory: Lungs are clear to auscultation, Respirations are non-labored. Cardiovascular: Normal rate, No murmur. Heart Sounds: Normal. Gastrointestinal: Soft. Musculoskeletal Normal range of motion. Integumentary: Intact, Warm, Dry. Neurologic: Alert, Oriented. Review / Management Results review: Lab results 08/08/2022 8:19 EDT Mechanical VTE Prophylaxis Education Not Done: Task Duplication (Not Done) Sequential Compression Device Form Not Done (Not Done) 08/08/2022 7:30 EDT Pain Scale Assessment 0-10 Pain scale Primary Pain Location Generalized Primary Pain Intensity 0 Reason for PRN medication Pain management PRN medication effectiveness Yes PRN Medication Effectiveness Evaluation PRN Medication Effectiveness Evaluation 08/08/2022 7:11 EDT Oxygen Therapy Nasal cannula 0L-6L Oxygen Activity Oxygen On Oxygen Flow Rate 2 08/08/2022 7:00 EDT Urine Voided 600 mL 08/08/2022 6:08 EDT Mechanical VTE Prophylaxis Education Not Done: Task Duplication (Not Done) Sequential Compression Device Form Not Done (Not Done) 08/08/2022 6:07 EDT Individuals Taught Patient Learning Readiness low motivation level Barriers to Learning None evident Teaching Method Explanation, Teach-back Teaching Evaluation Verbalizes/Nonverbally indicates understanding Identify Action of Anticoagulant Yes Identify Reason/Purpose of Anticoagulant Yes Reason/Purpose of Anticoagulant Rx or prevent blood clots Identify Generic and Trade Names of Med Not done this session 08/08/2022 5:42 EDT Primary Pain Intensity 7 Activity Status ADL Awake, Remains up in chair Standard Safety ID band on, Allergy Band on, Call device within reach, Bed in low position, Wheels locked, Safety level maintained High Risk Safety Room check performed Demonstrates Correct Call Light Use Yes COVID 19 Surge in Effect Yes oxyCODONE 10 mg mg 08/08/2022 4:20 EDT Violence Risk Confused No Violence Risk Irritable No Violence Risk Boisterous No Violence Risk Verbal Threats No Violence Risk Physical Threats No Violence Risk Attacking Objects No Violence Risk Predictor Score 0 Violence Risk Intervention None Violence Risk Current Interventions None Able To Drink Order Detail No Able To Sign Consents Order Detail Yes Code Status Order Detail Full code IV Order Detail No Dialysis Schedule Order Detail N/A Has Diabetes Order Detail No Isolation Precautions Order Detail None Nurse Collect Order Detail 0 Oxygen Order Detail No Order Detail N/A Prior Valve Replacement Order Detail No Transport Mode Order Detail MTT with Monitor Can Top Setter Details Form Can Top Setter Details Form 08/08/2022 4:19 EDT Mechanical VTE Prophylaxis Education Not Done: Task Duplication (Not Done) Sequential Compression Device Form Not Done (Not Done) 08/08/2022 4:17 EDT Implanted port Right 19g 08/01/2022 Central IV Activity: Assessed Central IV Number of Lumens: Single Central IV Patency Proximal Port: Continuous infusion Central IV Dressing Condition: Clean, Dry, Intact Central IV Dressing / Activity: Port CHG dressing with proper placement Central IV Line Care: Alcohol port cap(s) in place Central IV Site Condition: No complications Central IV Equipment: IV Pump, PRN Adaptor Wrist Right 08/02/2022 20 gauge Peripheral IV Activity: Assessed Peripheral IV Dressing Condition: Dry, Intact Peripheral IV Dressing Activity: Transparent dressing Peripheral IV Line Status/Patency: Flushes easily Peripheral IV Site Condition: No complications Peripheral IV Equipment: PRN Adaptor 08/08/2022 4:15 EDT Temperature Oral 36.8 DegC Heart Rate Monitored 127 bpm HI Respiratory Rate 20 br/min Systolic Blood Pressure Non-Invasive 129 mmHg Diastolic Blood Pressure Non-Invasive 81 mmHg Mean Arterial Pressure (NBP) 95 mmHg Primary Pain Location Lower back Primary Pain Intensity 3 Primary Pain Pharma Intervention Medication Pain Scale Type 0-10 Pain scale Heart Sounds ICU S1S2 Heart Rhythm Regular Alarms On and Functional Yes Heart Rate Alarm Set At - Low 50 Heart Rate Alarm Set At - High 120 Respirations Unlabored Respiratory Pattern Regular Breath Sounds Auscultated Anterior only All Lobes Breath Sounds Diminished, Equal Cough Persistent, Productive, Able to clear secretions Sputum Amount Small Sputum Color Blood-Tinged Sputum Consistency Thick Oxygen Therapy Humidification, Nasal cannula 0L-6L Oxygen Saturation 100 % Oxygen Flow Rate 2 Tracheal Position Midline Neurological Symptoms Patient denies Level of Consciousness Arousable with minimal stimulation Eye Opening Response Norton Spontaneously Best Motor Response Norton Obeys simple commands Best Verbal Response Dominga Oriented Norton Coma Score 15 GERMAN Yes Affect/Behavior Appropriate, Calm, Cooperative Orientation Oriented x 4 Activity Status ADL Remains up in chair Standard Safety ID band on, Allergy Band on, Call device within reach, Bed in low position, Wheels locked, Safety level maintained High Risk Safety Room check performed Demonstrates Correct Call Light Use Yes COVID 19 Surge in Effect Yes 08/08/2022 4:05 EDT Rise Time 2 second(s) Respiratory Rate Total 22 br/min Noninvasive Frequency, Mandatory 8 br/min Noninvasive FiO2 30 % Noninvasive Tidal Volume, Exhaled 0.468 L Noninvasive Minute Volume 7.7 L/min Non-Invasive Inspiratory Time (IT) 0.8 second(s) Mask/ETT Selection 1 Exhalation port selection Other: Non Invasive On and Functional Yes Non Invasive Vent Apnea 20 second(s) Non InvasiveVent Low Pressure/Disconnect 8 cmH20 Non InvasiveVent High Pressure 26 cmH20 Non InvasiveVent Low Rate 8 br/min Non InvasiveVent High Rate 40 br/min Non InvasiveVent Low Minute Volume 2 L/min BiPAP/CPAP Mode BiPAP BiPAP/CPAP Machine Model Conjectur V60 BiPAP/CPAP Machine ID [id number] Estimated Leak 4 L/min Mask/Delivery Type Full face mask Mask Size Large Patient Tolerance BiPAP/CPAP Well Nares Condition on BIPAP/CPAP No breakdown noted Inspiratory Pressure 15 cmH20 Expiratory Pressure 8 cmH20 08/08/2022 3:19 EDT Activity Status ADL Sleeping Standard Safety ID band on, Allergy Band on, Call device within reach, Bed in low position, Wheels locked, Upper/Half-Length side-rails up, Phone within reach, personal items within reach, Safety level maintained High Risk Safety Room check performed Demonstrates Correct Call Light Use Yes COVID 19 Surge in Effect Yes 08/08/2022 2:08 EDT Activity Status ADL Remains up in chair, Sleeps intermittently Standard Safety ID band on, Allergy Band on, Call device within reach, Bed in low position, Wheels locked, Upper/Half-Length side-rails up, Phone within reach, personal items within reach, Safety level maintained High Risk Safety Room check performed Demonstrates Correct Call Light Use Yes COVID 19 Surge in Effect Yes 08/08/2022 2:05 EDT heparin unit(s)/kg/hr unit(s) Dextrose 5% Premix Diluent Dextrose 5% Premix Diluent mL 08/08/2022 1:27 EDT Heparin dose (APTT) Unknown APTT 123.0 seconds CRIT 08/08/2022 0:19 EDT Apical Heart Rate 128 bpm >HHI lidocaine topical 1 patch(es) patch(es) metoprolol 100 mg mg 08/08/2022 0:17 EDT Activity Status ADL Remains up in chair, Sleeps intermittently Standard Safety ID band on, Allergy Band on, Call device within reach, Bed in low position, Wheels locked, Upper/Half-Length side-rails up, Phone within reach, personal items within reach, Safety level maintained High Risk Safety Room check performed Demonstrates Correct Call Light Use Yes COVID 19 Surge in Effect Yes 08/08/2022 0:15 EDT Heart Rate Monitored 129 bpm HI Respiratory Rate 21 br/min HI Systolic Blood Pressure Non-Invasive 133 mmHg Diastolic Blood Pressure Non-Invasive 88 mmHg Reason For Taking VItal Signs Routine Primary Pain Location Lower back Primary Pain Intensity 6 Primary Pain Pharma Intervention Medication Pain Scale Type 0-10 Pain scale Cardiac Rhythm Sinus tachycardia Monitoring Lead II, V5/MCL5 [place] Interval 0.12 second(s) QRS Duration 0.09 second(s) QT Interval 0.30 second(s) QTc Interval 0.44 second(s) Respirations Unlabored Respiratory Pattern Regular Breath Sounds Auscultated Anterior and posterior All Lobes Breath Sounds Clear, Diminished Oxygen Therapy BiPAP Oxygen Saturation 100 % Facial Movement Symmetric resting/crying Neurological Language Able to speak clearly Neurological Symptoms Patient denies Characteristics of Communication Appropriate Characteristics of Speech Clear Facial Symmetry Symmetric Level of Consciousness Arousable with minimal stimulation CN V Facial Sensation Corneal reflex present CN VII Facial Expression and Symmetry Facial movement symmetrical CN IX, X Swallowing, Gag Reflex Swallowing present Affect/Behavior Appropriate, Calm, Cooperative Orientation Oriented x 4 08/07/2022 23:51 EDT Cardiac Rhythm Sinus tachycardia Monitoring Lead II, V1/MCL1 NJ Interval 0.10 second(s) QRS Duration 0.09 second(s) QT Interval 0.28 second(s) QTc Interval 41 second(s) Alarms On and Functional Yes Heart Rate Alarm Set At - Low 50 Heart Rate Alarm Set At - High 120 08/07/2022 23:17 EDT Urine Voided 1,000 mL 08/07/2022 23:05 EDT Rise Time 2 second(s) Respiratory Rate Total 30 br/min HI Noninvasive Frequency, Mandatory 8 br/min Noninvasive FiO2 30 % Noninvasive Tidal Volume, Exhaled 0.555 L Noninvasive Minute Volume 17.4 L/min Non-Invasive Inspiratory Time (IT) 0.8 second(s) Mask/ETT Selection 1 Exhalation port selection Other: Non Invasive On and Functional Yes Non Invasive Vent Apnea 20 second(s) Non InvasiveVent Low Pressure/Disconnect 8 cmH20 Non InvasiveVent High Pressure 26 cmH20 Non InvasiveVent Low Rate 8 br/min Non InvasiveVent High Rate 40 br/min Non InvasiveVent Low Minute Volume 2 L/min BiPAP/CPAP Mode BiPAP BiPAP/CPAP Machine Model Kristen V60 BiPAP/CPAP Machine ID [id number] Estimated Leak 0 L/min Mask/Delivery Type Full face mask Mask Size Large Patient Tolerance BiPAP/CPAP Fair Nares Condition on BIPAP/CPAP No breakdown noted Inspiratory Pressure 15 cmH20 Expiratory Pressure 8 cmH20 08/07/2022 23:03 EDT BIPAP/CPAP Daily Charge BIPAP on 08/07/2022 21:59 EDT heparin 21,000 unit(s) unit(s) Dextrose 5% Premix Diluent 210 mL mL Dextrose 5% with 0.45% NaCl 112 mL mL 08/07/2022 21:37 EDT Ed-Activity Expectations Verbalizes/Nonverbally indicates understanding Ed-Medication Side Effects Verbalizes/Nonverbally indicates understanding Ed-Diet/Nutrition Verbalizes/Nonverbally indicates understanding Ed-Breathing Techniques Needs further teaching Si-Rooqar-Pu Care/Appointment Needs further teaching Edu-Med Generic/Brand Name,Purpose,Action Needs further teaching Ed-Disease Process Needs further teaching Ed-Patient/Caregiver about Hand Hygiene Needs further teaching 08/07/2022 21:35 EDT Individuals Taught Patient Learning Readiness low motivation level Barriers to Learning None evident Teaching Method Explanation Teaching Evaluation Needs reinforcement Mechanical VTE Prophylaxis Education Not Done: See ICU flow (Not Done) Mechanical VTE Prophylaxis Education Not Done: See ICU flow (Not Done) Identify Action of Anticoagulant Yes Identify Reason/Purpose of Anticoagulant Yes Reason/Purpose of Anticoagulant Rx of pulmonary embolism Identify Side Effects of Anticoagulant Not done this session Identify Activities Causing Cuts/Bruises Not done this session Id. Problems Requiring Phy. Notification Not done this session Id. Importance of Follow-Up Lab Work Yes Identify Generic and Trade Names of Med Not done this session Sequential Compression Device Form Not Done (Not Done) Sequential Compression Device Form Not Done (Not Done) 08/07/2022 21:34 EDT Activity Status ADL Remains up in chair Standard Safety Safety level maintained Able To Drink Order Detail Yes Able To Sign Consents Order Detail Yes Code Status Order Detail Full code IV Order Detail Yes Dialysis Schedule Order Detail N/A Has Diabetes Order Detail No Isolation Precautions Order Detail None Nurse Collect Order Detail 0 Oxygen Order Detail Yes Order Detail N/A Prior Valve Replacement Order Detail No Transport Mode Order Detail MTT with Monitor Can Top Setter Details Form Can Top Setter Details Form 08/07/2022 21:27 EDT BiPAP/CPAP Machine Model Kristen V60 Patient Tolerance BiPAP/CPAP on stand-by 08/07/2022 21:00 EDT miconazole topical Not Done: Patient Refused (Not Done) Oral Intake 480 mL 08/07/2022 20:46 EDT heparin 19 unit(s)/kg/hr unit(s) Dextrose 5% Premix Diluent Dextrose 5% Premix Diluent mL 08/07/2022 19:50 EDT heparin unit(s)/kg/hr unit(s) Dextrose 5% Premix Diluent Dextrose 5% Premix Diluent mL 08/07/2022 19:22 EDT Implanted port Right 19g 08/01/2022 Central IV Activity: Assessed Central IV Site Condition: No complications Wrist Right 08/02/2022 20 gauge Peripheral IV Activity: Assessed Peripheral IV Site Condition: No complications 08/07/2022 19:16 EDT Temperature Oral 37 DegC Heart Rate Monitored 128 bpm HI Respiratory Rate 25 br/min HI Systolic Blood Pressure Non-Invasive 131 mmHg Diastolic Blood Pressure Non-Invasive 86 mmHg Mean Arterial Pressure (NBP) 100 mmHg Reason For Taking VItal Signs Routine Primary Pain Intensity 0 Primary Pain Nonverbal Response Nods No Pain Scale Type 0-10 Pain scale Monitor Alarms On and Limits Checked Heart Sounds ICU S1S2 Heart Rhythm Regular Cardiac Rhythm Sinus tachycardia Alarms On and Functional Yes Heart Rate Alarm Set At - Low 50 Heart Rate Alarm Set At - High 140 Respiratory Pattern Regular Breath Sounds Auscultated Anterior only All Lobes Breath Sounds Clear, Diminished Cough Productive, Strong Sputum Amount Small Sputum Color Blood-Tinged Sputum Consistency Thick Oxygen Therapy Humidification, Nasal cannula 0L-6L Oxygen Saturation 94 % Oxygen Flow Rate 2 Continuous IV Infusions [id number]@20 Neurological Symptoms Patient denies Extremity Movement Equal Facial Symmetry Symmetric Level of Consciousness Arousable with minimal stimulation GERMAN Yes Strength All Extremities Moderate Activity Status ADL Remains up in chair Standard Safety ID band on, Call device within reach High Risk Safety Room check performed Demonstrates Correct Call Light Use Yes heparin 22 unit(s)/kg/hr unit(s) Dextrose 5% Premix Diluent Dextrose 5% Premix Diluent mL 08/07/2022 19:14 EDT Heparin dose (APTT) Heparin IV APTT 143.6 seconds CRIT Protime 15.1 seconds HI PT International Ratio 1.3 ratio NA 08/07/2022 17:27 EDT heparin Begin Bag 2.5 mL unit(s) Dextrose 5% Premix Diluent Begin Bag 250 mL mL 08/07/2022 17:11 EDT Activity Status ADL Remains up in chair Standard Safety Safety level maintained 08/07/2022 17:10 EDT Current Weight 165.2 kg Type of Scale Used Standing 08/07/2022 17:00 EDT Violence Risk Confused No Violence Risk Irritable No Violence Risk Boisterous No Violence Risk Verbal Threats No Violence Risk Physical Threats No Violence Risk Attacking Objects No Violence Risk Predictor Score 0 Violence Risk Intervention None Violence Risk Current Interventions None Urine Voided 275 mL 08/07/2022 16:55 EDT Mechanical VTE Prophylaxis Education Not Done: See ICU flow (Not Done) Mechanical VTE Prophylaxis Education Not Done: See ICU flow (Not Done) Able To Drink Order Detail Not Done: See ICU flow (Not Done) Able To Sign Consents Order Detail Not Done: See ICU flow (Not Done) Code Status Order Detail Not Done: See ICU flow (Not Done) IV Order Detail Not Done: See ICU flow (Not Done) Dialysis Schedule Order Detail Not Done: See ICU flow (Not Done) Has Diabetes Order Detail Not Done: See ICU flow (Not Done) Isolation Precautions Order Detail Not Done: See ICU flow (Not Done) Nurse Collect Order Detail Not Done: See ICU flow (Not Done) Oxygen Order Detail Not Done: See ICU flow (Not Done) Order Detail Not Done: See ICU flow (Not Done) Prior Valve Replacement Order Detail Not Done: See ICU flow (Not Done) Transport Mode Order Detail Not Done: See ICU flow (Not Done) Can Top Setter Details Form Not Done (Not Done) Sequential Compression Device Form Not Done (Not Done) Sequential Compression Device Form Not Done (Not Done) 08/07/2022 15:45 EDT Apical Heart Rate 130 bpm >HHI metoprolol 100 mg mg Dextrose 5% with 0.45% NaCl Begin Bag 1,000 mL mL 08/07/2022 15:43 EDT Temperature Oral 36.9 DegC Heart Rate Monitored 130 bpm HI Respiratory Rate 28 br/min HI Systolic Blood Pressure Non-Invasive 128 mmHg Diastolic Blood Pressure Non-Invasive 91 mmHg HI Mean Arterial Pressure (NBP) 101 mmHg Reason For Taking VItal Signs Routine Primary Pain Intensity 0 Primary Pain Nonverbal Response Nods No Pain Scale Type 0-10 Pain scale Monitor Alarms On and Limits Checked Nail Bed Color [place] Capillary Refill < 2 seconds Heart Sounds ICU S1S2 Heart Rhythm Regular Dorsalis Pedis Pulse, Left 1+ Thready Dorsalis Pedis Pulse, Right 1+ Thready Posttibial Pulse, Left 1+ Thready Posttibial Pulse, Right 1+ Thready Radial Pulse, Left 2+ Normal Radial Pulse, Right 2+ Normal Leg edema Edema Ratin+ mild/4mm Cardiac Rhythm Sinus tachycardia Monitoring Lead II, V1/MCL1 NJ Interval 0.13 second(s) QRS Duration 0.07 second(s) QT Interval 0.26 second(s) QTc Interval 0.38 second(s) Alarms On and Functional Yes Heart Rate Alarm Set At - Low 50 Heart Rate Alarm Set At - High 140 NSBP Alarm Low 90 NSBP Alarm High 160 HI Respirations Unlabored Respiratory Pattern Regular Breath Sounds Auscultated Anterior only All Lobes Breath Sounds Clear, Diminished Cough and Deep Breathe Done Cough Occasional, Productive Sputum Amount Small Sputum Color Blood-Tinged Sputum Consistency Thick Oxygen Therapy Humidification, Nasal cannula 0L-6L Oxygen Saturation 99 % Oxygen Flow Rate 2 Abdomen Description Symmetric, Soft Abdomen Palpation Soft Bowel Sounds All Quadrants Present Urinary Elimination Voiding, no difficulties Facial Movement Makes facial grimaces Skin Symptoms Bruising All Extremity Description [place] Skin Temperature Warm Temperature All Extremities Warm Skin Description Normal for ethnicity Skin Integrity Not intact Skin Turgor Non-Elastic Mucous Membrane Color [place] Mucous Membrane Description Moist Groin Right Skin Abnormality Type: Procedure site Wound Status: No complications Groin Bilateral Skin Abnormality Type: Excoriation Wound Status: No complications Continuous IV Infusions d51/[id number]@20 Implanted port Right 19g 08/01/2022 Central IV Activity: Assessed Central IV Number of Lumens: Single Central IV Patency Proximal Port: Continuous infusion Central IV Dressing Condition: Dry, Intact Central IV Dressing / Activity: Port CHG dressing with proper placement Central IV Line Care: Alcohol port cap(s) in place, Date/time/initials present, Needleless Protector End Cap(s) in place Central IV Equipment: IV Pump Wrist Right 08/02/2022 20 gauge Peripheral IV Activity: Assessed Peripheral IV Dressing Condition: Dry, Intact Peripheral IV Dressing Activity: Transparent dressing Peripheral IV Line Status/Patency: Flushes easily Peripheral IV Line Care: Alcohol port cap(s) in place Peripheral IV Site Condition: No complications Peripheral IV Equipment: PRN Adaptor Neurological Language Follows simple commands Neurological Symptoms Patient denies Gait Unable to assess Extremity Movement Equal Swallowing Difficulty None Characteristics of Communication Appropriate Characteristics of Speech Clear Facial Symmetry Symmetric Level of Consciousness Alert Aspiration Risk None Eye Opening Response Dom[place] Spontaneously Best Motor Response Norton Obeys simple commands Best Verbal Response Norton Oriented Norton Coma Score 15 GERMAN Yes Left Pupil Description Regular Right Pupil Description Regular Left Pupil Reaction Brisk Right Pupil Reaction Brisk Pupil Size, Left 3 mm Pupil Size, Right 3 mm Strength All Extremities Moderate Left Upper Extremity Sensation Intact Right Upper Extremity Sensation Intact Left Lower Extremity Sensation Intact Right Lower Extremity Sensation Intact CN V Facial Sensation Corneal reflex present CN VII Facial Expression and Symmetry Facial movement symmetrical CN IX, X Swallowing, Gag Reflex Swallowing present Affect/Behavior Calm, Cooperative Orientation Oriented x 4, Follows simple commands Activity Status ADL Remains up in chair Standard Safety ID band on, Call device within reach High Risk Safety Room check performed Demonstrates Correct Call Light Use Yes heparin 22 unit(s)/kg/hr unit(s) Dextrose 5% Premix Diluent Dextrose 5% Premix Diluent mL 08/07/2022 15:35 EDT Hospitalist Progress Note Progress Note 08/07/2022 15:00 EDT Urine Voided 1,025 mL 08/07/2022 14:00 EDT Standard Safety Safety level maintained High Risk Safety Room check performed 08/07/2022 13:13 EDT Electrocardiogram - EKG - CV Signed 08/07/2022 13:02 EDT Notify date/time 08/07/2022 13:02 Provider Notified MIKE RIVERA MD Notification Method Phone Information Communicated Nurse communication Details Communicated Dr. Wick recommends bridging to eliquis as soon as possible 10mg BID for 7 days then switch to 5 mg BID; with hemoptisis and high aptt with heparin drip eliquis would be a better choice Notification Outcome Orders received Person Reporting Result(s) Cindy Miranda RN Details of Results Received wait until after BONNIE tomorrow then will bridge to eliquis Results Read Back Yes 08/07/2022 12:54 EDT Notify date/time 08/07/2022 12:54 Provider Notified [email or web address] (For Consultation Assignment Only NO other Orders) Notification Method Pager Person Reporting Result(s) Cindy Miranda RN 08/07/2022 12:49 EDT Pulmonology Progress Note Progress Note 08/07/2022 12:49 EDT Cardiac EP Progress Note Progress Note 08/07/2022 12:45 EDT Heparin dose (APTT) Heparin IV APTT 64.7 seconds HI 08/07/2022 11:44 EDT Temperature Oral 37 DegC Heart Rate Monitored 128 bpm HI Respiratory Rate 28 br/min HI Systolic Blood Pressure Non-Invasive 136 mmHg Diastolic Blood Pressure Non-Invasive 87 mmHg Mean Arterial Pressure (NBP) 100 mmHg Reason For Taking VItal Signs Routine Primary Pain Location Chest Primary Pain Laterality Right Primary Pain Intensity 2 Pain Scale Type 0-10 Pain scale Monitor Alarms On and Limits Checked Heart Rhythm Regular Cardiac Rhythm Sinus tachycardia Monitoring Lead II, V5/MCL5 Alarms On and Functional Yes Oxygen Therapy Nasal cannula 0L-6L Oxygen Saturation 96 % Oxygen Flow Rate 2 Tolerating Oral Intake Yes Activity Status ADL Remains up in chair Standard Safety Safety level maintained High Risk Safety Room check performed heparin 22 unit(s)/kg/hr unit(s) Dextrose 5% Premix Diluent Dextrose 5% Premix Diluent mL 08/07/2022 9:33 EDT menthol topical 1 julia julia nicotine 14 mg mg 08/07/2022 9:20 EDT heparin Begin Bag 2.5 mL unit(s) Dextrose 5% Premix Diluent Begin Bag 250 mL mL 08/07/2022 9:00 EDT Nicoderm Patch REMOVAL 1 EA EA 08/07/2022 8:56 EDT Oxygen Therapy Nasal cannula 0L-6L Oxygen Activity Oxygen On Oxygen Flow Rate 2 Stool Count 1 EA 08/07/2022 7:55 EDT miconazole topical 1 julia julia 08/07/2022 7:44 EDT Apical Heart Rate 128 bpm >HHI metoprolol 100 mg mg 08/07/2022 7:38 EDT Temperature Oral 36.9 DegC Heart Rate Monitored 127 bpm HI Respiratory Rate 26 br/min HI Systolic Blood Pressure Non-Invasive 116 mmHg Diastolic Blood Pressure Non-Invasive 85 mmHg Mean Arterial Pressure (NBP) 95 mmHg Reason For Taking VItal Signs Routine Primary Pain Location Chest Primary Pain Laterality Right Primary Pain Intensity 6 Primary Pain Aggravating Factors Breathing Pain Scale Type 0-10 Pain scale Monitor Alarms On and Limits Checked Nail Bed Color [place] Capillary Refill < 2 seconds Heart Sounds ICU S1S2 Heart Rhythm Regular Dorsalis Pedis Pulse, Left 2+ Normal Dorsalis Pedis Pulse, Right 2+ Normal Posttibial Pulse, Left 1+ Thready Posttibial Pulse, Right 1+ Thready Radial Pulse, Left 2+ Normal Radial Pulse, Right 2+ Normal Cardiac Rhythm Sinus tachycardia Monitoring Lead II, V5/MCL5 [place] Interval 0.13 second(s) QRS Duration 0.1 second(s) QT Interval 0.27 second(s) QTc Interval 0.39 second(s) Alarms On and Functional Yes Heart Rate Alarm Set At - Low 50 Heart Rate Alarm Set At - High 140 NSBP Alarm Low 90 NSBP Alarm High 160 HI Respirations Unlabored Respiratory Pattern Regular Breath Sounds Auscultated Anterior only All Lobes Breath Sounds Clear, Diminished Oxygen Therapy Nasal cannula 0L-6L Oxygen Saturation 94 % Oxygen Flow Rate 2 Tracheal Position Midline Abdomen Description Symmetric, Rounded Abdomen Palpation Soft Bowel Sounds All Quadrants Present Tolerating Oral Intake Yes Urinary Elimination Voiding, no difficulties Facial Movement Makes facial grimaces Skin Symptoms Bruising All Extremity Description Normal for ethnicity Skin Temperature Warm Temperature All Extremities Warm Skin Description Normal for ethnicity Skin Integrity Not intact Skin Turgor Non-Elastic Mucous Membrane Color [place] Mucous Membrane Description Moist Sensory Perception Haroon Slightly limited Moisture Haroon Occasionally moist Activity Haroon Walks occasionally Mobility Haroon Slightly limited Nutrition Haroon Adequate Friction and Shear Haroon Potential problem Haroon Score 17 Hospital Acquired Pressure Injury Risk Low risk (score 15-18) Groin Right Skin Abnormality Type: Procedure site Incision, Wound Dressing/Activity: Open to air Wound Status: No complications Groin Bilateral Skin Abnormality Type: Excoriation Wound Status: No complications Incision, Wound Topical Agent: Powders Continuous IV Infusions prn adapted Implanted port Right 19g 08/01/2022 Central IV Activity: Assessed Central IV Number of Lumens: Single Central IV Patency Proximal Port: Flushes easily, Good blood return Central IV Dressing Condition: Clean, Dry, Intact Central IV Dressing / Activity: Port CHG dressing with proper placement Central IV Line Care: Alcohol port cap(s) in place Central IV Site Condition: No complications Central IV Equipment: IV Pump Wrist Right 08/02/2022 20 gauge Peripheral IV Activity: Assessed Peripheral IV Dressing Condition: Clean, Dry, Intact Peripheral IV Dressing Activity: Transparent dressing Peripheral IV Line Status/Patency: Flushes easily, Good blood return Peripheral IV Line Care: Alcohol port cap(s) in place, Secured with tape Peripheral IV Site Condition: No complications Peripheral IV Equipment: PRN Adaptor Neurological Language Able to speak clearly, Follows simple commands Extremity Movement Equal Swallowing Difficulty None Characteristics of Communication Appropriate Characteristics of Speech Clear Facial Symmetry Symmetric Level of Consciousness Arousable with minimal stimulation Aspiration Risk None Eye Opening Response Norton To voice Best Motor Response Norton Obeys simple commands Best Verbal Response Dominga Oriented Norton Coma Score 14 GERMAN Yes Left Pupil Description Regular Right Pupil Description Regular Left Pupil Reaction Sluggish Right Pupil Reaction Sluggish Pupil Size, Left 3 mm Pupil Size, Right 3 mm Strength All Extremities Moderate Left Upper Extremity Sensation Intact Right Upper Extremity Sensation Intact Left Lower Extremity Sensation Intact Right Lower Extremity Sensation Intact CN V Facial Sensation Corneal reflex present, Light touch equal bilaterally CN VII Facial Expression and Symmetry Facial movement symmetrical, Wrinkles forehead CN IX, X Swallowing, Gag Reflex Swallowing present, Gag reflex present Campa Screen Daily History of Fall in Last 3 Months Campa No Presence of Secondary Diagnosis Campa Yes Use of Ambulatory Aid [place] None, bedrest, wheelchair, nurse IV/PRN Adapter Fall Risk [place] Yes Gait Weak or Impaired Fall Risk [place] Normal, bedrest, immobile Mental Status Fall Risk [place] Oriented to own ability Campa Fall Risk Score 35 Violence Risk Confused No Violence Risk Irritable Yes (Modified) Violence Risk Boisterous No Violence Risk Verbal Threats No Violence Risk Physical Threats No Violence Risk Attacking Objects No Violence Risk Predictor Score 1 (Modified) Violence Risk Intervention None Violence Risk Current Interventions None Affect/Behavior Agitated Orientation Oriented x 4, Follows simple commands Orientation Assessment Oriented to person, Oriented to place, Oriented to time, Oriented to situation Activity Status ADL Remains up in chair Skin Care Preventative Intervention(s) heel(s)s elevated, turn and position system Standard Safety ID band on, Allergy Band on, Call device within reach, Bed in low position, Wheels locked, Upper/Half-Length side-rails up High Risk Safety Room check performed 08/07/2022 7:20 EDT Bed Bath Refused (Modified) 08/07/2022 7:00 EDT Urine Voided 725 mL 08/07/2022 6:59 EDT heparin unit(s)/kg/hr unit(s) Dextrose 5% Premix Diluent Dextrose 5% Premix Diluent mL 08/07/2022 6:18 EDT Heparin dose (APTT) Heparin IV APTT 172.2 seconds CRIT 08/07/2022 6:08 EDT Mechanical VTE Prophylaxis Education Not Done: Task Duplication (Not Done) Sequential Compression Device Form Not Done (Not Done) 08/07/2022 5:12 EDT WBC 13.9 10^3/mcL HI RBC 3.97 10^6/mcL LOW Hgb 12.8 G/dL LOW Hct 39.0 % LOW MCV 98.3 fL MCH 32.2 pg MCHC 32.8 G/dL RDW 14.7 % Platelet 201 10^3/mcL MPV 8.2 fL Neutrophil % 77.8 % HI Lymphocyte % 9.6 % LOW Monocyte % 10.3 % Eosinophil % 1.7 % Basophil % 0.6 % Neutrophil, Absolute 10.8 10^3/mcL HI Lymphocyte, Absolute 1.3 10^3/mcL Monocyte, Absolute 1.4 10^3/mcL Eosinophil, Absolute 0.2 10^3/mcL Basophil, Absolute 0.1 10^3/mcL Glucose Level 128 mg/dL HI Sodium Level 133 mEq/L LOW Potassium Level 5.0 mEq/L Chloride 99 mEq/L CO2 34 mEq/L HI Electrolyte Balance 0.0 mEq/L LOW BUN 28.0 mg/dL HI Creatinine Lvl (s) 1.25 mg/dL BUN/Creatinine Ratio 22.4 ratio HI Calcium Lvl 8.7 mg/dL GFR Non- >60 ml/min/1.73sqm NA GFR >60 ml/min/1.73sqm NA Creatinine Clearance Calc 73.02 mL/min 08/07/2022 4:04 EDT Heart Rate Monitored 126 bpm HI Respiratory Rate 20 br/min Systolic Blood Pressure Non-Invasive 115 mmHg Diastolic Blood Pressure Non-Invasive 98 mmHg HI Mean Arterial Pressure (NBP) 105 mmHg Reason For Taking VItal Signs Routine Primary Pain Intensity 0 Primary Pain Nonverbal Response Appears restful Pain Scale Type 0-10 Pain scale Monitor Alarms On and Limits Checked Nail Bed Color [place] Capillary Refill < 2 seconds Heart Sounds ICU S1S2 Heart Rhythm Regular Cardiac Rhythm Sinus tachycardia Monitoring Lead II, V1/MCL1 Alarms On and Functional Yes Heart Rate Alarm Set At - Low 50 Heart Rate Alarm Set At - High 140 Respirations Unlabored Respiratory Pattern Regular Cough Occasional Oxygen Therapy CPAP Oxygen Saturation 97 % Abdomen Description Rounded Abdomen Palpation Non-Tender Urinary Elimination Voiding, no difficulties All Extremity Description Normal for ethnicity Skin Temperature Warm Skin Description Normal for ethnicity Skin Integrity Not intact Mucous Membrane Color [place] Mucous Membrane Description Moist Groin Right Skin Abnormality Type: Procedure site Wound Status: No complications Implanted port Right 19g 08/01/2022 Central IV Activity: Assessed Central IV Site Condition: No complications Central IV Equipment: IV Pump, PRN Adaptor Wrist Right 08/02/2022 20 gauge Peripheral IV Activity: Assessed Peripheral IV Site Condition: No complications Peripheral IV Equipment: PRN Adaptor Neurological Language Able to speak clearly Neurological Symptoms Patient denies Gait Steady Extremity Movement Equal Swallowing Difficulty None Characteristics of Communication Appropriate Characteristics of Speech Clear Facial Symmetry Symmetric Level of Consciousness Alert Aspiration Risk None Strength All Extremities Moderate Violence Risk Confused No Violence Risk Irritable No Violence Risk Boisterous No Violence Risk Verbal Threats No Violence Risk Physical Threats No Violence Risk Attacking Objects No Violence Risk Predictor Score 0 Violence Risk Intervention None Violence Risk Current Interventions None Orientation Oriented x 4 Activity Status ADL Remains up in chair, Repositions self Standard Safety ID band on, Safety level maintained High Risk Safety Room check performed Demonstrates Correct Call Light Use Yes COVID 19 Surge in Effect Yes 08/07/2022 4:01 EDT Patient Tolerance BiPAP/CPAP on stand-by 08/07/2022 1:55 EDT Mechanical VTE Prophylaxis Education Not Done: See ICU flow (Not Done) Sequential Compression Device Form Not Done (Not Done) 08/07/2022 1:51 EDT Able To Drink Order Detail Yes Able To Sign Consents Order Detail Yes Code Status Order Detail Full code IV Order Detail Yes Dialysis Schedule Order Detail N/A Has Diabetes Order Detail No Isolation Precautions Order Detail None Nurse Collect Order Detail 0 Oxygen Order Detail Yes Order Detail N/A Prior Valve Replacement Order Detail No Transport Mode Order Detail MTT with Monitor Can Top Setter Details Form Can Top Setter Details Form 08/07/2022 1:29 EDT heparin Begin Bag 2.5 mL unit(s) Dextrose 5% Premix Diluent Begin Bag 250 mL mL 08/07/2022 0:17 EDT Rise Time 2 second(s) Respiratory Rate Total 18 br/min Noninvasive Frequency, Mandatory 8 br/min Noninvasive FiO2 30 % Noninvasive Tidal Volume, Exhaled 0.521 L Noninvasive Minute Volume 9.7 L/min Non-Invasive Inspiratory Time (IT) 0.8 second(s) Mask/ETT Selection 1 Exhalation port selection Other: Non Invasive On and Functional Yes Non Invasive Vent Apnea 20 second(s) Non InvasiveVent Low Pressure/Disconnect 8 cmH20 Non InvasiveVent High Pressure 26 cmH20 Non InvasiveVent Low Rate 8 br/min Non InvasiveVent High Rate 40 br/min Non InvasiveVent Low Minute Volume 2 L/min BiPAP/CPAP Mode BiPAP BiPAP/CPAP Machine Model Kristen V60 BiPAP/CPAP Machine ID [id number] Estimated Leak 11 L/min Mask/Delivery Type Full face mask Mask Size Large Patient Tolerance BiPAP/CPAP Fair Nares Condition on BIPAP/CPAP No breakdown noted Protective Dressing in Place Yes Inspiratory Pressure 14 cmH20 Expiratory Pressure 5 cmH20 . Assessment and Plan [place] [employer] (ASA) physical status classification: Class II. Anesthetic Preoperative Plan Premedication: intravenous. Anesthetic technique: General. Induction: intravenously. Maintenance airway: Mask. Special techniques: Warming device. Special Monitoring. Postoperative pain management: Per surgeon. Risks discussed: nausea, vomiting, headache, sore throat, dental injury, hypotension, allergic reaction, serious complications. Informed consent: signed by patient. Beta Nitesh: Beta Nitesh Taken Within 24 Hrs: Yes. Digitally Signed by NORMA DAUGHERTY DO on 08/08/2022 08:57 AM [facility] Evaluation + Plan note Future Appointments Appointment Date:12/16/2020 09:45:00 AM Scheduled Provider: Location:INF Appointment Type:INF Chemo Appointment Date:12/17/2020 01:10:00 PM Scheduled Provider:FLO DE LEON MD Location:[facility] Appointment Type:URO OV Appointment Date:12/31/2020 10:00:00 AM Scheduled Provider: Location:XRAY Appointment Type:MRI Spine Thoracic w/ + w/o Contrast Future Scheduled Tests Laboratory* Creatinine 12/17/20 Radiology* CT Abdomen w/ Contrast 10/16/20 * CT Thorax w/ Contrast 10/16/20 * MRI Thorax w/ Contrast 09/28/20 * MRI Spine Thoracic w/ + w/o Contrast 12/31/20 [facility] evaluation + Plan note Future Appointments Appointment Date:12/23/2020 11:10:00 AM Scheduled Provider:FLO DE LEON MD Location:[facility] Appointment Type:URO OV Appointment Date:12/30/2020 01:30:00 PM Scheduled Provider: Location:RAD Appointment Type:yyCT Abdomen and Pelvis w/ Contrast 3 Appointment Date:12/30/2020 02:00:00 PM Scheduled Provider: Location:RAD Appointment Type:yyCT Chest w/ Contrast 3 Appointment Date:12/31/2020 10:00:00 AM Scheduled Provider: Location:XRAY Appointment Type:MRI Spine Thoracic w/ + w/o Contrast Appointment Date:01/06/2021 10:00:00 AM Scheduled Provider:LINA FUNG MD Location:[facility] Appointment Type:PALL OV Follow Up Appointment Date:01/06/2021 10:00:00 AM Scheduled Provider:BHAVIK TRIANA MD Location:[facility] Appointment Type:HEM ONC OV Follow Up w/Active Treatment Appointment Date:01/06/2021 10:30:00 AM Scheduled Provider: Location:INF Appointment Type:INF Chemo Future Scheduled Tests Laboratory* Creatinine 12/17/20 * Lactate Dehydrogenase 01/06/21 * Complete Blood Count 01/06/21 * Complete Metabolic Panel 01/06/21 Radiology* CT Abdomen w/ Contrast 10/16/20 * CT Thorax w/ Contrast 10/16/20 * CT Thorax w/ Contrast 12/30/20 * MRI Thorax w/ Contrast 09/28/20 * CT Abdomen and Pelvis w/ contrast 12/30/20 [facility] Evaluation + Plan note Future Appointments Appointment Date:12/31/2020 10:00:00 AM Scheduled Provider: Location:[facility] Appointment Type:MRI Spine Thoracic w/ + w/o Contrast Appointment Date:01/06/2021 10:00:00 AM Scheduled Provider:LIAN FUNG MD Location:[facility] Appointment Type:PALL OV Follow Up Appointment Date:01/06/2021 10:00:00 AM Scheduled Provider:BHAVIK TRIANA MD Location:[facility] Appointment Type:HEM ONC OV Follow Up w/Active Treatment Appointment Date:01/06/2021 10:30:00 AM Scheduled Provider: Location:INF Appointment Type:INF Chemo Appointment Date:01/15/2021 08:50:00 AM Scheduled Provider:PROSPER MANJARREZ DO Location:[facility] Appointment Type:PC OV Follow Up Future Scheduled Tests Laboratory* Creatinine 12/17/20 * Lactate Dehydrogenase 01/06/21 * Complete Blood Count 01/06/21 * Complete Metabolic Panel 01/06/21 Radiology* CT Abdomen w/ Contrast 10/16/20 * CT Thorax w/ Contrast 10/16/20 * MRI Thorax w/ Contrast 09/28/20 * MRI Spine Thoracic w/ + w/o Contrast 12/31/20 [facility] Evaluation + Plan note Future Appointments Appointment Date:01/15/2021 08:50:00 AM Scheduled Provider:PROSPER MANJARREZ DO Location:[facility] Appointment Type:PC OV Follow Up Appointment Date:01/27/2021 10:00:00 AM Scheduled Provider:BHAVIK TRIANA MD Location:[facility] Appointment Type:HEM ONC OV Follow Up w/Active Treatment Appointment Date:01/27/2021 10:30:00 AM Scheduled Provider: Location:INF Appointment Type:INF Chemo Appointment Date:02/04/2021 11:15:00 AM Scheduled Provider:PAMELA MEI MD Location:[facility] Appointment Type:NS NIGHT SHIFT Appointment Date:03/10/2021 11:00:00 AM Scheduled Provider:LIAN FUNG MD Location:[facility] Appointment Type:PALL OV Follow Up Future Scheduled Tests Laboratory* Creatinine 12/17/20 * Lactate Dehydrogenase 01/27/21 * Complete Blood Count 01/27/21 * Complete Metabolic Panel 01/27/21 Radiology* CT Abdomen w/ Contrast 10/16/20 * CT Thorax w/ Contrast 10/16/20 * MRI Thorax w/ Contrast 09/28/20 * MRI Spine Thoracic w/ + w/o Contrast 12/31/20 [facility] Evaluation + Plan note Future Appointments Appointment Date:02/04/2021 11:15:00 AM Scheduled Provider:PAMELA MEI MD Location:[facility] Appointment Type:NS NIGHT SHIFT Appointment Date:02/24/2021 09:00:00 AM Scheduled Provider:BHAVIK TRIANA MD Location:[facility] Appointment Type:HEM ONC OV Follow Up w/Active Treatment Appointment Date:02/24/2021 09:30:00 AM Scheduled Provider: Location:INF Appointment Type:INF Chemo Appointment Date:03/10/2021 11:00:00 AM Scheduled Provider:LIAN FUNG MD Location:[facility] Appointment Type:PALL OV Follow Up Future Scheduled Tests Laboratory* Cortisol, Free Serum 02/17/21 * Creatinine 12/17/20 * Lactate Dehydrogenase 02/17/21 * Thyroid Stimulating Hormone 02/17/21 * Complete Blood Count 02/17/21 * Complete Metabolic Panel 02/17/21 Radiology* CT Abdomen w/ Contrast 10/16/20 * CT Thorax w/ Contrast 10/16/20 * MRI Thorax w/ Contrast 09/28/20 * MRI Spine Thoracic w/ + w/o Contrast 12/31/20 [facility] Evaluation + Plan note Future Appointments Appointment Date:02/24/2021 09:00:00 AM Scheduled Provider:BHAVIK TRIANA MD Location:[facility] Appointment Type:HEM ONC OV Follow Up w/Active Treatment Appointment Date:02/24/2021 09:30:00 AM Scheduled Provider: Location:INF Appointment Type:INF Chemo Appointment Date:03/10/2021 11:00:00 AM Scheduled Provider:LIAN FUNG MD Location:[facility] Appointment Type:PALL OV Follow Up Future Scheduled Tests Laboratory* Cortisol, Free Serum 02/17/21 * Creatinine 12/17/20 * Lactate Dehydrogenase 02/17/21 * Thyroid Stimulating Hormone 02/17/21 * Complete Blood Count 02/17/21 * Complete Metabolic Panel 02/17/21 Radiology* CT Abdomen w/ Contrast 10/16/20 * CT Thorax w/ Contrast 10/16/20 * MRI Thorax w/ Contrast 09/28/20 * MRI Spine Thoracic w/ + w/o Contrast 12/31/20 [facility] Evaluation + Plan note Future Appointments Appointment Date:03/10/2021 11:00:00 AM Scheduled Provider:LIAN FUNG MD Location:[facility] Appointment Type:PALL OV Follow Up Appointment Date:03/17/2021 09:30:00 AM Scheduled Provider:BHAVIK TRIANA MD Location:[facility] Appointment Type:HEM ONC OV Follow Up w/Active Treatment Appointment Date:03/17/2021 10:00:00 AM Scheduled Provider: Location:INF Appointment Type:INF Chemo: Infusion 180 min (3 hours) Future Scheduled Tests Laboratory* Cortisol, Free Serum 03/17/21 * COVID-19 Only (AO) 02/25/21 * Creatinine 12/17/20 * Lactate Dehydrogenase 03/17/21 * Thyroid Stimulating Hormone 03/17/21 * Free T4 03/17/21 * Complete Blood Count 03/17/21 * Free T3 03/17/21 * Complete Metabolic Panel 03/17/21 Radiology* CT Abdomen w/ Contrast 10/16/20 * CT Thorax w/ Contrast 10/16/20 * MRI Thorax w/ Contrast 09/28/20 * MRI Spine Thoracic w/ + w/o Contrast 12/31/20 [facility] Evaluation + Plan note Future Appointments Appointment Date:03/18/2021 11:30:00 AM Scheduled Provider:LIAN FUNG MD Location:[facility] Appointment Type:Telephone Appointment Date:04/07/2021 09:30:00 AM Scheduled Provider:BHAVIK TRIANA MD Location:[facility] Appointment Type:HEM ONC OV Follow Up w/Active Treatment Appointment Date:04/07/2021 10:00:00 AM Scheduled Provider: Location:INF Appointment Type:INF Chemo: Infusion 120 min (2 hours) Diagnostic Tests Pending * Cortisol, Free Serum 03/17/21 Future Scheduled Tests Laboratory* Cortisol, Free Serum 04/07/21 * COVID-19 Only (AO) 02/25/21 * Creatinine 12/17/20 * Lactate Dehydrogenase 04/07/21 * Thyroid Stimulating Hormone 04/07/21 * Free T4 04/07/21 * Complete Blood Count 04/07/21 * Free T3 04/07/21 * Complete Metabolic Panel 04/07/21 Radiology* CT Abdomen w/ Contrast 10/16/20 * CT Thorax w/ Contrast 10/16/20 * MRI Thorax w/ Contrast 09/28/20 * MRI Spine Thoracic w/ + w/o Contrast 12/31/20 [facility] Evaluation + Plan note Future Appointments Appointment Date:04/22/2021 11:00:00 AM Scheduled Provider:LIAN FUNG MD Location:[facility] Appointment Type:Telephone Appointment Date:04/28/2021 10:00:00 AM Scheduled Provider: Location:RAD Appointment Type:CT Chest w/ Contrast Appointment Date:05/05/2021 09:45:00 AM Scheduled Provider:BHAVIK TRIANA MD Location:[facility] Appointment Type:HEM ONC OV Follow Up w/Active Treatment Appointment Date:05/05/2021 10:15:00 AM Scheduled Provider: Location:INF Appointment Type:INF Chemo: Infusion 120 min (2 hours) Diagnostic Tests Pending * Cortisol, Free Serum 04/07/21 Future Scheduled Tests Laboratory* Cortisol, Free Serum 05/05/21 * COVID-19 Only (AO) 02/25/21 * Creatinine 12/17/20 * Lactate Dehydrogenase 05/05/21 * Thyroid Stimulating Hormone 05/05/21 * Free T4 05/05/21 * Complete Blood Count 05/05/21 * Free T3 05/05/21 * Complete Metabolic Panel 05/05/21 Radiology* CT Abdomen w/ Contrast 10/16/20 * CT Thorax w/ Contrast 04/28/21 * CT Thorax w/ Contrast 10/16/20 * MRI Thorax w/ Contrast 09/28/20 * MRI Spine Thoracic w/ + w/o Contrast 12/31/20 [facility] Evaluation + Plan note Future Appointments Appointment Date:05/05/2021 09:45:00 AM Scheduled Provider:BHAVIK TRIANA MD Location:[facility] Appointment Type:HEM ONC OV Follow Up w/Active Treatment Appointment Date:05/05/2021 10:15:00 AM Scheduled Provider: Location:INF Appointment Type:INF Chemo: Infusion 120 min (2 hours) Appointment Date:06/03/2021 11:30:00 AM Scheduled Provider:LIAN FUNG MD Location:[facility] Appointment Type:Telephone Future Scheduled Tests Laboratory* Cortisol, Free Serum 05/05/21 * COVID-19 Only (AO) 02/25/21 * Creatinine 12/17/20 * Lactate Dehydrogenase 05/05/21 * Thyroid Stimulating Hormone 05/05/21 * Thyroid Stimulating Hormone 05/05/21 * Free T4 05/05/21 * Free T4 05/05/21 * Complete Blood Count 05/05/21 * Complete Blood Count 05/05/21 * Cortisol Drawn in AM 05/05/21 * Free T3 05/05/21 * Free T3 05/05/21 * Complete Metabolic Panel 05/05/21 * Complete Metabolic Panel 05/05/21 Radiology* CT Abdomen w/ Contrast 10/16/20 * CT Thorax w/ Contrast 10/16/20 * MRI Thorax w/ Contrast 09/28/20 * MRI Spine Thoracic w/ + w/o Contrast 12/31/20 [facility] Evaluation + Plan note Future Appointments Appointment Date:06/02/2021 09:00:00 AM Scheduled Provider:BHAVIK TRIANA MD Location:[facility] Appointment Type:HEM ONC OV Follow Up w/Active Treatment Appointment Date:06/02/2021 09:30:00 AM Scheduled Provider: Location:INF Appointment Type:INF Chemo: Infusion 120 min (2 hours) Appointment Date:06/03/2021 11:30:00 AM Scheduled Provider:LIAN FUNG MD Location:[facility] Appointment Type:Telephone Future Scheduled Tests Laboratory* Cortisol, Free Serum 06/02/21 * Cortisol, Free Serum 05/05/21 * COVID-19 Only (AO) 02/25/21 * Creatinine 12/17/20 * Lactate Dehydrogenase 06/02/21 * Lactate Dehydrogenase 05/05/21 * Thyroid Stimulating Hormone 06/02/21 * Thyroid Stimulating Hormone 05/05/21 * Free T4 06/02/21 * Free T4 05/05/21 * Complete Blood Count 06/02/21 * Complete Blood Count 05/05/21 * Free T3 06/02/21 * Free T3 05/05/21 * Complete Metabolic Panel 06/02/21 * Complete Metabolic Panel 05/05/21 Radiology* CT Abdomen w/ Contrast 10/16/20 * CT Thorax w/ Contrast 10/16/20 * MRI Thorax w/ Contrast 09/28/20 * MRI Spine Thoracic w/ + w/o Contrast 12/31/20 [facility] Evaluation + Plan note Future Appointments Appointment Date:06/03/2021 11:30:00 AM Scheduled Provider:LIAN FUNG MD Location:[facility] Appointment Type:Telephone Appointment Date:06/30/2021 09:15:00 AM Scheduled Provider:BHAVIK TRIANA MD Location:[facility] Appointment Type:HEM ONC OV Follow Up w/Active Treatment Appointment Date:06/30/2021 09:45:00 AM Scheduled Provider: Location:INF Appointment Type:INF Chemo: Infusion 120 min (2 hours) Future Scheduled Tests Laboratory* Cortisol, Free Serum 06/30/21 * Cortisol, Free Serum 06/02/21 * Cortisol, Free Serum 05/05/21 * Creatinine 12/17/20 * Lactate Dehydrogenase 06/30/21 * Lactate Dehydrogenase 06/02/21 * Lactate Dehydrogenase 05/05/21 * Thyroid Stimulating Hormone 06/30/21 * Thyroid Stimulating Hormone 06/02/21 * Thyroid Stimulating Hormone 05/05/21 * Free T4 06/30/21 * Free T4 06/02/21 * Free T4 05/05/21 * Complete Blood Count 06/30/21 * Complete Blood Count 06/02/21 * Complete Blood Count 05/05/21 * Free T3 06/30/21 * Free T3 06/02/21 * Free T3 05/05/21 * Complete Metabolic Panel 06/30/21 * Complete Metabolic Panel 06/02/21 * Complete Metabolic Panel 05/05/21 * COVID-19 Only (AO) 02/25/21 Radiology* CT Abdomen w/ Contrast 10/16/20 * CT Thorax w/ Contrast 10/16/20 * MRI Thorax w/ Contrast 09/28/20 * MRI Spine Thoracic w/ + w/o Contrast 12/31/20 [facility] Evaluation + Plan note Future Appointments Appointment Date:07/28/2021 10:00:00 AM Scheduled Provider:BHAVIK TRIANA MD Location:[facility] Appointment Type:HEM ONC OV Follow Up w/Active Treatment Appointment Date:07/28/2021 10:30:00 AM Scheduled Provider: Location:INF Appointment Type:INF Chemo: Infusion 120 min (2 hours) Appointment Date:09/01/2021 10:30:00 AM Scheduled Provider:LIAN FUNG MD Location:[facility] Appointment Type:PALL OV Follow Up Future Scheduled Tests Laboratory* Cortisol, Free Serum 06/30/21 * Cortisol, Free Serum 06/02/21 * Cortisol, Free Serum 05/05/21 * Cortisol, Free Serum 07/28/21 * Creatinine 12/17/20 * Lactate Dehydrogenase 06/30/21 * Lactate Dehydrogenase 06/02/21 * Lactate Dehydrogenase 05/05/21 * Lactate Dehydrogenase 07/28/21 * Thyroid Stimulating Hormone 06/30/21 * Thyroid Stimulating Hormone 06/02/21 * Thyroid Stimulating Hormone 05/05/21 * Thyroid Stimulating Hormone 07/28/21 * Free T4 06/30/21 * Free T4 06/02/21 * Free T4 05/05/21 * Complete Blood Count 06/30/21 * Complete Blood Count 06/02/21 * Complete Blood Count 05/05/21 * Complete Blood Count 07/28/21 * Free T3 06/30/21 * Free T3 06/02/21 * Free T3 05/05/21 * Complete Metabolic Panel 06/30/21 * Complete Metabolic Panel 06/02/21 * Complete Metabolic Panel 05/05/21 * Complete Metabolic Panel 07/28/21 * COVID-19 Only (AO) 02/25/21 Radiology* CT Abdomen w/ Contrast 10/16/20 * CT Thorax w/ Contrast 10/16/20 * MRI Thorax w/ Contrast 09/28/20 * MRI Spine Thoracic w/ + w/o Contrast 12/31/20 [facility] Evaluation + Plan note Future Appointments Appointment Date:08/18/2021 10:00:00 AM Scheduled Provider: Location:[facility] Appointment Type:yyCT Abdomen and Pelvis w/ Contrast 3 Appointment Date:08/18/2021 10:30:00 AM Scheduled Provider: Location:[facility] Appointment Type:yyCT Chest w/ Contrast 3 Appointment Date:08/25/2021 09:30:00 AM Scheduled Provider:BHAVIK TRIANA MD Location:[facility] Appointment Type:HEM ONC OV Follow Up w/Active Treatment Appointment Date:08/25/2021 10:00:00 AM Scheduled Provider: Location:INF Appointment Type:INF Chemo Appointment Date:09/01/2021 10:30:00 AM Scheduled Provider:LIAN FUNG MD Location:[facility] Appointment Type:PALL OV Follow Up Future Scheduled Tests Laboratory* Cortisol, Free Serum 06/30/21 * Cortisol, Free Serum 06/02/21 * Cortisol, Free Serum 05/05/21 * Cortisol, Free Serum 08/25/21 * Creatinine 12/17/20 * Lactate Dehydrogenase 06/30/21 * Lactate Dehydrogenase 06/02/21 * Lactate Dehydrogenase 05/05/21 * Lactate Dehydrogenase 08/25/21 * Thyroid Stimulating Hormone 06/30/21 * Thyroid Stimulating Hormone 06/02/21 * Thyroid Stimulating Hormone 05/05/21 * Thyroid Stimulating Hormone 08/25/21 * Free T4 06/30/21 * Free T4 06/02/21 * Free T4 05/05/21 * Free T4 08/25/21 * Complete Blood Count 06/30/21 * Complete Blood Count 06/02/21 * Complete Blood Count 05/05/21 * Complete Blood Count 08/25/21 * Free T3 06/30/21 * Free T3 06/02/21 * Free T3 05/05/21 * Free T3 08/25/21 * Complete Metabolic Panel 06/30/21 * Complete Metabolic Panel 06/02/21 * Complete Metabolic Panel 05/05/21 * Complete Metabolic Panel 08/25/21 * COVID-19 Only (AO) 02/25/21 Radiology* CT Abdomen w/ Contrast 10/16/20 * CT Thorax w/ Contrast 10/16/20 * CT Thorax w/ Contrast 08/18/21 * MRI Thorax w/ Contrast 09/28/20 * CT Abdomen and Pelvis w/ contrast 08/18/21 * MRI Spine Thoracic w/ + w/o Contrast 12/31/20 [facility] Evaluation + Plan note Future Appointments Appointment Date:09/22/2021 09:15:00 AM Scheduled Provider:BHAVIK TRIANA MD Location:[facility] Appointment Type:HEM ONC OV Follow Up w/Active Treatment Appointment Date:09/22/2021 09:45:00 AM Scheduled Provider: Location:INF Appointment Type:INF Chemo: Infusion 120 min (2 hours) Appointment Date:11/03/2021 11:00:00 AM Scheduled Provider:LIAN FUNG MD Location:[facility] Appointment Type:PALL OV Follow Up Future Scheduled Tests Laboratory* Cortisol, Free Serum 06/30/21 * Cortisol, Free Serum 06/02/21 * Cortisol, Free Serum 09/22/21 * Cortisol, Free Serum 05/05/21 * Creatinine 12/17/20 * Lactate Dehydrogenase 06/30/21 * Lactate Dehydrogenase 06/02/21 * Lactate Dehydrogenase 09/22/21 * Lactate Dehydrogenase 05/05/21 * Thyroid Stimulating Hormone 06/30/21 * Thyroid Stimulating Hormone 06/02/21 * Thyroid Stimulating Hormone 09/22/21 * Thyroid Stimulating Hormone 05/05/21 * Free T4 06/30/21 * Free T4 06/02/21 * Free T4 09/22/21 * Free T4 05/05/21 * Complete Blood Count 06/30/21 * Complete Blood Count 06/02/21 * Complete Blood Count 09/22/21 * Complete Blood Count 05/05/21 * Free T3 06/30/21 * Free T3 06/02/21 * Free T3 09/22/21 * Free T3 05/05/21 * Complete Metabolic Panel 06/30/21 * Complete Metabolic Panel 06/02/21 * Complete Metabolic Panel 09/22/21 * Complete Metabolic Panel 05/05/21 * COVID-19 Only (AO) 02/25/21 Radiology* CT Abdomen w/ Contrast 10/16/20 * CT Thorax w/ Contrast 10/16/20 * CT Thorax w/ Contrast 08/18/21 * MRI Thorax w/ Contrast 09/28/20 * CT Abdomen and Pelvis w/ contrast 08/18/21 * MRI Spine Thoracic w/ + w/o Contrast 12/31/20 [facility] Evaluation + Plan note Future Appointments Appointment Date:10/20/2021 09:15:00 AM Scheduled Provider:BHAVIK TRIANA MD Location:[facility] Appointment Type:HEM ONC OV Follow Up w/Active Treatment Appointment Date:10/20/2021 09:45:00 AM Scheduled Provider: Location:INF Appointment Type:INF Chemo: Infusion 120 min (2 hours) Appointment Date:11/03/2021 11:00:00 AM Scheduled Provider:LIAN FUNG MD Location:[facility] Appointment Type:PALL OV Follow Up Diagnostic Tests Pending * Cortisol, Free Serum 09/22/21 Future Scheduled Tests Laboratory* Cortisol, Free Serum 06/30/21 * Cortisol, Free Serum 06/02/21 * Cortisol, Free Serum 10/20/21 * Cortisol, Free Serum 05/05/21 * Creatinine 12/17/20 * Lactate Dehydrogenase 06/30/21 * Lactate Dehydrogenase 06/02/21 * Lactate Dehydrogenase 10/20/21 * Lactate Dehydrogenase 05/05/21 * Thyroid Stimulating Hormone 06/30/21 * Thyroid Stimulating Hormone 06/02/21 * Thyroid Stimulating Hormone 10/20/21 * Thyroid Stimulating Hormone 05/05/21 * Free T4 06/30/21 * Free T4 06/02/21 * Free T4 10/20/21 * Free T4 05/05/21 * Complete Blood Count 06/30/21 * Complete Blood Count 06/02/21 * Complete Blood Count 10/20/21 * Complete Blood Count 05/05/21 * Free T3 06/30/21 * Free T3 06/02/21 * Free T3 05/05/21 * Complete Metabolic Panel 06/30/21 * Complete Metabolic Panel 06/02/21 * Complete Metabolic Panel 10/20/21 * Complete Metabolic Panel 05/05/21 * COVID-19 Only (AO) 02/25/21 Radiology* CT Abdomen w/ Contrast 10/16/20 * CT Thorax w/ Contrast 10/16/20 * CT Thorax w/ Contrast 08/18/21 * MRI Thorax w/ Contrast 09/28/20 * CT Abdomen and Pelvis w/ contrast 08/18/21 * MRI Spine Thoracic w/ + w/o Contrast 12/31/20 [facility] Evaluation + Plan note Future Appointments Appointment Date:12/29/2021 10:30:00 AM Scheduled Provider:PROSPER MANJARREZ DO Location:[facility] Appointment Type:PC OV Appointment Date:01/20/2022 08:30:00 AM Scheduled Provider: Location:INF Appointment Type:INF Labwork Appointment Date:01/20/2022 09:15:00 AM Scheduled Provider:BHAVIK TRIANA MD Location:[facility] Appointment Type:HEM ONC OV Follow Up w/Active Treatment Appointment Date:01/20/2022 09:45:00 AM Scheduled Provider: Location:INF Appointment Type:INF Chemo: Infusion 120 min (2 hours) Future Scheduled Tests Laboratory* Basic Metabolic Panel w/ Ionized Calcium (CC) 12/09/21 * Basic Metabolic Panel w/ Ionized Calcium (CC) 01/20/22 * Cortisol, Free Serum 06/30/21 * Cortisol, Free Serum 06/02/21 * Cortisol, Free Serum 05/05/21 * Creatinine 12/17/20 * Hepatic Function Panel 12/09/21 * Hepatic Function Panel 01/20/22 * Lactate Dehydrogenase 06/30/21 * Lactate Dehydrogenase 06/02/21 * Lactate Dehydrogenase 05/05/21 * Lactate Dehydrogenase 12/09/21 * Lactate Dehydrogenase 01/20/22 * Thyroid Stimulating Hormone 06/30/21 * Thyroid Stimulating Hormone 06/02/21 * Thyroid Stimulating Hormone 05/05/21 * Thyroid Stimulating Hormone 01/20/22 * Free T4 06/30/21 * Free T4 06/02/21 * Free T4 05/05/21 * Free T4 01/20/22 * Complete Blood Count 06/30/21 * Complete Blood Count 06/02/21 * Complete Blood Count 05/05/21 * Complete Blood Count 12/09/21 * Complete Blood Count 01/20/22 * Cortisol Drawn in AM 01/20/22 * Free T3 06/30/21 * Free T3 06/02/21 * Free T3 05/05/21 * Free T3 01/20/22 * Complete Metabolic Panel 06/30/21 * Complete Metabolic Panel 06/02/21 * Complete Metabolic Panel 05/05/21 * COVID-19 Only (AO) 02/25/21 Radiology* CT Thorax w/ Contrast 08/18/21 * XR Shoulder Minimum 2 Views Right 12/08/21 * CT Abdomen and Pelvis w/ contrast 08/18/21 * MRI Spine Thoracic w/ + w/o Contrast 12/31/20 [facility] Evaluation + Plan note Future Appointments Appointment Date:02/03/2022 02:30:00 PM Scheduled Provider:LIAN FUNG MD Location:[facility] Appointment Type:Telephone Appointment Date:02/17/2022 09:15:00 AM Scheduled Provider: Location:INF Appointment Type:INF Labwork Appointment Date:02/17/2022 10:00:00 AM Scheduled Provider:BHAVIK TRIANA MD Location:[facility] Appointment Type:HEM ONC OV Follow Up w/Active Treatment Appointment Date:02/17/2022 10:30:00 AM Scheduled Provider: Location:INF Appointment Type:INF Chemo: Infusion 120 min (2 hours) Appointment Date:03/03/2022 10:30:00 AM Scheduled Provider: Location:RAD Appointment Type:yyCT Abdomen and Pelvis w/ Contrast 3 Appointment Date:03/03/2022 11:00:00 AM Scheduled Provider: Location:RAD Appointment Type:yyCT Chest w/ Contrast 3 Appointment Date:03/07/2022 08:00:00 AM Scheduled Provider: Location:IR Appointment Type:IR Tunneled Catheter Insertion/Port Future Scheduled Tests Laboratory* Basic Metabolic Panel w/ Ionized Calcium (CC) 12/09/21 * Basic Metabolic Panel w/ Ionized Calcium (CC) 02/17/22 * Cortisol, Free Serum 06/30/21 * Cortisol, Free Serum 06/02/21 * Cortisol, Free Serum 05/05/21 * Hepatic Function Panel 12/09/21 * Lactate Dehydrogenase 06/30/21 * Lactate Dehydrogenase 06/02/21 * Lactate Dehydrogenase 05/05/21 * Lactate Dehydrogenase 12/09/21 * Lactate Dehydrogenase 02/17/22 * Thyroid Stimulating Hormone 06/30/21 * Thyroid Stimulating Hormone 06/02/21 * Thyroid Stimulating Hormone 05/05/21 * Thyroid Stimulating Hormone 02/17/22 * Free T4 06/30/21 * Free T4 06/02/21 * Free T4 05/05/21 * Free T4 02/17/22 * Hepatic Function Panel ([facility]) 02/17/22 * Complete Blood Count 06/30/21 * Complete Blood Count 06/02/21 * Complete Blood Count 05/05/21 * Complete Blood Count 12/09/21 * Complete Blood Count 02/17/22 * Cortisol Drawn in AM 02/17/22 * Free T3 06/30/21 * Free T3 06/02/21 * Free T3 05/05/21 * Free T3 02/17/22 * Complete Metabolic Panel 06/30/21 * Complete Metabolic Panel 06/02/21 * Complete Metabolic Panel 05/05/21 * COVID-19 Only (AO) 02/25/21 Radiology* IR Tunneled Catheter Insertion/Port 03/07/22 * CT Thorax w/ Contrast 03/03/22 * CT Thorax w/ Contrast 08/18/21 * XR Shoulder Minimum 2 Views Right 12/08/21 * CT Abdomen and Pelvis w/ contrast 03/03/22 * CT Abdomen and Pelvis w/ contrast 08/18/21 [facility] Evaluation + Plan note Future Appointments Appointment Date:03/17/2022 09:30:00 AM Scheduled Provider: Location:INF Appointment Type:INF Labwork Appointment Date:03/17/2022 10:15:00 AM Scheduled Provider:BHAVIK TRIANA MD Location:[facility] Appointment Type:HEM ONC OV Follow Up w/Active Treatment Appointment Date:03/17/2022 10:45:00 AM Scheduled Provider: Location:INF Appointment Type:INF Chemo: Infusion 120 min (2 hours) Appointment Date:03/17/2022 11:00:00 AM Scheduled Provider:LIAN FUNG MD Location:[facility] Appointment Type:PALL OV Follow Up Appointment Date:03/21/2022 09:00:00 AM Scheduled Provider: Location:IR Appointment Type:IR Procedure Follow Up Future Scheduled Tests Laboratory* Basic Metabolic Panel w/ Ionized Calcium (CC) 03/17/22 * Basic Metabolic Panel w/ Ionized Calcium (CC) 12/09/21 * Cortisol, Free Serum 06/30/21 * Cortisol, Free Serum 06/02/21 * Cortisol, Free Serum 05/05/21 * Hepatic Function Panel 12/09/21 * Lactate Dehydrogenase 06/30/21 * Lactate Dehydrogenase 06/02/21 * Lactate Dehydrogenase 05/05/21 * Lactate Dehydrogenase 03/17/22 * Lactate Dehydrogenase 12/09/21 * Thyroid Stimulating Hormone 06/30/21 * Thyroid Stimulating Hormone 06/02/21 * Thyroid Stimulating Hormone 05/05/21 * Thyroid Stimulating Hormone 03/17/22 * Free T4 06/30/21 * Free T4 06/02/21 * Free T4 05/05/21 * Free T4 03/17/22 * Hepatic Function Panel ([facility]) 03/17/22 * Complete Blood Count 06/30/21 * Complete Blood Count 06/02/21 * Complete Blood Count 05/05/21 * Complete Blood Count 03/17/22 * Complete Blood Count 12/09/21 * Cortisol Drawn in AM 03/17/22 * Free T3 06/30/21 * Free T3 06/02/21 * Free T3 05/05/21 * Free T3 03/17/22 * Complete Metabolic Panel 06/30/21 * Complete Metabolic Panel 06/02/21 * Complete Metabolic Panel 05/05/21 Radiology* IR Procedure Follow Up 03/21/22 * CT Thorax w/ Contrast 08/18/21 * XR Shoulder Minimum 2 Views Right 12/08/21 * CT Abdomen and Pelvis w/ contrast 08/18/21 [facility] Evaluation + Plan note Future Appointments Appointment Date:03/21/2022 09:00:00 AM Scheduled Provider: Location:IR Appointment Type:IR Procedure Follow Up Appointment Date:04/14/2022 09:30:00 AM Scheduled Provider: Location:INF Appointment Type:INF Labwork Appointment Date:04/14/2022 10:15:00 AM Scheduled Provider:BHAVIK TRIANA MD Location:[facility] Appointment Type:HEM ONC OV Follow Up w/Active Treatment Appointment Date:04/14/2022 10:45:00 AM Scheduled Provider: Location:INF Appointment Type:INF Chemo: Infusion 120 min (2 hours) Appointment Date:05/12/2022 11:00:00 AM Scheduled Provider:LIAN FUNG MD Location:[facility] Appointment Type:PALL OV Follow Up Future Scheduled Tests Laboratory* Cortisol Level 04/14/22 * Basic Metabolic Panel w/ Ionized Calcium (CC) 04/14/22 * Thyroid Stimulating Hormone 04/14/22 * Hepatic Function Panel ([facility]) 04/14/22 * Complete Blood Count 04/14/22 Radiology* IR Procedure Follow Up 03/21/22 * CT Thorax w/ Contrast 08/18/21 * XR Shoulder Minimum 2 Views Right 12/08/21 * CT Abdomen and Pelvis w/ contrast 08/18/21 [facility] Evaluation + Plan note Future Appointments Appointment Date:06/09/2022 09:15:00 AM Scheduled Provider: Location:INF Appointment Type:INF Labwork Appointment Date:06/09/2022 10:00:00 AM Scheduled Provider:BHAVIK TRIANA MD Location:[facility] Appointment Type:HEM ONC OV Follow Up w/Active Treatment Appointment Date:06/09/2022 10:30:00 AM Scheduled Provider: Location:INF Appointment Type:INF Chemo: Infusion 120 min (2 hours) Appointment Date:07/07/2022 11:00:00 AM Scheduled Provider:LIAN FUNG MD Location:[facility] Appointment Type:PALL OV Follow Up Future Scheduled Tests Laboratory* Cortisol Level 06/09/22 * Lactate Dehydrogenase 06/09/22 * Thyroid Stimulating Hormone 06/09/22 * Free T4 06/09/22 * Complete Blood Count 06/09/22 * Free T3 06/09/22 * Complete Metabolic Panel 06/09/22 Radiology* CT Thorax w/ Contrast 08/18/21 * XR Shoulder Minimum 2 Views Right 12/08/21 * CT Abdomen and Pelvis w/ contrast 08/18/21 [facility] Evaluation + Plan note Future Appointments Appointment Date:07/07/2022 08:15:00 AM Scheduled Provider: Location:INF Appointment Type:INF Labwork Appointment Date:07/07/2022 09:00:00 AM Scheduled Provider:BHAVIK TRIANA MD Location:[facility] Appointment Type:HEM ONC OV Follow Up w/Active Treatment Appointment Date:07/07/2022 09:30:00 AM Scheduled Provider: Location:INF Appointment Type:INF Chemo: Infusion 120 min (2 hours) Appointment Date:07/07/2022 11:00:00 AM Scheduled Provider:LIAN FUNG MD Location:[facility] Appointment Type:PALL OV Follow Up Future Scheduled Tests Laboratory* Cortisol Level 07/07/22 * Lactate Dehydrogenase 07/07/22 * Thyroid Stimulating Hormone 07/07/22 * Free T4 07/07/22 * Complete Blood Count 07/07/22 * Free T3 07/07/22 * Complete Metabolic Panel 07/07/22 Radiology* CT Thorax w/ Contrast 08/18/21 * XR Shoulder Minimum 2 Views Right 12/08/21 * CT Abdomen and Pelvis w/ contrast 08/18/21 [facility] Evaluation + Plan note Future Appointments Appointment Date:08/04/2022 08:15:00 AM Scheduled Provider: Location:INF Appointment Type:INF Labwork Appointment Date:08/04/2022 09:00:00 AM Scheduled Provider:BHAVIK TRIANA MD Location:[facility] Appointment Type:HEM ONC OV Follow Up w/Active Treatment Appointment Date:08/04/2022 09:30:00 AM Scheduled Provider: Location:INF Appointment Type:INF Chemo: Infusion 120 min (2 hours) Appointment Date:08/24/2022 08:00:00 PM Scheduled Provider: Location:[facility] Appointment Type: PSG (Polysomnograph) Appointment Date:09/01/2022 11:00:00 AM Scheduled Provider:LIAN FUNG MD Location:[facility] Appointment Type:PALL OV Follow Up Future Scheduled Tests Laboratory* Cortisol Level 08/04/22 * Lactate Dehydrogenase 08/04/22 * Thyroid Stimulating Hormone 08/04/22 * Free T4 08/04/22 * Complete Blood Count 08/04/22 * Free T3 08/04/22 * Complete Metabolic Panel 08/04/22 Radiology* CT Thorax w/ Contrast 08/18/21 * XR Shoulder Minimum 2 Views Right 12/08/21 * CT Abdomen and Pelvis w/ contrast 08/18/21 [facility] Evaluation + Plan note Future Appointments Appointment Date:10/20/2022 10:30:00 AM Scheduled Provider:PROSPER MANJARREZ DO Location:[facility] Appointment Type:PC OV Appointment Date:10/24/2022 02:00:00 PM Scheduled Provider:LIAN FUNG MD Location:[facility] Appointment Type:Telephone Appointment Date:10/27/2022 09:30:00 AM Scheduled Provider: Location:INF Appointment Type:INF Labwork Appointment Date:10/27/2022 10:15:00 AM Scheduled Provider:BHAVIK TRIANA MD Location:[facility] Appointment Type:HEM ONC OV Follow Up w/Active Treatment Appointment Date:10/27/2022 10:45:00 AM Scheduled Provider: Location:INF Appointment Type:INF Chemo: Infusion 120 min (2 hours) Future Scheduled Tests Laboratory* Cortisol Level 10/27/22 * Lactate Dehydrogenase 10/27/22 * Thyroid Stimulating Hormone 10/27/22 * Free T4 10/27/22 * Complete Blood Count 10/27/22 * Free T3 10/27/22 * Complete Metabolic Panel 10/27/22 Radiology* XR Shoulder Minimum 2 Views Right 12/08/21 [facility] evaluation + Plan note Future Appointments Appointment Date:10/27/2022 09:30:00 AM Scheduled Provider: Location:INF Appointment Type:INF Labwork Appointment Date:10/27/2022 10:15:00 AM Scheduled Provider:BHAVIK TRIANA MD Location:[facility] Appointment Type:HEM ONC OV Follow Up w/Active Treatment Appointment Date:10/27/2022 10:45:00 AM Scheduled Provider: Location:INF Appointment Type:INF Chemo: Infusion 120 min (2 hours) Appointment Date:11/23/2022 01:30:00 PM Scheduled Provider:LIAN FUNG MD Location:[facility] Appointment Type:PALL OV Follow Up Future Scheduled Tests Laboratory* Cortisol Level 10/27/22 * Lactate Dehydrogenase 10/27/22 * Thyroid Stimulating Hormone 10/27/22 * Free T4 10/27/22 * Complete Blood Count 10/27/22 * Free T3 10/27/22 * Complete Metabolic Panel 10/27/22 Radiology* XR Shoulder Minimum 2 Views Right 12/08/21 [facility] evaluation + Plan note Future Appointments Appointment Date:11/24/2022 09:45:00 AM Scheduled Provider: Location:INF Appointment Type:INF Labwork Appointment Date:11/24/2022 10:30:00 AM Scheduled Provider:BHAVIK TRIANA MD Location:[facility] Appointment Type:HEM ONC OV Follow Up w/Active Treatment Appointment Date:11/24/2022 11:00:00 AM Scheduled Provider: Location:INF Appointment Type:INF Chemo: Infusion 120 min (2 hours) Appointment Date:11/24/2022 11:30:00 AM Scheduled Provider:LIAN FUNG MD Location:[facility] Appointment Type:PALL OV Follow Up Future Scheduled Tests Laboratory* Cortisol Level 11/24/22 * Lactate Dehydrogenase 11/24/22 * Thyroid Stimulating Hormone 11/24/22 * Free T4 11/24/22 * Complete Blood Count 11/24/22 * Free T3 11/24/22 * Complete Metabolic Panel 11/24/22 Radiology* XR Shoulder Minimum 2 Views Right 12/08/21 [facility] Evaluation + Plan note Future Appointments Appointment Date:12/01/2022 01:00:00 PM Scheduled Provider:LIAN FUNG MD Location:[facility] Appointment Type:Telephone Appointment Date:12/22/2022 09:30:00 AM Scheduled Provider: Location:INF Appointment Type:INF Labwork Appointment Date:12/22/2022 09:45:00 AM Scheduled Provider: Location:INF Appointment Type:INF Chemo: Infusion 120 min (2 hours) Appointment Date:01/19/2023 09:15:00 AM Scheduled Provider: Location:INF Appointment Type:INF Labwork Appointment Date:01/19/2023 10:00:00 AM Scheduled Provider:BHAVIK TRIANA MD Location:[facility] Appointment Type:HEM ONC OV Follow Up w/Active Treatment Appointment Date:01/19/2023 10:30:00 AM Scheduled Provider: Location:INF Appointment Type:INF Chemo: Infusion 120 min (2 hours) Future Scheduled Tests Laboratory* Cortisol Level 12/22/22 * Cortisol Level 01/19/23 * Lactate Dehydrogenase 12/22/22 * Lactate Dehydrogenase 01/19/23 * Thyroid Stimulating Hormone 12/22/22 * Thyroid Stimulating Hormone 01/19/23 * Free T4 12/22/22 * Free T4 01/19/23 * Complete Blood Count 12/22/22 * Complete Blood Count 01/19/23 * Free T3 12/22/22 * Free T3 01/19/23 * Complete Metabolic Panel 12/22/22 * Complete Metabolic Panel 01/19/23 Radiology* XR Shoulder Minimum 2 Views Right 12/08/21 [facility] Evaluation + Plan note Future Appointments Appointment Date:12/22/2022 09:30:00 AM Scheduled Provider: Location:INF Appointment Type:INF Labwork Appointment Date:12/22/2022 09:45:00 AM Scheduled Provider: Location:INF Appointment Type:INF Chemo: Infusion 120 min (2 hours) Appointment Date:01/19/2023 09:15:00 AM Scheduled Provider: Location:INF Appointment Type:INF Labwork Appointment Date:01/19/2023 10:00:00 AM Scheduled Provider:BHAVIK TRIANA MD Location:[facility] Appointment Type:HEM ONC OV Follow Up w/Active Treatment Appointment Date:01/19/2023 10:30:00 AM Scheduled Provider: Location:INF Appointment Type:INF Chemo: Infusion 120 min (2 hours) Appointment Date:01/19/2023 11:30:00 AM Scheduled Provider:LIAN FUNG MD Location:[facility] Appointment Type:PALL OV Follow Up Future Scheduled Tests Laboratory* Cortisol Level 12/22/22 * Cortisol Level 01/19/23 * Lactate Dehydrogenase 12/22/22 * Lactate Dehydrogenase 01/19/23 * Thyroid Stimulating Hormone 12/22/22 * Thyroid Stimulating Hormone 01/19/23 * Free T4 12/22/22 * Free T4 01/19/23 * Complete Blood Count 12/22/22 * Complete Blood Count 01/19/23 * Free T3 12/22/22 * Free T3 01/19/23 * Complete Metabolic Panel 12/22/22 * Complete Metabolic Panel 01/19/23 Radiology* XR Shoulder Minimum 2 Views Right 12/08/21 [facility] Evaluation + Plan note Future Appointments Appointment Date:02/16/2023 09:15:00 AM Scheduled Provider: Location:INF Appointment Type:INF Labwork Appointment Date:02/16/2023 10:00:00 AM Scheduled Provider:BHAVIK TRIANA MD Location:[facility] Appointment Type:HEM ONC OV Follow Up w/Active Treatment Appointment Date:02/16/2023 10:30:00 AM Scheduled Provider: Location:INF Appointment Type:INF Chemo: Infusion 120 min (2 hours) Appointment Date:03/16/2023 10:00:00 AM Scheduled Provider:LIAN FUNG MD Location:[facility] Appointment Type:PALL OV Follow Up Future Scheduled Tests Laboratory* Cortisol Level 02/16/23 * Lactate Dehydrogenase 02/16/23 * Thyroid Stimulating Hormone 02/16/23 * Free T4 02/16/23 * Complete Blood Count 02/16/23 * Free T3 02/16/23 * Complete Metabolic Panel 02/16/23 [facility] Evaluation + Plan note Future Appointments Appointment Date:03/09/2023 10:30:00 AM Scheduled Provider: Location:[facility] Appointment Type:CT Chest w/o Contrast Appointment Date:03/09/2023 11:00:00 AM Scheduled Provider: Location:[facility] Appointment Type:CT Abdomen/Pelvis w/Oral Contrast Only Appointment Date:03/16/2023 09:45:00 AM Scheduled Provider: Location:INF Appointment Type:INF Labwork Appointment Date:03/16/2023 10:00:00 AM Scheduled Provider:LIAN FUNG MD Location:[facility] Appointment Type:PALL OV Follow Up Appointment Date:03/16/2023 10:30:00 AM Scheduled Provider:BHAVIK TRIANA MD Location:[facility] Appointment Type:HEM ONC OV Follow Up w/Active Treatment Appointment Date:03/16/2023 11:00:00 AM Scheduled Provider: Location:INF Appointment Type:INF Chemo: Infusion 120 min (2 hours) Future Scheduled Tests Laboratory* Cortisol Level 03/16/23 * Lactate Dehydrogenase 03/16/23 * Thyroid Stimulating Hormone 03/16/23 * Free T4 03/16/23 * Complete Blood Count 03/16/23 * Free T3 03/16/23 * Complete Metabolic Panel 03/16/23 Radiology* CT Abdomen/Pelvis w/Oral Contrast Only 03/09/23 * CT Thorax w/o Contrast 03/09/23 [facility] Evaluation + Plan note Future Appointments Appointment Date:07/27/2023 02:15:00 PM Scheduled Provider:BHAVIK TRIANA MD Location:[facility] Appointment Type:[facility] OV Follow Up Appointment Date:07/28/2023 10:20:00 AM Scheduled Provider:PROSPER MANJARREZ DO Location:[facility] Appointment Type:PC OV Future Scheduled Tests Laboratory* Cortisol Level 03/16/23 * Lactate Dehydrogenase 03/16/23 * Thyroid Stimulating Hormone 03/16/23 * Free T4 03/16/23 * Complete Blood Count 03/16/23 * Free T3 03/16/23 * Complete Metabolic Panel 03/16/23 Radiology* CT Abdomen/Pelvis w/Oral Contrast Only 03/09/23 * CT Thorax w/o Contrast 03/09/23 [facility] Evaluation + Plan note Future Appointments Appointment Date:07/28/2023 10:20:00 AM Scheduled Provider:PROSPER MANJARREZ DO Location:[facility] Appointment Type:PC OV Appointment Date:08/09/2023 09:00:00 AM Scheduled Provider:LIAN FUNG MD Location:[facility] Appointment Type:PALL OV Follow Up Appointment Date:08/24/2023 02:45:00 PM Scheduled Provider:BHAVIK TRIANA MD Location:[facility] Appointment Type:[facility] OV Follow Up Future Scheduled Tests Laboratory* Cortisol Level 07/27/23 * Lactate Dehydrogenase 07/27/23 * Lactate Dehydrogenase 08/24/23 * Thyroid Stimulating Hormone 07/27/23 * Free T4 07/27/23 * Complete Blood Count 07/27/23 * Complete Blood Count 08/24/23 * Free T3 07/27/23 * Complete Metabolic Panel 07/27/23 * Complete Metabolic Panel 08/24/23 Radiology* CT Abdomen/Pelvis w/Oral Contrast Only 03/09/23 * CT Thorax w/o Contrast 03/09/23 [facility] Evaluation + Plan note Future Appointments Appointment Date:09/14/2023 01:30:00 PM Scheduled Provider:LIAN FUNG MD Location:[facility] Appointment Type:PALL OV Follow Up Appointment Date:10/19/2023 01:30:00 PM Scheduled Provider:BHAVIK TRIANA MD Location:[facility] Appointment Type:[facility]M [facility]C OV Follow Up w/Active Treatment Appointment Date:11/30/2023 03:30:00 PM Scheduled Provider:PROSPER MANJARREZ DO Location:[facility] Appointment Type:PC Wellness Annual Future Scheduled Tests Laboratory* Cortisol Level 09/21/23 * Cortisol Level 10/19/23 * Lactate Dehydrogenase 09/21/23 * Lactate Dehydrogenase 10/19/23 * Thyroid Stimulating Hormone 09/21/23 * Thyroid Stimulating Hormone 10/19/23 * Free T4 09/21/23 * Free T4 10/19/23 * Complete Blood Count 09/21/23 * Complete Blood Count 10/19/23 * Free T3 09/21/23 * Free T3 10/19/23 * Lipid Profile 11/27/23 * Complete Metabolic Panel 09/21/23 * Complete Metabolic Panel 10/19/23 * Complete Metabolic Panel 11/27/23 Radiology* CT Abdomen/Pelvis w/Oral Contrast Only 03/09/23 * CT Thorax w/ Contrast 10/12/23 * CT Thorax w/o Contrast 03/09/23 * CT Abdomen and Pelvis w/ contrast 10/12/23 [facility] Evaluation + Plan note Future Appointments Appointment Date:09/14/2023 01:30:00 PM Scheduled Provider:LIAN FUNG MD Location:[facility] Appointment Type:PALL OV Follow Up Appointment Date:09/21/2023 01:00:00 PM Scheduled Provider: Location:[facility] Appointment Type:INF Labwork Appointment Date:09/21/2023 01:15:00 PM Scheduled Provider: Location:[facility] Appointment Type:INF Chemo: Infusion 60 min (1 hour) Appointment Date:10/12/2023 10:30:00 AM Scheduled Provider: Location:[facility] Appointment Type:yyCT Abdomen and Pelvis w/ Contrast 3 Appointment Date:10/12/2023 11:00:00 AM Scheduled Provider: Location:[facility] Appointment Type:yyCT Chest w/ Contrast 3 Appointment Date:10/19/2023 12:15:00 PM Scheduled Provider: Location:[facility] Appointment Type:INF Labwork Appointment Date:10/19/2023 01:30:00 PM Scheduled Provider:BHAVIK TRIANA MD Location:[facility] Appointment Type:[facility] OV Follow Up w/Active Treatment Appointment Date:10/19/2023 02:00:00 PM Scheduled Provider: Location:[facility] Appointment Type:INF Chemo: Infusion 60 min (1 hour) Appointment Date:11/30/2023 03:30:00 PM Scheduled Provider:PROSPER MANJARREZ DO Location:[facility] Appointment Type:PC Wellness Annual Diagnostic Tests Pending * Urine Culture 08/31/23 Future Scheduled Tests Laboratory* Cortisol Level 09/21/23 * Cortisol Level 10/19/23 * Lactate Dehydrogenase 09/21/23 * Lactate Dehydrogenase 10/19/23 * Thyroid Stimulating Hormone 09/21/23 * Thyroid Stimulating Hormone 10/19/23 * Free T4 09/21/23 * Free T4 10/19/23 * Complete Blood Count 09/21/23 * Complete Blood Count 10/19/23 * Free T3 09/21/23 * Free T3 10/19/23 * Lipid Profile 11/27/23 * Complete Metabolic Panel 09/21/23 * Complete Metabolic Panel 10/19/23 * Complete Metabolic Panel 11/27/23 Radiology* CT Abdomen/Pelvis w/Oral Contrast Only 03/09/23 * CT Thorax w/ Contrast 10/12/23 * CT Thorax w/o Contrast 03/09/23 * CT Abdomen and Pelvis w/ contrast 10/12/23 [facility] Evaluation + Plan note Future Appointments Appointment Date:10/06/2023 02:15:00 PM Scheduled Provider: Location:[facility] Appointment Type:CV OV [facility] Appointment Date:10/11/2023 03:45:00 PM Scheduled Provider: Location:[facility] Appointment Type:PC Nurse Protime Appointment Date:10/12/2023 10:30:00 AM Scheduled Provider: Location:[facility] Appointment Type:yyCT Abdomen and Pelvis w/ Contrast 3 Appointment Date:10/12/2023 11:00:00 AM Scheduled Provider: Location:[facility] Appointment Type:yyCT Chest w/ Contrast 3 Appointment Date:10/19/2023 12:15:00 PM Scheduled Provider: Location:[facility] Appointment Type:INF/OSP Labwork Appointment Date:10/19/2023 01:00:00 PM Scheduled Provider:LIAN FUNG MD Location:[facility] Appointment Type:PALL OV Follow Up Appointment Date:10/19/2023 01:30:00 PM Scheduled Provider:BHAVIK TRIANA MD Location:[facility] Appointment Type:[facility] OV Follow Up w/Active Treatment Appointment Date:10/19/2023 02:00:00 PM Scheduled Provider: Location:[facility] Appointment Type:INF Chemo: Infusion 60 min (1 hour) Appointment Date:11/30/2023 03:30:00 PM Scheduled Provider:PROSPER MANJARREZ DO Location:[facility] Appointment Type:PC Wellness Annual Future Scheduled Tests Laboratory* Cortisol Level 09/21/23 * Cortisol Level 10/19/23 * Lactate Dehydrogenase 09/21/23 * Lactate Dehydrogenase 10/19/23 * Thyroid Stimulating Hormone 09/21/23 * Thyroid Stimulating Hormone 10/19/23 * Free T4 09/21/23 * Free T4 10/19/23 * Complete Blood Count 09/21/23 * Complete Blood Count 10/19/23 * Free T3 09/21/23 * Free T3 10/19/23 * Lipid Profile 11/27/23 * Complete Metabolic Panel 09/21/23 * Complete Metabolic Panel 10/19/23 * Complete Metabolic Panel 11/27/23 Radiology* CT Abdomen/Pelvis w/Oral Contrast Only 03/09/23 * CT Thorax w/ Contrast 10/12/23 * CT Thorax w/o Contrast 03/09/23 * CT Abdomen and Pelvis w/ contrast 10/12/23 [facility] Evaluation + Plan note Future Appointments Appointment Date:10/18/2023 03:45:00 PM Scheduled Provider: Location:[facility] Appointment Type:PC Nurse Protime Appointment Date:10/19/2023 12:15:00 PM Scheduled Provider: Location:[facility] Appointment Type:INF/OSP Labwork Appointment Date:10/19/2023 01:00:00 PM Scheduled Provider:LIAN FUNG MD Location:[facility] Appointment Type:PALL OV Follow Up Appointment Date:10/19/2023 01:30:00 PM Scheduled Provider:BHAVIK TRIANA MD Location:[facility] Appointment Type:[facility] OV Follow Up w/Active Treatment Appointment Date:10/19/2023 02:00:00 PM Scheduled Provider: Location:[facility] Appointment Type:INF Chemo: Infusion 60 min (1 hour) Appointment Date:11/17/2023 10:00:00 AM Scheduled Provider: Location:[facility] Appointment Type:CV [facility] Appointment Date:11/30/2023 03:30:00 PM Scheduled Provider:PROSPER MANJARREZ DO Location:[facility] Appointment Type:PC Wellness Annual Future Scheduled Tests Laboratory* Cortisol Level 09/21/23 * Cortisol Level 10/19/23 * Antinuclear Antibody Screen, Serum 10/06/23 * C-Reactive Protein 10/06/23 * Lactate Dehydrogenase 09/21/23 * Lactate Dehydrogenase 10/19/23 * Thyroid Stimulating Hormone 09/21/23 * Thyroid Stimulating Hormone 10/19/23 * Free T4 09/21/23 * Free T4 10/19/23 * Anti-Centromere Ab by IFA(RDL) 10/06/23 * Rheumatoid Factor 10/06/23 * Complete Blood Count 09/21/23 * Complete Blood Count 10/19/23 * Free T3 09/21/23 * Free T3 10/19/23 * Lipid Profile 11/27/23 * HIV 1/2 Ab 10/06/23 * Complete Metabolic Panel 09/21/23 * Complete Metabolic Panel 10/19/23 * Complete Metabolic Panel 11/27/23 Radiology* CT Abdomen/Pelvis w/Oral Contrast Only 03/09/23 * CT Thorax w/o Contrast 03/09/23 [facility] Evaluation + Plan note Future Appointments Appointment Date:11/01/2023 02:15:00 PM Scheduled Provider: Location:[facility] Appointment Type:PC Nurse Protime Appointment Date:11/16/2023 10:30:00 AM Scheduled Provider:EZEQUIEL LEAL Location:[facility] Appointment Type:[facility] OV Follow Up w/Active Treatment Appointment Date:11/16/2023 01:30:00 PM Scheduled Provider:REILLY COLEMAN Location:[facility] Appointment Type:PALL OV Follow Up Appointment Date:11/17/2023 10:00:00 AM Scheduled Provider: Location:[facility] Appointment Type:CV OV [facility] Appointment Date:11/30/2023 03:30:00 PM Scheduled Provider:PROSPER MANJARREZ DO Location:[facility] Appointment Type:PC Wellness Annual Future Scheduled Tests Laboratory* Antinuclear Antibody Screen, Serum 10/06/23 * C-Reactive Protein 10/06/23 * Lactate Dehydrogenase 11/16/23 * Thyroid Stimulating Hormone 11/16/23 * Free T4 11/16/23 * Anti-Centromere Ab by IFA(RDL) 10/06/23 * Rheumatoid Factor 10/06/23 * Complete Blood Count 11/16/23 * Free T3 11/16/23 * Lipid Profile 11/27/23 * HIV 1/2 Ab 10/06/23 * Complete Metabolic Panel 11/16/23 * Complete Metabolic Panel 11/27/23 Radiology* CT Abdomen/Pelvis w/Oral Contrast Only 03/09/23 * CT Thorax w/o Contrast 03/09/23 [facility] Evaluation + Plan note Future Appointments Appointment Date:11/15/2023 02:15:00 PM Scheduled Provider: Location:[facility] Appointment Type:PC Nurse Protime Appointment Date:11/16/2023 09:45:00 AM Scheduled Provider: Location:[facility] Appointment Type:INF/OSP Labwork Appointment Date:11/16/2023 10:30:00 AM Scheduled Provider:EZEQUIEL LEAL Location:[facility] Appointment Type:[facility] OV Follow Up w/Active Treatment Appointment Date:11/16/2023 11:00:00 AM Scheduled Provider: Location:[facility] Appointment Type:INF Chemo: Infusion 120 min (2 hours) Appointment Date:11/16/2023 01:30:00 PM Scheduled Provider:REILLY COLEMAN Location:[facility] Appointment Type:PALL OV Follow Up Appointment Date:11/30/2023 03:30:00 PM Scheduled Provider:PROSPER MANJARREZ DO Location:[facility] Appointment Type:PC Wellness Annual Appointment Date:12/06/2023 11:00:00 AM Scheduled Provider: Location:[facility] Appointment Type:CV OV CHF Future Scheduled Tests Laboratory* Antinuclear Antibody Screen, Serum 10/06/23 * C-Reactive Protein 10/06/23 * Lactate Dehydrogenase 11/16/23 * Thyroid Stimulating Hormone 11/16/23 * Free T4 11/16/23 * Anti-Centromere Ab by IFA(RDL) 10/06/23 * Rheumatoid Factor 10/06/23 * Complete Blood Count 11/16/23 * Free T3 11/16/23 * Lipid Profile 11/27/23 * HIV 1/2 Ab 10/06/23 * Complete Metabolic Panel 11/16/23 * Complete Metabolic Panel 11/27/23 Radiology* CT Abdomen/Pelvis w/Oral Contrast Only 03/09/23 * CT Thorax w/o Contrast 03/09/23 [facility] Evaluation + Plan note Future Appointments Appointment Date:11/29/2023 02:15:00 PM Scheduled Provider: Location:[facility] Appointment Type:PC Nurse Protime Appointment Date:11/30/2023 03:30:00 PM Scheduled Provider:PROSPER MANJARREZ DO Location:[facility] Appointment Type:PC Wellness Annual Appointment Date:12/06/2023 11:00:00 AM Scheduled Provider: Location:[facility] Appointment Type:CV OV CHF Appointment Date:12/14/2023 09:15:00 AM Scheduled Provider: Location:[facility] Appointment Type:INF/OSP Labwork Appointment Date:12/14/2023 10:00:00 AM Scheduled Provider:BHAVIK TRIANA MD Location:[facility] Appointment Type:[facility] OV Follow Up w/Active Treatment Appointment Date:12/14/2023 10:30:00 AM Scheduled Provider: Location:[facility] Appointment Type:INF Chemo: Infusion 120 min (2 hours) Appointment Date:12/14/2023 11:00:00 AM Scheduled Provider:LIAN FUNG MD Location:[facility] Appointment Type:PALL OV Follow Up Future Scheduled Tests Laboratory* Cortisol Level 12/14/23 * Antinuclear Antibody Screen, Serum 10/06/23 * C-Reactive Protein 10/06/23 * Lactate Dehydrogenase 12/14/23 * Thyroid Stimulating Hormone 12/14/23 * Free T4 12/14/23 * Anti-Centromere Ab by IFA(RDL) 10/06/23 * Rheumatoid Factor 10/06/23 * Complete Blood Count 12/14/23 * Free T3 12/14/23 * Lipid Profile 11/27/23 * HIV 1/2 Ab 10/06/23 * Complete Metabolic Panel 12/14/23 * Complete Metabolic Panel 11/27/23 Radiology* CT Abdomen/Pelvis w/Oral Contrast Only 03/09/23 * CT Thorax w/o Contrast 03/09/23 [facility] Evaluation + Plan note Future Appointments Appointment Date:12/06/2023 11:00:00 AM Scheduled Provider: Location:[facility] Appointment Type:CV OV CHF Appointment Date:12/14/2023 09:15:00 AM Scheduled Provider: Location:[facility] Appointment Type:INF/OSP Labwork Appointment Date:12/14/2023 10:00:00 AM Scheduled Provider:BHAVIK TRIANA MD Location:[facility] Appointment Type:[facility] OV Follow Up w/Active Treatment Appointment Date:12/14/2023 10:30:00 AM Scheduled Provider: Location:[facility] Appointment Type:INF Chemo: Infusion 120 min (2 hours) Appointment Date:12/14/2023 11:00:00 AM Scheduled Provider:LIAN FUNG MD Location:[facility] Appointment Type:PALL OV Follow Up Appointment Date:12/27/2023 02:15:00 PM Scheduled Provider: Location:[facility] Appointment Type:PC Nurse Protime Future Scheduled Tests Laboratory* Cortisol Level 12/14/23 * Antinuclear Antibody Screen, Serum 10/06/23 * C-Reactive Protein 10/06/23 * Lactate Dehydrogenase 12/14/23 * Thyroid Stimulating Hormone 12/14/23 * Free T4 12/14/23 * Anti-Centromere Ab by IFA(RDL) 10/06/23 * Rheumatoid Factor 10/06/23 * Complete Blood Count 12/14/23 * Free T3 12/14/23 * Lipid Profile 11/27/23 * HIV 1/2 Ab 10/06/23 * Complete Metabolic Panel 12/14/23 * Complete Metabolic Panel 11/27/23 Radiology* CT Abdomen/Pelvis w/Oral Contrast Only 03/09/23 * CT Thorax w/o Contrast 03/09/23 [facility] Evaluation + Plan note Future Appointments Appointment Date:12/27/2023 10:45:00 AM Scheduled Provider: Location:[facility] Appointment Type:CV OV CHF Appointment Date:12/27/2023 02:15:00 PM Scheduled Provider: Location:[facility] Appointment Type:PC Nurse Protime Appointment Date:01/15/2024 10:00:00 AM Scheduled Provider: Location:[facility] Appointment Type:yyCT ABD and Pelvis w/o Contrast Appointment Date:01/15/2024 10:30:00 AM Scheduled Provider: Location:[facility] Appointment Type:yyCT Chest w/o Contrast Appointment Date:01/25/2024 09:15:00 AM Scheduled Provider: Location:[facility] Appointment Type:INF/OSP Labwork Appointment Date:01/25/2024 09:30:00 AM Scheduled Provider:LIAN FUNG MD Location:[facility] Appointment Type:PALL OV Follow Up Appointment Date:01/25/2024 10:00:00 AM Scheduled Provider:BHAVIK TRIANA MD Location:[facility] Appointment Type:[facility] OV Follow Up w/Active Treatment Appointment Date:01/25/2024 10:30:00 AM Scheduled Provider: Location:[facility] Appointment Type:INF Chemo: Infusion 120 min (2 hours) Future Scheduled Tests Laboratory* Cortisol Level 01/18/24 * Antinuclear Antibody Screen, Serum 10/06/23 * C-Reactive Protein 10/06/23 * Lactate Dehydrogenase 01/18/24 * Thyroid Stimulating Hormone 01/18/24 * Free T4 01/18/24 * Anti-Centromere Ab by IFA(RDL) 10/06/23 * Rheumatoid Factor 10/06/23 * Complete Blood Count 01/18/24 * Free T3 01/18/24 * Lipid Profile 11/27/23 * HIV 1/2 Ab 10/06/23 * Complete Metabolic Panel 01/18/24 * Complete Metabolic Panel 11/27/23 Radiology* CT Abdomen/Pelvis w/Oral Contrast Only 03/09/23 * CT Thorax w/o Contrast 03/09/23 * CT Thorax w/o Contrast 01/11/24 * CT Thorax w/o Contrast 01/15/24 * CT Abdomen and Pelvis w/o contrast 01/11/24 * CT Abdomen and Pelvis w/o contrast 01/15/24 [facility] Evaluation + Plan note Future Appointments Appointment Date:01/22/2024 11:15:00 AM Scheduled Provider: Location:[facility] Appointment Type:CV OV Appointment Date:01/24/2024 02:15:00 PM Scheduled Provider: Location:[facility] Appointment Type:PC Nurse Protime Appointment Date:01/25/2024 08:00:00 AM Scheduled Provider:PROSPER MANJARREZ DO Location:[facility] Appointment Type:PC OV Appointment Date:01/25/2024 09:15:00 AM Scheduled Provider: Location:[facility] Appointment Type:INF/OSP Labwork Appointment Date:01/25/2024 10:00:00 AM Scheduled Provider:BHAVIK TRIANA MD Location:[facility] Appointment Type:[facility] OV Follow Up w/Active Treatment Appointment Date:01/25/2024 10:30:00 AM Scheduled Provider: Location:[facility] Appointment Type:INF Chemo: Infusion 120 min (2 hours) Future Scheduled Tests Laboratory* Cortisol Level 01/18/24 * Antinuclear Antibody Screen, Serum 10/06/23 * C-Reactive Protein 10/06/23 * Lactate Dehydrogenase 01/18/24 * Thyroid Stimulating Hormone 01/18/24 * Free T4 01/18/24 * Anti-Centromere Ab by IFA(RDL) 10/06/23 * Rheumatoid Factor 10/06/23 * Complete Blood Count 01/18/24 * Free T3 01/18/24 * Lipid Profile 11/27/23 * HIV 1/2 Ab 10/06/23 * Complete Metabolic Panel 01/18/24 * Complete Metabolic Panel 11/27/23 Radiology* CT Abdomen/Pelvis w/Oral Contrast Only 03/09/23 * CT Thorax w/o Contrast 03/09/23 * CT Thorax w/o Contrast 01/11/24 * CT Abdomen and Pelvis w/o contrast 01/11/24 [facility] Evaluation + Plan note Future Appointments Appointment Date:10/31/2023 09:00:00 AM Scheduled Provider: Location:[facility] Appointment Type:CV Procedure - Heart Lab/Hybrid OR Appointment Date:11/01/2023 02:15:00 PM Scheduled Provider: Location:[facility] Appointment Type:PC Nurse Protime Appointment Date:11/16/2023 09:45:00 AM Scheduled Provider: Location:[facility] Appointment Type:INF/OSP Labwork Appointment Date:11/16/2023 10:30:00 AM Scheduled Provider:EZEQUIEL LEAL Location:[facility] Appointment Type:[facility] OV Follow Up w/Active Treatment Appointment Date:11/16/2023 11:00:00 AM Scheduled Provider: Location:[facility] Appointment Type:INF Chemo: Infusion 120 min (2 hours) Appointment Date:11/16/2023 01:30:00 PM Scheduled Provider:REILLY COLEMAN Location:[facility] Appointment Type:PALL OV Follow Up Appointment Date:11/17/2023 10:00:00 AM Scheduled Provider: Location:[facility] Appointment Type:CV OV [facility] Appointment Date:11/30/2023 03:30:00 PM Scheduled Provider:PROSPER MANJARREZ DO Location:[facility] Appointment Type:PC Wellness Annual Future Scheduled Tests Laboratory* Antinuclear Antibody Screen, Serum 10/06/23 * C-Reactive Protein 10/06/23 * Lactate Dehydrogenase 11/16/23 * Thyroid Stimulating Hormone 11/16/23 * Free T4 11/16/23 * Anti-Centromere Ab by IFA(RDL) 10/06/23 * Rheumatoid Factor 10/06/23 * Complete Blood Count 11/16/23 * Free T3 11/16/23 * Lipid Profile 11/27/23 * HIV 1/2 Ab 10/06/23 * Complete Metabolic Panel 11/16/23 * Complete Metabolic Panel 11/27/23 Radiology* CT Abdomen/Pelvis w/Oral Contrast Only 03/09/23 * CT Thorax w/o Contrast 03/09/23 [facility] Evaluation + Plan note Future Appointments Appointment Date:11/01/2023 02:15:00 PM Scheduled Provider: Location:[facility] Appointment Type:PC Nurse Protime Appointment Date:11/16/2023 09:45:00 AM Scheduled Provider: Location:[facility] Appointment Type:INF/OSP Labwork Appointment Date:11/16/2023 10:30:00 AM Scheduled Provider:EZEQUIEL LEAL Location:[facility] Appointment Type:[facility] OV Follow Up w/Active Treatment Appointment Date:11/16/2023 11:00:00 AM Scheduled Provider: Location:[facility] Appointment Type:INF Chemo: Infusion 120 min (2 hours) Appointment Date:11/16/2023 01:30:00 PM Scheduled Provider:REILLY COLEMAN Location:[facility] Appointment Type:PALL OV Follow Up Appointment Date:11/17/2023 10:00:00 AM Scheduled Provider: Location:[facility] Appointment Type:CV OV [facility] Appointment Date:11/30/2023 03:30:00 PM Scheduled Provider:PROSPER MANJARREZ DO Location:[facility] Appointment Type:PC Wellness Annual Future Scheduled Tests Laboratory* Basic Metabolic Panel 10/31/23 * Antinuclear Antibody Screen, Serum 10/06/23 * C-Reactive Protein 10/06/23 * Lactate Dehydrogenase 11/16/23 * Thyroid Stimulating Hormone 11/16/23 * Free T4 11/16/23 * Anti-Centromere Ab by IFA(RDL) 10/06/23 * Rheumatoid Factor 10/06/23 * Complete Blood Count 11/16/23 * Free T3 11/16/23 * Lipid Profile 11/27/23 * HIV 1/2 Ab 10/06/23 * Complete Metabolic Panel 11/16/23 * Complete Metabolic Panel 11/27/23 Radiology* CT Abdomen/Pelvis w/Oral Contrast Only 03/09/23 * CT Thorax w/o Contrast 03/09/23 [facility] Evaluation + Plan note Future Appointments Appointment Date:01/31/2024 02:20:00 PM Scheduled Provider:PROSPER MANJARREZ DO Location:[facility] Appointment Type:PC OV Appointment Date:02/01/2024 01:15:00 PM Scheduled Provider:BHAVIK TRIANA MD Location:[facility] Appointment Type:[facility] OV Follow Up w/Active Treatment Appointment Date:02/01/2024 02:00:00 PM Scheduled Provider:LIAN FUNG MD Location:[facility] Appointment Type:PALL OV Follow Up Future Scheduled Tests Laboratory* Cortisol Level 01/18/24 * Antinuclear Antibody Screen, Serum 10/06/23 * C-Reactive Protein 10/06/23 * Lactate Dehydrogenase 01/18/24 * Thyroid Stimulating Hormone 01/18/24 * Free T4 01/18/24 * Anti-Centromere Ab by IFA(RDL) 10/06/23 * Rheumatoid Factor 10/06/23 * Complete Blood Count 01/18/24 * Free T3 01/18/24 * Lipid Profile 11/27/23 * HIV 1/2 Ab 10/06/23 * Complete Metabolic Panel 01/18/24 * Complete Metabolic Panel 11/27/23 Radiology* CT Abdomen/Pelvis w/Oral Contrast Only 03/09/23 * CT Thorax w/o Contrast 03/09/23 * CT Thorax w/o Contrast 01/11/24 * CT Abdomen and Pelvis w/o contrast 01/11/24 [facility] Evaluation + Plan note Future Appointments Appointment Date:02/05/2024 12:30:00 PM Scheduled Provider: Location:[facility] Appointment Type:INF/OSP Labwork Appointment Date:02/05/2024 01:15:00 PM Scheduled Provider:BHAVIK TRIANA MD Location:[facility] Appointment Type:[facility] OV Follow Up w/Active Treatment Appointment Date:02/05/2024 01:45:00 PM Scheduled Provider: Location:[facility] Appointment Type:INF Chemo: Infusion 120 min (2 hours) Appointment Date:02/28/2024 10:45:00 AM Scheduled Provider: Location:[facility] Appointment Type:PC Nurse Appointment Date:03/14/2024 11:30:00 AM Scheduled Provider:LIAN FUNG MD Location:[facility] Appointment Type:PALL OV Follow Up Future Scheduled Tests Laboratory* Cortisol Level 02/05/24 * Antinuclear Antibody Screen, Serum 10/06/23 * C-Reactive Protein 10/06/23 * Lactate Dehydrogenase 02/05/24 * Thyroid Stimulating Hormone 02/05/24 * Free T4 02/05/24 * Anti-Centromere Ab by IFA(RDL) 10/06/23 * Rheumatoid Factor 10/06/23 * Complete Blood Count 02/05/24 * Free T3 02/05/24 * Lipid Profile 11/27/23 * HIV 1/2 Ab 10/06/23 * Complete Metabolic Panel 02/05/24 * Complete Metabolic Panel 11/27/23 Radiology* CT Abdomen/Pelvis w/Oral Contrast Only 03/09/23 * CT Thorax w/o Contrast 03/09/23 * CT Thorax w/o Contrast 01/11/24 * CT Abdomen and Pelvis w/o contrast 01/11/24 [facility] Evaluation + Plan note Future Appointments Appointment Date:02/28/2024 10:45:00 AM Scheduled Provider: Location:[facility] Appointment Type:PC Nurse Appointment Date:03/04/2024 12:15:00 PM Scheduled Provider: Location:[facility] Appointment Type:INF/OSP Labwork Appointment Date:03/04/2024 01:00:00 PM Scheduled Provider:EZEQUIEL LEAL Location:[facility] Appointment Type:HEM ONC OV Follow Up w/Active Treatment Appointment Date:03/04/2024 01:30:00 PM Scheduled Provider: Location:[facility] Appointment Type:INF Chemo: Infusion 120 min (2 hours) Appointment Date:03/14/2024 11:30:00 AM Scheduled Provider:LIAN FUNG MD Location:[facility] Appointment Type:PALL OV Follow Up Future Scheduled Tests Laboratory* Cortisol Level 03/04/24 * Antinuclear Antibody Screen, Serum 10/06/23 * C-Reactive Protein 10/06/23 * Lactate Dehydrogenase 03/04/24 * Thyroid Stimulating Hormone 03/04/24 * Free T4 03/04/24 * Anti-Centromere Ab by IFA(RDL) 10/06/23 * Rheumatoid Factor 10/06/23 * Complete Blood Count 03/04/24 * Free T3 03/04/24 * Lipid Profile 11/27/23 * HIV 1/2 Ab 10/06/23 * Complete Metabolic Panel 03/04/24 * Complete Metabolic Panel 11/27/23 Radiology* CT Abdomen/Pelvis w/Oral Contrast Only 03/09/23 * CT Thorax w/o Contrast 03/09/23 * CT Thorax w/o Contrast 01/11/24 * CT Abdomen and Pelvis w/o contrast 01/11/24 [facility] Evaluation + Plan note Future Appointments Appointment Date:03/27/2024 10:45:00 AM Scheduled Provider: Location:[facility] Appointment Type:PC Nurse Appointment Date:04/02/2024 12:15:00 PM Scheduled Provider: Location:[facility] Appointment Type:INF/OSP Labwork Appointment Date:04/02/2024 01:00:00 PM Scheduled Provider:BHAVIK TRIANA MD Location:[facility] Appointment Type:[facility] OV Follow Up w/Active Treatment Appointment Date:04/02/2024 01:30:00 PM Scheduled Provider: Location:[facility] Appointment Type:INF Chemo: Infusion 120 min (2 hours) Appointment Date:05/29/2024 02:00:00 PM Scheduled Provider:PROSPER MANJARREZ DO Location:[facility] Appointment Type:PC OV Future Scheduled Tests Laboratory* Cortisol Level 04/01/24 * Basic Metabolic Panel 02/19/24 * Antinuclear Antibody Screen, Serum 10/06/23 * C-Reactive Protein 10/06/23 * Lactate Dehydrogenase 04/01/24 * Urinalysis w/ C&S if Indicated 03/04/24 * Thyroid Stimulating Hormone 04/01/24 * Free T4 04/01/24 * Anti-Centromere Ab by IFA(RDL) 10/06/23 * Rheumatoid Factor 10/06/23 * Complete Blood Count 04/01/24 * Complete Blood Count 02/19/24 * Free T3 04/01/24 * Lipid Profile 11/27/23 * HIV 1/2 Ab 10/06/23 * Complete Metabolic Panel 04/01/24 * Complete Metabolic Panel 11/27/23 Radiology* CT Abdomen/Pelvis w/Oral Contrast Only 03/09/23 * CT Femur w/o Contrast Right 03/04/24 * CT Thorax w/o Contrast 03/09/23 * CT Thorax w/o Contrast 01/11/24 * CT Abdomen and Pelvis w/o contrast 01/11/24 [facility] Evaluation + Plan note Future Appointments Appointment Date:04/02/2024 12:15:00 PM Scheduled Provider: Location:[facility] Appointment Type:INF/OSP Labwork Appointment Date:04/02/2024 01:00:00 PM Scheduled Provider:BHAVIK TRIANA MD Location:[facility] Appointment Type:[facility] OV Follow Up w/Active Treatment Appointment Date:04/02/2024 01:30:00 PM Scheduled Provider: Location:[facility] Appointment Type:INF Chemo: Infusion 120 min (2 hours) Appointment Date:04/02/2024 01:30:00 PM Scheduled Provider:LIAN FUNG MD Location:[facility] Appointment Type:PALL OV Follow Up Appointment Date:04/10/2024 10:30:00 AM Scheduled Provider: Location:[facility] Appointment Type:CV OV Appointment Date:04/24/2024 02:15:00 PM Scheduled Provider: Location:[facility] Appointment Type:PC Nurse Protime Appointment Date:05/29/2024 02:00:00 PM Scheduled Provider:PROPSER MANJARREZ DO Location:[facility] Appointment Type:PC OV Future Scheduled Tests Laboratory* Cortisol Level 04/01/24 * Basic Metabolic Panel 02/19/24 * Antinuclear Antibody Screen, Serum 10/06/23 * C-Reactive Protein 10/06/23 * Lactate Dehydrogenase 04/01/24 * Thyroid Stimulating Hormone 04/01/24 * Free T4 04/01/24 * Anti-Centromere Ab by IFA(RDL) 10/06/23 * Rheumatoid Factor 10/06/23 * Complete Blood Count 04/01/24 * Complete Blood Count 02/19/24 * Free T3 04/01/24 * Lipid Profile 11/27/23 * HIV 1/2 Ab 10/06/23 * Complete Metabolic Panel 04/01/24 * Complete Metabolic Panel 11/27/23 Radiology* CT Femur w/o Contrast Right 03/04/24 * CT Thorax w/o Contrast 01/11/24 * CT Abdomen and Pelvis w/o contrast 01/11/24 [facility] Evaluation + Plan note Future Appointments Appointment Date:04/04/2024 02:00:00 PM Scheduled Provider:AISHWARYA HAMLIN MD Location:[facility] Appointment Type:GS OV Appointment Date:04/10/2024 10:30:00 AM Scheduled Provider: Location:[facility] Appointment Type:CV OV Appointment Date:04/24/2024 02:15:00 PM Scheduled Provider: Location:[facility] Appointment Type:PC Nurse Protime Appointment Date:04/30/2024 12:45:00 PM Scheduled Provider: Location:[facility] Appointment Type:INF/OSP Labwork Appointment Date:04/30/2024 01:30:00 PM Scheduled Provider:EZEQUIEL LEAL Location:[facility] Appointment Type:[facility] OV Follow Up w/EKG MONITOR Active Treat Appointment Date:04/30/2024 02:00:00 PM Scheduled Provider: Location:[facility] Appointment Type:INF Chemo: Infusion 120 min (2 hours) Appointment Date:05/28/2024 01:00:00 PM Scheduled Provider:LIAN FUNG MD Location:[facility] Appointment Type:PALL OV Follow Up Appointment Date:05/29/2024 02:00:00 PM Scheduled Provider:PROSPER MANJARREZ DO Location:[facility] Appointment Type:PC OV Diagnostic Tests Pending * Urine Culture 04/02/24 Future Scheduled Tests Laboratory* Cortisol Level 04/30/24 * Basic Metabolic Panel 02/19/24 * Antinuclear Antibody Screen, Serum 10/06/23 * C-Reactive Protein 10/06/23 * Lactate Dehydrogenase 04/30/24 * Thyroid Stimulating Hormone 04/30/24 * Free T4 04/30/24 * Anti-Centromere Ab by IFA(RDL) 10/06/23 * Rheumatoid Factor 10/06/23 * Complete Blood Count 04/30/24 * Complete Blood Count 02/19/24 * Free T3 04/30/24 * Lipid Profile 11/27/23 * HIV 1/2 Ab 10/06/23 * Complete Metabolic Panel 04/30/24 * Complete Metabolic Panel 11/27/23 Radiology* CT Femur w/o Contrast Right 03/04/24 * CT Thorax w/o Contrast 01/11/24 * CT Abdomen and Pelvis w/o contrast 01/11/24 [facility] Evaluation + Plan note Future Appointments Appointment Date:05/21/2024 01:15:00 PM Scheduled Provider: Location:[facility] Appointment Type:yyCT ABD and Pelvis w/o Contrast Appointment Date:05/21/2024 01:45:00 PM Scheduled Provider: Location:[facility] Appointment Type:yyCT Chest w/o Contrast Appointment Date:05/22/2024 02:15:00 PM Scheduled Provider: Location:[facility] Appointment Type:PC Nurse Protime Appointment Date:05/28/2024 09:30:00 AM Scheduled Provider: Location:[facility] Appointment Type:INF/OSP Labwork Appointment Date:05/28/2024 10:15:00 AM Scheduled Provider:BHAVIK TRIANA MD Location:[facility] Appointment Type:[facility] OV Follow Up w/ Active Treatme Appointment Date:05/28/2024 10:45:00 AM Scheduled Provider: Location:[facility] Appointment Type:INF Chemo: Infusion 120 min (2 hours) Appointment Date:05/28/2024 01:00:00 PM Scheduled Provider:LIAN FUNG MD Location:[facility] Appointment Type:PALL OV Follow Up Appointment Date:05/29/2024 02:00:00 PM Scheduled Provider:PROSPER MANJARREZ DO Location:[facility] Appointment Type:PC OV Future Scheduled Tests Laboratory* Cortisol Level 05/28/24 * Basic Metabolic Panel 02/19/24 * Antinuclear Antibody Screen, Serum 10/06/23 * C-Reactive Protein 10/06/23 * Lactate Dehydrogenase 05/28/24 * Thyroid Stimulating Hormone 05/28/24 * Free T4 05/28/24 * Anti-Centromere Ab by IFA(RDL) 10/06/23 * Rheumatoid Factor 10/06/23 * Complete Blood Count 02/19/24 * Complete Blood Count 05/28/24 * Free T3 05/28/24 * Lipid Profile 11/27/23 * HIV 1/2 Ab 10/06/23 * Complete Metabolic Panel 11/27/23 * Complete Metabolic Panel 05/28/24 Radiology* CT Femur w/o Contrast Right 03/04/24 * CT Thorax w/o Contrast 01/11/24 * CT Thorax w/o Contrast 05/21/24 * CT Abdomen and Pelvis w/o contrast 01/11/24 * CT Abdomen and Pelvis w/o contrast 05/21/24 [facility] Evaluation + Plan note Future Appointments Appointment Date:06/13/2024 02:30:00 PM Scheduled Provider:PROSPER MANJARREZ DO Location:[facility] Appointment Type:PC Wellness Annual Appointment Date:06/26/2024 01:00:00 PM Scheduled Provider: Location:[facility] Appointment Type:yyCT Abdomen and Pelvis w/ Contrast 3 Appointment Date:06/26/2024 01:30:00 PM Scheduled Provider: Location:[facility] Appointment Type:yyCT Chest w/ Contrast 3 Appointment Date:07/03/2024 09:45:00 AM Scheduled Provider: Location:[facility] Appointment Type:INF/OSP Labwork Appointment Date:07/03/2024 10:30:00 AM Scheduled Provider:BHAVIK TRIANA MD Location:[facility] Appointment Type:[facility] OV Follow Up w/ Active Treatme Appointment Date:07/03/2024 11:00:00 AM Scheduled Provider:LIAN FUNG MD Location:[facility] Appointment Type:PALL OV Follow Up Appointment Date:07/03/2024 11:00:00 AM Scheduled Provider: Location:[facility] Appointment Type:INF Chemo: Infusion 120 min (2 hours) Future Scheduled Tests Laboratory* Cortisol Level 07/03/24 * Basic Metabolic Panel 02/19/24 * Antinuclear Antibody Screen, Serum 10/06/23 * C-Reactive Protein 10/06/23 * Lactate Dehydrogenase 07/03/24 * Thyroid Stimulating Hormone 07/03/24 * Free T4 07/03/24 * Anti-Centromere Ab by IFA(RDL) 10/06/23 * Rheumatoid Factor 10/06/23 * Complete Blood Count 05/15/24 * Complete Blood Count 07/03/24 * Complete Blood Count 02/19/24 * Free T3 07/03/24 * Lipid Profile 05/15/24 * Lipid Profile 11/27/23 * HIV 1/2 Ab 10/06/23 * Complete Metabolic Panel 05/15/24 * Complete Metabolic Panel 07/03/24 * Complete Metabolic Panel 11/27/23 Radiology* CT Femur w/o Contrast Right 03/04/24 * CT Thorax w/ Contrast 06/26/24 * CT Thorax w/o Contrast 01/11/24 * CT Thorax w/o Contrast 05/21/24 * CT Abdomen and Pelvis w/ contrast 06/26/24 * CT Abdomen and Pelvis w/o contrast 01/11/24 * CT Abdomen and Pelvis w/o contrast 05/21/24 [facility] Evaluation + Plan note Future Appointments Appointment Date:07/03/2024 09:45:00 AM Scheduled Provider: Location:[facility] Appointment Type:INF/OSP Labwork Appointment Date:07/03/2024 10:30:00 AM Scheduled Provider:BHAVIK TRIANA MD Location:[facility] Appointment Type:[facility] OV Follow Up w/ Active Treatme Appointment Date:07/03/2024 11:00:00 AM Scheduled Provider:LIAN FUNG MD Location:[facility] Appointment Type:PALL OV Follow Up Appointment Date:07/03/2024 11:00:00 AM Scheduled Provider: Location:[facility] Appointment Type:INF Chemo: Infusion 120 min (2 hours) Future Scheduled Tests Laboratory* Cortisol Level 07/03/24 * Basic Metabolic Panel 02/19/24 * Antinuclear Antibody Screen, Serum 10/06/23 * C-Reactive Protein 10/06/23 * Lactate Dehydrogenase 07/03/24 * Thyroid Stimulating Hormone 07/03/24 * Free T4 07/03/24 * Anti-Centromere Ab by IFA(RDL) 10/06/23 * Rheumatoid Factor 10/06/23 * Complete Blood Count 05/15/24 * Complete Blood Count 07/03/24 * Complete Blood Count 02/19/24 * Free T3 07/03/24 * Lipid Profile 05/15/24 * Lipid Profile 11/27/23 * HIV 1/2 Ab 10/06/23 * Complete Metabolic Panel 05/15/24 * Complete Metabolic Panel 07/03/24 * Complete Metabolic Panel 11/27/23 Radiology* CT Femur w/o Contrast Right 03/04/24 * CT Thorax w/o Contrast 01/11/24 * CT Thorax w/o Contrast 05/21/24 * CT Abdomen and Pelvis w/o contrast 01/11/24 * CT Abdomen and Pelvis w/o contrast 05/21/24 [facility] Evaluation + Plan note Future Appointments Appointment Date:07/23/2024 11:00:00 AM Scheduled Provider: Location:[facility] Appointment Type:Echo - Echocardiogram Adult Appointment Date:07/31/2024 09:30:00 AM Scheduled Provider: Location:[facility] Appointment Type:INF/OSP Labwork Appointment Date:07/31/2024 10:15:00 AM Scheduled Provider:BHAVIK TRIANA MD Location:[facility] Appointment Type:[facility] OV Follow Up w/ Active Treatme Appointment Date:07/31/2024 10:45:00 AM Scheduled Provider: Location:[facility] Appointment Type:INF Chemo: Infusion 120 min (2 hours) Appointment Date:08/28/2024 11:00:00 AM Scheduled Provider:LIAN FUNG MD Location:[facility] Appointment Type:PALL OV Follow Up Future Scheduled Tests Laboratory* Cortisol Level 07/31/24 * Basic Metabolic Panel 02/19/24 * Antinuclear Antibody Screen, Serum 10/06/23 * C-Reactive Protein 10/06/23 * Lactate Dehydrogenase 07/31/24 * Thyroid Stimulating Hormone 07/31/24 * Free T4 07/31/24 * Anti-Centromere Ab by IFA(RDL) 10/06/23 * Rheumatoid Factor 10/06/23 * Complete Blood Count 05/15/24 * Complete Blood Count 07/31/24 * Complete Blood Count 02/19/24 * Free T3 07/31/24 * Lipid Profile 05/15/24 * Lipid Profile 11/27/23 * HIV 1/2 Ab 10/06/23 * Complete Metabolic Panel 05/15/24 * Complete Metabolic Panel 07/31/24 * Complete Metabolic Panel 11/27/23 Radiology* CT Femur w/o Contrast Right 03/04/24 * CT Thorax w/o Contrast 01/11/24 * CT Thorax w/o Contrast 05/21/24 * CT Abdomen and Pelvis w/o contrast 01/11/24 * CT Abdomen and Pelvis w/o contrast 05/21/24 [facility] Evaluation + Plan note Future Appointments Appointment Date:07/31/2024 09:30:00 AM Scheduled Provider: Location:[facility] Appointment Type:INF/OSP Labwork Appointment Date:07/31/2024 10:15:00 AM Scheduled Provider:BHAVIK TRIANA MD Location:[facility] Appointment Type:[facility] OV Follow Up w/ Active Treatme Appointment Date:07/31/2024 10:45:00 AM Scheduled Provider: Location:[facility] Appointment Type:INF Chemo: Infusion 120 min (2 hours) Appointment Date:08/05/2024 02:10:00 PM Scheduled Provider:AISHWARYA HAMLIN MD Location:[facility] Appointment Type:GS OV Post Op Appointment Date:08/28/2024 11:00:00 AM Scheduled Provider:LIAN FUNG MD Location:[facility] Appointment Type:PALL OV Follow Up Future Scheduled Tests Laboratory* Cortisol Level 07/31/24 * Basic Metabolic Panel 02/19/24 * Antinuclear Antibody Screen, Serum 10/06/23 * C-Reactive Protein 10/06/23 * Lactate Dehydrogenase 07/31/24 * Thyroid Stimulating Hormone 07/31/24 * Free T4 07/31/24 * Anti-Centromere Ab by IFA(RDL) 10/06/23 * Rheumatoid Factor 10/06/23 * Complete Blood Count 05/15/24 * Complete Blood Count 07/31/24 * Complete Blood Count 02/19/24 * Free T3 07/31/24 * Lipid Profile 05/15/24 * Lipid Profile 11/27/23 * HIV 1/2 Ab 10/06/23 * Complete Metabolic Panel 05/15/24 * Complete Metabolic Panel 07/31/24 * Complete Metabolic Panel 11/27/23 Radiology* CT Femur w/o Contrast Right 03/04/24 * CT Thorax w/o Contrast 01/11/24 * CT Thorax w/o Contrast 05/21/24 * CT Abdomen and Pelvis w/o contrast 01/11/24 * CT Abdomen and Pelvis w/o contrast 05/21/24 [facility] Evaluation + Plan note Future Appointments Appointment Date:08/07/2024 09:30:00 AM Scheduled Provider: Location:[facility] Appointment Type:INF/OSP Labwork Appointment Date:08/07/2024 10:15:00 AM Scheduled Provider:BHAVIK TRIANA MD Location:[facility] Appointment Type:[facility] OV Follow Up w/ Active Treatme Appointment Date:08/07/2024 10:30:00 AM Scheduled Provider: Location:[facility] Appointment Type:INF Chemo: Infusion 120 min (2 hours) Appointment Date:08/08/2024 02:00:00 PM Scheduled Provider:AISHWARYA HAMLIN MD Location:[facility] Appointment Type:GS OV Post Op Appointment Date:08/28/2024 11:00:00 AM Scheduled Provider:LIAN FUNG MD Location:[facility] Appointment Type:PALL OV Follow Up Future Scheduled Tests Laboratory* Cortisol Level 07/31/24 * Basic Metabolic Panel 02/19/24 * Antinuclear Antibody Screen, Serum 10/06/23 * C-Reactive Protein 10/06/23 * Lactate Dehydrogenase 07/31/24 * Thyroid Stimulating Hormone 07/31/24 * Free T4 07/31/24 * Anti-Centromere Ab by IFA(RDL) 10/06/23 * Rheumatoid Factor 10/06/23 * Complete Blood Count 05/15/24 * Complete Blood Count 07/31/24 * Complete Blood Count 02/19/24 * Free T3 07/31/24 * Lipid Profile 05/15/24 * Lipid Profile 11/27/23 * HIV 1/2 Ab 10/06/23 * Complete Metabolic Panel 05/15/24 * Complete Metabolic Panel 07/31/24 * Complete Metabolic Panel 11/27/23 Radiology* CT Femur w/o Contrast Right 03/04/24 * CT Thorax w/o Contrast 01/11/24 * CT Thorax w/o Contrast 05/21/24 * CT Abdomen and Pelvis w/o contrast 01/11/24 * CT Abdomen and Pelvis w/o contrast 05/21/24 [facility] Evaluation + Plan note Future Appointments Appointment Date:08/07/2024 09:30:00 AM Scheduled Provider: Location:[facility] Appointment Type:INF/OSP Labwork Appointment Date:08/07/2024 10:15:00 AM Scheduled Provider:BHAVIK TRIANA MD Location:[facility] Appointment Type:[facility] OV Follow Up w/MD Active Treatme Appointment Date:08/07/2024 10:30:00 AM Scheduled Provider: Location:[facility] Appointment Type:INF Chemo: Infusion 120 min (2 hours) Appointment Date:08/08/2024 02:00:00 PM Scheduled Provider:AISHWARYA HAMLIN MD Location:[facility] Appointment Type:GS OV Post Op Appointment Date:08/09/2024 11:00:00 AM Scheduled Provider:PROSPER MANJARREZ DO Location:[facility] Appointment Type:PC OV TCM 30 Appointment Date:08/28/2024 11:00:00 AM Scheduled Provider:LIAN FUNG MD Location:[facility] Appointment Type:PALL OV Follow Up Future Scheduled Tests Laboratory* Basic Metabolic Panel 02/19/24 * Antinuclear Antibody Screen, Serum 10/06/23 * C-Reactive Protein 10/06/23 * Anti-Centromere Ab by IFA(RDL) 10/06/23 * Rheumatoid Factor 10/06/23 * Complete Blood Count 05/15/24 * Complete Blood Count 08/06/24 * Complete Blood Count 02/19/24 * Lipid Profile 05/15/24 * Lipid Profile 11/27/23 * HIV 1/2 Ab 10/06/23 * Complete Metabolic Panel 05/15/24 * Complete Metabolic Panel 11/27/23 Radiology* CT Femur w/o Contrast Right 03/04/24 * CT Thorax w/o Contrast 01/11/24 * CT Thorax w/o Contrast 05/21/24 * CT Abdomen and Pelvis w/o contrast 01/11/24 * CT Abdomen and Pelvis w/o contrast 05/21/24 [facility] Evaluation + Plan note Future Appointments Appointment Date:08/08/2024 02:00:00 PM Scheduled Provider:AISHWARYA HAMLIN MD Location:[facility] Appointment Type:GS OV Post Op Appointment Date:08/09/2024 11:00:00 AM Scheduled Provider:PROSPER MANJARREZ DO Location:[facility] Appointment Type:PC OV TCM 30 Appointment Date:08/28/2024 11:00:00 AM Scheduled Provider:LIAN FUNG MD Location:[facility] Appointment Type:PALL OV Follow Up Appointment Date:09/17/2024 09:45:00 AM Scheduled Provider: Location:[facility] Appointment Type:INF/OSP Labwork Appointment Date:09/17/2024 10:30:00 AM Scheduled Provider:EZEQUIEL LEAL Location:[facility] Appointment Type:[facility] OV Follow Up w/EKG MONITOR Active Treat Appointment Date:09/17/2024 11:00:00 AM Scheduled Provider: Location:[facility] Appointment Type:INF Chemo: Infusion 120 min (2 hours) Future Scheduled Tests Laboratory* Cortisol Level 09/04/24 * Basic Metabolic Panel 02/19/24 * Antinuclear Antibody Screen, Serum 10/06/23 * C-Reactive Protein 10/06/23 * Thyroid Stimulating Hormone 09/04/24 * Free T4 09/04/24 * Anti-Centromere Ab by IFA(RDL) 10/06/23 * Rheumatoid Factor 10/06/23 * Complete Blood Count 09/04/24 * Complete Blood Count 05/15/24 * Complete Blood Count 08/06/24 * Complete Blood Count 02/19/24 * Free T3 09/04/24 * Lipid Profile 05/15/24 * Lipid Profile 11/27/23 * HIV 1/2 Ab 10/06/23 * Complete Metabolic Panel 09/04/24 * Complete Metabolic Panel 05/15/24 * Complete Metabolic Panel 11/27/23 Radiology* CT Femur w/o Contrast Right 03/04/24 * CT Thorax w/o Contrast 01/11/24 * CT Thorax w/o Contrast 05/21/24 * CT Abdomen and Pelvis w/o contrast 01/11/24 * CT Abdomen and Pelvis w/o contrast 05/21/24 [facility] Evaluation + Plan note Future Appointments Appointment Date:10/14/2024 02:15:00 PM Scheduled Provider: Location:[facility] Appointment Type:PC Nurse Protime Appointment Date:10/15/2024 08:30:00 AM Scheduled Provider: Location:[facility] Appointment Type:INF/OSP Labwork Appointment Date:10/15/2024 09:15:00 AM Scheduled Provider:BHAVIK TRIANA MD Location:[facility] Appointment Type:[facility] OV Follow Up w/ Active Treatme Appointment Date:10/15/2024 09:45:00 AM Scheduled Provider: Location:[facility] Appointment Type:INF Chemo: Infusion 120 min (2 hours) Appointment Date:10/15/2024 10:30:00 AM Scheduled Provider:LAIN FUNG MD Location:[facility] Appointment Type:PALL OV Follow Up Appointment Date:10/16/2024 02:00:00 PM Scheduled Provider:PROSPER MANJARREZ DO Location:[facility] Appointment Type:PC Acute Appointment Date:10/25/2024 02:00:00 PM Scheduled Provider:PROSPER MANJARREZ DO Location:[facility] Appointment Type:PC OV Future Scheduled Tests Laboratory* Cortisol Level 10/15/24 * Basic Metabolic Panel 02/19/24 * Lactate Dehydrogenase 10/15/24 * Thyroid Stimulating Hormone 10/15/24 * Free T4 10/15/24 * Complete Blood Count 05/15/24 * Complete Blood Count 10/15/24 * Complete Blood Count 08/06/24 * Complete Blood Count 02/19/24 * Free T3 10/15/24 * Lipid Profile 05/15/24 * Lipid Profile 11/27/23 * Complete Metabolic Panel 05/15/24 * Complete Metabolic Panel 10/15/24 * Complete Metabolic Panel 11/27/23 Radiology* CT Femur w/o Contrast Right 03/04/24 * CT Thorax w/o Contrast 01/11/24 * CT Thorax w/o Contrast 05/21/24 * CT Abdomen and Pelvis w/o contrast 01/11/24 * CT Abdomen and Pelvis w/o contrast 05/21/24 [facility] Evaluation + Plan note Future Appointments Appointment Date:10/22/2024 08:00:00 AM Scheduled Provider: Location:[facility] Appointment Type:INF/OSP Labwork Appointment Date:10/22/2024 08:45:00 AM Scheduled Provider:BHAVIK TRIANA MD Location:[facility] Appointment Type:[facility] OV Follow Up w/ Active Treatme Appointment Date:10/22/2024 09:15:00 AM Scheduled Provider: Location:[facility] Appointment Type:INF Chemo: Infusion 120 min (2 hours) Appointment Date:10/23/2024 02:15:00 PM Scheduled Provider: Location:[facility] Appointment Type:PC Nurse Protime Appointment Date:10/25/2024 02:00:00 PM Scheduled Provider:PROSPER MANJARREZ DO Location:[facility] Appointment Type:PC OV Future Scheduled Tests Laboratory* Cortisol Level 10/15/24 * Basic Metabolic Panel 02/19/24 * Lactate Dehydrogenase 10/15/24 * Thyroid Stimulating Hormone 10/15/24 * Free T4 10/15/24 * Complete Blood Count 05/15/24 * Complete Blood Count 10/15/24 * Complete Blood Count 08/06/24 * Complete Blood Count 02/19/24 * Free T3 10/15/24 * Lipid Profile 05/15/24 * Lipid Profile 11/27/23 * Complete Metabolic Panel 05/15/24 * Complete Metabolic Panel 10/15/24 * Complete Metabolic Panel 11/27/23 Radiology* CT Femur w/o Contrast Right 03/04/24 * CT Thorax w/o Contrast 01/11/24 * CT Thorax w/o Contrast 05/21/24 * CT Abdomen and Pelvis w/o contrast 01/11/24 * CT Abdomen and Pelvis w/o contrast 05/21/24 [facility] Evaluation + Plan note Future Appointments Appointment Date:10/23/2024 02:15:00 PM Scheduled Provider: Location:[facility] Appointment Type:PC Nurse Protime Appointment Date:10/25/2024 02:00:00 PM Scheduled Provider:PROSPER MANJARREZ DO Location:[facility] Appointment Type:PC OV Appointment Date:11/19/2024 08:45:00 AM Scheduled Provider: Location:[facility] Appointment Type:INF/OSP Labwork Appointment Date:11/19/2024 09:30:00 AM Scheduled Provider:BHAVIK TRIANA MD Location:[facility] Appointment Type:[facility] OV Follow Up w/ Active Treatme Appointment Date:11/19/2024 10:00:00 AM Scheduled Provider: Location:[facility] Appointment Type:INF Chemo: Infusion 120 min (2 hours) Appointment Date:12/17/2024 10:00:00 AM Scheduled Provider: Location:[facility] Appointment Type:INF/OSP Labwork Appointment Date:12/17/2024 10:15:00 AM Scheduled Provider: Location:[facility] Appointment Type:INF Chemo: Infusion 120 min (2 hours) Appointment Date:01/07/2025 09:00:00 AM Scheduled Provider: Location:[facility] Appointment Type:CT Chest w/o Contrast Future Scheduled Tests Laboratory* Cortisol Level 11/19/24 * Cortisol Level 12/17/24 * Basic Metabolic Panel 02/19/24 * Lactate Dehydrogenase 11/19/24 * Lactate Dehydrogenase 12/17/24 * Thyroid Stimulating Hormone 12/17/24 * Thyroid Stimulating Hormone 11/19/24 * Free T4 11/19/24 * Free T4 12/17/24 * Complete Blood Count 11/19/24 * Complete Blood Count 12/17/24 * Complete Blood Count 05/15/24 * Complete Blood Count 08/06/24 * Complete Blood Count 02/19/24 * Free T3 11/19/24 * Free T3 12/17/24 * Lipid Profile 05/15/24 * Lipid Profile 11/27/23 * Complete Metabolic Panel 11/19/24 * Complete Metabolic Panel 12/17/24 * Complete Metabolic Panel 05/15/24 * Complete Metabolic Panel 11/27/23 Radiology* CT Femur w/o Contrast Right 03/04/24 * CT Thorax w/o Contrast 01/07/25 * CT Thorax w/o Contrast 01/11/24 * CT Thorax w/o Contrast 05/21/24 * CT Abdomen and Pelvis w/o contrast 01/11/24 * CT Abdomen and Pelvis w/o contrast 05/21/24 [facility] Evaluation + Plan note Future Appointments Appointment Date:11/27/2024 03:45:00 PM Scheduled Provider: Location:[facility] Appointment Type:PC Nurse Protime Appointment Date:12/17/2024 08:00:00 AM Scheduled Provider: Location:[facility] Appointment Type:INF/OSP Labwork Appointment Date:12/17/2024 08:15:00 AM Scheduled Provider: Location:[facility] Appointment Type:INF Chemo: Infusion 120 min (2 hours) Appointment Date:12/31/2024 03:00:00 PM Scheduled Provider: Location:[facility] Appointment Type:CT Chest w/o Contrast Appointment Date:01/07/2025 09:00:00 AM Scheduled Provider: Location:[facility] Appointment Type:CT Chest w/o Contrast Appointment Date:01/14/2025 08:00:00 AM Scheduled Provider: Location:[facility] Appointment Type:INF/OSP Labwork Appointment Date:01/14/2025 08:45:00 AM Scheduled Provider:BHAVIK TRIANA MD Location:[facility] Appointment Type:[facility] OV Follow Up w/ Active Treatme Appointment Date:01/14/2025 09:15:00 AM Scheduled Provider: Location:INF Appointment Type:INF Chemo: Infusion 120 min (2 hours) Future Scheduled Tests Laboratory* Cortisol Level 12/17/24 * Cortisol Level 12/17/24 * Cortisol Level 01/14/25 * Basic Metabolic Panel 02/19/24 * Lactate Dehydrogenase 12/17/24 * Lactate Dehydrogenase 12/17/24 * Lactate Dehydrogenase 01/14/25 * Thyroid Stimulating Hormone 12/17/24 * Thyroid Stimulating Hormone 12/17/24 * Thyroid Stimulating Hormone 01/14/25 * Free T4 12/17/24 * Free T4 12/17/24 * Free T4 01/14/25 * Complete Blood Count 12/17/24 * Complete Blood Count 05/15/24 * Complete Blood Count 12/17/24 * Complete Blood Count 01/14/25 * Complete Blood Count 08/06/24 * Complete Blood Count 02/19/24 * Free T3 12/17/24 * Free T3 12/17/24 * Free T3 01/14/25 * Lipid Profile 05/15/24 * Lipid Profile 11/27/23 * Complete Metabolic Panel 12/17/24 * Complete Metabolic Panel 05/15/24 * Complete Metabolic Panel 12/17/24 * Complete Metabolic Panel 01/14/25 * Complete Metabolic Panel 11/27/23 Radiology* CT Femur w/o Contrast Right 03/04/24 * CT Thorax w/o Contrast 01/07/25 * CT Thorax w/o Contrast 01/11/24 * CT Thorax w/o Contrast 12/31/24 * CT Thorax w/o Contrast 05/21/24 * CT Abdomen and Pelvis w/o contrast 01/11/24 * CT Abdomen and Pelvis w/o contrast 05/21/24 [facility] Evaluation note* Skin: Warm and dryMidsternal incision MATHEW, no redness/swelling/drainage rash to panniculus/skin folds improvingEyes: clear scleraENMT: mucous membranes moistHead/Neck: Neck supple, no apparent injury, trachea midline.Respiratory/Thorax: Diminished breath sounds at the bases; Non productive cough; Sternum stableGastrointestinal: Nondistended, soft, non-tender, +BS, last BM 08/27Genitourinary: voiding, denies difficultyMusculoskeletal: MENDEZ, deconditioningExtremities: 1+ pitting edemaNeurological: alert and oriented x3, no gross focal deficitsPsychological: Flat, withdrawnCardiovascular: Regular rate and rhythm, S1S2, no murmurs, 2+ equal pulses of the extremitiesAV wires CUT 08/28Rhythm: NSR 60s, short bursts of AflutterConstitutional: Awake ,no distress, alert and cooperative. laying in bed [facility] Diagnosis Typical atrial flutter (CMS/HCC) Right atrial mass SOB (shortness of breath) on exertion Shortness of breath documented in this encounter [facility] Work Phone: Evaluation note* Diagnosis Typical atrial flutter (CMS/HCC) Right atrial mass SOB (shortness of breath) on exertion Shortness of breath Atypical atrial flutter (CMS/HCC) Pulmonary thrombosis (CMS/HCC) Other pulmonary embolism and infarction documented in this encounter [facility] Work Phone: Evaluation note* Diagnosis 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 May shower. * Labs 1 (Modify Template):Lab Test(s): Basic Metabolic Panel, CBC, MagnesiumDate To Be Drawn: Once the week following dischargeFax Results To: Dr. Prosper Ugarte, PCP and Dr. Rivka Elkins, biology tutor * Oxygen:Other Instructions incentive spirometer 10x/ hr while awake. * Additional Orders:Vital Signs: every visitWeight: Daily and record. Take these numbers with you to your Cardiology appointment. If your weight increases by more than three pounds from baseline weight, call your Cardiology office.Additional Instructions: Keep Your Move in the Tube!! And think of a CindyAdri Gunner dinosaur! Please refer to the Move in the Tube handout. Load bearing activities can be completed if you are staying in the tube. If you are attempting load bearing activities, let pain be your guide with when trying an activity out of the tube . If an activity hurts or is uncomfortable go backto doing it while you stay in the tube . There is no time limit to stay in the tube . Non-load bearing activities which are your activities of daily living can be completed with your arms out of the tube as long as you remain pain free. Some activities of daily living examples are dressing, personal care, showering, washing hair, and toilet hygiene. * Call Provider If:Any new concerning symptoms. * Activity:- Continue to increase activity and use incentive spirometer, cough and deep breathing. - Pace activities as tolerated. Avoid heavy physical exertion and lifting. Balance rest periods with activity. - All medication refills will be obtained from the Primary Care Provider or Coil Strapper. -For severe chest pain, extreme shortness of breath, coughing up frothy sputum, or fainting, GO DIRECTLY TO THE EMERGENCY ROOM OR CALL 911 IF YOU HAVE ANY OF THESE SYMPTOMS. - No pushing, pulling, or lifting objects greater than 10 pounds for 3 months (sternal precautions). - MAY shower. - MAY NOT drive for 4 to 6 weeks, until follow up visit with the surgeon. Discuss driving at your follow-up appointment. - Maintain a daily weight log. Use same scale, before breakfast, after voiding. Take the log to your follow-up appointments. - Wear your LifeVest at all times, except while taking a short shower (ideally with another person nearby). - Inform Radiology of retained epicardial pacing wires ifyou ever need a MRI. Make an appointment with the Cardiac Surgeon if the wires ever poke out, or ifyou develop chronic drainage or pain from the site of the previous wires. No NSAIDs (common wmqv-ahe-fzkhjmq NSAIDs are ibuprofen/Motrin/Advil, naproxen/Naprosyn/Aleve) for 3 months after cardiac surgery; if NSAIDs needed after 3 months, clear use with biology tutor before starting. * Call Provider If:- Redness, drainage or other problems with incisions, notify the Cardiac Surgeon'soffice. - Signs and symptoms of Heart Failure: call your Coil Strapper if you have weight gain of 3 pounds or more in less than 3 days; shortness of breath at rest, with activity, or when lying flat; dizziness or fainting. - Notify the Cardiac Surgeon s office of any readmission to a hospital beforeyour follow-up appointment with the Cardiac Surgeon. * Patient Instructions:- CALL 911 IF YOU HAVE ANY OF THE SIGNS AND SYMPTOMS OF HEART FAILURE: 1. Chest pain 2. Significant Shortness of breath 3. Fainting. - Notify your physician immediately if you have shortness of breath; weight gain of 3 lbs. or more; fatigue and loss of energy; swelling of lowerextremities or abdomen; dizziness or fainting; change of appetite; and frequent coughing. - Patientreceived Living With Heart Failure book. - Daily weight on the same scale, same time after voiding and before eating. - Maintain daily weight log. * Activity (Heart Failure):- Balance activity with rest, gradually increase your activity as tolerated. - Exercise as prescribed by your physician. * Home Care Face to Face Certification:Home Care Services Needed: yesHome Care Agency: Other (with phone number), [facility], Sensitive Object skilled Disciplines Ordered: RN/GROUP HOME COUNSELOR, PTFace to Face Encounter Completed: yesDate of Encounter: [id number] Necessity for Homecare (based on clinical findings): Short-term home care is needed to monitor for signs and symptoms of decompensation/adverse events from cardiac disease. Patient at high risk for re-hospitalization. Home care services needed to restore ability to walk without support and establish home exercise program as patient is at high risk for falls. Homebound Status: homeboundHomebound Due to: Patientwith recent exacerbation of cardiac disease. Patient experiences dyspnea with minimal exertion. Ambulates limited distance of 20 feet. Patient has poor endurance and requires use of assistance/walker for safe ambulation in the home. The totality of these findings support a considerable and taxing effort to leave home due to limited mobility and pain. Face to Face Completed and Home Care Orders Reviewed: I certify that this patient is under my care. I have reviewed the information included in the face to face and certify that the home care services ordered are medically necessary for this patient. * Home Care Skilled Service:Home Care Skilled Service: assessment, follow up teaching, labs, medication, Rehab (PT/OT/SP eval and treat), weight check, wound careType of Assessment: Open heart surgery;right atrial mass resectionAssessment: First Home Care Visit: Home Care to determineTeaching: FirstHome Care Visit: Home Care to determineLab Instructions: see lab ordersMed Compliance: First Home Care Visit: Home Care to determineRehab: First Home Care Visit: Home Care to determineWeight Check: First Home Care Visit: Home Care to determineWound Care: First Home Care Visit: Home Care to determine * Follow Up Appointment 1:Physician/Dept/Service: Cardiac Surgery Nurse Discharge Follow-Up Phone CallScheduled Date/Time: 08-Sep-2022 10:40Location: Please do not go to office, this appointment is scheduled as a virtual or telephone visit. You may receive the call 15 minutes before or 15 minutes afte r the schedule time.Phone Number: office [phone] * Follow Up Appointment 2:Physician/Dept/Service: Dr. Brady, cardiac surgeonScheduled Date/Time: 07-Oct-2022 12:30[facility] [phone]: 12:30pm forchest xray in [facility] 5th floor radiology, then 1:30pm for appointment in [place] [address] * Follow Up Appointment 3:Physician/Dept/Service: Dr. Prosper Ugarte, PCPScheduled Date/Time: 08-Sep-2022 13:00Location: [address] [id number] [phone] Number: [phone]: Please bring insurance information and photo ID * Follow Up Appointment 4:Physician/Dept/Service: Dr. Rivka Elkins, General CardiologyScheduled Date/Time: 05-Sep-2022 10:00Location: [facility]; [facility] [address] [facility] [address]Gpclc Number: [phone]: Please bring insurance information and photo ID * Follow Up Appointment 5:Physician/Dept/Service: Dr. Bhavik Triana, OncologyScheduled Date/Time: 01-Sep-2022 10:30Location: [facility]; [address] [place] [address] [place] [phone] Number: [phone]: Please bring insurance information and photo ID * Coumadin (Warfarin) Follow-Up Monitoring:Physician/Dept/Service: Dr. Prosper Valentinte/Time next PT/INR due: 31-Aug-2022 10:45Phone Number: [phone] * Follow Up Appointment 6:Physician/Dept/Service: Dr. Doron Gonzalez - Vascular MedicineReason for Referral: RA mass, s/p pulmonary embolectomyScheduled Date/Time: 11-Oct-2022 15:00Location: [facility] [address] [place] [address] 6Phone Number: [phone]: follow-up appointment: 10/11/22 @ 3:00 pm * Follow Up Appointment 7:Physician/Dept/Service: INR checkReason for Referral: warfarinScheduled Date/Time: 31-Aug-2022 10:45Location: Dr. Ugarte's officePhone Number: [phone] [facility] CenterProgress note No data available for this section [facility] Supushdry note* MELANI Martinez: PERFORM Event Display: Patient Summary Documents Authored Date: [id number] [facility] Summary Purpose Family History No Family History Records FoundUnknown Family Member Name Dates Details No pertinent family history: Other(V49.89, Z78.9) Status:Active Unknown Family Member Name Dates Details No pertinent family history: Other(V49.89, Z78.9) Status:Active Unknown Family Member Name Dates Details No pertinent family history: Other(V49.89, Z78.9) Status:Active Unknown Family Member Name Dates Details No pertinent family history: Other(V49.89, Z78.9) Status:Active Advance Directives No Advanced Directives Records FoundNo Advanced Directives Records FoundNo Advanced Directives Records FoundNo Advanced Directives Records FoundNo Advanced Directives Records FoundNo Advanced Directives Records FoundNo Advanced Directives Records FoundNo Advanced Directives Records FoundNo Advanced Directives Records FoundNo Advanced Directives Records FoundNo Advanced Directives Records Found Chief Complaint Patient is here for a P/OP visit following removal of right atrial mass and pulmonary embolectomy done on 08/18/2022. Aissatou BECKER, RN-BC.Patient is here for a P/OP visit following removal of right atrial mass and pulmonary embolectomy done on 08/18/2022. Aissatou BECKER, RN-BC. Reason for Referral Specialty Diagnoses / Procedures Referred By Kinza fong Referred To Contact Vascular Medicine Diagnoses 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) SOB (shortness of breath) History of pulmonary embolism Procedures CONSULT TO VASCULAR MEDICINE OFFICE/OUTPATIENT [facility] MDM 60 MINUTES Yasir Bradford, EKG MONITOR.HOME VISITS NURSE [address] [place] [address] Referral ID Status Reason Start Date Expiration Date Visits Requested Visits Authorized [id number] Authorized PCP Requested Referral 4 11/22/2024 1 1 Specialty Diagnoses / Procedures Referred By Kinza t Referred To Contact [facility] Diagnoses 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) SOB (shortness of breath) Procedures ECHO WITH AGITATED SALINE CONTRAST ECHO TRANSTHORAC R-T 2D W/WO M-MODE REC COMP Yasir Bradford, EKG MONITOR.HOME VISITS NURSE [address] [place] [address] [facility] [place] [address] [place] [address] Referral ID Status Reason Start Date Expiration Date Visits Requested Visits Authorized [id number] New Request Auto-Generat ed Referral 4 11/22/2024 1 1 Specialty Diagnoses / Procedures Referred By Contac t Referred To Contact [facility] Diagnoses 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) SOB (shortness of breath) Procedures US LEG VEIN DVT JACI VAS LAB DUP-SCAN XTR VEINS COMPLETE BILATERAL STUDY Yasir Bradford, EKG MONITOR.[facility] [address] [address] Heart And Vascular [address] [address] Referral ID Status Reason Start Date Expiration Date Visits Requested Visits Authorized [id number] New Request Auto-Generat ed Referral 11/22/2024 1 1 Specialty Diagnoses / Procedures [facility] To Contact [facility] Diagnoses 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) SOB (shortness of breath) Procedures CT CHEST W IVCON PE DIAGNOSTIC COMPUTED TOMOGRAPHY THORAX W/CONTRAST Yasir Bradford, EKG MONITOR.[facility] [address] [place] [id number] Imaging [facility] Referral ID Status Reason Start Date Expiration Date Visits Requested Visits Authorized [id number] New Request Auto-Generat ed Referral 4 12/22/2024 1 1 Specialty Diagnoses / Procedures [facility] Referred To Contact MOLECULAR & FUNCTIONAL IMAGING Diagnoses 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) SOB (shortness of breath) Procedures NM LUNG VENT / PERF VQ PULMONARY VENTILATION & PERFUSION IMAGING Yasir Bradford, EKG MONITOR.[facility] [address] [place] [id number] Molecular & Functional Imaging [address] [place] [id number] Referral ID Status Reason Start Date Expiration Date Visits Requested Visits Authorized [id number] New Request Auto-Generat ed Referral 4 12/22/2024 1 1 Specialty Diagnoses / Procedures [facility] To [facility] Diagnoses 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) SOB (shortness of breath) Procedures SIX MINUTE WALK CARDIOPULMONARY EXERCISE STRESS Yasir Bradford, EKG MONITOR.HOME VISITS NURSE [address] [address] [address] Referral ID Status Reason Start Date Expiration Date Visits Requested Visits Authorized [id number] New Request Auto-Generat ed Referral 4 12/22/2024 1 1 Specialty Diagnoses / Procedures Referred By Contac t Referred To Contact [facility] Diagnoses 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) SOB (shortness of breath) Procedures LUNG DIFFUSION CAPACITY (DLCO) DIFFUSING CAPACITY Yasir Bradford APRN.HOME VISITS NURSE [address] [place] [id number] Respiratory [place] [id number] Referral ID Status Reason Start Date Expiration Date Visits Requested Visits Authorized [id number] New Request Auto-Generat ed Referral 4 12/22/2024 1 1 Specialty Diagnoses / Procedures Referred By Contac t Referred To Contact [facility] Diagnoses 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) SOB (shortness of breath) Procedures LUNG VOLUMES Yasir Bradford APRN.HOME VISITS NURSE [address] [place] [id number] Respiratory [place] [id number] Referral ID Status Reason Start Date Expiration Date Visits Requested Visits Authorized [id number] New Request Auto-Generat ed Referral 12/22/2024 1 1 Specialty Diagnoses / Procedures Referred By Contac t Referred To Contact [facility] Diagnoses 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) SOB (shortness of breath) Procedures SPIROMETRY WITH DILATOR IF OBSTRUCTED BRNCDILAT RSPSE SPMTRY PRE&POST-BRNCDILAT ADMN Yasir Bradford, EKG MONITOR.HOME VISITS NURSE [address] [address] Respiratory [place] [address] [place] [address] Referral ID Status Reason Start Date Expiration Date Visits Requested Visits Authorized [id number] New Request Auto-Generat ed Referral 12/22/2024 1 1 Specialty Diagnoses / Procedures Referred By Kinza t Referred To Contact Cardiology Diagnoses Typical atrial flutter (CMS/HCC) Right atrial mass SOB (shortness of breath) on exertion Procedures Transthoracic Echo (TTE) Complete [place] ECHO TRANSTHORC R-T 2D W/WO M-MODE REC F-UP/LMTD [place] DOP ECHOCARD COLOR FLOW VELOCITY MAPPING [place] DOP ECHOCARD PULSE WAVE W/SPECTRAL F-UP/LMTD STD Rivka Elkins MD [address] [facility] [address] [place] [address] Referral ID Status Reason Start Date Expiration Date Visits Requested Visits Authorized [id number] Authorized Perform Procedure 11/04/2022 05/03/2023 1 1 Additional Source Comments Care Team (unrecognized sect ion and content) Conservation Science Teacher Relationship Specialty Start Date End Date Prosper Manjarrez DO PCP - General 09/25/15 Conservation Science Teacher Relationship Specialty Start Date End Date Prosper Manjarrez DO PCP - General 09/25/15 Conservation Science Teacher Relationship Specialty Start Date End Date Noah Sepulveda MD [address] [facility] [address] [place] [id number] Referring Cardiology 11/16/23 Conservation Science Teacher Relationship Specialty Start Date End Date Noah Sepulveda MD [address] [facility] [address] [place] [address] Referring Cardiology 11/16/23 Care Team (unrecognized sect ion and content) Personnel Name: PROSPER MANJARREZ DO Address: Address: [address] [place], [place] [address] [place] [address] Care Team Personnel Name: PROSPER MANJARREZ DO Position: P4 Physician - Primary Care Med Service: Active Provider Member Role: Primary Care Physician Address: Address: [address] [place] [address]- Name: HAN STOVER MD Member Role: Oncologist Address: Address: [address] [place] [address] [address] Name: BHAVIK TRIANA MD Position: P4 Oncology Provider Med Service: AMB HEM/ONC Member Role: Oncologist Address: Address: [address] [place] [address] [place] [address]- Name: FLO DE LEON MD Position: P4 Physician - Urologist Member Role: Urologist Address: Address: [address] [place], [place] [address]- Care Team Related Persons Name: PROST, CHELSEY Care Team Personnel Name: PROSPER MANJARREZ DO Position: P4 Physician - Primary Care Med Service: Active Provider Member Role: Primary Care Physician Address: Address: [address] [place] [id number]- Name: HAN STOVER MD Member Role: Oncologist Address: Address: [address] [place] [address] [address] [place] [address] Name: BHAVIK TRIANA MD Position: P4 Oncology Provider Med Service: AMB HEM/ONC Member Role: Oncologist Address: Address: [address] [place] [address] Hemat[place] [address]- Name: FLO DE LEON MD Position: P4 Physician - Urologist Member Role: Urologist Address: Address: [address] [place] [address] [address] [place] [address]- [place] Care Team Related Persons Name: PROST, CHELSEY Care Team Personnel Name: PROSPER MANJARREZ DO Position: P4 Physician - Primary Care Member Role: Primary Care Physician Address: Address: [address] [place] [address]- Name: HAN STOVER MD Member Role: Oncologist Address: Address: [address] [facility] [address] [place] [address] Name: BHAVIK TRIANA MD Position: P4 Oncology Provider Member Role: Oncologist Address: Address: [address] [place] [address] Hematology [place] [address]- Name: FLO DE LEON MD Position: P4 Physician - Urologist Member Role: Urologist Address: Address: [address] [place] [address] [place] [address]- Name: Elva Paez RN Position: P4 field crops harvest machine operator Member Role: RN Care Team Related Persons Name: PROST, CHELSEY Care Team Personnel Name: PROSPER MANJARREZ DO Position: P4 Physician - Primary Care Member Role: Primary Care Physician Address: Address: [address] [place] [address]- Name: HAN STOVER MD Member Role: Oncologist Address: Address: [address] [place] [address] [address] [place] [address] Name: BHAVIK TRIANA MD Position: P4 Oncology Provider Member Role: Oncologist Address: Address: [address] [place] [address] H[place] [address]- Name: FLO DE LEON MD Position: P4 Physician - Urologist Member Role: Urologist Address: Address: [address] [place], [place] [id number]- Care Team Related Persons Name: PROST, CHELSEY Care Team Personnel Name: PROSPER MANJARREZ DO Position: P4 Physician - Primary Care Member Role: Primary Care Physician Address: Address: [address] [place], [place] [address]- Name: HAN STOVER MD Member Role: Oncologist Address: Address: [address] [place] [address] [place] Name: BHAVIK TRIANA MD Position: P4 Oncology Provider Member Role: Oncologist Address: Address: [address] [place] [address] Hematology and Oncology [place] [id number]- Name: FLO DE LEON MD Position: P4 Physician - Urologist Member Role: Urologist Address: Address: [address] [place] [address] [place] [id number]- Name: HENOK Wilhelm Position: ED RN Member Role: ED RN Name: DONNA MOCK MD Position: ED Physician Member Role: Attending Physician Address: Address: [facility] [address] [place], [place] [address] Care Team Related Persons Name: PROST, CHELSEY Care Team Personnel Name: PROSPER MANJARREZ DO Position: P4 Physician - Primary Care Member Role: Primary Care Physician Address: Address: [address] Name: HAN STOVER MD Member Role: Oncologist Address: Address: [address] [place] [address] [address] Name: BHAVIK TRIANA MD Position: P4 Oncology Provider Member Role: Oncologist Address: Address: [address] [place] [address] Hematology and Oncology [address] Name: FLO DE LEON MD Position: P4 Physician - Urologist Member Role: Urologist Address: Address: [address] [place] [address] [place] [id number]- Care Team Related Persons Name: PROST, CHELSEY Care Team Personnel Name: PROSPER MANJARREZ DO Position: P4 Physician - Primary Care Member Role: Primary Care Physician Address: Address: [address] [place] [address] Name: HAN STOVER MD Member Role: Oncologist Address: Address: [address] [place] [address] [address] [place] [id number] [place] Name: BHAVIK TRIANA MD Position: P4 Oncology Provider Member Role: Oncologist Address: Address: [address] [place] [address] [place] [address]- Name: FLO DE LEON MD Position: P4 Physician - Urologist Member Role: Urologist Address: Address: [address] [place] [address] [place] [id number]- Care Team Related Persons Name: PROST, CHELSEY Care Team Personnel Name: PROSPER MANJARREZ DO Position: P4 Physician - Primary Care Member Role: Primary Care Physician Address: Address: [address] [facility] [place] [address]- [place] Name: HAN STOVER MD Member Role: Oncologist Address: Address: [address] [place] [address] Name: BHAVIK TRIANA MD Position: P4 Oncology Provider Member Role: Oncologist Address: Address: [address] [place] [address] [place] [address]- Name: FLO DE LEON MD Position: P4 Physician - Urologist Member Role: Urologist Address: Address: [address] [facility] [address] [place] [address]- Name: HENOK Clark Position: P4 field crops harvest machine operator Member Role: RN Care Team Related Persons Name: CHELSEY LOPEZ <item> Privacy Markings (unrecogniz ed section and content) Section Author: Svetlana Bennett PROHIBITION ON REDISCLOSURE OF CONFIDENTIAL INFORMATION This notice accompanies a disclosure of information concerning a client made to you with the consent of such client. (unrecognized sect ion and content) No Status Records FoundNo Status Records FoundNo Status Records FoundNo Status Records FoundNo Status Records FoundNo Status Records FoundNo Status Records FoundNo Status Records FoundNo Status Records FoundNo Status Records FoundNo Status Records Found INFORMATION SOURCE (unrecogn ized section and content) DATE CREATED AUTHOR 09/05/2022 [facility] DATE CREATED AUTHOR AUTHOR'S ORGANIZ ATION 10/11/2022 Spyder Lynk DATE CREATED AUTHOR AUTHOR'S ORGANIZ ATION 10/14/2022 [place] [facility] DATE CREATED AUTHOR AUTHOR'S ORGANIZ ATION 12/04/2022 [facility] DATE CREATED AUTHOR AUTHOR'S ORGANIZ ATION 09/18/2023 [facility] DATE CREATED AUTHOR AUTHOR'S ORGANIZ ATION 10/21/2023 [facility] ([place] DATE CREATED AUTHOR AUTHOR'S ORGANIZ ATION 11/23/2023 [facility] DATE CREATED AUTHOR AUTHOR'S ORGANIZ ATION 03/12/2024 [facility] DATE CREATED AUTHOR AUTHOR'S ORGANIZ ATION 11/28/2024 [facility] DATE CREATED AUTHOR AUTHOR'S ORGANIZ ATION 11/30/2024 [facility] DATE CREATED AUTHOR AUTHOR'S ORGANIZ ATION 12/17/2024 [facility] Reason for Visit (unrecogniz ed section and content) Specialty Diagnoses / Procedures Referred By Contac t Referred To Contact Cardiology Diagnoses Typical atrial flutter (CMS/HCC) Right atrial mass SOB (shortness of breath) on exertion Procedures Transthoracic Echo (TTE) Complete [place] ECHO TRANSTHORC R-T 2D W/WO M-MODE REC F-UP/LMTD [place] DOP ECHOCARD COLOR FLOW VELOCITY MAPPING [place] DOP ECHOCARD PULSE WAVE W/SPECTRAL F-UP/LMTD STD Rivka Elkins MD [address] [place] [address] Referral ID Status Reason Start Date Expiration Date Visits Requested Visits Authorized [id number] Authorized Perform Procedure 11/04/2022 05/03/2023 1 1 Specialty Diagnoses / Procedures Referred By Contac t Referred To Contact Cardiology Diagnoses Typical atrial flutter (CMS/HCC) Right atrial mass SOB (shortness of breath) on exertion Atypical atrial flutter (CMS/HCC) Pulmonary thrombosis (CMS/HCC) Procedures Holter or Event Director Video Rivka Elkins MD [address] [place] [address] Referral ID Status Reason Start Date Expiration Date V isits Requested Visits Authorized [id number] Authorized 11/04/2022 05/03/2023 1 1 Reason Comments Consult External referral fo r CTEPH Reason Comments New CTEPH Referral Reason Comments Multidisciplinary Discussion CTEPH Source Comments (unrecognize d section and content) In the event this informatio n is protected by the Federal Confidentiality of Alcohol and Drug Abuse Patient Records regulations: The Federal rules restrict any use of the information to criminally investigate or prosecute any alcohol or drug abuse patient.[facility] the event this information is protected by the Federal Confidentiality of Alcohol and Drug Abuse Patient Records regulations: The Federal rules restrict any use of the information to criminally investigate or prosecute any alcohol or drug abuse patient.[facility] the event this information is protected by the Federal Confidentiality of Alcohol and Drug Abuse Patient Records regulations: The Federal rules restrict any use of the information to criminally investigate or prosecute any alcohol or drug abuse patient.[facility] the event this information is protected by the Federal Confidentiality of Alcohol and Drug Abuse Patient Records regulations: The Federal rules restrict any use of the information to criminally investigate or prosecute any alcohol or drug abuse patient.[facility] FOR RECORDS PERTAINING TO PATIENTS WHO ARE OR HAVE BEEN ENROLLED IN A CHEMICAL DEPENDENCY/SUBSTANCEABUSE PROGRAM, SOME INFORMATION MAY BE OMITTED. This clinical summary was aggregated from multiple sources. Caution should be exercised in using it in the provision of clinical care. This summary normalizes information from multiple sources, and as a consequence, information in this document may materially change the coding, format and clinical context of patient data. In addition, data may be omitted in some cases. CLINICAL DECISIONS SHOULD BE BASED ON THE PRIMARY CLINICAL RECORDS. [facility]. provides no warranty or guarantee of the accuracy or completeness of information in this document.
[2024-12-29 11:53] LABS: Hematocrit 45.5 % (40-54); Hemoglobin 12.9 g/dL (13.0-16.5); Mean Corp Hgb Conc 28.4 g/dL (32-36); Mean Corpuscular Volume 96.8 fL (80-94); Mean Platelet Vol. 9.9 fl (6.2-12.0); POSITIVE COUNT YES; POSITIVE MORPHOLOGY YES; Platelet Count 261 K/mm3 (150-450); RBC Distribution Width CV 20.1 % (11.6-14.6); RBC Distribution Width SD 71.7 fl (35.1-43.9); Red Blood Count 4.70 M/mm3 (4.6-6.2); White Blood Count 18.7 K/mm3 (4.4-11.0)
[2024-12-29 11:54] LABS: Differential Indicated MANUAL DIFF
[2024-12-29] MEDS: 0.9% Normal Saline (1000mL) 1,000 ML 1000 ML IV (11:59)
--- NOTE | 2024-12-29 12:01 | RAD_ITS ---
PROCEDURE: CHEST 1 VIEW (PORTABLE) 12/29/2024 REASON FOR EXAM: Respiratory failure TECHNIQUE: Frontal view of the chest. COMPARISON: None FINDINGS: ETT tip is 2 cm above the iman in satisfactory position, NG tube tip not seen but is well below the diaphragm. Right IJ central venous catheter tip in the distal SVC. 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
[2024-12-29 12:08] LABS: Allen Test Positive; Base Excess -16 mmol/L (-2 to +2); FI02 100.0; PEEP 10; PO2 328 mmHG (75-100); RR 18; SITE L Radial; SO2 100 % (94-98)
[2024-12-29 12:17] LABS: Neutrophil-Band 6 % (0-5); Neutrophil-Segmented 71 % (47-70); Total Cells Counted 100 (MANUAL DIFF)
[2024-12-29 12:18] LABS: Anisocytosis 1+; Red Cell Morphology N CHROM NORMAL (NORM C&C)
--- NOTE | 2024-12-29 12:37 | ED.RN ---
MD aware of Levophed titration in peripheral IV due to emergent situation.
[2024-12-29 13:04] LABS: Troponin T High Sensitivity 17 ng/L (<=22)
[2024-12-29 13:09] LABS: AST(SGOT) 97 U/L (<=37); Alanine Aminotransfer ALT/SGPT 80 U/L (<=46); Albumin, Serum 3.4 g/dL (3.5-5.0); Alkaline Phosphatase 96 U/L (40-129); Anion Gap 25 (5-15); BUN 26 mg/dL (4-19); BUN/Creat Ratio 10.9 RATIO (10-20); Calcium,Total 8.6 mg/dL (7.6-11.0); Carbon Dioxide 15.4 mmol/L (21.0-32.0); Chloride 101 mmol/L (98-108); Estimated Creatinine Clearance 55.18 ml/min (50-250); Globulin 2.8 g/dL (2.2-4.2); Glucose 275 mg/dL (70-99); Potassium 5.0 mmol/L (3.3-5.1)
[2024-12-29 13:22] LABS: Allen Test Positive; Base Excess -12 mmol/L (-2 to +2); FI02 40.0; PEEP 5; PO2 97 mmHG (75-100); RR 18; SITE L Radial; SO2 94 % (94-98)
[2024-12-29 13:42] LABS: Mucous, Urine 0 SEEN /hpf (<or=2+)
--- NOTE | 2024-12-29 13:42 | ED.RN ---
Unable to place temperature ochoa, 14F ochoa used instead.
[2024-12-29 13:44] LABS: Color, Urine Yellow (Yellow); Glucose, Dipstick 1000 mg/dl (Normal); Ketone-Dipstick Negative (Negative); Leukocyte Esterase-Dipstick 25 /ul (Negative); Nitrite-Dipstick Negative (Negative); Occult Blood-Urine 250 /ul (Negative); Protein-Dipstick 500 mg/dl (Negative); Specific Gravity, Urine 1.020 (1.002-1.030); Urine Bilirubin Dipstick Negative (Negative)
[2024-12-29 13:50] LABS: Red Blood Cells-Urine 10-25 SEEN /hpf (0-5); Squamous Epithelial Cells - UA 5-10 SEEN /hpf (0-5)
[2024-12-29 14:02] LABS: Prothrombin Time (Protime)PT. > 120.0 SECONDS (11.7-14.9)
[2024-12-29 14:32] LABS: Troponin T High Sens 2 HR 45 ng/L (<=22)
[2024-12-29] MEDS: Phytonadione (Vit K) 10 MG in 0.9% Normal Saline (50mL Bag) 50 ML 150 MG IV ×2 (15:30→20:16)
[2024-12-29 15:50] LABS: Reflex Lactate? Y
--- NOTE | 2024-12-29 16:27 | CM.ED ---
Social Work Date of referral: 12/29/24 Reason for referral: Code Blue Cryptozoologist responded to the Code Blue. At the time of arrival, patient was brought in by EMS and was alone/no family. Cryptozoologist was able to obtain a number for patient's grandmother Moon Fields, ) via electronic medical records however when social service agency director called, the number was a non-working number. (11:38) Cryptozoologist was given additional numbers for patient's mother, Kelsea Tee and patient's father, Bautista Meza . Cryptozoologist attempted to make phone contact and received a recording that it was the wrong number for patient's mother and that the number to patient's father is not able to receive calls at this time. Cryptozoologist notified hospital HRO who will make phone contact with [place] [employer] and try and secure additional numbers or will send someone out to the home of patient's grandmother ([address], [place]) (12:09) HRO officer provided update to social service agency director: Patient's dad, who lives with patient is currently admitted at [facility] in [place]. Patient's mother currently resides in [place] and her number was identified as , and patient's sister, Ewelina Amaya lives in [place], [place] and can be reached at . HRO officer reported he had already made phone contact with patient's mother and gave an update on what happened as well as current intubation. Patient's mother made phone contact with social service agency director to get an update and to let social service agency director know that patient's sister, Ewelina is on her way to the hospital. Cryptozoologist let her know that she will try and get an update and will call her back which patient's mother verbalized she understood and was agreeable to. (13:16) After speaking with ED physician, it was agreed that once patient's sister arrives, social service agency director will facilitate a call that can also include patient's mother so the ED doctor can update both patient's sister as well as patient's mother all at once. s iron worker called patient's mother back to let her know that is the current plan which she again, stated was a good plan and was agreeable to. (13:28) Patient's sister arrived, social service agency director was in the room, patient's , patient's ED doctor and patient's mother was present via Face Time from patient's sister's phone. ED doctor provided update. Patient's mother and sister both appeared to be in shock and not appearing to be fully understanding of the severity of patient's current condition/prognosis and both verbalized not being able to make any current decisions regarding withdrawing care. Cryptozoologist validated concerns and suggested family take some time to absorb what is happening/family appears to be in shock, and social service agency director to follow back up. ED doctor recommended a referral to hospice which patient's mother and sister were agreeable to. Cryptozoologist checked on on patient's sister again to see how she was doing who had remained at patient's bedside and she stated she was doing ok/remained tearful but stated her daughter was on her way to be with her. She denied any current needs at this time. (15:10) Cryptozoologist met with patient's sister and her daughter and inquired about sister's preference for hospice provider at which point she requested [facility] . (16:15) Cryptozoologist made phone contact with [facility] and spoke with Constance who took referral and stated she will have a commissioner of relocation services make phone contact outreach to patient's sister within the hour and may have someone here either before the end of the day or tomorrow. (16:24) Cryptozoologist met with patient's sister and her daughter and let her know that the referral was made and to be on the lookout for a call within the next hour or so which she was agreeable to. Patient's sister still very tearful and social service agency director again provided support. Patient's sister expressed appreciation for all of social service agency director's help and assistance. No other needs identified at this time. (16:27) Shyanne Cisse, PLANT MAINTENANCE ENGINEER, AUTO CLUTCH SPECIALIST
--- NOTE | 2024-12-29 16:51 | ED.RN ---
Copious amounts of bloody stool puddling and running off of bed onto floor. Fecal management system placed, pt cleaned, repositioned. Pt's blood pressure drops with and position changes.
--- NOTE | 2024-12-29 16:57 | PCM.HP.STD ---
HPI - General General Date of Admission: 12/29/24 Date of Service: 12/29/24 Chief Complaint: Cardiac arrest, DNR CC hospice care HPI Narrative LYNDSAY LOPEZ, is a 44 M with history of not clear but obtained from ED physician. Patient was found unresponsive in cardiac arrest by law enforcement. law enforcement chest compressions for 10 minutes and then EMS arrived and continued CPR and placed on Arpan device. 3 rounds of epinephrine and then ROSC achieved with the spontaneous palpable pulse. They gave 2 doses of epinephrine and brought to ED. On arrival patient was again pulseless and cyanotic. As per patient's sister and her sisters daughter, he was living alone for 1 week after his father went to longterm. ER [facility] ER document reviewed: Then on 12/28 he went to [facility] ER for sore throat, bumps on arm, body aches and muscle pain but no documented fever. Mild cough denies chest pain or shortness of breath as per [facility] ER note. Vitals were in normal limit. He has history of multiple abscesses and skin issues for 25 years that required incision and drainage and treatment with antibiotics in the past. He was also noted to have swollen bilateral forearm areas which appear to be improving as per the ER note. He was given azithromycin 5 mg 2 tablets probably for cough and vitamin K 5 mg oral. Labs done shows mild leukocytosis 12,000 otherwise normal platelet 200 77K and H&H 14.8/44.8%. PT/INR more than 10.2. HI more than 120 seconds BUN/creatinine 29/1.66 and glucose 145. Triple PCR for SARS-CoV-2, flu and RSV are negative. Group A strep not detected. It seems portable chest x-ray done but neither report or imaging available to review. And then patient was sent back to home with follow-up with family physician In ED, patient intubated, BP 85/45 heart rate 70/min, RR 18 subsequently pressure dropped and started on Levophed drip. Patient also bleeding through the perineal wound and rectal wound. Labs discussed and assessment plan are grossly abnormal and critical, INR more than 19.5, severe acidotic with pH 6.92, pCO2 80.6 and pO2 328 on 100% FiO2 ventilator. ED physician discussed with the patient name DNRCC, hospice care and hospice care was called. I further discussed with the patient and her daughter and agreeable for admission here as hospice care status until patient arrived [facility] Medical History (Updated 12/29/24 @ 16:18 by Gutierrez Guzman MD) Alcohol abuse T11 vertebral fracture Pulmonary embolism Renal cell carcinoma metastatic to bone CHF (congestive heart failure) CAD (coronary artery disease) Afib Home Medications Medication Instructions Recorded Last Taken Type amiodarone 200 mg tablet 200 mg PO DAILY 12/29/24 Unknown History empagliflozin 10 mg tablet 10 mg PO DAILY 12/29/24 Unknown History (Jardiance) furosemide 40 mg tablet 40 mg PO BID 12/29/24 Unknown History metoprolol tartrate 25 mg tablet 25 mg PO BID 12/29/24 Unknown History oxycodone 5 mg tablet 5 mg PO Q6H PRN PRN pain 12/29/24 Unknown History warfarin 2 mg tablet 2 mg PO DAILY 12/29/24 Unknown History warfarin 4 mg tablet PO 12/29/24 Unknown History Allergy/AdvReac Type Severity Reaction Status Date / Time Penicillins Allergy edema Verified 12/29/24 12:40 Social History Smoking Status: Unknown if ever smoked ROS ROS Narrative 14 system ROS unobtainable as patient is intubated, dilated fixed pupil with anoxic brain injury Review of Systems ROS Unobtainable: due to encephalopathy, due to endotracheal tube and due to mental condition Vital Signs Vital Signs Vital Signs: 12/29/24 11:34 12/29/24 11:40 12/29/24 11:41 Temperature 94.7 F L Temperature Source Rectal Pulse Rate 72 70 Pulse Rate [2] Respiratory Rate 18 18 Respiratory Effort Respiratory Pattern Normal Blood Pressure 85/45 L Blood Pressure Mean 58 Blood Pressure Source Blood Pressure Location Pulse Ox 92 99 Oxygen Delivery Method Mechanical Ventilator Oxygen Flow Rate (L/min) Fraction of Inspired Oxygen (FIO2) 100 12/29/24 11:44 12/29/24 11:47 12/29/24 11:52 Temperature Temperature Source Pulse Rate Pulse Rate [2] 72 Respiratory Rate Respiratory Effort Respiratory Pattern Blood Pressure 45/30 L 65/36 L Blood Pressure Mean 35 45 Blood Pressure Source Monitor Monitor Blood Pressure Location Left Arm Left Arm Pulse Ox Oxygen Delivery Method Ambu-Bag Oxygen Flow Rate (L/min) 15 Fraction of Inspired Oxygen (FIO2) 12/29/24 11:58 12/29/24 12:09 12/29/24 12:15 Temperature Temperature Source Pulse Rate 89 Pulse Rate [2] Respiratory Rate 22 H Respiratory Effort Respiratory Pattern Blood Pressure 69/36 L 85/48 L 114/54 L Blood Pressure Mean 47 60 74 Blood Pressure Source Monitor Monitor Blood Pressure Location Left Arm Left Arm Pulse Ox 97 Oxygen Delivery Method Mechanical Ventilator Oxygen Flow Rate (L/min) Fraction of Inspired Oxygen (FIO2) 12/29/24 12:18 12/29/24 12:30 12/29/24 12:30 Temperature 95.8 F L Temperature Source Temporal Pulse Rate 97 81 90 Pulse Rate [2] Respiratory Rate 19 H 18 20 H Respiratory Effort Respiratory Pattern Normal Normal Blood Pressure 149/69 H Blood Pressure Mean 95 Blood Pressure Source Blood Pressure Location Pulse Ox 97 98 97 Oxygen Delivery Method Mechanical Ventilator Oxygen Flow Rate (L/min) Fraction of Inspired Oxygen (FIO2) 70 40 12/29/24 12:34 12/29/24 12:45 12/29/24 12:47 Temperature 96 F L Temperature Source Temporal Pulse Rate 75 Pulse Rate [2] Respiratory Rate 20 H Respiratory Effort Mechanically Ventilated Respiratory Pattern Normal Blood Pressure 149/69 H 133/52 H Blood Pressure Mean 95 79 Blood Pressure Source Monitor Blood Pressure Location Pulse Ox 96 Oxygen Delivery Method Mechanical Ventilator Oxygen Flow Rate (L/min) Fraction of Inspired Oxygen (FIO2) 12/29/24 13:00 12/29/24 13:10 12/29/24 13:30 Temperature 95.5 F L Temperature Source Temporal Pulse Rate 71 72 Pulse Rate [2] Respiratory Rate 18 18 Respiratory Effort Respiratory Pattern Blood Pressure 172/76 H 172/76 H 146/65 H Blood Pressure Mean 108 108 92 Blood Pressure Source Monitor Blood Pressure Location Left Arm Pulse Ox 96 95 Oxygen Delivery Method Mechanical Ventilator Mechanical Ventilator Oxygen Flow Rate (L/min) Fraction of Inspired Oxygen (FIO2) 12/29/24 14:00 12/29/24 14:30 12/29/24 14:30 Temperature 96 F L Temperature Source Temporal Pulse Rate 78 80 78 Pulse Rate [2] Respiratory Rate 19 H 19 H 20 H Respiratory Effort Respiratory Pattern Normal Blood Pressure 129/78 H 124/75 H Blood Pressure Mean 95 91 Blood Pressure Source Blood Pressure Location Pulse Ox 97 98 97 Oxygen Delivery Method Mechanical Ventilator Mechanical Ventilator Oxygen Flow Rate (L/min) Fraction of Inspired Oxygen (FIO2) 40 12/29/24 15:00 12/29/24 15:30 11/16/25 16:00 Temperature 96.6 F L Temperature Source Temporal Pulse Rate 78 97 102 H Pulse Rate [2] Respiratory Rate 20 H 22 H 22 H Respiratory Effort Respiratory Pattern Blood Pressure 137/70 H 122/82 H 116/91 H Blood Pressure Mean 92 95 99 Blood Pressure Source Blood Pressure Location Pulse Ox 97 97 97 Oxygen Delivery Method Mechanical Ventilator Mechanical Ventilator Mechanical Ventilator Oxygen Flow Rate (L/min) Fraction of Inspired Oxygen (FIO2) 12/29/24 16:15 12/29/24 16:20 12/29/24 16:30 Temperature Temperature Source Pulse Rate 111 H Pulse Rate [2] Respiratory Rate 19 H Respiratory Effort Respiratory Pattern Blood Pressure 75/53 L 96/67 86/74 L Blood Pressure Mean 60 76 78 Blood Pressure Source Monitor Monitor Blood Pressure Location Left Arm Pulse Ox 99 Oxygen Delivery Method Mechanical Ventilator Oxygen Flow Rate (L/min) Fraction of Inspired Oxygen (FIO2) 12/29/24 16:44 Temperature Temperature Source Pulse Rate 117 H Pulse Rate [2] Respiratory Rate 20 H Respiratory Effort Respiratory Pattern Blood Pressure Blood Pressure Mean Blood Pressure Source Blood Pressure Location Pulse Ox 100 Oxygen Delivery Method Oxygen Flow Rate (L/min) Fraction of Inspired Oxygen (FIO2) 40 Weight Weight: 300 lb 4.313 oz Body Mass Index (BMI) 43.0 Physical Exam Narrative General: Unconscious, unresponsive, external bleeding possible DIC HEENT: Bilateral pupils dilated and fixed. No corneal reflex Oral: No Gingival or Mucosal Lesions/ Ulcerations Neck: Supple, No JVD, Negative Carotid Bruits Chest wall/Lungs: On ventilator. Breathing over ventilator 19-22/min, ventilator rate set at RR 18 Cardiovascular: Muffled heart sound. On Levophed. Hold for SBP less than 130 mmHg Abdomen: Bowel Sounds sluggish, Soft, Non Tender, Non-Distended. Rectal bleed. Rectal tube present. : Multiple wound over perineal region. Incision and open wounds over right upper thigh. Rectal bleed no dysuria. No renal angle tenderness. No suprapubic tenderness. Extremities: mild pedal edema, Capillary Refill Less than 3 Seconds Skin: Multiple chronic wounds over the perineal and upper thigh. Bleeding from rectum and some perineal wound. Possible DIC Musculoskeletal: No spontaneous movement of extremities. Neurological: Anoxic brain injury, GCS 3. Detailed neuro unobtainable Psych/Mental Status: Unconscious Results Lab / Micro Data 12/29/24:32 12/29/24 11:32 Labs: Laboratory Results - last 24 hr 12/29/24 11:32: WBC 18.7 H, RBC 4.70, Hgb 12.9 L, Hct 45.5, MCV 96.8 H, MCH 27.4, MCHC 28.4 L, RDW Std Deviation 71.7 H, RDW Coeff of Lee 20.1 H, Plt Count 261, MPV 9.9, Neut % (Auto) Not Reportable, Absolute Neuts (auto) 14.4 H, Absolute Lymphs (auto) 2.98, Total Counted 100, Neutrophils % (Manual) 71 H, Band Neutrophils % 6 H, Lymphocytes % (Manual) 16 L, Eosinophils % (Manual) 3, Metamyelocytes % 2 H, Myelocytes % 2 H, Diff Path Review June, Platelet Estimate ADEQUATE, RBC Morphology N CHROM, Anisocytosis 1+, Sodium 141, Potassium 5.0, Chloride 101, Carbon Dioxide 15.4 L, Anion Gap 25 H, BUN 26 H, Creatinine 2.35 H, Estim Creat Clear Calc 55.18, Est GFR (MDRD) Non-Af 34 L, BUN/Creatinine Ratio 10.9, Glucose 275 H, Lactic Acid 12.8 H*, Calcium 8.6, Total Bilirubin 0.43, AST 97 H, ALT 80 H, Alkaline Phosphatase 96, Troponin T High Sens 17, Total Protein 6.2, Albumin 3.4 L, Globulin 2.8, Albumin/Globulin Ratio 1.2 12/29/24 11:35: POC Glucose 200 H 12/29/24 13:30: PT > 120.0 H, INR > 19.5 H* 12/29/24 13:40: Urine Color Yellow, Urine Clarity Sl. Cloudy, Urine pH 6.5, Ur Specific Seco 1.020, Urine Protein 500 H, Urine Glucose (UA) 1000 H, Urine Ketones Negative, Urine Occult Blood 250 H, Urine Nitrite Negative, Urine Bilirubin Negative, Urine Urobilinogen Normal, Ur Leukocyte Esterase 25 H, Urine RBC 10-25 SEEN, Urine WBC 10-25 SEEN, Ur Squamous Epith Cells 5-10 SEEN, Urine Bacteria 0 SEEN, Urine Mucus 0 SEEN 12/29/24 14:10: Troponin T Hi Sens 2 Hr 45 H ABG Data ABG results: ABG 12/29/24 12/29/24 12:03 13:16 Specimen Type ART ART Sample Site L Radial L Radial pH 6.92 L* 7.12 L* Bicarbonate Actual 16.6 L 17.6 L Total CO2 19 19 Base Excess -16 L -12 L O2 Saturation 100 H 94 O2 % 100.0 40.0 ABG pCO2 80.6 H* 54.0 H ABG pO2 328 H* 97 Irineo Test Positive Positive Respiration Rate 18 18 O2 Delivery Device Not entered Adult Vent Vent Mode AC AC Tidal Volume 500.0 500.0 POC PEEP 10 5 Crit Call To/Read Back Yes Yes Blood Gas Notified Whom dr jose luis guzman Blood Gas Notified Time 12:05:07 13:18:41 Imaging Radiology Impression Brain CT 12/29/24 11:44 IMPRESSION: Diffuse cerebral edema with loss of the dey-white matter differentiation, narrowing of the lateral ventricles and near-complete effacement of the basilar cisterns. Findings suggest anoxia No demonstrated acute hemorrhage or midline shift. Hyperdensity along the tentorium is normal No skull fracture or scalp hematoma Paranasal sinusitis Reading Location: [facility] Chest X-Ray 12/29/24 12:01 IMPRESSION: No acute pulmonary process Support lines and tubes as described, no complications Reading Location: [facility] Assessment & Plan Assessment/Plan (1) Respiratory failure: (2) Anoxic cerebral edema: (3) Cardiopulmonary arrest: (4) DNR (do not resuscitate) discussion: PLAN: Plan This is unfortunate 44-year-old gentleman being brought to ER by EMS with [id number], cardiac arrest at home and had resuscitation for 20 minutes and then intubated in ED. 1. Out of the hospital cardiac arrest status post cardiopulmonary resuscitation and anoxic brain injury: Patient's pupils are dilated and fixed with no corneal reflex. No gag reflex. Features of clinical brain . CT brain was done and shows diffuse cerebral edema with loss of dey-white matter differentiation, narrowing of the lateral ventricles and near complete effacement of basilar cisterns suggesting anoxia. No demonstrated acute hemorrhage or midline shift. No skull fracture or scalp hematoma. Paranasal sinusitis. Chest x-ray reported no acute process. Patient on nor epi through peripheral line. Care discussed with the patient's sister that we are admitting for DNR CC hospice as patient's clinical condition does merit admission to tertiary care hospital with neuro ICU care, multiple interdisciplinary team involving automatic pad making machine operator, slackman, ID as patient seems in DIC and multiple organ failure. With brain clearly showing brain edema therefore increased intracranial pressure. Dexamethasone 4 mg IV Q8 hourly ordered just to buy time in order for family members to arrive 2. Acute hypoxic respiratory failure: Patient is intubated. Breathing slightly above ventilator. ABG shows 6.92/80.6/328, actual bicarb 16.6 at 100% FiO2 PEEP 10. Repeat ABG was 7.1 / with base excess -12. Research Instructor consulted to management 3. DIC with multiple organ failure with suspicion of possible septic shock but other differentials of shock cannot be ruled out: As history is not complete but PT/INR is critically high, 19.5, lactic acidosis 12.8, severe acidosis with anion gap 25 but ABG showed CO2 17-18, platelet count 200 61K, leukocytosis 18.7, neutrophil 71%. 6% lymphopenia 16% metamyelocytes 2% and myelocyte 2% suggestive of left shift. As per DNRCC has patient discussion with the patient we are not treating septic shock but empirically start IV vancomycin and meropenem to buy some time so that family members can arrive. They also agreed for as DNR CC hospice status, we are not doing labs, ABG or imaging monitoring. There is no advanced ICU care available with no inpatient automatic pad making machine operator but Tele-ICU automatic pad making machine operator consulted and discussed about DNR CC hospice and goal of care and expectation from the family as hospice status for the last visual of the family members. Patient is allergic to penicillin. We are not following sepsis protocol or IV fluid as patient is DNR CC status. 4. Acute liver injury, acute kidney disease: As per the labs from [facility] ED on 12/28, BUN/creatinine was 29/1.66, bicarb 30. This got worse with bicarb 15, BUN/creatinine 26/2.35. Patient potassium was 4.3 elevated to 5.0. Sodium 141. Elevated transaminases AST 90, ALT 80. Total bili and ALP normal. No prior labs available before 12/28 therefore as you met his acute kidney injury. 5. Mildly elevated troponin most likely increased cardiac demand and CPR: As patient is DNR CC we will not pursue full workup. First troponin 17 and second 145. 6. Smoking history: Patient smokes cigarettes about half to 1 pack. He was also drinking alcohol before 1-2 beers per month but as per the sister he was sober till his father left about 1 week ago to longterm. 7. Multiple comorbidities which include renal cell carcinoma metastatic to bone, heart failure, CAD, A-fib, pulmonary embolism and history of chronic alcohol use in the past: Patient on amiodarone, Jardiance furosemide 40 mg twice daily, metoprolol, oxycodone and warfarin. At this time it is not prudent and futile but status of the chronic disease is unclear but this might of contributed to his present status of poor prognosis Living will/advanced directive/end of life care: Patient does not have living will or advanced directive. He does not have DailyD power of residential property tax appraiser for health but next of kin sister and sister's daughter present in the ER today and had detailed discussion with me and ER physician. They agreed to keep the patient is status quo with the ventilator until family member arrives, his mother from [place] tomorrow morning and his father from [facility]. Research Instructor consulted to monitor vent. Levophed can be given through peripheral maximum 10 mcg per minute. Family member, sister agreed for no lab, imaging, ABG monitoring or transfusion of blood or clot products for DIC with status of DNR CC hospice care. Inpatient hospice consulted. Patient patient's daughter doesn't want artificial life support including tube feed, chest compression, central venous catheter, vasopressor beyond peripheral Levophed and DC shock if needed, ICP monitoring or treatment for brain/cerebral edema which will necessitate tertiary care facility. Total time spent in [id number] encounter in discussion of advanced directive 25 minutes. Total time of the visit including total time spent in counseling or coordination of care, (more than 50% of the total time, spent in obtaining medical information from nurses and other ancillary care providers ,explaining to the patient about labs, imaging, diagnosis and management of active complex medical conditions), discussion with ER physician, patient nursing staff and ER, patient's sister, review of labs and imaging is 55 minutes. Laboratory Results 12/29/24 11:32: WBC 18.7 H, RBC 4.70, Hgb 12.9 L, Hct 45.5, MCV 96.8 H, MCH 27.4, MCHC 28.4 L, RDW Std Deviation 71.7 H, RDW Coeff of Lee 20.1 H, Plt Count 261, MPV 9.9, Neut % (Auto) Not Reportable, Absolute Neuts (auto) 14.4 H, Absolute Lymphs (auto) 2.98, Total Counted 100, Neutrophils % (Manual) 71 H, Band Neutrophils % 6 H, Lymphocytes % (Manual) 16 L, Eosinophils % (Manual) 3, Metamyelocytes % 2 H, Myelocytes % 2 H, Diff Path Review June, Platelet Estimate ADEQUATE, RBC Morphology N CHROM, Anisocytosis 1+, Sodium 141, Potassium 5.0, Chloride 101, Carbon Dioxide 15.4 L, Anion Gap 25 H, BUN 26 H, Creatinine 2.35 H, Estim Creat Clear Calc 55.18, Est GFR (MDRD) Non-Af 34 L, BUN/Creatinine Ratio 10.9, Glucose 275 H, Lactic Acid 12.8 H*, Calcium 8.6, Total Bilirubin 0.43, AST 97 H, ALT 80 H, Alkaline Phosphatase 96, Troponin T High Sens 17, Total Protein 6.2, Albumin 3.4 L, Globulin 2.8, Albumin/Globulin Ratio 1.2 12/29/24 11:35: POC Glucose 200 H 12/29/24 12:03: Specimen Type ART, Sample Site L Radial, pH 6.92 L*, Bicarbonate Actual 16.6 L, Total CO2 19, Base Excess -16 L, O2 Saturation 100 H, O2 % 100.0, ABG pCO2 80.6 H*, ABG pO2 328 H*, Irineo Test Positive, Respiration Rate 18, O2 Delivery Device Not entered, Vent Mode AC, Tidal Volume 500.0, POC PEEP 10, Crit Call To/Read Back Yes, Blood Gas Notified Whom dr amaya, Blood Gas Notified Time 12:05:07 12/29/24 13:16: Specimen Type ART, Sample Site L Radial, pH 7.12 L*, Bicarbonate Actual 17.6 L, Total CO2 19, Base Excess -12 L, O2 Saturation 94, O2 % 40.0, ABG pCO2 54.0 H, ABG pO2 97, Irineo Test Positive, Respiration Rate 18, O2 Delivery Device Adult Vent, Vent Mode AC, Tidal Volume 500.0, POC PEEP 5, Crit Call To/Read Back Yes, Blood Gas Notified Whom thomas Blood Gas Notified Time 13:18:41 12/29/24 13:30: PT > 120.0 H, INR > 19.5 H* 12/29/24 13:40: Urine Color Yellow, Urine Clarity Sl. Cloudy, Urine pH 6.5, Ur Specific Seco 1.020, Urine Protein 500 H, Urine Glucose (UA) 1000 H, Urine Ketones Negative, Urine Occult Blood 250 H, Urine Nitrite Negative, Urine Bilirubin Negative, Urine Urobilinogen Normal, Ur Leukocyte Esterase 25 H, Urine RBC 10-25 SEEN, Urine WBC 10-25 SEEN, Ur Squamous Epith Cells 5-10 SEEN, Urine Bacteria 0 SEEN, Urine Mucus 0 SEEN 12/29/24 14:10: Troponin T Hi Sens 2 Hr 45 H Clinical Impression(s) from Imaging Studies Brain CT 12/29/24 11:44 IMPRESSION: Diffuse cerebral edema with loss of the dey-white matter differentiation, narrowing of the lateral ventricles and near-complete effacement of the basilar cisterns. Findings suggest anoxia No demonstrated acute hemorrhage or midline shift. Hyperdensity along the tentorium is normal No skull fracture or scalp hematoma Paranasal sinusitis Chest X-Ray 12/29/24 12:01 IMPRESSION: No acute pulmonary process Support lines and tubes as described, no complications Reading Location: [facility] Sepsis Attestation Sepsis Alert: Yes Sepsis Attestation: Agree w/Sepsis Date exam was performed: 12/29/24 Time exam was performed: 16:32 Possible Source of Sepsis: Genitourinary, Unknown, Skin/soft tissue and Wound Sepsis Organ Dysfunction Criteria Present: SBP < 90 mmHg or MAP < 65 mmHg, SBP decrease of more than 40 mmHg, Acute Respiratory Failure (New need for BiPAP/CPAP or MV), Creatinine > 2.0 mg/dL, UOP < 0.5 mL/kg/hour for 2 consecutive hours, INR > 1.5 or aPTT > 60 sec, Lactic Acid > 2 mmol/L, Serum CO2 < 20 mmol/L (on BMP), PaO2/FiO2 ratio < 300 and New/Unexplained change in mental status Supportive Findings: Patient in shock most likely septic shock. Patient is DNR CC, hospice care, DIC, multiple organ failure. As per family member agreement and decision, sepsis protocol not followed but pressor started through peripheral line after cardiac arrest for family members to arrive. Hospice is consulted from ER. Treatment adjusted for comfort of the patient Sepsis Note Date exam was performed: 12/29/24 Time exam was performed: 16:32 Sepsis Attestation: Sepsis re-evaluation was performed Response to fluids: Vasopressors started (Patient is DNR CC, hospice care, DIC, multiple organ failure. As per family member, sepsis protocol not followed but pressor started through peripheral line after cardiac arrest for family members to arrive.) Charges/Coding Visit Charges Inpatient E&M: 54379 Init Hosp L3 Procedures Hospitalists Procedures: 66482 Advncd Care Plan 30 Min
--- NOTE | 2024-12-29 17:13 | CM.ED ---
Social Work Bulk Truck Driver received a call back from Leena with [facility] who stated they did make successful phone contact with patient's sister and offered for the assessment to be completed today at 5:30 however Ewelina shared that she had just left the hospital, declined the appointment for today and consequently scheduled it for tomorrow at 9:30am. Bulk Truck Driver expressed appreciation. Shyanne Cisse, PASTRY DECORATOR, FAMILY PRACTICE PHYSICIAN ASSISTANT
--- OUTSIDE RECORDS SUMMARY | 2024-12-29 17:27 | XMS RPT_ITS | CCD ---
Author Organization [facility] Care Team Providers Care Wood Calker Name Role Phone LOKI DR PROSPER ALSTON Primary Care Physician [phone] Prosper Manjarrez Unavailable Oncology Consult Unavailable Unavailable [...] e JILL WHEAT Consulting Unavaila ble [employer] OUTSIDE-APPARATUS REPAIR MECHANIC, MURALI Saldaña Referring Unavaila ble [employer] OUTSIDE-APPARATUS REPAIR MECHANIC, MURALI Saldaña Attending Unavaila ble [employer] OUTSIDE-APPARATUS REPAIR MECHANIC, MURALI Saldaña Admitting Unavaila ble LOKI DO, [...] Attending Unavailable Yessi ACKERMAN, Noah Saldaña [place] [address], [facility] Referring Unavailable [facility], [facility] Primary Care Unavailable Estella Hanson Attending [...] RIDER DO, DR LISBET Tay Attending Unavailable LOKI DO, DR PROSPER Valenzuela [...] e ELVIS MILLER, EZEQUIEL Attending Unavail able LORNA ACKERMAN, PAM [...] LOKI DO, DR CHENG A [facility] Allergies Allergy Classification Reported Allergen(s) Allergy Type Date of Onset Reaction(s) Facility Penicillins (antibiotic) (2 sources) Penicillin; Translations: [penicillins] Drug Allergy Swelling [facility] (20 sources) Penicillin; Translations: [penicillins] Drug Allergy Swelling, Throat Swelling, Facial Swelling [facility] (6 sources) Penicillins; Translations: [Penicillins] Allergy to drug (finding) 3 [facility] (2 sources) Penicillins Propensity to adverse reactions 3 [facility] (1 source) Penicillin Drug Allergy [facility] Medications Current Medications Medication Drug [...] every six hours as needed for pain [place] 325- 5 mg oral tablet Dose = [...] qDay, # 30 tab(s), 5 Refill(s), Pharmacy: [facility]/pharmacy #[id number], 172.5, cm, 10/22/24 10:08:00 EDT, Height, kg, 10/22/24 10:08:00 EDT, Dosing Weight Start Date: 10/22/24 Status: Ordered Medication Dispense Status: Completed Quantity: 30.0 Unit: tab(s) Total Allowed Fills: 6 Fills Dispensed: 0 Start: 07-10-2024 amiodarone 200 mg oral tablet Dose : 200 mg = 1 tab(s), Oral, qDay, # 30 tab(s), 2 Refill(s), [id number], 172.2, cm, 07/03/24 11:40:00 EDT, Height, kg, 07/03/24 11:40:00 EDT, Dosing Weight Start Date: 07/10/24 Status: Ordered Medication Dispense Status: Completed Quantity: 30.0 Unit: tab(s) Total Allowed Fills: 3 Fills Dispensed: 0 Start: 05-15-2024 amiodarone 200 mg oral tablet Dose : 200 mg = 1 tab(s), Oral, qDay, # 30 tab(s), 0 Refill(s), [id number], 172.2, cm, 05/15/24 14:44:00 EDT, Height, [...] needed, # 45 gram(s), 0 Refill(s), Pharmacy: [facility]/pharmacy #[id number], Cream, 173.5, cm, 11/30/23 15:22:00 EDT, [...] 0 Refill(s), 10/30/22 11:04:00 AM EDT, [id number], Folliculitis, 173, cm, 10/20/22 10:27:00 EDT, Height, 172.1, kg, 10/20/22 10:27:00 EDT, Dosing Weight Start Date: 10/20/22 Stop Date: 10/30/22 Status: Ordered empagliflozin 10 mg oral tablet (20 sources) Sodium-Glucose Cotransporter 2 Inhibitor Start: 05-15-2024 End: 02-22-2025 Jardiance 10 mg oral tablet Dose : 10 mg = 1 tab(s), Oral, qAM, # 90 tab(s), 3 Refill(s), [id number], 172.2, cm, 08/09/24 9:40:00 EDT, Height, kg, 08/09/24 9:40:00 EDT, Dosing Weight Start Date: 08/26/24 Stop Date: 02/22/25 Status: Ordered Medication Dispense Status: Completed Quantity: 90.0 Unit: tab(s) Total Allowed Fills: 4 Fills Dispensed: 0 Start: 09-26-2023 End: 05-13-2024 Jardiance 10 mg oral tablet Dose : 10 mg = 1 tab(s), Oral, qAM, # 30 tab(s), 5 Refill(s), Pharmacy: [facility]/pharmacy #[id number], 172.7, cm, 10/31/23 7:00:00 EDT, Height, [...] burn, # 60 tab(s), 5 Refill(s), [id number], 172.5, cm, 03/04/24 13:37:00 EST, Height, [...] burn, # 30 tab(s), 0 Refill(s), [id number], 172.7, cm, 12/27/23 10:34:00 EST, Height, [...] BID, # 180 tab(s), 3 Refill(s), Pharmacy: [facility]/pharmacy #[id number], 172, cm, 03/11/24 15:17:00 EST, Height, kg, 04/02/24 11:06:00 EST, Dosing Weight Start Date: 04/02/24 Status: Ordered Medication Dispense Status: Completed Quantity: 180.0 Unit: tab(s) Total Allowed Fills: 4 Fills Dispensed: 0 Start: 09-27-2023 End: 03-29-2024 Lasix 40 mg oral tablet Dose : 40 mg = 1 tab(s), Oral, BID, # 60 tab(s), 4 Refill(s), Pharmacy: [facility]/pharmacy #[id number], 172.7, cm, 10/31/23 7:00:00 EDT, Height, [...] 0 Refill(s), 07/29/24 3:04:00 PM EDT, Pharmacy: [facility]/pharmacy #[id number], Abscess of right thigh, 172, cm, 07/22/24 [...] qDay, # 30 tab(s), 0 Refill(s), Pharmacy: [facility]/pharmacy #[id number], Arthropathy of right shoulder, 172, cm, 12/08/21 10:24:00 EDT, Height Start Date: 12/08/21 Status: Ordered methylPREDNISolone 4 mg oral tablet (1 source) Corticosteroid Start: End: Medrol Dosepak 4 mg oral tablet 1 packet(s), Oral, qDay, as directed on package labeling, X 6 day(s), # 21 tab(s), 0 Refill(s), 08/02/23 3:37:00 PM EDT, [id number], 174, cm, 07/27/23 14:18:00 EDT, Height, kg, 07/27/23 14:18:00 EDT, Dosing Weight Start Date: 07/27/23 Stop Date: 08/02/23 Status: Ordered metoprolol tartrate 25 mg oral tablet (20 sources) beta-Adrenergic Nitesh Start: metoprolol tartrate 25 mg oral tablet Dose : 25 mg = 1 tab(s), Oral, BID, # 200 tab(s), 3 Refill(s), [id number], 172.7, cm, 10/30/24 14:33:00 EDT, Height, kg, 10/30/24 14:33:00 EDT, Dosing Weight Start Date: 10/30/24 Status: Ordered Medication Dispense Status: Completed Quantity: 200.0 Unit: tab(s) Total Allowed Fills: 4 Fills Dispensed: 0 Start: 10-22-2024 metoprolol tar trate 25 mg oral tablet Dose : 25 mg = 1 tab(s), Oral, BID, # 60 tab(s), 5 Refill(s), Pharmacy: [facility]/pharmacy #[id number], 172.5, cm, 10/22/24 10:08:00 EDT, Height, [...] 0 Refill(s), 08/13/24 4:59:00 PM EDT, Pharmacy: [facility]/pharmacy #[id number], 172.7, cm, 07/30/24 13:53:00 EDT, Height, [...] day(s), # 21 patch(es), 0 Refill(s), [id number], Current smoker, 173, cm, 10/20/22 10:27:00 EDT, Height, kg, 10/20/22 10:27:00 EDT, Dosing Weight Start Date: 10/20/22 Stop Date: 11/10/22 Status: Ordered Start: 10-20-2022 End: 11-10-2022 apply 1 dose transdermal route once daily nicotine 21mg / 24hrs transdermal patch Dose = 1 patch(es), Transdermal, qDay, X 21 day(s), # 21 patch(es), 0 Refill(s), [id number], Current smoker, 173, cm, 10/20/22 10:27:00 EDT, Height, kg, 10/20/22 10:27:00 EDT, Dosing Weight Start Date: 10/20/22 Stop Date: 11/10/22 Status: Ordered Start: 10-20-2022 End: 11-10-2022 apply 1 dose transdermal route once daily nicotine 7mg / 24hrs transdermal patch Dose = 1 patch(es), Transdermal, qDay, use after 14mg patches, X 21 day(s), # 21 patch(es), 0 Refill(s), [id number], Current smoker, 173, cm, 10/20/22 10:27:00 EDT, Height, kg, 10/20/22 10:27:00 EDT, Dosing Weight Start Date: 10/20/22 Stop Date: 11/10/22 Status: Ordered nicotine 21 mg/24 hr transdermal film, extended release (4 sources) Start: 11-06-2020 nicotine 21 mg/24 hr transdermal film, extended release Apply 1 patch(es), Transdermal, qDay, # 21 patch(es), 0 Refill(s), Pharmacy: [facility]/pharmacy #[id number], Tobacco abuse, 172.7, cm, 10/13/20 20:19:00 EDT, Height, 168.6, kg, 11/06/20 9:50:00 EDT, Dosing Weight Start Date: 11/06/20 Status: Ordered nystatin [id number] unt/ml topical cream (1 source) Polyene Antifungal [...] insurance., # 4 gram(s), 11 Refill(s), [id number], COPD without exacerbation, 173, cm, 07/28/23 [...] increased, # 120 tab(s), 0 Refill(s), Pharmacy: [facility]/pharmacy #4605, Cancer related pain Metastatic renal cell [...] pain, # 90 tab(s), 0 Refill(s), Pharmacy: [facility]/pharmacy #4605, Cancer related pain Metastatic renal cell [...] pain, # 90 tab(s), 0 Refill(s), [id number], Renal cancer, 172.5, cm, 03/04/24 13:37:00 [...] pain, # 90 tab(s), 0 Refill(s), [id number], Renal cancer, 172.7, cm, 02/01/24 12:00:00 [...] pain, # 90 tab(s), 0 Refill(s), [id number], Renal cancer, 172.7, cm, 12/27/23 10:34:00 EST, Height, 141.5, kg, 12/27/23 10:34:00 EST, Dosing Weight Start Date: 01/10/24 Status: Ordered Start: 12-11-2023 oxyCODONE 5 mg oral tablet ( IMMEDIATE release ) Dose : 5 mg = 1 tab(s), Oral, q8h, PRN for pain, # 90 tab(s), 0 Refill(s), [id number], Renal cancer, 173.5, cm, 11/30/23 15:22:00 EDT, Height, 141.9, kg, 11/30/23 15:22:00 EDT, Dosing Weight Start Date: 12/11/23 Status: Ordered Start: 11-16-2023 oxyCODONE 5 mg oral tablet ( IMMEDIATE release ) Dose : 5 mg = 1 tab(s), Oral, q8h, PRN for pain, # 90 tab(s), 0 Refill(s), Pharmacy: [facility]/pharmacy #[id number], Renal cancer, 172.7, cm, 11/16/23 11:33:00 EDT, Height, 142, kg, 11/16/23 11:33:00 EDT, Dosing Weight Start Date: 11/16/23 Status: Ordered Start: 10-18-2023 oxyCODONE 5 mg oral tablet ( IMMEDIATE release ) Dose : 5 mg = 1 tab(s), Oral, q8h, PRN for pain, # 90 tab(s), 0 Refill(s), Pharmacy: [facility]/pharmacy #[id number], Renal cancer, 172.7, cm, 10/06/23 14:19:00 [...] pain, # 90 tab(s), 0 Refill(s), Pharmacy: [facility]/pharmacy #4605, Renal cancer, 170, cm, 08/24/23 15:59:00 EDT, Height, 181.8, kg, 08/31/23 14:50:00 EDT, Dosing Weight Start Date: 09/06/23 Status: Ordered Start: 08-09-2023 oxyCODONE 5 mg oral tablet ( IMMEDIATE release ) Dose : 5 mg = 1 tab(s), Oral, q8h, PRN as needed for pain, # 90 tab(s), 0 Refill(s), Pharmacy: [facility]/pharmacy #[id number], Renal cancer, 172.7, cm, 08/09/23 8:36:00 EDT, Height, 181, kg, 08/09/23 8:36:00 EDT, Dosing Weight Start Date: 08/09/23 Status: Ordered Start: 03-16-2023 oxyCODONE 5 mg oral tablet ( IMMEDIATE release ) Dose : 5 mg = 1 tab(s), Oral, q8h, PRN as needed for pain, # 90 tab(s), 0 Refill(s), Pharmacy: [id number], Renal cancer, 172.7, cm, 02/16/23 12:03:00 EST, Height, 177.1, kg, 02/16/23 12:03:00 EST, Dosing Weight Start Date: 03/16/23 Status: Ordered Start: 02-03-2023 oxyCODONE 5 mg oral tablet ( IMMEDIATE release ) Dose : 5 mg = 1 tab(s), Oral, q8h, PRN as needed for pain, # 90 tab(s), 0 Refill(s), [id number], Renal cancer, 172.7, cm, 01/19/23 11:28:00 EST, Height, 169.7, kg, 01/19/23 11:28:00 EST, Dosing Weight Start Date: 02/03/23 Status: Ordered Start: 01-19-2023 oxyCODONE 5 mg oral tablet ( IMMEDIATE release ) Dose : 5 mg = 1 tab(s), Oral, q8h, PRN as needed for pain, may fill on 03/04/23, # 90 tab(s), 0 Refill(s), [id number], Renal cancer, 172.7, cm, 01/19/23 11:28:00 EST, Height, 169.7, kg, 01/19/23 11:28:00 EST, Dosing Weight Start Date: 01/19/23 Status: Ordered Start: 12-01-2022 oxyCODONE 5 mg oral tablet ( IMMEDIATE release ) Dose : 5 mg = 1 tab(s), Oral, q8h, PRN as needed for pain, # 90 tab(s), 0 Refill(s), Pharmacy: [facility]/pharmacy #[id number], Renal cancer, 172.7, cm, 11/24/22 11:41:00 EDT, Height, 169.3, kg, 11/24/22 11:41:00 EDT, Dosing Weight Start Date: 12/01/22 Status: Ordered Start: 10-24-2022 oxyCODONE 5 mg oral tablet ( IMMEDIATE release ) Dose : 5 mg = 1 tab(s), Oral, q8h, PRN as needed for pain, # 90 tab(s), 0 Refill(s), Pharmacy: [facility]/pharmacy #[id number], Renal cancer, 173, cm, 10/24/22 14:03:00 EDT, Height, 172.1, kg, 10/20/22 10:27:00 EDT, Dosing Weight Start Date: 10/24/22 Status: Ordered Start: 09-29-2022 oxyCODONE 5 mg oral tablet ( IMMEDIATE release ) Dose : 5 mg = 1 tab(s), Oral, q8h, PRN as needed for pain, # 90 tab(s), 0 Refill(s), Pharmacy: [facility]/pharmacy #[id number], Renal cancer, 172.7, cm, 09/29/22 10:52:00 EDT, Height, 169.2, kg, 09/29/22 10:52:00 EDT, Dosing Weight Start Date: 09/29/22 Status: Ordered Start: 09-01-2020 oxyCODONE 5 mg oral tablet ( IMMEDIATE release ) Dose : 5 mg = 1 tab(s), Oral, q8h, PRN PRN as needed for pain, # 90 tab(s), 0 Refill(s), Pharmacy: [facility]/pharmacy #[id number], Renal cancer, 172.7, cm, 06/09/22 11:10:00 [...] daily., # 255 gram(s), 5 Refill(s), [id number], 172.7, cm, 10/13/20 20:19:00 EDT, Height, [...] daily., # 255 gram(s), 5 Refill(s), [id number], 172.7, cm, 10/13/20 20:19:00 EDT, Height, [...] tab(s), 0 Refill(s), 01/01/21 14:06:00 EST, [id number], 172, cm, 12/25/20 13:33:00 EST, Height, [...] TID, # 90 tab(s), 1 Refill(s), Pharmacy: [facility]/pharmacy #[id number], Pulmonary hypertension, 172.2, cm, 05/15/24 14:44:00 [...] Refill(s) Start Date: 11/17/20 Status: Ordered sennosides, skilled nursing 8.6 mg oral tablet (20 sources) Start: 10-07-2024 senna (sennosi isamar) 8.6 mg oral tablet Dose : 17.2 mg = 2 tab(s), Oral, BID, PRN as needed for constipation, # 120 tab(s), 5 Refill(s), Pharmacy: [facility]/pharmacy #[id number], 172.7, cm, 09/17/24 10:34:00 EDT, Height, kg, 09/17/24 10:34:00 EDT, Dosing Weight Start Date: 10/07/24 Status: Ordered Medication Dispense Status: Completed Quantity: 120.0 Unit: tab(s) Total Allowed Fills: 6 Fills Dispensed: 0 Start: 11-16-2023 senna (sennosi isamar) 8.6 mg oral tablet Dose : 17.2 mg = 2 tab(s), Oral, BID, PRN as needed for constipation, # 120 tab(s), 3 Refill(s), Pharmacy: [facility]/pharmacy #[id number], 172.7, cm, 11/16/23 11:33:00 EDT, Height, kg, 11/16/23 11:33:00 EDT, Dosing Weight Start Date: 11/16/23 Status: Ordered Medication Dispense Status: Completed Quantity: 120.0 Unit: tab(s) Total Allowed Fills: 4 Fills Dispensed: 0 Start: 08-09-2023 senna (sennosi isamar) 8.6 mg oral tablet Dose : 17.2 mg = 2 tab(s), Oral, BID, PRN as needed for constipation, # 120 tab(s), 3 Refill(s), Pharmacy: [facility]/pharmacy #[id number], 172.7, cm, 08/09/23 8:36:00 EDT, Height, kg, 08/09/23 8:36:00 EDT, Dosing Weight Start Date: 08/09/23 Status: Ordered Start: 09-01-2022 senna (sennosi isamar) 8.6 mg oral tablet Dose : 17.2 mg = 2 tab(s), Oral, BID, PRN as needed for constipation, # 120 tab(s), 3 Refill(s), Pharmacy: [facility]/pharmacy #[id number], 172.7, cm, 09/01/22 9:58:00 EDT, Height, kg, 09/01/22 9:58:00 EDT, Dosing Weight Start Date: 09/01/22 Status: Ordered Start: 11-17-2020 senna 8.6 mg o ral tablet Dose : 17.2 mg = 2 tab(s), Oral, BID, PRN as needed for constipation, # 20 tab(s), 0 Refill(s) Start Date: 11/17/20 Status: Ordered take 2 tablets by [facility] twice daily as needed senna (sennosides) 8.6 [...] food, # 30 tab(s), 2 Refill(s), Pharmacy: [facility]/pharmacy #[id number], 172.7, cm, 10/30/24 14:33:00 EDT, Height, kg, 10/30/24 14:33:00 EDT, Dosing Weight Start Date: 11/04/24 Status: Ordered Medication Dispense Status: Completed Quantity: 30.0 Unit: tab(s) Total Allowed Fills: 3 Fills Dispensed: 0 Start: 04-08-2024 Aldactone 25 m g oral tablet Dose : 25 mg = 1 tab(s), Oral, qDay, Take with food, # 30 tab(s), 8 Refill(s), Pharmacy: [facility]/pharmacy #[id number], 172, cm, 04/04/24 13:44:00 EST, Height, kg, 04/04/24 13:44:00 EST, Dosing Weight Start Date: 04/08/24 Status: Ordered Medication Dispense Status: Completed Quantity: 30.0 Unit: tab(s) Total Allowed Fills: 9 Fills Dispensed: 0 Start: 03-20-2024 Aldactone 25 m g oral tablet Dose : 25 mg = 1 tab(s), Oral, qDay, Take with food, # 30 tab(s), 8 Refill(s), Pharmacy: [facility]/pharmacy #[id number], 172, cm, 03/11/24 15:17:00 EST, Height, kg, 03/11/24 15:30:00 EST, Dosing Weight Start Date: 03/20/24 Status: Ordered Quantity: 30.0 Unit: tab(s) Repeat number: 9 Start: 11-23-2023 Aldactone 25 m g oral tablet Dose : 25 mg = 1 tab(s), Oral, qDay, Take with food, # 30 tab(s), 3 Refill(s), [id number], 172.7, cm, 11/16/23 11:33:00 EDT, Height, kg, 11/16/23 11:33:00 EDT, Dosing Weight Start Date: 11/23/23 Status: Ordered Quantity: 30.0 Unit: tab(s) Repeat number: 4 Start: 10-31-2023 Aldactone 25 m g oral tablet Dose : 25 mg = 1 tab(s), Oral, qDay, Take with food, # 30 tab(s), 3 Refill(s), Pharmacy: [facility]/pharmacy #[id number], 172.7, cm, 10/31/23 7:00:00 EDT, Height, [...] day(s), # 20 tab(s), 0 Refill(s), [id number], 172.5, cm, 10/16/24 13:43:00 EDT, Height, [...] swallow)., # 1 EA, 11 Refill(s), Pharmacy: [facility]/pharmacy #4605, COPD - Chronic obstructive pulmonary disease, [...] area, # 160 gram(s), 3 Refill(s), Pharmacy: [facility]/pharmacy #[id number], Cream, 172.7, cm, 01/19/23 11:28:00 EST, Height, 169.7, kg, 01/19/23 11:28:00 EST, Dosing Weight Start Date: 02/15/23 Status: Ordered Start: 12-01-2022 triamcinolone 0.1% topical cream Apply 1 julia, Topical, BID, apply a thin film to affected area, # 160 gram(s), 3 Refill(s), Pharmacy: [facility]/pharmacy #[id number], Cream, 172.7, cm, 11/24/22 11:41:00 EDT, Height, 169.3, kg, 11/24/22 11:41:00 EDT, Dosing Weight Start Date: 12/01/22 Status: Ordered Start: 11-15-2022 triamcinolone 0.1% topical cream Apply 1 julia, Topical, BID, apply a thin film to affected area, # 80 gram(s), 2 Refill(s), [id number], Cream, 173, cm, 10/27/22 10:35:00 EDT, Height, 176.6, kg, 10/27/22 10:35:00 EDT, Dosing Weight Start Date: 11/15/22 Status: Ordered Start: 10-24-2022 triamcinolone 0.1% topical cream Apply 1 julia, Topical, BID, apply a thin film to affected area, # 80 gram(s), 1 Refill(s), [id number], Cream, 173, cm, 10/24/22 14:03:00 EDT, Height, 172.1, kg, 10/20/22 10:27:00 EDT, Dosing Weight Start Date: 10/24/22 Status: Ordered warfarin sodium 2 mg oral tablet (20 sources) Vitamin K Antagonist Start: 11-04-2024 warfarin 2 mg oral tablet Dose : 2 mg = 1 tab(s), Oral, qDay, # 30 tab(s), 5 Refill(s), [facility], 172.7, cm, 10/30/24 14:33:00 EDT, Height, [...] days, # 30 tab(s), 5 Refill(s), [id number], 172.7, cm, 10/30/24 14:33:00 EDT, Height, kg, 10/30/24 14:33:00 EDT, Dosing Weight Start Date: 11/04/24 Status: Ordered Medication Dispense Status: Completed Quantity: 30.0 Unit: tab(s) Total Allowed Fills: 6 Fills Dispensed: 0 Start: 06-24-2024 warfarin 2 mg oral tablet Dose : 2 mg = 1 tab(s), Oral, qDay, # 30 tab(s), 2 Refill(s), [id number], 172.2, cm, 06/05/24 12:53:00 EDT, Height, kg, 06/05/24 12:53:00 EDT, Dosing Weight Start Date: 06/24/24 Status: Ordered Medication Dispense Status: Completed Quantity: 30.0 Unit: tab(s) Total Allowed Fills: 3 Fills Dispensed: 0 Start: 02-19-2024 warfarin 2 mg oral tablet Dose : 2 mg = 1 tab(s), Oral, qDay, # 30 tab(s), 2 Refill(s), [id number], 172.7, cm, 02/19/24 10:49:00 EST, Height, kg, 02/19/24 10:49:00 EST, Dosing Weight Start Date: 02/19/24 Status: Ordered Quantity: 30.0 Unit: tab(s) Repeat number: 3 Start: 11-15-2023 warfarin 2 mg oral tablet Dose : 2 mg = 1 tab(s), Oral, qDay, # 30 tab(s), 2 Refill(s), [id number], 172.7, cm, 10/31/23 7:00:00 EDT, Height, [...] 0 Refill(s), 07/31/24 3:20:00 PM EDT, Pharmacy: [facility] #[id number], 172.7, cm, 07/24/24 14:57:00 EDT, Height, [...] disease (1 source) Atherosclerotic heart disease of [place] coronary artery without angina pectoris; Translations: [Athscl heart disease of [place] coronary artery w/o ang pctrs] Onset: 08-29-2022 [...] current use of drug therapy; Translations: [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 [place] [address] ? Patient: LYNDSAY LOPEZ Phone#: : 1980 Age: 44 Gender: M Pt. Type: Out Account: [id number] Location: [facility] Ordering: SOURAV BRADFORD Exam Date: 11/27/2024/7:14 Family Phys: PROSPER LOKI Charge Code: 195357 Physician: [place] Order #: [id number] Dose#: PROCEDURE: VENOUS DOPPLER RT LEG COMPARISON: None. INDICATIONS: R/o DVT TECHNIQUE: Color duplex Doppler ultrasound evaluation analysis was performed in the usual manner. BEER STILL RUNNER COMPOUNDER: SHANKAR MENENDEZ RVT [facility] RISK FACTORS FOR VENOUS DISEASE: Other R/o [...] PERONEAL V + GSV GASTROC SOLEAL V BEER STILL RUNNER COMPOUNDER'S NOTES: FINDINGS: Continued Report - Page 2 of 2 Patient: LYNDSAY LOPEZ Phone#: : 1980 Age: 44 Gender: M Pt. Type: Out Account: [id number] Location: [facility] Ordering: SOURAV BRADFORD Exam Date: 11/27/2024/7:14 Family Phys: PROSPER LOKI Charge Code: 452989 Physician: [place] Order #: [id number] Dose#: THROMBI: None visible. COMPRESSIBILITY: Normal. OTHER: Negative. CONCLUSION: 1. There is no evidence of superficial or deep vein thrombus. Dictated by: Lisa Barker MD on 11/27/2024 at 9:37 Approved by: Lisa Barker MD on 11/27/2024 at 9:38 Normal [facility] APTTon 11-26-2024 aPTT Coag (Bld) [Time] 45.7 s High 25.4 - 38.4 J [facility] Comment on above: Performed By: #### [id number] #### [facility],[address] [place] [address] 12720 D-DIMER, QUANTITATIVEon 11-13 D-DIMER QUANT <200 Normal 0 - 230 [facility] Comment on above: Performed By: #### 2 [id number] #### [facility],[address] [place] [address]206 D-DIMER, QUANTITATIVE Normal [facility] Comment on above: Result Comment: VADIM T D-DIMER Performed By: #### [id number] #### [facility],[address] [place] [id number] ED MED ADMINISTRATION DETAIL on 11-26-2024 ED MED ADMINISTRATION DETAIL Fashion Journalist - LYNDSAY LOPEZ : 1980, , Medication Administration Record [address] [address] [id number] 11/25/2024 Patient: LYNDSAY LOPEZ Sex: Male : [...] Roberto, Scanned R.N. 1 of 1 Normal [facility] ED NURSES CLINICAL NOTEon ED NURSES CLINICAL NOTE Nurse Narrative - LYNDSAY LOPEZ, : 1980, , Nurse Clinical Narrative [address] [address] [id number] 11/25/2024 20:48:00 Patient: LYNDSAY LOPEZ Sex: Male [...] No fever, muscle aches or headache. Treatment RECEIVER STOCKER: None. SEPSIS SCREEN: NEGATIVE. SIRS criteria negative. [...] EDT Norma High R.N. Nurse Narrative - LYNDSAY LOPEZ, : 1980, , Measurements: 21:11/25/24 Wt: [...] Norma Nicole (more content not included)... Normal [facility] ED ORDER SHEET (CPOE ONLY)on 11-26-2024 ED ORDER SHEET (CPOE ONLY) Order Sheet - LYNDSAY LOPEZ, : 1980, , Order Sheet [address] [address] [id number] 11/25/2024 Patient: LYNDSAY LOPEZ Sex: Male : [...] (11/26/2024 02:08 EDT)] 2 of 2 Normal [facility] ED PHYSICIAN CLINICAL REPORT on 11-26-2024 ED PHYSICIAN CLINICAL REPORT Narrative - LYNDSAY LOPEZ : 1980, , Physician Clinical Narrative [address] [address] [id number] 11/25/2024 20:48:00 Patient: LYNDSAY LOPEZ Sex: Male [...] tablet: Stopped (more content not included)... Normal [facility] ED SUPER BILLon 11-26-2024 ED [facility] LYNDSAY Haskins, : 1980, , [address] [address] [id number] 11/25/2024 Patient: LYNDSAY LOPEZ Sex: Male : 1980 Age: 44y Item Facility Profession Category Description Code al Code Quantity Fee Total Nurse/E/M EMERGENCY 566336 1 $0.00 $0.00 DEPARTMEN T VISIT MODERATE SEVERITY (49144-70) Grand Total $0.00 Providers Sourav Bradford D.O. Chief Complaint LOWER EXTREMITY PAIN and SWELLING. Principal Diagnosis Acute right lower leg pain. ICD-10 Codes 1 of 2 LYNDSAY Haskins, : 1980, , M79.661: Pain in right lower leg 2 of 2 Normal [facility] ED VISIT SUMMARYon ED VISIT SUMMARY Visit Overview - LYNDSAY DUFFY : 1980, , [place] [address] [id number] 11/25/2024 Patient: LYNDSAY LOPEZ Sex: Male : [...] Adempas 2. (more content not included)... Normal [facility] ED VITALS FLOW SHEETon 11-26 ED VITALS FLOW SHEET Vitals - BHAVNA LOPEZ ELIJAH, : 1980, , Vital Sign Flow Sheet [place] [id number] [place] [address] [id number] 11/25/2024 Patient: LYNDSAY LOPEZ Sex: Male : 1980 Age: 44y Measurements Wt: 122.5 kg, Ht/Hernando: 68.0 in, BMI: 41.05 Measured Lamonte Time BP MAP HR RR O2Sat ETCO2 Temp n GCS RTS 01:22 134/70 91 68 18 98% 11/26/2024 21:09 151/93 112 95 16 96% RA 98.3 F 3 11/25/2024 1 of 1 Normal [facility] PROTHROMBIN TIME AND INRon 1 INR Coag (PPP) [Relative time] 2.8 {INR} High 0.8 - 1.2 [facility] Comment on above: Result Comment: T [...] [employer]CH[employer] HE[employer]VES Performed By: #### 2 [id number] #### [facility],[address] [place] [address] PROTHROMBIN TIME AND INR Normal [facility] Comment on above: Result Comment: PROT HROMBIN TIME AND INR Performed By: #### 2 71651 #### [facility],[address] [place] [address] PT-COUMADIN 30.2 sec High 9.3 - 14.1 [facility] Comment on above: Performed By: #### 2 69313 #### [facility],[address] [place], [place] [id number] .Auto Diffon 11-19-2024 Basophil, Absolute 0.1 10 3/mcL Normal 0.0-0.3 [facility] Comment on above: Performed By: #### T SH, FT3, JUANCARLOS, LD, FT4, ADIFF, GFR, ANEU, CBC, CMP #### [address] [address] Basophils/100 WBC (Bld) 0.7 % Normal 0.0-2.5 [facility] Comment on above: Performed By: #### T SH, FT3, JUANCARLOS, LD, FT4, ADIFF, GFR, ANEU, CBC, CMP #### [address] [address] Eosinophil, Absolute 0.7 10 3/mcL Normal 0.0-0.7 [facility] Comment on above: Performed By: #### T SH, FT3, JUANCARLOS, LD, FT4, ADIFF, GFR, ANEU, CBC, CMP #### [address] [address] Eosinophils/100 WBC (Bld) 8.4 % High 0.0-6.0 [facility] Comment on above: Performed By: #### T SH, FT3, JUANCARLOS, LD, FT4, ADIFF, GFR, ANEU, CBC, CMP #### [address] [address] Lymphocyte, Absolute 2.0 10 3/mcL Normal 0.9-4.3 [facility] Comment on above: Performed By: #### T SH, FT3, JUANCARLOS, LD, FT4, ADIFF, GFR, ANEU, CBC, CMP #### [address] [address] Lymphocytes/100 WBC (Bld) 24.2 % Normal 20.0-40.0 [facility] Comment on above: Performed By: #### T SH, FT3, JUANCARLOS, LD, FT4, ADIFF, GFR, ANEU, CBC, CMP #### [address] [address] Monocyte, Absolute 0.7 10 3/mcL Normal 0.1-1.4 [facility] Comment on above: Performed By: #### T SH, FT3, JUANCARLOS, LD, FT4, ADIFF, GFR, ANEU, CBC, CMP #### [address] [address] Monocytes/100 WBC (Bld) 8.2 % Normal 2.0-13.0 [facility] Comment on above: Performed By: #### T SH, FT3, JUANCARLOS, LD, FT4, ADIFF, GFR, ANEU, CBC, CMP #### [address] [address] Neutrophils/100 WBC (Bld) 58.5 % Normal 50.0-75.0 [facility] Comment on above: Performed By: #### T SH, FT3, JUANCARLOS, LD, FT4, ADIFF, GFR, ANEU, CBC, CMP #### [place] [address] .GFRon 11-19-2024 Estimated Glomerular Filtration Rate 79 ml/min/1.73sqm Normal [facility] Comment on above: Result Comment: Stages [...] FT4, ADIFF, GFR, ANEU, CBC, CMP #### [place] [address] .NEUABSon 11-19-2024 Neutrophil, Absolute 4.9 10 3/mcL Normal 2.3-8.1 [facility] Comment on above: Performed By: #### T SH, FT3, JUANCARLOS, LD, FT4, ADIFF, GFR, ANEU, CBC, CMP #### [place] [address] CBCon 11-19-2024 Erythrocyte distribution width (RBC) [Ratio] 18.1 % High 11.5-15.5 [facility] Comment on above: Performed By: #### T SH, FT3, JUANCARLOS, LD, FT4, ADIFF, GFR, ANEU, CBC, CMP #### [place] [address] Hematocrit (Bld) [Volume fraction] 44.2 % Normal 40.0-52.0 [facility] Comment on above: Performed By: #### T SH, FT3, JUANCARLOS, LD, FT4, ADIFF, GFR, ANEU, CBC, CMP #### [place] [address] Hgb 14.3 G/dL Normal 13.0-17.5 [facility] Comment on above: Performed By: #### T SH, FT3, JUANCARLOS, LD, FT4, ADIFF, GFR, ANEU, CBC, CMP #### [place] [id number] MCH (RBC) [Entitic mass] 27.5 pg Normal 27.0-33.0 [facility] Comment on above: Performed By: #### T SH, FT3, JUANCARLOS, LD, FT4, ADIFF, GFR, ANEU, CBC, CMP #### [place] [id number] MCHC 32.5 G/dL Normal 32.0-36.0 [facility] Comment on above: Performed By: #### T SH, FT3, JUANCARLOS, LD, FT4, ADIFF, GFR, ANEU, CBC, CMP #### [place] [address] MCV (RBC) [Entitic vol] 84.7 fL Normal 81.0-100.0 [facility] Comment on above: Performed By: #### T SH, FT3, JUANCARLOS, LD, FT4, ADIFF, GFR, ANEU, CBC, CMP #### [place] [address] Platelet 268 10 3/mcL Normal 150-450 [facility] Comment on above: Performed By: #### T SH, FT3, JUANCARLOS, LD, FT4, ADIFF, GFR, ANEU, CBC, CMP #### [place] [address] Platelet mean volume (Bld) [Entitic vol] 7.5 fL Normal 6.4-10.5 [facility] Comment on above: Performed By: #### T SH, FT3, JUANCARLOS, LD, FT4, ADIFF, GFR, ANEU, CBC, CMP #### [place] [address] RBC 5.21 10 6/mcL Normal 4.50-6.00 [facility] Comment on above: Performed By: #### T SH, FT3, JUANCARLOS, LD, FT4, ADIFF, GFR, ANEU, CBC, CMP #### [place] [address] WBC 8.3 10 3/mcL Normal 4.5-10.8 [facility] Comment on above: Performed By: #### T SH, FT3, JUANCARLOS, LD, FT4, ADIFF, GFR, ANEU, CBC, CMP #### [place] [address] CMPon 11-19-2024 Albumin Level 3.4 G/dL Normal 3.2-4.8 [facility] Comment on above: Performed By: #### T SH, FT3, JUANCARLOS, LD, FT4, ADIFF, GFR, ANEU, CBC, CMP #### [place] [address] Albumin/Globulin [Mass ratio] 1.1 {ratio} Normal 0.9-1.6 [facility] Comment on above: Performed By: #### T SH, FT3, JUANCARLOS, LD, FT4, ADIFF, GFR, ANEU, CBC, CMP #### [address] [address] ALP [Catalytic activity/Vol] 82 U/L Normal 38-126 [facility] Comment on above: Performed By: #### T SH, FT3, JUANCARLOS, LD, FT4, ADIFF, GFR, ANEU, CBC, CMP #### [place] [id number] ALT [Catalytic activity/Vol] 16 U/L Normal 12-55 [facility] Comment on above: Performed By: #### T SH, FT3, JUANCARLOS, LD, FT4, ADIFF, GFR, ANEU, CBC, CMP #### [place] [id number] AST [Catalytic activity/Vol] 17 U/L Normal 8-34 [facility] Comment on above: Performed By: #### T SH, FT3, JUANCARLOS, LD, FT4, ADIFF, GFR, ANEU, CBC, CMP #### [address] [address] Bili Total 0.30 mg/dL Normal 0.20-1.20 [facility] Comment on above: Result Comment: Use of this assay is not recommended for patients undergoing treatment with eltrombopag due to the potential for falsely elevated results. Performed By: #### T SH, FT3, JUANCARLOS, LD, FT4, ADIFF, GFR, ANEU, CBC, CMP #### [place] [id number] BUN/Creatinine Ratio 8.6 ratio Low 10.0-22.0 [facility] Comment on above: Performed By: #### T SH, FT3, JUANCARLOS, LD, FT4, ADIFF, GFR, ANEU, CBC, CMP #### [place] [address] Calcium [Mass/Vol] 8.3 mg/dL Low 8.7-10.4 [facility] Comment on above: Performed By: #### T SH, FT3, JUANCARLOS, LD, FT4, ADIFF, GFR, ANEU, CBC, CMP #### [address] [address] Chloride [Moles/Vol] 108 mmol/L Normal 98-110 [facility] Comment on above: Performed By: #### T SH, FT3, JUANCARLOS, LD, FT4, ADIFF, GFR, ANEU, CBC, CMP #### [address] [address] CO2 [Moles/Vol] 23 mmol/L Normal 22-32 [facility] Comment on above: Performed By: #### T SH, FT3, JUANCARLOS, LD, FT4, ADIFF, GFR, ANEU, CBC, CMP #### [address] [address] Creatinine [Mass/Vol] 1.16 mg/dL Normal 0.60-1.40 [facility] Comment on above: Result Comment: Test ing performed on [employer] analyzer using enzymatic creatinine methodology. Performed By: #### T SH, FT3, JUANCARLOS, LD, FT4, ADIFF, GFR, ANEU, CBC, CMP #### [address] [address] Electrolyte Balance 10.0 mEq/L Normal 4.0-15.0 [facility] Comment on above: Performed By: #### T SH, FT3, JUANCARLOS, LD, FT4, ADIFF, GFR, ANEU, CBC, CMP #### [address] [address] Globulin 3.2 G/dL Normal 2.5-4.2 [facility] Comment on above: Performed By: #### T SH, FT3, JUANCARLOS, LD, FT4, ADIFF, GFR, ANEU, CBC, CMP #### [place] [id number] Glucose [Mass/Vol] 81 mg/dL Normal 70-110 [facility] Comment on above: Performed By: #### T SH, FT3, JUANCARLOS, LD, FT4, ADIFF, GFR, ANEU, CBC, CMP #### [address] [address] Potassium [Moles/Vol] 4.1 mmol/L Normal 3.5-5.0 [facility] Comment on above: Performed By: #### T SH, FT3, JUANCARLOS, LD, FT4, ADIFF, GFR, ANEU, CBC, CMP #### [place] [id number] Sodium [Moles/Vol] 141 mmol/L Normal 136-145 [facility] Comment on above: Performed By: #### T SH, FT3, JUANCARLOS, LD, FT4, ADIFF, GFR, ANEU, CBC, CMP #### [address] [address] Total Protein 6.6 G/dL Normal 5.7-8.2 [facility] Comment on above: Performed By: #### T SH, FT3, JUANCARLOS, LD, FT4, ADIFF, GFR, ANEU, CBC, CMP #### [address] [address] Urea nitrogen [Mass/Vol] 10.0 mg/dL Normal 8.0-22.0 [facility] Comment on above: Performed By: #### T SH, FT3, JUANCARLOS, LD, FT4, ADIFF, GFR, ANEU, CBC, CMP #### [place] [address] CORTon 11-19-2024 Cortisol Level 12.1 mcg/dL Normal [facility] Comment on above: Result Comment: Juancarlos isol AM Reference Range 6.5-26.0 mcg/dL Cortisol PM Reference Range 3.5-15.0 mcg/dL Performed By: #### T SH, FT3, JUANCARLOS, LD, FT4, ADIFF, GFR, ANEU, CBC, CMP #### [place] [address] FT3on 11-19-2024 Free T3 [Mass/Vol] 3.49 pg/mL Normal 2.30-4.20 [facility] Comment on above: Performed By: #### T SH, FT3, JUANCARLOS, LD, FT4, ADIFF, GFR, ANEU, CBC, CMP #### [place] [address] FT4on 11-19-2024 Free T4 [Mass/Vol] 1.56 ng/dL Normal 0.89-1.76 [facility] Comment on above: Result Comment: No te - New Reference Range in effect 19 Performed By: #### T SH, FT3, JUANCARLOS, LD, FT4, ADIFF, GFR, ANEU, CBC, CMP #### [place] [address] LABORATORYOrdered By: SYSTEM SYSTEM on 11-19-2024 Albumin [...] above: Interpretive Data: T esting performed on [employer] analyzer using enzymatic creatinine methodology. Electrolyte Balance [...] LDHon 11-19-2024 LDH 188 U/L Normal 120-246 [facility] Comment on above: Performed By: #### T SH, FT3, JUANCARLOS, LD, FT4, ADIFF, GFR, ANEU, CBC, CMP #### [place] [id number] TSHon 11-19-2024 TSH 1.855 mIU/mL Normal 0.550-4.780 [facility] Comment on above: Performed By: #### T SH, FT3, JUANCARLOS, LD, FT4, ADIFF, GFR, ANEU, CBC, CMP #### [address] [address] .Auto Diffon 10-22-2024 Basophil, Absolute 0.1 10 3/mcL Normal 0.0-0.3 [facility] Comment on above: Performed By: #### T SH, FT3, JUANCARLOS, LD, FT4, ADIFF, GFR, ANEU, CBC, CMP #### [address] [address] Basophils/100 WBC (Bld) 0.8 % Normal 0.0-2.5 [facility] Comment on above: Performed By: #### T SH, FT3, JUANCARLOS, LD, FT4, ADIFF, GFR, ANEU, CBC, CMP #### [address] [address] Eosinophil, Absolute 0.8 10 3/mcL High 0.0-0.7 [facility] Comment on above: Performed By: #### T SH, FT3, JUANCARLOS, LD, FT4, ADIFF, GFR, ANEU, CBC, CMP #### [address] [address] Eosinophils/100 WBC (Bld) 8.4 % High 0.0-6.0 [facility] Comment on above: Performed By: #### T SH, FT3, JUANCARLOS, LD, FT4, ADIFF, GFR, ANEU, CBC, CMP #### [address] [address] Lymphocyte, Absolute 1.4 10 3/mcL Normal 0.9-4.3 [facility] Comment on above: Performed By: #### T SH, FT3, JUANCARLOS, LD, FT4, ADIFF, GFR, ANEU, CBC, CMP #### [address] [address] Lymphocytes/100 WBC (Bld) 14.0 % Low 20.0-40.0 [facility] Comment on above: Performed By: #### T SH, FT3, JUANCARLOS, LD, FT4, ADIFF, GFR, ANEU, CBC, CMP #### [address] [address] Monocyte, Absolute 0.7 10 3/mcL Normal 0.1-1.4 [facility] Comment on above: Performed By: #### T SH, FT3, JUANCARLOS, LD, FT4, ADIFF, GFR, ANEU, CBC, CMP #### [address] [address] Monocytes/100 WBC (Bld) 7.4 % Normal 2.0-13.0 [facility] Comment on above: Performed By: #### T SH, FT3, JUANCARLOS, LD, FT4, ADIFF, GFR, ANEU, CBC, CMP #### [address] [address] Neutrophils/100 WBC (Bld) 69.4 % Normal 50.0-75.0 [facility] Comment on above: Performed By: #### T SH, FT3, JUANCARLOS, LD, FT4, ADIFF, GFR, ANEU, CBC, CMP #### [address] [address] .GFRon 10-22-2024 Estimated Glomerular Filtration Rate 64 ml/min/1.73sqm Normal [facility] Comment on above: Result Comment: Stages [...] FT4, ADIFF, GFR, ANEU, CBC, CMP #### [address] [address] .NEUABSon 10-22-2024 Neutrophil, Absolute 6.9 10 3/mcL Normal 2.3-8.1 [facility] Comment on above: Performed By: #### T SH, FT3, JUANCARLOS, LD, FT4, ADIFF, GFR, ANEU, CBC, CMP #### [address] [address] CBCon 10-22-2024 Erythrocyte distribution width (RBC) [Ratio] 17.0 % High 11.5-15.5 [facility] Comment on above: Performed By: #### T SH, FT3, JUANCARLOS, LD, FT4, ADIFF, GFR, ANEU, CBC, CMP #### [place] [address] Hematocrit (Bld) [Volume fraction] 40.8 % Normal 40.0-52.0 [facility] Comment on above: Performed By: #### T SH, FT3, JUANCARLOS, LD, FT4, ADIFF, GFR, ANEU, CBC, CMP #### [place] [address] Hgb 13.4 G/dL Normal 13.0-17.5 [facility] Comment on above: Performed By: #### T SH, FT3, JUANCARLOS, LD, FT4, ADIFF, GFR, ANEU, CBC, CMP #### [place] [address] MCH (RBC) [Entitic mass] 28.2 pg Normal 27.0-33.0 [facility] Comment on above: Performed By: #### T SH, FT3, JUANCARLOS, LD, FT4, ADIFF, GFR, ANEU, CBC, CMP #### [place] [address] MCHC 32.7 G/dL Normal 32.0-36.0 [facility] Comment on above: Performed By: #### T SH, FT3, JUANCARLOS, LD, FT4, ADIFF, GFR, ANEU, CBC, CMP #### [place] [address] MCV (RBC) [Entitic vol] 86.1 fL Normal 81.0-100.0 [facility] Comment on above: Performed By: #### T SH, FT3, JUANCARLOS, LD, FT4, ADIFF, GFR, ANEU, CBC, CMP #### [place] [address] Platelet 245 10 3/mcL Normal 150-450 [facility] Comment on above: Performed By: #### T SH, FT3, JUANCARLOS, LD, FT4, ADIFF, GFR, ANEU, CBC, CMP #### [facility] [address] [place], [place] [address] Platelet mean volume (Bld) [Entitic vol] 6.9 fL Normal 6.4-10.5 [facility] Comment on above: Performed By: #### T SH, FT3, JUANCARLOS, LD, FT4, ADIFF, GFR, ANEU, CBC, CMP #### [place] [address] RBC 4.74 10 6/mcL Normal 4.50-6.00 [facility] Comment on above: Performed By: #### T SH, FT3, JUANCARLOS, LD, FT4, ADIFF, GFR, ANEU, CBC, CMP #### [place] [address] WBC 9.9 10 3/mcL Normal 4.5-10.8 [facility] Comment on above: Performed By: #### T SH, FT3, JUANCARLOS, LD, FT4, ADIFF, GFR, ANEU, CBC, CMP #### [place] [address] CMPon 10-22-2024 Albumin Level 3.4 G/dL Normal 3.2-4.8 [facility] Comment on above: Performed By: #### T SH, FT3, JUANCARLOS, LD, FT4, ADIFF, GFR, ANEU, CBC, CMP #### [place] [address] Albumin/Globulin [Mass ratio] 1.0 {ratio} Normal 0.9-1.6 [facility] Comment on above: Performed By: #### T SH, FT3, JUANCARLOS, LD, FT4, ADIFF, GFR, ANEU, CBC, CMP #### [place] [address] ALP [Catalytic activity/Vol] 91 U/L Normal 38-126 [facility] Comment on above: Performed By: #### T SH, FT3, JUANCARLOS, LD, FT4, ADIFF, GFR, ANEU, CBC, CMP #### [place] [id number] ALT [Catalytic activity/Vol] 11 U/L Low 12-55 [facility] Comment on above: Performed By: #### T SH, FT3, JUANCARLOS, LD, FT4, ADIFF, GFR, ANEU, CBC, CMP #### [address] [address] AST [Catalytic activity/Vol] 12 U/L Normal 8-34 [facility] Comment on above: Performed By: #### T SH, FT3, JUANCARLOS, LD, FT4, ADIFF, GFR, ANEU, CBC, CMP #### [address] [address] Bili Total 0.40 mg/dL Normal 0.20-1.20 [facility] Comment on above: Result Comment: Use of this assay is not recommended for patients undergoing treatment with eltrombopag due to the potential for falsely elevated results. Performed By: #### T SH, FT3, JUANCARLOS, LD, FT4, ADIFF, GFR, ANEU, CBC, CMP #### [address] [address] BUN/Creatinine Ratio 10.1 ratio Normal 10.0-22.0 [facility] Comment on above: Performed By: #### T SH, FT3, JUANCARLOS, LD, FT4, ADIFF, GFR, ANEU, CBC, CMP #### [address] [address] Calcium [Mass/Vol] 9.4 mg/dL Normal 8.7-10.4 [facility] Comment on above: Performed By: #### T SH, FT3, JUANCARLOS, LD, FT4, ADIFF, GFR, ANEU, CBC, CMP #### [address] [address] Chloride [Moles/Vol] 107 mmol/L Normal 98-110 [facility] Comment on above: Performed By: #### T SH, FT3, JUANCARLOS, LD, FT4, ADIFF, GFR, ANEU, CBC, CMP #### [address] [address] CO2 [Moles/Vol] 30 mmol/L Normal 22-32 [facility] Comment on above: Performed By: #### T SH, FT3, JUANCARLOS, LD, FT4, ADIFF, GFR, ANEU, CBC, CMP #### [address] [address] Creatinine [Mass/Vol] 1.38 mg/dL Normal 0.60-1.40 [facility] Comment on above: Result Comment: Test ing performed on [employer] analyzer using enzymatic creatinine methodology. Performed By: #### T SH, FT3, JUANCARLOS, LD, FT4, ADIFF, GFR, ANEU, CBC, CMP #### [address] [address] Electrolyte Balance 4.0 mEq/L Normal 4.0-15.0 [facility] Comment on above: Performed By: #### T SH, FT3, JUANCARLOS, LD, FT4, ADIFF, GFR, ANEU, CBC, CMP #### [address] [address] Globulin 3.3 G/dL Normal 2.5-4.2 [facility] Comment on above: Performed By: #### T SH, FT3, JUANCARLOS, LD, FT4, ADIFF, GFR, ANEU, CBC, CMP #### [address] [address] Glucose [Mass/Vol] 98 mg/dL Normal 70-110 [facility] Comment on above: Performed By: #### T SH, FT3, JUANCARLOS, LD, FT4, ADIFF, GFR, ANEU, CBC, CMP #### [address] [address] Potassium [Moles/Vol] 3.9 mmol/L Normal 3.5-5.0 [facility] Comment on above: Performed By: #### T SH, FT3, JUANCARLOS, LD, FT4, ADIFF, GFR, ANEU, CBC, CMP #### [address] [address] Sodium [Moles/Vol] 141 mmol/L Normal 136-145 [facility] Comment on above: Performed By: #### T SH, FT3, JUANCARLOS, LD, FT4, ADIFF, GFR, ANEU, CBC, CMP #### [address] [address] Total Protein 6.7 G/dL Normal 5.7-8.2 [facility] Comment on above: Performed By: #### T SH, FT3, JUANCARLOS, LD, FT4, ADIFF, GFR, ANEU, CBC, CMP #### [place] [address] Urea nitrogen [Mass/Vol] 14.0 mg/dL Normal 8.0-22.0 [facility] Comment on above: Performed By: #### T SH, FT3, JUANCARLOS, LD, FT4, ADIFF, GFR, ANEU, CBC, CMP #### [place] [address] CORTon 10-22-2024 Cortisol Level 11.6 mcg/dL Normal [facility] Comment on above: Result Comment: Juancarlos isol AM Reference Range 6.5-26.0 mcg/dL Cortisol PM Reference Range 3.5-15.0 mcg/dL Performed By: #### T SH, FT3, JUANCARLOS, LD, FT4, ADIFF, GFR, ANEU, CBC, CMP #### [place] [address] FT3on 10-22-2024 Free T3 [Mass/Vol] 3.59 pg/mL Normal 2.30-4.20 [facility] Comment on above: Performed By: #### T SH, FT3, JUANCARLOS, LD, FT4, ADIFF, GFR, ANEU, CBC, CMP #### [place] [address] FT4on 10-22-2024 Free T4 [Mass/Vol] 1.50 ng/dL Normal 0.89-1.76 [facility] Comment on above: Result Comment: No te - New Reference Range in effect 19 Performed By: #### T SH, FT3, JUANCARLOS, LD, FT4, ADIFF, GFR, ANEU, CBC, CMP #### [place] [address] LABORATORYOrdered By: SYSTEM SYSTEM on 10-22-2024 Albumin [...] Cortisol [Mass/Vol] 11.6 ug/dL Invalid Interpretation Code [facility] Comment on above: Interpretive Data: C ortisol AM Reference Range 6.5-26.0 mcg/dL Cortisol PM Reference Range 3.5-15.0 mcg/dL Creatinine [Mass/Vol] 1.38 mg/dL Normal 0.60 - 1.40 mg/dL [facility] Comment on above: Interpretive Data: T esting performed on [employer] analyzer using enzymatic creatinine methodology. Electrolyte Balance [...] LDHon 10-22-2024 LDH 165 U/L Normal 120-246 [facility] Comment on above: Performed By: #### T SH, FT3, JUANCARLOS, LD, FT4, ADIFF, GFR, ANEU, CBC, CMP #### [address] [address] TSHon 10-22-2024 TSH 3.249 mIU/mL Normal 0.550-4.780 [facility] Comment on above: Performed By: #### T SH, FT3, JUANCARLOS, LD, FT4, ADIFF, GFR, ANEU, CBC, CMP #### [address] [address] CEFTAZIDIME+AVIBACTAM:SUSC:P T:ISOLATE:ORDQN:MICon 10-16-2024 cefTAZidime+Avibactam KEN [Susc] Few Proteus mirabilis Light Group B Beta Hemolytic Strep (Strep agalactiae) Sensitivity testing is not recommended for one of the following reasons: 1. Established susceptibility patterns are available or 2. Interpretative criteria are not available. [facility] cefTAZidime+Avibactam KEN [S usc]on 10-16-2024 GS 1+ Polymorphonuclear cells 1+ Mononuclear cells 1+ Gram Positive [facility] Proteus mirabilis Proteus mirabilis [facility] CT ABDOMEN/PELVIS W/ORAL CON TRAST ONLYon [...] 10/10/2024 11:38:10 AM Ordering Provider: EZEQUIEL LEAL [facility] CT THORAX W/O CONTRASTon CT THORAX W/O [...] 10/10/2024 11:30:58 AM Ordering Provider: EZEQUIEL Green [facility] .Auto Diffon 09-17-2024 Basophil, Absolute 0.1 10 3/mcL Normal 0.0-0.3 [facility] Comment on above: Performed By: #### T SH, FT3, JUANCARLOS, LD, FT4, ADIFF, GFR, ANEU, CBC, CMP #### [address] [address] Basophils/100 WBC (Bld) 1.0 % Normal 0.0-2.5 [facility] Comment on above: Performed By: #### T SH, FT3, JUANCARLOS, LD, FT4, ADIFF, GFR, ANEU, CBC, CMP #### [address] [address] Eosinophil, Absolute 0.7 10 3/mcL Normal 0.0-0.7 [facility] Comment on above: Performed By: #### T SH, FT3, JUANCARLOS, LD, FT4, ADIFF, GFR, ANEU, CBC, CMP #### [address] [address] Eosinophils/100 WBC (Bld) 7.1 % High 0.0-6.0 [facility] Comment on above: Performed By: #### T SH, FT3, JUANCARLOS, LD, FT4, ADIFF, GFR, ANEU, CBC, CMP #### [address] [address] Lymphocyte, Absolute 1.6 10 3/mcL Normal 0.9-4.3 [facility] Comment on above: Performed By: #### T SH, FT3, JUANCARLOS, LD, FT4, ADIFF, GFR, ANEU, CBC, CMP #### [address] [address] Lymphocytes/100 WBC (Bld) 16.1 % Low 20.0-40.0 [facility] Comment on above: Performed By: #### T SH, FT3, JUANCARLOS, LD, FT4, ADIFF, GFR, ANEU, CBC, CMP #### [address] [address] Monocyte, Absolute 0.7 10 3/mcL Normal 0.1-1.4 [facility] Comment on above: Performed By: #### T SH, FT3, JUANCARLOS, LD, FT4, ADIFF, GFR, ANEU, CBC, CMP #### [address] [address] Monocytes/100 WBC (Bld) 6.6 % Normal 2.0-13.0 [facility] Comment on above: Performed By: #### T SH, FT3, JUANCARLOS, LD, FT4, ADIFF, GFR, ANEU, CBC, CMP #### [address] [address] Neutrophils/100 WBC (Bld) 69.2 % Normal 50.0-75.0 [facility] Comment on above: Performed By: #### T SH, FT3, JUANCARLOS, LD, FT4, ADIFF, GFR, ANEU, CBC, CMP #### [address] [address] .GFRon 09-17-2024 Estimated Glomerular Filtration Rate 55 ml/min/1.73sqm Normal [facility] Comment on above: Result Comment: Stages [...] FT4, ADIFF, GFR, ANEU, CBC, CMP #### [place] [address] .NEUABSon 09-17-2024 Neutrophil, Absolute 6.8 10 3/mcL Normal 2.3-8.1 [facility] Comment on above: Performed By: #### T SH, FT3, JUANCARLOS, LD, FT4, ADIFF, GFR, ANEU, CBC, CMP #### [place] [address] CBCon 09-17-2024 Erythrocyte distribution width (RBC) [Ratio] 17.0 % High 11.5-15.5 [facility] Comment on above: Performed By: #### T SH, FT3, JUANCARLOS, LD, FT4, ADIFF, GFR, ANEU, CBC, CMP #### [place] [address] Hematocrit (Bld) [Volume fraction] 36.5 % Low 40.0-52.0 [facility] Comment on above: Performed By: #### T SH, FT3, JUANCARLOS, LD, FT4, ADIFF, GFR, ANEU, CBC, CMP #### [place] [address] Hgb 12.2 G/dL Low 13.0-17.5 [facility] Comment on above: Performed By: #### T SH, FT3, JUANCARLOS, LD, FT4, ADIFF, GFR, ANEU, CBC, CMP #### [place] [address] MCH (RBC) [Entitic mass] 29.7 pg Normal 27.0-33.0 [facility] Comment on above: Performed By: #### T SH, FT3, JUANCARLOS, LD, FT4, ADIFF, GFR, ANEU, CBC, CMP #### [place] [address] MCHC 33.4 G/dL Normal 32.0-36.0 [facility] Comment on above: Performed By: #### T SH, FT3, JUANCARLOS, LD, FT4, ADIFF, GFR, ANEU, CBC, CMP #### [place] [address] MCV (RBC) [Entitic vol] 88.8 fL Normal 81.0-100.0 [facility] Comment on above: Performed By: #### T SH, FT3, JUANCARLOS, LD, FT4, ADIFF, GFR, ANEU, CBC, CMP #### [place] [address] Platelet 288 10 3/mcL Normal 150-450 [facility] Comment on above: Performed By: #### T SH, FT3, JUANCARLOS, LD, FT4, ADIFF, GFR, ANEU, CBC, CMP #### [place] [address] Platelet mean volume (Bld) [Entitic vol] 7.3 fL Normal 6.4-10.5 [facility] Comment on above: Performed By: #### T SH, FT3, JUANCARLOS, LD, FT4, ADIFF, GFR, ANEU, CBC, CMP #### [place] [address] RBC 4.11 10 6/mcL Low 4.50-6.00 [facility] Comment on above: Performed By: #### T SH, FT3, JUANCARLOS, LD, FT4, ADIFF, GFR, ANEU, CBC, CMP #### [place] [address] WBC 9.8 10 3/mcL Normal 4.5-10.8 [facility] Comment on above: Performed By: #### T SH, FT3, JUANCARLOS, LD, FT4, ADIFF, GFR, ANEU, CBC, CMP #### [place] [address] CMPon 09-17-2024 Albumin Level 3.3 G/dL Normal 3.2-4.8 [facility] Comment on above: Performed By: #### T SH, FT3, JUANCARLOS, LD, FT4, ADIFF, GFR, ANEU, CBC, CMP #### [place] [address] Albumin/Globulin [Mass ratio] 1.1 {ratio} Normal 0.9-1.6 [facility] Comment on above: Performed By: #### T SH, FT3, JUANCARLOS, LD, FT4, ADIFF, GFR, ANEU, CBC, CMP #### [place] [address] ALP [Catalytic activity/Vol] 94 U/L Normal 38-126 [facility] Comment on above: Performed By: #### T SH, FT3, JUANCARLOS, LD, FT4, ADIFF, GFR, ANEU, CBC, CMP #### [place] [id number] ALT [Catalytic activity/Vol] 9 U/L Low 12-55 [facility] Comment on above: Performed By: #### T SH, FT3, JUANCARLOS, LD, FT4, ADIFF, GFR, ANEU, CBC, CMP #### [place] [id number] AST [Catalytic activity/Vol] 11 U/L Normal 8-34 [facility] Comment on above: Performed By: #### T SH, FT3, JUANCARLOS, LD, FT4, ADIFF, GFR, ANEU, CBC, CMP #### [place] [address] Bili Total 0.40 mg/dL Normal 0.20-1.20 [facility] Comment on above: Result Comment: Use of this assay is not recommended for patients undergoing treatment with eltrombopag due to the potential for falsely elevated results. Performed By: #### T SH, FT3, JUANCARLOS, LD, FT4, ADIFF, GFR, ANEU, CBC, CMP #### [place] [address] BUN/Creatinine Ratio 13.4 ratio Normal 10.0-22.0 [facility] Comment on above: Performed By: #### T SH, FT3, JUANCARLOS, LD, FT4, ADIFF, GFR, ANEU, CBC, CMP #### [address] [address] Calcium [Mass/Vol] 8.4 mg/dL Low 8.7-10.4 [facility] Comment on above: Performed By: #### T SH, FT3, JUANCARLOS, LD, FT4, ADIFF, GFR, ANEU, CBC, CMP #### [address] [address] Chloride [Moles/Vol] 106 mmol/L Normal 98-110 [facility] Comment on above: Performed By: #### T SH, FT3, JUANCARLOS, LD, FT4, ADIFF, GFR, ANEU, CBC, CMP #### [address] [address] CO2 [Moles/Vol] 25 mmol/L Normal 22-32 [facility] Comment on above: Performed By: #### T SH, FT3, JUANCARLOS, LD, FT4, ADIFF, GFR, ANEU, CBC, CMP #### [address] [address] Creatinine [Mass/Vol] 1.57 mg/dL High 0.60-1.40 [facility] Comment on above: Result Comment: Test ing performed on [employer] analyzer using enzymatic creatinine methodology. Performed By: #### T SH, FT3, JUANCARLOS, LD, FT4, ADIFF, GFR, ANEU, CBC, CMP #### [place] [id number] Electrolyte Balance 10.0 mEq/L Normal 4.0-15.0 [facility] Comment on above: Performed By: #### T SH, FT3, JUANCARLOS, LD, FT4, ADIFF, GFR, ANEU, CBC, CMP #### [place] [id number] Globulin 2.9 G/dL Normal 2.5-4.2 [facility] Comment on above: Performed By: #### T SH, FT3, JUANCARLOS, LD, FT4, ADIFF, GFR, ANEU, CBC, CMP #### [address] [address] Glucose [Mass/Vol] 130 mg/dL High 70-110 [facility] Comment on above: Performed By: #### T SH, FT3, JUANCARLOS, LD, FT4, ADIFF, GFR, ANEU, CBC, CMP #### [address] [address] Potassium [Moles/Vol] 3.6 mmol/L Normal 3.5-5.0 [facility] Comment on above: Performed By: #### T SH, FT3, JUANCARLOS, LD, FT4, ADIFF, GFR, ANEU, CBC, CMP #### [address] [address] Sodium [Moles/Vol] 141 mmol/L Normal 136-145 [facility] Comment on above: Performed By: #### T SH, FT3, JUANCARLOS, LD, FT4, ADIFF, GFR, ANEU, CBC, CMP #### [address] [address] Total Protein 6.2 G/dL Normal 5.7-8.2 [facility] Comment on above: Performed By: #### T SH, FT3, JUANCARLOS, LD, FT4, ADIFF, GFR, ANEU, CBC, CMP #### [place] [id number] Urea nitrogen [Mass/Vol] 21.0 mg/dL Normal 8.0-22.0 [facility] Comment on above: Performed By: #### T SH, FT3, JUANCARLOS, LD, FT4, ADIFF, GFR, ANEU, CBC, CMP #### [address] [address] CORTon 09-17-2024 Cortisol Level 15.6 mcg/dL Normal [facility] Comment on above: Result Comment: Juancarlos isol AM Reference Range 6.5-26.0 mcg/dL Cortisol PM Reference Range 3.5-15.0 mcg/dL Performed By: #### T SH, FT3, JUANCARLOS, LD, FT4, ADIFF, GFR, ANEU, CBC, CMP #### [facility] [address] [place] [address] FT3on 09-17-2024 Free T3 [Mass/Vol] 3.84 pg/mL Normal 2.30-4.20 [facility] Comment on above: Performed By: #### T SH, FT3, JUANCARLOS, LD, FT4, ADIFF, GFR, ANEU, CBC, CMP #### [place] [id number] [place] [address] FT4on 09-17-2024 Free T4 [Mass/Vol] 1.51 ng/dL Normal 0.89-1.76 [facility] Comment on above: Result Comment: No te - New Reference Range in effect 19 Performed By: #### T SH, FT3, JUANCARLOS, LD, FT4, ADIFF, GFR, ANEU, CBC, CMP #### [address] [address] LABORATORYOrdered By: SYSTEM SYSTEM on 09-17-2024 Albumin [...] above: Interpretive Data: T esting performed on [employer] analyzer using enzymatic creatinine methodology. Electrolyte Balance [...] TSHon 09-17-2024 TSH 2.913 mIU/mL Normal 0.550-4.780 [facility] Comment on above: Performed By: #### T SH, FT3, JUANCARLOS, LD, FT4, ADIFF, GFR, ANEU, CBC, CMP #### [place] [address] .Auto Diffon 08-06-2024 Basophil, Absolute 0.1 10 3/mcL Normal 0.0-0.3 [facility] Comment on above: Performed By: #### C ORT #### [place] [address] #### ADIFF, LD, FT3, TSH, GFR, ANEU, FT4, CMP, CBC #### [address] [address] Basophils/100 WBC (Bld) 0.6 % Normal 0.0-2.5 [facility] Comment on above: Performed By: #### C ORT #### [place] [address] #### ADIFF, LD, FT3, TSH, GFR, ANEU, FT4, CMP, CBC #### [address] [address] Eosinophil, Absolute 0.7 10 3/mcL Normal 0.0-0.7 [facility] Comment on above: Performed By: #### C ORT #### [place] [address] #### ADIFF, LD, FT3, TSH, GFR, ANEU, FT4, CMP, CBC #### [address] [address] Eosinophils/100 WBC (Bld) 6.6 % High 0.0-6.0 [facility] Comment on above: Performed By: #### C ORT #### [place] [address] #### ADIFF, LD, FT3, TSH, GFR, ANEU, FT4, CMP, CBC #### [address] [address] Lymphocyte, Absolute 1.8 10 3/mcL Normal 0.9-4.3 [facility] Comment on above: Performed By: #### C ORT #### [place] [address] #### ADIFF, LD, FT3, TSH, GFR, ANEU, FT4, CMP, CBC #### [address] [address] Lymphocytes/100 WBC (Bld) 17.7 % Low 20.0-40.0 [facility] Comment on above: Performed By: #### C ORT #### [place] [address] #### ADIFF, LD, FT3, TSH, GFR, ANEU, FT4, CMP, CBC #### [address] [address] Monocyte, Absolute 0.9 10 3/mcL Normal 0.1-1.4 [facility] Comment on above: Performed By: #### C ORT #### [place] [address] #### ADIFF, LD, FT3, TSH, GFR, ANEU, FT4, CMP, CBC #### [address] [address] Monocytes/100 WBC (Bld) 8.7 % Normal 2.0-13.0 [facility] Comment on above: Performed By: #### C ORT #### [place] [address] #### ADIFF, LD, FT3, TSH, GFR, ANEU, FT4, CMP, CBC #### [address] [address] Neutrophils/100 WBC (Bld) 66.4 % Normal 50.0-75.0 [facility] Comment on above: Performed By: #### C ORT #### [address] [address] #### ADIFF, LD, FT3, TSH, GFR, ANEU, FT4, CMP, CBC #### [address] [address] .GFRon 08-06-2024 Estimated Glomerular Filtration Rate 46 ml/min/1.73sqm Normal [facility] Comment on above: Result Comment: Stages of [...] Performed By: #### U ESTEFANY Valenzuela #### [address] [address] .NEUABSon 08-06-2024 Neutrophil, Absolute 6.7 10 3/mcL Normal 2.3-8.1 [facility] Comment on above: Performed By: #### C ORT #### [address] [address] #### ADIFF, LD, FT3, TSH, GFR, ANEU, FT4, CMP, CBC #### [address] [address] CBCon 08-06-2024 Erythrocyte distribution width (RBC) [Ratio] 17.7 % High 11.5-15.5 [facility] Comment on above: Performed By: #### C ORT #### [address] [address] #### ADIFF, LD, FT3, TSH, GFR, ANEU, FT4, CMP, CBC #### [address] [address] Hematocrit (Bld) [Volume fraction] 38.8 % Low 40.0-52.0 [facility] Comment on above: Performed By: #### C ORT #### [place] [address] #### ADIFF, LD, FT3, TSH, GFR, ANEU, FT4, CMP, CBC #### [place] [address] Hgb 12.7 G/dL Low 13.0-17.5 [facility] Comment on above: Performed By: #### C ORT #### [place] [address] #### ADIFF, LD, FT3, TSH, GFR, ANEU, FT4, CMP, CBC #### [place] [address] MCH (RBC) [Entitic mass] 31.7 pg Normal 27.0-33.0 [facility] Comment on above: Performed By: #### C ORT #### [place] [address] #### ADIFF, LD, FT3, TSH, GFR, ANEU, FT4, CMP, CBC #### [place] [address] MCHC 32.7 G/dL Normal 32.0-36.0 [facility] Comment on above: Performed By: #### C ORT #### [place] [address] #### ADIFF, LD, FT3, TSH, GFR, ANEU, FT4, CMP, CBC #### [place] [id number] MCV (RBC) [Entitic vol] 96.7 fL Normal 81.0-100.0 [facility] Comment on above: Performed By: #### C ORT #### [place] [address] #### ADIFF, LD, FT3, TSH, GFR, ANEU, FT4, CMP, CBC #### [address] [address] Platelet 286 10 3/mcL Normal 150-450 [facility] Comment on above: Performed By: #### C ORT #### [place] [address] #### ADIFF, LD, FT3, TSH, GFR, ANEU, FT4, CMP, CBC #### [address] [address] Platelet mean volume (Bld) [Entitic vol] 8.0 fL Normal 6.4-10.5 [facility] Comment on above: Performed By: #### C ORT #### [place] [address] #### ADIFF, LD, FT3, TSH, GFR, ANEU, FT4, CMP, CBC #### [address] [address] RBC 4.01 10 6/mcL Low 4.50-6.00 [facility] Comment on above: Performed By: #### C ORT #### [place] [address] #### ADIFF, LD, FT3, TSH, GFR, ANEU, FT4, CMP, CBC #### [address] [address] WBC 10.0 10 3/mcL Normal 4.5-10.8 [facility] Comment on above: Performed By: #### C ORT #### [place] [address] #### ADIFF, LD, FT3, TSH, GFR, ANEU, FT4, CMP, CBC #### [address] [address] CMPon 08-06-2024 Albumin Level 3.4 G/dL Low 3.5-5.0 [facility] Comment on above: Performed By: #### U Nicolas UAMICAO #### [address] [address] Albumin/Globulin [Mass ratio] 0.9 {ratio} Low 1.1-2.5 [facility] Comment on above: Performed By: #### U A, UAMICAO #### [address] [address] ALP [Catalytic activity/Vol] 70 U/L Normal 40-135 [facility] Comment on above: Performed By: #### U Nicolas UAMICAO #### [address] [address] ALT [Catalytic activity/Vol] 36 U/L Normal 16-63 [facility] Comment on above: Performed By: #### U Nicolas UAMICAO #### [address] [address] AST [Catalytic activity/Vol] 26 U/L Normal 10-40 [facility] Comment on above: Performed By: #### Nabil Valenzuela UAMICAO #### [address] [address] Bili Total 0.4 mg/dL Normal 0.2-1.0 [facility] Comment on above: Result Comment: Use of this assay is not recommended for patients undergoing treatment with eltrombopag due to the potential for falsely elevated results. Performed By: #### U Nicolas UAMICAO #### [address] [address] BUN/Creatinine Ratio 21 ratio Normal 7-27 [facility] Comment on above: Performed By: #### U Nicolas UAMICAO #### [address] [address] Calcium [Mass/Vol] 8.9 mg/dL Normal 8.4-10.2 [facility] Comment on above: Performed By: #### U Nicolas, UAMICAO #### [address] [address] Chloride [Moles/Vol] 106 mmol/L Normal 98-107 [facility] Comment on above: Performed By: #### U A, UAMICAO #### [address] [address] CO2 [Moles/Vol] 29 mmol/L Normal 22-29 [facility] Comment on above: Performed By: #### U A, UAMICAO #### [address] [address] Creatinine [Mass/Vol] 1.84 mg/dL High 0.67-1.17 [facility] Comment on above: Performed By: #### U A, UAMICAO #### [address] [address] Electrolyte Balance 7.0 mEq/L Normal 4.0-15.0 [facility] Comment on above: Performed By: #### U A, UAMICAO #### [address] [address] Globulin 3.9 G/dL Normal 2.7-4.4 [facility] Comment on above: Performed By: #### U A, UAMICAO #### [address] [address] Glucose [Mass/Vol] 111 mg/dL High 70-105 [facility] Comment on above: Performed By: #### U A, UAMICAO #### [address] [address] Potassium [Moles/Vol] 4.0 mmol/L Normal 3.5-5.1 [facility] Comment on above: Performed By: #### U A, UAMICAO #### [address] [address] Sodium [Moles/Vol] 142 mmol/L Normal 136-145 [facility] Comment on above: Performed By: #### U A, UAMICAO #### [address] [address] Total Protein 7.3 G/dL Normal 6.4-8.2 [facility] Comment on above: Performed By: #### ESTEFANY Ellis #### [address] [address] Urea nitrogen [Mass/Vol] 39 mg/dL High 7-18 [facility] Comment on above: Performed By: #### U ESTEFANY Valenzuela #### [address] [address] CORTon 08-06-2024 Cortisol Level 14.6 mcg/dL Normal [facility] Comment on above: Result Comment: Juancarlos isol AM Reference Range 6.5-26.0 mcg/dL Cortisol PM Reference Range 3.5-15.0 mcg/dL Performed By: #### ESTEFANY Ellis #### [place] [id number] FT3on 08-06-2024 Free T3 [Mass/Vol] 3.43 pg/mL Normal 2.30-4.00 [facility] Comment on above: Performed By: #### C ORT #### [place] [address] #### ADIFF, LD, FT3, TSH, GFR, ANEU, FT4, CMP, CBC #### [place] [id number] FT4on 08-06-2024 Free T4 [Mass/Vol] 1.09 ng/dL Normal 0.76-1.46 [facility] Comment on above: Performed By: #### C ORT #### [place] [address] #### ADIFF, LD, FT3, TSH, GFR, ANEU, FT4, CMP, CBC #### [address] [address] LABORATORYOrdered By: SYSTEM SYSTEM on 08-06-2024 Albumin [...] LDHon 08-06-2024 LDH 155 U/L Normal 85-227 [facility] Comment on above: Performed By: #### C ORT #### [place] [address] #### ADIFF, LD, FT3, TSH, GFR, ANEU, FT4, CMP, CBC #### [address] [address] TSHon 08-06-2024 TSH Qn 0.62 m[IU]/L Normal 0.36-3.74 [facility] Comment on above: Performed By: #### C ORT #### [place] [address] #### ADIFF, LD, FT3, TSH, GFR, ANEU, FT4, CMP, CBC #### [address] [address] .Auto Diffon 08-01-2024 Basophil, Absolute 0.0 10 3/mcL Normal 0.0-0.3 [facility] Comment on above: Performed By: #### T SH, FT3, JUANCARLOS, LD, FT4, ADIFF, GFR, ANEU, CBC, CMP #### [address] [address] Basophils/100 WBC (Bld) 0.2 % Normal 0.0-2.5 [facility] Comment on above: Performed By: #### T SH, FT3, JUANCARLOS, LD, FT4, ADIFF, GFR, ANEU, CBC, CMP #### [address] [address] Eosinophil, Absolute 0.0 10 3/mcL Normal 0.0-0.7 [facility] Comment on above: Performed By: #### T SH, FT3, JUANCARLOS, LD, FT4, ADIFF, GFR, ANEU, CBC, CMP #### [address] [address] Eosinophils/100 WBC (Bld) 0.2 % Normal 0.0-6.0 [facility] Comment on above: Performed By: #### T SH, FT3, JUANCARLOS, LD, FT4, ADIFF, GFR, ANEU, CBC, CMP #### [address] [address] Lymphocyte, Absolute 1.7 10 3/mcL Normal 0.9-4.3 [facility] Comment on above: Performed By: #### T SH, FT3, JUANCARLOS, LD, FT4, ADIFF, GFR, ANEU, CBC, CMP #### [address] [address] Lymphocytes/100 WBC (Bld) 17.0 % Low 20.0-40.0 [facility] Comment on above: Performed By: #### T SH, FT3, JUANCARLOS, LD, FT4, ADIFF, GFR, ANEU, CBC, CMP #### [address] [address] Monocyte, Absolute 0.5 10 3/mcL Normal 0.1-1.4 [facility] Comment on above: Performed By: #### T SH, FT3, JUANCARLOS, LD, FT4, ADIFF, GFR, ANEU, CBC, CMP #### [address] [address] Monocytes/100 WBC (Bld) 4.8 % Normal 2.0-13.0 [facility] Comment on above: Performed By: #### T SH, FT3, JUANCARLOS, LD, FT4, ADIFF, GFR, ANEU, CBC, CMP #### [address] [address] Neutrophils/100 WBC (Bld) 77.8 % High 50.0-75.0 [facility] Comment on above: Performed By: #### T SH, FT3, JUANCARLOS, LD, FT4, ADIFF, GFR, ANEU, CBC, CMP #### [address] [address] .GFRon 08-01-2024 Estimated Glomerular Filtration Rate 53 ml/min/1.73sqm Normal [facility] Comment on above: Result Comment: Stages [...] FT4, ADIFF, GFR, ANEU, CBC, CMP #### [address] [address] .NEUABSon 08-01-2024 Neutrophil, Absolute 7.9 10 3/mcL Normal 2.3-8.1 [facility] Comment on above: Performed By: #### T SH, FT3, JUANCARLOS, LD, FT4, ADIFF, GFR, ANEU, CBC, CMP #### [address] [address] BMPon 08-01-2024 BUN/Creatinine Ratio 11.7 ratio Normal 10.0-22.0 [facility] Comment on above: Performed By: #### T SH, FT3, JUANCARLOS, LD, FT4, ADIFF, GFR, ANEU, CBC, CMP #### [address] [address] Calcium [Mass/Vol] 8.4 mg/dL Low 8.7-10.4 [facility] Comment on above: Performed By: #### T SH, FT3, JUANCARLOS, LD, FT4, ADIFF, GFR, ANEU, CBC, CMP #### [place] [id number] Chloride [Moles/Vol] 111 mmol/L High 98-110 [facility] Comment on above: Performed By: #### T SH, FT3, JUANCARLOS, LD, FT4, ADIFF, GFR, ANEU, CBC, CMP #### [place] [id number] CO2 [Moles/Vol] 21 mmol/L Low 22-32 [facility] Comment on above: Performed By: #### T SH, FT3, JUANCARLOS, LD, FT4, ADIFF, GFR, ANEU, CBC, CMP #### [place] [id number] Creatinine [Mass/Vol] 1.62 mg/dL High 0.60-1.40 [facility] Comment on above: Result Comment: Test ing performed on [employer] analyzer using enzymatic creatinine methodology. Performed By: #### T SH, FT3, JUANCARLOS, LD, FT4, ADIFF, GFR, ANEU, CBC, CMP #### [address] [address] Electrolyte Balance 12.0 mEq/L Normal 4.0-15.0 [facility] Comment on above: Performed By: #### T SH, FT3, JUANCARLOS, LD, FT4, ADIFF, GFR, ANEU, CBC, CMP #### [address] [address] Glucose [Mass/Vol] 128 mg/dL High 70-110 [facility] Comment on above: Performed By: #### T SH, FT3, JUANCARLOS, LD, FT4, ADIFF, GFR, ANEU, CBC, CMP #### [place] [address] Potassium [Moles/Vol] 4.2 mmol/L Normal 3.5-5.0 [facility] Comment on above: Performed By: #### T SH, FT3, JUANCARLOS, LD, FT4, ADIFF, GFR, ANEU, CBC, CMP #### [place] [address] Sodium [Moles/Vol] 144 mmol/L Normal 136-145 [facility] Comment on above: Performed By: #### T SH, FT3, JUANCARLOS, LD, FT4, ADIFF, GFR, ANEU, CBC, CMP #### [place] [address] Urea nitrogen [Mass/Vol] 19.0 mg/dL Normal 8.0-22.0 [facility] Comment on above: Performed By: #### T SH, FT3, JUANCARLOS, LD, FT4, ADIFF, GFR, ANEU, CBC, CMP #### [place] [address] CBCon 08-01-2024 Erythrocyte distribution width (RBC) [Ratio] 16.5 % High 11.5-15.5 [facility] Comment on above: Performed By: #### T SH, FT3, JUANCARLOS, LD, FT4, ADIFF, GFR, ANEU, CBC, CMP #### [place] [address] Hematocrit (Bld) [Volume fraction] 32.7 % Low 40.0-52.0 [facility] Comment on above: Performed By: #### T SH, FT3, JUANCARLOS, LD, FT4, ADIFF, GFR, ANEU, CBC, CMP #### [place] [address] Hgb 11.0 G/dL Low 13.0-17.5 [facility] Comment on above: Performed By: #### T SH, FT3, JUANCARLOS, LD, FT4, ADIFF, GFR, ANEU, CBC, CMP #### [place] [address] MCH (RBC) [Entitic mass] 31.7 pg Normal 27.0-33.0 [facility] Comment on above: Performed By: #### T SH, FT3, JUANCARLOS, LD, FT4, ADIFF, GFR, ANEU, CBC, CMP #### [place] [address] MCHC 33.5 G/dL Normal 32.0-36.0 [facility] Comment on above: Performed By: #### T SH, FT3, JUANCARLOS, LD, FT4, ADIFF, GFR, ANEU, CBC, CMP #### [place] [address] MCV (RBC) [Entitic vol] 94.7 fL Normal 81.0-100.0 [facility] Comment on above: Performed By: #### T SH, FT3, JUANCARLOS, LD, FT4, ADIFF, GFR, ANEU, CBC, CMP #### [place] [address] Platelet 201 10 3/mcL Normal 150-450 [facility] Comment on above: Performed By: #### T SH, FT3, JUANCARLOS, LD, FT4, ADIFF, GFR, ANEU, CBC, CMP #### [place] [address] Platelet mean volume (Bld) [Entitic vol] 7.3 fL Normal 6.4-10.5 [facility] Comment on above: Performed By: #### T SH, FT3, JUANCARLOS, LD, FT4, ADIFF, GFR, ANEU, CBC, CMP #### [place] [address] RBC 3.45 10 6/mcL Low 4.50-6.00 [facility] Comment on above: Performed By: #### T SH, FT3, JUANCARLOS, LD, FT4, ADIFF, GFR, ANEU, CBC, CMP #### [place] [address] WBC 10.1 10 3/mcL Normal 4.5-10.8 [facility] Comment on above: Performed By: #### T SH, FT3, JUANCARLOS, LD, FT4, ADIFF, GFR, ANEU, CBC, CMP #### [place] [address] Final Surgical Pathology Rep reny 08-01-2024 Final Surgical Pathology Report . Pathology Reports Accession: Collected Date/Time: Received Date/Time: Pathologist: [id number] 07/30/2024 17:34 EDT 07/31/2024 08:34 EDT DEMI [...] All parts labelled with patient name and [id number] Received in formalin labelled "right thigh abscess" Are 3 irregular patel wrinkled portions of skin ranging from 2 x 1 x 0.4 cm to 4.1 x 2.1 x 1.1 cm. The excision margins are inked black. RS-1 Eduin Palacios, Pathologists' Psychotherapist (ASCP) Performed by EDUIN PALACIOS MICROSCOPIC DESCRIPTION: The microscopic examination is performed, except in the case of Gross Only. Verified by Pathology Report verified by [facility] DEMI LONG Sign out Date: 08/01/2024 11:25 Performing Lab: [facility], [address] [place] [address] Pathology Dept Disclaimer If ancillary studies were utilized, the following Laboratory Developed Test (LDT) disclaimer will apply: Under CLIA requirements, [facility] is qualified to perform high complexity testing. For all ancillary stains, positive and negative controls stain appropriately. Performance characteristics of immunohistochemical and chromogenic in-situ hybridization tests have been determined by [facility]. These tests are used for clinical purposes, They should not be regarded as investigational or for research. Normal [facility] Final Surgical Pathology Report Event Display: SP Gross All parts labelled with patient name and [id number] Received in formalin labelled "right thigh abscess" Are 3 irregular patel wrinkled portions of skin ranging from 2 x 1 x 0.4 cm to 4.1 x 2.1 x 1.1 cm. The excision margins are inked black. RS-1 Eduin Palacios, Pathologists' Psychotherapist (ASCP) Performed by DEMI PHAM MD:VERIFY; Authored Date: [facility] Final Surgical Pathology Report Event Display: SP Signature Pathology Report verified by [facility] DEMI LONG Sign out Date: 08/01/2024 11:25 Performing Lab: [facility], [address] [place] [address] Pathology Dept DEMI LONG MD:VERIFY; Authored Date: [id number] [facility] Final Surgical Pathology Report Event Display: SP Specimen ARIGHT THIGH ABSCESS DEMI LONG MD:VERIFY; Authored Date: [id number] [facility] Final Surgical Pathology Report Event Display: SP Disclaimer If ancillary studies were utilized, the following Laboratory Developed Test (LDT) disclaimer will apply: Under CLIA requirements, [facility] is qualified to perform high complexity testing. For all ancillary stains, positive and negative controls stain appropriately. Performance characteristics of immunohistochemical and chromogenic in-situ hybridization tests have been determined by [facility]. These tests are used for clinical purposes, They should not be regarded as investigational or for research. DEMI LONG MD:VERIFY; Authored Date: [facility] Final Surgical Pathology Report Event Display: SP Micro The microscopic examination is performed, except in the case of Gross Only. DEMI LONG MD:VERIFY; Authored Date: [facility] Final Surgical Pathology Report Event Display: SP Dx RIGHT THIGH ABSCESS: - SKIN AND SUBCUTANEOUS TISSUE WITH ORGANIZING ACUTE AND CHRONIC INFLAMMATION - SEE COMMENT Comment: In some areas, inflammation surrounds trapped squamous epithelium in the dermis, suggestive of benign inclusion cyst. Clinical correlation recommended. DEMI LONG MD:VERIFY; Authored Date: [facility] LABORATORYOrdered By: SYSTEM SYSTEM on 08-01-2024 Basophils [...] above: Interpretive Data: T esting performed on [employer] analyzer using enzymatic creatinine methodology. Electrolyte Balance [...] Comment on above: Interpretive Data: Cindy briggs [employer] (CHEST, 1991, 102:312S-25S) [...] Coag (PPP) [Relative time] 1.3 {INR} Normal [facility] Comment on above: Result Comment: [employer] (CHEST, 1991, 102:312S-25S) recommended therapeutic range for oral anticoagulant therapy is: LOW RISK: Prophylaxis of venous thrombosis INR: 2.0-3.0 Treatment of pulmonary embolism 2.0-3.0 Prevention of systemic embolism 2.0-3.0 HIGH RISK: Mechanical prosthetic valves 2.5-3.5 Performed By: #### T SH, FT3, JUANCARLOS, LD, FT4, ADIFF, GFR, ANEU, CBC, CMP #### [place] [id number] [place] [address] PT Coag (PPP) [Time] 14.6 s High 9.0-14.4 [facility] Comment on above: Result Comment: Effe ctive 08/28/07, Protime results may be affected by some antibiotics (i.e. Ciprofloxacin, Azithromycin, Bactrim) which may potentiate the action of oral anticoagulants, with further increases in Protime/INR. Performed By: #### T SH, FT3, JUANCARLOS, LD, FT4, ADIFF, GFR, ANEU, CBC, CMP #### [address] [address] .Auto Diffon 07-31-2024 Basophil, Absolute 0.0 10 3/mcL Normal 0.0-0.3 [facility] Comment on above: Performed By: #### T SH, FT3, JUANCARLOS, LD, FT4, ADIFF, GFR, ANEU, CBC, CMP #### [address] [address] Basophils/100 WBC (Bld) 0.2 % Normal 0.0-2.5 [facility] Comment on above: Performed By: #### T SH, FT3, JUANCARLOS, LD, FT4, ADIFF, GFR, ANEU, CBC, CMP #### [address] [address] Eosinophil, Absolute 0.0 10 3/mcL Normal 0.0-0.7 [facility] Comment on above: Performed By: #### T SH, FT3, JUANCARLOS, LD, FT4, ADIFF, GFR, ANEU, CBC, CMP #### [address] [address] Eosinophils/100 WBC (Bld) 0.0 % Normal 0.0-6.0 [facility] Comment on above: Performed By: #### T SH, FT3, JUANCARLOS, LD, FT4, ADIFF, GFR, ANEU, CBC, CMP #### [address] [address] Lymphocyte, Absolute 0.7 10 3/mcL Low 0.9-4.3 [facility] Comment on above: Performed By: #### T SH, FT3, JUANCARLOS, LD, FT4, ADIFF, GFR, ANEU, CBC, CMP #### [address] [address] Lymphocytes/100 WBC (Bld) 6.4 % Low 20.0-40.0 [facility] Comment on above: Performed By: #### T SH, FT3, JUANCARLOS, LD, FT4, ADIFF, GFR, ANEU, CBC, CMP #### [address] [address] Monocyte, Absolute 0.1 10 3/mcL Normal 0.1-1.4 [facility] Comment on above: Performed By: #### T SH, FT3, JUANCARLOS, LD, FT4, ADIFF, GFR, ANEU, CBC, CMP #### [address] [address] Monocytes/100 WBC (Bld) 1.1 % Low 2.0-13.0 [facility] Comment on above: Performed By: #### T SH, FT3, JUANCARLOS, LD, FT4, ADIFF, GFR, ANEU, CBC, CMP #### [address] [address] Neutrophils/100 WBC (Bld) 92.3 % High 50.0-75.0 [facility] Comment on above: Performed By: #### T SH, FT3, JUANCARLOS, LD, FT4, ADIFF, GFR, ANEU, CBC, CMP #### [place] [id number] .GFRon 07-31-2024 Estimated Glomerular Filtration Rate 57 ml/min/1.73sqm Normal [facility] Comment on above: Result Comment: Stages [...] FT4, ADIFF, GFR, ANEU, CBC, CMP #### [place] [id number] .NEUABSon 07-31-2024 Neutrophil, Absolute 9.7 10 3/mcL High 2.3-8.1 [facility] Comment on above: Performed By: #### T SH, FT3, JUANCARLOS, LD, FT4, ADIFF, GFR, ANEU, CBC, CMP #### [address] [address] [facility] BUN/Creatinine Ratio 9.8 ratio Low 10.0-22.0 [facility] Comment on above: Performed By: #### T SH, FT3, JUANCARLOS, LD, FT4, ADIFF, GFR, ANEU, CBC, CMP #### [place] [address] Calcium [Mass/Vol] 8.8 mg/dL Normal 8.7-10.4 [facility] Comment on above: Performed By: #### T SH, FT3, JUANCARLOS, LD, FT4, ADIFF, GFR, ANEU, CBC, CMP #### [place] [address] Chloride [Moles/Vol] 111 mmol/L High 98-110 [facility] Comment on above: Performed By: #### T SH, FT3, JUANCARLOS, LD, FT4, ADIFF, GFR, ANEU, CBC, CMP #### [place] [id number] CO2 [Moles/Vol] 24 mmol/L Normal 22-32 [facility] Comment on above: Performed By: #### T SH, FT3, JUANCARLOS, LD, FT4, ADIFF, GFR, ANEU, CBC, CMP #### [place] [id number] Creatinine [Mass/Vol] 1.53 mg/dL High 0.60-1.40 [facility] Comment on above: Result Comment: Test ing performed on [employer] analyzer using enzymatic creatinine methodology. Performed By: #### T SH, FT3, JUANCARLOS, LD, FT4, ADIFF, GFR, ANEU, CBC, CMP #### [place] [address] Electrolyte Balance 4.0 mEq/L Normal 4.0-15.0 [facility] Comment on above: Performed By: #### T SH, FT3, JUANCARLOS, LD, FT4, ADIFF, GFR, ANEU, CBC, CMP #### [address] [address] Glucose [Mass/Vol] 114 mg/dL High 70-110 [facility] Comment on above: Performed By: #### T SH, FT3, JUANCARLOS, LD, FT4, ADIFF, GFR, ANEU, CBC, CMP #### [address] [address] Potassium [Moles/Vol] 5.8 mmol/L High 3.5-5.0 [facility] Comment on above: Performed By: #### T SH, FT3, JUANCARLOS, LD, FT4, ADIFF, GFR, ANEU, CBC, CMP #### [place] [phone] Sodium [Moles/Vol] 139 mmol/L Normal 136-145 [facility] Comment on above: Performed By: #### T SH, FT3, JUANCARLOS, LD, FT4, ADIFF, GFR, ANEU, CBC, CMP #### [place] [phone] Urea nitrogen [Mass/Vol] 15.0 mg/dL Normal 8.0-22.0 [facility] Comment on above: Performed By: #### T SH, FT3, JUANCARLOS, LD, FT4, ADIFF, GFR, ANEU, CBC, CMP #### [address] [address] CBCon 07-31-2024 Erythrocyte distribution width (RBC) [Ratio] 16.5 % High 11.5-15.5 [facility] Comment on above: Performed By: #### T SH, FT3, JUANCARLOS, LD, FT4, ADIFF, GFR, ANEU, CBC, CMP #### [place] [phone] Hematocrit (Bld) [Volume fraction] 41.1 % Normal 40.0-52.0 [facility] Comment on above: Performed By: #### T SH, FT3, JUANCARLOS, LD, FT4, ADIFF, GFR, ANEU, CBC, CMP #### [address] [address] Hgb 13.9 G/dL Normal 13.0-17.5 [facility] Comment on above: Performed By: #### T SH, FT3, JUANCARLOS, LD, FT4, ADIFF, GFR, ANEU, CBC, CMP #### [place] [address] MCH (RBC) [Entitic mass] 32.4 pg Normal 27.0-33.0 [facility] Comment on above: Performed By: #### T SH, FT3, JUANCARLOS, LD, FT4, ADIFF, GFR, ANEU, CBC, CMP #### [place] [address] MCHC 33.8 G/dL Normal 32.0-36.0 [facility] Comment on above: Performed By: #### T SH, FT3, JUANCARLOS, LD, FT4, ADIFF, GFR, ANEU, CBC, CMP #### [place] [address] MCV (RBC) [Entitic vol] 95.9 fL Normal 81.0-100.0 [facility] Comment on above: Performed By: #### T SH, FT3, JUANCARLOS, LD, FT4, ADIFF, GFR, ANEU, CBC, CMP #### [place] [address] Platelet 243 10 3/mcL Normal 150-450 [facility] Comment on above: Performed By: #### T SH, FT3, JUANCARLOS, LD, FT4, ADIFF, GFR, ANEU, CBC, CMP #### [place] [address] Platelet mean volume (Bld) [Entitic vol] 7.3 fL Normal 6.4-10.5 [facility] Comment on above: Performed By: #### T SH, FT3, JUANCARLOS, LD, FT4, ADIFF, GFR, ANEU, CBC, CMP #### [place] [address] RBC 4.29 10 6/mcL Low 4.50-6.00 [facility] Comment on above: Performed By: #### T SH, FT3, JUANCARLOS, LD, FT4, ADIFF, GFR, ANEU, CBC, CMP #### [address] [address] WBC 10.5 10 3/mcL Normal 4.5-10.8 [facility] Comment on above: Performed By: #### T SH, FT3, JUANCARLOS, LD, FT4, ADIFF, GFR, ANEU, CBC, CMP #### [address] [address] Amauri 07-31-2024 Potassium [Moles/Vol] 4.5 mmol/L Normal 3.5-5.0 [facility] Comment on above: Performed By: #### T SH, FT3, JUANCARLOS, LD, FT4, ADIFF, GFR, ANEU, CBC, CMP #### [address] [address] LABORATORYOrdered By: SYSTEM SYSTEM on 07-31-2024 Potassium [...] above: Interpretive Data: T esting performed on [employer] analyzer using enzymatic creatinine methodology. Electrolyte Balance [...] Estimated Glomerular Filtration Rate 67 ml/min/1.73sqm Normal [facility] Comment on above: Result Comment: Stages [...] FT4, ADIFF, GFR, ANEU, CBC, CMP #### [address] [address] APTTon 07-30-2024 aPTT Coag (Bld) [Time] 31.2 s Normal 25.0-35.0 [facility] Comment on above: Result Comment: For Heparin anticoagulation therapy, the recommended therapeutic range is: 54-77 seconds (APTT Correlation with Anti-Xa therapeutic range of 0.3-0.7 units/ml). PLEASE REFERENCE THE PHARMACY PROTOCOL FOR DOSING. Performed By: #### T SH, FT3, JUANCARLOS, LD, FT4, ADIFF, GFR, ANEU, CBC, CMP #### [address] [address] BMPon 07-30-2024 BUN/Creatinine Ratio 10.4 ratio Normal 10.0-22.0 [facility] Comment on above: Performed By: #### T SH, FT3, JUANCARLOS, LD, FT4, ADIFF, GFR, ANEU, CBC, CMP #### [place] [address] Calcium [Mass/Vol] 9.1 mg/dL Normal 8.7-10.4 [facility] Comment on above: Performed By: #### T SH, FT3, JUANCARLOS, LD, FT4, ADIFF, GFR, ANEU, CBC, CMP #### [place] [phone] Chloride [Moles/Vol] 110 mmol/L Normal 98-110 [facility] Comment on above: Performed By: #### T SH, FT3, JUANCARLOS, LD, FT4, ADIFF, GFR, ANEU, CBC, CMP #### [place] [phone] CO2 [Moles/Vol] 22 mmol/L Normal 22-32 [facility] Comment on above: Performed By: #### T SH, FT3, JUANCARLOS, LD, FT4, ADIFF, GFR, ANEU, CBC, CMP #### [place] [address] Creatinine [Mass/Vol] 1.34 mg/dL Normal 0.60-1.40 [facility] Comment on above: Result Comment: Test ing performed on [employer] analyzer using enzymatic creatinine methodology. Performed By: #### T SH, FT3, JUANCARLOS, LD, FT4, ADIFF, GFR, ANEU, CBC, CMP #### [place] [address] Electrolyte Balance 9.0 mEq/L Normal 4.0-15.0 [facility] Comment on above: Performed By: #### T SH, FT3, JUANCARLOS, LD, FT4, ADIFF, GFR, ANEU, CBC, CMP #### [place] [phone] Glucose [Mass/Vol] 96 mg/dL Normal 70-110 [facility] Comment on above: Performed By: #### T SH, FT3, JUANCARLOS, LD, FT4, ADIFF, GFR, ANEU, CBC, CMP #### [place] [id number] Potassium [Moles/Vol] 3.8 mmol/L Normal 3.5-5.0 [facility] Comment on above: Performed By: #### T SH, FT3, JUANCARLOS, LD, FT4, ADIFF, GFR, ANEU, CBC, CMP #### [place] [phone] Sodium [Moles/Vol] 141 mmol/L Normal 136-145 [facility] Comment on above: Performed By: #### T SH, FT3, JUANCARLOS, LD, FT4, ADIFF, GFR, ANEU, CBC, CMP #### [place] [id number] Urea nitrogen [Mass/Vol] 14.0 mg/dL Normal 8.0-22.0 [facility] Comment on above: Performed By: #### T SH, FT3, JUANCARLOS, LD, FT4, ADIFF, GFR, ANEU, CBC, CMP #### [place] [id number] [facility] Fibrinogen 488 mg/dL Normal 250-560 [facility] Comment on above: Performed By: #### T SH, FT3, JUANCARLOS, LD, FT4, ADIFF, GFR, ANEU, CBC, CMP #### [place] [id number] [facility] 07-30-2024 Hematocrit (Bld) [Volume fraction] 44.2 % Normal 40.0-52.0 [facility] Comment on above: Performed By: #### T SH, FT3, JUANCARLOS, LD, FT4, ADIFF, GFR, ANEU, CBC, CMP #### [place] [address] [place] [address] Hgb 14.7 G/dL Normal 13.0-17.5 [facility] Comment on above: Performed By: #### T SH, FT3, JUANCARLOS, LD, FT4, ADIFF, GFR, ANEU, CBC, CMP #### [address] [address] LABORATORYOrdered By: SYSTEM SYSTEM on 07-30-2024 Hematocrit [...] above: Interpretive Data: T esting performed on [employer] analyzer using enzymatic creatinine methodology. Electrolyte Balance [...] Comment on above: Interpretive Data: Cindy briggs [employer] (CHEST, 1991, 102:312S-25S) [...] 07-30-2024 Platelet 234 10 3/mcL Normal 150-450 [facility] Comment on above: Performed By: #### T SH, FT3, JUANCARLOS, LD, FT4, ADIFF, GFR, ANEU, CBC, CMP #### [address] [address] PROon 07-30-2024 INR Coag (PPP) [Relative time] 1.2 {INR} Normal [facility] Comment on above: Result Comment: [employer] (CHEST, 1991, 102:312S-25S) recommended therapeutic range for oral anticoagulant therapy is: LOW RISK: Prophylaxis of venous thrombosis INR: 2.0-3.0 Treatment of pulmonary embolism 2.0-3.0 Prevention of systemic embolism 2.0-3.0 HIGH RISK: Mechanical prosthetic valves 2.5-3.5 Performed By: #### T SH, FT3, JUANCARLOS, LD, FT4, ADIFF, GFR, ANEU, CBC, CMP #### [place] [id number] [place] [address] PT Coag (PPP) [Time] 13.2 s Normal 9.0-14.4 [facility] Comment on above: Result Comment: Effe ctive 08/28/07, Protime results may be affected by some antibiotics (i.e. Ciprofloxacin, Azithromycin, Bactrim) which may potentiate the action of oral anticoagulants, with further increases in Protime/INR. Performed By: #### T SH, FT3, JUANCARLOS, LD, FT4, ADIFF, GFR, ANEU, CBC, CMP #### [place] [id number] [place] [address] LABORATORYOrdered By: SYSTEM SYSTEM on 07-27-2024 INR Coag (PPP) [Relative time] 1.2 {INR} Invalid Interpretation Code AO HemoHmario GANDHI Comment on above: Interpretive Data: Cindy briggs [employer] (CHEST, 1991, 102:312S-25S) [...] Coag (PPP) [Time] 14.3 s Normal 9.0-14.4 [facility] Comment on above: Performed By: #### C VFLURV #### [facility] [address] [place], [place] [address] PT International Ratio 1.2 Normal [facility] Comment on above: Result Comment: [employer] (CHEST, 1992, 102:312S-25S) recommended therapeutic range for oral anticoagulant therapy is: LOW RISK: Prophylaxis of venous thrombosis INR: 2.0-3.0 Treatment of pulmonary embolism 2.0-3.0 Prevention of systemic embolism 2.0-3.0 HIGH RISK: Mechanical prosthetic valves 2.5-3.5 Performed By: #### C VFLURV #### [place] [address] UFENTSon 07-27-2024 Fentanyl (u) Negative Normal Negative [facility] Comment on above: Result Comment: Test ing has been performed FOR MEDICAL PURPOSES ONLY. Performed By: #### C VFLURV #### [place] [address] UOXYSon 07-27-2024 Oxycodone (u) Negative Normal Negative [facility] Comment on above: Result Comment: Test ing has been performed FOR MEDICAL PURPOSES ONLY. Performed By: #### C VFLURV #### [place] [address] .Auto Diffon 07-26-2024 Basophil, Absolute 0.1 10 3/mcL Normal 0.0-0.3 [facility] Comment on above: Performed By: #### ESTEFANY Ellis #### [place] [id number] Basophils/100 WBC (Bld) 1.0 % Normal 0.0-2.5 [facility] Comment on above: Performed By: #### RADHA EllisMICAO #### [address] [address] Eosinophil, Absolute 0.6 10 3/mcL Normal 0.0-0.7 [facility] Comment on above: Performed By: #### RADHA EllisMICINEZ #### [address] [address] Eosinophils/100 WBC (Bld) 5.7 % Normal 0.0-6.0 [facility] Comment on above: Performed By: #### ESTEFANY Ellis #### [address] [address] Lymphocyte, Absolute 1.6 10 3/mcL Normal 0.9-4.3 [facility] Comment on above: Performed By: #### ESTEFANY Ellis #### [address] [address] Lymphocytes/100 WBC (Bld) 15.7 % Low 20.0-40.0 [facility] Comment on above: Performed By: #### JANET EllisAO #### [address] [address] Monocyte, Absolute 0.8 10 3/mcL Normal 0.1-1.4 [facility] Comment on above: Performed By: #### ESTEFANY Ellis #### [address] [address] Monocytes/100 WBC (Bld) 8.5 % Normal 2.0-13.0 [facility] Comment on above: Performed By: #### ESTEFANY Ellis #### [address] [address] Neutrophils/100 WBC (Bld) 69.1 % Normal 50.0-75.0 [facility] Comment on above: Performed By: #### ESTEFANY Ellis #### [address] [address] .GFRon 07-26-2024 Estimated Glomerular Filtration Rate 39 ml/min/1.73sqm Normal [facility] Comment on above: Result Comment: Stages of [...] results. Performed By: #### C VFLURV #### [place] [address] .MDWon 07-26-2024 Monocyte Distribution Width 16.89 Normal 0.00-20.00 [facility] Comment on above: Result Comment: For ED adult patients suspected of sepsis, MDW<=20.0 does not rule out sepsis or risk of sepsis Performed By: #### ESTEFANY Ellis #### [place] [address] .NEUABSon 07-26-2024 Neutrophil, Absolute 6.8 10 3/mcL Normal 2.3-8.1 [facility] Comment on above: Performed By: #### ESTEFANY Ellis #### [place] [address] ACETAon 07-26-2024 Acetaminophen [Mass/Vol] 0.0 ug/mL Low 10.0-30.0 [facility] Comment on above: Performed By: #### ESTEFANY Ellis #### [place] [address] Timmy 07-26-2024 Ethanol Level <3 Normal [facility] Comment on above: Performed By: #### ESTEFANY Ellis #### [place] [address] CBCon 07-26-2024 Erythrocyte distribution width (RBC) [Ratio] 16.6 % High 11.5-15.5 [facility] Comment on above: Performed By: #### ESTEFANY Ellis #### [place] [address] Hematocrit (Bld) [Volume fraction] 47.9 % Normal 40.0-52.0 [facility] Comment on above: Performed By: #### ESTEFANY Ellis #### [place] [address] Hgb 16.2 G/dL Normal 13.0-17.5 [facility] Comment on above: Performed By: #### ESTEFANY Ellis #### [address] [address] MCH (RBC) [Entitic mass] 31.6 pg Normal 27.0-33.0 [facility] Comment on above: Performed By: #### Nabil Valenzulea UAIGNACIO #### [address] [address] MCHC 33.8 G/dL Normal 32.0-36.0 [facility] Comment on above: Performed By: #### ESTEFANY Ellis #### [address] [address] MCV (RBC) [Entitic vol] 93.5 fL Normal 81.0-100.0 [facility] Comment on above: Performed By: #### ESTEFANY Ellis #### [address] [address] Platelet 237 10 3/mcL Normal 150-450 [facility] Comment on above: Performed By: #### ESTEFANY Ellis #### [address] [address] Platelet mean volume (Bld) [Entitic vol] 7.4 fL Normal 6.4-10.5 [facility] Comment on above: Performed By: #### ESTEFANY Ellis #### [address] [address] RBC 5.12 10 6/mcL Normal 4.50-6.00 [facility] Comment on above: Performed By: #### ESTEFANY Ellis #### [address] [address] WBC 9.9 10 3/mcL Normal 4.5-10.8 [facility] Comment on above: Performed By: #### ESTEFANY Ellis #### [address] [address] CMPon 07-26-2024 Albumin Level 3.6 G/dL Normal 3.5-5.0 [facility] Comment on above: Performed By: #### C VFLURV #### [address] [address] Albumin/Globulin [Mass ratio] 0.9 {ratio} Low 1.1-2.5 [facility] Comment on above: Performed By: #### C VFLURV #### [address] [address] ALP [Catalytic activity/Vol] 94 U/L Normal 40-135 [facility] Comment on above: Performed By: #### C VFLURV #### [address] [address] ALT [Catalytic activity/Vol] 29 U/L Normal 16-63 [facility] Comment on above: Performed By: #### C VFLURV #### [address] [address] AST [Catalytic activity/Vol] 16 U/L Normal 10-40 [facility] Comment on above: Performed By: #### C VFLURV #### [address] [address] Bili Total 0.7 mg/dL Normal 0.2-1.0 [facility] Comment on above: Result Comment: Use of this assay is not recommended for patients undergoing treatment with eltrombopag due to the potential for falsely elevated results. Performed By: #### C VFLURV #### [address] [address] BUN/Creatinine Ratio 11 ratio Normal 7-27 [facility] Comment on above: Performed By: #### C VFLURV #### [address] [address] Calcium [Mass/Vol] 9.1 mg/dL Normal 8.4-10.2 [facility] Comment on above: Performed By: #### C VFLURV #### [address] [address] Chloride [Moles/Vol] 103 mmol/L Normal 98-107 [facility] Comment on above: Performed By: #### C VFLURV #### [address] [address] CO2 [Moles/Vol] 27 mmol/L Normal 22-29 [facility] Comment on above: Performed By: #### C VFLURV #### [address] [address] Creatinine [Mass/Vol] 2.09 mg/dL High 0.67-1.17 [facility] Comment on above: Performed By: #### C VFLURV #### [address] [address] Electrolyte Balance 9.0 mEq/L Normal 4.0-15.0 [facility] Comment on above: Performed By: #### C VFLURV #### [address] [address] Globulin 3.9 G/dL Normal 2.7-4.4 [facility] Comment on above: Performed By: #### C VFLURV #### [address] [address] Glucose [Mass/Vol] 126 mg/dL High 70-105 [facility] Comment on above: Performed By: #### C VFLURV #### [address] [address] Potassium [Moles/Vol] 3.5 mmol/L Normal 3.5-5.1 [facility] Comment on above: Performed By: #### C VFLURV #### [address] [address] Sodium [Moles/Vol] 139 mmol/L Normal 136-145 [facility] Comment on above: Performed By: #### C VFLURV #### [address] [address] Total Protein 7.5 G/dL Normal 6.4-8.2 [facility] Comment on above: Performed By: #### C VFLURV #### [address] [address] Urea nitrogen [Mass/Vol] 22 mg/dL High 7-18 [facility] Comment on above: Performed By: #### C VFLURV #### [place] [id number] CVFLURVon 07-26-2024 FLU A PCR Negative Normal Negative [facility] Comment on above: Performed By: #### C VFLURV #### [place] [id number] FLU B PCR Negative Normal Negative [facility] Comment on above: Performed By: #### C VFLURV #### [place] [address] RSV PCR Negative Normal Negative [facility] Comment on above: Performed By: #### C VFLURV #### [place] [address] SARS-CoV-2 (COVID-19) RNA GILMAR+probe Ql (Unsp spec) Negative Normal Negative [facility] Comment on above: Result Comment: Resu lts [...] results. Performed By: #### C VFLURV #### [place] [address] LABORATORYOrdered By: Carmen Rome on 07-26-2024 Acetaminophen [...] (07/26/24 8:36 PM) Invalid Interpretation Code Negative [facility] Comment on above: Interpretive Data: T esting has been performed FOR MEDICAL PURPOSES ONLY. SALon 07-26-2024 Salicylate Level 3.7 mg/dL Normal 2.8-20.0 [facility] Comment on above: Performed By: #### U A, UAMICAO #### [address] [address] UDRUGon 07-26-2024 Amphetamine (u) Negative Normal Negative [facility] Comment on above: Performed By: #### C VFLURV #### [address] [address] Barbiturate (u) Negative Normal Negative [facility] Comment on above: Performed By: #### C VFLURV #### [address] [address] Benzodiazepine (u) Negative Normal Negative [facility] Comment on above: Performed By: #### C VFLURV #### [address] [address] Cannabinoid (u) Positive Abnormal Negative [facility] Comment on above: Performed By: #### C VFLURV #### [place] [address] Cocaine Ql (U) Negative Normal Negative [facility] Comment on above: Performed By: #### C VFLURV #### [place] [address] Methadone Ql (U) Negative Normal Negative [facility] Comment on above: Performed By: #### C VFLURV #### [place] [address] Opiate (u) Negative Normal Negative [facility] Comment on above: Performed By: #### C VFLURV #### [place] [address] PCP (u) Negative Normal Negative [facility] Comment on above: Performed By: #### C VFLURV #### [address] [address] Urine Drugs screened: See Below [facility] Comment on above: Result Comment: This drug [...] ONLY. Performed By: #### C VFLURV #### [place] [address] URINon 07-26-2024 Color (U) Yellow Normal [facility] Comment on above: Performed By: #### C VFLURV #### [address] [address] Glucose (U) [Mass/Vol] 500 mg/dL Abnormal Negative [facility] Comment on above: Performed By: #### C VFLURV #### [address] [address] Ketones Ql (U) Trace Abnormal Negative [facility] Comment on above: Performed By: #### C VFLURV #### [address] [address] UA Appear Clear Normal Clear [facility] Comment on above: Performed By: #### C VFLURV #### [address] [address] UA Bili Small Abnormal Negative [facility] Comment on above: Performed By: #### C VFLURV #### [address] [address] UA Blood Negative Normal Negative [facility] Comment on above: Performed By: #### C VFLURV #### [address] [address] UA Leuk Est Negative Normal Negative [facility] Comment on above: Performed By: #### C VFLURV #### [address] [address] UA Nitrite Negative Normal Negative [facility] Comment on above: Performed By: #### C VFLURV #### [address] [address] UA pH 6.0 Normal 5.0 - 8.0 [facility] Comment on above: Performed By: #### C VFLURV #### [address] [address] UA Protein Negative Normal Negative [facility] Comment on above: Performed By: #### C VFLURV #### [address] [address] UA Spec Grav 1.015 Normal 1.015-1.025 [facility] Comment on above: Performed By: #### C VFLURV #### [facility] [address] [place], [place] [address] UA Specimen Type Void Normal [facility] Comment on above: Performed By: #### C VFLURV #### [facility] [address] [place], [place] [address] UA Urobilinogen 0.2 E.U./dL Normal 0.2-1.0 [facility] Comment on above: Performed By: #### C VFLURV #### [facility] [address] [place], [place] [address] LEVOFLOXACIN:SUSC:PT:ISOLATE :ORDQN:MICon 07-22-2024 levoFLOXacin KEN [Susc] Few [...] management. Please contact Microbiology with any questions ([phone]). Few normal skin monie present Sensitivity testing not indicated. [facility] levoFLOXacin KEN [Susc]on Bacteroides fragilis Bacteroides fragilis [facility] Escherichia coli ESBL Escherichia coli ESBL [facility] No organisms seen. [facility] .Auto Diffon 07-03-2024 Basophil, Absolute 0.1 10 3/mcL Normal 0.0-0.3 [facility] Comment on above: Performed By: #### T SH, FT3, JUANCARLOS, LD, FT4, ADIFF, GFR, ANEU, CBC, CMP #### [address] [address] Basophils/100 WBC (Bld) 1.0 % Normal 0.0-2.5 [facility] Comment on above: Performed By: #### T SH, FT3, JUANCARLOS, LD, FT4, ADIFF, GFR, ANEU, CBC, CMP #### [address] [address] Eosinophil, Absolute 0.6 10 3/mcL Normal 0.0-0.7 [facility] Comment on above: Performed By: #### T SH, FT3, JUANCARLOS, LD, FT4, ADIFF, GFR, ANEU, CBC, CMP #### [address] [address] Eosinophils/100 WBC (Bld) 7.4 % High 0.0-6.0 [facility] Comment on above: Performed By: #### T SH, FT3, JUANCARLOS, LD, FT4, ADIFF, GFR, ANEU, CBC, CMP #### [address] [address] Lymphocyte, Absolute 1.3 10 3/mcL Normal 0.9-4.3 [facility] Comment on above: Performed By: #### T SH, FT3, JUANCARLOS, LD, FT4, ADIFF, GFR, ANEU, CBC, CMP #### [address] [address] Lymphocytes/100 WBC (Bld) 15.4 % Low 20.0-40.0 [facility] Comment on above: Performed By: #### T SH, FT3, JUANCARLOS, LD, FT4, ADIFF, GFR, ANEU, CBC, CMP #### [address] [address] Monocyte, Absolute 0.7 10 3/mcL Normal 0.1-1.4 [facility] Comment on above: Performed By: #### T SH, FT3, JUANCARLOS, LD, FT4, ADIFF, GFR, ANEU, CBC, CMP #### [address] [address] Monocytes/100 WBC (Bld) 8.7 % Normal 2.0-13.0 [facility] Comment on above: Performed By: #### T SH, FT3, JUANCARLOS, LD, FT4, ADIFF, GFR, ANEU, CBC, CMP #### [address] [address] Neutrophils/100 WBC (Bld) 67.5 % Normal 50.0-75.0 [facility] Comment on above: Performed By: #### T SH, FT3, JUANCARLOS, LD, FT4, ADIFF, GFR, ANEU, CBC, CMP #### [place] [id number] .GFRon 07-03-2024 Estimated Glomerular Filtration Rate 49 ml/min/1.73sqm Normal [facility] Comment on above: Result Comment: Stages [...] FT4, ADIFF, GFR, ANEU, CBC, CMP #### [address] [address] .NEUABSon 07-03-2024 Neutrophil, Absolute 5.8 10 3/mcL Normal 2.3-8.1 [facility] Comment on above: Performed By: #### T SH, FT3, JUANCARLOS, LD, FT4, ADIFF, GFR, ANEU, CBC, CMP #### [place] [id number] CBCon 07-03-2024 Erythrocyte distribution width (RBC) [Ratio] 16.9 % High 11.5-15.5 [facility] Comment on above: Performed By: #### T SH, FT3, JUANCARLOS, LD, FT4, ADIFF, GFR, ANEU, CBC, CMP #### [place] [address] Hematocrit (Bld) [Volume fraction] 45.6 % Normal 40.0-52.0 [facility] Comment on above: Performed By: #### T SH, FT3, JUANCARLOS, LD, FT4, ADIFF, GFR, ANEU, CBC, CMP #### [place] [address] Hgb 15.6 G/dL Normal 13.0-17.5 [facility] Comment on above: Performed By: #### T SH, FT3, JUANCARLOS, LD, FT4, ADIFF, GFR, ANEU, CBC, CMP #### [place] [address] MCH (RBC) [Entitic mass] 32.8 pg Normal 27.0-33.0 [facility] Comment on above: Performed By: #### T SH, FT3, JUANCARLOS, LD, FT4, ADIFF, GFR, ANEU, CBC, CMP #### [place] [address] MCHC 34.1 G/dL Normal 32.0-36.0 [facility] Comment on above: Performed By: #### T SH, FT3, JUANCARLOS, LD, FT4, ADIFF, GFR, ANEU, CBC, CMP #### [place] [address] MCV (RBC) [Entitic vol] 96.2 fL Normal 81.0-100.0 [facility] Comment on above: Performed By: #### T SH, FT3, JUANCARLOS, LD, FT4, ADIFF, GFR, ANEU, CBC, CMP #### [place] [address] Platelet 234 10 3/mcL Normal 150-450 [facility] Comment on above: Performed By: #### T SH, FT3, JUANCARLOS, LD, FT4, ADIFF, GFR, ANEU, CBC, CMP #### [place] [address] Platelet mean volume (Bld) [Entitic vol] 7.8 fL Normal 6.4-10.5 [facility] Comment on above: Performed By: #### T SH, FT3, JUANCARLOS, LD, FT4, ADIFF, GFR, ANEU, CBC, CMP #### [place] [address] RBC 4.74 10 6/mcL Normal 4.50-6.00 [facility] Comment on above: Performed By: #### T SH, FT3, JUANCARLOS, LD, FT4, ADIFF, GFR, ANEU, CBC, CMP #### [place] [address] WBC 8.6 10 3/mcL Normal 4.5-10.8 [facility] Comment on above: Performed By: #### T SH, FT3, JUANCARLOS, LD, FT4, ADIFF, GFR, ANEU, CBC, CMP #### [place] [address] CMPon 07-03-2024 Albumin Level 3.6 G/dL Normal 3.2-4.8 [facility] Comment on above: Performed By: #### T SH, FT3, JUANCARLOS, LD, FT4, ADIFF, GFR, ANEU, CBC, CMP #### [place] [address] Albumin/Globulin [Mass ratio] 1.1 {ratio} Normal 0.9-1.6 [facility] Comment on above: Performed By: #### T SH, FT3, JUANCARLOS, LD, FT4, ADIFF, GFR, ANEU, CBC, CMP #### [place] [address] ALP [Catalytic activity/Vol] 84 U/L Normal 38-126 [facility] Comment on above: Performed By: #### T SH, FT3, JUANCARLOS, LD, FT4, ADIFF, GFR, ANEU, CBC, CMP #### [place] [address] ALT [Catalytic activity/Vol] 12 U/L Normal 12-55 [facility] Comment on above: Performed By: #### T SH, FT3, JUANCARLOS, LD, FT4, ADIFF, GFR, ANEU, CBC, CMP #### [place] [id number] AST [Catalytic activity/Vol] 14 U/L Normal 8-34 [facility] Comment on above: Performed By: #### T SH, FT3, JUANCARLOS, LD, FT4, ADIFF, GFR, ANEU, CBC, CMP #### [place] [id number] Bili Total 0.20 mg/dL Normal 0.20-1.20 [facility] Comment on above: Result Comment: Use of this assay is not recommended for patients undergoing treatment with eltrombopag due to the potential for falsely elevated results. Performed By: #### T SH, FT3, JUANCARLOS, LD, FT4, ADIFF, GFR, ANEU, CBC, CMP #### [place] [id number] BUN/Creatinine Ratio 18.0 ratio Normal 10.0-22.0 [facility] Comment on above: Performed By: #### T SH, FT3, JUANCARLOS, LD, FT4, ADIFF, GFR, ANEU, CBC, CMP #### [place] [id number] Calcium [Mass/Vol] 8.9 mg/dL Normal 8.7-10.4 [facility] Comment on above: Performed By: #### T SH, FT3, JUANCARLOS, LD, FT4, ADIFF, GFR, ANEU, CBC, CMP #### [address] [address] Chloride [Moles/Vol] 108 mmol/L Normal 98-110 [facility] Comment on above: Performed By: #### T SH, FT3, JUANCARLOS, LD, FT4, ADIFF, GFR, ANEU, CBC, CMP #### [address] [address] CO2 [Moles/Vol] 28 mmol/L Normal 22-32 [facility] Comment on above: Performed By: #### T SH, FT3, JUANCARLOS, LD, FT4, ADIFF, GFR, ANEU, CBC, CMP #### [address] [address] Creatinine [Mass/Vol] 1.72 mg/dL High 0.60-1.40 [facility] Comment on above: Result Comment: Test ing performed on [employer] analyzer using enzymatic creatinine methodology. Performed By: #### T SH, FT3, JUANCARLOS, LD, FT4, ADIFF, GFR, ANEU, CBC, CMP #### [address] [address] Electrolyte Balance 6.0 mEq/L Normal 4.0-15.0 [facility] Comment on above: Performed By: #### T SH, FT3, JUANCARLOS, LD, FT4, ADIFF, GFR, ANEU, CBC, CMP #### [place] [id number] Globulin 3.2 G/dL Normal 2.5-4.2 [facility] Comment on above: Performed By: #### T SH, FT3, JUANCARLOS, LD, FT4, ADIFF, GFR, ANEU, CBC, CMP #### [address] [address] Glucose [Mass/Vol] 112 mg/dL High 70-110 [facility] Comment on above: Performed By: #### T SH, FT3, JUANCARLOS, LD, FT4, ADIFF, GFR, ANEU, CBC, CMP #### [address] [address] Potassium [Moles/Vol] 3.6 mmol/L Normal 3.5-5.0 [facility] Comment on above: Performed By: #### T SH, FT3, JUANCARLOS, LD, FT4, ADIFF, GFR, ANEU, CBC, CMP #### [address] [address] Sodium [Moles/Vol] 142 mmol/L Normal 136-145 [facility] Comment on above: Performed By: #### T SH, FT3, JUANCARLOS, LD, FT4, ADIFF, GFR, ANEU, CBC, CMP #### [place] [id number] Total Protein 6.8 G/dL Normal 5.7-8.2 [facility] Comment on above: Performed By: #### T SH, FT3, JUANCARLOS, LD, FT4, ADIFF, GFR, ANEU, CBC, CMP #### [place] [address] Urea nitrogen [Mass/Vol] 31.0 mg/dL High 8.0-22.0 [facility] Comment on above: Performed By: #### T SH, FT3, JUANCARLOS, LD, FT4, ADIFF, GFR, ANEU, CBC, CMP #### [place] [address] CORTon 07-03-2024 Cortisol Level 24.9 mcg/dL Normal [facility] Comment on above: Result Comment: Juancarlos isol AM Reference Range 6.5-26.0 mcg/dL Cortisol PM Reference Range 3.5-15.0 mcg/dL Performed By: #### T SH, FT3, JUANCARLOS, LD, FT4, ADIFF, GFR, ANEU, CBC, CMP #### [place] [address] FT3on 07-03-2024 Free T3 [Mass/Vol] 3.72 pg/mL Normal 2.30-4.20 [facility] Comment on above: Performed By: #### T SH, FT3, JUANCARLOS, LD, FT4, ADIFF, GFR, ANEU, CBC, CMP #### [place] [address] FT4on 07-03-2024 Free T4 [Mass/Vol] 1.45 ng/dL Normal 0.89-1.76 [facility] Comment on above: Result Comment: No te - New Reference Range in effect 19 Performed By: #### T SH, FT3, JUANCARLOS, LD, FT4, ADIFF, GFR, ANEU, CBC, CMP #### [place] [address] LABORATORYOrdered By: Tim Lee on 07-03-2024 Appearance [...] above: Interpretive Data: T esting performed on [employer] analyzer using enzymatic creatinine methodology. Electrolyte Balance [...] LDHon 07-03-2024 LDH 169 U/L Normal 120-246 [facility] Comment on above: Performed By: #### T SH, FT3, JUANCARLOS, LD, FT4, ADIFF, GFR, ANEU, CBC, CMP #### [place] [id number] TSHon 07-03-2024 TSH 1.757 mIU/mL Normal 0.550-4.780 [facility] Comment on above: Performed By: #### T SH, FT3, JUANCARLOS, LD, FT4, ADIFF, GFR, ANEU, CBC, CMP #### [address] [address] UAon 07-03-2024 Color (U) Yellow Normal [facility] Comment on above: Performed By: #### T SH, FT3, JUANCARLOS, LD, FT4, ADIFF, GFR, ANEU, CBC, CMP #### [place] [address] Glucose (U) [Mass/Vol] mg/dL Abnormal Negative [facility] Comment on above: Performed By: #### T SH, FT3, JUANCARLOS, LD, FT4, ADIFF, GFR, ANEU, CBC, CMP #### [place] [id number] Ketones Ql (U) Negative Normal Neg-Trace [facility] Comment on above: Performed By: #### T SH, FT3, JUANCARLOS, LD, FT4, ADIFF, GFR, ANEU, CBC, CMP #### [place] [address] UA Appear Clear Normal Clear [facility] Comment on above: Performed By: #### T SH, FT3, JUANCARLOS, LD, FT4, ADIFF, GFR, ANEU, CBC, CMP #### [place] [address] UA Blood Trace Normal Neg-Trace [facility] Comment on above: Performed By: #### T SH, FT3, JUANCARLOS, LD, FT4, ADIFF, GFR, ANEU, CBC, CMP #### [place] [address] UA Leuk Est Moderate Abnormal Negative [facility] Comment on above: Performed By: #### T SH, FT3, JUANCARLOS, LD, FT4, ADIFF, GFR, ANEU, CBC, CMP #### [place] [address] UA Nitrite Negative Normal Negative [facility] Comment on above: Performed By: #### T SH, FT3, JUANCARLOS, LD, FT4, ADIFF, GFR, ANEU, CBC, CMP #### [place] [address] UA pH 6.0 Normal 5.0 - 8.0 [facility] Comment on above: Performed By: #### T SH, FT3, JUANCARLOS, LD, FT4, ADIFF, GFR, ANEU, CBC, CMP #### [place] [address] UA Protein Trace Normal Negative [facility] Comment on above: Performed By: #### T SH, FT3, JUANCARLOS, LD, FT4, ADIFF, GFR, ANEU, CBC, CMP #### [place] [address] UA Spec Grav 1.020 Normal 1.006-1.029 [facility] Comment on above: Performed By: #### T SH, FT3, JUANCARLOS, LD, FT4, ADIFF, GFR, ANEU, CBC, CMP #### [place] [address] UA Specimen Type Clean Catch Normal [facility] Comment on above: Performed By: #### T SH, FT3, JUANCARLOS, LD, FT4, ADIFF, GFR, ANEU, CBC, CMP #### [place] [address] UA Urobilinogen 0.2 E.U./dL Normal 0.2-1.0 [facility] Comment on above: Performed By: #### T SH, FT3, JUANCARLOS, LD, FT4, ADIFF, GFR, ANEU, CBC, CMP #### [place] [address] Urobilinogen (U) [Mass/Vol] Negative Normal Neg-Trace [facility] Comment on above: Performed By: #### T SH, FT3, JUANCARLOS, LD, FT4, ADIFF, GFR, ANEU, CBC, CMP #### [place] [address] UAMICon 07-03-2024 UA Bacteria 1+ /hpf Abnormal Negative [facility] Comment on above: Performed By: #### T SH, FT3, JUANCARLOS, LD, FT4, ADIFF, GFR, ANEU, CBC, CMP #### [place] [address] UA RBC 0-2 Normal 0-2 [facility] Comment on above: Performed By: #### T SH, FT3, JUANCARLOS, LD, FT4, ADIFF, GFR, ANEU, CBC, CMP #### [place] [address] UA Squam Epithelial 0-2 Normal 0-20 [facility] Comment on above: Performed By: #### T SH, FT3, JUANCARLOS, LD, FT4, ADIFF, GFR, ANEU, CBC, CMP #### [place] [address] UA Transitional Epithelial 0-2 Normal [facility] Comment on above: Performed By: #### T SH, FT3, JUANCARLOS, LD, FT4, ADIFF, GFR, ANEU, CBC, CMP #### [facility] [address] [place] [address] UA WBC 3-5 Normal 0-5 [facility] Comment on above: Performed By: #### T SH, FT3, JUANCARLOS, LD, FT4, ADIFF, GFR, ANEU, CBC, CMP #### [facility] [address] [place] [address] THORAX W/ CONTRASTon 05- CT THORAX [...] 06/28/2024 1:43:53 PM Ordering Provider: BHAVIK Green [facility] CT ABDOMEN/PELVIS W/CONTRAST on 06-26-2024 CT ABDOMEN/PELVIS [...] 06/26/2024 4:46:12 PM Ordering Provider: BHAVIK Green [facility] .Auto Diffon 06-05-2024 Basophil, Absolute 0.1 10 3/mcL Normal 0.0-0.3 [facility] Comment on above: Performed By: #### T SH, FT3, JUANCARLOS, LD, FT4, ADIFF, GFR, ANEU, CBC, CMP #### [address] [address] Basophils/100 WBC (Bld) 0.7 % Normal 0.0-2.5 [facility] Comment on above: Performed By: #### T SH, FT3, JUANCARLOS, LD, FT4, ADIFF, GFR, ANEU, CBC, CMP #### [address] [address] Eosinophil, Absolute 0.8 10 3/mcL High 0.0-0.7 [facility] Comment on above: Performed By: #### T SH, FT3, JUANCARLOS, LD, FT4, ADIFF, GFR, ANEU, CBC, CMP #### [address] [address] Eosinophils/100 WBC (Bld) 9.8 % High 0.0-6.0 [facility] Comment on above: Performed By: #### T SH, FT3, JUANCARLOS, LD, FT4, ADIFF, GFR, ANEU, CBC, CMP #### [address] [address] Lymphocyte, Absolute 1.4 10 3/mcL Normal 0.9-4.3 [facility] Comment on above: Performed By: #### T SH, FT3, JUANCARLOS, LD, FT4, ADIFF, GFR, ANEU, CBC, CMP #### [address] [address] Lymphocytes/100 WBC (Bld) 16.4 % Low 20.0-40.0 [facility] Comment on above: Performed By: #### T SH, FT3, JUANCARLOS, LD, FT4, ADIFF, GFR, ANEU, CBC, CMP #### [address] [address] Monocyte, Absolute 0.8 10 3/mcL Normal 0.1-1.4 [facility] Comment on above: Performed By: #### T SH, FT3, JUANCARLOS, LD, FT4, ADIFF, GFR, ANEU, CBC, CMP #### [address] [address] Monocytes/100 WBC (Bld) 8.9 % Normal 2.0-13.0 [facility] Comment on above: Performed By: #### T SH, FT3, JUANCARLOS, LD, FT4, ADIFF, GFR, ANEU, CBC, CMP #### [address] [address] Neutrophils/100 WBC (Bld) 64.2 % Normal 50.0-75.0 [facility] Comment on above: Performed By: #### T SH, FT3, JUANCARLOS, LD, FT4, ADIFF, GFR, ANEU, CBC, CMP #### [address] [address] .GFRon 06-05-2024 Estimated Glomerular Filtration Rate 48 ml/min/1.73sqm Normal [facility] Comment on above: Result Comment: Stages [...] FT4, ADIFF, GFR, ANEU, CBC, CMP #### [place] [address] .NEUABSon 06-05-2024 Neutrophil, Absolute 5.5 10 3/mcL Normal 2.3-8.1 [facility] Comment on above: Performed By: #### T SH, FT3, JUANCARLOS, LD, FT4, ADIFF, GFR, ANEU, CBC, CMP #### [place] [address] CBCon 06-05-2024 Erythrocyte distribution width (RBC) [Ratio] 18.9 % High 11.5-15.5 [facility] Comment on above: Performed By: #### T SH, FT3, JUANCARLOS, LD, FT4, ADIFF, GFR, ANEU, CBC, CMP #### [place] [address] Hematocrit (Bld) [Volume fraction] 43.3 % Normal 40.0-52.0 [facility] Comment on above: Performed By: #### T SH, FT3, JUANCARLOS, LD, FT4, ADIFF, GFR, ANEU, CBC, CMP #### [place] [address] Hgb 14.5 G/dL Normal 13.0-17.5 [facility] Comment on above: Performed By: #### T SH, FT3, JUANCARLOS, LD, FT4, ADIFF, GFR, ANEU, CBC, CMP #### [place] [address] MCH (RBC) [Entitic mass] 31.6 pg Normal 27.0-33.0 [facility] Comment on above: Performed By: #### T SH, FT3, JUANCARLOS, LD, FT4, ADIFF, GFR, ANEU, CBC, CMP #### [place] [address] MCHC 33.5 G/dL Normal 32.0-36.0 [facility] Comment on above: Performed By: #### T SH, FT3, JUANCARLOS, LD, FT4, ADIFF, GFR, ANEU, CBC, CMP #### [place] [address] MCV (RBC) [Entitic vol] 94.4 fL Normal 81.0-100.0 [facility] Comment on above: Performed By: #### T SH, FT3, JUANCARLOS, LD, FT4, ADIFF, GFR, ANEU, CBC, CMP #### [place] [address] Platelet 253 10 3/mcL Normal 150-450 [facility] Comment on above: Performed By: #### T SH, FT3, JUANCARLOS, LD, FT4, ADIFF, GFR, ANEU, CBC, CMP #### [place] [address] Platelet mean volume (Bld) [Entitic vol] 7.6 fL Normal 6.4-10.5 [facility] Comment on above: Performed By: #### T SH, FT3, JUANCARLOS, LD, FT4, ADIFF, GFR, ANEU, CBC, CMP #### [place] [address] RBC 4.59 10 6/mcL Normal 4.50-6.00 [facility] Comment on above: Performed By: #### T SH, FT3, JUANCARLOS, LD, FT4, ADIFF, GFR, ANEU, CBC, CMP #### [place] [address] WBC 8.6 10 3/mcL Normal 4.5-10.8 [facility] Comment on above: Performed By: #### T SH, FT3, JUANCARLOS, LD, FT4, ADIFF, GFR, ANEU, CBC, CMP #### [place] [address] CMPon 06-05-2024 Albumin Level 3.8 G/dL Normal 3.2-4.8 [facility] Comment on above: Performed By: #### T SH, FT3, JUANCARLOS, LD, FT4, ADIFF, GFR, ANEU, CBC, CMP #### [place] [address] Albumin/Globulin [Mass ratio] 1.2 {ratio} Normal 0.9-1.6 [facility] Comment on above: Performed By: #### T SH, FT3, JUANCARLOS, LD, FT4, ADIFF, GFR, ANEU, CBC, CMP #### [place] [address] ALP [Catalytic activity/Vol] 83 U/L Normal 38-126 [facility] Comment on above: Performed By: #### T SH, FT3, JUANCARLOS, LD, FT4, ADIFF, GFR, ANEU, CBC, CMP #### [place] [address] ALT [Catalytic activity/Vol] 20 U/L Normal 12-55 [facility] Comment on above: Performed By: #### T SH, FT3, JUANCARLOS, LD, FT4, ADIFF, GFR, ANEU, CBC, CMP #### [place] [id number] AST [Catalytic activity/Vol] 16 U/L Normal 8-34 [facility] Comment on above: Performed By: #### T SH, FT3, JUANCARLOS, LD, FT4, ADIFF, GFR, ANEU, CBC, CMP #### [place] [address] Bili Total 0.40 mg/dL Normal 0.20-1.20 [facility] Comment on above: Result Comment: Use of this assay is not recommended for patients undergoing treatment with eltrombopag due to the potential for falsely elevated results. Performed By: #### T SH, FT3, JUANCARLOS, LD, FT4, ADIFF, GFR, ANEU, CBC, CMP #### [place] [address] BUN/Creatinine Ratio 12.5 ratio Normal 10.0-22.0 [facility] Comment on above: Performed By: #### T SH, FT3, JUANCARLOS, LD, FT4, ADIFF, GFR, ANEU, CBC, CMP #### [place] [id number] Calcium [Mass/Vol] 9.3 mg/dL Normal 8.7-10.4 [facility] Comment on above: Performed By: #### T SH, FT3, JUANCARLOS, LD, FT4, ADIFF, GFR, ANEU, CBC, CMP #### [place] [id number] Chloride [Moles/Vol] 105 mmol/L Normal 98-110 [facility] Comment on above: Performed By: #### T SH, FT3, JUANCARLOS, LD, FT4, ADIFF, GFR, ANEU, CBC, CMP #### [place] [address] CO2 [Moles/Vol] 30 mmol/L Normal 22-32 [facility] Comment on above: Performed By: #### T SH, FT3, JUANCARLOS, LD, FT4, ADIFF, GFR, ANEU, CBC, CMP #### [place] [id number] Creatinine [Mass/Vol] 1.76 mg/dL High 0.60-1.40 [facility] Comment on above: Result Comment: Test ing performed on [employer] analyzer using enzymatic creatinine methodology. Performed By: #### T SH, FT3, JUANCARLOS, LD, FT4, ADIFF, GFR, ANEU, CBC, CMP #### [place] [address] Electrolyte Balance 5.0 mEq/L Normal 4.0-15.0 [facility] Comment on above: Performed By: #### T SH, FT3, JUANCARLOS, LD, FT4, ADIFF, GFR, ANEU, CBC, CMP #### [place] [address] Globulin 3.2 G/dL Normal 1.5-3.8 [facility] Comment on above: Performed By: #### T SH, FT3, JUANCARLOS, LD, FT4, ADIFF, GFR, ANEU, CBC, CMP #### [place] [id number] Glucose [Mass/Vol] 113 mg/dL High 70-110 [facility] Comment on above: Performed By: #### T SH, FT3, JUANCARLOS, LD, FT4, ADIFF, GFR, ANEU, CBC, CMP #### [address] [address] Potassium [Moles/Vol] 4.0 mmol/L Normal 3.5-5.0 [facility] Comment on above: Performed By: #### T SH, FT3, JUANCARLOS, LD, FT4, ADIFF, GFR, ANEU, CBC, CMP #### [place] [id number] Sodium [Moles/Vol] 140 mmol/L Normal 136-145 [facility] Comment on above: Performed By: #### T SH, FT3, JUANCARLOS, LD, FT4, ADIFF, GFR, ANEU, CBC, CMP #### [place] [id number] Total Protein 7.0 G/dL Normal 5.7-8.2 [facility] Comment on above: Performed By: #### T SH, FT3, JUANCARLOS, LD, FT4, ADIFF, GFR, ANEU, CBC, CMP #### [place] [id number] Urea nitrogen [Mass/Vol] 22.0 mg/dL Normal 8.0-22.0 [facility] Comment on above: Performed By: #### T SH, FT3, JUANCARLOS, LD, FT4, ADIFF, GFR, ANEU, CBC, CMP #### [place] [id number] CORTon 06-05-2024 Cortisol Level 14.8 mcg/dL Normal [facility] Comment on above: Result Comment: Juancarlos isol AM Reference Range 6.5-26.0 mcg/dL Cortisol PM Reference Range 3.5-15.0 mcg/dL Performed By: #### T SH, FT3, JUANCARLOS, LD, FT4, ADIFF, GFR, ANEU, CBC, CMP #### [place] [id number] FT3on 06-05-2024 Free T3 [Mass/Vol] 3.29 pg/mL Normal 2.30-4.20 [facility] Comment on above: Performed By: #### T SH, FT3, JUANCARLOS, LD, FT4, ADIFF, GFR, ANEU, CBC, CMP #### [address] [address] FT4on 06-05-2024 Free T4 [Mass/Vol] 1.53 ng/dL Normal 0.89-1.76 [facility] Comment on above: Result Comment: No te - New Reference Range in effect 19 Performed By: #### T SH, FT3, JUANCARLOS, LD, FT4, ADIFF, GFR, ANEU, CBC, CMP #### [address] [address] LABORATORYOrdered By: SYSTEM SYSTEM on 06-05-2024 Albumin [...] above: Interpretive Data: T esting performed on [employer] analyzer using enzymatic creatinine methodology. Electrolyte Balance [...] LDHon 06-05-2024 LDH 192 U/L Normal 120-246 [facility] Comment on above: Performed By: #### T SH, FT3, JUANCARLOS, LD, FT4, ADIFF, GFR, ANEU, CBC, CMP #### [address] [address] TSHon 06-05-2024 TSH 1.201 mIU/mL Normal 0.550-4.780 [facility] Comment on above: Performed By: #### T SH, FT3, JUANCARLOS, LD, FT4, ADIFF, GFR, ANEU, CBC, CMP #### [address] [address] .Auto Diffon 04-30-2024 Basophil, Absolute 0.1 10 3/mcL Normal 0.0-0.3 [facility] Comment on above: Performed By: #### T SH, FT3, JUANCARLOS, LD, FT4, ADIFF, GFR, ANEU, CBC, CMP #### [place] [address] Basophils/100 WBC (Bld) 0.8 % Normal 0.0-2.5 [facility] Comment on above: Performed By: #### T SH, FT3, JUANCARLOS, LD, FT4, ADIFF, GFR, ANEU, CBC, CMP #### [place] [id number] Eosinophil, Absolute 0.4 10 3/mcL Normal 0.0-0.7 [facility] Comment on above: Performed By: #### T SH, FT3, JUANCARLOS, LD, FT4, ADIFF, GFR, ANEU, CBC, CMP #### [place] [id number] Eosinophils/100 WBC (Bld) 4.3 % Normal 0.0-6.0 [facility] Comment on above: Performed By: #### T SH, FT3, JUANCARLOS, LD, FT4, ADIFF, GFR, ANEU, CBC, CMP #### [address] [address] Lymphocyte, Absolute 1.6 10 3/mcL Normal 0.9-4.3 [facility] Comment on above: Performed By: #### T SH, FT3, JUANCARLOS, LD, FT4, ADIFF, GFR, ANEU, CBC, CMP #### [address] [address] Lymphocytes/100 WBC (Bld) 19.7 % Low 20.0-40.0 [facility] Comment on above: Performed By: #### T SH, FT3, JUANCARLOS, LD, FT4, ADIFF, GFR, ANEU, CBC, CMP #### [address] [address] Monocyte, Absolute 0.8 10 3/mcL Normal 0.1-1.4 [facility] Comment on above: Performed By: #### T SH, FT3, JUANCARLOS, LD, FT4, ADIFF, GFR, ANEU, CBC, CMP #### [address] [address] Monocytes/100 WBC (Bld) 9.9 % Normal 2.0-13.0 [facility] Comment on above: Performed By: #### T SH, FT3, JUANCARLOS, LD, FT4, ADIFF, GFR, ANEU, CBC, CMP #### [address] [address] Neutrophils/100 WBC (Bld) 65.3 % Normal 50.0-75.0 [facility] Comment on above: Performed By: #### T SH, FT3, JUANCARLOS, LD, FT4, ADIFF, GFR, ANEU, CBC, CMP #### [address] [address] .GFRon 04-30-2024 Estimated Glomerular Filtration Rate 56 ml/min/1.73sqm Normal [facility] Comment on above: Result Comment: Stages [...] FT4, ADIFF, GFR, ANEU, CBC, CMP #### [place] [address] .NEUABSon 04-30-2024 Neutrophil, Absolute 5.4 10 3/mcL Normal 2.3-8.1 [facility] Comment on above: Performed By: #### T SH, FT3, JUANCARLOS, LD, FT4, ADIFF, GFR, ANEU, CBC, CMP #### [place] [address] CBCon 04-30-2024 Erythrocyte distribution width (RBC) [Ratio] 19.8 % High 11.5-15.5 [facility] Comment on above: Performed By: #### T SH, FT3, JUANCARLOS, LD, FT4, ADIFF, GFR, ANEU, CBC, CMP #### [place] [address] Hematocrit (Bld) [Volume fraction] 41.2 % Normal 40.0-52.0 [facility] Comment on above: Performed By: #### T SH, FT3, JUANCARLOS, LD, FT4, ADIFF, GFR, ANEU, CBC, CMP #### [place] [address] Hgb 13.9 G/dL Normal 13.0-17.5 [facility] Comment on above: Performed By: #### T SH, FT3, JUANCARLOS, LD, FT4, ADIFF, GFR, ANEU, CBC, CMP #### [place] [address] MCH (RBC) [Entitic mass] 31.7 pg Normal 27.0-33.0 [facility] Comment on above: Performed By: #### T SH, FT3, JUANCARLOS, LD, FT4, ADIFF, GFR, ANEU, CBC, CMP #### [place] [address] MCHC 33.8 G/dL Normal 32.0-36.0 [facility] Comment on above: Performed By: #### T SH, FT3, JUANCARLOS, LD, FT4, ADIFF, GFR, ANEU, CBC, CMP #### [place] [address] MCV (RBC) [Entitic vol] 93.9 fL Normal 81.0-100.0 [facility] Comment on above: Performed By: #### T SH, FT3, JUANCARLOS, LD, FT4, ADIFF, GFR, ANEU, CBC, CMP #### [place] [address] Platelet 328 10 3/mcL Normal 150-450 [facility] Comment on above: Performed By: #### T SH, FT3, JUANCARLOS, LD, FT4, ADIFF, GFR, ANEU, CBC, CMP #### [place] [address] Platelet mean volume (Bld) [Entitic vol] 6.8 fL Normal 6.4-10.5 [facility] Comment on above: Performed By: #### T SH, FT3, JUANCARLOS, LD, FT4, ADIFF, GFR, ANEU, CBC, CMP #### [place] [address] RBC 4.39 10 6/mcL Low 4.50-6.00 [facility] Comment on above: Performed By: #### T SH, FT3, JUANCARLOS, LD, FT4, ADIFF, GFR, ANEU, CBC, CMP #### [place] [address] WBC 8.3 10 3/mcL Normal 4.5-10.8 [facility] Comment on above: Performed By: #### T SH, FT3, JUANCARLOS, LD, FT4, ADIFF, GFR, ANEU, CBC, CMP #### [address] [address] CMPon 04-30-2024 Albumin Level 3.7 G/dL Normal 3.2-4.8 [facility] Comment on above: Performed By: #### T SH, FT3, JUANCARLOS, LD, FT4, ADIFF, GFR, ANEU, CBC, CMP #### [place] [address] Albumin/Globulin [Mass ratio] 1.1 {ratio} Normal 0.9-1.6 [facility] Comment on above: Performed By: #### T SH, FT3, JUANCARLOS, LD, FT4, ADIFF, GFR, ANEU, CBC, CMP #### [place] [address] ALP [Catalytic activity/Vol] 74 U/L Normal 38-126 [facility] Comment on above: Performed By: #### T SH, FT3, JUANCARLOS, LD, FT4, ADIFF, GFR, ANEU, CBC, CMP #### [address] [address] ALT [Catalytic activity/Vol] 15 U/L Normal 12-55 [facility] Comment on above: Performed By: #### T SH, FT3, JUANCARLOS, LD, FT4, ADIFF, GFR, ANEU, CBC, CMP #### [address] [address] AST [Catalytic activity/Vol] 22 U/L Normal 8-34 [facility] Comment on above: Performed By: #### T SH, FT3, JUANCARLOS, LD, FT4, ADIFF, GFR, ANEU, CBC, CMP #### [place] [id number] Bili Total 0.60 mg/dL Normal 0.20-1.20 [facility] Comment on above: Result Comment: Use of this assay is not recommended for patients undergoing treatment with eltrombopag due to the potential for falsely elevated results. Performed By: #### T SH, FT3, JUANCARLOS, LD, FT4, ADIFF, GFR, ANEU, CBC, CMP #### [place] [id number] BUN/Creatinine Ratio 14.7 ratio Normal 10.0-22.0 [facility] Comment on above: Performed By: #### T SH, FT3, JUANCARLOS, LD, FT4, ADIFF, GFR, ANEU, CBC, CMP #### [place] [id number] Calcium [Mass/Vol] 9.6 mg/dL Normal 8.7-10.4 [facility] Comment on above: Performed By: #### T SH, FT3, JUANCARLOS, LD, FT4, ADIFF, GFR, ANEU, CBC, CMP #### [place] [id number] Chloride [Moles/Vol] 102 mmol/L Normal 98-110 [facility] Comment on above: Performed By: #### T SH, FT3, JUANCARLOS, LD, FT4, ADIFF, GFR, ANEU, CBC, CMP #### [address] [address] CO2 [Moles/Vol] 27 mmol/L Normal 22-32 [facility] Comment on above: Performed By: #### T SH, FT3, JUANCARLOS, LD, FT4, ADIFF, GFR, ANEU, CBC, CMP #### [place] [id number] Creatinine [Mass/Vol] 1.56 mg/dL High 0.60-1.40 [facility] Comment on above: Result Comment: Test ing performed on [employer] analyzer using enzymatic creatinine methodology. Performed By: #### T SH, FT3, JUANCARLOS, LD, FT4, ADIFF, GFR, ANEU, CBC, CMP #### [place] [id number] Electrolyte Balance 8.0 mEq/L Normal 4.0-15.0 [facility] Comment on above: Performed By: #### T SH, FT3, JUANCARLOS, LD, FT4, ADIFF, GFR, ANEU, CBC, CMP #### [place] [id number] Globulin 3.3 G/dL Normal 1.5-3.8 [facility] Comment on above: Performed By: #### T SH, FT3, JUANCARLOS, LD, FT4, ADIFF, GFR, ANEU, CBC, CMP #### [address] [address] Glucose [Mass/Vol] 96 mg/dL Normal 70-110 [facility] Comment on above: Performed By: #### T SH, FT3, JUANCARLOS, LD, FT4, ADIFF, GFR, ANEU, CBC, CMP #### [place] [id number] Potassium [Moles/Vol] 4.3 mmol/L Normal 3.5-5.0 [facility] Comment on above: Performed By: #### T SH, FT3, JUANCARLOS, LD, FT4, ADIFF, GFR, ANEU, CBC, CMP #### [place] [id number] Sodium [Moles/Vol] 137 mmol/L Normal 136-145 [facility] Comment on above: Performed By: #### T SH, FT3, JUANCARLOS, LD, FT4, ADIFF, GFR, ANEU, CBC, CMP #### [address] [address] Total Protein 7.0 G/dL Normal 5.7-8.2 [facility] Comment on above: Performed By: #### T SH, FT3, JUANCARLOS, LD, FT4, ADIFF, GFR, ANEU, CBC, CMP #### [place] [id number] Urea nitrogen [Mass/Vol] 23.0 mg/dL High 8.0-22.0 [facility] Comment on above: Performed By: #### T SH, FT3, JUANCARLOS, LD, FT4, ADIFF, GFR, ANEU, CBC, CMP #### [address] [address] CORTon 04-30-2024 Cortisol Level 8.3 mcg/dL Normal [facility] Comment on above: Result Comment: Juancarlos isol AM Reference Range 6.5-26.0 mcg/dL Cortisol PM Reference Range 3.5-15.0 mcg/dL Performed By: #### T SH, FT3, JUANCARLOS, LD, FT4, ADIFF, GFR, ANEU, CBC, CMP #### [place] [address] FT3on 04-30-2024 Free T3 [Mass/Vol] 4.16 pg/mL Normal 2.30-4.20 [facility] Comment on above: Performed By: #### T SH, FT3, JUANCARLOS, LD, FT4, ADIFF, GFR, ANEU, CBC, CMP #### [place] [address] FT4on 04-30-2024 Free T4 [Mass/Vol] 1.81 ng/dL High 0.89-1.76 [facility] Comment on above: Result Comment: No te - New Reference Range in effect 19 Performed By: #### T SH, FT3, JUANCARLOS, LD, FT4, ADIFF, GFR, ANEU, CBC, CMP #### [place] [address] LABORATORYOrdered By: SYSTEM SYSTEM on 04-30-2024 Albumin [...] above: Interpretive Data: T esting performed on [employer] analyzer using enzymatic creatinine methodology. Electrolyte Balance [...] LDHon 04-30-2024 LDH 189 U/L Normal 120-246 [facility] Comment on above: Performed By: #### T SH, FT3, JUANCARLOS, LD, FT4, ADIFF, GFR, ANEU, CBC, CMP #### [place] [address] TSHon 04-30-2024 TSH 3.504 mIU/mL Normal 0.550-4.780 [facility] Comment on above: Performed By: #### T SH, FT3, JUANCARLOS, LD, FT4, ADIFF, GFR, ANEU, CBC, CMP #### [place] [address] .Auto Diffon 04-02-2024 Basophil, Absolute 0.1 10 3/mcL Normal 0.0-0.3 [facility] Comment on above: Performed By: #### T SH, FT3, JUANCARLOS, LD, FT4, ADIFF, GFR, ANEU, CBC, CMP #### [place] [address] Basophils/100 WBC (Bld) 1.4 % Normal 0.0-2.5 [facility] Comment on above: Performed By: #### T SH, FT3, JUANCARLOS, LD, FT4, ADIFF, GFR, ANEU, CBC, CMP #### [place] [address] Eosinophil, Absolute 0.8 10 3/mcL High 0.0-0.7 [facility] Comment on above: Performed By: #### T SH, FT3, JUANCARLOS, LD, FT4, ADIFF, GFR, ANEU, CBC, CMP #### [address] [address] Eosinophils/100 WBC (Bld) 8.8 % High 0.0-6.0 [facility] Comment on above: Performed By: #### T SH, FT3, JUANCARLOS, LD, FT4, ADIFF, GFR, ANEU, CBC, CMP #### [address] [address] Lymphocyte, Absolute 1.8 10 3/mcL Normal 0.9-4.3 [facility] Comment on above: Performed By: #### T SH, FT3, JUANCARLOS, LD, FT4, ADIFF, GFR, ANEU, CBC, CMP #### [address] [address] Lymphocytes/100 WBC (Bld) 19.0 % Low 20.0-40.0 [facility] Comment on above: Performed By: #### T SH, FT3, JUANCARLOS, LD, FT4, ADIFF, GFR, ANEU, CBC, CMP #### [address] [address] Monocyte, Absolute 0.7 10 3/mcL Normal 0.1-1.4 [facility] Comment on above: Performed By: #### T SH, FT3, JUANCARLOS, LD, FT4, ADIFF, GFR, ANEU, CBC, CMP #### [address] [address] Monocytes/100 WBC (Bld) 7.6 % Normal 2.0-13.0 [facility] Comment on above: Performed By: #### T SH, FT3, JUANCARLOS, LD, FT4, ADIFF, GFR, ANEU, CBC, CMP #### [address] [address] Neutrophils/100 WBC (Bld) 63.2 % Normal 50.0-75.0 [facility] Comment on above: Performed By: #### T SH, FT3, JUANCARLOS, LD, FT4, ADIFF, GFR, ANEU, CBC, CMP #### [address] [address] .GFRon 04-02-2024 Estimated Glomerular Filtration Rate 41 ml/min/1.73sqm Normal [facility] Comment on above: Result Comment: Stages [...] FT4, ADIFF, GFR, ANEU, CBC, CMP #### [address] [address] .NEUABSon 04-02-2024 Neutrophil, Absolute 5.9 10 3/mcL Normal 2.3-8.1 [facility] Comment on above: Performed By: #### T SH, FT3, JUANCARLOS, LD, FT4, ADIFF, GFR, ANEU, CBC, CMP #### [address] [address] CBCon 04-02-2024 Erythrocyte distribution width (RBC) [Ratio] 18.1 % High 11.5-15.5 [facility] Comment on above: Performed By: #### T SH, FT3, JUANCARLOS, LD, FT4, ADIFF, GFR, ANEU, CBC, CMP #### [address] [address] Hematocrit (Bld) [Volume fraction] 41.1 % Normal 40.0-52.0 [facility] Comment on above: Performed By: #### T SH, FT3, JUANCARLOS, LD, FT4, ADIFF, GFR, ANEU, CBC, CMP #### [address] [address] Hgb 13.7 G/dL Normal 13.0-17.5 [facility] Comment on above: Performed By: #### T SH, FT3, JUANCARLOS, LD, FT4, ADIFF, GFR, ANEU, CBC, CMP #### [place] [address] MCH (RBC) [Entitic mass] 30.5 pg Normal 27.0-33.0 [facility] Comment on above: Performed By: #### T SH, FT3, JUANCARLOS, LD, FT4, ADIFF, GFR, ANEU, CBC, CMP #### [place] [address] MCHC 33.3 G/dL Normal 32.0-36.0 [facility] Comment on above: Performed By: #### T SH, FT3, JUANCARLOS, LD, FT4, ADIFF, GFR, ANEU, CBC, CMP #### [place] [address] MCV (RBC) [Entitic vol] 91.7 fL Normal 81.0-100.0 [facility] Comment on above: Performed By: #### T SH, FT3, JUANCARLOS, LD, FT4, ADIFF, GFR, ANEU, CBC, CMP #### [place] [address] Platelet 273 10 3/mcL Normal 150-450 [facility] Comment on above: Performed By: #### T SH, FT3, JUANCARLOS, LD, FT4, ADIFF, GFR, ANEU, CBC, CMP #### [place] [address] Platelet mean volume (Bld) [Entitic vol] 7.5 fL Normal 6.4-10.5 [facility] Comment on above: Performed By: #### T SH, FT3, JUANCARLOS, LD, FT4, ADIFF, GFR, ANEU, CBC, CMP #### [place] [address] RBC 4.48 10 6/mcL Low 4.50-6.00 [facility] Comment on above: Performed By: #### T SH, FT3, JUANCARLOS, LD, FT4, ADIFF, GFR, ANEU, CBC, CMP #### [address] [address] WBC 9.4 10 3/mcL Normal 4.5-10.8 [facility] Comment on above: Performed By: #### T SH, FT3, JUANCARLOS, LD, FT4, ADIFF, GFR, ANEU, CBC, CMP #### [address] [address] CMPon 04-02-2024 Albumin Level 3.6 G/dL Normal 3.2-4.8 [facility] Comment on above: Performed By: #### T SH, FT3, JUANCARLOS, LD, FT4, ADIFF, GFR, ANEU, CBC, CMP #### [place] [id number] Albumin/Globulin [Mass ratio] 1.0 {ratio} Normal 0.9-1.6 [facility] Comment on above: Performed By: #### T SH, FT3, JUANCARLOS, LD, FT4, ADIFF, GFR, ANEU, CBC, CMP #### [place] [id number] ALP [Catalytic activity/Vol] 95 U/L Normal 38-126 [facility] Comment on above: Performed By: #### T SH, FT3, JUANCARLOS, LD, FT4, ADIFF, GFR, ANEU, CBC, CMP #### [address] [address] ALT [Catalytic activity/Vol] 12 U/L Normal 12-55 [facility] Comment on above: Performed By: #### T SH, FT3, JUANCARLOS, LD, FT4, ADIFF, GFR, ANEU, CBC, CMP #### [address] [address] AST [Catalytic activity/Vol] 17 U/L Normal 8-34 [facility] Comment on above: Performed By: #### T SH, FT3, JUANCARLOS, LD, FT4, ADIFF, GFR, ANEU, CBC, CMP #### [place] [id number] Bili Total 0.50 mg/dL Normal 0.20-1.20 [facility] Comment on above: Result Comment: Use of this assay is not recommended for patients undergoing treatment with eltrombopag due to the potential for falsely elevated results. Performed By: #### T SH, FT3, JUANCARLOS, LD, FT4, ADIFF, GFR, ANEU, CBC, CMP #### [place] [address] BUN/Creatinine Ratio 12.9 ratio Normal 10.0-22.0 [facility] Comment on above: Performed By: #### T SH, FT3, JUANCARLOS, LD, FT4, ADIFF, GFR, ANEU, CBC, CMP #### [place] [address] Calcium [Mass/Vol] 9.1 mg/dL Normal 8.7-10.4 [facility] Comment on above: Performed By: #### T SH, FT3, JUANCARLOS, LD, FT4, ADIFF, GFR, ANEU, CBC, CMP #### [place] [id number] Chloride [Moles/Vol] 102 mmol/L Normal 98-110 [facility] Comment on above: Performed By: #### T SH, FT3, JUANCARLOS, LD, FT4, ADIFF, GFR, ANEU, CBC, CMP #### [place] [id number] CO2 [Moles/Vol] 34 mmol/L High 22-32 [facility] Comment on above: Performed By: #### T SH, FT3, JUANCARLOS, LD, FT4, ADIFF, GFR, ANEU, CBC, CMP #### [place] [address] Creatinine [Mass/Vol] 2.02 mg/dL High 0.60-1.40 [facility] Comment on above: Result Comment: Test ing performed on [employer] analyzer using enzymatic creatinine methodology. Performed By: #### T SH, FT3, JUANCARLOS, LD, FT4, ADIFF, GFR, ANEU, CBC, CMP #### [place] [address] Electrolyte Balance 4.0 mEq/L Normal 4.0-15.0 [facility] Comment on above: Performed By: #### T SH, FT3, JUANCARLOS, LD, FT4, ADIFF, GFR, ANEU, CBC, CMP #### [place] [id number] Globulin 3.5 G/dL Normal 1.5-3.8 [facility] Comment on above: Performed By: #### T SH, FT3, JUANCARLOS, LD, FT4, ADIFF, GFR, ANEU, CBC, CMP #### [place] [id number] Glucose [Mass/Vol] 115 mg/dL High 70-110 [facility] Comment on above: Performed By: #### T SH, FT3, JUANCARLOS, LD, FT4, ADIFF, GFR, ANEU, CBC, CMP #### [place] [address] Potassium [Moles/Vol] 4.3 mmol/L Normal 3.5-5.0 [facility] Comment on above: Performed By: #### T SH, FT3, JUANCARLOS, LD, FT4, ADIFF, GFR, ANEU, CBC, CMP #### [place] [address] Sodium [Moles/Vol] 140 mmol/L Normal 136-145 [facility] Comment on above: Performed By: #### T SH, FT3, JUANCARLOS, LD, FT4, ADIFF, GFR, ANEU, CBC, CMP #### [place] [address] Total Protein 7.1 G/dL Normal 5.7-8.2 [facility] Comment on above: Performed By: #### T SH, FT3, JUANCARLOS, LD, FT4, ADIFF, GFR, ANEU, CBC, CMP #### [place] [id number] Urea nitrogen [Mass/Vol] 26.0 mg/dL High 8.0-22.0 [facility] Comment on above: Performed By: #### T SH, FT3, JUANCARLOS, LD, FT4, ADIFF, GFR, ANEU, CBC, CMP #### [place] [id number] CORTon 04-02-2024 Cortisol Level 15.4 mcg/dL Normal [facility] Comment on above: Result Comment: Juancarlos isol AM Reference Range 6.5-26.0 mcg/dL Cortisol PM Reference Range 3.5-15.0 mcg/dL Performed By: #### T SH, FT3, JUANCARLOS, LD, FT4, ADIFF, GFR, ANEU, CBC, CMP #### [place] [address] FT3on 04-02-2024 Free T3 [Mass/Vol] 3.44 pg/mL Normal 2.30-4.20 [facility] Comment on above: Performed By: #### T SH, FT3, JUANCARLOS, LD, FT4, ADIFF, GFR, ANEU, CBC, CMP #### [place] [address] FT4on 04-02-2024 Free T4 [Mass/Vol] 1.62 ng/dL Normal 0.89-1.76 [facility] Comment on above: Result Comment: No te - New Reference Range in effect 19 Performed By: #### T SH, FT3, JUANCARLOS, LD, FT4, ADIFF, GFR, ANEU, CBC, CMP #### [place] [address] LABORATORYOrdered By: SYSTEM SYSTEM on 04-02-2024 Albumin [...] above: Interpretive Data: T esting performed on [employer] analyzer using enzymatic creatinine methodology. Electrolyte Balance [...] LDHon 04-02-2024 LDH 169 U/L Normal 120-246 [facility] Comment on above: Performed By: #### T SH, FT3, JUANCARLOS, LD, FT4, ADIFF, GFR, ANEU, CBC, CMP #### [place] [address] TSHon 04-02-2024 TSH 1.657 mIU/mL Normal 0.550-4.780 [facility] Comment on above: Performed By: #### T SH, FT3, JUANCARLOS, LD, FT4, ADIFF, GFR, ANEU, CBC, CMP #### [place] [address] .Urinalysis Microscopic (AO) on 03-29-2024 UA Bacteria 4+ /hpf Abnormal [facility] Comment on above: Performed By: #### U A, UAMICAO #### [address] [address] UA RBC 0-5 Abnormal None Seen [facility] Comment on above: Performed By: #### U A, UAMICAO #### [address] [address] UA Squam Epithelial 0-5 Abnormal None Seen [facility] Comment on above: Performed By: #### U A, UAMICAO #### [facility] [address] [place], [place] [address] UA WBC 0-5 Abnormal None Seen [facility] Comment on above: Performed By: #### U A, UAMICAO #### [facility] [address] [place], [place] [address] LABORATORYOrdered By: Aishwarya corona on 03-29-2024 Appearance [...] SS UAon 03-29-2024 Color (U) Yellow Normal [facility] Comment on above: Performed By: #### U A, UAMICAO #### [place] [address] Glucose (U) [Mass/Vol] 100 mg/dL Abnormal Negative [facility] Comment on above: Performed By: #### U A, UAMICAO #### [place] [address] Ketones Ql (U) Negative Normal Negative [facility] Comment on above: Performed By: #### U A, UAMICAO #### [place] [address] UA Appear Cloudy Abnormal Clear [facility] Comment on above: Performed By: #### U A, UAM[place]O #### [place] [address] UA Blood Trace Abnormal Negative [facility] Comment on above: Performed By: #### U A, UAMICAO #### [place] [address] UA Leuk Est Negative Normal Negative [facility] Comment on above: Performed By: #### U A, UAM[place]O #### [place] [address] UA Nitrite Negative Normal Negative [facility] Comment on above: Performed By: #### U A, UAM[place]O #### [place] [address] UA pH 5.0 Normal 5.0 - 8.0 [facility] Comment on above: Performed By: #### U A, UAMICAO #### [place] [address] UA Protein Negative Normal Negative [facility] Comment on above: Performed By: #### U A, UAMICAO #### [place] [address] UA Spec Grav 1.010 Abnormal 1.015-1.025 [facility] Comment on above: Performed By: #### U A [place]AM[place]O #### [address] [address] UA Specimen Type Void Normal [facility] Comment on above: Performed By: #### U Nicolas UAM[place]O #### [place] [id number] [place], [place] [address] UA Urobilinogen 0.2 E.U./dL Normal 0.2-1.0 [facility] Comment on above: Performed By: #### U A UAM[place]O #### [address] [address] Urobilinogen (U) [Mass/Vol] Negative Normal Negative [facility] Comment on above: Performed By: #### U Nicolas UAM[place]O #### [address] [address] .Auto Diffon 03-04-2024 Basophil, Absolute 0.1 10 3/mcL Normal 0.0-0.3 [facility] Comment on above: Performed By: #### T SH, FT3, JUANCARLOS, LD, FT4, ADIFF, GFR, ANEU, CBC, CMP #### [address] [address] Basophils/100 WBC (Bld) 0.9 % Normal 0.0-2.5 [facility] Comment on above: Performed By: #### T SH, FT3, JUANCARLOS, LD, FT4, ADIFF, GFR, ANEU, CBC, CMP #### [address] [address] Eosinophil, Absolute 0.5 10 3/mcL Normal 0.0-0.7 [facility] Comment on above: Performed By: #### T SH, FT3, JUANCARLOS, LD, FT4, ADIFF, GFR, ANEU, CBC, CMP #### [address] [address] Eosinophils/100 WBC (Bld) 6.5 % High 0.0-6.0 [facility] Comment on above: Performed By: #### T SH, FT3, JUANCARLOS, LD, FT4, ADIFF, GFR, ANEU, CBC, CMP #### [address] [address] Lymphocyte, Absolute 1.6 10 3/mcL Normal 0.9-4.3 [facility] Comment on above: Performed By: #### T SH, FT3, JUANCARLOS, LD, FT4, ADIFF, GFR, ANEU, CBC, CMP #### [address] [address] Lymphocytes/100 WBC (Bld) 20.8 % Normal 20.0-40.0 [facility] Comment on above: Performed By: #### T SH, FT3, JUANCARLOS, LD, FT4, ADIFF, GFR, ANEU, CBC, CMP #### [address] [address] Monocyte, Absolute 0.5 10 3/mcL Normal 0.1-1.4 [facility] Comment on above: Performed By: #### T SH, FT3, JUANCARLOS, LD, FT4, ADIFF, GFR, ANEU, CBC, CMP #### [address] [address] Monocytes/100 WBC (Bld) 5.9 % Normal 2.0-13.0 [facility] Comment on above: Performed By: #### T SH, FT3, JUANCARLOS, LD, FT4, ADIFF, GFR, ANEU, CBC, CMP #### [address] [address] Neutrophils/100 WBC (Bld) 65.9 % Normal 50.0-75.0 [facility] Comment on above: Performed By: #### T SH, FT3, JUANCARLOS, LD, FT4, ADIFF, GFR, ANEU, CBC, CMP #### [address] [address] .GFRon 03-04-2024 GFR 59 ml/min/1.73sqm Normal [facility] Comment on above: Result Comment: GFR [...] FT4, ADIFF, GFR, ANEU, CBC, CMP #### [address] [address] GFR Non- 49 ml/min/1.73sqm Normal [facility] Comment on above: Result Comment: GFR [...] FT4, ADIFF, GFR, ANEU, CBC, CMP #### [address] [address] .NEUABSon 03-04-2024 Neutrophil, Absolute 5.1 10 3/mcL Normal 2.3-8.1 [facility] Comment on above: Performed By: #### T SH, FT3, JUANCARLOS, LD, FT4, ADIFF, GFR, ANEU, CBC, CMP #### [address] [address] CBCon 03-04-2024 Erythrocyte distribution width (RBC) [Ratio] 14.7 % Normal 11.5-15.5 [facility] Comment on above: Performed By: #### T SH, FT3, JUANCARLOS, LD, FT4, ADIFF, GFR, ANEU, CBC, CMP #### [place] [address] Hematocrit (Bld) [Volume fraction] 41.7 % Normal 40.0-52.0 [facility] Comment on above: Performed By: #### T SH, FT3, JUANCARLOS, LD, FT4, ADIFF, GFR, ANEU, CBC, CMP #### [place] [address] Hgb 14.0 G/dL Normal 13.0-17.5 [facility] Comment on above: Performed By: #### T SH, FT3, JUANCARLOS, LD, FT4, ADIFF, GFR, ANEU, CBC, CMP #### [place] [address] MCH (RBC) [Entitic mass] 30.5 pg Normal 27.0-33.0 [facility] Comment on above: Performed By: #### T SH, FT3, JUANCARLOS, LD, FT4, ADIFF, GFR, ANEU, CBC, CMP #### [place] [address] MCHC 33.5 G/dL Normal 32.0-36.0 [facility] Comment on above: Performed By: #### T SH, FT3, JUANCARLOS, LD, FT4, ADIFF, GFR, ANEU, CBC, CMP #### [place] [address] MCV (RBC) [Entitic vol] 91.2 fL Normal 81.0-100.0 [facility] Comment on above: Performed By: #### T SH, FT3, JUANCARLOS, LD, FT4, ADIFF, GFR, ANEU, CBC, CMP #### [place] [address] Platelet 147 10 3/mcL Low 150-450 [facility] Comment on above: Performed By: #### T SH, FT3, JUANCARLOS, LD, FT4, ADIFF, GFR, ANEU, CBC, CMP #### [place] [address] Platelet mean volume (Bld) [Entitic vol] 7.0 fL Normal 6.4-10.5 [facility] Comment on above: Performed By: #### T SH, FT3, JUANCARLOS, LD, FT4, ADIFF, GFR, ANEU, CBC, CMP #### [address] [address] RBC 4.58 10 6/mcL Normal 4.50-6.00 [facility] Comment on above: Performed By: #### T SH, FT3, JUANCARLOS, LD, FT4, ADIFF, GFR, ANEU, CBC, CMP #### [place] [address] WBC 7.8 10 3/mcL Normal 4.5-10.8 [facility] Comment on above: Performed By: #### T SH, FT3, JUANCARLOS, LD, FT4, ADIFF, GFR, ANEU, CBC, CMP #### [address] [address] CMPon 03-04-2024 Albumin Level 3.4 G/dL Normal 3.2-4.8 [facility] Comment on above: Performed By: #### T SH, FT3, JUANCARLOS, LD, FT4, ADIFF, GFR, ANEU, CBC, CMP #### [place] [id number] Albumin/Globulin [Mass ratio] 0.9 {ratio} Normal 0.9-1.6 [facility] Comment on above: Performed By: #### T SH, FT3, JUANCARLOS, LD, FT4, ADIFF, GFR, ANEU, CBC, CMP #### [address] [address] ALP [Catalytic activity/Vol] 98 U/L Normal 38-126 [facility] Comment on above: Performed By: #### T SH, FT3, JUANCARLOS, LD, FT4, ADIFF, GFR, ANEU, CBC, CMP #### [place] [id number] ALT [Catalytic activity/Vol] 17 U/L Normal 12-55 [facility] Comment on above: Performed By: #### T SH, FT3, JUANCARLOS, LD, FT4, ADIFF, GFR, ANEU, CBC, CMP #### [address] [address] AST [Catalytic activity/Vol] 13 U/L Normal 8-34 [facility] Comment on above: Performed By: #### T SH, FT3, JUANCARLOS, LD, FT4, ADIFF, GFR, ANEU, CBC, CMP #### [address] [address] Bili Total 0.40 mg/dL Normal 0.20-1.20 [facility] Comment on above: Result Comment: Use of this assay is not recommended for patients undergoing treatment with eltrombopag due to the potential for falsely elevated results. Performed By: #### T SH, FT3, JUANCARLOS, LD, FT4, ADIFF, GFR, ANEU, CBC, CMP #### [place] [id number] BUN/Creatinine Ratio 16.8 ratio Normal 10.0-22.0 [facility] Comment on above: Performed By: #### T SH, FT3, JUANCARLOS, LD, FT4, ADIFF, GFR, ANEU, CBC, CMP #### [address] [address] Calcium [Mass/Vol] 9.3 mg/dL Normal 8.7-10.4 [facility] Comment on above: Performed By: #### T SH, FT3, JUANCARLOS, LD, FT4, ADIFF, GFR, ANEU, CBC, CMP #### [address] [address] Chloride [Moles/Vol] 104 mmol/L Normal 98-110 [facility] Comment on above: Performed By: #### T SH, FT3, JUANCARLOS, LD, FT4, ADIFF, GFR, ANEU, CBC, CMP #### [address] [address] CO2 [Moles/Vol] 29 mmol/L Normal 22-32 [facility] Comment on above: Performed By: #### T SH, FT3, JUANCARLOS, LD, FT4, ADIFF, GFR, ANEU, CBC, CMP #### [address] [address] Creatinine [Mass/Vol] 1.55 mg/dL High 0.60-1.40 [facility] Comment on above: Result Comment: Test ing performed on [employer] analyzer using enzymatic creatinine methodology. Performed By: #### T SH, FT3, JUANCARLOS, LD, FT4, ADIFF, GFR, ANEU, CBC, CMP #### [place] [id number] Electrolyte Balance 9.0 mEq/L Normal 4.0-15.0 [facility] Comment on above: Performed By: #### T SH, FT3, JUANCARLOS, LD, FT4, ADIFF, GFR, ANEU, CBC, CMP #### [place] [id number] Globulin 3.9 G/dL High 1.5-3.8 [facility] Comment on above: Performed By: #### T SH, FT3, JUANCARLOS, LD, FT4, ADIFF, GFR, ANEU, CBC, CMP #### [place] [id number] Glucose [Mass/Vol] 144 mg/dL High 70-110 [facility] Comment on above: Performed By: #### T SH, FT3, JUANCARLOS, LD, FT4, ADIFF, GFR, ANEU, CBC, CMP #### [place] [id number] Potassium [Moles/Vol] 3.6 mmol/L Normal 3.5-5.0 [facility] Comment on above: Performed By: #### T SH, FT3, JUANCARLOS, LD, FT4, ADIFF, GFR, ANEU, CBC, CMP #### [address] [address] Sodium [Moles/Vol] 142 mmol/L Normal 136-145 [facility] Comment on above: Performed By: #### T SH, FT3, JUANCARLOS, LD, FT4, ADIFF, GFR, ANEU, CBC, CMP #### [place] [id number] Total Protein 7.3 G/dL Normal 5.7-8.2 [facility] Comment on above: Performed By: #### T SH, FT3, JUANCARLOS, LD, FT4, ADIFF, GFR, ANEU, CBC, CMP #### [place] [address] Urea nitrogen [Mass/Vol] 26.0 mg/dL High 8.0-22.0 [facility] Comment on above: Performed By: #### T SH, FT3, JUANCARLOS, LD, FT4, ADIFF, GFR, ANEU, CBC, CMP #### [place] [address] CORTon 03-04-2024 Cortisol Level 17.4 mcg/dL Normal [facility] Comment on above: Result Comment: Juancarlos isol AM Reference Range 6.5-26.0 mcg/dL Cortisol PM Reference Range 3.5-15.0 mcg/dL Performed By: #### T SH, FT3, JUANCARLOS, LD, FT4, ADIFF, GFR, ANEU, CBC, CMP #### [place] [address] FT3on 03-04-2024 Free T3 [Mass/Vol] 3.21 pg/mL Normal 2.30-4.20 [facility] Comment on above: Performed By: #### T SH, FT3, JUANCARLOS, LD, FT4, ADIFF, GFR, ANEU, CBC, CMP #### [place] [address] FT4on 03-04-2024 Free T4 [Mass/Vol] 1.35 ng/dL Normal 0.89-1.76 [facility] Comment on above: Result Comment: No te - New Reference Range in effect 19 Performed By: #### T SH, FT3, JUANCARLOS, LD, FT4, ADIFF, GFR, ANEU, CBC, CMP #### [place] [address] LABORATORYOrdered By: SYSTEM SYSTEM on 03-04-2024 Albumin [...] above: Interpretive Data: T esting performed on [employer] analyzer using enzymatic creatinine methodology. Electrolyte Balance [...] ng/dL Normal 0.89 - 1. 76 ng/dL [facility] Comment on above: Interpretive Data: * *Note - New Reference Range in effect 19 GFR/1.73 sq M.predicted among blacks MDRD (S/P/Bld) [Vol rate/Area] 59 ml/min/1.73sqm Invalid Interpretation Code [facility] Comment on above: Interpretive Data: GFR [...] [Vol rate/Area] 49 ml/min/1.73sqm Invalid Interpretation Code [facility] Comment on above: Interpretive Data: GFR [...] 3.9 G/dL High 1.5 - 3.8 G/dL [facility] Glucose [Mass/Vol] 144 mg/dL High 70 - 110 mg/dL [facility] Hematocrit (Bld) [Volume fraction] 41.7 % [...] LDHon 03-04-2024 LDH 145 U/L Normal 120-246 [facility] Comment on above: Performed By: #### T SH, FT3, JUANCARLOS, LD, FT4, ADIFF, GFR, ANEU, CBC, CMP #### [facility] [address] [place] [address] TSHon 03-04-2024 TSH 1.424 mIU/mL Normal 0.550-4.780 [facility] Comment on above: Performed By: #### T SH, FT3, JUANCARLOS, LD, FT4, ADIFF, GFR, ANEU, CBC, CMP #### [facility] [address] [place] [address] US SOFT TISSUE MASS OF RT AR [...] 03/02/2024 10:29:59 AM Ordering Provider: PROSPER Green [facility] .Auto Diffon 12-23-2024 Basophil, Absolute 0.1 10 3/mcL Normal 0.0-0.3 [facility] Comment on above: Performed By: #### T SH, FT3, JUANCARLOS, LD, FT4, ADIFF, GFR, ANEU, CBC, CMP #### [address] [address] Basophils/100 WBC (Bld) 0.8 % Normal 0.0-2.5 [facility] Comment on above: Performed By: #### T SH, FT3, JUANCARLOS, LD, FT4, ADIFF, GFR, ANEU, CBC, CMP #### [address] [address] Eosinophil, Absolute 0.7 10 3/mcL Normal 0.0-0.7 [facility] Comment on above: Performed By: #### T SH, FT3, JUANCARLOS, LD, FT4, ADIFF, GFR, ANEU, CBC, CMP #### [address] [address] Eosinophils/100 WBC (Bld) 6.7 % High 0.0-6.0 [facility] Comment on above: Performed By: #### T SH, FT3, JUANCARLOS, LD, FT4, ADIFF, GFR, ANEU, CBC, CMP #### [address] [address] Lymphocyte, Absolute 1.8 10 3/mcL Normal 0.9-4.3 [facility] Comment on above: Performed By: #### T SH, FT3, JUANCARLOS, LD, FT4, ADIFF, GFR, ANEU, CBC, CMP #### [address] [address] Lymphocytes/100 WBC (Bld) 16.7 % Low 20.0-40.0 [facility] Comment on above: Performed By: #### T SH, FT3, JUANCARLOS, LD, FT4, ADIFF, GFR, ANEU, CBC, CMP #### [address] [address] Monocyte, Absolute 0.9 10 3/mcL Normal 0.1-1.4 [facility] Comment on above: Performed By: #### T SH, FT3, JUANCARLOS, LD, FT4, ADIFF, GFR, ANEU, CBC, CMP #### [address] [address] Monocytes/100 WBC (Bld) 8.2 % Normal 2.0-13.0 [facility] Comment on above: Performed By: #### T SH, FT3, JUANCARLOS, LD, FT4, ADIFF, GFR, ANEU, CBC, CMP #### [address] [address] Neutrophils/100 WBC (Bld) 67.6 % Normal 50.0-75.0 [facility] Comment on above: Performed By: #### T SH, FT3, JUANCARLOS, LD, FT4, ADIFF, GFR, ANEU, CBC, CMP #### [address] [address] .GFRon 02-05-2024 GFR Non- 40 ml/min/1.73sqm [facility] Comment on above: Result Comment: GFR [...] FT4, ADIFF, GFR, ANEU, CBC, CMP #### [address] [address] GFR 48 ml/min/1.73sqm [facility] Comment on above: Result Comment: GFR [...] FT4, ADIFF, GFR, ANEU, CBC, CMP #### [place] [id number] .NEUABSon 02-05-2024 Neutrophil, Absolute 7.3 10 3/mcL Normal 2.3-8.1 [facility] Comment on above: Performed By: #### T SH, FT3, JUANCARLOS, LD, FT4, ADIFF, GFR, ANEU, CBC, CMP #### [place] [address] CBCon 02-05-2024 Erythrocyte distribution width (RBC) [Ratio] 15.5 % Normal 11.5-15.5 [facility] Comment on above: Performed By: #### T SH, FT3, JUANCARLOS, LD, FT4, ADIFF, GFR, ANEU, CBC, CMP #### [place] [address] Hematocrit (Bld) [Volume fraction] 45.5 % Normal 40.0-52.0 [facility] Comment on above: Performed By: #### T SH, FT3, JUANCARLOS, LD, FT4, ADIFF, GFR, ANEU, CBC, CMP #### [place] [address] Hgb 15.3 G/dL Normal 13.0-17.5 [facility] Comment on above: Performed By: #### T SH, FT3, JUANCARLOS, LD, FT4, ADIFF, GFR, ANEU, CBC, CMP #### [place] [address] MCH (RBC) [Entitic mass] 31.3 pg Normal 27.0-33.0 [facility] Comment on above: Performed By: #### T SH, FT3, JUANCARLOS, LD, FT4, ADIFF, GFR, ANEU, CBC, CMP #### [address] [address] MCHC 33.7 G/dL Normal 32.0-36.0 [facility] Comment on above: Performed By: #### T SH, FT3, JUANCARLOS, LD, FT4, ADIFF, GFR, ANEU, CBC, CMP #### [place] [address] MCV (RBC) [Entitic vol] 93.0 fL Normal 81.0-100.0 [facility] Comment on above: Performed By: #### T SH, FT3, JUANCARLOS, LD, FT4, ADIFF, GFR, ANEU, CBC, CMP #### [place] [address] Platelet 308 10 3/mcL Normal 150-450 [facility] Comment on above: Performed By: #### T SH, FT3, JUANCARLOS, LD, FT4, ADIFF, GFR, ANEU, CBC, CMP #### [place] [address] Platelet mean volume (Bld) [Entitic vol] 7.1 fL Normal 6.4-10.5 [facility] Comment on above: Performed By: #### T SH, FT3, JUANCARLOS, LD, FT4, ADIFF, GFR, ANEU, CBC, CMP #### [place] [id number] RBC 4.89 10 6/mcL Normal 4.50-6.00 [facility] Comment on above: Performed By: #### T SH, FT3, JUANCARLOS, LD, FT4, ADIFF, GFR, ANEU, CBC, CMP #### [place] [id number] WBC 10.8 10 3/mcL Normal 4.5-10.8 [facility] Comment on above: Performed By: #### T SH, FT3, JUANCARLOS, LD, FT4, ADIFF, GFR, ANEU, CBC, CMP #### [address] [address] CMPon 02-05-2024 Albumin Level 3.6 G/dL Normal 3.2-4.8 [facility] Comment on above: Performed By: #### T SH, FT3, JUANCARLOS, LD, FT4, ADIFF, GFR, ANEU, CBC, CMP #### [place] [address] Albumin/Globulin [Mass ratio] 0.9 {ratio} Normal 0.9-1.6 [facility] Comment on above: Performed By: #### T SH, FT3, JUANCARLOS, LD, FT4, ADIFF, GFR, ANEU, CBC, CMP #### [place] [address] ALP [Catalytic activity/Vol] 102 U/L Normal 38-126 [facility] Comment on above: Performed By: #### T SH, FT3, JUANCARLOS, LD, FT4, ADIFF, GFR, ANEU, CBC, CMP #### [place] [address] ALT [Catalytic activity/Vol] 17 U/L Normal 12-55 [facility] Comment on above: Performed By: #### T SH, FT3, JUANCARLOS, LD, FT4, ADIFF, GFR, ANEU, CBC, CMP #### [place] [id number] AST [Catalytic activity/Vol] 19 U/L Normal 8-34 [facility] Comment on above: Performed By: #### T SH, FT3, JUANCARLOS, LD, FT4, ADIFF, GFR, ANEU, CBC, CMP #### [place] [id number] Bili Total 0.50 mg/dL Normal 0.20-1.20 [facility] Comment on above: Result Comment: Use of this assay is not recommended for patients undergoing treatment with eltrombopag due to the potential for falsely elevated results. Performed By: #### T SH, FT3, JUANCARLOS, LD, FT4, ADIFF, GFR, ANEU, CBC, CMP #### [place] [address] BUN/Creatinine Ratio 14.6 ratio Normal 10.0-22.0 [facility] Comment on above: Performed By: #### T SH, FT3, JUANCARLOS, LD, FT4, ADIFF, GFR, ANEU, CBC, CMP #### [address] [address] Calcium [Mass/Vol] 9.3 mg/dL Normal 8.7-10.4 [facility] Comment on above: Performed By: #### T SH, FT3, JUANCARLOS, LD, FT4, ADIFF, GFR, ANEU, CBC, CMP #### [address] [address] Chloride [Moles/Vol] 104 mmol/L Normal 98-110 [facility] Comment on above: Performed By: #### T SH, FT3, JUANCARLOS, LD, FT4, ADIFF, GFR, ANEU, CBC, CMP #### [address] [address] CO2 [Moles/Vol] 27 mmol/L Normal 22-32 [facility] Comment on above: Performed By: #### T SH, FT3, JUANCARLOS, LD, FT4, ADIFF, GFR, ANEU, CBC, CMP #### [address] [address] Creatinine [Mass/Vol] 1.85 mg/dL High 0.60-1.40 [facility] Comment on above: Result Comment: Test ing performed on [employer] analyzer using enzymatic creatinine methodology. Performed By: #### T SH, FT3, JUANCARLOS, LD, FT4, ADIFF, GFR, ANEU, CBC, CMP #### [address] [address] Electrolyte Balance 5.0 mEq/L Normal 4.0-15.0 [facility] Comment on above: Performed By: #### T SH, FT3, JUANCARLOS, LD, FT4, ADIFF, GFR, ANEU, CBC, CMP #### [address] [address] Globulin 4.0 G/dL High 1.5-3.8 [facility] Comment on above: Performed By: #### T SH, FT3, JUANCARLOS, LD, FT4, ADIFF, GFR, ANEU, CBC, CMP #### [address] [address] Glucose [Mass/Vol] 105 mg/dL Normal 70-110 [facility] Comment on above: Performed By: #### T SH, FT3, JUANCARLOS, LD, FT4, ADIFF, GFR, ANEU, CBC, CMP #### [place] [id number] Potassium [Moles/Vol] 3.7 mmol/L Normal 3.5-5.0 [facility] Comment on above: Performed By: #### T SH, FT3, JUANCARLOS, LD, FT4, ADIFF, GFR, ANEU, CBC, CMP #### [place] [id number] Sodium [Moles/Vol] 136 mmol/L Normal 136-145 [facility] Comment on above: Performed By: #### T SH, FT3, JUANCARLOS, LD, FT4, ADIFF, GFR, ANEU, CBC, CMP #### [place] [id number] Total Protein 7.6 G/dL Normal 5.7-8.2 [facility] Comment on above: Performed By: #### T SH, FT3, JUANCARLOS, LD, FT4, ADIFF, GFR, ANEU, CBC, CMP #### [place] [id number] Urea nitrogen [Mass/Vol] 27.0 mg/dL High 8.0-22.0 [facility] Comment on above: Performed By: #### T SH, FT3, JUANCARLOS, LD, FT4, ADIFF, GFR, ANEU, CBC, CMP #### [place] [id number] CORTon 02-05-2024 Cortisol Level 18.8 mcg/dL Normal [facility] Comment on above: Result Comment: Juancarlos isol AM Reference Range 6.5-26.0 mcg/dL Cortisol PM Reference Range 3.5-15.0 mcg/dL Performed By: #### T SH, FT3, JUANCARLOS, LD, FT4, ADIFF, GFR, ANEU, CBC, CMP #### [place] [address] FT3on 02-05-2024 Free T3 [Mass/Vol] 3.95 pg/mL Normal 2.30-4.20 [facility] Comment on above: Performed By: #### T SH, FT3, JUANCARLOS, LD, FT4, ADIFF, GFR, ANEU, CBC, CMP #### [place] [address] FT4on 02-05-2024 Free T4 [Mass/Vol] 1.24 ng/dL Normal 0.89-1.76 [facility] Comment on above: Result Comment: No te - New Reference Range in effect 19 Performed By: #### T SH, FT3, JUANCARLOS, LD, FT4, ADIFF, GFR, ANEU, CBC, CMP #### [place] [address] LABORATORYOrdered By: SYSTEM SYSTEM on 02-05-2024 Albumin [...] above: Interpretive Data: T esting performed on [employer] analyzer using enzymatic creatinine methodology. Electrolyte Balance [...] LDHon 02-05-2024 LDH 180 U/L Normal 120-246 [facility] Comment on above: Performed By: #### T SH, FT3, JUANCARLOS, LD, FT4, ADIFF, GFR, ANEU, CBC, CMP #### [address] [address] TSHon 02-05-2024 TSH 2.225 mIU/mL Normal 0.550-4.780 [facility] Comment on above: Performed By: #### T SH, FT3, JUANCARLOS, LD, FT4, ADIFF, GFR, ANEU, CBC, CMP #### [facility] [address] [place] [address] LEVOFLOXACIN:SUSC:PT:ISOLATE :ORDQN:MICon 01-31-2024 levoFLOXacin KEN [Susc] Few Enterococcus faecalis Heavy normal skin monie present. Sensitivity testing not indicated. [facility] levoFLOXacin KEN [Susc]on Enterococcus faecalis Enterococcus faecalis [facility] GS 1+ Polymorphonuclear cells Rare Gram Positive [facility] CT THORAX W/O CONTRASTon CT THORAX [...] Sign Date: 01/22/2024 4:37:16 PM Ordering Provider: [facility] CT ABDOMEN/PELVIS W/O CONTRA STon 01-19-2024 CT [...] Sign Date: 01/19/2024 4:19:39 PM Ordering Provider: [facility] .Auto Diffon 12-21-2023 Basophil, Absolute 0.1 10 3/mcL Normal 0.0-0.3 [facility] Comment on above: Performed By: #### T SH, FT3, JUANCARLOS, LD, FT4, ADIFF, GFR, ANEU, CBC, CMP #### [address] [address] Basophils/100 WBC (Bld) 0.8 % Normal 0.0-2.5 [facility] Comment on above: Performed By: #### T SH, FT3, JUANCARLOS, LD, FT4, ADIFF, GFR, ANEU, CBC, CMP #### [address] [address] Eosinophil, Absolute 0.7 10 3/mcL Normal 0.0-0.7 [facility] Comment on above: Performed By: #### T SH, FT3, JUANCARLOS, LD, FT4, ADIFF, GFR, ANEU, CBC, CMP #### [address] [address] Eosinophils/100 WBC (Bld) 5.4 % Normal 0.0-6.0 [facility] Comment on above: Performed By: #### T SH, FT3, JUANCARLOS, LD, FT4, ADIFF, GFR, ANEU, CBC, CMP #### [address] [address] Lymphocyte, Absolute 1.4 10 3/mcL Normal 0.9-4.3 [facility] Comment on above: Performed By: #### T SH, FT3, JUANCARLOS, LD, FT4, ADIFF, GFR, ANEU, CBC, CMP #### [address] [address] Lymphocytes/100 WBC (Bld) 11.0 % Low 20.0-40.0 [facility] Comment on above: Performed By: #### T SH, FT3, JUANCARLOS, LD, FT4, ADIFF, GFR, ANEU, CBC, CMP #### [address] [address] Monocyte, Absolute 1.1 10 3/mcL Normal 0.1-1.4 [facility] Comment on above: Performed By: #### T SH, FT3, JUANCARLOS, LD, FT4, ADIFF, GFR, ANEU, CBC, CMP #### [address] [address] Monocytes/100 WBC (Bld) 8.6 % Normal 2.0-13.0 [facility] Comment on above: Performed By: #### T SH, FT3, JUANCARLOS, LD, FT4, ADIFF, GFR, ANEU, CBC, CMP #### [address] [address] Neutrophils/100 WBC (Bld) 74.2 % Normal 50.0-75.0 [facility] Comment on above: Performed By: #### T SH, FT3, JUANCARLOS, LD, FT4, ADIFF, GFR, ANEU, CBC, CMP #### [address] [address] .GFRon 12-21-2023 GFR Non- 49 ml/min/1.73sqm [facility] Comment on above: Result Comment: GFR [...] FT4, ADIFF, GFR, ANEU, CBC, CMP #### [address] [address] GFR 60 ml/min/1.73sqm [facility] Comment on above: Result Comment: GFR [...] FT4, ADIFF, GFR, ANEU, CBC, CMP #### [address] [address] .NEUABSon 12-21-2023 Neutrophil, Absolute 9.3 10 3/mcL High 2.3-8.1 [facility] Comment on above: Performed By: #### T SH, FT3, JUANCARLOS, LD, FT4, ADIFF, GFR, ANEU, CBC, CMP #### [place] [address] CBCon 12-21-2023 Erythrocyte distribution width (RBC) [Ratio] 16.5 % High 11.5-15.5 [facility] Comment on above: Performed By: #### T SH, FT3, JUANCARLOS, LD, FT4, ADIFF, GFR, ANEU, CBC, CMP #### [place] [address] Hematocrit (Bld) [Volume fraction] 44.8 % Normal 40.0-52.0 [facility] Comment on above: Performed By: #### T SH, FT3, JUANCARLOS, LD, FT4, ADIFF, GFR, ANEU, CBC, CMP #### [place] [address] Hgb 15.3 G/dL Normal 13.0-17.5 [facility] Comment on above: Performed By: #### T SH, FT3, JUANCARLOS, LD, FT4, ADIFF, GFR, ANEU, CBC, CMP #### [place] [address] MCH (RBC) [Entitic mass] 31.7 pg Normal 27.0-33.0 [facility] Comment on above: Performed By: #### T SH, FT3, JUANCARLOS, LD, FT4, ADIFF, GFR, ANEU, CBC, CMP #### [place] [address] MCHC 34.1 G/dL Normal 32.0-36.0 [facility] Comment on above: Performed By: #### T SH, FT3, JUANCARLOS, LD, FT4, ADIFF, GFR, ANEU, CBC, CMP #### [place] [address] MCV (RBC) [Entitic vol] 93.0 fL Normal 81.0-100.0 [facility] Comment on above: Performed By: #### T SH, FT3, JUANCARLOS, LD, FT4, ADIFF, GFR, ANEU, CBC, CMP #### [place] [address] Platelet 248 10 3/mcL Normal 150-450 [facility] Comment on above: Performed By: #### T SH, FT3, JUANCARLOS, LD, FT4, ADIFF, GFR, ANEU, CBC, CMP #### [place] [address] Platelet mean volume (Bld) [Entitic vol] 7.6 fL Normal 6.4-10.5 [facility] Comment on above: Performed By: #### T SH, FT3, JUANCARLOS, LD, FT4, ADIFF, GFR, ANEU, CBC, CMP #### [place] [address] RBC 4.82 10 6/mcL Normal 4.50-6.00 [facility] Comment on above: Performed By: #### T SH, FT3, JUANCARLOS, LD, FT4, ADIFF, GFR, ANEU, CBC, CMP #### [place] [address] WBC 12.5 10 3/mcL High 4.5-10.8 [facility] Comment on above: Performed By: #### T SH, FT3, JUANCARLOS, LD, FT4, ADIFF, GFR, ANEU, CBC, CMP #### [place] [address] CMPon 12-21-2023 Albumin Level 3.4 G/dL Normal 3.2-4.8 [facility] Comment on above: Performed By: #### T SH, FT3, JUANCARLOS, LD, FT4, ADIFF, GFR, ANEU, CBC, CMP #### [place] [address] Albumin/Globulin [Mass ratio] 0.8 {ratio} Low 0.9-1.6 [facility] Comment on above: Performed By: #### T SH, FT3, JUANCARLOS, LD, FT4, ADIFF, GFR, ANEU, CBC, CMP #### [place] [address] ALP [Catalytic activity/Vol] 106 U/L Normal 38-126 [facility] Comment on above: Performed By: #### T SH, FT3, JUANCARLOS, LD, FT4, ADIFF, GFR, ANEU, CBC, CMP #### [place] [address] ALT [Catalytic activity/Vol] 9 U/L Low 12-55 [facility] Comment on above: Performed By: #### T SH, FT3, JUANCARLOS, LD, FT4, ADIFF, GFR, ANEU, CBC, CMP #### [place] [id number] AST [Catalytic activity/Vol] 11 U/L Normal 8-34 [facility] Comment on above: Performed By: #### T SH, FT3, JUANCARLOS, LD, FT4, ADIFF, GFR, ANEU, CBC, CMP #### [place] [address] Bili Total 0.80 mg/dL Normal 0.20-1.20 [facility] Comment on above: Result Comment: Use of this assay is not recommended for patients undergoing treatment with eltrombopag due to the potential for falsely elevated results. Performed By: #### T SH, FT3, JUANCARLOS, LD, FT4, ADIFF, GFR, ANEU, CBC, CMP #### [place] [address] BUN/Creatinine Ratio 15.6 ratio Normal 10.0-22.0 [facility] Comment on above: Performed By: #### T SH, FT3, JUANCARLOS, LD, FT4, ADIFF, GFR, ANEU, CBC, CMP #### [place] [id number] Calcium [Mass/Vol] 9.9 mg/dL Normal 8.7-10.4 [facility] Comment on above: Performed By: #### T SH, FT3, JUANCARLOS, LD, FT4, ADIFF, GFR, ANEU, CBC, CMP #### [place] [id number] Chloride [Moles/Vol] 104 mmol/L Normal 98-110 [facility] Comment on above: Performed By: #### T SH, FT3, JUANCARLOS, LD, FT4, ADIFF, GFR, ANEU, CBC, CMP #### [place] [id number] CO2 [Moles/Vol] 31 mmol/L Normal 22-32 [facility] Comment on above: Performed By: #### T SH, FT3, JUANCARLOS, LD, FT4, ADIFF, GFR, ANEU, CBC, CMP #### [place] [address] Creatinine [Mass/Vol] 1.54 mg/dL High 0.60-1.40 [facility] Comment on above: Result Comment: Test ing performed on [employer] analyzer using enzymatic creatinine methodology. Performed By: #### T SH, FT3, JUANCARLOS, LD, FT4, ADIFF, GFR, ANEU, CBC, CMP #### [place] [address] Electrolyte Balance 6.0 mEq/L Normal 4.0-15.0 [facility] Comment on above: Performed By: #### T SH, FT3, JUANCARLOS, LD, FT4, ADIFF, GFR, ANEU, CBC, CMP #### [place] [id number] Globulin 4.2 G/dL High 1.5-3.8 [facility] Comment on above: Performed By: #### T SH, FT3, JUANCARLOS, LD, FT4, ADIFF, GFR, ANEU, CBC, CMP #### [address] [address] Glucose [Mass/Vol] 118 mg/dL High 70-110 [facility] Comment on above: Performed By: #### T SH, FT3, JUANCARLOS, LD, FT4, ADIFF, GFR, ANEU, CBC, CMP #### [address] [address] Potassium [Moles/Vol] 3.7 mmol/L Normal 3.5-5.0 [facility] Comment on above: Performed By: #### T SH, FT3, JUANCARLOS, LD, FT4, ADIFF, GFR, ANEU, CBC, CMP #### [place] [id number] Sodium [Moles/Vol] 141 mmol/L Normal 136-145 [facility] Comment on above: Performed By: #### T SH, FT3, JUANCARLOS, LD, FT4, ADIFF, GFR, ANEU, CBC, CMP #### [place] [id number] Total Protein 7.6 G/dL Normal 5.7-8.2 [facility] Comment on above: Performed By: #### T SH, FT3, JUANCARLOS, LD, FT4, ADIFF, GFR, ANEU, CBC, CMP #### [place] [id number] Urea nitrogen [Mass/Vol] 24.0 mg/dL High 8.0-22.0 [facility] Comment on above: Performed By: #### T SH, FT3, JUANCARLOS, LD, FT4, ADIFF, GFR, ANEU, CBC, CMP #### [address] [address] CORTon 12-21-2023 Cortisol Level 27.9 mcg/dL Normal [facility] Comment on above: Result Comment: Juancarlos isol AM Reference Range 6.5-26.0 mcg/dL Cortisol PM Reference Range 3.5-15.0 mcg/dL Performed By: #### T SH, FT3, JUANCARLOS, LD, FT4, ADIFF, GFR, ANEU, CBC, CMP #### [address] [address] FT3on 12-21-2023 Free T3 [Mass/Vol] 3.25 pg/mL Normal 2.30-4.20 [facility] Comment on above: Performed By: #### T SH, FT3, JUANCARLOS, LD, FT4, ADIFF, GFR, ANEU, CBC, CMP #### [address] [address] FT4on 12-21-2023 Free T4 [Mass/Vol] 1.34 ng/dL Normal 0.89-1.76 [facility] Comment on above: Result Comment: No te - New Reference Range in effect 19 Performed By: #### T SH, FT3, JUANCARLOS, LD, FT4, ADIFF, GFR, ANEU, CBC, CMP #### [address] [address] LABORATORYOrdered By: SYSTEM SYSTEM on 12-21-2023 Albumin [...] above: Interpretive Data: T esting performed on [employer] analyzer using enzymatic creatinine methodology. Electrolyte Balance [...] LDHon 12-21-2023 LDH 143 U/L Normal 120-246 [facility] Comment on above: Performed By: #### T SH, FT3, JUANCARLOS, LD, FT4, ADIFF, GFR, ANEU, CBC, CMP #### [address] [address] TSHon 12-21-2023 TSH 2.088 mIU/mL Normal 0.550-4.780 [facility] Comment on above: Performed By: #### T SH, FT3, JUANCARLOS, LD, FT4, ADIFF, GFR, ANEU, CBC, CMP #### [address] [address] LABORATORYOrdered By: Thee Black on 11-30-2023 Cholesterol [...] CNPNon 11-16-2023 CNPN Telephone (PMNA11) LYNDSAY LOPEZ ([id number]) 1980 M Date Time Provider Department 11/16/23 SHYANNE DOCKERY PMNA11 During your visit today, we recorded the following information about you: Shyanne Dockery 11/16/2023 11:19 AM Signed Referring: Images on the way Referring Provider: NOAH SEPULVEDA [[id number]] Allergies As of Date: 11/16/2023 (Not on File) Date Reviewed: Never Reviewed Reason for Visit: New CTEPH Referral [Other] Problem List As Of Date: 11/16/2023 (None) Encounter Status:Closed by SHYANNE DOCKERY on 11/22/23 Normal [facility] LABORATORYOrdered By: SYSTEM SYSTEM on 11-16-2023 [...] above: Interpretive Data: T esting performed on [employer] analyzer using enzymatic creatinine methodology. Electrolyte Balance [...] [Vol rate/Area] 52 ml/min/1.73sqm Invalid Interpretation Code [facility] Comment on above: Interpretive Data: GFR [...] [Vol rate/Area] 43 ml/min/1.73sqm Invalid Interpretation Code [facility] Comment on above: Interpretive Data: GFR [...] 3.9 G/dL High 1.5 - 3.8 G/dL [facility] Glucose [Mass/Vol] 108 mg/dL Normal 70 - 110 mg/dL [facility] Hematocrit (Bld) [Volume fraction] 48.9 % Normal 40.0 - 52.0 % [facility] Hemoglobin (Bld) [Mass/Vol] 16.5 G/dL Normal 13.0 [...] Comment on above: Interpretive Data: Cindy briggs [employer] (CHEST, 1991, [id number]) recommended therapeutic range for oral anticoagulant therapy is: LOW RISK: Prophylaxis of venous thrombosis INR: 2.0-3.0 Treatment of pulmonary embolism 2.0-3.0 Prevention of systemic embolism 2.0-3.0 HIGH RISK: Mechanical prosthetic valves 2.5-3.5 .Auto Diffon 10-19-2023 Basophil, Absolute 0.1 10 3/mcL Normal 0.0-0.3 [facility] ([place] Comment on above: Performed By: #### C MP, ADIFF, GFR, TSH, FT3, FT4, CBC, JUANCARLOS, LD, ANEU ####[address] [address] Basophils/100 WBC (Bld) 1.2 % Normal 0.0-2.5 [facility] [place] Comment on above: Performed By: #### C MP, ADIFF, GFR, TSH, FT3, FT4, CBC, JUANCARLOS, LD, ANEU ####[address] [address] Eosinophil, Absolute 0.8 10 3/mcL High 0.0-0.7 [facility] ([place] Comment on above: Performed By: #### C MP, ADIFF, GFR, TSH, FT3, FT4, CBC, JUANCARLOS, LD, ANEU ####[address] [address] Eosinophils/100 WBC (Bld) 12.2 % High 0.0-6.0 [facility] [place] Comment on above: Performed By: #### C MP, ADIFF, GFR, TSH, FT3, FT4, CBC, JUANCARLOS, LD, ANEU ####[address] [address] Lymphocyte, Absolute 1.3 10 3/mcL Normal 0.9-4.3 [facility] ([place] Comment on above: Performed By: #### C MP, ADIFF, GFR, TSH, FT3, FT4, CBC, JUANCARLOS, LD, ANEU ####[address] [address] Lymphocytes/100 WBC (Bld) 19.0 % Low 20.0-40.0 [facility] [place] Comment on above: Performed By: #### C MP, ADIFF, GFR, TSH, FT3, FT4, CBC, JUANCARLOS, LD, ANEU ####[address] [address] Monocyte, Absolute 0.6 10 3/mcL Normal 0.1-1.4 [facility] ([place] Comment on above: Performed By: #### C MP, ADIFF, GFR, TSH, FT3, FT4, CBC, JUANCARLOS, LD, ANEU ####[address] [address] Monocytes/100 WBC (Bld) 8.6 % Normal 2.0-13.0 [facility] [place] Comment on above: Performed By: #### C MP, ADIFF, GFR, TSH, FT3, FT4, CBC, JUANCARLOS, LD, ANEU ####[address] [address] Neutrophils/100 WBC (Bld) 59.0 % Normal 50.0-75.0 [facility] [place] Comment on above: Performed By: #### C MP, ADIFF, GFR, TSH, FT3, FT4, CBC, JUANCARLOS, LD, ANEU ####[address] [address] .GFRon 10-19-2023 GFR Non- 55 ml/min/1.73sqm Normal [facility] [place] Comment on above: Result Comment: GFR Population [...] TSH, FT3, FT4, CBC, JUANCARLOS, LD, ANEU ####[address] [address] GFR >60 Normal [facility] ([place]) Comment on above: Result Comment: GFR Population [...] TSH, FT3, FT4, CBC, JUANCARLOS, LD, ANEU ####[place] [address] .NEUABSon 10-19-2023 Neutrophil, Absolute 4.0 10 3/mcL Normal 2.3-8.1 [facility] ([place] Comment on above: Performed By: #### C MP, ADIFF, GFR, TSH, FT3, FT4, CBC, JUANCARLOS, LD, ANEU ####[place] [address] CBCon 10-19-2023 Erythrocyte distribution width (RBC) [Ratio] 16.7 % High 11.5-15.5 [facility] [place] Comment on above: Performed By: #### C MP, ADIFF, GFR, TSH, FT3, FT4, CBC, JUANCARLOS, LD, ANEU ####[place] [address] Hematocrit (Bld) [Volume fraction] 44.6 % Normal 40.0-52.0 [facility] [place] Comment on above: Performed By: #### C MP, ADIFF, GFR, TSH, FT3, FT4, CBC, JUANCARLOS, LD, ANEU ####[place] [address] Hgb 14.7 G/dL Normal 13.0-17.5 [facility] [place] Comment on above: Performed By: #### C MP, ADIFF, GFR, TSH, FT3, FT4, CBC, JUANCARLOS, LD, ANEU ####[place] [address] MCH (RBC) [Entitic mass] 30.4 pg Normal 27.0-33.0 [facility] [place] Comment on above: Performed By: #### C MP, ADIFF, GFR, TSH, FT3, FT4, CBC, JUANCARLOS, LD, ANEU ####[place] [address] MCHC 32.9 G/dL Normal 32.0-36.0 [facility] [place] Comment on above: Performed By: #### C MP, ADIFF, GFR, TSH, FT3, FT4, CBC, JUANCARLOS, LD, ANEU ####[place] [address] MCV (RBC) [Entitic vol] 92.6 fL Normal 81.0-100.0 [facility] [place] Comment on above: Performed By: #### C MP, ADIFF, GFR, TSH, FT3, FT4, CBC, JUANCARLOS, LD, ANEU ####[place] [address] Platelet 176 10 3/mcL Normal 150-450 [facility] [place] Comment on above: Performed By: #### C MP, ADIFF, GFR, TSH, FT3, FT4, CBC, JUANCARLOS, LD, ANEU ####[place] [address] Platelet mean volume (Bld) [Entitic vol] 7.7 fL Normal 6.4-10.5 [facility] [place] Comment on above: Performed By: #### C MP, ADIFF, GFR, TSH, FT3, FT4, CBC, JUANCARLOS, LD, ANEU ####[place] [address] RBC 4.82 10 6/mcL Normal 4.50-6.00 [facility] [place] Comment on above: Performed By: #### C MP, ADIFF, GFR, TSH, FT3, FT4, CBC, JUANCARLOS, LD, ANEU ####[place] [address] WBC 6.7 10 3/mcL Normal 4.5-10.8 [facility] [place] Comment on above: Performed By: #### C MP, ADIFF, GFR, TSH, FT3, FT4, CBC, JUANCARLOS, LD, ANEU ####[address] [address] CMPon 10-19-2023 Albumin Level 3.4 G/dL Normal 3.2-4.8 [facility] [place] Comment on above: Performed By: #### C MP, ADIFF, GFR, TSH, FT3, FT4, CBC, JUANCARLOS, LD, ANEU ####[place] [address] Albumin/Globulin [Mass ratio] 0.9 {ratio} Normal 0.9-1.6 [facility] [place] Comment on above: Performed By: #### C MP, ADIFF, GFR, TSH, FT3, FT4, CBC, JUANCARLOS, LD, ANEU ####[place] [address] ALP [Catalytic activity/Vol] 112 U/L Normal 38-126 [facility] [place] Comment on above: Performed By: #### C MP, ADIFF, GFR, TSH, FT3, FT4, CBC, JUANCARLOS, LD, ANEU ####[place] [address] ALT [Catalytic activity/Vol] 18 U/L Normal 12-55 [facility] [place] Comment on above: Performed By: #### C MP, ADIFF, GFR, TSH, FT3, FT4, CBC, JUANCARLOS, LD, ANEU ####[place] [address] AST [Catalytic activity/Vol] 19 U/L Normal 8-34 [facility] [place] Comment on above: Performed By: #### C MP, ADIFF, GFR, TSH, FT3, FT4, CBC, JUANCARLOS, LD, ANEU ####[place] [address] Bili Total 0.80 mg/dL Normal 0.20-1.20 [facility] [place] Comment on above: Result Comment: Use of this assay is not recommended for patients undergoing treatment with eltrombopag due to the potential for falsely elevated results. Performed By: #### C MP, ADIFF, GFR, TSH, FT3, FT4, CBC, JUANCARLOS, LD, ANEU ####[place] [address] BUN/Creatinine Ratio 14.3 ratio Normal 10.0-22.0 [facility] ([place] Comment on above: Performed By: #### C MP, ADIFF, GFR, TSH, FT3, FT4, CBC, JUANCARLOS, LD, ANEU ####[place] [address] Calcium [Mass/Vol] 9.2 mg/dL Normal 8.7-10.4 [facility] ([place] Comment on above: Performed By: #### C MP, ADIFF, GFR, TSH, FT3, FT4, CBC, JUANCARLOS, LD, ANEU ####[place] [address] Chloride [Moles/Vol] 103 mmol/L Normal 98-110 [facility] ([place] Comment on above: Performed By: #### C MP, ADIFF, GFR, TSH, FT3, FT4, CBC, JUANCARLOS, LD, ANEU ####[place] [address] CO2 [Moles/Vol] 30 mmol/L Normal 22-32 [facility] [place] Comment on above: Performed By: #### C MP, ADIFF, GFR, TSH, FT3, FT4, CBC, JUANCARLOS, LD, ANEU ####[place] [address] Creatinine [Mass/Vol] 1.40 mg/dL Normal 0.60-1.40 [facility] ([place] Comment on above: Result Comment: Test ing performed on [employer] analyzer using enzymatic creatinine methodology. Performed By: #### C MP, ADIFF, GFR, TSH, FT3, FT4, CBC, JUANCARLOS, LD, ANEU ####[place] [address] Electrolyte Balance 6.0 mEq/L Normal 4.0-15.0 [facility] ([place] Comment on above: Performed By: #### C MP, ADIFF, GFR, TSH, FT3, FT4, CBC, JUANCARLOS, LD, ANEU ####[place] [address] Globulin 3.6 G/dL Normal 1.5-3.8 [facility] [place] Comment on above: Performed By: #### C MP, ADIFF, GFR, TSH, FT3, FT4, CBC, JUANCARLOS, LD, ANEU ####[address] [address] Glucose [Mass/Vol] 104 mg/dL Normal 70-110 [facility] ([place] Comment on above: Performed By: #### C MP, ADIFF, GFR, TSH, FT3, FT4, CBC, JUANCARLOS, LD, ANEU ####[address] [address] Potassium [Moles/Vol] 3.6 mmol/L Normal 3.5-5.0 [facility] ([place] Comment on above: Performed By: #### C MP, ADIFF, GFR, TSH, FT3, FT4, CBC, JUANCARLOS, LD, ANEU ####[place] [id number] Sodium [Moles/Vol] 139 mmol/L Normal 136-145 [facility] ([place] Comment on above: Performed By: #### C MP, ADIFF, GFR, TSH, FT3, FT4, CBC, JUANCARLOS, LD, ANEU ####[place] [address] Total Protein 7.0 G/dL Normal 5.7-8.2 [facility] [place] Comment on above: Result Comment: No te - New Reference Range in effect 19 Performed By: #### C MP, ADIFF, GFR, TSH, FT3, FT4, CBC, JUANCARLOS, LD, ANEU ####[address] [address] Urea nitrogen [Mass/Vol] 20.0 mg/dL Normal 8.0-22.0 [facility] [place] Comment on above: Performed By: #### C MP, ADIFF, GFR, TSH, FT3, FT4, CBC, JUANCARLOS, LD, ANEU ####[place] [address] CORTon 10-19-2023 Cortisol Level 13.2 mcg/dL Normal [facility] [place] Comment on above: Result Comment: Juancarlos isol AM Reference Range 6.5-26.0 mcg/dLCortisol PM Reference Range 3.5-15.0 mcg/dL Performed By: #### C MP, ADIFF, GFR, TSH, FT3, FT4, CBC, JUANCARLOS, LD, ANEU ####[place] [address] FT3on 10-19-2023 Free T3 [Mass/Vol] 3.73 pg/mL Normal 2.30-4.20 [facility] ([place] Comment on above: Performed By: #### C MP, ADIFF, GFR, TSH, FT3, FT4, CBC, JUANCARLOS, LD, ANEU ####[place] [address] FT4on 10-19-2023 Free T4 [Mass/Vol] 1.20 ng/dL Normal 0.89-1.76 [facility] ([place] Comment on above: Result Comment: No te - New Reference Range in effect 19 Performed By: #### C MP, ADIFF, GFR, TSH, FT3, FT4, CBC, JUANCARLOS, LD, ANEU ####[place] [address] LABORATORYOrdered By: SYSTEM SYSTEM on 10-19-2023 Albumin [...] above: Interpretive Data: T esting performed on [employer] analyzer using enzymatic creatinine methodology. Electrolyte Balance [...] pg/mL Normal 2.30 - 4. 20 pg/mL [facility] Free T4 [Mass/Vol] 1.20 ng/dL Normal [...] LDHon 10-19-2023 LDH 187 U/L Normal 120-246 [facility] [place] Comment on above: Performed By: #### C MP, ADIFF, GFR, TSH, FT3, FT4, CBC, JUANCARLOS, LD, ANEU ####[address] [address] TSHon 10-19-2023 TSH 4.392 mIU/mL Normal 0.550-4.780 [facility] [place] Comment on above: Result Comment: No te - New Reference Range in effect 19 Performed By: #### C MP, ADIFF, GFR, TSH, FT3, FT4, CBC, JUANCARLOS, LD, ANEU ####[place] [address] CT ABDOMEN/PELVIS W/CONTRAST on 10-12-2023 CT ABDOMEN/PELVIS W/CONTRAST Normal [facility] [place] THORAX W/ CONTRASTon 09-14 CT THORAX W/ CONTRAST Normal [facility] ([place]) .Auto Diffon 09-25-2023 Basophil, Absolute 0.1 10 3/mcL Normal 0.0-0.3 [facility] ([place]) Comment on above: Performed By: #### P RO, MG, BMP, ADIFF, CBC, GFR, ANEU ####[address] [address] Basophils/100 WBC (Bld) 0.6 % Normal 0.0-2.5 [facility] [place] Comment on above: Performed By: #### P RO, MG, BMP, ADIFF, CBC, GFR, ANEU ####[address] [address] Eosinophil, Absolute 0.3 10 3/mcL Normal 0.0-0.7 [facility] ([place]) Comment on above: Performed By: #### P RO, MG, BMP, ADIFF, CBC, GFR, ANEU ####[address] [address] Eosinophils/100 WBC (Bld) 2.8 % Normal 0.0-6.0 [facility] [place] Comment on above: Performed By: #### P RO, MG, BMP, ADIFF, CBC, GFR, ANEU ####[address] [address] Lymphocyte, Absolute 1.2 10 3/mcL Normal 0.9-4.3 [facility] ([place] Comment on above: Performed By: #### P RO, MG, BMP, ADIFF, CBC, GFR, ANEU ####[address] [address] Lymphocytes/100 WBC (Bld) 10.0 % Low 20.0-40.0 [facility] [place] Comment on above: Performed By: #### P RO, MG, BMP, ADIFF, CBC, GFR, ANEU ####[address] [address] Monocyte, Absolute 1.0 10 3/mcL Normal 0.1-1.4 [facility] ([place] Comment on above: Performed By: #### P RO, MG, BMP, ADIFF, CBC, GFR, ANEU ####[address] [address] Monocytes/100 WBC (Bld) 8.1 % Normal 2.0-13.0 [facility] [place] Comment on above: Performed By: #### P RO, MG, BMP, ADIFF, CBC, GFR, ANEU ####[address] [address] Neutrophils/100 WBC (Bld) 78.5 % High 50.0-75.0 [facility] [place] Comment on above: Performed By: #### P RO, MG, BMP, ADIFF, CBC, GFR, ANEU ####[address] [address] .GFRon 09-25-2023 GFR >60 Normal [facility] ([place]) Comment on above: Result Comment: GFR Population [...] RO, MG, BMP, ADIFF, CBC, GFR, ANEU ####[address] [address] GFR Non- 50 ml/min/1.73sqm Normal [facility] [place] Comment on above: Result Comment: GFR Population [...] RO, MG, BMP, ADIFF, CBC, GFR, ANEU ####[address] [address] .NEUABSon 09-25-2023 Neutrophil, Absolute 9.4 10 3/mcL High 2.3-8.1 [facility] ([place] Comment on above: Performed By: #### P RO, MG, BMP, ADIFF, CBC, GFR, ANEU ####[address] [address] BMPon 09-25-2023 BUN/Creatinine Ratio 23.8 ratio High 10.0-22.0 [facility] ([place]) Comment on above: Performed By: #### P RO, MG, BMP, ADIFF, CBC, GFR, ANEU ####[address] [address] Calcium [Mass/Vol] 8.8 mg/dL Normal 8.7-10.4 [facility] ([place]) Comment on above: Performed By: #### P RO, MG, BMP, ADIFF, CBC, GFR, ANEU ####[place] [address] Chloride [Moles/Vol] 101 mmol/L Normal 98-110 [facility] ([place] Comment on above: Performed By: #### P RO, MG, BMP, ADIFF, CBC, GFR, ANEU ####[place] [address] CO2 [Moles/Vol] 38 mmol/L High 22-32 [facility] [place] Comment on above: Performed By: #### P RO, MG, BMP, ADIFF, CBC, GFR, ANEU ####[place] [address] Creatinine [Mass/Vol] 1.51 mg/dL High 0.60-1.40 [facility] ([place]) Comment on above: Performed By: #### P RO, MG, BMP, ADIFF, CBC, GFR, ANEU ####[place] [address] Electrolyte Balance 1.0 mEq/L Low 4.0-15.0 [facility] ([place] Comment on above: Performed By: #### P RO, MG, BMP, ADIFF, CBC, GFR, ANEU ####[place] [address] Glucose [Mass/Vol] 112 mg/dL High 70-110 [facility] ([place]) Comment on above: Performed By: #### P RO, MG, BMP, ADIFF, CBC, GFR, ANEU ####[place] [address] Potassium [Moles/Vol] 4.3 mmol/L Normal 3.5-5.0 [facility] ([place] Comment on above: Performed By: #### P RO, MG, BMP, ADIFF, CBC, GFR, ANEU ####[place] [address] Sodium [Moles/Vol] 140 mmol/L Normal 136-145 [facility] ([place] Comment on above: Performed By: #### P RO, MG, BMP, ADIFF, CBC, GFR, ANEU ####[place] [address] Urea nitrogen [Mass/Vol] 36.0 mg/dL High 8.0-22.0 [facility] [place] Comment on above: Performed By: #### P RO, MG, BMP, ADIFF, CBC, GFR, ANEU ####[place] [address] CBCon 09-25-2023 Erythrocyte distribution width (RBC) [Ratio] 16.4 % High 11.5-15.5 [facility] [place] Comment on above: Performed By: #### P RO, MG, BMP, ADIFF, CBC, GFR, ANEU ####[place] [address] Hematocrit (Bld) [Volume fraction] 44.8 % Normal 40.0-52.0 [facility] [place] Comment on above: Performed By: #### P RO, MG, BMP, ADIFF, CBC, GFR, ANEU ####[place] [address] Hgb 14.2 G/dL Normal 13.0-17.5 [facility] [place] Comment on above: Performed By: #### P RO, MG, BMP, ADIFF, CBC, GFR, ANEU ####[place] [address] MCH (RBC) [Entitic mass] 30.7 pg Normal 27.0-33.0 [facility] [place] Comment on above: Performed By: #### P RO, MG, BMP, ADIFF, CBC, GFR, ANEU ####[place] [address] MCHC 31.8 G/dL Low 32.0-36.0 [facility] [place] Comment on above: Performed By: #### P RO, MG, BMP, ADIFF, CBC, GFR, ANEU ####[place] [address] MCV (RBC) [Entitic vol] 96.5 fL Normal 81.0-100.0 [facility] [place] Comment on above: Performed By: #### P RO, MG, BMP, ADIFF, CBC, GFR, ANEU ####[place] [address] Platelet 206 10 3/mcL Normal 150-450 [facility] [place] Comment on above: Performed By: #### P RO, MG, BMP, ADIFF, CBC, GFR, ANEU ####[place] [address] Platelet mean volume (Bld) [Entitic vol] 8.3 fL Normal 6.4-10.5 [facility] [place] Comment on above: Performed By: #### P RO, MG, BMP, ADIFF, CBC, GFR, ANEU ####[place] [address] RBC 4.64 10 6/mcL Normal 4.50-6.00 [facility] [place] Comment on above: Performed By: #### P RO, MG, BMP, ADIFF, CBC, GFR, ANEU ####[place] [address] WBC 12.0 10 3/mcL High 4.5-10.8 [facility] [place] Comment on above: Performed By: #### P RO, MG, BMP, ADIFF, CBC, GFR, ANEU ####[place] [address] LABORATORYOrdered By: SYSTEM SYSTEM on 09-25-2023 Basophils [...] (S/P/Bld) [Vol rate/Area] ml/min/1.73sqm Invalid Interpretation Code 0xdata Chemistry S Comment on above: Interpretive Data: [...] [Vol rate/Area] 50 ml/min/1.73sqm Invalid Interpretation Code 0xdata Chemistry S Comment on above: Interpretive Data: [...] Comment on above: Interpretive Data: Cindy briggs [employer] (CHEST, 1991, [id number]) [...] 09-25-2023 Magnesium [Mass/Vol] 2.4 mg/dL Normal 1.6-2.4 [facility] ([place]) Comment on above: Performed By: #### P RO, MG, BMP, ADIFF, CBC, GFR, ANEU ####[place] [address] PROon 09-25-2023 INR Coag (PPP) [Relative time] 3.3 {INR} Normal [facility] ([place] Comment on above: Order Comment: order ed secondary to warfarin order Result Comment: [employer] (CHEST, 1991, [id number])recommended therapeutic range for oral anticoagulant therapy is:LOW RISK: Prophylaxis of venous thrombosis INR: 2.0-3.0 Treatment of pulmonary embolism 2.0-3.0 Prevention of systemic embolism 2.0-3.0HIGH RISK: Mechanical prosthetic valves 2.5-3.5 Performed By: #### P RO, MG, BMP, ADIFF, CBC, GFR, ANEU ####[address] [address] PT Coag (PPP) [Time] 38.3 s High 9.0-14.4 [facility] ([place]) Comment on above: Order Comment: order ed secondary to warfarin order Result Comment: Effe ctive 08/28/07, Protime results may be affected by some antibiotics (i.e. Ciprofloxacin, Azithromycin, Bactrim) which may potentiate the action of oral anticoagulants, with further increases in Protime/INR. Performed By: #### P RO, MG, BMP, ADIFF, CBC, GFR, ANEU ####[address] [address] XR CHEST 1 VIEWon 09-25-2023 XR CHEST 1 VIEW Normal [facility] ([place] .Auto Diffon 09-24-2023 Basophil, Absolute 0.0 10 3/mcL Normal 0.0-0.3 [facility] ([place]) Comment on above: Performed By: #### C BC, ANEU, ADIFF, BMP, PBNP, PRO, GFR, MG ####[address] [address] Basophils/100 WBC (Bld) 0.2 % Normal 0.0-2.5 [facility] ([place] Comment on above: Performed By: #### C BC, ANEU, ADIFF, BMP, PBNP, PRO, GFR, MG ####[address] [address] Eosinophil, Absolute 0.0 10 3/mcL Normal 0.0-0.7 [facility] ([place]) Comment on above: Performed By: #### C BC, ANEU, ADIFF, BMP, PBNP, PRO, GFR, MG ####[address] [address] Eosinophils/100 WBC (Bld) 0.1 % Normal 0.0-6.0 [facility] ([place] Comment on above: Performed By: #### C BC, ANEU, ADIFF, BMP, PBNP, PRO, GFR, MG ####[address] [address] Lymphocyte, Absolute 0.6 10 3/mcL Low 0.9-4.3 [facility] ([place]) Comment on above: Performed By: #### C BC, ANEU, ADIFF, BMP, PBNP, PRO, GFR, MG ####[address] [address] Lymphocytes/100 WBC (Bld) 6.1 % Low 20.0-40.0 [facility] ([place] Comment on above: Performed By: #### C BC, ANEU, ADIFF, BMP, PBNP, PRO, GFR, MG ####[address] [address] Monocyte, Absolute 0.2 10 3/mcL Normal 0.1-1.4 [facility] ([place]) Comment on above: Performed By: #### C BC, ANEU, ADIFF, BMP, PBNP, PRO, GFR, MG ####[address] [address] Monocytes/100 WBC (Bld) 2.4 % Normal 2.0-13.0 [facility] ([place] Comment on above: Performed By: #### C BC, ANEU, ADIFF, BMP, PBNP, PRO, GFR, MG ####[address] [address] Neutrophils/100 WBC (Bld) 91.2 % High 50.0-75.0 [facility] ([place] Comment on above: Performed By: #### C BC, ANEU, ADIFF, BMP, PBNP, PRO, GFR, MG ####[address] [address] .GFRon 09-24-2023 GFR >60 Normal [facility] ([place]) Comment on above: Result Comment: GFR Population [...] ANEU, ADIFF, BMP, PBNP, PRO, GFR, MG ####[address] [address] GFR Non- 52 ml/min/1.73sqm Normal [facility] ([place] Comment on above: Result Comment: GFR Population [...] ANEU, ADIFF, BMP, PBNP, PRO, GFR, MG ####[address] [address] .NEUABSon 09-24-2023 Neutrophil, Absolute 9.3 10 3/mcL High 2.3-8.1 [facility] ([place]) Comment on above: Performed By: #### C BC, ANEU, ADIFF, BMP, PBNP, PRO, GFR, MG ####[address] [address] BMPon 09-24-2023 BUN/Creatinine Ratio 21.2 ratio Normal 10.0-22.0 [facility] ([place]) Comment on above: Performed By: #### C BC, ANEU, ADIFF, BMP, PBNP, PRO, GFR, MG ####[address] [address] Calcium [Mass/Vol] 9.2 mg/dL Normal 8.7-10.4 [facility] ([place]) Comment on above: Performed By: #### C BC, ANEU, ADIFF, BMP, PBNP, PRO, GFR, MG ####[address] [address] Chloride [Moles/Vol] 100 mmol/L Normal 98-110 [facility] ([place]) Comment on above: Performed By: #### C BC, ANEU, ADIFF, BMP, PBNP, PRO, GFR, MG ####[address] [address] CO2 [Moles/Vol] 36 mmol/L High 22-32 [facility] ([place] Comment on above: Performed By: #### C BC, ANEU, ADIFF, BMP, PBNP, PRO, GFR, MG ####[address] [address] Creatinine [Mass/Vol] 1.46 mg/dL High 0.60-1.40 [facility] ([place]) Comment on above: Performed By: #### C BC, ANEU, ADIFF, BMP, PBNP, PRO, GFR, MG ####[address] [address] Electrolyte Balance 3.0 mEq/L Low 4.0-15.0 [facility] ([place]) Comment on above: Performed By: #### C BC, ANEU, ADIFF, BMP, PBNP, PRO, GFR, MG ####[address] [address] Glucose [Mass/Vol] 134 mg/dL High 70-110 [facility] ([place]) Comment on above: Performed By: #### C BC, ANEU, ADIFF, BMP, PBNP, PRO, GFR, MG ####[address] [address] Potassium [Moles/Vol] 4.1 mmol/L Normal 3.5-5.0 [facility] ([place]) Comment on above: Performed By: #### C BC, ANEU, ADIFF, BMP, PBNP, PRO, GFR, MG ####[address] [address] Sodium [Moles/Vol] 139 mmol/L Normal 136-145 [facility] ([place]) Comment on above: Performed By: #### C BC, ANEU, ADIFF, BMP, PBNP, PRO, GFR, MG ####[place] [address] Urea nitrogen [Mass/Vol] 31.0 mg/dL High 8.0-22.0 [facility] ([place] Comment on above: Performed By: #### C BC, ANEU, ADIFF, BMP, PBNP, PRO, GFR, MG ####[place] [address] CBCon 09-24-2023 Erythrocyte distribution width (RBC) [Ratio] 17.5 % High 11.5-15.5 [facility] [place] Comment on above: Performed By: #### C BC, ANEU, ADIFF, BMP, PBNP, PRO, GFR, MG ####[place] [address] Hematocrit (Bld) [Volume fraction] 43.5 % Normal 40.0-52.0 [facility] ([place] Comment on above: Performed By: #### C BC, ANEU, ADIFF, BMP, PBNP, PRO, GFR, MG ####[place] [address] Hgb 14.4 G/dL Normal 13.0-17.5 [facility] [place] Comment on above: Performed By: #### C BC, ANEU, ADIFF, BMP, PBNP, PRO, GFR, MG ####[place] [address] MCH (RBC) [Entitic mass] 32.2 pg Normal 27.0-33.0 [facility] ([place] Comment on above: Performed By: #### C BC, ANEU, ADIFF, BMP, PBNP, PRO, GFR, MG ####[place] [address] MCHC 33.1 G/dL Normal 32.0-36.0 [facility] ([place] Comment on above: Performed By: #### C BC, ANEU, ADIFF, BMP, PBNP, PRO, GFR, MG ####[place] [address] MCV (RBC) [Entitic vol] 97.3 fL Normal 81.0-100.0 [facility] ([place] Comment on above: Performed By: #### C BC, ANEU, ADIFF, BMP, PBNP, PRO, GFR, MG ####[place] [address] Platelet 189 10 3/mcL Normal 150-450 [facility] ([place] Comment on above: Performed By: #### C BC, ANEU, ADIFF, BMP, PBNP, PRO, GFR, MG ####[place] [address] Platelet mean volume (Bld) [Entitic vol] 8.3 fL Normal 6.4-10.5 [facility] ([place] Comment on above: Performed By: #### C BC, ANEU, ADIFF, BMP, PBNP, PRO, GFR, MG ####[place] [address] RBC 4.47 10 6/mcL Low 4.50-6.00 [facility] [place] Comment on above: Performed By: #### C BC, ANEU, ADIFF, BMP, PBNP, PRO, GFR, MG ####[place] [address] WBC 10.2 10 3/mcL Normal 4.5-10.8 [facility] ([place] Comment on above: Performed By: #### C BC, ANEU, ADIFF, BMP, PBNP, PRO, GFR, MG ####[place] [address] LABORATORYOrdered By: SYSTEM SYSTEM on 09-24-2023 Basophils [...] (S/P/Bld) [Vol rate/Area] ml/min/1.73sqm Invalid Interpretation Code 0xdata Chemistry S Comment on above: Interpretive Data: [...] [Vol rate/Area] 52 ml/min/1.73sqm Invalid Interpretation Code 0xdata Chemistry S Comment on above: Interpretive Data: [...] Comment on above: Interpretive Data: T he [employer] (CHEST, 1991, 102:312S-25S) [...] 09-24-2023 Magnesium [Mass/Vol] 2.3 mg/dL Normal 1.6-2.4 [facility] ([place]) Comment on above: Performed By: #### C BC, ANEU, ADIFF, BMP, PBNP, PRO, GFR, MG ####[place] [id number] [place] [address] PBNPon 09-24-2023 Natriuretic peptide B (Bld) [Mass/Vol] 1240 pg/mL High 0-450 [facility] ([place] Comment on above: Performed By: #### C BC, ANEU, ADIFF, BMP, PBNP, PRO, GFR, MG ####[place] [id number] [place] [address] PROon 09-24-2023 INR Coag (PPP) [Relative time] 2.6 {INR} Normal [facility] ([place] Comment on above: Order Comment: order ed secondary to warfarin order Result Comment: [employer] (CHEST, 1992, 102:312S-25S)recommended therapeutic range for oral anticoagulant therapy is:LOW RISK: Prophylaxis of venous thrombosis INR: 2.0-3.0 Treatment of pulmonary embolism 2.0-3.0 Prevention of systemic embolism 2.0-3.0HIGH RISK: Mechanical prosthetic valves 2.5-3.5 Performed By: #### C BC, ANEU, ADIFF, BMP, PBNP, PRO, GFR, MG ####[address] [address] PT Coag (PPP) [Time] 30.2 s High 9.0-14.4 [facility] ([place]) Comment on above: Order Comment: order ed secondary to warfarin order Result Comment: Effe ctive 08/28/07, Protime results may be affected by some antibiotics (i.e. Ciprofloxacin, Azithromycin, Bactrim) which may potentiate the action of oral anticoagulants, with further increases in Protime/INR. Performed By: #### C BC, ANEU, ADIFF, BMP, PBNP, PRO, GFR, MG ####[place] [address] .Auto Diffon 09-23-2023 Basophil, Absolute 0.0 10 3/mcL Normal 0.0-0.3 [facility]) Comment on above: Performed By: #### A RHONDA, CBC, GFR, MG, ADIFF, BMP, PRO ####[address] [address] Basophils/100 WBC (Bld) 0.6 % Normal 0.0-2.5 [facility] [place] Comment on above: Performed By: #### A RHONDA, CBC, GFR, MG, ADIFF, BMP, PRO ####[place] [address] Eosinophil, Absolute 0.8 10 3/mcL High 0.0-0.7 [facility] ([place]) Comment on above: Performed By: #### A RHONDA, CBC, GFR, MG, ADIFF, BMP, PRO ####[address] [address] Eosinophils/100 WBC (Bld) 11.3 % High 0.0-6.0 [facility] [place] Comment on above: Performed By: #### A RHONDA, CBC, GFR, MG, ADIFF, BMP, PRO ####[address] [address] Lymphocyte, Absolute 0.8 10 3/mcL Low 0.9-4.3 [facility] ([place]) Comment on above: Performed By: #### A RHONDA, CBC, GFR, MG, ADIFF, BMP, PRO ####[address] [address] Lymphocytes/100 WBC (Bld) 11.2 % Low 20.0-40.0 [facility] ([place] Comment on above: Performed By: #### A RHONDA, CBC, GFR, MG, ADIFF, BMP, PRO ####[address] [address] Monocyte, Absolute 0.9 10 3/mcL Normal 0.1-1.4 [facility] ([place]) Comment on above: Performed By: #### A RHONDA, CBC, GFR, MG, ADIFF, BMP, PRO ####[address] [address] Monocytes/100 WBC (Bld) 12.6 % Normal 2.0-13.0 [facility] ([place] Comment on above: Performed By: #### A RHONDA, CBC, GFR, MG, ADIFF, BMP, PRO ####[address] [address] Neutrophils/100 WBC (Bld) 64.3 % Normal 50.0-75.0 [facility] ([place] Comment on above: Performed By: #### A RHONDA, CBC, GFR, MG, ADIFF, BMP, PRO ####[address] [address] .GFRon 09-23-2023 GFR Non- 52 ml/min/1.73sqm Normal [facility] ([place] Comment on above: Result Comment: GFR Population [...] RHONDA, CBC, GFR, MG, ADIFF, BMP, PRO ####[address] [address] GFR >60 Normal [facility] ([place]) Comment on above: Result Comment: GFR Population [...] RHONDA, CBC, GFR, MG, ADIFF, BMP, PRO ####[address] [address] .NEUABSon 09-23-2023 Neutrophil, Absolute 4.5 10 3/mcL Normal 2.3-8.1 [facility] ([place]) Comment on above: Performed By: #### A RHONDA, CBC, GFR, MG, ADIFF, BMP, PRO ####[address] [address] BMPon 09-23-2023 BUN/Creatinine Ratio 18.2 ratio Normal 10.0-22.0 [facility] ([place]) Comment on above: Performed By: #### A RHONDA, CBC, GFR, MG, ADIFF, BMP, PRO ####[address] [address] Calcium [Mass/Vol] 8.9 mg/dL Normal 8.7-10.4 [facility] ([place]) Comment on above: Performed By: #### A RHONDA, CBC, GFR, MG, ADIFF, BMP, PRO ####[address] [address] Chloride [Moles/Vol] 96 mmol/L Low 98-110 [facility] ([place]) Comment on above: Performed By: #### A RHONDA, CBC, GFR, MG, ADIFF, BMP, PRO ####[address] [address] CO2 [Moles/Vol] 40 mmol/L Critically abnormal 22-32 [facility] ([place] Comment on above: Performed By: #### A RHONDA, CBC, GFR, MG, ADIFF, BMP, PRO ####[address] [address] Creatinine [Mass/Vol] 1.48 mg/dL High 0.60-1.40 [facility] ([place]) Comment on above: Performed By: #### A RHONDA, CBC, GFR, MG, ADIFF, BMP, PRO ####[address] [address] Electrolyte Balance 2.0 mEq/L Low 4.0-15.0 [facility] ([place]) Comment on above: Performed By: #### A RHONDA, CBC, GFR, MG, ADIFF, BMP, PRO ####[address] [address] Glucose [Mass/Vol] 107 mg/dL Normal 70-110 [facility] ([place]) Comment on above: Performed By: #### A RHONDA, CBC, GFR, MG, ADIFF, BMP, PRO ####[address] [address] Potassium [Moles/Vol] 3.9 mmol/L Normal 3.5-5.0 [facility] ([place]) Comment on above: Performed By: #### A RHONDA, CBC, GFR, MG, ADIFF, BMP, PRO ####[place] [address] Sodium [Moles/Vol] 138 mmol/L Normal 136-145 [facility] ([place]) Comment on above: Performed By: #### A RHONDA, CBC, GFR, MG, ADIFF, BMP, PRO ####[place] [address] Urea nitrogen [Mass/Vol] 27.0 mg/dL High 8.0-22.0 [facility] ([place] Comment on above: Performed By: #### A RHONDA, CBC, GFR, MG, ADIFF, BMP, PRO ####[place] [address] CBCon 09-23-2023 Erythrocyte distribution width (RBC) [Ratio] 16.9 % High 11.5-15.5 [facility] [place] Comment on above: Performed By: #### A RHONDA, CBC, GFR, MG, ADIFF, BMP, PRO ####[place] [address] Hematocrit (Bld) [Volume fraction] 42.9 % Normal 40.0-52.0 [facility] [place] Comment on above: Performed By: #### A RHONDA, CBC, GFR, MG, ADIFF, BMP, PRO ####[place] [address] Hgb 14.1 G/dL Normal 13.0-17.5 [facility] [place] Comment on above: Performed By: #### A RHONDA, CBC, GFR, MG, ADIFF, BMP, PRO ####[place] [address] MCH (RBC) [Entitic mass] 31.6 pg Normal 27.0-33.0 [facility] [place] Comment on above: Performed By: #### A RHONDA, CBC, GFR, MG, ADIFF, BMP, PRO ####[place] [address] MCHC 33.0 G/dL Normal 32.0-36.0 [facility] [place] Comment on above: Performed By: #### A RHONDA, CBC, GFR, MG, ADIFF, BMP, PRO ####[place] [address] MCV (RBC) [Entitic vol] 95.9 fL Normal 81.0-100.0 [facility] ([place] Comment on above: Performed By: #### A RHONDA, CBC, GFR, MG, ADIFF, BMP, PRO ####[place] [address] Platelet 175 10 3/mcL Normal 150-450 [facility] [place] Comment on above: Performed By: #### A RHONDA, CBC, GFR, MG, ADIFF, BMP, PRO ####[place] [address] Platelet mean volume (Bld) [Entitic vol] 7.7 fL Normal 6.4-10.5 [facility] ([place] Comment on above: Performed By: #### A RHONDA, CBC, GFR, MG, ADIFF, BMP, PRO ####[place] [address] RBC 4.47 10 6/mcL Low 4.50-6.00 [facility] [place] Comment on above: Performed By: #### A RHONDA, CBC, GFR, MG, ADIFF, BMP, PRO ####[place] [address] WBC 7.0 10 3/mcL Normal 4.5-10.8 [facility] [place] Comment on above: Performed By: #### A RHONDA, CBC, GFR, MG, ADIFF, BMP, PRO ####[place] [address] LABORATORYOrdered By: SYSTEM SYSTEM on 09-23-2023 Basophils [...] (S/P/Bld) [Vol rate/Area] ml/min/1.73sqm Invalid Interpretation Code 0xdata Chemistry S Comment on above: Interpretive Data: [...] [Vol rate/Area] 52 ml/min/1.73sqm Invalid Interpretation Code 0xdata Chemistry S Comment on above: Interpretive Data: [...] Comment on above: Interpretive Data: T [employer] (CHEST, 1991, 102:312S-25S) [...] 09-23-2023 Magnesium [Mass/Vol] 2.0 mg/dL Normal 1.6-2.4 [facility] ([place]) Comment on above: Performed By: #### A RHONDA, CBC, GFR, MG, ADIFF, BMP, PRO ####[place] [address] PROon 09-23-2023 INR Coag (PPP) [Relative time] 2.3 {INR} Normal [facility] [place] Comment on above: Order Comment: order ed secondary to warfarin order Result Comment: [employer] (CHEST, 1991, 102:312S-25S)recommended therapeutic range for oral anticoagulant therapy is:LOW RISK: Prophylaxis of venous thrombosis INR: 2.0-3.0 Treatment of pulmonary embolism 2.0-3.0 Prevention of systemic embolism 2.0-3.0HIGH RISK: Mechanical prosthetic valves 2.5-3.5 Performed By: #### A RHONDA, CBC, GFR, MG, ADIFF, BMP, PRO ####[address] [address] PT Coag (PPP) [Time] 26.9 s High 9.0-14.4 [facility] ([place]) Comment on above: Order Comment: order ed secondary to warfarin order Result Comment: Effe ctive 08/28/07, Protime results may be affected by some antibiotics (i.e. Ciprofloxacin, Azithromycin, Bactrim) which may potentiate the action of oral anticoagulants, with further increases in Protime/INR. Performed By: #### A RHONDA, CBC, GFR, MG, ADIFF, BMP, PRO ####[address] [address] .Auto Diffon 09-22-2023 Basophil, Absolute 0.0 10 3/mcL Normal 0.0-0.3 [facility] ([place]) Comment on above: Performed By: #### C BC, MG, PRO, ANEU, GFR, ADIFF, BMP ####[place] [address] Basophils/100 WBC (Bld) 0.8 % Normal 0.0-2.5 [facility] [place] Comment on above: Performed By: #### C BC, MG, PRO, ANEU, GFR, ADIFF, BMP ####[address] [address] Eosinophil, Absolute 0.6 10 3/mcL Normal 0.0-0.7 [facility] ([place]) Comment on above: Performed By: #### C BC, MG, PRO, ANEU, GFR, ADIFF, BMP ####[place] [address] Eosinophils/100 WBC (Bld) 9.8 % High 0.0-6.0 [facility] [place] Comment on above: Performed By: #### C BC, MG, PRO, ANEU, GFR, ADIFF, BMP ####[place] [address] Lymphocyte, Absolute 0.7 10 3/mcL Low 0.9-4.3 [facility] ([place] Comment on above: Performed By: #### C BC, MG, PRO, ANEU, GFR, ADIFF, BMP ####[address] [address] Lymphocytes/100 WBC (Bld) 11.7 % Low 20.0-40.0 [facility] [place] Comment on above: Performed By: #### C BC, MG, PRO, ANEU, GFR, ADIFF, BMP ####[address] [address] Monocyte, Absolute 0.7 10 3/mcL Normal 0.1-1.4 [facility] ([place]) Comment on above: Performed By: #### C BC, MG, PRO, ANEU, GFR, ADIFF, BMP ####[address] [address] Monocytes/100 WBC (Bld) 12.0 % Normal 2.0-13.0 [facility] [place] Comment on above: Performed By: #### C BC, MG, PRO, ANEU, GFR, ADIFF, BMP ####[address] [address] Neutrophils/100 WBC (Bld) 65.7 % Normal 50.0-75.0 [facility] [place] Comment on above: Performed By: #### C BC, MG, PRO, ANEU, GFR, ADIFF, BMP ####[address] [address] .GFRon 09-22-2023 GFR >60 Normal [facility] ([place]) Comment on above: Result Comment: GFR Population [...] BC, MG, PRO, ANEU, GFR, ADIFF, BMP ####[place] [address] GFR Non- 51 ml/min/1.73sqm Normal [facility] [place] Comment on above: Result Comment: GFR Population [...] BC, MG, PRO, ANEU, GFR, ADIFF, BMP ####[place] [address] .NEUABSon 09-22-2023 Neutrophil, Absolute 4.1 10 3/mcL Normal 2.3-8.1 [facility] ([place] Comment on above: Performed By: #### C BC, MG, PRO, ANEU, GFR, ADIFF, BMP ####[place] [address] BMPon 09-22-2023 CO2 [Moles/Vol] mmol/L Critically abnormal 22-32 [facility] [place] Comment on above: Performed By: #### C BC, MG, PRO, ANEU, GFR, ADIFF, BMP ####[place] [address] Electrolyte Balance Unable to Calculate Normal 4.0-15. 0 [facility] [place] Comment on above: Result Comment: Unab le to calculate this test result accurately. Results used to calculate this test are outside the reportable range. Performed By: #### C BC, MG, PRO, ANEU, GFR, ADIFF, BMP ####[address] [address] BUN/Creatinine Ratio 15.4 ratio Normal 10.0-22.0 [facility] ([place]) Comment on above: Performed By: #### C BC, MG, PRO, ANEU, GFR, ADIFF, BMP ####[address] [address] Calcium [Mass/Vol] 9.6 mg/dL Normal 8.7-10.4 [facility] ([place]) Comment on above: Performed By: #### C BC, MG, PRO, ANEU, GFR, ADIFF, BMP ####[address] [address] Chloride [Moles/Vol] 94 mmol/L Low 98-110 [facility] ([place]) Comment on above: Performed By: #### C BC, MG, PRO, ANEU, GFR, ADIFF, BMP ####[place] [address] Creatinine [Mass/Vol] 1.49 mg/dL High 0.60-1.40 [facility] ([place]) Comment on above: Performed By: #### C BC, MG, PRO, ANEU, GFR, ADIFF, BMP ####[address] [address] Glucose [Mass/Vol] 100 mg/dL Normal 70-110 [facility] ([place]) Comment on above: Performed By: #### C BC, MG, PRO, ANEU, GFR, ADIFF, BMP ####[address] [address] Potassium [Moles/Vol] 3.8 mmol/L Normal 3.5-5.0 [facility] ([place]) Comment on above: Performed By: #### C BC, MG, PRO, ANEU, GFR, ADIFF, BMP ####[address] [address] Sodium [Moles/Vol] 139 mmol/L Normal 136-145 [facility] ([place]) Comment on above: Performed By: #### C BC, MG, PRO, ANEU, GFR, ADIFF, BMP ####[place] [address] Urea nitrogen [Mass/Vol] 23.0 mg/dL High 8.0-22.0 [facility] [place] Comment on above: Performed By: #### C BC, MG, PRO, ANEU, GFR, ADIFF, BMP ####[place] [address] CBCon 09-22-2023 Erythrocyte distribution width (RBC) [Ratio] 16.2 % High 11.5-15.5 [facility] [place] Comment on above: Performed By: #### C BC, MG, PRO, ANEU, GFR, ADIFF, BMP ####[place] [address] Hematocrit (Bld) [Volume fraction] 43.5 % Normal 40.0-52.0 [facility] [place] Comment on above: Performed By: #### C BC, MG, PRO, ANEU, GFR, ADIFF, BMP ####[place] [address] Hgb 14.2 G/dL Normal 13.0-17.5 [facility] [place] Comment on above: Performed By: #### C BC, MG, PRO, ANEU, GFR, ADIFF, BMP ####[place] [address] MCH (RBC) [Entitic mass] 30.8 pg Normal 27.0-33.0 [facility] [place] Comment on above: Performed By: #### C BC, MG, PRO, ANEU, GFR, ADIFF, BMP ####[place] [address] MCHC 32.5 G/dL Normal 32.0-36.0 [facility] [place] Comment on above: Performed By: #### C BC, MG, PRO, ANEU, GFR, ADIFF, BMP ####[place] [address] MCV (RBC) [Entitic vol] 94.9 fL Normal 81.0-100.0 [facility] [place] Comment on above: Performed By: #### C BC, MG, PRO, ANEU, GFR, ADIFF, BMP ####[place] [address] Platelet 180 10 3/mcL Normal 150-450 [facility] [place] Comment on above: Performed By: #### C BC, MG, PRO, ANEU, GFR, ADIFF, BMP ####[place] [address] Platelet mean volume (Bld) [Entitic vol] 7.7 fL Normal 6.4-10.5 [facility] [place] Comment on above: Performed By: #### C BC, MG, PRO, ANEU, GFR, ADIFF, BMP ####[place] [address] RBC 4.59 10 6/mcL Normal 4.50-6.00 [facility] [place] Comment on above: Performed By: #### C BC, MG, PRO, ANEU, GFR, ADIFF, BMP ####[place] [address] WBC 6.2 10 3/mcL Normal 4.5-10.8 [facility] [place] Comment on above: Performed By: #### C BC, MG, PRO, ANEU, GFR, ADIFF, BMP ####[place] [address] MGon 09-22-2023 Magnesium [Mass/Vol] 1.7 mg/dL Normal 1.6-2.4 [facility] ([place]) Comment on above: Performed By: #### C BC, MG, PRO, ANEU, GFR, ADIFF, BMP ####[place] [address] PROon 09-22-2023 INR Coag (PPP) [Relative time] 2.1 {INR} Normal [facility] [place] Comment on above: Order Comment: order ed secondary to warfarin order Result Comment: [employer] (CHEST, 1992, 102:312S-25S)recommended therapeutic range for oral anticoagulant therapy is:LOW RISK: Prophylaxis of venous thrombosis INR: 2.0-3.0 Treatment of pulmonary embolism 2.0-3.0 Prevention of systemic embolism 2.0-3.0HIGH RISK: Mechanical prosthetic valves 2.5-3.5 Performed By: #### C BC, MG, PRO, ANEU, GFR, ADIFF, BMP ####[address] [address] PT Coag (PPP) [Time] 24.1 s High 9.0-14.4 [facility] ([place]) Comment on above: Order Comment: order ed secondary to warfarin order Result Comment: Effe ctive 08/28/07, Protime results may be affected by some antibiotics (i.e. Ciprofloxacin, Azithromycin, Bactrim) which may potentiate the action of oral anticoagulants, with further increases in Protime/INR. Performed By: #### C BC, MG, PRO, ANEU, GFR, ADIFF, BMP ####[place] [address] .Auto Diffon 09-21-2023 Basophil, Absolute 0.1 10 3/mcL Normal 0.0-0.3 [facility] ([place]) Comment on above: Performed By: #### C BC, BMP, GFR, MG, PRO, ANEU, ADIFF ####[place] [address] Basophils/100 WBC (Bld) 0.9 % Normal 0.0-2.5 [facility] [place] Comment on above: Performed By: #### C BC, BMP, GFR, MG, PRO, ANEU, ADIFF ####[place] [address] Eosinophil, Absolute 0.5 10 3/mcL Normal 0.0-0.7 [facility] ([place]) Comment on above: Performed By: #### C BC, BMP, GFR, MG, PRO, ANEU, ADIFF ####[place] [address] Eosinophils/100 WBC (Bld) 8.4 % High 0.0-6.0 [facility] [place] Comment on above: Performed By: #### C BC, BMP, GFR, MG, PRO, ANEU, ADIFF ####[address] [address] Lymphocyte, Absolute 0.7 10 3/mcL Low 0.9-4.3 [facility] ([place] Comment on above: Performed By: #### C BC, BMP, GFR, MG, PRO, ANEU, ADIFF ####[address] [address] Lymphocytes/100 WBC (Bld) 11.5 % Low 20.0-40.0 [facility] [facility] [place] Comment on above: Performed By: #### C BC, BMP, GFR, MG, PRO, ANEU, ADIFF ####[address] [address] Monocyte, Absolute 0.8 10 3/mcL Normal 0.1-1.4 [facility] ([place]) Comment on above: Performed By: #### C BC, BMP, GFR, MG, PRO, ANEU, ADIFF ####[address] [address] Monocytes/100 WBC (Bld) 12.7 % Normal 2.0-13.0 [facility] [place] Comment [place] above: Performed By: #### C BC, BMP, GFR, MG, PRO, ANEU, ADIFF ####[address] [address] Neutrophils/100 WBC (Bld) 66.5 % Normal 50.0-75.0 [facility] [place] Comment on above: Performed By: #### C BC, BMP, GFR, MG, PRO, ANEU, ADIFF ####[address] [address] .GFRon 09-21-2023 GFR Non- 54 ml/min/1.73sqm Normal [facility] ([place] Comment on above: Result Comment: GFR Population [...] BC, BMP, GFR, MG, PRO, ANEU, ADIFF ####[address] [address] GFR >60 Normal [facility] ([place]) Comment on above: Result Comment: GFR Population [...] BC, BMP, GFR, MG, PRO, ANEU, ADIFF ####[address] [address] .NEUABSon 09-21-2023 Neutrophil, Absolute 4.1 10 3/mcL Normal 2.3-8.1 [facility] ([place]) Comment on above: Performed By: #### C BC, BMP, GFR, MG, PRO, ANEU, ADIFF ####[address] [address] BGon 09-21-2023 Base excess Calc (Bld) [Moles/Vol] 14.7 mmol/L Normal [facility] ([place] Comment on above: Performed By: #### B G ####[address] [address] CO2 [Moles/Vol] 41.2 mmol/L Critically abnormal 22.0-30.0 [facility] [place] Comment on above: Performed By: #### B G ####[address] [address] HCO3 (Bld) [Moles/Vol] 39.7 mmol/L High 21.0-29.0 A [facility] ([place]) Comment on above: Performed By: #### B G ####[address] [address] Oxygen (Bld) [Partial pressure] 101.6 mm[Hg] Normal 74.0-108.0 [facility] [place] Comment on above: Performed By: #### B G ####[place] [address] Oxygen saturation in Blood 98.1 % High 92.0-96.0 [facility] [place] Comment on above: Performed By: #### B G ####[place] [address] pCO2 49.1 mmHg High 32.0-46.0 [facility] [place] Comment on above: Performed By: #### B G ####[place] [address] pH (Bld) 7.526 [pH] High 7.380-7.460 [facility] [place] Comment on above: Performed By: #### B G ####[place] [address] BMPon 09-21-2023 CO2 [Moles/Vol] mmol/L Critically abnormal 22-32 [facility] [place] Comment on above: Performed By: #### C BC, BMP, GFR, MG, PRO, ANEU, ADIFF ####[place] [address] Electrolyte Balance Unable to Calculate Normal 4.0-15. 0 [facility] ([place] Comment on above: Result Comment: Unab le to calculate this test result accurately. Results used to calculate this test are outside the reportable range. Performed By: #### C BC, BMP, GFR, MG, PRO, ANEU, ADIFF ####[place] [address] BUN/Creatinine Ratio 14.0 ratio Normal 10.0-22.0 [facility] ([place]) Comment on above: Performed By: #### C BC, BMP, GFR, MG, PRO, ANEU, ADIFF ####[address] [address] Calcium [Mass/Vol] 9.7 mg/dL Normal 8.7-10.4 [facility] ([place]) Comment on above: Performed By: #### C BC, BMP, GFR, MG, PRO, ANEU, ADIFF ####[address] [address] Chloride [Moles/Vol] 94 mmol/L Low 98-110 [facility] ([place]) Comment on above: Performed By: #### C BC, BMP, GFR, MG, PRO, ANEU, ADIFF ####[address] [address] Creatinine [Mass/Vol] 1.43 mg/dL High 0.60-1.40 [facility] ([place]) Comment on above: Performed By: #### C BC, BMP, GFR, MG, PRO, ANEU, ADIFF ####[address] [address] Glucose [Mass/Vol] 101 mg/dL Normal 70-110 [facility] ([place]) Comment on above: Performed By: #### C BC, BMP, GFR, MG, PRO, ANEU, ADIFF ####[address] [address] Potassium [Moles/Vol] 4.1 mmol/L Normal 3.5-5.0 [facility] ([place]) Comment on above: Performed By: #### C BC, BMP, GFR, MG, PRO, ANEU, ADIFF ####[address] [address] Sodium [Moles/Vol] 141 mmol/L Normal 136-145 [facility] ([place]) Comment on above: Performed By: #### C BC, BMP, GFR, MG, PRO, ANEU, ADIFF ####[address] [address] Urea nitrogen [Mass/Vol] 20.0 mg/dL Normal 8.0-22.0 [facility] ([place]) Comment on above: Performed By: #### C BC, BMP, GFR, MG, PRO, ANEU, ADIFF ####[place] [address] CBCon 09-21-2023 Erythrocyte distribution width (RBC) [Ratio] 16.2 % High 11.5-15.5 [facility] [place] Comment on above: Performed By: #### C BC, BMP, GFR, MG, PRO, ANEU, ADIFF ####[place] [address] Hematocrit (Bld) [Volume fraction] 42.3 % Normal 40.0-52.0 [facility] [place] Comment on above: Performed By: #### C BC, BMP, GFR, MG, PRO, ANEU, ADIFF ####[place] [address] Hgb 13.8 G/dL Normal 13.0-17.5 [facility] ([place] Comment on above: Performed By: #### C BC, BMP, GFR, MG, PRO, ANEU, ADIFF ####[place] [address] MCH (RBC) [Entitic mass] 30.6 pg Normal 27.0-33.0 [facility] [place] Comment on above: Performed By: #### C BC, BMP, GFR, MG, PRO, ANEU, ADIFF ####[place] [address] MCHC 32.6 G/dL Normal 32.0-36.0 [facility] [place] Comment on above: Performed By: #### C BC, BMP, GFR, MG, PRO, ANEU, ADIFF ####[place] [address] MCV (RBC) [Entitic vol] 93.8 fL Normal 81.0-100.0 [facility] ([place] Comment on above: Performed By: #### C BC, BMP, GFR, MG, PRO, ANEU, ADIFF ####[place] [address] Platelet 199 10 3/mcL Normal 150-450 [facility] [place] Comment on above: Performed By: #### C BC, BMP, GFR, MG, PRO, ANEU, ADIFF ####[place] [address] Platelet mean volume (Bld) [Entitic vol] 7.6 fL Normal 6.4-10.5 [facility] ([place] Comment on above: Performed By: #### C BC, BMP, GFR, MG, PRO, ANEU, ADIFF ####[place] [address] RBC 4.51 10 6/mcL Normal 4.50-6.00 [facility] [place] Comment on above: Performed By: #### C BC, BMP, GFR, MG, PRO, ANEU, ADIFF ####[place] [address] WBC 6.1 10 3/mcL Normal 4.5-10.8 [facility] [place] Comment on above: Performed By: #### C BC, BMP, GFR, MG, PRO, ANEU, ADIFF ####[place] [address] CRURon 09-21-2023 U Creatinine 11.1 mg/dL Normal [facility] ([place]) Comment on above: Performed By: #### N AUR, CRUR ####[place] [address] LABORATORYOrdered By: SYSTEM SYSTEM on 09-21-2023 Uric [...] 107 mg/dL Normal 70 - 110 mg/dL [facility] MGon 09-21-2023 Magnesium [Mass/Vol] 1.7 mg/dL Normal 1.6-2.4 [facility]) Comment on above: Performed By: #### C BC, BMP, GFR, MG, PRO, ANEU, ADIFF ####[place] [address] NAURon 09-21-2023 Sodium [Moles/Vol] 134 mmol/L Normal [facility] ([place]) Comment on above: Performed By: #### N SINGH TAVERA ####[place] [address] PROon 09-21-2023 INR Coag (PPP) [Relative time] 2.2 {INR} Normal [facility]) Comment on above: Order Comment: order ed secondary to warfarin order Result Comment: [employer] (CHEST, 1992, 102:312S-25S)recommended therapeutic range for oral anticoagulant therapy is:LOW RISK: Prophylaxis of venous thrombosis INR: 2.0-3.0 Treatment of pulmonary embolism 2.0-3.0 Prevention of systemic embolism 2.0-3.0HIGH RISK: Mechanical prosthetic valves 2.5-3.5 Performed By: #### P RO ####[place] [address] Performed By: #### C BC, BMP, GFR, MG, PRO, ANEU, ADIFF ####[place] [address] PT Coag (PPP) [Time] 25.3 s High 9.0-14.4 [facility] ([place]) Comment on above: Order Comment: order ed secondary to warfarin order Result Comment: Effe ctive 08/28/07, Protime results may be affected by some antibiotics (i.e. Ciprofloxacin, Azithromycin, Bactrim) which may potentiate the action of oral anticoagulants, with further increases in Protime/INR. Performed By: #### P RO ####[place] [address] PT Coag (PPP) [Time] 25.1 s High 9.0-14.4 [facility] ([place]) Comment on above: Result Comment: Effe ctive 08/28/07, Protime results may be affected by some antibiotics (i.e. Ciprofloxacin, Azithromycin, Bactrim) which may potentiate the action of oral anticoagulants, with further increases in Protime/INR. Performed By: #### C BC, BMP, GFR, MG, PRO, ANEU, ADIFF ####[place] [address] URICon 09-21-2023 Uric Acid Lvl 9.5 mg/dL High 3.7-9.2 [facility] ([place]) Comment on above: Result Comment: No te - New Reference Range in effect 19 Performed By: #### U ERENDIRA ####[place] [address] .Auto Diffon 09-20-2023 Basophil, Absolute 0.0 10 3/mcL Normal 0.0-0.3 [facility] ([place]) Comment on above: Performed By: #### C BC, ADIFF, ANEU ####[place] [address] Basophils/100 WBC (Bld) 0.6 % Normal 0.0-2.5 [facility] ([place]) Comment on above: Performed By: #### C BC, ADIFF, ANEU ####[address] [place], [place] [address] Eosinophil, Absolute 0.5 10 3/mcL Normal 0.0-0.7 [facility] ([place]) Comment on above: Performed By: #### ELLI MOODY, ANEU ####[address] [address] Eosinophils/100 WBC (Bld) 7.4 % High 0.0-6.0 [facility] ([place]) Comment on above: Performed By: #### ELLI MOODY, ANEU ####[address] [address] Lymphocyte, Absolute 0.7 10 3/mcL Low 0.9-4.3 [facility] ([place]) Comment on above: Performed By: #### ELLI MOODY, ANEU ####[address] [address] Lymphocytes/100 WBC (Bld) 11.2 % Low 20.0-40.0 [facility] ([place]) Comment on above: Performed By: #### ELLI MOODY, ANEU ####[address] [address] Monocyte, Absolute 0.7 10 3/mcL Normal 0.1-1.4 [facility] ([place]) Comment on above: Performed By: #### ELLI MOODY, ANEU ####[address] [address] Monocytes/100 WBC (Bld) 11.3 % Normal 2.0-13.0 [facility] ([place] Comment on above: Performed By: #### C ELLI KAMINSKI, ANEU ####[address] [address] Neutrophils/100 WBC (Bld) 69.5 % Normal 50.0-75.0 [facility] ([place] Comment on above: Performed By: #### ELLI MOODY, ANEU ####[address] [address] Basophil, Absolute 0.1 10 3/mcL Normal 0.0-0.3 [facility] ([place]) Comment on above: Performed By: #### M GKATIE, GFR, CBC, BMP, ADIFF ####[address] [address] Basophils/100 WBC (Bld) 1.0 % Normal 0.0-2.5 [facility] [place] Comment [place] above: Performed By: #### M G, ANEU, GFR, CBC, BMP, ADIFF ####[address] [address] Eosinophil, Absolute 0.4 10 3/mcL Normal 0.0-0.7 [facility] ([place]) Comment on above: Performed By: #### M G, ANEU, GFR, CBC, BMP, ADIFF ####[address] [address] Eosinophils/100 WBC (Bld) 7.8 % High 0.0-6.0 [facility] [place] Comment on above: Performed By: #### M G, ANEU, GFR, CBC, BMP, ADIFF ####[address] [address] Lymphocyte, Absolute 0.7 10 3/mcL Low 0.9-4.3 [facility] ([place]) Comment on above: Performed By: #### M G, ANEU, GFR, CBC, BMP, ADIFF ####[address] [address] Lymphocytes/100 WBC (Bld) 12.6 % Low 20.0-40.0 [facility] [place] Comment on above: Performed By: #### M G, ANEU, GFR, CBC, BMP, ADIFF ####[address] [address] Monocyte, Absolute 0.7 10 3/mcL Normal 0.1-1.4 [facility] ([place]) Comment on above: Performed By: #### M G, ANEU, GFR, CBC, BMP, ADIFF ####[address] [address] Monocytes/100 WBC (Bld) 12.0 % Normal 2.0-13.0 [facility] ([place] Comment on above: Performed By: #### M G, ANEU, GFR, CBC, BMP, ADIFF ####[address] [address] Neutrophils/100 WBC (Bld) 66.6 % Normal 50.0-75.0 [facility] [place] Comment on above: Performed By: #### M G, ANEU, GFR, CBC, BMP, ADIFF ####[address] [address] .GFRon 09-20-2023 GFR Non- >60 Normal [facility] [place] Comment on above: Result Comment: GFR Population [...] M G, ANEU, GFR, CBC, BMP, ADIFF ####[address] [address] GFR >60 Normal [facility] ([place]) Comment on above: Result Comment: GFR Population [...] M G, ANEU, GFR, CBC, BMP, ADIFF ####[address] [address] .NEUABSon 09-20-2023 Neutrophil, Absolute 4.6 10 3/mcL Normal 2.3-8.1 [facility] ([place]) Comment on above: Performed By: #### C BC, ADIFF, ANEU ####[place] [address] Neutrophil, Absolute 3.8 10 3/mcL Normal 2.3-8.1 [facility] ([place]) Comment on above: Performed By: #### M G, ANEU, GFR, CBC, BMP, ADIFF ####[place] [address] BMPon 09-20-2023 CO2 [Moles/Vol] mmol/L Critically abnormal 22-32 [facility] [place] Comment on above: Performed By: #### M G, ANEU, GFR, CBC, BMP, ADIFF ####[place] [address] Electrolyte Balance Unable to Calculate Normal 4.0-15. 0 [facility] ([place] Comment on above: Result Comment: Unab le to calculate this test result accurately. Results used to calculate this test are outside the reportable range. Performed By: #### M G, ANEU, GFR, CBC, BMP, ADIFF ####[place] [address] BUN/Creatinine Ratio 15.9 ratio Normal 10.0-22.0 [facility] ([place]) Comment on above: Performed By: #### M G, ANEU, GFR, CBC, BMP, ADIFF ####[place] [address] Calcium [Mass/Vol] 9.2 mg/dL Normal 8.7-10.4 [facility] ([place]) Comment on above: Performed By: #### M G, ANEU, GFR, CBC, BMP, ADIFF ####[place] [address] Chloride [Moles/Vol] 96 mmol/L Low 98-110 [facility] ([place]) Comment on above: Performed By: #### M G, ANEU, GFR, CBC, BMP, ADIFF ####[address] [address] Creatinine [Mass/Vol] 1.26 mg/dL Normal 0.60-1.40 [facility] ([place]) Comment on above: Performed By: #### M G, ANEU, GFR, CBC, BMP, ADIFF ####[address] [address] Glucose [Mass/Vol] 97 mg/dL Normal 70-110 [facility] ([place]) Comment on above: Performed By: #### M G, ANEU, GFR, CBC, BMP, ADIFF ####[address] [address] Potassium [Moles/Vol] 4.0 mmol/L Normal 3.5-5.0 [facility] ([place]) Comment on above: Performed By: #### M G, ANEU, GFR, CBC, BMP, ADIFF ####[place] [address] Sodium [Moles/Vol] 140 mmol/L Normal 136-145 [facility] ([place]) Comment on above: Performed By: #### M G, ANEU, GFR, CBC, BMP, ADIFF ####[place] [address] Urea nitrogen [Mass/Vol] 20.0 mg/dL Normal 8.0-22.0 [facility] [place] Comment on above: Performed By: #### M G, ANEU, GFR, CBC, BMP, ADIFF ####[address] [address] CBCon 09-20-2023 Erythrocyte distribution width (RBC) [Ratio] 16.3 % High 11.5-15.5 [facility] [place] Comment on above: Order Comment: order ed secondary to warfarin order Performed By: #### C ELLI KAMINSKI, ANEU ####[place] [address] Hematocrit (Bld) [Volume fraction] 41.0 % Normal 40.0-52.0 [facility] [place] Comment on above: Order Comment: order ed secondary to warfarin order Performed By: #### C ELLI KAMINSKI, ANEU ####[place] [address] Hgb 13.3 G/dL Normal 13.0-17.5 [facility] [place] Comment on above: Order Comment: order ed secondary to warfarin order Performed By: #### C ELLI KAMINSKI, ANEU ####[place] [address] MCH (RBC) [Entitic mass] 30.4 pg Normal 27.0-33.0 [facility] [place] Comment on above: Order Comment: order ed secondary to warfarin order Performed By: #### C ELLI KAMINSKI, ANEU ####[place] [address] MCHC 32.3 G/dL Normal 32.0-36.0 [facility] [place] Comment on above: Order Comment: order ed secondary to warfarin order Performed By: #### C ELLI KAMINSKI, ANEU ####[place] [address] MCV (RBC) [Entitic vol] 93.9 fL Normal 81.0-100.0 [facility] [place] Comment on above: Order Comment: order ed secondary to warfarin order Performed By: #### C ELLI KAMINSKI, ANEU ####[place] [address] Platelet 190 10 3/mcL Normal 150-450 [facility] [place] Comment on above: Order Comment: order ed secondary to warfarin order Performed By: #### C ELLI KAMINSKI, ANEU ####[place] [address] Platelet mean volume (Bld) [Entitic vol] 7.4 fL Normal 6.4-10.5 [facility] [place] Comment on above: Order Comment: order ed secondary to warfarin order Performed By: #### C ELLI KAMINSKI, ANEU ####[place] [address] RBC 4.37 10 6/mcL Low 4.50-6.00 [facility] [place] Comment on above: Order Comment: order ed secondary to warfarin order Performed By: #### C SONYA KAMINSKIIFF, ANEU ####[place] [address] WBC 6.6 10 3/mcL Normal 4.5-10.8 [facility] ([place] Comment on above: Order Comment: order ed secondary to warfarin order Performed By: #### C BC, ADIFF, ANEU ####[place] [address] Erythrocyte distribution width (RBC) [Ratio] 16.2 % High 11.5-15.5 [facility] ([place] Comment on above: Performed By: #### M G, ANEU, GFR, CBC, BMP, ADIFF ####[place] [address] Hematocrit (Bld) [Volume fraction] 41.6 % Normal 40.0-52.0 [facility] ([place] Comment on above: Performed By: #### M G, ANEU, GFR, CBC, BMP, ADIFF ####[place] [address] Hgb 13.6 G/dL Normal 13.0-17.5 [facility] ([place] Comment on above: Performed By: #### M G, ANEU, GFR, CBC, BMP, ADIFF ####[place] [address] MCH (RBC) [Entitic mass] 30.9 pg Normal 27.0-33.0 [facility] ([place] Comment on above: Performed By: #### M G, ANEU, GFR, CBC, BMP, ADIFF ####[place] [address] MCHC 32.7 G/dL Normal 32.0-36.0 [facility] ([place] Comment on above: Performed By: #### M G, ANEU, GFR, CBC, BMP, ADIFF ####[place] [address] MCV (RBC) [Entitic vol] 94.6 fL Normal 81.0-100.0 [facility] ([place] Comment on above: Performed By: #### M G, ANEU, GFR, CBC, BMP, ADIFF ####[address] [address] Platelet 212 10 3/mcL Normal 150-450 [facility] ([place] Comment on above: Performed By: #### M G, ANEU, GFR, CBC, BMP, ADIFF ####[address] [address] Platelet mean volume (Bld) [Entitic vol] 7.3 fL Normal 6.4-10.5 [facility] ([place] Comment on above: Performed By: #### M G, ANEU, GFR, CBC, BMP, ADIFF ####[place] [address] RBC 4.40 10 6/mcL Low 4.50-6.00 [facility] ([place] Comment on above: Performed By: #### M G, ANEU, GFR, CBC, BMP, ADIFF ####[place] [address] WBC 5.8 10 3/mcL Normal 4.5-10.8 [facility] ([place] Comment on above: Performed By: #### M G, ANEU, GFR, CBC, BMP, ADIFF ####[place] [address] MGon 09-20-2023 Magnesium [Mass/Vol] 2.0 mg/dL Normal 1.6-2.4 [facility] ([place]) Comment on above: Performed By: #### M G, ANEU, GFR, CBC, BMP, ADIFF ####[place] [address] PROon 09-20-2023 INR Coag (PPP) [Relative time] 2.3 {INR} Normal [facility] ([place] Comment on above: Result Comment: [employer] (CHEST, 1992, 102:312S-25S)recommended therapeutic range for oral anticoagulant therapy is:LOW RISK: Prophylaxis of venous thrombosis INR: 2.0-3.0 Treatment of pulmonary embolism 2.0-3.0 Prevention of systemic embolism 2.0-3.0HIGH RISK: Mechanical prosthetic valves 2.5-3.5 Performed By: #### P RO ####[address] [address] PT Coag (PPP) [Time] 26.6 s High 9.0-14.4 [facility] ([place]) Comment on above: Result Comment: Effe ctive 08/28/07, Protime results may be affected by some antibiotics (i.e. Ciprofloxacin, Azithromycin, Bactrim) which may potentiate the action of oral anticoagulants, with further increases in Protime/INR. Performed By: #### P RO ####[place] [address] .Auto Diffon 09-19-2023 Basophil, Absolute 0.1 10 3/mcL Normal 0.0-0.3 [facility] ([place]) Comment on above: Performed By: #### G FR, MG, CBC, BMP, ANEU, ADIFF ####[place] [address] Basophils/100 WBC (Bld) 1.0 % Normal 0.0-2.5 [facility] [place] Comment on above: Performed By: #### G FR, MG, CBC, BMP, ANEU, ADIFF ####[address] [address] Eosinophil, Absolute 0.4 10 3/mcL Normal 0.0-0.7 [facility] ([place]) Comment on above: Performed By: #### G FR, MG, CBC, BMP, ANEU, ADIFF ####[address] [address] Eosinophils/100 WBC (Bld) 7.3 % High 0.0-6.0 [facility] [place] Comment on above: Performed By: #### G FR, MG, CBC, BMP, ANEU, ADIFF ####[address] [address] Lymphocyte, Absolute 0.7 10 3/mcL Low 0.9-4.3 [facility] ([place]) Comment on above: Performed By: #### G FR, MG, CBC, BMP, ANEU, ADIFF ####[address] [address] Lymphocytes/100 WBC (Bld) 11.7 % Low 20.0-40.0 [facility] [place] Comment on above: Performed By: #### G FR, MG, CBC, BMP, ANEU, ADIFF ####[place] [address] [place] [address] Monocyte, Absolute 0.5 10 3/mcL Normal 0.1-1.4 [facility] ([place]) Comment on above: Performed By: #### G FR, MG, CBC, BMP, ANEU, ADIFF ####[address] [address] Monocytes/100 WBC (Bld) 9.3 % Normal 2.0-13.0 [facility] [place] Comment on above: Performed By: #### G FR, MG, CBC, BMP, ANEU, ADIFF ####[address] [address] Neutrophils/100 WBC (Bld) 70.7 % Normal 50.0-75.0 [facility] [place] Comment on above: Performed By: #### G FR, MG, CBC, BMP, ANEU, ADIFF ####[address] [address] .GFRon 09-19-2023 GFR >60 Normal [facility] ([place]) Comment on above: Result Comment: GFR Population [...] Performed By: #### M G, GFR, BMP ####[address] [address] GFR Non- >60 Normal [facility] [place] Comment on above: Result Comment: GFR Population [...] Performed By: #### M G, GFR, BMP ####[address] [address] GFR Non- >60 Normal [facility] [place] Comment on above: Result Comment: GFR Population [...] G FR, MG, CBC, BMP, ANEU, ADIFF ####[address] [address] GFR >60 Normal [facility] ([place]) Comment on above: Result Comment: GFR Population [...] G FR, MG, CBC, BMP, ANEU, ADIFF ####[address] [address] .NEUABSon 09-19-2023 Neutrophil, Absolute 4.0 10 3/mcL Normal 2.3-8.1 [facility] ([place] Comment on above: Performed By: #### G FR, MG, CBC, BMP, ANEU, ADIFF ####[place] [address] BMPon 09-19-2023 CO2 [Moles/Vol] mmol/L Critically abnormal 22-32 [facility] [place] Comment on above: Performed By: #### M G, GFR, BMP ####[place] [address] Electrolyte Balance See comment Normal 4.0-15.0 [facility] ([place]) Comment on above: Result Comment: Unab le to calculate this test result accurately. Results used to calculate this test are outside the reportable range. Performed By: #### M G, GFR, BMP ####[place] [address] BUN/Creatinine Ratio 16.5 ratio Normal 10.0-22.0 [facility] ([place]) Comment on above: Performed By: #### M G, GFR, BMP ####[place] [address] Calcium [Mass/Vol] 9.1 mg/dL Normal 8.7-10.4 [facility] ([place] Comment on above: Performed By: #### M G, GFR, BMP ####[place] [address] Chloride [Moles/Vol] 96 mmol/L Low 98-110 [facility] ([place]) Comment on above: Performed By: #### M G, GFR, BMP ####[address] [place], [place] [address] Creatinine [Mass/Vol] 1.27 mg/dL Normal 0.60-1.40 [facility] ([place] Comment on above: Performed By: #### Piper Castro, GFR, BMP ####[place] [address] Glucose [Mass/Vol] 92 mg/dL Normal 70-110 [facility] ([place]) Comment on above: Performed By: #### Piper Castro, GFR, BMP ####[address] [address] Potassium [Moles/Vol] 3.7 mmol/L Normal 3.5-5.0 [facility] ([place] Comment on above: Performed By: #### Piper Castro, GFR, BMP ####[place] [address] Sodium [Moles/Vol] 140 mmol/L Normal 136-145 [facility] ([place]) Comment on above: Performed By: #### Piper Castro, GFR, BMP ####[place] [address] Urea nitrogen [Mass/Vol] 21.0 mg/dL Normal 8.0-22.0 [facility] [place] Comment on above: Performed By: #### Piper Castro, GFR, BMP ####[place] [address] CO2 [Moles/Vol] mmol/L Critically abnormal 22-32 [facility] [place] Comment on above: Performed By: #### G FR, MG, CBC, BMP, ANEU, ADIFF ####[place] [address] Electrolyte Balance Unable to Calculate Normal 4.0-15. 0 [facility] [place] Comment on above: Result Comment: Unab le to calculate this test result accurately. Results used to calculate this test are outside the reportable range. Performed By: #### G FR, MG, CBC, BMP, ANEU, ADIFF ####[place] [address] BUN/Creatinine Ratio 17.7 ratio Normal 10.0-22.0 [facility] ([place]) Comment on above: Performed By: #### G FR, MG, CBC, BMP, ANEU, ADIFF ####[address] [address] Calcium [Mass/Vol] 8.7 mg/dL Normal 8.7-10.4 [facility] ([place]) Comment on above: Performed By: #### G FR, MG, CBC, BMP, ANEU, ADIFF ####[address] [address] Chloride [Moles/Vol] 98 mmol/L Normal 98-110 [facility] ([place]) Comment on above: Performed By: #### G FR, MG, CBC, BMP, ANEU, ADIFF ####[address] [address] Creatinine [Mass/Vol] 1.24 mg/dL Normal 0.60-1.40 [facility] ([place]) Comment on above: Performed By: #### G FR, MG, CBC, BMP, ANEU, ADIFF ####[place] [address] Glucose [Mass/Vol] 123 mg/dL High 70-110 [facility] [facility] ([place] Comment on above: Performed By: #### G FR, MG, CBC, BMP, ANEU, ADIFF ####[address] [address] Potassium [Moles/Vol] 3.5 mmol/L Normal 3.5-5.0 [facility] ([place]) Comment on above: Performed By: #### G FR, MG, CBC, BMP, ANEU, ADIFF ####[address] [address] Sodium [Moles/Vol] 142 mmol/L Normal 136-145 [facility] ([place]) Comment on above: Performed By: #### G FR, MG, CBC, BMP, ANEU, ADIFF ####[address] [address] Urea nitrogen [Mass/Vol] 22.0 mg/dL Normal 8.0-22.0 [facility] ([place] Comment on above: Performed By: #### G FR, MG, CBC, BMP, ANEU, ADIFF ####[place] [address] CBCon 09-19-2023 Erythrocyte distribution width (RBC) [Ratio] 16.2 % High 11.5-15.5 [facility] ([place] Comment on above: Performed By: #### G FR, MG, CBC, BMP, ANEU, ADIFF ####[place] [address] Hematocrit (Bld) [Volume fraction] 40.3 % Normal 40.0-52.0 [facility] ([place] Comment on above: Performed By: #### G FR, MG, CBC, BMP, ANEU, ADIFF ####[place] [address] Hgb 13.0 G/dL Normal 13.0-17.5 [facility] [place] Comment on above: Performed By: #### G FR, MG, CBC, BMP, ANEU, ADIFF ####[place] [address] MCH (RBC) [Entitic mass] 30.7 pg Normal 27.0-33.0 [facility] ([place] Comment on above: Performed By: #### G FR, MG, CBC, BMP, ANEU, ADIFF ####[place] [address] MCHC 32.4 G/dL Normal 32.0-36.0 [facility] ([place] Comment on above: Performed By: #### G FR, MG, CBC, BMP, ANEU, ADIFF ####[place] [address] MCV (RBC) [Entitic vol] 94.8 fL Normal 81.0-100.0 [facility] ([place] Comment on above: Performed By: #### G FR, MG, CBC, BMP, ANEU, ADIFF ####[place] [address] Platelet 210 10 3/mcL Normal 150-450 [facility] [place] Comment on above: Performed By: #### G FR, MG, CBC, BMP, ANEU, ADIFF ####[place] [address] Platelet mean volume (Bld) [Entitic vol] 7.4 fL Normal 6.4-10.5 [facility] ([place]) Comment on above: Performed By: #### G FR, MG, CBC, BMP, ANEU, ADIFF ####[place] [id number] [place] [address] RBC 4.25 10 6/mcL Low 4.50-6.00 [facility] ([place]) Comment on above: Performed By: #### G FR, MG, CBC, BMP, ANEU, ADIFF ####[place] [address] [place] [address] WBC 5.7 10 3/mcL Normal 4.5-10.8 [facility] ([place] Comment on above: Performed By: #### G FR, MG, CBC, BMP, ANEU, ADIFF ####[place] [address] CT ANGIOGRAPHY CHEST W/CONTR Isi 09-19-2023 CT ANGIOGRAPHY CHEST W/CONTRAST Normal [facility] ([place]) MGon 09-19-2023 Magnesium [Mass/Vol] 1.6 mg/dL Normal 1.6-2.4 [facility] ([place]) Comment on above: Performed By: #### M G, GFR, BMP ####[place] [address] Magnesium [Mass/Vol] 1.6 mg/dL Normal 1.6-2.4 [facility] ([place]) Comment on above: Performed By: #### G FR, MG, CBC, BMP, ANEU, ADIFF ####[place] [address] PROon 09-19-2023 INR Coag (PPP) [Relative time] 2.8 {INR} Normal [facility] ([place]) Comment on above: Order Comment: Proti me drawn in tube. Called Piper Neal RN for recollect. Told her she may need to refresh her tube stock. 09/19/2023 11:07:30 EDT Result Comment: [employer] (CHEST, 1992, 102:312S-25S)recommended therapeutic range for oral anticoagulant therapy is:LOW RISK: Prophylaxis of venous thrombosis INR: 2.0-3.0 Treatment of pulmonary embolism 2.0-3.0 Prevention of systemic embolism 2.0-3.0HIGH RISK: Mechanical prosthetic valves 2.5-3.5 Performed By: #### P RO ####[address] [address] PT Coag (PPP) [Time] 32.3 s High 9.0-14.4 [facility] ([place]) Comment on above: Order Comment: Proti me [...] in Protime/INR. Performed By: #### P RO ####[place] [address] .Auto Diffon 09-18-2023 Basophil, Absolute 0.1 10 3/mcL Normal 0.0-0.3 [facility] ([place]) Comment on above: Performed By: #### A DIFF, HFP, CBC, ANEU ####[address] [address] Basophils/100 WBC (Bld) 1.2 % Normal 0.0-2.5 [facility] ([place]) Comment on above: Performed By: #### A DIFF, HFP, CBC, ANEU ####[address] [address] Eosinophil, Absolute 0.3 10 3/mcL Normal 0.0-0.7 [facility] ([place]) Comment on above: Performed By: #### A DIFF, HFP, CBC, ANEU ####[address] [address] Eosinophils/100 WBC (Bld) 5.2 % Normal 0.0-6.0 [facility] ([place]) Comment on above: Performed By: #### A DIFF, HFP, CBC, ANEU ####[address] [address] Lymphocyte, Absolute 0.8 10 3/mcL Low 0.9-4.3 [facility] ([place]) Comment on above: Performed By: #### A DIFF, HFP, CBC, ANEU ####[address] [address] Lymphocytes/100 WBC (Bld) 12.7 % Low 20.0-40.0 [facility] ([place] Comment on above: Performed By: #### A DIFF, HFP, CBC, ANEU ####[address] [address] Monocyte, Absolute 0.8 10 3/mcL Normal 0.1-1.4 [facility] ([place]) Comment on above: Performed By: #### A DIFF, HFP, CBC, ANEU ####[address] [address] Monocytes/100 WBC (Bld) 12.8 % Normal 2.0-13.0 [facility] ([place] Comment on above: Performed By: #### A DIFF, HFP, CBC, ANEU ####[address] [address] Neutrophils/100 WBC (Bld) 68.1 % Normal 50.0-75.0 [facility] ([place] Comment on above: Performed By: #### A DIFF, HFP, CBC, ANEU ####[address] [address] .GFRon 09-18-2023 GFR >60 Normal [facility] ([place]) Comment on above: Result Comment: GFR Population [...] Performed By: #### B MP, GFR, MG ####[address] [address] GFR Non- >60 Normal [facility] ([place]) Comment on above: Result Comment: GFR Population [...] Performed By: #### B MP, GFR, MG ####[address] [address] GFR >60 Normal [facility] ([place]) Comment on above: Result Comment: GFR Population [...] By: #### B MP, PRO, GFR, MG ####[address] [address] GFR Non- >60 Normal [facility] ([place]) Comment on above: Result Comment: GFR Population [...] By: #### B MP, PRO, GFR, MG ####[address] [address] .NEUABSon 09-18-2023 Neutrophil, Absolute 4.2 10 3/mcL Normal 2.3-8.1 [facility] ([place]) Comment on above: Performed By: #### A DIFF, HFP, CBC, ANEU ####[address] [address] BMPon 09-18-2023 BUN/Creatinine Ratio 18.1 ratio Normal 10.0-22.0 [facility] ([place]) Comment on above: Performed By: #### B MP, GFR, MG ####[address] [address] Calcium [Mass/Vol] 8.4 mg/dL Low 8.7-10.4 [facility] ([place]) Comment on above: Performed By: #### B MP, GFR, MG ####[address] [address] Chloride [Moles/Vol] 101 mmol/L Normal 98-110 [facility] ([place]) Comment on above: Performed By: #### B MP, GFR, MG ####[address] [address] CO2 [Moles/Vol] 37 mmol/L High 22-32 [facility] ([place]) Comment on above: Performed By: #### B MP, GFR, MG ####[address] [address] Creatinine [Mass/Vol] 1.27 mg/dL Normal 0.60-1.40 [facility] ([place]) Comment on above: Performed By: #### B MP, GFR, MG ####[address] [address] Electrolyte Balance 2.0 mEq/L Low 4.0-15.0 [facility] ([place]) Comment on above: Performed By: #### B MP, GFR, MG ####[address] [address] Glucose [Mass/Vol] 96 mg/dL Normal 70-110 [facility] ([place]) Comment on above: Performed By: #### B MP, GFR, MG ####[address] [address] Potassium [Moles/Vol] 3.9 mmol/L Normal 3.5-5.0 [facility] ([place]) Comment on above: Performed By: #### B MP, GFR, MG ####[address] [address] Sodium [Moles/Vol] 140 mmol/L Normal 136-145 [facility] ([place]) Comment on above: Performed By: #### B MP, GFR, MG ####[address] [address] Urea nitrogen [Mass/Vol] 23.0 mg/dL High 8.0-22.0 [facility] ([place]) Comment on above: Performed By: #### B MP, GFR, MG ####[address] [address] BUN/Creatinine Ratio 19.4 ratio Normal 10.0-22.0 [facility] ([place]) Comment on above: Performed By: #### B MP, PRO, GFR, MG ####[address] [address] Calcium [Mass/Vol] 8.7 mg/dL Normal 8.7-10.4 [facility] ([place]) Comment on above: Performed By: #### B MP, PRO, GFR, MG ####[address] [address] Chloride [Moles/Vol] 102 mmol/L Normal 98-110 [facility] ([place]) Comment on above: Performed By: #### B MP, PRO, GFR, MG ####[place] [address] CO2 [Moles/Vol] 37 mmol/L High 22-32 [facility] ([place]) Comment on above: Performed By: #### B MP, PRO, GFR, MG ####[place] [address] Creatinine [Mass/Vol] 1.29 mg/dL Normal 0.60-1.40 [facility] ([place]) Comment on above: Performed By: #### B MP, PRO, GFR, MG ####[place] [address] Electrolyte Balance 2.0 mEq/L Low 4.0-15.0 [facility] ([place]) Comment on above: Performed By: #### B MP, PRO, GFR, MG ####[place] [address] Glucose [Mass/Vol] 103 mg/dL Normal 70-110 [facility] ([place]) Comment on above: Performed By: #### B MP, PRO, GFR, MG ####[place] [address] Potassium [Moles/Vol] 3.7 mmol/L Normal 3.5-5.0 [facility] ([place]) Comment on above: Performed By: #### B MP, PRO, GFR, MG ####[place] [address] Sodium [Moles/Vol] 141 mmol/L Normal 136-145 [facility] ([place]) Comment on above: Performed By: #### B MP, PRO, GFR, MG ####[place] [address] Urea nitrogen [Mass/Vol] 25.0 mg/dL High 8.0-22.0 [facility] ([place]) Comment on above: Performed By: #### B MP, PRO, GFR, MG ####[place] [address] CBCon 09-18-2023 Erythrocyte distribution width (RBC) [Ratio] 16.7 % High 11.5-15.5 [facility] ([place]) Comment on above: Performed By: #### A DIFF, HFP, CBC, ANEU ####[address] [address] Hematocrit (Bld) [Volume fraction] 41.4 % Normal 40.0-52.0 [facility] ([place] Comment on above: Performed By: #### A DIFF, HFP, CBC, ANEU ####[address] [address] Hgb 13.2 G/dL Normal 13.0-17.5 [facility] [place] Comment on above: Performed By: #### A DIFF, HFP, CBC, ANEU ####[address] [address] MCH (RBC) [Entitic mass] 30.7 pg Normal 27.0-33.0 [facility] ([place] Comment on above: Performed By: #### A DIFF, HFP, CBC, ANEU ####[place] [address] MCHC 32.0 G/dL Normal 32.0-36.0 [facility] ([place] Comment on above: Performed By: #### A DIFF, HFP, CBC, ANEU ####[address] [address] MCV (RBC) [Entitic vol] 95.9 fL Normal 81.0-100.0 [facility] ([place] Comment on above: Performed By: #### A DIFF, HFP, CBC, ANEU ####[address] [address] Platelet 205 10 3/mcL Normal 150-450 [facility] [place] Comment on above: Performed By: #### A DIFF, HFP, CBC, ANEU ####[address] [address] Platelet mean volume (Bld) [Entitic vol] 7.6 fL Normal 6.4-10.5 [facility] ([place]) Comment on above: Performed By: #### A DIFF, HFP, CBC, ANEU ####[address] [address] RBC 4.32 10 6/mcL Low 4.50-6.00 [facility] ([place] Comment on above: Performed By: #### A DIFF, HFP, CBC, ANEU ####[address] [address] WBC 6.2 10 3/mcL Normal 4.5-10.8 [facility] ([place] Comment on above: Performed By: #### A DIFF, HFP, CBC, ANEU ####[address] [address] HFPon 09-18-2023 Bili Indirect 0.3 mg/dL Normal 0.1-10.0 [facility] ([place]) Comment on above: Performed By: #### A DIFF, HFP, CBC, ANEU ####[place] [address] Albumin Level 3.0 G/dL Low 3.2-4.8 [facility] ([place] Comment on above: Performed By: #### A DIFF, HFP, CBC, ANEU ####[address] [address] Albumin/Globulin [Mass ratio] 0.9 {ratio} Normal 0.9-1.6 [facility] ([place] Comment on above: Performed By: #### A DIFF, HFP, CBC, ANEU ####[address] [address] ALP [Catalytic activity/Vol] 153 U/L High 38-126 [facility] ([place] Comment on above: Performed By: #### A DIFF, HFP, CBC, ANEU ####[address] [address] ALT [Catalytic activity/Vol] 14 U/L Normal 12-55 [facility] ([place] Comment on above: Performed By: #### A DIFF, HFP, CBC, ANEU ####[address] [address] AST [Catalytic activity/Vol] 20 U/L Normal 8-34 [facility] ([place] Comment on above: Performed By: #### A DIFF, HFP, CBC, ANEU ####[address] [address] Bili Direct 0.8 mg/dL High 0.0-0.4 [facility] ([place] Comment on above: Result Comment: Use of this assay is not recommended for patients undergoing treatment with eltrombopag due to the potential for falsely elevated results. Performed By: #### A DIFF, HFP, CBC, ANEU ####[place] [address] Bili Total 1.10 mg/dL Normal 0.20-1.20 [facility] [place] Comment on above: Result Comment: Use of this assay is not recommended for patients undergoing treatment with eltrombopag due to the potential for falsely elevated results. Performed By: #### A DIFF, HFP, CBC, ANEU ####[place] [address] Globulin 3.3 G/dL Normal 1.5-3.8 [facility] ([place] Comment on above: Performed By: #### A DIFF, HFP, CBC, ANEU ####[place] [address] Total Protein 6.3 G/dL Normal 5.7-8.2 [facility] ([place]) Comment on above: Result Comment: No te - New Reference Range in effect 19 Performed By: #### A DIFF, HFP, CBC, ANEU ####[place] [address] LABORATORYOrdered By: SYSTEM SYSTEM on 09-18-2023 Albumin [...] 09-18-2023 Magnesium [Mass/Vol] 2.0 mg/dL Normal 1.6-2.4 [facility]) Comment on above: Performed By: #### B MP, GFR, MG ####[address] [address] Magnesium [Mass/Vol] 1.4 mg/dL Low 1.6-2.4 [facility]) Comment on above: Performed By: #### B MP, PRO, GFR, MG ####[address] [address] NM PULMONARY PERFUSION ONLYo n 09-18-2023 NM PULMONARY PERFUSION ONLY Normal [facility] [place] PROon 09-18-2023 INR Coag (PPP) [Relative time] 3.3 {INR} Normal [facility] ([place]) Comment on above: Order Comment: pleas e fill the tube at least 90%. called jose Result Comment: [employer] (CHEST, 1992, 102:312S-25S)recommended therapeutic range for oral anticoagulant therapy is:LOW RISK: Prophylaxis of venous thrombosis INR: 2.0-3.0 Treatment of pulmonary embolism 2.0-3.0 Prevention of systemic embolism 2.0-3.0HIGH RISK: Mechanical prosthetic valves 2.5-3.5 Performed By: #### B MP, PRO, GFR, MG ####[address] [address] PT Coag (PPP) [Time] 38.7 s High 9.0-14.4 [facility] ([place]) Comment on above: Order Comment: pleas e fill the tube at least 90%. called jose Result Comment: Effe ctive 08/28/07, Protime results may be affected by some antibiotics (i.e. Ciprofloxacin, Azithromycin, Bactrim) which may potentiate the action of oral anticoagulants, with further increases in Protime/INR. Performed By: #### B MP, PRO, GFR, MG ####[place] [address] [place] [address] XR CHEST 2 VIEWSon XR CHEST 2 VIEWS Normal [facility] ([place]) .GFRon 09-17-2023 GFR 58 ml/min/1.73sqm Normal [facility] ([place]) Comment on above: Result Comment: GFR [...] By: #### M G, GFR, BMP ####[address] [place], [place] [address] GFR Non- 48 ml/min/1.73sqm Normal [facility] ([place]) Comment on above: Result Comment: GFR [...] #### Piper Castro, GFR, BMP ####[address] [place], [place] [address] BMPon 09-17-2023 BUN/Creatinine Ratio 16 ratio Normal 7-27 [facility] ([place]) Comment on above: Performed By: #### Piper Castro, GFR, BMP ####[address] [place], [place] [address] Calcium [Mass/Vol] 8.6 mg/dL Normal 8.4-10.2 [facility] ([place]) Comment on above: Performed By: #### Piper Castro, GFR, BMP ####[address] [place], [place] [address] Chloride [Moles/Vol] 104 mmol/L Normal 98-107 [facility] ([place]) Comment on above: Performed By: #### Piper Castro, GFR, BMP ####[address] [place], [place] [address] CO2 [Moles/Vol] 36 mmol/L High 22-29 [facility] [place]) Comment on above: Performed By: #### Piper Castro, GFR, BMP ####[address] [place], [place] [address] Creatinine [Mass/Vol] 1.59 mg/dL High 0.70-1.30 [facility] ([place]) Comment on above: Performed By: #### Piper Castro, GFR, BMP ####[address] [place], [place] [address] Electrolyte Balance 3.0 mEq/L Low 4.0-15.0 [facility] ([place]) Comment on above: Performed By: #### M G, GFR, BMP ####[address] [place], [place] [address] Glucose [Mass/Vol] 93 mg/dL Normal 70-105 [facility] ([place]) Comment on above: Performed By: #### Piper G, GFR, BMP ####[address] [place], [place] [address] Potassium [Moles/Vol] 4.6 mmol/L Normal 3.5-5.1 [facility] ([place]) Comment on above: Performed By: #### Piper G, GFR, BMP ####[address] [place], [place] [address] Sodium [Moles/Vol] 143 mmol/L Normal 136-145 [facility] ([place]) Comment on above: Performed By: #### Piper G, GFR, BMP ####[address] [place], [place] [address] Urea nitrogen [Mass/Vol] 25 mg/dL High 7-18 [facility] [place] Comment on above: Performed By: #### Piper G, GFR, BMP ####[address] [place], [place] [address] CBLon 09-17-2023 CBL Normal [facility]) LABORATORYOrdered By: SYSTEM SYSTEM on [...] Comment on above: Interpretive Data: T he [employer] (CHEST, 1991, 102:312S-25S) recommended therapeutic range for oral anticoagulant therapy is: LOW RISK: Prophylaxis of venous thrombosis INR: 2.0-3.0 Treatment of pulmonary embolism 2.0-3.0 Prevention of systemic embolism 2.0-3.0 HIGH RISK: Mechanical prosthetic valves 2.5-3.5 MGon 09-17-2023 Magnesium [Mass/Vol] 1.6 mg/dL Low 1.8-2.4 [facility] ([place]) Comment on above: Performed By: #### Piper Castro GFR, BMP ####[address] [place], [place] [address] PROon 09-17-2023 PT Coag (PPP) [Time] 44.0 s High 9.0-14.4 [facility] ([place]) Comment on above: Order Comment: order ed secondary to warfarin order Performed By: #### Piper Castro GFR, BMP ####[address] [place], [place] [address] PT International Ratio 3.8 Normal [facility] ([place]) Comment on above: Order Comment: order ed secondary to warfarin order Result Comment: [employer] (CHEST, 1991, 102:312S-25S)recommended therapeutic range for oral anticoagulant therapy is:LOW RISK: Prophylaxis of venous thrombosis INR: 2.0-3.0 Treatment of pulmonary embolism 2.0-3.0 Prevention of systemic embolism 2.0-3.0HIGH RISK: Mechanical prosthetic valves 2.5-3.5 Performed By: #### Piper Castro GFR, BMP ####[address] [place], [place] [address] .GFRon 09-16-2023 GFR Non- 55 ml/min/1.73sqm Normal [facility] [place] Comment on above: Result Comment: GFR Population [...] MP, MG, PRO, TROPHS, GFR ####[address] [place], [place] [address] GFR 66 ml/min/1.73sqm Normal [facility] [place] Comment on above: Result Comment: GFR Population [...] MP, MG, PRO, TROPHS, GFR ####[address] [place], [place] [address] BMPon 09-16-2023 BUN/Creatinine Ratio 15 ratio Normal 7-27 [facility] ([place]) Comment on above: Performed By: #### B MP, MG, PRO, TROPHS, GFR ####[address] [place], [place] [address] Calcium [Mass/Vol] 9.1 mg/dL Normal 8.4-10.2 [facility] ([place]) Comment on above: Performed By: #### B MP, MG, PRO, TROPHS, GFR ####[address] [place], [place] [address] Chloride [Moles/Vol] 102 mmol/L Normal 98-107 [facility] ([place]) Comment on above: Performed By: #### B MP, MG, PRO, TROPHS, GFR ####[address] [place], [place] [address] CO2 [Moles/Vol] 30 mmol/L High 22-29 [facility] [place] Comment on above: Performed By: #### B MP, MG, PRO, TROPHS, GFR ####[address] [place], [place] [address] Creatinine [Mass/Vol] 1.41 mg/dL High 0.70-1.30 [facility] ([place]) Comment on above: Performed By: #### B MP, MG, PRO, TROPHS, GFR ####[address] [place], [place] [address] Electrolyte Balance 7.0 mEq/L Normal 4.0-15.0 [facility] ([place]) Comment on above: Performed By: #### B MP, MG, PRO, TROPHS, GFR ####[address] [place], [place] [address] Glucose [Mass/Vol] 122 mg/dL High 70-105 [facility] ([place]) Comment on above: Performed By: #### B MP, MG, PRO, TROPHS, GFR ####[address] [place], [place] [address] Potassium [Moles/Vol] 5.3 mmol/L High 3.5-5.1 [facility] ([place]) Comment on above: Performed By: #### B MP, MG, PRO, TROPHS, GFR ####[address] [place], [place] [address] Sodium [Moles/Vol] 139 mmol/L Normal 136-145 [facility] ([place]) Comment on above: Performed By: #### B MP, MG, PRO, TROPHS, GFR ####[address] [place], [place] [address] Urea nitrogen [Mass/Vol] 21 mg/dL High 7-18 [facility] [place] Comment on above: Performed By: #### B MP, MG, PRO, TROPHS, GFR ####[address] [place], [place] [address] LABORATORYOrdered By: SYSTEM SYSTEM on 09-16-2023 Calcium [...] ng/L Male: 0-76 ng/L Testing performed on [employer] using a homogeneous sandwich chemiluminescent immunoassay based on [employer] technology. Urea nitrogen [Mass/Vol] 21 mg/dL High [...] Comment on above: Interpretive Data: Cindy briggs [employer] (CHEST, 1991, 102:312S-25S) [...] mg/dL Normal 1.8-2.4 [facility] ([place]) Comment on above: Performed By: #### B MP, MG, PRO, TROPHS, GFR ####[address] [place], [place] [address] PROon 09-16-2023 PT Coag (PPP) [Time] 32.2 s High 9.0-14.4 [facility] ([place]) Comment on above: Order Comment: order ed secondary to warfarin order Performed By: #### B MP, MG, PRO, TROPHS, GFR ####[address] [place], [place] [address] PT International Ratio 2.8 Normal [facility] ([place]) Comment on above: Order Comment: order ed secondary to warfarin order Result Comment: [employer] (CHEST, 1992, 102:312S-25S)recommended therapeutic range for oral anticoagulant therapy is:LOW RISK: Prophylaxis of venous thrombosis INR: 2.0-3.0 Treatment of pulmonary embolism 2.0-3.0 Prevention of systemic embolism 2.0-3.0HIGH RISK: Mechanical prosthetic valves 2.5-3.5 Performed By: #### B MP, MG, PRO, TROPHS, GFR ####[address] [place], [place] [address] TROPHSon 09-16-2023 High Sensitivity Troponin I 24 ng/L Normal 0-76 [facility] [place] Comment on above: Result Comment: High Sensitive Troponin I Reference Ranges:Female: 0-51 ng/LMale: 0-76 ng/LTesting performed on [employer] using a homogeneous sandwich chemiluminescent immunoassay based on [employer] technology. Performed By: #### B MP, MG, PRO, TROPHS, GFR ####[address] [place], [place] [address] VANCTon 09-16-2023 LDose Vancomycin:(trough) See eMAR Normal [facility] [place] Comment on above: Order Comment: Pleas e draw trough prior to hanging dose Performed By: #### V ANCT ####[address] [place], [place] [address] Vancomycin Tr 22.3 mcg/mL High 5.0-20.0 [facility] [place] Comment on above: Order Comment: Pleas e draw trough prior to hanging dose Performed By: #### V ANCT ####[address] [place], [place] [address] .GFRon 09-15-2023 GFR 64 ml/min/1.73sqm Normal [facility] [place] Comment on above: Result Comment: GFR Population [...] B MP, GFR, PRO, MG ####[address] [place], [place] [address] GFR Non- 52 ml/min/1.73sqm Normal [facility] [place] Comment on above: Result Comment: GFR Population [...] #### B MP, GFR, PRO, MG ####[address] [place], [place] [address] BMPon 09-15-2023 BUN/Creatinine Ratio 14 ratio Normal 7-27 [facility] ([place]) Comment on above: Performed By: #### B MP, GFR, PRO, MG ####[address] [place], [place] [address] Calcium [Mass/Vol] 9.0 mg/dL Normal 8.4-10.2 [facility] ([place]) Comment on above: Performed By: #### B MP, GFR, PRO, MG ####[address] [place], [place] [address] Chloride [Moles/Vol] 103 mmol/L Normal 98-107 [facility] ([place]) Comment on above: Performed By: #### B MP, GFR, PRO, MG ####[address] [place], [place] [address] CO2 [Moles/Vol] 31 mmol/L High 22-29 [facility] [place] Comment on above: Performed By: #### B MP, GFR, PRO, MG ####[address] [place], [place] [address] Creatinine [Mass/Vol] 1.46 mg/dL High 0.70-1.30 [facility] ([place]) Comment on above: Performed By: #### B MP, GFR, PRO, MG ####[address] [place], [place] [address] Electrolyte Balance 7.0 mEq/L Normal 4.0-15.0 [facility] ([place] Comment on above: Performed By: #### B MP, GFR, PRO, MG ####[address] [place], [place] [address] Glucose [Mass/Vol] 102 mg/dL Normal 70-105 [facility] ([place]) Comment on above: Performed By: #### B MP, GFR, PRO, MG ####[address] [place], [place] [address] Potassium [Moles/Vol] 5.2 mmol/L High 3.5-5.1 [facility] ([place]) Comment on above: Performed By: #### B MP, GFR, PRO, MG ####[address] [place], [place] [address] Sodium [Moles/Vol] 141 mmol/L Normal 136-145 [facility] ([place]) Comment on above: Performed By: #### B MP, GFR, PRO, MG ####Di[address] [place], [place] [address] Urea nitrogen [Mass/Vol] 20 mg/dL High 7-18 [facility] ([place] Comment on above: Performed By: #### B MP, GFR, PRO, MG ####[address] [place], [place] [address] LABORATORYOrdered By: SYSTEM SYSTEM on 09-15-2023 Natriuretic [...] ng/L Male: 0-76 ng/L Testing performed on Spinal [employer]oration using a homogeneous sandwich chemiluminescent immunoassay based on Close.io technology. Troponin I.cardiac DL <= 0.01 ng/mL [Mass/Vol] 16 ng/L Normal 0 - 76 ng/L AO ADM SS Comment on above: Interpretive Data: H igh Sensitive Troponin I Reference Ranges: Female: 0-51 ng/L Male: 0-76 ng/L Testing performed on Spinal [employer] using a homogeneous sandwich chemiluminescent immunoassay based on Close.io technology. Calcium [Mass/Vol] 9.0 mg/dL Normal 8.4 [...] Comment on above: Interpretive Data: T brigitte [employer] (CHEST, 1991, 102:312S-25S) recommended therapeutic range for oral anticoagulant therapy is: LOW RISK: Prophylaxis of venous thrombosis INR: 2.0-3.0 Treatment of pulmonary embolism 2.0-3.0 Prevention of systemic embolism 2.0-3.0 HIGH RISK: Mechanical prosthetic valves 2.5-3.5 PT Coag (PPP) [Time] 27.2 s High 9.0 - 1 4.4 seconds AO HemoHub SS MGon 09-15-2023 Magnesium [Mass/Vol] 2.0 mg/dL Normal 1.8-2.4 [facility] ([place]) Comment on above: Performed By: #### B MP, GFR, PRO, MG ####[address] [place], [place] [address] PBNPon 09-15-2023 Natriuretic peptide B (Bld) [Mass/Vol] 2068 pg/mL High 0-125 [facility] ([place]) Comment on above: Result Comment: NT-p roBNP results of less than 300 pg/mL effectivelyrules out acute congestive heart failure with 99% negative predictive value. Performed By: #### P BNP, TROPHS ####[address] [place], [place] [address] PROon 09-15-2023 PT Coag (PPP) [Time] 27.2 s High 9.0-14.4 [facility] ([place]) Comment on above: Order Comment: order ed secondary to warfarin order Performed By: #### B MP, GFR, PRO, MG ####[address] [place], [place] [address] PT International Ratio 2.3 Normal [facility] ([place]) Comment on above: Order Comment: order ed secondary to warfarin order Result Comment: [employer] (CHEST, 1991, 102:312S-25S)recommended therapeutic range for oral anticoagulant therapy is:LOW RISK: Prophylaxis of venous thrombosis INR: 2.0-3.0 Treatment of pulmonary embolism 2.0-3.0 Prevention of systemic embolism 2.0-3.0HIGH RISK: Mechanical prosthetic valves 2.5-3.5 Performed By: #### B MP, GFR, PRO, MG ####[address] [place], [place] [address] TROPHSon 09-15-2023 High Sensitivity Troponin I 22 ng/L Normal 0-76 [facility] ([place] Comment on above: Result Comment: High Sensitive Troponin I Reference Ranges:Female: 0-51 ng/LMale: 0-76 ng/LTesting performed on Dimension EXCupple using a homogeneous sandwich chemiluminescent immunoassay based on Close.io technology. Performed By: #### P BNP, TROPHS ####[address] [place], [place] [address] High Sensitivity Troponin I 16 ng/L Normal 0-76 [facility] ([place]) Comment on above: Result Comment: High Sensitive Troponin I Reference Ranges:Female: 0-51 ng/LMale: 0-76 ng/LTesting performed on Dimension EXL using a homogeneous sandwich chemiluminescent immunoassay based on Close.io technology. Performed By: #### T ROPHS ####[address] [place], [place] [address] XR CHEST 2 VIEWSon 4 XR CHEST 2 VIEWS Normal [facility] ([place]) .Auto Diffon 09-14-2023 Basophil, Absolute 0.1 10 3/mcL Normal 0.0-0.2 [facility] ([place]) Comment on above: Performed By: #### A RHONDA, GFR, MG, HFP, PRO, CBC, ADIFF, BMP ####[address] [place], [place] [address] Basophils/100 WBC (Bld) 0.9 % Normal 0.0-2.5 [facility] ([place] Comment on above: Performed By: #### A RHONDA, GFR, MG, HFP, PRO, CBC, ADIFF, BMP ####[address] [place], [place] [address] Eosinophil, Absolute 0.3 10 3/mcL Normal 0.0-0.4 [facility] ([place]) Comment on above: Performed By: #### A RHONDA, GFR, MG, HFP, PRO, CBC, ADIFF, BMP ####[address] [place], [place] [address] Eosinophils/100 WBC (Bld) 4.1 % Normal 0.0-7.0 [facility] ([place] Comment on above: Performed By: #### A RHONDA, GFR, MG, HFP, PRO, CBC, ADIFF, BMP ####[address] [place], [place] [address] Lymphocyte, Absolute 0.8 10 3/mcL Normal 0.8-3.9 [facility] ([place]) Comment on above: Performed By: #### A RHONDA, GFR, MG, HFP, PRO, CBC, ADIFF, BMP ####[address] [place], [place] [address] Lymphocytes/100 WBC (Bld) 11.2 % Normal 10.0-50.0 [facility] ([place] Comment on above: Performed By: #### A RHONDA, GFR, MG, HFP, PRO, CBC, ADIFF, BMP ####[address] [place], [place] [address] Monocyte, Absolute 0.8 10 3/mcL Normal 0.2-1.0 [facility] ([place]) Comment on above: Performed By: #### A RHONDA, GFR, MG, HFP, PRO, CBC, ADIFF, BMP ####[address] [place], [place] [address] Monocytes/100 WBC (Bld) 11.3 % Normal 1.7-13.0 [facility] ([place]) Comment on above: Performed By: #### A RHONDA, GFR, MG, HFP, PRO, CBC, ADIFF, BMP ####[address] [place], [place] [address] Neutrophils/100 WBC (Bld) 72.5 % Normal 37.0-80.0 [facility] ([place] Comment on above: Performed By: #### A RHONDA, GFR, MG, HFP, PRO, CBC, ADIFF, BMP ####[address] [place], [place] [address] .GFRon 09-14-2023 GFR 61 ml/min/1.73sqm Normal [facility] ([place] Comment on above: Result Comment: GFR Population [...] MG, HFP, PRO, CBC, ADIFF, BMP ####[address] [place], [place] [address] GFR Non- 50 ml/min/1.73sqm Normal [facility] ([place]) Comment on above: Result Comment: GFR Population [...] MG, HFP, PRO, CBC, ADIFF, BMP ####[address] [place], [place] [address] .NEUABSon 09-14-2023 Neutrophil, Absolute 5.3 10 3/mcL Normal 2.9-6.2 [facility] ([place]) Comment on above: Performed By: #### A RHONDA, GFR, MG, HFP, PRO, CBC, ADIFF, BMP ####[address] [place], [place] [address] BMPon 09-14-2023 BUN/Creatinine Ratio 14 ratio Normal 7-27 [facility] ([place]) Comment on above: Performed By: #### A RHONDA, GFR, MG, HFP, PRO, CBC, ADIFF, BMP ####[address] [place], [place] [address] Calcium [Mass/Vol] 8.6 mg/dL Normal 8.4-10.2 [facility] ([place]) Comment on above: Performed By: #### A RHONDA, GFR, MG, HFP, PRO, CBC, ADIFF, BMP ####[address] [place], [place] [address] Chloride [Moles/Vol] 105 mmol/L Normal 98-107 [facility] ([place]) Comment on above: Performed By: #### A RHONDA, GFR, MG, HFP, PRO, CBC, ADIFF, BMP ####[place] [address] [place], [place] [address] CO2 [Moles/Vol] 31 mmol/L High 22-29 [facility] ([place] Comment on above: Performed By: #### A RHONDA, GFR, MG, HFP, PRO, CBC, ADIFF, BMP ####[address] [place], [place] [address] Creatinine [Mass/Vol] 1.52 mg/dL High 0.70-1.30 [facility] ([place]) Comment on above: Performed By: #### A RHONDA, GFR, MG, HFP, PRO, CBC, ADIFF, BMP ####[place] [address] [place], [place] [address] Electrolyte Balance 4.0 mEq/L Normal 4.0-15.0 [facility] ([place]) Comment on above: Performed By: #### A RHONDA, GFR, MG, HFP, PRO, CBC, ADIFF, BMP ####[place] [address] [place], [place] [address] Glucose [Mass/Vol] 101 mg/dL Normal 70-105 [facility] ([place]) Comment on above: Performed By: #### A RHONDA, GFR, MG, HFP, PRO, CBC, ADIFF, BMP ####[address] [place], [place] [address] Potassium [Moles/Vol] 5.1 mmol/L Normal 3.5-5.1 [facility] ([place]) Comment on above: Performed By: #### A RHONDA, GFR, MG, HFP, PRO, CBC, ADIFF, BMP ####[address] [place], [place] [address] Sodium [Moles/Vol] 140 mmol/L Normal 136-145 [facility] ([place]) Comment on above: Performed By: #### A RHONDA, GFR, MG, HFP, PRO, CBC, ADIFF, BMP ####[address] [place], [place] [address] Urea nitrogen [Mass/Vol] 21 mg/dL High 7-18 [facility] ([place]) Comment on above: Performed By: #### A RHNODA, GFR, MG, HFP, PRO, CBC, ADIFF, BMP ####[address] [place], [place] [address] CBCon 09-14-2023 Erythrocyte distribution width (RBC) [Ratio] 17.2 % High 11.5-14.5 [facility] ([place]) Comment on above: Performed By: #### A RHONDA, GFR, MG, HFP, PRO, CBC, ADIFF, BMP ####[address] [place], [place] [address] Hematocrit (Bld) [Volume fraction] 41.3 % Low 42.0-52.0 [facility] ([place] Comment on above: Performed By: #### A RHONDA, GFR, MG, HFP, PRO, CBC, ADIFF, BMP ####[address] [place], [place] [address] Hgb 13.1 G/dL Low 14.0-18.0 [facility] ([place] Comment on above: Performed By: #### A RHONDA, GFR, MG, HFP, PRO, CBC, ADIFF, BMP ####[address] [place], [place] [address] MCH (RBC) [Entitic mass] 31.3 pg High 27.0-31.2 [facility] ([place] Comment on above: Performed By: #### A RHONDA, GFR, MG, HFP, PRO, CBC, ADIFF, BMP ####[address] [place], [place] [address] MCHC 31.8 G/dL Normal 31.8-35.4 [facility] ([place] Comment on above: Performed By: #### A RHONDA, GFR, MG, HFP, PRO, CBC, ADIFF, BMP ####[address] [place], [place] [address] MCV (RBC) [Entitic vol] 98.2 fL High 80.0-94.0 [facility] ([place] Comment on above: Performed By: #### A RHONDA, GFR, MG, HFP, PRO, CBC, ADIFF, BMP ####[address] [place], [place] [address] Platelet 224 10 3/mcL Normal 130-400 [facility] ([place] Comment on above: Performed By: #### A RHONDA, GFR, MG, HFP, PRO, CBC, ADIFF, BMP ####[address] [place], [place] [address] Platelet mean volume (Bld) [Entitic vol] 7.6 fL Normal 7.4-10.4 [facility] ([place] Comment on above: Performed By: #### A RHONDA, GFR, MG, HFP, PRO, CBC, ADIFF, BMP ####[address] [place], [place] [address] RBC 4.20 10 6/mcL Normal 4.04-6.13 [facility] ([place] Comment on above: Performed By: #### A RHONDA, GFR, MG, HFP, PRO, CBC, ADIFF, BMP ####[address] [place], [place] [address] WBC 7.3 10 3/mcL Normal 4.6-10.8 [facility] ([place] Comment on above: Performed By: #### A RHONDA, GFR, MG, HFP, PRO, CBC, ADIFF, BMP ####[address] [place], [place] [address] HFPon 09-14-2023 Bili Indirect 0.2 mg/dL Normal [facility] ([place] Comment on above: Performed By: #### A RHONDA, GFR, MG, HFP, PRO, CBC, ADIFF, BMP ####[address] [place], [place] [address] Albumin Level 3.1 G/dL Low 3.5-5.0 [facility] ([place] Comment on above: Performed By: #### A RHONDA, GFR, MG, HFP, PRO, CBC, ADIFF, BMP ####[address] [place], [place] [address] Albumin/Globulin [Mass ratio] 0.8 {ratio} Low 1.1-2.5 [facility] [place] Comment on above: Performed By: #### A RHONDA, GFR, MG, HFP, PRO, CBC, ADIFF, BMP ####[address] [place], [place] [address] ALP [Catalytic activity/Vol] 180 U/L High 40-135 [facility] ([place] Comment on above: Performed By: #### A RHONDA, GFR, MG, HFP, PRO, CBC, ADIFF, BMP ####[address] [place], [place] [address] ALT [Catalytic activity/Vol] 16 U/L Normal 16-63 [facility] ([place] Comment on above: Performed By: #### A RHONDA, GFR, MG, HFP, PRO, CBC, ADIFF, BMP ####[address] [place], [place] [address] AST [Catalytic activity/Vol] 16 U/L Normal 10-40 [facility] ([place] Comment on above: Performed By: #### A RHONDA, GFR, MG, HFP, PRO, CBC, ADIFF, BMP ####[address] [place], [place] [address] Bili Direct 0.7 mg/dL High 0.0-0.2 [facility] ([place] Comment on above: Result Comment: Use of this assay is not recommended for patients undergoing treatment with eltrombopag due to the potential for falsely elevated results. Performed By: #### A RHONDA, GFR, MG, HFP, PRO, CBC, ADIFF, BMP ####[address] [place], [place] [address] Bili Total 0.9 mg/dL Normal 0.2-1.0 [facility] ([place] Comment on above: Result Comment: Use of this assay is not recommended for patients undergoing treatment with eltrombopag due to the potential for falsely elevated results. Performed By: #### A RHONDA, GFR, MG, HFP, PRO, CBC, ADIFF, BMP ####[address] [place], [place] [address] Globulin 3.8 G/dL Normal [facility] ([place] Comment on above: Performed By: #### A RHONDA, GFR, MG, HFP, PRO, CBC, ADIFF, BMP ####[address] [place], [place] [address] Total Protein 6.9 G/dL Normal 6.4-8.2 [facility] ([place] Comment on above: Performed By: #### A RHONDA, GFR, MG, HFP, PRO, CBC, ADIFF, BMP ####[address] [place], [place] [address] LABORATORYOrdered By: Leelee Leong on 09-14-2023 LDose [...] 09-14-2023 Magnesium [Mass/Vol] 2.0 mg/dL Normal 1.8-2.4 [facility] ([place]) Comment on above: Performed By: #### A RHONDA, GFR, MG, HFP, PRO, CBC, ADIFF, BMP ####[address] [place], [place] [address] PROon 09-14-2023 PT Coag (PPP) [Time] 25.4 s High 9.0-14.4 [facility] ([place]) Comment on above: Order Comment: order ed secondary to warfarin order Performed By: #### A RHONDA, GFR, MG, HFP, PRO, CBC, ADIFF, BMP ####[address] [place], [place] [address] PT International Ratio 2.2 Normal [facility] ([place]) Comment on above: Order Comment: order ed secondary to warfarin order Result Comment: [employer] (CHEST, 1992, 102:312S-25S)recommended therapeutic range for oral anticoagulant therapy is:LOW RISK: Prophylaxis of venous thrombosis INR: 2.0-3.0 Treatment of pulmonary embolism 2.0-3.0 Prevention of systemic embolism 2.0-3.0HIGH RISK: Mechanical prosthetic valves 2.5-3.5 Performed By: #### A RHONDA, GFR, MG, HFP, PRO, CBC, ADIFF, BMP ####[address] [place], [place] [address] VANCTon 09-14-2023 LDose Vancomycin:(trough) See eMAR Normal [facility] [place] Comment on above: Performed By: #### V ANCT ####[address] [place], [place] [address] Vancomycin Tr 24.7 mcg/mL High 5.0-20.0 [facility] ([place] Comment on above: Performed By: #### V ANCT ####Di[address] [place], [place] [address] .Auto Diffon 09-13-2023 Basophil, Absolute 0.1 10 3/mcL Normal 0.0-0.2 [facility] ([place]) Comment on above: Performed By: #### B MP, PRO, A1C, CBC, MG, GFR, ADIFF, ANEU ####[address] [place], [place] [address] Basophils/100 WBC (Bld) 1.1 % Normal 0.0-2.5 [facility] ([place] Comment on above: Performed By: #### B MP, PRO, A1C, CBC, MG, GFR, ADIFF, ANEU ####[address] [place], [place] [address] Eosinophil, Absolute 0.3 10 3/mcL Normal 0.0-0.4 [facility] ([place]) Comment on above: Performed By: #### B MP, PRO, A1C, CBC, MG, GFR, ADIFF, ANEU ####[address] [place], [place] [address] Eosinophils/100 WBC (Bld) 3.7 % Normal 0.0-7.0 [facility] ([place] Comment on above: Performed By: #### B MP, PRO, A1C, CBC, MG, GFR, ADIFF, ANEU ####Di[address] [place], [place] [address] Lymphocyte, Absolute 0.8 10 3/mcL Normal 0.8-3.9 [facility] ([place]) Comment on above: Performed By: #### B MP, PRO, A1C, CBC, MG, GFR, ADIFF, ANEU ####Di[address] [place], [place] [address] Lymphocytes/100 WBC (Bld) 11.5 % Normal 10.0-50.0 [facility] [place] Comment on above: Performed By: #### B MP, PRO, A1C, CBC, MG, GFR, ADIFF, ANEU ####Di[address] [place], [place] [address] Monocyte, Absolute 0.7 10 3/mcL Normal 0.2-1.0 [facility] ([place]) Comment on above: Performed By: #### B MP, PRO, A1C, CBC, MG, GFR, ADIFF, ANEU ####[address] [place], [place] [address] Monocytes/100 WBC (Bld) 9.7 % Normal 1.7-13.0 [facility] [place] Comment on above: Performed By: #### B MP, PRO, A1C, CBC, MG, GFR, ADIFF, ANEU ####Diogo [address] [place], [place] [address] Neutrophils/100 WBC (Bld) 74.0 % Normal 37.0-80.0 [facility] [place] Comment on above: Performed By: #### B MP, PRO, A1C, CBC, MG, GFR, ADIFF, ANEU ####Diogo [address] [place], [place] [address] .GFRon 09-13-2023 GFR Non- 53 ml/min/1.73sqm Normal [facility] [place] Comment on above: Result Comment: GFR Population [...] PRO, A1C, CBC, MG, GFR, ADIFF, ANEU ####[place] [address] [place], [place] [address] GFR 64 ml/min/1.73sqm Normal [facility] ([place] Comment on above: Result Comment: GFR Population [...] CBC, MG, GFR, ADIFF, ANEU ####[address] [place], [place] [address] .NEUABSon 09-13-2023 Neutrophil, Absolute 5.1 10 3/mcL Normal 2.9-6.2 [facility] ([place]) Comment on above: Performed By: #### B MP, PRO, A1C, CBC, MG, GFR, ADIFF, ANEU ####[address] [place], [place] [address] .Urinalysis Microscopic (AO) on 09-13-2023 UA RBC None Seen Normal None Seen [facility] [place] Comment on above: Performed By: #### U A, UAMICAO ####[address] [place], [place] [address] UA Squam Epithelial 0-5 Abnormal None Seen [facility] ([place]) Comment on above: Performed By: #### U A UAMICAO ####[address] [place], [place] [address] UA WBC 0-5 Abnormal None Seen [facility] ([place] Comment on above: Performed By: #### U A UAMICAO ####[address] [place], [place] [address] A1Con 09-13-2023 Glucose [Mass/Vol] 126 mg/dL Normal [facility] ([place]) Comment on above: Result Comment: Isma mated Average Glucose calculated by equation ((28.7xA1C)-46.7) Performed By: #### B MP, PRO, A1C, CBC, MG, GFR, ADIFF, ANEU ####[address] [place], [place] [address] HbA1c (Bld) [Mass fraction] 6.0 % Normal 4.3-6.4 [facility] [place] Comment on above: Performed By: #### B MP, PRO, A1C, CBC, MG, GFR, ADIFF, ANEU ####[address] [place], [place] [address] BMPon 09-13-2023 BUN/Creatinine Ratio 13 ratio Normal 7-27 [facility] ([place]) Comment on above: Performed By: #### B MP, PRO, A1C, CBC, MG, GFR, ADIFF, ANEU ####[address] [place], [place] [address] Calcium [Mass/Vol] 8.7 mg/dL Normal 8.4-10.2 [facility] ([place]) Comment on above: Performed By: #### B MP, PRO, A1C, CBC, MG, GFR, ADIFF, ANEU ####[address] [place], [place] [address] Chloride [Moles/Vol] 105 mmol/L Normal 98-107 [facility] ([place]) Comment on above: Performed By: #### B MP, PRO, A1C, CBC, MG, GFR, ADIFF, ANEU ####Di[address] [place], [place] [address] CO2 [Moles/Vol] 26 mmol/L Normal 22-29 [facility] ([place] Comment on above: Performed By: #### B MP, PRO, A1C, CBC, MG, GFR, ADIFF, ANEU ####[address] [place], [place] [address] Creatinine [Mass/Vol] 1.45 mg/dL High 0.70-1.30 [facility] ([place]) Comment on above: Performed By: #### B MP, PRO, A1C, CBC, MG, GFR, ADIFF, ANEU ####[address] [place], [place] [address] Electrolyte Balance 10.0 mEq/L Normal 4.0-15.0 [facility] ([place]) Comment on above: Performed By: #### B MP, PRO, A1C, CBC, MG, GFR, ADIFF, ANEU ####[address] [place], [place] [address] Glucose [Mass/Vol] 98 mg/dL Normal 70-105 [facility] ([place]) Comment on above: Performed By: #### B MP, PRO, A1C, CBC, MG, GFR, ADIFF, ANEU ####[address] [place], [place] [address] Potassium [Moles/Vol] 4.7 mmol/L Normal 3.5-5.1 [facility] ([place]) Comment on above: Performed By: #### B MP, PRO, A1C, CBC, MG, GFR, ADIFF, ANEU ####[address] [place], [place] [address] Sodium [Moles/Vol] 141 mmol/L Normal 136-145 [facility] ([place]) Comment on above: Performed By: #### B MP, PRO, A1C, CBC, MG, GFR, ADIFF, ANEU ####[address] [place], [place] [address] Urea nitrogen [Mass/Vol] 19 mg/dL High 7-18 [facility] [place] Comment on above: Performed By: #### B MP, PRO, A1C, CBC, MG, GFR, ADIFF, ANEU ####[address] [place], [place] [address] CBCon 09-13-2023 Erythrocyte distribution width (RBC) [Ratio] 16.5 % High 11.5-14.5 [facility] [place] Comment on above: Performed By: #### B MP, PRO, A1C, CBC, MG, GFR, ADIFF, ANEU ####[address] [place], [place] [address] Hematocrit (Bld) [Volume fraction] 40.5 % Low 42.0-52.0 [facility] [place] Comment on above: Performed By: #### B MP, PRO, A1C, CBC, MG, GFR, ADIFF, ANEU ####Di[address] [place], [place] [address] Hgb 13.1 G/dL Low 14.0-18.0 [facility] [place] Comment on above: Performed By: #### B MP, PRO, A1C, CBC, MG, GFR, ADIFF, ANEU ####[address] [place], [place] [address] MCH (RBC) [Entitic mass] 31.0 pg Normal 27.0-31.2 [facility] [place] Comment on above: Performed By: #### B MP, PRO, A1C, CBC, MG, GFR, ADIFF, ANEU ####[address] [place], [place] [address] MCHC 32.4 G/dL Normal 31.8-35.4 [facility] [place] Comment on above: Performed By: #### B MP, PRO, A1C, CBC, MG, GFR, ADIFF, ANEU ####[address] [place], [place] [address] MCV (RBC) [Entitic vol] 95.5 fL High 80.0-94.0 [facility] [place] Comment on above: Performed By: #### B MP, PRO, A1C, CBC, MG, GFR, ADIFF, ANEU ####Diogo [address] [place], [place] [address] Platelet 215 10 3/mcL Normal 130-400 [facility] [place] Comment on above: Performed By: #### B MP, PRO, A1C, CBC, MG, GFR, ADIFF, ANEU ####[address] [place], [place] [address] Platelet mean volume (Bld) [Entitic vol] 7.7 fL Normal 7.4-10.4 [facility] [place] Comment on above: Performed By: #### B MP, PRO, A1C, CBC, MG, GFR, ADIFF, ANEU ####[address] [place], [place] [address] RBC 4.25 10 6/mcL Normal 4.04-6.13 [facility] [place] Comment on above: Performed By: #### B MP, PRO, A1C, CBC, MG, GFR, ADIFF, ANEU ####[address] [place], [place] [address] WBC 6.9 10 3/mcL Normal 4.6-10.8 [facility] [place] Comment on above: Performed By: #### B MP, PRO, A1C, CBC, MG, GFR, ADIFF, ANEU ####Diogo [address] [place], [place] [address] LABORATORYOrdered By: SYSTEM SYSTEM on 09-13-2023 Basophil, [...] 09-13-2023 Magnesium [Mass/Vol] 1.7 mg/dL Low 1.8-2.4 [facility] ([place]) Comment on above: Performed By: #### B MP, PRO, A1C, CBC, MG, GFR, ADIFF, ANEU ####[facility] [place], [place] [address] MRSAPCRon 09-13-2023 MRSA (PCR) Not detected Normal Not Detected [facility] [place] Comment on above: Result Comment: Note s 1990 Performed By: #### M RSAPCR ####[address] [address] MRSA PCR Int Normal [facility] [place] Comment on above: Result Comment: MRSA DNA [...] reproducible.See Below Performed By: #### M RSAPCR ####[place] [address] PROon 09-13-2023 PT Coag (PPP) [Time] 22.6 s High 9.0-14.4 [facility] ([place]) Comment on above: Order Comment: order ed secondary to warfarin order Performed By: #### B MP, PRO, A1C, CBC, MG, GFR, ADIFF, ANEU ####[address] [place], [place] [address] PT International Ratio 2.0 Normal [facility] ([place]) Comment on above: Order Comment: order ed secondary to warfarin order Result Comment: [employer] (CHEST, 1992, 102:312S-25S)recommended therapeutic range for oral anticoagulant therapy is:LOW RISK: Prophylaxis of venous thrombosis INR: 2.0-3.0 Treatment of pulmonary embolism 2.0-3.0 Prevention of systemic embolism 2.0-3.0HIGH RISK: Mechanical prosthetic valves 2.5-3.5 Performed By: #### B MP, PRO, A1C, CBC, MG, GFR, ADIFF, ANEU ####[address] [place], [place] [address] UAon 09-13-2023 Color (U) Yellow Normal [facility] [place] Comment on above: Performed By: #### U A, UAMICAO ####[address] [place], [place] [address] Glucose (U) [Mass/Vol] Negative Normal Negative [facility] ([place] Comment on above: Performed By: #### U A, UAMICAO ####[address] [place], [place] [address] Ketones Ql (U) Negative Normal Negative [facility] ([place] Comment on above: Performed By: #### U A, UAMICAO ####[address] [place], [place] [address] UA Appear Clear Normal Clear [facility] ([place] Comment on above: Performed By: #### U A, UAMICAO ####[address] [place], [place] [address] UA Bili Small Abnormal Negative [facility] ([place] Comment on above: Performed By: #### U A, UAMICAO ####[address] [place], [place] [address] UA Blood Trace Abnormal Negative [facility] ([place] Comment on above: Performed By: #### U A, UAMICAO ####[address] [place], [place] [address] UA Leuk Est Negative Normal Negative [facility] [place] Comment on above: Performed By: #### U A, UAMICAO ####[address] [place], [place] [address] UA Nitrite Negative Normal Negative [facility] [place] Comment on above: Performed By: #### U A, UAMICAO ####[address] [place], [place] [address] UA pH 5.5 Normal 5.0 - 8.0 [facility] [place] Comment on above: Performed By: #### U A, UAMICAO ####[address] [place], [place] [address] UA Protein 100 mg/dL Abnormal Negative [facility] [place] Comment on above: Performed By: #### U A, UAMICAO ####[address] [place], [place] [address] UA Spec Grav >=1.030 Abnormal 1.015-1.025 [facility] [place] Comment on above: Performed By: #### U A, UAMICAO ####[address] [place], [place] [address] UA Specimen Type Clean Catch Normal [facility] [place] Comment on above: Performed By: #### U A, UAMICAO ####[address] [place], [place] [address] UA Urobilinogen 1.0 E.U./dL Normal 0.2-1.0 [facility] [place] Comment on above: Performed By: #### U A, UAMICAO ####[address] [place], [place] [address] .Auto DiffOrdered By: SYSTEM SYSTEM on 09-12-2023 Basophil, Absolute 0.1 103/mcL Normal 0.0-0.2 AO Wo rkflow SS Comment on above: Performed By: #### M DW, ANEU, GFR, BMP, ADIFF, CBC ####[address] [place], [place] [address] Basophils/100 WBC (Bld) 1.2 % Normal 0.0-2.5 AO Workflow SS Comment on above: Performed By: #### M DW, ANEU, GFR, BMP, ADIFF, CBC ####[address] [place], [place] [address] Eosinophil, Absolute 0.2 103/mcL Normal 0.0-0.4 AO Workflow SS Comment on above: Performed By: #### M DW, ANEU, GFR, BMP, ADIFF, CBC ####[address] [place], [place] [address] Eosinophils/100 WBC (Bld) 3.0 % Normal 0.0-7.0 AO Workflow SS Comment on above: Performed By: #### M DW, ANEU, GFR, BMP, ADIFF, CBC ####[address] [place], [place] [address] Lymphocyte, Absolute 0.7 103/mcL Low 0.8-3.9 AO Workflow SS Comment on above: Performed By: #### M DW, ANEU, GFR, BMP, ADIFF, CBC ####[address] [place], [place] [address] Lymphocytes/100 WBC (Bld) 9.3 % Low 10.0-50.0 AO Workflow SS Comment on above: Performed By: #### M DW, ANEU, GFR, BMP, ADIFF, CBC ####[address] [place], [place] [address] Monocyte, Absolute 0.4 103/mcL Normal 0.2-1.0 AO Wo rkflow SS Comment on above: Performed By: #### M DW, ANEU, GFR, BMP, ADIFF, CBC ####[address] [place], [place] [address] Monocytes/100 WBC (Bld) 6.1 % Normal 1.7-13.0 AO Workflow SS Comment on above: Performed By: #### M DW, ANEU, GFR, BMP, ADIFF, CBC ####[address] [place], [place] [address] Neutrophils/100 WBC (Bld) 80.4 % High 37.0-80.0 AO Workflow SS Comment on above: Performed By: #### M DW, ANEU, GFR, BMP, ADIFF, CBC ####[address] [place], [place] [address] .GFRon 09-12-2023 GFR 56 ml/min/1.73sqm Normal [facility] ([place]) Comment on above: Result Comment: GFR Population [...] DW, ANEU, GFR, BMP, ADIFF, CBC ####[address] [place], [place] [address] GFR Non- 47 ml/min/1.73sqm Normal [facility] ([place]) Comment on above: Result Comment: GFR Population [...] ANEU, GFR, BMP, ADIFF, CBC ####[address] [place], [place] [address] .MDWon 09-12-2023 Monocyte Distribution Width 17.87 Normal 0.00-20.00 [facility] ([place] Comment on above: Result Comment: For ED adult patients suspected of sepsis, MDW<=20.0 does not rule out sepsis or risk of sepsis Performed By: #### M DW, ANEU, GFR, BMP, ADIFF, CBC ####[address] [place], [place] [address] .NEUABSOrdered By: SYSTEM SY STEM on 09-12-2023 Neutrophil, Absolute 5.7 103/mcL Normal 2.9-6.2 AO Workflow SS Comment on above: Performed By: #### M DW, ANEU, GFR, BMP, ADIFF, CBC ####[address] [place], [place] [address] BMPon 09-12-2023 BUN/Creatinine Ratio 12 ratio Normal 7-27 [facility] ([place]) Comment on above: Performed By: #### M DW, ANEU, GFR, BMP, ADIFF, CBC ####[address] [place], [place] [address] Calcium [Mass/Vol] 8.8 mg/dL Normal 8.4-10.2 [facility] ([place]) Comment on above: Performed By: #### M DW, ANEU, GFR, BMP, ADIFF, CBC ####[address] [place], [place] [address] Chloride [Moles/Vol] 104 mmol/L Normal 98-107 [facility] ([place]) Comment on above: Performed By: #### M DW, ANEU, GFR, BMP, ADIFF, CBC ####[address] [place], [place] [address] CO2 [Moles/Vol] 32 mmol/L High 22-29 [facility] ([place] Comment on above: Performed By: #### M DW, ANEU, GFR, BMP, ADIFF, CBC ####[address] [place], [place] [address] Creatinine [Mass/Vol] 1.62 mg/dL High 0.70-1.30 [facility] ([place]) Comment on above: Performed By: #### M DW, ANEU, GFR, BMP, ADIFF, CBC ####[address] [place], [place] [address] Electrolyte Balance 7.0 mEq/L Normal 4.0-15.0 [facility] ([place]) Comment on above: Performed By: #### M DW, ANEU, GFR, BMP, ADIFF, CBC ####[address] [place], [place] [address] Glucose [Mass/Vol] 159 mg/dL High 70-105 [facility] ([place]) Comment on above: Performed By: #### M DW, ANEU, GFR, BMP, ADIFF, CBC ####[address] [place], [place] [address] Potassium [Moles/Vol] 4.1 mmol/L Normal 3.5-5.1 [facility] ([place]) Comment on above: Performed By: #### M DW, ANEU, GFR, BMP, ADIFF, CBC ####[address] [place], [place] [address] Sodium [Moles/Vol] 143 mmol/L Normal 136-145 [facility] ([place]) Comment on above: Performed By: #### M DW, ANEU, GFR, BMP, ADIFF, CBC ####[address] [place], [place] [address] Urea nitrogen [Mass/Vol] 20 mg/dL High 7-18 [facility] [place] Comment on above: Performed By: #### M DW, ANEU, GFR, BMP, ADIFF, CBC ####[address] [place], [place] [address] CBCOrdered By: SYSTEM SYSTEM on 09-12-2023 Erythrocyte distribution width (RBC) [Ratio] 16.2 % High 11.5-14.5 AO Workflow SS Comment on above: Performed By: #### M DW, ANEU, GFR, BMP, ADIFF, CBC ####[address] [place], [place] [address] Hematocrit (Bld) [Volume fraction] 40.9 % Low 42.0-52.0 AO Workflow SS Comment on above: Performed By: #### M DW, ANEU, GFR, BMP, ADIFF, CBC ####[address] [place], [place] [address] MCH (RBC) [Entitic mass] 31.4 pg High 27.0-31.2 AO Workflow SS Comment on above: Performed By: #### M DW, ANEU, GFR, BMP, ADIFF, CBC ####[address] [place], [place] [address] MCHC 33.0 G/dL Normal 31.8-35.4 AO Workflow SS Comment on above: Performed By: #### M DW, ANEU, GFR, BMP, ADIFF, CBC ####[address] [place] [address] MCV (RBC) [Entitic vol] 95.2 fL High 80.0-94.0 AO Workflow SS Comment on above: Performed By: #### M DW, ANEU, GFR, BMP, ADIFF, CBC ####[address] [place], [place] [address] Platelet mean volume (Bld) [Entitic vol] 7.3 fL Low 7.4-10.4 AO Workflow SS Comment on above: Performed By: #### M DW, ANEU, GFR, BMP, ADIFF, CBC ####[address] [place], [place] [address] CBCon 09-12-2023 Hgb 13.5 G/dL Low 14.0-18.0 [facility] ([place] Comment on above: Performed By: #### M DW, ANEU, GFR, BMP, ADIFF, CBC ####[address] [place], [place] [address] Platelet 240 10 3/mcL Normal 130-400 [facility] ([place] Comment on above: Performed By: #### M DW, ANEU, GFR, BMP, ADIFF, CBC ####[address] [place], [place] [address] RBC 4.30 10 6/mcL Normal 4.04-6.13 [facility] ([place] Comment on above: Performed By: #### M DW, ANEU, GFR, BMP, ADIFF, CBC ####[address] [place], [place] [address] WBC 7.1 10 3/mcL Normal 4.6-10.8 [facility] ([place] Comment on above: Performed By: #### M DW, ANEU, GFR, BMP, ADIFF, CBC ####[address] [place], [place] [address] CT ABD/PELVIS W/ IV CONTRAST ONLYon 09-12-2023 CT ABD/PELVIS W/ IV CONTRAST ONLY Normal [facility] ([place]) LABORATORYOrdered By: Ta Quintero on 09-12-2023 MRSA [...] Lactic Acid Lvl 1.4 mmol/L Normal 0.4-2.0 [facility] [place] Comment on above: Performed By: #### L AC ####[place] [address] [place], [place] [address] No Panel Informationon 09-11 Microscopic examination of blood, culture Blood Culture: No Growth at 5 [facility] PROon 09-12-2023 PT Coag (PPP) [Time] 22.7 s High 9.0-14.4 [facility] ([place]) Comment on above: Performed By: #### P RO ####[facility] [place], [place] [address] PT International Ratio 2.0 Normal [facility] ([place]) Comment on above: Result Comment: [employer] (CHEST, 1992, 102:312S-25S)recommended therapeutic range for oral anticoagulant therapy is:LOW RISK: Prophylaxis of venous thrombosis INR: 2.0-3.0 Treatment of pulmonary embolism 2.0-3.0 Prevention of systemic embolism 2.0-3.0HIGH RISK: Mechanical prosthetic valves 2.5-3.5 Performed By: #### P RO ####[address] [place], [place] [address] US SCROTUM CONTENTSon 2023 US SCROTUM CONTENTS Normal [facility] ([place]) CURon 09-02-2023 CUR Normal [facility] ([place]) .Urinalysis Microscopic (AO) on 08-31-2023 UA Bacteria Trace Abnormal [facility] ([place] Comment on above: Performed By: #### U A, UAMICAO ####[place] [address] [place], [place] [address] UA RBC LOADED Abnormal None Seen [facility] ([place]) Comment on above: Performed By: #### U A, UAMICAO ####[address] [place], [place] [address] UA Squam Epithelial 0-5 Abnormal None Seen [facility] ([place]) Comment on above: Performed By: #### U A, UAMICAO ####[address] [place], [place] [address] UA WBC None Seen Normal None Seen [facility] ([place]) Comment on above: Performed By: #### U A, UAMICAO ####[address] [place] [address] APTTon 08-31-2023 aPTT Coag (Bld) [Time] 33.2 s Normal 25.0-35.0 [facility] ([place]) Comment on above: Result Comment: For Heparin anticoagulation therapy, the recommendedtherapeutic range is: 45.4-75.9 seconds. Patients on heparin therapy may have an extreme result. Performed By: #### P RO, APTT ####[address] [place], [place] [address] LABORATORYOrdered By: Thee Black on 08-31-2023 Appearance [...] Comment on above: Interpretive Data: Cindy briggs [employer] (CHEST, 1991, 102:312S-25S) [...] Coag (PPP) [Time] 17.3 s High 9.0-14.4 [facility] ([place]) Comment on above: Performed By: #### P RO, APTT ####[address] [place] [id number] PT International Ratio 1.5 Normal [facility] ([place]) Comment on above: Result Comment: [employer] (CHEST, 1992, 102:312S-25S)recommended therapeutic range for oral anticoagulant therapy is:LOW RISK: Prophylaxis of venous thrombosis INR: 2.0-3.0 Treatment of pulmonary embolism 2.0-3.0 Prevention of systemic embolism 2.0-3.0HIGH RISK: Mechanical prosthetic valves 2.5-3.5 Performed By: #### P RO, APTT ####[address] [place] [address] UAon 08-31-2023 Color (U) Red Abnormal [facility] ([place] Comment on above: Performed By: #### U A, UAMICAO ####[address] [place] [address] Glucose (U) [Mass/Vol] Negative Normal Negative [facility] ([place]) Comment on above: Performed By: #### U A, UAMICAO ####[address] [place] [address] Ketones Ql (U) Negative Normal Negative [facility] ([place] Comment on above: Performed By: #### U A, UAMICAO ####[address] [place] [address] UA Appear Cloudy Abnormal Clear [facility] ([place] Comment on above: Performed By: #### U A, UAMICAO ####[address] [place] [address] UA Bili Small Abnormal Negative [facility] ([place] Comment on above: Performed By: #### U A, UAMICAO ####[address] [place] [phone] UA Blood Large Abnormal Negative [facility] ([place] Comment on above: Performed By: #### U A, UAMICAO ####[address] [place], [place] [address] UA Leuk Est Negative Normal Negative [facility] ([place] Comment on above: Performed By: #### U A, UAMICAO ####[address] [place], [place] [address] UA Nitrite Positive Abnormal Negative [facility] ([place] Comment on above: Performed By: #### U A UAMICAO ####[address] [place] [id number] UA pH 6.0 Normal 5.0 - 8.0 [facility] [place] Comment on above: Performed By: #### U A, UAMICAO ####[address] [place] [address] UA Protein >=300 Abnormal Negative [facility] ([place] Comment on above: Performed By: #### U A UAMICAO ####[address] [place] [address] UA Spec Grav >=1.030 Abnormal 1.015-1.025 [facility] [place] Comment on above: Performed By: #### U A UAMICAO ####[address] [place] [address] UA Specimen Type Clean Catch Normal [facility] ([place] Comment on above: Performed By: #### U A UAMICAO ####[address] [place] [address] UA Urobilinogen >=8.0 Abnormal 0.2-1.0 [facility] [place] Comment on above: Performed By: #### U A, UAMICAO ####[address] [place] [id number] .Auto Diffon 08-24-2023 Basophil, Absolute 0.1 10 3/mcL Normal 0.0-0.3 [facility] ([place]) Comment on above: Performed By: #### C BC, ANEU, GFR, LD, ADIFF, CMP ####[address] [address] Basophils/100 WBC (Bld) 0.9 % Normal 0.0-2.5 [facility] ([place] Comment on above: Performed By: #### C BC, ANEU, GFR, LD, ADIFF, CMP ####[address] [address] Eosinophil, Absolute 0.2 10 3/mcL Normal 0.0-0.7 [facility] ([place]) Comment on above: Performed By: #### C BC, ANEU, GFR, LD, ADIFF, CMP ####[address] [address] Eosinophils/100 WBC (Bld) 3.9 % Normal 0.0-6.0 [facility] ([place]) Comment on above: Performed By: #### C BC, ANEU, GFR, LD, ADIFF, CMP ####[address] [address] Lymphocyte, Absolute 0.7 10 3/mcL Low 0.9-4.3 [facility] ([place]) Comment on above: Performed By: #### C BC, ANEU, GFR, LD, ADIFF, CMP ####[address] [address] Lymphocytes/100 WBC (Bld) 12.0 % Low 20.0-40.0 [facility] ([place]) Comment on above: Performed By: #### C BC, ANEU, GFR, LD, ADIFF, CMP ####[address] [address] Monocyte, Absolute 0.6 10 3/mcL Normal 0.1-1.4 [facility] ([place]) Comment on above: Performed By: #### C BC, ANEU, GFR, LD, ADIFF, CMP ####[address] [address] Monocytes/100 WBC (Bld) 10.1 % Normal 2.0-13.0 [facility] ([place]) Comment on above: Performed By: #### C BC, ANEU, GFR, LD, ADIFF, CMP ####[address] [address] Neutrophils/100 WBC (Bld) 73.1 % Normal 50.0-75.0 [facility] ([place]) Comment on above: Performed By: #### C BC, ANEU, GFR, LD, ADIFF, CMP ####[address] [address] .GFRon 08-24-2023 GFR >60 Normal [facility] ([place]) Comment on above: Result Comment: GFR Population [...] C BC, ANEU, GFR, LD, ADIFF, CMP ####[address] [address] GFR Non- >60 Normal [facility] ([place] Comment on above: Result Comment: GFR Population [...] C BC, ANEU, GFR, LD, ADIFF, CMP ####[address] [address] .NEUABSon 08-24-2023 Neutrophil, Absolute 4.4 10 3/mcL Normal 2.3-8.1 [facility] ([place]) Comment on above: Performed By: #### C BC, ANEU, GFR, LD, ADIFF, CMP ####[address] [address] CBCon 08-24-2023 Erythrocyte distribution width (RBC) [Ratio] 16.6 % High 11.5-15.5 [facility] [place] Comment on above: Performed By: #### C BC, ANEU, GFR, LD, ADIFF, CMP ####[place] [address] Hematocrit (Bld) [Volume fraction] 42.2 % Normal 40.0-52.0 [facility] ([place] Comment on above: Performed By: #### C BC, ANEU, GFR, LD, ADIFF, CMP ####[place] [address] Hgb 14.0 G/dL Normal 13.0-17.5 [facility] [place] Comment on above: Performed By: #### C BC, ANEU, GFR, LD, ADIFF, CMP ####[place] [address] MCH (RBC) [Entitic mass] 31.6 pg Normal 27.0-33.0 [facility] ([place] Comment on above: Performed By: #### C BC, ANEU, GFR, LD, ADIFF, CMP ####[place] [address] MCHC 33.2 G/dL Normal 32.0-36.0 [facility] ([place] Comment on above: Performed By: #### C BC, ANEU, GFR, LD, ADIFF, CMP ####[place] [address] MCV (RBC) [Entitic vol] 95.3 fL Normal 81.0-100.0 [facility] ([place] Comment on above: Performed By: #### C BC, ANEU, GFR, LD, ADIFF, CMP ####[place] [address] Platelet 221 10 3/mcL Normal 150-450 [facility] ([place] Comment on above: Performed By: #### C BC, ANEU, GFR, LD, ADIFF, CMP ####[place] [address] Platelet mean volume (Bld) [Entitic vol] 7.3 fL Normal 6.4-10.5 [facility] ([place] Comment on above: Performed By: #### C BC, ANEU, GFR, LD, ADIFF, CMP ####[address] [address] RBC 4.43 10 6/mcL Low 4.50-6.00 [facility] ([place] Comment on above: Performed By: #### C BC, ANEU, GFR, LD, ADIFF, CMP ####[place] [address] WBC 6.0 10 3/mcL Normal 4.5-10.8 [facility] ([place] Comment on above: Performed By: #### C BC, ANEU, GFR, LD, ADIFF, CMP ####[place] [address] CMPon 08-24-2023 Albumin Level 3.3 G/dL Normal 3.2-4.8 [facility] ([place] Comment on above: Performed By: #### C BC, ANEU, GFR, LD, ADIFF, CMP ####[place] [address] Albumin/Globulin [Mass ratio] 1.0 {ratio} Normal 0.9-1.6 [facility] ([place] Comment on above: Performed By: #### C BC, ANEU, GFR, LD, ADIFF, CMP ####[place] [address] ALP [Catalytic activity/Vol] 180 U/L High 38-126 [facility] [place] Comment on above: Performed By: #### C BC, ANEU, GFR, LD, ADIFF, CMP ####[address] [address] ALT [Catalytic activity/Vol] 16 U/L Normal 12-55 [facility] ([place] Comment on above: Performed By: #### C BC, ANEU, GFR, LD, ADIFF, CMP ####[place] [address] AST [Catalytic activity/Vol] 21 U/L Normal 8-34 [facility] ([place] Comment on above: Performed By: #### C BC, ANEU, GFR, LD, ADIFF, CMP ####[address] [address] Bili Total 1.30 mg/dL High 0.20-1.20 [facility] ([place] Comment on above: Result Comment: Use of this assay is not recommended for patients undergoing treatment with eltrombopag due to the potential for falsely elevated results. Performed By: #### C BC, ANEU, GFR, LD, ADIFF, CMP ####[address] [address] BUN/Creatinine Ratio 17.1 ratio Normal 10.0-22.0 [facility] ([place]) Comment on above: Performed By: #### C BC, ANEU, GFR, LD, ADIFF, CMP ####[address] [address] Calcium [Mass/Vol] 8.5 mg/dL Low 8.7-10.4 [facility] ([place]) Comment on above: Performed By: #### C BC, ANEU, GFR, LD, ADIFF, CMP ####[address] [address] Chloride [Moles/Vol] 106 mmol/L Normal 98-110 [facility] ([place]) Comment on above: Performed By: #### C BC, ANEU, GFR, LD, ADIFF, CMP ####[address] [address] CO2 [Moles/Vol] 28 mmol/L Normal 22-32 [facility] ([place] Comment on above: Performed By: #### C BC, ANEU, GFR, LD, ADIFF, CMP ####[address] [address] Creatinine [Mass/Vol] 1.23 mg/dL Normal 0.60-1.40 [facility] ([place]) Comment on above: Performed By: #### C BC, ANEU, GFR, LD, ADIFF, CMP ####[address] [address] Electrolyte Balance 6.0 mEq/L Normal 4.0-15.0 [facility] ([place]) Comment on above: Performed By: #### C BC, ANEU, GFR, LD, ADIFF, CMP ####[address] [address] Globulin 3.3 G/dL Normal 1.5-3.8 [facility] ([place] Comment on above: Performed By: #### C BC, ANEU, GFR, LD, ADIFF, CMP ####[address] [address] Glucose [Mass/Vol] 139 mg/dL High 70-110 [facility] ([place]) Comment on above: Performed By: #### C BC, ANEU, GFR, LD, ADIFF, CMP ####[address] [address] Potassium [Moles/Vol] 4.4 mmol/L Normal 3.5-5.0 [facility] ([place]) Comment on above: Performed By: #### C BC, ANEU, GFR, LD, ADIFF, CMP ####[place] [address] Sodium [Moles/Vol] 140 mmol/L Normal 136-145 [facility] ([place]) Comment on above: Performed By: #### C BC, ANEU, GFR, LD, ADIFF, CMP ####[place] [address] Total Protein 6.6 G/dL Normal 5.7-8.2 [facility] ([place] Comment on above: Result Comment: No te - New Reference Range in effect 19 Performed By: #### C BC, ANEU, GFR, LD, ADIFF, CMP ####[address] [address] Urea nitrogen [Mass/Vol] 21.0 mg/dL Normal 8.0-22.0 [facility] ([place] Comment on above: Performed By: #### C BC, ANEU, GFR, LD, ADIFF, CMP ####[address] [address] LABORATORYOrdered By: SYSTEM SYSTEM on 07-11-2024 Albumin [...] LDHon 08-24-2023 LDH 173 U/L Normal 120-246 [facility] ([place] Comment on above: Performed By: #### C BC, ANEU, GFR, LD, ADIFF, CMP ####[address] [address] .Auto Diffon 07-27-2023 Basophil, Absolute 0.1 10 3/mcL Normal 0.0-0.3 [facility] ([place]) Comment on above: Performed By: #### C MP, ADIFF, ANEU, LD, FT4, CBC, JUANCARLOS, TSH, GFR, FT3 ####[address] [address] Basophils/100 WBC (Bld) 0.9 % Normal 0.0-2.5 [facility] ([place] Comment on above: Performed By: #### C MP, ADIFF, ANEU, LD, FT4, CBC, JUANCARLOS, TSH, GFR, FT3 ####[place] [address] Eosinophil, Absolute 0.4 10 3/mcL Normal 0.0-0.7 [facility] ([place]) Comment on above: Performed By: #### C MP, ADIFF, ANEU, LD, FT4, CBC, JUANCARLOS, TSH, GFR, FT3 ####[address] [address] Eosinophils/100 WBC (Bld) 5.4 % Normal 0.0-6.0 [facility] ([place] Comment on above: Performed By: #### C MP, ADIFF, ANEU, LD, FT4, CBC, JUANCARLOS, TSH, GFR, FT3 ####[address] [address] Lymphocyte, Absolute 1.0 10 3/mcL Normal 0.9-4.3 [facility] ([place]) Comment on above: Performed By: #### C MP, ADIFF, ANEU, LD, FT4, CBC, JUANCARLOS, TSH, GFR, FT3 ####[address] [address] Lymphocytes/100 WBC (Bld) 14.9 % Low 20.0-40.0 [facility] ([place] Comment on above: Performed By: #### C MP, ADIFF, ANEU, LD, FT4, CBC, JUANCARLOS, TSH, GFR, FT3 ####[address] [address] Monocyte, Absolute 0.7 10 3/mcL Normal 0.1-1.4 [facility] ([place]) Comment on above: Performed By: #### C MP, ADIFF, ANEU, LD, FT4, CBC, JUANCARLOS, TSH, GFR, FT3 ####[address] [address] Monocytes/100 WBC (Bld) 10.4 % Normal 2.0-13.0 [facility] ([place] Comment on above: Performed By: #### C MP, ADIFF, ANEU, LD, FT4, CBC, JUANCARLOS, TSH, GFR, FT3 ####[address] [address] Neutrophils/100 WBC (Bld) 68.4 % Normal 50.0-75.0 [facility] [place] Comment on above: Performed By: #### C MP, ADIFF, ANEU, LD, FT4, CBC, JUANCARLOS, TSH, GFR, FT3 ####[address] [address] .GFRon 07-27-2023 GFR >60 Normal [facility] ([place]) Comment on above: Result Comment: GFR Population [...] LD, FT4, CBC, JUANCARLOS, TSH, GFR, FT3 ####[address] [address] GFR Non- >60 Normal [facility] [place] Comment on above: Result Comment: GFR Population [...] LD, FT4, CBC, JUANCARLOS, TSH, GFR, FT3 ####[place] [address] .NEUABSon 07-27-2023 Neutrophil, Absolute 4.7 10 3/mcL Normal 2.3-8.1 [facility] ([place]) Comment on above: Performed By: #### C MP, ADIFF, ANEU, LD, FT4, CBC, JUANCARLOS, TSH, GFR, FT3 ####[place] [address] CBCon 07-27-2023 Erythrocyte distribution width (RBC) [Ratio] 16.7 % High 11.5-15.5 [facility] [place] Comment on above: Performed By: #### C MP, ADIFF, ANEU, LD, FT4, CBC, JUANCARLOS, TSH, GFR, FT3 ####[place] [address] Hematocrit (Bld) [Volume fraction] 42.9 % Normal 40.0-52.0 [facility] [place] Comment on above: Performed By: #### C MP, ADIFF, ANEU, LD, FT4, CBC, JUANCARLOS, TSH, GFR, FT3 ####[place] [address] Hgb 14.3 G/dL Normal 13.0-17.5 [facility] ([place] Comment on above: Performed By: #### C MP, ADIFF, ANEU, LD, FT4, CBC, JUANCARLOS, TSH, GFR, FT3 ####[place] [address] MCH (RBC) [Entitic mass] 31.6 pg Normal 27.0-33.0 [facility] [place] Comment on above: Performed By: #### C MP, ADIFF, ANEU, LD, FT4, CBC, JUANCARLOS, TSH, GFR, FT3 ####[place] [address] MCHC 33.3 G/dL Normal 32.0-36.0 [facility] ([place] Comment on above: Performed By: #### C MP, ADIFF, ANEU, LD, FT4, CBC, JUANCARLOS, TSH, GFR, FT3 ####[place] [address] MCV (RBC) [Entitic vol] 94.8 fL Normal 81.0-100.0 [facility] Comment on above: Performed By: #### C MP, ADIFF, ANEU, LD, FT4, CBC, JUANCARLOS, TSH, GFR, FT3 ####[place] [address] Platelet 229 10 3/mcL Normal 150-450 [facility] Comment on above: Performed By: #### C MP, ADIFF, ANEU, LD, FT4, CBC, JUANCARLOS, TSH, GFR, FT3 ####[place] [address] Platelet mean volume (Bld) [Entitic vol] 7.3 fL Normal 6.4-10.5 [facility] Comment on above: Performed By: #### C MP, ADIFF, ANEU, LD, FT4, CBC, JUANCARLOS, TSH, GFR, FT3 ####[place] [address] RBC 4.52 10 6/mcL Normal 4.50-6.00 [facility] [place] Comment on above: Performed By: #### C MP, ADIFF, ANEU, LD, FT4, CBC, JUANCARLOS, TSH, GFR, FT3 ####[address] [address] WBC 6.9 10 3/mcL Normal 4.5-10.8 [facility] [place] Comment on above: Performed By: #### C MP, ADIFF, ANEU, LD, FT4, CBC, JUANCARLOS, TSH, GFR, FT3 ####[address] [address] CMPon 07-27-2023 Albumin Level 3.3 G/dL Normal 3.2-4.8 [facility] [place] Comment on above: Performed By: #### C MP, ADIFF, ANEU, LD, FT4, CBC, JUANCARLOS, TSH, GFR, FT3 ####[place] [id number] Albumin/Globulin [Mass ratio] 0.9 {ratio} Normal 0.9-1.6 [facility] [place] Comment on above: Performed By: #### C MP, ADIFF, ANEU, LD, FT4, CBC, JUANCARLOS, TSH, GFR, FT3 ####[place] [address] ALP [Catalytic activity/Vol] 200 U/L High 38-126 [facility] [place] Comment on above: Performed By: #### C MP, ADIFF, ANEU, LD, FT4, CBC, JUANCARLOS, TSH, GFR, FT3 ####[address] [address] ALT [Catalytic activity/Vol] 16 U/L Normal 12-55 [facility] [place] Comment on above: Performed By: #### C MP, ADIFF, ANEU, LD, FT4, CBC, JUANCARLOS, TSH, GFR, FT3 ####[address] [address] AST [Catalytic activity/Vol] 18 U/L Normal 8-34 [facility] [place] Comment on above: Performed By: #### C MP, ADIFF, ANEU, LD, FT4, CBC, JUANCARLOS, TSH, GFR, FT3 ####[place] [id number] Bili Total 0.90 mg/dL Normal 0.20-1.20 [facility] [place] Comment on above: Result Comment: Use of this assay is not recommended for patients undergoing treatment with eltrombopag due to the potential for falsely elevated results. Performed By: #### C MP, ADIFF, ANEU, LD, FT4, CBC, JUANCARLOS, TSH, GFR, FT3 ####[place] [address] BUN/Creatinine Ratio 9.7 ratio Low 10.0-22.0 [facility] ([place]) Comment on above: Performed By: #### C MP, ADIFF, ANEU, LD, FT4, CBC, JUANCARLOS, TSH, GFR, FT3 ####[place] [address] Calcium [Mass/Vol] 8.6 mg/dL Low 8.7-10.4 [facility] ([place]) Comment on above: Performed By: #### C MP, ADIFF, ANEU, LD, FT4, CBC, JUANCARLOS, TSH, GFR, FT3 ####[place] [address] Chloride [Moles/Vol] 105 mmol/L Normal 98-110 [facility] ([place]) Comment on above: Performed By: #### C MP, ADIFF, ANEU, LD, FT4, CBC, JUANCARLOS, TSH, GFR, FT3 ####[place] [address] CO2 [Moles/Vol] 30 mmol/L Normal 22-32 [facility] [place] Comment on above: Performed By: #### C MP, ADIFF, ANEU, LD, FT4, CBC, JUANCARLOS, TSH, GFR, FT3 ####[place] [address] Creatinine [Mass/Vol] 1.24 mg/dL Normal 0.60-1.40 [facility] ([place]) Comment on above: Performed By: #### C MP, ADIFF, ANEU, LD, FT4, CBC, JUANCARLOS, TSH, GFR, FT3 ####[place] [address] Electrolyte Balance 5.0 mEq/L Normal 4.0-15.0 [facility] ([place]) Comment on above: Performed By: #### C MP, ADIFF, ANEU, LD, FT4, CBC, JUANCARLOS, TSH, GFR, FT3 ####[address] [address] Globulin 3.7 G/dL Normal 1.5-3.8 [facility] [place] Comment on above: Performed By: #### C MP, ADIFF, ANEU, LD, FT4, CBC, JUANCARLOS, TSH, GFR, FT3 ####[address] [address] Glucose [Mass/Vol] 108 mg/dL Normal 70-110 [facility] ([place]) Comment on above: Performed By: #### C MP, ADIFF, ANEU, LD, FT4, CBC, JUANCARLOS, TSH, GFR, FT3 ####[address] [address] Potassium [Moles/Vol] 4.3 mmol/L Normal 3.5-5.0 [facility] ([place]) Comment on above: Performed By: #### C MP, ADIFF, ANEU, LD, FT4, CBC, JUANCARLOS, TSH, GFR, FT3 ####[address] [address] Sodium [Moles/Vol] 140 mmol/L Normal 136-145 [facility] ([place]) Comment on above: Performed By: #### C MP, ADIFF, ANEU, LD, FT4, CBC, JUANCARLOS, TSH, GFR, FT3 ####[address] [address] Total Protein 7.0 G/dL Normal 5.7-8.2 [facility] [place] Comment on above: Result Comment: No te - New Reference Range in effect 19 Performed By: #### C MP, ADIFF, ANEU, LD, FT4, CBC, JUANCARLOS, TSH, GFR, FT3 ####[address] [address] Urea nitrogen [Mass/Vol] 12.0 mg/dL Normal 8.0-22.0 [facility] [place] Comment on above: Performed By: #### C MP, ADIFF, ANEU, LD, FT4, CBC, JUANCARLOS, TSH, GFR, FT3 ####[place] [address] CORTon 07-27-2023 Cortisol Level 19.1 mcg/dL Normal [facility] ([place] Comment on above: Result Comment: Juancarlos isol AM Reference Range 6.5-26.0 mcg/dLCortisol PM Reference Range 3.5-15.0 mcg/dL Performed By: #### C MP, ADIFF, ANEU, LD, FT4, CBC, JUANCARLOS, TSH, GFR, FT3 ####[place] [address] FT3on 07-27-2023 Free T3 [Mass/Vol] 2.85 pg/mL Normal 2.30-4.20 [facility] ([place]) Comment on above: Performed By: #### C MP, ADIFF, ANEU, LD, FT4, CBC, JUANCARLOS, TSH, GFR, FT3 ####[place] [address] FT4on 07-27-2023 Free T4 [Mass/Vol] 1.15 ng/dL Normal 0.89-1.76 [facility] ([place]) Comment on above: Result Comment: No te - New Reference Range in effect 19 Performed By: #### C MP, ADIFF, ANEU, LD, FT4, CBC, JUANCARLOS, TSH, GFR, FT3 ####[place] [address] LABORATORYOrdered By: SYSTEM SYSTEM on 07-27-2023 Albumin [...] (S/P/Bld) [Vol rate/Area] ml/min/1.73sqm Invalid Interpretation Code [facility] Comment on above: Interpretive Data: GFR [...] LDHon 07-27-2023 LDH 197 U/L Normal 120-246 [facility] [place] Comment on above: Performed By: #### C MP, ADIFF, ANEU, LD, FT4, CBC, JUANCARLOS, TSH, GFR, FT3 ####[address] [address] TSHon 07-27-2023 TSH 7.227 mIU/mL High 0.550-4.780 [facility] [place] Comment on above: Result Comment: No te - New Reference Range in effect 19 Performed By: #### C MP, ADIFF, ANEU, LD, FT4, CBC, JUANCARLOS, TSH, GFR, FT3 ####[place] [address] CT ABDOMEN/PELVIS W/CONTRAST on 07-20-2023 CT ABDOMEN/PELVIS W/CONTRAST Normal [facility] [place] CT THORAX W/ CONTRASTon CT THORAX W/ CONTRAST Normal [facility] ([place]) .Auto Diffon 02-16-2023 Basophil, Absolute 0.1 10 3/mcL Normal 0.0-0.3 [facility] ([place]) Comment on above: Performed By: #### A DIFF, GFR, CBC, FT3, ANEU, LD, FT4, TSH, CMP, JUANCARLOS ####[address] [address] Basophils/100 WBC (Bld) 1.0 % Normal 0.0-2.5 [facility] [place] Comment on above: Performed By: #### A DIFF, GFR, CBC, FT3, ANEU, LD, FT4, TSH, CMP, JUANCARLOS ####[address] [address] Eosinophil, Absolute 0.3 10 3/mcL Normal 0.0-0.7 [facility] ([place]) Comment on above: Performed By: #### A DIFF, GFR, CBC, FT3, ANEU, LD, FT4, TSH, CMP, JUANCARLOS ####[address] [address] Eosinophils/100 WBC (Bld) 3.2 % Normal 0.0-6.0 [facility] [place] Comment on above: Performed By: #### A DIFF, GFR, CBC, FT3, ANEU, LD, FT4, TSH, CMP, JUANCARLOS ####[address] [address] Lymphocyte, Absolute 1.1 10 3/mcL Normal 0.9-4.3 [facility] ([place]) Comment on above: Performed By: #### A DIFF, GFR, CBC, FT3, ANEU, LD, FT4, TSH, CMP, JUANCARLOS ####[address] [address] Lymphocytes/100 WBC (Bld) 12.6 % Low 20.0-40.0 [facility] [place] Comment on above: Performed By: #### A DIFF, GFR, CBC, FT3, ANEU, LD, FT4, TSH, CMP, JUANCARLOS ####[address] [address] Monocyte, Absolute 0.6 10 3/mcL Normal 0.1-1.4 [facility] ([place]) Comment on above: Performed By: #### A DIFF, GFR, CBC, FT3, ANEU, LD, FT4, TSH, CMP, JUANCARLOS ####[address] [address] Monocytes/100 WBC (Bld) 6.9 % Normal 2.0-13.0 [facility] [place] Comment on above: Performed By: #### A DIFF, GFR, CBC, FT3, ANEU, LD, FT4, TSH, CMP, JUANCARLOS ####[address] [address] Neutrophils/100 WBC (Bld) 76.3 % High 50.0-75.0 [facility] [place] Comment on above: Performed By: #### A DIFF, GFR, CBC, FT3, ANEU, LD, FT4, TSH, CMP, JUANCARLOS ####[address] [address] .GFRon 02-16-2023 GFR >60 Normal [facility] ([place]) Comment on above: Result Comment: GFR Population [...] FT3, ANEU, LD, FT4, TSH, CMP, JUANCARLOS ####[address] [address] GFR Non- 56 ml/min/1.73sqm Normal [facility] ([place] Comment on above: Result Comment: GFR Population [...] FT3, ANEU, LD, FT4, TSH, CMP, JUANCARLOS ####[address] [address] .NEUABSon 02-16-2023 Neutrophil, Absolute 6.4 10 3/mcL Normal 2.3-8.1 [facility] ([place]) Comment on above: Performed By: #### A DIFF, GFR, CBC, FT3, ANEU, LD, FT4, TSH, CMP, JUANCARLOS ####[place] [address] CBCon 02-16-2023 Erythrocyte distribution width (RBC) [Ratio] 21.0 % High 11.5-15.5 [facility] [place] Comment on above: Performed By: #### A DIFF, GFR, CBC, FT3, ANEU, LD, FT4, TSH, CMP, JUANCARLOS ####[place] [address] Hematocrit (Bld) [Volume fraction] 42.3 % Normal 40.0-52.0 [facility] [place] Comment on above: Performed By: #### A DIFF, GFR, CBC, FT3, ANEU, LD, FT4, TSH, CMP, JUANCARLOS ####[place] [address] Hgb 13.6 G/dL Normal 13.0-17.5 [facility] [place] Comment on above: Performed By: #### A DIFF, GFR, CBC, FT3, ANEU, LD, FT4, TSH, CMP, JUANCARLOS ####[place] [address] MCH (RBC) [Entitic mass] 28.7 pg Normal 27.0-33.0 [facility] [place] Comment on above: Performed By: #### A DIFF, GFR, CBC, FT3, ANEU, LD, FT4, TSH, CMP, JUANCARLOS ####[place] [address] MCHC 32.2 G/dL Normal 32.0-36.0 [facility] [place] Comment on above: Performed By: #### A DIFF, GFR, CBC, FT3, ANEU, LD, FT4, TSH, CMP, JUANCARLOS ####[place] [address] MCV (RBC) [Entitic vol] 89.3 fL Normal 81.0-100.0 [facility] [place] Comment on above: Performed By: #### A DIFF, GFR, CBC, FT3, ANEU, LD, FT4, TSH, CMP, JUANCARLOS ####[place] [address] Platelet 237 10 3/mcL Normal 150-450 [facility] [place] Comment on above: Performed By: #### A DIFF, GFR, CBC, FT3, ANEU, LD, FT4, TSH, CMP, JUANCARLOS ####[place] [address] Platelet mean volume (Bld) [Entitic vol] 7.8 fL Normal 6.4-10.5 [facility] [place] Comment on above: Performed By: #### A DIFF, GFR, CBC, FT3, ANEU, LD, FT4, TSH, CMP, JUANCARLOS ####[place] [id number] RBC 4.74 10 6/mcL Normal 4.50-6.00 [facility] [place] Comment on above: Performed By: #### A DIFF, GFR, CBC, FT3, ANEU, LD, FT4, TSH, CMP, JUANCARLOS ####[place] [id number] WBC 8.4 10 3/mcL Normal 4.5-10.8 [facility] [place] Comment on above: Performed By: #### A DIFF, GFR, CBC, FT3, ANEU, LD, FT4, TSH, CMP, JUANCARLOS ####[place] [address] CMPon 02-16-2023 Albumin Level 3.1 G/dL Low 3.2-4.8 [facility] [place] Comment on above: Performed By: #### A DIFF, GFR, CBC, FT3, ANEU, LD, FT4, TSH, CMP, JUANCARLOS ####[place] [address] Albumin/Globulin [Mass ratio] 0.8 {ratio} Low 0.9-1.6 [facility] [place] Comment on above: Performed By: #### A DIFF, GFR, CBC, FT3, ANEU, LD, FT4, TSH, CMP, JUANCARLOS ####[place] [address] ALP [Catalytic activity/Vol] 137 U/L High 38-126 [facility] [place] Comment on above: Performed By: #### A DIFF, GFR, CBC, FT3, ANEU, LD, FT4, TSH, CMP, JUANCARLOS ####[place] [address] ALT [Catalytic activity/Vol] 16 U/L Normal 12-55 [facility] [place] Comment on above: Performed By: #### A DIFF, GFR, CBC, FT3, ANEU, LD, FT4, TSH, CMP, JUANCARLOS ####[place] [id number] AST [Catalytic activity/Vol] 17 U/L Normal 8-34 [facility] [place] Comment on above: Performed By: #### A DIFF, GFR, CBC, FT3, ANEU, LD, FT4, TSH, CMP, JUANCARLOS ####[place] [address] Bili Total 0.70 mg/dL Normal 0.20-1.20 [facility] [place] Comment on above: Result Comment: Use of this assay is not recommended for patients undergoing treatment with eltrombopag due to the potential for falsely elevated results. Performed By: #### A DIFF, GFR, CBC, FT3, ANEU, LD, FT4, TSH, CMP, JUANCARLOS ####[place] [address] BUN/Creatinine Ratio 14.5 ratio Normal 10.0-22.0 [facility] ([place]) Comment on above: Performed By: #### A DIFF, GFR, CBC, FT3, ANEU, LD, FT4, TSH, CMP, JUANCARLOS ####[place] [id number] Calcium [Mass/Vol] 8.6 mg/dL Low 8.7-10.4 [facility] ([place]) Comment on above: Performed By: #### A DIFF, GFR, CBC, FT3, ANEU, LD, FT4, TSH, CMP, JUANCARLOS ####[place] [id number] Chloride [Moles/Vol] 104 mmol/L Normal 98-110 [facility] ([place]) Comment on above: Performed By: #### A DIFF, GFR, CBC, FT3, ANEU, LD, FT4, TSH, CMP, JUANCARLOS ####[address] [address] CO2 [Moles/Vol] 32 mmol/L Normal 22-32 [facility] [place] Comment on above: Performed By: #### A DIFF, GFR, CBC, FT3, ANEU, LD, FT4, TSH, CMP, JUANCARLOS ####[address] [address] Creatinine [Mass/Vol] 1.38 mg/dL Normal 0.60-1.40 [facility] ([place]) Comment on above: Performed By: #### A DIFF, GFR, CBC, FT3, ANEU, LD, FT4, TSH, CMP, JUANCARLOS ####[place] [address] Electrolyte Balance 3.0 mEq/L Low 4.0-15.0 [facility] ([place]) Comment on above: Performed By: #### A DIFF, GFR, CBC, FT3, ANEU, LD, FT4, TSH, CMP, JUANCARLOS ####[place] [address] Globulin 3.7 G/dL Normal 1.5-3.8 [facility] [place] Comment on above: Performed By: #### A DIFF, GFR, CBC, FT3, ANEU, LD, FT4, TSH, CMP, JUANCARLOS ####[place] [address] Glucose [Mass/Vol] 218 mg/dL High 70-110 [facility] ([place]) Comment on above: Performed By: #### A DIFF, GFR, CBC, FT3, ANEU, LD, FT4, TSH, CMP, JUANCARLOS ####[place] [address] Potassium [Moles/Vol] 3.6 mmol/L Normal 3.5-5.0 [facility] ([place] Comment on above: Performed By: #### A DIFF, GFR, CBC, FT3, ANEU, LD, FT4, TSH, CMP, JUANCARLOS ####[address] [address] Sodium [Moles/Vol] 139 mmol/L Normal 136-145 [facility] ([place]) Comment on above: Performed By: #### A DIFF, GFR, CBC, FT3, ANEU, LD, FT4, TSH, CMP, JUANCARLOS ####[place] [address] Total Protein 6.8 G/dL Normal 5.7-8.2 [facility] [place] Comment on above: Result Comment: No te - New Reference Range in effect 19 Performed By: #### A DIFF, GFR, CBC, FT3, ANEU, LD, FT4, TSH, CMP, JUANCARLOS ####[place] [address] Urea nitrogen [Mass/Vol] 20.0 mg/dL Normal 8.0-22.0 [facility] [place] Comment on above: Performed By: #### A DIFF, GFR, CBC, FT3, ANEU, LD, FT4, TSH, CMP, JUANCARLOS ####[place] [address] CORTon 02-16-2023 Cortisol Level 16.8 mcg/dL Normal [facility] [place] Comment on above: Result Comment: Juancarlos isol AM Reference Range 6.5-26.0 mcg/dLCortisol PM Reference Range 3.5-15.0 mcg/dL Performed By: #### A DIFF, GFR, CBC, FT3, ANEU, LD, FT4, TSH, CMP, JUANCARLOS ####[place] [address] FT3on 02-16-2023 Free T3 [Mass/Vol] 3.07 pg/mL Normal 2.30-4.20 [facility] ([place]) Comment on above: Performed By: #### A DIFF, GFR, CBC, FT3, ANEU, LD, FT4, TSH, CMP, JUANCARLOS ####[place] [address] FT4on 02-16-2023 Free T4 [Mass/Vol] 1.17 ng/dL Normal 0.89-1.76 [facility] ([place]) Comment on above: Result Comment: No te - New Reference Range in effect 19 Performed By: #### A DIFF, GFR, CBC, FT3, ANEU, LD, FT4, TSH, CMP, JUANCARLOS ####[place] [id number] [address] [place] [address] LABORATORYOrdered By: SYSTEM SYSTEM on 02-16-2023 Albumin [...] LDHon 02-16-2023 LDH 189 U/L Normal 120-246 [facility] [place] Comment on above: Performed By: #### A DIFF, GFR, CBC, FT3, ANEU, LD, FT4, TSH, CMP, JUANCARLOS ####[place] [address] TSHon 02-16-2023 TSH 6.717 mIU/mL High 0.550-4.780 [facility] [place] Comment on above: Result Comment: No te - New Reference Range in effect 19 Performed By: #### A DIFF, GFR, CBC, FT3, ANEU, LD, FT4, TSH, CMP, JUANCARLOS ####[place] [address] .Auto Diffon 01-19-2023 Basophil, Absolute 0.1 10 3/mcL Normal 0.0-0.3 [facility] ([place]) Comment on above: Performed By: #### F T3, ANEU, TSH, GFR, ADIFF, CBC, LD, CMP, FT4, JUANCARLOS ####[address] [place] [address] Basophils/100 WBC (Bld) 0.9 % Normal 0.0-2.5 [facility] [place] Comment on above: Performed By: #### F T3, ANEU, TSH, GFR, ADIFF, CBC, LD, CMP, FT4, JUANCARLOS ####[address] [address] Eosinophil, Absolute 0.4 10 3/mcL Normal 0.0-0.7 [facility] ([place] Comment on above: Performed By: #### F T3, ANEU, TSH, GFR, ADIFF, CBC, LD, CMP, FT4, JUANCARLOS ####[address] [address] Eosinophils/100 WBC (Bld) 4.2 % Normal 0.0-6.0 [facility] [place] Comment on above: Performed By: #### F T3, ANEU, TSH, GFR, ADIFF, CBC, LD, CMP, FT4, JUANCARLOS ####[address] [address] Lymphocyte, Absolute 1.0 10 3/mcL Normal 0.9-4.3 [facility] ([place] Comment on above: Performed By: #### F T3, ANEU, TSH, GFR, ADIFF, CBC, LD, CMP, FT4, JUANCARLOS ####[address] [address] Lymphocytes/100 WBC (Bld) 11.0 % Low 20.0-40.0 [facility] [place] Comment on above: Performed By: #### F T3, ANEU, TSH, GFR, ADIFF, CBC, LD, CMP, FT4, JUANCARLOS ####[address] [address] Monocyte, Absolute 0.5 10 3/mcL Normal 0.1-1.4 [facility] ([place]) Comment on above: Performed By: #### F T3, ANEU, TSH, GFR, ADIFF, CBC, LD, CMP, FT4, JUANCARLOS ####[address] [address] Monocytes/100 WBC (Bld) 5.4 % Normal 2.0-13.0 [facility] [place] Comment on above: Performed By: #### F T3, ANEU, TSH, GFR, ADIFF, CBC, LD, CMP, FT4, JUANCARLOS ####[address] [address] Neutrophils/100 WBC (Bld) 78.5 % High 50.0-75.0 [facility] [place] Comment on above: Performed By: #### F T3, ANEU, TSH, GFR, ADIFF, CBC, LD, CMP, FT4, JUANCARLOS ####[address] [address] .GFRon 01-19-2023 GFR >60 Normal [facility] ([place]) Comment on above: Result Comment: GFR Population [...] GFR, ADIFF, CBC, LD, CMP, FT4, JUANCARLOS ####[address] [address] GFR Non- 58 ml/min/1.73sqm Normal [facility] [place] Comment on above: Result Comment: GFR Population [...] GFR, ADIFF, CBC, LD, CMP, FT4, JUANCARLOS ####[place] [address] .NEUABSon 01-19-2023 Neutrophil, Absolute 7.1 10 3/mcL Normal 2.3-8.1 [facility] ([place] Comment on above: Performed By: #### F T3, ANEU, TSH, GFR, ADIFF, CBC, LD, CMP, FT4, JUANCARLOS ####[place] [address] CBCon 01-19-2023 Erythrocyte distribution width (RBC) [Ratio] 22.5 % High 11.5-15.5 [facility] [place] Comment on above: Performed By: #### F T3, ANEU, TSH, GFR, ADIFF, CBC, LD, CMP, FT4, JUANCARLOS ####[place] [address] Hematocrit (Bld) [Volume fraction] 44.4 % Normal 40.0-52.0 [facility] [place] Comment on above: Performed By: #### F T3, ANEU, TSH, GFR, ADIFF, CBC, LD, CMP, FT4, JUANCARLOS ####[place] [address] Hgb 14.3 G/dL Normal 13.0-17.5 [facility] [place] Comment on above: Performed By: #### F T3, ANEU, TSH, GFR, ADIFF, CBC, LD, CMP, FT4, JUANCARLOS ####[place] [address] MCH (RBC) [Entitic mass] 27.8 pg Normal 27.0-33.0 [facility] [place] Comment on above: Performed By: #### F T3, ANEU, TSH, GFR, ADIFF, CBC, LD, CMP, FT4, JUANCARLOS ####[place] [address] MCHC 32.3 G/dL Normal 32.0-36.0 [facility] [place] Comment on above: Performed By: #### F T3, ANEU, TSH, GFR, ADIFF, CBC, LD, CMP, FT4, JUANCARLOS ####[place] [address] MCV (RBC) [Entitic vol] 86.3 fL Normal 81.0-100.0 [facility] [place] Comment on above: Performed By: #### F T3, ANEU, TSH, GFR, ADIFF, CBC, LD, CMP, FT4, JUANCARLOS ####[place] [address] Platelet 245 10 3/mcL Normal 150-450 [facility] [place] Comment on above: Performed By: #### F T3, ANEU, TSH, GFR, ADIFF, CBC, LD, CMP, FT4, JUANCARLOS ####[place] [address] Platelet mean volume (Bld) [Entitic vol] 7.0 fL Normal 6.4-10.5 [facility] [place] Comment on above: Performed By: #### F T3, ANEU, TSH, GFR, ADIFF, CBC, LD, CMP, FT4, JUANCARLOS ####[place] [address] RBC 5.14 10 6/mcL Normal 4.50-6.00 [facility] [place] Comment on above: Performed By: #### F T3, ANEU, TSH, GFR, ADIFF, CBC, LD, CMP, FT4, JUANCARLOS ####[place] [address] WBC 9.1 10 3/mcL Normal 4.5-10.8 [facility] [place] Comment on above: Performed By: #### F T3, ANEU, TSH, GFR, ADIFF, CBC, LD, CMP, FT4, JUANCARLOS ####[place] [address] CMPon 01-19-2023 Albumin Level 3.4 G/dL Normal 3.2-4.8 [facility] [place] Comment on above: Performed By: #### F T3, ANEU, TSH, GFR, ADIFF, CBC, LD, CMP, FT4, JUANCARLOS ####[place] [address] Albumin/Globulin [Mass ratio] 0.9 {ratio} Normal 0.9-1.6 [facility] [place] Comment on above: Performed By: #### F T3, ANEU, TSH, GFR, ADIFF, CBC, LD, CMP, FT4, JUANCARLOS ####[place] [address] ALP [Catalytic activity/Vol] 126 U/L Normal 38-126 [facility] [place] Comment on above: Performed By: #### F T3, ANEU, TSH, GFR, ADIFF, CBC, LD, CMP, FT4, JUANCARLOS ####[place] [address] ALT [Catalytic activity/Vol] 18 U/L Normal 12-55 [facility] [place] Comment on above: Performed By: #### F T3, ANEU, TSH, GFR, ADIFF, CBC, LD, CMP, FT4, JUANCARLOS ####[place] [address] AST [Catalytic activity/Vol] 19 U/L Normal 8-34 [facility] [place] Comment on above: Performed By: #### F T3, ANEU, TSH, GFR, ADIFF, CBC, LD, CMP, FT4, JUANCARLOS ####[place] [address] Bili Total 0.60 mg/dL Normal 0.20-1.20 [facility] [place] Comment on above: Result Comment: Use of this assay is not recommended for patients undergoing treatment with eltrombopag due to the potential for falsely elevated results. Performed By: #### F T3, ANEU, TSH, GFR, ADIFF, CBC, LD, CMP, FT4, JUANCARLOS ####[place] [address] BUN/Creatinine Ratio 14.2 ratio Normal 10.0-22.0 [facility] ([place] Comment on above: Performed By: #### F T3, ANEU, TSH, GFR, ADIFF, CBC, LD, CMP, FT4, JUANCARLOS ####[place] [address] Calcium [Mass/Vol] 8.7 mg/dL Normal 8.7-10.4 [facility] ([place] Comment on above: Performed By: #### F T3, ANEU, TSH, GFR, ADIFF, CBC, LD, CMP, FT4, JUANCARLOS ####[place] [address] Chloride [Moles/Vol] 107 mmol/L Normal 98-110 [facility] ([place]) Comment on above: Performed By: #### F T3, ANEU, TSH, GFR, ADIFF, CBC, LD, CMP, FT4, JUANCARLOS ####[place] [address] CO2 [Moles/Vol] 29 mmol/L Normal 22-32 [facility] ([place]) Comment on above: Performed By: #### F T3, ANEU, TSH, GFR, ADIFF, CBC, LD, CMP, FT4, JUANCARLOS ####[place] [address] Creatinine [Mass/Vol] 1.34 mg/dL Normal 0.60-1.40 [facility] ([place]) Comment on above: Performed By: #### F T3, ANEU, TSH, GFR, ADIFF, CBC, LD, CMP, FT4, JUANCARLOS ####[place] [address] Electrolyte Balance 5.0 mEq/L Normal 4.0-15.0 [facility] ([place]) Comment on above: Performed By: #### F T3, ANEU, TSH, GFR, ADIFF, CBC, LD, CMP, FT4, JUANCARLOS ####[place] [address] Globulin 3.6 G/dL Normal 1.5-3.8 [facility] ([place] Comment on above: Performed By: #### F T3, ANEU, TSH, GFR, ADIFF, CBC, LD, CMP, FT4, JUANCARLOS ####[place] [address] Glucose [Mass/Vol] 163 mg/dL High 70-110 [facility] ([place]) Comment on above: Performed By: #### F T3, ANEU, TSH, GFR, ADIFF, CBC, LD, CMP, FT4, JUANCARLOS ####[place] [address] Potassium [Moles/Vol] 4.2 mmol/L Normal 3.5-5.0 [facility] ([place]) Comment on above: Performed By: #### F T3, ANEU, TSH, GFR, ADIFF, CBC, LD, CMP, FT4, JUANCARLOS ####[place] [address] Sodium [Moles/Vol] 141 mmol/L Normal 136-145 [facility] ([place]) Comment on above: Performed By: #### F T3, ANEU, TSH, GFR, ADIFF, CBC, LD, CMP, FT4, JUANCARLOS ####[place] [address] Total Protein 7.0 G/dL Normal 5.7-8.2 [facility] ([place]) Comment on above: Result Comment: No te - New Reference Range in effect 19 Performed By: #### F T3, ANEU, TSH, GFR, ADIFF, CBC, LD, CMP, FT4, JUANCARLOS ####[place] [address] Urea nitrogen [Mass/Vol] 19.0 mg/dL Normal 8.0-22.0 [facility] ([place] Comment on above: Performed By: #### F T3, ANEU, TSH, GFR, ADIFF, CBC, LD, CMP, FT4, JUANCARLOS ####[place] [address] CORTon 01-19-2023 Cortisol Level 22.7 mcg/dL Normal [facility] ([place]) Comment on above: Result Comment: Juancarlos isol AM Reference Range 6.5-26.0 mcg/dLCortisol PM Reference Range 3.5-15.0 mcg/dL Performed By: #### F T3, ANEU, TSH, GFR, ADIFF, CBC, LD, CMP, FT4, JUANCARLOS ####[place] [address] FT3on 01-19-2023 Free T3 [Mass/Vol] 3.72 pg/mL Normal 2.30-4.20 [facility] ([place]) Comment on above: Performed By: #### F T3, ANEU, TSH, GFR, ADIFF, CBC, LD, CMP, FT4, JUANCARLOS ####[place] [address] FT4on 01-19-2023 Free T4 [Mass/Vol] 1.07 ng/dL Normal 0.89-1.76 [facility] ([place]) Comment on above: Result Comment: No te - New Reference Range in effect 19 Performed By: #### F T3, ANEU, TSH, GFR, ADIFF, CBC, LD, CMP, FT4, JUANCARLOS ####[place] [address] LABORATORYOrdered By: SYSTEM SYSTEM on 01-19-2023 Albumin [...] LDHon 01-19-2023 LDH 220 U/L Normal 120-246 [facility] ([place]) Comment on above: Performed By: #### F T3, ANEU, TSH, GFR, ADIFF, CBC, LD, CMP, FT4, JUANCARLOS ####[address] [address] TSHon 01-19-2023 TSH 7.932 mIU/mL High 0.550-4.780 [facility] ([place]) Comment on above: Result Comment: No te - New Reference Range in effect 19 Performed By: #### F T3, ANEU, TSH, GFR, ADIFF, CBC, LD, CMP, FT4, JUANCARLOS ####[address] [address] Beta 2 glycoprotein 1 Ab IgA and IgG and IgM panel (S)on 11-29-2022 Beta 2 glycoprotein 1 IgA Qn (S) <0.6 Normal <20.0 [facility] Comment on above: Result Comment: Elev ated [...] By: #### 5 6152-2 #### KITTY Stokes ([id number]) [facility] ([facility]) [address] [place] [address] Beta 2 glycoprotein 1 IgG Qn (S) <1.4 Normal <20.0 [facility] Comment on above: Result Comment: Elev ated levels of IgG anti-Beta 2 Glycoprotein-I on 2 occasions at least 12 weeks apart are laboratory criteria for anti-phospholipid syndrome according to an international consensus (J Thromb Haemost 2006 4:295). Performed By: #### 5 6152-2 #### KITTY Stokes ([id number]) [facility] ([facility]) [address] [place] [address] Beta 2 glycoprotein 1 IgM Qn (S) <0.2 Normal <20.0 [facility] Comment on above: Result Comment: Elev ated [...] By: #### 5 6152-2 #### KITTY Stokes ([id number]) [facility] ([facility]) [id number] [place] [address] Cardiolipin Ab IA Qn (S)on Cardiolipin IgA Qn <0.5 Normal <20.0 [facility] Comment on above: Result Comment: Elev ated levels of IgA anti-cardiolipin have not been included in the laboratory criteria for anti-phospholipid syndrome according to an international consensus (J Thromb Haemost 2006 4:295). It may be helpful in identifying subgroups of patients at risk for specific clinical manifestations of anti-phospholipid syndrome. Performed By: #### 3 180-7 #### KITTY Stokes ([id number]) [facility] ([facility]) [address] [place], [place] [address] Cardiolipin IgG IA Qn (S) <1.6 Normal <20.0 [facility] Comment on above: Result Comment: Elev ated levels of IgG anti-cardiolipin on 2 occasions at least 12 weeks apart are laboratory criteria for anti-phospholipid syndrome according to an international consensus (J Thromb Haemost 2006 4:295). Performed By: #### 3 180-7 #### KITTY Stokes ([id number]) [facility] ([facility]) [address] [place] [address] Cardiolipin IgM IA Qn (S) <0.2 Normal <20.0 [facility] Comment on above: Result Comment: Elev ated [...] By: #### 3 180-7 #### KITTY Stokes ([id number]) [facility] ([facility]) [address] [place] [address] US Heart TransthoracicOrdere d By: Rivka Elkins on 11-27-2022 LV A4C EF 66.3 [facility] Work Phone: [facility] Work Phone: [facility] Heart Transthoracicon [facility] [address], [address], [place] [address] TRANSTHORACIC ECHOCARDIOGRAM REPORT Patient Name: LYNDSAY LOPEZ Reading Physician: Niko Elkins MD Study Date: 11/23/2022 Ordering Provider: Niko ELKINS MRN/PID: [id number] Fellow: Nurse: Mary Jo Oneil RN Date of /Age: 4 1980 / 42 years Rubber Tubing Backer: Carmencita Bernard RDCS Gender: M Additional Staff: Height: 172.72 cm Admit Date: Weight: 163.30 kg Admission Status: Outpatient BSA: 2.62 m2 Department Location: [facility] Blood Pressure: 122 /58 mmHg Study Type: TRANSTHORACIC ECHO (TTE) COMPLETE Diagnosis/ICD: Shortness of breath-R06.02; Typical atrial flutter-I48.3 Indication: A Flutter, SOB CPT Code: Echo Complete w Full Doppler-57735 Study Detail: The following Echo studies were [...] PM Final Rivka Tim MD - 11/27/2022 [facility] [address], [address], [place] [address] TRANSTHORACIC ECHOCARDIOGRAM REPORT Patient Name: LYNDSAY Chowdhury Physician: Niko Elkins MD Study Date: 11/23/2022 Ordering Provider: Niko ELKINS MRN/PID: [id number] Fellow: Nurse: Mary Jo Oneil RN Date of /Age: 4 1980 / 42 years Rubber Tubing Backer: Carmencita Bernard GARRETT Gender: M Additional Staff: Height: 172.72 cm Admit Date: Weight: 163.30 kg Admission Status: Outpatient BSA: 2.62 m2 Department Location: [facility] Blood Pressure: 122 /58 mmHg Study Type: TRANSTHORACIC ECHO (TTE) COMPLETE Diagnosis/ICD: Shortness of breath-R06.02; Typical atrial flutter-I48.3 Indication: A Flutter, SOB CPT Code: Echo Complete w Full Doppler-32916 Study Detail: The following Echo studies were [...] m/s MV DT: 187 msec (150-240 msec) [id number] Rivka Elkins MD Electronically signed on 11/27/2022 at 4:47:40 PM Final [facility] Work Phone: .Auto Diffon 11-24-2022 Basophil, Absolute 0.1 10 3/mcL Normal 0.0-0.3 [facility] ([place]) Comment on above: Performed By: #### F T4, JUANCARLOS, ANEU, FT3, TSH, CMP, GFR, CBC, ADIFF, LD ####[address] [address] Basophils/100 WBC (Bld) 0.7 % Normal 0.0-2.5 [facility] ([place]) Comment on above: Performed By: #### F T4, JUANCARLOS, ANEU, FT3, TSH, CMP, GFR, CBC, ADIFF, LD ####[address] [address] Eosinophil, Absolute 0.9 10 3/mcL High 0.0-0.7 [facility] ([place]) Comment on above: Performed By: #### F T4, JUANCARLOS, ANEU, FT3, TSH, CMP, GFR, CBC, ADIFF, LD ####[address] [address] Eosinophils/100 WBC (Bld) 12.1 % High 0.0-6.0 [facility] ([place]) Comment on above: Performed By: #### F T4, JUANCARLOS, ANEU, FT3, TSH, CMP, GFR, CBC, ADIFF, LD ####[address] [address] Lymphocyte, Absolute 1.0 10 3/mcL Normal 0.9-4.3 [facility] ([place]) Comment on above: Performed By: #### F T4, JUANCARLOS, ANEU, FT3, TSH, CMP, GFR, CBC, ADIFF, LD ####[address] [address] Lymphocytes/100 WBC (Bld) 14.2 % Low 20.0-40.0 [facility] ([place]) Comment on above: Performed By: #### F T4, JUANCARLOS, ANEU, FT3, TSH, CMP, GFR, CBC, ADIFF, LD ####[address] [address] Monocyte, Absolute 0.6 10 3/mcL Normal 0.1-1.4 [facility] ([place]) Comment on above: Performed By: #### F T4, JUANCARLOS, ANEU, FT3, TSH, CMP, GFR, CBC, ADIFF, LD ####[address] [address] Monocytes/100 WBC (Bld) 7.7 % Normal 2.0-13.0 [facility] ([place] Comment on above: Performed By: #### F T4, JUANCARLOS, ANEU, FT3, TSH, CMP, GFR, CBC, ADIFF, LD ####[address] [address] Neutrophils/100 WBC (Bld) 65.3 % Normal 50.0-75.0 [facility] ([place] Comment on above: Performed By: #### F T4, JUANCARLOS, ANEU, FT3, TSH, CMP, GFR, CBC, ADIFF, LD ####[address] [address] .GFRon 11-24-2022 GFR >60 Normal [facility] ([place]) Comment on above: Result Comment: GFR Population [...] FT3, TSH, CMP, GFR, CBC, ADIFF, LD ####[address] [address] GFR Non- 58 ml/min/1.73sqm Normal [facility] ([place]) Comment on above: Result Comment: GFR Population [...] FT3, TSH, CMP, GFR, CBC, ADIFF, LD ####[address] [address] .NEUABSon 11-24-2022 Neutrophil, Absolute 4.8 10 3/mcL Normal 2.3-8.1 [facility] ([place]) Comment on above: Performed By: #### F T4, JUANCARLOS, ANEU, FT3, TSH, CMP, GFR, CBC, ADIFF, LD ####[place] [address] CBCon 11-24-2022 Erythrocyte distribution width (RBC) [Ratio] 19.3 % High 11.5-15.5 [facility] ([place]) Comment on above: Performed By: #### F T4, JUANCARLOS, ANEU, FT3, TSH, CMP, GFR, CBC, ADIFF, LD ####[place] [address] Hematocrit (Bld) [Volume fraction] 41.3 % Normal 40.0-52.0 [facility] ([place] Comment on above: Performed By: #### F T4, JUANCARLOS, ANEU, FT3, TSH, CMP, GFR, CBC, ADIFF, LD ####[place] [address] Hgb 13.1 G/dL Normal 13.0-17.5 [facility] ([place]) Comment on above: Performed By: #### F T4, JUANCARLOS, ANEU, FT3, TSH, CMP, GFR, CBC, ADIFF, LD ####[place] [address] MCH (RBC) [Entitic mass] 27.0 pg Normal 27.0-33.0 [facility] ([place] Comment on above: Performed By: #### F T4, JUANCARLOS, ANEU, FT3, TSH, CMP, GFR, CBC, ADIFF, LD ####[place] [address] MCHC 31.8 G/dL Low 32.0-36.0 [facility] ([place] Comment on above: Performed By: #### F T4, JUANCARLOS, ANEU, FT3, TSH, CMP, GFR, CBC, ADIFF, LD ####[place] [address] MCV (RBC) [Entitic vol] 85.0 fL Normal 81.0-100.0 [facility] ([place]) Comment on above: Performed By: #### F T4, JUANCARLOS, ANEU, FT3, TSH, CMP, GFR, CBC, ADIFF, LD ####[place] [address] Platelet 233 10 3/mcL Normal 150-450 [facility] ([place]) Comment on above: Performed By: #### F T4, JUANCARLOS, ANEU, FT3, TSH, CMP, GFR, CBC, ADIFF, LD ####[place] [address] Platelet mean volume (Bld) [Entitic vol] 7.7 fL Normal 6.4-10.5 [facility] ([place] Comment on above: Performed By: #### F T4, JUANCARLOS, ANEU, FT3, TSH, CMP, GFR, CBC, ADIFF, LD ####[place] [address] RBC 4.86 10 6/mcL Normal 4.50-6.00 [facility] ([place] Comment on above: Performed By: #### F T4, JUANCARLOS, ANEU, FT3, TSH, CMP, GFR, CBC, ADIFF, LD ####[place] [address] WBC 7.4 10 3/mcL Normal 4.5-10.8 [facility] ([place] Comment on above: Performed By: #### F T4, JUANCARLOS, ANEU, FT3, TSH, CMP, GFR, CBC, ADIFF, LD ####[place] [address] CMPon 11-24-2022 Albumin Level 3.5 G/dL Normal 3.2-4.8 [facility] ([place] Comment on above: Performed By: #### F T4, JUANCARLOS, ANEU, FT3, TSH, CMP, GFR, CBC, ADIFF, LD ####[address] [address] Albumin/Globulin [Mass ratio] 0.9 {ratio} Normal 0.9-1.6 [facility] ([place] Comment on above: Performed By: #### F T4, JUANCARLOS, ANEU, FT3, TSH, CMP, GFR, CBC, ADIFF, LD ####[address] [address] ALP [Catalytic activity/Vol] 123 U/L Normal 38-126 [facility]) Comment on above: Performed By: #### F T4, JUANCARLOS, ANEU, FT3, TSH, CMP, GFR, CBC, ADIFF, LD ####[address] [address] ALT [Catalytic activity/Vol] 19 U/L Normal 12-55 [facility]) Comment on above: Performed By: #### F T4, JUANCARLOS, ANEU, FT3, TSH, CMP, GFR, CBC, ADIFF, LD ####[place] [id number] AST [Catalytic activity/Vol] 20 U/L Normal 8-34 [facility]) Comment on above: Performed By: #### F T4, JUANCARLOS, ANEU, FT3, TSH, CMP, GFR, CBC, ADIFF, LD ####[place] [id number] Bili Total 0.50 mg/dL Normal 0.20-1.20 [facility] ([place]) Comment on above: Result Comment: Use of this assay is not recommended for patients undergoing treatment with eltrombopag due to the potential for falsely elevated results. Performed By: #### F T4, JUANCARLOS, ANEU, FT3, TSH, CMP, GFR, CBC, ADIFF, LD ####[place] [address] BUN/Creatinine Ratio 11.2 ratio Normal 10.0-22.0 [facility] ([place]) Comment on above: Performed By: #### F T4, JUANCARLOS, ANEU, FT3, TSH, CMP, GFR, CBC, ADIFF, LD ####[address] [address] Calcium [Mass/Vol] 8.9 mg/dL Normal 8.7-10.4 [facility] ([place]) Comment on above: Performed By: #### F T4, JUANCARLOS, ANEU, FT3, TSH, CMP, GFR, CBC, ADIFF, LD ####[address] [address] Chloride [Moles/Vol] 106 mmol/L Normal 98-110 [facility] ([place]) Comment on above: Performed By: #### F T4, JUANCARLOS, ANEU, FT3, TSH, CMP, GFR, CBC, ADIFF, LD ####[address] [address] CO2 [Moles/Vol] 28 mmol/L Normal 22-32 [facility] ([place]) Comment on above: Performed By: #### F T4, JUANCARLOS, ANEU, FT3, TSH, CMP, GFR, CBC, ADIFF, LD ####[address] [address] Creatinine [Mass/Vol] 1.34 mg/dL Normal 0.60-1.40 [facility] ([place]) Comment on above: Performed By: #### F T4, JUANCARLOS, ANEU, FT3, TSH, CMP, GFR, CBC, ADIFF, LD ####[place] [address] Electrolyte Balance 5.0 mEq/L Normal 4.0-15.0 [facility] ([place]) Comment on above: Performed By: #### F T4, JUANCARLOS, ANEU, FT3, TSH, CMP, GFR, CBC, ADIFF, LD ####[place] [id number] Globulin 3.7 G/dL Normal 1.5-3.8 [facility] ([place]) Comment on above: Performed By: #### F T4, JUANCARLOS, ANEU, FT3, TSH, CMP, GFR, CBC, ADIFF, LD ####[address] [address] Glucose [Mass/Vol] 123 mg/dL High 70-110 [facility] ([place]) Comment on above: Performed By: #### F T4, JUANCARLOS, ANEU, FT3, TSH, CMP, GFR, CBC, ADIFF, LD ####[address] [address] Potassium [Moles/Vol] 4.8 mmol/L Normal 3.5-5.0 [facility] ([place]) Comment on above: Performed By: #### F T4, JUANCARLOS, ANEU, FT3, TSH, CMP, GFR, CBC, ADIFF, LD ####[place] [id number] Sodium [Moles/Vol] 139 mmol/L Normal 136-145 [facility] ([place]) Comment on above: Performed By: #### F T4, JUANCARLOS, ANEU, FT3, TSH, CMP, GFR, CBC, ADIFF, LD ####[place] [address] Total Protein 7.2 G/dL Normal 5.7-8.2 [facility] ([place]) Comment on above: Result Comment: No te - New Reference Range in effect 19 Performed By: #### F T4, JUANCARLOS, ANEU, FT3, TSH, CMP, GFR, CBC, ADIFF, LD ####[place] [address] Urea nitrogen [Mass/Vol] 15.0 mg/dL Normal 8.0-22.0 [facility] ([place]) Comment on above: Performed By: #### F T4, JUANCARLOS, ANEU, FT3, TSH, CMP, GFR, CBC, ADIFF, LD ####[place] [address] CORTon 11-24-2022 Cortisol Level 12.6 mcg/dL Normal [facility] ([place]) Comment on above: Result Comment: Juancarlos isol AM Reference Range 6.5-26.0 mcg/dLCortisol PM Reference Range 3.5-15.0 mcg/dL Performed By: #### F T4, JUANCARLOS, ANEU, FT3, TSH, CMP, GFR, CBC, ADIFF, LD ####[place] [address] [address] [place] [address] FT3on 11-24-2022 Free T3 [Mass/Vol] 3.14 pg/mL Normal 2.30-4.20 [facility] ([place]) Comment on above: Performed By: #### F T4, JUANCARLOS, ANEU, FT3, TSH, CMP, GFR, CBC, ADIFF, LD ####[address] [address] FT4on 11-24-2022 Free T4 [Mass/Vol] 1.01 ng/dL Normal 0.89-1.76 [facility] ([place]) Comment on above: Result Comment: No te - New Reference Range in effect 19 Performed By: #### F T4, JUANCARLOS, ANEU, FT3, TSH, CMP, GFR, CBC, ADIFF, LD ####[place] [address] LABORATORYOrdered By: SYSTEM SYSTEM on 11-24-2022 Albumin [...] LDHon 11-24-2022 LDH 249 U/L High 120-246 [facility] ([place]) Comment on above: Performed By: #### F T4, JUANCARLOS, ANEU, FT3, TSH, CMP, GFR, CBC, ADIFF, LD ####[place] [address] [address] [place] [address] TSHon 11-24-2022 TSH 5.707 mIU/mL High 0.550-4.780 [facility] ([place]) Comment on above: Result Comment: No te - New Reference Range in effect 19 Performed By: #### F T4, JUANCARLOS, ANEU, FT3, TSH, CMP, GFR, CBC, ADIFF, LD ####[place] [address] [address] [place] [address] TRANSTHORACIC ECHO (TTE) COM PLETEon 11-23-2022 TRANSTHORACIC ECHO (TTE) COMPLETE [facility] [address], [address], [place] [address] TRANSTHORACIC ECHOCARDIOGRAM REPORT Patient Name: LYNDSAY Chowdhury Physician: Niko Elkins MD Study Date: 11/23/2022 Ordering Provider: Niko ELKINS MRN/PID: [id number] Fellow: Nurse: Mary Jo Oneil RN Date of /Age: 4 1980 / 42 years Rubber Tubing Backer: Carmencita Bernard RDCS Gender: M Additional Staff: Height: 172.72 cm Admit Date: Weight: 163.30 kg Admission Status: Outpatient BSA: 2.62 m2 Department Location: [facility] Blood Pressure: 122 /58 mmHg Study Type: TRANSTHORACIC ECHO (TTE) COMPLETE Diagnosis/ICD: Shortness of breath-R06.02; Typical atrial flutter-I48.3 Indication: A Flutter, SOB CPT Code: Echo Complete w Full Doppler-55587 Study Detail: The following Echo studies were [...] m/s MV DT: 187 msec (150-240 msec) [address] Rivka Elkins MD Electronically signed on 11/27/2022 at 4:47:40 PM Final Normal [facility] .Auto Diffon 10-27-2022 Basophil, Absolute 0.1 10 3/mcL Normal 0.0-0.3 [facility] ([place]) Comment on above: Performed By: #### C BC, JUANACRLOS, FT4, ANEU, CMP, ADIFF, LD, GFR, TSH, FT3 ####[facility] [place] [address] Basophils/100 WBC (Bld) 1.1 % Normal 0.0-2.5 [facility] ([place] Comment on above: Performed By: #### C BC, JUANCARLOS, FT4, ANEU, CMP, ADIFF, LD, GFR, TSH, FT3 ####[address] [address] Eosinophil, Absolute 0.9 10 3/mcL High 0.0-0.7 [facility] ([place]) Comment on above: Performed By: #### C BC, JUANCARLOS, FT4, ANEU, CMP, ADIFF, LD, GFR, TSH, FT3 ####[address] [address] Eosinophils/100 WBC (Bld) 12.2 % High 0.0-6.0 [facility] ([place]) Comment on above: Performed By: #### C BC, JUANCARLOS, FT4, ANEU, CMP, ADIFF, LD, GFR, TSH, FT3 ####[address] [address] Lymphocyte, Absolute 1.1 10 3/mcL Normal 0.9-4.3 [facility] ([place]) Comment on above: Performed By: #### C BC, JUANCARLOS, FT4, ANEU, CMP, ADIFF, LD, GFR, TSH, FT3 ####[address] [address] Lymphocytes/100 WBC (Bld) 15.2 % Low 20.0-40.0 [facility] [place] Comment on above: Performed By: #### C BC, JUANCARLOS, FT4, ANEU, CMP, ADIFF, LD, GFR, TSH, FT3 ####[address] [address] Monocyte, Absolute 0.7 10 3/mcL Normal 0.1-1.4 [facility] ([place]) Comment on above: Performed By: #### C BC, JUANCARLOS, FT4, ANEU, CMP, ADIFF, LD, GFR, TSH, FT3 ####[address] [address] Monocytes/100 WBC (Bld) 9.6 % Normal 2.0-13.0 [facility] [place] Comment on above: Performed By: #### C BC, JUANCARLOS, FT4, ANEU, CMP, ADIFF, LD, GFR, TSH, FT3 ####[address] [address] Neutrophils/100 WBC (Bld) 61.9 % Normal 50.0-75.0 [facility] ([place] Comment on above: Performed By: #### C BC, JUANCARLOS, FT4, ANEU, CMP, ADIFF, LD, GFR, TSH, FT3 ####[address] [address] .GFRon 10-27-2022 GFR >60 Normal [facility] ([place]) Comment on above: Result Comment: GFR Population [...] ANEU, CMP, ADIFF, LD, GFR, TSH, FT3 ####[address] [address] GFR Non- 54 ml/min/1.73sqm Normal [facility] ([place] Comment on above: Result Comment: GFR Population [...] ANEU, CMP, ADIFF, LD, GFR, TSH, FT3 ####[place] [address] .NEUABSon 10-27-2022 Neutrophil, Absolute 4.4 10 3/mcL Normal 2.3-8.1 [facility] ([place]) Comment on above: Performed By: #### C BC, JUANCARLOS, FT4, ANEU, CMP, ADIFF, LD, GFR, TSH, FT3 ####[place] [address] CBCon 10-27-2022 Erythrocyte distribution width (RBC) [Ratio] 17.2 % High 11.5-15.5 [facility] [place] Comment on above: Performed By: #### C BC, JUANCARLOS, FT4, ANEU, CMP, ADIFF, LD, GFR, TSH, FT3 ####[place] [address] Hematocrit (Bld) [Volume fraction] 37.8 % Low 40.0-52.0 [facility] [place] Comment on above: Performed By: #### C BC, JUANCARLOS, FT4, ANEU, CMP, ADIFF, LD, GFR, TSH, FT3 ####[place] [address] Hgb 12.0 G/dL Low 13.0-17.5 [facility] [place] Comment on above: Performed By: #### C BC, JUANCARLOS, FT4, ANEU, CMP, ADIFF, LD, GFR, TSH, FT3 ####[place] [address] MCH (RBC) [Entitic mass] 27.4 pg Normal 27.0-33.0 [facility] [place] Comment on above: Performed By: #### C BC, JUANCARLOS, FT4, ANEU, CMP, ADIFF, LD, GFR, TSH, FT3 ####[place] [address] MCHC 31.8 G/dL Low 32.0-36.0 [facility] [place] Comment on above: Performed By: #### C BC, JUANCARLOS, FT4, ANEU, CMP, ADIFF, LD, GFR, TSH, FT3 ####[place] [address] MCV (RBC) [Entitic vol] 86.1 fL Normal 81.0-100.0 [facility] [place] Comment on above: Performed By: #### C BC, JUANCARLOS, FT4, ANEU, CMP, ADIFF, LD, GFR, TSH, FT3 ####[place] [address] Platelet 239 10 3/mcL Normal 150-450 [facility] [place] Comment on above: Performed By: #### C BC, JUANCARLOS, FT4, ANEU, CMP, ADIFF, LD, GFR, TSH, FT3 ####[place] [address] Platelet mean volume (Bld) [Entitic vol] 7.8 fL Normal 6.4-10.5 [facility] [place] Comment on above: Performed By: #### C BC, JUANCARLOS, FT4, ANEU, CMP, ADIFF, LD, GFR, TSH, FT3 ####[place] [address] RBC 4.39 10 6/mcL Low 4.50-6.00 [facility] [place] Comment on above: Performed By: #### C BC, JUANCARLOS, FT4, ANEU, CMP, ADIFF, LD, GFR, TSH, FT3 ####[place] [address] WBC 7.1 10 3/mcL Normal 4.5-10.8 [facility] [place] Comment on above: Performed By: #### C BC, JUANCARLOS, FT4, ANEU, CMP, ADIFF, LD, GFR, TSH, FT3 ####[place] [address] CMPon 10-27-2022 Albumin Level 3.3 G/dL Normal 3.2-4.8 [facility] [place] Comment on above: Performed By: #### C BC, JUANCARLOS, FT4, ANEU, CMP, ADIFF, LD, GFR, TSH, FT3 ####[address] [address] Albumin/Globulin [Mass ratio] 1.0 {ratio} Normal 0.9-1.6 [facility] [place] Comment on above: Performed By: #### C BC, JUANCARLOS, FT4, ANEU, CMP, ADIFF, LD, GFR, TSH, FT3 ####[address] [address] ALP [Catalytic activity/Vol] 98 U/L Normal 38-126 [facility] [place] Comment on above: Performed By: #### C BC, JUANCARLOS, FT4, ANEU, CMP, ADIFF, LD, GFR, TSH, FT3 ####[address] [address] ALT [Catalytic activity/Vol] 12 U/L Normal 12-55 [facility] [place] Comment on above: Performed By: #### C BC, JUANCARLOS, FT4, ANEU, CMP, ADIFF, LD, GFR, TSH, FT3 ####[address] [address] AST [Catalytic activity/Vol] 14 U/L Normal 8-34 [facility] [place] Comment on above: Performed By: #### C BC, JUANCARLOS, FT4, ANEU, CMP, ADIFF, LD, GFR, TSH, FT3 ####[place] [id number] Bili Total 0.30 mg/dL Normal 0.20-1.20 [facility] ([place] Comment on above: Result Comment: Use of this assay is not recommended for patients undergoing treatment with eltrombopag due to the potential for falsely elevated results. Performed By: #### C BC, JUANCARLOS, FT4, ANEU, CMP, ADIFF, LD, GFR, TSH, FT3 ####[place] [address] BUN/Creatinine Ratio 13.2 ratio Normal 10.0-22.0 [facility] ([place]) Comment on above: Performed By: #### C BC, JUANCARLOS, FT4, ANEU, CMP, ADIFF, LD, GFR, TSH, FT3 ####[address] [address] Calcium [Mass/Vol] 8.8 mg/dL Normal 8.7-10.4 [facility] ([place]) Comment on above: Performed By: #### C BC, JUANCARLOS, FT4, ANEU, CMP, ADIFF, LD, GFR, TSH, FT3 ####[address] [address] Chloride [Moles/Vol] 108 mmol/L Normal 98-110 [facility] ([place]) Comment on above: Performed By: #### C BC, JUANCARLOS, FT4, ANEU, CMP, ADIFF, LD, GFR, TSH, FT3 ####[place] [id number] CO2 [Moles/Vol] 31 mmol/L Normal 22-32 [facility] [place] Comment on above: Performed By: #### C BC, JUANCARLOS, FT4, ANEU, CMP, ADIFF, LD, GFR, TSH, FT3 ####[place] [address] Creatinine [Mass/Vol] 1.44 mg/dL High 0.60-1.40 [facility] ([place]) Comment on above: Performed By: #### C BC, JUANCARLOS, FT4, ANEU, CMP, ADIFF, LD, GFR, TSH, FT3 ####[place] [address] Electrolyte Balance 6.0 mEq/L Normal 4.0-15.0 [facility] ([place]) Comment on above: Performed By: #### C BC, JUANCARLOS, FT4, ANEU, CMP, ADIFF, LD, GFR, TSH, FT3 ####[place] [address] Globulin 3.4 G/dL Normal 1.5-3.8 [facility] ([place] Comment on above: Performed By: #### C BC, JUANCARLOS, FT4, ANEU, CMP, ADIFF, LD, GFR, TSH, FT3 ####[place] [address] Glucose [Mass/Vol] 136 mg/dL High 70-110 [facility] ([place]) Comment on above: Performed By: #### C BC, JUANCARLOS, FT4, ANEU, CMP, ADIFF, LD, GFR, TSH, FT3 ####[place] [address] Potassium [Moles/Vol] 4.4 mmol/L Normal 3.5-5.0 [facility] ([place]) Comment on above: Performed By: #### C BC, JUANCARLOS, FT4, ANEU, CMP, ADIFF, LD, GFR, TSH, FT3 ####[address] [address] Sodium [Moles/Vol] 145 mmol/L Normal 136-145 [facility] ([place]) Comment on above: Performed By: #### C BC, JUANCARLOS, FT4, ANEU, CMP, ADIFF, LD, GFR, TSH, FT3 ####[place] [address] Total Protein 6.7 G/dL Normal 5.7-8.2 [facility] ([place]) Comment on above: Result Comment: No te - New Reference Range in effect 19 Performed By: #### C BC, JUANCARLOS, FT4, ANEU, CMP, ADIFF, LD, GFR, TSH, FT3 ####[place] [address] Urea nitrogen [Mass/Vol] 19.0 mg/dL Normal 8.0-22.0 [facility] ([place] Comment on above: Performed By: #### C BC, JUANCARLOS, FT4, ANEU, CMP, ADIFF, LD, GFR, TSH, FT3 ####[address] [address] CORTon 10-27-2022 Cortisol Level 17.6 mcg/dL [facility] ([place] Comment on above: Result Comment: Juancarlos isol AM Reference Range 6.5-26.0 mcg/dLCortisol PM Reference Range 3.5-15.0 mcg/dL Performed By: #### C BC, JUANCARLOS, FT4, ANEU, CMP, ADIFF, LD, GFR, TSH, FT3 ####[place] [id number] FT3on 10-27-2022 Free T3 [Mass/Vol] 2.77 pg/mL Normal 2.30-4.20 [facility] ([place]) Comment on above: Performed By: #### C BC, JUANCARLOS, FT4, ANEU, CMP, ADIFF, LD, GFR, TSH, FT3 ####[place] [address] FT4on 10-27-2022 Free T4 [Mass/Vol] 0.96 ng/dL Normal 0.89-1.76 [facility] ([place]) Comment on above: Result Comment: No te - New Reference Range in effect 19 Performed By: #### C BC, JUANCARLOS, FT4, ANEU, CMP, ADIFF, LD, GFR, TSH, FT3 ####[place] [address] LABORATORYOrdered By: SYSTEM SYSTEM on 10-27-2022 Albumin [...] Comment on above: Interpretive Data: Cindy briggs [employer] (CHEST, 1992, 102:312S-25S) recommended therapeutic range for oral anticoagulant therapy is: LOW RISK: Prophylaxis of venous thrombosis INR: 2.0-3.0 Treatment of pulmonary embolism 2.0-3.0 Prevention of systemic embolism 2.0-3.0 HIGH RISK: Mechanical prosthetic valves 2.5-3.5 PT Coag (PPP) [Time] 26.4 s High 9.0 - 1 4.2 seconds AO HemoHub SS LDHon 10-27-2022 LDH 215 U/L Normal 120-246 [facility] ([place]) Comment on above: Performed By: #### C BC, JUANACRLOS, FT4, ANEU, CMP, ADIFF, LD, GFR, TSH, FT3 ####[address] [address] PROon 10-27-2022 PT Coag (PPP) [Time] 26.4 s High 9.0-14.2 [facility] ([place]) Comment on above: Performed By: #### P RO ####[facility] [place], [place] [address] PT International Ratio 2.3 Normal [facility] ([place]) Comment on above: Result Comment: [employer] (CHEST, 1992, 102:312S-25S)recommended therapeutic range for oral anticoagulant therapy is:LOW RISK: Prophylaxis of venous thrombosis INR: 2.0-3.0 Treatment of pulmonary embolism 2.0-3.0 Prevention of systemic embolism 2.0-3.0HIGH RISK: Mechanical prosthetic valves 2.5-3.5 Performed By: #### P RO ####[place] [address] [place], [place] [address] TSHon 10-27-2022 TSH 5.430 mIU/mL High 0.550-4.780 [facility] ([place]) Comment on above: Result Comment: No te - New Reference Range in effect 19 Performed By: #### C BC, JUANCARLOS, FT4, ANEU, CMP, ADIFF, LD, GFR, TSH, FT3 ####[address] [address] LABORATORYOrdered By: Anamaria Pandey on 10-21-2022 INR Coag (PPP) [Relative time] 2.6 {INR} Invalid Interpretation Code AO HemoHub SS Comment on above: Interpretive Data: T he [employer] (CHEST, 1991, 102:312S-25S) [...] Coag (PPP) [Time] 29.8 s High 9.0-14.2 [facility] ([place]) Comment on above: Performed By: #### P RO ####[place] [id number] [address] [place] [address] PT International Ratio 2.6 Normal [facility] ([place]) Comment on above: Result Comment: [employer] (CHEST, 1991, 102:312S-25S)recommended therapeutic range for oral anticoagulant therapy is:LOW RISK: Prophylaxis of venous thrombosis INR: 2.0-3.0 Treatment of pulmonary embolism 2.0-3.0 Prevention of systemic embolism 2.0-3.0HIGH RISK: Mechanical prosthetic valves 2.5-3.5 Performed By: #### P RO ####[address] [address] Office Visit (Cardiac Surger y)on 10-10-2022 Follow-up [...] (F12.91) rare Lives with 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 Allergies Medication Penicillins Recorded By: Dora Jolly; [...] CHEST 2 VIEW PA AND LAT Normal [facility] LABORATORYOrdered By: Ta Starkey on 10-06-2022 INR Coag (PPP) [Relative time] 2.7 {INR} Invalid Interpretation Code AO HemoHub SS Comment on above: Interpretive Data: Cindy briggs [employer] (CHEST, 1992, 102:312S-25S) [...] (S/P/Bld) [Vol rate/Area] ml/min/1.73sqm Invalid Interpretation Code [facility] Comment on above: Interpretive Data: GFR [...] [Vol rate/Area] 53 ml/min/1.73sqm Invalid Interpretation Code [facility] Comment on above: Interpretive Data: GFR [...] Clinic Note - Heme Onc-New Visit Normal [facility] Clinic Note - Intakeon 09-22 Clinic Note - Intake Normal [facility] Oncology Nurse Navigator-sec ond opinionon 09-19-2022 Oncology Nurse Navigator-second opinion Normal [facility] Electrocardiogram 12 Leadon 09-05-2022 Electrocardiogram 12 Lead Normal [facility] No Panel Informationon 09-05 [email or web address]&Date=05-09-2022&Chelsey e=[email or web address]&Elsa tType=ECG&Site=1&Output Type=PDF&Ext=PDF [facility] Work Phone: Normal sinus rhythm [facility] Work Phone: Abnormal [facility] Work Phone: [phone] [facility] Work Phone: [phone] [facility] Work Phone: [phone] [facility] Work Phone: 124 1 [facility] Work Phone: [phone] [facility] Work Phone: 11 1 [facility] Work Phone: 66 1 [facility] Work Phone: 100 1 [facility] Work Phone: 61 1 [facility] Work Phone: [phone] [facility] Work Phone: 114 1 [facility] Work Phone: [phone] 1 [facility] Work Phone: 63 1 [facility] Work Phone: Office Visit (Cardiology)on 09-05-2022 Follow-up [...] Status:Hold For - Scheduling,Exact Date; Requested for:Approx [id number]; Cardiac Rehab Referral Evaluation and Treatment Evaluate AND Treat Status: Hold For - Scheduling Requested for: [id number] Agreement : I agree to have my [...] 12 Lead; Status:Active - Perform Order; Requested for:[id number]; IO Event Monitor 30 days; Status:Active - Perform Order; Requested for:[id number]; Obstructive sleep apnea, adult Adult Sleep Medicine Referral Evaluation and Treatment Evaluate AND Treat Status: Hold For - Scheduling Requested for: [id number] SocHx: Current every day smoker Tobacco Use Screening; Status:Complete; Done: [id number] Patient Instructions 1. Right atrial mass. 3 [...] he presented with his pulmonary embolism at [place]. It happened postoperatively after his open heart [...] cardiac rehab which will be done in [facility] near his home. Echo 2 months 30-day event recorder 2 months return to see me 3-1/2 months. All records from the hospitalizations were reviewed. I personally reviewed multiple echoes and catheterizations. [place] of atrial flutter. He has obstructive sleep apnea. History of Present Illness I am seeing Lyndsay in hospital follow-up. Admitted to [facility] with a pulmonary embolism. He underwent Ecos. That he was found to be in atrial flutter. He had a BONNIE in preparation for cardioversion. On BONNIE 3 right atrial masses identified. Transferred to [facility]. Ultimately underwent open heart surgery with resection [...] or val (more content not included)... Normal [place] Tobacco Screening.on 023 Fall risk assessment a) No falls within the last year [facility] Work Phone: Tobacco use status CPHS b) No [facility] Work Phone: CBCon 08-29-2022 Erythrocyte distribution width (RBC) [Ratio] 15.0 % High 11.5 - 14.5 [facility] Comment on above: Performed By: #### C BC ####[id number] [place] [address] Hematocrit (Bld) [Volume fraction] 32.9 % Low 41.0 - 52.0 [facility] Comment on above: Performed By: #### C BC ####[id number] [place] [address] Hemoglobin (Bld) [Mass/Vol] 10.0 g/dL Low 13.5 - 17.5 [facility] Comment on above: Performed By: #### C BC ####[id number] [place] [address] MCHC (RBC) [Mass/Vol] 30.4 g/dL Low 32.0 - 36.0 [facility] Comment on above: Performed By: #### C BC ####[id number] [place] [address] MCV (RBC) [Entitic vol] 100 fL Normal 80 - 100 [facility] Comment on above: Performed By: #### C BC ####[id number] [place] [address] NUCLEATED RBC 0.0 /100 WBC Normal 0.0-0.0 [facility] Comment on above: Performed By: #### C BC ####[id number] [place] [address] Platelets (Bld) [#/Vol] 375 10*3/uL Normal 150 - 450 [facility] Comment on above: Performed By: #### C BC ####[id number] [place] [address] RBC 3.28 x10E12/L Low 4.50 - 5.90 [facility] Comment on above: Performed By: #### C BC ####[id number] [place] [address] WBC (Bld) [#/Vol] 10.0 10*3/uL Normal 4.4 - 11.3 [facility] Comment on above: Performed By: #### C BC ####[id number] [place] [address] Daily Progress Note-Cardiac Surgeryon 08-29-2022 Daily Progress Note-Cardiac Surgery Normal [facility] Daily Progress Note-Vascular Medicineon 08-29-2022 Daily Progress Note-Vascular Medicine Normal [facility] HEPARIN ASSAY,UFHon 08-30-19 23 HEPARIN ASSAY,UFH 0.5 IU/mL Normal [facility] Comment on above: Result Comment: The therapeutic reference range for UFH may be either 0.3-0.6 IU/mL or 0.3-0.7 IU/mL based on the clinical setting for anticoagulant therapy and the associated nomogram used. For heparin dosing guidelines based on clinical scenario and Heparin Assay results, please refer to local Pharmacy and the [facility] Guidelines for Anticoagulation therapy available on the [facility] intranet at:[email or web address]/[email or web address]_Guidelines_for_Anticoagu.aspx Performed By: #### H JESSICA ####[id number] [place] [address] Heparin assay, UFHon 023 Heparin unfractionated Chromogenic method Qn (PPP) 0.5 {IU/mL} [facility] Work Phone: Comment on above: The therapeutic refe rence range for UFH may be either 0.3-0.6 IU/mL or 0.3-0.7 IU/mL based on the clinical setting for anticoagulant therapy and the associated nomogram used. For heparin dosing guidelines based on clinical scenario and Heparin Assay results, please refer to local Pharmacy and the [facility] Guidelines for Anticoagulation therapy available on the [facility] intranet at:[email or web address]/Pages/[email or web address]_Guidelines_for_Anticoagu.aspx Laboratory - Coagulationon 0 08-29-2022 INR Coag (PPP) [Relative time] 2.9 {INR} above high threshold 0.9 - 1.1 [facility] [facility] Work Phone: PT Coag (PPP) [Time] 33.0 s above high threshold 9.8 - 12.8 [facility] Work Phone: Comment on above: Note new reference jose luis ch as of 08/02/2022 at 10:00am. Laboratory - Hematology and Cell countson 08-29-2022 Erythrocyte distribution width (RBC) [Ratio] 15.0 % above high threshold See Below [facility] Work Phone: Comment on above: Reference Range: 11. 5 - 14.5 Hematocrit (Bld) [Volume fraction] 32.9 % below low threshold See Below [facility] Work Phone: Comment on above: Reference Range: 41. 0 - 52.0 Hemoglobin (Bld) [Mass/Vol] 10.0 g/dL below low threshold See Below [facility] Work Phone: Comment on above: Reference Range: 13. 5 - 17.5 MCHC (RBC) [Mass/Vol] 30.4 g/dL below low threshold See Below [facility] Work Phone: Comment on above: Reference Range: 32. 0 - 36.0 MCV (RBC) [Entitic vol] 100 fL 80 - 100 [facility] Work Phone: Platelets (Bld) [#/Vol] 375 10*3/uL 150 - 450 [facility] Work Phone: RBC (Bld) [#/Vol] 3.28 {x10E12/L} below low threshold See Below [facility] Work Phone: Comment on above: Reference Range: 4.5 0 - 5.90 WBC (Bld) [#/Vol] 10.0 10*3/uL 4.4 - 11.3 [facility] Work Phone: MAGNESIUMon 08-29-2022 Magnesium [Mass/Vol] 2.11 mg/dL Normal 1.60 - 2.40 [facility] Comment on above: Performed By: #### M G ####[id number] [place] [address] Magnesium, Serumon 3 Magnesium [Mass/Vol] 2.11 mg/dL See Below [facility] Work Phone: Comment on above: Reference Range: 1.6 0 - 2.40 No Panel Informationon 08-29 0.0 {/100_WBC} 0.0-0.0 [facility] Work Phone: PT/INRon 08-29-2022 PT Coag (PPP) [Time] 33.0 s High 9.8 - 12.8 [facility] Comment on above: Result Comment: Note new reference range as of 08/02/2022 at 10:00am. Performed By: #### P TINR ####[id number] [place] [address] PT, INR 2.9 High 0.9 - 1.1 [facility] Comment on above: Performed By: #### P TINR ####[id number] [place] [address] RENAL FUNCTION PANELon 08-29 Albumin [Mass/Vol] 3.5 g/dL Normal 3.4 - 5.0 [facility] Comment on above: Performed By: #### R ENAL ####[id number] [place] [address] Anion gap [Moles/Vol] 14 mmol/L Normal 10 - 20 [facility] Comment on above: Performed By: #### R ENAL ####[id number] [place] [address] Calcium [Mass/Vol] 8.8 mg/dL Normal 8.6 - 10.6 [facility] Comment on above: Performed By: #### R ENAL ####[id number] [place] [address] Chloride [Moles/Vol] 106 mmol/L Normal 98 - 107 [facility] Comment on above: Performed By: #### R ENAL ####[id number] [place] [address] Creatinine [Mass/Vol] 1.49 mg/dL High 0.50 - 1.30 [facility] Comment on above: Performed By: #### R ENAL ####[id number] [place] [address] GFR/1.73 sq M.predicted among non-blacks MDRD (S/P/Bld) [Vol rate/Area] 59 mL/min/{1.73_m2} Abnormal >90 [facility] Comment on above: Result Comment: CALC ULATIONS OF ESTIMATED GFR ARE PERFORMED USING THE 2020 CKD-EPI STUDY REFIT EQUATION WITHOUT THE RACE VARIABLE FOR THE IDMS-TRACEABLE CREATININE METHODS.https://jasn.asnjournals.org/content//A SN.1907173234 Performed By: #### R ENAL ####[id number] [place] [address] Glucose [Mass/Vol] 96 mg/dL Normal 74 - 99 [facility] Comment on above: Performed By: #### R ENAL ####[id number] [place] [address] HCO3 (Bld) [Moles/Vol] 26 mmol/L Normal 21 - 32 [facility] Comment on above: Performed By: #### R ENAL ####[id number] [place] [address] Phosphate [Mass/Vol] 3.8 mg/dL Normal 2.5 - 4.9 [facility] Comment on above: Result Comment: The performance characteristics of phosphorus testing in heparinized plasma have been validated by the individual laboratory site where testing is performed. Testing on heparinized plasma is not approved by the FDA; however, such approval is not necessary. Performed By: #### R ENAL ####[id number] [place] [address] Potassium [Moles/Vol] 4.8 mmol/L Normal 3.5 - 5.3 [facility] Comment on above: Performed By: #### R ENAL ####[id number] [place] [address] Sodium [Moles/Vol] 141 mmol/L Normal 136 - 145 [facility] Comment on above: Performed By: #### R ENAL ####[id number] [place] [address] Urea nitrogen [Mass/Vol] 22 mg/dL Normal 6 - 23 [facility] Comment on above: Performed By: #### R ENAL ####[id number] [place] [address] Renal Function Panelon 08-29 Albumin BCP dye [Mass/Vol] 3.5 g/dL 3.4 - 5.0 [facility] Work Phone: Anion gap [Moles/Vol] 14 mmol/L 10 - 20 [facility] Work Phone: Calcium [Mass/Vol] 8.8 mg/dL 8.6 - 10.6 -Car [facility] Work Phone: Chloride [Moles/Vol] 106 mmol/L 98 - 107 -C ardiology -[place] Work Phone: CO2 [Moles/Vol] 26 mmol/L 21 - 32 -Cardio logy -[place] Work Phone: Creatinine [Mass/Vol] 1.49 mg/dL above high threshold See Below [facility] Work Phone: Comment on above: Reference Range: 0.5 0 - 1.30 Glucose [Mass/Vol] 96 mg/dL 74 - 99 -[facility] Work Phone: Phosphate [Mass/Vol] 3.8 mg/dL 2.5 - 4.9 -[facility] Work Phone: Comment on above: The performance chidi acteristics of phosphorus testing in heparinized plasma have been validated by the individual laboratory site where testing is performed. Testing on heparinized plasma is not approved by the FDA; however, such approval is not necessary. Potassium [Moles/Vol] 4.8 mmol/L 3.5 - 5.3 [facility] Work Phone: Sodium [Moles/Vol] 141 mmol/L 136 - 145 -[facility] [employer] [facility] Work Phone: Urea nitrogen [Mass/Vol] 22 mg/dL 6 - 23 [facility] Work Phone: Renal Function Panel 59 {mL/min/1.73m2} Abnormal >90 [facility] Work Phone: Comment on above: CALCULATIONS OF ISMA MATED GFR ARE PERFORMED USING THE 2020 CKD-EPI STUDY REFIT EQUATION WITHOUT THE RACE VARIABLE FOR THE IDMS-TRACEABLE CREATININE METHODS.https://jasn.asnjournals.org/content/early//A SN.9543660704 CBCon 08-28-2022 Erythrocyte distribution width (RBC) [Ratio] 14.6 % High 11.5 - 14.5 [facility] Comment on above: Performed By: #### C BC ####[id number] [place] [address] Hematocrit (Bld) [Volume fraction] 32.5 % Low 41.0 - 52.0 [facility] Comment on above: Performed By: #### C BC ####[id number] [place] [address] Hemoglobin (Bld) [Mass/Vol] 9.9 g/dL Low 13.5 - 17.5 [facility] Comment on above: Performed By: #### C BC ####[id number] [place] [address] MCHC (RBC) [Mass/Vol] 30.5 g/dL Low 32.0 - 36.0 [facility] Comment on above: Performed By: #### C BC ####[id number] [place] [address] MCV (RBC) [Entitic vol] 101 fL High 80 - 100 [facility] Comment on above: Performed By: #### C BC ####[id number] [place] [address] NUCLEATED RBC 0.0 /100 WBC Normal 0.0-0.0 [facility] Comment on above: Performed By: #### C BC ####[id number] [place] [address] Platelets (Bld) [#/Vol] 383 10*3/uL Normal 150 - 450 [facility] Comment on above: Performed By: #### C BC ####[id number] [place] [address] RBC 3.21 x10E12/L Low 4.50 - 5.90 [facility] Comment on above: Performed By: #### C BC ####[id number] [place] [address] WBC (Bld) [#/Vol] 8.9 10*3/uL Normal 4.4 - 11.3 [facility] Comment on above: Performed By: #### C ####[id number] [place] [address] Clinical Event Note-Epicardi al wireson 08-28-2022 Clinical Event Note-Epicardial wires Normal [facility] Daily Progress Note-Cardiac Surgeryon 08-28-2022 Daily Progress Note-Cardiac Surgery Normal [facility] Daily Progress Note-Vascular Medicineon 08-28-2022 Daily Progress Note-Vascular Medicine Normal [facility] Laboratory - Coagulationon 0 08-28-2022 INR Coag (PPP) [Relative time] 2.1 {INR} above high threshold 0.9 - 1.1 [facility] Work Phone: PT Coag (PPP) [Time] 23.8 s above high threshold 9.8 - 12.8 [facility] Work Phone: Comment on above: Note new reference r dima as of 08/02/2022 at 10:00am. Laboratory - Hematology and Cell countson 08-28-2022 Erythrocyte distribution width (RBC) [Ratio] 14.6 % above high threshold See Below [facility] Work Phone: Comment on above: Reference Range: 11. 5 - 14.5 Hematocrit (Bld) [Volume fraction] 32.5 % below low threshold See Below [facility] Work Phone: Comment on above: Reference Range: 41. 0 - 52.0 Hemoglobin (Bld) [Mass/Vol] 9.9 g/dL below low threshold See Below [facility] Work Phone: Comment on above: Reference Range: 13. 5 - 17.5 MCHC (RBC) [Mass/Vol] 30.5 g/dL below low threshold See Below [facility] Work Phone: Comment on above: Reference Range: 32. 0 - 36.0 MCV (RBC) [Entitic vol] 101 fL above high threshold 80 - 100 [facility] Work Phone: Platelets (Bld) [#/Vol] 383 10*3/uL 150 - 450 [facility] Work Phone: RBC (Bld) [#/Vol] 3.21 {x10E12/L} below low threshold See Below [facility] Work Phone: Comment on above: Reference Range: 4.5 0 - 5.90 WBC (Bld) [#/Vol] 8.9 10*3/uL 4.4 - 11.3 [facility] Work Phone: MAGNESIUMon 08-28-2022 Magnesium [Mass/Vol] 2.22 mg/dL Normal 1.60 - 2.40 [facility] Comment on above: Performed By: #### M G ####[id number] [place] [address] Magnesium, Serumon 3 Magnesium [Mass/Vol] 2.22 mg/dL See Below [facility] Work Phone: Comment on above: Reference Range: 1.6 0 - 2.40 No Panel Informationon 08-28 0.0 {/100_WBC} 0.0-0.0 [facility] Work Phone: PT/INRon 08-28-2022 PT Coag (PPP) [Time] 23.8 s High 9.8 - 12.8 [facility] Comment on above: Result Comment: Note new reference range as of 08/02/2022 at 10:00am. Performed By: #### P TINR ####[id number] [place] [address] PT, INR 2.1 High 0.9 - 1.1 [facility] Comment on above: Performed By: #### P TINR ####[id number] [place] [address] PROTHROMBIN TIME Canceled Normal [facility] Comment on above: Order Comment: TEST PT/INR WAS CANCELLED, 08/28/2022 08:22 NO SPECIMEN RECEIVED IN LAB. Result Comment: Note new reference range as of 08/02/2022 at 10:00am. Performed By: #### P TINR ####[id number] [place] [address] PT, INR Canceled Normal [facility] Comment on above: Order Comment: TEST PT/INR WAS CANCELLED, 08/28/2022 08:22 NO SPECIMEN RECEIVED IN LAB. Performed By: #### P TINR ####[id number] [place] [address] RENAL FUNCTION PANELon 08-28 Albumin [Mass/Vol] 3.6 g/dL Normal 3.4 - 5.0 [facility] Comment on above: Performed By: #### R ENAL ####[id number] [place] [address] Anion gap [Moles/Vol] 16 mmol/L Normal 10 - 20 [facility] Comment on above: Performed By: #### R ENAL ####[id number] [place] [address] Calcium [Mass/Vol] 8.8 mg/dL Normal 8.6 - 10.6 [facility] Comment on above: Performed By: #### R ENAL ####[id number] [place] [address] Chloride [Moles/Vol] 103 mmol/L Normal 98 - 107 [facility] Comment on above: Performed By: #### R ENAL ####[id number] [place] [address] Creatinine [Mass/Vol] 1.54 mg/dL High 0.50 - 1.30 [facility] Comment on above: Performed By: #### R ENAL ####[id number] [place] [address] GFR/1.73 sq M.predicted among non-blacks MDRD (S/P/Bld) [Vol rate/Area] 57 mL/min/{1.73_m2} Abnormal >90 [facility] Comment on above: Result Comment: CALC ULATIONS OF ESTIMATED GFR ARE PERFORMED USING THE 2020 CKD-EPI STUDY REFIT EQUATION WITHOUT THE RACE VARIABLE FOR THE IDMS-TRACEABLE CREATININE METHODS.https://jasn.asnjournals.org/content//A SN.0630461745 Performed By: #### R ENAL ####[id number] [place] [address] Glucose [Mass/Vol] 93 mg/dL Normal 74 - 99 [facility] Comment on above: Performed By: #### R ENAL ####[id number] [place] [address] HCO3 (Bld) [Moles/Vol] 27 mmol/L Normal 21 - 32 [facility] Comment on above: Performed By: #### R ENAL ####[id number] [place] [address] Phosphate [Mass/Vol] 3.3 mg/dL Normal 2.5 - 4.9 [facility] Comment on above: Result Comment: The performance characteristics of phosphorus testing in heparinized plasma have been validated by the individual laboratory site where testing is performed. Testing on heparinized plasma is not approved by the FDA; however, such approval is not necessary. Performed By: #### R ENAL ####[id number] [place] [address] Potassium [Moles/Vol] 4.6 mmol/L Normal 3.5 - 5.3 [facility] Comment on above: Performed By: #### R ENAL ####[id number] [place] [address] Sodium [Moles/Vol] 141 mmol/L Normal 136 - 145 [facility] Comment on above: Performed By: #### R ENAL ####[id number] [place] [address] Urea nitrogen [Mass/Vol] 25 mg/dL High 6 - 23 [facility] Comment on above: Performed By: #### R ENAL ####[id number] [place] [address] Renal Function Panelon 08-28 Albumin BCP dye [Mass/Vol] 3.6 g/dL 3.4 - 5.0 [facility] [facility] [employer] Work Phone: Anion gap [Moles/Vol] 16 mmol/L 10 - 20 [facility] Work Phone: Calcium [Mass/Vol] 8.8 mg/dL 8.6 - 10.6 [facility] Work Phone: Chloride [Moles/Vol] 103 mmol/L 98 - 107 -[employer] arIKOTECHology -[employer] Work Phone: CO2 [Moles/Vol] 27 mmol/L 21 - 32 [facility] [facility] Work Phone: Creatinine [Mass/Vol] 1.54 mg/dL above high threshold See Below [facility] Work Phone: Comment on above: Reference Range: 0.5 0 - 1.30 Glucose [Mass/Vol] 93 mg/dL 74 - 99 [employer] Work Phone: Phosphate [Mass/Vol] 3.3 mg/dL 2.5 - 4.9 [employer] Work Phone: Comment on above: The performance chidi acteristics of phosphorus testing in heparinized plasma have been validated by the individual laboratory site where testing is performed. Testing on heparinized plasma is not approved by the FDA; however, such approval is not necessary. Potassium [Moles/Vol] 4.6 mmol/L 3.5 - 5.3 [facility] Work Phone: Sodium [Moles/Vol] 141 mmol/L 136 - 145 [facility] Work Phone: Urea nitrogen [Mass/Vol] 25 mg/dL above high threshold 6 - 23 [facility] Work Phone: Renal Function Panel 57 {mL/min/1.73m2} Abnormal >90 [facility] Work Phone: Comment on above: CALCULATIONS OF ISMA MATED GFR ARE PERFORMED USING THE 2020 CKD-EPI STUDY REFIT EQUATION WITHOUT THE RACE VARIABLE FOR THE IDMS-TRACEABLE CREATININE METHODS.https://jasn.asnjournals.org/content//A SN.3700296238 CBCon 08-27-2022 Erythrocyte distribution width (RBC) [Ratio] 14.4 % Normal 11.5 - 14.5 [facility] Comment on above: Performed By: #### C BC ####[id number] [place] [address] Hematocrit (Bld) [Volume fraction] 33.1 % Low 41.0 - 52.0 [facility] Comment on above: Performed By: #### C BC ####[id number] [place] [address] Hemoglobin (Bld) [Mass/Vol] 10.1 g/dL Low 13.5 - 17.5 [facility] Comment on above: Performed By: #### C BC ####[id number] [place] [address] MCHC (RBC) [Mass/Vol] 30.5 g/dL Low 32.0 - 36.0 [facility] Comment on above: Performed By: #### C BC ####[id number] [place] [address] MCV (RBC) [Entitic vol] 102 fL High 80 - 100 [facility] Comment on above: Performed By: #### C BC ####[id number] [place] [address] NUCLEATED RBC 0.0 /100 WBC Normal 0.0-0.0 [facility] Comment on above: Performed By: #### C BC ####[id number] [place] [address] Platelets (Bld) [#/Vol] 390 10*3/uL Normal 150 - 450 [facility] Comment on above: Performed By: #### C BC ####[id number] [place] [address] RBC 3.26 x10E12/L Low 4.50 - 5.90 [facility] Comment on above: Performed By: #### C BC ####[id number] [place] [address] WBC (Bld) [#/Vol] 9.4 10*3/uL Normal 4.4 - 11.3 [facility] Comment on above: Performed By: #### C BC ####[id number] [place] [address] Daily Progress Note-Cardiac Surgeryon 08-27-2022 Daily Progress Note-Cardiac Surgery Normal [facility] Daily Progress Note-Vascular Medicineon 08-27-2022 Daily Progress Note-Vascular Medicine Normal [facility] HEPARIN ASSAY,UFHon 08-28-19 23 HEPARIN ASSAY,UFH 0.4 IU/mL Normal [facility] Comment on above: Result Comment: The therapeutic reference range for UFH may be either 0.3-0.6 IU/mL or 0.3-0.7 IU/mL based on the clinical setting for anticoagulant therapy and the associated nomogram used. For heparin dosing guidelines based on clinical scenario and Heparin Assay results, please refer to local Pharmacy and the [facility] Guidelines for Anticoagulation therapy available on the [facility] intranet at:[email or web address]_Guidelines_for_[email or web address].aspx Performed By: #### H AUF ####[id number] [place] [address] Heparin assay, UFHon 023 Heparin unfractionated Chromogenic method Qn (PPP) 0.4 {IU/mL} -[facility] Work Phone: Comment on above: The therapeutic refe rence range for UFH may be either 0.3-0.6 IU/mL or 0.3-0.7 IU/mL based on the clinical setting for anticoagulant therapy and the associated nomogram used. For heparin dosing guidelines based on clinical scenario and Heparin Assay results, please refer to local Pharmacy and the [facility] Guidelines for Anticoagulation therapy available on the [facility] intranet at:[email or web address]_Guidelines_[email or web address] Laboratory - Coagulationon 0 08-27-2022 INR Coag (PPP) [Relative time] 1.5 {INR} above high threshold 0.9 - 1.1 [facility] Work Phone: PT Coag (PPP) [Time] 16.5 s above high threshold 9.8 - 12.8 [facility] Work Phone: Comment on above: Note new reference r dima as of 08/02/2022 at 10:00am. INR Coag (PPP) [Relative time] Canceled [facility] Work Phone: PT Coag (PPP) [Time] Canceled MP-C ardiology -[place] Work Phone: Comment on above: Note new reference r dima as of 08/02/2022 at 10:00am. Laboratory - Hematology and Cell countson 08-27-2022 Erythrocyte distribution width (RBC) [Ratio] 14.4 % See Below [facility] Work Phone: Comment on above: Reference Range: 11. 5 - 14.5 Hematocrit (Bld) [Volume fraction] 33.1 % below low threshold See Below [facility] Work Phone: Comment on above: Reference Range: 41. 0 - 52.0 Hemoglobin (Bld) [Mass/Vol] 10.1 g/dL below low threshold See Below [facility] Work Phone: Comment on above: Reference Range: 13. 5 - 17.5 MCHC (RBC) [Mass/Vol] 30.5 g/dL below low threshold See Below [facility] Work Phone: Comment on above: Reference Range: 32. 0 - 36.0 MCV (RBC) [Entitic vol] 102 fL above high threshold 80 - 100 [facility] Work Phone: Platelets (Bld) [#/Vol] 390 10*3/uL 150 - 450 [facility] Work Phone: RBC (Bld) [#/Vol] 3.26 {x10E12/L} below low threshold See Below [facility] Work Phone: Comment on above: Reference Range: 4.5 0 - 5.90 WBC (Bld) [#/Vol] 9.4 10*3/uL 4.4 - 11.3 [facility] Work Phone: MAGNESIUMon 08-27-2022 Magnesium [Mass/Vol] 2.26 mg/dL Normal 1.60 - 2.40 [facility] Comment on above: Performed By: #### M G ####[id number] [place] [address] Magnesium, Serumon Magnesium [Mass/Vol] 2.26 mg/dL See Below -C ardiology -[place] Work Phone: Comment on above: Reference Range: 1.6 0 - 2.40 No Panel Informationon 08-27 0.0 {/100_WBC} 0.0-0.0 -Cardiol ogy -[place] Work Phone: PT/INRon 08-27-2022 PT Coag (PPP) [Time] 16.5 s High 9.8 - 12.8 [facility] Comment on above: Result Comment: Note new reference range as of 08/02/2022 at 10:00am. Performed By: #### P TINR ####[id number] [place] [address] PT, INR 1.5 High 0.9 - 1.1 [facility] Comment on above: Performed By: #### P TINR ####[id number] [place] [address] RENAL FUNCTION PANELon 08-27 Albumin [Mass/Vol] 3.6 g/dL Normal 3.4 - 5.0 [facility] Comment on above: Performed By: #### R ENAL ####[id number] [place] [address] Anion gap [Moles/Vol] 15 mmol/L Normal 10 - 20 [facility] Comment on above: Performed By: #### R ENAL ####[id number] [place] [address] Calcium [Mass/Vol] 9.0 mg/dL Normal 8.6 - 10.6 [facility] Comment on above: Performed By: #### R ENAL ####[id number] [place] [address] Chloride [Moles/Vol] 100 mmol/L Normal 98 - 107 [facility] Comment on above: Performed By: #### R ENAL ####[id number] [place] [address] Creatinine [Mass/Vol] 1.73 mg/dL High 0.50 - 1.30 [facility] Comment on above: Performed By: #### R ENAL ####[id number] [place] [address] GFR/1.73 sq M.predicted among non-blacks MDRD (S/P/Bld) [Vol rate/Area] 50 mL/min/{1.73_m2} Abnormal >90 [facility] Comment on above: Result Comment: CALC ULATIONS OF ESTIMATED GFR ARE PERFORMED USING THE 2020 CKD-EPI STUDY REFIT EQUATION WITHOUT THE RACE VARIABLE FOR THE IDMS-TRACEABLE CREATININE METHODS.https://jasn.asnjournals.org/content/early/A SN.8581405682 Performed By: #### R ENAL ####[id number] [place] [address] Glucose [Mass/Vol] 99 mg/dL Normal 74 - 99 [facility] Comment on above: Performed By: #### R ENAL ####[id number] [place] [address] HCO3 (Bld) [Moles/Vol] 29 mmol/L Normal 21 - 32 [facility] Comment on above: Performed By: #### R ENAL ####[id number] [place] [address] Phosphate [Mass/Vol] 4.7 mg/dL Normal 2.5 - 4.9 [facility] Comment on above: Result Comment: The performance characteristics of phosphorus testing in heparinized plasma have been validated by the individual laboratory site where testing is performed. Testing on heparinized plasma is not approved by the FDA; however, such approval is not necessary. Performed By: #### R ENAL ####[id number] [place] [address] Potassium [Moles/Vol] 4.6 mmol/L Normal 3.5 - 5.3 [facility] Comment on above: Performed By: #### R ENAL ####[id number] [place] [address] Sodium [Moles/Vol] 139 mmol/L Normal 136 - 145 [facility] Comment on above: Performed By: #### R ENAL ####[id number] [place] [address] Urea nitrogen [Mass/Vol] 29 mg/dL High 6 - 23 [facility] Comment on above: Performed By: #### R ENAL ####[id number] [place] [address] Renal Function Panelon 08-27 Albumin BCP dye [Mass/Vol] 3.6 g/dL 3.4 - 5.0 [facility] Work Phone: Anion gap [Moles/Vol] 15 mmol/L 10 - 20 [facility] Work Phone: Calcium [Mass/Vol] 9.0 mg/dL 8.6 - 10.6 [facility] Work Phone: Chloride [Moles/Vol] 100 mmol/L 98 - 107 MP-[facility] ardiology -[place] Work Phone: CO2 [Moles/Vol] 29 mmol/L 21 - 32 [facility]io logy [facility] Work Phone: Creatinine [Mass/Vol] 1.73 mg/dL above high threshold See Below -Cardiology [facility] Work Phone: Comment on above: Reference Range: 0.5 0 - 1.30 Glucose [Mass/Vol] 99 mg/dL 74 - 99 -[facility] Work Phone: Phosphate [Mass/Vol] 4.7 mg/dL 2.5 - 4.9 -C ardi[facility] -[place] Work Phone: Comment on above: The performance chidi acteristics of phosphorus testing in heparinized plasma have been validated by the individual laboratory site where testing is performed. Testing on heparinized plasma is not approved by the FDA; however, such approval is not necessary. Potassium [Moles/Vol] 4.6 mmol/L 3.5 - 5.3 - [facility] Work Phone: Sodium [Moles/Vol] 139 mmol/L 136 - 145 -[facility] Work Phone: Urea nitrogen [Mass/Vol] 29 mg/dL above high threshold 6 - 23 -[facility] Work Phone: Renal Function Panel 50 {mL/min/1.73m2} Abnormal >90 -[facility] Work Phone: Comment on above: CALCULATIONS OF ISMA MATED GFR ARE PERFORMED USING THE 2020 CKD-EPI STUDY REFIT EQUATION WITHOUT THE RACE VARIABLE FOR THE IDMS-TRACEABLE CREATININE METHODS.https://jasn.asnjournals.org/content/early/A .9928399414 CBCon 08-26-2022 Erythrocyte distribution width (RBC) [Ratio] 14.2 % Normal 11.5 - 14.5 [facility] Comment on above: Performed By: #### C BC ####[id number] [place] [address] Hematocrit (Bld) [Volume fraction] 33.6 % Low 41.0 - 52.0 [facility] Comment on above: Performed By: #### C BC ####[id number] [place] [address] Hemoglobin (Bld) [Mass/Vol] 10.1 g/dL Low 13.5 - 17.5 [facility] Comment on above: Performed By: #### C BC ####[id number] [place] [address] MCHC (RBC) [Mass/Vol] 30.1 g/dL Low 32.0 - 36.0 [facility] Comment on above: Performed By: #### C BC ####[id number] [place] [address] MCV (RBC) [Entitic vol] 103 fL High 80 - 100 [facility] Comment on above: Performed By: #### C BC ####[id number] [place] [address] NUCLEATED RBC 0.0 /100 WBC Normal 0.0-0.0 [facility] Comment on above: Performed By: #### C BC ####[id number] [place] [address] Platelets (Bld) [#/Vol] 354 10*3/uL Normal 150 - 450 [facility] Comment on above: Performed By: #### C BC ####[id number] [place] [address] RBC 3.27 x10E12/L Low 4.50 - 5.90 [facility] Comment on above: Performed By: #### C BC ####[id number] [place] [address] WBC (Bld) [#/Vol] 8.6 10*3/uL Normal 4.4 - 11.3 [facility] Comment on above: Performed By: #### C BC ####[id number] [place] [address] Daily Progress Note-Cardiac Surgeryon 08-26-2022 Daily Progress Note-Cardiac Surgery Normal [facility] Daily Progress Note-Vascular Medicineon 08-26-2022 Daily Progress Note-Vascular Medicine Normal [facility] HEPARIN ASSAY,UFHon 08-27-19 23 HEPARIN ASSAY,UFH 0.4 IU/mL Normal [facility] Comment on above: Result Comment: The therapeutic reference range for UFH may be either 0.3-0.6 IU/mL or 0.3-0.7 IU/mL based on the clinical setting for anticoagulant therapy and the associated nomogram used. For heparin dosing guidelines based on clinical scenario and Heparin Assay results, please refer to local Pharmacy and [facility] Guidelines for Anticoagulation therapy available on the [facility] intranet at:[email or web address]_Guidelines_[email or web address].aspx Performed By: #### H AUF ####[id number] [place] [address] Heparin assay, UFHon 023 Heparin unfractionated Chromogenic method Qn (PPP) 0.4 {IU/mL} [employer] Work Phone: Comment on above: The therapeutic refe rence range for UFH may be either 0.3-0.6 IU/mL or 0.3-0.7 IU/mL based on the clinical setting for anticoagulant therapy and the associated nomogram used. For heparin dosing guidelines based on clinical scenario and Heparin Assay results, please refer to local Pharmacy and [facility] Guidelines for Anticoagulation therapy available on the [facility] intranet at:[email or web address]_Guidelines_[email or web address] Laboratory - Coagulationon 0 08-26-2022 INR Coag (PPP) [Relative time] 1.4 {INR} above high threshold 0.9 - 1.1 [employer] Work Phone: PT Coag (PPP) [Time] 15.9 s above high threshold 9.8 - 12.8 [facility] Work Phone: Comment on above: Note new reference r dima as of 08/02/2022 at 10:00am. Laboratory - Hematology and Cell countson 08-26-2022 Erythrocyte distribution width (RBC) [Ratio] 14.2 % See Below [facility] Work Phone: Comment on above: Reference Range: 11. 5 - 14.5 Hematocrit (Bld) [Volume fraction] 33.6 % below low threshold See Below -Cardiology [facility] Work Phone: Comment on above: Reference Range: 41. 0 - 52.0 Hemoglobin (Bld) [Mass/Vol] 10.1 g/dL below low threshold See Below -Cardiology [facility] Work Phone: Comment on above: Reference Range: 13. 5 - 17.5 MCHC (RBC) [Mass/Vol] 30.1 g/dL below low threshold See Below -Cardiology [facility] Work Phone: Comment on above: Reference Range: 32. 0 - 36.0 MCV (RBC) [Entitic vol] 103 fL above high threshold 80 - 100 -[facility]iology [facility] Work Phone: Platelets (Bld) [#/Vol] 354 10*3/uL 150 - 450 -[facility]iology -[place] Work Phone: RBC (Bld) [#/Vol] 3.27 {x10E12/L} below low threshold See Below -Cardiology [facility] Work Phone: Comment on above: Reference Range: 4.5 0 - 5.90 WBC (Bld) [#/Vol] 8.6 10*3/uL 4.4 - 11.3 -Car diology -[place] Work Phone: MAGNESIUMon 08-26-2022 Magnesium [Mass/Vol] 2.34 mg/dL Normal 1.60 - 2.40 [facility] Comment on above: Performed By: #### M G ####[id number] [place] [address] Magnesium, Serumon 3 Magnesium [Mass/Vol] 2.34 mg/dL See Below -C ardiology -[place] Work Phone: Comment on above: Reference Range: 1.6 0 - 2.40 No Panel Informationon 08-26 0.0 {/100_WBC} 0.0-0.0 MP-Cardiol mary kateulises -[place] Work Phone: Nutrition Therapy-Follow Upo n 08-26-2022 Nutrition Therapy-Follow Up Normal [facility] PT/INRon 08-26-2022 PROTHROMBIN TIME Canceled Normal [facility] Comment on above: Order Comment: TEST PT/INR WAS CANCELLED, 08/26/2022 09:13 NO SPECIMEN RECEIVED IN LAB. Result Comment: Note new reference range as of 08/02/2022 at 10:00am. Performed By: #### P TINR ####[id number] [place] [address] PT, INR Canceled Normal [facility] Comment on above: Order Comment: TEST PT/INR WAS CANCELLED, 08/26/2022 09:13 NO SPECIMEN RECEIVED IN LAB. Performed By: #### P TINR ####[id number] [place] [address] PT Coag (PPP) [Time] 15.9 s High 9.8 - 12.8 [facility] Comment on above: Result Comment: Note new reference range as of 08/02/2022 at 10:00am. Performed By: #### P TINR ####[id number] [place] [address] PT, INR 1.4 High 0.9 - 1.1 [facility] Comment on above: Performed By: #### P TINR ####[id number] [place] [address] RENAL FUNCTION PANELon 08-26 Albumin [Mass/Vol] 3.6 g/dL Normal 3.4 - 5.0 [facility] Comment on above: Performed By: #### R ENAL ####[id number] [place] [address] Anion gap [Moles/Vol] 14 mmol/L Normal - 20 [facility] Comment on above: Performed By: #### R ENAL ####[id number] [place] [address] Calcium [Mass/Vol] 9.1 mg/dL Normal 8.6 - 10.6 [facility] Comment on above: Performed By: #### R ENAL ####[id number] [place] [address] Chloride [Moles/Vol] 97 mmol/L Low 98 - 107 [facility] Comment on above: Performed By: #### R ENAL ####[id number] [place] [address] Creatinine [Mass/Vol] 1.70 mg/dL High 0.50 - 1.30 [facility] Comment on above: Performed By: #### R ENAL ####[id number] [place] [address] GFR/1.73 sq M.predicted among non-blacks MDRD (S/P/Bld) [Vol rate/Area] 51 mL/min/{1.73_m2} Abnormal >90 [facility] Comment on above: Result Comment: CALC ULATIONS OF ESTIMATED GFR ARE PERFORMED USING THE 2020 CKD-EPI STUDY REFIT EQUATION WITHOUT THE RACE VARIABLE FOR THE IDMS-TRACEABLE CREATININE METHODS.https://jasn.asnjournals.org/content/early/A SN.4514022796 Performed By: #### R ENAL ####[id number] [place] [address] Glucose [Mass/Vol] 102 mg/dL High 74 - 99 [facility] Comment on above: Performed By: #### R ENAL ####[id number] [place] [address] HCO3 (Bld) [Moles/Vol] 32 mmol/L Normal 21 - 32 [facility] Comment on above: Performed By: #### R ENAL ####[id number] [place] [address] Phosphate [Mass/Vol] 4.4 mg/dL Normal 2.5 - 4.9 [facility] Comment on above: Result Comment: The performance characteristics of phosphorus testing in heparinized plasma have been validated by the individual laboratory site where testing is performed. Testing on heparinized plasma is not approved by the FDA; however, such approval is not necessary. Performed By: #### R ENAL ####[id number] [place] [address] Potassium [Moles/Vol] 5.0 mmol/L Normal 3.5 - 5.3 [facility] Comment on above: Performed By: #### R ENAL ####[id number] [place] [address] Sodium [Moles/Vol] 138 mmol/L Normal 136 - 145 [facility] Comment on above: Performed By: #### R ENAL ####[id number] [place] [address] Urea nitrogen [Mass/Vol] 29 mg/dL High 6 - 23 [facility] Comment on above: Performed By: #### R ENAL ####[id number] [place] [address] Renal Function Panelon 08-26 Albumin BCP dye [Mass/Vol] 3.6 g/dL 3.4 - 5.0 [facility] Work Phone: Anion gap [Moles/Vol] 14 mmol/L 10 - 20 [facility] Work Phone: Calcium [Mass/Vol] 9.1 mg/dL 8.6 - 10.6 [facility] Work Phone: Chloride [Moles/Vol] 97 mmol/L below low threshold 98 - 107 [facility] Work Phone: CO2 [Moles/Vol] 32 mmol/L 21 - 32 MP-Cardio logy -[place] Work Phone: Creatinine [Mass/Vol] 1.70 mg/dL above high threshold See Below [facility] Work Phone: Comment on above: Reference Range: 0.5 0 - 1.30 Glucose [Mass/Vol] 102 mg/dL above high threshold 74 - 99 [facility] Work Phone: Phosphate [Mass/Vol] 4.4 mg/dL 2.5 - 4.9 MP-[facility] ardiology -[place] Work Phone: Comment on above: The performance chidi acteristics of phosphorus testing in heparinized plasma have been validated by the individual laboratory site where testing is performed. Testing on heparinized plasma is not approved by the FDA; however, such approval is not necessary. Potassium [Moles/Vol] 5.0 mmol/L 3.5 - 5.3 [facility] Work Phone: Sodium [Moles/Vol] 138 mmol/L 136 - 145 [facility] Work Phone: Urea nitrogen [Mass/Vol] 29 mg/dL above high threshold 6 - 23 [facility] Work Phone: Renal Function Panel 51 {mL/min/1.73m2} Abnormal >90 [facility] Work Phone: Comment on above: CALCULATIONS OF ISMA MATED GFR ARE PERFORMED USING THE 2020 CKD-EPI STUDY REFIT EQUATION WITHOUT THE RACE VARIABLE FOR THE IDMS-TRACEABLE CREATININE METHODS.https://jasn.asnjournals.org/content//A .1752681106 CBCon 08-25-2022 Erythrocyte distribution width (RBC) [Ratio] 14.1 % Normal 11.5 - 14.5 [facility] Comment on above: Performed By: #### C BC ####[id number] [place] [address] Hematocrit (Bld) [Volume fraction] 32.8 % Low 41.0 - 52.0 [facility] Comment on above: Performed By: #### C BC ####[id number] [place] [address] Hemoglobin (Bld) [Mass/Vol] 10.2 g/dL Low 13.5 - 17.5 [facility] Comment on above: Performed By: #### C BC ####[id number] [place] [address] MCHC (RBC) [Mass/Vol] 31.1 g/dL Low 32.0 - 36.0 [facility] Comment on above: Performed By: #### C BC ####[id number] [place] [address] MCV (RBC) [Entitic vol] 99 fL Normal 80 - 100 [facility] Comment on above: Performed By: #### C BC ####[id number] [place] [address] NUCLEATED RBC 0.0 /100 WBC Normal 0.0-0.0 [facility] Comment on above: Performed By: #### C BC ####[id number] [place] [address] Platelets (Bld) [#/Vol] 316 10*3/uL Normal 150 - 450 [facility] Comment on above: Performed By: #### C BC ####[id number] [place] [address] RBC 3.31 x10E12/L Low 4.50 - 5.90 [facility] Comment on above: Performed By: #### C BC ####[id number] [place] [address] WBC (Bld) [#/Vol] 8.6 10*3/uL Normal 4.4 - 11.3 [facility] Comment on above: Performed By: #### C BC ####[id number] [place] [address] Daily Progress Note-Cardiac Surgeryon 08-25-2022 Daily Progress Note-Cardiac Surgery Normal [facility] Daily Progress Note-Supporti ve Oncologyon 08-25-2022 Daily Progress Note-Supportive Oncology Normal [facility] Daily Progress Note-Vascular Medicineon 08-25-2022 Daily Progress Note-Vascular Medicine Normal [facility] HEPARIN ASSAY,UFHon 08-26-19 23 HEPARIN ASSAY,UFH 0.3 IU/mL Normal [facility] Comment on above: Result Comment: The therapeutic reference range for UFH may be either 0.3-0.6 IU/mL or 0.3-0.7 IU/mL based on the clinical setting for anticoagulant therapy and the associated nomogram used. For heparin dosing guidelines based on clinical scenario and Heparin Assay results, please refer to local Pharmacy and the [facility] Guidelines for Anticoagulation therapy available on the [facility] intranet at:[email or web address]_Guidelines_[email or web address] Performed By: #### H AUF ####[id number] [place] [address] Heparin assay, UFHon 023 Heparin unfractionated Chromogenic method Qn (PPP) 0.3 {IU/mL} [facility] Work Phone: Comment on above: The therapeutic refe rence range for UFH may be either 0.3-0.6 IU/mL or 0.3-0.7 IU/mL based on the clinical setting for anticoagulant therapy and the associated nomogram used. For heparin dosing guidelines based on clinical scenario and Heparin Assay results, please refer to local Pharmacy and [facility] Guidelines for Anticoagulation therapy available on the [facility] intranet at:[email or web address]_Guidelines_[email or web address] Laboratory - Coagulationon 0 08-25-2022 INR Coag (PPP) [Relative time] Canceled [facility] Work Phone: INR Coag (PPP) [Relative time] 1.3 {INR} above high threshold 0.9 - 1.1 [facility] Work Phone: PT Coag (PPP) [Time] Canceled [facility] ardiology [facility] Work Phone: Comment on above: Note new reference r dima as of 08/02/2022 at 10:00am. PT Coag (PPP) [Time] 14.4 s above high threshold 9.8 - 12.8 [facility] Work Phone: Comment on above: Note new reference r dima as of 08/02/2022 at 10:00am. Laboratory - Hematology and Cell countson 08-25-2022 Erythrocyte distribution width (RBC) [Ratio] 14.1 % See Below -[facility] Work Phone: Comment on above: Reference Range: 11. 5 - 14.5 Hematocrit (Bld) [Volume fraction] 32.8 % below low threshold See Below -[facility] Work Phone: Comment on above: Reference Range: 41. 0 - 52.0 Hemoglobin (Bld) [Mass/Vol] 10.2 g/dL below low threshold See Below -[facility] Work Phone: Comment on above: Reference Range: 13. 5 - 17.5 MCHC (RBC) [Mass/Vol] 31.1 g/dL below low threshold See Below -[facility] Work Phone: Comment on above: Reference Range: 32. 0 - 36.0 MCV (RBC) [Entitic vol] 99 fL 80 - 100 -[facility] Work Phone: Platelets (Bld) [#/Vol] 316 10*3/uL 150 - 450 -[facility] Work Phone: RBC (Bld) [#/Vol] 3.31 {x10E12/L} below low threshold See Below -[facility] Work Phone: Comment on above: Reference Range: 4.5 0 - 5.90 WBC (Bld) [#/Vol] 8.6 10*3/uL 4.4 - 11.3 -Car diology -[place] Work Phone: MAGNESIUMon 08-25-2022 Magnesium [Mass/Vol] 2.23 mg/dL Normal 1.60 - 2.40 [facility] Comment on above: Performed By: #### M G ####[id number] [place] [address] Magnesium, Serumon 3 Magnesium [Mass/Vol] 2.23 mg/dL See Below -C ardiology [facility] Work Phone: Comment on above: Reference Range: 1.6 0 - 2.40 No Panel Informationon 08-25 0.0 {/100_WBC} 0.0-0.0 [facility]iol [facility] [place] Work Phone: Order Reconciliationon 08-25 Order Reconciliation Normal [facility] PT/INRon 08-25-2022 PT Coag (PPP) [Time] 14.4 s High 9.8 - 12.8 [facility] Comment on above: Result Comment: Note new reference range as of 08/02/2022 at 10:00am. Performed By: #### P TINR ####[id number] [place] [address] PT, INR 1.3 High 0.9 - 1.1 [facility] Comment on above: Performed By: #### P TINR ####[id number] [place] [address] RENAL FUNCTION PANELon 08-25 Albumin [Mass/Vol] 3.6 g/dL Normal 3.4 - 5.0 [facility] Comment on above: Performed By: #### R ENAL ####[id number] [place] [address] Anion gap [Moles/Vol] 12 mmol/L Normal 10 - 20 [facility] Comment on above: Performed By: #### R ENAL ####[id number] [place] [address] Calcium [Mass/Vol] 8.9 mg/dL Normal 8.6 - 10.6 [facility] Comment on above: Performed By: #### R ENAL ####[id number] [place] [address] Chloride [Moles/Vol] 94 mmol/L Low 98 - 107 [facility] Comment on above: Performed By: #### R ENAL ####[id number] [place] [address] Creatinine [Mass/Vol] 1.37 mg/dL High 0.50 - 1.30 [facility] Comment on above: Performed By: #### R ENAL ####[id number] [place] [address] GFR/1.73 sq M.predicted among non-blacks MDRD (S/P/Bld) [Vol rate/Area] 66 mL/min/{1.73_m2} Normal >90 [facility] Comment on above: Result Comment: CALC ULATIONS OF ESTIMATED GFR ARE PERFORMED USING THE 2020 CKD-EPI STUDY REFIT EQUATION WITHOUT THE RACE VARIABLE FOR THE IDMS-TRACEABLE CREATININE METHODS.https://jasn.asnjournals.org/content/early/A SN.7860133205 Performed By: #### R ENAL ####[id number] [place] [address] Glucose [Mass/Vol] 109 mg/dL High 74 - 99 [facility] Comment on above: Performed By: #### R ENAL ####[id number] [place] [address] HCO3 (Bld) [Moles/Vol] 36 mmol/L High 21 - 32 [facility] Comment on above: Performed By: #### R ENAL ####[id number] [place] [address] Phosphate [Mass/Vol] 4.5 mg/dL Normal 2.5 - 4.9 [facility] Comment on above: Result Comment: The performance characteristics of phosphorus testing in heparinized plasma have been validated by the individual laboratory site where testing is performed. Testing on heparinized plasma is not approved by the FDA; however, such approval is not necessary. Performed By: #### R ENAL ####[id number] [place] [address] Potassium [Moles/Vol] 4.2 mmol/L Normal 3.5 - 5.3 [facility] Comment on above: Performed By: #### R ENAL ####[id number] [place] [address] Sodium [Moles/Vol] 138 mmol/L Normal 136 - 145 [facility] Comment on above: Performed By: #### R ENAL ####[id number] [place] [address] Urea nitrogen [Mass/Vol] 28 mg/dL High 6 - 23 [facility] Comment on above: Performed By: #### R ENAL ####[id number] [place] [address] Rehab Note-physical therapis t - Student physical therapist\\.br\\on 08-25-2022 Rehab Note-physical therapist - Student physical therapist\\.br\\ Normal [facility] Renal Function Panelon 08-25 Albumin BCP dye [Mass/Vol] 3.6 g/dL 3.4 - 5.0 [facility] Work Phone: Anion gap [Moles/Vol] 12 mmol/L 10 - 20 [facility] Work Phone: Calcium [Mass/Vol] 8.9 mg/dL 8.6 - 10.6 [facility] Work Phone: Chloride [Moles/Vol] 94 mmol/L below low threshold 98 - 107 [facility] Work Phone: CO2 [Moles/Vol] 36 mmol/L above high threshold 21 - 32 [facility] Work Phone: Creatinine [Mass/Vol] 1.37 mg/dL above high threshold See Below [facility] Work Phone: Comment on above: Reference Range: 0.5 0 - 1.30 Glucose [Mass/Vol] 109 mg/dL above high threshold 74 - 99 [facility] Work Phone: Phosphate [Mass/Vol] 4.5 mg/dL 2.5 - 4.9 [facility]di[facility] Work Phone: Comment on above: The performance chidi acteristics of phosphorus testing in heparinized plasma have been validated by the individual laboratory site where testing is performed. Testing on heparinized plasma is not approved by the FDA; however, such approval is not necessary. Potassium [Moles/Vol] 4.2 mmol/L 3.5 - 5.3 [facility] Work Phone: Sodium [Moles/Vol] 138 mmol/L 136 - 145 [facility] Work Phone: Urea nitrogen [Mass/Vol] 28 mg/dL above high threshold 6 - 23 [facility] Work Phone: Renal Function Panel 66 {mL/min/1.73m2} >90 [facility] Work Phone: Comment on above: CALCULATIONS OF ISMA MATED GFR ARE PERFORMED USING THE 2020 CKD-EPI STUDY REFIT EQUATION WITHOUT THE RACE VARIABLE FOR THE IDMS-TRACEABLE CREATININE METHODS.https://jasn.asnjournals.org/content/early/A SN.1635907611 CBCon 08-24-2022 Erythrocyte distribution width (RBC) [Ratio] 13.9 % Normal 11.5 - 14.5 [facility] Comment on above: Performed By: #### C BC ####[id number] [place] [address] Hematocrit (Bld) [Volume fraction] 31.1 % Low 41.0 - 52.0 [facility] Comment on above: Performed By: #### C BC ####[id number] [place] [address] Hemoglobin (Bld) [Mass/Vol] 10.0 g/dL Low 13.5 - 17.5 [facility] Comment on above: Performed By: #### C BC ####[id number] [place] [address] MCHC (RBC) [Mass/Vol] 32.2 g/dL Normal 32.0 - 36.0 [facility] Comment on above: Performed By: #### C BC ####[id number] [place] [address] MCV (RBC) [Entitic vol] 98 fL Normal 80 - 100 [facility] Comment on above: Performed By: #### C BC ####[id number] [place] [address] NUCLEATED RBC 0.0 /100 WBC Normal 0.0-0.0 [facility] Comment on above: Performed By: #### C BC ####[id number] [place] [address] Platelets (Bld) [#/Vol] 265 10*3/uL Normal 150 - 450 [facility] Comment on above: Performed By: #### C BC ####[id number] [place] [address] RBC 3.17 x10E12/L Low 4.50 - 5.90 [facility] Comment on above: Performed By: #### C BC ####[id number] [place] [address] WBC (Bld) [#/Vol] 7.8 10*3/uL Normal 4.4 - 11.3 [facility] Comment on above: Performed By: #### C BC ####[id number] [address] Daily Progress Note-Cardiac Surgeryon 08-24-2022 Daily Progress Note-Cardiac Surgery Normal [facility] Daily Progress Note-Vascular Medicineon 08-24-2022 Daily Progress Note-Vascular Medicine Normal [facility] EMR ADDONon 08-24-2022 ADDON CONFIRMATION REQUEST REC'D Normal [facility] Comment on above: Performed By: #### E MRAD ####NO LOCATION NEEDED GLUCOSE-POCTon 08-24-2022 Glucose [Mass/Vol] 96 mg/dL Normal 74 - 99 [facility] Comment on above: Performed By: #### G EDI ####[id number] [place] [address] Glucose [Mass/Vol] 97 mg/dL Normal 74 - 99 [facility] Comment on above: Performed By: #### G EDI ####[id number] [place] [address] HEPARIN ASSAY,UFHon 08-25-19 23 HEPARIN ASSAY,UFH 0.3 IU/mL Normal [facility] Comment on above: Result Comment: The therapeutic reference range for UFH may be either 0.3-0.6 IU/mL or 0.3-0.7 IU/mL based on the clinical setting for anticoagulant therapy and the associated nomogram used. For heparin dosing guidelines based on clinical scenario and Heparin Assay results, please refer to local Pharmacy and the [facility] Guidelines for Anticoagulation therapy available on the [facility] intranet at:[email or web address]_Guidelines_for_[email or web address].aspx Performed By: #### H AUF ####[id number] [id number] HEPARIN ASSAY,UFH 0.3 IU/mL Normal [facility] Comment on above: Result Comment: The therapeutic reference range for UFH may be either 0.3-0.6 IU/mL or 0.3-0.7 IU/mL based on the clinical setting for anticoagulant therapy and the associated nomogram used. For heparin dosing guidelines based on clinical scenario and Heparin Assay results, please refer to local Pharmacy and [facility] Guidelines for Anticoagulation therapy available on the [facility] intranet at:[email or web address]/[facility]_Guidelines_for_[email or web address].aspx Performed By: #### H AUF ####[id number] [id number] HEPARIN ASSAY,UFH 0.5 IU/mL Normal [facility] Comment on above: Result Comment: The therapeutic reference range for UFH may be either 0.3-0.6 IU/mL or 0.3-0.7 IU/mL based on the clinical setting for anticoagulant therapy and the associated nomogram used. For heparin dosing guidelines based on clinical scenario and Heparin Assay results, please refer to local Pharmacy and the [facility] Guidelines for Anticoagulation therapy available on the [facility] intranet at:[email or web address]_Guidelines_for_[email or web address].aspx Performed By: #### H AUF ####[id number] [place] [address] Heparin assay, UFHon 07-12-2 023 Heparin unfractionated Chromogenic method Qn (PPP) 0.3 {IU/mL} [facility] Work Phone: Comment on above: The therapeutic refe rence range for UFH may be either 0.3-0.6 IU/mL or 0.3-0.7 IU/mL based on the clinical setting for anticoagulant therapy and the associated nomogram used. For heparin dosing guidelines based on clinical scenario and Heparin Assay results, please refer to local Pharmacy and the [facility] Guidelines for Anticoagulation therapy available on the [facility] intranet at:[email or web address]/[email or web address]/[email or web address]_Guidelines_for_Anticoagu.aspx Heparin unfractionated Chromogenic method Qn (PPP) 0.3 {IU/mL} [facility] Work Phone: Comment on above: The therapeutic refe rence range for UFH may be either 0.3-0.6 IU/mL or 0.3-0.7 IU/mL based on the clinical setting for anticoagulant therapy and the associated nomogram used. For heparin dosing guidelines based on clinical scenario and Heparin Assay results, please refer to local Pharmacy and the [facility] Guidelines for Anticoagulation therapy available on the [facility] intranet at:[email or web address]_Guidelines_for_[email or web address].aspx Heparin unfractionated Chromogenic method Qn (PPP) 0.5 {IU/mL} [facility] Work Phone: Comment on above: The therapeutic refe rence range for UFH may be either 0.3-0.6 IU/mL or 0.3-0.7 IU/mL based on the clinical setting for anticoagulant therapy and the associated nomogram used. For heparin dosing guidelines based on clinical scenario and Heparin Assay results, please refer to local Pharmacy and the [facility] Guidelines for Anticoagulation therapy available on the [facility] intranet at:[email or web address]_Guidelines_for_[email or web address].aspx Laboratory - Chemistry and C hemistry - challengeon 08-24-2022 Glucose [Mass/Vol] 96 mg/dL 74 - 99 -Car diology -[place] Work Phone: Laboratory - Coagulationon 0 08-24-2022 INR Coag (PPP) [Relative time] 1.3 {INR} above high threshold 0.9 - 1.1 [facility] Work Phone: PT Coag (PPP) [Time] 14.4 s above high threshold 9.8 - 12.8 [facility] Work Phone: Comment on above: Note new reference r dima as of 08/02/2022 at 10:00am. Laboratory - Hematology and Cell countson 08-24-2022 Erythrocyte distribution width (RBC) [Ratio] 13.9 % See Below [facility] Work Phone: Comment on above: Reference Range: 11. 5 - 14.5 Hematocrit (Bld) [Volume fraction] 31.1 % below low threshold See Below [employer] Work Phone: Comment on above: Reference Range: 41. 0 - 52.0 Hemoglobin (Bld) [Mass/Vol] 10.0 g/dL below low threshold See Below [employer] Work Phone: Comment on above: Reference Range: 13. 5 - 17.5 MCHC (RBC) [Mass/Vol] 32.2 g/dL See Below [facility] Work Phone: Comment on above: Reference Range: 32. 0 - 36.0 MCV (RBC) [Entitic vol] 98 fL 80 - 100 [facility] Work Phone: Platelets (Bld) [#/Vol] 265 10*3/uL 150 - 450 [facility] Work Phone: RBC (Bld) [#/Vol] 3.17 {x10E12/L} below low threshold See Below [facility] Work Phone: Comment on above: Reference Range: 4.5 0 - 5.90 WBC (Bld) [#/Vol] 7.8 10*3/uL 4.4 - 11.3 [facility] Work Phone: MAGNESIUMon 08-24-2022 Magnesium [Mass/Vol] 2.10 mg/dL Normal 1.60 - 2.40 [facility] Comment on above: Performed By: #### M G ####[id number] [place] [address] Magnesium, Serumon 3 Magnesium [Mass/Vol] 2.10 mg/dL See Below MP-C ardiology [facility] Work Phone: Comment on above: Reference Range: 1.6 0 - 2.40 No Panel Informationon 08-24 0.0 {/100_WBC} 0.0-0.0 [facility]iol [facility] Work Phone: PT/INRon 08-24-2022 PT Coag (PPP) [Time] 14.4 s High 9.8 - 12.8 [facility] Comment on above: Result Comment: Note new reference range as of 08/02/2022 at 10:00am. Performed By: #### P TINR ####[id number] [place] [address] PT, INR 1.3 High 0.9 - 1.1 [facility] Comment on above: Performed By: #### P TINR ####[id number] [place] [address] RENAL FUNCTION PANELon 08-24 Albumin [Mass/Vol] 3.5 g/dL Normal 3.4 - 5.0 [facility] Comment on above: Performed By: #### R ENAL ####[id number] [place] [address] Anion gap [Moles/Vol] 15 mmol/L Normal 10 - 20 [facility] Comment on above: Performed By: #### R ENAL ####[id number] [place] [address] Calcium [Mass/Vol] 9.1 mg/dL Normal 8.6 - 10.6 [facility] Comment on above: Performed By: #### R ENAL ####[id number] [place] [address] Chloride [Moles/Vol] 92 mmol/L Low 98 - 107 [facility] Comment on above: Performed By: #### R ENAL ####[id number] [place] [address] Creatinine [Mass/Vol] 1.44 mg/dL High 0.50 - 1.30 [facility] Comment on above: Performed By: #### R ENAL ####[id number] [place] [address] GFR/1.73 sq M.predicted among non-blacks MDRD (S/P/Bld) [Vol rate/Area] 62 mL/min/{1.73_m2} Normal >90 [facility] Comment on above: Result Comment: CALC ULATIONS OF ESTIMATED GFR ARE PERFORMED USING THE 2020 CKD-EPI STUDY REFIT EQUATION WITHOUT THE RACE VARIABLE FOR THE IDMS-TRACEABLE CREATININE METHODS.https://jasn.asnjournals.org/content//A SN.8237914698 Performed By: #### R ENAL ####[id number] [place] [address] Glucose [Mass/Vol] 102 mg/dL High 74 - 99 [facility] Comment on above: Performed By: #### R ENAL ####[id number] [place] [address] HCO3 (Bld) [Moles/Vol] 34 mmol/L High 21 - 32 [facility] Comment on above: Performed By: #### R ENAL ####[id number] [place] [address] Phosphate [Mass/Vol] 4.1 mg/dL Normal 2.5 - 4.9 [facility] Comment on above: Result Comment: The performance characteristics of phosphorus testing in heparinized plasma have been validated by the individual laboratory site where testing is performed. Testing on heparinized plasma is not approved by the FDA; however, such approval is not necessary. Performed By: #### R ENAL ####[id number] [place] [address] Potassium [Moles/Vol] 3.5 mmol/L Normal 3.5 - 5.3 [facility] Comment on above: Performed By: #### R ENAL ####[id number] [place] [address] Sodium [Moles/Vol] 137 mmol/L Normal 136 - 145 [facility] Comment on above: Performed By: #### R ENAL ####[id number] [place] [address] Urea nitrogen [Mass/Vol] 32 mg/dL High 6 - 23 [facility] Comment on above: Performed By: #### R ENAL ####[id number] [place] [address] Radiologyon 08-24-2022 XR Chest 2 Views Normal -Cardi ology -[facility] Work Phone: Renal Function Panelon 08-24 Albumin BCP dye [Mass/Vol] 3.5 g/dL 3.4 - 5.0 [facility] Work Phone: Anion gap [Moles/Vol] 15 mmol/L 10 - 20 [facility] Work Phone: Calcium [Mass/Vol] 9.1 mg/dL 8.6 - 10.6 MP-[facility] diology [facility] Work Phone: Chloride [Moles/Vol] 92 mmol/L below low threshold 98 - 107 [facility] Work Phone: CO2 [Moles/Vol] 34 mmol/L above high threshold 21 - 32 [facility] Work Phone: Creatinine [Mass/Vol] 1.44 mg/dL above high threshold See Below [facility] Work Phone: Comment on above: Reference Range: 0.5 0 - 1.30 Glucose [Mass/Vol] 102 mg/dL above high threshold 74 - 99 [facility] Work Phone: Phosphate [Mass/Vol] 4.1 mg/dL 2.5 - 4.9 [facility] ardiology [facility] Work Phone: Comment on above: The performance chidi acteristics of phosphorus testing in heparinized plasma have been validated by the individual laboratory site where testing is performed. Testing on heparinized plasma is not approved by the FDA; however, such approval is not necessary. Potassium [Moles/Vol] 3.5 mmol/L 3.5 - 5.3 [facility] Work Phone: Sodium [Moles/Vol] 137 mmol/L 136 - 145 [facility]ology [facility] Work Phone: Urea nitrogen [Mass/Vol] 32 mg/dL above high threshold 6 - 23 [facility] Work Phone: Renal Function Panel 62 {mL/min/1.73m2} >90 [facility] Work Phone: Comment on above: CALCULATIONS OF ISMA MATED GFR ARE PERFORMED USING THE 2020 CKD-EPI STUDY REFIT EQUATION WITHOUT THE RACE VARIABLE FOR THE IDMS-TRACEABLE CREATININE METHODS.https://jasn.asnjournals.org/content//A SN.7961822943 TH CHEST 2 VIEW PA AND LATon 08-24-2022 CHEST 2 VIEW PA AND LAT Normal [facility] CALCIUM, IONIZEDon 3 CALCIUM,IONIZED 1.12 mmol/L Normal 1.10 - 1.33 [facility] Comment on above: Result Comment: The performance characteristics of ionized calcium tested in heparinized plasma or serum have been validated by the individual laboratory site where testing is performed. Testing on heparinized plasma or serum is not approved by the FDA; however, such approval is not necessary. Performed By: #### I ONC1 ####[id number] [place] [address] CBCon 08-23-2022 Erythrocyte distribution width (RBC) [Ratio] 13.7 % Normal 11.5 - 14.5 [facility] Comment on above: Performed By: #### C BC ####[id number] [place] [address] Hematocrit (Bld) [Volume fraction] 31.0 % Low 41.0 - 52.0 [facility] Comment on above: Performed By: #### C BC ####[id number] [place] [address] Hemoglobin (Bld) [Mass/Vol] 10.0 g/dL Low 13.5 - 17.5 [facility] Comment on above: Performed By: #### C BC ####[id number] [place] [address] MCHC (RBC) [Mass/Vol] 32.3 g/dL Normal 32.0 - 36.0 [facility] Comment on above: Performed By: #### C BC ####[id number] [place] [address] MCV (RBC) [Entitic vol] 97 fL Normal 80 - 100 [facility] Comment on above: Performed By: #### C BC ####[id number] [place] [address] NUCLEATED RBC 0.0 /100 WBC Normal 0.0-0.0 [facility] Comment on above: Performed By: #### C BC ####[id number] [place] [address] Platelets (Bld) [#/Vol] 212 10*3/uL Normal 150 - 450 [facility] Comment on above: Performed By: #### C BC ####[id number] [place] [address] RBC 3.19 x10E12/L Low 4.50 - 5.90 [facility] Comment on above: Performed By: #### C BC ####[id number] [place] [address] WBC (Bld) [#/Vol] 8.8 10*3/uL Normal 4.4 - 11.3 [facility] Comment on above: Performed By: #### C BC ####[id number] [place] [address] Erythrocyte distribution width (RBC) [Ratio] 13.7 % Normal 11.5 - 14.5 [facility] Comment on above: Performed By: #### C BC ####[id number] [place] [address] Hematocrit (Bld) [Volume fraction] 31.1 % Low 41.0 - 52.0 [facility] Comment on above: Performed By: #### C BC ####[id number] [place] [address] Hemoglobin (Bld) [Mass/Vol] 10.6 g/dL Low 13.5 - 17.5 [facility] Comment on above: Performed By: #### C BC ####[id number] [place] [address] MCHC (RBC) [Mass/Vol] 34.1 g/dL Normal 32.0 - 36.0 [facility] Comment on above: Performed By: #### C BC ####[id number] [place] [address] MCV (RBC) [Entitic vol] 94 fL Normal 80 - 100 [facility] Comment on above: Performed By: #### C BC ####[id number] [place] [address] NUCLEATED RBC 0.0 /100 WBC Normal 0.0-0.0 [facility] Comment on above: Performed By: #### C BC ####[id number] [place] [address] Platelets (Bld) [#/Vol] 235 10*3/uL Normal 150 - 450 [facility] Comment on above: Performed By: #### C BC ####[id number] [place] [address] RBC 3.32 x10E12/L Low 4.50 - 5.90 [facility] Comment on above: Performed By: #### C BC ####[id number] [place] [address] WBC (Bld) [#/Vol] 10.6 10*3/uL Normal 4.4 - 11.3 [facility] Comment on above: Performed By: #### C BC ####[id number] [place] [address] COAGULATION SCREENon 023 aPTT Coag (Bld) [Time] 44 s High 27 - 38 [facility] Comment on above: Result Comment: Note new reference range as of 08/02/2022 at 10:00am. Performed By: #### C OAGS ####[id number] [place] [address] PT Coag (PPP) [Time] 14.0 s High 9.8 - 12.8 [facility] Comment on above: Result Comment: Note new reference range as of 08/02/2022 at 10:00am. Performed By: #### C OAGS ####[id number] [place] [address] PT, INR 1.2 High 0.9 - 1.1 [facility] Comment on above: Performed By: #### C OAGS ####[id number] [place] [address] Calcium, Ionized Levelon Calcium, Ionized Level 1.12 mmol/L See Below [facility] Work Phone: Comment on above: Reference Range: [...] Daily Progress Note - Critical Care Normal [facility] Daily Progress Note - Critic al Care-CTICUon 08-23-2022 Daily Progress Note - Critical Care-CTICU Normal [facility] Daily Progress Note-Supporti ve Oncologyon 08-23-2022 Daily Progress Note-Supportive Oncology Normal [facility] Daily Progress Note-Vascular Medicineon 08-23-2022 Daily Progress Note-Vascular Medicine Normal [facility] Electrocardiogram 12 Leadon 08-23-2022 Electrocardiogram 12 Lead Normal [facility] GLUCOSE-POCTon 08-23-2022 Glucose [Mass/Vol] 105 mg/dL High 74 - 99 [facility] Comment on above: Performed By: #### G EDI ####[id number] [place] [address] Glucose [Mass/Vol] 110 mg/dL High 74 - 99 [facility] Comment on above: Performed By: #### G EDI ####[id number] [place] [address] Glucose [Mass/Vol] 124 mg/dL High 74 - 99 [facility] Comment on above: Performed By: #### G EDI ####[id number] [place] [address] HEPARIN ASSAY,UFHon 08-24-19 23 HEPARIN ASSAY,UFH 0.3 IU/mL Normal [facility] Comment on above: Result Comment: The therapeutic reference range for UFH may be either 0.3-0.6 IU/mL or 0.3-0.7 IU/mL based on the clinical setting for anticoagulant therapy and the associated nomogram used. For heparin dosing guidelines based on clinical scenario and Heparin Assay results, please refer to local Pharmacy and [facility] Guidelines for Anticoagulation therapy available on the [facility] intranet at:[email or web address]/Pages/[facility]_Guidelines_for_Anticoagu.aspx Performed By: #### H AUF ####[id number] [place] [address] HEPARIN ASSAY,UFH 0.3 IU/mL Normal [facility] Comment on above: Result Comment: The therapeutic reference range for UFH may be either 0.3-0.6 IU/mL or 0.3-0.7 IU/mL based on the clinical setting for anticoagulant therapy and the associated nomogram used. For heparin dosing guidelines based on clinical scenario and Heparin Assay results, please refer to local Pharmacy and [facility] Guidelines for Anticoagulation therapy available on the [facility] intranet at:[email or web address]/Pages/[facility]_Guidelines_for_Anticoagu.aspx Performed By: #### H AUF ####[id number] [place] [address] HEPARIN ASSAY,UFH 0.2 IU/mL Normal [facility] Comment on above: Result Comment: The therapeutic reference range for UFH may be either 0.3-0.6 IU/mL or 0.3-0.7 IU/mL based on the clinical setting for anticoagulant therapy and the associated nomogram used. For heparin dosing guidelines based on clinical scenario and Heparin Assay results, please refer to local Pharmacy and the [facility] Guidelines for Anticoagulation therapy available on the [facility] intranet at:[email or web address]/[email or web address]/Pages/[facility]_Guidelines_for_Anticoagu.aspx Performed By: #### H AUF ####[id number] [place] [address] Heparin assay, UFHon 07-11-2 023 Heparin unfractionated Chromogenic method Qn (PPP) 0.3 {IU/mL} [facility] Work Phone: Comment on above: The therapeutic refe rence range for UFH may be either 0.3-0.6 IU/mL or 0.3-0.7 IU/mL based on the clinical setting for anticoagulant therapy and the associated nomogram used. For heparin dosing guidelines based on clinical scenario and Heparin Assay results, please refer to local Pharmacy and the [facility] Guidelines for Anticoagulation therapy available on the [facility] intranet at:[email or web address]/[email or web address]/Pages/[facility]_Guidelines_for_Anticoagu.aspx Heparin unfractionated Chromogenic method Qn (PPP) 0.3 {IU/mL} [facility] Work Phone: Comment on above: The therapeutic refe rence range for UFH may be either 0.3-0.6 IU/mL or 0.3-0.7 IU/mL based on the clinical setting for anticoagulant therapy and the associated nomogram used. For heparin dosing guidelines based on clinical scenario and Heparin Assay results, please refer to local Pharmacy and the [facility] Guidelines for Anticoagulation therapy available on the [facility] intranet at:[email or web address]/Pages/[facility]_Guidelines_for_Anticoagu.aspx Heparin unfractionated Chromogenic method Qn (PPP) 0.2 {IU/mL} [facility] Work Phone: Comment on above: The therapeutic refe rence range for UFH may be either 0.3-0.6 IU/mL or 0.3-0.7 IU/mL based on the clinical setting for anticoagulant therapy and the associated nomogram used. For heparin dosing guidelines based on clinical scenario and Heparin Assay results, please refer to local Pharmacy and [facility] Guidelines for Anticoagulation therapy available on the [facility] intranet at:[email or web address]/Pages/[facility]_Guidelines_for_Anticoagu.aspx Laboratory - Blood bankon ABO group Nom (Bld) O [facility] Work Phone: Blood group antibody screen Ql Negative [facility] Work Phone: Rh immune globulin screen (Bld) [Interp] Positive [facility] Work Phone: Laboratory - Chemistry and C hemistry - challengeon 08-23-2022 Glucose [Mass/Vol] 97 mg/dL 74 - 99 [facility] Work Phone: Glucose [Mass/Vol] 105 mg/dL above high threshold 74 - 99 [facility] Work Phone: Glucose [Mass/Vol] 110 mg/dL above high threshold 74 - 99 [facility] Work Phone: Glucose [Mass/Vol] 124 mg/dL above high threshold 74 - 99 [facility] Work Phone: Laboratory - Coagulationon 0 08-23-2022 aPTT Coag (PPP) [Time] 44 s above hig h threshold 27 - 38 [facility] Work Phone: Comment on above: Note new reference r dima as of 08/02/2022 at 10:00am. INR Coag (PPP) [Relative time] 1.2 {INR} above high threshold 0.9 - 1.1 [facility] Work Phone: PT Coag (PPP) [Time] 14.0 s above high threshold 9.8 - 12.8 [facility] Work Phone: Comment on above: Note new reference r dima as of 08/02/2022 at 10:00am. Laboratory - Hematology and Cell countson 08-23-2022 Erythrocyte distribution width (RBC) [Ratio] 13.7 % See Below [facility] Work Phone: Comment on above: Reference Range: 11. 5 - 14.5 Hematocrit (Bld) [Volume fraction] 31.0 % below low threshold See Below [facility] Work Phone: Comment on above: Reference Range: 41. 0 - 52.0 Hemoglobin (Bld) [Mass/Vol] 10.0 g/dL below low threshold See Below [facility] Work Phone: Comment on above: Reference Range: 13. 5 - 17.5 MCHC (RBC) [Mass/Vol] 32.3 g/dL See Below [facility] Work Phone: Comment on above: Reference Range: 32. 0 - 36.0 MCV (RBC) [Entitic vol] 97 fL 80 - 100 [facility] Work Phone: Platelets (Bld) [#/Vol] 212 10*3/uL 150 - 450 [facility] Work Phone: RBC (Bld) [#/Vol] 3.19 {x10E12/L} below low threshold See Below [facility] Work Phone: Comment on above: Reference Range: 4.5 0 - 5.90 WBC (Bld) [#/Vol] 8.8 10*3/uL 4.4 - 11.3 [facility] Work Phone: Erythrocyte distribution width (RBC) [Ratio] 13.7 % See Below [facility] Work Phone: Comment on above: Reference Range: 11. 5 - 14.5 Hematocrit (Bld) [Volume fraction] 31.1 % below low threshold See Below [facility] Work Phone: Comment on above: Reference Range: 41. 0 - 52.0 Hemoglobin (Bld) [Mass/Vol] 10.6 g/dL below low threshold See Below [facility] Work Phone: Comment on above: Reference Range: 13. 5 - 17.5 MCHC (RBC) [Mass/Vol] 34.1 g/dL See Below [facility] Work Phone: Comment on above: Reference Range: 32. 0 - 36.0 MCV (RBC) [Entitic vol] 94 fL 80 - 100 [facility] Work Phone: Platelets (Bld) [#/Vol] 235 10*3/uL 150 - 450 [facility] Work Phone: RBC (Bld) [#/Vol] 3.32 {x10E12/L} below low threshold See Below [facility] Work Phone: Comment on above: Reference Range: 4.5 0 - 5.90 WBC (Bld) [#/Vol] 10.6 10*3/uL 4.4 - 11.3 [facility] Work Phone: MAGNESIUMon 08-23-2022 Magnesium [Mass/Vol] 2.00 mg/dL Normal 1.60 - 2.40 [facility] Comment on above: Performed By: #### M G ####[id number] [place] [address] Magnesium, Serumon 3 Magnesium [Mass/Vol] 2.00 mg/dL See Below [facility] Work Phone: Comment on above: Reference Range: 1.6 0 - 2.40 No Panel Informationon 08-23 0.0 {/100_WBC} 0.0-0.0 [facility] Work Phone: [email or web address]MONACTIV Financial SystemsRDWE [email or web address]?[email or web address] teTime?[email or web address]&Date=12-20-2022&Chelsey [email or web address]&Elsa tType=ECG&Site=1&Output Type=PDF&Ext=PDF [facility] Work Phone: Normal sinus rhythm [facility] Work Phone: Borderline Abnormal [facility] Work Phone: [phone] [facility] Work Phone: [phone] [facility] Work Phone: 195 1 [facility] Work Phone: 115 1 [facility] Work Phone: 217 1 [facility] Work Phone: 13 1 [facility] Work Phone: 74 1 [facility] Work Phone: 87 1 [facility] Work Phone: 73 1 [facility] Work Phone: 472 1 [facility] Work Phone: 410 1 [facility] Work Phone: 118 1 [facility] Work Phone: 204 1 [facility] Work Phone: 80 1 [facility] Work Phone: 0.0 {/100_WBC} 0.0-0.0 [facility] Work Phone: OT Evaluation v2-individual therapy - OT student under superon 08-23-2022 OT Evaluation v2-individual therapy - OT student under super [facility] RENAL FUNCTION PANELon 08-23 Albumin [Mass/Vol] 3.5 g/dL Normal 3.4 - 5.0 [facility] Comment on above: Performed By: #### R ENAL ####[id number] [place] [address] Anion gap [Moles/Vol] 13 mmol/L Normal 10 - 20 [facility] Comment on above: Performed By: #### R ENAL ####[id number] [place] [address] Calcium [Mass/Vol] 8.7 mg/dL Normal 8.6 - 10.6 [facility] Comment on above: Performed By: #### R ENAL ####[id number] [place] [address] Chloride [Moles/Vol] 92 mmol/L Low 98 - 107 [facility] Comment on above: Performed By: #### R ENAL ####[id number] [place] [address] Creatinine [Mass/Vol] 1.54 mg/dL High 0.50 - 1.30 [facility] Comment on above: Performed By: #### R ENAL ####[id number] [place] [address] GFR/1.73 sq M.predicted among non-blacks MDRD (S/P/Bld) [Vol rate/Area] 57 mL/min/{1.73_m2} Abnormal >90 [facility] Comment on above: Result Comment: CALC ULATIONS OF ESTIMATED GFR ARE PERFORMED USING THE 2020 CKD-EPI STUDY REFIT EQUATION WITHOUT THE RACE VARIABLE FOR THE IDMS-TRACEABLE CREATININE METHODS.https://jasn.asnjournals.org/content//A SN.7421124717 Performed By: #### R ENAL ####[id number] [place] [address] Glucose [Mass/Vol] 123 mg/dL High 74 - 99 [facility] Comment on above: Performed By: #### R ENAL ####[id number] [place] [address] HCO3 (Bld) [Moles/Vol] 34 mmol/L High 21 - 32 [facility] Comment on above: Performed By: #### R ENAL ####[id number] [place] [address] Phosphate [Mass/Vol] 4.1 mg/dL Normal 2.5 - 4.9 [facility] Comment on above: Result Comment: The performance characteristics of phosphorus testing in heparinized plasma have been validated by the individual laboratory site where testing is performed. Testing on heparinized plasma is not approved by the FDA; however, such approval is not necessary. Performed By: #### R ENAL ####[id number] [place] [address] Potassium [Moles/Vol] 3.7 mmol/L Normal 3.5 - 5.3 [facility] Comment on above: Performed By: #### R ENAL ####[id number] [place] [address] Sodium [Moles/Vol] 135 mmol/L Low 136 - 145 [facility] Comment on above: Performed By: #### R ENAL ####[id number] [place] [address] Urea nitrogen [Mass/Vol] 34 mg/dL High 6 - 23 [facility] Comment on above: Performed By: #### R ENAL ####[id number] [place] [address] Radiologyon 08-23-2022 XR Chest Single view Normal [facility] Work Phone: Renal Function Panelon 08-23 Albumin BCP dye [Mass/Vol] 3.5 g/dL 3.4 - 5.0 -[facility] Work Phone: Anion gap [Moles/Vol] 13 mmol/L 10 - 20 [facility] Work Phone: Calcium [Mass/Vol] 8.7 mg/dL 8.6 - 10.6 -Car [facility] Work Phone: Chloride [Moles/Vol] 92 mmol/L below low threshold 98 - 107 [facility] Work Phone: CO2 [Moles/Vol] 34 mmol/L above high threshold 21 - 32 -[facility] Work Phone: Creatinine [Mass/Vol] 1.54 mg/dL above high threshold See Below -[facility] Work Phone: Comment on above: Reference Range: 0.5 0 - 1.30 Glucose [Mass/Vol] 123 mg/dL above high threshold 74 - 99 -[facility] Work Phone: Phosphate [Mass/Vol] 4.1 mg/dL 2.5 - 4.9 -C [facility] Work Phone: Comment on above: The performance chidi acteristics of phosphorus testing in heparinized plasma have been validated by the individual laboratory site where testing is performed. Testing on heparinized plasma is not approved by the FDA; however, such approval is not necessary. Potassium [Moles/Vol] 3.7 mmol/L 3.5 - 5.3 - [facility] Work Phone: Sodium [Moles/Vol] 135 mmol/L below low threshold 136 - 145 -[facility] Work Phone: Urea nitrogen [Mass/Vol] 34 mg/dL above high threshold 6 - 23 [facility] Work Phone: Renal Function Panel 57 {mL/min/1.73m2} Abnormal >90 -[facility] Work Phone: Comment on above: CALCULATIONS OF ISMA MATED GFR ARE PERFORMED USING THE 2020 CKD-EPI STUDY REFIT EQUATION WITHOUT THE RACE VARIABLE FOR THE IDMS-TRACEABLE CREATININE METHODS.https://jasn.asnjournals.org/content//A SN.6364012602 TH CHEST 1 VIEWon 08-23-2022 TH CHEST 1 VIEW Normal [facility] TYPE + SCREENon 08-23-2022 ABO TYPE O Normal [facility] Comment on above: Performed By: #### T +S ####[id number] [place] [address] RH TYPE Positive Normal [facility] Comment on above: Performed By: #### T +S ####[id number] [place] [address] UA MICROSCOPICon 08-23-2022 Mucus Ql (Urine sed) 1+ /LPF Normal [facility] Comment on above: Performed By: #### U AMIC ####[id number] [place] [address] RBC 4 /HPF Normal 0-5 [facility] Comment on above: Performed By: #### U AMIC ####[id number] [place] [address] SQUAMOUS EPITH. CELLS 2 /HPF Normal [facility] Comment on above: Performed By: #### U AMIC ####[id number] [place] [address] WBC 2 /HPF Normal 0-5 [facility] Comment on above: Performed By: #### U AMIC ####[id number] [place] [address] URINALYSISon 08-23-2022 Appearance (U) CLEAR Normal CLEAR [facility] Comment on above: Performed By: #### U A ####[id number] [place] [address] Bilirubin Ql (U) Negative Normal NEGATIVE [facility] Comment on above: Performed By: #### U A ####[id number] [place] [address] Color (U) RED Normal STRAW,YELLOW [facility] Comment on above: Performed By: #### U A ####[id number] [place] [address] Glucose Ql (U) Negative Normal NEGATIVE [facility] Comment on above: Performed By: #### U A ####[id number] [place] [address] Hemoglobin Ql (U) MODERATE (2+) Abnormal NEGATIVE [facility] Comment on above: Performed By: #### U A ####[id number] [place] [address] Ketones Ql (U) Negative Normal NEGATIVE [facility] Comment on above: Performed By: #### U A ####[id number] [place] [address] Leukocyte esterase Test strip Ql (U) TRACE Abnormal NEGATIVE [facility] Comment on above: Performed By: #### U A ####[id number] [place] [address] Nitrite Ql (U) Negative Normal NEGATIVE [facility] Comment on above: Performed By: #### U A ####[id number] [place] [address] pH (U) 5.0 [pH] Normal 5.0 - 8.0 [facility] Comment on above: Performed By: #### U A ####[id number] [place] [address] Protein Ql (U) 30 (1+) Abnormal NEGATIVE [facility] Comment on above: Performed By: #### U A ####[id number] [place] [address] Specific gravity (U) [Rel density] 1.015 Normal 1.005 - 1.035 [facility] Comment on above: Performed By: #### U A ####[id number] [place] [address] Urobilinogen (U) [Mass/Vol] mg/dL Normal 0.0 - 1.9 [facility] Comment on above: Performed By: #### U A ####[id number] [place] [address] Urinalysison 08-23-2022 Color (U) RED See Below [facility] Work Phone: Comment on above: Reference Range: STR AW,YELLOW Glucose Ql (U) Negative NEGATIVE [facility] Work Phone: Ketones Ql (U) Negative NEGATIVE [facility] Work Phone: Leukocyte esterase Test strip Ql (U) TRACE Abnormal NEGATIVE [facility] Work Phone: pH (U) 5.0 [pH] 5.0 - 8.0 [facility] Work Phone: Protein (U) [Mass/Vol] 30 (1+) Abnormal NEGATIVE [facility] Work Phone: RBC (U) [#/Vol] MODERATE (2+) Abnormal NEGATIVE [facility] Work Phone: Specific gravity (U) [Rel density] 1.015 1 See Below [facility] Work Phone: Comment on above: Reference Range: 1.0 05 - 1.035 Urinalysis Negative NEGATIVE [facility] Work Phone: Urinalysis <2.0 0.0 - 1.9 [facility] Work Phone: Urinalysis CLEAR CLEAR [facility] Work Phone: Urinalysis, Microscopicon Urinalysis, Microscopic 1+ [facility] Work Phone: Urinalysis, Microscopic 2 {/HPF} 0-5 [facility] Work Phone: Urinalysis, Microscopic 4 {/HPF} 0-5 [facility] Work Phone: ARTERIAL FULL PANELon 2022 Anion gap [Moles/Vol] 8 mmol/L Low 10 - 25 [facility] Comment on above: Performed By: #### A FPA4 ####[id number] [place] [address] BASE EXCESS-BLOOD 7.1 mmol/L High -2.0 - 3.0 [facility] Comment on above: Performed By: #### A FPA4 ####[id number] [place] [address] BICARB, CALCULATED 32.5 mmol/L High 22.0 - 26.0 [facility] Comment on above: Performed By: #### A FPA4 ####[id number] [place] [address] CALCIUM,IONIZED 1.15 mmol/L Normal 1.10 - 1.33 [facility] Comment on above: Performed By: #### A FPA4 ####[id number] [place] [address] Chloride [Moles/Vol] 95 mmol/L Low 98 - 107 [facility] Comment on above: Performed By: #### A FPA4 ####[id number] [place] [address] Glucose [Mass/Vol] 94 mg/dL Normal 74 - 99 [facility] Comment on above: Performed By: #### A FPA4 ####[id number] [place] [address] Hematocrit (Bld) [Volume fraction] 33.0 % Low 41.0 - 52.0 [facility] Comment on above: Performed By: #### A FPA4 ####[id number] [place] [address] Hemoglobin (Bld) [Mass/Vol] 11.0 g/dL Low 13.5 - 17.5 [facility] Comment on above: Performed By: #### A FPA4 ####[id number] [place] [address] Lactate [Moles/Vol] 1.0 mmol/L Normal 0.4 - 2.0 [facility] Comment on above: Performed By: #### A FPA4 ####[id number] [place] [address] OXY HGB 95.4 % Normal 94.0 - 98.0 [facility] Comment on above: Performed By: #### A FPA4 ####[id number] [place] [address] Oxygen (Bld) [Partial pressure] 98 mm[Hg] High 85 - 95 [facility] Comment on above: Performed By: #### A FPA4 ####[id number] [place] [address] PATIENT TEMPERATURE 37.0 degrees C Normal [facility] Comment on above: Result Comment: NOTE : PATIENT RESULTS ARE NOT CORRECTED FOR TEMPERATURE. Performed By: #### A FPA4 ####[id number] [place] [address] PCO2 49 mmHg High 38 - 42 [facility] Comment on above: Performed By: #### A FPA4 ####[id number] [place] [address] pH (Bld) 7.43 [pH] High 7.38 - 7.42 [facility] Comment on above: Performed By: #### A FPA4 ####[id number] [place] [address] Potassium [Moles/Vol] 3.8 mmol/L Normal 3.5 - 5.3 [facility] Comment on above: Performed By: #### A FPA4 ####[id number] [place] [address] SO2 97 % Normal 94 - 100 [facility] Comment on above: Performed By: #### A FPA4 ####[id number] [place] [address] Sodium [Moles/Vol] 132 mmol/L Low 136 - 145 [facility] Comment on above: Performed By: #### A FPA4 ####[id number] [place] [address] Anion gap [Moles/Vol] 7 mmol/L Low 10 - 25 [facility] Comment on above: Performed By: #### A FPA4 ####[id number] [place] [address] BASE EXCESS-BLOOD 8.4 mmol/L High -2.0 - 3.0 [facility] Comment on above: Performed By: #### A FPA4 ####[id number] [place] [address] BICARB, CALCULATED 33.9 mmol/L High 22.0 - 26.0 [facility] Comment on above: Performed By: #### A FPA4 ####[id number] [place] [address] CALCIUM,IONIZED 1.20 mmol/L Normal 1.10 - 1.33 [facility] Comment on above: Performed By: #### A FPA4 ####[id number] [place] [address] Chloride [Moles/Vol] 95 mmol/L Low 98 - 107 [facility] Comment on above: Performed By: #### A FPA4 ####[id number] [place] [address] Glucose [Mass/Vol] 92 mg/dL Normal 74 - 99 [facility] Comment on above: Performed By: #### A FPA4 ####[id number] [place] [address] Hematocrit (Bld) [Volume fraction] 31.0 % Low 41.0 - 52.0 [facility] Comment on above: Performed By: #### A FPA4 ####[id number] [place] [address] Hemoglobin (Bld) [Mass/Vol] 10.2 g/dL Low 13.5 - 17.5 [facility] Comment on above: Performed By: #### A FPA4 ####[id number] [place] [address] Lactate [Moles/Vol] 1.0 mmol/L Normal 0.4 - 2.0 [facility] Comment on above: Performed By: #### A FPA4 ####[id number] [place] [address] OXY HGB 95.8 % Normal 94.0 - 98.0 [facility] Comment on above: Performed By: #### A FPA4 ####[id number] [place] [address] Oxygen (Bld) [Partial pressure] 106 mm[Hg] High 85 - 95 [facility] Comment on above: Performed By: #### A FPA4 ####[id number] [place] [address] PATIENT TEMPERATURE 37.0 degrees C Normal [facility] Comment on above: Result Comment: NOTE : PATIENT RESULTS ARE NOT CORRECTED FOR TEMPERATURE. Performed By: #### A FPA4 ####[id number] [place] [address] PCO2 51 mmHg High 38 - 42 [facility] Comment on above: Performed By: #### A FPA4 ####[id number] [place] [address] pH (Bld) 7.43 [pH] High 7.38 - 7.42 [facility] Comment on above: Performed By: #### A FPA4 ####[id number] [place] [address] Potassium [Moles/Vol] 3.7 mmol/L Normal 3.5 - 5.3 [facility] Comment on above: Performed By: #### A FPA4 ####[id number] [place] [address] SO2 100 % Normal 94 - 100 [facility] Comment on above: Performed By: #### A FPA4 ####[id number] [place] [address] Sodium [Moles/Vol] 132 mmol/L Low 136 - 145 [facility] Comment on above: Performed By: #### A FPA4 ####[id number] [place] [address] CALCIUM, IONIZEDon 3 CALCIUM,IONIZED 1.11 mmol/L Normal 1.10 - 1.33 [facility] Comment on above: Result Comment: The performance characteristics of ionized calcium tested in heparinized plasma or serum have been validated by the individual laboratory site where testing is performed. Testing on heparinized plasma or serum is not approved by the FDA; however, such approval is not necessary. Performed By: #### I ONC1 ####[id number] [place] [address] CBCon 08-22-2022 Erythrocyte distribution width (RBC) [Ratio] 13.6 % Normal 11.5 - 14.5 [facility] Comment on above: Performed By: #### C BC ####[id number] [place] [address] Hematocrit (Bld) [Volume fraction] 32.0 % Low 41.0 - 52.0 [facility] Comment on above: Performed By: #### C BC ####[id number] [place] [address] Hemoglobin (Bld) [Mass/Vol] 10.8 g/dL Low 13.5 - 17.5 [facility] Comment on above: Performed By: #### C BC ####[id number] [place] [address] MCHC (RBC) [Mass/Vol] 33.8 g/dL Normal 32.0 - 36.0 [facility] Comment on above: Performed By: #### C BC ####[id number] [place] [address] MCV (RBC) [Entitic vol] 93 fL Normal 80 - 100 [facility] Comment on above: Performed By: #### C BC ####[id number] [place] [address] NUCLEATED RBC 0.0 /100 WBC Normal 0.0-0.0 [facility] Comment on above: Performed By: #### C BC ####[id number] [place] [address] Platelets (Bld) [#/Vol] 207 10*3/uL Normal 150 - 450 [facility] Comment on above: Performed By: #### C BC ####[id number] [place] [address] RBC 3.44 x10E12/L Low 4.50 - 5.90 [facility] Comment on above: Performed By: #### C BC ####[id number] [place] [address] WBC (Bld) [#/Vol] 11.1 10*3/uL Normal 4.4 - 11.3 [facility] Comment on above: Performed By: #### C BC ####[id number] [place] [address] Erythrocyte distribution width (RBC) [Ratio] 14.1 % Normal 11.5 - 14.5 [facility] Comment on above: Performed By: #### C BC ####[id number] [place] [address] Hematocrit (Bld) [Volume fraction] 33.7 % Low 41.0 - 52.0 [facility] Comment on above: Performed By: #### C BC ####[id number] [place] [address] Hemoglobin (Bld) [Mass/Vol] 10.2 g/dL Low 13.5 - 17.5 [facility] Comment on above: Performed By: #### C BC ####[id number] [place] [address] MCHC (RBC) [Mass/Vol] 30.3 g/dL Low 32.0 - 36.0 [facility] Comment on above: Performed By: #### C BC ####[id number] [place] [address] MCV (RBC) [Entitic vol] 105 fL High 80 - 100 [facility] Comment on above: Performed By: #### C BC ####[id number] [place] [address] NUCLEATED RBC 0.0 /100 WBC Normal 0.0-0.0 [facility] Comment on above: Performed By: #### C BC ####[id number] [place] [address] Platelets (Bld) [#/Vol] 167 10*3/uL Normal 150 - 450 [facility] Comment on above: Performed By: #### C BC ####[id number] [place] [address] RBC 3.20 x10E12/L Low 4.50 - 5.90 [facility] Comment on above: Performed By: #### C BC ####[id number] [place] [address] WBC (Bld) [#/Vol] 13.1 10*3/uL High 4.4 - 11.3 [facility] Comment on above: Performed By: #### C BC ####[id number] [place] [address] CBC AND DIFFERENTIALon 08-22 % AUTOMATED IMMATURE GRAN 0.5 % Normal 0.0 - 0.9 [facility] Comment on above: Result Comment: Nicki ture Granulocyte Count (IG) includes promyelocytes, myelocytes and metamyelocytes but does not include bands. Percent differential counts (%) should be interpreted in the context of the absolute cell counts (cells/L). Performed By: #### C BCDF ####[id number] [place] [address] Basophils (Bld) [#/Vol] 0.07 10*3/uL Normal 0.00 - 0.10 [facility] Comment on above: Performed By: #### C BCDF ####[id number] [place] [address] Basophils/100 WBC (Bld) 0.6 % Normal 0.0 - 2.0 [facility] Comment on above: Performed By: #### C BCDF ####[id number] [place] [address] Eosinophils (Bld) [#/Vol] 0.33 10*3/uL Normal 0.00 - 0.70 [facility] Comment on above: Performed By: #### C BCDF ####[id number] [place] [address] Eosinophils/100 WBC (Bld) 2.9 % Normal 0.0 - 6.0 [facility] Comment on above: Performed By: #### C BCDF ####[id number] [place] [address] Erythrocyte distribution width (RBC) [Ratio] 13.7 % Normal 11.5 - 14.5 [facility] Comment on above: Performed By: #### C BCDF ####[id number] [place] [address] Hematocrit (Bld) [Volume fraction] 30.8 % Low 41.0 - 52.0 [facility] Comment on above: Performed By: #### C BCDF ####[id number] [place] [address] Hemoglobin (Bld) [Mass/Vol] 10.1 g/dL Low 13.5 - 17.5 [facility] Comment on above: Performed By: #### C BCDF ####[id number] [place] [address] Lymphocytes (Bld) [#/Vol] 1.31 10*3/uL Normal 1.20 - 4.80 [facility] Comment on above: Performed By: #### C BCDF ####[id number] [place] [address] Lymphocytes/100 WBC (Bld) 11.4 % Normal 13.0 - 44.0 [facility] Comment on above: Performed By: #### C BCDF ####[id number] [place] [address] MCHC (RBC) [Mass/Vol] 32.8 g/dL Normal 32.0 - 36.0 [facility] Comment on above: Performed By: #### C BCDF ####[id number] [place] [address] MCV (RBC) [Entitic vol] 94 fL Normal 80 - 100 [facility] Comment on above: Performed By: #### C BCDF ####[id number] [place] [address] Monocytes (Bld) [#/Vol] 0.84 10*3/uL Normal 0.10 - 1.00 [facility] Comment on above: Performed By: #### C BCDF ####[id number] [place] [address] Monocytes/100 WBC (Bld) 7.3 % Normal 2.0 - 10.0 [facility] Comment on above: Performed By: #### C BCDF ####[id number] [place] [address] Neutrophils (Bld) [#/Vol] 8.84 10*3/uL High 1.20 - 7.70 [facility] Comment on above: Performed By: #### C BCDF ####[id number] [place] [address] Neutrophils/100 WBC (Bld) 77.3 % Normal 40.0 - 80.0 [facility] Comment on above: Performed By: #### C BCDF ####[id number] [place] [address] NUCLEATED RBC 0.0 /100 WBC Normal 0.0-0.0 [facility] Comment on above: Performed By: #### C BCDF ####[id number] [place] [address] Platelets (Bld) [#/Vol] 204 10*3/uL Normal 150 - 450 [facility] Comment on above: Performed By: #### C BCDF ####[id number] [place] [address] RBC 3.27 x10E12/L Low 4.50 - 5.90 [facility] Comment on above: Performed By: #### C BCDF ####[id number] [place] [address] WBC (Bld) [#/Vol] 11.5 10*3/uL High 4.4 - 11.3 [facility] Comment on above: Performed By: #### C BCDF ####[id number] [place] [address] COAGULATION SCREENon 023 aPTT Coag (Bld) [Time] 31 s Normal 27 - 38 [facility] Comment on above: Result Comment: Note new reference range as of 08/02/2022 at 10:00am. Performed By: #### C OAGS ####[id number] [place] [address] PT Coag (PPP) [Time] 13.9 s High 9.8 - 12.8 [facility] Comment on above: Result Comment: Note new reference range as of 08/02/2022 at 10:00am. Performed By: #### C OAGS ####[id number] [place] [address] PT, INR 1.2 High 0.9 - 1.1 [facility] Comment on above: Performed By: #### C OAGS ####[id number] [place] [address] Calcium, Ionized Levelon Calcium, Ionized Level 1.11 mmol/L See Below M [employer] Work Phone: Comment on above: Reference Range: [...] WBC (Bld) 0.6 % 0.0 - 2.0 [employer] Work Phone: Erythrocyte distribution width (RBC) [Ratio] 13.7 % See Below [employer] Work Phone: Comment on above: Reference Range: 11. 5 - 14.5 Hematocrit (Bld) [Volume fraction] 30.8 % below low threshold See Below [employer] Work Phone: Comment on above: Reference Range: 41. 0 - 52.0 Hemoglobin (Bld) [Mass/Vol] 10.1 g/dL below low threshold See Below [employer] Work Phone: Comment on above: Reference Range: 13. 5 - 17.5 Lymphocytes/100 WBC (Bld) 11.4 % See Below [facility] Work Phone: Comment on above: Reference Range: 13. 0 - 44.0 MCHC (RBC) [Mass/Vol] 32.8 g/dL See Below [facility] Work Phone: Comment on above: Reference Range: 32. 0 - 36.0 MCV (RBC) [Entitic vol] 94 fL 80 - 100 [employer] Work Phone: Monocytes/100 WBC (Bld) 7.3 % 2.0 - 10.0 [employer] Work Phone: Neutrophils/100 WBC (Bld) 77.3 % See Below [facility] [facility] Work Phone: Comment on above: Reference Range: 40. 0 - 80.0 Platelets (Bld) [#/Vol] 204 10*3/uL 150 - 450 [employer] Work Phone: RBC (Bld) [#/Vol] 3.27 {x10E12/L} below low threshold See Below [employer] Work Phone: Comment on above: Reference Range: 4.5 0 - 5.90 WBC (Bld) [#/Vol] 11.5 10*3/uL above high threshold 4.4 - 11.3 [employer] Work Phone: Complete Blood Count + Differential 0.07 {x10E9/L} See Below [employer] Work Phone: Comment on above: Reference Range: 0.0 0 - 0.10 Complete Blood Count + Differential 0.33 {x10E9/L} See Below [facility] Work Phone: Comment on above: Reference Range: 0.0 0 - 0.70 Complete Blood Count + Differential 0.84 {x10E9/L} See Below [facility] Work Phone: Comment on above: Reference Range: 0.1 0 - 1.00 Complete Blood Count + Differential 1.31 {x10E9/L} See Below [employer] Work Phone: Comment on above: Reference Range: 1.2 0 - 4.80 Complete Blood Count + Differential 8.84 {x10E9/L} above high threshold See Below [employer] Work Phone: Comment on above: Reference Range: 1.2 0 - 7.70 Complete Blood Count + Differential 2.9 % 0.0 - 6.0 [employer] Work Phone: Complete Blood Count + Differential 0.5 % 0.0 - 0.9 [employer] Work Phone: Comment on above: Immature Granulocyte Count (IG) includes promyelocytes, myelocytes and metamyelocytes but does not include bands. Percent differential counts (%) should be interpreted in the context of the absolute cell counts (cells/L). Complete Blood Count + Differential 0.0 {/100_WBC} 0.0-0.0 [employer] Work Phone: Daily Progress Note - Critic al Careon 08-22-2022 Daily Progress Note - Critical Care Normal [facility] Daily Progress Note - Critic al Care-CTICUon 08-22-2022 Daily Progress Note - Critical Care-CTICU Normal [facility] Daily Progress Note-Supporti ve Oncologyon 08-22-2022 Daily Progress Note-Supportive Oncology Normal [facility] Daily Progress Note-Vascular Medicineon 08-22-2022 Daily Progress Note-Vascular Medicine Normal [facility] Electrocardiogram 12 Leadon 08-22-2022 Electrocardiogram 12 Lead Normal [facility] GLUCOSE-POCTon 08-22-2022 Glucose [Mass/Vol] 95 mg/dL Normal 74 - 99 [facility] Comment on above: Performed By: #### G EDI ####[id number] [place] [address] Glucose [Mass/Vol] 106 mg/dL High 74 - 99 [facility] Comment on above: Performed By: #### G EDI ####[id number] [place] [address] Glucose [Mass/Vol] 84 mg/dL Normal 74 - 99 [facility] Comment on above: Performed By: #### G EDI ####[id number] [place] [address] HEPARIN ASSAY,UFHon 08-23-19 HEPARIN ASSAY,UFH 0.2 IU/mL Normal [facility] Comment on above: Result Comment: The therapeutic reference range for UFH may be either 0.3-0.6 IU/mL or 0.3-0.7 IU/mL based on the clinical setting for anticoagulant therapy and the associated nomogram used. For heparin dosing guidelines based on clinical scenario and Heparin Assay results, please refer to local Pharmacy and [facility] Guidelines for Anticoagulation therapy available on the [facility] intranet at:[email or web address]/[email or web address]/Pages/[facility]_Guidelines_for_Anticoagu.aspx Performed By: #### H AUF ####[id number] [place] [address] HEPARIN ASSAY,UFH 0.1 IU/mL Normal [facility] Comment on above: Result Comment: The therapeutic reference range for UFH may be either 0.3-0.6 IU/mL or 0.3-0.7 IU/mL based on the clinical setting for anticoagulant therapy and the associated nomogram used. For heparin dosing guidelines based on clinical scenario and Heparin Assay results, please refer to local Pharmacy and the [facility] Guidelines for Anticoagulation therapy available on the [facility] intranet at:[email or web address]/[email or web address]/Pages/[facility]_Guidelines_for_Anticoagu.aspx Performed By: #### H AUF ####[id number] [place] [address] HEPARIN ASSAY,UFH Canceled Normal [facility] Comment on above: Order Comment: TEST HEPARIN ASSAY,UFH WAS CANCELLED, 08/22/2022 09:23 Result Comment: The therapeutic reference range for UFH may be either 0.3-0.6 IU/mL or 0.3-0.7 IU/mL based on the clinical setting for anticoagulant therapy and the associated nomogram used. For heparin dosing guidelines based on clinical scenario and Heparin Assay results, please refer to local Pharmacy and the [facility] Guidelines for Anticoagulation therapy available on the [facility] intranet at:[email or web address]/[email or web address]/Pages/[facility]_Guidelines_for_Anticoagu.aspx Performed By: #### H AUF ####[id number] [id number] HEPARIN ASSAY,UFH <0.1 Normal [facility] Comment on above: Result Comment: The therapeutic reference range for UFH may be either 0.3-0.6 IU/mL or 0.3-0.7 IU/mL based on the clinical setting for anticoagulant therapy and the associated nomogram used. For heparin dosing guidelines based on clinical scenario and Heparin Assay results, please refer to local Pharmacy and [facility] Guidelines for Anticoagulation therapy available on the [facility] intranet at:[email or web address]/[email or web address]/Pages/[facility]_Guidelines_for_Anticoagu.aspx Performed By: #### H AUF ####[id number] [id number] HEPARIN ASSAY,UFH <0.1 Normal [facility] Comment on above: Result Comment: The therapeutic reference range for UFH may be either 0.3-0.6 IU/mL or 0.3-0.7 IU/mL based on the clinical setting for anticoagulant therapy and the associated nomogram used. For heparin dosing guidelines based on clinical scenario and Heparin Assay results, please refer to local Pharmacy and [facility] Guidelines for Anticoagulation therapy available on the [facility] intranet at:[email or web address]/Pages/[facility]_Guidelines_for_Anticoagu.aspx Performed By: #### H AUF ####[id number] [place] [address] HEPARIN ASSAY,UFH Canceled Normal [facility] Comment on above: Order Comment: TEST HEPARIN ASSAY,UFH WAS CANCELLED, 08/21/2022 22:53 QNS, RESUBMIT. Result Comment: The therapeutic reference range for UFH may be either 0.3-0.6 IU/mL or 0.3-0.7 IU/mL based on the clinical setting for anticoagulant therapy and the associated nomogram used. For heparin dosing guidelines based on clinical scenario and Heparin Assay results, please refer to local Pharmacy and the [facility] Guidelines for Anticoagulation therapy available on the [facility] intranet at:[email or web address]/[email or web address]/Pages/[facility]_Guidelines_for_Anticoagu.aspx Performed By: #### H [facility] ####[id number] [place] [address] Heparin assay, UFHon -10-2 023 Heparin unfractionated Chromogenic method Qn (PPP) 0.2 {IU/mL} [employer] Work Phone: Comment on above: The therapeutic refe rence range for UFH may be either 0.3-0.6 IU/mL or 0.3-0.7 IU/mL based on the clinical setting for anticoagulant therapy and the associated nomogram used. For heparin dosing guidelines based on clinical scenario and Heparin Assay results, please refer to local Pharmacy and [facility] Guidelines for Anticoagulation therapy available on the [facility] intranet at:[email or web address]/Pharmacy/Pages/[facility]_Guidelines_for_Anticoagu.aspx Heparin unfractionated Chromogenic method Qn (PPP) 0.1 {IU/mL} [employer] Work Phone: Comment on above: The therapeutic refe rence range for UFH may be either 0.3-0.6 IU/mL or 0.3-0.7 IU/mL based on the clinical setting for anticoagulant therapy and the associated nomogram used. For heparin dosing guidelines based on clinical scenario and Heparin Assay results, please refer to local Pharmacy and the [facility] Guidelines for Anticoagulation therapy available on the [facility] intranet at:[email or web address]/[email or web address]/Pages/[facility]_Guidelines_for_Anticoagu.aspx Heparin unfractionated Chromogenic method Qn (PPP) <0.1 [facility] Work Phone: Comment on above: The therapeutic refe rence range for UFH may be either 0.3-0.6 IU/mL or 0.3-0.7 IU/mL based on the clinical setting for anticoagulant therapy and the associated nomogram used. For heparin dosing guidelines based on clinical scenario and Heparin Assay results, please refer to local Pharmacy and the [facility] Guidelines for Anticoagulation therapy available on the [facility] intranet at:[email or web address]/[email or web address]/Pages/[facility]ics[facility]_Guidelines_for_Anticoagu.aspx Laboratory - Chemistry and C hemistry - challengeon 08-22-2022 Glucose [Mass/Vol] 95 mg/dL 74 - 99 -[employer] [facility] Work Phone: Glucose [Mass/Vol] 106 mg/dL above high threshold 74 - 99 -[facility] Work Phone: Anion gap 4 (BldA) [Moles/Vol] 8 mmol/L below low threshold 10 - 25 -[facility] Work Phone: Base excess Calc (Bld) [Moles/Vol] 7.1 mmol/L above high threshold -2.0 - 3.0 -[facility] Work Phone: Calcium.ionized (BldA) [Moles/Vol] 1.15 mmol/L See Below -[facility] Work Phone: Comment on above: Reference Range: 1.1 0 - 1.33 Chloride (BldA) [Moles/Vol] 95 mmol/L below low threshold 98 - 107 [facility] Work Phone: CO2 (Bld) [Partial pressure] 49 mm[Hg] above high threshold 38 - 42 [facility] Work Phone: Glucose [Mass/Vol] 94 mg/dL 74 - 99 -[employer] [facility] Work Phone: HCO3 (Bld) [Moles/Vol] 32.5 mmol/L above hig h threshold See Below [facility]ENTER[facility]ions[facility] Work Phone: Comment on above: Reference Range: 22. 0 - 26.0 Lactate (BldA) [Moles/Vol] 1.0 mmol/L 0.4 - 2.0 [facility]ERS[facility] Work Phone: Oxygen (Bld) [Partial pressure] 98 mm[Hg] above high threshold 85 - 95 [facility] Work Phone: Oxyhemoglobin (BldA) [Mass fraction] 95.4 % See Below [facility] Work Phone: Comment on above: Reference Range: 94. 0 - 98.0 pH (Bld) 7.43 [pH] above high threshold See Below [employer] Work Phone: Comment on above: Reference Range: 7.3 8 - 7.42 Potassium (BldA) [Moles/Vol] 3.8 mmol/L 3.5 - 5.3 [facility] Work Phone: Sodium (BldA) [Moles/Vol] 132 mmol/L below low threshold 136 - 145 [facility] Work Phone: Glucose [Mass/Vol] 84 mg/dL 74 - 99 [facility] Work Phone: Anion gap 4 (BldA) [Moles/Vol] 7 mmol/L below low threshold 10 - 25 [facility] Work Phone: Base excess Calc (Bld) [Moles/Vol] 8.4 mmol/L above high threshold -2.0 - 3.0 [facility]ENTER[facility] [employer] Work Phone: Calcium.ionized (BldA) [Moles/Vol] 1.20 mmol/L See Below [facility] [employer] Work Phone: Comment on above: Reference Range: 1.1 0 - 1.33 Chloride (BldA) [Moles/Vol] 95 mmol/L below low threshold 98 - 107 [facility] Work Phone: CO2 (Bld) [Partial pressure] 51 mm[Hg] above high threshold 38 - 42 [facility] Work Phone: Glucose [Mass/Vol] 92 mg/dL 74 - 99 [employer] Work Phone: HCO3 (Bld) [Moles/Vol] 33.9 mmol/L above hig h threshold See Below [facility] Work Phone: Comment on above: Reference Range: 22. 0 - 26.0 Lactate (BldA) [Moles/Vol] 1.0 mmol/L 0.4 - 2.0 [employer] Work Phone: Oxygen (Bld) [Partial pressure] 106 mm[Hg] above high threshold 85 - 95 [employer] Work Phone: Oxyhemoglobin (BldA) [Mass fraction] 95.8 % See Below [facility] Work Phone: Comment on above: Reference Range: 94. 0 - 98.0 pH (Bld) 7.43 [pH] above high threshold See Below [facility] Work Phone: Comment on above: Reference Range: 7.3 8 - 7.42 Potassium (BldA) [Moles/Vol] 3.7 mmol/L 3.5 - 5.3 [employer] Work Phone: Sodium (BldA) [Moles/Vol] 132 mmol/L below low threshold 136 - 145 [facility] Work Phone: Laboratory - Coagulationon 0 08-22-2022 aPTT Coag (PPP) [Time] 31 s 27 - 38 [employer] Work Phone: Comment on above: Note new reference jose luis ch as of 08/02/2022 at 10:00am. INR Coag (PPP) [Relative time] 1.2 {INR} above high threshold 0.9 - 1.1 [facility] Work Phone: PT Coag (PPP) [Time] 13.9 s above high threshold 9.8 - 12.8 [facility] Work Phone: Comment on above: Note new reference r dima as of 08/02/2022 at 10:00am. Laboratory - Hematology and Cell countson 08-22-2022 Erythrocyte distribution width (RBC) [Ratio] 13.6 % See Below [facility]BioLeap[facility] Work Phone: Comment on above: Reference Range: 11. 5 - 14.5 Hematocrit (Bld) [Volume fraction] 32.0 % below low threshold See Below [facility] Work Phone: Comment on above: Reference Range: 41. 0 - 52.0 Hemoglobin (Bld) [Mass/Vol] 10.8 g/dL below low threshold See Below [facility] Work Phone: Comment on above: Reference Range: 13. 5 - 17.5 MCHC (RBC) [Mass/Vol] 33.8 g/dL See Below [facility] [employer] Work Phone: Comment on above: Reference Range: 32. 0 - 36.0 MCV (RBC) [Entitic vol] 93 fL 80 - 100 [facility] Work Phone: Platelets (Bld) [#/Vol] 207 10*3/uL 150 - 450 [facility] Work Phone: RBC (Bld) [#/Vol] 3.44 {x10E12/L} below low threshold See Below [facility] Work Phone: Comment on above: Reference Range: 4.5 0 - 5.90 WBC (Bld) [#/Vol] 11.1 10*3/uL 4.4 - 11.3 [facility]-Ca rdiology [facility] Work Phone: Hematocrit Est (Bld) [Volume fraction] 33.0 % below low threshold See Below [facility] Work Phone: Comment on above: Reference Range: 41. 0 - 52.0 Hemoglobin (Bld) [Mass/Vol] 11.0 g/dL below low threshold See Below [facility] Work Phone: Comment on above: Reference Range: 13. 5 - 17.5 Hematocrit Est (Bld) [Volume fraction] 31.0 % below low threshold See Below [facility] Work Phone: Comment on above: Reference Range: 41. 0 - 52.0 Hemoglobin (Bld) [Mass/Vol] 10.2 g/dL below low threshold See Below [facility] Work Phone: Comment on above: Reference Range: 13. 5 - 17.5 MAGNESIUMon 08-22-2022 Magnesium [Mass/Vol] 1.98 mg/dL Normal 1.60 - 2.40 [facility] Comment on above: Performed By: #### M G ####[id number] [place] [address] Magnesium [Mass/Vol] 2.05 mg/dL Normal 1.60 - 2.40 [facility] Comment on above: Performed By: #### M G ####[id number] [place] [address] Magnesium, Serumon 3 Magnesium [Mass/Vol] 1.98 mg/dL See Below -C ardi[facility] Work Phone: Comment on above: Reference Range: 1.6 0 - 2.40 Magnesium [Mass/Vol] 2.05 mg/dL See Below -C ardi[facility] Work Phone: Comment on above: Reference Range: 1.6 0 - 2.40 No Panel Informationon 08-22 0.0 {/100_WBC} 0.0-0.0 [facility] Work Phone: [email or web address]://[facility] GUYMONACTIV Financial SystemsWESTBROOK [facility] B01 [email or web address]?[email or web address]&Date=11-19-2022&Chelsey e=[email or web address]&Elsa tType=ECG&Site=1&Output Type=PDF&Ext=PDF [facility] Work Phone: Atrial flutter with variable A-V block with frequent ventricular-paced complexes [facility] Work Phone: Abnormal [facility] Work Phone: [phone] [facility] Work Phone: [phone] [facility] Work Phone: 165 1 [facility] Work Phone: 89 1 [facility] Work Phone: 201 1 [facility] Work Phone: 18 1 [facility] Work Phone: 68 1 [facility] Work Phone: 100 1 [facility] Work Phone: 256 1 [facility] Work Phone: [phone] 1 [facility] Work Phone: [phone] 1 [facility] Work Phone: 118 1 [facility] Work Phone: 208 1 [facility] Work Phone: 107 1 [facility] Work Phone: PT Evaluation [id number] onon 08-22-2022 PT Evaluation [id number] Normal [facility] RENAL FUNCTION PANELon 08-22 Albumin [Mass/Vol] 3.5 g/dL Normal 3.4 - 5.0 [facility] Comment on above: Performed By: #### R ENAL ####[id number] [place] [address] Anion gap [Moles/Vol] 13 mmol/L Normal 10 - 20 [facility] Comment on above: Performed By: #### R ENAL ####[id number] [place] [address] Calcium [Mass/Vol] 8.8 mg/dL Normal 8.6 - 10.6 [facility] Comment on above: Performed By: #### R ENAL ####[id number] [place] [address] Chloride [Moles/Vol] 94 mmol/L Low 98 - 107 [facility] Comment on above: Performed By: #### R ENAL ####[id number] [place] [address] Creatinine [Mass/Vol] 1.51 mg/dL High 0.50 - 1.30 [facility] Comment on above: Performed By: #### R ENAL ####[id number] [place] [address] GFR/1.73 sq M.predicted among non-blacks MDRD (S/P/Bld) [Vol rate/Area] 58 mL/min/{1.73_m2} Abnormal >90 [facility] Comment on above: Result Comment: CALC ULATIONS OF ESTIMATED GFR ARE PERFORMED USING THE 2020 CKD-EPI STUDY REFIT EQUATION WITHOUT THE RACE VARIABLE FOR THE IDMS-TRACEABLE CREATININE METHODS.https://jasn.asnjournals.org/content//A SN.4946922137 Performed By: #### R ENAL ####[id number] [place] [address] Glucose [Mass/Vol] 112 mg/dL High 74 - 99 [facility] Comment on above: Performed By: #### R ENAL ####[id number] [place] [address] HCO3 (Bld) [Moles/Vol] 33 mmol/L High 21 - 32 [facility] Comment on above: Performed By: #### R ENAL ####[id number] [place] [address] Phosphate [Mass/Vol] 3.6 mg/dL Normal 2.5 - 4.9 [facility] Comment on above: Result Comment: The performance characteristics of phosphorus testing in heparinized plasma have been validated by the individual laboratory site where testing is performed. Testing on heparinized plasma is not approved by the FDA; however, such approval is not necessary. Performed By: #### R ENAL ####[id number] [place] [address] Potassium [Moles/Vol] 3.9 mmol/L Normal 3.5 - 5.3 [facility] Comment on above: Performed By: #### R ENAL ####[id number] [place] [address] Sodium [Moles/Vol] 136 mmol/L Normal 136 - 145 [facility] Comment on above: Performed By: #### R ENAL ####[id number] [place] [address] Urea nitrogen [Mass/Vol] 34 mg/dL High 6 - 23 [facility] Comment on above: Performed By: #### R ENAL ####[id number] [place] [address] Albumin [Mass/Vol] 3.5 g/dL Normal 3.4 - 5.0 [facility] Comment on above: Performed By: #### R ENAL ####[id number] [place] [address] Anion gap [Moles/Vol] 15 mmol/L Normal 10 - 20 [facility] Comment on above: Performed By: #### R ENAL ####[id number] [place] [address] Calcium [Mass/Vol] 8.9 mg/dL Normal 8.6 - 10.6 [facility] Comment on above: Performed By: #### R ENAL ####[id number] [place] [address] Chloride [Moles/Vol] 94 mmol/L Low 98 - 107 [facility] Comment on above: Performed By: #### R ENAL ####[id number] [place] [address] Creatinine [Mass/Vol] 1.34 mg/dL High 0.50 - 1.30 [facility] Comment on above: Performed By: #### R ENAL ####[id number] [place] [address] GFR/1.73 sq M.predicted among non-blacks MDRD (S/P/Bld) [Vol rate/Area] 67 mL/min/{1.73_m2} Normal >90 [facility] Comment on above: Result Comment: CALC ULATIONS OF ESTIMATED GFR ARE PERFORMED USING THE 2020 CKD-EPI STUDY REFIT EQUATION WITHOUT THE RACE VARIABLE FOR THE IDMS-TRACEABLE CREATININE METHODS.https://jasn.asnjournals.org/content/early//A SN.7332934372 Performed By: #### R ENAL ####[id number] [place] [address] Glucose [Mass/Vol] 85 mg/dL Normal 74 - 99 [facility] Comment on above: Performed By: #### R ENAL ####[id number] [place] [address] HCO3 (Bld) [Moles/Vol] 32 mmol/L Normal 21 - 32 [facility] Comment on above: Performed By: #### R ENAL ####[id number] [place] [address] Phosphate [Mass/Vol] 4.3 mg/dL Normal 2.5 - 4.9 [facility] Comment on above: Result Comment: The performance characteristics of phosphorus testing in heparinized plasma have been validated by the individual laboratory site where testing is performed. Testing on heparinized plasma is not approved by the FDA; however, such approval is not necessary. Performed By: #### R ENAL ####[id number] [place] [address] Potassium [Moles/Vol] 3.8 mmol/L Normal 3.5 - 5.3 [facility] Comment on above: Performed By: #### R ENAL ####[id number] [place] [address] Sodium [Moles/Vol] 137 mmol/L Normal 136 - 145 [facility] Comment on above: Performed By: #### R ENAL ####[id number] [place] [address] Urea nitrogen [Mass/Vol] 32 mg/dL High 6 - 23 [facility] Comment on above: Performed By: #### R ENAL ####[id number] [place] [address] Albumin [Mass/Vol] 3.5 g/dL Normal 3.4 - 5.0 [facility] Comment on above: Performed By: #### R ENAL ####[id number] [place] [address] Anion gap [Moles/Vol] 20 mmol/L Normal 10 - 20 [facility] Comment on above: Performed By: #### R ENAL ####[id number] [place] [address] Calcium [Mass/Vol] 8.8 mg/dL Normal 8.6 - 10.6 [facility] Comment on above: Performed By: #### R ENAL ####[id number] [place] [address] Chloride [Moles/Vol] 93 mmol/L Low 98 - 107 [facility] Comment on above: Performed By: #### R ENAL ####[id number] [place] [address] Creatinine [Mass/Vol] 1.71 mg/dL High 0.50 - 1.30 [facility] Comment on above: Performed By: #### R ENAL ####[id number] [place] [address] GFR/1.73 sq M.predicted among non-blacks MDRD (S/P/Bld) [Vol rate/Area] 50 mL/min/{1.73_m2} Abnormal >90 [facility] Comment on above: Result Comment: CALC ULATIONS OF ESTIMATED GFR ARE PERFORMED USING THE 2020 CKD-EPI STUDY REFIT EQUATION WITHOUT THE RACE VARIABLE FOR THE IDMS-TRACEABLE CREATININE METHODS.https://jasn.asnjournals.org/content//A SN.3119350861 Performed By: #### R ENAL ####[id number] [place] [address] Glucose [Mass/Vol] 87 mg/dL Normal 74 - 99 [facility] Comment on above: Performed By: #### R ENAL ####[id number] [place] [address] HCO3 (Bld) [Moles/Vol] 32 mmol/L Normal 21 - 32 [facility] Comment on above: Performed By: #### R ENAL ####[id number] [place] [address] Phosphate [Mass/Vol] 4.9 mg/dL Normal 2.5 - 4.9 [facility] Comment on above: Result Comment: The performance characteristics of phosphorus testing in heparinized plasma have been validated by the individual laboratory site where testing is performed. Testing on heparinized plasma is not approved by the FDA; however, such approval is not necessary. Performed By: #### R ENAL ####[id number] [place] [address] Potassium [Moles/Vol] 3.8 mmol/L Normal 3.5 - 5.3 [facility] Comment on above: Performed By: #### R ENAL ####[id number] [place] [address] Sodium [Moles/Vol] 141 mmol/L Normal 136 - 145 [facility] Comment on above: Performed By: #### R ENAL ####[id number] [place] [address] Urea nitrogen [Mass/Vol] 35 mg/dL High 6 - 23 [facility] Comment on above: Performed By: #### R ENAL ####[id number] [place] [address] Radiologyon 08-22-2022 XR Chest Single view Normal [facility] Work Phone: Renal Function Panelon 08-22 Albumin BCP dye [Mass/Vol] 3.5 g/dL 3.4 - 5.0 [facility] Work Phone: Anion gap [Moles/Vol] 13 mmol/L 10 - 20 [facility] Work Phone: Calcium [Mass/Vol] 8.8 mg/dL 8.6 - 10.6 -[facility] Work Phone: Chloride [Moles/Vol] 94 mmol/L below low threshold 98 - 107 [facility] Work Phone: CO2 [Moles/Vol] 33 mmol/L above high threshold 21 - 32 [facility] Work Phone: Creatinine [Mass/Vol] 1.51 mg/dL above high threshold See Below [facility] Work Phone: Comment on above: Reference Range: 0.5 0 - 1.30 Glucose [Mass/Vol] 112 mg/dL above high threshold 74 - 99 [facility] Work Phone: Phosphate [Mass/Vol] 3.6 mg/dL 2.5 - 4.9 -[facility] Work Phone: Comment on above: The performance chidi acteristics of phosphorus testing in heparinized plasma have been validated by the individual laboratory site where testing is performed. Testing on heparinized plasma is not approved by the FDA; however, such approval is not necessary. Potassium [Moles/Vol] 3.9 mmol/L 3.5 - 5.3 [facility] Work Phone: Sodium [Moles/Vol] 136 mmol/L 136 - 145 -[facility] Work Phone: Urea nitrogen [Mass/Vol] 34 mg/dL above high threshold 6 - 23 [facility] Work Phone: Renal Function Panel 58 {mL/min/1.73m2} Abnormal >90 [facility] Work Phone: Comment on above: CALCULATIONS OF ISMA MATED GFR ARE PERFORMED USING THE 2020 CKD-EPI STUDY REFIT EQUATION WITHOUT THE RACE VARIABLE FOR THE IDMS-TRACEABLE CREATININE METHODS.https://jasn.asnjournals.org/content//A SN.1050718748 Albumin BCP dye [Mass/Vol] 3.5 g/dL 3.4 - 5.0 [facility] Work Phone: Anion gap [Moles/Vol] 15 mmol/L 10 - 20 [facility] Work Phone: Calcium [Mass/Vol] 8.9 mg/dL 8.6 - 10.6 [facility] Work Phone: Chloride [Moles/Vol] 94 mmol/L below low threshold 98 - 107 [facility] Work Phone: CO2 [Moles/Vol] 32 mmol/L 21 - 32 [facility] Work Phone: Creatinine [Mass/Vol] 1.34 mg/dL above high threshold See Below [facility] Work Phone: Comment on above: Reference Range: 0.5 0 - 1.30 Glucose [Mass/Vol] 85 mg/dL 74 - 99 [facility] Work Phone: Phosphate [Mass/Vol] 4.3 mg/dL 2.5 - 4.9 [facility] Work Phone: Comment on above: The performance chidi acteristics of phosphorus testing in heparinized plasma have been validated by the individual laboratory site where testing is performed. Testing on heparinized plasma is not approved by the FDA; however, such approval is not necessary. Potassium [Moles/Vol] 3.8 mmol/L 3.5 - 5.3 [facility] Work Phone: Sodium [Moles/Vol] 137 mmol/L 136 - 145 [facility] Work Phone: Urea nitrogen [Mass/Vol] 32 mg/dL above high threshold 6 - 23 [facility] Work Phone: Renal Function Panel 67 {mL/min/1.73m2} >90 [facility] Work Phone: Comment on above: CALCULATIONS OF ISMA MATED GFR ARE PERFORMED USING THE 2020 CKD-EPI STUDY REFIT EQUATION WITHOUT THE RACE VARIABLE FOR THE IDMS-TRACEABLE CREATININE METHODS.https://jasn.asnjournals.org/content/early/A SN.0026243051 TH CHEST 1 VIEWon 08-22-2022 TH CHEST 1 VIEW Normal [facility] ARTERIAL FULL PANELon 2022 Anion gap [Moles/Vol] 6 mmol/L Low 10 - 25 [facility] Comment on above: Performed By: #### A FPA4 ####[id number] [place] [address] BASE EXCESS-BLOOD 8.4 mmol/L High -2.0 - 3.0 [facility] Comment on above: Performed By: #### A FPA4 ####[id number] [place] [address] BICARB, CALCULATED 33.4 mmol/L High 22.0 - 26.0 [facility] Comment on above: Performed By: #### A FPA4 ####[id number] [place] [address] CALCIUM,IONIZED 1.14 mmol/L Normal 1.10 - 1.33 [facility] Comment on above: Performed By: #### A FPA4 ####[id number] [place] [address] Chloride [Moles/Vol] 98 mmol/L Normal 98 - 107 [facility] Comment on above: Performed By: #### A FPA4 ####[id number] [place] [address] Glucose [Mass/Vol] 105 mg/dL High 74 - 99 [facility] Comment on above: Performed By: #### A FPA4 ####[id number] [place] [address] Hematocrit (Bld) [Volume fraction] 37.0 % Low 41.0 - 52.0 [facility] Comment on above: Performed By: #### A FPA4 ####[id number] [place] [address] Hemoglobin (Bld) [Mass/Vol] 12.2 g/dL Low 13.5 - 17.5 [facility] Comment on above: Performed By: #### A FPA4 ####[id number] [place] [address] Lactate [Moles/Vol] 1.0 mmol/L Normal 0.4 - 2.0 [facility] Comment on above: Performed By: #### A FPA4 ####[id number] [place] [address] OXY HGB 94.7 % Normal 94.0 - 98.0 [facility] Comment on above: Performed By: #### A FPA4 ####[id number] [place] [address] Oxygen (Bld) [Partial pressure] 79 mm[Hg] Low 85 - 95 [facility] Comment on above: Performed By: #### A FPA4 ####[id number] [place] [address] PATIENT TEMPERATURE 37.0 degrees C Normal [facility] Comment on above: Result Comment: NOTE : PATIENT RESULTS ARE NOT CORRECTED FOR TEMPERATURE. Performed By: #### A FPA4 ####[id number] [place] [address] PCO2 47 mmHg High 38 - 42 [facility] Comment on above: Performed By: #### A FPA4 ####[id number] [place] [address] pH (Bld) 7.46 [pH] High 7.38 - 7.42 [facility] Comment on above: Performed By: #### A FPA4 ####[id number] [place] [address] Potassium [Moles/Vol] 3.5 mmol/L Normal 3.5 - 5.3 [facility] Comment on above: Performed By: #### A FPA4 ####[id number] [place] [address] SO2 97 % Normal 94 - 100 [facility] Comment on above: Performed By: #### A FPA4 ####[id number] [place] [address] Sodium [Moles/Vol] 134 mmol/L Low 136 - 145 [facility] Comment on above: Performed By: #### A FPA4 ####[id number] [place] [address] Anion gap [Moles/Vol] 4 mmol/L Low 10 - 25 [facility] Comment on above: Performed By: #### A FPA4 ####[id number] [place] [address] BASE EXCESS-BLOOD 8.3 mmol/L High -2.0 - 3.0 [facility] Comment on above: Performed By: #### A FPA4 ####[id number] [place] [address] BICARB, CALCULATED 33.4 mmol/L High 22.0 - 26.0 [facility] Comment on above: Performed By: #### A FPA4 ####[id number] [place] [address] CALCIUM,IONIZED 1.09 mmol/L Low 1.10 - 1.33 [facility] Comment on above: Performed By: #### A FPA4 ####[id number] [place] [address] Chloride [Moles/Vol] 103 mmol/L Normal 98 - 107 [facility] Comment on above: Performed By: #### A FPA4 ####[id number] [place] [address] Glucose [Mass/Vol] 80 mg/dL Normal 74 - 99 [facility] Comment on above: Performed By: #### A FPA4 ####[id number] [place] [address] Hematocrit (Bld) [Volume fraction] 30.0 % Low 41.0 - 52.0 [facility] Comment on above: Performed By: #### A FPA4 ####[id number] [place] [address] Hemoglobin (Bld) [Mass/Vol] 9.9 g/dL Low 13.5 - 17.5 [facility] Comment on above: Performed By: #### A FPA4 ####[id number] [place] [address] Lactate [Moles/Vol] 0.7 mmol/L Normal 0.4 - 2.0 [facility] Comment on above: Performed By: #### A FPA4 ####[id number] [place] [address] OXY HGB 94.9 % Normal 94.0 - 98.0 [facility] Comment on above: Performed By: #### A FPA4 ####[id number] [place] [address] Oxygen (Bld) [Partial pressure] 81 mm[Hg] Low 85 - 95 [facility] Comment on above: Performed By: #### A FPA4 ####[id number] [place] [address] PATIENT TEMPERATURE 37.0 degrees C Normal [facility] Comment on above: Result Comment: NOTE : PATIENT RESULTS ARE NOT CORRECTED FOR TEMPERATURE. Performed By: #### A FPA4 ####[id number] [place] [address] PCO2 48 mmHg High 38 - 42 [facility] Comment on above: Performed By: #### A FPA4 ####[id number] [place] [address] pH (Bld) 7.45 [pH] High 7.38 - 7.42 [facility] Comment on above: Performed By: #### A FPA4 ####[id number] [place] [address] Potassium [Moles/Vol] 3.6 mmol/L Normal 3.5 - 5.3 [facility] Comment on above: Performed By: #### A FPA4 ####[id number] [place] [address] SO2 97 % Normal 94 - 100 [facility] Comment on above: Performed By: #### A FPA4 ####[id number] [place] [address] Sodium [Moles/Vol] 137 mmol/L Normal 136 - 145 [facility] Comment on above: Performed By: #### A FPA4 ####[id number] [place] [address] Anion gap [Moles/Vol] 6 mmol/L Low 10 - 25 [facility] Comment on above: Performed By: #### A FPA4 ####[id number] [place] [address] BASE EXCESS-BLOOD 5.2 mmol/L High -2.0 - 3.0 [facility] Comment on above: Performed By: #### A FPA4 ####[id number] [place] [address] BICARB, CALCULATED 29.9 mmol/L High 22.0 - 26.0 [facility] Comment on above: Performed By: #### A FPA4 ####[id number] [place] [address] CALCIUM,IONIZED 1.08 mmol/L Low 1.10 - 1.33 [facility] Comment on above: Performed By: #### A FPA4 ####[id number] [place] [address] Chloride [Moles/Vol] 103 mmol/L Normal 98 - 107 [facility] Comment on above: Performed By: #### A FPA4 ####[id number] [place] [address] Glucose [Mass/Vol] 129 mg/dL High 74 - 99 [facility] Comment on above: Performed By: #### A FPA4 ####[id number] [place] [address] Hematocrit (Bld) [Volume fraction] 25.0 % Low 41.0 - 52.0 [facility] Comment on above: Performed By: #### A FPA4 ####[id number] [place] [address] Hemoglobin (Bld) [Mass/Vol] 8.3 g/dL Low 13.5 - 17.5 [facility] Comment on above: Performed By: #### A FPA4 ####[id number] [place] [address] Lactate [Moles/Vol] 0.8 mmol/L Normal 0.4 - 2.0 [facility] Comment on above: Performed By: #### A FPA4 ####[id number] [place] [address] OXY HGB 97.2 % Normal 94.0 - 98.0 [facility] Comment on above: Performed By: #### A FPA4 ####[id number] [place] [address] Oxygen (Bld) [Partial pressure] 145 mm[Hg] High 85 - 95 [facility] Comment on above: Performed By: #### A FPA4 ####[id number] [place] [address] PATIENT TEMPERATURE 37.0 degrees C Normal [facility] Comment on above: Result Comment: NOTE : PATIENT RESULTS ARE NOT CORRECTED FOR TEMPERATURE. Performed By: #### A FPA4 ####[id number] [place] [address] PCO2 44 mmHg High 38 - 42 [facility] Comment on above: Performed By: #### A FPA4 ####[id number] [place] [address] pH (Bld) 7.44 [pH] High 7.38 - 7.42 [facility] Comment on above: Performed By: #### A FPA4 ####[id number] [place] [address] Potassium [Moles/Vol] 3.2 mmol/L Low 3.5 - 5.3 [facility] Comment on above: Performed By: #### A FPA4 ####[id number] [place] [address] SO2 99 % Normal 94 - 100 [facility] Comment on above: Performed By: #### A FPA4 ####[id number] [place] [address] Sodium [Moles/Vol] 136 mmol/L Normal 136 - 145 [facility] Comment on above: Performed By: #### A FPA4 ####[id number] [place] [address] BASIC METABOLIC PANELon 07-0 Anion gap [Moles/Vol] 16 mmol/L Normal 10 - 20 [facility] Comment on above: Performed By: #### B MP ####[id number] [place] [address] Calcium [Mass/Vol] 9.0 mg/dL Normal 8.6 - 10.6 [facility] Comment on above: Performed By: #### B MP ####[id number] [place] [address] Chloride [Moles/Vol] 94 mmol/L Low 98 - 107 [facility] Comment on above: Performed By: #### B MP ####[id number] [place] [address] Creatinine [Mass/Vol] 1.53 mg/dL High 0.50 - 1.30 [facility] Comment on above: Performed By: #### B MP ####[id number] [place] [address] GFR/1.73 sq M.predicted among non-blacks MDRD (S/P/Bld) [Vol rate/Area] 57 mL/min/{1.73_m2} Abnormal >90 [facility] Comment on above: Result Comment: CALC ULATIONS OF ESTIMATED GFR ARE PERFORMED USING THE 2020 CKD-EPI STUDY REFIT EQUATION WITHOUT THE RACE VARIABLE FOR THE IDMS-TRACEABLE CREATININE METHODS.https://jasn.asnjournals.org/content//A SN.8657927087 Performed By: #### B MP ####[id number] [place] [address] Glucose [Mass/Vol] 103 mg/dL High 74 - 99 [facility] Comment on above: Performed By: #### B MP ####[id number] [place] [address] HCO3 (Bld) [Moles/Vol] 32 mmol/L Normal 21 - 32 [facility] Comment on above: Performed By: #### B MP ####[id number] [place] [address] Potassium [Moles/Vol] 3.8 mmol/L Normal 3.5 - 5.3 [facility] Comment on above: Performed By: #### B MP ####[id number] [place] [address] Sodium [Moles/Vol] 138 mmol/L Normal 136 - 145 [facility] Comment on above: Performed By: #### B MP ####[id number] [place] [address] Urea nitrogen [Mass/Vol] 33 mg/dL High 6 - 23 [facility] Comment on above: Performed By: #### B MP ####[id number] [place] [address] CALCIUM, IONIZEDon 3 CALCIUM,IONIZED 1.11 mmol/L Normal 1.10 - 1.33 [facility] Comment on above: Result Comment: The performance characteristics of ionized calcium tested in heparinized plasma or serum have been validated by the individual laboratory site where testing is performed. Testing on heparinized plasma or serum is not approved by the FDA; however, such approval is not necessary. Performed By: #### I ONC1 ####[id number] [place] [address] CALCIUM,IONIZED 1.12 mmol/L Normal 1.10 - 1.33 [facility] Comment on above: Result Comment: The performance characteristics of ionized calcium tested in heparinized plasma or serum have been validated by the individual laboratory site where testing is performed. Testing on heparinized plasma or serum is not approved by the FDA; however, such approval is not necessary. Performed By: #### I ONC1 ####[id number] [place] [address] CBCon 08-21-2022 Erythrocyte distribution width (RBC) [Ratio] 13.6 % Normal 11.5 - 14.5 [facility] Comment on above: Performed By: #### C BC ####[id number] [place] [address] Hematocrit (Bld) [Volume fraction] 30.1 % Low 41.0 - 52.0 [facility] Comment on above: Performed By: #### C BC ####[id number] [place] [address] Hemoglobin (Bld) [Mass/Vol] 10.0 g/dL Low 13.5 - 17.5 [facility] Comment on above: Performed By: #### C BC ####[id number] [place] [address] MCHC (RBC) [Mass/Vol] 33.2 g/dL Normal 32.0 - 36.0 [facility] Comment on above: Performed By: #### C BC ####[id number] [place] [address] MCV (RBC) [Entitic vol] 95 fL Normal 80 - 100 [facility] Comment on above: Performed By: #### C BC ####[id number] [place] [address] NUCLEATED RBC 0.0 /100 WBC Normal 0.0-0.0 [facility] Comment on above: Performed By: #### C BC ####[id number] [place] [address] Platelets (Bld) [#/Vol] 167 10*3/uL Normal 150 - 450 [facility] Comment on above: Performed By: #### C BC ####[id number] [place] [address] RBC 3.18 x10E12/L Low 4.50 - 5.90 [facility] Comment on above: Performed By: #### C BC ####[id number] [place] [address] WBC (Bld) [#/Vol] 12.3 10*3/uL High 4.4 - 11.3 [facility] Comment on above: Performed By: #### C BC ####[id number] [place] [address] CBC AND DIFFERENTIALon 08-21 % AUTOMATED IMMATURE GRAN 0.5 % Normal 0.0 - 0.9 [facility] Comment on above: Result Comment: Nicki ture Granulocyte Count (IG) includes promyelocytes, myelocytes and metamyelocytes but does not include bands. Percent differential counts (%) should be interpreted in the context of the absolute cell counts (cells/L). Performed By: #### C BCDF ####[id number] [place] [address] Basophils (Bld) [#/Vol] 0.06 10*3/uL Normal 0.00 - 0.10 [facility] Comment on above: Performed By: #### C BCDF ####[id number] [place] [address] Basophils/100 WBC (Bld) 0.5 % Normal 0.0 - 2.0 [facility] Comment on above: Performed By: #### C BCDF ####[id number] [place] [address] Eosinophils (Bld) [#/Vol] 0.33 10*3/uL Normal 0.00 - 0.70 [facility] Comment on above: Performed By: #### C BCDF ####[id number] [place] [address] Eosinophils/100 WBC (Bld) 2.5 % Normal 0.0 - 6.0 [facility] Comment on above: Performed By: #### C BCDF ####[id number] [place] [address] Erythrocyte distribution width (RBC) [Ratio] 13.8 % Normal 11.5 - 14.5 [facility] Comment on above: Performed By: #### C BCDF ####[id number] [place] [address] Hematocrit (Bld) [Volume fraction] 30.9 % Low 41.0 - 52.0 [facility] Comment on above: Performed By: #### C BCDF ####[id number] [place] [address] Hemoglobin (Bld) [Mass/Vol] 10.1 g/dL Low 13.5 - 17.5 [facility] Comment on above: Performed By: #### C BCDF ####[id number] [place] [address] Lymphocytes (Bld) [#/Vol] 1.10 10*3/uL Low 1.20 - 4.80 [facility] Comment on above: Performed By: #### C BCDF ####[id number] [place] [address] Lymphocytes/100 WBC (Bld) 8.3 % Normal 13.0 - 44.0 [facility] Comment on above: Performed By: #### C BCDF ####[id number] [place] [address] MCHC (RBC) [Mass/Vol] 32.7 g/dL Normal 32.0 - 36.0 [facility] Comment on above: Performed By: #### C BCDF ####[id number] [place] [address] MCV (RBC) [Entitic vol] 95 fL Normal 80 - 100 [facility] Comment on above: Performed By: #### C BCDF ####[id number] [place] [address] Monocytes (Bld) [#/Vol] 0.66 10*3/uL Normal 0.10 - 1.00 [facility] Comment on above: Performed By: #### C BCDF ####[id number] [place] [address] Monocytes/100 WBC (Bld) 5.0 % Normal 2.0 - 10.0 [facility] Comment on above: Performed By: #### C BCDF ####[id number] [place] [address] Neutrophils (Bld) [#/Vol] 10.98 10*3/uL High 1.20 - 7.70 [facility] Comment on above: Performed By: #### C BCDF ####[id number] [place] [address] Neutrophils/100 WBC (Bld) 83.2 % Normal 40.0 - 80.0 [facility] Comment on above: Performed By: #### C BCDF ####[id number] [place] [address] NUCLEATED RBC 0.0 /100 WBC Normal 0.0-0.0 [facility] Comment on above: Performed By: #### C BCDF ####[id number] [place] [address] Platelets (Bld) [#/Vol] 165 10*3/uL Normal 150 - 450 [facility] Comment on above: Performed By: #### C BCDF ####[id number] [place] [address] RBC 3.25 x10E12/L Low 4.50 - 5.90 [facility] Comment on above: Performed By: #### C BCDF ####[id number] [place] [address] WBC (Bld) [#/Vol] 13.2 10*3/uL High 4.4 - 11.3 [facility] Comment on above: Performed By: #### C BCDF ####[id number] [place] [address] COAGULATION SCREENon 023 aPTT Coag (Bld) [Time] 29 s Normal 27 - 38 [facility] Comment on above: Result Comment: Note new reference range as of 08/02/2022 at 10:00am. Performed By: #### C OAGS ####[id number] [place] [address] PT Coag (PPP) [Time] 14.6 s High 9.8 - 12.8 [facility] Comment on above: Result Comment: Note new reference range as of 08/02/2022 at 10:00am. Performed By: #### C OAGS ####[id number] [place] [address] PT, INR 1.3 High 0.9 - 1.1 [facility] Comment on above: Performed By: #### C OAGS ####[id number] [place] [address] aPTT Coag (Bld) [Time] 29 s Normal 27 - 38 [facility] Comment on above: Result Comment: Note new reference range as of 08/02/2022 at 10:00am. Performed By: #### C OAGS ####[id number] [place] [address] PT Coag (PPP) [Time] 15.0 s High 9.8 - 12.8 [facility] Comment on above: Result Comment: Note new reference range as of 08/02/2022 at 10:00am. Performed By: #### C OAGS ####[id number] [place] [address] PT, INR 1.3 High 0.9 - 1.1 [facility] Comment on above: Performed By: #### C OAGS ####[id number] [place] [address] Calcium, Ionized Levelon Calcium, Ionized Level 1.11 mmol/L See Below [facility] Work Phone: Comment on above: Reference Range: 1.1 0 - 1.33 The performance characteristics of ionized calcium tested in heparinized plasma or serum have been validated by the individual laboratory site where testing is performed. Testing on heparinized plasma or serum is not approved by the FDA; however, such approval is not necessary. Calcium, Ionized Level 1.12 mmol/L See Below [facility] Work Phone: Comment on above: Reference Range: [...] WBC (Bld) 0.5 % 0.0 - 2.0 [facility] Work Phone: Erythrocyte distribution width (RBC) [Ratio] 13.8 % See Below [facility] Work Phone: Comment on above: Reference Range: 11. 5 - 14.5 Hematocrit (Bld) [Volume fraction] 30.9 % below low threshold See Below [facility] Work Phone: Comment on above: Reference Range: 41. 0 - 52.0 Hemoglobin (Bld) [Mass/Vol] 10.1 g/dL below low threshold See Below [facility] Work Phone: Comment on above: Reference Range: 13. 5 - 17.5 Lymphocytes/100 WBC (Bld) 8.3 % See Below [facility] Work Phone: Comment on above: Reference Range: 13. 0 - 44.0 MCHC (RBC) [Mass/Vol] 32.7 g/dL See Below [facility] Work Phone: Comment on above: Reference Range: 32. 0 - 36.0 MCV (RBC) [Entitic vol] 95 fL 80 - 100 [facility] Work Phone: Monocytes/100 WBC (Bld) 5.0 % 2.0 - 10.0 [facility] Work Phone: Neutrophils/100 WBC (Bld) 83.2 % See Below [facility] Work Phone: Comment on above: Reference Range: 40. 0 - 80.0 Platelets (Bld) [#/Vol] 165 10*3/uL 150 - 450 [facility] Work Phone: RBC (Bld) [#/Vol] 3.25 {x10E12/L} below low threshold See Below [facility] Work Phone: Comment on above: Reference Range: 4.5 0 - 5.90 WBC (Bld) [#/Vol] 13.2 10*3/uL above high threshold 4.4 - 11.3 [facility] Work Phone: Complete Blood Count + Differential 0.06 {x10E9/L} See Below [employer] Work Phone: Comment on above: Reference Range: 0.0 0 - 0.10 Complete Blood Count + Differential 0.33 {x10E9/L} See Below [employer] Work Phone: Comment on above: Reference Range: 0.0 0 - 0.70 Complete Blood Count + Differential 0.66 {x10E9/L} See Below [employer] Work Phone: Comment on above: Reference Range: 0.1 0 - 1.00 Complete Blood Count + Differential 1.10 {x10E9/L} below low threshold See Below [employer] Work Phone: Comment on above: Reference Range: 1.2 0 - 4.80 Complete Blood Count + Differential 10.98 {x10E9/L} above high threshold See Below [employer] Work Phone: Comment on above: Reference Range: 1.2 0 - 7.70 Complete Blood Count + Differential 2.5 % 0.0 - 6.0 [employer] Work Phone: Complete Blood Count + Differential 0.5 % 0.0 - 0.9 [employer] Work Phone: Comment on above: Immature Granulocyte Count (IG) includes promyelocytes, myelocytes and metamyelocytes but does not include bands. Percent differential counts (%) should be interpreted in the context of the absolute cell counts (cells/L). Complete Blood Count + Differential 0.0 {/100_WBC} 0.0-0.0 [facility] Work Phone: Consult-Vascular Medicineon 08-21-2022 Consult-Vascular Medicine Normal [facility] Daily Progress Note - Critic al Careon 08-21-2022 Daily Progress Note - Critical Care Normal [facility] Daily Progress Note - Critic al Care-CTICUon 08-21-2022 Daily Progress Note - Critical Care-CTICU Normal [facility] Electrocardiogram 12 Leadon 08-21-2022 Electrocardiogram 12 Lead Normal [facility] GLUCOSE-POCTon 08-21-2022 Glucose [Mass/Vol] 75 mg/dL Normal 74 - 99 [facility] Comment on above: Performed By: #### G EDI ####[id number] [place] [address] Glucose [Mass/Vol] 134 mg/dL High 74 - 99 [facility] Comment on above: Performed By: #### G EDI ####[id number] [place] [address] Glucose [Mass/Vol] 130 mg/dL High 74 - 99 [facility] Comment on above: Performed By: #### G EDI ####[id number] [place] [address] HEPARIN ASSAY,UFHon 08-22-19 23 HEPARIN ASSAY,UFH <0.1 Normal [facility] Comment on above: Result Comment: The therapeutic reference range for UFH may be either 0.3-0.6 IU/mL or 0.3-0.7 IU/mL based on the clinical setting for anticoagulant therapy and the associated nomogram used. For heparin dosing guidelines based on clinical scenario and Heparin Assay results, please refer to local Pharmacy and the [facility] Guidelines for Anticoagulation therapy available on the [facility] intranet at:[email or web address]_Guidelines_for_[email or web address].aspx Performed By: #### H AUF ####[id number] [place] [address] HEPARIN ASSAY,UFH <0.1 Normal [facility] Comment on above: Result Comment: The therapeutic reference range for UFH may be either 0.3-0.6 IU/mL or 0.3-0.7 IU/mL based on the clinical setting for anticoagulant therapy and the associated nomogram used. For heparin dosing guidelines based on clinical scenario and Heparin Assay results, please refer to local Pharmacy and the [facility] Guidelines for Anticoagulation therapy available on the [facility] intranet at:[email or web address]/Pages/[facility]_Guidelines_for_Anticoagu.aspx Performed By: #### H AUF ####[id number] [id number] HEPARIN ASSAY,UFH <0.1 Normal [facility] Comment on above: Result Comment: The therapeutic reference range for UFH may be either 0.3-0.6 IU/mL or 0.3-0.7 IU/mL based on the clinical setting for anticoagulant therapy and the associated nomogram used. For heparin dosing guidelines based on clinical scenario and Heparin Assay results, please refer to local Pharmacy and [facility] Guidelines for Anticoagulation therapy available on the [facility] intranet at:[email or web address]/[email or web address]/Pages/[email or web address]_Guidelines_for_Anticoagu.aspx Performed By: #### H AUF ####[id number] [place] [address] HEPARIN ASSAY,UFH Canceled Normal [facility] Comment on above: Order Comment: TEST HEPARIN [...] please refer to local Pharmacy and the [facility] Guidelines for Anticoagulation therapy available on the [facility] intranet at:[email or web address]/[email or web address]_Guidelines_for_[email or web address].aspx Performed By: #### H AUF ####[id number] [place] [address] HEPARIN ASSAY,UFH <0.1 Normal [facility] Comment on above: Result Comment: The therapeutic reference range for UFH may be either 0.3-0.6 IU/mL or 0.3-0.7 IU/mL based on the clinical setting for anticoagulant therapy and the associated nomogram used. For heparin dosing guidelines based on clinical scenario and Heparin Assay results, please refer to local Pharmacy and the [facility] Guidelines for Anticoagulation therapy available on the [facility] intranet at:[email or web address]/Pages/[facility]_Guidelines_for_Anticoagu.aspx Performed By: #### H AUF ####[id number] [place] [address] Heparin assay, UFHon 023 Heparin unfractionated Chromogenic method Qn (PPP) <0.1 [facility] Work Phone: Comment on above: The therapeutic refe rence range for UFH may be either 0.3-0.6 IU/mL or 0.3-0.7 IU/mL based on the clinical setting for anticoagulant therapy and the associated nomogram used. For heparin dosing guidelines based on clinical scenario and Heparin Assay results, please refer to local Pharmacy and [facility] Guidelines for Anticoagulation therapy available on the [facility] intranet at:[email or web address]/Pages/[facility]_Guidelines_for_Anticoagu.aspx Heparin unfractionated Chromogenic method Qn (PPP) Canceled [facility] Work Phone: Comment on above: The therapeutic refe rence range for UFH may be either 0.3-0.6 IU/mL or 0.3-0.7 IU/mL based on the clinical setting for anticoagulant therapy and the associated nomogram used. For heparin dosing guidelines based on clinical scenario and Heparin Assay results, please refer to local Pharmacy and the [facility] Guidelines for Anticoagulation therapy available on the [facility] intranet at:[email or web address]/Pages/[email or web address]_Guidelines_for_Anticoagu.aspx Heparin unfractionated Chromogenic method Qn (PPP) <0.1 [facility] Work Phone: Comment on above: The therapeutic refe rence range for UFH may be either 0.3-0.6 IU/mL or 0.3-0.7 IU/mL based on the clinical setting for anticoagulant therapy and the associated nomogram used. For heparin dosing guidelines based on clinical scenario and Heparin Assay results, please refer to local Pharmacy and [facility] Guidelines for Anticoagulation therapy available on the [facility] intranet at:[email or web address]/[email or web address]/Pages/[facility]_Guidelines_for_Anticoagu.aspx Heparin unfractionated Chromogenic method Qn (PPP) <0.1 [facility] Work Phone: Comment on above: The therapeutic refe rence range for UFH may be either 0.3-0.6 IU/mL or 0.3-0.7 IU/mL based on the clinical setting for anticoagulant therapy and the associated nomogram used. For heparin dosing guidelines based on clinical scenario and Heparin Assay results, please refer to local Pharmacy and [facility] Guidelines for Anticoagulation therapy available on the [facility] intranet at:[email or web address]/[email or web address]_Guidelines_for_Anticoagu.aspx Heparin unfractionated Chromogenic method Qn (PPP) <0.1 [facility] Work Phone: Comment on above: The therapeutic refe rence range for UFH may be either 0.3-0.6 IU/mL or 0.3-0.7 IU/mL based on the clinical setting for anticoagulant therapy and the associated nomogram used. For heparin dosing guidelines based on clinical scenario and Heparin Assay results, please refer to local Pharmacy and [facility] Guidelines for Anticoagulation therapy available on the [facility] intranet at:[email or web address]/Pages/[facility]_Guidelines_for_Anticoagu.aspx Heparin unfractionated Chromogenic method Qn (PPP) Canceled [facility] Work Phone: Comment on above: The therapeutic refe rence range for UFH may be either 0.3-0.6 IU/mL or 0.3-0.7 IU/mL based on the clinical setting for anticoagulant therapy and the associated nomogram used. For heparin dosing guidelines based on clinical scenario and Heparin Assay results, please refer to local Pharmacy and the [facility] Guidelines for Anticoagulation therapy available on the [facility] intranet at:[email or web address]/Pages/[facility]_Guidelines_for_Anticoagu.aspx Laboratory - Chemistry and C hemistry - challengeon 08-21-2022 Anion gap [Moles/Vol] 16 mmol/L 10 - 20 [facility] Work Phone: Calcium [Mass/Vol] 9.0 mg/dL 8.6 - 10.6 [facility] Work Phone: Chloride [Moles/Vol] 94 mmol/L below low threshold 98 - 107 [facility] Work Phone: CO2 [Moles/Vol] 32 mmol/L 21 - 32 [facility] Work Phone: Creatinine [Mass/Vol] 1.53 mg/dL above high threshold See Below [facility] Work Phone: Comment on above: Reference Range: 0.5 0 - 1.30 Glucose [Mass/Vol] 103 mg/dL above high threshold 74 - 99 [facility] Work Phone: Potassium [Moles/Vol] 3.8 mmol/L 3.5 - 5.3 [facility] Work Phone: Sodium [Moles/Vol] 138 mmol/L 136 - 145 [facility] Work Phone: Urea nitrogen [Mass/Vol] 33 mg/dL above high threshold 6 - 23 [facility] Work Phone: Anion gap 4 (BldA) [Moles/Vol] 6 mmol/L below low threshold 10 - 25 [employer] Work Phone: Base excess Calc (Bld) [Moles/Vol] 8.4 mmol/L above high threshold -2.0 - 3.0 [employer] Work Phone: Calcium.ionized (BldA) [Moles/Vol] 1.14 mmol/L See Below [employer] Work Phone: Comment on above: Reference Range: 1.1 0 - 1.33 Chloride (BldA) [Moles/Vol] 98 mmol/L 98 - 107 [employer] Work Phone: CO2 (Bld) [Partial pressure] 47 mm[Hg] above high threshold 38 - 42 [employer] Work Phone: Glucose [Mass/Vol] 105 mg/dL above high threshold 74 - 99 [employer] Work Phone: HCO3 (Bld) [Moles/Vol] 33.4 mmol/L above hig h threshold See Below [employer] Work Phone: Comment on above: Reference Range: 22. 0 - 26.0 Lactate (BldA) [Moles/Vol] 1.0 mmol/L 0.4 - 2.0 [employer] Work Phone: Oxygen (Bld) [Partial pressure] 79 mm[Hg] below low threshold 85 - 95 [employer] Work Phone: Oxyhemoglobin (BldA) [Mass fraction] 94.7 % See Below [employer] Work Phone: Comment on above: Reference Range: 94. 0 - 98.0 pH (Bld) 7.46 [pH] above high threshold See Below [employer] Work Phone: Comment on above: Reference Range: 7.3 8 - 7.42 Potassium (BldA) [Moles/Vol] 3.5 mmol/L 3.5 - 5.3 [employer] Work Phone: Sodium (BldA) [Moles/Vol] 134 mmol/L below low threshold 136 - 145 [facility] Work Phone: Glucose [Mass/Vol] 75 mg/dL 74 - 99 [employer] [facility] Work Phone: Anion gap 4 (BldA) [Moles/Vol] 4 mmol/L below low threshold 10 - 25 [employer] Work Phone: Base excess Calc (Bld) [Moles/Vol] 8.3 mmol/L above high threshold -2.0 - 3.0 [employer] Work Phone: Calcium.ionized (BldA) [Moles/Vol] 1.09 mmol/L below low threshold See Below [employer] Work Phone: Comment on above: Reference Range: 1.1 0 - 1.33 Chloride (BldA) [Moles/Vol] 103 mmol/L 98 - 107 [employer] Work Phone: CO2 (Bld) [Partial pressure] 48 mm[Hg] above high threshold 38 - 42 [employer] Work Phone: Glucose [Mass/Vol] 80 mg/dL 74 - 99 [employer] Work Phone: HCO3 (Bld) [Moles/Vol] 33.4 mmol/L above hig h threshold See Below [employer] Work Phone: Comment on above: Reference Range: 22. 0 - 26.0 Lactate (BldA) [Moles/Vol] 0.7 mmol/L 0.4 - 2.0 [employer] Work Phone: Oxygen (Bld) [Partial pressure] 81 mm[Hg] below low threshold 85 - 95 [employer] Work Phone: Oxyhemoglobin (BldA) [Mass fraction] 94.9 % See Below [employer] Work Phone: Comment on above: Reference Range: 94. 0 - 98.0 pH (Bld) 7.45 [pH] above high threshold See Below [facility] Work Phone: Comment on above: Reference Range: 7.3 8 - 7.42 Potassium (BldA) [Moles/Vol] 3.6 mmol/L 3.5 - 5.3 -[facility] Work Phone: Sodium (BldA) [Moles/Vol] 137 mmol/L 136 - 145 [facility] Work Phone: Anion gap 4 (BldMV) [Moles/Vol] 6 mmol/L below low threshold 10 - 25 -[facility] Work Phone: Base excess Calc (BldMV) [Moles/Vol] 3.9 mmol/L [facility] Work Phone: Calcium.ionized (BldMV) [Moles/Vol] 1.05 mmol/L below low threshold See Below -[facility] Work Phone: Comment on above: Reference Range: 1.1 0 - 1.33 Chloride [Moles/Vol] 102 mmol/L 98 - 107 -C [facility] Work Phone: CO2 (BldMV) [Partial pressure] 51 {mmHg} -[facility] Work Phone: Glucose [Mass/Vol] 123 mg/dL above high threshold 74 - 99 -[facility] Work Phone: HCO3 (BldMV) [Moles/Vol] 30.2 mmol/L -[facility] Work Phone: Lactate (BldMV) [Moles/Vol] 0.8 mmol/L 0.4 - 2.0 [facility] Work Phone: Oxygen (BldMV) [Partial pressure] 47 {mmHg} -[facility] Work Phone: Oxyhemoglobin (BldMV) [Mass fraction] 70.3 % See Below [employer] Work Phone: Comment on above: Reference Range: 45. 0 - 75.0 pH (BldMV) 7.38 1 [employer] Work Phone: Potassium (BldMV) [Moles/Vol] 3.0 mmol/L below low threshold 3.5 - 5.3 [employer] Work Phone: Sodium (BldMV) [Moles/Vol] 135 mmol/L below low threshold 136 - 145 [employer] Work Phone: Anion gap 4 (BldA) [Moles/Vol] 6 mmol/L below low threshold 10 - 25 [employer] Work Phone: Base excess Calc (Bld) [Moles/Vol] 5.2 mmol/L above high threshold -2.0 - 3.0 [employer] Work Phone: Calcium.ionized (BldA) [Moles/Vol] 1.08 mmol/L below low threshold See Below [employer] Work Phone: Comment on above: Reference Range: 1.1 0 - 1.33 Chloride (BldA) [Moles/Vol] 103 mmol/L 98 - 107 [employer] Work Phone: CO2 (Bld) [Partial pressure] 44 mm[Hg] above high threshold 38 - 42 [employer] Work Phone: Glucose [Mass/Vol] 129 mg/dL above high threshold 74 - 99 [employer] Work Phone: HCO3 (Bld) [Moles/Vol] 29.9 mmol/L above hig h threshold See Below [employer] Work Phone: Comment on above: Reference Range: 22. 0 - 26.0 Lactate (BldA) [Moles/Vol] 0.8 mmol/L 0.4 - 2.0 [employer] Work Phone: Oxygen (Bld) [Partial pressure] 145 mm[Hg] above high threshold 85 - 95 [employer] Work Phone: Oxyhemoglobin (BldA) [Mass fraction] 97.2 % See Below [employer] Work Phone: Comment on above: Reference Range: 94. 0 - 98.0 pH (Bld) 7.44 [pH] above high threshold See Below [employer] Work Phone: Comment on above: Reference Range: 7.3 8 - 7.42 Potassium (BldA) [Moles/Vol] 3.2 mmol/L below low threshold 3.5 - 5.3 [employer] Work Phone: Sodium (BldA) [Moles/Vol] 136 mmol/L 136 - 145 [employer] Work Phone: Glucose [Mass/Vol] 134 mg/dL above high threshold 74 - 99 [employer] Work Phone: Laboratory - Coagulationon 0 - aPTT Coag (PPP) [Time] 29 s 27 - 38 [employer] Work Phone: Comment on above: Note new reference r dima as of 08/02/2022 at 10:00am. INR Coag (PPP) [Relative time] 1.3 {INR} above high threshold 0.9 - 1.1 [employer] Work Phone: PT Coag (PPP) [Time] 14.6 s above high threshold 9.8 - 12.8 [employer] Work Phone: Comment on above: Note new reference r dima as of 08/02/2022 at 10:00am. aPTT Coag (PPP) [Time] 29 s 27 - 38 [employer] Work Phone: Comment on above: Note new reference r dima as of 08/02/2022 at 10:00am. INR Coag (PPP) [Relative time] 1.3 {INR} above high threshold 0.9 - 1.1 [facility] [employer] Work Phone: PT Coag (PPP) [Time] 15.0 s above high threshold 9.8 - 12.8 [employer] Work Phone: Comment on above: Note new reference r dima as of 08/02/2022 at 10:00am. Laboratory - Hematology and Cell countson 08-21-2022 Erythrocyte distribution width (RBC) [Ratio] 14.1 % See Below [facility] Work Phone: Comment on above: Reference Range: 11. 5 - 14.5 Hematocrit (Bld) [Volume fraction] 33.7 % below low threshold See Below [employer] Work Phone: Comment on above: Reference Range: 41. 0 - 52.0 Hemoglobin (Bld) [Mass/Vol] 10.2 g/dL below low threshold See Below [facility] Work Phone: Comment on above: Reference Range: 13. 5 - 17.5 MCHC (RBC) [Mass/Vol] 30.3 g/dL below low threshold See Below [facility] Work Phone: Comment on above: Reference Range: 32. 0 - 36.0 MCV (RBC) [Entitic vol] 105 fL above high threshold 80 - 100 [facility] Work Phone: Platelets (Bld) [#/Vol] 167 10*3/uL 150 - 450 [employer] Work Phone: RBC (Bld) [#/Vol] 3.20 {x10E12/L} below low threshold See Below [facility] [employer] Work Phone: Comment on above: Reference Range: 4.5 0 - 5.90 WBC (Bld) [#/Vol] 13.1 10*3/uL above high threshold 4.4 - 11.3 [employer] Work Phone: Hematocrit Est (Bld) [Volume fraction] 37.0 % below low threshold See Below [facility] Work Phone: Comment on above: Reference Range: 41. 0 - 52.0 Hemoglobin (Bld) [Mass/Vol] 12.2 g/dL below low threshold See Below [facility] Work Phone: Comment on above: Reference Range: 13. 5 - 17.5 Erythrocyte distribution width (RBC) [Ratio] 13.6 % See Below [facility] Work Phone: Comment on above: Reference Range: 11. 5 - 14.5 Hematocrit (Bld) [Volume fraction] 30.1 % below low threshold See Below [facility] Work Phone: Comment on above: Reference Range: 41. 0 - 52.0 Hemoglobin (Bld) [Mass/Vol] 10.0 g/dL below low threshold See Below [facility] Work Phone: Comment on above: Reference Range: 13. 5 - 17.5 MCHC (RBC) [Mass/Vol] 33.2 g/dL See Below [facility] Work Phone: Comment on above: Reference Range: 32. 0 - 36.0 MCV (RBC) [Entitic vol] 95 fL 80 - 100 [facility] [employer] Work Phone: Platelets (Bld) [#/Vol] 167 10*3/uL 150 - 450 [employer] Work Phone: RBC (Bld) [#/Vol] 3.18 {x10E12/L} below low threshold See Below [facility] Work Phone: Comment on above: Reference Range: 4.5 0 - 5.90 WBC (Bld) [#/Vol] 12.3 10*3/uL above high threshold 4.4 - 11.3 [facility] Work Phone: Hematocrit Est (Bld) [Volume fraction] 30.0 % below low threshold See Below [facility] Work Phone: Comment on above: Reference Range: 41. 0 - 52.0 Hemoglobin (Bld) [Mass/Vol] 9.9 g/dL below low threshold See Below [facility] Work Phone: Comment on above: Reference Range: 13. 5 - 17.5 Hematocrit Est (Bld) [Volume fraction] 43.0 % See Below [facility] Work Phone: Comment on above: Reference Range: 41. 0 - 52.0 Hemoglobin (Bld) [Mass/Vol] 14.4 g/dL See Below [facility] [employer] Work Phone: Comment on above: Reference Range: 13. 5 - 17.5 Hematocrit Est (Bld) [Volume fraction] 25.0 % below low threshold See Below [facility] [employer] Work Phone: Comment on above: Reference Range: 41. 0 - 52.0 Hemoglobin (Bld) [Mass/Vol] 8.3 g/dL below low threshold See Below [employer] Work Phone: Comment on above: Reference Range: 13. 5 - 17.5 MAGNESIUMon 08-21-2022 Magnesium [Mass/Vol] 2.40 mg/dL Normal 1.60 - 2.40 [facility] Comment on above: Performed By: #### M G ####[id number] [place] [address] Magnesium [Mass/Vol] 2.52 mg/dL High 1.60 - 2.40 [facility] Comment on above: Performed By: #### M G ####[id number] [place] [address] MV FULL PANELon 08-21-2022 Anion gap [Moles/Vol] 6 mmol/L Low 10 - 25 [facility] Comment on above: Performed By: #### M VPA4 ####[id number] [place] [address] BASE EXCESS-BLOOD 3.9 mmol/L Normal [facility] Comment on above: Performed By: #### M VPA4 ####[id number] [place] [address] BICARB, CALCULATED 30.2 mmol/L Normal [facility] Comment on above: Performed By: #### M VPA4 ####[id number] [place] [address] CALCIUM,IONIZED 1.05 mmol/L Low 1.10 - 1.33 [facility] Comment on above: Performed By: #### M VPA4 ####[id number] [place] [address] Chloride [Moles/Vol] 102 mmol/L Normal 98 - 107 [facility] Comment on above: Performed By: #### M VPA4 ####[id number] [place] [address] Glucose [Mass/Vol] 123 mg/dL High 74 - 99 [facility] Comment on above: Performed By: #### M VPA4 ####[id number] [place] [address] Hematocrit (Bld) [Volume fraction] 43.0 % Normal 41.0 - 52.0 [facility] Comment on above: Performed By: #### M VPA4 ####[id number] [place] [address] Hemoglobin (Bld) [Mass/Vol] 14.4 g/dL Normal 13.5 - 17.5 [facility] Comment on above: Performed By: #### M VPA4 ####[id number] [place] [address] Lactate [Moles/Vol] 0.8 mmol/L Normal 0.4 - 2.0 [facility] Comment on above: Performed By: #### M VPA4 ####[id number] [place] [address] OXY HGB 70.3 % Normal 45.0 - 75.0 [facility] Comment on above: Performed By: #### M VPA4 ####[id number] [place] [address] Oxygen (Bld) [Partial pressure] 47 mm[Hg] Normal [facility] Comment on above: Performed By: #### M VPA4 ####[id number] [place] [address] PATIENT TEMPERATURE 37.0 degrees Normal [facility] Comment on above: Result Comment: NOTE : PATIENT RESULTS ARE NOT CORRECTED FOR TEMPERATURE. Performed By: #### M VPA4 ####[id number] [place] [address] PCO2 51 mmHg Normal [facility] Comment on above: Performed By: #### M VPA4 ####[id number] [place] [address] pH (Bld) 7.38 [pH] Normal [facility] Comment on above: Performed By: #### M VPA4 ####[id number] [place] [address] Potassium [Moles/Vol] 3.0 mmol/L Low 3.5 - 5.3 [facility] Comment on above: Performed By: #### M VPA4 ####[id number] [place] [address] SO2 72 % Normal [facility] Comment on above: Performed By: #### M VPA4 ####[id number] [place] [address] Sodium [Moles/Vol] 135 mmol/L Low 136 - 145 [facility] Comment on above: Performed By: #### M VPA4 ####[id number] [place] [address] Magnesium, Serumon 3 Magnesium [Mass/Vol] 2.40 mg/dL See Below [facility] Work Phone: Comment on above: Reference Range: 1.6 0 - 2.40 Magnesium [Mass/Vol] 2.52 mg/dL above high threshold See Below [facility] Work Phone: Comment on above: Reference Range: 1.6 0 - 2.40 No Panel Informationon 08-21 0.0 {/100_WBC} 0.0-0.0 [facility] Work Phone: [email or web address]&Date=10-20-2022&Chelsey e=[email or web address]&Elsa tType=ECG&Site=1&Output Type=PDF&Ext=PDF [facility] Work Phone: Atrial flutter with variable A-V block [facility] Work Phone: [phone] Abnormal [facility] Work Phone: [phone] [facility] Work Phone: [phone] [facility] Work Phone: [phone] 1 [facility] Work Phone: [phone] [facility] Work Phone: [phone] [facility] Work Phone: [phone] 1 [facility] Work Phone: [phone] 1 [facility] Work Phone: [phone] 481 1 [facility] Work Phone: [phone] 1 [facility] Work Phone: [phone] 1 [facility] Work Phone: [phone] 1 [facility] Work Phone: [phone] 1 [facility] Work Phone: [phone] 57 {mL/min/1.73m2} Abnormal >90 [facility] Work Phone: Comment on above: CALCULATIONS OF ISMA MATED GFR ARE PERFORMED USING THE 2020 CKD-EPI STUDY REFIT EQUATION WITHOUT THE RACE VARIABLE FOR THE IDMS-TRACEABLE CREATININE METHODS.https://jasn.asnjournals.org/content/early//A SN.5241887241 0.0 {/100_WBC} 0.0-0.0 [facility] Work Phone: 72 % [facility] Work Phone: 37.0 {degrees} [facility] Work Phone: Comment on above: NOTE: PATIENT RESULT S ARE NOT CORRECTED FOR TEMPERATURE. RENAL FUNCTION PANELon 08-21 Albumin [Mass/Vol] 3.6 g/dL Normal 3.4 - 5.0 [facility] Comment on above: Performed By: #### R ENAL ####[id number] [place] [address] Anion gap [Moles/Vol] 14 mmol/L Normal 10 - 20 [facility] Comment on above: Performed By: #### R ENAL ####[id number] [place] [address] Calcium [Mass/Vol] 8.7 mg/dL Normal 8.6 - 10.6 [facility] Comment on above: Performed By: #### R ENAL ####[id number] [place] [address] Chloride [Moles/Vol] 97 mmol/L Low 98 - 107 [facility] Comment on above: Performed By: #### R ENAL ####[id number] [place] [address] Creatinine [Mass/Vol] 1.62 mg/dL High 0.50 - 1.30 [facility] Comment on above: Performed By: #### R ENAL ####[id number] [place] [address] GFR/1.73 sq M.predicted among non-blacks MDRD (S/P/Bld) [Vol rate/Area] 54 mL/min/{1.73_m2} Abnormal >90 [facility] Comment on above: Result Comment: CALC ULATIONS OF ESTIMATED GFR ARE PERFORMED USING THE 2020 CKD-EPI STUDY REFIT EQUATION WITHOUT THE RACE VARIABLE FOR THE IDMS-TRACEABLE CREATININE METHODS.https://jasn.asnjournals.org/content//A SN.6440577840 Performed By: #### R ENAL ####[id number] [place] [address] Glucose [Mass/Vol] 79 mg/dL Normal 74 - 99 [facility] Comment on above: Performed By: #### R ENAL ####[id number] [place] [address] HCO3 (Bld) [Moles/Vol] 34 mmol/L High 21 - 32 [facility] Comment on above: Performed By: #### R ENAL ####[id number] [place] [address] Phosphate [Mass/Vol] 4.8 mg/dL Normal 2.5 - 4.9 [facility] Comment on above: Result Comment: The performance characteristics of phosphorus testing in heparinized plasma have been validated by the individual laboratory site where testing is performed. Testing on heparinized plasma is not approved by the FDA; however, such approval is not necessary. Performed By: #### R ENAL ####[id number] [place] [address] Potassium [Moles/Vol] 3.9 mmol/L Normal 3.5 - 5.3 [facility] Comment on above: Performed By: #### R ENAL ####[id number] [place] [address] Sodium [Moles/Vol] 141 mmol/L Normal 136 - 145 [facility] Comment on above: Performed By: #### R ENAL ####[id number] [place] [address] Urea nitrogen [Mass/Vol] 34 mg/dL High 6 - 23 [facility] Comment on above: Performed By: #### R ENAL ####[id number] [place] [address] Albumin [Mass/Vol] 3.6 g/dL Normal 3.4 - 5.0 [facility] Comment on above: Performed By: #### R ENAL ####[id number] [place] [address] Anion gap [Moles/Vol] 15 mmol/L Normal 10 - 20 [facility] Comment on above: Performed By: #### R ENAL ####[id number] [place] [address] Calcium [Mass/Vol] 8.9 mg/dL Normal 8.6 - 10.6 [facility] Comment on above: Performed By: #### R ENAL ####[id number] [place] [address] Chloride [Moles/Vol] 96 mmol/L Low 98 - 107 [facility] Comment on above: Performed By: #### R ENAL ####[id number] [place] [address] Creatinine [Mass/Vol] 1.52 mg/dL High 0.50 - 1.30 [facility] Comment on above: Performed By: #### R ENAL ####[id number] [place] [address] GFR/1.73 sq M.predicted among non-blacks MDRD (S/P/Bld) [Vol rate/Area] 58 mL/min/{1.73_m2} Abnormal >90 [facility] Comment on above: Result Comment: CALC ULATIONS OF ESTIMATED GFR ARE PERFORMED USING THE 2020 CKD-EPI STUDY REFIT EQUATION WITHOUT THE RACE VARIABLE FOR THE IDMS-TRACEABLE CREATININE METHODS.https://jasn.asnjournals.org/content/early/A SN.3561079713 Performed By: #### R ENAL ####[id number] [place] [address] Glucose [Mass/Vol] 141 mg/dL High 74 - 99 [facility] Comment on above: Performed By: #### R ENAL ####[id number] [place] [address] HCO3 (Bld) [Moles/Vol] 33 mmol/L High 21 - 32 [facility] Comment on above: Performed By: #### R ENAL ####[id number] [place] [address] Phosphate [Mass/Vol] 4.1 mg/dL Normal 2.5 - 4.9 [facility] Comment on above: Result Comment: The performance characteristics of phosphorus testing in heparinized plasma have been validated by the individual laboratory site where testing is performed. Testing on heparinized plasma is not approved by the FDA; however, such approval is not necessary. Performed By: #### R ENAL ####[id number] [place] [address] Potassium [Moles/Vol] 4.0 mmol/L Normal 3.5 - 5.3 [facility] Comment on above: Performed By: #### R ENAL ####[id number] [place] [address] Sodium [Moles/Vol] 140 mmol/L Normal 136 - 145 [facility] Comment on above: Performed By: #### R ENAL ####[id number] [place] [address] Urea nitrogen [Mass/Vol] 34 mg/dL High 6 - 23 [facility] Comment on above: Performed By: #### R ENAL ####[id number] [place] [address] Radiologyon 08-21-2022 XR Chest Single view Normal [facility] Work Phone: Renal Function Panelon 08-21 Albumin BCP dye [Mass/Vol] 3.5 g/dL 3.4 - 5.0 [facility] Work Phone: Anion gap [Moles/Vol] 20 mmol/L 10 - 20 [facility] Work Phone: Calcium [Mass/Vol] 8.8 mg/dL 8.6 - 10.6 [facility] Work Phone: Chloride [Moles/Vol] 93 mmol/L below low threshold 98 - 107 [facility] Work Phone: CO2 [Moles/Vol] 32 mmol/L 21 - 32 -Cardio logy [facility] Work Phone: Creatinine [Mass/Vol] 1.71 mg/dL above high threshold See Below [facility] Work Phone: Comment on above: Reference Range: 0.5 0 - 1.30 Glucose [Mass/Vol] 87 mg/dL 74 - 99 -[facility] Work Phone: Phosphate [Mass/Vol] 4.9 mg/dL 2.5 - 4.9 - [facility] Work Phone: Comment on above: The performance chidi acteristics of phosphorus testing in heparinized plasma have been validated by the individual laboratory site where testing is performed. Testing on heparinized plasma is not approved by the FDA; however, such approval is not necessary. Potassium [Moles/Vol] 3.8 mmol/L 3.5 - 5.3 [facility]iology [employer] Work Phone: Sodium [Moles/Vol] 141 mmol/L 136 - 145 [facility] [employer] [facility] Work Phone: Urea nitrogen [Mass/Vol] 35 mg/dL above high threshold 6 - 23 [facility] Work Phone: Renal Function Panel 50 {mL/min/1.73m2} Abnormal >90 [facility] Work Phone: Comment on above: CALCULATIONS OF ISMA MATED GFR ARE PERFORMED USING THE 2020 CKD-EPI STUDY REFIT EQUATION WITHOUT THE RACE VARIABLE FOR THE IDMS-TRACEABLE CREATININE METHODS.https://jasn.asnjournals.org/content/early//A SN.6760245259 Albumin BCP dye [Mass/Vol] 3.6 g/dL 3.4 - 5.0 [facility] Work Phone: Anion gap [Moles/Vol] 14 mmol/L 10 - 20 [facility] Cardiology [employer] Work Phone: Calcium [Mass/Vol] 8.7 mg/dL 8.6 - 10.6 -Car [employer] [facility] Work Phone: Chloride [Moles/Vol] 97 mmol/L below low threshold 98 - 107 -[facility] Work Phone: CO2 [Moles/Vol] 34 mmol/L above high threshold 21 - 32 [facility] Work Phone: Creatinine [Mass/Vol] 1.62 mg/dL above high threshold See Below [facility] Work Phone: Comment on above: Reference Range: 0.5 0 - 1.30 Glucose [Mass/Vol] 79 mg/dL 74 - 99 -Car [employer] -[employer] Work Phone: Phosphate [Mass/Vol] 4.8 mg/dL 2.5 - 4.9 [employer] -[employer] Work Phone: Comment on above: The performance chidi acteristics of phosphorus testing in heparinized plasma have been validated by the individual laboratory site where testing is performed. Testing on heparinized plasma is not approved by the FDA; however, such approval is not necessary. Potassium [Moles/Vol] 3.9 mmol/L 3.5 - 5.3 [facility] Work Phone: Sodium [Moles/Vol] 141 mmol/L 136 - 145 [facility] Work Phone: Urea nitrogen [Mass/Vol] 34 mg/dL above high threshold 6 - 23 [facility] Work Phone: Renal Function Panel 54 {mL/min/1.73m2} Abnormal >90 [facility] Work Phone: Comment on above: CALCULATIONS OF ISMA MATED GFR ARE PERFORMED USING THE 2020 CKD-EPI STUDY REFIT EQUATION WITHOUT THE RACE VARIABLE FOR THE IDMS-TRACEABLE CREATININE METHODS.https://jasn.asnjournals.org/content//A SN.9685823593 Albumin BCP dye [Mass/Vol] 3.6 g/dL 3.4 - 5.0 -[facility] Work Phone: Anion gap [Moles/Vol] 15 mmol/L 10 - 20 - [facility] Work Phone: Calcium [Mass/Vol] 8.9 mg/dL 8.6 - 10.6 -Car [facility] Work Phone: Chloride [Moles/Vol] 96 mmol/L below low threshold 98 - 107 -[facility] Work Phone: CO2 [Moles/Vol] 33 mmol/L above high threshold 21 - 32 [facility] Work Phone: Creatinine [Mass/Vol] 1.52 mg/dL above high threshold See Below [facility] Work Phone: Comment on above: Reference Range: 0.5 0 - 1.30 Glucose [Mass/Vol] 141 mg/dL above high threshold 74 - 99 [facility] Work Phone: Phosphate [Mass/Vol] 4.1 mg/dL 2.5 - 4.9 -C ardiology -[employer] Work Phone: Comment on above: The performance chidi acteristics of phosphorus testing in heparinized plasma have been validated by the individual laboratory site where testing is performed. Testing on heparinized plasma is not approved by the FDA; however, such approval is not necessary. Potassium [Moles/Vol] 4.0 mmol/L 3.5 - 5.3 - [facility] Work Phone: Sodium [Moles/Vol] 140 mmol/L 136 - 145 [facility] Work Phone: Urea nitrogen [Mass/Vol] 34 mg/dL above high threshold 6 - 23 -[facility] Work Phone: Renal Function Panel 58 {mL/min/1.73m2} Abnormal >90 [facility] Work Phone: Comment on above: CALCULATIONS OF ISMA MATED GFR ARE PERFORMED USING THE 2020 CKD-EPI STUDY REFIT EQUATION WITHOUT THE RACE VARIABLE FOR THE IDMS-TRACEABLE CREATININE METHODS.https://jasn.asnjournals.org/content/early//A SN.4754334068 TH CHEST 1 VIEWon 08-21-2022 TH CHEST 1 VIEW Normal [facility] VANCOMYCINon 08-21-2022 VANCOMYCIN Canceled Normal [facility] Comment on above: Order Comment: TEST VANCOMYCIN [...] 83-98, 2008. Performed By: #### V ANCU ####[id number] [place] [address] APTTon 08-20-2022 aPTT Coag (Bld) [Time] 27 s Normal 27 - 38 [facility] Comment on above: Result Comment: Note new reference range as of 08/02/2022 at 10:00am. Performed By: #### A PTT ####[id number] [place] [address] ARTERIAL FULL PANELon 2022 Anion gap [Moles/Vol] 6 mmol/L Low 10 - 25 [facility] Comment on above: Performed By: #### A FPA4 ####[id number] [place] [address] BASE EXCESS-BLOOD 7.7 mmol/L High -2.0 - 3.0 [facility] Comment on above: Performed By: #### A FPA4 ####[id number] [place] [address] BICARB, CALCULATED 33.6 mmol/L High 22.0 - 26.0 [facility] Comment on above: Performed By: #### A FPA4 ####[id number] [place] [address] CALCIUM,IONIZED 1.17 mmol/L Normal 1.10 - 1.33 [facility] Comment on above: Performed By: #### A FPA4 ####[id number] [place] [address] Chloride [Moles/Vol] 102 mmol/L Normal 98 - 107 [facility] Comment on above: Performed By: #### A FPA4 ####[id number] [place] [address] Glucose [Mass/Vol] 145 mg/dL High 74 - 99 [facility] Comment on above: Performed By: #### A FPA4 ####[id number] [place] [address] Hematocrit (Bld) [Volume fraction] 32.0 % Low 41.0 - 52.0 [facility] Comment on above: Performed By: #### A FPA4 ####[id number] [place] [address] Hemoglobin (Bld) [Mass/Vol] 10.6 g/dL Low 13.5 - 17.5 [facility] Comment on above: Performed By: #### A FPA4 ####[id number] [place] [address] Lactate [Moles/Vol] 0.9 mmol/L Normal 0.4 - 2.0 [facility] Comment on above: Performed By: #### A FPA4 ####[id number] [place] [address] OXY HGB 94.8 % Normal 94.0 - 98.0 [facility] Comment on above: Performed By: #### A FPA4 ####[id number] [place] [address] Oxygen (Bld) [Partial pressure] 81 mm[Hg] Low 85 - 95 [facility] Comment on above: Performed By: #### A FPA4 ####[id number] [place] [address] PATIENT TEMPERATURE 37.0 degrees C Normal [facility] Comment on above: Result Comment: NOTE : PATIENT RESULTS ARE NOT CORRECTED FOR TEMPERATURE. Performed By: #### A FPA4 ####[id number] [place] [address] PCO2 53 mmHg High 38 - 42 [facility] Comment on above: Performed By: #### A FPA4 ####[id number] [place] [address] pH (Bld) 7.41 [pH] Normal 7.38 - 7.42 [facility] Comment on above: Performed By: #### A FPA4 ####[id number] [place] [address] Potassium [Moles/Vol] 4.6 mmol/L Normal 3.5 - 5.3 [facility] Comment on above: Performed By: #### A FPA4 ####[id number] [place] [address] SO2 98 % Normal 94 - 100 [facility] Comment on above: Performed By: #### A FPA4 ####[id number] [place] [address] Sodium [Moles/Vol] 137 mmol/L Normal 136 - 145 [facility] Comment on above: Performed By: #### A FPA4 ####[id number] [place] [address] Anion gap [Moles/Vol] 9 mmol/L Low 10 - 25 [facility] Comment on above: Performed By: #### A FPA4 ####[id number] [place] [address] BASE EXCESS-BLOOD 6.1 mmol/L High -2.0 - 3.0 [facility] Comment on above: Performed By: #### A FPA4 ####[id number] [place] [address] BICARB, CALCULATED 30.6 mmol/L High 22.0 - 26.0 [facility] Comment on above: Performed By: #### A FPA4 ####[id number] [place] [address] CALCIUM,IONIZED 1.16 mmol/L Normal 1.10 - 1.33 [facility] Comment on above: Performed By: #### A FPA4 ####[id number] [place] [address] Chloride [Moles/Vol] 101 mmol/L Normal 98 - 107 [facility] Comment on above: Performed By: #### A FPA4 ####[id number] [place] [address] Glucose [Mass/Vol] 171 mg/dL High 74 - 99 [facility] Comment on above: Performed By: #### A FPA4 ####[id number] [place] [address] Hematocrit (Bld) [Volume fraction] 32.0 % Low 41.0 - 52.0 [facility] Comment on above: Performed By: #### A FPA4 ####[id number] [place] [address] Hemoglobin (Bld) [Mass/Vol] 10.8 g/dL Low 13.5 - 17.5 [facility] Comment on above: Performed By: #### A FPA4 ####[id number] [place] [address] Lactate [Moles/Vol] 1.3 mmol/L Normal 0.4 - 2.0 [facility] Comment on above: Performed By: #### A FPA4 ####[id number] [place] [address] OXY HGB 95.8 % Normal 94.0 - 98.0 [facility] Comment on above: Performed By: #### A FPA4 ####[id number] [place] [address] Oxygen (Bld) [Partial pressure] 107 mm[Hg] High 85 - 95 [facility] Comment on above: Performed By: #### A FPA4 ####[id number] [place] [address] PATIENT TEMPERATURE 37.0 degrees C Normal [facility] Comment on above: Result Comment: NOTE : PATIENT RESULTS ARE NOT CORRECTED FOR TEMPERATURE. Performed By: #### A FPA4 ####[id number] [place] [address] PCO2 43 mmHg High 38 - 42 [facility] Comment on above: Performed By: #### A FPA4 ####[id number] [place] [address] pH (Bld) 7.46 [pH] High 7.38 - 7.42 [facility] Comment on above: Performed By: #### A FPA4 ####[id number] [place] [address] Potassium [Moles/Vol] 4.4 mmol/L Normal 3.5 - 5.3 [facility] Comment on above: Performed By: #### A FPA4 ####[id number] [place] [address] SO2 99 % Normal 94 - 100 [facility] Comment on above: Performed By: #### A FPA4 ####[id number] [place] [address] Sodium [Moles/Vol] 136 mmol/L Normal 136 - 145 [facility] Comment on above: Performed By: #### A FPA4 ####[id number] [place] [address] BASIC METABOLIC PANELon 07-0 8-2022 Anion gap [Moles/Vol] 13 mmol/L Normal 10 - 20 [facility] Comment on above: Performed By: #### B MP ####[id number] [place] [address] Calcium [Mass/Vol] 9.1 mg/dL Normal 8.6 - 10.6 [facility] Comment on above: Performed By: #### B MP ####[id number] [place] [address] Chloride [Moles/Vol] 97 mmol/L Low 98 - 107 [facility] Comment on above: Performed By: #### B MP ####[id number] [place] [address] Creatinine [Mass/Vol] 1.51 mg/dL High 0.50 - 1.30 [facility] Comment on above: Performed By: #### B MP ####[id number] [place] [address] GFR/1.73 sq M.predicted among non-blacks MDRD (S/P/Bld) [Vol rate/Area] 58 mL/min/{1.73_m2} Abnormal >90 [facility] Comment on above: Result Comment: CALC ULATIONS OF ESTIMATED GFR ARE PERFORMED USING THE 2020 CKD-EPI STUDY REFIT EQUATION WITHOUT THE RACE VARIABLE FOR THE IDMS-TRACEABLE CREATININE METHODS.https://jasn.asnjournals.org/content//A SN.5817867282 Performed By: #### B MP ####[id number] [place] [address] Glucose [Mass/Vol] 131 mg/dL High 74 - 99 [facility] Comment on above: Performed By: #### B MP ####[id number] [place] [address] HCO3 (Bld) [Moles/Vol] 33 mmol/L High 21 - 32 [facility] Comment on above: Performed By: #### B MP ####[id number] [place] [address] Potassium [Moles/Vol] 3.9 mmol/L Normal 3.5 - 5.3 [facility] Comment on above: Performed By: #### B MP ####[id number] [place] [address] Sodium [Moles/Vol] 139 mmol/L Normal 136 - 145 [facility] Comment on above: Performed By: #### B MP ####[id number] [place] [address] Urea nitrogen [Mass/Vol] 31 mg/dL High 6 - 23 [facility] Comment on above: Performed By: #### B MP ####[id number] [place] [address] CALCIUM, IONIZEDon 3 CALCIUM,IONIZED 1.11 mmol/L Normal 1.10 - 1.33 [facility] Comment on above: Result Comment: The performance characteristics of ionized calcium tested in heparinized plasma or serum have been validated by the individual laboratory site where testing is performed. Testing on heparinized plasma or serum is not approved by the FDA; however, such approval is not necessary. Performed By: #### I ONC1 ####[id number] [place] [address] CBC AND DIFFERENTIALon 08-20 % AUTOMATED IMMATURE GRAN 0.7 % Normal 0.0 - 0.9 [facility] Comment on above: Result Comment: Nicki ture Granulocyte Count (IG) includes promyelocytes, myelocytes and metamyelocytes but does not include bands. Percent differential counts (%) should be interpreted in the context of the absolute cell counts (cells/L). Performed By: #### C BCDF ####[id number] [place] [address] Basophils (Bld) [#/Vol] 0.06 10*3/uL Normal 0.00 - 0.10 [facility] Comment on above: Performed By: #### C BCDF ####[id number] [place] [address] Basophils/100 WBC (Bld) 0.4 % Normal 0.0 - 2.0 [facility] Comment on above: Performed By: #### C BCDF ####[id number] [place] [address] Eosinophils (Bld) [#/Vol] 0.21 10*3/uL Normal 0.00 - 0.70 [facility] Comment on above: Performed By: #### C BCDF ####[id number] [place] [address] Eosinophils/100 WBC (Bld) 1.3 % Normal 0.0 - 6.0 [facility] Comment on above: Performed By: #### C BCDF ####[id number] [place] [address] Erythrocyte distribution width (RBC) [Ratio] 14.1 % Normal 11.5 - 14.5 [facility] Comment on above: Performed By: #### C BCDF ####[id number] [place] [address] Hematocrit (Bld) [Volume fraction] 32.5 % Low 41.0 - 52.0 [facility] Comment on above: Performed By: #### C BCDF ####[id number] [place] [address] Hemoglobin (Bld) [Mass/Vol] 10.3 g/dL Low 13.5 - 17.5 [facility] Comment on above: Performed By: #### C BCDF ####[id number] [place] [address] Lymphocytes (Bld) [#/Vol] 0.90 10*3/uL Low 1.20 - 4.80 [facility] Comment on above: Performed By: #### C BCDF ####[id number] [place] [address] Lymphocytes/100 WBC (Bld) 5.7 % Normal 13.0 - 44.0 [facility] Comment on above: Performed By: #### C BCDF ####[id number] [place] [address] MCHC (RBC) [Mass/Vol] 31.7 g/dL Low 32.0 - 36.0 [facility] Comment on above: Performed By: #### C BCDF ####[id number] [place] [address] MCV (RBC) [Entitic vol] 101 fL High 80 - 100 [facility] Comment on above: Performed By: #### C BCDF ####[id number] [place] [address] Monocytes (Bld) [#/Vol] 0.82 10*3/uL Normal 0.10 - 1.00 [facility] Comment on above: Performed By: #### C BCDF ####[id number] [place] [address] Monocytes/100 WBC (Bld) 5.2 % Normal 2.0 - 10.0 [facility] Comment on above: Performed By: #### C BCDF ####[id number] [place] [address] Neutrophils (Bld) [#/Vol] 13.56 10*3/uL High 1.20 - 7.70 [facility] Comment on above: Performed By: #### C BCDF ####[id number] [place] [address] Neutrophils/100 WBC (Bld) 86.7 % Normal 40.0 - 80.0 [facility] Comment on above: Performed By: #### C BCDF ####[id number] [place] [address] NUCLEATED RBC 0.0 /100 WBC Normal 0.0-0.0 [facility] Comment on above: Performed By: #### C BCDF ####[id number] [place] [address] Platelets (Bld) [#/Vol] 176 10*3/uL Normal 150 - 450 [facility] Comment on above: Performed By: #### C BCDF ####[id number] [place] [address] RBC 3.23 x10E12/L Low 4.50 - 5.90 [facility] Comment on above: Performed By: #### C BCDF ####[id number] [place] [address] WBC (Bld) [#/Vol] 15.7 10*3/uL High 4.4 - 11.3 [facility] Comment on above: Performed By: #### C BCDF ####[id number] [place] [address] % AUTOMATED IMMATURE GRAN 0.7 % Normal 0.0 - 0.9 [facility] Comment on above: Result Comment: Nicki ture Granulocyte Count (IG) includes promyelocytes, myelocytes and metamyelocytes but does not include bands. Percent differential counts (%) should be interpreted in the context of the absolute cell counts (cells/L). Performed By: #### C BCDF ####[id number] [place] [address] Basophils (Bld) [#/Vol] 0.09 10*3/uL Normal 0.00 - 0.10 [facility] Comment on above: Performed By: #### C BCDF ####[id number] [place] [address] Basophils/100 WBC (Bld) 0.5 % Normal 0.0 - 2.0 [facility] Comment on above: Performed By: #### C BCDF ####[id number] [place] [address] Eosinophils (Bld) [#/Vol] 0.13 10*3/uL Normal 0.00 - 0.70 [facility] Comment on above: Performed By: #### C BCDF ####[id number] [place] [address] Eosinophils/100 WBC (Bld) 0.7 % Normal 0.0 - 6.0 [facility] Comment on above: Performed By: #### C BCDF ####[id number] [place] [address] Erythrocyte distribution width (RBC) [Ratio] 13.9 % Normal 11.5 - 14.5 [facility] Comment on above: Performed By: #### C BCDF ####[id number] [place] [address] Hematocrit (Bld) [Volume fraction] 31.2 % Low 41.0 - 52.0 [facility] Comment on above: Performed By: #### C BCDF ####[id number] [place] [address] Hemoglobin (Bld) [Mass/Vol] 10.4 g/dL Low 13.5 - 17.5 [facility] Comment on above: Performed By: #### C BCDF ####[id number] [place] [address] Lymphocytes (Bld) [#/Vol] 0.91 10*3/uL Low 1.20 - 4.80 [facility] Comment on above: Performed By: #### C BCDF ####[id number] [place] [address] Lymphocytes/100 WBC (Bld) 4.8 % Normal 13.0 - 44.0 [facility] Comment on above: Performed By: #### C BCDF ####[id number] [place] [address] MCHC (RBC) [Mass/Vol] 33.3 g/dL Normal 32.0 - 36.0 [facility] Comment on above: Performed By: #### C BCDF ####[id number] [place] [address] MCV (RBC) [Entitic vol] 95 fL Normal 80 - 100 [facility] Comment on above: Performed By: #### C BCDF ####[id number] [place] [address] Monocytes (Bld) [#/Vol] 1.14 10*3/uL High 0.10 - 1.00 [facility] Comment on above: Performed By: #### C BCDF ####[id number] [place] [address] Monocytes/100 WBC (Bld) 6.0 % Normal 2.0 - 10.0 [facility] Comment on above: Performed By: #### C BCDF ####[id number] [place] [address] Neutrophils (Bld) [#/Vol] 16.68 10*3/uL High 1.20 - 7.70 [facility] Comment on above: Performed By: #### C BCDF ####[id number] [place] [address] Neutrophils/100 WBC (Bld) 87.3 % Normal 40.0 - 80.0 [facility] Comment on above: Performed By: #### C BCDF ####[id number] [place] [address] NUCLEATED RBC 0.0 /100 WBC Normal 0.0-0.0 [facility] Comment on above: Performed By: #### C BCDF ####[id number] [place] [address] Platelets (Bld) [#/Vol] 185 10*3/uL Normal 150 - 450 [facility] Comment on above: Performed By: #### C BCDF ####[id number] [place] [address] RBC 3.29 x10E12/L Low 4.50 - 5.90 [facility] Comment on above: Performed By: #### C BCDF ####[id number] [place] [address] WBC (Bld) [#/Vol] 19.1 10*3/uL High 4.4 - 11.3 [facility] Comment on above: Performed By: #### C BCDF ####[id number] [place] [address] COAGULATION SCREENon 023 aPTT Coag (Bld) [Time] 28 s Normal 27 - 38 [facility] Comment on above: Result Comment: Note new reference range as of 08/02/2022 at 10:00am. Performed By: #### C OAGS ####[id number] [place] [address] PT Coag (PPP) [Time] 15.7 s High 9.8 - 12.8 [facility] Comment on above: Result Comment: Note new reference range as of 08/02/2022 at 10:00am. Performed By: #### C OAGS ####[id number] [place] [address] PT, INR 1.4 High 0.9 - 1.1 [facility] Comment on above: Performed By: #### C OAGS ####[id number] [place] [address] Daily Progress Note - Critic al Careon 08-20-2022 Daily Progress Note - Critical Care Normal [facility] Daily Progress Note - Critic al Care-CTICUon 08-20-2022 Daily Progress Note - Critical Care-CTICU Normal [facility] GLUCOSE-POCTon 08-20-2022 Glucose [Mass/Vol] 121 mg/dL High 74 - 99 [facility] Comment on above: Performed By: #### G EDI ####[id number] [place] [address] Glucose [Mass/Vol] 115 mg/dL High 74 - 99 [facility] Comment on above: Performed By: #### G EDI ####[id number] [place] [address] Glucose [Mass/Vol] 123 mg/dL High 74 - 99 [facility] Comment on above: Performed By: #### G EDI ####[id number] [place] [address] Glucose [Mass/Vol] 125 mg/dL High 74 - 99 [facility] Comment on above: Performed By: #### G EDI ####[id number] [place] [address] Glucose [Mass/Vol] 120 mg/dL High 74 - 99 [facility] Comment on above: Performed By: #### G EDI ####[id number] [place] [address] HEPARIN ASSAY,UFHon 08-21-19 HEPARIN ASSAY,UFH <0.1 Normal [facility] Comment on above: Result Comment: The therapeutic reference range for UFH may be either 0.3-0.6 IU/mL or 0.3-0.7 IU/mL based on the clinical setting for anticoagulant therapy and the associated nomogram used. For heparin dosing guidelines based on clinical scenario and Heparin Assay results, please refer to local Pharmacy and the [facility] Guidelines for Anticoagulation therapy available on the [facility] intranet at:[email or web address]_Guidelines_for_[email or web address].aspx Performed By: #### H AUF ####[id number] [place] [address] HEPARIN ASSAY,UFH <0.1 Normal [facility] Comment on above: Result Comment: The therapeutic reference range for UFH may be either 0.3-0.6 IU/mL or 0.3-0.7 IU/mL based on the clinical setting for anticoagulant therapy and the associated nomogram used. For heparin dosing guidelines based on clinical scenario and Heparin Assay results, please refer to local Pharmacy and the [facility] Guidelines for Anticoagulation therapy available on the [facility] intranet at:[email or web address]_Guidelines_for_Anticoagu.aspx Performed By: #### H AUF ####[id number] [place] [address] Heparin assay, UFHon 023 Heparin unfractionated Chromogenic method Qn (PPP) Canceled [facility] Work Phone: Comment on above: The therapeutic refe rence range for UFH may be either 0.3-0.6 IU/mL or 0.3-0.7 IU/mL based on the clinical setting for anticoagulant therapy and the associated nomogram used. For heparin dosing guidelines based on clinical scenario and Heparin Assay results, please refer to local Pharmacy and [facility] Guidelines for Anticoagulation therapy available on the [facility] intranet at:[email or web address]_Guidelines_for_Anticoagu.aspx MAGNESIUMon 08-20-2022 Magnesium [Mass/Vol] 2.22 mg/dL Normal 1.60 - 2.40 [facility] Comment on above: Performed By: #### M G ####[id number] [place] [address] Magnesium [Mass/Vol] 2.24 mg/dL Normal 1.60 - 2.40 [facility] Comment on above: Performed By: #### M G ####[id number] [place] [address] MV FULL PANELon 08-20-2022 Anion gap [Moles/Vol] 4 mmol/L Low 10 - 25 [facility] Comment on above: Performed By: #### M VPA4 ####[id number] [place] [address] BASE EXCESS-BLOOD 9.7 mmol/L Normal [facility] Comment on above: Performed By: #### M VPA4 ####[id number] [place] [address] BICARB, CALCULATED 36.7 mmol/L Normal [facility] Comment on above: Performed By: #### M VPA4 ####[id number] [place] [address] CALCIUM,IONIZED 1.20 mmol/L Normal 1.10 - 1.33 [facility] Comment on above: Performed By: #### M VPA4 ####[id number] [place] [address] Chloride [Moles/Vol] 100 mmol/L Normal 98 - 107 [facility] Comment on above: Performed By: #### M VPA4 ####[id number] [place] [address] Glucose [Mass/Vol] 132 mg/dL High 74 - 99 [facility] Comment on above: Performed By: #### M VPA4 ####[id number] [place] [address] Hematocrit (Bld) [Volume fraction] 32.0 % Low 41.0 - 52.0 [facility] Comment on above: Performed By: #### M VPA4 ####[id number] [place] [address] Hemoglobin (Bld) [Mass/Vol] 10.8 g/dL Low 13.5 - 17.5 [facility] Comment on above: Performed By: #### M VPA4 ####[id number] [place] [address] Lactate [Moles/Vol] 1.0 mmol/L Normal 0.4 - 2.0 [facility] Comment on above: Performed By: #### M VPA4 ####[id number] [place] [address] OXY HGB 61.0 % Normal 45.0 - 75.0 [facility] Comment on above: Performed By: #### M VPA4 ####[id number] [place] [address] Oxygen (Bld) [Partial pressure] 43 mm[Hg] Normal [facility] Comment on above: Performed By: #### M VPA4 ####[id number] [place] [address] PATIENT TEMPERATURE 37.0 degrees Normal [facility] Comment on above: Result Comment: NOTE : PATIENT RESULTS ARE NOT CORRECTED FOR TEMPERATURE. Performed By: #### M VPA4 ####[id number] [place] [address] PCO2 62 mmHg Normal [facility] Comment on above: Performed By: #### M VPA4 ####[id number] [place] [address] pH (Bld) 7.38 [pH] Normal [facility] Comment on above: Performed By: #### M VPA4 ####[id number] [place] [address] Potassium [Moles/Vol] 4.4 mmol/L Normal 3.5 - 5.3 [facility] Comment on above: Performed By: #### M VPA4 ####[id number] [place] [address] SO2 62 % Normal [facility] Comment on above: Performed By: #### M VPA4 ####[id number] [place] [address] Sodium [Moles/Vol] 136 mmol/L Normal 136 - 145 [facility] Comment on above: Performed By: #### M VPA4 ####[id number] [place] [address] RENAL FUNCTION PANELon 08-20 Albumin [Mass/Vol] 3.4 g/dL Normal 3.4 - 5.0 [facility] Comment on above: Performed By: #### R ENAL ####[id number] [place] [address] Anion gap [Moles/Vol] 14 mmol/L Normal 10 - 20 [facility] Comment on above: Performed By: #### R ENAL ####[id number] [place] [address] Calcium [Mass/Vol] 8.7 mg/dL Normal 8.6 - 10.6 [facility] Comment on above: Performed By: #### R ENAL ####[id number] [place] [address] Chloride [Moles/Vol] 99 mmol/L Normal 98 - 107 [facility] Comment on above: Performed By: #### R ENAL ####[id number] [place] [address] Creatinine [Mass/Vol] 1.68 mg/dL High 0.50 - 1.30 [facility] Comment on above: Performed By: #### R ENAL ####[id number] [place] [address] GFR/1.73 sq M.predicted among non-blacks MDRD (S/P/Bld) [Vol rate/Area] 51 mL/min/{1.73_m2} Abnormal >90 [facility] Comment on above: Result Comment: CALC ULATIONS OF ESTIMATED GFR ARE PERFORMED USING THE 2020 CKD-EPI STUDY REFIT EQUATION WITHOUT THE RACE VARIABLE FOR THE IDMS-TRACEABLE CREATININE METHODS.https://jasn.asnjournals.org/content/early/A SN.9974630602 Performed By: #### R ENAL ####[id number] [place] [address] Glucose [Mass/Vol] 124 mg/dL High 74 - 99 [facility] Comment on above: Performed By: #### R ENAL ####[id number] [place] [address] HCO3 (Bld) [Moles/Vol] 31 mmol/L Normal 21 - 32 [facility] Comment on above: Performed By: #### R ENAL ####[id number] [place] [address] Phosphate [Mass/Vol] 6.4 mg/dL High 2.5 - 4.9 [facility] Comment on above: Result Comment: The performance characteristics of phosphorus testing in heparinized plasma have been validated by the individual laboratory site where testing is performed. Testing on heparinized plasma is not approved by the FDA; however, such approval is not necessary. Performed By: #### R ENAL ####[id number] [place] [address] Potassium [Moles/Vol] 4.3 mmol/L Normal 3.5 - 5.3 [facility] Comment on above: Performed By: #### R ENAL ####[id number] [place] [address] Sodium [Moles/Vol] 140 mmol/L Normal 136 - 145 [facility] Comment on above: Performed By: #### R ENAL ####[id number] [place] [address] Urea nitrogen [Mass/Vol] 30 mg/dL High 6 - 23 [facility] Comment on above: Performed By: #### R ENAL ####[id number] [place] [address] Albumin [Mass/Vol] 3.6 g/dL Normal 3.4 - 5.0 [facility] Comment on above: Performed By: #### R ENAL ####[id number] [place] [address] Anion gap [Moles/Vol] 15 mmol/L Normal 10 - 20 [facility] Comment on above: Performed By: #### R ENAL ####[id number] [place] [address] Calcium [Mass/Vol] 8.8 mg/dL Normal 8.6 - 10.6 [facility] Comment on above: Performed By: #### R ENAL ####[id number] [place] [address] Chloride [Moles/Vol] 98 mmol/L Normal 98 - 107 [facility] Comment on above: Performed By: #### R ENAL ####[id number] [place] [address] Creatinine [Mass/Vol] 1.94 mg/dL High 0.50 - 1.30 [facility] Comment on above: Performed By: #### R ENAL ####[id number] [place] [address] GFR/1.73 sq M.predicted among non-blacks MDRD (S/P/Bld) [Vol rate/Area] 43 mL/min/{1.73_m2} Abnormal >90 [facility] Comment on above: Result Comment: CALC ULATIONS OF ESTIMATED GFR ARE PERFORMED USING THE 2020 CKD-EPI STUDY REFIT EQUATION WITHOUT THE RACE VARIABLE FOR THE IDMS-TRACEABLE CREATININE METHODS.https://jasn.asnjournals.org/content/early//A SN.2044967309 Performed By: #### R ENAL ####[id number] [place] [address] Glucose [Mass/Vol] 171 mg/dL High 74 - 99 [facility] Comment on above: Performed By: #### R ENAL ####[id number] [place] [address] HCO3 (Bld) [Moles/Vol] 29 mmol/L Normal 21 - 32 [facility] Comment on above: Performed By: #### R ENAL ####[id number] [place] [address] Phosphate [Mass/Vol] 5.9 mg/dL High 2.5 - 4.9 [facility] Comment on above: Result Comment: The performance characteristics of phosphorus testing in heparinized plasma have been validated by the individual laboratory site where testing is performed. Testing on heparinized plasma is not approved by the FDA; however, such approval is not necessary. Performed By: #### R ENAL ####[id number] [place] [address] Potassium [Moles/Vol] 4.3 mmol/L Normal 3.5 - 5.3 [facility] Comment on above: Performed By: #### R ENAL ####[id number] [place] [address] Sodium [Moles/Vol] 138 mmol/L Normal 136 - 145 [facility] Comment on above: Performed By: #### R ENAL ####[id number] [place] [address] Urea nitrogen [Mass/Vol] 27 mg/dL High 6 - 23 [facility] Comment on above: Performed By: #### R ENAL ####[id number] [place] [address] TH CHEST 1 VIEWon 08-20-2022 TH CHEST 1 VIEW Normal [facility] TYPE + SCREENon 08-20-2022 ABO TYPE O Normal [facility] Comment on above: Performed By: #### T +S ####[id number] [place] [address] RH TYPE Positive Normal [facility] Comment on above: Performed By: #### T +S ####[id number] [place] [address] VANCOMYCINon 08-20-2022 VANCOMYCIN 18.0 ug/mL Normal [facility] Comment on above: Result Comment: .The rapeutic Ranges: Peak: All ages: 30.0-40.0 ug/mL. Trough: Age <18y: 5.0-10.0 ug/mL. Age >/= 18y: 5.0-20.0 ug/mL. Vancomycin trough concentrations drawn immediately prior to the next dose at steady-state are preferred for monitoring patients treated with vancomycin. Ref.: Am J Health-Syst Pharm 66: 83-98, 2008. Performed By: #### V ANCU ####[id number] [place] [address] Vancomycin Level, Randomon 0 08-20-2022 Vancomycin [Mass/Vol] Canceled [facility] Cardiology [facility] Work Phone: Comment on above: .Therapeutic Ranges: Peak: All ages: 30.0-40.0 ug/mL. Trough: Age <18y: 5.0-10.0 ug/mL. Age >/= 18y: 5.0-20.0 ug/mL. Vancomycin trough concentrations drawn immediately prior to the next dose at steady-state are preferred for monitoring patients treated with vancomycin. Ref.: Am J Health-Syst Pharm 66: 83-98, 2008. ARTERIAL FULL PANELon 2022 Anion gap [Moles/Vol] 7 mmol/L Low 10 - 25 [facility] Comment on above: Performed By: #### A FPA4 ####[id number] [place] [address] BASE EXCESS-BLOOD -2.2 mmol/L Low -2.0 - 3.0 [facility] Comment on above: Performed By: #### A FPA4 ####[id number] [place] [address] BICARB, CALCULATED 22.3 mmol/L Normal 22.0 - 26.0 [facility] Comment on above: Performed By: #### A FPA4 ####[id number] [place] [address] CALCIUM,IONIZED 0.98 mmol/L Low 1.10 - 1.33 [facility] Comment on above: Performed By: #### A FPA4 ####[id number] [place] [address] Chloride [Moles/Vol] 113 mmol/L High 98 - 107 [facility] Comment on above: Performed By: #### A FPA4 ####[id number] [place] [address] CPAP 5.0 cm H2O Normal [facility] Comment on above: Performed By: #### A FPA4 ####[id number] [place] [address] FIO2 40 % Normal [facility] Comment on above: Performed By: #### A FPA4 ####[id number] [place] [address] Glucose [Mass/Vol] 113 mg/dL High 74 - 99 [facility] Comment on above: Performed By: #### A FPA4 ####[id number] [place] [address] Hematocrit (Bld) [Volume fraction] 25.0 % Low 41.0 - 52.0 [facility] Comment on above: Performed By: #### A FPA4 ####[id number] [place] [address] Hemoglobin (Bld) [Mass/Vol] 8.4 g/dL Low 13.5 - 17.5 [facility] Comment on above: Performed By: #### A FPA4 ####[id number] [place] [address] Lactate [Moles/Vol] 0.8 mmol/L Normal 0.4 - 2.0 [facility] Comment on above: Performed By: #### A FPA4 ####[id number] [place] [address] OXY HGB 95.9 % Normal 94.0 - 98.0 [facility] Comment on above: Performed By: #### A FPA4 ####[id number] [place] [address] Oxygen (Bld) [Partial pressure] 88 mm[Hg] Normal 85 - 95 [facility] Comment on above: Performed By: #### A FPA4 ####[id number] [place] [address] PATIENT TEMPERATURE 37.0 degrees C Normal [facility] Comment on above: Result Comment: NOTE : PATIENT RESULTS ARE NOT CORRECTED FOR TEMPERATURE. Performed By: #### A FPA4 ####[id number] [place] [address] PCO2 36 mmHg Low 38 - 42 [facility] Comment on above: Performed By: #### A FPA4 ####[id number] [place] [address] pH (Bld) 7.40 [pH] Normal 7.38 - 7.42 [facility] Comment on above: Performed By: #### A FPA4 ####[id number] [place] [address] Potassium [Moles/Vol] 4.2 mmol/L Normal 3.5 - 5.3 [facility] Comment on above: Performed By: #### A FPA4 ####[id number] [place] [address] PRESSURE SUPPORT 5 cm H2O Normal [facility] Comment on above: Performed By: #### A FPA4 ####[id number] [place] [address] SITE OF ARTERIAL PUNCTURE EPO 0.02 Normal [facility] Comment on above: Performed By: #### A FPA4 ####[id number] [place] [address] SO2 99 % Normal 94 - 100 [facility] Comment on above: Performed By: #### A FPA4 ####[id number] [place] [address] Sodium [Moles/Vol] 138 mmol/L Normal 136 - 145 [facility] Comment on above: Performed By: #### A FPA4 ####[id number] [place] [address] Anion gap [Moles/Vol] 7 mmol/L Low 10 - 25 [facility] Comment on above: Performed By: #### A FPA4 ####[id number] [place] [address] BASE EXCESS-BLOOD 4.1 mmol/L High -2.0 - 3.0 [facility] Comment on above: Performed By: #### A FPA4 ####[id number] [place] [address] BICARB, CALCULATED 26.9 mmol/L High 22.0 - 26.0 [facility] Comment on above: Performed By: #### A FPA4 ####[id number] [place] [address] CALCIUM,IONIZED 1.12 mmol/L Normal 1.10 - 1.33 [facility] Comment on above: Performed By: #### A FPA4 ####[id number] [place] [address] Chloride [Moles/Vol] 106 mmol/L Normal 98 - 107 [facility] Comment on above: Performed By: #### A FPA4 ####[id number] [place] [address] Glucose [Mass/Vol] 96 mg/dL Normal 74 - 99 [facility] Comment on above: Performed By: #### A FPA4 ####[id number] [id number] Hematocrit (Bld) [Volume fraction] 32.0 % Low 41.0 - 52.0 [facility] Comment on above: Performed By: #### A FPA4 ####[id number] [place] [address] Hemoglobin (Bld) [Mass/Vol] 10.8 g/dL Low 13.5 - 17.5 [facility] Comment on above: Performed By: #### A FPA4 ####[id number] [place] [address] Lactate [Moles/Vol] 1.7 mmol/L Normal 0.4 - 2.0 [facility] Comment on above: Performed By: #### A FPA4 ####[id number] [address] OXY HGB 96.4 % Normal 94.0 - 98.0 [facility] Comment on above: Performed By: #### A FPA4 ####[id number], [place] Oxygen (Bld) [Partial pressure] 101 mm[Hg] High 85 - 95 [facility] Comment on above: Performed By: #### A FPA4 ####[id number] [place] [address] PATIENT TEMPERATURE 37.0 degrees C Normal [facility] Comment on above: Result Comment: NOTE : PATIENT RESULTS ARE NOT CORRECTED FOR TEMPERATURE. Performed By: #### A FPA4 ####[id number] [address] PCO2 33 mmHg Low 38 - 42 [facility] Comment on above: Performed By: #### A FPA4 ####[id number] [place] [address] pH (Bld) 7.52 [pH] High 7.38 - 7.42 [facility] Comment on above: Performed By: #### A FPA4 ####[id number] [place] [address] Potassium [Moles/Vol] 4.3 mmol/L Normal 3.5 - 5.3 [facility] Comment on above: Performed By: #### A FPA4 ####[id number] [place] [address] SO2 99 % Normal 94 - 100 [facility] Comment on above: Performed By: #### A FPA4 ####[id number] [place] [address] Sodium [Moles/Vol] 136 mmol/L Normal 136 - 145 [facility] Comment on above: Performed By: #### A FPA4 ####[id number] [place] [address] Anion gap [Moles/Vol] 10 mmol/L Normal 10 - 25 [facility] Comment on above: Performed By: #### A FPA4 ####[id number] [place] [address] BASE EXCESS-BLOOD 3.2 mmol/L High -2.0 - 3.0 [facility] Comment on above: Performed By: #### A FPA4 ####[id number] [place] [address] BICARB, CALCULATED 26.9 mmol/L High 22.0 - 26.0 [facility] Comment on above: Performed By: #### A FPA4 ####[id number] [place] [address] CALCIUM,IONIZED 1.14 mmol/L Normal 1.10 - 1.33 [facility] Comment on above: Performed By: #### A FPA4 ####[id number] [place] [address] Chloride [Moles/Vol] 104 mmol/L Normal 98 - 107 [facility] Comment on above: Performed By: #### A FPA4 ####[id number] [place] [address] Glucose [Mass/Vol] 245 mg/dL High 74 - 99 [facility] Comment on above: Performed By: #### A FPA4 ####[id number] [place] [address] Hematocrit (Bld) [Volume fraction] 33.0 % Low 41.0 - 52.0 [facility] Comment on above: Performed By: #### A FPA4 ####[id number] [place] [address] Hemoglobin (Bld) [Mass/Vol] 10.9 g/dL Low 13.5 - 17.5 [facility] Comment on above: Performed By: #### A FPA4 ####[id number] [place] [address] Lactate [Moles/Vol] 3.3 mmol/L High 0.4 - 2.0 [facility] Comment on above: Performed By: #### A FPA4 ####[id number] [place] [address] OXY HGB 96.4 % Normal 94.0 - 98.0 [facility] Comment on above: Performed By: #### A FPA4 ####[id number] [place] [address] Oxygen (Bld) [Partial pressure] 124 mm[Hg] High 85 - 95 [facility] Comment on above: Performed By: #### A FPA4 ####[id number] [place] [address] PATIENT TEMPERATURE 37.0 degrees C Normal [facility] Comment on above: Result Comment: NOTE : PATIENT RESULTS ARE NOT CORRECTED FOR TEMPERATURE. Performed By: #### A FPA4 ####[id number] [place] [address] PCO2 37 mmHg Low 38 - 42 [facility] Comment on above: Performed By: #### A FPA4 ####[id number] [place] [address] pH (Bld) 7.47 [pH] High 7.38 - 7.42 [facility] Comment on above: Performed By: #### A FPA4 ####[id number] [place] [address] Potassium [Moles/Vol] 4.4 mmol/L Normal 3.5 - 5.3 [facility] Comment on above: Performed By: #### A FPA4 ####[id number] [place] [address] SO2 99 % Normal 94 - 100 [facility] Comment on above: Performed By: #### A FPA4 ####[id number] [place] [address] Sodium [Moles/Vol] 136 mmol/L Normal 136 - 145 [facility] Comment on above: Performed By: #### A FPA4 ####[id number] [place] [address] Anion gap [Moles/Vol] 14 mmol/L Normal 10 - 25 [facility] Comment on above: Order Comment: Barbosa d- RB to PAM BOUCHAHINE, 08/19/2022 04:21 Performed By: #### A FPA4 ####[id number] [place] [address] BASE EXCESS-BLOOD 0.1 mmol/L Normal -2.0 - 3.0 [facility] Comment on above: Order Comment: Barbosa d- RB to PAM BOUCHAHINE, 08/19/2022 04:21 Performed By: #### A FPA4 ####[id number] [place] [address] BICARB, CALCULATED 23.5 mmol/L Normal 22.0 - 26.0 [facility] Comment on above: Order Comment: Barbosa d- RB to PAM BOUCHAHINE, 08/19/2022 04:21 Performed By: #### A FPA4 ####[id number] [place] [address] CALCIUM,IONIZED 1.16 mmol/L Normal 1.10 - 1.33 [facility] Comment on above: Order Comment: Barbosa d- RB to PAM BOUCHAHINE, 08/19/2022 04:21 Performed By: #### A FPA4 ####[id number] [place] [address] Chloride [Moles/Vol] 103 mmol/L Normal 98 - 107 [facility] Comment on above: Order Comment: Barbosa d- RB to PAM BOUCHAHINE, 08/19/2022 04:21 Performed By: #### A FPA4 ####[id number] [place] [address] Glucose [Mass/Vol] 304 mg/dL High 74 - 99 [facility] Comment on above: Order Comment: Barbosa d- RB to PAM BOBIENVENIDOAHINE, 08/19/2022 04:21 Performed By: #### A FPA4 ####[id number] [place] [address] Hematocrit (Bld) [Volume fraction] 32.0 % Low 41.0 - 52.0 [facility] Comment on above: Order Comment: Barbosa d- RB to PAM BOUCHAHINE, 08/19/2022 04:21 Performed By: #### A FPA4 ####[id number] [place] [address] Hemoglobin (Bld) [Mass/Vol] 10.8 g/dL Low 13.5 - 17.5 [facility] Comment on above: Order Comment: Barbosa d- RB to PAM BOUCHAHINE, 08/19/2022 04:21 Performed By: #### A FPA4 ####[id number] [place] [address] Lactate [Moles/Vol] 5.4 mmol/L Critically high 0.4 - 2.0 [facility] Comment on above: Order Comment: Barbosa d- RB to PAM BOUCHAHINE, 08/19/2022 04:21 Result Comment: Call ed- RB to PAM BOUCHAHINE, 08/19/2022 04:21 Performed By: #### A FPA4 ####[id number] [place] [address] OXY HGB 96.2 % Normal 94.0 - 98.0 [facility] Comment on above: Order Comment: Barbosa d- RB to PAM BOUCHAHINE, 08/19/2022 04:21 Performed By: #### A FPA4 ####[id number] [place] [address] Oxygen (Bld) [Partial pressure] 143 mm[Hg] High 85 - 95 [facility] Comment on above: Order Comment: Barbosa d- RB to PAM BOUCHAHINE, 08/19/2022 04:21 Performed By: #### A FPA4 ####[id number] [place] [address] PATIENT TEMPERATURE 37.0 degrees C Normal [facility] Comment on above: Order Comment: Barbosa d- RB to PAM BOUCHAHINE, 08/19/2022 04:21 Result Comment: NOTE : PATIENT RESULTS ARE NOT CORRECTED FOR TEMPERATURE. Performed By: #### A FPA4 ####[id number] [place] [address] PCO2 33 mmHg Low 38 - 42 [facility] Comment on above: Order Comment: Barbosa d- RB to PAM BOUCHAHINE, 08/19/2022 04:21 Performed By: #### A FPA4 ####[id number] [place] [address] pH (Bld) 7.46 [pH] High 7.38 - 7.42 [facility] Comment on above: Order Comment: Barbosa d- RB to PAM BOUCHAHINE, 08/19/2022 04:21 Performed By: #### A FPA4 ####[id number] [place] [address] Potassium [Moles/Vol] 4.7 mmol/L Normal 3.5 - 5.3 [facility] Comment on above: Order Comment: Barbosa d- RB to PAM BOUCHAHINE, 08/19/2022 04:21 Performed By: #### A FPA4 ####[id number] [place] [address] SO2 99 % Normal 94 - 100 [facility] Comment on above: Order Comment: Barbosa d- RB to PAM BOUCHAHINE, 08/19/2022 04:21 Performed By: #### A FPA4 ####[id number] [place] [address] Sodium [Moles/Vol] 136 mmol/L Normal 136 - 145 [facility] Comment on above: Order Comment: Barbosa d- RB to PAM BOUCHAHINE, 08/19/2022 04:21 Performed By: #### A FPA4 ####[id number] [place] [address] Anion gap [Moles/Vol] 19 mmol/L Normal 10 - 25 [facility] Comment on above: Order Comment: Barbosa d- RB to DR ISLAS, 08/19/2022 02:05 Performed By: #### A FPA4 ####[id number] [place] [address] BASE EXCESS-BLOOD -5.0 mmol/L Low -2.0 - 3.0 [facility] Comment on above: Order Comment: Barbosa d- RB to DR ISLAS, 08/19/2022 02:05 Performed By: #### A FPA4 ####[id number] [place] [address] BICARB, CALCULATED 19.8 mmol/L Low 22.0 - 26.0 [facility] Comment on above: Order Comment: Barbosa d- RB to DR ISLAS, 08/19/2022 02:05 Performed By: #### A FPA4 ####[id number] [place] [address] CALCIUM,IONIZED 1.16 mmol/L Normal 1.10 - 1.33 [facility] Comment on above: Order Comment: Barbosa d- RB to DR ISLAS, 08/19/2022 02:05 Performed By: #### A FPA4 ####[id number] [place] [address] Chloride [Moles/Vol] 102 mmol/L Normal 98 - 107 [facility] Comment on above: Order Comment: Barbosa d- RB to DR ISLAS, 08/19/2022 02:05 Performed By: #### A FPA4 ####[id number] [place] [address] Glucose [Mass/Vol] 332 mg/dL High 74 - 99 [facility] Comment on above: Order Comment: Barbosa d- RB to DR ISLAS, 08/19/2022 02:05 Performed By: #### A FPA4 ####[id number] [place] [address] Hematocrit (Bld) [Volume fraction] 32.0 % Low 41.0 - 52.0 [facility] Comment on above: Order Comment: Barbosa d- RB to DR ISLAS, 08/19/2022 02:05 Performed By: #### A FPA4 ####[id number] [place] [address] Hemoglobin (Bld) [Mass/Vol] 10.7 g/dL Low 13.5 - 17.5 [facility] Comment on above: Order Comment: Barbosa d- RB to DR ISLAS, 08/19/2022 02:05 Performed By: #### A FPA4 ####[id number] [id number] Lactate [Moles/Vol] 8.6 mmol/L Critically high 0.4 - 2.0 [facility] Comment on above: Order Comment: Barbosa d- RB to DR ISLAS, 08/19/2022 02:05 Result Comment: Call ed- RB to DR ISLAS, 08/19/2022 02:05 Performed By: #### A FPA4 ####[id number] [id number] OXY HGB 96.2 % Normal 94.0 - 98.0 [facility] Comment on above: Order Comment: Barbosa d- RB to DR ISLAS, 08/19/2022 02:05 Performed By: #### A FPA4 ####[id number] [place] [address] Oxygen (Bld) [Partial pressure] 140 mm[Hg] High 85 - 95 [facility] Comment on above: Order Comment: Barbosa d- RB to DR ISLAS, 08/19/2022 02:05 Performed By: #### A FPA4 ####[id number] [place] [address] PATIENT TEMPERATURE 37.0 degrees C Normal [facility] Comment on above: Order Comment: Barbosa d- RB to DR ISLAS, 08/19/2022 02:05 Result Comment: NOTE : PATIENT RESULTS ARE NOT CORRECTED FOR TEMPERATURE. Performed By: #### A FPA4 ####[id number] [place] [address] PCO2 35 mmHg Low 38 - 42 [facility] Comment on above: Order Comment: Barbosa d- RB to DR ISLAS, 08/19/2022 02:05 Performed By: #### A FPA4 ####[id number] [place] [address] pH (Bld) 7.36 [pH] Low 7.38 - 7.42 [facility] Comment on above: Order Comment: Barbosa d- RB to DR ISLAS, 08/19/2022 02:05 Performed By: #### A FPA4 ####[id number] [place] [address] Potassium [Moles/Vol] 4.7 mmol/L Normal 3.5 - 5.3 [facility] Comment on above: Order Comment: Barbosa d- RB to DR ISLAS, 08/19/2022 02:05 Performed By: #### A FPA4 ####[id number] [place] [address] SO2 99 % Normal 94 - 100 [facility] Comment on above: Order Comment: Barbosa d- RB to DR ISLAS, 08/19/2022 02:05 Performed By: #### A FPA4 ####[id number] [place] [address] Sodium [Moles/Vol] 136 mmol/L Normal 136 - 145 [facility] Comment on above: Order Comment: Barbosa d- RB to DR ISLAS, 08/19/2022 02:05 Performed By: #### A FPA4 ####[id number] [place] [address] Anion gap [Moles/Vol] 21 mmol/L Normal 10 - 25 [facility] Comment on above: Order Comment: Barbosa d- RB to TERE ISLAS, 08/19/2022 00:40 Called- RB to SAMEAM SHAHZOËTANI, 08/19/2022 00:40 Performed By: #### A FPA4 ####[id number] [place] [address] BASE EXCESS-BLOOD -8.3 mmol/L Low -2.0 - 3.0 [facility] Comment on above: Order Comment: Barbosa d- RB to SAMEJACKELINE CONTRERASTANI, 08/19/2022 00:40 Called- RB to SAMEAM SHAHRESTANI, 08/19/2022 00:40 Performed By: #### A FPA4 ####[id number] [place] [address] BICARB, CALCULATED 17.1 mmol/L Low 22.0 - 26.0 [facility] Comment on above: Order Comment: Barbosa d- RB to SAMEJACKELINE CONTRERASTANI, 08/19/2022 00:40 Called- RB to SAMEAM SHAHZOËTANI, 08/19/2022 00:40 Performed By: #### A FPA4 ####[id number] [place] [address] CALCIUM,IONIZED 1.14 mmol/L Normal 1.10 - 1.33 [facility] Comment on above: Order Comment: Barbosa d- RB to SAMEJACKELINE CONTRERASTANI, 08/19/2022 00:40 Called- RB to SAMEJACKELINE SHAHZOËTANI, 08/19/2022 00:40 Performed By: #### A FPA4 ####[id number] [place] [address] Chloride [Moles/Vol] 102 mmol/L Normal 98 - 107 [facility] Comment on above: Order Comment: Barbosa d- RB to SAMEAM SHAHRESTANI, 08/19/2022 00:40 Called- RB to SAMEAM SHAHRESTANI, 08/19/2022 00:40 Performed By: #### A FPA4 ####[id number] [place] [address] Glucose [Mass/Vol] 330 mg/dL High 74 - 99 [facility] Comment on above: Order Comment: Barbosa d- RB to SAMEAM SHAHRESTANI, 08/19/2022 00:40 Called- RB to SAMEAM SHAHRESTANI, 08/19/2022 00:40 Performed By: #### A FPA4 ####[id number] [place] [address] Hematocrit (Bld) [Volume fraction] 33.0 % Low 41.0 - 52.0 [facility] Comment on above: Order Comment: Barbosa d- RB to SAMEJACKELINE SHAHZOËTANI, 08/19/2022 00:40 Called- RB to SAMEAM SHAHRESTANI, 08/19/2022 00:40 Performed By: #### A FPA4 ####[id number] [place] [address] Hemoglobin (Bld) [Mass/Vol] 10.9 g/dL Low 13.5 - 17.5 [facility] Comment on above: Order Comment: Barbosa d- RB to SAMEJACKELINE SHAHZOËTANI, 08/19/2022 00:40 Called- RB to SAMEAM SHAHRESTANI, 08/19/2022 00:40 Performed By: #### A FPA4 ####[id number] [place] [address] Lactate [Moles/Vol] 10.9 mmol/L Critically high 0.4 - 2.0 [facility] Comment on above: Order Comment: Barbosa d- RB to SAMEJACKELINE CONTRERASTANI, 08/19/2022 00:40 Called- RB to SAMEAM SHAHRESTANI, 08/19/2022 00:40 Result Comment: Call ed- RB to SAMEAM SHAHRESTANI, 08/19/2022 00:40 Called- RB to SAMEAM SHAHRESTANI, 08/19/2022 00:40 Performed By: #### A FPA4 ####[id number] [place] [address] OXY HGB 96.2 % Normal 94.0 - 98.0 [facility] Comment on above: Order Comment: Barbosa d- RB to SAMEAM SHAHRESTANI, 08/19/2022 00:40 Called- RB to SAMEAM SHAHRESTANI, 08/19/2022 00:40 Performed By: #### A FPA4 ####[id number] [place] [address] Oxygen (Bld) [Partial pressure] 142 mm[Hg] High 85 - 95 [facility] Comment on above: Order Comment: Barbosa d- RB to SAMEAM SHAHRESTANI, 08/19/2022 00:40 Called- RB to SAMEAM SHAHRESTANI, 08/19/2022 00:40 Performed By: #### A FPA4 ####[id number] [place] [address] PATIENT TEMPERATURE 37.0 degrees C Normal [facility] Comment on above: Order Comment: Barbosa d- RB to SAMEAM SHAHRESTANI, 08/19/2022 00:40 Called- RB to SAMEAM SHAHRESTANI, 08/19/2022 00:40 Result Comment: NOTE : PATIENT RESULTS ARE NOT CORRECTED FOR TEMPERATURE. Performed By: #### A FPA4 ####[id number] [id number] PCO2 34 mmHg Low 38 - 42 [facility] Comment on above: Order Comment: Barbosa d- RB to SAMEAM SHAHRESTANI, 08/19/2022 00:40 Called- RB to SAMEAM SHAHRESTANI, 08/19/2022 00:40 Performed By: #### A FPA4 ####[id number] [place] [address] pH (Bld) 7.31 [pH] Low 7.38 - 7.42 [facility] Comment on above: Order Comment: Barbosa d- RB to SAMEAM SHAHRESTANI, 08/19/2022 00:40 Called- RB to SAMEAM SHAHRESTANI, 08/19/2022 00:40 Performed By: #### A FPA4 ####[id number] [place] [address] Potassium [Moles/Vol] 4.6 mmol/L Normal 3.5 - 5.3 [facility] Comment on above: Order Comment: Barbosa d- RB to SAMEAM SHAHRESTANI, 08/19/2022 00:40 Called- RB to SAMEAM SHAHRESTANI, 08/19/2022 00:40 Performed By: #### A FPA4 ####[id number] [place] [address] SO2 99 % Normal 94 - 100 [facility] Comment on above: Order Comment: Barbosa d- RB to TERE CONTRERASTANI, 08/19/2022 00:40 Called- RB to TERE CONTRERASTANI, 08/19/2022 00:40 Performed By: #### A FPA4 ####[id number] [id number] Sodium [Moles/Vol] 135 mmol/L Low 136 - 145 [facility] Comment on above: Order Comment: Barbosa d- RB to TERE CONTRERASTANI, 08/19/2022 00:40 Called- RB to TERE CONTRERASTANI, 08/19/2022 00:40 Performed By: #### A FPA4 ####[id number] [id number] Anion gap [Moles/Vol] 23 mmol/L Normal 10 - 25 [facility] Comment on above: Order Comment: Barbosa d- RB to TERE MONTENEGROI, 08/18/2022 23:32 Performed By: #### A FPA4 ####[id number] [id number] BASE EXCESS-BLOOD -9.8 mmol/L Low -2.0 - 3.0 [facility] Comment on above: Order Comment: Barbosa d- RB to TERE CONTRERASTANI, 08/18/2022 23:32 Performed By: #### A FPA4 ####[id number] [place] [address] BICARB, CALCULATED 16.0 mmol/L Low 22.0 - 26.0 [facility] Comment on above: Order Comment: Barbosa d- RB to TERE CONTRERASTANI, 08/18/2022 23:32 Performed By: #### A FPA4 ####[id number] [id number] CALCIUM,IONIZED 1.15 mmol/L Normal 1.10 - 1.33 [facility] Comment on above: Order Comment: Barbosa d- RB to SAMEAM BENTANI, 08/18/2022 23:32 Performed By: #### A FPA4 ####[id number] [place] [address] Chloride [Moles/Vol] 102 mmol/L Normal 98 - 107 [facility] Comment on above: Order Comment: Barbosa d- RB to SAMEAM SHAHZOËTANI, 08/18/2022 23:32 Performed By: #### A FPA4 ####[id number] [place] [address] Glucose [Mass/Vol] 329 mg/dL High 74 - 99 [facility] Comment on above: Order Comment: Barbosa d- RB to SAMEAM SHAHZOËTANI, 08/18/2022 23:32 Performed By: #### A FPA4 ####[id number] [place] [address] Hematocrit (Bld) [Volume fraction] 31.0 % Low 41.0 - 52.0 [facility] Comment on above: Order Comment: Barbosa d- RB to SAMEJACKELINE CONTRERASTANI, 08/18/2022 23:32 Performed By: #### A FPA4 ####[id number] [place] [address] Hemoglobin (Bld) [Mass/Vol] 10.4 g/dL Low 13.5 - 17.5 [facility] Comment on above: Order Comment: Barbosa d- RB to SAMEAM SHAHZOËTANI, 08/18/2022 23:32 Performed By: #### A FPA4 ####[id number] [place] [address] Lactate [Moles/Vol] 12.1 mmol/L Critically high 0.4 - 2.0 [facility] Comment on above: Order Comment: [place] d- RB to SAMEAM SHAHZOËTANI, 08/18/2022 23:32 Result Comment: Call ed- RB to SAMEAM SHAHZOËTANI, 08/18/2022 23:32 Performed By: #### A FPA4 ####[id number] [place] [address] OXY HGB 95.9 % Normal 94.0 - 98.0 [facility] Comment on above: Order Comment: [place] d- RB to TERE ISLAS, 08/18/2022 23:32 Performed By: #### A FPA4 ####[id number] [place] [address] Oxygen (Bld) [Partial pressure] 139 mm[Hg] High 85 - 95 [facility] Comment on above: Order Comment: [place] d- RB to TERE ISLAS, 08/18/2022 23:32 Performed By: #### A FPA4 ####[id number] [place] [address] PATIENT TEMPERATURE 37.0 degrees C Normal [facility] Comment on above: Order Comment: [place] d- RB to TERE ISLAS, 08/18/2022 23:32 Result Comment: NOTE : PATIENT RESULTS ARE NOT CORRECTED FOR TEMPERATURE. Performed By: #### A FPA4 ####[id number] [place] [address] PCO2 34 mmHg Low 38 - 42 [facility] Comment on above: Order Comment: [place] d- RB to TERE ISLAS, 08/18/2022 23:32 Performed By: #### A FPA4 ####[id number] [place] [address] pH (Bld) 7.28 [pH] Low 7.38 - 7.42 [facility] Comment on above: Order Comment: [place] d- RB to TERE ISLAS, 08/18/2022 23:32 Performed By: #### A FPA4 ####[id number] [place] [address] Potassium [Moles/Vol] 5.0 mmol/L Normal 3.5 - 5.3 [facility] Comment on above: Order Comment: [place] d- RB to TERE ISLAS, 08/18/2022 23:32 Performed By: #### A FPA4 ####[id number] [place] [address] SO2 99 % Normal 94 - 100 [facility] Comment on above: Order Comment: Barbosa d- RB to TERE ISLAS, 08/18/2022 23:32 Performed By: #### A FPA4 ####[id number] [place] [address] Sodium [Moles/Vol] 136 mmol/L Normal 136 - 145 [facility] Comment on above: Order Comment: Barbosa d- RB to TERE ISLAS, 08/18/2022 23:32 Performed By: #### A FPA4 ####[id number] [place] [address] Anion gap [Moles/Vol] 24 mmol/L Normal 10 - 25 [facility] Comment on above: Order Comment: RB TO TERE ISLAS , 08/18/2022 23:19 Performed By: #### A FPA4 ####[id number] [place] [address] BASE EXCESS-BLOOD -9.9 mmol/L Low -2.0 - 3.0 [facility] Comment on above: Order Comment: RB TO TERE ISLAS , 08/18/2022 23:19 Performed By: #### A FPA4 ####[id number] [place] [address] BICARB, CALCULATED 16.1 mmol/L Low 22.0 - 26.0 [facility] Comment on above: Order Comment: RB TO TERE ISLAS , 08/18/2022 23:19 Performed By: #### A FPA4 ####[id number] [place] [address] CALCIUM,IONIZED 1.15 mmol/L Normal 1.10 - 1.33 [facility] Comment on above: Order Comment: RB TO TERE ISLAS , 08/18/2022 23:19 Performed By: #### A FPA4 ####[id number] [place] [address] Chloride [Moles/Vol] 102 mmol/L Normal 98 - 107 [facility] Comment on above: Order Comment: RB TO TERE ISLAS , 08/18/2022 23:19 Performed By: #### A FPA4 ####[id number] [place] [address] Glucose [Mass/Vol] 331 mg/dL High 74 - 99 [facility] Comment on above: Order Comment: RB TO TERE ISLAS , 08/18/2022 23:19 Performed By: #### A FPA4 ####[id number] [place] [address] Hematocrit (Bld) [Volume fraction] 32.0 % Low 41.0 - 52.0 [facility] Comment on above: Order Comment: RB TO TERE ISLAS , 08/18/2022 23:19 Performed By: #### A FPA4 ####[id number] [place] [address] Hemoglobin (Bld) [Mass/Vol] 10.5 g/dL Low 13.5 - 17.5 [facility] Comment on above: Order Comment: RB TO TERE ISLAS , 08/18/2022 23:19 Performed By: #### A FPA4 ####[id number] [place] [address] Lactate [Moles/Vol] 12.3 mmol/L Critically high 0.4 - 2.0 [facility] Comment on above: Order Comment: RB TO TERE ISLAS , 08/18/2022 23:19 Result Comment: RB T O TERE ISLAS , 08/18/2022 23:19 Performed By: #### A FPA4 ####[id number] [place] [address] OXY HGB 96.3 % Normal 94.0 - 98.0 [facility] Comment on above: Order Comment: RB TO TERE ISLAS , 08/18/2022 23:19 Performed By: #### A FPA4 ####[id number] [place] [address] Oxygen (Bld) [Partial pressure] 116 mm[Hg] High 85 - 95 [facility] Comment on above: Order Comment: RB TO TERE ISLAS , 08/18/2022 23:19 Performed By: #### A FPA4 ####[id number] [place] [address] PATIENT TEMPERATURE 37.0 degrees C Normal [facility] Comment on above: Order Comment: RB TO TERE ISLAS , 08/18/2022 23:19 Result Comment: NOTE : PATIENT RESULTS ARE NOT CORRECTED FOR TEMPERATURE. Performed By: #### A FPA4 ####[id number] [place] [address] PCO2 35 mmHg Low 38 - 42 [facility] Comment on above: Order Comment: RB TO TERE ISLAS , 08/18/2022 23:19 Performed By: #### A FPA4 ####[id number] [place] [address] pH (Bld) 7.27 [pH] Low 7.38 - 7.42 [facility] Comment on above: Order Comment: RB TO TERE ISLAS , 08/18/2022 23:19 Performed By: #### A FPA4 ####[id number] [place] [address] Potassium [Moles/Vol] 4.7 mmol/L Normal 3.5 - 5.3 [facility] Comment on above: Order Comment: RB TO TERE ISLAS , 08/18/2022 23:19 Performed By: #### A FPA4 ####[id number] [place] [address] SO2 99 % Normal 94 - 100 [facility] Comment on above: Order Comment: RB TO TERE ISLAS , 08/18/2022 23:19 Performed By: #### A FPA4 ####[id number] [place] [address] Sodium [Moles/Vol] 137 mmol/L Normal 136 - 145 [facility] Comment on above: Order Comment: RB TO TERE ISLAS , 08/18/2022 23:19 Performed By: #### A FPA4 ####[id number] [place] [address] BLOOD CULTURE, BACTERIALon 0 08-19-2022 BLOOD CULTURE, BACTERIAL Normal [facility] Comment on above: Performed By: #### B LDC ####[id number] [place] [address] BLOOD CULTURE, BACTERIAL Normal [facility] Comment on above: Performed By: #### B LDC ####[id number] [place] [address] CALCIUM, IONIZEDon 3 CALCIUM,IONIZED 1.07 mmol/L Low 1.10 - 1.33 [facility] Comment on above: Result Comment: The performance characteristics of ionized calcium tested in heparinized plasma or serum have been validated by the individual laboratory site where testing is performed. Testing on heparinized plasma or serum is not approved by the FDA; however, such approval is not necessary. Performed By: #### I ONC1 ####[id number] [place] [address] CBC AND DIFFERENTIALon 08-19 % AUTOMATED IMMATURE GRAN 1.0 % High 0.0 - 0.9 [facility] Comment on above: Result Comment: Nicki ture Granulocyte Count (IG) includes promyelocytes, myelocytes and metamyelocytes but does not include bands. Percent differential counts (%) should be interpreted in the context of the absolute cell counts (cells/L). Performed By: #### C BCDF ####[id number] [place] [address] Basophils (Bld) [#/Vol] 0.06 10*3/uL Normal 0.00 - 0.10 [facility] Comment on above: Performed By: #### C BCDF ####[id number] [place] [address] Basophils/100 WBC (Bld) 0.3 % Normal 0.0 - 2.0 [facility] Comment on above: Performed By: #### C BCDF ####[id number] [place] [address] Eosinophils (Bld) [#/Vol] 0.02 10*3/uL Normal 0.00 - 0.70 [facility] Comment on above: Performed By: #### C BCDF ####[id number] [place] [address] Eosinophils/100 WBC (Bld) 0.1 % Normal 0.0 - 6.0 [facility] Comment on above: Performed By: #### C BCDF ####[id number] [place] [address] Erythrocyte distribution width (RBC) [Ratio] 13.7 % Normal 11.5 - 14.5 [facility] Comment on above: Performed By: #### C BCDF ####[id number] [place] [address] Hematocrit (Bld) [Volume fraction] 30.7 % Low 41.0 - 52.0 [facility] Comment on above: Performed By: #### C BCDF ####[id number] [place] [address] Hemoglobin (Bld) [Mass/Vol] 10.5 g/dL Low 13.5 - 17.5 [facility] Comment on above: Performed By: #### C BCDF ####[id number] [place] [address] Lymphocytes (Bld) [#/Vol] 1.15 10*3/uL Low 1.20 - 4.80 [facility] Comment on above: Performed By: #### C BCDF ####[id number] [place] [address] Lymphocytes/100 WBC (Bld) 5.8 % Normal 13.0 - 44.0 [facility] Comment on above: Performed By: #### C BCDF ####[id number] [place] [address] MCHC (RBC) [Mass/Vol] 34.2 g/dL Normal 32.0 - 36.0 [facility] Comment on above: Performed By: #### C BCDF ####[id number] [place] [address] MCV (RBC) [Entitic vol] 94 fL Normal 80 - 100 [facility] Comment on above: Performed By: #### C BCDF ####[id number] [place] [address] Monocytes (Bld) [#/Vol] 1.34 10*3/uL High 0.10 - 1.00 [facility] Comment on above: Performed By: #### C BCDF ####[id number] [place] [address] Monocytes/100 WBC (Bld) 6.7 % Normal 2.0 - 10.0 [facility] Comment on above: Performed By: #### C BCDF ####[id number] [place] [address] Neutrophils (Bld) [#/Vol] 17.10 10*3/uL High 1.20 - 7.70 [facility] Comment on above: Performed By: #### C BCDF ####[id number] [place] [address] Neutrophils/100 WBC (Bld) 86.1 % Normal 40.0 - 80.0 [facility] Comment on above: Performed By: #### C BCDF ####[id number] [place] [address] NUCLEATED RBC 0.0 /100 WBC Normal 0.0-0.0 [facility] Comment on above: Performed By: #### C BCDF ####[id number] [place] [address] Platelets (Bld) [#/Vol] 182 10*3/uL Normal 150 - 450 [facility] Comment on above: Performed By: #### C BCDF ####[id number] [place] [address] RBC 3.28 x10E12/L Low 4.50 - 5.90 [facility] Comment on above: Performed By: #### C BCDF ####[id number] [place] [address] WBC (Bld) [#/Vol] 19.9 10*3/uL High 4.4 - 11.3 [facility] Comment on above: Performed By: #### C BCDF ####[id number] [place] [address] % AUTOMATED IMMATURE GRAN 1.3 % High 0.0 - 0.9 [facility] Comment on above: Result Comment: Nicki ture Granulocyte Count (IG) includes promyelocytes, myelocytes and metamyelocytes but does not include bands. Percent differential counts (%) should be interpreted in the context of the absolute cell counts (cells/L). Performed By: #### C BCDF ####[id number] [place] [address] Basophils (Bld) [#/Vol] 0.04 10*3/uL Normal 0.00 - 0.10 [facility] Comment on above: Performed By: #### C BCDF ####[id number] [place] [address] Basophils/100 WBC (Bld) 0.2 % Normal 0.0 - 2.0 [facility] Comment on above: Performed By: #### C BCDF ####[id number] [place] [address] Eosinophils (Bld) [#/Vol] 0.00 10*3/uL Normal 0.00 - 0.70 [facility] Comment on above: Performed By: #### C BCDF ####[id number] [place] [address] Eosinophils/100 WBC (Bld) 0.0 % Normal 0.0 - 6.0 [facility] Comment on above: Performed By: #### C BCDF ####[id number] [place] [address] Erythrocyte distribution width (RBC) [Ratio] 13.4 % Normal 11.5 - 14.5 [facility] Comment on above: Performed By: #### C BCDF ####[id number] [place] [address] Hematocrit (Bld) [Volume fraction] 30.7 % Low 41.0 - 52.0 [facility] Comment on above: Performed By: #### C BCDF ####[id number] [place] [address] Hemoglobin (Bld) [Mass/Vol] 10.0 g/dL Low 13.5 - 17.5 [facility] Comment on above: Performed By: #### C BCDF ####[id number] [place] [address] Lymphocytes (Bld) [#/Vol] 0.81 10*3/uL Low 1.20 - 4.80 [facility] Comment on above: Performed By: #### C BCDF ####[id number] [place] [address] Lymphocytes/100 WBC (Bld) 3.4 % Normal 13.0 - 44.0 [facility] Comment on above: Performed By: #### C BCDF ####[id number] [place] [address] MCHC (RBC) [Mass/Vol] 32.6 g/dL Normal 32.0 - 36.0 [facility] Comment on above: Performed By: #### C BCDF ####[id number] [place] [address] MCV (RBC) [Entitic vol] 97 fL Normal 80 - 100 [facility] Comment on above: Performed By: #### C BCDF ####[id number] [place] [address] Monocytes (Bld) [#/Vol] 0.75 10*3/uL Normal 0.10 - 1.00 [facility] Comment on above: Performed By: #### C BCDF ####[id number] [place] [address] Monocytes/100 WBC (Bld) 3.1 % Normal 2.0 - 10.0 [facility] Comment on above: Performed By: #### C BCDF ####[id number] [place] [address] Neutrophils (Bld) [#/Vol] 22.12 10*3/uL High 1.20 - 7.70 [facility] Comment on above: Performed By: #### C BCDF ####[id number] [place] [address] Neutrophils/100 WBC (Bld) 92.0 % Normal 40.0 - 80.0 [facility] Comment on above: Performed By: #### C BCDF ####[id number] [place] [address] NUCLEATED RBC 0.0 /100 WBC Normal 0.0-0.0 [facility] Comment on above: Performed By: #### C BCDF ####[id number] [place] [address] Platelets (Bld) [#/Vol] 194 10*3/uL Normal 150 - 450 [facility] Comment on above: Performed By: #### C BCDF ####[id number] [place] [address] RBC 3.16 x10E12/L Low 4.50 - 5.90 [facility] Comment on above: Performed By: #### C BCDF ####[id number] [place] [address] WBC (Bld) [#/Vol] 24.0 10*3/uL High 4.4 - 11.3 [facility] Comment on above: Performed By: #### C BCDF ####[id number] [place] [address] COAGULATION SCREENon 023 aPTT Coag (Bld) [Time] 28 s Normal 27 - 38 [facility] Comment on above: Result Comment: Note new reference range as of 08/02/2022 at 10:00am. Performed By: #### C OAGS ####[id number] [place] [address] PT Coag (PPP) [Time] 15.4 s High 9.8 - 12.8 [facility] Comment on above: Result Comment: Note new reference range as of 08/02/2022 at 10:00am. Performed By: #### C OAGS ####[id number] [place] [address] PT, INR 1.4 High 0.9 - 1.1 [facility] Comment on above: Performed By: #### C OAGS ####[id number] [place] [address] Cult, Bloodon 08-19-2022 Bacteria identified Cx Nom (Bld) [facility] Work Phone: Bacteria identified Cx Nom (Bld) [facility] Work Phone: Cult, Resp. Lower + smearon 08-19-2022 Bacteria identified Respiratory culture Nom (Unsp spec) [facility] Work Phone: Cult, Urineon 08-19-2022 Bacteria identified Cx Nom (U) [facility] Work Phone: Daily Progress Note - Critic al Care-CTICUon 08-19-2022 Daily Progress Note - Critical Care-CTICU Normal [facility] EMR ADDONon 08-19-2022 ADDON CONFIRMATION REQUEST REC'D Normal [facility] Comment on above: Performed By: #### E MRAD ####NO LOCATION NEEDED GLUCOSE-POCTon 08-19-2022 Glucose [Mass/Vol] 149 mg/dL High 74 - 99 [facility] Comment on above: Performed By: #### G EDI ####[id number] [place] [address] Glucose [Mass/Vol] 127 mg/dL High 74 - 99 [facility] Comment on above: Performed By: #### G EDI ####[id number] [place] [address] Glucose [Mass/Vol] 95 mg/dL Normal 74 - 99 [facility] Comment on above: Performed By: #### G EDI ####[id number] [place] [address] Glucose [Mass/Vol] 96 mg/dL Normal 74 - 99 [facility] Comment on above: Performed By: #### G EDI ####[id number] [place] [address] Glucose [Mass/Vol] 146 mg/dL High 74 - 99 [facility] Comment on above: Performed By: #### G EDI ####[id number] [place] [address] Glucose [Mass/Vol] 232 mg/dL High 74 - 99 [facility] Comment on above: Performed By: #### G EDI ####[id number] [place] [address] Glucose [Mass/Vol] 282 mg/dL High 74 - 99 [facility] Comment on above: Performed By: #### G EDI ####[id number] [place] [address] Glucose [Mass/Vol] 268 mg/dL High 74 - [address] [place] [address] Comment on above: Performed By: #### G EDI ####[id number] [place] [address] Glucose [Mass/Vol] 287 mg/dL High 74 - 99 [facility] Comment on above: Performed By: #### G EDI ####[id number] [place] [address] Glucose [Mass/Vol] 290 mg/dL High 74 - 99 [facility] Comment on above: Performed By: #### G EDI ####[id number] [place] [address] Glucose [Mass/Vol] 284 mg/dL High 74 - 99 [facility] Comment on above: Performed By: #### G EDI ####[id number] [place] [address] LIPID PANEL (CORONARY RISK 2 )on 08-19-2022 Cholesterol [Mass/Vol] 66 mg/dL Normal 0 - 199 [facility] Comment on above: Result Comment: . AG [...] Metamizole dosing. Performed By: #### L IPID ####[id number] [place] [address] Cholesterol in HDL [Mass/Vol] 22.4 mg/dL Abnormal [facility] Comment on above: Result Comment: . AG E VERY LOW LOW NORMAL HIGH 0-19 Y < 35 < 40 40-45 ---- 20-24 Y ---- < 40 >45 ---- >24 Y ---- < 40 40-60 >60. Performed By: #### L IPID ####[id number] [place] [address] Cholesterol in LDL [Mass/Vol] 31 mg/dL Normal 0 - 99 [facility] Comment on above: Result Comment: . NE CHAPARRO BA AGE DESIRABLE OPTIMAL HIGH HIGH VERY HIGH 0-19 Y 0 - 109 --- 110-129 >/= 130 ---- 20-24 Y 0 - 119 --- 120-159 >/= 160 ---- >24 Y 0 - 99 100-129 130-159 160-189 >/=190. Performed By: #### L IPID ####[id number] [place] [address] Cholesterol in VLDL [Mass/Vol] 13 mg/dL Normal 0 - 40 [facility] Comment on above: Performed By: #### L IPID ####[id number] [place] [address] Cholesterol.total/Chol esterol in HDL [Mass ratio] 2.9 {ratio} Normal [facility] Comment on above: Result Comment: REF VALUESDESIRABLE < 3.4HIGH RISK > 5.0 Performed By: #### L IPID ####[id number] [place] [address] Triglyceride [Mass/Vol] 64 mg/dL Normal 0 - 149 [facility] Comment on above: Result Comment: . AG [...] Metamizole dosing. Performed By: #### L IPID ####[id number] [place] [address] MAGNESIUMon 08-19-2022 Magnesium [Mass/Vol] 2.15 mg/dL Normal 1.60 - 2.40 [facility] Comment on above: Performed By: #### M G ####[id number] [place] [address] Magnesium [Mass/Vol] 2.41 mg/dL High 1.60 - 2.40 [facility] Comment on above: Performed By: #### M G ####[id number] [place] [address] Nutrition Therapy-Assessment on 08-19-2022 Nutrition Therapy-Assessment Normal [facility] RENAL FUNCTION PANELon 08-19 Albumin [Mass/Vol] 3.5 g/dL Normal 3.4 - 5.0 [facility] Comment on above: Performed By: #### R ENAL ####[id number] [place] [address] Anion gap [Moles/Vol] 13 mmol/L Normal 10 - 20 [facility] Comment on above: Performed By: #### R ENAL ####[id number] [place] [address] Calcium [Mass/Vol] 8.5 mg/dL Low 8.6 - 10.6 [facility] Comment on above: Performed By: #### R ENAL ####[id number] [place] [address] Chloride [Moles/Vol] 102 mmol/L Normal 98 - 107 [facility] Comment on above: Performed By: #### R ENAL ####[id number] [place] [address] Creatinine [Mass/Vol] 1.95 mg/dL High 0.50 - 1.30 [facility] Comment on above: Performed By: #### R ENAL ####[id number] [place] [address] GFR/1.73 sq M.predicted among non-blacks MDRD (S/P/Bld) [Vol rate/Area] 43 mL/min/{1.73_m2} Abnormal >90 [facility] Comment on above: Result Comment: CALC ULATIONS OF ESTIMATED GFR ARE PERFORMED USING THE 2020 CKD-EPI STUDY REFIT EQUATION WITHOUT THE RACE VARIABLE FOR THE IDMS-TRACEABLE CREATININE METHODS.https://jasn.asnjournals.org/content/early/A SN.6249111171 Performed By: #### R ENAL ####[id number] [place] [address] Glucose [Mass/Vol] 137 mg/dL High 74 - 99 [facility] Comment on above: Performed By: #### R ENAL ####[id number] [place] [address] HCO3 (Bld) [Moles/Vol] 29 mmol/L Normal 21 - 32 [facility] Comment on above: Performed By: #### R ENAL ####[id number] [place] [address] Phosphate [Mass/Vol] 5.7 mg/dL High 2.5 - 4.9 [facility] Comment on above: Result Comment: The performance characteristics of phosphorus testing in heparinized plasma have been validated by the individual laboratory site where testing is performed. Testing on heparinized plasma is not approved by the FDA; however, such approval is not necessary. Performed By: #### R ENAL ####[id number] [place] [address] Potassium [Moles/Vol] 5.2 mmol/L Normal 3.5 - 5.3 [facility] Comment on above: Performed By: #### R ENAL ####[id number] [place] [address] Sodium [Moles/Vol] 139 mmol/L Normal 136 - 145 [facility] Comment on above: Performed By: #### R ENAL ####[id number] [place] [address] Urea nitrogen [Mass/Vol] 21 mg/dL Normal 6 - 23 [facility] Comment on above: Performed By: #### R ENAL ####[id number] [place] [address] Albumin [Mass/Vol] 3.9 g/dL Normal 3.4 - 5.0 [facility] Comment on above: Performed By: #### R ENAL ####[id number] [place] [address] Anion gap [Moles/Vol] 24 mmol/L High 10 - 20 [facility] Comment on above: Performed By: #### R ENAL ####[id number] [place] [address] Calcium [Mass/Vol] 8.6 mg/dL Normal 8.6 - 10.6 [facility] Comment on above: Performed By: #### R ENAL ####[id number] [place] [address] Chloride [Moles/Vol] 100 mmol/L Normal 98 - 107 [facility] Comment on above: Performed By: #### R ENAL ####[id number] [place] [address] Creatinine [Mass/Vol] 1.94 mg/dL High 0.50 - 1.30 [facility] Comment on above: Performed By: #### R ENAL ####[id number] [place] [address] GFR/1.73 sq M.predicted among non-blacks MDRD (S/P/Bld) [Vol rate/Area] 43 mL/min/{1.73_m2} Abnormal >90 [facility] Comment on above: Result Comment: CALC ULATIONS OF ESTIMATED GFR ARE PERFORMED USING THE 2020 CKD-EPI STUDY REFIT EQUATION WITHOUT THE RACE VARIABLE FOR THE IDMS-TRACEABLE CREATININE METHODS.https://jasn.asnjournals.org/content//A SN.0526901798 Performed By: #### R ENAL ####[id number] [place] [address] Glucose [Mass/Vol] 321 mg/dL High 74 - 99 [facility] Comment on above: Performed By: #### R ENAL ####[id number] [place] [address] HCO3 (Bld) [Moles/Vol] 18 mmol/L Low 21 - 32 [facility] Comment on above: Performed By: #### R ENAL ####[id number] [place] [address] Phosphate [Mass/Vol] 3.8 mg/dL Normal 2.5 - 4.9 [facility] Comment on above: Result Comment: The performance characteristics of phosphorus testing in heparinized plasma have been validated by the individual laboratory site where testing is performed. Testing on heparinized plasma is not approved by the FDA; however, such approval is not necessary. Performed By: #### R ENAL ####[id number] [place] [address] Potassium [Moles/Vol] 4.6 mmol/L Normal 3.5 - 5.3 [facility] Comment on above: Performed By: #### R ENAL ####[id number] [place] [address] Sodium [Moles/Vol] 137 mmol/L Normal 136 - 145 [facility] Comment on above: Performed By: #### R ENAL ####[id number] [place] [address] Urea nitrogen [Mass/Vol] 21 mg/dL Normal 6 - 23 [facility] Comment on above: Performed By: #### R ENAL ####[id number] [place] [address] RESPIRATORY CULT./SM,LOWERon 07-07-2023 RESPIRATORY CULT./SM,LOWER Normal [facility] Comment on above: Performed By: #### R ESPL ####[id number] [place] [address] TH CHEST 1 VIEWon 08-19-2022 TH CHEST 1 VIEW Normal [facility] TH CHEST 1 VIEW Normal [facility] UA MICROSCOPICon 08-19-2022 BACTERIA 1+ /HPF Abnormal [facility] Comment on above: Performed By: #### U AMIC ####[id number] [place] [address] HYALINE CAST 2+ /LPF Abnormal [facility] Comment on above: Performed By: #### U AMIC ####[id number] [place] [address] Mucus Ql (Urine sed) 1+ /LPF Normal [facility] Comment on above: Performed By: #### U AMIC ####[id number] [place] [address] RBC 13 /HPF Abnormal 0-5 [facility] Comment on above: Performed By: #### U AMIC ####[id number] [place] [address] SQUAMOUS EPITH. CELLS 1 /HPF Normal [facility] Comment on above: Performed By: #### U AMIC ####[id number] [place] [address] WBC 29 /HPF Abnormal 0-5 [facility] Comment on above: Performed By: #### U AMIC ####[id number] [place] [address] Lab Specimen Source Normal [facility] Comment on above: Performed By: #### U AMIC ####[id number] [place] [address] Performed By: #### U ARFX ####[id number] [place] [address] URINALYSIS WITH CULTURE IF I NDICATEDon 08-19-2022 Bilirubin Ql (U) Negative Normal NEGATIVE [facility] Comment on above: Performed By: #### U ARFX ####[id number] [place] [address] Glucose Ql (U) Negative Normal NEGATIVE [facility] Comment on above: Performed By: #### U ARFX ####[id number] [place] [address] Hemoglobin Ql (U) MODERATE (2+) Abnormal NEGATIVE [facility] Comment on above: Performed By: #### U ARFX ####[id number] [place] [address] Ketones Ql (U) Negative Normal NEGATIVE [facility] Comment on above: Performed By: #### U ARFX ####[id number] [place] [address] Leukocyte esterase Test strip Ql (U) Negative Normal NEGATIVE [facility] Comment on above: Performed By: #### U ARFX ####[id number] [place] [address] Nitrite Ql (U) Negative Normal NEGATIVE [facility] Comment on above: Performed By: #### U ARFX ####[id number] [place] [address] pH (U) 6.0 [pH] Normal 5.0 - 8.0 [facility] Comment on above: Performed By: #### U ARFX ####[id number] [place] [address] Protein Ql (U) 100 (2+) Abnormal NEGATIVE [facility] Comment on above: Performed By: #### U ARFX ####[id number] [place] [address] Specific gravity (U) [Rel density] 1.018 Normal 1.005 - 1.035 [facility] Comment on above: Performed By: #### U ARFX ####[id number] [place] [address] Urobilinogen (U) [Mass/Vol] mg/dL Normal 0.0 - 1.9 [facility] Comment on above: Performed By: #### U ARFX ####[id number] [place] [address] Appearance (U) HAZY Normal CLEAR [facility] Comment on above: Performed By: #### U ARFX ####[id number] [place] [address] Color (U) RED Normal STRAW,YELLOW [facility] Comment on above: Performed By: #### U ARFX ####[id number] [place] [address] URINE CULTURE,BACTERIALon URINE CULTURE,BACTERIAL Normal [facility] Comment on above: Performed By: #### U RINC ####[id number] [place] [address] VENOUS FULL PANELon 08-20-19 23 Anion gap [Moles/Vol] 14 mmol/L Normal 10 - 25 [facility] Comment on above: Order Comment: Barbosa d- RB to PAM BOUCHAHINE, 08/19/2022 04:20 Performed By: #### V FPA4 ####[id number] 2536406 BASE EXCESS-BLOOD -0.4 mmol/L Normal -2.0 - 3.0 [facility] Comment on above: Order Comment: Barbosa d- RB to PAM BOUCHAHINE, 08/19/2022 04:20 Performed By: #### V FPA4 ####[id number] 2536406 BICARB, CALCULATED 24.1 mmol/L Normal 22.0 - 26.0 [facility] Comment on above: Order Comment: Barbosa d- RB to PAM BOUCHAHINE, 08/19/2022 04:20 Performed By: #### V FPA4 ####[id number] 2536406 CALCIUM,IONIZED 1.14 mmol/L Normal 1.10 - 1.33 [facility] Comment on above: Order Comment: Barbosa d- RB to PAM BOUCHAHINE, 08/19/2022 04:20 Performed By: #### V FPA4 ####[id number] [place] [address] Chloride [Moles/Vol] 103 mmol/L Normal 98 - 107 [facility] Comment on above: Order Comment: Barbosa d- RB to PAM BOUCHAHINE, 08/19/2022 04:20 Performed By: #### V FPA4 ####[id number] [place] [address] Glucose [Mass/Vol] 294 mg/dL High 74 - 99 [facility] Comment on above: Order Comment: Barbosa d- RB to PAM BOUCHAHINE, 08/19/2022 04:20 Performed By: #### V FPA4 ####[id number] [place] [address] Hematocrit (Bld) [Volume fraction] 32.0 % Low 41.0 - 52.0 [facility] Comment on above: Order Comment: Barbosa d- RB to PAM BOUCHAHINE, 08/19/2022 04:20 Performed By: #### V FPA4 ####[id number] [place] [address] Hemoglobin (Bld) [Mass/Vol] 10.6 g/dL Low 13.5 - 17.5 [facility] Comment on above: Order Comment: Barbosa d- RB to PAM BOUCHAHINE, 08/19/2022 04:20 Performed By: #### V FPA4 ####[id number] [place] [address] Lactate [Moles/Vol] 5.1 mmol/L Critically high 0.4 - 2.0 [facility] Comment on above: Order Comment: Barbosa d- RB to PAM BOUCHAHINE, 08/19/2022 04:20 Result Comment: Call ed- RB to PAM BOUCHAHINE, 08/19/2022 04:20 Performed By: #### V FPA4 ####[id number] [place] [address] OXY HGB 78.1 % High 45.0 - 75.0 [facility] Comment on above: Order Comment: Barbosa d- RB to PAM BOUCHAHINE, 08/19/2022 04:20 Performed By: #### V FPA4 ####[id number] [place] [address] Oxygen (Bld) [Partial pressure] 49 mm[Hg] High 35 - 45 [facility] Comment on above: Order Comment: Barbosa d- RB to PAM BOUCHAHINE, 08/19/2022 04:20 Performed By: #### V FPA4 ####[id number] [place] [address] PATIENT TEMPERATURE 37.0 degrees C Normal [facility] Comment on above: Order Comment: Barbosa d- RB to PAM BOUCHAHINE, 08/19/2022 04:20 Result Comment: NOTE : PATIENT RESULTS ARE NOT CORRECTED FOR TEMPERATURE. Performed By: #### V FPA4 ####[id number] [place] [address] PCO2 38 mmHg Low 41 - 51 [facility] Comment on above: Order Comment: Barbosa d- RB to PAM BOUCHAHINE, 08/19/2022 04:20 Performed By: #### V FPA4 ####[id number] [place] [address] pH (Bld) 7.41 [pH] Normal 7.33 - 7.43 [facility] Comment on above: Order Comment: Barbosa d- RB to PAM BOUCHAHINE, 08/19/2022 04:20 Performed By: #### V FPA4 ####[id number] [place] [address] Potassium [Moles/Vol] 4.6 mmol/L Normal 3.5 - 5.3 [facility] Comment on above: Order Comment: Barbosa d- RB to PAM BOUCHAHINE, 08/19/2022 04:20 Performed By: #### V FPA4 ####[id number] [place] [address] SO2 80 % High 45 - 75 [facility] Comment on above: Order Comment: Barbosa d- RB to PAM BOUCHAHINE, 08/19/2022 04:20 Performed By: #### V FPA4 ####[id number] [place] [address] Sodium [Moles/Vol] 136 mmol/L Normal 136 - 145 [facility] Comment on above: Order Comment: Barbosa d- RB to PAM MACIEL, 08/19/2022 04:20 Performed By: #### V FPA4 ####[id number] [place] [address] Anion gap [Moles/Vol] 19 mmol/L Normal 10 - 25 [facility] Comment on above: Order Comment: Barbosa d- RB to TERE MONTENEGROI, 08/19/2022 00:40 Performed By: #### V FPA4 ####[id number] [place] [address] BASE EXCESS-BLOOD -5.7 mmol/L Low -2.0 - 3.0 [facility] Comment on above: Order Comment: Barbosa d- RB to TERE MONTENEGROI, 08/19/2022 00:40 Performed By: #### V FPA4 ####[id number] [place] [address] BICARB, CALCULATED 20.1 mmol/L Low 22.0 - 26.0 [facility] Comment on above: Order Comment: Barbosa d- RB to TERE CONTRERASTANI, 08/19/2022 00:40 Performed By: #### V FPA4 ####[id number] [place] [address] CALCIUM,IONIZED 1.18 mmol/L Normal 1.10 - 1.33 [facility] Comment on above: Order Comment: Barbosa d- RB to SAMEAM SHAHZOËTANI, 08/19/2022 00:40 Performed By: #### V FPA4 ####[id number] [place] [address] Chloride [Moles/Vol] 102 mmol/L Normal 98 - 107 [facility] Comment on above: Order Comment: Barbosa d- RB to SAMEAM SHAHZOËTANI, 08/19/2022 00:40 Performed By: #### V FPA4 ####[id number] [place] [address] Glucose [Mass/Vol] 348 mg/dL High 74 - 99 [facility] Comment on above: Order Comment: Barbosa d- RB to TERE ISLAS, 08/19/2022 00:40 Performed By: #### V FPA4 ####[id number] [place] [address] Hematocrit (Bld) [Volume fraction] 27.0 % Low 41.0 - 52.0 [facility] Comment on above: Order Comment: Barbosa d- RB to TERE ISLAS, 08/19/2022 00:40 Performed By: #### V FPA4 ####[id number] [place] [address] Hemoglobin (Bld) [Mass/Vol] 9.1 g/dL Low 13.5 - 17.5 [facility] Comment on above: Order Comment: Barbosa d- RB to TERE ISLAS, 08/19/2022 00:40 Performed By: #### V FPA4 ####[id number] [place] [address] Lactate [Moles/Vol] 10.0 mmol/L Critically high 0.4 - 2.0 [facility] Comment on above: Order Comment: Barbosa d- RB to TERE ISLAS, 08/19/2022 00:40 Result Comment: Call ed- RB to TERE ISLAS, 08/19/2022 00:40 Performed By: #### V FPA4 ####[id number] [place] [address] OXY HGB 65.0 % Normal 45.0 - 75.0 [facility] Comment on above: Order Comment: Barbosa d- RB to TERE ISLAS, 08/19/2022 00:40 Performed By: #### V FPA4 ####[id number] [place] [address] Oxygen (Bld) [Partial pressure] 42 mm[Hg] Normal 35 - 45 [facility] Comment on above: Order Comment: Barbosa d- RB to SAMEJACKELINE CONTRERASTANI, 08/19/2022 00:40 Performed By: #### V FPA4 ####[id number] [place] [address] PATIENT TEMPERATURE 37.0 degrees C Normal [facility] Comment on above: Order Comment: Barbosa d- RB to SAMEJACKELINE CONTRERASTANI, 08/19/2022 00:40 Result Comment: NOTE : PATIENT RESULTS ARE NOT CORRECTED FOR TEMPERATURE. Performed By: #### V FPA4 ####[id number] [place] [address] PCO2 40 mmHg Low 41 - 51 [facility] Comment on above: Order Comment: Barbosa d- RB to SAMEJACKELINE CONTRERASTANI, 08/19/2022 00:40 Performed By: #### V FPA4 ####[id number] [place] [address] pH (Bld) 7.31 [pH] Low 7.33 - 7.43 [facility] Comment on above: Order Comment: Barbosa d- RB to SAMEJACKELINE CONTRERASTANI, 08/19/2022 00:40 Performed By: #### V FPA4 ####[id number] [place] [address] Potassium [Moles/Vol] 4.7 mmol/L Normal 3.5 - 5.3 [facility] Comment on above: Order Comment: Barbosa d- RB to SAMEAM BENTANI, 08/19/2022 00:40 Performed By: #### V FPA4 ####[id number] [place] [address] SO2 67 % Normal 45 - 75 [facility] Comment on above: Order Comment: Barbosa d- RB to SAMEAM SHAHZOËTANI, 08/19/2022 00:40 Performed By: #### V FPA4 ####[id number] [place] [address] Sodium [Moles/Vol] 136 mmol/L Normal 136 - 145 [facility] Comment on above: Order Comment: Barbosa d- RB to SAMEAM SHAHZOËTANI, 08/19/2022 00:40 Performed By: #### V FPA4 ####[id number] [place] [address] ACT-HIGH RANGEon 08-18-2022 ACT-HIGH RANGE 106 SECONDS Normal 96 - 152 [facility] Comment on above: Result Comment: Note new reference range as of 2018. Target ACT range will vary based on the patient population, clinical status, and surgical intervention occurring. Performed By: #### A CTP ####[id number] [place] [address] ACT-HIGH RANGE 455 SECONDS High 96 - 152 [facility] Comment on above: Result Comment: Note new reference range as of 2018. Target ACT range will vary based on the patient population, clinical status, and surgical intervention occurring. Performed By: #### A CTP ####[id number] [place] [address] ACT-HIGH RANGE 457 SECONDS High 96 - 152 [facility] Comment on above: Result Comment: Note new reference range as of 2018. Target ACT range will vary based on the patient population, clinical status, and surgical intervention occurring. Performed By: #### A CTP ####[id number] [place] [address] ACT-HIGH RANGE 412 SECONDS High 96 - 152 [facility] Comment on above: Result Comment: Note new reference range as of 2018. Target ACT range will vary based on the patient population, clinical status, and surgical intervention occurring. Performed By: #### A CTP ####[id number] [place] [address] ACT-HIGH RANGE 435 SECONDS High 96 - 152 [facility] Comment on above: Result Comment: Note new reference range as of 2018. Target ACT range will vary based on the patient population, clinical status, and surgical intervention occurring. Performed By: #### A CTP ####[id number] [place] [address] ACT-HIGH RANGE 399 SECONDS High 96 - 152 [facility] Comment on above: Result Comment: Note new reference range as of 2018. Target ACT range will vary based on the patient population, clinical status, and surgical intervention occurring. Performed By: #### A CTP ####[id number] [place] [address] ACT-HIGH RANGE 407 SECONDS High 96 - 152 [facility] Comment on above: Result Comment: Note new reference range as of 2018. Target ACT range will vary based on the patient population, clinical status, and surgical intervention occurring. Performed By: #### A CTP ####[id number] [place] [address] ACT-HIGH RANGE 103 SECONDS Normal 96 - 152 [facility] Comment on above: Result Comment: Note new reference range as of 2018. Target ACT range will vary based on the patient population, clinical status, and surgical intervention occurring. Performed By: #### A CTP ####[id number] [id number] ARTERIAL BLOOD GASon 023 APPARATUS Canceled Normal [facility] Comment on above: Order Comment: TEST ARTERIAL BLOOD GAS WAS CANCELLED, 08/18/2022 15:29 SAMPLE UNSUITABLE FORTESTING. SYRINGE NOT PROPERLY CAPPED AND EXPOSED TO AIR.. Performed By: #### B LGA2 ####[id number] [place] [address] BASE EXCESS-BLOOD Canceled Normal -2.0 - 3.0 [facility] Comment on above: Order Comment: TEST ARTERIAL BLOOD GAS WAS CANCELLED, 08/18/2022 15:29 SAMPLE UNSUITABLE FORTESTING. SYRINGE NOT PROPERLY CAPPED AND EXPOSED TO AIR.. Performed By: #### B LGA2 ####[id number] [place] [address] BICARB, CALCULATED Canceled Normal 22.0 - 26.0 [facility] Comment on above: Order Comment: TEST ARTERIAL BLOOD GAS WAS CANCELLED, 08/18/2022 15:29 SAMPLE UNSUITABLE FORTESTING. SYRINGE NOT PROPERLY CAPPED AND EXPOSED TO AIR.. Performed By: #### B LGA2 ####[id number] [place] [address] CPAP Canceled Normal [facility] Comment on above: Order Comment: TEST ARTERIAL BLOOD GAS WAS CANCELLED, 08/18/2022 15:29 SAMPLE UNSUITABLE FORTESTING. SYRINGE NOT PROPERLY CAPPED AND EXPOSED TO AIR.. Performed By: #### B LGA2 ####[id number] [place] [address] EPAP CMH2O Canceled Normal [facility] Comment on above: Order Comment: TEST ARTERIAL BLOOD GAS WAS CANCELLED, 08/18/2022 15:29 SAMPLE UNSUITABLE FORTESTING. SYRINGE NOT PROPERLY CAPPED AND EXPOSED TO AIR.. Performed By: #### B LGA2 ####[id number] [place] [address] FIO2 Canceled Normal [facility] Comment on above: Order Comment: TEST ARTERIAL BLOOD GAS WAS CANCELLED, 08/18/2022 15:29 SAMPLE UNSUITABLE FORTESTING. SYRINGE NOT PROPERLY CAPPED AND EXPOSED TO AIR.. Performed By: #### B LGA2 ####[id number] [place] [address] FLOW Canceled Normal [facility] Comment on above: Order Comment: TEST ARTERIAL BLOOD GAS WAS CANCELLED, 08/18/2022 15:29 SAMPLE UNSUITABLE FORTESTING. SYRINGE NOT PROPERLY CAPPED AND EXPOSED TO AIR.. Performed By: #### B LGA2 ####[id number] [place] [address] FREQUENCY (BPM) Canceled Normal [facility] Comment on above: Order Comment: TEST ARTERIAL BLOOD GAS WAS CANCELLED, 08/18/2022 15:29 SAMPLE UNSUITABLE FORTESTING. SYRINGE NOT PROPERLY CAPPED AND EXPOSED TO AIR.. Performed By: #### B LGA2 ####[id number] [place] [address] HIGH PEEP CMH2O Canceled Normal [facility] Comment on above: Order Comment: TEST ARTERIAL BLOOD GAS WAS CANCELLED, 08/18/2022 15:29 SAMPLE UNSUITABLE FORTESTING. SYRINGE NOT PROPERLY CAPPED AND EXPOSED TO AIR.. Performed By: #### B LGA2 ####[id number] [place] [address] INSPIRATORY TIME Canceled Normal [facility] Comment on above: Order Comment: TEST ARTERIAL BLOOD GAS WAS CANCELLED, 08/18/2022 15:29 SAMPLE UNSUITABLE FORTESTING. SYRINGE NOT PROPERLY CAPPED AND EXPOSED TO AIR.. Performed By: #### B LGA2 ####[id number] [id number] INSPIRATORY/EXPIRATORY RATIO Canceled Normal [facility] Comment on above: Order Comment: TEST ARTERIAL BLOOD GAS WAS CANCELLED, 08/18/2022 15:29 SAMPLE UNSUITABLE FORTESTING. SYRINGE NOT PROPERLY CAPPED AND EXPOSED TO AIR.. Performed By: #### B LGA2 ####[id number] 2536406 IPAP CMH2O Canceled Normal [facility] Comment on above: Order Comment: TEST ARTERIAL BLOOD GAS WAS CANCELLED, 08/18/2022 15:29 SAMPLE UNSUITABLE FORTESTING. SYRINGE NOT PROPERLY CAPPED AND EXPOSED TO AIR.. Performed By: #### B LGA2 ####[id number] [place] [address] LOW PEEP CMH2O Canceled Normal [facility] Comment on above: Order Comment: TEST ARTERIAL BLOOD GAS WAS CANCELLED, 08/18/2022 15:29 SAMPLE UNSUITABLE FORTESTING. SYRINGE NOT PROPERLY CAPPED AND EXPOSED TO AIR.. Performed By: #### B LGA2 ####[id number] 2536406 OXY HGB Canceled Normal [facility] Comment on above: Order Comment: TEST ARTERIAL BLOOD GAS WAS CANCELLED, 08/18/2022 15:29 SAMPLE UNSUITABLE FORTESTING. SYRINGE NOT PROPERLY CAPPED AND EXPOSED TO AIR.. Performed By: #### B LGA2 ####[id number] [id number] PATIENT TEMPERATURE Canceled Normal [facility] Comment on above: Order Comment: TEST ARTERIAL BLOOD GAS WAS CANCELLED, 08/18/2022 15:29 SAMPLE UNSUITABLE FORTESTING. SYRINGE NOT PROPERLY CAPPED AND EXPOSED TO AIR.. Result Comment: NOTE : PATIENT RESULTS ARE NOT CORRECTED FOR TEMPERATURE. Performed By: #### B LGA2 ####[id number] [place] [address] PC CONTROL Canceled Normal [facility] Comment on above: Order Comment: TEST ARTERIAL BLOOD GAS WAS CANCELLED, 08/18/2022 15:29 SAMPLE UNSUITABLE FORTESTING. SYRINGE NOT PROPERLY CAPPED AND EXPOSED TO AIR.. Performed By: #### B LGA2 ####[id number] [place] [address] PCO2 Canceled Normal [facility] Comment on above: Order Comment: TEST ARTERIAL BLOOD GAS WAS CANCELLED, 08/18/2022 15:29 SAMPLE UNSUITABLE FORTESTING. SYRINGE NOT PROPERLY CAPPED AND EXPOSED TO AIR.. Performed By: #### B LGA2 ####[id number] [place] [address] PEAK PRESSURE Canceled Normal [facility] Comment on above: Order Comment: TEST ARTERIAL BLOOD GAS WAS CANCELLED, 08/18/2022 15:29 SAMPLE UNSUITABLE FORTESTING. SYRINGE NOT PROPERLY CAPPED AND EXPOSED TO AIR.. Performed By: #### B LGA2 ####[id number] [id number] PEEP CMH2O Canceled Normal [facility] Comment on above: Order Comment: TEST ARTERIAL BLOOD GAS WAS CANCELLED, 08/18/2022 15:29 SAMPLE UNSUITABLE FORTESTING. SYRINGE NOT PROPERLY CAPPED AND EXPOSED TO AIR.. Performed By: #### B LGA2 ####[id number] [place] [address] pH Canceled Normal [facility] Comment on above: Order Comment: TEST ARTERIAL BLOOD GAS WAS CANCELLED, 08/18/2022 15:29 SAMPLE UNSUITABLE FORTESTING. SYRINGE NOT PROPERLY CAPPED AND EXPOSED TO AIR.. Performed By: #### B LGA2 ####[id number] [place] [address] PO2 Canceled Normal [facility] Comment on above: Order Comment: TEST ARTERIAL BLOOD GAS WAS CANCELLED, 08/18/2022 15:29 SAMPLE UNSUITABLE FORTESTING. SYRINGE NOT PROPERLY CAPPED AND EXPOSED TO AIR.. Performed By: #### B LGA2 ####[id number] 2536406 PRESSURE SUPPORT Canceled Normal [facility] Comment on above: Order Comment: TEST ARTERIAL BLOOD GAS WAS CANCELLED, 08/18/2022 15:29 SAMPLE UNSUITABLE FORTESTING. SYRINGE NOT PROPERLY CAPPED AND EXPOSED TO AIR.. Performed By: #### B LGA2 ####[id number] 2536406 SO2 Canceled Normal [facility] Comment on above: Order Comment: TEST ARTERIAL BLOOD GAS WAS CANCELLED, 08/18/2022 15:29 SAMPLE UNSUITABLE FORTESTING. SYRINGE NOT PROPERLY CAPPED AND EXPOSED TO AIR.. Performed By: #### B LGA2 ####[id number] [id number] SPONTANEOUS TIDAL VOLUME Canceled Normal [facility] Comment on above: Order Comment: TEST ARTERIAL BLOOD GAS WAS CANCELLED, 08/18/2022 15:29 SAMPLE UNSUITABLE FORTESTING. SYRINGE NOT PROPERLY CAPPED AND EXPOSED TO AIR.. Performed By: #### B LGA2 ####[id number] [place] [address] TIDAL VOLUME Canceled Normal [facility] Comment on above: Order Comment: TEST ARTERIAL BLOOD GAS WAS CANCELLED, 08/18/2022 15:29 SAMPLE UNSUITABLE FORTESTING. SYRINGE NOT PROPERLY CAPPED AND EXPOSED TO AIR.. Performed By: #### B LGA2 ####[id number] [place] [address] TOTAL MINUTE VOLUME Canceled Normal [facility] Comment on above: Order Comment: TEST ARTERIAL BLOOD GAS WAS CANCELLED, 08/18/2022 15:29 SAMPLE UNSUITABLE FORTESTING. SYRINGE NOT PROPERLY CAPPED AND EXPOSED TO AIR.. Performed By: #### B LGA2 ####[id number] [id number] VENTILATOR MODE Canceled Normal [facility] Comment on above: Order Comment: TEST ARTERIAL BLOOD GAS WAS CANCELLED, 08/18/2022 15:29 SAMPLE UNSUITABLE FORTESTING. SYRINGE NOT PROPERLY CAPPED AND EXPOSED TO AIR.. Performed By: #### B LGA2 ####[id number] [id number] VENTILATOR RATE Canceled Normal [facility] Comment on above: Order Comment: TEST ARTERIAL BLOOD GAS WAS CANCELLED, 08/18/2022 15:29 SAMPLE UNSUITABLE FORTESTING. SYRINGE NOT PROPERLY CAPPED AND EXPOSED TO AIR.. Performed By: #### B LGA2 ####[id number] [place] [address] ARTERIAL FULL PANELon 2022 Anion gap [Moles/Vol] 21 mmol/L Normal 10 - 25 [facility] Comment on above: Order Comment: PHART LACTA LAURA KISS RB, 08/18/2022 20:50 Performed By: #### A FPA4 ####[id number] [place] [address] BASE EXCESS-BLOOD -9.5 mmol/L Low -2.0 - 3.0 [facility] Comment on above: Order Comment: PHART LACTA LAURA KISS RB, 08/18/2022 20:50 Performed By: #### A FPA4 ####[id number] [place] [address] BICARB, CALCULATED 17.6 mmol/L Low 22.0 - 26.0 [facility] Comment on above: Order Comment: PHART LACTA LAURA KISS RB, 08/18/2022 20:50 Performed By: #### A FPA4 ####[id number] [place] [address] CALCIUM,IONIZED 1.12 mmol/L Normal 1.10 - 1.33 [facility] Comment on above: Order Comment: PHART LACTA LAURA KISS RB, 08/18/2022 20:50 Performed By: #### A FPA4 ####[id number] [place] [address] Chloride [Moles/Vol] 103 mmol/L Normal 98 - 107 [facility] Comment on above: Order Comment: PHART LACTA LAURA KISS RB, 08/18/2022 20:50 Performed By: #### A FPA4 ####[id number] [place] [address] Glucose [Mass/Vol] 307 mg/dL High 74 - 99 [facility] Comment on above: Order Comment: PHART LACTA LAURA KISS RB, 08/18/2022 20:50 Performed By: #### A FPA4 ####[id number] [place] [address] Hematocrit (Bld) [Volume fraction] 36.0 % Low 41.0 - 52.0 [facility] Comment on above: Order Comment: PHART LACTA LAURA KISS RB, 08/18/2022 20:50 Performed By: #### A FPA4 ####[id number] 2536406 Hemoglobin (Bld) [Mass/Vol] 11.9 g/dL Low 13.5 - 17.5 [facility] Comment on above: Order Comment: PHART LACTA LAURA KISS RB, 08/18/2022 20:50 Performed By: #### A FPA4 ####[id number] 2536406 Lactate [Moles/Vol] 12.2 mmol/L Critically high 0.4 - 2.0 [facility] Comment on above: Order Comment: PHART LACTA LAURA KISS RB, 08/18/2022 20:50 Result Comment: PHAR T LACTA LAURA KISS RB, 08/18/2022 20:50 Performed By: #### A FPA4 ####[id number] [id number] OXY HGB 96.1 % Normal 94.0 - 98.0 [facility] Comment on above: Order Comment: PHART LACTA LAURA KISS RB, 08/18/2022 20:50 Performed By: #### A FPA4 ####[id number] [place] [address] Oxygen (Bld) [Partial pressure] 124 mm[Hg] High 85 - 95 [facility] Comment on above: Order Comment: PHART LACTA LAURA KISS RB, 08/18/2022 20:50 Performed By: #### A FPA4 ####[id number] [place] [address] PATIENT TEMPERATURE 37.0 degrees C Normal [facility] Comment on above: Order Comment: PHART LACTA LAURA KISS RB, 08/18/2022 20:50 Result Comment: NOTE : PATIENT RESULTS ARE NOT CORRECTED FOR TEMPERATURE. Performed By: #### A FPA4 ####[id number] [place] [address] PCO2 42 mmHg Normal 38 - 42 [facility] Comment on above: Order Comment: PHART LACTA LAURA KISS RB, 08/18/2022 20:50 Performed By: #### A FPA4 ####[id number] [place] [address] pH (Bld) 7.23 [pH] Critically low 7.38 - 7.42 [facility] Comment on above: Order Comment: PHART LACTA LAURA KISS RB, 08/18/2022 20:50 Result Comment: PHAR T LACTA LAURA KISS RB, 08/18/2022 20:50 Performed By: #### A FPA4 ####[id number] [place] [address] Potassium [Moles/Vol] 4.0 mmol/L Normal 3.5 - 5.3 [facility] Comment on above: Order Comment: PHART LACTA LAURA KISS RB, 08/18/2022 20:50 Performed By: #### A FPA4 ####[id number] [place] [address] SO2 98 % Normal 94 - 100 [facility] Comment on above: Order Comment: PHART LACTA LAURA KISS RB, 08/18/2022 20:50 Performed By: #### A FPA4 ####[id number] [place] [address] Sodium [Moles/Vol] 138 mmol/L Normal 136 - 145 [facility] Comment on above: Order Comment: PHART LACTA LAURA KISS RB, 08/18/2022 20:50 Performed By: #### A FPA4 ####[id number] [place] [address] Anion gap [Moles/Vol] 20 mmol/L Normal 10 - 25 [facility] Comment on above: Order Comment: RB TO CHANCE HOPE, 08/18/2022 19:21 Performed By: #### A FPA4 ####[id number] [place] [address] BASE EXCESS-BLOOD -10.1 mmol/L Low -2.0 - 3.0 [facility] Comment on above: Order Comment: RB TO CHANCE HOPE, 08/18/2022 19:21 Performed By: #### A FPA4 ####[id number] [place] [address] BICARB, CALCULATED 17.2 mmol/L Low 22.0 - 26.0 [facility] Comment on above: Order Comment: RB TO CHANCE HOPE, 08/18/2022 19:21 Performed By: #### A FPA4 ####[id number] [id number] CALCIUM,IONIZED 1.11 mmol/L Normal 1.10 - 1.33 [facility] Comment on above: Order Comment: RB TO CHANCE HOPE, 08/18/2022 19:21 Performed By: #### A FPA4 ####[id number] [place] [address] Chloride [Moles/Vol] 102 mmol/L Normal 98 - 107 [facility] Comment on above: Order Comment: RB TO CHANCE HOPE, 08/18/2022 19:21 Performed By: #### A FPA4 ####[id number] [place] [address] Glucose [Mass/Vol] 255 mg/dL High 74 - 99 [facility] Comment on above: Order Comment: RB TO CHANCE HOPE, 08/18/2022 19:21 Performed By: #### A FPA4 ####[id number] [place] [address] Hematocrit (Bld) [Volume fraction] 37.0 % Low 41.0 - 52.0 [facility] Comment on above: Order Comment: RB TO CHANCE HOPE, 08/18/2022 19:21 Performed By: #### A FPA4 ####[id number] [place] [address] Hemoglobin (Bld) [Mass/Vol] 12.3 g/dL Low 13.5 - 17.5 [facility] Comment on above: Order Comment: RB TO CHANCE HOPE, 08/18/2022 19:21 Performed By: #### A FPA4 ####[id number] [place] [address] Lactate [Moles/Vol] 11.3 mmol/L Critically high 0.4 - 2.0 [facility] Comment on above: Order Comment: RB TO CHANCE HOPE, 08/18/2022 19:21 Result Comment: RB T O CHANCE HOPE, 08/18/2022 19:21 Performed By: #### A FPA4 ####[id number] [place] [address] OXY HGB 96.1 % Normal 94.0 - 98.0 [facility] Comment on above: Order Comment: RB TO CHANCE HOPE, 08/18/2022 19:21 Performed By: #### A FPA4 ####[id number] [place] [address] Oxygen (Bld) [Partial pressure] 98 mm[Hg] High 85 - 95 [facility] Comment on above: Order Comment: RB TO CHANCE HOPE, 08/18/2022 19:21 Performed By: #### A FPA4 ####[id number] [place] [address] PATIENT TEMPERATURE 37.0 degrees C Normal [facility] Comment on above: Order Comment: RB TO CHANCE HOPE, 08/18/2022 19:21 Result Comment: NOTE : PATIENT RESULTS ARE NOT CORRECTED FOR TEMPERATURE. Performed By: #### A FPA4 ####[id number] [place] [address] PCO2 42 mmHg Normal 38 - 42 [facility] Comment on above: Order Comment: RB TO CHANCE HOPE, 08/18/2022 19:21 Performed By: #### A FPA4 ####[id number] [place] [address] pH (Bld) 7.22 [pH] Critically low 7.38 - 7.42 [facility] Comment on above: Order Comment: RB TO CHANCE CONTRERASTINE, 08/18/2022 19:21 Result Comment: RB T O CHANCE CONTRERASTINE, 08/18/2022 19:21 Performed By: #### A FPA4 ####[id number] [place] [address] Potassium [Moles/Vol] 3.6 mmol/L Normal 3.5 - 5.3 [facility] Comment on above: Order Comment: RB TO CHANCE CONTRERASTINE, 08/18/2022 19:21 Performed By: #### A FPA4 ####[id number] [place] [address] SO2 99 % Normal 94 - 100 [facility] Comment on above: Order Comment: RB TO CHANCE CONTRERASTINE, 08/18/2022 19:21 Performed By: #### A FPA4 ####[id number] [place] [address] Sodium [Moles/Vol] 136 mmol/L Normal 136 - 145 [facility] Comment on above: Order Comment: RB TO CHANCE CONTRERASTINE, 08/18/2022 19:21 Performed By: #### A FPA4 ####[id number] [id number] Anion gap [Moles/Vol] 20 mmol/L Normal 10 - 25 [facility] Comment on above: Order Comment: RB TO LISSET GAN, 08/18/2022 17:37RB TO LISSET MALIK, 08/18/2022 17:37 Performed By: #### A FPA4 ####[id number] [place] [address] BASE EXCESS-BLOOD -8.9 mmol/L Low -2.0 - 3.0 [facility] Comment on above: Order Comment: RB TO LISSET MALIK, 08/18/2022 17:37RB TO LISSET MALIK, 08/18/2022 17:37 Performed By: #### A FPA4 ####[id number] [place] [address] BICARB, CALCULATED 18.4 mmol/L Low 22.0 - 26.0 [facility] Comment on above: Order Comment: RB TO LISSET MALIK, 08/18/2022 17:37RB TO LISSET MALIK, 08/18/2022 17:37 Performed By: #### A FPA4 ####[id number] [place] [address] CALCIUM,IONIZED 1.18 mmol/L Normal 1.10 - 1.33 [facility] Comment on above: Order Comment: RB TO LISSET MALIK, 08/18/2022 17:37RB TO LISSET MALIK, 08/18/2022 17:37 Performed By: #### A FPA4 ####[id number] [place] [address] Chloride [Moles/Vol] 104 mmol/L Normal 98 - 107 [facility] Comment on above: Order Comment: RB TO LISSET MALIK, 08/18/2022 17:37RB TO LISSET MALIK, 08/18/2022 17:37 Performed By: #### A FPA4 ####[id number] [place] [address] Glucose [Mass/Vol] 213 mg/dL High 74 - 99 [facility] Comment on above: Order Comment: RB TO LISSET MALIK, 08/18/2022 17:37RB TO LISSET MALIK, 08/18/2022 17:37 Performed By: #### A FPA4 ####[id number] [place] [address] Hematocrit (Bld) [Volume fraction] 37.0 % Low 41.0 - 52.0 [facility] Comment on above: Order Comment: RB TO LISSET MALIK, 08/18/2022 17:37RB TO LISSET MALIK, 08/18/2022 17:37 Performed By: #### A FPA4 ####[id number] [place] [address] Hemoglobin (Bld) [Mass/Vol] 12.3 g/dL Low 13.5 - 17.5 [facility] Comment on above: Order Comment: RB TO LISSET MALIK, 08/18/2022 17:37RB TO LISSET MALIK, 08/18/2022 17:37 Performed By: #### A FPA4 ####[id number] [place] [address] Lactate [Moles/Vol] 10.4 mmol/L Critically high 0.4 - 2.0 [facility] Comment on above: Order Comment: RB TO LISSET MALIK, 08/18/2022 17:37RB TO LISSET MALIK, 08/18/2022 17:37 Result Comment: RB T O LISSET MALIK, 08/18/2022 17:37RB TO LISSET MALIK, 08/18/2022 17:37 Performed By: #### A FPA4 ####[id number] [id number] OXY HGB 96.6 % Normal 94.0 - 98.0 [facility] Comment on above: Order Comment: RB TO LISSET MALIK, 08/18/2022 17:37RB TO LISSET MALIK, 08/18/2022 17:37 Performed By: #### A FPA4 ####[id number] [id number] Oxygen (Bld) [Partial pressure] 104 mm[Hg] High 85 - 95 [facility] Comment on above: Order Comment: RB TO LISSET MALIK, 08/18/2022 17:37RB TO LISSET MALIK, 08/18/2022 17:37 Performed By: #### A FPA4 ####[id number] [id number] PATIENT TEMPERATURE 37.0 degrees C Normal [facility] Comment on above: Order Comment: RB TO LISSET MALIK, 08/18/2022 17:37RB TO LISSET MALIK, 08/18/2022 17:37 Result Comment: NOTE : PATIENT RESULTS ARE NOT CORRECTED FOR TEMPERATURE. Performed By: #### A FPA4 ####[id number] [place] [address] PCO2 44 mmHg High 38 - 42 [facility] Comment on above: Order Comment: RB TO LISSET MALIK, 08/18/2022 17:37RB TO LISSET MALIK, 08/18/2022 17:37 Performed By: #### A FPA4 ####[id number] [place] [address] pH (Bld) 7.23 [pH] Critically low 7.38 - 7.42 [facility] Comment on above: Order Comment: RB TO LISSET MALIK, 08/18/2022 17:37RB TO LISSET MALIK, 08/18/2022 17:37 Result Comment: RB T O LISSET MALIK, 08/18/2022 17:37RB TO LISSET MALIK, 08/18/2022 17:37 Performed By: #### A FPA4 ####[id number] [place] [address] Potassium [Moles/Vol] 3.6 mmol/L Normal 3.5 - 5.3 [facility] Comment on above: Order Comment: RB TO LISSET MALIK, 08/18/2022 17:37RB TO LISSET MALIK, 08/18/2022 17:37 Performed By: #### A FPA4 ####[id number] [place] [address] SO2 99 % Normal 94 - 100 [facility] Comment on above: Order Comment: RB TO LISSET MALIK, 08/18/2022 17:37RB TO LISSET MALIK, 08/18/2022 17:37 Performed By: #### A FPA4 ####[id number] [place] [address] Sodium [Moles/Vol] 139 mmol/L Normal 136 - 145 [facility] Comment on above: Order Comment: RB TO LISSET MALIK, 08/18/2022 17:37RB TO LISSET MALIK, 08/18/2022 17:37 Performed By: #### A FPA4 ####[id number] [place] [address] Anion gap [Moles/Vol] 18 mmol/L Normal 10 - 25 [facility] Comment on above: Performed By: #### A FPA4 ####[id number] [place] [address] BASE EXCESS-BLOOD -7.4 mmol/L Low -2.0 - 3.0 [facility] Comment on above: Performed By: #### A FPA4 ####[id number] [place] [address] BICARB, CALCULATED 20.5 mmol/L Low 22.0 - 26.0 [facility] Comment on above: Performed By: #### A FPA4 ####[id number] [place] [address] CALCIUM,IONIZED 1.14 mmol/L Normal 1.10 - 1.33 [facility] Comment on above: Performed By: #### A FPA4 ####[id number] [place] [address] Chloride [Moles/Vol] 104 mmol/L Normal 98 - 107 [facility] Comment on above: Performed By: #### A FPA4 ####[id number] [place] [address] Glucose [Mass/Vol] 190 mg/dL High 74 - 99 [facility] Comment on above: Performed By: #### A FPA4 ####[id number] [place] [address] Hematocrit (Bld) [Volume fraction] 39.0 % Low 41.0 - 52.0 [facility] Comment on above: Performed By: #### A FPA4 ####[id number] [place] [address] Hemoglobin (Bld) [Mass/Vol] 13.1 g/dL Low 13.5 - 17.5 [facility] Comment on above: Performed By: #### A FPA4 ####[id number] [place] [address] Lactate [Moles/Vol] 9.3 mmol/L Critically high 0.4 - 2.0 [facility] Comment on above: Performed By: #### A FPA4 ####[id number] [place] [address] OXY HGB 93.8 % Low 94.0 - 98.0 [facility] Comment on above: Performed By: #### A FPA4 ####[id number] [place] [address] Oxygen (Bld) [Partial pressure] 80 mm[Hg] Low 85 - 95 [facility] Comment on above: Performed By: #### A FPA4 ####[id number] [place] [address] PATIENT TEMPERATURE 37.0 degrees C Normal [facility] Comment on above: Result Comment: NOTE : PATIENT RESULTS ARE NOT CORRECTED FOR TEMPERATURE. Performed By: #### A FPA4 ####[id number] [place] [address] PCO2 50 mmHg High 38 - 42 [facility] Comment on above: Performed By: #### A FPA4 ####[id number] [place] [address] pH (Bld) 7.22 [pH] Critically low 7.38 - 7.42 [facility] Comment on above: Performed By: #### A FPA4 ####[id number] [place] [address] Potassium [Moles/Vol] 3.7 mmol/L Normal 3.5 - 5.3 [facility] Comment on above: Performed By: #### A FPA4 ####[id number] [place] [address] SO2 96 % Normal 94 - 100 [facility] Comment on above: Performed By: #### A FPA4 ####[id number] [place] [address] Sodium [Moles/Vol] 139 mmol/L Normal 136 - 145 [facility] Comment on above: Performed By: #### A FPA4 ####[id number] [place] [address] Anion gap [Moles/Vol] 17 mmol/L Normal 10 - 25 [facility] Comment on above: Order Comment: RB TO JEREMY ARRIAZA, 08/18/2022 14:18 Performed By: #### A FPA4 ####[id number] [place] [address] BASE EXCESS-BLOOD -5.4 mmol/L Low -2.0 - 3.0 [facility] Comment on above: Order Comment: RB TO JEREMY ARRIAZA, 08/18/2022 14:18 Performed By: #### A FPA4 ####[id number] [place] [address] BICARB, CALCULATED 23.2 mmol/L Normal 22.0 - 26.0 [facility] Comment on above: Order Comment: RB TO JEREMY ARRIAZA, 08/18/2022 14:18 Performed By: #### A FPA4 ####[id number] [place] [address] CALCIUM,IONIZED 1.16 mmol/L Normal 1.10 - 1.33 [facility] Comment on above: Order Comment: RB TO JEREMY ARRIAZA, 08/18/2022 14:18 Performed By: #### A FPA4 ####[id number] [place] [address] Chloride [Moles/Vol] 103 mmol/L Normal 98 - 107 [facility] Comment on above: Order Comment: RB TO JEREMY ARRIAZA, 08/18/2022 14:18 Performed By: #### A FPA4 ####[id number] [place] [address] Glucose [Mass/Vol] 191 mg/dL High 74 - 99 [facility] Comment on above: Order Comment: RB TO JEREMY SOFIYA, 08/18/2022 14:18 Performed By: #### A FPA4 ####[id number] [place] [address] Hematocrit (Bld) [Volume fraction] 40.0 % Low 41.0 - 52.0 [facility] Comment on above: Order Comment: RB TO JEREMY ARRIAZA, 08/18/2022 14:18 Performed By: #### A FPA4 ####[id number] [place] [address] Hemoglobin (Bld) [Mass/Vol] 13.3 g/dL Low 13.5 - 17.5 [facility] Comment on above: Order Comment: RB TO JEREMY SOFIYA, 08/18/2022 14:18 Performed By: #### A FPA4 ####[id number] [place] [address] Lactate [Moles/Vol] 7.6 mmol/L Critically high 0.4 - 2.0 [facility] Comment on above: Order Comment: RB TO JEREMY SOFIYA, 08/18/2022 14:18 Result Comment: RB T O JEREMY SOFIYA, 08/18/2022 14:18 Performed By: #### A FPA4 ####[id number] [place] [address] OXY HGB 93.7 % Low 94.0 - 98.0 [facility] Comment on above: Order Comment: RB TO JEREMY SOFIYA, 08/18/2022 14:18 Performed By: #### A FPA4 ####[id number] [place] [address] Oxygen (Bld) [Partial pressure] 84 mm[Hg] Low 85 - 95 [facility] Comment on above: Order Comment: RB TO JEREMY SOFIYA, 08/18/2022 14:18 Performed By: #### A FPA4 ####[id number] [place] [address] PATIENT TEMPERATURE 37.0 degrees C Normal [facility] Comment on above: Order Comment: RB TO JEREMY SOFIYA, 08/18/2022 14:18 Result Comment: NOTE : PATIENT RESULTS ARE NOT CORRECTED FOR TEMPERATURE. Performed By: #### A FPA4 ####[id number] [place] [address] PCO2 58 mmHg High 38 - 42 [facility] Comment on above: Order Comment: RB TO JEREMY SOFIYA, 08/18/2022 14:18 Performed By: #### A FPA4 ####[id number] [place] [address] pH (Bld) 7.21 [pH] Critically low 7.38 - 7.42 [facility] Comment on above: Order Comment: RB TO JEREMY SOFIYA, 08/18/2022 14:18 Result Comment: RB T O JEREMY SOFIYA, 08/18/2022 14:18 Performed By: #### A FPA4 ####[id number] [place] [address] Potassium [Moles/Vol] 4.0 mmol/L Normal 3.5 - 5.3 [facility] Comment on above: Order Comment: RB TO JEREMY SOFIYA, 08/18/2022 14:18 Performed By: #### A FPA4 ####[id number] [place] [address] SO2 96 % Normal 94 - 100 [facility] Comment on above: Order Comment: RB TO JEREMY ARRIAZA, 08/18/2022 14:18 Performed By: #### A FPA4 ####[id number] [place] [address] Sodium [Moles/Vol] 139 mmol/L Normal 136 - 145 [facility] Comment on above: Order Comment: RB TO JEREMY ARRIAZA, 08/18/2022 14:18 Performed By: #### A FPA4 ####[id number] [place] [address] Anion gap [Moles/Vol] 16 mmol/L Normal 10 - 25 [facility] Comment on above: Performed By: #### A FPA4 ####[id number] [place] [address] BASE EXCESS-BLOOD -5.5 mmol/L Low -2.0 - 3.0 [facility] Comment on above: Performed By: #### A FPA4 ####[id number] [place] [address] BICARB, CALCULATED 22.3 mmol/L Normal 22.0 - 26.0 [facility] Comment on above: Performed By: #### A FPA4 ####[id number] [place] [address] CALCIUM,IONIZED 1.10 mmol/L Normal 1.10 - 1.33 [facility] Comment on above: Performed By: #### A FPA4 ####[id number] [place] [address] Chloride [Moles/Vol] 104 mmol/L Normal 98 - 107 [facility] Comment on above: Performed By: #### A FPA4 ####[id number] [place] [address] FIO2 80 % Normal [facility] Comment on above: Performed By: #### A FPA4 ####[id number] [place] [address] Glucose [Mass/Vol] 170 mg/dL High 74 - 99 [facility] Comment on above: Performed By: #### A FPA4 ####[id number] [place] [address] Hematocrit (Bld) [Volume fraction] 40.0 % Low 41.0 - 52.0 [facility] Comment on above: Performed By: #### A FPA4 ####[id number] [place] [address] Lactate [Moles/Vol] 6.0 mmol/L Critically high 0.4 - 2.0 [facility] Comment on above: Performed By: #### A FPA4 ####[id number] [place] [address] Oxygen (Bld) [Partial pressure] 197 mm[Hg] High 85 - 95 [facility] Comment on above: Performed By: #### A FPA4 ####[id number] [place] [address] PATIENT TEMPERATURE 37.0 degrees C Normal [facility] Comment on above: Result Comment: NOTE : PATIENT RESULTS ARE NOT CORRECTED FOR TEMPERATURE. Performed By: #### A FPA4 ####[id number] [place] [address] PCO2 52 mmHg High 38 - 42 [facility] Comment on above: Performed By: #### A FPA4 ####[id number] [place] [address] pH (Bld) 7.24 [pH] Critically low 7.38 - 7.42 [facility] Comment on above: Performed By: #### A FPA4 ####[id number] [place] [address] Potassium [Moles/Vol] 3.9 mmol/L Normal 3.5 - 5.3 [facility] Comment on above: Performed By: #### A FPA4 ####[id number] [place] [address] SO2 99 % Normal 94 - 100 [facility] Comment on above: Performed By: #### A FPA4 ####[id number] [place] [address] Sodium [Moles/Vol] 138 mmol/L Normal 136 - 145 [facility] Comment on above: Performed By: #### A FPA4 ####[id number] [place] [address] Anion gap [Moles/Vol] 13 mmol/L Normal 10 - 25 [facility] Comment on above: Performed By: #### A FPA4 ####[id number] [place] [address] BASE EXCESS-BLOOD -3.6 mmol/L Low -2.0 - 3.0 [facility] Comment on above: Performed By: #### A FPA4 ####[id number] [place] [address] BICARB, CALCULATED 23.5 mmol/L Normal 22.0 - 26.0 [facility] Comment on above: Performed By: #### A FPA4 ####[id number] [place] [address] CALCIUM,IONIZED 1.10 mmol/L Normal 1.10 - 1.33 [facility] Comment on above: Performed By: #### A FPA4 ####[id number] [place] [address] Chloride [Moles/Vol] 104 mmol/L Normal 98 - 107 [facility] Comment on above: Performed By: #### A FPA4 ####[id number] [place] [address] FIO2 80 % Normal [facility] Comment on above: Performed By: #### A FPA4 ####[id number] [place] [address] Glucose [Mass/Vol] 161 mg/dL High 74 - 99 [facility] Comment on above: Performed By: #### A FPA4 ####[id number] [place] [address] Hematocrit (Bld) [Volume fraction] 38.0 % Low 41.0 - 52.0 [facility] Comment on above: Performed By: #### A FPA4 ####[id number] [place] [address] Lactate [Moles/Vol] 4.7 mmol/L Critically high 0.4 - 2.0 [facility] Comment on above: Performed By: #### A FPA4 ####[id number] [place] [address] Oxygen (Bld) [Partial pressure] 266 mm[Hg] High 85 - 95 [facility] Comment on above: Performed By: #### A FPA4 ####[id number] [place] [address] PATIENT TEMPERATURE 37.0 degrees C Normal [facility] Comment on above: Result Comment: NOTE : PATIENT RESULTS ARE NOT CORRECTED FOR TEMPERATURE. Performed By: #### A FPA4 ####[id number] [place] [address] PCO2 50 mmHg High 38 - 42 [facility] Comment on above: Performed By: #### A FPA4 ####[id number] [place] [address] pH (Bld) 7.28 [pH] Low 7.38 - 7.42 [facility] Comment on above: Performed By: #### A FPA4 ####[id number] [place] [address] Potassium [Moles/Vol] 3.9 mmol/L Normal 3.5 - 5.3 [facility] Comment on above: Performed By: #### A FPA4 ####[id number] [place] [address] SO2 100 % Normal 94 - 100 [facility] Comment on above: Performed By: #### A FPA4 ####[id number] [place] [address] Sodium [Moles/Vol] 137 mmol/L Normal 136 - 145 [facility] Comment on above: Performed By: #### A FPA4 ####[id number] [place] [address] Anion gap [Moles/Vol] 12 mmol/L Normal 10 - 25 [facility] Comment on above: Performed By: #### A FPA4 ####[id number] [place] [address] BASE EXCESS-BLOOD -1.7 mmol/L Normal -2.0 - 3.0 [facility] Comment on above: Performed By: #### A FPA4 ####[id number] [place] [address] BICARB, CALCULATED 24.7 mmol/L Normal 22.0 - 26.0 [facility] Comment on above: Performed By: #### A FPA4 ####[id number] [place] [address] CALCIUM,IONIZED 1.17 mmol/L Normal 1.10 - 1.33 [facility] Comment on above: Performed By: #### A FPA4 ####[id number] [place] [address] Chloride [Moles/Vol] 104 mmol/L Normal 98 - 107 [facility] Comment on above: Performed By: #### A FPA4 ####[id number] [place] [address] FIO2 80 % Normal [facility] Comment on above: Performed By: #### A FPA4 ####[id number] [place] [address] Glucose [Mass/Vol] 151 mg/dL High 74 - 99 [facility] Comment on above: Performed By: #### A FPA4 ####[id number] [place] [address] Hematocrit (Bld) [Volume fraction] 36.0 % Low 41.0 - 52.0 [facility] Comment on above: Performed By: #### A FPA4 ####[id number] [place] [address] Lactate [Moles/Vol] 3.8 mmol/L High 0.4 - 2.0 [facility] Comment on above: Performed By: #### A FPA4 ####[id number] [place] [address] Oxygen (Bld) [Partial pressure] 264 mm[Hg] High 85 - 95 [facility] Comment on above: Performed By: #### A FPA4 ####[id number] [place] [address] PATIENT TEMPERATURE 37.0 degrees C Normal [facility] Comment on above: Result Comment: NOTE : PATIENT RESULTS ARE NOT CORRECTED FOR TEMPERATURE. Performed By: #### A FPA4 ####[id number] [place] [address] PCO2 48 mmHg High 38 - 42 [facility] Comment on above: Performed By: #### A FPA4 ####[id number] [place] [address] pH (Bld) 7.32 [pH] Low 7.38 - 7.42 [facility] Comment on above: Performed By: #### A FPA4 ####[id number] [place] [address] Potassium [Moles/Vol] 4.0 mmol/L Normal 3.5 - 5.3 [facility] Comment on above: Performed By: #### A FPA4 ####[id number] [place] [address] SO2 100 % Normal 94 - 100 [facility] Comment on above: Performed By: #### A FPA4 ####[id number] [place] [address] Sodium [Moles/Vol] 137 mmol/L Normal 136 - 145 [facility] Comment on above: Performed By: #### A FPA4 ####[id number] [place] [address] Anion gap [Moles/Vol] 10 mmol/L Normal 10 - 25 [facility] Comment on above: Performed By: #### A FPA4 ####[id number] [place] [address] BASE EXCESS-BLOOD 0.3 mmol/L Normal -2.0 - 3.0 [facility] Comment on above: Performed By: #### A FPA4 ####[id number] [place] [address] BICARB, CALCULATED 25.4 mmol/L Normal 22.0 - 26.0 [facility] Comment on above: Performed By: #### A FPA4 ####[id number] [place] [address] CALCIUM,IONIZED 1.00 mmol/L Low 1.10 - 1.33 [facility] Comment on above: Performed By: #### A FPA4 ####[id number] [place] [address] Chloride [Moles/Vol] 106 mmol/L Normal 98 - 107 [facility] Comment on above: Performed By: #### A FPA4 ####[id number] [place] [address] FIO2 100 % Normal [facility] Comment on above: Performed By: #### A FPA4 ####[id number] [place] [address] Glucose [Mass/Vol] 140 mg/dL High 74 - 99 [facility] Comment on above: Performed By: #### A FPA4 ####[id number] [place] [address] HCT,CALCULATED SEE COMMENT Normal 41.0 - 52.0 [facility] Comment on above: Result Comment: NOT CALCULATED Performed By: #### A FPA4 ####[id number] [place] [address] HGB SEE COMMENT Normal 13.5 - 17.5 [facility] Comment on above: Result Comment: NOT CALCULATED Performed By: #### A FPA4 ####[id number] [place] [address] Performed By: #### C OXA1 ####[id number] [place] [address] Lactate [Moles/Vol] 2.3 mmol/L High 0.4 - 2.0 [facility] Comment on above: Performed By: #### A FPA4 ####[id number] [place] [address] OXY HGB SEE COMMENT Normal 94.0 - 98.0 [facility] Comment on above: Result Comment: NOT CALCULATED Performed By: #### A FPA4 ####[id number] [place] [address] Performed By: #### C OXA1 ####[id number] [place] [address] Oxygen (Bld) [Partial pressure] 205 mm[Hg] High 85 - 95 [facility] Comment on above: Performed By: #### A FPA4 ####[id number] [place] [address] PATIENT TEMPERATURE 37.0 degrees C Normal [facility] Comment on above: Result Comment: NOTE : PATIENT RESULTS ARE NOT CORRECTED FOR TEMPERATURE. Performed By: #### A FPA4 ####[id number] [place] [address] PCO2 42 mmHg Normal 38 - 42 [facility] Comment on above: Performed By: #### A FPA4 ####[id number] [place] [address] pH (Bld) 7.39 [pH] Normal 7.38 - 7.42 [facility] Comment on above: Performed By: #### A FPA4 ####[id number] [place] [address] Potassium [Moles/Vol] 5.2 mmol/L Normal 3.5 - 5.3 [facility] Comment on above: Performed By: #### A FPA4 ####[id number] [place] [address] SO2 SEE COMMENT Normal 94 - 100 [facility] Comment on above: Result Comment: NOT CALCULATED Performed By: #### A FPA4 ####[id number] [place] [address] Sodium [Moles/Vol] 136 mmol/L Normal 136 - 145 [facility] Comment on above: Performed By: #### A FPA4 ####[id number] [place] [address] Anion gap [Moles/Vol] 9 mmol/L Low 10 - 25 [facility] Comment on above: Performed By: #### A FPA4 ####[id number] [place] [address] BASE EXCESS-BLOOD 1.5 mmol/L Normal -2.0 - 3.0 [facility] Comment on above: Performed By: #### A FPA4 ####[id number] [place] [address] BICARB, CALCULATED 26.6 mmol/L High 22.0 - 26.0 [facility] Comment on above: Performed By: #### A FPA4 ####[id number] [place] [address] CALCIUM,IONIZED 1.06 mmol/L Low 1.10 - 1.33 [facility] Comment on above: Performed By: #### A FPA4 ####[id number] [place] [address] Chloride [Moles/Vol] 102 mmol/L Normal 98 - 107 [facility] Comment on above: Performed By: #### A FPA4 ####[id number] [place] [address] FIO2 100 % Normal [facility] Comment on above: Performed By: #### A FPA4 ####[id number] [place] [address] Glucose [Mass/Vol] 169 mg/dL High 74 - 99 [facility] Comment on above: Performed By: #### A FPA4 ####[id number] [place] [address] Hematocrit (Bld) [Volume fraction] 36.0 % Low 41.0 - 52.0 [facility] Comment on above: Performed By: #### A FPA4 ####[id number] Hemoglobin (Bld) [Mass/Vol] 12.1 g/dL Low 13.5 - 17.5 [facility] Comment on above: Performed By: #### A FPA4 ####[id number] Performed By: #### C OXA1 ####[id number] Lactate [Moles/Vol] 2.1 mmol/L High 0.4 - 2.0 [facility] Comment on above: Performed By: #### A FPA4 ####[id number] OXY HGB 97.4 % Normal 94.0 - 98.0 [facility] Comment on above: Performed By: #### A FPA4 ####[id number] Performed By: #### C OXA1 ####[id number] Oxygen (Bld) [Partial pressure] 319 mm[Hg] High 85 - 95 [facility] Comment on above: Performed By: #### A FPA4 ####[id number] PATIENT TEMPERATURE 37.0 degrees C Normal [facility] Comment on above: Result Comment: NOTE : PATIENT RESULTS ARE NOT CORRECTED FOR TEMPERATURE. Performed By: #### A FPA4 ####[id number] [address] PCO2 43 mmHg High 38 - 42 [facility] Comment on above: Performed By: #### A FPA4 ####[id number] [place] [address] pH (Bld) 7.40 [pH] Normal 7.38 - 7.42 [facility] Comment on above: Performed By: #### A FPA4 ####[id number] [place] [address] Potassium [Moles/Vol] 6.0 mmol/L High 3.5 - 5.3 [facility] Comment on above: Performed By: #### A FPA4 ####[id number] [place] [address] SO2 100 % Normal 94 - 100 [facility] Comment on above: Performed By: #### A FPA4 ####[id number] [place] [address] Sodium [Moles/Vol] 132 mmol/L Low 136 - 145 [facility] Comment on above: Performed By: #### A FPA4 ####[id number] [place] [address] Anion gap [Moles/Vol] 10 mmol/L Normal 10 - 25 [facility] Comment on above: Performed By: #### A FPA4 ####[id number] [place] [address] BASE EXCESS-BLOOD 1.1 mmol/L Normal -2.0 - 3.0 [facility] Comment on above: Performed By: #### A FPA4 ####[id number] [place] [address] BICARB, CALCULATED 27.1 mmol/L High 22.0 - 26.0 [facility] Comment on above: Performed By: #### A FPA4 ####[id number] [place] [address] CALCIUM,IONIZED 1.09 mmol/L Low 1.10 - 1.33 [facility] Comment on above: Performed By: #### A FPA4 ####[id number] [place] [address] Chloride [Moles/Vol] 101 mmol/L Normal 98 - 107 [facility] Comment on above: Performed By: #### A FPA4 ####[id number] [place] [address] FIO2 90 % Normal [facility] Comment on above: Performed By: #### A FPA4 ####[id number] [place] [address] Glucose [Mass/Vol] 169 mg/dL High 74 - 99 [facility] Comment on above: Performed By: #### A FPA4 ####[id number] [place] [address] Hematocrit (Bld) [Volume fraction] 35.0 % Low 41.0 - 52.0 [facility] Comment on above: Performed By: #### A FPA4 ####[id number] [place] [address] Hemoglobin (Bld) [Mass/Vol] 11.6 g/dL Low 13.5 - 17.5 [facility] Comment on above: Performed By: #### A FPA4 ####[id number] [place] [address] Performed By: #### C OXA1 ####[id number] [place] [address] Lactate [Moles/Vol] 1.8 mmol/L Normal 0.4 - 2.0 [facility] Comment on above: Performed By: #### A FPA4 ####[id number] [place] [address] OXY HGB 96.7 % Normal 94.0 - 98.0 [facility] Comment on above: Performed By: #### A FPA4 ####[id number] [place] [address] Performed By: #### C OXA1 ####[id number] [place] [address] Oxygen (Bld) [Partial pressure] 176 mm[Hg] High 85 - 95 [facility] Comment on above: Performed By: #### A FPA4 ####[id number] [place] [address] PATIENT TEMPERATURE 37.0 degrees C Normal [facility] Comment on above: Result Comment: NOTE : PATIENT RESULTS ARE NOT CORRECTED FOR TEMPERATURE. Performed By: #### A FPA4 ####[id number] [place] [address] PCO2 48 mmHg High 38 - 42 [facility] Comment on above: Performed By: #### A FPA4 ####[id number] [place] [address] pH (Bld) 7.36 [pH] Low 7.38 - 7.42 [facility] Comment on above: Performed By: #### A FPA4 ####[id number] [place] [address] Potassium [Moles/Vol] 6.3 mmol/L Critically high 3.5 - 5.3 [facility] Comment on above: Performed By: #### A FPA4 ####[id number] [place] [address] SO2 99 % Normal 94 - 100 [facility] Comment on above: Performed By: #### A FPA4 ####[id number] [place] [address] Sodium [Moles/Vol] 132 mmol/L Low 136 - 145 [facility] Comment on above: Performed By: #### A FPA4 ####[id number] [place] [address] Anion gap [Moles/Vol] 9 mmol/L Low 10 - 25 [facility] Comment on above: Performed By: #### A FPA4 ####[id number] [place] [address] BASE EXCESS-BLOOD 3.1 mmol/L High -2.0 - 3.0 [facility] Comment on above: Performed By: #### A FPA4 ####[id number] [place] [address] BICARB, CALCULATED 29.8 mmol/L High 22.0 - 26.0 [facility] Comment on above: Performed By: #### A FPA4 ####[id number] [place] [address] CALCIUM,IONIZED 1.10 mmol/L Normal 1.10 - 1.33 [facility] Comment on above: Performed By: #### A FPA4 ####[id number] [place] [address] Chloride [Moles/Vol] 100 mmol/L Normal 98 - 107 [facility] Comment on above: Performed By: #### A FPA4 ####[id number] [place] [address] FIO2 100 % Normal [facility] Comment on above: Performed By: #### A FPA4 ####[id number] [place] [address] Glucose [Mass/Vol] 174 mg/dL High 74 - 99 [facility] Comment on above: Performed By: #### A FPA4 ####[id number] [place] [address] Hematocrit (Bld) [Volume fraction] 37.0 % Low 41.0 - 52.0 [facility] Comment on above: Performed By: #### A FPA4 ####[id number] [place] [address] Lactate [Moles/Vol] 1.6 mmol/L Normal 0.4 - 2.0 [facility] Comment on above: Performed By: #### A FPA4 ####[id number] [place] [address] Oxygen (Bld) [Partial pressure] 345 mm[Hg] High 85 - 95 [facility] Comment on above: Performed By: #### A FPA4 ####[id number] [place] [address] PATIENT TEMPERATURE 37.0 degrees C Normal [facility] Comment on above: Result Comment: NOTE : PATIENT RESULTS ARE NOT CORRECTED FOR TEMPERATURE. Performed By: #### A FPA4 ####[id number] [place] [address] PCO2 54 mmHg High 38 - 42 [facility] Comment on above: Performed By: #### A FPA4 ####[id number] [place] [address] pH (Bld) 7.35 [pH] Low 7.38 - 7.42 [facility] Comment on above: Performed By: #### A FPA4 ####[id number] [place] [address] Potassium [Moles/Vol] 6.0 mmol/L High 3.5 - 5.3 [facility] Comment on above: Performed By: #### A FPA4 ####[id number] [place] [address] SO2 100 % Normal 94 - 100 [facility] Comment on above: Performed By: #### A FPA4 ####[id number] [place] [address] Sodium [Moles/Vol] 133 mmol/L Low 136 - 145 [facility] Comment on above: Performed By: #### A FPA4 ####[id number] [place] [address] Anion gap [Moles/Vol] 5 mmol/L Low 10 - 25 [facility] Comment on above: Performed By: #### A FPA4 ####[id number] [place] [address] BASE EXCESS-BLOOD 4.6 mmol/L High -2.0 - 3.0 [facility] Comment on above: Performed By: #### A FPA4 ####[id number] [place] [address] BICARB, CALCULATED 31.6 mmol/L High 22.0 - 26.0 [facility] Comment on above: Performed By: #### A FPA4 ####[id number] [place] [address] CALCIUM,IONIZED 1.10 mmol/L Normal 1.10 - 1.33 [facility] Comment on above: Performed By: #### A FPA4 ####[id number] [place] [address] Chloride [Moles/Vol] 101 mmol/L Normal 98 - 107 [facility] Comment on above: Performed By: #### A FPA4 ####[id number] [place] [address] FIO2 100 % Normal [facility] Comment on above: Performed By: #### A FPA4 ####[id number] [place] [address] Glucose [Mass/Vol] 182 mg/dL High 74 - 99 [facility] Comment on above: Performed By: #### A FPA4 ####[id number] [place] [address] HCT,CALCULATED SEE COMMENT Normal 41.0 - 52.0 [facility] Comment on above: Result Comment: NOT CALCULATED Performed By: #### A FPA4 ####[id number] [place] [address] Lactate [Moles/Vol] 1.6 mmol/L Normal 0.4 - 2.0 [facility] Comment on above: Performed By: #### A FPA4 ####[id number] [place] [address] Oxygen (Bld) [Partial pressure] 387 mm[Hg] High 85 - 95 [facility] Comment on above: Performed By: #### A FPA4 ####[id number] [place] [address] PATIENT TEMPERATURE 37.0 degrees C Normal [facility] Comment on above: Result Comment: NOTE : PATIENT RESULTS ARE NOT CORRECTED FOR TEMPERATURE. Performed By: #### A FPA4 ####[id number] [place] [address] PCO2 56 mmHg High 38 - 42 [facility] Comment on above: Performed By: #### A FPA4 ####[id number] [place] [address] pH (Bld) 7.36 [pH] Low 7.38 - 7.42 [facility] Comment on above: Performed By: #### A FPA4 ####[id number] [place] [address] Potassium [Moles/Vol] 6.0 mmol/L High 3.5 - 5.3 [facility] Comment on above: Performed By: #### A FPA4 ####[id number] [place] [address] SO2 SEE COMMENT Normal 94 - 100 [facility] Comment on above: Result Comment: NOT CALCULATED Performed By: #### A FPA4 ####[id number] [place] [address] Sodium [Moles/Vol] 132 mmol/L Low 136 - 145 [facility] Comment on above: Performed By: #### A FPA4 ####[id number] [place] [address] Anion gap [Moles/Vol] 4 mmol/L Low 10 - 25 [facility] Comment on above: Performed By: #### A FPA4 ####[id number] [place] [address] BASE EXCESS-BLOOD 4.3 mmol/L High -2.0 - 3.0 [facility] Comment on above: Performed By: #### A FPA4 ####[id number] [place] [address] BICARB, CALCULATED 30.3 mmol/L High 22.0 - 26.0 [facility] Comment on above: Performed By: #### A FPA4 ####[id number] [place] [address] CALCIUM,IONIZED 1.10 mmol/L Normal 1.10 - 1.33 [facility] Comment on above: Performed By: #### A FPA4 ####[id number] [place] [address] Chloride [Moles/Vol] 103 mmol/L Normal 98 - 107 [facility] Comment on above: Performed By: #### A FPA4 ####[id number] [place] [address] FIO2 55 % Normal [facility] Comment on above: Performed By: #### A FPA4 ####[id number] [place] [address] Glucose [Mass/Vol] 172 mg/dL High 74 - 99 [facility] Comment on above: Performed By: #### A FPA4 ####[id number] [place] [address] Hematocrit (Bld) [Volume fraction] 40.0 % Low 41.0 - 52.0 [facility] Comment on above: Performed By: #### A FPA4 ####[id number] [place] [address] Lactate [Moles/Vol] 1.2 mmol/L Normal 0.4 - 2.0 [facility] Comment on above: Performed By: #### A FPA4 ####[id number] [place] [address] Oxygen (Bld) [Partial pressure] 467 mm[Hg] High 85 - 95 [facility] Comment on above: Performed By: #### A FPA4 ####[id number] [place] [address] PATIENT TEMPERATURE 37.0 degrees C Normal [facility] Comment on above: Result Comment: NOTE : PATIENT RESULTS ARE NOT CORRECTED FOR TEMPERATURE. Performed By: #### A FPA4 ####[id number] [place] [address] PCO2 50 mmHg High 38 - 42 [facility] Comment on above: Performed By: #### A FPA4 ####[id number] [place] [address] pH (Bld) 7.39 [pH] Normal 7.38 - 7.42 [facility] Comment on above: Performed By: #### A FPA4 ####[id number] [place] [address] Potassium [Moles/Vol] 5.6 mmol/L High 3.5 - 5.3 [facility] Comment on above: Performed By: #### A FPA4 ####[id number] [place] [address] SO2 100 % Normal 94 - 100 [facility] Comment on above: Performed By: #### A FPA4 ####[id number] [place] [address] Sodium [Moles/Vol] 132 mmol/L Low 136 - 145 [facility] Comment on above: Performed By: #### A FPA4 ####[id number] [place] [address] Anion gap [Moles/Vol] 3 mmol/L Low 10 - 25 [facility] Comment on above: Performed By: #### A FPA4 ####[id number] [place] [address] BASE EXCESS-BLOOD 5.7 mmol/L High -2.0 - 3.0 [facility] Comment on above: Performed By: #### A FPA4 ####[id number] [place] [address] BICARB, CALCULATED 33.4 mmol/L High 22.0 - 26.0 [facility] Comment on above: Performed By: #### A FPA4 ####[id number] [place] [address] CALCIUM,IONIZED 1.19 mmol/L Normal 1.10 - 1.33 [facility] Comment on above: Performed By: #### A FPA4 ####[id number] [place] [address] Chloride [Moles/Vol] 103 mmol/L Normal 98 - 107 [facility] Comment on above: Performed By: #### A FPA4 ####[id number] [place] [address] FIO2 56 % Normal [facility] Comment on above: Performed By: #### A FPA4 ####[id number] [place] [address] Glucose [Mass/Vol] 108 mg/dL High 74 - 99 [facility] Comment on above: Performed By: #### A FPA4 ####[id number] [place] [address] Hematocrit (Bld) [Volume fraction] 40.0 % Low 41.0 - 52.0 [facility] Comment on above: Performed By: #### A FPA4 ####[id number] [place] [address] Lactate [Moles/Vol] 0.9 mmol/L Normal 0.4 - 2.0 [facility] Comment on above: Performed By: #### A FPA4 ####[id number] [place] [address] Oxygen (Bld) [Partial pressure] 235 mm[Hg] High 85 - 95 [facility] Comment on above: Performed By: #### A FPA4 ####[id number] [place] [address] PATIENT TEMPERATURE 37.0 degrees C Normal [facility] Comment on above: Result Comment: NOTE : PATIENT RESULTS ARE NOT CORRECTED FOR TEMPERATURE. Performed By: #### A FPA4 ####[id number] [place] [address] PCO2 62 mmHg High 38 - 42 [facility] Comment on above: Performed By: #### A FPA4 ####[id number] [place] [address] pH (Bld) 7.34 [pH] Low 7.38 - 7.42 [facility] Comment on above: Performed By: #### A FPA4 ####[id number] [place] [address] Potassium [Moles/Vol] 4.8 mmol/L Normal 3.5 - 5.3 [facility] Comment on above: Performed By: #### A FPA4 ####[id number] [place] [address] SO2 100 % Normal 94 - 100 [facility] Comment on above: Performed By: #### A FPA4 ####[id number] [place] [address] Sodium [Moles/Vol] 135 mmol/L Low 136 - 145 [facility] Comment on above: Performed By: #### A FPA4 ####[id number] [place] [address] CALCIUM, IONIZEDon 3 CALCIUM,IONIZED 1.07 mmol/L Low 1.10 - 1.33 [facility] Comment on above: Result Comment: The performance characteristics of ionized calcium tested in heparinized plasma or serum have been validated by the individual laboratory site where testing is performed. Testing on heparinized plasma or serum is not approved by the FDA; however, such approval is not necessary. Performed By: #### I ONC1 ####[id number] [place] [address] CBCon 08-18-2022 Erythrocyte distribution width (RBC) [Ratio] 13.8 % Normal 11.5 - 14.5 [facility] Comment on above: Performed By: #### C BC ####[id number] [place] [address] Hematocrit (Bld) [Volume fraction] 40.5 % Low 41.0 - 52.0 [facility] Comment on above: Performed By: #### C BC ####[id number] [place] [address] Hemoglobin (Bld) [Mass/Vol] 12.9 g/dL Low 13.5 - 17.5 [facility] Comment on above: Performed By: #### C BC ####[id number] [place] [address] MCHC (RBC) [Mass/Vol] 31.9 g/dL Low 32.0 - 36.0 [facility] Comment on above: Performed By: #### C BC ####[id number] [place] [address] MCV (RBC) [Entitic vol] 99 fL Normal 80 - 100 [facility] Comment on above: Performed By: #### C BC ####[id number] [place] [address] NUCLEATED RBC 0.0 /100 WBC Normal 0.0-0.0 [facility] Comment on above: Performed By: #### C BC ####[id number] [place] [address] Platelets (Bld) [#/Vol] 256 10*3/uL Normal 150 - 450 [facility] Comment on above: Performed By: #### C BC ####[id number] [place] [address] RBC 4.11 x10E12/L Low 4.50 - 5.90 [facility] Comment on above: Performed By: #### C BC ####[id number] [place] [address] WBC (Bld) [#/Vol] 42.5 10*3/uL High 4.4 - 11.3 [facility] Comment on above: Performed By: #### C BC ####[id number] [place] [address] Erythrocyte distribution width (RBC) [Ratio] 13.7 % Normal 11.5 - 14.5 [facility] Comment on above: Performed By: #### C BC ####[id number] [place] [address] Hematocrit (Bld) [Volume fraction] 41.2 % Normal 41.0 - 52.0 [facility] Comment on above: Performed By: #### C BC ####[id number] [place] [address] Hemoglobin (Bld) [Mass/Vol] 12.5 g/dL Low 13.5 - 17.5 [facility] Comment on above: Performed By: #### C BC ####[id number] [place] [address] MCHC (RBC) [Mass/Vol] 30.3 g/dL Low 32.0 - 36.0 [facility] Comment on above: Performed By: #### C BC ####[id number] [place] [address] MCV (RBC) [Entitic vol] 101 fL High 80 - 100 [facility] Comment on above: Performed By: #### C BC ####[id number] [place] [address] NUCLEATED RBC 0.0 /100 WBC Normal 0.0-0.0 [facility] Comment on above: Performed By: #### C BC ####[id number] [place] [address] Platelets (Bld) [#/Vol] 188 10*3/uL Normal 150 - 450 [facility] Comment on above: Performed By: #### C BC ####[id number] [place] [address] RBC 4.08 x10E12/L Low 4.50 - 5.90 [facility] Comment on above: Performed By: #### C BC ####[id number] [place] [address] WBC (Bld) [#/Vol] 9.9 10*3/uL Normal 4.4 - 11.3 [facility] Comment on above: Performed By: #### C BC ####[id number] [place] [address] CBC AND DIFFERENTIALon 08-18 % AUTOMATED IMMATURE GRAN 2.3 % High 0.0 - 0.9 [facility] Comment on above: Result Comment: Nicki ture Granulocyte Count (IG) includes promyelocytes, myelocytes and metamyelocytes but does not include bands. Percent differential counts (%) should be interpreted in the context of the absolute cell counts (cells/L). Performed By: #### C BCDF ####[id number] [place] [address] Basophils (Bld) [#/Vol] 0.11 10*3/uL High 0.00 - 0.10 [facility] Comment on above: Performed By: #### C BCDF ####[id number] [place] [address] Basophils/100 WBC (Bld) 0.3 % Normal 0.0 - 2.0 [facility] Comment on above: Performed By: #### C BCDF ####[id number] [place] [address] Eosinophils (Bld) [#/Vol] 0.01 10*3/uL Normal 0.00 - 0.70 [facility] Comment on above: Performed By: #### C BCDF ####[id number] [place] [address] Eosinophils/100 WBC (Bld) 0.0 % Normal 0.0 - 6.0 [facility] Comment on above: Performed By: #### C BCDF ####[id number] [place] [address] Erythrocyte distribution width (RBC) [Ratio] 13.5 % Normal 11.5 - 14.5 [facility] Comment on above: Performed By: #### C BCDF ####[id number] [place] [address] Hematocrit (Bld) [Volume fraction] 35.9 % Low 41.0 - 52.0 [facility] Comment on above: Performed By: #### C BCDF ####[id number] [place] [address] Hemoglobin (Bld) [Mass/Vol] 12.0 g/dL Low 13.5 - 17.5 [facility] Comment on above: Performed By: #### C BCDF ####[id number] [place] [address] Lymphocytes (Bld) [#/Vol] 0.80 10*3/uL Low 1.20 - 4.80 [facility] Comment on above: Performed By: #### C BCDF ####[id number] [place] [address] Lymphocytes/100 WBC (Bld) 2.2 % Normal 13.0 - 44.0 [facility] Comment on above: Performed By: #### C BCDF ####[id number] [place] [address] MCHC (RBC) [Mass/Vol] 33.4 g/dL Normal 32.0 - 36.0 [facility] Comment on above: Performed By: #### C BCDF ####[id number] [place] [address] MCV (RBC) [Entitic vol] 98 fL Normal 80 - 100 [facility] Comment on above: Performed By: #### C BCDF ####[id number] [place] [address] Monocytes (Bld) [#/Vol] 2.04 10*3/uL High 0.10 - 1.00 [facility] Comment on above: Performed By: #### C BCDF ####[id number] [place] [address] Monocytes/100 WBC (Bld) 5.5 % Normal 2.0 - 10.0 [facility] Comment on above: Performed By: #### C BCDF ####[id number] [place] [address] Neutrophils (Bld) [#/Vol] 33.28 10*3/uL High 1.20 - 7.70 [facility] Comment on above: Performed By: #### C BCDF ####[id number] [place] [address] Neutrophils/100 WBC (Bld) 89.7 % Normal 40.0 - 80.0 [facility] Comment on above: Performed By: #### C BCDF ####[id number] [place] [address] NUCLEATED RBC 0.0 /100 WBC Normal 0.0-0.0 [facility] Comment on above: Performed By: #### C BCDF ####[id number] [place] [address] Platelets (Bld) [#/Vol] 225 10*3/uL Normal 150 - 450 [facility] Comment on above: Performed By: #### C BCDF ####[id number] [place] [address] RBC 3.65 x10E12/L Low 4.50 - 5.90 [facility] Comment on above: Performed By: #### C BCDF ####[id number] [place] [address] WBC (Bld) [#/Vol] 37.1 10*3/uL High 4.4 - 11.3 [facility] Comment on above: Performed By: #### C BCDF ####[id number] [place] [address] COOX PANEL, ARTERIALon 08-18 CO HGB 1.6 % Abnormal [facility] Comment on above: Result Comment: REF VALUESNONSMOKERS 0.5-1.5%SMOKERS 0.5-10.0% Performed By: #### C OXA1 ####[id number] [place] [address] DEOXY HGB 0.6 % Normal 0.0 - 5.0 [facility] Comment on above: Performed By: #### C OXA1 ####[id number] [place] [address] Hemoglobin (Bld) [Mass/Vol] 13.2 g/dL Low 13.5 - 17.5 [facility] Comment on above: Performed By: #### C OXA1 ####[id number] [place] [address] Performed By: #### A FPA4 ####[id number] [place] [address] MET HGB 0.9 % Normal 0.0 - 1.5 [facility] Comment on above: Performed By: #### C OXA1 ####[id number] [place] [address] OXY HGB 96.8 % Normal 94.0 - 98.0 [facility] Comment on above: Performed By: #### C OXA1 ####[id number] [place] [address] Performed By: #### A FPA4 ####[id number] [id number] CO HGB 1.9 % Abnormal [facility] Comment on above: Result Comment: REF VALUESNONSMOKERS 0.5-1.5%SMOKERS 0.5-10.0% Performed By: #### C OXA1 ####[id number] [place] [address] DEOXY HGB 0.0 % Normal 0.0 - 5.0 [facility] Comment on above: Performed By: #### C OXA1 ####[id number] [place] [address] Hemoglobin (Bld) [Mass/Vol] 12.6 g/dL Low 13.5 - 17.5 [facility] Comment on above: Performed By: #### C OXA1 ####[id number] [place] [address] Performed By: #### A FPA4 ####[id number] [place] [address] MET HGB 0.6 % Normal 0.0 - 1.5 [facility] Comment on above: Performed By: #### C OXA1 ####[id number] 2536406 OXY HGB 97.4 % Normal 94.0 - 98.0 [facility] Comment on above: Performed By: #### C OXA1 ####[id number] [id number] Performed By: #### A FPA4 ####[id number] [address] CO HGB 1.7 % Abnormal [facility] Comment on above: Result Comment: REF VALUESNONSMOKERS 0.5-1.5%SMOKERS 0.5-10.0% Performed By: #### C OXA1 ####[id number] 2536406 DEOXY HGB 0.3 % Normal 0.0 - 5.0 [facility] Comment on above: Performed By: #### C OXA1 ####[id number] 2536406 Hemoglobin (Bld) [Mass/Vol] 11.9 g/dL Low 13.5 - 17.5 [facility] Comment on above: Performed By: #### C OXA1 ####[id number] 2536406 Performed By: #### A FPA4 ####[id number] MET HGB 0.6 % Normal 0.0 - 1.5 [facility] Comment on above: Performed By: #### C OXA1 ####[id number] 2536406 OXY HGB 97.4 % Normal 94.0 - 98.0 [facility] Comment on above: Performed By: #### C OXA1 ####[id number] 2536406 Performed By: #### A FPA4 ####[id number] 2536406 CO HGB SEE COMMENT Normal [facility] Comment on above: Result Comment: REF VALUESNONSMOKERS 0.5-1.5%SMOKERS 0.5-10.0%NOT CALCULATED Performed By: #### C OXA1 ####[id number] [place] [address] DEOXY HGB SEE COMMENT Normal 0.0 - 5.0 [facility] Comment on above: Result Comment: NOT CALCULATED Performed By: #### C OXA1 ####[id number] [place] [address] MET HGB SEE COMMENT Normal 0.0 - 1.5 [facility] Comment on above: Result Comment: NOT CALCULATED Performed By: #### C OXA1 ####[id number] [place] [address] CO HGB 1.7 % Abnormal [facility] Comment on above: Result Comment: REF VALUESNONSMOKERS 0.5-1.5%SMOKERS 0.5-10.0% Performed By: #### C OXA1 ####[id number] [place] [address] DEOXY HGB 0.2 % Normal 0.0 - 5.0 [facility] Comment on above: Performed By: #### C OXA1 ####[id number] [place] [address] MET HGB 0.7 % Normal 0.0 - 1.5 [facility] Comment on above: Performed By: #### C OXA1 ####[id number] [place] [address] CO HGB 1.4 % Normal [facility] Comment on above: Result Comment: REF VALUESNONSMOKERS 0.5-1.5%SMOKERS 0.5-10.0% Performed By: #### C OXA1 ####[id number] [place] [address] DEOXY HGB 1.0 % Normal 0.0 - 5.0 [facility] Comment on above: Performed By: #### C OXA1 ####[id number] [place] [address] MET HGB 0.9 % Normal 0.0 - 1.5 [facility] Comment on above: Performed By: #### C OXA1 ####[id number] 2536406 CO HGB 1.7 % Abnormal [facility] Comment on above: Result Comment: REF VALUESNONSMOKERS 0.5-1.5%SMOKERS 0.5-10.0% Performed By: #### C OXA1 ####[id number] 2536406 DEOXY HGB 0.2 % Normal 0.0 - 5.0 [facility] Comment on above: Performed By: #### C OXA1 ####[id number] [place] [address] Hemoglobin (Bld) [Mass/Vol] 12.2 g/dL Low 13.5 - 17.5 [facility] Comment on above: Performed By: #### C OXA1 ####[id number] [place] [address] Performed By: #### A FPA4 ####[id number] 2536406 MET HGB 0.8 % Normal 0.0 - 1.5 [facility] Comment on above: Performed By: #### C OXA1 ####[id number] 2536406 OXY HGB 97.2 % Normal 94.0 - 98.0 [facility] Comment on above: Performed By: #### C OXA1 ####[id number] [place] [address] Performed By: #### A FPA4 ####[id number] 2536406 CO HGB SEE COMMENT Normal [facility] Comment on above: Result Comment: REF VALUESNONSMOKERS 0.5-1.5%SMOKERS 0.5-10.0%NOT CALCULATED Performed By: #### C OXA1 ####[id number] 2536406 DEOXY HGB SEE COMMENT Normal 0.0 - 5.0 [facility] Comment on above: Result Comment: NOT CALCULATED Performed By: #### C OXA1 ####[id number] 2536406 HGB SEE COMMENT Normal 13.5 - 17.5 [facility] Comment on above: Result Comment: NOT CALCULATED Performed By: #### C OXA1 ####[id number] 2536406 Performed By: #### A FPA4 ####[id number] 2536406 MET HGB SEE COMMENT Normal 0.0 - 1.5 [facility] Comment on above: Result Comment: NOT CALCULATED Performed By: #### C OXA1 ####[id number] 2536406 OXY HGB SEE COMMENT Normal 94.0 - 98.0 [facility] Comment on above: Result Comment: NOT CALCULATED Performed By: #### C OXA1 ####[id number] 2536406 Performed By: #### A FPA4 ####[id number] [place] [address] CO HGB 1.5 % Normal [facility] Comment on above: Result Comment: REF VALUESNONSMOKERS 0.5-1.5%SMOKERS 0.5-10.0% Performed By: #### C OXA1 ####[id number] 2536406 DEOXY HGB 0.3 % Normal 0.0 - 5.0 [facility] Comment on above: Performed By: #### C OXA1 ####[id number] 2536406 Hemoglobin (Bld) [Mass/Vol] 13.2 g/dL Low 13.5 - 17.5 [facility] Comment on above: Performed By: #### C OXA1 ####[id number] 2536406 Performed By: #### A FPA4 ####[id number] [place] [address] MET HGB 0.9 % Normal 0.0 - 1.5 [facility] Comment on above: Performed By: #### C OXA1 ####[id number] [place] [address] OXY HGB 97.2 % Normal 94.0 - 98.0 [facility] Comment on above: Performed By: #### C OXA1 ####[id number] [place] [address] Performed By: #### A FPA4 ####[id number] CO HGB 1.7 % Abnormal [facility] Comment on above: Result Comment: REF VALUESNONSMOKERS 0.5-1.5%SMOKERS 0.5-10.0% Performed By: #### C OXA1 ####[id number] DEOXY HGB 0.2 % Normal 0.0 - 5.0 [facility] Comment on above: Performed By: #### C OXA1 ####[id number] 2536406 Hemoglobin (Bld) [Mass/Vol] 13.2 g/dL Low 13.5 - 17.5 [facility] Comment on above: Performed By: #### C OXA1 ####[id number] [place] [address] Performed By: #### A FPA4 ####[id number] MET HGB 0.7 % Normal 0.0 - 1.5 [facility] Comment on above: Performed By: #### C OXA1 ####[id number] [place] [address] OXY HGB 97.5 % Normal 94.0 - 98.0 [facility] Comment on above: Performed By: #### C OXA1 ####[id number] [place] [address] Performed By: #### A FPA4 ####[id number] [place] [address] COOX PANEL,VENOUSon 08-19-19 23 CO HGB 1.9 % Abnormal [facility] Comment on above: Result Comment: REF VALUESNONSMOKERS 0.5-1.5%SMOKERS 0.5-10.0% Performed By: #### C OXV1 ####[id number] [place] [address] MET HGB 0.9 % Normal 0.0 - 1.5 [facility] Comment on above: Performed By: #### C OXV1 ####[id number] [place] [address] Cult, Fungus +smearon 2022 Fungus identified Cx Nom (Unsp spec) [facility] Work Phone: EMR ADDONon 08-18-2022 ADDON CONFIRMATION REQUEST REC'D Normal [facility] Comment on above: Performed By: #### E MRAD ####NO LOCATION NEEDED FUNGAL CULTURE/SM, MISCon FUNGAL CULTURE/SM, MISC Normal [facility] Comment on above: Performed By: #### F [employer] ####[id number] [place] [address] GLUCOSE-POCTon 08-18-2022 Glucose [Mass/Vol] 253 mg/dL High 74 - 99 [facility] Comment on above: Performed By: #### G EDI ####[id number] [place] [address] Glucose [Mass/Vol] 148 mg/dL High 74 - 99 [facility] Comment on above: Performed By: #### G EDI ####[id number] [place] [address] Glucose [Mass/Vol] 181 mg/dL High 74 - 99 [facility] Comment on above: Performed By: #### G EDI ####[id number] [place] [address] HEPARIN ASSAY,UFHon 08-19-19 23 HEPARIN ASSAY,UFH 0.4 IU/mL Normal [facility] Comment on above: Result Comment: The therapeutic reference range for UFH may be either 0.3-0.6 IU/mL or 0.3-0.7 IU/mL based on the clinical setting for anticoagulant therapy and the associated nomogram used. For heparin dosing guidelines based on clinical scenario and Heparin Assay results, please refer to local Pharmacy and the [facility] Guidelines for Anticoagulation therapy available on the [facility] intranet at:[email or web address] Performed By: #### H AUF ####[id number] [place] [address] HEPATIC FUNCTION PANELon ALP [Catalytic activity/Vol] 60 U/L Normal 33 - 120 [facility] Comment on above: Performed By: #### H EPFP ####[id number] [place] [address] ALT [Catalytic activity/Vol] 22 U/L Normal 10 - 52 [facility] Comment on above: Result Comment: Kristi ents treated with Sulfasalazine may generate falsely decreased results for ALT. Performed By: #### H EPFP ####[id number] [place] [address] AST [Catalytic activity/Vol] 31 U/L Normal 9 - 39 [facility] Comment on above: Performed By: #### H EPFP ####[id number] [place] [address] Bilirubin [Mass/Vol] 0.8 mg/dL Normal 0.0 - 1.2 [facility] Comment on above: Performed By: #### H EPFP ####[id number] [place] [address] Bilirubin.indirect [Mass/Vol] 0.5 mg/dL High 0.0 - 0.3 [facility] Comment on above: Performed By: #### H EPFP ####[id number] [place] [address] Protein [Mass/Vol] 5.4 g/dL Low 6.4 - 8.2 [facility] Comment on above: Performed By: #### H EPFP ####[id number] [place] [address] Intraoperative Transesophage al Echoon 08-18-2022 Intraoperative Transesophageal Echo Normal [facility] MAGNESIUMon 08-18-2022 Magnesium [Mass/Vol] 1.44 mg/dL Low 1.60 - 2.40 [facility] Comment on above: Performed By: #### M G ####[id number] [place] [address] Magnesium [Mass/Vol] 2.06 mg/dL Normal 1.60 - 2.40 [facility] Comment on above: Performed By: #### M G ####[id number] [place] [address] MISCELLANEOUS CULT./SM.BACT. on 08-18-2022 MISCELLANEOUS CULT./SM.BACT. Normal [facility] Comment on above: Performed By: #### M ISCC ####[id number] [place] [address] MV FULL PANELon 08-18-2022 Anion gap [Moles/Vol] 19 mmol/L Normal 10 - 25 [facility] Comment on above: Order Comment: RB TO ANDREINA FISHER, 08/18/2022 18:08 Performed By: #### M VPA4 ####[id number] [place] [address] BASE EXCESS-BLOOD -8.3 mmol/L Normal [facility] Comment on above: Order Comment: RB TO ANDREINA FISHER, 08/18/2022 18:08 Performed By: #### M VPA4 ####[id number] [place] [address] BICARB, CALCULATED 19.6 mmol/L Normal [facility] Comment on above: Order Comment: RB TO ANDREINA FISHER, 08/18/2022 18:08 Performed By: #### M VPA4 ####[id number] [place] [address] CALCIUM,IONIZED 1.15 mmol/L Normal 1.10 - 1.33 [facility] Comment on above: Order Comment: RB TO ANDREINA FISHER, 08/18/2022 18:08 Performed By: #### M VPA4 ####[id number] [place] [address] Chloride [Moles/Vol] 101 mmol/L Normal 98 - 107 [facility] Comment on above: Order Comment: RB TO ANDREINA VELAJAI, 08/18/2022 18:08 Performed By: #### M VPA4 ####[id number] [place] [address] Glucose [Mass/Vol] 217 mg/dL High 74 - 99 [facility] Comment on above: Order Comment: RB TO ANDREINA PHILLIP, 08/18/2022 18:08 Performed By: #### M VPA4 ####[id number] [place] [address] Hematocrit (Bld) [Volume fraction] 37.0 % Low 41.0 - 52.0 [facility] Comment on above: Order Comment: RB TO ANDREINA FISHER, 08/18/2022 18:08 Performed By: #### M VPA4 ####[id number] [place] [address] Hemoglobin (Bld) [Mass/Vol] 12.3 g/dL Low 13.5 - 17.5 [facility] Comment on above: Order Comment: RB TO ANDREINA FISHER, 08/18/2022 18:08 Performed By: #### M VPA4 ####[id number] [place] [address] Lactate [Moles/Vol] 10.9 mmol/L Critically high 0.4 - 2.0 [facility] Comment on above: Order Comment: RB TO ANDREINA PHILLIP, 08/18/2022 18:08 Result Comment: RB T O ANDREINA FISHER, 08/18/2022 18:08 Performed By: #### M VPA4 ####[id number] [place] [address] OXY HGB 81.5 % High 45.0 - 75.0 [facility] Comment on above: Order Comment: RB TO ANDREINA FISHER, 08/18/2022 18:08 Performed By: #### M VPA4 ####[id number] [place] [address] Oxygen (Bld) [Partial pressure] 57 mm[Hg] Normal [facility] Comment on above: Order Comment: RB TO ANDREINA VELAJAI, 08/18/2022 18:08 Performed By: #### M VPA4 ####[id number] [place] [address] PATIENT TEMPERATURE 37.0 degrees Normal [facility] Comment on above: Order Comment: RB TO ANDREINA PHILLIP, 08/18/2022 18:08 Result Comment: NOTE : PATIENT RESULTS ARE NOT CORRECTED FOR TEMPERATURE. Performed By: #### M VPA4 ####[id number] [place] [address] PCO2 49 mmHg Normal [facility] Comment on above: Order Comment: RB TO ANDREINA FISHER, 08/18/2022 18:08 Performed By: #### M VPA4 ####[id number] [place] [address] pH (Bld) 7.21 [pH] Normal [facility] Comment on above: Order Comment: RB TO ANDREINA FISHER, 08/18/2022 18:08 Performed By: #### M VPA4 ####[id number] [place] [address] Potassium [Moles/Vol] 3.6 mmol/L Normal 3.5 - 5.3 [facility] Comment on above: Order Comment: RB TO ANDREINA FISHER, 08/18/2022 18:08 Performed By: #### M VPA4 ####[id number] [place] [address] SO2 84 % Normal [facility] Comment on above: Order Comment: RB TO ANDREINA FISHER, 08/18/2022 18:08 Performed By: #### M VPA4 ####[id number] [place] [address] Sodium [Moles/Vol] 136 mmol/L Normal 136 - 145 [facility] Comment on above: Order Comment: RB TO ANDREINA FISHER, 08/18/2022 18:08 Performed By: #### M VPA4 ####[id number] [place] [address] Anion gap [Moles/Vol] 18 mmol/L Normal 10 - 25 [facility] Comment on above: Performed By: #### M VPA4 ####[id number] [place] [address] BASE EXCESS-BLOOD -7.6 mmol/L Normal [facility] Comment on above: Performed By: #### M VPA4 ####[id number] [place] [address] BICARB, CALCULATED 21.3 mmol/L Normal [facility] Comment on above: Performed By: #### M VPA4 ####[id number] [place] [address] CALCIUM,IONIZED 1.14 mmol/L Normal 1.10 - 1.33 [facility] Comment on above: Performed By: #### M VPA4 ####[id number] [place] [address] Chloride [Moles/Vol] 101 mmol/L Normal 98 - 107 [facility] Comment on above: Performed By: #### M VPA4 ####[id number] [place] [address] Glucose [Mass/Vol] 175 mg/dL High 74 - 99 [facility] Comment on above: Performed By: #### M VPA4 ####[id number] [place] [address] Hematocrit (Bld) [Volume fraction] 39.0 % Low 41.0 - 52.0 [facility] Comment on above: Performed By: #### M VPA4 ####[id number] [place] [address] Hemoglobin (Bld) [Mass/Vol] 13.0 g/dL Low 13.5 - 17.5 [facility] Comment on above: Performed By: #### M VPA4 ####[id number] [place] [address] Lactate [Moles/Vol] 7.8 mmol/L Critically high 0.4 - 2.0 [facility] Comment on above: Performed By: #### M VPA4 ####[id number] [place] [address] OXY HGB 73.8 % Normal 45.0 - 75.0 [facility] Comment on above: Performed By: #### M VPA4 ####[id number] [place] [address] Oxygen (Bld) [Partial pressure] 53 mm[Hg] Normal [facility] Comment on above: Performed By: #### M VPA4 ####[id number] [place] [address] PATIENT TEMPERATURE 37.0 degrees Normal [facility] Comment on above: Result Comment: NOTE : PATIENT RESULTS ARE NOT CORRECTED FOR TEMPERATURE. Performed By: #### M VPA4 ####[id number] [place] [address] PCO2 57 mmHg Normal [facility] Comment on above: Performed By: #### M VPA4 ####[id number] [place] [address] pH (Bld) 7.18 [pH] Normal [facility] Comment on above: Performed By: #### M VPA4 ####[id number] [place] [address] Potassium [Moles/Vol] 3.6 mmol/L Normal 3.5 - 5.3 [facility] Comment on above: Performed By: #### M VPA4 ####[id number] [place] [address] SO2 76 % Normal [facility] Comment on above: Performed By: #### M VPA4 ####[id number] [place] [address] Sodium [Moles/Vol] 137 mmol/L Normal 136 - 145 [facility] Comment on above: Performed By: #### M VPA4 ####[id number] [place] [address] Operative Reports - CMCon Operative Reports - [facility] [place] Normal [facility] PLATELETSon 08-18-2022 PLATELETS ORDER RECD Normal [facility] Comment on above: Result Comment: If t his patient is Rh Negative and if the Plateletproduct transfused is Rh Positive, review the useof WinRho Prophylaxis for this patient. Performed By: #### P LT ####[id number] [place] [address] Preop Checkliston 08-18-2022 Preop Checklist Normal [facility] RENAL FUNCTION PANELon 08-18 Albumin [Mass/Vol] 3.3 g/dL Low 3.4 - 5.0 [facility] Comment on above: Performed By: #### R ENAL ####[id number] [place] [address] Performed By: #### H EPFP ####[id number] [place] [address] Anion gap [Moles/Vol] 24 mmol/L High 10 - 20 [facility] Comment on above: Performed By: #### R ENAL ####[id number] [place] [address] Calcium [Mass/Vol] 8.6 mg/dL Normal 8.6 - 10.6 [facility] Comment on above: Performed By: #### R ENAL ####[id number] [place] [address] Chloride [Moles/Vol] 103 mmol/L Normal 98 - 107 [facility] Comment on above: Performed By: #### R ENAL ####[id number] [place] [address] Creatinine [Mass/Vol] 1.86 mg/dL High 0.50 - 1.30 [facility] Comment on above: Performed By: #### R ENAL ####[id number] [place] [address] GFR/1.73 sq M.predicted among non-blacks MDRD (S/P/Bld) [Vol rate/Area] 45 mL/min/{1.73_m2} Abnormal >90 [facility] Comment on above: Result Comment: CALC ULATIONS OF ESTIMATED GFR ARE PERFORMED USING THE 2020 CKD-EPI STUDY REFIT EQUATION WITHOUT THE RACE VARIABLE FOR THE IDMS-TRACEABLE CREATININE METHODS.https://jasn.asnjournals.org/content//A [email or web address] Performed By: #### R ENAL ####[id number] [place] [address] Glucose [Mass/Vol] 223 mg/dL High 74 - 99 [facility] Comment on above: Performed By: #### R ENAL ####[id number] [place] [address] HCO3 (Bld) [Moles/Vol] 19 mmol/L Low 21 - 32 [facility] Comment on above: Performed By: #### R ENAL ####[id number] [place] [address] Phosphate [Mass/Vol] 1.8 mg/dL Low 2.5 - 4.9 [facility] Comment on above: Result Comment: The performance characteristics of phosphorus testing in heparinized plasma have been validated by the individual laboratory site where testing is performed. Testing on heparinized plasma is not approved by the FDA; however, such approval is not necessary. Performed By: #### R ENAL ####[id number] [place] [address] Potassium [Moles/Vol] 3.6 mmol/L Normal 3.5 - 5.3 [facility] Comment on above: Performed By: #### R ENAL ####[id number] [place] [address] Sodium [Moles/Vol] 142 mmol/L Normal 136 - 145 [facility] Comment on above: Performed By: #### R ENAL ####[id number] [place] [address] Urea nitrogen [Mass/Vol] 20 mg/dL Normal 6 - 23 [facility] Comment on above: Performed By: #### R ENAL ####[id number] [place] [address] Anion gap [Moles/Vol] 14 mmol/L Normal 10 - 20 [facility] Comment on above: Order Comment: POTAS SIUM AND CALCIUM Called- RB to [facility], 08/18/2022 16:11 Performed By: #### R ENAL ####[id number] [place] [address] Calcium [Mass/Vol] 4.8 mg/dL Critically low 8.6 - 10.6 [facility] Comment on above: Order Comment: POTAS SIUM AND CALCIUM Called- RB to [facility], 08/18/2022 16:11 Result Comment: POTA SSIUM AND CALCIUM Called- RB to [facility], 08/18/2022 16:11 Performed By: #### R ENAL ####[id number] [place] [address] Chloride [Moles/Vol] 122 mmol/L High 98 - 107 [facility] Comment on above: Order Comment: POTAS SIUM AND CALCIUM Called- RB to [facility], 08/18/2022 16:11 Performed By: #### R ENAL ####[id number] [place] [address] HCO3 (Bld) [Moles/Vol] 13 mmol/L Low 21 - 32 [facility] Comment on above: Order Comment: POTAS SIUM AND CALCIUM Called- RB to [facility], 08/18/2022 16:11 Performed By: #### R ENAL ####[id number] [place] [address] Potassium [Moles/Vol] 2.3 mmol/L Critically low 3.5 - 5.3 [facility] Comment on above: Order Comment: POTAS SIUM AND CALCIUM Called- RB to [facility], 08/18/2022 16:11 Result Comment: POTA SSIUM AND CALCIUM Called- RB to [facility], 08/18/2022 16:11 Performed By: #### R ENAL ####[id number] [place] [address] Sodium [Moles/Vol] 147 mmol/L High 136 - 145 [facility] Comment on above: Order Comment: POTAS SIUM AND CALCIUM Called- RB to [facility], 08/18/2022 16:11 Performed By: #### R ENAL ####[id number] [place] [address] Albumin [Mass/Vol] 1.6 g/dL Low 3.4 - 5.0 [facility] Comment on above: Order Comment: POTAS SIUM AND CALCIUM Called- RB to [facility], 08/18/2022 16:11 Performed By: #### R ENAL ####[id number] [place] [address] Creatinine [Mass/Vol] 1.02 mg/dL Normal 0.50 - 1.30 [facility] Comment on above: Order Comment: POTAS SIUM AND CALCIUM Called- RB to [facility], 08/18/2022 16:11 Performed By: #### R ENAL ####[id number] [place] [address] eGFR MALE >90 Normal >90 [facility] Comment on above: Order Comment: POTAS SIUM AND CALCIUM Called- RB to [facility], 08/18/2022 16:11 Result Comment: CALC ULATIONS OF ESTIMATED GFR ARE PERFORMED USING THE 2020 CKD-EPI STUDY REFIT EQUATION WITHOUT THE RACE VARIABLE FOR THE IDMS-TRACEABLE CREATININE METHODS.https://jasn.asnjournals.org/content//A SN.1642733482 Performed By: #### R ENAL ####[id number] [place] [address] Glucose [Mass/Vol] 94 mg/dL Normal 74 - 99 [facility] Comment on above: Order Comment: POTAS SIUM AND CALCIUM Called- RB to [facility], 08/18/2022 16:11 Performed By: #### R ENAL ####[id number] [place] [address] Phosphate [Mass/Vol] 2.4 mg/dL Low 2.5 - 4.9 [facility] Comment on above: Order Comment: POTAS SIUM AND CALCIUM Called- RB to [facility], 08/18/2022 16:11 Result Comment: The performance characteristics of phosphorus testing in heparinized plasma have been validated by the individual laboratory site where testing is performed. Testing on heparinized plasma is not approved by the FDA; however, such approval is not necessary. Performed By: #### R ENAL ####[id number] [place] [address] Urea nitrogen [Mass/Vol] 12 mg/dL Normal 6 - 23 [facility] Comment on above: Order Comment: POTAS SIUM AND CALCIUM Called- RB to [facility], 08/18/2022 16:11 Performed By: #### R ENAL ####[id number] [place] [address] Albumin [Mass/Vol] 3.1 g/dL Low 3.4 - 5.0 [facility] Comment on above: Performed By: #### R ENAL ####[id number] [place] [address] Anion gap [Moles/Vol] 12 mmol/L Normal 10 - 20 [facility] Comment on above: Performed By: #### R ENAL ####[id number] [place] [address] Calcium [Mass/Vol] 8.9 mg/dL Normal 8.6 - 10.6 [facility] Comment on above: Performed By: #### R ENAL ####[id number] [place] [address] Chloride [Moles/Vol] 102 mmol/L Normal 98 - 107 [facility] Comment on above: Performed By: #### R ENAL ####[id number] [place] [address] Creatinine [Mass/Vol] 1.39 mg/dL High 0.50 - 1.30 [facility] Comment on above: Performed By: #### R ENAL ####[id number] [place] [address] GFR/1.73 sq M.predicted among non-blacks MDRD (S/P/Bld) [Vol rate/Area] 64 mL/min/{1.73_m2} Normal >90 [facility] Comment on above: Result Comment: CALC ULATIONS OF ESTIMATED GFR ARE PERFORMED USING THE 2020 CKD-EPI STUDY REFIT EQUATION WITHOUT THE RACE VARIABLE FOR THE IDMS-TRACEABLE CREATININE METHODS.https://jasn.asnjournals.org/content//A SN.3109609001 Performed By: #### R ENAL ####[id number] [place] [address] Glucose [Mass/Vol] 98 mg/dL Normal 74 - 99 [facility] Comment on above: Performed By: #### R ENAL ####[id number] [place] [address] HCO3 (Bld) [Moles/Vol] 32 mmol/L Normal 21 - 32 [facility] Comment on above: Performed By: #### R ENAL ####[id number] [place] [address] Phosphate [Mass/Vol] 5.3 mg/dL High 2.5 - 4.9 [facility] Comment on above: Result Comment: The performance characteristics of phosphorus testing in heparinized plasma have been validated by the individual laboratory site where testing is performed. Testing on heparinized plasma is not approved by the FDA; however, such approval is not necessary. Performed By: #### R ENAL ####[id number] [place] [address] Potassium [Moles/Vol] 4.7 mmol/L Normal 3.5 - 5.3 [facility] Comment on above: Performed By: #### R ENAL ####[id number] [place] [address] Sodium [Moles/Vol] 141 mmol/L Normal 136 - 145 [facility] Comment on above: Performed By: #### R ENAL ####[id number] [place] [address] Urea nitrogen [Mass/Vol] 19 mg/dL Normal 6 - 23 [facility] Comment on above: Performed By: #### R ENAL ####[id number] [place] [address] TH CHEST 1 VIEWon 08-18-2022 TH CHEST 1 VIEW Normal [facility] Surgical Pathology Depar tmenton 08-18-2022 [facility] Surgical Pathology Department Normal [facility] Comment on above: Performed By: #### U HCS ####[facility] Surgical Pathology [id number] [place] [address] VENOUS FULL PANELon 08-19-19 23 Anion gap [Moles/Vol] 22 mmol/L Normal 10 - 25 [facility] Comment on above: Order Comment: PHVEN LACTV CALLED TO LAURA BRAD RB, 08/18/2022 20:49 Performed By: #### V FPA4 ####[id number] [place] [address] BASE EXCESS-BLOOD -8.9 mmol/L Low -2.0 - 3.0 [facility] Comment on above: Order Comment: PHVEN LACTV CALLED TO LAURA BRAD , 08/18/2022 20:49 Performed By: #### V FPA4 ####[id number] [place] [address] BICARB, CALCULATED 18.8 mmol/L Low 22.0 - 26.0 [facility] Comment on above: Order Comment: PHVEN LACTV CALLED TO LAURA BRAD RB, 08/18/2022 20:49 Performed By: #### V FPA4 ####[id number] [place] [address] CALCIUM,IONIZED 1.12 mmol/L Normal 1.10 - 1.33 [facility] Comment on above: Order Comment: PHVEN LACTV CALLED TO LAURA BRAD RB, 08/18/2022 20:49 Performed By: #### V FPA4 ####[id number] [place] [address] Chloride [Moles/Vol] 102 mmol/L Normal 98 - 107 [facility] Comment on above: Order Comment: PHVEN LACTV CALLED TO LAURA BRAD RB, 08/18/2022 20:49 Performed By: #### V FPA4 ####[id number] [place] [address] Glucose [Mass/Vol] 314 mg/dL High 74 - 99 [facility] Comment on above: Order Comment: PHVEN LACTV CALLED TO LAURA SALINAS , 08/18/2022 20:49 Performed By: #### V FPA4 ####[id number] [place] [address] Hematocrit (Bld) [Volume fraction] 35.0 % Low 41.0 - 52.0 [facility] Comment on above: Order Comment: PHVEN LACTV CALLED TO LAURA KISS , 08/18/2022 20:49 Performed By: #### V FPA4 ####[id number] [place] [address] Hemoglobin (Bld) [Mass/Vol] 11.8 g/dL Low 13.5 - 17.5 [facility] Comment on above: Order Comment: PHVEN LACTV CALLED TO LAURA KISS , 08/18/2022 20:49 Performed By: #### V FPA4 ####[id number] [place] [address] Lactate [Moles/Vol] 12.4 mmol/L Critically high 0.4 - 2.0 [facility] Comment on above: Order Comment: PHVEN LACTV CALLED TO LAURA SALINAS , 08/18/2022 20:49 Result Comment: PHVE N LACTV CALLED TO LAURA SALINAS , 08/18/2022 20:49 Performed By: #### V FPA4 ####[id number] [place] [address] OXY HGB 80.6 % High 45.0 - 75.0 [facility] Comment on above: Order Comment: PHVEN LACTV CALLED TO LAURA KISS , 08/18/2022 20:49 Performed By: #### V FPA4 ####[id number] [place] [address] Oxygen (Bld) [Partial pressure] 56 mm[Hg] High 35 - 45 [facility] Comment on above: Order Comment: PHVEN LACTV CALLED TO LAURA SALINAS , 08/18/2022 20:49 Performed By: #### V FPA4 ####[id number] [place] [address] PATIENT TEMPERATURE 37.0 degrees C Normal [facility] Comment on above: Order Comment: PHVEN LACTV CALLED TO LAURA KISS RB, 08/18/2022 20:49 Result Comment: NOTE : PATIENT RESULTS ARE NOT CORRECTED FOR TEMPERATURE. Performed By: #### V FPA4 ####[id number] [id number] PCO2 47 mmHg Normal 41 - 51 [facility] Comment on above: Order Comment: PHVEN LACTV CALLED TO LAURA KISS RB, 08/18/2022 20:49 Performed By: #### V FPA4 ####[id number] 2536406 pH (Bld) 7.21 [pH] Critically low 7.33 - 7.43 [facility] Comment on above: Order Comment: PHVEN LACTV CALLED TO LAURA KISS RB, 08/18/2022 20:49 Result Comment: PHVE N LACTV CALLED TO LAURA KISS , 08/18/2022 20:49 Performed By: #### V FPA4 ####[id number] [id number] Potassium [Moles/Vol] 4.1 mmol/L Normal 3.5 - 5.3 [facility] Comment on above: Order Comment: PHVEN LACTV CALLED TO LAURA KISS RB, 08/18/2022 20:49 Performed By: #### V FPA4 ####[id number] 2536406 SO2 82 % High 45 - 75 [facility] Comment on above: Order Comment: PHVEN LACTV CALLED TO LAURA KISS RB, 08/18/2022 20:49 Performed By: #### V FPA4 ####[id number] 2536406 Sodium [Moles/Vol] 139 mmol/L Normal 136 - 145 [facility] Comment on above: Order Comment: PHVEN LACTV CALLED TO LAURA KISS RB, 08/18/2022 20:49 Performed By: #### V FPA4 ####[id number] [place] [address] Anion gap [Moles/Vol] 10 mmol/L Normal 10 - 25 [facility] Comment on above: Performed By: #### V FPA4 ####[id number] [place] [address] BASE EXCESS-BLOOD 1.9 mmol/L Normal -2.0 - 3.0 [facility] Comment on above: Performed By: #### V FPA4 ####[id number] [place] [address] BICARB, CALCULATED 29.8 mmol/L High 22.0 - 26.0 [facility] Comment on above: Performed By: #### V FPA4 ####[id number] [place] [address] CALCIUM,IONIZED 1.12 mmol/L Normal 1.10 - 1.33 [facility] Comment on above: Performed By: #### V FPA4 ####[id number] [place] [address] Chloride [Moles/Vol] 100 mmol/L Normal 98 - 107 [facility] Comment on above: Performed By: #### V FPA4 ####[id number] [place] [address] FIO2 90 % Normal [facility] Comment on above: Performed By: #### V FPA4 ####[id number] [place] [address] Glucose [Mass/Vol] 179 mg/dL High 74 - 99 [facility] Comment on above: Performed By: #### V FPA4 ####[id number] [place] [address] Hematocrit (Bld) [Volume fraction] 36.0 % Low 41.0 - 52.0 [facility] Comment on above: Performed By: #### V FPA4 ####[id number] [place] [address] Hemoglobin (Bld) [Mass/Vol] 12.1 g/dL Low 13.5 - 17.5 [facility] Comment on above: Performed By: #### V FPA4 ####[id number] [place] [address] Lactate [Moles/Vol] 1.4 mmol/L Normal 0.4 - 2.0 [facility] Comment on above: Performed By: #### V FPA4 ####[id number] [place] [address] OXY HGB 84.4 % High 45.0 - 75.0 [facility] Comment on above: Performed By: #### V FPA4 ####[id number] [place] [address] Oxygen (Bld) [Partial pressure] 56 mm[Hg] High 35 - 45 [facility] Comment on above: Performed By: #### V FPA4 ####[id number] [place] [address] PATIENT TEMPERATURE 37.0 degrees C Normal [facility] Comment on above: Result Comment: NOTE : PATIENT RESULTS ARE NOT CORRECTED FOR TEMPERATURE. Performed By: #### V FPA4 ####[id number] [place] [address] PCO2 62 mmHg High 41 - 51 [facility] Comment on above: Performed By: #### V FPA4 ####[id number] [place] [address] pH (Bld) 7.29 [pH] Low 7.33 - 7.43 [facility] Comment on above: Performed By: #### V FPA4 ####[id number] [place] [address] Potassium [Moles/Vol] 6.0 mmol/L High 3.5 - 5.3 [facility] Comment on above: Performed By: #### V FPA4 ####[id number] [place] [address] SO2 87 % High 45 - 75 [facility] Comment on above: Performed By: #### V FPA4 ####[id number] [place] [address] Sodium [Moles/Vol] 134 mmol/L Low 136 - 145 [facility] Comment on above: Performed By: #### V FPA4 ####[id number] [place] [address] CBCon 08-17-2022 Erythrocyte distribution width (RBC) [Ratio] 13.7 % Normal 11.5 - 14.5 [facility] Comment on above: Performed By: #### C BC ####[id number] [place] [address] Hematocrit (Bld) [Volume fraction] 41.8 % Normal 41.0 - 52.0 [facility] Comment on above: Performed By: #### C BC ####[id number] [place] [address] Hemoglobin (Bld) [Mass/Vol] 12.9 g/dL Low 13.5 - 17.5 [facility] Comment on above: Performed By: #### C BC ####[id number] [place] [address] MCHC (RBC) [Mass/Vol] 30.9 g/dL Low 32.0 - 36.0 [facility] Comment on above: Performed By: #### C BC ####[id number] [place] [address] MCV (RBC) [Entitic vol] 102 fL High 80 - 100 [facility] Comment on above: Performed By: #### C BC ####[id number] [place] [address] NUCLEATED RBC 0.0 /100 WBC Normal 0.0-0.0 [facility] Comment on above: Performed By: #### C BC ####[id number] [place] [address] Platelets (Bld) [#/Vol] 223 10*3/uL Normal 150 - 450 [facility] Comment on above: Performed By: #### C BC ####[id number] [place] [address] RBC 4.11 x10E12/L Low 4.50 - 5.90 [facility] Comment on above: Performed By: #### C BC ####[id number] [place] [address] WBC (Bld) [#/Vol] 10.8 10*3/uL Normal 4.4 - 11.3 [facility] Comment on above: Performed By: #### C BC ####[id number] [place] [address] COAGULATION SCREENon 023 aPTT Coag (Bld) [Time] 57 s High 27 - 38 [facility] Comment on above: Result Comment: Note new reference range as of 08/02/2022 at 10:00am. Performed By: #### C OAGS ####[id number] [place] [address] PT Coag (PPP) [Time] 13.6 s High 9.8 - 12.8 [facility] Comment on above: Result Comment: Note new reference range as of 08/02/2022 at 10:00am. Performed By: #### C OAGS ####[id number] [place] [address] PT, INR 1.2 High 0.9 - 1.1 [facility] Comment on above: Performed By: #### C OAGS ####[id number] [place] [address] Clinical Event Note-cardiac surgeryon 08-17-2022 Clinical Event Note-cardiac surgery Normal [facility] Consult-Supportive Oncologyo n 08-17-2022 Consult-Supportive Oncology Normal [facility] Daily Progress Note-Cardiolo gyon 08-17-2022 Daily Progress Note-Cardiology Normal [facility] HEPARIN ASSAY,UFHon 08-18-19 23 HEPARIN ASSAY,UFH 0.3 IU/mL Normal [facility] Comment on above: Result Comment: The therapeutic reference range for UFH may be either 0.3-0.6 IU/mL or 0.3-0.7 IU/mL based on the clinical setting for anticoagulant therapy and the associated nomogram used. For heparin dosing guidelines based on clinical scenario and Heparin Assay results, please refer to local Pharmacy and the [facility] Guidelines for Anticoagulation therapy available on the [facility] intranet at:[email or web address]_[email or web address] Performed By: #### H AUF ####[id number] [place] [address] MAGNESIUMon 08-17-2022 Magnesium [Mass/Vol] 2.30 mg/dL Normal 1.60 - 2.40 [facility] Comment on above: Performed By: #### M G ####[id number] [place] [address] PLATELETSon 08-17-2022 PLATELETS ORDER RECD Normal [facility] Comment on above: Result Comment: If t his patient is Rh Negative and if the Plateletproduct transfused is Rh Positive, review the useof WinRho Prophylaxis for this patient. Performed By: #### P LT ####[id number] [place] [address] Preop Checkliston 08-17-2022 Preop Checklist Normal [facility] RENAL FUNCTION PANELon 08-17 Albumin [Mass/Vol] 3.0 g/dL Low 3.4 - 5.0 [facility] Comment on above: Performed By: #### R ENAL ####[id number] [place] [address] Anion gap [Moles/Vol] 12 mmol/L Normal 10 - 20 [facility] Comment on above: Performed By: #### R ENAL ####[id number] [place] [address] Calcium [Mass/Vol] 8.9 mg/dL Normal 8.6 - 10.6 [facility] Comment on above: Performed By: #### R ENAL ####[id number] [place] [address] Chloride [Moles/Vol] 98 mmol/L Normal 98 - 107 [facility] Comment on above: Performed By: #### R ENAL ####[id number] [place] [address] Creatinine [Mass/Vol] 1.52 mg/dL High 0.50 - 1.30 [facility] Comment on above: Performed By: #### R ENAL ####[id number] [place] [address] GFR/1.73 sq M.predicted among non-blacks MDRD (S/P/Bld) [Vol rate/Area] 58 mL/min/{1.73_m2} Abnormal >90 [facility] Comment on above: Result Comment: CALC ULATIONS OF ESTIMATED GFR ARE PERFORMED USING THE 2020 CKD-EPI STUDY REFIT EQUATION WITHOUT THE RACE VARIABLE FOR THE IDMS-TRACEABLE CREATININE METHODS.https://jasn.asnjournals.org/content//A SN.3517559897 Performed By: #### R ENAL ####[id number] [place] [address] Glucose [Mass/Vol] 104 mg/dL High 74 - 99 [facility] Comment on above: Performed By: #### R ENAL ####[id number] [place] [address] HCO3 (Bld) [Moles/Vol] 32 mmol/L Normal 21 - 32 [facility] Comment on above: Performed By: #### R ENAL ####[id number] [place] [address] Phosphate [Mass/Vol] 5.4 mg/dL High 2.5 - 4.9 [facility] Comment on above: Result Comment: The performance characteristics of phosphorus testing in heparinized plasma have been validated by the individual laboratory site where testing is performed. Testing on heparinized plasma is not approved by the FDA; however, such approval is not necessary. Performed By: #### R ENAL ####[id number] [place] [address] Potassium [Moles/Vol] 4.4 mmol/L Normal 3.5 - 5.3 [facility] Comment on above: Performed By: #### R ENAL ####[id number] [place] [address] Sodium [Moles/Vol] 138 mmol/L Normal 136 - 145 [facility] Comment on above: Performed By: #### R ENAL ####[id number] [place] [address] Urea nitrogen [Mass/Vol] 21 mg/dL Normal 6 - 23 [facility] Comment on above: Performed By: #### R ENAL ####[id number] [place] [address], [place] REQUEST-LEUKOREDUCED RED WINSTON LSon 08-17-2022 REQUEST-LEUKOREDUCED RED CELLS ORDER RECD Normal [facility] Comment on above: Performed By: #### O PIPE JEEPER ####[id number], [place] Rapid Response Nurse Noteon 08-17-2022 Rapid Response Nurse Note Normal [facility] Rehab Note-physical therapy assistanton 08-17-2022 Rehab Note-geophysical observer Normal [facility] TYPE + SCREENon 08-17-2022 ABO TYPE O Normal [facility] Comment on above: Performed By: #### T +S ####[id number], [place] RH TYPE Positive Normal [facility] Comment on above: Performed By: #### T +S ####[id number] [place] [address] CBCon 08-16-2022 Erythrocyte distribution width (RBC) [Ratio] 13.9 % Normal 11.5 - 14.5 [facility] Comment on above: Performed By: #### C BC ####[id number] [place] [address] Hematocrit (Bld) [Volume fraction] 43.4 % Normal 41.0 - 52.0 [facility] Comment on above: Performed By: #### C BC ####[id number] [place] [address] Hemoglobin (Bld) [Mass/Vol] 13.3 g/dL Low 13.5 - 17.5 [facility] Comment on above: Performed By: #### C BC ####[id number] MCHC (RBC) [Mass/Vol] 30.6 g/dL Low 32.0 - 36.0 [facility] Comment on above: Performed By: #### C BC ####[id number] [place] [address] MCV (RBC) [Entitic vol] 103 fL High 80 - 100 [facility] Comment on above: Performed By: #### C BC ####[id number] [place] [address] NUCLEATED RBC 0.0 /100 WBC Normal 0.0-0.0 [facility] Comment on above: Performed By: #### C BC ####[id number] [place] [address] Platelets (Bld) [#/Vol] 224 10*3/uL Normal 150 - 450 [facility] Comment on above: Performed By: #### C BC ####[id number] [place] [address] RBC 4.23 x10E12/L Low 4.50 - 5.90 [facility] Comment on above: Performed By: #### C BC ####[id number] [place] [address] WBC (Bld) [#/Vol] 10.5 10*3/uL Normal 4.4 - 11.3 [facility] Comment on above: Performed By: #### C BC ####[id number] [place] [address] CORONAVIRUS 2019, SCREEN ASY MPTOMATICon 08-16-2022 SARS-CoV-2 (COVID-19) RNA GILMAR+probe Ql (Unsp spec) Not detected Normal Not Detected [facility] Comment on above: Result Comment: .Thi s assay is designed to detect the ORF1ab and/or S genes of SARS-CoV-2 vianucleic acid amplification. A Not Detected result does not [id number] infection since the adequacy of sample collection and/or low viralburden may result in presence of viral nucleic acids below the clinicalsensitivity of this test method.Fact sheet for providers: www.fda.gov/media/600991/downloadFact sheet for patients: www.fda.gov/media/558676/downloadThis test has received FDA Emergency Use Authorization (EUA) and has beenverified by [facility] ([facility]). This testis only authorized for the duration of time that circumstances exist tojustify the authorization of the emergency use of in vitro diagnostic testsfor the detection of SARS-CoV-2 virus and/or diagnosis of COVID-19 infectionunder section 564(b)(1) of the Act, 21 U.S.C. 360bbb-3(b)(1), unless theauthorization is terminated or revoked sooner.[facility] is certified under CLIA-88 asqualified to perform high complexity testing. Testing is performed in the[facility] laboratories located at [address] [place] [address]. Performed By: #### C OVSC ####[id number] [place] [address] Lab Specimen Source Nasal, Nasopharyngeal [facility] Comment on above: Performed By: #### C OVSC ####[id number] [facility] [place] [address] Clinical Event Note-Cardiac surgery - OR dateon 08-16-2022 Clinical Event Note-Cardiac surgery - OR date Normal [facility] Covid 19 Resultson 3 SARS-CoV-2 (COVID-19) RNA GILMAR+probe Ql (Unsp spec) Normal [facility] Daily Progress Note-Cardiolo gyon 08-16-2022 Daily Progress Note-Cardiology [facility] HEPARIN ASSAY,UFHon 08-17-19 23 HEPARIN ASSAY,UFH 0.3 IU/mL Normal [facility] Comment on above: Result Comment: The therapeutic reference range for UFH may be either 0.3-0.6 IU/mL or 0.3-0.7 IU/mL based on the clinical setting for anticoagulant therapy and the associated nomogram used. For heparin dosing guidelines based on clinical scenario and Heparin Assay results, please refer to local Pharmacy and the [facility] Guidelines for Anticoagulation therapy available on the [facility] intranet at:[email or web address]_[email or web address] Performed By: #### H AUF ####[id number] [place] [address] HEPARIN ASSAY,UFH 0.3 IU/mL Normal [facility] Comment on above: Result Comment: The therapeutic reference range for UFH may be either 0.3-0.6 IU/mL or 0.3-0.7 IU/mL based on the clinical setting for anticoagulant therapy and the associated nomogram used. For heparin dosing guidelines based on clinical scenario and Heparin Assay results, please refer to local Pharmacy and the [facility] Guidelines for Anticoagulation therapy available on the [facility] intranet at:[email or web address]_Guidelines_[email or web address].aspx Performed By: #### H AUF ####[id number] [place] [address] MAGNESIUMon 08-16-2022 Magnesium [Mass/Vol] 1.91 mg/dL Normal 1.60 - 2.40 [facility] Comment on above: Performed By: #### M G ####[id number] [place] [address] RENAL FUNCTION PANELon 08-16 Albumin [Mass/Vol] 3.1 g/dL Low 3.4 - 5.0 [facility] Comment on above: Performed By: #### R ENAL ####[id number] [place] [address] Anion gap [Moles/Vol] 16 mmol/L Normal 10 - 20 [facility] Comment on above: Performed By: #### R ENAL ####[id number] [place] [address] Calcium [Mass/Vol] 8.8 mg/dL Normal 8.6 - 10.6 [facility] Comment on above: Performed By: #### R ENAL ####[id number] [place] [address] Chloride [Moles/Vol] 98 mmol/L Normal 98 - 107 [facility] Comment on above: Performed By: #### R ENAL ####[id number] [place] [address] Creatinine [Mass/Vol] 1.47 mg/dL High 0.50 - 1.30 [facility] Comment on above: Performed By: #### R ENAL ####[id number] [place] [address] GFR/1.73 sq M.predicted among non-blacks MDRD (S/P/Bld) [Vol rate/Area] 60 mL/min/{1.73_m2} Normal >90 [facility] Comment on above: Result Comment: CALC ULATIONS OF ESTIMATED GFR ARE PERFORMED USING THE 2020 CKD-EPI STUDY REFIT EQUATION WITHOUT THE RACE VARIABLE FOR THE IDMS-TRACEABLE CREATININE METHODS.https://jasn.asnjournals.org/content/early//A SN.1104683270 Performed By: #### R ENAL ####[id number] [place] [address] Glucose [Mass/Vol] 174 mg/dL High 74 - 99 [facility] Comment on above: Performed By: #### R ENAL ####[id number] [place] [address] HCO3 (Bld) [Moles/Vol] 30 mmol/L Normal 21 - 32 [facility] Comment on above: Performed By: #### R ENAL ####[id number] [place] [address] Phosphate [Mass/Vol] 4.5 mg/dL Normal 2.5 - 4.9 [facility] Comment on above: Result Comment: The performance characteristics of phosphorus testing in heparinized plasma have been validated by the individual laboratory site where testing is performed. Testing on heparinized plasma is not approved by the FDA; however, such approval is not necessary. Performed By: #### R ENAL ####[id number] [place] [address] Potassium [Moles/Vol] 5.2 mmol/L Normal 3.5 - 5.3 [facility] Comment on above: Performed By: #### R ENAL ####[id number] [place] [address] Sodium [Moles/Vol] 139 mmol/L Normal 136 - 145 [facility] Comment on above: Performed By: #### R ENAL ####[id number] [place] [address] Urea nitrogen [Mass/Vol] 20 mg/dL Normal 6 - 23 [facility] Comment on above: Performed By: #### R ENAL ####[id number] [place] [address] REQUEST-LEUKOREDUCED RED WINSTON LSon 08-16-2022 REQUEST-LEUKOREDUCED RED CELLS ORDER RECD Normal [facility] Comment on above: Performed By: #### O PIPE JEEPER ####[id number] [place] [address] STAPH/MRSA SCREENon 08-17-19 23 STAPH/MRSA SCREEN Normal [facility] Comment on above: Performed By: #### S TAPH ####[id number], [place] TH CHEST 1 VIEWon 08-16-2022 TH CHEST 1 VIEW Normal [facility] THYROXINE,FREEon 08-16-2022 THYROXINE,FREE 0.95 ng/dL Normal 0.78 - 1.48 [facility] Comment on above: Result Comment: Thyr oxine Free testing is performed using different testing methodology at [facility] than at [facility]. Direct result comparisons should only be made within the same method. Performed By: #### T 4FRE ####[id number], [place] TSHon 08-16-2022 TSH Qn 7.31 m[IU]/L High 0.44 - 3.98 [facility] Comment on above: Result Comment: TSH testing is performed using different testing methodology at [facility] than at [facility]. Direct result comparisons should only be made within the same method. Performed By: #### T SH2 ####[id number] [place] [address] TYPE + SCREENon 08-16-2022 ABO TYPE O [facility] Comment on above: Performed By: #### T +S ####[id number] [place] [address] RH TYPE Positive Normal [facility] Comment on above: Performed By: #### T +S ####[id number] [place] [address] URINALYSIS WITH CULTURE IF I NDICATEDon 08-16-2022 Appearance (U) CLEAR Normal CLEAR [facility] Comment on above: Performed By: #### U ARFX ####[id number] [place] [address] Bilirubin Ql (U) Negative Normal NEGATIVE [facility] Comment on above: Performed By: #### U ARFX ####[id number] [place] [address] Color (U) YELLOW Normal STRAW,YELLOW [facility] Comment on above: Performed By: #### U ARFX ####[id number] [place] [address] Glucose Ql (U) Negative Normal NEGATIVE [facility] Comment on above: Performed By: #### U ARFX ####[id number] [place] [address] Hemoglobin Ql (U) Negative Normal NEGATIVE [facility] Comment on above: Performed By: #### U ARFX ####[id number] [place] [address] Ketones Ql (U) Negative Normal NEGATIVE [facility] Comment on above: Performed By: #### U ARFX ####[id number] [place] [address] Leukocyte esterase Test strip Ql (U) Negative Normal NEGATIVE [facility] Comment on above: Performed By: #### U ARFX ####[id number] [place] [address] Nitrite Ql (U) Negative Normal NEGATIVE [facility] Comment on above: Performed By: #### U ARFX ####[id number] [place] [address] pH (U) 7.0 [pH] Normal 5.0 - 8.0 [facility] Comment on above: Performed By: #### U ARFX ####[id number] [place] [address] Protein Ql (U) Negative Normal NEGATIVE [facility] Comment on above: Performed By: #### U ARFX ####[id number] [place] [address] Specific gravity (U) [Rel density] 1.017 Normal 1.005 - 1.035 [facility] Comment on above: Performed By: #### U ARFX ####[id number] [place] [address] Urobilinogen (U) [Mass/Vol] mg/dL Normal 0.0 - 1.9 [facility] Comment on above: Performed By: #### U ARFX ####[id number] [place] [address] CBCon 08-15-2022 Erythrocyte distribution width (RBC) [Ratio] 13.5 % Normal 11.5 - 14.5 [facility] Comment on above: Performed By: #### C BC ####[id number] [place] [address] Hematocrit (Bld) [Volume fraction] 41.2 % Normal 41.0 - 52.0 [facility] Comment on above: Performed By: #### C BC ####[id number] [place] [address] Hemoglobin (Bld) [Mass/Vol] 12.9 g/dL Low 13.5 - 17.5 [facility] Comment on above: Performed By: #### C BC ####[id number] [place] [address] MCHC (RBC) [Mass/Vol] 31.3 g/dL Low 32.0 - 36.0 [facility] Comment on above: Performed By: #### C BC ####[id number] [place] [address] MCV (RBC) [Entitic vol] 101 fL High 80 - 100 [facility] Comment on above: Performed By: #### C BC ####[id number] [place] [address] NUCLEATED RBC 0.0 /100 WBC Normal 0.0-0.0 [facility] Comment on above: Performed By: #### C BC ####[id number] [place] [address] Platelets (Bld) [#/Vol] 227 10*3/uL Normal 150 - 450 [facility] Comment on above: Performed By: #### C BC ####[id number] [place] [address] RBC 4.09 x10E12/L Low 4.50 - 5.90 [facility] Comment on above: Performed By: #### C BC ####[id number] [place] [address] WBC (Bld) [#/Vol] 11.5 10*3/uL High 4.4 - 11.3 [facility] Comment on above: Performed By: #### C BC ####[id number] [place] [address] Clinical Event Note-Cardiac Surgery Updateon 08-15-2022 Clinical Event Note-Cardiac Surgery Update Normal [facility] Clinical Event Note-s/p LHCo n 08-15-2022 Clinical Event Note-s/p LHC [facility] Consult-Supportive Oncologyo n 08-15-2022 Consult-Supportive Oncology Normal [facility] Daily Progress Note-Cardiolo gyon 08-15-2022 Daily Progress Note-Cardiology [facility] ELECTROLYTE, URINE SPOTon OSMOLALITY,URINE SPOT 392 mOsm/kg Normal 200 - 1200 [facility] Comment on above: Performed By: #### E LCS2 ####[id number] [place] [address] CHLORIDE,URINE SPOT 38 mmol/L Normal Not Established [facility] Comment on above: Performed By: #### E LCS2 ####[id number] [place] [address] CHLORIDE/CREAT RATIO 36 mmol/g Creat Normal 23 - 275 [facility] Comment on above: Performed By: #### E LCS2 ####[id number] [place] [address] CREATININE,URINE 107.0 mg/dL Normal 20.0 - 370.0 [facility] Comment on above: Performed By: #### E LCS2 ####[id number] [place] [address] POT/CREAT RATIO 46 mmol/g Creat Normal Not Established [facility] Comment on above: Performed By: #### E LCS2 ####[id number] [place] [address] POTASSIUM,URINE SPOT 49 mmol/L Normal Not Established [facility] Comment on above: Performed By: #### E LCS2 ####[id number] [place] [address] Sodium (U) [Moles/Vol] 46 mmol/L Normal Not Established [facility] Comment on above: Performed By: #### E LCS2 ####[id number] [place] [address] SODIUM/CREAT RATIO 43 mmol/g Creat Normal Not Established [facility] Comment on above: Performed By: #### E LCS2 ####[id number] [place] [address] UREA NITROGEN,URINE 517 mg/dL Normal Not Established [facility] Comment on above: Performed By: #### E LCS2 ####[id number] [place] [address] UREA NITROGEN/CREAT RATIO 4.8 g/g Creat Normal Not Established [facility] Comment on above: Performed By: #### E LCS2 ####[id number] [place] [address] HEPARIN ASSAY,UFHon 08-16-19 HEPARIN ASSAY,UFH Canceled Normal [facility] Comment on above: Order Comment: TEST HEPARIN [...] please refer to local Pharmacy and the [facility] Guidelines for Anticoagulation therapy available on the [facility] intranet at:[email or web address]_Guidelines_[email or web address].aspx Performed By: #### H AUF ####[id number] [place] [address] HEPARIN ASSAY,UFH 1.2 IU/mL Critically abnormal [facility] Comment on above: Order Comment: HAUF REPORTED TO MORGAN CHRISTIAN, 08/15/2022 08:31 Result Comment: The therapeutic reference range for UFH may be either 0.3-0.6 IU/mL or 0.3-0.7 IU/mL based on the clinical setting for anticoagulant therapy and the associated nomogram used. For heparin dosing guidelines based on clinical scenario and Heparin Assay results, please refer to [facility] and the [facility] Guidelines for Anticoagulation therapy available on the [facility] intranet at:[email or web address]_Guidelines_[email or web address] REPORTED TO MORGAN CHRISTIAN, 08/15/2022 08:31 Performed By: #### H AUF ####[id number] [place] [address] HEPARIN ASSAY,UFH Canceled Normal [facility] Comment on above: Order Comment: TEST HEPARIN ASSAY,UFH WAS CANCELLED, 08/15/2022 06:23 QNS, RESUBMIT. Result Comment: The therapeutic reference range for UFH may be either 0.3-0.6 IU/mL or 0.3-0.7 IU/mL based on the clinical setting for anticoagulant therapy and the associated nomogram used. For heparin dosing guidelines based on clinical scenario and Heparin Assay results, please refer to local Pharmacy and the [facility] Guidelines for Anticoagulation therapy available on the [facility] intranet at:[email or web address]_Guidelines_[email or web address].aspx Performed By: #### H AUF ####[id number] [place] [address] Left Heart Catheterizationon 08-15-2022 Left Heart Catheterization Normal [facility] MAGNESIUMon 08-15-2022 Magnesium [Mass/Vol] 1.91 mg/dL Normal 1.60 - 2.40 [facility] Comment on above: Performed By: #### M G ####[id number] [place] [address] PLATELETSon 08-15-2022 PLATELETS ORDER RECD Normal [facility] Comment on above: Result Comment: If t his patient is Rh Negative and if the Plateletproduct transfused is Rh Positive, review the useof WinRho Prophylaxis for this patient. Performed By: #### P LT ####[id number] [place] [address] RENAL FUNCTION PANELon 08-15 Albumin [Mass/Vol] 3.1 g/dL Low 3.4 - 5.0 [facility] Comment on above: Performed By: #### R ENAL ####[id number] [place] [address] Anion gap [Moles/Vol] 12 mmol/L Normal 10 - 20 [facility] Comment on above: Performed By: #### R ENAL ####[id number] [place] [address] Calcium [Mass/Vol] 8.8 mg/dL Normal 8.6 - 10.6 [facility] Comment on above: Performed By: #### R ENAL ####[id number] [place] [address] Chloride [Moles/Vol] 101 mmol/L Normal 98 - 107 [facility] Comment on above: Performed By: #### R ENAL ####[id number] [place] [address] Creatinine [Mass/Vol] 1.44 mg/dL High 0.50 - 1.30 [facility] Comment on above: Performed By: #### R ENAL ####[id number] [place] [address] GFR/1.73 sq M.predicted among non-blacks MDRD (S/P/Bld) [Vol rate/Area] 62 mL/min/{1.73_m2} Normal >90 [facility] Comment on above: Result Comment: CALC ULATIONS OF ESTIMATED GFR ARE PERFORMED USING THE 2020 CKD-EPI STUDY REFIT EQUATION WITHOUT THE RACE VARIABLE FOR THE IDMS-TRACEABLE CREATININE METHODS.https://jasn.asnjournals.org/content//A SN.8144586941 Performed By: #### R ENAL ####[id number] [place] [address] Glucose [Mass/Vol] 104 mg/dL High 74 - 99 [facility] Comment on above: Performed By: #### R ENAL ####[id number] [place] [address] HCO3 (Bld) [Moles/Vol] 33 mmol/L High 21 - 32 [facility] Comment on above: Performed By: #### R ENAL ####[id number] [place] [address] Phosphate [Mass/Vol] 4.8 mg/dL Normal 2.5 - 4.9 [facility] Comment on above: Result Comment: The performance characteristics of phosphorus testing in heparinized plasma have been validated by the individual laboratory site where testing is performed. Testing on heparinized plasma is not approved by the FDA; however, such approval is not necessary. Performed By: #### R ENAL ####[id number] [place] [address] Potassium [Moles/Vol] 4.7 mmol/L Normal 3.5 - 5.3 [facility] Comment on above: Performed By: #### R ENAL ####[id number] [place] [address] Sodium [Moles/Vol] 141 mmol/L Normal 136 - 145 [facility] Comment on above: Performed By: #### R ENAL ####[id number] [place] [address] Urea nitrogen [Mass/Vol] 18 mg/dL Normal 6 - 23 [facility] Comment on above: Performed By: #### R ENAL ####[id number] [address], [place] REQUEST-LEUKOREDUCED RED WINSTON LSon 08-15-2022 REQUEST-LEUKOREDUCED RED CELLS ORDER RECD Normal [facility] Comment on above: Performed By: #### O PIPE JEEPER ####[id number], [place] MRI CARDIAC W/WO CONTRAST FOR MORPH/FUNCT AND VALVE DZon 08-15-2022 TH MRI CARDIAC W/WO CONTRAST FOR MORPH/FUNCT AND VALVE DZ Normal [facility] CBCon 08-14-2022 Erythrocyte distribution width (RBC) [Ratio] 13.6 % Normal 11.5 - 14.5 [facility] Comment on above: Performed By: #### C BC ####[id number], [place] Hematocrit (Bld) [Volume fraction] 42.6 % Normal 41.0 - 52.0 [facility] Comment on above: Performed By: #### C BC ####[id number] [place] [address] Hemoglobin (Bld) [Mass/Vol] 13.3 g/dL Low 13.5 - 17.5 [facility] Comment on above: Performed By: #### C BC ####[id number] [place] [address] MCHC (RBC) [Mass/Vol] 31.2 g/dL Low 32.0 - 36.0 [facility] Comment on above: Performed By: #### C BC ####[id number] [place] [address] MCV (RBC) [Entitic vol] 101 fL High 80 - 100 [facility] Comment on above: Performed By: #### C BC ####[id number] [place] [address] NUCLEATED RBC 0.0 /100 WBC Normal 0.0-0.0 [facility] Comment on above: Performed By: #### C BC ####[id number] [place] [address] Platelets (Bld) [#/Vol] 246 10*3/uL Normal 150 - 450 [facility] Comment on above: Performed By: #### C BC ####[id number] [place] [address] RBC 4.20 x10E12/L Low 4.50 - 5.90 [facility] Comment on above: Performed By: #### C BC ####[id number] [place] [address] WBC (Bld) [#/Vol] 12.5 10*3/uL High 4.4 - 11.3 [facility] Comment on above: Performed By: #### C BC ####[id number] [place] [address] Daily Progress Note-Cardiolo gyon 08-14-2022 Daily Progress Note-Cardiology Normal [facility] EMR ADDONon 08-14-2022 ADDON CONFIRMATION REQUEST REC'D Normal [facility] Comment on above: Performed By: #### E MRAD ####NO LOCATION NEEDED ADDON CONFIRMATION REQUEST REC'D Normal [facility] Comment on above: Performed By: #### E MRAD ####NO LOCATION NEEDED FOLATE, SERUMon 08-14-2022 Folate [Mass/Vol] 9.0 ng/mL Normal >5.0 [facility] Comment on above: Result Comment: Low <3.4Borderline 3.4-5.0Normal >5.0. Biotin interference may cause falsely elevated results. Patients taking a Biotin dose of up to 5 mg/day should refrain from taking Biotin for 24 hours before sample collection. Providers may contact their local laboratory for further information. Performed By: #### F OLA2 ####[id number] [place] [address] HEPARIN ASSAY,UFHon 08-15-19 23 HEPARIN ASSAY,UFH 0.3 IU/mL Normal [facility] Comment on above: Result Comment: The therapeutic reference range for UFH may be either 0.3-0.6 IU/mL or 0.3-0.7 IU/mL based on the clinical setting for anticoagulant therapy and the associated nomogram used. For heparin dosing guidelines based on clinical scenario and Heparin Assay results, please refer to local Pharmacy and the [facility] Guidelines for Anticoagulation therapy available on the [facility] intranet at:[email or web address]_Guidelines_[email or web address] Performed By: #### H AUF ####[id number] [place] [address] MAGNESIUMon 08-14-2022 Magnesium [Mass/Vol] 1.80 mg/dL Normal 1.60 - 2.40 [facility] Comment on above: Performed By: #### M G ####[id number] [place] [address] RENAL FUNCTION PANELon 08-14 Albumin [Mass/Vol] 2.8 g/dL Low 3.4 - 5.0 [facility] Comment on above: Performed By: #### R ENAL ####[id number] [place] [address] Anion gap [Moles/Vol] 14 mmol/L Normal 10 - 20 [facility] Comment on above: Performed By: #### R ENAL ####[id number] [place] [address] Calcium [Mass/Vol] 8.5 mg/dL Low 8.6 - 10.6 [facility] Comment on above: Performed By: #### R ENAL ####[id number] [place] [address] Chloride [Moles/Vol] 98 mmol/L Normal 98 - 107 [facility] Comment on above: Performed By: #### R ENAL ####[id number] [place] [address] Creatinine [Mass/Vol] 1.41 mg/dL High 0.50 - 1.30 [facility] Comment on above: Performed By: #### R ENAL ####[id number] [place] [address] GFR/1.73 sq M.predicted among non-blacks MDRD (S/P/Bld) [Vol rate/Area] 63 mL/min/{1.73_m2} Normal >90 [facility] Comment on above: Result Comment: CALC ULATIONS OF ESTIMATED GFR ARE PERFORMED USING THE 2020 CKD-EPI STUDY REFIT EQUATION WITHOUT THE RACE VARIABLE FOR THE IDMS-TRACEABLE CREATININE METHODS.https://jasn.asnjournals.org/content//A SN.4943803514 Performed By: #### R ENAL ####[id number] [place] [address] Glucose [Mass/Vol] 99 mg/dL Normal 74 - 99 [facility] Comment on above: Performed By: #### R ENAL ####[id number] [place] [address] HCO3 (Bld) [Moles/Vol] 33 mmol/L High 21 - 32 [facility] Comment on above: Performed By: #### R ENAL ####[id number] [place] [address] Phosphate [Mass/Vol] 4.6 mg/dL Normal 2.5 - 4.9 [facility] Comment on above: Result Comment: The performance characteristics of phosphorus testing in heparinized plasma have been validated by the individual laboratory site where testing is performed. Testing on heparinized plasma is not approved by the FDA; however, such approval is not necessary. Performed By: #### R ENAL ####[id number] [place] [address] Potassium [Moles/Vol] 4.5 mmol/L Normal 3.5 - 5.3 [facility] Comment on above: Performed By: #### R ENAL ####[id number] [place] [address] Sodium [Moles/Vol] 140 mmol/L Normal 136 - 145 [facility] Comment on above: Performed By: #### R ENAL ####[id number] [place] [address] Urea nitrogen [Mass/Vol] 21 mg/dL Normal 6 - 23 [facility] Comment on above: Performed By: #### R ENAL ####[id number] [place] [address] VITAMIN B12on 08-14-2022 Cobalamin (Vitamin B12) [Mass/Vol] 501 pg/mL Normal 211 - 911 [facility] Comment on above: Performed By: #### V TB12 ####[id number] [place] [address] CBC AND DIFFERENTIALon 08-13 % AUTOMATED IMMATURE GRAN 1.8 % High 0.0 - 0.9 [facility] Comment on above: Result Comment: Nicki ture Granulocyte Count (IG) includes promyelocytes, myelocytes and metamyelocytes but does not include bands. Percent differential counts (%) should be interpreted in the context of the absolute cell counts (cells/L). Performed By: #### C BCDF ####[id number] [place] [address] Basophils (Bld) [#/Vol] 0.06 10*3/uL Normal 0.00 - 0.10 [facility] Comment on above: Performed By: #### C BCDF ####[id number] [place] [address] Basophils/100 WBC (Bld) 0.5 % Normal 0.0 - 2.0 [facility] Comment on above: Performed By: #### C BCDF ####[id number] [place] [address] Eosinophils (Bld) [#/Vol] 0.21 10*3/uL Normal 0.00 - 0.70 [facility] Comment on above: Performed By: #### C BCDF ####[id number] [place] [address] Eosinophils/100 WBC (Bld) 1.7 % Normal 0.0 - 6.0 [facility] Comment on above: Performed By: #### C BCDF ####[id number] [place] [address] Erythrocyte distribution width (RBC) [Ratio] 13.7 % Normal 11.5 - 14.5 [facility] Comment on above: Performed By: #### C BCDF ####[id number] [place] [address] Hematocrit (Bld) [Volume fraction] 43.7 % Normal 41.0 - 52.0 [facility] Comment on above: Performed By: #### C BCDF ####[id number] [place] [address] Hemoglobin (Bld) [Mass/Vol] 13.5 g/dL Normal 13.5 - 17.5 [facility] Comment on above: Performed By: #### C BCDF ####[id number] [place] [address] Lymphocytes (Bld) [#/Vol] 1.53 10*3/uL Normal 1.20 - 4.80 [facility] Comment on above: Performed By: #### C BCDF ####[id number] [place] [address] Lymphocytes/100 WBC (Bld) 12.3 % Normal 13.0 - 44.0 [facility] Comment on above: Performed By: #### C BCDF ####[id number] [place] [address] MCHC (RBC) [Mass/Vol] 30.9 g/dL Low 32.0 - 36.0 [facility] Comment on above: Performed By: #### C BCDF ####[id number] [place] [address] MCV (RBC) [Entitic vol] 101 fL High 80 - 100 [facility] Comment on above: Performed By: #### C BCDF ####[id number] [place] [address] Monocytes (Bld) [#/Vol] 0.90 10*3/uL Normal 0.10 - 1.00 [facility] Comment on above: Performed By: #### C BCDF ####[id number] [place] [address] Monocytes/100 WBC (Bld) 7.2 % Normal 2.0 - 10.0 [facility] Comment on above: Performed By: #### C BCDF ####[id number] [place] [address] Neutrophils (Bld) [#/Vol] 9.50 10*3/uL High 1.20 - 7.70 [facility] Comment on above: Performed By: #### C BCDF ####[id number] [place] [address] Neutrophils/100 WBC (Bld) 76.5 % Normal 40.0 - 80.0 [facility] Comment on above: Performed By: #### C BCDF ####[id number] [place] [address] NUCLEATED RBC 0.0 /100 WBC Normal 0.0-0.0 [facility] Comment on above: Performed By: #### C BCDF ####[id number] [place] [address] Platelets (Bld) [#/Vol] 250 10*3/uL Normal 150 - 450 [facility] Comment on above: Performed By: #### C BCDF ####[id number] [place] [address] RBC 4.34 x10E12/L Low 4.50 - 5.90 [facility] Comment on above: Performed By: #### C BCDF ####[id number] [place] [address] WBC (Bld) [#/Vol] 12.4 10*3/uL High 4.4 - 11.3 [facility] Comment on above: Performed By: #### C BCDF ####[id number] [place] [address] % AUTOMATED IMMATURE GRAN Canceled Normal [facility] Comment on above: Order Comment: TEST CBC AND DIFFERENTIAL WAS CANCELLED, 08/13/2022 09:39 DUPLICATE ORDER. Result Comment: Nicki ture Granulocyte Count (IG) includes promyelocytes, myelocytes and metamyelocytes but does not include bands. Percent differential counts (%) should be interpreted in the context of the absolute cell counts (cells/L). Performed By: #### C BCDF ####[id number] [place] [address] % BASOPHIL Canceled Normal [facility] Comment on above: Order Comment: TEST CBC AND DIFFERENTIAL WAS CANCELLED, 08/13/2022 09:39 DUPLICATE ORDER. Performed By: #### C BCDF ####[id number] [place] [address] % EOSINOPHIL Canceled Normal [facility] Comment on above: Order Comment: TEST CBC AND DIFFERENTIAL WAS CANCELLED, 08/13/2022 09:39 DUPLICATE ORDER. Performed By: #### C BCDF ####[id number] [place] [address] % LYMPHOCYTE Canceled Normal [facility] Comment on above: Order Comment: TEST CBC AND DIFFERENTIAL WAS CANCELLED, 08/13/2022 09:39 DUPLICATE ORDER. Performed By: #### C BCDF ####[id number] [place] [address] % MONOCYTE Canceled Normal [facility] Comment on above: Order Comment: TEST CBC AND DIFFERENTIAL WAS CANCELLED, 08/13/2022 09:39 DUPLICATE ORDER. Performed By: #### C BCDF ####[id number] [place] [address] % NEUTROPHIL Canceled Normal [facility] Comment on above: Order Comment: TEST CBC AND DIFFERENTIAL WAS CANCELLED, 08/13/2022 09:39 DUPLICATE ORDER. Performed By: #### C BCDF ####[id number] [place] [address] BASOPHIL Canceled Normal [facility] Comment on above: Order Comment: TEST CBC AND DIFFERENTIAL WAS CANCELLED, 08/13/2022 09:39 DUPLICATE ORDER. Performed By: #### C BCDF ####[id number] [place] [address] DIFFERENTIAL Canceled Normal [facility] Comment on above: Order Comment: TEST CBC AND DIFFERENTIAL WAS CANCELLED, 08/13/2022 09:39 DUPLICATE ORDER. Performed By: #### C BCDF ####[id number] [place] [address] EOSINOPHIL Canceled Normal [facility] Comment on above: Order Comment: TEST CBC AND DIFFERENTIAL WAS CANCELLED, 08/13/2022 09:39 DUPLICATE ORDER. Performed By: #### C BCDF ####[id number] [place] [address] HCT Canceled Normal [facility] Comment on above: Order Comment: TEST CBC AND DIFFERENTIAL WAS CANCELLED, 08/13/2022 09:39 DUPLICATE ORDER. Performed By: #### C BCDF ####[id number] [place] [address] HGB Canceled Normal [facility] Comment on above: Order Comment: TEST CBC AND DIFFERENTIAL WAS CANCELLED, 08/13/2022 09:39 DUPLICATE ORDER. Performed By: #### C BCDF ####[id number] [place] [address] LYMPHOCYTE Canceled Normal [facility] Comment on above: Order Comment: TEST CBC AND DIFFERENTIAL WAS CANCELLED, 08/13/2022 09:39 DUPLICATE ORDER. Performed By: #### C BCDF ####[id number] [place] [address] MCHC Canceled Normal [facility] Comment on above: Order Comment: TEST CBC AND DIFFERENTIAL WAS CANCELLED, 08/13/2022 09:39 DUPLICATE ORDER. Performed By: #### C BCDF ####[id number] [place] [address] MCV Canceled Normal [facility] Comment on above: Order Comment: TEST CBC AND DIFFERENTIAL WAS CANCELLED, 08/13/2022 09:39 DUPLICATE ORDER. Performed By: #### C BCDF ####[id number] [place] [address] MONOCYTE Canceled Normal [facility] Comment on above: Order Comment: TEST CBC AND DIFFERENTIAL WAS CANCELLED, 08/13/2022 09:39 DUPLICATE ORDER. Performed By: #### C BCDF ####[id number] [place] [address] NEUTROPHIL Canceled Normal [facility] Comment on above: Order Comment: TEST CBC AND DIFFERENTIAL WAS CANCELLED, 08/13/2022 09:39 DUPLICATE ORDER. Performed By: #### C BCDF ####[id number] [place] [address] NUCLEATED RBC Canceled Normal [facility] Comment on above: Order Comment: TEST CBC AND DIFFERENTIAL WAS CANCELLED, 08/13/2022 09:39 DUPLICATE ORDER. Performed By: #### C BCDF ####[id number] [place] [address] PLT Canceled Normal [facility] Comment on above: Order Comment: TEST CBC AND DIFFERENTIAL WAS CANCELLED, 08/13/2022 09:39 DUPLICATE ORDER. Performed By: #### C BCDF ####[id number] [place] [address] RBC Canceled Normal [facility] Comment on above: Order Comment: TEST CBC AND DIFFERENTIAL WAS CANCELLED, 08/13/2022 09:39 DUPLICATE ORDER. Performed By: #### C BCDF ####[id number] [place] [address] RDW-CV Canceled Normal [facility] Comment on above: Order Comment: TEST CBC AND DIFFERENTIAL WAS CANCELLED, 08/13/2022 09:39 DUPLICATE ORDER. Performed By: #### C BCDF ####[id number] [place] [address] WBC Canceled Normal [facility] Comment on above: Order Comment: TEST CBC AND DIFFERENTIAL WAS CANCELLED, 08/13/2022 09:39 DUPLICATE ORDER. Performed By: #### C BCDF ####[id number] [place] [address] Daily Progress Note-Cardiolo gyon 08-13-2022 Daily Progress Note-Cardiology Normal [facility] Discharge [id number] Discharge Profile2 Normal [facility] HEPARIN ASSAY,UFHon 08-14-19 23 HEPARIN ASSAY,UFH 0.4 IU/mL Normal [facility] Comment on above: Result Comment: The therapeutic reference range for UFH may be either 0.3-0.6 IU/mL or 0.3-0.7 IU/mL based on the clinical setting for anticoagulant therapy and the associated nomogram used. For heparin dosing guidelines based on clinical scenario and Heparin Assay results, please refer to local Pharmacy and the [facility] Guidelines for Anticoagulation therapy available on the [facility] intranet at:[email or web address]_[email or web address].aspx Performed By: #### H AUF ####[id number] [place] [address] HEPARIN ASSAY,UFH Canceled Normal [facility] Comment on above: Order Comment: TEST HEPARIN ASSAY,UFH WAS CANCELLED, 08/13/2022 08:58 QNS, PLEASE RESUBMIT.. Result Comment: The therapeutic reference range for UFH may be either 0.3-0.6 IU/mL or 0.3-0.7 IU/mL based on the clinical setting for anticoagulant therapy and the associated nomogram used. For heparin dosing guidelines based on clinical scenario and Heparin Assay results, please refer to local Pharmacy and [facility] Guidelines for Anticoagulation therapy available on the [facility] intranet at:[email or web address]_Guidelines_[email or web address].aspx Performed By: #### H AUF ####[id number] [place] [address] MAGNESIUMon 08-13-2022 Magnesium [Mass/Vol] 1.95 mg/dL Normal 1.60 - 2.40 [facility] Comment on above: Performed By: #### M G ####[id number] [place] [address] MAGNESIUM Canceled Normal [facility] Comment on above: Order Comment: TEST MAGNESIUM WAS CANCELLED, 08/13/2022 09:39 DUPLICATE ORDER. Performed By: #### M G ####[id number] [place] [address] RENAL FUNCTION PANELon 08-13 Albumin [Mass/Vol] 2.9 g/dL Low 3.4 - 5.0 [facility] Comment on above: Performed By: #### R ENAL ####[id number] [place] [address] Anion gap [Moles/Vol] 14 mmol/L Normal 10 - 20 [facility] Comment on above: Performed By: #### R ENAL ####[id number] [place] [address] Calcium [Mass/Vol] 8.7 mg/dL Normal 8.6 - 10.6 [facility] Comment on above: Performed By: #### R ENAL ####[id number] [place] [address] Chloride [Moles/Vol] 99 mmol/L Normal 98 - 107 [facility] Comment on above: Performed By: #### R ENAL ####[id number] [place] [address] Creatinine [Mass/Vol] 1.34 mg/dL High 0.50 - 1.30 [facility] Comment on above: Performed By: #### R ENAL ####[id number] [place] [address] GFR/1.73 sq M.predicted among non-blacks MDRD (S/P/Bld) [Vol rate/Area] 67 mL/min/{1.73_m2} Normal >90 [facility] Comment on above: Result Comment: CALC ULATIONS OF ESTIMATED GFR ARE PERFORMED USING THE 2020 CKD-EPI STUDY REFIT EQUATION WITHOUT THE RACE VARIABLE FOR THE IDMS-TRACEABLE CREATININE METHODS.https://jasn.asnjournals.org/content/early/A SN.0295527721 Performed By: #### R ENAL ####[id number] [place] [address] Glucose [Mass/Vol] 113 mg/dL High 74 - 99 [facility] Comment on above: Performed By: #### R ENAL ####[id number] [place] [address] HCO3 (Bld) [Moles/Vol] 28 mmol/L Normal 21 - 32 [facility] Comment on above: Performed By: #### R ENAL ####[id number] [place] [address] Phosphate [Mass/Vol] 3.9 mg/dL Normal 2.5 - 4.9 [facility] Comment on above: Result Comment: The performance characteristics of phosphorus testing in heparinized plasma have been validated by the individual laboratory site where testing is performed. Testing on heparinized plasma is not approved by the FDA; however, such approval is not necessary. Performed By: #### R ENAL ####[id number] [place] [address] Potassium [Moles/Vol] 4.7 mmol/L Normal 3.5 - 5.3 [facility] Comment on above: Performed By: #### R ENAL ####[id number] [place] [address] Sodium [Moles/Vol] 136 mmol/L Normal 136 - 145 [facility] Comment on above: Performed By: #### R ENAL ####[id number] [place] [address] Urea nitrogen [Mass/Vol] 22 mg/dL Normal 6 - 23 [facility] Comment on above: Performed By: #### R ENAL ####[id number] [place] [address] ALBUMIN Canceled Normal [facility] Comment on above: Order Comment: TEST RENAL FUNCTION PANEL WAS CANCELLED, 08/13/2022 09:39 DUPLICATE ORDER. Performed By: #### R ENAL ####[id number] [place] [address] ANION GAP Canceled Normal [facility] Comment on above: Order Comment: TEST RENAL FUNCTION PANEL WAS CANCELLED, 08/13/2022 09:39 DUPLICATE ORDER. Performed By: #### R ENAL ####[id number] [place] [address] BICARBONATE Canceled Normal [facility] Comment on above: Order Comment: TEST RENAL FUNCTION PANEL WAS CANCELLED, 08/13/2022 09:39 DUPLICATE ORDER. Performed By: #### R ENAL ####[id number] [place] [address] CALCIUM Canceled Normal [facility] Comment on above: Order Comment: TEST RENAL FUNCTION PANEL WAS CANCELLED, 08/13/2022 09:39 DUPLICATE ORDER. Performed By: #### R ENAL ####[id number] [place] [address] CHLORIDE Canceled Normal [facility] Comment on above: Order Comment: TEST RENAL FUNCTION PANEL WAS CANCELLED, 08/13/2022 09:39 DUPLICATE ORDER. Performed By: #### R ENAL ####[id number] [place] [address] CREATININE Canceled Normal [facility] Comment on above: Order Comment: TEST RENAL FUNCTION PANEL WAS CANCELLED, 08/13/2022 09:39 DUPLICATE ORDER. Performed By: #### R ENAL ####[id number] [place] [address] eGFR FEMALE Canceled Normal [facility] Comment on above: Order Comment: TEST RENAL FUNCTION PANEL WAS CANCELLED, 08/13/2022 09:39 DUPLICATE ORDER. Result Comment: CALC ULATIONS OF ESTIMATED GFR ARE PERFORMED USING THE 2020 CKD-EPI STUDY REFIT EQUATION WITHOUT THE RACE VARIABLE FOR THE IDMS-TRACEABLE CREATININE METHODS.https://jasn.asnjournals.org/content/early//A SN.0009734469 Performed By: #### R ENAL ####[id number] [place] [address] eGFR MALE Canceled Normal [facility] Comment on above: Order Comment: TEST RENAL FUNCTION PANEL WAS CANCELLED, 08/13/2022 09:39 DUPLICATE ORDER. Result Comment: CALC ULATIONS OF ESTIMATED GFR ARE PERFORMED USING THE 2020 CKD-EPI STUDY REFIT EQUATION WITHOUT THE RACE VARIABLE FOR THE IDMS-TRACEABLE CREATININE METHODS.https://jasn.asnjournals.org/content/early/A SN.0882898731 Performed By: #### R ENAL ####[id number] [place] [address] GLUCOSE Canceled Normal [facility] Comment on above: Order Comment: TEST RENAL FUNCTION PANEL WAS CANCELLED, 08/13/2022 09:39 DUPLICATE ORDER. Performed By: #### R ENAL ####[id number] [place] [address] PHOSPHORUS Canceled Normal [facility] Comment on above: Order Comment: TEST RENAL FUNCTION PANEL WAS CANCELLED, 08/13/2022 09:39 DUPLICATE ORDER. Result Comment: The performance characteristics of phosphorus testing in heparinized plasma have been validated by the individual laboratory site where testing is performed. Testing on heparinized plasma is not approved by the FDA; however, such approval is not necessary. Performed By: #### R ENAL ####[id number] [place] [address] POTASSIUM Canceled Normal [facility] Comment on above: Order Comment: TEST RENAL FUNCTION PANEL WAS CANCELLED, 08/13/2022 09:39 DUPLICATE ORDER. Performed By: #### R ENAL ####[id number] [place] [address] SODIUM Canceled Normal [facility] Comment on above: Order Comment: TEST RENAL FUNCTION PANEL WAS CANCELLED, 08/13/2022 09:39 DUPLICATE ORDER. Performed By: #### R ENAL ####[id number] [place] [address] UREA NITROGEN Canceled Normal [facility] Comment on above: Order Comment: TEST RENAL FUNCTION PANEL WAS CANCELLED, 08/13/2022 09:39 DUPLICATE ORDER. Performed By: #### R ENAL ####[id number] [place] [address] CBC AND DIFFERENTIALon 08-12 % AUTOMATED IMMATURE GRAN 2.1 % High 0.0 - 0.9 [facility] Comment on above: Result Comment: Nicki ture Granulocyte Count (IG) includes promyelocytes, myelocytes and metamyelocytes but does not include bands. Percent differential counts (%) should be interpreted in the context of the absolute cell counts (cells/L). Performed By: #### C BCDF ####[id number] [place] [address] Basophils (Bld) [#/Vol] 0.11 10*3/uL High 0.00 - 0.10 [facility] Comment on above: Performed By: #### C BCDF ####[id number] [place] [address] Basophils/100 WBC (Bld) 0.9 % Normal 0.0 - 2.0 [facility] Comment on above: Performed By: #### C BCDF ####[id number] [place] [address] Eosinophils (Bld) [#/Vol] 0.32 10*3/uL Normal 0.00 - 0.70 [facility] Comment on above: Performed By: #### C BCDF ####[id number] [place] [address] Eosinophils/100 WBC (Bld) 2.6 % Normal 0.0 - 6.0 [facility] Comment on above: Performed By: #### C BCDF ####[id number] [place] [address] Erythrocyte distribution width (RBC) [Ratio] 13.6 % Normal 11.5 - 14.5 [facility] Comment on above: Performed By: #### C BCDF ####[id number] [place] [address] Hematocrit (Bld) [Volume fraction] 41.5 % Normal 41.0 - 52.0 [facility] Comment on above: Performed By: #### C BCDF ####[id number] [place] [address] Hemoglobin (Bld) [Mass/Vol] 13.5 g/dL Normal 13.5 - 17.5 [facility] Comment on above: Performed By: #### C BCDF ####[id number] [place] [address] Lymphocytes (Bld) [#/Vol] 1.81 10*3/uL Normal 1.20 - 4.80 [facility] Comment on above: Performed By: #### C BCDF ####[id number] [place] [address] Lymphocytes/100 WBC (Bld) 14.5 % Normal 13.0 - 44.0 [facility] Comment on above: Performed By: #### C BCDF ####[id number] [place] [address] MCHC (RBC) [Mass/Vol] 32.5 g/dL Normal 32.0 - 36.0 [facility] Comment on above: Performed By: #### C BCDF ####[id number] [place] [address] MCV (RBC) [Entitic vol] 99 fL Normal 80 - 100 [facility] Comment on above: Performed By: #### C BCDF ####[id number] [place] [address] Monocytes (Bld) [#/Vol] 0.84 10*3/uL Normal 0.10 - 1.00 [facility] Comment on above: Performed By: #### C BCDF ####[id number] [place] [address] Monocytes/100 WBC (Bld) 6.8 % Normal 2.0 - 10.0 [facility] Comment on above: Performed By: #### C BCDF ####[id number] [place] [address] Neutrophils (Bld) [#/Vol] 9.10 10*3/uL High 1.20 - 7.70 [facility] Comment on above: Performed By: #### C BCDF ####[id number] [place] [address] Neutrophils/100 WBC (Bld) 73.1 % Normal 40.0 - 80.0 [facility] Comment on above: Performed By: #### C BCDF ####[id number] [place] [address] NUCLEATED RBC 0.4 /100 WBC Normal 0.0-0.0 [facility] Comment on above: Performed By: #### C BCDF ####[id number] [place] [address] Platelets (Bld) [#/Vol] 244 10*3/uL Normal 150 - 450 [facility] Comment on above: Performed By: #### C BCDF ####[id number] [place] [address] RBC 4.21 x10E12/L Low 4.50 - 5.90 [facility] Comment on above: Performed By: #### C BCDF ####[id number] [place] [address] WBC (Bld) [#/Vol] 12.4 10*3/uL High 4.4 - 11.3 [facility] Comment on above: Performed By: #### C BCDF ####[id number] [place] [address] Clinical Event Note-cardiac surgery updateon 08-12-2022 Clinical Event Note-cardiac surgery update Normal [facility] Consult-Oncologyon 3 Consult-Oncology Normal [facility] Daily Progress Note - Critic al Care-CICUon 08-12-2022 Daily Progress Note - Critical Care-CICU Normal [facility] Daily Progress Note-Cardiolo gyon 08-12-2022 Daily Progress Note-Cardiology Normal [facility] HEPARIN ASSAY,UFHon 08-13-19 23 HEPARIN ASSAY,UFH 0.3 IU/mL Normal [facility] Comment on above: Result Comment: The therapeutic reference range for UFH may be either 0.3-0.6 IU/mL or 0.3-0.7 IU/mL based on the clinical setting for anticoagulant therapy and the associated nomogram used. For heparin dosing guidelines based on clinical scenario and Heparin Assay results, please refer to local Pharmacy and the [facility] Guidelines for Anticoagulation therapy available on the [facility] intranet at:[email or web address]_Guidelines_for_[email or web address].aspx Performed By: #### H AUF ####[id number] [place] [address] HEPARIN ASSAY,UFH 0.4 IU/mL Normal [facility] Comment on above: Result Comment: The therapeutic reference range for UFH may be either 0.3-0.6 IU/mL or 0.3-0.7 IU/mL based on the clinical setting for anticoagulant therapy and the associated nomogram used. For heparin dosing guidelines based on clinical scenario and Heparin Assay results, please refer to local Pharmacy and the [facility] Guidelines for Anticoagulation therapy available on the [facility] intranet at:[email or web address]_Guidelines_[email or web address].aspx Performed By: #### H AUF ####[id number] [place] [address] MAGNESIUMon 08-12-2022 Magnesium [Mass/Vol] 1.95 mg/dL Normal 1.60 - 2.40 [facility] Comment on above: Performed By: #### M G ####[id number] [place] [address] RENAL FUNCTION PANELon 08-12 Albumin [Mass/Vol] 2.8 g/dL Low 3.4 - 5.0 [facility] Comment on above: Performed By: #### R ENAL ####[id number] [place] [address] Anion gap [Moles/Vol] 12 mmol/L Normal 10 - 20 [facility] Comment on above: Performed By: #### R ENAL ####[id number] [place] [address] Calcium [Mass/Vol] 9.0 mg/dL Normal 8.6 - 10.6 [facility] Comment on above: Performed By: #### R ENAL ####[id number] [place] [address] Chloride [Moles/Vol] 100 mmol/L Normal 98 - 107 [facility] Comment on above: Performed By: #### R ENAL ####[id number] [place] [address] Creatinine [Mass/Vol] 1.24 mg/dL Normal 0.50 - 1.30 [facility] Comment on above: Performed By: #### R ENAL ####[id number] [place] [address] GFR/1.73 sq M.predicted among non-blacks MDRD (S/P/Bld) [Vol rate/Area] 74 mL/min/{1.73_m2} Normal >90 [facility] Comment on above: Result Comment: CALC ULATIONS OF ESTIMATED GFR ARE PERFORMED USING THE 2020 CKD-EPI STUDY REFIT EQUATION WITHOUT THE RACE VARIABLE FOR THE IDMS-TRACEABLE CREATININE METHODS.https://jasn.asnjournals.org/content/early//A SN.5087445987 Performed By: #### R ENAL ####[id number] [place] [address] Glucose [Mass/Vol] 108 mg/dL High 74 - 99 [facility] Comment on above: Performed By: #### R ENAL ####[id number] [place] [address] HCO3 (Bld) [Moles/Vol] 30 mmol/L Normal 21 - 32 [facility] Comment on above: Performed By: #### R ENAL ####[id number] [place] [address] Phosphate [Mass/Vol] 4.3 mg/dL Normal 2.5 - 4.9 [facility] Comment on above: Result Comment: The performance characteristics of phosphorus testing in heparinized plasma have been validated by the individual laboratory site where testing is performed. Testing on heparinized plasma is not approved by the FDA; however, such approval is not necessary. Performed By: #### R ENAL ####[id number] [place] [address] Potassium [Moles/Vol] 4.7 mmol/L Normal 3.5 - 5.3 [facility] Comment on above: Performed By: #### R ENAL ####[id number] [place] [address] Sodium [Moles/Vol] 137 mmol/L Normal 136 - 145 [facility] Comment on above: Performed By: #### R ENAL ####[id number] [place] [address] Urea nitrogen [Mass/Vol] 22 mg/dL Normal 6 - 23 [facility] Comment on above: Performed By: #### R ENAL ####[id number] [place] [address] TH CHEST 1 VIEWon 08-12-2022 TH CHEST 1 VIEW Normal [facility] Transesophageal Echoon 08-12 Transesophageal Echo Normal [facility] BLOOD CULTURE, BACTERIALon 0 08-11-2022 BLOOD CULTURE, BACTERIAL Normal [facility] Comment on above: Performed By: #### B LDC ####[id number] [place] [address] CBC AND DIFFERENTIALon 08-11 % AUTOMATED IMMATURE GRAN 1.9 % High 0.0 - 0.9 [facility] Comment on above: Result Comment: Nicki ture Granulocyte Count (IG) includes promyelocytes, myelocytes and metamyelocytes but does not include bands. Percent differential counts (%) should be interpreted in the context of the absolute cell counts (cells/L). Performed By: #### C BCDF ####[id number] [place] [address] Basophils (Bld) [#/Vol] 0.06 10*3/uL Normal 0.00 - 0.10 [facility] Comment on above: Performed By: #### C BCDF ####[id number] [place] [address] Basophils/100 WBC (Bld) 0.5 % Normal 0.0 - 2.0 [facility] Comment on above: Performed By: #### C BCDF ####[id number] [place] [address] Eosinophils (Bld) [#/Vol] 0.29 10*3/uL Normal 0.00 - 0.70 [facility] Comment on above: Performed By: #### C BCDF ####[id number] [place] [address] Eosinophils/100 WBC (Bld) 2.5 % Normal 0.0 - 6.0 [facility] Comment on above: Performed By: #### C BCDF ####[id number] [place] [address] Erythrocyte distribution width (RBC) [Ratio] 13.4 % Normal 11.5 - 14.5 [facility] Comment on above: Performed By: #### C BCDF ####[id number] [place] [address] Hematocrit (Bld) [Volume fraction] 38.5 % Low 41.0 - 52.0 [facility] Comment on above: Performed By: #### C BCDF ####[id number] [place] [address] Hemoglobin (Bld) [Mass/Vol] 12.8 g/dL Low 13.5 - 17.5 [facility] Comment on above: Performed By: #### C BCDF ####[id number] [place] [address] Lymphocytes (Bld) [#/Vol] 1.77 10*3/uL Normal 1.20 - 4.80 [facility] Comment on above: Performed By: #### C BCDF ####[id number] [place] [address] Lymphocytes/100 WBC (Bld) 15.2 % Normal 13.0 - 44.0 [facility] Comment on above: Performed By: #### C BCDF ####[id number] [place] [address] MCHC (RBC) [Mass/Vol] 33.2 g/dL Normal 32.0 - 36.0 [facility] Comment on above: Performed By: #### C BCDF ####[id number] [place] [address] MCV (RBC) [Entitic vol] 96 fL Normal 80 - 100 [facility] Comment on above: Performed By: #### C BCDF ####[id number] [place] [address] Monocytes (Bld) [#/Vol] 1.13 10*3/uL High 0.10 - 1.00 [facility] Comment on above: Performed By: #### C BCDF ####[id number] [place] [address] Monocytes/100 WBC (Bld) 9.7 % Normal 2.0 - 10.0 [facility] Comment on above: Performed By: #### C BCDF ####[id number] [place] [address] Neutrophils (Bld) [#/Vol] 8.17 10*3/uL High 1.20 - 7.70 [facility] Comment on above: Performed By: #### C BCDF ####[id number] [place] [address] Neutrophils/100 WBC (Bld) 70.2 % Normal 40.0 - 80.0 [facility] Comment on above: Performed By: #### C BCDF ####[id number] [place] [address] NUCLEATED RBC 0.0 /100 WBC Normal 0.0-0.0 [facility] Comment on above: Performed By: #### C BCDF ####[id number] [place] [address] Platelets (Bld) [#/Vol] 255 10*3/uL Normal 150 - 450 [facility] Comment on above: Performed By: #### C BCDF ####[id number] [place] [address] RBC 4.00 x10E12/L Low 4.50 - 5.90 [facility] Comment on above: Performed By: #### C BCDF ####[id number] [place] [address] WBC (Bld) [#/Vol] 11.6 10*3/uL High 4.4 - 11.3 [facility] Comment on above: Performed By: #### C BCDF ####[id number] [place] [address] Clinical Note - Pharmacy v2- Medication Educationon 08-11-2022 Clinical Note - Pharmacy v2-Medication Education Normal [facility] Consult-Infectious Diseaseon 08-11-2022 Consult-Infectious Disease Normal [facility] Daily Progress Note - Critic al Care-CICUon 08-11-2022 Daily Progress Note - Critical Care-CICU Normal [facility] Daily Progress Note-Cardiac Surgeryon 08-11-2022 Daily Progress Note-Cardiac Surgery Normal [facility] HEPARIN ASSAY,UFHon 08-12-19 HEPARIN ASSAY,UFH 0.2 IU/mL Normal [facility] Comment on above: Result Comment: The therapeutic reference range for UFH may be either 0.3-0.6 IU/mL or 0.3-0.7 IU/mL based on the clinical setting for anticoagulant therapy and the associated nomogram used. For heparin dosing guidelines based on clinical scenario and Heparin Assay results, please refer to local Pharmacy and the [facility] Guidelines for Anticoagulation therapy available on the [facility] intranet at:[email or web address]/Pages/[facility]_Guidelines_for_Anticoagu.aspx Performed By: #### H AUF ####[id number] [place] [address] HEPARIN ASSAY,UFH 0.3 IU/mL Normal [facility] Comment on above: Result Comment: The therapeutic reference range for UFH may be either 0.3-0.6 IU/mL or 0.3-0.7 IU/mL based on the clinical setting for anticoagulant therapy and the associated nomogram used. For heparin dosing guidelines based on clinical scenario and Heparin Assay results, please refer to local Pharmacy and the [facility] Guidelines for Anticoagulation therapy available on the [facility] intranet at:[email or web address]/[email or web address]_Guidelines_for_Anticoagu.aspx Performed By: #### H AUF ####[id number] [place] [address] HEPARIN ASSAY,UFH 0.2 IU/mL Normal [facility] Comment on above: Result Comment: The therapeutic reference range for UFH may be either 0.3-0.6 IU/mL or 0.3-0.7 IU/mL based on the clinical setting for anticoagulant therapy and the associated nomogram used. For heparin dosing guidelines based on clinical scenario and Heparin Assay results, please refer to local Pharmacy and the [facility] Guidelines for Anticoagulation therapy available on the [facility] intranet at:[email or web address]/[email or web address]/Pages/[facility]_Guidelines_for_Anticoagu.aspx Performed By: #### H AUF ####[id number] [place] [address] HEPARIN ASSAY,UFH 0.4 IU/mL Normal [facility] Comment on above: Result Comment: The therapeutic reference range for UFH may be either 0.3-0.6 IU/mL or 0.3-0.7 IU/mL based on the clinical setting for anticoagulant therapy and the associated nomogram used. For heparin dosing guidelines based on clinical scenario and Heparin Assay results, please refer to local Pharmacy and the [facility] Guidelines for Anticoagulation therapy available on the [facility] intranet at:[email or web address]/[email or web address]/Pages/[facility]_Guidelines_for_Anticoagu.aspx Performed By: #### H AUF ####[id number] [id number] HEPARIN ASSAY,UFH 0.2 IU/mL Normal [facility] Comment on above: Result Comment: The therapeutic reference range for UFH may be either 0.3-0.6 IU/mL or 0.3-0.7 IU/mL based on the clinical setting for anticoagulant therapy and the associated nomogram used. For heparin dosing guidelines based on clinical scenario and Heparin Assay results, please refer to local Pharmacy and the [facility] Guidelines for Anticoagulation therapy available on the [facility] intranet at:[email or web address]/Pages/[facility]_Guidelines_for_Anticoagu.aspx Performed By: #### H AUF ####[id number] [place] [address] MAGNESIUMon 08-11-2022 Magnesium [Mass/Vol] 1.86 mg/dL Normal 1.60 - 2.40 [facility] Comment on above: Performed By: #### M G ####[id number] [place] [address] PT Evaluation v2-individual therapyon 08-11-2022 PT Evaluation v2-individual therapy Normal [facility] RENAL FUNCTION PANELon 08-11 Albumin [Mass/Vol] 2.8 g/dL Low 3.4 - 5.0 [facility] Comment on above: Performed By: #### R ENAL ####[id number] [place] [address] Anion gap [Moles/Vol] 14 mmol/L Normal 10 - 20 [facility] Comment on above: Performed By: #### R ENAL ####[id number] [place] [address] Calcium [Mass/Vol] 8.4 mg/dL Low 8.6 - 10.6 [facility] Comment on above: Performed By: #### R ENAL ####[id number] [place] [address] Chloride [Moles/Vol] 97 mmol/L Low 98 - 107 [facility] Comment on above: Performed By: #### R ENAL ####[id number] [place] [address] Creatinine [Mass/Vol] 1.28 mg/dL Normal 0.50 - 1.30 [facility] Comment on above: Performed By: #### R ENAL ####[id number] [place] [address] GFR/1.73 sq M.predicted among non-blacks MDRD (S/P/Bld) [Vol rate/Area] 71 mL/min/{1.73_m2} Normal >90 [facility] Comment on above: Result Comment: CALC ULATIONS OF ESTIMATED GFR ARE PERFORMED USING THE 2020 CKD-EPI STUDY REFIT EQUATION WITHOUT THE RACE VARIABLE FOR THE IDMS-TRACEABLE CREATININE METHODS.https://jasn.asnjournals.org/content//A SN.8019700871 Performed By: #### R ENAL ####[id number] [place] [address] Glucose [Mass/Vol] 89 mg/dL Normal 74 - 99 [facility] Comment on above: Performed By: #### R ENAL ####[id number] [place] [address] HCO3 (Bld) [Moles/Vol] 33 mmol/L High 21 - 32 [facility] Comment on above: Performed By: #### R ENAL ####[id number] [place] [address] Phosphate [Mass/Vol] 4.2 mg/dL Normal 2.5 - 4.9 [facility] Comment on above: Result Comment: The performance characteristics of phosphorus testing in heparinized plasma have been validated by the individual laboratory site where testing is performed. Testing on heparinized plasma is not approved by the FDA; however, such approval is not necessary. Performed By: #### R ENAL ####[id number] [place] [address] Potassium [Moles/Vol] 4.7 mmol/L Normal 3.5 - 5.3 [facility] Comment on above: Performed By: #### R ENAL ####[id number] [place] [address] Sodium [Moles/Vol] 139 mmol/L Normal 136 - 145 [facility] Comment on above: Performed By: #### R ENAL ####[id number] [place] [address] Urea nitrogen [Mass/Vol] 24 mg/dL High 6 - 23 [facility] Comment on above: Performed By: #### R ENAL ####[id number] [place] [address] TH CHEST 1 VIEWon 08-11-2022 CHEST 1 VIEW Normal [facility] US VENOUS DUPLEX LOWER EXTRE MITY VEINS BILATERALon 08-11-2022 US VENOUS DUPLEX LOWER EXTREMITY VEINS BILATERAL Normal [facility] Admission Risk Screen - Adul ton 08-10-2022 Admission Risk Screen - Adult Normal [facility] BNPon 08-10-2022 Natriuretic peptide B (Bld) [Mass/Vol] 231 pg/mL High 0 - 99 [facility] Comment on above: Result Comment: . <1 00 pg/mL - Heart failure [id number] pg/mL - Intermediate probability of acute heart. [...] further information. Performed By: #### B NP2 ####[id number] [place] [address] CBCon 08-10-2022 Erythrocyte distribution width (RBC) [Ratio] 13.3 % Normal 11.5 - 14.5 [facility] Comment on above: Performed By: #### C BC ####[id number] [place] [address] Hematocrit (Bld) [Volume fraction] 39.0 % Low 41.0 - 52.0 [facility] Comment on above: Performed By: #### C BC ####[id number] [place] [address] Hemoglobin (Bld) [Mass/Vol] 12.9 g/dL Low 13.5 - 17.5 [facility] Comment on above: Performed By: #### C BC ####[id number] [place] [address] MCHC (RBC) [Mass/Vol] 33.1 g/dL Normal 32.0 - 36.0 [facility] Comment on above: Performed By: #### C BC ####[id number] [place] [address] MCV (RBC) [Entitic vol] 96 fL Normal 80 - 100 [facility] Comment on above: Performed By: #### C BC ####[id number] [place] [address] NUCLEATED RBC 0.0 /100 WBC Normal 0.0-0.0 [facility] Comment on above: Performed By: #### C BC ####[id number] [place] [address] Platelets (Bld) [#/Vol] 260 10*3/uL Normal 150 - 450 [facility] Comment on above: Performed By: #### C BC ####[id number] [place] [address] RBC 4.06 x10E12/L Low 4.50 - 5.90 [facility] Comment on above: Performed By: #### C BC ####[id number] [place] [address] WBC (Bld) [#/Vol] 12.5 10*3/uL High 4.4 - 11.3 [facility] Comment on above: Performed By: #### C BC ####[id number] [place] [address] CBC AND DIFFERENTIALon 08-10 % AUTOMATED IMMATURE GRAN 2.0 % High 0.0 - 0.9 [facility] Comment on above: Result Comment: Nicki ture Granulocyte Count (IG) includes promyelocytes, myelocytes and metamyelocytes but does not include bands. Percent differential counts (%) should be interpreted in the context of the absolute cell counts (cells/L). Performed By: #### C BCDF ####[id number] [place] [address] Basophils (Bld) [#/Vol] 0.06 10*3/uL Normal 0.00 - 0.10 [facility] Comment on above: Performed By: #### C BCDF ####[id number] [place] [address] Basophils/100 WBC (Bld) 0.5 % Normal 0.0 - 2.0 [facility] Comment on above: Performed By: #### C BCDF ####[id number] [place] [address] Eosinophils (Bld) [#/Vol] 0.31 10*3/uL Normal 0.00 - 0.70 [facility] Comment on above: Performed By: #### C BCDF ####[id number] [place] [address] Eosinophils/100 WBC (Bld) 2.8 % Normal 0.0 - 6.0 [facility] Comment on above: Performed By: #### C BCDF ####[id number] [place] [address] Erythrocyte distribution width (RBC) [Ratio] 13.7 % Normal 11.5 - 14.5 [facility] Comment on above: Performed By: #### C BCDF ####[id number] [place] [address] Hematocrit (Bld) [Volume fraction] 42.5 % Normal 41.0 - 52.0 [facility] Comment on above: Performed By: #### C BCDF ####[id number] [place] [address] Hemoglobin (Bld) [Mass/Vol] 13.1 g/dL Low 13.5 - 17.5 [facility] Comment on above: Performed By: #### C BCDF ####[id number] [place] [address] Lymphocytes (Bld) [#/Vol] 1.77 10*3/uL Normal 1.20 - 4.80 [facility] Comment on above: Performed By: #### C BCDF ####[id number] [place] [address] Lymphocytes/100 WBC (Bld) 15.9 % Normal 13.0 - 44.0 [facility] Comment on above: Performed By: #### C BCDF ####[id number] [place] [address] MCHC (RBC) [Mass/Vol] 30.8 g/dL Low 32.0 - 36.0 [facility] Comment on above: Performed By: #### C BCDF ####[id number] [place] [address] MCV (RBC) [Entitic vol] 101 fL High 80 - 100 [facility] Comment on above: Performed By: #### C BCDF ####[id number] [place] [address] Monocytes (Bld) [#/Vol] 1.33 10*3/uL High 0.10 - 1.00 [facility] Comment on above: Performed By: #### C BCDF ####[id number] [place] [address] Monocytes/100 WBC (Bld) 11.9 % Normal 2.0 - 10.0 [facility] Comment on above: Performed By: #### C BCDF ####[id number] [place] [address] Neutrophils (Bld) [#/Vol] 7.45 10*3/uL Normal 1.20 - 7.70 [facility] Comment on above: Performed By: #### C BCDF ####[id number] [place] [address] Neutrophils/100 WBC (Bld) 66.9 % Normal 40.0 - 80.0 [facility] Comment on above: Performed By: #### C BCDF ####[id number] [place] [address] NUCLEATED RBC 0.0 /100 WBC Normal 0.0-0.0 [facility] Comment on above: Performed By: #### C BCDF ####[id number] [place] [address] Platelets (Bld) [#/Vol] 260 10*3/uL Normal 150 - 450 [facility] Comment on above: Performed By: #### C BCDF ####[id number] [place] [address] RBC 4.21 x10E12/L Low 4.50 - 5.90 [facility] Comment on above: Performed By: #### C BCDF ####[id number] [place] [address] WBC (Bld) [#/Vol] 11.1 10*3/uL Normal 4.4 - 11.3 [facility] Comment on above: Performed By: #### C BCDF ####[id number] [place] [address] COAGULATION SCREENon 023 aPTT Coag (Bld) [Time] 122 s Critically high 27 - 38 [facility] Comment on above: Order Comment: Familia perez- RB to CATIE STOVER, 08/09/2022 23:59 Result Comment: Note new reference range as of 08/02/2022 at 10:00am.. Called- RB to CATIE STOVER, 08/09/2022 23:59 Performed By: #### C OAGS ####[id number] [place] [address] PT Coag (PPP) [Time] 17.3 s High 9.8 - 12.8 [facility] Comment on above: Order Comment: Familia perez- RB to CATIE STOVER, 08/09/2022 23:59 Result Comment: Note new reference range as of 08/02/2022 at 10:00am. Performed By: #### C OAGS ####[id number] [place] [address] PT, INR 1.5 High 0.9 - 1.1 [facility] Comment on above: Order Comment: Familia perez- RB to CATIE STOVER, 08/09/2022 23:59 Performed By: #### C OAGS ####[id number] [place] [address] Consult-Cardiac Surgeryon Consult-Cardiac Surgery Normal [facility] Nmovhha-Bseunavcjyud-Adxq Sa lvageon 08-10-2022 Rxvpnts-Soggwrnzwfqh-R imb Salvage Normal [facility] Daily Progress Note - Critic al Careon 08-10-2022 Daily Progress Note - Critical Care Normal [facility] Discharge Planning Boti2ib 0 08-10-2022 Discharge Planning Note2 Normal [facility] EMR ADDONon 08-10-2022 ADDON CONFIRMATION REQUEST REC'D Normal [facility] Comment on above: Performed By: #### E MRAD ####NO LOCATION NEEDED Electrocardiogram 12 Leadon 08-10-2022 Electrocardiogram 12 Lead Normal [facility] HEMOGLOBIN A1Con 08-10-2022 Glucose [Mass/Vol] 120 mg/dL Normal [facility] Comment on above: Performed By: #### H BA1E ####[id number] [place] [address] HbA1c (Bld) [Mass fraction] 5.8 % Abnormal [facility] Comment on above: Result Comment: Diag nosis of Diabetes-Adults Non-Diabetic: < or = 5.6% Increased risk for developing diabetes: 5.7-6.4% Diagnostic of diabetes: > or = 6.5%. Monitoring of Diabetes Age (y) Therapeutic Goal (%) Adults: >18 <7.0 Pediatrics: 13-18 <7.5 7-12 <8.0 0- 6 7.5-8.5 [employer]. Diabetes Care 33(S1), Feb 2009. Performed By: #### H BA1E ####[id number] [place] [address] HEPARIN ASSAY,UFHon 08-11-19 HEPARIN ASSAY,UFH 0.3 IU/mL Normal [facility] Comment on above: Result Comment: The therapeutic reference range for UFH may be either 0.3-0.6 IU/mL or 0.3-0.7 IU/mL based on the clinical setting for anticoagulant therapy and the associated nomogram used. For heparin dosing guidelines based on clinical scenario and Heparin Assay results, please refer to local Pharmacy and the [facility] Guidelines for Anticoagulation therapy available on the [facility] intranet at:[email or web address]/Pages/[facility]_Guidelines_for_Anticoagu.aspx Performed By: #### H AUF ####[id number] [place] [address] HEPARIN ASSAY,UFH 0.7 IU/mL Normal [facility] Comment on above: Result Comment: The therapeutic reference range for UFH may be either 0.3-0.6 IU/mL or 0.3-0.7 IU/mL based on the clinical setting for anticoagulant therapy and the associated nomogram used. For heparin dosing guidelines based on clinical scenario and Heparin Assay results, please refer to local Pharmacy and the [facility] Guidelines for Anticoagulation therapy available on the [facility] intranet at:[email or web address]/[email or web address]_Guidelines_for_Anticoagu.aspx Performed By: #### H AUF ####[id number] [place] [address] HEPATIC FUNCTION PANELon Albumin [Mass/Vol] 2.7 g/dL Low 3.4 - 5.0 [facility] Comment on above: Performed By: #### H EPFP ####[id number] [place] [address] Performed By: #### R ENAL ####[id number] [place] [address] ALP [Catalytic activity/Vol] 85 U/L Normal 33 - 120 [facility] Comment on above: Performed By: #### H EPFP ####[id number] [place] [address] ALT [Catalytic activity/Vol] 33 U/L Normal 10 - 52 [facility] Comment on above: Result Comment: Kristi ents treated with Sulfasalazine may generate falsely decreased results for ALT. Performed By: #### H EPFP ####[id number] [place] [address] AST [Catalytic activity/Vol] 30 U/L Normal 9 - 39 [facility] Comment on above: Performed By: #### H EPFP ####[id number] [place] [address] Bilirubin [Mass/Vol] 0.6 mg/dL Normal 0.0 - 1.2 [facility] Comment on above: Performed By: #### H EPFP ####[id number] [place] [address] Bilirubin.indirect [Mass/Vol] 0.3 mg/dL Normal 0.0 - 0.3 [facility] Comment on above: Performed By: #### H EPFP ####[id number] [place] [address] Protein [Mass/Vol] 5.8 g/dL Low 6.4 - 8.2 [facility] Comment on above: Performed By: #### H EPFP ####[id number] [place] [address] LACTATEon 08-10-2022 LACTATE Canceled Normal [facility] Comment on above: Order Comment: TEST LACTATE WAS CANCELLED, 08/10/2022 07:51 NO SPECIMEN RECEIVED IN LAB. Result Comment: Isabela puncture immediately after or during the administration of Metamizole may lead to falsely low results. Testing should be performed immediately prior to Metamizole dosing. Performed By: #### L ACT ####[id number] [place] [address] Lactate [Moles/Vol] 0.7 mmol/L Normal 0.4 - 2.0 [facility] Comment on above: Result Comment: Isabela puncture immediately after or during the administration of Metamizole may lead to falsely low results. Testing should be performed immediately prior to Metamizole dosing. Performed By: #### L ACT ####[id number] [place] [address] LEGIONELLA AG, URINEon 08-10 LEGIONELLA AG, URINE Negative Normal Negative [facility] Comment on above: Result Comment: NEGA TIVE FOR LEGIONELLA PNEUMOPHILIASEROGROUP 1 ANTIGEN IN URINE,SUGGESTING NO CURRENT OR PAST INFECTION. Performed By: #### L EGUR ####[id number] [place] [address] Lab Specimen Source Normal [facility] Comment on above: Performed By: #### L EGUR ####[id number] [place] [address] LIPID PANEL (CORONARY RISK 2 )on 08-10-2022 Cholesterol [Mass/Vol] 71 mg/dL Normal 0 - 199 [facility] Comment on above: Result Comment: . AG [...] Metamizole dosing. Performed By: #### L IPID ####[id number] [place] [address] Cholesterol in HDL [Mass/Vol] 19.7 mg/dL Abnormal [facility] Comment on above: Result Comment: . AG E VERY LOW LOW NORMAL HIGH 0-19 Y < 35 < 40 40-45 ---- 20-24 Y ---- < 40 >45 ---- >24 Y ---- < 40 40-60 >60. Performed By: #### L IPID ####[id number] [place] [address] Cholesterol in LDL [Mass/Vol] 33 mg/dL Normal 0 - 99 [facility] Comment on above: Result Comment: . NE CH[place]O BA AGE DESIRABLE OPTIMAL HIGH HIGH VERY HIGH 0-19 Y 0 - 109 --- 110-129 >/= 130 ---- 20-24 Y 0 - 119 --- 120-159 >/= 160 ---- >24 Y 0 - 99 100-129 130-159 160-189 >/=190. Performed By: #### L IPID ####[id number] [place] [address] Cholesterol in VLDL [Mass/Vol] 19 mg/dL Normal 0 - 40 [facility] Comment on above: Performed By: #### L IPID ####[id number] [place] [address] Cholesterol.total/Chol esterol in HDL [Mass ratio] 3.6 {ratio} Normal [facility] Comment on above: Result Comment: REF VALUESDESIRABLE < 3.4HIGH RISK > 5.0 Performed By: #### L IPID ####[id number] [place] [address] Triglyceride [Mass/Vol] 93 mg/dL Normal 0 - 149 [facility] Comment on above: Result Comment: . AG [...] Metamizole dosing. Performed By: #### L IPID ####[id number] [place] [address] MAGNESIUMon 08-10-2022 Magnesium [Mass/Vol] 2.03 mg/dL Normal 1.60 - 2.40 [facility] Comment on above: Performed By: #### M G ####[id number] [place] [address] Magnesium [Mass/Vol] 2.15 mg/dL Normal 1.60 - 2.40 [facility] Comment on above: Performed By: #### M G ####[id number] [place] [address] Order Reconciliationon 08-10 Order Reconciliation Normal [facility] PROCALCITONINon 08-10-2022 PROCALCITONIN 0.15 ng/mL Abnormal <=0.07 [facility] Comment on above: Result Comment: Proc alcitonin [...] been evaluated. Performed By: #### P CALC ####[id number] [place] [address] PT Evaluation v2-attemptedon 08-10-2022 PT Evaluation v2-attempted Normal [facility] Patient Profile - Adult v2on 08-10-2022 Patient Profile - Adult v2 Normal [facility] RENAL FUNCTION PANELon 08-10 Albumin [Mass/Vol] 2.8 g/dL Low 3.4 - 5.0 [facility] Comment on above: Performed By: #### R ENAL ####[id number] [place] [address] Anion gap [Moles/Vol] 12 mmol/L Normal 10 - 20 [facility] Comment on above: Performed By: #### R ENAL ####[id number] [place] [address] Calcium [Mass/Vol] 8.4 mg/dL Low 8.6 - 10.6 [facility] Comment on above: Performed By: #### R ENAL ####[id number] [place] [address] Chloride [Moles/Vol] 98 mmol/L Normal 98 - 107 [facility] Comment on above: Performed By: #### R ENAL ####[id number] [place] [address] Creatinine [Mass/Vol] 1.21 mg/dL Normal 0.50 - 1.30 [facility] Comment on above: Performed By: #### R ENAL ####[id number] [place] [address] GFR/1.73 sq M.predicted among non-blacks MDRD (S/P/Bld) [Vol rate/Area] 76 mL/min/{1.73_m2} Normal >90 [facility] Comment on above: Result Comment: CALC ULATIONS OF ESTIMATED GFR ARE PERFORMED USING THE 2020 CKD-EPI STUDY REFIT EQUATION WITHOUT THE RACE VARIABLE FOR THE IDMS-TRACEABLE CREATININE METHODS.https://jasn.asnjournals.org/content/early//A SN.2774231715 Performed By: #### R ENAL ####[id number] [place] [address] Glucose [Mass/Vol] 94 mg/dL Normal 74 - 99 [facility] Comment on above: Performed By: #### R ENAL ####[id number] [place] [address] HCO3 (Bld) [Moles/Vol] 31 mmol/L Normal 21 - 32 [facility] Comment on above: Performed By: #### R ENAL ####[id number] [place] [address] Phosphate [Mass/Vol] 4.2 mg/dL Normal 2.5 - 4.9 [facility] Comment on above: Result Comment: The performance characteristics of phosphorus testing in heparinized plasma have been validated by the individual laboratory site where testing is performed. Testing on heparinized plasma is not approved by the FDA; however, such approval is not necessary. Performed By: #### R ENAL ####[id number] [place] [address] Potassium [Moles/Vol] 5.0 mmol/L Normal 3.5 - 5.3 [facility] Comment on above: Performed By: #### R ENAL ####[id number] [place] [address] Sodium [Moles/Vol] 136 mmol/L Normal 136 - 145 [facility] Comment on above: Performed By: #### R ENAL ####[id number] [place] [address] Urea nitrogen [Mass/Vol] 23 mg/dL Normal 6 - 23 [facility] Comment on above: Performed By: #### R ENAL ####[id number] [place] [address] Anion gap [Moles/Vol] 13 mmol/L Normal 10 - 20 [facility] Comment on above: Performed By: #### R ENAL ####[id number] [place] [address] Calcium [Mass/Vol] 8.5 mg/dL Low 8.6 - 10.6 [facility] Comment on above: Performed By: #### R ENAL ####[id number] [place] [address] Chloride [Moles/Vol] 99 mmol/L Normal 98 - 107 [facility] Comment on above: Performed By: #### R ENAL ####[id number] [place] [address] Creatinine [Mass/Vol] 1.15 mg/dL Normal 0.50 - 1.30 [facility] Comment on above: Performed By: #### R ENAL ####[id number] [place] [address] GFR/1.73 sq M.predicted among non-blacks MDRD (S/P/Bld) [Vol rate/Area] 81 mL/min/{1.73_m2} Normal >90 [facility] Comment on above: Result Comment: CALC ULATIONS OF ESTIMATED GFR ARE PERFORMED USING THE 2020 CKD-EPI STUDY REFIT EQUATION WITHOUT THE RACE VARIABLE FOR THE IDMS-TRACEABLE CREATININE METHODS.https://jasn.asnjournals.org/content//A SN.9958202092 Performed By: #### R ENAL ####[id number] [place] [address] Glucose [Mass/Vol] 94 mg/dL Normal 74 - 99 [facility] Comment on above: Performed By: #### R ENAL ####[id number] [place] [address] HCO3 (Bld) [Moles/Vol] 32 mmol/L Normal 21 - 32 [facility] Comment on above: Performed By: #### R ENAL ####[id number] [place] [address] Phosphate [Mass/Vol] 4.7 mg/dL Normal 2.5 - 4.9 [facility] Comment on above: Result Comment: The performance characteristics of phosphorus testing in heparinized plasma have been validated by the individual laboratory site where testing is performed. Testing on heparinized plasma is not approved by the FDA; however, such approval is not necessary. Performed By: #### R ENAL ####[id number] [place] [address] Potassium [Moles/Vol] 5.0 mmol/L Normal 3.5 - 5.3 [facility] Comment on above: Performed By: #### R ENAL ####[id number] [place] [address] Sodium [Moles/Vol] 139 mmol/L Normal 136 - 145 [facility] Comment on above: Performed By: #### R ENAL ####[id number] [place] [address] Urea nitrogen [Mass/Vol] 26 mg/dL High 6 - 23 [facility] Comment on above: Performed By: #### R ENAL ####[id number] [place] [address] S.PNEUMONIAE AG,Uon 08-11-19 23 S.PNEUMONIAE AG,U Negative Normal Negative [facility] Comment on above: Result Comment: Pres umptive negative for pneumococcal pneumonia, suggesting no current or recent infection. Infection due to S. pneumoniae cannot be ruled out since the antigen present in the sample may be below the detection limit of the test. Performed By: #### S PNAG ####[id number] [place] [address] TH ABDOMEN AP VIEWon 08-10-2 023 ABDOMEN AP VIEW Normal [facility] TH CHEST 1 VIEWon 06-28-2023 TH CHEST 1 VIEW Normal [facility] TH CT ANGIO CHEST FOR PEon 0 08-10-2022 CT ANGIO CHEST FOR PE Normal [facility] TROPONIN I, HIGH SENSITIVITY on 08-10-2022 TROPONIN I, HIGH SENSITIVITY 13 ng/L Normal 0 - 53 [facility] Comment on above: Result Comment: .Les s [...] is performed using a differenttesting methodology at [facility] than at [facility]. Direct result comparisons should onlybe made within the same method. Performed By: #### T [facility] ####[id number] [place] [address] TYPE + SCREENon 08-10-2022 ABO TYPE O Normal [facility] Comment on above: Performed By: #### T +S ####[id number] [id number] RH TYPE Positive Normal [facility] Comment on above: Performed By: #### T +S ####[id number] [place] [address] VAS LAB Venous Duplex Ultra sound DVTon 08-10-2022 VAS LAB Venous Duplex Ultrasound DVT Normal [facility] LABORATORYOrdered By: Pam Paul on 08-09-2022 aPTT [...] Glucose Testing Reason Routine (08/05/22 8:00 AM) [facility] Glucose [Mass/Vol] 128 mg/dL Invalid Interpretation Code 70 - 110 mg/dL [facility] Blood Glucose Testing Reason Routine (08/05/22 4:30 AM) [facility] Glucose [Mass/Vol] 130 mg/dL Invalid Interpretation Code 70 - 110 mg/dL [facility] LABORATORYOrdered By: Thee Corey on 08-05-2022 Lactate [Moles/Vol] 0.9 mmol/L Invalid Interpretation Code 0.2 - 2.0 mmol/L [facility] LABORATORYOrdered By: [employer] on 08-04-2022 Albumin BCP dye [Mass/Vol] [...] Glucose Testing Reason Routine (08/04/22 11:33 AM) [facility] Glucose [Mass/Vol] 167 mg/dL Invalid Interpretation Code 70 - 110 mg/dL [facility] No Panel Informationon 08-03 Culture Urine No growth at [address] [facility] LABORATORYOrdered By: JOSE SHELIA CONTRIBUTOR_SYSTEM on 08-02-2022 Acetylcholine R/B Ql Negative Invalid Interpretation Code Negative [facility] Comment on above: Result Comment: Anti -acetylcholine receptor binding antibody test is used as an aid in diagnosis of myasthenia gravis. A negative result cannot exclude myasthenia gravis. Clinical correlation is required. Performed By: [facility] [place] [address] Dermatopathologist: Gualberto Gordon III, M.D. CLIA#: [id number] Acetylcholine Rec/Bind nmol/L Invalid Interpretation Code <0.21nmol/L [facility] Comment on above: Result Comment: Perf ormed By: [facility] [employer] [facility] [place] [address] Dermatopathologist: Gualberto Gordon III, M.D. CLIA#: [id number] LABORATORYOrdered By: Avis Smith on 08-02-2022 Fibrinogen [...] - Microbiology an d Antimicrobial susceptibilityOrdered By: [facility] MICROBIOLOGY on 08-02-2022 Bacteria identified Cx Nom (Bld) Culture has been received in lab and is no growth to date. Culture will be held for four weeks. [facility] No Panel Informationon 08-02 Legionella Urine Ag Presumptive negative for L. pneumophila serogroup 1 antigen in urine, suggesting no recent or current infection. Legionnaire's disease cannot be ruled out since other serogroups and species may also cause disease. [facility] Streptococcus Pneumoniae Urine Antig Presumptive negative for pneumococcal pneumonia, suggesting no current or recent pneumococcal infection. Infection due to Strep pneumoniae cannot be ruled out since the antigen present in the sample may be below the detection limit of the test. [facility] Comment on above: This test has not [...] 08-01 GSAER Gram Positive Cocci in clusters [facility] Microscopic examination of blood, culture Staphylococcus coagulase negative Isolated from aerobe bottle only. 1 of 2 sets positive. Organism is a potential contaminant. Clinical Significance undetermined. Please contact Microbiology if further work-up is required. [facility] Microscopic examination of blood, culture Blood Culture: No Growth at [address] [facility] LABORATORYOrdered By: SYSTEM SYSTEM on 06-09-2022 Albumin [...] Interpretation Code 98 - 110 mEq/L [facility] SS CO2 [Moles/Vol] 23 mmol/L Invalid Interpretation Code 22 - 32 mEq/L [facility] SS Creatinine [Mass/Vol] 1.22 mg/dL Invalid Interpretation Code 0.60 - 1.40 mg/dL [facility] SS Electrolyte Balance 7.0 mEq/L Invalid Interpretation Code 4.0 - 15.0 mEq/L [facility] Glucose [Mass/Vol] 110 mg/dL Invalid Interpretation Code 70 - 110 mg/dL [facility] Potassium [Moles/Vol] 4.6 mmol/L Invalid Interpretation Code 3.5 - 5.0 mEq/L [facility] SS Sodium [Moles/Vol] 131 mmol/L Invalid Interpretation Code 136 - 145 mEq/L [facility] SS Urea nitrogen [Mass/Vol] 15.4 mg/dL Invalid Interpretation Code 8.0 - 22.0 mg/dL [facility] LABORATORYOrdered By: SYSTEM SYSTEM on 12-23-2021 [...] 16:54-0400 Blood Pressure Location DONNA MOCK MD [facility] 11-25-2024 16:54-0400 Blood Pressure Method DONNA MOCK MD [facility] 11-25-2024 16:54-0400 Body temperature 96.98 [degF] DONNA MOCK MD [facility] 11-25-2024 16:54-0400 Body weight 122.7 kg DONNA MOCK MD [facility] 11-25-2024 16:54-0400 Diastolic Blood Pressure Non-Invasive 90 mm[Hg] DONNA MOCK MD [facility] 11-25-2024 16:54-0400 Heart rate 97 /min DONNA MOCK MD [facility] 11-25-2024 16:54-0400 Respiratory rate 16 /min DONNA MOCK MD [facility] 11-25-2024 16:54-0400 Systolic Blood Pressure Non-Invasive 126 mm[Hg] DONNA MOCK MD [facility] 11-19-2024 11:00-0400 Diastolic Blood Pressure Non-Invasive 77 mm[Hg] DR BHAVIK TRIANA MD [facility] 11-19-2024 11:00-0400 Heart rate 65 /min DR BHAVIK TRIANA MD [facility] 11-19-2024 11:00-0400 Reason For Taking VItal Signs DR BHAVIK TRIANA MD [facility] 11-19-2024 11:00-0400 Systolic Blood Pressure Non-Invasive 145 mm[Hg] DR BHAVIK TRIANA MD [facility] 11-19-2024 09:58-0400 Respiratory rate 18 /min DR BHAVIK TRIANA MD [facility] 11-19-2024 09:57-0400 Body height 172.[address] BHAVIK TRIANA MD [facility] 11-19-2024 09:57-0400 Body weight 43.99 kg/m2 DR BHAVIK TRIANA MD [facility] 11-19-2024 09:57-0400 Body weight 131.[address] BHAVIK TRIANA MD [facility] 11-19-2024 09:32-0400 Body temperature 97.52 [degF] DR BHAVIK TRIANA MD [facility] 11-19-2024 09:32-0400 Diastolic Blood Pressure Non-Invasive 78 mm[Hg] DR BHAVIK TRIANA MD [facility] 11-19-2024 09:32-0400 Heart rate 66 /min DR BHAVIK TRIANA MD [facility] 11-19-2024 09:32-0400 Systolic Blood Pressure Non-Invasive 144 mm[Hg] DR BHAVIK TRIANA MD [facility] 11-19-2024 08:27-0400 Body weight 131.[address] BHAVIK TRIANA MD [facility] 06-05-2024 14:02-0400 Diastolic Blood Pressure Non-Invasive 60 mm[Hg] [employer] [facility] 06-05-2024 14:02-0400 Heart rate 64 /min [employer] [facility] 06-05-2024 14:02-0400 Systolic Blood Pressure Non-Invasive 98 mm[Hg] [employer] OUTSIDE-[employer] [facility] 06-05-2024 12:53-0400 Body height 172.2 cm EZEQUIELLUC LEAL [employer] OUTSIDE-APPARATUS REPAIR [employer] [facility] 06-05-2024 12:53-0400 Body weight 134.3 kg [employer] OUTSIDE-[employer]PARAT[employer] [facility] 06-05-2024 12:53-0400 Body weight 45.29 kg/m2 [employer] [facility] 06-05-2024 12:39-0400 Body temperature 97.7 [degF] [employer] OUTSIDE[employer] [facility] 06-05-2024 12:39-0400 Diastolic Blood Pressure Non-Invasive 72 mm[Hg] [employer] OUTS[employer] [facility] 06-05-2024 12:39-0400 Heart rate 66 /min [employer] OUTSIDE[employer]PARAT[employer] [facility] 06-05-2024 12:39-0400 Systolic Blood Pressure Non-Invasive 105 mm[Hg] [employer] E[employer]RICIAN OUTSIDE-APPARATUS REPAIR [employer]CHANIC [facility] 06-05-2024 10:14-0400 Body weight 134.3 kg EZEQU[employer]EL [employer] E[employer]RICIAN OUTSIDE-APPARATUS REPAIR [employer]CH[employer]IC [facility] 04-30-2024 14:35-0400 Respiratory rate 18 /min DR BHAVIK TRIANA MD [facility] 04-30-2024 14:34-0400 Body height 172.[address] BHAVIK TRIANA MD [facility] 04-30-2024 14:34-0400 Body weight 132.[address] BHAVIK TRIANA MD [facility] 04-30-2024 14:34-0400 Body weight 44.78 kg/m2 DR BHAVIK TRIANA MD [facility] 04-30-2024 14:31-0400 Blood Pressure Cuff Size DR BHAVIK TRIANA MD [facility] 04-30-2024 14:31-[address] BHAVIK TRIANA MD [facility] 04-30-2024 14:31-[address] BHAVIK TRIANA MD [facility] 04-30-2024 14:31-0400 Body temperature 97.34 [degF] DR BHAVIK TRIANA MD [facility] 04-30-2024 14:31-0400 Diastolic Blood Pressure Non-Invasive 71 mm[Hg] DR BHAVIK TRIANA MD [facility] 04-30-2024 14:31-0400 Heart rate 68 /min DR BHAVIK TRIANA MD [facility] 04-30-2024 14:31-0400 Systolic Blood Pressure Non-Invasive 124 mm[Hg] DR BHAVIK TRIANA MD [facility] 04-30-2024 12:56-0400 Body weight 132.[address] BHAVIK TRIANA MD [facility] 04-02-2024 15:15-0500 Body height 172 cm [employer] OUTS[employer]AT[employer] [facility] 04-02-2024 15:15-0500 Body weight 138.2 kg [employer] OUTSIDE-APPARATUS REPAIR [employer] [facility] 04-02-2024 15:15-0500 Body weight 46.71 kg/m2 [employer] OUTS[employer]AT[employer] [facility] 04-02-2024 15:14-0500 Diastolic Blood Pressure Non-Invasive 59 mm[Hg] [employer] OUTSIDE-[employer]PARATUS REPAIR [employer]CH[employer] [facility] 04-02-2024 15:14-0500 Heart rate 62 /min [employer] OUTS[employer]PARAT[employer] RE[employer]IR [employer] [facility] 04-02-2024 15:14-0500 Systolic Blood Pressure Non-Invasive 116 mm[Hg] EZE[employer]EL [employer] OUTSIDE-APPARATUS REPAIR [employer]CH[employer] [facility] 04-02-2024 14:13-0500 Blood Pressure Cuff Size [employer] OUTS[employer]PARAT[employer] RE[employer]IR [employer] [facility] 04-02-2024 14:13-0500 Blood Pressure Location EZE[employer]EL [employer] OUTSIDE[employer]PARAT[employer] [facility] 04-02-2024 14:13-0500 Blood Pressure Method [employer] OUTSIDE-APPARATUS RE[employer]IR [employer] [facility] 04-02-2024 14:13-0500 Body temperature 97.7 [degF] EZE[employer]EL [employer] OUTSIDE[employer]PARAT[employer]IR [employer] [facility] 04-02-2024 14:13-0500 Diastolic Blood Pressure Non-Invasive 61 mm[Hg] EZEQU[employer]EL [employer] OUTSIDE-[employer]PARAT[employer] REPAIR [employer] [facility] 04-02-2024 14:13-0500 Heart rate 67 /min [employer]EL [employer] OUTSIDE-[employer]PARAT[employer] RE[employer]IR [employer] [facility] 04-02-2024 14:13-0500 Systolic Blood Pressure Non-Invasive 116 mm[Hg] E[employer]EL [employer] OUTSIDE-APPARATUS REPAIR [employer]CH[employer] [facility] 04-02-2024 11:06-0500 Body weight 138.2 kg [employer] OUTSIDE-[employer]PARATUS REPAIR [employer]CH[employer] [facility] 03-04-2024 14:16-0500 Diastolic Blood Pressure Non-Invasive 51 mm[Hg] DR BHAVIK TRIANA MD [facility] 03-04-2024 14:16-0500 Heart rate 67 /min DR BHAVIK TRIANA MD [facility] 03-04-2024 14:16-0500 Systolic Blood Pressure Non-Invasive 109 mm[Hg] DR BHAVIK TRIANA MD [facility] 03-04-2024 13:37-0500 Body height 172.[address] BHAVIK TRIANA MD [facility] 03-04-2024 13:37-0500 Body weight 135.[address] BHAVIK TRIANA MD [facility] 03-04-2024 13:37-0500 Body weight 45.5 kg/m2 DR BHAVIK TRIANA MD [address] [place] [address] 03-04-2024 13:34-0500 Body temperature 98.24 [degF] DR BHAVIK TRIANA MD [address] [place] [address] 03-04-2024 13:34-0500 Diastolic Blood Pressure Non-Invasive 62 mm[Hg] DR BHAVIK TRIANA MD [address] [place] [address] 03-04-2024 13:34-0500 Heart rate 70 /min DR BHAVIK TRIANA MD [address] 03-04-2024 13:34-0500 Systolic Blood Pressure Non-Invasive 120 mm[Hg] DR BHAVIK TRIANA MD [facility] 03-04-2024 11:53-0500 Body weight 135.[address] BHAVIK TRIANA MD [facility] 02-05-2024 15:26-0500 Diastolic Blood Pressure Non-Invasive 62 mm[Hg] EZE[employer]EL [employer] OUTSIDE-[employer]PARAT[employer] REPAIR [employer] [facility] 02-05-2024 15:26-0500 Heart rate 63 /min EZE[employer]IEL [employer] OUTSIDE-APPARATUS REPAIR MECHANIC [facility] 02-05-2024 15:26-0500 Systolic Blood Pressure Non-Invasive 109 mm[Hg] EZEQUIEL LEAL E[employer] OUTSIDE-APPARATUS REPAIR MECHANIC [facility] 02-05-2024 13:54-0500 Body height 172.7 cm [employer] OUTSIDE-APPARATUS REPAIR MECHANIC [facility] 02-05-2024 13:54-0500 Body weight 139.4 kg [employer]ZE[employer]EL [employer] OUTSIDE-APPARATUS REPAIR MECHANIC [facility] 02-05-2024 13:54-0500 Body weight 46.74 kg/m2 [employer] E[employer]RICIAN OUTSIDE-APPARATUS REPAIR MECHANIC [facility] 02-05-2024 13:44-0500 Body temperature 97.52 [degF] [employer] E[employer]RICIAN OUTSIDE-APPARATUS REPAIR MECHANIC [facility] 02-05-2024 13:44-0500 Diastolic Blood Pressure Non-Invasive 65 mm[Hg] [employer]IAN OUTSIDE-APPARATUS REPAIR MECHANIC [facility] 02-05-2024 13:44-0500 Heart rate 65 /min [employer]IAN OUTSIDE-APPARATUS REPAIR MECHANIC [facility] 02-05-2024 13:44-0500 Systolic Blood Pressure Non-Invasive 118 mm[Hg] [employer]IAN OUTSIDE-APPARATUS REPAIR MECHANIC [facility] 02-05-2024 09:26-0500 Body weight 139.4 kg [employer] ELECTRICIAN OUTSIDE-APPARATUS REPAIR MECHANIC [facility] 01-25-2024 00:59-0500 Blood Pressure Location NORMA GARCIA DO [facility] 01-25-2024 00:59-0500 Blood Pressure Method NORMA GARCIA DO [facility] 01-25-2024 00:59-0500 Body height 172.7 cm NORMA GARCIA DO [facility] 01-25-2024 00:59-0500 Body temperature 98.06 [degF] NORMA GARCIA DO [facility] 01-25-2024 00:59-0500 Body weight 136.4 kg NORMA GARCIA DO [facility] 01-25-2024 00:59-0500 Diastolic Blood Pressure Non-Invasive 54 mm[Hg] NORMA GARCIA DO [facility] 01-25-2024 00:59-0500 Heart rate 78 /min NORMA BOYERT DO [facility] 01-25-2024 00:59-0500 Respiratory rate 16 /min [facility] 01-25-2024 00:59-0500 Systolic Blood Pressure Non-Invasive 111 mm[Hg] [facility] 12-21-2023 10:52-0500 Diastolic Blood Pressure Non-Invasive 65 mm[Hg] [employer]EL [employer] E[employer]IAN OUTSIDE-APPARATUS REPAIR MECHANIC [facility] 12-21-2023 10:52-0500 Heart rate 80 /min EZEQUIEL [employer]AL [employer] OUTSIDE-APPARATUS REPAIR MECHANIC [facility] 12-21-2023 10:52-0500 Respiratory rate 16 /min [employer]EL [employer] OUTSIDE-APPARATUS REPAIR MECHANIC [facility] 12-21-2023 10:52-0500 Systolic Blood Pressure Non-Invasive 120 mm[Hg] [employer]EL [employer] E[employer] OUTSIDE-APPARATUS REPAIR MECHANIC [facility] 12-21-2023 09:59-0500 Body height 175.3 cm [employer] OUTSIDE-APPARATUS REPAIR MECHANIC [facility] 12-21-2023 09:59-0500 Body weight 139.4 kg [employer] OUTSIDE-APPARATUS REPAIR MECHANIC [facility] 12-21-2023 09:59-0500 Body weight 45.36 kg/m2 [employer] OUTSIDE-APPARATUS REPAIR MECHANIC [facility] 12-21-2023 09:56-0500 Body temperature 98.24 [degF] E[employer]EL [employer]AL E[employer] OUTSIDE-APPARATUS REPAIR MECHANIC [facility] 12-21-2023 09:56-0500 Diastolic Blood Pressure Non-Invasive 65 mm[Hg] [employer] OUTSIDE-[employer]PARAT[employer] REPAIR MECHANIC [facility] [facility] 12-21-2023 09:56-0500 Heart rate 66 /min EZEQUIELOoshot ELECTRICIAN OUTSIDE-APPARATUS REPAIR MECHANIC [facility] 12-21-2023 09:56-0500 Systolic Blood Pressure Non-Invasive 118 mm[Hg] EZEQUIEL LEAL ELECTRICIAN OUTSIDE-APPARATUS REPAIR MECHANIC [facility] 12-21-2023 09:05-0500 Body weight 139.4 kg EZEQUIELOoshot ELECTRICIAN OUTSIDE-APPARATUS REPAIR MECHANIC [facility] 11-16-2023 13:32-0400 Diastolic Blood Pressure Non-Invasive 58 mm[Hg] DR BHAVIK TRIANA MD [facility] 11-16-2023 13:32-0400 Heart rate 60 /min DR BHAVIK TRIANA MD [facility] 11-16-2023 13:32-0400 Reason For Taking VItal Signs DR BHAVIK TRIANA MD [facility] 11-16-2023 13:32-0400 Respiratory rate 20 /min DR BHAVIK TRIANA MD [facility] 11-16-2023 13:32-0400 Systolic Blood Pressure Non-Invasive 109 mm[Hg] DR BHAVIK TRIANA MD [facility] 11-16-2023 11:33-0400 Body height 172.[address] BHAVIK TRIANA MD [facility] 11-16-2023 11:33-0400 Body weight [address] BHAVIK TRIANA MD [facility] 11-16-2023 11:33-0400 Body weight 47.61 kg/m2 DR BHAVIK TRIANA MD [facility] 11-16-2023 11:32-0400 Body temperature 97.34 [degF] DR BHAVIK TRIANA MD [facility] 11-16-2023 11:32-0400 Diastolic Blood Pressure Non-Invasive 67 mm[Hg] DR BHAVIK TRIANA MD [facility] 11-16-2023 11:32-0400 Heart rate 61 /min DR BHAVIK TRIANA MD [facility] 11-16-2023 11:32-0400 Reason For Taking VItal Signs DR BHAVIK TRIANA MD [address] [place] [address] 11-16-2023 11:32-0400 Respiratory rate 20 /min DR BHAVIK TRIANA MD [address] [place] [address] 11-16-2023 11:32-0400 Systolic Blood Pressure Non-Invasive 100 mm[Hg] DR BHAVIK TRIANA MD [facility] 11-16-2023 10:23-0400 Body weight [address] BHAVIK TRIANA MD [address] [place] [address] 10-31-2023 09:45-0400 Diastolic Blood Pressure Non-Invasive 52 mm[Hg] NOAH SEPULVEDA MD [address] 10-31-2023 09:45-0400 Heart rate 60 /min NOAH SEPULVEDA MD [address] 10-31-2023 09:45-0400 Systolic Blood Pressure Non-Invasive 98 mm[Hg] NOAH SEPULVEDA MD [facility] 10-31-2023 09:26-0400 Diastolic Blood Pressure Non-Invasive 62 mm[Hg] NOAH SEPULVEDA MD [facility] 10-31-2023 09:26-0400 Heart rate 60 /min NOAH SEPULVEDA MD [facility] 10-31-2023 09:26-0400 Systolic Blood Pressure Non-Invasive 112 mm[Hg] NOAH SEPULVEDA MD [facility] 10-31-2023 09:00-0400 Diastolic Blood Pressure Non-Invasive 64 mm[Hg] NOAH SEPULVEDA MD [facility] 10-31-2023 09:00-0400 Heart rate 57 /min NOAH SEPULVEDA MD [facility] 10-31-2023 09:00-0400 Systolic Blood Pressure Non-Invasive 111 mm[Hg] NOAH SEPULVEDA MD [address] [place] [address] 10-31-2023 06:10-0400 Blood Pressure Location NOAH SEPULVEDA MD [address] [place] [address] 10-31-2023 06:10-0400 Blood Pressure Method NOAH SEPULVEDA MD [address] [place] [address] 10-31-2023 06:10-0400 Body height 172.7 cm NOAH SEPULVEDA MD [address] [place] [address] 10-31-2023 06:10-0400 Body temperature 97.7 [degF] NOAH SEPULVEDA MD [address] 10-31-2023 06:10-0400 Body weight 150.5 kg NOAH SEPULVEDA MD [address] 10-31-2023 06:10-0400 Respiratory rate 16 /min NOAH SEPULVEDA MD [facility] 10-26-2023 14:11-0400 Body height 172.2 cm NORMA GARCIA DO [facility] 10-26-2023 14:11-0400 Body temperature 96.8 [degF] NORMA GARCIA DO [facility] 10-26-2023 14:11-0400 Body weight 154.2 kg NORMA GARCIA DO [facility] 10-26-2023 14:11-0400 Diastolic Blood Pressure Non-Invasive 78 mm[Hg] NORMA GARCIA DO [facility] 10-26-2023 14:11-0400 Heart rate 74 /min NORMA GARCIA DO [facility] 10-26-2023 14:11-0400 Respiratory rate 18 /min NORMA GARCIA DO [facility] 10-26-2023 14:11-0400 Systolic Blood Pressure Non-Invasive 130 mm[Hg] NORMA GARCIA DO [facility] 10-19-2023 15:26-0400 Diastolic Blood Pressure Non-Invasive 66 mm[Hg] DR BHAVIK TRIANA MD [facility] 10-19-2023 15:26-0400 Heart rate 65 /min DR BHAVIK TRIANA MD [address] 10-19-2023 15:26-0400 Systolic Blood Pressure Non-Invasive 109 mm[Hg] DR BHAVIK TRIANA MD [facility] 10-19-2023 14:41-0400 Body temperature 98.06 [degF] DR BHAVIK TRIANA MD [address] [place] [address] 10-19-2023 14:41-0400 Diastolic Blood Pressure Non-Invasive 57 mm[Hg] DR BHAVIK TRIANA MD [facility] 10-19-2023 14:41-0400 Heart rate 65 /min DR BHAVIK TRIANA MD [address] [place] [address] 10-19-2023 14:41-0400 Respiratory rate 20 /min DR BHAVIK TRIANA MD [address] [place] [address] 10-19-2023 14:41-0400 Systolic Blood Pressure Non-Invasive 100 mm[Hg] DR BHAVIK TRIANA MD [address] [place] [address] 10-19-2023 14:31-0400 Body height 172.[address] BHAVIK TRIANA MD [address] [place] [address] 10-19-2023 14:31-0400 Body weight 153.[address] BHAVIK TRIANA MD [facility] 10-19-2023 14:31-0400 Body weight 51.33 kg/m2 DR BHAVIK TRIANA MD [facility] 10-19-2023 11:37-0400 Body weight 153.[address] BHAVIK TRIANA MD [facility] 09-25-2023 15:08-0400 Blood Pressure Cuff Size REGINA SANCHEZ MD [facility] 09-25-2023 15:08-0400 Blood Pressure Location REGINA SANCHEZ MD [address] [place] [id number] 09-25-2023 15:08-0400 Blood Pressure Method REGINA SANCHEZ MD [address] [place] [id number] 09-25-2023 15:08-0400 Body temperature 98.24 [degF] REGINA SANCHEZ MD [address] [place] [id number] 09-25-2023 15:08-0400 Diastolic Blood Pressure Non-Invasive 85 mm[Hg] REGINA SANCHEZ MD [address] [place] [id number] 09-25-2023 15:08-0400 Heart rate 64 /min REGINA SANCHEZ MD [address] [place] [id number] 09-25-2023 15:08-0400 Reason For Taking VItal Signs REGINA SANCHEZ MD [facility] 09-25-2023 15:08-0400 Respiratory rate 18 /min REGINA SANCHEZ MD [facility] 09-25-2023 15:08-0400 Systolic Blood Pressure Non-Invasive 131 mm[Hg] REGINA SANCHEZ MD [facility] 09-25-2023 09:15-0400 Heart rate 56 /min REGINA SANCHEZ MD [facility] 09-25-2023 06:46-0400 Blood Pressure Cuff Size REGINA SANCHEZ MD [facility] 09-25-2023 06:46-0400 Blood Pressure Location REGINA SANCHEZ MD [address] [place] [address] 09-25-2023 06:46-0400 Blood Pressure Method REGINA SANCHEZ MD [address] 09-25-2023 06:46-0400 Diastolic Blood Pressure Non-Invasive 68 mm[Hg] REGINA SANCHEZ MD [address] [place] [address] 09-25-2023 06:46-0400 Heart rate 62 /min REGINA SANCHEZ MD [address] [place] [address] 09-25-2023 06:46-0400 Reason For Taking VItal Signs REGINA SANCHEZ MD [address] [place] [address] 09-25-2023 06:46-0400 Respiratory rate 18 /min REGINA SANCHEZ MD [address] [place] [address] 09-25-2023 06:46-0400 Systolic Blood Pressure Non-Invasive 138 mm[Hg] REGINA SANCHEZ MD [address] [place] [address] 09-24-2023 21:28-0400 Blood Pressure Cuff Size REGINA SANCHEZ MD [address] 09-24-2023 21:28-0400 Blood Pressure Location REGINA SANCHEZ MD [address] 09-24-2023 21:28-0400 Blood Pressure Method REGINA SANCHEZ MD [address] [place] [id number] 09-24-2023 21:28-0400 Body temperature 97.52 [degF] REGINA SANCHEZ MD [address] [place] [address] 09-24-2023 21:28-0400 Diastolic Blood Pressure Non-Invasive 60 mm[Hg] REGINA SANCHEZ MD [address] 09-24-2023 21:28-0400 Heart rate 72 /min REGINA SANCHEZ MD [address] [place] [address] 09-24-2023 21:28-0400 Reason For Taking VItal Signs REGINA SANCHEZ MD [address] [place] [id number] 09-24-2023 21:28-0400 Respiratory rate 17 /min REGINA SANCHEZ MD [address] [place] [address] 09-24-2023 21:28-0400 Systolic Blood Pressure Non-Invasive 121 mm[Hg] REGINA SANCHEZ MD [address] 09-24-2023 17:06-0400 Heart rate 74 /min REGINA SANCHEZ MD [address] [place] [address] 09-24-2023 14:37-0400 Body temperature 98.96 [degF] REGINA SANCHEZ MD [address] [place] [address] 09-24-2023 14:37-0400 Heart rate 62 /min REGINA SANCHEZ MD [address] [place] [address] 09-23-2023 08:43-0400 Body weight 163.7 kg REGINA SANCHEZ MD [address] [place] [address] 09-22-2023 15:27-0400 Heart rate 69 /min REGINA SANCHEZ MD [address] [place] [address] 09-22-2023 07:49-0400 Body weight 158.2 kg REGINA SANCHEZ MD [address] [place] [address] 09-22-2023 07:15-0400 Body temperature 96.62 [degF] REGINA SANCHEZ MD [address] [place] [address] 09-21-2023 23:17-0400 Heart rate 64 /min REGINA SANCHEZ MD [address] [place] [address] 09-21-2023 20:13-0400 Heart rate 72 /min REGINA SANCHEZ MD [address] [place] [address] 09-21-2023 18:03-0400 Body temperature 98.6 [degF] REGINA SANCHEZ MD [address] [place] [address] 09-21-2023 11:49-0400 SaO2% (BldA) [Mass fraction] 98.1 % REGINA SANCHEZ MD [facility] 09-21-2023 06:06-0400 Body weight 168.3 kg REGINA SANCHEZ MD [facility] 09-20-2023 06:59-0400 Mean blood pressure 99 mm[Hg] REGINA SANCHEZ MD [facility] 09-18-2023 16:39-0400 Body temperature 97.88 [degF] REGINA SANCHEZ MD [facility] 09-18-2023 16:18-0400 Body temperature 93.02 [degF] REGINA SANCHEZ MD [facility] 09-18-2023 02:04-0400 Body height 172.7 cm REGINA SANCHEZ MD [facility] 09-18-2023 02:04-0400 Body weight 64.78 kg/m2 REGINA SANCHEZ MD [facility] 09-17-2023 23:08-0400 Body temperature 97.52 [degF] MURALI MAGANA ELECTRICIAN OUTSIDE-APPARATUS REPAIR MECHANIC [facility] 09-17-2023 23:08-0400 Diastolic Blood Pressure Non-Invasive 90 mm[Hg] MURALI MAGANA ELECTRICIAN OUTSIDE-APPARATUS REPAIR MECHANIC [facility] 09-17-2023 23:08-0400 Heart rate 74 /min MURALI MAGANA ELECTRICIAN OUTSIDE-APPARATUS REPAIR MECHANIC [facility] 09-17-2023 23:08-0400 Reason For Taking VItal Signs MURALI MAGANA ELECTRICIAN OUTSIDE-APPARATUS REPAIR MECHANIC [facility] Comment on above: Result Comment: Patient being transferre d 09-17-2023 23:08-0400 Respiratory rate 20 /min MURALI MAGANA ELECTRICIAN OUTSIDE-APPARATUS REPAIR MECHANIC [facility] 09-17-2023 23:08-0400 Systolic Blood Pressure Non-Invasive 160 mm[Hg] MURALI KAPPER ELECTRICIAN OUTSIDE-APPARATUS REPAIR MECHANIC [facility] 09-17-2023 19:38-0400 Diastolic Blood Pressure Non-Invasive 92 mm[Hg] MURALI KAPPER ELECTRICIAN OUTSIDE-APPARATUS REPAIR MECHANIC [facility] 09-17-2023 19:38-0400 Systolic Blood Pressure Non-Invasive 155 mm[Hg] MURALI KAPPER ELECTRICIAN OUTSIDE-APPARATUS REPAIR MECHANIC [facility] 09-17-2023 19:03-0400 Body temperature 97.88 [degF] MURALI KAPPER ELECTRICIAN OUTSIDE-APPARATUS REPAIR MECHANIC [facility] 09-17-2023 19:03-0400 Diastolic Blood Pressure Non-Invasive 92 mm[Hg] MURALI KAPPER ELECTRICIAN OUTSIDE-APPARATUS REPAIR MECHANIC [facility] 09-17-2023 19:03-0400 Heart rate 64 /min MURALI KAPPER ELECTRICIAN OUTSIDE-APPARATUS REPAIR MECHANIC [facility] 09-17-2023 19:03-0400 Reason For Taking VItal Signs MURALI KAPPER ELECTRICIAN OUTSIDE-APPARATUS REPAIR MECHANIC [facility] 09-17-2023 19:03-0400 Respiratory rate 20 /min MURALI KAPPER ELECTRICIAN OUTSIDE-APPARATUS REPAIR MECHANIC [facility] 09-17-2023 19:03-0400 Systolic Blood Pressure Non-Invasive 162 mm[Hg] MURALI KAPPER ELECTRICIAN OUTSIDE-APPARATUS REPAIR MECHANIC [facility] 09-17-2023 16:45-0400 Heart rate 75 /min MURALI KAPPER ELECTRICIAN OUTSIDE-APPARATUS REPAIR MECHANIC [facility] 09-17-2023 16:32-0400 Heart rate 82 /min MURALI KAPPER ELECTRICIAN OUTSIDE-APPARATUS REPAIR MECHANIC [facility] 09-17-2023 16:31-0400 Body temperature 98.06 [degF] MURALI KAPPER ELECTRICIAN OUTSIDE-APPARATUS REPAIR MECHANIC [facility] 09-17-2023 16:31-0400 Heart rate 70 /min MURALI KAPPER ELECTRICIAN OUTSIDE-APPARATUS REPAIR MECHANIC [facility] 09-17-2023 16:31-0400 Reason For Taking VItal Signs MURALI MAGANA ELECTRICIAN OUTSIDE-APPARATUS REPAIR MECHANIC [facility] 09-17-2023 16:31-0400 Respiratory rate 20 /min MURALI MOYER ELECTRICIAN OUTSIDE-APPARATUS REPAIR MECHANIC [facility] 09-17-2023 08:30-0400 Heart rate 70 /min MURALI KAPPER ELECTRICIAN OUTSIDE-APPARATUS REPAIR MECHANIC [facility] 09-16-2023 23:00-0400 Heart rate 64 /min MURALI KAPPER ELECTRICIAN OUTSIDE-APPARATUS REPAIR MECHANIC [facility] 09-16-2023 18:13-0400 Body weight 193.2 kg MURALI KAPPER ELECTRICIAN OUTSIDE-APPARATUS REPAIR MECHANIC [address] [place] [address] 09-14-2023 16:20-0400 Heart rate 66 /min MURALI KAPPER ELECTRICIAN OUTSIDE-APPARATUS REPAIR MECHANIC [facility] 09-14-2023 10:30-0400 Heart rate 63 /min MURALI KAPPER ELECTRICIAN OUTSIDE-APPARATUS REPAIR MECHANIC [facility] 09-14-2023 06:22-0400 Body temperature 97.52 [degF] MURALI KAPPER ELECTRICIAN OUTSIDE-APPARATUS REPAIR MECHANIC [facility] 09-12-2023 15:31-0400 Body height 172.7 cm MURALI KAPPER ELECTRICIAN OUTSIDE-APPARATUS REPAIR MECHANIC [facility] 09-12-2023 15:31-0400 Body weight 196.3 kg MURALI WINTERISABELA ELECTRICIAN OUTSIDE-APPARATUS REPAIR MECHANIC [facility] 09-12-2023 15:31-0400 Body weight 65.82 kg/m2 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 [facility] 08-31-2023 17:49-0400 Diastolic Blood Pressure Non-Invasive 88 mm[Hg] MARIO COCHRAN MD [facility] 08-31-2023 17:49-0400 Heart rate 70 /min MARIO COCHRAN MD [facility] 08-31-2023 17:49-0400 Respiratory rate 16 /min MARIO COCHRAN MD [facility] 08-31-2023 17:49-0400 Systolic Blood Pressure Non-Invasive 146 mm[Hg] MARIO COCHRAN MD [facility] 08-31-2023 14:50-0400 Body temperature 97.7 [degF] MARIO COCHRAN MD [facility] 08-31-2023 14:50-0400 Body weight 181.8 kg MARIO COCHRAN MD [facility] 08-31-2023 14:50-0400 Diastolic Blood Pressure Non-Invasive 100 mm[Hg] MARIO COCHRAN MD [facility] 08-31-2023 14:50-0400 Heart rate 68 /min MARIO COCHRAN MD [facility] 08-31-2023 14:50-0400 Respiratory rate 16 /min MARIO COCHRAN MD [facility] 08-31-2023 14:50-0400 Systolic Blood Pressure Non-Invasive 158 mm[Hg] MARIO COCRHAN MD [facility] 08-24-2023 16:45-0400 Diastolic Blood Pressure Non-Invasive 90 mm[Hg] DR BHAVIK TRIANA MD [facility] 08-24-2023 16:45-0400 Heart rate 66 /min DR BHAVIK TRIANA MD [facility] 08-24-2023 16:45-0400 Respiratory Rate - Anes 18 br/min DR BHAVIK TRIANA MD [facility] 08-24-2023 16:45-0400 Systolic Blood Pressure Non-Invasive 152 mm[Hg] DR BHAVIK TRIANA MD [facility] 08-24-2023 16:02-0400 Diastolic Blood Pressure Non-Invasive 83 mm[Hg] DR BHAVIK TRIANA MD [facility] 08-24-2023 16:02-0400 Heart rate 68 /min DR BHAVIK TRIANA MD [facility] 08-24-2023 16:02-0400 Systolic Blood Pressure Non-Invasive 161 mm[Hg] DR BHAVIK TRIANA MD [facility] 08-24-2023 16:01-0400 Body temperature 97.34 [degF] DR BHAVIK TRIANA MD [facility] 08-24-2023 16:01-0400 Respiratory rate 18 /min DR BHAVIK TRIANA MD [facility] 08-24-2023 15:59-0400 Body height [address] BHAVIK TRIANA MD [facility] 07-27-2023 13:32-0400 Body weight 183.[address] BHAVIK TRIANA MD [facility] 02-16-2023 13:02-0500 Diastolic Blood Pressure Non-Invasive 84 mm[Hg] DR BHAVIK TRIANA MD [facility] 02-16-2023 13:02-0500 Heart rate 63 /min DR BHAVIK TRIANA MD [address] [place] [address] 02-16-2023 13:02-0500 Respiratory rate 18 /min DR BHAVIK TRIANA MD [address] [place] [address] 02-16-2023 13:02-0500 Systolic Blood Pressure Non-Invasive 144 mm[Hg] DR BHAVIK TRIANA MD [address] [place] [address] 02-16-2023 12:04-0500 Respiratory rate 18 /min DR BHAVIK TRIANA MD [address] 02-16-2023 12:03-0500 Body height 172.[address] BHAVIK TRIANA MD [address] 02-16-2023 12:03-0500 Body weight 177.[address] BHAVIK TRIANA MD [address] [place] [address] 02-16-2023 12:03-0500 Body weight 59.38 kg/m2 DR BHAVIK TRIANA MD [address] 02-16-2023 11:59-0500 Body temperature 97.7 [degF] DR BHAVIK TRIANA MD [address] 02-16-2023 11:59-0500 Diastolic Blood Pressure Non-Invasive 87 mm[Hg] DR BHAVIK TRIANA MD [address] [place] [address] 02-16-2023 11:59-0500 Heart rate 66 /min DR BHAVIK TRIANA MD [address] [place] [address] 02-16-2023 11:59-0500 Systolic Blood Pressure Non-Invasive 176 mm[Hg] DR BHAVIK TRIANA MD [address] [place] [address] 02-16-2023 10:11-0500 Body weight 177.[address] BHAVIK TRIANA MD [address] [place] [address] 01-19-2023 12:10-0500 Diastolic Blood Pressure Non-Invasive 98 mm[Hg] DR BHAVIK TRIANA MD [address] [place] [address] 01-19-2023 12:10-0500 Heart rate 86 /min DR BHAVIK TRIANA MD [address] [place] [address] 01-19-2023 12:10-0500 Respiratory rate 18 /min DR BHAVIK TRIANA MD [address] [place] [address] 01-19-2023 12:10-0500 Systolic Blood Pressure Non-Invasive 187 mm[Hg] DR BHAVIK TRIANA MD [address] 01-19-2023 11:28-0500 Body height 172.[address] BHAVIK TRIANA MD [address] 01-19-2023 11:28-0500 Body weight 169.[address] BHAVIK TRIANA MD [address] 01-19-2023 11:28-0500 Body weight 56.9 kg/m2 DR BHAVIK TRIANA MD [address] 01-19-2023 11:19-0500 Body temperature 97.52 [degF] DR BHAVIK TRIANA MD [address] 01-19-2023 11:19-0500 Diastolic Blood Pressure Non-Invasive 86 mm[Hg] DR BHAVIK TRIANA MD [address] [place] [address] 01-19-2023 11:19-0500 Heart rate 70 /min DR BHAVIK TRIANA MD [address] 01-19-2023 11:19-0500 Reason For Taking VItal Signs DR BHAVIK TRIANA MD [address] [place] [address] 01-19-2023 11:19-0500 Respiratory rate 16 /min DR BHAVIK TRIANA MD [address] 01-19-2023 11:19-0500 Systolic Blood Pressure Non-Invasive 146 mm[Hg] DR BHAVIK TRIANA MD [facility] 01-19-2023 09:55-0500 Body weight 169.[address] BHAVIK TRIANA MD [facility] 11-24-2022 12:24-0400 Diastolic Blood Pressure Non-Invasive [address] [facility] 11-24-2022 12:24-0400 Heart rate 64 /min DR BHAVIK TRIANA MD [facility] 11-24-2022 12:24-0400 Reason For Taking VItal Signs DR BHAVIK TRIANA MD [address] [place] [address] 11-24-2022 12:24-0400 Systolic Blood Pressure Non-Invasive [address] [facility] 11-24-2022 11:41-0400 Body height 172.[address] BHAVIK TRIANA MD [address] [place] [address] 11-24-2022 11:41-0400 Body weight 169.[address] BHAVIK TRIANA MD [address] [place] [address] 11-24-2022 11:41-0400 Body weight 56.76 kg/m2 DR BHAVIK TRIANA MD [facility] 11-24-2022 11:25-0400 Body temperature 98.06 [degF] DR BHAVIK TRIANA MD [facility] 11-24-2022 11:25-0400 Diastolic Blood Pressure Non-Invasive [address] BHAVIK TRIANA MD [address] [place] [address] 11-24-2022 11:25-0400 Heart rate 67 /min DR BHAVIK TRIANA MD [facility] 11-24-2022 11:25-0400 Systolic Blood Pressure Non-Invasive [address] [facility] 11-24-2022 11:25-0400 Reason For Taking VItal Signs DR BHAVIK TRIANA MD [facility] 11-24-2022 09:31-0400 Body weight 169.[address] BHAVIK TRIANA MD [facility] 10-27-2022 10:42-0400 Body temperature 97.34 [degF] DR BHAVIK TRIANA MD [facility] 10-27-2022 10:42-0400 Diastolic Blood Pressure Non-Invasive [address] [facility] 10-27-2022 10:42-0400 Heart rate 63 /min DR BHAVIK TRIANA MD [address] [place] [address] 10-27-2022 10:42-0400 Systolic Blood Pressure Non-Invasive [address] BHAVIK TRIANA MD [address] [place] [address] 10-27-2022 10:35-0400 Body height [address] BHAVIK TRIANA MD [address] [place] [address] 10-27-2022 10:35-0400 Body weight 176.[address] BHAVIK TRIANA MD [facility] 10-27-2022 10:35-0400 Body weight 59.01 kg/m2 DR BHAVIK TRIANA MD [facility] 10-27-2022 09:45-0400 Body weight 176.[address] BHAVIK TRIANA MD [facility] 09-29-2022 11:10-0400 Body temperature 97.34 [degF] DR BHAVIK TRIANA MD [facility] 09-29-2022 11:01-0400 Diastolic Blood Pressure Non-Invasive [address] [facility] 09-29-2022 11:01-0400 Heart rate 64 /min DR BHAVIK TRIANA MD [facility] 09-29-2022 11:01-0400 Systolic Blood Pressure Non-Invasive [address] [facility] 09-29-2022 10:52-0400 Body height 172.[address] BHAVIK TRIANA MD [facility] 09-29-2022 10:52-0400 Body weight 169.[address] BHAVIK TRIANA MD [facility] 09-29-2022 10:52-0400 Body weight 56.73 kg/m2 DR BHAVIK TRIANA MD [facility] 09-29-2022 09:08-0400 Body weight 169.[address] BHAVIK TRIANA MD [facility] 09-05-2022 09:58-0400 Body height 172.72 cm Prosper A Loki Work Phone: ED-Bljqytzcsb-Toh ma Work Phone: 09-05-2022 09:58-0400 Body mass index (BMI) [Ratio] 54.74 kg/m2 Prosper A Loki Work Phone: AO-Xhscooexww-Sug ma Work Phone: 09-05-2022 09:58-0400 Body surface area Derived from formula 2.62 m2 Prosper A Loki Work Phone: LC-Wtgcekanto-Gvj ma Work Phone: 09-05-2022 09:58-0400 Body weight 163.31 kg Prosper A Loik Work Phone: UL-Woenqswdjf-Npr ma Work Phone: 09-05-2022 09:58-0400 Diastolic blood pressure 58 mm[Hg] Prosper A Loki Work Phone: DJ-Qlaxvvfmcm-Beh ma Work Phone: 09-05-2022 09:58-0400 Heart rate 64 /min Prosper A Loki Work Phone: JP-Beatakbtwd-Hjf ma Work Phone: 09-05-2022 09:58-0400 SaO2% (BldA) [Mass fraction] 93 % Prosper A Loki Work Phone: GX-Kayxesalkw-Imb jb Work Phone: 09-05-2022 09:58-0400 Systolic blood pressure 122 mm[Hg] Prosper A Loki Work Phone: DC-Cphnplpekh-Xer ma Work Phone: 08-29-2022 11:44-0400 Body temperature 98.6 [degF] Prosper Loki Other Phone: [facility] 08-29-2022 11:44-0400 Diastolic blood pressure 68 mm[Hg] Prosper Loki Other Phone: [facility] 08-29-2022 11:44-0400 Heart rate 67 /min Prosper Loki Other Phone: [facility] 08-29-2022 11:44-0400 Respiratory rate 18 /min Prosper Loki Other Phone: [facility] 08-29-2022 11:44-0400 SaO2% (BldA) [Mass fraction] 93 % Prosper Loki Other Phone: [facility] 08-29-2022 11:44-0400 Systolic blood pressure 106 mm[Hg] Prosper Loki Other Phone: [facility] 08-29-2022 08:32-0400 Body weight 158.9 kg Prosper Loki Other Phone: [facility] 08-22-2022 08:38-0400 Body temperature 37.0 {degrees_C} Prosper A Loki Work Phone: [facility] Work Phone: Comment on above: NOTE: PATIENT RESULTS ARE NOT CORRECTED FOR TEMPERATURE. 08-22-2022 08:38-0400 SaO2% (BldA) [Mass fraction] 97 % Prosper A Loki Work Phone: [facility] Work Phone: 08-22-2022 03:32-0400 Body temperature 37.0 {degrees_C} Prosper A Loki Work Phone: [facility]yhjernhzv[facility]Crx [facility] Work Phone: Comment on above: NOTE: PATIENT RESULTS ARE NOT CORRECTED FOR TEMPERATURE. 08-22-2022 03:32-0400 SaO2% (BldA) [Mass fraction] 100 % Prosper A Loki Work Phone: [facility]owsm[facility]q [facility] Work Phone: 08-21-2022 18:12-0400 Body temperature 37.0 {degrees_C} Prosper A Loki Work Phone: [facility]al[facility]Rzp [facility] Work Phone: Comment on above: NOTE: PATIENT RESULTS ARE NOT CORRECTED FOR TEMPERATURE. 08-21-2022 18:12-0400 SaO2% (BldA) [Mass fraction] 97 % Prosper A Loki Work Phone: [facility]Kfzwcznyes[facility]Bbd [facility] Work Phone: 08-21-2022 11:24-0400 Body temperature 37.0 {degrees_C} Prosper A Loki Work Phone: QJ-Jfkewgxqjq-Rdp ma Work Phone: Comment on above: NOTE: PATIENT RESULTS ARE NOT CORRECTED FOR TEMPERATURE. 08-21-2022 11:24-0400 SaO2% (BldA) [Mass fraction] 97 % Prosper A Loki Work Phone: YP-Kxeymuxfdt-Spj [facility] Work Phone: 08-21-2022 05:59-0400 Body temperature 37.0 {degrees_C} Prosper A Loki Work Phone: [facility] Work Phone: Comment on above: NOTE: PATIENT RESULTS ARE NOT CORRECTED FOR TEMPERATURE. 08-21-2022 05:59-0400 SaO2% (BldA) [Mass fraction] 99 % Prosper Valenzuela Loki Work Phone: [facility] Work Phone: 08-09-2022 16:31-0400 Heart rate 127 /min JOI SORIANO MD [facility] 08-09-2022 15:45-0400 Body temperature 98.24 [degF] JOI SORIANO MD [facility] 08-09-2022 15:45-0400 Diastolic Blood Pressure Non-Invasive 95 [address] [facility] 08-09-2022 15:45-0400 Heart rate 127 /min JOI SORIANO MD [facility] 08-09-2022 15:45-0400 Reason For Taking VItal Signs JOI SORIANO MD [facility] 08-09-2022 15:45-0400 Respiratory rate 18 /min JOI SORIANO MD [facility] 08-09-2022 15:45-0400 Systolic Blood Pressure Non-Invasive 124 [address] [facility] 08-09-2022 11:55-0400 Heart rate 127 /min JOI SORIANO MD [facility] 08-09-2022 11:19-0400 Blood Pressure Location JOI SORIANO MD [facility] 08-09-2022 11:19-0400 Blood Pressure Method JOI SORIANO MD [facility] 08-09-2022 11:19-0400 Diastolic Blood Pressure Non-Invasive 98 [address] [facility] 08-09-2022 11:19-0400 Heart rate 122 /min JOI SORIANO MD [facility] 08-09-2022 11:19-0400 Respiratory rate 20 /min JOI SORIANO MD [facility] 08-09-2022 11:19-0400 Systolic Blood Pressure Non-Invasive 124 [address] [facility] 08-09-2022 11:15-0400 Blood Pressure Location JOI SORIANO MD [facility] 08-09-2022 11:15-0400 Blood Pressure Method JOI SORIANO MD [facility] 08-09-2022 11:15-0400 Diastolic Blood Pressure Non-Invasive 87 [address] [facility] 08-09-2022 11:15-0400 Respiratory rate 20 /min JOI SORIANO MD [facility] 08-09-2022 11:15-0400 Systolic Blood Pressure Non-Invasive 113 [address] [facility] 08-09-2022 08:03-0400 Heart rate 128 /min JOI SORIANO MD [facility] 08-09-2022 07:49-0400 Body temperature 98.42 [degF] JOI SORIANO MD [facility] 08-09-2022 07:49-0400 Mean blood pressure 98 mm[Hg] JOI SORIANO MD [facility] 08-09-2022 07:49-0400 Reason For Taking VItal Signs JOI SORIANO MD [facility] 08-09-2022 04:17-0400 Body temperature 98.24 [degF] JOI SORIANO MD [facility] 08-09-2022 04:17-0400 Mean blood pressure 97 mm[Hg] JOI SORIANO MD [facility] 08-09-2022 04:17-0400 Reason For Taking VItal Signs JOI SORIANO MD [facility] 08-09-2022 01:03-0400 Heart rate 129 /min JOI SORIANO MD [facility] 08-09-2022 00:53-0400 Heart rate 132 /min JOI SORIANO MD [facility] 08-08-2022 20:14-0400 Mean blood pressure 98 mm[Hg] JOI SORIANO MD [facility] 08-06-2022 23:15-0400 Body temperature 97.88 [degF] JOI SORIANO MD [facility] 08-06-2022 07:30-0400 SaO2% (BldA) [Mass fraction] 96.7 % JOI SORIANO MD [facility] 08-05-2022 15:04-0400 SaO2% (BldA) [Mass fraction] 78.8 % JOI SORIANO MD [facility] 08-04-2022 14:58-0400 SaO2% (BldA) [Mass fraction] 68.7 % JOI SORIANO MD [facility] 08-03-2022 12:12-0400 Blood Pressure Method JOI SORIANO MD [facility] 08-01-2022 22:16-0400 Body height 172 cm JOI SORIANO MD [facility] 08-01-2022 22:16-0400 Body weight 159 kg JOI SORIANO MD [facility] 08-01-2022 22:16-0400 Body weight 53.75 kg/m2 JOI SORIANO MD [facility] 08-01-2022 21:15-0400 Body temperature 98.96 [degF] JOHNSON DURESKA DO [facility] 08-01-2022 21:15-0400 Diastolic Blood Pressure Non-Invasive 104 1 JOHNSON DURESKA DO [facility] 08-01-2022 21:15-0400 Heart rate 136 /min JOHNSON DURESKA DO [facility] 08-01-2022 21:15-0400 Respiratory rate 24 /min JOHNSON DURESKA DO [facility] 08-01-2022 21:15-0400 Systolic Blood Pressure Non-Invasive 139 1 JOHNSON DURESKA DO [facility] 08-01-2022 21:06-0400 Body temperature 98.96 [degF] JOHNSON DURESKA DO [facility] 08-01-2022 21:06-0400 Diastolic Blood Pressure Non-Invasive 104 1 JOHNSON DURESKA DO [facility] 08-01-2022 21:06-0400 Heart rate 136 /min JOHNSON DURESKA DO [facility] 08-01-2022 21:06-0400 Respiratory rate 24 /min JOHNSON DURESKA DO [facility] 08-01-2022 21:06-0400 Systolic Blood Pressure Non-Invasive 139 1 JOHNSON DURESKA DO [facility] 08-01-2022 20:38-0400 Diastolic Blood Pressure Non-Invasive 88 1 JOHNSON DURESKA DO [facility] 08-01-2022 20:38-0400 Heart rate 138 /min JOHNSON DURESKA DO [facility] 08-01-2022 20:38-0400 Respiratory rate 24 /min JOHNSON DURESKA DO [facility] 08-01-2022 20:38-0400 Systolic Blood Pressure Non-Invasive 137 1 JOHNSON DURESKA DO [facility] 08-01-2022 19:00-0400 Heart rate 140 /min JOHNSON DURESKA DO [facility] 08-01-2022 18:28-0400 Heart rate 143 /min JOHNSON DURESKA DO [facility] 08-01-2022 18:08-0400 Heart rate 143 /min JOHNSON DURESKA DO [facility] 08-01-2022 15:58-0400 Heart rate 145 /min JOHNSNO DURESKA DO [facility] 08-01-2022 15:22-0400 Blood Pressure Location JOHNSON DURESKA DO [facility] 08-01-2022 15:22-0400 Body temperature 98.78 [degF] JOHNSON DURESKA DO [facility] 08-01-2022 15:22-0400 Body weight 159 kg JOHNSON DURESKA DO [facility] 06-09-2022 11:53-0400 Diastolic Blood Pressure Non-Invasive [address] [facility] 06-09-2022 11:53-0400 Heart rate 71 /min DR BHAVIK TRIANA MD [facility] 06-09-2022 11:53-0400 Respiratory rate 20 /min DR BHAVIK TRIANA MD [facility] 06-09-2022 11:53-0400 Systolic Blood Pressure Non-Invasive [address] [facility] 06-09-2022 11:10-0400 Body height 172.[address] BHAVIK TRIANA MD [address] [place] [address] 06-09-2022 11:10-0400 Body weight 166.[address] BHAVIK TRIANA MD [address] [place] [address] 06-09-2022 11:10-0400 Body weight 55.89 kg/m2 DR BHAVIK TRIANA MD [address] [place] [address] 06-09-2022 11:06-0400 Body temperature 97.7 [degF] DR BHAVIK TRIANA MD [address] [place] [address] 06-09-2022 11:06-0400 Diastolic Blood Pressure Non-Invasive [address] BHAVIK TRIANA MD [address] [place] [address] 06-09-2022 11:06-0400 Heart rate 77 /min DR BHAVIK TRIANA MD [address] [place] [address] 06-09-2022 11:06-0400 Systolic Blood Pressure Non-Invasive [address] BHAVIK TRIANA MD [address] [place] [address] 06-09-2022 10:54-0400 Body weight 166.[address] BHAVIK TRIANA MD [facility] 05-12-2022 11:37-0400 Diastolic Blood Pressure Non-Invasive [address] BHAVIK TRIANA MD [address] [place] [address] 05-12-2022 11:37-0400 Heart rate 74 /min DR BHAVIK TRIANA MD [address] [place] [address] 05-12-2022 11:37-0400 Respiratory rate 18 /min DR BHAVIK TRIANA MD [facility] 05-12-2022 11:37-0400 Systolic Blood Pressure Non-Invasive [address] BHAVIK TRIANA MD [address] [place] [address] 05-12-2022 10:27-0400 Body temperature 97.88 [degF] DR BHAVIK TRIANA MD [facility] 05-12-2022 10:27-0400 Diastolic Blood Pressure Non-Invasive [address] [facility] 05-12-2022 10:27-0400 Heart rate 84 /min DR BHAVIK TRIANA MD [address] [place] [address] 05-12-2022 10:27-0400 Respiratory rate 18 /min DR BHAVIK TRIANA MD [facility] 05-12-2022 10:27-0400 Systolic Blood Pressure Non-Invasive [address] [facility] 05-12-2022 10:26-0400 Body height 172.[address] BHAVIK TRIANA MD [address] [place] [address] 05-12-2022 10:26-0400 Body weight 167.[address] [facility]AVIK TRIANA MD [facility] 05-12-2022 10:26-0400 Body weight 56.06 kg/m2 DR BHAVIK TRIANA MD [facility] 05-12-2022 09:30-0400 Body weight 167.[address] BHAVIK TRIANA MD [facility] 03-17-2022 12:44-0500 Diastolic Blood Pressure Non-Invasive [address] [facility] 03-17-2022 12:44-0500 Heart rate 72 /min DR BHAVIK TRIANA MD [facility] 03-17-2022 12:44-0500 Systolic Blood Pressure Non-Invasive [address] [facility] 03-17-2022 12:00-0500 Diastolic Blood Pressure Non-Invasive [address] [facility] 03-17-2022 12:00-0500 Heart rate 78 /min DR BHAVIK TRIANA MD [facility] 03-17-2022 12:00-0500 Systolic Blood Pressure Non-Invasive [address] [facility] 03-17-2022 11:52-0500 Body height 172.[address] BHAVIK TRIANA MD [facility] 03-17-2022 11:52-0500 Body weight 166.[address] [facility]AVIK TRIANA MD [facility] 03-17-2022 11:52-0500 Body weight 55.76 kg/m2 DR BHAVIK TRIANA MD [address] [place] [address] 03-17-2022 11:49-0500 Body temperature 97.7 [degF] DR BHAVIK TRIANA MD [address] [place] [address] 03-17-2022 11:49-0500 Diastolic Blood Pressure Non-Invasive [address] [facility] 03-17-2022 11:49-0500 Heart rate 82 /min DR BHAVIK TRIANA MD [facility] 03-17-2022 11:49-0500 Respiratory rate 18 /min DR BHAVIK TRIANA MD [facility] 03-17-2022 11:49-0500 Systolic Blood Pressure Non-Invasive [address] [facility] 03-17-2022 10:26-0500 Body weight 166.[address] BHAVIK TRIANA MD [facility] 03-07-2022 11:29-0500 Body temperature 97.52 [degF] DR BHAVIK TRIANA MD [facility] 03-07-2022 11:29-0500 Diastolic Blood Pressure Non-Invasive [address] [facility] 03-07-2022 11:29-0500 Heart rate 72 /min DR BHAVIK TRIANA MD [facility] 03-07-2022 11:29-0500 Respiratory rate 18 /min DR BHAVIK TRIANA MD [facility] 03-07-2022 11:29-0500 Systolic Blood Pressure Non-Invasive [address] BHAVIK TRIANA MD [address] [place] [address] 03-07-2022 11:00-0500 Diastolic Blood Pressure Non-Invasive [address] BHAVIK TRIANA MD [address] 03-07-2022 11:00-0500 Heart rate 79 /min DR BHAVIK TRIANA MD [address] 03-07-2022 11:00-0500 Systolic Blood Pressure Non-Invasive [address] [facility] 03-07-2022 10:45-0500 Diastolic Blood Pressure Non-Invasive [address] [facility] 03-07-2022 10:45-0500 Heart rate 80 /min DR BHAVIK TRIANA MD [facility] 03-07-2022 10:45-0500 Respiratory rate 14 /min DR BHAVIK TRIANA MD [facility] 03-07-2022 10:45-0500 Systolic Blood Pressure Non-Invasive [address] [facility] 03-07-2022 08:32-0500 Body temperature 98.42 [degF] DR BHAVIK TRIANA MD [facility] 03-07-2022 08:32-0500 Heart rate 77 /min DR BHAVIK TRIANA MD [facility] 03-07-2022 08:11-0500 Body height 172.[address] BHAVIK TRIANA MD [facility] 03-07-2022 08:11-0500 Body weight 161.[address] BHAVIK TRIANA MD [facility] 03-07-2022 08:11-0500 Body weight 54.05 kg/m2 DR BHAVIK TRIANA MD [facility] 01-26-2022 11:06-0500 Body temperature 97.88 [degF] DONNA MOCK MD [facility] 01-26-2022 11:06-0500 Diastolic Blood Pressure Non-Invasive 110 1 DONNA MOCK MD [facility] 01-26-2022 11:06-0500 Heart rate 84 /min DONNA MOCK MD [facility] 01-26-2022 11:06-0500 Respiratory rate 22 /min DONNA MOCK MD [facility] 01-26-2022 11:06-0500 Systolic Blood Pressure Non-Invasive 167 1 DONNA MOCK MD [facility] 01-20-2022 12:22-0500 Diastolic Blood Pressure Non-Invasive [address] [facility] 01-20-2022 12:22-0500 Heart rate 71 /min DR BHAVIK TRIANA MD [facility] 01-20-2022 12:22-0500 Systolic Blood Pressure Non-Invasive [address] [facility] 01-20-2022 10:39-0500 Body height 172.[address] BHAVIK TRIANA MD [facility] 01-20-2022 10:39-0500 Body weight [address] BHAVIK TRIANA MD [facility] 01-20-2022 10:39-0500 Body weight 55.99 kg/m2 DR BHAVIK TRIANA MD [facility] 01-20-2022 10:35-0500 Body temperature 97.52 [degF] DR BHAVIK TRIANA MD [facility] 01-20-2022 10:35-0500 Diastolic Blood Pressure Non-Invasive [address] BHAVIK TRIANA MD [address] [place] [address] 01-20-2022 10:35-0500 Heart rate 77 /min DR BHAVIK TRIANA MD [address] [place] [address] 01-20-2022 10:35-0500 Systolic Blood Pressure Non-Invasive [address] BHAVIK TRIANA MD [address] [place] [address] 01-20-2022 08:57-0500 Body weight [address] BHAVIK TRIANA MD [address] [place] [address] 12-23-2021 12:54-0500 Diastolic Blood Pressure Non-Invasive [address] [facility] 12-23-2021 12:54-0500 Heart rate 76 /min DR BHAVIK TRIANA MD [facility] 12-23-2021 12:54-0500 Systolic Blood Pressure Non-Invasive [address] [facility] 12-23-2021 12:07-0500 Body height 172.[address] BHAVIK TRIANA MD [address] [place] [address] 12-23-2021 12:07-0500 Body weight 164.[address]AVIK TRIANA MD [facility] 12-23-2021 12:07-0500 Body weight 55.02 kg/m2 DR BHAVIK TRIANA MD [facility] 12-23-2021 11:59-0500 Body temperature 98.06 [degF] DR BHAVIK TRIANA MD [facility] 12-23-2021 11:59-0500 Diastolic Blood Pressure Non-Invasive [address] [facility] 12-23-2021 11:59-0500 Heart rate 76 /min DR BHAVIK TRIANA MD [address] [place] [address] 12-23-2021 11:59-0500 Systolic Blood Pressure Non-Invasive [address] BHAVIK TRIANA MD [address] 12-23-2021 09:58-0500 Body weight 164.[address] BHAVIK TRIANA MD [address] 09-22-2021 12:27-0400 Body temperature 97.7 [degF] DR BHAVIK TRIANA MD [address] [place] [address] 09-22-2021 12:27-0400 Diastolic blood pressure 97 mm[Hg] DR BHAVIK TRIANA MD [address] 09-22-2021 12:27-0400 Heart rate 74 /min DR BHAVIK TRIANA MD [address] 09-22-2021 12:27-0400 Respiratory rate 18 /min DR BHAVIK TRIANA MD [address] [place] [address] 09-22-2021 12:27-0400 Systolic blood pressure 155 mm[Hg] DR BHAVIK TRIANA MD [address] [place] [address] 09-22-2021 11:06-0400 Body temperature 98.42 [degF] DR BHAVIK TRIANA MD [address] [place] [address] 09-22-2021 11:06-0400 Diastolic blood pressure 68 mm[Hg] DR BHAVIK TRIANA MD [address] 09-22-2021 11:06-0400 Heart rate 66 /min DR BHAVIK TRIANA MD [address] [place] [address] 09-22-2021 11:06-0400 Respiratory rate 18 /min DR BHAVIK TRIANA MD [facility] 09-22-2021 11:06-0400 Systolic blood pressure 132 mm[Hg] DR BHAVIK TRIANA MD [facility] 08-03-2021 11:40-0400 Diastolic blood pressure 102 mm[Hg] DR MEI VALENTIN MD [facility] 08-03-2021 11:40-0400 Systolic blood pressure 156 mm[Hg] DR MEI VALENTIN MD [facility] 08-03-2021 11:23-0400 Body temperature 98.6 [degF] DR MEI VALENTIN MD [facility] 08-03-2021 11:23-0400 Diastolic blood pressure 115 mm[Hg] DR MEI VALENTIN MD [facility] 08-03-2021 11:23-0400 Heart rate 99 /min DR MEI VALENTIN MD [facility] 08-03-2021 11:23-0400 Respiratory rate 18 /min DR MEI VALENTIN MD [facility] 08-03-2021 11:23-0400 Systolic blood pressure 182 mm[Hg] DR MEI VALENTIN MD [facility] 06-30-2021 11:50-0400 diastolic 87 mm[Hg] DR BHAVIK TRIANA MD [facility] 06-30-2021 11:50-0400 Heart rate 74 /min DR BHAVIK TRIANA MD [facility] 06-30-2021 11:50-0400 Respiratory rate 18 /min DR BHAVIK TRIANA MD [facility] 06-30-2021 11:50-0400 systolic 151 mm[Hg] DR BHAVIK TRIANA MD [facility] 06-30-2021 10:23-0400 Body temperature 97.34 [degF] DR BHAVIK TRIANA MD [facility] 06-30-2021 10:23-0400 Diastolic Blood Pressure NBP [address] [facility] 06-30-2021 10:23-0400 Heart rate 68 /min DR BHAVIK TRIANA MD [facility] 06-30-2021 10:23-0400 Systolic Blood Pressure NBP [address] [facility] 06-02-2021 11:45-0400 diastolic 100 mm[Hg] DR BHAVIK TRIANA MD [facility] 06-02-2021 11:45-0400 Heart rate 75 /min DR BHAVIK TRIANA MD [facility] 06-02-2021 11:45-0400 Respiratory rate 18 /min DR BHAVIK TRIANA MD [facility] 06-02-2021 11:45-0400 systolic 149 mm[Hg] DR BHAVIK TRIANA MD [facility] 06-02-2021 10:58-0400 Body temperature 98.24 [degF] DR BHAVIK TRIANA MD [facility] 06-02-2021 10:58-0400 Diastolic blood pressure 65 mm[Hg] DR BHAVIK TRIANA MD [facility] 06-02-2021 10:58-0400 Heart rate 90 /min DR BHAVIK TRIANA MD [facility] 06-02-2021 10:58-0400 Systolic blood pressure 121 mm[Hg] DR BHAVIK TRIANA MD [facility] 06-02-2021 10:29-0400 Body temperature 97.52 [degF] DR BHAVIK TRIANA MD [facility] 06-02-2021 10:29-0400 Diastolic blood pressure 102 mm[Hg] DR BHAVIK TRIANA MD [facility] 06-02-2021 10:29-0400 Heart rate 77 /min DR BHAVIK TRIANA MD [facility] 06-02-2021 10:29-0400 Systolic blood pressure 141 mm[Hg] DR BHAVIK TRIANA MD [facility] 05-05-2021 13:04-0400 Diastolic blood pressure 72 mm[Hg] DR BHAVIK TRIANA MD [facility] 05-05-2021 13:04-0400 Heart rate 80 /min DR BHAVIK TRIANA MD [facility] 05-05-2021 13:04-0400 Respiratory rate 16 /min DR BHAVIK TRIANA MD [facility] 05-05-2021 13:04-0400 Systolic blood pressure 146 mm[Hg] DR BHAVIK TRIANA MD [facility] 05-05-2021 11:25-0400 Body temperature 97.52 [degF] DR BHAVIK TRIANA MD [facility] 05-05-2021 11:25-0400 diastolic 89 mm[Hg] DR BHAVIK TRIANA MD [facility] 05-05-2021 11:25-0400 Heart rate 83 /min DR BHAVIK TRIANA MD [facility] 05-05-2021 11:25-0400 Respiratory rate 18 /min DR BHAVIK TRIANA MD [facility] 05-05-2021 11:25-0400 systolic 157 mm[Hg] DR BHAVIK TRIANA MD [facility] 04-07-2021 12:47-0500 diastolic 92 mm[Hg] DR BHAVIK TRIANA MD [facility] 04-07-2021 12:47-0500 Heart rate 77 /min DR BHAVIK TRIANA MD [facility] 04-07-2021 12:47-0500 Respiratory rate 18 /min DR BHAVIK TRIANA MD [facility] 04-07-2021 12:47-0500 systolic 145 mm[Hg] DR BHAVIK TRIANA MD [facility] 04-07-2021 10:48-0500 Body temperature 97.52 [degF] DR BHAVIK TRIANA MD [facility] 04-07-2021 10:48-0500 diastolic 81 mm[Hg] DR BHAVIK TRIANA MD [facility] 04-07-2021 10:48-0500 Heart rate 72 /min DR BHAVIK TRIANA MD [facility] 04-07-2021 10:48-0500 Respiratory rate 20 /min DR BHAVIK TRIANA MD [facility] 04-07-2021 10:48-0500 systolic 141 mm[Hg] DR BHAVIK TRIANA MD [facility] 03-17-2021 13:02-0500 Diastolic blood pressure 87 mm[Hg] DR BHAVIK TRIANA MD [facility] 03-17-2021 13:02-0500 Heart rate 83 /min DR BHAVIK TRIANA MD [facility] 03-17-2021 13:02-0500 Respiratory rate 18 /min DR BHAVIK TRIANA MD [facility] 03-17-2021 13:02-0500 Systolic blood pressure 160 mm[Hg] DR BHAVIK TRIANA MD [facility] 03-17-2021 11:26-0500 Body temperature 97.7 [degF] DR BHAVIK TRIANA MD [facility] 03-17-2021 11:26-0500 diastolic 90 mm[Hg] DR BHAVIK TRIANA MD [facility] 03-17-2021 11:26-0500 Heart rate 109 /min DR BHAVIK TRIANA MD [facility] 03-17-2021 11:26-0500 Respiratory rate 20 /min DR BHAVIK TRIANA MD [facility] 03-17-2021 11:26-0500 systolic 136 mm[Hg] DR BHAVIK TRIANA MD [facility] 01-27-2021 14:24-0500 Diastolic blood pressure 90 mm[Hg] DR BHAVIK TRIANA MD [facility] 01-27-2021 14:24-0500 Heart rate 91 /min DR BHAVIK TRIANA MD [facility] 01-27-2021 14:24-0500 Systolic blood pressure 152 mm[Hg] DR BHAVIK TRIANA MD [facility] 01-27-2021 13:42-0500 diastolic 70 mm[Hg] DR BHAVIK TRIANA MD [facility] 01-27-2021 13:42-0500 Heart rate 86 /min DR BHAVIK TRIANA MD [facility] 01-27-2021 13:42-0500 systolic 150 mm[Hg] DR BHAVIK TRIANA MD [facility] 01-27-2021 12:37-0500 Body temperature 97.52 [degF] DR BHAVIK TRIANA MD [facility] 01-27-2021 12:37-0500 diastolic 94 mm[Hg] DR BHAVIK TRIANA MD [facility] 01-27-2021 12:37-0500 Respiratory rate 20 /min DR BHAVIK TRIANA MD [facility] 01-27-2021 12:37-0500 systolic 182 mm[Hg] DR BHAVIK TRIANA MD [facility] 12-16-2020 13:55-0400 diastolic 94 mm[Hg] DR BHAVIK TRIANA MD [facility] 12-16-2020 13:55-0400 Heart rate 90 /min DR BHAVIK TRIANA MD [facility] 12-16-2020 13:55-0400 Respiratory rate 18 /min DR BHAVIK TRIANA MD [facility] 12-16-2020 13:55-0400 systolic 152 mm[Hg] DR BHAVIK TRIANA MD [facility] 12-16-2020 11:28-0400 Body temperature 97.88 [degF] DR BHAVIK TRIANA MD [facility] 12-16-2020 11:28-0400 diastolic 82 mm[Hg] DR BHAVIK TRIANA MD [facility] 12-16-2020 11:28-0400 Heart rate 86 /min DR BHAVIK TRIANA MD [facility] 12-16-2020 11:28-0400 Respiratory rate 18 /min DR BHAVIK TRIANA MD [facility] 12-16-2020 11:28-0400 systolic 139 mm[Hg] DR BHAVIK TRIANA MD [facility] 11-25-2020 12:50-0400 Diastolic blood pressure 70 mm[Hg] DR BHAVIK TRIANA MD [facility] 11-25-2020 12:50-0400 Mean blood pressure 92 mm[Hg] DR BHAVIK TRIANA MD [facility] 11-25-2020 12:50-0400 Systolic blood pressure 136 mm[Hg] DR BHAVIK TRIANA MD [facility] 11-25-2020 10:38-0400 Body weight 169.[address] BHAVIK TRIANA MD [facility] 11-25-2020 10:15-0400 Body temperature 97.7 [degF] DR BHAVIK TRIANA MD [facility] 11-25-2020 10:15-0400 diastolic 75 mm[Hg] DR BHAVIK TRIANA MD [facility] 11-25-2020 10:15-0400 Heart rate 80 /min DR BHAVIK TRIANA MD [facility] 11-25-2020 10:15-0400 Respiratory rate 18 /min DR BHAVIK TRIANA MD [facility] 11-25-2020 10:15-0400 systolic 131 mm[Hg] DR BHAVIK TRIANA MD [facility] Encounters Encounter Date Encounter Type Care Provider Facility Start: 12-16-[address] BHAVIK TRIANA MD Facilit y:A Start: 11-27-2024 End: 11-27-[address] [facility] Start: 11-25-2024 End: 11-26-2024 Emergency department patient visit PR[facility] Start: 11-25-2024 End: 11-25-2024 Emergency department patient visit DONNA MOCK MD [facility] Start: 11-19-[address] BHAVIK TRIANA MD Facilit y:[facility] Start: 11-19-2024 End: 11-19-[address] BHAVIK TRIANA MD Facility:A Start: 11-19-2024 End: 11-19-[address] BHAVIK TRIANA MD [facility] Start: 10-22-[address] BHAVIK TRIANA MD Facilit y:[facility] Start: 10-22-2024 End: 10-22-2024 ambulatory EZEQUIEL LEAL ELECT[employer]ICIAN OUTSIDE-APPARATUS REPAIR MECHANIC Facility:A Start: 10-22-2024 End: 10-22-2024 Patient encounter procedure EZEQUIEL LEAL ELECTRICIAN OUTSIDE-APPARATUS REPAIR MECHANIC [facility] Start: 10-16-2024 End: 10-20-[address] PROSPER MANJARREZ DO Facility:[facility] Start: 10-16-2024 End: 10-20-[address] PROSPER MANJARREZ DO [facility] Start: 10-08-2024 End: 10-08-[address] PROSPER MANJARREZ DO Facility:[facility] Start: 10-08-2024 End: 10-08-2024 Patient encounter procedure EZEQUIEL ELVIS ELECTRICIAN OUTSIDE-APPARATUS REPAIR MECHANIC [facility] Start: 09-17-2024 End: 09-17-2024 ambulatory DR BHAVIK TRIANA MD Facility:A Start: 09-17-2024 End: 09-17-[address] BHAVIK TRIANA MD [facility] Start: 08-07-2024 End: 08-07-[address] BHVAIK TRIANA MD Facility:A Start: 08-07-2024 End: 08-07-[address] BHAVIK TRIANA MD [facility] Start: 08-06-2024 End: 08-06-[address] BHAVIK TRIANA MD Facility:[facility] Start: 08-06-2024 End: 08-06-[address] BHAVIK TRIANA MD [facility] Start: 07-30-2024 End: 08-01-2024 ambulatory PAM ROME MD Facility:A Start: 07-30-2024 End: 08-01-2024 Observation AISHWARYA HAMLIN MD [facility] Start: 07-26-2024 End: 07-27-2024 Emergency department patient visit DR LISBET J RIDER DO [facility] Start: 07-26-2024 End: 07-26-2024 Admission to establishment AISHWARYA HAMLIN MD [facility] Start: 07-26-2024 End: 07-26-2024 ambulatory AISHWARYA HAMLIN MD Facility:A Start: 07-22-2024 End: 07-26-2024 ambulatory HERMAN ORDAZ ELECTRICIAN OUTSIDE-APPARATUS REPAIR MECHANIC Facility:[facility] Start: 07-22-2024 End: 07-26-2024 Outreach Lab HERMAN ORDAZ ELECTRICIAN OUTSIDE-APPARATUS REPAIR MECHANIC [facility] Start: 07-18-2024 ambulatory LIAN FUNG Facility: [facility] Start: 07-03-2024 End: 07-03-[address] BHAVIK TRIANA MD Facility:A Start: 07-03-2024 End: 07-03-[address] BHAVIK TRIANA MD [facility] Start: 06-26-2024 End: 06-26-[address] BHAVIK TRIANA MD Facility:[facility] Start: 06-26-2024 End: 06-26-[address] BHAVIK TRIANA MD [facility] Start: 06-05-2024 End: 06-05-[address] PROSPER MANJARREZ DO Facility:A Start: 06-05-2024 End: 06-05-2024 Patient encounter procedure EZEQUIEL LEAL ELECTRICIAN OUTSIDE-APPARATUS REPAIR MECHANIC [facility] Start: 05-16-2024 ambulatory EZEQUIEL LEAL ELECTRICIAN OUTSIDE-APPARATUS REPAIR MECHANIC Facility:[facility] Start: 04-30-2024 End: 04-30-[address] PROSPER MANJARREZ DO Facility:A Start: 04-30-2024 End: 04-30-[address] BHAVIK TRIANA MD [facility] Start: 04-02-2024 End: 04-02-2024 ambulatory EZEQUIEL LEAL ELECTRICIAN OUTSIDE-APPARATUS REPAIR MECHANIC Facility:A Start: 04-02-2024 End: 04-02-2024 Patient encounter procedure EZEQUIEL LEAL ELECTRICIAN OUTSIDE-APPARATUS REPAIR MECHANIC [facility] Start: 03-27-2024 End: 03-31-2024 ambulatory EZEQUIEL LEAL ELECTRICIAN OUTSIDE-APPARATUS REPAIR MECHANIC Facility:[facility] Start: 03-27-2024 End: 03-31-2024 Outreach Lab EZEQUIEL LEAL ELECTRICIAN OUTSIDE-APPARATUS REPAIR MECHANIC [facility] Start: 03-12-2024 ambulatory [facility] Facility:[facility] Start: 03-04-2024 End: 03-04-[address] BHAVIK TRIANA MD Facility:A Start: 03-04-2024 End: 03-04-[address] BHAVIK TRIANA MD [facility] Start: 03-01-2024 End: 03-01-[address] PROSPER MANJARREZ DO Facility:[facility] Start: 02-29-[address] PROSPER BARCLAY DO Facility:[facility] Start: 02-05-2024 End: 02-05-2024 ambulatory EZEQUIEL ELAL ELECTRICIAN OUTSIDE-APPARATUS REPAIR MECHANIC Facility:A Start: 02-05-2024 End: 02-05-2024 Patient encounter procedure EZEQUIEL LEAL ELECTRICIAN OUTSIDE-APPARATUS REPAIR MECHANIC [facility] Start: 01-31-2024 End: 02-04-[address] PROSPER MANJARREZ DO Facility:[facility] Start: 01-31-2024 End: 02-04-[address] PROSPER MANJARREZ DO [facility] Start: 01-25-2024 End: 01-25-2024 Emergency department patient visit NORMA GARCIA DO [facility] Start: 01-19-2024 End: 01-19-2024 ambulatory EZEQUIELCHASE LEAL ELECTRICIAN OUTSIDE-APPARATUS REPAIR MECHANIC Facility:[facility] Start: 01-19-2024 End: 01-19-2024 Patient encounter procedure EZEQUIEL LEAL ELECTRICIAN OUTSIDE-APPARATUS REPAIR MECHANIC [facility] Start: 12-21-2023 End: 12-21-2023 ambulatory EZEQUIEL LEAL ELECTRICIAN OUTSIDE-APPARATUS REPAIR MECHANIC Facility: Start: 12-21-2023 End: 12-21-2023 Patient encounter procedure EZEQUIEL LEAL ELECTRICIAN OUTSIDE-APPARATUS REPAIR MECHANIC [facility] Start: 11-30-2023 End: 11-30-[address] PROSPER MANJARREZ DO [facility] Start: 11-30-2023 End: 11-30-2023 Well adult monitoring check done DR PROSPER MANJARREZ DO [facility] Start: 11-23-2023 End: 11-23-2023 Chart abstracting Yasir Bradford APRN.WORKS MANAGER Work Phone: Pulmonary Medicine Comment on above: Multidisciplinary Di scussion (CTEPH) Other secondary pulm onary hypertension (HCC) (Primary Dx); CTEPH (chronic thromboembolic pulmonary hypertension) (HCC); SOB (shortness of breath); History of pulmonary embolism Start: 11-17-2023 End: 11-21-2023 Chart abstracting Yasir Bradford APRN.WORKS MANAGER Work Phone: Pulmonary Medicine Comment on above: Consult (External re ferral for CTEPH ) Start: 11-16-2023 End: 11-22-2023 Telephone encounter Shyanne Dockery Pulmonary [facility] Comment on above: New CTEPH Referral Start: 11-16-2023 End: 11-16-[address] BHAVIK TRIANA MD [facility] Start: 11-03-2023 End: 11-03-2023 Patient encounter procedure NOAH SEPULVEDA MD [facility] Start: 10-31-2023 End: 10-31-2023 SAME DAY STAY NOAH SEPULVEDA MD [facility] Start: 10-26-2023 End: 10-26-2023 Emergency department patient visit NORMA GARCIA DO [facility] Start: 10-19-2023 End: 10-19-[address] BHAVIK TRIANA MD [facility] Start: 10-14-[address] PROSPER BARCLAY DO Facility:A Start: 10-12-2023 End: 10-12-[address] PROSPER MANJARREZ DO Facility:[facility] Start: 10-12-2023 End: 10-12-[address] BHAVIK TRIANA MD [facility] Start: 09-20-[address] PROSPER BARCLAY DO Facility:A Start: 09-18-2023 End: 09-25-2023 Evaluation and management of inpatient REGINA SANCHEZ MD [facility] Start: 09-12-2023 End: 09-18-2023 Evaluation and management of inpatient MURALI MAGANA ELECTRICIAN OUTSIDE-APPARATUS REPAIR MECHANIC [facility] Start: 08-31-2023 End: 08-31-2023 Emergency department patient visit MARIO COCHRAN MD [facility] Start: 08-24-2023 End: 08-24-[address] PROSPER NOWAKR DO Facility:A Start: 08-24-2023 End: 08-24-[address] BHAVIK TRIANA MD [facility] Start: 08-09-2023 End: 08-09-2023 ambulatory LIAN FUNG MD Facility:A Start: 07-27-2023 End: 07-27-[address] PROSPER MANJARREZ DO Facility:A Start: 07-27-2023 End: 07-27-[address] BHAVIK TRIANA MD [facility] Start: 07-20-2023 End: 07-20-[address] PROSPER NOWAKR DO Facility:[facility] Start: 07-20-2023 End: 07-20-[address] BHAVIK TRIANA MD [facility] Start: 03-13-[address] PROSPER Valenzuela BUL LER DO Facility:A Start: 02-16-[address] PROSPER Valenzuela BUL LER DO Facility:[facility] Start: 02-16-2023 End: 02-16-[address] PROSPER Valenzuela LOKI DO Facility:A Start: 02-16-2023 End: 02-16-[address] BHAVIK TRIANA MD [facility] Start: 01-19-2023 End: 01-19-[address] PROSPER MANJARREZ DO Facility:A Start: 01-19-2023 End: 01-19-[address] BHAVIK TRIANA MD [facility] Start: 12-16-[address] PROSPER BARCLAY DO Facility:A Start: 12-01-2022 End: 12-01-2022 ambulatory LIAN FUNG MD Facility:A Start: 12-01-2022 End: 12-01-2022 Patient encounter procedure LIAN FUNG MD [facility] Start: 11-29-2022 End: 11-30-2022 ambulatory PROSPER MANJARREZ [facility] Start: 11-29-2022 End: 11-30-2022 ambulatory DORON Stokes [facility] Start: 11-24-2022 End: 11-24-[address] PROSPER MANJARREZ DO Facility:A Start: 11-24-2022 End: 11-24-[address] BHAVIK TRIANA MD [facility] Start: 11-23-2022 End: 11-23-2022 ambulatory [facility] Start: 11-23-2022 End: 11-23-2022 Subsequent hospital visit by physician Andrew Green[facility] Comment on above: Typical atrial flutt er (CMS/HCC); Right atrial mass; SOB (shortness of breath) on exertion Typical atrial flutt er (CMS/HCC); Right atrial mass; SOB (shortness of breath) on exertion; Atypical atrial flutter (CMS/HCC); Pulmonary thrombosis (CMS/HCC) Start: 10-27-2022 End: 10-27-[address] PROSPER MANJARREZ DO Facility:A Start: 10-27-2022 End: 10-27-[address] BHAVIK TRIANA MD [facility] Start: 10-27-2022 End: 10-03-[address] PROSPER MANJARREZ DO Facility:[facility] Start: 10-27-2022 End: 10-03-2023 Lab-Standing Order DR RPOSPER MANJARREZ DO [facility] Start: 10-24-2022 End: 10-24-2022 ambulatory LIAN FUNG MD Facility:A Start: 10-24-2022 End: 10-24-2022 Patient encounter procedure LIAN FUNG MD [facility] Start: 10-11-2022 NPV, Provider: Doron Gonzalez, Status: Pen, Time: 3:00 PM Prosper A Loki Work Phone: [facility] [address] Work Phone: Start: 10-10-2022 Patient encounter procedure Br ett A Loki Work Phone: [facility] [address] Work Phone: Start: 10-10-2022 Postop follow up vis it related to original px Prosper A Loki Work Phone: NN-Recplsvkho[facility] [address] [place] Work Phone: Start: 10-10-2022 TAYLA, Provider : Georgia Brady, Status: Pen, Time: 2:45 PM Prosper A Loki Work Phone: ST-Jjtdacywgu-Bvendk [facility] [place] Work Phone: Start: 10-10-[address] Prosper Manjarrez Facility:[facility] Start: 10-10-[address] Prosper flores Loki Facility:[facility] Start: 10-03-2022 AUDIT Prosper Valenzuela Loki Work Phone: GL-Qtjqjqqduy-Mvlccy w[address] [place] Work Phone: Start: 09-29-2022 End: 09-29-[address] BHAVIK TRIANA MD [facility] Start: 09-22-2022 ambulatory Han Stover Facility[facility] Start: 09-16-2022 AUDIT Prosper Manjarrez Work Phone: LM-Eagrpgkcsv-Whvug Work Phone: Start: 09-05-[address] Prosper Manjarrez Facility:[id number] Start: 08-10-2022 End: 08-29-2022 Evaluation and management of inpatient Georgia Abu-Pranav [facility] [id number] Rm [id number] 01 Start: 08-01-2022 End: 08-09-2022 Evaluation and management of inpatient JOI SORIANO MD [facility] Start: 08-01-2022 End: 08-01-2022 Emergency department patient visit JOHNSON CUNNINGHAM DO [facility] Start: 06-09-2022 End: 06-09-[address] BHAVIK TRIANA MD [facility] Start: 05-12-2022 End: 05-12-[address] BHAVIK TRIANA MD [facility] Start: 03-17-2022 End: 03-17-[address] BHAVIK TRIANA MD [facility] Start: 03-08-2022 End: 03-08-[address] BHAVIK TRIANA MD [facility] Start: 03-07-2022 End: 03-07-[address] BHAVIK TRIANA MD [facility] Start: 01-26-2022 End: 01-26-2022 Emergency department patient visit DONNA MOCK MD [facility] Start: 01-20-2022 End: 01-20-[address] BHAVIK TRIANA MD [facility] Start: 12-23-2021 End: 12-23-[address] BHAVIK TRIANA MD [facility] Start: 09-22-2021 End: 09-22-[address] BHAVIK TRIANA MD [facility] Start: 09-15-2021 End: 09-15-[address] BHAVIK TRIANA MD [facility] Start: 08-03-2021 End: 08-03-2021 Emergency department patient visit DR MEI VALENTIN MD [facility] Start: 06-30-2021 End: 06-30-[address] BHAVIK TRIANA MD [facility] Start: 06-02-2021 End: 06-02-[address] BHAVIK TRIANA MD [facility] Start: 05-05-2021 End: 05-05-[address] BHAVIK TRIANA MD [facility] Start: 04-28-2021 End: 04-28-[address] BHAVIK TRIANA MD [facility] Start: 04-07-2021 End: 04-07-[address] BHAVIK TRIANA MD [facility] Start: 03-17-2021 End: 03-17-[address] BHAVIK TRIANA MD [facility] Start: 03-09-2021 End: 03-09-[address] BHAVIK TRIANA MD [facility] Start: 02-04-2021 End: 02-04-[address] PAMELA MEI MD [facility] Start: 01-27-2021 End: 01-27-[address] BHAVIK TRIANA MD [facility] Start: 01-06-2021 End: 01-06-[address] BHAVIK TRIANA MD [facility] Start: 12-30-2020 End: 12-30-[address] BHAVIK TRIANA MD [facility] Start: 12-16-2020 End: 12-16-[address] BHAVIK TRIANA MD [facility] Start: 11-25-2020 End: 11-25-[address] BHAVIK TRIANA MD [facility] Procedures Date Procedure Procedure Detail Performing Clinician [...] on above: Performed By: #### T +S ####[id number] [place] [address] Start: 08-20-[address] Sara Manjarrez Comment on above: Performed By: #### T +S ####[id number] [place] [address] Start: 08-19-[address] Iris Manjarrez Start: 08-19-2022 Lipid 1996 panel - S bob or Plasma Par Stress Start: 08-18-2022 End: 08-18-2022 Arterial Full Panel -Stat Chuckie Sofiya Start: 08-18-2022 End: 08-18-2022 Gas panel - Arterial blood Chuckie Sofiya Start: 08-18-2022 Incision of atrium of heart HERMAN ORDAZ ELECTRICIAN OUTSIDE-APPARATUS REPAIR MECHANIC Comment on above: with removal of of r ight atrial mass Start: 08-18-2022 Removal of pulmonary embolus HERMAN ORDAZ ELECTRICIAN OUTSIDE-APPARATUS REPAIR MECHANIC Start: 08-17-[address] Sara Manjarrez Comment on above: Performed By: #### T +S ####[id number] [place] [address] Start: 08-17-[address] Jose Luis TRIANA MD Start: 08-16-[address] Sara Manjarrez Comment on above: Performed By: #### T +S ####[id number] [id number] Start: 08-16-2022 Thyrotropin [Units/v olume] in Serum or Plasma Par Stress Start: 08-10-[address] Iris Manjarrez Start: 08-10-[address] 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 DR BHAVIK TRIANA MD Start: 02-14-1988 Tonsillectomy HERMAN GARCIA ELECTRICIAN OUTSIDE-APPARATUS REPAIR MECHANIC Boost radiation therapy DR Jose Luis TRIANA [...] 2) Zoste r Vaccines (1 of 2) [facility] Start: 08-20-2027 Lipid panel Lipid Panel [facility] Start: 11-24-2023 Echocardiography Echocardiogram [facility] Start: 11-23-2023 End: 02-22-2024 BETA 2 GLYCOPROTEIN, IGG BETA 2 GLYCOPROTEIN, IGG Lab Routine 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) SOB (shortness of breath) Expected: 11/23/2023, Expires: 02/22/2024 [facility] Comment on above: Expected: 11/23/2023 , Expires: 02/22/2024 Start: 11-23-2023 End: 02-22-2024 BETA 2 GLYCOPROTEIN, IGM BETA 2 GLYCOPROTEIN, IGM Lab Routine 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) SOB (shortness of breath) Expected: 11/23/2023, Expires: 02/22/2024 [facility] Comment on above: Expected: 11/23/2023 , Expires: 02/22/2024 Start: 11-23-2023 End: 02-22-2024 Cardiolipin IgA Ab [Units/volume] in Serum by Immunoassay CARDIOLIPIN IGA ABS Lab Routine 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) SOB (shortness of breath) Expected: 11/23/2023, Expires: 02/22/2024 [facility] Comment on above: Expected: 11/23/2023 , Expires: 02/22/2024 Start: 11-23-2023 End: 02-22-2024 CARDIOLIPIN IGG ABS CARDIOLIPIN IGG ABS Lab Routine 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) SOB (shortness of breath) Expected: 11/23/2023, Expires: 02/22/2024 [facility] Comment on above: Expected: 11/23/2023 , Expires: 02/22/2024 Start: 11-23-2023 End: 02-22-2024 CARDIOLIPIN IGM ABS CARDIOLIPIN IGM ABS Lab Routine 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) SOB (shortness of breath) Expected: 11/23/2023, Expires: 02/22/2024 [facility] Comment on above: Expected: 11/23/2023 , Expires: 02/22/2024 Start: 11-23-2023 End: 02-22-2024 CBC W Auto Differential panel - Blood COMPLETE BLOOD COUNT AND DIFFERENTIAL Lab Routine 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) SOB (shortness of breath) Expected: 11/23/2023, Expires: 02/22/2024 [facility] Work Phone: Comment on above: Expected: 11/23/2023 , Expires: 02/22/2024 Start: 11-23-2023 End: 02-22-2024 Comprehensive metabolic 2000 panel - Serum or Plasma COMPREHENSIVE METABOLIC PANEL Lab Routine 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) SOB (shortness of breath) Expected: 11/23/2023, Expires: 02/22/2024 [facility] Comment on above: Expected: 11/23/2023 , Expires: 02/22/2024 Start: 11-23-2023 End: 02-22-2024 Natriuretic peptide.B prohormone N-Terminal [Mass/volume] in Serum or Plasma NT PRO BNP Lab Routine 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) SOB (shortness of breath) Expected: 11/23/2023, Expires: 02/22/2024 [facility] Comment on above: Expected: 11/23/2023 , Expires: 02/22/2024 Start: 08-30-2023 Creatinine measurement Creatinine Le claire [facility] Start: 08-30-2023 Potassium measurement Potassium Teddy stokes [facility] Start: 08-25-2023 Diabetes mellitus screening Diabetes Screening [facility] Start: 08-17-2023 Thyroid stimulating hormone measurement TSH Level [facility] Start: 08-11-2023 Hemoglobin A1c measurement Marcia betes: Hemoglobin A1C [facility] Start: 05-30-2023 End: 05-30-2023 Patient encounter procedure 05/30/2023 2:00 PM EDT Office Visit [facility] [place] [address] [place] [address] [place] [address] [address] [place], [place] [id number] [facility] Start: 11-29-2022 NPV, Provider: Doron Gonzalez, Status: Pen, Time: 3:00 PM NPV, Provider: Doron Gonzalez, Status: Pen, Time: 3:00 PM ZK-Yphlhanrkj-AWV [facility] [address] [place] Work Phone: Start: 11-03-2022 EVENT KYUNG, Provider : HEATH HHVI MONITORS,[id number], Status: Pen, Time: 11:00 AM EVENT KYUNG, Provider: HEATH HHVI MONITORS,[id number], Status: Pen, Time: 11:00 AM SN-Qpgdqxciha-Gcyjb Work Phone: Start: 11-03-2022 ECHO, Provider: CANDIDA ACUNAI,[id number], Status: Pen, Time: 10:00 AM ECHO, Provider: HEATH ACUNAI,[id number], Status: Pen, Time: 10:00 AM TY-Iqwgnftcon-Vyrmb Work Phone: Start: 10-14-2022 Influenza vaccination Influenza Vacc ine (#1) [facility] Start: 10-11-2022 NPV, Provider: Doron Gonzalez, Status: Pen, Time: 3:00 PM NPV, Provider: Doron Gonzalez, Status: Pen, Time: 3:00 PM GP-Cxzigsuaot-Jrxav Work Phone: Start: 10-11-2022 Patient encounter procedure [facility] Start: 10-07-2022 Patient encounter procedure [facility] Start: 10-07-2022 POV, Provider: Georgia Brady, Status: Pen, Time: 1:30 PM POV, Provider: Georgia Brady, Status: Pen, Time: 1:30 PM EZ-Yorniaxqmx-Wvfpn Work Phone: Start: 09-08-2022 Patient encounter procedure [facility] Start: 09-05-2022 Patient encounter procedure [facility] [place] [address] Start: 08-29-2022 End: 08-30-2023 Heparin Flush 100 unit/ mL Injectable Open Dosing ; via [place] - MediportVolume = 5 mL IntraVenous Flush OnceClinician Notes: Upon final de-accessing of implanted port. Start: 29-Aug-2022 End: 29-Aug-2023 Ordered: 29-Aug-2022 Sally Johnson Intent Comments: Upon final de-accessing of implanted port. [facility] Comment on above: Upon final de-access ing of implanted port. Start: 08-10-2022 Pulmonary embolism Pulmonary e mbolism Date: 10-Aug-2022 [facility] Start: 08-10-2022 Swelling of both upp er extremities Swelling of both upper extremities Date: 10-Aug-2022 [facility] Start: 06-10-2021 COVID-19 Vaccine (4 - Moderna series) COVID-19 Vaccine (4 - Moderna series) [facility] Start: 05-17-2001 DTaP/Tdap/Td Vaccine s (1 - Tdap) DTaP/Tdap/Td Vaccines (1 - Tdap) [facility] Start: 05-17-1998 Hepatitis A Vaccines (1 of 2 - Risk 2-dose series) Hepatitis A Vaccines (1 of 2 - Risk 2-dose series) [facility] Start: 05-17-1997 Hepatitis C screening Hepatitis C [facility] Start: 05-17-1985 Pneumococcal Vaccine : Pediatrics (0 to 5 Years) and At-Risk Patients (6 to 64 Years) (1 - PCV) Pneumococcal Vaccine: Pediatrics (0 to 5 Years) and At-Risk Patients (6 to 64 Years) (1 - PCV) [facility] Start: 05-17-1980 MMR Vaccines (1 of 1 - Standard series) MMR Vaccines (1 of 1 - Standard series) [facility] Start: 1979 Hepatitis B Vaccines (1 of 3 - 3-dose series) Hepatitis B Vaccines (1 of 3 - 3-dose series) [facility] Start: 1979 HIV screening HIV Screening [facility] Start: 1979 Yearly Adult Physical Yearly Adult P [facility] End: 12-22-2024 CTA Pulmonary arteries for pulmonary embolus W contrast IV CT CHEST W IVCON PE Radiology STAT 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) SOB (shortness of breath) 1 Occurrences starting 11/23/2023 until 12/22/2024 [facility] Comment on above: 1 Occurrences starti ng 11/23/2023 until 12/22/2024 End: 11-22-2024 ECHO WITH AGITATED SALINE CONTRAST ECHO WITH AGITATED SALINE CONTRAST Cardiology Routine 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) SOB (shortness of breath) 1 Occurrences starting 11/23/2023 until 11/22/2024 [facility] Comment on above: 1 Occurrences starti ng 11/23/2023 until 11/22/2024 End: 11-23-2022 Holter monitor study [facility] Service Area Work Phone: Comment on above: Once for 1 Occurrenc es starting 11/23/2022 until 11/23/2022 LUNG DIFFUSION CAPAC ITY (DLCO) LUNG DIFFUSION CAPACITY (DLCO) PFT Routine 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) SOB (shortness of breath) Ordered: 11/23/2023 [facility] [facility] Comment on above: Ordered: 11/23/2023 LUNG VOLUMES LUNG VOLUMES PFT Routine 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) SOB (shortness of breath) Ordered: 11/23/2023 [facility] Comment on above: Ordered: 11/23/2023 End: 12-22-2024 NM Lung Ventilation and Perfusion NM LUNG VENT / PERF VQ Radiology Routine 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) SOB (shortness of breath) 1 Occurrences starting 11/23/2023 until 12/22/2024 [facility] Comment on above: 1 Occurrences starti ng 11/23/2023 until 12/22/2024 SIX MINUTE WALK SIX MINUTE WALK PFT Routine 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) SOB (shortness of breath) Ordered: 11/23/2023 [facility] Comment on above: Ordered: 11/23/2023 SPIROMETRY WITH DILA TOR IF OBSTRUCTED SPIROMETRY WITH DILATOR IF OBSTRUCTED PFT Routine 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) SOB (shortness of breath) Ordered: 11/23/2023 [facility] Comment on above: Ordered: 11/23/2023 End: 11-22-2024 US Lower extremity veins - bilateral US LEG VEIN DVT [facility] Vascular Lab Routine 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 10-15-2020 SARS-CoV-2 (COVID-19 ) mRNA-[address] BHAVIK TRIANA MD [facility] Comment on above: Result Comment: 202007: TPV40 09-17-2020 SARS-CoV-2 (COVID-19 ) mRNA-[address] BHAVIK TRIANA MD [facility] Comment on above: Result Comment: 2020: TPV40 Payers Date Payer Category Payer Self-pay 2023 Medicaid [id number] 2023 Unknown [id number] 2021 Unknown 2021 Unknown [id number] 1979 Unknown [id number] 2.16.8 40.1.098366.3.579.2.1046 1979 Unknown [id number] 2.16. 840.1.212042.3.579.2.356 1979 Unknown [id number] 2.16. 840.1.232032.3.579.2.356 1979 Unknown [id number] 2.16. 840.1.494597.3.579.2.356 1979 Unknown [id number] 2.16. 840.1.914916.3.579.2.356 1979 Unknown [id number] 2.16.84 0.1.079495.3.579.2.1245 1979 Unknown [id number] 2.16.84 0.1.499348.3.579.2.1245 1979 Unknown [id number] 2.16.8 40.1.674982.3.579.2.627 1979 Unknown [id number] 2.16.8 40.1.754804.3.579.2.627 1979 Unknown [id number] 2.16.8 40.1.146919.3.579.2.627 1979 Unknown [id number] 2.16.8 40.1.862077.3.579.2.627 1979 Unknown [id number] 2.16.8 40.1.167485.3.579.2. 1979 Unknown [id number] 2.16.8 40.1.467920.3.579.2. 1979 Unknown [id number] 2.16.8 40.1.692930.3.579.2. 1979 Unknown [id number] 2.16.8 40.1.984550.3.579.2. 1979 Unknown [id number] 2.16.8 40.1.385698.3.579.2. 1979 Unknown [id number] 2.16.8 40.1.613086.3.579.2. 1979 Unknown [id number] .16.8 40.1.435502.3.579.2. 1979 Unknown [id number] 2.16.8 40.1.601151.3.579.2. 1979 Unknown [id number] 2.16.8 40.1.346374.3.579.2. 1979 Unknown [id number] .16.8 40.1.335547.3.579.2. 1979 Unknown [id number] 2.16.8 40.1.988130.3.579.2. 1979 Unknown [id number] .16.8 40.1.879555.3.579.2. 1979 Unknown [id number] .16.8 40.1.974827.3.579.2. 1979 Unknown [id number] 2.16.8 40.1.141391.3.579.2. 1979 Unknown [id number] .16.8 40.1.838366.3.579.2. 1979 Unknown [id number] 2.16.8 40.1.336472.3.579.2. 1979 Unknown [id number] 2.16. 840.1.841696.3.579.2. 1979 Unknown [id number] 2.16. 840.1.137400.3.579.2. 1979 Unknown [id number] 2.16. 840.1.838090.3.579.2. 1979 Unknown [id number] 2.16. 840.1.812029.3.579.2. 1979 Unknown [id number] 2.16. 840.1.471704.3.579.2 1979 Unknown [id number] 2.16. 840.1.756467.3.579.2 1979 Unknown [id number] 2.16. 840.1.516302.3.579.2 1979 Unknown [id number] 2.16. 840.1.201085.3.579.2 1979 Unknown [id number] 2.16. 840.1.196647.3.579.2 1979 Unknown [id number] 2.16.8 40.1.560598.3.579.2 1979 Unknown [id number] 2.16.8 40.1.066753.3.579.2 1979 Unknown [id number] 2.16.8 40.1.212850.3.579.2 1979 Unknown [id number] 2.16.8 40.1.979897.3.579.2 1979 Unknown [id number] .16.8 40.1.440469.3.579.2 1979 Unknown [id number] 2.16.8 40.1.659774.3.579.2 1979 Unknown [id number] 2.16.8 40.1.936412.3.579.2.7 1979 Unknown [id number] 2.16.8 40.1.246027.3.579.2. 1979 Unknown [id number] 2.16. 840.1.072468.3.579.2. 1979 Unknown [id number] 2.16. 840.1.442219.3.579.2. 1979 Unknown [id number] 2.16. 840.1.708237.3.579.2. 1979 Unknown [id number] 2.16. 840.1.533416.3.579.2. 1979 Unknown [id number] 2.16. 840.1.075985.3.579.2. 1979 Unknown [id number] 2.16. 840.1.044397.3.579.2. 1979 Unknown [id number] 2.16. 840.1.740390.3.579.2. 1979 Unknown [id number] 2.16. 840.1.427920.3.579.2. 1979 Unknown [id number] 2.16. 840.1.767656.3.579.2. 1979 Unknown [id number] 2.16.8 40.1.102891.3.579.2. 1979 Unknown [id number] 2.16.8 40.1.426205.3.579.2. 1979 Unknown [id number] 2.16.8 40.1.478397.3.579.2. 1979 Unknown [id number] 2.16.8 40.1.545169.3.579.2. 1979 Unknown [id number] 2.16.8 40.1.942451.3.579.2. 1979 Unknown [id number] 2.16.8 40.1.946326.3.579.2.627 1979 Unknown [id number] 2.16.8 40.1.270795.3.579.2.627 1979 Unknown [id number] 2.16.8 40.1.021201.3.579.2.627 1979 Unknown [id number] 2.16.84 0.1.428103.3.579.2.7 1979 Unknown [id number] 2.16.840 .1.777921.3.579.2.1247 1979 Unknown [id number] 2.16.8 40.1.600256.3.579.2.651 1979 Unknown [id number] 2.16.8 40.1.003296.3.579.2.651 Unknown [id number] 2.16.8 40.1.319398.3.579.2.462 Social History Date Type Detail Facility Start: 08-07-2020 End: 07-26-2024 Heavy tobacco smoker (finding) 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 Start: 11-19-2024 End: 11-25-2024 Not applicable (qualifier value) [facility] Functional Status Date Assessment Result Facility 11-25-2024 Functional Status [facility] 11-25-2024 [facility] 11-19-2024 Functional Status Up ad zhou [facility] 06-05-2024 Functional Status Awake [facility] 04-30-2024 Functional Status Awake [facility] 04-02-2024 Functional Status Sensory Deficits None [facility] 03-04-2024 Functional Status Awake [facility] 02-05-2024 Functional Status Watching TV [facility] 02-05-2024 Functional Status Repositions self [facility] 01-25-2024 Functional Status ID band on, Allergy Band on, Call device within reach, Bed in low position, Wheels locked, Upper/Half-Length side-rails up, personal items within reach, Bedside Cart Locked [facility] 12-21-2023 Functional Status ID band on, Call device within reach, personal items within reach, Non-Slip footwear [facility] 11-16-2023 Functional Status Up to chair [facility] 10-31-2023 Functional Status Up ad zhou [facility] 10-31-2023 Functional Status Independent [facility] 10-31-2023 Functional Status Maintained [facility] 10-26-2023 Functional Status Awake [facility] 10-19-2023 Functional Status Awake [facility] 09-25-2023 Functional Status Room check performed [facility] 09-25-2023 Functional Status Lunch Percent 100 [facility] 09-25-2023 Functional Status [facility] 09-25-2023 Functional Status Done [facility] 09-25-2023 Functional Status [facility] 09-25-2023 Functional Status [facility] 09-24-2023 Functional Status Nurse Lisette goss q2hrs Performed 11pm-3am [facility] 09-24-2023 Functional Status [facility] 09-24-2023 [...] spital 09-21-2023 Functional Status elevated on pillows [facility] 09-21-2023 Functional Status NPO Status Maintained A [facility] 09-21-2023 Functional Status [facility] 09-20-2023 Functional Status [facility] 09-20-2023 Functional Status [facility] 09-20-2023 Functional Status [facility] 09-19-2023 Functional Status [facility] 09-18-2023 Functional Status Single level home [facility] 09-18-2023 Functional Status Sensory Deficits None A [facility] 09-17-2023 Functional Status Repositions self [facility] 09-17-2023 [facility] Functional Status Nurse Safety Harriet goss q2hrs Performed 7am-7pm [facility] 09-17-2023 Functional Status [facility] 09-17-2023 Functional Status Lunch Percent 75 [facility] 09-17-2023 Functional Status Up to Chair Returned to bed [facility] 09-17-2023 Functional Status [facility] [place] 09-17-2023 Functional Status Door open, toileting offered, supervised while toileting, Room check performed [facility] 09-16-2023 Functional Status bilateral knee high removed/off [facility] 09-16-2023 Functional Status Diogo [facility] 09-16-2023 Functional Status Diogo [facility] 09-16-2023 Functional Status Diogo [place] [facility] 09-16-2023 Functional Status [facility] [place] [facility] 09-15-2023 Functional Status [facility] [place] 09-15-2023 Functional Status Diogo [facility] 09-15-2023 Functional Status Linen Change Done [facility] 09-14-2023 Functional Status Diogo [facility] 09-13-2023 Functional Status Diogo [facility] 09-13-2023 Functional Status Mobile home [facility] 09-13-2023 [facility]12[facility] Functional Status Hospital bed, turn and position system [facility] 08-31-2023 Functional Status Standard Safet y ID band on, Allergy Band on, Call device within reach, Bed in low position, Wheels locked, Upper/Half-Length side-rails up, Bedside Cart Locked, Safety level maintained [facility] 08-24-2023 Functional Status Awake [facility] 02-16-2023 Functional Status Awake, Up ad zhou [facility] 01-19-2023 Functional Status Awake, Up ad zhou [facility] 11-24-2022 Functional Status Repositions self [facility] 10-27-2022 Functional Status ID band on, Call device within reach [facility] 09-29-2022 Functional Status Awake [facility] 08-09-2022 Functional Status Room check performed [facility] 08-09-2022 [facility] Functional Status Done [facility] 08-09-2022 Functional [facility]ric [facility] Status [facility] Functional Status [facility] 08-06-2022 Functional Status SCD On/Re-appl ied bilateral knee [facility] 08-06-2022 Functional Status [facility] 08-06-2022 Functional Status SCD Removed/Of f bilateral knee [facility] 08-06-2022 Functional Status Mod I [facility] 08-06-2022 Functional Status Oral Care Independent [facility] 08-06-2022 Functional Status [facility] 08-05-20[facility] Functional Status [facility] 08-05-2022 Functional Status [facility] 08-05-2022 Functional Status [facility] 08-04-2022 Functional Status [facility] [place] [facility] 08-04-2022 Functional Status [facility] 08-04-2022 Functional Status [facility] 08-04-2022 Functional Status [facility] 08-03-2022 Functional Status NPO Status ice chips and sips taken [facility] 08-03-2022 Functional Status Ambulation in Room [facility] 08-03-2022 Functional Status [facility] 08-03-2022 Functional Status Supervised [facility] 08-02-2022 Functional Status Work [facility] 08-01-2022 Functional Status Sensory Deficits None [facility] 08-01-2022 Functional Status Standard Safet y ID band on, Allergy Band on, Call device within reach, Bed in low position, Wheels locked, Upper/Half-Length side-rails up, Bedside Cart Locked [facility] 08-01-2022 [facility]-12[facility] Functional Status Standard Safet y Safety level maintained [facility] 05-12-2022 Functional Status Awake, Up ad zhou [facility] 03-17-2022 Functional Status Resting [facility] 03-07-2022 Functional Status [facility] ad zhou [facility]-07-2022 Functional Status Maintained [facility] 01-26-2022 Functional Status Standard Safet y ID band on, Call device within reach, Bed in low position, Wheels locked, Upper/Half-Length side-rails up, Bedside Cart Locked, Safety level maintained [facility] 01-20-2022 Functional Status Remains up in chair [facility] 01-20-2022 Functional Status [facility] 12-23-2021 Functional Status Awake [facility] 09-22-2021 Functional Status Standard Safet y Safety level maintained [facility] 09-22-2021 Functional Status Room check performed [facility] 08-03-2021 Functional Status Independent [facility] 06-30-2021 Functional Status [facility] spital 06-30-2021 Functional Status [facility] spital 06-02-2021 Functional Status [facility] spital Functional observable [facility] Mental Status Date Assessment Result Facility 11-19-2024 Mental Status Orientation Oriented x 4 [facility] 06-05-2024 Mental Status Orientation Oriented x 4 [facility] 03-04-2024 Mental Status Orientation Oriented x 4 [facility] 02-05-2024 Mental Status Orientation Oriented x 4 [facility] 01-25-2024 Mental Status Oriented x 4 [facility] 12-21-2023 Mental Status Orientation Oriented x 4 [facility] 11-16-2023 Mental Status Orientation Oriented x 4 [facility] 10-31-2023 Mental Status Orientation Oriented x 4 [facility] 10-31-2023 Mental Status [facility] 10-26-2023 Mental Status Oriented x 4 [facility] 09-25-2023 Mental Status Oriented x 4 [facility] 09-24-2023 Mental Status [facility] 09-17-2023 Mental Status Orientation Oriented x 4 [facility] 09-17-2023 Mental Status [facility] 09-16-2023 Mental Status [facility] 09-15-2023 Mental Status [facility] 08-31-2023 Mental Status Orientation Oriented x 4 [facility] 08-24-2023 Mental Status Orientation Oriented x 4 [facility] 02-16-2023 Mental Status Orientation Oriented x 4 [facility] 01-19-2023 Mental Status Orientation Oriented x 4 [facility] 10-27-2022 Mental Status Orientation Oriented x 4 [facility] 08-13-2022 Cognitive functi ons [id number] [facility] 08-09-2022 Mental Status Orientation Oriented x 4 [facility] 08-09-2022 Mental Status [facility] 08-09-2022 Mental Status [facility] 08-01-2022 Mental Status Oriented x 4 [facility] 08-01-2022 Mental Status [facility] 06-09-2022 Mental Status Orientation Oriented x 4 [facility] 05-12-2022 Mental Status Orientation Oriented x 4 [facility] 03-17-2022 Mental Status Orientation Oriented x 4 [facility] 03-07-2022 Mental Status Orientation Oriented x 4 [facility] 03-07-2022 Mental Status [facility] 01-26-2022 Mental Status Orientation Oriented x 4 [facility] 01-20-2022 Mental Status Orientation Oriented x 4 [facility] 09-22-2021 Mental Status Orientation Oriented x 4 [facility] 08-03-2021 Mental Status Oriented x 4 [facility] 06-30-2021 Mental Status [facility] 06-02-2021 Mental Status [facility] Clinical Notes 08-03-2021 to 11-19-2024 LaboratoryRadiology Note [...] StatusPC Nurse Protime 11/27/2024 03:45 PM EDT [address] [address] Confirmed INF/OSP Labwork 12/17/2024 10:30 AM EST Infusion Therapy Confirmed INF Chemo: Infusion 120 min (2 hours) 12/17/2024 11:45 AM EST Infusion Therapy Confirmed CT Chest w/o Contrast 12/31/2024 03:00 PM [facility] Radiology [phone] Chest w/o Contrast 01/07/2025 09:00 AM [facility] Radiology [phone] Confirmed HEM ONC OV Follow Up w/ Active Treatme 01/14/2025 08:45 AM BHAVIK SWAN MD [facility] Confirmed Medications What How [...] to receive it can visit one of [facility] vaccine clinics. There are many vaccine clinic locations within the [facility]. For locations and available times, please visit [email or web address] . It is important to note that some COVID mobile vaccine clinics are held outdoors and may be canceled in rainy or stormy conditions. To learn more about pediatric vaccinations (ages 5-11), we invite you to visit the [facility] webpage. [email or web address]/pages [email or web address]-A sked-[email or web address] To learn more about the COVID-19 vaccine, we invite you to visit the CDC website for a list of frequently asked questions. https://www.cdc.gov/coronavirus/2019 -ncov/vaccines/faq.html [facility] Patient Portal Access Instructions: Stay connected with your healthcare team and access your personal medical information anytime with the [facility] Patient Portal.If you would like a full copy of your medical records, please contact the [facility] Medical Records Department, Monday through Monday between 8a.m. and 4:30p.m. Please follow the directions below to access the portal: 1.Access the email account you provided upon registration to the hospital.2.Look for an invitation email from [facility].3.Open the email and access the invitation link: Accept Invitation to [facility]4.Fill in the required delaney to create your account. To access your account, visit [facility]/[employer] or scan the [employer] code above. Click the blue button labeled [...] you will allow to register on the [facility] Patient Portal for access to your information. You can also access the [facility] Patient Portal on the [employer]. Simply click on "Health Records" under "Health Data" and then click on the [employer] logo. HOW TO SAFELY DISPOSE OF PRESCRIPTION [...] Call your local pharmacy or go to [email or web address] to find one close to you.3.Make use of household items: Use cat litter or old coffee grounds to dispose medications if other options are not available. Mix your drugs with these household products, seal them in an airtight container and throw it into the garbage. Call [facility]: [phone] to be sure your drugs can be [...] aware that I should contact my doctor. Patient/Forge Heater Signature: ___ Date/Time: Relationship to Patient: _ Witness Name/Signature: Date/Time: [facility] 10-22-2024 Note Chief Complaint pain History of [...] to go: Yes. Domestic Concerns: None. 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 Lives In: Single level home, 1st [...] his OHS. He has not seen his sample stitcher up in [place] for some time. I did suggest that [...] not wish to schedule with the outside sample stitcher. 11. Other secondary pulmonary hypertension 12. Paroxysmal [...] Medication Administration Given 9s1 100 mL + [id number] 480 mg, IV Piggyback. For: Metastatic renal [...] LIAN FUNG MD on 10/22/2024 12:[address] [facility] 10-22-2024 Summary of episode note LYNDSAY LOPEZ [...] Care Team Attending Physician - EZEQUIEL LEAL ELECTRICIAN OUTSIDE-APPARATUS REPAIR MECHANIC Primary Care Physician - PROSPER MANJARREZ DO [...] StatusPC Nurse Protime 10/23/2024 02:15 PM EDT [facility] [address] [place] [address] Confirmed PC OV 10/25/2024 02:00 PM EDT PROSPER MANJARREZ DO [facility] Confirmed HEM ONC OV Follow Up w/ Active Treatme 11/19/2024 09:30 AM EDT BHAVIK TRIANA MD [facility] Confirmed Medications What How [...] to receive it can visit one of [facility] vaccine clinics. There are many vaccine clinic locations within the [facility]. For locations and available times, please visit [email or web address] . It is important to note that some COVID mobile vaccine clinics are held outdoors and may be canceled in rainy or stormy conditions. To learn more about pediatric vaccinations (ages 5-11), we invite you to visit the [facility] webpage. [email or web address]/pages [email or web address] sked-[email or web address].html To learn more about the COVID-19 vaccine, we invite you to visit the CDC website for a list of frequently asked questions. https://www.cdc.gov/coronavirus/2019 -ncov/vaccines/faq.html [facility] Patient Portal Access Instructions: Stay connected with your healthcare team and access your personal medical information anytime with the [facility] Patient Portal.If you would like a full copy of your medical records, please contact the [facility] Medical Records Department, Monday through Monday between 8a.m. and 4:30p.m. Please follow the directions below to access the portal: 1.Access the email account you provided upon registration to the [facility].2.Look for an invitation email from [facility].3.Open the email and access the invitation link: Accept Invitation to [facility]4.Fill in the required delaney to create your account. Sign into www.[facility] with your username and password that you [...] you will allow to register on the [facility] Patient Portal for access to your information. You can also access the [facility] Patient Portal on the [employer]. Simply click on "Health Records" under "Health Data" and then click on the [employer] logo. HOW TO SAFELY DISPOSE OF PRESCRIPTION [...] Call your local pharmacy or go to [email or web address]://[email or web address] to find one close to you.3.Make use of household items: Use cat litter or old coffee grounds to dispose medications if other options are not available. Mix your drugs with these household products, seal them in an airtight container and throw it into the garbage. Call [facility]: [phone] to be sure your drugs can be [...] aware that I should contact my doctor. Patient/Forge Heater Signature: ___ Date/Time: Relationship to Patient: _ Witness Name/Signature: Date/Time: [facility] 10-19-2024 Note . MICRO - Microbiology PROCEDURE: [...] Locations *1: This test was performed at: [facility], [address] [place] [address], [id number] , [facility] 09-17-2024 Note Chief Complaint pain History [...] to go: Yes. Domestic Concerns: None. 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 Lives In: Single level home, 1st [...] Medication Administration Given 9s1 100 mL + dzby650 480 mg, IV Piggyback. For: Metastatic renal [...] LIAN FUNG MD on 09/17/2024 12:[address] [facility] 09-17-2024 Summary of episode note JESSICA LYNDSAY [...] Chest w/o Contrast 10/08/2024 11:00 AM EDT [facility] [phone] Abdomen/Pelvis w/Oral Contrast Only 10/08/2024 11:30 AM EDT [facility] [phone] Confirmed PC Nurse Protime 10/14/2024 02:15 PM EDT [facility] Ivelisse Cao Confirmed HEM ONC OV Follow Up w/ Active Treatme 10/15/2024 09:15 AM EDT BHAVIK TRIANA MD [facility] Confirmed PC OV 10/25/2024 02:00 PM EDT PROSPER MANJARREZ DO [facility] Ivelisse Cao Confirmed Medications What [...] to receive it can visit one of [facility] vaccine clinics. There are many vaccine clinic locations within the [facility]. For locations and available times, please visit www.[email or web address].gov/ . It is important to note that some COVID mobile vaccine clinics are held outdoors and may be canceled in rainy or stormy conditions. To learn more about pediatric vaccinations (ages 5-11), we invite you to visit the [facility] webpage. https://www.[email or web address].org/pages /[email or web address]-Lhggz-Kmipredpsww-Frequently-A sked-Questions.html To learn more about the COVID-19 vaccine, we invite you to visit the CDC website for a list of frequently asked questions. https://www.cdc.gov/coronavirus/2019 -ncov/vaccines/faq.html [facility] Patient Portal Access Instructions: Stay connected with your healthcare team and access your personal medical information anytime with the [facility] Patient Portal.If you would like a full copy of your medical records, please contact the [facility] Medical Records Department, Monday through Monday between 8a.m. and 4:30p.m. Please follow the directions below to access the portal: 1.Access the email account you provided upon registration to the [facility].2.Look for an invitation email from [facility].3.Open the email and access the invitation link: Accept Invitation to [facility]4.Fill in the required delaney to create your account. Sign into www.[employer] with your username and password that you [...] you will allow to register on the [facility] Patient Portal for access to your information. You can also access the [facility] Patient Portal on the [employer] julia. Simply click on "Health Records" under "Health Data" and then click on the [employer] logo. HOW TO SAFELY DISPOSE OF PRESCRIPTION [...] Call your local pharmacy or go to http://bit.ly/5G5Ik2z to find one close to you.3.Make use of household items: Use cat litter or old coffee grounds to dispose medications if other options are not available. Mix your drugs with these household products, seal them in an airtight container and throw it into the garbage. Call [facility]: [phone] to be sure your drugs can be [...] aware that I should contact my doctor. Patient/Forge Heater Signature: ___ Date/Time: Relationship to Patient: _ Witness Name/Signature: Date/Time: [facility] 09-14-2024 Evaluation + Plan note Future Appointments [...] 01/11/24CT Abdomen and Pelvis w/o contrast 05/21/24 [facility] 08-07-2024 Summary of episode note LYNDSAY LOPEZ [...] [facility] Confirmed PC OV TCM 30 08/09/2024 11:00 AM EDT PROSPER MANJARREZ DO [facility] Confirmed PALL OV Follow Up 08/28/2024 11:00 AM EDT LIAN FUNG MD Palliative Care Confirmed HEM ONC OV Follow Up w/ELECTRICIAN OUTSIDE Active Treat 09/17/2024 10:30 AM EDT EZEQUIEL LEAL ELECTRICIAN OUTSIDE-APPARATUS REPAIR MECHANIC [facility] Confirmed Medications What [...] to receive it can visit one of [facility] vaccine clinics. There are many vaccine clinic locations within the [facility]. For locations and available times, please visit www.[email or web address].gov/ . It is important to note that some COVID mobile vaccine clinics are held outdoors and may be canceled in rainy or stormy conditions. To learn more about pediatric vaccinations (ages 5-11), we invite you to visit the [facility] webpage. https://www.[facility].org/pages /1268-Hhbpl-Bujoippvncy-Frequently-A sked-Questions.html To learn more about the COVID-19 vaccine, we invite you to visit the CDC website for a list of frequently asked questions. https://www.cdc.gov/coronavirus/2019 -ncov/vaccines/faq.html [facility] Patient Portal Access Instructions: Stay connected with your healthcare team and access your personal medical information anytime with the [facility] Patient Portal.If you would like a full copy of your medical records, please contact the [facility] Medical Records Department, Monday through Monday between 8a.m. and 4:30p.m. Please follow the directions below to access the portal: 1.Access the email account you provided upon registration to the hospital.2.Look for an invitation email from [facility].3.Open the email and access the invitation link: Accept Invitation to [facility]4.Fill in the required delaney to create your account. Sign into www.[employer] with your username and password that you [...] you will allow to register on the [facility] Patient Portal for access to your information. You can also access the [facility] Patient Portal on the [employer] julia. Simply click on "Health Records" under [...] Call your local pharmacy or go to [email or web address] to find one close to you.3.Make use of household items: Use cat litter or old coffee grounds to dispose medications if other options are not available. Mix your drugs with these household products, seal them in an airtight container and throw it into the garbage. Call [facility]: [phone] to be sure your drugs can be [...] aware that I should contact my doctor. Patient/Forge Heater Signature: ___ Date/Time: Relationship to Patient: _ Witness Name/Signature: Date/Time: [facility] 08-01-2024 Nurse Progress note I have assisted and/or overseen the care and medication administration for this patient by Piper MCDANIEL. I have reviewed and agree with her charting. Digitally Signed by Luzma Watson RN on 08/01/2024 01:[address] [facility] 08-01-2024 Note Discharge Instructions Thank you for allowing [facility] to assist you with your healthcare needs. [...] AISHWARYA HAMLIN MD [facility] General [facility] Confirmed PALL OV Follow Up 08/28/2024 11:00 AM EDT LIAN FUNG MD Palliative Care Confirmed Follow Up Appointments Follow Up with Nicolas jo RN visit has been scheduled for 08/06 and 08/15. When:Within 1-2 days Follow Up with PROSPER MANJARREZ When:Within 1-2 days Where:[address] [facility] [place] [address] [phone] Business (1) Follow Up with [facility]- patient had home medication brought in. Please send home with patient. Follow Up with AISHWARYA HAMLIN MD, Surgery When:08/08/2024 02:00 PM EDT Where:[address] [place] [address]- Additional Information: Please call the office to [...] a day Duration: 14 Days Pickup at [facility]/pharmacy #4605 Unchanged minocycline (minocycline 100 mg oral capsule) 1 cap by mouth Every 12 hours Duration: [facility] Unchanged ondansetron (Zofran 4 mg oral [...] by mouth Once a day Pharmacy Information [facility]/pharmacy #[id number]: [address], [place] [phone] Please take this list to your next doctor s visit. Bring all medications you take, including over the counter medications, herbals and other supplements with you to your doctor s visit. Patients and families are reminded to discard old lists and to update any records with all medication providers or retail pharmacies. Medication Leaflets minocycline (kody michaud) Minocin, Minocin PAC, Solodyn, Ximino What [...] may report side effects to FDA at 9-638-GEN-8417. What other drugs will affect minocycline? Tell your doctor about all your other medicines, especially: isotretinoin; a penicillin antibiotic--amoxicillin, ampicillin, dicloxacillin, oxacillin, penicillin, ticarcillin, Amoxil, Moxatag, Augmentin, Principen, and others; a blood thinner--warfarin, Coumadin, Jantoven; or ergot medicine--dihydroergotamine, ergotamine, ergonovine, methylergonovine. This list is not complete. Other drugs may affect minocycline, including prescription and nmvd-jqz-dsqjoif medicines, vitamins, and herbal products. Not all [...] to ensure that the information provided by [employer]. ('Multum') is accurate, up-to-date, and complete, but no guarantee is made to that effect. Drug information contained herein may be time sensitive. FaceTags information has been compiled for use by healthcare practitioners and consumers in the [place] and therefore [employer] does not warrant that uses outside of the [place] are appropriate, unless specifically indicated otherwise. [employer] drug information does not endorse drugs, diagnose patients or recommend therapy. [employer] drug information is an informational resource designed [...] effective or appropriate for any given patient. [employer] does not assume any responsibility for any aspect of healthcare administered with the aid of information FaceTags provides. The information contained herein is not intended to cover all possible uses, directions, precautions, warnings, drug interactions, allergic reactions, or adverse effects. If you have questions about the drugs you are taking, check with your doctor, nurse or pharmacist. Copyright 7356-0794 [employer]. Version: 17.01. Revision Date: 09/15/2022. oxycodone (ox [...] were not tolerated. Extended-release oxycodone is for rbpfiv-yxe-vjjhw treatment of severe and chronic pain that [...] by your doctor. Stop taking all other mbepaj-fhp-qpems opioid pain medicines when you start taking [...] may report side effects to FDA at 1-732-KXV-2113. What other drugs will affect oxycodone? You [...] may affect oxycodone. This includes prescription and zwil-djx-igghcar medicines, vitamins, and herbal products. Not all [...] to ensure that the information provided by [employer]. ('Multum') is accurate, up-to-date, and complete, but no guarantee is made to that effect. Drug information contained herein may be time sensitive. FaceTags information has been compiled for use by healthcare practitioners and consumers in the [place] and therefore FaceTags does not warrant that uses outside of the [place] are appropriate, unless specifically indicated otherwise. Face[employer]'s drug information does not endorse drugs, diagnose patients or recommend therapy. [employer] drug information is an informational resource designed [...] effective or appropriate for any given patient. [employer] does not assume any responsibility for any aspect of healthcare administered with the aid of information FaceTags provides. The information contained herein is not intended to cover all possible uses, directions, precautions, warnings, drug interactions, allergic reactions, or adverse effects. If you have questions about the drugs you are taking, check with your doctor, nurse or pharmacist. Copyright 3219-4085 [employer]. Version: 17.. Revision Date: 03/07/2023. Education Materials [...] any narcotic pain medication. You may take efnz-nzc-owretrm pain medication if you no longer need your prescribed pain medication. Qfjm-rky-lznaiiu pain medications are Tylenol or Advil/Motrin (ibuprofen). Do not take Tylenol if you are still taking [place] or Percocet. They are the same type [...] the sides and are almost falling off. [place] or sutures are generally removed within seven [...] to receive it can visit one of [facility] vaccine clinics. There are many vaccine clinic locations within the [facility]. For locations and available times, please visit [email or web address] [email or web address] It is important to note that some COVID mobile vaccine clinics are held outdoors and may be canceled in rainy or stormy conditions. To learn more about pediatric vaccinations (ages 5-11), we invite you to visit the [facility] webpage. https://www.[facility].org/pages /8894-Xtdnr-Mchsjuptkox-Frequently-A sked-Questions.html To learn more about the COVID-19 vaccine, we invite you to visit the CDC website for a list of frequently asked questions.https://www.cdc.gov/deluca virus/2019-ncov/vaccines/faq.html [facility] Patient Portal Access Instructions: Stay connected with your healthcare team and access your personal medical information anytime with the [facility] Patient Portal. Please follow the directions below to create your [facility] account: 1.Access the email account you provided upon registration to the hospital/physician office.2.Look for an invitation email from [facility].3.Open the email and access the invitation link: Accept Invitation to [facility].4.Fill in the required delaney to create your account. To access your account, visit [email or web address]. Click the blue button labeled "Access Patient [...] you will allow to register on the [facility] Patient Portal for access to your information. You can also access the [facility] Portal on the [employer] julia. Simply click on "Patient Portal" and then log into your account. If you would like to receive a full copy of your medical records, please contact the [facility] Medical Records Department by calling [phone], Monday through Monday between 8 a.m. and [...] Call your local pharmacy or go to [email or web address] to find one close to you.3.Make use of household items: Use cat litter or old coffee grounds to dispose medications if other options are not available. Mix your drugs with these household products, seal them in an airtight container and throw it into the garbage. Call [facility]: [phone] to be sure your drugs can be [...] aware that I should contact my doctor. Patient/Forge Heater Signature: ___ Date/Time: Relationship to Patient: _ Witness Name/Signature: Date/Time: [facility] 08-01-2024 Note Event Display: SP Cl in Info Procedure: INCISION AND DRAINAGE OF RIGHT THIGH DUE TO MULTIPLE ABSCESSES Preoperative diagnosis: MULTIPLE RIGHT THIGH ABSCESSES Postoperative diagnosis: MULTIPLE RIGHT THIGH ABSCESSES DEMI LONG MD:VERIFY; Authored Date: [id number] [facility] 08-01-2024 Discharge summary Date of Service 08/01/2024 [...] Surgery When:08/08/2024 02:00 PM EDT Where:[address] [facility] [place] [address]- Additional Information: Please call the office to [...] by DELICIA MORALES on 08/01/2024 11:[address] [facility] 07-31-2024 Nurse Progress note I have overseen and/or assisted Piper MCDANIEL with the care and medication administration of this patient. I have reviewed and agree with her charting Digitally Signed by Luzma Watson RN on 07/31/2024 03:[address] [facility] 07-31-2024 Surgery Hospital Progress note Date of [...] by DELICIA MORALES on 07/31/2024 02:[address] [facility] 07-31-2024 Hospital Discharge instructions Patient Education 07/31/2024 [...] any narcotic pain medication. You may take guui-auu-irgkfln pain medication if you no longer need your prescribed pain medication. Gbwo-mwm-syyxctw pain medications are Tylenol or Advil/Motrin (ibuprofen). Do not take Tylenol if you are still taking [place] or Percocet. They are the same type [...] the sides and are almost falling off. [place] or sutures are generally removed within seven [...] days With:PROSPER MANJARREZ Address: [address] [place] [phone] Business (1) When:1-2 days With:AISHWARYA HAMLIN MD, Surgery Address: [address] [place] [address]- When:08/08/2024 14:00:00 Comments:Please call the office to schedule a hospital follow up appointment. With:[facility]- patient had home medication brought in. Please send home with patient. Address: When: Unknown [facility] 07-31-2024 Note Discharge Instructions Thank you for [...] 08/01/2024 02:40 PM EDT [facility]LIN [facility] Confirmed GS OV Post Op 08/05/2024 02:10 PM EDT AISHWARYA HAMLIN MD [facility] Confirmed PALL OV Follow Up 08/28/2024 11:00 AM EDT LIAN FUNG MD [facility] Confirmed Follow Up Appointments Follow Up with AISHWARYA HAMLIN MD, Surgery When:Within 3-5 days Where:[address] [facility] [address] [place] [address] [phone] Additional Information: Please call the office to [...] a day Duration: 14 Days Pickup at [facility]/pharmacy #6918 Unchanged minocycline (minocycline 100 mg oral capsule) 1 cap by mouth Every 12 hours Duration: 14 Days Pickup at [facility]/pharmacy #4605 Unchanged ondansetron (Zofran 4 mg oral [...] by mouth Once a day Pharmacy Information [facility]/pharmacy #4605: [address], [place] [phone] Please take this list to your next [...] may report side effects to FDA at 4-911-ZQT-7855. What other drugs will affect minocycline? Tell your doctor about all your other medicines, especially: isotretinoin; a penicillin antibiotic--amoxicillin, ampicillin, dicloxacillin, oxacillin, penicillin, ticarcillin, Amoxil, Moxatag, Augmentin, Principen, and others; a blood thinner--warfarin, Coumadin, Jantoven; or ergot medicine--dihydroergotamine, ergotamine, ergonovine, methylergonovine. This list is not complete. Other drugs may affect minocycline, including prescription and kwjl-ajs-ulqzrcx medicines, vitamins, and herbal products. Not all [...] to ensure that the information provided by [employer]. ('Multum') is accurate, up-to-date, and complete, but no guarantee is made to that effect. Drug information contained herein may be time sensitive. FaceTags information has been compiled for use by healthcare practitioners and consumers in the [place] and therefore [employer]Tags does not warrant that uses outside of the [place] are appropriate, unless specifically indicated otherwise. [employer] drug information does not endorse drugs, diagnose patients or recommend therapy. [employer] drug information is an informational resource designed [...] effective or appropriate for any given patient. [facility] does not assume any responsibility for any aspect of healthcare administered with the aid of information [facility] provides. The information contained herein is not intended to cover all possible uses, directions, precautions, warnings, drug interactions, allergic reactions, or adverse effects. If you have questions about the drugs you are taking, check with your doctor, nurse or pharmacist. Copyright 6400-4993 [facility] [employer]. Version: 17.. Revision Date: 09/15/2022. oxycodone (ox [...] were not tolerated. Extended-release oxycodone is for hbtthj-ftm-jqmye treatment of severe and chronic pain that [...] by your doctor. Stop taking all other wfgzmr-qlr-pyypg opioid pain medicines when you start taking [...] may report side effects to FDA at 8-224-DCW-5323. What other drugs will affect oxycodone? You [...] may affect oxycodone. This includes prescription and ktpv-gfu-pvzplzu medicines, vitamins, and herbal products. Not all [...] to ensure that the information provided by [employer]. ('Multum') is accurate, up-to-date, and complete, but no guarantee is made to that effect. Drug information contained herein may be time sensitive. FaceTags information has been compiled for use by healthcare practitioners and consumers in the [place] and therefore [employer]Tags does not warrant that uses outside of the [place] are appropriate, unless specifically indicated otherwise. [employer] drug information does not endorse drugs, diagnose patients or recommend therapy. [employer] drug information is an informational resource designed [...] effective or appropriate for any given patient. [employer] does not assume any responsibility for any aspect of healthcare administered with the aid of information FaceTags provides. The information contained herein is not intended to cover all possible uses, directions, precautions, warnings, drug interactions, allergic reactions, or adverse effects. If you have questions about the drugs you are taking, check with your doctor, nurse or pharmacist. Copyright 7631-8539 [employer]. Version: 17.. Revision Date: 03/07/2023. Education Materials [...] any narcotic pain medication. You may take tdwz-ynu-oqqwmzo pain medication if you no longer need your prescribed pain medication. Moie-oqp-kvvvahk pain medications are Tylenol or Advil/Motrin (ibuprofen). Do not take Tylenol if you are still taking [place] or Percocet. They are the same type [...] the sides and are almost falling off. [place] or sutures are generally removed within seven [...] to receive it can visit one of [facility] vaccine clinics. There are many vaccine clinic locations within the [facility]. For locations and available times, please visit [email or web address] [email or web address] It is important to note that some COVID mobile vaccine clinics are held outdoors and may be canceled in rainy or stormy conditions. To learn more about pediatric vaccinations (ages 5-11), we invite you to visit the [facility] webpage. https://www.[facility].org/pages /8512-Uvxvt-Ffvwfofsksj-Frequently-A sked-Questions.html To learn more about the COVID-19 vaccine, we invite you to visit the CDC website for a list of frequently asked questions.https://www.cdc.gov/deluca virus/2019-ncov/vaccines/faq.html [facility] Patient Portal Access Instructions: Stay connected with your healthcare team and access your personal medical information anytime with the [facility] Patient Portal. Please follow the directions below to create your [employer] account: 1.Access the email account you provided upon registration to the hospital/physician office.2.Look for an invitation email from [facility].3.Open the email and access the invitation link: Accept Invitation to [facility].4.Fill in the required delaney to create your account. To access your account, visit [email or web address]. Click the blue button labeled "Access Patient [...] you will allow to register on the [facility] Patient Portal for access to your information. You can also access the [facility] [place] Patient Portal on the Diogo Anywhere julia. Simply click on "Patient Portal" and then log into your account. If you would like to receive a full copy of your medical records, please contact the [facility] Medical Records Department by calling [phone], Monday through Monday between 8 a.m. and [...] Call your local pharmacy or go to [email or web address] to find one close to you.3.Make use of household items: Use cat litter or old coffee grounds to dispose medications if other options are not available. Mix your drugs with these household products, seal them in an airtight container and throw it into the garbage. Call [facility]: [phone] to be sure your drugs can be [...] aware that I should contact my doctor. Patient/Forge Heater Signature: ___ Date/Time: Relationship to Patient: _ Witness Name/Signature: Date/Time: [facility] 07-31-2024 Discharge summary Date of Service 07/31/2024 [...] dry until seen in the office in [place] tomorrow. Instructions were given regarding anticoagulation that [...] Surgery When:08/01/2024 02:40 PM EDT Where:[address] [facility] [address] [facility] [place] [address]- Follow Up Appointments No qualifying data available. Follow Up Labs/Studies Discharge Labs No Follow-up Labs Discharge Studies No Follow-up Studies Discharge Diet No qualifying data available. Discharge Activity No qualifying data available. Condition on Discharge Stable Readmission Risk/Palliative Score No qualifying data available. Discharge Disposition Home Information Provided To Patient Time Spent 20 minutes Digitally Signed by DELICIA MORALES on 07/31/2024 09:[address] [facility] 07-31-2024 Surgery Hospital Progress note Date of [...] by DELICIA MORALES on 07/31/2024 08:[address] [facility] 07-31-2024 Surgery Hospital Progress note Date of [...] by DELICIA MORALES on 07/31/2024 08:[address] [facility] 07-31-2024 Anesthesiology Consult note Patient: LYNDSAY LOPEZ [...] PAM ROME MD on 07/31/2024 01:[address] [facility] 07-30-[address] Hamlin called due to bleeding through wound dressing. Attempt to stop bleeding at bedside unsuccessful. Returning to OR for exploration of groin. Discussed with pt and agrees to proceed with general anesthesia and LMA. Digitally Signed by PAM ROME MD on 07/30/2024 11:[address] [facility] 07-30-2024 Surgery Hospital Progress note Date of [...] AISHWARYA HAMLIN MD on 07/30/2024 11:[address] [facility] 07-30-2024 Nurse Progress note pressure held numerous times for 20 minutes at a time, wound continues to drip blood Digitally Signed by HENOK Causey on 07/30/2024 09:[address] [facility] 07-30-2024 Anesthesiology Consult note Patient: LYNDSAY LOPEZ [...] PAM ROME MD on 07/30/2024 07:[address] [facility] 07-30-2024 History and physical note Date of Service 07/30/2024 History and Physical Update I have examined the patient; reviewed the History and Physical and there are no changes to the History and Physical unless noted below. Digitally Signed by AISHWARYA HAMLIN MD on 07/30/2024 04:[address] [facility] 07-30-2024 Anesthesiology Consult note Patient: LYNDSAY LOPEZ [...] Abscess of right leg / SNOMED CT 629263940 / Confirmed Cigarette smoker Active / SNOMED CT 983273053 / Confirmed T11 vertebral fracture / SNOMED CT 8923345116 / Confirmed History of pulmonary embolism / SNOMED CT 321878393 / Confirmed Marijuana user Active / SNOMED CT 0388292664 / Confirmed Metastatic renal cell carcinoma. S/P Left cytoreductive nephrectomy 08/14/20. 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 / SNOMED CT 0208495513 / Confirmed Morbid obesity due to excess calories / SNOMED CT 175463414 / Confirmed Lung nodule, multiple Active / SNOMED CT 8368981350 / Confirmed Cancer related pain / SNOMED CT 6887383026 / Confirmed Paroxysmal atrial fibrillation / SNOMED CT 243208765 / Confirmed Palliative care encounter / SNOMED CT 576031366 / Confirmed Secondary malignant neoplasm of bone (disorder) Active / SNOMED CT 388870998 / Confirmed Therapeutic opioid-induced constipation (OIC) / SNOMED CT 7618762497 / Confirmed Tobacco abuse / SNOMED CT 875316409 / Confirmed, Active Problems (30) Abscess of [...] Histories Past Medical History: Resolved Viral gastroenteritis (909232681): Resolved. Alcohol abuse (87999621): Resolved. Comments: 01/31/2024 EST 21:08 HAN - PROSPER MANJARREZ DO No alcohol use since August 2023 Left renal mass. 9.6-cm. With perinephric fat invasion. With lytic bony lesion and pulmonary nodules concerning for mets. BS, 07/2020 - neg. CT brain, 07/2020 - neg. S/P Radical nephrectomy 08/14/20. (596475931): Resolved. Renal cell carcinoma (disorder) Active (4738413026): Resolved. Family History: Kidney stone Mother Sister Rheumatoid arthritis Mother Heart attack Father Gastrointestinal ulcer Father Crohn's disease Sister HTN - Hypertension Mother Father Diabetes Father Procedure history: Drainage (808915791) on 01/25/2024 at 43 Years. Comments: 02/01/2024 12:05 Piper Ceballos back of right thigh drainage Atriotomy (66280976) on 08/18/2022 at 42 Years. Comments: 07/26/2024 7:31 HENOK Giraldo with removal of of right atrial mass Pulmonary embolectomy (996811890) on 08/18/2022 at 42 Years. Cardioversion (759489990) in the month of 07/2022 at 42 Years. Implantable venous access port (1938370228) in the month of 02/2022 at 41 Years. Tooth extraction (89581401) on 08/28/2021 at 41 Years. Nephrectomy, including partial ureterectomy, any open approach including rib resection; radical, with regional lymphadenectomy and/or vena caval thrombectomy (75020) on 08/14/2020 at 40 Years. Tonsillectomy (402943832) in 1988 at 7 Years. Chemotherapy (193115237). Comments: 11/17/2020 9:50 HENOK Bucio 3 weeks ago Boost radiation therapy (5376544943). 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 Assessment and Plan [place] [employer] Anesthesiologists (ASA) physical status classification: Class IV. Anesthetic Preoperative Plan Premedication: intravenous. Anesthetic technique: General. Induction: intravenously. Maintenance airway: Laryngeal mask airway. Postoperative pain management: Per surgeon. Risks discussed: nausea, vomiting, headache, sore throat, dental injury, hypotension, allergic reaction, serious complications. Informed consent: signed by patient. Digitally Signed by PAM ROME MD on 07/30/2024 04:[address] [facility] 07-26-2024 Hospital Discharge instructions Follow Up Care 07/26/2024 19:39:05 With:PROSPER MANJARREZ DO Address: [address] [place] [address]- [phone] When:2-4 days [facility] 07-26-2024 Note . MICRO - Microbiology [...] management. Please contact Microbiology with any questions ([id number]). Few normal skin monie present Sensitivity testing [...] management. Please contact Microbiology with any questions ([phone]). Few normal skin monie present Sensitivity testing [...] <=2 Susceptible Tazobactam Ceftriaxone >32 Suspected ESBL Safe And Vault Installer Cefuroxime >16 Resistant Ciprofloxacin >2 Resistant Ertapenem [...] Locations *1: Th (more content not included)... [facility] 07-03-2024 Summary of episode note LYNDSAY LOPEZ [...] - Echocardiogram Adult 07/23/2024 11:00 AM T [facility] [phone] Confirmed HEM ONC OV Follow Up w/ [...] to receive it can visit one of [facility] vaccine clinics. There are many vaccine clinic locations within the [facility]. For locations and available times, please visit www.gettheshot.coronavirus.[place].gov/ . It is important to note that some COVID mobile vaccine clinics are held outdoors and may be canceled in rainy or stormy conditions. To learn more about pediatric vaccinations (ages 5-11), we invite you to visit the [facility] webpage. https://www.[facility].org/pages /9170-Gmwpl-Aqzpyuzyspy-Frequently-A sked-Questions.html To learn more about the COVID-19 vaccine, we invite you to visit the CDC website for a list of frequently asked questions. https://www.cdc.gov/coronavirus/2019 -ncov/vaccines/faq.html [facility] Patient Portal Access Instructions: Stay connected with your healthcare team and access your personal medical information anytime with the [facility] Patient Portal.If you would like a full copy of your medical records, please contact the [facility] Medical Records Department, Monday through Monday between 8a.m. and 4:30p.m. Please follow the directions below to access the portal: 1.Access the email account you provided upon registration to the [facility].2.Look for an invitation email from [facility].3.Open the email and access the invitation link: Accept Invitation to Di[facility]Meteor4.Fill in the required delaney to create your account. Sign into www.[employer] with your username and password that you [...] you will allow to register on the [facility] Patient Portal for access to your information. You can also access the [facility] Patient Portal on the [employer] julia. Simply click on "Health Records" under "Health Data" and then click on the Inte[employer] IP Services logo. HOW TO SAFELY DISPOSE OF PRESCRIPTION [...] Call your local pharmacy or go to [email or web address] to find one close to you.3.Make use of household items: Use cat litter or old coffee grounds to dispose medications if other options are not available. Mix your drugs with these household products, seal them in an airtight container and throw it into the garbage. Call [facility]: [phone] to be sure your drugs can be [...] aware that I should contact my doctor. Patient/Forge Heater Signature: ___ Date/Time: Relationship to Patient: _ Witness Name/Signature: Date/Time: [facility] 06-26-2024 Note Exam Date Time Procedure Performing Provider Status 06/26/24 2:[address] Abdomen/Pelvis w/Contrast ZACARIAS DENNIS MD; Auth (Verified) [id number] ORIGINAL EXAMINATION: CT OF THE ABDOMEN AND [...] Sign Date: 06/26/2024 4:46:12 PM Ordering Provider: [facility]04-23-2025 Summary of episode note LYNDSAY LOPEZ :1980 [...] Care Team Attending Physician - EZEQUIEL LEAL ELECTRICIAN OUTSIDE-APPARATUS REPAIR MECHANIC Primary Care Physician - PROSPER MANJARREZ DO [...] 06/13/2024 02:30 PM EDT PROSPER MANJARREZ DO [facility] Confirmed yyCT Abdomen and Pelvis w/ Contrast 3 06/26/2024 01:00 PM EDT [facility] [phone] Confirmed yyCT Chest w/ Contrast 3 06/26/2024 01:30 PM EDT [facility] [phone] Confirmed HEM ONC OV Follow Up w/ [...] to receive it can visit one of [facility] vaccine clinics. There are many vaccine clinic locations within the [facility]. For locations and available times, please visit www.gettheshot.coronavirus.[place].gov/. It is important to note that some COVID mobile vaccine clinics are held outdoors and may be canceled in rainy or stormy conditions. To learn more about pediatric vaccinations (ages 5-11), we invite you to visit the [facility] webpage. https://www.akronWurls.org/pages/5745-Ecnad-Ezgaaqsqcuo-Anjacwtqlw-Dfgxa-Guu stions.htmlTo learn more about the COVID-19 vaccine, we invite you to visit the CDC website for a list of frequently asked questions. https://www.cdc.gov/coronavirus/2019-ncov/vaccines/faq.html [facility] Patient Portal Access Instructions: Stay connected with your healthcare team and access your personal medical information anytime with the [facility] Patient Portal.If you would like a full copy of your medical records, please contact the [facility] Medical Records Department, Monday through Monday between 8a.m. and 4:30p.m. Please follow the directions below to access the portal: 1.Access the email account you provided upon registration to the hospital.2.Look for an invitation email from [facility].3.Open the email and access the invitation link: Accept Invitation to [facility]Meteor4.Fill in the required delaney to create your account. Sign into www.[employer] with your username and password that you [...] you will allow to register on the [facility] Patient Portal for access to your information. You can also access the [facility] Patient Portal on the Dynamighty. Simply click on "Health Records" under "HealthData" and then click on the [employer] logo. HOW TO SAFELY DISPOSE OF PRESCRIPTION [...] Call your local pharmacy or go to [email or web address] to find one close to you.3.Make use of household items: Use cat litter or old coffee grounds to dispose medications if other options arenot available. Mix your drugs with these household products, seal them in an airtight container andthrow it into the garbage. Call [facility]: [phone] to be sure your drugs can be [...] aware that I should contact my doctor. Patient/Forge Heater Signature: Date/Time: Relationship to Patient: Witness Name/Signature: Date/Time[facility]10 Summary of episode note LYNDSAY LOPEZ :1980 Visit Date:04/30/2024 Your Visit Summary Your Diagnosis Metastatic renal cell carcinoma. S/P Left cytoreductive nephrectomy 08/14/20. Final path - ccRCC withsarcomatoid features. Metastatic renal cell carcinoma. S/P Left cytoreductive nephrectomy 08/14/20. Final path - ccRCC withsarcomatoid features. [facility] ([facility] drug therapy Secondary malignant neoplasm of [...] Pelvis w/o Contrast 05/21/2024 01:15 PM EDT [facility] [phone] Confirmed yyCT Chest w/o Contrast 05/21/2024 01:45 PM EDT [facility] [phone] Confirmed PC Nurse Protime 05/22/2024 02:15 PM EDT [facility] [address] [place] [address] Confirmed HEM ONC OV Follow Up w/ Active Treatme 05/28/2024 10:15 AM EDT BHAVIK TRIANA MD Hematology and Oncology Confirmed PALL OV Follow Up 05/28/2024 01:00 PM EDT LIAN FUNG MD Palliative Care Confirmed PC OV 05/29/2024 02:00 PM EDT PROSPER MANJARREZ DO [address] [place] [address] Confirmed Medications What How Much [...] to receive it can visit one of [facility] vaccine clinics. There are many vaccine clinic locations within the [facility]. For locations and available times, please visit www.gettheshot.coronavirus.[place].gov/. It is important to note that some COVID mobile vaccine clinics are held outdoors and may be canceled in rainy or stormy conditions. To learn more about pediatric vaccinations (ages 5-11), we invite you to visit the [facility] webpage. https://www.Portal Solutionss.org/pages/9851-Jmlzn-Wynupeanqed-Nuorkvcens-Mbdfi-Hvh stions.htmlTo learn more about the COVID-19 vaccine, we invite you to visit the CDC website for a list of frequently asked questions. https://www.cdc.gov/coronavirus/2019-ncov/vaccines/faq.html [facility] Patient Portal Access Instructions: Stay connected with your healthcare team and access your personal medical information anytime with the [facility] Patient Portal.If you would like a full copy of your medical records, please contact the [facility] Medical Records Department, Monday through Monday between 8a.m. and 4:30p.m. Please follow the directions below to access the portal: 1.Access the email account you provided upon registration to the hospital.2.Look for an invitation email from [facility].3.Open the email and access the invitation link: Accept Invitation to [facility]4.Fill in the required delaney to create your account. Sign into www.[employer] with your username and password that you [...] you will allow to register on the [facility] Patient Portal for access to your information. You can also access the [facility] Patient Portal on the Dynamighty. Simply click on "Health Records" under "HealthData" and then click on the [employer] logo. HOW TO SAFELY DISPOSE OF PRESCRIPTION [...] Call your local pharmacy or go to [email or web address] to find one close to you.3.Make use of household items: Use cat litter or old coffee grounds to dispose medications if other options arenot available. Mix your drugs with these household products, seal them in an airtight container andthrow it into the garbage. Call [facility]: [phone] to be sure your drugs can be [...] aware that I should contact my doctor. Patient/Forge Heater Signature: Date/Time: Relationship to Patient: Witness Name/Signature: Date/Time: [id number] Note. MICRO - Microbiology PROCEDURE: Urine Culture [...] RESULTS Enterobacter cloacae complex Antibiotic KEN Dilut KEN Inter Ampicillin 16 Intermediate Ampicillin/ 16/8 Intermediate [...] Locations *1: This test was performed at: [facility], [address] [place] [address], [address]- , [facility] [id number] Summary of episode note LYNDSAY LOPEZ :1980 Visit Date:04/02/2024 Your Visit Summary Your Diagnosis Metastatic renal cell carcinoma. S/P Left cytoreductive nephrectomy 08/14/20. Final path - ccRCC withsarcomatoid features. Metastatic renal cell carcinoma. S/P Left cytoreductive nephrectomy 08/14/20. Final path - ccRCC withsarcomatoid features. 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 Secondary malignant neoplasm of [...] OV 04/04/2024 02:00 PM AISHWARYA MASTERSON MD [facility] General Surgery [facility] Confirmed CV OV 04/10/2024 10:30 AM HAN [facility] Confirmed PC Nurse Protime 04/24/2024 02:15 PM EDT [facility] [address] [place] [address] Confirmed HEM ONC OV Follow Up w/ELECTRICIAN OUTSIDE Active Treat 04/30/2024 01:30 PM EDT EZEQUIEL LEAL Hematology and Oncology Confirmed PALL OV Follow Up 05/28/2024 01:00 PM EDT LIAN FUNG [facility] Confirmed PC OV 05/29/2024 02:00 PM PROSPER MEADOWS DO [facility] [address] [place] [address] Confirmed Medications What How Much [...] to receive it can visit one of [facility] vaccine clinics. There are many vaccine clinic locations within the [facility]. For locations and available times, please visit www.gettheshot.coronavirus.[place].gov/. It is important to note that some COVID mobile vaccine clinics are held outdoors and may be canceled in rainy or stormy conditions. To learn more about pediatric vaccinations (ages 5-11), we invite you to visit the [facility] webpage. https://www.Portal Solutionss.org/pages/5492-Hlqfr-Aumwqnfruso-Fhojtndbsm-Ltfpu-Awq stions.htmlTo learn more about the COVID-19 vaccine, we invite you to visit the CDC website for a list of frequently asked questions. https://www.cdc.gov/coronavirus/2019-ncov/vaccines/faq.html [facility] Patient Portal Access Instructions: Stay connected with your healthcare team and access your personal medical information anytime with the [facility] Patient Portal.If you would like a full copy of your medical records, please contact the [facility] Medical Records Department, Monday through Monday between 8a.m. and 4:30p.m. Please follow the directions below to access the portal: 1.Access the email account you provided upon registration to the hospital.2.Look for an invitation email from [facility].3.Open the email and access the invitation link: Accept Invitation to [facility]4.Fill in the required delaney to create your account. Sign into www.[employer] with your username and password that you [...] you will allow to register on the [facility] Patient Portal for access to your information. You can also access the [facility] Patient Portal on the [employer]. Simply click on "Health Records" under "[employer]" and then click on the [employer] logo. HOW TO SAFELY DISPOSE OF PRESCRIPTION [...] Call your local pharmacy or go to [email or web address] to find one close to you.3.Make use of household items: Use cat litter or old coffee grounds to dispose medications if other options arenot available. Mix your drugs with these household products, seal them in an airtight container andthrow it into the garbage. Call [facility]: [phone] to be sure your drugs can be [...] aware that I should contact my doctor. Patient/Forge Heater Signature: Date/Time: Relationship to Patient: Witness Name/Signature: Date/Time: [id number] Note Chief Complaint pain History of Present [...] None. Living situation: Home with assistance. 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 Safe place to go: Yes. Lives [...] Medication Administration Given 9s1 100 mL + hsqc912 480 mg, IV Piggyback. For: Metastatic renal [...] LIAN FUNG MD on 03/04/2024 05:[address] [id number] Summary of episode note LYNDSAY LOPEZ :1980 Visit Date:03/04/2024 Your Visit Summary Your Diagnosis Metastatic renal cell carcinoma. S/P Left cytoreductive nephrectomy 08/14/20. Final path - ccRCC withsarcomatoid features. Metastatic renal cell carcinoma. S/P Left cytoreductive nephrectomy 08/14/20. Final path - ccRCC withsarcomatoid features. 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 There are many vaccine clinic locations within the [facility]. For locations and available times, please visit www.gettheshot.coronavirus.[place].gov/. It is important to note that some COVID mobile vaccine clinics are held outdoors and may be canceled in rainy or stormy conditions. To learn more about pediatric vaccinations (ages 5-11), we invite you to visit the [facility] webpage. https://www.[facility].org/pages/1108-Amvin-Atgsxlqptuv-Xvzwqbwccp-Elkdg-Nub stions.htmlTo learn more about the COVID-19 vaccine, we invite you to visit the CDC website for a list of frequently asked questions. https://www.cdc.gov/coronavirus/2019-ncov/vaccines/faq.html [facility] Patient Portal Access Instructions: Stay connected with your healthcare team and access your personal medical information anytime with the [facility] Patient Portal.If you would like a full copy of your medical records, please contact the [facility] Medical Records Department, Monday through Monday between 8a.m. and 4:30p.m. Please follow the directions below to access the portal: 1.Access the email account you provided upon registration to the hospital.2.Look for an invitation email from [facility].3.Open the email and access the invitation link: Accept Invitation to [facility]4.Fill in the required delaney to create your [...] you will allow to register on the [facility] Patient Portal for access to your information. You can also access the [facility] Patient Portal on the [employer] julia. Simply click on "Health Records" under "HealthDaConnectSolutions" and then click on the [facility] logo. HOW TO SAFELY DISPOSE OF PRESCRIPTION [...] Call your local pharmacy or go to [email or web address] to find one close to you.3.Make use of household items: Use cat litter or old coffee grounds to dispose medications if other options arenot available. Mix your drugs with these household products, seal them in an airtight container andthrow it into the garbage. Call [facility]: [phone] to be sure your drugs can be [...] aware that I should contact my doctor. Patient/Forge Heater Signature: Date/Time: Relationship to Patient: Witness Name/Signature: Date/Time[id number] Summary of episode note LYNDSAY LOPEZ :1980 [...] StatusPC Nurse 02/28/2024 10:45 AM EST [facility] [address] [address] Confirmed INF/OSP Labwork 03/04/2024 12:15 [...] to receive it can visit one of [facility] vaccine clinics. There are many vaccine clinic locations within the [facility]. For locations and available times, please visit www.gettheshot.coronavirus.[place].gov/. It is important to note that some COVID mobile vaccine clinics are held outdoors and may be canceled in rainy or stormy conditions. To learn more about pediatric vaccinations (ages 5-11), we invite you to visit the [facility] webpage. https://www.[facility].org/pages/6061-Vdhph-Zcrnntbjetg-Ouptyndpwc-Hdlre-Bgw stions.htmlTo learn more about the COVID-19 vaccine, we invite you to visit the CDC website for a list of frequently asked questions. https://www.cdc.gov/coronavirus/2019-ncov/vaccines/faq.html [facility] Patient Portal Access Instructions: Stay connected with your healthcare team and access your personal medical information anytime with the [facility] Patient Portal.If you would like a full copy of your medical records, please contact the [facility] Medical Records Department, Monday through Monday between 8a.m. and 4:30p.m. Please follow the directions below to access the portal: 1.Access the email account you provided upon registration to the hospital.2.Look for an invitation email from [facility].3.Open the email and access the invitation link: Accept Invitation to [facility]4.Fill in the required delaney to create [...] you will allow to register on the [facility] Patient Portal for access to your information. You can also access the [facility] Patient Portal on the [employer]. Simply click on "Health Records" under "HealthData" [...] Call your local pharmacy or go to [email or web address] to find one close to you.3.Make use of household items: Use cat litter or old coffee grounds to dispose medications if other options arenot available. Mix your drugs with these household products, seal them in an airtight container andthrow it into the garbage. Call [facility]: [phone] to be sure your drugs can be [...] aware that I should contact my doctor. Patient/Forge Heater Signature: Date/Time: Relationship to Patient: Witness Name/Signature: Date/Time: [facility] [id number] Note. MICRO - Microbiology PROCEDURE: Culture Wound [...] Locations *1: This test was performed at: [facility], [address] [place] [address], [address] , [facility]12-12-2024 Hospital Discharge instructions Patient Education 01/25/2024 01:22:57 [...] Boil returns when you are at home [id number] [employer]. [address] [place] [address]. All rights reserved. This information is not intended as a substitute for professional medical care. Always follow yourhealthcare professional's instructions. Follow Up Care 01/25/2024 00:51:29 With:PROSPER MANJARREZ DO Address: [place] [phone] When:2-4 days [facility] 12-12-2024 Note Discharge Instructions Thank you for allowing [facility] to assist you with your healthcare needs. The following is importantdischarge information regarding your hospital visit. Diagnosis from Today's Visit Abscess What to Do Next Instructions from Your Care Team No qualifying data available. Post Acute Orders No qualifying data available. You Need to Schedule the Following Appointments Follow Up with PROSPER MANJARREZ DO When:Within 2-4 days Where:[place] [phone] Allergies penicillin Swelling Medications Please ask your [...] blood sodium or high potassium); porphyria, or rvjffpm-1-wbwnabwlh dehydrogenase (G6PD) deficiency; or if you use [...] may report side effects to FDA at 0-674-EQK-0808. What other drugs will affect sulfamethoxazole and [...] sulfamethoxazole and trimethoprim. This includes prescription and dpaw-ovi-sznusct medicines, vitamins, and herbal products. Not all [...] to ensure that the information provided by [employer]. ('Multum') is accurate, up-to-date, and complete, but no guarantee is made to that effect. Drug information contained herein may be time sensitive. FaceTags information has been compiled for use by healthcare practitioners and consumers in the [place] and therefore Face[employer] does not warrant that uses outside of the [place] are appropriate, unless specifically indicated otherwise. [employer] drug information does not endorse drugs, diagnose patients or recommend therapy. [employer] drug information isan informational resource designed to [...] effective or appropriate for any given patient. [employer] does not assume any responsibility for any aspect of healthcare administered with the aid of information FaceTags provides. The information contained herein is not intended to cover all possible uses, directions, precautions, warnings, drug interactions, allergic reactions, or adverse effects. If you have questions about the drugs you are taking, check with your doctor, nurse or pharmacist. Copyright 0297-8107 [employer]. Version: 13.. Revision Date: 09/15/2022. cephalexin (sef [...] may report side effects to FDA at 3-243-MAK-3532. What other drugs will affect cephalexin? Tell your doctor about all your other medicines, especially: metformin; or probenecid. This list is not complete. Other drugs may affect cephalexin, including prescription and zofp-dli-xeoppnl medicines, vitamins, and herbal products. Not all [...] to ensure that the information provided by [employer]. ('Multum') is accurate, up-to-date, and complete, but no guarantee is made to that effect. Drug information contained herein may be time sensitive. FaceTags information has been compiled for use by healthcare practitioners and consumers in the [place] and therefore Face[employer] does not warrant that uses outside of the [place] are appropriate, unless specifically indicated otherwise. [employer] drug information does not endorse drugs, diagnose patients or recommend therapy. [employer] drug information isan informational resource designed to [...] effective or appropriate for any given patient. [facility] does not assume any responsibility for any aspect of healthcare administered with the aid of information [facility] provides. The information contained herein is not intended to cover all possible uses, directions, precautions, warnings, drug interactions, allergic reactions, or adverse effects. If you have questions about the drugs you are taking, check with your doctor, nurse or pharmacist. Copyright 4627-6982 [employer]. Version: 01.13. Revision Date: 09/14/2022. Education Materials [...] Boil returns when you are at home [phone] [employer]. [address] [place] [address], [place] [address]. All rights reserved. This information is not intended as a substitute for professional medical care. Always follow yourhealthcare professional's instructions. Additional Information VACCINATE! IT SAVES LIVES! Members of the community who have not yet received the COVID-19 vaccine and would like to receive it can visit one of [facility] vaccine clinics. There are many vaccine clinic locations within the [facility]. For locations and available times, please visit www.gettheshot.coronavirus.[place].gov/. It is important to note that some COVID mobile vaccine clinics are held outdoors and may be canceled in rainy or stormy conditions. To learn more about pediatric vaccinations (ages 5-11), we invite you to visit the [facility] webpage. https://www.[facility].org/pages/0409-Loefy-Bvjoxwjofrw-Wxsyctsbnt-Yfkgt-Nrd stions.htmlTo learn more about the COVID-19 vaccine, we invite you to visit the CDC website for a list of frequently asked questions. https://www.cdc.gov/coronavirus/2019-ncov/vaccines/faq.html [facility] Patient Portal Access Instructions: Stay connected with your healthcare team and access your personal medical information anytime with the [facility] Patient Portal. If you would like a full copy of your medical records please contact the [facility] Medical Records Department Monday through Monday between 8a.m. and 4:30p.m. Please follow the directions below to access the portal: 1.Access the email account you provided upon registration to the [facility].2.Look for an invitation email from [facility].3.Open the email and access the invitation link: Accept Invitation to [facility]4.Fill in the required delaney to create your account. Sign into www.[email or web address] Media with your username and password that you [...] you will allow to register on the [facility] Patient Portal for access to your information. You can also access the [facility] Patient Portal on the [employer]. Simply click on "Health Records" under "HealthData" and then click on the [employer] logo. HOW TO SAFELY DISPOSE OF PRESCRIPTION [...] Call your local pharmacy or go to [email or web address] to find one close to you.3.Make use of household items: Use cat litter or old coffee grounds to dispose medications if other options arenot available. Mix your drugs with these household products, seal them in an airtight container andthrow it into the garbage. Call [facility]: [phone] to be sure your drugs can be [...] aware that I should contact my doctor. Patient/Forge Heater Signature: Date/Time: Relationship to Patient: Witness Name/Signature: Date/Time: [facility]12-06-2024 Note ORIGINAL EXAMINATION: CT OF THE [...] Sign Date: 01/19/2024 4:19:39 PM Ordering Provider: [facility]11-07-2024 Summary of episode note LYNDSAY LOPEZ :1980 Visit Date:12/21/2023 Your Visit Summary Your Diagnosis Metastatic renal cell carcinoma. S/P Left cytoreductive nephrectomy 08/14/20. Final path - ccRCC withsarcomatoid features. Metastatic renal cell carcinoma. S/P Left cytoreductive nephrectomy 08/14/20. Final path - ccRCC withsarcomatoid features. 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 Secondary malignant neoplasm of bone (disorder) Active Tests Performed .Auto Differential .Estimated Glomerular Filtration Rate .Neutro Absolute CBC CMP Cortisol Level Free T3 Free T4 LDH TSH Your Care Team Attending Physician - EZEQUIEL LEAL ELECTRICIAN OUTSIDE-APPARATUS REPAIR MECHANIC Primary Care Physician - PROSPER MANJARREZ DO [...] OV CHF 12/27/2023 10:45 AM [facility] CVC Confirmed PC Nurse Protime 12/27/2023 02:15 PM [facility] [address] [place] [address] Confirmed yyCT ABD and Pelvis w/o Contrast 01/15/2024 10:00 AM [facility] [phone] Confirmed yyCT Chest w/o Contrast 01/15/2024 10:30 AM [facility] [phone] Confirmed HEM ONC OV Follow Up w/Active Treatment 01/25/2024 10:00 AM BHAVIK SWAN MD [facility] Confirmed Medications What How [...] to receive it can visit one of [facility] vaccine clinics. There are many vaccine clinic locations within the [facility]. For locations and available times, please visit www.gettheshot.coronavirus.[place].gov/. It is important to note that some COVID mobile vaccine clinics are held outdoors and may be canceled in rainy or stormy conditions. To learn more about pediatric vaccinations (ages 5-11), we invite you to visit the [facility] webpage. https://www.[employer]s.org/pages/5217-Wpbta-Dlnwiytuzbc-Qsbxlhytus-Flgeb-Ykv stions.htmlTo learn more about the COVID-19 vaccine, we invite you to visit the CDC website for a list of frequently asked questions. https://www.cdc.gov/coronavirus/2019-ncov/vaccines/faq.html [facility] Patient Portal Access Instructions: Stay connected with your healthcare team and access your personal medical information anytime with the [employer] Patient Portal.If you would like a full copy of your medical records, please contact the [facility] Medical Records Department, Monday through Monday between 8a.m. and 4:30p.m. Please follow the directions below to access the portal: 1.Access the email account you provided upon registration to the hospital.2.Look for an invitation email from [facility].3.Open the email and access the invitation link: Accept Invitation to [facility]4.Fill in the required delaney to create your account. Sign into www.[employer] with your username and password that you [...] you will allow to register on the [employer] Patient Portal for access to your information. You can also access the [employer] Patient Portal on the [employer]. Simply click on "Health Records" under "HealthData" and then click on the [employer] logo. HOW TO SAFELY DISPOSE OF PRESCRIPTION [...] Call your local pharmacy or go to [email or web address] to find one close to you.3.Make use of household items: Use cat litter or old coffee grounds to dispose medications if other options arenot available. Mix your drugs with these household products, seal them in an airtight container andthrow it into the garbage. Call [facility]: [phone] to be sure your drugs can be [...] aware that I should contact my doctor. Patient/Forge Heater Signature: Date/Time: Relationship to Patient: Witness Name/Signature: Date/Time: [facility] [id number] NoteHNO ID: [id number] Author: YASIR BRADFORD APRN.WORKS MANAGER Service: ? Author Type: Nurse Specialist Type: [...] Dockery, MALOU Reyes, MARISA Pulido, and MIN[facility] History of Present illness Narrative* [...] and Rachell Sears MD documented [facility]24 NoteHNO ID: [id number] Author: ONESIMO RAMOS MD Service: ? Author [...] 2.9 08/2022 APTT 27 08/2022 Yasir Bradford APRN.WORKS MANAGER November 17, 2023 3:39 PM I have reviewed the above data. My impression is that Lyndsay Perez Jessica has PVR 5, RCC, no evidence of CTEPH. Will discuss at MDT. Onesimo Ramos [facility]10-04-2024 History of Present illness Narrative* Onesimo Ramos [...] 2.9 08/2022 APTT 27 08/2022 Yasir Bradford APRN.WORKS MANAGER November 17, 2023 3:39 PM I have reviewed the above data. My impression is that Lyndsay Lopez has PVR 5, RCC, no evidence of CTEPH. Will discuss at MDT. Onesimo Ramos MD documented in this encounterMet[facility]10-03-2024 Note Chief Complaint Palliative Care follow up [...] None. Living situation: Home with assistance. 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 Safe place to go: Yes. Lives [...] Fung in 4 weeks Medication Administration Given vgtj195 480 mg + 9s1 100 mL, IV [...] for for pain [facility] Unchanged senna (senna (sennosides) 8.6 mg oral tablet) 2 tab(s) by mouth Two (2) times a day as needed for as needed for constipation [facility] Unchanged spironolactone (Aldactone 25 mg oral tablet) 1 tab(s) by mouth Once a day Take with food Unchanged warfarin (warfarin 2 mg oral tablet) 1 tab(s) by mouth Once a day Unchanged warfarin (warfarin 5 mg oral tablet) 0.5 tab(s) by mouth Every Mon/Mon///Mon/Mon Unchanged warfarin (warfarin 5 mg oral tablet) 1 tab(s) by mouth Every Monday [facility] [address], [place] [phone] Digitally Signed by REILLY COLEMAN on 11/16/2023 01:[address] [facility] [id number] Summary of episode note LYNDSAY LOPEZ :1980 [...] Up 11/16/2023 01:30 PM EDT REILLY COLEMAN [facility] Confirmed PC Nurse Branden 11/29/2023 02:15 PM EDT [address] [address] Confirmed PC Wellness Annual 11/30/2023 03:30 PM EDT PROSPER MANJARREZ DO [address] [address] Confirmed CV OV CHF 12/06/2023 11:00 AM EDT [facility] CVC Confirmed HEM ONC OV Follow Up w/Active Treatment 12/14/2023 10:00 AM EDT BHAVIK TRIANA MD [facility] Confirmed Medications What How [...] to receive it can visit one of [facility] vaccine clinics. There are many vaccine clinic locations within the [facility]. For locations and available times, please visit www.gettheshot.coronavirus.[place].gov/. It is important to note that some COVID mobile vaccine clinics are held outdoors and may be canceled in rainy or stormy conditions. To learn more about pediatric vaccinations (ages 5-11), we invite you to visit the [facility] webpage. https://www.[employer]al [employer]s.org/pages/3224-Mbpzo-Stizgmwiaag-Uunqnqrywo-Uidst-Bpz stions.htmlTo learn more about the COVID-19 vaccine, we invite you to visit the CDC website for a list of frequently asked questions. https://www.cdc.gov/coronavirus/2019-ncov/vaccines/faq.html [facility] Patient Portal Access Instructions: Stay connected with your healthcare team and access your personal medical information anytime with the [employer] Patient Portal.If you would like a full copy of your medical records, please contact the [facility] Medical Records Department, Monday through Monday between 8a.m. and 4:30p.m. Please follow the directions below to access the portal: 1.Access the email account you provided upon registration to the hospital.2.Look for an invitation email from [facility].3.Open the email and access the invitation link: Accept Invitation to [facility]4.Fill in the required delaney to create your account. Sign into www.[employer] with your username and password that you [...] you will allow to register on the [facility] Patient Portal for access to your information. You can also access the [facility] Patient Portal on the [employer]. Simply click on "Health Records" under "HealthData" and then click on the [employer] logo. HOW TO SAFELY DISPOSE OF PRESCRIPTION [...] Call your local pharmacy or go to [email or web address] to find one close to you.3.Make use of household items: Use cat litter or old coffee grounds to dispose medications if other options arenot available. Mix your drugs with these household products, seal them in an airtight container andthrow it into the garbage. Call [facility]: [phone] to be sure your drugs can be [...] aware that I should contact my doctor. Patient/Forge Heater Signature: Date/Time: Relationship to Patient: Witness Name/Signature: Date/Time: [facility] [id number] Telephone encounter Note* Telephone Encounter - Shyanne Dockery - 11/16/2023 11:18 AM EDT Images from the original note were not included. Referring: Images on the way [facility]10-03-2024 Miscellaneous Notes* Telephone Encounter - Shyanne Dockery - 11/16/2023 11:18 AM EDT Images from the original note were not included. Referring: Images on the way documented in this encounterMet[facility]09-17-2024 Hospital Discharge instructions Patient Education 10/31/2023 11:01:33 [...] Care 10/20/2023 13:45:49 With:NOAH SEPULVEDA MD Address: [address] [place] [address] [address] [place] [address]- [phone] When:11/17/2023 10:00:00 [facility] 09-17-2024 Summary of episode note Discharge Instructions Thank you for allowing [facility] to assist you with your healthcare needs. The following is importantdischarge information regarding your hospital visit. Your Care Team PROSPER MANJARREZ DO What to do next Scheduled Follow-Up Appointments Appointment Type When With Where Contact Information StatusPC Nurse Protime 11/01/2023 02:15 PM EDT [address] [address] Confirmed INF/OSP Labwork 11/16/2023 09:45 [...] [facility] Clinic 11/17/2023 10:00 AM EDT [facility] Confirmed PC Wellness Annual 11/30/2023 03:30 PM EDT PROSPER MANJARREZ DO [facility] [address] [place] [address] Confirmed Follow Up Appointments Follow Up with NOAH SEPULVEDA MD When:11/17/2023 10:00 AM EDT Where:[address] [facility] [place] [address]- [phone] The Following Treatments Have Been Ordered for [...] Refills: 3 Take with food [facility] at [facility]/pharm[facility] Changed furosemide (Lasix 40 mg oral tablet) 1 tab(s) by mouth Two (2) times a day Duration: 30 Days Pickup at [facility]/pharmacy #4607 Unchanged amiodarone (amiodarone 200 mg oral tablet) [...] tab(s) by mouth Every Monday Pharmacy Information [facility]/pharmacy #4605: [address], [place] [phone] Please take this list to your next [...] You should not use spironolactone if you Stacy's disease, high levels of potassium in your [...] allergic to it, or if you have: Stacy's disease (an adrenal gland disorder); high levels [...] may report side effects to FDA at 1-509-AMM-7194. What other drugs will affect spironolactone? Using [...] drugs may affect spironolactone, including prescription and uiei-dbm-zdnpisf medicines, vitamins, and herbal products. Not all [...] to ensure that the information provided by [employer]. ('Multum') is accurate, up-to-date, and complete, but no guarantee is made to that effect. Drug information contained herein may be time sensitive. [employer] information has been compiled for use by healthcare practitioners and consumers in the [place] and therefore [employer] does not warrant that uses outside of the [place] are appropriate, unless specifically indicated otherwise. [employer] drug information does not endorse drugs, diagnose patients or recommend therapy. [employer] drug information isan informational resource designed to [...] effective or appropriate for any given patient. [employer] does not assume any responsibility for any aspect of healthcare administered with the aid of information [employer] provides. The information contained herein is not intended to cover all possible uses, directions, precautions, warnings, drug interactions, allergic reactions, or adverse effects. If you have questions about the drugs you are taking, check with your doctor, nurse or pharmacist. Copyright 2206-8893 [employer]. Version: .. Revision Date: 04/27/2019. Education Materials [...] to receive it can visit one of [facility] vaccine clinics. There are many vaccine clinic locations within the [facility]. For locations and available times, please visit https://gettheshot.coronavirus.[place].gov/. It is important to note that some COVID mobile vaccine clinics are held outdoors and may be canceled in rainy or stormy conditions. To learn more about pediatric vaccinations (ages 5-11), we invite you to visit the [facility] webpage. https://www.Portal Solutionss.org/pages/5472-Nffpb-Kazggmnfsrg-Rznsbvzfko-Ymldp-Nmb stions.htmlTo learn more about the COVID-19 vaccine, we invite you to visit the CDC website for a list of frequently asked questions.https://www.cdc.gov/coronavirus/2019-ncov/vaccines/faq.html [facility] Patient Portal Access Instructions: Stay connected with your healthcare team and access your personal medical information anytime with the [facility] Patient Portal. Please follow the directions below to create your [facility] account: 1.Access the email account you provided upon registration to the hospital/physician office.2.Look for an invitation email from [facility].3.Open the email and access the invitation link: AcceptInvitation to [facility].4.Fill in the required delaney to create your account. To access your account, visit [facility]/Intepat IP ServicesOneChart. Click the blue button labeled "Access Patient [...] who you will allowto register on the [facility] Patient Portal for access to your information. You can also access the [facility] OneChart Patient Portal on the [facility] julia. Simply click on "Patient Portal" and then log into your account. If you would like to receive a full copy of your medical records, please contact the [facility] Medical Records Department by calling [phone], Monday through Monday between 8 a.m. and [...] Call your local pharmacy or go to [email or web address] to find one close to you.3.Make use of household items: Use cat litter or old coffee grounds to dispose medications if other options arenot available. Mix your drugs with these household products, seal them in an airtight container andthrow it into the garbage. Call [facility]: [phone] to be sure your drugs can be [...] aware that I should contact my doctor. Patient/Forge Heater Signature: Date/Time: Relationship to Patient: Witness Name/Signature: Date/Time: [facility]pm[facility]qh45-20-5907 Hospital Discharge instructions Patient Education 10/26/2023 14:19:50 [...] Boil returns when you are at home 2190-2716 The [employer]. [address] [place] [address]. All rights reserved. This information is not intended as a substitute for professional medical care. Always follow yourhealthcare professional's instructions. Follow Up Care 10/26/2023 13:49:52 With:PROSPER MANJARREZ DO Address: [address] [facility] [place] [address] [phone] When:2-4 days [facility] 09-12-2024 Note Discharge Instructions Thank you for allowing [facility] to assist you with your healthcare needs. The following is importantdischarge information regarding your hospital visit. Diagnosis from Today's Visit Abscess What to Do Next Instructions from Your Care Team No qualifying data available. Post Acute Orders No qualifying data available. You Need to Schedule the Following Appointments Follow Up with PROSPER MANJARREZ DO When:Within 2-4 days Where:[address] [facility] [place] [address]- [phone] Allergies penicillin Swelling Medications Please ask your primary doctor or pharmacist before taking any other medication not listed, including over the counter drugs, herbal medications, vitamins and or supplements as they may interact withyour home medications. What How Much When Why Instructions Last Dose New acetaminophen-hydrocodone (Visalia 325- 5 mg oral tablet) 1 tab(s) [...] Boil returns when you are at home 6580-3106 [employer]. [address] [place] [address]. All rights reserved. This information is not intended as a substitute for professional medical care. Always follow yourhealthcare professional's instructions. Additional Information VACCINATE! IT SAVES LIVES! Members of the community who have not yet received the COVID-19 vaccine and would like to receive it can visit one of [facility] vaccine clinics. There are many vaccine clinic locations within the [facility]. For locations and available times, please visit www.gettheshot.coronavirus.[place].gov/. It is important to note that some COVID mobile vaccine clinics are held outdoors and may be canceled in rainy or stormy conditions. To learn more about pediatric vaccinations (ages 5-11), we invite you to visit the [facility] webpage. https://www.[facility].org/pages/8769-Djwdj-Genmwxisebg-Cncprupydh-Dzcvs-Dfz stions.htmlTo learn more about the COVID-19 vaccine, we invite you to visit the CDC website for a list of frequently asked questions. https://www.cdc.gov/coronavirus/2019-ncov/vaccines/faq.html [facility] Patient Portal Access Instructions: Stay connected with your healthcare team and access your personal medical information anytime with the [facility] Patient Portal. If you would like a full copy of your medical records please contact the [facility] Medical Records Department Monday through Monday between 8a.m. and 4:30p.m. Please follow the directions below to access the portal: 1.Access the email account you provided upon registration to the hospital.2.Look for an invitation email from [facility].3.Open the email and access the invitation link: Accept Invitation to DiogoMeteor4.Fill in the required delaney to create your account. Sign into www.[facility] with your username and password that you [...] you will allow to register on the [facility] Patient Portal for access to your information. You can also access the [facility] Patient Portal on the [employer] julia. Simply click on "Health Records" under "HealthDaConnectSolutions" and then click on the Intepat IP Services logo. HOW TO SAFELY DISPOSE OF PRESCRIPTION [...] Call your local pharmacy or go to [email or web address] to find one close to you.3.Make use of household items: Use cat litter or old coffee grounds to dispose medications if other options arenot available. Mix your drugs with these household products, seal them in an airtight container andthrow it into the garbage. Call [facility]: [phone] to be sure your drugs can be [...] aware that I should contact my doctor. Patient/Forge Heater Signature: Date/Time: Relationship to Patient: Witness Name/Signature: Date/Time: [facility]24 Summary of episode note LYNDSAY LOPEZ [...] StatusPC Nurse Protime 11/01/2023 02:15 PM EDT [address] [phone] Confirmed HEM ONC OV Follow Up w/Active Treatment 11/16/2023 10:30 AM EDT EZEQUIEL LEAL ELECTRICIAN OUTSIDE-APPARATUS REPAIR MECHANIC [facility] Confirmed PALL OV Follow Up 11/16/2023 01:30 PM EDT REILLY COLEMAN ELECTRICIAN OUTSIDE-APPARATUS REPAIR MECHANIC [facility] Confirmed CV OV CHF [facility] 11/17/2023 10:00 AM EDT [facility] [place] Confirmed PC Wellness Annual 11/30/2023 03:30 PM EDT PROSPER MANJARREZ DO [address] [phone] Confirmed Medications What How Much When Why [...] to receive it can visit one of [facility] vaccine clinics. There are many vaccine clinic locations within the [facility]. For locations and available times, please visit www.gettheshot.coronavirus.[place].gov/. It is important to note that some COVID mobile vaccine clinics are held outdoors and may be canceled in rainy or stormy conditions. To learn more about pediatric vaccinations (ages 5-11), we invite you to visit the [facility] webpage. https://www.Portal Solutionss.org/pages/3501-Naitm-Sxrjmtryitk-Orliuedwne-Zggdr-Wfa stions.htmlTo learn more about the COVID-19 vaccine, we invite you to visit the CDC website for a list of frequently asked questions. https://www.cdc.gov/coronavirus/2019-ncov/vaccines/faq.html [facility] Patient Portal Access Instructions: Stay connected with your healthcare team and access your personal medical information anytime with the [facility] Patient Portal.If you would like a full copy of your medical records, please contact the [facility] Medical Records Department, Monday through Monday between 8a.m. and 4:30p.m. Please follow the directions below to access the portal: 1.Access the email account you provided upon registration to the [facility].2.Look for an invitation email from [facility].3.Open the email and access the invitation link: Accept Invitation to [facility]eor4.Fill in the required delaney to create your account. Sign into www.[facility] with your username and password that you [...] you will allow to register on the [facility] Patient Portal for access to your information. You can also access the [facility] Patient Portal on the [employer]. Simply click on "Health Records" under "HealthDaConnectSolutions" and then click on the Intepat IP Services logo. HOW TO SAFELY DISPOSE OF PRESCRIPTION [...] Call your local pharmacy or go to [email or web address] to find one close to you.3.Make use of household items: Use cat litter or old coffee grounds to dispose medications if other options arenot available. Mix your drugs with these household products, seal them in an airtight container andthrow it into the garbage. Call [facility]: [phone] to be sure your drugs can be [...] aware that I should contact my doctor. Patient/Forge Heater Signature: Date/Time: Relationship to Patient: Witness Name/Signature: Date/Time: [facility] [id number] Note ORIGINAL EXAMINATION: CT OF THE CHEST [...] Sign Date: 10/12/2023 11:44:32 AM Ordering Provider: [facility]08-29-2024 Note ORIGINAL EXAMINATION: CT OF THE ABDOMEN [...] Sign Date: 10/12/2023 11:36:14 AM Ordering Provider: [facility]08-12-2024 Discharge summary Date of Service 09/25/23 Discharge [...] qAM, # 30 tab(s), 1 Refill(s), Pharmacy: [facility]/pharmacy #[id number], 172.7, cm, 09/18/23 2:04:00 EDT, Height, kg, 09/23/23 8:43:00 EDT, Dosing Weight Ordered: Lasix 40 mg oral tablet,Dose : 40 mg = 1 tab(s), Oral, Daily, # 30 tab(s), 1 Refill(s), Pharmacy: [facility]/pharmacy #[id number], 172.7, cm, 09/18/23 2:04:00 EDT, Height, kg, 09/23/23 8:43:00 EDT, Dosing Weight Discontinued: Telemetry Monitoring,09/18/23 1:46:56 EDT, Constant order Other status: warfarin,Start: 09/24/23 8:00:00 EDT, Dose = 2.5 mg, = 1 tab(s), Oral, qDay, 0, 09/24/23 8:00:00 EDT(Suspend) Ordered: warfarin 5 mg oral tablet,Dose : 2.5 mg = 0.5 tab(s), Oral, q48h, as directed, # 7.5 tab(s), 11 Refill(s), Pharmacy: [facility]/pharmacy #[id number], 172.7, cm, 09/18/23 2:04:00 EDT, Height, kg, 248:43:00 EDT, Dosing Weight Hospital Course 43-year-old male with a history of metastatic renal cell carcinoma status post left-sided nephrectomy in 2020, HFpEF, obesity, COPD, PE on Coumadin, smoker and alcohol abuse presented due to bilateral lower extremity swelling, orthopnea, 40 pound weight gain, increased swelling in scrotum. He was admitted to [facility] for management heart failure then [facility]. He was started on lasix [...] Physician - Ordered -- 09/21/23 8:12:00 EDT, CORYB REESE MD, Routine, solitary kidney, maria esther, [...] lb BP: 154/97 Reading physician: NOAH SEPULVEDA Rubber Tubing Backer: Pattie Long RVT, [facility] Ordering physician: MURALI MAGANA History: Tricuspid regurgitation. [...] LIAN BERNARD MD When:In 3 weeks [facility] [facility] [address] [address] [phone] Follow Up with ANDI STINSON MD, Internal Medicine When:In 3 weeks Where:[address] [facility] [place] [address]- Follow Up with NOAH SEPULVEDA MD When:In 2 weeks Where:[address] [place] [address]- [phone] Follow Up with EMILIO LOPEZ MD When:In 2 weeks Where:[address] [place] [address]- [phone] Follow Up with MERLY ARAIZA MD When:In 2 weeks Where:[address] [place] [address]- Follow Up with PROSPER MANJARREZ DO When:Within 1-2 days Where:[address] [facility] [place] [address]- Additional Information: Please call the office to [...] Spent 50min [1] Echocardiogram, Adult - CV; [place] 09/15/2023 13:58 EDT Digitally Signed by PRISCILLA BULL MD on 09/25/2023 06:[address] [facility] [id number] Cardiology Progress note Date of Service 09/25/2023 [...] noted to have a recent admission at [facility] for cellulitis. Heart failure cardiology was [...] patient had an episode of presyncope at [facility]. Subjective Denies chest pain, worsening shortness [...] mL, Inhalation, BIDRT fluticasone nasal 0.05 mg/inh Almond 100 mcg 2 spray(s), Nostril, each, BID [...] - ipratropium 2.5 mg-0.5 mg/3 mL Inhal Seajl UD 3 mL, Inhalation, q4hRT benzonatate 100 [...] tab(s), Oral, BID sodium chloride nasal 0.65% Almond 2 spray(s), Nostril, each, q2h Lab Results [...] RA cavity concerning for thrombus [transferred to [place] had a clot removal], #Hx of PE [...] CLIFF LARSEN MD on 09/25/2023 05:[address] [facility] [id number] Hospital Discharge instructions Patient Education 09/25/2023 14:47:31 Heart Failure, Diagnosis, Ofdj-yr-Ipoe Heart Failure, Diagnosis Heart failure means that [...] 11/08/2008 Document Revised: 04/19/2019 Document Reviewed: 04/19/2019 [employer] Patient Education 2020 [employer]. Follow Up Care 09/17/2023 12:01:06 With:LIAN BERNARD MD Address: [address] [place] [address] [address] [place] [address]- [phone] When:Within 3 Week(s) With:ANDI STINSON MD, Internal Medicine Address: [address] [facility] [place], [place] [phone]- When:Within 3 Week(s) With:NOAH SEPULVEDA MD Address: [address] [place] [address] [address] [facility] [place] [address] [phone] When:Within 2 Week(s) With:EMILIO LOPEZ MD Address: [address] [place] [address] [address] [place] [address] [phone] When:Within 2 Week(s) With:MERLY ARAIZA MD Address: [address] [facility] [address] [facility] [place] [address]- When:Within 2 Week(s) With:PROSPER MANJARREZ DO Address: [address] [place] [address]- When:1-2 days Comments:Please call the office to schedule a hospital follow-up appointment. [facility] 08-12-2024 Note Discharge Instructions Thank you for allowing [facility] to assist you with your healthcare needs. [...] w/ Contrast 3 10/12/2023 10:30 AM EDT [facility] [phone] Confirmed yyCT Chest w/ Contrast 3 10/12/2023 11:00 AM EDT [facility] [phone] Confirmed INF Labwork 10/19/2023 12:15 PM EDT Infusion Therapy Confirmed PALL OV Follow Up 10/19/2023 01:00 PM EDT LIAN FUNG [facility] Confirmed HEM ONC OV Follow Up w/Active Treatment 10/19/2023 01:30 PM EDT BHAVIK TRIANA MD [facility] Confirmed INF Chemo: Infusion 60 min (1 hour) 10/19/2023 02:00 PM EDT Infusion Therapy Confirmed PC Wellness Annual 11/30/2023 03:30 PM EDT PROSPER MANJARREZ DO [facility] [address] [place] [address] Confirmed Follow Up Appointments Follow Up with LIAN BERNARD MD When:In 3 weeks Where:[address] [facility] [address] [place] [address] [phone] Follow Up with ANDI STINSON MD, Internal Medicine When:In 3 weeks Where:[address] [facility] [place] [address]- Follow Up with NOAH SEPULVEDA MD When:In 2 weeks Where:[address] [facility] [address] [place] [phone] Follow Up with EMILIO LOPEZ MD When:In 2 weeks Where:[address] [facility] [address] [place] [address] [phone] Follow Up with MERLY ARAIZA MD When:In 2 weeks Where:[address] [facility] [address] [place] [address]- Follow Up with PROSPER MANJARREZ DO When:Within 1-2 days Where:[address] [facility] [place] [address]- Additional Information: Please call the [...] Duration: 30 Days Refills: 1 Pickup at [facility]/pharmacy #[id number] Changed warfarin (warfarin 5 mg oral tablet) 0.5 tab(s) by mouth Every 48 hours Duration: 30 Days as directed Pickup at [facility]/pharmacy #[id number] Unchanged amiodarone (amiodarone 200 mg oral [...] Two (2) times a day Pharmacy Information [facility]/pharmacy #[id number]: [address] [place], [place] [phone] What How Much When Why Comments Stop [...] wireless accessories such as remote control, or BlueTiger Pistoloth devices. Do not reuse a needle, syringe [...] blood pressure, such as diet pills or ubhky-zxp-ywpf medicine. What are the possible side effects [...] may report side effects to FDA at 7-128-AEW-6211. What other drugs will affect furosemide? Sometimes [...] drugs may affect furosemide, including prescription and txop-rqh-taukoih medicines, vitamins, and herbal products. Not all [...] to ensure that the information provided by [employer]. ('Multum') is accurate, up-to-date, and complete, but no guarantee is made to that effect. Drug information contained herein may be time sensitive. FaceTags information has been compiled for use by healthcare practitioners and consumers in the [place] and therefore FaceTags does not warrant that uses outside of the [place] are appropriate, unless specifically indicated otherwise. [employer] drug information does not endorse drugs, diagnose patients or recommend therapy. [employer] drug information isan informational resource designed to [...] effective or appropriate for any given patient. FaceTags does not assume any responsibility for any aspect of healthcare administered with the aid of information FaceTags provides. The information contained herein is not intended to cover all possible uses, directions, precautions, warnings, drug interactions, allergic reactions, or adverse effects. If you have questions about the drugs you are taking, check with your doctor, nurse or pharmacist. Copyright [employer]. Version: 20.. Revision Date: 07/25/2023. Education Materials [...] 11/08/2008 Document Revised: 04/19/2019 Document Reviewed: 04/19/2019 ElseCavium Patient Education 2020 [employer]. Additional Information VACCINATE! IT SAVES LIVES! Members of the community who have not yet received the COVID-19 vaccine and would like to receive it can visit one of [facility] vaccine clinics. There are many vaccine clinic locations within the [facility]. For locations and available times, please visit https://gettheshot.coronavirus.[place].gov/. It is important to note that some COVID mobile vaccine clinics are held outdoors and may be canceled in rainy or stormy conditions. To learn more about pediatric vaccinations (ages 5-11), we invite you to visit the [facility] webpage. https://www.[facility].org/pages/6106-Ctmgh-Clvlkotcwzz-Snkphgvkpz-Konob-Pxh stions.htmlTo learn more about the COVID-19 vaccine, we invite you to visit the CDC website for a list of frequently asked questions.https://www.cdc.gov/coronavirus/2019-ncov/vaccines/faq.html [facility] Patient Portal Access Instructions: Stay connected with your healthcare team and access your personal medical information anytime with the [facility] Patient Portal. Please follow the directions below to create your [facility] account: 1.Access the email account you provided upon registration to the hospital/physician office.2.Look for an invitation email from [facility].3.Open the email and access the invitation link: AcceptInvitation to [facility].4.Fill in the required delaney to create your account. To access your account, visit [email or web address]. Click the blue button labeled "Access Patient [...] who you will allowto register on the [facility] Patient Portal for access to your information. You can also access the [facility] Portable ScoresChart Patient Portal on the [facility] [place] julia. Simply click on "Patient Portal" and then log into your account. If you would like to receive a full copy of your medical records, please contact the [facility] Medical Records Department by calling [phone], Monday through Monday between 8 a.m. and [...] Call your local pharmacy or go to [email or web address] to find one close to you.3.Make use of household items: Use cat litter or old coffee grounds to dispose medications if other options arenot available. Mix your drugs with these household products, seal them in an airtight container andthrow it into the garbage. Call [facility]: [phone] to be sure your drugs can be [...] Signatures Patient Education Materials Heart Failure, Diagnosis, Djsh-zp-Bgkq Medication Leaflets furosemide (oral/injection) My discharge plan and instructions have been reviewed and explained to me and IJESSICA DAVID D understand my current condition and have read and understand these discharge instructions. I have received a written copy of the plan/instructions. If I have questions, I am aware that I should contact my doctor. Patient/Forge Heater Signature: Date/Time: Relationship to Patient: Witness Name/Signature: Date/Time: [facility] [id number] Nephrology Progress note Date of Service September [...] mL, Inhalation, BIDRT fluticasone nasal 0.05 mg/inh Almond 100 mcg 2 spray(s), Nostril, each, BID [...] tab(s), Oral, BID sodium chloride nasal 0.65% Almond 2 spray(s), Nostril, each, q2h Lab Results [...] ABIGAIL MORRIS MD on 09/25/2023 10:[address] [facility] CenterYevucjsy25-00-9124 Heart failure Consult note Date of Service 09/25/23 Reason for Consultation CHF/pulmonary hypertension management Referring Physician General Cardiology History of Present Illness 43-year-old male with past medical history of paroxysmal atrial fibrillation/atrial flutter on amiodarone and Eliquis, history of BONNIE in July 2022 showing multiple irregular mass in the RA concerningfor thrombus for which patient was transferred to [facility] for clot removal and EKOS, mild n onobstructive CAD, history of alcohol abuse, history of tobacco abuse, history of metastatic RCC status post left-sided nephrectomy on radiation and chemotherapy, T11 vertebral body fracture, AKHIL noton CPAP, COPD, and morbid obesity presented to the emergency department at 09/12/2023 for complaintsof shortness of breath. Patient was admitted to [facility] for further management. Patient was then transferred to [facility] on 09/18/2023 for further management. Cardiology team [...] RA cavity concerning for thrombus [transferred to [place] had a clot removal], #Hx of PE [...] Outpatient will consider riociguat and evaluation by [facility] pulmonary hypertension team for possible pulmonary artery [...] II, MD PGY- Cardiovascular Disease Fellow Pager: [phone] Problem List/Past Medical History Ongoing Alcohol abuse [...] has received contrast, 1 EA, Miscellaneous, Unscheduled Visalia 325- 5 mg oral tablet, 1 tab(s), Oral, q4h, PRN Visalia 325-10 mg oral tablet, 1 tab(s), Oral, [...] None. Living situation: Home with assistance. 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 Safe place to go: Yes. Lives [...] PM Digitally Signed by NOAH SEPULVEDA MD [facility] [id number] Note ORIGINAL EXAMINATION: ONE XRAY VIEW OF [...] Date: 09/25/2023 8:54:32 AM Ordering Provider: RACHELL MELGARSt. Mary'S Medical [id number] Cardiology Progress note Date of Service Chief [...] tab(s), Oral, qAM fluticasone nasal 0.05 mg/inh Almond 100 mcg 2 spray(s), Nostril, each, BID [...] tab(s), Oral, BID sodium chloride nasal 0.65% Almond 2 spray(s), Nostril, each, q2h Lab Results [...] noted to have a recent admission at [facility] for cellulitis. Heart failure cardiology was [...] patient had an episode of presyncope at [facility]. Recommendation: Discontinue empagliflozin (scrotal cellulitis), patient [...] riociguat Discussed with Dr. Felisha Medeiros MD [employer] Messenger julia or Pager [phone] Digitally Signed by FER MEDEIROS MD on 09/24/2023 11:[address] [facility] [id number] Pulmonary Consult note Date of Service 09/24/2023 [...] transit and he was subsequently transferred to [facility] for evaluation of thrombectomy. The patient did [...] has received contrast, 1 EA, Miscellaneous, Unscheduled Visalia 325- 5 mg oral tablet, 1 tab(s), Oral, q4h, PRN Visalia 325-10 mg oral tablet, 1 tab(s), Oral, [...] None. Living situation: Home with assistance. 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 Safe place to go: Yes. Lives [...] EMILIO LOPEZ MD on 09/24/2023 08:[address] [facility] [id number] Note Date of Service 09/24/23 Subjective 43-year-old male with a history of metastatic renal cell carcinoma status post left-sided nephrectomy in 2020, HFpEF, obesity, COPD, PE on Coumadin, smoker and alcohol abuse presented due to bilateral lower extremity swelling, orthopnea, 40 pound weight gain, increased swelling in scrotum. He was admitted to [facility] for management heart failure then transferred to [facility] for evaluation by ca ridology service. [...] mL, Inhalation, BIDRT fluticasone nasal 0.05 mg/inh Almond 100 mcg 2 spray(s), Nostril, each, BID [...] tab(s), Oral, BID sodium chloride nasal 0.65% Almond 2 spray(s), Nostril, each, q2h Lab Results [...] PRISCILLA BULL MD on 09/24/2023 07:[address] [facility] [id number] Cardiology Progress note Date of Service Chief [...] tab(s), Oral, qAM fluticasone nasal 0.05 mg/inh Almond 100 mcg 2 spray(s), Nostril, each, BID [...] tab(s), Oral, BID sodium chloride nasal 0.65% Almond 2 spray(s), Nostril, each, q2h Lab Results [...] noted to have a recent admission at [facility] for cellulitis. Heart failure cardiology was [...] patient had an episode of presyncope at [facility]. Recommendation: Discontinue empagliflozin (scrotal cellulitis), patient [...] riociguat Discussed with Dr. Felisha Medeiros MD [employer] julia or Pager [phone] Digitally Signed by FER MEDEIROS MD on 09/24/2023 11:[address] [facility] [id number] Nephrology Progress note Subjective Seen and examined [...] tab(s), Oral, qAM fluticasone nasal 0.05 mg/inh Almond 100 mcg 2 spray(s), Nostril, each, BID [...] tab(s), Oral, BID sodium chloride nasal 0.65% Almond 2 spray(s), Nostril, each, q2h Lab Results [...] ANDI STINSON MD on 09/24/2023 11:[address] [facility] [id number] Note Date of Service 09/23/23 Subjective 43-year-old male with a history of metastatic renal cell carcinoma status post left-sided nephrectomy in 2020, HFpEF, obesity, COPD, PE on Coumadin, smoker and alcohol abuse presented due to bilateral lower extremity swelling, orthopnea, 40 pound weight gain, increased swelling in scrotum. He was admitted to [facility] for management heart failure then transferred to [facility] for evaluation by caridology service. He [...] tab(s), Oral, qAM fluticasone nasal 0.05 mg/inh Almond 100 mcg 2 spray(s), Nostril, each, BID [...] tab(s), Oral, BID sodium chloride nasal 0.65% Almond 2 spray(s), Nostril, each, q2h Lab Results [...] PRISCILLA BULL MD on 09/23/2023 03:[address] [facility] [id number] Nephrology Progress note Subjective Patient seen and [...] tab(s), Oral, qAM fluticasone nasal 0.05 mg/inh Almond 100 mcg 2 spray(s), Nostril, each, BID [...] tab(s), Oral, BID sodium chloride nasal 0.65% Almond 2 spray(s), Nostril, each, q2h Lab Results [...] ANDI STINSON MD on 09/23/2023 12:[address] [facility] [id number] Cardiology Progress note Date of Service 09/23/2023 [...] - ipratropium 2.5 mg-0.5 mg/3 mL Inhal Esjal UD 3 mL, Inhalation, QIDRT amiodarone 200 mg tablet 200 mg 1 tab(s), Oral, qDay budesonide 0.25 mg/2 mL Susp UD 0.25 mg 2 mL, Inhalation, BIDRT empagliflozin 10 mg tablet 10 mg 1 tab(s), Oral, qAM fluticasone nasal 0.05 mg/inh Almond 100 mcg 2 spray(s), Nostril, each, BID [...] tab(s), Oral, BID sodium chloride nasal 0.65% Almond 2 spray(s), Nostril, each, q2h Lab Results [...] (one day only), Blood, Once, Preferred Lab: [facility], Stop date 09/24/23 5:00:00 EDT N-Terminal proBNP(BNP), 09/24/23 5:00:00 EDT, Next AM Draw (one day only), Blood, Once, Preferred Lab: [facility], Stop date 09/24/23 5:00:00 EDT IMPRESSON: 1. Acute HFpEF. Has fluid overload CTA negative for PE Elevated proBNP [2067] Moderate TR 2. Hx of atrial flutter [07/2022, on amiodarone, lopressor & Coumadin and for PE], BONNIE on 07/2022 showing multiple irregular masses in the RA cavity concerning for thrombus [transferred to [place] had a clot removal], Hx of PE [right PE] with acute clot burden status post EKOS [on Coumadin] 3. Hx of RCC, metastatic status post left nephrectomy 4. ARF stable Off diuretic per renal service PLAN: See orders Digitally Signed by MERLY PATEL MD on 09/23/2023 10:[address] [facility] [id number] Note Date of Service 09/22/23 Subjective 43-year-old male with a history of metastatic renal cell carcinoma status post left-sided nephrectomy in 2020, HFpEF, obesity, COPD, PE on Coumadin, smoker and alcohol abuse presented due to bilateral lower extremity swelling, orthopnea, 40 pound weight gain, increased swelling in scrotum. He was admitted to [facility] for management heart failure then transferred to [facility] for evaluation by ca ridology service. [...] mL, Inhalation, BIDRT fluticasone nasal 0.05 mg/inh Almond 100 mcg 2 spray(s), Nostril, each, BID [...] tab(s), Oral, BID sodium chloride nasal 0.65% Almond 2 spray(s), Nostril, each, q2h Lab Results [...] PRISCILLA BULL MD on 09/22/2023 03:[address] [facility] [id number] Urology Progress note Date of Service 09/21/2023 [...] embolism 08/05 status post thrombectomy at the [facility] patient usually on long-term anticoagulation with Coumadin. [...] (Nicoderm Patch REMOVAL), 1 EA, Miscellaneous, q24h Visalia 325- 5 mg oral tablet, 1 tab(s), Oral, q4h, PRN Visalia 325-10 mg oral tablet, 1 tab(s), Oral, [...] None. Living situation: Home with assistance. 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 Safe place to go: Yes. Lives [...] LIAN BERNARD MD on 09/21/2023 04:[address] [facility] [id number] Consult note Date of Service September 21, [...] (Nicoderm Patch REMOVAL), 1 EA, Miscellaneous, q24h Visalia 325- 5 mg oral tablet, 1 tab(s), Oral, q4h, PRN Visalia 325-10 mg oral tablet, 1 tab(s), Oral, [...] 11 refills triamcinolone 0.1% topical cream, 1 jluia, Topical, BID warfarin 5 mg oral tablet [...] None. Living situation: Home with assistance. 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 Safe place to go: Yes. Lives [...] ANDI STINSON MD on 09/21/2023 11:[address] [facility] [id number] Note ORIGINAL EXAMINATION: CTA OF THE CHEST [...] SYSTEM PROVIDED HISTORY: Reason for Exam: r/o AK, Hx of large PE FINDINGS: T11 compression [...] Sign Date: 09/19/2023 3:34:51 PM Ordering Provider: [facility]08-05-2024 Cardiology Consult note Date of Service 09/18/2023 Reason for Consultation Diuresis, heart failure Referring Physician Dr. Duque History of Present Illness 43-year-old male morbidly obese male with PMH of atrial flutter [07/2022, on amiodarone, lopressor and Coumadin], BONNIE on 07/2022 showing multiple irregular masses in the RA cavity concerning for thrombus [transferred to [place] had a clot removal, PE with acute clot burden status post EKOS, CAD [mild nonobstructive CAD, [facility] on 08/15/2022], alcohol abuse [10 beers daily, down to 10 beer 3-4 times a week], tobacco abuse, metastatic RCC [s/p left nephrectomy 08/2020, radiation chemo [, T11 vertebral body fracture electrolyte occlusion, AKHIL [not using CPAP], COPD presented to the hospital and transferred from [facility] because of increased lower extremity swelling [...] INR supratherapeutic at 3.[address] [facility]. On examining the patient today patient was [...] RA cavity concerning for thrombus [transferred to [place] had a clot removal], Hx of PE [...] (Nicoderm Patch REMOVAL), 1 EA, Miscellaneous, q24h Visalia 325- 5 mg oral tablet, 1 tab(s), Oral, q4h, PRN Visalia 325-10 mg oral tablet, 1 tab(s), Oral, [...] None. Living situation: Home with assistance. 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 Safe place to go: Yes. Lives [...] KENAN NEWELL MD on 09/18/2023 12:[address] [facility] [id number] Urology Consult note Date of Service 09/18/2023 [...] embolism 08/05 status post thrombectomy at the [facility] patient usually on long-term anticoagulation with Coumadin. [...] and was unable to pass a 16 habematolel tip catheter due to resistance so I cut the tip off of a 14 [place] coud and thiswas passed without difficulty over [...] (Nicoderm Patch REMOVAL), 1 EA, Miscellaneous, q24h Visalia 325- 5 mg oral tablet, 1 tab(s), Oral, q4h, PRN Visalia 325-10 mg oral tablet, 1 tab(s), Oral, [...] None. Living situation: Home with assistance. 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 Safe place to go: Yes. Lives [...] LIAN BERNARD MD on 09/18/2023 05:[address] [facility] [id number] Note ORIGINAL EXAMINATION: NUCLEAR MEDICINE PERFUSION SCAN. [...] Sign Date: 09/18/2023 4:44:23 PM Ordering Provider: [facility]08-05-2024 Note ORIGINAL EXAMINATION: TWO XRAY VIEWS OF [...] Sign Date: 09/18/2023 3:04:08 PM Ordering Provider: [facility]08-05-2024 Evaluation + Plan note Extracted from: Title:History [...] Date:11/30/2023 03:30:00 PM Scheduled Provider:PROSPER MANJARREZ DO Location:[facility] Appointment Type:PC Wellness Annual Future [...] CT Abdomen and Pelvis w/ contrast 10/12/23 [facility] 08-05-2024 Cardiology Consult note Date of Service 09/18/2023 Reason for Consultation Diuresis, heart failure Referring Physician Dr. Duque History of Present Illness 43-year-old male morbidly obese male with PMH of atrial flutter [07/2022, on amiodarone, lopressor and Coumadin], BONNIE on 07/2022 showing multiple irregular masses in the RA cavity concerning for thrombus [transferred to [place] had a clot removal, PE with acute clot burden status post EKOS, CAD [mild nonobstructive CAD, C on 08/15/2022], alcohol abuse [10 beers daily, down to 10 beer 3-4 times a week], tobacco abuse, metastatic RCC [s/p left nephrectomy 08/2020, radiation chemo [, T11 vertebral body fracture electrolyte occlusion, AKHIL [not using CPAP], COPD presented to the hospital and transferred from [facility] because of increased lower extremity swelling [...] INR supratherapeutic at 3.[address] [facility]. On examining the patient today patient was [...] RA cavity concerning for thrombus [transferred to [place] had a clot removal], Hx of PE [...] (Nicoderm Patch REMOVAL), 1 EA, Miscellaneous, q24h Visalia 325- 5 mg oral tablet, 1 tab(s), Oral, q4h, PRN Visalia 325-10 mg oral tablet, 1 tab(s), Oral, [...] None. Living situation: Home with assistance. 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 Safe place to go: Yes. Lives [...] KENAN NEWELL MD on 09/18/2023 12:[address] [facility] [id number] NoteSinus rhythm Prolonged AK interval RBBB and LPFB Electronic Signature: YORDY BADILLO MD 09/19/2023 22:09:[address] [place] [address] 08-05-2024 History and physical note Date of [...] so he went to the emergency department [facility] In the emergency room at [facility] Scrotal ultrasound showed Very extensive diffuse scrotal [...] thus was held Patient was transferred to [facility] for assistance with cardiology for goals of [...] None. Living situation: Home with assistance. 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 Safe place to go: Yes. Lives [...] OSMAR DUQUE MD on 09/18/2023 03:[address] [facility] [id number] [facility] Progress note Pt has refused past 12 breathing aerosols. Had a lengthy conversation about the stagnant progress of his respiratory needs during this hospital stay. Pt remains adamant that the aerosols are what caused him to feel less responsive days ago. Now that pt is stable of current medicine regime, FURNITURE MANAGER offered to re-try aerosols. Pt refused Let pt know that he is able to bring in home maintenance inhalers if it made him more comfortable Digitally Signed by Ruthy Oconnor RT on 09/17/2023 11:24 AM [facility]08-04-2024 [facility] Progress note Pt has refused past 12 breathing aerosols. Had a lengthy conversation about the stagnant progress of his respiratory needs during this hospital stay. Pt remains adamant that the aerosols are what caused him to feel less responsive days ago. Now that pt is stable of current medicine regime, FURNITURE MANAGER offered to re-try aerosols. Pt refused Let pt know that he is able to bring in home maintenance inhalers if it made him more comfortable Digitally Signed by Ruthy Oconnor RT on 09/17/2023 11:24 AM [facility]08-04-2024 Note Date of Service 09/17/2023 Chief [...] last year. Recommend that patient transfer to [facility] so that he can be seen by [...] Oral, BID miconazole topical 2% Powder 1 jluia, Topical, BID Nicoderm patch REMOVAL 1 EA, [...] pain. Call placed to transfer center at [facility] as patient will require urgent cardiology consult. [...] by MURALI MAGANA on 09/17/2023 02:28 PM [facility]08-04-2024 [facility] Progress note At rest on 2L, Pt SpO2 93%, HR66 O2 taken off by FURNITURE MANAGER At rest on room air, Pt SpO2 82%, HR78 O2 placed back on Pt at 2L Pt qualifies for supplemental O2 at this time Digitally Signed by Ruthy Oconnor RT on 09/17/2023 09:06 AM [place] [address]-03-2024 [facility] Progress note Pt has refused last 8 scheduled breathing treatments. States no current SOB Digitally Signed by Ruthy Oconnor RT on 09/16/2023 11:27 AM [facility]08-03-2024 Note Date of Service 09/16/2023 Chief [...] he would always have to go to [place] for cardiology. Reviewed patient's chart and he was transferred last July [address] [facility] to [facility] due to right atrial mass and thrombus. He had a right heart cath at [facility] to remove the mass and thrombus and that revealed nonobstructive cardiomyopathy. His post-op follow-up visit indicated that he did not have to return to [facility] again. Depending on the results of his [...] by MURALI MAGANA on 09/16/2023 10:54 AM [facility]08-03-2024 Nurse Progress note Pt up to restroom without O2, ambulated back to bed and SaO2 87% on room air. Increased to 94% on 3L O2 per n/c. Digitally Signed by Fern Montes RN on 09/16/2023 10:41 AM [facility]08-02-2024 Nurse Progress note Radiology results reported to [facility], per Otilia Hammonds CNP on return call no new orders at this time. Pt is appropriately covered with ATB at this time, will continue to monitor closely and notify her of any change in condition. Digitally Signed by Nusrat Bennett LPN on 09/15/2023 11:24 PM [facility]08-02-2024 Note ORIGINAL EXAMINATION: TWO XRAY VIEWS [...] Date: 09/15/2023 8:54:43 PM Ordering Provider: [facility]08-02-2024 Note Date of Service 09/15/2023 Chief Complaint [...] by MURALI MAGANA on 09/15/2023 02:50 PM [facility]08-02-2024 Note* Exam Date Time Procedure Performing Provider Status 09/15/23 1:58 PM Echocardiogram, Adult - CV Auth (Verified) [facility] 08-02-2024 Nurse Progress note At approximately [...] Andreina Martin RN on 09/15/2023 10:24 AM [facility]07-30-2024 Note Date of Service 09/12/2023 Chief Complaint Pt alert and oriented. States noticed scrotum swelling since Monday. States progressively worse. History of Present Illness Patient is a 43-year-old male, who follows with Dr. Prosper Manjarrez with a past medical history significant for renal cell carcinoma, morbid obesity, COPD, pulmonary embolism on warfarin, alcohol and tobacco abuse, presents to [facility] emergency department with the chief complaint of [...] that patient was stable to stay at [facility] for antibiotic treatment of scrotal cellulitis [...] None. Living situation: Home with assistance. 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 Safe place to go: Yes. Lives [...] PM Digitally Signed by JAMES FERRER MD [facility]07-30-2024 Evaluation + Plan noteExtracted from: Title:History [...] Date:11/30/2023 03:30:00 PM Scheduled Provider:PROSPER MANJARREZ DO Location:[facility] Appointment Type:PC Wellness Annual Future [...] CT Abdomen and Pelvis w/ contrast 10/12/23 [facility] 07-30-2024 Note ORIGINAL EXAMINATION: ULTRASOUND OF [...] Sign Date: 09/12/2023 11:48:07 AM Ordering Provider: [facility]07-30-2024 Note ORIGINAL EXAMINATION: CT OF THE ABDOMEN [...] Sign Date: 09/12/2023 12:10:17 PM Ordering Provider: [place] [address]87-30-2024 Hospital Discharge instructions Follow Up Care 09/12/2023 08:25:16 With:PROSPER MANJARREZ DO Address: [address] [facility] [place] [address] [phone] When: Unknown [facility] 07-18-2024 Hospital Discharge instructions Patient Education [...] the nose or gums or easy bruising [id number] [employer]. [address] [place] [address]. All rights reserved. This information is not [...] to keep medicine down Weakness or dizziness [phone] [employer]. [address] [place] [address]. All rights reserved. This information is not intended as a substitute for professional medical care. Always follow yourhealthcare professional's instructions. Follow Up Care 08/31/2023 14:39:14 With:Your current spine nurse Address:Unknown When:2-4 days Comments:Schedule appointment as soon as possibleReturn to ED if symptoms worsenIncrease fluids follow-up for recheck and follow-up testing as soon as possible return for intractable vomiting fever uncontrollable shaking chills With:PROSPER NOWAKR Address: [address] [facility] [place] [address]- [phone] Business (1) When:2-4 days Comments:Schedule appointment as soon as possibleReturn to ED if symptoms worsenReturn for intractable vomiting uncontrollable shaking chills or feverFollow-up for urine culture results and recheckFollow-up for prostate testing [facility] 07-18-2024 Emergency department Discharge summary Discharge Instructions Thank you for allowing [employer] to assist you with your healthcare needs. The following is importantdischarge information regarding your hospital visit. Diagnosis from Today's Visit Bladder infection Hematuria What to Do Next Instructions from Your Care Team No qualifying data available. Post Acute Orders No qualifying data available. You Need to Schedule the Following Appointments Follow Up with Your current spine nurse When:Within 2-4 days Additional Information: Schedule appointment as soon as possible Return to ED if symptoms worsen Increase fluids follow-up for recheck and follow-up testing as soon as possible return for intractable vomiting fever uncontrollable shaking chills Follow Up with PROSPER MANJARREZ When:Within 2-4 days Where:[address] [facility] [place] [address]- [phone] Business (1) Additional Information: Schedule appointment as [...] the nose or gums or easy bruising [id number] [employer]. [address] [place], [place] [address]. All rights reserved. This information is not [...] a tube in your bladder, like a [place] catheter Bowel incontinence Older age Not emptying [...] to keep medicine down Weakness or dizziness [phone] [employer]. [address] [place] [address]. All rights reserved. This information is not intended as a substitute for professional medical care. Always follow yourhealthcare professional's instructions. Additional Information VACCINATE! IT SAVES LIVES! Members of the community who have not yet received the COVID-19 vaccine and would like to receive it can visit one of [facility] vaccine clinics. There are many vaccine clinic locations within the [facility]. For locations and available times, please visit www.[email or web address].[place].gov/. It is important to note that some COVID mobile vaccine clinics are held outdoors and may be canceled in rainy or stormy conditions. To learn more about pediatric vaccinations (ages 5-11), we invite you to visit the [facility] webpage. [email or web address]/[email or web address]-[email or web address]-[email or web address]-Hst stions.htmlTo learn more about the COVID-19 vaccine, we invite you to visit the CDC website for a list of frequently asked questions. https://www.cdc.gov/coronavirus/2019-ncov/vaccines/faq.html [employer] Patient Portal Access Instructions: Stay connected with your healthcare team and access your personal medical information anytime with the [facility] Patient Portal. If you would like a full copy of your medical records please contact the [facility] Medical Records Department Monday through Monday between 8a.m. and 4:30p.m. Please follow the directions below to access the portal: 1.Access the email account you provided upon registration to the [facility].2.Look for an invitation email from [facility].3.Open the email and access the invitation link: Accept Invitation to [facility]4.Fill in the required delaney to create your account. Sign into www.[employer] with your username and password that you [...] you will allow to register on the [facility] Patient Portal for access to your information. You can also access the [facility] Patient Portal on the [employer]. Simply click on "Health Records" under "HealthData" and then click on the [employer] logo. HOW TO SAFELY DISPOSE OF PRESCRIPTION [...] Call your local pharmacy or go to http://bit.[employer]icy[employer]/2G2Ud4g to find one close to you.3.Make use of household items: Use cat litter or old coffee grounds to dispose medications if other options arenot available. Mix your drugs with these household products, seal them in an airtight container andthrow it into the garbage. Call [facility]: [phone] to be sure your drugs can be [...] aware that I should contact my doctor. Patient/Forge Heater Signature: Date/Time: Relationship to Patient: Witness Name/Signature: Date/Time: [facility]07-11-2024 Summary of episode note LYNDSAY LOPEZ [...] 11/30/2023 03:30 PM EDT PROSPER MANJARREZ DO [address] [address] [address] Confirmed Medications What How Much [...] to receive it can visit one of [facility] vaccine clinics. There are many vaccine clinic locations within the [facility]. For locations and available times, please visit www.gettheshot.coronavirus.[place].gov/. It is important to note that some COVID mobile vaccine clinics are held outdoors and may be canceled in rainy or stormy conditions. To learn more about pediatric vaccinations (ages 5-11), we invite you to visit the [facility] webpage. https://www.[facility].org/pages/2606-Jflkg-Ubzfmpvjrbe-Lihcffehki-Sltpz-Kdh stions.htmlTo learn more about the COVID-19 vaccine, we invite you to visit the CDC website for a list of frequently asked questions. https://www.cdc.gov/coronavirus/2019-ncov/vaccines/faq.html [facility] Patient Portal Access Instructions: Stay connected with your healthcare team and access your personal medical information anytime with the [facility] Patient Portal.If you would like a full copy of your medical records, please contact the [facility] Medical Records Department, Monday through Monday between 8a.m. and 4:30p.m. Please follow the directions below to access the portal: 1.Access the email account you provided upon registration to the [facility].2.Look for an invitation email from [facility].3.Open the email and access the invitation link: Accept Invitation to [facility]4.Fill in the required delaney to create your [...] you will allow to register on the [place] [facility] Patient Portal for access to your information. You can also access the [facility] Patient Portal on the [employer] julia. Simply click on "Health Records" under "HealthData" and then click on the [place] logo. HOW TO SAFELY DISPOSE OF PRESCRIPTION [...] Call your local pharmacy or go to http://bit.ly/9I0Ly1r to find one close to you.3.Make use of household items: Use cat litter or old coffee grounds to dispose medications if other options arenot available. Mix your drugs with these household products, seal them in an airtight container andthrow it into the garbage. Call [facility]: [phone] to be sure your drugs can be [...] aware that I should contact my doctor. Patient/Forge Heater Signature: Date/Time: Relationship to Patient: Witness Name/Signature: Date/Time: [facility] [id number] Note ORIGINAL EXAMINATION: CT OF THE CHEST [...] Sign Date: 07/20/2023 4:27:06 PM Ordering Provider: [facility]06-06-2024 Note ORIGINAL EXAMINATION: CT OF THE ABDOMEN [...] Sign Date: 07/20/2023 3:52:33 PM Ordering Provider: [facility]01-04-2024 Summary of episode note JESSICA LYNDSAY Perez [...] InformationCT Chest w/o Contrast 03/09/2023 10:30 AM [facility] Radiology [phone] Abdomen/Pelvis w/Oral Contrast Only 03/09/2023 11:00 AM [facility] Radiology [phone] PALL OV Follow Up 03/16/2023 10:00 AM [...] to receive it can visit one of [facility] vaccine clinics. There are many vaccine clinic locations within the [facility]. For locations and available times, please visit www.gettheshot.coronavirus.[place].gov/. It is important to note that some COVID mobile vaccine clinics are held outdoors and may be canceled in rainy or stormy conditions. To learn more about pediatric vaccinations (ages 5-11), we invite you to visit the [facility] webpage. https://www.[facility].org/pages/5039-Jzqfl-Srjztipcfxn-Jhzhptwjdj-Dauqe-Vth stions.htmlTo learn more about the COVID-19 vaccine, we invite you to visit the CDC website for a list of frequently asked questions. https://www.cdc.gov/coronavirus/2019-ncov/vaccines/faq.html [facility] Patient Portal Access Instructions: Stay connected with your healthcare team and access your personal medical information anytime with the [facility] Patient Portal.If you would like a full copy of your medical records, please contact the [facility] Medical Records Department, Monday through Monday between 8a.m. and 4:30p.m. Please follow the directions below to access the portal: 1.Access the email account you provided upon registration to the hospital.2.Look for an invitation email from [facility].3.Open the email and access the invitation link: Accept Invitation to [facility]4.Fill in the required delaney to create your account. Sign into www.[employer] with your username and password that you [...] you will allow to register on the [facility] Patient Portal for access to your information. You can also access the [facility] Patient Portal on the [employer] julia. Simply click on "Health Records" under [...] Call your local pharmacy or go to [email or web address] to find one close to you.3.Make use of household items: Use cat litter or old coffee grounds to dispose medications if other options arenot available. Mix your drugs with these household products, seal them in an airtight container andthrow it into the garbage. Call [facility]: [phone] to be sure your drugs can be [...] aware that I should contact my doctor. Patient/Forge Heater Signature: Date/Time: Relationship to Patient: Witness Name/Signature: Date/Time: [facility] [id number] Hospital Discharge instructions Patient Education 01/19/2023 11:29:35 [...] help manage my side effects? Medicines Take pdxs-dmu-iaihnpn and prescription medicines only as told by your health care provider. Talk with your health care provider before taking vitamins, supplements, and xndq-mdp-vxveavq medicines. Some of these can interfere with [...] lose hair. Meet with a hair and hides and skins colorer for makeup and skin care tips. How [...] of your household wash their hands often. [place] your teeth daily using a soft toothbrush. [...] cancer care team. Friends and family. Your yarsani community. Other people with cancer. Online support groups. Where to find more information [employer] Cancer [place]: www.cancer.gov [place] [employer]: www.cancer.org Contact a health care [...] 04/26/2018 Document Revised: 04/26/2018 Document Reviewed: 04/26/2018 [employer] Patient Education [address] 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 S/P Left cytoreductive nephrectomy 08/14/20. Final path - ccRCC withsarcomatoid features. 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 Tests Performed .Auto Differential [...] help manage my side effects? Medicines Take ousf-pyw-ohfzvma and prescription medicines only as told by your health care provider. Talk with your health care provider before taking vitamins, supplements, and dicl-dtc-ffwvwjp medicines. Some of these can interfere with [...] lose hair. Meet with a hair and hides and skins colorer for makeup and skin care tips. How [...] of your household wash their hands often. [place] your teeth daily using a soft toothbrush. [...] cancer care team. Friends and family. Your yarsani community. Other people with cancer. Online support groups. Where to find more information National Cancer [place]: www.cancer.gov [place] [employer]: www.cancer.org Contact a health care [...] 04/26/2018 Document Revised: 04/26/2018 Document Reviewed: 04/26/2018 [employer] Patient Education 2020 [employer]. Additional Information VACCINATE! IT SAVES LIVES! Members of the community who have not yet received the COVID-19 vaccine and would like to receive it can visit one of [facility] vaccine clinics. There are many vaccine clinic locations within the [facility]. For locations and available times, please visit www.gettheshot.coronavirus.[place].gov/. It is important to note that some COVID mobile vaccine clinics are held outdoors and may be canceled in rainy or stormy conditions. To learn more about pediatric vaccinations (ages 5-11), we invite you to visit the [facility] webpage. https://www.[facility].org/pages/4611-Bxvmu-Kvxijjuxujb-Hjhqxcbfmg-Vdcym-Fod stions.htmlTo learn more about the COVID-19 vaccine, we invite you to visit the CDC website for a list of frequently asked questions. https://www.cdc.gov/coronavirus/2019-ncov/vaccines/faq.html [facility] Patient Portal Access Instructions: Stay connected with your healthcare team and access your personal medical information anytime with the [facility] Patient Portal.If you would like a full copy of your medical records, please contact the [facility] Medical Records Department, Monday through Monday between 8a.m. and 4:30p.m. Please follow the directions below to access the portal: 1.Access the email account you provided upon registration to the [facility].2.Look for an invitation email from [facility].3.Open the email and access the invitation link: Accept Invitation to [facility].Fill in the required delaney to create your account. Sign into www.[email or web address] with your username and password that you [...] you will allow to register on the [facility] [place] Patient Portal for access to your information. You can also access the [facility] Patient Portal on the [employer] julia. Simply click on "Health Records" under "[employer]DaConnectSolutions" and then click on the [employer] logo. HOW TO SAFELY DISPOSE OF PRESCRIPTION [...] Call your local pharmacy or go to http://[email or web address] Bicycles/[email or web address] to find one close to you.3.Make use of household items: Use cat litter or old coffee grounds to dispose medications if other options arenot available. Mix your drugs with these household products, seal them in an airtight container andthrow it into the garbage. Call [facility]: [phone] to be sure your drugs can be [...] aware that I should contact my doctor. Patient/Forge Heater Signature: Date/Time: Relationship to Patient: Witness Name/Signature: Date/Time: [facility] [id number] Summary of episode note LYNDSAY LOPEZ :1980 [...] Up w/Active Treatment 01/19/2023 10:00 AM BHAVIK SAWN MD Hematology and Oncology INF Chemo: Infusion [...] to receive it can visit one of [facility] vaccine clinics. There are many vaccine clinic locations within the [facility]. For locations and available times, please visit www.gettheshot.coronavirus.[place].gov/. It is important to note that some COVID mobile vaccine clinics are held outdoors and may be canceled in rainy or stormy conditions. To learn more about pediatric vaccinations (ages 5-11), we invite you to visit the [facility] webpage. https://www.[employer].org/pages/4465-Ywfyk-Mjbcrpgyaxx-Frxdmalaco-Vwwjx-Uep stions.htmlTo learn more about the COVID-19 vaccine, we invite you to visit the CDC website for a list of frequently asked questions. https://www.cdc.gov/coronavirus/2019-ncov/vaccines/faq.html [facility] Patient Portal Access Instructions: Stay connected with your healthcare team and access your personal medical information anytime with the [facility] Patient Portal.If you would like a full copy of your medical records, please contact the [facility] Medical Records Department, Monday through Monday between 8a.m. and 4:30p.m. Please follow the directions below to access the portal: 1.Access the email account you provided upon registration to the hospital.2.Look for an invitation email from [facility].3.Open the email and access the invitation link: Accept Invitation to [facility]4.Fill in the required delaney to create your account. Sign into www.[employer] with your username and password that you [...] you will allow to register on the [facility] Patient Portal for access to your information. You can also access the [facility] Patient Portal on the [employer] julia. Simply click on "Health Records" under "[employer]" and then click on the [employer] logo. HOW TO SAFELY DISPOSE OF PRESCRIPTION [...] Call your local pharmacy or go to [email or web address] to find one close to you.3.Make use of household items: Use cat litter or old coffee grounds to dispose medications if other options arenot available. Mix your drugs with these household products, seal them in an airtight container andthrow it into the garbage. Call [facility]: [phone] to be sure your drugs can be [...] aware that I should contact my doctor. Patient/Forge Heater Signature: Date/Time: Relationship to Patient: Witness Name/Signature: Date/Time: [facility] [id number] Summary of episode note LYNDSAY LOPEZ :1980 [...] aware that I should contact my doctor. Patient/Forge Heater Signature: Date/Time: Relationship to Patient: Witness Name/Signature: Date/Time: 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 S/P Left cytoreductive nephrectomy 08/14/20. Final path - ccRCC withsarcomatoid features. 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 Tests Performed .Auto Differential [...] OV 10/20/2022 10:30 AM PROSPER MEADOWS DO [facility] HEM ONC OV Follow Up w/Active Treatment 10/27/2022 10:15 AM EDT BHAVIK TRIANA MD [facility] Test Results .Auto Differential [...] aware that I should contact my doctor. Patient/Forge Heater Signature: Date/Time: Relationship to Patient: Witness Name/Signature: Date/Time: [facility] [id number] [facility]07-17-2023 Reason for referral (narrative)* Reason for Referral: management on RA thrombi during hospitalization for submassive PE. He is now s/p right atrial mass removal and pulmonary thrombectomy via median sternotomy [facility]07-06-2023 [facility]07-06-2023 History of Present illness Narrative* This [...] and under follow-up with Dr Elkins. -CT Surgery[facility] [address] Work Phone: 1(517) 526-397807-06-2023 History of Present illness Narrative* This was [...] rehab and under follow-up with Dr Elkins. YX-Agibkumcpi-FC[facility] [address] [place] Work Phone: 1(593) 508-620307-06-2023 [facility]07-06-2023 [facility]07-05-2023 [facility] 08-15-2022 [facility]06-28-2023 [facility]06-28-2023 Discharge summary Date of Service 08/09/2022 [...] right heart strain. He was transferred to [facility] and admitted under MICU & started on [...] agreeable to transfer. Patient was accepted at [facility] by Dr. Jiménez and was subsequently transferred to [facility] for further intervention same night. Allergies penicillin [...] available. Condition on Discharge Fair Discharge Disposition [facility] Digitally Signed by MIKE RIVERA MD on 08/10/2022 12:54 AM [place] [address]-27-2023 Oncology Progress note Subjective He was feeling [...] -2400.00 Physical Exam In no apparent distress WORKS MANAGER: He was awake and alert Respiratory: No [...] for tachycardia Patient is being transferred to [place] for cardioversion. Blood clot seen on the BONNIE Overall patient was feeling better Digitally Signed by BHAVIK TRIANA MD on 08/09/2022 06:[address] [facility] [id number] Pulmonary Progress note Date of Service 08/09/2022 [...] pending sleep study . Patient admitted to [facility] acute submassive PE he is status post [...] EMILIO LOPEZ MD on 08/09/2022 05:[address] [facility] [id number] Note Date of Service 08/09/2022 Chief Complaint [...] right heart strain. He was transferred to [facility] and admitted under MICU started on heparin [...] next month. 6. Hyponatremia Resolved Morbid obesity Foundry Finisher on tobacco and alcohol cessation. Plan of care discussed with patient at bedside. Digitally Signed by MIKE RIVERA MD on 08/09/2022 01:[address] [facility] [id number] Note Date of Service 08/09/2022 Chief Complaint [...] right heart strain. He was transferred to [facility] and admitted under MICU started on heparin [...] next month. 6. Hyponatremia Resolved Morbid obesity Foundry Finisher on tobacco and alcohol cessation. Plan of care discussed with patient at bedside. Digitally Signed by MIKE RIVERA MD on 08/09/2022 01:[address] [facility] [id number] Note Date of Service 08/09/2022 Chief Complaint [...] next month. 6. Hyponatremia Resolved Morbid obesity Foundry Finisher on tobacco and alcohol cessation. Plan of care discussed with patient at bedside. Digitally Signed by MIKE RIVERA MD on 08/09/2022 01:[address] [facility] [id number] Anesthesiology Consult note Patient: LYNDSAY LOPEZ Age: [...] list: Medical Alcohol abuse / SNOMED CT 86591356 / Confirmed Cigarette smoker Active / SNOMED CT 825315958 / Confirmed T11 vertebral fracture / SNOMED CT 5285822421 / Confirmed Marijuana user Active / SNOMED CT 4199742003 / Confirmed Metastatic renal cell carcinoma. S/P Left cytoreductive nephrectomy 08/14/20. Final path - ccRCC withsarcomatoid features. / SNOMED CT 8490777964 / Confirmed Lung nodule, multiple Active / SNOMED CT 8854905619 / Confirmed No chronic diseases present / SNOMED CT [id number] / Confirmed Left renal mass. 9.6-cm. With perinephric fat invasion. With lytic bony lesion and pulmonary nodules concerning for mets. BS, 07/2020 - neg. CT brain, 07/2020 - neg. S/P Radical nephrectomy 08/14/20. / SNOMED CT 809961830 / Confirmed Secondary malignant neoplasm of bone (disorder) Active / SNOMED CT 002452052 / Confirmed Tobacco abuse / SNOMED CT 665948873 / Confirmed Viral gastroenteritis / SNOMED CT 175970456 / Confirmed Resolved: Renal cell carcinoma (disorder) Active / SNOMED CT 5727904708 Canceled: Left renal mass. 9.6-cm. With perinephric fat invasion. With lytic bony lesion and pulmonary nodules concerning for mets. / SNOMED CT 420691755 Canceled: Left renal mass. 9.6-cm. With perinephric fat invasion. With lytic bony lesion and pulmonary nodules concerning for mets. CT brain, 07/2020 - neg. / SNOMED CT 680268998 Canceled: Left renal mass. 9.6-cm. With perinephric fat invasion. With lytic bony lesion and pulmonary nodules concerning for mets. BS, 07/2020 - neg. CT brain, 07/2020 - neg. / SNOMED CT 898486963, Active Problems (26) Alcohol abuse Anxiety Arthritis [...] Medical History: Active No chronic diseases present ([id number]) Resolved Renal cell carcinoma (disorder) Active (1810962194): Resolved. Family History: Kidney stone Mother Sister Rheumatoid arthritis Mother Hypertension Mother Father Heart attack Father Crohn's disease Sister HTN - Hypertension Mother Father Diabetes Father Procedure history: Tooth extraction (75679694) on 08/28/2021 at 41 Years. Nephrectomy, including partial ureterectomy, any open approach including rib resection; radical, with regional lymphadenectomy and/or vena caval thrombectomy (00805) on 08/14/2020 at 40 Years. Tonsillectomy (473735552). Chemotherapy (623552751). Comments: 11/17/2020 9:50 HENOK Bucio 3 weeks ago Boost radiation therapy ([id number]). Comments: 11/17/2020 9:51 HENOK Bucio J 10-5-21 [...] Daily Tobacco/Smoke Exposure - 10/25/2018 09:49 - Mley Beth [facility] Home/Environment 08/14/2020 Domestic Concerns None Living situation: Home with assistance Primary Shot Polisher And Inspector: Father Safe place to go: Yes Lives [...] Resp Rate 20 br/min (AUG 09 11:19) UNQ983 mmHg (AUG 09 11:19) DBPH 98mmHg (AUG 09 11:19) Measurements from flowsheet : Measurements 08/08/2022 13:17 EDT [place] Body Weight 70 kg Pain assessment: Pain [...] secretions Sputum Amount Small Sputum Color Light, [place] Sputum Consistency Thick Oxygen Therapy Venti-Mask Oxygen [...] Attendee SN - CAt - Role Performed RETAIL ADVERTISING ACCOUNT EXECUTIVE SN - CAt - Role Performed Procedure [...] (Modified) SN - CAt - Role Performed Oncology Research Rn (Modified) SN - CAt - Role Performed [...] [place] Sputum Amount Small Sputum Color Light, [place] Sputum Consistency Thick Oxygen Therapy Venti-Mask Oxygen [...] Type 0-10 Pain scale Nail Bed Color [place] Capillary Refill < 2 seconds Heart Sounds [...] intact Skin Turgor Non-Elastic Mucous Membrane Color [place] Mucous Membrane Description Moist Sensory Perception [place] [...] Alert Aspiration Risk None Eye Opening Response [place] Spontaneously Best Motor Response Dom[place] Obeys simple commands Best Verbal Response [place] Oriented [place] Coma Score 15 GERMAN Yes Left Pupil [...] Type 0-10 Pain scale Nail Bed Color [place] Capillary Refill < 2 seconds Dorsalis Pedis [...] grimaces Skin Symptoms Bruising All Extremity Description [place], Normal for ethnicity Skin Temperature Warm Temperature All Extremities Warm Skin Description [place], Dry Skin Integrity Not intact Skin Turgor Non-Elastic Mucous Membrane Color [place] Mucous Membrane Description Moist Continuous IV Infusions [...] Dom[place] Obeys simple commands Best Verbal Response [place] Oriented [place] Coma Score 15 GERMAN Yes Left Pupil [...] L/min BiPAP/CPAP Mode BiPAP BiPAP/CPAP Machine Model [employer] V60 BiPAP/CPAP Machine ID [id number] Estimated Leak 7 L/min Mask/Delivery Type Full [...] On and Limits Checked Nail Bed Color [place] Capillary Refill < 2 seconds Heart Sounds [...] Yellow Urine Description Clear All Extremity Description [place] Temperature All Extremities Warm Skin Description [place], Dry Mucous Membrane Color [place] Mucous Membrane Description Moist Implanted port Right [...] Not Done: Task (more content not included)... [facility] [id number] Anesthesiology Consult note Patient: LYNDSAY LOPEZ Age: [...] MAR BERNARD MD on 08/09/2022 12:[address] [facility] CenterTbnuohip09-17-2268 Note Date of Service 08/09/2022 Chief Complaint [...] right heart strain. He was transferred to [facility] and admitted under MICU started on heparin [...] next month. 6. Hyponatremia Resolved Morbid obesity Foundry Finisher on tobacco and alcohol cessation. Plan of care discussed with patient at bedside. Digitally Signed by MIKE RIVERA MD on 08/09/2022 01:[address] [facility] [id number] Oncology Progress note Subjective Pain and shortness [...] -203.00 Physical Exam In no apparent distress WORKS MANAGER: He was awake and alert Respiratory: No [...] BHAVIK TRIANA MD on 08/08/2022 08:[address] [facility] [id number] Note Date of Service 08/08/2022 Chief Complaint [...] right heart strain. He was transferred to [facility] and admitted under MICU started on heparin [...] in the 130s and currently n.p.o. for BONINE cardioversion today. Denies any palpitations, worsening shortness [...] next month. 6. Hyponatremia Pending a.m. labs. 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 Patient is high risk of clinical deterioration given multiple comorbidities, including morbid obesity, atrial flutter and new diagnosis of pulmonary embolism with right heart strain. Plan of care discussed with patient at bedside. Digitally Signed by MIKE RIVERA MD on 08/08/2022 08:[address] [facility] CenterGvammomf85-49-1278 Pulmonary Progress note Date of Service 08/08/2022 [...] pending sleep study . Patient admitted to [facility] acute submassive PE he is day 2 [...] MIRTA WICK MD on 08/08/2022 02:[address] [facility] [id number] Anesthesiology Consult note Patient: LYNDSAY LOPEZ Age: [...] pain, # 90 tab(s), 0 Refill(s), Pharmacy: [facility]/pharmacy #[id number], Renal cancer, 172.7, cm, 06/09/22 11:10:00 EDT, [...] list: Medical Alcohol abuse / SNOMED CT 57670406 / Confirmed Cigarette smoker Active / SNOMED CT 669055115 / Confirmed T11 vertebral fracture / SNOMED CT 5774719007 / Confirmed Marijuana user Active / SNOMED CT 5733985569 / Confirmed Metastatic renal cell carcinoma. S/P Left cytoreductive nephrectomy 08/14/20. Final path - ccRCC withsarcomatoid features. / SNOMED CT 8798970198 / Confirmed Lung nodule, multiple Active / SNOMED CT 5232809770 / Confirmed No chronic diseases present / SNOMED CT [id number] / Confirmed Left renal mass. 9.6-cm. With perinephric fat invasion. With lytic bony lesion and pulmonary nodules concerning for mets. BS, 07/2020 - neg. CT brain, 07/2020 - neg. S/P Radical nephrectomy 08/14/20. / SNOMED CT 385038203 / Confirmed Secondary malignant neoplasm of bone (disorder) Active / SNOMED CT 697448182 / Confirmed Tobacco abuse / SNOMED CT 931752745 / Confirmed Viral gastroenteritis / SNOMED CT 426180405 / Confirmed, Active Problems (26) Alcohol abuse [...] Medical History: Active No chronic diseases present ([id number]) Resolved Renal cell carcinoma (disorder) Active (3306691771): Resolved. Family History: Kidney stone Mother Sister Rheumatoid arthritis Mother Hypertension Mother Father Heart attack Father Crohn's disease Sister HTN - Hypertension Mother Father Diabetes Father Procedure history: Tooth extraction (77227317) on 08/28/2021 at 41 Years. Nephrectomy, including partial ureterectomy, any open approach including rib resection; radical, with regional lymphadenectomy and/or vena caval thrombectomy (26701) on 08/14/2020 at 40 Years. Tonsillectomy (623835137). Chemotherapy (921347257). Comments: 11/17/2020 9:50 HENOK Bucio 3 weeks ago Boost radiation therapy ([id number]). Comments: 11/17/2020 9:51 HENOK Bucio 11-17-20 Social [...] 16, 2020 - 08/14/2020 10:33 - HENOK Prudy Employment/School 12/16/2020 Status: Employed Substance Abuse 11/07/2016Risk [...] None Living situation: Home with assistance Primary Shot Polisher And Inspector: Father Safe place to go: Yes Lives [...] Transport Mode Order Detail MTT with Monitor Dog Pound Attendant Details Form Dog Pound Attendant Details Form 08/08/2022 4:19 EDT Mechanical VTE [...] Arousable with minimal stimulation Eye Opening Response [place] Spontaneously Best Motor Response Dominga Obeys simple commands Best Verbal Response [place] Oriented [place] Coma Score 15 GERMAN Yes Affect/Behavior Appropriate, [...] Machine Model Kristen V60 BiPAP/CPAP Machine ID [id number] Estimated Leak 4 L/min Mask/Delivery Type Full [...] Rhythm Sinus tachycardia Monitoring Lead II, V5/MCL5 AK Interval 0.12 second(s) QRS Duration 0.09 second(s) [...] Rhythm Sinus tachycardia Monitoring Lead II, V1/MCL1 AK Interval 0.10 second(s) QRS Duration 0.09 second(s) [...] Machine Model Kristen V60 BiPAP/CPAP Machine ID [id number] Estimated Leak 0 L/min Mask/Delivery Type Full [...] indicates understanding Ed-Breathing Techniques Needs further teaching Ud-Gbdldk-Du Care/Appointment Needs further teaching Edu-Med Generic/Brand Name,Purpose,Action [...] Transport Mode Order Detail MTT with Monitor Dog Pound Attendant Details Form Dog Pound Attendant Details Form 08/07/2022 21:27 EDT BiPAP/CPAP Machine [...] Not Done: See ICU flow (Not Done) Dog Pound Attendant Details Form Not Done (Not Done) Sequential [...] On and Limits Checked Nail Bed Color [place] Capillary Refill < 2 seconds Heart Sounds ICU S1S2 Heart Rhythm Regular Dorsalis Pedis Pulse, Left 1+ Thready Dorsalis Pedis Pulse, Right 1+ Thready Posttibial Pulse, Left 1+ Thready Posttibial Pulse, Right 1+ Thready Radial Pulse, Left 2+ Normal Radial Pulse, Right 2+ Normal Leg edema Edema Ratin+ mild/4mm Cardiac Rhythm Sinus tachycardia Monitoring Lead II, V1/MCL1 AK Interval 0.13 second(s) QRS Duration 0.07 second(s) [...] grimaces Skin Symptoms Bruising All Extremity Description [place] Skin Temperature Warm Temperature All Extremities Warm Skin Description Normal for ethnicity Skin Integrity Not intact Skin Turgor Non-Elastic Mucous Membrane Color [place] Mucous Membrane Description Moist Groin Right Skin [...] Alert Aspiration Risk None Eye Opening Response [place] Spontaneously Best Motor Response [place] Obeys simple commands Best Verbal Response [place] Oriented [place] Coma Score 15 GERMAN Yes Left Pupil [...] On and Limits Checked Nail Bed Color [place] Capillary Refill < 2 seconds Heart Sounds ICU S1S2 Heart Rhythm Regular Dorsalis Pedis Pulse, Left 2+ Normal Dorsalis Pedis Pulse, Right 2+ Normal Posttibial Pulse, Left 1+ Thready Posttibial Pulse, Right 1+ Thready Radial Pulse, Left 2+ Normal Radial Pulse, Right 2+ Normal Cardiac Rhythm Sinus tachycardia Monitoring Lead II, V5/MCL5 AK Interval 0.13 second(s) QRS Duration 0.1 second(s) [...] intact Skin Turgor Non-Elastic Mucous Membrane Color [place] Mucous Membrane Description Moist Sensory Perception Haroon [...] Response Dominga To voice Best Motor Response [place] Obeys simple commands Best Verbal Response Dominga Oriented [place] Coma Score 14 GERMAN Yes Left Pupil [...] On and Limits Checked Nail Bed Color [place] Capillary Refill < 2 seconds Heart Sounds [...] Not intact < (more content not included)... [id number] Note Date of Service 08/08/2022 Chief Complaint [...] right heart strain. He was transferred to [facility] and admitted under MICU started on heparin [...] next month. 6. Hyponatremia Pending a.m. labs. 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 Patient is high risk of clinical deterioration given multiple comorbidities, including morbid obesity, atrial flutter and new diagnosis of pulmonary embolism with right heart strain. Plan of care discussed with patient at bedside. Digitally Signed by MIKE RIVERA MD on 08/08/2022 08:[address] [facility] CenterHkokbadk19-28-2055 Note Date of Service 08/07/2022 Chief Complaint [...] right heart strain. He was transferred to [facility] and admitted under MICU started on heparin [...] MIKE RIVERA MD on 08/07/2022 08:[address] [facility] CenterHveiffic44-32-2702 Pulmonary Progress note Date of Service 08/07/2022 [...] pending sleep study . Patient admitted to [facility] acute submassive PE he is day 2 [...] MIRTA WICK MD on 08/07/2022 12:[address] [facility] CenterWituvhwr52-24-3522 Note Date of Service 08/07/2022 Chief Complaint Atrial flutter Subjective 42-year-old male with metastatic RCC and PE status post cardiac arrest with lateral pulmonary emboli and EKOS thrombectomy, alcohol use, obstructive sleep apnea noted to have atrial flutter with rapid ventricular response and RV dysfunction. He is currently on medical treatment in the surgical intensive care unit awaiting a BONNIE guided cardioversion church of sinus rhythm. 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 Currently still [...] RAJAN OROZCO MD on 08/07/2022 12:[address] [facility] CenterJyarlfih16-55-4213 Note Date of Service 08/06/2022 Chief Complaint Atrial flutter Subjective 42-year-old male with metastatic RCC and PE status post cardiac arrest with lateral pulmonary emboli and EKOS thrombectomy, alcohol use, obstructive sleep apnea noted to have atrial flutter with rapid ventricular response and RV dysfunction. He is currently on medical treatment in the surgical intensive care unit awaiting a BONNIE guided cardioversion church of sinus rhythm. The echocardiogram shows evidence [...] a BONNIE guided cardioversion for sinus rhythm church. Digitally Signed by RAJAN OROZCO MD on 08/06/2022 02:[address] [facility] [id number] Note Date of Service 08/06/2022 Subjective 42-year-old [...] diet to low potassium. Pablo Juarez M.D., [facility] Digitally Signed by PABLO JURAEZ MD on 08/06/2022 08:[address] [facility] CenterYanipwfe50-14-8722 Cardiology Consult note Date of Service 08/05/2022 [...] board. Ultimately patient will do better with church of sinus rhythm. Recommend BONNIE/DCCV under anesthesia as patient has episodes of hypoxia and concern for decompensation. May also consider ablation in outpatient setting. [id number] score only 1 however given hypercoagulable state [...] of this technology. Lesley Green DO, MS Second Hand Paper Machine (PGY-5) Pager [phone]/ Cortext Problem List/Past Medical History Ongoing Alcohol [...] None. Living situation: Home with assistance. 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 Safe place to go: Yes. Lives [...] LESLEY GREEN DO on 08/05/2022 03:[address] [facility] CenterWfzpawzh95-49-7970 Cardiology Progress note Date of Service 08/05/22 Chief Complaint SOB RFC Atrial flutter HPI 42-year-old man with past medical history of medical history of metastatic renal cell carcinoma (status post left nephrectomy 08/2020, radiation, ipilimumab, nivolumab), T11 vertebral body fracture due to lytic bone lesion, suspected AKHIL/OHS tobacco abuse, alcohol abuse and morbid obesity came into the emergency department at [place] due to complaints of shortness of breath and chest pain. Initial CT angio of the chest showed right main pulmonary artery embolism with concern for right heart strain. Patient was transferred to the [facility] for further management under MICU care. During [...] II, MD PGY-4 Cardiovascular Disease Fellow Pager: [phone] Digitally Signed by RACHELL MELGAR MD on 08/05/2022 03:[address] [facility] CenterJnufxgoq43-95-8305 Oncology Progress note Subjective Shortness of breath [...] 998.03 Physical Exam In no apparent distress WORKS MANAGER: He was awake and alert Pulm: No [...] BHAVIK TRIANA MD on 08/05/2022 06:[address] [facility] CenterJriiilov94-57-4447 Cardiology Progress note Date of Service 08/05/22 Chief Complaint SOB RFC Atrial flutter HPI 42-year-old man with past medical history of medical history of metastatic renal cell carcinoma (status post left nephrectomy 08/2020, radiation, ipilimumab, nivolumab), T11 vertebral body fracture due to lytic bone lesion, suspected AKHIL/OHS tobacco abuse, alcohol abuse and morbid obesity came into the emergency department at [place] due to complaints of shortness of breath and chest pain. Initial CT angio of the chest showed right main pulmonary artery embolism with concern for right heart strain. Patient was transferred to the [facility] for further management under MICU care. During [...] II, MD PGY-4 Cardiovascular Disease Fellow Pager: [phone] Digitally Signed by RACHELL MELGAR MD on 08/05/2022 03:[address] [facility] CenterToiixjlp62-48-1627 Cardiology Consult note Date of Service 08/05/2022 [...] board. Ultimately patient will do better with church of sinus rhythm. Recommend BONNIE/DCCV under anesthesia as patient has episodes of hypoxia and concern for decompensation. May also consider ablation in outpatient setting. [id number] score only 1 however given hypercoagulable state [...] of this technology. Lesley Green DO, MS Second Hand Paper Machine (PGY-5) Pager [phone]/ Cortext Problem List/Past Medical History Ongoing Alcohol [...] None. Living situation: Home with assistance. 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 Safe place to go: Yes. Lives [...] LESLEY GREEN DO on 08/05/2022 03:[address] [facility] [id number] Note Date of Service 08/05/2022 Chief Complaint [...] EMILIO LOPEZ MD on 08/05/2022 10:[address] [facility] CenterTpcqltjt14-25-6162 Note ORIGINAL EXAMINATION: CT OF THE ABDOMEN [...] 08/04/2022 10:04:02 PM Ordering Provider: TAMI VELASQUEZ [facility] CenterGgkugsfi81-01-5979 Cardiology Progress note Date of Service 08/04/22 Chief Complaint SOB RFC Atrial flutter HPI 42-year-old man with past medical history of medical history of metastatic renal cell carcinoma (status post left nephrectomy 08/2020, radiation, ipilimumab, nivolumab), T11 vertebral body fracture due to lytic bone lesion, suspected AKHIL/OHS tobacco abuse, alcohol abuse and morbid obesity came into the emergency department at [place] due to complaints of shortness of breath and chest pain. Initial CT angio of the chest showed right main pulmonary artery embolism with concern for right heart strain. Patient was transferred to the [facility] for further management under MICU care. During [...] II, MD PGY-4 Cardiovascular Disease Fellow Pager: [phone] Digitally Signed by RACHELL MELGAR MD on 08/04/2022 04:20 PM Digitally Signed by RACHELL MELGAR MD on 08/04/2022 04:[address] [facility] CenterRyruytvm22-59-4732 Note ORIGINAL EXAMINATION: CT OF THE ABDOMEN [...] Sign Date: 08/04/2022 10:04:02 PM Ordering Provider: [facility]06-22-2023 Note Date of Service 08/04/2022 Subjective [...] JOI SORIANO MD on 08/04/2022 09:[address] [facility] CenterSmnsnfix50-40-0647 Note ORIGINAL HISTORY: Hypoxia COMPARISON: Previous day [...] 08/04/2022 9:04:46 AM Ordering Provider: RACHELL OSBORNE [facility] CenterIykvbvpp69-46-8539 Cardiology Progress note Date of Service 08/04/22 Chief Complaint SOB RFC Atrial flutter HPI 42-year-old man with past medical history of medical history of metastatic renal cell carcinoma (status post left nephrectomy 08/2020, radiation, ipilimumab, nivolumab), T11 vertebral body fracture due to lytic bone lesion, suspected AKHIL/OHS tobacco abuse, alcohol abuse and morbid obesity came into the emergency department at [place] due to complaints of shortness of breath and chest pain. Initial CT angio of the chest showed right main pulmonary artery embolism with concern for right heart strain. Patient was transferred to the [facility] for further management under MICU care. During [...] II, MD PGY-4 Cardiovascular Disease Fellow Pager: [phone] Digitally Signed by RACHELL MELGAR MD on 08/04/2022 04:20 PM Digitally Signed by RACHELL MELGAR MD on 08/04/2022 04:[address] [facility] [id number] Note ORIGINAL HISTORY: Hypoxia COMPARISON: Previous day [...] AM Ordering Provider: [facility]06-21-2023 Oncology Consult note Date of Service 08/03/2022 [...] None. Living situation: Home with assistance. 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 Safe place to go: Yes. Lives [...] by TAMI VELASQUEZ on 08/03/2022 12:[address] [facility] CenterEocxuzxq39-13-3327 Cardiology Consult note Date of Service 08/03/22 [...] obesity came into the emergency department at [place] due to complaints of shortness of breath and chest pain. Initial CT angio of the chest showed right main pulmonary artery embolism with concern for right heart strain. Patient was transferred to the [facility] for further management under MICU care. During [...] II, MD PGY-4 Cardiovascular Disease Fellow Pager: [phone] Problem List/Past Medical History Ongoing Alcohol abuse [...] None. Living situation: Home with assistance. 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 Safe place to go: Yes. Lives [...] RACHELL MELGAR MD on 08/03/2022 07:[address] [facility] CenterThzubzma47-79-9350 Cardiology Consult note Date of Service 08/03/22 [...] obesity came into the emergency department at [place] due to complaints of shortness of breath and chest pain. Initial CT angio of the chest showed right main pulmonary artery embolism with concern for right heart strain. Patient was transferred to the [facility] for further management under MICU care. During [...] II, MD PGY-4 Cardiovascular Disease Fellow Pager: [phone] Problem List/Past Medical History Ongoing Alcohol abuse [...] None. Living situation: Home with assistance. 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 Safe place to go: Yes. Lives [...] RACHELL MELGAR MD on 08/03/2022 07:[address] [facility] CenterBzknrnwt27-23-3321 Oncology Consult note Date of Service 08/03/2022 [...] None. Living situation: Home with assistance. 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 Safe place to go: Yes. Lives [...] by TAMI VELASQUEZ on 08/03/2022 12:[address] [facility] CenterTthoijui87-54-5357 Note ORIGINAL Images acquired, not reported on this accession number. [facility] [id number] Note ORIGINAL Images acquired, not reported on this accession number.[facility] 08-02-2022 Vascular surgery Consult note Date of [...] None. Living situation: Home with assistance. 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 Safe place to go: Yes. Lives [...] PROSPER CORDON MD on 08/02/2022 06:[address] [facility] CenterNgyihtcs36-39-8069 History and physical note Date of Service [...] on heparin by weight, and transferred to [place] [facility] for further evaluation management. 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 [facility] CenterQbnwdkja06-72-2522 Evaluation + Plan noteExtracted from: Title:History and [...] or transfer note as written/dictated by the certified medical coding specialist which I have reviewed. In addition to [...] continue to follow there. Pablo Juarez M.D., [facility] Future Appointments Appointment Date:08/11/2022 09:45:00 AM [...] Date:09/01/2022 11:00:00 AM Scheduled Provider:LIAN FUNG MD Location:[place] Palliative Appointment Type:PALL OV Follow Up Future Scheduled Tests Laboratory* Cortisol Level 08/04/22 * Lactate Dehydrogenase 08/04/22 * Thyroid Stimulating Hormone 08/04/22 * Free T4 08/04/22 * Complete Blood Count 08/04/22 * Free T3 08/04/22 * Complete Metabolic Panel 08/04/22 Radiology* CT Thorax w/ Contrast 08/18/21 * XR Shoulder Minimum 2 Views Right 12/08/21 * CT Abdomen and Pelvis w/ contrast 08/18/21 [facility] 06-20-2023 Note ORIGINAL EXAMINATION: ONE XRAY VIEW [...] Date: 08/02/2022 8:02:35 AM Ordering Provider: FE [facility]06-20-2023 Note ORIGINAL EXAMINATION: ONE XRAY VIEW OF [...] Sign Date: 08/02/2022 8:02:35 AM Ordering Provider: [facility]06-20-2023 Nurse Progress note Pt states he wants to walk to the bathroom and not wear his cpap and oxygen. I educated the patienton importance of bedrest due to PE and R heart strain. Patient stated " this is ridiculousness, my feet are numb". 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 Ramirez to bedside. Again, patient states "what? this could kill me? yeah.. right". Interventions of repositioning, medication, or elevation were discussed with patient,patient declined. Patient then stated "piss off". Pt was left with his call light in hand, bed alarm on and lowest position. Digitally Signed by Brandy Rodrigues RN on 08/02/2022 02:[address] [facility] CenterUinslcfg78-81-1340 History and physical note Date of Service [...] on heparin by weight, and transferred to [place] [facility] for further evaluation management. 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 S/P Left cytoreductive nephrectomy 08/14/20. Final path - ccRCC withsarcomatoid features. 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 There are many vaccine clinic locations within the [facility]. For locations and available times, please visit [email or web address] It is important to note that some COVID mobile vaccine clinics are held outdoors and may be canceled in rainy or stormy conditions. To learn more about pediatric vaccinations (ages 5-11), we invite you to visit the [facility] webpage. [email or web address]/[email or web address]-Vop [email or web address].htmlTo learn more about the COVID-19 vaccine, we invite you to visit the CDC website for a list of frequently asked questions. https://www.cdc.gov/coronavirus/2019-ncov/vaccines/faq.html [place] [facility] Patient Portal Access Instructions: Stay connected with your healthcare team and access your personal medical information anytime with the [facility] Patient Portal.If you would like a full copy of your medical records, please contact the [facility] Medical Records Department, Monday through Monday between 8a.m. and 4:30p.m. Please follow the directions below to access the portal: 1.Access the email account you provided upon registration to the [facility].2.Look for an invitation email from [facility].3.Open the email and access the invitation link: Accept Invitation to [facility]4.Fill in the required delaney to create your account. Sign into www.[employer] with your username and password that you [...] you will allow to register on the [facility] Patient Portal for access to your information. You can also access the [facility] Patient Portal on the [employer] julia. Simply click on "Health Records" under "HealthData" and then click on the [employer] logo. HOW TO SAFELY DISPOSE OF PRESCRIPTION [...] Call your local pharmacy or go to [email or web address] to find one close to you.3.Make use of household items: Use cat litter or old coffee grounds to dispose medications if other options arenot available. Mix your drugs with these household products, seal them in an airtight container andthrow it into the garbage. Call [facility]: [phone] to be sure your drugs can be [...] aware that I should contact my doctor. Patient/Forge Heater Signature: Date/Time: Relationship to Patient: Witness Name/Signature: Date/Time: 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 S/P Left cytoreductive nephrectomy 08/14/20. Final path - ccRCC withsarcomatoid features. Other [facility] (current) drug therapy Tests Performed .Auto Differential [...] 06/09/2022 10:00 AM EDT BHAVIK TRIANA MD [facility] Medications What How Much [...] to receive it can visit one of [facility] vaccine clinics. There are many vaccine clinic locations within the [facility]. For locations and available times, please visit [email or web address] It is important to note that some COVID mobile vaccine clinics are held outdoors and may be canceled in rainy or stormy conditions. To learn more about pediatric vaccinations (ages 5-11), we invite you to visit the [facility] webpage. [email or web address]/[email or web address] [email or web address].htmlTo learn more about the COVID-19 vaccine, we invite you to visit the CDC website for a list of frequently asked questions. https://www.cdc.gov/coronavirus/2019-ncov/vaccines/faq.html [facility] Patient Portal Access Instructions: Stay connected with your healthcare team and access your personal medical information anytime with the [facility] Patient Portal.If you would like a full copy of your medical records, please contact the [facility] Medical Records Department, Monday through Monday between 8a.m. and 4:30p.m. Please follow the directions below to access the portal: 1.Access the email account you provided upon registration to the [facility].2.Look for an invitation email from [facility].3.Open the email and access the invitation link: Accept Invitation to [facility]4.Fill in the required delaney to create your account. Sign into www.[employer] with your username and password that you [...] you will allow to register on the [facility] Patient Portal for access to your information. You can also access the [facility] Patient Portal on the [employer]. Simply click on "Health Records" under "HealthData" and then click on the [employer] logo. HOW TO SAFELY DISPOSE OF PRESCRIPTION [...] Call your local pharmacy or go to [email or web address]://[email or web address] [email or web address] to find one close to you.3.Make use of household items: Use cat litter or old coffee grounds to dispose medications if other options arenot available. Mix your drugs with these household products, seal them in an airtight container andthrow it into the garbage. Call [facility]: [phone] to be sure your drugs can be [...] aware that I should contact my doctor. Patient/Forge Heater Signature: Date/Time: Relationship to Patient: Witness Name/Signature: Date/Time: [facility] [id number] Summary of episode note LYNDSAY LOPEZ :1980 Visit Date:03/17/2022 Your Visit Summary Your Diagnosis Malignant neoplasm of unspecified kidney, except renal pelvis, Metastatic renal cell carcinoma. S/PLeft cytoreductive nephrectomy 08/14/20. 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 There are many vaccine clinic locations within the [facility]. For locations and available times, please visit www.[email or web address]. It is important to note that some COVID mobile vaccine clinics are held outdoors and may be canceled in rainy orstormy conditions. To learn more about pediatric vaccinations (ages 5-11), we invite you to visit the [facility] webpage. https://www.[employer]al [employer].org/pages/1919-Bsbyk-Xnupsamxffy-Hpxphcnthi-Fjmgv-Hnx stions.htmlTo learn more about the COVID-19 vaccine, we invite you to visit the [facility] website for a list of frequently asked questions. https://[employer]/assets/Yqubznlr-bvj-Lvrbqcae/ovzwx-Ltjwpsz-Hucgncefte _Asked-Questions.pdf [facility] Patient Portal Access Instructions: Stay connected with your healthcare team and access your personal medical information anytime with the [facility] Patient Portal.If you would like a full copy of your medical records, please contact the [facility] Medical Records Department, Monday through Monday between 8a.m. and 4:30p.m. Please follow the directions below to access the portal: 1.Access the email account you provided upon registration to the hospital.2.Look for an invitation email from [facility].3.Open the email and access the invitation link: Accept Invitation to [facility]4.Fill in the required delaney to create your account. Sign into www.[employer] with your username and password that you [...] you will allow to register on the [facility] Patient Portal for access to your information. You can also access the [facility] Patient Portal on the [employer]. Simply click on "Health Records" under "HealthData" and then click on the [employer] logo. HOW TO SAFELY DISPOSE OF PRESCRIPTION [...] Call your local pharmacy or go to [email or web address] to find one close to you.3.Make use of household items: Use cat litter or old coffee grounds to dispose medications if other options arenot available. Mix your drugs with these household products, seal them in an airtight container andthrow it into the garbage. Call [facility]: [phone] to be sure your drugs can be [...] aware that I should contact my doctor. Patient/Forge Heater Signature: Date/Time: Relationship to Patient: Witness Name/Signature: Date/Time: [facility] [id number] Note ORIGINAL PROCEDURE: Ultrasound and fluoroscopic guided [...] Sign Date: 03/07/2022 3:32:38 PM Ordering Provider: [facility]01[facility]23-2023 Evaluation + Plan noteExtracted from: Title:IR [...] paper, which has been scanned into the [facility] PACS/RIS system. _ Future Appointments Appointment Date:03/08/2022 [...] CT Abdomen and Pelvis w/ contrast 08/18/21 [facility] 01-23-2023 Hospital Discharge instructions Patient Education 03/07/2022 11:40:16 Radiology- Port Placement (CUSTOM) TRAPPE Port Placement Discharge Instructions Interventional Radiology [facility] Imaging Services [address] [place] [address] Your physician has requested that you have [...] on their own in time. Pain Control: Gqpy-qcl-fcwkvif pain medication should be used for pain [...] instruction below: 8:00 am- 5:00 pm call [phone] After 5:00 pm call [phone] After 24 hours, contact the physician who ordered this procedure for you. Special Instructions: Follow Up Care 01/20/2022 14:10:01 With:BHVAIK TRIANA MD Address: [address] [place] [address] Hematology and [place] [address] [phone] When: Unknown Comments:Follow-up as scheduled [facility] 01-23-2023 Summary of episode note Discharge Instructions Thank you for allowing [facility] to assist you with your healthcare needs. The following is importantdischarge information regarding your hospital visit. Your Care Team PROSPER MANJARREZ DO What to do next Scheduled Follow-Up Appointments Appointment Type When With Where Contact InformationyyCT Abdomen and Pelvis w/ Contrast 3 03/08/2022 09:30 AM EST [facility] yyCT Chest w/ Contrast 3 03/08/2022 10:00 AM EST [facility] INF Labwork 03/17/2022 09:30 AM EST [...] MD When Why: Follow-up as scheduled Where: [facility] [address] [place] [address] [place] [address]- [phone] The Following Activity and Diet Have Been [...] medication providers or retail pharmacies. Education Materials TRAPPE Port Placement Discharge Instructions Interventional Radiology [facility] Imaging Services [address] [address] Your physician has requested that you have [...] on their own in time. Pain Control: Brvi-xky-eiivecr pain medication should be used for pain [...] instruction below: 8:00 am- 5:00 pm call [phone] After 5:00 pm call [phone] After 24 hours, contact the physician who ordered this procedure for you. Special Instructions: Additional Information VACCINATE! IT SAVES LIVES! Members of the community who have not yet received the COVID-19 vaccine and would like to receive it can visit one of [facility] vaccine clinics. There are many vaccine clinic locations within the [facility]. For locations and available times, please visit https://[email or web address]/. It is important to note that some COVID mobile vaccine clinics are held outdoors and may be canceled in rainy or stormy conditions. To learn more about pediatric vaccinations (ages 5-11), we invite you to visit the [facility] webpage. https://www.[facility].org/pages/7217-Jlnav-Inulapfidof-Vjlwqawzyp-Hvhur-Vjn stions.htmlTo learn more about the COVID-19 vaccine, we invite you to visit the [facility] website for a list of frequently asked questions. https://jackson.[facility]/assets/Jmoifdcj-ohg-Rqqindjx/wtzaq-Onssgkc-Igdajreyyb _Asked-Questions.pdf [facility] Patient Portal Access Instructions: Stay connected with your healthcare team and access your personal medical information anytime with the [facility] Patient Portal.If you would like a full copy of your medical records, please contact the [facility] Medical Records Department, Monday through Monday between 8a.m. and 4:30p.m. Please follow the directions below to access the portal: 1.Access the email account you provided upon registration to the [facility].2.Look for an invitation email from [facility].3.Open the email and access the invitation link: Accept Invitation to [facility]4.Fill in the required delaney to create your account. Sign into www.[employer] with your username and password that you [...] you will allow to register on the [facility] Patient Portal for access to your information. You can also access the [facility] Patient Portal on the [employer]. Simply click on "Health Records" under "HealthData" [...] Call your local pharmacy or go to http://bit.ly/2F9Gh9i to find one close to you.3.Make use of household items: Use cat litter or old coffee grounds to dispose medications if other options arenot available. Mix your drugs with these household products, seal them in an airtight container andthrow it into the garbage. Call [facility]: [phone] to be sure your drugs can be [...] aware that I should contact my doctor. Patient/Forge Heater Signature: Date/Time: Relationship to Patient: Witness Name/Signature: Date/Time: [facility] [id number] Note ORIGINAL PROCEDURE: Ultrasound and fluoroscopic guided [...] Sign Date: 03/07/2022 3:32:38 PM Ordering Provider: [facility]01-23-2023 Note IR Procedure Record Summary Primary Physician: ANDI SPENCER MD Finalized Date/Time: 03/07/22 11:07:10 Pt. Name: LYNDSAY LOPEZO.B./Sex: 1980 Male Med Rec #: [id number] Physician: Financial #: [id number] Pt. Type: S Room/Bed: [facility]/A Admit/Disch: 03/07/22 07:53:32 - Institution: Allergies identified [...] Insertion/Port SN Last Modified By: Gabi Geronimo Pound Keeper 03/07/22 11:04:50 Radiology Procedures- IR Entry 1 Procedure/Preference IR Tunneled Catheter Actual Procedure IR PORT PLACEMENT SN Card Insertion/Port SN Primary Procedure Yes Primary Surgeon ANDI SPENCER MD Anesthesia/Sedation Local Type Additional Procedure Times Start 03/07/22 10:39:00 Stop 03/07/22 11:04:00 Specialty Service SN Radiology Procedure EBL 2 mL Last Modified By: Gabi Geronimo Pound Keeper 03/07/22 11:04:54 Radiology Procedure Details - IR [...] rt chest Last Modified By: Gabi Geronimo Pound Keeper 03/07/22 11:03:46 General Case Data - IR [...] 11:04:00 Last Modified By: Gabi Geronimo R Pound Keeper 03/07/22 11:04:41 Immediate Post Procedure Note - [...] site marked, Present for Time Out Ansley Pound Keeper Kari Relevant images and A, Gabi Geronimo results are properly Pound KeeperPerlita Parks RN labeled and Lamonte appropriately displayed, Confirm/obtain preop antibiotic order., Alcohol based prep dry, Double verification of sterility indicators complete Instrument Sterility Team Members ANDI SPENCER MD, Verifying Sterility Renélosandra Pound Keeper Kari A Procedure IR Tunneled Catheter Insertion/Port SN Last Modified By: Gabi Geronimo Pound Keeper 03/07/22 11:00:33 Skin Prep- IR Entry 1 Procedure IR Tunneled Catheter Insertion/Port SN Skin Prep Prep Area Chest, Neck Side Right By Ansley Pound Keeper Kari A Prep Agents Chloraprep Hair Removal Method Clipped in OR Last Modified By: Gabi Geronimo Pound Keeper 03/07/22 10:59:36 Patient Positioning- IR Entry 1 Procedure IR Tunneled Catheter Body Position OP Supine Insertion/Port SN Feet Uncrossed? Yes Pressure Points Yes Checked Last Modified By: Gabi Geronimo Pound Keeper 03/07/22 10:59:36 Implants- IR Entry 1 Implant/Explant Implant Implant Description PORT MINI 8FR DIGNITY ATTACHABLE 1/EA [id number] Wasted? No Lot Number [id number] On Car Supervisor medcomp Size 8F Expiration Date 01/12/26 Implant [...] Radiology - Action Plan Outcomes Met? Yes [place] HENOK Bhat Completing Procedure Plan Last Modified By: HENOK Bhat 03/07/22 10:31:19 Case Comments Finalized By: Gabi Geronimo Pound Keeper Document Signatures Signed By: Gabi Geronimo 03/07/22 11:07 [facility] [id number] History and physical note IR PREPROCEDURE H&P [...] paper, which has been scanned into the [facility] PACS/RIS system. _ Digitally Signed by YADY BANKS PA-C on 03/07/2022 10:04 AM Digitally Signed by ROCKY ENGLISH MD on 03/07/2022 02:[address] [facility] [id number] Hospital Discharge instructions Patient Education 01/26/2022 11:17:52 [...] relieved by rest and mild pain reliever [id number] [employer]. [address] [place] [address]. All rights reserved. This information is not intended as a substitute for professional medical care. Always follow yourhealthcare professional's instructions. Follow Up Care 01/26/2022 11:00:39 With:[facility] Address: When:2-4 days With:PROSPER MANJARREZ DO Address: [place] [address]- [phone] When:2-4 days [facility] 12-14-2022 Emergency department Discharge summary Discharge Instructions Thank you for allowing [facility] to assist you with your healthcare needs. The following is importantdischarge information regarding your hospital visit. Diagnosis from Today's Visit Anxiety Anxiety What to Do Next Instructions from Your Care Team No qualifying data available. Post Acute Orders No qualifying data available. You Need to Schedule the Following Appointments Follow Up with [facility] When Within 2-4 days Where: Follow Up with PROSPER MANJARREZ DO When Within 2-4 days Where: [address] [place], [place] [id number]- [phone] Allergies penicillin (Swelling) Medications Please ask your [...] relieved by rest and mild pain reliever [phone] [employer]. [address] [place] [address]. All rights reserved. This information is not intended as a substitute for professional medical care. Always follow yourhealthcare professional's instructions. Additional Information VACCINATE! IT SAVES LIVES! Members of the community who have not yet received the COVID-19 vaccine and would like to receive it can visit one of [facility] vaccine clinics. There are many vaccine clinic locations within the [facility]. For locations and available times, please visit www.gettheshot.coronavirus.[place].org. It is important to note that some COVID mobile vaccine clinics are held outdoors and may be canceled in rainy orstormy conditions. To learn more about pediatric vaccinations (ages 5-11), we invite you to visit the [facility] webpage. https://www.[facility].org/pages/5977-Bisdp-Ullhhbwrhft-Zleqcmjcqq-Lfblv-Mas stions.htmlTo learn more about the COVID-19 vaccine, we invite you to visit the [employer] website for a list of frequently asked questions. https://[facility]/assets/Guemsidd-omq-Lgyvufef/mrsjd-Wpojgmu-Ovajuytsro _Asked-Questions.pdf [facility] Patient Portal Access Instructions: Stay connected with your healthcare team and access your personal medical information anytime with the [facility] Patient Portal. If you would like a full copy of your medical records please contact the [facility] Medical Records Department Monday through Monday between 8a.m. and 4:30p.m. Please follow the directions below to access the portal: 1.Access the email account you provided upon registration to the [facility].2.Look for an invitation email from [facility].3.Open the email and access the invitation link: Accept Invitation to [facility]4.Fill in the required delaney to create your account. Sign into www.[employer] Media with your username and password that you [...] you will allow to register on the [facility] Patient Portal for access to your information. You can also access the [facility] Patient Portal on the [employer] julia. Simply click on "Health Records" under [...] Call your local pharmacy or go to http://bit.Faraday Bicycles/[email or web address] to find one close to you.3.Make use of household items: Use cat litter or old coffee grounds to dispose medications if other options arenot available. Mix your drugs with these household products, seal them in an airtight container andthrow it into the garbage. Call [facility]: [phone] to be sure your drugs can be [...] aware that I should contact my doctor. Patient/Forge Heater Signature: Date/Time: Relationship to Patient: Witness Name/Signature: Date/Time: [facility]12-08-2022 Summary of episode note LYNDSAY LOPEZ [...] Final path - ccRCC withsarcomatoid features. 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 Tests Performed .Auto Differential .Estimated Glomerular Filtration Rate .Neutro Absolute BMP w/ Ionized Calcium ([facility]) CBC Cortisol Drawn in AM Free T3 Free T4 Hepatic Function Panel ([facility] [place]) LDH TSH Your Care Team Attending Physician [...] - 5.9 10^3/mcL BMP w/ Ionized Calcium ([facility] [place]) (01/20/2022) Glucose Level - 110 mg/dL Sodium [...] T4 - 1.07 ng/dL Hepatic Function Panel ([facility] [place]) (01/20/2022) Total Protein - 6.8 G/dL Albumin [...] to receive it can visit one of [facility] vaccine clinics. There are many vaccine clinic locations within the [facility]. For locations and available times, please visit www.gettheshot.coronavirus.[place].org. It is important to note that some COVID mobile vaccine clinics are held outdoors and may be canceled in rainy orstormy conditions. To learn more about pediatric vaccinations (ages 5-11), we invite you to visit the [facility] webpage. https://www.[employer].org/pages/5683-Jvhva-Helcihltags-Abzcufmqhf-Vemyp-Zap stions.htmlTo learn more about the COVID-19 vaccine, we invite you to visit the [facility] website for a list of frequently asked questions. https://[facility]ogo.org/assets/Qutvffsu-bwq-Frdhvput/uymdh-Ezarkhg-Sfxnsyvhgc _Asked-Questions.pdf [facility] Patient Portal Access Instructions: Stay connected with your healthcare team and access your personal medical information anytime with the [facility] Patient Portal.If you would like a full copy of your medical records, please contact the [facility] Medical Records Department, Monday through Monday between 8a.m. and 4:30p.m. Please follow the directions below to access the portal: 1.Access the email account you provided upon registration to the [facility].2.Look for an invitation email from [facility].3.Open the email and access the invitation link: Accept Invitation to [facility]4.Fill in the required delaney to create your account. Sign into www.[employer] with your username and password that you [...] you will allow to register on the [facility] Patient Portal for access to your information. You can also access the [facility] Patient Portal on the [employer]. Simply click on "Health Records" under "HealthData" and then click on the [employer] logo. HOW TO SAFELY DISPOSE OF PRESCRIPTION [...] Call your local pharmacy or go to [email or web address] to find one close to you.3.Make use of household items: Use cat litter or old coffee grounds to dispose medications if other options arenot available. Mix your drugs with these household products, seal them in an airtight container andthrow it into the garbage. Call [facility]: [phone] to be sure your drugs can be [...] aware that I should contact my doctor. Patient/Forge Heater Signature: Date/Time: Relationship to Patient: Witness Name/Signature: Date/Time: 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 S/P Left cytoreductive nephrectomy 08/14/20. Final path - ccRCC withsarcomatoid features. [facility] [place] [facility] drug therapy Tests Performed .Auto Differential [...] OV 12/29/2021 10:30 AM PROSPER CORCORAN DO [address] [id number] HEM ONC OV Follow Up w/Active Treatment [...] aware that I should contact my doctor. Patient/Forge Heater Signature: Date/Time: Relationship to Patient: Witness Name/Signature: Date/Time: [facility] [id number] Hospital Discharge instructions Follow Up Care 11/25/2021 14:49:17 With:Call Physician Referral Address:Unknown When: Unknown [facility] 08-10-2022 Summary of episode note Discharge Instructions [...] path - ccRCC with sarcomatoid features. [facility] [place] [facility] [place] drug [place], [facility] [place] drug [place], [facility] [place] [facility] drug [place], [facility] [place] [facility] drug [place], [facility] [place] [facility] drug therapy What to do next [...] to receive it can visit one of [facility] vaccine clinics. There are many vaccine clinic locations within the [facility]. For locations and available times, please visit https://gettheshot.coronavirus.[place].[facility]/. It is important to note that some COVID mobile vaccine clinics are held outdoors and may be canceled in rainy or stormy conditions. To learn more about pediatric vaccinations (ages 5-11), we invite you to visit the [facility] webpage. https://www.[facility].org/pages/7248-Qvcvo-Nkkqqrgnzti-Lywnfstfia-Pjmgm-Tdb stions.htmlTo learn more about the COVID-19 vaccine, we invite you to visit the [facility] website for a list of frequently asked questions. https://diogo.[employer]/assets/Wntpomse-hua-Lanaecrj/mbzyp-Txkwriu-Gdavtrocwg _Asked-Questions.pdf [facility] Patient Portal Access Instructions: Stay connected with your healthcare team and access your personal medical information anytime with the [facility] Patient Portal.If you would like a full copy of your medical records, please contact the [facility] Medical Records Department, Monday through Monday between 8a.m. and 4:30p.m. Please follow the directions below to access the portal: 1.Access the email account you provided upon registration to the [facility].2.Look for an invitation email from [facility].3.Open the email and access the invitation link: Accept Invitation to [facility]4.Fill in the required delaney to create your account. Sign into www.[employer] with your username and password that you [...] you will allow to register on the [facility] Patient Portal for access to your information. You can also access the [facility] Patient Portal on the [employer]. Simply click on "Health Records" under "[employer]" and then click on the [employer] logo. HOW TO SAFELY DISPOSE OF PRESCRIPTION [...] Call your local pharmacy or go to [email or web address] [email or web address] to find one close to you.3.Make use of household items: Use cat litter or old coffee grounds to dispose medications if other options arenot available. Mix your drugs with these household products, seal them in an airtight container andthrow it into the garbage. Call [facility]: [phone] to be sure your drugs can be [...] aware that I should contact my doctor. Patient/Forge Heater Signature: Date/Time: Relationship to Patient: Witness Name/Signature: Date/Time: [facility] [id number] Note ORIGINAL EXAMINATION: CT OF THE ABDOMEN [...] Sign Date: 09/15/2021 4:15:11 PM Ordering Provider: [facility]08-03-2022 Note ORIGINAL EXAMINATION: CT OF THE CHEST [...] Sign Date: 09/15/2021 2:49:24 PM Ordering Provider: [facility]08-03-2022 Note ORIGINAL EXAMINATION: CT OF THE ABDOMEN [...] Sign Date: 09/15/2021 4:15:11 PM Ordering Provider: [place] [address]-03-2022 Note ORIGINAL EXAMINATION: CT OF THE CHEST [...] Sign Date: 09/15/2021 2:49:24 PM Ordering Provider: [facility] [id number] Hospital Discharge instructions Patient Education 08/03/2021 11:29:20 [...] cloves at drugstores. Some pharmacies carry an odjo-qfq-jetiwnr "toothache kit." This contains a paste that you can put on the exposed tooth to make it less sensitive. Put a cold pack on your jaw over the sore area to help reduce pain. You may use uhyn-keo-saaurju medicine to ease pain, unless another medicine [...] healthcare provider Pus drains from the tooth [phone] [employer]. [address] [place] [address]. All rights reserved. This information is not intended as a substitute for professional medical care. Always follow yourhealthcare professional's instructions. Follow Up Care 08/03/2021 11:16:56 With:Dr. Iniguez Address: [phone] When:2-4 days [facility] Anesthesiology Consult note* MAR BERNARD MD: [...] list: Medical Alcohol abuse / SNOMED CT 40081578 / Confirmed Cigarette smoker Active / SNOMED CT 604661587 / Confirmed T11 vertebral fracture / SNOMED CT 1135909524 / Confirmed Marijuana user Active / SNOMED CT 8514694323 / Confirmed Metastatic renal cell carcinoma. S/P Left cytoreductive nephrectomy 08/14/20. Final path - ccRCC withsarcomatoid features. / SNOMED CT 4692792325 / Confirmed Lung nodule, multiple Active / SNOMED CT 6578493118 / Confirmed No chronic diseases present / SNOMED CT [id number] / Confirmed Left renal mass. 9.6-cm. With perinephric fat invasion. With lytic bony lesion and pulmonary nodules concerning for mets. BS, 07/2020 - neg. CT brain, 07/2020 - neg. S/P Radical nephrectomy 08/14/20. / SNOMED CT 519923926 / Confirmed Secondary malignant neoplasm of bone (disorder) Active / SNOMED CT 251157487 / Confirmed Tobacco abuse / SNOMED CT 156255924 / Confirmed Viral gastroenteritis / SNOMED CT 440176663 / Confirmed Resolved: Renal cell carcinoma (disorder) Active / SNOMED CT 7998066051 Canceled: Left renal mass. 9.6-cm. With perinephric fat invasion. With lytic bony lesion and pulmonary nodules concerning for mets. / SNOMED CT 272458168 Canceled: Left renal mass. 9.6-cm. With perinephric fat invasion. With lytic bony lesion and pulmonary nodules concerning for mets. CT brain, 07/2020 - neg. / SNOMED CT 847895053 Canceled: Left renal mass. 9.6-cm. With perinephric fat invasion. With lytic bony lesion and pulmonary nodules concerning for mets. BS, 07/2020 - neg. CT brain, 07/2020 - neg. / SNOMED CT 265945131, Active Problems (26) Alcohol abuse Anxiety Arthritis [...] Medical History: Active No chronic diseases present ([id number]) Resolved Renal cell carcinoma (disorder) Active (3627420847): Resolved. Family History: Kidney stone Mother Sister Rheumatoid arthritis Mother Hypertension Mother Father Heart attack Father Crohn's disease Sister HTN - Hypertension Mother Father Diabetes Father Procedure history: Tooth extraction ([id number]) on 08/28/2021 at 41 Years. Nephrectomy, including partial ureterectomy, any open approach including rib resection; radical, with regional lymphadenectomy and/or vena caval thrombectomy (07408) on 08/14/2020 at 40 Years. Tonsillectomy (861784543). Chemotherapy (904431674). Comments: 11/17/2020 9:50 HENOK Bucio 3 weeks ago Boost radiation therapy ([id number]). Comments: 11/17/2020 9:51 HENOK Bucio 11-17-20 Social [...] None Living situation: Home with assistance Primary Shot Polisher And Inspector: Father Safe place to go: Yes Lives [...] Resp Rate 20 br/min (AUG 09 11:19) HTO815 mmHg (AUG 09 11:19) DBPH 98mmHg (AUG 09 11:19) Measurements from flowsheet : Measurements 08/08/2022 13:17 EDT [place] Body Weight 70 kg Pain assessment: Pain [...] INR 1.3(WILLIAM 25)1.2(WILLIAM 20)1.3(WILLIAM 19) PTT C 123.0(WILLIAM 26)C 143.6(WILLIAM 25)H 64.7(WILLIAM 25)C 172.2(WILLIAM 25) [...] secretions Sputum Amount Small Sputum Color Light, [place] Sputum Consistency Thick Oxygen Therapy Venti-Mask Oxygen [...] Attendee SN - CAt - Role Performed RETAIL ADVERTISING ACCOUNT EXECUTIVE SN - CAt - Role Performed Procedure [...] (Modified) SN - CAt - Role Performed Oncology Research Rn (Modified) SN - CAt - Role Performed [...] Y[place]auer Sputum Amount Small Sputum Color Light, [place] Sputum Consistency Thick Oxygen Therapy Venti-Mask Oxygen [...] Type 0-10 Pain scale Nail Bed Color [place] Capillary Refill < 2 seconds Heart Sounds [...] intact Skin Turgor Non-Elastic Mucous Membrane Color [place] Mucous Membrane Description Moist Sensory Perception Haroon [...] Opening Response Dom[place] Spontaneously Best Motor Response [place] Obeys simple commands Best Verbal Response [place] Oriented [place] Coma Score 15 GERMAN Yes Left Pupil [...] Type 0-10 Pain scale Nail Bed Color [place] Capillary Refill < 2 seconds Dorsalis Pedis [...] grimaces Skin Symptoms Bruising All Extremity Description [place], Normal for ethnicity Skin Temperature Warm Temperature All Extremities Warm Skin Description [place], Dry Skin Integrity Not intact Skin Turgor Non-Elastic Mucous Membrane Color [place] Mucous Membrane Description Moist Continuous IV Infusions [...] Dominga Obeys simple commands Best Verbal Response [place] Oriented Dominga Coma Score 15 GERMAN Yes [...] Machine Model Kristen V60 BiPAP/CPAP Machine ID [id number] Estimated Leak 7 L/min Mask/Delivery Type Full [...] On and Limits Checked Nail Bed Color [place] Capillary Refill < 2 seconds Heart Sounds [...] Yellow Urine Description Clear All Extremity Description [place] Temperature All Extremities Warm Skin Description [place], Dry Mucous Membrane Color [place] Mucous Membrane Description Moist Implanted port Right [...] Detail Not Done: Task Duplication (Not Done) Dog Pound Attendant Details Form Not Done (Not Done) Sequential [...] On and Limits Checked Nail Bed Color [place] Capillary Refill < 2 seconds Heart Sounds [...] intact Skin Turgor Non-Elastic Mucous Membrane Color [place] Mucous Membrane Description Moist Groin Right Skin [...] Alert Aspiration Risk None Eye Opening Response [place] Spontaneously Best Motor Response [place] Obeys simple commands Best Verbal Response Dominga [...] in the morning. Person Reporting Result(s) Cindy Neal RN 08/08/2022 16:35 EDT Discharge To, Anticipated [...] Safety Room check performed 08/08/2022 13:17 EDT [place] Body Weight 70 kg Appetite Excellent Nutrition Plan of Care Dietitian follow up/monitor, Encourage PO feedings, Participate in team conference Nutrition Follow-Up Needed Yes Days until General Ledger Bookkeeper Follow Up Seven days Adult Nutrition Initial Asmt/Plan Form Adult Nutrition Initial Asmt/Plan Form Adult Nutrition Initial Assessment/Plan Adult Nutrition Assessment/Plan 08/08/2022 12:57 EDT Bed Bath Moderate assistance Skin Care Done Skin Care Product Applied Shampoo/Body wash (no rinse) Sachi Care Moderate assistance Linen Change Done 08/08/2022 11:46 EDT Notify date/time 08/08/2022 11:46 Provider Notified MIKE RIVERA MD Notification Method [...] On and Limits Checked Nail Bed Color [place] Capillary Refill < 2 seconds Heart Sounds [...] grimaces Skin Symptoms Bruising All Extremity Description [place] Skin Temperature Warm Temperature All Extremities Warm Skin Description [place] Skin Integrity Not intact Skin Turgor Non-Elastic Mucous Membrane Color [place] Mucous Membrane Description Moist Groin Right Skin [...] Arousable with minimal stimulation Eye Opening Response [place] Spontaneously Best Motor Response Dominga Obeys simple commands Best Verbal Response [place] Oriented [place] Coma Score 15 GERMAN Yes Left Pupil [...] Transport Mode Order Detail MTT with Monitor Dog Pound Attendant Details Form Dog Pound Attendant Details Form 08/08/2022 9:45 EDT Apical Heart [...] On and Limits Checked Nail Bed Color [place] Capillary Refill < 2 seconds Heart Sounds [...] resting/crying Skin Symptoms Bruising All Extremity Description [place], Normal for ethnicity Skin Temperature Warm Temperature All Extremities Warm Skin Description [place], Normal for ethnicity Skin Integrity Not intact Skin Turgor Non-Elastic Mucous Membrane Color [place] Mucous Membrane Description Moist Sensory Perception Haroon [...] Alert Aspiration Risk None Eye Opening Response [place] Spontaneously Best Motor Response Dominga Obeys simple commands Best Verbal Response [place] Oriented [place] Coma Score 15 GERMAN Yes Left Pupil [...] Mod I Therapy Patient Monitors Pulse Oximeter, monitoring analyst Basic Mobility Raw Score 24 Daily Activity [...] Transport Mode Order Detail MTT with Monitor Dog Pound Attendant Details Form Dog Pound Attendant Details Form 08/08/2022 4:19 EDT Mechanical VTE [...] Arousable with minimal stimulation Eye Opening Response [place] Spontaneously Best Motor Response Dominga Obeys simple [...] Machine Model Kristen V60 BiPAP/CPAP Machine ID [id number] Estimated Leak 4 L/min Mask/Delivery Type Full [...] Rhythm Sinus tachycardia Monitoring Lead II, V5/MCL5 AK Interval 0.12 second(s) QRS Duration 0.09 second(s) [...] Oriented x 4 . Assessment and Plan [place] [employer] of Anesthesiologists (ASA) physical status classification: [...] VERIFY Event Display: Anesthesiology Consultation Authored Date: [id number] Patient: LYNDSAY LOPEZ Age: 42 years Sex: [...] VERIFY Event Display: Anesthesiology Consultation Authored Date: [id number] Patient: LYNDSAY LOPEZ Age: 42 years Sex: [...] pain, # 90 tab(s), 0 Refill(s), Pharmacy: [facility]/pharmacy #[id number], Renal cancer, 172.7, cm, 06/09/22 11:10:00 EDT, [...] list: Medical Alcohol abuse / SNOMED CT 47874081 / Confirmed Cigarette smoker Active / SNOMED CT 810345384 / Confirmed T11 vertebral fracture / SNOMED CT 0787273678 / Confirmed Marijuana user Active / SNOMED CT 5209886166 / Confirmed Metastatic renal cell carcinoma. S/P Left cytoreductive nephrectomy 08/14/20. Final path - ccRCC withsarcomatoid features. / SNOMED CT 7478973127 / Confirmed Lung nodule, multiple Active / SNOMED CT 2003561943 / Confirmed No chronic diseases present / SNOMED CT [id number] / Confirmed Left renal mass. 9.6-cm. With perinephric fat invasion. With lytic bony lesion and pulmonary nodules concerning for mets. BS, 07/2020 - neg. CT brain, 07/2020 - neg. S/P Radical nephrectomy 08/14/20. / SNOMED CT 650499967 / Confirmed Secondary malignant neoplasm of bone (disorder) Active / SNOMED CT 852114321 / Confirmed Tobacco abuse / SNOMED CT 362579921 / Confirmed Viral gastroenteritis / SNOMED CT 957470555 / Confirmed, Active Problems (26) Alcohol abuse [...] Medical History: Active No chronic diseases present ([id number]) Resolved Renal cell carcinoma (disorder) Active (8361440500): Resolved. Family History: Kidney stone Mother Sister Rheumatoid arthritis Mother Hypertension Mother Father Heart attack Father Crohn's disease Sister HTN - Hypertension Mother Father Diabetes Father Procedure history: Tooth extraction ([id number]) on 08/28/2021 at 41 Years. Nephrectomy, including partial ureterectomy, any open approach including rib resection; radical, with regional lymphadenectomy and/or vena caval thrombectomy (29746) on 08/14/2020 at 40 Years. Tonsillectomy (529129936). Chemotherapy (122216666). Comments: 11/17/2020 9:50 HENOK Bucio 3 weeks ago Boost radiation therapy ([id number]). Comments: 11/17/2020 9:51 HENOK Bucio 11-17-20 Social [...] None Living situation: Home with assistance Primary Shot Polisher And Inspector: Father Safe place to go: Yes Lives [...] Transport Mode Order Detail MTT with Monitor Dog Pound Attendant Details Form Dog Pound Attendant Details Form 08/08/2022 4:19 EDT Mechanical VTE [...] Arousable with minimal stimulation Eye Opening Response [place] Spontaneously Best Motor Response [place] Obeys simple commands Best Verbal Response Dominga Oriented [place] Coma Score 15 GERMAN Yes Affect/Behavior Appropriate, [...] L/min BiPAP/CPAP Mode BiPAP BiPAP/CPAP Machine Model [employer] V60 BiPAP/CPAP Machine ID [id number] Estimated Leak 4 L/min Mask/Delivery Type Full [...] Rhythm Sinus tachycardia Monitoring Lead II, V5/MCL5 AK Interval 0.12 second(s) QRS Duration 0.09 second(s) [...] Rhythm Sinus tachycardia Monitoring Lead II, V1/MCL1 AK Interval 0.10 second(s) QRS Duration 0.09 second(s) [...] Machine Model Kristen V60 BiPAP/CPAP Machine ID [id number] Estimated Leak 0 L/min Mask/Delivery Type Full [...] indicates understanding Ed-Breathing Techniques Needs further teaching [id number] Care/Appointment Needs further teaching Edu-Med Generic/Brand Name,Purpose,Action [...] Transport Mode Order Detail MTT with Monitor Dog Pound Attendant Details Form Dog Pound Attendant Details Form 08/07/2022 21:27 EDT BiPAP/CPAP Machine [...] Not Done: See ICU flow (Not Done) Dog Pound Attendant Details Form Not Done (Not Done) Sequential [...] On and Limits Checked Nail Bed Color [place] Capillary Refill < 2 seconds Heart Sounds ICU S1S2 Heart Rhythm Regular Dorsalis Pedis Pulse, Left 1+ Thready Dorsalis Pedis Pulse, Right 1+ Thready Posttibial Pulse, Left 1+ Thready Posttibial Pulse, Right 1+ Thready Radial Pulse, Left 2+ Normal Radial Pulse, Right 2+ Normal Leg edema Edema Ratin+ mild/4mm Cardiac Rhythm Sinus tachycardia Monitoring Lead II, V1/MCL1 AK Interval 0.13 second(s) QRS Duration 0.07 second(s) [...] grimaces Skin Symptoms Bruising All Extremity Description [place] Skin Temperature Warm Temperature All Extremities Warm Skin Description Normal for ethnicity Skin Integrity Not intact Skin Turgor Non-Elastic Mucous Membrane Color [place] Mucous Membrane Description Moist Groin Right Skin [...] Opening Response Dom[place]a Spontaneously Best Motor Response [place] Obeys simple commands Best Verbal Response [place] Oriented [place] Coma Score 15 GERMAN Yes Left Pupil [...] On and Limits Checked Nail Bed Color [place] Capillary Refill < 2 seconds Heart Sounds ICU S1S2 Heart Rhythm Regular Dorsalis Pedis Pulse, Left 2+ Normal Dorsalis Pedis Pulse, Right 2+ Normal Posttibial Pulse, Left 1+ Thready Posttibial Pulse, Right 1+ Thready Radial Pulse, Left 2+ Normal Radial Pulse, Right 2+ Normal Cardiac Rhythm Sinus tachycardia Monitoring Lead II, V5/MCL5 AK Interval 0.13 second(s) QRS Duration 0.1 second(s) [...] intact Skin Turgor Non-Elastic Mucous Membrane Color [place] Mucous Membrane Description Moist Sensory Perception Haroon [...] stimulation Aspiration Risk None Eye Opening Response [place] To voice Best Motor Response [place] Obeys simple commands Best Verbal Response Dominga Oriented [place] Coma Score 14 GERMAN Yes Left Pupil [...] On and Limits Checked Nail Bed Color [place] Capillary Refill < 2 seconds Heart Sounds [...] Skin Integrity Not intact Mucous Membrane Color [place] Mucous Membrane Description Moist Groin Right Skin [...] Transport Mode Order Detail MTT with Monitor Dog Pound Attendant Details Form Dog Pound Attendant Details Form 08/07/2022 1:29 EDT heparin Begin [...] Machine Model Kristen V60 BiPAP/CPAP Machine ID [id number] Estimated Leak 11 L/min Mask/Delivery Type Full face mask Mask Size Large Patient Tolerance BiPAP/CPAP Fair Nares Condition on BIPAP/CPAP No breakdown noted Protective Dressing in Place Yes Inspiratory Pressure 14 cmH20 Expiratory Pressure 5 cmH20 . Assessment and Plan [place] Society of Anesthesiologists (ASA) physical status classification: [...] NORMA DAUGHERTY DO on 08/08/2022 08:[address] [facility] Evaluation + Plan note Future Appointments Appointment [...] Spine Thoracic w/ + w/o Contrast 12/31/20 [facility] evaluation + Plan note Future Appointments Appointment [...] Date:01/06/2021 10:00:00 AM Scheduled Provider:LIAN FUNG MD Location:[place] [facility] Appointment Type:PALL OV Follow Up Appointment [...] CT Abdomen and Pelvis w/ contrast 12/30/20 [facility] Evaluation + Plan note Future Appointments Appointment Date:12/31/2020 10:00:00 AM Scheduled Provider: Location:[facility] Appointment Type:MRI Spine Thoracic w/ + w/o Contrast Appointment Date:01/06/2021 10:00:00 AM Scheduled Provider:LIAN FUNG MD Location:[facility] Appointment Type:PALL OV Follow Up Appointment Date:01/06/2021 10:00:00 AM Scheduled Provider:BHAVIK TRIANA MD Location:[facility] Appointment Type:[facility] OV Follow Up w/Active Treatment Appointment Date:01/06/2021 10:30:00 AM Scheduled Provider: Location:[facility] Appointment Type:[facility] Chemo Appointment Date:01/15/2021 08:50:00 AM Scheduled Provider:PROSPER MANJARREZ DO Location:[facility] Appointment Type:PC OV Follow Up Future Scheduled Tests Laboratory* Creatinine 12/17/20 * Lactate Dehydrogenase 01/06/21 * Complete Blood Count 01/06/21 * Complete Metabolic Panel 01/06/21 Radiology* CT Abdomen w/ Contrast 10/16/20 * CT Thorax w/ Contrast 10/16/20 * MRI Thorax w/ Contrast 09/28/20 * MRI Spine Thoracic w/ + w/o Contrast 12/31/20 [facility] Evaluation + Plan note Future Appointments Appointment Date:01/15/2021 08:50:00 AM Scheduled Provider:PROSPER MANJARREZ DO Location:[facility] Appointment Type:PC OV Follow Up Appointment Date:01/27/2021 10:00:00 AM Scheduled Provider:BHAVIK TRIANA MD Location:[facility] Appointment Type:[facility] OV Follow Up w/Active Treatment Appointment Date:01/27/2021 10:30:00 AM Scheduled Provider: Location:[facility] Appointment Type:[facility] Chemo Appointment Date:02/04/2021 11:15:00 AM Scheduled Provider:PAMELA MEI MD Location:[facility] Appointment Type:NS GAUGER CHIEF Appointment Date:03/10/2021 11:00:00 AM Scheduled Provider:LIAN FUNG MD Location:[place] [facility] Appointment Type:PALL OV Follow Up Future Scheduled Tests Laboratory* Creatinine 12/17/20 * Lactate Dehydrogenase 01/27/21 * Complete Blood Count 01/27/21 * Complete Metabolic Panel 01/27/21 Radiology* CT Abdomen w/ Contrast 10/16/20 * CT Thorax w/ Contrast 10/16/20 * MRI Thorax w/ Contrast 09/28/20 * MRI Spine Thoracic w/ + w/o Contrast 12/31/20 [facility] Evaluation + Plan note Future Appointments Appointment Date:02/04/2021 11:15:00 AM Scheduled Provider:PAMELA MEI MD Location:[facility] Appointment Type:NS GAUGER CHIEF Appointment Date:02/24/2021 09:00:00 AM Scheduled Provider:BHAVIK TRIANA MD Location:[facility] Appointment Type:[facility] OV Follow Up w/Active Treatment Appointment Date:02/24/2021 09:30:00 AM Scheduled Provider: Location:[facility] Appointment Type:[facility] Chemo Appointment Date:03/10/2021 11:00:00 AM Scheduled Provider:LIAN FUNG MD Location:[place] [facility] Appointment Type:PALL OV Follow Up Future Scheduled Tests Laboratory* Cortisol, Free Serum 02/17/21 * Creatinine 12/17/20 * Lactate Dehydrogenase 02/17/21 * Thyroid Stimulating Hormone 02/17/21 * Complete Blood Count 02/17/21 * Complete Metabolic Panel 02/17/21 Radiology* CT Abdomen w/ Contrast 10/16/20 * CT Thorax w/ Contrast 10/16/20 * MRI Thorax w/ Contrast 09/28/20 * MRI Spine Thoracic w/ + w/o Contrast 12/31/20 [facility] Evaluation + Plan note Future Appointments Appointment [...] Spine Thoracic w/ + w/o Contrast 12/31/20 [facility] Evaluation + Plan note Future Appointments Appointment Date:03/10/2021 11:00:00 AM Scheduled Provider:LIAN FUNG MD Location:[place] [facility] Appointment Type:PALL OV Follow Up Appointment [...] Spine Thoracic w/ + w/o Contrast 12/31/20 [facility] Evaluation + Plan note Future Appointments Appointment Date:03/18/2021 11:30:00 AM Scheduled Provider:LIAN FUNG MD Location:[place] [facility] Appointment Type:Telephone Appointment Date:04/07/2021 09:30:00 AM Scheduled Provider:BHAIVK TRIANA MD Location:[facility] Appointment Type:[facility] ONC [...] Spine Thoracic w/ + w/o Contrast 12/31/20 [facility] Evaluation + Plan note Future Appointments Appointment Date:04/22/2021 11:00:00 AM Scheduled Provider:LIAN FUNG MD Location:[place] [facility] Appointment Type:Telephone Appointment Date:04/28/2021 10:00:00 AM [...] Spine Thoracic w/ + w/o Contrast 12/31/20 [facility] Evaluation + Plan note Future Appointments Appointment [...] Spine Thoracic w/ + w/o Contrast 12/31/20 [facility] Evaluation + Plan note Future Appointments Appointment Date:06/02/2021 09:00:00 AM Scheduled Provider:BHAVIK TRIANA MD Location:[facility] Appointment Type:[facility] OV Follow Up w/Active Treatment Appointment Date:06/02/2021 09:30:00 AM Scheduled Provider: Location:[facility] Appointment Type:[facility] Chemo: Infusion 120 min (2 hours) Appointment Date:06/03/2021 11:30:00 AM Scheduled Provider:LIAN FUNG MD Location:[place] [facility] Appointment Type:Telephone Future Scheduled Tests Laboratory* [...] Spine Thoracic w/ + w/o Contrast 12/31/20 [facility] Evaluation + Plan note Future Appointments Appointment Date:06/03/2021 11:30:00 AM Scheduled Provider:LIAN FUNG MD Location:[place] [facility] Appointment Type:Telephone Appointment Date:06/30/2021 09:15:00 AM [...] Spine Thoracic w/ + w/o Contrast 12/31/20 [facility] Evaluation + Plan note Future Appointments Appointment [...] Spine Thoracic w/ + w/o Contrast 12/31/20 [facility] Evaluation + Plan note Future Appointments Appointment [...] Date:09/01/2021 10:30:00 AM Scheduled Provider:LIAN FUNG MD Location:[place] [facility] Appointment Type:PALL OV Follow Up Future [...] Spine Thoracic w/ + w/o Contrast 12/31/20 [facility] Evaluation + Plan note Future Appointments [...] Spine Thoracic w/ + w/o Contrast 12/31/20 [facility] Evaluation + Plan note Future Appointments [...] Spine Thoracic w/ + w/o Contrast 12/31/20 [facility] Evaluation + Plan note Future Appointments Appointment [...] Spine Thoracic w/ + w/o Contrast 12/31/20 [facility] Evaluation + Plan note Future Appointments Appointment Date:02/03/2022 02:30:00 PM Scheduled Provider:LIAN FUNG MD Location:[place] [facility] Appointment Type:Telephone Appointment Date:02/17/2022 09:15:00 AM [...] CT Abdomen and Pelvis w/ contrast 08/18/21 [facility] Evaluation + Plan note Future Appointments Appointment Date:03/17/2022 09:30:00 AM Scheduled Provider: Location:[facility] Appointment Type:[facility] Labwork Appointment Date:03/17/2022 10:15:00 AM Scheduled Provider:BHAVIK TRIANA MD Location:[facility] Appointment Type:[facility] OV Follow Up w/Active Treatment Appointment Date:03/17/2022 10:45:00 AM Scheduled Provider: Location:[facility] Appointment Type:[facility] Chemo: Infusion 120 min (2 hours) Appointment Date:03/17/2022 11:00:00 AM Scheduled Provider:LIAN FUNG MD Location:[place] [facility] Appointment Type:PALL OV Follow Up Appointment [...] CT Abdomen and Pelvis w/ contrast 08/18/21 [facility] Evaluation + Plan note Future Appointments [...] Date:05/12/2022 11:00:00 AM Scheduled Provider:LIAN FUNG MD Location:[place] [facility] Appointment Type:PALL OV Follow Up Future [...] CT Abdomen and Pelvis w/ contrast 08/18/21 [facility] Evaluation + Plan note Future Appointments Appointment Date:06/09/2022 09:15:00 AM Scheduled Provider: Location:[facility] Appointment Type:INF Labwork Appointment Date:06/09/2022 10:00:00 AM Scheduled Provider:BHAVIK TRIANA MD Location:[facility] Appointment Type:HEM ONC OV Follow Up w/Active Treatment Appointment Date:06/09/2022 10:30:00 AM Scheduled Provider: Location:[facility] Appointment Type:INF Chemo: Infusion 120 min (2 hours) Appointment Date:07/07/2022 11:00:00 AM Scheduled Provider:LIAN FUNG MD Location:[place] [facility] Appointment Type:PALL OV Follow Up Future Scheduled Tests Laboratory* Cortisol Level 06/09/22 * Lactate Dehydrogenase 06/09/22 * Thyroid Stimulating Hormone 06/09/22 * Free T4 06/09/22 * Complete Blood Count 06/09/22 * Free T3 06/09/22 * Complete Metabolic Panel 06/09/22 Radiology* CT Thorax w/ Contrast 08/18/21 * XR Shoulder Minimum 2 Views Right 12/08/21 * CT Abdomen and Pelvis w/ contrast 08/18/21 [facility] Evaluation + Plan note Future Appointments Appointment Date:07/07/2022 08:15:00 AM Scheduled Provider: Location:[facility] Appointment Type:INF Labwork Appointment Date:07/07/2022 09:00:00 AM Scheduled Provider:BHAVIK TRIANA MD Location:[facility] Appointment Type:[facility] ONC OV Follow Up w/Active Treatment Appointment Date:07/07/2022 09:30:00 AM Scheduled Provider: Location:[facility] Appointment Type:INF Chemo: Infusion 120 min (2 hours) Appointment Date:07/07/2022 11:00:00 AM Scheduled Provider:LIAN FUNG MD Location:[place] [facility] Appointment Type:PALL OV Follow Up Future Scheduled Tests Laboratory* Cortisol Level 07/07/22 * Lactate Dehydrogenase 07/07/22 * Thyroid Stimulating Hormone 07/07/22 * Free T4 07/07/22 * Complete Blood Count 07/07/22 * Free T3 07/07/22 * Complete Metabolic Panel 07/07/22 Radiology* CT Thorax w/ Contrast 08/18/21 * XR Shoulder Minimum 2 Views Right 12/08/21 * CT Abdomen and Pelvis w/ contrast 08/18/21 [facility] Evaluation + Plan note Future Appointments Appointment [...] Date:09/01/2022 11:00:00 AM Scheduled Provider:LIAN FUNG MD Location:[place] [facility] Appointment Type:PALL OV Follow Up Future Scheduled Tests Laboratory* Cortisol Level 08/04/22 * Lactate Dehydrogenase 08/04/22 * Thyroid Stimulating Hormone 08/04/22 * Free T4 08/04/22 * Complete Blood Count 08/04/22 * Free T3 08/04/22 * Complete Metabolic Panel 08/04/22 Radiology* CT Thorax w/ Contrast 08/18/21 * XR Shoulder Minimum 2 Views Right 12/08/21 * CT Abdomen and Pelvis w/ contrast 08/18/21 [facility] Evaluation + Plan note Future Appointments Appointment Date:10/20/2022 10:30:00 AM Scheduled Provider:PROSPER MANJARREZ DO Location:[facility] Appointment Type:PC OV Appointment Date:10/24/2022 02:00:00 PM [...] XR Shoulder Minimum 2 Views Right 12/08/21 [facility] evaluation + Plan note Future Appointments Appointment [...] XR Shoulder Minimum 2 Views Right 12/08/21 [facility] evaluation + Plan note Future Appointments Appointment Date:11/24/2022 09:45:00 AM Scheduled Provider: Location:[facility] Appointment Type:INF Labwork Appointment Date:11/24/2022 10:30:00 AM Scheduled Provider:BHAVIK TRIANA MD Location:[facility] Appointment Type:HEM ONC OV Follow Up w/Active Treatment Appointment Date:11/24/2022 11:00:00 AM Scheduled Provider: Location:[facility] Appointment Type:INF Chemo: Infusion 120 min (2 hours) Appointment Date:11/24/2022 11:30:00 AM Scheduled Provider:LIAN FUNG MD Location:[place] [facility] Appointment Type:PALL OV Follow Up Future Scheduled Tests Laboratory* Cortisol Level 11/24/22 * Lactate Dehydrogenase 11/24/22 * Thyroid Stimulating Hormone 11/24/22 * Free T4 11/24/22 * Complete Blood Count 11/24/22 * Free T3 11/24/22 * Complete Metabolic Panel 11/24/22 Radiology* XR Shoulder Minimum 2 Views Right 12/08/21 [facility] Evaluation + Plan note Future Appointments Appointment Date:12/01/2022 01:00:00 PM Scheduled Provider:LIAN FUNG MD Location:[place] [facility] Appointment Type:Telephone Appointment Date:12/22/2022 09:30:00 AM [...] XR Shoulder Minimum 2 Views Right 12/08/21 [facility] Evaluation + Plan note Future Appointments Appointment [...] Date:01/19/2023 11:30:00 AM Scheduled Provider:LIAN FUNG MD Location:[place] [facility] Appointment Type:PALL OV Follow Up Future [...] XR Shoulder Minimum 2 Views Right 12/08/21 [facility] Evaluation + Plan note Future Appointments Appointment Date:02/16/2023 09:15:00 AM Scheduled Provider: Location:[facility] Appointment Type:INF Labwork Appointment Date:02/16/2023 10:00:00 AM Scheduled Provider:BHAVIK TRIANA MD Location:[facility] Appointment Type:HEM ONC OV Follow Up w/Active Treatment Appointment Date:02/16/2023 10:30:00 AM Scheduled Provider: Location:[facility] Appointment Type:INF Chemo: Infusion 120 min (2 hours) Appointment Date:03/16/2023 10:00:00 AM Scheduled Provider:LIAN FUNG MD Location:[place] [facility] Appointment Type:PALL OV Follow Up Future Scheduled Tests Laboratory* Cortisol Level 02/16/23 * Lactate Dehydrogenase 02/16/23 * Thyroid Stimulating Hormone 02/16/23 * Free T4 02/16/23 * Complete Blood Count 02/16/23 * Free T3 02/16/23 * Complete Metabolic Panel 02/16/23 [facility] Evaluation + Plan note Future Appointments Appointment Date:03/09/2023 10:30:00 AM Scheduled Provider: Location:[facility] Appointment Type:CT Chest w/o Contrast Appointment Date:03/09/2023 11:00:00 AM Scheduled Provider: Location:[facility] Appointment Type:CT Abdomen/Pelvis w/Oral Contrast Only Appointment Date:03/16/2023 09:45:00 AM Scheduled Provider: Location:[facility] Appointment Type:INF Labwork Appointment Date:03/16/2023 10:00:00 AM Scheduled Provider:LIAN FUNG MD Location:[place] [facility] Appointment Type:PALL OV Follow Up Appointment [...] 03/09/23 * CT Thorax w/o Contrast 03/09/23 [facility] Evaluation + Plan note Future Appointments Appointment Date:07/27/2023 02:15:00 PM Scheduled Provider:BHAVIK TRIANA MD Location:[facility] Appointment Type:HEM ONC OV Follow Up Appointment Date:07/28/2023 10:20:00 AM Scheduled Provider:PROSPER MANJARREZ DO Location:[facility] Appointment Type:PC OV Future Scheduled Tests Laboratory* Cortisol Level 03/16/23 * Lactate Dehydrogenase 03/16/23 * Thyroid Stimulating Hormone 03/16/23 * Free T4 03/16/23 * Complete Blood Count 03/16/23 * Free T3 03/16/23 * Complete Metabolic Panel 03/16/23 Radiology* CT Abdomen/Pelvis w/Oral Contrast Only 03/09/23 * CT Thorax w/o Contrast 03/09/23 [facility] Evaluation + Plan note Future Appointments Appointment Date:07/28/2023 10:20:00 AM Scheduled Provider:PROSPER MANJARREZ DO Location:[facility] Appointment Type:PC OV Appointment Date:08/09/2023 09:00:00 AM Scheduled Provider:LIAN FUNG MD Location:[place] [facility] Appointment Type:PALL OV Follow Up Appointment [...] 03/09/23 * CT Thorax w/o Contrast 03/09/23 [facility] Evaluation + Plan note Future Appointments Appointment Date:09/14/2023 01:30:00 PM Scheduled Provider:LIAN FUNG MD Location:[place] [facility] Appointment Type:PALL OV Follow Up Appointment Date:10/19/2023 01:30:00 PM Scheduled Provider:BHAVIK TRIANA MD Location:[facility] Appointment Type:[facility]M ONC OV Follow Up w/Active Treatment Appointment Date:11/30/2023 03:30:00 PM Scheduled Provider:PROSPER MANJARREZ DO Location:[facility] Appointment Type:PC Wellness Annual Future [...] CT Abdomen and Pelvis w/ contrast 10/12/23 [facility] Evaluation + Plan note Future Appointments Appointment Date:09/14/2023 01:30:00 PM Scheduled Provider:LIAN FUNG MD Location:[place] [facility] Appointment Type:PALL OV Follow Up Appointment [...] 03:30:00 PM Scheduled Provider:PROSPER MANJARREZ DO Location:[facility] Appointment Type:PC Wellness Annual Diagnostic Tests Pending [...] CT Abdomen and Pelvis w/ contrast 10/12/23 [facility] Evaluation + Plan note Future Appointments [...] Date:11/30/2023 03:30:00 PM Scheduled Provider:PROSPER MANJARREZ DO Location:[facility] Appointment Type:PC Wellness Annual Future [...] CT Abdomen and Pelvis w/ contrast 10/12/23 [facility] Evaluation + Plan note Future Appointments Appointment Date:10/18/2023 03:45:00 PM Scheduled Provider: Location:[facility] Appointment Type:PC Nurse Protime Appointment [...] Date:11/30/2023 03:30:00 PM Scheduled Provider:PROSPER MANJARREZ DO Location:[facility] Appointment Type:PC Wellness Annual Future [...] 03/09/23 * CT Thorax w/o Contrast 03/09/23 [facility] Evaluation + Plan note Future Appointments Appointment Date:11/01/2023 02:15:00 PM Scheduled Provider: Location:[facility] Appointment Type:PC Nurse Protime Appointment Date:11/16/2023 10:30:00 AM Scheduled Provider:EZEQUIEL LEAL Location:[facility] Appointment Type:HEM ONC OV Follow Up w/Active Treatment Appointment Date:11/16/2023 01:30:00 PM Scheduled Provider:REILLY COLEMAN Location:[place] [facility] Appointment Type:PALL OV Follow Up Appointment Date:11/17/2023 10:00:00 AM Scheduled Provider: Location:[facility] Appointment Type:CV OV [facility] Appointment Date:11/30/2023 03:30:00 PM Scheduled Provider:PROSPER MANJARREZ DO Location:[facility] Appointment Type:PC Wellness Annual Future [...] 03/09/23 * CT Thorax w/o Contrast 03/09/23 [facility] Evaluation + Plan note Future Appointments Appointment Date:11/15/2023 02:15:00 PM Scheduled Provider: Location:[facility] Appointment Type:PC Nurse Protime Appointment [...] Date:11/30/2023 03:30:00 PM Scheduled Provider:PROSPER MANJARREZ DO Location:[facility] Appointment Type:PC Wellness Annual Appointment Date:12/06/2023 11:00:00 AM Scheduled Provider: Location:[facility] Appointment Type:CV OV CHF Future [...] 03/09/23 * CT Thorax w/o Contrast 03/09/23 [facility] Evaluation + Plan note Future Appointments Appointment Date:11/29/2023 02:15:00 PM Scheduled Provider: Location:[facility] Appointment Type:PC Nurse Protime Appointment Date:11/30/2023 03:30:00 PM Scheduled Provider:PROSPER MANJARREZ DO Location:[facility] Appointment Type:PC Wellness Annual Appointment Date:12/06/2023 11:00:00 AM Scheduled Provider: Location:[facility] Appointment Type:CV OV CHF Appointment Date:12/14/2023 [...] 03/09/23 * CT Thorax w/o Contrast 03/09/23 [facility] Evaluation + Plan note Future Appointments Appointment Date:12/06/2023 11:00:00 AM Scheduled Provider: Location:[facility] Appointment Type:CV OV CHF Appointment Date:12/14/2023 [...] Up Appointment Date:12/27/2023 02:15:00 PM Scheduled Provider: Location:[facility] Appointment Type:PC Nurse Protime Future [...] 03/09/23 * CT Thorax w/o Contrast 03/09/23 [facility] Evaluation + Plan note Future Appointments Appointment Date:12/27/2023 10:45:00 AM Scheduled Provider: Location:[facility] Appointment Type:CV OV CHF Appointment Date:12/27/2023 02:15:00 PM Scheduled Provider: Location:[facility] Appointment Type:PC Nurse Protime Appointment Date:01/15/2024 10:00:00 AM Scheduled Provider: Location:[facility] Appointment Type:yyCT ABD and Pelvis w/o Contrast Appointment Date:01/15/2024 10:30:00 AM Scheduled Provider: Location:[facility] Appointment Type:yyCT Chest w/o Contrast Appointment Date:01/25/2024 09:15:00 AM Scheduled Provider: Location:[facility] Appointment Type:INF/OSP Labwork Appointment Date:01/25/2024 09:30:00 AM Scheduled Provider:LIAN FUNG MD Location:[place] [facility] Appointment Type:PALL OV Follow Up Appointment [...] CT Abdomen and Pelvis w/o contrast 01/15/24 [facility] Evaluation + Plan note Future Appointments Appointment Date:01/22/2024 11:15:00 AM Scheduled Provider: Location:[facility] Appointment Type:CV OV Appointment Date:01/24/2024 02:15:00 PM Scheduled Provider: Location:[facility] Appointment Type:PC Nurse Protime Appointment Date:01/25/2024 08:00:00 AM Scheduled Provider:PROSPER MANJARREZ DO Location:[facility] Appointment Type:PC OV Appointment Date:01/25/2024 [...] CT Abdomen and Pelvis w/o contrast 01/11/24 [facility] Evaluation + Plan note Future Appointments [...] Date:11/30/2023 03:30:00 PM Scheduled Provider:PROSPER MANJARREZ DO Location:[facility] Appointment Type:PC Wellness Annual Future [...] 03/09/23 * CT Thorax w/o Contrast 03/09/23 [facility] Evaluation + Plan note Future Appointments Appointment Date:11/01/2023 02:15:00 PM Scheduled Provider: Location:[facility] Appointment Type:PC Nurse Protime Appointment Date:11/16/2023 [...] Date:11/30/2023 03:30:00 PM Scheduled Provider:PROSPER MANJARREZ DO Location:[facility] Appointment Type:PC Wellness Annual Future [...] 03/09/23 * CT Thorax w/o Contrast 03/09/23 [facility] Evaluation + Plan note Future Appointments Appointment Date:01/31/2024 02:20:00 PM Scheduled Provider:PROSPER MANJARREZ DO Location:[facility] Appointment Type:PC OV Appointment Date:02/01/2024 01:15:00 PM [...] CT Abdomen and Pelvis w/o contrast 01/11/24 [facility] Evaluation + Plan note Future Appointments Appointment Date:02/05/2024 12:30:00 PM Scheduled Provider: Location:[facility] Appointment Type:INF/OSP Labwork Appointment Date:02/05/2024 01:15:00 PM Scheduled Provider:BHAVIK TRIANA MD Location:[facility] Appointment Type:HEM ONC OV Follow Up w/Active Treatment Appointment Date:02/05/2024 01:45:00 PM Scheduled Provider: Location:[facility] Appointment Type:INF Chemo: Infusion 120 min (2 hours) Appointment Date:02/28/2024 10:45:00 AM Scheduled Provider: Location:[facility] Appointment Type:PC Nurse Appointment Date:03/14/2024 [...] CT Abdomen and Pelvis w/o contrast 01/11/24 [facility] Evaluation + Plan note Future Appointments Appointment Date:02/28/2024 10:45:00 AM Scheduled Provider: Location:[facility] Appointment Type:PC Nurse Appointment Date:03/04/2024 12:15:00 PM Scheduled Provider: Location:[facility] Appointment Type:INF/OSP Labwork Appointment Date:03/04/2024 01:00:00 PM Scheduled Provider:EZEQUIEL LEAL Location:[facility] Appointment Type:HEM ONC OV Follow Up w/Active Treatment Appointment Date:03/04/2024 01:30:00 PM Scheduled Provider: Location:[facility] Appointment Type:INF Chemo: Infusion 120 min (2 hours) Appointment Date:03/14/2024 11:30:00 AM Scheduled Provider:LIAN FUNG MD Location:[place] [facility] Appointment Type:PALL OV Follow Up Future [...] CT Abdomen and Pelvis w/o contrast 01/11/24 [facility] Evaluation + Plan note Future Appointments Appointment Date:03/27/2024 10:45:00 AM Scheduled Provider: Location:[facility] Appointment Type:PC Nurse Appointment Date:04/02/2024 12:15:00 PM Scheduled Provider: Location:[facility] Appointment Type:INF/OSP Labwork Appointment Date:04/02/2024 01:00:00 PM Scheduled Provider:BHAVIK TRIANA MD Location:[facility] Appointment Type:HEM ONC OV Follow Up w/Active Treatment Appointment Date:04/02/2024 01:30:00 PM Scheduled Provider: Location:[facility] Appointment Type:INF Chemo: Infusion 120 min (2 hours) Appointment Date:05/29/2024 02:00:00 PM Scheduled Provider:PROSPER MANJARREZ DO Location:[facility] Appointment Type:PC OV Future Scheduled [...] CT Abdomen and Pelvis w/o contrast 01/11/24 [facility] Evaluation + Plan note Future Appointments Appointment Date:04/02/2024 12:15:00 PM Scheduled Provider: Location:[facility] Appointment Type:INF/OSP Labwork Appointment Date:04/02/2024 01:00:00 PM Scheduled Provider:BHAVIK TRIANA MD Location:[facility] Appointment Type:HEM ONC OV Follow Up w/Active Treatment Appointment Date:04/02/2024 01:30:00 PM Scheduled Provider: Location:[facility] Appointment Type:INF Chemo: Infusion 120 min (2 hours) Appointment Date:04/02/2024 01:30:00 PM Scheduled Provider:LIAN FUNG MD Location:[place] [facility] Appointment Type:PALL OV Follow Up Appointment Date:04/10/2024 10:30:00 AM Scheduled Provider: Location:[facility] Appointment Type:CV OV Appointment Date:04/24/2024 02:15:00 PM Scheduled Provider: Location:[facility] Appointment Type:PC Nurse Protime Appointment Date:05/29/2024 02:00:00 PM Scheduled Provider:PROSPER MANJARREZ DO Location:[facility] [...] CT Abdomen and Pelvis w/o contrast 01/11/24 [facility] Evaluation + Plan note Future Appointments Appointment Date:04/04/2024 02:00:00 PM Scheduled Provider:AISHWARYA HAMLIN MD Location[facility] Appointment Type:GS OV Appointment Date:04/10/2024 10:30:00 AM Scheduled Provider: Location:[facility] Appointment Type:CV OV Appointment Date:04/24/2024 02:15:00 PM Scheduled Provider: Location:[facility] Appointment Type:PC Nurse Protime Appointment Date:04/30/2024 12:45:00 PM Scheduled Provider: Location:[facility] Appointment Type:INF/OSP Labwork Appointment Date:04/30/2024 01:30:00 PM Scheduled Provider:EZEQUIEL LEAL Location:[facility] Appointment Type:HEM ONC OV Follow Up w/ELECTRICIAN OUTSIDE Active Treat Appointment Date:04/30/2024 02:00:00 PM Scheduled Provider: Location:[facility] Appointment Type:INF Chemo: Infusion 120 min (2 hours) Appointment Date:05/28/2024 01:00:00 PM Scheduled Provider:LIAN FUNG MD Location:[place] [facility] Appointment Type:PALL OV Follow Up Appointment Date:05/29/2024 02:00:00 PM Scheduled Provider:PROSPER MANJARREZ DO Location:[facility] Appointment Type:PC OV Diagnostic Tests [...] CT Abdomen and Pelvis w/o contrast 01/11/24 [facility] Evaluation + Plan note Future Appointments Appointment Date:05/21/2024 01:15:00 PM Scheduled Provider: Location:[facility] Appointment Type:yyCT ABD and Pelvis w/o Contrast Appointment Date:05/21/2024 01:45:00 PM Scheduled Provider: Location:[facility] Appointment Type:yyCT Chest w/o Contrast Appointment Date:05/22/2024 02:15:00 PM Scheduled Provider: Location:[facility] Appointment Type:PC Nurse Protime Appointment Date:05/28/2024 09:30:00 AM Scheduled Provider: Location:[facility] Appointment Type:INF/OSP Labwork Appointment Date:05/28/2024 10:15:00 AM Scheduled Provider:BHAVIK TRIANA MD Location:[facility] Appointment Type:HEM ONC OV Follow Up w/ Active Treatme Appointment Date:05/28/2024 10:45:00 AM Scheduled Provider: Location:[facility] Appointment Type:INF Chemo: Infusion 120 min (2 hours) Appointment Date:05/28/2024 01:00:00 PM Scheduled Provider:LIAN FUNG MD Location:[place] [facility] Appointment Type:PALL OV Follow Up Appointment Date:05/29/2024 02:00:00 PM Scheduled Provider:PROSPER MANJARREZ DO Location:[facility] Appointment Type:PC OV Future Scheduled [...] CT Abdomen and Pelvis w/o contrast 05/21/24 [facility] Evaluation + Plan note Future Appointments Appointment Date:06/13/2024 02:30:00 PM Scheduled Provider:PROSPER MANJARREZ DO Location:[facility] Appointment Type:PC Wellness Annual Appointment Date:06/26/2024 [...] Date:07/03/2024 11:00:00 AM Scheduled Provider:LIAN FUNG MD Location:[place] [facility] Appointment Type:PALL OV Follow Up Appointment [...] CT Abdomen and Pelvis w/o contrast 05/21/24 [facility] Evaluation + Plan note Future Appointments Appointment [...] CT Abdomen and Pelvis w/o contrast 05/21/24 [facility] Evaluation + Plan note Future Appointments [...] CT Abdomen and Pelvis w/o contrast 05/21/24 [facility] Evaluation + Plan note Future Appointments Appointment [...] Date:08/28/2024 11:00:00 AM Scheduled Provider:LIAN FUNG MD Location:[place] [facility] Appointment Type:PALL OV Follow Up Future [...] CT Abdomen and Pelvis w/o contrast 05/21/24 [facility] Evaluation + Plan note Future Appointments [...] CT Abdomen and Pelvis w/o contrast 05/21/24 [facility] Evaluation + Plan note Future Appointments Appointment [...] Date:08/28/2024 11:00:00 AM Scheduled Provider:LIAN FUNG MD Location:[place] [facility] Appointment Type:PALL OV Follow Up Future [...] CT Abdomen and Pelvis w/o contrast 05/21/24 [facility] Evaluation + Plan note Future Appointments Appointment Date:08/08/2024 02:00:00 PM Scheduled Provider:AISHWARYA HAMLIN MD Location[facility] Appointment Type:GS OV Post Op Appointment Date:08/09/2024 11:00:00 AM Scheduled Provider:PROSPER MANJARREZ DO Location:[facility] Appointment Type:PC OV TCM 30 Appointment Date:08/28/2024 11:00:00 AM Scheduled Provider:LIAN FUNG MD Location:[place] [facility] Appointment Type:PALL OV Follow Up Appointment Date:09/17/2024 09:45:00 AM Scheduled Provider: Location:[facility] Appointment Type:INF/OSP Labwork Appointment Date:09/17/2024 10:30:00 AM Scheduled Provider:EZEQUIEL LEAL Location:[facility] Appointment Type:HEM ONC OV Follow Up w/ELECTRICIAN OUTSIDE Active Treat Appointment Date:09/17/2024 11:00:00 AM Scheduled [...] CT Abdomen and Pelvis w/o contrast 05/21/24 [facility] Evaluation + Plan note Future Appointments Appointment [...] Date:10/15/2024 10:30:00 AM Scheduled Provider:LIAN FUNG MD Location:[place] [facility] Appointment Type:PALL OV Follow Up Appointment Date:10/16/2024 02:00:00 PM Scheduled Provider:PROSPER MANJARREZ DO Location:[facility] Appointment Type:PC Acute Appointment Date:10/25/2024 02:00:00 PM Scheduled Provider:PROSPER MANJARREZ DO Location:[facility] Appointment Type:PC OV Future Scheduled [...] CT Abdomen and Pelvis w/o contrast 05/21/24 [facility] Evaluation + Plan note Future Appointments Appointment Date:10/22/2024 08:00:00 AM Scheduled Provider: Location:[facility] Appointment Type:INF/OSP Labwork Appointment Date:10/22/2024 08:45:00 AM Scheduled Provider:BHAVIK TRIANA MD Location:[facility] Appointment Type:HEM ONC OV Follow Up w/ Active Treatme Appointment Date:10/22/2024 09:15:00 AM Scheduled Provider: Location:[facility] Appointment Type:INF Chemo: Infusion 120 min (2 hours) Appointment Date:10/23/2024 02:15:00 PM Scheduled Provider: Location:[facility] Appointment Type:PC Nurse Protime Appointment Date:10/25/2024 02:00:00 PM Scheduled Provider:PROSPER MANJARREZ DO Location:[facility] Appointment Type:PC OV Future Scheduled [...] CT Abdomen and Pelvis w/o contrast 05/21/24 [facility] Evaluation + Plan note Future Appointments Appointment Date:10/23/2024 02:15:00 PM Scheduled Provider: Location:[facility] Appointment Type:PC Nurse Protime Appointment Date:10/25/2024 02:00:00 PM Scheduled Provider:PROSPER MANJARREZ DO Location:[facility] Appointment Type:PC OV Appointment Date:11/19/2024 [...] CT Abdomen and Pelvis w/o contrast 05/21/24 [facility] Evaluation + Plan note Future Appointments Appointment Date:11/27/2024 03:45:00 PM Scheduled Provider: Location:[facility] Appointment Type:PC Nurse Protime Appointment [...] CT Abdomen and Pelvis w/o contrast 05/21/24 [facility] Evaluation note* Skin: Warm and dryMidsternal incision [...] distress, alert and cooperative. 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 Discharge instructions No data available for this section [facility] Discharge instructions* Vascular Access Port: single lumenVascular Access Port: right infraclavicular fossa * Activity:activity as tolerated. May shower. * Labs 1 (Modify Template):Lab Test(s): Basic Metabolic Panel, CBC, MagnesiumDate To Be Drawn: Once the week following dischargeFax Results To: Dr. Prosper Ugarte, PCP and Dr. Rivka Elkins, sample stitcher * Oxygen:Other Instructions incentive spirometer 10x/ hr [...] obtained from the Primary Care Provider or Vending Machine Coin Collector. -For severe chest pain, extreme shortness of [...] of the previous wires. No NSAIDs (common [id number] NSAIDs are ibuprofen/Motrin/Advil, naproxen/Naprosyn/Aleve) for 3 months after cardiac surgery; if NSAIDs needed after 3 months, clear use with sample stitcher before starting. * Call Provider If:- Redness, drainage or other problems with incisions, notify the Cardiac Surgeon'soffice. - Signs and symptoms of Heart Failure: call your Vending Machine Coin Collector if you have weight gain of 3 [...] yesHome Care Agency: Other (with phone number), [facility] [employer] [facility], [employer] skilled Disciplines Ordered: RN/MACHINIST MATE, PTFace to Face Encounter Completed: yesDate of Encounter: [id number] Necessity for Homecare (based on clinical findings): [...] afte r the schedule time.Phone Number: office [phone] * Follow Up Appointment 2:Physician/Dept/Service: Dr. Brady, cardiac surgeonScheduled Date/Time: 07-Oct-2022 12:30[facility] [phone]: 12:30pm [facility]che[facility] 5th floor radiology, then 1:30pm for appointment in [place] [address] * Follow Up Appointment 3:Physician/Dept/Service: Dr. Prosper Ugarte, PCPScheduled Date/Time: 08-Sep-2022 13:00Location: [address] [id number] [phone] Number: [phone]: Please bring insurance information and photo ID * Follow Up Appointment 4:Physician/Dept/Service: Dr. Rivka Elkins, General CardiologyScheduled Date/Time: 05-Sep-2022 10:00Location: [facility]; [facility] [address] [facility] [address]Cmjxi Number: [phone]: Please bring insurance information and photo ID * Follow Up Appointment 5:Physician/Dept/Service: Dr. Bhavik Triana, OncologyScheduled Date/Time: 01-Sep-2022 10:30Location: [facility]; [address] [place] [address] [place] [phone] Number: [phone]: Please bring insurance information and photo ID * Coumadin (Warfarin) Follow-Up Monitoring:Physician/Dept/Service: Dr. Prosper Valentinte/Time next PT/INR due: 31-Aug-2022 10:45Phone Number: [phone] * Follow Up Appointment 6:Physician/Dept/Service: Dr. Doron Gonzalez - Vascular MedicineReason for Referral: RA mass, s/p pulmonary embolectomyScheduled Date/Time: 11-Oct-2022 15:00Location: [facility] [place] [address] 6Phone Number: [phone]: follow-up appointment: 10/11/22 @ 3:00 pm * Follow Up Appointment 7:Physician/Dept/Service: INR checkReason for Referral: warfarinScheduled Date/Time: 31-Aug-2022 10:45Location: Dr. Ugarte's officePhone Number: [phone] [facility] No data available for this section [facility] SuAllvoicesry note* MELANI Martinez: PERFORM Event Display: Patient Summary Documents Authored Date: [id number] [facility] Summary Purpose Family History No Family [...] embolism Procedures CONSULT TO VASCULAR MEDICINE OFFICE/OUTPATIENT [facility] MDM 60 MINUTES Yasir Bradford, ELECTRICIAN OUTSIDE.WORKS MANAGER [address] [place] [address] Referral ID Status Reason Start Date Expiration Date Visits Requested Visits Authorized [id number] Authorized PCP Requested Referral 4 11/22/2024 1 1 Specialty Diagnoses / Procedures Referred By Kinza t Referred To Contact [facility] Diagnoses 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) SOB (shortness of breath) Procedures ECHO WITH AGITATED SALINE CONTRAST ECHO TRANSTHORAC R-T 2D W/WO M-MODE REC COMP Yasir Bradford, ELECTRICIAN OUTSIDE.WORKS MANAGER [address] [place] [address] [facility] [place] [address] [place] [address] Referral ID Status Reason Start Date Expiration Date Visits Requested Visits Authorized [id number] New Request Auto-Generat ed Referral 4 11/22/2024 1 1 Specialty Diagnoses / Procedures Referred By Contac t Referred To [facility] Diagnoses 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) SOB (shortness of breath) Procedures US LEG VEIN DVT JACI VAS LAB DUP-SCAN XTR VEINS COMPLETE BILATERAL STUDY Yasir Bradford, ELECTRICIAN OUTSIDE.[facility] [address] [address] Heart And Vascular [address] [address] Referral ID Status Reason Start Date Expiration Date Visits Requested Visits Authorized [id number] New Request Auto-Generat ed Referral 11/22/2024 1 1 Specialty Diagnoses / Procedures [facility] To Contact CT [facility] Diagnoses 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) SOB (shortness of breath) Procedures CT CHEST W IVCON PE DIAGNOSTIC COMPUTED TOMOGRAPHY THORAX W/CONTRAST Yasir Bradford, ELECTRICIAN OUTSIDE.[facility] [address] [place] [id number] Imaging [facility] Referral ID Status Reason Start Date Expiration Date Visits Requested Visits Authorized [id number] New Request Auto-Generat ed Referral 4 12/22/2024 1 1 Specialty Diagnoses / Procedures [facility] Referred To Contact MOLECULAR & FUNCTIONAL IMAGING Diagnoses 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) SOB (shortness of breath) Procedures NM LUNG VENT / PERF VQ PULMONARY VENTILATION & PERFUSION IMAGING Yasir Bradford, ELECTRICIAN OUTSIDE.[facility] [address] [place] [id number] Molecular & Functional Imaging [address] [place] [id number] Referral ID Status Reason Start Date Expiration Date Visits Requested Visits Authorized [id number] New Request Auto-Generat ed Referral 4 12/22/2024 1 1 Specialty Diagnoses / Procedures [facility] Diagnoses 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) SOB (shortness of breath) Procedures SIX MINUTE WALK CARDIOPULMONARY EXERCISE STRESS Yasir Bradford, ELECTRICIAN OUTSIDE.WORKS MANAGER [address] [address] [address] Referral ID Status Reason Start Date Expiration Date Visits Requested Visits Authorized [id number] New Request Auto-Generat ed Referral 4 12/22/2024 1 1 Specialty Diagnoses / Procedures Referred By Contac t Referred To Contact [facility] Diagnoses 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) SOB (shortness of breath) Procedures LUNG DIFFUSION CAPACITY (DLCO) DIFFUSING CAPACITY Yasir Bradford APRN.WORKS MANAGER [address] [place] [phone] Respiratory [place] [phone] Referral ID Status Reason Start Date Expiration Date Visits Requested Visits Authorized [id number] New Request Auto-Generat ed Referral 4 12/22/2024 1 1 Specialty Diagnoses / Procedures Referred By Contac t Referred To Contact [facility] Diagnoses 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) SOB (shortness of breath) Procedures LUNG VOLUMES Yasir Bradford APRN.WORKS MANAGER [address] [place] [phone] Respiratory [place] [phone] Referral ID Status Reason Start Date Expiration Date Visits Requested Visits Authorized [id number] New Request Auto-Generat ed Referral 12/22/2024 1 1 Specialty Diagnoses / Procedures Referred By Contac t Referred To Contact [facility] Diagnoses 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) SOB (shortness of breath) Procedures SPIROMETRY WITH DILATOR IF OBSTRUCTED BRNCDILAT RSPSE SPMTRY PRE&POST-BRNCDILAT ADMN Yasir Bradford, ELECTRICIAN OUTSIDE.WORKS MANAGER [address] [address] Respiratory [place] [address] [place] [address] Referral ID Status Reason Start Date Expiration Date Visits Requested Visits Authorized [id number] New Request Auto-Generat ed Referral 12/22/2024 1 1 Specialty Diagnoses / Procedures Referred By Kinza t Referred To Contact Cardiology Diagnoses Typical atrial flutter (CMS/HCC) Right atrial mass SOB (shortness of breath) on exertion Procedures Transthoracic Echo (TTE) Complete AK ECHO TRANSTHORC R-T 2D W/WO M-MODE REC F-UP/LMTD AK DOP ECHOCARD COLOR FLOW VELOCITY MAPPING AK DOP ECHOCARD PULSE WAVE W/SPECTRAL F-UP/LMTD STD Rivka Elkins MD [address] [facility] [address] [place] [address] Referral ID Status Reason Start Date Expiration Date Visits Requested Visits Authorized [id number] Authorized Perform Procedure 11/04/2022 05/03/2023 1 1 Additional Source Comments Care Team (unrecognized sect ion and content) Wood Calker Relationship Specialty Start Date End Date Prosper Manjarrez DO PCP - General 09/25/15 Wood Calker Relationship Specialty Start Date End Date Prosper Manjarrez DO PCP - General 09/25/15 [place] C[place]er Relationship Specialty Start Date End Date Noah Sepulveda MD [address] [facility] [address] [place] [phone] Referring Cardiology 11/16/23 Wood Calker Relationship Specialty Start Date End Date Noah Sepulveda MD [address] [facility] [address] [place] [address] Referring Cardiology 11/16/23 Care Team (unrecognized sect ion and content) Personnel Name: PROSPER MANJARREZ DO Address: Address: [address], [place] [address] [place] [address] Care Team Personnel Name: PROSPER MANJARREZ DO Position: P4 Physician - Primary Care Med Service: Active Provider Member Role: Primary Care Physician Address: Address: [address] [place] [address]- Name: HAN STOVER MD Member Role: Oncologist Address: Address: [address] [place] [address] [address] Name: BHAVIK TRIANA MD Position: P4 Oncology Provider Med Service: AMB HEM/ONC Member Role: Oncologist Address: Address: [address] [place] [address] [place]ematology [place] [address]- Name: FLO DE LEON MD Position: P4 Physician - Urologist Member Role: Urologist Address: Address: [address] [place], [place] [id number]- Care Team Related Persons Name: PROST, CHELSEY Care Team Personnel Name: PROSPER MANJARREZ DO Position: P4 Physician - Primary Care Med Service: Active Provider Member Role: Primary Care Physician Address: Address: [address] [place] [place] [id number]- Name: HAN STOVER MD Member Role: Oncologist Address: Address: [address] [place] [address] [address] [place] [address] Name: BHAVIK TRIANA MD Position: P4 Oncology Provider Med Service: AMB HEM/ONC Member Role: Oncologist Address: Address: [address] [place] [address] Hematology [place] [address]- Name: FLO DE LEON MD Position: P4 Physician - Urologist Member Role: Urologist Address: Address: [address] [place] [address] [address] [place] [address]- [place] Care Team Related Persons Name: PROST, CHELSEY Care Team Personnel Name: PROSPER MANJARREZ DO Position: P4 Physician - Primary Care Member Role: Primary Care Physician Address: Address: [address] [place] [address]- Name: HAN STOVER MD Member Role: Oncologist Address: Address: [address] [facility] [address] [place] [address] Name: BHAVIK TRIANA MD Position: P4 Oncology Provider Member Role: Oncologist Address: Address: [address] [place] [address] Hematology [place] [address]- Name: FLO DE LEON MD Position: P4 Physician - Urologist Member Role: Urologist Address: Address: [address] [place] [address] [place] [address]- Name: Elva Paez RN Position: P4 stapler coil unit Member Role: RN Care Team Related Persons Name: PROST, CHELSEY Care Team Personnel Name: PROSPER MANJARREZ DO Position: P4 Physician - Primary Care Member Role: Primary Care Physician Address: Address: [address] [place] [address]- Name: HAN STOVER MD Member Role: Oncologist Address: Address: [address] [place] [address] [employer] [address] [place] [address] Name: BHAVIK TRIANA MD Position: P4 Oncology Provider Member Role: Oncologist Address: Address: [address] [place] [address] Hematology [place] [address]- Name: FLO DE LEON MD Position: P4 Physician - Urologist Member Role: Urologist Address: Address: [address] [place], [place] [id number]- Care Team Related Persons Name: PROST, CHELSEY Care Team Personnel Name: PROSPER MANJARREZ DO Position: P4 Physician - Primary Care Member Role: Primary Care Physician Address: Address: [address] [place], [place] [id number]- Name: HAN STOVER MD Member Role: Oncologist Address: Address: [address] [place] [address] [place] Name: BHAVIK TRIANA MD Position: P4 Oncology Provider Member Role: Oncologist Address: Address: [address] [place] [address] Hematology and Oncology [place] [id number]- Name: FLO DE LEON MD Position: P4 Physician - Urologist Member Role: Urologist Address: Address: [address] [place] [address] [place] [id number]- Name: HENOK Wilhelm Position: ED RN Member Role: ED RN Name: DONNA MOCK MD Position: ED Physician Member Role: Attending Physician Address: Address: [facility] [address] [place], [place] [address] Care Team Related Persons Name: PROST, CHELSEY Care Team Personnel Name: PROSPER MANJARREZ DO Position: P4 Physician - Primary Care Member Role: Primary Care Physician Address: Address: [address] Name: HAN STOVER MD Member Role: Oncologist Address: Address: [address] [place] [address] [address] Name: BHAVIK TRIANA MD Position: P4 Oncology Provider Member Role: Oncologist Address: Address: [address] [place] [address] Hematology and Oncology [address] Name: FLO DE LEON MD Position: P4 Physician - Urologist Member Role: Urologist Address: Address: [address] [place] [address] [place] [id number]- Care Team Related Persons Name: PROST, CHELSEY Care Team Personnel Name: PROSPER MANJARREZ DO Position: P4 Physician - Primary Care Member Role: Primary Care Physician Address: Address: [address] [place] [address] Name: HAN STOVER MD Member Role: Oncologist Address: Address: [address] [place] [address] [address] [place] [id number] [place] Name: BHAVIK TRIANA MD Position: P4 Oncology Provider Member Role: Oncologist Address: Address: [address] [place] [address] Hematology [place] [address]- Name: FLO DE LEON MD Position: P4 Physician - Urologist Member Role: Urologist Address: Address: [address] [place] [address] [place] [id number]- Care Team Related Persons Name: PROST, CHELSEY Care Team Personnel Name: PROSPER MANJARREZ DO Position: P4 Physician - Primary Care Member Role: Primary Care Physician Address: Address: [address] [facility] [place] [address]- [place] Name: HAN STOVER MD Member Role: Oncologist Address: Address: [address] [place] [address] Name: BHAVIK TRIANA MD Position: P4 Oncology Provider Member Role: Oncologist Address: Address: [address] [place] [address] [place] [address]- Name: FLO DE LEON MD Position: P4 Physician - Urologist Member Role: Urologist Address: Address: [address] [facility] [address] [place] [address]- Name: HENOK Clark Position: P4 stapler coil unit Member Role: RN Care Team Related Persons [...] section and content) DATE CREATED AUTHOR 09/05/2022 [facility] DATE CREATED AUTHOR AUTHOR'S ORGANIZ ATION 10/11/2022 [facility] DATE CREATED AUTHOR AUTHOR'S ORGANIZ ATION 10/14/2022 [facility] DATE CREATED AUTHOR AUTHOR'S ORGANIZ ATION 12/04/2022 [facility] DATE CREATED AUTHOR AUTHOR'S ORGANIZ ATION 09/18/2023 [facility] DATE CREATED AUTHOR AUTHOR'S ORGANIZ ATION 10/21/2023 [facility] ([place] DATE CREATED AUTHOR AUTHOR'S ORGANIZ ATION 11/23/2023 [facility] DATE CREATED AUTHOR AUTHOR'S ORGANIZ ATION 03/12/2024 [facility] DATE CREATED AUTHOR AUTHOR'S ORGANIZ ATION 11/28/2024 [facility] DATE CREATED AUTHOR AUTHOR'S ORGANIZ ATION 11/30/2024 [facility] DATE CREATED AUTHOR AUTHOR'S ORGANIZ ATION 12/17/2024 [facility] Reason for Visit (unrecogniz ed section and content) Specialty Diagnoses / Procedures Referred By Contac t Referred To Contact Cardiology Diagnoses Typical atrial flutter (CMS/HCC) Right atrial mass SOB (shortness of breath) on exertion Procedures Transthoracic Echo (TTE) Complete AK ECHO TRANSTHORC R-T 2D W/WO M-MODE REC F-UP/LMTD AK DOP ECHOCARD COLOR FLOW VELOCITY MAPPING AK DOP ECHOCARD PULSE WAVE W/SPECTRAL F-UP/LMTD STD Rivka Elkins MD [address] [place] [address] Referral ID Status Reason Start Date Expiration Date Visits Requested Visits Authorized [id number] Authorized Perform Procedure 11/04/2022 05/03/2023 1 1 Specialty Diagnoses / Procedures Referred By Contac t Referred To Contact Cardiology Diagnoses Typical atrial flutter (CMS/HCC) Right atrial mass SOB (shortness of breath) on exertion Atypical atrial flutter (CMS/HCC) Pulmonary thrombosis (CMS/HCC) Procedures Holter or Event Machine Operators Rivka Elkins MD [address] [place] [address] Referral ID Status Reason Start Date Expiration Date V isits Requested Visits Authorized [id number] Authorized 11/04/2022 05/03/2023 1 1 Reason Comments [...] or prosecute any alcohol or drug abuse patient.[facility] CenterIn the event this information is protected by the Federal Confidentiality of Alcohol and Drug Abuse Patient Records regulations: The Federal rules restrict any use of the information to criminally investigate or prosecute any alcohol or drug abuse patient.[facility] CenterIn the event this information is protected by the Federal Confidentiality of Alcohol and Drug Abuse Patient Records regulations: The Federal rules restrict any use of the information to criminally investigate or prosecute any alcohol or drug abuse patient.[facility] CenterIn the event this information is protected by the Federal Confidentiality of Alcohol and Drug Abuse Patient Records regulations: The Federal rules restrict any use of the information to criminally investigate or prosecute any alcohol or drug abuse patient.[facility] FOR RECORDS PERTAINING TO PATIENTS WHO ARE [...] BE BASED ON THE PRIMARY CLINICAL RECORDS. [facility] [employer] [facility]. provides no warranty or guarantee of the accuracy or completeness of information in this document.
--- NOTE | 2024-12-29 17:30 | PCM.RX.CS ---
Consult Antibiotic Management Pharmacy has been consulted to manage selected antibiotic: Vancomycin Type of Intervention Type of Consult: New start Suspected Infection Suspected Infection: Sepsis Labs Labs: Sodium 141 mmol/L (133-145) 12/29/24 11:32 Potassium 5.0 mmol/L (3.3-5.1) 12/29/24 11:32 Chloride 101 mmol/L (98-108) 12/29/24 11:32 Carbon Dioxide 15.4 mmol/L (21.0-32.0) L 12/29/24 11:32 Anion Gap 25 (5-15) H 12/29/24 11:32 BUN 26 mg/dL (4-19) H 12/29/24 11:32 Creatinine 2.35 mg/dL (0.70-1.20) H 12/29/24 11:32 Est GFR (MDRD) Non-Af 34 (>60) L 12/29/24 11:32 BUN/Creatinine Ratio 10.9 RATIO (10-20) 12/29/24 11:32 Glucose 275 mg/dL (70-99) H 12/29/24 11:32 Dosing Weight Weight used for dosin lb 3.245 oz Estimated Creatinine Clearance Estimated Creatinine Clearance: 55.2 Goal Trough Goal Trough: 15-20 mcg/mL Pharmacy Plan for Drug Dosing Pharmacy Plan for Drug Dosing: Pharmacy Service will continue tNEW START IV VANCOMYCIN Consulting Physician: Dr. Cui Indication: Sepsis Goal Trough: 15-20 SrCr: 2.35 CrCl: 55.2 Vancomycin Dose: 1000 mg Q12H with first dose 12/30 @ 0600 Pending Level: 12/31/24 @ 0530 Date/Time Labs Ordered Labs to be done on [date and time ordered]: 12/31/24 @ 8951
[2024-12-29] MEDS: 0.9% Normal Saline (1000mL) 1,000 ML 100 ML IV (17:57)
[2024-12-29] MEDS: Vancomycin HCl 1,750 MG in 0.9% Normal Saline (500mL Bag) 500 ML 250 MG IV (17:58)
[2024-12-29] MEDS: 0.9% Saline Lock 10 ML Syringe IV (18:03)
[2024-12-29] MEDS: Meropenem 1 GM in 0.9% Normal Saline (100mL MB+) 100 ML IV (18:07)
--- NOTE | 2024-12-29 19:53 | PCMCONS.TICU ---
HPI Consult Data Date of Consult: 12/29/24 HPI Narrative Reason for Consultation: sp cardiac arrest HPI Narrative: 44Y M PMH ETOH abuse, metastatic renal cell Ca, CHF, CAD, AF, PE who presented sp cardiac arrest. Pt was reportedly found by law enforcement unresponsive and pulseless. Unknown prior downtime. CPR continued for 10 min prior to EMS arrival who placed patient on a Arpan device & continued CPR with 3 rounds of epinephrine given before ROSC achieved. Pt was apparently pulseless and cyanotic on arrival to the ED as well & Arpan device was removed & compressions restarted immediately upon arrival. He received additional Epi & HCO3 before ROSC obtained for a second time. He was intubated, received fluids & was started on NEpi. Rectal temperature low at 94.7 & he was placed on a Melanie hugger. EKG without focal STEs. CT head with findings of diffuse cerebral edema findings consistent with HIE/anoxic brain injury. INR also elevated at 19 & he developed signs of GI bleeding. Multiple conversations were held in the ED with the patient's MPOA sister and involving his parents. They were OK continuing current support including MV and current Nepi infusion to give time for the mother to arrive at bedside tomorrow but no further escalation of care before transitioning to comfort measures only. Hospice consulted and organ donation services notified. Pt arrived to the ICU where I was asked to see the patient given he is on the ventilator. Current drips: Nepi @ 30 ROS: Unable to obtain due to clinical condition. PE: General: acute on chronically ill morbidly obese male, +MV HEENT: pupils fixed/dilated; + ETT, nl nose; supple neck, no masses Cardiovascular: tachy; No murmurs, rubs, gallops; no displaced PMI Respiratory: diminished; chest wall bruising Abdominal: Non-tender; Non distended; hypoBS x 4; No Hepatosplenomegaly Extremities: cool; No cyanosis; capillary refill > 2 sec Neurological: unresponsive to any stimuli, absent pupillary/cough/gag reflexes; no spont resp drive above vent set rate A/P #Acute respiratory failure #SP cardiac arrest #Shock, post-arrest #Acute metabolic acidosis #MARIA ESTHER #Acute liver injury #NSTEMI/elevated troponin #GI bleed #Supratherapeutic INR #?DIC #Anoxic brain injury/HIE #ETOH abuse #Renal cell cancer, metastatic #CHF #CAD #AF #Hx PE -Cont MV; settings reviewed; continue until WLST which is planned for tomorrow -Cont NEpi; currently at max; per earlier discussions no CVC and no additional pressor support NPO SCDs Very poor prognosis; hospice & organ donation services on board; awaiting WLST to allow time for mother to arrive but it is very possible he may not make it until tomorrow; I did update the patient's sister & father who are at bedside and they verbalized full understanding and reinforced plan for no escalation of care as stated above CCT: 60 min The entirety of this encounter was completed via telemedicine. [facility] Medical History (Updated 12/29/24 @ 16:18 by Gutierrez Ann MD) Alcohol abuse T11 vertebral fracture Pulmonary embolism Renal cell carcinoma metastatic to bone CHF (congestive heart failure) CAD (coronary artery disease) Afib Home Medications Medication Instructions Recorded Last Taken Type amiodarone 200 mg tablet 200 mg PO DAILY 12/29/24 Unknown History empagliflozin 10 mg tablet 10 mg PO DAILY 12/29/24 Unknown History (Jardiance) furosemide 40 mg tablet 40 mg PO BID 12/29/24 Unknown History metoprolol tartrate 25 mg tablet 25 mg PO BID 12/29/24 Unknown History oxycodone 5 mg tablet 5 mg PO Q6H PRN PRN pain 12/29/24 Unknown History warfarin 2 mg tablet 2 mg PO DAILY 12/29/24 Unknown History warfarin 4 mg tablet PO 12/29/24 Unknown History Allergy/AdvReac Type Severity Reaction Status Date / Time Penicillins Allergy edema Verified 12/29/24 12:40 Social History Smoking Status: Unknown if ever smoked Objective Data Objective Data Vital Signs: Vital Signs Last response Temperature 36.0 C L 12/29/24 17:45 Temperature Source Temporal 12/29/24 17:45 Pulse Rate 119 H 12/29/24 18:45 Respiratory Rate 18 12/29/24 18:45 Respiratory Effort Mechanically Ventilated 12/29/24 18:23 Respiratory Depth Normal 12/29/24 18:23 Respiratory Pattern Normal 12/29/24 18:23 Blood Pressure 48/40 L 12/29/24 18:45 Blood Pressure Mean 42 12/29/24 18:45 Blood Pressure Source Monitor 12/29/24 18:45 Blood Pressure Position Semi-Fowlers 12/29/24 18:45 Blood Pressure Location Left Forearm 12/29/24 18:45 Pulse Ox 94 12/29/24 18:45 Oxygen Delivery Method Mechanical Ventilator 12/29/24 18:45 Oxygen Flow Rate (L/min) 15 12/29/24 11:44 Fraction of Inspired Oxygen (FIO2) 40 12/29/24 16:44 I&O: I&O Last 24 Hours 12/28/24 12/29/24 12/29/24 23:59 11:59 23:59 Intake Total 2.66 / 1178.44 1175.78 / 1178.44 Balance 2.66 / 1178.44 1175.78 / 1178.44 I&O: Total Stay 12/29/24 11:30 thru 12/29/24 18:45 Intake Total 1178.44 Balance 1178.44 Current Meds Ordered / Administered: Current meds ordered / Administered Generic Name Dose Route Start Last Admin Trade Name Freq PRN Reason Stop Dose Admin Acetaminophen 650 mg 12/29/24 17:38 Acetaminophen 325 Mg Tablet PO Q6H PRN PRN Pain 1-10 Or Fever>100.7 Albuterol Sulfate 2.5 mg 12/29/24 17:38 Albuterol 2.5 Mg/3 Ml Vial.Neb. INHALATION Q2H PRN PRN SOB &/OR WHEEZING Dexamethasone Sodium Phosphate 4 mg 12/29/24 17:50 12/29/24 18:28 Dexamethasone 4 Mg/Ml Vial IV 4 mg Q8 ARA Administration Norepinephrine Bitartrate 8 mg 250 mls @ 9.375 mls/hr 12/29/24 11:50 12/29/24 18:45 / Sodium Chloride CONT INF 30 mcg/min .[id number] ARA 56.3 mls/hr Protocol Titration 5 MCG/MIN Sodium Chloride 1,000 mls @ 100 mls/hr 12/29/24 17:11 12/29/24 17:57 IV 12/30/24 13:10 100 mls/hr .Q10H ARA Administration Vancomycin IV-PHARMACY TO DOSE 500 mls @ 250 mls/hr 12/29/24 18:00 12/29/24 18:29 1 each/ Sodium Chloride IV Not Given DAILY ARA Protocol Meropenem 1 gm/ Sodium 100 mls @ 33 mls/hr 12/29/24 17:11 12/29/24 18:07 Chloride IV 33 mls/hr Q8 ARA Administration Vancomycin HCl 1,000 mg/ 270 mls @ 250 mls/hr 12/30/24 06:00 Sodium Chloride IV Q12H ARA Sodium Chloride 250 mls @ 15 mls/hr 12/29/24 17:54 IV .[id number] PRN Saline Flush Sodium Chloride 250 mls @ 15 mls/hr 12/29/24 17:54 IV .[id number] PRN Additional IVPB Infusion Nitroglycerin 0.4 mg 12/29/24 17:38 Nitroglycerin (Inpatient Use) 0.4 Mg Tab.Subl SL Q5M PRN CARDIAC/CHEST PAIN Ondansetron HCl 4 mg 12/29/24 17:38 Ondansetron 4 Mg/2 Ml Vial IV Q8H PRN PRN NAUSEA/VOMITING Sodium Chloride 10 - 40 ml 12/29/24 17:54 12/29/24 18:03 0.9% Saline Lock 10 Ml Syringe IV 40 ml UD PRN Administration SALINE FLUSH Vancomycin Protocol 1 lab 12/31/24 04:30 Vancomycin Trough/Random Due MC 12/31/24 06:30 DAILY ARA Lab / Micro Data 12/29/24 11:32 12/29/24 11:32 Labs: Laboratory Results - last 24 hr 12/29/24 11:32: WBC 18.7 H, RBC 4.70, Hgb 12.9 L, Hct 45.5, MCV 96.8 H, MCH 27.4, MCHC 28.4 L, RDW Std Deviation 71.7 H, RDW Coeff of Lee 20.1 H, Plt Count 261, MPV 9.9, Neut % (Auto) Not Reportable, Absolute Neuts (auto) 14.4 H, Absolute Lymphs (auto) 2.98, Total Counted 100, Neutrophils % (Manual) 71 H, Band Neutrophils % 6 H, Lymphocytes % (Manual) 16 L, Eosinophils % (Manual) 3, Metamyelocytes % 2 H, Myelocytes % 2 H, Diff Path Review May foll, Platelet Estimate ADEQUATE, RBC Morphology N CHROM, Anisocytosis 1+, Sodium 141, Potassium 5.0, Chloride 101, Carbon Dioxide 15.4 L, Anion Gap 25 H, BUN 26 H, Creatinine 2.35 H, Estim Creat Clear Calc 55.18, Est GFR (MDRD) Non-Af 34 L, BUN/Creatinine Ratio 10.9, Glucose 275 H, Lactic Acid 12.8 H*, Calcium 8.6, Total Bilirubin 0.43, AST 97 H, ALT 80 H, Alkaline Phosphatase 96, Troponin T High Sens 17, Total Protein 6.2, Albumin 3.4 L, Globulin 2.8, Albumin/Globulin Ratio 1.2 12/29/24 11:35: POC Glucose 200 H 12/29/24 13:30: PT > 120.0 H, INR > 19.5 H* 12/29/24 13:40: Urine Color Yellow, Urine Clarity Sl. Cloudy, Urine pH 6.5, Ur Specific [place] 1.020, Urine Protein 500 H, Urine Glucose (UA) 1000 H, Urine Ketones Negative, Urine Occult Blood 250 H, Urine Nitrite Negative, Urine Bilirubin Negative, Urine Urobilinogen Normal, Ur Leukocyte Esterase 25 H, Urine RBC 10-25 SEEN, Urine WBC 10-25 SEEN, Ur Squamous Epith Cells 5-10 SEEN, Urine Bacteria 0 SEEN, Urine Mucus 0 SEEN 12/29/24 14:10: Troponin T Hi Sens 2 Hr 45 H ABG Data ABG results: ABG 12/29/24 12/29/24 12:03 13:16 Specimen Type ART ART Sample Site L Radial L Radial pH 6.92 L* 7.12 L* Bicarbonate Actual 16.6 L 17.6 L Total CO2 19 19 Base Excess -16 L -12 L O2 Saturation 100 H 94 O2 % 100.0 40.0 ABG pCO2 80.6 H* 54.0 H ABG pO2 328 H* 97 Irineo Test Positive Positive Respiration Rate 18 18 O2 Delivery Device Not entered Adult Vent Vent Mode AC AC Tidal Volume 500.0 500.0 POC PEEP 10 5 Crit Call To/Read Back Yes Yes Blood Gas Notified Whom dr jose luis ann Blood Gas Notified Time 12:05:07 13:18:41 Imaging Radiology Impression Brain CT 12/29/24 11:44 IMPRESSION: Diffuse cerebral edema with loss of the dey-white matter differentiation, narrowing of the lateral ventricles and near-complete effacement of the basilar cisterns. Findings suggest anoxia No demonstrated acute hemorrhage or midline shift. Hyperdensity along the tentorium is normal No skull fracture or scalp hematoma Paranasal sinusitis Reading Location: [id number] Chest X-Ray 12/29/24 12:01 IMPRESSION: No acute pulmonary process Support lines and tubes as described, no complications Reading Location: [facility] Assessment and Plan . Assessment and plan: Critical Care Time: The entirety of this encounter was done via Telemedicine
[2024-12-29] MEDS: Norepinephrine 8 MG in 0.9% Normal Saline (250mL Bag) 242 ML 56.3 MG CONT INF (20:41)
[2024-12-30] VITALS (42 sets, daily range): BP systolic 0–91; BP diastolic 0–58; PULSE 0–129; RESP 18; TEMP 36.2; O2SAT 35–97; BMI 40.6
[2024-12-30] MEDS: Norepinephrine 8 MG in 0.9% Normal Saline (250mL Bag) 242 ML 56.3 MG CONT INF ×3 (00:59→09:38)
[2024-12-30] MEDS: 0.9% Normal Saline (1000mL) 1,000 ML 100 ML IV (05:01)
--- NOTE | 2024-12-30 08:03 | CON.PCM.PA_ITS ---
FORMERLY [facility], [facility] Medical History (Updated 12/29/24 @ 16:18 by Gutierrez Guzman MD) Alcohol abuse T11 vertebral fracture Pulmonary embolism Renal cell carcinoma metastatic to bone CHF (congestive heart failure) CAD (coronary artery disease) Afib Home Medications Medication Instructions Recorded Last Taken Type amiodarone 200 mg tablet 200 mg PO DAILY 12/29/24 Unk nown History empagliflozin 10 mg tablet 10 mg PO DAILY 12/29/24 Unk nown History (Jardiance) furosemide 40 mg tablet 40 mg PO BID 12/29/24 Unknow n History metoprolol tartrate 25 mg tablet 25 mg PO BID 12/29/24 Unknown History oxycodone 5 mg tablet 5 mg PO Q6H PRN PRN pain Unknown History warfarin 2 mg tablet 2 mg PO DAILY 12/29/24 Unkno wn History warfarin 4 mg tablet PO 12/29/24 Unknown History Allergy/AdvReac Type Severity Reaction Status Date / Time Penicillins Allergy edema Verified 12/29/24 12:40 Social History Smoking Status: Unknown if ever smoked HPI Consult Data Date of Consult: 12/30/24 HPI Narrative HPI Narrative: PAIN ASSESSMENT Location: [ ] Quality: [ ] Severity/Quantity: [ ] Timing/Frequency: [ ] Context: [ ] Factors that make it better/worse: [ ] Associated signs & symptoms: [ ] LYNDSAY LOPEZ, is a 44 M who presents [ ] per product inspection coordinator:"44Y M PMH ETOH abuse, metastatic renal cell Ca, CHF, CAD, AF, PE who presented sp cardiac arrest. Pt was reportedly found by law enforcement unresponsive and pulseless. Unknown prior downtime. CPR continued for 10 min prior to EMS arrival who placed patient on a Arpan device & continued CPR with 3 rounds of epinephrine given before ROSC achieved. Pt was apparently pulseless and cyanotic on arrival to the ED as well & Arpan device was removed & compressions restarted immediately upon arrival. He received additional Epi & HCO3 before ROSC obtained for a second time. He was intubated, received fluids & was started on NEpi. Rectal temperature low at 94.7 & he was placed on a Melanie hugger. EKG without focal STEs. CT head with findings of diffuse cerebral edema findings consistent with HIE/anoxic brain injury. INR also elevated at 19 & he developed signs of GI bleeding. Multiple conversations were held in the ED with the patient's MPOA sister and involving his parents. They were OK continuing current support including MV and current Nepi infusion to give time for the mother to arrive at bedside tomorrow but no further escalation of care before transitioning to comfort measures only. Hospice consulted and organ donation services notified. Pt arrived to the ICU where I was asked to see the patient given he is on the ventilator." Palliative Assessment Advanced Directive - Current Admission Advance Directive: Advance Directive ON ADMISSION - REFERENCE 3 Which Advance Directives None 12/29/24 18:11 documents are scanned in? Objective Data Objective Data Vital Signs: Vital Signs Temp Pulse Resp BP Pulse Ox O2 Del Method O2 Flow Rate 97.1 F L 121 H 18 57/30 L 93 Mechanical Ventilator 35 12/30/24 02:00 12/30/24 07:00 12/30/24 07:00 12/30/24 07:00 12/30/24 07:00 12/30/24 07:00 12/30/24 07:00 FiO2 35 12/30/24 06:52 Oxygen Flow Rate (L/min) 35 Oxygen Delivery Method Mechanical Ventilator Weight: 283 lb 4.704 oz Body Mass Index (BMI) 40.6 Intake & Output: Intake and Output for Last 24 Hours 12/28/24 12/29/24 12/30/24 23:59 23:59 23:59 Intake Total 2146.03 / 2160.11 1408.32 / 1408.32 Output Total 1000 / 1000 270 / 270 Balance 1146.03 / 1160.11 1138.32 / 1138.32 Lab / Micro Data 12/29/24 11:32 12/29/24 11:32 Labs: Laboratory Results - last 24 hr 12/29/24 11:32: WBC 18.7 H, RBC 4.70, Hgb 12.9 L, Hct 45.5, MCV 96.8 H, MCH 27.4, MCHC 28.4 L, RDW Std Deviation 71.7 H, RDW Coeff of Lee 20.1 H, Plt Count 261, MPV 9.9, Neut % (Auto) Not Reportable, Absolute Neuts (auto) 14.4 H, Absolute Lymphs (auto) 2.98, Total Counted 100, Neutrophils % (Manual) 71 H, B and Neutrophils % 6 H, Lymphocytes % (Manual) 16 L, Eosinophils % (Manual) 3, M etamyelocytes % 2 H, Myelocytes % 2 H, Diff Path Review June, Platelet Estimate ADEQUATE, RBC Morphology N CHROM, Anisocytosis 1+, Sodium 141, Potassium 5.0, Chloride 101, Carbon Dioxide 15.4 L, Anion Gap 25 H, BUN 26 H, C reatinine 2.35 H, Estim Creat Clear Calc 55.18, Est GFR (MDRD) Non-Af 34 L, BUN/Creatinine Ratio 10.9, Glucose 275 H, Lactic Acid 12.8 H*, Calcium 8.6, Total Bilirubin 0.43, AST 97 H, ALT 80 H, Alkaline Phosphatase 96, Troponin T High Sens 17, Total Protein 6.2, Albumin 3.4 L, Globulin 2.8, Albumin/Globulin Ratio 1.2 12/29/24 11:35: POC Glucose 200 H 12/29/24 13:30: PT > 120.0 H, INR > 19.5 H* 12/29/24 13:40: Urine Color Yellow, Urine Clarity Sl. Cloudy, Urine pH 6.5, Ur Specific [place] 1.020, Urine Protein 500 H, Urine Glucose (UA) 1000 H, Urine Ketones Negative, Urine Occult Blood 250 H, Urine Nitrite Negative, Urine Bilirubin Negative, Urine Urobilinogen Normal, Ur Leukocyte Esterase 25 H, Urine RBC 10-25 SEEN, Urine WBC 10-25 SEEN, Ur Squamous Epith Cells 5-10 SEEN, Urine Bacteria 0 SEEN, Urine Mucus 0 SEEN 12/29/24 14:10: Troponin T Hi Sens 2 Hr 45 H Micro: Microbiology 12/29/24 17:50 Nasal Secretion MRSA (PCR) - Final ABG Data ABG results: ABG 12/29/24 12/29/24 12:03 13:16 Specimen Type ART ART Sample Site L Radial L Radial pH 6.92 L* 7.12 L* Bicarbonate Actual 16.6 L 17.6 L Total CO2 19 19 Base Excess -16 L -12 L O2 Saturation 100 H 94 O2 % 100.0 40.0 ABG pCO2 80.6 H* 54.0 H ABG pO2 328 H* 97 Irineo Test Positive Positive Respiration Rate 18 18 O2 Delivery Device Not entered Adult Vent Vent Mode AC AC Tidal Volume 500.0 500.0 POC PEEP 10 5 Crit Call To/Read Back Yes Yes Blood Gas Notified Whom dr jose luis guzman Blood Gas Notified Time 12:05:07 13:18:41 Radiography Diagnostic Testing: Radiology Impression Brain CT 12/29/24 11:44 IMPRESSION: Diffuse cerebral edema with loss of the dey-white matter differentiation, narrowing of the lateral ventricles and near-complete effacement of the basilar cisterns. Findings suggest anoxia No demonstrated acute hemorrhage or midline shift. Hyperdensity along the tentorium is normal No skull fracture or scalp hematoma Paranasal sinusitis Reading Location: [facility] Chest X-Ray 12/29/24 12:01 IMPRESSION: No acute pulmonary process Support lines and tubes as described, no complications Reading Location: [facility] Impressions & Recommendations Encouter Achieved as a result of this Palliative Care Encounter: [ ] minutes were spent in total for this visit which consisted, primarily of counseling and education dealing with the complex and emotionally intense issues of symptom management and palliative care in the setting of serious and potentially life-threatening illness. Review of documentation, labs and radiological studies. Patient/family had the opportunity to ask questions
--- NOTE | 2024-12-30 10:11 | PN.CC_ITS ---
Assessment & Plan Assessment/Plan (1) Cardiopulmonary arrest: (2) Coma after anoxic event: (3) Respiratory failure: PLAN: Plan The patient was admitted with acute respiratory failure following [id number] cardiac arrest resulting in anoxic brain injury. The patient remains comatose and refractory shock, on Levophed. CODE STATUS was changed yesterday to DNR comfort care. There are tentative plans to proceed with terminal extubation once the patient's family has arrived. Subjective Subjective The patient was seen and examined at the bedside this morning. Events from the last 24 hours have been reviewed. The patient was admitted following [id number] cardiac arrest with ensuing anoxic brain injury. The patient is unresponsive with tentative plans for terminal extubation once family has arrived later today. CODE STATUS was noted to be DNR CC. Objective Data Objective Data The patient's most recent lab work, culture data and imaging studies have all been personally reviewed. Vital Signs: Vital Signs Temp Pulse Resp BP Pulse Ox O2 Del Method O2 Flow Rate 97.1 F L 125 H 18 51/33 L 91 Mechanical Ventilator 35 12/30/24 02:00 12/30/24 09:24 12/30/24 08:41 12/30/24 09:24 12/30/24 08:41 12/30/24 08:00 12/30/24 07:00 FiO2 35 12/30/24 08:41 Oxygen Flow Rate (L/min) 35 Oxygen Delivery Method Mechanical Ventilator Weight: 283 lb 4.704 oz Body Mass Index (BMI) 40.6 Intake & Output: Intake and Output for Last 24 Hours 12/28/24 12/29/24 12/30/24 23:59 23:59 23:59 Intake Total 2146.03 / 2160.11 1542.86 / 1542.86 Output Total 1000 / 1000 270 / 270 Balance 1146.03 / 1160.11 1272.86 / 1272.86 Lab / Micro Data Attestation: I reviewed the patient's lab results. 12/29/24 11:32 12/29/24 11:32 Labs: Laboratory Results - last 24 hr 12/29/24 11:32: WBC 18.7 H, RBC 4.70, Hgb 12.9 L, Hct 45.5, MCV 96.8 H, MCH 27.4, MCHC 28.4 L, RDW Std Deviation 71.7 H, RDW Coeff of Lee 20.1 H, Plt Count 261, MPV 9.9, Neut % (Auto) Not Reportable, Absolute Neuts (auto) 14.4 H, Absolute Lymphs (auto) 2.98, Total Counted 100, Neutrophils % (Manual) 71 H, B and Neutrophils % 6 H, Lymphocytes % (Manual) 16 L, Eosinophils % (Manual) 3, M etamyelocytes % 2 H, Myelocytes % 2 H, Diff Path Review June, Platelet Estimate ADEQUATE, RBC Morphology N CHROM, Anisocytosis 1+, Sodium 141, Potassium 5.0, Chloride 101, Carbon Dioxide 15.4 L, Anion Gap 25 H, BUN 26 H, C reatinine 2.35 H, Estim Creat Clear Calc 55.18, Est GFR (MDRD) Non-Af 34 L, BUN/Creatinine Ratio 10.9, Glucose 275 H, Lactic Acid 12.8 H*, Calcium 8.6, Total Bilirubin 0.43, AST 97 H, ALT 80 H, Alkaline Phosphatase 96, Troponin T High Sens 17, Total Protein 6.2, Albumin 3.4 L, Globulin 2.8, Albumin/Globulin Ratio 1.2 12/29/24 11:35: POC Glucose 200 H 12/29/24 13:30: PT > 120.0 H, INR > 19.5 H* 12/29/24 13:40: Urine Color Yellow, Urine Clarity Sl. Cloudy, Urine pH 6.5, Ur Specific [place] 1.020, Urine Protein 500 H, Urine Glucose (UA) 1000 H, Urine Ketones Negative, Urine Occult Blood 250 H, Urine Nitrite Negative, Urine Bilirubin Negative, Urine Urobilinogen Normal, Ur Leukocyte Esterase 25 H, Urine RBC 10-25 SEEN, Urine WBC 10-25 SEEN, Ur Squamous Epith Cells 5-10 SEEN, Urine Bacteria 0 SEEN, Urine Mucus 0 SEEN 12/29/24 14:10: Troponin T Hi Sens 2 Hr 45 H Micro: Microbiology 12/29/24 17:50 Nasal Secretion MRSA (PCR) - Final ABG Data ABG results: ABG 12/29/24 12/29/24 12:03 13:16 Specimen Type ART ART Sample Site L Radial L Radial pH 6.92 L* 7.12 L* Bicarbonate Actual 16.6 L 17.6 L Total CO2 19 19 Base Excess -16 L -12 L O2 Saturation 100 H 94 O2 % 100.0 40.0 ABG pCO2 80.6 H* 54.0 H ABG pO2 328 H* 97 Irineo Test Positive Positive Respiration Rate 18 18 O2 Delivery Device Not entered Adult Vent Vent Mode AC AC Tidal Volume 500.0 500.0 POC PEEP 10 5 Crit Call To/Read Back Yes Yes Blood Gas Notified Whom dr jose luis guzman Blood Gas Notified Time 12:05:07 13:18:41 Radiography Diagnostic Testing: Radiology Impression Brain CT 12/29/24 11:44 IMPRESSION: Diffuse cerebral edema with loss of the dey-white matter differentiation, narrowing of the lateral ventricles and near-complete effacement of the basilar cisterns. Findings suggest anoxia No demonstrated acute hemorrhage or midline shift. Hyperdensity along the tentorium is normal No skull fracture or scalp hematoma Paranasal sinusitis Reading Location: [facility] Chest X-Ray 12/29/24 12:01 IMPRESSION: No acute pulmonary process Support lines and tubes as described, no complications Reading Location: [id number] Physical Exam Narrative The patient remains intubated and mechanically ventilated. He is currently comatose and unresponsive to noxious and painful stimulation. Pupils are fixed and dilated. He does not initiate any spontaneous breaths on pressure support. Charges/Coding Visit Charges Inpatient E&M: 09582 Subs Hosp L2
--- NOTE | 2024-12-30 11:29 | PCM.DEATH ---
Preliminary Cause of Preliminary Cause of Preliminary Cause of : Cerebral edema due to anoxic brain injury due to cardiac arrest due to presumed shock of unknown origin Date of Admission: 12/29/24 Date of : 12/30/24 Principle Diagnosis Problem List: Active and Suspected Problems (Updated 12/29/24 @ 16:18 by Gutierrez Ann MD) Anoxic cerebral edema (Acute) Cardiopulmonary arrest (Acute) Coma after anoxic event (Acute) DNR (do not resuscitate) discussion (Acute) Respiratory failure (Acute) Supratherapeutic INR (Acute) Hospital Course 44-year-old male history of metastatic renal cell carcinoma, coronary artery disease, CHF, PE on Coumadin presented [facility] ED 12/29/2024 as an [id number] cardiac arrest. He was found unresponsive by law enforcement and they did chest compressions for 10 minutes and then EMS arrived and continued CPR, he received 3 rounds of epi and then ROSC was achieved on arrival to the ED he became pulseless and cyanotic. Reportedly he was at [facility] yesterday for sore throat, bumps on his arm, body aches and muscle pain with no documented fever, vitals within normal limits, he was given azithromycin for cough and vitamin K due to an elevated INR of 10.2, leukocytosis very mild at 12,000. Ultimately was discharged home in stable condition to follow-up with PCP. On representation to our ED ultimately patient achieved ROSC again, he was intubated and was found to be severely acidotic with pH of 6.92, INR greater than 19.5 and had bleeding through perineal and rectal wound. Patient was placed on Levophed drip and goals of care discussion had with family, CT brain suggestive of anoxia. Family opted for DNR CC and patient was placed on various medications and kept intubated while waiting for family to arrive. Ultimately patient became pulseless again and time of 1050. Assessment & Plan Assessment/Plan (1) Anoxic cerebral edema: (2) Cardiopulmonary arrest: (3) Supratherapeutic INR: (4) Lactic acidosis: (5) MARIA ESTHER (acute kidney injury): PLAN: Plan # Prehospital cardiac arrest and anoxic brain injury - Unclear etiology, was at [facility] yesterday but white count only 12, based on H&P patient was given azithromycin and a dose of vitamin K and was discharged home to follow-up with PCP -Suspect secondary to shock, unclear etiology -Has elevated WBC count, vague infectious symptoms when he presented to [facility] yesterday with worsened renal function and lactic acidosis, could be secondary to pts cardiac arrest but cannot r/o septic shock as etiology -Pt 12/30/241049 #Hx PE -on coumadin -INR >19.5 -Pt 12/30/241049 #MARIA ESTHER -Outpt renal fxn w/ 1.66 cr, presenting Cr 2.35 -Secondary to above -Pt 12/30/24 105 #hx metastatic RCC -T[facility] -Pt 12/30/241049
--- NOTE | 2024-12-30 13:15 | NURSING ---
This nurse in room to perform postmortem care. Vent removed, OG removed, both IV's removed, Weldon removed, FMS removed.
--- NOTE | 2024-12-30 13:50 | NURSING ---
0930 talked with patients sister Ewelina update given at this time. Hospice in the room with patient at this time. 1030 called and spoke with Ewelina at this time. Updated her that patients heart rhythm has changed and blood pressure is very low. 1100 call and spoke with Ewelina at this time. Updated sister on patients time of . sister states that they will be in soon to be able to see him. this nurse was also asked about home sister states that she will call mom to see which home to have him sent to. 1300 called sister for update on timing of when they will be here to visit sister states that they probably wont be here for at least another hour. Did get home preference. 1320 called and spoke with home. home to organize a viewing with the family home to come pick up and delivery driver the patient. 1330 called and spoke with sister Ewelina at this time informing her that the home would set up the viewing that way family didnt feel rushed on having to get to the hospital since pts mom was still not yet in town from [place]. 1345 home here for patient pick up and delivery driver
--- NOTE | 2025-01-01 12:40 | CM.ED ---
Social work DUSTY received a call from Julita at [facility] at this day and time (01/01/25 at 1240) inquiring about patient and if patient had passed or was still in need of hospice services. DUSTY stated that patient had on 12/30/24 at 1050. Julita stated closing patient's chart. DUSTY later informed SW Civil Engineering Drafter Magalis SANTOS of phone call. No Davila, SENIOR LINUX ADMINISTRATOR, YARDAGE CALLER
== END 2024-12-30 13:45 | DRG 720 ==
LOC: ED 16:45 → ICU 17:20
PROVIDERS: Admitting Provider Internal Medicine; Emergency Provider Emergency Medicine; Visit Provider Internal Medicine
DX: A41.9 Sepsis, unspecified organism (principal); D65 Disseminated intravascular coagulation [defibrination syndrome]; I46.8 Cardiac arrest due to other underlying condition; K72.00 Acute and subacute hepatic failure without coma; R65.21 Severe sepsis with septic shock; J96.01 Acute respiratory failure with hypoxia; G93.1 Anoxic brain damage, not elsewhere classified; C79.51 Secondary malignant neoplasm of bone; E66.01 Morbid (severe) obesity due to excess calories; I50.9 Heart failure, unspecified; F10.10 Alcohol abuse, uncomplicated; I24.89 Other forms of acute ischemic heart disease; I48.91 Unspecified atrial fibrillation; C20 Malignant neoplasm of rectum; S71.101A Unspecified open wound, right thigh, initial encounter; I25.10 Atherosclerotic heart disease of native coronary artery without angina pectoris; S71.102A Unspecified open wound, left thigh, initial encounter; I44.0 Atrioventricular block, first degree; I95.9 Hypotension, unspecified; N17.9 Acute kidney failure, unspecified; F17.210 Nicotine dependence, cigarettes, uncomplicated; Z68.41 Body mass index [BMI] 40.0-44.9, adult; S36.63XA Laceration of rectum, initial encounter; S31.501A Unspecified open wound of unspecified external genital organs, male, initial encounter; K92.2 Gastrointestinal hemorrhage, unspecified; Z66 Do not resuscitate; I49.3 Ventricular premature depolarization; R79.1 Abnormal coagulation profile; X58.XXXA Exposure to other specified factors, initial encounter; Z79.899 Other long term (current) drug therapy; Z86.711 Personal history of pulmonary embolism; Z79.01 Long term (current) use of anticoagulants; Z88.0 Allergy status to penicillin
CPT/HCPCS: 31500; 31720; 36600; 51702; 70450; 71045; 80053; 81001; 82803; 82962; 83605; 84484; 85025; 85610; 87040; 87070; 87077; 87186; 87205; 87641; 92950; 93005; 94002; 94003; 99285; J2185; A4216